=== PATIENT | female | born 1945 | race Caucasian/White ===

== ENCOUNTER 2017-10-13 05:30 | Day surgery (SDC) | payer MEDICARE ==
[~2017-10-13] VITALS: Ht 157.5 cm; Wt 102.1 kg
[~2017-10-13 05:30] MED LIST: ALENDRONATE SOD70 MG PO; AZATHIOPRINE50 MG; AZATHIOPRINE50 MG PO; CLONIDINE HCL0.1 MG PO; CYCLOSPORINE25 MG PO; DULOXETINE HCL60 MG PO; FLUTICASONE PRO16 GM NAS; FLUTICASONE PRO16 GM NS; FUROSEMIDE20 MG PO; GABAPENTIN100 MG PO; GABAPENTIN400 MG PO; GABAPENTIN600 MG PO; HYDROCODON-ACE1 EA10 PO; LEVOTHYROXINE125 MCG PO; METHADONE HCL10 MG PO; METOPROLOL TART50 MG PO; NORCO 5-325 TA1 EACH PO; NORCO 7.5-3251 EACH PO; ONDANSETRON ODT4 MG PO; PRAVASTATIN SOD10 MG PO; SANDIMMUNE25 MG PO; TOPROL XL200 MG PO; TRAZODONE HCL100 MG PO; VICODIN 5-3001 EACH PO; VITAMIN B12-FO1 EACH PO; ZOFRAN4 MG PO
--- NOTE | 2017-10-13 08:47 | NUR ---
10/13/17 0847 Milagro Nolasco 0827 PT ARRIVED REACTIVE, RESP EVEN AND UNLABORED. PT MAINTAINING OWN AIRWAY. PT REORIENTED TO PACU. 0830 PT REPORITNG PAIN 6/10, SOFTWARE COMPUTER SPECIALIST AT BEDSIDE AND PAIN MEDICAITON GIVEN BY SOFTWARE COMPUTER SPECIALIST. 0837 O2 DECREASED TO 4L VIA NC. O2 SAT 98%. 0840 PT REPORTS PAIN DECREASED TO 4/10 AND TOLERABLE, HOB INCREASED TO 30 DEGREES PER REQUEST. 0847 PT ALSEEP, VSS.
[2017-10-13] MEDS ORDERED: OXYCODONE HCL5 MG PO (09:39)
--- NOTE | 2017-11-08 11:11 | OR ---
[facility] [address], [place] [address] Signed DATE OF OPERATION: 10/13/2017 SURGEON: Ofelia Maher DO PREOPERATIVE DIAGNOSES: 1. Postmenopausal bleeding. 2. Thickened endometrium. 3. Fibroid uterus. 4. Chronic kidney disease stage III. 5. Restrictive lung disease. 6. Iatrogenic immunosuppression, status post liver transplant. 7. Obesity. POSTOPERATIVE DIAGNOSES: 1. Postmenopausal bleeding. 2. Endometrial polyp. 3. Thickened endometrium. 4. Chronic kidney disease stage III. 5. Restrictive lung disease. 6. Iatrogenic immunosuppression, status post liver transplant. 7. Cervical stenosis. 8. Obesity. PROCEDURES PERFORMED: 1. Hysteroscopic polypectomy. 2. Dilation and curettage. VICE PRESIDENT OF BRAND MANAGEMENT: Jose Maria Anguiano MD. ANESTHESIA: LMA. ESTIMATED BLOOD LOSS: 10 mL. SPECIMENS: 1. Endometrial polyp. 2. Endometrial biopsy. Electronically Signed By: OFELIA MAHER DO 11/08/17 1111 PATIENT NAME: COLE ERNST OPERATIVE REPORT DATE OF : 45 REPORT #: [id number] PHYSICIAN: OFELIA MAHER DO PCP: KI DE JESUS DO REPORT IS CONFIDENTIAL AND NOT TO BE RELEASED WITHOUT AUTHORIZATION [facility] [address] [place] [id number] Signed FINDINGS: The patient with narrow vaginal introitus. Normal vagina for postmenopausal female that is well-supported with a very small cervix at the apex. Cervix with significant cervical stenosis. Cervical canal with a small polyp and further up into the endometrial canal, there is a large, irregular polyp noted. The endometrium is irregular appearing throughout. COMPLICATIONS: None. INDICATIONS FOR PROCEDURE: Ms. Ernst is a pleasant 71-year-old postmenopausal female, who presented for postmenopausal bleeding. This started approximately one month ago. She went through menopause in her late 40s. She was never on hormonal contraception and has never been . Her last Pap smear was approximately six years ago and she has never had an abnormal Pap. An ultrasound was performed that showed thickened endometrium at 8.4 mm with focal microcalcifications and a heterogeneous myometrium. The patient's medical history is complicated by liver transplant, restrictive lung disease, and chronic kidney disease stage III. Her case was reviewed with her primary care physician, Dr. De Jesus, who felt that she was in optimal health condition for surgery. Risks, benefits, and alternatives were discussed in detail with the patient. The patient understands and wishes to proceed with the procedure. DESCRIPTION OF PROCEDURE: The patient was taken to the operating room. Time-out was performed to confirm correct patient and correct procedure. LMA anesthesia was established and the patient was prepped and draped in the dorsal lithotomy position with her feet in Yellofin stirrups. ICPs were on running and no preop antibiotics or heparin were indicated. The introitus was very narrow and [place] retractors were used to visualize the cervix. This proved to be difficult and a narrow Daisy speculum was then used with much improved visualization of the cervix. Anterior lip of the cervix was grasped with a single-tooth tenaculum. The cervical os was noted to be stenotic and it was serially dilated using lacrimal dilators as well as Hegar dilators. Once the os was dilated to a #5 Hegar dilator, the operative scope was placed into the cervical os and advanced under direct visualization into the uterine cavity. An endocervical polyp was noted as well as a large endometrial polyp. The endometrium appeared irregular throughout with calcifications. A MyoSure Reach device was selected and used to resect the endocervical and endometrial polyp. A separate biopsy was performed to resect the endometrium with customer account representative sampling throughout. The hysteroscope was withdrawn. The single-tooth tenaculum removed and the cervix noted to be hemostatic. The patient was then taken to PACU in good and stable condition after the perineum was evaluated and found to have no lacerations noted. Electronically Signed By: OFELIA MAHER DO 11/08/17 1111 PATIENT NAME: COLE ERNST OPERATIVE REPORT DATE OF : 45 REPORT #: [id number] PHYSICIAN: OFELIA MAHER DO PCP: KI DE JESUS DO REPORT IS CONFIDENTIAL AND NOT TO BE RELEASED WITHOUT AUTHORIZATION [facility] [address] [id number] Signed Sponge, needle, and instrument count were correct x2 at the end of the procedure. Dr. Anguiano was present and assisted with retraction and visualization given the difficulty of visualization. Ofelia Maher DO JELISE/FAROOQ /[id number] Copies: ~ Electronically Signed By: OFELIA MAHER DO 11/08/17 1111 PATIENT NAME: COLE ERNST OPERATIVE REPORT DATE OF : 45 REPORT #: [id number] PHYSICIAN: OFELIA MAHER DO PCP: KI DE JESUS DO REPORT IS CONFIDENTIAL AND NOT TO BE RELEASED WITHOUT AUTHORIZATION
== END 2017-10-13 10:10 | disposition home or self-care (01) ==
LOC: DS 05:30 → OPS 05:30 → DS 06:45 → OPS 10:10
PROVIDERS: Obstetrics & Gynecology
PROC: 0UDB8ZZ Extraction of Endometrium, Via Natural or Artificial Opening Endoscopic (ICD-10-PCS; 2017-10-13)
PROC: 0UB98ZZ Excision of Uterus, Via Natural or Artificial Opening Endoscopic (ICD-10-PCS; principal; 2017-10-13 06:45)
DX: N85.02 Endometrial intraepithelial neoplasia [EIN] (principal); I12.9 Hypertensive chronic kidney disease with stage 1 through stage 4 chronic kidney disease, or unspecified chronic kidney disease; N18.3 Chronic kidney disease, stage 3 (moderate); E78.00 Pure hypercholesterolemia, unspecified; E03.9 Hypothyroidism, unspecified; D63.1 Anemia in chronic kidney disease; J98.4 Other disorders of lung; M54.6 Pain in thoracic spine; M54.5 Low back pain; G89.29 Other chronic pain; E66.9 Obesity, unspecified; Z79.899 Other long term (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; Z68.41 Body mass index [BMI] 40.0-44.9, adult
CPT/HCPCS: 00952; 88305; J1885; J2704; J3010; J7120

== ENCOUNTER 2018-02-01 08:29 | Inpatient (IN) | payer MEDICARE, MEDICAID ==
[~2018-02-01] VITALS: Ht 157.5 cm; Wt 98.2 kg
--- OUTSIDE RECORDS SUMMARY | ~2018-02-01 | XMS | Clinical Summary ---
Demographics + + + | Address | [address] | | | [place] [address] | + + + | Home Phone | | + + + | Preferred Language | Unknown | + + + | Marital Status | | + + + | Sabianism Affiliation | 1041 | + + + | Race | Unknown | + + + | Ethnic Group | Unknown | + + + Author + + + | Author | [facility] | + + + | Organization | [facility] [employer] [facility] | + + + | Address | Unknown | + + + | Phone | Unavailable | + + + Support + + +---------+ + | Name | Relationship | Address | Phone | + + +---------+ + | Annie Tipton | ECON | Unknown | | + + +---------+ + Care Team Providers + +------+ + | Care Internet Architect Name | Role | Phone | + [...] + + | Vaccine: Influenza | | | | | (#1) | 8 | | | + + + + [...] | MA - GENERIC | MA-GEN | [id number] | Medica | | | | | [...] | Self | [birth year] | Home: | [facility] | | | al/Fam | | 1946 | [phone] | | | [place] | | | [address] | [place] | | | | | | | [address] | + +--------+ +--------+ + +
--- OUTSIDE RECORDS SUMMARY | ~2018-02-01 | XMS ---
Demographics + + + | Address | [address] | | | [address] | | | [place] [address] | + + + | Preferred Language | Unknown | + + + | Marital Status | Unknown | + + + | Scientologist Affiliation | Unknown | + + + | Race | Unknown | + + + | Ethnic Group | Unknown | + + + Author + + + | Author | [facility] | + + + | Organization | [facility] | + + + | Address | [address] | | | [place] [address] | + + + | Phone | | + + + Care Team Providers + + + + | Care Scarfer Operator Name | Role | Phone | + + + + Unavailable | Unavailable | + + + + PROBLEMS +---------+ + + +--------+ + + | Type | Condition | ICD9-CM | BJY30-VT | Onset | Condition | SNOMED | | | | Code | Code | Dates | Status | Code | +---------+ + + +--------+ + + | Problem | Other | G89.29 | | | Active | 50608347 | | | chronic | | | | | | | | pain | | | | | | +---------+ + + +--------+ + + | Problem | Restrictiv | J98.4 | | | Active | 04148981 | | | e lung | | | | | | | | disease | | | | | | +---------+ + + +--------+ + + | Problem | Low back | | M54.5 | | Active | [id number] | | | pain | | | | | | +---------+ + + +--------+ + + | Problem | CKD | | N18.3 | | Active | [id number] | | | (chronic | | | | | | | | kidney | | | | | | | | disease) | | | | | | | | stage 3, | | | | | | | | GFR 30-59 | | | | | | | | ml/min | | | | | | +---------+ + + +--------+ + + | Problem | UTI | | N39.0 | | Active | 22715990 | | | (urinary | | | | | | | | tract | | | | | | | | infection) | | | | | | +---------+ + + +--------+ + + | Problem | Hypertensi | I11.9 | | | Active | 69740009 | | | ve | | | | | | | | arterioscl | | | | | | | | erotic | | | | | | | | cardiovasc | | | | | | | | ular | | | | | | | | disease | | | | | | +---------+ + + +--------+ + + | Problem | Hyperchole | | E78.0 | | Active | 09301046 | | | sterolemia | | | | | | +---------+ + + +--------+ + + | Problem | Hypothyroi | | E03.9 | | Active | 69433469 | | | d | | | | | | +---------+ + + +--------+ + + | Problem | B12 | | E53.8 | | Active | 78961721 | | | deficiency | | | | | | +---------+ + + +--------+ + + | Problem | Hypertensi | | I10 | | Active | 53814328 | | | on | | | | | | +---------+ + + +--------+ + + | Problem | S/P liver | Z94.4 | | | Active | [id number] | | | transplant | | | | | | +---------+ + + +--------+ + + ALLERGIES + + + + +--------+ | Substance | Reaction | Event Type | Date | Status | + + + + +--------+ | Codeine | stomach upset | Drug Allergy | Oct, | Active | + + + + +--------+ SOCIAL HISTORY No smoking Hx information available PLAN OF CARE + +---------+ | Activity | Details | + +---------+ +---+ | | +---+ + + + | Follow Up | 6 Months Reason:null | + + + VITAL SIGNS + + + + | Height | 63 in | 2016-10-22 | + + + + | Weight | 231.0 lbs | 2016-10-22 | + + + + | BMI | 40.92 kg/m2 | 2016-10-22 | + + + + | Heart Rate | 67 /min | 2016-10-22 | + + + + | Blood pressure systolic | 140 mm Hg | 2016-10-22 | + + + + | Blood pressure diastolic | 69 mm Hg | 2016-10-22 | + + + + MEDICATIONS + + + + + + + +--------+ | Medicati | Instruct | Dosage | Frequenc | Start | End Date | Duration | Status | | on | ions | | y | Date | | | | + + + + + + + +--------+ | Famciclo | Orally | 1 tablet | 8h | | | 14 days | Active | | vir 500 | every 8 | | | | | | | | MG | hrs | | | | | | | + + + + + + + +--------+ | CycloSPO | Orally | 3 | 12h | | | | Active | | RINE 25 | Twice a | capsules | | | | | | | MG | day | | | | | | | + + + + + + + +--------+ | Pravasta | Orally | 1 tablet | | | | | Active | | tin | Once a | | | | | | | | Sodium | day at | | | | | | | | 10 MG | bedtime | | | | | | | + + + + + + + +--------+ | Azathiop | Orally | 1 tablet | 24h | | | 30 | Active | | rine 50 | once a | | | | | | | | MG | day | | | | | | | + + + + + + + +--------+ | Fosamax | | 1 tablet | | 11 September, | 10 Jamaal, | 30 | Active | | 70 MG | | | | 2016 | 2016 | day(s) | | + + + + + + + +--------+ | Gabapent | | take 1 | | | | 86 | Active | | in 600 | | tablet | | | | | | | MG | | by mouth | | | | | | | | | three | | | | | | | | | times a | | | | | | | | | day | | | | | | + + + + + + + +--------+ | Metoprol | Orally | 1 tablet | 12h | May, | | | Active | | ol | Twice a | | | 2016 | | | | | Tartrate | day | | | | | | | | 100 MG | | | | | | | | + + + + + + + +--------+ | Levothyr | Orally | 1 tablet | 24h | 14 Aug, | | 30 | Active | | oxine | Once a | every | | 2016 | | | | | Sodium | day | morning | | | | | | | 100 MCG | | on an | | | | | | | | | empty | | | | | | | | | stomach | | | | | | + + + + + + + +--------+ | Lidocain | topical | apply | | 08 October, | | 14 days | Active | | e 2% | every 2 | lightly | | 2017 | | | | | | hours | to | | | | | | | | | affected | | | | | | | | | area | | | | | | + + + + + + + +--------+ | Duloxeti | Orally | 1 | 24h | | | 30 days | Active | | ne HCl | Once a | capsule | | | | | | | 30 MG | day | | | | | | | + + + + + + + +--------+ | Trazodon | Orally | 1 tablet | 24h | 28 September, | | 30 | Active | | e HCl | Once a | at | | 2016 | | day(s) | | | 100 MG | day | bedtime | | | | | | + + + + + + + +--------+ | Alendron | Orally | 1 tablet | 24h | Oct, | 27 Jamaal, | 30 | Active | | ate | Once a | | | 2016 | 2017 | day(s) | | | Sodium | day | | | | | | | | 70 MG | | | | | | | | + + + + + + + +--------+ RESULTS No Results PROCEDURES + + + + + | Procedure | Date Ordered | Related Diagnosis | Body Site | + + + + + | Est Level III | October 22, 2016 | | | | Intermediate | | | | + + + + + IMMUNIZATIONS No Known Immunizations"
--- OUTSIDE RECORDS SUMMARY | ~2018-02-01 | XMS ---
Demographics + + + | Address | [address] | | | [address] | | | [place] [address] | + + + | Preferred Language | Unknown | + + + | Marital Status | Unknown | + + + | Pentecostal Affiliation | Unknown | + + + | Race | Unknown | + + + | Ethnic Group | Unknown | + + + Author + + + | Author | [facility] | + + + | Organization | [facility] | + + + | Address | [address] | | | [place] [address] | + + + | Phone | | + + + Care Team Providers + + + + | Care Physical Metallurgist Name | Role | Phone | + + + + Unavailable | Unavailable | + + + + PROBLEMS + + + + + + + + | Type | Condition | ICD9-CM | KJH22-TN | Onset | Condition | SNOMED | | | | Code | Code | Dates | Status | Code | + + + + + + + + | Problem | Other | G89.29 | | | Active | 11607349 | | | chronic | | | | | | | | pain | | | | | | + + + + + + + + | Problem | Restrictiv | J98.4 | | | Active | 78374846 | | | e lung | | | | | | | | disease | | | | | | + + + + + + + + | Problem | Low back | | M54.5 | | Active | 394538642 | | | pain | | | | | | + + + + + + + + | Assessment | Herpes | B02.8 | | 08 October, | Active | 29341732 | | | zoster | | | 2017 | | | | | with | | | | | | | | complicati | | | | | | | | on | | | | | | + + + + + + + + | Assessment | Age-relate | | M81.0 | 08 October, | Active | [id number] | | | d | | | 2016 | | | | | osteoporos | | | | | | | | is without | | | | | | | | current | | | | | | | | pathologic | | | | | | | | al | | | | | | | | fracture | | | | | | + + + + + + + + | Problem | CKD | | N18.3 | | Active | 096115133 | | | (chronic | | | | | | | | kidney | | | | | | | | disease) | | | | | | | | stage 3, | | | | | | | | GFR 30-59 | | | | | | | | ml/min | | | | | | + + + + + + + + | Problem | UTI | | N39.0 | | Active | 27706280 | | | (urinary | | | | | | | | tract | | | | | | | | infection) | | | | | | + + + + + + + + | Problem | Hypertensi | I11.9 | | | Active | 55712068 | | | ve | | | | | | | | arterioscl | | | | | | | | erotic | | | | | | | | cardiovasc | | | | | | | | ular | | | | | | | | disease | | | | | | + + + + + + + + | Problem | Hyperchole | | E78.0 | | Active | 35174201 | | | sterolemia | | | | | | + + + + + + + + | Problem | Hypothyroi | | E03.9 | | Active | 70953258 | | | d | | | | | | + + + + + + + + | Problem | B12 | | E53.8 | | Active | 20292276 | | | deficiency | | | | | | + + + + + + + + | Problem | Hypertensi | | I10 | | Active | 91923390 | | | on | | | | | | + + + + + + + + | Problem | S/P liver | Z94.4 | | | Active | [id number] | | | transplant | | | | | | + + + + + + + + ALLERGIES + + + + +--------+ | Substance | Reaction | Event Type | Date | Status | + + + + +--------+ | Codeine | stomach upset | Drug Allergy | September, | Active | + + + + +--------+ SOCIAL HISTORY No smoking Hx information available PLAN OF CARE VITAL SIGNS + + + + | Height | 63 in | 2016-10-08 | + + + + | Weight | 233.2 lbs | 2016-10-08 | + + + + | BMI | 41.31 kg/m2 | 2016-10-08 | + + + + | Temperature | 97.8 degrees Fahrenheit | 2016-10-08 | + + + + | Heart Rate | 55 /min | 2016-10-08 | + + + + | Blood pressure systolic | 129 mm Hg | 2016-10-08 | + + + + | Blood pressure diastolic | 65 mm Hg | 2016-10-08 | + + + + MEDICATIONS + [...] Lidocain | topical | apply | | 19 September, | | 14 days | Active | | e 2% | every 2 | lightly | | 2016 | | | | | | hours | to | | | | | | | | | affected | | | | | | | | | area | | | | | | + + + + + + + +--------+ | Tramadol | Orally | 1-2 | | 08 October, | 24 September, | 5 days | Active | | HCl 50 | every 8 | tablets | | 2016 | 2016 | | | | MG | hrs prn | as | | | | | | | | | needed | | | | | | | | | for pain | | | | | | + + + + + + + +--------+ | Famciclo | Orally | 1 tablet | 8h | 08 October, | 2 Oct, | 14 days | Active | | vir 500 | every 8 | | | 2016 | 2016 | | | | MG | hrs [...] + | Est Level III | October 08, 2016 | | | | Intermediate | | | | + + + + + IMMUNIZATIONS No Known Immunizations"
--- OUTSIDE RECORDS SUMMARY | ~2018-02-01 | XMS | Clinical Summary ---
Demographics + + + | Address | [address] | | | [place] [address] | + + + | Home Phone | | + + + | Preferred Language | Unknown | + + + | Marital Status | Single | + + + | Advent Affiliation | 1041 | + + + | Race | Unknown | + + + | Ethnic Group | Unknown | + + + Author + + + | Author | [facility] | | | and [place] | + + + | Organization | [facility] | | [...] Providers + +------+ + | Care Gas Reverser Name | Role | Phone | + [...] + + + Current Medications + + +-------+---------+------+------+-------+ | Prescription | Sig. | Disp. | Refills | Star | End | Statu | | | | | | t | Date | s | | | | | | Date | | | + + +-------+---------+------+------+-------+ | furosemide (LASIX) | Take 20 mg by mouth | | | | | Activ | | 20 mg tablet | Daily. | | | | | e | + + +-------+---------+------+------+-------+ | gabapentin | Take 600 mg by mouth | | | | | Activ | | (NEURONTIN) 600 MG | 3 times daily. | | | | | e | | tablet | | | | | | | + + +-------+---------+------+------+-------+ | cycloSPORINE | Take 25 mg by mouth | | | | | Activ | | (SANDIMMUNE) 25 mg | 3 times daily. | | | | | e | | capsule | | | | | | | + + +-------+---------+------+------+-------+ | fluticasone | 1 spray by Nasal | | | | | Activ | | (FLONASE) 50 | route Daily. | | | | | e | | mcg/nasal spray | | | | | | | + + +-------+---------+------+------+-------+ | azaTHIOprine | Take 50 mg by mouth | | | | | Activ | | (IMURAN) 50 mg | Daily. | | | | | e | | tablet | | | | | | | + + +-------+---------+------+------+-------+ | metoprolol | Take 100 mg by mouth | | | | | Activ | | tartrate (LOPRESSOR) | 2 times daily. | | | | | e | | 50 mg tablet | | | | | | | + + +-------+---------+------+------+-------+ | Levothyroxine | Take by mouth every | | | | | Activ | | Sodium 125 MCG CAPS | morning (before | | | | | e | | | breakfast). | | | | | | + + +-------+---------+------+------+-------+ | methadone 10 mg | Take 10 mg by mouth | | | | | Activ | | tablet | 2 times daily. | | | | | e | + + +-------+---------+------+------+-------+ | | Take 1 tablet by | | | | | Activ | | HYDROcodone-acetamin | mouth every 6 hours | | | | | e | | ophen (NORCO) 5-325 | as needed. | | | | | | | mg per tablet | | | | | | | + + +-------+---------+------+------+-------+ | pravastatin | Take 10 mg by mouth | | | | | Activ | | (PRAVACHOL) 10 mg | nightly. | | | | | e | | tablet | | | | | | | + + +-------+---------+------+------+-------+ Active Problems + + + | Problem [...] | 02/12/2014 | | | (#1) | 8 | [...] | | | + +--------+ +--------+-------+---------+ | [facility] [facility] | [facility] | [id number] | Medica | | | | | HEALTH | | re | | | | | MDCR | | | | | + +--------+ +--------+-------+---------+ + +--------+ +--------+ + + | Guarantor Name | Accoun | Relation to | Date | Phone | Billing Address | | | t Type | Patient | of | | | | | | | | | | + +--------+ +--------+ + + | OPAL ERNST | Person | Self [birth year] | Home: | [address] | | [address] | al/Fam | | 1946 | [phone] | | | [place] | | | [address] | [place] | | | | | | | [address] | + +--------+ +--------+ + +
--- OUTSIDE RECORDS SUMMARY | ~2018-02-01 | XMS | Clinical Summary ---
Demographics + + + | Address | [address] | | | [place] [address] | + + + | Home Phone [...] + + + | Author | [facility] | | | and [place] | + + + | Organization | [facility] | | | [...] Providers + +------+ + | Care Manager Recruiting Name | Role | Phone | + [...] | [facility] | [facility] | [id number] | Medica | | | | | [...] Self | [birth year] | Home: | [address] [facility] [facility] [facility] | | [place] | al/Fam | | 1946 | [phone] | [address] | | | [place] | | | [address] | [place] | | | | | | | [address] | + +--------+ +--------+ + +
--- OUTSIDE RECORDS SUMMARY | ~2018-02-01 | XMS | Clinical Summary ---
Demographics + + + | Address | [address] | | | [place] [address] | + + + | Home Phone | | + + + | Preferred Language | Unknown | + + + | Marital Status | | + + + | Orthodox Affiliation | 1041 | + + + | Race | Unknown | + + + | Ethnic Group | Unknown | + + + Author + + + | Author | [facility] | + + + | Organization | [facility] [employer] [facility] | + + + | Address | Unknown | + + + | Phone | Unavailable | + + + Support + + +---------+ + | Name | Relationship | Address | Phone | + + +---------+ + | Annie Tipton | ECON | Unknown | | + + +---------+ + Care Team Providers + +------+ + | Care Call Center Rn Name | Role | Phone | [...] | MA - GENERIC | MA-GEN | [id number] | Medica | | | | | [...] | Self | [birth year] | Home: | [facility] | | | al/Fam | | 1946 | [phone] | | | [place] | | | [address] | [place] | | | | | | | [phone] | + +--------+ +--------+ + +
--- OUTSIDE RECORDS SUMMARY | ~2018-02-01 | XMS | Clinical Summary ---
Demographics + + + | Address | [address] | | | [place] [address] | + + + | Home Phone [...] Team Providers + +------+ + | Care Filter Cleaner Name | Role | Phone | [...] | [facility] | [facility] | [id number] | Medica | | | | | [...] Self | [birth year] | Home: | [address] [facility] | | [place] | al/Fam | | 1946 | [phone] | [address] | | | [place] | | | [address] | [place] | | | | | | | [address] | + +--------+ +--------+ + +
--- OUTSIDE RECORDS SUMMARY | ~2018-02-01 | XMS | Clinical Summary ---
Demographics + + + | Address | [address] | | | [place] [address] | + + + | Home Phone | | + + + | Preferred Language | Unknown | + + + | Marital Status | | + + + | Presybeterian Affiliation | 1041 | + + + | Race | Unknown | + + + | Ethnic Group | Unknown | + + + Author + + + | Author | [facility] | + + + | Organization | [facility] [employer] [facility] | + + + | Address | Unknown | + + + | Phone | Unavailable | + + + Support + + +---------+ + | Name | Relationship | Address | Phone | + + +---------+ + | Annie Tipton | ECON | Unknown | | + + +---------+ + Care Team Providers + +------+ + | Care Director Of Operations Name | Role | Phone | + [...] | MA - GENERIC | MA-GEN | [id number] | Medica | | | | | [...] | Self [birth year] | Home: | [facility] | | | al/Fam | | 1946 | [phone] | | | [place] | | | [address] | [place] | | | | | | | [address] | + +--------+ +--------+ + +
[~2018-02-01 08:29] MED LIST changes: -GABAPENTIN400 MG PO; +LEVOTHYROXINE100 MCG PO; -LEVOTHYROXINE125 MCG PO; +OXYCODONE HCL5 MG PO; -TOPROL XL200 MG PO
[2018-02-01] MEDS ORDERED: ALLOPURINOL100 MG PO (08:43)
[2018-02-01] MEDS ORDERED: CALCIUM + VITA1 EACH PO (08:43)
--- NOTE | 2018-02-01 15:13 | EKG ---
[facility] [address] [facility] [place] [address] Signed Atrial fibrillation with rapid ventricular response with premature ventricular or aberrantly conducted complexes Nonspecific ST and T wave abnormality Abnormal ECG When compared with ECG of 10-OCT-2017 09:18, Atrial fibrillation has replaced Sinus rhythm Vent. rate has increased BY [address] now depressed in Lateral leads Nonspecific T wave abnormality now evident in Inferior leads Nonspecific T wave abnormality now evident in Lateral leads Confirmed by OLIVERIO YU MD ([id number]) on 02/01/2018 3:13:46 PM Electronically Signed By: OLIVERIO YU MD 02/01/18 1513 PATIENT NAME: COLE ERNST Electrocardiogram DATE OF : 45 PHYSICIAN: OLIVERIO YU MD REPORT #: [id number] REPORT IS CONFIDENTIAL AND NOT TO BE RELEASED WITHOUT AUTHORIZATION
[2018-02-02] MEDS ORDERED: GABAPENTIN400 MG PO (10:43)
[2018-02-02] MEDS ORDERED: TOPROL XL200 MG PO (10:55)
[2018-02-03] MEDS ORDERED: MAGNESIUM400 M1 PO (10:03)
== END 2018-02-03 12:00 | disposition home or self-care (01) | DRG 309 ==
LOC: ED 08:29 → CCU 13:20
PROVIDERS: ADMIT Internal Medicine
DX: I48.0 Paroxysmal atrial fibrillation (principal); J96.11 Chronic respiratory failure with hypoxia; Z94.4 Liver transplant status; R07.9 Chest pain, unspecified; I10 Essential (primary) hypertension; K74.5 Biliary cirrhosis, unspecified; Z66 Do not resuscitate; E03.9 Hypothyroidism, unspecified; E78.5 Hyperlipidemia, unspecified; G89.4 Chronic pain syndrome; G25.81 Restless legs syndrome; E79.0 Hyperuricemia without signs of inflammatory arthritis and tophaceous disease; Z99.81 Dependence on supplemental oxygen
CPT/HCPCS: 36415; 51798; 71046; 71260; 80048; 80053; 80061; 80158; 83735; 83880; 84439; 84443; 84484; 85025; 85379; 93005; 93010; 93306; 96374; 96375; 96376; 99285; J1650; J3475; J7500; Q9967

== ENCOUNTER 2018-06-04 09:26 | Inpatient (IN) | payer MEDICARE, MEDICAID ==
[~2018-06-04] VITALS: Ht 157.5 cm; Wt 96.6 kg
[~2018-06-04 09:26] MED LIST changes: +ALLOPURINOL100 MG PO; +CALCIUM + VITA1 EACH PO; +GABAPENTIN400 MG PO; +MAGNESIUM400 M1 PO; +TOPROL XL200 MG PO; +WARFARIN SODIUM5 MG PO
[2018-06-04] MEDS ORDERED: OMEPRAZOLE20 MG PO (09:36)
[2018-06-04] MEDS ORDERED: MEDROXYPROGESTE10 MG PO (09:37)
[2018-06-04] MEDS ORDERED: PROGESTERONE100 MG PO ×2 (09:37)
[2018-06-04] MEDS ORDERED: FEOSOL45 MG PO (09:38)
[2018-06-04] MEDS ORDERED: VITAMIN D1000 UNIT PO (09:47)
--- NOTE | 2018-06-04 19:51 | EKG ---
[facility] [address] [facility] [place] [address] Signed Atrial fibrillation with rapid ventricular response with premature ventricular or aberrantly conducted complexes ST \T\ T wave abnormality, consider lateral ischemia Abnormal ECG When compared with ECG of 01-FEB-2018 08:31, ST now depressed in Inferior leads T wave amplitude has increased in Anterior leads Inverted T waves have replaced nonspecific T wave abnormality in Lateral leads Confirmed by CASSANDRA FLETCHER MD ([id number]) on 06/04/2018 7:51:27 PM Electronically Signed By: CASSANDRA FLETCHER MD 06/04/181950 PATIENT NAME: COLE ERNST Electrocardiogram DATE OF : 45 PHYSICIAN: CASSANDRA FLETCHER MD REPORT #: [id number] REPORT IS CONFIDENTIAL AND NOT TO BE RELEASED WITHOUT AUTHORIZATION
[2018-06-04] MEDS ORDERED: TRAZODONE HCL100 MG PO (20:09)
[2018-06-05] MEDS ORDERED: PROGESTERONE100 MG PO (11:53)
--- NOTE | 2018-06-06 06:21 | EKG ---
[facility] [address] [place] [address] Signed Normal sinus rhythm Nonspecific ST and T wave abnormality Abnormal ECG When compared with ECG of 04-JUN-2018 09:35, Sinus rhythm has replaced Atrial fibrillation Vent. rate has decreased BY [address] no longer depressed in Lateral leads Nonspecific T wave abnormality now evident in Inferior leads Nonspecific T wave abnormality now evident in Anterior leads T wave inversion no longer evident in Lateral leads Confirmed by CASSANDRA FLETCHER MD ([id number]) on 06/06/2018 6:20:48 AM Electronically Signed By: CASSANDRA FLETCHER MD 06/06/18 0621 PATIENT NAME: COLE ERNST Electrocardiogram DATE OF : 45 PHYSICIAN: CASSANDRA FLETCHER MD REPORT #: [id number] REPORT IS CONFIDENTIAL AND NOT TO BE RELEASED WITHOUT AUTHORIZATION
[2018-06-08] MEDS ORDERED: DOXYCYCLINE HY100 MG PO (10:39)
[2018-06-08] MEDS ORDERED: DILTIAZEM 24HR120 MG PO (10:41)
== END 2018-06-08 11:45 | disposition home or self-care (01) | DRG 308 ==
LOC: ED 09:26 → CCU 12:24 → MS 06-06 11:25
PROVIDERS: ADMIT Internal Medicine
DX: I48.2 Chronic atrial fibrillation (principal); J18.9 Pneumonia, unspecified organism; N17.9 Acute kidney failure, unspecified; Z99.81 Dependence on supplemental oxygen; R79.89 Other specified abnormal findings of blood chemistry; G25.81 Restless legs syndrome; E03.9 Hypothyroidism, unspecified; Z87.891 Personal history of nicotine dependence; K74.60 Unspecified cirrhosis of liver
CPT/HCPCS: 36415; 36600; 51701; 51798; 71045; 80048; 80053; 80158; 81001; 82803; 83605; 83735; 84484; 85025; 85610; 87088; 87502; 93005; 93010; 96361; 96374; 97116; 97162; 99285-25; J0456; J0696; J3475; J7030

== ENCOUNTER 2018-10-13 08:24 | Emergency (ER) | payer MEDICARE, MEDICAID ==
[~2018-10-13] VITALS: Ht 157.5 cm; Wt 95.2 kg
--- OUTSIDE RECORDS SUMMARY | ~2018-10-13 | XMS | Clinical Summary ---
Demographics + + + | Address | [address] | | | [place] [address] | + + + | Home Phone | | + + + | Preferred Language | Unknown | + + + | Marital Status | Single | + + + | Adventist Affiliation | 1041 | + + + | Race | Unknown | + + + | Ethnic Group | Unknown | + + + Author + + + | Author | [facility] | | | and [place] | + + + | Organization | [facility] | | | and [...] Team Providers + +------+ + | Care Blasting Worker Name | Role | Phone | + +------+ + | Yovani Santana MD | PP | Unavailable | + +------+ + Allergies + + [...] + + + + | Name | Dates Previously Given | Next Due | + + + [...] | healthy | + + +------+ + + +------+ [...] + +---------+ + | Alcohol Use | Drinks/We | oz/Week | Comments | | | ek | | | + + +---------+ + | Yes | 7 | 3.5 | beer nightly | | | Standard | | | | | drinks or | | | | | | | | | | equivalen | | | | | t | | | + + +---------+ + [...] Filed Vital Signs + + + + | Vital Sign | Reading | Time Taken | + + + + | Blood Pressure | 124/76 | 05/10/2014 1358 PST | + + + + | Pulse | 60 | 05/10/2014 1358 PST | + + + + | Temperature | 36.4 C (97.6 F) | 03/04/2014 1455 PDT | + + + + | Respiratory Rate | 16 | 01/02/2014 1123 PDT | + + + + | Oxygen Saturation | 96% | 05/10/20141357 PST | + + + + | Inhaled Oxygen | - | - | | Concentration | | | + + + + | Weight | 97.8 kg (215 lb 9.6 | 05/10/20141357 PST | | | oz) | | + + + + | Height | 160 cm (5' 3") | 05/10/20141357 PST | + + + + | Body Mass Index | 38.19 | 05/10/20141357 PST | + + + + Plan of Treatment + + + + + | Health Maintenance | Due Date | Last Done | Comments | + + + + + | Vaccine: | | | | | Dtap/Tdap/Td (1 - | 5 | | | | Tdap) | | | | + + + + + | Vaccine: Zoster (1 | | | | | of 2) | 6 | | | + + + + + | Vaccine: | | | | | Pneumococcal 65+ | 1 | | | | Low/Medium Risk (1 | | | | | of 2 - PCV13) | | | | + + + + + | Vaccine: Influenza | | 02/12/2014 | | | (Season Ended) | 9 | | | + + [...] | | + +--------+ +--------+-------+---------+--------+ | [employer] | MODA | [id number] | 05/23/19 | | | Medica | [...] Person | Self | [birth year] | [address] | | Codie | al/Fam | | 1946 | [phone] | | | [place] | | | [address] (Home) | [place] | | | | | | | [address] | + +--------+ +--------+ + + Advance Directives Patient has advance care planning documents on file. For more information, please contact:[facility] and [facility] [place] [address]
--- OUTSIDE RECORDS SUMMARY | ~2018-10-13 | XMS | Clinical Summary ---
Demographics + + + | Address | [address] | | | [place] [address] | + + + | Home Phone | | + + + | Preferred Language | Unknown | + + + | Marital Status | | + + + | Yazidism Affiliation | 1041 | + + + | Race | Unknown | + + + | Ethnic Group | Unknown | + + + Author + + + | Author | [facility] | + + + | Organization | [facility] | + + + | Address | Unknown | + + + | Phone | Unavailable | + + + Support + + +---------+ + | Name | Relationship | Address | Phone | + + +---------+ + | Annie Tipton | ECON | Unknown | | + + +---------+ + Care Team Providers + +------+ + | Care Manager Office Name | Role | Phone | + [...] | MA - GENERIC | MA-GEN | [id number] | Medica | | | | | [...] Self | [birth year] | Home: | [address] | | | al/Fam | | 1946 | [phone] | | | [place] | | | [phone] | [place] | | | | | | | [address] | + +--------+ +--------+ + +
--- OUTSIDE RECORDS SUMMARY | ~2018-10-13 | XMS | Clinical Summary ---
Demographics + + + | Address | [address] | | | [place] [address] | + + + | Home Phone [...] Team Providers + +------+ + | Care Operator Technician Name | Role | Phone | [...] | | + +--------+ +--------+-------+---------+--------+ | [employer] | MODA | [id number] | 05/23/19 | | | Medica | [...] | | | | | | | [phone] | + +--------+ +--------+ + + Advance Directives Patient has advance care planning documents on file. For more information, please contact:[facility] and [facility] [place] [address]
--- OUTSIDE RECORDS SUMMARY | ~2018-10-13 | XMS | Clinical Summary ---
Demographics + + + | Address | [address] | | | [place] [address] | + + + | Home Phone | | + + + | Preferred Language | Unknown | + + + | Marital Status | | + + + | Worship Affiliation | 1041 | + + + | Race | Unknown | + + + | Ethnic Group | Unknown | + + + Author + + + | Author | [facility] | + + + | Organization | [facility] | + + + | Address | Unknown | + + + | Phone | Unavailable | + + + Support + + +---------+ + | Name | Relationship | Address | Phone | + + +---------+ + | Annie Tipton | ECON | Unknown | | + + +---------+ + Care Team Providers + +------+ + | Care Grounds And Nursery Specialist Name | Role | Phone | [...] | MA - GENERIC | MA-GEN | [id number] | Medica | | | | | [...] | | | | | | | [address] | + +--------+ +--------+ + +
[~2018-10-13 08:24] MED LIST changes: +DILTIAZEM 24HR120 MG PO; +DOXYCYCLINE HY100 MG PO; +FEOSOL45 MG PO; +MEDROXYPROGESTE10 MG PO; +OMEPRAZOLE20 MG PO; +PROGESTERONE100 MG PO; +VITAMIN D1000 UNIT PO
--- OUTSIDE RECORDS SUMMARY | 2018-10-13 08:28 | XMS ---
PreManage Notification: COLE ERNST Security Polygraph Operator Events No recent Security Events currently on file CRITERIA MET - [facility] - Has Care Guidelines CARE PROVIDERS K[facility] DE JESUS Internal Medicine 02/06/2018-Current PHONE: Unknown Anu has no Care Guidelines for this patient. Care History Medical/Surgical 02/06/2018 [facility] - Patient is currently established with [facility]. If patient is seen in the ED during business hours. Please contact CHWs at [facility]. Care Recommendation: This patient has had 5 or more Emergency Department visits in the last 12 months.\T\nbsp; Patient requires education on the scope and purpose of the ED as an acute care provider not a Primary Care Provider and should not be utilized for chronic conditions.\T\nbsp; These are guidelines and the provider should exercise clinical judgment when providing care. E.D. VISIT COUNT (12 MO.) 3 [facility] TOTAL 3 NOTE: Visits indicate total known visits. ED/UCC VISIT TRACKING (12 MO.) 10/13/2018 08:25 [facility] [place] TYPE: Emergency COMPLAINT: - R ANKLE PAIN/INJURY 06/04/2018 09:27 [facility] [place] TYPE: Emergency COMPLAINT: - WEAKNESS/COUGH 02/01/2018 08:30 [facility] [place] TYPE: Emergency COMPLAINT: - CHEST DISCOMFORT INPATIENT VISIT TRACKING (12 MO.) 06/04/2018 12:24 [facility] [place] TYPE: Medical Surgical COMPLAINT: - AFIB WITH RVR DIAGNOSES: - Personal history of nicotine dependence - Acute kidney failure, unspecified - Unspecified cirrhosis of liver - Hypothyroidism, unspecified - Personal history of nicotine dependence - Pneumonia, unspecified organism - Restless legs syndrome - Hypothyroidism, unspecified - Restless legs syndrome - Pneumonia, unspecified organism - Other specified abnormal findings of blood chemistry - Chronic atrial fibrillation - Acute kidney failure, unspecified - Unspecified cirrhosis of liver - Other specified abnormal findings of blood chemistry - Dependence on supplemental oxygen - Dependence on supplemental oxygen 02/01/2018 13:20 [facility] [place] TYPE: Critical Care COMPLAINT: - AFIB WITH RVR DIAGNOSES: - Liver transplant status - Do not resuscitate - Biliary cirrhosis, unspecified - Chest pain, unspecified - Unspecified atrial fibrillation - Chronic respiratory failure with hypoxia - Chronic pain syndrome - Hyperlipidemia, unspecified - Essential (primary) hypertension - Hypothyroidism, unspecified - Restless legs syndrome - Hyperuricemia without signs of inflammatory arthritis and tophaceous disease - Paroxysmal atrial fibrillation - Dependence on supplemental oxygen [email or web address]
== END 2018-10-13 09:30 | disposition home or self-care (01) ==
LOC: ED 08:24
DX: S93.601A Unspecified sprain of right foot, initial encounter (principal); N18.9 Chronic kidney disease, unspecified; E03.9 Hypothyroidism, unspecified; I48.91 Unspecified atrial fibrillation; Z87.891 Personal history of nicotine dependence; Z88.5 Allergy status to narcotic agent; Z79.01 Long term (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; Z79.899 Other long term (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; X50.1XXA Overexertion from prolonged static or awkward postures, initial encounter
CPT/HCPCS: 73630; 99283

== ENCOUNTER 2019-05-06 15:13 | Emergency (ER) | payer MEDICARE, OTHER ==
[~2019-05-06] VITALS: Ht 157.5 cm; Wt 91.2 kg
--- OUTSIDE RECORDS SUMMARY | ~2019-05-06 | XMS | Encounter Summary ---
Demographics + + + | Address | [address] | | | [place] [address] | + + + | Home Phone | | + + + | Preferred Language | Unknown | + + + | Marital Status | Single | + + + | Sabianism Affiliation | 1041 | + + + | Race | Unknown | + + + | Ethnic Group | Unknown | + + + Author + + + | Author | [facility] | | | and [place] | + + + | Organization | [facility] | | | [...] Team Providers + +------+ + | Care Base Remover Name | Role | Phone | + +------+ + | Rick sOorio DO | PCP | | + +------+ + Encounter Details +--------+ + + + + | Date | Type | Department | Care Team | Description | +--------+ + + + + | 12/05/ | Orders Only | [facility] | Emil Oliva MD | | | 2013 | | NEPRHOLOGY [place] | [address] [facility] | | | | | [address] | [address] [place], [place] | | | | | [address] [place], [place] | [address] | | | | | [address] | | | | | | [phone] | | | +--------+ + + + [...] + | URINALYSIS WITH | Routin | 12/05/2013 | | Results for this | | MICROSCOPIC WITH | e | 12:00 AM | | procedure are in the | | CULTURE IF INDICATED | | PDT | | results section. | + +--------+ + + + | PROTEIN/CREATININE | Routin | 12/05/2013 | | Results for this | | RATIO, URINE | e | 12:00 AM | | procedure are in the | | | | PDT | | results section. | + +--------+ + + + | PROTEIN, URINE, | Routin | 12/05/2013 | | Results for this | | RANDOM | e | 12:00 AM | | procedure are in the | | | | PDT | | results section. | + +--------+ + + + | CREATININE, URINE, | Routin | 12/05/2013 | | Results for this | | RANDOM | e | 12:00 AM | | procedure are in the | | | | PDT | | results section. | + +--------+ + + + documented in this encounter Results Urinalysis with Microscopic with Culture if Indicated (12/05/2013 12:00 AM PDT) + + + + + [...] + + + | Spec Grav, | 1.015 | | EXTERNAL | | | Fluid | | | LAB | | + + + + + + | Leukocyte | 4+Comment: 500 | | EXTERNAL | | | Esterase, | | | LAB | | | Urine | | | | | + + + + + + | Nitrite, | 1+ | | EXTERNAL | | | Urine | | | LAB | | + + + + + + | Urobilinoge | Normal | | EXTERNAL | | | n, Urine | | | LAB | | + + + + + + | Total | 25 | | EXTERNAL | | | Protein | | | LAB | | + + + + + + | pH, Urine | 5 | | EXTERNAL | | | | [...] + +---------+ + + Protein/Creatinine Ratio, Urine (12/05/2013 12:00 AM PDT) + +-------+ + + + | Component | Value | Ref Range | Performed | Pathologist | | | | | At | Signature | + +-------+ + + + | Protein/Cre | 103 | | EXTERNAL | | | at [...] + +---------+ + + Protein, Urine, Random (12/05/2013 12:00 AM PDT) + +-------+ + + + | Component | Value | Ref Range | Performed | Pathologist | | | | | At | Signature | + +-------+ + + + | Protein, | 45 | | EXTERNAL | | | Urine [...] + +---------+ + + Creatinine, Urine, Random (12/05/2013 12:00 AM PDT) + +-------+ + + + | Component | Value | Ref Range | Performed | Pathologist | | | | | At | Signature | + +-------+ + + + | Creatinine, | 436.9 | | EXTERNAL | | | 24H [...]
--- OUTSIDE RECORDS SUMMARY | ~2019-05-06 | XMS | Encounter Summary ---
Demographics + + + | Address | [address] | | | [place] [address] | + + + | Home Phone | | + + + | Preferred Language | Unknown | + + + | Marital Status | Unknown | + + + | Yarsani Affiliation | Unknown | + + + | Race | Unknown | + + + | Ethnic Group | Unknown | + + + Author + + + | Author | [facility] | + + + | Organization | [facility] | + + + | Address | Unknown | + + + | Phone | Unavailable | + + + Care Team Providers + +------+ + | Care Safety Specialist Name | Role | Phone | + [...] + + | 03/28/ | Telephone | Transplant | Laura Mercado, | Liver Transplant | | 2019 | | Coordinators [address] | RN [address] | Referral | | | | [address] [facility] | [address] | | | | | Rd [place], [place] | [place], [place] | | | | | [address] | [address] | | | | | [phone] | | | +--------+ + + + [...]
--- OUTSIDE RECORDS SUMMARY | ~2019-05-06 | XMS | Encounter Summary ---
Demographics + + + | Address | [address] | | | [place] [address] | + + + | Home Phone | | + + + | Preferred Language | Unknown | + + + | Marital Status | Unknown | + + + | Christianity Affiliation | Unknown | + + + | Race | Unknown | + + + | Ethnic Group | Unknown | + + + Author + + + | Author | [facility] | + + + | Organization | [facility] | + + + | Address | Unknown | + + + | Phone | Unavailable | + + + Care Team Providers + +------+ + | Care Pharmacology Professor Name | Role | Phone | + +------+ + PCP | Unavailable | + +------+ + Reason for Visit +--------+ + | Reason | Comments | +--------+ + | Sepsis | | +--------+ + Encounter Details +--------+ + + + + | Date | Type | Department | Care Team | Description | +--------+ + + + + | 01/28/ | Emergency | [facility] | | | | 2014 | | Department [address] | | | | [address] | | | | | | [facility] | | | | | | [place], [place] | | | | | | [address] | | | | | | [phone] | | | +--------+ + + + [...]
--- OUTSIDE RECORDS SUMMARY | ~2019-05-06 | XMS | Encounter Summary ---
Demographics + + + | Address | [address] | | | [place] [address] | + + + | Home Phone [...] + + | Author | [facility] | | | and [place] | + + + | Organization | [facility] | | | [...] Team Providers + +------+ + | Care Molasses Coloring Operator Name | Role | Phone | [...] + + | 03/26/ | Office | [facility] | Gary Melendez, | Hypoxemia (Primary | | 2014 | Visit | PULMONARY [address] | MD [address] | Dx); Kyphosis | | | | [place], | [place], [place] | deformity of spine; | | | | [place] [address] | [address] | Restrictive lung | | | | [phone] | | disease | +--------+---------+ + + [...] documented in this encounter Plan of Treatment + + +--------+ + + | Name [...] + | MISCELLANEOUS LAB | | | [phone] | + +---------+ + + | MISCELANIOUS LAB | | | [phone] | + +---------+ + + documented in this encounter Visit Diagnoses + + | Diagnosis | + + | Hypoxemia - Primary | + + | 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
--- OUTSIDE RECORDS SUMMARY | ~2019-05-06 | XMS | Clinical Summary ---
Demographics + + + | Address | [address] | | | [place] [address] | + + + | Home Phone | | + + + | Preferred Language | Unknown | + + + | Marital Status | Single | + + + | Mandaeism Affiliation | 1041 | + + + | Race | Unknown | + + + | Ethnic Group | Unknown | + + + Author + + + | Author | [facility] | | | and [place] | + + + | Organization | [facility] [...] Team Providers + +------+ + | Care Diabetes Clinical Manager Name | Role | Phone | [...] | [employer] | [employer] | [id number] | 05/23/19 | | | Medica | [...] Person | Self | [birth year] | [address] | | [place]ie | al/Fam | | 1946 | [phone] | | | [place] | | | [address] (Home) | [place] | | | | | | | [address] | + +--------+ +--------+ + + Advance Directives + + + + + | Type | Date Recorded | Patient | Explanation | | | | Development Representative | | + + + + + | Power of | | | | | Industrial Furnace Fabricator | | | | + + + + + | Advance | 05/10/2014 | | | | Directive | 12:33 PM | | | + + + + +
--- OUTSIDE RECORDS SUMMARY | ~2019-05-06 | XMS | Encounter Summary ---
Demographics + + + | Address | [address] | | | [place] [address] | + + + | Home Phone | | + + + | Preferred Language | Unknown | + + + | Marital Status | Single | + + + | Anabaptist Affiliation | 1041 | + + + [...] Team Providers + +------+ + | Care Paper Sorter Name | Role | Phone | + +------+ + | Rick Osorio DO | PCP | | + +------+ + Encounter Details +--------+ + + + + | Date | Type | Department | Care Team | Description | +--------+ + + + + | 11/15/ | Orders Only | [facility] | Emil Oliva MD | | | 2014 | | NEPRHOLOGY [place] | [address] [facility] | | | | | [address] | [address] [place], [place] | | | | | [address] [place], [place] | [address] | | | | | [address] | | | | | | [phone] | | | +--------+ + + + [...] | | | LAB | | | [facility] | | | | | + + [...]
--- OUTSIDE RECORDS SUMMARY | ~2019-05-06 | XMS | Encounter Summary ---
Demographics + + + | Address | [address] | | | [place] [address] | + + + | Home Phone | | + + + | Preferred Language | Unknown | + + + | Marital Status | Unknown | + + + | Mormonism Affiliation | Unknown | + + + | Race | Unknown | + + + | Ethnic Group | Unknown | + + + Author + + + | Author | [facility] | + + + | Organization | [facility] | + + + | Address | Unknown | + + + | Phone | Unavailable | + + + Care Team Providers + +------+ + | Care Director Trial Name | Role | Phone | + [...] Referral | | | | [address] [facility] [facility] | [facility] | | | | | Rd [place], [place] | [place], [place] | | | | | [address] | [address] | | | | | [phone] | | | +--------+ + + + [...]
--- OUTSIDE RECORDS SUMMARY | ~2019-05-06 | XMS | Encounter Summary ---
Demographics + + + | Address | [address] | | | [place] [address] | + + + | Home Phone | | + + + | Preferred Language | Unknown | + + + | Marital Status | Single | + + + | Samaritan Affiliation | 1041 | + + + | Race | Unknown | + + + | Ethnic Group | Unknown | + + + Author + + + | Author | [facility] | | | and [place] | + + + | Organization | [facility] | | | and [...] Team Providers + +------+ + | Care Pmo Business Analyst Name | Role | Phone | + +------+ + | Rick Osorio DO | PCP | | + +------+ + Encounter Details +--------+ + + + + | Date | Type | Department | Care Team | Description | +--------+ + + + + | 11/15/ | Orders Only | [facility] | Emil Oliva MD | | | 2014 | | NEPHROLOGY [place] | [address] | | | | | [address] | [address] [place], [place] | | | | | [address] [place], [place] | [address] | | | | | [address] | | | | | | [phone] | | | +--------+ + + + [...]
--- OUTSIDE RECORDS SUMMARY | ~2019-05-06 | XMS | Encounter Summary ---
Demographics + + + | Address | [address] | | | [place] [address] | + + + | Home Phone [...] | Author | [facility] | | | and [place] | + + + | Organization | [facility] | | | and [...] Team Providers + +------+ + | Care Virology Teacher Name | Role | Phone | [...] [address] | Dx) | | | | [place], | [place], [place] | | | | | [place] [address] | [address] | | | | | [phone] | | | +--------+ + + + [...]
--- OUTSIDE RECORDS SUMMARY | ~2019-05-06 | XMS | Encounter Summary ---
Demographics + + + | Address | [address] | | | [place] [address] | + + + | Home Phone [...] Team Providers + +------+ + | Care Refinery Pipeline Operator Name | Role | Phone | + +------+ + | Rick Osorio DO | PCP | | + +------+ + Encounter Details +--------+ + + + + | Date | Type | Department | Care Team | Description | +--------+ + + + + | 11/15/ | Orders Only | [facility] | Emil Oliva MD | | | 2014 | | NEPHROLOGY [place] | [address] | | | | | [address] | [address] [place], [place] | | | | | [address] [place], [place] | [address] | | | | | [address] | | | | | | [phone] | | | +--------+ + + + [...]
--- OUTSIDE RECORDS SUMMARY | ~2019-05-06 | XMS | Encounter Summary ---
Demographics + + + | Address | [address] | | | [place] [address] | + + + | Home Phone [...] Team Providers + +------+ + | Care Quality Control Lab Technician Name | Role | Phone | [...] | | | CONSULT | [place] | [place] [address] | | | | | | [place], [place] | Phone: | | | | | | [address] | [phone] | | | | | | Phone: | Fax: | | | | | | [phone] | [phone] | | | | | | Fax: | | | | | | | [phone] | | +--------+--------+ + + + + [...] | Dx); Kyphosis | | | | [place], | [place], [place] | deformity of spine | | | | [place] [address] | [address] | | | | | [phone] | | | +--------+---------+ + + + [...] oxygen at 2 L per minute at [facility] while she slept. Over last [...] A copy of the patient's echocardiogram from [facility] will be reviewed. CC: Yovani Santana documented in this encounter Plan of Treatment Not on filedocumented as of this encounter Results PFT PULMONARY FUNCTION TESTING ORDERS Full PFT ([place] w/BD, lung volumes, diffusion)?: Yes; Rest and [...] Melendez MD 03/27/2014 13:24 | | | [facility] | | + + + [...] 03/26/14Electronically signed by: Gary Melendez MD 03/27/2014 13:24[facility] | | [facility] | | | |No prior pulmonary function tests available for comparison. 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
--- OUTSIDE RECORDS SUMMARY | ~2019-05-06 | XMS | Encounter Summary ---
Demographics + + + | Address | [address] | | | [place] [address] | + + + | Home Phone | | + + + | Preferred Language | Unknown | + + + | Marital Status | Single | + + + | Mosque Affiliation | 1041 | + + + | Race | Unknown | + + + | Ethnic Group | Unknown | + + + Author + + + | Author | [facility] | | | and [place] | + + + | Organization | [facility] | | | [...] Team Providers + +------+ + | Care Bone Process Operator Name | Role | Phone | + +------+ + | Yovani Santana MD | PCP | | + +------+ + Encounter Details +--------+ + + + + | Date | Type | Department | Care Team | Description | +--------+ + + + + | 03/26/ | Hospital | [facility] | Melendez, Gary, | Hypoxemia; Kyphosis | | 2014 | Encounter | MED CTR PULMONARY | MD [address] | deformity of spine | | | | FUNCTION [address] | [place], [place] | | | | | [place], | [address] | | | | | [place] [address] | | | | | | [phone] | | | +--------+ + + + [...] Melendez MD 03/27/2014 13:24 | | | [facility] | | + + + + [...] 03/26/14Electronically signed by: Gary Melendez MD 03/27/2014 13:24[facility] | | [facility] | | | |No prior pulmonary function tests available for comparison. 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
--- OUTSIDE RECORDS SUMMARY | ~2019-05-06 | XMS | Clinical Summary ---
Demographics + + + | Address | [address] | | | [place] [address] | + + + | Home Phone | | + + + | Preferred Language | Unknown | + + + | Marital Status | | + + + | Anabaptist Affiliation | 1041 | + + + | Race | Unknown | + + + | Ethnic Group | Unknown | + + + Author + + + | Author | [facility] (Historical as of | | | 01-06-19) | + + + | Organization | [facility] (Historical as of | | | 01-06-19) [...] Team Providers + +------+ + | Care Straightedge Worker Name | Role | Phone | [...] | MA - GENERIC | MA-GEN | [id number] | Medica | | | | | [...] | | | | | | | [address] | + +--------+ +--------+ + +
--- OUTSIDE RECORDS SUMMARY | ~2019-05-06 | XMS | Clinical Summary ---
Demographics + + + | Address | [address] | | | [place] [address] | + + + | Home Phone | | + + + | Preferred Language | Unknown | + + + | Marital Status | | + + + | Restorationism Affiliation | 1041 | + + + | Race | Unknown | + + + | Ethnic Group | Unknown | + + + Author + + + | Author | [facility] (Historical as of | | | 01-06-19) | + + + | Organization | [facility] (Historical as of | | | 01-06-19) [...] Team Providers + +------+ + | Care Potash Flaker Name | Role | Phone | + [...] | MA - GENERIC | MA-GEN | [id number] | Med[place] | | | | | [...] | | | | | | | [address] | + +--------+ +--------+ + +
--- OUTSIDE RECORDS SUMMARY | ~2019-05-06 | XMS | Encounter Summary ---
Demographics + + + | Address | [address] | | | [place] [address] | + + + | Home Phone [...] + + + | Author | [facility] | | | and [place] | + + + | Organization | [facility] | | | [...] Team Providers + +------+ + | Care Radiochemical Technician Name | Role | Phone | + +------+ + | Rick Osorio DO | PCP | | + +------+ + Encounter Details +--------+ + + + + | Date | Type | Department | Care Team | Description | +--------+ + + + + | 06/04/ | Orders Only | [facility] | Emil Oliva MD | | | 2013 | | NEPHROLOGY [place] | [address] | | | | | [address] | [address] [place], [place] | | | | | [address] [place], [place] | [address] | | | | | [address] | | | | | | [phone] | | | +--------+ + + + [...]
--- OUTSIDE RECORDS SUMMARY | ~2019-05-06 | XMS | Clinical Summary ---
Demographics + + + | Address | [address] | | | [place] [address] | + + + | Home Phone | | + + + | Preferred Language | Unknown | + + + | Marital Status | Single | + + + | Christianity Affiliation | 1041 | + + + | Race | Unknown | + + + | Ethnic Group | Unknown | + + + Author + + + | Author | [facility] | | | and [place] | + + + | Organization | [facility] | | | [...] Providers + +------+ + | Care Manager Branch Name | Role | Phone | + [...] | [facility] | [facility] | [id number] | 05/23/19 | | | [facility] | [...] Person | Self | [birth year] | [address] | | Codie | al/Fam | | 1946 | [id number] | [address] | | | [place] | | | [address] (Home) | [place] | | | | | | | [address] | + +--------+ +--------+ + + Advance Directives + + + + + | Type | Date Recorded | Patient | Explanation | | | | Coverage Specialist | | + + + + + | Power of | | | | | [place] [employer] | | | | + + + + + | Advance | 05/10/2014 | | | | Directive | 12:33 PM | | | + + + + +
--- OUTSIDE RECORDS SUMMARY | ~2019-05-06 | XMS | Encounter Summary ---
Demographics + + + | Address | [address] | | | [place] [address] | + + + | Home Phone | | + + + | Preferred Language | Unknown | + + + | Marital Status | Single | + + + | Spiritism Affiliation | 1041 | + + + [...] Team Providers + +------+ + | Care Skidder Driver Name | Role | Phone | + +------+ + | Yovani Santana MD | PCP | | + +------+ + Encounter Details +--------+ + + + + | Date | Type | Department | Care Team | Description | +--------+ + + + + | 05/10/ | Hospital | [facility] | Gary Melendez, | Hypoxemia; | | 2014 | Encounter | MED CTR XRAY [address] | MD [address] | Restrictive lung | | | | [place] | [place], [place] | disease | | | | [place] [address] | [address] | | | | | [phone] | | | | | | | [...] + | MISCELLANEOUS LAB | | | [phone] | + +---------+ + + | MISCELANIOUS LAB | | | [phone] | + +---------+ + + documented in this encounter Visit Diagnoses + + | Diagnosis | + + | Hypoxemia | + + | Restrictive lung disease Other diseases of lung, not elsewhere classified | + + documented in this encounter"
--- OUTSIDE RECORDS SUMMARY | ~2019-05-06 | XMS | Encounter Summary ---
Demographics + + + | Address | [address] | | | [place] [address] | + + + | Home Phone [...] + +------+ + | Care Human Resources Operations Manager Name | Role | Phone | + +------+ + | Rick Osorio DO | PCP | | + +------+ + Encounter Details +--------+ + + + + | Date | Type | Department | Care Team | Description | +--------+ + + + + | 12/05/ | Orders Only | [facility] | Emil Oliva MD | | | 2013 | | NEPRHOLOGY [place] | [address] | | | | | [address] | [address] [place], [place] | | | | | [address] [place], [place] | [address] | | | | | [address] | | | | | | [phone] | | | +--------+ + + + [...]
--- OUTSIDE RECORDS SUMMARY | ~2019-05-06 | XMS | Encounter Summary ---
Demographics + + + | Address | [address] | | | [place] [address] | + + + | Home Phone | | + + + | Preferred Language | Unknown | + + + | Marital Status | Single | + + + | Samaritan Affiliation | 1041 | + + + | Race | Unknown | + + + | Ethnic Group | Unknown | + + + Author + + + | Author | [facility] | | | and [place] | + + + | Organization | [facility] | [...] Team Providers + +------+ + | Care Basketball Scout Name | Role | Phone | + +------+ + | Yovani Satnana MD | PCP | | + +------+ + Reason for Visit + + + | Reason | Comments | + + + | Follow-up | | + + + Encounter Details +--------+---------+ + + + | Date | Type | Department | Care Team | Description | +--------+---------+ + + + | 05/10/ | Office | [facility] | Gary Melendez, | Restrictive lung | | 2013 | Visit | PULMONARY [address] | MD [address] | disease (Primary | | | | [place], | [place], [place] | Dx); Hypoxemia; | | | | [place] [address] | [address] | Kyphosis deformity | | | | [phone] | | of spine | +--------+---------+ + [...] techniques, exercise, and stress management. In some [facility], a lung transplant is an option. Your healthcare team may include: A primary care provider,such as your family doctor. A private pilot,a specialist in lung problems. A pulmonary nurse specialistwho helps you understand and carry out your treatment. A pulmonary rehabilitation specialistwho helps you gain strength through exercise. A social workerwho helps with your daily needs, family life, and stress. 4901-[address] [employer]. [address] [place] [address]. All righ ts reserved. This information is [...]
--- OUTSIDE RECORDS SUMMARY | ~2019-05-06 | XMS | Encounter Summary ---
Demographics + + + | Address | [address] | | | [place] [address] | + + + | Home Phone [...] Team Providers + +------+ + | Care Food And Nutrition Teacher Name | Role | Phone | + +------+ + | Yovani Santana MD | PCP | | + +------+ + Encounter Details +--------+ + + + + | Date | Type | Department | Care Team | Description | +--------+ + + + + | 01/28/ | Hospital | [facility] | Jacob Smith, | | | 2014 - | Encounter | [facility] | MD Carmelo SANTAMARIA | | | | | CARE [address]LO[address] | [place] [address] | | | 02/03/ | | TIERA SANTAMARIA | [phone] | | | 2014 | | [place], [place] | | | | | | [address] | | | | | | [phone] | | | +--------+ + + + [...] Date of Service: 02/03/15 1029 Status: Signed Curtain Feller Blindstitch: Jose Maria Espinal MD (Physician) Related Notes: Original Note by Jose Maria Espinal MD (Physician) filed at 02/04/15 1345 [facility] Service: Hospitalist Physician Discharge Summary Patient [...] 2-4 lpm, Presented as a transfer from [facility] in [place] for fever of 101 and altered mental s tatus. She was discharged from [facility] on 01/09/15 for elevated troponin and [...] antibiotics. She was brought back in to [facility] for fever and confusion. UA and CXR reportedly negative there. SBP was 90s. She had formed stool there but en route here she did develop watery stool, tested C diff + here.".......per admitting MD/Dr. Smith . The patient was admitted to [facility] with a diagnosis of Clostridium difficile infection while she was being transferred from [facility] with fever and altered mental status. Th e patient has underlying immunosuppression secondary to a remote history of liver transplant on chronic immunosuppressive therapy with azathioprine and cyclosporin. Following her trans fletcher to [facility], she was started on oral vancomycin [...] stable for discharge to return to [facility] in [place] on Jan. ADDITIONAL ISSUES 1. Recurrent atelectasis. [...] days. I would urge managing physician at senior care facility where the patient resides in 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 We sent some of them to a specific pharmacy. Go t o these places to get your medications. [facility] - [place], [place] - [address] - lactobacillus granules [address] [place] [address] You may get the following medications from [...] 02/03/151608 Date of Service: 02/03/151608 Status: Signed Curtain Feller Blindstitch: Pedro Partida RN (Registered Nurse) 02/03/151602 Discharge Planning Evaluation Admitting Diagnosis Elevated temp, CKD, post liver transplant Readmission Yes-within 14 days Reason for readmission Fever, confusion, C.dif Last discharge disposition [facility] Needs met at last discharge Yes Picked up discharge Rx medications Yes Started prescribed DC meds Yes Understood discharge instructions Yes Assistance available Yes Concerns for meeting needs No Caregiver after Discharge Yes Mental Status Oriented Anticipated Disposition Facility Type nursing home facility [facility] Other (comment) ([place] in [place]) Disposition: Return to [facility] Transportation: Facility van to transport. All orders, [...] 02/03/15899 Date of Service: 02/02/151521 Status: Signed Curtain Feller Blindstitch: Jose Maria Espinal MD (Physician) Related Notes: Original Note by Jose Maria Espinal MD (Physician) filed at 02/02/15 1950 [facility] Service: Hospitalist Progress Note Pt: Cole Ernst AGE/SEX: 69 y.o. female : 1945 ROOM: [facility] History of Present Illness: " The patient is a 69 y.o. female with significant past medical history of liver transplant int he 90s on cyclosporine and imuran, chronic pain on methadone, CKD st 3, chronic home O2 of unclear etiology from 2-4 lp, Presented as a transfer from [facility] in [place] for fever of 101 and altered mental s tatus. She was discharged from [facility] on 01/09/15 for elevated troponin and [...] antibiotics. She was brought back in to [facility] for fever and confusion. UA and [...] sulfate. Case management establishing readiness of the [facility] [place] [facility] the patient in the next [...] contrast. Prior study for comparison: None FINDINGS: Interpreter And Translator 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 deg enerative changes of [...] LA/Ao: 1.57 D-E Excursion: 2.11 cm E-F [place]: 0.09 m/s EPSS: 0.48 cm HR: 77.41 [...] TV A Billy: 0.66 m/s TV Dec [place]: 4.36 m/s2 TV Dec Time: 184.41 ms TV E Billy: 0.80 m/s TV E/A Rat io: 1.21 Pediatric Surgeon: NEDRA Authenticated by: Gil Martines MD Report [...] Procedure: COLONOSCOPY; Surgeon: Juan Ramey MD; Location: [facility] ENDOSCOPY; Service: Gastroenterology; Laterality: N/A; PROBLEM [...] by Jose Maria Espinal MD at 02/01/15 9852 Author: Jose Maria Espinal MD Service: Hospitalist Author Type: Physician Filed: 02/02/15 1524 Date of Service: 02/01/151716 Status: Signed Curtain Feller Blindstitch: Jose Maria Espinal MD (Physician) Related Notes: Original Note by Jose Maria Espinal MD (Physician) filed at 02/02/15 1302 [facility] Service: Hospitalist Progress Note Pt: Cole Ernst AGE/SEX: 69 y.o. female : 1945 ROOM: [address] [place] [address] History of Present Illness: " The patient is a 69 y.o. female with significant past medical history of liver transplant int he 90s on cyclosporine and imuran, chronic pain on methadone, CKD st 3, chronic home O2 of unclear etiology from 2-4 lpm, Presented as a transfer from [facility] for fever of 101 and altered mental s tatus. She was discharged from [facility] on 01/09/15 for elevated troponin and [...] antibiotics. She was brought back in to [facility] for fever and confusion. UA and [...] establishing readiness of the faci lity in [place] to accept the patient in the next [...] contrast. Prior study for comparison: None FINDINGS: Interpreter And Translator 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 deg enerative changes of [...] LA/Ao: 1.57 D-E Excursion: 2.11 cm E-F [place]: 0.09 m/s EPSS: 0.48 cm HR: 77.41 [...] TV A Billy: 0.66 m/s TV Dec [place]: 4.36 m/s2 TV Dec Time: 184.41 ms TV E Billy: 0.80 m/s TV E/A Rat io: 1.21 Pediatric Surgeon: NEDRA Authenticated by: Gil Martines MD Report [...] Procedure: COLONOSCOPY; Surgeon: Juan Ramey MD; Location: [facility] ENDOSCOPY; Service: Gastroenterology; Laterality: N/A; PROBLEM [...] Currently with normal liver function tests. 3. Sgjtv-qk-apegpeu liver disease, stage III. Creatinine level has [...] 01/31/152124 Date of Service: 01/31/151513 Status: Signed Curtain Feller Blindstitch: Jose Maria Espinal MD (Physician) Related Notes: Original Note by Jose Maria Espinal MD (Physician) filed at 01/31/15 1523 [facility] Service: Hospitalist Progress Note Pt: Cole Ernst AGE/SEX: 69 y.o. female : 1945 ROOM: [address] [place] [address] History of Present Illness: " The patient is a 69 y.o. female with significant past medical history of liver transplant int he 90s on cyclosporine and imuran, chronic pain on methadone, CKD st 3, chronic home O2 of unclear etiology from 2-4 lpm, Presented as a transfer from [facility] in [place] for fever of 101 and altered mental s tatus. She was discharged from [facility] on 01/09/15 for elevated troponin and [...] antibiotics. She was brought back in to [facility] for fever and confusion. UA and [...] contrast. Prior study for comparison: None FINDINGS: Interpreter And Translator 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 deg enerative changes of [...] LA/Ao: 1.57 D-E Excursion: 2.11 cm E-F [place]: 0.09 m/s EPSS: 0.48 cm HR: 77.41 [...] TV A Billy: 0.66 m/s TV Dec [place]: 4.36 m/s2 TV Dec Time: 184.41 ms TV E Billy: 0.80 m/s TV E/A Rat io: 1.21 Pediatric Surgeon: NEDRA Authenticated by: Gil Martines MD Report [...] Procedure: COLONOSCOPY; Surgeon: Juan Ramey MD; Location: [facility] END[facility]COPY; Service: Gastroenterology; Laterality: N/A; PROBLEM [...] 1313 Date of Service: 01/31/151312 Status: Signed Curtain Feller Blindstitch: Catina Moon () Attempted visit. Pt sitting in chair sleeping. No family present. Chaplain Catina Moon onver alessandro Transaction, Provider Unknown - 01/31/2015 11:35 AM PDT Therapy Progress Note by Mahi Yanes PTA at 01/31/15 1135 Author: Mahi Yanes PTA Service: (none) Author Type: Senior Product Development Manager Filed: 01/31/15 1410 Date of Service: 01/31/151134 Status: Signed Curtain Feller Blindstitch: Mahi Yanes PTA (Senior Product Development Manager) 01/31/15 1135 PT Last Visit PT [...] PDT Case Management by Gregg Keene MS, PERSONAL LINES SALES EXECUTIVE at 01/31/15 1007 Author: Gregg Keene, MS, PERSONAL LINES SALES EXECUTIVE Service: (none) Author Type: Apprentice Lineman Third Step Filed: 01/31/15 1546 Date of Service: 01/31/15 1007 Status: Addendum Curtain Feller Blindstitch: Gregg Keene , PERSONAL LINES SALES EXECUTIVE (Apprentice Lineman Third Step) Related Notes: Original Note by Gregg Yecenia MS, PERSONAL LINES SALES EXECUTIVE (Apprentice Lineman Third Step) filed at 01/31/15 1007 Discharge planning - CM faxed updated clinical to Gi at [facility]. Discharge form s on front of chart for MD signature. CM notified Gi of anticipated d/c this weekend. onver alessandro Transaction, Provider Unknown - 01/30/2015 5:05 PM PDT Therapy Progress Note by Gail Vernon PT at 01/30/15 1705 Author: Gail Vernon PT Service: (none) Author Type: Physical Therapist Filed: 01/30/15 9984 Date of Service: 01/30/15 1705 Status: Signed Curtain Feller Blindstitch: Gail Vernon PT (Physical Therapist) 01/30/15 170 [...] Date of Service: 01/30/15 1414 Status: Signed Curtain Feller Blindstitch: Jose Maria Espinal MD (Physician) Related Notes: Original Note by Jose Maria Espinal MD (Physician) filed at 01/30/15 9233 [facility] Service: Hospitalist Progress Note Pt: Cole [...] 2-4 lpm, Presented as a transfer from [facility] in [place] for fever of 101 and altered mental s tatus. She was discharged from [facility] on 01/09/15 for elevated troponin and [...] antibiotics. She was brought back in to [facility] for fever and confusion. UA and [...] contrast. Prior study for comparison: None FINDINGS: Interpreter And Translator 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 deg enerative changes of [...] LA/Ao: 1.57 D-E Excursion: 2.11 cm E-F [place]: 0.09 m/s EPSS: 0.48 cm HR: 77.41 [...] TV A Billy: 0.66 m/s TV Dec [place]: 4.36 m/s2 TV Dec Time: 184.41 ms TV E Billy: 0.80 m/s TV E/A Rat io: 1.21 Pediatric Surgeon: NEDRA Authenticated by: Gil Martines MD Report [...] Procedure: COLONOSCOPY; Surgeon: Juan Ramey MD; Location: [facility] END[facility]COPY; Service: Gastroenterology; Laterality: N/A; PROBLEM [...] Patient's live r functions remain normal. 3. Bnsse-yu-cqohlrn kidney disease stage III. Creatinine level has [...] by Jose Maria Espinal MD at 01/29/15 782 Author: Jose Maria Espinal MD Service: Hospitalist Author Type: Physician Filed: 01/30/15 0957 Date of Service: 01/29/151650 Status: Signed Curtain Feller Blindstitch: Jose Maria Espinal MD (Physician) Related Notes: Original Note by Jose Maria Espinal MD (Physician) filed at 01/29/152024 [facility] Service: Hospitalist Progress Note Pt: Cole Ernst AGE/SEX: 69 y.o. female : 1945 ROOM: [address] [place] [address] History of Present Illness: " The patient is a 69 y.o. female with significant past medical history of liver transplant int he 90s on cyclosporine and imuran, chronic pain on methadone, CKD st 3, chronic home O2 of unclear etiology from 2-4 lpm, Presented as a transfer from [facility] in [place] for fever of 101 and altered mental s tatus. She was discharged from [facility] on 01/09/15 for elevated troponin and [...] antibiotics. She was brought back in to [facility] for fever and confusion. UA and [...] contrast. Prior study for comparison: None FINDINGS: Interpreter And Translator 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 deg enerative changes of [...] LA/Ao: 1.57 D-E Excursion: 2.11 cm E-F [place]: 0.09 m/s EPSS: 0.48 cm HR: 77.41 [...] TV A Billy: 0.66 m/s TV Dec [place]: 4.36 m/s2 TV Dec Time: 184.41 ms TV E Billy: 0.80 m/s TV E/A Rat io: 1.21 Pediatric Surgeon: NEDRA Authenticated by: Gil Martines MD Report [...] Procedure: COLONOSCOPY; Surgeon: Juan Ramey MD; Location: [facility] END[facility]; Service: Gastroenterology; Laterality: N/A; PROBLEM [...] Date of Service: 01/29/15 1525 Status: Signed Curtain Feller Blindstitch: Pedro Partida RN (Registered Nurse) 01/29/15 1521 Discharge Planning Evaluation Admitting Diagnosis Intestinal infection C.dif. Readmission Yes-within 14 days Reason for readmission Intestinal infection C.dif Last discharge disposition [facility] Needs met at last discharge Yes Picked up discharge Rx medications Not applicable Followed up with primary or specialty provider Yes Understood discharge instructions Yes Assistance available Yes Living Arrangements Alone Support Systems Friends/neighbors Type of Residence Private residence House type Apartment Independent with ADL's Yes Independent with Mobility Yes Caregiver after Discharge Yes Mental Status Oriented Anticipated Disposition Facility Type nursing home facility [facility] Other (comment) ([place] in [place]) Met with: patient and discussed discharge planning, Pt is a 69 y.o., female who was discharged from [facility] 2 wee ks ago to [facility]. Her sister, Renée Tipton is emergency contact, . Patient's PCP is: KI DE JESUS Patient's insurance: Medicare Coverage concerns: Medication coverage/concerns: Community resources utilized / needed: Assistance in transportation: Identification of any specific education / training: Barriers to Discharge / Alternative housing needed: Anticipated DCP: Return to [facility] PEDRO PARTIDA RN onver alessandro Nicole Provider Unknown - 01/29/2015 8:55 AM PDT Therapy Progress Note by Barbara Edmond PT at 01/29/15 0855 Author: Barbara Edmond PT Service: (none) Author Type: Physical Therapist Filed: 01/29/1533 Date of Service: 01/29/15854 Status: Signed Curtain Feller Blindstitch: Barbara Edmond PT (Physical Therapist) 01/29/15 08 [...] to SNF after current hospital stay. 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 Reports a few falls at facility ov er last week, otherwise denies falls over last 6mos. Was getting therapies at facility. Prior Function Level of [place] Modified independent with ADLs;Modified independent with functional [...] Barriers to Discharge Physical Deficits Impacting Functional [place];Self-care Deficit s Impacting Functional [place];Equipment Needs (see comment);Pain Recommendation Comments Needs return [...] Barriers to Discharge Physical Deficits Impacting Functional [place];Self-care Deficit s Impacting Functional [place];Equipment Needs (see comment);Pain Recommendation Comments Needs return [...] 01/29/15831 Date of Service: 01/29/15830 Status: Signed Curtain Feller Blindstitch: Malick Ramos RN (Registered Nurse) Infection Prevention Note: Patient stool is positive for C. Diff. Contact Enteric Precautions are required until furt her notice. Thank you. Malick Ramos RN, BA, Tester Rocket Engine onver alessandro Transaction, Provider Unknown - 01/28/2015 3:23 PM PDT Progress Notes by Jimena Duarte RPH at 01/28/151522 Author: Jimena Duarte RPH Service: (none) Author Type: Pharmacist Filed: 01/28/15 152 Date of Service: 01/28/151522 Status: Signed Curtain Feller Blindstitch: Jimena Duarte RPH (Pharmacist) Zosyn Extended Infusion Initial Consult-Per Dr. Jacob Ernst 69 y.o. female CrCl cannot be calculated (Unknown ideal weight.). NEUTROPHILS ABS Date Value Ref Range Status 01/18/2015 3.26 1.90 - 7.40 K/uL Final Comment: Testing performed at [facility], [address] [place] [address] CREATININE Date Value Ref Range Status 01/19/2015 0.96 0.50 - 1.00 mg/dL Final Comment: Testing performed at [facility], [address] [place] [address] Zosyn extended Infusion loading and maintenance dose guidelines Loading Dose 4.5 g IV Over 30 minutes CrCl >20 ml/min 3.375 g IV Q 8 hours Over 4 hours CrCl 10-20 ml/min 3.375 g IV Q 12 hours Over 4 hours CrCl <10, HD, PD Follow [facility] Dosage Adjustments in Renal Dysfunction Protocol [...] Jimena Duarte RPH at 01/28/15 1516 Author: iJmena Duarte RPH Service: (none) Author Type: Pharmacist Filed: 01/28/151515 Date of Service: 01/28/151515 Status: Signed Curtain Feller Blindstitch: Jimena Duarte RPH (Pharmacist) Renal Dosing Monitoring: [...] | | | | | [place] [address] | | | | + + + + + + | RED CELL | 2.72 (L)Comment: Testing | 3.70 - 5.10 | EXTERNAL | | | COUNT | performed at [facility], [address] | M/uL | LAB | | | | [address], | | | | | | [place] [address] | | | | + + + + + + | Hgb | 9.6 (L)Comment: Testing | 11.3 - 15.5 | EXTERNAL | | | | performed at [facility], [address] | g/dL | LAB | | | | [address], | | | | | | [place] [address] | | | | + + + + + + | Hematocrit, | 28.8 (L)Comment: Testing | 34.0 - 46.0 % | EXTERNAL | | | POC | performed at [facility], [address] | | LAB | | | | [address] [place], | | | | | | [place] [address] | | | | + + + + + + | MCV | 106.0 (H)Comment: | 80.0 - 100.0 fl | EXTERNAL | | | | Testing performed at | | LAB | | | | [facility], [address] | | | | | | [place] | | | | | | [address] | | | | + + + + + + | MCH | 35.2 (H)Comment: Testing | 27.0 - 34.0 pg | EXTERNAL | | | | performed at [facility], [address] | | LAB | | | | [address], | | | | | | [place] [address] | | | | + + + + + + | MCHC | 33.2Comment: Testing | 32.0 - 35.5 | EXTERNAL | | | | performed at [facility], [address] | g/dL | LAB | | | | [address], | | | | | | [place] [address] | | | | + + + + + + | RDW-CV | 53.4 (H)Comment: Testing | 37 - 53 fl | EXTERNAL | | | | performed at [facility], [address] | | LAB | | | | [address], | | | | | | [place] [address] | | | | + + + + + + | Platelet | 216Comment: Testing | 150 - 400 K/uL | EXTERNAL | | | Count | performed at [facility], [address] | | LAB | | | Plasma | [address], | | | | | | [place] [address] | | | | + + + + + + | MPV | 10.5Comment: Testing | fl | EXTERNAL | | | | performed at [facility], [address] | | LAB | | | | [address], | | | | | | [place], [place] [address] | | | | + + + + + + | Differentia | MANUALComment: Testing | | EXTERNAL | | | l Type | performed at [facility], [address] | | LAB | | | | [address], | | | | | | [place], [place] [address] | | | | + + + + + + | Segmented | 35Comment: Testing | % | EXTERNAL | | | Neutrophils | performed at [facility], [address] | | LAB | | | Manual | [address], | | | | | | [place] [address] | | | | + + + + + + | % Bands | 1Comment: Testing | % | EXTERNAL | | | | performed at [facility], [address] | | LAB | | | | [address], | | | | | | [place] [address] | | | | + + + + + + | Lymphocytes | 44Comment: Testing | % | EXTERNAL | | | Manual | performed at [facility], [address] | | LAB | | | | [address], | | | | | | [place] [address] | | | | + + + + + + | Monocytes | 12Comment: Testing | % | EXTERNAL | | | Manual | performed at [facility], [address] | | LAB | | | | [address], | | | | | | [place] [address] | | | | + + + + + + | Eosinophils | 8Comment: Testing | % | EXTERNAL | | | Manual | performed at [facility], [address] | | LAB | | | | [address], | | | | | | [place] [address] | | | | + + + + + + | Absolute | 3.08Comment: Testing | 1.90 - 7.40 | EXTERNAL | | | Neutrophils | performed at [facility], [address] | K/uL | LAB | | | | [address], | | | | | | [place] [address] | | | | + + + + + + | Bands | 0.09Comment: Testing | 0.00 - 0.20 | EXTERNAL | | | Manual | performed at [facility], [address] | K/uL | LAB | | | | [address], | | | | | | [place] [address] | | | | + + + + + + | Absolute | 3.88Comment: Testing | 1.00 - 3.90 | EXTERNAL | | | Lymphocytes | performed at [facility], [address] | K/uL | LAB | | | | [address], | | | | | | [place] [address] | | | | + + + + + + | Absolute | 1.06 (H)Comment: Testing | 0.00 - 0.80 | EXTERNAL | | | Monocytes | performed at [facility], [address] | K/uL | LAB | | | | [address], | | | | | | [place] [address] | | | | + + + + + + | Absolute | 0.70 (H)Comment: Testing | 0.00 - 0.50 | EXTERNAL | | | Eosinophils | performed at [facility], [address] | K/uL | LAB | | | | [address], | | | | | | [place] [address] | | | | + + + + + + | RBC | NORMAL PLT MORPHComment: | | EXTERNAL | | | Morphology | NORMAL RBC MORPHTesting | | LAB | | | | performed at [facility], [address] | | | | | | [address], | | | | | | [place] [address] | | | | + + + [...] | | | | | [place] [address] | | | | + + + [...] | | | | | [place] [address] | | | | + + + [...] | | | | | [place] [address] | | | | + + + + + + | K | 4.0Comment: Testing | 3.5 - 4.9 | EXTERNAL | | | | performed at [facility], [address] | mmol/L | LAB | | | | [address], | | | | | | [place] [address] | | | | + + + + + + | Cl | 102Comment: Testing | 99 - 109 mmol/L | EXTERNAL | | | | performed at [facility], [address] | | LAB | | | | [address], | | | | | | [place] [address] | | | | + + + + + + | CO2 | 33 (H)Comment: Testing | 23 - 32 mmol/L | EXTERNAL | | | | performed at [facility], [address] | | LAB | | | | [address], | | | | | | [place] [address] | | | | + + + + + + | Anion Gap | 5Comment: Testing | 5 - 20 mmol/L | EXTERNAL | | | | performed at [facility], [address] | | LAB | | | | [address], | | | | | | [place] [address] | | | | + + + + + + | Glucose, | 105 (H)Comment: Testing | 65 - 99 mg/dL | EXTERNAL | | | Fasting | performed at [facility], [address] | | LAB | | | | [address], | | | | | | [place] [address] | | | | + + + + + + | BUN | 9Comment: Testing | 8 - 25 mg/dL | EXTERNAL | | | | performed at [facility], [address] | | LAB | | | | [address], | | | | | | [place] [address] | | | | + + + + + + | Creatinine | 0.82Comment: Testing | 0.50 - 1.00 | EXTERNAL | | | | performed at [facility], [address] | mg/dL | LAB | | | | [address], | | | | | | [place] [address] | | | | + + + + + + | BUN/Creatin | 11Comment: Testing | | EXTERNAL | | | ine Ratio | performed at [facility], [address] | | LAB | | | | [address], | | | | | | [place] [address] | | | | + + + + + + | Calcium | 8.5Comment: Testing | 8.5 - 10.5 | EXTERNAL | | | | performed at [facility], [address] | mg/dL | LAB | | | | [address], | | | | | | [place] [address] | | | | + + + + + + | Protein, | 6.3Comment: Testing | 6.3 - 8.2 g/dL | EXTERNAL | | | Total | performed at [facility], [address] | | LAB | | | | [address], | | | | | | [place] [address] | | | | + + + + + + | Albumin | 2.8 (L)Comment: Testing | 3.3 - 4.8 g/dL | EXTERNAL | | | | performed at [facility], [address] | | LAB | | | | [address], | | | | | | [place] [address] | | | | + + + + + + | Globulin | 3.5Comment: Testing | 1.3 - 4.9 g/dL | EXTERNAL | | | | performed at [facility], [address] | | LAB | | | | [address], | | | | | | [place] [address] | | | | + + + + + + | A/G Ratio | 0.8 (L)Comment: Testing | 1.0 - 2.4 | EXTERNAL | | | | performed at [facility], [address] | | LAB | | | | [address], | | | | | | [place] [address] | | | | + + + + + + | Bilirubin | 0.5Comment: Testing | 0.1 - 1.5 mg/dL | EXTERNAL | | | Total | performed at [facility], [address] | | LAB | | | | [address], | | | | | | [place] [address] | | | | + + + + + + | ALP, | 102Comment: Testing | 35 - 115 U/L | EXTERNAL | | | External | performed at [facility], [address] | | LAB | | | | [address], | | | | | | [place] [address] | | | | + + + + + + | AST | 53 (H)Comment: Testing | 10 - 45 U/L | EXTERNAL | | | | performed at [facility], [address] | | LAB | | | | [address], | | | | | | [place] [address] | | | | + + + [...] | | | | | | [address] [facility], | | | | | | [place] [address] | | | | + + + [...] EXTERNAL | | | | performed at [facility];888 | mmol/L | LAB | | | | [address];[place], [place] | | | | | | [address] | | | | + + + [...] EXTERNAL | | | | performed at [facility];[address] | | LAB | | | | [address];[place] | | | | | | [address] | | | | + + + [...] | | | | | [place] [address] | | | | + + + + + + | RED CELL | 2.78 (L)Comment: Testing | 3.70 - 5.10 | EXTERNAL | | | COUNT | performed at [facility], [address] | M/uL | LAB | | | | [address], | | | | | | [place] [address] | | | | + + + + + + | Hgb | 9.7 (L)Comment: Testing | 11.3 - 15.5 | EXTERNAL | | | | performed at [facility], [address] | g/dL | LAB | | | | [address], | | | | | | [place] [address] | | | | + + + + + + | Hematocrit, | 29.6 (L)Comment: Testing | 34.0 - 46.0 % | EXTERNAL | | | POC | performed at [facility], [address] | | LAB | | | | [address], | | | | | | [place] [address] | | | | + + + + + + | MCV | 106.3 (H)Comment: | 80.0 - 100.0 fl | EXTERNAL | | | | Testing performed at | | LAB | | | | [facility], [address] [facility] | | | | | | [place] | | | | | | [address] | | | | + + + + + + | MCH | 34.8 (H)Comment: Testing | 27.0 - 34.0 pg | EXTERNAL | | | | performed at [facility], [address] | | LAB | | | | [address], | | | | | | [place] [address] | | | | + + + + + + | MCHC | 32.8Comment: Testing | 32.0 - 35.5 | EXTERNAL | | | | performed at [facility], [address] | g/dL | LAB | | | | [address], | | | | | | [place] [address] | | | | + + + + + + | RDW-CV | 53.8 (H)Comment: Testing | 37 - 53 fl | EXTERNAL | | | | performed at [facility], [address] | | LAB | | | | [address], | | | | | | [place] [address] | | | | + + + + + + | Platelet | 181Comment: Testing | 150 - 400 K/uL | EXTERNAL | | | Count | performed at [facility], [address] | | LAB | | | Plasma | [address], | | | | | | [place] [address] | | | | + + + + + + | MPV | 11.3Comment: Testing | fl | EXTERNAL | | | | performed at [facility], [address] | | LAB | | | | [address], | | | | | | [place] [address] | | | | + + + + + + | Differentia | MANUALComment: Testing | | EXTERNAL | | | l Type | performed at [facility], [address] | | LAB | | | | [address], | | | | | | [place] [address] | | | | + + + + + + | Segmented | 45Comment: Testing | % | EXTERNAL | | | Neutrophils | performed at [facility], [address] | | LAB | | | Manual | [address], | | | | | | [place] [address] | | | | + + + + + + | % Bands | 1Comment: Testing | % | EXTERNAL | | | | performed at [facility], [address] | | LAB | | | | [address], | | | | | | [place] [address] | | | | + + + + + + | Lymphocytes | 35Comment: Testing | % | EXTERNAL | | | Manual | performed at [facility], [address] | | LAB | | | | [address], | | | | | | [place], [place] [address] | | | | + + + + + + | Monocytes | 11Comment: Testing | % | EXTERNAL | | | Manual | performed at [facility], [address] | | LAB | | | | [address], | | | | | | [place] [address] | | | | + + + [...] | | | | | [place] [address] | | | | + + + + + + | Bands | 0.09Comment: Testing | 0.00 - 0.20 | EXTERNAL | | | Manual | performed at [facility], [address] | K/uL | LAB | | | | [address], | | | | | | [place] [address] | | | | + + + + + + | Absolute | 3.01Comment: Testing | 1.00 - 3.90 | EXTERNAL | | | Lymphocytes | performed at [facility], [address] | K/uL | LAB | | | | [address], | | | | | | [place] [address] | | | | + + + + + + | Absolute | 0.95 (H)Comment: Testing | 0.00 - 0.80 | EXTERNAL | | | Monocytes | performed at [facility], [address] | K/uL | LAB | | | | [address], | | | | | | [place] [address] | | | | + + + + + + | Absolute | 0.69 (H)Comment: Testing | 0.00 - 0.50 | EXTERNAL | | | Eosinophils | performed at [facility], [address] | K/uL | LAB | | | | [address], | | | | | | [place] [address] | | | | + + + + + + | RBC | 2+Comment: MACRONORMAL | | EXTERNAL | | | Morphology | PLT MORPHTesting | | LAB | | | | performed at [facility], [address] | | | | | | [address], | | | | | | [place] [address] | | | | | | | [...] | | | | | [place] [address] | | | | + + + [...] [address], | | | | | | [place] [address] | | | | + + + [...] | | | | | [place] [address] | | | | + + + + + + | K | 3.2 (L)Comment: Testing | 3.5 - 4.9 | EXTERNAL | | | | performed at [facility], [address] | mmol/L | LAB | | | | [address], | | | | | | [place] [address] | | | | + + + + + + | Cl | 103Comment: Testing | 99 - 109 mmol/L | EXTERNAL | | | | performed at [facility], [address] | | LATA | | | | [address], | | | | | | [place] [address] | | | | + + + + + + | CO2 | 31Comment: Testing | 23 - 32 mmol/L | EXTERNAL | | | | performed at [facility], [address] | | LAB | | | | [address], | | | | | | [place] [address] | | | | + + + + + + | Anion Gap | 7Comment: Testing | 5 - 20 mmol/L | EXTERNAL | | | | performed at [facility], [address] | | LAB | | | | [address], | | | | | | [place] [address] | | | | + + + + + + | Glucose, | 104 (H)Comment: Testing | 65 - 99 mg/dL | EXTERNAL | | | Fasting | performed at [facility], [address] | | LAB | | | | [address], | | | | | | [place] [address] | | | | + + + + + + | BUN | 10Comment: Testing | 8 - 25 mg/dL | EXTERNAL | | | | performed at [facility], [address] | | LAB | | | | [address], | | | | | | [place] [address] | | | | + + + + + + | Creatinine | 0.83Comment: Testing | 0.50 - 1.00 | EXTERNAL | | | | performed at [facility], [address] | mg/dL | LAB | | | [address], | | | | | | [place] [address] | | | | + + + + + + | BUN/Creatin | 12Comment: Testing | | EXTERNAL | | | ine Ratio | performed at [facility], [address] | | LAB | | | | [address], | | | | | | [place] [address] | | | | + + + + + + | Calcium | 8.2 (L)Comment: Testing | 8.5 - 10.5 | EXTERNAL | | | | performed at [facility], [address] | mg/dL | LAB | | | | [address], | | | | | | [place] [address] | | | | + + + + + + | Protein, | 6.2 (L)Comment: Testing | 6.3 - 8.2 g/dL | EXTERNAL | | | Total | performed at [facility], [address] | | LAB | | | | [address], | | | | | | [place] [address] | | | | + + + + + + | Albumin | 2.7 (L)Comment: Testing | 3.3 - 4.8 g/dL | EXTERNAL | | | | performed at [facility], [address] | | LAB | | | | [address], | | | | | | [place] [address] | | | | + + + + + + | Globulin | 3.5Comment: Testing | 1.3 - 4.9 g/dL | EXTERNAL | | | | performed at [facility], [address] | | LAB | | | | [address], | | | | | | [place] [address] | | | | + + + + + + | A/G Ratio | 0.8 (L)Comment: Testing | 1.0 - 2.4 | EXTERNAL | | | | performed at [facility], [address] | | LAB | | | | [address], | | | | | | [place] [address] | | | | + + + + + + | Bilirubin | 0.5Comment: Testing | 0.1 - 1.5 mg/dL | EXTERNAL | | | Total | performed at [facility], [address] | | LAB | | | | [address], | | | | | | [place] [address] | | | | + + + + + + | ALP, | 98Comment: Testing | 35 - 115 U/L | EXTERNAL | | | External | performed at [facility], [address] | | LAB | | | | [address], | | | | | | [place] [address] | | | | + + + + + + | AST | 35Comment: Testing | 10 - 45 U/L | EXTERNAL | | | | performed at [facility], [address] | | LAB | | | | [address], | | | | | | [place] [address] | | | | + + + + + + | ALT | 15Comment: Testing | 10 - 65 U/L | EXTERNAL | | | | performed at [facility], [address] | | LAB | | | | [address], | | | | | | [place] [address] | | | | + + + [...] [address], | | | | | | [place] [address] | | | | + + + [...] | | | | | [place] [address] | | | | + + + [...] | | | B-12 | performed at [facility], [address] | pg/mL | LAB | | | | [address], | | | | | | [place] [address] | | | | + + + [...] | | | | | [place] [address] | | | | + + + + + + | RED CELL | 2.72 (L)Comment: Testing | 3.70 - 5.10 | EXTERNAL | | | COUNT | performed at [facility], [address] | M/uL | LAB | | | | [address], | | | | | | [place] [address] | | | | + + + + + + | Hgb | 9.4 (L)Comment: Testing | 11.3 - 15.5 | EXTERNAL | | | | performed at [facility], [address] | g/dL | LAB | | | | [address], | | | | | | [place] [address] | | | | + + + + + + | Hematocrit, | 29.1 (L)Comment: Testing | 34.0 - 46.0 % | EXTERNAL | | | POC | performed at [facility], [address] | | LAB | | | | [address], | | | | | | [place] [address] | | | | + + + + + + | MCV | 107.3 (H)Comment: | 80.0 - 100.0 fl | EXTERNAL | | | | Testing performed at | | LAB | | | | [facility], [address] [facility] | | | | | | [place] | | | | | | [address] | | | | + + + + + + | MCH | 34.6 (H)Comment: Testing | 27.0 - 34.0 pg | EXTERNAL | | | | performed at [facility], [address] | | LAB | | | | [address], | | | | | | [place] [address] | | | | + + + + + + | MCHC | 32.2Comment: Testing | 32.0 - 35.5 | EXTERNAL | | | | performed at [facility], [address] | g/dL | LAB | | | | [address], | | | | | | [place] [address] | | | | + + + + + + | RDW-CV | 57.3 (H)Comment: Testing | 37 - 53 fl | EXTERNAL | | | | performed at [facility], [address] | | LAB | | | | [address], | | | | | | [place] [address] | | | | + + + + + + | Platelet | 174Comment: Testing | 150 - 400 K/uL | EXTERNAL | | | Count | performed at [facility], [address] | | LAB | | | Plasma | [address], | | | | | | [place] [address] | | | | + + + + + + | MPV | 10.9Comment: Testing | fl | EXTERNAL | | | | performed at [facility], [address] | | LAB | | | | [address], | | | | | | [place] [address] | | | | + + + + + + | Differentia | MANUALComment: Testing | | EXTERNAL | | | l Type | performed at [facility], [address] | | LAB | | | | [address], | | | | | | [place], [place] [address] | | | | + + + + + + | Segmented | 45Comment: Testing | % | EXTERNAL | | | Neutrophils | performed at [facility], [address] | | LAB | | | Manual | [address], | | | | | | [place], [place] [address] | | | | + + + + + + | % Bands | 1Comment: Testing | % | EXTERNAL | | | | performed at [facility], [address] | | LAB | | | | [address], | | | | | | [place], [place] [address] | | | | + + + + + + | Lymphocytes | 34Comment: Testing | % | EXTERNAL | | | Manual | performed at [facility], [address] | | LAB | | | | [address], | | | | | | [place] [address] | | | | + + + + + + | Monocytes | 11Comment: Testing | % | EXTERNAL | | | Manual | performed at [facility], [address] | | LAB | | | | [address], | | | | | | [place] [address] | | | | + + + + + + | Eosinophils | 9Comment: Testing | % | EXTERNAL | | | Manual | performed at [facility], [address] | | LAB | | | | [address], | | | | | | [place] [address] | | | | + + + + + + | Absolute | 3.77Comment: Testing | 1.90 - 7.40 | EXTERNAL | | | Neutrophils | performed at [facility], [address] | K/uL | LAB | | | | [address], | | | | | | [place] [address] | | | | + + + + + + | Bands | 0.08Comment: Testing | 0.00 - 0.20 | EXTERNAL | | | Manual | performed at [facility], [address] | K/uL | LAB | | | | [address], | | | | | | [place] [address] | | | | + + + + + + | Absolute | 2.84Comment: Testing | 1.00 - 3.90 | EXTERNAL | | | Lymphocytes | performed at [facility], [address] | K/uL | LAB | | | | [address], | | | | | | [place] [address] | | | | + + + + + + | Absolute | 0.92 (H)Comment: Testing | 0.00 - 0.80 | EXTERNAL | | | Monocytes | performed at [facility], [address] | K/uL | LAB | | | | [address], | | | | | | [place] [address] | | | | + + + + + + | Absolute | 0.75 (H)Comment: Testing | 0.00 - 0.50 | EXTERNAL | | | Eosinophils | performed at [facility], [address] | K/uL | LAB | | | | [address], | | | | | | [place] [address] | | | | + + + + + + | RBC | NORMAL PLT MORPHComment: | | EXTERNAL | | | Morphology | NORMAL RBC MORPHTesting | | LAB | | | | performed at [facility], [address] | | | | | | [address], | | | | | | [place] [address] | | | | + + + [...] | | | | | [place] [address] | | | | + + + [...] | | | | | [place] [address] | | | | + + + [...] | | | | | [place] [address] | | | | + + + + + + | K | 3.8Comment: Testing | 3.5 - 4.9 | EXTERNAL | | | | performed at [facility], [address] | mmol/L | LAB | | | | [address], | | | | | | [place] [address] | | | | + + + + + + | Cl | 111 (H)Comment: Testing | 99 - 109 mmol/L | EXTERNAL | | | | performed at [facility], [address] | | LAB | | | | [address], | | | | | | [place] [address] | | | | + + + + + + | CO2 | 25Comment: Testing | 23 - 32 mmol/L | EXTERNAL | | | | performed at [facility], [address] | | LAB | | | | [address], | | | | | | [place] [address] | | | | + + + + + + | Anion Gap | 5Comment: Testing | 5 - 20 mmol/L | EXTERNAL | | | | performed at [facility], [address] | | LAB | | | | [address], | | | | | | [place] [address] | | | | + + + + + + | Glucose, | 112 (H)Comment: Testing | 65 - 99 mg/dL | EXTERNAL | | | Fasting | performed at [facility], [address] | | LAB | | | | [address], | | | | | | [place] [address] | | | | + + + + + + | BUN | 13Comment: Testing | 8 - 25 mg/dL | EXTERNAL | | | | performed at [facility], [address] | | LAB | | | | [address], | | | | | | [place] [address] | | | | + + + + + + | Creatinine | 0.74Comment: Testing | 0.50 - 1.00 | EXTERNAL | | | | performed at [facility], [address] | mg/dL | LAB | | | | [address], | | | | | | [place] [address] | | | | + + + + + + | BUN/Creatin | 18Comment: Testing | | EXTERNAL | | | ine Ratio | performed at [facility], [address] | | LAB | | | | [address], | | | | | | [place] [address] | | | | + + + + + + | Calcium | 8.0 (L)Comment: Testing | 8.5 - 10.5 | EXTERNAL | | | | performed at [facility], [address] | mg/dL | LAB | | | | [address], | | | | | | [place] [address] | | | | + + + + + + | Protein, | 5.9 (L)Comment: Testing | 6.3 - 8.2 g/dL | EXTERNAL | | | Total | performed at [facility], [address] | | LAB | | | | [address], | | | | | | [place] [address] | | | | + + + + + + | Albumin | 2.6 (L)Comment: Testing | 3.3 - 4.8 g/dL | EXTERNAL | | | | performed at [facility], [address] | | LAB | | | [address], | | | | | | [place] [address] | | | | + + + + + + | Globulin | 3.3Comment: Testing | 1.3 - 4.9 g/dL | EXTERNAL | | | | performed at [facility], [address] | | LAB | | | | [address], | | | | | | [place] [address] | | | | + + + + + + | A/G Ratio | 0.8 (L)Comment: Testing | 1.0 - 2.4 | EXTERNAL | | | | performed at [facility], [address] | | LAB | | | | [address], | | | | | | [place] [address] | | | | + + + + + + | Bilirubin | 0.4Comment: Testing | 0.1 - 1.5 mg/dL | EXTERNAL | | | Total | performed at [facility], [address] | | LAB | | | [address], | | | | | | [place] [address] | | | | + + + + + + | ALP, | 93Comment: Testing | 35 - 115 U/L | EXTERNAL | | | External | performed at [facility], [address] | | LAB | | | | [address], | | | | | | [place] [address] | | | | + + + + + + | AST | 23Comment: Testing | 10 - 45 U/L | EXTERNAL | | | | performed at [facility], [address] | | LAB | | | | [address], | | | | | | [place] [address] | | | | + + + + + + | ALT | 14Comment: Testing | 10 - 65 U/L | EXTERNAL | | | | performed at [facility], [address] | | LAB | | | | [address], | | | | | | [place] [address] | | | | + + + [...] | | | | | [place] [address] | | | | + + + [...] | | | | | [place] [address] | | | | + + + + + + | RED CELL | 2.78 (L)Comment: Testing | 3.70 - 5.10 | EXTERNAL | | | COUNT | performed at [facility], [address] | M/uL | LAB | | | | [address], | | | | | | [place] [address] | | | | + + + [...] | | | | | [place] [address] | | | | + + + + + + | MCV | 107.5 (H)Comment: | 80.0 - 100.0 fl | EXTERNAL | | | | Testing performed at | | LAB | | | | [facility], [address] [facility] | | | | | | [place] | | | | | | [address] | | | | + + + + + + | MCH | 34.9 (H)Comment: Testing | 27.0 - 34.0 pg | EXTERNAL | | | | performed at [facility], [address] | | LAB | | | | [address], | | | | | | [place] [address] | | | | + + + + + + | MCHC | 32.5Comment: Testing | 32.0 - 35.5 | EXTERNAL | | | | performed at [facility], [address] | g/dL | LAB | | | | [address], | | | | | | [place] [address] | | | | + + + + + + | RDW-CV | 57.3 (H)Comment: Testing | 37 - 53 fl | EXTERNAL | | | | performed at [facility], [address] | | LAB | | | | [address], | | | | | | [place] [address] | | | | + + + + + + | Platelet | 162Comment: Testing | 150 - 400 K/uL | EXTERNAL | | | Count | performed at [facility], [address] | | LAB | | | Plasma | [address], | | | | | | [place] [address] | | | | + + + + + + | MPV | 11.6Comment: Testing | fl | EXTERNAL | | | | performed at [facility], [address] | | LAB | | | | [address], | | | | | | [place], [place] [address] | | | | + + + + + + | Differentia | MANUALComment: Testing | | EXTERNAL | | | l Type | performed at [facility], [address] | | LAB | | | | [address], | | | | | | [place], [place] [address] | | | | + + + + + + | Segmented | 31Comment: Testing | % | EXTERNAL | | | Neutrophils | performed at [facility], [address] | | LAB | | | Manual | [address], | | | | | | [place], [place] [address] | | | | + + + + + + | Lymphocytes | 52Comment: Testing | % | EXTERNAL | | | Manual | performed at [facility], [address] | | LAB | | | | [address], | | | | | | [place] [address] | | | | + + + + + + | Monocytes | 11Comment: Testing | % | EXTERNAL | | | Manual | performed at [facility], [address] | | LAB | | | | [address], | | | | | | [place] [address] | | | | + + + + + + | Eosinophils | 6Comment: Testing | % | EXTERNAL | | | Manual | performed at [facility], [address] | | LAB | | | | [address], | | | | | | [place] [address] | | | | + + + + + + | Absolute | 3.19Comment: Testing | 1.90 - 7.40 | EXTERNAL | | | Neutrophils | performed at [facility], [address] | K/uL | LAB | | | | [address], | | | | | | [place] [address] | | | | + + + + + + | Absolute | 5.36 (H)Comment: Testing | 1.00 - 3.90 | EXTERNAL | | | Lymphocytes | performed at [facility], [address] | K/uL | LAB | | | | [address], | | | | | | [place] [address] | | | | + + + + + + | Absolute | 1.13 (H)Comment: Testing | 0.00 - 0.80 | EXTERNAL | | | Monocytes | performed at [facility], [address] | K/uL | LAB | | | | [address], | | | | | | [place] [address] | | | | + + + + + + | Absolute | 0.62 (H)Comment: Testing | 0.00 - 0.50 | EXTERNAL | | | Eosinophils | performed at [facility], [address] | K/uL | LAB | | | | [address], | | | | | | [place] [address] | | | | + + + + + + | RBC | 2+Comment: MACRONORMAL | | EXTERNAL | | | Morphology | PLT MORPHTesting | | LAB | | | | performed at [facility], [address] | | | | | | [address], | | | | | | [place] [address] | | | | | | | [...] [address], | | | | | | [place] [address] | | | | + + + [...] | | | | | [place] [address] | | | | + + + [...] | | | | | [place] [address] | | | | + + + + + + | K | 4.2Comment: Testing | 3.5 - 4.9 | EXTERNAL | | | | performed at [facility], [address] | mmol/L | LAB | | | | [address], | | | | | | [place] [address] | | | | + + + + + + | Cl | 112 (H)Comment: Testing | 99 - 109 mmol/L | EXTERNAL | | | | performed at [facility], [address] | | LAB | | | | [address], | | | | | | [place] [address] | | | | + + + + + + | CO2 | 27Comment: Testing | 23 - 32 mmol/L | EXTERNAL | | | | performed at [facility], [address] | | LAB | | | | [address], | | | | | | [place] [address] | | | | + + + + + + | Anion Gap | 4 (L)Comment: Testing | 5 - 20 mmol/L | EXTERNAL | | | | performed at [facility], [address] | | LAB | | | | [address], | | | | | | [place] [address] | | | | + + + + + + | Glucose, | 94Comment: Testing | 65 - 99 mg/dL | EXTERNAL | | | Fasting | performed at [facility], [address] | | LAB | | | | [address], | | | | | | [place] [address] | | | | + + + + + + | BUN | 19Comment: Testing | 8 - 25 mg/dL | EXTERNAL | | | | performed at [facility], [address] | | LAB | | | | [address], | | | | | | [place] [address] | | | | + + + + + + | Creatinine | 1.01 (H)Comment: Testing | 0.50 - 1.00 | EXTERNAL | | | | performed at [facility], [address] | mg/dL | LAB | | | | [address], | | | | | | [place] [address] | | | | + + + + + + | BUN/Creatin | 19Comment: Testing | | EXTERNAL | | | ine Ratio | performed at [facility], [address] | | LAB | | | | [address], | | | | | | [place] [address] | | | | + + + + + + | Calcium | 8.1 (L)Comment: Testing | 8.5 - 10.5 | EXTERNAL | | | | performed at [facility], [address] | mg/dL | LAB | | | | [address], | | | | | | [place] [address] | | | | + + + + + + | Protein, | 5.9 (L)Comment: Testing | 6.3 - 8.2 g/dL | EXTERNAL | | | Total | performed at [facility], [address] | | LAB | | | | [address], | | | | | | [place] [address] | | | | + + + + + + | Albumin | 2.5 (L)Comment: Testing | 3.3 - 4.8 g/dL | EXTERNAL | | | | performed at [facility], [address] | | LAB | | | | [address], | | | | | | [place] [address] | | | | + + + + + + | Globulin | 3.4Comment: Testing | 1.3 - 4.9 g/dL | EXTERNAL | | | | performed at [facility], [address] | | LAB | | | | [address], | | | | | | [place] [address] | | | | + + + + + + | A/G Ratio | 0.7 (L)Comment: Testing | 1.0 - 2.4 | EXTERNAL | | | | performed at [facility], [address] | | LAB | | | | [address], | | | | | | [place] [address] | | | | + + + + + + | Bilirubin | 0.3Comment: Testing | 0.1 - 1.5 mg/dL | EXTERNAL | | | Total | performed at [facility], [address] | | LAB | | | | [address], | | | | | | [place] [address] | | | | + + + + + + | ALP, | 98Comment: Testing | 35 - 115 U/L | EXTERNAL | | | External | performed at [facility], [address] | | LAB | | | | [address], | | | | | | [place] [address] | | | | + + + + + + | AST | 24Comment: Testing | 10 - 45 U/L | EXTERNAL | | | | performed at [facility], [address] | | LAB | | | | [address], | | | | | | [place] [address] | | | | + + + + + + | ALT | 14Comment: Testing | 10 - 65 U/L | EXTERNAL | | | | performed at [facility], [address] | | LAB | | | | [facility], | | | | | | [place] [address] | | | | + + + [...] W | | | | | | [email or web address] | | | | | | [place] [address] | | | | + + + [...] [place] | | | | | | [address] | | | | + + +---- + + + | RED CELL | 2.93 (L)Comment: Testing | 3.7 0 - 5.10 | EXTERNAL | | | COUNT | performed at [facility], [address] | LAB | | | | [address], | | | | | | [place] [address] | | | | + + +---- + + + | Hgb | 10.2 (L)Comment: Testing | 11. 3 - 15.5 | EXTERNAL | | | | performed at [facility], [address] | g/d L | LAB | | | | [address], | | | | | | [place] [address] | | | | + + +---- + + + | Hematocrit, | 31.6 (L)Comment: Testing | 34. 0 - 46.0 % | EXTERNAL | | | POC | performed at [facility], [address] | | LAB | | | | [address], | | | | | | [place] [address] | | | | + + +---- + + + | MCV | 107.8 (H)Comment: | 80. 0 - 100.0 fl | EXTERNAL | | | | Testing performed at | | LAB | | | | [facility], [address] | | | | | | [place] | | | | | | [address] | | | | + + +---- + + + | MCH | 34.8 (H)Comment: Testing | 27. 0 - 34.0 pg | EXTERNAL | | | | performed at [facility], [address] | | LAB | | | | [address], | | | | | | [place] [address] | | | | + + +---- + + + | MCHC | 32.3Comment: Testing | 32. 0 - 35.5 | EXTERNAL | | | | performed at [facility], [address] | g/d L | LAB | | | | [address], | | | | | | [place] [address] | | | | + + +---- + + + | RDW-CV | 57.3 (H)Comment: Testing | 37 - 53 fl | EXTERNAL | | | | performed at [facility], [address] | | LAB | | | | [address], | | | | | | [place] [address] | | | | + + +---- + + + | Platelet | 146 (L)Comment: Testing | 150 - 400 K/uL | EXTERNAL | | | Count | performed at [facility], [address] | | LAB | | | Plasma | [address], | | | | | | [place] [address] | | | | + + +---- + + + | MPV | 11.2Comment: Testing | fl | EXTERNAL | | | | performed at [facility], [address] | | LAB | | | | [address], | | | | | | [place] [address] | | | | + + +---- + + + | Differentia | MANUALComment: Testing | | EXTERNAL | | | l Type | performed at [facility], [address] | | LAB | | | | [address], | | | | | | [place] [address] | | | | + + +---- + + + | Segmented | 58Comment: Testing | % | EXTERNAL | | | Neutrophils | performed at [facility], [address] | | LAB | | | Manual | [address], | | | | | | [place] [address] | | | | + + +---- + + + | % Bands | 20Comment: Testing | % | EXTERNAL | | | | performed at [facility], [address] | | LAB | | | | [address], | | | | | | [place] [address] | | | | + + +---- + + + | Lymphocytes | 13Comment: Testing | % | EXTERNAL | | | Manual | performed at [facility], [address] | | LAB | | | | [address], | | | | | | [place] [address] | | | | + + +---- + + + | Monocytes | 7Comment: Testing | % | EXTERNAL | | | Manual | performed at [facility], [address] | | LAB | | | | [address], | | | | | | [place] [address] | | | | + + +---- + + + | Eosinophils | 2Comment: Testing | % | EXTERNAL | | | Manual | performed at [facility], [address] | | LAB | | | | [address], | | | | | | [place] [address] | | | | + + +---- + + + | Absolute | 9.23 (H)Comment: Testing | 1.9 0 - 7.40 | EXTERNAL | | | Neutrophils | performed at [facility], [address] | K/u L | LAB | | | | [address], | | | | | | [place] [address] | | | | + + +---- + + + | Bands | 3.18 (H)Comment: Testing | 0.0 0 - 0.20 | EXTERNAL | | | Manual | performed at [facility], [address] | K/u L | LAB | | | | [address], | | | | | | [place] [address] | | | | + + +---- + + + | Absolute | 2.07Comment: Testing | 1.0 0 - 3.90 | EXTERNAL | | | Lymphocytes | performed at [facility], [address] | K/u L | LAB | | | | [address], | | | | | | [place] [address] | | | | + + +---- + + + | Absolute | 1.11 (H)Comment: Testing | 0.0 0 - 0.80 | EXTERNAL | | | Monocytes | performed at [facility], [address] | K/u L | LAB | | | | [address], | | | | | | [place] [address] | | | | + + +---- + + + | Absolute | 0.32Comment: Testing | 0.0 0 - 0.50 | EXTERNAL | | | Eosinophils | performed at [facility], [address] | K/u L | LAB | | | | [address], | | | | | | [place] [address] | | | | + + +---- + + + | RBC | 2+Comment: | | EXTERNAL | | | Morphology | MACRO1+ANISONORMAL PLT | | LAB | | | | MORPHTesting performed | | | | | | at [facility], [address] | | | | | | [facility] [employer], | | | | | | [place] [address] | | | | | |Testing performed at [facility], [address] [place] [address] | | | | | | | [...] | | | | | [place] [address] | | | | + + + [...] | | | | | [place] [address] | | | | + + + [...] | | | | | [place] [address] | | | | + + + + + + | K | 3.9Comment: Testing | 3.5 - 4.9 | EXTERNAL | | | | performed at [facility], [address] | mmol/L | LAB | | | | [address], | | | | | | [place] [address] | | | | + + + + + + | Cl | 109Comment: Testing | 99 - 109 mmol/L | EXTERNAL | | | | performed at [facility], [address] | | LAB | | | | [address], | | | | | | [place] [address] | | | | + + + + + + | CO2 | 24Comment: Testing | 23 - 32 mmol/L | EXTERNAL | | | | performed at [facility], [address] | | LAB | | | | [address], | | | | | | [place] [address] | | | | + + + + + + | Anion Gap | 8Comment: Testing | 5 - 20 mmol/L | EXTERNAL | | | | performed at [facility], [address] | | LAB | | | | [address], | | | | | | [place] [address] | | | | + + + + + + | Glucose, | 98Comment: Testing | 65 - 99 mg/dL | EXTERNAL | | | Fasting | performed at [facility], [address] | | LAB | | | | [address], | | | | | | [place] [address] | | | | + + + + + + | BUN | 25Comment: Testing | 8 - 25 mg/dL | EXTERNAL | | | | performed at [facility], [address] | | LAB | | | | [address], | | | | | | [place] [address] | | | | + + + + + + | Creatinine | 1.39 (H)Comment: Testing | 0.50 - 1.00 | EXTERNAL | | | | performed at [facility], [address] | mg/dL | LAB | | | | [address], | | | | | | [place] [address] | | | | + + + + + + | BUN/Creatin | 18Comment: Testing | | EXTERNAL | | | ine Ratio | performed at [facility], [address] | | LAB | | | | [address], | | | | | | [place] [address] | | | | + + + + + + | Calcium | 8.2 (L)Comment: Testing | 8.5 - 10.5 | EXTERNAL | | | | performed at [facility], [address] | mg/dL | LAB | | | | [address], | | | | | | [place] [address] | | | | + + + + + + | Protein, | 6.1 (L)Comment: Testing | 6.3 - 8.2 g/dL | EXTERNAL | | | Total | performed at [facility], [address] | | LAB | | | | [address], | | | | | | [place] [address] | | | | + + + + + + | Albumin | 2.4 (L)Comment: Testing | 3.3 - 4.8 g/dL | EXTERNAL | | | | performed at [facility], [address] | | LAB | | | | [address], | | | | | | [place] [address] | | | | + + + + + + | Globulin | 3.7Comment: Testing | 1.3 - 4.9 g/dL | EXTERNAL | | | | performed at [facility], [address] | | LAB | | | | [address], | | | | | | [place] [address] | | | | + + + + + + | A/G Ratio | 0.6 (L)Comment: Testing | 1.0 - 2.4 | EXTERNAL | | | | performed at [facility], [address] | | LAB | | | | [address], | | | | | | [place] [address] | | | | + + + + + + | Bilirubin | 0.4Comment: Testing | 0.1 - 1.5 mg/dL | EXTERNAL | | | Total | performed at [facility], [address] | | LAB | | | | [address], | | | | | | [place] [address] | | | | + + + + + + | ALP, | 111Comment: Testing | 35 - 115 U/L | EXTERNAL | | | External | performed at [facility], [address] | | LAB | | | | [address], | | | | | | [place] [address] | | | | + + + + + + | AST | 29Comment: Testing | 10 - 45 U/L | EXTERNAL | | | | performed at [facility], [address] | | LAB | | | | [address], | | | | | | [place] [address] | | | | + + + + + + | ALT | 14Comment: Testing | 10 - 65 U/L | EXTERNAL | | | | performed at [facility], [address] | | LAB | | | | [address], | | | | | | [place] [address] | | | | + + + [...] W | | | | | | [address], | | | | | | [place] [address] | | | | + + + [...] | | | | [facility], [address] [facility] | | | | | | [place] | | | | | | [address] | | | | + + + + + + | RED CELL | 3.12 (L)Comment: Testing | 3.70 - 5.10 | EXTERNAL | | | COUNT | performed at [facility], [address] | M/uL | LAB | | | | [address], | | | | | | [place] [address] | | | | + + + + + + | Hgb | 10.8 (L)Comment: Testing | 11.3 - 15.5 | EXTERNAL | | | | performed at [facility], [address] | g/dL | LAB | | | | [address], | | | | | | [place] [address] | | | | + + + + + + | Hematocrit, | 33.7 (L)Comment: Testing | 34.0 - 46.0 % | EXTERNAL | | | POC | performed at [facility], [address] | | LAB | | | | [address], | | | | | | [place] [address] | | | | + + + + + + | MCV | 108.0 (H)Comment: | 80.0 - 100.0 fl | EXTERNAL | | | | Testing performed at | | LAB | | | | [facility], [address] | | | | | | [place] | | | | | | [address] | | | | + + + + + + | MCH | 34.7 (H)Comment: Testing | 27.0 - 34.0 pg | EXTERNAL | | | | performed at [facility], [address] | | LAB | | | | [address], | | | | | | [place] [address] | | | | + + + + + + | MCHC | 32.1Comment: Testing | 32.0 - 35.5 | EXTERNAL | | | | performed at [facility], [address] | g/dL | LAB | | | | [address], | | | | | | [place] [address] | | | | + + + + + + | RDW-CV | 55.6 (H)Comment: Testing | 37 - 53 fl | EXTERNAL | | | | performed at [facility], [address] | | LAB | | | | [address], | | | | | | [place] [address] | | | | + + + + + + | Platelet | 153Comment: Testing | 150 - 400 K/uL | EXTERNAL | | | Count | performed at [facility], [address] | | LAB | | | Plasma | [address], | | | | | | [place] [address] | | | | + + + + + + | MPV | 11.2Comment: Testing | fl | EXTERNAL | | | | performed at [facility], [address] | | LAB | | | | [address], | | | | | | [place], [place] [address] | | | | + + + + + + | Differentia | MANUALComment: Testing | | EXTERNAL | | | l Type | performed at [facility], [address] | | LAB | | | | [address], | | | | | | [place], [place] [address] | | | | + + + + + + | Segmented | 64Comment: Testing | % | EXTERNAL | | | Neutrophils | performed at [facility], [address] | | LAB | | | Manual | [address], | | | | | | [place] [address] | | | | + + + + + + | % Bands | 15Comment: Testing | % | EXTERNAL | | | | performed at [facility], [address] | | LAB | | | | [address], | | | | | | [place] [address] | | | | + + + + + + | % | 2Comment: Testing | % | EXTERNAL | | | Metamyelocy | performed at [facility], [address] | | LAB | | | irma | [address], | | | | | | [place] [address] | | | | + + + + + + | Lymphocytes | 12Comment: Testing | % | EXTERNAL | | | Manual | performed at [facility], [address] | | LAB | | | | [address], | | | | | | [place] [address] | | | | + + + + + + | Monocytes | 6Comment: Testing | % | EXTERNAL | | | Manual | performed at [facility], [address] | | LAB | | | | [address], | | | | | | [place] [address] | | | | + + + + + + | Eosinophils | 1Comment: Testing | % | EXTERNAL | | | Manual | performed at [facility], [address] | | LAB | | | | [address], | | | | | | [place] [address] | | | | + + + + + + | Absolute | 11.48 (H)Comment: | 1.90 - 7.40 | EXTERNAL | | | Neutrophils | Testing performed at | K/uL | LAB | | | | [facility] [address] [facility] | | | | | | [place] | | | | | | [address] | | | | + + + + + + | Bands | 2.69 (H)Comment: Testing | 0.00 - 0.20 | EXTERNAL | | | Manual | performed at [facility], [address] | K/uL | LAB | | | | [address], | | | | | | [place] [address] | | | | + + + + + + | Absolute | 0.36 (H)Comment: Testing | K/uL | EXTERNAL | | | Metamyelocy | performed at [facility], [address] | | LAB | | | [address] | [address], | | | | | | [place] [address] | | | | + + + + + + | Absolute | 2.15Comment: Testing | 1.00 - 3.90 | EXTERNAL | | | Lymphocytes | performed at [facility], [address] | K/uL | LAB | | | | [address], | | | | | | [place] [address] | | | | + + + + + + | Absolute | 1.08 (H)Comment: Testing | 0.00 - 0.80 | EXTERNAL | | | Monocytes | performed at [facility], [address] | K/uL | LAB | | | | [address], | | | | | | [place] [address] | | | | + + + + + + | Absolute | 0.18Comment: Testing | 0.00 - 0.50 | EXTERNAL | | | Eosinophils | performed at [facility], [address] | K/uL | LAB | | | | [address], | | | | | | [place] [address] | | | | + + + + + + | RBC | 2+Comment: MACRONORMAL | | EXTERNAL | | | Morphology | PLT MORPHTesting | | LAB | | | | performed at [facility], [address] | | | | | | [address], | | | | | | [place] [address] | | | | | | | [...] EXTERNAL | | | | performed at [facility];[address] | mmol/L | LAB | | | | [address];[place] | | | | | | [address] | | | | + + + + + + | K | 3.8Comment: Testing | 3.5 - 4.9 | EXTERNAL | | | | performed at [facility];[address] | mmol/L | LAB | | | | [address];[place] | | | | | | [address] | | | | + + + + + + | Cl | 107Comment: Testing | 99 - 109 mmol/L | EXTERNAL | | | | performed at [facility];[address] | | LAB | | | | [address];[place] | | | | | | [address] | | | | + + + + + + | CO2 | 26Comment: Testing | 23 - 32 mmol/L | EXTERNAL | | | | performed at [facility];[address] | | LAB | | | | [address];[place] | | | | | | [address] | | | | + + + + + + | Anion Gap | 12Comment: Testing | 5 - 20 mmol/L | EXTERNAL | | | | performed at [facility];[address] | | LAB | | | | [address];[place] | | | | | | [address] | | | | + + + + + + | Glucose, | 127 (H)Comment: Testing | 65 - 99 mg/dL | EXTERNAL | | | Fasting | performed at [facility];[address] | | LAB | | | | [address];[place] | | | | | | [address] | | | | + + + + + + | BUN | 28 (H)Comment: Testing | 8 - 25 mg/dL | EXTERNAL | | | | performed at [facility];[address] | | LAB | | | | [address];[place] | | | | | | [address] | | | | + + + + + + | Creatinine | 1.8 (H)Comment: Testing | 0.50 - 1.00 | EXTERNAL | | | | performed at [facility];[address] | mg/dL | LAB | | | | [address];[place] | | | | | | [address] | | | | + + + + + + | BUN/Creatin | 16Comment: Testing | | EXTERNAL | | | ine Ratio | performed at [facility];[address] | | LAB | | | | [address];[place] | | | | | | [address] | | | | + + + + + + | Calcium | 7.6 (L)Comment: Testing | 8.5 - 10.5 | EXTERNAL | | | | performed at [facility];[address] | mg/dL | LAB | | | | [address];[place] | | | | | | [address] | | | | + + + [...] | | | | | | at [facility];[address];[place] [address] | | | | + + + [...] | | | | | | at [facility];[address] [place] [address] | | | | | | [facility];[place] [address] | | | | + + + [...] | | | | [facility], [address] [facility] | | | | | | [place] | | | | | | [address] | | | | + + +---- + + + | RED CELL | 3.07 (L)Comment: Testing | 3.7 0 - 5.10 | EXTERNAL | | | COUNT | performed at [facility], [address] | M/u L | LAB | | | | [address], | | | | | | [place] [address] | | | | + + +---- + + + | Hgb | 10.8 (L)Comment: Testing | 11. 3 - 15.5 | EXTERNAL | | | | performed at [facility], [address] | g/d L | LAB | | | | [address], | | | | | | [place] [address] | | | | + + +---- + + + | Hematocrit, | 32.7 (L)Comment: Testing | 34. 0 - 46.0 % | EXTERNAL | | | POC | performed at [facility], [address] | | LAB | | | | [address], | | | | | | [place] [address] | | | | + + +---- + + + | MCV | 106.4 (H)Comment: | 80. 0 - 100.0 fl | EXTERNAL | | | | Testing performed at | | LAB | | | | [facility], [address] | | | | | | [place] | | | | | | [address] | | | | + + +---- + + + | MCH | 35.1 (H)Comment: Testing | 27. 0 - 34.0 pg | EXTERNAL | | | | performed at [facility], [address] | | LAB | | | | [address], | | | | | | [place] [address] | | | | + + +---- + + + | MCHC | 33.0Comment: Testing | 32. 0 - 35.5 | EXTERNAL | | | | performed at [facility], [address] | g/d L | LAB | | | | [address], | | | | | | [place] [address] | | | | + + +---- + + + | RDW-CV | 56.0 (H)Comment: Testing | 37 - 53 fl | EXTERNAL | | | | performed at [facility], [address] | | LAB | | | | [address], | | | | | | [place] [address] | | | | + + +---- + + + | Platelet | 151Comment: Testing | 150 - 400 K/uL | EXTERNAL | | | Count | performed at [facility], [address] | | LAB | | | Plasma | [address], | | | | | | [place] [address] | | | | + + +---- + + + | MPV | 11.7Comment: Testing | fl | EXTERNAL | | | | performed at [facility], [address] | | LAB | | | | [address], | | | | | | [place] [address] | | | | + + +---- + + + | Differentia | MANUALComment: Testing | | EXTERNAL | | | l Type | performed at [facility], [address] | | LAB | | | | [address], | | | | | | [place] [address] | | | | + + +---- + + + | Segmented | 57Comment: Testing | % | EXTERNAL | | | Neutrophils | performed at [facility], [address] | | LAB | | | Manual | [address], | | | | | | [place] [address] | | | | + + +---- + + + | % Bands | 26Comment: Testing | % | EXTERNAL | | | | performed at [facility], [address] | | LAB | | | | [address], | | | | | | [place] [address] | | | | + + +---- + + + | % | 4Comment: Testing | % | EXTERNAL | | | Metamyelocy | performed at [facility], [address] | | LAB | | | irma | [address], | | | | | | [place] [address] | | | | + + +---- + + + | Lymphocytes | 9Comment: Testing | % | EXTERNAL | | | Manual | performed at [facility], [address] | | LAB | | | | [address], | | | | | | [place] [address] | | | | + + +---- + + + | Monocytes | 4Comment: Testing | % | EXTERNAL | | | Manual | performed at [facility], [address] | | LAB | | | | [address], | | | | | | [place] [address] | | | | + + +---- + + + | Absolute | 10.53 (H)Comment: | 1.9 0 - 7.40 | EXTERNAL | | | Neutrophils | Testing performed at | K/u L | LAB | | | | [facility], [address] | | | | | | [place] | | | | | | [address] | | | | + + +---- + + + | Bands | 4.80 (H)Comment: Testing | 0.0 0 - 0.20 | EXTERNAL | | | Manual | performed at [facility], [address] | K/u L | LAB | | | | [address], | | | | | | [place] [address] | | | | + + +---- + + + | Absolute | 0.74 (H)Comment: Testing | K/u L | EXTERNAL | | | Metamyelocy | performed at [facility], [address] | | LAB | | | irma | [address], | | | | | | [place] [address] | | | | + + +---- + + + | Absolute | 1.66Comment: Testing | 1.0 0 - 3.90 | EXTERNAL | | | Lymphocytes | performed at [facility], [address] | K/u L | LAB | | | | [address], | | | | | | [place] [address] | | | | + + +---- + + + | Absolute | 0.74Comment: Testing | 0.0 0 - 0.80 | EXTERNAL | | | Monocytes | performed at [facility], [address] | K/u L | LAB | | | | [address], | | | | | | [place] [address] | | | | + + +---- + + + | RBC | 2+Comment: | | EXTERNAL | | | Morphology | MACRO1+ANISONORMAL PLT | | LAB | | | | MORPHTesting performed | | | | | | at [facility], [address] | | | | | | [facility], | | | | | | [place] [address] | | | | | |Testing performed at [facility], [address] [facility], [place] [address] | | | | | | | [...] EXTERNAL | | | | performed at [facility];[address] | | LAB | | | | [address];[place], [place] | | | | | | [address] | | | | + + + [...] | | | | | performed at [facility];[address] | | | | | | [address];[place] | | | | | | [address] | | | | + + + [...] EXTERNAL | | | | performed at [facility];[address] | mmol/L | LAB | | | | [address];[place], [place] | | | | | | [address] | | | | + + + [...] EXTERNAL | | | | performed at [facility];[address] | mmol/L | LAB | | | | [address];[place] | | | | | | [address] | | | | + + + + + + | K | 4.4Comment: SPECIMEN | 3.5 - 4.9 | EXTERNAL | | | | SLIGHTLY | mmol/L | LAB | | | | HEMOLYZEDTesting | | | | | | performed at [facility];[address] | | | | | | [address];[place] | | | | | | [address] | | | | + + + + + + | Cl | 106Comment: Testing | 99 - 109 mmol/L | EXTERNAL | | | | performed at [facility];[address] | | LAB | | | | [address];[place] | | | | | | [address] | | | | + + + + + + | CO2 | 24Comment: Testing | 23 - 32 mmol/L | EXTERNAL | | | | performed at [facility];[address] | | LAB | | | | [address];[place] | | | | | | [address] | | | | + + + + + + | Anion Gap | 12Comment: Testing | 5 - 20 mmol/L | EXTERNAL | | | | performed at [facility];[address] | | LAB | | | | [address];[place] | | | | | | [address] | | | | + + + + + + | Glucose, | 103 (H)Comment: Testing | 65 - 99 mg/dL | EXTERNAL | | | Fasting | performed at [facility];[address] | | LAB | | | | [address];[place] | | | | | | [address] | | | | + + + + + + | BUN | 22Comment: Testing | 8 - 25 mg/dL | EXTERNAL | | | | performed at [facility];[address] | | LAB | | | | [address];[place] | | | | | | [address] | | | | + + + + + + | Creatinine | 1.9 (H)Comment: Testing | 0.50 - 1.00 | EXTERNAL | | | | performed at [facility] [place];888 | mg/dL | LAB | | | | [address];[place] | | | | | | [address] | | | | + + + + + + | BUN/Creatin | 12Comment: Testing | | EXTERNAL | | | ine Ratio | performed at [facility] [place];[address] | | LAB | | | | [address];[place] | | | | | | [address] | | | | + + + + + + | Calcium | 7.4 (L)Comment: Testing | 8.5 - 10.5 | EXTERNAL | | | | performed at [facility] [place];888 | mg/dL | LAB | | | | [address];[place] | | | | | | [address] | | | | + + + + + + | Protein, | 6.5Comment: Testing | 6.3 - 8.2 g/dL | EXTERNAL | | | Total | performed at [facility] [place];[address] | | LAB | | | | [address];[place] | | | | | | [address] | | | | + + + + + + | Albumin | 2.2 (L)Comment: Testing | 3.3 - 4.8 g/dL | EXTERNAL | | | | performed at [facility] [place];[address] | | LAB | | | | [address];[place] | | | | | | [address] | | | | + + + + + + | Globulin | 4.4Comment: Testing | 1.3 - 4.9 g/dL | EXTERNAL | | | | performed at [facility] [place];[address] | | LAB | | | | [address];[place] | | | | | | [address] | | | | + + + + + + | A/G Ratio | 0.5 (L)Comment: Testing | 1.0 - 2.4 | EXTERNAL | | | | performed at [facility] [place];[address] | | LAB | | | | [address];[place] | | | | | | [address] | | | | + + + + + + | Bilirubin | 0.5Comment: Testing | 0.1 - 1.5 mg/dL | EXTERNAL | | | Total | performed at [facility] [place];[address] | | LAB | | | | [address];[place] | | | | | | [address] | | | | + + + + + + | ALP, | 148 (H)Comment: Testing | 35 - 115 U/L | EXTERNAL | | | External | performed at [facility] [place];[address] | | LAB | | | | [address];[place] | | | | | | [address] | | | | + + + + + + | AST | 41Comment: SPECIMEN | 10 - 45 U/L | EXTERNAL | | | | SLIGHTLY | | LAB | | | | HEMOLYZEDTesting | | | | | | performed at [facility] [place];[address] | | | | | | [address];[place] | | | | | | [address] | | | | + + + + + + | ALT | 23Comment: Testing | 10 - 65 U/L | EXTERNAL | | | | performed at [facility] [place];[address] | | LAB | | | | [address];[place] | | | | | | [address] | | | | + + + [...] | | | | | | at [facility] [place];[address] | | | | | | [address];[place] [address] | | | | + + + [...] WORKUP | | | Testing performed at [facility], [address], [place] | | | [address] | | + + + + +---------+ [...] | | | | | [place] [address] | | | | + + + + + + | Clarity | CLOUDYComment: Testing | | EXTERNAL | | | | performed at [facility], [address] | | LAB | | | | [address], | | | | | | [place] [address] | | | | + + + + + + | Specific | 1.015Comment: Testing | 1.002 - 1.030 | EXTERNAL | | | [place] | performed at [facility], [address] | | LAB | | | | [address], | | | | | | [place] [address] | | | | + + + + + + | Leukocyte | SMALL (A)Comment: | | EXTERNAL | | | Esterase, | Testing performed at | | LAB | | | Urine | [facility], [address] | | | | | | [place] | | | | | | [address] | | | | + + + + + + | Nitrite, | NEGATIVEComment: Testing | | EXTERNAL | | | Urine | performed at [facility], [address] | | LAB | | | | [address], | | | | | | [place] [address] | | | | + + + + + + | Urobilinoge | 0.2Comment: Testing | mg/dL | EXTERNAL | | | n, Urine | performed at [facility], [address] | | LAB | | | | [address], | | | | | | [place] [address] | | | | + + + + + + | Protein, | 100 (A)Comment: Testing | mg/dL | EXTERNAL | | | Urine | performed at [facility], [address] | | LAB | | | | [place] [address], | | | | | | [place] [address] | | | | + + + + + + | pH, Urine | 6.5Comment: Testing | 5.0 - 8.0 | EXTERNAL | | | | performed at [facility], [address] | | LAB | | | | [place] [address], | | | | | | [place] [address] | | | | + + + + + + | Blood, | MODERATE (A)Comment: | | EXTERNAL | | | Urine | Testing performed at | | LAB | | | | [facility], [address] | | | | | | [place] | | | | | | [address] | | | | + + [...] | | | | | [place] [address] | | | | + + + + + + | Glucose, | NEGATIVEComment: Testing | mg/dL | EXTERNAL | | | Urine | performed at [facility], [address] | | LAB | | | | [address], | | | | | | [place] [address] | | | | + + + [...] | | | | | [place] [address] | | | | + + + + + + | RBC, UA | 1-5Comment: Testing | 0 - 5 /hpf | EXTERNAL | | | | performed at [facility], [address] | | LAB | | | | [address], | | | | | | [place] [address] | | | | + + + [...] [place] | | | | | | [address] | | | | + + + + + + | Urinalysis | CULTURE TO | | EXTERNAL | | | Comments | FOLLOWComment: Testing | | LAB | | | | performed at [facility], [address] | | | | | | [place], | | | | | | [place] [address] | | | | + + + [...] EXTERNAL | | | | performed at [facility];888 | mg/dL | LAB | | | | [address];[place] | | | | | | [address] | | | | + + [...] LAB | | C.diffAbnormal Testing performed at [facility];[address] [place] [address] | | | [id number] [id number] NAP1 BI 027 NAP1 BI | | | PRESUMPTIVE NEGATIVE Detection of 027 NAP1 BI strains of C. difficile | | | is presumptive and for epidemiological purposes and not intended to | | | guide or monitor treatment for C. difficile infections. Testing | | | performed at [facility];[address] [place] [address];[place] [address] | | + + + + +---------+ [...] EXTERNAL | | | | performed at [facility];888 | mmol/L | LAB | | | | [address];[place], [place] | | | | | | [address] | | | | + + + [...] | | | | | | at [facility];[address] | | | | | | [facility];[place] [address] | | | | + + + [...] EXTERNAL | | | | performed at [facility];[address] | | LAB | | | | [address];[place], [place] | | | | | | [address] | | | | + + + [...] | | | | | | ACUTE MT Testing | | | | | | performed at [facility];[address] | | | | | | [facility];[place], [place] | | | | | | [address] | | | | + + + [...] K/uL | LAB | | | | [facility];[address] | | | | | | [place] [address] | | | | + + + + + + | RED CELL | 3.66 (L)Comment: Testing | 3.70 - 5.10 | EXTERNAL | | | COUNT | performed at [facility];[address] | M/uL | LAB | | | | [address];[place] | | | | | | [address] | | | | + + + + + + | Hgb | 12.6Comment: Testing | 11.3 - 15.5 | EXTERNAL | | | | performed at [facility];888 | g/dL | LAB | | | | [address];[place] | | | | | | [address] | | | | + + + + + + | Hematocrit, | 38.9Comment: Testing | 34.0 - 46.0 % | EXTERNAL | | | POC | performed at [facility];[address] | | LAB | | | | [address];[place] | | | | | | [address] | | | | + + + + + + | MCV | 106.3 (H)Comment: | 80.0 - 100.0 fl | EXTERNAL | | | | Testing performed at | | LAB | | | | [facility];[address];[place] [address] | | | | + + + + + + | MCH | 34.3 (H)Comment: Testing | 27.0 - 34.0 pg | EXTERNAL | | | | performed at [facility];[address] | | LAB | | | | [address];[place] | | | | | | [address] | | | | + + + + + + | MCHC | 32.3Comment: Testing | 32.0 - 35.5 | EXTERNAL | | | | performed at [facility];888 | g/dL | LAB | | | | [address];[place] | | | | | | [address] | | | | + + + + + + | RDW-CV | 54.7 (H)Comment: Testing | 37 - 53 fl | EXTERNAL | | | | performed at [facility];[address] | | LAB | | | | [address];[place] | | | | | | [address] | | | | + + + + + + | Platelet | 167Comment: Testing | 150 - 400 K/uL | EXTERNAL | | | Count | performed at [facility];[address] | | LAB | | | Plasma | [address];[place] | | | | | | [address] | | | | + + + + + + | MPV | 10.6Comment: Testing | fl | EXTERNAL | | | | performed at [facility];[address] | | LAB | | | | [address];[place] | | | | | | [address] | | | | + + + + + + | Differentia | MANUALComment: Testing | | EXTERNAL | | | l Type | performed at [facility];[address] | | LAB | | | | [address];[place] | | | | | | [address] | | | | + + + + + + | Segmented | 54Comment: Testing | % | EXTERNAL | | | Neutrophils | performed at [facility];[address] | | LAB | | | Manual | [address];[place] | | | | | | [address] | | | | + + + + + + | % Bands | 18Comment: Testing | % | EXTERNAL | | | | performed at [facility];[address] | | LAB | | | | [address];[place] | | | | | | [address] | | | | + + + + + + | Lymphocytes | 16Comment: Testing | % | EXTERNAL | | | Manual | performed at [facility];[address] | | LAB | | | | [address];[place] | | | | | | [address] | | | | + + + + + + | Monocytes | 12Comment: Testing | % | EXTERNAL | | | Manual | performed at [facility];[address] | | LAB | | | | [address];[place] | | | | | | [address] | | | | + + + + + + | Absolute | 10.69 (H)Comment: | 1.90 - 7.40 | EXTERNAL | | | Neutrophils | Testing performed at | K/uL | LAB | | | | [facility];[address];[place] [address] | | | | + + + + + + | Bands | 3.56 (H)Comment: Testing | 0.00 - 0.20 | EXTERNAL | | | Manual | performed at [facility];[address] | K/uL | LAB | | | | [address];[place] | | | | | | [address] | | | | + + + + + + | Absolute | 3.16Comment: Testing | 1.00 - 3.90 | EXTERNAL | | | Lymphocytes | performed at [facility];[address] | K/uL | LAB | | | | [address];[place] | | | | | | [address] | | | | + + + + + + | Absolute | 2.37 (H)Comment: Testing | 0.00 - 0.80 | EXTERNAL | | | Monocytes | performed at [facility];[address] | K/uL | LAB | | | | [address];[place] | | | | | | [address] | | | | + + + + + + | Platelet | ADEQUATEComment: Testing | | EXTERNAL | | | Estimate | performed at [facility];[address] | | LAB | | | | [address];[place] | | | | | | [address] | | | | + + + + + + | RBC | NORMAL PLT MORPHComment: | | EXTERNAL | | | Morphology | 1+ANISOTesting | | LAB | | | | performed at [facility];[address] | | | | | | [address];[place] | | | | | | [address] | | | | | | | [...] EXTERNAL | | | | performed at [facility];[address] | uIU/mL | LAB | | | | [address];[place], [place] | | | | | | [address] | | | | + + + [...] EXTERNAL | | | | performed at [facility];[address] | | LAB | | | | [address];[place], [place] | | | | | | [address] | | | | + + + [...] | | LAB | | | | [facility];[address] | | | | | | [address];[place] [address] | | | | + + + [...] EXTERNAL | | | | performed at [facility];[address] | | LAB | | | | [address];[place], [place] | | | | | | [address] | | | | + + + [...] EXTERNAL | | | | performed at [facility];[address] | | LAB | | | | [address];[place] | | | | | | [address] | | | | + + + [...] EXTERNAL | | | | performed at [facility];888 | mmol/L | LAB | | | | [address];[place] | | | | | | [address] | | | | + + + + + + | K | 3.4 (L)Comment: Testing | 3.5 - 4.9 | EXTERNAL | | | | performed at [facility];[address] | mmol/L | LAB | | | | [address];[place] | | | | | | [address] | | | | + + + + + + | Cl | 101Comment: Testing | 99 - 109 mmol/L | EXTERNAL | | | | performed at [facility];[address] | | LAB | | | | [address];[place] | | | | | | [address] | | | | + + + + + + | CO2 | 27Comment: Testing | 23 - 32 mmol/L | EXTERNAL | | | | performed at [facility];[address] | | LAB | | | | [address];[place] | | | | | | [address] | | | | + + + + + + | Anion Gap | 12Comment: Testing | 5 - 20 mmol/L | EXTERNAL | | | | performed at [facility];[address] | | LAB | | | | [address];[place] | | | | | | [address] | | | | + + + + + + | Glucose, | 106 (H)Comment: Testing | 65 - 99 mg/dL | EXTERNAL | | | Fasting | performed at [facility];[address] | | LAB | | | | [address];[place] | | | | | | [address] | | | | + + + + + + | BUN | 18Comment: Testing | 8 - 25 mg/dL | EXTERNAL | | | | performed at [facility];[address] | | LAB | | | | [address];[place] | | | | | | [address] | | | | + + + + + + | Creatinine | 1.3 (H)Comment: Testing | 0.50 - 1.00 | EXTERNAL | | | | performed at [facility];888 | mg/dL | LAB | | | | [address];[place] | | | | | | [address] | | | | + + + + + + | BUN/Creatin | 14Comment: Testing | | EXTERNAL | | | ine Ratio | performed at [facility];[address] | | LAB | | | | [address];[place] | | | | | | [address] | | | | + + + + + + | Calcium | 7.3 (L)Comment: Testing | 8.5 - 10.5 | EXTERNAL | | | | performed at [facility];888 | mg/dL | LAB | | | | [address];[place] | | | | | | [address] | | | | + + + + + + | Protein, | 7.9Comment: Testing | 6.3 - 8.2 g/dL | EXTERNAL | | | Total | performed at [facility];[address] | | LAB | | | | [address];[place] | | | | | | [address] | | | | + + + + + + | Albumin | 2.5 (L)Comment: Testing | 3.3 - 4.8 g/dL | EXTERNAL | | | | performed at [facility];[address] | | LAB | | | | [address];[place] | | | | | | [address] | | | | + + + + + + | Globulin | 5.4 (H)Comment: Testing | 1.3 - 4.9 g/dL | EXTERNAL | | | | performed at [facility];[address] | | LAB | | | | [address];[place] | | | | | | [address] | | | | + + + + + + | A/G Ratio | 0.5 (L)Comment: Testing | 1.0 - 2.4 | EXTERNAL | | | | performed at [facility];[address] | | LAB | | | | [address];[place] | | | | | | [address] | | | | + + + + + + | Bilirubin | 0.6Comment: Testing | 0.1 - 1.5 mg/dL | EXTERNAL | | | Total | performed at [facility];[address] | | LAB | | | | [address];[place] | | | | | | [address] | | | | + + + + + + | ALP, | 188 (H)Comment: Testing | 35 - 115 U/L | EXTERNAL | | | External | performed at [facility];[address] | | LAB | | | | [address];[place] | | | | | | [address] | | | | + + + + + + | AST | 51 (H)Comment: Testing | 10 - 45 U/L | EXTERNAL | | | | performed at [facility];[address] | | LAB | | | | [address];[place] | | | | | | [address] | | | | + + + + + + | ALT | 30Comment: Testing | 10 - 65 U/L | EXTERNAL | | | | performed at [facility];[address] | | LAB | | | | [address];[place] | | | | | | [address] | | | | + + + [...] | | | | | | at [facility];[address];[place] [address] | | | | + + + [...] Performed At | + + + | CLOE ERNST 1945 69 years XR CHEST 1 [...] Conversion - 01/05/2019 4:32 AM PDT COLE [id number] yearsXR | | CHEST 1 VIEW01/28/2015 2:40 [...]
--- OUTSIDE RECORDS SUMMARY | ~2019-05-06 | XMS | Encounter Summary ---
Demographics + + + | Address | [address] | | | [place] [address] | + + + | Home Phone [...] Providers + +------+ + | Care Manager Agricultural Name | Role | Phone | + [...] + + | 05/10/ | Office | [facility] | Gary Melendez, | Restrictive lung | | 2013 | Visit | PULMONARY [address] | MD [address] | disease (Primary | | | | [place], | [place], [place] | Dx); Hypoxemia; | | | | [place] [address] | [address] | Kyphosis deformity | | | | [phone] | | of spine | +--------+---------+ + [...] techniques, exercise, and stress management. In some [facility], a lung transplant is an option. Your healthcare team may include: A primary care provider,such as your family doctor. A bed teacher,a specialist in lung problems. A pulmonary nurse specialistwho helps you understand and carry out your treatment. A pulmonary rehabilitation specialistwho helps you gain strength through exercise. A social workerwho helps with your daily needs, family life, and stress. [id number] [employer]. [address] [place] [address]. All righ ts reserved. This information is [...]
--- OUTSIDE RECORDS SUMMARY | ~2019-05-06 | XMS | Encounter Summary ---
Demographics + + + | Address | [address] | | | [place] [address] | + + + | Home Phone [...] Team Providers + +------+ + | Care Learning Disabilities Teacher Name | Role | Phone | + +------+ + PCP | Unavailable | + +------+ + Encounter Details +--------+ + + + + | Date | Type | Department | Care Team | Description | +--------+ + + + + | 04/20/ | Documentati | Transplant | Laura Mercado, | | | 2018 | on | Coordinators [address] | RN [address] | | | | | [address] | [address] | | | | | [place], [place] | [place], [place] | | | | | [address] | [address] | | | | | [phone] | | | +--------+ + + + [...]
--- OUTSIDE RECORDS SUMMARY | ~2019-05-06 | XMS | Encounter Summary ---
Demographics + + + | Address | [address] | | | [place] [address] | + + + | Home Phone [...] Team Providers + +------+ + | Care Central Office Equipment Installer Name | Role | Phone | [...] | 03/26/ | Office | [facility] | Gary Melendez, | Hypoxemia (Primary | | 2014 | Visit | [address]ULMONARY [address] | MD [address] | Dx); Kyphosis | | | | [place], | [place], [place] | deformity of spine; | | | | [place] [address] | [address] | Restrictive lung | | | | [phone] | | disease | +--------+---------+ + + [...] + | MISCELLANEOUS LAB | | | [phone] | + +---------+ + + | MISCELANIOUS LAB | | | [phone] | + +---------+ + + documented in this encounter Visit Diagnoses + + | Diagnosis | + + | Hypoxemia - Primary | + + | 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
--- OUTSIDE RECORDS SUMMARY | ~2019-05-06 | XMS | Clinical Summary ---
Demographics + + + | Address | [address] | | | [place] [address] | + + + | Home Phone | | + + + | Preferred Language | Unknown | + + + | Marital Status | Unknown | + + + | Amish Affiliation | Unknown | + + + | Race | Unknown | + + + | Ethnic Group | Unknown | + + + Author + + + | Author | [facility] | + + + | Organization | [facility] | + + + | Address | Unknown | + + + | Phone | Unavailable | + + + Care Team Providers + +------+ + | Care Service Delivery Management Consultant Name | Role | Phone | + +------+ + PCP | Unavailable | + +------+ + Source Comments JAYDEN is fully live on both EpicCare Ambulatory and EpicCare InPatient.[facility] Allergies Not [...]
--- OUTSIDE RECORDS SUMMARY | ~2019-05-06 | XMS | Encounter Summary ---
Demographics + + + | Address | [address] | | | [place] [address] | + + + | Home Phone | | + + + | Preferred Language | Unknown | + + + | Marital Status | Single | + + + | Church Affiliation | [id number] | + + + | Race | Unknown | + + + | Ethnic Group | Unknown | + + + Author + + + | Author | [facility] | | | and [place] | + + + | Organization | [facility] | | | [...] Providers + +------+ + | Care Automotive Design Drafter Name | Role | Phone | + [...] [place], [place] | | | | | [place], [place] | [address] | | | | | [address] | | | | | | [phone] | | | +--------+ + + + [...] 0.03 m/s | | | MV Dec Mcduffie: 9.74 m/s2 MV DecT: 91.63 ms MV E Billy: 0.89 | | | m/s MV E/A Ratio: 26.03 MV PHT: 26.57 ms MVA By PHT: 8.27 | | | cm2 Septal e': 0.06 m/s Septal E/e': 12.90 Lateral e': | | | 0.09 m/s Lateral E/e': 8.96 RAP: 5 mmHg RVSP: 17.59 mmHg | | | TR maxP.59 mmHg TR Vmax: 1.77 m/s [employer] Consultant: NAIF | | | Authenticated by: Conor Kempelmore Report Date/Time: -- | | | [id number] | | + + + + + [...] cmLVPWd: 1.14 cmLVOT | | Area: 3.33 iz2CVPU Diam: 2.06 cm%FS: 26.43 %EF(Teich): 51.67 %ESV(Teich): [...] (A-L): | | 45.82 ml/m2LAAs A2C: 22.15 co1GEWYE A-L A2C: 71.25 mlLALs A2C: 5.84 cmLAAs A4C: | | 28.64 [id number] A-L A4C: 104.24 mlLALs A4C: 6.68 cmRAAs: 14.65 [id number] A-L: | | 33.90 mlRAESV MOD: 34.21 mlRALs: 5.37 cmAV maxP.81 mmHgAV meanP.70 | | mmHgAV Vmax: 1.30 m/Sorin Vmean: 0.90 m/Sorin VTI: 24.74 cmAVA Vmax: 2.36 cm2AVA | | (VTI): 2.24 zk4LWED maxP.41 mmHgLVOT meanP.88 mmHgLVSI Dopp: 27.63 | | ml/m2LVSV Dopp: 55.54 mlLVOT Vmax: 0.92 m/sLVOT Vmean: 0.64 m/sLVOT VTI: 16.66 | | cmMV A Billy: 0.03 m/sMV Dec Mcduffie: 9.74 m/s2MV DecT: 91.63 msMV E Billy: 0.89 m/sMV | | E/A Ratio: 26.03MV PHT: 26.57 msMVA By PHT: 8.27 zt8Ajeplh e': 0.06 m/sSeptal | | E/e': 12.90Lateral e': 0.09 m/sLateral E/e': 8.96RAP: 5 mmHgRVSP: 17.59 mmHgTR | | maxP.59 mmHgTR Vmax: 1.77 m/s [employer] Consultant: DHAuthenticated by: Conor | | [facility] Date/Time: -- [id number] IMPRESSION: 1. The left ventricle is | [...] A Billy: 0.03 m/s | |MV Dec Mcduffie: 9.74 m/s2 | |MV DecT: 91.63 ms [...] |TR Vmax: 1.77 m/s | | | |[employer] Consultant: NAIF | |Authenticated by: Conor Garcia | |Report Date/Time: -- [id number] | | | |IMPRESSION: | |1. The [...]
--- OUTSIDE RECORDS SUMMARY | ~2019-05-06 | XMS | Encounter Summary ---
Demographics + + + | Address | [address] | | | [place] [address] | + + + | Home Phone | | + + + | Preferred Language | Unknown | + + + | Marital Status | Single | + + + | Sabianist Affiliation | [id number] | + + + [...] Team Providers + +------+ + | Care Asphalt Machine Operator Name | Role | Phone | + +------+ + | Yovani Santana MD | PCP | | + +------+ + Encounter Details +--------+ + + + + | Date | Type | Department | Care Team | Description | +--------+ + + + + | 01/14/ | Hospital | [facility] | Jennifer Hartman MD | Near syncope; | | 2015 - | Encounter | [facility] | [address] | Elevated troponin; | | | | CARE FLOOR [address] | [place] [address] | Non-STEMI (non-ST | | 01/19/ | | [address] | [phone] | elevated myocardial | | 2015 | | [place], [place] | | infarction) ([facility]); | | | | [address] | | CKD (chronic kidney | | | | [phone] | | disease), | | | | | | unspecified stage; | | | | | | Leukocytosis; ZULAY | | | | | | (acute kidney | | | | | | injury) ([facility]); Liver | | | | | | replaced by | | | | | | transplant ([facility]) | +--------+ + + + [...] Date of Service: 01/19/15 0753 Status: Signed Cargo Checker: Emma Hardy MD (Physician) Related Notes: Original Note by Emma Hardy MD (Physician) filed at 01/19/15 0800 [facility] Service: Hospitalist Physician Discharge Summary [...] history of chronic pain, on chronic methadone, steamship agent denny kidney disease, stage III, presented with generalized weakness, acute renal failure, and elevate troponin. The patient was taken off methadone about 3 weeks prior to admission. Pre vious creatinine was 1.38 and the patient was presented at [facility] in [place] , was found to have elevated troponin of 0.55 and noted to have creatinine of 2.4 and leukoc ytosis and was transferred for gcf-HT-jluswfnhu IL. HOSPITAL COURSE The patient was admitted with xej-AO-cjkaomhwu IL. Cardiology consult was obtained. She was started [...] lipid-lowerin g therapy. The patient also has ihtdf-zw-ltrqihl kidney disease, stage III. Acute renal fail [...] to have severe protein calorie malnutrition and station worker was consulted. Her blood pressures remain [...] 1.5* 1.8 1.4* Invalid input(s): ABG Disposition: half-way facility Follow up: Ki De Jesus DO [address] [facility] [address] [place] [address] Schedule an appointment as soon as possible for a visit in 4 days Juan Ramey MD [address] [facility] [address] [facility] [address] Schedule an appointment as soon as possible for a visit in 1 week Follow up biopsy results Juju Riggins MD [address] [place] [address] Schedule an appointment as soon as [...] are the prescriptions that you need to pickling solution maker. You may get the following medications from [...] summary. This entry has been created using [employer] Speech Recognition software and [employer]. The entry has been reviewed and [...] Date of Service: 01/19/15 1300 Status: Signed Cargo Checker: Shaista Lin RN (Registered Nurse) Pt discharged via wheel chair on 2 L of oxygen. To [facility] in [place]. Pt alert and o rientedX4. onver alessandro Transaction, Provider Unknown - 01/19/2015 8:20 AM PDT Case Management by PHUONG Roman at 01/19/15819 Author: PHUONG Roman Service: (none) Author Type: Key Maker Filed: 01/19/15819 Date of Service: 01/19/15819 Status: Signed Cargo Checker: PHUONG Roman (Key Maker) Disposition: [facility] Transportation: facility van All orders, signed [...] 0625 Date of Service: 01/19/15412 Status: Signed Cargo Checker: Yady Singh RN (Registered Nurse) Patient resting quietly all night. Medicated once for all over general pain. No further com plaints. VSS. onver alessandro Transaction, Provider Unknown - 01/18/2015 3:21 PM PDT Case Management by PHUONG Roman at 01/18/15 1521 Author: PHUONG Roman Service: (none) Author Type: Key Maker Filed: 01/18/15 1521 Date of Service: 01/18/15 1521 Status: Signed Cargo Checker: PHUONG Roman (Key Maker) spoke w/ Will at [facility] who reports they can accept and transport pt tomorrow AM. PHUONG Roman osangela Kirk MD - 01/18/2015 3:10 PM PDT Progress Notes by Rosangela Steinberg MD at 01/18/15 1510 Author: Rosangela Steinberg MD Service: Infectious Disease Author Type: Physician Filed: 01/18/15 7954 Date of Service: 01/18/15 1510 Status: Signed Cargo Checker: Rosangela Steinberg MD (Physician) [facility] Service: Infectious Disease Progress Note [...] vomiting and diarrhea. Had initially presented to [facility] in [place] with similar complaints. Was foun d to have an elevated troponin. She was mainly admitted as a non-STEMI. Found to have a leuk ocytosis. Since patient is immunocompromised, she was started empirically on IV ceftriaxone. Chest x-ray showed no infiltrate. Patient denies any recent fevers or chills. She went to [facility] mainly becau se of syncope. Prior to [...] extraluminal fluid collection abdomen pelvis without contrast [[id number]] Impression 1. Hypoinflated chest, but no evident infiltrate chest 1 view [[id number]] Impression 1. Indication for study and thus [...] 1445 Date of Service: 01/18/15748 Status: Signed Cargo Checker: Emma Hardy MD (Physician) [facility] Service: Hospitalist Progress Note Hospital [...] (HCC) ASSESSMENT & PLAN 1. Non-ST elevation IL. Possible demand ischemia. Will schedule for nuclear [...] schrader 8. Deconditioning Continue physical therapy and retirement facility placement versus home PT 9. Chronic [...] AM This entry has been created using [employer] Speech Recognition software and [employer]. The entry has been reviewed and there may still exist sound alike word errors. onversion Trans action, Provider Unknown - 01/18/2015 5:16 AM PDT Nurse Progress Note by Yady Singh RN at 01/18/15515 Author: Yady Singh RN Service: (none) Author Type: Registered Nurse Filed: 01/18/152104 Date of Service: 01/18/15515 Status: Signed Cargo Checker: Yday Singh RN (Registered Nurse) Pt taken to [...] Date of Service: 01/17/15 162 Status: Signed Cargo Checker: Jose Maria Espinal MD (Physician) Related Notes: Original Note by Jose Maria Espinal MD (Physician) filed at 01/17/152012 [facility] Service: Hospitalist Progress Note Pt: Cole Ernst AGE/SEX: 69 y.o. female : 1945 ROOM: [address] [place] [address] History of Present Illness: " The patient [...] who called EMS. Patient was taken to [facility] in [place]. Susie ent was noted to have a [...] borderline blood pressure. While at [facility] with systolic in the low 90s. Heart [...] CT done several days ago while in [place]. She also stat es that her vomiting and diarrhea have significantly improved. She denies any fevers, hemat emesis, melena, bright red blood per rectum, hematuria, dysuria, she denies any leg pain or swelling. No palpitations. She states she does have a history of "kidney disease" and was told that it was secondary to cyclosporine. However, she is not seen kidney specialist [facility] her liver transplant.".....per admitting MD/Dr. [...] collected as n oted. I urged the temporary staff accountant to introduce a hat so that sample [...] contrast. Prior study for comparison: None FINDINGS: Barnworker Groom 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 deg enerative changes of [...] 0.80 m/s TV E/A Rat io: 1.21 Picker/Puller: NEDRA Authenticated by: Gil Martines MD Report [...] nutritional supplements as recommend ed by nutrition service/station worker. Jose Maria Espinal MD 01/17/2015 4:29 PM onversion Transa ction, Provider Unknown - 01/17/2015 3:15 PM PDT Case Management by PHUONG Sandhu at 01/17/15 1515 Author: PHUONG Sandhu Service: (none) Author Type: Heel Breaster Filed: 01/17/15 1518 Date of Service: 01/17/155 Status: Signed Cargo Checker: PHUONG Sandhu (Heel Breaster) 01/17/15 1500 Discharge Planning Evaluation Admitting Diagnosis Near syncope, elevated tropinin, non-stemi, CKD Anticipated Disposition Facility Type half-way facility Medicare Important Message (MEREDITH) Given Half-Way [facility] Other (comment) ([facility]) COATING MIXER SUPERVISOR met with Pt for discharge planning, on board with going to [facility] when medically ready. COATING MIXER SUPERVISOR p/c to [facility] - will accept Pt when medically ready. [facility] (73 miles) [address] [place] [address], [place] Palliative Care Specialist: Will DCP: [facility] Transportation: [facility] Facility Van - Palliative Care Specialist: Will Medicare important message signed and copy in chart LUIS FOUNTAIN, Key Maker [phone] cell Rosangela Zavala MD - 01/17/2015 1:11 PM PDT Progress Notes by Rosangela Steinberg MD at 01/17/15 1311 Author: Rosangela Steinberg MD Service: Infectious Disease Author Type: Physician Filed: 01/17/15 2914 Date of Service: 01/17/15 1311 Status: Signed Cargo Checker: Rosangela Steinberg MD (Physician) [facility] Service: Infectious Disease Progress Note [...] vomiting and diarrhea. Had initially presented to [facility] in [place] with similar complaints. Was foun d to have an elevated troponin. She was mainly admitted as a non-STEMI. Found to have a leuk ocytosis. Since patient is immunocompromised, she was started empirically on IV ceftriaxone. Chest x-ray showed no infiltrate. Patient denies any recent fevers or chills. She went to [facility] mainly becau se of syncope. Prior to [...] extraluminal fluid collection abdomen pelvis without contrast [[id number]] Impression 1. Hypoinflated chest, but no evident infiltrate chest 1 view [[id number]] Impression 1. Indication for study and thus [...] 01/16/152137 Date of Service: 01/16/152127 Status: Signed Cargo Checker: Juju Riggins MD (Physician) [facility] Service: Cardiology Progress Note Hospital [...] Author: PHUONG Sandhu Service: (none) Author Type: Heel Breaster Filed: 01/16/156 Date of Service: 01/16/151642 Status: Signed Cargo Checker: PHUONG Sandhu (Heel Breaster) 01/16/15 1600 Discharge Planning Evaluation Admitting Diagnosis Near syncope, elevated tropinin, non-stemi, CKD Anticipated Disposition Facility Type half-way facility Half-Way Facility Other (comment) ([facility]) PHUONG received p/c from Will, admissions at [facility], states they are willi ng to accept Pt to their Half-Way Facility, states their house physician will not pre scribe Methadone. Will states she will start authorization process with [employer] who is Managing the Medicare benefits. Will states the first 20 days are covered at 100% then day 21 will be $100.00 a day. DCP: [facility] or Home LUIS FOUNTAIN,Key Maker [phone] cell Jose Maria Grimes MD - 01/16/2015 11:29 AM PDTFormatting of this note might be different from th e original. Progress Notes by Jose Maria Espinal MD at 01/16/15 1129 Author: Jose Maria Espinal MD Service: Hospitalist Author Type: Physician Filed: 01/17/15 1149 Date of Service: 01/16/15 1129 Status: Signed Cargo Checker: Jose Maria Espinal MD (Physician) Related Notes: Original Note by Jose Maria Espinal MD (Physician) filed at 01/16/15 1137 [facility] Service: Hospitalist Progress Note Pt: Cole Ernst AGE/SEX: 69 y.o. female : 1945 ROOM: [address] [place] [address] History of Present Illness: " The patient [...] who called EMS. Patient was taken to [facility] in [place]. Susie ent was noted to have a [...] borderline blood pressure. While at [facility] with systolic in the low 90s. Heart [...] CT done several days ago while in [place]. She also stat es that her vomiting and diarrhea have significantly improved. She denies any fevers, hemat emesis, melena, bright red blood per rectum, hematuria, dysuria, she denies any leg pain or swelling. No palpitations. She states she does have a history of "kidney disease" and was told that it was secondary to cyclosporine. However, she is not seen kidney specialist [facility] her liver transplant.".....per admitting MD/Dr. [...] collected as n oted. I urged the temporary staff accountant to introduce a hat so that sample [...] contrast. Prior study for comparison: None FINDINGS: Barnworker Groom 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 deg enerative changes of [...] TV Dec Time: 184.41 ms TV E Bilyl: 0.80 m/s TV E/A Rat io: 1.21 Picker/Puller: NEDRA Authenticated by: Gil Martines MD Report [...] Date of Service: 01/16/15 1102 Status: Signed Cargo Checker: Natalio Benito PT (Physical Therapist) 01/16/15 1102 PT Last Visit PT Received On 01/16/15 Reason for Treatment Deconditioning;Other (comment) (NSTEMI; Syncope) Requires PT Follow Up Awaiting tx order Follow up PT Only? No PT Eval/Reassessment Date 01/16/15 Assistance Required 1 person Garde Manger Needed No Home Environment Type of Home Apartment ground level Home Exterior Layout Entry steps none Home Interior Layout Lives on main level with bedroom/bathroom Bathroom Shower/Tub Tub/shower unit Bathroom Toilet Standard Bathroom Equipment Shower stool;Grab bars in shower/bath;Grab bars outside of shower/bath Bathroom Accessibility Other (Comment) (Small bathroom) Home Equipment Walker 4 wheeled;Cane single point Prior Function Level of [place] Modified independent with functional mobility;Modified independent wi [...] (sitting in recliner w/ call light and COMBINATION WORKER present) Restraints Initially in Place No Precautions [...] Eval/Reassessment Date 01/16/15 Assistance Required 1 person Garde Manger Needed No Precautions Other Precautions Fall Risk [...] support. Patient in the recli ner w/ COMBINATION WORKER present at end of session, no new [...] (sitting in recliner w/ call light and COMBINATION WORKER present) Restraints Initially in Place No Plan [...] Date of Service: 01/16/15 1045 Status: Signed Cargo Checker: Nupur Tadeo MD (Physician) [facility] Service: Infectious Disease Progress Note [...] vomiting and diarrhea. Had initially presented to [facility] in [place] with similar complaints. Was found to have an elevated troponin . She was mainly admitted as a non-STEMI. Found to have a leukocytosis. Since patient is imm unocompromised, she was started empirically on IV ceftriaxone. Chest x-ray showed no infiltrate. Patient denies any recent fevers or chills. She went to [facility] mainly becau se of syncope. Prior to [...] Author: PHUONG Sandhu Service: (none) Author Type: Heel Breaster Filed: 01/16/15 1042 Date of Service: 01/16/15 1030 Status: Signed Cargo Checker: PHUONG Sandhu (Heel Breaster) 01/16/15 1000 Discharge Planning Evaluation Admitting Diagnosis Near syncope, elevated tropinin, non-stemi, CKD Anticipated Disposition Facility Type half-way facility COATING MIXER SUPERVISOR met with Pt and discussed discharge planning, states she has concerns returning home at this time, as Pt resides alone. COATING MIXER SUPERVISOR discussed rehab options, SNF vs Home Health vs Outpatient PT. Pt states her sister (Annie Tipton [phone] cell) assists with IADLs as Pt does not polo ojeda. Pt states she resides alone and has been doing ADLs on her own. Pt states she uses a 4WW with seat at home, then uses a cane when out of the home, stated, "I am a little vain" abou t using the 4WW in public. Pt is interested in [facility] [place], due to close proximity to her home. COATING MIXER SUPERVISOR faxe d SNF referral. Pt is [...] need SNF Anticipated DCP: Pending placement at [facility] [place] LUIS FOUNTAIN, Key Maker [phone] cell Luisito Mejía - 01/16/2015 9:12 AM PDTFormatting of this note might be different from the or iginal. Progress Notes by Luisito Thomas MD at 01/16/15911 Author: Luisito Thomas MD Service: Nephrology Author Type: Physician Filed: 01/20/15 1907 Date of Service: 01/16/15911 Status: Signed Cargo Checker: Luiisto Thomas MD (Physician) [facility] Service: NEPHROLOGY PROGRESS Note Cole Ernst 69 y.o. [id number] 4445/[id number] female [facility] Day: LOS: 2 days The patient is a 69 y.o. 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 High CIWA this shift =4. Patient c/o generalized pain, treated with PRN [place] per orders. Patient observed to be sle eping, following PRN medication and repositioning. Patient continues to be NSR-ST on tele. Vitals stable. Will continue to monitor patient. ose Maria Black MD - 01/15/2015 3:19 PM PDTFormatting of this note might be different from armando tellez original. Progress Notes by Jose Maria Espinal MD at 01/15/15 9976 Author: Jose Maria Espinal MD Service: Hospitalist Author Type: Physician Filed: 01/16/15 0925 Date of Service: 01/15/151518 Status: Signed Cargo Checker: Jose Maria Espinal MD (Physician) Related Notes: Original Note by Jose Maria Espinal MD (Physician) filed at 01/15/151939 [facility] Service: Hospitalist Progress Note Pt: [...] who called EMS. Patient was taken to [facility] in [place]. Susie ent was noted to have a [...] borderline blood pressure. While at [facility] with systolic in the low 90s. Heart [...] CT done several days ago while in [place]. She also stat es that her vomiting and diarrhea have significantly improved. She denies any fevers, hemat emesis, melena, bright red blood per rectum, hematuria, dysuria, she denies any leg pain or swelling. No palpitations. She states she does have a history of "kidney disease" and was told that it was secondary to cyclosporine. However, she is not seen kidney specialist [facility] her liver transplant.".....per admitting MD/Dr. [...] contrast. Prior study for comparison: None FINDINGS: Barnworker Groom 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 deg enerative changes of [...] 0.80 m/s TV E/A Rat io: 1.21 Picker/Puller: NEDRA Authenticated by: Gil Martines MD Report [...] Elevated troponins, question underlying non ST elevation IL. Continue current medical th erapy. I appreciate [...] (none) Author Type: Registered Dietitian Filed: 01/15/15 1435 Date of Service: 01/15/151429 Status: Signed Cargo Checker: Ronda Michaels RD (Registered Dietitian) 01/15/15 4525 Subjective Timepoint Admit Pt c/o In to [...] Estimated Energy Needs Total Energy Estimated Needs 9397-9218 kcal Method for Estimating Needs 25-30 kcal/kg [...] Date of Service: 01/15/15 1043 Status: Signed Cargo Checker: Luisito Thomas MD (Physician) [facility] Service: NEPHROLOGY PROGRESS Note Cole Ernst 69 y.o. [id number] 4445/[id number] female [facility] Day: LOS: 1 day The patient is a 69 y.o. 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 See ED Record for Physician Inter pretation. 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 [...] 01/14/152226 Date of Service: 01/14/152226 Status: Signed Cargo Checker: Jazz Rahman RPH (Pharmacist) Clinical Pharmacy Note - Renal Dose Adjustment Cole Ernst 69 y.o. female Ht Readings from Last 1 Encounters: 01/14/15 1.6 m (5' 3") Wt Readings from Last 1 Encounters: 01/14/15 89.6 kg (197 lb 8.5 oz) CREATININE Date Value Ref Range Status 01/14/2015 2.4* 0.50 - 1.00 mg/dL Final Comment: Testing performed at [facility];[address] [place] [address];[place] [address] CREATININE: 2.4 mg/dL ABNORMAL (01/14/15 1548) Estimated [...] PHUONG Crump LICSW Service: (none) Author Type: Key Maker Filed: 01/14/151734 Date of Service: 01/14/151733 Status: Signed Cargo Checker: PHUONG Crump LICSW (Key Maker) 01/14/151727 Discharge Planning Evaluation Admitting Diagnosis Near syncope, elevated tropinin, non-stemi, CKD Readmission No Living Arrangements Alone Support Systems Family members;Friends/neighbors Type of Residence Private residence House type Apartment Bathrooms on 1st Floor 1-Full Independent with ADL's Yes Independent with Mobility No-comment Home Care Services No Mental Status Oriented Power of Wet Process Technician No;Other (comment) Resources Transportation issues No Prescription Plan Yes Name of Pharmacy [facility] in [place], [place] Previous home health equipment Yes Anticipated Disposition Facility Type Home Met with patient and discussed discharge planning, Pt is a 69 y.o., female who reports skyleri mack alone. Patient reports her sister, Annie Tipton, will transport her home a t discharge. Patient's PCP is: KI DE JESUS (General) Patient's insurance:b [employer] & Medicare Coverage concerns: Medication coverage/concerns: Doreen Bedside Delivery: [facility] resources utilized / needed: TBD Assistance in [...] preparation was | | | performed by [facility] | | | [place] [address] (Precision Grinder External: Martin | | | Zhang Galvan; [facility]#: [id number]). Diagnostician: Martin Potter | | Pathologist Electronically Signed 01/21/2015 | [...] | | | | | [place] [address] | | | | + + + [...] | | | | | [place] [address] | | | | + + + [...] mmol/L | LAB | | | | [address], | | | | | | [place] [address] | | | | + + + + + + | K | 3.4 (L)Comment: Testing | 3.5 - 4.9 | EXTERNAL | | | | performed at [facility], [address] | mmol/L | LAB | | | | [address], | | | | | | [place] [address] | | | | + + + + + + | Cl | 101Comment: Testing | 99 - 109 mmol/L | EXTERNAL | | | | performed at [facility], [address] | | LAB | | | | [address], | | | | | | [place] [address] | | | | + + + + + + | CO2 | 28Comment: Testing | 23 - 32 mmol/L | EXTERNAL | | | | performed at [facility], [address] | | LAB | | | | [address], | | | | | | [place] [address] | | | | + + + + + + | Anion Gap | 10Comment: Testing | 5 - 20 mmol/L | EXTERNAL | | | | performed at [facility], [address] | | LAB | | | | [address], | | | | | | [place] [address] | | | | + + + + + + | Glucose, | 107 (H)Comment: Testing | 65 - 99 mg/dL | EXTERNAL | | | Fasting | performed at [facility], [address] | | LAB | | | | [address], | | | | | | [place] [address] | | | | + + + + + + | BUN | 8Comment: Testing | 8 - 25 mg/dL | EXTERNAL | | | | performed at [facility], [address] | | LAB | | | | [address], | | | | | | [place] [address] | | | | + + + + + + | Creatinine | 0.96Comment: Testing | 0.50 - 1.00 | EXTERNAL | | | | performed at [facility], [address] | mg/dL | LAB | | | | [address], | | | | | | [place] [address] | | | | + + + + + + | BUN/Creatin | 8Comment: Testing | | EXTERNAL | | | ine Ratio | performed at [facility], [address] | | LAB | | | | [address], | | | | | | [place] [address] | | | | + + + + + + | Calcium | 8.6Comment: Testing | 8.5 - 10.5 | EXTERNAL | | | | performed at [facility], [address] | mg/dL | LAB | | | | [facility], | | | | | | [place] [address] | | | | + + + [...] W | | | | | | [facility], | | | | | | [place] [address] | | | | + + + [...] + + + | COLE ERNST 1945 [place] MYOCARDIAL PERFUSION SPECT - STRESS | | [...] Conversion - 01/05/2019 4:32 AM PDT COLE ERNST1945MT MYOCARDIAL | | PERFUSION SPECT - STRESS [...] K/uL | LAB | | | | [facility], | | | | | | [place] [address] | | | | + + + + + + | RED CELL | 3.41 (L)Comment: Testing | 3.70 - 5.10 | EXTERNAL | | | COUNT | performed at [facility], [address] | M/uL | LAB | | | | [address] [facility], | | | | | | [place] [address] | | | | + + + + + + | Hgb | 11.9Comment: Testing | 11.3 - 15.5 | EXTERNAL | | | | performed at [facility], [address] | g/dL | LAB | | | | [address], | | | | | | [place] [address] | | | | + + + + + + | Hematocrit, | 35.7Comment: Testing | 34.0 - 46.0 % | EXTERNAL | | | POC | performed at [facility], [address] | | LAB | | | | [address], | | | | | | [place] [address] | | | | + + + + + + | MCV | 104.6 (H)Comment: | 80.0 - 100.0 fl | EXTERNAL | | | | Testing performed at | | LAB | | | | [facility], [address] | | | | | | [place] | | | | | | [address] | | | | + + + + + + | MCH | 34.9 (H)Comment: Testing | 27.0 - 34.0 pg | EXTERNAL | | | | performed at [facility], [address] | | LAB | | | | [address], | | | | | | [place] [address] | | | | + + + + + + | MCHC | 33.3Comment: Testing | 32.0 - 35.5 | EXTERNAL | | | | performed at [facility], [address] | g/dL | LAB | | | | [address], | | | | | | [place] [address] | | | | + + + + + + | RDW-CV | 50.8Comment: Testing | 37 - 53 fl | EXTERNAL | | | | performed at [facility], [address] | | LAB | | | | [address], | | | | | | [place] [address] | | | | + + + [...] | | | | | [place] [address] | | | | + + + + + + | MPV | 12.6Comment: Testing | fl | EXTERNAL | | | | performed at [facility], [address] | | LAB | | | | [address], | | | | | | [place] [address] | | | | + + + + + + | Differentia | AUTOMATEDComment: | | EXTERNAL | | | l Type | Testing performed at | | LAB | | | | [facility], [address] | | | | | | [place] | | | | | | [address] | | | | + + + + + + | % Segmented | 40.31Comment: Testing | % | EXTERNAL | | | | performed at [facility], [address] | | LAB | | | Neutrophils | [address], | | | | | | [place] [address] | | | | + + + + + + | % | 39.78Comment: Testing | % | EXTERNAL | | | Lymphocytes | performed at [facility], [address] | | LAB | | | | [address], | | | | | | [place], [place] [address] | | | | + + + + + + | % Monocytes | 12.51Comment: Testing | % | EXTERNAL | | | | performed at [facility], [address] | | LAB | | | | [address], | | | | | | [place], [place] [address] | | | | + + + + + + | % | 6.45Comment: Testing | % | EXTERNAL | | | Eosinophils | performed at [facility], [address] | | LAB | | | | [address], | | | | | | [place], [place] [address] | | | | + + + + + + | % Basophils | 0.95Comment: Testing | % | EXTERNAL | | | | performed at [facility], [address] | | LAB | | | | [address], | | | | | | [place] [address] | | | | + + + + + + | Absolute | 3.26Comment: Testing | 1.90 - 7.40 | EXTERNAL | | | Segmented | performed at [facility], [address] | K/uL | LAB | | | Neutrophils | [address], | | | | | | [place] [address] | | | | + + + + + + | Absolute | 3.21Comment: Testing | 1.00 - 3.90 | EXTERNAL | | | Lymphocytes | performed at [facility], [address] | K/uL | LAB | | | | [address], | | | | | | [place] [address] | | | | + + + + + + | Absolute | 1.01 (H)Comment: Testing | 0.00 - 0.80 | EXTERNAL | | | Monocytes | performed at [facility], [address] | K/uL | LAB | | | | [address], | | | | | | [place] [address] | | | | + + + + + + | Absolute | 0.52 (H)Comment: Testing | 0.00 - 0.50 | EXTERNAL | | | Eosinophils | performed at [facility], [address] | K/uL | LAB | | | | [address], | | | | | | [place] [address] | | | | + + + + + + | Absolute | 0.08Comment: Testing | 0.00 - 0.10 | EXTERNAL | | | Basophils | performed at [facility], [address] | K/uL | LAB | | | | [address], | | | | | | [place] [address] | | | | + + + + + + | RBC | RBC AND PLT MORPHOLOGY | | EXTERNAL | | | Morphology | APPEAR NORMALComment: | | LAB | | | | Testing performed at | | | | | | [facility], [address] [facility] | | | | | | [place] | | | | | | [address] | | | | + + + [...] Lu, | | | | | | [place] [address] | | | | + + + [...] | | | | | [place] [address] | | | | + + + [...] | | | | | [place] [address] | | | | + + + + + + | K | 3.8Comment: Testing | 3.5 - 4.9 | EXTERNAL | | | | performed at [facility], [address] | mmol/L | LAB | | | | [address], | | | | | | [place] [address] | | | | + + + + + + | Cl | 101Comment: Testing | 99 - 109 mmol/L | EXTERNAL | | | | performed at [facility], [address] | | LAB | | | | [address], | | | | | | [place] [address] | | | | + + + + + + | CO2 | 27Comment: Testing | 23 - 32 mmol/L | EXTERNAL | | | | performed at [facility], [address] | | LAB | | | | [address], | | | | | | [place] [address] | | | | + + + + + + | Anion Gap | 12Comment: Testing | 5 - 20 mmol/L | EXTERNAL | | | | performed at [facility], [address] | | LAB | | | | [address], | | | | | | [place] [address] | | | | + + + + + + | Glucose, | 118 (H)Comment: Testing | 65 - 99 mg/dL | EXTERNAL | | | Fasting | performed at [facility], [address] | | LAB | | | | [address], | | | | | | [place] [address] | | | | + + + + + + | BUN | 7 (L)Comment: Testing | 8 - 25 mg/dL | EXTERNAL | | | | performed at [facility], [address] | | LAB | | | | [address], | | | | | | [place] [address] | | | | + + + + + + | Creatinine | 0.79Comment: Testing | 0.50 - 1.00 | EXTERNAL | | | | performed at [facility], [address] | mg/dL | LAB | | | | [address], | | | | | | [place] [address] | | | | + + + + + + | BUN/Creatin | 9Comment: Testing | | EXTERNAL | | | ine Ratio | performed at [facility], [address] | | LAB | | | | [address], | | | | | | [place] [address] | | | | + + + + + + | Calcium | 7.5 (L)Comment: Testing | 8.5 - 10.5 | EXTERNAL | | | | performed at [facility], [address] | mg/dL | LAB | | | | [address], | | | | | | [place] [address] | | | | + + + + + + | Protein, | 7.2Comment: Testing | 6.3 - 8.2 g/dL | EXTERNAL | | | Total | performed at [facility], [address] | | LAB | | | | [address], | | | | | | [place] [address] | | | | + + + + + + | Albumin | 3.1 (L)Comment: Testing | 3.3 - 4.8 g/dL | EXTERNAL | | | | performed at [facility], [address] | | LAB | | | | [address], | | | | | | [place] [address] | | | | + + + + + + | Globulin | 4.1Comment: Testing | 1.3 - 4.9 g/dL | EXTERNAL | | | | performed at [facility], [address] | | LAB | | | | [address], | | | | | | [place] [address] | | | | + + + + + + | A/G Ratio | 0.8 (L)Comment: Testing | 1.0 - 2.4 | EXTERNAL | | | | performed at [facility], [address] | | LAB | | | | [address], | | | | | | [place] [address] | | | | + + + + + + | Bilirubin | 0.5Comment: Testing | 0.1 - 1.5 mg/dL | EXTERNAL | | | Total | performed at [facility], [address] | | LAB | | | | [address], | | | | | | [place], [place] [address] | | | | + + + + + + | ALP, | 76Comment: Testing | 35 - 115 U/L | EXTERNAL | | | External | performed at [facility], [address] | | LAB | | | | [address], | | | | | | [place], [place] [address] | | | | + + + + + + | AST | 43Comment: Testing | 10 - 45 U/L | EXTERNAL | | | | performed at [facility], [address] | | LAB | | | | [address], | | | | | | [place] [address] | | | | + + + + + + | ALT | 25Comment: Testing | 10 - 65 U/L | EXTERNAL | | | | performed at [facility], [address] | | LAB | | | | [address], | | | | | | [place] [address] | | | | + + + [...] Lu, | | | | | | [place] [address] | | | | + + + [...] EXTERNAL | | | | performed at [facility];[address] | mmol/L | LAB | | | | [address];[place], [place] | | | | | | [address] | | | | + + + [...] EXTERNAL | | | | performed at [facility];[address] | | LAB | | | | [address];[place], [place] | | | | | | [address] | | | | + + + [...] EXTERNAL | | | | performed at [facility];[address] | | LAB | | | | [address];[place], [place] | | | | | | [address] | | | | + + + [...] EXTERNAL | | | | performed at [facility];[address] | mmol/L | LAB | | | | [address];[place], [place] | | | | | | [address] | | | | + + + [...] EXTERNAL | | | | performed at [facility];[address] | | LAB | | | | [address];[place] | | | | | | [address] | | | | + + + [...] EXTERNAL | | | | performed at [facility];[address] | | LAB | | | | [address];[place], [place] | | | | | | [address] | | | | + + + [...] | | | | | [place] [address] | | | | + + + + + + | RED CELL | 3.40 (L)Comment: Testing | 3.70 - 5.10 | EXTERNAL | | | COUNT | performed at [facility], [address] | M/uL | LAB | | | | [address], | | | | | | [place] [address] | | | | + + + + + + | Hgb | 12.0Comment: Testing | 11.3 - 15.5 | EXTERNAL | | | | performed at [facility], [address] | g/dL | LAB | | | | [address], | | | | | | [place] [address] | | | | + + + + + + | Hematocrit, | 35.8Comment: Testing | 34.0 - 46.0 % | EXTERNAL | | | POC | performed at [facility], [address] | | LAB | | | | [address], | | | | | | [place] [address] | | | | + + + + + + | MCV | 105.3 (H)Comment: | 80.0 - 100.0 fl | EXTERNAL | | | | Testing performed at | | LAB | | | | [facility], [address] | | | | | | [place] | | | | | | [address] | | | | + + + + + + | MCH | 35.3 (H)Comment: Testing | 27.0 - 34.0 pg | EXTERNAL | | | | performed at [facility], [address] | LAB | | | | [address], | | | | | | [place] [address] | | | | + + + + + + | MCHC | 33.6Comment: Testing | 32.0 - 35.5 | EXTERNAL | | | | performed at [facility], [address] | g/dL | LAB | | | | [address], | | | | | | [place] [address] | | | | + + + + + + | RDW-CV | 50.8Comment: Testing | 37 - 53 fl | EXTERNAL | | | | performed at [facility], [address] | | LAB | | | | [address], | | | | | | [place] [address] | | | | + + + + + + | Platelet | 149 (L)Comment: Testing | 150 - 400 K/uL | EXTERNAL | | | Count | performed at [facility], [address] | | LAB | | | Plasma | [address], | | | | | | [place] [address] | | | | + + + + + + | MPV | 13.0Comment: Testing | fl | EXTERNAL | | | | performed at [facility], [address] | | LAB | | | | [address], | | | | | | [place] [address] | | | | + + + + + + | Differentia | AUTOMATEDComment: | | EXTERNAL | | | l Type | Testing performed at | | LAB | | | | [facility], [address] | | | | | | [place] | | | | | | [address] | | | | + + + + + + | % Segmented | 52.08Comment: Testing | % | EXTERNAL | | | | performed at [facility], [address] | | LAB | | | Neutrophils | [address], | | | | | | [place] [address] | | | | + + + + + + | % | 32.37Comment: Testing | % | EXTERNAL | | | Lymphocytes | performed at [facility], [address] | | LAB | | | | [address], | | | | | | [place], [place] [address] | | | | + + + + + + | % Monocytes | 10.07Comment: Testing | % | EXTERNAL | | | | performed at [facility], [address] | | LAB | | | | [address], | | | | | | [place], [place] [address] | | | | + + + + + + | % | 4.41Comment: Testing | % | EXTERNAL | | | Eosinophils | performed at [facility], [address] | | LAB | | | | [address], | | | | | | [place] [address] | | | | + + + + + + | % Basophils | 1.07Comment: Testing | % | EXTERNAL | | | | performed at [facility], [address] | | LAB | | | | [address], | | | | | | [place] [address] | | | | + + + + + + | Absolute | 5.59Comment: Testing | 1.90 - 7.40 | EXTERNAL | | | Segmented | performed at [facility], [address] | K/uL | LAB | | | Neutrophils | [address], | | | | | | [place] [address] | | | | + + + + + + | Absolute | 3.48Comment: Testing | 1.00 - 3.90 | EXTERNAL | | | Lymphocytes | performed at [facility], [address] | K/uL | LAB | | | | [address], | | | | | | [place] [address] | | | | + + + + + + | Absolute | 1.08 (H)Comment: Testing | 0.00 - 0.80 | EXTERNAL | | | Monocytes | performed at [facility], [address] | K/uL | LAB | | | | [address], | | | | | | [place] [address] | | | | + + + + + + | Absolute | 0.47Comment: Testing | 0.00 - 0.50 | EXTERNAL | | | Eosinophils | performed at [facility], [address] | K/uL | LAB | | | | [address], | | | | | | [place] [address] | | | | + + + + + + | Absolute | 0.12 (H)Comment: Testing | 0.00 - 0.10 | EXTERNAL | | | Basophils | performed at [facility], [address] | K/uL | LAB | | | | [address], | | | | | | [place] [address] | | | | + + + + + + | RBC | NORMAL RBC MORPHComment: | | EXTERNAL | | | Morphology | Testing performed at | | LAB | | | | [facility], [address] | | | | | | [place] | | | | | | [address] | | | | + + + + + + | Differentia | 1+ GIANT PLTComment: | | EXTERNAL | | | l Comments | Testing performed at | | LAB | | | | [facility], [address] | | | | | | [place] | | | | | | [address] | | | | + + + [...] | | | | | [place] [address] | | | | + + + + + + | K | 3.2 (L)Comment: Testing | 3.5 - 4.9 | EXTERNAL | | | | performed at [facility], [address] | mmol/L | LAB | | | | [address], | | | | | | [place] [address] | | | | + + + + + + | Cl | 100Comment: Testing | 99 - 109 mmol/L | EXTERNAL | | | | performed at [facility], [address] | | LAB | | | | [address], | | | | | | [place] [address] | | | | + + + + + + | CO2 | 28Comment: Testing | 23 - 32 mmol/L | EXTERNAL | | | | performed at [facility], [address] | | LAB | | | | [address], | | | | | | [place] [address] | | | | + + + + + + | Anion Gap | 13Comment: Testing | 5 - 20 mmol/L | EXTERNAL | | | | performed at [facility], [address] | | LAB | | | | [address], | | | | | | [place] [address] | | | | + + + + + + | Glucose, | 114 (H)Comment: Testing | 65 - 99 mg/dL | EXTERNAL | | | Fasting | performed at [facility], [address] | | LAB | | | | [address], | | | | | | [place] [address] | | | | + + + + + + | BUN | 8Comment: Testing | 8 - 25 mg/dL | EXTERNAL | | | | performed at [facility], [address] | | LAB | | | | [address], | | | | | | [place] [address] | | | | + + + + + + | Creatinine | 0.94Comment: Testing | 0.50 - 1.00 | EXTERNAL | | | | performed at [facility], [address] | mg/dL | LAB | | | | [address], | | | | | | [place] [address] | | | | + + + + + + | BUN/Creatin | 9Comment: Testing | | EXTERNAL | | | ine Ratio | performed at [facility], [address] | | LAB | | | | [address], | | | | | | [place] [address] | | | | + + + + + + | Calcium | 7.8 (L)Comment: Testing | 8.5 - 10.5 | EXTERNAL | | | | performed at [facility], [address] | mg/dL | LAB | | | | [address], | | | | | | [place] [address] | | | | + + + + + + | Protein, | 7.8Comment: Testing | 6.3 - 8.2 g/dL | EXTERNAL | | | Total | performed at [facility], [address] | | LAB | | | | [address], | | | | | | [place] [address] | | | | + + + + + + | Albumin | 3.3Comment: Testing | 3.3 - 4.8 g/dL | EXTERNAL | | | | performed at [facility], [address] | | LAB | | | | [address], | | | | | | [place] [address] | | | | + + + + + + | Globulin | 4.5Comment: Testing | 1.3 - 4.9 g/dL | EXTERNAL | | | | performed at [facility], [address] | | LAB | | | | [address], | | | | | | [place] [address] | | | | + + + + + + | A/G Ratio | 0.7 (L)Comment: Testing | 1.0 - 2.4 | EXTERNAL | | | | performed at [facility], [address] | | LAB | | | | [address], | | | | | | [place] [address] | | | | + + + + + + | Bilirubin | 0.4Comment: Testing | 0.1 - 1.5 mg/dL | EXTERNAL | | | Total | performed at [facility], [address] | | LAB | | | | [address], | | | | | | [place] [address] | | | | + + + + + + | ALP, | 83Comment: Testing | 35 - 115 U/L | EXTERNAL | | | External | performed at [facility], [address] | | LAB | | | | [address], | | | | | | [place] [address] | | | | + + + + + + | AST | 34Comment: Testing | 10 - 45 U/L | EXTERNAL | | | | performed at [facility], [address] | | LAB | | | | [address], | | | | | | [place] [address] | | | | + + + + + + | ALT | 24Comment: Testing | 10 - 65 U/L | EXTERNAL | | | | performed at [facility], [address] | | LAB | | | | [address], | | | | | | [place] [address] | | | | + + + [...] | | | | | [place] [address] | | | | + + + [...] LAB | | | | performed at [facility] | | | | | | [address];[place], [place] | | | | | | [address] | | | | + + + [...] LAB | | | | performed at [facility];[address] | | | | | | [address];[place], [place] | | | | | | [address] | | | | + + + [...] EXTERNAL | | | | performed at [facility];[address] | mmol/L | LAB | | | | [address];[place] | | | | | | [address] | | | | + + + [...] EXTERNAL | | | | performed at [facility];[address] | | LAB | | | | [address];[place], [place] | | | | | | [address] | | | | + + + [...] TESTING. | | | Testing performed at [facility], [address] | | | [place] [address] | | + + + + +---------+ [...] | Testing performed at | | | [facility], [address] [place] [address] | | + + + + +---------+ [...] NONE SEEN to 1+ Testing performed at [facility], [address] [facility] | | | [place] [address] | | + + + + +---------+ [...] antigen detected by ICA Testing performed at [facility], [facility] [address] | | | [facility] [place] [address] | | + + + + +---------+ [...] at | | | | | | [facility], [address] | | | | | | [place] | | | | | | [address] | | | | + + + [...] | | | | | performed at [facility], [address] | | | | | | [facility] | | | | | | [place] [address] | | | | + + + + + + + + | Specimen | + + | | + + + +---------+ + + | Performing | Address | City/State/Zipcode | Phone Number | | Organization | | | | + +---------+ + + | EXTERNAL LAB | | | | + +---------+ + + Cytomegalovirus, NAAT, Quant (01/16/2015 9:10 AM PDT) + + + + + + | Component | Value | Ref Range | Performed | Pathologist | | | | | At | Signature | + + + + + + | Source | PLASMAComment: Testing | | EXTERNAL | | | | performed at [facility];[address] | | LAB | | | | [address];[place] | | | | | | [address] | | | | + + + + + + | CMV DNA | NOT DETECTEDComment: | | EXTERNAL | | | QUANTITATIV | Unit: IU/MLTesting | | LAB | | | E INTERP | performed at [facility], [address] | | | | | | [facility] | | | | | | [place] [address] | | | | + + + + + + | CMV DNA, | NOT DETECTEDComment: | | EXTERNAL | | | Qual PCR | Unit: COPIES/MLTesting | | LAB | | | | performed at [facility], [address] | | | | | | [place] | | | | | | [place] [address] | | | | + + + [...] | | | | | | DETERMINEDBY [facility] | | | | | | DIVISION [...] | | | | | | DECISIONS. [facility] | | | | | | IS [...] | | | | | TRACABILITY TO THET | | | | | | WHO INTERNATIONAL | | | | | | STANDARD FOR HUMAN | | | | | | CYTOMEGALOVIRUS | | | | | | (HCMV).Testing performed | | | | | | at [facility], [address] | | | | | | [place] | | | | | | [address] | | | | + + + [...] | | | | | [place] [address] | | | | + + + + + + | RED CELL | 3.28 (L)Comment: Testing | 3.70 - 5.10 | EXTERNAL | | | COUNT | performed at [facility], [address] | M/uL | LAB | | | | [address], | | | | | | [place] [address] | | | | + + + + + + | Hgb | 11.6Comment: Testing | 11.3 - 15.5 | EXTERNAL | | | | performed at [facility], [address] | g/dL | LAB | | | | [address], | | | | | | [place] [address] | | | | + + + + + + | Hematocrit, | 34.5Comment: Testing | 34.0 - 46.0 % | EXTERNAL | | | POC | performed at [facility], [address] | | LAB | | | | [address], | | | | | | [place] [address] | | | | + + + + + + | MCV | 105.1 (H)Comment: | 80.0 - 100.0 fl | EXTERNAL | | | | Testing performed at | | LAB | | | | [facility], [address] | | | | | | [place] | | | | | | [id number] | | | | + + + + + + | MCH | 35.3 (H)Comment: Testing | 27.0 - 34.0 pg | EXTERNAL | | | | performed at [facility], [address] | | LAB | | | | [address], | | | | | | [place] [id number] | | | | + + + + + + | MCHC | 33.5Comment: Testing | 32.0 - 35.5 | EXTERNAL | | | | performed at [facility], [address] | g/dL | LAB | | | | [address], | | | | | | [place] [address] | | | | + + + + + + | RDW-CV | 50.8Comment: Testing | 37 - 53 fl | EXTERNAL | | | | performed at [facility], [address] | | LAB | | | | [address], | | | | | | [place] [address] | | | | + + + + + + | Platelet | 144 (L)Comment: Testing | 150 - 400 K/uL | EXTERNAL | | | Count | performed at [facility], [address] | | LAB | | | Plasma | [address], | | | | | | [place] [address] | | | | + + + + + + | MPV | 13.0Comment: Testing | fl | EXTERNAL | | | | performed at [facility], [address] | | LAB | | | | [address], | | | | | | [place] [address] | | | | + + + + + + | Differentia | AUTOMATEDComment: | | EXTERNAL | | | l Type | Testing performed at | | LAB | | | | [facility], [address] | | | | | | [place] | | | | | | [address] | | | | + + + + + + | % Segmented | 37.99Comment: Testing | % | EXTERNAL | | | | performed at [facility], [address] | | LAB | | | Neutrophils | [address], | | | | | | [place] [address] | | | | + + + + + + | % | 43.49Comment: Testing | % | EXTERNAL | | | Lymphocytes | performed at [facility], [address] | | LAB | | | | [address], | | | | | | [place] [address] | | | | + + + + + + | % Monocytes | 11.24Comment: Testing | % | EXTERNAL | | | | performed at [facility], [address] | | LAB | | | | [address], | | | | | | [place] [address] | | | | + + + + + + | % | 5.97Comment: Testing | % | EXTERNAL | | | Eosinophils | performed at [facility], [address] | | LAB | | | | [address], | | | | | | [place] [address] | | | | + + + + + + | % Basophils | 1.31Comment: Testing | % | EXTERNAL | | | | performed at [facility], [address] | | LAB | | | | [address], | | | | | | [place] [address] | | | | + + + + + + | Absolute | 4.01Comment: Testing | 1.90 - 7.40 | EXTERNAL | | | Segmented | performed at [facility], [address] | K/uL | LAB | | | Neutrophils | [address], | | | | | | [place] [address] | | | | + + + + + + | Absolute | 4.59 (H)Comment: Testing | 1.00 - 3.90 | EXTERNAL | | | Lymphocytes | performed at [facility], [address] | K/uL | LAB | | | | [address], | | | | | | [place] [address] | | | | + + + + + + | Absolute | 1.19 (H)Comment: Testing | 0.00 - 0.80 | EXTERNAL | | | Monocytes | performed at [facility], [address] | K/uL | LAB | | | | [address], | | | | | | [place] [address] | | | | + + + + + + | Absolute | 0.63 (H)Comment: Testing | 0.00 - 0.50 | EXTERNAL | | | Eosinophils | performed at [facility], [address] | K/uL | LAB | | | | [address], | | | | | | [place], [place] [address] | | | | + + + + + + | Absolute | 0.14 (H)Comment: Testing | 0.00 - 0.10 | EXTERNAL | | | Basophils | performed at [facility], [address] | K/uL | LAB | | | | [address], | | | | | | [place] [address] | | | | + + + + + + | RBC | NORMAL RBC MORPHComment: | | EXTERNAL | | | Morphology | Testing performed at | | LAB | | | | [facility], [address] | | | | | | [place] | | | | | | [address] | | | | + + + + + + | Differentia | 2+ GIANT PLTComment: | | EXTERNAL | | | l Comments | Testing performed at | | LAB | | | | [facility], [address] | | | | | | [place] | | | | | | [address] | | | | + + + [...] [place] | | | | | | [address] | | | | + + + + + + + + | Specimen | + + | Blood specimen | | (specimen) | + + + +---------+ + + | Performing | Address | City/State/Zipcode | Phone Number | | Organization | | | | + +---------+ + + | EXTERNAL LAB | | | | + +---------+ + + T4, Yola (01/16/2015 3:21 AM PDT) + + + + + + | Component | Value | Ref Range | Performed | Pathologist | | | | | At | Signature | + + + + + + | FREE T4 | 0.9Comment: Testing | 0.7 - 1.5 ng/dL | EXTERNAL | | | (REF) | performed at [facility], [address] | | LAB | | | | [address], | | | | | | [place] [address] | | | | + + + [...] | | | | | [place] [address] | | | | + + + [...] | | | | | [place] [address] | | | | + + + [...] | | | | | [place] [address] | | | | + + + + + + | K | 3.0 (L)Comment: Testing | 3.5 - 4.9 | EXTERNAL | | | | performed at [facility], [address] | mmol/L | LAB | | | | [address], | | | | | | [place] [address] | | | | + + + + + + | Cl | 104Comment: Testing | 99 - 109 mmol/L | EXTERNAL | | | | performed at [facility], [address] | | LAB | | | | [address], | | | | | | [place] [address] | | | | + + + + + + | CO2 | 22 (L)Comment: Testing | 23 - 32 mmol/L | EXTERNAL | | | | performed at [facility], [address] | | LAB | | | | [address], | | | | | | [place] [address] | | | | + + + + + + | Anion Gap | 15Comment: Testing | 5 - 20 mmol/L | EXTERNAL | | | | performed at [facility], [address] | | LAB | | | | [address], | | | | | | [place] [address] | | | | + + + + + + | Glucose, | 82Comment: Testing | 65 - 99 mg/dL | EXTERNAL | | | Fasting | performed at [facility], [address] | | LAB | | | | [address], | | | | | | [place] [address] | | | | + + + + + + | BUN | 13Comment: Testing | 8 - 25 mg/dL | EXTERNAL | | | | performed at [facility], [address] | | LAB | | | | [address], | | | | | | [place] [address] | | | | + + + + + + | Creatinine | 1.01 (H)Comment: Testing | 0.50 - 1.00 | EXTERNAL | | | | performed at [facility], [address] | mg/dL | LAB | | | | [address], | | | | | | [place] [address] | | | | + + + + + + | BUN/Creatin | 13Comment: Testing | | EXTERNAL | | | ine Ratio | performed at [facility], [address] | | LAB | | | [address], | | | | | | [place] [address] | | | | + + + + + + | Calcium | 7.7 (L)Comment: Testing | 8.5 - 10.5 | EXTERNAL | | | | performed at [facility], [address] | mg/dL | LAB | | | | [address], | | | | | | [place] [address] | | | | + + + + + + | Protein, | 7.1Comment: Testing | 6.3 - 8.2 g/dL | EXTERNAL | | | Total | performed at [facility], [address] | | LAB | | | | [address], | | | | | | [place] [address] | | | | + + + + + + | Albumin | 3.2 (L)Comment: Testing | 3.3 - 4.8 g/dL | EXTERNAL | | | | performed at [facility], [address] | | LAB | | | | [address], | | | | | | [place] [address] | | | | + + + + + + | Globulin | 3.9Comment: Testing | 1.3 - 4.9 g/dL | EXTERNAL | | | | performed at [facility], [address] | | LAB | | | | [address], | | | | | | [place] [address] | | | | + + + + + + | A/G Ratio | 0.8 (L)Comment: Testing | 1.0 - 2.4 | EXTERNAL | | | | performed at [facility], [address] | | LAB | | | | [address], | | | | | | [place] [address] | | | | + + + + + + | Bilirubin | 0.4Comment: Testing | 0.1 - 1.5 mg/dL | EXTERNAL | | | Total | performed at [facility], [address] | | LAB | | | [address], | | | | | | [place] [address] | | | | + + + + + + | ALP, | 76Comment: Testing | 35 - 115 U/L | EXTERNAL | | | External | performed at [facility], [address] | | LAB | | | | [address], | | | | | | [place] [address] | | | | + + + + + + | AST | 26Comment: Testing | 10 - 45 U/L | EXTERNAL | | | | performed at [facility], [address] | | LAB | | | | [address], | | | | | | [place] [address] | | | | + + + [...] | | | | | [place] [address] | | | | + + + [...] | | | | | [place] [address] | | | | + + + [...] | | | Urine | performed at [facility], [address] | | LAB | | | Random | [address], | | | | | | [place] [address] | | | | + + + [...] | Testing performed | | | at [facility], [address] [facility] [place] [address] | | + + + + +---------+ [...] 1945 | | | Performing Physician: Gil Martines | | | MD | | | [...] TV E/A Ratio: 1.21 | | | Picker/Puller: NEDRA Authenticated by: Gil Martines MD Report | | | Date/Time: 01-15-2015 09:12:05 | | + + + + ---+ | Procedure Note | + ---+ | Manuel Blake Conversion - 01/05/2019 4:32 AM PDT Patient Name: Gwyn ERNST of | | : 1945 Performing Physician: Gil Martines | | ------REPORT | | ADDENDED------INDICATIONS abnormal [...] | Index (A-L): 40.51 ml/m2LAAs A2C: 24.56 [id number] A-L A2C: 76.32 mlLAESV MOD A2C: | | 73.52 mlLALs A2C: 6.71 cmLAAs A4C: 24.96 [id number] A-L A4C: 79.86 mlLAESV MOD A4C: | | 77.20 mlLALs A4C: 6.62 cmAo Diam: 2.73 cmAV Cusp: 2.27 cmLA Diam: 4.29 | | cmLA/Ao: 1.57D-E Excursion: 2.11 cmE-F Woods: 0.09 m/sEPSS: 0.48 cmHR: 77.41 | | BPMAV maxP.05 mmHgAV meanP.21 mmHgAV Vmax: 1.73 m/Sorin Vmean: 1.25 m/Sorin | | VTI: 34.68 cmAVA Vmax: 2.07 cm2AVA (VTI): 1.85 nz7FUBX Dopp: 2.60 l/imiu7DZAK | | Dopp: 5.05 l/minHR: 78.81 BPMLVOT [...] 0.80 | | m/sTV E/A Ratio: 1.21 Picker/Puller: GDAuthenticated by: Gil PURDYdennis | | Date/Time: 01-15-2015 [...] |TV E/A Ratio: 1.21 | | | |Picker/Puller: GD | |Authenticated by: Gil Martines MD | |Report Date/Time: 01-15-2015 09:12:05 | [...] | EXTERNAL LAB | | performed at [facility];[address] [facility];[place] [address] 027 NAP1 BI | | | 027 NAP1 BI PRESUMPTIVE NEGATIVE | | | Detection of 027 NAP1 BI strains of C. difficile is presumptive and | | | for epidemiological purposes and not intended to guide or monitor | | | treatment for C. difficile infections. Testing performed at [facility] | | | [facility];[place] [address] | | + + + + +---------+ [...] | | | COMPLEMENT | performed at [facility], [address] | | LAB | | | | [address], | | | | | | [place] [address] | | | | + + + + + + | Complement | 19.4Comment: Testing | 10 - 40 mg/dL | EXTERNAL | | | Comp 4 | performed at [facility], [address] | | LAB | | | | [address], | | | | | | [place] [address] | | | | + + + [...] | | | | | | ACUTE [place] Testing | | | | | | performed at [facility];[address] | | | | | | [facility];[place], [place] | | | | | | [address] | | | | + + + [...] K/uL | LAB | | | | [facility];[address] | | | | | | [place] [address] | | | | + + + + + + | RED CELL | 3.27 (L)Comment: Testing | 3.70 - 5.10 | EXTERNAL | | | COUNT | performed at [facility];[address] | M/uL | LAB | | | | [address];[place] | | | | | | [address] | | | | + + + + + + | Hgb | 11.2 (L)Comment: Testing | 11.3 - 15.5 | EXTERNAL | | | | performed at [facility];[address] | g/dL | LAB | | | | [address];[place] | | | | | | [address] | | | | + + + + + + | Hematocrit, | 34.4Comment: Testing | 34.0 - 46.0 % | EXTERNAL | | | POC | performed at [facility];[address] | | LAB | | | | [address];[place] | | | | | | [address] | | | | + + + + + + | MCV | 105.2 (H)Comment: | 80.0 - 100.0 fl | EXTERNAL | | | | Testing performed at | | LAB | | | | [facility];[address];[place] [address] | | | | + + + + + + | MCH | 34.2 (H)Comment: Testing | 27.0 - 34.0 pg | EXTERNAL | | | | performed at [facility];[address] | | LAB | | | | [address];[place] | | | | | | [address] | | | | + + + + + + | MCHC | 32.5Comment: Testing | 32.0 - 35.5 | EXTERNAL | | | | performed at [facility];[address] | g/dL | LAB | | | | [address];[place] | | | | | | [address] | | | | + + + + + + | RDW-CV | 50.3Comment: Testing | 37 - 53 fl | EXTERNAL | | | | performed at [facility];[address] | | LAB | | | | [address];[place] | | | | | | [address] | | | | + + + + + + | Platelet | 160Comment: Testing | 150 - 400 K/uL | EXTERNAL | | | Count | performed at [facility];[address] | | LAB | | | Plasma | [address];[place] | | | | | | [address] | | | | + + + + + + | MPV | 11.1Comment: Testing | fl | EXTERNAL | | | | performed at [facility];[address] | | LAB | | | | [address];[place] | | | | | | [address] | | | | + + + + + + | Differentia | AUTOMATEDComment: | | EXTERNAL | | | l Type | Testing performed at | | LAB | | | | [facility];[address];[place] [address] | | | | + + + + + + | % Segmented | 50.65Comment: Testing | % | EXTERNAL | | | | performed at [facility];[address] | | LAB | | | Neutrophils | [address];[place] | | | | | | [address] | | | | + + + + + + | % | 37.06Comment: Testing | % | EXTERNAL | | | Lymphocytes | performed at [facility];[address] | | LAB | | | | [address];[place] | | | | | | [address] | | | | + + + + + + | % Monocytes | 9.60Comment: Testing | % | EXTERNAL | | | | performed at [facility];[address] | | LAB | | | | [address];[place] | | | | | | [address] | | | | + + + + + + | % | 1.30Comment: Testing | % | EXTERNAL | | | Eosinophils | performed at [facility];[address] | | LAB | | | | [address];[place] | | | | | | [address] | | | | + + + + + + | % Basophils | 1.39Comment: Testing | % | EXTERNAL | | | | performed at [facility];[address] | | LAB | | | | [address];[place] | | | | | | [address] | | | | + + + + + + | Absolute | 6.64Comment: Testing | 1.90 - 7.40 | EXTERNAL | | | Segmented | performed at [facility];[address] | K/uL | LAB | | | Neutrophils | [address];[place] | | | | | | [address] | | | | + + + + + + | Absolute | 4.86 (H)Comment: Testing | 1.00 - 3.90 | EXTERNAL | | | Lymphocytes | performed at [facility];[address] | K/uL | LAB | | | | [address];[place] | | | | | | [address] | | | | + + + + + + | Absolute | 1.26 (H)Comment: Testing | 0.00 - 0.80 | EXTERNAL | | | Monocytes | performed at [facility];[address] | K/uL | LAB | | | | [address];[place] | | | | | | [address] | | | | + + + + + + | Absolute | 0.17Comment: Testing | 0.00 - 0.50 | EXTERNAL | | | Eosinophils | performed at [facility];[address] | K/uL | LAB | | | | [address];[place] | | | | | | [address] | | | | + + + + + + | Absolute | 0.18 (H)Comment: Testing | 0.00 - 0.10 | EXTERNAL | | | Basophils | performed at [facility];[address] | K/uL | LAB | | | [...] EXTERNAL | | | | performed at [facility];[address] | | LAB | | | | [address];[place], [place] | | | | | | [address] | | | | + + + [...] LAB | | | | performed at [facility];[address] | | | | | | [address];[place], [place] | | | | | | [address] | | | | + + + [...] EXTERNAL | | | | performed at [facility];[address] | mmol/L | LAB | | | | [address];[place] | | | | | | [address] | | | | + + + + + + | K | 3.7Comment: SLT | 3.5 - 4.9 | EXTERNAL | | | | HEMOLYSISTesting | mmol/L | LAB | | | | performed at [facility];[address] | | | | | | [address];[place] | | | | | | [address] | | | | + + + + + + | Cl | 110 (H)Comment: Testing | 99 - 109 mmol/L | EXTERNAL | | | | performed at [facility];[address] | | LAB | | | | [address];[place] | | | | | | [address] | | | | + + + + + + | CO2 | 24Comment: Testing | 23 - 32 mmol/L | EXTERNAL | | | | performed at [facility];[address] | | LAB | | | | [address];[place] | | | | | | [address] | | | | + + + + + + | Anion Gap | 13Comment: Testing | 5 - 20 mmol/L | EXTERNAL | | | | performed at [facility];[address] | | LAB | | | | [address];[place] | | | | | | [address] | | | | + + + + + + | Glucose, | 109 (H)Comment: Testing | 65 - 99 mg/dL | EXTERNAL | | | Fasting | performed at [facility];[address] | | LAB | | | | [address];[place] | | | | | | [address] | | | | + + + + + + | BUN | 24Comment: Testing | 8 - 25 mg/dL | EXTERNAL | | | | performed at [facility];[address] | | LAB | | | | [address];[place] | | | | | | [address] | | | | + + + + + + | Creatinine | 1.7 (H)Comment: Testing | 0.50 - 1.00 | EXTERNAL | | | | performed at [facility];[address] | mg/dL | LAB | | | | [address];[place] | | | | | | [address] | | | | + + + + + + | BUN/Creatin | 14Comment: Testing | | EXTERNAL | | | ine Ratio | performed at [facility];[address] | | LAB | | | | [address];[place] | | | | | | [address] | | | | + + + + + + | Calcium | 7.4 (L)Comment: Testing | 8.5 - 10.5 | EXTERNAL | | | | performed at [facility];[address] | mg/dL | LAB | | | | [address];[place] | | | | | | [address] | | | | + + + + + + | Protein, | 7.0Comment: Testing | 6.3 - 8.2 g/dL | EXTERNAL | | | Total | performed at [facility];[address] | | LAB | | | | [address];[place] | | | | | | [address] | | | | + + + + + + | Albumin | 2.6 (L)Comment: Testing | 3.3 - 4.8 g/dL | EXTERNAL | | | | performed at [facility];[address] | | LAB | | | | [address];[place] | | | | | | [address] | | | | + + + + + + | Globulin | 4.3Comment: Testing | 1.3 - 4.9 g/dL | EXTERNAL | | | | performed at [facility];[address] | | LAB | | | | [address];[place] | | | | | | [address] | | | | + + + + + + | A/G Ratio | 0.6 (L)Comment: Testing | 1.0 - 2.4 | EXTERNAL | | | | performed at [facility];[address] | | LAB | | | | [address];[place] | | | | | | [address] | | | | + + + + + + | Bilirubin | 0.4Comment: Testing | 0.1 - 1.5 mg/dL | EXTERNAL | | | Total | performed at [facility];[address] | | LAB | | | | [address];[place] | | | | | | [address] | | | | + + + + + + | ALP, | 92Comment: Testing | 35 - 115 U/L | EXTERNAL | | | External | performed at [facility];[address] | | LAB | | | | [address];[place] | | | | | | [address] | | | | + + + + + + | AST | 35Comment: SLT | 10 - 45 U/L | EXTERNAL | | | | HEMOLYSISTesting | | LAB | | | | performed at [facility];[address] | | | | | | [address];[place] | | | | | | [address] | | | | + + + + + + | ALT | 29Comment: Testing | 10 - 65 U/L | EXTERNAL | | | | performed at [facility];[address] | | LAB | | | | [address];[place] | | | | | | [address] | | | | + + + [...] | | | | | | at [facility];[address] [place] [address] | | | | | | [facility];[place] [address] | | | | + + + [...] EXTERNAL | | | | performed at [facility];[address] | uIU/mL | LAB | | | | [address];[place], [place] | | | | | | [address] | | | | + + + [...] | | | | | | ACUTE [place] Testing | | | | | | performed at [facility] | | | | | | [facility];[place], [place] | | | | | | [address] | | | | + + + [...] GROWTH | | | Testing performed at [facility], | | | [address] [place] [address] | | + + + + +---------+ [...] | | study for comparison: None FINDINGS: Barn[employer] Groom 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 | | | degenerative [...] study | | for comparison: None FINDINGS: [place] Groom 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 degenerative changes of the [...] NEGATIVE Testing | | | performed at [facility];[address] [facility];[place] [address] | | + + + + +---------+ [...] | | | | | | at [facility];[address] [place] [address] | | | | | | [facility];[place] [address] | | | | + + + [...] EXTERNAL | | | | performed at [facility];[address] | | LAB | | | | [facility];[place], [place] | | | | | | [address] | | | | + + + [...] EXTERNAL | | | | performed at [facility] | | LAB | | | | [address];[place] | | | | | | [address] | | | | + + + [...] EXTERNAL | | | | performed at [facility];888 | mmol/L | LAB | | | | [address];[place], [place] | | | | | | [address] | | | | + + + [...] [address], | | | | | | [place] [address] | | | | + + [...] | | | | [facility], [address] [facility] | | | | | | [place], [place] | | | | | | [address] | | | | + + + [...] | | | | | + + Uric Acid (01/14/2015 3:49 PM PDT) + + + + + + | Component | Value | Ref Range | Performed | Pathologist | | | | | At | Signature | + + + + + + | Uric Acid | 9.0 (H)Comment: Testing | 2.2 - 7.1 mg/dL | EXTERNAL | | | | performed at [facility];[address] | | LAB | | | | [address];[place] | | | | | | [address] | | | | + + + [...] EXTERNAL | | | | performed at [facility];[address] | | LAB | | | | [address];[place], [place] | | | | | | [address] | | | | + + + [...] LAB | | | | performed at [facility] | | | | | | [address];[place], [place] | | | | | | [address] | | | | + + + [...] EXTERNAL | | | | performed at [facility];[address] | | LAB | | | | [address];[place] | | | | | | [address] | | | | + + + [...] EXTERNAL | | | | performed at [facility];[address] | | LAB | | | | [address];[place] | | | | | | [address] | | | | + + + [...] K/uL | LAB | | | | [facility];[address] | | | | | | [address];[place] [address] | | | | + + + + + + | RED CELL | 4.17Comment: Testing | 3.70 - 5.10 | EXTERNAL | | | COUNT | performed at [facility];[address] | M/uL | LAB | | | | [address];[place] | | | | | | [address] | | | | + + + + + + | Hgb | 14.6Comment: Testing | 11.3 - 15.5 | EXTERNAL | | | | performed at [facility];888 | g/dL | LAB | | | | [address];[place] | | | | | | [address] | | | | + + + + + + | Hematocrit, | 42.7Comment: Testing | 34.0 - 46.0 % | EXTERNAL | | | POC | performed at [facility];[address] | | LAB | | | | [address];[place] | | | | | | [address] | | | | + + + + + + | MCV | 102.3 (H)Comment: | 80.0 - 100.0 fl | EXTERNAL | | | | Testing performed at | | LAB | | | | [facility];[address];[place] [address] | | | | + + + + + + | MCH | 35.0 (H)Comment: Testing | 27.0 - 34.0 pg | EXTERNAL | | | | performed at [facility];[address] | | LAB | | | | [address];[place] | | | | | | [address] | | | | + + + + + + | MCHC | 34.2Comment: Testing | 32.0 - 35.5 | EXTERNAL | | | | performed at [facility];888 | g/dL | LAB | | | | [address];[place] | | | | | | [address] | | | | + + + + + + | RDW-CV | 49.9Comment: Testing | 37 - 53 fl | EXTERNAL | | | | performed at [facility];[address] | | LAB | | | | [address];[place] | | | | | | [address] | | | | + + + + + + | Platelet | 209Comment: Testing | 150 - 400 K/uL | EXTERNAL | | | Count | performed at [facility];[address] | | LAB | | | Plasma | [address];[place] | | | | | | [address] | | | | + + + + + + | MPV | 11.1Comment: Testing | fl | EXTERNAL | | | | performed at [facility];[address] | | LAB | | | | [address];[place] | | | | | | [address] | | | | + + + + + + | RBC | 1+Comment: GIANT | | EXTERNAL | | | Morphology | PLATELETS1+MACROTesting | | LAB | | | | performed at [facility];[address] | | | | | | [address];[place] | | | | | | [address] | | | | | |Testing performed at [facility] [address];[place] [address] | | | | | | | | | | + + + + + + | Differentia | MANUALComment: Testing | | EXTERNAL | | | l Type | performed at [facility] | | LAB | | | | [address];[place] | | | | | | [address] | | | | + + + + + + | Segmented | 58Comment: Testing | % | EXTERNAL | | | Neutrophils | performed at [facility] | | LAB | | | Manual | [address];[place] | | | | | | [address] | | | | + + + + + + | Lymphocytes | 32Comment: Testing | % | EXTERNAL | | | Manual | performed at [facility];[address] | | LAB | | | | [address];[place] | | | | | | [address] | | | | + + + + + + | Monocytes | 9Comment: Testing | % | EXTERNAL | | | Manual | performed at [facility];[address] | | LAB | | | | [address];[place] | | | | | | [address] | | | | + + + + + + | Eosinophils | 1Comment: Testing | % | EXTERNAL | | | Manual | performed at [facility];[address] | | LAB | | | | [address];[place] | | | | | | [address] | | | | + + + + + + | Absolute | 9.39 (H)Comment: Testing | 1.90 - 7.40 | EXTERNAL | | | Neutrophils | performed at [facility] | K/uL | LAB | | | | [address];[place] | | | | | | [address] | | | | + + + + + + | Absolute | 5.18 (H)Comment: Testing | 1.00 - 3.90 | EXTERNAL | | | Lymphocytes | performed at [facility] | K/uL | LAB | | | | [address];[place] | | | | | | [address] | | | | + + + + + + | Absolute | 1.46 (H)Comment: Testing | 0.00 - 0.80 | EXTERNAL | | | Monocytes | performed at [facility];[place] | K/uL | LAB | | | | [address];[place] | | | | | | [address] | | | | + + + + + + | Absolute | 0.16Comment: Testing | 0.00 - 0.50 | EXTERNAL | | | Eosinophils | performed at [facility];[place] | K/uL | LAB | | | | [address];[place] | | | | | | [address] | | | | + + + + + + | Na | 140Comment: Testing | 135 - 143 | EXTERNAL | | | | performed at [facility] | mmol/L | LAB | | | | [address];[place] | | | | | | [address] | | | | + + + + + + | K | 2.8 (L)Comment: Testing | 3.5 - 4.9 | EXTERNAL | | | | performed at [facility] | mmol/L | LAB | | | | [address];[place] | | | | | | [address] | | | | + + + + + + | Cl | 100Comment: Testing | 99 - 109 mmol/L | EXTERNAL | | | | performed at [facility];[address] | | LAB | | | | [address];[place] | | | | | | [address] | | | | + + + + + + | CO2 | 29Comment: Testing | 23 - 32 mmol/L | EXTERNAL | | | | performed at [facility];[address] | | LAB | | | | [address];[place] | | | | | | [address] | | | | + + + + + + | Anion Gap | 14Comment: Testing | 5 - 20 mmol/L | EXTERNAL | | | | performed at [facility];[place] | | LAB | | | | [address];[place] | | | | | | [address] | | | | + + + + + + | Glucose, | 107 (H)Comment: Testing | 65 - 99 mg/dL | EXTERNAL | | | Fasting | performed at [facility];[place] | | LAB | | | | [address];[place] | | | | | | [address] | | | | + + + + + + | BUN | 28 (H)Comment: Testing | 8 - 25 mg/dL | EXTERNAL | | | | performed at [facility];[place] | | LAB | | | | [address];[place] | | | | | | [address] | | | | + + + + + + | Creatinine | 2.4 (H)Comment: Testing | 0.50 - 1.00 | EXTERNAL | | | | performed at [facility] | mg/dL | LAB | | | | [address];[place] | | | | | | [address] | | | | + + + + + + | BUN/Creatin | 12Comment: Testing | | EXTERNAL | | | ine Ratio | performed at [facility];[place] | | LAB | | | | [address];[place] | | | | | | [address] | | | | + + + + + + | Calcium | 8.1 (L)Comment: Testing | 8.5 - 10.5 | EXTERNAL | | | | performed at [facility] [place] | mg/dL | LAB | | | | [address];[place] | | | | | | [address] | | | | + + + + + + | Protein, | 9.3 (H)Comment: Testing | 6.3 - 8.2 g/dL | EXTERNAL | | | Total | performed at [facility] [place] | | LAB | | | | [address];[place] | | | | | | [address] | | | | + + + + + + | Albumin | 3.3Comment: Testing | 3.3 - 4.8 g/dL | EXTERNAL | | | | performed at [facility] [place] | | LAB | | | | [address];[place] | | | | | | [address] | | | | + + + + + + | Globulin | 6.0 (H)Comment: Testing | 1.3 - 4.9 g/dL | EXTERNAL | | | | performed at [facility] [place] | | LAB | | | | [address];[place] | | | | | | [address] | | | | + + + + + + | A/G Ratio | 0.5 (L)Comment: Testing | 1.0 - 2.4 | EXTERNAL | | | | performed at [facility] [place] | | LAB | | | | [address];[place] | | | | | | [address] | | | | + + + + + + | Bilirubin | 0.4Comment: Testing | 0.1 - 1.5 mg/dL | EXTERNAL | | | Total | performed at [facility] [place] | | LAB | | | | [address];[place] | | | | | | [address] | | | | + + + + + + | ALP, | 129 (H)Comment: Testing | 35 - 115 U/L | EXTERNAL | | | External | performed at [facility] [place] | | LAB | | | | [address];[place] | | | | | | [address] | | | | + + + + + + | AST | 39Comment: Testing | 10 - 45 U/L | EXTERNAL | | | | performed at [facility] [place] | | LAB | | | | [address];[place] | | | | | | [address] | | | | + + + + + + | ALT | 38Comment: Testing | 10 - 65 U/L | EXTERNAL | | | | performed at [facility] [place] | | LAB | | | | [address];[place] | | | | | | [address] | | | | + + + [...] | | | | | | at [facility] [place];[address] | | | | | | [address];[place] [address] | | | | + + + + + + | CK, Total | 151Comment: Testing | 30 - 240 U/L | EXTERNAL | | | | performed at [facility] [place] | | LAB | | | | [address];[place] | | | | | | [address] | | | | + + + [...] | | | | | performed at [facility] [place];[address] | | | | | | [address];[place] | | | | | | [address] | | | | + + + + + + | aPTT, | 26Comment: Testing | 23 - 32 seconds | EXTERNAL | | | Patient | performed at [facility] [place];[address] | | LAB | | | | [address];[place] | | | | | | [address] | | | | + + + + + + | CK-MB | 3.9 (H)Comment: Testing | 0.5 - 3.6 ng/mL | EXTERNAL | | | | performed at [facility] [place];[address] | | LAB | | | | [address];[place] | | | | | | [address] | | | | + + + [...] | | | | | | ACUTE [place] Testing | | | | | | performed at [facility] [place] | | | | | | [address];[place] | | | | | | [address] | | | | + + + [...]
--- OUTSIDE RECORDS SUMMARY | ~2019-05-06 | XMS | Encounter Summary ---
Demographics + + + | Address | [address] | | | [place] [address] | + + + | Home Phone [...] Team Providers + +------+ + | Care Income Tax Return Preparer Name | Role | Phone | + [...] [address] | | | | | [place], [place] | [place], [place] | | | | | [address] | [phone] | | | | | [phone] | | | +--------+ + + + [...]
--- OUTSIDE RECORDS SUMMARY | ~2019-05-06 | XMS | Encounter Summary ---
Demographics + + + | Address | [address] | | | [place] [address] | + + + | Home Phone [...] Team Providers + +------+ + | Care Sea Captain Name | Role | Phone | + +------+ + | Yovani Santana MD | PCP | | + +------+ + Encounter Details +--------+ + + + + | Date | Type | Department | Care Team | Description | +--------+ + + + + | 01/14/ | Hospital | [facility] | Jennifer Hartman MD | Near syncope; | | 2015 - | Encounter | [facility] | [address] | Elevated troponin; | | | | CARE FLOOR [address] | [place] [address] | Non-STEMI (non-ST | | 01/19/ | | [address] | [phone] | elevated myocardial | | 2015 | | [place], [place] | | infarction) ([facility]); | | | | [address] | | CKD (chronic kidney | | | | [phone] | | disease), | | | | [...] Date of Service: 01/19/15 0753 Status: Signed Molecular Modeler: Emma Hardy MD (Physician) Related Notes: Original Note by Emma Hardy MD (Physician) filed at 01/19/15 0800 [facility] Service: Hospitalist Physician Discharge Summary Patient [...] history of chronic pain, on chronic methadone, mechanic recovery denny kidney disease, stage III, presented with generalized weakness, acute renal failure, and elevate troponin. The patient was taken off methadone about 3 weeks prior to admission. Pre vious creatinine was 1.38 and the patient was presented at [facility] in [place] , was found to have elevated troponin of 0.55 and noted to have creatinine of 2.4 and leukoc ytosis and was transferred for onx-QL-ybuzdvmky NC. HOSPITAL COURSE The patient was admitted with ntb-ZN-cnmxpntgx NC. Cardiology consult was obtained. She was started [...] lipid-lowerin g therapy. The patient also has bbdfw-aw-lxaoaut kidney disease, stage III. Acute renal fail [...] to have severe protein calorie malnutrition and networker was consulted. Her blood pressures remain stable. 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 You may get the following [...] summary. This entry has been created using CyberSense Speech Recognition software and Hitch. The entry has been reviewed and there [...] Date of Service: 01/19/15 1300 Status: Signed Molecular Modeler: Shaista Lin RN (Registered Nurse) Pt discharged via wheel chair on 2 L of oxygen. To [facility] in [place]. Pt alert and o rientedX4. onver alessandro Transaction, Provider Unknown - 01/19/2015 8:20 AM PDT Case Management by PHUONG Roman at 01/19/15819 Author: PHUONG Roman Service: (none) Author Type: Design Chief Filed: 01/19/15819 Date of Service: 01/19/15819 Status: Signed Molecular Modeler: PHUONG Roman (Design Chief) Disposition: [facility] Transportation: facility van All orders, [...] 0625 Date of Service: 01/19/15412 Status: Signed Molecular Modeler: Yady Singh RN (Registered Nurse) Patient resting quietly all night. Medicated once for all over general pain. No further com plaints. VSS. onver alessandro Transaction, Provider Unknown - 01/18/2015 3:21 PM PDT Case Management by PHUONG Roman at 01/18/15 1521 Author: PHUONG Roman Service: (none) Author Type: Design Chief Filed: 01/18/15 1521 Date of Service: 01/18/15 1521 Status: Signed Molecular Modeler: PHUONG Roman (Design Chief) spoke w/ Will at [facility] who reports they can accept and transport pt tomorrow AM. PHUONG Roman osangela Kirk MD - 01/18/2015 3:10 PM PDT Progress Notes by Rosangela Steinberg MD at 01/18/15 1510 Author: Rosangela Steinberg MD Service: Infectious Disease Author Type: Physician Filed: 01/18/15 3764 Date of Service: 01/18/15 1510 Status: Signed Molecular Modeler: Rosangela Steinberg MD (Physician) [facility] Service: Infectious Disease Progress Note Hospital [...] diarrhea. Had initially presented to [facility] in [place] with similar complaints. Was foun d to have an elevated troponin. She was mainly admitted as a non-STEMI. Found to have a leuk ocytosis. Since patient is immunocompromised, she was started empirically on IV ceftriaxone. Chest x-ray showed no infiltrate. Patient denies any recent fevers or chills. She went to [facility] mainly becau se of syncope. Prior [...] extraluminal fluid collection abdomen pelvis without contrast [[id number]] Impression 1. Hypoinflated chest, but no evident infiltrate chest 1 view [[id number]] Impression 1. Indication for study and thus [...] 1445 Date of Service: 01/18/15748 Status: Signed Molecular Modeler: Emma Hardy MD (Physician) [facility] Service: Hospitalist Progress Note Hospital Day: [...] (HCC) ASSESSMENT & PLAN 1. Non-ST elevation NC. Possible demand ischemia. Will schedule for nuclear [...] schrader 8. Deconditioning Continue physical therapy and long-term facility placement versus home PT 9. Chronic [...] AM This entry has been created using CyberSense Speech Recognition software and Hitch. The entry has been reviewed and there may still exist sound alike word errors. onversion Trans action, Provider Unknown - 01/18/2015 5:16 AM PDT Nurse Progress Note by Yady Singh RN at 01/18/15515 Author: Yady Singh RN Service: (none) Author Type: Registered Nurse Filed: 01/18/152104 Date of Service: 01/18/15515 Status: Signed Molecular Modeler: Yady Singh RN (Registered Nurse) Pt taken [...] Date of Service: 01/17/15 162 Status: Signed Molecular Modeler: Jose Maria Espinal MD (Physician) Related Notes: Original Note by Jose Maria Espinal MD (Physician) filed at 01/17/152012 [facility] Service: Hospitalist Progress Note Pt: Cole Ernst AGE/SEX: 69 y.o. female : 1945 ROOM: [address] [place] [address] History of Present Illness: " The patient [...] who called EMS. Patient was taken to [facility] in [place]. Susie ent was noted to have a [...] Patient had borderline blood pressure. While at [facility] with systolic in the low 90s. [...] CT done several days ago while in [place]. She also stat es that her vomiting and diarrhea have significantly improved. She denies any fevers, hemat emesis, melena, bright red blood per rectum, hematuria, dysuria, she denies any leg pain or swelling. No palpitations. She states she does have a history of "kidney disease" and was told that it was secondary to cyclosporine. However, she is not seen kidney specialist [facility] e her liver transplant.".....per admitting [...] contrast. Prior study for comparison: None FINDINGS: Brake Liner 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 deg enerative changes of [...] LA/Ao: 1.57 D-E Excursion: 2.11 cm E-F Whitman: 0.09 m/s EPSS: 0.48 cm HR: 77.41 [...] TV A Billy: 0.66 m/s TV Dec Whitman: 4.36 m/s2 TV Dec Time: 184.41 ms TV E Billy: 0.80 m/s TV E/A Rat io: 1.21 Journeyman Carpenter: NEDRA Authenticated by: Gil Martines MD Report [...] nutritional supplements as recommend ed by nutrition service/networker. Jose Maria Espinal MD 01/17/2015 4:29 PM onversion Transa ction, Provider Unknown - 01/17/2015 3:15 PM PDT Case Management by PHUONG Sandhu at 01/17/15 1515 Author: PHUONG Sandhu Service: (none) Author Type: Radiator Tester Filed: 01/17/15 1518 Date of Service: 01/17/155 Status: Signed Molecular Modeler: PHUONG Sandhu (Radiator Tester) 01/17/15 1500 Discharge Planning Evaluation Admitting Diagnosis Near syncope, elevated tropinin, non-stemi, CKD Anticipated Disposition Facility Type senior living facility Medicare Important Message (MEREDITH) Given Senior Living [facility] Other (comment) ([facility]) DAY CARE HOME PROVIDER met with Pt for discharge planning, on board with going to [facility] when medically ready. DAY CARE HOME PROVIDER p/c to [facility] - will accept Pt when medically ready. [facility] (73 miles) [address] [place] [address], [place] Lump Roller: Will DCP: [facility] Transportation: [facility] Facility Van - Lump Roller: Will [phone] Medicare important message signed and copy in chart LUIS FOUNTAIN, Design Chief [phone] cell Rosangela Zavala MD - 01/17/2015 1:11 PM PDT Progress Notes by Rosangela Steinberg MD at 01/17/15 1311 Author: Rosangela Steinberg MD Service: Infectious Disease Author Type: Physician Filed: 01/17/15 8097 Date of Service: 01/17/15 1311 Status: Signed Molecular Modeler: Rosangela Steinberg MD (Physician) [facility] Service: Infectious Disease Progress Note Hospital [...] diarrhea. Had initially presented to [facility] in [place] with similar complaints. Was foun d to have an elevated troponin. She was mainly admitted as a non-STEMI. Found to have a leuk ocytosis. Since patient is immunocompromised, she was started empirically on IV ceftriaxone. Chest x-ray showed no infiltrate. Patient denies any recent fevers or chills. She went to [facility] mainly becau se of syncope. Prior [...] extraluminal fluid collection abdomen pelvis without contrast [[id number]] Impression 1. Hypoinflated chest, but no evident infiltrate chest 1 view [[id number]] Impression 1. Indication for study and thus [...] the or iginal. Progress Notes by Juju Riggnis MD at 01/16/152127 Author: Juju Riggins MD Service: Cardiology Author Type: Physician Filed: 01/16/152137 Date of Service: 01/16/152127 Status: Signed Molecular Modeler: Juju Riggins MD (Physician) [facility] Service: Cardiology Progress Note Hospital Day: [...] Author: PHUONG Sandhu Service: (none) Author Type: Radiator Tester Filed: 01/16/156 Date of Service: 01/16/151642 Status: Signed Molecular Modeler: PHUONG Sandhu (Radiator Tester) 01/16/15 1600 Discharge Planning Evaluation Admitting Diagnosis Near syncope, elevated tropinin, non-stemi, CKD Anticipated Disposition Facility Type senior living facility Senior Living Facility Other (comment) ([facility]) PHUONG received p/c from Will, admissions at [facility], states they are willi ng to accept Pt to their Senior Living Facility, states their house physician will not pre scribe Methadone. Will states she will start authorization process with [employer] who is Managing the Medicare benefits. Will states the first 20 days are covered at 100% then day 21 will be $100.00 a day. DCP: [facility] or Home LUIS FOUNTAIN,Design Chief [phone] cell Jose Maria Grimes MD - 01/16/2015 11:29 AM PDTFormatting of this note might be different from th e original. Progress Notes by Jose Maria Espinla MD at 01/16/15 1129 Author: Jose Maria Espinal MD Service: Hospitalist Author Type: Physician Filed: 01/17/15 1149 Date of Service: 01/16/15 1129 Status: Signed Molecular Modeler: Jose Maria Espinal MD (Physician) Related Notes: Original Note by Jose Maria Espinal MD (Physician) filed at 01/16/15 1137 [facility] Service: Hospitalist Progress Note Pt: Cole Ernst AGE/SEX: 69 y.o. female : 1945 ROOM: [address] [place] [address] History of Present Illness: " The patient [...] who called EMS. Patient was taken to [facility] in [place]. Susie ent was noted to have a [...] Patient had borderline blood pressure. While at [facility] with systolic in the low 90s. [...] CT done several days ago while in [place]. She also stat es that her vomiting and diarrhea have significantly improved. She denies any fevers, hemat emesis, melena, bright red blood per rectum, hematuria, dysuria, she denies any leg pain or swelling. No palpitations. She states she does have a history of "kidney disease" and was told that it was secondary to cyclosporine. However, she is not seen kidney specialist [facility] e her liver transplant.".....per admitting [...] contrast. Prior study for comparison: None FINDINGS: Brake Liner 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 deg enerative changes of [...] LA/Ao: 1.57 D-E Excursion: 2.11 cm E-F Whitman: 0.09 m/s EPSS: 0.48 cm HR: 77.41 [...] TV A Billy: 0.66 m/s TV Dec Whitman: 4.36 m/s2 TV Dec Time: 184.41 ms TV E Billy: 0.80 m/s TV E/A Rat io: 1.21 Journeyman Carpenter: NEDRA Authenticated by: Gil Martines MD Report [...] Date of Service: 01/16/15 1102 Status: Signed Molecular Modeler: Natalio Benito PT (Physical Therapist) 01/16/15 1102 PT Last Visit PT Received On 01/16/15 Reason for Treatment Deconditioning;Other (comment) (NSTEMI; Syncope) Requires PT Follow Up Awaiting tx order Follow up PT Only? No PT Eval/Reassessment Date 01/16/15 Assistance Required 1 person Track Helper Needed No Home Environment Type of Home Apartment ground level Home Exterior Layout Entry steps none Home Interior Layout Lives on main level with bedroom/bathroom Bathroom Shower/Tub Tub/shower unit Bathroom Toilet Standard Bathroom Equipment Shower stool;Grab bars in shower/bath;Grab bars outside of shower/bath Bathroom Accessibility Other (Comment) (Small bathroom) Home Equipment Walker 4 wheeled;Cane single point Prior Function Level of [place] Modified independent with functional mobility;Modified independent wi [...] (sitting in recliner w/ call light and MEDICARE COORDINATOR present) Restraints Initially in Place No Precautions [...] Eval/Reassessment Date 01/16/15 Assistance Required 1 person Track Helper Needed No Precautions Other Precautions Fall Risk [...] support. Patient in the recli ner w/ MEDICARE COORDINATOR present at end of session, no new [...] (sitting in recliner w/ call light and MEDICARE COORDINATOR present) Restraints Initially in Place No Plan [...] Date of Service: 01/16/15 1045 Status: Signed Molecular Modeler: Nupur Tadeo MD (Physician) [facility] Service: Infectious Disease Progress Note Hospital [...] vomiting and diarrhea. Had initially presented to [facility] in [place] with similar complaints. Was found to have an elevated troponin . She was mainly admitted as a non-STEMI. Found to have a leukocytosis. Since patient is imm unocompromised, she was started empirically on IV ceftriaxone. Chest x-ray showed no infiltrate. Patient denies any recent fevers or chills. She went to [facility] mainly becau se of syncope. Prior [...] Author: PHUONG Sandhu Service: (none) Author Type: Radiator Tester Filed: 01/16/15 1042 Date of Service: 01/16/15 1030 Status: Signed Molecular Modeler: PHUONG Sandhu (Radiator Tester) 01/16/15 1000 Discharge Planning Evaluation Admitting Diagnosis Near syncope, elevated tropinin, non-stemi, CKD Anticipated Disposition Facility Type senior living facility DAY CARE HOME PROVIDER met with Pt and discussed discharge planning, states she has concerns returning home at this time, as Pt resides alone. DAY CARE HOME PROVIDER discussed rehab options, SNF vs Home Health vs Outpatient PT. Pt states her sister (Annie Tipton [phone] cell) assists with IADLs as Pt does not polo ojeda. Pt states she resides alone and has been doing ADLs on her own. Pt states she uses a 4WW with seat at home, then uses a cane when out of the home, stated, "I am a little vain" abou t using the 4WW in public. Pt is interested in [facility] [place], due to close proximity to her home. DAY CARE HOME PROVIDER faxe d SNF referral. Pt is a [...] need SNF Anticipated DCP: Pending placement at [facility] [place] LUIS FOUNTAIN, Design Chief [phone] cell Luisito Mejía - 01/16/2015 9:12 AM PDTFormatting of this note might be different from the or iginal. Progress Notes by Luisito Thomas MD at 01/16/15911 Author: Luisito Thomas MD Service: Nephrology Author Type: Physician Filed: 01/20/15 1907 Date of Service: 01/16/15911 Status: Signed Molecular Modeler: Luisito Thomas MD (Physician) [facility] Service: NEPHROLOGY PROGRESS Note Cole Ernst 69 y.o. [id number] 4445/[id number] female [facility] Day: LOS: 2 days The patient is a 69 y.o. 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 High CIWA this shift =4. Patient c/o generalized pain, treated with PRN [place] per orders. Patient observed to be sle eping, following PRN medication and repositioning. Patient continues to be NSR-ST on tele. Vitals stable. Will continue to monitor patient. ose Maria Black MD - 01/15/2015 3:19 PM PDTFormatting of this note might be different from armando tellez original. Progress Notes by Jose Maria Espinal MD at 01/15/15 1338 Author: Jose Maria Espinal MD Service: Hospitalist Author Type: Physician Filed: 01/16/15 0925 Date of Service: 01/15/151518 Status: Signed Molecular Modeler: Jose Maria Espinal MD (Physician) Related Notes: Original Note by Jose Maria Espinal MD (Physician) filed at 01/15/151939 [facility] Service: Hospitalist Progress Note Pt: Cole [...] who called EMS. Patient was taken to [facility] in [place]. Susie ent was noted to have a [...] Patient had borderline blood pressure. While at [facility] with systolic in the low 90s. [...] CT done several days ago while in [place]. She also stat es that her vomiting and diarrhea have significantly improved. She denies any fevers, hemat emesis, melena, bright red blood per rectum, hematuria, dysuria, she denies any leg pain or swelling. No palpitations. She states she does have a history of "kidney disease" and was told that it was secondary to cyclosporine. However, she is not seen kidney specialist [facility] e her liver transplant.".....per admitting [...] contrast. Prior study for comparison: None FINDINGS: Brake Liner 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 deg enerative changes of [...] LA/Ao: 1.57 D-E Excursion: 2.11 cm E-F Whitman: 0.09 m/s EPSS: 0.48 cm HR: 77.41 [...] TV A Billy: 0.66 m/s TV Dec Whitman: 4.36 m/s2 TV Dec Time: 184.41 ms TV E Billy: 0.80 m/s TV E/A Rat io: 1.21 Journeyman Carpenter: NEDRA Authenticated by: Gil Martines MD Report [...] Elevated troponins, question underlying non ST elevation NC. Continue current medical th erapy. I appreciate [...] 1439 Date of Service: 01/15/151429 Status: Signed Molecular Modeler: Ronda Michaels RD (Registered Dietitian) 01/15/15 4260 Subjective Timepoint Admit Pt c/o In to [...] Estimated Energy Needs Total Energy Estimated Needs 3182-5842 kcal Method for Estimating Needs 25-30 kcal/kg [...] Date of Service: 01/15/15 1043 Status: Signed Molecular Modeler: Luisito Thomas MD (Physician) [facility] Service: NEPHROLOGY PROGRESS Note Cole Ernst 69 y.o. [id number] 4445/4445-1 female [facility] Day: LOS: 1 day The patient is a 69 y.o. 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 See ED Record for Physician Inter pretation. 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 [...] 01/14/152226 Date of Service: 01/14/152226 Status: Signed Molecular Modeler: Jazz Rahman RPH (Pharmacist) Clinical Pharmacy Note - Renal Dose Adjustment Cole Ernst 69 y.o. female Ht Readings from Last 1 Encounters: 01/14/15 1.6 m (5' 3") Wt Readings from Last 1 Encounters: 01/14/15 89.6 kg (197 lb 8.5 oz) CREATININE Date Value Ref Range Status 01/14/2015 2.4* 0.50 - 1.00 mg/dL Final Comment: Testing performed at [facility];[address] [place] [address];[place] [address] CREATININE: 2.4 mg/dL ABNORMAL (01/14/15 1548) Estimated [...] PHUONG Crump LICSW Service: (none) Author Type: Design Chief Filed: 01/14/151734 Date of Service: 01/14/151733 Status: Signed Molecular Modeler: PHUONG Crump LICSW (Design Chief) 01/14/151727 Discharge Planning Evaluation Admitting Diagnosis Near syncope, elevated tropinin, non-stemi, CKD Readmission No Living Arrangements Alone Support Systems Family members;Friends/neighbors Type of Residence Private residence House type Apartment Bathrooms on 1st Floor 1-Full Independent with ADL's Yes Independent with Mobility No-comment Home Care Services No Mental Status Oriented Power of Manager Service Desk No;Other (comment) Resources Transportation issues No Prescription Plan Yes Name of Pharmacy [facility] in [place], [place] Previous home health equipment Yes Anticipated Disposition Facility Type Home Met with patient and discussed discharge planning, Pt is a 69 y.o., female who reports skyleri mack alone. Patient reports her sister, Annie Tipton, will transport her home a t discharge. Patient's PCP is: KI DE JESUS (General) Patient's insurance:b [employer] & Medicare Coverage concerns: Medication coverage/concerns: Doreen Bedside Delivery: [facility] resources utilized / needed: TBD Assistance in [...] preparation was | | | [facility] | | | [place] [address] (Acquisitions Assistant: Martin | | | Zhang Galvan; [facility]#: [id number]). Diagnostician: Martin Potter | | Pathologist Electronically [...] EXTERNAL | | | | performed at [facility], [address] | | LAB | | | | [address], | | | | | | [place] [address] | | | | + + + [...] | | | | | [place] [address] | | | | + + + [...] | | | | | [place] [address] | | | | + + + + + + | K | 3.4 (L)Comment: Testing | 3.5 - 4.9 | EXTERNAL | | | | performed at [facility], [address] | mmol/L | LAB | | | | [place] [address], | | | | | | [place] [address] | | | | + + + + + + | Cl | 101Comment: Testing | 99 - 109 mmol/L | EXTERNAL | | | | performed at [facility], [address] | | LAB | | | | [address], | | | | | | [place] [address] | | | | + + + + + + | CO2 | 28Comment: Testing | 23 - 32 mmol/L | EXTERNAL | | | | performed at [facility], [address] | | LAB | | | | [address], | | | | | | [place] [address] | | | | + + + + + + | Anion Gap | 10Comment: Testing | 5 - 20 mmol/L | EXTERNAL | | | | performed at [facility], [address] | | LAB | | | | [address], | | | | | | [place] [address] | | | | + + + + + + | Glucose, | 107 (H)Comment: Testing | 65 - 99 mg/dL | EXTERNAL | | | Fasting | performed at [facility], [address] | | LAB | | | | [address], | | | | | | [place] [address] | | | | + + + + + + | BUN | 8Comment: Testing | 8 - 25 mg/dL | EXTERNAL | | | | performed at [facility], [address] | | LAB | | | | [address], | | | | | | [place] [address] | | | | + + + + + + | Creatinine | 0.96Comment: Testing | 0.50 - 1.00 | EXTERNAL | | | | performed at [facility], [address] | mg/dL | LAB | | | | [address], | | | | | | [place] [address] | | | | + + + + + + | BUN/Creatin | 8Comment: Testing | | EXTERNAL | | | ine Ratio | performed at [facility], [address] | | LAB | | | | [address], | | | | | | [place] [address] | | | | + + + + + + | Calcium | 8.6Comment: Testing | 8.5 - 10.5 | EXTERNAL | | | | performed at [facility], [address] | mg/dL | LAB | | | | [address] [facility], | | | | | | [place] [address] | | | | + + + [...] | | | | | | at [facility], [address] | | | | | | [address] [facility], | | | | | | [place] [address] | | | | + + [...] + + + | COLE ERNST 1945 [place] MYOCARDIAL PERFUSION SPECT - STRESS | | [...] Conversion - 01/05/2019 4:32 AM PDT COLE ERNST1945[place] MYOCARDIAL | | PERFUSION SPECT - STRESS [...] K/uL | LAB | | | | [facility] [facility] [address], | | | | | | [place] [address] | | | | + + + + + + | RED CELL | 3.41 (L)Comment: Testing | 3.70 - 5.10 | EXTERNAL | | | COUNT | performed at [facility], [address] | M/uL | LAB | | | | [address], | | | | | | [place] [address] | | | | + + + + + + | Hgb | 11.9Comment: Testing | 11.3 - 15.5 | EXTERNAL | | | | performed at [facility], [address] | g/dL | LAB | | | | [address], | | | | | | [place] [address] | | | | + + + + + + | Hematocrit, | 35.7Comment: Testing | 34.0 - 46.0 % | EXTERNAL | | | POC | performed at [facility], [address] | | LAB | | | | [address], | | | | | | [place] [address] | | | | + + + + + + | MCV | 104.6 (H)Comment: | 80.0 - 100.0 fl | EXTERNAL | | | | Testing performed at | | LAB | | | | [facility], [address] | | | | | | [place] | | | | | | [address] | | | | + + + + + + | MCH | 34.9 (H)Comment: Testing | 27.0 - 34.0 pg | EXTERNAL | | | | performed at [facility], [address] | | LAB | | | | [address], | | | | | | [place] [address] | | | | + + + [...] | | | | | [place] [address] | | | | + + + [...] | | | | | [place] [address] | | | | + + + + + + | MPV | 12.6Comment: Testing | fl | EXTERNAL | | | | performed at [facility], [address] | | LAB | | | | [address], | | | | | | [place] [address] | | | | + + + + + + | Differentia | AUTOMATEDComment: | | EXTERNAL | | | l Type | Testing performed at | | LAB | | | | [facility], [address] | | | | | | [place] | | | | | | [address] | | | | + + + [...] | | | | | [place], [place] [address] | | | | + + + + + + | % Monocytes | 12.51Comment: Testing | % | EXTERNAL | | | | performed at [facility], [address] | | LAB | | | | [address], | | | | | | [place], [place] [address] | | | | + + + + + + | % | 6.45Comment: Testing | % | EXTERNAL | | | Eosinophils | performed at [facility], [address] | | LAB | | | | [address], | | | | | | [place], [place] [address] | | | | + + + + + + | % Basophils | 0.95Comment: Testing | % | EXTERNAL | | | | performed at [facility], [address] | | LAB | | | | [address], | | | | | | [place] [address] | | | | + + + + + + | Absolute | 3.26Comment: Testing | 1.90 - 7.40 | EXTERNAL | | | Segmented | performed at [facility], [address] | K/uL | LAB | | | Neutrophils | [address], | | | | | | [place] [address] | | | | + + + + + + | Absolute | 3.21Comment: Testing | 1.00 - 3.90 | EXTERNAL | | | Lymphocytes | performed at [facility], [address] | K/uL | LAB | | | | [address], | | | | | | [place] [address] | | | | + + + + + + | Absolute | 1.01 (H)Comment: Testing | 0.00 - 0.80 | EXTERNAL | | | Monocytes | performed at [facility], [address] | K/uL | LAB | | | | [address], | | | | | | [place] [address] | | | | + + + + + + | Absolute | 0.52 (H)Comment: Testing | 0.00 - 0.50 | EXTERNAL | | | Eosinophils | performed at [facility], [address] | K/uL | LAB | | | | [address], | | | | | | [place] [address] | | | | + + + + + + | Absolute | 0.08Comment: Testing | 0.00 - 0.10 | EXTERNAL | | | Basophils | performed at [facility], [address] | K/uL | LAB | | | | [address], | | | | | | [place] [address] | | | | + + + + + + | RBC | RBC AND PLT MORPHOLOGY | | EXTERNAL | | | Morphology | APPEAR NORMALComment: | | LAB | | | | Testing performed at | | | | | | [facility], [address] [facility] | | | | | | [place] | | | | | | [address] | | | | + + + [...] EXTERNAL | | | | performed at [facility], [address] | | LAB | | | | [address], | | | | | | [place] [address] | | | | + + + [...] EXTERNAL | | | | performed at [facility], [address] | | LAB | | | | [address], | | | | | | [place] [address] | | | | + + + [...] | | | | | [place] [address] | | | | + + + + + + | K | 3.8Comment: Testing | 3.5 - 4.9 | EXTERNAL | | | | performed at [facility], [address] | mmol/L | LAB | | | | [address], | | | | | | [place] [address] | | | | + + + + + + | Cl | 101Comment: Testing | 99 - 109 mmol/L | EXTERNAL | | | | performed at [facility], [address] | | LAB | | | | [address], | | | | | | [place] [address] | | | | + + + + + + | CO2 | 27Comment: Testing | 23 - 32 mmol/L | EXTERNAL | | | | performed at [facility], [address] | | LAB | | | | [address], | | | | | | [place] [address] | | | | + + + + + + | Anion Gap | 12Comment: Testing | 5 - 20 mmol/L | EXTERNAL | | | | performed at [facility], [address] | | LAB | | | | [address], | | | | | | [place] [address] | | | | + + + + + + | Glucose, | 118 (H)Comment: Testing | 65 - 99 mg/dL | EXTERNAL | | | Fasting | performed at [facility], [address] | | LAB | | | | [address], | | | | | | [place] [address] | | | | + + + + + + | BUN | 7 (L)Comment: Testing | 8 - 25 mg/dL | EXTERNAL | | | | performed at [facility], [address] | | LAB | | | | [address], | | | | | | [place] [address] | | | | + + + + + + | Creatinine | 0.79Comment: Testing | 0.50 - 1.00 | EXTERNAL | | | | performed at [facility], [address] | mg/dL | LAB | | | | [address], | | | | | | [place] [address] | | | | + + + + + + | BUN/Creatin | 9Comment: Testing | | EXTERNAL | | | ine Ratio | performed at [facility], [address] | | LAB | | | | [address], | | | | | | [place] [address] | | | | + + + + + + | Calcium | 7.5 (L)Comment: Testing | 8.5 - 10.5 | EXTERNAL | | | | performed at [facility], [address] | mg/dL | LAB | | | | [address], | | | | | | [place] [address] | | | | + + + + + + | Protein, | 7.2Comment: Testing | 6.3 - 8.2 g/dL | EXTERNAL | | | Total | performed at [facility], [address] | | LAB | | | | [address], | | | | | | [place] [address] | | | | + + + + + + | Albumin | 3.1 (L)Comment: Testing | 3.3 - 4.8 g/dL | EXTERNAL | | | | performed at [facility], [address] | | LAB | | | | [address], | | | | | | [place] [address] | | | | + + + + + + | Globulin | 4.1Comment: Testing | 1.3 - 4.9 g/dL | EXTERNAL | | | | performed at [facility], [address] | | LAB | | | | [address], | | | | | | [place] [address] | | | | + + + + + + | A/G Ratio | 0.8 (L)Comment: Testing | 1.0 - 2.4 | EXTERNAL | | | | performed at [facility], [address] | | LAB | | | | [address], | | | | | | [place] [address] | | | | + + + + + + | Bilirubin | 0.5Comment: Testing | 0.1 - 1.5 mg/dL | EXTERNAL | | | Total | performed at [facility], [address] | | LAB | | | | [address], | | | | | | [place], [place] [address] | | | | + + + + + + | ALP, | 76Comment: Testing | 35 - 115 U/L | EXTERNAL | | | External | performed at [facility], [address] | | LAB | | | | [address], | | | | | | [place], [place] [address] | | | | + + + + + + | AST | 43Comment: Testing | 10 - 45 U/L | EXTERNAL | | | | performed at [facility], [address] | | LAB | | | | [address], | | | | | | [place] [address] | | | | + + + + + + | ALT | 25Comment: Testing | 10 - 65 U/L | EXTERNAL | | | | performed at [facility], [address] | | LAB | | | | [address], | | | | | | [place] [address] | | | | + + + [...] | | | | | | at [facility], [address] | | | | | | [address], | | | | | | [place] [address] | | | | + + + [...] | | | | performed at [facility];[address] | mmol/L | LAB | | | | [address];[place], [place] | | | | | | [address] | | | | + + + [...] | | | | performed at [facility];[address] | | LAB | | | | [address];[place], [place] | | | | | | [address] | | | | + + + [...] | | | | performed at [facility];[address] | | LAB | | | | [address];[place], [place] | | | | | | [address] | | | | + + + [...] | | | | performed at [facility];[address] | mmol/L | LAB | | | | [address];[place], [place] | | | | | | [address] | | | | + + + [...] | | | | performed at [facility];[address] | | LAB | | | | [address];[place] | | | | | | [address] | | | | + + + [...] | | | | performed at [facility];[address] | | LAB | | | | [address];[place], [place] | | | | | | [address] | | | | + + + [...] | | | | | [place] [address] | | | | + + + + + + | RED CELL | 3.40 (L)Comment: Testing | 3.70 - 5.10 | EXTERNAL | | | COUNT | performed at [facility], [address] | M/uL | LAB | | | | [address], | | | | | | [place] [address] | | | | + + + + + + | Hgb | 12.0Comment: Testing | 11.3 - 15.5 | EXTERNAL | | | | performed at [facility], [address] | g/dL | LAB | | | | [address], | | | | | | [place] [address] | | | | + + + + + + | Hematocrit, | 35.8Comment: Testing | 34.0 - 46.0 % | EXTERNAL | | | POC | performed at [facility], [address] | | LAB | | | | [address], | | | | | | [place] [address] | | | | + + + + + + | MCV | 105.3 (H)Comment: | 80.0 - 100.0 fl | EXTERNAL | | | | Testing performed at | | LAB | | | | [facility], [address] | | | | | | [place] | | | | | | [address] | | | | + + + + + + | MCH | 35.3 (H)Comment: Testing | 27.0 - 34.0 pg | EXTERNAL | | | | performed at [facility], [address] | | LAB | | | | [address], | | | | | | [place] [address] | | | | + + + + + + | MCHC | 33.6Comment: Testing | 32.0 - 35.5 | EXTERNAL | | | | performed at [facility], [address] | g/dL | LAB | | | | [address], | | | | | | [place] [address] | | | | + + + + + + | RDW-CV | 50.8Comment: Testing | 37 - 53 fl | EXTERNAL | | | | performed at [facility], [address] | | LAB | | | | [address], | | | | | | [place] [address] | | | | + + + + + + | Platelet | 149 (L)Comment: Testing | 150 - 400 K/uL | EXTERNAL | | | Count | performed at [facility], [address] | | LAB | | | Plasma | [address], | | | | | | [place] [address] | | | | + + + [...] [place] | | | | | | [address] | | | | + + + + + + | % Segmented | 52.08Comment: Testing | % | EXTERNAL | | | | performed at [facility], [address] | | LAB | | | Neutrophils | [address], | | | | | | [place] [address] | | | | + + + + + + | % | 32.37Comment: Testing | % | EXTERNAL | | | Lymphocytes | performed at [facility], [address] | | LAB | | | | [address], | | | | | | [place], [place] [address] | | | | + + + + + + | % Monocytes | 10.07Comment: Testing | % | EXTERNAL | | | | performed at [facility], [address] | | LAB | | | | [address], | | | | | | [place], [place] [address] | | | | + + + + + + | % | 4.41Comment: Testing | % | EXTERNAL | | | Eosinophils | performed at [facility], [address] | | LAB | | | | [address], | | | | | | [place] [address] | | | | + + + + + + | % Basophils | 1.07Comment: Testing | % | EXTERNAL | | | | performed at [facility], [address] | | LAB | | | | [address], | | | | | | [place] [address] | | | | + + + + + + | Absolute | 5.59Comment: Testing | 1.90 - 7.40 | EXTERNAL | | | Segmented | performed at [facility], [address] | K/uL | LAB | | | Neutrophils | [address], | | | | | | [place] [address] | | | | + + + + + + | Absolute | 3.48Comment: Testing | 1.00 - 3.90 | EXTERNAL | | | Lymphocytes | performed at [facility], [address] | K/uL | LAB | | | | [address], | | | | | | [place] [address] | | | | + + + + + + | Absolute | 1.08 (H)Comment: Testing | 0.00 - 0.80 | EXTERNAL | | | Monocytes | performed at [facility], [address] | K/uL | LAB | | | | [address], | | | | | | [place] [address] | | | | + + + + + + | Absolute | 0.47Comment: Testing | 0.00 - 0.50 | EXTERNAL | | | Eosinophils | performed at [facility], [address] | K/uL | LAB | | | | [address], | | | | | | [place] [address] | | | | + + + + + + | Absolute | 0.12 (H)Comment: Testing | 0.00 - 0.10 | EXTERNAL | | | Basophils | performed at [facility], [address] | K/uL | LAB | | | | [address], | | | | | | [place] [address] | | | | + + + + + + | RBC | NORMAL RBC MORPHComment: | | EXTERNAL | | | Morphology | Testing performed at | | LAB | | | | [facility], [address] | | | | | | [place] | | | | | | [address] | | | | + + + + + + | Differentia | 1+ GIANT PLTComment: | | EXTERNAL | | | l Comments | Testing performed at | | LAB | | | | [facility], [address] | | | | | | [place] | | | | | | [address] | | | | + + + [...] | | | | | [place] [address] | | | | + + + + + + | K | 3.2 (L)Comment: Testing | 3.5 - 4.9 | EXTERNAL | | | | performed at [facility], [address] | mmol/L | LAB | | | | [address], | | | | | | [place] [address] | | | | + + + + + + | Cl | 100Comment: Testing | 99 - 109 mmol/L | EXTERNAL | | | | performed at [facility], [address] | | LAB | | | | [address], | | | | | | [place] [address] | | | | + + + + + + | CO2 | 28Comment: Testing | 23 - 32 mmol/L | EXTERNAL | | | | performed at [facility], [address] | | LAB | | | | [address], | | | | | | [place] [address] | | | | + + + + + + | Anion Gap | 13Comment: Testing | 5 - 20 mmol/L | EXTERNAL | | | | performed at [facility], [address] | | LAB | | | | [address], | | | | | | [place] [address] | | | | + + + + + + | Glucose, | 114 (H)Comment: Testing | 65 - 99 mg/dL | EXTERNAL | | | Fasting | performed at [facility], [address] | | LAB | | | | [address], | | | | | | [place] [address] | | | | + + + + + + | BUN | 8Comment: Testing | 8 - 25 mg/dL | EXTERNAL | | | | performed at [facility], [address] | | LAB | | | | [address], | | | | | | [place] [address] | | | | + + + + + + | Creatinine | 0.94Comment: Testing | 0.50 - 1.00 | EXTERNAL | | | | performed at [facility], [address] | mg/dL | LAB | | | | [address], | | | | | | [place] [address] | | | | + + + + + + | BUN/Creatin | 9Comment: Testing | | EXTERNAL | | | ine Ratio | performed at [facility], [address] | | LAB | | | | [address], | | | | | | [place] [address] | | | | + + + + + + | Calcium | 7.8 (L)Comment: Testing | 8.5 - 10.5 | EXTERNAL | | | | performed at [facility], [address] | mg/dL | LAB | | | | [address], | | | | | | [place] [address] | | | | + + + + + + | Protein, | 7.8Comment: Testing | 6.3 - 8.2 g/dL | EXTERNAL | | | Total | performed at [facility], [address] | | LAB | | | | [address], | | | | | | [place] [address] | | | | + + + + + + | Albumin | 3.3Comment: Testing | 3.3 - 4.8 g/dL | EXTERNAL | | | | performed at [facility], [address] | | LAB | | | | [address], | | | | | | [place] [address] | | | | + + + + + + | Globulin | 4.5Comment: Testing | 1.3 - 4.9 g/dL | EXTERNAL | | | | performed at [facility], [address] | | LAB | | | | [address], | | | | | | [place] [address] | | | | + + + + + + | A/G Ratio | 0.7 (L)Comment: Testing | 1.0 - 2.4 | EXTERNAL | | | | performed at [facility], [address] | | LAB | | | | [address], | | | | | | [place] [address] | | | | + + + + + + | Bilirubin | 0.4Comment: Testing | 0.1 - 1.5 mg/dL | EXTERNAL | | | Total | performed at [facility], [address] | | LAB | | | | [address], | | | | | | [place] [address] | | | | + + + + + + | ALP, | 83Comment: Testing | 35 - 115 U/L | EXTERNAL | | | External | performed at [facility], [address] | | LAB | | | | [address], | | | | | | [place] [address] | | | | + + + + + + | AST | 34Comment: Testing | 10 - 45 U/L | EXTERNAL | | | | performed at [facility], [address] | | LAB | | | | [address], | | | | | | [place] [address] | | | | + + + + + + | ALT | 24Comment: Testing | 10 - 65 U/L | EXTERNAL | | | | performed at [facility], [address] | | LAB | | | | [address], | | | | | | [place] [address] | | | | + + + [...] | | | | | | [place] [address] | | | | + + [...] | | | | performed at [facility] | | | | | | [address];[place], [place] | | | | | | [address] | | | | + + [...] | | | | performed at [facility];[address] | | | | | | [address];[place], [place] | | | | | | [address] | | | | + + + [...] | | | | performed at [facility];[address] | mmol/L | LAB | | | | [address];[place] | | | | | | [address] | | | | + + + [...] | | | | performed at [facility];[address] | | LAB | | | | [address];[place], [place] | | | | | | [address] | | | | + + + [...] TESTING. | | | Testing performed at [facility], [address] | | | [place] [address] | | + + + + +---------+ [...] | Testing performed at | | | [facility], [address] [place] [address] | | + + + + +---------+ [...] NONE SEEN to 1+ Testing performed at [facility], [address] [facility] | | | [place] [address] | | + + + + +---------+ [...] antigen detected by ICA Testing performed at [facility], [facility] [address] | | | [place] [address] | | + + + + +---------+ [...] at | | | | | | [facility], [address] | | | | | | [place] | | | | | | [address] | | | | + + + [...] | | | | | performed at [facility], [address] | | | | | | [facility] | | | | | | [place] [address] | | | | + + + [...] | | | | performed at [facility];[address] | | LAB | | | | [address];[place] | | | | | | [address] | | | | + + + + + + | CMV DNA | NOT DETECTEDComment: | | EXTERNAL | | | QUANTITATIV | Unit: IU/MLTesting | | LAB | | | E INTERP | performed at [facility], [address] | | | | | | [facility] | | | | | | [place] [address] | | | | + + + + + + | CMV DNA, | NOT DETECTEDComment: | | EXTERNAL | | | Qual PCR | Unit: COPIES/MLTesting | | LAB | | | | performed at [facility], [address] | | | | | | [place] | | | | | | [place] [address] | | | | + + + [...] | | | | | | DETERMINEDBY [facility] | | | | | | [...] | | | | | | DECISIONS. [facility] | | | | | | [...] | | | | | | at [facility], [address] | | | | | | [place] | | | | | | [address] | | | | + + + [...] EXTERNAL | | | | performed at [facility], [address] | K/uL | LAB | | | | [address], | | | | | | [place] [address] | | | | + + + + + + | RED CELL | 3.28 (L)Comment: Testing | 3.70 - 5.10 | EXTERNAL | | | COUNT | performed at [facility], [address] | M/uL | LAB | | | | [address], | | | | | | [place] [address] | | | | + + + + + + | Hgb | 11.6Comment: Testing | 11.3 - 15.5 | EXTERNAL | | | | performed at [facility], [address] | g/dL | LAB | | | | [address], | | | | | | [place] [address] | | | | + + + + + + | Hematocrit, | 34.5Comment: Testing | 34.0 - 46.0 % | EXTERNAL | | | POC | performed at [facility], [address] | | LAB | | | | [address], | | | | | | [place] [address] | | | | + + + + + + | MCV | 105.1 (H)Comment: | 80.0 - 100.0 fl | EXTERNAL | | | | Testing performed at | | LAB | | | | [facility], [address] | | | | | | [place] | | | | | | [address] | | | | + + + + + + | MCH | 35.3 (H)Comment: Testing | 27.0 - 34.0 pg | EXTERNAL | | | | performed at [facility], [address] | | LAB | | | | [address], | | | | | | [place] [address] | | | | + + + + + + | MCHC | 33.5Comment: Testing | 32.0 - 35.5 | EXTERNAL | | | | performed at [facility], [address] | g/dL | LAB | | | | [address], | | | | | | [place] [address] | | | | + + + + + + | RDW-CV | 50.8Comment: Testing | 37 - 53 fl | EXTERNAL | | | | performed at [facility], [address] | | LAB | | | | [address], | | | | | | [place] [address] | | | | + + + + + + | Platelet | 144 (L)Comment: Testing | 150 - 400 K/uL | EXTERNAL | | | Count | performed at [facility], [address] | | LAB | | | Plasma | [address], | | | | | | [place] [address] | | | | + + + + + + | MPV | 13.0Comment: Testing | fl | EXTERNAL | | | | performed at [facility], [address] | | LAB | | | | [address], | | | | | | [place] [address] | | | | + + + + + + | Differentia | AUTOMATEDComment: | | EXTERNAL | | | l Type | Testing performed at | | LAB | | | | [facility], [address] | | | | | | [place] | | | | | | [address] | | | | + + + + + + | % Segmented | 37.99Comment: Testing | % | EXTERNAL | | | | performed at [facility], [address] | | LAB | | | Neutrophils | [address], | | | | | | [place] [address] | | | | + + + + + + | % | 43.49Comment: Testing | % | EXTERNAL | | | Lymphocytes | performed at [facility], [address] | | LAB | | | | [address], | | | | | | [place] [address] | | | | + + + + + + | % Monocytes | 11.24Comment: Testing | % | EXTERNAL | | | | performed at [facility], [address] | | LAB | | | | [address], | | | | | | [place] [address] | | | | + + + + + + | % | 5.97Comment: Testing | % | EXTERNAL | | | Eosinophils | performed at [facility], [address] | | LAB | | | | [address], | | | | | | [place] [address] | | | | + + + + + + | % Basophils | 1.31Comment: Testing | % | EXTERNAL | | | | performed at [facility], [address] | | LAB | | | | [address], | | | | | | [place] [address] | | | | + + + + + + | Absolute | 4.01Comment: Testing | 1.90 - 7.40 | EXTERNAL | | | Segmented | performed at [facility], [address] | K/uL | LAB | | | Neutrophils | [address], | | | | | | [place] [address] | | | | + + + + + + | Absolute | 4.59 (H)Comment: Testing | 1.00 - 3.90 | EXTERNAL | | | Lymphocytes | performed at [facility], [address] | [address] | LAB | | | | [address], | | | | | | [place] [address] | | | | + + + + + + | Absolute | 1.19 (H)Comment: Testing | 0.00 - 0.80 | EXTERNAL | | | Monocytes | performed at [facility], [address] | K/uL | LAB | | | | [address], | | | | | | [place] [address] | | | | + + + + + + | Absolute | 0.63 (H)Comment: Testing | 0.00 - 0.50 | EXTERNAL | | | Eosinophils | performed at [facility], [address] | K/uL | LAB | | | | [address], | | | | | | [place], [place] [address] | | | | + + + + + + | Absolute | 0.14 (H)Comment: Testing | 0.00 - 0.10 | EXTERNAL | | | Basophils | performed at [facility], [address] | K/uL | LAB | | | | [address], | | | | | | [place] [address] | | | | + + + + + + | RBC | NORMAL RBC MORPHComment: | | EXTERNAL | | | Morphology | Testing performed at | | LAB | | | | [facility], [address] | | | | | | [place] | | | | | | [address] | | | | + + + + + + | Differentia | 2+ GIANT PLTComment: | | EXTERNAL | | | l Comments | Testing performed at | | LAB | | | | [facility], [address] | | | | | | [place] | | | | | | [address] | | | | + + + [...] [place] | | | | | | [address] | | | | + + + [...] | | | (REF) | performed at [facility], [address] | | LAB | | | | [address], | | | | | | [place] [address] | | | | + + + [...] EXTERNAL | | | | performed at [facility], [address] | | LAB | | | | [address], | | | | | | [place] [address] | | | | + + + [...] EXTERNAL | | | | performed at [facility], [address] | | LAB | | | | [address], | | | | | | [place] [address] | | | | + + + [...] | | | | | [place] [address] | | | | + + + + + + | K | 3.0 (L)Comment: Testing | 3.5 - 4.9 | EXTERNAL | | | | performed at [facility], [address] | mmol/L | LAB | | | | [address], | | | | | | [place] [address] | | | | + + + + + + | Cl | 104Comment: Testing | 99 - 109 mmol/L | EXTERNAL | | | | performed at [facility], [address] | | LAB | | | | [address], | | | | | | [place] [address] | | | | + + + + + + | CO2 | 22 (L)Comment: Testing | 23 - 32 mmol/L | EXTERNAL | | | | performed at [facility], [address] | | LAB | | | | [address], | | | | | | [place] [address] | | | | + + + + + + | Anion Gap | 15Comment: Testing | 5 - 20 mmol/L | EXTERNAL | | | | performed at [facility], [address] | | LAB | | | | [address], | | | | | | [place] [address] | | | | + + + + + + | Glucose, | 82Comment: Testing | 65 - 99 mg/dL | EXTERNAL | | | Fasting | performed at [facility], [address] | | LAB | | | | [address], | | | | | | [place] [address] | | | | + + + + + + | BUN | 13Comment: Testing | 8 - 25 mg/dL | EXTERNAL | | | | performed at [facility], [address] | | LAB | | | | [address], | | | | | | [place] [address] | | | | + + + + + + | Creatinine | 1.01 (H)Comment: Testing | 0.50 - 1.00 | EXTERNAL | | | | performed at [facility], [address] | mg/dL | LAB | | | | [address], | | | | | | [place] [address] | | | | + + + + + + | BUN/Creatin | 13Comment: Testing | | EXTERNAL | | | ine Ratio | performed at [facility], [address] | | LAB | | | [address], | | | | | | [place] [address] | | | | + + + + + + | Calcium | 7.7 (L)Comment: Testing | 8.5 - 10.5 | EXTERNAL | | | | performed at [facility], [address] | mg/dL | LAB | | | | [address], | | | | | | [place] [address] | | | | + + + + + + | Protein, | 7.1Comment: Testing | 6.3 - 8.2 g/dL | EXTERNAL | | | Total | performed at [facility], [address] | | LAB | | | | [address], | | | | | | [place] [address] | | | | + + + + + + | Albumin | 3.2 (L)Comment: Testing | 3.3 - 4.8 g/dL | EXTERNAL | | | | performed at [facility], [address] | | LAB | | | | [address], | | | | | | [place] [address] | | | | + + + + + + | Globulin | 3.9Comment: Testing | 1.3 - 4.9 g/dL | EXTERNAL | | | | performed at [facility], [address] | | LAB | | | | [address], | | | | | | [place] [address] | | | | + + + + + + | A/G Ratio | 0.8 (L)Comment: Testing | 1.0 - 2.4 | EXTERNAL | | | | performed at [facility], [address] | | LAB | | | | [address], | | | | | | [place] [address] | | | | + + + + + + | Bilirubin | 0.4Comment: Testing | 0.1 - 1.5 mg/dL | EXTERNAL | | | Total | performed at [facility], [address] | | LAB | | | | [address], | | | | | | [place] [address] | | | | + + + + + + | ALP, | 76Comment: Testing | 35 - 115 U/L | EXTERNAL | | | External | performed at [facility], [address] | | LAB | | | | [address], | | | | | | [place] [address] | | | | + + + + + + | AST | 26Comment: Testing | 10 - 45 U/L | EXTERNAL | | | | performed at [facility], [address] | | LAB | | | | [address], | | | | | | [place] [address] | | | | + + + + + + | ALT | 19Comment: Testing | 10 - 65 U/L | EXTERNAL | | | | performed at [facility], [address] | | LAB | | | | [address], | | | | | | [place] [address] | | | | + + + [...] | | | | | [place] [address] | | | | + + + [...] LAB | | | | performed at [facility], [address] | | | | [...] | | | Urine | performed at [facility], [address] | | LAB | | | Random | [address], | | | | | | [place] [address] | | | | + + + [...] | Testing performed | | | at [facility], [address] [facility] [place] [address] | | + + + + +---------+ [...] LA/Ao: 1.57 D-E Excursion: 2.11 cm E-F Whitman: 0.09 m/s | | | EPSS: 0.48 [...] TV A Billy: 0.66 m/s TV Dec Whitman: 4.36 m/s2 TV Dec | | | Time: 184.41 ms TV E Billy: 0.80 m/s TV E/A Ratio: 1.21 | | | Journeyman Carpenter: NEDRA Authenticated by: Gil Martines MD Report [...] | Index (A-L): 40.51 ml/m2LAAs A2C: 24.56 [id number] A-L A2C: 76.32 mlLAESV MOD A2C: | | 73.52 mlLALs A2C: 6.71 cmLAAs A4C: 24.96 [id number] A-L A4C: 79.86 mlLAESV MOD A4C: | | 77.20 mlLALs A4C: 6.62 cmAo Diam: 2.73 cmAV Cusp: 2.27 cmLA Diam: 4.29 | | cmLA/Ao: 1.57D-E Excursion: 2.11 cmE-F Whitman: 0.09 m/sEPSS: 0.48 cmHR: 77.41 | | BPMAV maxP.05 mmHgAV meanP.21 mmHgAV Vmax: 1.73 m/Sorin Vmean: 1.25 m/Sorin | | VTI: 34.68 cmAVA Vmax: 2.07 cm2AVA (VTI): 1.85 hs4LKAD Dopp: 2.60 l/[id number] | | Dopp: 5.05 l/minHR: 78.81 BPMLVOT [...] | m/sTV A Billy: 0.66 m/sTV Dec Whitman: 4.36 m/s2TV Dec Time: 184.41 msTV E Billy: 0.80 | | m/sTV E/A Ratio: 1.21 Journeyman Carpenter: GDAuthenticated by: Gil PURDYdennis | | Date/Time: [...] | |D-E Excursion: 2.11 cm | |E-F Whitman: 0.09 m/s | |EPSS: 0.48 cm | [...] A Billy: 0.66 m/s | |TV Dec Whitman: 4.36 m/s2 | |TV Dec Time: 184.41 ms | |TV E Billy: 0.80 m/s | |TV E/A Ratio: 1.21 | | | |Journeyman Carpenter: GD | |Authenticated by: Gil Martines MD [...] EXTERNAL LAB | | performed at [facility] [facility];[place] [address] 027 NAP1 BI | | | 027 NAP1 BI PRESUMPTIVE NEGATIVE | | | Detection of 027 NAP1 BI strains of C. difficile is presumptive and | | | for epidemiological purposes and not intended to guide or monitor | | | treatment for C. difficile infections. Testing performed at [facility] | | | [facility];[place] [address] | | + + + + +---------+ [...] | | | COMPLEMENT | performed at [facility], [address] | | LAB | | | | [address], | | | | | | [place] [address] | | | | + + + + + + | Complement | 19.4Comment: Testing | 10 - 40 mg/dL | EXTERNAL | | | Comp 4 | performed at [facility], [address] | | LAB | | | | [address], | | | | | | [place] [address] | | | | + + + [...] | | | | performed at [facility];[address] | | | | | | [address] [facility];[place], [place] | | | | | | [address] | | | | + + + [...] | LAB | | | | [facility];[address] | | | | | | [address];[place] [address] | | | | + + + + + + | RED CELL | 3.27 (L)Comment: Testing | 3.70 - 5.10 | EXTERNAL | | | COUNT | performed at [facility];[address] | M/uL | LAB | | | | [address];[place] | | | | | | [address] | | | | + + + + + + | Hgb | 11.2 (L)Comment: Testing | 11.3 - 15.5 | EXTERNAL | | | | performed at [facility];[address] | g/dL | LAB | | | | [address];[place] | | | | | | [address] | | | | + + + + + + | Hematocrit, | 34.4Comment: Testing | 34.0 - 46.0 % | EXTERNAL | | | POC | performed at [facility];[address] | | LAB | | | | [address];[place] | | | | | | [address] | | | | + + + + + + | MCV | 105.2 (H)Comment: | 80.0 - 100.0 fl | EXTERNAL | | | | Testing performed at | | LAB | | | | [facility];[address];[place] [address] | | | | + + + + + + | MCH | 34.2 (H)Comment: Testing | 27.0 - 34.0 pg | EXTERNAL | | | | performed at [facility];[address] | | LAB | | | | [address];[place] | | | | | | [address] | | | | + + + + + + | MCHC | 32.5Comment: Testing | 32.0 - 35.5 | EXTERNAL | | | | performed at [facility];888 | g/dL | LAB | | | | [address];[place] | | | | | | [address] | | | | + + + + + + | RDW-CV | 50.3Comment: Testing | 37 - 53 fl | EXTERNAL | | | | performed at [facility];[address] | | LAB | | | | [address];[place] | | | | | | [address] | | | | + + + + + + | Platelet | 160Comment: Testing | 150 - 400 K/uL | EXTERNAL | | | Count | performed at [facility];[address] | | LAB | | | Plasma | [address];[place] | | | | | | [address] | | | | + + + + + + | MPV | 11.1Comment: Testing | fl | EXTERNAL | | | | performed at [facility];[address] | | LAB | | | | [address];[place] | | | | | | [address] | | | | + + + + + + | Differentia | AUTOMATEDComment: | | EXTERNAL | | | l Type | Testing performed at | | LAB | | | | [facility];[address];[place] [address] | | | | + + + + + + | % Segmented | 50.65Comment: Testing | % | EXTERNAL | | | | performed at [facility];[address] | | LAB | | | Neutrophils | [address];[place] | | | | | | [address] | | | | + + + + + + | % | 37.06Comment: Testing | % | EXTERNAL | | | Lymphocytes | performed at [facility];[address] | | LAB | | | | [address];[place] | | | | | | [address] | | | | + + + + + + | % Monocytes | 9.60Comment: Testing | % | EXTERNAL | | | | performed at [facility];[address] | | LAB | | | | [address];[place] | | | | | | [address] | | | | + + + + + + | % | 1.30Comment: Testing | % | EXTERNAL | | | Eosinophils | performed at [facility];[address] | | LAB | | | | [address];[place] | | | | | | [address] | | | | + + + + + + | % Basophils | 1.39Comment: Testing | % | EXTERNAL | | | | performed at [facility];[address] | | LAB | | | | [address];[place] | | | | | | [address] | | | | + + + + + + | Absolute | 6.64Comment: Testing | 1.90 - 7.40 | EXTERNAL | | | Segmented | performed at [facility];[address] | K/uL | LAB | | | Neutrophils | [address];[place] | | | | | | [address] | | | | + + + + + + | Absolute | 4.86 (H)Comment: Testing | 1.00 - 3.90 | EXTERNAL | | | Lymphocytes | performed at [facility];[address] | K/uL | LAB | | | | [address];[place] | | | | | | [address] | | | | + + + + + + | Absolute | 1.26 (H)Comment: Testing | 0.00 - 0.80 | EXTERNAL | | | Monocytes | performed at [facility];[address] | K/uL | LAB | | | | [address];[place] | | | | | | [address] | | | | + + + + + + | Absolute | 0.17Comment: Testing | 0.00 - 0.50 | EXTERNAL | | | Eosinophils | performed at [facility];[address] | K/uL | LAB | | | | [address];[place] | | | | | | [address] | | | | + + + + + + | Absolute | 0.18 (H)Comment: Testing | 0.00 - 0.10 | EXTERNAL | | | Basophils | performed at [facility];[address] | K/uL | LAB | | | | [address];[place] | | | | | | [address] | | | | + + + [...] | | | | performed at [facility];[address] | | LAB | | | | [address];[place], [place] | | | | | | [address] | | | | + + + [...] | | | | performed at [facility];[address] | | | | | | [address];[place], [place] | | | | | | [address] | | | | + + + [...] | | | | performed at [facility];888 | mmol/L | LAB | | | | [address];[place] | | | | | | [address] | | | | + + + + + + | K | 3.7Comment: SLT | 3.5 - 4.9 | EXTERNAL | | | | HEMOLYSISTesting | mmol/L | LAB | | | | performed at [facility];[address] | | | | | | [address];[place] | | | | | | [address] | | | | + + + + + + | Cl | 110 (H)Comment: Testing | 99 - 109 mmol/L | EXTERNAL | | | | performed at [facility];[address] | | LAB | | | | [address];[place] | | | | | | [address] | | | | + + + + + + | CO2 | 24Comment: Testing | 23 - 32 mmol/L | EXTERNAL | | | | performed at [facility];[address] | | LAB | | | | [address];[place] | | | | | | [address] | | | | + + + + + + | Anion Gap | 13Comment: Testing | 5 - 20 mmol/L | EXTERNAL | | | | performed at [facility];[address] | | LAB | | | | [address];[place] | | | | | | [address] | | | | + + + + + + | Glucose, | 109 (H)Comment: Testing | 65 - 99 mg/dL | EXTERNAL | | | Fasting | performed at [facility];[address] | | LAB | | | | [address];[place] | | | | | | [address] | | | | + + + + + + | BUN | 24Comment: Testing | 8 - 25 mg/dL | EXTERNAL | | | | performed at [facility];[address] | | LAB | | | | [address];[place] | | | | | | [address] | | | | + + + + + + | Creatinine | 1.7 (H)Comment: Testing | 0.50 - 1.00 | EXTERNAL | | | | performed at [facility];[address] | mg/dL | LAB | | | | [address];[place] | | | | | | [address] | | | | + + + + + + | BUN/Creatin | 14Comment: Testing | | EXTERNAL | | | ine Ratio | performed at [facility];[address] | | LAB | | | | [address];[place] | | | | | | [address] | | | | + + + + + + | Calcium | 7.4 (L)Comment: Testing | 8.5 - 10.5 | EXTERNAL | | | | performed at [facility];888 | mg/dL | LAB | | | | [address];[place] | | | | | | [address] | | | | + + + + + + | Protein, | 7.0Comment: Testing | 6.3 - 8.2 g/dL | EXTERNAL | | | Total | performed at [facility];[address] | | LAB | | | | [address];[place] | | | | | | [address] | | | | + + + + + + | Albumin | 2.6 (L)Comment: Testing | 3.3 - 4.8 g/dL | EXTERNAL | | | | performed at [facility];[address] | | LAB | | | | [address];[place] | | | | | | [address] | | | | + + + + + + | Globulin | 4.3Comment: Testing | 1.3 - 4.9 g/dL | EXTERNAL | | | | performed at [facility];[address] | | LAB | | | | [address];[place] | | | | | | [address] | | | | + + + + + + | A/G Ratio | 0.6 (L)Comment: Testing | 1.0 - 2.4 | EXTERNAL | | | | performed at [facility];[address] | | LAB | | | | [address];[place] | | | | | | [address] | | | | + + + + + + | Bilirubin | 0.4Comment: Testing | 0.1 - 1.5 mg/dL | EXTERNAL | | | Total | performed at [facility];[address] | | LAB | | | | [address];[place] | | | | | | [address] | | | | + + + + + + | ALP, | 92Comment: Testing | 35 - 115 U/L | EXTERNAL | | | External | performed at [facility];[address] | | LAB | | | | [address];[place] | | | | | | [address] | | | | + + + + + + | AST | 35Comment: SLT | 10 - 45 U/L | EXTERNAL | | | | HEMOLYSISTesting | | LAB | | | | performed at [facility];[address] | | | | | | [address];[place] | | | | | | [address] | | | | + + + + + + | ALT | 29Comment: Testing | 10 - 65 U/L | EXTERNAL | | | | performed at [facility];[address] | | LAB | | | | [address];[place] | | | | | | [address] | | | | + + + [...] | | | | | at [facility];[address] [place] [address] | | | | | | [facility];[place] [address] | | | | + + + [...] | | | | performed at [facility];888 | uIU/mL | LAB | | | | [facility];[place], [place] | | | | | | [address] | | | | + + + [...] | | | | performed at [facility] | | | | | | [address];[place], [place] | | | | | | [address] | | | | + + + [...] GROWTH | | | Testing performed at [facility], | | | [address] [place] [address] | | + + + + +---------+ [...] | | study for comparison: None FINDINGS: Brake Liner 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 | | | degenerative [...] study | | for comparison: None FINDINGS: Brake Liner 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 degenerative changes of the [...] Testing | | | performed at [facility];[address] [facility];[place] [address] | | + + + + +---------+ [...] | | | | | at [facility];[address] [place] [address] | | | | | | [facility];[place] [address] | | | | + + + [...] | | | | performed at [facility];[address] | | LAB | | | | [address] [facility];[place], [place] | | | | | | [address] | | | | + + + [...] | | | | performed at [facility] | | LAB | | | | [address];[place] | | | | | | [address] | | | | + + + [...] | | | | performed at [facility];888 | mmol/L | LAB | | | | [address];[place], [place] | | | | | | [address] | | | | + + + [...] EXTERNAL | | | | performed at [facility], [address] | | LAB | | | | [address], | | | | | | [place] [address] | | | | + + + [...] | | | | [facility], [address] [facility] | | | | | | [place], [place] | | | | | | [address] | | | | + + + [...] | | | | performed at [facility];[address] | | LAB | | | | [address];[place] | | | | | | [address] | | | | + + + [...] | | | | performed at [facility];[address] | | LAB | | | | [address];[place], [place] | | | | | | [address] | | | | + + + [...] | | | | performed at [facility] | | | | | | [address];[place], [place] | | | | | | [address] | | | | + + + [...] | | | | performed at [facility];[address] | | LAB | | | | [address];[place] | | | | | | [address] | | | | + + + [...] | | | | performed at [facility];[address] | | LAB | | | | [address];[place] | | | | | | [address] [...] | LAB | | | | [facility];[address] | | | | | | [address];[place] [address] | | | | + + + + + + | RED CELL | 4.17Comment: Testing | 3.70 - 5.10 | EXTERNAL | | | COUNT | performed at [facility];[address] | M/uL | LAB | | | | [address];[place] | | | | | | [address] | | | | + + + + + + | Hgb | 14.6Comment: Testing | 11.3 - 15.5 | EXTERNAL | | | | performed at [facility];888 | g/dL | LAB | | | | [address];[place] | | | | | | [address] | | | | + + + + + + | Hematocrit, | 42.7Comment: Testing | 34.0 - 46.0 % | EXTERNAL | | | POC | performed at [facility];[address] | | LAB | | | | [address];[place] | | | | | | [address] | | | | + + + + + + | MCV | 102.3 (H)Comment: | 80.0 - 100.0 fl | EXTERNAL | | | | Testing performed at | | LAB | | | | [facility];[address];[place] [address] | | | | + + + + + + | MCH | 35.0 (H)Comment: Testing | 27.0 - 34.0 pg | EXTERNAL | | | | performed at [facility];[address] | | LAB | | | | [address];[place] | | | | | | [address] | | | | + + + + + + | MCHC | 34.2Comment: Testing | 32.0 - 35.5 | EXTERNAL | | | | performed at [facility];888 | g/dL | LAB | | | | [address];[place] | | | | | | [address] | | | | + + + + + + | RDW-CV | 49.9Comment: Testing | 37 - 53 fl | EXTERNAL | | | | performed at [facility];[address] | | LAB | | | | [address];[place] | | | | | | [address] | | | | + + + + + + | Platelet | 209Comment: Testing | 150 - 400 K/uL | EXTERNAL | | | Count | performed at [facility];[address] | | LAB | | | Plasma | [address];[place] | | | | | | [address] | | | | + + + + + + | MPV | 11.1Comment: Testing | fl | EXTERNAL | | | | performed at [facility];[address] | | LAB | | | | [address];[place] | | | | | | [address] | | | | + + + + + + | RBC | 1+Comment: GIANT | | EXTERNAL | | | Morphology | PLATELETS1+MACROTesting | | LAB | | | | performed at [facility];[address] | | | | | | [address];[place] | | | | | | [address] | | | | | |Testing performed at [facility] [address];[place] [address] | | | | | | | | | | + + + + + + | Differentia | MANUALComment: Testing | | EXTERNAL | | | l Type | performed at [facility] | | LAB | | | | [address];[place] | | | | | | [address] | | | | + + + + + + | Segmented | 58Comment: Testing | % | EXTERNAL | | | Neutrophils | performed at [facility] | | LAB | | | Manual | [address];[place] | | | | | | [address] | | | | + + + + + + | Lymphocytes | 32Comment: Testing | % | EXTERNAL | | | Manual | performed at [facility];[address] | | LAB | | | | [address];[place] | | | | | | [address] | | | | + + + + + + | Monocytes | 9Comment: Testing | % | EXTERNAL | | | Manual | performed at [facility];[address] | | LAB | | | | [address];[place] | | | | | | [address] | | | | + + + + + + | Eosinophils | 1Comment: Testing | % | EXTERNAL | | | Manual | performed at [facility];[address] | | LAB | | | | [address];[place] | | | | | | [address] | | | | + + + + + + | Absolute | 9.39 (H)Comment: Testing | 1.90 - 7.40 | EXTERNAL | | | Neutrophils | performed at [facility];[address] | K/uL | LAB | | | | [address];[place] | | | | | | [address] | | | | + + + + + + | Absolute | 5.18 (H)Comment: Testing | 1.00 - 3.90 | EXTERNAL | | | Lymphocytes | performed at [facility];888 | K/uL | LAB | | | | [address];[place] | | | | | | [address] | | | | + + + + + + | Absolute | 1.46 (H)Comment: Testing | 0.00 - 0.80 | EXTERNAL | | | Monocytes | performed at [facility] [place] | K/uL | LAB | | | | [address];[place] | | | | | | [address] | | | | + + + + + + | Absolute | 0.16Comment: Testing | 0.00 - 0.50 | EXTERNAL | | | Eosinophils | performed at [facility] [place] | K/uL | LAB | | | | [address];[place] | | | | | | [address] | | | | + + + + + + | Na | 140Comment: Testing | 135 - 143 | EXTERNAL | | | | performed at [facility] [place] | mmol/L | LAB | | | | [address];[place] | | | | | | [address] | | | | + + + + + + | K | 2.8 (L)Comment: Testing | 3.5 - 4.9 | EXTERNAL | | | | performed at [facility] [place] | mmol/L | LAB | | | | [address];[place] | | | | | | [address] | | | | + + + + + + | Cl | 100Comment: Testing | 99 - 109 mmol/L | EXTERNAL | | | | performed at [facility] [place] | | LAB | | | | [address];[place] | | | | | | [address] | | | | + + + + + + | CO2 | 29Comment: Testing | 23 - 32 mmol/L | EXTERNAL | | | | performed at [facility] [place] | | LAB | | | | [address];[place] | | | | | | [address] | | | | + + + + + + | Anion Gap | 14Comment: Testing | 5 - 20 mmol/L | EXTERNAL | | | | performed at [facility] [place] | | LAB | | | | [address];[place] | | | | | | [address] | | | | + + + + + + | Glucose, | 107 (H)Comment: Testing | 65 - 99 mg/dL | EXTERNAL | | | Fasting | performed at [facility] [place] | | LAB | | | | [address];[place] | | | | | | [address] | | | | + + + + + + | BUN | 28 (H)Comment: Testing | 8 - 25 mg/dL | EXTERNAL | | | | performed at [facility] [place] | | LAB | | | | [address];[place] | | | | | | [address] | | | | + + + + + + | Creatinine | 2.4 (H)Comment: Testing | 0.50 - 1.00 | EXTERNAL | | | | performed at [facility] [place] | mg/dL | LAB | | | | [address];[place] | | | | | | [address] | | | | + + + + + + | BUN/Creatin | 12Comment: Testing | | EXTERNAL | | | ine Ratio | performed at [facility] [place] | | LAB | | | | [address];[place] | | | | | | [address] | | | | + + + + + + | Calcium | 8.1 (L)Comment: Testing | 8.5 - 10.5 | EXTERNAL | | | | performed at [facility] [place] | mg/dL | LAB | | | | [address];[place] | | | | | | [address] | | | | + + + + + + | Protein, | 9.3 (H)Comment: Testing | 6.3 - 8.2 g/dL | EXTERNAL | | | Total | performed at [facility] [place] | | LAB | | | | [address];[place] | | | | | | [address] | | | | + + + + + + | Albumin | 3.3Comment: Testing | 3.3 - 4.8 g/dL | EXTERNAL | | | | performed at [facility] [place] | | LAB | | | | [address];[place] | | | | | | [address] | | | | + + + + + + | Globulin | 6.0 (H)Comment: Testing | 1.3 - 4.9 g/dL | EXTERNAL | | | | performed at [facility] [place] | | LAB | | | | [address];[place] | | | | | | [address] | | | | + + + + + + | A/G Ratio | 0.5 (L)Comment: Testing | 1.0 - 2.4 | EXTERNAL | | | | performed at [facility] [place] | | LAB | | | | [address];[place] | | | | | | [address] | | | | + + + + + + | Bilirubin | 0.4Comment: Testing | 0.1 - 1.5 mg/dL | EXTERNAL | | | Total | performed at [facility] [place] | | LAB | | | | [address];[place] | | | | | | [address] | | | | + + + + + + | ALP, | 129 (H)Comment: Testing | 35 - 115 U/L | EXTERNAL | | | External | performed at [facility] [place] | | LAB | | | | [address];[place] | | | | | | [address] | | | | + + + + + + | AST | 39Comment: Testing | 10 - 45 U/L | EXTERNAL | | | | performed at [facility] | | [place] | | | | [address];[place] | | | | | | [address] | | | | + + + + + + | ALT | 38Comment: Testing | 10 - 65 U/L | EXTERNAL | | | | performed at [facility] | | [place] | | | | [address];[place] | | | | | | [address] | | | | + + + [...] | | | | | at [facility] | | | | | | [address];[place] [address] | | | | + + + + + + | CK, Total | 151Comment: Testing | 30 - 240 U/L | EXTERNAL | | | | performed at [facility] | | LAB | | | | [address];[place] | | | | | | [address] | | | | + + + [...] | | | | performed at [facility];[address] | | | | | | [address];[place] | | | | | | [address] | | | | + + + + + + | aPTT, | 26Comment: Testing | 23 - 32 seconds | EXTERNAL | | | Patient | performed at [facility];[address] | | LAB | | | | [address];[place] | | | | | | [address] | | | | + + + + + + | CK-MB | 3.9 (H)Comment: Testing | 0.5 - 3.6 ng/mL | EXTERNAL | | | | performed at [facility];[address] | | LAB | | | | [address];[place] | | | | | | [address] | | | | + + + [...] | | | | performed at [facility];[address] | | | | | | [address];[place] | | | | | | [address] | | | | + + + [...]
--- OUTSIDE RECORDS SUMMARY | ~2019-05-06 | XMS | Encounter Summary ---
Demographics + + + | Address | [address] | | | [place] [address] | + + + | Home Phone | | + + + | Preferred Language | Unknown | + + + | Marital Status | Single | + + + | Gnosticist Affiliation | [id number] | + + + [...] Team Providers + +------+ + | Care Supply Chain Technician Name | Role | Phone | [...] [place], [place] | | | | | [place], [place] | [address] | | | | | [address] | | | | | | [phone] | | | +--------+ + + + [...] 0.03 m/s | | | MV Dec Lyon: 9.74 m/s2 MV DecT: 91.63 ms MV E Billy: 0.89 | | | m/s MV E/A Ratio: 26.03 MV PHT: 26.57 ms MVA By PHT: 8.27 | | | cm2 Septal e': 0.06 m/s Septal E/e': 12.90 Lateral e': | | | 0.09 m/s Lateral E/e': 8.96 RAP: 5 mmHg RVSP: 17.59 mmHg | | | TR maxP.59 mmHg TR Vmax: 1.77 m/s Econometrics Professor: NAIF | | | Authenticated by: Conor Kemptyler Report Date/Time: -- | | | [id number]_2:51:12 | | + + + + + [...] cmLVPWd: 1.14 cmLVOT | | Area: 3.33 [id number] Diam: 2.06 cm%FS: 26.43 %EF(Teich): 51.67 %ESV(Teich): [...] (A-L): | | 45.82 ml/m2LAAs A2C: 22.15 jt2SHCRR A-L A2C: 71.25 mlLALs A2C: 5.84 cmLAAs A4C: | | 28.64 [id number] A-L A4C: 104.24 mlLALs A4C: 6.68 cmRAAs: 14.65 [id number] A-L: | | 33.90 mlRAESV MOD: 34.21 mlRALs: 5.37 cmAV maxP.81 mmHgAV meanP.70 | | mmHgAV Vmax: 1.30 m/Sorin Vmean: 0.90 m/Sorin VTI: 24.74 cmAVA Vmax: 2.36 cm2AVA | | (VTI): 2.24 wt6GLLK maxP.41 mmHgLVOT meanP.88 mmHgLVSI Dopp: 27.63 | | ml/m2LVSV Dopp: 55.54 mlLVOT Vmax: 0.92 m/sLVOT Vmean: 0.64 m/sLVOT VTI: 16.66 | | cmMV A Billy: 0.03 m/sMV Dec Lyon: 9.74 m/s2MV DecT: 91.63 msMV E Billy: 0.89 m/sMV | | E/A Ratio: 26.03MV PHT: 26.57 msMVA By PHT: 8.27 im6Geohbp e': 0.06 m/sSeptal | | E/e': 12.90Lateral e': 0.09 m/sLateral E/e': 8.96RAP: 5 mmHgRVSP: 17.59 mmHgTR | | maxP.59 mmHgTR Vmax: 1.77 m/s Econometrics Professor: DHAuthenticated by: Conor | | [facility] Date/Time: -- [id number]:51:12 IMPRESSION: 1. The left ventricle is | [...] A Billy: 0.03 m/s | |MV Dec Lyon: 9.74 m/s2 | |MV DecT: 91.63 ms [...] |TR Vmax: 1.77 m/s | | | |Econometrics Professor: NAIF | |Authenticated by: Conor Garcia | |Report Date/Time: -- [id number]_1:51:12 | | | |IMPRESSION: | |1. The [...]
--- OUTSIDE RECORDS SUMMARY | ~2019-05-06 | XMS | Encounter Summary ---
Demographics + + + | Address | [address] | | | [place] [address] | + + + | Home Phone [...] Team Providers + +------+ + | Care Melt Supervisor Name | Role | Phone | + +------+ + | Yovani Santana MD | PCP | | + +------+ + Encounter Details +--------+ + + + + | Date | Type | Department | Care Team | Description | +--------+ + + + + | 03/26/ | Hospital | [facility] | Melendez, Gary, | Hypoxemia; Kyphosis | | 2014 | Encounter | [facility] | MD [address] | deformity of spine | | | | FUNCTION [address] | [place], [place] | | | | | [place], | [address] | | | | | [place] [address] | | | | | | [phone] | | | +--------+ + + + [...] 03/26/14Electronically signed by: Gary Melendez MD 03/27/2014 13:24[facility] | | [facility] | | | |No prior [...]
--- OUTSIDE RECORDS SUMMARY | ~2019-05-06 | XMS | Encounter Summary ---
Demographics + + + | Address | [address] | | | [place] [address] | + + + | Home Phone [...] Team Providers + +------+ + | Care Plasterer Apprentice Name | Role | Phone | [...] [address] | Dx) | | | | [place], | [place], [place] | | | | | [place] [address] | [address] | | | | | [phone] | | | +--------+ + + + [...]
--- OUTSIDE RECORDS SUMMARY | ~2019-05-06 | XMS | Encounter Summary ---
Demographics + + + | Address | [address] | | | [place] [address] | + + + | Home Phone [...] Team Providers + +------+ + | Care Bilingual Counter Sales Retail Name | Role | Phone | + +------+ + | Yovani Santana MD | PCP | | + +------+ + Encounter Details +--------+ + + + + | Date | Type | Department | Care Team | Description | +--------+ + + + + | 01/28/ | Hospital | [facility] | Jacob Smith, | | | 2014 - | Encounter | [facility] | MD Carmelo SANTAMARIA | | | | | CARE [address]LO[address] | [place] [address] | | | 02/03/ | | TIERA SANTAMARIA | [phone] | | | 2014 | | [place], [place] | | | | | | [address] | | | | | | [phone] | | | +--------+ + + + [...] Date of Service: 02/03/15 1029 Status: Signed Operator Receptionist: Jose Maria Espinal MD (Physician) Related Notes: Original Note by Jose Maria Espinal MD (Physician) filed at 02/04/15 1345 [facility] Service: Hospitalist Physician Discharge Summary Patient [...] lpm, Presented as a transfer from [facility] in [place] for fever of 101 and altered mental s tatus. She was discharged from [facility] on 01/09/15 for elevated troponin and [...] antibiotics. She was brought back in to [facility] for fever and confusion. UA and CXR reportedly negative there. SBP was 90s. She had formed stool there but en route here she did develop watery stool, tested C diff + here.".......per admitting MD/Dr. Smith . The patient was admitted to [facility] with a diagnosis of Clostridium difficile infection while she was being transferred from [facility] with fever and altered mental status. Th e patient has underlying immunosuppression secondary to a remote history of liver transplant on chronic immunosuppressive therapy with azathioprine and cyclosporin. Following her trans fletcher to [facility], she was started on oral vancomycin [...] medically stable for discharge to return to [facility] in [place] on Jan. ADDITIONAL ISSUES 1. Recurrent atelectasis. [...] days. I would urge managing physician at [facility] facility where the patient [facility] in [facility] to check anothe r magnesium level [...] Procedure: COLONOSCOPY; Surgeon: Juan Ramey MD; Location: [facility] ENDOSCOPY; Service: Gastroenterology; Laterality: N/A; Discharged [...] Follow up: Ki De Jesus DO [address] [facility] [address] [place] [address] Schedule an appointment as soon as possible [...] o these places to get your medications. [facility] - [place], [place] - [address] - lactobacillus granules [address] [place] [address] You may get the following medications from [...] 02/03/151608 Date of Service: 02/03/151608 Status: Signed Operator Receptionist: Pedro Partida RN (Registered Nurse) 02/03/151602 Discharge [...] Mental Status Oriented Anticipated Disposition Facility Type correction facility Prison Facility Other (comment) ([facility] in [place]) Disposition: Return to [facility] Transportation: Facility van to transport. All [...] 02/03/15899 Date of Service: 02/02/151521 Status: Signed Operator Receptionist: Jose Maria Espinal MD (Physician) Related Notes: Original Note by Jose Maria Espinal MD (Physician) filed at 02/02/15 1950 [facility] Service: Hospitalist Progress Note Pt: Cole Ernst AGE/SEX: 69 y.o. female : 1945 ROOM: [facility] History of Present Illness: " The patient is a 69 y.o. female with significant past medical history of liver transplant int he 90s on cyclosporine and imuran, chronic pain on methadone, CKD st 3, chronic home O2 of unclear etiology from 2-4 lp, Presented as a transfer from [facility] in [place] for fever of 101 and altered mental s tatus. She was discharged from [facility] on 01/09/15 for elevated troponin and [...] antibiotics. She was brought back in to [facility] for fever and confusion. UA and [...] sulfate. Case management [facility] [place] [facility] the patient in the next [...] contrast. Prior study for comparison: None FINDINGS: Rail Doweling Machine Operator 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 deg enerative [...] LA/Ao: 1.57 D-E Excursion: 2.11 cm E-F [place]: 0.09 m/s EPSS: 0.48 cm HR: 77.41 [...] TV A Billy: 0.66 m/s TV Dec [place]: 4.36 m/s2 TV Dec Time: 184.41 ms TV E Billy: 0.80 m/s TV E/A Rat io: 1.21 Getterer: NEDRA Authenticated by: Gil Martines MD Report [...] Procedure: COLONOSCOPY; Surgeon: Juan Ramey MD; Location: [facility] ENDOSCOPY; Service: Gastroenterology; Laterality: N/A; PROBLEM [...] by Jose Maria Espinal MD at 02/01/15 2355 Author: Jose Maria Espinal MD Service: Hospitalist Author Type: Physician Filed: 02/02/15 1523 Date of Service: 02/01/151716 Status: Signed Operator Receptionist: Jose Maria Espinal MD (Physician) Related Notes: Original Note by Jose Maria Espinal MD (Physician) filed at 02/02/15 1307 [facility] Service: Hospitalist Progress Note Pt: Cole Ernst AGE/SEX: 69 y.o. female : 1945 ROOM: [address] [place] [address] History of Present Illness: " The patient is a 69 y.o. female with significant past medical history of liver transplant int he 90s on cyclosporine and imuran, chronic pain on methadone, CKD st 3, chronic home O2 of unclear etiology from 2-4 lpm, Presented as a transfer from [facility] for fever of 101 and altered mental s tatus. She was discharged from [facility] on 01/09/15 for elevated troponin and [...] antibiotics. She was brought back in to [facility] for fever and confusion. UA and [...] establishing readiness of the faci lity in [place] to accept the patient in the next [...] contrast. Prior study for comparison: None FINDINGS: Rail Doweling Machine Operator 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 deg enerative [...] LA/Ao: 1.57 D-E Excursion: 2.11 cm E-F [place]: 0.09 m/s EPSS: 0.48 cm HR: 77.41 [...] TV A Billy: 0.66 m/s TV Dec [place]: 4.36 m/s2 TV Dec Time: 184.41 ms TV E Billy: 0.80 m/s TV E/A Rat io: 1.21 Getterer: NEDRA Authenticated by: Gil Martines MD Report [...] Procedure: COLONOSCOPY; Surgeon: Juan Ramey MD; Location: [facility]COPY; Service: Gastroenterology; Laterality: N/A; PROBLEM [...] Currently with normal liver function tests. 3. Jbnba-fk-ydbpcff liver disease, stage III. Creatinine level has [...] 01/31/152124 Date of Service: 01/31/151513 Status: Signed Operator Receptionist: Jose Maria Espinal MD (Physician) Related Notes: Original Note by Jose Maria Espinal MD (Physician) filed at 01/31/15 1523 [facility] Service: Hospitalist Progress Note Pt: Cole Ernst AGE/SEX: 69 y.o. female : 1945 ROOM: [address] [place] [address] History of Present Illness: " The patient is a 69 y.o. female with significant past medical history of liver transplant int he 90s on cyclosporine and imuran, chronic pain on methadone, CKD st 3, chronic home O2 of unclear etiology from 2-4 lpm, Presented as a transfer from [facility] in [place] for fever of 101 and altered mental s tatus. She was discharged from [facility] on 01/09/15 for elevated troponin and [...] antibiotics. She was brought back in to [facility] for fever and confusion. UA and [...] contrast. Prior study for comparison: None FINDINGS: Rail Doweling Machine Operator 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 deg enerative [...] LA/Ao: 1.57 D-E Excursion: 2.11 cm E-F [place]: 0.09 m/s EPSS: 0.48 cm HR: 77.41 [...] TV A Billy: 0.66 m/s TV Dec [place]: 4.36 m/s2 TV Dec Time: 184.41 ms TV E Billy: 0.80 m/s TV E/A Rat io: 1.21 Getterer: NEDRA Authenticated by: Gil Martines MD Report [...] Procedure: COLONOSCOPY; Surgeon: Juan Ramey MD; Location: [facility]; Service: Gastroenterology; Laterality: N/A; PROBLEM [...] 1313 Date of Service: 01/31/151312 Status: Signed Operator Receptionist: Catina Moon () Attempted visit. Pt sitting in chair sleeping. No family present. Chaplain Catina Moon onver alessandro Transaction, Provider Unknown - 01/31/2015 11:35 AM PDT Therapy Progress Note by Mahi Yanes PTA at 01/31/15 1135 Author: Mahi Yanes PTA Service: (none) Author Type: Painter And Decorator Apprentice Filed: 01/31/15 1410 Date of Service: 01/31/151134 Status: Signed Operator Receptionist: Mahi Yanes PTA (Painter And Decorator Apprentice) 01/31/15 1135 PT Last Visit PT Received [...] PDT Case Management by Gregg Keene MS, RUBBER TILE FLOOR LAYER at 01/31/15 1007 Author: Gregg Keene, MS, RUBBER TILE FLOOR LAYER Service: (none) Author Type: Credit Professional Filed: 01/31/15 1546 Date of Service: 01/31/15 1007 Status: Addendum Operator Receptionist: Gregg Keene , RUBBER TILE FLOOR LAYER (Credit Professional) Related Notes: Original Note by Gregg Yecenia MS, RUBBER TILE FLOOR LAYER (Credit Professional) filed at 01/31/15 1007 Discharge planning - CM faxed updated clinical to Gi at [facility]. Discharge form s on front of chart for MD signature. CM notified Gi of anticipated d/c this weekend. onver alessandro Transaction, Provider Unknown - 01/30/2015 5:05 PM PDT Therapy Progress Note by Gail Vernon PT at 01/30/15 1705 Author: Gail Vernon PT Service: (none) Author Type: Physical Therapist Filed: 01/30/15 6176 Date of Service: 01/30/15 1705 Status: Signed Operator Receptionist: Gail Vernon PT (Physical Therapist) 01/30/15 170 [...] Date of Service: 01/30/15 1414 Status: Signed Operator Receptionist: Jose Maria Espinal MD (Physician) Related Notes: Original Note by Jose Maria Espinal MD (Physician) filed at 01/30/15 6904 [facility] Service: Hospitalist Progress Note Pt: Cole [...] lpm, Presented as a transfer from [facility] in [place] for fever of 101 and altered mental s tatus. She was discharged from [facility] on 01/09/15 for elevated troponin and [...] antibiotics. She was brought back in to [facility] for fever and confusion. UA and [...] contrast. Prior study for comparison: None FINDINGS: Rail Doweling Machine Operator 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 deg enerative [...] LA/Ao: 1.57 D-E Excursion: 2.11 cm E-F [place]: 0.09 m/s EPSS: 0.48 cm HR: 77.41 [...] TV A Billy: 0.66 m/s TV Dec [place]: 4.36 m/s2 TV Dec Time: 184.41 ms TV E Billy: 0.80 m/s TV E/A Rat io: 1.21 Getterer: NEDRA Authenticated by: Gil Martines MD Report [...] Procedure: COLONOSCOPY; Surgeon: Juan Ramey MD; Location: [facility] END[facility]COPY; Service: Gastroenterology; Laterality: N/A; PROBLEM [...] Patient's live r functions remain normal. 3. Pnqey-bg-mopedtg kidney disease stage III. Creatinine level has [...] by Jose Maria Espinal MD at 01/29/15 226 Author: Jose Maria Espinal MD Service: Hospitalist Author Type: Physician Filed: 01/30/15 0957 Date of Service: 01/29/151650 Status: Signed Operator Receptionist: Jose Maria Espinal MD (Physician) Related Notes: Original Note by Jose Maria Espinal MD (Physician) filed at 01/29/152024 [facility] Service: Hospitalist Progress Note Pt: Cole Ernst AGE/SEX: 69 y.o. female : 1945 ROOM: [address] [place] [address] History of Present Illness: " The patient is a 69 y.o. female with significant past medical history of liver transplant int he 90s on cyclosporine and imuran, chronic pain on methadone, CKD st 3, chronic home O2 of unclear etiology from 2-4 lpm, Presented as a transfer from [facility] in [place] for fever of 101 and altered mental s tatus. She was discharged from [facility] on 01/09/15 for elevated troponin and [...] antibiotics. She was brought back in to [facility] for fever and confusion. UA and [...] contrast. Prior study for comparison: None FINDINGS: Rail Doweling Machine Operator 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 deg enerative [...] LA/Ao: 1.57 D-E Excursion: 2.11 cm E-F [place]: 0.09 m/s EPSS: 0.48 cm HR: 77.41 [...] TV A Billy: 0.66 m/s TV Dec [place]: 4.36 m/s2 TV Dec Time: 184.41 ms TV E Billy: 0.80 m/s TV E/A Rat io: 1.21 Getterer: NEDRA Authenticated by: Gil Martines MD Report [...] Procedure: COLONOSCOPY; Surgeon: Juan Ramey MD; Location: [facility] END[facility]COPY; Service: Gastroenterology; Laterality: N/A; PROBLEM [...] Date of Service: 01/29/15 1525 Status: Signed Operator Receptionist: Pedro Partida RN (Registered Nurse) 01/29/15 1521 [...] Mental Status Oriented Anticipated Disposition Facility Type correction facility Prison Facility Other (comment) ([facility] in [place]) Met with: patient and discussed discharge planning, Pt is a 69 y.o., female who was discharged from [facility] 2 wee ks ago to [facility]. Her sister, Renée Tipton is emergency contact, . Patient's PCP is: K[facility] DE JESUS Patient's insurance: Medicare Coverage concerns: Medication coverage/concerns: Community resources utilized / needed: Assistance in transportation: Identification of any specific education / training: Barriers to Discharge / Alternative housing needed: Anticipated DCP: Return to [facility] PEDRO PARTIDA RN onver alessandro Nicole Provider Unknown - 01/29/2015 8:55 AM PDT Therapy Progress Note by Barbara Edmond PT at 01/29/15 0855 Author: Barbraa Edmond PT Service: (none) Author Type: Physical Therapist Filed: 01/29/1533 Date of Service: 01/29/15854 Status: Signed Operator Receptionist: Barbara Edmond PT (Physical Therapist) 01/29/15 08 [...] to SNF after current hospital stay. Just CEMETERY COUNSELOR Júnior ADL's and Júnior mobility using 4ww for short room distances, had been using manual w/c in hallway at SNF. Reports a few falls at facility ov er last week, otherwise denies falls over last 6mos. Was getting therapies at facility. Prior Function Level of [place] Modified independent with ADLs;Modified independent with functional [...] Barriers to Discharge Physical Deficits Impacting Functional [place];Self-care Deficit s Impacting Functional [place];Equipment Needs (see comment);Pain Recommendation Comments Needs return [...] Barriers to Discharge Physical Deficits Impacting Functional [place];Self-care Deficit s Impacting Functional [place];Equipment Needs (see comment);Pain Recommendation Comments Needs return [...] 01/29/15831 Date of Service: 01/29/15830 Status: Signed Operator Receptionist: Malick Ramos RN (Registered Nurse) Infection Prevention Note: Patient stool is positive for C. Diff. Contact Enteric Precautions are required until furt her notice. Thank you. Malick Ramos RN, BA, Electric Engine Mechanic onver aelssandro Transaction, Provider Unknown - 01/28/2015 3:23 PM PDT Progress Notes by Jimena Duarte RPH at 01/28/151522 Author: Jimena Duarte RPH Service: (none) Author Type: Pharmacist Filed: 01/28/15 152 Date of Service: 01/28/151522 Status: Signed Operator Receptionist: Jimena Duarte RPH (Pharmacist) Zosyn Extended Infusion Initial Consult-Per Dr. Jacob Ernst 69 y.o. female CrCl cannot be calculated (Unknown ideal weight.). NEUTROPHILS ABS Date Value Ref Range Status 01/18/2015 3.26 1.90 - 7.40 K/uL Final Comment: Testing performed at [facility], [address] [place] [id number] CREATININE Date Value Ref Range Status 01/19/2015 0.96 0.50 - 1.00 mg/dL Final Comment: Testing performed at [facility], [address] [place] [address] Zosyn extended Infusion loading and maintenance dose guidelines Loading Dose 4.5 g IV Over 30 minutes CrCl >20 ml/min 3.375 g IV Q 8 hours Over 4 hours CrCl 10-20 ml/min 3.375 g IV Q 12 hours Over 4 hours CrCl <10, HD, PD Follow [facility] Dosage Adjustments in Renal Dysfunction Protocol [...] 01/28/151515 Date of Service: 01/28/151515 Status: Signed Operator Receptionist: Jimena Duarte RPH (Pharmacist) Renal Dosing Monitoring: [...] | | | | | [place] [address] | | | | + + + + + + | RED CELL | 2.72 (L)Comment: Testing | 3.70 - 5.10 | EXTERNAL | | | COUNT | performed at [facility], [address] | M/uL | LAB | | | | [address], | | | | | | [place] [address] | | | | + + + + + + | Hgb | 9.6 (L)Comment: Testing | 11.3 - 15.5 | EXTERNAL | | | | performed at [facility], [address] | g/dL | LAB | | | | [address], | | | | | | [place] [address] | | | | + + + + + + | Hematocrit, | 28.8 (L)Comment: Testing | 34.0 - 46.0 % | EXTERNAL | | | POC | performed at [facility], [address] | | LAB | | | | [address], | | | | | | [place] [address] | | | | + + + + + + | MCV | 106.0 (H)Comment: | 80.0 - 100.0 fl | EXTERNAL | | | | Testing performed at | | LAB | | | | [facility], [address] | | | | | | [place] | | | | | | [address] | | | | + + + + + + | MCH | 35.2 (H)Comment: Testing | 27.0 - 34.0 pg | EXTERNAL | | | | performed at [facility], [address] | | LAB | | | | [address], | | | | | | [place] [address] | | | | + + + + + + | MCHC | 33.2Comment: Testing | 32.0 - 35.5 | EXTERNAL | | | | performed at [facility], [address] | g/dL | LAB | | | | [address], | | | | | | [place] [address] | | | | + + + + + + | RDW-CV | 53.4 (H)Comment: Testing | 37 - 53 fl | EXTERNAL | | | | performed at [facility], [address] | | LAB | | | | [address], | | | | | | [place] [address] | | | | + + + + + + | Platelet | 216Comment: Testing | 150 - 400 K/uL | EXTERNAL | | | Count | performed at [facility], [address] | | LAB | | | Plasma | [address], | | | | | | [place] [address] | | | | + + + + + + | MPV | 10.5Comment: Testing | fl | EXTERNAL | | | | performed at [facility], [address] | | LAB | | | | [address], | | | | | | [place], [place] [address] | | | | + + + + + + | Differentia | MANUALComment: Testing | | EXTERNAL | | | l Type | performed at [facility], [address] | | LAB | | | | [address], | | | | | | [place], [place] [address] | | | | + + + + + + | Segmented | 35Comment: Testing | % | EXTERNAL | | | Neutrophils | performed at [facility], [address] | | LAB | | | Manual | [address], | | | | | | [place] [address] | | | | + + + + + + | % Bands | 1Comment: Testing | % | EXTERNAL | | | | performed at [facility], [address] | | LAB | | | | [address], | | | | | | [place] [address] | | | | + + + + + + | Lymphocytes | 44Comment: Testing | % | EXTERNAL | | | Manual | performed at [facility], [address] | | LAB | | | | [address], | | | | | | [place] [address] | | | | + + + + + + | Monocytes | 12Comment: Testing | % | EXTERNAL | | | Manual | performed at [facility], [address] | | LAB | | | | [address], | | | | | | [place] [address] | | | | + + + + + + | Eosinophils | 8Comment: Testing | % | EXTERNAL | | | Manual | performed at [facility], [address] | | LAB | | | | [address], | | | | | | [place] [address] | | | | + + + + + + | Absolute | 3.08Comment: Testing | 1.90 - 7.40 | EXTERNAL | | | Neutrophils | performed at [facility], [address] | K/uL | LAB | | | | [address], | | | | | | [place] [address] | | | | + + + + + + | Bands | 0.09Comment: Testing | 0.00 - 0.20 | EXTERNAL | | | Manual | performed at [facility], [address] | K/uL | LAB | | | | [address], | | | | | | [place] [address] | | | | + + + + + + | Absolute | 3.88Comment: Testing | 1.00 - 3.90 | EXTERNAL | | | Lymphocytes | performed at [facility], [address] | K/uL | LAB | | | | [address], | | | | | | [place] [address] | | | | + + + + + + | Absolute | 1.06 (H)Comment: Testing | 0.00 - 0.80 | EXTERNAL | | | Monocytes | performed at [facility], [address] | K/uL | LAB | | | | [address], | | | | | | [place] [address] | | | | + + + + + + | Absolute | 0.70 (H)Comment: Testing | 0.00 - 0.50 | EXTERNAL | | | Eosinophils | performed at [facility], [address] | K/uL | LAB | | | | [address], | | | | | | [place] [address] | | | | + + + + + + | RBC | NORMAL PLT MORPHComment: | | EXTERNAL | | | Morphology | NORMAL RBC MORPHTesting | | LAB | | | | performed at [facility], [address] | | | | | | [address], | | | | | | [place] [address] | | | | + + + [...] EXTERNAL | | | | performed at [facility], [address] | | LAB | | | | [address], | | | | | | [place] [address] | | | | + + + [...] EXTERNAL | | | | performed at [facility], [address] | | LAB | | | | [address], | | | | | | [place] [address] | | | | + + + [...] | | | | | [place] [address] | | | | + + + + + + | K | 4.0Comment: Testing | 3.5 - 4.9 | EXTERNAL | | | | performed at [facility], [address] | mmol/L | LAB | | | | [address], | | | | | | [place] [address] | | | | + + + + + + | Cl | 102Comment: Testing | 99 - 109 mmol/L | EXTERNAL | | | | performed at [facility], [address] | | LAB | | | | [address], | | | | | | [place] [address] | | | | + + + + + + | CO2 | 33 (H)Comment: Testing | 23 - 32 mmol/L | EXTERNAL | | | | performed at [facility], [address] | | LAB | | | | [address], | | | | | | [place] [address] | | | | + + + + + + | Anion Gap | 5Comment: Testing | 5 - 20 mmol/L | EXTERNAL | | | | performed at [facility], [address] | | LAB | | | | [address], | | | | | | [place] [address] | | | | + + + + + + | Glucose, | 105 (H)Comment: Testing | 65 - 99 mg/dL | EXTERNAL | | | Fasting | performed at [facility], [address] | | LAB | | | | [address], | | | | | | [place] [address] | | | | + + + + + + | BUN | 9Comment: Testing | 8 - 25 mg/dL | EXTERNAL | | | | performed at [facility], [address] | | LAB | | | | [address], | | | | | | [place] [address] | | | | + + + + + + | Creatinine | 0.82Comment: Testing | 0.50 - 1.00 | EXTERNAL | | | | performed at [facility], [address] | mg/dL | LAB | | | | [address], | | | | | | [place] [address] | | | | + + + + + + | BUN/Creatin | 11Comment: Testing | | EXTERNAL | | | ine Ratio | performed at [facility], [address] | | LAB | | | | [address], | | | | | | [place] [address] | | | | + + + + + + | Calcium | 8.5Comment: Testing | 8.5 - 10.5 | EXTERNAL | | | | performed at [facility], [address] | mg/dL | LAB | | | | [address], | | | | | | [place] [address] | | | | + + + + + + | Protein, | 6.3Comment: Testing | 6.3 - 8.2 g/dL | EXTERNAL | | | Total | performed at [facility], [address] | | LAB | | | | [address], | | | | | | [place] [address] | | | | + + + + + + | Albumin | 2.8 (L)Comment: Testing | 3.3 - 4.8 g/dL | EXTERNAL | | | | performed at [facility], [address] | | LAB | | | | [address], | | | | | | [place] [address] | | | | + + + + + + | Globulin | 3.5Comment: Testing | 1.3 - 4.9 g/dL | EXTERNAL | | | | performed at [facility], [address] | | LAB | | | | [address], | | | | | | [place] [address] | | | | + + + + + + | A/G Ratio | 0.8 (L)Comment: Testing | 1.0 - 2.4 | EXTERNAL | | | | performed at [facility], [address] | | LAB | | | | [address], | | | | | | [place] [address] | | | | + + + + + + | Bilirubin | 0.5Comment: Testing | 0.1 - 1.5 mg/dL | EXTERNAL | | | Total | performed at [facility], [address] | | LAB | | | | [address], | | | | | | [place] [address] | | | | + + + + + + | ALP, | 102Comment: Testing | 35 - 115 U/L | EXTERNAL | | | External | performed at [facility], [address] | | LAB | | | | [address], | | | | | | [place] [address] | | | | + + + + + + | AST | 53 (H)Comment: Testing | 10 - 45 U/L | EXTERNAL | | | | performed at [facility], [address] | | LAB | | | | [address], | | | | | | [place] [address] | | | | + + + + + + | ALT | 21Comment: Testing | 10 - 65 U/L | EXTERNAL | | | | performed at [facility], [address] | | LAB | | | | [address], | | | | | | [place] [address] | | | | + + + [...] | | | | | | at [facility], [address] | | | | | | [facility], | | | | | | [place] [address] | | | | + + + [...] EXTERNAL | | | | performed at [facility];[address] | mmol/L | LAB | | | | [address];[place], [place] | | | | | | [address] | | | | + + + [...] EXTERNAL | | | | performed at [facility];[address] | | LAB | | | | [address] [place] | | | | | | [address] | | | | + + + [...] EXTERNAL | | | | performed at [facility], [address] | K/uL | LAB | | | | [address], | | | | | | [place] [address] | | | | + + + + + + | RED CELL | 2.78 (L)Comment: Testing | 3.70 - 5.10 | EXTERNAL | | | COUNT | performed at [facility], [address] | M/uL | LAB | | | | [address], | | | | | | [place] [address] | | | | + + + + + + | Hgb | 9.7 (L)Comment: Testing | 11.3 - 15.5 | EXTERNAL | | | | performed at [facility], [address] | g/dL | LAB | | | | [address], | | | | | | [place] [address] | | | | + + + + + + | Hematocrit, | 29.6 (L)Comment: Testing | 34.0 - 46.0 % | EXTERNAL | | | POC | performed at [facility], [address] | | LAB | | | | [address], | | | | | | [place] [address] | | | | + + + + + + | MCV | 106.3 (H)Comment: | 80.0 - 100.0 fl | EXTERNAL | | | | Testing performed at | | LAB | | | | [facility], [address] [facility] | | | | | | [place] | | | | | | [address] | | | | + + + + + + | MCH | 34.8 (H)Comment: Testing | 27.0 - 34.0 pg | EXTERNAL | | | | performed at [facility], [address] | | LAB | | | | [address], | | | | | | [place] [address] | | | | + + + + + + | MCHC | 32.8Comment: Testing | 32.0 - 35.5 | EXTERNAL | | | | performed at [facility], [address] | g/dL | LAB | | | | [address], | | | | | | [place] [address] | | | | + + + + + + | RDW-CV | 53.8 (H)Comment: Testing | 37 - 53 fl | EXTERNAL | | | | performed at [facility], [address] | | LAB | | | | [address], | | | | | | [place] [address] | | | | + + + + + + | Platelet | 181Comment: Testing | 150 - 400 K/uL | EXTERNAL | | | Count | performed at [facility], [address] | | LAB | | | Plasma | [address], | | | | | | [place] [address] | | | | + + + + + + | MPV | 11.3Comment: Testing | fl | EXTERNAL | | | | performed at [facility], [address] | | LAB | | | | [address], | | | | | | [place] [address] | | | | + + + + + + | Differentia | MANUALComment: Testing | | EXTERNAL | | | l Type | performed at [facility], [address] | | LAB | | | | [address], | | | | | | [place] [address] | | | | + + + + + + | Segmented | 45Comment: Testing | % | EXTERNAL | | | Neutrophils | performed at [facility], [address] | | LAB | | | Manual | [address], | | | | | | [place] [address] | | | | + + + + + + | % Bands | 1Comment: Testing | % | EXTERNAL | | | | performed at [facility], [address] | | LAB | | | | [address], | | | | | | [place] [address] | | | | + + + + + + | Lymphocytes | 35Comment: Testing | % | EXTERNAL | | | Manual | performed at [facility], [address] | | LAB | | | | [address], | | | | | | [place], [place] [address] | | | | + + + + + + | Monocytes | 11Comment: Testing | % | EXTERNAL | | | Manual | performed at [facility], [address] | | LAB | | | | [address], | | | | | | [place] [address] | | | | + + + + + + | Eosinophils | 8Comment: Testing | % | EXTERNAL | | | Manual | performed at [facility], [address] | | LAB | | | | [address], | | | | | | [place] [address] | | | | + + + + + + | Absolute | 3.85Comment: Testing | 1.90 - 7.40 | EXTERNAL | | | Neutrophils | performed at [facility], [address] | K/uL | LAB | | | | [address], | | | | | | [place] [address] | | | | + + + + + + | Bands | 0.09Comment: Testing | 0.00 - 0.20 | EXTERNAL | | | Manual | performed at [facility], [address] | K/uL | LAB | | | | [address], | | | | | | [place] [address] | | | | + + + + + + | Absolute | 3.01Comment: Testing | 1.00 - 3.90 | EXTERNAL | | | Lymphocytes | performed at [facility], [address] | K/uL | LAB | | | | [address], | | | | | | [place] [address] | | | | + + + + + + | Absolute | 0.95 (H)Comment: Testing | 0.00 - 0.80 | EXTERNAL | | | Monocytes | performed at [facility], [address] | K/uL | LAB | | | | [address], | | | | | | [place] [address] | | | | + + + + + + | Absolute | 0.69 (H)Comment: Testing | 0.00 - 0.50 | EXTERNAL | | | Eosinophils | performed at [facility], [address] | K/uL | LAB | | | | [address], | | | | | | [place] [address] | | | | + + + + + + | RBC | 2+Comment: MACRONORMAL | | EXTERNAL | | | Morphology | PLT MORPHTesting | | LAB | | | | performed at [facility], [address] | | | | | | [address], | | | | | | [place] [address] | | | | | | | [...] | | | | | [place] [address] | | | | + + + [...] EXTERNAL | | | | performed at [facility], [address] | | LAB | | | | [address], | | | | | | [place] [address] | | | | + + [...] | | | | | [place] [address] | | | | + + + + + + | K | 3.2 (L)Comment: Testing | 3.5 - 4.9 | EXTERNAL | | | | performed at [facility], [address] | mmol/L | LAB | | | | [address], | | | | | | [place] [address] | | | | + + + + + + | Cl | 103Comment: Testing | 99 - 109 mmol/L | EXTERNAL | | | | performed at [facility], [address] | | LATA | | | | [address], | | | | | | [place] [address] | | | | + + + + + + | CO2 | 31Comment: Testing | 23 - 32 mmol/L | EXTERNAL | | | | performed at [facility], [address] | | LAB | | | | [address], | | | | | | [place] [address] | | | | + + + + + + | Anion Gap | 7Comment: Testing | 5 - 20 mmol/L | EXTERNAL | | | | performed at [facility], [address] | | LAB | | | | [address], | | | | | | [place] [address] | | | | + + + + + + | Glucose, | 104 (H)Comment: Testing | 65 - 99 mg/dL | EXTERNAL | | | Fasting | performed at [facility], [address] | | LAB | | | | [address], | | | | | | [place] [address] | | | | + + + + + + | BUN | 10Comment: Testing | 8 - 25 mg/dL | EXTERNAL | | | | performed at [facility], [address] | | LAB | | | | [address], | | | | | | [place] [address] | | | | + + + + + + | Creatinine | 0.83Comment: Testing | 0.50 - 1.00 | EXTERNAL | | | | performed at [facility], [address] | mg/dL | LAB | | | | [address], | | | | | | [place] [address] | | | | + + + [...] | | | | | [place] [address] | | | | + + + + + + | Protein, | 6.2 (L)Comment: Testing | 6.3 - 8.2 g/dL | EXTERNAL | | | Total | performed at [facility], [address] | | LAB | | | | [address], | | | | | | [place] [address] | | | | + + + + + + | Albumin | 2.7 (L)Comment: Testing | 3.3 - 4.8 g/dL | EXTERNAL | | | | performed at [facility], [address] | | LAB | | | | [address], | | | | | | [place] [address] | | | | + + + + + + | Globulin | 3.5Comment: Testing | 1.3 - 4.9 g/dL | EXTERNAL | | | | performed at [facility], [address] | | LAB | | | | [address], | | | | | | [place] [address] | | | | + + + + + + | A/G Ratio | 0.8 (L)Comment: Testing | 1.0 - 2.4 | EXTERNAL | | | | performed at [facility], [address] | | LAB | | | | [address], | | | | | | [place] [address] | | | | + + + + + + | Bilirubin | 0.5Comment: Testing | 0.1 - 1.5 mg/dL | EXTERNAL | | | Total | performed at [facility], [address] | | LAB | | | | [address], | | | | | | [place] [address] | | | | + + + + + + | ALP, | 98Comment: Testing | 35 - 115 U/L | EXTERNAL | | | External | performed at [facility], [address] | | LAB | | | | [address], | | | | | | [place] [address] | | | | + + + + + + | AST | 35Comment: Testing | 10 - 45 U/L | EXTERNAL | | | | performed at [facility], [address] | | LAB | | | | [address], | | | | | | [place] [address] | | | | + + + + + + | ALT | 15Comment: Testing | 10 - 65 U/L | EXTERNAL | | | | performed at [facility], [address] | | LAB | | | | [address], | | | | | | [place] [address] | | | | + + + [...] [address], | | | | | | [place] [address] | | | | + + + [...] EXTERNAL | | | | performed at [facility], [address] | | LAB | | | | [address], | | | | | | [place] [address] | | | | + + + [...] | | | B-12 | performed at [facility], [address] | pg/mL | LAB | | | | [address], | | | | | | [place] [address] | | | | + + [...] EXTERNAL | | | | performed at [facility], [address] | K/uL | LAB | | | | [address], | | | | | | [place] [address] | | | | + + + + + + | RED CELL | 2.72 (L)Comment: Testing | 3.70 - 5.10 | EXTERNAL | | | COUNT | performed at [facility], [address] | M/uL | LAB | | | | [address], | | | | | | [place] [address] | | | | + + + + + + | Hgb | 9.4 (L)Comment: Testing | 11.3 - 15.5 | EXTERNAL | | | | performed at [facility], [address] | g/dL | LAB | | | | [address], | | | | | | [place] [address] | | | | + + + + + + | Hematocrit, | 29.1 (L)Comment: Testing | 34.0 - 46.0 % | EXTERNAL | | | POC | performed at [facility], [address] | | LAB | | | | [address], | | | | | | [place] [address] | | | | + + + + + + | MCV | 107.3 (H)Comment: | 80.0 - 100.0 fl | EXTERNAL | | | | Testing performed at | | LAB | | | | [facility], [address] [facility] | | | | | | [place] | | | | | | [address] | | | | + + + + + + | MCH | 34.6 (H)Comment: Testing | 27.0 - 34.0 pg | EXTERNAL | | | | performed at [facility], [address] | | LAB | | | | [address], | | | | | | [place] [address] | | | | + + + + + + | MCHC | 32.2Comment: Testing | 32.0 - 35.5 | EXTERNAL | | | | performed at [facility], [address] | g/dL | LAB | | | | [address], | | | | | | [place] [address] | | | | + + + + + + | RDW-CV | 57.3 (H)Comment: Testing | 37 - 53 fl | EXTERNAL | | | | performed at [facility], [address] | | LAB | | | | [address], | | | | | | [place] [address] | | | | + + + + + + | Platelet | 174Comment: Testing | 150 - 400 K/uL | EXTERNAL | | | Count | performed at [facility], [address] | | LAB | | | Plasma | [address], | | | | | | [place] [address] | | | | + + + + + + | MPV | 10.9Comment: Testing | fl | EXTERNAL | | | | performed at [facility], [address] | | LAB | | | | [address], | | | | | | [place] [address] | | | | + + + + + + | Differentia | MANUALComment: Testing | | EXTERNAL | | | l Type | performed at [facility], [address] | | LAB | | | | [address], | | | | | | [place], [place] [address] | | | | + + + + + + | Segmented | 45Comment: Testing | % | EXTERNAL | | | Neutrophils | performed at [facility], [address] | | LAB | | | Manual | [address], | | | | | | [place], [place] [address] | | | | + + + + + + | % Bands | 1Comment: Testing | % | EXTERNAL | | | | performed at [facility], [address] | | LAB | | | | [address], | | | | | | [place], [place] [address] | | | | + + + + + + | Lymphocytes | 34Comment: Testing | % | EXTERNAL | | | Manual | performed at [facility], [address] | | LAB | | | | [address], | | | | | | [place] [address] | | | | + + + + + + | Monocytes | 11Comment: Testing | % | EXTERNAL | | | Manual | performed at [facility], [address] | | LAB | | | | [address], | | | | | | [place] [address] | | | | + + + + + + | Eosinophils | 9Comment: Testing | % | EXTERNAL | | | Manual | performed at [facility], [address] | | LAB | | | | [address], | | | | | | [place] [address] | | | | + + + + + + | Absolute | 3.77Comment: Testing | 1.90 - 7.40 | EXTERNAL | | | Neutrophils | performed at [facility], [address] | K/uL | LAB | | | | [address], | | | | | | [place] [address] | | | | + + + + + + | Bands | 0.08Comment: Testing | 0.00 - 0.20 | EXTERNAL | | | Manual | performed at [facility], [address] | K/uL | LAB | | | | [address], | | | | | | [place] [address] | | | | + + + + + + | Absolute | 2.84Comment: Testing | 1.00 - 3.90 | EXTERNAL | | | Lymphocytes | performed at [facility], [address] | K/uL | LAB | | | | [address], | | | | | | [place] [address] | | | | + + + + + + | Absolute | 0.92 (H)Comment: Testing | 0.00 - 0.80 | EXTERNAL | | | Monocytes | performed at [facility], [address] | K/uL | LAB | | | | [address], | | | | | | [place] [address] | | | | + + + + + + | Absolute | 0.75 (H)Comment: Testing | 0.00 - 0.50 | EXTERNAL | | | Eosinophils | performed at [facility], [address] | K/uL | LAB | | | | [address], | | | | | | [place] [address] | | | | + + + + + + | RBC | NORMAL PLT MORPHComment: | | EXTERNAL | | | Morphology | NORMAL RBC MORPHTesting | | LAB | | | | performed at [facility], [address] | | | | | | [address], | | | | | | [place] [address] | | | | + + [...] EXTERNAL | | | | performed at [facility], [address] | | LAB | | | | [address], | | | | | | [place] [address] | | | | + + + [...] | | | | | [place] [address] | | | | + + + [...] | | | | | [place] [address] | | | | + + + + + + | K | 3.8Comment: Testing | 3.5 - 4.9 | EXTERNAL | | | | performed at [facility], [address] | mmol/L | LAB | | | | [address], | | | | | | [place] [address] | | | | + + + [...] | | | | | [place] [address] | | | | + + + + + + | Anion Gap | 5Comment: Testing | 5 - 20 mmol/L | EXTERNAL | | | | performed at [facility], [address] | | LAB | | | | [address], | | | | | | [place] [address] | | | | + + + + + + | Glucose, | 112 (H)Comment: Testing | 65 - 99 mg/dL | EXTERNAL | | | Fasting | performed at [facility], [address] | | LAB | | | | [address], | | | | | | [place] [address] | | | | + + + + + + | BUN | 13Comment: Testing | 8 - 25 mg/dL | EXTERNAL | | | | performed at [facility], [address] | | LAB | | | | [address], | | | | | | [place] [address] | | | | + + + + + + | Creatinine | 0.74Comment: Testing | 0.50 - 1.00 | EXTERNAL | | | | performed at [facility], [address] | mg/dL | LAB | | | | [address], | | | | | | [place] [address] | | | | + + + + + + | BUN/Creatin | 18Comment: Testing | | EXTERNAL | | | ine Ratio | performed at [facility], [address] | | LAB | | | | [address], | | | | | | [place] [address] | | | | + + + + + + | Calcium | 8.0 (L)Comment: Testing | 8.5 - 10.5 | EXTERNAL | | | | performed at [facility], [address] | mg/dL | LAB | | | | [address], | | | | | | [place] [address] | | | | + + + + + + | Protein, | 5.9 (L)Comment: Testing | 6.3 - 8.2 g/dL | EXTERNAL | | | Total | performed at [facility], [address] | | LAB | | | | [address], | | | | | | [place] [address] | | | | + + + + + + | Albumin | 2.6 (L)Comment: Testing | 3.3 - 4.8 g/dL | EXTERNAL | | | | performed at [facility], [address] | | LAB | | | | [address], | | | | | | [place] [address] | | | | + + + + + + | Globulin | 3.3Comment: Testing | 1.3 - 4.9 g/dL | EXTERNAL | | | | performed at [facility], [address] | | LAB | | | | [address], | | | | | | [place] [address] | | | | + + + + + + | A/G Ratio | 0.8 (L)Comment: Testing | 1.0 - 2.4 | EXTERNAL | | | | performed at [facility], [address] | | LAB | | | | [address], | | | | | | [place] [address] | | | | + + + + + + | Bilirubin | 0.4Comment: Testing | 0.1 - 1.5 mg/dL | EXTERNAL | | | Total | performed at [facility], [address] | | LAB | | | | [address], | | | | | | [place] [address] | | | | + + + + + + | ALP, | 93Comment: Testing | 35 - 115 U/L | EXTERNAL | | | External | performed at [facility], [address] | | LAB | | | | [address], | | | | | | [place] [address] | | | | + + + + + + | AST | 23Comment: Testing | 10 - 45 U/L | EXTERNAL | | | | performed at [facility], [address] | | LAB | | | | [address], | | | | | | [place] [address] | | | | + + + + + + | ALT | 14Comment: Testing | 10 - 65 U/L | EXTERNAL | | | | performed at [facility], [address] | | LAB | | | | [address], | | | | | | [place] [address] | | | | + + + [...] | | | | | [place] [address] | | | | + + + [...] EXTERNAL | | | | performed at [facility], [address] | K/uL | LAB | | | | [address], | | | | | | [place] [address] | | | | + + + + + + | RED CELL | 2.78 (L)Comment: Testing | 3.70 - 5.10 | EXTERNAL | | | COUNT | performed at [facility], [address] | M/uL | LAB | | | | [address], | | | | | | [place] [address] | | | | + + + + + + | Hgb | 9.7 (L)Comment: Testing | 11.3 - 15.5 | EXTERNAL | | | | performed at [facility], [address] | g/dL | LAB | | | | [address], | | | | | | [place] [address] | | | | + + + + + + | Hematocrit, | 29.9 (L)Comment: Testing | 34.0 - 46.0 % | EXTERNAL | | | POC | performed at [facility], [address] | | LAB | | | | [address], | | | | | | [place] [address] | | | | + + + + + + | MCV | 107.5 (H)Comment: | 80.0 - 100.0 fl | EXTERNAL | | | | Testing performed at | | LAB | | | | [facility], [address] [facility] | | | | | | [place] | | | | | | [address] | | | | + + + + + + | MCH | 34.9 (H)Comment: Testing | 27.0 - 34.0 pg | EXTERNAL | | | | performed at [facility], [address] | | LAB | | | | [address], | | | | | | [place] [address] | | | | + + + + + + | MCHC | 32.5Comment: Testing | 32.0 - 35.5 | EXTERNAL | | | | performed at [facility], [address] | g/dL | LAB | | | | [address], | | | | | | [place] [address] | | | | + + + + + + | RDW-CV | 57.3 (H)Comment: Testing | 37 - 53 fl | EXTERNAL | | | | performed at [facility], [address] | | LAB | | | | [address], | | | | | | [place] [address] | | | | + + + + + + | Platelet | 162Comment: Testing | 150 - 400 K/uL | EXTERNAL | | | Count | performed at [facility], [address] | | LAB | | | Plasma | [address], | | | | | | [place] [address] | | | | + + + + + + | MPV | 11.6Comment: Testing | fl | EXTERNAL | | | | performed at [facility], [address] | | LAB | | | | [address], | | | | | | [place], [place] [address] | | | | + + + + + + | Differentia | MANUALComment: Testing | | EXTERNAL | | | l Type | performed at [facility], [address] | | LAB | | | | [address], | | | | | | [place], [place] [address] | | | | + + + + + + | Segmented | 31Comment: Testing | % | EXTERNAL | | | Neutrophils | performed at [facility], [address] | | LAB | | | Manual | [address], | | | | | | [place], [place] [address] | | | | + + + + + + | Lymphocytes | 52Comment: Testing | % | EXTERNAL | | | Manual | performed at [facility], [address] | | LAB | | | | [address], | | | | | | [place] [address] | | | | + + + [...] | LAB | | | | [address], | | | | | | [place] [address] | | | | + + + + + + | Absolute | 3.19Comment: Testing | 1.90 - 7.40 | EXTERNAL | | | Neutrophils | performed at [facility], [address] | K/uL | LAB | | | | [address], | | | | | | [place] [address] | | | | + + + + + + | Absolute | 5.36 (H)Comment: Testing | 1.00 - 3.90 | EXTERNAL | | | Lymphocytes | performed at [facility], [address] | K/uL | LAB | | | | [address], | | | | | | [place] [address] | | | | + + + + + + | Absolute | 1.13 (H)Comment: Testing | 0.00 - 0.80 | EXTERNAL | | | Monocytes | performed at [facility], [address] | K/uL | LAB | | | | [address], | | | | | | [place] [address] | | | | + + + + + + | Absolute | 0.62 (H)Comment: Testing | 0.00 - 0.50 | EXTERNAL | | | Eosinophils | performed at [facility], [address] | K/uL | LAB | | | | [address], | | | | | | [place] [address] | | | | + + + + + + | RBC | 2+Comment: MACRONORMAL | | EXTERNAL | | | Morphology | PLT MORPHTesting | | LAB | | | | performed at [facility], [address] | | | | | | [address], | | | | | | [place] [address] | | | | | | | [...] EXTERNAL | | | | performed at [facility], [address] | | LAB | | | | [address], | | | | | | [place] [address] | | | | + + + [...] EXTERNAL | | | | performed at [facility], [address] | | LAB | | | | [address], | | | | | | [place] [address] | | | | + + [...] | | | | | [place] [address] | | | | + + + + + + | K | 4.2Comment: Testing | 3.5 - 4.9 | EXTERNAL | | | | performed at [facility], [address] | mmol/L | LAB | | | | [address], | | | | | | [place] [address] | | | | + + + + + + | Cl | 112 (H)Comment: Testing | 99 - 109 mmol/L | EXTERNAL | | | | performed at [facility], [address] | | LAB | | | | [address], | | | | | | [place] [address] | | | | + + + + + + | CO2 | 27Comment: Testing | 23 - 32 mmol/L | EXTERNAL | | | | performed at [facility], [address] | | LAB | | | | [address], | | | | | | [place] [address] | | | | + + + + + + | Anion Gap | 4 (L)Comment: Testing | 5 - 20 mmol/L | EXTERNAL | | | | performed at [facility], [address] | | LAB | | | | [address], | | | | | | [place] [address] | | | | + + + + + + | Glucose, | 94Comment: Testing | 65 - 99 mg/dL | EXTERNAL | | | Fasting | performed at [facility], [address] | | LAB | | | | [address], | | | | | | [place] [address] | | | | + + + + + + | BUN | 19Comment: Testing | 8 - 25 mg/dL | EXTERNAL | | | | performed at [facility], [address] | | LAB | | | | [address], | | | | | | [place] [address] | | | | + + + + + + | Creatinine | 1.01 (H)Comment: Testing | 0.50 - 1.00 | EXTERNAL | | | | performed at [facility], [address] | mg/dL | LAB | | | | [address], | | | | | | [place] [address] | | | | + + + + + + | BUN/Creatin | 19Comment: Testing | | EXTERNAL | | | ine Ratio | performed at [facility], [address] | | LAB | | | | [address], | | | | | | [place] [address] | | | | + + + + + + | Calcium | 8.1 (L)Comment: Testing | 8.5 - 10.5 | EXTERNAL | | | | performed at [facility], [address] | mg/dL | LAB | | | | [address], | | | | | | [place] [address] | | | | + + + + + + | Protein, | 5.9 (L)Comment: Testing | 6.3 - 8.2 g/dL | EXTERNAL | | | Total | performed at [facility], [address] | | LAB | | | | [address], | | | | | | [place] [address] | | | | + + + + + + | Albumin | 2.5 (L)Comment: Testing | 3.3 - 4.8 g/dL | EXTERNAL | | | | performed at [facility], [address] | | LAB | | | | [address], | | | | | | [place] [address] | | | | + + + + + + | Globulin | 3.4Comment: Testing | 1.3 - 4.9 g/dL | EXTERNAL | | | | performed at [facility], [address] | | LAB | | | | [address], | | | | | | [place] [address] | | | | + + + + + + | A/G Ratio | 0.7 (L)Comment: Testing | 1.0 - 2.4 | EXTERNAL | | | | performed at [facility], [address] | | LAB | | | | [address], | | | | | | [place] [address] | | | | + + + + + + | Bilirubin | 0.3Comment: Testing | 0.1 - 1.5 mg/dL | EXTERNAL | | | Total | performed at [facility], [address] | | LAB | | | | [address], | | | | | | [place] [address] | | | | + + + + + + | ALP, | 98Comment: Testing | 35 - 115 U/L | EXTERNAL | | | External | performed at [facility], [address] | | LAB | | | | [address], | | | | | | [place] [address] | | | | + + + + + + | AST | 24Comment: Testing | 10 - 45 U/L | EXTERNAL | | | | performed at [facility], [address] | | LAB | | | | [address], | | | | | | [place] [address] | | | | + + + + + + | ALT | 14Comment: Testing | 10 - 65 U/L | EXTERNAL | | | | performed at [facility], [address] | | LAB | | | | [facility], | | | | | | [place] [address] | | | | + + + [...] W | | | | | | [facility], | | | | | | [place] [address] | | | | + + [...] [place] | | | | | | [address] | | | | + + +---- + + + | RED CELL | 2.93 (L)Comment: Testing | 3.7 0 - 5.10 | EXTERNAL | | | COUNT | performed at [facility], [address] | [address]/u [address] | LAB | | | | [address], | | | | | | [place] [address] | | | | + + +---- + + + | Hgb | 10.2 (L)Comment: Testing | 11. 3 - 15.5 | EXTERNAL | | | | performed at [facility], [address] | g/d L | LAB | | | | [address], | | | | | | [place] [address] | | | | + + +---- + + + | Hematocrit, | 31.6 (L)Comment: Testing | 34. 0 - 46.0 % | EXTERNAL | | | POC | performed at [facility], [address] | | LAB | | | | [address], | | | | | | [place] [address] | | | | + + +---- + + + | MCV | 107.8 (H)Comment: | 80. 0 - 100.0 fl | EXTERNAL | | | | Testing performed at | | LAB | | | | [facility], [address] | | | | | | [place] | | | | | | [address] | | | | + + +---- + + + | MCH | 34.8 (H)Comment: Testing | 27. 0 - 34.0 pg | EXTERNAL | | | | performed at [facility], [address] | | LAB | | | | [address], | | | | | | [place] [address] | | | | + + +---- + + + | MCHC | 32.3Comment: Testing | 32. 0 - 35.5 | EXTERNAL | | | | performed at [facility], [address] | g/d L | LAB | | | | [address], | | | | | | [place] [address] | | | | + + +---- + + + | RDW-CV | 57.3 (H)Comment: Testing | 37 - 53 fl | EXTERNAL | | | | performed at [facility], [address] | | LAB | | | | [address], | | | | | | [place] [address] | | | | + + +---- + + + | Platelet | 146 (L)Comment: Testing | 150 - 400 K/uL | EXTERNAL | | | Count | performed at [facility], [address] | | LAB | | | Plasma | [address], | | | | | | [place] [address] | | | | + + +---- + + + | MPV | 11.2Comment: Testing | fl | EXTERNAL | | | | performed at [facility], [address] | | LAB | | | | [address], | | | | | | [place] [address] | | | | + + +---- + + + | Differentia | MANUALComment: Testing | | EXTERNAL | | | l Type | performed at [facility], [address] | | LAB | | | | [address], | | | | | | [place] [address] | | | | + + +---- + + + | Segmented | 58Comment: Testing | % | EXTERNAL | | | Neutrophils | performed at [facility], [address] | | LAB | | | Manual | [address], | | | | | | [place] [address] | | | | + + +---- + + + | % Bands | 20Comment: Testing | % | EXTERNAL | | | | performed at [facility], [address] | | LAB | | | | [address], | | | | | | [place] [address] | | | | + + +---- + + + | Lymphocytes | 13Comment: Testing | % | EXTERNAL | | | Manual | performed at [facility], [address] | | LAB | | | | [address], | | | | | | [place] [address] | | | | + + +---- + + + | Monocytes | 7Comment: Testing | % | EXTERNAL | | | Manual | performed at [facility], [address] | | LAB | | | | [address], | | | | | | [place] [address] | | | | + + +---- + + + | Eosinophils | 2Comment: Testing | % | EXTERNAL | | | Manual | performed at [facility], [address] | | LAB | | | | [address], | | | | | | [place] [address] | | | | + + +---- + + + | Absolute | 9.23 (H)Comment: Testing | 1.9 0 - 7.40 | EXTERNAL | | | Neutrophils | performed at [facility], [address] | [address] L | LAB | | | | [address], | | | | | | [place] [address] | | | | + + +---- + + + | Bands | 3.18 (H)Comment: Testing | 0.0 0 - 0.20 | EXTERNAL | | | Manual | performed at [facility], [address] | [address] | LAB | | | | [address], | | | | | | [place] [address] | | | | + + +---- + + + | Absolute | 2.07Comment: Testing | 1.0 0 - 3.90 | EXTERNAL | | | Lymphocytes | performed at [facility], [address] | K/u L | LAB | | | | [address], | | | | | | [place] [address] | | | | + + +---- + + + | Absolute | 1.11 (H)Comment: Testing | 0.0 0 - 0.80 | EXTERNAL | | | Monocytes | performed at [facility], [address] | [address] | LAB | | | | [address], | | | | | | [place] [address] | | | | + + +---- + + + | Absolute | 0.32Comment: Testing | 0.0 0 - 0.50 | EXTERNAL | | | Eosinophils | performed at [facility], [address] | K/u L | LAB | | | | [address], | | | | | | [place] [address] | | | | + + +---- + + + | RBC | 2+Comment: | | EXTERNAL | | | Morphology | MACRO1+ANISONORMAL PLT | | LAB | | | | MORPHTesting performed | | | | | | at [facility], [address] | | | | | | [employer], | | | | | | [place] [address] | | | | | |Testing performed at [facility], [address] [place] [address] | | | | | | | [...] EXTERNAL | | | | performed at [facility], [address] | | LAB | | | | [address], | | | | | | [place] [address] | | | | + + + [...] | | | | | [place] [address] | | | | + + + [...] | | | | | [place] [address] | | | | + + + + + + | K | 3.9Comment: Testing | 3.5 - 4.9 | EXTERNAL | | | | performed at [facility], [address] | mmol/L | LAB | | | | [address], | | | | | | [place] [address] | | | | + + + + + + | Cl | 109Comment: Testing | 99 - 109 mmol/L | EXTERNAL | | | | performed at [facility], [address] | | LAB | | | | [address], | | | | | | [place] [address] | | | | + + + + + + | CO2 | 24Comment: Testing | 23 - 32 mmol/L | EXTERNAL | | | | performed at [facility], [address] | | LAB | | | | [address], | | | | | | [place] [address] | | | | + + + + + + | Anion Gap | 8Comment: Testing | 5 - 20 mmol/L | EXTERNAL | | | | performed at [facility], [address] | | LAB | | | | [address], | | | | | | [place] [address] | | | | + + [...] | | | | | | [place] [address] | | | | + + + + + + | Creatinine | 1.39 (H)Comment: Testing | 0.50 - 1.00 | EXTERNAL | | | | performed at [facility], [address] | mg/dL | LAB | | | | [address], | | | | | | [place] [address] | | | | + + + + + + | BUN/Creatin | 18Comment: Testing | | EXTERNAL | | | ine Ratio | performed at [facility], [address] | | LAB | | | | [address], | | | | | | [place] [address] | | | | + + + + + + | Calcium | 8.2 (L)Comment: Testing | 8.5 - 10.5 | EXTERNAL | | | | performed at [facility], [address] | mg/dL | LAB | | | | [address], | | | | | | [place] [address] | | | | + + + + + + | Protein, | 6.1 (L)Comment: Testing | 6.3 - 8.2 g/dL | EXTERNAL | | | Total | performed at [facility], [address] | | LAB | | | | [address], | | | | | | [place] [address] | | | | + + + + + + | Albumin | 2.4 (L)Comment: Testing | 3.3 - 4.8 g/dL | EXTERNAL | | | | performed at [facility], [address] | | LAB | | | | [address], | | | | | | [place] [address] | | | | + + + + + + | Globulin | 3.7Comment: Testing | 1.3 - 4.9 g/dL | EXTERNAL | | | | performed at [facility], [address] | | LAB | | | | [address], | | | | | | [place] [address] | | | | + + + + + + | A/G Ratio | 0.6 (L)Comment: Testing | 1.0 - 2.4 | EXTERNAL | | | | performed at [facility], [address] | | LAB | | | | [address], | | | | | | [place] [address] | | | | + + + + + + | Bilirubin | 0.4Comment: Testing | 0.1 - 1.5 mg/dL | EXTERNAL | | | Total | performed at [facility], [address] | | LAB | | | | [address], | | | | | | [place] [address] | | | | + + + + + + | ALP, | 111Comment: Testing | 35 - 115 U/L | EXTERNAL | | | External | performed at [facility], [address] | | LAB | | | | [address], | | | | | | [place] [address] | | | | + + + + + + | AST | 29Comment: Testing | 10 - 45 U/L | EXTERNAL | | | | performed at [facility], [address] | | LAB | | | | [address], | | | | | | [place] [address] | | | | + + + + + + | ALT | 14Comment: Testing | 10 - 65 U/L | EXTERNAL | | | | performed at [facility], [address] | | LAB | | | | [address], | | | | | | [place] [address] | | | | + + + [...] | | | | | | at [facility], [address] | | | | | | [employer] [address], | | | | | | [place] [address] | | | | + + [...] | | | | [facility], [address] [facility] | | | | | | [place] | | | | | | [address] | | | | + + + + + + | RED CELL | 3.12 (L)Comment: Testing | 3.70 - 5.10 | EXTERNAL | | | COUNT | performed at [facility], [address] | M/uL | LAB | | | | [address], | | | | | | [place] [address] | | | | + + + + + + | Hgb | 10.8 (L)Comment: Testing | 11.3 - 15.5 | EXTERNAL | | | | performed at [facility], [address] | g/dL | LAB | | | | [address], | | | | | | [place] [address] | | | | + + + + + + | Hematocrit, | 33.7 (L)Comment: Testing | 34.0 - 46.0 % | EXTERNAL | | | POC | performed at [facility], [address] | | LAB | | | | [address], | | | | | | [place] [address] | | | | + + + + + + | MCV | 108.0 (H)Comment: | 80.0 - 100.0 fl | EXTERNAL | | | | Testing performed at | | LAB | | | | [facility], [address] | | | | | | [place] | | | | | | [address] | | | | + + + + + + | MCH | 34.7 (H)Comment: Testing | 27.0 - 34.0 pg | EXTERNAL | | | | performed at [facility], [address] | | LAB | | | | [address], | | | | | | [place] [address] | | | | + + + + + + | MCHC | 32.1Comment: Testing | 32.0 - 35.5 | EXTERNAL | | | | performed at [facility], [address] | g/dL | LAB | | | | [address], | | | | | | [place] [address] | | | | + + + [...] | | | | | [place] [address] | | | | + + + + + + | MPV | 11.2Comment: Testing | fl | EXTERNAL | | | | performed at [facility], [address] | | LAB | | | | [address], | | | | | | [place], [place] [address] | | | | + + + + + + | Differentia | MANUALComment: Testing | | EXTERNAL | | | l Type | performed at [facility], [address] | | LAB | | | | [address], | | | | | | [place], [place] [address] | | | | + + + + + + | Segmented | 64Comment: Testing | % | EXTERNAL | | | Neutrophils | performed at [facility], [address] | | LAB | | | Manual | [address], | | | | | | [place] [address] | | | | + + + + + + | % Bands | 15Comment: Testing | % | EXTERNAL | | | | performed at [facility], [address] | | LAB | | | | [address], | | | | | | [place] [address] | | | | + + + + + + | % | 2Comment: Testing | % | EXTERNAL | | | Metamyelocy | performed at [facility], [address] | | LAB | | | [address] | [address], | | | | | | [place] [address] | | | | + + + + + + | Lymphocytes | 12Comment: Testing | % | EXTERNAL | | | Manual | performed at [facility], [address] | | LAB | | | | [address], | | | | | | [place] [address] | | | | + + + + + + | Monocytes | 6Comment: Testing | % | EXTERNAL | | | Manual | performed at [facility], [address] | | LAB | | | | [address], | | | | | | [place] [address] | | | | + + + + + + | Eosinophils | 1Comment: Testing | % | EXTERNAL | | | Manual | performed at [facility], [address] | | LAB | | | | [address], | | | | | | [place] [address] | | | | + + + + + + | Absolute | 11.48 (H)Comment: | 1.90 - 7.40 | EXTERNAL | | | Neutrophils | Testing performed at | K/uL | LAB | | | | [facility], [address] [facility] | | | | | | [place] | | | | | | [address] | | | | + + + + + + | Bands | 2.69 (H)Comment: Testing | 0.00 - 0.20 | EXTERNAL | | | Manual | performed at [facility], [address] | [address]L | LAB | | | | [address], | | | | | | [place] [address] | | | | + + + + + + | Absolute | 0.36 (H)Comment: Testing | K/uL | EXTERNAL | | | Metamyelocy | performed at [facility], [address] | | LAB | | | [address] | [address], | | | | | | [place] [address] | | | | + + + + + + | Absolute | 2.15Comment: Testing | 1.00 - 3.90 | EXTERNAL | | | Lymphocytes | performed at [facility], [address] | K/uL | LAB | | | | [address], | | | | | | [place] [address] | | | | + + + + + + | Absolute | 1.08 (H)Comment: Testing | 0.00 - 0.80 | EXTERNAL | | | Monocytes | performed at [facility], [address] | [address]L | LAB | | | | [address], | | | | | | [place] [address] | | | | + + + + + + | Absolute | 0.18Comment: Testing | 0.00 - 0.50 | EXTERNAL | | | Eosinophils | performed at [facility], [address] | K/uL | LAB | | | | [address], | | | | | | [place] [address] | | | | + + + + + + | RBC | 2+Comment: MACRONORMAL | | EXTERNAL | | | Morphology | PLT MORPHTesting | | LAB | | | | performed at [facility], [address] | | | | | | [address], | | | | | | [place] [address] | | | | | | | [...] EXTERNAL | | | | performed at [facility];[address] | mmol/L | LAB | | | | [address];[place] | | | | | | [address] | | | | + + + + + + | K | 3.8Comment: Testing | 3.5 - 4.9 | EXTERNAL | | | | performed at [facility];[address] | mmol/L | LAB | | | | [address];[place] | | | | | | [address] | | | | + + + + + + | Cl | 107Comment: Testing | 99 - 109 mmol/L | EXTERNAL | | | | performed at [facility];[address] | | LAB | | | | [address];[place] | | | | | | [address] | | | | + + + + + + | CO2 | 26Comment: Testing | 23 - 32 mmol/L | EXTERNAL | | | | performed at [facility];[address] | | LAB | | | | [address];[place] | | | | | | [address] | | | | + + + + + + | Anion Gap | 12Comment: Testing | 5 - 20 mmol/L | EXTERNAL | | | | performed at [facility];[address] | | LAB | | | | [address];[place] | | | | | | [address] | | | | + + + + + + | Glucose, | 127 (H)Comment: Testing | 65 - 99 mg/dL | EXTERNAL | | | Fasting | performed at [facility];[address] | | LAB | | | | [address];[place] | | | | | | [address] | | | | + + + + + + | BUN | 28 (H)Comment: Testing | 8 - 25 mg/dL | EXTERNAL | | | | performed at [facility];[address] | | LAB | | | | [address];[place] | | | | | | [address] | | | | + + + + + + | Creatinine | 1.8 (H)Comment: Testing | 0.50 - 1.00 | EXTERNAL | | | | performed at [facility];[address] | mg/dL | LAB | | | | [address];[place] | | | | | | [address] | | | | + + + + + + | BUN/Creatin | 16Comment: Testing | | EXTERNAL | | | ine Ratio | performed at [facility];[address] | | LAB | | | | [address];[place] | | | | | | [address] | | | | + + + + + + | Calcium | 7.6 (L)Comment: Testing | 8.5 - 10.5 | EXTERNAL | | | | performed at [facility];888 | mg/dL | LAB | | | | [address];[place] | | | | | | [address] | | | | + + + [...] | | | | | | at [facility];[address] | [address];[place] [address] | | | | + + + [...] | | | | | | at [facility];[address] [place] [address] | | | | | | [facility];[place] [address] | | | | + + + [...] LAB | | | | [facility], [address] [facility] | | | | | | [place] | | | | | | [address] | | | | + + +---- + + + | RED CELL | 3.07 (L)Comment: Testing | 3.7 0 - 5.10 | EXTERNAL | | | COUNT | performed at [facility], [address] | M/u L | LAB | | | | [address], | | | | | | [place] [address] | | | | + + +---- + + + | Hgb | 10.8 (L)Comment: Testing | 11. 3 - 15.5 | EXTERNAL | | | | performed at [facility], [address] | g/d L | LAB | | | | [address], | | | | | | [place] [address] | | | | + + +---- + + + | Hematocrit, | 32.7 (L)Comment: Testing | 34. 0 - 46.0 % | EXTERNAL | | | POC | performed at [facility], [address] | | LAB | | | | [address], | | | | | | [place] [address] | | | | + + +---- + + + | MCV | 106.4 (H)Comment: | 80. 0 - 100.0 fl | EXTERNAL | | | | Testing performed at | | LAB | | | | [facility], [address] | | | | | | [place] | | | | | | [address] | | | | + + +---- + + + | MCH | 35.1 (H)Comment: Testing | 27. 0 - 34.0 pg | EXTERNAL | | | | performed at [facility], [address] | | LAB | | | | [address], | | | | | | [place] [address] | | | | + + +---- + + + | MCHC | 33.0Comment: Testing | 32. 0 - 35.5 | EXTERNAL | | | | performed at [facility], [address] | g/d L | LAB | | | | [address], | | | | | | [place] [address] | | | | + + +---- + + + | RDW-CV | 56.0 (H)Comment: Testing | 37 - 53 fl | EXTERNAL | | | | performed at [facility], [address] | | LAB | | | | [address], | | | | | | [place] [address] | | | | + + +---- [...] | | | | | [place] [address] | | | | + + +---- + + + | Differentia | MANUALComment: Testing | | EXTERNAL | | | l Type | performed at [facility], [address] | | LAB | | | | [address] [place], | | | | | | [place] [address] | | | | + + +---- + + + | Segmented | 57Comment: Testing | % | EXTERNAL | | | Neutrophils | performed at [facility], [address] | | LAB | | | Manual | [address], | | | | | | [place] [address] | | | | + + +---- + + + | % Bands | 26Comment: Testing | % | EXTERNAL | | | | performed at [facility], [address] | | LAB | | | | [address] [place], | | | | | | [place] [address] | | | | + + +---- + + + | % | 4Comment: Testing | % | EXTERNAL | | | Metamyelocy | performed at [facility], [address] | | LAB | | | [address] | [address], | | | | | | [place] [address] | | | | + + +---- + + + | Lymphocytes | 9Comment: Testing | % | EXTERNAL | | | Manual | performed at [facility], [address] | | LAB | | | | [address], | | | | | | [place] [address] | | | | + + +---- + + + | Monocytes | 4Comment: Testing | % | EXTERNAL | | | Manual | performed at [facility], [address] | | LAB | | | | [address], | | | | | | [place] [address] | | | | + + +---- + + + | Absolute | 10.53 (H)Comment: | 1.9 0 - 7.40 | EXTERNAL | | | Neutrophils | Testing performed at | K/u L | LAB | | | | [facility], [address] | | | | | | [place] | | | | | | [address] | | | | + + +---- + + + | Bands | 4.80 (H)Comment: Testing | 0.0 0 - 0.20 | EXTERNAL | | | Manual | performed at [facility], [address] | K/u L | LAB | | | | [address] [place], | | | | | | [place] [address] | | | | + + +---- + + + | Absolute | 0.74 (H)Comment: Testing | K/u L | EXTERNAL | | | Metamyelocy | performed at [facility], [address] | | LAB | | | [address] | [address], | | | | | | [place] [address] | | | | + + +---- + + + | Absolute | 1.66Comment: Testing | 1.0 0 - 3.90 | EXTERNAL | | | Lymphocytes | performed at [facility], [address] | K/u L | LAB | | | | [address], | | | | | | [place] [address] | | | | + + +---- + + + | Absolute | 0.74Comment: Testing | 0.0 0 - 0.80 | EXTERNAL | | | Monocytes | performed at [facility], [address] | K/[address] L | LAB | | | | [address], | | | | | | [place] [address] | | | | + + +---- + + + | RBC | 2+Comment: | | EXTERNAL | | | Morphology | MACRO1+ANISONORMAL PLT | | LAB | | | | MORPHTesting performed | | | | | | at [facility], [address] | | | | | | [facility], | | | | | | [place] [address] | | | | | |Testing performed at [facility], [address] [facility], [place] [address] | | | | | | | [...] EXTERNAL | | | | performed at [facility];[address] | | LAB | | | | [address];[place], [place] | | | | | | [address] | | | | + + + [...] | | | | | performed at [facility];[address] | | | | | | [address];[place] | | | | | | [address] | | | | + + + [...] EXTERNAL | | | | performed at [facility];[address] | mmol/L | LAB | | | | [address];[place], [place] | | | | | | [address] | | | | + + [...] EXTERNAL | | | | performed at [facility];[address] | mmol/L | LAB | | | | [address];[place] | | | | | | [address] | | | | + + + + + + | K | 4.4Comment: SPECIMEN | 3.5 - 4.9 | EXTERNAL | | | | SLIGHTLY | mmol/L | LAB | | | | HEMOLYZEDTesting | | | | | | performed at [facility];[address] | | | | | | [address];[place] | | | | | | [address] | | | | + + + + + + | Cl | 106Comment: Testing | 99 - 109 mmol/L | EXTERNAL | | | | performed at [facility];[address] | | LAB | | | | [address];[place] | | | | | | [address] | | | | + + + + + + | CO2 | 24Comment: Testing | 23 - 32 mmol/L | EXTERNAL | | | | performed at [facility];[address] | | LAB | | | | [address];[place] | | | | | | [address] | | | | + + + + + + | Anion Gap | 12Comment: Testing | 5 - 20 mmol/L | EXTERNAL | | | | performed at [facility];[address] | | LAB | | | | [address];[place] | | | | | | [address] | | | | + + + + + + | Glucose, | 103 (H)Comment: Testing | 65 - 99 mg/dL | EXTERNAL | | | Fasting | performed at [facility];[address] | | LAB | | | | [address];[place] | | | | | | [address] | | | | + + + + + + | BUN | 22Comment: Testing | 8 - 25 mg/dL | EXTERNAL | | | | performed at [facility];[address] | | LAB | | | | [address];[place] | | | | | | [address] | | | | + + + + + + | Creatinine | 1.9 (H)Comment: Testing | 0.50 - 1.00 | EXTERNAL | | | | performed at [facility];888 | mg/dL | LAB | | | | [address];[place] | | | | | | [address] | | | | + + + + + + | BUN/Creatin | 12Comment: Testing | | EXTERNAL | | | ine Ratio | performed at [facility];[address] | | LAB | | | | [address];[place] | | | | | | [address] | | | | + + + + + + | Calcium | 7.4 (L)Comment: Testing | 8.5 - 10.5 | EXTERNAL | | | | performed at [facility];888 | mg/dL | LAB | | | | [address];[place] | | | | | | [address] | | | | + + + + + + | Protein, | 6.5Comment: Testing | 6.3 - 8.2 g/dL | EXTERNAL | | | Total | performed at [facility];[address] | | LAB | | | | [address];[place] | | | | | | [address] | | | | + + + + + + | Albumin | 2.2 (L)Comment: Testing | 3.3 - 4.8 g/dL | EXTERNAL | | | | performed at [facility];[address] | | LAB | | | | [address];[place] | | | | | | [address] | | | | + + + + + + | Globulin | 4.4Comment: Testing | 1.3 - 4.9 g/dL | EXTERNAL | | | | performed at [facility];[address] | | LAB | | | | [address];[place] | | | | | | [address] | | | | + + + + + + | A/G Ratio | 0.5 (L)Comment: Testing | 1.0 - 2.4 | EXTERNAL | | | | performed at [facility];[address] | | LAB | | | | [address];[place] | | | | | | [address] | | | | + + + + + + | Bilirubin | 0.5Comment: Testing | 0.1 - 1.5 mg/dL | EXTERNAL | | | Total | performed at [facility];[address] | | LAB | | | | [address];[place] | | | | | | [address] | | | | + + + + + + | ALP, | 148 (H)Comment: Testing | 35 - 115 U/L | EXTERNAL | | | External | performed at [facility];[address] | | LAB | | | | [address];[place] | | | | | | [address] | | | | + + + + + + | AST | 41Comment: SPECIMEN | 10 - 45 U/L | EXTERNAL | | | | SLIGHTLY | | LAB | | | | HEMOLYZEDTesting | | | | | | performed at [facility];[address] | | | | | | [address];[place] | | | | | | [address] | | | | + + + + + + | ALT | 23Comment: Testing | 10 - 65 U/L | EXTERNAL | | | | performed at [facility];[address] | | LAB | | | | [address] Bl[address];[place] | | | | | | [address] | | | | + + + [...] | | | | | | at [facility];[address] | | | | | | Aly;[place] [id number] | | | | + + + [...] WORKUP | | | Testing performed at [facility], [address], [place] | | | [address] | | + + + + +---------+ [...] EXTERNAL | | | | performed at [facility], [address] | | LAB | | | | [place], | | | | | | [place] [id number] | | | | + + + + + + | Clarity | CLOUDYComment: Testing | | EXTERNAL | | | | performed at [facility], [address] | | LAB | | | | [place], | | | | | | [place] [address] | | | | + + + + + + | Specific | 1.015Comment: Testing | 1.002 - 1.030 | EXTERNAL | | | [place] | performed at [facility], [address] | | LAB | | | | [address], | | | | | | [place] [address] | | | | + + + + + + | Leukocyte | SMALL (A)Comment: | | EXTERNAL | | | Esterase, | Testing performed at | | LAB | | | Urine | [facility], [address] | | | | | | [place] | | | | | | [address] | | | | + + + + + + | Nitrite, | NEGATIVEComment: Testing | | EXTERNAL | | | Urine | performed at [facility], [address] | | LAB | | | | [address], | | | | | | [place] [address] | | | | + + + + + + | Urobilinoge | 0.2Comment: Testing | mg/dL | EXTERNAL | | | n, Urine | performed at [facility], [address] | | LAB | | | | [address], | | | | | | [place] [address] | | | | + + + + + + | Protein, | 100 (A)Comment: Testing | mg/dL | EXTERNAL | | | Urine | performed at [facility], [address] | | LAB | | | | [place], | | | | | | [place] [id number] | | | | + + + + + + | pH, Urine | 6.5Comment: Testing | 5.0 - 8.0 | EXTERNAL | | | | performed at [facility], [address] | | LAB | | | | [place], | | | | | | [place] [address] | | | | + + + + + + | Blood, | MODERATE (A)Comment: | | EXTERNAL | | | Urine | Testing performed at | | LAB | | | | [facility], [address] | | | | | | [place] | | | | | | [address] | | | | + + + + + + | Ketones | NEGATIVEComment: Testing | mg/dL | EXTERNAL | | | | performed at [facility], [address] | | LAB | | | | [address], | | | | | | [place] [id number] | | | | + + + + + + | Bilirubin, | NEGATIVEComment: Testing | | EXTERNAL | | | Urine | performed at [facility], [address] | | LAB | | | | [address], | | | | | | [place] [address] | | | | + + + + + + | Glucose, | NEGATIVEComment: Testing | mg/dL | EXTERNAL | | | Urine | performed at [facility], [address] | | LAB | | | | [address], | | | | | | [place] [address] | | | | + + + [...] | | | | | [place] [address] | | | | + + + + + + | RBC, UA | 1-5Comment: Testing | 0 - 5 /hpf | EXTERNAL | | | | performed at [facility], [address] | | LAB | | | | [address], | | | | | | [place] [address] | | | | + + + + + + | Epithelial | 0-2Comment: Testing | /lpf | EXTERNAL | | | Cells | performed at [facility], [address] | | LAB | | | | [address], | | | | | | [place] [address] | | | | + + + + + + | Bacteria, | TRACE (A)Comment: | | EXTERNAL | | | UA | Testing performed at | | LAB | | | | [facility], [address] | | | | | | [place] | | | | | | [address] | | | | + + + + + + | Urinalysis | CULTURE TO | | EXTERNAL | | | Comments | FOLLOWComment: Testing | | LAB | | | | performed at [facility], [address] | | | | | | [place], | | | | | | [place] [address] | | | | + + [...] EXTERNAL | | | | performed at [facility];[address] | mg/dL | LAB | | | | Tiera Santamaria;[place] | | | | | | [address] | | | | + + + [...] LAB | | C.diffAbnormal Testing performed at [facility];[address] [place] [address] | | | [phone] NAP1 BI 027 NAP1 BI | | | PRESUMPTIVE NEGATIVE Detection of 027 NAP1 BI strains of C. difficile | | | is presumptive and for epidemiological purposes and not intended to | | | guide or monitor treatment for C. difficile infections. Testing | | | performed at [facility];[address] [place] [address];[place] [address] | | + + + + +---------+ [...] EXTERNAL | | | | performed at [facility];888 | mmol/L | LAB | | | | [address];[place], [place] | | | | | | [address] | | | | + + + [...] | | | | | | at [facility];[address] | | | | | [facility];[place] [address] | | | | + + + [...] EXTERNAL | | | | performed at [facility];888 | | LAB | | | | [address];[place], [place] | | | | | | [address] | | | | + + + [...] | | | | | | ACUTE NE Testing | | | | | | performed at [facility];[address] | | | | | | [facility];[place], [place] | | | | | | [address] | | | | + + + [...] K/uL | LAB | | | | [facility];[address] | | | | | | Aly;[place] [address] | | | | + + + + + + | RED CELL | 3.66 (L)Comment: Testing | 3.70 - 5.10 | EXTERNAL | | | COUNT | performed at [facility];888 | M/uL | LAB | | | | [address];[place] | | | | | | [address] | | | | + + + + + + | Hgb | 12.6Comment: Testing | 11.3 - 15.5 | EXTERNAL | | | | performed at [facility];888 | g/dL | LAB | | | | [address];[place] | | | | | | [address] | | | | + + + + + + | Hematocrit, | 38.9Comment: Testing | 34.0 - 46.0 % | EXTERNAL | | | POC | performed at [facility];[address] | | LAB | | | | [address];[place] | | | | | | [address] | | | | + + + + + + | MCV | 106.3 (H)Comment: | 80.0 - 100.0 fl | EXTERNAL | | | | Testing performed at | | LAB | | | | [facility];[address] | | | | [address];[place] [address] | | | | + + + + + + | MCH | 34.3 (H)Comment: Testing | 27.0 - 34.0 pg | EXTERNAL | | | | performed at [facility];[address] | | LAB | | | | [address];[place] | | | | | | [address] | | | | + + + + + + | MCHC | 32.3Comment: Testing | 32.0 - 35.5 | EXTERNAL | | | | performed at [facility];888 | g/dL | LAB | | | | [address];[place] | | | | | | [address] | | | | + + + + + + | RDW-CV | 54.7 (H)Comment: Testing | 37 - 53 fl | EXTERNAL | | | | performed at [facility];[address] | | LAB | | | | [address];[place] | | | | | | [address] | | | | + + + + + + | Platelet | 167Comment: Testing | 150 - 400 K/uL | EXTERNAL | | | Count | performed at [facility];[address] | | LAB | | | Plasma | [address];[place] | | | | | | [address] | | | | + + + + + + | MPV | 10.6Comment: Testing | fl | EXTERNAL | | | | performed at [facility];[address] | | LAB | | | | [address];[place] | | | | | | [address] | | | | + + + + + + | Differentia | MANUALComment: Testing | | EXTERNAL | | | l Type | performed at [facility];[address] | | LAB | | | | [address];[place] | | | | | | [address] | | | | + + + + + + | Segmented | 54Comment: Testing | % | EXTERNAL | | | Neutrophils | performed at [facility];[address] | | LAB | | | Manual | [address];[place] | | | | | | [address] | | | | + + + + + + | % Bands | 18Comment: Testing | % | EXTERNAL | | | | performed at [facility];[address] | | LAB | | | | [address];[place] | | | | | | [address] | | | | + + + + + + | Lymphocytes | 16Comment: Testing | % | EXTERNAL | | | Manual | performed at [facility];[address] | | LAB | | | | [address];[place] | | | | | | [address] | | | | + + + + + + | Monocytes | 12Comment: Testing | % | EXTERNAL | | | Manual | performed at [facility];[address] | | LAB | | | | [address];[place] | | | | | | [address] | | | | + + + + + + | Absolute | 10.69 (H)Comment: | 1.90 - 7.40 | EXTERNAL | | | Neutrophils | Testing performed at | K/uL | LAB | | | | [facility];[address] | | | | | [address];[place] [address] | | | | + + + + + + | Bands | 3.56 (H)Comment: Testing | 0.00 - 0.20 | EXTERNAL | | | Manual | performed at [facility];888 | K/uL | LAB | | | | [address];[place] | | | | | | [address] | | | | + + + + + + | Absolute | 3.16Comment: Testing | 1.00 - 3.90 | EXTERNAL | | | Lymphocytes | performed at [facility];888 | K/uL | LAB | | | | [address];[place] | | | | | | [address] | | | | + + + + + + | Absolute | 2.37 (H)Comment: Testing | 0.00 - 0.80 | EXTERNAL | | | Monocytes | performed at [facility];888 | K/uL | LAB | | | | [address];[place] | | | | | | [address] | | | | + + + + + + | Platelet | ADEQUATEComment: Testing | | EXTERNAL | | | Estimate | performed at [facility];[address] | | LAB | | | | [address];[place] | | | | | | [address] | | | | + + + + + + | RBC | NORMAL PLT MORPHComment: | | EXTERNAL | | | Morphology | 1+ANISOTesting | | LAB | | | | performed at [facility];[address] | | | | | | [address];[place] | | | | | | [address] | | | | | | | [...] EXTERNAL | | | | performed at [facility];888 | uIU/mL | LAB | | | | [address];[place], [place] | | | | | | [address] | | | | + + + [...] EXTERNAL | | | | performed at [facility];[address] | | LAB | | | | [address];[place], [place] | | | | | | [address] | | | | + + + [...] | | LAB | | | | [facility];[address] | | | | | | [address];[place] [address] | | | | + + + [...] EXTERNAL | | | | performed at [facility];[address] | | LAB | | | | [address];[place], [place] | | | | | | [address] | | | | + + + [...] EXTERNAL | | | | performed at [facility];[address] | | LAB | | | | [address];[place] | | | | | | [address] | | | | + + + [...] EXTERNAL | | | | performed at [facility];888 | mmol/L | LAB | | | | [address];[place] | | | | | | [address] | | | | + + + + + + | K | 3.4 (L)Comment: Testing | 3.5 - 4.9 | EXTERNAL | | | | performed at [facility];888 | mmol/L | LAB | | | | [address];[place] | | | | | | [address] | | | | + + + + + + | Cl | 101Comment: Testing | 99 - 109 mmol/L | EXTERNAL | | | | performed at [facility];[address] | | LAB | | | | [address];[place] | | | | | | [address] | | | | + + + + + + | CO2 | 27Comment: Testing | 23 - 32 mmol/L | EXTERNAL | | | | performed at [facility];[address] | | LAB | | | | [address];[place] | | | | | | [address] | | | | + + + + + + | Anion Gap | 12Comment: Testing | 5 - 20 mmol/L | EXTERNAL | | | | performed at [facility];[address] | | LAB | | | | [address];[place] | | | | | | [address] | | | | + + + + + + | Glucose, | 106 (H)Comment: Testing | 65 - 99 mg/dL | EXTERNAL | | | Fasting | performed at [facility];[address] | | LAB | | | | [address];[place] | | | | | | [address] | | | | + + + + + + | BUN | 18Comment: Testing | 8 - 25 mg/dL | EXTERNAL | | | | performed at [facility];[address] | | LAB | | | | [address];[place] | | | | | | [address] | | | | + + + + + + | Creatinine | 1.3 (H)Comment: Testing | 0.50 - 1.00 | EXTERNAL | | | | performed at [facility];888 | mg/dL | LAB | | | | [address];[place] | | | | | | [address] | | | | + + + + + + | BUN/Creatin | 14Comment: Testing | | EXTERNAL | | | ine Ratio | performed at [facility];[address] | | LAB | | | | [address];[place] | | | | | | [address] | | | | + + + + + + | Calcium | 7.3 (L)Comment: Testing | 8.5 - 10.5 | EXTERNAL | | | | performed at [facility];888 | mg/dL | LAB | | | | [address];[place] | | | | | | [address] | | | | + + + + + + | Protein, | 7.9Comment: Testing | 6.3 - 8.2 g/dL | EXTERNAL | | | Total | performed at [facility];[address] | | LAB | | | | [address];[place] | | | | | | [address] | | | | + + + + + + | Albumin | 2.5 (L)Comment: Testing | 3.3 - 4.8 g/dL | EXTERNAL | | | | performed at [facility];[address] | | LAB | | | | [address];[place] | | | | | | [address] | | | | + + + + + + | Globulin | 5.4 (H)Comment: Testing | 1.3 - 4.9 g/dL | EXTERNAL | | | | performed at [facility];[address] | | LAB | | | | [address];[place] | | | | | | [address] | | | | + + + + + + | A/G Ratio | 0.5 (L)Comment: Testing | 1.0 - 2.4 | EXTERNAL | | | | performed at [facility];[address] | | LAB | | | | [address];[place] | | | | | | [address] | | | | + + + + + + | Bilirubin | 0.6Comment: Testing | 0.1 - 1.5 mg/dL | EXTERNAL | | | Total | performed at [facility];[address] | | LAB | | | | [address];[place] | | | | | | [address] | | | | + + + + + + | ALP, | 188 (H)Comment: Testing | 35 - 115 U/L | EXTERNAL | | | External | performed at [facility];[address] | | LAB | | | | [address];[place] | | | | | | [address] | | | | + + + + + + | AST | 51 (H)Comment: Testing | 10 - 45 U/L | EXTERNAL | | | | performed at [facility];[address] | | LAB | | | | [address];[place] | | | | | | [address] | | | | + + + + + + | ALT | 30Comment: Testing | 10 - 65 U/L | EXTERNAL | | | | performed at [facility];[address] | | LAB | | | | [address];[place] | | | | | | [address] | | | | + + + [...] | | | | | | at [facility];[address] | | | | [address];[place] [address] | | | | + + + [...] Conversion - 01/05/2019 4:32 AM PDT COLE [id number] yearsXR | | CHEST 1 VIEW01/28/2015 2:40 [...]
--- OUTSIDE RECORDS SUMMARY | ~2019-05-06 | XMS | Clinical Summary ---
Demographics + + + | Address | [address] | | | [place] [address] | + + + | Home Phone | | + + + | Preferred Language | Unknown | + + + | Marital Status | Unknown | + + + | Zoroastrianism Affiliation | Unknown | + + + | Race | Unknown | + + + | Ethnic Group | Unknown | + + + Author + + + | Author | [facility] | + + + | Organization | [facility] | + + + | Address | Unknown | + + + | Phone | Unavailable | + + + Care Team Providers + +------+ + | Care Branch Store Manager Name | Role | Phone | + +------+ + PCP | Unavailable | + +------+ + Source Comments JAYDEN is fully live on both EpicCare Ambulatory and EpicCare InPatient.[facility] Allergies Not on File Medications [...]
--- OUTSIDE RECORDS SUMMARY | ~2019-05-06 | XMS | Encounter Summary ---
Demographics + + + | Address | [address] | | | [place] [address] | + + + | Home Phone [...] Providers + +------+ + | Care Lead Ios Developer Name | Role | Phone | + +------+ + | Yovani Santana MD | PCP | | + +------+ + Encounter Details +--------+ + + + + | Date | Type | Department | Care Team | Description | +--------+ + + + + | 05/10/ | Hospital | [facility] | Gary Melendez, | Hypoxemia; | | 2014 | Encounter | MED CTR XRAY [address] | MD [address] | Restrictive lung | | | | [place] | [place], [place] | disease | | | | [place] [address] | [address] | | | | | [phone] | | | | | | | [...] + | MISCELLANEOUS LAB | | | [phone] | + +---------+ + + | MISCELANIOUS LAB | | | [phone] | + +---------+ + + documented in this encounter Visit Diagnoses + + | Diagnosis | + + | Hypoxemia | + + | Restrictive lung disease Other diseases of lung, not elsewhere classified | + + documented in this encounter"
--- OUTSIDE RECORDS SUMMARY | ~2019-05-06 | XMS | Encounter Summary ---
Demographics + + + | Address | [address] | | | [place] [address] | + + + | Home Phone [...] Team Providers + +------+ + | Care Oyster Planter Name | Role | Phone | + [...] | | | CONSULT | [place] | [place] [address] | | | | | | [place], [place] | Phone: | | | | | | [address] | [phone] | | | | | | Phone: | Fax: | | | | | | [phone] | [phone] | | | | | | Fax: | | | | | | | [phone] | | +--------+--------+ + + + + [...] | Dx); Kyphosis | | | | [place], | [place], [place] | deformity of spine | | | | [place] [address] | [address] | | | | | [phone] | | | +--------+---------+ + + + [...] oxygen at 2 L per minute at [facility] while she slept. Over last [...] A copy of the patient's echocardiogram from [facility] will be reviewed. CC: Yovani Santana documented in this encounter Plan of Treatment Not on filedocumented as of this encounter Results PFT PULMONARY FUNCTION TESTING ORDERS Full PFT ([place] w/BD, lung volumes, diffusion)?: Yes; Rest and [...] Melendez MD 03/27/2014 13:24 | | | [facility] | | + + + + [...] 03/26/14Electronically signed by: Gary Melendez MD 03/27/2014 13:24[facility] | | [facility] | | | |No prior pulmonary function tests available for comparison. | | | |Test performed: 03/26/14 | |Electronically signed by: Gary Melendez MD 03/27/2014 13:24 | |[facility] | + + documented in this encounter Visit Diagnoses + + | Diagnosis | + + | Hypoxemia - Primary | + + | Kyphosis deformity of spine Kyphosis (acquired) (postural) | + + documented in this encounter
--- OUTSIDE RECORDS SUMMARY | ~2019-05-06 | XMS | Encounter Summary ---
Demographics + + + | Address | [address] | | | [place] [address] | + + + | Home Phone [...] Team Providers + +------+ + | Care Resident Care Coordinator Name | Role | Phone | + +------+ + | Rick Osorio DO | PCP | | + +------+ + Encounter Details +--------+ + + + + | Date | Type | Department | Care Team | Description | +--------+ + + + + | 11/15/ | Orders Only | [facility] | Emil Oliva MD | | | 2014 | | NEPRHOLOGY [place] | [address] [facility] [address] | | | | | [address] | [address] [place], [place] | | | | | [address] [place], [place] | [address] | | | | | [address] | | | | | | [phone] | | | +--------+ + + + [...] | | | LAB | | | [facility] | | | | | + + [...]
--- OUTSIDE RECORDS SUMMARY | ~2019-05-06 | XMS | Encounter Summary ---
Demographics + + + | Address | [address] | | | [place] [address] | + + + | Home Phone [...] + +------+ + | Care Director Of Workforce Development Name | Role | Phone | + +------+ + | Rick Osorio DO | PCP | | + +------+ + Encounter Details +--------+ + + + + | Date | Type | Department | Care Team | Description | +--------+ + + + + | 06/04/ | Orders Only | [facility] | Emil Oliva MD | | | 2013 | | NEPHROLOGY [place] | [address] | | | | | [address] | [address] [place], [place] | | | | | [address] [place], [place] | [address] | | | | | [address] | | | | | | [phone] | | | +--------+ + + + [...]
--- OUTSIDE RECORDS SUMMARY | ~2019-05-06 | XMS | Encounter Summary ---
Demographics + + + | Address | [address] | | | [place] [address] | + + + | Home Phone [...] + + + | Author | [facility] | + + + | Organization | [facility] | + + + | Address | Unknown | + + + | Phone | Unavailable | + + + Care Team Providers + +------+ + | Care Call Center Trainer Name | Role | Phone | [...] + + | 01/28/ | Emergency | [facility] Emergency | | | | 2014 | | Department [address] | | | | | [address] | | | | | | [facility] | | | | | | [place], [place] | | | | | | [address] | | | | | | [phone] | | | +--------+ + + + [...]
[~2019-05-06 15:13] MED LIST changes: +CIPROFLOXACIN250 MG PO; -FEOSOL45 MG PO; +HYDROCODON-ACE1 EAC8 PO; +IRON325 M1 PO; +MIRTAZAPINE15 MG PO
--- OUTSIDE RECORDS SUMMARY | 2019-05-06 15:16 | XMS ---
PreManage Notification: COLE ERNST Security Interior Wall Assembler Events No recent Security Events currently on file CRITERIA MET - [facility] Care Home Facility Current PHONE: [phone] Cindy Meyer Mushroom Farmer/Rose Grading Supervisor 01/17/2019-Current PHONE: [phone] K[facility] DE JESUS Internal Medicine 02/06/2018-Current PHONE: Unknown C[facility] Meyer Primary Care 01/17/2019-Current PHONE: [phone] Anu has no Care Guidelines for this patient. Care History Medical/Surgical 02/06/2018 [facility] - Patient is currently established with [facility]. If patient is seen in the ED during business hours. Please contact CHWs at [facility]. Care Recommendation: This patient has had 5 [...] providing care. E.D. VISIT COUNT (12 MO.) 4 [facility] TOTAL 4 NOTE: Visits indicate total known visits. ED/UCC VISIT TRACKING (12 MO.) 05/06/2019 15:13 [facility] TYPE: Emergency COMPLAINT: - HEART PALPITATIONS 11/29/2018 07:36 [facility] [place] TYPE: Emergency COMPLAINT: - WEAKNESS 10/13/2018 08:25 [facility] [place] TYPE: Emergency COMPLAINT: - R ANKLE PAIN/INJURY DIAGNOSES: - Unspecified sprain of right foot, initial encounter - Pain in right ankle and joints of right foot - Allergy status to narcotic agent status - Personal history of nicotine dependence - Unspecified atrial fibrillation - long-term (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 - Chronic kidney disease, unspecified - Other long distance operator (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 - Hypothyroidism, unspecified - Overexertion from prolonged static or awkward postures, init 06/04/2018 09:27 [facility] [place] TYPE: Emergency COMPLAINT: - WEAKNESS/COUGH INPATIENT VISIT TRACKING (12 MO.) 11/29/2018 09:11 [facility] [place] TYPE: Medical Surgical COMPLAINT: - ZULAY,UTI,R FOOT FX DIAGNOSES: - Scoliosis, unspecified - Disp fx of second metatarsal bone, right foot, init - Unsp place in [facility] (private) residence as place - Other [facility] (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 - Unspecified fall, initial encounter - Acute kidney failure, unspecified - Oth bacterial agents as the cause of diseases classd elswhr - Chronic kidney disease, unspecified [facility] place - Hypothyroidism, unspecified - Urinary tract infection, site not specified - Oth bacterial agents as the cause of diseases classd elswhr - Restless legs syndrome - Hypothyroidism, unspecified - Raynaud's syndrome without gangrene - Abnormal coagulation profile - Allergy status to narcotic agent status - Disp fx of second metatarsal bone, right foot, init - Liver transplant status - Disp fx of 3rd metatarsal bone, r ft, 7thD - Allergy status to narcotic agent status - Disp fx of first metatarsal bone, right foot, init - Chronic kidney disease, unspecified - Disp fx of 4th metatarsal bone, r ft, 7thD - Disp fx of 3rd metatarsal bone, r ft, 7thD - Abnormal coagulation profile - Scoliosis, unspecified - Other [place] (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 - Adverse effect of anticoagulants, initial encounter - Urinary tract infection, site not specified - Disp fx of first metatarsal bone, right foot, init - Raynaud's syndrome without gangrene - Unspecified fall, initial encounter - Liver transplant status - Dependence on supplemental oxygen - Adverse effect of anticoagulants, initial encounter - Disp fx of 4th metatarsal bone, r ft, 7thD - Dependence on supplemental oxygen - Other chronic pain - Other chronic pain - Restless legs syndrome 06/04/2018 12:24 [facility] [place] TYPE: Medical [...] supplemental oxygen - Dependence on supplemental oxygen [email or web address]
--- NOTE | 2019-05-08 12:50 | EKG ---
[facility] [address] [place] [address] Signed Atrial fibrillation with rapid ventricular response with premature ventricular or aberrantly conducted complexes Nonspecific ST abnormality Abnormal ECG When compared with ECG of 29-NOV-2018 07:58, Atrial fibrillation has replaced Sinus rhythm Vent. rate has increased BY 83 BPM Confirmed by OLIVERIO YU MD ([id number]) on 05/08/2019 12:49:53 PM Electronically Signed By: OLIVERIO YU MD 05/08/19 1250 PATIENT NAME: COLE ERNST Electrocardiogram DATE OF : 45 PHYSICIAN: OLIVERIO YU MD REPORT #: [id number] REPORT IS CONFIDENTIAL AND NOT TO BE RELEASED WITHOUT AUTHORIZATION
== END 2019-05-06 17:27 | disposition home or self-care (01) ==
LOC: ED 15:13
DX: I48.91 Unspecified atrial fibrillation (principal); Z88.5 Allergy status to narcotic agent; Z79.899 Other long term (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; E03.9 Hypothyroidism, unspecified
CPT/HCPCS: 71045; 80053; 85025; 93005; 93010; 96374; 96376; 99285-25

== ENCOUNTER 2019-05-09 11:16 | Observation (INO) | payer MEDICARE, OTHER ==
[~2019-05-09] VITALS: Ht 157.5 cm; Wt 91.0 kg
--- OUTSIDE RECORDS SUMMARY | ~2019-05-09 | XMS | Encounter Summary ---
Demographics + + + | Address | [address] | | | [place] [address] | + + + | Home Phone | | + + + | Preferred Language | Unknown | + + + | Marital Status | Unknown | + + + | Anabaptist Affiliation | Unknown | + + + | Race | Unknown | + + + | Ethnic Group | Unknown | + + + Author + + + | Author | [facility] | + + + | Organization | [facility] | + + + | Address | Unknown | + + + | Phone | Unavailable | + + + Care Team Providers + +------+ + | Care Grain Scooper Name | Role | Phone | + +------+ + PCP | Unavailable | + +------+ + Reason for Visit + + + | Reason | Comments | + + + | Liver Transplant | | | Referral | | + + + Encounter Details +--------+ + + + + | Date | Type | Department | Care Team | Description | +--------+ + + + + | 03/28/ | Telephone | Clinical | Laura Mercado, | Liver Transplant | | 2019 | | Transplant Services | RN [address] | Referral | | | | [address] | [place] | | | | | [place], | [place], [place] | | | | | [place] [address] | [address] | | | | | [phone] | | | +--------+ + + + [...] Not on filedocumented as of this encounter Visit Diagnoses Not on filedocumented in this encounter"
--- OUTSIDE RECORDS SUMMARY | ~2019-05-09 | XMS | Encounter Summary ---
Demographics + + + | Address | [address] | | | [place] [address] | + + + | Home Phone | | + + + | Preferred Language | Unknown | + + + | Marital Status | Unknown | + + + | Jehovah'S Witness Affiliation | Unknown | + + + | Race | Unknown | + + + | Ethnic Group | Unknown | + + + Author + + + | Author | [facility] | + + + | Organization | [facility] | + + + | Address | Unknown | + + + | Phone | Unavailable | + + + Care Team Providers + +------+ + | Care Reverse Logistics Analyst Name | Role | Phone | + +------+ + PCP | Unavailable | + +------+ + Encounter Details +--------+ + + + + | Date | Type | Department | Care Team | Description | +--------+ + + + + | 04/20/ | Documentati | Clinical | Laura Mercado, | | | 2019 | on | Transplant Services | [address] | | | | | [address] | [address] | | | | | [place], | [place], [place] | | | | | [place] [address] | [address] | | | | | [phone] | | | +--------+ + + + [...]
--- OUTSIDE RECORDS SUMMARY | ~2019-05-09 | XMS | Encounter Summary ---
Demographics + + + | Address | [address] | | | [place] [address] | + + + | Home Phone | | + + + | Preferred Language | Unknown | + + + | Marital Status | Single | + + + | Islam Affiliation | 1041 | + + + | Race | Unknown | + + + | Ethnic Group | Unknown | + + + Author + + + | Author | [facility] | | | and [place] | + + + | Organization | [facility] | | | [...] Team Providers + +------+ + | Care Publications Inspector Name | Role | Phone | + +------+ + | Yovani Santana MD | PCP | | + +------+ + Encounter Details +--------+ + + + + | Date | Type | Department | Care Team | Description | +--------+ + + + + | 03/26/ | Hospital | [facility] | Melendez, Gary, | Hypoxemia; Kyphosis | | 2014 | Encounter | MED CTR PULMONARY | MD [address] | deformity of spine | | | | FUNCTION [address] | [place], [place] | | | | | [place], | [address] | | | | | [place] [address] | | | | | | [phone] | | | +--------+ + + + [...] + + documented as of this encounter Medications at Time of Discharge + [...] +---------+--------+ + documented as of this encounter Plan of Treatment Not on filedocumented as of this encounter Procedures + +--------+ + + + | Procedure Name | Priori | Date/Time | Associated Diagnosis | Comments | | | ty | | | | + +--------+ + + + | PFT PULMONARY | [facility] | 03/27/2014 | Hypoxemia | Results for this | | FUNCTION TESTING | | 1:25 PM | Kyphosis deformity | procedure are in the | | ORDERS | | PST | of spine | results section. | + +--------+ + + + | PFT PULMONARY | [facility] | 03/27/2014 | Hypoxemia | Results for this | | FUNCTION TESTING | | 1:25 PM | Kyphosis deformity | procedure are in the | | ORDERS | | PST | of spine | results section. | + +--------+ + + + | PFT PULMONARY | [facility] | 03/27/2014 | Hypoxemia | Results for this | | FUNCTION TESTING | | 1:25 PM | Kyphosis deformity | procedure are in the | | ORDERS | | PST | of spine | results section. | + +--------+ + + + | PFT PULMONARY | [facility] | 03/27/2014 | Hypoxemia | Results for this | | FUNCTION TESTING | | 1:25 PM | Kyphosis deformity | procedure are in the | | ORDERS | | PST | of spine | results section. | + +--------+ + + + | DIAGNOSTIC REPORT - | | 03/26/2014 | | | | EXTERNAL SCAN | | 12:00 AM | | | | | | PST | | | + +--------+ + + + | DIAGNOSTIC REPORT - | | 03/26/2014 | | | | EXTERNAL SCAN | | 12:00 AM | | | | | | PST | | | + +--------+ + + + documented in this encounter Results PFT PULMONARY FUNCTION TESTING ORDERS Full PFT (Anmol w/BD, lung volumes, diffusion)?: Yes; Rest and walk Oximetry/home O2 eval?: Yes (03/27/2014 1:25 PM PST) + + + | Narrative | Performed At | + + + | Gary Melendez MD 03/27/2014 13:25 PULMONARY FUNCTION | | | TESTING SPIROMETRY: The FVC was 1.13 L or 40 % of predicted. The | | | FEV1 was 0.93 L or 43 % of predicted. FEV1/FVC ratio was 82 %. | | | LUNG VOLUMES: The total lung capacity was 2.10 L or 43 % of | | | predicted. The residual volume was 0.95 L or 46 % of predicted. | | | RV/TLC ratio was 107 % of predicted. DIFFUSION CAPACITY: The | | | diffusion capacity was 7.8mL/mmHg per minute or 34 % of predicted. | | | IMPRESSION: Spirometry is consistent with severe restrictive | | | physiology. Lung volume testing is consistent with severe | | | restrictive physiology. Diffusion capacity is severely reduced and | | | is not corrected for measured hemoglobin. No prior pulmonary | | | function tests available for comparison. Test performed: 03/26/14 | | | Electronically signed by: Gary Melendez MD 03/27/2014 13:24 | | | [facility] | | + + + + + | Procedure Note | + + | Gary Melednez MD - 03/27/2014 1:24 PM PST PULMONARY FUNCTION TESTING | | SPIROMETRY: The FVC was 1.13 L or 40 % of predicted. The FEV1 was 0.93 L or 43 % of | | predicted. FEV1/FVC ratio was 82 %. LUNG VOLUMES: The total lung capacity was 2.10 L or | | 43 % of predicted. The residual volume was 0.95 L or 46 % of predicted. RV/TLC ratio | | was 107 % of predicted. DIFFUSION CAPACITY: The diffusion capacity was 7.8mL/mmHg per | | minute or 34 % of predicted. IMPRESSION: Spirometry is consistent with severe | | restrictive physiology. Lung volume testing is consistent with severe restrictive | | physiology. Diffusion capacity is severely reduced and is not corrected for measured | | hemoglobin.No prior pulmonary function tests available for comparison.Test performed: | | 03/26/14Electronically signed by: Gary Melendez MD 03/27/2014 13:24[facility] | | [facility] | | | |No prior pulmonary function tests available for comparison. | | | |Test performed: 03/26/14 | |Electronically signed by: Gary Melendez MD 03/27/2014 13:24 | |[facility] | + + documented in this encounter Visit Diagnoses + + | Diagnosis | + + | Hypoxemia | + + | Kyphosis deformity of spine Kyphosis (acquired) (postural) | + + documented in this encounter"
--- OUTSIDE RECORDS SUMMARY | ~2019-05-09 | XMS | Encounter Summary ---
Demographics + + + | Address | [address] | | | [place] [address] | + + + | Home Phone | | + + + | Preferred Language | Unknown | + + + | Marital Status | Single | + + + | Mandaeism Affiliation | 1041 | + + + | Race | Unknown | + + + | Ethnic Group | Unknown | + + + Author + + + | Author | [facility] | | | and [place] | + + + | Organization | [facility] | | | [...] Team Providers + +------+ + | Care Dining Room Captain Name | Role | Phone | + +------+ + | Rick Osorio DO | PCP | | + +------+ + Encounter Details +--------+ + + + + | Date | Type | Department | Care Team | Description | +--------+ + + + + | 11/15/ | Orders Only | [facility] | Emil Oliva MD | | | 2014 | | NEPHROLOGY [place] | [address] [place] | | | | | [address] | [address] [place], [place] | | | | | [address] [place], [place] | [address] | | | | | [address] | | | | | | [phone] | | | +--------+ + + + [...]
--- OUTSIDE RECORDS SUMMARY | ~2019-05-09 | XMS | Encounter Summary ---
Demographics + + + | Address | [address] | | | [place] [address] | + + + | Home Phone | | + + + | Preferred Language | Unknown | + + + | Marital Status | Single | + + + | Jehovah'S Witness Affiliation | 1041 | + + + | Race | Unknown | + + + | Ethnic Group | Unknown | + + + Author + + + | Author | [facility] | | | and [place] | + + + | Organization | [facility] | | [...] Team Providers + +------+ + | Care Financial Recruiter Name | Role | Phone | + +------+ + | Yovani Santana MD | PCP | | + +------+ + Encounter Details +--------+ + + + + | Date | Type | Department | Care Team | Description | +--------+ + + + + | 05/10/ | Hospital | [facility] | Gary Melendez, | Hypoxemia; | | 2014 | Encounter | MED CTR XRAY [address] | MD [address] | Restrictive lung | | | | [place] | [place], [place] | disease | | | | [place] [address] | [address] | | | | | [phone] | | | | | | | [...] + | MISCELLANEOUS LAB | | | [phone] | + +---------+ + + | MISCELANIOUS LAB | | | [phone] | + +---------+ + + documented in this encounter Visit Diagnoses + + | Diagnosis | + + | Hypoxemia | + + | Restrictive lung disease Other diseases of lung, not elsewhere classified | + + documented in this encounter"
--- OUTSIDE RECORDS SUMMARY | ~2019-05-09 | XMS | Clinical Summary ---
Demographics + + + | Address | [address] | | | [place] [address] | + + + | Home Phone | | + + + | Preferred Language | Unknown | + + + | Marital Status | Single | + + + | Yazidism Affiliation | 1041 | + + + | Race | Unknown | + + + | Ethnic Group | Unknown | + + + Author + + + | Author | [facility] | | | and [place] | + + + | Organization | [facility] | | [...] Team Providers + +------+ + | Care Ore Roaster Name | Role | Phone | + [...] | [employer] [facility] | [facility] | [id number] | 05/23/19 | | | Medica | [...] Person | Self [birth year] | [address] | | Codie | al/Fam | | 1946 | [id number] | | | [place] | | | [address] (Home) | [place] | | | | | | | [address] | + +--------+ +--------+ + + Advance Directives + + + + + | Type | Date Recorded | Patient | Explanation | | | | Order Builder Loader | | + + + + + | Power of | | | | | Senior Mortgage Underwriter | | | | + + + + + | Advance | 05/10/2014 | | | | Directive | 12:33 PM | | | + + + + +
--- OUTSIDE RECORDS SUMMARY | ~2019-05-09 | XMS | Encounter Summary ---
Demographics + + + | Address | [address] | | | [place] [address] | + + + | Home Phone | | + + + | Preferred Language | Unknown | + + + | Marital Status | Single | + + + | Religion Affiliation | 1041 | + + + [...] Team Providers + +------+ + | Care Stock Buyer Name | Role | Phone | + +------+ + | Yovani Santana MD | PCP | | + +------+ + Encounter Details +--------+ + + + + | Date | Type | Department | Care Team | Description | +--------+ + + + + | 03/26/ | Hospital | [facility] | Melendez, Gary, | Hypoxemia; Kyphosis | | 2014 | Encounter | MED CTR PULMONARY | MD [address] | deformity of spine | | | | FUNCTION [address] | [place], [place] | | | | | [place], | [address] | | | | | [place] [address] | | | | | | [phone] | | | +--------+ + + + [...] Melendez MD 03/27/2014 13:24 | | | [facility] | | + + + + + | Procedure Note | + + | Gary Melendez MD - 03/27/2014 1:24 PM PST PULMONARY [...] 03/26/14Electronically signed by: Gary Melendez MD 03/27/2014 13:24[facility] | | [facility] | | | |No prior pulmonary function tests available for comparison. 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
--- OUTSIDE RECORDS SUMMARY | ~2019-05-09 | XMS | Encounter Summary ---
Demographics + + + | Address | [address] | | | [place] [address] | + + + | Home Phone | | + + + | Preferred Language | Unknown | + + + | Marital Status | Single | + + + | Hindu Affiliation | 1041 | + + + | Race | Unknown | + + + | Ethnic Group | Unknown | + + + Author + + + | Author | [facility] | | | and [place] | + + + | Organization | [facility] | | | [...] Team Providers + +------+ + | Care Housemaid Name | Role | Phone | + +------+ + | Yovani Santana MD | PCP | | + +------+ + Encounter Details +--------+ + + + + | Date | Type | Department | Care Team | Description | +--------+ + + + + | 01/14/ | Hospital | [facility] | Jennifer Hartman MD | Near syncope; | | 2015 - | Encounter | [facility] | [address] | Elevated troponin; | | | | CARE FLOOR [address] | [place] [address] | Non-STEMI (non-ST | | 01/19/ | | [address] | [phone] | elevated myocardial | | 2015 | | [place], [place] | | infarction) ([facility]); | | | | [phone] | | CKD (chronic kidney | | | | [phone] | | disease), | | | | | | unspecified stage; | | | | | | Leukocytosis; ZULAY | | | | | | (acute kidney | | | | | | injury) ([facility]); Liver | | | | | | replaced by | | | | | | transplant ([facility]) | +--------+ + + + + [...] Date of Service: 01/19/15 0753 Status: Signed Tire Assembler: Emma Hardy MD (Physician) Related Notes: Original Note by Emma Hardy MD (Physician) filed at 01/19/15 0800 [facility] Service: Hospitalist Physician Discharge Summary Patient ID: [...] history of chronic pain, on chronic methadone, 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 The patient was taken off methadone about 3 weeks prior to admission. Pre vious creatinine was 1.38 and the patient was presented at [facility] in [place] , was found to have elevated troponin of 0.55 and noted to have creatinine of 2.4 and leukoc ytosis and was transferred for fev-GD-qwcktzpfv MD. HOSPITAL COURSE The patient was admitted with ivv-ZG-sbyclidtt MD. Cardiology consult was obtained. She was started [...] lipid-lowerin g therapy. The patient also has rdkol-yv-jmdvrkf kidney disease, stage III. Acute renal fail [...] to have severe protein calorie malnutrition and project crew worker was consulted. Her blood pressures remain stable. [...] 1.5* 1.8 1.4* Invalid input(s): ABG Disposition: retirement facility Follow up: Ki De Jesus DO [address] [facility] [address] [place] [address] Schedule an appointment as soon as possible for a visit in 4 days Juan Ramey MD [address] [facility] [address] [facility] [address] Schedule an appointment as soon as possible for a visit in 1 week Follow up biopsy results Juju Riggins MD [address] [place] [address] Schedule an appointment as soon as [...] are the prescriptions that you need to picking tech. You may get the following medications from [...] summary. This entry has been created using Guvera Speech Recognition software and collegefeed. The entry has been reviewed and there [...] Date of Service: 01/19/15 1300 Status: Signed Tire Assembler: Shaista Lin RN (Registered Nurse) Pt discharged via wheel chair on 2 L of oxygen. To [facility] in [place]. Pt alert and o rientedX4. onver alessandro Transaction, Provider Unknown - 01/19/2015 8:20 AM PDT Case Management by PHUONG Roman at 01/19/15819 Author: PHUONG Roman Service: (none) Author Type: Head Of Loss Prevention Filed: 01/19/15819 Date of Service: 01/19/15819 Status: Signed Tire Assembler: PHUONG Roman (Head Of Loss Prevention) Disposition: [facility] Transportation: facility van All orders, signed AVS, [...] 0625 Date of Service: 01/19/15412 Status: Signed Tire Assembler: Yady Singh RN (Registered Nurse) Patient resting quietly all night. Medicated once for all over general pain. No further com plaints. VSS. onver alessandro Transaction, Provider Unknown - 01/18/2015 3:21 PM PDT Case Management by PHUONG Roman at 01/18/15 1521 Author: PHUONG Roman Service: (none) Author Type: Head Of Loss Prevention Filed: 01/18/15 1521 Date of Service: 01/18/15 1521 Status: Signed Tire Assembler: PHUONG Roman (Head Of Loss Prevention) spoke w/ Will at [facility] who reports they can accept and transport pt tomorrow AM. PHUONG Roman osangela Kirk MD - 01/18/2015 3:10 PM PDT Progress Notes by Rosangela Steinberg MD at 01/18/15 1510 Author: Rosangela Steinberg MD Service: Infectious Disease Author Type: Physician Filed: 01/18/15 9006 Date of Service: 01/18/15 1510 Status: Signed Tire Assembler: Rosangela Steinberg MD (Physician) [facility] Service: Infectious Disease Progress Note Hospital Day: [...] vomiting and diarrhea. Had initially presented to [facility] in [place] with similar complaints. Was foun d to have an elevated troponin. She was mainly admitted as a non-STEMI. Found to have a leuk ocytosis. Since patient is immunocompromised, she was started empirically on IV ceftriaxone. Chest x-ray showed no infiltrate. Patient denies any recent fevers or chills. She went to [facility] mainly becau se of syncope. Prior [...] extraluminal fluid collection abdomen pelvis without contrast [[id number]] Impression 1. Hypoinflated chest, but no evident infiltrate chest 1 view [[id number]] Impression 1. Indication for study and thus [...] 1445 Date of Service: 01/18/15748 Status: Signed Tire Assembler: Emma Hardy MD (Physician) [facility] Service: Hospitalist Progress Note Hospital Day: LOS: [...] (HCC) ASSESSMENT & PLAN 1. Non-ST elevation MD. Possible demand ischemia. Will schedule for nuclear [...] schrader 8. Deconditioning Continue physical therapy and alf facility placement versus home PT 9. Chronic [...] AM This entry has been created using Guvera Speech Recognition software and collegefeed. The entry has been reviewed and there may still exist sound alike word errors. onversion Trans action, Provider Unknown - 01/18/2015 5:16 AM PDT Nurse Progress Note by Yady Singh RN at 01/18/15515 Author: Yady Singh RN Service: (none) Author Type: Registered Nurse Filed: 01/18/152104 Date of Service: 01/18/15515 Status: Signed Tire Assembler: Yady Singh RN (Registered Nurse) Pt taken [...] Date of Service: 01/17/15 162 Status: Signed Tire Assembler: Jose Maria Espinal MD (Physician) Related Notes: Original Note by Jose Maria Espinal MD (Physician) filed at 01/17/152012 [facility] Service: Hospitalist Progress Note Pt: Cole Ernst AGE/SEX: 69 y.o. female : 1945 ROOM: [address] [place] [address] History of Present Illness: " The patient [...] who called EMS. Patient was taken to [facility] in [place]. Susie ent was noted to have a [...] Patient had borderline blood pressure. While at [facility] with systolic in the low 90s. [...] CT done several days ago while in [place]. She also stat es that her vomiting and diarrhea have significantly improved. She denies any fevers, hemat emesis, melena, bright red blood per rectum, hematuria, dysuria, she denies any leg pain or swelling. No palpitations. She states she does have a history of "kidney disease" and was told that it was secondary to cyclosporine. However, she is not seen kidney specialist [facility] her liver transplant.".....per admitting MD/Dr. Hartman. [...] collected as n oted. I urged the direct care staffer to introduce a hat so that sample [...] contrast. Prior study for comparison: None FINDINGS: 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 deg enerative changes of [...] LA/Ao: 1.57 D-E Excursion: 2.11 cm E-F Pleasants: 0.09 m/s EPSS: 0.48 cm HR: 77.41 [...] TV A Billy: 0.66 m/s TV Dec Pleasants: 4.36 m/s2 TV Dec Time: 184.41 ms TV E Billy: 0.80 m/s TV E/A Rat io: 1.21 Project Production Engineer: NEDRA Authenticated by: Gil Coronel MD Report [...] nutritional supplements as recommend ed by nutrition service/project crew worker. Jose Maria Espinal MD 01/17/2015 4:29 PM onversion Transa ction, Provider Unknown - 01/17/2015 3:15 PM PDT Case Management by PHUONG Sandhu at 01/17/15 1515 Author: PHUONG Sandhu Service: (none) Author Type: Wire Drawing Machine Tender Filed: 01/17/15 1518 Date of Service: 01/17/155 Status: Signed Tire Assembler: PHUONG Sandhu (Wire Drawing Machine Tender) 01/17/15 1500 Discharge Planning Evaluation Admitting Diagnosis Near syncope, elevated tropinin, non-stemi, CKD Anticipated Disposition Facility Type retirement facility Medicare Important Message (MEREDITH) Given Retirement [facility] Other (comment) ([facility]) REGULATED PROGRAM MANAGER met with Pt for discharge planning, on board with going to [facility] when medically ready. REGULATED PROGRAM MANAGER p/c to [facility] - will accept Pt when medically ready. [facility] (73 miles) [address] [place] [address], [place] Core Placer: Will DCP: [facility] Transportation: [facility] Facility Van - Core Placer: Will [phone] Medicare important message signed and copy in chart LUIS FOUNTAIN, Head Of Loss Prevention [phone] cell Rosangela Zavala MD - 01/17/2015 1:11 PM PDT Progress Notes by Rosangela Steinberg MD at 01/17/15 1311 Author: Rosangela Steinberg MD Service: Infectious Disease Author Type: Physician Filed: 01/17/15 7402 Date of Service: 01/17/15 1311 Status: Signed Tire Assembler: Rosangela Steinberg MD (Physician) [facility] Service: Infectious Disease Progress Note Hospital Day: [...] vomiting and diarrhea. Had initially presented to [facility] in [place] with similar complaints. Was foun d to have an elevated troponin. She was mainly admitted as a non-STEMI. Found to have a leuk ocytosis. Since patient is immunocompromised, she was started empirically on IV ceftriaxone. Chest x-ray showed no infiltrate. Patient denies any recent fevers or chills. She went to [facility] mainly becau se of syncope. Prior [...] extraluminal fluid collection abdomen pelvis without contrast [[id number]] Impression 1. Hypoinflated chest, but no evident infiltrate chest 1 view [[id number]] Impression 1. Indication for study and thus [...] 01/16/152137 Date of Service: 01/16/152127 Status: Signed Tire Assembler: Juju Riggins MD (Physician) [facility] Service: Cardiology Progress Note Hospital Day: LOS: [...] Author: PHUONG Sandhu Service: (none) Author Type: Wire Drawing Machine Tender Filed: 01/16/156 Date of Service: 01/16/151642 Status: Signed Tire Assembler: PHUONG Sandhu (Wire Drawing Machine Tender) 01/16/15 1600 Discharge Planning Evaluation Admitting Diagnosis Near syncope, elevated tropinin, non-stemi, CKD Anticipated Disposition Facility Type retirement facility Retirement Facility Other (comment) ([facility]) PHUONG received p/c from Will, admissions at [facility], states they are willi ng to accept Pt to their Retirement Facility, states their house physician will not pre scribe Methadone. Will states she will start authorization process with [employer] who is Managing the Medicare benefits. Will states the first 20 days are covered at 100% then day 21 will be $100.00 a day. DCP: [facility] or Home LUIS FOUNTAIN,Head Of Loss Prevention [phone] cell Jose Maria Grimes MD - 01/16/2015 11:29 AM PDTFormatting of this note might be different from th e original. Progress Notes by Jose Maria Espinal MD at 01/16/15 1129 Author: Jose Maria Espinal MD Service: Hospitalist Author Type: Physician Filed: 01/17/15 1149 Date of Service: 01/16/15 1129 Status: Signed Tire Assembler: Jose Maria Espinal MD (Physician) Related Notes: Original Note by Jose Maria Espinal MD (Physician) filed at 01/16/15 1137 [facility] Service: Hospitalist Progress Note Pt: Cole Ernst AGE/SEX: 69 y.o. female : 1945 ROOM: [address] [place] [address] History of Present Illness: " The patient [...] who called EMS. Patient was taken to [facility] in [place]. Susie ent was noted to have a [...] Patient had borderline blood pressure. While at [facility] with systolic in the low 90s. [...] CT done several days ago while in [place]. She also stat es that her vomiting and diarrhea have significantly improved. She denies any fevers, hemat emesis, melena, bright red blood per rectum, hematuria, dysuria, she denies any leg pain or swelling. No palpitations. She states she does have a history of "kidney disease" and was told that it was secondary to cyclosporine. However, she is not seen kidney specialist [facility] e her liver transplant.".....per admitting MD/Dr. Hartman. [...] collected as n oted. I urged the direct care staffer to introduce a hat so that sample [...] contrast. Prior study for comparison: None FINDINGS: 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 deg enerative changes of [...] LA/Ao: 1.57 D-E Excursion: 2.11 cm E-F Pleasants: 0.09 m/s EPSS: 0.48 cm HR: 77.41 [...] TV A Billy: 0.66 m/s TV Dec Pleasants: 4.36 m/s2 TV Dec Time: 184.41 ms TV E Billy: 0.80 m/s TV E/A Rat io: 1.21 Project Production Engineer: NEDRA Authenticated by: Gil Coronel MD Report [...] pressure has been showing increasing trend since pr toprolol has been held on admission due [...] Date of Service: 01/16/15 1102 Status: Signed Tire Assembler: Natalio Benito PT (Physical Therapist) 01/16/15 1102 PT Last Visit PT Received On 01/16/15 Reason for Treatment Deconditioning;Other (comment) (NSTEMI; Syncope) Requires PT Follow Up Awaiting tx order Follow up PT Only? No PT Eval/Reassessment Date 01/16/15 Assistance Required 1 person Parking Enforcer Needed No Home Environment Type of Home Apartment ground level Home Exterior Layout Entry steps none Home Interior Layout Lives on main level with bedroom/bathroom Bathroom Shower/Tub Tub/shower unit Bathroom Toilet Standard Bathroom Equipment Shower stool;Grab bars in shower/bath;Grab bars outside of shower/bath Bathroom Accessibility Other (Comment) (Small bathroom) Home Equipment Walker 4 wheeled;Cane single point Prior Function Level of [place] Modified independent with functional mobility;Modified independent wi [...] (sitting in recliner w/ call light and CLOTH CLASSER present) Restraints Initially in Place No Precautions [...] Eval/Reassessment Date 01/16/15 Assistance Required 1 person Parking Enforcer Needed No Precautions Other Precautions Fall Risk [...] support. Patient in the recli ner w/ CLOTH CLASSER present at end of session, no new [...] (sitting in recliner w/ call light and CLOTH CLASSER present) Restraints Initially in Place No Plan [...] Date of Service: 01/16/15 1045 Status: Signed Tire Assembler: Nupur Tadeo MD (Physician) [facility] Service: Infectious Disease Progress Note Hospital Day: [...] vomiting and diarrhea. Had initially presented to [facility] in [place] with similar complaints. Was found to have an elevated troponin . She was mainly admitted as a non-STEMI. Found to have a leukocytosis. Since patient is imm unocompromised, she was started empirically on IV ceftriaxone. Chest x-ray showed no infiltrate. Patient denies any recent fevers or chills. She went to [facility] mainly becau se of syncope. Prior [...] Author: PHUONG Sandhu Service: (none) Author Type: Wire Drawing Machine Tender Filed: 01/16/15 1042 Date of Service: 01/16/15 1030 Status: Signed Tire Assembler: PHUONG Sandhu (Wire Drawing Machine Tender) 01/16/15 1000 Discharge Planning Evaluation Admitting Diagnosis Near syncope, elevated tropinin, non-stemi, CKD Anticipated Disposition Facility Type retirement facility REGULATED PROGRAM MANAGER met with Pt and discussed discharge planning, states she has concerns returning home at this time, as Pt resides alone. REGULATED PROGRAM MANAGER discussed rehab options, SNF vs Home Health vs Outpatient PT. Pt states her sister (Annie Tipton [phone] cell) assists with IADLs as Pt does not polo ojeda. Pt states she resides alone and has been doing ADLs on her own. Pt states she uses a 4WW with seat at home, then uses a cane when out of the home, stated, "I am a little vain" abou t using the 4WW in public. Pt is interested in [facility] [place], due to close proximity to her home. REGULATED PROGRAM MANAGER faxe d SNF referral. Pt is [...] need SNF Anticipated DCP: Pending placement at [facility] [place] LUIS FOUNTAIN, Head Of Loss Prevention [phone] cell Luisito Mejía - 01/16/2015 9:12 AM PDTFormatting of this note might be different from the or iginal. Progress Notes by Luisito Thomas MD at 01/16/15911 Author: Luisito Thomas MD Service: Nephrology Author Type: Physician Filed: 01/20/15 1907 Date of Service: 01/16/15911 Status: Signed Tire Assembler: Luisito Thomas MD (Physician) [facility] Service: NEPHROLOGY PROGRESS Note Cole Ernst 69 y.o. [id number] female [facility] Hospital Day: LOS: 2 days The patient is a 69 y.o. 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 High CIWA this shift =4. Patient c/o generalized pain, treated with PRN [place] per orders. Patient observed to be sle eping, following PRN medication and repositioning. Patient continues to be NSR-ST on tele. Vitals stable. Will continue to monitor patient. ose Maria Black MD - 01/15/2015 3:19 PM PDTFormatting of this note might be different from armando tellez original. Progress Notes by Jose Maria Espinal MD at 01/15/15 4783 Author: Jose Maria Espinal MD Service: Hospitalist Author Type: Physician Filed: 01/16/15 0925 Date of Service: 01/15/151518 Status: Signed Tire Assembler: Jose Maria Espinal MD (Physician) Related Notes: Original Note by Jose Maria Espinal MD (Physician) filed at 01/15/151939 [facility] Service: Hospitalist Progress Note Pt: Cole Ernst [...] who called EMS. Patient was taken to [facility] in [place]. Susie ent was noted to have a [...] Patient had borderline blood pressure. While at [facility] with systolic in the low 90s. [...] CT done several days ago while in [place]. She also stat es that her vomiting and diarrhea have significantly improved. She denies any fevers, hemat emesis, melena, bright red blood per rectum, hematuria, dysuria, she denies any leg pain or swelling. No palpitations. She states she does have a history of "kidney disease" and was told that it was secondary to cyclosporine. However, she is not seen kidney specialist [facility] her liver transplant.".....per admitting MD/Dr. Hartman. [...] contrast. Prior study for comparison: None FINDINGS: 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 deg enerative changes of [...] LA/Ao: 1.57 D-E Excursion: 2.11 cm E-F Pleasants: 0.09 m/s EPSS: 0.48 cm HR: 77.41 [...] TV A Billy: 0.66 m/s TV Dec Pleasants: 4.36 m/s2 TV Dec Time: 184.41 ms TV E Billy: 0.80 m/s TV E/A Rat io: 1.21 Project Production Engineer: NEDRA Authenticated by: Gil Coronel MD Report [...] Elevated troponins, question underlying non ST elevation MD. Continue current medical th erapy. I appreciate [...] 1438 Date of Service: 01/15/151429 Status: Signed Tire Assembler: Ronda Michaels RD (Registered Dietitian) 01/15/15 0929 Subjective Timepoint Admit Pt c/o In to [...] Estimated Energy Needs Total Energy Estimated Needs 3248-2101 kcal Method for Estimating Needs 25-30 kcal/kg [...] Date of Service: 01/15/15 1043 Status: Signed Tire Assembler: Luisito Thomas MD (Physician) [facility] Service: NEPHROLOGY PROGRESS Note Cole Ernst 69 y.o. [id number] 4445/[id number] female [facility] Hospital Day: LOS: 1 day The patient is a 69 y.o. 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 See ED Record for Physician Inter pretation. 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 [...] 01/14/152226 Date of Service: 01/14/152226 Status: Signed Tire Assembler: Jazz Rahman RPH (Pharmacist) Clinical Pharmacy Note - Renal Dose Adjustment Cole Ernst 69 y.o. female Ht Readings from Last 1 Encounters: 01/14/15 1.6 m (5' 3") Wt Readings from Last 1 Encounters: 01/14/15 89.6 kg (197 lb 8.5 oz) CREATININE Date Value Ref Range Status 01/14/2015 2.4* 0.50 - 1.00 mg/dL Final Comment: Testing performed at [facility];[address] [place] [address];[place] [address] CREATININE: 2.4 mg/dL ABNORMAL (01/14/15 1548) Estimated [...] Case Management by PHUONG Crump LICSW at 01/14/159 Author: PHUONG Crump LICSW Service: (none) Author Type: Head Of Loss Prevention Filed: 01/14/151734 Date of Service: 01/14/151733 Status: Signed Tire Assembler: PHUONG Crump LICSW (Head Of Loss Prevention) 01/14/151727 Discharge Planning Evaluation Admitting Diagnosis Near syncope, elevated tropinin, non-stemi, CKD Readmission No Living Arrangements Alone Support Systems Family members;Friends/neighbors Type of Residence Private residence House type Apartment Bathrooms on 1st Floor 1-Full Independent with ADL's Yes Independent with Mobility No-comment Home Care Services No Mental Status Oriented Power of Guard Sergeant No;Other (comment) Resources Transportation issues No Prescription Plan Yes Name of Pharmacy [facility] [place], [place] Previous home health equipment Yes Anticipated Disposition Facility Type Home Met with patient and discussed discharge planning, Pt is a 69 y.o., female who reports skyleri mack alone. Patient reports her sister, Annie Tipton, will transport her home a t discharge. Patient's PCP is: KI DE JESUS (General) Patient's insurance:b [employer] & Medicare Coverage concerns: Medication coverage/concerns: Doreen Bedside Delivery: [facility] resources utilized / needed: TBD Assistance in [...] preparation was | | | performed by [employer], [facility], [facility] | | | [place] [address] ([employer] Machine Operator: Martin | | Tariq Galvan M.D.; NINA#: [id number]). Diagnostician: Martin Galvan | | | Pathologist [...] EXTERNAL | | | | performed at [facility], [address] | | LAB | | | | [address], | | | | | | [place] [address] | | | | + + + [...] EXTERNAL | | | | performed at [facility], [address] | | LAB | | | | [address], | | | | | | [place] [address] | | | | + + + [...] | | | | | [place] [address] | | | | + + + + + + | K | 3.4 (L)Comment: Testing | 3.5 - 4.9 | EXTERNAL | | | | performed at [facility], [address] | mmol/L | LAB | | | | [address], | | | | | | [place] [address] | | | | + + + + + + | Cl | 101Comment: Testing | 99 - 109 mmol/L | EXTERNAL | | | | performed at [facility], [address] | | LAB | | | | [address], | | | | | | [place] [address] | | | | + + + + + + | CO2 | 28Comment: Testing | 23 - 32 mmol/L | EXTERNAL | | | | performed at [facility], [address] | | LAB | | | | [address], | | | | | | [place] [address] | | | | + + + + + + | Anion Gap | 10Comment: Testing | 5 - 20 mmol/L | EXTERNAL | | | | performed at [facility], [address] | | LAB | | | | [address], | | | | | | [place] [address] | | | | + + + + + + | Glucose, | 107 (H)Comment: Testing | 65 - 99 mg/dL | EXTERNAL | | | Fasting | performed at [facility], [address] | | LAB | | | | [address], | | | | | | [place] [address] | | | | + + + + + + | BUN | 8Comment: Testing | 8 - 25 mg/dL | EXTERNAL | | | | performed at [facility], [address] | | LAB | | | | [address], | | | | | | [place] [address] | | | | + + + + + + | Creatinine | 0.96Comment: Testing | 0.50 - 1.00 | EXTERNAL | | | | performed at [facility], [address] | mg/dL | LAB | | | | [address], | | | | | | [place] [address] | | | | + + + + + + | BUN/Creatin | 8Comment: Testing | | EXTERNAL | | | ine Ratio | performed at [facility], [address] | | LAB | | | | [address], | | | | | | [place] [address] | | | | + + + + + + | Calcium | 8.6Comment: Testing | 8.5 - 10.5 | EXTERNAL | | | | performed at [facility], [address] | mg/dL | LAB | | | | [address], | | | | | | [place] [address] | | | | + + + [...] | | | | | | at [facility], [address] | | | | | | [address], | | | | | | [place] [address] | | | | + + + [...] + + + | COLE ERNST 1945 ID MYOCARDIAL PERFUSION SPECT - STRESS | | [...] - 01/05/2019 4:32 AM PDT COLE Corcoran [id number] MYOCARDIAL | | PERFUSION SPECT - STRESS [...] 61%. Electronically | | signed by Chang aGr MD on 01/18/2015 2:52 PM | |End-diastolic [...] EXTERNAL | | | | performed at [facility], [address] | K/uL | LAB | | | | [address], | | | | | | [place] [address] | | | | + + + + + + | RED CELL | 3.41 (L)Comment: Testing | 3.70 - 5.10 | EXTERNAL | | | COUNT | performed at [facility], [address] | M/uL | LAB | | | | [address], | | | | | | [place] [address] | | | | + + + + + + | Hgb | 11.9Comment: Testing | 11.3 - 15.5 | EXTERNAL | | | | performed at [facility], [address] | g/dL | LAB | | | | [address], | | | | | | [place] [address] | | | | + + + + + + | Hematocrit, | 35.7Comment: Testing | 34.0 - 46.0 % | EXTERNAL | | | POC | performed at [facility], [address] | | LAB | | | | [address], | | | | | | [place] [address] | | | | + + + + + + | MCV | 104.6 (H)Comment: | 80.0 - 100.0 fl | EXTERNAL | | | | Testing performed at | | LAB | | | | [facility], [address] [facility] | | | | | | [place] | | | | | | [address] | | | | + + + + + + | MCH | 34.9 (H)Comment: Testing | 27.0 - 34.0 pg | EXTERNAL | | | | performed at [facility], [address] | | LAB | | | | [address], | | | | | | [place] [address] | | | | + + + + + + | MCHC | 33.3Comment: Testing | 32.0 - 35.5 | EXTERNAL | | | | performed at [facility], [address] | g/dL | LAB | | | | [address], | | | | | | [place] [address] | | | | + + + + + + | RDW-CV | 50.8Comment: Testing | 37 - 53 fl | EXTERNAL | | | | performed at [facility], [address] | | LAB | | | | [address], | | | | | | [place] [address] | | | | + + + [...] | | | | | [place] [address] | | | | + + + + + + | MPV | 12.6Comment: Testing | fl | EXTERNAL | | | | performed at [facility], [address] | | LAB | | | | [address], | | | | | | [place] [address] | | | | + + + + + + | Differentia | AUTOMATEDComment: | | EXTERNAL | | | l Type | Testing performed at | | LAB | | | | [facility], [address] | | | | | | [place] | | | | | | [address] | | | | + + + + + + | % Segmented | 40.31Comment: Testing | % | EXTERNAL | | | | performed at [facility], [address] | | LAB | | | Neutrophils | [address], | | | | | | [place] [address] | | | | + + + + + + | % | 39.78Comment: Testing | % | EXTERNAL | | | Lymphocytes | performed at [facility], [address] | | LAB | | | | [address], | | | | | | [place] [address] | | | | + + + + + + | % Monocytes | 12.51Comment: Testing | % | EXTERNAL | | | | performed at [facility], [address] | | LAB | | | | [address], | | | | | | [place] [address] | | | | + + + + + + | % | 6.45Comment: Testing | % | EXTERNAL | | | Eosinophils | performed at [facility], [address] | | LAB | | | | [address], | | | | | | [place] [address] | | | | + + + + + + | % Basophils | 0.95Comment: Testing | % | EXTERNAL | | | | performed at [facility], [address] | | LAB | | | | [address], | | | | | | [place] [address] | | | | + + + + + + | Absolute | 3.26Comment: Testing | 1.90 - 7.40 | EXTERNAL | | | Segmented | performed at [facility], [address] | K/uL | LAB | | | Neutrophils | [address], | | | | | | [place] [address] | | | | + + + + + + | Absolute | 3.21Comment: Testing | 1.00 - 3.90 | EXTERNAL | | | Lymphocytes | performed at [facility], [address] | K/uL | LAB | | | | [address], | | | | | | [place] [address] | | | | + + + + + + | Absolute | 1.01 (H)Comment: Testing | 0.00 - 0.80 | EXTERNAL | | | Monocytes | performed at [facility], [address] | [address]/uL | LAB | | | | [address], | | | | | | [place] [address] | | | | + + + + + + | Absolute | 0.52 (H)Comment: Testing | 0.00 - 0.50 | EXTERNAL | | | Eosinophils | performed at [facility], [address] | K/uL | LAB | | | | [address], | | | | | | [place] [address] | | | | + + + + + + | Absolute | 0.08Comment: Testing | 0.00 - 0.10 | EXTERNAL | | | Basophils | performed at [facility], [address] | K/uL | LAB | | | | [address], | | | | | | [place] [address] | | | | + + + + + + | RBC | RBC AND PLT MORPHOLOGY | | EXTERNAL | | | Morphology | APPEAR NORMALComment: | | LAB | | | | Testing performed at | | | | | | [facility], [address] [facility] | | | | | | [place] | | | | | | [address] | | | | + + + [...] EXTERNAL | | | | performed at [facility], [address] | | LAB | | | | [address], | | | | | | [place] [address] | | | | + + + [...] | | | | | [place] [address] | | | | + + + [...] | | | | | [place] [address] | | | | + + + + + + | Cl | 101Comment: Testing | 99 - 109 mmol/L | EXTERNAL | | | | performed at [facility], [address] | | LAB | | | | [address], | | | | | | [place] [address] | | | | + + + + + + | CO2 | 27Comment: Testing | 23 - 32 mmol/L | EXTERNAL | | | | performed at [facility], [address] | | LAB | | | [address], | | | | | | [place] [address] | | | | + + + + + + | Anion Gap | 12Comment: Testing | 5 - 20 mmol/L | EXTERNAL | | | | performed at [facility], [address] | | LAB | | | | [address], | | | | | | [place] [address] | | | | + + + + + + | Glucose, | 118 (H)Comment: Testing | 65 - 99 mg/dL | EXTERNAL | | | Fasting | performed at [facility], [address] | | LAB | | | | [address], | | | | | | [place] [address] | | | | + + + + + + | BUN | 7 (L)Comment: Testing | 8 - 25 mg/dL | EXTERNAL | | | | performed at [facility], [address] | | LAB | | | | [address], | | | | | | [place] [address] | | | | + + + + + + | Creatinine | 0.79Comment: Testing | 0.50 - 1.00 | EXTERNAL | | | | performed at [facility], [address] | mg/dL | LAB | | | | [address], | | | | | | [place] [address] | | | | + + + + + + | BUN/Creatin | 9Comment: Testing | | EXTERNAL | | | ine Ratio | performed at [facility], [address] | | LAB | | | | [address], | | | | | | [place] [address] | | | | + + + + + + | Calcium | 7.5 (L)Comment: Testing | 8.5 - 10.5 | EXTERNAL | | | | performed at [facility], [address] | mg/dL | LAB | | | | [address], | | | | | | [place] [address] | | | | + + + + + + | Protein, | 7.2Comment: Testing | 6.3 - 8.2 g/dL | EXTERNAL | | | Total | performed at [facility], [address] | | LAB | | | | [address], | | | | | | [place] [address] | | | | + + + + + + | Albumin | 3.1 (L)Comment: Testing | 3.3 - 4.8 g/dL | EXTERNAL | | | | performed at [facility], [address] | | LAB | | | | [address], | | | | | | [place] [address] | | | | + + + + + + | Globulin | 4.1Comment: Testing | 1.3 - 4.9 g/dL | EXTERNAL | | | | performed at [facility], [address] | | LAB | | | | [address], | | | | | | [place] [address] | | | | + + + + + + | A/G Ratio | 0.8 (L)Comment: Testing | 1.0 - 2.4 | EXTERNAL | | | | performed at [facility], [address] | | LAB | | | | [address], | | | | | | [place] [address] | | | | + + + + + + | Bilirubin | 0.5Comment: Testing | 0.1 - 1.5 mg/dL | EXTERNAL | | | Total | performed at [facility], [address] | | LAB | | | | [address], | | | | | | [place] [address] | | | | + + + + + + | ALP, | 76Comment: Testing | 35 - 115 U/L | EXTERNAL | | | External | performed at [facility], [address] | | LAB | | | | [address], | | | | | | [place] [address] | | | | + + + + + + | AST | 43Comment: Testing | 10 - 45 U/L | EXTERNAL | | | | performed at [facility], [address] | | LAB | | | | [address], | | | | | | [place] [address] | | | | + + + + + + | ALT | 25Comment: Testing | 10 - 65 U/L | EXTERNAL | | | | performed at [facility], [address] | | LAB | | | | [address], | | | | | | [place] [address] | | | | + + + [...] | | | | | [place] [address] | | | | + + + [...] EXTERNAL | | | | performed at [facility];[address] | mmol/L | LAB | | | | [address];[place] | | | | | | [address] | | | | + + + [...] EXTERNAL | | | | performed at [facility] | | LAB | | | | [address] [facility];[place], [place] | | | | | | [address] | | | | + + + [...] EXTERNAL | | | | performed at [facility];[address] | | LAB | | | | [address];[place] | | | | | | [address] | | | | + + + [...] EXTERNAL | | | | performed at [facility];[address] | mmol/L | LAB | | | | [address];[place], [place] | | | | | | [address] | | | | + + + [...] EXTERNAL | | | | performed at [facility];[address] | | LAB | | | | [address];[place] | | | | | | [address] | | | | + + + [...] EXTERNAL | | | | performed at [facility];8 | | LAB | | | | [address] [facility];[place], [place] | | | | | | [address] | | | | + + + [...] | | | | | [place] [address] | | | | + + + + + + | RED CELL | 3.40 (L)Comment: Testing | 3.70 - 5.10 | EXTERNAL | | | COUNT | performed at [facility], [address] | [address]/uL | LAB | | | | [address], | | | | | | [place] [address] | | | | + + + + + + | Hgb | 12.0Comment: Testing | 11.3 - 15.5 | EXTERNAL | | | | performed at [facility], [address] | g/dL | LAB | | | | [address], | | | | | | [place] [address] | | | | + + + + + + | Hematocrit, | 35.8Comment: Testing | 34.0 - 46.0 % | EXTERNAL | | | POC | performed at [facility], [address] | | LAB | | | | [address], | | | | | | [place] [address] | | | | + + + + + + | MCV | 105.3 (H)Comment: | 80.0 - 100.0 fl | EXTERNAL | | | | Testing performed at | | LAB | | | | [facility], [address] [facility] [address] [facility] | | | | | | [place] | | | | | | [address] | | | | + + + + + + | MCH | 35.3 (H)Comment: Testing | 27.0 - 34.0 pg | EXTERNAL | | | | performed at [facility], [address] | | LAB | | | | [address], | | | | | | [place] [address] | | | | + + + + + + | MCHC | 33.6Comment: Testing | 32.0 - 35.5 | EXTERNAL | | | | performed at [facility], [address] | g/dL | LAB | | | | [address], | | | | | | [place] [address] | | | | + + + + + + | RDW-CV | 50.8Comment: Testing | 37 - 53 fl | EXTERNAL | | | | performed at [facility], [address] | | LAB | | | | [address], | | | | | | [place] [address] | | | | + + + + + + | Platelet | 149 (L)Comment: Testing | 150 - 400 K/uL | EXTERNAL | | | Count | performed at [facility], [address] | | LAB | | | Plasma | [address], | | | | | | [place] [address] | | | | + + + + + + | MPV | 13.0Comment: Testing | fl | EXTERNAL | | | | performed at [facility], [address] | | LAB | | | | [address], | | | | | | [place] [address] | | | | + + + + + + | Differentia | AUTOMATEDComment: | | EXTERNAL | | | l Type | Testing performed at | | LAB | | | | [facility], [address] | | | | | | [place] | | | | | | [address] | | | | + + + + + + | % Segmented | 52.08Comment: Testing | % | EXTERNAL | | | | performed at [facility], [address] | | LAB | | | Neutrophils | [address], | | | | | | [place] [address] | | | | + + + + + + | % | 32.37Comment: Testing | % | EXTERNAL | | | Lymphocytes | performed at [facility], [address] | | LAB | | | | [address], | | | | | | [place] [address] | | | | + + + + + + | % Monocytes | 10.07Comment: Testing | % | EXTERNAL | | | | performed at [facility], [address] | | LAB | | | | [address], | | | | | | [place] [address] | | | | + + + + + + | % | 4.41Comment: Testing | % | EXTERNAL | | | Eosinophils | performed at [facility], [address] | | LAB | | | | [address], | | | | | | [place] [address] | | | | + + + + + + | % Basophils | 1.07Comment: Testing | % | EXTERNAL | | | | performed at [facility], [address] | | LAB | | | | [address], | | | | | | [place] [address] | | | | + + + + + + | Absolute | 5.59Comment: Testing | 1.90 - 7.40 | EXTERNAL | | | Segmented | performed at [facility], [address] | K/uL | LAB | | | Neutrophils | [address], | | | | | | [place] [address] | | | | + + + + + + | Absolute | 3.48Comment: Testing | 1.00 - 3.90 | EXTERNAL | | | Lymphocytes | performed at [facility], [address] | K/uL | LAB | | | | [address], | | | | | | [place] [address] | | | | + + + + + + | Absolute | 1.08 (H)Comment: Testing | 0.00 - 0.80 | EXTERNAL | | | Monocytes | performed at [facility], [address] | [address]/uL | LAB | | | | [address], | | | | | | [place] [address] | | | | + + + + + + | Absolute | 0.47Comment: Testing | 0.00 - 0.50 | EXTERNAL | | | Eosinophils | performed at [facility], [address] | K/uL | LAB | | | | [address], | | | | | | [place] [address] | | | | + + + + + + | Absolute | 0.12 (H)Comment: Testing | 0.00 - 0.10 | EXTERNAL | | | Basophils | performed at [facility], [address] | [address] | LAB | | | | [address], | | | | | | [place] [address] | | | | + + + + + + | RBC | NORMAL RBC MORPHComment: | | EXTERNAL | | | Morphology | Testing performed at | | LAB | | | | [facility], [address] | | | | | | [place] | | | | | | [address] | | | | + + + + + + | Differentia | 1+ GIANT PLTComment: | | EXTERNAL | | | l Comments | Testing performed at | | LAB | | | | [facility], [address] | | | | | | [place] | | | | | | [address] | | | | + + + [...] | | | | | [place] [address] | | | | + + + + + + | K | 3.2 (L)Comment: Testing | 3.5 - 4.9 | EXTERNAL | | | | performed at [facility], [address] | mmol/L | LAB | | | | [address], | | | | | | [place] [address] | | | | + + + + + + | Cl | 100Comment: Testing | 99 - 109 mmol/L | EXTERNAL | | | | performed at [facility], [address] | | LAB | | | | [address], | | | | | | [place] [address] | | | | + + + + + + | CO2 | 28Comment: Testing | 23 - 32 mmol/L | EXTERNAL | | | | performed at [facility], [address] | | LAB | | | | [address], | | | | | | [place] [address] | | | | + + + + + + | Anion Gap | 13Comment: Testing | 5 - 20 mmol/L | EXTERNAL | | | | performed at [facility], [address] | | LAB | | | | [address], | | | | | | [place] [address] | | | | + + + + + + | Glucose, | 114 (H)Comment: Testing | 65 - 99 mg/dL | EXTERNAL | | | Fasting | performed at [facility], [address] | | LAB | | | | [address], | | | | | | [place] [address] | | | | + + + + + + | BUN | 8Comment: Testing | 8 - 25 mg/dL | EXTERNAL | | | | performed at [facility], [address] | | LAB | | | | [address], | | | | | | [place] [address] | | | | + + + + + + | Creatinine | 0.94Comment: Testing | 0.50 - 1.00 | EXTERNAL | | | | performed at [facility], [address] | mg/dL | LAB | | | | [address], | | | | | | [place] [address] | | | | + + + + + + | BUN/Creatin | 9Comment: Testing | | EXTERNAL | | | ine Ratio | performed at [facility], [address] | | LAB | | | | [address], | | | | | | [place] [address] | | | | + + + + + + | Calcium | 7.8 (L)Comment: Testing | 8.5 - 10.5 | EXTERNAL | | | | performed at [facility], [address] | mg/dL | LAB | | | | [address], | | | | | | [place] [address] | | | | + + + + + + | Protein, | 7.8Comment: Testing | 6.3 - 8.2 g/dL | EXTERNAL | | | Total | performed at [facility], [address] | | LAB | | | | [address], | | | | | | [place] [address] | | | | + + + + + + | Albumin | 3.3Comment: Testing | 3.3 - 4.8 g/dL | EXTERNAL | | | | performed at [facility], [address] | | LAB | | | [address], | | | | | | [place] [address] | | | | + + + + + + | Globulin | 4.5Comment: Testing | 1.3 - 4.9 g/dL | EXTERNAL | | | | performed at [facility], [address] | | LAB | | | [address], | | | | | | [place] [address] | | | | + + + + + + | A/G Ratio | 0.7 (L)Comment: Testing | 1.0 - 2.4 | EXTERNAL | | | | performed at [facility], [address] | | LAB | | | | [address], | | | | | | [place] [address] | | | | + + + + + + | Bilirubin | 0.4Comment: Testing | 0.1 - 1.5 mg/dL | EXTERNAL | | | Total | performed at [facility], [address] | | LAB | | | | [address], | | | | | | [place] [address] | | | | + + + + + + | ALP, | 83Comment: Testing | 35 - 115 U/L | EXTERNAL | | | External | performed at [facility], [address] | | LAB | | | | [address], | | | | | | [place] [address] | | | | + + + + + + | AST | 34Comment: Testing | 10 - 45 U/L | EXTERNAL | | | | performed at [facility], [address] | | LAB | | | | [address], | | | | | | [place] [address] | | | | + + + + + + | ALT | 24Comment: Testing | 10 - 65 U/L | EXTERNAL | | | | performed at [facility], [address] | | LAB | | | | [facility], | | | | | | [place] [address] | | | | + + + [...] W | | | | | | [facility], | | | | | | [place] [address] | | | | + + + [...] LAB | | | | performed at [facility] | | | | | | [address] [facility];[place], [place] | | | | | | [address] | | | | + + + [...] LAB | | | | performed at [facility];[address] | | | | | | [address];[place], [place] | | | | | | [address] | | | | + + + [...] EXTERNAL | | | | performed at [facility];[address] | mmol/L | LAB | | | | [address];[place], [place] | | | | | | [address] | | | | + + + [...] EXTERNAL | | | | performed at [facility];[address] | | LAB | | | | [address];[place], [place] | | | | | | [address] | | | | + + + [...] TESTING. | | | Testing performed at [facility], [address] | | | [place] [address] | | + + + + +---------+ [...] | Testing performed at | | | [facility], [address] [place] [address] | | + + + + +---------+ [...] NONE SEEN to 1+ Testing performed at [facility], [address] [facility] | | | [place] [address] | | + + + + +---------+ [...] antigen detected by ICA Testing performed at [facility], [address] | | | [address] [facility] [place] [address] | | + + + + +---------+ [...] at | | | | | | [facility], [address] | | | | | | [place] | | | | | | [address] | | | | + + + [...] [place] | | | | | | [place] [address] | | | | + + + [...] EXTERNAL | | | | performed at [facility];[address] | | LAB | | | | [facility];[place], [place] | | | | | | [address] | | | | + + + + + + | CMV DNA | NOT DETECTEDComment: | | EXTERNAL | | | QUANTITATIV | Unit: IU/MLTesting | | LAB | | | E INTERP | performed at [facility], [address] | | | | | | [place] | | | | | | [place] [address] | | | | + + + + + + | CMV DNA, | NOT DETECTEDComment: | | EXTERNAL | | | Qual PCR | Unit: COPIES/MLTesting | | LAB | | | | performed at [facility], [address] | | | | | | [place] | | | | | | [place] [address] | | | | + + + [...] [place] | | | | | | [address] | | | | + + + [...] EXTERNAL | | | | performed at [facility], [address] | K/uL | LAB | | | | [address], | | | | | | [place] [address] | | | | + + + + + + | RED CELL | 3.28 (L)Comment: Testing | 3.70 - 5.10 | EXTERNAL | | | COUNT | performed at [facility], [address] | M/uL | LAB | | | | [address], | | | | | | [place] [address] | | | | + + + + + + | Hgb | 11.6Comment: Testing | 11.3 - 15.5 | EXTERNAL | | | | performed at [facility], [address] | g/dL | LAB | | | | [address], | | | | | | [place] [address] | | | | + + + + + + | Hematocrit, | 34.5Comment: Testing | 34.0 - 46.0 % | EXTERNAL | | | POC | performed at [facility], [address] | | LAB | | | | [address], | | | | | | [place] [address] | | | | + + + + + + | MCV | 105.1 (H)Comment: | 80.0 - 100.0 fl | EXTERNAL | | | | Testing performed at | | LAB | | | | [facility], [address] | | | | | | [place] | | | | | | [address] | | | | + + + + + + | MCH | 35.3 (H)Comment: Testing | 27.0 - 34.0 pg | EXTERNAL | | | | performed at [facility], [address] | | LAB | | | | [address], | | | | | | [place] [address] | | | | + + + + + + | MCHC | 33.5Comment: Testing | 32.0 - 35.5 | EXTERNAL | | | | performed at [facility], [address] | g/dL | LAB | | | | [address], | | | | | | [place] [address] | | | | + + + + + + | RDW-CV | 50.8Comment: Testing | 37 - 53 fl | EXTERNAL | | | | performed at [facility], [address] | | LAB | | | | [address], | | | | | | [place] [address] | | | | + + + + + + | Platelet | 144 (L)Comment: Testing | 150 - 400 K/uL | EXTERNAL | | | Count | performed at [facility], [address] | | LAB | | | Plasma | [address], | | | | | | [place] [address] | | | | + + + + + + | MPV | 13.0Comment: Testing | fl | EXTERNAL | | | | performed at [facility], [address] | | LAB | | | | [address], | | | | | | [place] [address] | | | | + + + + + + | Differentia | AUTOMATEDComment: | | EXTERNAL | | | l Type | Testing performed at | | LAB | | | | [facility], [address] | | | | | | [place] | | | | | | [address] | | | | + + + + + + | % Segmented | 37.99Comment: Testing | % | EXTERNAL | | | | performed at [facility], [address] | | LAB | | | Neutrophils | [address], | | | | | | [place] [address] | | | | + + + + + + | % | 43.49Comment: Testing | % | EXTERNAL | | | Lymphocytes | performed at [facility], [address] | | LAB | | | | [address], | | | | | | [place] [address] | | | | + + + + + + | % Monocytes | 11.24Comment: Testing | % | EXTERNAL | | | | performed at [facility], [address] | | LAB | | | | [address], | | | | | | [place] [address] | | | | + + + + + + | % | 5.97Comment: Testing | % | EXTERNAL | | | Eosinophils | performed at [facility], [address] | | LAB | | | [address], | | | | | | [place] [address] | | | | + + + + + + | % Basophils | 1.31Comment: Testing | % | EXTERNAL | | | | performed at [facility], [address] | | LAB | | | | [address], | | | | | | [place] [address] | | | | + + + + + + | Absolute | 4.01Comment: Testing | 1.90 - 7.40 | EXTERNAL | | | Segmented | performed at [facility], [address] | [address] | LAB | | | Neutrophils | [address], | | | | | | [place] [address] | | | | + + + + + + | Absolute | 4.59 (H)Comment: Testing | 1.00 - 3.90 | EXTERNAL | | | Lymphocytes | performed at [facility], [address] | [address] | LAB | | | | [address], | | | | | | [place] [address] | | | | + + + + + + | Absolute | 1.19 (H)Comment: Testing | 0.00 - 0.80 | EXTERNAL | | | Monocytes | performed at [facility], [address] | [address] | LAB | | | | [address], | | | | | | [place] [address] | | | | + + + + + + | Absolute | 0.63 (H)Comment: Testing | 0.00 - 0.50 | EXTERNAL | | | Eosinophils | performed at [facility], [address] | [address] | LAB | | | | [address], | | | | | | [place] [address] | | | | + + + + + + | Absolute | 0.14 (H)Comment: Testing | 0.00 - 0.10 | EXTERNAL | | | Basophils | performed at [facility], [address] | [address] | LAB | | | | [address], | | | | | | [place] [address] | | | | + + + + + + | RBC | NORMAL RBC MORPHComment: | | EXTERNAL | | | Morphology | Testing performed at | | LAB | | | | [facility], [address] | | | | | | [place] | | | | | | [address] | | | | + + + + + + | Differentia | 2+ GIANT PLTComment: | | EXTERNAL | | | l Comments | Testing performed at | | LAB | | | | [facility], [address] | | | | | | [place] | | | | | | [address] | | | | + + + [...] [place] | | | | | | [address] | | | | + + + [...] | | | (REF) | performed at [facility], [address] | | LAB | | | | [address], | | | | | | [place] [address] | | | | + + + [...] | | | | | [place] [address] | | | | + + + [...] EXTERNAL | | | | performed at [facility], [address] | | LAB | | | | [address], | | | | | | [place] [address] | | | | + + + [...] | | | | | [place] [address] | | | | + + + + + + | K | 3.0 (L)Comment: Testing | 3.5 - 4.9 | EXTERNAL | | | | performed at [facility], [address] | mmol/L | LAB | | | | [address], | | | | | | [place] [address] | | | | + + + + + + | Cl | 104Comment: Testing | 99 - 109 mmol/L | EXTERNAL | | | | performed at [facility], [address] | | LAB | | | [address], | | | | | | [place] [address] | | | | + + + + + + | CO2 | 22 (L)Comment: Testing | 23 - 32 mmol/L | EXTERNAL | | | | performed at [facility], [address] | | LAB | | | | [address], | | | | | | [place] [address] | | | | + + + + + + | Anion Gap | 15Comment: Testing | 5 - 20 mmol/L | EXTERNAL | | | | performed at [facility], [address] | | LAB | | | | [address], | | | | | | [place] [address] | | | | + + + + + + | Glucose, | 82Comment: Testing | 65 - 99 mg/dL | EXTERNAL | | | Fasting | performed at [facility], [address] | | LAB | | | | [address], | | | | | | [place] [address] | | | | + + + + + + | BUN | 13Comment: Testing | 8 - 25 mg/dL | EXTERNAL | | | | performed at [facility], [address] | | LAB | | | | [address], | | | | | | [place] [address] | | | | + + + + + + | Creatinine | 1.01 (H)Comment: Testing | 0.50 - 1.00 | EXTERNAL | | | | performed at [facility], [address] | mg/dL | LAB | | | | [address], | | | | | | [place] [address] | | | | + + + + + + | BUN/Creatin | 13Comment: Testing | | EXTERNAL | | | ine Ratio | performed at [facility], [address] | | LAB | | | | [address], | | | | | | [place] [address] | | | | + + + + + + | Calcium | 7.7 (L)Comment: Testing | 8.5 - 10.5 | EXTERNAL | | | | performed at [facility], [address] | mg/dL | LAB | | | | [address], | | | | | | [place] [address] | | | | + + + + + + | Protein, | 7.1Comment: Testing | 6.3 - 8.2 g/dL | EXTERNAL | | | Total | performed at [facility], [address] | | LAB | | | | [address], | | | | | | [place] [address] | | | | + + + + + + | Albumin | 3.2 (L)Comment: Testing | 3.3 - 4.8 g/dL | EXTERNAL | | | | performed at [facility], [address] | | LAB | | | | [address], | | | | | | [place] [address] | | | | + + + + + + | Globulin | 3.9Comment: Testing | 1.3 - 4.9 g/dL | EXTERNAL | | | | performed at [facility], [address] | | LAB | | | | [address], | | | | | | [place] [address] | | | | + + + + + + | A/G Ratio | 0.8 (L)Comment: Testing | 1.0 - 2.4 | EXTERNAL | | | | performed at [facility], [address] | | LAB | | | | [address], | | | | | | [place] [address] | | | | + + + + + + | Bilirubin | 0.4Comment: Testing | 0.1 - 1.5 mg/dL | EXTERNAL | | | Total | performed at [facility], [address] | | LAB | | | | [address], | | | | | | [place] [address] | | | | + + + + + + | ALP, | 76Comment: Testing | 35 - 115 U/L | EXTERNAL | | | External | performed at [facility], [address] | | LAB | | | | [address], | | | | | | [place] [address] | | | | + + + + + + | AST | 26Comment: Testing | 10 - 45 U/L | EXTERNAL | | | | performed at [facility], [address] | | LAB | | | | [address], | | | | | | [place] [address] | | | | + + + + + + | ALT | 19Comment: Testing | 10 - 65 U/L | EXTERNAL | | | | performed at [facility], [address] | | LAB | | | | [address], | | | | | | [place] [address] | | | | + + + [...] Jose, | | | | | | [place] [address] | | | | + + + [...] LAB | | | | performed at [facility], [address] | | | | | | [facility], | | | | | | [place] [address] | | | | + + + [...] | | | Urine | performed at [facility], [address] | | LAB | | | Random | [address], | | | | | | [place] [address] | | | | + + + [...] | at [facility], [address] [place] [address] | | + + + + +---------+ [...] LA/Ao: 1.57 D-E Excursion: 2.11 cm E-F Pleasants: 0.09 m/s | | | EPSS: 0.48 [...] TV A Billy: 0.66 m/s TV Dec Pleasants: 4.36 m/s2 TV Dec | | | Time: 184.41 ms TV E Billy: 0.80 m/s TV E/A Ratio: 1.21 | | | Project Production Engineer: NERDA Authenticated by: Gil Coronel MD Report | [...] | Index (A-L): 40.51 ml/m2LAAs A2C: 24.56 [id number] A-L A2C: 76.32 mlLAESV MOD A2C: | | 73.52 mlLALs A2C: 6.71 cmLAAs A4C: 24.96 zj4SNSIP A-L A4C: 79.86 mlLAESV MOD A4C: | | 77.20 mlLALs A4C: 6.62 cmAo Diam: 2.73 cmAV Cusp: 2.27 cmLA Diam: 4.29 | | cmLA/Ao: 1.57D-E Excursion: 2.11 cmE-F Pleasants: 0.09 m/sEPSS: 0.48 cmHR: 77.41 | | BPMAV maxP.05 mmHgAV meanP.21 mmHgAV Vmax: 1.73 m/Sorin Vmean: 1.25 m/Sorin | | VTI: 34.68 cmAVA Vmax: 2.07 cm2AVA (VTI): 1.85 hx2JSGK Dopp: 2.60 l/ooub4HVYT | | Dopp: 5.05 l/minHR: 78.81 BPMLVOT [...] | m/sTV A Billy: 0.66 m/sTV Dec Pleasants: 4.36 m/s2TV Dec Time: 184.41 msTV E Billy: 0.80 | | m/sTV E/A Ratio: 1.21 Project Production Engineer: GDAuthenticated by: [facility] | | Date/Time: 01-15-2015 09:12:05 IMPRESSION: 1. [...] | |D-E Excursion: 2.11 cm | |E-F Pleasants: 0.09 m/s | |EPSS: 0.48 cm | [...] A Billy: 0.66 m/s | |TV Dec Pleasants: 4.36 m/s2 | |TV Dec Time: 184.41 ms | |TV E Billy: 0.80 m/s | |TV E/A Ratio: 1.21 | | | |Project Production Engineer: NEDRA | |Authenticated by: Gil Coronel MD [...] | EXTERNAL LAB | | performed at [facility];[address] [facility];[place] [address] 027 NAP1 BI | | | 027 NAP1 BI PRESUMPTIVE NEGATIVE | | | Detection of 027 NAP1 BI strains of C. difficile is presumptive and | | | for epidemiological purposes and not intended to guide or monitor | | | treatment for C. difficile infections. Testing performed at [facility];[address] | | | [facility];[place] [address] | | + + + + +---------+ [...] | | | | | [place] [address] | | | | + + + + + + | Complement | 19.4Comment: Testing | 10 - 40 mg/dL | EXTERNAL | | | Comp 4 | performed at [facility], [address] | | LAB | | | | [address], | | | | | | [place] [address] | | | | + + + [...] | | | | | | ACUTE MD Testing | | | | | | performed at [facility];[address] | | | | | | [address];[place], [place] | | | | | | [address] | | | | + + + [...] K/uL | LAB | | | | [facility];[address];[place] [address] | | | | + + + + + + | RED CELL | 3.27 (L)Comment: Testing | 3.70 - 5.10 | EXTERNAL | | | COUNT | performed at [facility];[address] | M/u[address] | LAB | | | | [address];[place] | | | | | | [address] | | | | + + + + + + | Hgb | 11.2 (L)Comment: Testing | 11.3 - 15.5 | EXTERNAL | | | | performed at [facility];[address] | g/dL | LAB | | | | [address];[place] | | | | | | [address] | | | | + + + + + + | Hematocrit, | 34.4Comment: Testing | 34.0 - 46.0 % | EXTERNAL | | | POC | performed at [facility];[address] | | LAB | | | | [address];[place] | | | | | | [address] | | | | + + + + + + | MCV | 105.2 (H)Comment: | 80.0 - 100.0 fl | EXTERNAL | | | | Testing performed at | | LAB | | | | [facility];[address];[place] [address] | | | | + + + + + + | MCH | 34.2 (H)Comment: Testing | 27.0 - 34.0 pg | EXTERNAL | | | | performed at [facility];[address] | | LAB | | | | [address];[place] | | | | | | [address] | | | | + + + + + + | MCHC | 32.5Comment: Testing | 32.0 - 35.5 | EXTERNAL | | | | performed at [facility];[address] | g/dL | LAB | | | | [address];[place] | | | | | | [address] | | | | + + + + + + | RDW-CV | 50.3Comment: Testing | 37 - 53 fl | EXTERNAL | | | | performed at [facility];[address] | | LAB | | | | [address];[place] | | | | | | [address] | | | | + + + + + + | Platelet | 160Comment: Testing | 150 - 400 K/uL | EXTERNAL | | | Count | performed at [facility];[address] | | LAB | | | Plasma | [address];[place] | | | | | | [address] | | | | + + + + + + | MPV | 11.1Comment: Testing | fl | EXTERNAL | | | | performed at [facility];[address] | | LAB | | | | [address];[place] | | | | | | [address] | | | | + + + + + + | Differentia | AUTOMATEDComment: | | EXTERNAL | | | l Type | Testing performed at | | LAB | | | | [facility];[address];[place] [address] | | | | + + + + + + | % Segmented | 50.65Comment: Testing | % | EXTERNAL | | | | performed at [facility];[address] | | LAB | | | Neutrophils | [address];[place] | | | | | | [address] | | | | + + + + + + | % | 37.06Comment: Testing | % | EXTERNAL | | | Lymphocytes | performed at [facility];[address] | | LAB | | | | [address];[place] | | | | | | [address] | | | | + + + + + + | % Monocytes | 9.60Comment: Testing | % | EXTERNAL | | | | performed at [facility];[address] | | LAB | | | | [address];[place] | | | | | | [address] | | | | + + + + + + | % | 1.30Comment: Testing | % | EXTERNAL | | | Eosinophils | performed at [facility];[address] | | LAB | | | | [address];[place] | | | | | | [address] | | | | + + + + + + | % Basophils | 1.39Comment: Testing | % | EXTERNAL | | | | performed at [facility];[address] | | LAB | | | | [address];[place] | | | | | | [address] | | | | + + + + + + | Absolute | 6.64Comment: Testing | 1.90 - 7.40 | EXTERNAL | | | Segmented | performed at [facility];[address] | K/uL | LAB | | | Neutrophils | [address];[place] | | | | | | [address] | | | | + + + + + + | Absolute | 4.86 (H)Comment: Testing | 1.00 - 3.90 | EXTERNAL | | | Lymphocytes | performed at [facility];[address] | K/uL | LAB | | | | [address];[place] | | | | | | [address] | | | | + + + + + + | Absolute | 1.26 (H)Comment: Testing | 0.00 - 0.80 | EXTERNAL | | | Monocytes | performed at [facility];[address] | K/uL | LAB | | | | [address];[place] | | | | | | [address] | | | | + + + + + + | Absolute | 0.17Comment: Testing | 0.00 - 0.50 | EXTERNAL | | | Eosinophils | performed at [facility];[address] | K/uL | LAB | | | | [address];[place] | | | | | | [address] | | | | + + + + + + | Absolute | 0.18 (H)Comment: Testing | 0.00 - 0.10 | EXTERNAL | | | Basophils | performed at [facility];[address] | K/uL | LAB | | | | [address];[place] | | | | | | [address] | | | | + + + [...] EXTERNAL | | | | performed at [facility];[address] | | LAB | | | | [facility];[place], [place] | | | | | | [address] | | | | + + + [...] LAB | | | | performed at [facility];[address] | | | | | | [address];[place], [place] | | | | | | [address] | | | | + + + [...] EXTERNAL | | | | performed at [facility];[address] | mmol/L | LAB | | | | [address];[place] | | | | | | [address] | | | | + + + + + + | K | 3.7Comment: SLT | 3.5 - 4.9 | EXTERNAL | | | | HEMOLYSISTesting | mmol/L | LAB | | | | performed at [facility];[address] | | | | | | [address];[place] | | | | | | [address] | | | | + + + + + + | Cl | 110 (H)Comment: Testing | 99 - 109 mmol/L | EXTERNAL | | | | performed at [facility];[address] | | LAB | | | | [address];[place] | | | | | | [address] | | | | + + + + + + | CO2 | 24Comment: Testing | 23 - 32 mmol/L | EXTERNAL | | | | performed at [facility];[address] | | LAB | | | | [address];[place] | | | | | | [address] | | | | + + + + + + | Anion Gap | 13Comment: Testing | 5 - 20 mmol/L | EXTERNAL | | | | performed at [facility];[address] | | LAB | | | | [address];[place] | | | | | | [address] | | | | + + + + + + | Glucose, | 109 (H)Comment: Testing | 65 - 99 mg/dL | EXTERNAL | | | Fasting | performed at [facility];[address] | | LAB | | | | [address];[place] | | | | | | [address] | | | | + + + + + + | BUN | 24Comment: Testing | 8 - 25 mg/dL | EXTERNAL | | | | performed at [facility];[address] | | LAB | | | | [address];[place] | | | | | | [address] | | | | + + + + + + | Creatinine | 1.7 (H)Comment: Testing | 0.50 - 1.00 | EXTERNAL | | | | performed at [facility];[address] | mg/dL | LAB | | | | [address];[place] | | | | | | [address] | | | | + + + + + + | BUN/Creatin | 14Comment: Testing | | EXTERNAL | | | ine Ratio | performed at [facility];[address] | | LAB | | | | [address];[place] | | | | | | [address] | | | | + + + + + + | Calcium | 7.4 (L)Comment: Testing | 8.5 - 10.5 | EXTERNAL | | | | performed at [facility];[address] | mg/dL | LAB | | | | [address];[place] | | | | | | [address] | | | | + + + + + + | Protein, | 7.0Comment: Testing | 6.3 - 8.2 g/dL | EXTERNAL | | | Total | performed at [facility];[address] | | LAB | | | | [address];[place] | | | | | | [address] | | | | + + + + + + | Albumin | 2.6 (L)Comment: Testing | 3.3 - 4.8 g/dL | EXTERNAL | | | | performed at [facility];[address] | | LAB | | | | [address];[place] | | | | | | [address] | | | | + + + + + + | Globulin | 4.3Comment: Testing | 1.3 - 4.9 g/dL | EXTERNAL | | | | performed at [facility];[address] | | LAB | | | | [address];[place] | | | | | | [address] | | | | + + + + + + | A/G Ratio | 0.6 (L)Comment: Testing | 1.0 - 2.4 | EXTERNAL | | | | performed at [facility];[address] | | LAB | | | | [address];[place] | | | | | | [address] | | | | + + + + + + | Bilirubin | 0.4Comment: Testing | 0.1 - 1.5 mg/dL | EXTERNAL | | | Total | performed at [facility];[address] | | LAB | | | | [address];[place] | | | | | | [address] | | | | + + + + + + | ALP, | 92Comment: Testing | 35 - 115 U/L | EXTERNAL | | | External | performed at [facility];[address] | | LAB | | | | [address];[place] | | | | | | [address] | | | | + + + + + + | AST | 35Comment: SLT | 10 - 45 U/L | EXTERNAL | | | | HEMOLYSISTesting | | LAB | | | | performed at [facility];[address] | | | | | | [facility];[place] | | | | | | [address] | | | | + + + + + + | ALT | 29Comment: Testing | 10 - 65 U/L | EXTERNAL | | | | performed at [facility];[address] | | LAB | | | | [address];[place] | | | | | | [address] | | | | + + + [...] | | | | | | at [facility];[address] [facility] | | | | | | Blvd;[place] [address] | | | | + + + [...] EXTERNAL | | | | performed at [facility];888 | uIU/mL | LAB | | | | [address];[place], [place] | | | | | | [address] | | | | + + + [...] + + | Historically converted procedure from [facility] environment | EXTERNAL LAB | + [...] | | | | | | ACUTE MD Testing | | | | | | performed at [facility];[address] | | | | | | [facility];[place], [place] | | | | | | [address] | | | | + + + [...] GROWTH | | | Testing performed at [facility], | | | [address] [place] [address] | | + + + + +---------+ [...] | | study for comparison: None FINDINGS: 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 | | | degenerative [...] study | | for comparison: None FINDINGS: 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 degenerative changes of the [...] NEGATIVE Testing | | | performed at [facility];[address] [place] [address];[place] [address] | | + + + + +---------+ [...] | | | | | | at [facility];[address] [place] [address] | | | | | | [facility];[place] [address] | | | | + + + [...] EXTERNAL | | | | performed at [facility];[address] | | LAB | | | | [address];[place], [place] | | | | | | [address] | | | | + + + [...] EXTERNAL | | | | performed at [facility] | | LAB | | | | [address];[place] | | | | | | [address] | | | | + + + [...] EXTERNAL | | | | performed at [facility];[address] | mmol/L | LAB | | | | [address];[place], [place] | | | | | | [address] | | | | + + + [...] | | | | | [place] [address] | | | | + + + [...] [place] | | | | | | [address] | | | | + + + [...] (500), | | | | | | editor trade journal Shala Gramajo | | | | | [...] EXTERNAL | | | | performed at [facility];[address] | | LAB | | | | [address];[place] | | | | | | [address] | | | | + + + [...] EXTERNAL | | | | performed at [facility];[address] | | LAB | | | | [facility];[place], [place] | | | | | | [address] | | | | + + + [...] LAB | | | | performed at [facility] | | | | | | [address];[place], [place] | | | | | | [address] | | | | + + + [...] EXTERNAL | | | | performed at [facility];[address] | | LAB | | | | [address];[place], [place] | | | | | | [address] | | | | + + + [...] EXTERNAL | | | | performed at [facility];[address] | | LAB | | | | [address];[place] | | | | | | [address] | | | | + + + [...] K/uL | LAB | | | | [facility];[address] | | | | | | [address];[place] [address] | | | | + + + + + + | RED CELL | 4.17Comment: Testing | 3.70 - 5.10 | EXTERNAL | | | COUNT | performed at [facility];[address] | M/uL | LAB | | | | [address];[place] | | | | | | [address] | | | | + + + + + + | Hgb | 14.6Comment: Testing | 11.3 - 15.5 | EXTERNAL | | | | performed at [facility];888 | g/dL | LAB | | | | [address];[place] | | | | | | [address] | | | | + + + + + + | Hematocrit, | 42.7Comment: Testing | 34.0 - 46.0 % | EXTERNAL | | | POC | performed at [facility];[address] | | LAB | | | | [address];[place] | | | | | | [address] | | | | + + + + + + | MCV | 102.3 (H)Comment: | 80.0 - 100.0 fl | EXTERNAL | | | | Testing performed at | | LAB | | | | [facility];[address] | | | | | [address];[place] [address] | | | | + + + + + + | MCH | 35.0 (H)Comment: Testing | 27.0 - 34.0 pg | EXTERNAL | | | | performed at [facility];[address] | | LAB | | | | [address];[place] | | | | | | [address] | | | | + + + + + + | MCHC | 34.2Comment: Testing | 32.0 - 35.5 | EXTERNAL | | | | performed at [facility];888 | g/dL | LAB | | | | [address];[place] | | | | | | [address] | | | | + + + + + + | RDW-CV | 49.9Comment: Testing | 37 - 53 fl | EXTERNAL | | | | performed at [facility];[address] | | LAB | | | | [address];[place] | | | | | | [address] | | | | + + + + + + | Platelet | 209Comment: Testing | 150 - 400 K/uL | EXTERNAL | | | Count | performed at [facility];[address] | | LAB | | | Plasma | [address];[place] | | | | | | [address] | | | | + + + + + + | MPV | 11.1Comment: Testing | fl | EXTERNAL | | | | performed at [facility];[address] | | LAB | | | | [address];[place] | | | | | | [address] | | | | + + + + + + | RBC | 1+Comment: GIANT | | EXTERNAL | | | Morphology | PLATELETS1+MACROTesting | | LAB | | | | performed at [facility];[address] | | | | | | [address];[place] | | | | | | [address] | | | | | |Testing performed at [facility] [place];[address];[place] [address] | | | | | | | | | | + + + + + + | Differentia | MANUALComment: Testing | | EXTERNAL | | | l Type | performed at [facility] [place];[address] | | LAB | | | | [address];[place] | | | | | | [address] | | | | + + + + + + | Segmented | 58Comment: Testing | % | EXTERNAL | | | Neutrophils | performed at [facility] [place];[address] | | LAB | | | Manual | [address];[place] | | | | | | [address] | | | | + + + + + + | Lymphocytes | 32Comment: Testing | % | EXTERNAL | | | Manual | performed at [facility] [place];[address] | | LAB | | | | [address];[place] | | | | | | [address] | | | | + + + + + + | Monocytes | 9Comment: Testing | % | EXTERNAL | | | Manual | performed at [facility] [place];[address] | | LAB | | | | [address];[place] | | | | | | [address] | | | | + + + + + + | Eosinophils | 1Comment: Testing | % | EXTERNAL | | | Manual | performed at [facility] [place];[address] | | LAB | | | | [address];[place] | | | | | | [address] | | | | + + + + + + | Absolute | 9.39 (H)Comment: Testing | 1.90 - 7.40 | EXTERNAL | | | Neutrophils | performed at [facility] [place];888 | K/uL | LAB | | | | [address];[place] | | | | | | [address] | | | | + + + + + + | Absolute | 5.18 (H)Comment: Testing | 1.00 - 3.90 | EXTERNAL | | | Lymphocytes | performed at [facility] [place];[address] | K/uL | LAB | | | | [address];[place] | | | | | | [address] | | | | + + + + + + | Absolute | 1.46 (H)Comment: Testing | 0.00 - 0.80 | EXTERNAL | | | Monocytes | performed at [facility];888 | K/uL | LAB | | | | [address];[place] | | | | | | [address] | | | | + + + + + + | Absolute | 0.16Comment: Testing | 0.00 - 0.50 | EXTERNAL | | | Eosinophils | performed at [facility] [place];888 | K/uL | LAB | | | | [address];[place] | | | | | | [address] | | | | + + + + + + | Na | 140Comment: Testing | 135 - 143 | EXTERNAL | | | | performed at [facility] [place];888 | mmol/L | LAB | | | | [address];[place] | | | | | | [address] | | | | + + + + + + | K | 2.8 (L)Comment: Testing | 3.5 - 4.9 | EXTERNAL | | | | performed at [facility] [place];888 | mmol/L | LAB | | | | [address];[place] | | | | | | [address] | | | | + + + + + + | Cl | 100Comment: Testing | 99 - 109 mmol/L | EXTERNAL | | | | performed at [facility] [place];[address] | | LAB | | | | [address];[place] | | | | | | [address] | | | | + + + + + + | CO2 | 29Comment: Testing | 23 - 32 mmol/L | EXTERNAL | | | | performed at [facility] [place];[address] | | LAB | | | | [address];[place] | | | | | | [address] | | | | + + + + + + | Anion Gap | 14Comment: Testing | 5 - 20 mmol/L | EXTERNAL | | | | performed at [facility] [place];[address] | | LAB | | | | [address];[place] | | | | | | [address] | | | | + + + + + + | Glucose, | 107 (H)Comment: Testing | 65 - 99 mg/dL | EXTERNAL | | | Fasting | performed at [facility];888 | | LAB | | | | [address];[place] | | | | | | [address] | | | | + + + + + + | BUN | 28 (H)Comment: Testing | 8 - 25 mg/dL | EXTERNAL | | | | performed at [facility];[address] | | LAB | | | | [address];[place] | | | | | | [address] | | | | + + + + + + | Creatinine | 2.4 (H)Comment: Testing | 0.50 - 1.00 | EXTERNAL | | | | performed at [facility];888 | mg/dL | LAB | | | | [address];[place] | | | | | | [address] | | | | + + + + + + | BUN/Creatin | 12Comment: Testing | | EXTERNAL | | | ine Ratio | performed at [facility];[address] | | LAB | | | | [address];[place] | | | | | | [address] | | | | + + + + + + | Calcium | 8.1 (L)Comment: Testing | 8.5 - 10.5 | EXTERNAL | | | | performed at [facility];888 | mg/dL | LAB | | | | [address];[place] | | | | | | [address] | | | | + + + + + + | Protein, | 9.3 (H)Comment: Testing | 6.3 - 8.2 g/dL | EXTERNAL | | | Total | performed at [facility];888 | | LAB | | | | [address];[place] | | | | | | [address] | | | | + + + + + + | Albumin | 3.3Comment: Testing | 3.3 - 4.8 g/dL | EXTERNAL | | | | performed at [facility];[address] | | LAB | | | | [address];[place] | | | | | | [address] | | | | + + + + + + | Globulin | 6.0 (H)Comment: Testing | 1.3 - 4.9 g/dL | EXTERNAL | | | | performed at [facility];[address] | | LAB | | | | [address];[place] | | | | | | [address] | | | | + + + + + + | A/G Ratio | 0.5 (L)Comment: Testing | 1.0 - 2.4 | EXTERNAL | | | | performed at [facility];[address] | | LAB | | | | [address];[place] | | | | | | [address] | | | | + + + + + + | Bilirubin | 0.4Comment: Testing | 0.1 - 1.5 mg/dL | EXTERNAL | | | Total | performed at [facility];[address] | | LAB | | | | [address];[place] | | | | | | [address] | | | | + + + + + + | ALP, | 129 (H)Comment: Testing | 35 - 115 U/L | EXTERNAL | | | External | performed at [facility];[address] | | LAB | | | | [address];[place] | | | | | | [address] | | | | + + + + + + | AST | 39Comment: Testing | 10 - 45 U/L | EXTERNAL | | | | performed at [facility];888 | | LAB | | | | [address];[place] | | | | | | [address] | | | | + + + + + + | ALT | 38Comment: Testing | 10 - 65 U/L | EXTERNAL | | | | performed at [facility];[address] | | LAB | | | | [address];[place] | | | | | | [address] | | | | + + + [...] | | | | | | at [facility];[address] | | | | | | [address];[place] [address] | | | | + + + + + + | CK, Total | 151Comment: Testing | 30 - 240 U/L | EXTERNAL | | | | performed at [facility];[address] | | LAB | | | | [address];[place] | | | | | | [address] | | | | + + + [...] | | | | | performed at [facility];[address] | | | | | | [address];[place] | | | | | | [address] | | | | + + + + + + | aPTT, | 26Comment: Testing | 23 - 32 seconds | EXTERNAL | | | Patient | performed at [facility];888 | | LAB | | | | [address];[place] | | | | | | [address] | | | | + + + + + + | CK-MB | 3.9 (H)Comment: Testing | 0.5 - 3.6 ng/mL | EXTERNAL | | | | performed at [facility];888 | | LAB | | | | [address];[place] | | | | | | [address] | | | | + + + [...] | | | | | | ACUTE MD Testing | | | | | | performed at [facility];[address] | | | | | | [address] [facility];[place], [place] | | | | | | [address] | | | | + + + [...]
--- OUTSIDE RECORDS SUMMARY | ~2019-05-09 | XMS | Encounter Summary ---
Demographics + + + | Address | [address] | | | [place] [address] | + + + | Home Phone [...] + + + | Author | [facility] | | | and [place] | + + + | Organization | [facility] | | | [...] Team Providers + +------+ + | Care Prior Authorization Nurse Name | Role | Phone | + +------+ + | Yovani Santana MD | PCP | | + +------+ + Encounter Details +--------+ + + + + | Date | Type | Department | Care Team | Description | +--------+ + + + + | 05/10/ | Hospital | [facility] | Gary Melendez, | Hypoxemia; | | 2014 | Encounter | MED CTR XRAY [address] | MD [address] | Restrictive lung | | | | [place] | [place], [place] | disease | | | | [place] [address] | [address] | | | | | [phone] | | | | | | | [...] + | MISCELLANEOUS LAB | | | [phone] | + +---------+ + + | [facility] | | | [phone] | + +---------+ + + documented in this encounter Visit Diagnoses + + | Diagnosis | + + | Hypoxemia | + + | Restrictive lung disease Other diseases of lung, not elsewhere classified | + + documented in this encounter"
--- OUTSIDE RECORDS SUMMARY | ~2019-05-09 | XMS | Encounter Summary ---
Demographics + + + | Address | [address] | | | [place] [address] | + + + | Home Phone | | + + + | Preferred Language | Unknown | + + + | Marital Status | Unknown | + + + | Jainism Affiliation | Unknown | + + + | Race | Unknown | + + + | Ethnic Group | Unknown | + + + Author + + + | Author | [facility] | + + + | Organization | [facility] | + + + | Address | Unknown | + + + | Phone | Unavailable | + + + Care Team Providers + +------+ + | Care Division Chief Name | Role | Phone | + +------+ + PCP | Unavailable | + +------+ + Reason for Visit +--------+ + | Reason | Comments | +--------+ + | Sepsis | | +--------+ + Encounter Details +--------+ + + + + | Date | Type | Department | Care Team | Description | +--------+ + + + + | 01/28/ | Emergency | [facility] Emergency | | | | 2014 | | Department [address] | | | | | [address] | | | | | | [facility] | | | | | | [place], [place] | | | | | | [address] | | | | | | [phone] | | | +--------+ + + + [...]
--- OUTSIDE RECORDS SUMMARY | ~2019-05-09 | XMS | Encounter Summary ---
Demographics + + + | Address | [address] | | | [place] [address] | + + + | Home Phone [...] Author | [facility] | + + + | Organization | [facility] | + + + | Address | Unknown | + + + | Phone | Unavailable | + + + Care Team Providers + +------+ + | Care Advertising Material Distributor Name | Role | Phone | + +------+ + PCP | Unavailable | + +------+ + Reason for Visit +--------+ + | Reason | Comments | +--------+ + | Sepsis | | +--------+ + Encounter Details +--------+ + + + + | Date | Type | Department | Care Team | Description | +--------+ + + + + | 01/28/ | Emergency | [facility] Emergency | | | | 2014 | | Department [address] | | | | | [address] | | | | | | [facility] | | | | | | [place], [place] | | | | | | [address] | | | | | | [phone] | | | +--------+ + + + [...]
--- OUTSIDE RECORDS SUMMARY | ~2019-05-09 | XMS | Encounter Summary ---
Demographics + + + | Address | [address] | | | [place] [address] | + + + | Home Phone | | + + + | Preferred Language | Unknown | + + + | Marital Status | Single | + + + | Moravian Affiliation | [phone] | + + + [...] Team Providers + +------+ + | Care Oil Field Caser Name | Role | Phone | + +------+ + | Rick Osorio DO | PCP | | + +------+ + Encounter Details +--------+ + + + + | Date | Type | Department | Care Team | Description | +--------+ + + + + | 12/05/ | Orders Only | [facility] | Emil Oliva MD | | | 2013 | | [facility] [place] | [address] | | | | | [address] | [address] [place], [place] | | | | | [address] [place], [place] | [address] | | | | | [address] | | | | | | [phone] | | | +--------+ + + + [...]
--- OUTSIDE RECORDS SUMMARY | ~2019-05-09 | XMS | Encounter Summary ---
Demographics + + + | Address | [address] | | | [place] [address] | + + + | Home Phone | | + + + | Preferred Language | Unknown | + + + | Marital Status | Unknown | + + + | Hoahaoism Affiliation | Unknown | + + + | Race | Unknown | + + + | Ethnic Group | Unknown | + + + Author + + + | Author | [facility] | + + + | Organization | [facility] | + + + | Address | Unknown | + + + | Phone | Unavailable | + + + Care Team Providers + +------+ + | Care Finisher Tailor Apprentice Name | Role | Phone | + [...] | | | | | [address], | [place], [place] | | | | | [place] [address] | [address] | | | | | [phone] | | | +--------+ + + + [...]
--- OUTSIDE RECORDS SUMMARY | ~2019-05-09 | XMS | Encounter Summary ---
Demographics + + + | Address | [address] | | | [place] [address] | + + + | Home Phone | | + + + | Preferred Language | Unknown | + + + | Marital Status | Single | + + + | Quaker Affiliation | [id number] | + + + | Race | Unknown | + + + | Ethnic Group | Unknown | + + + Author + + + | Author | [facility] | | | and [place] | + + + | Organization | [facility] | | | [...] Team Providers + +------+ + | Care Shredder Operator Name | Role | Phone | + +------+ + | Yovani Santana MD | PCP | | + +------+ + Encounter Details +--------+ + + + + | Date | Type | Department | Care Team | Description | +--------+ + + + + | 01/28/ | Hospital | [facility] | Jacob Smith, | | | 2014 - | Encounter | [facility] | MD Carmelo SANTAMARIA | | | | | CARE FLOOR [address] | [place] [address] | | | 02/03/ | | TIERA SANTAMARIA | [phone] | | | 2014 | | [place], [place] | | | | | | [address] | | | | | | [phone] | | | +--------+ + + + [...] Date of Service: 02/03/15 1029 Status: Signed Cottrell Operator: Jose Maria Espinal MD (Physician) Related Notes: Original Note by Jose Maria Espinal MD (Physician) filed at 02/04/15 1345 [facility]: Hospitalist Physician Discharge Summary Patient [...] 2-4 lpm, Presented as a transfer from [facility] in [place] for fever of 101 and altered mental s tatus. She was discharged from [facility] on 01/09/15 for elevated troponin and acute [...] antibiotics. She was brought back in to [facility] for fever and confusion. UA and CXR reportedly negative there. SBP was 90s. She had formed stool there but en route here she did develop watery stool, tested C diff + here.".......per admitting MD/Dr. Smith . The patient was admitted to [facility] with a diagnosis of Clostridium difficile infection while she was being transferred from [facility] with fever and altered mental status. Th e patient has underlying immunosuppression secondary to a remote history of liver transplant on chronic immunosuppressive therapy with azathioprine and cyclosporin. Following her trans fletcher to [facility], she was started on oral vancomycin initially [...] medically stable for discharge to return to [facility] in [place] on Jan. ADDITIONAL ISSUES 1. Recurrent atelectasis. [...] recurrent low levels of magnesium for which veelyn tellez was requiring nearly daily supplementation of [...] days. I would urge managing physician at penitentiary facility where the patient resides in [facility] to check anothe r magnesium level [...] Procedure: COLONOSCOPY; Surgeon: Juan Ramey MD; Location: [facility] ENDOSCOPY; Service: Gastroenterology; Laterality: N/A; Discharged Condition: [...] Follow up: Ki De Jesus DO [address] [facility] [address] [place] [address] Schedule an appointment as soon as possible [...] to Get Your Medications You need to sweet pickled fruit maker these prescriptions. We sent some of them to a specific pharmacy. Go t o these places to get your medications. [facility] - [place], [place] - [address] - lactobacillus granules [address] [place] [address] You may get the following medications from [...] 02/03/151608 Date of Service: 02/03/151608 Status: Signed Cottrell Operator: Pedro Partida RN (Registered Nurse) 02/03/151602 Discharge Planning Evaluation Admitting Diagnosis Elevated temp, CKD, post liver transplant Readmission Yes-within 14 days Reason for readmission Fever, confusion, C.dif Last discharge disposition [facility] Facility Needs met at last discharge Yes Picked up discharge Rx medications Yes Started prescribed DC meds Yes Understood discharge instructions Yes Assistance available Yes Concerns for meeting needs No Caregiver after Discharge Yes Mental Status Oriented Anticipated Disposition Facility Type [facility] facility [facility] Facility Other (comment) ([facility] in [place]) Disposition: Return to [facility] Transportation: Facility van to transport. All orders, [...] 02/03/15899 Date of Service: 02/02/151521 Status: Signed Cottrell Operator: Jose Maria Espinal MD (Physician) Related Notes: Original Note by Jose Maria Espinal MD (Physician) filed at 02/02/15 1950 [facility]: Hospitalist Progress Note Pt: Cole Ernst AGE/SEX: 69 y.o. female : 1945 ROOM: [facility] History of Present Illness: " The patient is a 69 y.o. female with significant past medical history of liver transplant int he 90s on cyclosporine and imuran, chronic pain on methadone, CKD st 3, chronic home O2 of unclear etiology from 2-4 lp, Presented as a transfer from [facility] in [place] for fever of 101 and altered mental s tatus. She was discharged from [facility] on 01/09/15 for elevated troponin and acute [...] antibiotics. She was brought back in to [facility] for fever and confusion. UA [...] sulfate. Case management establishing readiness of the [facility] in [place] to accept the patient in the next [...] contrast. Prior study for comparison: None FINDINGS: Dye Range Feeder 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 deg enerative changes of [...] LA/Ao: 1.57 D-E Excursion: 2.11 cm E-F Quitman: 0.09 m/s EPSS: 0.48 cm HR: 77.41 [...] TV A Billy: 0.66 m/s TV Dec Quitman: 4.36 m/s2 TV Dec Time: 184.41 ms TV E Billy: 0.80 m/s TV E/A Rat io: 1.21 Funding Specialist: NEDRA Authenticated by: Gil Martines MD Report [...] Procedure: COLONOSCOPY; Surgeon: Juan Ramey MD; Location: [facility] ENDOSCOPY; Service: Gastroenterology; Laterality: N/A; PROBLEM LIST [...] Jose Maria Espinal MD 02/02/2015 3:22 PM Jos eMaria Horne MD - 02/01/2015 5:17 PM PDT Progress Notes by Jose Maria Espinal MD at 02/01/15 5707 Author: Jose Maria Espinal MD Service: Hospitalist Author Type: Physician Filed: 02/02/15 1520 Date of Service: 02/01/151716 Status: Signed Cottrell Operator: Jose Maria Espinal MD (Physician) Related Notes: Original Note by Jose Maria Espinal MD (Physician) filed at 02/02/15 130 [facility]: Hospitalist Progress Note Pt: Cole Ernst AGE/SEX: 69 y.o. female : 1945 ROOM: [address] [place] [address] History of Present Illness: " The patient is a 69 y.o. female with significant past medical history of liver transplant int he 90s on cyclosporine and imuran, chronic pain on methadone, CKD st 3, chronic home O2 of unclear etiology from 2-4 lpm, Presented as a transfer from [facility] for fever of 101 and altered mental s tatus. She was discharged from [facility] on 01/09/15 for elevated troponin and acute [...] antibiotics. She was brought back in to [facility] for fever and confusion. UA [...] establishing readiness of the faci lity in [place] to accept the patient in the next [...] contrast. Prior study for comparison: None FINDINGS: Dye Range Feeder 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 deg enerative changes of [...] LA/Ao: 1.57 D-E Excursion: 2.11 cm E-F Quitman: 0.09 m/s EPSS: 0.48 cm HR: 77.41 [...] TV A Billy: 0.66 m/s TV Dec Quitman: 4.36 m/s2 TV Dec Time: 184.41 ms TV E Billy: 0.80 m/s TV E/A Rat io: 1.21 Funding Specialist: NEDRA Authenticated by: Gil Martines MD Report [...] Procedure: COLONOSCOPY; Surgeon: Juan Ramey MD; Location: [facility] ENDOSCOPY; Service: Gastroenterology; Laterality: N/A; PROBLEM LIST [...] Currently with normal liver function tests. 3. Nrmim-mm-eglurfc liver disease, stage III. Creatinine level has [...] 01/31/152124 Date of Service: 01/31/151513 Status: Signed Cottrell Operator: Jose Maria Espinal MD (Physician) Related Notes: Original Note by Jose Maria Espinal MD (Physician) filed at 01/31/15 1523 [facility]: Hospitalist Progress Note Pt: Cole Ernst AGE/SEX: 69 y.o. female : 1945 ROOM: [address] [place] [address] History of Present Illness: " The patient is a 69 y.o. female with significant past medical history of liver transplant int he 90s on cyclosporine and imuran, chronic pain on methadone, CKD st 3, chronic home O2 of unclear etiology from 2-4 lpm, Presented as a transfer from [facility] in [place] for fever of 101 and altered mental s tatus. She was discharged from [facility] on 01/09/15 for elevated troponin and acute [...] antibiotics. She was brought back in to [facility] for fever and confusion. UA [...] contrast. Prior study for comparison: None FINDINGS: Dye Range Feeder 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 deg enerative changes of [...] LA/Ao: 1.57 D-E Excursion: 2.11 cm E-F Quitman: 0.09 m/s EPSS: 0.48 cm HR: 77.41 [...] TV A Billy: 0.66 m/s TV Dec Quitman: 4.36 m/s2 TV Dec Time: 184.41 ms TV E Billy: 0.80 m/s TV E/A Rat io: 1.21 Funding Specialist: NEDRA Authenticated by: Gil Martines MD Report [...] Procedure: COLONOSCOPY; Surgeon: Juan Ramey MD; Location: [facility] ENDOSCOPY; Service: Gastroenterology; Laterality: N/A; PROBLEM LIST [...] 1313 Date of Service: 01/31/151312 Status: Signed Cottrell Operator: Catina Moon () Attempted visit. Pt sitting in chair sleeping. No family present. Chaplain Catina Moon onver alessandro Transaction, Provider Unknown - 01/31/2015 11:35 AM PDT Therapy Progress Note by Mahi Yanes PTA at 01/31/15 1135 Author: Mahi Yanes PTA Service: (none) Author Type: Wastewater Manager Filed: 01/31/15 1410 Date of Service: 01/31/151134 Status: Signed Cottrell Operator: Mahi Yanes PTA (Wastewater Manager) 01/31/15 1135 PT Last Visit PT [...] PDT Case Management by Gregg Keene MS, SATELLITE TV TECHNICIAN INSTALLER at 01/31/15 1007 Author: Gregg Keene, MS, SATELLITE TV TECHNICIAN INSTALLER Service: (none) Author Type: Pharmacy Affairs Assistant Filed: 01/31/15 1546 Date of Service: 01/31/15 1007 Status: Addendum Cottrell Operator: Gregg Keene , SATELLITE TV TECHNICIAN INSTALLER (Pharmacy Affairs Assistant) Related Notes: Original Note by Gregg Yecenia MS, SATELLITE TV TECHNICIAN INSTALLER (Pharmacy Affairs Assistant) filed at 01/31/15 1007 Discharge planning - CM faxed updated clinical to Gi at [facility]. Discharge form s on front of chart for MD signature. CM notified Gi of anticipated d/c this weekend. onver alessandro Transaction, Provider Unknown - 01/30/2015 5:05 PM PDT Therapy Progress Note by Gail Vernon PT at 01/30/15 1705 Author: Gail Vernon PT Service: (none) Author Type: Physical Therapist Filed: 01/30/15 3899 Date of Service: 01/30/15 1705 Status: Signed Cottrell Operator: Gail Vernon PT (Physical Therapist) 01/30/15 170 [...] Service: Hospitalist Author Type: Physician Filed: 01/31/15 1404 Date of Service: 01/30/15 1414 Status: Signed Cottrell Operator: Jose Maria Espinal MD (Physician) Related Notes: Original Note by Jose Maria Espinal MD (Physician) filed at 01/30/15 8875 [facility]: Hospitalist Progress Note Pt: Cole [...] 2-4 lpm, Presented as a transfer from [facility] in [place] for fever of 101 and altered mental s tatus. She was discharged from [facility] on 01/09/15 for elevated troponin and acute [...] antibiotics. She was brought back in to [facility] for fever and confusion. UA [...] contrast. Prior study for comparison: None FINDINGS: Dye Range Feeder 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 deg enerative changes of [...] LA/Ao: 1.57 D-E Excursion: 2.11 cm E-F Quitman: 0.09 m/s EPSS: 0.48 cm HR: 77.41 [...] TV A Billy: 0.66 m/s TV Dec Quitman: 4.36 m/s2 TV Dec Time: 184.41 ms TV E Billy: 0.80 m/s TV E/A Rat io: 1.21 Funding Specialist: NEDRA Authenticated by: Gil Martines MD Report [...] Procedure: COLONOSCOPY; Surgeon: Juan Ramey MD; Location: [facility] ENDOSCOPY; Service: Gastroenterology; Laterality: N/A; PROBLEM LIST [...] Patient's live r functions remain normal. 3. Yvuqa-cc-dkpezhw kidney disease stage III. Creatinine level has [...] by Jose Maria Espinal MD at 01/29/15 936 Author: Jose Maria Espinal MD Service: Hospitalist Author Type: Physician Filed: 01/30/15 0957 Date of Service: 01/29/151650 Status: Signed Cottrell Operator: Jose Maria Espinal MD (Physician) Related Notes: Original Note by Jose Maria Espinal MD (Physician) filed at 01/29/152024 [facility]: Hospitalist Progress Note Pt: Cole Ernst AGE/SEX: 69 y.o. female : 1945 ROOM: [address] [place] [address] History of Present Illness: " The patient is a 69 y.o. female with significant past medical history of liver transplant int he 90s on cyclosporine and imuran, chronic pain on methadone, CKD st 3, chronic home O2 of unclear etiology from 2-4 lpm, Presented as a transfer from [facility] in [place] for fever of 101 and altered mental s tatus. She was discharged from [facility] on 01/09/15 for elevated troponin and acute [...] antibiotics. She was brought back in to [facility] for fever and confusion. UA [...] contrast. Prior study for comparison: None FINDINGS: Dye Range Feeder 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 deg enerative changes of [...] Echo Cardiac Adult Complete 01/15/2015 Patient Name: COEL ERNST Date of : 1945 Performing Physician: [...] LA/Ao: 1.57 D-E Excursion: 2.11 cm E-F Quitman: 0.09 m/s EPSS: 0.48 cm HR: 77.41 [...] TV A Billy: 0.66 m/s TV Dec Quitman: 4.36 m/s2 TV Dec Time: 184.41 ms TV E Billy: 0.80 m/s TV E/A Rat io: 1.21 Funding Specialist: NEDRA Authenticated by: Gil Martines MD Report [...] Procedure: COLONOSCOPY; Surgeon: Juan Ramey MD; Location: [facility] ENDOSCOPY; Service: Gastroenterology; Laterality: N/A; PROBLEM LIST [...] Date of Service: 01/29/15 1525 Status: Signed Cottrell Operator: Pedro Partida RN (Registered Nurse) 01/29/15 1521 Discharge Planning Evaluation Admitting Diagnosis Intestinal infection C.dif. Readmission Yes-within 14 days Reason for readmission Intestinal infection C.dif Last discharge disposition [facility]-Way Facility Needs met at last discharge Yes [...] Oriented Anticipated Disposition Facility Type [facility] facility [facility]-Way Facility Other (comment) ([facility] in [place]) Met with: patient and discussed discharge planning, Pt is a 69 y.o., female who was discharged from [facility] 2 wee ks ago to [facility]. Her sister, Renée Tipton is emergency contact, . Patient's PCP is: K[facility] DE JESUS Patient's insurance: Medicare Coverage concerns: Medication coverage/concerns: Community resources utilized / needed: Assistance in transportation: Identification of any specific education / training: Barriers to Discharge / Alternative housing needed: Anticipated DCP: Return to [facility] PEDRO PARTIDA RN onver alessandro Nicole Provider Unknown - 01/29/2015 8:55 AM PDT Therapy Progress Note by Barbara Edmond PT at 01/29/15 0855 Author: Barbara Edmond PT Service: (none) Author Type: Physical Therapist Filed: 01/29/1533 Date of Service: 01/29/15854 Status: Signed Cottrell Operator: Barbara Edmond PT (Physical Therapist) 01/29/15 08 [...] to SNF after current hospital stay. Just SHOT GRINDER OPERATOR Júnior ADL's and Júnior mobility using 4ww for short room distances, had been using manual w/c in hallway at SNF. Reports a few falls at facility ov er last week, otherwise denies falls over last 6mos. Was getting therapies at facility. Prior Function Level of [place] Modified independent with ADLs;Modified independent with functional [...] Barriers to Discharge Physical Deficits Impacting Functional [place];Self-care Deficit s Impacting Functional [place];Equipment Needs (see comment);Pain Recommendation Comments Needs return [...] Barriers to Discharge Physical Deficits Impacting Functional [place];Self-care Deficit s Impacting Functional [place];Equipment Needs (see comment);Pain Recommendation Comments Needs return [...] 01/29/15831 Date of Service: 01/29/15830 Status: Signed Cottrell Operator: Malick Ramos RN (Registered Nurse) Infection Prevention Note: Patient stool is positive for C. Diff. Contact Enteric Precautions are required until furt her notice. Thank you. Malick Ramos RN, BA, Clerk Of Works onver alessandro Transaction, Provider Unknown - 01/28/2015 3:23 PM PDT Progress Notes by Jimena Duarte RPH at 01/28/151522 Author: Jimena Duarte RPH Service: (none) Author Type: Pharmacist Filed: 01/28/15 152 Date of Service: 01/28/151522 Status: Signed Cottrell Operator: Jimena Duarte RPH (Pharmacist) Zosyn Extended Infusion Initial Consult-Per Dr. Jacob Ernst 69 y.o. female CrCl cannot be calculated (Unknown ideal weight.). NEUTROPHILS ABS Date Value Ref Range Status 01/18/2015 3.26 1.90 - 7.40 K/uL Final Comment: Testing performed at [facility], [address] [place] [address] CREATININE Date Value Ref Range Status 01/19/2015 0.96 0.50 - 1.00 mg/dL Final Comment: Testing performed at [facility], [address] [place] [address] Zosyn extended Infusion loading and maintenance dose guidelines Loading Dose 4.5 g IV Over 30 minutes CrCl >20 ml/min 3.375 g IV Q 8 hours Over 4 hours CrCl 10-20 ml/min 3.375 g IV Q 12 hours Over 4 hours CrCl <10, HD, PD Follow [facility] Dosage Adjustments in Renal Dysfunction Protocol Plan [...] 01/28/151515 Date of Service: 01/28/151515 Status: Signed Cottrell Operator: Jimena Duarte RPH (Pharmacist) Renal Dosing Monitoring: [...] | | | | | [place] [address] | | | | + + + + + + | RED CELL | 2.72 (L)Comment: Testing | 3.70 - 5.10 | EXTERNAL | | | COUNT | performed at [facility], [address] | M/uL | LAB | | | | [address], | | | | | | [place] [address] | | | | + + + + + + | Hgb | 9.6 (L)Comment: Testing | 11.3 - 15.5 | EXTERNAL | | | | performed at [facility], [address] | g/dL | LAB | | | | [address], | | | | | | [place] [address] | | | | + + + + + + | Hematocrit, | 28.8 (L)Comment: Testing | 34.0 - 46.0 % | EXTERNAL | | | POC | performed at [facility], [address] | | LAB | | | | [address], | | | | | | [place] [address] | | | | + + + + + + | MCV | 106.0 (H)Comment: | 80.0 - 100.0 fl | EXTERNAL | | | | Testing performed at | | LAB | | | | [facility], [address] | | | | | | [place] | | | | | | [address] | | | | + + + + + + | MCH | 35.2 (H)Comment: Testing | 27.0 - 34.0 pg | EXTERNAL | | | | performed at [facility], [address] | | LAB | | | | [address], | | | | | | [place] [address] | | | | + + + + + + | MCHC | 33.2Comment: Testing | 32.0 - 35.5 | EXTERNAL | | | | performed at [facility], [address] | g/dL | LAB | | | | [address], | | | | | | [place] [address] | | | | + + + + + + | RDW-CV | 53.4 (H)Comment: Testing | 37 - 53 fl | EXTERNAL | | | | performed at [facility], [address] | | LAB | | | | [address], | | | | | | [place] [address] | | | | + + + + + + | Platelet | 216Comment: Testing | 150 - 400 K/uL | EXTERNAL | | | Count | performed at [facility], [address] | | LAB | | | Plasma | [address], | | | | | | [place] [address] | | | | + + + + + + | MPV | 10.5Comment: Testing | fl | EXTERNAL | | | | performed at [facility], [address] | | LAB | | | | [address], | | | | | | [place], [place] [address] | | | | + + + + + + | Differentia | MANUALComment: Testing | | EXTERNAL | | | l Type | performed at [facility], [address] | | LAB | | | | [address], | | | | | | [place], [place] [address] | | | | + + + + + + | Segmented | 35Comment: Testing | % | EXTERNAL | | | Neutrophils | performed at [facility], [address] | | LAB | | | Manual | [address], | | | | | | [place] [address] | | | | + + + + + + | % Bands | 1Comment: Testing | % | EXTERNAL | | | | performed at [facility], [address] | | LAB | | | | [address], | | | | | | [place] [address] | | | | + + + + + + | Lymphocytes | 44Comment: Testing | % | EXTERNAL | | | Manual | performed at [facility], [address] | | LAB | | | | [address], | | | | | | [place] [address] | | | | + + + + + + | Monocytes | 12Comment: Testing | % | EXTERNAL | | | Manual | performed at [facility], [address] | | LAB | | | | [address], | | | | | | [place] [address] | | | | + + + + + + | Eosinophils | 8Comment: Testing | % | EXTERNAL | | | Manual | performed at [facility], [address] | | LAB | | | | [address], | | | | | | [place] [address] | | | | + + + + + + | Absolute | 3.08Comment: Testing | 1.90 - 7.40 | EXTERNAL | | | Neutrophils | performed at [facility], [address] | K/uL | LAB | | | | [address], | | | | | | [place] [address] | | | | + + + + + + | Bands | 0.09Comment: Testing | 0.00 - 0.20 | EXTERNAL | | | Manual | performed at [facility], [address] | K/uL | LAB | | | | [address], | | | | | | [place] [address] | | | | + + + + + + | Absolute | 3.88Comment: Testing | 1.00 - 3.90 | EXTERNAL | | | Lymphocytes | performed at [facility], [address] | K/uL | LAB | | | | [address], | | | | | | [place] [address] | | | | + + + + + + | Absolute | 1.06 (H)Comment: Testing | 0.00 - 0.80 | EXTERNAL | | | Monocytes | performed at [facility], [address] | K/uL | LAB | | | | [address], | | | | | | [place] [address] | | | | + + + + + + | Absolute | 0.70 (H)Comment: Testing | 0.00 - 0.50 | EXTERNAL | | | Eosinophils | performed at [facility], [address] | K/uL | LAB | | | | [address], | | | | | | [place] [address] | | | | + + + + + + | RBC | NORMAL PLT MORPHComment: | | EXTERNAL | | | Morphology | NORMAL RBC MORPHTesting | | LAB | | | | performed at [facility], [address] | | | | | | [address], | | | | | | [place] [address] | | | | + + + [...] EXTERNAL | | | | performed at [facility], [address] | | LAB | | | | [address], | | | | | | [place] [address] | | | | + + + [...] EXTERNAL | | | | performed at [facility], [address] | | LAB | | | | [address], | | | | | | [place] [address] | | | | + + + [...] | | | | | [place] [address] | | | | + + + [...] | | | | | [place] [address] | | | | + + + + + + | CO2 | 33 (H)Comment: Testing | 23 - 32 mmol/L | EXTERNAL | | | | performed at [facility], [address] | | LAB | | | | [address], | | | | | | [place] [address] | | | | + + + + + + | Anion Gap | 5Comment: Testing | 5 - 20 mmol/L | EXTERNAL | | | | performed at [facility], [address] | | LAB | | | | [address], | | | | | | [place] [address] | | | | + + + + + + | Glucose, | 105 (H)Comment: Testing | 65 - 99 mg/dL | EXTERNAL | | | Fasting | performed at [facility], [address] | | LAB | | | | [address], | | | | | | [place] [address] | | | | + + + + + + | BUN | 9Comment: Testing | 8 - 25 mg/dL | EXTERNAL | | | | performed at [facility], [address] | | LAB | | | | [address], | | | | | | [place] [address] | | | | + + + + + + | Creatinine | 0.82Comment: Testing | 0.50 - 1.00 | EXTERNAL | | | | performed at [facility], [address] | mg/dL | LAB | | | | [address], | | | | | | [place] [address] | | | | + + + + + + | BUN/Creatin | 11Comment: Testing | | EXTERNAL | | | ine Ratio | performed at [facility], [address] | | LAB | | | | [address], | | | | | | [place] [address] | | | | + + + + + + | Calcium | 8.5Comment: Testing | 8.5 - 10.5 | EXTERNAL | | | | performed at [facility], [address] | mg/dL | LAB | | | | [address], | | | | | | [place] [address] | | | | + + + + + + | Protein, | 6.3Comment: Testing | 6.3 - 8.2 g/dL | EXTERNAL | | | Total | performed at [facility], [address] | | LAB | | | | [address], | | | | | | [place] [address] | | | | + + + + + + | Albumin | 2.8 (L)Comment: Testing | 3.3 - 4.8 g/dL | EXTERNAL | | | | performed at [facility], [address] | | LAB | | | | [address], | | | | | | [place] [address] | | | | + + + + + + | Globulin | 3.5Comment: Testing | 1.3 - 4.9 g/dL | EXTERNAL | | | | performed at [facility], [address] | | LAB | | | | [address], | | | | | | [place] [address] | | | | + + + + + + | A/G Ratio | 0.8 (L)Comment: Testing | 1.0 - 2.4 | EXTERNAL | | | | performed at [facility], [address] | | LAB | | | | [address], | | | | | | [place] [address] | | | | + + + + + + | Bilirubin | 0.5Comment: Testing | 0.1 - 1.5 mg/dL | EXTERNAL | | | Total | performed at [facility], [address] | | LAB | | | | [address], | | | | | | [place] [address] | | | | + + + + + + | ALP, | 102Comment: Testing | 35 - 115 U/L | EXTERNAL | | | External | performed at [facility], [address] | | LAB | | | | [address], | | | | | | [place] [address] | | | | + + + + + + | AST | 53 (H)Comment: Testing | 10 - 45 U/L | EXTERNAL | | | | performed at [facility], [address] | | LAB | | | | [address], | | | | | | [place] [address] | | | | + + + + + + | ALT | 21Comment: Testing | 10 - 65 U/L | EXTERNAL | | | | performed at [facility], [address] | | LAB | | | | [address], | | | | | | [place] [address] | | | | + + + [...] | | | | | | at [facility], [address] | | | | | | [address] [facility], | | | | | | [place] [address] | | | | + + + [...] EXTERNAL | | | | performed at [facility];[address] | mmol/L | LAB | | | | [address];[place], [place] | | | | | | [address] | | | | + + + [...] EXTERNAL | | | | performed at [facility];[address] | | LAB | | | | [address];[place] | | | | | | [address] | | | | + + + [...] EXTERNAL | | | | performed at [facility], [address] | K/uL | LAB | | | | [address], | | | | | | [place] [address] | | | | + + + + + + | RED CELL | 2.78 (L)Comment: Testing | 3.70 - 5.10 | EXTERNAL | | | COUNT | performed at [facility], [address] | M/uL | LAB | | | | [address], | | | | | | [place] [address] | | | | + + + + + + | Hgb | 9.7 (L)Comment: Testing | 11.3 - 15.5 | EXTERNAL | | | | performed at [facility], [address] | g/dL | LAB | | | | [address], | | | | | | [place] [address] | | | | + + + + + + | Hematocrit, | 29.6 (L)Comment: Testing | 34.0 - 46.0 % | EXTERNAL | | | POC | performed at [facility], [address] | | LAB | | | | [address], | | | | | | [place] [address] | | | | + + + + + + | MCV | 106.3 (H)Comment: | 80.0 - 100.0 fl | EXTERNAL | | | | Testing performed at | | LAB | | | | [facility], [address] [facility] | | | | | | [place] | | | | | | [address] | | | | + + + + + + | MCH | 34.8 (H)Comment: Testing | 27.0 - 34.0 pg | EXTERNAL | | | | performed at [facility], [address] | | LAB | | | | [address], | | | | | | [place] [address] | | | | + + + + + + | MCHC | 32.8Comment: Testing | 32.0 - 35.5 | EXTERNAL | | | | performed at [facility], [address] | g/dL | LAB | | | | [address], | | | | | | [place] [address] | | | | + + + + + + | RDW-CV | 53.8 (H)Comment: Testing | 37 - 53 fl | EXTERNAL | | | | performed at [facility], [address] | | LAB | | | | [address], | | | | | | [place] [address] | | | | + + + + + + | Platelet | 181Comment: Testing | 150 - 400 K/uL | EXTERNAL | | | Count | performed at [facility], [address] | | LAB | | | Plasma | [address], | | | | | | [place] [address] | | | | + + + + + + | MPV | 11.3Comment: Testing | fl | EXTERNAL | | | | performed at [facility], [address] | | LAB | | | | [address], | | | | | | [place] [address] | | | | + + + + + + | Differentia | MANUALComment: Testing | | EXTERNAL | | | l Type | performed at [facility], [address] | | LAB | | | | [address], | | | | | | [place] [address] | | | | + + + + + + | Segmented | 45Comment: Testing | % | EXTERNAL | | | Neutrophils | performed at [facility], [address] | | LAB | | | Manual | [address], | | | | | | [place] [address] | | | | + + + + + + | % Bands | 1Comment: Testing | % | EXTERNAL | | | | performed at [facility], [address] | | LAB | | | | [address], | | | | | | [place] [address] | | | | + + + + + + | Lymphocytes | 35Comment: Testing | % | EXTERNAL | | | Manual | performed at [facility], [address] | | LAB | | | | [address], | | | | | | [place], [place] [address] | | | | + + + + + + | Monocytes | 11Comment: Testing | % | EXTERNAL | | | Manual | performed at [facility], [address] | | LAB | | | | [address], | | | | | | [place] [address] | | | | + + + + + + | Eosinophils | 8Comment: Testing | % | EXTERNAL | | | Manual | performed at [facility], [address] | | LAB | | | | [address], | | | | | | [place] [address] | | | | + + + + + + | Absolute | 3.85Comment: Testing | 1.90 - 7.40 | EXTERNAL | | | Neutrophils | performed at [facility], [address] | K/uL | LAB | | | | [address], | | | | | | [place] [address] | | | | + + + + + + | Bands | 0.09Comment: Testing | 0.00 - 0.20 | EXTERNAL | | | Manual | performed at [facility], [address] | K/uL | LAB | | | | [address], | | | | | | [place] [address] | | | | + + + + + + | Absolute | 3.01Comment: Testing | 1.00 - 3.90 | EXTERNAL | | | Lymphocytes | performed at [facility], [address] | K/uL | LAB | | | | [address], | | | | | | [place] [address] | | | | + + + + + + | Absolute | 0.95 (H)Comment: Testing | 0.00 - 0.80 | EXTERNAL | | | Monocytes | performed at [facility], [address] | K/uL | LAB | | | | [address], | | | | | | [place] [address] | | | | + + + + + + | Absolute | 0.69 (H)Comment: Testing | 0.00 - 0.50 | EXTERNAL | | | Eosinophils | performed at [facility], [address] | K/uL | LAB | | | | [address], | | | | | | [place] [address] | | | | + + + + + + | RBC | 2+Comment: MACRONORMAL | | EXTERNAL | | | Morphology | PLT MORPHTesting | | LAB | | | | performed at [facility], [address] | | | | | | [address], | | | | | | [place] [address] | | | | | | | [...] | | | | | [place] [address] | | | | + + + [...] EXTERNAL | | | | performed at [facility], [address] | | LAB | | | | [address], | | | | | | [place] [address] | | | | + + + [...] | | | | | [place] [address] | | | | + + + + + + | K | 3.2 (L)Comment: Testing | 3.5 - 4.9 | EXTERNAL | | | | performed at [facility], [address] | mmol/L | LAB | | | | [address], | | | | | | [place] [address] | | | | + + + + + + | Cl | 103Comment: Testing | 99 - 109 mmol/L | EXTERNAL | | | | performed at [facility], [address] | | LATA | | | | [address], | | | | | | [place] [address] | | | | + + + + + + | CO2 | 31Comment: Testing | 23 - 32 mmol/L | EXTERNAL | | | | performed at [facility], [address] | | LAB | | | | [address], | | | | | | [place] [address] | | | | + + + + + + | Anion Gap | 7Comment: Testing | 5 - 20 mmol/L | EXTERNAL | | | | performed at [facility], [address] | | LAB | | | | [address], | | | | | | [place] [address] | | | | + + + + + + | Glucose, | 104 (H)Comment: Testing | 65 - 99 mg/dL | EXTERNAL | | | Fasting | performed at [facility], [address] | | LAB | | | | [address], | | | | | | [place] [address] | | | | + + + + + + | BUN | 10Comment: Testing | 8 - 25 mg/dL | EXTERNAL | | | | performed at [facility], [address] | | LAB | | | | [address], | | | | | | [place] [address] | | | | + + + + + + | Creatinine | 0.83Comment: Testing | 0.50 - 1.00 | EXTERNAL | | | | performed at [facility], [address] | mg/dL | LAB | | | | [address], | | | | | | [place] [address] | | | | + + + + + + | BUN/Creatin | 12Comment: Testing | | EXTERNAL | | | ine Ratio | performed at [facility], [address] | | LAB | | | | [address], | | | | | | [place] [address] | | | | + + + + + + | Calcium | 8.2 (L)Comment: Testing | 8.5 - 10.5 | EXTERNAL | | | | performed at [facility], [address] | mg/dL | LAB | | | | [address], | | | | | | [place] [address] | | | | + + + + + + | Protein, | 6.2 (L)Comment: Testing | 6.3 - 8.2 g/dL | EXTERNAL | | | Total | performed at [facility], [address] | | LAB | | | | [address], | | | | | | [place] [address] | | | | + + + + + + | Albumin | 2.7 (L)Comment: Testing | 3.3 - 4.8 g/dL | EXTERNAL | | | | performed at [facility], [address] | | LAB | | | | [address], | | | | | | [place] [address] | | | | + + + + + + | Globulin | 3.5Comment: Testing | 1.3 - 4.9 g/dL | EXTERNAL | | | | performed at [facility], [address] | | LAB | | | | [address], | | | | | | [place] [address] | | | | + + + + + + | A/G Ratio | 0.8 (L)Comment: Testing | 1.0 - 2.4 | EXTERNAL | | | | performed at [facility], [address] | | LAB | | | | [address], | | | | | | [place] [address] | | | | + + + + + + | Bilirubin | 0.5Comment: Testing | 0.1 - 1.5 mg/dL | EXTERNAL | | | Total | performed at [facility], [address] | | LAB | | | | [address], | | | | | | [place] [address] | | | | + + + + + + | ALP, | 98Comment: Testing | 35 - 115 U/L | EXTERNAL | | | External | performed at [facility], [address] | | LAB | | | | [address], | | | | | | [place] [address] | | | | + + + + + + | AST | 35Comment: Testing | 10 - 45 U/L | EXTERNAL | | | | performed at [facility], [address] | | LAB | | | | [address], | | | | | | [place] [address] | | | | + + + + + + | ALT | 15Comment: Testing | 10 - 65 U/L | EXTERNAL | | | | performed at [facility], [address] | | LAB | | | | [address], | | | | | | [place] [address] | | | | + + + [...] [address], | | | | | | [place] [address] | | | | + + + [...] EXTERNAL | | | | performed at [facility], [address] | | LAB | | | | [address], | | | | | | [place] [address] | | | | + + + [...] | | | B-12 | performed at [facility], [address] | pg/mL | LAB | | | | [address], | | | | | | [place] [address] | | | | + + + [...] EXTERNAL | | | | performed at [facility], [address] | K/uL | LAB | | | | [address], | | | | | | [place] [address] | | | | + + + + + + | RED CELL | 2.72 (L)Comment: Testing | 3.70 - 5.10 | EXTERNAL | | | COUNT | performed at [facility], [address] | M/uL | LAB | | | | [address], | | | | | | [place] [address] | | | | + + + + + + | Hgb | 9.4 (L)Comment: Testing | 11.3 - 15.5 | EXTERNAL | | | | performed at [facility], [address] | g/dL | LAB | | | | [address], | | | | | | [place] [address] | | | | + + + + + + | Hematocrit, | 29.1 (L)Comment: Testing | 34.0 - 46.0 % | EXTERNAL | | | POC | performed at [facility], [address] | | LAB | | | | [address], | | | | | | [place] [address] | | | | + + + + + + | MCV | 107.3 (H)Comment: | 80.0 - 100.0 fl | EXTERNAL | | | | Testing performed at | | LAB | | | | [facility], [address] [facility] | | | | | | [place] | | | | | | [address] | | | | + + + + + + | MCH | 34.6 (H)Comment: Testing | 27.0 - 34.0 pg | EXTERNAL | | | | performed at [facility], [address] | | LAB | | | | [address], | | | | | | [place] [address] | | | | + + + + + + | MCHC | 32.2Comment: Testing | 32.0 - 35.5 | EXTERNAL | | | | performed at [facility], [address] | g/dL | LAB | | | | [address], | | | | | | [place] [address] | | | | + + + + + + | RDW-CV | 57.3 (H)Comment: Testing | 37 - 53 fl | EXTERNAL | | | | performed at [facility], [address] | | LAB | | | | [address], | | | | | | [place] [address] | | | | + + + + + + | Platelet | 174Comment: Testing | 150 - 400 K/uL | EXTERNAL | | | Count | performed at [facility], [address] | | LAB | | | Plasma | [address], | | | | | | [place] [address] | | | | + + + + + + | MPV | 10.9Comment: Testing | fl | EXTERNAL | | | | performed at [facility], [address] | | LAB | | | | [address], | | | | | | [place] [address] | | | | + + + + + + | Differentia | MANUALComment: Testing | | EXTERNAL | | | l Type | performed at [facility], [address] | | LAB | | | | [address], | | | | | | [place], [place] [address] | | | | + + + + + + | Segmented | 45Comment: Testing | % | EXTERNAL | | | Neutrophils | performed at [facility], [address] | | LAB | | | Manual | [address], | | | | | | [place], [place] [address] | | | | + + + + + + | % Bands | 1Comment: Testing | % | EXTERNAL | | | | performed at [facility], [address] | | LAB | | | | [address], | | | | | | [place], [place] [address] | | | | + + + + + + | Lymphocytes | 34Comment: Testing | % | EXTERNAL | | | Manual | performed at [facility], [address] | | LAB | | | | [address], | | | | | | [place] [address] | | | | + + + + + + | Monocytes | 11Comment: Testing | % | EXTERNAL | | | Manual | performed at [facility], [address] | | LAB | | | | [address], | | | | | | [place] [address] | | | | + + + + + + | Eosinophils | 9Comment: Testing | % | EXTERNAL | | | Manual | performed at [facility], [address] | | LAB | | | | [address], | | | | | | [place] [address] | | | | + + + + + + | Absolute | 3.77Comment: Testing | 1.90 - 7.40 | EXTERNAL | | | Neutrophils | performed at [facility], [address] | K/uL | LAB | | | | [address], | | | | | | [place] [address] | | | | + + + + + + | Bands | 0.08Comment: Testing | 0.00 - 0.20 | EXTERNAL | | | Manual | performed at [facility], [address] | K/uL | LAB | | | | [address], | | | | | | [place] [address] | | | | + + + + + + | Absolute | 2.84Comment: Testing | 1.00 - 3.90 | EXTERNAL | | | Lymphocytes | performed at [facility], [address] | K/uL | LAB | | | | [address], | | | | | | [place] [address] | | | | + + + + + + | Absolute | 0.92 (H)Comment: Testing | 0.00 - 0.80 | EXTERNAL | | | Monocytes | performed at [facility], [address] | K/uL | LAB | | | | [address], | | | | | | [place] [address] | | | | + + + + + + | Absolute | 0.75 (H)Comment: Testing | 0.00 - 0.50 | EXTERNAL | | | Eosinophils | performed at [facility], [address] | K/uL | LAB | | | | [address], | | | | | | [place] [address] | | | | + + + + + + | RBC | NORMAL PLT MORPHComment: | | EXTERNAL | | | Morphology | NORMAL RBC MORPHTesting | | LAB | | | | performed at [facility], [address] | | | | | | [address], | | | | | | [place] [address] | | | | + + + [...] EXTERNAL | | | | performed at [facility], [address] | | LAB | | | | [address], | | | | | | [place] [address] | | | | + + + [...] | | | | | [place] [address] | | | | + + + [...] | | | | | [place] [address] | | | | + + + + + + | K | 3.8Comment: Testing | 3.5 - 4.9 | EXTERNAL | | | | performed at [facility], [address] | mmol/L | LAB | | | | [address], | | | | | | [place] [address] | | | | + + + + + + | Cl | 111 (H)Comment: Testing | 99 - 109 mmol/L | EXTERNAL | | | | performed at [facility], [address] | | LAB | | | | [address], | | | | | | [place] [address] | | | | + + + + + + | CO2 | 25Comment: Testing | 23 - 32 mmol/L | EXTERNAL | | | | performed at [facility], [address] | | LAB | | | | [address], | | | | | | [place] [address] | | | | + + + + + + | Anion Gap | 5Comment: Testing | 5 - 20 mmol/L | EXTERNAL | | | | performed at [facility], [address] | | LAB | | | | [address], | | | | | | [place] [address] | | | | + + + + + + | Glucose, | 112 (H)Comment: Testing | 65 - 99 mg/dL | EXTERNAL | | | Fasting | performed at [facility], [address] | | LAB | | | | [address], | | | | | | [place] [address] | | | | + + + + + + | BUN | 13Comment: Testing | 8 - 25 mg/dL | EXTERNAL | | | | performed at [facility], [address] | | LAB | | | | [address], | | | | | | [place] [address] | | | | + + + + + + | Creatinine | 0.74Comment: Testing | 0.50 - 1.00 | EXTERNAL | | | | performed at [facility], [address] | mg/dL | LAB | | | | [address], | | | | | | [place] [address] | | | | + + + + + + | BUN/Creatin | 18Comment: Testing | | EXTERNAL | | | ine Ratio | performed at [facility], [address] | | LAB | | | | [address], | | | | | | [place] [address] | | | | + + + + + + | Calcium | 8.0 (L)Comment: Testing | 8.5 - 10.5 | EXTERNAL | | | | performed at [facility], [address] | mg/dL | LAB | | | | [address], | | | | | | [place] [address] | | | | + + + + + + | Protein, | 5.9 (L)Comment: Testing | 6.3 - 8.2 g/dL | EXTERNAL | | | Total | performed at [facility], [address] | | LAB | | | | [address], | | | | | | [place] [address] | | | | + + + + + + | Albumin | 2.6 (L)Comment: Testing | 3.3 - 4.8 g/dL | EXTERNAL | | | | performed at [facility], [address] | | LAB | | | [address], | | | | | | [place] [address] | | | | + + + + + + | Globulin | 3.3Comment: Testing | 1.3 - 4.9 g/dL | EXTERNAL | | | | performed at [facility], [address] | | LAB | | | | [address], | | | | | | [place] [address] | | | | + + + + + + | A/G Ratio | 0.8 (L)Comment: Testing | 1.0 - 2.4 | EXTERNAL | | | | performed at [facility], [address] | | LAB | | | | [address], | | | | | | [place] [address] | | | | + + + + + + | Bilirubin | 0.4Comment: Testing | 0.1 - 1.5 mg/dL | EXTERNAL | | | Total | performed at [facility], [address] | | LAB | | | | [address], | | | | | | [place] [address] | | | | + + + + + + | ALP, | 93Comment: Testing | 35 - 115 U/L | EXTERNAL | | | External | performed at [facility], [address] | | LAB | | | | [address], | | | | | | [place] [address] | | | | + + + + + + | AST | 23Comment: Testing | 10 - 45 U/L | EXTERNAL | | | | performed at [facility], [address] | | LAB | | | | [address], | | | | | | [place] [address] | | | | + + + + + + | ALT | 14Comment: Testing | 10 - 65 U/L | EXTERNAL | | | | performed at [facility], [address] | | LAB | | | | [employer] [address] [address], | | | | | | [place] [address] | | | | + + + [...] | | | | | [place] [address] | | | | + + + [...] EXTERNAL | | | | performed at [facility], [address] | K/uL | LAB | | | | [address], | | | | | | [place] [address] | | | | + + + + + + | RED CELL | 2.78 (L)Comment: Testing | 3.70 - 5.10 | EXTERNAL | | | COUNT | performed at [facility], [address] | M/uL | LAB | | | | [address], | | | | | | [place] [address] | | | | + + + + + + | Hgb | 9.7 (L)Comment: Testing | 11.3 - 15.5 | EXTERNAL | | | | performed at [facility], [address] | g/dL | LAB | | | | [address], | | | | | | [place] [address] | | | | + + + + + + | Hematocrit, | 29.9 (L)Comment: Testing | 34.0 - 46.0 % | EXTERNAL | | | POC | performed at [facility], [address] | | LAB | | | | [address], | | | | | | [place] [address] | | | | + + + + + + | MCV | 107.5 (H)Comment: | 80.0 - 100.0 fl | EXTERNAL | | | | Testing performed at | | LAB | | | | [facility], [address] [facility] | | | | | | [place] | | | | | | [address] | | | | + + + + + + | MCH | 34.9 (H)Comment: Testing | 27.0 - 34.0 pg | EXTERNAL | | | | performed at [facility], [address] | | LAB | | | | [address], | | | | | | [place] [address] | | | | + + + + + + | MCHC | 32.5Comment: Testing | 32.0 - 35.5 | EXTERNAL | | | | performed at [facility], [address] | g/dL | LAB | | | | [address], | | | | | | [place] [address] | | | | + + + + + + | RDW-CV | 57.3 (H)Comment: Testing | 37 - 53 fl | EXTERNAL | | | | performed at [facility], [address] | | LAB | | | | [address], | | | | | | [place] [address] | | | | + + + + + + | Platelet | 162Comment: Testing | 150 - 400 K/uL | EXTERNAL | | | Count | performed at [facility], [address] | | LAB | | | Plasma | [address], | | | | | | [place] [address] | | | | + + + + + + | MPV | 11.6Comment: Testing | fl | EXTERNAL | | | | performed at [facility], [address] | | LAB | | | | [address], | | | | | | [place], [place] [address] | | | | + + + + + + | Differentia | MANUALComment: Testing | | EXTERNAL | | | l Type | performed at [facility], [address] | | LAB | | | | [address], | | | | | | [place], [place] [address] | | | | + + + + + + | Segmented | 31Comment: Testing | % | EXTERNAL | | | Neutrophils | performed at [facility], [address] | | LAB | | | Manual | [address], | | | | | | [place], [place] [address] | | | | + + + + + + | Lymphocytes | 52Comment: Testing | % | EXTERNAL | | | Manual | performed at [facility], [address] | | LAB | | | | [address], | | | | | | [place] [address] | | | | + + + + + + | Monocytes | 11Comment: Testing | % | EXTERNAL | | | Manual | performed at [facility], [address] | | LAB | | | | [address], | | | | | | [place] [address] | | | | + + + + + + | Eosinophils | 6Comment: Testing | % | EXTERNAL | | | Manual | performed at [facility], [address] | | LAB | | | | [address], | | | | | | [place] [address] | | | | + + + + + + | Absolute | 3.19Comment: Testing | 1.90 - 7.40 | EXTERNAL | | | Neutrophils | performed at [facility], [address] | K/uL | LAB | | | | [address], | | | | | | [place] [address] | | | | + + + + + + | Absolute | 5.36 (H)Comment: Testing | 1.00 - 3.90 | EXTERNAL | | | Lymphocytes | performed at [facility], [address] | K/uL | LAB | | | | [address], | | | | | | [place] [address] | | | | + + + + + + | Absolute | 1.13 (H)Comment: Testing | 0.00 - 0.80 | EXTERNAL | | | Monocytes | performed at [facility], [address] | LAB | | | | [address], | | | | | | [place] [address] | | | | + + + + + + | Absolute | 0.62 (H)Comment: Testing | 0.00 - 0.50 | EXTERNAL | | | Eosinophils | performed at [facility], [address] | LAB | | | | [address], | | | | | | [place] [address] | | | | + + + + + + | RBC | 2+Comment: MACRONORMAL | | EXTERNAL | | | Morphology | PLT MORPHTesting | | LAB | | | | performed at [facility], [address] | | | | | | [address], | | | | | | [place] [address] | | | | | | | [...] EXTERNAL | | | | performed at [facility], [address] | | LAB | | | | [address], | | | | | | [place] [address] | | | | + + + [...] EXTERNAL | | | | performed at [facility], [address] | | LAB | | | | [address], | | | | | | [place] [address] | | | | + + + [...] | | | | | [place] [address] | | | | + + + + + + | K | 4.2Comment: Testing | 3.5 - 4.9 | EXTERNAL | | | | performed at [facility], [address] | mmol/L | LAB | | | | [address], | | | | | | [place] [address] | | | | + + + + + + | Cl | 112 (H)Comment: Testing | 99 - 109 mmol/L | EXTERNAL | | | | performed at [facility], [address] | | LAB | | | | [address], | | | | | | [place] [address] | | | | + + + + + + | CO2 | 27Comment: Testing | 23 - 32 mmol/L | EXTERNAL | | | | performed at [facility], [address] | | LAB | | | | [address], | | | | | | [place] [address] | | | | + + + + + + | Anion Gap | 4 (L)Comment: Testing | 5 - 20 mmol/L | EXTERNAL | | | | performed at [facility], [address] | | LAB | | | | [address], | | | | | | [place] [address] | | | | + + + + + + | Glucose, | 94Comment: Testing | 65 - 99 mg/dL | EXTERNAL | | | Fasting | performed at [facility], [address] | | LAB | | | | [address], | | | | | | [place] [address] | | | | + + + + + + | BUN | 19Comment: Testing | 8 - 25 mg/dL | EXTERNAL | | | | performed at [facility], [address] | | LAB | | | | [address], | | | | | | [place] [address] | | | | + + + + + + | Creatinine | 1.01 (H)Comment: Testing | 0.50 - 1.00 | EXTERNAL | | | | performed at [facility], [address] | mg/dL | LAB | | | | [address], | | | | | | [place] [address] | | | | + + + + + + | BUN/Creatin | 19Comment: Testing | | EXTERNAL | | | ine Ratio | performed at [facility], [address] | | LAB | | | | [address], | | | | | | [place] [address] | | | | + + + + + + | Calcium | 8.1 (L)Comment: Testing | 8.5 - 10.5 | EXTERNAL | | | | performed at [facility], [address] | mg/dL | LAB | | | | [address], | | | | | | [place] [address] | | | | + + + + + + | Protein, | 5.9 (L)Comment: Testing | 6.3 - 8.2 g/dL | EXTERNAL | | | Total | performed at [facility], [address] | | LAB | | | | [address], | | | | | | [place] [address] | | | | + + + + + + | Albumin | 2.5 (L)Comment: Testing | 3.3 - 4.8 g/dL | EXTERNAL | | | | performed at [facility], [address] | | LAB | | | | [address], | | | | | | [place] [address] | | | | + + + + + + | Globulin | 3.4Comment: Testing | 1.3 - 4.9 g/dL | EXTERNAL | | | | performed at [facility], [address] | | LAB | | | | [address], | | | | | | [place] [address] | | | | + + + + + + | A/G Ratio | 0.7 (L)Comment: Testing | 1.0 - 2.4 | EXTERNAL | | | | performed at [facility], [address] | | LAB | | | | [address], | | | | | | [place] [address] | | | | + + + + + + | Bilirubin | 0.3Comment: Testing | 0.1 - 1.5 mg/dL | EXTERNAL | | | Total | performed at [facility], [address] | | LAB | | | | [address], | | | | | | [place] [address] | | | | + + + + + + | ALP, | 98Comment: Testing | 35 - 115 U/L | EXTERNAL | | | External | performed at [facility], [address] | | LAB | | | | [address], | | | | | | [place] [address] | | | | + + + + + + | AST | 24Comment: Testing | 10 - 45 U/L | EXTERNAL | | | | performed at [facility], [address] | | LAB | | | | [address], | | | | | | [place] [address] | | | | + + + + + + | ALT | 14Comment: Testing | 10 - 65 U/L | EXTERNAL | | | | performed at [facility], [address] | | LAB | | | | [facility], | | | | | | [place] [address] | | | | + + + [...] W | | | | | | [facility], | | | | | | [place] [address] | | | | + + + [...] [place] | | | | | | [address] | | | | + + +---- + + + | RED CELL | 2.93 (L)Comment: Testing | 3.7 0 - 5.10 | EXTERNAL | | | COUNT | performed at [facility], [address] | M/u L | LAB | | | | [address], | | | | | | [place] [address] | | | | + + +---- + + + | Hgb | 10.2 (L)Comment: Testing | 11. 3 - 15.5 | EXTERNAL | | | | performed at [facility], [address] | g/d L | LAB | | | | [address], | | | | | | [place] [address] | | | | + + +---- + + + | Hematocrit, | 31.6 (L)Comment: Testing | 34. 0 - 46.0 % | EXTERNAL | | | POC | performed at [facility], [address] | | LAB | | | | [address], | | | | | | [place] [address] | | | | + + +---- + + + | MCV | 107.8 (H)Comment: | 80. 0 - 100.0 fl | EXTERNAL | | | | Testing performed at | | LAB | | | | [facility], [address] | | | | | | [place] | | | | | | [address] | | | | + + +---- + + + | MCH | 34.8 (H)Comment: Testing | 27. 0 - 34.0 pg | EXTERNAL | | | | performed at [facility], [address] | | LAB | | | | [address], | | | | | | [place] [address] | | | | + + +---- + + + | MCHC | 32.3Comment: Testing | 32. 0 - 35.5 | EXTERNAL | | | | performed at [facility], [address] | g/d L | LAB | | | | [address], | | | | | | [place] [address] | | | | + + +---- + + + | RDW-CV | 57.3 (H)Comment: Testing | 37 - 53 fl | EXTERNAL | | | | performed at [facility], [address] | | LAB | | | | [address], | | | | | | [place] [address] | | | | + + +---- + + + | Platelet | 146 (L)Comment: Testing | 150 - 400 K/uL | EXTERNAL | | | Count | performed at [facility], [address] | | LAB | | | Plasma | [address], | | | | | | [place] [address] | | | | + + +---- + + + | MPV | 11.2Comment: Testing | fl | EXTERNAL | | | | performed at [facility], [address] | | LAB | | | | [address], | | | | | | [place] [address] | | | | + + +---- + + + | Differentia | MANUALComment: Testing | | EXTERNAL | | | l Type | performed at [facility], [address] | | LAB | | | | [address], | | | | | | [place] [address] | | | | + + +---- + + + | Segmented | 58Comment: Testing | % | EXTERNAL | | | Neutrophils | performed at [facility], [address] | | LAB | | | Manual | [address], | | | | | | [place] [address] | | | | + + +---- + + + | % Bands | 20Comment: Testing | % | EXTERNAL | | | | performed at [facility], [address] | | LAB | | | | [address], | | | | | | [place] [address] | | | | + + +---- + + + | Lymphocytes | 13Comment: Testing | % | EXTERNAL | | | Manual | performed at [facility], [address] | | LAB | | | | [address], | | | | | | [place] [address] | | | | + + +---- + + + | Monocytes | 7Comment: Testing | % | EXTERNAL | | | Manual | performed at [facility], [address] | | LAB | | | | [address], | | | | | | [place] [address] | | | | + + +---- + + + | Eosinophils | 2Comment: Testing | % | EXTERNAL | | | Manual | performed at [facility], [address] | | LAB | | | | [address], | | | | | | [place] [address] | | | | + + +---- + + + | Absolute | 9.23 (H)Comment: Testing | 1.9 0 - 7.40 | EXTERNAL | | | Neutrophils | performed at [facility], [address] | K/u L | LAB | | | | [address], | | | | | | [place] [address] | | | | + + +---- + + + | Bands | 3.18 (H)Comment: Testing | 0.0 0 - 0.20 | EXTERNAL | | | Manual | performed at [facility], [address] | K/u L | LAB | | | | [address], | | | | | | [place] [address] | | | | + + +---- + + + | Absolute | 2.07Comment: Testing | 1.0 0 - 3.90 | EXTERNAL | | | Lymphocytes | performed at [facility], [address] | K/u L | LAB | | | | [address], | | | | | | [place] [address] | | | | + + +---- + + + | Absolute | 1.11 (H)Comment: Testing | 0.0 0 - 0.80 | EXTERNAL | | | Monocytes | performed at [facility], [address] | K/u L | LAB | | | | [address], | | | | | | [place] [address] | | | | + + +---- + + + | Absolute | 0.32Comment: Testing | 0.0 0 - 0.50 | EXTERNAL | | | Eosinophils | performed at [facility], [address] | K/u L | LAB | | | | [address], | | | | | | [place] [address] | | | | + + +---- + + + | RBC | 2+Comment: | | EXTERNAL | | | Morphology | MACRO1+ANISONORMAL PLT | | LAB | | | | MORPHTesting performed | | | | | | at [facility], [address] | | | | | | [employer], | | | | | | [place] [address] | | | | | |Testing performed at [facility], [address] [place] [address] | | | | | | | [...] EXTERNAL | | | | performed at [facility], [address] | | LAB | | | | [address], | | | | | | [place] [address] | | | | + + + [...] | | | | | [place] [address] | | | | + + + [...] | | | | | [place] [address] | | | | + + + + + + | K | 3.9Comment: Testing | 3.5 - 4.9 | EXTERNAL | | | | performed at [facility], [address] | mmol/L | LAB | | | | [address], | | | | | | [place] [address] | | | | + + + + + + | Cl | 109Comment: Testing | 99 - 109 mmol/L | EXTERNAL | | | | performed at [facility], [address] | | LAB | | | | [address], | | | | | | [place] [address] | | | | + + + + + + | CO2 | 24Comment: Testing | 23 - 32 mmol/L | EXTERNAL | | | | performed at [facility], [address] | | LAB | | | | [address], | | | | | | [place] [address] | | | | + + + + + + | Anion Gap | 8Comment: Testing | 5 - 20 mmol/L | EXTERNAL | | | | performed at [facility], [address] | | LAB | | | | [address], | | | | | | [place] [address] | | | | + + + + + + | Glucose, | 98Comment: Testing | 65 - 99 mg/dL | EXTERNAL | | | Fasting | performed at [facility], [address] | | LAB | | | | [address], | | | | | | [place] [address] | | | | + + + + + + | BUN | 25Comment: Testing | 8 - 25 mg/dL | EXTERNAL | | | | performed at [facility], [address] | | LAB | | | | [address], | | | | | | [place] [address] | | | | + + + + + + | Creatinine | 1.39 (H)Comment: Testing | 0.50 - 1.00 | EXTERNAL | | | | performed at [facility], [address] | mg/dL | LAB | | | | [address], | | | | | | [place] [address] | | | | + + + + + + | BUN/Creatin | 18Comment: Testing | | EXTERNAL | | | ine Ratio | performed at [facility], [address] | | LAB | | | | [address], | | | | | | [place] [address] | | | | + + + + + + | Calcium | 8.2 (L)Comment: Testing | 8.5 - 10.5 | EXTERNAL | | | | performed at [facility], [address] | mg/dL | LAB | | | | [address], | | | | | | [place] [address] | | | | + + + + + + | Protein, | 6.1 (L)Comment: Testing | 6.3 - 8.2 g/dL | EXTERNAL | | | Total | performed at [facility], [address] | | LAB | | | | [address], | | | | | | [place] [address] | | | | + + + + + + | Albumin | 2.4 (L)Comment: Testing | 3.3 - 4.8 g/dL | EXTERNAL | | | | performed at [facility], [address] | | LAB | | | | [address], | | | | | | [place] [address] | | | | + + + + + + | Globulin | 3.7Comment: Testing | 1.3 - 4.9 g/dL | EXTERNAL | | | | performed at [facility], [address] | | LAB | | | | [address], | | | | | | [place] [address] | | | | + + + + + + | A/G Ratio | 0.6 (L)Comment: Testing | 1.0 - 2.4 | EXTERNAL | | | | performed at [facility], [address] | | LAB | | | | [address], | | | | | | [place] [address] | | | | + + + + + + | Bilirubin | 0.4Comment: Testing | 0.1 - 1.5 mg/dL | EXTERNAL | | | Total | performed at [facility], [address] | | LAB | | | | [address], | | | | | | [place] [address] | | | | + + + + + + | ALP, | 111Comment: Testing | 35 - 115 U/L | EXTERNAL | | | External | performed at [facility], [address] | | LAB | | | | [address], | | | | | | [place] [address] | | | | + + + + + + | AST | 29Comment: Testing | 10 - 45 U/L | EXTERNAL | | | | performed at [facility], [address] | | LAB | | | | [address], | | | | | | [place] [address] | | | | + + + + + + | ALT | 14Comment: Testing | 10 - 65 U/L | EXTERNAL | | | | performed at [facility], [address] | | LAB | | | | [address], | | | | | | [place] [address] | | | | + + + [...] | | | | | | at [facility], [address] | | | | | | [employer] [address], | | | | | | [place] [address] | | | | + + + [...] | | | | [facility], [address] [facility] | | | | | | [place] | | | | | | [address] | | | | + + + + + + | RED CELL | 3.12 (L)Comment: Testing | 3.70 - 5.10 | EXTERNAL | | | COUNT | performed at [facility], [address] | M/uL | LAB | | | | [address] [place], | | | | | | [place] [address] | | | | + + + + + + | Hgb | 10.8 (L)Comment: Testing | 11.3 - 15.5 | EXTERNAL | | | | performed at [facility], [address] | g/dL | LAB | | | | [address], | | | | | | [place] [address] | | | | + + + + + + | Hematocrit, | 33.7 (L)Comment: Testing | 34.0 - 46.0 % | EXTERNAL | | | POC | performed at [facility], [address] | | LAB | | | | [address], | | | | | | [place] [address] | | | | + + + + + + | MCV | 108.0 (H)Comment: | 80.0 - 100.0 fl | EXTERNAL | | | | Testing performed at | | LAB | | | | [facility], [address] | | | | | | [place] | | | | | | [address] | | | | + + + + + + | MCH | 34.7 (H)Comment: Testing | 27.0 - 34.0 pg | EXTERNAL | | | | performed at [facility], [address] | | LAB | | | | [address], | | | | | | [place] [address] | | | | + + + + + + | MCHC | 32.1Comment: Testing | 32.0 - 35.5 | EXTERNAL | | | | performed at [facility], [address] | g/dL | LAB | | | | [address], | | | | | | [place] [address] | | | | + + + + + + | RDW-CV | 55.6 (H)Comment: Testing | 37 - 53 fl | EXTERNAL | | | | performed at [facility], [address] | | LAB | | | | [address], | | | | | | [place] [address] | | | | + + + + + + | Platelet | 153Comment: Testing | 150 - 400 K/uL | EXTERNAL | | | Count | performed at [facility], [address] | | LAB | | | Plasma | [address], | | | | | | [place] [address] | | | | + + + + + + | MPV | 11.2Comment: Testing | fl | EXTERNAL | | | | performed at [facility], [address] | | LAB | | | | [address], | | | | | | [place], [place] [address] | | | | + + + + + + | Differentia | MANUALComment: Testing | | EXTERNAL | | | l Type | performed at [facility], [address] | | LAB | | | | [address], | | | | | | [place], [place] [address] | | | | + + + + + + | Segmented | 64Comment: Testing | % | EXTERNAL | | | Neutrophils | performed at [facility], [address] | | LAB | | | Manual | [address], | | | | | | [place] [address] | | | | + + + + + + | % Bands | 15Comment: Testing | % | EXTERNAL | | | | performed at [facility], [address] | | LAB | | | | [address], | | | | | | [place] [address] | | | | + + + + + + | % | 2Comment: Testing | % | EXTERNAL | | | Metamyelocy | performed at [facility], [address] | | LAB | | | [address] | [address], | | | | | | [place] [address] | | | | + + + + + + | Lymphocytes | 12Comment: Testing | % | EXTERNAL | | | Manual | performed at [facility], [address] | | LAB | | | | [address], | | | | | | [place] [address] | | | | + + + + + + | Monocytes | 6Comment: Testing | % | EXTERNAL | | | Manual | performed at [facility], [address] | | LAB | | | | [address], | | | | | | [place] [address] | | | | + + + + + + | Eosinophils | 1Comment: Testing | % | EXTERNAL | | | Manual | performed at [facility], [address] | | LAB | | | | [address] [place], | | | | | | [place] [address] | | | | + + + + + + | Absolute | 11.48 (H)Comment: | 1.90 - 7.40 | EXTERNAL | | | Neutrophils | Testing performed at | K/uL | LAB | | | | [facility] [address] [facility] | | | | | | [place] | | | | | | [address] | | | | + + + + + + | Bands | 2.69 (H)Comment: Testing | 0.00 - 0.20 | EXTERNAL | | | Manual | performed at [facility], [address] | K/uL | LAB | | | | [address], | | | | | | [place] [address] | | | | + + + + + + | Absolute | 0.36 (H)Comment: Testing | K/uL | EXTERNAL | | | Metamyelocy | performed at [facility], [address] | | LAB | | | [address] | [address] [place], | | | | | | [place] [address] | | | | + + + + + + | Absolute | 2.15Comment: Testing | 1.00 - 3.90 | EXTERNAL | | | Lymphocytes | performed at [facility], [address] | K/uL | LAB | | | | [address], | | | | | | [place] [address] | | | | + + + + + + | Absolute | 1.08 (H)Comment: Testing | 0.00 - 0.80 | EXTERNAL | | | Monocytes | performed at [facility], [address] | K/uL | LAB | | | | [address], | | | | | | [place] [address] | | | | + + + + + + | Absolute | 0.18Comment: Testing | 0.00 - 0.50 | EXTERNAL | | | Eosinophils | performed at [facility], [address] | K/uL | LAB | | | | [address], | | | | | | [place] [address] | | | | + + + + + + | RBC | 2+Comment: MACRONORMAL | | EXTERNAL | | | Morphology | PLT MORPHTesting | | LAB | | | | performed at [facility], [address] | | | | | | [address], | | | | | | [place] [address] | | | | | | | [...] EXTERNAL | | | | performed at [facility];[address] | mmol/L | LAB | | | | [address];[place] | | | | | | [address] | | | | + + + + + + | K | 3.8Comment: Testing | 3.5 - 4.9 | EXTERNAL | | | | performed at [facility];[address] | mmol/L | LAB | | | | [address];[place] | | | | | | [address] | | | | + + + + + + | Cl | 107Comment: Testing | 99 - 109 mmol/L | EXTERNAL | | | | performed at [facility];[address] | | LAB | | | | [address];[place] | | | | | | [address] | | | | + + + + + + | CO2 | 26Comment: Testing | 23 - 32 mmol/L | EXTERNAL | | | | performed at [facility];[address] | | LAB | | | | [address];[place] | | | | | | [address] | | | | + + + + + + | Anion Gap | 12Comment: Testing | 5 - 20 mmol/L | EXTERNAL | | | | performed at [facility];[address] | | LAB | | | | [address];[place] | | | | | | [address] | | | | + + + + + + | Glucose, | 127 (H)Comment: Testing | 65 - 99 mg/dL | EXTERNAL | | | Fasting | performed at [facility];[address] | | LAB | | | | [address];[place] | | | | | | [address] | | | | + + + + + + | BUN | 28 (H)Comment: Testing | 8 - 25 mg/dL | EXTERNAL | | | | performed at [facility];[address] | | LAB | | | | [address];[place] | | | | | | [address] | | | | + + + + + + | Creatinine | 1.8 (H)Comment: Testing | 0.50 - 1.00 | EXTERNAL | | | | performed at [facility];888 | mg/dL | LAB | | | | [address];[place] | | | | | | [address] | | | | + + + + + + | BUN/Creatin | 16Comment: Testing | | EXTERNAL | | | ine Ratio | performed at [facility];[address] | | LAB | | | | [address];[place] | | | | | | [address] | | | | + + + + + + | Calcium | 7.6 (L)Comment: Testing | 8.5 - 10.5 | EXTERNAL | | | | performed at [facility];888 | mg/dL | LAB | | | | [address];[place] | | | | | | [address] | | | | + + + [...] | | | | | | at [facility];[address];[place] [address] | | | | + + + [...] | | | | | | at [facility];[address] [place] [address] | | | | | | [facility];[place] [address] | | | | + + + [...] LAB | | | | [facility], [address] [facility] | | | | | | [place] | | | | | | [address] | | | | + + +---- + + + | RED CELL | 3.07 (L)Comment: Testing | 3.7 0 - 5.10 | EXTERNAL | | | COUNT | performed at [facility], [address] | M/u L | LAB | | | | [address] [place], | | | | | | [place] [address] | | | | + + +---- + + + | Hgb | 10.8 (L)Comment: Testing | 11. 3 - 15.5 | EXTERNAL | | | | performed at [facility], [address] | g/d L | LAB | | | | [address], | | | | | | [place] [address] | | | | + + +---- + + + | Hematocrit, | 32.7 (L)Comment: Testing | 34. 0 - 46.0 % | EXTERNAL | | | POC | performed at [facility], [address] | | LAB | | | | [address] [place], | | | | | | [place] [address] | | | | + + +---- + + + | MCV | 106.4 (H)Comment: | 80. 0 - 100.0 fl | EXTERNAL | | | | Testing performed at | | LAB | | | | [facility], [address] | | | | | | [place] | | | | | | [address] | | | | + + +---- + + + | MCH | 35.1 (H)Comment: Testing | 27. 0 - 34.0 pg | EXTERNAL | | | | performed at [facility], [address] | | LAB | | | | [address] [place], | | | | | | [place] [address] | | | | + + +---- + + + | MCHC | 33.0Comment: Testing | 32. 0 - 35.5 | EXTERNAL | | | | performed at [facility], [address] | g/d L | LAB | | | | [address], | | | | | | [place] [address] | | | | + + +---- + + + | RDW-CV | 56.0 (H)Comment: Testing | 37 - 53 fl | EXTERNAL | | | | performed at [facility], [address] | | LAB | | | | [address], | | | | | | [place] [address] | | | | + + +---- + + + | Platelet | 151Comment: Testing | 150 - 400 K/uL | EXTERNAL | | | Count | performed at [facility], [address] | | LAB | | | Plasma | [address], | | | | | | [place] [address] | | | | + + +---- + + + | MPV | 11.7Comment: Testing | fl | EXTERNAL | | | | performed at [facility], [address] | | LAB | | | | [address], | | | | | | [place] [address] | | | | + + +---- + + + | Differentia | MANUALComment: Testing | | EXTERNAL | | | l Type | performed at [facility], [address] | | LAB | | | | [address] [place], | | | | | | [place] [address] | | | | + + +---- + + + | Segmented | 57Comment: Testing | % | EXTERNAL | | | Neutrophils | performed at [facility], [address] | | LAB | | | Manual | [address] [place], | | | | | | [place] [address] | | | | + + +---- + + + | % Bands | 26Comment: Testing | % | EXTERNAL | | | | performed at [facility], [address] | | LAB | | | | [address] [place], | | | | | | [place] [address] | | | | + + +---- + + + | % | 4Comment: Testing | % | EXTERNAL | | | Metamyelocy | performed at [facility], [address] | | LAB | | | irma | [address] [place], | | | | | | [place] [address] | | | | + + +---- + + + | Lymphocytes | 9Comment: Testing | % | EXTERNAL | | | Manual | performed at [facility], [address] | | LAB | | | | [address], | | | | | | [place] [address] | | | | + + +---- + + + | Monocytes | 4Comment: Testing | % | EXTERNAL | | | Manual | performed at [facility], [address] | | LAB | | | | [address] [place], | | | | | | [place] [address] | | | | + + +---- + + + | Absolute | 10.53 (H)Comment: | 1.9 0 - 7.40 | EXTERNAL | | | Neutrophils | Testing performed at | K/u L | LAB | | | | [facility], [address] | | | | | | [place] | | | | | | [address] | | | | + + +---- + + + | Bands | 4.80 (H)Comment: Testing | 0.0 0 - 0.20 | EXTERNAL | | | Manual | performed at [facility], [address] | K/u L | LAB | | | | [address] [place], | | | | | | [place] [address] | | | | + + +---- + + + | Absolute | 0.74 (H)Comment: Testing | K/u L | EXTERNAL | | | Metamyelocy | performed at [facility], [address] | | LAB | | | [address]ma | [address] [place], | | | | | | [place] [address] | | | | + + +---- + + + | Absolute | 1.66Comment: Testing | 1.0 0 - 3.90 | EXTERNAL | | | Lymphocytes | performed at [facility], [address] | K/u L | LAB | | | | [address], | | | | | | [place] [address] | | | | + + +---- + + + | Absolute | 0.74Comment: Testing | 0.0 0 - 0.80 | EXTERNAL | | | Monocytes | performed at [facility], [address] | K/u L | LAB | | | [address], | | | | | | [place] [address] | | | | + + +---- + + + | RBC | 2+Comment: | | EXTERNAL | | | Morphology | MACRO1+ANISONORMAL PLT | | LAB | | | | MORPHTesting performed | | | | | | at [facility], [address] | | | | | | [facility], | | | | | | [place] [address] | | | | | |Testing performed at [facility], [address] [facility], [place] [address] | | | | | | | [...] EXTERNAL | | | | performed at [facility];[address] | | LAB | | | | [address];[place], [place] | | | | | | [address] | | | | + + + [...] | | | | | performed at [facility];[address] | | | | | | [address];[place] | | | | | | [address] | | | | + + + [...] EXTERNAL | | | | performed at [facility];[address] | mmol/L | LAB | | | | [address];[place], [place] | | | | | | [address] | | | | + + + [...] EXTERNAL | | | | performed at [facility];888 | mmol/L | LAB | | | | Tanner Aly;[place] | | | | | | [address] | | | | + + + + + + | K | 4.4Comment: SPECIMEN | 3.5 - 4.9 | EXTERNAL | | | | SLIGHTLY | mmol/L | LAB | | | | HEMOLYZEDTesting | | | | | | performed at [facility];888 | | | | | | Tiera Santamaria;[place] | | | | | | [address] | | | | + + + + + + | Cl | 106Comment: Testing | 99 - 109 mmol/L | EXTERNAL | | | | performed at [facility];888 | | LAB | | | | Tannerlanny Santamaria;[place] | | | | | | [address] | | | | + + + + + + | CO2 | 24Comment: Testing | 23 - 32 mmol/L | EXTERNAL | | | | performed at [facility];888 | | LAB | | | | [address]anner Bl[address];[place] | | | | | | [address] | | | | + + + + + + | Anion Gap | 12Comment: Testing | 5 - 20 mmol/L | EXTERNAL | | | | performed at [facility];888 | | LAB | | | | [address] Bl[address];[place] | | | | | | [address] | | | | + + + + + + | Glucose, | 103 (H)Comment: Testing | 65 - 99 mg/dL | EXTERNAL | | | Fasting | performed at [facility];888 | | LAB | | | | [address] Bl[address];[place] | | | | | | [address] | | | | + + + + + + | BUN | 22Comment: Testing | 8 - 25 mg/dL | EXTERNAL | | | | performed at [facility];[address] | | LAB | | | | [address];[place] | | | | | | [address] | | | | + + + + + + | Creatinine | 1.9 (H)Comment: Testing | 0.50 - 1.00 | EXTERNAL | | | | performed at [facility];888 | mg/dL | LAB | | | | [address];[place] | | | | | | [address] | | | | + + + + + + | BUN/Creatin | 12Comment: Testing | | EXTERNAL | | | ine Ratio | performed at [facility];[address] | | LAB | | | | [address];[place] | | | | | | [address] | | | | + + + + + + | Calcium | 7.4 (L)Comment: Testing | 8.5 - 10.5 | EXTERNAL | | | | performed at [facility];888 | mg/dL | LAB | | | | [address];[place] | | | | | | [address] | | | | + + + + + + | Protein, | 6.5Comment: Testing | 6.3 - 8.2 g/dL | EXTERNAL | | | Total | performed at [facility];888 | | LAB | | | | [address];[place] | | | | | | [address] | | | | + + + + + + | Albumin | 2.2 (L)Comment: Testing | 3.3 - 4.8 g/dL | EXTERNAL | | | | performed at [facility];888 | | LAB | | | | [address];[place] | | | | | | [address] | | | | + + + + + + | Globulin | 4.4Comment: Testing | 1.3 - 4.9 g/dL | EXTERNAL | | | | performed at [facility];888 | | LAB | | | | [address];[place] | | | | | | [address] | | | | + + + + + + | A/G Ratio | 0.5 (L)Comment: Testing | 1.0 - 2.4 | EXTERNAL | | | | performed at [facility];[address] | | LAB | | | | [address];[place] | | | | | | [address] | | | | + + + + + + | Bilirubin | 0.5Comment: Testing | 0.1 - 1.5 mg/dL | EXTERNAL | | | Total | performed at [facility];[address] | | LAB | | | | [address];[place] | | | | | | [address] | | | | + + + + + + | ALP, | 148 (H)Comment: Testing | 35 - 115 U/L | EXTERNAL | | | External | performed at [facility];[address] | | LAB | | | | [address];[place] | | | | | | [address] | | | | + + + + + + | AST | 41Comment: SPECIMEN | 10 - 45 U/L | EXTERNAL | | | | SLIGHTLY | | LAB | | | | HEMOLYZEDTesting | | | | | | performed at [facility];[address] | | | | | | [address];[place] | | | | | | [address] | | | | + + + + + + | ALT | 23Comment: Testing | 10 - 65 U/L | EXTERNAL | | | | performed at [facility];888 | | LAB | | | | [address];[place] | | | | | | [address] | | | | + + + [...] | | | | | | at [facility];[address] | | | | | | [place] [address] | | | | + + + [...] WORKUP | | | Testing performed at [facility], [address] [place], [place] | | | [address] | | + + + + +---------+ [...] EXTERNAL | | | | performed at [facility], [address] | | LAB | | | | [place], | | | | | | [place] [address] | | | | + + + + + + | Clarity | CLOUDYComment: Testing | | EXTERNAL | | | | performed at [facility], [address] | | LAB | | | | [place] [address], | | | | | | [place] [address] | | | | + + + + + + | Specific | 1.015Comment: Testing | 1.002 - 1.030 | EXTERNAL | | | [place] | performed at [facility], [address] | | LAB | | | | [address], | | | | | | [place] [address] | | | | + + + + + + | Leukocyte | SMALL (A)Comment: | | EXTERNAL | | | Esterase, | Testing performed at | | LAB | | | Urine | [facility], [address] | | | | | | [place] | | | | | | [address] | | | | + + + + + + | Nitrite, | NEGATIVEComment: Testing | | EXTERNAL | | | Urine | performed at [facility], [address] | | LAB | | | | [address], | | | | | | [place] [address] | | | | + + + + + + | Urobilinoge | 0.2Comment: Testing | mg/dL | EXTERNAL | | | n, Urine | performed at [facility], [address] | | LAB | | | | [address], | | | | | | [place] [address] | | | | + + + + + + | Protein, | 100 (A)Comment: Testing | mg/dL | EXTERNAL | | | Urine | performed at [facility], [address] | | LAB | | | | [place], | | | | | | [place] [address] | | | | + + + + + + | pH, Urine | 6.5Comment: Testing | 5.0 - 8.0 | EXTERNAL | | | | performed at [facility], [address] | | LAB | | | | [place] [address], | | | | | | [place] [address] | | | | + + + + + + | Blood, | MODERATE (A)Comment: | | EXTERNAL | | | Urine | Testing performed at | | LAB | | | | [facility], [address] | | | | | | [place] | | | | | | [address] | | | | + + + + + + | Ketones | NEGATIVEComment: Testing | mg/dL | EXTERNAL | | | | performed at [facility], [address] | | LAB | | | | [address], | | | | | | [place] [address] | | | | + + + + + + | Bilirubin, | NEGATIVEComment: Testing | | EXTERNAL | | | Urine | performed at [facility], [address] | | LAB | | | | [address], | | | | | | [place] [address] | | | | + + + + + + | Glucose, | NEGATIVEComment: Testing | mg/dL | EXTERNAL | | | Urine | performed at [facility], [address] | | LAB | | | | [address], | | | | | | [place] [address] | | | | + + + [...] | | | | | [place] [address] | | | | + + + + + + | RBC, UA | 1-5Comment: Testing | 0 - 5 /hpf | EXTERNAL | | | | performed at [facility], [address] | | LAB | | | | [address], | | | | | | [place] [address] | | | | + + + + + + | Epithelial | 0-2Comment: Testing | /lpf | EXTERNAL | | | Cells | performed at [facility], [address] | | LAB | | | | [address], | | | | | | [place] [address] | | | | + + + + + + | Bacteria, | TRACE (A)Comment: | | EXTERNAL | | | UA | Testing performed at | | LAB | | | | [facility], [address] | | | | | | [place] | | | | | | [address] | | | | + + + + + + | Urinalysis | CULTURE TO | | EXTERNAL | | | Comments | FOLLOWComment: Testing | | LAB | | | | performed at [facility], [address] | | | | | | [place], | | | | | | [place] [address] | | | | + + + [...] EXTERNAL | | | | performed at [facility];888 | mg/dL | LAB | | | | [address];[place] | | | | | | [address] | | | | + + + [...] LAB | | C.diffAbnormal Testing performed at [facility];[address] [place] [address] | | | [phone] NAP1 BI 027 NAP1 BI | | | PRESUMPTIVE NEGATIVE Detection of 027 NAP1 BI strains of C. difficile | | | is presumptive and for epidemiological purposes and not intended to | | | guide or monitor treatment for C. difficile infections. Testing | | | performed at [facility];[address] [place] [address];[place] [address] | | + + + + +---------+ [...] EXTERNAL | | | | performed at [facility];888 | mmol/L | LAB | | | | [address];[place], [place] | | | | | | [address] | | | | + + + [...] | | | | | | at [facility];[address] | | | | | | [facility];[place] [address] | | | | + + + [...] EXTERNAL | | | | performed at [facility];[address] | | LAB | | | | [address];[place], [place] | | | | | | [address] | | | | + + + [...] | | | | | | ACUTE [place] Testing | | | | | | performed at [facility];[address] | | | | | | [facility];[place], [place] | | | | | | [address] | | | | + + + [...] K/uL | LAB | | | | [facility];[address] | | | | | | [place] [address] | | | | + + + + + + | RED CELL | 3.66 (L)Comment: Testing | 3.70 - 5.10 | EXTERNAL | | | COUNT | performed at [facility];[address] | M/uL | LAB | | | | [address];[place] | | | | | | [address] | | | | + + + + + + | Hgb | 12.6Comment: Testing | 11.3 - 15.5 | EXTERNAL | | | | performed at [facility];888 | g/dL | LAB | | | | [address];[place] | | | | | | [address] | | | | + + + + + + | Hematocrit, | 38.9Comment: Testing | 34.0 - 46.0 % | EXTERNAL | | | POC | performed at [facility];[address] | | LAB | | | | [address];[place] | | | | | | [address] | | | | + + + + + + | MCV | 106.3 (H)Comment: | 80.0 - 100.0 fl | EXTERNAL | | | | Testing performed at | | LAB | | | | [facility];[address] | | | | | | [address];[place] [address] | | | | + + + + + + | MCH | 34.3 (H)Comment: Testing | 27.0 - 34.0 pg | EXTERNAL | | | | performed at [facility];[address] | | LAB | | | | [address];[place] | | | | | | [address] | | | | + + + + + + | MCHC | 32.3Comment: Testing | 32.0 - 35.5 | EXTERNAL | | | | performed at [facility];888 | g/dL | LAB | | | | [address];[place] | | | | | | [address] | | | | + + + + + + | RDW-CV | 54.7 (H)Comment: Testing | 37 - 53 fl | EXTERNAL | | | | performed at [facility];[address] | | LAB | | | | [address];[place] | | | | | | [address] | | | | + + + + + + | Platelet | 167Comment: Testing | 150 - 400 K/uL | EXTERNAL | | | Count | performed at [facility];[address] | | LAB | | | Plasma | [address];[place] | | | | | | [address] | | | | + + + + + + | MPV | 10.6Comment: Testing | fl | EXTERNAL | | | | performed at [facility];[address] | | LAB | | | | [address];[place] | | | | | | [address] | | | | + + + + + + | Differentia | MANUALComment: Testing | | EXTERNAL | | | l Type | performed at [facility];[address] | | LAB | | | | [address];[place] | | | | | | [address] | | | | + + + + + + | Segmented | 54Comment: Testing | % | EXTERNAL | | | Neutrophils | performed at [facility];[address] | | LAB | | | Manual | [address];[place] | | | | | | [address] | | | | + + + + + + | % Bands | 18Comment: Testing | % | EXTERNAL | | | | performed at [facility];[address] | | LAB | | | | [address];[place] | | | | | | [address] | | | | + + + + + + | Lymphocytes | 16Comment: Testing | % | EXTERNAL | | | Manual | performed at [facility];[address] | | LAB | | | | [address];[place] | | | | | | [address] | | | | + + + + + + | Monocytes | 12Comment: Testing | % | EXTERNAL | | | Manual | performed at [facility];[address] | | LAB | | | | [address];[place] | | | | | | [address] | | | | + + + + + + | Absolute | 10.69 (H)Comment: | 1.90 - 7.40 | EXTERNAL | | | Neutrophils | Testing performed at | K/uL | LAB | | | | [facility];[address] | | | | [address];[place] [address] | | | | + + + + + + | Bands | 3.56 (H)Comment: Testing | 0.00 - 0.20 | EXTERNAL | | | Manual | performed at [facility];[address] | K/uL | LAB | | | | [address];[place] | | | | | | [address] | | | | + + + + + + | Absolute | 3.16Comment: Testing | 1.00 - 3.90 | EXTERNAL | | | Lymphocytes | performed at [facility];[address] | K/uL | LAB | | | | [address];[place] | | | | | | [address] | | | | + + + + + + | Absolute | 2.37 (H)Comment: Testing | 0.00 - 0.80 | EXTERNAL | | | Monocytes | performed at [facility];[address] | K/uL | LAB | | | | [address];[place] | | | | | | [address] | | | | + + + + + + | Platelet | ADEQUATEComment: Testing | | EXTERNAL | | | Estimate | performed at [facility];[address] | | LAB | | | | [address];[place] | | | | | | [address] | | | | + + + + + + | RBC | NORMAL PLT MORPHComment: | | EXTERNAL | | | Morphology | 1+ANISOTesting | | LAB | | | | performed at [facility];[address] | | | | | | [address];[place] | | | | | | [address] | | | | | | | [...] EXTERNAL | | | | performed at [facility];[address] | uIU/mL | LAB | | | | [address];[place], [place] | | | | | | [address] | | | | + + + [...] EXTERNAL | | | | performed at [facility];[address] | | LAB | | | | [address];[place], [place] | | | | | | [address] | | | | + + + [...] | | LAB | | | | [facility];[address] | | | | | | [address];[place] [address] | | | | + + + [...] EXTERNAL | | | | performed at [facility];[address] | | LAB | | | | [address];[place], [place] | | | | | | [address] | | | | + + + [...] EXTERNAL | | | | performed at [facility];[address] | | LAB | | | | [address];[place] | | | | | | [address] | | | | + + + [...] EXTERNAL | | | | performed at [facility];888 | mmol/L | LAB | | | | [address];[place] | | | | | | [address] | | | | + + + + + + | K | 3.4 (L)Comment: Testing | 3.5 - 4.9 | EXTERNAL | | | | performed at [facility];888 | mmol/L | LAB | | | | [address];[place] | | | | | | [address] | | | | + + + + + + | Cl | 101Comment: Testing | 99 - 109 mmol/L | EXTERNAL | | | | performed at [facility];[address] | | LAB | | | | [address];[place] | | | | | | [address] | | | | + + + + + + | CO2 | 27Comment: Testing | 23 - 32 mmol/L | EXTERNAL | | | | performed at [facility];[address] | | LAB | | | | [address];[place] | | | | | | [address] | | | | + + + + + + | Anion Gap | 12Comment: Testing | 5 - 20 mmol/L | EXTERNAL | | | | performed at [facility];[address] | | LAB | | | | [address];[place] | | | | | | [address] | | | | + + + + + + | Glucose, | 106 (H)Comment: Testing | 65 - 99 mg/dL | EXTERNAL | | | Fasting | performed at [facility];[address] | | LAB | | | | [address];[place] | | | | | | [address] | | | | + + + + + + | BUN | 18Comment: Testing | 8 - 25 mg/dL | EXTERNAL | | | | performed at [facility];[address] | | LAB | | | | [address];[place] | | | | | | [address] | | | | + + + + + + | Creatinine | 1.3 (H)Comment: Testing | 0.50 - 1.00 | EXTERNAL | | | | performed at [facility];888 | mg/dL | LAB | | | | [address];[place] | | | | | | [address] | | | | + + + + + + | BUN/Creatin | 14Comment: Testing | | EXTERNAL | | | ine Ratio | performed at [facility];[address] | | LAB | | | | [address];[place] | | | | | | [address] | | | | + + + + + + | Calcium | 7.3 (L)Comment: Testing | 8.5 - 10.5 | EXTERNAL | | | | performed at [facility];888 | mg/dL | LAB | | | | [address];[place] | | | | | | [address] | | | | + + + + + + | Protein, | 7.9Comment: Testing | 6.3 - 8.2 g/dL | EXTERNAL | | | Total | performed at [facility];[address] | | LAB | | | | [address];[place] | | | | | | [address] | | | | + + + + + + | Albumin | 2.5 (L)Comment: Testing | 3.3 - 4.8 g/dL | EXTERNAL | | | | performed at [facility];[address] | | LAB | | | | [address];[place] | | | | | | [address] | | | | + + + + + + | Globulin | 5.4 (H)Comment: Testing | 1.3 - 4.9 g/dL | EXTERNAL | | | | performed at [facility];[address] | | LAB | | | | [address];[place] | | | | | | [address] | | | | + + + + + + | A/G Ratio | 0.5 (L)Comment: Testing | 1.0 - 2.4 | EXTERNAL | | | | performed at [facility];[address] | | LAB | | | | [address];[place] | | | | | | [address] | | | | + + + + + + | Bilirubin | 0.6Comment: Testing | 0.1 - 1.5 mg/dL | EXTERNAL | | | Total | performed at [facility];[address] | | LAB | | | | [address];[place] | | | | | | [address] | | | | + + + + + + | ALP, | 188 (H)Comment: Testing | 35 - 115 U/L | EXTERNAL | | | External | performed at [facility];[address] | | LAB | | | | [address];[place] | | | | | | [address] | | | | + + + + + + | AST | 51 (H)Comment: Testing | 10 - 45 U/L | EXTERNAL | | | | performed at [facility];[address] | | LAB | | | | [address];[place] | | | | | | [address] | | | | + + + + + + | ALT | 30Comment: Testing | 10 - 65 U/L | EXTERNAL | | | | performed at [facility];[address] | | LAB | | | | [address];[place] | | | | | | [address] | | | | + + + [...] | | | | | | at [facility];[address] | [address];[place] [address] | | | | + + + [...] Conversion - 01/05/2019 4:32 AM PDT COLE [id number] yearsXR | | CHEST 1 VIEW01/28/2015 2:40 [...]
--- OUTSIDE RECORDS SUMMARY | ~2019-05-09 | XMS | Encounter Summary ---
Demographics + + + | Address | [address] | | | [place] [address] | + + + | Home Phone | | + + + | Preferred Language | Unknown | + + + | Marital Status | Single | + + + | Church Affiliation | 1041 | + + + | Race | Unknown | + + + | Ethnic Group | Unknown | + + + Author + + + | Author | [facility] | | | and [place] | + + + | Organization | [facility] | | [...] Team Providers + +------+ + | Care Transportation Museum Helper Name | Role | Phone | + +------+ + | Rick Osorio DO | PCP | | + +------+ + Encounter Details +--------+ + + + + | Date | Type | Department | Care Team | Description | +--------+ + + + + | 06/04/ | Orders Only | [facility] | Emil Oliva MD | | | 2013 | | NEPHROLOGY [place] | [address] | | | | | [address] | [address] [place], [place] | | | | | [address] [place], [place] | [address] | | | | | [address] | | | | | | [phone] | | | +--------+ + + + [...] | | | LAB | | | SER[facility] | | | | | + +-------+ [...]
--- OUTSIDE RECORDS SUMMARY | ~2019-05-09 | XMS | Encounter Summary ---
Demographics + + + | Address | [address] | | | [place] [address] | + + + | Home Phone [...] Team Providers + +------+ + | Care Biomass Boiler Operator Name | Role | Phone | [...] | Dx); Kyphosis | | | | [place], | [place], [place] | deformity of spine; | | | | [place] [address] | [address] | Restrictive lung | | | | [phone] | | disease | +--------+---------+ + + [...] + | MISCELLANEOUS LAB | | | [phone] | + +---------+ + + | MISCELANIOUS LAB | | | [phone] | + +---------+ + + documented in this encounter Visit Diagnoses + + | Diagnosis | + + | Hypoxemia - Primary | + + | 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
--- OUTSIDE RECORDS SUMMARY | ~2019-05-09 | XMS | Encounter Summary ---
Demographics + + + | Address | [address] | | | [place] [address] | + + + | Home Phone | | + + + | Preferred Language | Unknown | + + + | Marital Status | Unknown | + + + | Hoahaoism Affiliation | Unknown | + + + | Race | Unknown | + + + | Ethnic Group | Unknown | + + + Author + + + | Author | [facility] | + + + | Organization | [facility] | + + + | Address | Unknown | + + + | Phone | Unavailable | + + + Care Team Providers + +------+ + | Care Crusher Loader Operator Name | Role | Phone | [...] | | | | | [address] [place], | [place], [place] | | | | | [place] [address] | [address] | | | | | [phone] | | | +--------+ + + + [...]
--- OUTSIDE RECORDS SUMMARY | ~2019-05-09 | XMS | Encounter Summary ---
Demographics + + + | Address | [address] | | | [place] [address] | + + + | Home Phone | | + + + | Preferred Language | Unknown | + + + | Marital Status | Single | + + + | Methodist Affiliation | 1041 | + + + | Race | Unknown | + + + | Ethnic Group | Unknown | + + + Author + + + | Author | [facility] | | | and [place] | + + + | Organization | [facility] | | [...] Providers + +------+ + | Care Supervisor Dumping Name | Role | Phone | + [...] | Office | [facility] | Gary Melendez, | Restrictive lung | | 2013 | Visit | PULMONARY [address] | MD [address] | disease (Primary | | | | [place], | [place], [place] | Dx); Hypoxemia; | | | | [place] [address] | [address] | Kyphosis deformity | | | | [phone] | | of spine | +--------+---------+ + [...] techniques, exercise, and stress management. In some [facility], a lung transplant is an option. Your healthcare team may include: A primary care provider,such as your family doctor. A collar feller,a specialist in lung problems. A pulmonary nurse specialistwho helps you understand and carry out your treatment. A pulmonary rehabilitation specialistwho helps you gain strength through exercise. A social workerwho helps with your daily needs, family life, and stress. [id number] [employer]. [address] [place] [address]. All righ ts reserved. This information is not intended as a substitute for professional medical care. Always follow your healthcare professional's instructions. documented in this encounter Progress Notes Gary Melendez MD - 05/10/2014 2:10 PM PSTFormatting of this note might be different f rom the original. Pulmonary Clinic Follow Up 05/10/2014 HPI pOal Petty is a 68 y.o. female patient [...]
--- OUTSIDE RECORDS SUMMARY | ~2019-05-09 | XMS | Encounter Summary ---
Demographics + + + | Address | [address] | | | [place] [address] | + + + | Home Phone [...] + + + | Author | [facility] | | | and [place] | + + + | Organization | [facility] | | [...] Providers + +------+ + | Care Senior Living Advisor Name | Role | Phone | + +------+ + | Rick Osorio DO | PCP | | + +------+ + Encounter Details +--------+ + + + + | Date | Type | Department | Care Team | Description | +--------+ + + + + | 11/15/ | Orders Only | [facility] | Emil Oliva MD | | | 2014 | | NEPRHOLOGY [place] | [address] [facility] | | | | | [address] | [address] [place], [place] | | | | | [address] [place], [place] | [address] | | | | | [address] | | | | | | [phone] | | | +--------+ + + + [...]
--- OUTSIDE RECORDS SUMMARY | ~2019-05-09 | XMS | Encounter Summary ---
Demographics + + + | Address | [address] | | | [place] [address] | + + + | Home Phone | | + + + | Preferred Language | Unknown | + + + | Marital Status | Unknown | + + + | Sikhism Affiliation | Unknown | + + + [...] Team Providers + +------+ + | Care Document Control Manager Name | Role | Phone | [...] | | | | | [address] [place], | [place], [place] | | | | | [place] [address] | [address] | | | | | [phone] | | | +--------+ + + + [...]
--- OUTSIDE RECORDS SUMMARY | ~2019-05-09 | XMS | Encounter Summary ---
Demographics + + + | Address | [address] | | | [place] [address] | + + + | Home Phone | | + + + | Preferred Language | Unknown | + + + | Marital Status | Single | + + + | Pentecostalism Affiliation | 1041 | + + + | Race | Unknown | + + + | Ethnic Group | Unknown | + + + Author + + + | Author | [facility] | | | and [place] | + + + | Organization | [facility] | | | and [place] | + + + | Address | Unknown | + + + | Phone | Unavailable | + + + Support + + +---------+ + | Name | Relationship | Address | Phone | + + +---------+ + | nAnie Tipton | ECON | Unknown | | + + +---------+ + Care Team Providers + +------+ + | Care Jira Developer Name | Role | Phone | [...] + + | 03/26/ | Office | [facility] | Gary Melendez, | Hypoxemia (Primary | | 2014 | Visit | [address]ULMONARY [address] | MD [address] | Dx); Kyphosis | | | | [place], | [place], [place] | deformity of spine; | | | | [place] [address] | [address] | Restrictive lung | | | | [phone] | | disease | +--------+---------+ + + [...] + | MISCELLANEOUS LAB | | | [phone] | + +---------+ + + | MISCELANIOUS LAB | | | [phone] | + +---------+ + + documented in this encounter Visit Diagnoses + + | Diagnosis | + + | Hypoxemia - Primary | + + | 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
--- OUTSIDE RECORDS SUMMARY | ~2019-05-09 | XMS | Encounter Summary ---
Demographics + + + | Address | [address] | | | [place] [address] | + + + | Home Phone | | + + + | Preferred Language | Unknown | + + + | Marital Status | Unknown | + + + | Hinduism Affiliation | Unknown | + + + | Race | Unknown | + + + | Ethnic Group | Unknown | + + + Author + + + | Author | [facility] | + + + | Organization | [facility] | + + + | Address | Unknown | + + + | Phone | Unavailable | + + + Care Team Providers + +------+ + | Care Selling Underwriter Name | Role | Phone | + [...] | | | | | [address] [place], | [place], [place] | | | | | [place] [address] | [address] | | | | | [phone] | | | +--------+ + + + [...]
--- OUTSIDE RECORDS SUMMARY | ~2019-05-09 | XMS | Encounter Summary ---
Demographics + + + | Address | [address] | | | [place] [address] | + + + | Home Phone | | + + + | Preferred Language | Unknown | + + + | Marital Status | Single | + + + | Judaism Affiliation | 1041 | + + + | Race | Unknown | + + + | Ethnic Group | Unknown | + + + Author + + + | Author | [facility] | | | and [place] | + + + | Organization | [facility] | | | [...] Team Providers + +------+ + | Care Drafter (Cad) Electronic Name | Role | Phone | + +------+ + | Yovani Santana MD | PCP | | + +------+ + Encounter Details +--------+ + + + + | Date | Type | Department | Care Team | Description | +--------+ + + + + | 01/28/ | Hospital | [facility] | Jacob Smith, | | | 2014 - | Encounter | [facility] | MD Carmelo SANTAMARIA | | | | | CARE FLOOR [address] | [place] [address] | | | 02/03/ | | TIERA SANTAMARIA | [phone] | | | 2014 | | [place], [place] | | | | | | [address] | | | | | | [phone] | | | +--------+ + + + [...] Date of Service: 02/03/15 1029 Status: Signed Interventional Physiatrist: Jose Maria Espinal MD (Physician) Related Notes: Original Note by Jose Maria Espinal MD (Physician) filed at 02/04/15 1345 [facility] Service: Hospitalist Physician Discharge Summary [...] 2-4 lpm, Presented as a transfer from [facility] in [place] for fever of 101 and altered mental s tatus. She was discharged from [facility] on 01/09/15 for elevated troponin and [...] antibiotics. She was brought back in to [facility] for fever and confusion. UA and CXR reportedly negative there. SBP was 90s. She had formed stool there but en route here she did develop watery stool, tested C diff + here.".......per admitting MD/Dr. Smith . The patient was admitted to [facility] with a diagnosis of Clostridium difficile infection while she was being transferred from [facility] with fever and altered mental status. Th e patient has underlying immunosuppression secondary to a remote history of liver transplant on chronic immunosuppressive therapy with azathioprine and cyclosporin. Following her trans fletcher to [facility], she was started on oral vancomycin [...] medically stable for discharge to return to [facility] in [place] on Jan. ADDITIONAL ISSUES 1. Recurrent atelectasis. [...] long-term facility where the patient resides in [facility] to check anothe r magnesium level [...] Procedure: COLONOSCOPY; Surgeon: Juan Ramey MD; Location: [facility] ENDOSCOPY; Service: Gastroenterology; Laterality: N/A; Discharged [...] Follow up: Ki De Jesus DO [address] [facility] [address] [place] [address] Schedule an appointment as soon as possible [...] to Get Your Medications You need to picker these prescriptions. We sent some of them to a specific pharmacy. Go t o these places to get your medications. [facility] - [place], [place] - [address] - lactobacillus granules [address] [place] [address] You may get the following medications from [...] 02/03/151608 Date of Service: 02/03/151608 Status: Signed Interventional Physiatrist: Pedro Partida RN (Registered Nurse) 02/03/151602 Discharge Planning Evaluation Admitting Diagnosis Elevated temp, CKD, post liver transplant Readmission Yes-within 14 days Reason for readmission Fever, confusion, C.dif Last discharge disposition [facility] Needs met at last discharge Yes Picked up discharge Rx medications Yes Started prescribed DC meds Yes Understood discharge instructions Yes Assistance available Yes Concerns for meeting needs No Caregiver after Discharge Yes Mental Status Oriented Anticipated Disposition Facility Type [facility] facility [facility] Other (comment) ([facility] in [place]) Disposition: Return to [facility] Transportation: Facility van to transport. All [...] 02/03/15899 Date of Service: 02/02/151521 Status: Signed Interventional Physiatrist: Jose Maria Espinal MD (Physician) Related Notes: Original Note by Jose Maria Espinal MD (Physician) filed at 02/02/15 1950 [facility] Service: Hospitalist Progress Note Pt: Cole Ernst AGE/SEX: 69 y.o. female : 1945 ROOM: [facility] History of Present Illness: " The patient is a 69 y.o. female with significant past medical history of liver transplant int he 90s on cyclosporine and imuran, chronic pain on methadone, CKD st 3, chronic home O2 of unclear etiology from 2-4 lp, Presented as a transfer from [facility] in [place] for fever of 101 and altered mental s tatus. She was discharged from [facility] on 01/09/15 for elevated troponin and [...] antibiotics. She was brought back in to [facility] for fever and confusion. UA and [...] [facility] [place] [facility] patient in the next [...] contrast. Prior study for comparison: None FINDINGS: Insurance Law Specialist 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 deg enerative changes of [...] LA/Ao: 1.57 D-E Excursion: 2.11 cm E-F [place]: 0.09 m/s EPSS: 0.48 cm HR: 77.41 [...] TV A Billy: 0.66 m/s TV Dec [place]: 4.36 m/s2 TV Dec Time: 184.41 ms TV E Billy: 0.80 m/s TV E/A Rat io: 1.21 Stretching Press Operator: NEDRA Authenticated by: Gil Martines MD Report [...] Procedure: COLONOSCOPY; Surgeon: Juan Ramey MD; Location: [facility] ENDOSCOPY; Service: Gastroenterology; Laterality: N/A; PROBLEM [...] by Jose Maria Espinal MD at 02/01/15 8191 Author: Jose Maria Espinal MD Service: Hospitalist Author Type: Physician Filed: 02/02/15 1526 Date of Service: 02/01/151716 Status: Signed Interventional Physiatrist: Jose Maria Espinal MD (Physician) Related Notes: Original Note by Jose Maria Espinal MD (Physician) filed at 02/02/15 1307 [facility] Service: Hospitalist Progress Note Pt: Cole Ernst AGE/SEX: 69 y.o. female : 1945 ROOM: [address] [place] [address] History of Present Illness: " The patient is a 69 y.o. female with significant past medical history of liver transplant int he 90s on cyclosporine and imuran, chronic pain on methadone, CKD st 3, chronic home O2 of unclear etiology from 2-4 lpm, Presented as a transfer from [facility] for fever of 101 and altered mental s tatus. She was discharged from [facility] on 01/09/15 for elevated troponin and [...] antibiotics. She was brought back in to [facility] for fever and confusion. UA and [...] establishing readiness of the faci lity in [place] to accept the patient in the next [...] contrast. Prior study for comparison: None FINDINGS: Insurance Law Specialist 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 deg enerative changes of [...] LA/Ao: 1.57 D-E Excursion: 2.11 cm E-F [place]: 0.09 m/s EPSS: 0.48 cm HR: 77.41 [...] TV A Billy: 0.66 m/s TV Dec [place]: 4.36 m/s2 TV Dec Time: 184.41 ms TV E Billy: 0.80 m/s TV E/A Rat io: 1.21 Stretching Press Operator: NEDRA Authenticated by: Gil Martines MD Report [...] Procedure: COLONOSCOPY; Surgeon: Juan Ramey MD; Location: [facility] ENDOSCOPY; Service: Gastroenterology; Laterality: N/A; PROBLEM [...] Currently with normal liver function tests. 3. Yuvmh-xu-sxacqqt liver disease, stage III. Creatinine level has [...] 01/31/152124 Date of Service: 01/31/151513 Status: Signed Interventional Physiatrist: Jose Maria Espinal MD (Physician) Related Notes: Original Note by Jose Maria Espinal MD (Physician) filed at 01/31/15 1523 [facility] Service: Hospitalist Progress Note Pt: Cole Ernst AGE/SEX: 69 y.o. female : 1945 ROOM: [address] [place] [address] History of Present Illness: " The patient is a 69 y.o. female with significant past medical history of liver transplant int he 90s on cyclosporine and imuran, chronic pain on methadone, CKD st 3, chronic home O2 of unclear etiology from 2-4 lpm, Presented as a transfer from [facility] in [place] for fever of 101 and altered mental s tatus. She was discharged from [facility] on 01/09/15 for elevated troponin and [...] antibiotics. She was brought back in to [facility] for fever and confusion. UA and [...] contrast. Prior study for comparison: None FINDINGS: Insurance Law Specialist 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 deg enerative changes of [...] LA/Ao: 1.57 D-E Excursion: 2.11 cm E-F [place]: 0.09 m/s EPSS: 0.48 cm HR: 77.41 [...] mmHg TR Vmax: 2.65 m/s TV A Blily: 0.66 m/s TV Dec [place]: 4.36 m/s2 TV Dec Time: 184.41 ms TV E Billy: 0.80 m/s TV E/A Rat io: 1.21 Stretching Press Operator: NEDRA Authenticated by: Gil Martines MD Report [...] Procedure: COLONOSCOPY; Surgeon: Juan Ramey MD; Location: [facility] ENDOSCOPY; Service: Gastroenterology; Laterality: N/A; PROBLEM [...] DVT prophylaxis. SCDs and subcutaneous heparin. Jose aMria Espinal MD 01/31/2015 3:15 PM onversion Transa ction, Provider Unknown - 01/31/2015 1:13 PM PDT Progress Notes by Catina Moon at 01/31/15 1313 Author: Catina Moon Service: (none) Author Type: Filed: 01/31/15 1313 Date of Service: 01/31/151312 Status: Signed Interventional Physiatrist: Catina Moon () Attempted visit. Pt sitting in chair sleeping. No family present. Chaplain Catina Moon onver alessandro Transaction, Provider Unknown - 01/31/2015 11:35 AM PDT Therapy Progress Note by Mahi Yanes PTA at 01/31/15 1135 Author: Mahi Yanes PTA Service: (none) Author Type: Teacher Of The Deaf/Hard Of Hearing Filed: 01/31/15 1410 Date of Service: 01/31/151134 Status: Signed Interventional Physiatrist: Mahi Yanes PTA (Teacher Of The Deaf/Hard Of Hearing) 01/31/15 1135 PT Last Visit PT Received [...] PDT Case Management by Gregg Keene MS, ACADEMY DIRECTOR at 01/31/15 1007 Author: Gregg Keene, MS, ACADEMY DIRECTOR Service: (none) Author Type: Para Machine Operator Filed: 01/31/15 1546 Date of Service: 01/31/15 1007 Status: Addendum Interventional Physiatrist: Gregg Keene , ACADEMY DIRECTOR (Para Machine Operator) Related Notes: Original Note by Gregg Yecenia MS, ACADEMY DIRECTOR (Para Machine Operator) filed at 01/31/15 1007 Discharge planning - CM faxed updated clinical to Gi at [facility]. Discharge form s on front of chart for MD signature. CM notified Gi of anticipated d/c this weekend. onver alessandro Transaction, Provider Unknown - 01/30/2015 5:05 PM PDT Therapy Progress Note by Gail Vernon PT at 01/30/15 1705 Author: Gail Vernon PT Service: (none) Author Type: Physical Therapist Filed: 01/30/15 5535 Date of Service: 01/30/15 1705 Status: Signed Interventional Physiatrist: Gail Vernon PT (Physical Therapist) 01/30/15 170 [...] Date of Service: 01/30/15 1414 Status: Signed Interventional Physiatrist: Jose Maria Espinal MD (Physician) Related Notes: Original Note by Jose Maria Espinal MD (Physician) filed at 01/30/15 3238 [facility] Service: Hospitalist Progress Note Pt: [...] 2-4 lpm, Presented as a transfer from [facility] in [place] for fever of 101 and altered mental s tatus. She was discharged from [facility] on 01/09/15 for elevated troponin and [...] antibiotics. She was brought back in to [facility] for fever and confusion. UA and [...] contrast. Prior study for comparison: None FINDINGS: Insurance Law Specialist 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 deg enerative changes of [...] LA/Ao: 1.57 D-E Excursion: 2.11 cm E-F [place]: 0.09 m/s EPSS: 0.48 cm HR: 77.41 [...] TV A Billy: 0.66 m/s TV Dec [place]: 4.36 m/s2 TV Dec Time: 184.41 ms TV E Billy: 0.80 m/s TV E/A Rat io: 1.21 Stretching Press Operator: NEDRA Authenticated by: Gil Martines MD Report [...] Procedure: COLONOSCOPY; Surgeon: Juan Ramey MD; Location: [facility] ENDOSCOPY; Service: Gastroenterology; Laterality: N/A; PROBLEM [...] Patient's live r functions remain normal. 3. Nxyfj-gd-kocizda kidney disease stage III. Creatinine level has [...] by Jose Maria Espinal MD at 01/29/15 401 Author: Jose Maria Espinal MD Service: Hospitalist Author Type: Physician Filed: 01/30/15 0957 Date of Service: 01/29/151650 Status: Signed Interventional Physiatrist: Jose Maria Espinal MD (Physician) Related Notes: Original Note by Jose Maria Espinal MD (Physician) filed at 01/29/152024 [facility] Service: Hospitalist Progress Note Pt: Cole Ernst AGE/SEX: 69 y.o. female : 1945 ROOM: [address] [place] [address] History of Present Illness: " The patient is a 69 y.o. female with significant past medical history of liver transplant int he 90s on cyclosporine and imuran, chronic pain on methadone, CKD st 3, chronic home O2 of unclear etiology from 2-4 lpm, Presented as a transfer from [facility] in [place] for fever of 101 and altered mental s tatus. She was discharged from [facility] on 01/09/15 for elevated troponin and [...] antibiotics. She was brought back in to [facility] for fever and confusion. UA and [...] contrast. Prior study for comparison: None FINDINGS: Insurance Law Specialist 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 deg enerative changes of [...] LA/Ao: 1.57 D-E Excursion: 2.11 cm E-F [place]: 0.09 m/s EPSS: 0.48 cm HR: 77.41 [...] TV A Billy: 0.66 m/s TV Dec [place]: 4.36 m/s2 TV Dec Time: 184.41 ms TV E Billy: 0.80 m/s TV E/A Rat io: 1.21 Stretching Press Operator: NEDRA Authenticated by: Gil Martines MD Report [...] Procedure: COLONOSCOPY; Surgeon: Juan Ramey MD; Location: [facility] ENDOSCOPY; Service: Gastroenterology; Laterality: N/A; PROBLEM [...] Date of Service: 01/29/15 1525 Status: Signed Interventional Physiatrist: Pedro Partida RN (Registered Nurse) 01/29/15 1521 Discharge Planning Evaluation Admitting Diagnosis Intestinal infection C.dif. Readmission Yes-within 14 days Reason for readmission Intestinal infection C.dif Last discharge disposition [facility] Needs met at last discharge Yes Picked up discharge Rx medications Not applicable Followed up with primary or specialty provider Yes Understood discharge instructions Yes Assistance available Yes Living Arrangements Alone Support Systems Friends/neighbors Type of Residence Private residence House type Apartment Independent with ADL's Yes Independent with Mobility Yes Caregiver after Discharge Yes Mental Status Oriented Anticipated Disposition Facility Type [facility] facility [facility] Facility Other (comment) ([facility] in [place]) Met with: patient and discussed discharge planning, Pt is a 69 y.o., female who was discharged from [facility] 2 wee ks ago to [facility]. Her sister, Renée Tipton is emergency contact, . Patient's PCP is: KI DE JESUS Patient's insurance: Medicare Coverage concerns: Medication coverage/concerns: Community resources utilized / needed: Assistance in transportation: Identification of any specific education / training: Barriers to Discharge / Alternative housing needed: Anticipated DCP: Return to [facility] PEDRO PARTIDA RN onver alessandro Nicole Provider Unknown - 01/29/2015 8:55 AM PDT Therapy Progress Note by Barbara Edmond PT at 01/29/15 0855 Author: Barbara Edmond PT Service: (none) Author Type: Physical Therapist Filed: 01/29/1533 Date of Service: 01/29/15854 Status: Signed Interventional Physiatrist: Barbara Edmond PT (Physical Therapist) 01/29/15 08 [...] to SNF after current hospital stay. Just NAILING MACHINE OPERATOR Júnior ADL's and Júnior mobility using 4ww for short room distances, had been using manual w/c in hallway at SNF. Reports a few falls at facility ov er last week, otherwise denies falls over last 6mos. Was getting therapies at facility. Prior Function Level of [place] Modified independent with ADLs;Modified independent with functional [...] Barriers to Discharge Physical Deficits Impacting Functional [place];Self-care Deficit s Impacting Functional [place];Equipment Needs (see comment);Pain Recommendation Comments Needs return [...] Barriers to Discharge Physical Deficits Impacting Functional [place];Self-care Deficit s Impacting Functional [place];Equipment Needs (see comment);Pain Recommendation Comments Needs return [...] 01/29/15831 Date of Service: 01/29/15830 Status: Signed Interventional Physiatrist: Malick Ramos RN (Registered Nurse) Infection Prevention Note: Patient stool is positive for C. Diff. Contact Enteric Precautions are required until furt her notice. Thank you. Malick Ramos RN, BA, Pig Furnace Operator onver alessandro Transaction, Provider Unknown - 01/28/2015 3:23 PM PDT Progress Notes by Jimena Duarte RPH at 01/28/151522 Author: Jimena Duarte RPH Service: (none) Author Type: Pharmacist Filed: 01/28/15 152 Date of Service: 01/28/151522 Status: Signed Interventional Physiatrist: Jimena Duarte RPH (Pharmacist) Zosyn Extended Infusion Initial Consult-Per Dr. Jacob Ernst 69 y.o. female CrCl cannot be calculated (Unknown ideal weight.). NEUTROPHILS ABS Date Value Ref Range Status 01/18/2015 3.26 1.90 - 7.40 K/uL Final Comment: Testing performed at [facility], [address] [place] [address] CREATININE Date Value Ref Range Status 01/19/2015 0.96 0.50 - 1.00 mg/dL Final Comment: Testing performed at [facility], [address] [place] [id number] Zosyn extended Infusion loading and maintenance dose guidelines Loading Dose 4.5 g IV Over 30 minutes CrCl >20 ml/min 3.375 g IV Q 8 hours Over 4 hours CrCl 10-20 ml/min 3.375 g IV Q 12 hours Over 4 hours CrCl <10, HD, PD Follow [facility] Dosage Adjustments in Renal Dysfunction Protocol [...] 01/28/151515 Date of Service: 01/28/151515 Status: Signed Interventional Physiatrist: Jimena Duarte RPH (Pharmacist) Renal Dosing Monitoring: [...] | | | | | [place] [address] | | | | + + + + + + | RED CELL | 2.72 (L)Comment: Testing | 3.70 - 5.10 | EXTERNAL | | | COUNT | performed at [facility], [address] | M/uL | LAB | | | | [address], | | | | | | [place] [address] | | | | + + + + + + | Hgb | 9.6 (L)Comment: Testing | 11.3 - 15.5 | EXTERNAL | | | | performed at [facility], [address] | g/dL | LAB | | | | [address], | | | | | | [place] [address] | | | | + + + + + + | Hematocrit, | 28.8 (L)Comment: Testing | 34.0 - 46.0 % | EXTERNAL | | | POC | performed at [facility], [address] | | LAB | | | | [address] [place], | | | | | | [place] [address] | | | | + + + + + + | MCV | 106.0 (H)Comment: | 80.0 - 100.0 fl | EXTERNAL | | | | Testing performed at | | LAB | | | | [facility], [address] | | | | | | [place] | | | | | | [address] | | | | + + + + + + | MCH | 35.2 (H)Comment: Testing | 27.0 - 34.0 pg | EXTERNAL | | | | performed at [facility], [address] | | LAB | | | | [address], | | | | | | [place] [address] | | | | + + + + + + | MCHC | 33.2Comment: Testing | 32.0 - 35.5 | EXTERNAL | | | | performed at [facility], [address] | g/dL | LAB | | | | [address], | | | | | | [place] [address] | | | | + + + + + + | RDW-CV | 53.4 (H)Comment: Testing | 37 - 53 fl | EXTERNAL | | | | performed at [facility], [address] | | LAB | | | | [address], | | | | | | [place] [address] | | | | + + + + + + | Platelet | 216Comment: Testing | 150 - 400 K/uL | EXTERNAL | | | Count | performed at [facility], [address] | | LAB | | | Plasma | [address], | | | | | | [place] [address] | | | | + + + + + + | MPV | 10.5Comment: Testing | fl | EXTERNAL | | | | performed at [facility], [address] | | LAB | | | | [address], | | | | | | [place], [place] [address] | | | | + + + + + + | Differentia | MANUALComment: Testing | | EXTERNAL | | | l Type | performed at [facility], [address] | | LAB | | | | [address], | | | | | | [place], [place] [address] | | | | + + + + + + | Segmented | 35Comment: Testing | % | EXTERNAL | | | Neutrophils | performed at [facility], [address] | | LAB | | | Manual | [address], | | | | | | [place] [address] | | | | + + + + + + | % Bands | 1Comment: Testing | % | EXTERNAL | | | | performed at [facility], [address] | | LAB | | | | [address], | | | | | | [place] [address] | | | | + + + + + + | Lymphocytes | 44Comment: Testing | % | EXTERNAL | | | Manual | performed at [facility], [address] | | LAB | | | | [address], | | | | | | [place] [address] | | | | + + + + + + | Monocytes | 12Comment: Testing | % | EXTERNAL | | | Manual | performed at [facility], [address] | | LAB | | | | [address], | | | | | | [place] [address] | | | | + + + + + + | Eosinophils | 8Comment: Testing | % | EXTERNAL | | | Manual | performed at [facility], [address] | | LAB | | | | [address], | | | | | | [place] [address] | | | | + + + + + + | Absolute | 3.08Comment: Testing | 1.90 - 7.40 | EXTERNAL | | | Neutrophils | performed at [facility], [address] | K/uL | LAB | | | | [address], | | | | | | [place] [address] | | | | + + + + + + | Bands | 0.09Comment: Testing | 0.00 - 0.20 | EXTERNAL | | | Manual | performed at [facility], [address] | K/uL | LAB | | | | [address], | | | | | | [place] [address] | | | | + + + + + + | Absolute | 3.88Comment: Testing | 1.00 - 3.90 | EXTERNAL | | | Lymphocytes | performed at [facility], [address] | K/uL | LAB | | | | [address], | | | | | | [place] [address] | | | | + + + + + + | Absolute | 1.06 (H)Comment: Testing | 0.00 - 0.80 | EXTERNAL | | | Monocytes | performed at [facility], [address] | K/uL | LAB | | | | [address], | | | | | | [place] [address] | | | | + + + + + + | Absolute | 0.70 (H)Comment: Testing | 0.00 - 0.50 | EXTERNAL | | | Eosinophils | performed at [facility], [address] | K/uL | LAB | | | | [address], | | | | | | [place] [address] | | | | + + + + + + | RBC | NORMAL PLT MORPHComment: | | EXTERNAL | | | Morphology | NORMAL RBC MORPHTesting | | LAB | | | | performed at [facility], [address] | | | | | | [address], | | | | | | [place] [address] | | | | + + + [...] | | | | performed at [facility], [address] | | LAB | | | | [address], | | | | | | [place] [address] | | | | + + + [...] | | | | performed at [facility], [address] | | LAB | | | | [address], | | | | | | [place] [address] | | | | + + + [...] | | | | | [place] [address] | | | | + + + + + + | K | 4.0Comment: Testing | 3.5 - 4.9 | EXTERNAL | | | | performed at [facility], [address] | mmol/L | LAB | | | | [place] [place], | | | | | | [place] [address] | | | | + + + + + + | Cl | 102Comment: Testing | 99 - 109 mmol/L | EXTERNAL | | | | performed at [facility], [address] | | LAB | | | | [address] [place], | | | | | | [place] [address] | | | | + + + + + + | CO2 | 33 (H)Comment: Testing | 23 - 32 mmol/L | EXTERNAL | | | | performed at [facility], [address] | | LAB | | | | [address], | | | | | | [place] [address] | | | | + + + + + + | Anion Gap | 5Comment: Testing | 5 - 20 mmol/L | EXTERNAL | | | | performed at [facility], [address] | | LAB | | | | [address], | | | | | | [place] [address] | | | | + + + + + + | Glucose, | 105 (H)Comment: Testing | 65 - 99 mg/dL | EXTERNAL | | | Fasting | performed at [facility], [address] | | LAB | | | | [address], | | | | | | [place] [address] | | | | + + + + + + | BUN | 9Comment: Testing | 8 - 25 mg/dL | EXTERNAL | | | | performed at [facility], [address] | | LAB | | | | [address], | | | | | | [place] [address] | | | | + + + + + + | Creatinine | 0.82Comment: Testing | 0.50 - 1.00 | EXTERNAL | | | | performed at [facility], [address] | mg/dL | LAB | | | | [address], | | | | | | [place] [address] | | | | + + + + + + | BUN/Creatin | 11Comment: Testing | | EXTERNAL | | | ine Ratio | performed at [facility], [address] | | LAB | | | | [address], | | | | | | [place] [address] | | | | + + + + + + | Calcium | 8.5Comment: Testing | 8.5 - 10.5 | EXTERNAL | | | | performed at [facility], [address] | mg/dL | LAB | | | | [address] [place], | | | | | | [place] [address] | | | | + + + + + + | Protein, | 6.3Comment: Testing | 6.3 - 8.2 g/dL | EXTERNAL | | | Total | performed at [facility], [address] | | LAB | | | | [address], | | | | | | [place] [address] | | | | + + + + + + | Albumin | 2.8 (L)Comment: Testing | 3.3 - 4.8 g/dL | EXTERNAL | | | | performed at [facility], [address] | | LAB | | | | [address], | | | | | | [place] [address] | | | | + + + + + + | Globulin | 3.5Comment: Testing | 1.3 - 4.9 g/dL | EXTERNAL | | | | performed at [facility], [address] | | LAB | | | | [address], | | | | | | [place] [address] | | | | + + + + + + | A/G Ratio | 0.8 (L)Comment: Testing | 1.0 - 2.4 | EXTERNAL | | | | performed at [facility], [address] | | LAB | | | | [address], | | | | | | [place] [address] | | | | + + + + + + | Bilirubin | 0.5Comment: Testing | 0.1 - 1.5 mg/dL | EXTERNAL | | | Total | performed at [facility], [address] | | LAB | | | | [address], | | | | | | [place] [address] | | | | + + + + + + | ALP, | 102Comment: Testing | 35 - 115 U/L | EXTERNAL | | | External | performed at [facility], [address] | | LAB | | | | [address], | | | | | | [place] [address] | | | | + + + + + + | AST | 53 (H)Comment: Testing | 10 - 45 U/L | EXTERNAL | | | | performed at [facility], [address] | | LAB | | | | [address], | | | | | | [place] [address] | | | | + + + + + + | ALT | 21Comment: Testing | 10 - 65 U/L | EXTERNAL | | | | performed at [facility], [address] | | LAB | | | | [address], | | | | | | [place] [address] | | | | + + + [...] | | | | | at [facility], [address] | | | | | | [address] [facility], | | | | | | [place] [address] | | | | + + + [...] EXTERNAL | | | | performed at [facility];888 | mmol/L | LAB | | | | [address];[place], [place] | | | | | | [address] | | | | + + + [...] EXTERNAL | | | | performed at [facility];[address] | | LAB | | | | [address];[place] | | | | | | [address] | | | | + + + [...] | | | | performed at [facility], [address] | K/uL | LAB | | | | [address], | | | | | | [place] [address] | | | | + + + + + + | RED CELL | 2.78 (L)Comment: Testing | 3.70 - 5.10 | EXTERNAL | | | COUNT | performed at [facility], [address] | M/uL | LAB | | | | [address], | | | | | | [place] [address] | | | | + + + + + + | Hgb | 9.7 (L)Comment: Testing | 11.3 - 15.5 | EXTERNAL | | | | performed at [facility], [address] | g/dL | LAB | | | | [address], | | | | | | [place] [address] | | | | + + + + + + | Hematocrit, | 29.6 (L)Comment: Testing | 34.0 - 46.0 % | EXTERNAL | | | POC | performed at [facility], [address] | | LAB | | | | [address], | | | | | | [place] [address] | | | | + + + + + + | MCV | 106.3 (H)Comment: | 80.0 - 100.0 fl | EXTERNAL | | | | Testing performed at | | LAB | | | | [facility], [address] [facility] | | | | | | [place] | | | | | | [address] | | | | + + + + + + | MCH | 34.8 (H)Comment: Testing | 27.0 - 34.0 pg | EXTERNAL | | | | performed at [facility], [address] | | LAB | | | | [address], | | | | | | [place] [address] | | | | + + + + + + | MCHC | 32.8Comment: Testing | 32.0 - 35.5 | EXTERNAL | | | | performed at [facility], [address] | g/dL | LAB | | | | [address], | | | | | | [place] [address] | | | | + + + + + + | RDW-CV | 53.8 (H)Comment: Testing | 37 - 53 fl | EXTERNAL | | | | performed at [facility], [address] | | LAB | | | | [address], | | | | | | [place] [address] | | | | + + + + + + | Platelet | 181Comment: Testing | 150 - 400 K/uL | EXTERNAL | | | Count | performed at [facility], [address] | | LAB | | | Plasma | [address], | | | | | | [place] [address] | | | | + + [...] | | | | | [place] [address] | | | | + + + + + + | Segmented | 45Comment: Testing | % | EXTERNAL | | | Neutrophils | performed at [facility], [address] | | LAB | | | Manual | [address], | | | | | | [place] [address] | | | | + + + + + + | % Bands | 1Comment: Testing | % | EXTERNAL | | | | performed at [facility], [address] | | LAB | | | | [address], | | | | | | [place] [address] | | | | + + + + + + | Lymphocytes | 35Comment: Testing | % | EXTERNAL | | | Manual | performed at [facility], [address] | | LAB | | | | [address], | | | | | | [place], [place] [address] | | | | + + + + + + | Monocytes | 11Comment: Testing | % | EXTERNAL | | | Manual | performed at [facility], [address] | | LAB | | | | [address], | | | | | | [place] [address] | | | | + + + + + + | Eosinophils | 8Comment: Testing | % | EXTERNAL | | | Manual | performed at [facility], [address] | | LAB | | | | [address], | | | | | | [place] [address] | | | | + + + + + + | Absolute | 3.85Comment: Testing | 1.90 - 7.40 | EXTERNAL | | | Neutrophils | performed at [facility], [address] | K/uL | LAB | | | | [address], | | | | | | [place] [address] | | | | + + + + + + | Bands | 0.09Comment: Testing | 0.00 - 0.20 | EXTERNAL | | | Manual | performed at [facility], [address] | K/uL | LAB | | | | [address], | | | | | | [place] [address] | | | | + + + + + + | Absolute | 3.01Comment: Testing | 1.00 - 3.90 | EXTERNAL | | | Lymphocytes | performed at [facility], [address] | K/uL | LAB | | | | [address], | | | | | | [place] [address] | | | | + + + + + + | Absolute | 0.95 (H)Comment: Testing | 0.00 - 0.80 | EXTERNAL | | | Monocytes | performed at [facility], [address] | K/uL | LAB | | | | [address], | | | | | | [place] [address] | | | | + + + + + + | Absolute | 0.69 (H)Comment: Testing | 0.00 - 0.50 | EXTERNAL | | | Eosinophils | performed at [facility], [address] | K/uL | LAB | | | | [address], | | | | | | [place] [address] | | | | + + + + + + | RBC | 2+Comment: MACRONORMAL | | EXTERNAL | | | Morphology | PLT MORPHTesting | | LAB | | | | performed at [facility], [address] | | | | | | [address], | | | | | | [place] [address] | | | | | | | [...] | | | | | [place] [address] | | | | + + + [...] | | | | performed at [facility], [address] | | LAB | | | | [address], | | | | | | [place] [address] | | | | + + + [...] | | | | | [place] [address] | | | | + + + + + + | K | 3.2 (L)Comment: Testing | 3.5 - 4.9 | EXTERNAL | | | | performed at [facility], [address] | mmol/L | LAB | | | | [address], | | | | | | [place] [address] | | | | + + + + + + | Cl | 103Comment: Testing | 99 - 109 mmol/L | EXTERNAL | | | | performed at [facility], [address] | | LATA | | | | [address], | | | | | | [place] [address] | | | | + + + + + + | CO2 | 31Comment: Testing | 23 - 32 mmol/L | EXTERNAL | | | | performed at [facility], [address] | | LAB | | | | [address], | | | | | | [place] [address] | | | | + + + + + + | Anion Gap | 7Comment: Testing | 5 - 20 mmol/L | EXTERNAL | | | | performed at [facility], [address] | | LAB | | | | [address], | | | | | | [place] [address] | | | | + + + [...] | | | | | [place] [address] | | | | + + + + + + | Creatinine | 0.83Comment: Testing | 0.50 - 1.00 | EXTERNAL | | | | performed at [facility], [address] | mg/dL | LAB | | | | [address], | | | | | | [place] [address] | | | | + + + + + + | BUN/Creatin | 12Comment: Testing | | EXTERNAL | | | ine Ratio | performed at [facility], [address] | | LAB | | | | [address], | | | | | | [place] [address] | | | | + + + + + + | Calcium | 8.2 (L)Comment: Testing | 8.5 - 10.5 | EXTERNAL | | | | performed at [facility], [address] | mg/dL | LAB | | | | [address], | | | | | | [place] [address] | | | | + + + + + + | Protein, | 6.2 (L)Comment: Testing | 6.3 - 8.2 g/dL | EXTERNAL | | | Total | performed at [facility], [address] | | LAB | | | | [address], | | | | | | [place] [address] | | | | + + + + + + | Albumin | 2.7 (L)Comment: Testing | 3.3 - 4.8 g/dL | EXTERNAL | | | | performed at [facility], [address] | | LAB | | | | [address], | | | | | | [place] [address] | | | | + + + + + + | Globulin | 3.5Comment: Testing | 1.3 - 4.9 g/dL | EXTERNAL | | | | performed at [facility], [address] | | LAB | | | | [address], | | | | | | [place] [address] | | | | + + + + + + | A/G Ratio | 0.8 (L)Comment: Testing | 1.0 - 2.4 | EXTERNAL | | | | performed at [facility], [address] | | LAB | | | | [address], | | | | | | [place] [address] | | | | + + + + + + | Bilirubin | 0.5Comment: Testing | 0.1 - 1.5 mg/dL | EXTERNAL | | | Total | performed at [facility], [address] | | LAB | | | | [address], | | | | | | [place] [address] | | | | + + + + + + | ALP, | 98Comment: Testing | 35 - 115 U/L | EXTERNAL | | | External | performed at [facility], [address] | | LAB | | | | [address], | | | | | | [place] [address] | | | | + + + + + + | AST | 35Comment: Testing | 10 - 45 U/L | EXTERNAL | | | | performed at [facility], [address] | | LAB | | | | [address], | | | | | | [place] [address] | | | | + + + + + + | ALT | 15Comment: Testing | 10 - 65 U/L | EXTERNAL | | | | performed at [facility], [address] | | LAB | | | | [address], | | | | | | [place] [address] | | | | + + + [...] [address], | | | | | | [place] [address] | | | | + + + [...] | | | | performed at [facility], [address] | | LAB | | | | [address], | | | | | | [place] [address] | | | | + + + [...] | | | B-12 | performed at [facility], [address] | pg/mL | LAB | | | | [address], | | | | | | [place] [address] | | | | + + + [...] | | | | performed at [facility], [address] | K/uL | LAB | | | | [address], | | | | | | [place] [address] | | | | + + + + + + | RED CELL | 2.72 (L)Comment: Testing | 3.70 - 5.10 | EXTERNAL | | | COUNT | performed at [facility], [address] | M/uL | LAB | | | | [address], | | | | | | [place] [address] | | | | + + + + + + | Hgb | 9.4 (L)Comment: Testing | 11.3 - 15.5 | EXTERNAL | | | | performed at [facility], [address] | g/dL | LAB | | | | [address], | | | | | | [place] [address] | | | | + + + + + + | Hematocrit, | 29.1 (L)Comment: Testing | 34.0 - 46.0 % | EXTERNAL | | | POC | performed at [facility], [address] | | LAB | | | | [address], | | | | | | [place] [address] | | | | + + + + + + | MCV | 107.3 (H)Comment: | 80.0 - 100.0 fl | EXTERNAL | | | | Testing performed at | | LAB | | | | [facility], [address] [facility] | | | | | | [place] | | | | | | [address] | | | | + + + + + + | MCH | 34.6 (H)Comment: Testing | 27.0 - 34.0 pg | EXTERNAL | | | | performed at [facility], [address] | | LAB | | | | [address], | | | | | | [place] [address] | | | | + + + + + + | MCHC | 32.2Comment: Testing | 32.0 - 35.5 | EXTERNAL | | | | performed at [facility], [address] | g/dL | LAB | | | | [address], | | | | | | [place] [address] | | | | + + + + + + | RDW-CV | 57.3 (H)Comment: Testing | 37 - 53 fl | EXTERNAL | | | | performed at [facility], [address] | | LAB | | | | [address], | | | | | | [place] [address] | | | | + + + + + + | Platelet | 174Comment: Testing | 150 - 400 K/uL | EXTERNAL | | | Count | performed at [facility], [address] | | LAB | | | Plasma | [address], | | | | | | [place] [address] | | | | + + + + + + | MPV | 10.9Comment: Testing | fl | EXTERNAL | | | | performed at [facility], [address] | | LAB | | | | [address], | | | | | | [place] [address] | | | | + + + + + + | Differentia | MANUALComment: Testing | | EXTERNAL | | | l Type | performed at [facility], [address] | | LAB | | | | [address], | | | | | | [place], [place] [address] | | | | + + + + + + | Segmented | 45Comment: Testing | % | EXTERNAL | | | Neutrophils | performed at [facility], [address] | | LAB | | | Manual | [address], | | | | | | [place], [place] [address] | | | | + + + + + + | % Bands | 1Comment: Testing | % | EXTERNAL | | | | performed at [facility], [address] | | LAB | | | | [address], | | | | | | [place], [place] [address] | | | | + + + + + + | Lymphocytes | 34Comment: Testing | % | EXTERNAL | | | Manual | performed at [facility], [address] | | LAB | | | | [address], | | | | | | [place] [address] | | | | + + + + + + | Monocytes | 11Comment: Testing | % | EXTERNAL | | | Manual | performed at [facility], [address] | | LAB | | | | [address], | | | | | | [place] [address] | | | | + + + + + + | Eosinophils | 9Comment: Testing | % | EXTERNAL | | | Manual | performed at [facility], [address] | | LAB | | | | [address], | | | | | | [place] [address] | | | | + + + + + + | Absolute | 3.77Comment: Testing | 1.90 - 7.40 | EXTERNAL | | | Neutrophils | performed at [facility], [address] | K/uL | LAB | | | | [address], | | | | | | [place] [address] | | | | + + + + + + | Bands | 0.08Comment: Testing | 0.00 - 0.20 | EXTERNAL | | | Manual | performed at [facility], [address] | K/uL | LAB | | | | [address], | | | | | | [place] [address] | | | | + + + + + + | Absolute | 2.84Comment: Testing | 1.00 - 3.90 | EXTERNAL | | | Lymphocytes | performed at [facility], [address] | K/uL | LAB | | | | [address], | | | | | | [place] [address] | | | | + + + + + + | Absolute | 0.92 (H)Comment: Testing | 0.00 - 0.80 | EXTERNAL | | | Monocytes | performed at [facility], [address] | K/uL | LAB | | | | [address], | | | | | | [place] [address] | | | | + + + + + + | Absolute | 0.75 (H)Comment: Testing | 0.00 - 0.50 | EXTERNAL | | | Eosinophils | performed at [facility], [address] | K/uL | LAB | | | | [address], | | | | | | [place] [address] | | | | + + + + + + | RBC | NORMAL PLT MORPHComment: | | EXTERNAL | | | Morphology | NORMAL RBC MORPHTesting | | LAB | | | | performed at [facility], [address] | | | | | | [address], | | | | | | [place] [address] | | | | + + + [...] | | | | performed at [facility], [address] | | LAB | | | | [address], | | | | | | [place] [address] | | | | + + + [...] | | | | | [place] [address] | | | | + + + [...] | | | | | [place] [address] | | | | + + + + + + | K | 3.8Comment: Testing | 3.5 - 4.9 | EXTERNAL | | | | performed at [facility], [address] | mmol/L | LAB | | | | [address], | | | | | | [place] [address] | | | | + + + + + + | Cl | 111 (H)Comment: Testing | 99 - 109 mmol/L | EXTERNAL | | | | performed at [facility], [address] | | LAB | | | | [address], | | | | | | [place] [address] | | | | + + + + + + | CO2 | 25Comment: Testing | 23 - 32 mmol/L | EXTERNAL | | | | performed at [facility], [address] | | LAB | | | | [address], | | | | | | [place] [address] | | | | + + + + + + | Anion Gap | 5Comment: Testing | 5 - 20 mmol/L | EXTERNAL | | | | performed at [facility], [address] | | LAB | | | | [address], | | | | | | [place] [address] | | | | + + + + + + | Glucose, | 112 (H)Comment: Testing | 65 - 99 mg/dL | EXTERNAL | | | Fasting | performed at [facility], [address] | | LAB | | | | [address], | | | | | | [place] [address] | | | | + + + + + + | BUN | 13Comment: Testing | 8 - 25 mg/dL | EXTERNAL | | | | performed at [facility], [address] | | LAB | | | | [address], | | | | | | [place] [address] | | | | + + + + + + | Creatinine | 0.74Comment: Testing | 0.50 - 1.00 | EXTERNAL | | | | performed at [facility], [address] | mg/dL | LAB | | | | [address], | | | | | | [place] [address] | | | | + + + + + + | BUN/Creatin | 18Comment: Testing | | EXTERNAL | | | ine Ratio | performed at [facility], [address] | | LAB | | | | [address], | | | | | | [place] [address] | | | | + + + + + + | Calcium | 8.0 (L)Comment: Testing | 8.5 - 10.5 | EXTERNAL | | | | performed at [facility], [address] | mg/dL | LAB | | | | [address], | | | | | | [place] [address] | | | | + + + + + + | Protein, | 5.9 (L)Comment: Testing | 6.3 - 8.2 g/dL | EXTERNAL | | | Total | performed at [facility], [address] | | LAB | | | | [address], | | | | | | [place] [address] | | | | + + + + + + | Albumin | 2.6 (L)Comment: Testing | 3.3 - 4.8 g/dL | EXTERNAL | | | | performed at [facility], [address] | | LAB | | | | [address], | | | | | | [place] [address] | | | | + + + + + + | Globulin | 3.3Comment: Testing | 1.3 - 4.9 g/dL | EXTERNAL | | | | performed at [facility], [address] | | LAB | | | | [address], | | | | | | [place] [address] | | | | + + + + + + | A/G Ratio | 0.8 (L)Comment: Testing | 1.0 - 2.4 | EXTERNAL | | | | performed at [facility], [address] | | LAB | | | | [address], | | | | | | [place] [address] | | | | + + + + + + | Bilirubin | 0.4Comment: Testing | 0.1 - 1.5 mg/dL | EXTERNAL | | | Total | performed at [facility], [address] | | LAB | | | | [address], | | | | | | [place] [address] | | | | + + + + + + | ALP, | 93Comment: Testing | 35 - 115 U/L | EXTERNAL | | | External | performed at [facility], [address] | | LAB | | | | [address], | | | | | | [place] [address] | | | | + + + + + + | AST | 23Comment: Testing | 10 - 45 U/L | EXTERNAL | | | | performed at [facility], [address] | | LAB | | | | [address], | | | | | | [place] [address] | | | | + + + + + + | ALT | 14Comment: Testing | 10 - 65 U/L | EXTERNAL | | | | performed at [facility], [address] | | LAB | | | | [address], | | | | | | [place] [address] | | | | + + + [...] | | | | | [place] [address] | | | | + + + [...] | | | | performed at [facility], [address] | K/uL | LAB | | | | [address], | | | | | | [place] [address] | | | | + + + + + + | RED CELL | 2.78 (L)Comment: Testing | 3.70 - 5.10 | EXTERNAL | | | COUNT | performed at [facility], [address] | M/uL | LAB | | | | [address], | | | | | | [place] [address] | | | | + + + + + + | Hgb | 9.7 (L)Comment: Testing | 11.3 - 15.5 | EXTERNAL | | | | performed at [facility], [address] | g/dL | LAB | | | | [address], | | | | | | [place] [address] | | | | + + + + + + | Hematocrit, | 29.9 (L)Comment: Testing | 34.0 - 46.0 % | EXTERNAL | | | POC | performed at [facility], [address] | | LAB | | | | [address], | | | | | | [place] [address] | | | | + + + + + + | MCV | 107.5 (H)Comment: | 80.0 - 100.0 fl | EXTERNAL | | | | Testing performed at | | LAB | | | | [facility], [address] [facility] | | | | | | [place] | | | | | | [address] | | | | + + + + + + | MCH | 34.9 (H)Comment: Testing | 27.0 - 34.0 pg | EXTERNAL | | | | performed at [facility], [address] | | LAB | | | | [address], | | | | | | [place] [address] | | | | + + + + + + | MCHC | 32.5Comment: Testing | 32.0 - 35.5 | EXTERNAL | | | | performed at [facility], [address] | g/dL | LAB | | | | [address], | | | | | | [place] [address] | | | | + + + + + + | RDW-CV | 57.3 (H)Comment: Testing | 37 - 53 fl | EXTERNAL | | | | performed at [facility], [address] | | LAB | | | | [address], | | | | | | [place] [address] | | | | + + + + + + | Platelet | 162Comment: Testing | 150 - 400 K/uL | EXTERNAL | | | Count | performed at [facility], [address] | | LAB | | | Plasma | [address], | | | | | | [place] [address] | | | | + + + + + + | MPV | 11.6Comment: Testing | fl | EXTERNAL | | | | performed at [facility], [address] | | LAB | | | | [address], | | | | | | [place], [place] [address] | | | | + + + + + + | Differentia | MANUALComment: Testing | | EXTERNAL | | | l Type | performed at [facility], [address] | | LAB | | | | [address], | | | | | | [place], [place] [address] | | | | + + + + + + | Segmented | 31Comment: Testing | % | EXTERNAL | | | Neutrophils | performed at [facility], [address] | | LAB | | | Manual | [address], | | | | | | [place], [place] [address] | | | | + + + + + + | Lymphocytes | 52Comment: Testing | % | EXTERNAL | | | Manual | performed at [facility], [address] | | LAB | | | | [address], | | | | | | [place] [address] | | | | + + + + + + | Monocytes | 11Comment: Testing | % | EXTERNAL | | | Manual | performed at [facility], [address] | | LAB | | | | [address], | | | | | | [place] [address] | | | | + + + + + + | Eosinophils | 6Comment: Testing | % | EXTERNAL | | | Manual | performed at [facility], [address] | | LAB | | | | [address], | | | | | | [place] [address] | | | | + + + + + + | Absolute | 3.19Comment: Testing | 1.90 - 7.40 | EXTERNAL | | | Neutrophils | performed at [facility], [address] | K/uL | LAB | | | | [address], | | | | | | [place] [address] | | | | + + + + + + | Absolute | 5.36 (H)Comment: Testing | 1.00 - 3.90 | EXTERNAL | | | Lymphocytes | performed at [facility], [address] | K/uL | LAB | | | | [address], | | | | | | [place] [address] | | | | + + + + + + | Absolute | 1.13 (H)Comment: Testing | 0.00 - 0.80 | EXTERNAL | | | Monocytes | performed at [facility], [address] | K/uL | LAB | | | | [address], | | | | | | [place] [address] | | | | + + + + + + | Absolute | 0.62 (H)Comment: Testing | 0.00 - 0.50 | EXTERNAL | | | Eosinophils | performed at [facility], [address] | K/uL | LAB | | | | [address], | | | | | | [place] [address] | | | | + + + + + + | RBC | 2+Comment: MACRONORMAL | | EXTERNAL | | | Morphology | PLT MORPHTesting | | LAB | | | | performed at [facility], [address] | | | | | | [address], | | | | | | [place] [address] | | | | | | | [...] | | | | performed at [facility], [address] | | LAB | | | | [address], | | | | | | [place] [address] | | | | + + + [...] | | | | performed at [facility], [address] | | LAB | | | | [address], | | | | | | [place] [address] | | | | + + + [...] | | | | | [place] [address] | | | | + + + + + + | K | 4.2Comment: Testing | 3.5 - 4.9 | EXTERNAL | | | | performed at [facility], [address] | mmol/L | LAB | | | | [address], | | | | | | [place] [address] | | | | + + + + + + | Cl | 112 (H)Comment: Testing | 99 - 109 mmol/L | EXTERNAL | | | | performed at [facility], [address] | | LAB | | | | [address], | | | | | | [place] [address] | | | | + + + + + + | CO2 | 27Comment: Testing | 23 - 32 mmol/L | EXTERNAL | | | | performed at [facility], [address] | | LAB | | | | [address], | | | | | | [place] [address] | | | | + + + + + + | Anion Gap | 4 (L)Comment: Testing | 5 - 20 mmol/L | EXTERNAL | | | | performed at [facility], [address] | | LAB | | | | [address], | | | | | | [place] [address] | | | | + + + + + + | Glucose, | 94Comment: Testing | 65 - 99 mg/dL | EXTERNAL | | | Fasting | performed at [facility], [address] | | LAB | | | | [address], | | | | | | [place] [address] | | | | + + + + + + | BUN | 19Comment: Testing | 8 - 25 mg/dL | EXTERNAL | | | | performed at [facility], [address] | | LAB | | | | [address], | | | | | | [place] [address] | | | | + + + + + + | Creatinine | 1.01 (H)Comment: Testing | 0.50 - 1.00 | EXTERNAL | | | | performed at [facility], [address] | mg/dL | LAB | | | | [address], | | | | | | [place] [address] | | | | + + + + + + | BUN/Creatin | 19Comment: Testing | | EXTERNAL | | | ine Ratio | performed at [facility], [address] | | LAB | | | | [address], | | | | | | [place] [address] | | | | + + + + + + | Calcium | 8.1 (L)Comment: Testing | 8.5 - 10.5 | EXTERNAL | | | | performed at [facility], [address] | mg/dL | LAB | | | | [address], | | | | | | [place] [address] | | | | + + + + + + | Protein, | 5.9 (L)Comment: Testing | 6.3 - 8.2 g/dL | EXTERNAL | | | Total | performed at [facility], [address] | | LAB | | | | [address], | | | | | | [place] [address] | | | | + + + + + + | Albumin | 2.5 (L)Comment: Testing | 3.3 - 4.8 g/dL | EXTERNAL | | | | performed at [facility], [address] | | LAB | | | | [address], | | | | | | [place] [address] | | | | + + + [...] | | | | | [place] [address] | | | | + + + + + + | Bilirubin | 0.3Comment: Testing | 0.1 - 1.5 mg/dL | EXTERNAL | | | Total | performed at [facility], [address] | | LAB | | | | [address], | | | | | | [place] [address] | | | | + + + + + + | ALP, | 98Comment: Testing | 35 - 115 U/L | EXTERNAL | | | External | performed at [facility], [address] | | LAB | | | | [address], | | | | | | [place] [address] | | | | + + + + + + | AST | 24Comment: Testing | 10 - 45 U/L | EXTERNAL | | | | performed at [facility], [address] | | LAB | | | | [address], | | | | | | [place] [address] | | | | + + + + + + | ALT | 14Comment: Testing | 10 - 65 U/L | EXTERNAL | | | | performed at [facility], [address] | | LAB | | | | [facility], | | | | | | [place] [address] | | | | + + + [...] W | | | | | | [address]. [facility], | | | | | | [place] [address] | | | | + + + [...] [place] | | | | | | [address] | | | | + + +---- + + + | RED CELL | 2.93 (L)Comment: Testing | 3.7 0 - 5.10 | EXTERNAL | | | COUNT | performed at [facility], [address] | M/u L | LAB | | | | [address], | | | | | | [place] [address] | | | | + + +---- + + + | Hgb | 10.2 (L)Comment: Testing | 11. 3 - 15.5 | EXTERNAL | | | | performed at [facility], [address] | g/d L | LAB | | | | [address], | | | | | | [place] [address] | | | | + + +---- + + + | Hematocrit, | 31.6 (L)Comment: Testing | 34. 0 - 46.0 % | EXTERNAL | | | POC | performed at [facility], [address] | | LAB | | | | [address], | | | | | | [place] [address] | | | | + + +---- + + + | MCV | 107.8 (H)Comment: | 80. 0 - 100.0 fl | EXTERNAL | | | | Testing performed at | | LAB | | | | [facility], [address] | | | | | | [place] | | | | | | [address] | | | | + + +---- + + + | MCH | 34.8 (H)Comment: Testing | 27. 0 - 34.0 pg | EXTERNAL | | | | performed at [facility], [address] | | LAB | | | | [address], | | | | | | [place] [address] | | | | + + +---- + + + | MCHC | 32.3Comment: Testing | 32. 0 - 35.5 | EXTERNAL | | | | performed at [facility], [address] | g/d L | LAB | | | | [address], | | | | | | [place] [address] | | | | + + +---- + + + | RDW-CV | 57.3 (H)Comment: Testing | 37 - 53 fl | EXTERNAL | | | | performed at [facility], [address] | | LAB | | | | [address], | | | | | | [place] [address] | | | | + + +---- + + + | Platelet | 146 (L)Comment: Testing | 150 - 400 K/uL | EXTERNAL | | | Count | performed at [facility], [address] | | LAB | | | Plasma | [address], | | | | | | [place] [address] | | | | + + +---- + + + | MPV | 11.2Comment: Testing | fl | EXTERNAL | | | | performed at [facility], [address] | | LAB | | | | [address], | | | | | | [place] [address] | | | | + + +---- + + + | Differentia | MANUALComment: Testing | | EXTERNAL | | | l Type | performed at [facility], [address] | | LAB | | | | [address], | | | | | | [place] [address] | | | | + + +---- + + + | Segmented | 58Comment: Testing | % | EXTERNAL | | | Neutrophils | performed at [facility], [address] | | LAB | | | Manual | [address], | | | | | | [place] [address] | | | | + + +---- + + + | % Bands | 20Comment: Testing | % | EXTERNAL | | | | performed at [facility], [address] | | LAB | | | | [address], | | | | | | [place] [address] | | | | + + +---- + + + | Lymphocytes | 13Comment: Testing | % | EXTERNAL | | | Manual | performed at [facility], [address] | | LAB | | | | [address], | | | | | | [place] [address] | | | | + + +---- + + + | Monocytes | 7Comment: Testing | % | EXTERNAL | | | Manual | performed at [facility], [address] | | LAB | | | | [address], | | | | | | [place] [address] | | | | + + +---- + + + | Eosinophils | 2Comment: Testing | % | EXTERNAL | | | Manual | performed at [facility], [address] | | LAB | | | | [address], | | | | | | [place] [address] | | | | + + +---- + + + | Absolute | 9.23 (H)Comment: Testing | 1.9 0 - 7.40 | EXTERNAL | | | Neutrophils | performed at [facility], [address] | K/u L | LAB | | | | [address], | | | | | | [place] [address] | | | | + + +---- + + + | Bands | 3.18 (H)Comment: Testing | 0.0 0 - 0.20 | EXTERNAL | | | Manual | performed at [facility], [address] | K/u L | LAB | | | | [address], | | | | | | [place] [address] | | | | + + +---- + + + | Absolute | 2.07Comment: Testing | 1.0 0 - 3.90 | EXTERNAL | | | Lymphocytes | performed at [facility], [address] | K/u L | LAB | | | | [address], | | | | | | [place] [address] | | | | + + +---- + + + | Absolute | 1.11 (H)Comment: Testing | 0.0 0 - 0.80 | EXTERNAL | | | Monocytes | performed at [facility], [address] | K/u L | LAB | | | | [address], | | | | | | [place] [address] | | | | + + +---- + + + | Absolute | 0.32Comment: Testing | 0.0 0 - 0.50 | EXTERNAL | | | Eosinophils | performed at [facility], [address] | K/u L | LAB | | | | [address], | | | | | | [place] [address] | | | | + + +---- + + + | RBC | 2+Comment: | | EXTERNAL | | | Morphology | MACRO1+ANISONORMAL PLT | | LAB | | | | MORPHTesting performed | | | | | | at [facility], [address] | | | | | | [address], | | | | | | [place] [address] | | | | | |Testing performed at [facility], [address] [place] [address] | | | | | | | [...] | | | | performed at [facility], [address] | | LAB | | | | [address], | | | | | | [place] [address] | | | | + + + [...] | | | | | [place] [address] | | | | + + + [...] | | | | | [place] [address] | | | | + + + + + + | K | 3.9Comment: Testing | 3.5 - 4.9 | EXTERNAL | | | | performed at [facility], [address] | mmol/L | LAB | | | | [address], | | | | | | [place] [address] | | | | + + + + + + | Cl | 109Comment: Testing | 99 - 109 mmol/L | EXTERNAL | | | | performed at [facility], [address] | | LAB | | | | [address], | | | | | | [place] [address] | | | | + + + + + + | CO2 | 24Comment: Testing | 23 - 32 mmol/L | EXTERNAL | | | | performed at [facility], [address] | | LAB | | | | [address], | | | | | | [place] [address] | | | | + + + + + + | Anion Gap | 8Comment: Testing | 5 - 20 mmol/L | EXTERNAL | | | | performed at [facility], [address] | | LAB | | | | [address], | | | | | | [place] [address] | | | | + + + [...] | | | | | | [place] [address] | | | | + + + + + + | Creatinine | 1.39 (H)Comment: Testing | 0.50 - 1.00 | EXTERNAL | | | | performed at [facility], [address] | mg/dL | LAB | | | | [address], | | | | | | [place] [address] | | | | + + + + + + | BUN/Creatin | 18Comment: Testing | | EXTERNAL | | | ine Ratio | performed at [facility], [address] | | LAB | | | | [address], | | | | | | [place] [address] | | | | + + + + + + | Calcium | 8.2 (L)Comment: Testing | 8.5 - 10.5 | EXTERNAL | | | | performed at [facility], [address] | mg/dL | LAB | | | | [address], | | | | | | [place] [address] | | | | + + + + + + | Protein, | 6.1 (L)Comment: Testing | 6.3 - 8.2 g/dL | EXTERNAL | | | Total | performed at [facility], [address] | | LAB | | | | [address], | | | | | | [place] [address] | | | | + + + + + + | Albumin | 2.4 (L)Comment: Testing | 3.3 - 4.8 g/dL | EXTERNAL | | | | performed at [facility], [address] | | LAB | | | | [address], | | | | | | [place] [address] | | | | + + + + + + | Globulin | 3.7Comment: Testing | 1.3 - 4.9 g/dL | EXTERNAL | | | | performed at [facility], [address] | | LAB | | | | [address], | | | | | | [place] [address] | | | | + + + + + + | A/G Ratio | 0.6 (L)Comment: Testing | 1.0 - 2.4 | EXTERNAL | | | | performed at [facility], [address] | | LAB | | | | [address], | | | | | | [place] [address] | | | | + + + + + + | Bilirubin | 0.4Comment: Testing | 0.1 - 1.5 mg/dL | EXTERNAL | | | Total | performed at [facility], [address] | | LAB | | | | [address], | | | | | | [place] [address] | | | | + + + + + + | ALP, | 111Comment: Testing | 35 - 115 U/L | EXTERNAL | | | External | performed at [facility], [address] | | LAB | | | | [address], | | | | | | [place] [address] | | | | + + + + + + | AST | 29Comment: Testing | 10 - 45 U/L | EXTERNAL | | | | performed at [facility], [address] | | LAB | | | | [address], | | | | | | [place] [address] | | | | + + + + + + | ALT | 14Comment: Testing | 10 - 65 U/L | EXTERNAL | | | | performed at [facility], [address] | | LAB | | | | [address], | | | | | | [place] [address] | | | | + + + [...] | | | | | at [facility], [address] | | | | | | [address], | | | | | | [place] [address] | | | | + + + [...] | | | | [facility], [address] [facility] | | | | | | [place] | | | | | | [address] | | | | + + + + + + | RED CELL | 3.12 (L)Comment: Testing | 3.70 - 5.10 | EXTERNAL | | | COUNT | performed at [facility], [address] | M/uL | LAB | | | | [address] [place], | | | | | | [place] [address] | | | | + + + + + + | Hgb | 10.8 (L)Comment: Testing | 11.3 - 15.5 | EXTERNAL | | | | performed at [facility], [address] | g/dL | LAB | | | | [address], | | | | | | [place] [address] | | | | + + + + + + | Hematocrit, | 33.7 (L)Comment: Testing | 34.0 - 46.0 % | EXTERNAL | | | POC | performed at [facility], [address] | | LAB | | | | [address] [place], | | | | | | [place] [address] | | | | + + + + + + | MCV | 108.0 (H)Comment: | 80.0 - 100.0 fl | EXTERNAL | | | | Testing performed at | | LAB | | | | [facility], [address] | | | | | | [place] | | | | | | [address] | | | | + + + + + + | MCH | 34.7 (H)Comment: Testing | 27.0 - 34.0 pg | EXTERNAL | | | | performed at [facility], [address] | | LAB | | | | [address], | | | | | | [place] [address] | | | | + + + + + + | MCHC | 32.1Comment: Testing | 32.0 - 35.5 | EXTERNAL | | | | performed at [facility], [address] | g/dL | LAB | | | | [address], | | | | | | [place] [address] | | | | + + + + + + | RDW-CV | 55.6 (H)Comment: Testing | 37 - 53 fl | EXTERNAL | | | | performed at [facility], [address] | | LAB | | | | [address], | | | | | | [place] [address] | | | | + + + + + + | Platelet | 153Comment: Testing | 150 - 400 K/uL | EXTERNAL | | | Count | performed at [facility], [address] | | LAB | | | Plasma | [address], | | | | | | [place] [address] | | | | + + + + + + | MPV | 11.2Comment: Testing | fl | EXTERNAL | | | | performed at [facility], [address] | | LAB | | | | [address], | | | | | | [place], [place] [address] | | | | + + + + + + | Differentia | MANUALComment: Testing | | EXTERNAL | | | l Type | performed at [facility], [address] | | LAB | | | | [address], | | | | | | [place], [place] [address] | | | | + + + + + + | Segmented | 64Comment: Testing | % | EXTERNAL | | | Neutrophils | performed at [facility], [address] | | LAB | | | Manual | [address], | | | | | | [place] [address] | | | | + + + + + + | % Bands | 15Comment: Testing | % | EXTERNAL | | | | performed at [facility], [address] | | LAB | | | | [address], | | | | | | [place] [address] | | | | + + + + + + | % | 2Comment: Testing | % | EXTERNAL | | | Metamyelocy | performed at [facility], [address] | | LAB | | | [address] | [address], | | | | | | [place] [address] | | | | + + + + + + | Lymphocytes | 12Comment: Testing | % | EXTERNAL | | | Manual | performed at [facility], [address] | | LAB | | | | [address], | | | | | | [place] [address] | | | | + + + + + + | Monocytes | 6Comment: Testing | % | EXTERNAL | | | Manual | performed at [facility], [address] | | LAB | | | | [address], | | | | | | [place] [address] | | | | + + + + + + | Eosinophils | 1Comment: Testing | % | EXTERNAL | | | Manual | performed at [facility], [address] | | LAB | | | | [address] [place], | | | | | | [place] [address] | | | | + + + + + + | Absolute | 11.48 (H)Comment: | 1.90 - 7.40 | EXTERNAL | | | Neutrophils | Testing performed at | K/uL | LAB | | | | [facility], [address] [facility] | | | | | | [place] | | | | | | [address] | | | | + + + + + + | Bands | 2.69 (H)Comment: Testing | 0.00 - 0.20 | EXTERNAL | | | Manual | performed at [facility], [address] | K/uL | LAB | | | | [address], | | | | | | [place] [address] | | | | + + + + + + | Absolute | 0.36 (H)Comment: Testing | K/uL | EXTERNAL | | | Metamyelocy | performed at [facility], [address] | | LAB | | | [address]ma | [address] [place], | | | | | | [place] [address] | | | | + + + + + + | Absolute | 2.15Comment: Testing | 1.00 - 3.90 | EXTERNAL | | | Lymphocytes | performed at [facility], [address] | K/uL | LAB | | | | [address], | | | | | | [place] [address] | | | | + + + + + + | Absolute | 1.08 (H)Comment: Testing | 0.00 - 0.80 | EXTERNAL | | | Monocytes | performed at [facility], [address] | K/uL | LAB | | | | [address], | | | | | | [place] [address] | | | | + + + + + + | Absolute | 0.18Comment: Testing | 0.00 - 0.50 | EXTERNAL | | | Eosinophils | performed at [facility], [address] | K/uL | LAB | | | | [address], | | | | | | [place] [address] | | | | + + + + + + | RBC | 2+Comment: MACRONORMAL | | EXTERNAL | | | Morphology | PLT MORPHTesting | | LAB | | | | performed at [facility], [address] | | | | | | [address], | | | | | | [place] [address] | | | | | | | [...] EXTERNAL | | | | performed at [facility];[address] | mmol/L | LAB | | | | [address];[place] | | | | | | [address] | | | | + + + + + + | K | 3.8Comment: Testing | 3.5 - 4.9 | EXTERNAL | | | | performed at [facility];[address] | mmol/L | LAB | | | | [address];[place] | | | | | | [address] | | | | + + + + + + | Cl | 107Comment: Testing | 99 - 109 mmol/L | EXTERNAL | | | | performed at [facility];[address] | | LAB | | | | [address];[place] | | | | | | [address] | | | | + + + + + + | CO2 | 26Comment: Testing | 23 - 32 mmol/L | EXTERNAL | | | | performed at [facility];[address] | | LAB | | | | [address];[place] | | | | | | [address] | | | | + + + + + + | Anion Gap | 12Comment: Testing | 5 - 20 mmol/L | EXTERNAL | | | | performed at [facility];[address] | | LAB | | | | [address];[place] | | | | | | [address] | | | | + + + + + + | Glucose, | 127 (H)Comment: Testing | 65 - 99 mg/dL | EXTERNAL | | | Fasting | performed at [facility];[address] | | LAB | | | | [address];[place] | | | | | | [address] | | | | + + + + + + | BUN | 28 (H)Comment: Testing | 8 - 25 mg/dL | EXTERNAL | | | | performed at [facility];[address] | | LAB | | | | [address];[place] | | | | | | [address] | | | | + + + + + + | Creatinine | 1.8 (H)Comment: Testing | 0.50 - 1.00 | EXTERNAL | | | | performed at [facility];[address] | mg/dL | LAB | | | | [address];[place] | | | | | | [address] | | | | + + + + + + | BUN/Creatin | 16Comment: Testing | | EXTERNAL | | | ine Ratio | performed at [facility];[address] | | LAB | | | | [address];[place] | | | | | | [address] | | | | + + + + + + | Calcium | 7.6 (L)Comment: Testing | 8.5 - 10.5 | EXTERNAL | | | | performed at [facility];888 | mg/dL | LAB | | | [...] | | | | | | at [facility];[address];[place] [address] | | | | + + + [...] | | | | | | at [facility];[address] [place] [address] | | | | | | [facility];[place] [address] | | | | + + + [...] LAB | | | | [facility], [address] [facility] | | | | | | [place] | | | | | | [address] | | | | + + +---- + + + | RED CELL | 3.07 (L)Comment: Testing | 3.7 0 - 5.10 | EXTERNAL | | | COUNT | performed at [facility], [address] | M/u L | LAB | | | | [address] [place], | | | | | | [place] [address] | | | | + + +---- + + + | Hgb | 10.8 (L)Comment: Testing | 11. 3 - 15.5 | EXTERNAL | | | | performed at [facility], [address] | g/d L | LAB | | | | [address] [place], | | | | | | [place] [address] | | | | + + +---- + + + | Hematocrit, | 32.7 (L)Comment: Testing | 34. 0 - 46.0 % | EXTERNAL | | | POC | performed at [facility], [address] | | LAB | | | | [address] [place], | | | | | | [place] [address] | | | | + + +---- + + + | MCV | 106.4 (H)Comment: | 80. 0 - 100.0 fl | EXTERNAL | | | | Testing performed at | | LAB | | | | [facility], [address] [facility] | | | | | | [place] | | | | | | [address] | | | | + + +---- + + + | MCH | 35.1 (H)Comment: Testing | 27. 0 - 34.0 pg | EXTERNAL | | | | performed at [facility], [address] | | LAB | | | | [address] [place], | | | | | | [place] [address] | | | | + + +---- + + + | MCHC | 33.0Comment: Testing | 32. 0 - 35.5 | EXTERNAL | | | | performed at [facility], [address] | g/d L | LAB | | | | [address], | | | | | | [place] [address] | | | | + + +---- + + + | RDW-CV | 56.0 (H)Comment: Testing | 37 - 53 fl | EXTERNAL | | | | performed at [facility], [address] | | LAB | | | | [address], | | | | | | [place] [address] | | | | + + +---- + + + | Platelet | 151Comment: Testing | 150 - 400 K/uL | EXTERNAL | | | Count | performed at [facility], [address] | | LAB | | | Plasma | [address], | | | | | | [place] [address] | | | | + + +---- + + + | MPV | 11.7Comment: Testing | fl | EXTERNAL | | | | performed at [facility], [address] | | LAB | | | | [address], | | | | | | [place] [address] | | | | + + +---- + + + | Differentia | MANUALComment: Testing | | EXTERNAL | | | l Type | performed at [facility], [address] | | LAB | | | | [address] [place], | | | | | | [place] [address] | | | | + + +---- + + + | Segmented | 57Comment: Testing | % | EXTERNAL | | | Neutrophils | performed at [facility], [address] | | LAB | | | Manual | [address] [place], | | | | | | [place] [address] | | | | + + +---- + + + | % Bands | 26Comment: Testing | % | EXTERNAL | | | | performed at [facility], [address] | | LAB | | | | [address] [place], | | | | | | [place] [address] | | | | + + +---- + + + | % | 4Comment: Testing | % | EXTERNAL | | | Metamyelocy | performed at [facility], [address] | | LAB | | | [address]ma | [address], | | | | | | [place] [address] | | | | + + +---- + + + | Lymphocytes | 9Comment: Testing | % | EXTERNAL | | | Manual | performed at [facility], [address] | | LAB | | | | [address], | | | | | | [place] [address] | | | | + + +---- + + + | Monocytes | 4Comment: Testing | % | EXTERNAL | | | Manual | performed at [facility], [address] | | LAB | | | | [address], | | | | | | [place] [address] | | | | + + +---- + + + | Absolute | 10.53 (H)Comment: | 1.9 0 - 7.40 | EXTERNAL | | | Neutrophils | Testing performed at | K/u L | LAB | | | | [facility], [address] | | | | | | [place] | | | | | | [address] | | | | + + +---- + + + | Bands | 4.80 (H)Comment: Testing | 0.0 0 - 0.20 | EXTERNAL | | | Manual | performed at [facility], [address] | K/u L | LAB | | | | [address] [place], | | | | | | [place] [address] | | | | + + +---- + + + | Absolute | 0.74 (H)Comment: Testing | K/u L | EXTERNAL | | | Metamyelocy | performed at [facility], [address] | | LAB | | | [address] | [address] [place], | | | | | | [place] [address] | | | | + + +---- + + + | Absolute | 1.66Comment: Testing | 1.0 0 - 3.90 | EXTERNAL | | | Lymphocytes | performed at [facility], [address] | K/u L | LAB | | | | [address], | | | | | | [place] [address] | | | | + + +---- + + + | Absolute | 0.74Comment: Testing | 0.0 0 - 0.80 | EXTERNAL | | | Monocytes | performed at [facility], [address] | K/u L | LAB | | | | [address], | | | | | | [place] [address] | | | | + + +---- + + + | RBC | 2+Comment: | | EXTERNAL | | | Morphology | MACRO1+ANISONORMAL PLT | | LAB | | | | MORPHTesting performed | | | | | | at [facility], [address] | | | | | | [facility], | | | | | | [place] [address] | | | | | |Testing performed at [facility], [address] [facility], [place] [address] | | | | | | | [...] EXTERNAL | | | | performed at [facility];[address] | | LAB | | | | [address];[place], [place] | | | | | | [address] | | | | + + + [...] | | | | | performed at [facility];[address] | | | | | | [address];[place] | | | | | | [address] | | | | + + + [...] EXTERNAL | | | | performed at [facility];[address] | mmol/L | LAB | | | | [address];[place], [place] | | | | | | [address] | | | | + + + [...] EXTERNAL | | | | performed at [facility];[address] | mmol/L | LAB | | | | [address];[place] | | | | | | [address] | | | | + + + + + + | K | 4.4Comment: SPECIMEN | 3.5 - 4.9 | EXTERNAL | | | | SLIGHTLY | mmol/L | LAB | | | | HEMOLYZEDTesting | | | | | | performed at [facility];[address] | | | | | | [address];[place] | | | | | | [address] | | | | + + + + + + | Cl | 106Comment: Testing | 99 - 109 mmol/L | EXTERNAL | | | | performed at [facility];[address] | | LAB | | | | [address];[place] | | | | | | [address] | | | | + + + + + + | CO2 | 24Comment: Testing | 23 - 32 mmol/L | EXTERNAL | | | | performed at [facility];[address] | | LAB | | | | [address];[place] | | | | | | [address] | | | | + + + + + + | Anion Gap | 12Comment: Testing | 5 - 20 mmol/L | EXTERNAL | | | | performed at [facility];[address] | | LAB | | | | [address];[place] | | | | | | [address] | | | | + + + + + + | Glucose, | 103 (H)Comment: Testing | 65 - 99 mg/dL | EXTERNAL | | | Fasting | performed at [facility];[address] | | LAB | | | | [address];[place] | | | | | | [address] | | | | + + + + + + | BUN | 22Comment: Testing | 8 - 25 mg/dL | EXTERNAL | | | | performed at [facility];[address] | | LAB | | | | [address];[place] | | | | | | [address] | | | | + + + + + + | Creatinine | 1.9 (H)Comment: Testing | 0.50 - 1.00 | EXTERNAL | | | | performed at [facility];888 | mg/dL | LAB | | | | [address];[place] | | | | | | [address] | | | | + + + + + + | BUN/Creatin | 12Comment: Testing | | EXTERNAL | | | ine Ratio | performed at [facility];[address] | | LAB | | | | [address];[place] | | | | | | [address] | | | | + + + + + + | Calcium | 7.4 (L)Comment: Testing | 8.5 - 10.5 | EXTERNAL | | | | performed at [facility];888 | mg/dL | LAB | | | | [address];[place] | | | | | | [address] | | | | + + + + + + | Protein, | 6.5Comment: Testing | 6.3 - 8.2 g/dL | EXTERNAL | | | Total | performed at [facility];[address] | | LAB | | | | [address];[place] | | | | | | [address] | | | | + + + + + + | Albumin | 2.2 (L)Comment: Testing | 3.3 - 4.8 g/dL | EXTERNAL | | | | performed at [facility];[address] | | LAB | | | | [address];[place] | | | | | | [address] | | | | + + + + + + | Globulin | 4.4Comment: Testing | 1.3 - 4.9 g/dL | EXTERNAL | | | | performed at [facility];[address] | | LAB | | | | [address];[place] | | | | | | [address] | | | | + + + + + + | A/G Ratio | 0.5 (L)Comment: Testing | 1.0 - 2.4 | EXTERNAL | | | | performed at [facility];[address] | | LAB | | | | [address];[place] | | | | | | [address] | | | | + + + + + + | Bilirubin | 0.5Comment: Testing | 0.1 - 1.5 mg/dL | EXTERNAL | | | Total | performed at [facility];[address] | | LAB | | | | [address];[place] | | | | | | [address] | | | | + + + + + + | ALP, | 148 (H)Comment: Testing | 35 - 115 U/L | EXTERNAL | | | External | performed at [facility];[address] | | LAB | | | | [address];[place] | | | | | | [address] | | | | + + + + + + | AST | 41Comment: SPECIMEN | 10 - 45 U/L | EXTERNAL | | | | SLIGHTLY | | LAB | | | | HEMOLYZEDTesting | | | | | | performed at [facility];[address] | | | | | | [address];[place] | | | | | | [address] | | | | + + + + + + | ALT | 23Comment: Testing | 10 - 65 U/L | EXTERNAL | | | | performed at [facility];[address] | | LAB | | | | [address];[place] | | | | | | [address] | | | | + + + [...] | | | | | | at [facility];[address] | | | | | [address];[place] [address] | | | | + + + [...] WORKUP | | | Testing performed at [facility], [address] [place], [place] | | | [address] | | + + + + +---------+ [...] | | | | performed at [facility], [address] | | LAB | | | | [address], | | | | | | [place] [address] | | | | + + + + + + | Clarity | CLOUDYComment: Testing | | EXTERNAL | | | | performed at [facility], [address] | | LAB | | | | [place], | | | | | | [place] [address] | | | | + + + + + + | Specific | 1.015Comment: Testing | 1.002 - 1.030 | EXTERNAL | | | Wilson | performed at [facility], [address] | | LAB | | | | [address], | | | | | | [place] [address] | | | | + + + + + + | Leukocyte | SMALL (A)Comment: | | EXTERNAL | | | Esterase, | Testing performed at | | LAB | | | Urine | [facility], [address] | | | | | | [place] | | | | | | [address] | | | | + + + + + + | Nitrite, | NEGATIVEComment: Testing | | EXTERNAL | | | Urine | performed at [facility], [address] | | LAB | | | | [address], | | | | | | [place] [address] | | | | + + + + + + | Urobilinoge | 0.2Comment: Testing | mg/dL | EXTERNAL | | | n, Urine | performed at [facility], [address] | | LAB | | | | [address], | | | | | | [place] [address] | | | | + + + + + + | Protein, | 100 (A)Comment: Testing | mg/dL | EXTERNAL | | | Urine | performed at [facility], [address] | | LAB | | | | [place] [address], | | | | | | [place] [address] | | | | + + + + + + | pH, Urine | 6.5Comment: Testing | 5.0 - 8.0 | EXTERNAL | | | | performed at [facility], [address] | | LAB | | | | [place] [address], | | | | | | [place] [address] | | | | + + + + + + | Blood, | MODERATE (A)Comment: | | EXTERNAL | | | Urine | Testing performed at | | LAB | | | | [facility], [address] | | | | | | [place] | | | | | | [address] | | | | + + + + + + | Ketones | NEGATIVEComment: Testing | mg/dL | EXTERNAL | | | | performed at [facility], [address] | | LAB | | | | [address], | | | | | | [place] [address] | | | | + + + + + + | Bilirubin, | NEGATIVEComment: Testing | | EXTERNAL | | | Urine | performed at [facility], [address] | | LAB | | | | [address], | | | | | | [place] [address] | | | | + + + + + + | Glucose, | NEGATIVEComment: Testing | mg/dL | EXTERNAL | | | Urine | performed at [facility], [address] | | LAB | | | | [address], | | | | | | [place] [address] | | | | + + + [...] | | | | | [place] [address] | | | | + + + + + + | RBC, UA | 1-5Comment: Testing | 0 - 5 /hpf | EXTERNAL | | | | performed at [facility], [address] | | LAB | | | | [address], | | | | | | [place] [address] | | | | + + + + + + | Epithelial | 0-2Comment: Testing | /lpf | EXTERNAL | | | Cells | performed at [facility], [address] | | LAB | | | | [address], | | | | | | [place] [address] | | | | + + + + + + | Bacteria, | TRACE (A)Comment: | | EXTERNAL | | | UA | Testing performed at | | LAB | | | | [facility], [address] | | | | | | [place] | | | | | | [address] | | | | + + + + + + | Urinalysis | CULTURE TO | | EXTERNAL | | | Comments | FOLLOWComment: Testing | | LAB | | | | performed at [facility], [address] | | | | | | [place] [address], | | | | | | [place] [address] | | | | + + + [...] EXTERNAL | | | | performed at [facility];888 | mg/dL | LAB | | | | [address];[place] | | | | | | [address] | | | | + + + [...] LAB | | C.diffAbnormal Testing performed at [facility];[address] [place] [address] | | | [phone] NAP1 BI 027 NAP1 BI | | | PRESUMPTIVE NEGATIVE Detection of 027 NAP1 BI strains of C. difficile | | | is presumptive and for epidemiological purposes and not intended to | | | guide or monitor treatment for C. difficile infections. Testing | | | performed at [facility];[address] [place] [address];[place] [address] | | + + + + +---------+ [...] EXTERNAL | | | | performed at [facility];[address] | mmol/L | LAB | | | | [address];[place], [place] | | | | | | [address] | | | | + + + [...] | | | | | | at [facility];[address] | | | | | | [facility];[place] [address] | | | | + + + [...] EXTERNAL | | | | performed at [facility];[address] | | LAB | | | | [address];[place], [place] | | | | | | [address] | | | | + + + [...] | | | | | | ACUTE AR Testing | | | | | | performed at [facility];[address] | | | | | | [facility];[place], [place] | | | | | | [address] | | | | + + + [...] K/uL | LAB | | | | [facility];[address] | | | | | | [place] [address] | | | | + + + + + + | RED CELL | 3.66 (L)Comment: Testing | 3.70 - 5.10 | EXTERNAL | | | COUNT | performed at [facility];[address] | M/uL | LAB | | | | [address];[place] | | | | | | [address] | | | | + + + + + + | Hgb | 12.6Comment: Testing | 11.3 - 15.5 | EXTERNAL | | | | performed at [facility];[address] | g/dL | LAB | | | | [address];[place] | | | | | | [address] | | | | + + + + + + | Hematocrit, | 38.9Comment: Testing | 34.0 - 46.0 % | EXTERNAL | | | POC | performed at [facility];[address] | | LAB | | | | [address];[place] | | | | | | [address] | | | | + + + + + + | MCV | 106.3 (H)Comment: | 80.0 - 100.0 fl | EXTERNAL | | | | Testing performed at | | LAB | | | | [facility];[address] | | | | | [address];[place] [address] | | | | + + + + + + | MCH | 34.3 (H)Comment: Testing | 27.0 - 34.0 pg | EXTERNAL | | | | performed at [facility];[address] | | LAB | | | | [address];[place] | | | | | | [address] | | | | + + + + + + | MCHC | 32.3Comment: Testing | 32.0 - 35.5 | EXTERNAL | | | | performed at [facility];[address] | g/dL | LAB | | | | [address];[place] | | | | | | [address] | | | | + + + + + + | RDW-CV | 54.7 (H)Comment: Testing | 37 - 53 fl | EXTERNAL | | | | performed at [facility];[address] | | LAB | | | | [address];[place] | | | | | | [address] | | | | + + + + + + | Platelet | 167Comment: Testing | 150 - 400 K/uL | EXTERNAL | | | Count | performed at [facility];[address] | | LAB | | | Plasma | [address];[place] | | | | | | [address] | | | | + + + + + + | MPV | 10.6Comment: Testing | fl | EXTERNAL | | | | performed at [facility];[address] | | LAB | | | | [address];[place] | | | | | | [address] | | | | + + + + + + | Differentia | MANUALComment: Testing | | EXTERNAL | | | l Type | performed at [facility];[address] | | LAB | | | | [address];[place] | | | | | | [address] | | | | + + + + + + | Segmented | 54Comment: Testing | % | EXTERNAL | | | Neutrophils | performed at [facility];[address] | | LAB | | | Manual | [address];[place] | | | | | | [address] | | | | + + + + + + | % Bands | 18Comment: Testing | % | EXTERNAL | | | | performed at [facility];[address] | | LAB | | | | [address];[place] | | | | | | [address] | | | | + + + + + + | Lymphocytes | 16Comment: Testing | % | EXTERNAL | | | Manual | performed at [facility];[address] | | LAB | | | | [address];[place] | | | | | | [address] | | | | + + + + + + | Monocytes | 12Comment: Testing | % | EXTERNAL | | | Manual | performed at [facility];[address] | | LAB | | | | [address];[place] | | | | | | [address] | | | | + + + + + + | Absolute | 10.69 (H)Comment: | 1.90 - 7.40 | EXTERNAL | | | Neutrophils | Testing performed at | K/uL | LAB | | | | [facility];[address] | | | | | [address];[place] [address] | | | | + + + + + + | Bands | 3.56 (H)Comment: Testing | 0.00 - 0.20 | EXTERNAL | | | Manual | performed at [facility];[address] | K/uL | LAB | | | | [address];[place] | | | | | | [address] | | | | + + + + + + | Absolute | 3.16Comment: Testing | 1.00 - 3.90 | EXTERNAL | | | Lymphocytes | performed at [facility];[address] | K/uL | LAB | | | | [address];[place] | | | | | | [address] | | | | + + + + + + | Absolute | 2.37 (H)Comment: Testing | 0.00 - 0.80 | EXTERNAL | | | Monocytes | performed at [facility];[address] | K/uL | LAB | | | | [address];[place] | | | | | | [address] | | | | + + + + + + | Platelet | ADEQUATEComment: Testing | | EXTERNAL | | | Estimate | performed at [facility];[address] | | LAB | | | | [address];[place] | | | | | | [address] | | | | + + + + + + | RBC | NORMAL PLT MORPHComment: | | EXTERNAL | | | Morphology | 1+ANISOTesting | | LAB | | | | performed at [facility];[address] | | | | | | [address];[place] | | | | | | [address] | | | | | | | [...] EXTERNAL | | | | performed at [facility];[address] | uIU/mL | LAB | | | | [address];[place], [place] | | | | | | [address] | | | | + + + [...] EXTERNAL | | | | performed at [facility];[address] | | LAB | | | | [address];[place], [place] | | | | | | [address] | | | | + + + [...] | | LAB | | | | [facility];[address] | | | | | | [address];[place] [address] | | | | + + + [...] EXTERNAL | | | | performed at [facility];[address] | | LAB | | | | [address];[place], [place] | | | | | | [address] | | | | + + + [...] EXTERNAL | | | | performed at [facility];[address] | | LAB | | | | [address];[place] | | | | | | [address] | | | | + + + [...] EXTERNAL | | | | performed at [facility];[address] | mmol/L | LAB | | | | [address];[place] | | | | | | [address] | | | | + + + + + + | K | 3.4 (L)Comment: Testing | 3.5 - 4.9 | EXTERNAL | | | | performed at [facility];[address] | mmol/L | LAB | | | | [address];[place] | | | | | | [address] | | | | + + + + + + | Cl | 101Comment: Testing | 99 - 109 mmol/L | EXTERNAL | | | | performed at [facility];[address] | | LAB | | | | [address];[place] | | | | | | [address] | | | | + + + + + + | CO2 | 27Comment: Testing | 23 - 32 mmol/L | EXTERNAL | | | | performed at [facility];[address] | | LAB | | | | [address];[place] | | | | | | [address] | | | | + + + + + + | Anion Gap | 12Comment: Testing | 5 - 20 mmol/L | EXTERNAL | | | | performed at [facility];[address] | | LAB | | | | [address];[place] | | | | | | [address] | | | | + + + + + + | Glucose, | 106 (H)Comment: Testing | 65 - 99 mg/dL | EXTERNAL | | | Fasting | performed at [facility];[address] | | LAB | | | | [address];[place] | | | | | | [address] | | | | + + + + + + | BUN | 18Comment: Testing | 8 - 25 mg/dL | EXTERNAL | | | | performed at [facility];[address] | | LAB | | | | [address];[place] | | | | | | [address] | | | | + + + + + + | Creatinine | 1.3 (H)Comment: Testing | 0.50 - 1.00 | EXTERNAL | | | | performed at [facility];[address] | mg/dL | LAB | | | | [address];[place] | | | | | | [address] | | | | + + + + + + | BUN/Creatin | 14Comment: Testing | | EXTERNAL | | | ine Ratio | performed at [facility];[address] | | LAB | | | | [address];[place] | | | | | | [address] | | | | + + + + + + | Calcium | 7.3 (L)Comment: Testing | 8.5 - 10.5 | EXTERNAL | | | | performed at [facility];888 | mg/dL | LAB | | | | [address];[place] | | | | | | [address] | | | | + + + + + + | Protein, | 7.9Comment: Testing | 6.3 - 8.2 g/dL | EXTERNAL | | | Total | performed at [facility];[address] | | LAB | | | | [address];[place] | | | | | | [address] | | | | + + + + + + | Albumin | 2.5 (L)Comment: Testing | 3.3 - 4.8 g/dL | EXTERNAL | | | | performed at [facility];[address] | | LAB | | | | [address];[place] | | | | | | [address] | | | | + + + + + + | Globulin | 5.4 (H)Comment: Testing | 1.3 - 4.9 g/dL | EXTERNAL | | | | performed at [facility];[address] | | LAB | | | | [address];[place] | | | | | | [address] | | | | + + + + + + | A/G Ratio | 0.5 (L)Comment: Testing | 1.0 - 2.4 | EXTERNAL | | | | performed at [facility];[address] | | LAB | | | | [address];[place] | | | | | | [address] | | | | + + + + + + | Bilirubin | 0.6Comment: Testing | 0.1 - 1.5 mg/dL | EXTERNAL | | | Total | performed at [facility];[address] | | LAB | | | | [address];[place] | | | | | | [address] | | | | + + + + + + | ALP, | 188 (H)Comment: Testing | 35 - 115 U/L | EXTERNAL | | | External | performed at [facility];[address] | | LAB | | | | [address];[place] | | | | | | [address] | | | | + + + + + + | AST | 51 (H)Comment: Testing | 10 - 45 U/L | EXTERNAL | | | | performed at [facility];[address] | | LAB | | | | [address];[place] | | | | | | [address] | | | | + + + + + + | ALT | 30Comment: Testing | 10 - 65 U/L | EXTERNAL | | | | performed at [facility];[address] | | LAB | | | | [address];[place] | | | | | | [address] | | | | + + + [...] | | | | | | at [facility];[address] | | [address];[place] [address] | | | | + + + [...] Conversion - 01/05/2019 4:32 AM PDT COLE [id number] yearsXR | | CHEST 1 VIEW01/28/2015 2:40 [...]
--- OUTSIDE RECORDS SUMMARY | ~2019-05-09 | XMS | Encounter Summary ---
Demographics + + + | Address | [address] | | | [place] [address] | + + + | Home Phone [...] Team Providers + +------+ + | Care Mobile Sales Consultant Name | Role | Phone | + +------+ + | Rick Osorio DO | PCP | | + +------+ + Encounter Details +--------+ + + + + | Date | Type | Department | Care Team | Description | +--------+ + + + + | 11/15/ | Orders Only | [facility] | Emil Oliva MD | | | 2014 | | NEPRHOLOGY [place] | [address] [facility] | | | | | [address] | [address], [place] | | | | | [address] [place], [place] | [address] | | | | | [address] | | | | | | [phone] | | | +--------+ + + + [...] | | | LAB | | | RW[place]AN | | | | | + + [...]
--- OUTSIDE RECORDS SUMMARY | ~2019-05-09 | XMS | Encounter Summary ---
Demographics + + + | Address | [address] | | | [place] [address] | + + + | Home Phone [...] + | Author | [facility] | | | and [place] | + + + | Organization | [facility] | | | [...] Team Providers + +------+ + | Care Front End Architect Name | Role | Phone | [...] [place], [place] | | | | | [place], [place] | [address] | | | | | [address] | | | | | | [phone] | | | +--------+ + + + [...] 0.03 m/s | | | MV Dec Freeborn: 9.74 m/s2 MV DecT: 91.63 ms MV E Billy: 0.89 | | | m/s MV E/A Ratio: 26.03 MV PHT: 26.57 ms MVA By PHT: 8.27 | | | cm2 Septal e': 0.06 m/s Septal E/e': 12.90 Lateral e': | | | 0.09 m/s Lateral E/e': 8.96 RAP: 5 mmHg RVSP: 17.59 mmHg | | | TR maxP.59 mmHg TR Vmax: 1.77 m/s Tank Builder Helper: NAIF | | | Authenticated by: Conor Kemphopkins Report Date/Time: -- | | | [id number]:[id number] | | + + + + + [...] cmLVPWd: 1.14 cmLVOT | | Area: 3.33 qr1IQAA Diam: 2.06 cm%FS: 26.43 %EF(Teich): 51.67 %ESV(Teich): [...] (A-L): | | 45.82 ml/m2LAAs A2C: 22.15 ei6GHLMC A-L A2C: 71.25 mlLALs A2C: 5.84 cmLAAs A4C: | | 28.64 cf1QLZAH A-L A4C: 104.24 mlLALs A4C: 6.68 cmRAAs: 14.65 js6ZMIPD A-L: | | 33.90 mlRAESV MOD: 34.21 mlRALs: 5.37 cmAV maxP.81 mmHgAV meanP.70 | | mmHgAV Vmax: 1.30 m/Sorin Vmean: 0.90 m/Sorin VTI: 24.74 cmAVA Vmax: 2.36 cm2AVA | | (VTI): 2.24 mm6DFFA maxP.41 mmHgLVOT meanP.88 mmHgLVSI Dopp: 27.63 | | ml/m2LVSV Dopp: 55.54 mlLVOT Vmax: 0.92 m/sLVOT Vmean: 0.64 m/sLVOT VTI: 16.66 | | cmMV A Billy: 0.03 m/sMV Dec Freeborn: 9.74 m/s2MV DecT: 91.63 msMV E Billy: 0.89 m/sMV | | E/A Ratio: 26.03MV PHT: 26.57 msMVA By PHT: 8.27 si8Bjiugv e': 0.06 m/sSeptal | | E/e': 12.90Lateral e': 0.09 m/sLateral E/e': 8.96RAP: 5 mmHgRVSP: 17.59 mmHgTR | | maxP.59 mmHgTR Vmax: 1.77 m/s Tank Builder Helper: DHAuthenticated by: Conor | | [facility] Date/Time: -- [id number]:51:12 IMPRESSION: 1. The left ventricle is | [...] A Billy: 0.03 m/s | |MV Dec Freeborn: 9.74 m/s2 | |MV DecT: 91.63 ms [...] |TR Vmax: 1.77 m/s | | | |Tank Builder Helper: NAIF | |Authenticated by: Conor Garcia | |Report Date/Time: -- [id number]:51:12 | | | |IMPRESSION: | |1. The [...]
--- OUTSIDE RECORDS SUMMARY | ~2019-05-09 | XMS | Clinical Summary ---
Demographics + + + | Address | [address] | | | [place] [address] | + + + | Home Phone | | + + + | Preferred Language | Unknown | + + + | Marital Status | Unknown | + + + | Nondenominational Affiliation | Unknown | + + + | Race | Unknown | + + + | Ethnic Group | Unknown | + + + Author + + + | Author | [facility] | + + + | Organization | [facility] | + + + | Address | Unknown | + + + | Phone | Unavailable | + + + Care Team Providers + +------+ + | Care Clinical Marketing Manager Name | Role | Phone | + +------+ + PCP | Unavailable | + +------+ + Source Comments JAYDEN is fully live on both EpicCare Ambulatory and EpicCare InPatient.[facility] Allergies Not on File Medications [...]
--- OUTSIDE RECORDS SUMMARY | ~2019-05-09 | XMS | Encounter Summary ---
Demographics + + + | Address | [address] | | | [place] [address] | + + + | Home Phone [...] Team Providers + +------+ + | Care Bulldozer Engineer Name | Role | Phone | + +------+ + | Yovani Santana MD | PCP | | + +------+ + Encounter Details +--------+ + + + + | Date | Type | Department | Care Team | Description | +--------+ + + + + | 05/10/ | Hospital | [facility] | Gary Melendez, | Hypoxemia; | | 2014 | Encounter | MED CTR XRAY [address] | MD [address] | Restrictive lung | | | | [place] | [place], [place] | disease | | | | [place] [address] | [address] | | | | | [phone] | | | | | | | [...] + | MISCELLANEOUS LAB | | | [phone] | + +---------+ + + | MISCELANIOUS LAB | | | [phone] | + +---------+ + + documented in this encounter Visit Diagnoses + + | Diagnosis | + + | Hypoxemia | + + | Restrictive lung disease Other diseases of lung, not elsewhere classified | + + documented in this encounter"
--- OUTSIDE RECORDS SUMMARY | ~2019-05-09 | XMS | Encounter Summary ---
Demographics + + + | Address | [address] | | | [place] [address] | + + + | Home Phone [...] Team Providers + +------+ + | Care Esthetician Name | Role | Phone | + +------+ + | Yovani Santana MD | PCP | | + +------+ + Encounter Details +--------+ + + + + | Date | Type | Department | Care Team | Description | +--------+ + + + + | 03/26/ | Hospital | [facility] | Melendez, Gary, | Hypoxemia; Kyphosis | | 2014 | Encounter | MED CTR PULMONARY | MD [address] | deformity of spine | | | | FUNCTION [address] | [place], [place] | | | | | [place], | [address] | | | | | [place] [address] | | | | | | [phone] | | | +--------+ + + + [...] Melendez MD 03/27/2014 13:24 | | | [facility] | | + + + [...] 03/26/14Electronically signed by: Gary Melendez MD 03/27/2014 13:24[facility] | | [facility] | | | |No prior pulmonary function tests available for comparison. | | | |Test performed: 03/26/14 | |Electronically signed by: Gary Melendez MD 03/27/2014 13:24 | |[facility] | + + documented in this encounter Visit Diagnoses + + | Diagnosis | + + | Hypoxemia | + + | Kyphosis deformity of spine Kyphosis (acquired) (postural) | + + documented in this encounter"
--- OUTSIDE RECORDS SUMMARY | ~2019-05-09 | XMS | Encounter Summary ---
Demographics + + + | Address | [address] | | | [place] [address] | + + + | Home Phone [...] Team Providers + +------+ + | Care Hearing Dog Trainer Name | Role | Phone | + [...] + + | 03/26/ | Office | [facility] | Gary Melendez, | Hypoxemia (Primary | | 2014 | Visit | PULMONARY [address] | MD [address] | Dx); Kyphosis | | | | [place], | [place], [place] | deformity of spine; | | | | [place] [address] | [address] | Restrictive lung | | | | [phone] | | disease | +--------+---------+ + + [...] + | MISCELLANEOUS LAB | | | [phone] | + +---------+ + + | MISCELANIOUS LAB | | | [phone] | + +---------+ + + documented in this encounter Visit Diagnoses + + | Diagnosis | + + | Hypoxemia - Primary | + + | 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
--- OUTSIDE RECORDS SUMMARY | ~2019-05-09 | XMS | Encounter Summary ---
Demographics + + + | Address | [address] | | | [place] [address] | + + + | Home Phone [...] + | Author | [facility] | | | and [place] | + + + | Organization | [facility] | | | and [...] Team Providers + +------+ + | Care Labor Expediter Name | Role | Phone | + [...] [address] | Dx) | | | | [place], | [place], [place] | | | | | [place] [address] | [address] | | | | | [phone] | | | +--------+ + + + [...]
--- OUTSIDE RECORDS SUMMARY | ~2019-05-09 | XMS | Encounter Summary ---
Demographics + + + | Address | [address] | | | [place] [address] | + + + | Home Phone [...] Team Providers + +------+ + | Care Baggage Porter Head Name | Role | Phone | + +------+ + | Rick Osorio DO | PCP | | + +------+ + Encounter Details +--------+ + + + + | Date | Type | Department | Care Team | Description | +--------+ + + + + | 12/05/ | Orders Only | [facility] | Emil Oliva MD | | | 2013 | | NEPRHOLOGY [place] | [address] [facility] | | | | | [address] | [address] [place], [place] | | | | | [address] [place], [place] | [address] | | | | | [address] | | | | | | [phone] | | | +--------+ + + + [...]
--- OUTSIDE RECORDS SUMMARY | ~2019-05-09 | XMS | Encounter Summary ---
Demographics + + + | Address | [address] | | | [place] [address] | + + + | Home Phone [...] Team Providers + +------+ + | Care Washing Machine Loader And Puller Name | Role | Phone | + +------+ + | Rick Osorio DO | PCP | | + +------+ + Encounter Details +--------+ + + + + | Date | Type | Department | Care Team | Description | +--------+ + + + + | 06/04/ | Orders Only | [facility] | Emil Oliva MD | | | 2013 | | NEPHROLOGY [place] | [address] | | | | | [address] | [address] [place], [place] | | | | | [address] [place], [place] | [address] | | | | | [phone] | | | | | | [phone] | | | +--------+ + + + [...] | | | LAB | | | [facility] | | | | | + +-------+ [...]
--- OUTSIDE RECORDS SUMMARY | ~2019-05-09 | XMS | Encounter Summary ---
Demographics + + + | Address | [address] | | | [place] [address] | + + + | Home Phone [...] Team Providers + +------+ + | Care Mail Clerk Name | Role | Phone | + +------+ + | Rick Osorio DO | PCP | | + +------+ + Encounter Details +--------+ + + + + | Date | Type | Department | Care Team | Description | +--------+ + + + + | 12/05/ | Orders Only | [facility] | Emil Oliva MD | | | 2013 | | NEPRHOLOGY [place] | [address] [facility] | | | | | [address] | [address] [place], [place] | | | | | [address] [place], [place] | [address] | | | | | [address] | | | | | | [phone] | | | +--------+ + + + [...]
--- OUTSIDE RECORDS SUMMARY | ~2019-05-09 | XMS | Encounter Summary ---
Demographics + + + | Address | [address] | | | [place] [address] | + + + | Home Phone [...] Providers + +------+ + | Care Mail Manager Name | Role | Phone | + +------+ + | Rick Osorio DO | PCP | | + +------+ + Encounter Details +--------+ + + + + | Date | Type | Department | Care Team | Description | +--------+ + + + + | 11/15/ | Orders Only | [facility] | Emil Oliva MD | | | 2014 | | NEPHROLOGY [place] | [address] | | | | | [address] | [address] [place], [place] | | | | | [address] [place], [place] | [address] | | | | | [address] | | | | | | [phone] | | | +--------+ + + + [...]
--- OUTSIDE RECORDS SUMMARY | ~2019-05-09 | XMS | Encounter Summary ---
Demographics + + + | Address | [address] | | | [place] [address] | + + + | Home Phone [...] Providers + +------+ + | Care Line Pilot Name | Role | Phone | + [...] [address] | Dx) | | | | [place], | [place], [place] | | | | | [place] [address] | [address] | | | | | [phone] | | | +--------+ + + + [...]
--- OUTSIDE RECORDS SUMMARY | ~2019-05-09 | XMS | Encounter Summary ---
Demographics + + + | Address | [address] | | | [place] [address] | + + + | Home Phone | | + + + | Preferred Language | Unknown | + + + | Marital Status | Single | + + + | Roman Catholic Affiliation | 1041 | + + [...] Team Providers + +------+ + | Care Aerospace Manager Name | Role | Phone | + +------+ + | Rick Osorio DO | PCP | | + +------+ + Encounter Details +--------+ + + + + | Date | Type | Department | Care Team | Description | +--------+ + + + + | 11/15/ | Orders Only | [facility] | Emil Oliva MD | | | 2014 | | NEPRHOLOGY [place] | [address] | | | | | [address] | [address] [place], [place] | | | | | [address] [place], [place] | [address] | | | | | [address] | | | | | | [phone] | | | +--------+ + + + [...] | | | LAB | | | ETHIOPIAN | | | | | + + [...]
--- OUTSIDE RECORDS SUMMARY | ~2019-05-09 | XMS | Encounter Summary ---
Demographics + + + | Address | [address] | | | [place] [address] | + + + | Home Phone | | + + + | Preferred Language | Unknown | + + + | Marital Status | Unknown | + + + | Scientologist Affiliation | Unknown | + + + | Race | Unknown | + + + | Ethnic Group | Unknown | + + + Author + + + | Author | [facility] | + + + | Organization | [facility] | + + + | Address | Unknown | + + + | Phone | Unavailable | + + + Care Team Providers + +------+ + | Care Vice President Diversity Name | Role | Phone | + +------+ + PCP | Unavailable | + +------+ + Reason for Visit +--------+ + | Reason | Comments | +--------+ + | Sepsis | | +--------+ + Encounter Details +--------+ + + + + | Date | Type | Department | Care Team | Description | +--------+ + + + + | 01/28/ | Emergency | [facility] Emergency | | | | 2014 | | Department [address] | | | | | [address] | | | | | | [facility] | | | | | | [place], [place] | | | | | | [address] | | | | | | [phone] | | | +--------+ + + + [...]
--- OUTSIDE RECORDS SUMMARY | ~2019-05-09 | XMS | Encounter Summary ---
Demographics + + + | Address | [address] | | | [place] [address] | + + + | Home Phone [...] + + | Author | [facility] | | | and [place] | + + + | Organization | [facility] | | | [...] Team Providers + +------+ + | Care Creche Attendant Name | Role | Phone | [...] | | | | | [address] | [address] [place], [place] | | | | | [address] [place], [place] | [address] | | | | | [address] | | | | | | [phone] | | | +--------+ + + + [...] | | | LAB | | | [facility] | | | | | + +-------+ [...]
--- OUTSIDE RECORDS SUMMARY | ~2019-05-09 | XMS | Encounter Summary ---
Demographics + + + | Address | [address] | | | [place] [address] | + + + | Home Phone [...] Team Providers + +------+ + | Care Overlock Operator Name | Role | Phone | [...] + | 05/10/ | Office | [facility] | Gary Melendez, | Restrictive lung | | 2013 | Visit | PULMONARY [address] | MD [address] | disease (Primary | | | | [place], | [place], [place] | Dx); Hypoxemia; | | | | [place] [address] | [address] | Kyphosis deformity | | | | [phone] | | of spine | +--------+---------+ + [...] exercise, and stress management. In some [facility], a lung transplant is an option. Your healthcare team may include: A primary care provider,such as your family doctor. A residential program manager,a specialist in lung problems. A pulmonary nurse specialistwho helps you understand and carry out your treatment. A pulmonary rehabilitation specialistwho helps you gain strength through exercise. A social workerwho helps with your daily needs, family life, and stress. [id number] [employer]. [address] [place] [address]. All righ ts reserved. This information is [...]
--- OUTSIDE RECORDS SUMMARY | ~2019-05-09 | XMS | Encounter Summary ---
Demographics + + + | Address | [address] | | | [place] [address] | + + + | Home Phone [...] Team Providers + +------+ + | Care Pipeline Dispatch Operator Name | Role | Phone | [...] + | 05/10/ | Office | [facility] | Gary Melendez, | Restrictive lung | | 2013 | Visit | PULMONARY [address] | MD [address] | disease (Primary | | | | [place], | [place], [place] | Dx); Hypoxemia; | | | | [place] [address] | [address] | Kyphosis deformity | | | | [phone] | | of spine | +--------+---------+ + [...] techniques, exercise, and stress management. In some [facility], a lung transplant is an option. Your healthcare team may include: A primary care provider,such as your family doctor. A alumni relations coordinator,a specialist in lung problems. A pulmonary nurse specialistwho helps you understand and carry out your treatment. A pulmonary rehabilitation specialistwho helps you gain strength through exercise. A social workerwho helps with your daily needs, family life, and stress. [id number] [employer]. [address] [place] [address]. All righ ts reserved. This information is [...]
--- OUTSIDE RECORDS SUMMARY | ~2019-05-09 | XMS | Encounter Summary ---
Demographics + + + | Address | [address] | | | [place] [address] | + + + | Home Phone [...] Team Providers + +------+ + | Care Career Portals Teacher Name | Role | Phone | [...] [place], [place] | | | | | [place], [place] | [address] | | | | | [address] | | | | | | [phone] | | | +--------+ + + + [...] 0.03 m/s | | | MV Dec Hamblen: 9.74 m/s2 MV DecT: 91.63 ms MV E Billy: 0.89 | | | m/s MV E/A Ratio: 26.03 MV PHT: 26.57 ms MVA By PHT: 8.27 | | | cm2 Septal e': 0.06 m/s Septal E/e': 12.90 Lateral e': | | | 0.09 m/s Lateral E/e': 8.96 RAP: 5 mmHg RVSP: 17.59 mmHg | | | TR maxP.59 mmHg TR Vmax: 1.77 m/s Abrasive Mixer: NAIF | | | Authenticated by: Conor Kemprichland Report Date/Time: -- | | | [id number] | | + + + + + [...] cmLVPWd: 1.14 cmLVOT | | Area: 3.33 [id number] Diam: 2.06 cm%FS: 26.43 %EF(Teich): 51.67 %ESV(Teich): [...] (A-L): | | 45.82 ml/m2LAAs A2C: 22.15 [id number] A-L A2C: 71.25 mlLALs A2C: 5.84 cmLAAs A4C: | | 28.64 [id number] A-L A4C: 104.24 mlLALs A4C: 6.68 cmRAAs: 14.65 [id number] A-L: | | 33.90 mlRAESV MOD: 34.21 mlRALs: 5.37 cmAV maxP.81 mmHgAV meanP.70 | | mmHgAV Vmax: 1.30 m/Sorin Vmean: 0.90 m/Sorin VTI: 24.74 cmAVA Vmax: 2.36 cm2AVA | | (VTI): 2.24 se1RMUG maxP.41 mmHgLVOT meanP.88 mmHgLVSI Dopp: 27.63 | | ml/m2LVSV Dopp: 55.54 mlLVOT Vmax: 0.92 m/sLVOT Vmean: 0.64 m/sLVOT VTI: 16.66 | | cmMV A Billy: 0.03 m/sMV Dec Hamblen: 9.74 m/s2MV DecT: 91.63 msMV E Billy: 0.89 m/sMV | | E/A Ratio: 26.03MV PHT: 26.57 msMVA By PHT: 8.27 gn4Scpsyr e': 0.06 m/sSeptal | | E/e': 12.90Lateral e': 0.09 m/sLateral E/e': 8.96RAP: 5 mmHgRVSP: 17.59 mmHgTR | | maxP.59 mmHgTR Vmax: 1.77 m/s Abrasive Mixer: DHAuthenticated by: Conor | | [facility] Date/Time: -- [id number]:12 IMPRESSION: 1. The left ventricle is | [...] A Billy: 0.03 m/s | |MV Dec Hamblen: 9.74 m/s2 | |MV DecT: 91.63 ms [...] |TR Vmax: 1.77 m/s | | | |Abrasive Mixer: NAIF | |Authenticated by: Conor Garcia | |Report Date/Time: -- [id number]:12 | | | |IMPRESSION: | |1. The [...]
--- OUTSIDE RECORDS SUMMARY | ~2019-05-09 | XMS | Clinical Summary ---
Demographics + + + | Address | [address] | | | [place] [address] | + + + | Home Phone | | + + + | Preferred Language | Unknown | + + + | Marital Status | | + + + | Cheondoism Affiliation | 1041 | + + + | Race | Unknown | + + + | Ethnic Group | Unknown | + + + Author + + + | Author | [facility] (Historical as of | | | 01-06-19) | + + + | Organization | [facility] (Historical as of | | | 01-06-19) [...] Team Providers + +------+ + | Care Drier And Pulverizer Tender Name | Role | Phone | [...] | MA - GENERIC | MA-GEN | [id number] | Medica | | | | | [...] | | | | | | | [address] | + +--------+ +--------+ + +
--- OUTSIDE RECORDS SUMMARY | ~2019-05-09 | XMS | Clinical Summary ---
Demographics + + + | Address | [address] | | | [place] [address] | + + + | Home Phone [...] + + + | Author | [facility] | | | and [place] | + + + | Organization | [facility] | | [...] Team Providers + +------+ + | Care Biometrics Experimentalist Name | Role | Phone | + [...] | [facility] | [facility] | [id number] | 05/23/19 | | | Medica | [...] Person | Self | [birth year] | [address] | | Codie | al/Fam | | 1946 | [id number] | | | [place] | | | [address] (Home) | [place] | | | | | | | [address] | + +--------+ +--------+ + + Advance Directives + + + + + | Type | Date Recorded | Patient | Explanation | | | | Geoscience Technician | | + + + + + | Power of | | | | | Slaughterer Religious Ritual | | | | + + + + + | Advance | 05/10/2014 | | | | Directive | 12:33 PM | | | + + + + +
--- OUTSIDE RECORDS SUMMARY | ~2019-05-09 | XMS | Encounter Summary ---
Demographics + + + | Address | [address] | | | [place] [address] | + + + | Home Phone | | + + + | Preferred Language | Unknown | + + + | Marital Status | Single | + + + | Zoroastrian Affiliation | 1041 | + + + | Race | Unknown | + + + | Ethnic Group | Unknown | + + + Author + + + | Author | [facility] | | | and [place] | + + + | Organization | [facility] | | [...] Providers + +------+ + | Care Tower Excavator Operator Name | Role | Phone | + +------+ + | Yovani Santana MD | PCP | | + +------+ + Encounter Details +--------+ + + + + | Date | Type | Department | Care Team | Description | +--------+ + + + + | 01/14/ | Hospital | [facility] | Jennifer Hartman MD | Near syncope; | | 2015 - | Encounter | [facility] | [address] | Elevated troponin; | | | | CARE FLO[address] | [place] [address] | Non-STEMI (non-ST | | 01/19/ | | [address] | [phone] | elevated myocardial | | 2015 | | [place], [place] | | infarction) ([facility]); | | | | [id number] | | CKD (chronic kidney | | | | [phone] | | disease), | | | | | | unspecified stage; | | | | | | Leukocytosis; ZULAY | | | | | | (acute kidney | | | | | | injury) ([facility]); Liver | | | | | | replaced by | | | | | | transplant ([facility]) | +--------+ + + + + Social [...] Date of Service: 01/19/15 0753 Status: Signed Form Setter Steel Pan Forms: Emma Hardy MD (Physician) Related Notes: Original Note by Emma Hardy MD (Physician) filed at 01/19/[address] [facility] Service: Hospitalist Physician Discharge Summary Patient ID: oCle Ernst 1945 69 y.o. 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 The patient was taken off methadone about 3 weeks prior to admission. Pre vious creatinine was 1.38 and the patient was presented at [facility] in [place] , was found to have elevated troponin of 0.55 and noted to have creatinine of 2.4 and leukoc ytosis and was transferred for vgz-NN-jgstpznsl ID. HOSPITAL COURSE The patient was admitted with ewc-QK-acoxwzjqi ID. Cardiology consult was obtained. She was started [...] lipid-lowerin g therapy. The patient also has lruyk-vh-ekcgrxg kidney disease, stage III. Acute renal fail [...] to have severe protein calorie malnutrition and housemaid was consulted. Her blood pressures remain stable. [...] 1.5* 1.8 1.4* Invalid input(s): ABG Disposition: shelter facility Follow up: Ki De Jesus DO [address] [facility] [address] [place] [address] Schedule an appointment as soon as possible for a visit in 4 days Juan Ramey MD [address] [facility] [address] [facility] [address] Schedule an appointment as soon as possible for a visit in 1 week Follow up biopsy results Juju Riggins MD [address] [place] [address] Schedule an appointment as soon as [...] are the prescriptions that you need to pick remover. You may get the following medications from [...] summary. This entry has been created using [employer] Speech Recognition software and [employer]. The entry has been reviewed and there [...] Date of Service: 01/19/15 1300 Status: Signed Form Setter Steel Pan Forms: Shaista Lin RN (Registered Nurse) Pt discharged via wheel chair on 2 L of oxygen. To [facility] in [place]. Pt alert and o rientedX4. onver alessandro Transaction, Provider Unknown - 01/19/2015 8:20 AM PDT Case Management by PHUONG Roman at 01/19/15819 Author: PHUONG Roman Service: (none) Author Type: Clinical Business Analyst Filed: 01/19/15819 Date of Service: 01/19/15819 Status: Signed Form Setter Steel Pan Forms: PHUONG Roman (Clinical Business Analyst) Disposition: [facility] Transportation: facility van All orders, signed [...] 0625 Date of Service: 01/19/15412 Status: Signed Form Setter Steel Pan Forms: Yady Singh RN (Registered Nurse) Patient resting quietly all night. Medicated once for all over general pain. No further com plaints. VSS. onver alessandro Transaction, Provider Unknown - 01/18/2015 3:21 PM PDT Case Management by PHUONG Roman at 01/18/15 1521 Author: PHUONG Roman Service: (none) Author Type: Clinical Business Analyst Filed: 01/18/15 1521 Date of Service: 01/18/15 1521 Status: Signed Form Setter Steel Pan Forms: PHUONG Roman (Clinical Business Analyst) spoke w/ Will at [facility] who reports they can accept and transport pt tomorrow AM. PHUONG Roman osangela Kirk MD - 01/18/2015 3:10 PM PDT Progress Notes by Rosangela Steinberg MD at 01/18/15 1510 Author: Rosangela Steinberg MD Service: Infectious Disease Author Type: Physician Filed: 01/18/15 8412 Date of Service: 01/18/15 1510 Status: Signed Form Setter Steel Pan Forms: Rosangela Steinberg MD (Physician) [facility] Service: Infectious Disease Progress Note Hospital [...] diarrhea. Had initially presented to [facility] in [place] with similar complaints. Was foun d to have an elevated troponin. She was mainly admitted as a non-STEMI. Found to have a leuk ocytosis. Since patient is immunocompromised, she was started empirically on IV ceftriaxone. Chest x-ray showed no infiltrate. Patient denies any recent fevers or chills. She went to [facility] mainly becau se of syncope. Prior [...] extraluminal fluid collection abdomen pelvis without contrast [[id number]] Impression 1. Hypoinflated chest, but no evident infiltrate chest 1 view [[id number]] Impression 1. Indication for study and thus [...] 1445 Date of Service: 01/18/15748 Status: Signed Form Setter Steel Pan Forms: Emma Hardy MD (Physician) [facility] Service: Hospitalist Progress Note Hospital Day: [...] (HCC) ASSESSMENT & PLAN 1. Non-ST elevation ID. Possible demand ischemia. Will schedule for nuclear [...] AM This entry has been created using [employer] Speech Recognition software and [employer]. The entry has been reviewed and there may still exist sound alike word errors. onversion Trans action, Provider Unknown - 01/18/2015 5:16 AM PDT Nurse Progress Note by Yady Singh RN at 01/18/15515 Author: Yady Singh RN Service: (none) Author Type: Registered Nurse Filed: 01/18/152104 Date of Service: 01/18/15515 Status: Signed Form Setter Steel Pan Forms: Yady Singh RN (Registered Nurse) Pt taken [...] Date of Service: 01/17/15 162 Status: Signed Form Setter Steel Pan Forms: Jose Maria Espinal MD (Physician) Related Notes: Original Note by Jose Maria Espinal MD (Physician) filed at 01/17/152012 [facility] Service: Hospitalist Progress Note Pt: Cole Ernst AGE/SEX: 69 y.o. female : 1945 ROOM: [address] [place] [address] History of Present Illness: " The patient [...] EMS. Patient was taken to [facility] in [place]. Susie ent was noted to have a [...] borderline blood pressure. While at [facility] with systolic in the low 90s. Heart [...] CT done several days ago while in [place]. She also stat es that her vomiting and diarrhea have significantly improved. She denies any fevers, hemat emesis, melena, bright red blood per rectum, hematuria, dysuria, she denies any leg pain or swelling. No palpitations. She states she does have a history of "kidney disease" and was told that it was secondary to cyclosporine. However, she is not seen kidney specialist [facility] her liver transplant.".....per admitting MD/Dr. [...] as n oted. I urged the staff physician to introduce a hat so that sample [...] contrast. Prior study for comparison: None FINDINGS: Licensed Electrician 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 deg enerative changes of [...] LA/Ao: 1.57 D-E Excursion: 2.11 cm E-F Eureka: 0.09 m/s EPSS: 0.48 cm HR: 77.41 [...] TV A Billy: 0.66 m/s TV Dec E[place]ka: 4.36 m/s2 TV Dec Time: 184.41 ms TV E Billy: 0.80 m/s TV E/A Rat io: 1.21 Convalescent Sitter: NDERA Authenticated by: Gil Coronel MD Report Date/Time: [...] nutritional supplements as recommend ed by nutrition service/housemaid. Jose Maria Espinal MD 01/17/2015 4:29 PM onversion Transa ction, Provider Unknown - 01/17/2015 3:15 PM PDT Case Management by PHUONG Sandhu at 01/17/15 1515 Author: PHUONG Sandhu Service: (none) Author Type: Flower Stripper Filed: 01/17/15 1518 Date of Service: 01/17/155 Status: Signed Form Setter Steel Pan Forms: PHUONG Sandhu (Flower Stripper) 01/17/15 1500 Discharge Planning Evaluation Admitting Diagnosis Near syncope, elevated tropinin, non-stemi, CKD Anticipated Disposition Facility Type shelter facility Medicare Important Message (MEREDITH) Given Group Home [facility] Other (comment) ([facility]) METALS ANALYST met with Pt for discharge planning, on board with going to [facility] when medically ready. METALS ANALYST p/c to [facility] - will accept Pt when medically ready. [facility] (73 miles) [address] [place] [address], [place] Medical Technician: Will DCP: [facility] Transportation: [facility] Facility Van - Medical Technician: Will Medicare important message signed and copy in chart LUIS FOUNTAIN, Clinical Business Analyst [phone] cell Rosangela Zavala MD - 01/17/2015 1:11 PM PDT Progress Notes by Rosangela Steinberg MD at 01/17/15 1311 Author: Rosangela Steinberg MD Service: Infectious Disease Author Type: Physician Filed: 01/17/15 4329 Date of Service: 01/17/15 1311 Status: Signed Form Setter Steel Pan Forms: Rosangela Steinberg MD (Physician) [facility] Service: Infectious Disease Progress Note Hospital [...] diarrhea. Had initially presented to [facility] in [place] with similar complaints. Was foun d to have an elevated troponin. She was mainly admitted as a non-STEMI. Found to have a leuk ocytosis. Since patient is immunocompromised, she was started empirically on IV ceftriaxone. Chest x-ray showed no infiltrate. Patient denies any recent fevers or chills. She went to [facility] mainly becau se of syncope. Prior [...] extraluminal fluid collection abdomen pelvis without contrast [[id number]] Impression 1. Hypoinflated chest, but no evident infiltrate chest 1 view [[id number]] Impression 1. Indication for study and thus [...] 01/16/152137 Date of Service: 01/16/152127 Status: Signed Form Setter Steel Pan Forms: Juju Riggins MD (Physician) [facility] Service: Cardiology Progress Note Hospital Day: [...] Author: PHUONG Sandhu Service: (none) Author Type: Flower Stripper Filed: 01/16/156 Date of Service: 01/16/151642 Status: Signed Form Setter Steel Pan Forms: PHUONG Sandhu (Flower Stripper) 01/16/15 1600 Discharge Planning Evaluation Admitting Diagnosis Near syncope, elevated tropinin, non-stemi, CKD Anticipated Disposition Facility Type shelter facility Group Home Facility Other (comment) ([facility]) PHUONG received p/c from Will, admissions at [facility], states they are willi ng to accept Pt to their Group Home Facility, states their house physician will not pre scribe Methadone. Will states she will start authorization process with [employer] who is Managing the Medicare benefits. Will states the first 20 days are covered at 100% then day 21 will be $100.00 a day. DCP: [facility] or Home LUIS FOUNTAIN,Clinical Business Analyst [phone] cell Jose Maria Grimes MD - 01/16/2015 11:29 AM PDTFormatting of this note might be different from th e original. Progress Notes by Jose Maria Espinal MD at 01/16/15 1129 Author: Jose Maria Espinal MD Service: Hospitalist Author Type: Physician Filed: 01/17/15 1149 Date of Service: 01/16/15 1129 Status: Signed Form Setter Steel Pan Forms: Jose Maria Espinal MD (Physician) Related Notes: Original Note by Jose Maria Espinal MD (Physician) filed at 01/16/[address] [facility] Service: Hospitalist Progress Note Pt: Cole Ernst AGE/SEX: 69 y.o. female : 1945 ROOM: [address] [place] [address] History of Present Illness: " The patient [...] EMS. Patient was taken to [facility] in [place]. Susie ent was noted to have a [...] borderline blood pressure. While at [facility] with systolic in the low 90s. Heart [...] CT done several days ago while in [place]. She also stat es that her vomiting and diarrhea have significantly improved. She denies any fevers, hemat emesis, melena, bright red blood per rectum, hematuria, dysuria, she denies any leg pain or swelling. No palpitations. She states she does have a history of "kidney disease" and was told that it was secondary to cyclosporine. However, she is not seen kidney specialist [facility] her liver transplant.".....per admitting MD/Dr. [...] as n oted. I urged the staff physician to introduce a hat so that sample [...] contrast. Prior study for comparison: None FINDINGS: Licensed Electrician 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 deg enerative changes of [...] LA/Ao: 1.57 D-E Excursion: 2.11 cm E-F E[place]ka: 0.09 m/s EPSS: 0.48 cm HR: 77.41 [...] TV A Billy: 0.66 m/s TV Dec E[place]: 4.36 m/s2 TV Dec Time: 184.41 ms TV E Billy: 0.80 m/s TV E/A Rat io: 1.21 Convalescent Sitter: NEDRA Authenticated by: Gil Coronel MD Report [...] pressure has been showing increasing trend since ms toprolol has been held on admission due [...] Date of Service: 01/16/15 1102 Status: Signed Form Setter Steel Pan Forms: Natalio Benito PT (Physical Therapist) 01/16/15 1102 PT Last Visit PT Received On 01/16/15 Reason for Treatment Deconditioning;Other (comment) (NSTEMI; Syncope) Requires PT Follow Up Awaiting tx order Follow up PT Only? No PT Eval/Reassessment Date 01/16/15 Assistance Required 1 person Therapeutic Mentor Needed No Home Environment Type of Home Apartment ground level Home Exterior Layout Entry steps none Home Interior Layout Lives on main level with bedroom/bathroom Bathroom Shower/Tub Tub/shower unit Bathroom Toilet Standard Bathroom Equipment Shower stool;Grab bars in shower/bath;Grab bars outside of shower/bath Bathroom Accessibility Other (Comment) (Small bathroom) Home Equipment Walker 4 wheeled;Cane single point Prior Function Level of [place] Modified independent with functional mobility;Modified independent wi [...] (sitting in recliner w/ call light and RANCH MANAGER present) Restraints Initially in Place No [...] Eval/Reassessment Date 01/16/15 Assistance Required 1 person Therapeutic Mentor Needed No Precautions Other Precautions Fall Risk [...] support. Patient in the recli ner w/ RANCH MANAGER present at end of session, no [...] (sitting in recliner w/ call light and RANCH MANAGER present) Restraints Initially in Place No [...] Date of Service: 01/16/15 1045 Status: Signed Form Setter Steel Pan Forms: Nupur Tadeo MD (Physician) [facility] Service: Infectious Disease Progress Note Hospital [...] vomiting and diarrhea. Had initially presented to [facility] in [place] with similar complaints. Was found to have an elevated troponin . She was mainly admitted as a non-STEMI. Found to have a leukocytosis. Since patient is imm unocompromised, she was started empirically on IV ceftriaxone. Chest x-ray showed no infiltrate. Patient denies any recent fevers or chills. She went to [facility] mainly becau se of syncope. Prior [...] Author: PHUONG Sandhu Service: (none) Author Type: Flower Stripper Filed: 01/16/15 1042 Date of Service: 01/16/15 1030 Status: Signed Form Setter Steel Pan Forms: PHUONG Sandhu (Flower Stripper) 01/16/15 1000 Discharge Planning Evaluation Admitting Diagnosis Near syncope, elevated tropinin, non-stemi, CKD Anticipated Disposition Facility Type shelter facility METALS ANALYST met with Pt and discussed discharge planning, states she has concerns returning home at this time, as Pt resides alone. METALS ANALYST discussed rehab options, SNF vs Home Health vs Outpatient PT. Pt states her sister (Annie Tipton [phone] cell) assists with IADLs as Pt does not polo ojeda. Pt states she resides alone and has been doing ADLs on her own. Pt states she uses a 4WW with seat at home, then uses a cane when out of the home, stated, "I am a little vain" abou t using the 4WW in public. Pt is interested in [facility] [place], due to close proximity to her home. METALS ANALYST faxe d SNF referral. Pt is a [...] need SNF Anticipated DCP: Pending placement at [facility] [place] LUIS FOUNTAIN, Clinical Business Analyst [phone] cell Luisito Mejía - 01/16/2015 9:12 AM PDTFormatting of this note might be different from the or iginal. Progress Notes by Luisito Thomas MD at 01/16/15911 Author: Luisito Thomas MD Service: Nephrology Author Type: Physician Filed: 01/20/15 1907 Date of Service: 01/16/15911 Status: Signed Form Setter Steel Pan Forms: Luisito Thomas MD (Physician) [facility] Service: NEPHROLOGY PROGRESS Note Cole Ernst 69 y.o. [id number] female [facility] Day: LOS: 2 days The patient is a 69 y.o. 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 High CIWA this shift =4. Patient c/o generalized pain, treated with PRN [place] per orders. Patient observed to be sle eping, following PRN medication and repositioning. Patient continues to be NSR-ST on tele. Vitals stable. Will continue to monitor patient. ose Maria Black MD - 01/15/2015 3:19 PM PDTFormatting of this note might be different from armando tellez original. Progress Notes by Jose Maria Espinal MD at 01/15/15 0553 Author: Jose Maria Espinal MD Service: Hospitalist Author Type: Physician Filed: 01/16/15 0925 Date of Service: 01/15/151518 Status: Signed Form Setter Steel Pan Forms: Jose Maria Espinal MD (Physician) Related Notes: Original Note by Jose Maria Espinal MD (Physician) filed at 01/15/151939 [facility] Service: Hospitalist Progress Note Pt: Cole [...] EMS. Patient was taken to [facility] in [place]. Susie ent was noted to have a [...] borderline blood pressure. While at [facility] with systolic in the low 90s. Heart [...] CT done several days ago while in [place]. She also stat es that her vomiting and diarrhea have significantly improved. She denies any fevers, hemat emesis, melena, bright red blood per rectum, hematuria, dysuria, she denies any leg pain or swelling. No palpitations. She states she does have a history of "kidney disease" and was told that it was secondary to cyclosporine. However, she is not seen kidney specialist [facility] her liver transplant.".....per admitting MD/Dr. [...] contrast. Prior study for comparison: None FINDINGS: Licensed Electrician 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 deg enerative changes of [...] LA/Ao: 1.57 D-E Excursion: 2.11 cm E-F Eureka: 0.09 m/s EPSS: 0.48 cm HR: 77.41 [...] TV A Billy: 0.66 m/s TV Dec Eureka: 4.36 m/s2 TV Dec Time: 184.41 ms TV E Billy: 0.80 m/s TV E/A Rat io: 1.21 Convalescent Sitter: NEDRA Authenticated by: Gil Coronel MD Report [...] Elevated troponins, question underlying non ST elevation ID. Continue current medical th erapy. I appreciate [...] (none) Author Type: Registered Dietitian Filed: 01/15/15 1434 Date of Service: 01/15/151429 Status: Signed Form Setter Steel Pan Forms: Ronda Michaels RD (Registered Dietitian) 01/15/15 9545 Subjective Timepoint Admit Pt c/o In to [...] Estimated Energy Needs Total Energy Estimated Needs 2801-3757 kcal Method for Estimating Needs 25-30 kcal/kg [...] Date of Service: 01/15/15 1043 Status: Signed Form Setter Steel Pan Forms: Luisito Thomas MD (Physician) [facility] Service: NEPHROLOGY PROGRESS Note Cole Ernst 69 y.o. [id number] [id number] female [facility] Day: LOS: 1 day The patient is a 69 y.o. 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 See ED Record for Physician Inter pretation. 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 Riggins to clarify if heparin gtt should be continued after CT results. Order rec eived not to restart heparin drip at this time. ohnmaciej daivla, Jazz Caceres RP - 01/14/2015 10:27 PM PDTFormatting of this note might be different from t he original. Progress Notes by Jazz Rahman RPH at 01/14/152226 Author: Jazz Rahman RPH Service: (none) Author Type: Pharmacist Filed: 01/14/152226 Date of Service: 01/14/152226 Status: Signed Form Setter Steel Pan Forms: Jazz Rahman RPH (Pharmacist) Clinical Pharmacy Note - Renal Dose Adjustment Cole Ernst 69 y.o. female Ht Readings from Last 1 Encounters: 01/14/15 1.6 m (5' 3") Wt Readings from Last 1 Encounters: 01/14/15 89.6 kg (197 lb 8.5 oz) CREATININE Date Value Ref Range Status 01/14/2015 2.4* 0.50 - 1.00 mg/dL Final Comment: Testing performed at [facility];[address] [place] [address];[place] [address] CREATININE: 2.4 mg/dL ABNORMAL (01/14/15 1548) Estimated [...] Case Management by PHUONG Crump LICSW at 01/14/150 Author: PHUONG Crump LICSW Service: (none) Author Type: Clinical Business Analyst Filed: 01/14/151734 Date of Service: 01/14/151733 Status: Signed Form Setter Steel Pan Forms: PHUONG Crump LICSW (Clinical Business Analyst) 01/14/151727 Discharge Planning Evaluation Admitting Diagnosis Near syncope, elevated tropinin, non-stemi, CKD Readmission No Living Arrangements Alone Support Systems Family members;Friends/neighbors Type of Residence Private residence House type Apartment Bathrooms on 1st Floor 1-Full Independent with ADL's Yes Independent with Mobility No-comment Home Care Services No Mental Status Oriented Power of Barrel Bander No;Other (comment) Resources Transportation issues No Prescription Plan Yes Name of Pharmacy [facility] in [place], [place] Previous home health equipment Yes Anticipated Disposition Facility Type Home Met with patient and discussed discharge planning, Pt is a 69 y.o., female who reports skyleri mack alone. Patient reports her sister, Annie Tipton, will transport her home a t discharge. Patient's PCP is: KI DE JESUS (General) Patient's insurance:b [employer] & Medicare Coverage concerns: Medication coverage/concerns: Doreen Bedside Delivery: [facility] resources utilized / needed: TBD Assistance [...] preparation was | | | performed by [facility], [facility], [facility] | | | [place] [address] (Marksmanship Instructor: Martin | | Tariq Galvan M.D.; NINA#: [id number]). Diagnostician: Martin Galvan | | | Pathologist [...] | | | | performed at [facility], [address] | | LAB | | | | [address], | | | | | | [place] [address] | | | | + + + [...] | | | | performed at [facility], [address] | | LAB | | | | [address], | | | | | | [place] [address] | | | | + + + [...] | | | | | [place] [address] | | | | + + + + + + | Cl | 101Comment: Testing | 99 - 109 mmol/L | EXTERNAL | | | | performed at [facility], [address] | | LAB | | | | [address], | | | | | | [place] [address] | | | | + + + + + + | CO2 | 28Comment: Testing | 23 - 32 mmol/L | EXTERNAL | | | | performed at [facility], [address] | | LAB | | | | [address], | | | | | | [place] [address] | | | | + + + + + + | Anion Gap | 10Comment: Testing | 5 - 20 mmol/L | EXTERNAL | | | | performed at [facility], [address] | | LAB | | | | [address], | | | | | | [place] [address] | | | | + + + + + + | Glucose, | 107 (H)Comment: Testing | 65 - 99 mg/dL | EXTERNAL | | | Fasting | performed at [facility], [address] | | LAB | | | | [address], | | | | | | [place] [address] | | | | + + + + + + | BUN | 8Comment: Testing | 8 - 25 mg/dL | EXTERNAL | | | | performed at [facility], [address] | | LAB | | | | [address], | | | | | | [place] [address] | | | | + + + + + + | Creatinine | 0.96Comment: Testing | 0.50 - 1.00 | EXTERNAL | | | | performed at [facility], [address] | mg/dL | LAB | | | | [address], | | | | | | [place] [address] | | | | + + + + + + | BUN/Creatin | 8Comment: Testing | | EXTERNAL | | | ine Ratio | performed at [facility], [address] | | LAB | | | | [address], | | | | | | [place] [address] | | | | + + + + + + | Calcium | 8.6Comment: Testing | 8.5 - 10.5 | EXTERNAL | | | | performed at [facility], [address] | mg/dL | LAB | | | | [address], | | | | | | [place] [address] | | | | + + + [...] | | | | | at [facility], [address] | | | | | | [address], | | | | | | [place] [address] | | | | + + + [...] + + + | COLE ERNST 1945 [place] MYOCARDIAL PERFUSION SPECT - STRESS | | [...] - 01/05/2019 4:32 AM PDT COLE Corcoran SUJATA1945CO MYOCARDIAL | | PERFUSION SPECT - STRESS [...] | | | | performed at [facility], [address] | K/uL | LAB | | | | [address], | | | | | | [place] [address] | | | | + + + + + + | RED CELL | 3.41 (L)Comment: Testing | 3.70 - 5.10 | EXTERNAL | | | COUNT | performed at [facility], [address] | [address]/uL | LAB | | | | [address], | | | | | | [place] [address] | | | | + + + + + + | Hgb | 11.9Comment: Testing | 11.3 - 15.5 | EXTERNAL | | | | performed at [facility], [address] | g/dL | LAB | | | | [address], | | | | | | [place] [address] | | | | + + + + + + | Hematocrit, | 35.7Comment: Testing | 34.0 - 46.0 % | EXTERNAL | | | POC | performed at [facility], [address] | | LAB | | | | [address], | | | | | | [place] [address] | | | | + + + + + + | MCV | 104.6 (H)Comment: | 80.0 - 100.0 fl | EXTERNAL | | | | Testing performed at | | LAB | | | | [facility], [address] [facility] | | | | | | [place] | | | | | | [address] | | | | + + + + + + | MCH | 34.9 (H)Comment: Testing | 27.0 - 34.0 pg | EXTERNAL | | | | performed at [facility], [address] | | LAB | | | | [address], | | | | | | [place] [address] | | | | + + + [...] | | | | | [place] [address] | | | | + + + [...] | | | | | [place] [address] | | | | + + + + + + | MPV | 12.6Comment: Testing | fl | EXTERNAL | | | | performed at [facility], [address] | | LAB | | | | [address], | | | | | | [place] [address] | | | | + + + + + + | Differentia | AUTOMATEDComment: | | EXTERNAL | | | l Type | Testing performed at | | LAB | | | | [facility], [address] | | | | | | [place] | | | | | | [address] | | | | + + + [...] | | | | | [place] [address] | | | | + + + + + + | % Monocytes | 12.51Comment: Testing | % | EXTERNAL | | | | performed at [facility], [address] | | LAB | | | | [address], | | | | | | [place] [address] | | | | + + + + + + | % | 6.45Comment: Testing | % | EXTERNAL | | | Eosinophils | performed at [facility], [address] | | LAB | | | | [address], | | | | | | [place] [address] | | | | + + + + + + | % Basophils | 0.95Comment: Testing | % | EXTERNAL | | | | performed at [facility], [address] | | LAB | | | | [address], | | | | | | [place] [address] | | | | + + + + + + | Absolute | 3.26Comment: Testing | 1.90 - 7.40 | EXTERNAL | | | Segmented | performed at [facility], [address] | K/uL | LAB | | | Neutrophils | [address], | | | | | | [place] [address] | | | | + + + + + + | Absolute | 3.21Comment: Testing | 1.00 - 3.90 | EXTERNAL | | | Lymphocytes | performed at [facility], [address] | K/uL | LAB | | | | [address], | | | | | | [place] [address] | | | | + + + + + + | Absolute | 1.01 (H)Comment: Testing | 0.00 - 0.80 | EXTERNAL | | | Monocytes | performed at [facility], [address] | K/uL | LAB | | | | [address], | | | | | | [place] [address] | | | | + + + + + + | Absolute | 0.52 (H)Comment: Testing | 0.00 - 0.50 | EXTERNAL | | | Eosinophils | performed at [facility], [address] | [address] | LAB | | | | [address], | | | | | | [place] [address] | | | | + + + + + + | Absolute | 0.08Comment: Testing | 0.00 - 0.10 | EXTERNAL | | | Basophils | performed at [facility], [address] | K/uL | LAB | | | | [address], | | | | | | [place] [address] | | | | + + + + + + | RBC | RBC AND PLT MORPHOLOGY | | EXTERNAL | | | Morphology | APPEAR NORMALComment: | | LAB | | | | Testing performed at | | | | | | [facility], [address] [facility] | | | | | | [place] | | | | | | [address] | | | | + + + [...] | | | | performed at [facility], [address] | | LAB | | | | [address], | | | | | | [place] [address] | | | | + + + [...] | | | | | [place] [address] | | | | + + + [...] | | | | | [place] [address] | | | | + + + + + + | K | 3.8Comment: Testing | 3.5 - 4.9 | EXTERNAL | | | | performed at [facility], [address] | mmol/L | LAB | | | | [address], | | | | | | [place] [address] | | | | + + + + + + | Cl | 101Comment: Testing | 99 - 109 mmol/L | EXTERNAL | | | | performed at [facility], [address] | | LAB | | | | [address], | | | | | | [place] [address] | | | | + + + + + + | CO2 | 27Comment: Testing | 23 - 32 mmol/L | EXTERNAL | | | | performed at [facility], [address] | | LAB | | | [address], | | | | | | [place] [address] | | | | + + + + + + | Anion Gap | 12Comment: Testing | 5 - 20 mmol/L | EXTERNAL | | | | performed at [facility], [address] | | LAB | | | | [address], | | | | | | [place] [address] | | | | + + + + + + | Glucose, | 118 (H)Comment: Testing | 65 - 99 mg/dL | EXTERNAL | | | Fasting | performed at [facility], [address] | | LAB | | | | [address], | | | | | | [place] [address] | | | | + + + + + + | BUN | 7 (L)Comment: Testing | 8 - 25 mg/dL | EXTERNAL | | | | performed at [facility], [address] | | LAB | | | | [address], | | | | | | [place] [address] | | | | + + + + + + | Creatinine | 0.79Comment: Testing | 0.50 - 1.00 | EXTERNAL | | | | performed at [facility], [address] | mg/dL | LAB | | | | [address], | | | | | | [place] [address] | | | | + + + + + + | BUN/Creatin | 9Comment: Testing | | EXTERNAL | | | ine Ratio | performed at [facility], [address] | | LAB | | | | [address], | | | | | | [place] [address] | | | | + + + + + + | Calcium | 7.5 (L)Comment: Testing | 8.5 - 10.5 | EXTERNAL | | | | performed at [facility], [address] | mg/dL | LAB | | | | [address], | | | | | | [place] [address] | | | | + + + + + + | Protein, | 7.2Comment: Testing | 6.3 - 8.2 g/dL | EXTERNAL | | | Total | performed at [facility], [address] | | LAB | | | | [address], | | | | | | [place] [address] | | | | + + + + + + | Albumin | 3.1 (L)Comment: Testing | 3.3 - 4.8 g/dL | EXTERNAL | | | | performed at [facility], [address] | | LAB | | | | [address], | | | | | | [place] [address] | | | | + + + + + + | Globulin | 4.1Comment: Testing | 1.3 - 4.9 g/dL | EXTERNAL | | | | performed at [facility], [address] | | LAB | | | | [address], | | | | | | [place] [address] | | | | + + + + + + | A/G Ratio | 0.8 (L)Comment: Testing | 1.0 - 2.4 | EXTERNAL | | | | performed at [facility], [address] | | LAB | | | | [address], | | | | | | [place] [address] | | | | + + + + + + | Bilirubin | 0.5Comment: Testing | 0.1 - 1.5 mg/dL | EXTERNAL | | | Total | performed at [facility], [address] | | LAB | | | | [address], | | | | | | [place] [address] | | | | + + + + + + | ALP, | 76Comment: Testing | 35 - 115 U/L | EXTERNAL | | | External | performed at [facility], [address] | | LAB | | | | [address], | | | | | | [place] [address] | | | | + + + + + + | AST | 43Comment: Testing | 10 - 45 U/L | EXTERNAL | | | | performed at [facility], [address] | | LAB | | | | [address], | | | | | | [place] [address] | | | | + + + + + + | ALT | 25Comment: Testing | 10 - 65 U/L | EXTERNAL | | | | performed at [facility], [address] | | LAB | | | | [address], | | | | | | [place] [address] | | | | + + + [...] | | | | | [place] [address] | | | | + + + [...] | | | | performed at [facility];[address] | mmol/L | LAB | | | | [address];[place] | | | | | | [address] | | | | + + + [...] | | | | performed at [facility] | | LAB | | | | [facility];[place], [place] | | | | | | [address] | | | | + + + [...] | | | | performed at [facility];[address] | | LAB | | | | [address];[place] | | | | | | [address] | | | | + + [...] | | | | performed at [facility];[address] | mmol/L | LAB | | | | [address];[place], [place] | | | | | | [address] | | | | + + + [...] | | | | performed at [facility];[address] | | LAB | | | | [address];[place] | | | | | | [address] | | | | + + + [...] | | | | performed at [facility];[address] | | LAB | | | | [facility];[place], [place] | | | | | | [address] | | | | + + + [...] | | | | | [place] [address] | | | | + + + + + + | RED CELL | 3.40 (L)Comment: Testing | 3.70 - 5.10 | EXTERNAL | | | COUNT | performed at [facility], [address] | M/uL | LAB | | | | [address], | | | | | | [place] [address] | | | | + + + + + + | Hgb | 12.0Comment: Testing | 11.3 - 15.5 | EXTERNAL | | | | performed at [facility], [address] | g/dL | LAB | | | | [address], | | | | | | [place] [address] | | | | + + + + + + | Hematocrit, | 35.8Comment: Testing | 34.0 - 46.0 % | EXTERNAL | | | POC | performed at [facility], [address] | | LAB | | | | [address], | | | | | | [place] [address] | | | | + + + + + + | MCV | 105.3 (H)Comment: | 80.0 - 100.0 fl | EXTERNAL | | | | Testing performed at | | LAB | | | | [facility], [address] [facility] | | | | | | [place] | | | | | | [address] | | | | + + + + + + | MCH | 35.3 (H)Comment: Testing | 27.0 - 34.0 pg | EXTERNAL | | | | performed at [facility], [address] | | LAB | | | | [address], | | | | | | [place] [address] | | | | + + + + + + | MCHC | 33.6Comment: Testing | 32.0 - 35.5 | EXTERNAL | | | | performed at [facility], [address] | g/dL | LAB | | | | [address], | | | | | | [place] [address] | | | | + + + + + + | RDW-CV | 50.8Comment: Testing | 37 - 53 fl | EXTERNAL | | | | performed at [facility], [address] | | LAB | | | | [address], | | | | | | [place] [address] | | | | + + + + + + | Platelet | 149 (L)Comment: Testing | 150 - 400 K/uL | EXTERNAL | | | Count | performed at [facility], [address] | | LAB | | | Plasma | [address], | | | | | | [place] [address] | | | | + + + + + + | MPV | 13.0Comment: Testing | fl | EXTERNAL | | | | performed at [facility], [address] | | LAB | | | | [address], | | | | | | [place] [address] | | | | + + + + + + | Differentia | AUTOMATEDComment: | | EXTERNAL | | | l Type | Testing performed at | | LAB | | | | [facility], [address] | | | | | | [place] | | | | | | [address] | | | | + + + + + + | % Segmented | 52.08Comment: Testing | % | EXTERNAL | | | | performed at [facility], [address] | | LAB | | | Neutrophils | [address], | | | | | | [place] [address] | | | | + + + + + + | % | 32.37Comment: Testing | % | EXTERNAL | | | Lymphocytes | performed at [facility], [address] | | LAB | | | | [address], | | | | | | [place] [address] | | | | + + + + + + | % Monocytes | 10.07Comment: Testing | % | EXTERNAL | | | | performed at [facility], [address] | | LAB | | | | [address], | | | | | | [place] [address] | | | | + + + + + + | % | 4.41Comment: Testing | % | EXTERNAL | | | Eosinophils | performed at [facility], [address] | | LAB | | | | [address], | | | | | | [place] [address] | | | | + + + + + + | % Basophils | 1.07Comment: Testing | % | EXTERNAL | | | | performed at [facility], [address] | | LAB | | | | [address], | | | | | | [place] [address] | | | | + + + + + + | Absolute | 5.59Comment: Testing | 1.90 - 7.40 | EXTERNAL | | | Segmented | performed at [facility], [address] | K/uL | LAB | | | Neutrophils | [address], | | | | | | [place] [address] | | | | + + + + + + | Absolute | 3.48Comment: Testing | 1.00 - 3.90 | EXTERNAL | | | Lymphocytes | performed at [facility], [address] | K/uL | LAB | | | | [address], | | | | | | [place] [address] | | | | + + + + + + | Absolute | 1.08 (H)Comment: Testing | 0.00 - 0.80 | EXTERNAL | | | Monocytes | performed at [facility], [address] | [address] | LAB | | | | [address], | | | | | | [place] [address] | | | | + + + + + + | Absolute | 0.47Comment: Testing | 0.00 - 0.50 | EXTERNAL | | | Eosinophils | performed at [facility], [address] | K/uL | LAB | | | | [address], | | | | | | [place] [address] | | | | + + + + + + | Absolute | 0.12 (H)Comment: Testing | 0.00 - 0.10 | EXTERNAL | | | Basophils | performed at [facility], [address] | K/uL | LAB | | | | [address], | | | | | | [place] [address] | | | | + + + + + + | RBC | NORMAL RBC MORPHComment: | | EXTERNAL | | | Morphology | Testing performed at | | LAB | | | | [facility], [address] [facility] | | | | | | [place] | | | | | | [address] | | | | + + + + + + | Differentia | 1+ GIANT PLTComment: | | EXTERNAL | | | l Comments | Testing performed at | | LAB | | | | [facility], [address] | | | | | | [place] | | | | | | [address] | | | | + + + [...] | | | | | [place] [address] | | | | + + + + + + | K | 3.2 (L)Comment: Testing | 3.5 - 4.9 | EXTERNAL | | | | performed at [facility], [address] | mmol/L | LAB | | | | [address], | | | | | | [place] [address] | | | | + + + + + + | Cl | 100Comment: Testing | 99 - 109 mmol/L | EXTERNAL | | | | performed at [facility], [address] | | LAB | | | | [address], | | | | | | [place] [address] | | | | + + + + + + | CO2 | 28Comment: Testing | 23 - 32 mmol/L | EXTERNAL | | | | performed at [facility], [address] | | LAB | | | | [address], | | | | | | [place] [address] | | | | + + + + + + | Anion Gap | 13Comment: Testing | 5 - 20 mmol/L | EXTERNAL | | | | performed at [facility], [address] | | LAB | | | | [address], | | | | | | [place] [address] | | | | + + + + + + | Glucose, | 114 (H)Comment: Testing | 65 - 99 mg/dL | EXTERNAL | | | Fasting | performed at [facility], [address] | | LAB | | | | [address], | | | | | | [place] [address] | | | | + + + + + + | BUN | 8Comment: Testing | 8 - 25 mg/dL | EXTERNAL | | | | performed at [facility], [address] | | LAB | | | | [address], | | | | | | [place] [address] | | | | + + + + + + | Creatinine | 0.94Comment: Testing | 0.50 - 1.00 | EXTERNAL | | | | performed at [facility], [address] | mg/dL | LAB | | | | [address], | | | | | | [place] [address] | | | | + + + + + + | BUN/Creatin | 9Comment: Testing | | EXTERNAL | | | ine Ratio | performed at [facility], [address] | | LAB | | | | [address], | | | | | | [place] [address] | | | | + + + + + + | Calcium | 7.8 (L)Comment: Testing | 8.5 - 10.5 | EXTERNAL | | | | performed at [facility], [address] | mg/dL | LAB | | | | [address], | | | | | | [place] [address] | | | | + + + + + + | Protein, | 7.8Comment: Testing | 6.3 - 8.2 g/dL | EXTERNAL | | | Total | performed at [facility], [address] | | LAB | | | | [address], | | | | | | [place] [address] | | | | + + + + + + | Albumin | 3.3Comment: Testing | 3.3 - 4.8 g/dL | EXTERNAL | | | | performed at [facility], [address] | | LAB | | | [address], | | | | | | [place] [address] | | | | + + + + + + | Globulin | 4.5Comment: Testing | 1.3 - 4.9 g/dL | EXTERNAL | | | | performed at [facility], [address] | | LAB | | | [address], | | | | | | [place] [address] | | | | + + + + + + | A/G Ratio | 0.7 (L)Comment: Testing | 1.0 - 2.4 | EXTERNAL | | | | performed at [facility], [address] | | LAB | | | | [address], | | | | | | [place] [address] | | | | + + + + + + | Bilirubin | 0.4Comment: Testing | 0.1 - 1.5 mg/dL | EXTERNAL | | | Total | performed at [facility], [address] | | LAB | | | | [address], | | | | | | [place] [address] | | | | + + + + + + | ALP, | 83Comment: Testing | 35 - 115 U/L | EXTERNAL | | | External | performed at [facility], [address] | | LAB | | | | [address], | | | | | | [place] [address] | | | | + + + + + + | AST | 34Comment: Testing | 10 - 45 U/L | EXTERNAL | | | | performed at [facility], [address] | | LAB | | | | [address], | | | | | | [place] [address] | | | | + + + + + + | ALT | 24Comment: Testing | 10 - 65 U/L | EXTERNAL | | | | performed at [facility], [address] | | LAB | | | | [facility], | | | | | | [place] [address] | | | | + + + [...] W | | | | | | [facility], | | | | | | [place] [address] | | | | + + + [...] | | | | performed at [facility] | | | | | | [facility];[place], [place] | | | | | | [address] | | | | + + + [...] | | | | performed at [facility];[address] | | | | | | [address];[place], [place] | | | | | | [address] | | | | + + + [...] | | | | performed at [facility];[address] | mmol/L | LAB | | | | [address];[place], [place] | | | | | | [address] | | | | + + [...] | | | | performed at [facility];[address] | | LAB | | | | [address];[place], [place] | | | | | | [address] | | | | + + + [...] TESTING. | | | Testing performed at [facility], [address] | | | [place] [address] | | + + + + +---------+ [...] | Testing performed at | | | [facility], [address] [place] [address] | | + + + + +---------+ [...] NONE SEEN to 1+ Testing performed at [facility], [address] | | | [place] [address] | | + + + + +---------+ [...] antigen detected by ICA Testing performed at [facility], [address] | | | [facility] [place] [address] | | + + + + +---------+ [...] | | | | | [place] | | | | | | [address] | | | | + + + [...] [place] | | | | | | [place] [address] | | | | + + + [...] | | | | performed at [facility];[address] | | LAB | | | | [facility];[place], [place] | | | | | | [address] | | | | + + + + + + | CMV DNA | NOT DETECTEDComment: | | EXTERNAL | | | QUANTITATIV | Unit: IU/MLTesting | | LAB | | | E INTERP | performed at [facility], [address] | | | | | | [place] | | | | | | [place] [address] | | | | + + + + + + | CMV DNA, | NOT DETECTEDComment: | | EXTERNAL | | | Qual PCR | Unit: COPIES/MLTesting | | LAB | | | | performed at [facility], [address] | | | | | | [place] | | | | | | [place] [address] | | | | + + + [...] [place] | | | | | | [address] | | | | + + + [...] | | | | performed at [facility], [address] | K/uL | LAB | | | | [address], | | | | | | [place] [address] | | | | + + + + + + | RED CELL | 3.28 (L)Comment: Testing | 3.70 - 5.10 | EXTERNAL | | | COUNT | performed at [facility], [address] | M/uL | LAB | | | | [address], | | | | | | [place] [address] | | | | + + + + + + | Hgb | 11.6Comment: Testing | 11.3 - 15.5 | EXTERNAL | | | | performed at [facility], [address] | g/dL | LAB | | | | [address], | | | | | | [place] [address] | | | | + + + + + + | Hematocrit, | 34.5Comment: Testing | 34.0 - 46.0 % | EXTERNAL | | | POC | performed at [facility], [address] | | LAB | | | | [address], | | | | | | [place] [address] | | | | + + + + + + | MCV | 105.1 (H)Comment: | 80.0 - 100.0 fl | EXTERNAL | | | | Testing performed at | | LAB | | | | [facility], [address] | | | | | | [place] | | | | | | [address] | | | | + + + + + + | MCH | 35.3 (H)Comment: Testing | 27.0 - 34.0 pg | EXTERNAL | | | | performed at [facility], [address] | | LAB | | | | [address], | | | | | | [place] [address] | | | | + + + + + + | MCHC | 33.5Comment: Testing | 32.0 - 35.5 | EXTERNAL | | | | performed at [facility], [address] | g/dL | LAB | | | | [address], | | | | | | [place] [address] | | | | + + + + + + | RDW-CV | 50.8Comment: Testing | 37 - 53 fl | EXTERNAL | | | | performed at [facility], [address] | | LAB | | | | [address], | | | | | | [place] [address] | | | | + + + + + + | Platelet | 144 (L)Comment: Testing | 150 - 400 K/uL | EXTERNAL | | | Count | performed at [facility], [address] | | LAB | | | Plasma | [address], | | | | | | [place] [address] | | | | + + + + + + | MPV | 13.0Comment: Testing | fl | EXTERNAL | | | | performed at [facility], [address] | | LAB | | | | [address], | | | | | | [place] [address] | | | | + + + + + + | Differentia | AUTOMATEDComment: | | EXTERNAL | | | l Type | Testing performed at | | LAB | | | | [facility], [address] | | | | | | [place] | | | | | | [address] | | | | + + + + + + | % Segmented | 37.99Comment: Testing | % | EXTERNAL | | | | performed at [facility], [address] | | LAB | | | Neutrophils | [address], | | | | | | [place] [address] | | | | + + + + + + | % | 43.49Comment: Testing | % | EXTERNAL | | | Lymphocytes | performed at [facility], [address] | | LAB | | | | [address], | | | | | | [place] [address] | | | | + + + + + + | % Monocytes | 11.24Comment: Testing | % | EXTERNAL | | | | performed at [facility], [address] | | LAB | | | | [address], | | | | | | [place] [address] | | | | + + + + + + | % | 5.97Comment: Testing | % | EXTERNAL | | | Eosinophils | performed at [facility], [address] | | LAB | | | | [address], | | | | | | [place] [address] | | | | + + + [...] | | | | | [place] [address] | | | | + + + + + + | Absolute | 4.59 (H)Comment: Testing | 1.00 - 3.90 | EXTERNAL | | | Lymphocytes | performed at [facility], [address] | [address]/u[address] | LAB | | | | [address], | | | | | | [place] [address] | | | | + + + + + + | Absolute | 1.19 (H)Comment: Testing | 0.00 - 0.80 | EXTERNAL | | | Monocytes | performed at [facility], [address] | K/uL | LAB | | | | [address], | | | | | | [place] [address] | | | | + + + + + + | Absolute | 0.63 (H)Comment: Testing | 0.00 - 0.50 | EXTERNAL | | | Eosinophils | performed at [facility], [address] | K/uL | LAB | | | | [address], | | | | | | [place] [address] | | | | + + + + + + | Absolute | 0.14 (H)Comment: Testing | 0.00 - 0.10 | EXTERNAL | | | Basophils | performed at [facility], [address] | K/uL | LAB | | | | [address], | | | | | | [place] [address] | | | | + + + + + + | RBC | NORMAL RBC MORPHComment: | | EXTERNAL | | | Morphology | Testing performed at | | LAB | | | | [facility], [address] | | | | | | [place] | | | | | | [address] | | | | + + + + + + | Differentia | 2+ GIANT PLTComment: | | EXTERNAL | | | l Comments | Testing performed at | | LAB | | | | [facility], [address] | | | | | | [place] | | | | | | [address] | | | | + + + [...] [place] | | | | | | [address] [...] | | | (REF) | performed at [facility], [address] | | LAB | | | | [address], | | | | | | [place] [address] | | | | + + + [...] | | | | | [place] [address] | | | | + + + [...] | | | | performed at [facility], [address] | | LAB | | | | [address], | | | | | | [place] [address] | | | | + + + [...] | | | | | [place] [address] | | | | + + + + + + | K | 3.0 (L)Comment: Testing | 3.5 - 4.9 | EXTERNAL | | | | performed at [facility], [address] | mmol/L | LAB | | | | [address], | | | | | | [place] [address] | | | | + + + + + + | Cl | 104Comment: Testing | 99 - 109 mmol/L | EXTERNAL | | | | performed at [facility], [address] | | LAB | | | [address], | | | | | | [place] [address] | | | | + + + + + + | CO2 | 22 (L)Comment: Testing | 23 - 32 mmol/L | EXTERNAL | | | | performed at [facility], [address] | | LAB | | | | [address], | | | | | | [place] [address] | | | | + + + + + + | Anion Gap | 15Comment: Testing | 5 - 20 mmol/L | EXTERNAL | | | | performed at [facility], [address] | | LAB | | | | [address], | | | | | | [place] [address] | | | | + + + + + + | Glucose, | 82Comment: Testing | 65 - 99 mg/dL | EXTERNAL | | | Fasting | performed at [facility], [address] | | LAB | | | | [address], | | | | | | [place] [address] | | | | + + + + + + | BUN | 13Comment: Testing | 8 - 25 mg/dL | EXTERNAL | | | | performed at [facility], [address] | | LAB | | | | [address], | | | | | | [place] [address] | | | | + + + + + + | Creatinine | 1.01 (H)Comment: Testing | 0.50 - 1.00 | EXTERNAL | | | | performed at [facility], [address] | mg/dL | LAB | | | | [address], | | | | | | [place] [address] | | | | + + + + + + | BUN/Creatin | 13Comment: Testing | | EXTERNAL | | | ine Ratio | performed at [facility], [address] | | LAB | | | | [address], | | | | | | [place] [address] | | | | + + + + + + | Calcium | 7.7 (L)Comment: Testing | 8.5 - 10.5 | EXTERNAL | | | | performed at [facility], [address] | mg/dL | LAB | | | | [address], | | | | | | [place] [address] | | | | + + + + + + | Protein, | 7.1Comment: Testing | 6.3 - 8.2 g/dL | EXTERNAL | | | Total | performed at [facility], [address] | | LAB | | | | [address], | | | | | | [place] [address] | | | | + + + + + + | Albumin | 3.2 (L)Comment: Testing | 3.3 - 4.8 g/dL | EXTERNAL | | | | performed at [facility], [address] | | LAB | | | | [address], | | | | | | [place] [address] | | | | + + + + + + | Globulin | 3.9Comment: Testing | 1.3 - 4.9 g/dL | EXTERNAL | | | | performed at [facility], [address] | | LAB | | | | [address], | | | | | | [place] [address] | | | | + + + + + + | A/G Ratio | 0.8 (L)Comment: Testing | 1.0 - 2.4 | EXTERNAL | | | | performed at [facility], [address] | | LAB | | | | [address], | | | | | | [place] [address] | | | | + + + + + + | Bilirubin | 0.4Comment: Testing | 0.1 - 1.5 mg/dL | EXTERNAL | | | Total | performed at [facility], [address] | | LAB | | | | [address], | | | | | | [place] [address] | | | | + + + + + + | ALP, | 76Comment: Testing | 35 - 115 U/L | EXTERNAL | | | External | performed at [facility], [address] | | LAB | | | | [address], | | | | | | [place] [address] | | | | + + + + + + | AST | 26Comment: Testing | 10 - 45 U/L | EXTERNAL | | | | performed at [facility], [address] | | LAB | | | | [address], | | | | | | [place] [address] | | | | + + + + + + | ALT | 19Comment: Testing | 10 - 65 U/L | EXTERNAL | | | | performed at [facility], [address] | | LAB | | | | [address], | | | | | | [place] [address] | | | | + + + [...] Jose, | | | | | | [place] [address] | | | | + + [...] | | | | performed at [facility], [address] | | | | | | [facility], | | | | | | [place] [address] | | | | + + + [...] | | Urine | performed at [facility], [address] | | LAB | | | Random | [address], | | | | | | [place] [address] | | | | + + + [...] | at L, [address] [place] [address] | | + + + + +---------+ [...] LA/Ao: 1.57 D-E Excursion: 2.11 cm E-F Eureka: 0.09 m/s | | | EPSS: 0.48 [...] TV A Billy: 0.66 m/s TV Dec Eureka: 4.36 m/s2 TV Dec | | | Time: 184.41 ms TV E Billy: 0.80 m/s TV E/A Ratio: 1.21 | | | Convalescent Sitter: NEDRA Authenticated by: Gil Coronel MD Report [...] | Index (A-L): 40.51 ml/m2LAAs A2C: 24.56 [id number] A-L A2C: 76.32 mlLAESV MOD A2C: | | 73.52 mlLALs A2C: 6.71 cmLAAs A4C: 24.96 [id number] A-L A4C: 79.86 mlLAESV MOD A4C: | | 77.20 mlLALs A4C: 6.62 cmAo Diam: 2.73 cmAV Cusp: 2.27 cmLA Diam: 4.29 | | cmLA/Ao: 1.57D-E Excursion: 2.11 cmE-F Eureka: 0.09 m/sEPSS: 0.48 cmHR: 77.41 | | BPMAV maxP.05 mmHgAV meanP.21 mmHgAV Vmax: 1.73 m/Sorin Vmean: 1.25 m/Sorin | | VTI: 34.68 cmAVA Vmax: 2.07 cm2AVA (VTI): 1.85 [id number] Dopp: 2.60 l/uvvi6ESNO | | Dopp: 5.05 l/minHR: 78.81 BPMLVOT [...] | m/sTV A Billy: 0.66 m/sTV Dec Eureka: 4.36 m/s2TV Dec Time: 184.41 msTV E Billy: 0.80 | | m/sTV E/A Ratio: 1.21 Convalescent Sitter: GDAuthenticated by: Gil Coronel [facility] | | Date/Time: 01-15-2015 09:12:05 IMPRESSION: [...] | |D-E Excursion: 2.11 cm | |E-F Eureka: 0.09 m/s | |EPSS: 0.48 cm | [...] A Billy: 0.66 m/s | |TV Dec Eureka: 4.36 m/s2 | |TV Dec Time: 184.41 ms | |TV E Billy: 0.80 m/s | |TV E/A Ratio: 1.21 | | | |Convalescent Sitter: NEDRA | |Authenticated by: Gil Coronel MD [...] EXTERNAL LAB | | performed at [facility];[address];[place] [address] 027 NAP1 BI | | | 027 NAP1 BI PRESUMPTIVE NEGATIVE | | | Detection of 027 NAP1 BI strains of C. difficile is presumptive and | | | for epidemiological purposes and not intended to guide or monitor | | | treatment for C. difficile infections. Testing performed at [facility];[address] | | | [facility];[place] [address] | | + + + + +---------+ [...] | | LAB | | | | [address], | | | | | | [place] [address] | | | | + + + [...] | | | | performed at [facility];[address] | | | | | | [address];[place], [place] | | | | | | [address] | | | | + + + [...] | LAB | | | | [facility];[address] | [address];[place] [address] | | | | + + + + + + | RED CELL | 3.27 (L)Comment: Testing | 3.70 - 5.10 | EXTERNAL | | | COUNT | performed at [facility];[address] | M/uL | LAB | | | | [address];[place] | | | | | | [address] | | | | + + + + + + | Hgb | 11.2 (L)Comment: Testing | 11.3 - 15.5 | EXTERNAL | | | | performed at [facility];888 | g/dL | LAB | | | | [address];[place] | | | | | | [address] | | | | + + + + + + | Hematocrit, | 34.4Comment: Testing | 34.0 - 46.0 % | EXTERNAL | | | POC | performed at [facility];[address] | | LAB | | | | [address];[place] | | | | | | [address] | | | | + + + + + + | MCV | 105.2 (H)Comment: | 80.0 - 100.0 fl | EXTERNAL | | | | Testing performed at | | LAB | | | | [facility];[address] | | [address];[place] [address] | | | | + + + + + + | MCH | 34.2 (H)Comment: Testing | 27.0 - 34.0 pg | EXTERNAL | | | | performed at [facility];[address] | | LAB | | | | [address];[place] | | | | | | [address] | | | | + + + + + + | MCHC | 32.5Comment: Testing | 32.0 - 35.5 | EXTERNAL | | | | performed at [facility];[address] | g/dL | LAB | | | | [address];[place] | | | | | | [address] | | | | + + + + + + | RDW-CV | 50.3Comment: Testing | 37 - 53 fl | EXTERNAL | | | | performed at [facility];[address] | | LAB | | | | [address];[place] | | | | | | [address] | | | | + + + + + + | Platelet | 160Comment: Testing | 150 - 400 K/uL | EXTERNAL | | | Count | performed at [facility];[address] | | LAB | | | Plasma | [address];[place] | | | | | | [address] | | | | + + + + + + | MPV | 11.1Comment: Testing | fl | EXTERNAL | | | | performed at [facility];[address] | | LAB | | | | [address];[place] | | | | | | [address] | | | | + + + + + + | Differentia | AUTOMATEDComment: | | EXTERNAL | | | l Type | Testing performed at | | LAB | | | | [facility];[address];[place] [address] | | | | + + + + + + | % Segmented | 50.65Comment: Testing | % | EXTERNAL | | | | performed at [facility];[address] | | LAB | | | Neutrophils | [address];[place] | | | | | | [address] | | | | + + + + + + | % | 37.06Comment: Testing | % | EXTERNAL | | | Lymphocytes | performed at [facility];[address] | | LAB | | | | [address];[place] | | | | | | [address] | | | | + + + + + + | % Monocytes | 9.60Comment: Testing | % | EXTERNAL | | | | performed at [facility];[address] | | LAB | | | | [address];[place] | | | | | | [address] | | | | + + + + + + | % | 1.30Comment: Testing | % | EXTERNAL | | | Eosinophils | performed at [facility];[address] | | LAB | | | | [address];[place] | | | | | | [address] | | | | + + + + + + | % Basophils | 1.39Comment: Testing | % | EXTERNAL | | | | performed at [facility];[address] | | LAB | | | | [address];[place] | | | | | | [address] | | | | + + + + + + | Absolute | 6.64Comment: Testing | 1.90 - 7.40 | EXTERNAL | | | Segmented | performed at [facility];888 | K/uL | LAB | | | Neutrophils | [address];[place] | | | | | | [address] | | | | + + + + + + | Absolute | 4.86 (H)Comment: Testing | 1.00 - 3.90 | EXTERNAL | | | Lymphocytes | performed at [facility];888 | K/uL | LAB | | | | [address];[place] | | | | | | [address] | | | | + + + + + + | Absolute | 1.26 (H)Comment: Testing | 0.00 - 0.80 | EXTERNAL | | | Monocytes | performed at [facility];888 | K/uL | LAB | | | | [address];[place] | | | | | | [address] | | | | + + + + + + | Absolute | 0.17Comment: Testing | 0.00 - 0.50 | EXTERNAL | | | Eosinophils | performed at [facility];888 | K/uL | LAB | | | | [address];[place] | | | | | | [address] | | | | + + + + + + | Absolute | 0.18 (H)Comment: Testing | 0.00 - 0.10 | EXTERNAL | | | Basophils | performed at [facility];888 | K/uL | LAB | | | | [address];[place] | | | | | | [address] | | | | + + + [...] | | | | performed at [facility];[address] | | LAB | | | | [facility];[place], [place] | | | | | | [address] | | | | + + + [...] | | | | performed at [facility];[address] | | | | | | [address];[place], [place] | | | | | | [address] | | | | + + + [...] | | | | performed at [facility];888 | mmol/L | LAB | | | | [address];[place] | | | | | | [address] | | | | + + + + + + | K | 3.7Comment: SLT | 3.5 - 4.9 | EXTERNAL | | | | HEMOLYSISTesting | mmol/L | LAB | | | | performed at [facility];[address] | | | | | | [address];[place] | | | | | | [address] | | | | + + + + + + | Cl | 110 (H)Comment: Testing | 99 - 109 mmol/L | EXTERNAL | | | | performed at [facility];[address] | | LAB | | | | [address];[place] | | | | | | [address] | | | | + + + + + + | CO2 | 24Comment: Testing | 23 - 32 mmol/L | EXTERNAL | | | | performed at [facility];[address] | | LAB | | | | [address];[place] | | | | | | [address] | | | | + + + + + + | Anion Gap | 13Comment: Testing | 5 - 20 mmol/L | EXTERNAL | | | | performed at [facility];[address] | | LAB | | | | [address];[place] | | | | | | [address] | | | | + + + + + + | Glucose, | 109 (H)Comment: Testing | 65 - 99 mg/dL | EXTERNAL | | | Fasting | performed at [facility];[address] | | LAB | | | | [address];[place] | | | | | | [address] | | | | + + + + + + | BUN | 24Comment: Testing | 8 - 25 mg/dL | EXTERNAL | | | | performed at [facility];[address] | | LAB | | | | [address];[place] | | | | | | [address] | | | | + + + + + + | Creatinine | 1.7 (H)Comment: Testing | 0.50 - 1.00 | EXTERNAL | | | | performed at [facility];888 | mg/dL | LAB | | | | [address];[place] | | | | | | [address] | | | | + + + + + + | BUN/Creatin | 14Comment: Testing | | EXTERNAL | | | ine Ratio | performed at [facility];[address] | | LAB | | | | [address];[place] | | | | | | [address] | | | | + + + + + + | Calcium | 7.4 (L)Comment: Testing | 8.5 - 10.5 | EXTERNAL | | | | performed at [facility];888 | mg/dL | LAB | | | | [address];[place] | | | | | | [address] | | | | + + + + + + | Protein, | 7.0Comment: Testing | 6.3 - 8.2 g/dL | EXTERNAL | | | Total | performed at [facility];[address] | | LAB | | | | [address];[place] | | | | | | [address] | | | | + + + + + + | Albumin | 2.6 (L)Comment: Testing | 3.3 - 4.8 g/dL | EXTERNAL | | | | performed at [facility];[address] | | LAB | | | | [address];[place] | | | | | | [address] | | | | + + + + + + | Globulin | 4.3Comment: Testing | 1.3 - 4.9 g/dL | EXTERNAL | | | | performed at [facility];[address] | | LAB | | | | [address];[place] | | | | | | [address] | | | | + + + + + + | A/G Ratio | 0.6 (L)Comment: Testing | 1.0 - 2.4 | EXTERNAL | | | | performed at [facility];[address] | | LAB | | | | [address];[place] | | | | | | [address] | | | | + + + + + + | Bilirubin | 0.4Comment: Testing | 0.1 - 1.5 mg/dL | EXTERNAL | | | Total | performed at [facility];[address] | | LAB | | | | [address];[place] | | | | | | [address] | | | | + + + + + + | ALP, | 92Comment: Testing | 35 - 115 U/L | EXTERNAL | | | External | performed at [facility];[address] | | LAB | | | | [address];[place] | | | | | | [address] | | | | + + + + + + | AST | 35Comment: SLT | 10 - 45 U/L | EXTERNAL | | | | HEMOLYSISTesting | | LAB | | | | performed at [facility];[address] | | | | | | [facility];[place] | | | | | | [address] | | | | + + + + + + | ALT | 29Comment: Testing | 10 - 65 U/L | EXTERNAL | | | | performed at [facility];[address] | | LAB | | | | [address];[place] | | | | | | [address] | | | | + + + [...] | | | | | at [facility];[address] [facility] | | | | | | Blvd;[place] [address] | | | | + + + [...] | | | | performed at [facility];888 | uIU/mL | LAB | | | | [address];[place], [place] | | | | | | [address] | | | | + + + [...] + + | Historically converted procedure from [facility] environment | EXTERNAL LAB | + [...] | | | | performed at [facility];[address] | | | | | | [facility];[place], [place] | | | | | | [address] | | | | + + + [...] GROWTH | | | Testing performed at [facility], | | | [address] [place] [address] | | + + + + +---------+ [...] | | study for comparison: None FINDINGS: Licensed Electrician 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 | | | degenerative [...] study | | for comparison: None FINDINGS: Licensed Electrician 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 degenerative changes of the [...] Testing | | | performed at [facility];[address] [place] [address];[place] [address] | | + + + + +---------+ [...] | | | | | at [facility];[address] [place] [address] | | | | | | [facility];[place] [address] | | | | + + + [...] | | | | performed at [facility];[address] | | LAB | | | | [address];[place], [place] | | | | | | [address] | | | | + + + [...] | | | | performed at [facility] | | LAB | | | | [address];[place] | | | | | | [address] | | | | + + + [...] | | | | performed at [facility];888 | mmol/L | LAB | | | | [address];[place], [place] | | | | | | [address] | | | | + + + [...] | | | | | [place] [address] | | | | + + + [...] [place] | | | | | | [address] | | | | + + + [...] (500), | | | | | | editorial clerk Shala Gramajo | | | | | [...] | | | | performed at [facility];[address] | | LAB | | | | [address];[place] | | | | | | [address] [...] | | | | performed at [facility];[address] | | LAB | | | | [facility];[place], [place] | | | | | | [address] | | | | + + + [...] | | | | performed at [facility] | | | | | | [address];[place], [place] | | | | | | [address] | | | | + + + [...] | | | | performed at [facility];[address] | | LAB | | | | [address];[place], [place] | | | | | | [address] | | | | + + + [...] | | | | performed at [facility];[address] | | LAB | | | | [address];[place] | | | | | | [address] | | | | + + + [...] | LAB | | | | [facility];[address] | | | | | | [address];[place] [address] | | | | + + + + + + | RED CELL | 4.17Comment: Testing | 3.70 - 5.10 | EXTERNAL | | | COUNT | performed at [facility];888 | M/uL | LAB | | | | [address];[place] | | | | | | [address] | | | | + + + + + + | Hgb | 14.6Comment: Testing | 11.3 - 15.5 | EXTERNAL | | | | performed at [facility];888 | g/dL | LAB | | | | [address];[place] | | | | | | [address] | | | | + + + + + + | Hematocrit, | 42.7Comment: Testing | 34.0 - 46.0 % | EXTERNAL | | | POC | performed at [facility];[address] | | LAB | | | | [address];[place] | | | | | | [address] | | | | + + + + + + | MCV | 102.3 (H)Comment: | 80.0 - 100.0 fl | EXTERNAL | | | | Testing performed at | | LAB | | | | [facility];[address] | | | | | | [address];[place] [address] | | | | + + + + + + | MCH | 35.0 (H)Comment: Testing | 27.0 - 34.0 pg | EXTERNAL | | | | performed at [facility];[address] | | LAB | | | | [address];[place] | | | | | | [address] | | | | + + + + + + | MCHC | 34.2Comment: Testing | 32.0 - 35.5 | EXTERNAL | | | | performed at [facility];888 | g/dL | LAB | | | | [address];[place] | | | | | | [address] | | | | + + + + + + | RDW-CV | 49.9Comment: Testing | 37 - 53 fl | EXTERNAL | | | | performed at [facility];[address] | | LAB | | | | [address];[place] | | | | | | [address] | | | | + + + + + + | Platelet | 209Comment: Testing | 150 - 400 K/uL | EXTERNAL | | | Count | performed at [facility];[address] | | LAB | | | Plasma | [address];[place] | | | | | | [address] | | | | + + + + + + | MPV | 11.1Comment: Testing | fl | EXTERNAL | | | | performed at [facility];[address] | | LAB | | | | [address];[place] | | | | | | [address] | | | | + + + + + + | RBC | 1+Comment: GIANT | | EXTERNAL | | | Morphology | PLATELETS1+MACROTesting | | LAB | | | | performed at [facility];[address] | | | | | | [address];[place] | | | | | | [address] | | | | | |Testing performed at [facility];[address];[place] [address] | | | | | | | | | | + + + + + + | Differentia | MANUALComment: Testing | | EXTERNAL | | | l Type | performed at [facility];[address] | | LAB | | | | [address];[place] | | | | | | [address] | | | | + + + + + + | Segmented | 58Comment: Testing | % | EXTERNAL | | | Neutrophils | performed at [facility];[address] | | LAB | | | Manual | [address];[place] | | | | | | [address] | | | | + + + + + + | Lymphocytes | 32Comment: Testing | % | EXTERNAL | | | Manual | performed at [facility];[address] | | LAB | | | | [address];[place] | | | | | | [address] | | | | + + + + + + | Monocytes | 9Comment: Testing | % | EXTERNAL | | | Manual | performed at [facility];[address] | | LAB | | | | [address];[place] | | | | | | [address] | | | | + + + + + + | Eosinophils | 1Comment: Testing | % | EXTERNAL | | | Manual | performed at [facility] [place];888 | | LAB | | | | [address];[place] | | | | | | [address] | | | | + + + + + + | Absolute | 9.39 (H)Comment: Testing | 1.90 - 7.40 | EXTERNAL | | | Neutrophils | performed at [facility] [place];888 | K/uL | LAB | | | | [address];[place] | | | | | | [address] | | | | + + + + + + | Absolute | 5.18 (H)Comment: Testing | 1.00 - 3.90 | EXTERNAL | | | Lymphocytes | performed at [facility] [place];888 | K/uL | LAB | | | | [address];[place] | | | | | | [address] | | | | + + + + + + | Absolute | 1.46 (H)Comment: Testing | 0.00 - 0.80 | EXTERNAL | | | Monocytes | performed at [facility] [place];888 | K/uL | LAB | | | | [address];[place] | | | | | | [address] | | | | + + + + + + | Absolute | 0.16Comment: Testing | 0.00 - 0.50 | EXTERNAL | | | Eosinophils | performed at [facility] [place];888 | K/uL | LAB | | | | [address];[place] | | | | | | [address] | | | | + + + + + + | Na | 140Comment: Testing | 135 - 143 | EXTERNAL | | | | performed at [facility] [place];888 | mmol/L | LAB | | | | [address];[place] | | | | | | [address] | | | | + + + + + + | K | 2.8 (L)Comment: Testing | 3.5 - 4.9 | EXTERNAL | | | | performed at [facility] [place];888 | mmol/L | LAB | | | | [address];[place] | | | | | | [address] | | | | + + + + + + | Cl | 100Comment: Testing | 99 - 109 mmol/L | EXTERNAL | | | | performed at [facility] [place];[address] | | LAB | | | | [address];[place] | | | | | | [address] | | | | + + + + + + | CO2 | 29Comment: Testing | 23 - 32 mmol/L | EXTERNAL | | | | performed at [facility] [place];888 | | LAB | | | | [address];[place] | | | | | | [address] | | | | + + + + + + | Anion Gap | 14Comment: Testing | 5 - 20 mmol/L | EXTERNAL | | | | performed at [facility] [place];888 | | LAB | | | | [address];[place] | | | | | | [address] | | | | + + + + + + | Glucose, | 107 (H)Comment: Testing | 65 - 99 mg/dL | EXTERNAL | | | Fasting | performed at [facility] [place];888 | | LAB | | | | [address];[place] | | | | | | [address] | | | | + + + + + + | BUN | 28 (H)Comment: Testing | 8 - 25 mg/dL | EXTERNAL | | | | performed at [facility] [place];[address] | | LAB | | | | [address];[place] | | | | | | [address] | | | | + + + + + + | Creatinine | 2.4 (H)Comment: Testing | 0.50 - 1.00 | EXTERNAL | | | | performed at [facility] [place];888 | mg/dL | LAB | | | | [address];[place] | | | | | | [address] | | | | + + + + + + | BUN/Creatin | 12Comment: Testing | | EXTERNAL | | | ine Ratio | performed at [facility] [place];[address] | | LAB | | | | [address];[place] | | | | | | [address] | | | | + + + + + + | Calcium | 8.1 (L)Comment: Testing | 8.5 - 10.5 | EXTERNAL | | | | performed at [facility] [place];888 | mg/dL | LAB | | | | [address];[place] | | | | | | [address] | | | | + + + + + + | Protein, | 9.3 (H)Comment: Testing | 6.3 - 8.2 g/dL | EXTERNAL | | | Total | performed at [facility] [place];888 | | LAB | | | | [address];[place] | | | | | | [address] | | | | + + + + + + | Albumin | 3.3Comment: Testing | 3.3 - 4.8 g/dL | EXTERNAL | | | | performed at [facility] [place];[address] | | LAB | | | | [address];[place] | | | | | | [address] | | | | + + + + + + | Globulin | 6.0 (H)Comment: Testing | 1.3 - 4.9 g/dL | EXTERNAL | | | | performed at [facility];[address] | | LAB | | | | [address];[place] | | | | | | [address] | | | | + + + + + + | A/G Ratio | 0.5 (L)Comment: Testing | 1.0 - 2.4 | EXTERNAL | | | | performed at [facility];[address] | | LAB | | | | [address];[place] | | | | | | [address] | | | | + + + + + + | Bilirubin | 0.4Comment: Testing | 0.1 - 1.5 mg/dL | EXTERNAL | | | Total | performed at [facility];[address] | | LAB | | | | [address];[place] | | | | | | [address] | | | | + + + + + + | ALP, | 129 (H)Comment: Testing | 35 - 115 U/L | EXTERNAL | | | External | performed at [facility];[address] | | LAB | | | | [address];[place] | | | | | | [address] | | | | + + + + + + | AST | 39Comment: Testing | 10 - 45 U/L | EXTERNAL | | | | performed at [facility];[address] | | LAB | | | | [address];[place] | | | | | | [address] | | | | + + + + + + | ALT | 38Comment: Testing | 10 - 65 U/L | EXTERNAL | | | | performed at [facility];[address] | | LAB | | | | [address];[place] | | | | | | [address] | | | | + + + [...] | | | | | at [facility];[address] | | | | | | [address];[place] [address] | | | | + + + + + + | CK, Total | 151Comment: Testing | 30 - 240 U/L | EXTERNAL | | | | performed at [facility];[address] | | LAB | | | | [address];[place] | | | | | | [address] | | | | + + + [...] | | | | performed at [facility];[address] | | | | | | [address];[place] | | | | | | [address] | | | | + + + + + + | aPTT, | 26Comment: Testing | 23 - 32 seconds | EXTERNAL | | | Patient | performed at [facility];[address] | | LAB | | | | [address];[place] | | | | | | [address] | | | | + + + + + + | CK-MB | 3.9 (H)Comment: Testing | 0.5 - 3.6 ng/mL | EXTERNAL | | | | performed at [facility];[address] | | LAB | | | | [address];[place] | | | | | | [address] | | | | + + + [...] | | | | performed at [facility];[address] | | | | | | [facility];[place], [place] | | | | | | [address] | | | | + + + [...]
--- OUTSIDE RECORDS SUMMARY | ~2019-05-09 | XMS | Clinical Summary ---
Demographics + + + | Address | [address] | | | [place] [address] | + + + | Home Phone | | + + + | Preferred Language | Unknown | + + + | Marital Status | | + + + | Baptist Affiliation | 1041 | + + + | Race | Unknown | + + + | Ethnic Group | Unknown | + + + Author + + + | Author | [employer] [employer] (Historical as of | | | 01-06-19) | + + + | Organization | [facility] [employer] (Historical as of | | | 01-06-19) [...] Team Providers + +------+ + | Care Corporate Responsibility Officer Name | Role | Phone | [...] | MA - GENERIC | MA-GEN | [id number] | Medica | | | | | [...] | | | | | | | [address] | + +--------+ +--------+ + +
--- OUTSIDE RECORDS SUMMARY | ~2019-05-09 | XMS | Clinical Summary ---
Demographics + + + | Address | [address] | | | [place] [address] | + + + | Home Phone | | + + + | Preferred Language | Unknown | + + + | Marital Status | | + + + | Cheondoism Affiliation | 1041 | + + + | Race | Unknown | + + + | Ethnic Group | Unknown | + + + Author + + + | Author | [facility] (Historical as of | | | 01-06-19) | + + + | Organization | [facility] (Historical as of | | | 01-06-19) [...] Team Providers + +------+ + | Care Rigger Name | Role | Phone | + [...] | MA - GENERIC | MA-GEN | [id number] | Medica | | | | | [...] | | | | | | | [address] | + +--------+ +--------+ + +
--- OUTSIDE RECORDS SUMMARY | ~2019-05-09 | XMS | Encounter Summary ---
Demographics + + + | Address | [address] | | | [place] [address] | + + + | Home Phone [...] Team Providers + +------+ + | Care Access Manager Name | Role | Phone | [...] | CONVERSION [address] | MD [address] | | | | | [place] | [address] [place], [place] | | | | | [place], [place] | [address] | | | | | [address] | | | | | | [phone] | | | +--------+ + + + [...] 0.03 m/s | | | MV Dec Aguada: 9.74 m/s2 MV DecT: 91.63 ms MV E Billy: 0.89 | | | m/s MV E/A Ratio: 26.03 MV PHT: 26.57 ms MVA By PHT: 8.27 | | | cm2 Septal e': 0.06 m/s Septal E/e': 12.90 Lateral e': | | | 0.09 m/s Lateral E/e': 8.96 RAP: 5 mmHg RVSP: 17.59 mmHg | | | TR maxP.59 mmHg TR Vmax: 1.77 m/s Radarman: NAIF | | | Authenticated by: Conor Kemprhome Report Date/Time: -- | | | [id number]:51:12 | | + + + + + [...] cmLVPWd: 1.14 cmLVOT | | Area: 3.33 hq0GUWB Diam: 2.06 cm%FS: 26.43 %EF(Teich): 51.67 %ESV(Teich): [...] (A-L): | | 45.82 ml/m2LAAs A2C: 22.15 in8LXQSD A-L A2C: 71.25 mlLALs A2C: 5.84 cmLAAs A4C: | | 28.64 kv5ODYEL A-L A4C: 104.24 mlLALs A4C: 6.68 cmRAAs: 14.65 th1SMXAE A-L: | | 33.90 mlRAESV MOD: 34.21 mlRALs: 5.37 cmAV maxP.81 mmHgAV meanP.70 | | mmHgAV Vmax: 1.30 m/Sorin Vmean: 0.90 m/Sorin VTI: 24.74 cmAVA Vmax: 2.36 cm2AVA | | (VTI): 2.24 to8HLTF maxP.41 mmHgLVOT meanP.88 mmHgLVSI Dopp: 27.63 | | ml/m2LVSV Dopp: 55.54 mlLVOT Vmax: 0.92 m/sLVOT Vmean: 0.64 m/sLVOT VTI: 16.66 | | cmMV A Billy: 0.03 m/sMV Dec Aguada: 9.74 m/s2MV DecT: 91.63 msMV E Billy: 0.89 m/sMV | | E/A Ratio: 26.03MV PHT: 26.57 msMVA By PHT: 8.27 kw1Gvehdi e': 0.06 m/sSeptal | | E/e': 12.90Lateral e': 0.09 m/sLateral E/e': 8.96RAP: 5 mmHgRVSP: 17.59 mmHgTR | | maxP.59 mmHgTR Vmax: 1.77 m/s Radarman: DHAuthenticated by: Conor | | [facility] Date/Time: -- [id number]:12 IMPRESSION: 1. The left ventricle is | [...] A Billy: 0.03 m/s | |MV Dec Aguada: 9.74 m/s2 | |MV DecT: 91.63 ms [...] |TR Vmax: 1.77 m/s | | | |Radarman: NAIF | |Authenticated by: Conor Garcia | |Report Date/Time: -- [id number]:51:12 | | | |IMPRESSION: | |1. The [...]
--- OUTSIDE RECORDS SUMMARY | ~2019-05-09 | XMS | Encounter Summary ---
Demographics + + + | Address | [address] | | | [place] [address] | + + + | Home Phone | | + + + | Preferred Language | Unknown | + + + | Marital Status | Single | + + + | Rastafari Affiliation | 1041 | + + + [...] Team Providers + +------+ + | Care Relay Associate Name | Role | Phone | [...] | | CONSULT | [place] | [place] [address] | | | | | | [place], [place] | Phone: | | | | | | [address] | [phone] | | | | | | Phone: | Fax: | | | | | | [phone] | [phone] | | | | | | Fax: | | | | | | | [phone] | | +--------+--------+ + + + + [...] | Dx); Kyphosis | | | | [address], | [place], [place] | deformity of spine | | | | [place] [address] | [address] | | | | | [phone] | | | +--------+---------+ + + + [...] oxygen at 2 L per minute at [facility] while she slept. Over last 3 [...] A copy of the patient's echocardiogram from [facility] will be reviewed. CC: Yovani Santana documented in this encounter Plan of Treatment Not on filedocumented as of this encounter Results PFT PULMONARY FUNCTION TESTING ORDERS Full PFT ([place] w/BD, lung volumes, diffusion)?: Yes; Rest and [...] Melendez MD 03/27/2014 13:24 | | | [facility] | | + + + + [...] 03/26/14Electronically signed by: Gary Melendez MD 03/27/2014 13:24[facility] | | [facility] | | | |No prior pulmonary function tests available for comparison. 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
--- OUTSIDE RECORDS SUMMARY | ~2019-05-09 | XMS | Encounter Summary ---
Demographics + + + | Address | [address] | | | [place] [address] | + + + | Home Phone [...] Team Providers + +------+ + | Care Cloth Shrinker Name | Role | Phone | + [...] | 2014 - | Encounter | [facility] | MD Carmelo SANTAMARIA | | | | | CARE FLOOR [address] | [place] [address] | | | 02/03/ | | TIERA SANTAMARIA | [phone] | | | 2014 | | [place], [place] | | | | | | [address] | | | | | | [phone] | | | +--------+ + + + [...] Date of Service: 02/03/15 1029 Status: Signed [place] Operator: Jose Maria Espinal MD (Physician) Related Notes: Original Note by Jose Maria Espinal MD (Physician) filed at 02/04/15 1345 [facility] Service: Hospitalist Physician Discharge Summary [...] 2-4 lpm, Presented as a transfer from [facility] in [place] for fever of 101 and altered mental s tatus. She was discharged from [facility] on 01/09/15 for elevated troponin and acute [...] antibiotics. She was brought back in to [facility] for fever and confusion. UA and CXR reportedly negative there. SBP was 90s. She had formed stool there but en route here she did develop watery stool, tested C diff + here.".......per admitting MD/Dr. Smith . The patient was admitted to [facility] with a diagnosis of Clostridium difficile infection while she was being transferred from [facility] with fever and altered mental status. Th e patient has underlying immunosuppression secondary to a remote history of liver transplant on chronic immunosuppressive therapy with azathioprine and cyclosporin. Following her trans fletcher to [facility], she was started on oral vancomycin initially [...] medically stable for discharge to return to [facility] in [place] on Jan. ADDITIONAL ISSUES 1. Recurrent atelectasis. [...] I would urge managing physician at senior living facility where the patient resides in [facility] to check anothe r magnesium level [...] Procedure: COLONOSCOPY; Surgeon: Juan Ramey MD; Location: [facility] ENDOSCOPY; Service: Gastroenterology; Laterality: N/A; Discharged Condition: [...] DO [address] [facility] [address] [place] [address] Schedule an appointment as soon as possible [...] o these places to get your medications. [facility] - [place], [place] - [address] - lactobacillus granules [address] [place] [address] You may get the following medications from [...] 02/03/151608 Date of Service: 02/03/151608 Status: Signed [place] Operator: Pedro Partida RN (Registered Nurse) 02/03/151602 Discharge Planning Evaluation Admitting Diagnosis Elevated temp, CKD, post liver transplant Readmission Yes-within 14 days Reason for readmission Fever, confusion, C.dif Last discharge disposition Residential Facility Needs met at last discharge Yes Picked up discharge Rx medications Yes Started prescribed DC meds Yes Understood discharge instructions Yes Assistance available Yes Concerns for meeting needs No Caregiver after Discharge Yes Mental Status Oriented Anticipated Disposition Facility Type [facility] facility Residential Facility Other (comment) ([facility] in [place]) Disposition: Return to [facility] [...] 02/03/15899 Date of Service: 02/02/151521 Status: Signed [place] Operator: Jose Maria Espinal MD (Physician) Related Notes: Original Note by Jose Maria Espinal MD (Physician) filed at 02/02/15 1950 [facility] Service: Hospitalist Progress Note Pt: Cole Ernst AGE/SEX: 69 y.o. female : 1945 ROOM: [facility] History of Present Illness: " The patient is a 69 y.o. female with significant past medical history of liver transplant int he 90s on cyclosporine and imuran, chronic pain on methadone, CKD st 3, chronic home O2 of unclear etiology from 2-4 lp, Presented as a transfer from [facility] in [place] for fever of 101 and altered mental s tatus. She was discharged from [facility] on 01/09/15 for elevated troponin and acute [...] antibiotics. She was brought back in to [facility] for fever and confusion. UA [...] sulfate. Case management [facility] [place] [facility] the [facility] in the next [...] contrast. Prior study for comparison: None FINDINGS: Napper Grinder 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 deg enerative changes [...] LA/Ao: 1.57 D-E Excursion: 2.11 cm E-F Redwood: 0.09 m/s EPSS: 0.48 cm HR: 77.41 [...] TV A Billy: 0.66 m/s TV Dec Redwood: 4.36 m/s2 TV Dec Time: 184.41 ms TV E Billy: 0.80 m/s TV E/A Rat io: 1.21 Concrete Placement Equipment Operator: NEDRA Authenticated by: Gil Martines MD [...] Procedure: COLONOSCOPY; Surgeon: Juan Ramey MD; Location: [facility] ENDOSCOPY; Service: Gastroenterology; Laterality: N/A; PROBLEM LIST [...] by Jose Maria Espinal MD at 02/01/15 5608 Author: Jose Maria Espinal MD Service: Hospitalist Author Type: Physician Filed: 02/02/15 1523 Date of Service: 02/01/151716 Status: Signed [place] Operator: Jose Maria Espinal MD (Physician) Related Notes: Original Note by Jose Maria Espinal MD (Physician) filed at 02/02/15 1304 [facility] Service: Hospitalist Progress Note Pt: Cole Ernst AGE/SEX: 69 y.o. female : 1945 ROOM: [address] [place] [address] History of Present Illness: " The patient is a 69 y.o. female with significant past medical history of liver transplant int he 90s on cyclosporine and imuran, chronic pain on methadone, CKD st 3, chronic home O2 of unclear etiology from 2-4 lpm, Presented as a transfer from [facility] for fever of 101 and altered mental s tatus. She was discharged from [facility] on 01/09/15 for elevated troponin and acute [...] antibiotics. She was brought back in to [facility] for fever and confusion. UA [...] establishing readiness of the faci lity in [place] to accept the patient in the next [...] contrast. Prior study for comparison: None FINDINGS: Napper Grinder 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 deg enerative changes [...] LA/Ao: 1.57 D-E Excursion: 2.11 cm E-F Redwood: 0.09 m/s EPSS: 0.48 cm HR: 77.41 [...] TV A Billy: 0.66 m/s TV Dec Redwood: 4.36 m/s2 TV Dec Time: 184.41 ms TV E Billy: 0.80 m/s TV E/A Rat io: 1.21 Concrete Placement Equipment Operator: NEDRA Authenticated by: Gil Martines MD [...] Procedure: COLONOSCOPY; Surgeon: Juan Ramey MD; Location: [facility] ENDOSCOPY; Service: Gastroenterology; Laterality: N/A; PROBLEM LIST [...] Currently with normal liver function tests. 3. Eonpf-mi-kqnmrxb liver disease, stage III. Creatinine level has [...] 01/31/152124 Date of Service: 01/31/151513 Status: Signed [place] Operator: Jose Maria Espinal MD (Physician) Related Notes: Original Note by Jose Maria Espinal MD (Physician) filed at 01/31/15 1523 [facility] Service: Hospitalist Progress Note Pt: Cole Ernst AGE/SEX: 69 y.o. female : 1945 ROOM: [address] [place] [address] History of Present Illness: " The patient is a 69 y.o. female with significant past medical history of liver transplant int he 90s on cyclosporine and imuran, chronic pain on methadone, CKD st 3, chronic home O2 of unclear etiology from 2-4 lpm, Presented as a transfer from [facility] in [place] for fever of 101 and altered mental s tatus. She was discharged from [facility] on 01/09/15 for elevated troponin and acute [...] antibiotics. She was brought back in to [facility] for fever and confusion. UA [...] contrast. Prior study for comparison: None FINDINGS: Napper Grinder 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 deg enerative changes [...] intravenously according to protocol. Resting heart rate dedeee from 69 beats/min to 88 beats/min which [...] LA/Ao: 1.57 D-E Excursion: 2.11 cm E-F Redwood: 0.09 m/s EPSS: 0.48 cm HR: 77.41 [...] TV A Billy: 0.66 m/s TV Dec Redwood: 4.36 m/s2 TV Dec Time: 184.41 ms TV E Billy: 0.80 m/s TV E/A Rat io: 1.21 Concrete Placement Equipment Operator: NEDRA Authenticated by: Gil Martines MD [...] Procedure: COLONOSCOPY; Surgeon: Juan Ramey MD; Location: [facility] ENDOSCOPY; Service: Gastroenterology; Laterality: N/A; PROBLEM LIST [...] 1313 Date of Service: 01/31/151312 Status: Signed [place] Operator: Catina Moon () Attempted visit. Pt sitting in chair sleeping. No family present. Chaplain Catina Moon onver alessandro Transaction, Provider Unknown - 01/31/2015 11:35 AM PDT Therapy Progress Note by Mahi Yanes PTA at 01/31/15 1135 Author: Mahi Yanes PTA Service: (none) Author Type: Utility Maintenance Worker Filed: 01/31/15 1410 Date of Service: 01/31/151134 Status: Signed [place] Operator: Mahi Yanes PTA (Utility Maintenance Worker) 01/31/15 1135 PT Last Visit PT Received [...] PDT Case Management by Gregg Keene MS, FIELD SUPPORT REPRESENTATIVE at 01/31/15 1007 Author: Gregg Keene, MS, FIELD SUPPORT REPRESENTATIVE Service: (none) Author Type: Electrical Contacts Adjuster Filed: 01/31/15 1546 Date of Service: 01/31/15 1007 Status: Addendum [place] Operator: Gregg Keene , FIELD SUPPORT REPRESENTATIVE (Electrical Contacts Adjuster) Related Notes: Original Note by Gregg Yecenia MS, FIELD SUPPORT REPRESENTATIVE (Electrical Contacts Adjuster) filed at 01/31/15 1007 Discharge planning - [...] (none) Author Type: Physical Therapist Filed: 01/30/15 8446 Date of Service: 01/30/15 1705 Status: Signed [place] Operator: Gail Vernon PT (Physical Therapist) 01/30/15 [...] Service: Hospitalist Author Type: Physician Filed: 01/31/15 1400 Date of Service: 01/30/15 1414 Status: Signed [place] Operator: Jose Maria Espinal MD (Physician) Related Notes: Original Note by Jose Maria Espinal MD (Physician) filed at 01/30/15 9171 [facility] Service: Hospitalist Progress Note Pt: [...] 2-4 lpm, Presented as a transfer from [facility] in [place] for fever of 101 and altered mental s tatus. She was discharged from [facility] on 01/09/15 for elevated troponin and acute [...] antibiotics. She was brought back in to [facility] for fever and confusion. UA [...] contrast. Prior study for comparison: None FINDINGS: Napper Grinder 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 deg enerative changes [...] Perfusion Spect (stress And Rest) 01/18/2015 COLE ENRST 1945 [place] MYOCARDIAL PERFUSION SPECT - STRESS [...] LA/Ao: 1.57 D-E Excursion: 2.11 cm E-F Redwood: 0.09 m/s EPSS: 0.48 cm HR: 77.41 [...] TV A Billy: 0.66 m/s TV Dec Redwood: 4.36 m/s2 TV Dec Time: 184.41 ms TV E Billy: 0.80 m/s TV E/A Rat io: 1.21 Concrete Placement Equipment Operator: NEDRA Authenticated by: Gil Martines MD [...] Procedure: COLONOSCOPY; Surgeon: Juan Ramey MD; Location: [facility] ENDOSCOPY; Service: Gastroenterology; Laterality: N/A; PROBLEM LIST [...] Patient's live r functions remain normal. 3. Igbxk-em-qfmupnl kidney disease stage III. Creatinine level has [...] by Jose Maria Espinal MD at 01/29/15 993 Author: Jose Maria Espinal MD Service: Hospitalist Author Type: Physician Filed: 01/30/15 0957 Date of Service: 01/29/151650 Status: Signed [place] Operator: Jose Maria Espinal MD (Physician) Related Notes: Original Note by Jose Maria Espinal MD (Physician) filed at 01/29/152024 [facility] Service: Hospitalist Progress Note Pt: Cole Ernst AGE/SEX: 69 y.o. female : 1945 ROOM: [address] [place] [address] History of Present Illness: " The patient is a 69 y.o. female with significant past medical history of liver transplant int he 90s on cyclosporine and imuran, chronic pain on methadone, CKD st 3, chronic home O2 of unclear etiology from 2-4 lpm, Presented as a transfer from [facility] in [place] for fever of 101 and altered mental s tatus. She was discharged from [facility] on 01/09/15 for elevated troponin and acute [...] antibiotics. She was brought back in to [facility] for fever and confusion. UA [...] contrast. Prior study for comparison: None FINDINGS: Napper Grinder 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 deg enerative changes [...] LA/Ao: 1.57 D-E Excursion: 2.11 cm E-F Redwood: 0.09 m/s EPSS: 0.48 cm HR: 77.41 [...] TV A Billy: 0.66 m/s TV Dec Redwood: 4.36 m/s2 TV Dec Time: 184.41 ms TV E Billy: 0.80 m/s TV E/A Rat io: 1.21 Concrete Placement Equipment Operator: NEDRA Authenticated by: Gil Martines MD [...] Procedure: COLONOSCOPY; Surgeon: Juan Ramey MD; Location: [facility] ENDOSCOPY; Service: Gastroenterology; Laterality: N/A; PROBLEM LIST [...] Date of Service: 01/29/15 1525 Status: Signed [place] Operator: Pedro Partida RN (Registered Nurse) 01/29/15 1521 Discharge Planning Evaluation Admitting Diagnosis Intestinal infection C.dif. Readmission Yes-within 14 days Reason for readmission Intestinal infection C.dif Last discharge disposition Residential Facility Needs met at last discharge Yes Picked up discharge Rx medications Not applicable Followed up with primary or specialty provider Yes Understood discharge instructions Yes Assistance available Yes Living Arrangements Alone Support Systems Friends/neighbors Type of Residence Private residence House type Apartment Independent with ADL's Yes Independent with Mobility Yes Caregiver after Discharge Yes Mental Status Oriented Anticipated Disposition Facility Type [facility] facility Residential Facility Other (comment) ([facility] in [place]) Met with: patient and discussed discharge planning, Pt is a 69 y.o., female who was discharged from [facility] 2 wee ks ago to [facility] [...] 01/29/1533 Date of Service: 01/29/15854 Status: Signed [place] Operator: Barbara Edmond PT (Physical Therapist) 01/29/15 [...] to SNF after current hospital stay. Just MAT REPAIRER Júnior ADL's and Júnior mobility using 4ww for short room distances, had been using manual w/c in hallway at SNF. Reports a few falls at facility ov er last week, otherwise denies falls over last 6mos. Was getting therapies at facility. Prior Function Level of [place] Modified independent with ADLs;Modified independent with functional [...] Barriers to Discharge Physical Deficits Impacting Functional [place];Self-care Deficit s Impacting Functional [place];Equipment Needs (see comment);Pain Recommendation Comments Needs return [...] Barriers to Discharge Physical Deficits Impacting Functional [place];Self-care Deficit s Impacting Functional [place];Equipment Needs (see comment);Pain Recommendation Comments Needs return [...] 01/29/15831 Date of Service: 01/29/15830 Status: Signed [place] Operator: Malick Ramos RN (Registered Nurse) Infection Prevention Note: Patient stool is positive for C. Diff. Contact Enteric Precautions are required until furt her notice. Thank you. Malick Ramos RN, BA, Stone [employer] onver alessandro Transaction, Provider Unknown - 01/28/2015 3:23 PM PDT Progress Notes by Jimena Duarte RPH at 01/28/151522 Author: Jimena Duarte RPH Service: (none) Author Type: Pharmacist Filed: 01/28/15 152 Date of Service: 01/28/151522 Status: Signed [place] Operator: Jimena Duarte RPH (Pharmacist) Zosyn Extended Infusion Initial Consult-Per Dr. Jacob Ernst 69 y.o. female CrCl cannot be calculated (Unknown ideal weight.). NEUTROPHILS ABS Date Value Ref Range Status 01/18/2015 3.26 1.90 - 7.40 K/uL Final Comment: Testing performed at [facility], [address] [place] [address] CREATININE Date Value Ref Range Status 01/19/2015 0.96 0.50 - 1.00 mg/dL Final Comment: Testing performed at [facility], [address] [place] [address] Zosyn extended Infusion loading and maintenance dose guidelines Loading Dose 4.5 g IV Over 30 minutes CrCl >20 ml/min 3.375 g IV Q 8 hours Over 4 hours CrCl 10-20 ml/min 3.375 g IV Q 12 hours Over 4 hours CrCl <10, HD, PD Follow [facility] Dosage Adjustments in Renal Dysfunction Protocol Plan [...] 01/28/151515 Date of Service: 01/28/151515 Status: Signed [place] Operator: Jimena Duarte RPH (Pharmacist) Renal Dosing [...] | | | | | [place] [address] | | | | + + + + + + | RED CELL | 2.72 (L)Comment: Testing | 3.70 - 5.10 | EXTERNAL | | | COUNT | performed at [facility], [address] | M/uL | LAB | | | | [address], | | | | | | [place] [address] | | | | + + + + + + | Hgb | 9.6 (L)Comment: Testing | 11.3 - 15.5 | EXTERNAL | | | | performed at [facility], [address] | g/dL | LAB | | | | [address], | | | | | | [place] [address] | | | | + + + + + + | Hematocrit, | 28.8 (L)Comment: Testing | 34.0 - 46.0 % | EXTERNAL | | | POC | performed at [facility], [address] | | LAB | | | | [address], | | | | | | [place] [address] | | | | + + + + + + | MCV | 106.0 (H)Comment: | 80.0 - 100.0 fl | EXTERNAL | | | | Testing performed at | | LAB | | | | [facility], [address] | | | | | | [place] | | | | | | [address] | | | | + + + + + + | MCH | 35.2 (H)Comment: Testing | 27.0 - 34.0 pg | EXTERNAL | | | | performed at [facility], [address] | | LAB | | | | [address], | | | | | | [place] [address] | | | | + + + + + + | MCHC | 33.2Comment: Testing | 32.0 - 35.5 | EXTERNAL | | | | performed at [facility], [address] | g/dL | LAB | | | | [address], | | | | | | [place] [address] | | | | + + + + + + | RDW-CV | 53.4 (H)Comment: Testing | 37 - 53 fl | EXTERNAL | | | | performed at [facility], [address] | | LAB | | | | [address], | | | | | | [place] [address] | | | | + + + + + + | Platelet | 216Comment: Testing | 150 - 400 K/uL | EXTERNAL | | | Count | performed at [facility], [address] | | LAB | | | Plasma | [address], | | | | | | [place] [address] | | | | + + + + + + | MPV | 10.5Comment: Testing | fl | EXTERNAL | | | | performed at [facility], [address] | | LAB | | | | [address], | | | | | | [place], [place] [address] | | | | + + + + + + | Differentia | MANUALComment: Testing | | EXTERNAL | | | l Type | performed at [facility], [address] | | LAB | | | | [address], | | | | | | [place], [place] [address] | | | | + + + + + + | Segmented | 35Comment: Testing | % | EXTERNAL | | | Neutrophils | performed at [facility], [address] | | LAB | | | Manual | [address], | | | | | | [place] [address] | | | | + + + + + + | % Bands | 1Comment: Testing | % | EXTERNAL | | | | performed at [facility], [address] | | LAB | | | | [address], | | | | | | [place] [address] | | | | + + + + + + | Lymphocytes | 44Comment: Testing | % | EXTERNAL | | | Manual | performed at [facility], [address] | | LAB | | | | [address], | | | | | | [place] [address] | | | | + + + + + + | Monocytes | 12Comment: Testing | % | EXTERNAL | | | Manual | performed at [facility], [address] | | LAB | | | | [address], | | | | | | [place] [address] | | | | + + + + + + | Eosinophils | 8Comment: Testing | % | EXTERNAL | | | Manual | performed at [facility], [address] | | LAB | | | | [address], | | | | | | [place] [address] | | | | + + + + + + | Absolute | 3.08Comment: Testing | 1.90 - 7.40 | EXTERNAL | | | Neutrophils | performed at [facility], [address] | K/uL | LAB | | | | [address], | | | | | | [place] [address] | | | | + + + + + + | Bands | 0.09Comment: Testing | 0.00 - 0.20 | EXTERNAL | | | Manual | performed at [facility], [address] | K/uL | LAB | | | | [address], | | | | | | [place] [address] | | | | + + + + + + | Absolute | 3.88Comment: Testing | 1.00 - 3.90 | EXTERNAL | | | Lymphocytes | performed at [facility], [address] | K/uL | LAB | | | | [address], | | | | | | [place] [address] | | | | + + + + + + | Absolute | 1.06 (H)Comment: Testing | 0.00 - 0.80 | EXTERNAL | | | Monocytes | performed at [facility], [address] | K/uL | LAB | | | | [address], | | | | | | [place] [address] | | | | + + + + + + | Absolute | 0.70 (H)Comment: Testing | 0.00 - 0.50 | EXTERNAL | | | Eosinophils | performed at [facility], [address] | K/uL | LAB | | | | [address], | | | | | | [place] [address] | | | | + + + + + + | RBC | NORMAL PLT MORPHComment: | | EXTERNAL | | | Morphology | NORMAL RBC MORPHTesting | | LAB | | | | performed at [facility], [address] | | | | | | [address], | | | | | | [place] [address] | | | | + + + [...] EXTERNAL | | | | performed at [facility], [address] | | LAB | | | | [address], | | | | | | [place] [address] | | | | + + + [...] EXTERNAL | | | | performed at [facility], [address] | | LAB | | | | [address], | | | | | | [place] [address] | | | | + + + [...] | | | | | [place] [address] | | | | + + + + + + | K | 4.0Comment: Testing | 3.5 - 4.9 | EXTERNAL | | | | performed at [facility], [address] | mmol/L | LAB | | | | [address] [place], | | | | | | [place] [address] | | | | + + + + + + | Cl | 102Comment: Testing | 99 - 109 mmol/L | EXTERNAL | | | | performed at [facility], [address] | | LAB | | | | [address] [place], | | | | | | [place] [address] | | | | + + + + + + | CO2 | 33 (H)Comment: Testing | 23 - 32 mmol/L | EXTERNAL | | | | performed at [facility], [address] | | LAB | | | | [address], | | | | | | [place] [address] | | | | + + + + + + | Anion Gap | 5Comment: Testing | 5 - 20 mmol/L | EXTERNAL | | | | performed at [facility], [address] | | LAB | | | | [address], | | | | | | [place] [address] | | | | + + + + + + | Glucose, | 105 (H)Comment: Testing | 65 - 99 mg/dL | EXTERNAL | | | Fasting | performed at [facility], [address] | | LAB | | | | [address], | | | | | | [place] [address] | | | | + + + + + + | BUN | 9Comment: Testing | 8 - 25 mg/dL | EXTERNAL | | | | performed at [facility], [address] | | LAB | | | | [address], | | | | | | [place] [address] | | | | + + + + + + | Creatinine | 0.82Comment: Testing | 0.50 - 1.00 | EXTERNAL | | | | performed at [facility], [address] | mg/dL | LAB | | | | [address], | | | | | | [place] [address] | | | | + + + + + + | BUN/Creatin | 11Comment: Testing | | EXTERNAL | | | ine Ratio | performed at [facility], [address] | | LAB | | | | [address], | | | | | | [place] [address] | | | | + + + + + + | Calcium | 8.5Comment: Testing | 8.5 - 10.5 | EXTERNAL | | | | performed at [facility], [address] | mg/dL | LAB | | | | [address] [place], | | | | | | [place] [address] | | | | + + + + + + | Protein, | 6.3Comment: Testing | 6.3 - 8.2 g/dL | EXTERNAL | | | Total | performed at [facility], [address] | | LAB | | | | [address], | | | | | | [place] [address] | | | | + + + + + + | Albumin | 2.8 (L)Comment: Testing | 3.3 - 4.8 g/dL | EXTERNAL | | | | performed at [facility], [address] | | LAB | | | | [address], | | | | | | [place] [address] | | | | + + + + + + | Globulin | 3.5Comment: Testing | 1.3 - 4.9 g/dL | EXTERNAL | | | | performed at [facility], [address] | | LAB | | | | [address], | | | | | | [place] [address] | | | | + + + + + + | A/G Ratio | 0.8 (L)Comment: Testing | 1.0 - 2.4 | EXTERNAL | | | | performed at [facility], [address] | | LAB | | | | [address], | | | | | | [place] [address] | | | | + + + [...] | | | | | [place] [address] | | | | + + + + + + | AST | 53 (H)Comment: Testing | 10 - 45 U/L | EXTERNAL | | | | performed at [facility], [address] | | LAB | | | | [address], | | | | | | [place] [address] | | | | + + + + + + | ALT | 21Comment: Testing | 10 - 65 U/L | EXTERNAL | | | | performed at [facility], [address] | | LAB | | | | [address], | | | | | | [place] [address] | | | | + + + [...] | | | | | | at [facility], [address] | | | | | | [address] [facility], | | | | | | [place] [address] | | | | + + + [...] | LAB | | | | [address];[place], [place] | | | | | | [address] | | | | + + + [...] | LAB | | | | [address] [place] | | | | | | [address] | | | | + + + [...] EXTERNAL | | | | performed at [facility], [address] | K/uL | LAB | | | | [address], | | | | | | [place] [address] | | | | + + + + + + | RED CELL | 2.78 (L)Comment: Testing | 3.70 - 5.10 | EXTERNAL | | | COUNT | performed at [facility], [address] | M/uL | LAB | | | | [address], | | | | | | [place] [address] | | | | + + + + + + | Hgb | 9.7 (L)Comment: Testing | 11.3 - 15.5 | EXTERNAL | | | | performed at [facility], [address] | g/dL | LAB | | | | [address], | | | | | | [place] [address] | | | | + + + + + + | Hematocrit, | 29.6 (L)Comment: Testing | 34.0 - 46.0 % | EXTERNAL | | | POC | performed at [facility], [address] | | LAB | | | | [address], | | | | | | [place] [address] | | | | + + + + + + | MCV | 106.3 (H)Comment: | 80.0 - 100.0 fl | EXTERNAL | | | | Testing performed at | | LAB | | | | [facility], [address] [facility] | | | | | | [place] | | | | | | [address] | | | | + + + + + + | MCH | 34.8 (H)Comment: Testing | 27.0 - 34.0 pg | EXTERNAL | | | | performed at [facility], [address] | | LAB | | | | [address], | | | | | | [place] [address] | | | | + + + + + + | MCHC | 32.8Comment: Testing | 32.0 - 35.5 | EXTERNAL | | | | performed at [facility], [address] | g/dL | LAB | | | | [address], | | | | | | [place] [address] | | | | + + + + + + | RDW-CV | 53.8 (H)Comment: Testing | 37 - 53 fl | EXTERNAL | | | | performed at [facility], [address] | | LAB | | | | [address], | | | | | | [place] [address] | | | | + + + + + + | Platelet | 181Comment: Testing | 150 - 400 K/uL | EXTERNAL | | | Count | performed at [facility], [address] | | LAB | | | Plasma | [address], | | | | | | [place] [address] | | | | + + + + + + | MPV | 11.3Comment: Testing | fl | EXTERNAL | | | | performed at [facility], [address] | | LAB | | | | [address], | | | | | | [place] [address] | | | | + + + + + + | Differentia | MANUALComment: Testing | | EXTERNAL | | | l Type | performed at [facility], [address] | | LAB | | | | [address], | | | | | | [place] [address] | | | | + + + + + + | Segmented | 45Comment: Testing | % | EXTERNAL | | | Neutrophils | performed at [facility], [address] | | LAB | | | Manual | [address], | | | | | | [place] [address] | | | | + + + + + + | % Bands | 1Comment: Testing | % | EXTERNAL | | | | performed at [facility], [address] | | LAB | | | | [address], | | | | | | [place] [address] | | | | + + + + + + | Lymphocytes | 35Comment: Testing | % | EXTERNAL | | | Manual | performed at [facility], [address] | | LAB | | | | [address], | | | | | | [place], [place] [address] | | | | + + + + + + | Monocytes | 11Comment: Testing | % | EXTERNAL | | | Manual | performed at [facility], [address] | | LAB | | | | [address], | | | | | | [place] [address] | | | | + + + + + + | Eosinophils | 8Comment: Testing | % | EXTERNAL | | | Manual | performed at [facility], [address] | | LAB | | | | [address], | | | | | | [place] [address] | | | | + + + + + + | Absolute | 3.85Comment: Testing | 1.90 - 7.40 | EXTERNAL | | | Neutrophils | performed at [facility], [address] | K/uL | LAB | | | | [address], | | | | | | [place] [address] | | | | + + + + + + | Bands | 0.09Comment: Testing | 0.00 - 0.20 | EXTERNAL | | | Manual | performed at [facility], [address] | K/uL | LAB | | | | [address], | | | | | | [place] [address] | | | | + + + + + + | Absolute | 3.01Comment: Testing | 1.00 - 3.90 | EXTERNAL | | | Lymphocytes | performed at [facility], [address] | K/uL | LAB | | | | [address], | | | | | | [place] [address] | | | | + + + + + + | Absolute | 0.95 (H)Comment: Testing | 0.00 - 0.80 | EXTERNAL | | | Monocytes | performed at [facility], [address] | K/uL | LAB | | | | [address], | | | | | | [place] [address] | | | | + + + + + + | Absolute | 0.69 (H)Comment: Testing | 0.00 - 0.50 | EXTERNAL | | | Eosinophils | performed at [facility], [address] | K/uL | LAB | | | | [address], | | | | | | [place] [address] | | | | + + + + + + | RBC | 2+Comment: MACRONORMAL | | EXTERNAL | | | Morphology | PLT MORPHTesting | | LAB | | | | performed at [facility], [address] | | | | | | [address], | | | | | | [place] [address] | | | | | | | [...] | | | | | [place] [address] | | | | + + + [...] EXTERNAL | | | | performed at [facility], [address] | | LAB | | | | [address], | | | | | | [place] [address] | | | | + + + [...] | | | | | [place] [address] | | | | + + + + + + | K | 3.2 (L)Comment: Testing | 3.5 - 4.9 | EXTERNAL | | | | performed at [facility], [address] | mmol/L | LAB | | | | [address], | | | | | | [place] [address] | | | | + + + + + + | Cl | 103Comment: Testing | 99 - 109 mmol/L | EXTERNAL | | | | performed at [facility], [address] | | LATA | | | | [address], | | | | | | [place] [address] | | | | + + + + + + | CO2 | 31Comment: Testing | 23 - 32 mmol/L | EXTERNAL | | | | performed at [facility], [address] | | LAB | | | | [address], | | | | | | [place] [address] | | | | + + + + + + | Anion Gap | 7Comment: Testing | 5 - 20 mmol/L | EXTERNAL | | | | performed at [facility], [address] | | LAB | | | | [address], | | | | | | [place] [address] | | | | + + + + + + | Glucose, | 104 (H)Comment: Testing | 65 - 99 mg/dL | EXTERNAL | | | Fasting | performed at [facility], [address] | | LAB | | | | [address], | | | | | | [place] [address] | | | | + + + + + + | BUN | 10Comment: Testing | 8 - 25 mg/dL | EXTERNAL | | | | performed at [facility], [address] | | LAB | | | | [address], | | | | | | [place] [address] | | | | + + + + + + | Creatinine | 0.83Comment: Testing | 0.50 - 1.00 | EXTERNAL | | | | performed at [facility], [address] | mg/dL | LAB | | | | [address], | | | | | | [place] [address] | | | | + + + + + + | BUN/Creatin | 12Comment: Testing | | EXTERNAL | | | ine Ratio | performed at [facility], [address] | | LAB | | | | [address], | | | | | | [place] [address] | | | | + + + + + + | Calcium | 8.2 (L)Comment: Testing | 8.5 - 10.5 | EXTERNAL | | | | performed at [facility], [address] | mg/dL | LAB | | | | [address], | | | | | | [place] [address] | | | | + + + + + + | Protein, | 6.2 (L)Comment: Testing | 6.3 - 8.2 g/dL | EXTERNAL | | | Total | performed at [facility], [address] | | LAB | | | | [address], | | | | | | [place] [address] | | | | + + + + + + | Albumin | 2.7 (L)Comment: Testing | 3.3 - 4.8 g/dL | EXTERNAL | | | | performed at [facility], [address] | | LAB | | | | [address], | | | | | | [place] [address] | | | | + + + + + + | Globulin | 3.5Comment: Testing | 1.3 - 4.9 g/dL | EXTERNAL | | | | performed at [facility], [address] | | LAB | | | | [address], | | | | | | [place] [address] | | | | + + + + + + | A/G Ratio | 0.8 (L)Comment: Testing | 1.0 - 2.4 | EXTERNAL | | | | performed at [facility], [address] | | LAB | | | | [address], | | | | | | [place] [address] | | | | + + + + + + | Bilirubin | 0.5Comment: Testing | 0.1 - 1.5 mg/dL | EXTERNAL | | | Total | performed at [facility], [address] | | LAB | | | | [address], | | | | | | [place] [address] | | | | + + + + + + | ALP, | 98Comment: Testing | 35 - 115 U/L | EXTERNAL | | | External | performed at [facility], [address] | | LAB | | | | [address], | | | | | | [place] [address] | | | | + + + + + + | AST | 35Comment: Testing | 10 - 45 U/L | EXTERNAL | | | | performed at [facility], [address] | | LAB | | | | [address], | | | | | | [place] [address] | | | | + + + + + + | ALT | 15Comment: Testing | 10 - 65 U/L | EXTERNAL | | | | performed at [facility], [address] | | LAB | | | | [address], | | | | | | [place] [address] | | | | + + + [...] [address], | | | | | | [place] [address] | | | | + + + [...] EXTERNAL | | | | performed at [facility], [address] | | LAB | | | | [address], | | | | | | [place] [address] | | | | + + + [...] | | | B-12 | performed at [facility], [address] | pg/mL | LAB | | | | [address], | | | | | | [place] [address] | | | | + + + [...] EXTERNAL | | | | performed at [facility], [address] | K/uL | LAB | | | | [address], | | | | | | [place] [address] | | | | + + + + + + | RED CELL | 2.72 (L)Comment: Testing | 3.70 - 5.10 | EXTERNAL | | | COUNT | performed at [facility], [address] | M/uL | LAB | | | | [address], | | | | | | [place] [address] | | | | + + + + + + | Hgb | 9.4 (L)Comment: Testing | 11.3 - 15.5 | EXTERNAL | | | | performed at [facility], [address] | g/dL | LAB | | | | [address], | | | | | | [place] [address] | | | | + + + + + + | Hematocrit, | 29.1 (L)Comment: Testing | 34.0 - 46.0 % | EXTERNAL | | | POC | performed at [facility], [address] | | LAB | | | | [address], | | | | | | [place] [address] | | | | + + + + + + | MCV | 107.3 (H)Comment: | 80.0 - 100.0 fl | EXTERNAL | | | | Testing performed at | | LAB | | | | [facility], [address] [facility] | | | | | | [place] | | | | | | [address] | | | | + + + + + + | MCH | 34.6 (H)Comment: Testing | 27.0 - 34.0 pg | EXTERNAL | | | | performed at [facility], [address] | | LAB | | | | [address], | | | | | | [place] [address] | | | | + + + + + + | MCHC | 32.2Comment: Testing | 32.0 - 35.5 | EXTERNAL | | | | performed at [facility], [address] | g/dL | LAB | | | | [address], | | | | | | [place] [address] | | | | + + + + + + | RDW-CV | 57.3 (H)Comment: Testing | 37 - 53 fl | EXTERNAL | | | | performed at [facility], [address] | | LAB | | | | [address], | | | | | | [place] [address] | | | | + + + [...] | | | | | | [place] [address] | | | | + + + + + + | Differentia | MANUALComment: Testing | | EXTERNAL | | | l Type | performed at [facility], [address] | | LAB | | | | [address], | | | | | | [place], [place] [address] | | | | + + + + + + | Segmented | 45Comment: Testing | % | EXTERNAL | | | Neutrophils | performed at [facility], [address] | | LAB | | | Manual | [address], | | | | | | [place], [place] [address] | | | | + + + + + + | % Bands | 1Comment: Testing | % | EXTERNAL | | | | performed at [facility], [address] | | LAB | | | | [address], | | | | | | [place], [place] [address] | | | | + + + + + + | Lymphocytes | 34Comment: Testing | % | EXTERNAL | | | Manual | performed at [facility], [address] | | LAB | | | | [address], | | | | | | [place] [address] | | | | + + + + + + | Monocytes | 11Comment: Testing | % | EXTERNAL | | | Manual | performed at [facility], [address] | | LAB | | | | [address], | | | | | | [place] [address] | | | | + + + + + + | Eosinophils | 9Comment: Testing | % | EXTERNAL | | | Manual | performed at [facility], [address] | | LAB | | | | [address], | | | | | | [place] [address] | | | | + + + + + + | Absolute | 3.77Comment: Testing | 1.90 - 7.40 | EXTERNAL | | | Neutrophils | performed at [facility], [address] | K/uL | LAB | | | | [address], | | | | | | [place] [address] | | | | + + + + + + | Bands | 0.08Comment: Testing | 0.00 - 0.20 | EXTERNAL | | | Manual | performed at [facility], [address] | K/uL | LAB | | | | [address], | | | | | | [place] [address] | | | | + + + + + + | Absolute | 2.84Comment: Testing | 1.00 - 3.90 | EXTERNAL | | | Lymphocytes | performed at [facility], [address] | K/uL | LAB | | | | [address], | | | | | | [place] [address] | | | | + + + + + + | Absolute | 0.92 (H)Comment: Testing | 0.00 - 0.80 | EXTERNAL | | | Monocytes | performed at [facility], [address] | K/uL | LAB | | | | [address], | | | | | | [place] [address] | | | | + + + + + + | Absolute | 0.75 (H)Comment: Testing | 0.00 - 0.50 | EXTERNAL | | | Eosinophils | performed at [facility], [address] | K/uL | LAB | | | | [address], | | | | | | [place] [address] | | | | + + + + + + | RBC | NORMAL PLT MORPHComment: | | EXTERNAL | | | Morphology | NORMAL RBC MORPHTesting | | LAB | | | | performed at [facility], [address] | | | | | | [address], | | | | | | [place] [address] | | | | + + + [...] EXTERNAL | | | | performed at [facility], [address] | | LAB | | | | [address], | | | | | | [place] [address] | | | | + + + [...] | | | | | [place] [address] | | | | + + + [...] | | | | | [place] [address] | | | | + + + + + + | K | 3.8Comment: Testing | 3.5 - 4.9 | EXTERNAL | | | | performed at [facility], [address] | mmol/L | LAB | | | | [address], | | | | | | [place] [address] | | | | + + + [...] | | | | | [place] [address] | | | | + + + + + + | Anion Gap | 5Comment: Testing | 5 - 20 mmol/L | EXTERNAL | | | | performed at [facility], [address] | | LAB | | | | [address], | | | | | | [place] [address] | | | | + + + + + + | Glucose, | 112 (H)Comment: Testing | 65 - 99 mg/dL | EXTERNAL | | | Fasting | performed at [facility], [address] | | LAB | | | | [address], | | | | | | [place] [address] | | | | + + + + + + | BUN | 13Comment: Testing | 8 - 25 mg/dL | EXTERNAL | | | | performed at [facility], [address] | | LAB | | | | [address], | | | | | | [place] [address] | | | | + + + + + + | Creatinine | 0.74Comment: Testing | 0.50 - 1.00 | EXTERNAL | | | | performed at [facility], [address] | mg/dL | LAB | | | | [address], | | | | | | [place] [address] | | | | + + + + + + | BUN/Creatin | 18Comment: Testing | | EXTERNAL | | | ine Ratio | performed at [facility], [address] | | LAB | | | | [address], | | | | | | [place] [address] | | | | + + + + + + | Calcium | 8.0 (L)Comment: Testing | 8.5 - 10.5 | EXTERNAL | | | | performed at [facility], [address] | mg/dL | LAB | | | | [address], | | | | | | [place] [address] | | | | + + + + + + | Protein, | 5.9 (L)Comment: Testing | 6.3 - 8.2 g/dL | EXTERNAL | | | Total | performed at [facility], [address] | | LAB | | | | [address], | | | | | | [place] [address] | | | | + + + [...] | | | | | [place] [address] | | | | + + + + + + | A/G Ratio | 0.8 (L)Comment: Testing | 1.0 - 2.4 | EXTERNAL | | | | performed at [facility], [address] | | LAB | | | | [address], | | | | | | [place] [address] | | | | + + + + + + | Bilirubin | 0.4Comment: Testing | 0.1 - 1.5 mg/dL | EXTERNAL | | | Total | performed at [facility], [address] | | LAB | | | | [address], | | | | | | [place] [address] | | | | + + + + + + | ALP, | 93Comment: Testing | 35 - 115 U/L | EXTERNAL | | | External | performed at [facility], [address] | | LAB | | | | [address], | | | | | | [place] [address] | | | | + + + + + + | AST | 23Comment: Testing | 10 - 45 U/L | EXTERNAL | | | | performed at [facility], [address] | | LAB | | | | [address], | | | | | | [place] [address] | | | | + + + + + + | ALT | 14Comment: Testing | 10 - 65 U/L | EXTERNAL | | | | performed at [facility], [address] | | LAB | | | | [address], | | | | | | [place] [address] | | | | + + + [...] | | | | | [place] [address] | | | | + + + [...] EXTERNAL | | | | performed at [facility], [address] | K/uL | LAB | | | | [address], | | | | | | [place] [address] | | | | + + + + + + | RED CELL | 2.78 (L)Comment: Testing | 3.70 - 5.10 | EXTERNAL | | | COUNT | performed at [facility], [address] | M/uL | LAB | | | | [address], | | | | | | [place] [address] | | | | + + + + + + | Hgb | 9.7 (L)Comment: Testing | 11.3 - 15.5 | EXTERNAL | | | | performed at [facility], [address] | g/dL | LAB | | | | [address], | | | | | | [place] [address] | | | | + + + + + + | Hematocrit, | 29.9 (L)Comment: Testing | 34.0 - 46.0 % | EXTERNAL | | | POC | performed at [facility], [address] | | LAB | | | | [address], | | | | | | [place] [address] | | | | + + + + + + | MCV | 107.5 (H)Comment: | 80.0 - 100.0 fl | EXTERNAL | | | | Testing performed at | | LAB | | | | [facility], [address] [facility] | | | | | | [place] | | | | | | [address] | | | | + + + + + + | MCH | 34.9 (H)Comment: Testing | 27.0 - 34.0 pg | EXTERNAL | | | | performed at [facility], [address] | | LAB | | | | [address], | | | | | | [place] [address] | | | | + + + + + + | MCHC | 32.5Comment: Testing | 32.0 - 35.5 | EXTERNAL | | | | performed at [facility], [address] | g/dL | LAB | | | | [address], | | | | | | [place] [address] | | | | + + + + + + | RDW-CV | 57.3 (H)Comment: Testing | 37 - 53 fl | EXTERNAL | | | | performed at [facility], [address] | | LAB | | | | [address], | | | | | | [place] [address] | | | | + + + + + + | Platelet | 162Comment: Testing | 150 - 400 K/uL | EXTERNAL | | | Count | performed at [facility], [address] | | LAB | | | Plasma | [address], | | | | | | [place] [address] | | | | + + + + + + | MPV | 11.6Comment: Testing | fl | EXTERNAL | | | | performed at [facility], [address] | | LAB | | | | [address], | | | | | | [place], [place] [address] | | | | + + + + + + | Differentia | MANUALComment: Testing | | EXTERNAL | | | l Type | performed at [facility], [address] | | LAB | | | | [address], | | | | | | [place], [place] [address] | | | | + + + + + + | Segmented | 31Comment: Testing | % | EXTERNAL | | | Neutrophils | performed at [facility], [address] | | LAB | | | Manual | [address], | | | | | | [place], [place] [address] | | | | + + + + + + | Lymphocytes | 52Comment: Testing | % | EXTERNAL | | | Manual | performed at [facility], [address] | | LAB | | | | [address], | | | | | | [place] [address] | | | | + + + + + + | Monocytes | 11Comment: Testing | % | EXTERNAL | | | Manual | performed at [facility], [address] | | LAB | | | | [address], | | | | | | [place] [address] | | | | + + + + + + | Eosinophils | 6Comment: Testing | % | EXTERNAL | | | Manual | performed at [facility], [address] | | LAB | | | | [address], | | | | | | [place] [address] | | | | + + + + + + | Absolute | 3.19Comment: Testing | 1.90 - 7.40 | EXTERNAL | | | Neutrophils | performed at [facility], [address] | K/uL | LAB | | | | [address], | | | | | | [place] [address] | | | | + + + + + + | Absolute | 5.36 (H)Comment: Testing | 1.00 - 3.90 | EXTERNAL | | | Lymphocytes | performed at [facility], [address] | K/uL | LAB | | | | [address], | | | | | | [place] [address] | | | | + + + + + + | Absolute | 1.13 (H)Comment: Testing | 0.00 - 0.80 | EXTERNAL | | | Monocytes | performed at [facility], [address] | K/uL | LAB | | | | [address], | | | | | | [place] [address] | | | | + + + + + + | Absolute | 0.62 (H)Comment: Testing | 0.00 - 0.50 | EXTERNAL | | | Eosinophils | performed at [facility], [address] | K/uL | LAB | | | | [address], | | | | | | [place] [address] | | | | + + + + + + | RBC | 2+Comment: MACRONORMAL | | EXTERNAL | | | Morphology | PLT MORPHTesting | | LAB | | | | performed at [facility], [address] | | | | | | [address], | | | | | | [place] [address] | | | | | | | [...] EXTERNAL | | | | performed at [facility], [address] | | LAB | | | | [address], | | | | | | [place] [address] | | | | + + + [...] EXTERNAL | | | | performed at [facility], [address] | | LAB | | | | [address], | | | | | | [place] [address] | | | | + + + [...] | | | | | [place] [address] | | | | + + + + + + | K | 4.2Comment: Testing | 3.5 - 4.9 | EXTERNAL | | | | performed at [facility], [address] | mmol/L | LAB | | | | [address], | | | | | | [place] [address] | | | | + + + + + + | Cl | 112 (H)Comment: Testing | 99 - 109 mmol/L | EXTERNAL | | | | performed at [facility], [address] | | LAB | | | | [address], | | | | | | [place] [address] | | | | + + + + + + | CO2 | 27Comment: Testing | 23 - 32 mmol/L | EXTERNAL | | | | performed at [facility], [address] | | LAB | | | | [address], | | | | | | [place] [address] | | | | + + + + + + | Anion Gap | 4 (L)Comment: Testing | 5 - 20 mmol/L | EXTERNAL | | | | performed at [facility], [address] | | LAB | | | | [address], | | | | | | [place] [address] | | | | + + + + + + | Glucose, | 94Comment: Testing | 65 - 99 mg/dL | EXTERNAL | | | Fasting | performed at [facility], [address] | | LAB | | | | [address], | | | | | | [place] [address] | | | | + + + + + + | BUN | 19Comment: Testing | 8 - 25 mg/dL | EXTERNAL | | | | performed at [facility], [address] | | LAB | | | | [address], | | | | | | [place] [address] | | | | + + + + + + | Creatinine | 1.01 (H)Comment: Testing | 0.50 - 1.00 | EXTERNAL | | | | performed at [facility], [address] | mg/dL | LAB | | | | [address], | | | | | | [place] [address] | | | | + + + + + + | BUN/Creatin | 19Comment: Testing | | EXTERNAL | | | ine Ratio | performed at [facility], [address] | | LAB | | | | [address], | | | | | | [place] [address] | | | | + + + + + + | Calcium | 8.1 (L)Comment: Testing | 8.5 - 10.5 | EXTERNAL | | | | performed at [facility], [address] | mg/dL | LAB | | | | [address], | | | | | | [place] [address] | | | | + + + + + + | Protein, | 5.9 (L)Comment: Testing | 6.3 - 8.2 g/dL | EXTERNAL | | | Total | performed at [facility], [address] | | LAB | | | | [address], | | | | | | [place] [address] | | | | + + + + + + | Albumin | 2.5 (L)Comment: Testing | 3.3 - 4.8 g/dL | EXTERNAL | | | | performed at [facility], [address] | | LAB | | | | [address], | | | | | | [place] [address] | | | | + + + + + + | Globulin | 3.4Comment: Testing | 1.3 - 4.9 g/dL | EXTERNAL | | | | performed at [facility], [address] | | LAB | | | | [address], | | | | | | [place] [address] | | | | + + + + + + | A/G Ratio | 0.7 (L)Comment: Testing | 1.0 - 2.4 | EXTERNAL | | | | performed at [facility], [address] | | LAB | | | | [address], | | | | | | [place] [address] | | | | + + + + + + | Bilirubin | 0.3Comment: Testing | 0.1 - 1.5 mg/dL | EXTERNAL | | | Total | performed at [facility], [address] | | LAB | | | | [address], | | | | | | [place] [address] | | | | + + + + + + | ALP, | 98Comment: Testing | 35 - 115 U/L | EXTERNAL | | | External | performed at [facility], [address] | | LAB | | | | [address], | | | | | | [place] [address] | | | | + + + + + + | AST | 24Comment: Testing | 10 - 45 U/L | EXTERNAL | | | | performed at [facility], [address] | | LAB | | | | [address], | | | | | | [place] [address] | | | | + + + + + + | ALT | 14Comment: Testing | 10 - 65 U/L | EXTERNAL | | | | performed at [facility], [address] | | LAB | | | | [facility], | | | | | | [place] [address] | | | | + + + [...] W | | | | | | [facility], | | | | | | [place] [address] | | | | + + + [...] [place] | | | | | | [address] | | | | + + +---- + + + | RED CELL | 2.93 (L)Comment: Testing | 3.7 0 - 5.10 | EXTERNAL | | | COUNT | performed at [facility], [address] | LAB | | | | [address], | | | | | | [place] [address] | | | | + + +---- + + + | Hgb | 10.2 (L)Comment: Testing | 11. 3 - 15.5 | EXTERNAL | | | | performed at [facility], [address] | g/d L | LAB | | | | [address], | | | | | | [place] [address] | | | | + + +---- + + + | Hematocrit, | 31.6 (L)Comment: Testing | 34. 0 - 46.0 % | EXTERNAL | | | POC | performed at [facility], [address] | | LAB | | | | [address], | | | | | | [place] [address] | | | | + + +---- + + + | MCV | 107.8 (H)Comment: | 80. 0 - 100.0 fl | EXTERNAL | | | | Testing performed at | | LAB | | | | [facility], [address] | | | | | | [place] | | | | | | [address] | | | | + + +---- + + + | MCH | 34.8 (H)Comment: Testing | 27. 0 - 34.0 pg | EXTERNAL | | | | performed at [facility], [address] | | LAB | | | | [address], | | | | | | [place] [address] | | | | + + +---- + + + | MCHC | 32.3Comment: Testing | 32. 0 - 35.5 | EXTERNAL | | | | performed at [facility], [address] | g/d L | LAB | | | | [address], | | | | | | [place] [address] | | | | + + +---- + + + | RDW-CV | 57.3 (H)Comment: Testing | 37 - 53 fl | EXTERNAL | | | | performed at [facility], [address] | | LAB | | | | [address], | | | | | | [place] [address] | | | | + + +---- + + + | Platelet | 146 (L)Comment: Testing | 150 - 400 K/uL | EXTERNAL | | | Count | performed at [facility], [address] | | LAB | | | Plasma | [address], | | | | | | [place] [address] | | | | + + +---- + + + | MPV | 11.2Comment: Testing | fl | EXTERNAL | | | | performed at [facility], [address] | | LAB | | | | [address], | | | | | | [place] [address] | | | | + + +---- + + + | Differentia | MANUALComment: Testing | | EXTERNAL | | | l Type | performed at [facility], [address] | | LAB | | | | [address], | | | | | | [place] [address] | | | | + + +---- + + + | Segmented | 58Comment: Testing | % | EXTERNAL | | | Neutrophils | performed at [facility], [address] | | LAB | | | Manual | [address], | | | | | | [place] [address] | | | | + + +---- + + + | % Bands | 20Comment: Testing | % | EXTERNAL | | | | performed at [facility], [address] | | LAB | | | | [address], | | | | | | [place] [address] | | | | + + +---- + + + | Lymphocytes | 13Comment: Testing | % | EXTERNAL | | | Manual | performed at [facility], [address] | | LAB | | | | [address], | | | | | | [place] [address] | | | | + + +---- + + + | Monocytes | 7Comment: Testing | % | EXTERNAL | | | Manual | performed at [facility], [address] | | LAB | | | | [address] [place], | | | | | | [place] [address] | | | | + + +---- + + + | Eosinophils | 2Comment: Testing | % | EXTERNAL | | | Manual | performed at [facility], [address] | | LAB | | | | [place] [place], | | | | | | [place] [address] | | | | + + +---- + + + | Absolute | 9.23 (H)Comment: Testing | 1.9 0 - 7.40 | EXTERNAL | | | Neutrophils | performed at [facility], [address] | [address]/u L | LAB | | | | [address] [place], | | | | | | [place] [address] | | | | + + +---- + + + | Bands | 3.18 (H)Comment: Testing | 0.0 0 - 0.20 | EXTERNAL | | | Manual | performed at [facility], [address] | K/u L | LAB | | | | [address], | | | | | | [place] [address] | | | | + + +---- + + + | Absolute | 2.07Comment: Testing | 1.0 0 - 3.90 | EXTERNAL | | | Lymphocytes | performed at [facility], [address] | K/u L | LAB | | | | [address], | | | | | | [place] [address] | | | | + + +---- + + + | Absolute | 1.11 (H)Comment: Testing | 0.0 0 - 0.80 | EXTERNAL | | | Monocytes | performed at [facility], [address] | [address] L | LAB | | | | [address] [place], | | | | | | [place] [address] | | | | + + +---- + + + | Absolute | 0.32Comment: Testing | 0.0 0 - 0.50 | EXTERNAL | | | Eosinophils | performed at [facility], [address] | K/u L | LAB | | | | [place] [place], | | | | | | [place] [address] | | | | + + +---- + + + | RBC | 2+Comment: | | EXTERNAL | | | Morphology | MACRO1+ANISONORMAL PLT | | LAB | | | | MORPHTesting performed | | | | | | at [facility], [address] | | | | | | [employer], | | | | | | [place] [address] | | | | | |Testing performed at [facility], [address] [place] [address] | | | | | | | [...] EXTERNAL | | | | performed at [facility], [address] | | LAB | | | | [address] [place], | | | | | | [place] [address] | | | | + + + [...] | | | | | [place] [address] | | | | + + + [...] | | | | | [place] [address] | | | | + + + + + + | K | 3.9Comment: Testing | 3.5 - 4.9 | EXTERNAL | | | | performed at [facility], [address] | mmol/L | LAB | | | | [address], | | | | | | [place] [address] | | | | + + + + + + | Cl | 109Comment: Testing | 99 - 109 mmol/L | EXTERNAL | | | | performed at [facility], [address] | | LAB | | | | [address], | | | | | | [place] [address] | | | | + + + + + + | CO2 | 24Comment: Testing | 23 - 32 mmol/L | EXTERNAL | | | | performed at [facility], [address] | | LAB | | | | [address], | | | | | | [place] [address] | | | | + + + + + + | Anion Gap | 8Comment: Testing | 5 - 20 mmol/L | EXTERNAL | | | | performed at [facility], [address] | | LAB | | | | [address], | | | | | | [place] [address] | | | | + + + + + + | Glucose, | 98Comment: Testing | 65 - 99 mg/dL | EXTERNAL | | | Fasting | performed at [facility], [address] | | LAB | | | | [address], | | | | | | [place] [address] | | | | + + + + + + | BUN | 25Comment: Testing | 8 - 25 mg/dL | EXTERNAL | | | | performed at [facility], [address] | | LAB | | | | [address], | | | | | | [place] [address] | | | | + + + + + + | Creatinine | 1.39 (H)Comment: Testing | 0.50 - 1.00 | EXTERNAL | | | | performed at [facility], [address] | mg/dL | LAB | | | | [address], | | | | | | [place] [address] | | | | + + + + + + | BUN/Creatin | 18Comment: Testing | | EXTERNAL | | | ine Ratio | performed at [facility], [address] | | LAB | | | | [address], | | | | | | [place] [address] | | | | + + + + + + | Calcium | 8.2 (L)Comment: Testing | 8.5 - 10.5 | EXTERNAL | | | | performed at [facility], [address] | mg/dL | LAB | | | | [address], | | | | | | [place] [address] | | | | + + + + + + | Protein, | 6.1 (L)Comment: Testing | 6.3 - 8.2 g/dL | EXTERNAL | | | Total | performed at [facility], [address] | | LAB | | | | [address], | | | | | | [place] [address] | | | | + + + + + + | Albumin | 2.4 (L)Comment: Testing | 3.3 - 4.8 g/dL | EXTERNAL | | | | performed at [facility], [address] | | LAB | | | | [address], | | | | | | [place] [address] | | | | + + + + + + | Globulin | 3.7Comment: Testing | 1.3 - 4.9 g/dL | EXTERNAL | | | | performed at [facility], [address] | | LAB | | | | [address], | | | | | | [place] [address] | | | | + + + + + + | A/G Ratio | 0.6 (L)Comment: Testing | 1.0 - 2.4 | EXTERNAL | | | | performed at [facility], [address] | | LAB | | | | [address], | | | | | | [place] [address] | | | | + + + + + + | Bilirubin | 0.4Comment: Testing | 0.1 - 1.5 mg/dL | EXTERNAL | | | Total | performed at [facility], [address] | | LAB | | | | [address], | | | | | | [place] [address] | | | | + + + + + + | ALP, | 111Comment: Testing | 35 - 115 U/L | EXTERNAL | | | External | performed at [facility], [address] | | LAB | | | | [address], | | | | | | [place] [address] | | | | + + + + + + | AST | 29Comment: Testing | 10 - 45 U/L | EXTERNAL | | | | performed at [facility], [address] | | LAB | | | | [address] [place], | | | | | | [place] [address] | | | | + + + + + + | ALT | 14Comment: Testing | 10 - 65 U/L | EXTERNAL | | | | performed at [facility], [address] | | LAB | | [...] | | | | | | at [facility], [address] | | | | | | [address] [place], | | | | | | [place] [address] | | | | + + + [...] | | | | [facility], [address] [facility] | | | | | | [place] | | | | | | [address] | | | | + + + + + + | RED CELL | 3.12 (L)Comment: Testing | 3.70 - 5.10 | EXTERNAL | | | COUNT | performed at [facility], [address] | M/uL | LAB | | | | [address] [place], | | | | | | [place] [address] | | | | + + + + + + | Hgb | 10.8 (L)Comment: Testing | 11.3 - 15.5 | EXTERNAL | | | | performed at [facility], [address] | g/dL | LAB | | | | [address], | | | | | | [place] [address] | | | | + + + + + + | Hematocrit, | 33.7 (L)Comment: Testing | 34.0 - 46.0 % | EXTERNAL | | | POC | performed at [facility], [address] | | LAB | | | | [address] [place], | | | | | | [place] [address] | | | | + + + + + + | MCV | 108.0 (H)Comment: | 80.0 - 100.0 fl | EXTERNAL | | | | Testing performed at | | LAB | | | | [facility], [address] | | | | | | [place] | | | | | | [address] | | | | + + + + + + | MCH | 34.7 (H)Comment: Testing | 27.0 - 34.0 pg | EXTERNAL | | | | performed at [facility], [address] | | LAB | | | | [address] [place], | | | | | | [place] [address] | | | | + + + + + + | MCHC | 32.1Comment: Testing | 32.0 - 35.5 | EXTERNAL | | | | performed at [facility], [address] | g/dL | LAB | | | | [address], | | | | | | [place] [address] | | | | + + + + + + | RDW-CV | 55.6 (H)Comment: Testing | 37 - 53 fl | EXTERNAL | | | | performed at [facility], [address] | | LAB | | | | [address], | | | | | | [place] [address] | | | | + + + + + + | Platelet | 153Comment: Testing | 150 - 400 K/uL | EXTERNAL | | | Count | performed at [facility], [address] | | LAB | | | Plasma | [address], | | | | | | [place] [address] | | | | + + + + + + | MPV | 11.2Comment: Testing | fl | EXTERNAL | | | | performed at [facility], [address] | | LAB | | | | [address], | | | | | | [place], [place] [address] | | | | + + + + + + | Differentia | MANUALComment: Testing | | EXTERNAL | | | l Type | performed at [facility], [address] | | LAB | | | | [address], | | | | | | [place], [place] [address] | | | | + + + + + + | Segmented | 64Comment: Testing | % | EXTERNAL | | | Neutrophils | performed at [facility], [address] | | LAB | | | Manual | [address], | | | | | | [place] [address] | | | | + + + [...] | | | | | [place] [address] | | | | + + + + + + | Lymphocytes | 12Comment: Testing | % | EXTERNAL | | | Manual | performed at [facility], [address] | | LAB | | | | [address], | | | | | | [place] [address] | | | | + + + + + + | Monocytes | 6Comment: Testing | % | EXTERNAL | | | Manual | performed at [facility], [address] | | LAB | | | | [address], | | | | | | [place] [address] | | | | + + + + + + | Eosinophils | 1Comment: Testing | % | EXTERNAL | | | Manual | performed at [facility], [address] | | LAB | | | | [place] [place], | | | | | | [place] [address] | | | | + + + + + + | Absolute | 11.48 (H)Comment: | 1.90 - 7.40 | EXTERNAL | | | Neutrophils | Testing performed at | K/uL | LAB | | | | [facility] [address] [facility] | | | | | | [place] | | | | | | [address] | | | | + + + + + + | Bands | 2.69 (H)Comment: Testing | 0.00 - 0.20 | EXTERNAL | | | Manual | performed at [facility], [address] | K[address]uL | LAB | | | | [address], | | | | | | [place] [address] | | | | + + + + + + | Absolute | 0.36 (H)Comment: Testing | K/uL | EXTERNAL | | | Metamyelocy | performed at [facility], [address] | | LAB | | | [address] | [address] [place], | | | | | | [place] [address] | | | | + + + + + + | Absolute | 2.15Comment: Testing | 1.00 - 3.90 | EXTERNAL | | | Lymphocytes | performed at [facility], [address] | K/uL | LAB | | | | [address], | | | | | | [place] [address] | | | | + + + + + + | Absolute | 1.08 (H)Comment: Testing | 0.00 - 0.80 | EXTERNAL | | | Monocytes | performed at [facility], [address] | K/uL | LAB | | | | [address], | | | | | | [place] [address] | | | | + + + + + + | Absolute | 0.18Comment: Testing | 0.00 - 0.50 | EXTERNAL | | | Eosinophils | performed at [facility], [address] | K/uL | LAB | | | | [address], | | | | | | [place] [address] | | | | + + + + + + | RBC | 2+Comment: MACRONORMAL | | EXTERNAL | | | Morphology | PLT MORPHTesting | | LAB | | | | performed at [facility], [address] | | | | | | [address], | | | | | | [place] [address] | | | | | | | [...] [place] | | | | | | [address] | | | | + + + + + + | K | 3.8Comment: Testing | 3.5 - 4.9 | EXTERNAL | | | | performed at [facility];[address] | mmol/L | LAB | | | | [address];[place] | | | | | | [address] | | | | + + + + + + | Cl | 107Comment: Testing | 99 - 109 mmol/L | EXTERNAL | | | | performed at [facility];[address] | | LAB | | | | [address];[place] | | | | | | [address] | | | | + + + + + + | CO2 | 26Comment: Testing | 23 - 32 mmol/L | EXTERNAL | | | | performed at [facility];[address] | | LAB | | | | [address];[place] | | | | | | [address] | | | | + + + + + + | Anion Gap | 12Comment: Testing | 5 - 20 mmol/L | EXTERNAL | | | | performed at [facility];[address] | | LAB | | | | [address];[place] | | | | | | [address] | | | | + + + + + + | Glucose, | 127 (H)Comment: Testing | 65 - 99 mg/dL | EXTERNAL | | | Fasting | performed at [facility];[address] | | LAB | | | | [address];[place] | | | | | | [address] | | | | + + + + + + | BUN | 28 (H)Comment: Testing | 8 - 25 mg/dL | EXTERNAL | | | | performed at [facility];[address] | | LAB | | | | [address];[place] | | | | | | [address] | | | | + + + + + + | Creatinine | 1.8 (H)Comment: Testing | 0.50 - 1.00 | EXTERNAL | | | | performed at [facility];[address] | mg/dL | LAB | | | | [address];[place] | | | | | | [address] | | | | + + + + + + | BUN/Creatin | 16Comment: Testing | | EXTERNAL | | | ine Ratio | performed at [facility];[address] | | LAB | | | | [address] [place] | | | | | | [address] | | | | + + + + + + | Calcium | 7.6 (L)Comment: Testing | 8.5 - 10.5 | EXTERNAL | | | | performed at [facility];[address] | mg/dL | LAB | | | | [address];[place] | | | | | | [address] | | | | + + + [...] | | | | | Blvd;[place] [address] | | | | + + + [...] | | at [facility];[address] [place] [address] | | | | | | [facility];[place] [address] | | | | + + + [...] LAB | | | | [facility], [address] [facility] | | | | | | [place] | | | | | | [address] | | | | + + +---- + + + | RED CELL | 3.07 (L)Comment: Testing | 3.7 0 - 5.10 | EXTERNAL | | | COUNT | performed at [facility], [address] | M/u L | LAB | | | | [address] [place], | | | | | | [place] [address] | | | | + + +---- + + + | Hgb | 10.8 (L)Comment: Testing | 11. 3 - 15.5 | EXTERNAL | | | | performed at [facility], [address] | g/d L | LAB | | | | [address] [place], | | | | | | [place] [address] | | | | + + +---- + + + | Hematocrit, | 32.7 (L)Comment: Testing | 34. 0 - 46.0 % | EXTERNAL | | | POC | performed at [facility], [address] | | LAB | | | | [address] [place], | | | | | | [place] [address] | | | | + + +---- + + + | MCV | 106.4 (H)Comment: | 80. 0 - 100.0 fl | EXTERNAL | | | | Testing performed at | | LAB | | | | [facility], [address] [facility] | | | | | | [place] | | | | | | [address] | | | | + + +---- + + + | MCH | 35.1 (H)Comment: Testing | 27. 0 - 34.0 pg | EXTERNAL | | | | performed at [facility], [address] | | LAB | | | | [address] [place], | | | | | | [place] [address] | | | | + + +---- + + + | MCHC | 33.0Comment: Testing | 32. 0 - 35.5 | EXTERNAL | | | | performed at [facility], [address] | g/d L | LAB | | | | [address], | | | | | | [place] [address] | | | | + + +---- + + + | RDW-CV | 56.0 (H)Comment: Testing | 37 - 53 fl | EXTERNAL | | | | performed at [facility], [address] | | LAB | | | | [address], | | | | | | [place] [address] | | | | + + +---- + + + | Platelet | 151Comment: Testing | 150 - 400 K/uL | EXTERNAL | | | Count | performed at [facility], [address] | | LAB | | | Plasma | [address], | | | | | | [place] [address] | | | | + + +---- + + + | MPV | 11.7Comment: Testing | fl | EXTERNAL | | | | performed at [facility], [address] | | LAB | | | | [place], | | | | | | [place] [address] | | | | + + +---- + + + | Differentia | MANUALComment: Testing | | EXTERNAL | | | l Type | performed at [facility], [address] | | LAB | | | | [place] [place], | | | | | | [place] [address] | | | | + + +---- + + + | Segmented | 57Comment: Testing | % | EXTERNAL | | | Neutrophils | performed at [facility], [address] | | LAB | | | Manual | [place] [place], | | | | | | [place] [address] | | | | + + +---- + + + | % Bands | 26Comment: Testing | % | EXTERNAL | | | | performed at [facility], [address] | | LAB | | | | [place], | | | | | | [place] [address] | | | | + + +---- + + + | % | 4Comment: Testing | % | EXTERNAL | | | Metamyelocy | performed at [facility], [address] | | LAB | | | [address] | [place], | | | | | | [place] [address] | | | | + + +---- + + + | Lymphocytes | 9Comment: Testing | % | EXTERNAL | | | Manual | performed at [facility], [address] | | LAB | | | | [place] [place], | | | | | | [place] [address] | | | | + + +---- + + + | Monocytes | 4Comment: Testing | % | EXTERNAL | | | Manual | performed at [facility], [address] | | LAB | | | | [place], | | | | | | [place] [address] | | | | + + +---- + + + | Absolute | 10.53 (H)Comment: | 1.9 0 - 7.40 | EXTERNAL | | | Neutrophils | Testing performed at | K/u L | LAB | | | | [facility], [address] | | | | | | [place] | | | | | | [address] | | | | + + +---- + + + | Bands | 4.80 (H)Comment: Testing | 0.0 0 - 0.20 | EXTERNAL | | | Manual | performed at [facility], [address] | K/u L | LAB | | | | [address] [place], | | | | | | [place] [address] | | | | + + +---- + + + | Absolute | 0.74 (H)Comment: Testing | K/u L | EXTERNAL | | | Metamyelocy | performed at [facility], [address] | | LAB | | | [address] | [address] [place], | | | | | | [place] [address] | | | | + + +---- + + + | Absolute | 1.66Comment: Testing | 1.0 0 - 3.90 | EXTERNAL | | | Lymphocytes | performed at [facility], [address] | K/u L | LAB | | | | [address] [place], | | | | | | [place] [address] | | | | + + +---- + + + | Absolute | 0.74Comment: Testing | 0.0 0 - 0.80 | EXTERNAL | | | Monocytes | performed at [facility], [address] | K/u L | LAB | | | [address], | | | | | | [place] [address] | | | | + + +---- + + + | RBC | 2+Comment: | | EXTERNAL | | | Morphology | MACRO1+ANISONORMAL PLT | | LAB | | | | MORPHTesting performed | | | | | | at [facility], [address] | | | | | | [facility], | | | | | | [place] [address] | | | | | |Testing performed at [facility], [address] [facility], [place] [address] | | | | | | | [...] | LAB | | | | [address];[place], [place] | | | | | | [address] | | | | + + + [...] [place] | | | | | | [address] | | | | + + + [...] | LAB | | | | [address] [place], [place] | | | | | | [address] | | | | + + + [...] [place] | | | | | | [address] | | | | + + + + + + | K | 4.4Comment: SPECIMEN | 3.5 - 4.9 | EXTERNAL | | | | SLIGHTLY | mmol/L | LAB | | | | HEMOLYZEDTesting | | | | | | performed at [facility];[address] | | | | | | [address] [place] | | | | | | [address] | | | | + + + + + + | Cl | 106Comment: Testing | 99 - 109 mmol/L | EXTERNAL | | | | performed at [facility];[address] | | LAB | | | | [address] [place] | | | | | | [address] | | | | + + + + + + | CO2 | 24Comment: Testing | 23 - 32 mmol/L | EXTERNAL | | | | performed at [facility];[address] | | LAB | | | | [address];[place] | | | | | | [address] | | | | + + + + + + | Anion Gap | 12Comment: Testing | 5 - 20 mmol/L | EXTERNAL | | | | performed at [facility];[address] | | LAB | | | | [address];[place] | | | | | | [address] | | | | + + + + + + | Glucose, | 103 (H)Comment: Testing | 65 - 99 mg/dL | EXTERNAL | | | Fasting | performed at [facility];[address] | | LAB | | | | [address];[place] | | | | | | [address] | | | | + + + + + + | BUN | 22Comment: Testing | 8 - 25 mg/dL | EXTERNAL | | | | performed at [facility];[address] | | LAB | | | | [address];[place] | | | | | | [address] | | | | + + + + + + | Creatinine | 1.9 (H)Comment: Testing | 0.50 - 1.00 | EXTERNAL | | | | performed at [facility];[address] | mg/dL | LAB | | | | [address];[place] | | | | | | [address] | | | | + + + + + + | BUN/Creatin | 12Comment: Testing | | EXTERNAL | | | ine Ratio | performed at [facility];[address] | | LAB | | | | [address];[place] | | | | | | [address] | | | | + + + + + + | Calcium | 7.4 (L)Comment: Testing | 8.5 - 10.5 | EXTERNAL | | | | performed at [facility];888 | mg/dL | LAB | | | | [address];[place] | | | | | | [address] | | | | + + + + + + | Protein, | 6.5Comment: Testing | 6.3 - 8.2 g/dL | EXTERNAL | | | Total | performed at [facility];[address] | | LAB | | | | [address];[place] | | | | | | [address] | | | | + + + + + + | Albumin | 2.2 (L)Comment: Testing | 3.3 - 4.8 g/dL | EXTERNAL | | | | performed at [facility];[address] | | LAB | | | | [address];[place] | | | | | | [address] | | | | + + + + + + | Globulin | 4.4Comment: Testing | 1.3 - 4.9 g/dL | EXTERNAL | | | | performed at [facility];[address] | | LAB | | | | [address];[place] | | | | | | [address] | | | | + + + + + + | A/G Ratio | 0.5 (L)Comment: Testing | 1.0 - 2.4 | EXTERNAL | | | | performed at [facility];[address] | | LAB | | | | [address];[place] | | | | | | [address] | | | | + + + + + + | Bilirubin | 0.5Comment: Testing | 0.1 - 1.5 mg/dL | EXTERNAL | | | Total | performed at [facility];[address] | | LAB | | | | [address];[place] | | | | | | [address] | | | | + + + + + + | ALP, | 148 (H)Comment: Testing | 35 - 115 U/L | EXTERNAL | | | External | performed at [facility];[address] | | LAB | | | | [address];[place] | | | | | | [address] | | | | + + + + + + | AST | 41Comment: SPECIMEN | 10 - 45 U/L | EXTERNAL | | | | SLIGHTLY | | LAB | | | | HEMOLYZEDTesting | | | | | | performed at [facility];[address] | | | | | | [address] [place] | | | | | | [address] | | | | + + + + + + | ALT | 23Comment: Testing | 10 - 65 U/L | EXTERNAL | | | | performed at [facility];[address] | | LAB | | | | [address];[place] | | | | | | [address] | | | | + + + [...] | | | | | [address];[place] [address] | | | | + + + [...] WORKUP | | | Testing performed at [facility], [address], [place] | | | [address] | | + + + + +---------+ [...] EXTERNAL | | | | performed at [facility], [address] | | LAB | | | | [address], | | | | | | [place] [address] | | | | + + + + + + | Clarity | CLOUDYComment: Testing | | EXTERNAL | | | | performed at [facility], [address] | | LAB | | | | [place] [place], | | | | | | [place] [address] | | | | + + + + + + | Specific | 1.015Comment: Testing | 1.002 - 1.030 | EXTERNAL | | | Circle | performed at [facility], [address] | | LAB | | | | [address], | | | | | | [place] [address] | | | | + + + + + + | Leukocyte | SMALL (A)Comment: | | EXTERNAL | | | Esterase, | Testing performed at | | LAB | | | Urine | [facility], [address] | | | | | | [place] | | | | | | [address] | | | | + + + + + + | Nitrite, | NEGATIVEComment: Testing | | EXTERNAL | | | Urine | performed at [facility], [address] | | LAB | | | | [address], | | | | | | [place] [address] | | | | + + + + + + | Urobilinoge | 0.2Comment: Testing | mg/dL | EXTERNAL | | | n, Urine | performed at [facility], [address] | | LAB | | | | [address], | | | | | | [place] [address] | | | | + + + + + + | Protein, | 100 (A)Comment: Testing | mg/dL | EXTERNAL | | | Urine | performed at [facility], [address] | | LAB | | | | [place] [place], | | | | | | [place] [address] | | | | + + + + + + | pH, Urine | 6.5Comment: Testing | 5.0 - 8.0 | EXTERNAL | | | | performed at [facility], [address] | | LAB | | | | [address], | | | | | | [place] [address] | | | | + + + + + + | Blood, | MODERATE (A)Comment: | | EXTERNAL | | | Urine | Testing performed at | | LAB | | | | [facility], [address] | | | | | | [place] | | | | | | [address] | | | | + + + + + + | Ketones | NEGATIVEComment: Testing | mg/dL | EXTERNAL | | | | performed at [facility], [address] | | LAB | | | | [address], | | | | | | [place] [address] | | | | + + + + + + | Bilirubin, | NEGATIVEComment: Testing | | EXTERNAL | | | Urine | performed at [facility], [address] | | LAB | | | | [address], | | | | | | [place] [address] | | | | + + + + + + | Glucose, | NEGATIVEComment: Testing | mg/dL | EXTERNAL | | | Urine | performed at [facility], [address] | | LAB | | | | [address], | | | | | | [place] [address] | | | | + + + [...] | | | | | [place] [address] | | | | + + + + + + | RBC, UA | 1-5Comment: Testing | 0 - 5 /hpf | EXTERNAL | | | | performed at [facility], [address] | | LAB | | | | [address], | | | | | | [place] [address] | | | | + + + + + + | Epithelial | 0-2Comment: Testing | /lpf | EXTERNAL | | | Cells | performed at [facility], [address] | | LAB | | | | [address], | | | | | | [place] [address] | | | | + + + + + + | Bacteria, | TRACE (A)Comment: | | EXTERNAL | | | UA | Testing performed at | | LAB | | | | [facility], [address] | | | | | | [place] | | | | | | [address] | | | | + + + + + + | Urinalysis | CULTURE TO | | EXTERNAL | | | Comments | FOLLOWComment: Testing | | LAB | | | | performed at [facility], [address] | | | | | | [address] Santamaria, | | | | | | [place] [address] | | | | + + + [...] Real | | | | | | [address] | | | | + + + [...] LAB | | C.diffAbnormal Testing performed at [facility];[address] [place] [address] | | | [phone] NAP1 BI 027 NAP1 BI | | | PRESUMPTIVE NEGATIVE Detection of 027 NAP1 BI strains of C. difficile | | | is presumptive and for epidemiological purposes and not intended to | | | guide or monitor treatment for C. difficile infections. Testing | | | performed at [facility];[address] [place] [address];[place] [address] | | + + + + +---------+ [...] | LAB | | | | Tiera Santamaria;[place], [place] | | | | | | [address] | | | | + + + [...] | | | | | [facility];[place] [address] | | | | + + + [...] | LAB | | | | Tiera Santamaria;[place], [place] | | | | | | [address] | | | | + + + [...] CITY;[address] | | | | | | [facility];[place], [place] | | | | | | [address] | | | | + + + [...] | | | | | Aly;[place] [address] | | | | + + + + + + | RED CELL | 3.66 (L)Comment: Testing | 3.70 - 5.10 | EXTERNAL | | | COUNT | performed at [facility];[address] | M/uL | LAB | | | | [address];[place] | | | | | | [address] | | | | + + + + + + | Hgb | 12.6Comment: Testing | 11.3 - 15.5 | EXTERNAL | | | | performed at [facility];888 | g/dL | LAB | | | | [address];[place] | | | | | | [address] | | | | + + + + + + | Hematocrit, | 38.9Comment: Testing | 34.0 - 46.0 % | EXTERNAL | | | POC | performed at [facility];[address] | | LAB | | | | [address];[place] | | | | | | [address] | | | | + + + + + + | MCV | 106.3 (H)Comment: | 80.0 - 100.0 fl | EXTERNAL | | | | Testing performed at | | LAB | | | | [facility];[address];[place] [address] | | | | + + + + + + | MCH | 34.3 (H)Comment: Testing | 27.0 - 34.0 pg | EXTERNAL | | | | performed at [facility];[address] | | LAB | | | | [address];[place] | | | | | | [address] | | | | + + + + + + | MCHC | 32.3Comment: Testing | 32.0 - 35.5 | EXTERNAL | | | | performed at [facility];888 | g/dL | LAB | | | | [address];[place] | | | | | | [address] | | | | + + + + + + | RDW-CV | 54.7 (H)Comment: Testing | 37 - 53 fl | EXTERNAL | | | | performed at [facility];[address] | | LAB | | | | [address];[place] | | | | | | [address] | | | | + + + + + + | Platelet | 167Comment: Testing | 150 - 400 K/uL | EXTERNAL | | | Count | performed at [facility];[address] | | LAB | | | Plasma | [address];[place] | | | | | | [address] | | | | + + + + + + | MPV | 10.6Comment: Testing | fl | EXTERNAL | | | | performed at [facility];[address] | | LAB | | | | [address];[place] | | | | | | [address] | | | | + + + + + + | Differentia | MANUALComment: Testing | | EXTERNAL | | | l Type | performed at [facility];[address] | | LAB | | | | [address];[place] | | | | | | [address] | | | | + + + + + + | Segmented | 54Comment: Testing | % | EXTERNAL | | | Neutrophils | performed at [facility];[address] | | LAB | | | Manual | [address];[place] | | | | | | [address] | | | | + + + + + + | % Bands | 18Comment: Testing | % | EXTERNAL | | | | performed at [facility];[address] | | LAB | | | | [address];[place] | | | | | | [address] | | | | + + + + + + | Lymphocytes | 16Comment: Testing | % | EXTERNAL | | | Manual | performed at [facility];[address] | | LAB | | | | [address];[place] | | | | | | [address] | | | | + + + + + + | Monocytes | 12Comment: Testing | % | EXTERNAL | | | Manual | performed at [facility];[address] | | LAB | | | | [address];[place] | | | | | | [address] | | | | + + + + + + | Absolute | 10.69 (H)Comment: | 1.90 - 7.40 | EXTERNAL | | | Neutrophils | Testing performed at | K/uL | LAB | | | | [facility];[address];[place] [address] | | | | + + + + + + | Bands | 3.56 (H)Comment: Testing | 0.00 - 0.20 | EXTERNAL | | | Manual | performed at [facility];888 | K/uL | LAB | | | | [address];[place] | | | | | | [address] | | | | + + + + + + | Absolute | 3.16Comment: Testing | 1.00 - 3.90 | EXTERNAL | | | Lymphocytes | performed at [facility];888 | K/uL | LAB | | | | [address];[place] | | | | | | [address] | | | | + + + + + + | Absolute | 2.37 (H)Comment: Testing | 0.00 - 0.80 | EXTERNAL | | | Monocytes | performed at [facility];888 | K/uL | LAB | | | | [address];[place] | | | | | | [address] | | | | + + + + + + | Platelet | ADEQUATEComment: Testing | | EXTERNAL | | | Estimate | performed at [facility];[address] | | LAB | | | | [address];[place] | | | | | | [address] | | | | + + + + + + | RBC | NORMAL PLT MORPHComment: | | EXTERNAL | | | Morphology | 1+ANISOTesting | | LAB | | | | performed at [facility];[address] | | | | | | [address];[place] | | | | | | [address] | | | | | | | [...] | LAB | | | | Tiera Santamaria;[place], [place] | | | | | | [address] | | | | + + + [...] | LAB | | | | Tiera Santamaria;[place], [place] | | | | | | [address] | | | | + + + [...] | | | | | [address];[place] [address] | | | | + + + [...] | LAB | | | | Tiera Santamaria;[place], [place] | | | | | | [address] | | | | + + + [...] [place] | | | | | | [address] | | | | + + + [...] [place] | | | | | | [address] | | | | + + + + + + | K | 3.4 (L)Comment: Testing | 3.5 - 4.9 | EXTERNAL | | | | performed at [facility];888 | mmol/L | LAB | | | | [address];[place] | | | | | | [address] | | | | + + + + + + | Cl | 101Comment: Testing | 99 - 109 mmol/L | EXTERNAL | | | | performed at [facility];[address] | | LAB | | | | [address];[place] | | | | | | [address] | | | | + + + + + + | CO2 | 27Comment: Testing | 23 - 32 mmol/L | EXTERNAL | | | | performed at [facility];[address] | | LAB | | | | [address];[place] | | | | | | [address] | | | | + + + + + + | Anion Gap | 12Comment: Testing | 5 - 20 mmol/L | EXTERNAL | | | | performed at [facility];[address] | | LAB | | | | [address];[place] | | | | | | [address] | | | | + + + + + + | Glucose, | 106 (H)Comment: Testing | 65 - 99 mg/dL | EXTERNAL | | | Fasting | performed at [facility];[address] | | LAB | | | | [address];[place] | | | | | | [address] | | | | + + + + + + | BUN | 18Comment: Testing | 8 - 25 mg/dL | EXTERNAL | | | | performed at [facility];[address] | | LAB | | | | [address];[place] | | | | | | [address] | | | | + + + + + + | Creatinine | 1.3 (H)Comment: Testing | 0.50 - 1.00 | EXTERNAL | | | | performed at [facility];888 | mg/dL | LAB | | | | [address];[place] | | | | | | [address] | | | | + + + + + + | BUN/Creatin | 14Comment: Testing | | EXTERNAL | | | ine Ratio | performed at [facility];[address] | | LAB | | | | [address];[place] | | | | | | [address] | | | | + + + + + + | Calcium | 7.3 (L)Comment: Testing | 8.5 - 10.5 | EXTERNAL | | | | performed at [facility];888 | mg/dL | LAB | | | | [address];[place] | | | | | | [address] | | | | + + + + + + | Protein, | 7.9Comment: Testing | 6.3 - 8.2 g/dL | EXTERNAL | | | Total | performed at [facility];[address] | | LAB | | | | [address];[place] | | | | | | [address] | | | | + + + + + + | Albumin | 2.5 (L)Comment: Testing | 3.3 - 4.8 g/dL | EXTERNAL | | | | performed at [facility];[address] | | LAB | | | | [address];[place] | | | | | | [address] | | | | + + + + + + | Globulin | 5.4 (H)Comment: Testing | 1.3 - 4.9 g/dL | EXTERNAL | | | | performed at [facility];[address] | | LAB | | | | [address];[place] | | | | | | [address] | | | | + + + + + + | A/G Ratio | 0.5 (L)Comment: Testing | 1.0 - 2.4 | EXTERNAL | | | | performed at [facility];[address] | | LAB | | | | [address];[place] | | | | | | [address] | | | | + + + + + + | Bilirubin | 0.6Comment: Testing | 0.1 - 1.5 mg/dL | EXTERNAL | | | Total | performed at [facility];[address] | | LAB | | | | [address];[place] | | | | | | [address] | | | | + + + + + + | ALP, | 188 (H)Comment: Testing | 35 - 115 U/L | EXTERNAL | | | External | performed at [facility];[address] | | LAB | | | | [address];[place] | | | | | | [address] | | | | + + + + + + | AST | 51 (H)Comment: Testing | 10 - 45 U/L | EXTERNAL | | | | performed at [facility];[address] | | LAB | | | | [address];[place] | | | | | | [address] | | | | + + + + + + | ALT | 30Comment: Testing | 10 - 65 U/L | EXTERNAL | | | | performed at [facility];[address] | | LAB | | | | [address];[place] | | | | | | [address] | | | | + + + [...] | | | | | Blvd;[place] [address] | | | | + + + [...] Conversion - 01/05/2019 4:32 AM PDT [facility] [id number] yearsXR | | CHEST 1 VIEW01/28/2015 2:40 [...]
--- OUTSIDE RECORDS SUMMARY | ~2019-05-09 | XMS | Clinical Summary ---
Demographics + + + | Address | [address] | | | [place] [address] | + + + | Home Phone | | + + + | Preferred Language | Unknown | + + + | Marital Status | Unknown | + + + | Presybeterian Affiliation | Unknown | + + + | Race | Unknown | + + + | Ethnic Group | Unknown | + + + Author + + + | Author | [facility] | + + + | Organization | [facility] | + + + | Address | Unknown | + + + | Phone | Unavailable | + + + Care Team Providers + +------+ + | Care Manager Transit Name | Role | Phone | + +------+ + PCP | Unavailable | + +------+ + Source Comments JAYDEN is fully live on both EpicCare Ambulatory and EpicCare InPatient.[facility] Allergies Not on File Medications Not on [...]
--- OUTSIDE RECORDS SUMMARY | ~2019-05-09 | XMS | Encounter Summary ---
Demographics + + + | Address | [address] | | | [place] [address] | + + + | Home Phone [...] Team Providers + +------+ + | Care Signs And Displays Salesperson Name | Role | Phone | + [...] | | | CONSULT | [place] | [place] [address] | | | | | | [place], [place] | Phone: | | | | | | [address] | [phone] | | | | | | Phone: | Fax: | | | | | | [phone] | [phone] | | | | | | Fax: | | | | | | | [phone] | | +--------+--------+ + + + + [...] | Dx); Kyphosis | | | | [place], | [place], [place] | deformity of spine | | | | [place] [address] | [address] | | | | | [phone] | | | +--------+---------+ + + + [...] oxygen at 2 L per minute at [facility] while she slept. Over last 3 or [...] A copy of the patient's echocardiogram from [facility] will be reviewed. CC: Yovani Santana documented in this encounter Plan of Treatment Not on filedocumented as of this encounter Results PFT PULMONARY FUNCTION TESTING ORDERS Full PFT ([place] w/BD, lung volumes, diffusion)?: Yes; Rest and [...] Melendez MD 03/27/2014 13:24 | | | [facility] | | + + + + [...] 03/26/14Electronically signed by: Gary Melendez MD 03/27/2014 13:24[facility] | | [facility] | | | |No prior pulmonary function tests available for comparison. | | | |Test performed: 03/26/14 | |Electronically signed by: Gary Melendez MD 03/27/2014 13:24 | |[facility] | + + documented in this encounter Visit Diagnoses + + | Diagnosis | + + | Hypoxemia - Primary | + + | Kyphosis deformity of spine Kyphosis (acquired) (postural) | + + documented in this encounter
--- OUTSIDE RECORDS SUMMARY | ~2019-05-09 | XMS | Encounter Summary ---
Demographics + + + | Address | [address] | | | [place] [address] | + + + | Home Phone | | + + + | Preferred Language | Unknown | + + + | Marital Status | Single | + + + | Pentecostal Affiliation | [id number] | + + + [...] Team Providers + +------+ + | Care Crutching Contractor Name | Role | Phone | + [...] POPLAR | Dx) | | | | [address], | [place], [place] | | | | | [place] [address] | [address] | | | | | [phone] | | | +--------+ + + + [...]
--- OUTSIDE RECORDS SUMMARY | ~2019-05-09 | XMS | Encounter Summary ---
Demographics + + + | Address | [address] | | | [place] [address] | + + + | Home Phone [...] + + + | Author | [facility] | | | and [place] | + + + | Organization | [facility] | | | [...] Team Providers + +------+ + | Care Pourer Crane Ladle Name | Role | Phone | + +------+ + | Yovani Santana MD | PCP | | + +------+ + Encounter Details +--------+ + + + + | Date | Type | Department | Care Team | Description | +--------+ + + + + | 01/14/ | Hospital | [facility] | Jennifer Hartman MD | Near syncope; | | 2015 - | Encounter | [facility] | [address] | Elevated troponin; | | | | CARE FLOOR [address] | [place] [address] | Non-STEMI (non-ST | | 01/19/ | | [address] | [phone] | elevated myocardial | | 2015 | | [place], [place] | | infarction) ([facility]); | | | | [address] | | CKD (chronic kidney | | | | [phone] | | disease), | | | | | | unspecified stage; | | | | | | Leukocytosis; ZULAY | | | | | | (acute kidney | | | | | | injury) ([facility]); Liver | | | | | | replaced by | | | | | | transplant ([facility]) | +--------+ + + + + Social [...] Date of Service: 01/19/15 0753 Status: Signed Gaming Surveillance Observer: Emma Hardy MD (Physician) Related Notes: Original Note by Emma Hardy MD (Physician) filed at 01/19/15 0800 [facility] Service: Hospitalist Physician Discharge Summary Patient [...] history of chronic pain, on chronic methadone, 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 The patient was taken off methadone about 3 weeks prior to admission. Pre vious creatinine was 1.38 and the patient was presented at [facility] in [place] , was found to have elevated troponin of 0.55 and noted to have creatinine of 2.4 and leukoc ytosis and was transferred for qdn-QE-uydapldmj AR. HOSPITAL COURSE The patient was admitted with qgz-TM-pkixeysmx AR. Cardiology consult was obtained. She was started [...] lipid-lowerin g therapy. The patient also has wqutf-fz-wxemuar kidney disease, stage III. Acute renal fail [...] to have severe protein calorie malnutrition and backer up was consulted. Her blood pressures remain stable. [...] up: Ki De Jesus DO [address] [facility] [address] [place] [address] Schedule an appointment as soon as possible for a visit in 4 days Juan Ramey MD [address] [facility] [address] [facility] [address] Schedule an appointment as soon as possible for a visit in 1 week Follow up biopsy results Juju Riggins MD [address] [place] [address] Schedule an appointment as soon as [...] are the prescriptions that you need to orange picker. You may get the following medications [...] summary. This entry has been created using VHSquared Speech Recognition software and [employer]. The entry has been reviewed and there [...] Date of Service: 01/19/15 1300 Status: Signed Gaming Surveillance Observer: Shaista Lin RN (Registered Nurse) Pt discharged via wheel chair on 2 L of oxygen. To [facility] in [place]. Pt alert and o rientedX4. onver alessandro Transaction, Provider Unknown - 01/19/2015 8:20 AM PDT Case Management by PHUONG Roman at 01/19/15819 Author: PHUONG Roman Service: (none) Author Type: Switchboard Troubleshooter Filed: 01/19/15819 Date of Service: 01/19/15819 Status: Signed Gaming Surveillance Observer: PHUONG Roman (Switchboard Troubleshooter) Disposition: [facility] Transportation: facility van [...] 0625 Date of Service: 01/19/15412 Status: Signed Gaming Surveillance Observer: Yady Singh RN (Registered Nurse) Patient resting quietly all night. Medicated once for all over general pain. No further com plaints. VSS. onver alessandro Transaction, Provider Unknown - 01/18/2015 3:21 PM PDT Case Management by PHUONG Roman at 01/18/15 1521 Author: PHUONG Roman Service: (none) Author Type: Switchboard Troubleshooter Filed: 01/18/15 1521 Date of Service: 01/18/15 1521 Status: Signed Gaming Surveillance Observer: PHUONG Roman (Switchboard Troubleshooter) spoke w/ Will at [place] who reports they can accept and transport pt tomorrow AM. PHUONG Roman osangela Kirk MD - 01/18/2015 3:10 PM PDT Progress Notes by Rosangela Steinberg MD at 01/18/15 1510 Author: Rosangela Steinberg MD Service: Infectious Disease Author Type: Physician Filed: 01/18/15 1280 Date of Service: 01/18/15 1510 Status: Signed Gaming Surveillance Observer: Rosangela Steinberg MD (Physician) [facility] Service: Infectious Disease Progress Note Hospital [...] and diarrhea. Had initially presented to [facility] in [place] with similar complaints. Was foun d to have an elevated troponin. She was mainly admitted as a non-STEMI. Found to have a leuk ocytosis. Since patient is immunocompromised, she was started empirically on IV ceftriaxone. Chest x-ray showed no infiltrate. Patient denies any recent fevers or chills. She went to [facility] mainly becau se of syncope. Prior [...] extraluminal fluid collection abdomen pelvis without contrast [[id number]] Impression 1. Hypoinflated chest, but no evident infiltrate chest 1 view [[id number]] Impression 1. Indication for study and thus [...] 1445 Date of Service: 01/18/15748 Status: Signed Gaming Surveillance Observer: Emma Hardy MD (Physician) [facility] Service: Hospitalist Progress Note Hospital Day: [...] (HCC) ASSESSMENT & PLAN 1. Non-ST elevation AR. Possible demand ischemia. Will schedule for nuclear [...] schrader 8. Deconditioning Continue physical therapy and halfway facility placement versus home PT 9. Chronic [...] AM This entry has been created using VHSquared Speech Recognition software and [employer]. The entry has been reviewed and there may still exist sound alike word errors. onversion Trans action, Provider Unknown - 01/18/2015 5:16 AM PDT Nurse Progress Note by Yady Singh RN at 01/18/15515 Author: Yady Singh RN Service: (none) Author Type: Registered Nurse Filed: 01/18/152104 Date of Service: 01/18/15515 Status: Signed Gaming Surveillance Observer: Yady Singh RN (Registered Nurse) Pt taken [...] Date of Service: 01/17/15 162 Status: Signed Gaming Surveillance Observer: Jose Maria Espinal MD (Physician) Related Notes: Original Note by Jose Maria Espinal MD (Physician) filed at 01/17/152012 [facility] Service: Hospitalist Progress Note Pt: Cole Ernst AGE/SEX: 69 y.o. female : 1945 ROOM: [address] [place] [address] History of Present Illness: " The patient [...] who called EMS. Patient was taken to [facility] in [place]. Susie ent was noted to have a [...] borderline blood pressure. While at [facility] with systolic in the low [...] CT done several days ago while in [place]. She also stat es that her vomiting and diarrhea have significantly improved. She denies any fevers, hemat emesis, melena, bright red blood per rectum, hematuria, dysuria, she denies any leg pain or swelling. No palpitations. She states she does have a history of "kidney disease" and was told that it was secondary to cyclosporine. However, she is not seen [facility] her liver transplant.".....per admitting MD/Dr. Hartman. [...] collected as n oted. I urged the medical staff manager to introduce a hat so that sample [...] contrast. Prior study for comparison: None FINDINGS: Cnc Mill And Lathe Operator 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 deg enerative changes [...] LA/Ao: 1.57 D-E Excursion: 2.11 cm E-F Trigg: 0.09 m/s EPSS: 0.48 cm HR: 77.41 [...] TV A Billy: 0.66 m/s TV Dec Trigg: 4.36 m/s2 TV Dec Time: 184.41 ms TV E Billy: 0.80 m/s TV E/A Rat io: 1.21 Pr Intern: NEDRA Authenticated by: Gil Coronel MD Report [...] nutritional supplements as recommend ed by nutrition service/backer up. Jose Maria Espinal MD 01/17/2015 4:29 PM onversion Transa ction, Provider Unknown - 01/17/2015 3:15 PM PDT Case Management by PHUONG Sandhu at 01/17/15 1515 Author: PHUONG Sandhu Service: (none) Author Type: Certified Diabetes Educator Filed: 01/17/15 1518 Date of Service: 01/17/155 Status: Signed Gaming Surveillance Observer: PHUONG Sandhu (Certified Diabetes Educator) 01/17/15 1500 Discharge Planning Evaluation Admitting Diagnosis Near syncope, elevated tropinin, non-stemi, CKD Anticipated Disposition Facility Type custodial facility Medicare Important Message ([facility]EDITH) Given Shelter [facility] Other (comment) ([facility]) WAVE GUIDE ASSEMBLER met with Pt for discharge planning, on board with going to [facility] when medically ready. WAVE GUIDE ASSEMBLER p/c to [facility] - will accept Pt when medically ready. [facility] (73 miles) [address] [place] [address], [place] Ceramic Engineer: Will DCP: [facility] Transportation: [facility] Van - Ceramic Engineer: Will Medicare important message signed and copy in chart LUIS FOUNTAIN, Switchboard Troubleshooter [phone] cell Rosangela Zavala MD - 01/17/2015 1:11 PM PDT Progress Notes by Rosangela Steinberg MD at 01/17/15 1311 Author: Rosangela Steinberg MD Service: Infectious Disease Author Type: Physician Filed: 01/17/15 8688 Date of Service: 01/17/15 1311 Status: Signed Gaming Surveillance Observer: Rosangela Steinberg MD (Physician) [facility] Service: Infectious Disease Progress Note Hospital [...] and diarrhea. Had initially presented to [facility] in [place] with similar complaints. Was foun d to have an elevated troponin. She was mainly admitted as a non-STEMI. Found to have a leuk ocytosis. Since patient is immunocompromised, she was started empirically on IV ceftriaxone. Chest x-ray showed no infiltrate. Patient denies any recent fevers or chills. She went to [facility] mainly becau se of syncope. Prior [...] extraluminal fluid collection abdomen pelvis without contrast [[id number]] Impression 1. Hypoinflated chest, but no evident infiltrate chest 1 view [[id number]] Impression 1. Indication for study and thus [...] 01/16/152137 Date of Service: 01/16/152127 Status: Signed Gaming Surveillance Observer: Juju Riggins MD (Physician) [facility] Service: Cardiology Progress Note Hospital Day: [...] Author: PHUONG Sandhu Service: (none) Author Type: Certified Diabetes Educator Filed: 01/16/156 Date of Service: 01/16/151642 Status: Signed Gaming Surveillance Observer: PHUONG Sandhu (Certified Diabetes Educator) 01/16/15 1600 Discharge Planning Evaluation Admitting Diagnosis Near syncope, elevated tropinin, non-stemi, CKD Anticipated Disposition Facility Type custodial facility Shelter Facility Other (comment) ([facility]) PHUONG received p/c from Will, admissions at [facility], states they are willi ng to accept Pt to their Shelter Facility, states their house physician will not pre scribe Methadone. Will states she will start authorization process with [employer] who is Managing the Medicare benefits. Will states the first 20 days are covered at 100% then day 21 will be $100.00 a day. DCP: [facility] or Home LUIS FOUNTAIN,Switchboard Troubleshooter [phone] cell Jose Maria Grimes MD - 01/16/2015 11:29 AM PDTFormatting of this note might be different from th e original. Progress Notes by Jose Maria Espinal MD at 01/16/15 1129 Author: Jose Maria Espinal MD Service: Hospitalist Author Type: Physician Filed: 01/17/15 1149 Date of Service: 01/16/15 1129 Status: Signed Gaming Surveillance Observer: Jose Maria Espinal MD (Physician) Related Notes: Original Note by Jose Maria Espinal MD (Physician) filed at 01/16/15 1137 [facility] Service: Hospitalist Progress Note Pt: Cole Ernst AGE/SEX: 69 y.o. female : 1945 ROOM: [address] [place] [address] History of Present Illness: " The patient [...] who called EMS. Patient was taken to [facility] in [place]. Susie ent was noted to have a [...] rate of 75 and antrolateral T-wave inver alesasndro. Patient was transferred here for higher level of care. Patient had borderline blood pressure. While at [facility] with systolic in the low [...] CT done several days ago while in [place]. She also stat es that her vomiting and diarrhea have significantly improved. She denies any fevers, hemat emesis, melena, bright red blood per rectum, hematuria, dysuria, she denies any leg pain or swelling. No palpitations. She states she does have a history of "kidney disease" and was told that it was secondary to cyclosporine. However, she is not seen [facility] her liver transplant.".....per admitting MD/Dr. Hartman. [...] collected as n oted. I urged the medical staff manager to introduce a hat so that sample [...] contrast. Prior study for comparison: None FINDINGS: Cnc Mill And Lathe Operator 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 deg enerative changes [...] LA/Ao: 1.57 D-E Excursion: 2.11 cm E-F Trigg: 0.09 m/s EPSS: 0.48 cm HR: 77.41 [...] TV A Billy: 0.66 m/s TV Dec Trigg: 4.36 m/s2 TV Dec Time: 184.41 ms TV E Billy: 0.80 m/s TV E/A Rat io: 1.21 Pr Intern: NEDRA Authenticated by: Gil Coronel MD Report [...] Date of Service: 01/16/15 1102 Status: Signed Gaming Surveillance Observer: Natalio Benito PT (Physical Therapist) 01/16/15 1102 PT Last Visit PT Received On 01/16/15 Reason for Treatment Deconditioning;Other (comment) (NSTEMI; Syncope) Requires PT Follow Up Awaiting tx order Follow up PT Only? No PT Eval/Reassessment Date 01/16/15 Assistance Required 1 person Speeder Machine Operator Needed No Home Environment Type of Home Apartment ground level Home Exterior Layout Entry steps none Home Interior Layout Lives on main level with bedroom/bathroom Bathroom Shower/Tub Tub/shower unit Bathroom Toilet Standard Bathroom Equipment Shower stool;Grab bars in shower/bath;Grab bars outside of shower/bath Bathroom Accessibility Other (Comment) (Small bathroom) Home Equipment Walker 4 wheeled;Cane single point Prior Function Level of [place] Modified independent with functional mobility;Modified independent wi [...] (sitting in recliner w/ call light and BACK HAND present) Restraints Initially in Place No Precautions [...] Eval/Reassessment Date 01/16/15 Assistance Required 1 person Speeder Machine Operator Needed No Precautions Other Precautions [...] support. Patient in the recli ner w/ BACK HAND present at end of session, no new [...] (sitting in recliner w/ call light and BACK HAND present) Restraints Initially in Place No Plan [...] Date of Service: 01/16/15 1045 Status: Signed Gaming Surveillance Observer: Nupur Tadeo MD (Physician) [facility] Service: Infectious Disease Progress Note Hospital [...] initially presented to [facility] in [place] with similar complaints. Was found to have an elevated troponin . She was mainly admitted as a non-STEMI. Found to have a leukocytosis. Since patient is imm unocompromised, she was started empirically on IV ceftriaxone. Chest x-ray showed no infiltrate. Patient denies any recent fevers or chills. She went to [facility] mainly becau se of syncope. Prior [...] Author: PHUONG Sandhu Service: (none) Author Type: Certified Diabetes Educator Filed: 01/16/15 1042 Date of Service: 01/16/15 1030 Status: Signed Gaming Surveillance Observer: PHUONG Sandhu (Certified Diabetes Educator) 01/16/15 1000 Discharge Planning Evaluation Admitting Diagnosis Near syncope, elevated tropinin, non-stemi, CKD Anticipated Disposition Facility Type custodial facility WAVE GUIDE ASSEMBLER met with Pt and discussed discharge planning, states she has concerns returning home at this time, as Pt resides alone. WAVE GUIDE ASSEMBLER discussed rehab options, SNF vs Home Health vs Outpatient PT. Pt states her sister (Annie Tipton [phone] cell) assists with IADLs as Pt does [...] interested in [facility] [place], due to close proximity to her home. WAVE GUIDE ASSEMBLER faxe d SNF referral. Pt is a [...] placement at [facility] [place] LUIS FOUNTAIN, Switchboard Troubleshooter [phone] cell Luisito Mejía - 01/16/2015 9:12 AM PDTFormatting of this note might be different from the or iginal. Progress Notes by Luisito Thomas MD at 01/16/15911 Author: Luisito Thomas MD Service: Nephrology Author Type: Physician Filed: 01/20/15 1907 Date of Service: 01/16/15911 Status: Signed Gaming Surveillance Observer: Luisito Thomas MD (Physician) [facility] Service: NEPHROLOGY PROGRESS Note Cole Ernst 69 y.o. [phone] 4445/[id number] female [facility] Day: LOS: 2 days The patient is a 69 y.o. 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 on ceftriaxone CASE DISCUSSED IN [...] 01/16/15508 Date of Service: 01/16/15505 Status: Signed Gaming Surveillance Observer: Michelle Paulson RN (Registered Nurse) Patient resting quietly t/o shift. High CIWA this shift =4. Patient c/o generalized pain, treated with PRN [place] per orders. Patient observed to be sle eping, following PRN medication and repositioning. Patient continues to be NSR-ST on tele. Vitals stable. Will continue to monitor patient. ose Maria Black MD - 01/15/2015 3:19 PM PDTFormatting of this note might be different from armando tellez original. Progress Notes by Jose Maria Espinal MD at 01/15/15 0403 Author: Jose Maria Espinal MD Service: Hospitalist Author Type: Physician Filed: 01/16/15 0925 Date of Service: 01/15/151518 Status: Signed Gaming Surveillance Observer: Jose Maria Espinal MD (Physician) Related Notes: Original Note by Jose Maria Espinal MD (Physician) filed at 01/15/151939 [facility] Service: Hospitalist Progress Note Pt: Cole [...] who called EMS. Patient was taken to [facility] in [place]. Susie ent was noted to have a [...] borderline blood pressure. While at [facility] with systolic in the low [...] CT done several days ago while in [place]. She also stat es that her vomiting and diarrhea have significantly improved. She denies any fevers, hemat emesis, melena, bright red blood per rectum, hematuria, dysuria, she denies any leg pain or swelling. No palpitations. She states she does have a history of "kidney disease" and was told that it was secondary to cyclosporine. However, she is not seen [facility] her liver transplant.".....per admitting MD/Dr. Hartman. [...] contrast. Prior study for comparison: None FINDINGS: Cnc Mill And Lathe Operator 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 deg enerative changes [...] LA/Ao: 1.57 D-E Excursion: 2.11 cm E-F Trigg: 0.09 m/s EPSS: 0.48 cm HR: 77.41 [...] TV A Billy: 0.66 m/s TV Dec Trigg: 4.36 m/s2 TV Dec Time: 184.41 ms TV E Billy: 0.80 m/s TV E/A Rat io: 1.21 Pr Intern: NEDRA Authenticated by: Gil Coronel MD Report [...] Elevated troponins, question underlying non ST elevation AR. Continue current medical th erapy. I appreciate [...] (none) Author Type: Registered Dietitian Filed: 01/15/15 1436 Date of Service: 01/15/151429 Status: Signed Gaming Surveillance Observer: Ronda Michaels RD (Registered Dietitian) 01/15/15 2167 Subjective Timepoint Admit Pt c/o In to [...] Estimated Energy Needs Total Energy Estimated Needs 3088-5346 kcal Method for Estimating Needs 25-30 kcal/kg [...] Date of Service: 01/15/15 1043 Status: Signed Gaming Surveillance Observer: Luisito Thomas MD (Physician) [facility] Service: NEPHROLOGY PROGRESS Note Cole Ernst 69 y.o. [id number] 4445/4445-1 female [facility] Day: LOS: 1 day The patient is a 69 y.o. 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 See ED Record for Physician Inter pretation. Confirmed by MUSE READ ONLY, -COMPUTER ([id number]), publishing editor Shala Gramajo ([id number]) on 01/14/2015 11:17 [...] K 4.4 11/15/2014 S/P LIVER TXP AT [facility] IN 1991 IMMUNOSUPPRESSION ON CYCLOSPORIN 75 MG BID ON AZA 50 MG DAILY HYPOPHOSPHATEMIA REPLACE TO KEEP P GREATER THAN 2.5 REPEAT P LEVEL IN AM Lab Results Component Value Date PHOS 1.5* 01/15/2015 PHOS 1.4* 01/14/2015 Abdominal pain / LEUCOCYTOSIS PER HOSPITALIST CT SCAN WITH ORAL CONTRAST DONE Possible UTI pyuria on her urinalysis from [facility] on ceftriaxone CASE DISCUSSED IN [...] 01/14/152316 Date of Service: 01/14/152315 Status: Signed Gaming Surveillance Observer: Giovanna Bejarano RN (Registered Nurse) Called Dr. [...] 01/14/152226 Date of Service: 01/14/152226 Status: Signed Gaming Surveillance Observer: Jazz Rahman RPH (Pharmacist) Clinical Pharmacy Note - Renal Dose Adjustment Cole Ernst 69 y.o. female Ht Readings from Last 1 Encounters: 01/14/15 1.6 m (5' 3") Wt Readings from Last 1 Encounters: 01/14/15 89.6 kg (197 lb 8.5 oz) CREATININE Date Value Ref Range Status 01/14/2015 2.4* 0.50 - 1.00 mg/dL Final Comment: Testing performed at [facility];[address] [place] [address];[place] [address] CREATININE: 2.4 mg/dL ABNORMAL (01/14/15 1548) Estimated [...] PHUONG Crump LICSW Service: (none) Author Type: Switchboard Troubleshooter Filed: 01/14/151734 Date of Service: 01/14/151733 Status: Signed Gaming Surveillance Observer: PHUONG Crump LICSW (Switchboard Troubleshooter) 01/14/151727 Discharge Planning Evaluation Admitting Diagnosis Near syncope, elevated tropinin, non-stemi, CKD Readmission No Living Arrangements Alone Support Systems Family members;Friends/neighbors Type of Residence Private residence House type Apartment Bathrooms on 1st Floor 1-Full Independent with ADL's Yes Independent with Mobility No-comment Home Care Services No Mental Status Oriented Power of Crocheter Hand No;Other (comment) Resources Transportation issues No Prescription Plan Yes Name of Pharmacy [facility] in [place], [place] Previous home health equipment Yes Anticipated Disposition Facility Type Home Met with patient and discussed discharge planning, Pt is a 69 y.o., female who reports skyleri mack alone. Patient reports her sister, Annie Tipton, will transport her home a t discharge. Patient's PCP is: KI DE JESUS (General) Patient's insurance:b [employer] & Medicare Coverage concerns: Medication coverage/concerns: Doreen Bedside Delivery: [facility] resources utilized / needed: TBD Assistance in [...] preparation was | | | performed by [employer], [facility], [facility] | | | [place] [address] (Spring Upholsterer: Martin | | Tariq Galvan M.D.; NINA#: [id number]). Diagnostician: Martin Galvan | | | Pathologist [...] | | | | performed at [facility], [address] | | LAB | | | | [address], | | | | | | [place] [address] | | | | + + + [...] | | | | performed at [facility], [address] | | LAB | | | | [address], | | | | | | [place] [address] | | | | + + + [...] | | | | | [place] [address] | | | | + + + + + + | K | 3.4 (L)Comment: Testing | 3.5 - 4.9 | EXTERNAL | | | | performed at [facility], [address] | mmol/L | LAB | | | | [address], | | | | | | [place] [address] | | | | + + + + + + | Cl | 101Comment: Testing | 99 - 109 mmol/L | EXTERNAL | | | | performed at [facility], [address] | | LAB | | | | [address], | | | | | | [place] [address] | | | | + + + + + + | CO2 | 28Comment: Testing | 23 - 32 mmol/L | EXTERNAL | | | | performed at [facility], [address] | | LAB | | | | [address], | | | | | | [place] [address] | | | | + + + + + + | Anion Gap | 10Comment: Testing | 5 - 20 mmol/L | EXTERNAL | | | | performed at [facility], [address] | | LAB | | | | [address], | | | | | | [place] [address] | | | | + + + + + + | Glucose, | 107 (H)Comment: Testing | 65 - 99 mg/dL | EXTERNAL | | | Fasting | performed at [facility], [address] | | LAB | | | | [address], | | | | | | [place] [address] | | | | + + + + + + | BUN | 8Comment: Testing | 8 - 25 mg/dL | EXTERNAL | | | | performed at [facility], [address] | | LAB | | | | [address], | | | | | | [place] [address] | | | | + + + + + + | Creatinine | 0.96Comment: Testing | 0.50 - 1.00 | EXTERNAL | | | | performed at [facility], [address] | mg/dL | LAB | | | | [address], | | | | | | [place] [address] | | | | + + + + + + | BUN/Creatin | 8Comment: Testing | | EXTERNAL | | | ine Ratio | performed at [facility], [address] | | LAB | | | | [address], | | | | | | [place] [address] | | | | + + + + + + | Calcium | 8.6Comment: Testing | 8.5 - 10.5 | EXTERNAL | | | | performed at [facility], [address] | mg/dL | LAB | | | | [address], | | | | | | [place] [address] | | | | + + + [...] | | | | | at [facility], [address] | | | | | | [address], | | | | | | [place] [address] | | | | + + + [...] + + + | COLE ERNST 1945 [place] MYOCARDIAL PERFUSION SPECT - STRESS | | [...] - 01/05/2019 4:32 AM PDT COLE Corcoran SUJATA1945IA MYOCARDIAL | | PERFUSION SPECT - STRESS [...] | | | | performed at [facility], [address] | K/uL | LAB | | | | [address], | | | | | | [place] [address] | | | | + + + + + + | RED CELL | 3.41 (L)Comment: Testing | 3.70 - 5.10 | EXTERNAL | | | COUNT | performed at [facility], [address] | M/uL | LAB | | | | [address], | | | | | | [place] [address] | | | | + + + + + + | Hgb | 11.9Comment: Testing | 11.3 - 15.5 | EXTERNAL | | | | performed at [facility], [address] | g/dL | LAB | | | | [address], | | | | | | [place] [address] | | | | + + + + + + | Hematocrit, | 35.7Comment: Testing | 34.0 - 46.0 % | EXTERNAL | | | POC | performed at [facility], [address] | | LAB | | | | [address], | | | | | | [place] [address] | | | | + + + + + + | MCV | 104.6 (H)Comment: | 80.0 - 100.0 fl | EXTERNAL | | | | Testing performed at | | LAB | | | | [facility], [address] [facility] | | | | | | [place] [...] | | | | | [place] [address] | | | | + + + + + + | MCHC | 33.3Comment: Testing | 32.0 - 35.5 | EXTERNAL | | | | performed at [facility], [address] | g/dL | LAB | | | | [address], | | | | | | [place] [address] | | | | + + + + + + | RDW-CV | 50.8Comment: Testing | 37 - 53 fl | EXTERNAL | | | | performed at [facility], [address] | | LAB | | | | [address], | | | | | | [place] [address] | | | | + + + [...] | | | | | [place] [address] | | | | + + + + + + | MPV | 12.6Comment: Testing | fl | EXTERNAL | | | | performed at [facility], [address] | | LAB | | | | [address], | | | | | | [place] [address] | | | | + + + + + + | Differentia | AUTOMATEDComment: | | EXTERNAL | | | l Type | Testing performed at | | LAB | | | | [facility], [address] | | | | | | [place] | | | | | | [address] | | | | + + + + + + | % Segmented | 40.31Comment: Testing | % | EXTERNAL | | | | performed at [facility], [address] | | LAB | | | Neutrophils | [address], | | | | | | [place] [address] | | | | + + + + + + | % | 39.78Comment: Testing | % | EXTERNAL | | | Lymphocytes | performed at [facility], [address] | | LAB | | | | [address], | | | | | | [place] [address] | | | | + + + + + + | % Monocytes | 12.51Comment: Testing | % | EXTERNAL | | | | performed at [facility], [address] | | LAB | | | | [address], | | | | | | [place] [address] | | | | + + + + + + | % | 6.45Comment: Testing | % | EXTERNAL | | | Eosinophils | performed at [facility], [address] | | LAB | | | | [address], | | | | | | [place] [address] | | | | + + + + + + | % Basophils | 0.95Comment: Testing | % | EXTERNAL | | | | performed at [facility], [address] | | LAB | | | | [address], | | | | | | [place] [address] | | | | + + + + + + | Absolute | 3.26Comment: Testing | 1.90 - 7.40 | EXTERNAL | | | Segmented | performed at [facility], [address] | K/uL | LAB | | | Neutrophils | [address], | | | | | | [place] [address] | | | | + + + + + + | Absolute | 3.21Comment: Testing | 1.00 - 3.90 | EXTERNAL | | | Lymphocytes | performed at [facility], [address] | K/uL | LAB | | | | [address], | | | | | | [place] [address] | | | | + + + + + + | Absolute | 1.01 (H)Comment: Testing | 0.00 - 0.80 | EXTERNAL | | | Monocytes | performed at [facility], [address] | K/uL | LAB | | | | [address], | | | | | | [place] [address] | | | | + + + + + + | Absolute | 0.52 (H)Comment: Testing | 0.00 - 0.50 | EXTERNAL | | | Eosinophils | performed at [facility], [address] | K/uL | LAB | | | | [address], | | | | | | [place] [address] | | | | + + + + + + | Absolute | 0.08Comment: Testing | 0.00 - 0.10 | EXTERNAL | | | Basophils | performed at [facility], [address] | K/uL | LAB | | | | [address], | | | | | | [place] [address] | | | | + + + + + + | RBC | RBC AND PLT MORPHOLOGY | | EXTERNAL | | | Morphology | APPEAR NORMALComment: | | LAB | | | | Testing performed at | | | | | | [facility], [address] [facility] | | | | | | [place] | | | | | | [address] | | | | + + + [...] | | | | performed at [facility], [address] | | LAB | | | | [address], | | | | | | [place] [address] | | | | + + + [...] | | | | | [place] [address] | | | | + + + [...] | | | | | [place] [address] | | | | + + + + + + | K | 3.8Comment: Testing | 3.5 - 4.9 | EXTERNAL | | | | performed at [facility], [address] | mmol/L | LAB | | | | [address], | | | | | | [place] [address] | | | | + + + + + + | Cl | 101Comment: Testing | 99 - 109 mmol/L | EXTERNAL | | | | performed at [facility], [address] | | LAB | | | | [address], | | | | | | [place] [address] | | | | + + + + + + | CO2 | 27Comment: Testing | 23 - 32 mmol/L | EXTERNAL | | | | performed at [facility], [address] | | LAB | | | [address], | | | | | | [place] [address] | | | | + + + + + + | Anion Gap | 12Comment: Testing | 5 - 20 mmol/L | EXTERNAL | | | | performed at [facility], [address] | | LAB | | | | [address], | | | | | | [place] [address] | | | | + + + + + + | Glucose, | 118 (H)Comment: Testing | 65 - 99 mg/dL | EXTERNAL | | | Fasting | performed at [facility], [address] | | LAB | | | | [address], | | | | | | [place] [address] | | | | + + + + + + | BUN | 7 (L)Comment: Testing | 8 - 25 mg/dL | EXTERNAL | | | | performed at [facility], [address] | | LAB | | | | [address], | | | | | | [place] [address] | | | | + + + + + + | Creatinine | 0.79Comment: Testing | 0.50 - 1.00 | EXTERNAL | | | | performed at [facility], [address] | mg/dL | LAB | | | | [address], | | | | | | [place] [address] | | | | + + + + + + | BUN/Creatin | 9Comment: Testing | | EXTERNAL | | | ine Ratio | performed at [facility], [address] | | LAB | | | | [address], | | | | | | [place] [address] | | | | + + + + + + | Calcium | 7.5 (L)Comment: Testing | 8.5 - 10.5 | EXTERNAL | | | | performed at [facility], [address] | mg/dL | LAB | | | | [address], | | | | | | [place] [address] | | | | + + + + + + | Protein, | 7.2Comment: Testing | 6.3 - 8.2 g/dL | EXTERNAL | | | Total | performed at [facility], [address] | | LAB | | | | [address], | | | | | | [place] [address] | | | | + + + + + + | Albumin | 3.1 (L)Comment: Testing | 3.3 - 4.8 g/dL | EXTERNAL | | | | performed at [facility], [address] | | LAB | | | | [address], | | | | | | [place] [address] | | | | + + + + + + | Globulin | 4.1Comment: Testing | 1.3 - 4.9 g/dL | EXTERNAL | | | | performed at [facility], [address] | | LAB | | | | [address], | | | | | | [place] [address] | | | | + + + [...] | | | | | [place] [address] | | | | + + + + + + | ALP, | 76Comment: Testing | 35 - 115 U/L | EXTERNAL | | | External | performed at [facility], [address] | | LAB | | | | [address], | | | | | | [place] [address] | | | | + + + + + + | AST | 43Comment: Testing | 10 - 45 U/L | EXTERNAL | | | | performed at [facility], [address] | | LAB | | | | [address], | | | | | | [place] [address] | | | | + + + + + + | ALT | 25Comment: Testing | 10 - 65 U/L | EXTERNAL | | | | performed at [facility], [address] | | LAB | | | | [address], | | | | | | [place] [address] | | | | + + + [...] | | | | | [place] [address] | | | | + + + [...] EXTERNAL | | | | performed at [facility];[address] | mmol/L | LAB | | | | [address];[place] | | | | | | [address] | | | | + + + [...] EXTERNAL | | | | performed at [facility] | | LAB | | | | [facility];[place], [place] | | | | | | [address] | | | | + + + [...] EXTERNAL | | | | performed at [facility];[address] | | LAB | | | | [address];[place] | | | | | | [address] | | | | + + [...] EXTERNAL | | | | performed at [facility];[address] | mmol/L | LAB | | | | [address];[place], [place] | | | | | | [address] | | | | + + + [...] EXTERNAL | | | | performed at [facility];[address] | | LAB | | | | [address];[place] | | | | | | [address] | | | | + + + [...] EXTERNAL | | | | performed at [facility];8 | | LAB | | | | [facility];[place], [place] | | | | | | [address] | | | | + + + [...] | | | | | [place] [address] | | | | + + + + + + | RED CELL | 3.40 (L)Comment: Testing | 3.70 - 5.10 | EXTERNAL | | | COUNT | performed at [facility], [address] | [address]/uL | LAB | | | | [address], | | | | | | [place] [address] | | | | + + + + + + | Hgb | 12.0Comment: Testing | 11.3 - 15.5 | EXTERNAL | | | | performed at [facility], [address] | g/dL | LAB | | | | [address], | | | | | | [place] [address] | | | | + + + + + + | Hematocrit, | 35.8Comment: Testing | 34.0 - 46.0 % | EXTERNAL | | | POC | performed at [facility], [address] | | LAB | | | | [address], | | | | | | [place] [address] | | | | + + + + + + | MCV | 105.3 (H)Comment: | 80.0 - 100.0 fl | EXTERNAL | | | | Testing performed at | | LAB | | | | [facility], [address] [facility] | | | | | | [place] | | | | | | [address] | | | | + + + + + + | MCH | 35.3 (H)Comment: Testing | 27.0 - 34.0 pg | EXTERNAL | | | | performed at [facility], [address] | | LAB | | | | [address], | | | | | | [place] [address] | | | | + + + + + + | MCHC | 33.6Comment: Testing | 32.0 - 35.5 | EXTERNAL | | | | performed at [facility], [address] | g/dL | LAB | | | | [address], | | | | | | [place] [address] | | | | + + + + + + | RDW-CV | 50.8Comment: Testing | 37 - 53 fl | EXTERNAL | | | | performed at [facility], [address] | | LAB | | | | [address], | | | | | | [place] [address] | | | | + + + + + + | Platelet | 149 (L)Comment: Testing | 150 - 400 K/uL | EXTERNAL | | | Count | performed at [facility], [address] | | LAB | | | Plasma | [address], | | | | | | [place] [address] | | | | + + + + + + | MPV | 13.0Comment: Testing | fl | EXTERNAL | | | | performed at [facility], [address] | | LAB | | | | [address], | | | | | | [place] [address] | | | | + + + + + + | Differentia | AUTOMATEDComment: | | EXTERNAL | | | l Type | Testing performed at | | LAB | | | | [facility], [address] | | | | | | [place] | | | | | | [address] | | | | + + + + + + | % Segmented | 52.08Comment: Testing | % | EXTERNAL | | | | performed at [facility], [address] | | LAB | | | Neutrophils | [address], | | | | | | [place] [address] | | | | + + + + + + | % | 32.37Comment: Testing | % | EXTERNAL | | | Lymphocytes | performed at [facility], [address] | | LAB | | | | [address], | | | | | | [place] [address] | | | | + + + + + + | % Monocytes | 10.07Comment: Testing | % | EXTERNAL | | | | performed at [facility], [address] | | LAB | | | | [address], | | | | | | [place] [address] | | | | + + + + + + | % | 4.41Comment: Testing | % | EXTERNAL | | | Eosinophils | performed at [facility], [address] | | LAB | | | | [address], | | | | | | [place] [address] | | | | + + + + + + | % Basophils | 1.07Comment: Testing | % | EXTERNAL | | | | performed at [facility], [address] | | LAB | | | | [address], | | | | | | [place] [address] | | | | + + + + + + | Absolute | 5.59Comment: Testing | 1.90 - 7.40 | EXTERNAL | | | Segmented | performed at [facility], [address] | K/uL | LAB | | | Neutrophils | [address], | | | | | | [place] [address] | | | | + + + + + + | Absolute | 3.48Comment: Testing | 1.00 - 3.90 | EXTERNAL | | | Lymphocytes | performed at [facility], [address] | K/uL | LAB | | | | [address], | | | | | | [place] [address] | | | | + + + + + + | Absolute | 1.08 (H)Comment: Testing | 0.00 - 0.80 | EXTERNAL | | | Monocytes | performed at [facility], [address] | [address] | LAB | | | | [address], | | | | | | [place] [address] | | | | + + + + + + | Absolute | 0.47Comment: Testing | 0.00 - 0.50 | EXTERNAL | | | Eosinophils | performed at [facility], [address] | K/uL | LAB | | | | [address], | | | | | | [place] [address] | | | | + + + + + + | Absolute | 0.12 (H)Comment: Testing | 0.00 - 0.10 | EXTERNAL | | | Basophils | performed at [facility], [address] | [address] | LAB | | | | [address], | | | | | | [place] [address] | | | | + + + + + + | RBC | NORMAL RBC MORPHComment: | | EXTERNAL | | | Morphology | Testing performed at | | LAB | | | | [facility], [address] | | | | | | [place] | | | | | | [address] | | | | + + + + + + | Differentia | 1+ GIANT PLTComment: | | EXTERNAL | | | l Comments | Testing performed at | | LAB | | | | [facility], [address] | | | | | | [place] | | | | | | [address] | | | | + + + [...] | | | | | [place] [address] | | | | + + + + + + | K | 3.2 (L)Comment: Testing | 3.5 - 4.9 | EXTERNAL | | | | performed at [facility], [address] | mmol/L | LAB | | | | [address], | | | | | | [place] [address] | | | | + + + + + + | Cl | 100Comment: Testing | 99 - 109 mmol/L | EXTERNAL | | | | performed at [facility], [address] | | LAB | | | | [address], | | | | | | [place] [address] | | | | + + + + + + | CO2 | 28Comment: Testing | 23 - 32 mmol/L | EXTERNAL | | | | performed at [facility], [address] | | LAB | | | | [address], | | | | | | [place] [address] | | | | + + + + + + | Anion Gap | 13Comment: Testing | 5 - 20 mmol/L | EXTERNAL | | | | performed at [facility], [address] | | LAB | | | | [address], | | | | | | [place] [address] | | | | + + + + + + | Glucose, | 114 (H)Comment: Testing | 65 - 99 mg/dL | EXTERNAL | | | Fasting | performed at [facility], [address] | | LAB | | | | [address], | | | | | | [place] [address] | | | | + + + + + + | BUN | 8Comment: Testing | 8 - 25 mg/dL | EXTERNAL | | | | performed at [facility], [address] | | LAB | | | | [address], | | | | | | [place] [address] | | | | + + + + + + | Creatinine | 0.94Comment: Testing | 0.50 - 1.00 | EXTERNAL | | | | performed at [facility], [address] | mg/dL | LAB | | | | [address], | | | | | | [place] [address] | | | | + + + + + + | BUN/Creatin | 9Comment: Testing | | EXTERNAL | | | ine Ratio | performed at [facility], [address] | | LAB | | | | [address], | | | | | | [place] [address] | | | | + + + + + + | Calcium | 7.8 (L)Comment: Testing | 8.5 - 10.5 | EXTERNAL | | | | performed at [facility], [address] | mg/dL | LAB | | | | [address], | | | | | | [place] [address] | | | | + + + + + + | Protein, | 7.8Comment: Testing | 6.3 - 8.2 g/dL | EXTERNAL | | | Total | performed at [facility], [address] | | LAB | | | | [address], | | | | | | [place] [address] | | | | + + + + + + | Albumin | 3.3Comment: Testing | 3.3 - 4.8 g/dL | EXTERNAL | | | | performed at [facility], [address] | | LAB | | | [address], | | | | | | [place] [address] | | | | + + + + + + | Globulin | 4.5Comment: Testing | 1.3 - 4.9 g/dL | EXTERNAL | | | | performed at [facility], [address] | | LAB | | | [address], | | | | | | [place] [address] | | | | + + + + + + | A/G Ratio | 0.7 (L)Comment: Testing | 1.0 - 2.4 | EXTERNAL | | | | performed at [facility], [address] | | LAB | | | | [address], | | | | | | [place] [address] | | | | + + + + + + | Bilirubin | 0.4Comment: Testing | 0.1 - 1.5 mg/dL | EXTERNAL | | | Total | performed at [facility], [address] | | LAB | | | | [address], | | | | | | [place] [address] | | | | + + + + + + | ALP, | 83Comment: Testing | 35 - 115 U/L | EXTERNAL | | | External | performed at [facility], [address] | | LAB | | | | [address], | | | | | | [place] [address] | | | | + + + + + + | AST | 34Comment: Testing | 10 - 45 U/L | EXTERNAL | | | | performed at [facility], [address] | | LAB | | | | [address], | | | | | | [place] [address] | | | | + + + + + + | ALT | 24Comment: Testing | 10 - 65 U/L | EXTERNAL | | | | performed at [facility], [address] | | LAB | | | | [facility], | | | | | | [place] [address] | | | | + + + [...] W | | | | | | [facility], | | | | | | [place] [address] | | | | + + [...] LAB | | | | performed at [facility] | | | | | | [facility];[place], [place] | | | | | | [address] | | | | + + + [...] LAB | | | | performed at [facility];[address] | | | | | | [address];[place], [place] | | | | | | [address] | | | | + + + [...] EXTERNAL | | | | performed at [facility];[address] | mmol/L | LAB | | | | [address];[place], [place] | | | | | | [address] | | | | + + + [...] EXTERNAL | | | | performed at [facility];[address] | | LAB | | | | [address];[place], [place] | | | | | | [address] | | | | + + + [...] TESTING. | | | Testing performed at [facility], [address] | | | [place] [address] | | + + + + +---------+ [...] | Testing performed at | | | [facility], [address] [place] [address] | | + + + + +---------+ [...] NONE SEEN to 1+ Testing performed at [facility], [address] [facility] | | | [place] [address] | | + + + + +---------+ [...] antigen detected by ICA Testing performed at [facility], [address] | | | [place] [address] | | + + + + +---------+ [...] at | | | | | | [facility], [address] | | | | | | [place] | | | | | | [address] | | | | + + + [...] [place] | | | | | | [place] [address] | | | | + + + [...] EXTERNAL | | | | performed at [facility];[address] | | LAB | | | | [facility];[place], [place] | | | | | | [address] | | | | + + + + + + | CMV DNA | NOT DETECTEDComment: | | EXTERNAL | | | QUANTITATIV | Unit: IU/MLTesting | | LAB | | | E INTERP | performed at [facility], [address] | | | | | | [place] | | | | | | [place] [address] | | | | + + + + + + | CMV DNA, | NOT DETECTEDComment: | | EXTERNAL | | | Qual PCR | Unit: COPIES/MLTesting | | LAB | | | | performed at [facility], [address] | | | | | | [place] | | | | | | [place] [address] | | | | + + + [...] [place] | | | | | | [address] | | | | + + + [...] | | | | performed at [facility], [address] | K/uL | LAB | | | | [address], | | | | | | [place] [address] | | | | + + + + + + | RED CELL | 3.28 (L)Comment: Testing | 3.70 - 5.10 | EXTERNAL | | | COUNT | performed at [facility], [address] | M/uL | LAB | | | | [address], | | | | | | [place] [address] | | | | + + + + + + | Hgb | 11.6Comment: Testing | 11.3 - 15.5 | EXTERNAL | | | | performed at [facility], [address] | g/dL | LAB | | | | [address], | | | | | | [place] [address] | | | | + + + + + + | Hematocrit, | 34.5Comment: Testing | 34.0 - 46.0 % | EXTERNAL | | | POC | performed at [facility], [address] | | LAB | | | | [address], | | | | | | [place] [address] | | | | + + + + + + | MCV | 105.1 (H)Comment: | 80.0 - 100.0 fl | EXTERNAL | | | | Testing performed at | | LAB | | | | [facility], [address] | | | | | | [place] | | | | | | [id number] | | | | + + + + + + | MCH | 35.3 (H)Comment: Testing | 27.0 - 34.0 pg | EXTERNAL | | | | performed at [facility], [address] | | LAB | | | | [address], | | | | | | [place] [address] | | | | + + + + + + | MCHC | 33.5Comment: Testing | 32.0 - 35.5 | EXTERNAL | | | | performed at [facility], [address] | g/dL | LAB | | | | [address], | | | | | | [place] [id number] | | | | + + + + + + | RDW-CV | 50.8Comment: Testing | 37 - 53 fl | EXTERNAL | | | | performed at [facility], [address] | | LAB | | | | [address], | | | | | | [place] [address] | | | | + + + + + + | Platelet | 144 (L)Comment: Testing | 150 - 400 K/uL | EXTERNAL | | | Count | performed at [facility], [address] | | LAB | | | Plasma | [address], | | | | | | [place] [address] | | | | + + + + + + | MPV | 13.0Comment: Testing | fl | EXTERNAL | | | | performed at [facility], [address] | | LAB | | | | [address], | | | | | | [place] [address] | | | | + + + + + + | Differentia | AUTOMATEDComment: | | EXTERNAL | | | l Type | Testing performed at | | LAB | | | | [facility], [address] | | | | | | [place] | | | | | | [address] | | | | + + + + + + | % Segmented | 37.99Comment: Testing | % | EXTERNAL | | | | performed at [facility], [address] | | LAB | | | Neutrophils | [address], | | | | | | [place] [address] | | | | + + + + + + | % | 43.49Comment: Testing | % | EXTERNAL | | | Lymphocytes | performed at [facility], [address] | | LAB | | | | [address], | | | | | | [place] [address] | | | | + + + + + + | % Monocytes | 11.24Comment: Testing | % | EXTERNAL | | | | performed at [facility], [address] | | LAB | | | | [address], | | | | | | [place] [address] | | | | + + + + + + | % | 5.97Comment: Testing | % | EXTERNAL | | | Eosinophils | performed at [facility], [address] | | LAB | | | | [address], | | | | | | [place] [address] | | | | + + + + + + | % Basophils | 1.31Comment: Testing | % | EXTERNAL | | | | performed at [facility], [address] | | LAB | | | | [address], | | | | | | [place] [address] | | | | + + + + + + | Absolute | 4.01Comment: Testing | 1.90 - 7.40 | EXTERNAL | | | Segmented | performed at [facility], [address] | K/uL | LAB | | | Neutrophils | [address], | | | | | | [place] [address] | | | | + + + + + + | Absolute | 4.59 (H)Comment: Testing | 1.00 - 3.90 | EXTERNAL | | | Lymphocytes | performed at [facility], [address] | [address]/u[address] | LAB | | | | [address], | | | | | | [place] [address] | | | | + + + + + + | Absolute | 1.19 (H)Comment: Testing | 0.00 - 0.80 | EXTERNAL | | | Monocytes | performed at [facility], [address] | K/uL | LAB | | | | [address], | | | | | | [place] [address] | | | | + + + + + + | Absolute | 0.63 (H)Comment: Testing | 0.00 - 0.50 | EXTERNAL | | | Eosinophils | performed at [facility], [address] | K/uL | LAB | | | | [address], | | | | | | [place] [address] | | | | + + + + + + | Absolute | 0.14 (H)Comment: Testing | 0.00 - 0.10 | EXTERNAL | | | Basophils | performed at [facility], [address] | K/uL | LAB | | | | [address], | | | | | | [place] [address] | | | | + + + + + + | RBC | NORMAL RBC MORPHComment: | | EXTERNAL | | | Morphology | Testing performed at | | LAB | | | | [facility], [address] | | | | | | [place] | | | | | | [address] | | | | + + + + + + | Differentia | 2+ GIANT PLTComment: | | EXTERNAL | | | l Comments | Testing performed at | | LAB | | | | [facility], [address] | | | | | | [place] | | | | | | [address] | | | | + + + [...] [place] | | | | | | [address] | | | | + + [...] | | | (REF) | performed at [facility], [address] | | LAB | | | | [address], | | | | | | [place] [address] | | | | + + + [...] | | | | | [place] [address] | | | | + + + [...] | | | | performed at [facility], [address] | | LAB | | | | [address], | | | | | | [place] [address] | | | | + + + [...] | | | | | [place] [address] | | | | + + + + + + | K | 3.0 (L)Comment: Testing | 3.5 - 4.9 | EXTERNAL | | | | performed at [facility], [address] | mmol/L | LAB | | | | [address], | | | | | | [place] [address] | | | | + + + + + + | Cl | 104Comment: Testing | 99 - 109 mmol/L | EXTERNAL | | | | performed at [facility], [address] | | LAB | | | [address], | | | | | | [place] [address] | | | | + + + + + + | CO2 | 22 (L)Comment: Testing | 23 - 32 mmol/L | EXTERNAL | | | | performed at [facility], [address] | | LAB | | | | [address], | | | | | | [place] [address] | | | | + + + + + + | Anion Gap | 15Comment: Testing | 5 - 20 mmol/L | EXTERNAL | | | | performed at [facility], [address] | | LAB | | | | [address], | | | | | | [place] [address] | | | | + + + + + + | Glucose, | 82Comment: Testing | 65 - 99 mg/dL | EXTERNAL | | | Fasting | performed at [facility], [address] | | LAB | | | | [address], | | | | | | [place] [address] | | | | + + + + + + | BUN | 13Comment: Testing | 8 - 25 mg/dL | EXTERNAL | | | | performed at [facility], [address] | | LAB | | | | [address], | | | | | | [place] [address] | | | | + + + + + + | Creatinine | 1.01 (H)Comment: Testing | 0.50 - 1.00 | EXTERNAL | | | | performed at [facility], [address] | mg/dL | LAB | | | | [address], | | | | | | [place] [address] | | | | + + + + + + | BUN/Creatin | 13Comment: Testing | | EXTERNAL | | | ine Ratio | performed at [facility], [address] | | LAB | | | | [address], | | | | | | [place] [address] | | | | + + + + + + | Calcium | 7.7 (L)Comment: Testing | 8.5 - 10.5 | EXTERNAL | | | | performed at [facility], [address] | mg/dL | LAB | | | | [address], | | | | | | [place] [address] | | | | + + + + + + | Protein, | 7.1Comment: Testing | 6.3 - 8.2 g/dL | EXTERNAL | | | Total | performed at [facility], [address] | | LAB | | | | [address], | | | | | | [place] [address] | | | | + + + + + + | Albumin | 3.2 (L)Comment: Testing | 3.3 - 4.8 g/dL | EXTERNAL | | | | performed at [facility], [address] | | LAB | | | | [address], | | | | | | [place] [address] | | | | + + + + + + | Globulin | 3.9Comment: Testing | 1.3 - 4.9 g/dL | EXTERNAL | | | | performed at [facility], [address] | | LAB | | | | [address], | | | | | | [place] [address] | | | | + + + + + + | A/G Ratio | 0.8 (L)Comment: Testing | 1.0 - 2.4 | EXTERNAL | | | | performed at [facility], [address] | | LAB | | | | [address], | | | | | | [place] [address] | | | | + + + + + + | Bilirubin | 0.4Comment: Testing | 0.1 - 1.5 mg/dL | EXTERNAL | | | Total | performed at [facility], [address] | | LAB | | | | [address], | | | | | | [place] [address] | | | | + + + + + + | ALP, | 76Comment: Testing | 35 - 115 U/L | EXTERNAL | | | External | performed at [facility], [address] | | LAB | | | | [address], | | | | | | [place] [address] | | | | + + + + + + | AST | 26Comment: Testing | 10 - 45 U/L | EXTERNAL | | | | performed at [facility], [address] | | LAB | | | | [address], | | | | | | [place] [address] | | | | + + + + + + | ALT | 19Comment: Testing | 10 - 65 U/L | EXTERNAL | | | | performed at [facility], [address] | | LAB | | | | [address], | | | | | | [place] [address] | | | | + + + [...] Jose, | | | | | | [place] [address] | | | | + + + [...] | | | | performed at [facility], [address] | | | | | | [address] [facility], | | | | | | [place] [address] | | | | + + + [...] | | | Urine | performed at [facility], [address] | | LAB | | | Random | [address], | | | | | | [place] [address] | | | | + + + [...] | at L, [address] [place] [address] | | + + + + +---------+ [...] LA/Ao: 1.57 D-E Excursion: 2.11 cm E-F Trigg: 0.09 m/s | | | EPSS: 0.48 [...] TV A Billy: 0.66 m/s TV Dec Trigg: 4.36 m/s2 TV Dec | | | Time: 184.41 ms TV E Billy: 0.80 m/s TV E/A Ratio: 1.21 | | | Pr Intern: NEDRA Authenticated by: Gil Coronel MD Report [...] | Index (A-L): 40.51 ml/m2LAAs A2C: 24.56 [id number] A-L A2C: 76.32 mlLAESV MOD A2C: | | 73.52 mlLALs A2C: 6.71 cmLAAs A4C: 24.96 mg2VNKFW A-L A4C: 79.86 mlLAESV MOD A4C: | | 77.20 mlLALs A4C: 6.62 cmAo Diam: 2.73 cmAV Cusp: 2.27 cmLA Diam: 4.29 | | cmLA/Ao: 1.57D-E Excursion: 2.11 cmE-F Trigg: 0.09 m/sEPSS: 0.48 cmHR: 77.41 | | BPMAV maxP.05 mmHgAV meanP.21 mmHgAV Vmax: 1.73 m/Sorin Vmean: 1.25 m/Sorin | | VTI: 34.68 cmAVA Vmax: 2.07 cm2AVA (VTI): 1.85 iy4NRLD Dopp: 2.60 l/ywxm2SFJM | | Dopp: 5.05 l/minHR: 78.81 BPMLVOT [...] | m/sTV A Billy: 0.66 m/sTV Dec Trigg: 4.36 m/s2TV Dec Time: 184.41 msTV E Billy: 0.80 | | m/sTV E/A Ratio: 1.21 Pr Intern: GDAuthenticated by: Gil Coronel [facility] | | Date/Time: 01-15-2015 09:12:05 IMPRESSION: 1. [...] | |D-E Excursion: 2.11 cm | |E-F Trigg: 0.09 m/s | |EPSS: 0.48 cm | [...] A Billy: 0.66 m/s | |TV Dec Trigg: 4.36 m/s2 | |TV Dec Time: 184.41 ms | |TV E Billy: 0.80 m/s | |TV E/A Ratio: 1.21 | | | |Pr Intern: NEDRA | |Authenticated by: Gil Coronel MD [...] | EXTERNAL LAB | | performed at [facility];[address] [facility];[place] [address] 027 NAP1 BI | | | 027 NAP1 BI PRESUMPTIVE NEGATIVE | | | Detection of 027 NAP1 BI strains of C. difficile is presumptive and | | | for epidemiological purposes and not intended to guide or monitor | | | treatment for C. difficile infections. Testing performed at [facility];[address] | | | [facility];[place] [address] | | + + + + +---------+ [...] | | | | | [place] [address] | | | | + + + + + + | Complement | 19.4Comment: Testing | 10 - 40 mg/dL | EXTERNAL | | | Comp 4 | performed at [facility], [address] | | LAB | | | | [address], | | | | | | [place] [address] | | | | + + + [...] | | | | | performed at [facility];[address] | | | | | | [address];[place], [place] | | | | | | [address] | | | | + + + [...] K/uL | LAB | | | | [facility];[address] | [address];[place] [address] | | | | + + + + + + | RED CELL | 3.27 (L)Comment: Testing | 3.70 - 5.10 | EXTERNAL | | | COUNT | performed at [facility];[address] | M/uL | LAB | | | | [address];[place] | | | | | | [address] | | | | + + + + + + | Hgb | 11.2 (L)Comment: Testing | 11.3 - 15.5 | EXTERNAL | | | | performed at [facility];888 | g/dL | LAB | | | | [address];[place] | | | | | | [address] | | | | + + + + + + | Hematocrit, | 34.4Comment: Testing | 34.0 - 46.0 % | EXTERNAL | | | POC | performed at [facility];[address] | | LAB | | | | [address];[place] | | | | | | [address] | | | | + + + + + + | MCV | 105.2 (H)Comment: | 80.0 - 100.0 fl | EXTERNAL | | | | Testing performed at | | LAB | | | | [facility];[address] | [address];[place] [address] | | | | + + + + + + | MCH | 34.2 (H)Comment: Testing | 27.0 - 34.0 pg | EXTERNAL | | | | performed at [facility];[address] | | LAB | | | | [address];[place] | | | | | | [address] | | | | + + + + + + | MCHC | 32.5Comment: Testing | 32.0 - 35.5 | EXTERNAL | | | | performed at [facility];888 | g/dL | LAB | | | | [address];[place] | | | | | | [address] | | | | + + + + + + | RDW-CV | 50.3Comment: Testing | 37 - 53 fl | EXTERNAL | | | | performed at [facility];[address] | | LAB | | | | [address];[place] | | | | | | [address] | | | | + + + + + + | Platelet | 160Comment: Testing | 150 - 400 K/uL | EXTERNAL | | | Count | performed at [facility];[address] | | LAB | | | Plasma | [address];[place] | | | | | | [address] | | | | + + + + + + | MPV | 11.1Comment: Testing | fl | EXTERNAL | | | | performed at [facility];[address] | | LAB | | | | [address];[place] | | | | | | [address] | | | | + + + + + + | Differentia | AUTOMATEDComment: | | EXTERNAL | | | l Type | Testing performed at | | LAB | | | | [facility];[address];[place] [address] | | | | + + + + + + | % Segmented | 50.65Comment: Testing | % | EXTERNAL | | | | performed at [facility];[address] | | LAB | | | Neutrophils | [address];[place] | | | | | | [address] | | | | + + + + + + | % | 37.06Comment: Testing | % | EXTERNAL | | | Lymphocytes | performed at [facility];[address] | | LAB | | | | [address];[place] | | | | | | [address] | | | | + + + + + + | % Monocytes | 9.60Comment: Testing | % | EXTERNAL | | | | performed at [facility];[address] | | LAB | | | | [address];[place] | | | | | | [address] | | | | + + + + + + | % | 1.30Comment: Testing | % | EXTERNAL | | | Eosinophils | performed at [facility];[address] | | LAB | | | | [address];[place] | | | | | | [address] | | | | + + + + + + | % Basophils | 1.39Comment: Testing | % | EXTERNAL | | | | performed at [facility];[address] | | LAB | | | | [address];[place] | | | | | | [address] | | | | + + + + + + | Absolute | 6.64Comment: Testing | 1.90 - 7.40 | EXTERNAL | | | Segmented | performed at [facility];[address] | K/uL | LAB | | | Neutrophils | [address];[place] | | | | | | [address] | | | | + + + + + + | Absolute | 4.86 (H)Comment: Testing | 1.00 - 3.90 | EXTERNAL | | | Lymphocytes | performed at [facility];[address] | K/uL | LAB | | | | [address];[place] | | | | | | [address] | | | | + + + + + + | Absolute | 1.26 (H)Comment: Testing | 0.00 - 0.80 | EXTERNAL | | | Monocytes | performed at [facility];[address] | K/uL | LAB | | | | [address];[place] | | | | | | [address] | | | | + + + + + + | Absolute | 0.17Comment: Testing | 0.00 - 0.50 | EXTERNAL | | | Eosinophils | performed at [facility];[address] | K/uL | LAB | | | | [address];[place] | | | | | | [address] | | | | + + + + + + | Absolute | 0.18 (H)Comment: Testing | 0.00 - 0.10 | EXTERNAL | | | Basophils | performed at [facility];[address] | K/uL | LAB | | | | [address];[place] | | | | | | [address] | | | | + + + [...] EXTERNAL | | | | performed at [facility];[address] | | LAB | | | | [facility];[place], [place] | | | | | | [address] | | | | + + + [...] LAB | | | | performed at [facility];[address] | | | | | | [address];[place], [place] | | | | | | [address] | | | | + + + [...] EXTERNAL | | | | performed at [facility];[address] | mmol/L | LAB | | | | [address];[place] | | | | | | [address] | | | | + + + + + + | K | 3.7Comment: SLT | 3.5 - 4.9 | EXTERNAL | | | | HEMOLYSISTesting | mmol/L | LAB | | | | performed at [facility];[address] | | | | | | [address];[place] | | | | | | [address] | | | | + + + + + + | Cl | 110 (H)Comment: Testing | 99 - 109 mmol/L | EXTERNAL | | | | performed at [facility];[address] | | LAB | | | | [address];[place] | | | | | | [address] | | | | + + + + + + | CO2 | 24Comment: Testing | 23 - 32 mmol/L | EXTERNAL | | | | performed at [facility];[address] | | LAB | | | | [address];[place] | | | | | | [address] | | | | + + + + + + | Anion Gap | 13Comment: Testing | 5 - 20 mmol/L | EXTERNAL | | | | performed at [facility];[address] | | LAB | | | | [address];[place] | | | | | | [address] | | | | + + + + + + | Glucose, | 109 (H)Comment: Testing | 65 - 99 mg/dL | EXTERNAL | | | Fasting | performed at [facility];[address] | | LAB | | | | [address];[place] | | | | | | [address] | | | | + + + + + + | BUN | 24Comment: Testing | 8 - 25 mg/dL | EXTERNAL | | | | performed at [facility];[address] | | LAB | | | | [address];[place] | | | | | | [address] | | | | + + + + + + | Creatinine | 1.7 (H)Comment: Testing | 0.50 - 1.00 | EXTERNAL | | | | performed at [facility];888 | mg/dL | LAB | | | | [address];[place] | | | | | | [address] | | | | + + + + + + | BUN/Creatin | 14Comment: Testing | | EXTERNAL | | | ine Ratio | performed at [facility];[address] | | LAB | | | | [address];[place] | | | | | | [address] | | | | + + + + + + | Calcium | 7.4 (L)Comment: Testing | 8.5 - 10.5 | EXTERNAL | | | | performed at [facility];888 | mg/dL | LAB | | | | [address];[place] | | | | | | [address] | | | | + + + + + + | Protein, | 7.0Comment: Testing | 6.3 - 8.2 g/dL | EXTERNAL | | | Total | performed at [facility];[address] | | LAB | | | | [address];[place] | | | | | | [address] | | | | + + + + + + | Albumin | 2.6 (L)Comment: Testing | 3.3 - 4.8 g/dL | EXTERNAL | | | | performed at [facility];[address] | | LAB | | | | [address];[place] | | | | | | [address] | | | | + + + + + + | Globulin | 4.3Comment: Testing | 1.3 - 4.9 g/dL | EXTERNAL | | | | performed at [facility];[address] | | LAB | | | | [address];[place] | | | | | | [address] | | | | + + + + + + | A/G Ratio | 0.6 (L)Comment: Testing | 1.0 - 2.4 | EXTERNAL | | | | performed at [facility];[address] | | LAB | | | | [address];[place] | | | | | | [address] | | | | + + + + + + | Bilirubin | 0.4Comment: Testing | 0.1 - 1.5 mg/dL | EXTERNAL | | | Total | performed at [facility];[address] | | LAB | | | | [address];[place] | | | | | | [address] | | | | + + + + + + | ALP, | 92Comment: Testing | 35 - 115 U/L | EXTERNAL | | | External | performed at [facility];[address] | | LAB | | | | [address];[place] | | | | | | [address] | | | | + + + + + + | AST | 35Comment: SLT | 10 - 45 U/L | EXTERNAL | | | | HEMOLYSISTesting | | LAB | | | | performed at [facility];[address] | | | | | | [facility];[place] | | | | | | [address] | | | | + + + + + + | ALT | 29Comment: Testing | 10 - 65 U/L | EXTERNAL | | | | performed at [facility];[address] | | LAB | | | | [address];[place] | | | | | | [address] | | | | + + + [...] | | | | | | at [facility];[address] [facility] | | | | | | Blvd;[place] [address] | | | | + + + [...] EXTERNAL | | | | performed at [facility];888 | uIU/mL | LAB | | | | [address];[place], [place] | | | | | | [address] | | | | + + + [...] | | | | | performed at [facility];[address] | | | | | | [facility];[place], [place] | | | | | | [address] | | | | + + + [...] GROWTH | | | Testing performed at [facility], | | | [address] [place] [address] | | + + + + +---------+ [...] | | study for comparison: None FINDINGS: [employer] 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 | | | [...] study | | for comparison: None FINDINGS: [employer] 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 degenerative changes of [...] NEGATIVE Testing | | | performed at [facility];[address] [place] [address];[place] [address] | | + + + + +---------+ [...] | | | | | | at [facility];[address] [place] [address] | | | | | | [facility];[place] [address] | | | | + + + [...] EXTERNAL | | | | performed at [facility];[address] | | LAB | | | | [address];[place], [place] | | | | | | [address] | | | | + + + [...] EXTERNAL | | | | performed at [facility] | | LAB | | | | [address];[place] | | | | | | [address] | | | | + + + [...] EXTERNAL | | | | performed at [facility];888 | mmol/L | LAB | | | | [address];[place], [place] | | | | | | [address] | | | | + + + [...] | | | | | [place] [address] | | | | + + + [...] [place] | | | | | | [address] | | | | + + + [...] (500), | | | | | | publishing editor Shala Gramajo | | | | [...] EXTERNAL | | | | performed at [facility];[address] | | LAB | | | | [address];[place] | | | | | | [address] | | | | + + + [...] EXTERNAL | | | | performed at [facility];[address] | | LAB | | | | [facility], [place] | | | | | | [address] | | | | + + + [...] LAB | | | | performed at [facility] | | | | | | [address];[place], [place] | | | | | | [address] | | | | + + + [...] EXTERNAL | | | | performed at [facility];[address] | | LAB | | | | [address];[place], [place] | | | | | | [address] | | | | + + + [...] EXTERNAL | | | | performed at [facility];[address] | | LAB | | | | [address];[place] | | | | | | [address] | | | | + + + [...] K/uL | LAB | | | | [facility];[address] | | | | | | [address];[place] [address] | | | | + + + + + + | RED CELL | 4.17Comment: Testing | 3.70 - 5.10 | EXTERNAL | | | COUNT | performed at [facility];888 | M/uL | LAB | | | | [address];[place] | | | | | | [address] | | | | + + + + + + | Hgb | 14.6Comment: Testing | 11.3 - 15.5 | EXTERNAL | | | | performed at [facility];888 | g/dL | LAB | | | | [address];[place] | | | | | | [address] | | | | + + + + + + | Hematocrit, | 42.7Comment: Testing | 34.0 - 46.0 % | EXTERNAL | | | POC | performed at [facility];[address] | | LAB | | | | [address];[place] | | | | | | [address] | | | | + + + + + + | MCV | 102.3 (H)Comment: | 80.0 - 100.0 fl | EXTERNAL | | | | Testing performed at | | LAB | | | | [facility];[address] | | | | | | [address];[place] [address] | | | | + + + + + + | MCH | 35.0 (H)Comment: Testing | 27.0 - 34.0 pg | EXTERNAL | | | | performed at [facility];[address] | | LAB | | | | [address];[place] | | | | | | [address] | | | | + + + + + + | MCHC | 34.2Comment: Testing | 32.0 - 35.5 | EXTERNAL | | | | performed at [facility];888 | g/dL | LAB | | | | [address];[place] | | | | | | [address] | | | | + + + + + + | RDW-CV | 49.9Comment: Testing | 37 - 53 fl | EXTERNAL | | | | performed at [facility];[address] | | LAB | | | | [address];[place] | | | | | | [address] | | | | + + + + + + | Platelet | 209Comment: Testing | 150 - 400 K/uL | EXTERNAL | | | Count | performed at [facility];[address] | | LAB | | | Plasma | [address];[place] | | | | | | [address] | | | | + + + + + + | MPV | 11.1Comment: Testing | fl | EXTERNAL | | | | performed at [facility];[address] | | LAB | | | | [address];[place] | | | | | | [address] | | | | + + + + + + | RBC | 1+Comment: GIANT | | EXTERNAL | | | Morphology | PLATELETS1+MACROTesting | | LAB | | | | performed at [facility];[address] | | | | | | [address];[place] | | | | | | [address] | | | | | |Testing performed at [facility];[address];[place] [address] | | | | | | | | | | + + + + + + | Differentia | MANUALComment: Testing | | EXTERNAL | | | l Type | performed at [facility];[address] | | LAB | | | | [address];[place] | | | | | | [address] | | | | + + + + + + | Segmented | 58Comment: Testing | % | EXTERNAL | | | Neutrophils | performed at [facility];[address] | | LAB | | | Manual | [address];[place] | | | | | | [address] | | | | + + + + + + | Lymphocytes | 32Comment: Testing | % | EXTERNAL | | | Manual | performed at [facility];[address] | | LAB | | | | [address];[place] | | | | | | [address] | | | | + + + + + + | Monocytes | 9Comment: Testing | % | EXTERNAL | | | Manual | performed at [facility];[address] | | LAB | | | | [address];[place] | | | | | | [address] | | | | + + + + + + | Eosinophils | 1Comment: Testing | % | EXTERNAL | | | Manual | performed at [facility];[address] | | LAB | | | | [address];[place] | | | | | | [address] | | | | + + + + + + | Absolute | 9.39 (H)Comment: Testing | 1.90 - 7.40 | EXTERNAL | | | Neutrophils | performed at [facility];[address] | K/uL | LAB | | | | [address];[place] | | | | | | [address] | | | | + + + + + + | Absolute | 5.18 (H)Comment: Testing | 1.00 - 3.90 | EXTERNAL | | | Lymphocytes | performed at [facility];[address] | K/uL | LAB | | | | [address];[place] | | | | | | [address] | | | | + + + + + + | Absolute | 1.46 (H)Comment: Testing | 0.00 - 0.80 | EXTERNAL | | | Monocytes | performed at [facility];[address] | K/uL | LAB | | | | [address];[place] | | | | | | [address] | | | | + + + + + + | Absolute | 0.16Comment: Testing | 0.00 - 0.50 | EXTERNAL | | | Eosinophils | performed at [facility];[address] | K/uL | LAB | | | | [address];[place] | | | | | | [address] | | | | + + + + + + | Na | 140Comment: Testing | 135 - 143 | EXTERNAL | | | | performed at [facility];888 | mmol/L | LAB | | | | [address];[place] | | | | | | [address] | | | | + + + + + + | K | 2.8 (L)Comment: Testing | 3.5 - 4.9 | EXTERNAL | | | | performed at [facility];888 | mmol/L | LAB | | | | [address];[place] | | | | | | [address] | | | | + + + + + + | Cl | 100Comment: Testing | 99 - 109 mmol/L | EXTERNAL | | | | performed at [facility];[address] | | LAB | | | | [address];[place] | | | | | | [address] | | | | + + + + + + | CO2 | 29Comment: Testing | 23 - 32 mmol/L | EXTERNAL | | | | performed at [facility];[address] | | LAB | | | | [address];[place] | | | | | | [address] | | | | + + + + + + | Anion Gap | 14Comment: Testing | 5 - 20 mmol/L | EXTERNAL | | | | performed at [facility];[address] | | LAB | | | | [address];[place] | | | | | | [address] | | | | + + + + + + | Glucose, | 107 (H)Comment: Testing | 65 - 99 mg/dL | EXTERNAL | | | Fasting | performed at [facility];[address] | | LAB | | | | [address];[place] | | | | | | [address] | | | | + + + + + + | BUN | 28 (H)Comment: Testing | 8 - 25 mg/dL | EXTERNAL | | | | performed at [facility];[address] | | LAB | | | | [address];[place] | | | | | | [address] | | | | + + + + + + | Creatinine | 2.4 (H)Comment: Testing | 0.50 - 1.00 | EXTERNAL | | | | performed at [facility];[address] | mg/dL | LAB | | | | [address];[place] | | | | | | [address] | | | | + + + + + + | BUN/Creatin | 12Comment: Testing | | EXTERNAL | | | ine Ratio | performed at [facility] [facility];[address] | | LAB | | | | [address];[place] | | | | | | [address] | | | | + + + + + + | Calcium | 8.1 (L)Comment: Testing | 8.5 - 10.5 | EXTERNAL | | | | performed at [facility] | mg/dL | LAB | | | | [address];[place] | | | | | | [address] | | | | + + + + + + | Protein, | 9.3 (H)Comment: Testing | 6.3 - 8.2 g/dL | EXTERNAL | | | Total | performed at [facility] | | LAB | | | | [address];[place] | | | | | | [address] | | | | + + + + + + | Albumin | 3.3Comment: Testing | 3.3 - 4.8 g/dL | EXTERNAL | | | | performed at [facility];[address] | | LAB | | | | [address];[place] | | | | | | [address] | | | | + + + + + + | Globulin | 6.0 (H)Comment: Testing | 1.3 - 4.9 g/dL | EXTERNAL | | | | performed at [facility];[address] | | LAB | | | | [address];[place] | | | | | | [address] | | | | + + + + + + | A/G Ratio | 0.5 (L)Comment: Testing | 1.0 - 2.4 | EXTERNAL | | | | performed at [facility];[address] | | LAB | | | | [address];[place] | | | | | | [address] | | | | + + + + + + | Bilirubin | 0.4Comment: Testing | 0.1 - 1.5 mg/dL | EXTERNAL | | | Total | performed at [facility] | | LAB | | | | [address];[place] | | | | | | [address] | | | | + + + + + + | ALP, | 129 (H)Comment: Testing | 35 - 115 U/L | EXTERNAL | | | External | performed at [facility] | | LAB | | | | [address];[place] | | | | | | [address] | | | | + + + + + + | AST | 39Comment: Testing | 10 - 45 U/L | EXTERNAL | | | | performed at [facility] | | LAB | | | | [address];[place] | | | | | | [address] | | | | + + + + + + | ALT | 38Comment: Testing | 10 - 65 U/L | EXTERNAL | | | | performed at [facility] | | LAB | | | | [address];[place] | | | | | | [address] | | | | + + + [...] | | | | | | at [facility];[address] | | | | | | [address];[place] [address] | | | | + + + + + + | CK, Total | 151Comment: Testing | 30 - 240 U/L | EXTERNAL | | | | performed at [facility];[address] | | LAB | | | | [address];[place] | | | | | | [address] | | | | + + + [...] | | | | | performed at [facility];[address] | | | | | | [address];[place] | | | | | | [address] | | | | + + + + + + | aPTT, | 26Comment: Testing | 23 - 32 seconds | EXTERNAL | | | Patient | performed at [facility] | | LAB | | | | [address];[place] | | | | | | [address] | | | | + + + + + + | CK-MB | 3.9 (H)Comment: Testing | 0.5 - 3.6 ng/mL | EXTERNAL | | | | performed at [facility];[address] | | LAB | | | | [address];[place] | | | | | | [address] | | | | + + [...] | | | | | performed at [facility];[address] | | | | | | [facility];[place], [place] | | | | | | [address] | | | | + + + [...]
--- OUTSIDE RECORDS SUMMARY | ~2019-05-09 | XMS | Encounter Summary ---
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 Over last [...] copy of the patient's echocardiogram from [facility] will be reviewed. CC: Yovani Santana documented in this encounter Plan of Treatment Not on filedocumented as of this encounter Results PFT PULMONARY FUNCTION TESTING ORDERS Full PFT ([place] w/BD, lung volumes, diffusion)?: Yes; Rest and [...] Melendez MD 03/27/2014 13:24 | | | [facility] | | + + + + + [...] signed by: Gary Melendez MD 03/27/2014 13:24[facility] | | [facility] | | | |No prior pulmonary function tests available for comparison. | | | |Test performed: 03/26/14 | |Electronically signed by: Gary Melendez MD 03/27/2014 13:24 | |[facility] | + + documented in this encounter Visit Diagnoses + + | Diagnosis | + + | Hypoxemia - Primary | + + | Kyphosis deformity of spine Kyphosis (acquired) (postural) | + + documented in this encounter
--- OUTSIDE RECORDS SUMMARY | ~2019-05-09 | XMS | Clinical Summary ---
Demographics + + + | Address | [address] | | | [place] [address] | + + + | Home Phone | | + + + | Preferred Language | Unknown | + + + | Marital Status | Unknown | + + + | Congregational Affiliation | Unknown | + + + | Race | Unknown | + + + | Ethnic Group | Unknown | + + + Author + + + | Author | [facility] | + + + | Organization | [facility] | + + + | Address | Unknown | + + + | Phone | Unavailable | + + + Care Team Providers + +------+ + | Care Tipple Worker Name | Role | Phone | + +------+ + PCP | Unavailable | + +------+ + Source Comments JAYDEN is fully live on both EpicCare Ambulatory and EpicCare InPatient.[facility] Allergies Not on File Medications [...]
--- OUTSIDE RECORDS SUMMARY | ~2019-05-09 | XMS | Encounter Summary ---
Demographics + + + | Address | [address] | | | [place] [address] | + + + | Home Phone [...] Team Providers + +------+ + | Care Brush Clearing Laborer Name | Role | Phone | + +------+ + | Rick Osorio DO | PCP | | + +------+ + Encounter Details +--------+ + + + + | Date | Type | Department | Care Team | Description | +--------+ + + + + | 11/15/ | Orders Only | [facility] | Emil Oliva MD | | | 2014 | | NEPHROLOGY [place] | [address] [place] | | | | | [address] | [address] [place], [place] | | | | | [address] [place], [place] | [address] | | | | | [address] | | | | | | [phone] | | | +--------+ + + + [...]
--- OUTSIDE RECORDS SUMMARY | ~2019-05-09 | XMS | Clinical Summary ---
Demographics + + + | Address | [address] | | | [place] [address] | + + + | Home Phone | | + + + | Preferred Language | Unknown | + + + | Marital Status | Single | + + + | Jewish Affiliation | 1041 | + + + | Race | Unknown | + + + | Ethnic Group | Unknown | + + + Author + + + | Author | [facility] | | | and [place] | + + + | Organization | [facility] | | [...] Team Providers + +------+ + | Care Cutter Apprentice Hand Name | Role | Phone | [...] | [employer] | [facility] | [id number] | 05/23/19 | | | Medica | [...] | | | | | | | [address] | + +--------+ +--------+ + + Advance Directives + + + + + | Type | Date Recorded | Patient | Explanation | | | | Airport Operations Officer | | + + + + + | Power of | | | | | Biomathematician | | | | + + + + + | Advance | 05/10/2014 | | | | Directive | 12:33 PM | | | + + + + +
--- OUTSIDE RECORDS SUMMARY | 2019-05-09 11:20 | XMS ---
PreManage Notification: COLE ERNST Security Portfolio Architect Events No recent Security Events currently on file CRITERIA MET - [facility] - Has Care Guidelines - PDMP - [facility] - 2 Visits in 30 Days CARE PROVIDERS Name Unknown Prison Facility Current PHONE: [phone] Cindy Meyer Director Recreation/Computer Programmer Chief 01/17/2019-Current PHONE: [phone] [facility]US Internal Medicine 02/06/2018-Current PHONE: Unknown Cindy Meyer Primary Care 01/17/2019-Current PHONE: [phone] Anu has no Care Guidelines for this patient. Care History Medical/Surgical 02/06/2018 [facility] - Patient is currently established with [facility]. If patient is seen in the ED during business hours. Please contact CHWs at [facility]. Care Recommendation: This patient has [...] providing care. E.D. VISIT COUNT (12 MO.) 5 [facility]. TOTAL 5 NOTE: Visits indicate total known visits. 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 - Hypothyroidism, unspecified - Overexertion from prolonged static or awkward postures, init 06/04/2018 09:27 [facility] [place] TYPE: Emergency COMPLAINT: - WEAKNESS/COUGH INPATIENT VISIT TRACKING (12 MO.) 11/29/2018 09:11 [facility] [place] TYPE: Medical Surgical COMPLAINT: - ZULAY,UTI,R FOOT FX DIAGNOSES: - Scoliosis, unspecified - Disp fx of second metatarsal bone, right foot, init - Unsp place in [facility] as place - Other prison (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 - Unspecified fall, initial encounter - Acute kidney failure, unspecified - Oth bacterial agents as the cause of diseases classd elswhr - Chronic kidney disease, unspecified - Unsp place in [facility] as place - Hypothyroidism, unspecified - [...] coagulation profile - Scoliosis, unspecified - 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 [place] TYPE: Medical Surgical COMPLAINT: - AFIB [...] supplemental oxygen - Dependence on supplemental oxygen [email or web address]
--- NOTE | 2019-05-09 15:32 | NUR ---
Telephone report received by ROB Hernandez.
--- NOTE | 2019-05-09 15:45 | NUR ---
Patient arrives to unit via stretcher from ED. Patient transfers to hospital bed with 2 PA. O2 sat of 96% on 2LNC. Cardiac monitoring placed on patient, assessment complete. Patient oriented to room, friend at bedside.
--- NOTE | 2019-05-09 16:15 | NUR ---
Patient ambulated to toilet with FWW and 1PA. Voided 200 mls plus unmeasured. Returned to bed, 2LNC in place. Call light within reach.
[2019-05-09] MEDS ORDERED: DILTIAZEM ER120 MG PO (16:33)
[2019-05-09] MEDS ORDERED: LEVOTHYROXINE88 MCG PO (16:34)
--- NOTE | 2019-05-09 17:00 | NUR ---
Patient HR fluctuating between 140-160's. 5mg of IV metoprolol given. Will continue to monitor.
--- NOTE | 2019-05-09 17:31 | NUR ---
Patient laying in bed watching tv. HR in the 120's. Denies needs at this time, call light within reach.
[2019-05-09] MEDS ORDERED: ALENDRONATE SOD70 MG PO (18:15)
[2019-05-09] MEDS ORDERED: PRAVASTATIN SOD10 MG PO (18:16)
[2019-05-09] MEDS ORDERED: WARFARIN SODIUM5 MG PO (18:18)
--- NOTE | 2019-05-09 18:19 | NUR ---
Medications reconciled using pharmacy records, viewing medication vials and patient interview. Patient will use her own cyclosporin while inpatient. Please assure that it is returned to her upon discharge.
--- NOTE | 2019-05-09 18:33 | NUR ---
Patient up to bedside commode with FWW on 2LNC. Returns to bed, dinner delivered. PM medications given. No further needs at this time, call light within reach.
--- NOTE | 2019-05-09 18:45 | EKG ---
[facility] [address] [facility] [facility] [address] [facility] [place] [address] Signed Atrial fibrillation with rapid ventricular response Nonspecific T wave abnormality Abnormal ECG When compared with ECG of 06-MAY-2019 15:21, No significant change was found Confirmed by TODD ORELLANA DO ([id number]) on 05/09/2019 6:45:32 PM Electronically Signed By: TODD ORELLANA DO 05/09/19 1845 PATIENT NAME: ERNSTCOLE Electrocardiogram DATE OF : 45 PHYSICIAN: TODD ORELLANA DO REPORT #: [id number] REPORT IS CONFIDENTIAL AND NOT TO BE RELEASED WITHOUT AUTHORIZATION
--- NOTE | 2019-05-09 19:35 | NUR ---
IN ROOM FOR REPORT, PT IS AWAKE IN BED. SHE IS SAYING SHE IS FEELING ANXIOUS AND WOULD LIKE SOMETHING TO CALM HER. SHE DENIES OTHER SYMPTOMS. SPOKE WITH PT ABOUT HER EVENING MEDS AND SHE THINKS THEY MAY HELP. WILL BE BACK TO GIVE MEDS SHORTLY AFTER 8PM. CALL LIGHT IS CLOSE AND PT DENIES FURTHER NEEDS.
--- NOTE | 2019-05-09 20:28 | NUR ---
HELPED PT TO THE BSC AND BACK TO BED WITH HER FWW. VITALS AND I&OS DONE AND CHARTED. BEDSIDE TABLE AND CALL LIGHT IN REACH.
--- NOTE | 2019-05-09 20:34 | NUR ---
IN ROOM TO ASSESS PT AND ADMINISTER MEDICATIONS. SHE SAYS SHE IS FEELING ANXIOUS BUT THE GABABPENTIN AND REMERON USUALLY HELP. SHE HAS TAPE ON HER RT ANKLE FROM A PREVIOUS FOOT FRACTURE. SHE DENIES SOB AND PAIN AT THIS TIME. SHE IS ON TELE WITH HR IN THE LOW 100'S AND SHE DENIES PALPITATIONS. SHE DENIES NEEDS AT THIS TIME. CALL LIGHT IS CLOSE.
--- NOTE | 2019-05-09 23:21 | NUR ---
PT IS RESTING WITH EYES CLOSED, RR IS EVEN AND NONLABORED. CALL LIGHT IS CLOSE.
--- NOTE | 2019-05-10 00:24 | NUR ---
PT IS RESTING WITH EYES CLOSED, RR IS EVEN AND NONLABORED. CALL LIGHT IS CLOSE.
--- NOTE | 2019-05-10 02:08 | NUR ---
0200 VS COMPLETE. NOTHING FURTHER NEEDED AT THIS TIME.
--- NOTE | 2019-05-10 02:15 | NUR ---
IN ROOM TO ADMINISTER MEDICATIONS. PT REPORTS A FLUTTER FEELING IN HEART BUT DENIES FURTHER NEEDS. TELEMETRY SHOW HER HR BOUNCES FROM UPPER 80'S TO LOW 100'S AT THIS TIME. UPDATED PT ON THIS AND SHE FEELS REASSURED. ADVISED PT TO CALL IF SHE HAS ANY OTHER SYMPTOMS INCLUDING PAIN. SHE DENIES FURTHER NEEDS AT THIS TIME. CALL LIGHT IS WITHIN REACH.
--- NOTE | 2019-05-10 04:08 | NUR ---
PT IS RESTING WITH EYES CLOSED, RR IS EVEN AND NONLABORED. CALL LIGHT IS CLOSE.
--- NOTE | 2019-05-10 06:12 | NUR ---
PT IS RESTING WITH EYES CLOSED, RR IS EVEN AND NONLABORED. CALL LIGHT IS CLOSE.
--- NOTE | 2019-05-10 06:47 | NUR ---
IN ROOM TO ADMINISTER THYROID MED. PT DENIES FURTHER NEEDS AT THIS TIME. CALL LIGHT IS CLOSE.
--- NOTE | 2019-05-10 07:33 | NUR ---
HANDOFF REPORT RECEIVED FROM CHOPPING MACHINE OPERATOR RN. PT COMPLAINT OF MILD CHEST PAIN. VS ASSESSED, BP 116/72 (83), HR 80-90'S ON TELE # 4, 02 SATS 92%. PT STATES PAIN SELF RESOLVED. TELE RVIEWED AND THERE WAS NO SIGNIFICANT CHANGES AT TIME OF CHEST PAIN. MD NOTIFIED, ORDER FOR EKG. SLITTING MACHINE FEEDER CALLED AND IN ROOM FOR EKG.
--- NOTE | 2019-05-10 08:19 | NUR ---
PT RESTING IN BED. PT DENIES PAIN AT THIS TIME, DENIES CHEST PAIN. PT ON 2L NC, O2 SATS 95%, LUNG SOUNDS WITH CRACKLES IN LOWER LOBES, DENIES SOB. CMS INTACT, WITHOUT EDEMA. IV SALINE LOCKED. PT ON TELE #4, AFIB HR 80-90'S. PT ASSISTED TO CHAIR FOR BREAKFAST, SBA WITH WALKER. PT DENIES OTHER NEEDS AT THIS TIME. DISCUSSED PLAN OF CARE FOR THE DAY.
--- NOTE | 2019-05-10 11:00 | NUR ---
PT RESTING IN BED. PT DENIES NEEDS AT THIS TIME. PT CONTINUES TO DENY CHAEST PAIN.
[2019-05-10] MEDS ORDERED: DILTIAZEM 24HR180 M1 PO (12:37)
--- NOTE | 2019-05-10 12:45 | NUR ---
PLAN FOR DISCHARGE LATER THIS AFTERNOON AFTER SECOND DOSE OF CARDIZEM 30MG, DISCUSSED WITH PT. PT GOING TO CALL SISTER FOR RIDE, PHONE PROVIDED. PT DENIES OTHER NEEDS AT THIS TIME.
--- NOTE | 2019-05-10 14:34 | NUR ---
MET WITH PTSHelga CONLEY. SHE SEEMS PLEASED WITH THE CARE PT HAS RECEIVED. WILL CONTINUE TO FOLLOW
--- NOTE | 2019-05-10 15:53 | EKG ---
[facility] [address] [facility] [facility] [place] [address] Signed Atrial fibrillation Nonspecific ST and T wave abnormality Abnormal ECG When compared with ECG of 09-MAY-2019 11:37, Vent. rate has decreased BY 61 BPM Confirmed by TODD ORELLANA DO ([id number]) on 05/10/2019 3:53:15 PM Electronically Signed By: TODD ORELLANA DO 05/10/19 1553 PATIENT NAME: SUJATACOLE RAUDEL Electrocardiogram DATE OF : 45 PHYSICIAN: TODD ORELLANA DO REPORT #: [id number] REPORT IS CONFIDENTIAL AND NOT TO BE RELEASED WITHOUT AUTHORIZATION
== END 2019-05-10 15:00 | disposition home or self-care (01) ==
LOC: ED 11:16 → MS 11:18
PROVIDERS: ADMIT Student in an Organized Health Care Education/Training Program
DX: I48.91 Unspecified atrial fibrillation (principal); I13.0 Hypertensive heart and chronic kidney disease with heart failure and stage 1 through stage 4 chronic kidney disease, or unspecified chronic kidney disease; N18.9 Chronic kidney disease, unspecified; I50.33 Acute on chronic diastolic (congestive) heart failure; E83.42 Hypomagnesemia; G25.81 Restless legs syndrome; J96.11 Chronic respiratory failure with hypoxia; E03.9 Hypothyroidism, unspecified; G89.4 Chronic pain syndrome; M41.9 Scoliosis, unspecified; J98.4 Other disorders of lung; Z94.4 Liver transplant status; Z99.81 Dependence on supplemental oxygen; Z88.5 Allergy status to narcotic agent; Z79.899 Other long term (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; Z79.891 Long term (current) use of opiate analgesic
CPT/HCPCS: 36415; 71045; 80048; 80053; 83735; 83880; 84484; 85025; 85610; 93005; 93010; 96374; 96375; 99285-25; G0378; J1940; J3475

== ENCOUNTER 2019-05-19 06:16 | Emergency (ER) | payer MEDICARE, OTHER ==
[~2019-05-19] VITALS: Ht 157.5 cm; Wt 95.3 kg
--- OUTSIDE RECORDS SUMMARY | ~2019-05-19 | XMS | Clinical Summary ---
Demographics + + + | Address | [address] | | | [place] [address] | + + + | Home Phone | | + + + | Preferred Language | Unknown | + + + | Marital Status | Single | + + + | Yarsanism Affiliation | 1041 | + + + | Race | Unknown | + + + | Ethnic Group | Unknown | + + + Author + + + | Author | [facility] | | | and [place] | + + + | Organization | [facility] | | | and [place] | + + + | Address | Unknown | + + + | Phone | Unavailable | + + + Support + + +---------+ + | Name | Relationship | Address | Phone | + + +---------+ + | Annie Tipton | ECON | Unknown | | + + +---------+ + Care Team Providers + +------+ + | Care Make Ready Mechanic Name | Role | Phone | + +------+ + | Rick Osorio DO | PCP | | + +------+ + Allergies + + + + + + | Active Allergy | Reactions | Severity | Noted | Comments | | | | | Date | | + + + + + + | Codeine | Nausea And Vomiting | | 03/04/20 | | | | | | 14 | | + + + + + + Medications + + + +---------+------+------+-------+ | Medication | Sig | Dispensed | Refills | Star | End | Statu | | | | | | t | Date | s | | | | | | Date | | | + + + +---------+------+------+-------+ | furosemide (LASIX) | Take 20 mg by mouth | | 0 | | | Activ | | 20 mg tablet | Daily. | | | | | e | + + + +---------+------+------+-------+ | gabapentin | Take 600 mg by mouth | | 0 | | | Activ | | (NEURONTIN) 600 MG | 3 times daily. | | | | | e | | tablet | | | | | | | + + + +---------+------+------+-------+ | cycloSPORINE | Take 25 mg by mouth | | 0 | | | Activ | | (SANDIMMUNE) 25 mg | 3 times daily. | | | | | e | | capsule | | | | | | | + + + +---------+------+------+-------+ | fluticasone | 1 spray by Nasal | | 0 | | | Activ | | (FLONASE) 50 | route Daily. | | | | | e | | mcg/nasal spray | | | | | | | + + + +---------+------+------+-------+ | azaTHIOprine | Take 50 mg by mouth | | 0 | | | Activ | | (IMURAN) 50 mg | Daily. | | | | | e | | tablet | | | | | | | + + + +---------+------+------+-------+ | metoprolol | Take 100 mg by mouth | | 0 | | | Activ | | tartrate (LOPRESSOR) | 2 times daily. | | | | | e | | 50 mg tablet | | | | | | | + + + +---------+------+------+-------+ | Levothyroxine | Take by mouth every | | 0 | | | Activ | | Sodium 125 MCG CAPS | morning (before | | | | | e | | | breakfast). | | | | | | + + + +---------+------+------+-------+ | methadone 10 mg | Take 10 mg by mouth | | 0 | | | Activ | | tablet | 2 times daily. | | | | | e | + + + +---------+------+------+-------+ | | Take 1 tablet by | | 0 | | | Activ | | HYDROcodone-acetamin | mouth every 6 hours | | | | | e | | ophen (NORCO) 5-325 | as needed. | | | | | | | mg per tablet | | | | | | | + + + +---------+------+------+-------+ | pravastatin | Take 10 mg by mouth | | 0 | | | Activ | | (PRAVACHOL) 10 mg | nightly. | | | | | e | | tablet | | | | | | | + + + +---------+------+------+-------+ Active Problems + + + | Problem | Noted Date | + + + | Restrictive lung disease | 03/26/2014 | + + + | Kyphosis deformity of spine | 03/04/2014 | + + + | Hypoxemia | 02/20/2014 | + + + Immunizations + + + + | Name | Administration Dates | Next Due | + + + + | INFLUENZA PF 18 Y OR | 02/12/2014 | | | >,TRIVALENT | | | | RECOMBINANT | | | + + + + | PNEUMOCOCCAL | 01/29/2015 | | | POLYSACCHARIDE | | | | 23-VALENT (PPSV23) | | | + + + + Family History + + +------+ + | Medical History | Relation | Name | Comments | + + +------+ + | Stroke | Brother | | | + + +------+ + | * | Brother | | lung lung disease NOS | + + +------+ + | ADD/ADHD | Father | | | + + +------+ + | Diabetes | Father | | | + + +------+ + | Diabetes, NIDDM | Father | | | + + +------+ + | * | Mother | | after sugery for a bowel obstruction | + + +------+ + | * | Sister | | healthy | + + +------+ + | Kidney disease | Neg Hx | | | + + +------+ + + +------+ + + | Relation | Name | Status | Comments | + +------+ + + | Brother | | Alive | | + +------+ + + | Brother | | Alive | | + +------+ + + | Brother | | | | + +------+ + + | Father | | | | + +------+ + + | Father | | | | + +------+ + + | Mother | | | | + +------+ + + | Mother | | | | + +------+ + + | Sister | | Alive | | + +------+ + + | Sister | | Alive | | + +------+ + + Social History + +-------+ +--------+------+ | Tobacco Use | Types | Packs/Day | Years | Date | | | | | Used | | + +-------+ +--------+------+ | Never Smoker | | | | | + +-------+ +--------+------+ + + +---------+ + | Alcohol Use | Drinks/Week | oz/Week | Comments | + + +---------+ + | Yes | 7 Standard drinks | 5.8 | Alcoholic | | | or equivalent | | Drinks/day: beer / | | | | | night | + + +---------+ + + + + | Sex Assigned at | Date Recorded | | | | + + + | Not on file | | + + + + + + + | Job Start Date | Occupation | Industry | + + + + | Not on file | Not on file | Not on file | + + + + + + + + | Travel History | Travel Start | Travel End | + + + + + + | No recent travel history available. | + + Last Filed Vital Signs + + + + + | Vital Sign | Reading | Time Taken | Comments | + + + + + | Blood Pressure | 124/76 | 05/10/2014 1:58 PM | | | | | PST | | + + + + + | Pulse | 60 | 05/10/2014 1:58 PM | | | | | PST | | + + + + + | Temperature | 36.4 C (97.6 F) | 03/04/2014 2:55 PM | | | | | PDT | | + + + + + | Respiratory Rate | 16 | 01/02/2014 11:23 AM | | | | | PDT | | + + + + + | Oxygen Saturation | 96% | 05/10/2014 1:58 PM | On 4LPM | | | | PST | | + + + + + | Inhaled Oxygen | - | - | | | Concentration | | | | + + + + + | Weight | 97.8 kg (215 lb 9.6 | 05/10/2014 1:58 PM | | | | oz) | PST | | + + + + + | Height | 160 cm (5' 3") | 05/10/2014 1:58 PM | | | | | PST | | + + + + + | Body Mass Index | 38.19 | 05/10/2014 1:58 PM | | | | | PST | | + + + + + Plan of Treatment + + + + + | Health Maintenance | Due Date | Last Done | Comments | + + + + + | Vaccine: | | | | | Dtap/Tdap/Td (1 - | 7 | | | | Tdap) | | | | + + + + + | Vaccine: Zoster (1 | | | | | of 2) | 6 | | | + + + + + | Breast Cancer | | | | | Screening | 1 | | | + + + + + | Vaccine: | | 01/29/2015 | | | Pneumococcal 65+ (2 | 6 | | | | of 2 - PCV13) | | | | + + + + + | Vaccine: Influenza | | 02/12/2014 | | | (#1) | 9 | | | + + + + + Results Not on filefrom Last 3 Months Insurance + +--------+ +--------+-------+---------+--------+ | Payer | Benefi | Subscriber | Effect | Phone | Address | Type | | | t Plan | ID | kj | | | | | | / | | Dates | | | | | | Group | | | | | | + +--------+ +--------+-------+---------+--------+ | [employer] | [employer] | [id number] | 05/23/19 | | | Medica | | | HEALTH | | 14-Pre | | | re | | | MDCR | | sent | | | | + +--------+ +--------+-------+---------+--------+ + +--------+ +--------+ + + | Guarantor Name | Accoun | Relation to | Date | Phone | Billing Address | | | t Type | Patient | of | | | | | | | | | | + +--------+ +--------+ + + | Opal Petty | Person | Self [birth year] | [address] | | [place] | al/Fam | | 1946 | [phone] | | | [place] | | | [address] (Home) | [place] | | | | | | | [phone] | + +--------+ +--------+ + + Advance Directives + + + + + | Type | Date Recorded | Patient | Explanation | | | | Emt Driver | | + + + + + | Power of | | | | | Industrial Gas Fitter | | | | + + + + + | Advance | 05/10/2014 | | | | Directive | 12:33 PM | | | + + + + +
--- OUTSIDE RECORDS SUMMARY | ~2019-05-19 | XMS | Encounter Summary ---
Demographics + + + | Address | [address] | | | [place] [address] | + + + | Home Phone | | + + + | Preferred Language | Unknown | + + + | Marital Status | Single | + + + | Jewish Affiliation | [id number] | + + + [...] Team Providers + +------+ + | Care It Coordinator Name | Role | Phone | + +------+ + | Yovani Santana MD | PCP | | + +------+ + Encounter Details +--------+ + + + + | Date | Type | Department | Care Team | Description | +--------+ + + + + | 01/14/ | Hospital | [facility] | Jennifer Hartman MD | Near syncope; | | 2015 - | Encounter | [facility] | [address] | Elevated troponin; | | | | CARE FLOOR [address] | [place] [address] | Non-STEMI (non-ST | | 01/19/ | | [address] | [phone] | elevated myocardial | | 2015 | | [place], [place] | | infarction) ([facility]); | | | | [address] | | CKD (chronic kidney | | | | [phone] | | disease), | | | | | | unspecified stage; | | | | | | Leukocytosis; ZULAY | | | | | | (acute kidney | | | | | | injury) ([facility]); Liver | | | | | | replaced by | | | | | | transplant ([facility]) | +--------+ + + + + Social [...] + + documented as of this encounter Discharge Summaries Emma Hardy MD - 01/19/2015 7:53 AM PDT Discharge Summaries by Emma Hardy MD at 01/19/15 0753 Author: Emma Hardy MD Service: (none) Author Type: Physician Filed: 01/19/15 1411 Date of Service: 01/19/15 0753 Status: Signed Machine Fur Cleaner: Emma Hardy MD (Physician) Related Notes: Original Note by Emma Hardy MD (Physician) filed at 01/19/15 0800 [facility] Service: Hospitalist Physician Discharge Summary Patient ID: Cole Ernst 1945 69 y.o. Admit date: 01/14/2015 Discharge date: 01/19/2015 Admitting Physician: Jennifer Hartman MD Discharge Physician: Emma Hardy MD Consultants: Treatment Team: Consulting Physician: Juju Riggins MD Consulting Physician: Nupur Tadeo MD Consulting Physician: Juan Ramey MD Admitting Provider: Jennifer Hartman MD Primary Discharge Diagnoses: Acute renal failure. Resolved Secondary Discharge Diagnoses: Liver replaced by transplant (HCC) Essential hypertension, benign Hypothyroidism CKD (chronic kidney disease), stage III Immunosuppression (HCC) Macrocytosis without anemia Other severe protein-calorie malnutrition (HCC) Elevated troponin. 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 The patient was taken off methadone about 3 weeks prior to admission. Pre vious creatinine was 1.38 and the patient was presented at [facility] in [place] , was found to have elevated troponin of 0.55 and noted to have creatinine of 2.4 and leukoc ytosis and was transferred for mcz-VP-erxaqdkdb SC. HOSPITAL COURSE The patient was admitted with bht-AK-kdciyonwq SC. Cardiology consult was obtained. She was started on aspirin. The patient also was in acute renal failure and nephrology was consulte d. The patient had echocardiogram which showed no wall motion abnormalities. She was restart ed on her beta jann. The patient also had a nuclear stress test which did not show any is chemia. Most probably this was demand ischemia and elevated troponin possibly contributed to acute renal failure. She will be discharged home on beta jann, aspirin and lipid-lowerin g therapy. The patient also has dvabz-oa-ywqjqvn kidney disease, stage III. Acute renal fail ure is completely resolved and creatinine is normal. The patient also had abdominal pain wit h leukocytosis and was initially started on Rocephin for possible UTI. Urine cultures were n egative. Subsequently, she underwent colonoscopy by Dr. Ramey which showed diverticulosis. Bi opsy has been done, the results of which are pending. Since the patient was immunocompromise d, infectious disease consult was also obtained. CMV DNA was negative. All antibiotics were discontinued. Stool was negative for Clostridium difficile. Leukocytosis has resolved. She r emains afebrile. The patient is to follow up with biopsy results with Dr. Ramey. The patient also was noted to have severe protein calorie malnutrition and body component engineer was consulted. Her blood pressures remain stable. The patient is status post liver transplant. LFT within latrice l limits. The patient also had mild hypokalemia and hypomagnesemia which was replaced prior to discharge. The patient also has hypothyroidism. Will be continued on Synthroid and repeat TSH and free T4 in 2 weeks. The plan has been explained in detail with the patient. All que stions were answered. All data was reviewed with her. Chest pain was chronically on 2 L home oxygen on which she will be discharged. Past Medical History: Past Medical History Diagnosis Date Stroke (HCC) Hyperlipidemia Hypertension Past Surgical History Procedure Laterality Date Liver transplant 192 Gallbladder surgery 1992 Splenectomy Discharged Condition: Stable for discharge as stated above. Significant Diagnostic Studies: Ct Abdomen Pelvis Without Contrast 01/14/2015 1. Irregular or infiltrative segment of wall thickening of a short segment of the the proximal large bowel near the hepatic flexure. No obstruction. Given the patient's age-would correlate with colonoscopy. No extraluminal lesion, does not seem masslike-but mal ignancy cannot be excluded. A short segment colitis or infiltration is a differential consid eration 2. Extensive diverticulosis of the sigmoid bowel, but no high-grade inflammatory ch rodriguez or extraluminal fluid collection Electronically signed by Gary Wong MD on 10:11 PM Nm Myocardial Perfusion Spect (stress And Rest) 01/18/2015 1. Normal myocardial perfusion study. 2. No evidence of pharmacologic stress induced ischemia or infarct. 3. Mild decreased wall motion of the inferior septum. 4. Left ventricular ejection fraction is calculated at 61%. Xr Chest 1 View 01/14/2015 1. Hypoinflated chest, but no evident infiltrate Echo Cardiac Adult Complete 01/15/2015 1. Indication for study and thus clinical question is unknown. Minor irregulari ties as below. Discharge Vitals: Filed Vitals: 01/18/15 1922 01/18/15 2324 01/19/15 0350 01/19/15 0742 BP: 123/83 133/86 112/65 120/65 Pulse: 75 70 65 60 Temp: 98.3 F (36.8 C) 98.4 F (36.9 C) 98.6 F (37 C) 97.9 F (36.6 C) TempSrc: Oral Oral Oral Oral Resp: 18 16 18 18 Height: Weight: 87.6 kg (193 lb 2 oz) SpO2: 99% 98% 96% 99% Discharge Exam: General: Well nourished. Psych: Alert and oriented x 3. Calm, cooperative. Cardiovascular: Regular rate and rhythm, no murmurs, no thrills. Normal PMI. Respiratory: Clear to auscultation, no wheezing or crackles, breathing non labored. Bilate rally decreased breath sounds Gastrointestinal: Soft, non-tender, non-distended, positive bowel sounds. No HSM. Musculoskeletal: No edema in bilateral lower extremities. No joint swelling. Skin: Warm and dry, no rashes. Neck: No JVD, Trachea midline. Neurological: Non focal. Motor grossly intact. LABS: Recent Labs Lab 01/18/1532401/17/15 0353 01/16/15 032 WBC 8.07 10.74 10.55 RBC 3.41* 3.40* 3.28* HGB 11.9 12.0 11.6 HCT 35.7 35.8 34.5 MCV 104.6* 105.3* 105.1* MCH 34.9* 35.3* 35.3* MCHC 33.3 33.6 33.5 RDW 50.8 50.8 50.8 PLT 170 149* 144* MPV 12.6 13.0 13.0 DIFFTYPE AUTOMATED AUTOMATED AUTOMATED Recent Labs Lab 01/19/15 0330 01/18/1532401/17/15 2226 01/17/15 0353 01/16/15 032 NA 136 136 -- -- 138 -- 138 K 3.4* 3.8 3.4* < > 3.2* < > 3.0* CL 101 101 -- -- 100 -- 104 CO2 28 27 -- -- 28 -- 22* BUN 8 7* -- -- 8 -- 13 CREATININE 0.96 0.79 -- -- 0.94 -- 1.01* PROT -- 7.2 -- -- 7.8 -- 7.1 BILITOT -- 0.5 -- -- 0.4 -- 0.4 ALT -- 25 -- -- 24 -- 19 AST -- 43 -- -- 34 -- 26 GLUF 107* 118* -- -- 114* -- 82 < > = values in this interval not displayed. Recent Labs Lab 01/15/15 0632 01/15/15 0051 01/14/15 1548 CKTOTAL -- -- 151 TROPONINI 0.484* 0.509* 0.555* CKMBINDEX -- -- 2.6 Recent Labs Lab 01/19/15 0330 01/18/15 0325 01/17/15 2226 PHOS 2.3 2.6 3.2 Recent Labs Lab 01/19/15 0330 01/18/15 0325 01/17/15 2226 MG 1.5* 1.8 1.4* Invalid input(s): ABG Disposition: detention facility Follow up: Ki De Jesus DO [address] [facility] [address] [place] [address] Schedule an appointment as soon as possible for a visit in 4 days Juan Ramey MD [address] [facility] [address] [facility] [address] Schedule an appointment as soon as possible for a visit in 1 week Follow up biopsy results Juju Riggins MD [address] [place] [address] Schedule an appointment as soon as possible for a visit in 2 weeks Medication List START taking these medications aspirin EC 81 MG EC tablet QTY: 30 tablet Refills: 0 Take 1 tablet by mouth daily with breakfast. HYDROcodone-acetaminophen 10-325 MG per tablet QTY: 30 tablet Refills: 0 Commonly known as: NORCO Take 1 tablet by mouth every 4 (four) hours as needed. Replaces: HYDROcodone-acetaminophen 5-325 MG per tablet multivitamin & minerals w iron/FA 27-0.8 MG Tabs tablet QTY: 30 tablet Refills: 0 Take 1 tablet by mouth daily. CHANGE how you take these medications gabapentin 400 MG capsule QTY: 60 capsule Refills: 0 Commonly known as: NEURONTIN Take 1 capsule by mouth 2 (two) times daily. What changed: when to take this CONTINUE taking these medications azaTHIOprine 50 MG tablet Refills: 0 Commonly known as: IMURAN Cholecalciferol 2000 UNITS Caps Refills: 0 cyanocobalamin 1000 MCG tablet Refills: 0 Commonly known as: VITAMIN B-12 cycloSPORINE 25 MG capsule Refills: 0 Commonly known as: sandIMMUNE fluticasone 50 MCG/ACT nasal Refills: 0 Commonly known as: FLONASE levothyroxine 125 MCG tablet Refills: 0 Commonly known as: SYNTHROID metoprolol 100 MG tablet Refills: 0 Commonly known as: LOPRESSOR pravastatin 10 MG tablet Refills: 0 Commonly known as: PRAVACHOL STOP taking these medications HYDROcodone-acetaminophen 5-325 MG per tablet Commonly known as: NORCO Replaced by: HYDROcodone-acetaminophen 10-325 MG per tablet Where to Get Your Medications These are the prescriptions that you need to garbage pick up worker. You may get the following medications from any pharmacy - aspirin EC 81 MG EC tablet - gabapentin 400 MG capsule - HYDROcodone-acetaminophen 10-325 MG per tablet - multivitamin & minerals w iron/FA 27-0.8 MG Tabs tablet Emma Hardy MD 01/19/2015 7:56 AM Discharge took 45 minutes, to include final examination, discussion of admission, and prep aration of prescriptions, instructions for ongoing care, follow up and dictation of summary. This entry has been created using [employer] Speech Recognition software and [employer]. The entry has been reviewed and there may still exist sound alike word errors. documented in th is encounter Medications at Time of Discharge + + + +---------+--------+ + | Medication | Sig | Dispensed | Refills | Start | End Date | | | | | | Date | | + + + +---------+--------+ + | azaTHIOprine | Take 50 mg by mouth | | 0 | | | | (IMURAN) 50 mg | Daily. | | | | | | tablet | | | | | | + + + +---------+--------+ + | cycloSPORINE | Take 25 mg by mouth | | 0 | | | | (SANDIMMUNE) 25 mg | 3 times daily. | | | | | | capsule | | | | | | + + + +---------+--------+ + | fluticasone | 1 spray by Nasal | | 0 | | | | (FLONASE) 50 | route Daily. | | | | | | mcg/nasal spray | | | | | | + + + +---------+--------+ + | furosemide (LASIX) | Take 20 mg by mouth | | 0 | | | | 20 mg tablet | Daily. | | | | | + + + +---------+--------+ + | gabapentin | Take 600 mg by mouth | | 0 | | | | (NEURONTIN) 600 MG | 3 times daily. | | | | | | tablet | | | | | | + + + +---------+--------+ + | | Take 1 tablet by | | 0 | | | | HYDROcodone-acetamin | mouth every 6 hours | | | | | | ophen (NORCO) 5-325 | as needed. | | | | | | mg per tablet | | | | | | + + + +---------+--------+ + | Levothyroxine | Take by mouth every | | 0 | | | | Sodium 125 MCG CAPS | morning (before | | | | | | | breakfast). | | | | | + + + +---------+--------+ + | methadone 10 mg | Take 10 mg by mouth | | 0 | | | | tablet | 2 times daily. | | | | | + + + +---------+--------+ + | metoprolol | Take 100 mg by mouth | | 0 | | | | tartrate (LOPRESSOR) | 2 times daily. | | | | | | 50 mg tablet | | | | | | + + + +---------+--------+ + | pravastatin | Take 10 mg by mouth | | 0 | | | | (PRAVACHOL) 10 mg | nightly. | | | | | | tablet | | | | | | + + + +---------+--------+ + documented as of this encounter Progress Notes Conversion Transaction, Provider Unknown - 01/19/2015 1:00 PM PDTFormatting of this note m ight be different from the original. Nurse Progress Note by Shaista Lin RN at 01/19/15 1300 Author: Shaista Lin RN Service: (none) Author Type: Registered Nurse Filed: 01/19/15 1303 Date of Service: 01/19/15 1300 Status: Signed Machine Fur Cleaner: Shaista Lin RN (Registered Nurse) Pt discharged via wheel chair on 2 L of oxygen. To [facility] in [place]. Pt alert and o [email or web address]. onver alessandro Transaction, Provider Unknown - 01/19/2015 8:20 AM PDT Case Management by PHUONG Roman at 01/19/15819 Author: PHUONG Roman Service: (none) Author Type: Marriage Counselor Filed: 01/19/15819 Date of Service: 01/19/15819 Status: Signed Machine Fur Cleaner: PHUONG Roman (Marriage Counselor) Disposition: [facility] Transportation: facility van All orders, signed AVS, and prescriptions have been faxed- yes All DC paperwork completed Patient and family in agreement with discharge plan Medicare important message (Given or N/A): PHUONG Roman onver alessandro Transaction, Provider Unknown - 01/19/2015 4:13 AM PDT Nurse Progress Note by Yady Singh RN at 01/19/15412 Author: Yady Singh RN Service: (none) Author Type: Registered Nurse Filed: 01/19/15 0625 Date of Service: 01/19/15412 Status: Signed Machine Fur Cleaner: Yady Singh RN (Registered Nurse) Patient resting quietly all night. Medicated once for all over general pain. No further com plaints. VSS. onver alessandro Transaction, Provider Unknown - 01/18/2015 3:21 PM PDT Case Management by PHUONG Roman at 01/18/15 1521 Author: PHUONG Roman Service: (none) Author Type: Marriage Counselor Filed: 01/18/15 1521 Date of Service: 01/18/15 1521 Status: Signed Machine Fur Cleaner: PHUONG Roman (Marriage Counselor) spoke w/ Will at [facility] who reports they can accept and transport pt tomorrow AM. PHUONG Roman osangela Kirk MD - 01/18/2015 3:10 PM PDT Progress Notes by Rosangela Steinberg MD at 01/18/15 1510 Author: Rosangela Steinberg MD Service: Infectious Disease Author Type: Physician Filed: 01/18/15 3050 Date of Service: 01/18/15 1510 Status: Signed Machine Fur Cleaner: Rosangela Steinberg MD (Physician) [facility] Service: Infectious Disease Progress Note Hospital Day: LOS: 4 days Post-Op Day: 1 Day Post-Op SUBJECTIVE Patient Summary: From Dr. Tadeo's prior note: The patient is a 69 y.o. female with significant past medical history of liver transplant, renal insufficiency, dyslipidemia, fol lows with Dr. Oliva, on methadone for chronic back pain-abruptly stopped about 3 weeks ago, presented to emergency room yesterday with generalized weakness, vomiting and diarrhea. Had initially presented to [facility] in [place] with similar complaints. Was foun d to have an elevated troponin. She was mainly admitted as a non-STEMI. Found to have a leuk ocytosis. Since patient is immunocompromised, she was started empirically on IV ceftriaxone. Chest x-ray showed no infiltrate. Patient denies any recent fevers or chills. She went to [facility] mainly becau se of syncope. Prior to that felt lightheaded. Complaints of nausea vomiting and some diarrh ea for the last 2-3 weeks. Has never had a colonoscopy done. No significant abdominal pain. Denies any significant loss of appetite or loss of weight. No recent antibiotics for UTI, bronchitis or any other infection. Last episode of UTI was a bout 4 months ago. No recent travel. No pets at home. Lives by herself. Denies any recent eating out, eating o ld foods and canned food. No history of exposure to anyone who is sick Events Overnight: Colonoscopy done yesterday with finding of normal colonic mucosa, m oderate descending colon and sigmoid diverticulosis, small internal hemorrhoids. Biopsy is i n process. Patient has been afebrile. No chills or sweats. Denies abdominal pain. Still with loose stools. Scheduled Medications azaTHIOprine 50 mg Oral Daily cholecalciferol 2,000 Units Oral Daily cyanocobalamin 1,000 mcg Oral Daily cycloSPORINE 75 mg Oral BID fluticasone 1 spray Each Nare Daily folic acid (FOLVITE) IVPB 1 mg Intravenous Q24H Or multivitamin & minerals w iron/FA 1 tablet Oral Q24H gabapentin 400 mg Oral BID heparin (porcine) 5000 unit/0.5mL 5,000 Units Subcutaneous 2 times per day levothyroxine 125 mcg Oral QAM AC metoprolol 100 mg Oral BID pneumococcal 23-valent vaccine 0.5 mL Intramuscular Once Immunization thiamine (VITAMIN B1) IVPB 100 mg Intravenous Q24H Continuous Infusions PRN Medications acetaminophen OR acetaminophen, diazepam, diazepam OR diazepam, hydrALAZINE, HYDROc odone-acetaminophen, HYDROcodone-acetaminophen, magnesium sulfate OR magnesium sulfate * *OR magnesium sulfate, ondansetron OR ondansetron, phosphorus OR sodium phosphate IVPB 20 mmol OR sodium phosphate IVPB 45 mmol, polyethylene glycol potassium chloride OR potassium chloride OR potassium chloride OR potassium chl oride OR potassium chloride OR potassium chloride OBJECTIVE Vital Signs: BP 132/91 mmHg | Pulse 78 | Temp(Src) 98.3 F (36.8 C) (Oral) | Resp 18 | Ht 1.6 m (5' 3 ") | Wt 88.6 kg (195 lb 5.2 oz) | BMI 34.61 kg/m2 | SpO2 98% | ? No Temp: [97.3 F (36.3 C)-98.4 F (36.9 C)] 98.3 F (36.8 C) (01/18 1125) BP: (118-172)/(68-96) 132/91 mmHg (01/18 1127) Heart Rate: [62-78] 78 (01/18 112) Resp: [14-20] 18 (01/18 112) SpO2: [96 %-99 %] 98 % (01/18 1125) Weight: [85.3 kg (188 lb 0.8 oz)-88.6 kg (195 lb 5.2 oz)] 88.6 kg (195 lb 5.2 oz) (01/18 0 308) Physical Exam Vital signs have been reviewed Gen.: Pleasant female, sitting comfortably in her chair, not in distress HEENT: Normocephalic. Sclerae are anicteric. No oral thrush or ulcers. Lungs: No adventitious breath sounds Cardiovascular: Regular rate and rhythm, no murmur or rubs Abdomen: No distention, positive bowel sounds, soft, no tenderness Skin: No diffuse rash Neurologic: Oriented 3, no focal weakness Psychiatric: cooperative for the clinical encounter DATA CBC: Lab Results Component Value Date WBC 8.07 01/18/2015 RBC 3.41* 01/18/2015 HGB 11.9 01/18/2015 HCT 35.7 01/18/2015 MCV 104.6* 01/18/2015 MCH 34.9* 01/18/2015 MCHC 33.3 01/18/2015 RDW 50.8 01/18/2015 PLT 170 01/18/2015 MPV 12.6 01/18/2015 DIFFTYPE AUTOMATED 01/18/2015 WBC: Lab Results Component Value Date WBC 8.07 01/18/2015 NEUTABSMAN 9.39* 01/14/2015 NEUTROABS 3.26 01/18/2015 NEUTROMAN 58 01/14/2015 LYMPHOABS 5.18* 01/14/2015 LYMPHOMAN 32 01/14/2015 LYMPHSABS 3.21 01/18/2015 LYMPHOPCT 39.78 01/18/2015 MONOABSMAN 1.46* 01/14/2015 MONOMAN 9 01/14/2015 MONOPCT 12.51 01/18/2015 EOSINOABS 0.16 01/14/2015 EOSINOMAN 1 01/14/2015 EOSABS 0.52* 01/18/2015 EOSPCT 6.45 01/18/2015 BASOSABS 0.08 01/18/2015 BASOPCT 0.95 01/18/2015 COMDIFF 1+ GIANT PLT 01/17/2015 CMP: Lab Results Component Value Date NA 136 01/18/2015 K 3.8 01/18/2015 CL 101 01/18/2015 CO2 27 01/18/2015 ANIONGAP 12 01/18/2015 GLUF 118* 01/18/2015 BUN 7* 01/18/2015 CREATININE 0.79 01/18/2015 BCR 9 01/18/2015 CA 7.5* 01/18/2015 CA 9.1 11/15/2014 PROT 7.2 01/18/2015 ALB 3.1* 01/18/2015 GLOB 4.1 01/18/2015 BILITOT 0.5 01/18/2015 ALP 76 01/18/2015 AST 43 01/18/2015 ALT 25 01/18/2015 EGFR >60 01/18/2015 CMV IgG positive, CMV IgM negative CMV DNA PCR not detected Microbiology data: 01/15 C. difficile PCR negative 01/16 Giardia antigen negative, fecal WBCs negative; stool culture with negative Shiga toxin types 1 and 2, no reported growth so far 01/15 blood cultures with no growth to date 01/15 urine culture negative 01/14 MRSA nasal PCR negative Radiology data: Impression 1. Irregular or infiltrative segment of wall thickening of a short segment of the the proxi mal large bowel near the hepatic flexure. No obstruction. Given the patient's age-would correlate with colonoscopy. No extraluminal lesion, does not seem masslike-but malignancy cannot be excluded. A short segment colitis or infiltration is a differential consideration 2. Extensive diverticulosis of the sigmoid bowel, but no high-grade inflammatory change or extraluminal fluid collection abdomen pelvis without contrast [[id number]] Impression 1. Hypoinflated chest, but no evident infiltrate chest 1 view [[id number]] Impression 1. Indication for study and thus clinical question is unknown. Minor irregularities as belo w. Echo cardiac adult complete [ECHO50] PROBLEM LIST Principal Problem: NSTEMI (non-ST elevated myocardial infarction) (HCC) Active Problems: Liver replaced by transplant (HCC) Essential hypertension, benign Hypothyroidism CKD (chronic kidney disease), stage III Immunosuppression (HCC) Macrocytosis without anemia Other severe protein-calorie malnutrition (HCC) ASSESSMENT & PLAN Leukocytosis -Resolved; patient has been afebrile -Patient had diarrhea but C. difficile PCR came back negative. -All cultures are negative so far. Pro-calcitonin has been low -Abdominal CT scan shows nonspecific irregularity at the bowel wall near the hepatic flexu re. There is diverticulosis but no evidence of diverticulitis. Appreciate Dr. Ramey's input; colonoscopy shows normal mucosa. Biopsy pending -Patient is immunocompromised as she had a liver transplant and is on immunosuppressive me dications. Will monitor patient off ceftriaxone which could also cause antibiotic-associated diarrhea. Continue contact enteric precautions -No active or recent CMV disease renal insufficiency -GFR at [address] Hardy Code Status: Full Code ROSANGELA STEINBERG MD 01/18/2015 ade Hardy MD - 01/18/2015 7:49 AM PDTFormatting of this note might be different from the origin al. Progress Notes by Emma Hardy MD at 01/18/1549 Author: Emma Hardy MD Service: (none) Author Type: Physician Filed: 01/18/15 1445 Date of Service: 01/18/15748 Status: Signed Machine Fur Cleaner: Emma Hardy MD (Physician) [facility] Service: Hospitalist Progress Note Hospital Day: LOS: 4 days SUBJECTIVE Patient Summary: 69-year-old female with history of liver transplant secondary to elsy dang biliary cirrhosis on immunosuppression, chronic pain, chronic kidney disease stage III , on home oxygen at 2 L admitted with the acute renal failure and elevated troponin. Cardio logy consult was obtained. CT scan of the abdomen showed infiltrative segment of the large bowel near the hepatic flexure. GI consult was obtained. Patient underwent colonoscopy whi ch showed diverticulosis. Biopsy results are pending. Infectious disease was consulted and patient was continued on Rocephin. Patient scheduled for nuclear stress test. Events Overnight: Patient states that she feels well. She denies any chest pain or s hortness of breath. Scheduled Medications azaTHIOprine 50 mg Oral Daily cefTRIAXone 1 g Intravenous Q24H cholecalciferol 2,000 Units Oral Daily cyanocobalamin 1,000 mcg Oral Daily cycloSPORINE 75 mg Oral BID fluticasone 1 spray Each Nare Daily folic acid (FOLVITE) IVPB 1 mg Intravenous Q24H Or multivitamin & minerals w iron/FA 1 tablet Oral Q24H gabapentin 400 mg Oral BID heparin (porcine) 5000 unit/0.5mL 5,000 Units Subcutaneous 2 times per day levothyroxine 125 mcg Oral QAM AC metoprolol 100 mg Oral BID pneumococcal 23-valent vaccine 0.5 mL Intramuscular Once Immunization propofol thiamine (VITAMIN B1) IVPB 100 mg Intravenous Q24H Continuous Infusions PRN Medications acetaminophen OR acetaminophen, diazepam, diazepam OR diazepam, hydrALAZINE, HYDROc odone-acetaminophen, HYDROcodone-acetaminophen, magnesium sulfate OR magnesium sulfate * *OR magnesium sulfate, ondansetron OR ondansetron, phosphorus OR sodium phosphate IVPB 20 mmol OR sodium phosphate IVPB 45 mmol, polyethylene glycol potassium chloride OR potassium chloride OR potassium chloride OR potassium chl oride OR potassium chloride OR potassium chloride OBJECTIVE Vital Signs: BP 148/79 mmHg | Pulse 62 | Temp(Src) 97.5 F (36.4 C) (Oral) | Resp 20 | Ht 1.6 m (5' 3 ") | Wt 88.6 kg (195 lb 5.2 oz) | BMI 34.61 kg/m2 | SpO2 98% | ? No Patient Vitals for the past 24 hrs: BP Temp Temp src Pulse Resp SpO2 Weight 01/18/15 0345 148/79 mmHg - - 62 - - - 01/18/15 0308 148/78 mmHg 97.5 F (36.4 C) Oral 64 20 98 % 88.6 kg (195 lb 5.2 oz) 01/18/15 0145 129/70 mmHg - - 62 - - - 01/18/15 0045 145/76 mmHg - - 62 - - - 01/17/15 2345 145/73 mmHg - - 62 - 96 % - 01/17/15 2331 118/70 mmHg 98.2 F (36.8 C) Oral 62 20 96 % - 01/17/15 2245 143/89 mmHg - - 74 - 98 % - 01/17/15 2215 148/86 mmHg - - 74 - 98 % - 01/17/15 2200 172/88 mmHg - - 70 - 96 % - 01/17/152143 - - - - - - 85.3 kg (188 lb 0.8 oz) 01/17/152141 158/88 mmHg 98.4 F (36.9 C) Oral 65 14 96 % - 01/17/152117 122/72 mmHg 97.3 F (36.3 C) Temporal 70 16 98 % - 01/17/152114 123/68 mmHg 97.4 F (36.3 C) Temporal 70 16 99 % - 01/17/151940 152/85 mmHg 98.2 F (36.8 C) Oral 70 20 99 % - 01/17/15 1534 155/86 mmHg 97.9 F (36.6 C) Oral 66 18 98 % - 01/17/15 1247 (!) 155/96 mmHg - - - - - - 01/17/15 1245 (!) 175/93 mmHg 98.3 F (36.8 C) Oral 64 18 98 % - 01/17/15 0814 (!) 155/95 mmHg - - - - - - 01/17/15 0812 (!) 169/98 mmHg 98.1 F (36.7 C) Oral 78 18 98 % - Intake/Output Summary (Last 24 hours) at 01/18/15 0754 Last data filed at 01/18/15 0454 Gross per 24 hour Intake 2243 ml Output 1100 ml Net 1143 ml Physical Exam: Constitutional: Alert and oriented to person, place, and time. Appears well-developed and w ell-nourished. HEENT: Neck supple, no JVD, non icteric sclera. Cardiovascular: Normal rate, regular rhythm, normal heart sounds with S1 and S2, Exam re veals no gallop and no friction rub. No murmur heard. No S3, No S4 Pulmonary/Chest: Effort normal and breath sounds are decreased bilaterally. Bibasilar rale s present Abdominal: Soft. Bowel sounds are normal. exhibits no distension and no mass. There is no tenderness. There is no rebound and no guarding. Obese. Extremeties/Musculoskeletal: Normal range of motion.exhibits no tenderness. exhibits no ed keshav. Neurological: Alert and oriented to person, place, and time. Skin: Skin is warm and dry. Psychiatric: Has a normal mood and affect. DATA Recent Labs Lab 01/18/15 0325 01/17/15 0353 01/16/15 0321 WBC 8.07 10.74 10.55 RBC 3.41* 3.40* 3.28* HGB 11.9 12.0 11.6 HCT 35.7 35.8 34.5 MCV 104.6* 105.3* 105.1* MCH 34.9* 35.3* 35.3* MCHC 33.3 33.6 33.5 RDW 50.8 50.8 50.8 PLT 170 149* 144* MPV 12.6 13.0 13.0 DIFFTYPE AUTOMATED AUTOMATED AUTOMATED Recent Labs Lab 01/18/15 0325 01/17/15 2226 01/17/15 1413 01/17/15 0353 01/16/15 0321 NA 136 -- -- 138 -- 138 K 3.8 3.4* 3.6 3.2* < > 3.0* CL 101 -- -- 100 -- 104 CO2 27 -- -- 28 -- 22* BUN 7* -- -- 8 -- 13 CREATININE 0.79 -- -- 0.94 -- 1.01* PROT 7.2 -- -- 7.8 -- 7.1 BILITOT 0.5 -- -- 0.4 -- 0.4 ALT 25 -- -- 24 -- 19 AST 43 -- -- 34 -- 26 GLUF 118* -- -- 114* -- 82 < > = values in this interval not displayed. Recent Labs Lab 01/15/15 0632 01/15/15 0051 01/14/15 1548 CKTOTAL -- -- 151 TROPONINI 0.484* 0.509* 0.555* CKMBINDEX -- -- 2.6 Recent Labs Lab 01/18/15 0325 01/17/156 01/17/15 1413 PHOS 2.6 3.2 2.1* Recent Labs Lab 01/18/155 01/17/15 22201/17/15 1413 MG 1.8 1.4* 1.2* Invalid input(s): ABG No results for input(s): CALCIUM in the last 168 hours. Recent Labs Lab 01/14/15 1548 APTT [address] Ab[address]en Pelvis Without Contrast 01/14/2015 1. Irregular or infiltrative segment of wall thickening of a short segment of the the proximal large bowel near the hepatic flexure. No obstruction. Given the patient's age-would correlate with colonoscopy. No extraluminal lesion, does not seem masslike-but mal ignancy cannot be excluded. A short segment colitis or infiltration is a differential consid eration 2. Extensive diverticulosis of the sigmoid bowel, but no high-grade inflammatory ch rodriguez or extraluminal fluid collection Electronically signed by Gary Wong MD on 10:11 PM Xr Chest 1 View 01/14/2015 1. Hypoinflated chest, but no evident infiltrate Echo Cardiac Adult Complete 01/15/2015 1. Indication for study and thus clinical question is unknown. Minor irregulari ties as below. PROBLEM LIST Principal Problem: NSTEMI (non-ST elevated myocardial infarction) (HCC) Active Problems: Liver replaced by transplant (HCC) Essential hypertension, benign Hypothyroidism CKD (chronic kidney disease), stage III Immunosuppression (HCC) Macrocytosis without anemia Other severe protein-calorie malnutrition (HCC) ASSESSMENT & PLAN 1. Non-ST elevation SC. Possible demand ischemia. Will schedule for nuclear stress test p er Dr. Riggins's recommendations. Echocardiogram does not show any wall motion abnormalities . Ejection fraction 65-70%. Will continue metoprolol . 2. Hypertension. Blood pressure is controlled on metoprolol. Will continue hydralazine w hen necessary 3. Status post liver transplant. We will continue Imuran and cyclosporine. LFTs are wit hin normal limits 4. DVT prophylaxis will continue heparin 5. Hypothyroidism. Continue Synthroid repeat TSH and free T4 in 2 weeks 6. Acute renal failure. has resolved. Will stop IV fluids 7. Infiltrative short segment with the proximal large bowel near the hepatic flexure. Sta tus post colonoscopy. Biopsy results are pending .CMV DNA is negative . Management per inf ectious diseases. Leukocytosis has resolved. We will stop Rocephin discussed with Dr. Vini schrader 8. Deconditioning Continue physical therapy and assisted facility placement versus home PT 9. Chronic pain syndrome. Will continue hydrocodone when necessary 10. Severe protein calorie malnutrition. Dietitian consulted 11. History of alcohol use. Will continue thiamine, B12 and folate The plan has explained in detail to the patient , all questions were answered.All data was reviewed. Disposition: Pending course Code Status: Full Code Emma Hardy MD 01/18/2015 7:54 AM This entry has been created using [employer] Speech Recognition software and [employer]. The entry has been reviewed and there may still exist sound alike word errors. onversion Trans action, Provider Unknown - 01/18/2015 5:16 AM PDT Nurse Progress Note by Yady Singh RN at 01/18/15515 Author: Yady Singh RN Service: (none) Author Type: Registered Nurse Filed: 01/18/152104 Date of Service: 01/18/15515 Status: Signed Machine Fur Cleaner: Yady Singh RN (Registered Nurse) Pt taken to endoscopy at 2030 01/17/2015 for colonoscopy and returned at 2141. Pt SBP's 140 's overnight, all other vitals stable. Pt reports pain 5/10, medicated with norco 10/325 x2. 01/18/2015 0700 ose Maria Black MD - 01/17/2015 4:29 PM PDTFormatting of this note might be different from th rosalinda original. Progress Notes by Jose Maria Espinal MD at 01/17/15 1629 Author: Jose Maria Espinal MD Service: Hospitalist Author Type: Physician Filed: 01/18/15 1631 Date of Service: 01/17/15 162 Status: Signed Machine Fur Cleaner: Jose Maria Espinal MD (Physician) Related Notes: Original Note by Jose Maria Espinal MD (Physician) filed at 01/17/152012 [facility] Service: Hospitalist Progress Note Pt: Cole Ernst AGE/SEX: 69 y.o. female : 1945 ROOM: [address] [place] [address] History of Present Illness: " The patient is a 69 y.o. 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 Patient states that her doctor "cut her off cold turkey" of her methadone 3 wee ks ago. She states that since that time she has been having vomiting 8-10 episodes per day, diarrhea, 8-10 episodes per day, abdominal pain, poor appetite, generalized myalgias, and i nsomnia. She states that the vomiting and diarrhea have improved. However, today she was w alking across her apartment when she "collapsed. She states that she felt lightheaded prior to this, and sweaty. She did not lose consciousness. She states that she called out for h er neighbor who called EMS. Patient was taken to [facility] in [place]. Susie ent was noted to have a white count of 12,000, hemoglobin of 14, hematocrit 44, platelet cou nt 190, glucose 145, creatinine of 2.4, BUN of 28, potassium of 3.2, albumin of 3.4, CO2 25, calcium 8.6. Her troponin was borderline elevated at 0.76, patient had a lactic acid of 1. 4. Twelve-lead ECG showed normal sinus rhythm with rate of 75 and antrolateral T-wave inver alessandro. Patient was transferred here for higher level of care. Patient had borderline blood pressure. While at [facility] with systolic in the low 90s. Heart rate was in the 70s. Patient's previous creatinine was 1.38 on 11/15/14 and 1.25 on 06/04/13. Upon arrival here, patient was found to have a troponin which was elevated to 0.55. Twelve-lead ECG was unchanged. Patient was noted to have a creatinine of 2.4 here an d a white count of 16,000, here as well. ED physician and spoke with cardiology and patient was started on heparin for non-STEMI. Patient denies any chest pain, shortness of breath, headache. She states that she continues to have abdominal pain, which has been present for 3 weeks but is improved. S he states that she had abdominal CT done several days ago while in [place]. She also stat es that her vomiting and diarrhea have significantly improved. She denies any fevers, hemat emesis, melena, bright red blood per rectum, hematuria, dysuria, she denies any leg pain or swelling. No palpitations. She states she does have a history of "kidney disease" and was told that it was secondary to cyclosporine. However, she is not seen kidney specialist [facility] e her liver transplant.".....per admitting MD/Dr. Hartman. TODAY'S DATE: 01/17/2015 Hospital Day: LOS: 3 days SUBJECTIVE: 01/15/15: Denies chest pain or shortness of breath. Systolic blood pressure elevated. The pa sharlene is doing well overall. Renal function has improved significant since admission with cr eatinine decreasing from 2.4 to 1.7. Electrolytes have been corrected. Leukocytosis is decre asing. 01/16/15: The patient overall is feeling quite well. She has had no abdominal pain. She stil l has loose bowel movements for a total of 2; however, stool studies were not collected as n oted. I urged the staff rn to introduce a hat so that sample can be obtained. The case was d iscussed with Dr. Ramey with regards to the patient's abnormal colon appearance in the CT of the abdomen and pelvis in the area of splenic flexure. We asked Dr. Ramey to evaluate whether or not colonoscopy would be appropriate for further evaluation. Ms. Ernst had an episode of chest pain lasting about 3 minutes during the night which was not recorded on the EKG. Like malagon sublingual nitroglycerin was not given as the patient's discomfort dissipated. She had no nausea, diaphoresis, or shortness of breath. Leukocytosis has decreased. Patient was treated so far with empiric ceftriaxone due to her immunocompromised state and clinical presentation. So far, blood cultures remain negative. Bill Ernst has been adherent to her immunosuppressive therapy with azathioprine and cyclospor in for her remote liver transplant. Renal function much improved with judicious hydration. 01/17/15: The patient is doing relatively well today. No significant shortness of breath. Sh e achieved fairly clear bowel preparation after GoLYTELY given yesterday by Dr. Ramey. Colono scopy planned today for around 1900 hours with respect to abnormal appearance of the colon i n the area of the splenic flexure. Appreciate Dr. Riggins's consult/recs as the patient had v doreen mildly elevated troponins likely representing demand ischemia as related to her overall presentation. Systolic blood pressure has been suboptimally controlled. Will add p.r.n. labetalol. Contin ue oral metoprolol. Review of Systems: Review of Systems Constitutional: Negative for fever and chills. HENT: Negative for hearing loss. Eyes: Negative for blurred vision and double vision. Respiratory: Negative for cough and hemoptysis. Cardiovascular: Negative for chest pain and palpitations. Gastrointestinal: Negative for heartburn and nausea. Genitourinary: Negative for dysuria and urgency. Musculoskeletal: Negative for myalgias and neck pain. Skin: Negative for itching. Neurological: Negative for dizziness, tingling, tremors, seizures, loss of consciousness an d headaches. Endo/Heme/Allergies: Negative for polydipsia. Psychiatric/Behavioral: Negative for depression and suicidal ideas. Scheduled Medications azaTHIOprine 50 mg Oral Daily cefTRIAXone 1 g Intravenous Q24H cholecalciferol 2,000 Units Oral Daily cyanocobalamin 1,000 mcg Oral Daily cycloSPORINE 75 mg Oral BID fluticasone 1 spray Each Nare Daily folic acid (FOLVITE) IVPB 1 mg Intravenous Q24H Or multivitamin & minerals w iron/FA 1 tablet Oral Q24H gabapentin 400 mg Oral BID heparin (porcine) 5000 unit/0.5mL 5,000 Units Subcutaneous 2 times per day levothyroxine 125 mcg Oral QAM AC metoprolol 100 mg Oral BID pneumococcal 23-valent vaccine 0.5 mL Intramuscular Once Immunization thiamine (VITAMIN B1) IVPB 100 mg Intravenous Q24H Continuous Infusions sodium chloride (IV) 50 mL/hr at 01/17/15 1427 PRN Medications acetaminophen OR acetaminophen, diazepam, diazepam OR diazepam, hydrALAZINE, HYDROc odone-acetaminophen, HYDROcodone-acetaminophen, magnesium sulfate OR magnesium sulfate * *OR magnesium sulfate, ondansetron OR ondansetron, phosphorus OR sodium phosphate IVPB 20 mmol OR sodium phosphate IVPB 45 mmol, polyethylene glycol potassium chloride OR potassium chloride OR potassium chloride OR potassium chl oride OR potassium chloride OR potassium chloride Allergy: Allergies Allergen Reactions Codeine Nausea and Vomiting OBJECTIVE Vitals: Patient Vitals for the past 24 hrs: BP Temp Temp src Pulse Resp SpO2 Weight 01/17/15 1534 155/86 mmHg 97.9 F (36.6 C) Oral 66 18 98 % - 01/17/15 1247 (!) 155/96 mmHg - - - - - - 01/17/15 1245 (!) 175/93 mmHg 98.3 F (36.8 C) Oral 64 18 98 % - 01/17/15 0814 (!) 155/95 mmHg - - - - - - 01/17/15 0812 (!) 169/98 mmHg 98.1 F (36.7 C) Oral 78 18 98 % - 01/17/15 0608 - - - - - - 86.5 kg (190 lb 11.2 oz) 01/17/15 0255 148/71 mmHg 97.9 F (36.6 C) Oral 68 18 99 % - 01/16/15 2306 (!) 182/98 mmHg 97.7 F (36.5 C) Oral 72 16 97 % - 01/16/15 1952 (!) 166/99 mmHg 98.3 F (36.8 C) Oral 77 16 97 % - I&O Detailed Table: Intake/Output Summary (Last 24 hours) at 01/17/15 1629 Last data filed at 01/17/15 0300 Gross per 24 hour Intake 1195 ml Output 650 ml Net 545 ml Patient Vitals for the past 96 hrs: Weight 01/17/15 0608 86.5 kg (190 lb 11.2 oz) 01/16/15 0331 89.5 kg (197 lb 5 oz) 01/15/15 0351 90.8 kg (200 lb 2.8 oz) 01/14/15 2154 89.6 kg (197 lb 8.5 oz) 01/14/15 2138 89.6 kg (197 lb 8.5 oz) 01/14/15 1705 88.451 kg (195 lb) Hemodynamics Last 24hrs: Examination: Physical Exam Constitutional: She is oriented to person, place, and time. She appears well-developed. HENT: Head: Normocephalic. Mouth/Throat: Oropharynx is clear and moist. No oropharyngeal exudate. Eyes: Pupils are equal, round, and reactive to light. No scleral icterus. Neck: Normal range of motion. No tracheal deviation present. Cardiovascular: Normal rate and regular rhythm. No murmur heard. Pulmonary/Chest: Effort normal and breath sounds normal. No respiratory distress. She has n o wheezes. Abdominal: Soft. Bowel sounds are normal. She exhibits no distension. There is no tendernes s. Musculoskeletal: Normal range of motion. She exhibits no edema or tenderness. Neurological: She is alert and oriented to person, place, and time. No cranial nerve defici t. Coordination normal. Skin: Skin is warm and dry. She is not diaphoretic. No pallor. Psychiatric: She has a normal mood and affect. Her behavior is normal. LABS: Recent Labs Lab 01/17/15 0353 01/16/1532001/15/15 0632 WBC 10.74 10.55 13.11* HGB 12.0 11.6 11.2* HCT 35.8 34.5 34.4 PLT 149* 144* 160 NEUTOPHILPCT 52.08 37.99 50.65 MONOPCT 10.07 11.24 9.60 Recent Labs Lab 01/17/15 1413 01/17/15 0353 01/16/15200201/16/15 0321 01/15/15 0632 NA -- 138 -- -- 138 143 K 3.6 3.2* 3.5 < > 3.0* 3.7 CL -- 100 -- -- 104 110* CO2 -- 28 -- -- 22* 24 BUN -- 8 -- -- 13 24 CREATININE -- 0.94 -- -- 1.01* 1.7* PROT -- 7.8 -- -- 7.1 7.0 BILITOT -- 0.4 -- -- 0.4 0.4 ALT -- 24 -- -- 19 29 AST -- 34 -- -- 26 35 < > = values in this interval not displayed. Phosphorus: Recent Labs Lab 01/17/15 1413 PHOS 2.1* Recent Labs Lab 01/17/15 1413 01/16/15200201/16/15 0321 MG 1.2* 1.5* 1.2* Recent Labs Lab 01/14/15 1549 AMYLASE 85 Recent Labs Lab 01/14/15 1549 LIPASE 559* Recent Labs Lab 01/14/15 1548 APTT 26 INR 1.3 Recent Labs Lab 01/16/15 03201/15/15 0623 TSH 18.97* 9.51* FREET4 0.9 -- Recent Labs Lab 01/15/15 0632 01/15/15 0051 01/14/15 1548 CKTOTAL -- -- 151 TROPONINI 0.484* 0.509* 0.555* CKMBINDEX -- -- 2.6 Diagnostic: Ct Abdomen Pelvis Without Contrast 01/14/2015 HISTORY: 69 year-old female with abdominal pain TECHNIQUE: CT through the abdo men and pelvis. Performed without the administration of IV contrast. Examination performed w ith enteric contrast. Prior study for comparison: None FINDINGS: Composite Bond Technician 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 deg enerative changes of the spine, interventional changes and clips in the gallbladder fossa an d below the left hemidiaphragm.. Lung bases demonstrate atelectasis and some chronic fibrot ic appearing changes to the lower lung muñoz-symmetric. No consolidation or effusion. Bone s are without aggressive lesion or fracture. Nonaggressive and degenerative changes with dem ineralization- not uncommon for age. Soft tissue windows of the abdomen reveal no fluid col lection the gallbladder fossa. Normal pancreas, liver-the spleen is absent. Kidneys are with out stone or dense lesion with a low-density cystic structure arising from the posterior cor emeli of the left kidney on image 33-about 14 mm in size. Vasculopathy the aorta and branch v essels. Extensive diverticulosis of the sigmoid bowel, without evidence of abnormal fluid c ollection in only minimal reticular changes in the adjacent fat. No hernia. No pelvic sidew all or other lymphadenopathy. Pelvic vascular and pericolonic calcifications, but no hydrou reter or proven stones within either ureter There is diffuse lipomatous infiltration of the ileocecal junction. The appendix is not seen. There may be some slight infiltrative wall t hickening of a segment of the colon on image 32 series 3, but no obstruction 01/14/2015 1. Irregular or infiltrative segment of wall thickening of a short segment of the the proximal large bowel near the hepatic flexure. No obstruction. Given the patient's age-would correlate with colonoscopy. No extraluminal lesion, does not seem masslike-but mal ignancy cannot be excluded. A short segment colitis or infiltration is a differential consid eration 2. Extensive diverticulosis of the sigmoid bowel, but no high-grade inflammatory ch rodriguez or extraluminal fluid collection Electronically signed by Gary Wong MD on 10:11 PM Xr Chest 1 View 01/14/2015 HISTORY: 69 years old female, infection TECHNIQUE: Computer enhanced AP uprigh t portable radiographic examination of the chest, 14 January 2015. Prior study for compariso n -- none FINDINGS: Mediastinum -- cardiomegaly. Some vascular calcification. Lung markin gs are somewhat coarse.Atelectasis is probably confounding as the patient is hypoinflated. N o focal infiltrate or evidence of advanced pulmonary venous hypertension. Lung volumes are s ymmetric although low. Degenerative change the spine and shoulders and there are extensive clips in the gallbladder fossa and below the left hemidiaphragm. 01/14/2015 1. Hypoinflated chest, but no evident infiltrate Echo Cardiac Adult Complete 01/15/2015 Patient Name: COLE ERNST Date of : 1945 Performing Physician: Gil Coronel MD ------REPORT ADDENDED------ INDICATIONS abnormal ekg CONCL USIONS 1. Indication for study and thus clinical question is unknown. Minor irre gularities as below. FINDINGS -------- [no group]: Indication for study and thus clinical q uestion is unknown. Results as below. ECG rhythm: Sinus rhythm. Study: A 2-dimensional trans thoracic echocardiogram with m-mode, spectral and color flow Doppler was perfomed. Study: T his was a technically adequate study. Left Ventricle: Overall left ventricular systolic func tion is normal with, an EF between 65 - 70 %. Left Ventricle: The left ventricle cavity siz e is normal. Left Ventricle: Left ventricular wall thickness is normal. Left Ventricle: Ps eudonormal LV diastolic filling pattern, consistent with elevated LA pressure and moderate d ysfunction (Grade II). Right Ventricle: The right ventricle is normal in size. Left Atrium: The left atrium is markedly dilated. Right Atrium: The right atrial size is normal. Aortic V alve: The aortic valve is trileaflet and appears structurally normal. Aortic Valve: There i s no evidence of aortic regurgitation. Aortic Valve: There is no evidence of aortic stenosi s. Mitral Valve: The mitral valve is normal. Mitral Valve: No mitral regurgitation. Tricusp id Valve: The tricuspid valve appears structurally normal. Tricuspid Valve: Mild tricuspid regurgitation present. Tricuspid Valve: There is mild pulmonary hypertension. Tricuspid Va lve: The right ventricular systolic pressure (pulmonary artery systolic pressure), as measur ed by Doppler, is 38.21mmHg. Pulmonic Valve: The pulmonic valve is normal. Pericardium: Ante rior echo free space present. IVC/Hepatic Veins: The IVC is normal size (1.5-2.5cm) and fatoumata apses >50% with sniff, consistent with central venous pressures of 5-10mmHg. Pulmonary Arter y: The pulmonary artery is moderately dilated. MEASUREMENTS Ao asc: 3.02 cm Ao Diam: 2.92 cm IVC: 2.23 cm LA Diam: 4.49 cm LA Major: 6.03 cm EDV(Teich): 74.0 3 ml IVSd: 1.12 cm LVIDd: 4.09 cm LVPWd: 1.04 cm LVOT Diam: 1.95 cm %FS: 37.64 % E F(Teich): 68.20 % ESV(Teich): 23.53 ml IVSs: 1.19 cm LVIDs: 2.55 cm LVPWs: 1.50 cm SV(Teich): 50.49 ml RA Major: 4.95 cm RVIDd: 2.83 cm LAESV(A-L): 78.59 ml LAESV Ind ex (A-L): 40.51 ml/m2 LAAs A2C: 24.56 cm2 LAESV A-L A2C: 76.32 ml LAESV MOD A2C: 73. 52 ml LALs A2C: 6.71 cm LAAs A4C: 24.96 cm2 LAESV A-L A4C: 79.86 ml LAESV MOD A4C: 7 7.20 ml LALs A4C: 6.62 cm Ao Diam: 2.73 cm AV Cusp: 2.27 cm LA Diam: 4.29 cm LA/Ao: 1.57 D-E Excursion: 2.11 cm E-F [place]: 0.09 m/s EPSS: 0.48 cm HR: 77.41 BPM AV ma xP.05 mmHg AV meanP.21 mmHg AV Vmax: 1.73 m/s AV Vmean: 1.25 m/s AV VTI: 34.68 cm BAYRON Vmax: 2.07 cm2 BAYRON (VTI): 1.85 cm2 LVCI Dopp: 2.60 l/minm2 LVCO Dopp: 5 .05 l/min HR: 78.81 BPM LVOT maxP.75 mmHg LVOT meanP.84 mmHg LVSI Dopp: 33.0 8 ml/m2 LVSV Dopp: 64.18 ml LVOT Vmax: 1.19 m/s LVOT Vmean: 0.77 m/s LVOT VTI: 21.32 cm MCO: 394.46 ms MV A Billy: 0.39 m/s MV DecT: 206.91 ms MV E Billy: 0.66 m/s MV E/A R atio: 1.69 MV PHT: 48.49 ms MVA By PHT: 4.53 cm2 MV A Dur: 114.18 ms IVRT: 96.88 ms Septal e': 0.06 m/s Septal E/e': 9.92 Lateral e': 0.11 m/s Lateral E/e': 6.00 P Vein D: 0.62 m/s P Vein S/D Ratio: 0.87 P Vein S: 0.54 m/s HR: 76.72 BPM PV maxP.32 mmHg PV meanP.85 mmHg PV Vmax: 1.03 m/s PV Vmean: 0.62 m/s PV VTI: 13.14 cm RAP: 10 mmHg RVSP: 38.20 mmHg TR maxP.20 mmHg TR Vmax: 2.65 m/s TV A Billy: 0.66 m/s TV Dec [place]: 4.36 m/s2 TV Dec Time: 184.41 ms TV E Billy: 0.80 m/s TV E/A Rat io: 1.21 Clinical Services Professional: NEDRA Authenticated by: Gil Coronel MD Report Date/Time: 01-15 09:12:05 01/15/2015 1. Indication for study and thus clinical question is unknown. Minor irregulari ties as below. Past Medical History Diagnosis Date Stroke (HCC) Hyperlipidemia Hypertension Past Surgical History Procedure Laterality Date Liver transplant 192 Gallbladder surgery 1991 Splenectomy PROBLEM LIST Principal Problem: NSTEMI (non-ST elevated myocardial infarction) (HCC) Active Problems: ZULAY (acute kidney injury) (HCC) Liver replaced by transplant (HCC) Essential hypertension, benign CKD (chronic kidney disease), stage III Hypokalemia Immunosuppression (HCC) Leukocytosis, unspecified Macrocytosis without anemia Hypophosphatemia Other severe protein-calorie malnutrition (HCC) ASSESSMENT & PLAN 69-year-old female with the followin. Borderline elevation of troponin with likely demand ischemia. Continue current medical t herapy. Appreciate cardiology input and recommendations. 2. Acute kidney injury with underlying improvement of renal function and actually near norm alization of creatinine. Today, creatinine is 0.94 (2.4 on admission). Continue judicious IV fluids with reduction of normal saline 50 mL/hour. 3. Infiltrative short segment with wall thickening of the proximal large bowel near the hep atic flexure. Abdominal discomfort has improved since admission. The patient underwent bowel prep overnight and today colonoscopy with Dr. Ramey at around 1900 hours. Further recommenda tions as per GI. 4. History of previous liver transplant in the remote past with immunosuppressive with azat hioprine and cyclosporin. Liver function tests has been normal. 5. Hypertension history. Systolic blood pressure has been showing increasing trend since ad mission. Hydralazine p.r.n. Will add p.r.n. IV labetalol as well. 6. History of daily alcohol intake. Continue thiamine and folate. Continue p.r.n. benzodiaz epine, but this far the patient has not shown any signs or symptoms. 7. SCDs and subcutaneous heparin. 8. Possible subclinical hyperthyroidism with elevated TSH and normal T3, T4. Might consider increasing the patient's levothyroxine from 125 to 150 mcg p.o. daily. Another option is to repeat the patient's thyroid studies in 1 to 2 weeks after discharge for reevaluation. 9. Hypokalemia and hypomagnesemia with hypophosphatemia. Electrolyte replacement protocol. 10. Disposition. Potential discharge on January 18, 2015, if able and if cleared by GI to do so. Possible severe protein calorie malnutrition. Continue nutritional supplements as recommend ed by nutrition service/body component engineer. Jose Maria Espinal MD 01/17/2015 4:29 PM onversion Transa ction, Provider Unknown - 01/17/2015 3:15 PM PDT Case Management by PHUONG Sandhu at 01/17/15 1515 Author: PHUONG Sandhu Service: (none) Author Type: Attic Fans Mechanic Filed: 01/17/15 1518 Date of Service: 01/17/155 Status: Signed Machine Fur Cleaner: PHUONG Sandhu (Attic Fans Mechanic) 01/17/15 1500 Discharge Planning Evaluation Admitting Diagnosis Near syncope, elevated tropinin, non-stemi, CKD Anticipated Disposition Facility Type detention facility Medicare Important Message (MEREDITH) Given Prison [facility] Other (comment) ([facility]) TRIALS MANAGER met with Pt for discharge planning, on board with going to [facility] when medically ready. TRIALS MANAGER p/c to [facility] - will accept Pt when medically ready. [facility] (73 miles) [address] [place] [address], [place] Threat Analyst: Will DCP: [facility] Transportation: [facility] - Threat Analyst: Will [phone] Medicare important message signed and copy in chart LUIS FOUNTAIN, Marriage Counselor [phone] cell Rosangela Zavala MD - 01/17/2015 1:11 PM PDT Progress Notes by Rosangela Steinberg MD at 01/17/15 1311 Author: Rosangela Steinberg MD Service: Infectious Disease Author Type: Physician Filed: 01/17/15 3744 Date of Service: 01/17/15 1311 Status: Signed Machine Fur Cleaner: Rosangela Steinberg MD (Physician) [facility] Service: Infectious Disease Progress Note Hospital Day: LOS: 3 days Post-Op Day: * No surgery date entered * SUBJECTIVE Patient Summary: From Dr. Tadeo's prior note: The patient is a 69 y.o. female with significant past medical history of liver transplant, renal insufficiency, dyslipidemia, fol lows with Dr. Oliva, on methadone for chronic back pain-abruptly stopped about 3 weeks ago, presented to emergency room yesterday with generalized weakness, vomiting and diarrhea. Had initially presented to [facility] in [place] with similar complaints. Was foun d to have an elevated troponin. She was mainly admitted as a non-STEMI. Found to have a leuk ocytosis. Since patient is immunocompromised, she was started empirically on IV ceftriaxone. Chest x-ray showed no infiltrate. Patient denies any recent fevers or chills. She went to [facility] mainly becau se of syncope. Prior to that felt lightheaded. Complaints of nausea vomiting and some diarrh ea for the last 2-3 weeks. Has never had a colonoscopy done. No significant abdominal pain. Denies any significant loss of appetite or loss of weight. No recent antibiotics for UTI, bronchitis or any other infection. Last episode of UTI was a bout 4 months ago. No recent travel. No pets at home. Lives by herself. Denies any recent eating out, eating o ld foods and canned food. No history of exposure to anyone who is sick Events Overnight: Afebrile. Leukocytosis has resolved. Patient has been evaluated by Dr. Ramey from Gastroenterology and cleared by cardiology to proceed for colonoscopy. Per nu ing report, still has diarrhea. According to the patient though, after she took the GoLYT EMILY, there has been no further stools. She denies abdominal pain, nausea or vomiting. She florentino s no chills or sweats. Scheduled Medications azaTHIOprine 50 mg Oral Daily cefTRIAXone 1 g Intravenous Q24H cholecalciferol 2,000 Units Oral Daily cyanocobalamin 1,000 mcg Oral Daily cycloSPORINE 75 mg Oral BID fluticasone 1 spray Each Nare Daily folic acid (FOLVITE) IVPB 1 mg Intravenous Q24H Or multivitamin & minerals w iron/FA 1 tablet Oral Q24H gabapentin 400 mg Oral BID heparin (porcine) 5000 unit/0.5mL 5,000 Units Subcutaneous 2 times per day levothyroxine 125 mcg Oral QAM AC metoprolol 100 mg Oral BID pneumococcal 23-valent vaccine 0.5 mL Intramuscular Once Immunization thiamine (VITAMIN B1) IVPB 100 mg Intravenous Q24H Continuous Infusions sodium chloride (IV) 50 mL/hr at 01/16/15 1437 PRN Medications acetaminophen OR acetaminophen, diazepam, diazepam OR diazepam, hydrALAZINE, HYDROc odone-acetaminophen, HYDROcodone-acetaminophen, magnesium sulfate OR magnesium sulfate * *OR magnesium sulfate, ondansetron OR ondansetron, phosphorus OR sodium phosphate IVPB 20 mmol OR sodium phosphate IVPB 45 mmol, polyethylene glycol potassium chloride OR potassium chloride OR potassium chloride OR potassium chl oride OR potassium chloride OR potassium chloride OBJECTIVE Vital Signs: BP 155/96 mmHg | Pulse 64 | Temp(Src) 98.3 F (36.8 C) (Oral) | Resp 18 | Ht 1.6 m (5' 3 ") | Wt 86.5 kg (190 lb 11.2 oz) | BMI 33.79 kg/m2 | SpO2 98% | ? No Temp: [97.7 F (36.5 C)-98.3 F (36.8 C)] 98.3 F (36.8 C) (01/17 1245) BP: (148-182)/(71-99) 155/96 mmHg (01/17 1247) Heart Rate: [64-78] 64 (01/17 1245) Resp: [16-18] 18 (01/17 1245) SpO2: [95 %-99 %] 98 % (01/17 1245) Weight: [86.5 kg (190 lb 11.2 oz)] 86.5 kg (190 lb 11.2 oz) (01/17 0608) Physical Exam Vital signs have been reviewed Gen.: Pleasant female, sitting comfortably in her chair, not in distress HEENT: Normocephalic. Sclerae are anicteric. No oral thrush or ulcers. Lungs: No adventitious breath sounds Cardiovascular: Regular rate and rhythm, no murmur or rubs Abdomen: No distention, positive bowel sounds, soft, no tenderness Skin: No diffuse rash Neurologic: Oriented 3, no focal weakness Psychiatric: cooperative for the clinical encounter DATA CBC: Lab Results Component Value Date WBC 10.74 01/17/2015 RBC 3.40* 01/17/2015 HGB 12.0 01/17/2015 HCT 35.8 01/17/2015 MCV 105.3* 01/17/2015 MCH 35.3* 01/17/2015 MCHC 33.6 01/17/2015 RDW 50.8 01/17/2015 PLT 149* 01/17/2015 MPV 13.0 01/17/2015 DIFFTYPE AUTOMATED 01/17/2015 WBC: Lab Results Component Value Date WBC 10.74 01/17/2015 NEUTABSMAN 9.39* 01/14/2015 NEUTROABS 5.59 01/17/2015 NEUTROMAN 58 01/14/2015 LYMPHOABS 5.18* 01/14/2015 LYMPHOMAN 32 01/14/2015 LYMPHSABS 3.48 01/17/2015 LYMPHOPCT 32.37 01/17/2015 MONOABSMAN 1.46* 01/14/2015 MONOMAN 9 01/14/2015 MONOPCT 10.07 01/17/2015 EOSINOABS 0.16 01/14/2015 EOSINOMAN 1 01/14/2015 EOSABS 0.47 01/17/2015 EOSPCT 4.41 01/17/2015 BASOSABS 0.12* 01/17/2015 BASOPCT 1.07 01/17/2015 COMDIFF 1+ GIANT PLT 01/17/2015 CMP: Lab Results Component Value Date NA 138 01/17/2015 K 3.2* 01/17/2015 CL 100 01/17/2015 CO2 28 01/17/2015 ANIONGAP 13 01/17/2015 GLUF 114* 01/17/2015 BUN 8 01/17/2015 CREATININE 0.94 01/17/2015 BCR 9 01/17/2015 CA 7.8* 01/17/2015 CA 9.1 11/15/2014 PROT 7.8 01/17/2015 ALB 3.3 01/17/2015 GLOB 4.5 01/17/2015 BILITOT 0.4 01/17/2015 ALP 83 01/17/2015 AST 34 01/17/2015 ALT 24 01/17/2015 EGFR >60 01/17/2015 Microbiology data: 01/15 C. difficile PCR negative 01/16 Giardia antigen negative, fecal WBCs negative, stool culture in process 01/15 blood cultures with no growth to date 01/15 urine culture negative 01/14 MRSA nasal PCR negative Radiology data: Impression 1. Irregular or infiltrative segment of wall thickening of a short segment of the the proxi mal large bowel near the hepatic flexure. No obstruction. Given the patient's age-would correlate with colonoscopy. No extraluminal lesion, does not seem masslike-but malignancy cannot be excluded. A short segment colitis or infiltration is a differential consideration 2. Extensive diverticulosis of the sigmoid bowel, but no high-grade inflammatory change or extraluminal fluid collection abdomen pelvis without contrast [[id number]] Impression 1. Hypoinflated chest, but no evident infiltrate chest 1 view [[id number]] Impression 1. Indication for study and thus clinical question is unknown. Minor irregularities as belo w. Echo cardiac adult complete [ECHO50] PROBLEM LIST Principal Problem: NSTEMI (non-ST elevated myocardial infarction) (HCC) Active Problems: ZULAY (acute kidney injury) (HCC) Liver replaced by transplant (HCC) Essential hypertension, benign CKD (chronic kidney disease), stage III Hypokalemia Immunosuppression (HCC) Leukocytosis, unspecified Macrocytosis without anemia Hypophosphatemia Other severe protein-calorie malnutrition (HCC) ASSESSMENT & PLAN Leukocytosis -Resolved; patient has been afebrile -Patient had diarrhea but C. difficile PCR came back negative. -All cultures are negative so far. Pro-calcitonin has been no -Abdominal CT scan shows nonspecific irregularity at the bowel wall near the hepatic flexu re. There is diverticulosis but no evidence of diverticulitis. Appreciate Dr. Ramey's input; colonoscopy is planned for today -Patient is immunocompromised as she had a liver transplant and is on immunosuppressive me dications. Continue ceftriaxone for now; we will adjust antibiotics based on subsequent micr obiology data and colonoscopy findings. Dr. Ramey raised concern for CMV colitis renal insufficiency -GFR at 59; ceftriaxone does not need dose adjustment Code Status: Full Code ROSANGELA STEINBERG MD 01/17/2015 Elgin Boucher MD - 01/16/2015 9:28 PM PDTFormatting of this note might be different from the or iginal. Progress Notes by Juju Riggins MD at 01/16/152127 Author: Juju Riggins MD Service: Cardiology Author Type: Physician Filed: 01/16/152137 Date of Service: 01/16/152127 Status: Signed Machine Fur Cleaner: Juju Riggins MD (Physician) [facility] Service: Cardiology Progress Note Hospital Day: LOS: 2 days Mildly elevated troponins likely demand ischemia in setting of acute renal failure and infe ction/sepsis rather than true ACS Echo reviwed, hyperdynamic LV systolic function, no wall motion abnormality Chest pain free - It would be reasnable for patient to proceed with colonoscopy procedure from cardiology s [facility] - Consider pharmacologic nuclear stress test prior to discahrge Disposition: Code Status: Full Code Juju Riggins MD 01/16/2015 onversion T ransaction, Provider Unknown - 01/16/2015 4:43 PM PDTFormatting of this note might be diffe rent from the original. Case Management by PHUONG Sandhu at 01/16/151642 Author: PHUONG Sandhu Service: (none) Author Type: Attic Fans Mechanic Filed: 01/16/156 Date of Service: 01/16/151642 Status: Signed Machine Fur Cleaner: PHUONG Sandhu (Attic Fans Mechanic) 01/16/15 1600 Discharge Planning Evaluation Admitting Diagnosis Near syncope, elevated tropinin, non-stemi, CKD Anticipated Disposition Facility Type detention facility [facility] Facility Other (comment) ([facility]) PHUONG received p/c from Will, admissions at [facility], states they are willi ng to accept Pt to their Prison Facility, states their house physician will not pre scribe Methadone. Will states she will start authorization process with [employer] who is Managing the Medicare benefits. Will states the first 20 days are covered at 100% then day 21 will be $100.00 a day. DCP: [facility] or Home LUIS FOUNTAIN,Marriage Counselor [phone] cell Jose Maria Grimes MD - 01/16/2015 11:29 AM PDTFormatting of this note might be different from th e original. Progress Notes by Jose Maria Espinal MD at 01/16/15 1129 Author: Jose Maria Espinal MD Service: Hospitalist Author Type: Physician Filed: 01/17/15 1149 Date of Service: 01/16/15 1129 Status: Signed Machine Fur Cleaner: Jose Maria Espinal MD (Physician) Related Notes: Original Note by Jose Maria Espinal MD (Physician) filed at 01/16/15 1137 [facility] Service: Hospitalist Progress Note Pt: Cole Ernst AGE/SEX: 69 y.o. female : 1945 ROOM: [address] [place] [address] History of Present Illness: " The patient is a 69 y.o. 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 Patient states that her doctor "cut her off cold turkey" of her methadone 3 wee ks ago. She states that since that time she has been having vomiting 8-10 episodes per day, diarrhea, 8-10 episodes per day, abdominal pain, poor appetite, generalized myalgias, and i nsomnia. She states that the vomiting and diarrhea have improved. However, today she was w alking across her apartment when she "collapsed. She states that she felt lightheaded prior to this, and sweaty. She did not lose consciousness. She states that she called out for h er neighbor who called EMS. Patient was taken to [facility] in [place]. Susie ent was noted to have a white count of 12,000, hemoglobin of 14, hematocrit 44, platelet cou nt 190, glucose 145, creatinine of 2.4, BUN of 28, potassium of 3.2, albumin of 3.4, CO2 25, calcium 8.6. Her troponin was borderline elevated at 0.76, patient had a lactic acid of 1. 4. Twelve-lead ECG showed normal sinus rhythm with rate of 75 and antrolateral T-wave inver alessandro. Patient was transferred here for higher level of care. Patient had borderline blood pressure. While at [facility] with systolic in the low 90s. Heart rate was in the 70s. Patient's previous creatinine was 1.38 on 11/15/14 and 1.25 on 06/04/13. Upon arrival here, patient was found to have a troponin which was elevated to 0.55. Twelve-lead ECG was unchanged. Patient was noted to have a creatinine of 2.4 here an d a white count of 16,000, here as well. ED physician and spoke with cardiology and patient was started on heparin for non-STEMI. Patient denies any chest pain, shortness of breath, headache. She states that she continues to have abdominal pain, which has been present for 3 weeks but is improved. S he states that she had abdominal CT done several days ago while in [place]. She also stat es that her vomiting and diarrhea have significantly improved. She denies any fevers, hemat emesis, melena, bright red blood per rectum, hematuria, dysuria, she denies any leg pain or swelling. No palpitations. She states she does have a history of "kidney disease" and was told that it was secondary to cyclosporine. However, she is not seen kidney specialist [facility] e her liver transplant.".....per admitting MD/Dr. Hartman. TODAY'S DATE: 01/16/2015 Hospital Day: LOS: 2 days SUBJECTIVE: 01/15/15: Denies chest pain or shortness of breath. Systolic blood pressure elevated. The brittany su is doing well overall. Renal function has improved significant since admission with cr eatinine decreasing from 2.4 to 1.7. Electrolytes have been corrected. Leukocytosis is decre asing. 01/16/15: The patient overall is feeling quite well. She has had no abdominal pain. She stil l has loose bowel movements for a total of 2; however, stool studies were not collected as n oted. I urged the staff rn to introduce a hat so that sample can be obtained. The case was d iscussed with Dr. Ramey with regards to the patient's abnormal colon appearance in the CT of the abdomen and pelvis in the area of splenic flexure. We asked Dr. Ramey to evaluate whether or not colonoscopy would be appropriate for further evaluation. Ms. Ernst had an episode of chest pain lasting about 3 minutes during the night which was not recorded on the EKG. Like malagon sublingual nitroglycerin was not given as the patient's discomfort dissipated. She had no nausea, diaphoresis, or shortness of breath. Leukocytosis has decreased. Patient was treated so far with empiric ceftriaxone due to her immunocompromised state and clinical presentation. So far, blood cultures remain negative. Bill Ernst has been adherent to her immunosuppressive therapy with azathioprine and cyclospor in for her remote liver transplant. Renal function much improved with judicious hydration. Review of Systems: Review of Systems Constitutional: Negative for fever and chills. HENT: Negative for hearing loss. Eyes: Negative for blurred vision and double vision. Respiratory: Negative for cough and hemoptysis. Cardiovascular: Negative for chest pain and palpitations. Gastrointestinal: Negative for heartburn and nausea. Genitourinary: Negative for dysuria and urgency. Musculoskeletal: Negative for myalgias and neck pain. Skin: Negative for itching. Neurological: Negative for dizziness, tingling, tremors, seizures, loss of consciousness an d headaches. Endo/Heme/Allergies: Negative for polydipsia. Psychiatric/Behavioral: Negative for depression and suicidal ideas. Scheduled Medications azaTHIOprine 50 mg Oral Daily cefTRIAXone 1 g Intravenous Q24H cholecalciferol 2,000 Units Oral Daily cyanocobalamin 1,000 mcg Oral Daily cycloSPORINE 75 mg Oral BID fluticasone 1 spray Each Nare Daily folic acid (FOLVITE) IVPB 1 mg Intravenous Q24H Or multivitamin & minerals w iron/FA 1 tablet Oral Q24H gabapentin 400 mg Oral BID heparin (porcine) 5000 unit/0.5mL 5,000 Units Subcutaneous 2 times per day levothyroxine 125 mcg Oral QAM AC metoprolol 100 mg Oral BID pneumococcal 23-valent vaccine 0.5 mL Intramuscular Once Immunization thiamine (VITAMIN B1) IVPB 100 mg Intravenous Q24H Continuous Infusions sodium chloride (IV) 50 mL/hr at 01/16/15 1006 PRN Medications acetaminophen OR acetaminophen, diazepam, diazepam OR diazepam, hydrALAZINE, HYDROc odone-acetaminophen, HYDROcodone-acetaminophen, magnesium sulfate OR magnesium sulfate * *OR magnesium sulfate, ondansetron OR ondansetron, phosphorus OR sodium phosphate IVPB 20 mmol OR sodium phosphate IVPB 45 mmol, polyethylene glycol potassium chloride OR potassium chloride OR potassium chloride OR potassium chl oride OR potassium chloride OR potassium chloride Allergy: Allergies Allergen Reactions Codeine Nausea and Vomiting OBJECTIVE Vitals: Patient Vitals for the past 24 hrs: BP Temp Temp src Pulse Resp SpO2 Weight 01/16/15 0743 (!) 173/92 mmHg 97.7 F (36.5 C) Oral 87 18 98 % - 01/16/15 0721 - - - 94 - - - 01/16/15 0331 165/77 mmHg 97.9 F (36.6 C) Oral 80 18 98 % 89.5 kg (197 lb 5 oz) 01/16/15 0000 159/76 mmHg - - 88 - - - 01/15/15 2343 159/76 mmHg 98.2 F (36.8 C) Oral 99 18 98 % - 01/15/15 2004 137/65 mmHg 97.7 F (36.5 C) Oral 99 18 98 % - 01/15/15 1627 194/87 mmHg - - 82 - - - 01/15/15 1626 185/90 mmHg 98.3 F (36.8 C) Oral 82 18 99 % - 01/15/15 1156 159/74 mmHg 98.4 F (36.9 C) Oral 81 16 96 % - I&O Detailed Table: Intake/Output Summary (Last 24 hours) at 01/16/15 1129 Last data filed at 01/16/15 0552 Gross per 24 hour Intake 3168 ml Output 2500 ml Net 668 ml Patient Vitals for the past 96 hrs: Weight 01/16/15 0331 89.5 kg (197 lb 5 oz) 01/15/15 0351 90.8 kg (200 lb 2.8 oz) 01/14/15 2154 89.6 kg (197 lb 8.5 oz) 01/14/15 2138 89.6 kg (197 lb 8.5 oz) 01/14/15 1705 88.451 kg (195 lb) Hemodynamics Last 24hrs: Examination: Physical Exam Constitutional: She is oriented to person, place, and time. She appears well-developed. HENT: Head: Normocephalic. Mouth/Throat: Oropharynx is clear and moist. No oropharyngeal exudate. Eyes: Pupils are equal, round, and reactive to light. No scleral icterus. Neck: Normal range of motion. No tracheal deviation present. Cardiovascular: Normal rate and regular rhythm. No murmur heard. Pulmonary/Chest: Effort normal and breath sounds normal. No respiratory distress. She has n o wheezes. Abdominal: Soft. Bowel sounds are normal. She exhibits no distension. There is no tendernes s. Musculoskeletal: Normal range of motion. She exhibits no edema or tenderness. Neurological: She is alert and oriented to person, place, and time. No cranial nerve defici t. Coordination normal. Skin: Skin is warm and dry. She is not diaphoretic. No pallor. Psychiatric: She has a normal mood and affect. Her behavior is normal. LABS: Recent Labs Lab 01/16/1532001/15/1532 01/14/15 1548 WBC 10.55 13.11* 16.19* HGB 11.6 11.2* 14.6 HCT 34.5 34.4 42.7 PLT 144* 160 209 NEUTOPHILPCT 37.99 50.65 -- MONOPCT 11.24 9.60 -- Recent Labs Lab 01/16/1532001/15/15 0632 01/14/15 1548 NA 138 143 140 K 3.0* 3.7 2.8* CL 104 110* 100 CO2 22* 24 29 BUN 13 24 28* CREATININE 1.01* 1.7* 2.4* PROT 7.1 7.0 9.3* BILITOT 0.4 0.4 0.4 ALT 19 29 38 AST 26 35 39 Phosphorus: Recent Labs Lab 01/16/15 0321 PHOS 2.0* Recent Labs Lab 01/16/1532001/15/15 0632 01/14/15 1549 MG 1.2* 1.7 1.9 Recent Labs Lab 01/14/15 1549 AMYLASE 85 Recent Labs Lab 01/14/15 1549 LIPASE 559* Recent Labs Lab 01/14/15 1548 APTT 26 INR 1.3 Recent Labs Lab 01/16/1532001/15/15 0623 TSH 18.97* 9.51* FREET4 0.9 -- Recent Labs Lab 01/15/15 0632 01/15/15 0051 01/14/15 1548 CKTOTAL -- -- 151 TROPONINI 0.484* 0.509* 0.555* CKMBINDEX -- -- 2.6 Diagnostic: Ct Abdomen Pelvis Without Contrast 01/14/2015 HISTORY: 69 year-old female with abdominal pain TECHNIQUE: CT through the abdo men and pelvis. Performed without the administration of IV contrast. Examination performed w ith enteric contrast. Prior study for comparison: None FINDINGS: Composite Bond Technician 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 deg enerative changes of the spine, interventional changes and clips in the gallbladder fossa an d below the left hemidiaphragm.. Lung bases demonstrate atelectasis and some chronic fibrot ic appearing changes to the lower lung muñoz-symmetric. No consolidation or effusion. Bone s are without aggressive lesion or fracture. Nonaggressive and degenerative changes with dem ineralization- not uncommon for age. Soft tissue windows of the abdomen reveal no fluid col lection the gallbladder fossa. Normal pancreas, liver-the spleen is absent. Kidneys are with out stone or dense lesion with a low-density cystic structure arising from the posterior cor emeli of the left kidney on image 33-about 14 mm in size. Vasculopathy the aorta and branch v essels. Extensive diverticulosis of the sigmoid bowel, without evidence of abnormal fluid c ollection in only minimal reticular changes in the adjacent fat. No hernia. No pelvic sidew all or other lymphadenopathy. Pelvic vascular and pericolonic calcifications, but no hydrou reter or proven stones within either ureter There is diffuse lipomatous infiltration of the ileocecal junction. The appendix is not seen. There may be some slight infiltrative wall t hickening of a segment of the colon on image 32 series 3, but no obstruction 01/14/2015 1. Irregular or infiltrative segment of wall thickening of a short segment of the the proximal large bowel near the hepatic flexure. No obstruction. Given the patient's age-would correlate with colonoscopy. No extraluminal lesion, does not seem masslike-but mal ignancy cannot be excluded. A short segment colitis or infiltration is a differential consid eration 2. Extensive diverticulosis of the sigmoid bowel, but no high-grade inflammatory ch rodriguez or extraluminal fluid collection Electronically signed by Gary Wong MD on 10:11 PM Xr Chest 1 View 01/14/2015 HISTORY: 69 years old female, infection TECHNIQUE: Computer enhanced AP uprigh t portable radiographic examination of the chest, 14 January 2015. Prior study for compariso n -- none FINDINGS: Mediastinum -- cardiomegaly. Some vascular calcification. Lung markin gs are somewhat coarse.Atelectasis is probably confounding as the patient is hypoinflated. N o focal infiltrate or evidence of advanced pulmonary venous hypertension. Lung volumes are s ymmetric although low. Degenerative change the spine and shoulders and there are extensive clips in the gallbladder fossa and below the left hemidiaphragm. 01/14/2015 1. Hypoinflated chest, but no evident infiltrate Echo Cardiac Adult Complete 01/15/2015 Patient Name: COLE ERNST Date of : 1945 Performing Physician: Gil Coronel MD ------REPORT ADDENDED------ INDICATIONS abnormal ekg CONCL USIONS 1. Indication for study and thus clinical question is unknown. Minor irre gularities as below. FINDINGS -------- [no group]: Indication for study and thus clinical q uestion is unknown. Results as below. ECG rhythm: Sinus rhythm. Study: A 2-dimensional trans thoracic echocardiogram with m-mode, spectral and color flow Doppler was perfomed. Study: T his was a technically adequate study. Left Ventricle: Overall left ventricular systolic func tion is normal with, an EF between 65 - 70 %. Left Ventricle: The left ventricle cavity siz e is normal. Left Ventricle: Left ventricular wall thickness is normal. Left Ventricle: Ps eudonormal LV diastolic filling pattern, consistent with elevated LA pressure and moderate d ysfunction (Grade II). Right Ventricle: The right ventricle is normal in size. Left Atrium: The left atrium is markedly dilated. Right Atrium: The right atrial size is normal. Aortic V alve: The aortic valve is trileaflet and appears structurally normal. Aortic Valve: There i s no evidence of aortic regurgitation. Aortic Valve: There is no evidence of aortic stenosi s. Mitral Valve: The mitral valve is normal. Mitral Valve: No mitral regurgitation. Tricusp id Valve: The tricuspid valve appears structurally normal. Tricuspid Valve: Mild tricuspid regurgitation present. Tricuspid Valve: There is mild pulmonary hypertension. Tricuspid Va lve: The right ventricular systolic pressure (pulmonary artery systolic pressure), as measur ed by Doppler, is 38.21mmHg. Pulmonic Valve: The pulmonic valve is normal. Pericardium: Ante rior echo free space present. IVC/Hepatic Veins: The IVC is normal size (1.5-2.5cm) and fatoumata apses >50% with sniff, consistent with central venous pressures of 5-10mmHg. Pulmonary Arter y: The pulmonary artery is moderately dilated. MEASUREMENTS Ao asc: 3.02 cm Ao Diam: 2.92 cm IVC: 2.23 cm LA Diam: 4.49 cm LA Major: 6.03 cm EDV(Teich): 74.0 3 ml IVSd: 1.12 cm LVIDd: 4.09 cm LVPWd: 1.04 cm LVOT Diam: 1.95 cm %FS: 37.64 % E F(Teich): 68.20 % ESV(Teich): 23.53 ml IVSs: 1.19 cm LVIDs: 2.55 cm LVPWs: 1.50 cm SV(Teich): 50.49 ml RA Major: 4.95 cm RVIDd: 2.83 cm LAESV(A-L): 78.59 ml LAESV Ind ex (A-L): 40.51 ml/m2 LAAs A2C: 24.56 cm2 LAESV A-L A2C: 76.32 ml LAESV MOD A2C: 73. 52 ml LALs A2C: 6.71 cm LAAs A4C: 24.96 cm2 LAESV A-L A4C: 79.86 ml LAESV MOD A4C: 7 7.20 ml LALs A4C: 6.62 cm Ao Diam: 2.73 cm AV Cusp: 2.27 cm LA Diam: 4.29 cm LA/Ao: 1.57 D-E Excursion: 2.11 cm E-F [place]: 0.09 m/s EPSS: 0.48 cm HR: 77.41 BPM AV ma xP.05 mmHg AV meanP.21 mmHg AV Vmax: 1.73 m/s AV Vmean: 1.25 m/s AV VTI: 34.68 cm BAYRON Vmax: 2.07 cm2 BAYRON (VTI): 1.85 cm2 LVCI Dopp: 2.60 l/minm2 LVCO Dopp: 5 .05 l/min HR: 78.81 BPM LVOT maxP.75 mmHg LVOT meanP.84 mmHg LVSI Dopp: 33.0 8 ml/m2 LVSV Dopp: 64.18 ml LVOT Vmax: 1.19 m/s LVOT Vmean: 0.77 m/s LVOT VTI: 21.32 cm MCO: 394.46 ms MV A Billy: 0.39 m/s MV DecT: 206.91 ms MV E Billy: 0.66 m/s MV E/A R atio: 1.69 MV PHT: 48.49 ms MVA By PHT: 4.53 cm2 MV A Dur: 114.18 ms IVRT: 96.88 ms Septal e': 0.06 m/s Septal E/e': 9.92 Lateral e': 0.11 m/s Lateral E/e': 6.00 P Vein D: 0.62 m/s P Vein S/D Ratio: 0.87 P Vein S: 0.54 m/s HR: 76.72 BPM PV maxP.32 mmHg PV meanP.85 mmHg PV Vmax: 1.03 m/s PV Vmean: 0.62 m/s PV VTI: 13.14 cm RAP: 10 mmHg RVSP: 38.20 mmHg TR maxP.20 mmHg TR Vmax: 2.65 m/s TV A Billy: 0.66 m/s TV Dec [place]: 4.36 m/s2 TV Dec Time: 184.41 ms TV E Billy: 0.80 m/s TV E/A Rat io: 1.21 Clinical Services Professional: NEDRA Authenticated by: Gil Coronel MD Report Date/Time: 01-15 09:12:05 01/15/2015 1. Indication for study and thus clinical question is unknown. Minor irregulari ties as below. Past Medical History Diagnosis Date Stroke (HCC) Hyperlipidemia Hypertension Past Surgical History Procedure Laterality Date Liver transplant 192 Gallbladder surgery 1991 Splenectomy PROBLEM LIST Principal Problem: NSTEMI (non-ST elevated myocardial infarction) (HCC) Active Problems: ZULAY (acute kidney injury) (HCC) Liver replaced by transplant (HCC) Essential hypertension, benign CKD (chronic kidney disease), stage III Hypokalemia Immunosuppression (HCC) Leukocytosis, unspecified Macrocytosis without anemia Hypophosphatemia Other severe protein-calorie malnutrition (HCC) ASSESSMENT & PLAN 69-year-old female with the followin. Borderline elevated troponin with a question of underlying non-ST elevation myocardial i nfarction. Continue current medical therapy. Appreciate Dr. Riggins's recommendations and fol lowup. Question remains whether or not the patient would be clear from a cardiology standpoi nt for planned colonoscopy perhaps tomorrow. This request was communicated to Dr. Riggins thi s morning. 2. Acute kidney injury with underlying chronic kidney disease. Judicious IV fluids have bee n successful in reversal of acute kidney injury with fairly good normalization of creatinine as of today's labs with a creatinine level of 1.01 (2.4 at admission). Continue low-dose IV fluids. 3. Abdominal pain on admission. Evidence of irregular infiltrate/segmental wall thickening of a short segment of proximal large bowel near the hepatic flexure. Abdominal discomfort florentino s improved since admission. GI consultation with Dr. Ramey was notified this morning. Potenti al consideration for colonoscopy as appropriate. 4. History of previous liver transplant in the remote past. Continue immunosuppressive ther apy with azathioprine and cyclosporin. Normal LFTs. 5. Hypertension history. Systolic blood pressure has been showing increasing trend since ne toprolol has been held on admission due to her clinical picture of potential infection. We w ill restart her metoprolol today. 6. History of daily alcohol use. Continue thiamine and folate. Continue p.r.n. benzodiazepi miquel but so far none have been needed. Currently, no signs or symptoms of alcohol withdrawal. 7. Deep venous thrombosis prophylaxis. Sequential compression devices as well as subcutaneo us heparin. 8. Likely subclinical hypothyroidism with elevated TSH and normal free T4. We might conside r increasing levothyroxine to 150 mcg q.a.m. from 125 mcg. 9. Hypokalemia and hypomagnesemia and hypophosphatemia. Will initiate electrolyte replaceme nt protocol. Jose Maria Espinal MD 01/16/2015 11:29 AM onversion Transa ction, Provider Unknown - 01/16/2015 11:02 AM PDT Therapy Progress Note by Natalio Benito, PT at 01/16/15 1102 Author: Natalio Benito PT Service: (none) Author Type: Physical Therapist Filed: 01/16/15 1220 Date of Service: 01/16/15 1102 Status: Signed Machine Fur Cleaner: Natalio Benito PT (Physical Therapist) 01/16/15 1102 PT Last Visit PT Received On 01/16/15 Reason for Treatment Deconditioning;Other (comment) (NSTEMI; Syncope) Requires PT Follow Up Awaiting tx order Follow up PT Only? No PT Eval/Reassessment Date 01/16/15 Assistance Required 1 person Retail Equipment Associate Needed No Home Environment Type of Home Apartment ground level Home Exterior Layout Entry steps none Home Interior Layout Lives on main level with bedroom/bathroom Bathroom Shower/Tub Tub/shower unit Bathroom Toilet Standard Bathroom Equipment Shower stool;Grab bars in shower/bath;Grab bars outside of shower/bath Bathroom Accessibility Other (Comment) (Small bathroom) Home Equipment Walker 4 wheeled;Cane single point Prior Function Level of [place] Modified independent with functional mobility;Modified independent wi th ADLs;Modified independent with IADLs Lives With Alone Employment Retired for age Comments Wears 2L O2 at rest; 4L during activity; uses her 4WW outside of the home and SPC inside. Reports this as the first fall (which was related with syncope) RLE Assessment RLE Assessment (Slight functional weakness; bruise on R knee from fall) Cognition Overall Cognitive Status WFL Orientation Level Oriented Sensation Light Touch No apparent deficits Vision-Basic Assessment Current Vision Wears glasses Assessment of Patient Status Assessment of Patient Status Decreased functional mobility;Decreased ADL status;Decreased endurance Prognosis Should progress with skilled therapy intervention Safety Devices Safety Devices in Place Yes Type of Devices (sitting in recliner w/ call light and POWDERER present) Restraints Initially in Place No Precautions Other Precautions Fall Risk Plan Treatment/Interventions Balance training;Bed mobility training;Gait training;Therapeutic ex ercise;Transfer training PT Frequency 5-7x/wk Care Duration (# of days) 5 # of days Recommendation Recommendations SNF Equipment Recommended (TBD) PT Ready for Discharge Yes Recommendation Comments Discussed discharge planning with patient. She has concerns regardi ng returning home at this time. Considering the patient does live alone, she may be appropri ate for a short term subacute rehab (SNF) stay to work on her endurance and mobility deficit s. Patient was in agreement with this assessment. 01/16/15 1102 PT Last Visit PT Received On 01/16/15 Reason for Treatment Deconditioning;Other (comment) (NSTEMI; Syncope) Requires PT Follow Up Awaiting tx order Follow up PT Only? No PT Eval/Reassessment Date 01/16/15 Assistance Required 1 person Retail Equipment Associate Needed No Precautions Other Precautions Fall Risk Other Comments Comments Chart reviewed, evaluation completed. Per H/P: The patient is a 69 y.o. 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 Vitals at rest in supine : HR 79, BP 168/83. Vitals after activity in sitting: HR 78, BP 169/107, SpO2 95% w/ 3L. Pat ient supine in bed upon PT arrival; pleasant and agreeable to participation. patient citing discomfort from the bed and wanting to get into the chair after activity. Patient needing st eadying assist for bed mobility/CGA for transfers for safety. Patient fatigues quickly with limited activity and needs frequent seated rest breaks. No pain noted during activity, and p atient denied dyspnea throughout while using 3L O2. patient concerned about returning home a lone due to her increased fatigue/weakness and recent fall. Current impression is that SNF m ay be appropriate. Patient relies heavily on UEs for balance, patient unsteady and fearful o f falling when attempting to complete Tinetti items without UE support. Patient in the recli ner w/ POWDERER present at end of session, no new complaints. Cognition Overall Cognitive Status WFL Orientation Level Oriented Bed Mobility Rolling Standby assist Supine to Sit Min assist (1 LE OOB) Transfers Sit to/from Stand Minimal assist (steadying/contact guard);Standby assist Mobility Ambulation Assistance Standby assist Maximal Ambulation Distance (feet) 20x2 Total Ambulation Distance (feet) 40 Distance limited by? Therapist/staff discretion;Patient's ability (Fatigues after 20 ft of gait/20 seconds of marching) Pattern Decreased thanh;Right swing foot doesn't pass stance foot;Left swing foot doesn't pass stance foot Assistive Device Walker front wheeled Balance Balance (Relies heavily on UE support; unsteady without walker) Modalities Modalities Other therapy Other Therapy Educated on PT POC; educated on safe mobility techniques for transfers using a FWW Activity Tolerance Activity Tolerance Patient limited by fatigue Medical Staff Made Aware MD present during session Nurse Made Aware Yes Safety Devices Safety Devices in Place Yes Type of Devices (sitting in recliner w/ call light and POWDERER present) Restraints Initially in Place No Plan Treatment/Interventions Balance training;Bed mobility training;Gait training;Therapeutic ex ercise;Transfer training PT Frequency 5-7x/wk Care Duration (# of days) 5 # of days Recommendation Recommendations SNF Equipment Recommended (TBD) PT Ready for Discharge Yes Recommendation Comments Discussed discharge planning with patient. She has concerns regardi ng returning home at this time. Considering the patient does live alone, she may be appropri ate for a short term subacute rehab (SNF) stay to work on her endurance and mobility deficit s. Patient was in agreement with this assessment. Nupur Metzger MD - 01/16/2015 10:45 AM PDT Progress Notes by Nupur Tadeo MD at 01/16/15 1045 Author: Nupur Tadeo MD Service: Infectious Disease Author Type: Physician Filed: 01/16/15 1257 Date of Service: 01/16/15 1045 Status: Signed Machine Fur Cleaner: Nupur Tadeo MD (Physician) [facility] Service: Infectious Disease Progress Note Hospital Day: LOS: 2 days Post-Op Day: * No surgery found * SUBJECTIVE Patient Summary: The patient is a 69 y.o. female with significant past medical histo ry of liver transplant, renal insufficiency, dyslipidemia, follows with Dr. Oliva, on methad one for chronic back pain-abruptly stopped about 3 weeks ago, presented to emergency room ye sterday with generalized weakness, vomiting and diarrhea. Had initially presented to [facility] in [place] with similar complaints. Was found to have an elevated troponin . She was mainly admitted as a non-STEMI. Found to have a leukocytosis. Since patient is imm unocompromised, she was started empirically on IV ceftriaxone. Chest x-ray showed no infiltrate. Patient denies any recent fevers or chills. She went to [facility] mainly becau se of syncope. Prior to that felt lightheaded. Complaints of nausea vomiting and some diarrh ea for the last 2-3 weeks. Has never had a colonoscopy done. No significant abdominal pain. Denies any significant loss of appetite or loss of weight. No recent antibiotics for UTI, bronchitis or any other infection. Last episode of UTI was a bout 4 months ago. No recent travel. No pets at home. Lives by herself. Denies any recent eating out, eating o ld foods and canned food. No history of exposure to anyone who is sick Events Overnight: No new events Subjective Patient continues to have diarrhea She says that she has lost about 10 pounds weight in the last few weeks. She denies nausea or vomiting Appetite better No cough or shortness of breath No rash or areas of redness No abdominal pain or cramping Scheduled Medications azaTHIOprine 50 mg Oral Daily cefTRIAXone 1 g Intravenous Q24H cholecalciferol 2,000 Units Oral Daily cyanocobalamin 1,000 mcg Oral Daily cycloSPORINE 75 mg Oral BID fluticasone 1 spray Each Nare Daily folic acid (FOLVITE) IVPB 1 mg Intravenous Q24H Or multivitamin & minerals w iron/FA 1 tablet Oral Q24H gabapentin 400 mg Oral BID heparin (porcine) 5000 unit/0.5mL 5,000 Units Subcutaneous 2 times per day levothyroxine 125 mcg Oral QAM AC metoprolol 100 mg Oral BID pneumococcal 23-valent vaccine 0.5 mL Intramuscular Once Immunization thiamine (VITAMIN B1) IVPB 100 mg Intravenous Q24H Continuous Infusions sodium chloride (IV) 50 mL/hr at 01/16/15 1006 PRN Medications acetaminophen OR acetaminophen, diazepam, diazepam OR diazepam, hydrALAZINE, HYDROc odone-acetaminophen, HYDROcodone-acetaminophen, magnesium sulfate OR magnesium sulfate * *OR magnesium sulfate, ondansetron OR ondansetron, phosphorus OR sodium phosphate IVPB 20 mmol OR sodium phosphate IVPB 45 mmol, polyethylene glycol potassium chloride OR potassium chloride OR potassium chloride OR potassium chl oride OR potassium chloride OR potassium chloride OBJECTIVE Vital Signs: BP 173/92 mmHg | Pulse 87 | Temp(Src) 97.7 F (36.5 C) (Oral) | Resp 18 | Ht 1.6 m (5' 3 ") | Wt 89.5 kg (197 lb 5 oz) | BMI 34.96 kg/m2 | SpO2 98% | ? No Temp: [97.7 F (36.5 C)-98.4 F (36.9 C)] 97.7 F (36.5 C) (01/16 743) BP: (137-194)/(65-92) 173/92 mmHg (01/16 743) Heart Rate: [80-99] 87 (01/16 743) Resp: [16-18] 18 (01/16 743) SpO2: [96 %-99 %] 98 % (01/16 743) Weight: [89.5 kg (197 lb 5 oz)] 89.5 kg (197 lb 5 oz) (01/16 331) Vitals reviewed, nontoxic afebrile appears comfortable and not in any distress Conjunctivae normal No oral thrush Lungs clear to auscultation Heart S1-S2 no murmur Abdomen-no focal tenderness No areas of redness or rash Alert and appropriate DATA CBC: Lab Results Component Value Date WBC 10.55 01/16/2015 RBC 3.28* 01/16/2015 HGB 11.6 01/16/2015 HCT 34.5 01/16/2015 MCV 105.1* 01/16/2015 MCH 35.3* 01/16/2015 MCHC 33.5 01/16/2015 RDW 50.8 01/16/2015 PLT 144* 01/16/2015 MPV 13.0 01/16/2015 DIFFTYPE AUTOMATED 01/16/2015 WBC: Lab Results Component Value Date WBC 10.55 01/16/2015 NEUTABSMAN 9.39* 01/14/2015 NEUTROABS 4.01 01/16/2015 NEUTROMAN 58 01/14/2015 LYMPHOABS 5.18* 01/14/2015 LYMPHOMAN 32 01/14/2015 LYMPHSABS 4.59* 01/16/2015 LYMPHOPCT 43.49 01/16/2015 MONOABSMAN 1.46* 01/14/2015 MONOMAN 9 01/14/2015 MONOPCT 11.24 01/16/2015 EOSINOABS 0.16 01/14/2015 EOSINOMAN 1 01/14/2015 EOSABS 0.63* 01/16/2015 EOSPCT 5.97 01/16/2015 BASOSABS 0.14* 01/16/2015 BASOPCT 1.31 01/16/2015 COMDIFF 2+ GIANT PLT 01/16/2015 CMP: Lab Results Component Value Date NA 138 01/16/2015 K 3.0* 01/16/2015 CL 104 01/16/2015 CO2 22* 01/16/2015 ANIONGAP 15 01/16/2015 GLUF 82 01/16/2015 BUN 13 01/16/2015 CREATININE 1.01* 01/16/2015 BCR 13 01/16/2015 CA 7.7* 01/16/2015 CA 9.1 11/15/2014 PROT 7.1 01/16/2015 ALB 3.2* 01/16/2015 GLOB 3.9 01/16/2015 BILITOT 0.4 01/16/2015 ALP 76 01/16/2015 AST 26 01/16/2015 ALT 19 01/16/2015 EGFR 58* 01/16/2015 CPK: Lab Results Component Value Date CKTOTAL 151 01/14/2015 U/A: Lab Results Component Value Date CLARITYU Clear 11/15/2014 MEROPENEM 1.007 11/15/2014 LEUKOCYTESUR 1+ 11/15/2014 NITRITE Negative 11/15/2014 UROBILINOGEN Normal 11/15/2014 PHUR 5 11/15/2014 BLOODU Negative 11/15/2014 KETONES Negative 11/15/2014 BILIRUBINUR Negative 11/15/2014 GLUCOSEU Negative 12/05/2013 PROBLEM LIST Principal Problem: NSTEMI (non-ST elevated myocardial infarction) (HCC) Active Problems: ZULAY (acute kidney injury) (HCC) Liver replaced by transplant (HCC) Essential hypertension, benign CKD (chronic kidney disease), stage III Hypokalemia Immunosuppression (HCC) Leukocytosis, unspecified Macrocytosis without anemia Hypophosphatemia Other severe protein-calorie malnutrition (HCC) ASSESSMENT & PLAN Leukocytosis Component Latest Ref Rng 01/14/2015 01/15/2015 01/16/2015 WBC 3.80 - 11.00 K/uL 16.19 (H) 13.11 (H) 10.55 Appears to be nonspecific and reactive at this time question of some colitis on the CT scan of the abdomen-C. difficile negative Chest x-ray was unremarkable Blood culture-from 01/15-negative Urine culture -pending Pro-calcitonin was low and unremarkable Patient does have diarrhea for the last 3 weeks-C. difficile negative. Stool to be collecte d for other tests I suggest she be evaluated by colonoscopy-patient has never had one. We will also get stool cultures, or parasites done Noted CMV also ordered Diarrhea As above Immunocompromised patient/status post-liver transplant Continue IV antibiotics until blood culture reports finalized as negative. Renal insufficiency Ceftriaxone will not need adjustment Syncope and cardiac event Main reason for admission Defer to cardiology team Await stool report and opinion from gastroenterology. Continue ceftriaxone for now. Dr Steinberg Will assume ID service from tomorrow. Code Status: Full Code Nupur Tadeo MD 01/16/2015 onversio n Transaction, Provider Unknown - 01/16/2015 10:30 AM PDTFormatting of this note might be di fferent from the original. Case Management by PHUONG Sandhu at 01/16/15 1030 Author: PHUONG Sandhu Service: (none) Author Type: Attic Fans Mechanic Filed: 01/16/15 1042 Date of Service: 01/16/15 1030 Status: Signed Machine Fur Cleaner: PHUONG Sandhu (Attic Fans Mechanic) 01/16/15 1000 Discharge Planning Evaluation Admitting Diagnosis Near syncope, elevated tropinin, non-stemi, CKD Anticipated Disposition Facility Type detention facility TRIALS MANAGER met with Pt and discussed discharge planning, states she has concerns returning home at this time, as Pt resides alone. TRIALS MANAGER discussed rehab options, SNF vs Home Health vs Outpatient PT. Pt states her sister (Annie Tipton [phone] cell) assists with IADLs as Pt does not polo ojeda. Pt states she resides alone and has been doing ADLs on her own. Pt states she uses a 4WW with seat at home, then uses a cane when out of the home, stated, "I am a little vain" abou t using the 4WW in public. Pt is interested in [facility] [place], due to close proximity to her home. TRIALS MANAGER faxe d SNF referral. Pt is a 69 y.o. single female here for NSTEMI. Patient's PCP is: KI DE JESUS Patient's insurance:Medicare / O[employer] Health Plan - [employer] Coverage concerns: None at this time Medication coverage/concerns: None at this time Community resources utilized / needed: SNF Assistance in transportation: Pt sister or SNF facility van Identification of any specific education / training: Pending clinical course Barriers to Discharge / Alternative housing needed: May need SNF Anticipated DCP: Pending placement at [facility] [place] LUIS FOUNTAIN, Marriage Counselor [phone] cell Luisito Mejía - 01/16/2015 9:12 AM PDTFormatting of this note might be different from the or iginal. Progress Notes by Luisito Thomas MD at 01/16/15911 Author: Luisito Thomas MD Service: Nephrology Author Type: Physician Filed: 01/20/15 1907 Date of Service: 01/16/15911 Status: Signed Machine Fur Cleaner: Luisito Thomas MD (Physician) [facility] Service: NEPHROLOGY PROGRESS Note Cole Ernst 69 y.o. [phone] [id number] female [facility] Day: LOS: 2 days The patient is a 69 y.o. 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 Nephrology consulted for evaluation and management of ZULAY on ckd Lab Results Component Value Date BUN 13 01/16/2015 BUN 24 01/15/2015 BUN 28* 01/14/2015 BUN 33* 11/15/2014 BUN 42 12/05/2013 CREATININE 1.01* 01/16/2015 CREATININE 1.7* 01/15/2015 CREATININE 2.4* 01/14/2015 CREATININE 1.38* 11/15/2014 CREATININE 1.38 12/05/2013 ONSET ACUTE on chronic severity SEVERE, IMPROVING Associated with fluid electrolyte acid base imbalances RF: PRE RENAL/ POOR PO INTAKE/ NAUSEA/ VOMITING/ DIARRHEA/ LOW BP Patient seen and examined Says feel Better, STILL WITH LOOSE BM Denies cp, sob, nausea, vomiting, fever, headache, rash Past Medical History Diagnosis Date Stroke (HCC) Hyperlipidemia Hypertension Past Surgical History Procedure Laterality Date Liver transplant 192 Gallbladder surgery 1991 Splenectomy Prior to Admission medications Medication Sig Start Date End Date Taking? Authorizing Provider azaTHIOprine (IMURAN) 50 MG tablet Take 50 mg by mouth daily. Historical Provider Cholecalciferol 2000 UNITS CAPS Take 2,000 Units by mouth daily. Historical Provider cycloSPORINE (SANDIMMUNE) 25 MG capsule Take 75 mg by mouth 2 (two) times daily. Histo rical Provider fluticasone (FLONASE) 50 MCG/ACT nasal 1 spray by Each Nare route daily. Historical Pr ovider gabapentin (NEURONTIN) 400 MG capsule Take 400 mg by mouth 4 (four) times daily. Histo rical Provider HYDROcodone-acetaminophen (NORCO) 5-325 MG per tablet Take 1 tablet by mouth every 6 (six) hours as needed. Historical Provider levothyroxine (SYNTHROID, LEVOTHROID) 125 MCG tablet Take 125 mcg by mouth every morning b efore breakfast. Historical Provider metoprolol (LOPRESSOR) 100 MG tablet Take 100 mg by mouth 2 (two) times daily. Histori laith Provider pravastatin (PRAVACHOL) 10 MG tablet Take 10 mg by mouth nightly. Historical Provider vitamin B-12 (CYANOCOBALAMIN) 1000 MCG tablet Take 1,000 mcg by mouth daily. Historica l Provider methadone (DOLOPHINE) 10 MG tablet Take 10 mg by mouth 2 (two) times daily. Allergies Allergen Reactions Codeine Nausea and Vomiting Family History Problem Relation Age of Onset Stroke Brother Kidney disease Neg Hx Diabetes Father History Social History Marital Status: Spouse Name: N/A Number of Children: N/A Years of Education: N/A Occupational History Not on file. 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 Scheduled Medications azaTHIOprine 50 mg Oral Daily cefTRIAXone 1 g Intravenous Q24H cholecalciferol 2,000 Units Oral Daily cyanocobalamin 1,000 mcg Oral Daily cycloSPORINE 75 mg Oral BID fluticasone 1 spray Each Nare Daily folic acid (FOLVITE) IVPB 1 mg Intravenous Q24H Or multivitamin & minerals w iron/FA 1 tablet Oral Q24H gabapentin 400 mg Oral BID heparin (porcine) 5000 unit/0.5mL 5,000 Units Subcutaneous 2 times per day levothyroxine 125 mcg Oral QAM AC metoprolol 100 mg Oral BID pneumococcal 23-valent vaccine 0.5 mL Intramuscular Once Immunization thiamine (VITAMIN B1) IVPB 100 mg Intravenous Q24H Continuous Infusions sodium chloride (IV) 150 mL/hr at 01/16/15 0450 PRN Medications acetaminophen OR acetaminophen, diazepam, diazepam OR diazepam, hydrALAZINE, HYDROc odone-acetaminophen, HYDROcodone-acetaminophen, magnesium sulfate OR magnesium sulfate * *OR magnesium sulfate, ondansetron OR ondansetron, phosphorus OR sodium phosphate IVPB 20 mmol OR sodium phosphate IVPB 45 mmol, polyethylene glycol potassium chloride OR potassium chloride OR potassium chloride OR potassium chl oride OR potassium chloride OR potassium chloride Allergy: Allergies Allergen Reactions Codeine Nausea and Vomiting OBJECTIVE Vital Signs: BP 173/92 mmHg | Pulse 87 | Temp(Src) 97.7 F (36.5 C) (Oral) | Resp 18 | Ht 1.6 m (5' 3 ") | Wt 89.5 kg (197 lb 5 oz) | BMI 34.96 kg/m2 | SpO2 98% | ? No I&O Detailed Table: I/O last 3 completed shifts: In: 4808.8 [I.V.:4188.8; IV Piggyback:620] Out: 2500 [Urine:2500] Weight change: 1.049 kg (2 lb 5 oz) Examination: APPEARANCE: The patient is a pleasant lying in no apparent distress. VITALS: Reviewed as listed. HEAD: NC/AT. EYES: Non-icteric sclera. ENT: Buccal mucosa is MOIST. No gross ear or nasal problems noted. NECK: Supple. No raised JVD LUNGS: Clear to auscultation bilaterally. HEART: S1, S2, no pericardial rub noted. ABDOMEN: Full, soft, NT, Bowel sounds are present. EXTREMITIES: trace pedal edema noted. SKIN: Warm to touch. No rash or ecchymosis noted. NEUROLOGIC: No gross focal motor deficit noted. PSYCH: The patient is alert and oriented x 3, mood and affect looks ok BACK: no CVA tenderness noted LABS: Recent Results (from the past 24 hour(s)) Sodium, urine, random Collection Time: 01/15/15 3:25 PM Result Value Ref Range UR SODIUM,RANDOM 136 (H) 90 - 104 mmol/L CBC W/Auto Diff (Reflex to Manual) Collection Time: 01/16/15 3:21 AM Result Value Ref Range WBC 10.55 3.80 - 11.00 K/uL RBC 3.28 (L) 3.70 - 5.10 M/uL HGB 11.6 11.3 - 15.5 g/dL HCT 34.5 34.0 - 46.0 % MCV 105.1 (H) 80.0 - 100.0 fl MCH 35.3 (H) 27.0 - 34.0 pg MCHC 33.5 32.0 - 35.5 g/dL RDW SD 50.8 37 - 53 fl PLT 144 (L) 150 - 400 K/uL MPV 13.0 fl DIFF TYPE AUTOMATED NEUTROPHILS 37.99 % LYMPHOCYTES 43.49 % MONOCYTES 11.24 % EOSINOPHILS 5.97 % BASOPHILS 1.31 % NEUTROPHILS ABS 4.01 1.90 - 7.40 K/uL LYMPHOCYTES ABS 4.59 (H) 1.00 - 3.90 K/uL MONOCYTES ABS 1.19 (H) 0.00 - 0.80 K/uL EOSINOPHILS ABS 0.63 (H) 0.00 - 0.50 K/uL BASOPHILS ABS 0.14 (H) 0.00 - 0.10 K/uL MORPHOLOGY NORMAL RBC MORPH Diff Comment 2+ GIANT PLT Comprehensive Metabolic Panel Collection Time: 01/16/15 3:21 AM Result Value Ref Range SODIUM 138 135 - 143 mmol/L POTASSIUM 3.0 (L) 3.5 - 4.9 mmol/L CHLORIDE 104 99 - 109 mmol/L CO2 22 (L) 23 - 32 mmol/L ANION GAP AGAP 15 5 - 20 mmol/L GLUCOSE 82 65 - 99 mg/dL BUN 13 8 - 25 mg/dL CREATININE 1.01 (H) 0.50 - 1.00 mg/dL BUN/CREAT 13 CALCIUM 7.7 (L) 8.5 - 10.5 mg/dL TOTAL PROTEIN 7.1 6.3 - 8.2 g/dL Albumin 3.2 (L) 3.3 - 4.8 g/dL GLOBULIN 3.9 1.3 - 4.9 g/dL A/G 0.8 (L) 1.0 - 2.4 TBIL 0.4 0.1 - 1.5 mg/dL ALK PHOS 76 35 - 115 U/L AST 26 10 - 45 U/L ALT 19 10 - 65 U/L EGFR 58 (L) >60 mL/min/1.73m2 TSH Collection Time: 01/16/15 3:21 AM Result Value Ref Range TSH 18.97 (H) 0.45 - 5.10 uIU/mL Free T4 Collection Time: 01/16/15 3:21 AM Result Value Ref Range FREE T4 0.9 0.7 - 1.5 ng/dL Magnesium Collection Time: 01/16/15 3:21 AM Result Value Ref Range MAGNESIUM 1.2 (L) 1.7 - 2.4 mg/dL Phosphorus Collection Time: 01/16/15 3:21 AM Result Value Ref Range PHOSPHORUS 2.0 (L) 2.3 - 4.8 mg/dL IMAGING: Reviewed CXR 01/14/15 FINDINGS: Mediastinum -- cardiomegaly. Some vascular calcification. Lung markings are somewhat coarse.Atelectasis is probably confounding as the patient is hyp oinflated. No focal infiltrate or evidence of advanced pulmonary venous hypertension. Lung v olumes are symmetric although low. Degenerative change the spine and shoulders and there are extensive clips in the gallbladde r fossa and below the left hemidiaphragm. IMPRESSION: 1. Hypoinflated chest, but no evident infiltrate Patient's old records and labs were reviewed in detail and summarized. PROBLEM LIST Principal Problem: NSTEMI (non-ST elevated myocardial infarction) (HCC) Active Problems: ZULAY (acute kidney injury) (HCC) Liver replaced by transplant (HCC) Essential hypertension, benign CKD (chronic kidney disease), stage III Hypokalemia Immunosuppression (HCC) Leukocytosis, unspecified Macrocytosis without anemia Hypophosphatemia Other severe protein-calorie malnutrition (HCC) ASSESSMENT & PLAN ZULAY IMPROVED RENAL FUNCTION LIKELY SECONDARY TO Renal hypoperfusion PRE RENAL/ POOR PO INTAKE/ NAUSEA/ VOMITING/ DIARRH EA/ LOW BP RULED OUT HYDRONEPHROSIS PER CT SCAN REVIEWED RULED OUT RHABDOMYOLYSIS NL CPK IV FLUIDS KEEP MAP GREATER THAN 70 MM HG Hold Diuretics/ THADDEUS-I/ ARBS Urine studies REVIEWED Strict I & O, Daily weights Renal diet AVOID NSAIDS/ WALTON-2 INHIBITORS AVOID NEPHROTOXIC MEDS INCLUDING AMINOGLYCOSIDES/ IV CONTRAST Lab Results Component Value Date BUN 13 01/16/2015 BUN 24 01/15/2015 BUN 28* 01/14/2015 BUN 33* 11/15/2014 BUN 42 12/05/2013 CREATININE 1.01* 01/16/2015 CREATININE 1.7* 01/15/2015 CREATININE 2.4* 01/14/2015 CREATININE 1.38* 11/15/2014 CREATININE 1.38 12/05/2013 HYPOKALEMIA LIKELY DUE TO DIARRHEA REPLACE TO KEEP k GREATER THAN 3.8 Lab Results Component Value Date K 3.0* 01/16/2015 K 3.7 01/15/2015 K 2.8* 01/14/2015 S/P LIVER TXP AT [facility] IN 1991 IMMUNOSUPPRESSION ON CYCLOSPORIN 75 MG BID ON AZA 50 MG DAILY HYPOPHOSPHATEMIA IMPROVING REPLACE TO KEEP P GREATER THAN 2.5 REPEAT P LEVEL IN AM Lab Results Component Value Date PHOS 2.0* 01/16/2015 PHOS 1.5* 01/15/2015 PHOS 1.4* 01/14/2015 Abdominal pain / LEUCOCYTOSIS PER HOSPITALIST CT SCAN WITH ORAL CONTRAST DONE, PLAN FOR COLONOSCOPY Possible UTI pyuria on her urinalysis from [facility] on ceftriaxone CASE DISCUSSED IN DETAIL WITH PATIENT/ Care team / HOSPITALIST, ANSWERS ALL QUESTIONS IN DE TAIL, VERBALIZES UNDERSTANDING WILL SIGN OFF, CALL US PRN FOR ANY QUESTIONS, THANKS FOR THE CONSULT LUISITO THOMAS MD 01/16/2015 KI DE JESUS onversion Transactio n, Provider Unknown - 01/16/2015 5:06 AM PDT Nurse Progress Note by Michelle Paulson RN at 01/16/15505 Author: Michelle Paulson RN Service: (none) Author Type: Registered Nurse Filed: 01/16/15508 Date of Service: 01/16/15505 Status: Signed Machine Fur Cleaner: Michelle Paulson RN (Registered Nurse) Patient resting quietly t/o shift. High CIWA this shift =4. Patient c/o generalized pain, treated with PRN [place] per orders. Patient observed to be sle eping, following PRN medication and repositioning. Patient continues to be NSR-ST on tele. Vitals stable. Will continue to monitor patient. ose Maria Black MD - 01/15/2015 3:19 PM PDTFormatting of this note might be different from armando tellez original. Progress Notes by Jose Maria Espinal MD at 01/15/15 9265 Author: Jose Maria Espinal MD Service: Hospitalist Author Type: Physician Filed: 01/16/15 0925 Date of Service: 01/15/151518 Status: Signed Machine Fur Cleaner: Jose Maria Espinal MD (Physician) Related Notes: Original Note by Jose Maria Espinal MD (Physician) filed at 01/15/151939 [facility] Service: Hospitalist Progress Note Pt: Cole Ernst AGE/SEX: 69 y.o. female : 1945 ROOM: 4445/4445-1 History of Present Illness: " The patient is a 69 y.o. 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 Patient states that her doctor "cut her off cold turkey" of her methadone 3 wee ks ago. She states that since that time she has been having vomiting 8-10 episodes per day, diarrhea, 8-10 episodes per day, abdominal pain, poor appetite, generalized myalgias, and i nsomnia. She states that the vomiting and diarrhea have improved. However, today she was w alking across her apartment when she "collapsed. She states that she felt lightheaded prior to this, and sweaty. She did not lose consciousness. She states that she called out for h er neighbor who called EMS. Patient was taken to [facility] in [place]. Susie ent was noted to have a white count of 12,000, hemoglobin of 14, hematocrit 44, platelet cou nt 190, glucose 145, creatinine of 2.4, BUN of 28, potassium of 3.2, albumin of 3.4, CO2 25, calcium 8.6. Her troponin was borderline elevated at 0.76, patient had a lactic acid of 1. 4. Twelve-lead ECG showed normal sinus rhythm with rate of 75 and antrolateral T-wave inver alessandro. Patient was transferred here for higher level of care. Patient had borderline blood pressure. While at [facility] with systolic in the low 90s. Heart rate was in the 70s. Patient's previous creatinine was 1.38 on 11/15/14 and 1.25 on 06/04/13. Upon arrival here, patient was found to have a troponin which was elevated to 0.55. Twelve-lead ECG was unchanged. Patient was noted to have a creatinine of 2.4 here an d a white count of 16,000, here as well. ED physician and spoke with cardiology and patient was started on heparin for non-STEMI. Patient denies any chest pain, shortness of breath, headache. She states that she continues to have abdominal pain, which has been present for 3 weeks but is improved. S he states that she had abdominal CT done several days ago while in [place]. She also stat es that her vomiting and diarrhea have significantly improved. She denies any fevers, hemat emesis, melena, bright red blood per rectum, hematuria, dysuria, she denies any leg pain or swelling. No palpitations. She states she does have a history of "kidney disease" and was told that it was secondary to cyclosporine. However, she is not seen kidney specialist [facility] e her liver transplant.".....per admitting MD/Dr. Hartman. TODAY'S DATE: 01/15/2015 Hospital Day: LOS: 1 day SUBJECTIVE: Denies chest pain or shortness of breath. Systolic blood pressure elevated. Th e patient is doing well overall. Renal function has improved significant since admission wit h creatinine decreasing from 2.4 to 1.7. Electrolytes have been corrected. Leukocytosis is d ecreasing. Review of Systems: Review of Systems Constitutional: Negative for fever and chills. HENT: Negative for hearing loss. Eyes: Negative for blurred vision and double vision. Respiratory: Negative for cough and hemoptysis. Cardiovascular: Negative for chest pain and palpitations. Gastrointestinal: Negative for heartburn and nausea. Genitourinary: Negative for dysuria and urgency. Musculoskeletal: Negative for myalgias and neck pain. Skin: Negative for itching. Neurological: Negative for dizziness, tingling, tremors, seizures, loss of consciousness an d headaches. Endo/Heme/Allergies: Negative for polydipsia. Psychiatric/Behavioral: Negative for depression and suicidal ideas. Scheduled Medications azaTHIOprine 50 mg Oral Daily cefTRIAXone 1 g Intravenous Q24H cholecalciferol 2,000 Units Oral Daily cyanocobalamin 1,000 mcg Oral Daily cycloSPORINE 75 mg Oral BID fluticasone 1 spray Each Nare Daily folic acid (FOLVITE) IVPB 1 mg Intravenous Q24H Or multivitamin & minerals w iron/FA 1 tablet Oral Q24H gabapentin 400 mg Oral BID levothyroxine 125 mcg Oral QAM AC pneumococcal 23-valent vaccine 0.5 mL Intramuscular Once Immunization thiamine (VITAMIN B1) IVPB 100 mg Intravenous Q24H Continuous Infusions sodium chloride (IV) 150 mL/hr at 01/15/15 1429 PRN Medications acetaminophen OR acetaminophen, diazepam, diazepam OR diazepam, HYDROcodone-acetami nophen, HYDROcodone-acetaminophen, ondansetron OR ondansetron, polyethylene glycol Allergy: Allergies Allergen Reactions Codeine Nausea and Vomiting OBJECTIVE Vitals: Patient Vitals for the past 24 hrs: BP Temp Temp src Pulse Resp SpO2 Height Weight 01/15/15 1156 159/74 mmHg 98.4 F (36.9 C) Oral 81 16 96 % - - 01/15/15 0750 160/83 mmHg 98.2 F (36.8 C) Oral 82 16 97 % - - 01/15/15 0400 135/67 mmHg - - 84 - - - - 01/15/15 0351 135/67 mmHg 98.3 F (36.8 C) Oral 88 16 98 % - 90.8 kg (200 lb 2.8 oz) 01/14/15 2323 126/60 mmHg 98.6 F (37 C) Oral 81 16 97 % - - 01/14/15 215 - - - - - - - 89.6 kg (197 lb 8.5 oz) 01/14/152137 138/74 mmHg 98.4 F (36.9 C) Oral 79 18 94 % 1.6 m (5' 3") 89.6 kg (197 lb 8.5 oz) 01/14/152003 102/64 mmHg 99.3 F (37.4 C) Oral 87 - 97 % - - 01/14/15 1808 96/51 mmHg 99 F (37.2 C) Oral 79 14 98 % - - 01/14/151704 - - - - - - - 88.451 kg (195 lb) 01/14/15 1535 114/58 mmHg 99.7 F (37.6 C) - 78 17 94 % - - I&O Detailed Table: Intake/Output Summary (Last 24 hours) at 01/15/15 1519 Last data filed at 01/15/15 1130 Gross per 24 hour Intake 1640.83 ml Output 500 ml Net 1140.83 ml Patient Vitals for the past 96 hrs: Weight 01/15/15 0351 90.8 kg (200 lb 2.8 oz) 01/14/152153 89.6 kg (197 lb 8.5 oz) 01/14/15 2138 89.6 kg (197 lb 8.5 oz) 01/14/15 170 88.451 kg (195 lb) Hemodynamics Last 24hrs: Examination: Physical Exam Constitutional: She is oriented to person, place, and time. She appears well-developed. HENT: Head: Normocephalic. Mouth/Throat: Oropharynx is clear and moist. No oropharyngeal exudate. Eyes: Pupils are equal, round, and reactive to light. No scleral icterus. Neck: Normal range of motion. No tracheal deviation present. Cardiovascular: Normal rate and regular rhythm. No murmur heard. Pulmonary/Chest: Effort normal and breath sounds normal. No respiratory distress. She has n o wheezes. Abdominal: Soft. Bowel sounds are normal. She exhibits no distension. There is no tendernes s. Musculoskeletal: Normal range of motion. She exhibits no edema or tenderness. Neurological: She is alert and oriented to person, place, and time. No cranial nerve defici t. Coordination normal. Skin: Skin is warm and dry. She is not diaphoretic. No pallor. Psychiatric: She has a normal mood and affect. Her behavior is normal. LABS: Recent Labs Lab 01/15/15 0632 01/14/15 1548 WBC 13.11* 16.19* HGB 11.2* 14.6 HCT 34.4 42.7 PLT 160 209 NEUTOPHILPCT 50.65 -- MONOPCT 9.60 -- Recent Labs Lab 01/15/15 0632 01/14/15 1548 NA 143 140 K 3.7 2.8* CL 110* 100 CO2 24 29 BUN 24 28* CREATININE 1.7* 2.4* PROT 7.0 9.3* BILITOT 0.4 0.4 ALT 29 38 AST 35 39 Phosphorus: Recent Labs Lab 01/15/15 0632 PHOS 1.5* Recent Labs Lab 01/15/15 0632 01/14/15 1549 MG 1.7 1.9 Recent Labs Lab 01/14/15 1549 AMYLASE 85 Recent Labs Lab 01/14/15 1549 LIPASE 559* Recent Labs Lab 01/14/15 1548 APTT 26 INR 1.3 Recent Labs Lab 01/15/15 0623 TSH 9.51* Recent Labs Lab 01/15/15 0632 01/15/15 0051 01/14/15 1548 CKTOTAL -- -- 151 TROPONINI 0.484* 0.509* 0.555* CKMBINDEX -- -- 2.6 Diagnostic: Ct Abdomen Pelvis Without Contrast 01/14/2015 HISTORY: 69 year-old female with abdominal pain TECHNIQUE: CT through the abdo men and pelvis. Performed without the administration of IV contrast. Examination performed w ith enteric contrast. Prior study for comparison: None FINDINGS: Composite Bond Technician 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 deg enerative changes of the spine, interventional changes and clips in the gallbladder fossa an d below the left hemidiaphragm.. Lung bases demonstrate atelectasis and some chronic fibrot ic appearing changes to the lower lung muñoz-symmetric. No consolidation or effusion. Bone s are without aggressive lesion or fracture. Nonaggressive and degenerative changes with dem ineralization- not uncommon for age. Soft tissue windows of the abdomen reveal no fluid col lection the gallbladder fossa. Normal pancreas, liver-the spleen is absent. Kidneys are with out stone or dense lesion with a low-density cystic structure arising from the posterior cor emeli of the left kidney on image 33-about 14 mm in size. Vasculopathy the aorta and branch v essels. Extensive diverticulosis of the sigmoid bowel, without evidence of abnormal fluid c ollection in only minimal reticular changes in the adjacent fat. No hernia. No pelvic sidew all or other lymphadenopathy. Pelvic vascular and pericolonic calcifications, but no hydrou reter or proven stones within either ureter There is diffuse lipomatous infiltration of the ileocecal junction. The appendix is not seen. There may be some slight infiltrative wall t hickening of a segment of the colon on image 32 series 3, but no obstruction 01/14/2015 1. Irregular or infiltrative segment of wall thickening of a short segment of the the proximal large bowel near the hepatic flexure. No obstruction. Given the patient's age-would correlate with colonoscopy. No extraluminal lesion, does not seem masslike-but mal ignancy cannot be excluded. A short segment colitis or infiltration is a differential consid eration 2. Extensive diverticulosis of the sigmoid bowel, but no high-grade inflammatory ch rodriguez or extraluminal fluid collection Electronically signed by Gary Wong MD on 10:11 PM Xr Chest 1 View 01/14/2015 HISTORY: 69 years old female, infection TECHNIQUE: Computer enhanced AP uprigh t portable radiographic examination of the chest, 14 January 2015. Prior study for compariso n -- none FINDINGS: Mediastinum -- cardiomegaly. Some vascular calcification. Lung markin gs are somewhat coarse.Atelectasis is probably confounding as the patient is hypoinflated. N o focal infiltrate or evidence of advanced pulmonary venous hypertension. Lung volumes are s ymmetric although low. Degenerative change the spine and shoulders and there are extensive clips in the gallbladder fossa and below the left hemidiaphragm. 01/14/2015 1. Hypoinflated chest, but no evident infiltrate Echo Cardiac Adult Complete 01/15/2015 Patient Name: COLE ERNST Date of : 1945 Performing Physician: Gil Coronel MD ------REPORT ADDENDED------ INDICATIONS abnormal ekg CONCL USIONS 1. Indication for study and thus clinical question is unknown. Minor irre gularities as below. FINDINGS -------- [no group]: Indication for study and thus clinical q uestion is unknown. Results as below. ECG rhythm: Sinus rhythm. Study: A 2-dimensional trans thoracic echocardiogram with m-mode, spectral and color flow Doppler was perfomed. Study: T his was a technically adequate study. Left Ventricle: Overall left ventricular systolic func tion is normal with, an EF between 65 - 70 %. Left Ventricle: The left ventricle cavity siz e is normal. Left Ventricle: Left ventricular wall thickness is normal. Left Ventricle: Ps eudonormal LV diastolic filling pattern, consistent with elevated LA pressure and moderate d ysfunction (Grade II). Right Ventricle: The right ventricle is normal in size. Left Atrium: The left atrium is markedly dilated. Right Atrium: The right atrial size is normal. Aortic V alve: The aortic valve is trileaflet and appears structurally normal. Aortic Valve: There i s no evidence of aortic regurgitation. Aortic Valve: There is no evidence of aortic stenosi s. Mitral Valve: The mitral valve is normal. Mitral Valve: No mitral regurgitation. Tricusp id Valve: The tricuspid valve appears structurally normal. Tricuspid Valve: Mild tricuspid regurgitation present. Tricuspid Valve: There is mild pulmonary hypertension. Tricuspid Va lve: The right ventricular systolic pressure (pulmonary artery systolic pressure), as measur ed by Doppler, is 38.21mmHg. Pulmonic Valve: The pulmonic valve is normal. Pericardium: Ante rior echo free space present. IVC/Hepatic Veins: The IVC is normal size (1.5-2.5cm) and fatoumata apses >50% with sniff, consistent with central venous pressures of 5-10mmHg. Pulmonary Arter y: The pulmonary artery is moderately dilated. MEASUREMENTS Ao asc: 3.02 cm Ao Diam: 2.92 cm IVC: 2.23 cm LA Diam: 4.49 cm LA Major: 6.03 cm EDV(Teich): 74.0 3 ml IVSd: 1.12 cm LVIDd: 4.09 cm LVPWd: 1.04 cm LVOT Diam: 1.95 cm %FS: 37.64 % E F(Teich): 68.20 % ESV(Teich): 23.53 ml IVSs: 1.19 cm LVIDs: 2.55 cm LVPWs: 1.50 cm SV(Teich): 50.49 ml RA Major: 4.95 cm RVIDd: 2.83 cm LAESV(A-L): 78.59 ml LAESV Ind ex (A-L): 40.51 ml/m2 LAAs A2C: 24.56 cm2 LAESV A-L A2C: 76.32 ml LAESV MOD A2C: 73. 52 ml LALs A2C: 6.71 cm LAAs A4C: 24.96 cm2 LAESV A-L A4C: 79.86 ml LAESV MOD A4C: 7 7.20 ml LALs A4C: 6.62 cm Ao Diam: 2.73 cm AV Cusp: 2.27 cm LA Diam: 4.29 cm LA/Ao: 1.57 D-E [place]: 2.11 cm E-F [place]: 0.09 m/s EPSS: 0.48 cm HR: 77.41 BPM AV ma xP.05 mmHg AV meanP.21 mmHg AV Vmax: 1.73 m/s AV Vmean: 1.25 m/s AV VTI: 34.68 cm BAYRON Vmax: 2.07 cm2 BAYRON (VTI): 1.85 cm2 LVCI Dopp: 2.60 l/minm2 LVCO Dopp: 5 .05 l/min HR: 78.81 BPM LVOT maxP.75 mmHg LVOT meanP.84 mmHg LVSI Dopp: 33.0 8 ml/m2 LVSV Dopp: 64.18 ml LVOT Vmax: 1.19 m/s LVOT Vmean: 0.77 m/s LVOT VTI: 21.32 cm MCO: 394.46 ms MV A Billy: 0.39 m/s MV DecT: 206.91 ms MV E Billy: 0.66 m/s MV E/A R atio: 1.69 MV PHT: 48.49 ms MVA By PHT: 4.53 cm2 MV A Dur: 114.18 ms IVRT: 96.88 ms Septal e': 0.06 m/s Septal E/e': 9.92 Lateral e': 0.11 m/s Lateral E/e': 6.00 P Vein D: 0.62 m/s P Vein S/D Ratio: 0.87 P Vein S: 0.54 m/s HR: 76.72 BPM PV maxP.32 mmHg PV meanP.85 mmHg PV Vmax: 1.03 m/s PV Vmean: 0.62 m/s PV VTI: 13.14 cm RAP: 10 mmHg RVSP: 38.20 mmHg TR maxP.20 mmHg TR Vmax: 2.65 m/s TV A Billy: 0.66 m/s TV Dec [place]: 4.36 m/s2 TV Dec Time: 184.41 ms TV E Billy: 0.80 m/s TV E/A Rat io: 1.21 Clinical Services Professional: NEDRA Authenticated by: Gil Coronel MD Report Date/Time: 01-15 09:12:05 01/15/2015 1. Indication for study and thus clinical question is unknown. Minor irregulari ties as below. Past Medical History Diagnosis Date Stroke (HCC) Hyperlipidemia Hypertension Past Surgical History Procedure Laterality Date Liver transplant 192 Gallbladder surgery 1991 Splenectomy PROBLEM LIST Principal Problem: NSTEMI (non-ST elevated myocardial infarction) (HCC) Active Problems: ZULAY (acute kidney injury) (HCC) Liver replaced by transplant (HCC) Essential hypertension, benign CKD (chronic kidney disease), stage III Hypokalemia Immunosuppression (HCC) Leukocytosis, unspecified Macrocytosis without anemia Hypophosphatemia ASSESSMENT & PLAN 69-year-old female with the followin. Elevated troponins, question underlying non ST elevation SC. Continue current medical th erapy. I appreciate cardiology input and recommendations. 2. ZULAY with underlying chronic kidney disease. Continue judicious IV fluids. Renal function improving. Continue to replace electrolytes. 3. Leukocytosis with underlying immunocompromised state. Currently on empiric ceftriaxone u ntil finalized blood cultures are available. Please see Dr. Tadeo's input and recommendatio ns. 4. Some abdominal discomfort on admission. Evidence of irregular infiltrate and segmental w all thickening of a short segment of the proximal large bowel near the hepatic flexure. Abdo john discomfort has improved since yesterday. Will GI consultation. 5. History of previous liver transplant. Continue immunosuppressive therapy. Liver function test within normal limits. 6. Hypertension history: Systolic blood pressure shows increasing trend from evident hypote nsion on admission. We might restart the patient's Coreg. 7. History of daily alcohol usage. Continue thiamine replacement and folate. Currently, no signs or symptoms of alcohol withdrawal. 8. DVT prophylaxis: SCDs. Will add subcutaneous heparin. Jose Maria Espinal MD 01/15/2015 3:19 PM onversion Transa ction, Provider Unknown - 01/15/2015 2:30 PM PDT Progress Notes by Ronda Michaels RD at 01/15/15 1430 Author: Ronda Michaels RD Service: (none) Author Type: Registered Dietitian Filed: 01/15/15 1438 Date of Service: 01/15/151429 Status: Signed Machine Fur Cleaner: Ronda Michaels RD (Registered Dietitian) 01/15/15 1904 Subjective Timepoint Admit Pt c/o In to see pt admitted for NSTEMI. Pt triggered for unintentional wt loss and poor po intake. Pt reports UBW is 210#, noticed wt loss over the last 3 weeks as po intake has been very poor during that time as well. Has been only able to tolerate crackers and chicken bro th couple times per day. Pt reports she feels hungry right now. Reported by Patient Diet Experience Self-selected diet(s) followed Pt states prior to feeling sick 3 weeks ago was typically ea ting 3 meals per day (B,L, D). Appetite was very good. Typical breakfast includes eggs and toast with gatorade to drink. Attempted to retreive further diet hx, pt unable to provide in formation at this time, states "I just can't think about it right now." Fluid / Beverage Intake Oral Fluids Amount NS @ 150 ml/hr. Liquid Meal Replacement or Supplement Pt may benefit from supplements once diet advances if po intake remains inadequate. Food Intake Type of Food / Meals NPO Micronutrient Intake Vitamin Intake D;B12;Folate;Thiamin Mineral / Element Intake Potassium;Chloride;Sodium Nutrition-Focused Physical Findings Overall Appearance Pt appears overweight. Body Language Pt engaged in conversation. Extremities, Muscles and Bones Pt denies edema. Digestive System (Mouth to Rectum) Pt denies swallow problems. Skin Intact Anthropometrics Weight change Pt reports UBW of 210#, wt loss over 3 weeks indicates significant wt loss of 7.1%. BMI of 34.5 indicates Class 1 obesity. Used admit wt of 88.4 kg as pt reports it was not a stated wt. Biochemical data, medical tests, and procedures reviewed Biochemical data, medical tests, and procedures reviewed BG (H) 109, Cr (H) 1.7, Phos (L) 1 .5- on phos. Estimated Energy Needs Total Energy Estimated Needs 6874-4778 kcal Method for Estimating Needs 25-30 kcal/kg based on adjusted body wt of 61.3 kg Estimated Protein Needs Total Protein Estimated Needs 74-80 g Method for Estimating Needs 1.2-1.3 g/kg based on adjusted body wt of 61.3 kg Recommendations Recommended energy needs Recommend to ADAT as tolerated to cardiac diet when indicated. Enc ourage po intake once diet advances, small frequent meals. Plan for supplements as needed if po intake inadequate, pt likes chocolate flavor. Continue to monitor. Nutritional Risk Nutritional risk Moderate Follow up date 01/20/15 Malnutrition Evaluation Estimated energy intake time frame 1 Month (3 weeks) Estimated % energy intake last 1 month (!) 50 % RD Assessed Weight 88.4 kg (194 lb 14.2 oz) Weight Loss time frame 1 Week (3 weeks) Weight 1 week ago 95.255 kg (210 lb) % weight loss from 1 week ago (!) -7.2 % Malnutrition in the Context Of Acute Illness Clinical Characteristics indicative of severe malnutrition 50% or less of EER within 5 days ;>5% weight loss over 1 month (>5% wt loss over 3 weeks.) Protein-Calorie Malnutrition Type (!) Severe Ronda Michaels RD Luisito Mejía - 01/15/2015 10:43 AM PDTFormatting of this note might be different from the or iginal. Progress Notes by Luisito Thomas MD at 01/15/15 1043 Author: Luisito Thomas MD Service: Nephrology Author Type: Physician Filed: 01/20/15 190 Date of Service: 01/15/15 1043 Status: Signed Machine Fur Cleaner: Luisito Thomas MD (Physician) [facility] Service: NEPHROLOGY PROGRESS Note Cole Ernst 69 y.o. [id number] [id number] female [facility] Day: LOS: 1 day The patient is a 69 y.o. 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 Nephrology consulted for evaluation and management of ZULAY on ckd Lab Results Component Value Date BUN 24 01/15/2015 BUN 28* 01/14/2015 BUN 33* 11/15/2014 BUN 42 12/05/2013 BUN 29 06/04/2013 CREATININE 1.7* 01/15/2015 CREATININE 2.4* 01/14/2015 CREATININE 1.38* 11/15/2014 CREATININE 1.38 12/05/2013 CREATININE 1.25 06/04/2013 ONSET ACUTE on chronic severity SEVERE, worsening Associated with fluid electrolyte acid base imbalances RF: PRE RENAL/ POOR PO INTAKE/ NAUSEA/ VOMITING/ DIARRHEA/ LOW BP Patient seen and examined Says feel weak but better Denies cp, sob, nausea, vomiting, diarrhea, fever, headache, rash, cough Past Medical History Diagnosis Date Stroke (HCC) Hyperlipidemia Hypertension Past Surgical History Procedure Laterality Date Liver transplant 192 Gallbladder surgery 1991 Splenectomy Prior to Admission medications Medication Sig Start Date End Date Taking? Authorizing Provider azaTHIOprine (IMURAN) 50 MG tablet Take 50 mg by mouth daily. Historical Provider Cholecalciferol 2000 UNITS CAPS Take 2,000 Units by mouth daily. Historical Provider cycloSPORINE (SANDIMMUNE) 25 MG capsule Take 75 mg by mouth 2 (two) times daily. Histo rical Provider fluticasone (FLONASE) 50 MCG/ACT nasal 1 spray by Each Nare route daily. Historical Pr ovider gabapentin (NEURONTIN) 400 MG capsule Take 400 mg by mouth 4 (four) times daily. Histo rical Provider HYDROcodone-acetaminophen (NORCO) 5-325 MG per tablet Take 1 tablet by mouth every 6 (six) hours as needed. Historical Provider levothyroxine (SYNTHROID, LEVOTHROID) 125 MCG tablet Take 125 mcg by mouth every morning b efore breakfast. Historical Provider metoprolol (LOPRESSOR) 100 MG tablet Take 100 mg by mouth 2 (two) times daily. Histori laith Provider pravastatin (PRAVACHOL) 10 MG tablet Take 10 mg by mouth nightly. Historical Provider vitamin B-12 (CYANOCOBALAMIN) 1000 MCG tablet Take 1,000 mcg by mouth daily. Historica l Provider methadone (DOLOPHINE) 10 MG tablet Take 10 mg by mouth 2 (two) times daily. Allergies Allergen Reactions Codeine Nausea and Vomiting Family History Problem Relation Age of Onset Stroke Brother Kidney disease Neg Hx Diabetes Father History Social History Marital Status: Spouse Name: N/A Number of Children: N/A Years of Education: N/A Occupational History Not on file. 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 Scheduled Medications azaTHIOprine 50 mg Oral Daily cefTRIAXone 1 g Intravenous Q24H cholecalciferol 2,000 Units Oral Daily cyanocobalamin 1,000 mcg Oral Daily cycloSPORINE 75 mg Oral BID fluticasone 1 spray Each Nare Daily folic acid (FOLVITE) IVPB 1 mg Intravenous Q24H Or multivitamin & minerals w iron/FA 1 tablet Oral Q24H gabapentin 400 mg Oral BID levothyroxine 125 mcg Oral QAM AC pneumococcal 23-valent vaccine 0.5 mL Intramuscular Once Immunization sodium phosphate 30 mmol Intravenous Once thiamine (VITAMIN B1) IVPB 100 mg Intravenous Q24H Continuous Infusions sodium chloride (IV) 150 mL/hr at 01/14/15 7103 PRN Medications acetaminophen OR acetaminophen, diazepam, diazepam OR diazepam, HYDROcodone-acetami nophen, ondansetron OR ondansetron, polyethylene glycol Allergy: Allergies Allergen Reactions Codeine Nausea and Vomiting OBJECTIVE Vital Signs: BP 160/83 mmHg | Pulse 82 | Temp(Src) 98.2 F (36.8 C) (Oral) | Resp 16 | Ht 1.6 m (5' 3 ") | Wt 90.8 kg (200 lb 2.8 oz) | BMI 35.47 kg/m2 | SpO2 97% | ? No I&O Detailed Table: I/O last 3 completed shifts: In: 1640.8 [I.V.:1020.8; IV Piggyback:620] Out: - Weight change: Examination: APPEARANCE: The patient is a pleasant lying in no apparent distress. VITALS: Reviewed as listed. HEAD: NC/AT. EYES: Non-icteric sclera. ENT: Buccal mucosa is MOIST. No gross ear or nasal problems noted. NECK: Supple. No raised JVD LUNGS: Clear to auscultation bilaterally. HEART: S1, S2, no pericardial rub noted. ABDOMEN: Full, soft, NT, Bowel sounds are present. EXTREMITIES: trace pedal edema noted. SKIN: Warm to touch. No rash or ecchymosis noted. NEUROLOGIC: No gross focal motor deficit noted. PSYCH: The patient is alert and oriented x 3, mood and affect looks ok BACK: no CVA tenderness noted LABS: Recent Results (from the past 24 hour(s)) ED INFORMATION EXCHANGE Collection Time: 01/14/15 3:28 PM Result Value Ref Range GENA PRC GENA CARE PLAN Troponin I, Lab Collection Time: 01/14/15 3:48 PM Result Value Ref Range TROPONIN I 0.555 (H) 0.00 - 0.10 ng/mL Cardiac Panel Collection Time: 01/14/15 3:48 PM Result Value Ref Range WBC 16.19 (H) 3.80 - 11.00 K/uL RBC 4.17 3.70 - 5.10 M/uL HGB 14.6 11.3 - 15.5 g/dL HCT 42.7 34.0 - 46.0 % MCV 102.3 (H) 80.0 - 100.0 fl MCH 35.0 (H) 27.0 - 34.0 pg MCHC 34.2 32.0 - 35.5 g/dL RDW SD 49.9 37 - 53 fl PLT 209 150 - 400 K/uL MPV 11.1 fl MORPHOLOGY 1+ DIFF TYPE MANUAL Neutrophils Manual 58 % Lymphocytes Manual 32 % Monocytes Manual 9 % Eosinophils Manual 1 % Neutrophils Absolute 9.39 (H) 1.90 - 7.40 K/uL Lymphocytes Absolute 5.18 (H) 1.00 - 3.90 K/uL Monocytes Absolute 1.46 (H) 0.00 - 0.80 K/uL Eosinophils Absolute 0.16 0.00 - 0.50 K/uL SODIUM 140 135 - 143 mmol/L POTASSIUM 2.8 (L) 3.5 - 4.9 mmol/L CHLORIDE 100 99 - 109 mmol/L CO2 29 23 - 32 mmol/L ANION GAP AGAP 14 5 - 20 mmol/L GLUCOSE 107 (H) 65 - 99 mg/dL BUN 28 (H) 8 - 25 mg/dL CREATININE 2.4 (H) 0.50 - 1.00 mg/dL BUN/CREAT 12 CALCIUM 8.1 (L) 8.5 - 10.5 mg/dL TOTAL PROTEIN 9.3 (H) 6.3 - 8.2 g/dL Albumin 3.3 3.3 - 4.8 g/dL GLOBULIN 6.0 (H) 1.3 - 4.9 g/dL A/G 0.5 (L) 1.0 - 2.4 TBIL 0.4 0.1 - 1.5 mg/dL ALK PHOS 129 (H) 35 - 115 U/L AST 39 10 - 45 U/L ALT 38 10 - 65 U/L EGFR 21 (L) >60 mL/min/1.73m2 CPK 151 30 - 240 U/L INR 1.3 APTT 26 23 - 32 seconds MMB 3.9 (H) 0.5 - 3.6 ng/mL CK-MB Index 2.6 Lipase Collection Time: 01/14/15 3:49 PM Result Value Ref Range LIPASE 559 (H) 73 - 393 U/L Amylase Collection Time: 01/14/15 3:49 PM Result Value Ref Range AMYLASE 85 25 - 115 U/L Magnesium Collection Time: 01/14/15 3:49 PM Result Value Ref Range MAGNESIUM 1.9 1.7 - 2.4 mg/dL Phosphorus Collection Time: 01/14/15 3:49 PM Result Value Ref Range PHOSPHORUS 1.4 (L) 2.3 - 4.8 mg/dL Uric acid Collection Time: 01/14/15 3:49 PM Result Value Ref Range URIC ACID 9.0 (H) 2.2 - 7.1 mg/dL EKG Collection Time: 01/14/15 4:01 PM Result Value Ref Range Ventricular Rate 79 BPM Atrial Rate 79 BPM P-R Interval 132 ms QRS Duration 90 ms Q-T Interval 392 ms QTC Calculation (Bezet) 449 ms Calculated P [place] -13 degrees Calculated R [place] -27 degrees Calculated T [place] 118 degrees Diagnosis Normal sinus rhythm Left ventricular hypertrophy with repolarization abnormality Abnormal ECG No previous ECGs available This ECG contains Unconfirmed Interpretation Statements. See ED Record for Physician Inter pretation. Confirmed by MUSE READ ONLY, -COMPUTER ([id number]), film editor Shala Gramajo ([id number]) on 01/14/2015 11:17 :50 PM Lactic acid, plasma Collection Time: 01/14/15 7:07 PM Result Value Ref Range LACTIC ACID 1.1 0.4 - 2.0 mmol/L CRP Collection Time: 01/14/15 7:07 PM Result Value Ref Range CRP 0.5 (H) <0.5 mg/dL ESR Collection Time: 01/14/15 7:07 PM Result Value Ref Range ESR 42 (H) 0 - 30 mm/Hr Procalcitonin Collection Time: 01/14/15 7:07 PM Result Value Ref Range PROCALCITONIN 0.29 <0.5 ng/mL MRSA by PCR Collection Time: 01/14/15 7:17 PM Result Value Ref Range SOURCE NARES(NOSE) MRSA PCR NEGATIVE NEGATIVE Troponin I Collection Time: 01/15/15 12:51 AM Result Value Ref Range TROPONIN I 0.509 (H) 0.00 - 0.10 ng/mL TSH Collection Time: 01/15/15 6:23 AM Result Value Ref Range TSH 9.51 (H) 0.45 - 5.10 uIU/mL Troponin I Collection Time: 01/15/15 6:32 AM Result Value Ref Range TROPONIN I 0.484 (H) 0.00 - 0.10 ng/mL C3 and C4 complement Collection Time: 01/15/15 6:32 AM Result Value Ref Range COMPLEMENT C3 93 90 - 180 mg/dL COMPLEMENT C4 19.4 10 - 40 mg/dL CBC W/Auto Diff (Reflex to Manual) Collection Time: 01/15/15 6:32 AM Result Value Ref Range WBC 13.11 (H) 3.80 - 11.00 K/uL RBC 3.27 (L) 3.70 - 5.10 M/uL HGB 11.2 (L) 11.3 - 15.5 g/dL HCT 34.4 34.0 - 46.0 % MCV 105.2 (H) 80.0 - 100.0 fl MCH 34.2 (H) 27.0 - 34.0 pg MCHC 32.5 32.0 - 35.5 g/dL RDW SD 50.3 37 - 53 fl PLT 160 150 - 400 K/uL MPV 11.1 fl DIFF TYPE AUTOMATED NEUTROPHILS 50.65 % LYMPHOCYTES 37.06 % MONOCYTES 9.60 % EOSINOPHILS 1.30 % BASOPHILS 1.39 % NEUTROPHILS ABS 6.64 1.90 - 7.40 K/uL LYMPHOCYTES ABS 4.86 (H) 1.00 - 3.90 K/uL MONOCYTES ABS 1.26 (H) 0.00 - 0.80 K/uL EOSINOPHILS ABS 0.17 0.00 - 0.50 K/uL BASOPHILS ABS 0.18 (H) 0.00 - 0.10 K/uL Comprehensive Metabolic Panel Collection Time: 01/15/15 6:32 AM Result Value Ref Range SODIUM 143 135 - 143 mmol/L POTASSIUM 3.7 3.5 - 4.9 mmol/L CHLORIDE 110 (H) 99 - 109 mmol/L CO2 24 23 - 32 mmol/L ANION GAP AGAP 13 5 - 20 mmol/L GLUCOSE 109 (H) 65 - 99 mg/dL BUN 24 8 - 25 mg/dL CREATININE 1.7 (H) 0.50 - 1.00 mg/dL BUN/CREAT 14 CALCIUM 7.4 (L) 8.5 - 10.5 mg/dL TOTAL PROTEIN 7.0 6.3 - 8.2 g/dL Albumin 2.6 (L) 3.3 - 4.8 g/dL GLOBULIN 4.3 1.3 - 4.9 g/dL A/G 0.6 (L) 1.0 - 2.4 TBIL 0.4 0.1 - 1.5 mg/dL ALK PHOS 92 35 - 115 U/L AST 35 10 - 45 U/L ALT 29 10 - 65 U/L EGFR 32 (L) >60 mL/min/1.73m2 Magnesium Collection Time: 01/15/15 6:32 AM Result Value Ref Range MAGNESIUM 1.7 1.7 - 2.4 mg/dL Phosphorus Collection Time: 01/15/15 6:32 AM Result Value Ref Range PHOSPHORUS 1.5 (L) 2.3 - 4.8 mg/dL C diff toxin by PCR (TAT 3 hr in house) Collection Time: 01/15/15 6:52 AM Result Value Ref Range Toxigenic C Difficile NEGATIVE NEGATIVE 027 NAP1 BI 027 NAP1 BI PRESUMPTIVE NEGATIVE Echo cardiac adult complete Collection Time: 01/15/15 7:33 AM Result Value Ref Range LV EF 70 50 - 70 % IMAGING: Reviewed CXR 01/14/15 FINDINGS: Mediastinum -- cardiomegaly. Some vascular calcification. Lung markings are somewhat coarse.Atelectasis is probably confounding as the patient is hyp oinflated. No focal infiltrate or evidence of advanced pulmonary venous hypertension. Lung v olumes are symmetric although low. Degenerative change the spine and shoulders and there are extensive clips in the gallbladde r fossa and below the left hemidiaphragm. IMPRESSION: 1. Hypoinflated chest, but no evident infiltrate Patient's old records and labs were reviewed in detail and summarized. PROBLEM LIST Principal Problem: NSTEMI (non-ST elevated myocardial infarction) (HCC) Active Problems: ZULAY (acute kidney injury) (HCC) Liver replaced by transplant (HCC) Essential hypertension, benign CKD (chronic kidney disease), stage III Hypokalemia Immunosuppression (HCC) Leukocytosis, unspecified Macrocytosis without anemia Hypophosphatemia ASSESSMENT & PLAN ZULAY LIKELY SECONDARY TO Renal hypoperfusion PRE RENAL/ POOR PO INTAKE/ NAUSEA/ VOMITING/ DIAR BRIANDA/ LOW BP RULED OUT HYDRONEPHROSIS PER CT SCAN REVIEWED RULED OUT RHABDOMYOLYSIS NL CPK IV FLUIDS KEEP MAP GREATER THAN 70 MM HG Hold Diuretics/ THADDEUS-I/ ARBS Urine studies REVIEWED Strict I & O, Daily weights Daily RFP Renal diet AVOID NSAIDS/ WALTON-2 INHIBITORS AVOID NEPHROTOXIC MEDS INCLUDING AMINOGLYCOSIDES/ IV CONTRAST Assess daily for need for hd Dose all meds for crcl less than 20 mls/min Lab Results Component Value Date BUN 24 01/15/2015 BUN 28* 01/14/2015 BUN 33* 11/15/2014 BUN 42 12/05/2013 BUN 29 06/04/2013 CREATININE 1.7* 01/15/2015 CREATININE 2.4* 01/14/2015 CREATININE 1.38* 11/15/2014 CREATININE 1.38 12/05/2013 CREATININE 1.25 06/04/2013 HYPOKALEMIA LIKELY DUE TO DIARRHEA REPLACE TO KEEP k GREATER THAN 3.8 Lab Results Component Value Date K 3.7 01/15/2015 K 2.8* 01/14/2015 K 4.4 11/15/2014 S/P LIVER TXP AT [facility] IN 1991 IMMUNOSUPPRESSION ON CYCLOSPORIN 75 MG BID ON AZA 50 MG DAILY HYPOPHOSPHATEMIA REPLACE TO KEEP P GREATER THAN 2.5 REPEAT P LEVEL IN AM Lab Results Component Value Date PHOS 1.5* 01/15/2015 PHOS 1.4* 01/14/2015 Abdominal pain / LEUCOCYTOSIS PER HOSPITALIST CT SCAN WITH ORAL CONTRAST DONE Possible UTI pyuria on her urinalysis from [facility] on ceftriaxone CASE DISCUSSED IN DETAIL WITH PATIENT/ Care team / HOSPITALIST, ANSWERS ALL QUESTIONS IN D ETAIL, VERBALIZES UNDERSTANDING LUISITO THOMAS MD 01/15/2015 [facility] DE JESUS onversion Transactio n, Provider Unknown - 01/14/2015 11:16 PM PDT Nurse Progress Note by Giovanna Bejarano RN at 01/14/152315 Author: Giovanna Bejarano RN Service: (none) Author Type: Registered Nurse Filed: 01/14/152316 Date of Service: 01/14/152315 Status: Signed Machine Fur Cleaner: Giovanna Bejarano RN (Registered Nurse) Called Dr. Riggins to clarify if heparin gtt should be continued after CT results. Order rec eived not to restart heparin drip at this time. ohnmaciej davila, Jazz Caceres RP - 01/14/2015 10:27 PM PDTFormatting of this note might be different from t he original. Progress Notes by Jazz Rahman RPH at 01/14/152226 Author: Jazz Rahman RPH Service: (none) Author Type: Pharmacist Filed: 01/14/152226 Date of Service: 01/14/152226 Status: Signed Machine Fur Cleaner: Jazz Rahman RPH (Pharmacist) Clinical Pharmacy Note - Renal Dose Adjustment Cole Ernst 69 y.o. female Ht Readings from Last 1 Encounters: 01/14/15 1.6 m (5' 3") Wt Readings from Last 1 Encounters: 01/14/15 89.6 kg (197 lb 8.5 oz) CREATININE Date Value Ref Range Status 01/14/2015 2.4* 0.50 - 1.00 mg/dL Final Comment: Testing performed at [facility];[address] [place] [address];[place] [address] CREATININE: 2.4 mg/dL ABNORMAL (01/14/15 1548) Estimated creatinine clearance - 23.5 mL/min Pharmacy to renally adjust medications per Dr. Hartman Plan: No medications will require renal dose adjustment based on patient's current estimate d Crcl. Pharmacy will continue to follow and adjust as appropriate. Pharmacist: Jazz Rahman 01/14/2015 10:26 PM onversio n Transaction, Provider Unknown - 01/14/2015 5:34 PM PDTFormatting of this note might be di fferent from the original. Case Management by PHUONG Crump LICSW at 01/14/156 Author: PHUONG Crump LICSW Service: (none) Author Type: Marriage Counselor Filed: 01/14/151734 Date of Service: 01/14/151733 Status: Signed Machine Fur Cleaner: PHOUNG Crump LICSW (Marriage Counselor) 01/14/151727 Discharge Planning Evaluation Admitting Diagnosis Near syncope, elevated tropinin, non-stemi, CKD Readmission No Living Arrangements Alone Support Systems Family members;Friends/neighbors Type of Residence Private residence House type Apartment Bathrooms on 1st Floor 1-Full Independent with ADL's Yes Independent with Mobility No-comment Home Care Services No Mental Status Oriented Power of Staff Internist Office Based Only No;Other (comment) Resources Transportation issues No Prescription Plan Yes Name of Pharmacy [facility] in [place], [place] Previous home health equipment Yes Anticipated Disposition Facility Type Home Met with patient and discussed discharge planning, Pt is a 69 y.o., female who reports skyleri mack alone. Patient reports her sister, Annie Tipton, will transport her home a t discharge. Patient's PCP is: [facility] (General) Patient's insurance:[employer] Plan & Medicare Coverage concerns: Medication coverage/concerns: Doreen Bedside Delivery: [facility] resources utilized / needed: TBD Assistance in transportation: Sister to transport Identification of any specific education / training:TBD Barriers to Discharge / Alternative housing needed: No Anticipated DCP: Home. Annie Edwin docume nted in this encounter Plan of Treatment Not on filedocumented as of this encounter Procedures + +--------+ + + + | Procedure Name | Priori | Date/Time | Associated Diagnosis | Comments | | | ty | | | | + +--------+ + + + | TISSUE REQUEST FOR | Routin | 01/20/2015 | | Results for this | | PATHOLOGY (NON-ORD) | e | 12:00 AM | | procedure are in the | | | | PDT | | results section. | + +--------+ + + + | PHOSPHORUS | Routin | 01/19/2015 | | Results for this | | | e | 3:30 AM | | procedure are in the | | | | PDT | | results section. | + +--------+ + + + | MAGNESIUM | Routin | 01/19/2015 | | Results for this | | | e | 3:30 AM | | procedure are in the | | | | PDT | | results section. | + +--------+ + + + | BASIC METABOLIC | Routin | 01/19/2015 | | Results for this | | PANEL | e | 3:30 AM | | procedure are in the | | | | PDT | | results section. | + +--------+ + + + | NM MYOCARDIAL | Routin | 01/18/2015 | | Results for this | | PERFUSION MULT SPECT | e | 2:28 PM | | procedure are in the | | | | PDT | | results section. | + +--------+ + + + | EXTERNAL LAB: CBC | Routin | 01/18/2015 | | Results for this | | | e | 3:25 AM | | procedure are in the | | | | PDT | | results section. | + +--------+ + + + | PHOSPHORUS | Routin | 01/18/2015 | | Results for this | | | e | 3:25 AM | | procedure are in the | | | | PDT | | results section. | + +--------+ + + + | MAGNESIUM | Routin | 01/18/2015 | | Results for this | | | e | 3:25 AM | | procedure are in the | | | | PDT | | results section. | + +--------+ + + + | COMPREHENSIVE | Routin | 01/18/2015 | | Results for this | | METABOLIC PANEL | e | 3:25 AM | | procedure are in the | | | | PDT | | results section. | + +--------+ + + + | POTASSIUM | Routin | 01/17/2015 | | Results for this | | | e | 10:26 PM | | procedure are in the | | | | PDT | | results section. | + +--------+ + + + | PHOSPHORUS | Routin | 01/17/2015 | | Results for this | | | e | 10:26 PM | | procedure are in the | | | | PDT | | results section. | + +--------+ + + + | MAGNESIUM | Routin | 01/17/2015 | | Results for this | | | e | 10:26 PM | | procedure are in the | | | | PDT | | results section. | + +--------+ + + + | POTASSIUM | Routin | 01/17/2015 | | Results for this | | | e | 2:13 PM | | procedure are in the | | | | PDT | | results section. | + +--------+ + + + | PHOSPHORUS | Routin | 01/17/2015 | | Results for this | | | e | 2:13 PM | | procedure are in the | | | | PDT | | results section. | + +--------+ + + + | MAGNESIUM | Routin | 01/17/2015 | | Results for this | | | e | 2:13 PM | | procedure are in the | | | | PDT | | results section. | + +--------+ + + + | EXTERNAL LAB: CBC | Routin | 01/17/2015 | | Results for this | | | e | 3:53 AM | | procedure are in the | | | | PDT | | results section. | + +--------+ + + + | COMPREHENSIVE | Routin | 01/17/2015 | | Results for this | | METABOLIC PANEL | e | 3:53 AM | | procedure are in the | | | | PDT | | results section. | + +--------+ + + + | POTASSIUM | Routin | 01/16/2015 | | Results for this | | | e | 8:03 PM | | procedure are in the | | | | PDT | | results section. | + +--------+ + + + | MAGNESIUM | Routin | 01/16/2015 | | Results for this | | | e | 8:03 PM | | procedure are in the | | | | PDT | | results section. | + +--------+ + + + | POTASSIUM | Routin | 01/16/2015 | | Results for this | | | e | 3:52 PM | | procedure are in the | | | | PDT | | results section. | + +--------+ + + + | PHOSPHORUS | Routin | 01/16/2015 | | Results for this | | | e | 3:52 PM | | procedure are in the | | | | PDT | | results section. | + +--------+ + + + | HISTORICAL | Timed | 01/16/2015 | | Results for this | | MICROBIOLOGY RESULT | | 3:25 PM | | procedure are in the | | | | PDT | | results section. | + +--------+ + + + | OVA AND PARASITE | Timed | 01/16/2015 | | Results for this | | EXAMINATION | | 3:25 PM | | procedure are in the | | | | PDT | | results section. | + +--------+ + + + | FECAL LEUKOCYTES | Timed | 01/16/2015 | | Results for this | | | | 3:25 PM | | procedure are in the | | | | PDT | | results section. | + +--------+ + + + | CULTURE, STOOL | Timed | 01/16/2015 | | Results for this | | | | 3:25 PM | | procedure are in the | | | | PDT | | results section. | + +--------+ + + + | CYTOMEGALOVIRUS AB, | Routin | 01/16/2015 | | Results for this | | IGG AND IGM | e | 9:10 AM | | procedure are in the | | | | PDT | | results section. | + +--------+ + + + | CYTOMEGALOVIRUS, | Routin | 01/16/2015 | | Results for this | | NAAT, QUANT | e | 9:10 AM | | procedure are in the | | | | PDT | | results section. | + +--------+ + + + | EXTERNAL LAB: CBC | Routin | 01/16/2015 | | Results for this | | | e | 3:21 AM | | procedure are in the | | | | PDT | | results section. | + +--------+ + + + | TSH | Routin | 01/16/2015 | | Results for this | | | e | 3:21 AM | | procedure are in the | | | | PDT | | results section. | + +--------+ + + + | T4, FREE | Routin | 01/16/2015 | | Results for this | | | e | 3:21 AM | | procedure are in the | | | | PDT | | results section. | + +--------+ + + + | PHOSPHORUS | Routin | 01/16/2015 | | Results for this | | | e | 3:21 AM | | procedure are in the | | | | PDT | | results section. | + +--------+ + + + | MAGNESIUM | Routin | 01/16/2015 | | Results for this | | | e | 3:21 AM | | procedure are in the | | | | PDT | | results section. | + +--------+ + + + | COMPREHENSIVE | Routin | 01/16/2015 | | Results for this | | METABOLIC PANEL | e | 3:21 AM | | procedure are in the | | | | PDT | | results section. | + +--------+ + + + | EOSINOPHIL SMEAR, | Routin | 01/15/2015 | | Results for this | | URINE | e | 3:26 PM | | procedure are in the | | | | PDT | | results section. | + +--------+ + + + | SODIUM, URINE, | Routin | 01/15/2015 | | Results for this | | RANDOM | e | 3:25 PM | | procedure are in the | | | | PDT | | results section. | + +--------+ + + + | CULTURE, URINE | Timed | 01/15/2015 | | Results for this | | | | 3:24 PM | | procedure are in the | | | | PDT | | results section. | + +--------+ + + + | ECHO COMPLETE | Routin | 01/15/2015 | | Results for this | | | e | 7:33 AM | | procedure are in the | | | | PDT | | results section. | + +--------+ + + + | HISTORICAL | Timed | 01/15/2015 | | Results for this | | MICROBIOLOGY RESULT | | 6:52 AM | | procedure are in the | | | | PDT | | results section. | + +--------+ + + + | EXTERNAL LAB: CBC | Routin | 01/15/2015 | | Results for this | | | e | 6:32 AM | | procedure are in the | | | | PDT | | results section. | + +--------+ + + + | C3 AND C4 | Routin | 01/15/2015 | | Results for this | | | e | 6:32 AM | | procedure are in the | | | | PDT | | results section. | + +--------+ + + + | TROPONIN I | Routin | 01/15/2015 | | Results for this | | | e | 6:32 AM | | procedure are in the | | | | PDT | | results section. | + +--------+ + + + | PHOSPHORUS | Routin | 01/15/2015 | | Results for this | | | e | 6:32 AM | | procedure are in the | | | | PDT | | results section. | + +--------+ + + + | MAGNESIUM | Routin | 01/15/2015 | | Results for this | | | e | 6:32 AM | | procedure are in the | | | | PDT | | results section. | + +--------+ + + + | COMPREHENSIVE | Routin | 01/15/2015 | | Results for this | | METABOLIC PANEL | e | 6:32 AM | | procedure are in the | | | | PDT | | results section. | + +--------+ + + + | TSH | Routin | 01/15/2015 | | Results for this | | | e | 6:23 AM | | procedure are in the | | | | PDT | | results section. | + +--------+ + + + | ECG 12 LEAD | Routin | 01/15/2015 | | Results for this | | | e | 6:15 AM | | procedure are in the | | | | PDT | | results section. | + +--------+ + + + | TROPONIN I | Routin | 01/15/2015 | | Results for this | | | e | 12:51 AM | | procedure are in the | | | | PDT | | results section. | + +--------+ + + + | CULTURE, BLOOD | Timed | 01/15/2015 | | Results for this | | | | 12:49 AM | | procedure are in the | | | | PDT | | results section. | + +--------+ + + + | CT ABDOMEN PELVIS WO | Routin | 01/14/2015 | | Results for this | | CONTRAST | e | 9:03 PM | | procedure are in the | | | | PDT | | results section. | + +--------+ + + + | MRSA NAAT | STAT | 01/14/2015 | | Results for this | | | | 7:17 PM | | procedure are in the | | | | PDT | | results section. | + +--------+ + + + | VITAMIN B-12 | Routin | 01/14/2015 | | Results for this | | | e | 7:07 PM | | procedure are in the | | | | PDT | | results section. | + +--------+ + + + | PROCALCITONIN, SERUM | Routin | 01/14/2015 | | Results for this | | | e | 7:07 PM | | procedure are in the | | | | PDT | | results section. | + +--------+ + + + | SEDIMENTATION RATE, | Routin | 01/14/2015 | | Results for this | | AUTOMATED | e | 7:07 PM | | procedure are in the | | | | PDT | | results section. | + +--------+ + + + | C-REACTIVE PROTEIN | Routin | 01/14/2015 | | Results for this | | | e | 7:07 PM | | procedure are in the | | | | PDT | | results section. | + +--------+ + + + | LACTIC ACID | Routin | 01/14/2015 | | Results for this | | | e | 7:07 PM | | procedure are in the | | | | PDT | | results section. | + +--------+ + + + | FOLATE | Routin | 01/14/2015 | | Results for this | | | e | 7:07 PM | | procedure are in the | | | | PDT | | results section. | + +--------+ + + + | XR CHEST 1 VIEW | Routin | 01/14/2015 | | Results for this | | | e | 6:56 PM | | procedure are in the | | | | PDT | | results section. | + +--------+ + + + | ECG 12 LEAD | Routin | 01/14/2015 | | Results for this | | | e | 4:01 PM | | procedure are in the | | | | PDT | | results section. | + +--------+ + + + | URIC ACID | Routin | 01/14/2015 | | Results for this | | | e | 3:49 PM | | procedure are in the | | | | PDT | | results section. | + +--------+ + + + | PHOSPHORUS | Routin | 01/14/2015 | | Results for this | | | e | 3:49 PM | | procedure are in the | | | | PDT | | results section. | + +--------+ + + + | MAGNESIUM | Routin | 01/14/2015 | | Results for this | | | e | 3:49 PM | | procedure are in the | | | | PDT | | results section. | + +--------+ + + + | LIPASE | Routin | 01/14/2015 | | Results for this | | | e | 3:49 PM | | procedure are in the | | | | PDT | | results section. | + +--------+ + + + | AMYLASE | Routin | 01/14/2015 | | Results for this | | | e | 3:49 PM | | procedure are in the | | | | PDT | | results section. | + +--------+ + + + | HISTORICAL LAB PANEL | Routin | 01/14/2015 | | Results for this | | RESULT | e | 3:48 PM | | procedure are in the | | | | PDT | | results section. | + +--------+ + + + | TROPONIN I | Routin | 01/14/2015 | | Results for this | | | e | 3:48 PM | | procedure are in the | | | | PDT | | results section. | + +--------+ + + + documented in this encounter Results Tissue Request For Pathology (01/20/2015 12:00 AM PDT) + + | Specimen | + + | Soft tissue sample | | (specimen) | + + + + + | Narrative | Performed At | + + + | SPECIMEN(S): A TERMINAL ILEUM BIOPSY SPECIMEN(S): B COLON - RANDOM | EXTERNAL LAB | | BIOPSY SPECIMEN SOURCE: A. TERMINAL ILEUM BIOPSY B. COLON - | | | RANDOM BIOPSY CLINICAL HISTORY: 01/17/2015 at 2107 H. Terminal | | | ileum biopsy, random colon biopsy. MICROSCOPIC DESCRIPTION: | | | Histologic sections of all submitted blocks are examined by light | | | microscopy. These findings, together with the gross examination, | | | support the pathologic diagnosis. FINAL PATHOLOGIC DIAGNOSIS: A. | | | Terminal ilium, biopsy: - No pathologic abnormality | | | COMMENT: Sections of small bowel mucosa show long fingerlike villi. | | | There are no features suggestive of celiac disease. There is no | | | evidence of inflammatory bowel disease, microorganisms, abnormal | | | infiltrates or neoplasia. B. Colon, random biopsies: - No | | | pathologic abnormality. The sections from the specimen contain | | | architecturally normal colonic mucosa. There is no acute or chronic | | | inflammation. There is no evidence of microscopic colitis. There | | | are no abnormal organisms or infiltrates. There are no polyps or | | | neoplasms. GROSS DESCRIPTION: Two specimens are received in two | | | containers labeled with the patient's name: A. The specimen is | | | received in formalin designated "terminal ileum bx" and consists of | | | one yellow-lane soft tissue fragment that is 0.4 cm in greatest | | | dimension. The specimen is entirely submitted in cassette (A1). | | | B. The specimen is received in formalin designated "random colon bx" | | | and consists of three yellow-lane soft tissue fragments that range in | | | size from 0.3 cm up to 0.4 cm in greatest dimension. The specimen | | | is entirely submitted in cassette (B1). fm:[email or web address] PERFORMING | | | LABORATORY: Professional interpretation and technical preparation was | | | performed by [email or web address], [facility], [facility] | | | [place] [address] (Energy Operations Vice President: Martin | | Tariq Galvan M.D.; NINA#: [id number]). Diagnostician: Martin Galvan | | | Pathologist Electronically Signed 01/21/2015 | | + + + + +---------+ + + | Performing | Address | City/State/Zipcode | Phone Number | | Organization | | | | + +---------+ + + | EXTERNAL LAB | | | | + +---------+ + + Phosphorus (01/19/2015 3:30 AM PDT) + + + + + + | Component | Value | Ref Range | Performed | Pathologist | | | | | At | Signature | + + + + + + | PHOSPHORUS | 2.3Comment: Testing | 2.3 - 4.8 mg/dL | EXTERNAL | | | | performed at [facility], [address] | | LAB | | | | [address], | | | | | | [place] [address] | | | | + + + + + + + + | Specimen | + + | Blood specimen | | (specimen) | + + + +---------+ + + | Performing | Address | City/State/Zipcode | Phone Number | | Organization | | | | + +---------+ + + | EXTERNAL LAB | | | | + +---------+ + + Magnesium (01/19/2015 3:30 AM PDT) + + + + + + | Component | Value | Ref Range | Performed | Pathologist | | | | | At | Signature | + + + + + + | Magnesium | 1.5 (L)Comment: Testing | 1.7 - 2.4 mg/dL | EXTERNAL | | | | performed at [facility], [address] | | LAB | | | | [address], | | | | | | [place] [address] | | | | + + + [...] + +---------+ + + Basic Metabolic Panel (01/19/2015 3:30 AM PDT) + + + + + + | Component | Value | Ref Range | Performed | Pathologist | | | | | At | Signature | + + + + + + | Na | 136Comment: Testing | 135 - 143 | EXTERNAL | | | | performed at [facility], [address] | mmol/L | LAB | | | | [address], | | | | | | [place] [address] | | | | + + + + + + | K | 3.4 (L)Comment: Testing | 3.5 - 4.9 | EXTERNAL | | | | performed at [facility], [address] | mmol/L | LAB | | | | [address], | | | | | | [place] [address] | | | | + + + + + + | Cl | 101Comment: Testing | 99 - 109 mmol/L | EXTERNAL | | | | performed at [facility], [address] | | LAB | | | | [address], | | | | | | [place] [address] | | | | + + + + + + | CO2 | 28Comment: Testing | 23 - 32 mmol/L | EXTERNAL | | | | performed at [facility], [address] | | LAB | | | | [address], | | | | | | [place] [address] | | | | + + + + + + | Anion Gap | 10Comment: Testing | 5 - 20 mmol/L | EXTERNAL | | | | performed at [facility], [address] | | LAB | | | | [address], | | | | | | [place] [address] | | | | + + + + + + | Glucose, | 107 (H)Comment: Testing | 65 - 99 mg/dL | EXTERNAL | | | Fasting | performed at [facility], [address] | | LAB | | | | [address], | | | | | | [place] [address] | | | | + + + + + + | BUN | 8Comment: Testing | 8 - 25 mg/dL | EXTERNAL | | | | performed at [facility], [address] | | LAB | | | | [address], | | | | | | [place] [address] | | | | + + + + + + | Creatinine | 0.96Comment: Testing | 0.50 - 1.00 | EXTERNAL | | | | performed at [facility], [address] | mg/dL | LAB | | | | [address], | | | | | | [place] [address] | | | | + + + + + + | BUN/Creatin | 8Comment: Testing | | EXTERNAL | | | ine Ratio | performed at [facility], [address] | | LAB | | | | [address], | | | | | | [place] [address] | | | | + + + + + + | Calcium | 8.6Comment: Testing | 8.5 - 10.5 | EXTERNAL | | | | performed at [facility], [address] | mg/dL | LAB | | | | [address], | | | | | | [place] [address] | | | | + + + + + + | Estimated | >60Comment: GFR <60: | mL/min/1.73m2 | EXTERNAL | | | GFR | CHRONIC KIDNEY DISEASE, | | LAB | | | | IF FOUND OVER A 3 MONTH | | | | | | PERIOD.GFR <15: KIDNEY | | | | | | FAILURE.FOR | | | | | | AMERICANS, MULTIPLY THE | | | | | | CALCULATED GFR BY | | | | | | 1.210.Testing performed | | | | | | at [facility], [address] | | | | | | [address], | | | | | | [place] [address] | | | | + + + + + + + + | Specimen | + + | Blood specimen | | (specimen) | + + + +---------+ + + | Performing | Address | City/State/Zipcode | Phone Number | | Organization | | | | + +---------+ + + | EXTERNAL LAB | | | | + +---------+ + + NM Myocardial Perfusion Mult SPECT (01/18/2015 2:28 PM PDT) + + | Specimen | + + | | + + + + + | Impressions | Performed At | + + + | 1. Normal myocardial perfusion study. 2. No evidence of | | | pharmacologic stress induced ischemia or infarct. 3. Mild decreased | | | wall motion of the inferior septum. 4. Left ventricular ejection | | | fraction is calculated at 61%. | | + + + + + + | Narrative | Performed At | + + + | [facility] [address] [place] MYOCARDIAL PERFUSION SPECT - STRESS | | | AND REST 01/18/2015 2:28 PM INDICATION: Elevation of troponin, | | | chest pain COMPARISON: None. TECHNIQUE: A same day, rest and | | | stress protocol was performed. For the resting portion of the study | | | the patient was injected intravenously with 10 mCi of technetium 99m | | | labeled Myoview. Gated SPECT imaging was performed in the supine | | | position. The patient was then pharmacologically stressed with 0.4 | | | mg of regadenoson intravenously according to protocol. Resting | | | heart rate deedee from 69 beats/min to 88 beats/min which was 58% of the | | | maximum age-predicted heart rate. At the point of maximum stress, | | | the patient received 40 mCi of technetium 99m labeled Myoview | | | intravenously. Gated SPECT images were acquired in the supine | | | position. FINDINGS: There are no fixed or reversible perfusion | | | defects present between rest and stress imaging in the supine | | | position. Normal wall thickening of the left ventricle is | | | demonstrated. There appears to be diminished wall motion along the | | | inferior septum. There is mild elevation of the transient ischemic | | | dilatation ratio. The following functional data was obtained: | | | End-diastolic volume: 50 mL End-systolic volume: 20 mL Ejection | | | fraction: 61% | | + + + + + | Procedure Note | + + | Hayden, Rad Conversion - 01/05/2019 4:32 AM PDT [facility] [place] MYOCARDIAL | | PERFUSION SPECT - STRESS AND REST01/18/2015 2:28 PM INDICATION: Elevation of troponin, | | chest pain COMPARISON: None. TECHNIQUE:A same day, rest and stress protocol was | | performed. For the resting portion of the study the patient was injected intravenously | | with 10 mCi of technetium 99m labeled Myoview. Gated SPECT imaging was performed in the | | supine position. The patient was then pharmacologically stressed with 0.4 mg of | | regadenoson intravenously according to protocol. Resting heart rate deedee from 69 | | beats/min to 88 beats/min which was 58% of the maximum age-predicted heart rate. At the | | point of maximum stress, the patient received 40 mCi of technetium 99m labeled Myoview | | intravenously. Gated SPECT images were acquired in the supine position. FINDINGS: There | | are no fixed or reversible perfusion defects present between rest and stress imaging in | | the supine position. Normal wall thickening of the left ventricle is demonstrated. | | There appears to be diminished wall motion along the inferior septum. There is mild | | elevation of the transient ischemic dilatation ratio. The following functional data was | | obtained:End-diastolic volume: 50 mLEnd-systolic volume: 20 mLEjection fraction: 61% | | IMPRESSION: 1. Normal myocardial perfusion study.2. No evidence of pharmacologic | | stress induced ischemia or infarct.3. Mild decreased wall motion of the inferior | | septum.4. Left ventricular ejection fraction is calculated at 61%. Electronically | | signed by Chang Gar MD on 01/18/2015 2:52 PM | |End-diastolic volume: 50 mL | |End-systolic volume: 20 mL | |Ejection fraction: 61% | | | |IMPRESSION: | |1. Normal myocardial perfusion study. | |2. No evidence of pharmacologic stress induced ischemia or infarct. | |3. Mild decreased wall motion of the inferior septum. | |4. Left ventricular ejection fraction is calculated at 61%. | | | | | + + External Lab: [facility] (01/18/2015 3:25 AM PDT) + + + + + + | Component | Value | Ref Range | Performed | Pathologist | | | | | At | Signature | + + + + + + | WBC | 8.07Comment: Testing | 3.80 - 11.00 | EXTERNAL | | | | performed at [facility], [address] | K/uL | LAB | | | | [address], | | | | | | [place] [address] | | | | + + + + + + | RED CELL | 3.41 (L)Comment: Testing | 3.70 - 5.10 | EXTERNAL | | | COUNT | performed at [facility], [address] | M/uL | LAB | | | | [address], | | | | | | [place] [address] | | | | + + + + + + | Hgb | 11.9Comment: Testing | 11.3 - 15.5 | EXTERNAL | | | | performed at [facility], [address] | g/dL | LAB | | | | [address], | | | | | | [place] [address] | | | | + + + + + + | Hematocrit, | 35.7Comment: Testing | 34.0 - 46.0 % | EXTERNAL | | | POC | performed at [facility], [address] | | LAB | | | | [address], | | | | | | [place] [address] | | | | + + + + + + | MCV | 104.6 (H)Comment: | 80.0 - 100.0 fl | EXTERNAL | | | | Testing performed at | | LAB | | | | [facility], [address] [facility] | | | | | | [place] | | | | | | [address] | | | | + + + + + + | MCH | 34.9 (H)Comment: Testing | 27.0 - 34.0 pg | EXTERNAL | | | | performed at [facility], [address] | | LAB | | | | [address], | | | | | | [place] [address] | | | | + + + + + + | MCHC | 33.3Comment: Testing | 32.0 - 35.5 | EXTERNAL | | | | performed at [facility], [address] | g/dL | LAB | | | | [address], | | | | | | [place] [address] | | | | + + + + + + | RDW-CV | 50.8Comment: Testing | 37 - 53 fl | EXTERNAL | | | | performed at [facility], [address] | | LAB | | | | [address], | | | | | | [place] [address] | | | | + + + + + + | Platelet | 170Comment: SLIDE | 150 - 400 K/uL | EXTERNAL | | | Count | SCANNED, AGREES WITH | | LAB | | | Plasma | AUTOMATED | | | | | | RESULTS.Testing | | | | | | performed at [facility], [address] | | | | | | [address], | | | | | | [place] [address] | | | | + + + + + + | MPV | 12.6Comment: Testing | fl | EXTERNAL | | | | performed at [facility], [address] | | LAB | | | | [address], | | | | | | [place] [address] | | | | + + + + + + | Differentia | AUTOMATEDComment: | | EXTERNAL | | | l Type | Testing performed at | | LAB | | | | [facility], [address] | | | | | | [place] | | | | | | [address] | | | | + + + + + + | % Segmented | 40.31Comment: Testing | % | EXTERNAL | | | | performed at [facility], [address] | | LAB | | | Neutrophils | [address], | | | | | | [place] [address] | | | | + + + + + + | % | 39.78Comment: Testing | % | EXTERNAL | | | Lymphocytes | performed at [facility], [address] | | LAB | | | | [address], | | | | | | [place] [address] | | | | + + + + + + | % Monocytes | 12.51Comment: Testing | % | EXTERNAL | | | | performed at [facility], [address] | | LAB | | | | [address], | | | | | | [place] [address] | | | | + + + + + + | % | 6.45Comment: Testing | % | EXTERNAL | | | Eosinophils | performed at [facility], [address] | | LAB | | | | [address], | | | | | | [place] [address] | | | | + + + + + + | % Basophils | 0.95Comment: Testing | % | EXTERNAL | | | | performed at [facility], [address] | | LAB | | | | [address], | | | | | | [place] [address] | | | | + + + + + + | Absolute | 3.26Comment: Testing | 1.90 - 7.40 | EXTERNAL | | | Segmented | performed at [facility], [address] | K/uL | LAB | | | Neutrophils | [address], | | | | | | [place] [address] | | | | + + + + + + | Absolute | 3.21Comment: Testing | 1.00 - 3.90 | EXTERNAL | | | Lymphocytes | performed at [facility], [address] | K/uL | LAB | | | | [address], | | | | | | [place] [address] | | | | + + + + + + | Absolute | 1.01 (H)Comment: Testing | 0.00 - 0.80 | EXTERNAL | | | Monocytes | performed at [facility], [address] | K/uL | LAB | | | | [address], | | | | | | [place] [address] | | | | + + + + + + | Absolute | 0.52 (H)Comment: Testing | 0.00 - 0.50 | EXTERNAL | | | Eosinophils | performed at [facility], [address] | K/uL | LAB | | | | [address], | | | | | | [place] [address] | | | | + + + + + + | Absolute | 0.08Comment: Testing | 0.00 - 0.10 | EXTERNAL | | | Basophils | performed at [facility], [address] | K/uL | LAB | | | | [address], | | | | | | [place] [address] | | | | + + + + + + | RBC | RBC AND PLT MORPHOLOGY | | EXTERNAL | | | Morphology | APPEAR NORMALComment: | | LAB | | | | Testing performed at | | | | | | [facility], [address] [facility] | | | | | | [place] | | | | | | [address] | | | | + + + + + + + + | Specimen | + + | Blood specimen | | (specimen) | + + + +---------+ + + | Performing | Address | City/State/Zipcode | Phone Number | | Organization | | | | + +---------+ + + | EXTERNAL LAB | | | | + +---------+ + + Phosphorus (01/18/2015 3:25 AM PDT) + + + + + + | Component | Value | Ref Range | Performed | Pathologist | | | | | At | Signature | + + + + + + | PHOSPHORUS | 2.6Comment: Testing | 2.3 - 4.8 mg/dL | EXTERNAL | | | | performed at [facility], [address] | | LAB | | | | [address], | | | | | | [place] [address] | | | | + + + + + + + + | Specimen | + + | Blood specimen | | (specimen) | + + + +---------+ + + | Performing | Address | City/State/Zipcode | Phone Number | | Organization | | | | + +---------+ + + | EXTERNAL LAB | | | | + +---------+ + + Magnesium (01/18/2015 3:25 AM PDT) + + + + + + | Component | Value | Ref Range | Performed | Pathologist | | | | | At | Signature | + + + + + + | Magnesium | 1.8Comment: Testing | 1.7 - 2.4 mg/dL | EXTERNAL | | | | performed at [facility], [address] | | LAB | | | | [address], | | | | | | [place] [address] | | | | + + + + + + + + | Specimen | + + | Blood specimen | | (specimen) | + + + +---------+ + + | Performing | Address | City/State/Zipcode | Phone Number | | Organization | | | | + +---------+ + + | EXTERNAL LAB | | | | + +---------+ + + Comprehensive Metabolic Panel (01/18/2015 3:25 AM PDT) + + + + + + | Component | Value | Ref Range | Performed | Pathologist | | | | | At | Signature | + + + + + + | Na | 136Comment: Testing | 135 - 143 | EXTERNAL | | | | performed at [facility], [address] | mmol/L | LAB | | | | [address], | | | | | | [place] [address] | | | | + + + + + + | K | 3.8Comment: Testing | 3.5 - 4.9 | EXTERNAL | | | | performed at [facility], [address] | mmol/L | LAB | | | | [address], | | | | | | [place] [address] | | | | + + + + + + | Cl | 101Comment: Testing | 99 - 109 mmol/L | EXTERNAL | | | | performed at [facility], [address] | | LAB | | | | [address], | | | | | | [place] [address] | | | | + + + + + + | CO2 | 27Comment: Testing | 23 - 32 mmol/L | EXTERNAL | | | | performed at [facility], [address] | | LAB | | | [address], | | | | | | [place] [address] | | | | + + + + + + | Anion Gap | 12Comment: Testing | 5 - 20 mmol/L | EXTERNAL | | | | performed at [facility], [address] | | LAB | | | | [address], | | | | | | [place] [address] | | | | + + + + + + | Glucose, | 118 (H)Comment: Testing | 65 - 99 mg/dL | EXTERNAL | | | Fasting | performed at [facility], [address] | | LAB | | | | [address], | | | | | | [place] [address] | | | | + + + + + + | BUN | 7 (L)Comment: Testing | 8 - 25 mg/dL | EXTERNAL | | | | performed at [facility], [address] | | LAB | | | | [address], | | | | | | [place] [address] | | | | + + + + + + | Creatinine | 0.79Comment: Testing | 0.50 - 1.00 | EXTERNAL | | | | performed at [facility], [address] | mg/dL | LAB | | | | [address], | | | | | | [place] [address] | | | | + + + + + + | BUN/Creatin | 9Comment: Testing | | EXTERNAL | | | ine Ratio | performed at [facility], [address] | | LAB | | | | [address], | | | | | | [place] [address] | | | | + + + + + + | Calcium | 7.5 (L)Comment: Testing | 8.5 - 10.5 | EXTERNAL | | | | performed at [facility], [address] | mg/dL | LAB | | | | [address], | | | | | | [place] [address] | | | | + + + + + + | Protein, | 7.2Comment: Testing | 6.3 - 8.2 g/dL | EXTERNAL | | | Total | performed at [facility], [address] | | LAB | | | | [address], | | | | | | [place] [address] | | | | + + + + + + | Albumin | 3.1 (L)Comment: Testing | 3.3 - 4.8 g/dL | EXTERNAL | | | | performed at [facility], [address] | | LAB | | | | [address], | | | | | | [place] [address] | | | | + + + + + + | Globulin | 4.1Comment: Testing | 1.3 - 4.9 g/dL | EXTERNAL | | | | performed at [facility], [address] | | LAB | | | | [address], | | | | | | [place] [address] | | | | + + + + + + | A/G Ratio | 0.8 (L)Comment: Testing | 1.0 - 2.4 | EXTERNAL | | | | performed at [facility], [address] | | LAB | | | | [address], | | | | | | [place] [address] | | | | + + + + + + | Bilirubin | 0.5Comment: Testing | 0.1 - 1.5 mg/dL | EXTERNAL | | | Total | performed at [facility], [address] | | LAB | | | | [address], | | | | | | [place] [address] | | | | + + + + + + | ALP, | 76Comment: Testing | 35 - 115 U/L | EXTERNAL | | | External | performed at [facility], [address] | | LAB | | | | [address], | | | | | | [place] [address] | | | | + + + + + + | AST | 43Comment: Testing | 10 - 45 U/L | EXTERNAL | | | | performed at [facility], [address] | | LAB | | | | [address], | | | | | | [place] [address] | | | | + + + + + + | ALT | 25Comment: Testing | 10 - 65 U/L | EXTERNAL | | | | performed at [facility], [address] | | LAB | | | | [address], | | | | | | [place] [address] | | | | + + + + + + | Estimated | >60Comment: GFR <60: | mL/min/1.73m2 | EXTERNAL | | | GFR | CHRONIC KIDNEY DISEASE, | | LAB | | | | IF FOUND OVER A 3 MONTH | | | | | | PERIOD.GFR <15: KIDNEY | | | | | | FAILURE.FOR | | | | | | AMERICANS, MULTIPLY THE | | | | | | CALCULATED GFR BY | | | | | | 1.210.Testing performed | | | | | | at [facility], [address] | | | | | | [address], | | | | | | [place] [address] | | | | + + + + + + + + | Specimen | + + | Blood specimen | | (specimen) | + + + +---------+ + + | Performing | Address | City/State/Zipcode | Phone Number | | Organization | | | | + +---------+ + + | EXTERNAL LAB | | | | + +---------+ + + Potassium (01/17/2015 10:26 PM PDT) + + + + + + | Component | Value | Ref Range | Performed | Pathologist | | | | | At | Signature | + + + + + + | K | 3.4 (L)Comment: Testing | 3.5 - 4.9 | EXTERNAL | | | | performed at [facility];[address] | mmol/L | LAB | | | | [address];[place] | | | | | | [address] | | | | + + + + + + + + | Specimen | + + | Blood specimen | | (specimen) | + + + +---------+ + + | Performing | Address | City/State/Zipcode | Phone Number | | Organization | | | | + +---------+ + + | EXTERNAL LAB | | | | + +---------+ + + Phosphorus (01/17/2015 10:26 PM PDT) + + + + + + | Component | Value | Ref Range | Performed | Pathologist | | | | | At | Signature | + + + + + + | PHOSPHORUS | 3.2Comment: Testing | 2.3 - 4.8 mg/dL | EXTERNAL | | | | performed at [facility] | | LAB | | | | [address] [facility];[place], [place] | | | | | | [address] | | | | + + + + + + + + | Specimen | + + | Blood specimen | | (specimen) | + + + +---------+ + + | Performing | Address | City/State/Zipcode | Phone Number | | Organization | | | | + +---------+ + + | EXTERNAL LAB | | | | + +---------+ + + Magnesium (01/17/2015 10:26 PM PDT) + + + + + + | Component | Value | Ref Range | Performed | Pathologist | | | | | At | Signature | + + + + + + | Magnesium | 1.4 (L)Comment: Testing | 1.7 - 2.4 mg/dL | EXTERNAL | | | | performed at [facility];[address] | | LAB | | | | [address];[place] | | | | | | [address] | | | | + + + + + + + + | Specimen | + + | Blood specimen | | (specimen) | + + + +---------+ + + | Performing | Address | City/State/Zipcode | Phone Number | | Organization | | | | + +---------+ + + | EXTERNAL LAB | | | | + +---------+ + + Potassium (01/17/2015 2:13 PM PDT) + + + + + + | Component | Value | Ref Range | Performed | Pathologist | | | | | At | Signature | + + + + + + | K | 3.6Comment: Testing | 3.5 - 4.9 | EXTERNAL | | | | performed at [facility];[address] | mmol/L | LAB | | | | [address];[place], [place] | | | | | | [address] | | | | + + + + + + + + | Specimen | + + | Blood specimen | | (specimen) | + + + +---------+ + + | Performing | Address | City/State/Zipcode | Phone Number | | Organization | | | | + +---------+ + + | EXTERNAL LAB | | | | + +---------+ + + Phosphorus (01/17/2015 2:13 PM PDT) + + + + + + | Component | Value | Ref Range | Performed | Pathologist | | | | | At | Signature | + + + + + + | PHOSPHORUS | 2.1 (L)Comment: Testing | 2.3 - 4.8 mg/dL | EXTERNAL | | | | performed at [facility];[address] | | LAB | | | | [address];[place] | | | | | | [address] | | | | + + + + + + + + | Specimen | + + | Blood specimen | | (specimen) | + + + +---------+ + + | Performing | Address | City/State/Zipcode | Phone Number | | Organization | | | | + +---------+ + + | EXTERNAL LAB | | | | + +---------+ + + Magnesium (01/17/2015 2:13 PM PDT) + + + + + + | Component | Value | Ref Range | Performed | Pathologist | | | | | At | Signature | + + + + + + | Magnesium | 1.2 (L)Comment: Testing | 1.7 - 2.4 mg/dL | EXTERNAL | | | | performed at [facility];[address] | | LAB | | | | [facility];[place], [place] | | | | | | [address] | | | | + + + [...] + +---------+ + + External Lab: CBC (01/17/2015 3:53 AM PDT) + + + + + + | Component | Value | Ref Range | Performed | Pathologist | | | | | At | Signature | + + + + + + | WBC | 10.74Comment: Testing | 3.80 - 11.00 | EXTERNAL | | | | performed at [facility], [address] | K/uL | LAB | | | | [address], | | | | | | [place] [address] | | | | + + + + + + | RED CELL | 3.40 (L)Comment: Testing | 3.70 - 5.10 | EXTERNAL | | | COUNT | performed at [facility], [address] | M/uL | LAB | | | | [address], | | | | | | [place] [address] | | | | + + + + + + | Hgb | 12.0Comment: Testing | 11.3 - 15.5 | EXTERNAL | | | | performed at [facility], [address] | g/dL | LAB | | | | [address], | | | | | | [place] [address] | | | | + + + + + + | Hematocrit, | 35.8Comment: Testing | 34.0 - 46.0 % | EXTERNAL | | | POC | performed at [facility], [address] | | LAB | | | | [address], | | | | | | [place] [address] | | | | + + + + + + | MCV | 105.3 (H)Comment: | 80.0 - 100.0 fl | EXTERNAL | | | | Testing performed at | | LAB | | | | [facility], [address] [facility] | | | | | | [place] | | | | | | [address] | | | | + + + + + + | MCH | 35.3 (H)Comment: Testing | 27.0 - 34.0 pg | EXTERNAL | | | | performed at [facility], [address] | | LAB | | | | [address], | | | | | | [place] [address] | | | | + + + + + + | MCHC | 33.6Comment: Testing | 32.0 - 35.5 | EXTERNAL | | | | performed at [facility], [address] | g/dL | LAB | | | | [address], | | | | | | [place] [address] | | | | + + + + + + | RDW-CV | 50.8Comment: Testing | 37 - 53 fl | EXTERNAL | | | | performed at [facility], [address] | | LAB | | | | [address], | | | | | | [place] [address] | | | | + + + + + + | Platelet | 149 (L)Comment: Testing | 150 - 400 K/uL | EXTERNAL | | | Count | performed at [facility], [address] | | LAB | | | Plasma | [address], | | | | | | [place] [address] | | | | + + + + + + | MPV | 13.0Comment: Testing | fl | EXTERNAL | | | | performed at [facility], [address] | | LAB | | | | [address], | | | | | | [place] [address] | | | | + + + + + + | Differentia | AUTOMATEDComment: | | EXTERNAL | | | l Type | Testing performed at | | LAB | | | | [facility], [address] | | | | | | [place] | | | | | | [address] | | | | + + + + + + | % Segmented | 52.08Comment: Testing | % | EXTERNAL | | | | performed at [facility], [address] | | LAB | | | Neutrophils | [address], | | | | | | [place] [address] | | | | + + + + + + | % | 32.37Comment: Testing | % | EXTERNAL | | | Lymphocytes | performed at [facility], [address] | | LAB | | | | [address], | | | | | | [place] [address] | | | | + + + + + + | % Monocytes | 10.07Comment: Testing | % | EXTERNAL | | | | performed at [facility], [address] | | LAB | | | | [address], | | | | | | [place] [address] | | | | + + + + + + | % | 4.41Comment: Testing | % | EXTERNAL | | | Eosinophils | performed at [facility], [address] | | LAB | | | | [address], | | | | | | [place] [address] | | | | + + + + + + | % Basophils | 1.07Comment: Testing | % | EXTERNAL | | | | performed at [facility], [address] | | LAB | | | | [address], | | | | | | [place] [address] | | | | + + + + + + | Absolute | 5.59Comment: Testing | 1.90 - 7.40 | EXTERNAL | | | Segmented | performed at [facility], [address] | K/uL | LAB | | | Neutrophils | [address], | | | | | | [place] [address] | | | | + + + + + + | Absolute | 3.48Comment: Testing | 1.00 - 3.90 | EXTERNAL | | | Lymphocytes | performed at [facility], [address] | K/uL | LAB | | | | [address], | | | | | | [place] [address] | | | | + + + + + + | Absolute | 1.08 (H)Comment: Testing | 0.00 - 0.80 | EXTERNAL | | | Monocytes | performed at [facility], [address] | K/uL | LAB | | | | [address], | | | | | | [place] [address] | | | | + + + + + + | Absolute | 0.47Comment: Testing | 0.00 - 0.50 | EXTERNAL | | | Eosinophils | performed at [facility], [address] | K/uL | LAB | | | | [address], | | | | | | [place] [address] | | | | + + + + + + | Absolute | 0.12 (H)Comment: Testing | 0.00 - 0.10 | EXTERNAL | | | Basophils | performed at [facility], [address] | K/uL | LAB | | | | [address], | | | | | | [place] [address] | | | | + + + + + + | RBC | NORMAL RBC MORPHComment: | | EXTERNAL | | | Morphology | Testing performed at | | LAB | | | | [facility], [address] [facility] | | | | | | [place] | | | | | | [address] | | | | + + + + + + | Differentia | 1+ GIANT PLTComment: | | EXTERNAL | | | l Comments | Testing performed at | | LAB | | | | [facility], [address] | | | | | | [place] | | | | | | [address] | | | | + + + + + + + + | Specimen | + + | Blood specimen | | (specimen) | + + + +---------+ + + | Performing | Address | City/State/Zipcode | Phone Number | | Organization | | | | + +---------+ + + | EXTERNAL LAB | | | | + +---------+ + + Comprehensive Metabolic Panel (01/17/2015 3:53 AM PDT) + + + + + + | Component | Value | Ref Range | Performed | Pathologist | | | | | At | Signature | + + + + + + | Na | 138Comment: Testing | 135 - 143 | EXTERNAL | | | | performed at [facility], [address] | mmol/L | LAB | | | | [address], | | | | | | [place] [address] | | | | + + + + + + | K | 3.2 (L)Comment: Testing | 3.5 - 4.9 | EXTERNAL | | | | performed at [facility], [address] | mmol/L | LAB | | | | [address], | | | | | | [place] [address] | | | | + + + + + + | Cl | 100Comment: Testing | 99 - 109 mmol/L | EXTERNAL | | | | performed at [facility], [address] | | LAB | | | | [address], | | | | | | [place] [address] | | | | + + + + + + | CO2 | 28Comment: Testing | 23 - 32 mmol/L | EXTERNAL | | | | performed at [facility], [address] | | LAB | | | | [address], | | | | | | [place] [address] | | | | + + + + + + | Anion Gap | 13Comment: Testing | 5 - 20 mmol/L | EXTERNAL | | | | performed at [facility], [address] | | LAB | | | | [address], | | | | | | [place] [address] | | | | + + + + + + | Glucose, | 114 (H)Comment: Testing | 65 - 99 mg/dL | EXTERNAL | | | Fasting | performed at [facility], [address] | | LAB | | | | [address], | | | | | | [place] [address] | | | | + + + + + + | BUN | 8Comment: Testing | 8 - 25 mg/dL | EXTERNAL | | | | performed at [facility], [address] | | LAB | | | | [address], | | | | | | [place] [address] | | | | + + + + + + | Creatinine | 0.94Comment: Testing | 0.50 - 1.00 | EXTERNAL | | | | performed at [facility], [address] | mg/dL | LAB | | | | [address], | | | | | | [place] [address] | | | | + + + + + + | BUN/Creatin | 9Comment: Testing | | EXTERNAL | | | ine Ratio | performed at [facility], [address] | | LAB | | | | [address], | | | | | | [place] [address] | | | | + + + + + + | Calcium | 7.8 (L)Comment: Testing | 8.5 - 10.5 | EXTERNAL | | | | performed at [facility], [address] | mg/dL | LAB | | | | [address], | | | | | | [place] [address] | | | | + + + + + + | Protein, | 7.8Comment: Testing | 6.3 - 8.2 g/dL | EXTERNAL | | | Total | performed at [facility], [address] | | LAB | | | | [address], | | | | | | [place] [address] | | | | + + + + + + | Albumin | 3.3Comment: Testing | 3.3 - 4.8 g/dL | EXTERNAL | | | | performed at [facility], [address] | | LAB | | | [address], | | | | | | [place] [address] | | | | + + + + + + | Globulin | 4.5Comment: Testing | 1.3 - 4.9 g/dL | EXTERNAL | | | | performed at [facility], [address] | | LAB | | | [address], | | | | | | [place] [address] | | | | + + + + + + | A/G Ratio | 0.7 (L)Comment: Testing | 1.0 - 2.4 | EXTERNAL | | | | performed at [facility], [address] | | LAB | | | | [address], | | | | | | [place] [address] | | | | + + + + + + | Bilirubin | 0.4Comment: Testing | 0.1 - 1.5 mg/dL | EXTERNAL | | | Total | performed at [facility], [address] | | LAB | | | | [address], | | | | | | [place] [address] | | | | + + + + + + | ALP, | 83Comment: Testing | 35 - 115 U/L | EXTERNAL | | | External | performed at [facility], [address] | | LAB | | | | [address], | | | | | | [place] [address] | | | | + + + + + + | AST | 34Comment: Testing | 10 - 45 U/L | EXTERNAL | | | | performed at [facility], [address] | | LAB | | | | [address], | | | | | | [place] [address] | | | | + + + + + + | ALT | 24Comment: Testing | 10 - 65 U/L | EXTERNAL | | | | performed at [facility], [address] | | LAB | | | | [facility], | | | | | | [place] [address] | | | | + + + + + + | Estimated | >60Comment: GFR <60: | mL/min/1.73m2 | EXTERNAL | | | GFR | CHRONIC KIDNEY DISEASE, | | LAB | | | | IF FOUND OVER A 3 MONTH | | | | | | PERIOD.GFR <15: KIDNEY | | | | | | FAILURE.FOR | | | | | | AMERICANS, MULTIPLY THE | | | | | | CALCULATED GFR BY | | | | | | 1.210.Testing performed | | | | | | at [facility], [address] | | | | | | [facility], | | | | | | [place] [address] | | | | + + + + + + + + | Specimen | + + | Blood specimen | | (specimen) | + + + +---------+ + + | Performing | Address | City/State/Zipcode | Phone Number | | Organization | | | | + +---------+ + + | EXTERNAL LAB | | | | + +---------+ + + Potassium (01/16/2015 8:03 PM PDT) + + + + + + | Component | Value | Ref Range | Performed | Pathologist | | | | | At | Signature | + + + + + + | K | 3.5Comment: MODERATE | 3.5 - 4.9 | EXTERNAL | | | | HEMOLYSISTesting | mmol/L | LAB | | | | performed at [facility] | | | | | | [facility];[place], [place] | | | | | | [address] | | | | + + + + + + + + | Specimen | + + | Blood specimen | | (specimen) | + + + +---------+ + + | Performing | Address | City/State/Zipcode | Phone Number | | Organization | | | | + +---------+ + + | EXTERNAL LAB | | | | + +---------+ + + Magnesium (01/16/2015 8:03 PM PDT) + + + + + + | Component | Value | Ref Range | Performed | Pathologist | | | | | At | Signature | + + + + + + | Magnesium | 1.5 (L)Comment: MODERATE | 1.7 - 2.4 mg/dL | EXTERNAL | | | | HEMOLYSISTesting | | LAB | | | | performed at [facility];[address] | | | | | | [address];[place], [place] | | | | | | [address] | | | | + + + + + + + + | Specimen | + + | Blood specimen | | (specimen) | + + + +---------+ + + | Performing | Address | City/State/Zipcode | Phone Number | | Organization | | | | + +---------+ + + | EXTERNAL LAB | | | | + +---------+ + + Potassium (01/16/2015 3:52 PM PDT) + + + + + + | Component | Value | Ref Range | Performed | Pathologist | | | | | At | Signature | + + + + + + | K | 3.1 (L)Comment: Testing | 3.5 - 4.9 | EXTERNAL | | | | performed at [facility];[address] | mmol/L | LAB | | | | [address];[place], [place] | | | | | | [address] | | | | + + + + + + + + | Specimen | + + | Blood specimen | | (specimen) | + + + +---------+ + + | Performing | Address | City/State/Zipcode | Phone Number | | Organization | | | | + +---------+ + + | EXTERNAL LAB | | | | + +---------+ + + Phosphorus (01/16/2015 3:52 PM PDT) + + + + + + | Component | Value | Ref Range | Performed | Pathologist | | | | | At | Signature | + + + + + + | PHOSPHORUS | 1.3 (L)Comment: Testing | 2.3 - 4.8 mg/dL | EXTERNAL | | | | performed at [facility];[address] | | LAB | | | | [address];[place], [place] | | | | | | [address] | | | | + + + + + + + + | Specimen | + + | Blood specimen | | (specimen) | + + + +---------+ + + | Performing | Address | City/State/Zipcode | Phone Number | | Organization | | | | + +---------+ + + | EXTERNAL LAB | | | | + +---------+ + + Culture, Stool (01/16/2015 3:25 PM PDT) + + | Specimen | + + | Stool specimen | | (specimen) | + + + + + | Narrative | Performed At | + + + | Specimen Description STOOL CULTURE | EXTERNAL LAB | | NEGATIVE FOR SHIGA TOXIN TYPE 1 | | | AND 2. NEGATIVE | | | FOR SALMONELLA, SHIGELLA AND CAMPYLOBACTER | | | IF A YERSINIA OR VIBRIO IS SUSPECTED, | | | PLEASE CONTACT THE MICRO LAB FOR SPECIAL TESTING. | | | Testing performed at [facility], [address] | | | [place] [address] | | + + + + +---------+ + + | Performing | Address | City/State/Zipcode | Phone Number | | Organization | | | | + +---------+ + + | EXTERNAL LAB | | | | + +---------+ + + Ova and Parasite Examination (01/16/2015 3:25 PM PDT) + + | Specimen | + + | Stool specimen | | (specimen) | + + + + + | Narrative | Performed At | + + + | Specimen Description STOOL OVA AND | EXTERNAL LAB | | PARASITES SPECIMEN DESCRIPTION: | | | [facility] | | | NO OVA OR PARASITES SEEN | | | Testing performed at | | | [facility], [address] [place] [address] | | + + + + +---------+ + + | Performing | Address | City/State/Zipcode | Phone Number | | Organization | | | | + +---------+ + + | EXTERNAL LAB | | | | + +---------+ + + Fecal leukocytes (01/16/2015 3:25 PM PDT) + + | Specimen | + + | Stool specimen | | (specimen) | + + + + + | Narrative | Performed At | + + + | FECAL WHITE CELLS NONE SEEN NORMAL | EXTERNAL LAB | | RANGE: NONE SEEN to 1+ Testing performed at [facility], [address] [facility] | | | [place] [address] | | + + + + +---------+ + + | Performing | Address | City/State/Zipcode | Phone Number | | Organization | | | | + +---------+ + + | EXTERNAL LAB | | | | + +---------+ + + HISTORICAL MICROBIOLOGY RESULT (01/16/2015 3:25 PM PDT) + + | Specimen | + + | Stool specimen | | (specimen) | + + + + + | Narrative | Performed At | + + + | GIARDIA ANTIGEN NEGATIVE No Giardia | EXTERNAL LAB | | lamblia antigen detected by ICA Testing performed at [facility], [address] | | | [address] [facility] [place] [address] | | + + + + +---------+ + + | Performing | Address | City/State/Zipcode | Phone Number | | Organization | | | | + +---------+ + + | EXTERNAL LAB | | | | + +---------+ + + Cytomegalovirus Ab, IgG and IgM (01/16/2015 9:10 AM PDT) + + + + + + | Component | Value | Ref Range | Performed | Pathologist | | | | | At | Signature | + + + + + + | CMV IGG | POSITIVE (A)Comment: | | EXTERNAL | | | | CMV AB, IGG (U/ML): | | LAB | | | | >10.00A VALUE OF 0.7 | | | | | | U/ML OR GREATER IS | | | | | | CONSIDERED POSITIVETHE | | | | | | MAGNITUDE OF THE | | | | | | MEASURED RESULTS ARE NOT | | | | | | INDICATIVE OF THE | | | | | | AMOUNTOF ANTIBODY | | | | | | PRESENT.IGG ANTIBODIES | | | | | | TO CYTOMEGALOVIRUS | | | | | | DETECTED. A POSITIVE | | | | | | RESULTGENERALLY | | | | | | INDICATES EITHER RECENT | | | | | | OR PAST EXPOSURE TO | | | | | | CMV.Testing performed at | | | | | | [facility], [address] | | | | | | [place] | | | | | | [address] | | | | + + + + + + | CMV IGM | NEGATIVEComment: CMV | | EXTERNAL | | | | AB, IGM (AU/ML): <8.0A | | LAB | | | | VALUE OF LESS THAN 30.0 | | | | | | AU/ML IS CONSIDERED | | | | | | NEGATIVETHE MAGNITUDE OF | | | | | | THE MEASURED RESULTS | | | | | | ARE NOT INDICATIVE OF | | | | | | THE AMOUNTOF ANTIBODY | | | | | | PRESENT.NO DETECTABLE | | | | | | IGM ANTIBODIES TO | | | | | | CYTOMEGALOVIRUS.Testing | | | | | | performed at [facility], [address] | | | | | | [address] [place] | | | | | | [place] [address] | | | | + + + + + + + + | Specimen | + + | | + + + +---------+ + + | Performing | Address | City/State/Zipcode | Phone Number | | Organization | | | | + +---------+ + + | EXTERNAL LAB | | | | + +---------+ + + YURIY Jones Quant (01/16/2015 9:10 AM PDT) + + + + + + | Component | Value | Ref Range | Performed | Pathologist | | | | | At | Signature | + + + + + + | Source | PLASMAComment: Testing | | EXTERNAL | | | | performed at [facility];[address] | | LAB | | | | [facility];[place], [place] | | | | | | [address] | | | | + + + + + + | CMV DNA | NOT DETECTEDComment: | | EXTERNAL | | | QUANTITATIV | Unit: IU/MLTesting | | LAB | | | E INTERP | performed at [facility], [address] | | | | | [address] | | | | | | [place] [address] | | | | + + + + + + | CMV DNA, | NOT DETECTEDComment: | | EXTERNAL | | | Qual PCR | Unit: COPIES/MLTesting | | LAB | | | | performed at [facility], [address] | | | | | [address] | | | | | | [place] [address] | | | | + + + + + + | CMV, Quant, | NOT DETECTEDComment: | | EXTERNAL | | | log | Unit: LOG COPIES/ML | | LAB | | | copy/mL | REPORTABLE RANGE: | | | | | | 137 TO 9,100,000 | | | | | | IU/ML 151 | | | | | | TO 10,010,000 COPIES/ML | | | | | | 2.2 TO | | | | | | 7.0 LOG COPIES/MLA | | | | | | RESULT OF NOT DETECTED | | | | | | DOES NOT RULE OUT | | | | | | PRESENCE OF PCR | | | | | | INHIBITORSIN PATIENT | | | | | | SPECIMENS OR | | | | | | CYTOMEGALOVIRUS | | | | | | CONCENTRATIONS BELOW THE | | | | | | LEVELOF DETECTION OF | | | | | | THE ASSAY.THIS TEST WAS | | | | | | DEVELOPED AND ITS | | | | | | PERFORMANCE | | | | | | CHARACTERISTICS | | | | | | DETERMINEDBY [facility] | | | | | | DIVISION OF LABORATORY | | | | | | MEDICINE. THE [employer] | | | | | | AND DRUGADMINISTRATION | | | | | | (FDA) HAS NOT APPROVED | | | | | | OR CLEARED THIS TEST. | | | | | | HOWEVER,FDA APPROVAL OR | | | | | | CLEARANCE IS CURRENTLY | | | | | | NOT REQUIRED FOR | | | | | | CLINICAL USEOF THIS | | | | | | TEST.THE RESULTS ARE NOT | | | | | | INTENDED TO BE USED | | | | | | THE SOLE MEANS FOR | | | | | | CLINICALDIAGNOSIS OR | | | | | | PATIENT MANAGEMENT | | | | | | DECISIONS. [facility] | | | | | | IS AUTHORIZEDUNDER | | | | | | CLINICAL LABORATORY | | | | | | IMPROVEMENT AMENDMENTS | | | | | | (CLIA) TO | | | | | | PERFORMHIGH-COMPLEXITY | | | | | | TESTING.THIS ASSAY | | | | | | INCLUDES REPORTING IN | | | | | | IU/ML TO PROVIDE | | | | | | TRACABILITY TO THE1ST | | | | | | WHO INTERNATIONAL | | | | | | STANDARD FOR HUMAN | | | | | | CYTOMEGALOVIRUS | | | | | | (HCMV).Testing performed | | | | | | at [facility], [address] | | | | | | [place] | | | | | | [id number] | | | | + + + [...] + +---------+ + + External Lab: [facility] (01/16/2015 3:21 AM PDT) + + + + + + | Component | Value | Ref Range | Performed | Pathologist | | | | | At | Signature | + + + + + + | WBC | 10.55Comment: Testing | 3.80 - 11.00 | EXTERNAL | | | | performed at [facility], [address] | K/uL | LAB | | | | [address], | | | | | | [place] [address] | | | | + + + + + + | RED CELL | 3.28 (L)Comment: Testing | 3.70 - 5.10 | EXTERNAL | | | COUNT | performed at [facility], [address] | M/uL | LAB | | | | [address], | | | | | | [place] [address] | | | | + + + + + + | Hgb | 11.6Comment: Testing | 11.3 - 15.5 | EXTERNAL | | | | performed at [facility], [address] | g/dL | LAB | | | | [address], | | | | | | [place] [address] | | | | + + + + + + | Hematocrit, | 34.5Comment: Testing | 34.0 - 46.0 % | EXTERNAL | | | POC | performed at [facility], [address] | | LAB | | | | [address], | | | | | | [place] [address] | | | | + + + + + + | MCV | 105.1 (H)Comment: | 80.0 - 100.0 fl | EXTERNAL | | | | Testing performed at | | LAB | | | | [facility], [address] | | | | | | [place] | | | | | | [address] | | | | + + + + + + | MCH | 35.3 (H)Comment: Testing | 27.0 - 34.0 pg | EXTERNAL | | | | performed at [facility], [address] | | LAB | | | | [address], | | | | | | [place] [address] | | | | + + + + + + | MCHC | 33.5Comment: Testing | 32.0 - 35.5 | EXTERNAL | | | | performed at [facility], [address] | g/dL | LAB | | | | [address], | | | | | | [place] [address] | | | | + + + + + + | RDW-CV | 50.8Comment: Testing | 37 - 53 fl | EXTERNAL | | | | performed at [facility], [address] | | LAB | | | | [address], | | | | | | [place] [address] | | | | + + + + + + | Platelet | 144 (L)Comment: Testing | 150 - 400 K/uL | EXTERNAL | | | Count | performed at [facility], [address] | | LAB | | | Plasma | [address], | | | | | | [place] [address] | | | | + + + + + + | MPV | 13.0Comment: Testing | fl | EXTERNAL | | | | performed at [facility], [address] | | LAB | | | | [address], | | | | | | [place] [address] | | | | + + + + + + | Differentia | AUTOMATEDComment: | | EXTERNAL | | | l Type | Testing performed at | | LAB | | | | [facility], [address] | | | | | | [place] | | | | | | [address] | | | | + + + + + + | % Segmented | 37.99Comment: Testing | % | EXTERNAL | | | | performed at [facility], [address] | | LAB | | | Neutrophils | [address], | | | | | | [place] [address] | | | | + + + + + + | % | 43.49Comment: Testing | % | EXTERNAL | | | Lymphocytes | performed at [facility], [address] | | LAB | | | | [address], | | | | | | [place] [address] | | | | + + + + + + | % Monocytes | 11.24Comment: Testing | % | EXTERNAL | | | | performed at [facility], [address] | | LAB | | | | [address], | | | | | | [place] [address] | | | | + + + + + + | % | 5.97Comment: Testing | % | EXTERNAL | | | Eosinophils | performed at [facility], [address] | | LAB | | | | [address], | | | | | | [place] [address] | | | | + + + + + + | % Basophils | 1.31Comment: Testing | % | EXTERNAL | | | | performed at [facility], [address] | | LAB | | | | [address], | | | | | | [place] [address] | | | | + + + + + + | Absolute | 4.01Comment: Testing | 1.90 - 7.40 | EXTERNAL | | | Segmented | performed at [facility], [address] | K/uL | LAB | | | Neutrophils | [address], | | | | | | [place] [address] | | | | + + + + + + | Absolute | 4.59 (H)Comment: Testing | 1.00 - 3.90 | EXTERNAL | | | Lymphocytes | performed at [facility], [address] | K/uL | LAB | | | | [address], | | | | | | [place] [address] | | | | + + + + + + | Absolute | 1.19 (H)Comment: Testing | 0.00 - 0.80 | EXTERNAL | | | Monocytes | performed at [facility], [address] | K/uL | LAB | | | | [address], | | | | | | [place] [address] | | | | + + + + + + | Absolute | 0.63 (H)Comment: Testing | 0.00 - 0.50 | EXTERNAL | | | Eosinophils | performed at [facility], [address] | K/uL | LAB | | | | [address], | | | | | | [place] [address] | | | | + + + + + + | Absolute | 0.14 (H)Comment: Testing | 0.00 - 0.10 | EXTERNAL | | | Basophils | performed at [facility], [address] | K/uL | LAB | | | | [address], | | | | | | [place] [address] | | | | + + + + + + | RBC | NORMAL RBC MORPHComment: | | EXTERNAL | | | Morphology | Testing performed at | | LAB | | | | [facility], [address] | | | | | | [place] | | | | | | [address] | | | | + + + + + + | Differentia | 2+ GIANT PLTComment: | | EXTERNAL | | | l Comments | Testing performed at | | LAB | | | | [facility], [address] | | | | | | [place] | | | | | | [address] | | | | + + + + + + + + | Specimen | + + | Blood specimen | | (specimen) | + + + +---------+ + + | Performing | Address | City/State/Zipcode | Phone Number | | Organization | | | | + +---------+ + + | EXTERNAL LAB | | | | + +---------+ + + TSH (01/16/2015 3:21 AM PDT) + + + + + + | Component | Value | Ref Range | Performed | Pathologist | | | | | At | Signature | + + + + + + | TSH | 18.97 (H)Comment: | 0.45 - 5.10 | EXTERNAL | | | | Testing performed at | uIU/mL | LAB | | | | [facility], [address] | | | | | | [place], [place] | | | | | | [address] | | | | + + + + + + + + | Specimen | + + | Blood specimen | | (specimen) | + + + +---------+ + + | Performing | Address | City/State/Zipcode | Phone Number | | Organization | | | | + +---------+ + + | EXTERNAL LAB | | | | + +---------+ + + T4, Free (01/16/2015 3:21 AM PDT) + + + + + + | Component | Value | Ref Range | Performed | Pathologist | | | | | At | Signature | + + + + + + | FREE T4 | 0.9Comment: Testing | 0.7 - 1.5 ng/dL | EXTERNAL | | | (REF) | performed at [facility], [address] | | LAB | | | | [address], | | | | | | [place] [address] | | | | + + + + + + + + | Specimen | + + | Blood specimen | | (specimen) | + + + +---------+ + + | Performing | Address | City/State/Zipcode | Phone Number | | Organization | | | | + +---------+ + + | EXTERNAL LAB | | | | + +---------+ + + Phosphorus (01/16/2015 3:21 AM PDT) + + + + + + | Component | Value | Ref Range | Performed | Pathologist | | | | | At | Signature | + + + + + + | PHOSPHORUS | 2.0 (L)Comment: Testing | 2.3 - 4.8 mg/dL | EXTERNAL | | | | performed at [facility], [address] | | LAB | | | | [address], | | | | | | [place] [address] | | | | + + + + + + + + | Specimen | + + | Blood specimen | | (specimen) | + + + +---------+ + + | Performing | Address | City/State/Zipcode | Phone Number | | Organization | | | | + +---------+ + + | EXTERNAL LAB | | | | + +---------+ + + Magnesium (01/16/2015 3:21 AM PDT) + + + + + + | Component | Value | Ref Range | Performed | Pathologist | | | | | At | Signature | + + + + + + | Magnesium | 1.2 (L)Comment: Testing | 1.7 - 2.4 mg/dL | EXTERNAL | | | | performed at [facility], [address] | | LAB | | | | [address], | | | | | | [place] [address] | | | | + + + + + + + + | Specimen | + + | Blood specimen | | (specimen) | + + + +---------+ + + | Performing | Address | City/State/Zipcode | Phone Number | | Organization | | | | + +---------+ + + | EXTERNAL LAB | | | | + +---------+ + + Comprehensive Metabolic Panel (01/16/2015 3:21 AM PDT) + + + + + + | Component | Value | Ref Range | Performed | Pathologist | | | | | At | Signature | + + + + + + | Na | 138Comment: Testing | 135 - 143 | EXTERNAL | | | | performed at [facility], [address] | mmol/L | LAB | | | | [address], | | | | | | [place] [address] | | | | + + + + + + | K | 3.0 (L)Comment: Testing | 3.5 - 4.9 | EXTERNAL | | | | performed at [facility], [address] | mmol/L | LAB | | | | [address], | | | | | | [place] [address] | | | | + + + + + + | Cl | 104Comment: Testing | 99 - 109 mmol/L | EXTERNAL | | | | performed at [facility], [address] | | LAB | | | | [address], | | | | | | [place] [address] | | | | + + + + + + | CO2 | 22 (L)Comment: Testing | 23 - 32 mmol/L | EXTERNAL | | | | performed at [facility], [address] | | LAB | | | | [address], | | | | | | [place] [address] | | | | + + + + + + | Anion Gap | 15Comment: Testing | 5 - 20 mmol/L | EXTERNAL | | | | performed at [facility], [address] | | LAB | | | | [address], | | | | | | [place] [address] | | | | + + + + + + | Glucose, | 82Comment: Testing | 65 - 99 mg/dL | EXTERNAL | | | Fasting | performed at [facility], [address] | | LAB | | | | [address], | | | | | | [place] [address] | | | | + + + + + + | BUN | 13Comment: Testing | 8 - 25 mg/dL | EXTERNAL | | | | performed at [facility], [address] | | LAB | | | | [address], | | | | | | [place] [address] | | | | + + + + + + | Creatinine | 1.01 (H)Comment: Testing | 0.50 - 1.00 | EXTERNAL | | | | performed at [facility], [address] | mg/dL | LAB | | | | [address], | | | | | | [place] [address] | | | | + + + + + + | BUN/Creatin | 13Comment: Testing | | EXTERNAL | | | ine Ratio | performed at [facility], [address] | | LAB | | | | [address], | | | | | | [place] [address] | | | | + + + + + + | Calcium | 7.7 (L)Comment: Testing | 8.5 - 10.5 | EXTERNAL | | | | performed at [facility], [address] | mg/dL | LAB | | | | [address], | | | | | | [place] [address] | | | | + + + + + + | Protein, | 7.1Comment: Testing | 6.3 - 8.2 g/dL | EXTERNAL | | | Total | performed at [facility], [address] | | LAB | | | | [address], | | | | | | [place] [address] | | | | + + + + + + | Albumin | 3.2 (L)Comment: Testing | 3.3 - 4.8 g/dL | EXTERNAL | | | | performed at [facility], [address] | | LAB | | | | [address], | | | | | | [place] [address] | | | | + + + + + + | Globulin | 3.9Comment: Testing | 1.3 - 4.9 g/dL | EXTERNAL | | | | performed at [facility], [address] | | LAB | | | | [address], | | | | | | [place] [address] | | | | + + + + + + | A/G Ratio | 0.8 (L)Comment: Testing | 1.0 - 2.4 | EXTERNAL | | | | performed at [facility], [address] | | LAB | | | | [address], | | | | | | [place] [address] | | | | + + + + + + | Bilirubin | 0.4Comment: Testing | 0.1 - 1.5 mg/dL | EXTERNAL | | | Total | performed at [facility], [address] | | LAB | | | | [address], | | | | | | [place] [address] | | | | + + + + + + | ALP, | 76Comment: Testing | 35 - 115 U/L | EXTERNAL | | | External | performed at [facility], [address] | | LAB | | | | [address], | | | | | | [place] [address] | | | | + + + + + + | AST | 26Comment: Testing | 10 - 45 U/L | EXTERNAL | | | | performed at [facility], [address] | | LAB | | | | [address], | | | | | | [place] [address] | | | | + + + + + + | ALT | 19Comment: Testing | 10 - 65 U/L | EXTERNAL | | | | performed at [facility], [address] | | LAB | | | | [address], | | | | | | [place] [address] | | | | + + + + + + | Estimated | 58 (L)Comment: GFR <60: | mL/min/1.73m2 | EXTERNAL | | | GFR | CHRONIC KIDNEY DISEASE, | | LAB | | | | IF FOUND OVER A 3 MONTH | | | | | | PERIOD.GFR <15: KIDNEY | | | | | | FAILURE.FOR | | | | | | AMERICANS, MULTIPLY THE | | | | | | CALCULATED GFR BY | | | | | | 1.210.Testing performed | | | | | | at [facility], [address] | | | | | | [address], | | | | | | [place] [address] | | | | + + + + + + + + | Specimen | + + | Blood specimen | | (specimen) | + + + +---------+ + + | Performing | Address | City/State/Zipcode | Phone Number | | Organization | | | | + +---------+ + + | EXTERNAL LAB | | | | + +---------+ + + Eosinophil Smear, Urine (01/15/2015 3:26 PM PDT) + + + + + + | Component | Value | Ref Range | Performed | Pathologist | | | | | At | Signature | + + + + + + | Eosinophil, | NO EOSINOPHILS | % | EXTERNAL | | | Urine | SEENComment: Testing | | LAB | | | | performed at [facility], [address] | | | | | | [facility], | | | | | | [place] [address] | | | | + + + + + + + + | Specimen | + + | | + + + +---------+ + + | Performing | Address | City/State/Zipcode | Phone Number | | Organization | | | | + +---------+ + + | EXTERNAL LAB | | | | + +---------+ + + Sodium, Urine, Random (01/15/2015 3:25 PM PDT) + + + + + + | Component | Value | Ref Range | Performed | Pathologist | | | | | At | Signature | + + + + + + | Sodium, | 136 (H)Comment: Testing | 90 - 104 mmol/L | EXTERNAL | | | Urine | performed at [facility], [address] | | LAB | | | Random | [address], | | | | | | [place] [address] | | | | + + + + + + + + | Specimen | + + | Urine specimen | | (specimen) | + + + +---------+ + + | Performing | Address | City/State/Zipcode | Phone Number | | Organization | | | | + +---------+ + + | EXTERNAL LAB | | | | + +---------+ + + Culture, Urine (01/15/2015 3:24 PM PDT) + + | Specimen | + + | Urine specimen | | (specimen) | + + + + + | Narrative | Performed At | + + + | Specimen Description URINE, COLLECTION NOT | EXTERNAL LAB | | GIVEN CULTURE NO GROWTH | | | Testing performed | | | at [facility], [address] [place] [address] | | + + + + +---------+ + + | Performing | Address | City/State/Zipcode | Phone Number | | Organization | | | | + +---------+ + + | EXTERNAL LAB | | | | + +---------+ + + ECHO Complete (01/15/2015 7:33 AM PDT) + + | Specimen | + + | | + + + + + | Impressions | Performed At | + + + | 1. Indication for study and thus clinical question is unknown. Minor | | | irregularities as below. | | + + + + + + | Narrative | Performed At | + + + | Patient Name: COLE ERNST Date of : 1945 | | | Performing Physician: Gil Coronel | | | MD | | | ------REPORT ADDENDED------ INDICATIONS abnormal ekg | | | CONCLUSIONS 1. Indication for study and thus | | | clinical question is unknown. Minor irregularities as below. | | | FINDINGS -------- [no group]: Indication for study and thus clinical | | | question is unknown. Results as below. ECG rhythm: Sinus rhythm. | | | Study: A 2-dimensional transthoracic echocardiogram with m-mode, | | | spectral and color flow Doppler was perfomed. Study: This was a | | | technically adequate study. Left Ventricle: Overall left ventricular | | | systolic function is normal with, an EF between 65 - 70 %. Left | | | Ventricle: The left ventricle cavity size is normal. Left Ventricle: | | | Left ventricular wall thickness is normal. Left Ventricle: | | | Pseudonormal LV diastolic filling pattern, consistent with elevated LA | | | pressure and moderate dysfunction (Grade II). Right Ventricle: The | | | right ventricle is normal in size. Left Atrium: The left atrium is | | | markedly dilated. Right Atrium: The right atrial size is normal. | | | Aortic Valve: The aortic valve is trileaflet and appears structurally | | | normal. Aortic Valve: There is no evidence of aortic regurgitation. | | | Aortic Valve: There is no evidence of aortic stenosis. Mitral Valve: | | | The mitral valve is normal. Mitral Valve: No mitral regurgitation. | | | Tricuspid Valve: The tricuspid valve appears structurally normal. | | | Tricuspid Valve: Mild tricuspid regurgitation present. Tricuspid | | | Valve: There is mild pulmonary hypertension. Tricuspid Valve: The | | | right ventricular systolic pressure (pulmonary artery systolic | | | pressure), as measured by Doppler, is 38.21mmHg. Pulmonic Valve: The | | | pulmonic valve is normal. Pericardium: Anterior echo free space | | | present. IVC/Hepatic Veins: The IVC is normal size (1.5-2.5cm) and | | | collapses >50% with sniff, consistent with central venous pressures of | | | 5-10mmHg. Pulmonary Artery: The pulmonary artery is moderately | | | dilated. MEASUREMENTS Ao asc: 3.02 cm Ao Diam: | | | 2.92 cm IVC: 2.23 cm LA Diam: 4.49 cm LA Major: 6.03 | | | cm EDV(Teich): 74.03 ml IVSd: 1.12 cm LVIDd: 4.09 cm | | | LVPWd: 1.04 cm LVOT Diam: 1.95 cm %FS: 37.64 % EF(Teich): | | | 68.20 % ESV(Teich): 23.53 ml IVSs: 1.19 cm LVIDs: 2.55 | | | cm LVPWs: 1.50 cm SV(Teich): 50.49 ml RA Major: 4.95 cm | | | RVIDd: 2.83 cm LAESV(A-L): 78.59 ml LAESV Index (A-L): | | | 40.51 ml/m2 LAAs A2C: 24.56 cm2 LAESV A-L A2C: 76.32 ml LAESV | | | MOD A2C: 73.52 ml LALs A2C: 6.71 cm LAAs A4C: 24.96 cm2 | | | LAESV A-L A4C: 79.86 ml LAESV MOD A4C: 77.20 ml LALs A4C: | | | 6.62 cm Ao Diam: 2.73 cm AV Cusp: 2.27 cm LA Diam: 4.29 cm | | | LA/Ao: 1.57 D-E Excursion: 2.11 cm E-F [place]: 0.09 m/s | | | EPSS: 0.48 cm HR: 77.41 BPM AV maxP.05 mmHg AV | | | meanP.21 mmHg AV Vmax: 1.73 m/s AV Vmean: 1.25 m/s AV | | | VTI: 34.68 cm BAYRON Vmax: 2.07 cm2 BAYRON (VTI): 1.85 cm2 LVCI | | | Dopp: 2.60 l/minm2 LVCO Dopp: 5.05 l/min HR: 78.81 BPM | | | LVOT maxP.75 mmHg LVOT meanP.84 mmHg LVSI Dopp: | | | 33.08 ml/m2 LVSV Dopp: 64.18 ml LVOT Vmax: 1.19 m/s LVOT | | | Vmean: 0.77 m/s LVOT VTI: 21.32 cm MCO: 394.46 ms MV A | | | Billy: 0.39 m/s MV DecT: 206.91 ms MV E Billy: 0.66 m/s MV E/A | | | Ratio: 1.69 MV PHT: 48.49 ms MVA By PHT: 4.53 cm2 MV A | | | Dur: 114.18 ms IVRT: 96.88 ms Septal e': 0.06 m/s Septal | | | E/e': 9.92 Lateral e': 0.11 m/s Lateral E/e': 6.00 P Vein | | | D: 0.62 m/s P Vein S/D Ratio: 0.87 P Vein S: 0.54 m/s HR: | | | 76.72 BPM PV maxP.32 mmHg PV meanP.85 mmHg PV | | | Vmax: 1.03 m/s PV Vmean: 0.62 m/s PV VTI: 13.14 cm RAP: | | | 10 mmHg RVSP: 38.20 mmHg TR maxP.20 mmHg TR Vmax: | | | 2.65 m/s TV A Billy: 0.66 m/s TV Dec [place]: 4.36 m/s2 TV Dec | | | Time: 184.41 ms TV E Billy: 0.80 m/s TV E/A Ratio: 1.21 | | | Clinical Services Professional: NEDRA Authenticated by: Gil Coronel MD Report | | | Date/Time: 01-15-2015 09:12:05 | | + + + + ---+ | Procedure Note | + ---+ | Manuel Blake Conversion - 01/05/2019 4:32 AM PDT Patient Name: Gwyn ERNST of | | : 1945 Performing Physician: Gil Coronel | | MD ------REPORT | | ADDENDED------INDICATIONS abnormal ekg CONCLUSIONS 1. Indication for | | study and thus clinical question is unknown. Minor irregularities as below. | | FINDINGS--------[no group]: Indication for study and thus clinical question is unknown. | | Results as below.ECG rhythm: Sinus rhythm.Study: A 2-dimensional transthoracic | | echocardiogram with m-mode, spectral and color flow Doppler was perfomed.Study: This was | | a technically adequate study.Left Ventricle: Overall left ventricular systolic function | | is normal with, an EF between 65 - 70 %.Left Ventricle: The left ventricle cavity size | | is normal.Left Ventricle: Left ventricular wall thickness is normal.Left Ventricle: | | Pseudonormal LV diastolic filling pattern, consistent with elevated LA pressure and | | moderate dysfunction (Grade II).Right Ventricle: The right ventricle is normal in | | size.Left Atrium: The left atrium is markedly dilated.Right Atrium: The right atrial | | size is normal.Aortic Valve: The aortic valve is trileaflet and appears structurally | | normal.Aortic Valve: There is no evidence of aortic regurgitation.Aortic Valve: There is | | no evidence of aortic stenosis.Mitral Valve: The mitral valve is normal.Mitral Valve: | | No mitral regurgitation.Tricuspid Valve: The tricuspid valve appears structurally | | normal.Tricuspid Valve: Mild tricuspid regurgitation present.Tricuspid Valve: There is | | mild pulmonary hypertension.Tricuspid Valve: The right ventricular systolic pressure | | (pulmonary artery systolic pressure), as measured by Doppler, is 38.21mmHg.Pulmonic | | Valve: The pulmonic valve is normal.Pericardium: Anterior echo free space | | present.IVC/Hepatic Veins: The IVC is normal size (1.5-2.5cm) and collapses >50% with | | sniff, consistent with central venous pressures of 5-10mmHg.Pulmonary Artery: The | | pulmonary artery is moderately dilated. MEASUREMENTS Ao asc: 3.02 cmAo | | Diam: 2.92 cmIVC: 2.23 cmLA Diam: 4.49 cmLA Major: 6.03 cmEDV(Teich): 74.03 | | mlIVSd: 1.12 cmLVIDd: 4.09 cmLVPWd: 1.04 cmLVOT Diam: 1.95 cm%FS: 37.64 | | %EF(Teich): 68.20 %ESV(Teich): 23.53 mlIVSs: 1.19 cmLVIDs: 2.55 cmLVPWs: 1.50 | | cmSV(Teich): 50.49 mlRA Major: 4.95 cmRVIDd: 2.83 cmLAESV(A-L): 78.59 mlLAESV | | Index (A-L): 40.51 ml/m2LAAs A2C: 24.56 [id number] A-L A2C: 76.32 mlLAESV MOD A2C: | | 73.52 mlLALs A2C: 6.71 cmLAAs A4C: 24.96 [id number] A-L A4C: 79.86 mlLAESV MOD A4C: | | 77.20 mlLALs A4C: 6.62 cmAo Diam: 2.73 cmAV Cusp: 2.27 cmLA Diam: 4.29 | | cmLA/Ao: 1.57D-E Excursion: 2.11 cmE-F [place]: 0.09 m/sEPSS: 0.48 cmHR: 77.41 | | BPMAV maxP.05 mmHgAV meanP.21 mmHgAV Vmax: 1.73 m/Sorin Vmean: 1.25 m/Sorin | | VTI: 34.68 cmAVA Vmax: 2.07 cm2AVA (VTI): 1.85 [id number] Dopp: 2.60 l/[id number] | | Dopp: 5.05 l/minHR: 78.81 BPMLVOT maxP.75 mmHgLVOT meanP.84 mmHgLVSI | | Dopp: 33.08 ml/m2LVSV Dopp: 64.18 mlLVOT Vmax: 1.19 m/sLVOT Vmean: 0.77 m/sLVOT | | VTI: 21.32 cmMCO: 394.46 msMV A Billy: 0.39 m/sMV DecT: 206.91 msMV E Billy: 0.66 | | m/sMV E/A Ratio: 1.69MV PHT: 48.49 msMVA By PHT: 4.53 cm2MV A Dur: 114.18 | | msIVRT: 96.88 msSeptal e': 0.06 m/sSeptal E/e': 9.92Lateral e': 0.11 m/sLateral | | E/e': 6.00P Vein D: 0.62 m/sP Vein S/D Ratio: 0.87P Vein S: 0.54 m/sHR: 76.72 | | BPMPV maxP.32 mmHgPV meanP.85 mmHgPV Vmax: 1.03 m/sPV Vmean: 0.62 m/sPV | | VTI: 13.14 cmRAP: 10 mmHgRVSP: 38.20 mmHgTR maxP.20 mmHgTR Vmax: 2.65 | | m/sTV A Billy: 0.66 m/sTV Dec [place]: 4.36 m/s2TV Dec Time: 184.41 msTV E Billy: 0.80 | | m/sTV E/A Ratio: 1.21 Clinical Services Professional: GDAuthenticated by: Gil Coronel [facility] | | Date/Time: 01-15-2015 09:12:05 IMPRESSION: 1. Indication for study and thus clinical | | question is unknown. Minor irregularities as below. | |Ao asc: 3.02 cm | |Ao Diam: 2.92 cm | |IVC: 2.23 cm | |LA Diam: 4.49 cm | |LA Major: 6.03 cm | |EDV(Teich): 74.03 ml | |IVSd: 1.12 cm | |LVIDd: 4.09 cm | |LVPWd: 1.04 cm | |LVOT Diam: 1.95 cm | |%FS: 37.64 % | |EF(Teich): 68.20 % | |ESV(Teich): 23.53 ml | |IVSs: 1.19 cm | |LVIDs: 2.55 cm | |LVPWs: 1.50 cm | |SV(Teich): 50.49 ml | |RA Major: 4.95 cm | |RVIDd: 2.83 cm | |LAESV(A-L): 78.59 ml | |LAESV Index (A-L): 40.51 ml/m2 | |LAAs A2C: 24.56 cm2 | |LAESV A-L A2C: 76.32 ml | |LAESV MOD A2C: 73.52 ml | |LALs A2C: 6.71 cm | |LAAs A4C: 24.96 cm2 | |LAESV A-L A4C: 79.86 ml | |LAESV MOD A4C: 77.20 ml | |LALs A4C: 6.62 cm | |Ao Diam: 2.73 cm | |AV Cusp: 2.27 cm | |LA Diam: 4.29 cm | |LA/Ao: 1.57 | |D-E Ex[place]: 2.11 cm | |E-F [place]: 0.09 m/s | |EPSS: 0.48 cm | |HR: 77.41 BPM | |AV maxP.05 mmHg | |AV meanP.21 mmHg | |AV Vmax: 1.73 m/s | |AV Vmean: 1.25 m/s | |AV VTI: 34.68 cm | |BAYRON Vmax: 2.07 cm2 | |BAYRON (VTI): 1.85 cm2 | |LVCI Dopp: 2.60 l/minm2 | |LVCO Dopp: 5.05 l/min | |HR: 78.81 BPM | |LVOT maxP.75 mmHg | |LVOT meanP.84 mmHg | |LVSI Dopp: 33.08 ml/m2 | |LVSV Dopp: 64.18 ml | |LVOT Vmax: 1.19 m/s | |LVOT Vmean: 0.77 m/s | |LVOT VTI: 21.32 cm | |MCO: 394.46 ms | |MV A Billy: 0.39 m/s | |MV DecT: 206.91 ms | |MV E Billy: 0.66 m/s | |MV E/A Ratio: 1.69 | |MV PHT: 48.49 ms | |MVA By PHT: 4.53 cm2 | |MV A Dur: 114.18 ms | |IVRT: 96.88 ms | |Septal e': 0.06 m/s | |Septal E/e': 9.92 | |Lateral e': 0.11 m/s | |Lateral E/e': 6.00 | |P Vein D: 0.62 m/s | |P Vein S/D Ratio: 0.87 | |P Vein S: 0.54 m/s | |HR: 76.72 BPM | |PV maxP.32 mmHg | |PV meanP.85 mmHg | |PV Vmax: 1.03 m/s | |PV Vmean: 0.62 m/s | |PV VTI: 13.14 cm | |RAP: 10 mmHg | |RVSP: 38.20 mmHg | |TR maxP.20 mmHg | |TR Vmax: 2.65 m/s | |TV A Billy: 0.66 m/s | |TV Dec [place]: 4.36 m/s2 | |TV Dec Time: 184.41 ms | |TV E Billy: 0.80 m/s | |TV E/A Ratio: 1.21 | | | |Clinical Services Professional: NEDRA | |Authenticated by: Gil Coronel MD | |Report Date/Time: 01-15-2015 09:12:05 | | | |IMPRESSION: | |1. Indication for study and thus clinical question is unknown. Minor irregularities as belo w. | + ---+ HISTORICAL MICROBIOLOGY RESULT (01/15/2015 6:52 AM PDT) + + | Specimen | + + | Stool specimen | | (specimen) | + + + + + | Narrative | Performed At | + + + | Toxigenic C Difficile NEGATIVE Testing | EXTERNAL LAB | | performed at [facility];[address];[place] [address] 027 NAP1 BI | | | 027 NAP1 BI PRESUMPTIVE NEGATIVE | | | Detection of 027 NAP1 BI strains of C. difficile is presumptive and | | | for epidemiological purposes and not intended to guide or monitor | | | treatment for C. difficile infections. Testing performed at [facility];[address] | | [address] [facility];[place] [address] | | + + + + +---------+ + + | Performing | Address | City/State/Zipcode | Phone Number | | Organization | | | | + +---------+ + + | EXTERNAL LAB | | | | + +---------+ + + C3 and C4 (01/15/2015 6:32 AM PDT) + + + + + + | Component | Value | Ref Range | Performed | Pathologist | | | | | At | Signature | + + + + + + | C3 | 93Comment: Testing | 90 - 180 mg/dL | EXTERNAL | | | COMPLEMENT | performed at [facility], [address] | | LAB | | | | [address], | | | | | | [place] [address] | | | | + + + + + + | Complement | 19.4Comment: Testing | 10 - 40 mg/dL | EXTERNAL | | | Comp 4 | performed at [facility], [address] | | LAB | | | | [address], | | | | | | [place] [address] | | | | + + + + + + + + | Specimen | + + | | + + + +---------+ + + | Performing | Address | City/State/Zipcode | Phone Number | | Organization | | | | + +---------+ + + | EXTERNAL LAB | | | | + +---------+ + + Troponin I (01/15/2015 6:32 AM PDT) + + + + + + | Component | Value | Ref Range | Performed | Pathologist | | | | | At | Signature | + + + + + + | Troponin I, | 0.484 (H)Comment: 0.00 | 0.00 - 0.10 | EXTERNAL | | | Qual | to 0.10 CONSISTENT | ng/mL | LAB | | | | WITH NORMAL | | | | | | POPULATION0.11 to 0.60 | | | | | | CONSISTENT WITH | | | | | | INCREASED RISK FOR | | | | | | ADVERSE OUTCOMES> 0.60 | | | | | | CONSISTENT | | | | | | WITH WHO CRITERIA FOR | | | | | | ACUTE SC Testing | | | | | | performed at [facility];[address] | | | | | | [address];[place], [place] | | | | | | [address] | | | | + + + + + + + + | Specimen | + + | Blood specimen | | (specimen) | + + + +---------+ + + | Performing | Address | City/State/Zipcode | Phone Number | | Organization | | | | + +---------+ + + | EXTERNAL LAB | | | | + +---------+ + + External Lab: GREGG (01/15/2015 6:32 AM PDT) + + + + + + | Component | Value | Ref Range | Performed | Pathologist | | | | | At | Signature | + + + + + + | WBC | 13.11 (H)Comment: | 3.80 - 11.00 | EXTERNAL | | | | Testing performed at | K/uL | LAB | | | | [facility];[address];[place] [address] | | | | + + + + + + | RED CELL | 3.27 (L)Comment: Testing | 3.70 - 5.10 | EXTERNAL | | | COUNT | performed at [facility];[address] | [address] | LAB | | | | [address];[place] | | | | | | [address] | | | | + + + + + + | Hgb | 11.2 (L)Comment: Testing | 11.3 - 15.5 | EXTERNAL | | | | performed at [facility];[address] | g/dL | LAB | | | | [address];[place] | | | | | | [address] | | | | + + + + + + | Hematocrit, | 34.4Comment: Testing | 34.0 - 46.0 % | EXTERNAL | | | POC | performed at [facility];[address] | | LAB | | | | [address];[place] | | | | | | [address] | | | | + + + + + + | MCV | 105.2 (H)Comment: | 80.0 - 100.0 fl | EXTERNAL | | | | Testing performed at | | LAB | | | | [facility];[address];[place] [address] | | | | + + + + + + | MCH | 34.2 (H)Comment: Testing | 27.0 - 34.0 pg | EXTERNAL | | | | performed at [facility];[address] | | LAB | | | | [address];[place] | | | | | | [address] | | | | + + + + + + | MCHC | 32.5Comment: Testing | 32.0 - 35.5 | EXTERNAL | | | | performed at [facility];[address] | g/dL | LAB | | | | [address];[place] | | | | | | [address] | | | | + + + + + + | RDW-CV | 50.3Comment: Testing | 37 - 53 fl | EXTERNAL | | | | performed at [facility];[address] | | LAB | | | | [address];[place] | | | | | | [address] | | | | + + + + + + | Platelet | 160Comment: Testing | 150 - 400 K/uL | EXTERNAL | | | Count | performed at [facility];[address] | | LAB | | | Plasma | [address];[place] | | | | | | [address] | | | | + + + + + + | MPV | 11.1Comment: Testing | fl | EXTERNAL | | | | performed at [facility];[address] | | LAB | | | | [address];[place] | | | | | | [address] | | | | + + + + + + | Differentia | AUTOMATEDComment: | | EXTERNAL | | | l Type | Testing performed at | | LAB | | | | [facility];[address];[place] [address] | | | | + + + + + + | % Segmented | 50.65Comment: Testing | % | EXTERNAL | | | | performed at [facility];[address] | | LAB | | | Neutrophils | [address];[place] | | | | | | [address] | | | | + + + + + + | % | 37.06Comment: Testing | % | EXTERNAL | | | Lymphocytes | performed at [facility];[address] | | LAB | | | | [address];[place] | | | | | | [address] | | | | + + + + + + | % Monocytes | 9.60Comment: Testing | % | EXTERNAL | | | | performed at [facility];[address] | | LAB | | | | [address];[place] | | | | | | [address] | | | | + + + + + + | % | 1.30Comment: Testing | % | EXTERNAL | | | Eosinophils | performed at [facility];[address] | | LAB | | | | [address];[place] | | | | | | [address] | | | | + + + + + + | % Basophils | 1.39Comment: Testing | % | EXTERNAL | | | | performed at [facility];[address] | | LAB | | | | [address];[place] | | | | | | [address] | | | | + + + + + + | Absolute | 6.64Comment: Testing | 1.90 - 7.40 | EXTERNAL | | | Segmented | performed at [facility];[address] | K/uL | LAB | | | Neutrophils | [address];[place] | | | | | | [address] | | | | + + + + + + | Absolute | 4.86 (H)Comment: Testing | 1.00 - 3.90 | EXTERNAL | | | Lymphocytes | performed at [facility];[address] | K/uL | LAB | | | | [address];[place] | | | | | | [address] | | | | + + + + + + | Absolute | 1.26 (H)Comment: Testing | 0.00 - 0.80 | EXTERNAL | | | Monocytes | performed at [facility];[address] | K/uL | LAB | | | | [address];[place] | | | | | | [address] | | | | + + + + + + | Absolute | 0.17Comment: Testing | 0.00 - 0.50 | EXTERNAL | | | Eosinophils | performed at [facility];[address] | K/uL | LAB | | | | [address];[place] | | | | | | [address] | | | | + + + + + + | Absolute | 0.18 (H)Comment: Testing | 0.00 - 0.10 | EXTERNAL | | | Basophils | performed at [facility];[address] | K/uL | LAB | | | | [address];[place] | | | | | | [address] | | | | + + + + + + + + | Specimen | + + | Blood specimen | | (specimen) | + + + +---------+ + + | Performing | Address | City/State/Zipcode | Phone Number | | Organization | | | | + +---------+ + + | EXTERNAL LAB | | | | + +---------+ + + Phosphorus (01/15/2015 6:32 AM PDT) + + + + + + | Component | Value | Ref Range | Performed | Pathologist | | | | | At | Signature | + + + + + + | PHOSPHORUS | 1.5 (L)Comment: Testing | 2.3 - 4.8 mg/dL | EXTERNAL | | | | performed at [facility];[address] | | LAB | | | | [facility];[place], [place] | | | | | | [address] | | | | + + + + + + + + | Specimen | + + | Blood specimen | | (specimen) | + + + +---------+ + + | Performing | Address | City/State/Zipcode | Phone Number | | Organization | | | | + +---------+ + + | EXTERNAL LAB | | | | + +---------+ + + Magnesium (01/15/2015 6:32 AM PDT) + + + + + + | Component | Value | Ref Range | Performed | Pathologist | | | | | At | Signature | + + + + + + | Magnesium | 1.7Comment: SLT | 1.7 - 2.4 mg/dL | EXTERNAL | | | | HEMOLYSISTesting | | LAB | | | | performed at [facility];[address] | | | | | | [address];[place], [place] | | | | | | [address] | | | | + + + + + + + + | Specimen | + + | Blood specimen | | (specimen) | + + + +---------+ + + | Performing | Address | City/State/Zipcode | Phone Number | | Organization | | | | + +---------+ + + | EXTERNAL LAB | | | | + +---------+ + + Comprehensive Metabolic Panel (01/15/2015 6:32 AM PDT) + + + + + + | Component | Value | Ref Range | Performed | Pathologist | | | | | At | Signature | + + + + + + | Na | 143Comment: Testing | 135 - 143 | EXTERNAL | | | | performed at [facility];[address] | mmol/L | LAB | | | | [address];[place] | | | | | | [address] | | | | + + + + + + | K | 3.7Comment: SLT | 3.5 - 4.9 | EXTERNAL | | | | HEMOLYSISTesting | mmol/L | LAB | | | | performed at [facility];[address] | | | | | | [address];[place] | | | | | | [address] | | | | + + + + + + | Cl | 110 (H)Comment: Testing | 99 - 109 mmol/L | EXTERNAL | | | | performed at [facility];[address] | | LAB | | | | [address];[place] | | | | | | [address] | | | | + + + + + + | CO2 | 24Comment: Testing | 23 - 32 mmol/L | EXTERNAL | | | | performed at [facility];[address] | | LAB | | | | [address];[place] | | | | | | [address] | | | | + + + + + + | Anion Gap | 13Comment: Testing | 5 - 20 mmol/L | EXTERNAL | | | | performed at [facility];[address] | | LAB | | | | [address];[place] | | | | | | [address] | | | | + + + + + + | Glucose, | 109 (H)Comment: Testing | 65 - 99 mg/dL | EXTERNAL | | | Fasting | performed at [facility];[address] | | LAB | | | | [address];[place] | | | | | | [address] | | | | + + + + + + | BUN | 24Comment: Testing | 8 - 25 mg/dL | EXTERNAL | | | | performed at [facility];[address] | | LAB | | | | [address];[place] | | | | | | [address] | | | | + + + + + + | Creatinine | 1.7 (H)Comment: Testing | 0.50 - 1.00 | EXTERNAL | | | | performed at [facility];[address] | mg/dL | LAB | | | | [address];[place] | | | | | | [address] | | | | + + + + + + | BUN/Creatin | 14Comment: Testing | | EXTERNAL | | | ine Ratio | performed at [facility];[address] | | LAB | | | | [address];[place] | | | | | | [address] | | | | + + + + + + | Calcium | 7.4 (L)Comment: Testing | 8.5 - 10.5 | EXTERNAL | | | | performed at [facility];[address] | mg/dL | LAB | | | | [address];[place] | | | | | | [address] | | | | + + + + + + | Protein, | 7.0Comment: Testing | 6.3 - 8.2 g/dL | EXTERNAL | | | Total | performed at [facility];[address] | | LAB | | | | [address];[place] | | | | | | [address] | | | | + + + + + + | Albumin | 2.6 (L)Comment: Testing | 3.3 - 4.8 g/dL | EXTERNAL | | | | performed at [facility];[address] | | LAB | | | | [address];[place] | | | | | | [address] | | | | + + + + + + | Globulin | 4.3Comment: Testing | 1.3 - 4.9 g/dL | EXTERNAL | | | | performed at [facility];[address] | | LAB | | | | [address];[place] | | | | | | [address] | | | | + + + + + + | A/G Ratio | 0.6 (L)Comment: Testing | 1.0 - 2.4 | EXTERNAL | | | | performed at [facility];[address] | | LAB | | | | [address];[place] | | | | | | [address] | | | | + + + + + + | Bilirubin | 0.4Comment: Testing | 0.1 - 1.5 mg/dL | EXTERNAL | | | Total | performed at [facility];[address] | | LAB | | | | [address];[place] | | | | | | [address] | | | | + + + + + + | ALP, | 92Comment: Testing | 35 - 115 U/L | EXTERNAL | | | External | performed at [facility];[address] | | LAB | | | | [address];[place] | | | | | | [address] | | | | + + + + + + | AST | 35Comment: SLT | 10 - 45 U/L | EXTERNAL | | | | HEMOLYSISTesting | | LAB | | | | performed at [facility];[address] | | | | | | [facility];[place] | | | | | | [address] | | | | + + + + + + | ALT | 29Comment: Testing | 10 - 65 U/L | EXTERNAL | | | | performed at [facility];[address] | | LAB | | | | [address];[place] | | | | | | [address] | | | | + + + + + + | Estimated | 32 (L)Comment: GFR <60: | mL/min/1.73m2 | EXTERNAL | | | GFR | CHRONIC KIDNEY DISEASE, | | LAB | | | | IF FOUND OVER A 3 MONTH | | | | | | PERIOD.GFR <15: KIDNEY | | | | | | FAILURE.FOR | | | | | | AMERICANS, MULTIPLY THE | | | | | | CALCULATED GFR BY | | | | | | 1.210.Testing performed | | | | | | at [facility];[address] [facility] | | | | | | [address];[place] [address] | | | | + + + + + + + + | Specimen | + + | Blood specimen | | (specimen) | + + + +---------+ + + | Performing | Address | City/State/Zipcode | Phone Number | | Organization | | | | + +---------+ + + | EXTERNAL LAB | | | | + +---------+ + + TSH (01/15/2015 6:23 AM PDT) + + + + + + | Component | Value | Ref Range | Performed | Pathologist | | | | | At | Signature | + + + + + + | TSH | 9.51 (H)Comment: Testing | 0.45 - 5.10 | EXTERNAL | | | | performed at [facility];[address] | uIU/mL | LAB | | | | [address];[place], [place] | | | | | | [address] | | | | + + + + + + + + | Specimen | + + | Blood specimen | | (specimen) | + + + +---------+ + + | Performing | Address | City/State/Zipcode | Phone Number | | Organization | | | | + +---------+ + + | EXTERNAL LAB | | | | + +---------+ + + ECG 12 lead (01/15/2015 6:15 AM PDT) + + + + + + | Component | Value | Ref Range | Performed | Pathologist | | | | | At | Signature | + + + + + + | DIAGNOSIS: | Normal sinus | | EXTERNAL | | | | rhythmNonspecific ST and | | LAB | | | | T wave | | | | | | abnormalityAbnormal | | | | | | ECGWhen compared with | | | | | | ECG of 14-JAN-2015 | | | | | | 16:01,No significant | | | | | | change was | | | | | | foundConfirmed by | | | | | | BON CORONEL ([id number]) on | | | | | | 01/15/2015 11:30:08 AM | | | | + + + + + + + + | Specimen | + + | | + + + + + | Narrative | Performed At | + + + | Historically converted procedure from [facility] environment | EXTERNAL LAB | + + + + +---------+ + + | Performing | Address | City/State/Zipcode | Phone Number | | Organization | | | | + +---------+ + + | EXTERNAL LAB | | | | + +---------+ + + Troponin I (01/15/2015 12:51 AM PDT) + + + + + + | Component | Value | Ref Range | Performed | Pathologist | | | | | At | Signature | + + + + + + | Troponin I, | 0.509 (H)Comment: 0.00 | 0.00 - 0.10 | EXTERNAL | | | Qual | to 0.10 CONSISTENT | ng/mL | LAB | | | | WITH NORMAL | | | | | | POPULATION0.11 to 0.60 | | | | | | CONSISTENT WITH | | | | | | INCREASED RISK FOR | | | | | | ADVERSE OUTCOMES> 0.60 | | | | | | CONSISTENT | | | | | | WITH WHO CRITERIA FOR | | | | | | ACUTE SC Testing | | | | | | performed at [facility];[address] | | | | | | [facility];[place], [place] | | | | | | [address] | | | | + + + + + + + + | Specimen | + + | Blood specimen | | (specimen) | + + + +---------+ + + | Performing | Address | City/State/Zipcode | Phone Number | | Organization | | | | + +---------+ + + | EXTERNAL LAB | | | | + +---------+ + + Culture, Blood (01/15/2015 12:49 AM PDT) + + | Specimen | + + | Blood specimen | | (specimen) | + + + + + | Narrative | Performed At | + + + | Specimen Description BLOOD, PERIPHERAL DRAW | EXTERNAL LAB | | CULTURE NO GROWTH | | | Testing performed at [facility], | | | [address] [place] [address] | | + + + + +---------+ + + | Performing | Address | City/State/Zipcode | Phone Number | | Organization | | | | + +---------+ + + | EXTERNAL LAB | | | | + +---------+ + + CT Abdomen Pelvis wo Contrast (01/14/2015 9:03 PM PDT) + + | Specimen | + + | | + + + + + | Impressions | Performed At | + + + | 1. Irregular or infiltrative segment of wall thickening of a | | | short segment of the the proximal large bowel near the hepatic | | | flexure. No obstruction. Given the patient's age-would correlate | | | with colonoscopy. No extraluminal lesion, does not seem masslike-but | | | malignancy cannot be excluded. A short segment colitis or infiltration | | | is a differential consideration 2. Extensive diverticulosis of | | | the sigmoid bowel, but no high-grade inflammatory change or | | | extraluminal fluid collection | | + + + + + + | Narrative | Performed At | + + + | HISTORY: 69 year-old female with abdominal pain TECHNIQUE: CT | | | through the abdomen and pelvis. Performed without the administration | | | of IV contrast. Examination performed with enteric contrast. 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 Lung | | | bases demonstrate atelectasis and some chronic fibrotic appearing | | | changes to the lower lung muñoz-symmetric. No consolidation or | | | effusion. Bones are without aggressive lesion or fracture. | | | Nonaggressive and degenerative changes with demineralization- not | | | uncommon for age. Soft tissue windows of the abdomen reveal no | | | fluid collection the gallbladder fossa. Normal pancreas, liver-the | | | spleen is absent. Kidneys are without stone or dense lesion with a | | | low-density cystic structure arising from the posterior cortex of the | | | left kidney on image 33-about 14 mm in size. Vasculopathy the | | | aorta and branch vessels. Extensive diverticulosis of the sigmoid | | | bowel, without evidence of abnormal fluid collection in only minimal | | | reticular changes in the adjacent fat. No hernia. No pelvic | | | sidewall or other lymphadenopathy. Pelvic vascular and pericolonic | | | calcifications, but no hydroureter or proven stones within either | | | ureter There is diffuse lipomatous infiltration of the ileocecal | | | junction. The appendix is not seen. There may be some slight | | | infiltrative wall thickening of a segment of the colon on image 32 | | | series 3, but no obstruction | | + + + + + | Procedure Note | + + | Hayden, Rad Conversion - 01/05/2019 4:32 AM PDT HISTORY: 69 year-old female with | | abdominal pain TECHNIQUE: CT through the abdomen and pelvis. Performed without the | | administration of IV contrast. Examination performed with enteric contrast. 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 Lung bases demonstrate atelectasis and some chronic fibrotic appearing | | changes to the lower lung muñoz-symmetric. No consolidation or effusion. Bones are | | without aggressive lesion or fracture. Nonaggressive and degenerative changes with | | demineralization- not uncommon for age. Soft tissue windows of the abdomen reveal no | | fluid collection the gallbladder fossa. Normal pancreas, liver-the spleen is absent. | | Kidneys are without stone or dense lesion with a low-density cystic structure arising | | from the posterior cortex of the left kidney on image 33-about 14 mm in size. | | Vasculopathy the aorta and branch vessels. Extensive diverticulosis of the sigmoid | | bowel, without evidence of abnormal fluid collection in only minimal reticular changes | | in the adjacent fat. No hernia. No pelvic sidewall or other lymphadenopathy. Pelvic | | vascular and pericolonic calcifications, but no hydroureter or proven stones within | | either ureter There is diffuse lipomatous infiltration of the ileocecal junction. The | | appendix is not seen. There may be some slight infiltrative wall thickening of a segment | | of the colon on image 32 series 3, but no obstruction IMPRESSION: 1. Irregular or | | infiltrative segment of wall thickening of a short segment of the the proximal large | | bowel near the hepatic flexure. No obstruction. Given the patient's age-would correlate | | with colonoscopy. No extraluminal lesion, does not seem masslike-but malignancy cannot | | be excluded. A short segment colitis or infiltration is a differential consideration 2. | | Extensive diverticulosis of the sigmoid bowel, but no high-grade inflammatory change or | | extraluminal fluid collection Electronically signed by Gary Wong MD on | | 01/14/2015 10:11 PM | |There is diffuse lipomatous infiltration of the ileocecal junction. | | | |The appendix is not seen. There may be some slight infiltrative wall thickening of a segmen t of the colon on image 32 series 3, but no obstruction | | | | | |IMPRESSION: | | | |1. Irregular or infiltrative segment of wall thickening of a short segment of the the proxi mal large bowel near the hepatic flexure. No obstruction. | | | |Given the patient's age-would correlate with colonoscopy. No extraluminal lesion, does not seem masslike-but malignancy cannot be excluded. A short segment colitis or infiltration is a differential consideration | | | |2. Extensive diverticulosis of the sigmoid bowel, but no high-grade inflammatory change or extraluminal fluid collection | | | | | | | | | + + MRSA NAAT (01/14/2015 7:17 PM PDT) + + | Specimen | + + | | + + + + + | Narrative | Performed At | + + + | SOURCE NARES(NOSE) MRSA | EXTERNAL LAB | | PCR NEGATIVE Testing | | | performed at [facility];[address] [place] [address];[place] [address] | | + + + + +---------+ + + | Performing | Address | City/State/Zipcode | Phone Number | | Organization | | | | + +---------+ + + | EXTERNAL LAB | | | | + +---------+ + + Procalcitonin (01/14/2015 7:07 PM PDT) + + + + + + | Component | Value | Ref Range | Performed | Pathologist | | | | | At | Signature | + + + + + + | PROCALCITON | 0.29Comment: | ng/mL | EXTERNAL | | | IN | INTERPRETIVE | | LAB | | | | INFORMATION: | | | | | | PROCALCITONIN PCT <= | | | | | | 0.5 ng/mL: Low risk | | | | | | for progression to | | | | | | severe systemic | | | | | | bacterial infection | | | | | | (severe sepsis/septic | | | | | | shock). Does not | | | | | | exclude an infection, | | | | | | because localized | | | | | | infections may be | | | | | | associated with such low | | | | | | levels. If PCT is | | | | | | measured very early | | | | | | after bacterial | | | | | | challenge (usually <6 | | | | | | hours), results may | | | | | | still be low and | | | | | | should re-assess PCT | | | | | | 6-24 hours later. PCT | | | | | | >0.5 and <= 2 ng/mL: | | | | | | Moderate risk for | | | | | | progression to severe | | | | | | systemic infection | | | | | | (severe sepsis/septic | | | | | | shock). Other | | | | | | conditions are known | | | | | | to elevate PCT, patient | | | | | | should be closely | | | | | | monitored both | | | | | | clinically and by | | | | | | re-assessing PCT | | | | | | within 6-24 hours. PCT > | | | | | | 2 ng/mL: High | | | | | | likelihood for | | | | | | progression to severe | | | | | | systemic bacterial | | | | | | infection (severe | | | | | | sepsis/septic shock). | | | | | | PCT >= 10 ng/mL: | | | | | | High likelihood of | | | | | | severe sepsis or septic | | | | | | shock.Testing performed | | | | | | at [facility];[address] [place] [address] | | | | | | [facility];[place] [address] | | | | + + + + + + + + | Specimen | + + | | + + + +---------+ + + | Performing | Address | City/State/Zipcode | Phone Number | | Organization | | | | + +---------+ + + | EXTERNAL LAB | | | | + +---------+ + + Sedimentation rate, automated (01/14/2015 7:07 PM PDT) + + + + + + | Component | Value | Ref Range | Performed | Pathologist | | | | | At | Signature | + + + + + + | Sed Rate | 42 (H)Comment: Testing | 0 - 30 mm/Hr | EXTERNAL | | | | performed at [facility];[address] | | LAB | | | | [address];[place], [place] | | | | | | [address] | | | | + + + + + + + + | Specimen | + + | Blood specimen | | (specimen) | + + + +---------+ + + | Performing | Address | City/State/Zipcode | Phone Number | | Organization | | | | + +---------+ + + | EXTERNAL LAB | | | | + +---------+ + + C-Reactive Protein (01/14/2015 7:07 PM PDT) + + + + + + | Component | Value | Ref Range | Performed | Pathologist | | | | | At | Signature | + + + + + + | CRP | 0.5 (H)Comment: Testing | mg/dL | EXTERNAL | | | | performed at [facility] | | LAB | | | | [address];[place] | | | | | | [address] | | | | + + + + + + + + | Specimen | + + | Blood specimen | | (specimen) | + + + +---------+ + + | Performing | Address | City/State/Zipcode | Phone Number | | Organization | | | | + +---------+ + + | EXTERNAL LAB | | | | + +---------+ + + Lactic Acid (01/14/2015 7:07 PM PDT) + + + + + + | Component | Value | Ref Range | Performed | Pathologist | | | | | At | Signature | + + + + + + | Lactate | 1.1Comment: Testing | 0.4 - 2.0 | EXTERNAL | | | | performed at [facility];[address] | mmol/L | LAB | | | | [address];[place], [place] | | | | | | [address] | | | | + + + + + + + + | Specimen | + + | Blood specimen | | (specimen) | + + + +---------+ + + | Performing | Address | City/State/Zipcode | Phone Number | | Organization | | | | + +---------+ + + | EXTERNAL LAB | | | | + +---------+ + + Folate (01/14/2015 7:07 PM PDT) + + + + + + | Component | Value | Ref Range | Performed | Pathologist | | | | | At | Signature | + + + + + + | Folate | 14.4Comment: Testing | ng/mL | EXTERNAL | | | | performed at [facility], [address] | | LAB | | | | [address], | | | | | | [place] [address] | | | | + + + + + + + + | Specimen | + + | Blood specimen | | (specimen) | + + + +---------+ + + | Performing | Address | City/State/Zipcode | Phone Number | | Organization | | | | + +---------+ + + | EXTERNAL LAB | | | | + +---------+ + + Vitamin B-12 (01/14/2015 7:07 PM PDT) + + + + + + | Component | Value | Ref Range | Performed | Pathologist | | | | | At | Signature | + + + + + + | VITAMIN | >2000 (H)Comment: | 254 - 1,320 | EXTERNAL | | | B-12 | Testing performed at | pg/mL | LAB | | | | [facility], [address] | | | | | | [place] | | | | | | [address] | | | | + + + + + + + + | Specimen | + + | Blood specimen | | (specimen) | + + + +---------+ + + | Performing | Address | City/State/Zipcode | Phone Number | | Organization | | | | + +---------+ + + | EXTERNAL LAB | | | | + +---------+ + + XR Chest 1 Vw (01/14/2015 6:56 PM PDT) + + | Specimen | + + | | + + + + + | Impressions | Performed At | + + + | 1. Hypoinflated chest, but no evident infiltrate | | | | | + + + + + + | Narrative | Performed At | + + + | HISTORY: 69 years old female, infection TECHNIQUE: Computer | | | enhanced AP upright portable radiographic examination of the chest, 25 | | | December 2014. Prior study for comparison -- none FINDINGS: | | | Mediastinum -- cardiomegaly. Some vascular calcification. Lung | | | markings are somewhat coarse.Atelectasis is probably confounding as | | | the patient is hypoinflated. No focal infiltrate or evidence of | | | advanced pulmonary venous hypertension. Lung volumes are symmetric | | | although low. Degenerative change the spine and shoulders and | | | there are extensive clips in the gallbladder fossa and below the left | | | hemidiaphragm. | | + + + + + | Procedure Note | + + | Hayden, Rad Conversion - 01/05/2019 4:32 AM PDT HISTORY: 69 years old female, infection | | TECHNIQUE: Computer enhanced AP upright portable radiographic examination of the chest, | | 14 January 2015. Prior study for comparison -- none FINDINGS: Mediastinum -- | | cardiomegaly. Some vascular calcification. Lung markings are somewhat coarse.Atelectasis | | is probably confounding as the patient is hypoinflated. No focal infiltrate or evidence | | of advanced pulmonary venous hypertension. Lung volumes are symmetric although low. | | Degenerative change the spine and shoulders and there are extensive clips in the | | gallbladder fossa and below the left hemidiaphragm. IMPRESSION: 1. Hypoinflated chest, | | but no evident infiltrate | | 7:11 PM | |Degenerative change the spine and shoulders and there are extensive clips in the gallbladde r fossa and below the left hemidiaphragm. | | | |IMPRESSION: | | | |1. Hypoinflated chest, but no evident infiltrate | | | | | | | | | + + ECG 12 lead (01/14/2015 4:01 PM PDT) + + + + + + | Component | Value | Ref Range | Performed | Pathologist | | | | | At | Signature | + + + + + + | DIAGNOSIS: | Normal sinus rhythmLeft | | EXTERNAL | | | | ventricular hypertrophy | | LAB | | | | with repolarization | | | | | | abnormalityAbnormal | | | | | | ECGNo previous ECGs | | | | | | availableThis ECG | | | | | | contains Unconfirmed | | | | | | Interpretation | | | | | | Statements. See ED | | | | | | Record for Physician | | | | | | Interpretation. | | | | | | Confirmed by MUSE READ | | | | | | ONLY, -COMPUTER ([id number]), | | | | | | film editor Shala Gramajo | | | | | | (25) on 01/14/2015 | | | | | | 11:17:50 PM | | | | + + + + + + + + | Specimen | + + | | + + + + + | Narrative | Performed At | + + + | Historically converted procedure from [employer] environment | EXTERNAL LAB | + + + + +---------+ + + | Performing | Address | City/State/Zipcode | Phone Number | | Organization | | | | + +---------+ + + | EXTERNAL LAB | | | | + +---------+ + + Uric Acid (01/14/2015 3:49 PM PDT) + + + + + + | Component | Value | Ref Range | Performed | Pathologist | | | | | At | Signature | + + + + + + | Uric Acid | 9.0 (H)Comment: Testing | 2.2 - 7.1 mg/dL | EXTERNAL | | | | performed at [facility];[address] | | LAB | | | | [address];[place] | | | | | | [address] | | | | + + + + + + + + | Specimen | + + | Blood specimen | | (specimen) | + + + +---------+ + + | Performing | Address | City/State/Zipcode | Phone Number | | Organization | | | | + +---------+ + + | EXTERNAL LAB | | | | + +---------+ + + Phosphorus (01/14/2015 3:49 PM PDT) + + + + + + | Component | Value | Ref Range | Performed | Pathologist | | | | | At | Signature | + + + + + + | PHOSPHORUS | 1.4 (L)Comment: Testing | 2.3 - 4.8 mg/dL | EXTERNAL | | | | performed at [facility];[address] | | LAB | | | | [facility];[place], [place] | | | | | | [address] | | | | + + + + + + + + | Specimen | + + | Blood specimen | | (specimen) | + + + +---------+ + + | Performing | Address | City/State/Zipcode | Phone Number | | Organization | | | | + +---------+ + + | EXTERNAL LAB | | | | + +---------+ + + Magnesium (01/14/2015 3:49 PM PDT) + + + + + + | Component | Value | Ref Range | Performed | Pathologist | | | | | At | Signature | + + + + + + | Magnesium | 1.9Comment: SLT | 1.7 - 2.4 mg/dL | EXTERNAL | | | | HEMOLYSISTesting | | LAB | | | | performed at [facility] | | | | | | [address];[place], [place] | | | | | | [address] | | | | + + + + + + + + | Specimen | + + | Blood specimen | | (specimen) | + + + +---------+ + + | Performing | Address | City/State/Zipcode | Phone Number | | Organization | | | | + +---------+ + + | EXTERNAL LAB | | | | + +---------+ + + Lipase (01/14/2015 3:49 PM PDT) + + + + + + | Component | Value | Ref Range | Performed | Pathologist | | | | | At | Signature | + + + + + + | Lipase | 559 (H)Comment: Testing | 73 - 393 U/L | EXTERNAL | | | | performed at [facility];[address] | | LAB | | | | [address];[place], [place] | | | | | | [address] | | | | + + + + + + + + | Specimen | + + | Blood specimen | | (specimen) | + + + +---------+ + + | Performing | Address | City/State/Zipcode | Phone Number | | Organization | | | | + +---------+ + + | EXTERNAL LAB | | | | + +---------+ + + Amylase (01/14/2015 3:49 PM PDT) + + + + + + | Component | Value | Ref Range | Performed | Pathologist | | | | | At | Signature | + + + + + + | Amylase | 85Comment: Testing | 25 - 115 U/L | EXTERNAL | | | | performed at [facility];[address] | | LAB | | | | [address];[place] | | | | | | [address] | | | | + + + + + + + + | Specimen | + + | Blood specimen | | (specimen) | + + + +---------+ + + | Performing | Address | City/State/Zipcode | Phone Number | | Organization | | | | + +---------+ + + | EXTERNAL LAB | | | | + +---------+ + + HISTORICAL LAB PANEL RESULT (01/14/2015 3:48 PM PDT) + + + + + + | Component | Value | Ref Range | Performed | Pathologist | | | | | At | Signature | + + + + + + | WBC | 16.19 (H)Comment: | 3.80 - 11.00 | EXTERNAL | | | | Testing performed at | K/uL | LAB | | | | [facility];[address] | | | | | | [place] [address] | | | | + + + + + + | RED CELL | 4.17Comment: Testing | 3.70 - 5.10 | EXTERNAL | | | COUNT | performed at [facility];[address] | M/uL | LAB | | | | [address];[place] | | | | | | [address] | | | | + + + + + + | Hgb | 14.6Comment: Testing | 11.3 - 15.5 | EXTERNAL | | | | performed at [facility];[address] | g/dL | LAB | | | | [address];[place] | | | | | | [address] | | | | + + + + + + | Hematocrit, | 42.7Comment: Testing | 34.0 - 46.0 % | EXTERNAL | | | POC | performed at [facility];[address] | | LAB | | | | [address];[place] | | | | | | [address] | | | | + + + + + + | MCV | 102.3 (H)Comment: | 80.0 - 100.0 fl | EXTERNAL | | | | Testing performed at | | LAB | | | | [facility];[address] | | | | | | [place] [address] | | | | + + + + + + | MCH | 35.0 (H)Comment: Testing | 27.0 - 34.0 pg | EXTERNAL | | | | performed at [facility];[address] | | LAB | | | | [address];[place] | | | | | | [address] | | | | + + + + + + | MCHC | 34.2Comment: Testing | 32.0 - 35.5 | EXTERNAL | | | | performed at [facility];[address] | g/dL | LAB | | | | [address];[place] | | | | | | [address] | | | | + + + + + + | RDW-CV | 49.9Comment: Testing | 37 - 53 fl | EXTERNAL | | | | performed at [facility];[address] | | LAB | | | | [address];[place] | | | | | | [address] | | | | + + + + + + | Platelet | 209Comment: Testing | 150 - 400 K/uL | EXTERNAL | | | Count | performed at [facility];[address] | | LAB | | | Plasma | [address];[place] | | | | | | [address] | | | | + + + + + + | MPV | 11.1Comment: Testing | fl | EXTERNAL | | | | performed at [facility];[address] | | LAB | | | | [address];[place] | | | | | | [address] | | | | + + + + + + | RBC | 1+Comment: GIANT | | EXTERNAL | | | Morphology | PLATELETS1+MACROTesting | | LAB | | | | performed at [facility];[address] | | | | | | [address];[place] | | | | | | [address] | | | | | |Testing performed at [facility];[address];[place] [address] | | | | | | | | | | + + + + + + | Differentia | MANUALComment: Testing | | EXTERNAL | | | l Type | performed at [facility];[address] | | LAB | | | | [address];[place] | | | | | | [address] | | | | + + + + + + | Segmented | 58Comment: Testing | % | EXTERNAL | | | Neutrophils | performed at [facility];[address] | | LAB | | | Manual | [address];[place] | | | | | | [address] | | | | + + + + + + | Lymphocytes | 32Comment: Testing | % | EXTERNAL | | | Manual | performed at [facility];[address] | | LAB | | | | [address];[place] | | | | | | [address] | | | | + + + + + + | Monocytes | 9Comment: Testing | % | EXTERNAL | | | Manual | performed at [facility];[address] | | LAB | | | | [address];[place] | | | | | | [address] | | | | + + + + + + | Eosinophils | 1Comment: Testing | % | EXTERNAL | | | Manual | performed at [facility];[address] | | LAB | | | | [address];[place] | | | | | | [address] | | | | + + + + + + | Absolute | 9.39 (H)Comment: Testing | 1.90 - 7.40 | EXTERNAL | | | Neutrophils | performed at [facility];[address] | K/uL | LAB | | | | [address];[place] | | | | | | [address] | | | | + + + + + + | Absolute | 5.18 (H)Comment: Testing | 1.00 - 3.90 | EXTERNAL | | | Lymphocytes | performed at [facility];[address] | K/uL | LAB | | | | [address];[place] | | | | | | [address] | | | | + + + + + + | Absolute | 1.46 (H)Comment: Testing | 0.00 - 0.80 | EXTERNAL | | | Monocytes | performed at [facility];[address] | K/uL | LAB | | | | [address];[place] | | | | | | [address] | | | | + + + + + + | Absolute | 0.16Comment: Testing | 0.00 - 0.50 | EXTERNAL | | | Eosinophils | performed at [facility];[address] | K/uL | LAB | | | | [address];[place] | | | | | | [address] | | | | + + + + + + | Na | 140Comment: Testing | 135 - 143 | EXTERNAL | | | | performed at [facility];[address] | mmol/L | LAB | | | | [address];[place] | | | | | | [address] | | | | + + + + + + | K | 2.8 (L)Comment: Testing | 3.5 - 4.9 | EXTERNAL | | | | performed at [facility];[address] | mmol/L | LAB | | | | [address];[place] | | | | | | [address] | | | | + + + + + + | Cl | 100Comment: Testing | 99 - 109 mmol/L | EXTERNAL | | | | performed at [facility];[address] | | LAB | | | | [address];[place] | | | | | | [address] | | | | + + + + + + | CO2 | 29Comment: Testing | 23 - 32 mmol/L | EXTERNAL | | | | performed at [facility];[address] | | LAB | | | | [address];[place] | | | | | | [address] | | | | + + + + + + | Anion Gap | 14Comment: Testing | 5 - 20 mmol/L | EXTERNAL | | | | performed at [facility];[address] | | LAB | | | | [address];[place] | | | | | | [address] | | | | + + + + + + | Glucose, | 107 (H)Comment: Testing | 65 - 99 mg/dL | EXTERNAL | | | Fasting | performed at [facility];[address] | | LAB | | | | [address];[place] | | | | | | [address] | | | | + + + + + + | BUN | 28 (H)Comment: Testing | 8 - 25 mg/dL | EXTERNAL | | | | performed at [facility];[address] | | LAB | | | | [address];[place] | | | | | | [address] | | | | + + + + + + | Creatinine | 2.4 (H)Comment: Testing | 0.50 - 1.00 | EXTERNAL | | | | performed at [facility];[address] | mg/dL | LAB | | | | [address];[place] | | | | | | [address] | | | | + + + + + + | BUN/Creatin | 12Comment: Testing | | EXTERNAL | | | ine Ratio | performed at [facility];[address] | | LAB | | | | [address];[place] | | | | | | [address] | | | | + + + + + + | Calcium | 8.1 (L)Comment: Testing | 8.5 - 10.5 | EXTERNAL | | | | performed at [facility];[address] | mg/dL | LAB | | | | [address];[place] | | | | | | [address] | | | | + + + + + + | Protein, | 9.3 (H)Comment: Testing | 6.3 - 8.2 g/dL | EXTERNAL | | | Total | performed at [facility];[address] | | LAB | | | | [address];[place] | | | | | | [address] | | | | + + + + + + | Albumin | 3.3Comment: Testing | 3.3 - 4.8 g/dL | EXTERNAL | | | | performed at [facility];[address] | | LAB | | | | [address];[place] | | | | | | [address] | | | | + + + + + + | Globulin | 6.0 (H)Comment: Testing | 1.3 - 4.9 g/dL | EXTERNAL | | | | performed at [facility];[address] | | LAB | | | | [address];[place] | | | | | | [address] | | | | + + + + + + | A/G Ratio | 0.5 (L)Comment: Testing | 1.0 - 2.4 | EXTERNAL | | | | performed at [facility];[address] | | LAB | | | | [address];[place] | | | | | | [address] | | | | + + + + + + | Bilirubin | 0.4Comment: Testing | 0.1 - 1.5 mg/dL | EXTERNAL | | | Total | performed at [facility];[address] | | LAB | | | | [address];[place] | | | | | | [address] | | | | + + + + + + | ALP, | 129 (H)Comment: Testing | 35 - 115 U/L | EXTERNAL | | | External | performed at [facility];[address] | | LAB | | | | [address];[place] | | | | | | [address] | | | | + + + + + + | AST | 39Comment: Testing | 10 - 45 U/L | EXTERNAL | | | | performed at [facility];[address] | | LAB | | | | [address];[place] | | | | | | [address] | | | | + + + + + + | ALT | 38Comment: Testing | 10 - 65 U/L | EXTERNAL | | | | performed at [facility];[address] | | LAB | | | | [address];[place] | | | | | | [address] | | | | + + + + + + | Estimated | 21 (L)Comment: GFR <60: | mL/min/1.73m2 | EXTERNAL | | | GFR | CHRONIC KIDNEY DISEASE, | | LAB | | | | IF FOUND OVER A 3 MONTH | | | | | | PERIOD.GFR <15: KIDNEY | | | | | | FAILURE.FOR | | | | | | AMERICANS, MULTIPLY THE | | | | | | CALCULATED GFR BY | | | | | | 1.210.Testing performed | | | | | | at [facility];[address] | | | | | | [address];[place] [address] | | | | + + + + + + | CK, Total | 151Comment: Testing | 30 - 240 U/L | EXTERNAL | | | | performed at [facility];[address] | | LAB | | | | [address];[place] | | | | | | [address] | | | | + + + + + + | INR | 1.3Comment: REFERENCE | | EXTERNAL | | | | RANGE:0.9 - 1.2 | | LAB | | | | NON-ANTICOAGULATED2.0 | | | | | | - 3.0 ALL OTHER | | | | | | THERAPEUTIC | | | | | | INDICATIONS2.5 - 3.5 | | | | | | MECHANICAL HEART VALVES, | | | | | | RECURRENT OR SYSTEMIC | | | | | | EMBOLISMTesting | | | | | | performed at [facility];[address] | | | | | | [address];[place] | | | | | | [address] | | | | + + + + + + | aPTT, | 26Comment: Testing | 23 - 32 seconds | EXTERNAL | | | Patient | performed at [facility];[address] | | LAB | | | | [address];[place] | | | | | | [address] | | | | + + + + + + | CK-MB | 3.9 (H)Comment: Testing | 0.5 - 3.6 ng/mL | EXTERNAL | | | | performed at [facility];[address] | | LAB | | | | [address];[place] | | | | | | [address] | | | | + + + + + + | CK-MB Index | 2.6Comment: CK INDEX | | EXTERNAL | | | | INTERPRETATION: | | LAB | | | | MMB ng/mL | | | | | | | | | | | |CK INDEX INTERPRETATION: | | | | | | MMB ng/mL | | | | | | | | | | + + + + + + + + | Specimen | + + | | + + + +---------+ + + | Performing | Address | City/State/Zipcode | Phone Number | | Organization | | | | + +---------+ + + | EXTERNAL LAB | | | | + +---------+ + + Troponin I (01/14/2015 3:48 PM PDT) + + + + + + | Component | Value | Ref Range | Performed | Pathologist | | | | | At | Signature | + + + + + + | Troponin I, | 0.555 (H)Comment: 0.00 | 0.00 - 0.10 | EXTERNAL | | | Qual | to 0.10 CONSISTENT | ng/mL | LAB | | | | WITH NORMAL | | | | | | POPULATION0.11 to 0.60 | | | | | | CONSISTENT WITH | | | | | | INCREASED RISK FOR | | | | | | ADVERSE OUTCOMES> 0.60 | | | | | | CONSISTENT | | | | | | WITH WHO CRITERIA FOR | | | | | | ACUTE SC Testing | | | | | | performed at [facility];[address] | | | | | | [address] [facility];[place], [place] | | | | | | [address] | | | | + + + [...] + documented in this encounter Visit Diagnoses + + | Diagnosis | + + | Near syncope Syncope and collapse | + + | Elevated troponin Other abnormal blood chemistry | + + | Non-STEMI (non-ST elevated myocardial infarction) (HCC) Acute myocardial infarction, | | subendocardial infarction, episode of care unspecified | + + | CKD (chronic kidney disease), unspecified stage | + + | Leukocytosis Leukocytosis, unspecified | + + | ZULAY (acute kidney injury) (HCC) Acute kidney failure, unspecified | + + | Liver replaced by transplant (HCC) Liver replaced by transplant | + + documented in this encounter
--- OUTSIDE RECORDS SUMMARY | ~2019-05-19 | XMS | Encounter Summary ---
Demographics + + + | Address | [address] | | | [place] [address] | + + + | Home Phone | | + + + | Preferred Language | Unknown | + + + | Marital Status | Single | + + + | Sikhism Affiliation | 1041 | + + + | Race | Unknown | + + + | Ethnic Group | Unknown | + + + Author + + + | Author | [facility] | | | and [place] | + + + | Organization | [facility] | | | [...] Team Providers + +------+ + | Care Maple Sugar Maker Name | Role | Phone | + +------+ + | Yovani Santana MD | PCP | | + +------+ + Reason for Visit + + + | Reason | Comments | + + + | Follow-up | | + + + Encounter Details +--------+---------+ + + + | Date | Type | Department | Care Team | Description | +--------+---------+ + + + | 05/10/ | Office | [facility] | Gary Melendez, | Restrictive lung | | 2013 | Visit | PULMONARY [address] | MD [address] | disease (Primary | | | | [place], | [place], [place] | Dx); Hypoxemia; | | | | [place] [address] | [address] | Kyphosis deformity | | | | [phone] | | of spine | +--------+---------+ + + + Social History + +-------+ [...] + + + | Respiratory Rate | - | - | | + [...] + + + documented in this encounter Patient Instructions Patient Instructions Gary Melendez MD - 05/10/2014 2:25 PM PST Interstitial Lung Disease Interstitial lung disease sometimes called restrictive lung disease refers to a group o f lung problems. When you have interstitial lung disease, your lungs become inflamed and sca rred. You may find it harder to take deep breaths. Or you may have a dry cough and mild ches t discomfort. Interstitial lung disease is not asthma, although symptoms like shortness of breath may fee l similar. Inside Your Lungs When you breathe, air travels in and out of your lungs through branching airways (bronchiol es). Oxygen (O2) and carbon dioxide (CO2) are exchanged in the alveoli. Oxygen passes from t he alveoli to the blood vessels through the tissue called interstitium.The blood vessels t hen carry oxygen-rich blood to the rest of the body. Carbon dioxide moves back from the bloo d vessels to the alveoli and is then exhaled. How Lungs Become Damaged Interstitial lung disease develops in steps: First, the alveoli are injured and the lungs become inflamed. Then scarring of the lungs develops. The lungs may become stiff. With enough damage from scarring, oxygen can t easily move through interstitium. Causes of Interstitial Lung Disease In most cases, interstitial lung disease has no known cause. Some known causes include: Dust from asbestos or silica, gases, fumes, or poisons Chemicals and drugs (chemotherapy or medications) Radiation therapy Lung infections Connective tissue disease (such as scleroderma, systemic lupus, or rheumatoid arthritis) Treatment for Interstitial Lung Disease Interstitial lung disease can t be cured, but treatment can help you feel better. Treatme nt may include medication, breathing techniques, exercise, and stress management. In some [facility], a lung transplant is an option. Your healthcare team may include: A primary care provider,such as your family doctor. A security attendant,a specialist in lung problems. A pulmonary nurse specialistwho helps you understand and carry out your treatment. A pulmonary rehabilitation specialistwho helps you gain strength through exercise. A social workerwho helps with your daily needs, family life, and stress. [id number] [email or web address]. [address] [place] [address]. All righ ts reserved. This information is not intended as a substitute for professional medical care. Always follow your healthcare professional's instructions. documented in this encounter Progress Notes Gary Melendez MD - 05/10/2014 2:10 PM PSTFormatting of this note might be different f rom the original. Pulmonary Clinic Follow Up 05/10/2014 HPI Opal Petty is a 68 y.o. female patient of Yovani Santana here today for follow up of hypoxemia/dyspnea It has been 6 weeks since our last clinic appointment. At their last visit, we established a plan to perform fluoroscopy the diaphragms. Since the last visit she feels like their symptoms are stable. They have have not had any recent episodes of "bronchitis-like" symptoms. No new medical issues are reported. Currently Opal Petty is able to walk one block with O2 at their own pace on [place] before developing symptoms. They are not exercising regularly. They are not enro lled in cardiac/pulmonary rehabilitation. She does not cough chronically, and does not produce mucous. They have not had hemoptysis since our last appointment. She has been evaluated for nocturnal oxygen and does qualify for use. They are currently on 2 LPM at night. The patient wears supplemental oxygen at 4 L per min with exertion and 2 L per minute at rest. She does not had symptoms of heartburn or reflux. They have not had symptoms of nasal conge stion or post nasal drip. Nocturnal oximetry never occurred. Past Medical History Past Medical History Diagnosis Date Unspecified hereditary and idiopathic peripheral neuropathy (HCC) Renal insufficiency Hypoxemia (HCC) Hypothyroidism Hypercholesteremia Hypertension Raynaud's syndrome Compression fracture Approx. T-6 Primary biliary cirrhosis (HCC) KG (obstructive sleep apnea) No CPAP, oxygen at 2LPM Allergies: Allergies Allergen Reactions Codeine Nausea And Vomiting Medications: Current outpatient prescriptions:azaTHIOprine (IMURAN) 50 mg tablet, Take 50 mg by mouth [place]., Disp: , Rfl: ; cycloSPORINE (SANDIMMUNE) 25 mg capsule, Take 25 mg by mouth 3 times d aily., Disp: , Rfl: ; fluticasone (FLONASE) 50 mcg/nasal spray, 1 spray by Nasal route Linda y., Disp: , Rfl: ; furosemide (LASIX) 20 mg tablet, Take 20 mg by mouth Daily., Disp: , Rfl : gabapentin (NEURONTIN) 600 MG tablet, Take 600 mg by mouth 3 times daily., Disp: , Rfl: ; HYDROcodone-acetaminophen (NORCO) 5-325 mg per tablet, Take 1 tablet by mouth every 6 hours as needed., Disp: , Rfl: ; Levothyroxine Sodium 125 MCG CAPS, Take by mouth every morning (before breakfast)., Disp: , Rfl: ; methadone 10 mg tablet, Take 10 mg by mouth 2 times opal ly., Disp: , Rfl: metoprolol tartrate (LOPRESSOR) 50 mg tablet, Take 100 mg by mouth 2 times daily., Disp: , Rfl: ; pravastatin (PRAVACHOL) 10 mg tablet, Take 10 mg by mouth nightly., Disp: , Rfl: Immunizations: Immunization History Administered Date(s) Administered TRIVALENT INFLUENZA, PRESERATIVE FREE (PED/ADOL/ADULT) 02/12/2014 Review of Systems Constitutional: Denies fever, chills, sweats, fatigue or weakness. Sleep: Denies trouble sleeping, excessive snoring, and daytime sleepiness. Eyes: Denies vision change, and eye irritation. ENT: Denies earache, tinnitus, decreased hearing, nosebleeds, sore throat, and hoarseness. Resp: See HPI. CV: Denies neck/chest/jaw pain with exertion, palpitations, lightheadedness, syncope, orth opnea, PND, peripheral edema, and claudication. GI: Denies trouble swallowing, nausea, vomiting, abdominal pain, diarrhea, melena, and he matochezia. Neurologic: Denies frequent headaches, seizures, tremors, numbness or tingling in hands or feet or vertigo. Allergy Denies urticaria or allergic rashes. Objective BP 124/76 | Pulse 60 | Ht 1.6 m (5' 3") | Wt 97.796 kg (215 lb 9.6 oz) | BMI 38.20 kg/m2 | SpO2 96% Appearance: Alert, cooperative, no distress, appears stated age Head: Normocephalic, without obvious abnormality, atraumatic Eyes: PERRL, conjunctiva/corneas clear Nose: Nares normal, septum midline, mucosa normal, no drainage or sinus tenderness Throat: Lips, mucosa, and tongue normal; teeth/dentures normal Neck: Supple, symmetrical, no JVD Lungs: No accessory muscle use, breath sounds are reduced in the bases bilaterally, no wh eezes, No crackles or rhonchi. No dullness to percussion. Chest Wall: No tenderness or deformity Heart: Regular rate and rhythm, S1, S2 normal, no murmur, rub or gallop Extremities: Extremities normal, atraumatic, no cyanosis, clubbing. 1+ edema to the lower calf bilaterally Skin: Warm and dry Lymph nodes: Cervical and supraclavicular nodes normal Neurologic: Gait normal Data: Fluoroscopy: Of the diaphragms. Upright fluoroscopy showed an elevated right hemidiaphragm but normal bilateral diaphragmatic excursion. Assessment 1. Restrictive lung disease-no evidence of diaphragmatic paralysis/paresis. The patient d oes have significant kyphosis/ lordosis which is likely contributory. Obesity is another co ntributor. It seems relatively unlikely that the patient has underlying interstitial lung d isease. We discussed the possibility of performing a CT scan. The patient is not interested in suc h an evaluation at this time. After extensive discussion we decided on a followup appointment in 6 months time to determi ne the status of her symptoms. If the patient's symptoms progressed further evaluation will be coordinated. 2. Hypoxemia-improved symptoms with supplemental oxygen as described above. Plan 1. Pulmonary clinic followup appointment without other testing in 6 months time. 2. I've asked Ms. Petty to contact our office if worsening pulmonary symptoms were to deve lop. CC: Yovani Santana documented in this encounter Plan of Treatment Not on filedocumented as of this encounter Visit Diagnoses + + | Diagnosis | + + | Restrictive lung disease - Primary Other diseases of lung, not elsewhere classified | + + | Hypoxemia | + + | Kyphosis deformity of spine Kyphosis (acquired) (postural) | + + documented in this encounter
--- OUTSIDE RECORDS SUMMARY | ~2019-05-19 | XMS | Encounter Summary ---
Demographics + + + | Address | [address] | | | [place] [address] | + + + | Home Phone | | + + + | Preferred Language | Unknown | + + + | Marital Status | Unknown | + + + | Protestant Affiliation | Unknown | + + + [...] Team Providers + +------+ + | Care Control Valve Mechanic Name | Role | Phone | [...] + + | 01/28/ | Emergency | [facility] Emergency | | | | 2014 | | Department [address] | | | | | [address] | | | | | | [facility] | | | | | | [place], [place] | | | | | | [address] | | | | | | [phone] | | | +--------+ + + + [...]
--- OUTSIDE RECORDS SUMMARY | ~2019-05-19 | XMS | Encounter Summary ---
Demographics + + + | Address | [address] | | | [place] [address] | + + + | Home Phone | | + + + | Preferred Language | Unknown | + + + | Marital Status | Unknown | + + + | Faith Affiliation | Unknown | + + + | Race | Unknown | + + + | Ethnic Group | Unknown | + + + Author + + + | Author | [facility] | + + + | Organization | [facility] | + + + | Address | Unknown | + + + | Phone | Unavailable | + + + Care Team Providers + +------+ + | Care Casino Floor Walker Name | Role | Phone | + [...] | | | | | [address] [place], | [place], [place] | | | | | [place] [address] | [address] | | | | | [phone] | | | +--------+ + + + [...]
--- OUTSIDE RECORDS SUMMARY | ~2019-05-19 | XMS | Encounter Summary ---
Demographics + + + | Address | [address] | | | [place] [address] | + + + | Home Phone | | + + + | Preferred Language | Unknown | + + + | Marital Status | Single | + + + | Gnosticism Affiliation | 1041 | + + + | Race | Unknown | + + + | Ethnic Group | Unknown | + + + Author + + + | Author | [facility] | | | and [place] | + + + | Organization | [facility] | | [...] Team Providers + +------+ + | Care Glass Block Bender Name | Role | Phone | + [...] + + | 05/10/ | Office | [facility] | Gary Melendez, | 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 In some [facility], a lung transplant is an option. Your healthcare team may include: A primary care provider,such as your family doctor. A sr technical sales consultant,a specialist in lung problems. A pulmonary nurse specialistwho helps you understand and carry out your treatment. A pulmonary rehabilitation specialistwho helps you gain strength through exercise. A social workerwho helps with your daily needs, family life, and stress. [id number] [employer]. [address] [place] [address]. All righ ts reserved. This information is [...]
--- OUTSIDE RECORDS SUMMARY | ~2019-05-19 | XMS | Encounter Summary ---
Demographics + + + | Address | [address] | | | [place] [address] | + + + | Home Phone | | + + + | Preferred Language | Unknown | + + + | Marital Status | Single | + + + | Lutheran Affiliation | 1041 | + + + | Race | Unknown | + + + | Ethnic Group | Unknown | + + + Author + + + | Author | [facility] | | | and [place] | + + + | Organization | [facility] | | | [...] Team Providers + +------+ + | Care Continuous Improvement Lead Name | Role | Phone | + [...] | | | | | CONSULT | [place] | [place] [address] | | | | | | [place], [place] | Phone: | | | | | | [address] | [phone] | | | | | | Phone: | Fax: | | | | | | [phone] | [phone] | | | | | | Fax: | | | | | | | [phone] | | +--------+--------+ + + + + Encounter Details +--------+---------+ + + + | Date | Type | Department | Care Team | Description | +--------+---------+ + + + | 03/04/ | Office | [facility] [place] | Gary Melendez, | Earnest (Primary | | 2013 | Visit | PULMONARY [address] | MD [address] | Dx); Kyphosis | | | | [place], | [place], [place] | deformity of spine | | | | [place] [address] | [address] | | | | | [phone] | | | +--------+---------+ + + + [...] oxygen at 2 L per minute at [facility] while she slept. Over last [...] not have any smokeless tobacco history on ile. She reports that she drinks about 3.5 [...] spray, 1 spray by Nasal route Linda [place], Disp: , Rfl: ; furosemide (LASIX) 20 [...] and an apparent enlarged pulmonary artery. Yovani Santana's notes were reviewed in clinic today. [...] A copy of the patient's echocardiogram from [facility] will be reviewed. CC: Yovani Santana documented in this encounter Plan of Treatment Not on filedocumented as of this encounter Results PFT PULMONARY FUNCTION TESTING ORDERS Full PFT (Bowlegs w/BD, lung volumes, diffusion)?: Yes; Rest and [...] Melendez MD 03/27/2014 13:24 | | | [facility] | | + + + + [...] 03/26/14Electronically signed by: Gary Melendez MD 03/27/2014 13:24[facility] | | [facility] | | | |No prior pulmonary function tests available for comparison. | | | |Test performed: 03/26/14 | |Electronically signed by: Gary Melendez MD 03/27/2014 13:24 | |[facility] | + + documented in this encounter Visit Diagnoses + + | Diagnosis | + + | Hypoxemia - Primary | + + | Kyphosis deformity of spine Kyphosis (acquired) (postural) | + + documented in this encounter
--- OUTSIDE RECORDS SUMMARY | ~2019-05-19 | XMS | Encounter Summary ---
Demographics + + + | Address | [address] | | | [place] [address] | + + + | Home Phone | | + + + | Preferred Language | Unknown | + + + | Marital Status | Single | + + + | Rastafarian Affiliation | 1041 | + + + | Race | Unknown | + + + | Ethnic Group | Unknown | + + + Author + + + | Author | [facility] | | | and [place] | + + + | Organization | [facility] | | [...] Team Providers + +------+ + | Care Tower Erector Helper Name | Role | Phone | + +------+ + | Yovani Santana MD | PCP | | + +------+ + Encounter Details +--------+ + + + + | Date | Type | Department | Care Team | Description | +--------+ + + + + | 01/28/ | Hospital | [facility] | Jacob Smith, | | | 2014 - | Encounter | [facility] | MD Carmelo SANTAMARIA | | | | | CARE FLO[address] | [place] [address] | | | 02/03/ | | TIERA SANTAMARIA | [phone] | | | 2014 | | [place], [place] | | | | | | [address] | | | | | | [phone] | | | +--------+ + + + [...] Date of Service: 02/03/15 1029 Status: Signed Rig Welder: Jose Maria Espinal MD (Physician) Related Notes: Original Note by Jose Maria Espinal MD (Physician) filed at 02/04/15 1345 [facility]: Hospitalist Physician Discharge Summary Patient ID: Cole Ernst 1945 69 y.o. Admit date: 01/28/2015 Discharge date: 02/03/2015 Admitting Physician: Jacob Smith MD Discharge Physician: Jose Maria Esipnal MD Consultants: Treatment Team: Admitting Provider: Jacob [...] 2-4 lpm, Presented as a transfer from [facility] in [place] for fever of 101 and altered mental s tatus. She was discharged from [facility] on 01/09/15 for elevated troponin and acute [...] antibiotics. She was brought back in to [facility] for fever and confusion. UA and CXR reportedly negative there. SBP was 90s. She had formed stool there but en route here she did develop watery stool, tested C diff + here.".......per admitting MD/Dr. Smith . The patient was admitted to [facility] with a diagnosis of Clostridium difficile infection while she was being transferred from [facility] with fever and altered mental status. Th e patient has underlying immunosuppression secondary to a remote history of liver transplant on chronic immunosuppressive therapy with azathioprine and cyclosporin. Following her trans fletcher to [facility], she was started on oral vancomycin initially [...] her Clostri dium difficile infection. Overall Ms. Ernts did very well. She was declared medically stable for discharge to return to [facility] in [place] on Jan. ADDITIONAL ISSUES 1. Recurrent atelectasis. [...] days. I would urge managing physician at long-term facility where the patient resides in [facility] to check anothe r magnesium level every [...] Splenectomy Colonoscopy N/A 01/17/2015 Procedure: COLONOSCOPY; Surgeon: uJan Ramey MD; Location: [facility] ENDOSCOPY; Service: Gastroenterology; Laterality: N/A; Discharged Condition: [...] low lung volumes. Electronically arpita d by Chagn Gar MD on 01/28/2015 2:44 PM Discharge [...] Follow up: Ki De Jesus DO [address] [facility] [address] [place] [id number] Schedule an appointment as soon as possible [...] to Get Your Medications You need to pickler helper these prescriptions. We sent some of them to a specific pharmacy. Go t o these places to get your medications. [facility] - [place], [place] - [address] - lactobacillus granules [address] [place] [address] You may get the following medications from any pharmacy - HYDROcodone-acetaminophen 10-325 MG per tablet - vancomycin 25 mg/mL Bonnie Espinal MD 02/03/2015 10:29 AM Discharge took more [...] 02/03/151608 Date of Service: 02/03/151608 Status: Signed Rig Welder: Pedro Partida RN (Registered Nurse) 02/03/151602 Discharge Planning Evaluation Admitting Diagnosis Elevated temp, CKD, post liver transplant Readmission Yes-within 14 days Reason for readmission Fever, confusion, C.dif Last discharge disposition [facility] Needs met at last discharge Yes Picked up discharge Rx medications Yes Started prescribed DC meds Yes Understood discharge instructions Yes Assistance available Yes Concerns for meeting needs No Caregiver after Discharge Yes Mental Status Oriented Anticipated Disposition Facility Type [facility] Other (comment) ([place] in [place]) Disposition: Return to [facility] Transportation: Facility van to transport. All orders, [...] 02/03/15899 Date of Service: 02/02/151521 Status: Signed Rig Welder: Jose Maria Espinal MD (Physician) Related Notes: Original Note by Jose Maria Espinal MD (Physician) filed at 02/02/15 1950 [facility]: Hospitalist Progress Note Pt: Cole Ernst AGE/SEX: 69 y.o. female : 1945 ROOM: [facility] History of Present Illness: " The patient is a 69 y.o. female with significant past medical history of liver transplant int he 90s on cyclosporine and imuran, chronic pain on methadone, CKD st 3, chronic home O2 of unclear etiology from 2-4 lp, Presented as a transfer from [facility] in [place] for fever of 101 and altered mental s tatus. She was discharged from [facility] on 01/09/15 for elevated troponin and acute [...] antibiotics. She was brought back in to [facility] for fever and confusion. UA and CXR [...] sulfate. Case management [facility] [place] [facility] the patient in the next [...] contrast. Prior study for comparison: None FINDINGS: Scissors Grinder 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 deg enerative changes of [...] LA/Ao: 1.57 D-E Excursion: 2.11 cm E-F Hamilton: 0.09 m/s EPSS: 0.48 cm HR: 77.41 [...] TV A Billy: 0.66 m/s TV Dec Hamilton: 4.36 m/s2 TV Dec Time: 184.41 ms TV E Billy: 0.80 m/s TV E/A Rat io: 1.21 Screen Repairer Crusher: NEDRA Authenticated by: Gil Martines MD Report [...] Procedure: COLONOSCOPY; Surgeon: Juan Ramey MD; Location: [facility] ENDOSCOPY; Service: Gastroenterology; Laterality: N/A; PROBLEM LIST [...] by Jose Maria Espinal MD at 02/01/15 0595 Author: Jose Maria Espinal MD Service: Hospitalist Author Type: Physician Filed: 02/02/15 1524 Date of Service: 02/01/151716 Status: Signed Rig Welder: Jose Maria Espinal MD (Physician) Related Notes: Original Note by Jose Maria Espinal MD (Physician) filed at 02/02/15 1308 [facility]: Hospitalist Progress Note Pt: Cole Ernst AGE/SEX: 69 y.o. female : 1945 ROOM: [address] [place] [address] History of Present Illness: " The patient is a 69 y.o. female with significant past medical history of liver transplant int he 90s on cyclosporine and imuran, chronic pain on methadone, CKD st 3, chronic home O2 of unclear etiology from 2-4 lpm, Presented as a transfer from [facility] for fever of 101 and altered mental s tatus. She was discharged from [facility] on 01/09/15 for elevated troponin and acute [...] antibiotics. She was brought back in to [facility] for fever and confusion. UA and CXR [...] establishing readiness of the faci lity in [place] to accept the patient in the next [...] contrast. Prior study for comparison: None FINDINGS: Scissors Grinder 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 deg enerative changes of [...] LA/Ao: 1.57 D-E Excursion: 2.11 cm E-F Hamilton: 0.09 m/s EPSS: 0.48 cm HR: 77.41 [...] TV A Billy: 0.66 m/s TV Dec Hamilton: 4.36 m/s2 TV Dec Time: 184.41 ms TV E Billy: 0.80 m/s TV E/A Rat io: 1.21 Screen Repairer Crusher: NEDRA Authenticated by: Gil Martines MD Report [...] Procedure: COLONOSCOPY; Surgeon: Juan Ramey MD; Location: [facility] ENDOSCOPY; Service: Gastroenterology; Laterality: N/A; PROBLEM LIST [...] Currently with normal liver function tests. 3. Canag-hu-xijivut liver disease, stage III. Creatinine level has [...] 01/31/152124 Date of Service: 01/31/151513 Status: Signed Rig Welder: Jose Maria Espinal MD (Physician) Related Notes: Original Note by Jose Maria Espinal MD (Physician) filed at 01/31/15 1523 [facility]: Hospitalist Progress Note Pt: Cole Ernst AGE/SEX: 69 y.o. female : 1945 ROOM: [address] [place] [address] History of Present Illness: " The patient is a 69 y.o. female with significant past medical history of liver transplant int he 90s on cyclosporine and imuran, chronic pain on methadone, CKD st 3, chronic home O2 of unclear etiology from 2-4 lpm, Presented as a transfer from [facility] in [place] for fever of 101 and altered mental s tatus. She was discharged from [facility] on 01/09/15 for elevated troponin and acute [...] antibiotics. She was brought back in to [facility] for fever and confusion. UA and CXR [...] contrast. Prior study for comparison: None FINDINGS: Scissors Grinder 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 deg enerative changes of [...] LA/Ao: 1.57 D-E Excursion: 2.11 cm E-F Hamilton: 0.09 m/s EPSS: 0.48 cm HR: 77.41 [...] TV A Billy: 0.66 m/s TV Dec Hamilton: 4.36 m/s2 TV Dec Time: 184.41 ms TV E Billy: 0.80 m/s TV E/A Rat io: 1.21 Screen Repairer Crusher: NEDRA Authenticated by: Gil Martines MD Report [...] Procedure: COLONOSCOPY; Surgeon: Juan Ramey MD; Location: [facility] ENDOSCOPY; Service: Gastroenterology; Laterality: N/A; PROBLEM LIST [...] 1313 Date of Service: 01/31/151312 Status: Signed Rig Welder: Catina Moon () Attempted visit. Pt sitting in chair sleeping. No family present. Chaplain Catina Moon onver alessandro Transaction, Provider Unknown - 01/31/2015 11:35 AM PDT Therapy Progress Note by Mahi Yanes PTA at 01/31/15 1135 Author: Mahi Yanes PTA Service: (none) Author Type: Department Store General Manager Filed: 01/31/15 1410 Date of Service: 01/31/151134 Status: Signed Rig Welder: Mahi Yanes PTA (Department Store General Manager) 01/31/15 1135 PT Last Visit PT Received [...] PDT Case Management by Gregg Keene MS, CUSTOMER RETENTION REPRESENTATIVE at 01/31/15 1007 Author: Gregg Keene, MS, CUSTOMER RETENTION REPRESENTATIVE Service: (none) Author Type: Automotive Lube Technician Filed: 01/31/15 1546 Date of Service: 01/31/15 1007 Status: Addendum Rig Welder: Gregg Keene , CUSTOMER RETENTION REPRESENTATIVE (Automotive Lube Technician) Related Notes: Original Note by Gregg Yecenia MS, CUSTOMER RETENTION REPRESENTATIVE (Automotive Lube Technician) filed at 01/31/15 1007 Discharge planning - CM faxed updated clinical to Gi at [facility]. Discharge form s on front of chart for MD signature. CM notified Gi of anticipated d/c this weekend. onver alessandro Transaction, Provider Unknown - 01/30/2015 5:05 PM PDT Therapy Progress Note by Gail Vernon PT at 01/30/15 1705 Author: Gail Vernon PT Service: (none) Author Type: Physical Therapist Filed: 01/30/15 4816 Date of Service: 01/30/15 1705 Status: Signed Rig Welder: Gail Vernon PT (Physical Therapist) 01/30/15 170 [...] Service: Hospitalist Author Type: Physician Filed: 01/31/15 1409 Date of Service: 01/30/15 1414 Status: Signed Rig Welder: Jose Maria Espinal MD (Physician) Related Notes: Original Note by Jose Maria Espinal MD (Physician) filed at 01/30/15 2220 [facility]: Hospitalist Progress Note Pt: Cole [...] 2-4 lpm, Presented as a transfer from [facility] in [place] for fever of 101 and altered mental s tatus. She was discharged from [facility] on 01/09/15 for elevated troponin and acute [...] antibiotics. She was brought back in to [facility] for fever and confusion. UA and CXR [...] contrast. Prior study for comparison: None FINDINGS: Scissors Grinder 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 deg enerative changes of [...] LA/Ao: 1.57 D-E Excursion: 2.11 cm E-F Hamilton: 0.09 m/s EPSS: 0.48 cm HR: 77.41 [...] TV A Billy: 0.66 m/s TV Dec Hamilton: 4.36 m/s2 TV Dec Time: 184.41 ms TV E Billy: 0.80 m/s TV E/A Rat io: 1.21 Screen Repairer Crusher: NEDRA Authenticated by: Gil Martines MD Report [...] Colonoscopy N/A 01/17/2015 Procedure: COLONOSCOPY; Surgeon: Juan Ramye MD; Location: [facility] ENDOSCOPY; Service: Gastroenterology; Laterality: N/A; PROBLEM LIST [...] Patient's live r functions remain normal. 3. Psuby-ai-pilpnpk kidney disease stage III. Creatinine level has [...] by Jose Maria Espinal MD at 01/29/15 718 Author: Jose Maria Espinal MD Service: Hospitalist Author Type: Physician Filed: 01/30/15 0957 Date of Service: 01/29/151650 Status: Signed Rig Welder: Jose Maria Espinal MD (Physician) Related Notes: Original Note by Jose Maria Espinal MD (Physician) filed at 01/29/152024 [facility]: Hospitalist Progress Note Pt: Cole Ernst AGE/SEX: 69 y.o. female : 1945 ROOM: [address] [place] [address] History of Present Illness: " The patient is a 69 y.o. female with significant past medical history of liver transplant int he 90s on cyclosporine and imuran, chronic pain on methadone, CKD st 3, chronic home O2 of unclear etiology from 2-4 lpm, Presented as a transfer from [facility] in [place] for fever of 101 and altered mental s tatus. She was discharged from [facility] on 01/09/15 for elevated troponin and acute [...] antibiotics. She was brought back in to [facility] for fever and confusion. UA and CXR [...] contrast. Prior study for comparison: None FINDINGS: Scissors Grinder 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 deg enerative changes of [...] LA/Ao: 1.57 D-E Excursion: 2.11 cm E-F Hamilton: 0.09 m/s EPSS: 0.48 cm HR: 77.41 [...] TV A Billy: 0.66 m/s TV Dec Hamilton: 4.36 m/s2 TV Dec Time: 184.41 ms TV E Billy: 0.80 m/s TV E/A Rat io: 1.21 Screen Repairer Crusher: NEDRA Authenticated by: Gil Martines MD Report [...] Procedure: COLONOSCOPY; Surgeon: Juan Ramey MD; Location: [facility] END[facility]COPY; Service: Gastroenterology; Laterality: N/A; PROBLEM LIST [...] Date of Service: 01/29/15 1525 Status: Signed Rig Welder: Pedro Partida RN (Registered Nurse) 01/29/15 1521 Discharge Planning Evaluation Admitting Diagnosis Intestinal infection C.dif. Readmission Yes-within 14 days Reason for readmission Intestinal infection C.dif Last discharge disposition [facility] Needs met at last discharge Yes Picked up discharge Rx medications Not applicable Followed up with primary or specialty provider Yes Understood discharge instructions Yes Assistance available Yes Living Arrangements Alone Support Systems Friends/neighbors Type of Residence Private residence House type Apartment Independent with ADL's Yes Independent with Mobility Yes Caregiver after Discharge Yes Mental Status Oriented Anticipated Disposition Facility Type [facility] Other (comment) ([place] in [place]) Met with: patient and discussed discharge planning, Pt is a 69 y.o., female who was [place] [facility] [place] ago to [facility]. Her sister, Renée Tipton is emergency contact, . Patient's PCP is: KI DE JESUS Patient's insurance: Medicare Coverage concerns: Medication coverage/concerns: Community resources utilized / needed: Assistance in transportation: Identification of any specific education / training: Barriers to Discharge / Alternative housing needed: Anticipated DCP: Return to [facility] PEDRO PARTIDA RN onver alessandro Nicole Provider Unknown - 01/29/2015 8:55 AM PDT Therapy Progress Note by Barbara Edmond PT at 01/29/15 0855 Author: Barbara Edmond PT Service: (none) Author Type: Physical Therapist Filed: 01/29/1533 Date of Service: 01/29/15854 Status: Signed Rig Welder: Barbara Edmond PT (Physical Therapist) 01/29/15 08 [...] to SNF after current hospital stay. Just SEW OUT OPERATOR Júnior ADL's and Júnior mobility using 4ww for short room distances, had been using manual w/c in hallway at SNF. Reports a few falls at facility ov er last week, otherwise denies falls over last 6mos. Was getting therapies at facility. Prior Function Level of Idamay Modified independent with ADLs;Modified independent with functional [...] Barriers to Discharge Physical Deficits Impacting Functional Idamay;Self-care Deficit s Impacting Functional Idamay;Equipment Needs (see comment);Pain Recommendation Comments Needs return [...] Scooting Minimal assist Transfers Sit to/from Stand NICK Mobility Ambulation Assistance NICK Modalities Modalities Other [...] Barriers to Discharge Physical Deficits Impacting Functional Idamay;Self-care Deficit s Impacting Functional Idamay;Equipment Needs (see comment);Pain Recommendation Comments Needs return [...] 01/29/15831 Date of Service: 01/29/15830 Status: Signed Rig Welder: Malick Ramos RN (Registered Nurse) Infection Prevention Note: Patient stool is positive for C. Diff. Contact Enteric Precautions are required until furt her notice. Thank you. Malick Ramos RN, BA, Cnc Lathe Machine Operator onver alessandro Transaction, Provider Unknown - 01/28/2015 3:23 PM PDT Progress Notes by Jimena Duarte RPH at 01/28/151522 Author: Jimena Duarte RPH Service: (none) Author Type: Pharmacist Filed: 01/28/15 152 Date of Service: 01/28/151522 Status: Signed Rig Welder: Jimena Duarte RPH (Pharmacist) Zosyn Extended Infusion Initial Consult-Per Dr. Jacob Ernst 69 y.o. female CrCl cannot be calculated (Unknown ideal weight.). NEUTROPHILS ABS Date Value Ref Range Status 01/18/2015 3.26 1.90 - 7.40 K/uL Final Comment: Testing performed at [facility], [address] [place] [address] CREATININE Date Value Ref Range Status 01/19/2015 0.96 0.50 - 1.00 mg/dL Final Comment: Testing performed at [facility], [address] [place] [address] Zosyn extended Infusion loading and maintenance dose guidelines Loading Dose 4.5 g IV Over 30 minutes CrCl >20 ml/min 3.375 g IV Q 8 hours Over 4 hours CrCl 10-20 ml/min 3.375 g IV Q 12 hours Over 4 hours CrCl <10, HD, PD Follow [facility] Dosage Adjustments in Renal Dysfunction Protocol Plan [...] 01/28/151515 Date of Service: 01/28/151515 Status: Signed Rig Welder: Jimena Duarte RPH (Pharmacist) Renal Dosing Monitoring: [...] | | | | | [place] [address] | | | | + + + + + + | RED CELL | 2.72 (L)Comment: Testing | 3.70 - 5.10 | EXTERNAL | | | COUNT | performed at [facility], [address] | M/uL | LAB | | | | [address], | | | | | | [place] [address] | | | | + + + + + + | Hgb | 9.6 (L)Comment: Testing | 11.3 - 15.5 | EXTERNAL | | | | performed at [facility], [address] | g/dL | LAB | | | | [address], | | | | | | [place] [address] | | | | + + + + + + | Hematocrit, | 28.8 (L)Comment: Testing | 34.0 - 46.0 % | EXTERNAL | | | POC | performed at [facility], [address] | | LAB | | | | [address], | | | | | | [place] [address] | | | | + + + + + + | MCV | 106.0 (H)Comment: | 80.0 - 100.0 fl | EXTERNAL | | | | Testing performed at | | LAB | | | | [facility], [address] | | | | | | [place] | | | | | | [address] | | | | + + + + + + | MCH | 35.2 (H)Comment: Testing | 27.0 - 34.0 pg | EXTERNAL | | | | performed at [facility], [address] | | LAB | | | | [address], | | | | | | [place] [address] | | | | + + + + + + | MCHC | 33.2Comment: Testing | 32.0 - 35.5 | EXTERNAL | | | | performed at [facility], [address] | g/dL | LAB | | | | [address], | | | | | | [place] [address] | | | | + + + + + + | RDW-CV | 53.4 (H)Comment: Testing | 37 - 53 fl | EXTERNAL | | | | performed at [facility], [address] | | LAB | | | | [address], | | | | | | [place] [address] | | | | + + + + + + | Platelet | 216Comment: Testing | 150 - 400 K/uL | EXTERNAL | | | Count | performed at [facility], [address] | | LAB | | | Plasma | [address], | | | | | | [place] [address] | | | | + + + + + + | MPV | 10.5Comment: Testing | fl | EXTERNAL | | | | performed at [facility], [address] | | LAB | | | | [address], | | | | | | [place], [place] [address] | | | | + + + + + + | Differentia | MANUALComment: Testing | | EXTERNAL | | | l Type | performed at [facility], [address] | | LAB | | | | [address], | | | | | | [place], [place] [address] | | | | + + + + + + | Segmented | 35Comment: Testing | % | EXTERNAL | | | Neutrophils | performed at [facility], [address] | | LAB | | | Manual | [address], | | | | | | [place] [address] | | | | + + + + + + | % Bands | 1Comment: Testing | % | EXTERNAL | | | | performed at [facility], [address] | | LAB | | | | [address], | | | | | | [place] [address] | | | | + + + + + + | Lymphocytes | 44Comment: Testing | % | EXTERNAL | | | Manual | performed at [facility], [address] | | LAB | | | | [address], | | | | | | [place] [address] | | | | + + + + + + | Monocytes | 12Comment: Testing | % | EXTERNAL | | | Manual | performed at [facility], [address] | | LAB | | | | [address], | | | | | | [place] [address] | | | | + + + + + + | Eosinophils | 8Comment: Testing | % | EXTERNAL | | | Manual | performed at [facility], [address] | | LAB | | | | [address], | | | | | | [place] [address] | | | | + + + + + + | Absolute | 3.08Comment: Testing | 1.90 - 7.40 | EXTERNAL | | | Neutrophils | performed at [facility], [address] | K/uL | LAB | | | | [address], | | | | | | [place] [address] | | | | + + + + + + | Bands | 0.09Comment: Testing | 0.00 - 0.20 | EXTERNAL | | | Manual | performed at [facility], [address] | K/uL | LAB | | | | [address], | | | | | | [place] [address] | | | | + + + + + + | Absolute | 3.88Comment: Testing | 1.00 - 3.90 | EXTERNAL | | | Lymphocytes | performed at [facility], [address] | K/uL | LAB | | | | [address], | | | | | | [place] [address] | | | | + + + + + + | Absolute | 1.06 (H)Comment: Testing | 0.00 - 0.80 | EXTERNAL | | | Monocytes | performed at [facility], [address] | K/uL | LAB | | | | [address], | | | | | | [place] [address] | | | | + + + + + + | Absolute | 0.70 (H)Comment: Testing | 0.00 - 0.50 | EXTERNAL | | | Eosinophils | performed at [facility], [address] | K/uL | LAB | | | | [address], | | | | | | [place] [address] | | | | + + + + + + | RBC | NORMAL PLT MORPHComment: | | EXTERNAL | | | Morphology | NORMAL RBC MORPHTesting | | LAB | | | | performed at [facility], [address] | | | | | | [address], | | | | | | [place] [address] | | | | + + + [...] EXTERNAL | | | | performed at [facility], [address] | | LAB | | | | [address], | | | | | | [place] [address] | | | | + + + [...] EXTERNAL | | | | performed at [facility], [address] | | LAB | | | | [address], | | | | | | [place] [address] | | | | + + + [...] | | | | | [place] [address] | | | | + + + + + + | K | 4.0Comment: Testing | 3.5 - 4.9 | EXTERNAL | | | | performed at [facility], [address] | mmol/L | LAB | | | | [address] [place], | | | | | | [place] [address] | | | | + + + + + + | Cl | 102Comment: Testing | 99 - 109 mmol/L | EXTERNAL | | | | performed at [facility], [address] | | LAB | | | | [address], | | | | | | [place] [address] | | | | + + + + + + | CO2 | 33 (H)Comment: Testing | 23 - 32 mmol/L | EXTERNAL | | | | performed at [facility], [address] | | LAB | | | | [address], | | | | | | [place] [address] | | | | + + + + + + | Anion Gap | 5Comment: Testing | 5 - 20 mmol/L | EXTERNAL | | | | performed at [facility], [address] | | LAB | | | | [address], | | | | | | [place] [address] | | | | + + + + + + | Glucose, | 105 (H)Comment: Testing | 65 - 99 mg/dL | EXTERNAL | | | Fasting | performed at [facility], [address] | | LAB | | | | [address], | | | | | | [place] [address] | | | | + + + + + + | BUN | 9Comment: Testing | 8 - 25 mg/dL | EXTERNAL | | | | performed at [facility], [address] | | LAB | | | | [address], | | | | | | [place] [place] [address] | | | | + + + + + + | Creatinine | 0.82Comment: Testing | 0.50 - 1.00 | EXTERNAL | | | | performed at [facility], [address] | mg/dL | LAB | | | | [address], | | | | | | [place] [address] | | | | + + + + + + | BUN/Creatin | 11Comment: Testing | | EXTERNAL | | | ine Ratio | performed at [facility], [address] | | LAB | | | | [address], | | | | | | [place] [address] | | | | + + + + + + | Calcium | 8.5Comment: Testing | 8.5 - 10.5 | EXTERNAL | | | | performed at [facility], [address] | mg/dL | LAB | | | | [address], | | | | | | [place] [address] | | | | + + + + + + | Protein, | 6.3Comment: Testing | 6.3 - 8.2 g/dL | EXTERNAL | | | Total | performed at [facility], [address] | | LAB | | | | [address], | | | | | | [place] [address] | | | | + + + + + + | Albumin | 2.8 (L)Comment: Testing | 3.3 - 4.8 g/dL | EXTERNAL | | | | performed at [facility], [address] | | LAB | | | | [address], | | | | | | [place] [address] | | | | + + + + + + | Globulin | 3.5Comment: Testing | 1.3 - 4.9 g/dL | EXTERNAL | | | | performed at [facility], [address] | | LAB | | | | [address], | | | | | | [place] [address] | | | | + + + + + + | A/G Ratio | 0.8 (L)Comment: Testing | 1.0 - 2.4 | EXTERNAL | | | | performed at [facility], [address] | | LAB | | | | [address], | | | | | | [place] [address] | | | | + + + + + + | Bilirubin | 0.5Comment: Testing | 0.1 - 1.5 mg/dL | EXTERNAL | | | Total | performed at [facility], [address] | | LAB | | | | [address], | | | | | | [place] [address] | | | | + + + + + + | ALP, | 102Comment: Testing | 35 - 115 U/L | EXTERNAL | | | External | performed at [facility], [address] | | LAB | | | | [address], | | | | | | [place] [address] | | | | + + + + + + | AST | 53 (H)Comment: Testing | 10 - 45 U/L | EXTERNAL | | | | performed at [facility], [address] | | LAB | | | | [address], | | | | | | [place] [address] | | | | + + + + + + | ALT | 21Comment: Testing | 10 - 65 U/L | EXTERNAL | | | | performed at [facility], [address] | | LAB | | | | [address], | | | | | | [place] [address] | | | | + + + [...] | | | | | | at [facility], [address] | | | | | | [facility], | | | | | | [place] [address] | | | | + + + [...] EXTERNAL | | | | [place] [facility] [place] | mmol/L | LAB | | | | [address];[place], [place] | | | | | | [address] | | | | + + + [...] EXTERNAL | | | | performed at [facility] [place];[address] | | LAB | | | | [address];[place] | | | | | | [address] | | | | + + + [...] EXTERNAL | | | | performed at [facility], [address] | K/uL | LAB | | | | [address], | | | | | | [place] [address] | | | | + + + + + + | RED CELL | 2.78 (L)Comment: Testing | 3.70 - 5.10 | EXTERNAL | | | COUNT | performed at [facility], [address] | M/uL | LAB | | | | [address], | | | | | | [place] [address] | | | | + + + + + + | Hgb | 9.7 (L)Comment: Testing | 11.3 - 15.5 | EXTERNAL | | | | performed at [facility], [address] | g/dL | LAB | | | | [address], | | | | | | [place] [address] | | | | + + + + + + | Hematocrit, | 29.6 (L)Comment: Testing | 34.0 - 46.0 % | EXTERNAL | | | POC | performed at [facility], [address] | | LAB | | | | [address], | | | | | | [place] [address] | | | | + + + + + + | MCV | 106.3 (H)Comment: | 80.0 - 100.0 fl | EXTERNAL | | | | Testing performed at | | LAB | | | | [facility], [address] [facility] | | | | | | [place] | | | | | | [address] | | | | + + + + + + | MCH | 34.8 (H)Comment: Testing | 27.0 - 34.0 pg | EXTERNAL | | | | performed at [facility], [address] | | LAB | | | | [address], | | | | | | [place] [address] | | | | + + + + + + | MCHC | 32.8Comment: Testing | 32.0 - 35.5 | EXTERNAL | | | | performed at [facility], [address] | g/dL | LAB | | | | [address], | | | | | | [place] [address] | | | | + + + + + + | RDW-CV | 53.8 (H)Comment: Testing | 37 - 53 fl | EXTERNAL | | | | performed at [facility], [address] | | LAB | | | | [address], | | | | | | [place] [address] | | | | + + + + + + | Platelet | 181Comment: Testing | 150 - 400 K/uL | EXTERNAL | | | Count | performed at [facility], [address] | | LAB | | | Plasma | [address], | | | | | | [place] [address] | | | | + + + + + + | MPV | 11.3Comment: Testing | fl | EXTERNAL | | | | performed at [facility], [address] | | LAB | | | | [address], | | | | | | [place] [address] | | | | + + + + + + | Differentia | MANUALComment: Testing | | EXTERNAL | | | l Type | performed at [facility], [address] | | LAB | | | | [address], | | | | | | [place] [address] | | | | + + + + + + | Segmented | 45Comment: Testing | % | EXTERNAL | | | Neutrophils | performed at [facility], [address] | | LAB | | | Manual | [address], | | | | | | [place] [address] | | | | + + + + + + | % Bands | 1Comment: Testing | % | EXTERNAL | | | | performed at [facility], [address] | | LAB | | | | [address], | | | | | | [place] [address] | | | | + + + + + + | Lymphocytes | 35Comment: Testing | % | EXTERNAL | | | Manual | performed at [facility], [address] | | LAB | | | | [address], | | | | | | [place], [place] [address] | | | | + + + + + + | Monocytes | 11Comment: Testing | % | EXTERNAL | | | Manual | performed at [facility], [address] | | LAB | | | | [address], | | | | | | [place] [address] | | | | + + + + + + | Eosinophils | 8Comment: Testing | % | EXTERNAL | | | Manual | performed at [facility], [address] | | LAB | | | | [address], | | | | | | [place] [address] | | | | + + + + + + | Absolute | 3.85Comment: Testing | 1.90 - 7.40 | EXTERNAL | | | Neutrophils | performed at [facility], [address] | K/uL | LAB | | | | [address], | | | | | | [place] [address] | | | | + + + + + + | Bands | 0.09Comment: Testing | 0.00 - 0.20 | EXTERNAL | | | Manual | performed at [facility], [address] | K/uL | LAB | | | | [address], | | | | | | [place] [address] | | | | + + + + + + | Absolute | 3.01Comment: Testing | 1.00 - 3.90 | EXTERNAL | | | Lymphocytes | performed at [facility], [address] | K/uL | LAB | | | | [address], | | | | | | [place] [address] | | | | + + + + + + | Absolute | 0.95 (H)Comment: Testing | 0.00 - 0.80 | EXTERNAL | | | Monocytes | performed at [facility], [address] | K/uL | LAB | | | | [address], | | | | | | [place] [address] | | | | + + + + + + | Absolute | 0.69 (H)Comment: Testing | 0.00 - 0.50 | EXTERNAL | | | Eosinophils | performed at [facility], [address] | K/uL | LAB | | | | [address], | | | | | | [place] [address] | | | | + + + + + + | RBC | 2+Comment: MACRONORMAL | | EXTERNAL | | | Morphology | PLT MORPHTesting | | LAB | | | | performed at [facility], [address] | | | | | | [address], | | | | | | [place] [address] | | | | | | | [...] | | | | | [place] [address] | | | | + + + [...] EXTERNAL | | | | performed at [facility], [address] | | LAB | | | | [address], | | | | | | [place] [address] | | | | + + + [...] | | | | | [place] [address] | | | | + + + + + + | K | 3.2 (L)Comment: Testing | 3.5 - 4.9 | EXTERNAL | | | | performed at [facility], [address] | mmol/L | LAB | | | | [address], | | | | | | [place] [address] | | | | + + + + + + | Cl | 103Comment: Testing | 99 - 109 mmol/L | EXTERNAL | | | | performed at [facility], [address] | | LATA | | | | [address], | | | | | | [place] [address] | | | | + + + + + + | CO2 | 31Comment: Testing | 23 - 32 mmol/L | EXTERNAL | | | | performed at [facility], [address] | | LAB | | | | [address], | | | | | | [place] [address] | | | | + + + + + + | Anion Gap | 7Comment: Testing | 5 - 20 mmol/L | EXTERNAL | | | | performed at [facility], [address] | | LAB | | | | [address], | | | | | | [place] [address] | | | | + + + + + + | Glucose, | 104 (H)Comment: Testing | 65 - 99 mg/dL | EXTERNAL | | | Fasting | performed at [facility], [address] | | LAB | | | | [address], | | | | | | [place] [address] | | | | + + + + + + | BUN | 10Comment: Testing | 8 - 25 mg/dL | EXTERNAL | | | | performed at [facility], [address] | | LAB | | | | [address], | | | | | | [place] [address] | | | | + + + + + + | Creatinine | 0.83Comment: Testing | 0.50 - 1.00 | EXTERNAL | | | | performed at [facility], [address] | mg/dL | LAB | | | | [address], | | | | | | [place] [address] | | | | + + + + + + | BUN/Creatin | 12Comment: Testing | | EXTERNAL | | | ine Ratio | performed at [facility], [address] | | LAB | | | | [address], | | | | | | [place] [address] | | | | + + + + + + | Calcium | 8.2 (L)Comment: Testing | 8.5 - 10.5 | EXTERNAL | | | | performed at [facility], [address] | mg/dL | LAB | | | | [address], | | | | | | [place] [address] | | | | + + + + + + | Protein, | 6.2 (L)Comment: Testing | 6.3 - 8.2 g/dL | EXTERNAL | | | Total | performed at [facility], [address] | | LAB | | | | [address], | | | | | | [place] [address] | | | | + + + + + + | Albumin | 2.7 (L)Comment: Testing | 3.3 - 4.8 g/dL | EXTERNAL | | | | performed at [facility], [address] | | LAB | | | | [address], | | | | | | [place] [address] | | | | + + + + + + | Globulin | 3.5Comment: Testing | 1.3 - 4.9 g/dL | EXTERNAL | | | | performed at [facility], [address] | | LAB | | | | [address], | | | | | | [place] [address] | | | | + + + + + + | A/G Ratio | 0.8 (L)Comment: Testing | 1.0 - 2.4 | EXTERNAL | | | | performed at [facility], [address] | | LAB | | | | [address], | | | | | | [place] [address] | | | | + + + + + + | Bilirubin | 0.5Comment: Testing | 0.1 - 1.5 mg/dL | EXTERNAL | | | Total | performed at [facility], [address] | | LAB | | | | [address], | | | | | | [place] [address] | | | | + + + + + + | ALP, | 98Comment: Testing | 35 - 115 U/L | EXTERNAL | | | External | performed at [facility], [address] | | LAB | | | | [address], | | | | | | [place] [address] | | | | + + + + + + | AST | 35Comment: Testing | 10 - 45 U/L | EXTERNAL | | | | performed at [facility], [address] | | LAB | | | | [address], | | | | | | [place] [address] | | | | + + + + + + | ALT | 15Comment: Testing | 10 - 65 U/L | EXTERNAL | | | | performed at [facility], [address] | | LAB | | | | [address], | | | | | | [place] [address] | | | | + + + [...] [address], | | | | | | [place] [address] | | | | + + + [...] EXTERNAL | | | | performed at [facility], [address] | | LAB | | | | [address], | | | | | | [place] [address] | | | | + + + [...] | | | B-12 | performed at [facility], [address] | pg/mL | LAB | | | | [address], | | | | | | [place] [address] | | | | + + + [...] EXTERNAL | | | | performed at [facility], [address] | K/uL | LAB | | | | [address], | | | | | | [place] [address] | | | | + + + + + + | RED CELL | 2.72 (L)Comment: Testing | 3.70 - 5.10 | EXTERNAL | | | COUNT | performed at [facility], [address] | M/uL | LAB | | | | [address], | | | | | | [place] [address] | | | | + + + + + + | Hgb | 9.4 (L)Comment: Testing | 11.3 - 15.5 | EXTERNAL | | | | performed at [facility], [address] | g/dL | LAB | | | | [address], | | | | | | [place] [address] | | | | + + + + + + | Hematocrit, | 29.1 (L)Comment: Testing | 34.0 - 46.0 % | EXTERNAL | | | POC | performed at [facility], [address] | | LAB | | | | [address], | | | | | | [place] [address] | | | | + + + + + + | MCV | 107.3 (H)Comment: | 80.0 - 100.0 fl | EXTERNAL | | | | Testing performed at | | LAB | | | | [facility], [address] [facility] | | | | | | [place] | | | | | | [address] | | | | + + + + + + | MCH | 34.6 (H)Comment: Testing | 27.0 - 34.0 pg | EXTERNAL | | | | performed at [facility], [address] | | LAB | | | | [address], | | | | | | [place] [address] | | | | + + + + + + | MCHC | 32.2Comment: Testing | 32.0 - 35.5 | EXTERNAL | | | | performed at [facility], [address] | g/dL | LAB | | | | [address], | | | | | | [place] [address] | | | | + + + + + + | RDW-CV | 57.3 (H)Comment: Testing | 37 - 53 fl | EXTERNAL | | | | performed at [facility], [address] | | LAB | | | | [address], | | | | | | [place] [address] | | | | + + + + + + | Platelet | 174Comment: Testing | 150 - 400 K/uL | EXTERNAL | | | Count | performed at [facility], [address] | | LAB | | | Plasma | [address], | | | | | | [place] [address] | | | | + + + + + + | MPV | 10.9Comment: Testing | fl | EXTERNAL | | | | performed at [facility], [address] | | LAB | | | | [address], | | | | | | [place] [address] | | | | + + + + + + | Differentia | MANUALComment: Testing | | EXTERNAL | | | l Type | performed at [facility], [address] | | LAB | | | | [address], | | | | | | [place], [place] [address] | | | | + + + + + + | Segmented | 45Comment: Testing | % | EXTERNAL | | | Neutrophils | performed at [facility], [address] | | LAB | | | Manual | [address], | | | | | | [place], [place] [address] | | | | + + + + + + | % Bands | 1Comment: Testing | % | EXTERNAL | | | | performed at [facility], [address] | | LAB | | | | [address], | | | | | | [place], [place] [address] | | | | + + + + + + | Lymphocytes | 34Comment: Testing | % | EXTERNAL | | | Manual | performed at [facility], [address] | | LAB | | | | [address], | | | | | | [place] [address] | | | | + + + + + + | Monocytes | 11Comment: Testing | % | EXTERNAL | | | Manual | performed at [facility], [address] | | LAB | | | | [address], | | | | | | [place] [address] | | | | + + + + + + | Eosinophils | 9Comment: Testing | % | EXTERNAL | | | Manual | performed at [facility], [address] | | LAB | | | | [address], | | | | | | [place] [address] | | | | + + + + + + | Absolute | 3.77Comment: Testing | 1.90 - 7.40 | EXTERNAL | | | Neutrophils | performed at [facility], [address] | K/uL | LAB | | | | [address], | | | | | | [place] [address] | | | | + + + + + + | Bands | 0.08Comment: Testing | 0.00 - 0.20 | EXTERNAL | | | Manual | performed at [facility], [address] | K/uL | LAB | | | | [address], | | | | | | [place] [address] | | | | + + + + + + | Absolute | 2.84Comment: Testing | 1.00 - 3.90 | EXTERNAL | | | Lymphocytes | performed at [facility], [address] | K/uL | LAB | | | | [address], | | | | | | [place] [address] | | | | + + + + + + | Absolute | 0.92 (H)Comment: Testing | 0.00 - 0.80 | EXTERNAL | | | Monocytes | performed at [facility], [address] | K/uL | LAB | | | | [address], | | | | | | [place] [address] | | | | + + + + + + | Absolute | 0.75 (H)Comment: Testing | 0.00 - 0.50 | EXTERNAL | | | Eosinophils | performed at [facility], [address] | K/uL | LAB | | | | [address], | | | | | | [place] [address] | | | | + + + + + + | RBC | NORMAL PLT MORPHComment: | | EXTERNAL | | | Morphology | NORMAL RBC MORPHTesting | | LAB | | | | performed at [facility], [address] | | | | | | [address], | | | | | | [place] [address] | | | | + + + [...] EXTERNAL | | | | performed at [facility], [address] | | LAB | | | | [address], | | | | | | [place] [address] | | | | + + + [...] | | | | | [place] [address] | | | | + + + [...] | | | | | [place] [address] | | | | + + + + + + | K | 3.8Comment: Testing | 3.5 - 4.9 | EXTERNAL | | | | performed at [facility], [address] | mmol/L | LAB | | | | [address], | | | | | | [place] [address] | | | | + + + + + + | Cl | 111 (H)Comment: Testing | 99 - 109 mmol/L | EXTERNAL | | | | performed at [facility], [address] | | LAB | | | | [address], | | | | | | [place] [address] | | | | + + + + + + | CO2 | 25Comment: Testing | 23 - 32 mmol/L | EXTERNAL | | | | performed at [facility], [address] | | LAB | | | | [address], | | | | | | [place] [address] | | | | + + + + + + | Anion Gap | 5Comment: Testing | 5 - 20 mmol/L | EXTERNAL | | | | performed at [facility], [address] | | LAB | | | | [address], | | | | | | [place] [address] | | | | + + + + + + | Glucose, | 112 (H)Comment: Testing | 65 - 99 mg/dL | EXTERNAL | | | Fasting | performed at [facility], [address] | | LAB | | | | [address], | | | | | | [place] [address] | | | | + + + + + + | BUN | 13Comment: Testing | 8 - 25 mg/dL | EXTERNAL | | | | performed at [facility], [address] | | LAB | | | | [address], | | | | | | [place] [address] | | | | + + + + + + | Creatinine | 0.74Comment: Testing | 0.50 - 1.00 | EXTERNAL | | | | performed at [facility], [address] | mg/dL | LAB | | | | [address], | | | | | | [place] [address] | | | | + + + + + + | BUN/Creatin | 18Comment: Testing | | EXTERNAL | | | ine Ratio | performed at [facility], [address] | | LAB | | | | [address], | | | | | | [place] [address] | | | | + + + + + + | Calcium | 8.0 (L)Comment: Testing | 8.5 - 10.5 | EXTERNAL | | | | performed at [facility], [address] | mg/dL | LAB | | | | [address], | | | | | | [place] [address] | | | | + + + + + + | Protein, | 5.9 (L)Comment: Testing | 6.3 - 8.2 g/dL | EXTERNAL | | | Total | performed at [facility], [address] | | LAB | | | | [address], | | | | | | [place] [address] | | | | + + + + + + | Albumin | 2.6 (L)Comment: Testing | 3.3 - 4.8 g/dL | EXTERNAL | | | | performed at [facility], [address] | | LAB | | | | [address], | | | | | | [place] [address] | | | | + + + + + + | Globulin | 3.3Comment: Testing | 1.3 - 4.9 g/dL | EXTERNAL | | | | performed at [facility], [address] | | LAB | | | | [address], | | | | | | [place] [address] | | | | + + + + + + | A/G Ratio | 0.8 (L)Comment: Testing | 1.0 - 2.4 | EXTERNAL | | | | performed at [facility], [address] | | LAB | | | | [address], | | | | | | [place] [address] | | | | + + + + + + | Bilirubin | 0.4Comment: Testing | 0.1 - 1.5 mg/dL | EXTERNAL | | | Total | performed at [facility], [address] | | LAB | | | | [address], | | | | | | [place] [address] | | | | + + + + + + | ALP, | 93Comment: Testing | 35 - 115 U/L | EXTERNAL | | | External | performed at [facility], [address] | | LAB | | | | [address], | | | | | | [place] [address] | | | | + + + + + + | AST | 23Comment: Testing | 10 - 45 U/L | EXTERNAL | | | | performed at [facility], [address] | | LAB | | | | [address], | | | | | | [place] [address] | | | | + + + + + + | ALT | 14Comment: Testing | 10 - 65 U/L | EXTERNAL | | | | performed at [facility], [address] | | LAB | | | | [address], | | | | | | [place] [address] | | | | + + + [...] | | | | | [place] [address] | | | | + + + [...] EXTERNAL | | | | performed at [facility], [address] | K/uL | LAB | | | | [address], | | | | | | [place] [address] | | | | + + + + + + | RED CELL | 2.78 (L)Comment: Testing | 3.70 - 5.10 | EXTERNAL | | | COUNT | performed at [facility], [address] | M/uL | LAB | | | | [address], | | | | | | [place] [address] | | | | + + + + + + | Hgb | 9.7 (L)Comment: Testing | 11.3 - 15.5 | EXTERNAL | | | | performed at [facility], [address] | g/dL | LAB | | | | [address], | | | | | | [place] [address] | | | | + + + + + + | Hematocrit, | 29.9 (L)Comment: Testing | 34.0 - 46.0 % | EXTERNAL | | | POC | performed at [facility], [address] | | LAB | | | | [address], | | | | | | [place] [address] | | | | + + + + + + | MCV | 107.5 (H)Comment: | 80.0 - 100.0 fl | EXTERNAL | | | | Testing performed at | | LAB | | | | [facility], [address] [facility] | | | | | | [place] | | | | | | [address] | | | | + + + + + + | MCH | 34.9 (H)Comment: Testing | 27.0 - 34.0 pg | EXTERNAL | | | | performed at [facility], [address] | | LAB | | | | [address], | | | | | | [place] [address] | | | | + + + + + + | MCHC | 32.5Comment: Testing | 32.0 - 35.5 | EXTERNAL | | | | performed at [facility], [address] | g/dL | LAB | | | | [address], | | | | | | [place] [address] | | | | + + + + + + | RDW-CV | 57.3 (H)Comment: Testing | 37 - 53 fl | EXTERNAL | | | | performed at [facility], [address] | | LAB | | | | [address], | | | | | | [place] [address] | | | | + + + + + + | Platelet | 162Comment: Testing | 150 - 400 K/uL | EXTERNAL | | | Count | performed at [facility], [address] | | LAB | | | Plasma | [address], | | | | | | [place] [address] | | | | + + + + + + | MPV | 11.6Comment: Testing | fl | EXTERNAL | | | | performed at [facility], [address] | | LAB | | | | [address], | | | | | | [place], [place] [address] | | | | + + + + + + | Differentia | MANUALComment: Testing | | EXTERNAL | | | l Type | performed at [facility], [address] | | LAB | | | | [address], | | | | | | [place], [place] [address] | | | | + + + + + + | Segmented | 31Comment: Testing | % | EXTERNAL | | | Neutrophils | performed at [facility], [address] | | LAB | | | Manual | [address], | | | | | | [place], [place] [address] | | | | + + + + + + | Lymphocytes | 52Comment: Testing | % | EXTERNAL | | | Manual | performed at [facility], [address] | | LAB | | | | [address], | | | | | | [place] [address] | | | | + + + + + + | Monocytes | 11Comment: Testing | % | EXTERNAL | | | Manual | performed at [facility], [address] | | LAB | | | | [address], | | | | | | [place] [address] | | | | + + + + + + | Eosinophils | 6Comment: Testing | % | EXTERNAL | | | Manual | performed at [facility], [address] | | LAB | | | | [address], | | | | | | [place] [address] | | | | + + + + + + | Absolute | 3.19Comment: Testing | 1.90 - 7.40 | EXTERNAL | | | Neutrophils | performed at [facility], [address] | [address] | LAB | | | | [address], | | | | | | [place] [address] | | | | + + + + + + | Absolute | 5.36 (H)Comment: Testing | 1.00 - 3.90 | EXTERNAL | | | Lymphocytes | performed at [facility], [address] | LAB | | | | [address], | | | | | | [place] [address] | | | | + + + + + + | Absolute | 1.13 (H)Comment: Testing | 0.00 - 0.80 | EXTERNAL | | | Monocytes | performed at [facility], [address] | LAB | | | | [address], | | | | | | [place] [address] | | | | + + + + + + | Absolute | 0.62 (H)Comment: Testing | 0.00 - 0.50 | EXTERNAL | | | Eosinophils | performed at [facility], [address] | [address] | LAB | | | | [address], | | | | | | [place] [address] | | | | + + + + + + | RBC | 2+Comment: MACRONORMAL | | EXTERNAL | | | Morphology | [facility]T [facility]PH[facility] | | LAB | | | | performed at [facility], [address] | | | | | | [address], | | | | | | [place] [address] | | | | | | | [...] EXTERNAL | | | | performed at [facility], [address] | | LAB | | | | [address], | | | | | | [place] [address] | | | | + + + [...] EXTERNAL | | | | performed at [facility], [address] | | LAB | | | | [address], | | | | | | [place] [address] | | | | + + + [...] | LAB | | | | [address], | | | | | | [place] [address] | | | | + + + + + + | K | 4.2Comment: Testing | 3.5 - 4.9 | EXTERNAL | | | | performed at [facility], [address] | mmol/L | LAB | | | | [address], | | | | | | [place] [address] | | | | + + + + + + | Cl | 112 (H)Comment: Testing | 99 - 109 mmol/L | EXTERNAL | | | | performed at [facility], [address] | | LAB | | | | [address], | | | | | | [place] [address] | | | | + + + + + + | CO2 | 27Comment: Testing | 23 - 32 mmol/L | EXTERNAL | | | | performed at [facility], [address] | | LAB | | | | [address], | | | | | | [place] [address] | | | | + + + + + + | Anion Gap | 4 (L)Comment: Testing | 5 - 20 mmol/L | EXTERNAL | | | | performed at [facility], [address] | | LAB | | | | [address], | | | | | | [place] [address] | | | | + + + + + + | Glucose, | 94Comment: Testing | 65 - 99 mg/dL | EXTERNAL | | | Fasting | performed at [facility], [address] | | LAB | | | | [address], | | | | | | [place] [address] | | | | + + + + + + | BUN | 19Comment: Testing | 8 - 25 mg/dL | EXTERNAL | | | | performed at [facility], [address] | | LAB | | | | [address], | | | | | | [place] [address] | | | | + + + + + + | Creatinine | 1.01 (H)Comment: Testing | 0.50 - 1.00 | EXTERNAL | | | | performed at [facility], [address] | mg/dL | LAB | | | | [address], | | | | | | [place] [address] | | | | + + + + + + | BUN/Creatin | 19Comment: Testing | | EXTERNAL | | | ine Ratio | performed at [facility], [address] | | LAB | | | | [address], | | | | | | [place] [address] | | | | + + + + + + | Calcium | 8.1 (L)Comment: Testing | 8.5 - 10.5 | EXTERNAL | | | | performed at [facility], [address] | mg/dL | LAB | | | | [address], | | | | | | [place] [address] | | | | + + + + + + | Protein, | 5.9 (L)Comment: Testing | 6.3 - 8.2 g/dL | EXTERNAL | | | Total | performed at [facility], [address] | | LAB | | | | [address], | | | | | | [place] [address] | | | | + + + [...] | | | | | [place] [address] | | | | + + + + + + | A/G Ratio | 0.7 (L)Comment: Testing | 1.0 - 2.4 | EXTERNAL | | | | performed at [facility], [address] | | LAB | | | | [address], | | | | | | [place] [address] | | | | + + + + + + | Bilirubin | 0.3Comment: Testing | 0.1 - 1.5 mg/dL | EXTERNAL | | | Total | performed at [facility], [address] | | LAB | | | | [address], | | | | | | [place] [address] | | | | + + + + + + | ALP, | 98Comment: Testing | 35 - 115 U/L | EXTERNAL | | | External | performed at [facility], [address] | | LAB | | | | [address], | | | | | | [place] [address] | | | | + + + + + + | AST | 24Comment: Testing | 10 - 45 U/L | EXTERNAL | | | | performed at [facility], [address] | | LAB | | | | [address], | | | | | | [place] [address] | | | | + + + + + + | ALT | 14Comment: Testing | 10 - 65 U/L | EXTERNAL | | | | performed at [facility], [address] | | LAB | | | | [facility], | | | | | | [place] [address] | | | | + + + [...] W | | | | | | [facility], | | | | | | [place] [address] | | | | + + + [...] [place] | | | | | | [address] | | | | + + +---- + + + | RED CELL | 2.93 (L)Comment: Testing | 3.7 0 - 5.10 | EXTERNAL | | | COUNT | performed at [facility], [address] | M/u L | LAB | | | | [address], | | | | | | [place] [address] | | | | + + +---- + + + | Hgb | 10.2 (L)Comment: Testing | 11. 3 - 15.5 | EXTERNAL | | | | performed at [facility], [address] | g/d L | LAB | | | | [address], | | | | | | [place] [address] | | | | + + +---- + + + | Hematocrit, | 31.6 (L)Comment: Testing | 34. 0 - 46.0 % | EXTERNAL | | | POC | performed at [facility], [address] | | LAB | | | | [address], | | | | | | [place] [address] | | | | + + +---- + + + | MCV | 107.8 (H)Comment: | 80. 0 - 100.0 fl | EXTERNAL | | | | Testing performed at | | LAB | | | | [facility], [address] | | | | | | [place] | | | | | | [address] | | | | + + +---- + + + | MCH | 34.8 (H)Comment: Testing | 27. 0 - 34.0 pg | EXTERNAL | | | | performed at [facility], [address] | | LAB | | | | [address], | | | | | | [place] [address] | | | | + + +---- + + + | MCHC | 32.3Comment: Testing | 32. 0 - 35.5 | EXTERNAL | | | | performed at [facility], [address] | g/d L | LAB | | | | [address], | | | | | | [place] [address] | | | | + + +---- + + + | RDW-CV | 57.3 (H)Comment: Testing | 37 - 53 fl | EXTERNAL | | | | performed at [facility], [address] | | LAB | | | | [address], | | | | | | [place] [address] | | | | + + +---- + + + | Platelet | 146 (L)Comment: Testing | 150 - 400 K/uL | EXTERNAL | | | Count | performed at [facility], [address] | | LAB | | | Plasma | [address], | | | | | | [place] [address] | | | | + + +---- + + + | MPV | 11.2Comment: Testing | fl | EXTERNAL | | | | performed at [facility], [address] | | LAB | | | | [address], | | | | | | [place] [address] | | | | + + +---- + + + | Differentia | MANUALComment: Testing | | EXTERNAL | | | l Type | performed at [facility], [address] | | LAB | | | | [address], | | | | | | [place] [address] | | | | + + +---- + + + | Segmented | 58Comment: Testing | % | EXTERNAL | | | Neutrophils | performed at [facility], [address] | | LAB | | | Manual | [address], | | | | | | [place] [address] | | | | + + +---- + + + | % Bands | 20Comment: Testing | % | EXTERNAL | | | | performed at [facility], [address] | | LAB | | | | [address], | | | | | | [place] [address] | | | | + + +---- + + + | Lymphocytes | 13Comment: Testing | % | EXTERNAL | | | Manual | performed at [facility], [address] | | LAB | | | | [address], | | | | | | [place] [address] | | | | + + +---- + + + | Monocytes | 7Comment: Testing | % | EXTERNAL | | | Manual | performed at [facility], [address] | | LAB | | | | [address], | | | | | | [place] [address] | | | | + + +---- + + + | Eosinophils | 2Comment: Testing | % | EXTERNAL | | | Manual | performed at [facility], [address] | | LAB | | | | [address], | | | | | | [place] [address] | | | | + + +---- + + + | Absolute | 9.23 (H)Comment: Testing | 1.9 0 - 7.40 | EXTERNAL | | | Neutrophils | performed at [facility], [address] | K/u L | LAB | | | | [address], | | | | | | [place] [address] | | | | + + +---- + + + | Bands | 3.18 (H)Comment: Testing | 0.0 0 - 0.20 | EXTERNAL | | | Manual | performed at [facility], [address] | K/u L | LAB | | | | [address], | | | | | | [place] [address] | | | | + + +---- + + + | Absolute | 2.07Comment: Testing | 1.0 0 - 3.90 | EXTERNAL | | | Lymphocytes | performed at [facility], [address] | K/u L | LAB | | | | [address], | | | | | | [place] [address] | | | | + + +---- + + + | Absolute | 1.11 (H)Comment: Testing | 0.0 0 - 0.80 | EXTERNAL | | | Monocytes | performed at [facility], [address] | K/u L | LAB | | | | [address], | | | | | | [place] [address] | | | | + + +---- + + + | Absolute | 0.32Comment: Testing | 0.0 0 - 0.50 | EXTERNAL | | | Eosinophils | performed at [facility], [address] | K/u L | LAB | | | | [address], | | | | | | [place] [address] | | | | + + +---- + + + | RBC | 2+Comment: | | EXTERNAL | | | Morphology | MACRO1+ANISONORMAL PLT | | LAB | | | | MORPHTesting performed | | | | | | at [facility], [address] | | | | | | [employer], | | | | | | [place] [address] | | | | | |Testing performed at [facility], [address] [place] [address] | | | | | | | [...] EXTERNAL | | | | performed at [facility], [address] | | LAB | | | | [address], | | | | | | [place] [address] | | | | + + + [...] | | | | | [place] [address] | | | | + + + [...] | | | | | [place] [address] | | | | + + + + + + | K | 3.9Comment: Testing | 3.5 - 4.9 | EXTERNAL | | | | performed at [facility], [address] | mmol/L | LAB | | | | [address], | | | | | | [place] [address] | | | | + + + + + + | Cl | 109Comment: Testing | 99 - 109 mmol/L | EXTERNAL | | | | performed at [facility], [address] | | LAB | | | | [address], | | | | | | [place] [address] | | | | + + + + + + | CO2 | 24Comment: Testing | 23 - 32 mmol/L | EXTERNAL | | | | performed at [facility], [address] | | LAB | | | | [address], | | | | | | [place] [address] | | | | + + + + + + | Anion Gap | 8Comment: Testing | 5 - 20 mmol/L | EXTERNAL | | | | performed at [facility], [address] | | LAB | | | | [address], | | | | | | [place] [address] | | | | + + + + + + | Glucose, | 98Comment: Testing | 65 - 99 mg/dL | EXTERNAL | | | Fasting | performed at [facility], [address] | | LAB | | | | [address], | | | | | | [place] [address] | | | | + + + + + + | BUN | 25Comment: Testing | 8 - 25 mg/dL | EXTERNAL | | | | performed at [facility], [address] | | LAB | | | | [address], | | | | | | [place] [address] | | | | + + + + + + | Creatinine | 1.39 (H)Comment: Testing | 0.50 - 1.00 | EXTERNAL | | | | performed at [facility], [address] | mg/dL | LAB | | | | [address], | | | | | | [place] [address] | | | | + + + + + + | BUN/Creatin | 18Comment: Testing | | EXTERNAL | | | ine Ratio | performed at [facility], [address] | | LAB | | | | [address], | | | | | | [place] [address] | | | | + + + + + + | Calcium | 8.2 (L)Comment: Testing | 8.5 - 10.5 | EXTERNAL | | | | performed at [facility], [address] | mg/dL | LAB | | | | [address], | | | | | | [place] [address] | | | | + + + + + + | Protein, | 6.1 (L)Comment: Testing | 6.3 - 8.2 g/dL | EXTERNAL | | | Total | performed at [facility], [address] | | LAB | | | | [address], | | | | | | [place] [address] | | | | + + + + + + | Albumin | 2.4 (L)Comment: Testing | 3.3 - 4.8 g/dL | EXTERNAL | | | | performed at [facility], [address] | | LAB | | | | [address], | | | | | | [place] [address] | | | | + + + + + + | Globulin | 3.7Comment: Testing | 1.3 - 4.9 g/dL | EXTERNAL | | | | performed at [facility], [address] | | LAB | | | | [address], | | | | | | [place] [address] | | | | + + + + + + | A/G Ratio | 0.6 (L)Comment: Testing | 1.0 - 2.4 | EXTERNAL | | | | performed at [facility], [address] | | LAB | | | | [address], | | | | | | [place] [address] | | | | + + + + + + | Bilirubin | 0.4Comment: Testing | 0.1 - 1.5 mg/dL | EXTERNAL | | | Total | performed at [facility], [address] | | LAB | | | | [address], | | | | | | [place] [address] | | | | + + + [...] | | | | | [place] [address] | | | | + + + + + + | ALT | 14Comment: Testing | 10 - 65 U/L | EXTERNAL | | | | performed at [facility], [address] | | LAB | | | | [address], | | | | | | [place] [address] | | | | + + + [...] | | | | | | at [facility], [address] | | | | | | [employer] [address], | | | | | | [place] [address] | | | | + + + [...] | | | | [facility], [address] [facility] | | | | | | [place] | | | | | | [address] | | | | + + + + + + | RED CELL | 3.12 (L)Comment: Testing | 3.70 - 5.10 | EXTERNAL | | | COUNT | performed at [facility], [address] | M/uL | LAB | | | | [address] [place], | | | | | | [place] [address] | | | | + + + + + + | Hgb | 10.8 (L)Comment: Testing | 11.3 - 15.5 | EXTERNAL | | | | performed at [facility], [address] | g/dL | LAB | | | | [address], | | | | | | [place] [address] | | | | + + + + + + | Hematocrit, | 33.7 (L)Comment: Testing | 34.0 - 46.0 % | EXTERNAL | | | POC | performed at [facility], [address] | | LAB | | | | [address], | | | | | | [place] [address] | | | | + + + + + + | MCV | 108.0 (H)Comment: | 80.0 - 100.0 fl | EXTERNAL | | | | Testing performed at | | LAB | | | | [facility], [address] | | | | | | [place] | | | | | | [address] | | | | + + + + + + | MCH | 34.7 (H)Comment: Testing | 27.0 - 34.0 pg | EXTERNAL | | | | performed at [facility], [address] | | LAB | | | | [address] [place], | | | | | | [place] [address] | | | | + + + + + + | MCHC | 32.1Comment: Testing | 32.0 - 35.5 | EXTERNAL | | | | performed at [facility], [address] | g/dL | LAB | | | | [address], | | | | | | [place] [address] | | | | + + + + + + | RDW-CV | 55.6 (H)Comment: Testing | 37 - 53 fl | EXTERNAL | | | | performed at [facility], [address] | | LAB | | | | [address], | | | | | | [place] [address] | | | | + + + + + + | Platelet | 153Comment: Testing | 150 - 400 K/uL | EXTERNAL | | | Count | performed at [facility], [address] | | LAB | | | Plasma | [address], | | | | | | [place] [address] | | | | + + + + + + | MPV | 11.2Comment: Testing | fl | EXTERNAL | | | | performed at [facility], [address] | | LAB | | | | [address], | | | | | | [place], [place] [address] | | | | + + + + + + | Differentia | MANUALComment: Testing | | EXTERNAL | | | l Type | performed at [facility], [address] | | LAB | | | | [address], | | | | | | [place], [place] [address] | | | | + + + + + + | Segmented | 64Comment: Testing | % | EXTERNAL | | | Neutrophils | performed at [facility], [address] | | LAB | | | Manual | [address], | | | | | | [place] [address] | | | | + + + + + + | % Bands | 15Comment: Testing | % | EXTERNAL | | | | performed at [facility], [address] | | LAB | | | | [address], | | | | | | [place] [address] | | | | + + + + + + | % | 2Comment: Testing | % | EXTERNAL | | | Metamyelocy | performed at [facility], [address] | | LAB | | | [address]ma | [address], | | | | | | [place] [address] | | | | + + + + + + | Lymphocytes | 12Comment: Testing | % | EXTERNAL | | | Manual | performed at [facility], [address] | | LAB | | | | [address], | | | | | | [place] [address] | | | | + + + + + + | Monocytes | 6Comment: Testing | % | EXTERNAL | | | Manual | performed at [facility], [address] | | LAB | | | | [address], | | | | | | [place] [address] | | | | + + + + + + | Eosinophils | 1Comment: Testing | % | EXTERNAL | | | Manual | performed at [facility], [address] | | LAB | | | | [address], | | | | | | [place] [address] | | | | + + + + + + | Absolute | 11.48 (H)Comment: | 1.90 - 7.40 | EXTERNAL | | | Neutrophils | Testing performed at | K/uL | LAB | | | | [facility] [address] [facility] | | | | | | [place] | | | | | | [address] | | | | + + + + + + | Bands | 2.69 (H)Comment: Testing | 0.00 - 0.20 | EXTERNAL | | | Manual | performed at [facility], [address] | K/uL | LAB | | | | [address], | | | | | | [place] [address] | | | | + + + + + + | Absolute | 0.36 (H)Comment: Testing | K/uL | EXTERNAL | | | Metamyelocy | performed at [facility], [address] | | LAB | | | irma | [address], | | | | | | [place] [address] | | | | + + + + + + | Absolute | 2.15Comment: Testing | 1.00 - 3.90 | EXTERNAL | | | Lymphocytes | performed at [facility], [address] | K/uL | LAB | | | | [address], | | | | | | [place] [address] | | | | + + + + + + | Absolute | 1.08 (H)Comment: Testing | 0.00 - 0.80 | EXTERNAL | | | Monocytes | performed at [facility], [address] | K/uL | LAB | | | | [address], | | | | | | [place] [address] | | | | + + + + + + | Absolute | 0.18Comment: Testing | 0.00 - 0.50 | EXTERNAL | | | Eosinophils | performed at [facility], [address] | K/uL | LAB | | | | [address], | | | | | | [place] [address] | | | | + + + + + + | RBC | 2+Comment: MACRONORMAL | | EXTERNAL | | | Morphology | PLT MORPHTesting | | LAB | | | | performed at [facility], [address] | | | | | | [address], | | | | | | [place] [address] | | | | | | | [...] EXTERNAL | | | | performed at [facility] [place] | mmol/L | LAB | | | | [address];[place] | | | | | | [address] | | | | + + + + + + | K | 3.8Comment: Testing | 3.5 - 4.9 | EXTERNAL | | | | performed at [facility] [place];[address] | mmol/L | LAB | | | | [address];[place] | | | | | | [address] | | | | + + + + + + | Cl | 107Comment: Testing | 99 - 109 mmol/L | EXTERNAL | | | | performed at [facility] [place];[address] | | LAB | | | | [address];[place] | | | | | | [address] | | | | + + + + + + | CO2 | 26Comment: Testing | 23 - 32 mmol/L | EXTERNAL | | | | performed at [facility] [place];[address] | | LAB | | | | [address];[place] | | | | | | [address] | | | | + + + + + + | Anion Gap | 12Comment: Testing | 5 - 20 mmol/L | EXTERNAL | | | | performed at [facility] [place];[address] | | LAB | | | | [address];[place] | | | | | | [address] | | | | + + + + + + | Glucose, | 127 (H)Comment: Testing | 65 - 99 mg/dL | EXTERNAL | | | Fasting | performed at [facility] [place];[address] | | LAB | | | | [address];[place] | | | | | | [address] | | | | + + + + + + | BUN | 28 (H)Comment: Testing | 8 - 25 mg/dL | EXTERNAL | | | | performed at [facility] [place];[address] | | LAB | | | | [address];[place] | | | | | | [address] | | | | + + + + + + | Creatinine | 1.8 (H)Comment: Testing | 0.50 - 1.00 | EXTERNAL | | | | performed at [facility] [place];[address] | mg/dL | LAB | | | | [address];[place] | | | | | | [address] | | | | + + + + + + | BUN/Creatin | 16Comment: Testing | | EXTERNAL | | | ine Ratio | performed at [facility] [place];[address] | | LAB | | | | [address];[place] | | | | | | [address] | | | | + + + + + + | Calcium | 7.6 (L)Comment: Testing | 8.5 - 10.5 | EXTERNAL | | | | performed at [facility] [place] | mg/dL | LAB | | | | [address];[place] | | | | | | [address] | | | | + + + [...] | | | | | | at [facility] [place];[address] | [address];[place] [address] | | | | + + + [...] | | | | | | at [facility] [place] [place];[address] [place] [address] | | | | | | [facility];[place] [address] | | | | + + + [...] LAB | | | | [facility], [address] [facility] | | | | | | [place] | | | | | | [address] | | | | + + +---- + + + | RED CELL | 3.07 (L)Comment: Testing | 3.7 0 - 5.10 | EXTERNAL | | | COUNT | performed at [facility], [address] | M/u L | LAB | | | | [address] [place], | | | | | | [place] [address] | | | | + + +---- + + + | Hgb | 10.8 (L)Comment: Testing | 11. 3 - 15.5 | EXTERNAL | | | | performed at [facility], [address] | g/d L | LAB | | | | [address] [place], | | | | | | [place] [address] | | | | + + +---- + + + | Hematocrit, | 32.7 (L)Comment: Testing | 34. 0 - 46.0 % | EXTERNAL | | | POC | performed at [facility], [address] | | LAB | | | | [address] [place], | | | | | | [place] [address] | | | | + + +---- + + + | MCV | 106.4 (H)Comment: | 80. 0 - 100.0 fl | EXTERNAL | | | | Testing performed at | | LAB | | | | [facility], [address] | | | | | | [place] | | | | | | [address] | | | | + + +---- + + + | MCH | 35.1 (H)Comment: Testing | 27. 0 - 34.0 pg | EXTERNAL | | | | performed at [facility], [address] | | LAB | | | | [address] [place], | | | | | | [place] [address] | | | | + + +---- + + + | MCHC | 33.0Comment: Testing | 32. 0 - 35.5 | EXTERNAL | | | | performed at [facility], [address] | g/d L | LAB | | | | [address], | | | | | | [place] [address] | | | | + + +---- + + + | RDW-CV | 56.0 (H)Comment: Testing | 37 - 53 fl | EXTERNAL | | | | performed at [facility], [address] | | LAB | | | | [address], | | | | | | [place] [address] | | | | + + +---- + + + | Platelet | 151Comment: Testing | 150 - 400 K/uL | EXTERNAL | | | Count | performed at [facility], [address] | | LAB | | | Plasma | [address], | | | | | | [place] [address] | | | | + + +---- + + + | MPV | 11.7Comment: Testing | fl | EXTERNAL | | | | performed at [facility], [address] | | LAB | | | | [address], | | | | | | [place] [address] | | | | + + +---- + + + | Differentia | MANUALComment: Testing | | EXTERNAL | | | l Type | performed at [facility], [address] | | LAB | | | | [address] [place], | | | | | | [place] [address] | | | | + + +---- + + + | Segmented | 57Comment: Testing | % | EXTERNAL | | | Neutrophils | performed at [facility], [address] | | LAB | | | Manual | [address] [place], | | | | | | [place] [address] | | | | + + +---- + + + | % Bands | 26Comment: Testing | % | EXTERNAL | | | | performed at [facility], [address] | | LAB | | | | [address] [place], | | | | | | [place] [address] | | | | + + +---- + + + | % | 4Comment: Testing | % | EXTERNAL | | | Metamyelocy | performed at [facility], [address] | | LAB | | | irma | [address] [place], | | | | | | [place] [address] | | | | + + +---- + + + | Lymphocytes | 9Comment: Testing | % | EXTERNAL | | | Manual | performed at [facility], [address] | | LAB | | | | [address] [place], | | | | | | [place] [address] | | | | + + +---- + + + | Monocytes | 4Comment: Testing | % | EXTERNAL | | | Manual | performed at [facility], [address] | | LAB | | | | [address] [place], | | | | | | [place] [address] | | | | + + +---- + + + | Absolute | 10.53 (H)Comment: | 1.9 0 - 7.40 | EXTERNAL | | | Neutrophils | Testing performed at | K/u L | LAB | | | | [facility], [address] | | | | | | [place] | | | | | | [address] | | | | + + +---- + + + | Bands | 4.80 (H)Comment: Testing | 0.0 0 - 0.20 | EXTERNAL | | | Manual | performed at [facility], [address] | K/u L | LAB | | | | [address] [place], | | | | | | [place] [address] | | | | + + +---- + + + | Absolute | 0.74 (H)Comment: Testing | K/u L | EXTERNAL | | | Metamyelocy | performed at [facility], [address] | | LAB | | | irma | [address] [place], | | | | | | [place] [address] | | | | + + +---- + + + | Absolute | 1.66Comment: Testing | 1.0 0 - 3.90 | EXTERNAL | | | Lymphocytes | performed at [facility], [address] | K/u L | LAB | | | | [address], | | | | | | [place] [address] | | | | + + +---- + + + | Absolute | 0.74Comment: Testing | 0.0 0 - 0.80 | EXTERNAL | | | Monocytes | performed at [facility], [address] | K/u L | LAB | | | | [address], | | | | | | [place] [address] | | | | + + +---- + + + | RBC | 2+Comment: | | EXTERNAL | | | Morphology | MACRO1+ANISONORMAL PLT | | LAB | | | | MORPHTesting performed | | | | | | at [facility], [address] | | | | | | [facility], | | | | | | [place] [address] | | | | | |Testing performed at [facility], [address] [facility], [place] [address] | | | | | | | [...] EXTERNAL | | | | performed at [facility] [place];[address] | | LAB | | | | [address];[place], [place] | | | | | | [address] | | | | + + + [...] | | | | | performed at [facility] [place];[address] | | | | [...] EXTERNAL | | | | performed at [facility] [place];[address] | mmol/L | LAB | | | | [address];[place], [place] | | | | | | [address] | | | | + + + [...] EXTERNAL | | | | performed at [facility] [place] | mmol/L | LAB | | | | T[address] A[address];[place] | | | | | | [address] | | | | + + + + + + | K | 4.4Comment: SPECIMEN | 3.5 - 4.9 | EXTERNAL | | | | SLIGHTLY | mmol/L | LAB | | | | HEMOLYZEDTesting | | | | | | performed at [facility] [place] | | | | | | Tiera Santamaria;[place] | | | | | | [address] | | | | + + + + + + | Cl | 106Comment: Testing | 99 - 109 mmol/L | EXTERNAL | | | | performed at [facility] [place] | | LAB | | | | Tannerlanny Santamaria;[place] | | | | | | [address] | | | | + + + + + + | CO2 | 24Comment: Testing | 23 - 32 mmol/L | EXTERNAL | | | | performed at [facility] [place] | | LAB | | | | [address];[place] | | | | | | [address] | | | | + + + + + + | Anion Gap | 12Comment: Testing | 5 - 20 mmol/L | EXTERNAL | | | | performed at [facility] [place] | | LAB | | | | [address];[place] | | | | | | [address] | | | | + + + + + + | Glucose, | 103 (H)Comment: Testing | 65 - 99 mg/dL | EXTERNAL | | | Fasting | performed at [facility] [place] | | LAB | | | | [address];[place] | | | | | | [address] | | | | + + + + + + | BUN | 22Comment: Testing | 8 - 25 mg/dL | EXTERNAL | | | | performed at [facility] [place] | | LAB | | | | [address];[place] | | | | | | [address] | | | | + + + + + + | Creatinine | 1.9 (H)Comment: Testing | 0.50 - 1.00 | EXTERNAL | | | | performed at [facility] [place] | mg/dL | LAB | | | | [address];[place] | | | | | | [address] | | | | + + + + + + | BUN/Creatin | 12Comment: Testing | | EXTERNAL | | | ine Ratio | performed at [facility] [place] | | LAB | | | | [address];[place] | | | | | | [address] | | | | + + + + + + | Calcium | 7.4 (L)Comment: Testing | 8.5 - 10.5 | EXTERNAL | | | | performed at [facility] [place] | mg/dL | LAB | | | | [address];[place] | | | | | | [address] | | | | + + + + + + | Protein, | 6.5Comment: Testing | 6.3 - 8.2 g/dL | EXTERNAL | | | Total | performed at [facility] [place] | | LAB | | | | [address];[place] | | | | | | [address] | | | | + + + + + + | Albumin | 2.2 (L)Comment: Testing | 3.3 - 4.8 g/dL | EXTERNAL | | | | performed at [facility] [place] | | LAB | | | | [address];[place] | | | | | | [address] | | | | + + + + + + | Globulin | 4.4Comment: Testing | 1.3 - 4.9 g/dL | EXTERNAL | | | | performed at [facility] [place] | | LAB | | | | [address];[place] | | | | | | [address] | | | | + + + + + + | A/G Ratio | 0.5 (L)Comment: Testing | 1.0 - 2.4 | EXTERNAL | | | | performed at [facility] [place] | | LAB | | | | [address];[place] | | | | | | [address] | | | | + + + + + + | Bilirubin | 0.5Comment: Testing | 0.1 - 1.5 mg/dL | EXTERNAL | | | Total | performed at [facility] [place] | | LAB | | | | [address];[place] | | | | | | [address] | | | | + + + + + + | ALP, | 148 (H)Comment: Testing | 35 - 115 U/L | EXTERNAL | | | External | performed at [facility] [place] | | LAB | | | | [address];[place] | | | | | | [address] | | | | + + + + + + | AST | 41Comment: SPECIMEN | 10 - 45 U/L | EXTERNAL | | | | SLIGHTLY | | LAB | | | | HEMOLYZEDTesting | | | | | | performed at [facility] [place] [place] | | | | | | [address];[place] | | | | | | [address] | | | | + + + + + + | ALT | 23Comment: Testing | 10 - 65 U/L | EXTERNAL | | | | performed at [facility] [place];[address] | | LAB | | | | [address];[place] | | | | | | [address] | | | | + + + [...] | | | | | | at [facility] [place];[address] | | | | | | [place] [address] | | | | + + + [...] WORKUP | | | Testing performed at [facility], [address], [place] | | | [address] | | + + + + +---------+ [...] EXTERNAL | | | | performed at [facility], [address] | | LAB | | | | [address], | | | | | | [place] [address] | | | | + + + + + + | Clarity | CLOUDYComment: Testing | | EXTERNAL | | | | performed at [facility], [address] | | LAB | | | | [address], | | | | | | [place] [address] | | | | + + + + + + | Specific | 1.015Comment: Testing | 1.002 - 1.030 | EXTERNAL | | | Elba | performed at [facility], [address] | | LAB | | | | [address], | | | | | | [place] [address] | | | | + + + + + + | Leukocyte | SMALL (A)Comment: | | EXTERNAL | | | Esterase, | Testing performed at | | LAB | | | Urine | [facility], [address] | | | | | | [place] | | | | | | [address] | | | | + + + + + + | Nitrite, | NEGATIVEComment: Testing | | EXTERNAL | | | Urine | performed at [facility], [address] | | LAB | | | | [address], | | | | | | [place] [address] | | | | + + + + + + | Urobilinoge | 0.2Comment: Testing | mg/dL | EXTERNAL | | | n, Urine | performed at [facility], [address] | | LAB | | | | [address], | | | | | | [place] [address] | | | | + + + + + + | Protein, | 100 (A)Comment: Testing | mg/dL | EXTERNAL | | | Urine | performed at [facility], [address] | | LAB | | | | [address], | | | | | | [place] [address] | | | | + + + + + + | pH, Urine | 6.5Comment: Testing | 5.0 - 8.0 | EXTERNAL | | | | performed at [facility], [address] | | LAB | | | | [address], | | | | | | [place] [address] | | | | + + + + + + | Blood, | MODERATE (A)Comment: | | EXTERNAL | | | Urine | Testing performed at | | LAB | | | | [facility], [address] | | | | | | [place] | | | | | | [address] | | | | + + + + + + | Ketones | NEGATIVEComment: Testing | mg/dL | EXTERNAL | | | | performed at [facility], [address] | | LAB | | | | [address], | | | | | | [place] [address] | | | | + + + + + + | Bilirubin, | NEGATIVEComment: Testing | | EXTERNAL | | | Urine | performed at [facility], [address] | | LAB | | | | [address], | | | | | | [place] [address] | | | | + + + + + + | Glucose, | NEGATIVEComment: Testing | mg/dL | EXTERNAL | | | Urine | performed at [facility], [address] | | LAB | | | | [address], | | | | | | [place] [address] | | | | + + + [...] | | | | | [place] [address] | | | | + + + + + + | RBC, UA | 1-5Comment: Testing | 0 - 5 /hpf | EXTERNAL | | | | performed at [facility], [address] | | LAB | | | | [address], | | | | | | [place] [address] | | | | + + + + + + | Epithelial | 0-2Comment: Testing | /lpf | EXTERNAL | | | Cells | performed at [facility], [address] | | LAB | | | | [address], | | | | | | [place] [address] | | | | + + + + + + | Bacteria, | TRACE (A)Comment: | | EXTERNAL | | | UA | Testing performed at | | LAB | | | | [facility], [address] | | | | | | [place] | | | | | | [address] | | | | + + + + + + | Urinalysis | CULTURE TO | | EXTERNAL | | | Comments | FOLLOWComment: Testing | | LAB | | | | performed at [facility], [address] | | | | | | [address], | | | | | | [place] [address] | | | | + + + [...] EXTERNAL | | | | performed at [facility] [place];[place] | mg/dL | LAB | | | | [address];[place] | | | | | | [address] | | | | + + + [...] LAB | | C.diffAbnormal Testing performed at [facility];[address] [place] [address] | | | [address] 027 NAP1 BI 027 NAP1 BI | | | PRESUMPTIVE NEGATIVE Detection of 027 NAP1 BI strains of C. difficile | | | is presumptive and for epidemiological purposes and not intended to | | | guide or monitor treatment for C. difficile infections. Testing | | | performed at [facility] [place] [place];[address] [place] [address];[place] [address] | | + + + + +---------+ [...] EXTERNAL | | | | performed at [facility];888 | mmol/L | LAB | | | | [address];[place], [place] | | | | | | [address] | | | | + + + [...] | | | | | | at [facility];[address] | | | | | | [facility];[place] [address] | | | | + + + [...] EXTERNAL | | | | performed at [facility];[address] | | LAB | | | | [address];[place], [place] | | | | | | [address] | | | | + + + [...] | | | | | | ACUTE [place] Testing | | | | | | performed at [facility];[address] | | | | | | [facility];[place], [place] | | | | | | [address] | | | | + + + [...] K/uL | LAB | | | | [facility];[address] | | | | | | [place] [address] | | | | + + + + + + | RED CELL | 3.66 (L)Comment: Testing | 3.70 - 5.10 | EXTERNAL | | | COUNT | performed at [facility] [place] [place];[address] | M/uL | LAB | | | | [address];[place] | | | | | | [address] | | | | + + + + + + | Hgb | 12.6Comment: Testing | 11.3 - 15.5 | EXTERNAL | | | | performed at [facility];[address] | g/dL | LAB | | | | [address];[place] | | | | | | [address] | | | | + + + + + + | Hematocrit, | 38.9Comment: Testing | 34.0 - 46.0 % | EXTERNAL | | | POC | performed at [facility];[address] | | LAB | | | | [address];[place] | | | | | | [address] | | | | + + + + + + | MCV | 106.3 (H)Comment: | 80.0 - 100.0 fl | EXTERNAL | | | | Testing performed at | | LAB | | | | [facility];[address];[place] [address] | | | | + + + + + + | MCH | 34.3 (H)Comment: Testing | 27.0 - 34.0 pg | EXTERNAL | | | | performed at [facility] [place];[address] | | LAB | | | | [address];[place] | | | | | | [address] | | | | + + + + + + | MCHC | 32.3Comment: Testing | 32.0 - 35.5 | EXTERNAL | | | | performed at [facility];[address] | g/dL | LAB | | | | [address];[place] | | | | | | [address] | | | | + + + + + + | RDW-CV | 54.7 (H)Comment: Testing | 37 - 53 fl | EXTERNAL | | | | performed at [facility] [place] [place];[address] | | LAB | | | | [address];[place] | | | | | | [address] | | | | + + + + + + | Platelet | 167Comment: Testing | 150 - 400 K/uL | EXTERNAL | | | Count | performed at [facility];[address] | | LAB | | | Plasma | [address];[place] | | | | | | [address] | | | | + + + + + + | MPV | 10.6Comment: Testing | fl | EXTERNAL | | | | performed at [facility] [place];[address] | | LAB | | | | [address];[place] | | | | | | [address] | | | | + + + + + + | Differentia | MANUALComment: Testing | | EXTERNAL | | | l Type | performed at [facility];[address] | | LAB | | | | [address];[place] | | | | | | [address] | | | | + + + + + + | Segmented | 54Comment: Testing | % | EXTERNAL | | | Neutrophils | performed at [facility] [place];[address] | | LAB | | | Manual | [address];[place] | | | | | | [address] | | | | + + + + + + | % Bands | 18Comment: Testing | % | EXTERNAL | | | | performed at [facility] [place];[address] | | LAB | | | | [address];[place] | | | | | | [address] | | | | + + + + + + | Lymphocytes | 16Comment: Testing | % | EXTERNAL | | | Manual | performed at [facility];[address] | | LAB | | | | [address];[place] | | | | | | [address] | | | | + + + + + + | Monocytes | 12Comment: Testing | % | EXTERNAL | | | Manual | performed at [facility];[address] | | LAB | | | | [address];[place] | | | | | | [address] | | | | + + + + + + | Absolute | 10.69 (H)Comment: | 1.90 - 7.40 | EXTERNAL | | | Neutrophils | Testing performed at | K/uL | LAB | | | | [facility];[address];[place] [address] | | | | + + + + + + | Bands | 3.56 (H)Comment: Testing | 0.00 - 0.20 | EXTERNAL | | | Manual | performed at [facility];[address] | K/uL | LAB | | | | [address];[place] | | | | | | [address] | | | | + + + + + + | Absolute | 3.16Comment: Testing | 1.00 - 3.90 | EXTERNAL | | | Lymphocytes | performed at [facility];[address] | K/uL | LAB | | | | [address];[place] | | | | | | [address] | | | | + + + + + + | Absolute | 2.37 (H)Comment: Testing | 0.00 - 0.80 | EXTERNAL | | | Monocytes | performed at [facility];[address] | K/uL | LAB | | | | [address];[place] | | | | | | [address] | | | | + + + + + + | Platelet | ADEQUATEComment: Testing | | EXTERNAL | | | Estimate | performed at [facility];[address] | | LAB | | | | [address];[place] | | | | | | [address] | | | | + + + + + + | RBC | NORMAL PLT MORPHComment: | | EXTERNAL | | | Morphology | 1+ANISOTesting | | LAB | | | | performed at [facility];[address] | | | | | | [address];[place] | | | | | | [address] | | | | | | | [...] EXTERNAL | | | | performed at [facility];[address] | uIU/mL | LAB | | | | [address];[place], [place] | | | | | | [address] | | | | + + + [...] EXTERNAL | | | | performed at [facility];[address] | | LAB | | | | [address];[place], [place] | | | | | | [address] | | | | + + + [...] | | LAB | | | | [facility];[address] | | | | | | [address];[place] [address] | | | | + + + [...] EXTERNAL | | | | performed at [facility];[address] | | LAB | | | | [address];[place], [place] | | | | | | [address] | | | | + + + [...] EXTERNAL | | | | performed at [facility];[address] | | LAB | | | | [address];[place] | | | | | | [address] | | | | + + + [...] EXTERNAL | | | | performed at [facility] [place] [place];[address] | mmol/L | LAB | | | | [address];[place] | | | | | | [address] | | | | + + + + + + | K | 3.4 (L)Comment: Testing | 3.5 - 4.9 | EXTERNAL | | | | performed at [facility] [place] [place];[address] | mmol/L | LAB | | | | [address];[place] | | | | | | [address] | | | | + + + + + + | Cl | 101Comment: Testing | 99 - 109 mmol/L | EXTERNAL | | | | performed at [facility] [place];[address] | | LAB | | | | [address];[place] | | | | | | [address] | | | | + + + + + + | CO2 | 27Comment: Testing | 23 - 32 mmol/L | EXTERNAL | | | | performed at [facility] [place] [place];[address] | | LAB | | | | [address];[place] | | | | | | [address] | | | | + + + + + + | Anion Gap | 12Comment: Testing | 5 - 20 mmol/L | EXTERNAL | | | | performed at [facility];[address] | | LAB | | | | [address];[place] | | | | | | [address] | | | | + + + + + + | Glucose, | 106 (H)Comment: Testing | 65 - 99 mg/dL | EXTERNAL | | | Fasting | performed at [facility];[address] | | LAB | | | | [address];[place] | | | | | | [address] | | | | + + + + + + | BUN | 18Comment: Testing | 8 - 25 mg/dL | EXTERNAL | | | | performed at [facility] [place];[address] | | LAB | | | | [address];[place] | | | | | | [address] | | | | + + + + + + | Creatinine | 1.3 (H)Comment: Testing | 0.50 - 1.00 | EXTERNAL | | | | performed at [facility];[address] | mg/dL | LAB | | | | [address];[place] | | | | | | [address] | | | | + + + + + + | BUN/Creatin | 14Comment: Testing | | EXTERNAL | | | ine Ratio | performed at [facility];[address] | | LAB | | | | [address];[place] | | | | | | [address] | | | | + + + + + + | Calcium | 7.3 (L)Comment: Testing | 8.5 - 10.5 | EXTERNAL | | | | performed at [facility];888 | mg/dL | LAB | | | | [address];[place] | | | | | | [address] | | | | + + + + + + | Protein, | 7.9Comment: Testing | 6.3 - 8.2 g/dL | EXTERNAL | | | Total | performed at [facility];[address] | | LAB | | | | [address];[place] | | | | | | [address] | | | | + + + + + + | Albumin | 2.5 (L)Comment: Testing | 3.3 - 4.8 g/dL | EXTERNAL | | | | performed at [facility];[address] | | LAB | | | | [address];[place] | | | | | | [address] | | | | + + + + + + | Globulin | 5.4 (H)Comment: Testing | 1.3 - 4.9 g/dL | EXTERNAL | | | | performed at [facility] [place];[address] | | LAB | | | | [address];[place] | | | | | | [address] | | | | + + + + + + | A/G Ratio | 0.5 (L)Comment: Testing | 1.0 - 2.4 | EXTERNAL | | | | performed at [facility];[address] | | LAB | | | | [address];[place] | | | | | | [address] | | | | + + + + + + | Bilirubin | 0.6Comment: Testing | 0.1 - 1.5 mg/dL | EXTERNAL | | | Total | performed at [facility];[address] | | LAB | | | | [address];[place] | | | | | | [address] | | | | + + + + + + | ALP, | 188 (H)Comment: Testing | 35 - 115 U/L | EXTERNAL | | | External | performed at [facility];[address] | | LAB | | | | [address];[place] | | | | | | [address] | | | | + + + + + + | AST | 51 (H)Comment: Testing | 10 - 45 U/L | EXTERNAL | | | | performed at [facility];[address] | | LAB | | | | [address];[place] | | | | | | [address] | | | | + + + + + + | ALT | 30Comment: Testing | 10 - 65 U/L | EXTERNAL | | | | performed at [facility];[address] | | LAB | | | | [address];[place] | | | | | | [address] | | | | + + + [...] | | | | | | at [facility];[address];[place] [address] | | | | + + + [...] Conversion - 01/05/2019 4:32 AM PDT COLE [id number] yearsXR | | CHEST 1 VIEW01/28/2015 2:40 [...]
--- OUTSIDE RECORDS SUMMARY | ~2019-05-19 | XMS | Encounter Summary ---
Demographics + + + | Address | [address] | | | [place] [address] | + + + | Home Phone | | + + + | Preferred Language | Unknown | + + + | Marital Status | Single | + + + | Druze Affiliation | [id number] | + + + | Race | Unknown | + + + | Ethnic Group | Unknown | + + + Author + + + | Author | [facility] | | | and [place] | + + + | Organization | [facility] | | | [...] Team Providers + +------+ + | Care Inspector Of Weights And Measures Name | Role | Phone | + [...] + + | 03/26/ | Office | [facility] | Gary Melendez, | Hypoxemia (Primary | | 2014 | Visit | PULMONARY [address] | MD [address] | Dx); Kyphosis | | | | [place], | [place], [place] | deformity of spine; | | | | [place] [address] | [address] | Restrictive lung | | | | [phone] | | disease | +--------+---------+ + + [...] + | MISCELLANEOUS LAB | | | [phone] | + +---------+ + + | MISCELANIOUS LAB | | | [phone] | + +---------+ + + documented in this encounter Visit Diagnoses + + | Diagnosis | + + | Hypoxemia - Primary | + + | 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
--- OUTSIDE RECORDS SUMMARY | ~2019-05-19 | XMS | Encounter Summary ---
Demographics + + + | Address | [address] | | | [place] [address] | + + + | Home Phone [...] + + + | Author | [facility] | | | and [place] | + + + | Organization | [facility] | | | [...] Team Providers + +------+ + | Care Fender Mechanic Apprentice Name | Role | Phone | + +------+ + | Rick Osorio DO | PCP | | + +------+ + Encounter Details +--------+ + + + + | Date | Type | Department | Care Team | Description | +--------+ + + + + | 12/05/ | Orders Only | [facility] | Emil Oliva MD | | | 2013 | | [place]HOLOG[facility] [place] | [address] | | | | | [address] | [address] [place], [place] | | | | | [address] [place], [place] | [address] | | | | | [address] | | | | | | [phone] | | | +--------+ + + + [...]
--- OUTSIDE RECORDS SUMMARY | ~2019-05-19 | XMS | Encounter Summary ---
Demographics + + + | Address | [address] | | | [place] [address] | + + + | Home Phone | | + + + | Preferred Language | Unknown | + + + | Marital Status | Unknown | + + + | Taoism Affiliation | Unknown | + + + [...] Providers + +------+ + | Care Panel Monitor Name | Role | Phone | + +------+ + PCP | Unavailable | + +------+ + Reason for Visit +--------+ + | Reason | Comments | +--------+ + | Sepsis | | +--------+ + Encounter Details +--------+ + + + + | Date | Type | Department | Care Team | Description | +--------+ + + + + | 01/28/ | Emergency | [facility] Emergency | | | | 2014 | | Department [address] | | | | | | [address] | | | | | | [facility] | | | | | | [place], [place] | | | | | | [address] | | | | | | [phone] | | | +--------+ + + + [...]
--- OUTSIDE RECORDS SUMMARY | ~2019-05-19 | XMS | Encounter Summary ---
Demographics + + + | Address | [address] | | | [place] [address] | + + + | Home Phone | | + + + | Preferred Language | Unknown | + + + | Marital Status | Single | + + + | Scientology Affiliation | [id number] | + + + [...] Team Providers + +------+ + | Care Upstream Biomanufacturing Technician Name | Role | Phone | + +------+ + | Yovani Santana MD | PCP | | + +------+ + Encounter Details +--------+ + + + + | Date | Type | Department | Care Team | Description | +--------+ + + + + | 01/14/ | Hospital | [facility] | Jennifer Hartman MD | Near syncope; | | 2015 - | Encounter | [facility] | [address] | Elevated troponin; | | | | CARE FLOOR [address] | [place] [address] | Non-STEMI (non-ST | | 01/19/ | | [address] | [phone] | elevated myocardial | | 2015 | | [place], [place] | | infarction) ([facility]); | | | | [address] | | CKD (chronic kidney | | | | [phone] | | disease), | | | | | | unspecified stage; | | | | | | Leukocytosis; ZULAY | | | | | | (acute kidney | | | | | | injury) ([facility]); Liver | | | | | | replaced by | | | | | | transplant ([facility]) | +--------+ + + + + Social [...] Date of Service: 01/19/15 0753 Status: Signed Forklift Operator: Emma Hardy MD (Physician) Related Notes: Original Note by Emma Hardy MD (Physician) filed at 01/19/15 0800 [facility] Service: Hospitalist Physician Discharge Summary Patient [...] history of chronic pain, on chronic methadone, fur joiner denny kidney disease, stage III, presented with generalized weakness, acute renal failure, and elevate troponin. The patient was taken off methadone about 3 weeks prior to admission. Pre vious creatinine was 1.38 and the patient was presented at [facility] in [place] , was found to have elevated troponin of 0.55 and noted to have creatinine of 2.4 and leukoc ytosis and was transferred for wzz-YM-pganibfne MD. HOSPITAL COURSE The patient was admitted with tiy-VH-trlktcsek MD. Cardiology consult was obtained. She was [...] lipid-lowerin g therapy. The patient also has gxrfm-dv-melmyyh kidney disease, stage III. Acute renal fail [...] to have severe protein calorie malnutrition and pole shaver was consulted. Her blood pressures remain stable. [...] 1.5* 1.8 1.4* Invalid input(s): ABG Disposition: intermediate facility Follow up: Ki De Jesus DO [address] [facility] [address] [place] [address] Schedule an appointment as soon as possible for a visit in 4 days Juan Ramey MD [address] [facility] [address] [facility] [address] Schedule an appointment as soon [...] are the prescriptions that you need to picker packer. You may get the following medications from [...] summary. This entry has been created using [employer] Speech Recognition software and SpeakWorks. The entry has been reviewed and there [...] Date of Service: 01/19/15 1300 Status: Signed Forklift Operator: Shaista Lin RN (Registered Nurse) Pt discharged via wheel chair on 2 L of oxygen. To [facility] in [place]. Pt alert and o rientedX4. onver alessandro Transaction, Provider Unknown - 01/19/2015 8:20 AM PDT Case Management by PHUONG Roman at 01/19/15819 Author: PHUONG Roman Service: (none) Author Type: Banquet Prep Cook Filed: 01/19/15819 Date of Service: 01/19/15819 Status: Signed Forklift Operator: PHUONG Roman (Banquet Prep Cook) Disposition: [facility] Transportation: facility van All orders, [...] 0625 Date of Service: 01/19/15412 Status: Signed Forklift Operator: Yady Singh RN (Registered Nurse) Patient resting quietly all night. Medicated once for all over general pain. No further com plaints. VSS. onver alessandro Transaction, Provider Unknown - 01/18/2015 3:21 PM PDT Case Management by PHUONG Roman at 01/18/15 1521 Author: PHUONG Roman Service: (none) Author Type: Banquet Prep Cook Filed: 01/18/15 1521 Date of Service: 01/18/15 1521 Status: Signed Forklift Operator: PHUONG Roman (Banquet Prep Cook) spoke w/ Will at [place] who reports they can accept and transport pt tomorrow AM. PHUONG Roman osangela Kirk MD - 01/18/2015 3:10 PM PDT Progress Notes by Rosangela Steinberg MD at 01/18/15 1510 Author: Rosangela Steinberg MD Service: Infectious Disease Author Type: Physician Filed: 01/18/15 8824 Date of Service: 01/18/15 1510 Status: Signed Forklift Operator: Rosangela Steinberg MD (Physician) [facility] Service: Infectious Disease Progress Note Hospital [...] vomiting and diarrhea. Had initially presented to [facility] in [place] with similar complaints. Was foun d to have an elevated troponin. She was mainly admitted as a non-STEMI. Found to have a leuk ocytosis. Since patient is immunocompromised, she was started empirically on IV ceftriaxone. Chest x-ray showed no infiltrate. Patient denies any recent fevers or chills. She went to [facility] mainly becau se of syncope. Prior [...] extraluminal fluid collection abdomen pelvis without contrast [[id number]] Impression 1. Hypoinflated chest, but no evident infiltrate chest 1 view [[id number]] Impression 1. Indication for study and thus [...] 1445 Date of Service: 01/18/15748 Status: Signed Forklift Operator: Emma Hardy MD (Physician) [facility] Service: Hospitalist Progress Note Hospital Day: [...] schrader 8. Deconditioning Continue physical therapy and senior care facility placement versus home PT 9. Chronic [...] AM This entry has been created using Scalix Speech Recognition software and SpeakWorks. The entry has been reviewed and there may still exist sound alike word errors. onversion Trans action, Provider Unknown - 01/18/2015 5:16 AM PDT Nurse Progress Note by Yady Singh RN at 01/18/15515 Author: Yady Singh RN Service: (none) Author Type: Registered Nurse Filed: 01/18/152104 Date of Service: 01/18/15515 Status: Signed Forklift Operator: Yady Singh RN (Registered Nurse) Pt taken [...] Date of Service: 01/17/15 162 Status: Signed Forklift Operator: Jose Maria Espinal MD (Physician) Related Notes: Original Note by Jose Maria Espinal MD (Physician) filed at 01/17/152012 [facility] Service: Hospitalist Progress Note Pt: Cole Ernst AGE/SEX: 69 y.o. female : 1945 ROOM: [address] [place] [address] History of Present Illness: " The patient [...] who called EMS. Patient was taken to [facility] in [place]. Susie ent was noted to have a [...] Patient had borderline blood pressure. While at [facility] with systolic in the low 90s. [...] CT done several days ago while in [place]. She also stat es that her vomiting and diarrhea have significantly improved. She denies any fevers, hemat emesis, melena, bright red blood per rectum, hematuria, dysuria, she denies any leg pain or swelling. No palpitations. She states she does have a history of "kidney disease" and was told that it was secondary to cyclosporine. However, she is not seen kidney specialist [facility] her liver transplant.".....per admitting MD/Dr. Hartman. [...] as n oted. I urged the staff midwife/apprenticeship director to introduce a hat so that sample [...] contrast. Prior study for comparison: None FINDINGS: 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 deg enerative changes [...] LA/Ao: 1.57 D-E Excursion: 2.11 cm E-F [place]: 0.09 m/s EPSS: 0.48 cm HR: 77.41 [...] TV A Billy: 0.66 m/s TV Dec [place]: 4.36 m/s2 TV Dec Time: 184.41 ms TV E Billy: 0.80 m/s TV E/A Rat io: 1.21 Trimming Caser: NEDRA Authenticated by: Gil Coronel MD Report [...] nutritional supplements as recommend ed by nutrition service/pole shaver. Jose Maria Espinal MD 01/17/2015 4:29 PM onversion Transa ction, Provider Unknown - 01/17/2015 3:15 PM PDT Case Management by PHUONG Sandhu at 01/17/15 1515 Author: PHUONG Sandhu Service: (none) Author Type: American Sign Language Teacher Filed: 01/17/15 1518 Date of Service: 01/17/155 Status: Signed Forklift Operator: PHUONG Sandhu (American Sign Language Teacher) 01/17/15 1500 Discharge Planning Evaluation Admitting Diagnosis Near syncope, elevated tropinin, non-stemi, CKD Anticipated Disposition Facility Type intermediate facility Medicare Important Message (MEREDITH) Given Longterm [facility] Other (comment) ([facility]) CATERING ASSOCIATE met with Pt for discharge planning, on board with going to [facility] when medically ready. CATERING ASSOCIATE p/c to [facility] - will accept Pt when medically ready. [facility] (73 miles) [address] [place] [address], [place] Aerologist: Will DCP: [facility] Transportation: [facility] Facility Van - Aerologist: Will [phone] Medicare important message signed and copy in chart LUIS FOUNTAIN, Banquet Prep Cook [phone] cell Rosangela Zavala MD - 01/17/2015 1:11 PM PDT Progress Notes by Rosangela Steinberg MD at 01/17/15 1311 Author: Rosangela Steinberg MD Service: Infectious Disease Author Type: Physician Filed: 01/17/15 5367 Date of Service: 01/17/15 1311 Status: Signed Forklift Operator: Rosangela Steinberg MD (Physician) [facility] Service: Infectious Disease Progress Note Hospital [...] vomiting and diarrhea. Had initially presented to [facility] in [place] with similar complaints. Was foun d to have an elevated troponin. She was mainly admitted as a non-STEMI. Found to have a leuk ocytosis. Since patient is immunocompromised, she was started empirically on IV ceftriaxone. Chest x-ray showed no infiltrate. Patient denies any recent fevers or chills. She went to [facility] mainly becau se of syncope. Prior [...] extraluminal fluid collection abdomen pelvis without contrast [[id number]] Impression 1. Hypoinflated chest, but no evident infiltrate chest 1 view [[id number]] Impression 1. Indication for study and thus [...] 01/16/152137 Date of Service: 01/16/152127 Status: Signed Forklift Operator: Juju Riggins MD (Physician) [facility] Service: Cardiology Progress Note Hospital Day: [...] Author: PHUONG Sandhu Service: (none) Author Type: American Sign Language Teacher Filed: 01/16/156 Date of Service: 01/16/151642 Status: Signed Forklift Operator: PHUONG Sandhu (American Sign Language Teacher) 01/16/15 1600 Discharge Planning Evaluation Admitting Diagnosis Near syncope, elevated tropinin, non-stemi, CKD Anticipated Disposition Facility Type intermediate facility Longterm Facility Other (comment) ([facility]) PHUONG received p/c from Will, admissions at [facility], states they are willi ng to accept Pt to their Longterm Facility, states their house physician will not pre scribe Methadone. Will states she will start authorization process with [employer] who is Managing the Medicare benefits. Will states the first 20 days are covered at 100% then day 21 will be $100.00 a day. DCP: [facility] or Home LUIS FOUNTAIN,Banquet Prep Cook [phone] cell Jose Maria Grimes MD - 01/16/2015 11:29 AM PDTFormatting of this note might be different from th e original. Progress Notes by Jose Maria Espinal MD at 01/16/15 1129 Author: Jose Maria Espinal MD Service: Hospitalist Author Type: Physician Filed: 01/17/15 1149 Date of Service: 01/16/15 1129 Status: Signed Forklift Operator: Jose Maria Espinal MD (Physician) Related Notes: Original Note by Jose Maria Espinal MD (Physician) filed at 01/16/15 1137 [facility] Service: Hospitalist Progress Note Pt: Cole Ernst AGE/SEX: 69 y.o. female : 1945 ROOM: [address] [place] [address] History of Present Illness: " The patient [...] who called EMS. Patient was taken to [facility] in [place]. Susie ent was noted to have a [...] Patient had borderline blood pressure. While at [facility] with systolic in the low 90s. [...] CT done several days ago while in [place]. She also stat es that her vomiting and diarrhea have significantly improved. She denies any fevers, hemat emesis, melena, bright red blood per rectum, hematuria, dysuria, she denies any leg pain or swelling. No palpitations. She states she does have a history of "kidney disease" and was told that it was secondary to cyclosporine. However, she is not seen kidney specialist [facility] her liver transplant.".....per admitting MD/Dr. Hartman. [...] as n oted. I urged the staff midwife/apprenticeship director to introduce a hat so that sample [...] contrast. Prior study for comparison: None FINDINGS: 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 deg enerative changes [...] LA/Ao: 1.57 D-E Excursion: 2.11 cm E-F [place]: 0.09 m/s EPSS: 0.48 cm HR: 77.41 [...] TV A Billy: 0.66 m/s TV Dec [place]: 4.36 m/s2 TV Dec Time: 184.41 ms TV E Billy: 0.80 m/s TV E/A Rat io: 1.21 Trimming Caser: NEDRA Authenticated by: Gil Coronel MD Report [...] pressure has been showing increasing trend since mi toprolol has been held on admission due [...] Date of Service: 01/16/15 1102 Status: Signed Forklift Operator: Natalio Benito PT (Physical Therapist) 01/16/15 1102 PT Last Visit PT Received On 01/16/15 Reason for Treatment Deconditioning;Other (comment) (NSTEMI; Syncope) Requires PT Follow Up Awaiting tx order Follow up PT Only? No PT Eval/Reassessment Date 01/16/15 Assistance Required 1 person Squaring Machine Operator Needed No Home Environment Type of Home Apartment ground level Home Exterior Layout Entry steps none Home Interior Layout Lives on main level with bedroom/bathroom Bathroom Shower/Tub Tub/shower unit Bathroom Toilet Standard Bathroom Equipment Shower stool;Grab bars in shower/bath;Grab bars outside of shower/bath Bathroom Accessibility Other (Comment) (Small bathroom) Home Equipment Walker 4 wheeled;Cane single point Prior Function Level of Avenue Modified independent with functional mobility;Modified independent wi [...] (sitting in recliner w/ call light and CAREER AND TRANSITION TEACHER present) Restraints Initially in Place No Precautions [...] Eval/Reassessment Date 01/16/15 Assistance Required 1 person Squaring Machine Operator Needed No Precautions Other Precautions Fall Risk [...] support. Patient in the recli ner w/ CAREER AND TRANSITION TEACHER present at end of session, no new [...] (sitting in recliner w/ call light and CAREER AND TRANSITION TEACHER present) Restraints Initially in Place No Plan [...] Date of Service: 01/16/15 1045 Status: Signed Forklift Operator: Nupur Tadeo MD (Physician) [facility] Service: Infectious Disease Progress Note Hospital [...] diarrhea. Had initially presented to [facility] in [place] with similar complaints. Was found to have an elevated troponin . She was mainly admitted as a non-STEMI. Found to have a leukocytosis. Since patient is imm unocompromised, she was started empirically on IV ceftriaxone. Chest x-ray showed no infiltrate. Patient denies any recent fevers or chills. She went to [facility] mainly becau se of syncope. Prior [...] Author: PHUONG Sandhu Service: (none) Author Type: American Sign Language Teacher Filed: 01/16/15 1042 Date of Service: 01/16/15 1030 Status: Signed Forklift Operator: PHUONG Sandhu (American Sign Language Teacher) 01/16/15 1000 Discharge Planning Evaluation Admitting Diagnosis Near syncope, elevated tropinin, non-stemi, CKD Anticipated Disposition Facility Type intermediate facility CATERING ASSOCIATE met with Pt and discussed discharge planning, states she has concerns returning home at this time, as Pt resides alone. CATERING ASSOCIATE discussed rehab options, SNF vs Home Health vs Outpatient PT. Pt states her sister (Annie Tipton [phone] cell) assists with IADLs as Pt does [...] interested in [facility] [place], due to close proximity to her home. CATERING ASSOCIATE faxe d SNF referral. Pt is a [...] placement at [facility] [place] LUIS FOUNTAIN, Banquet Prep Cook [phone] cell Luisito Mejía - 01/16/2015 9:12 AM PDTFormatting of this note might be different from the or iginal. Progress Notes by Luisito Thomas MD at 01/16/15911 Author: Luisito Thomas MD Service: Nephrology Author Type: Physician Filed: 01/20/15 1907 Date of Service: 01/16/15911 Status: Signed Forklift Operator: Luisito Thomas MD (Physician) [facility] Service: NEPHROLOGY PROGRESS Note Cole Ernst 69 y.o. [phone] [id number] female [facility] Day: LOS: 2 days The patient is a 69 y.o. 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 High CIWA this shift =4. Patient c/o generalized pain, treated with PRN [place] per orders. Patient observed to be sle eping, following PRN medication and repositioning. Patient continues to be NSR-ST on tele. Vitals stable. Will continue to monitor patient. ose Maria Black MD - 01/15/2015 3:19 PM PDTFormatting of this note might be different from armando tellez original. Progress Notes by Jose Maria Espinal MD at 01/15/15 2939 Author: Jose Maria Espinal MD Service: Hospitalist Author Type: Physician Filed: 01/16/15 0925 Date of Service: 01/15/151518 Status: Signed Forklift Operator: Jose Maria Espinal MD (Physician) Related Notes: Original Note by Jose Maria Espinal MD (Physician) filed at 01/15/151939 [facility] Service: Hospitalist Progress Note Pt: Cole [...] who called EMS. Patient was taken to [facility] in [place]. Susie ent was noted to have a [...] Patient had borderline blood pressure. While at [facility] with systolic in the low 90s. [...] CT done several days ago while in [place]. She also stat es that her vomiting and diarrhea have significantly improved. She denies any fevers, hemat emesis, melena, bright red blood per rectum, hematuria, dysuria, she denies any leg pain or swelling. No palpitations. She states she does have a history of "kidney disease" and was told that it was secondary to cyclosporine. However, she is not seen kidney specialist [facility] her liver transplant.".....per admitting MD/Dr. Hartman. [...] contrast. Prior study for comparison: None FINDINGS: 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 deg enerative changes [...] LA/Ao: 1.57 D-E Excursion: 2.11 cm E-F [place]: 0.09 m/s EPSS: 0.48 cm HR: 77.41 [...] TV A Billy: 0.66 m/s TV Dec [place]: 4.36 m/s2 TV Dec Time: 184.41 ms TV E Billy: 0.80 m/s TV E/A Rat io: 1.21 Trimming Caser: NEDRA Authenticated by: Gil Coronel MD Report [...] (none) Author Type: Registered Dietitian Filed: 01/15/15 1433 Date of Service: 01/15/151429 Status: Signed Forklift Operator: Ronda Michaels RD (Registered Dietitian) 01/15/15 5857 Subjective Timepoint Admit Pt c/o In to [...] Estimated Energy Needs Total Energy Estimated Needs 0803-3913 kcal Method for Estimating Needs 25-30 kcal/kg [...] Date of Service: 01/15/15 1043 Status: Signed Forklift Operator: Luisito Thomas MD (Physician) [facility] Service: NEPHROLOGY PROGRESS Note Cole Ernst 69 y.o. [id number] 4445/4445-1 female [facility] Day: LOS: 1 day The patient is a 69 y.o. 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 See ED Record for Physician Inter pretation. Confirmed by MUSE READ ONLY, -COMPUTER ([id number]), news editor Shala Gramajo ([id number]) on 01/14/2015 11:17 [...] K 4.4 11/15/2014 S/P L[facility] TXP [facility] 1991 IMMUNOSUPPRESSION ON CYCLOSPORIN 75 MG BID ON AZA 50 MG DAILY HYPOPHOSPHATEMIA REPLACE TO KEEP P GREATER THAN 2.5 REPEAT P LEVEL IN AM Lab Results Component Value Date PHOS 1.5* 01/15/2015 PHOS 1.4* 01/14/2015 Abdominal pain / LEUCOCYTOSIS PER HOSPITALIST CT SCAN WITH ORAL CONTRAST DONE Possible UTI pyuria on her urinalysis from [facility] on ceftriaxone CASE DISCUSSED IN DETAIL [...] 01/14/152316 Date of Service: 01/14/152315 Status: Signed Forklift Operator: Giovanna Bejarano RN (Registered Nurse) Called Dr. [...] 01/14/152226 Date of Service: 01/14/152226 Status: Signed Forklift Operator: Jazz Rahman RPH (Pharmacist) Clinical Pharmacy Note - Renal Dose Adjustment Cole Ernst 69 y.o. female Ht Readings from Last 1 Encounters: 01/14/15 1.6 m (5' 3") Wt Readings from Last 1 Encounters: 01/14/15 89.6 kg (197 lb 8.5 oz) CREATININE Date Value Ref Range Status 01/14/2015 2.4* 0.50 - 1.00 mg/dL Final Comment: Testing performed at [facility];[address] [place] [address];[place] [address] CREATININE: 2.4 mg/dL ABNORMAL (01/14/15 1548) Estimated [...] Case Management by PHUONG Crump LICSW at 01/14/157 Author: PHUONG Crump LICSW Service: (none) Author Type: Banquet Prep Cook Filed: 01/14/151734 Date of Service: 01/14/151733 Status: Signed Forklift Operator: PHUONG Crump LICSW (Banquet Prep Cook) 01/14/151727 Discharge Planning Evaluation Admitting Diagnosis Near syncope, elevated tropinin, non-stemi, CKD Readmission No Living Arrangements Alone Support Systems Family members;Friends/neighbors Type of Residence Private residence House type Apartment Bathrooms on 1st Floor 1-Full Independent with ADL's Yes Independent with Mobility No-comment Home Care Services No Mental Status Oriented Power of Social Work Job Titles No;Other (comment) Resources Transportation issues No Prescription Plan Yes Name of Pharmacy [facility] in [place], [place] Previous home health equipment Yes Anticipated Disposition Facility Type Home Met with patient and discussed discharge planning, Pt is a 69 y.o., female who reports skyleri mack alone. Patient reports her sister, Annie Tipton, will transport her home a t discharge. Patient's PCP is: KI DE JESUS (General) Patient's insurance:b [employer] Health Plan & Medicare Coverage concerns: Medication coverage/concerns: Doreen Bedside Delivery: [facility] resources utilized / needed: TBD [...] preparation was | | | performed by [facility], [facility], [facility] | | | [facility] [place] [address] (Systems Analyst Developer: Martin | | Tariq Galvan M.D.; NINA#: [id number]). Diagnostician: Martin Galvan | | | Pathologist [...] EXTERNAL | | | | performed at [facility], [address] | LAB | | | | [address], | | | | | | [place] [address] | | | | + + + [...] EXTERNAL | | | | performed at [facility] [place], [address] | | LAB | | | | [address], | | | | | | [place] [address] | | | | + + + [...] | | | | | [place] [address] | | | | + + + + + + | K | 3.4 (L)Comment: Testing | 3.5 - 4.9 | EXTERNAL | | | | performed at [facility], [address] | mmol/L | LAB | | | | [address], | | | | | | [place] [address] | | | | + + + + + + | Cl | 101Comment: Testing | 99 - 109 mmol/L | EXTERNAL | | | | performed at [facility], [address] | | LAB | | | | [address], | | | | | | [place] [address] | | | | + + + + + + | CO2 | 28Comment: Testing | 23 - 32 mmol/L | EXTERNAL | | | | performed at [facility], [address] | | LAB | | | | [address], | | | | | | [place] [address] | | | | + + + + + + | Anion Gap | 10Comment: Testing | 5 - 20 mmol/L | EXTERNAL | | | | performed at [facility], [address] | | LAB | | | | [address], | | | | | | [place] [address] | | | | + + + + + + | Glucose, | 107 (H)Comment: Testing | 65 - 99 mg/dL | EXTERNAL | | | Fasting | performed at [facility], [address] | | LAB | | | | [address], | | | | | | [place] [address] | | | | + + + + + + | BUN | 8Comment: Testing | 8 - 25 mg/dL | EXTERNAL | | | | performed at [facility], [address] | | LAB | | | | [address], | | | | | | [place] [address] | | | | + + + + + + | Creatinine | 0.96Comment: Testing | 0.50 - 1.00 | EXTERNAL | | | | performed at [facility], [address] | mg/dL | LAB | | | | [address], | | | | | | [place] [address] | | | | + + + + + + | BUN/Creatin | 8Comment: Testing | | EXTERNAL | | | ine Ratio | performed at [facility], [address] | | LAB | | | | [address], | | | | | | [place] [address] | | | | + + + + + + | Calcium | 8.6Comment: Testing | 8.5 - 10.5 | EXTERNAL | | | | performed at [facility], [address] | mg/dL | LAB | | | | [address], | | | | | | [place] [address] | | | | + + + [...] | | | | | | at [facility], [address] | | | | | | [address], | | | | | | [place] [address] | | | | + + + [...] + + + | COLE ERNST 1945 [place] MYOCARDIAL PERFUSION SPECT - STRESS | | [...] - 01/05/2019 4:32 AM PDT COLE Corcoran [id number] MYOCARDIAL | | PERFUSION SPECT - STRESS [...] EXTERNAL | | | | performed at [facility], [address] | K/uL | LAB | | | | [address], | | | | | | [place] [address] | | | | + + + + + + | RED CELL | 3.41 (L)Comment: Testing | 3.70 - 5.10 | EXTERNAL | | | COUNT | performed at [facility], [address] | M/uL | LAB | | | | [address], | | | | | | [place] [address] | | | | + + + + + + | Hgb | 11.9Comment: Testing | 11.3 - 15.5 | EXTERNAL | | | | performed at [facility], [address] | g/dL | LAB | | | | [address], | | | | | | [place] [address] | | | | + + + + + + | Hematocrit, | 35.7Comment: Testing | 34.0 - 46.0 % | EXTERNAL | | | POC | performed at [facility], [address] | | LAB | | | | [address] [address], | | | | | | [place] [address] | | | | + + + + + + | MCV | 104.6 (H)Comment: | 80.0 - 100.0 fl | EXTERNAL | | | | Testing performed at | | LAB | | | | [facility], [address] [facility] | | | | | | [place] | | | | | | [address] | | | | + + + + + + | MCH | 34.9 (H)Comment: Testing | 27.0 - 34.0 pg | EXTERNAL | | | | performed at [facility], [address] | | LAB | | | | [address], | | | | | | [place] [address] | | | | + + + + + + | MCHC | 33.3Comment: Testing | 32.0 - 35.5 | EXTERNAL | | | | performed at [facility], [address] | g/dL | LAB | | | | [address], | | | | | | [place] [address] | | | | + + + + + + | RDW-CV | 50.8Comment: Testing | 37 - 53 fl | EXTERNAL | | | | performed at [facility], [address] | | LAB | | | | [address], | | | | | | [place] [address] | | | | + + + [...] | | | | | [place] [address] | | | | + + + + + + | MPV | 12.6Comment: Testing | fl | EXTERNAL | | | | performed at [facility], [address] | | LAB | | | | [address], | | | | | | [place] [address] | | | | + + + + + + | Differentia | AUTOMATEDComment: | | EXTERNAL | | | l Type | Testing performed at | | LAB | | | | [facility], [address] | | | | | | [place] | | | | | | [address] | | | | + + + + + + | % Segmented | 40.31Comment: Testing | % | EXTERNAL | | | | performed at [facility], [address] | | LAB | | | Neutrophils | [address], | | | | | | [place] [address] | | | | + + + + + + | % | 39.78Comment: Testing | % | EXTERNAL | | | Lymphocytes | performed at [facility], [address] | | LAB | | | | [address], | | | | | | [place] [address] | | | | + + + + + + | % Monocytes | 12.51Comment: Testing | % | EXTERNAL | | | | performed at [facility], [address] | | LAB | | | | [address], | | | | | | [place] [address] | | | | + + + + + + | % | 6.45Comment: Testing | % | EXTERNAL | | | Eosinophils | performed at [facility], [address] | | LAB | | | | [address], | | | | | | [place] [address] | | | | + + + + + + | % Basophils | 0.95Comment: Testing | % | EXTERNAL | | | | performed at [facility], [address] | | LAB | | | | [address], | | | | | | [place] [address] | | | | + + + + + + | Absolute | 3.26Comment: Testing | 1.90 - 7.40 | EXTERNAL | | | Segmented | performed at [facility], [address] | K/uL | LAB | | | Neutrophils | [address], | | | | | | [place] [address] | | | | + + + + + + | Absolute | 3.21Comment: Testing | 1.00 - 3.90 | EXTERNAL | | | Lymphocytes | performed at [facility], [address] | K/uL | LAB | | | | [address], | | | | | | [place] [address] | | | | + + + + + + | Absolute | 1.01 (H)Comment: Testing | 0.00 - 0.80 | EXTERNAL | | | Monocytes | performed at [facility], [address] | K/uL | LAB | | | | [address], | | | | | | [place] [address] | | | | + + + + + + | Absolute | 0.52 (H)Comment: Testing | 0.00 - 0.50 | EXTERNAL | | | Eosinophils | performed at [facility], [address] | K/uL | LAB | | | | [address], | | | | | | [place] [address] | | | | + + + + + + | Absolute | 0.08Comment: Testing | 0.00 - 0.10 | EXTERNAL | | | Basophils | performed at [facility], [address] | K/uL | LAB | | | | [address], | | | | | | [place] [address] | | | | + + + + + + | RBC | RBC AND PLT MORPHOLOGY | | EXTERNAL | | | Morphology | APPEAR NORMALComment: | | LAB | | | | Testing performed at | | | | | | [facility], [address] [facility] | | | | | | [place] | | | | | | [address] | | | | + + + [...] EXTERNAL | | | | performed at [facility], [address] | | LAB | | | | [address], | | | | | | [place] [address] | | | | + + + [...] | | | | | [place] [address] | | | | + + + [...] | | | | | [place] [address] | | | | + + + + + + | K | 3.8Comment: Testing | 3.5 - 4.9 | EXTERNAL | | | | performed at [facility], [address] | mmol/L | LAB | | | | [address], | | | | | | [place] [address] | | | | + + + + + + | Cl | 101Comment: Testing | 99 - 109 mmol/L | EXTERNAL | | | | performed at [facility], [address] | | LAB | | | | [address], | | | | | | [place] [address] | | | | + + + + + + | CO2 | 27Comment: Testing | 23 - 32 mmol/L | EXTERNAL | | | | performed at [facility], [address] | | LAB | | | [address], | | | | | | [place] [address] | | | | + + + + + + | Anion Gap | 12Comment: Testing | 5 - 20 mmol/L | EXTERNAL | | | | performed at [facility], [address] | | LAB | | | | [address], | | | | | | [place] [address] | | | | + + + + + + | Glucose, | 118 (H)Comment: Testing | 65 - 99 mg/dL | EXTERNAL | | | Fasting | performed at [facility], [address] | | LAB | | | | [address], | | | | | | [place] [address] | | | | + + + + + + | BUN | 7 (L)Comment: Testing | 8 - 25 mg/dL | EXTERNAL | | | | performed at [facility], [address] | | LAB | | | | [address], | | | | | | [place] [address] | | | | + + + + + + | Creatinine | 0.79Comment: Testing | 0.50 - 1.00 | EXTERNAL | | | | performed at [facility], [address] | mg/dL | LAB | | | | [address], | | | | | | [place] [address] | | | | + + + + + + | BUN/Creatin | 9Comment: Testing | | EXTERNAL | | | ine Ratio | performed at [facility], [address] | | LAB | | | | [address], | | | | | | [place] [address] | | | | + + + + + + | Calcium | 7.5 (L)Comment: Testing | 8.5 - 10.5 | EXTERNAL | | | | performed at [facility], [address] | mg/dL | LAB | | | | [address], | | | | | | [place] [address] | | | | + + + + + + | Protein, | 7.2Comment: Testing | 6.3 - 8.2 g/dL | EXTERNAL | | | Total | performed at [facility], [address] | | LAB | | | | [address], | | | | | | [place] [address] | | | | + + + + + + | Albumin | 3.1 (L)Comment: Testing | 3.3 - 4.8 g/dL | EXTERNAL | | | | performed at [facility], [address] | | LAB | | | | [address], | | | | | | [place] [address] | | | | + + + + + + | Globulin | 4.1Comment: Testing | 1.3 - 4.9 g/dL | EXTERNAL | | | | performed at [facility], [address] | | LAB | | | | [address], | | | | | | [place] [address] | | | | + + + + + + | A/G Ratio | 0.8 (L)Comment: Testing | 1.0 - 2.4 | EXTERNAL | | | | performed at [facility], [address] | | LAB | | | | [address], | | | | | | [place] [address] | | | | + + + + + + | Bilirubin | 0.5Comment: Testing | 0.1 - 1.5 mg/dL | EXTERNAL | | | Total | performed at [facility], [address] | | LAB | | | | [address], | | | | | | [place] [address] | | | | + + + + + + | ALP, | 76Comment: Testing | 35 - 115 U/L | EXTERNAL | | | External | performed at [facility], [address] | | LAB | | | | [address], | | | | | | [place] [address] | | | | + + + + + + | AST | 43Comment: Testing | 10 - 45 U/L | EXTERNAL | | | | performed at [facility], [address] | | LAB | | | | [address], | | | | | | [place] [address] | | | | + + + + + + | ALT | 25Comment: Testing | 10 - 65 U/L | EXTERNAL | | | | performed at [facility], [address] | | LAB | | | | [address], | | | | | | [place] [address] | | | | + + + [...] | LAB | | | | [address];[place] | | | | | | [address] | | | | + + + [...] | performed at [facility] | | LAB | | | | [address] [facility];[place], [place] | | | | | | [address] | | | | + + + [...] | | LAB | | | | [address];[place] | | | | | | [address] | | | | + + + [...] | LAB | | | | [address];[place], [place] | | | | | | [address] | | | | + + [...] Real | | | | | | [address] | | | | + + [...] | LAB | | | | [address] [facility];[place], [place] | | | | | | [address] | | | | + + + [...] | | | | | [place] [address] | | | | + + + + + + | RED CELL | 3.40 (L)Comment: Testing | 3.70 - 5.10 | EXTERNAL | | | COUNT | performed at [facility], [address] | [address] | LAB | | | | [address], | | | | | | [place] [address] | | | | + + + + + + | Hgb | 12.0Comment: Testing | 11.3 - 15.5 | EXTERNAL | | | | performed at [facility], [address] | g/dL | LAB | | | | [address], | | | | | | [place] [address] | | | | + + + + + + | Hematocrit, | 35.8Comment: Testing | 34.0 - 46.0 % | EXTERNAL | | | POC | performed at [facility], [address] | | LAB | | | | [address], | | | | | | [place] [address] | | | | + + + + + + | MCV | 105.3 (H)Comment: | 80.0 - 100.0 fl | EXTERNAL | | | | Testing performed at | | LAB | | | | [facility], [address] [facility] | | | | | | [place] | | | | | | [address] | | | | + + + + + + | MCH | 35.3 (H)Comment: Testing | 27.0 - 34.0 pg | EXTERNAL | | | | performed at [facility], [address] | | LAB | | | | [address], | | | | | | [place] [address] | | | | + + + + + + | MCHC | 33.6Comment: Testing | 32.0 - 35.5 | EXTERNAL | | | | performed at [facility], [address] | g/dL | LAB | | | | [address], | | | | | | [place] [address] | | | | + + + + + + | RDW-CV | 50.8Comment: Testing | 37 - 53 fl | EXTERNAL | | | | performed at [facility], [address] | | LAB | | | | [address], | | | | | | [place] [address] | | | | + + + + + + | Platelet | 149 (L)Comment: Testing | 150 - 400 K/uL | EXTERNAL | | | Count | performed at [facility], [address] | | LAB | | | Plasma | [address], | | | | | | [place] [address] | | | | + + + + + + | MPV | 13.0Comment: Testing | fl | EXTERNAL | | | | performed at [facility], [address] | | LAB | | | | [address], | | | | | | [place] [address] | | | | + + + + + + | Differentia | AUTOMATEDComment: | | EXTERNAL | | | l Type | Testing performed at | | LAB | | | | [facility], [address] | | | | | | [place] | | | | | | [address] | | | | + + + + + + | % Segmented | 52.08Comment: Testing | % | EXTERNAL | | | | performed at [facility], [address] | | LAB | | | Neutrophils | [address], | | | | | | [place] [address] | | | | + + + + + + | % | 32.37Comment: Testing | % | EXTERNAL | | | Lymphocytes | performed at [facility], [address] | | LAB | | | | [address], | | | | | | [place] [address] | | | | + + + + + + | % Monocytes | 10.07Comment: Testing | % | EXTERNAL | | | | performed at [facility], [address] | | LAB | | | | [address], | | | | | | [place] [address] | | | | + + + + + + | % | 4.41Comment: Testing | % | EXTERNAL | | | Eosinophils | performed at [facility], [address] | | LAB | | | | [address], | | | | | | [place] [address] | | | | + + + + + + | % Basophils | 1.07Comment: Testing | % | EXTERNAL | | | | performed at [facility], [address] | | LAB | | | | [address], | | | | | | [place] [address] | | | | + + + + + + | Absolute | 5.59Comment: Testing | 1.90 - 7.40 | EXTERNAL | | | Segmented | performed at [facility], [address] | K/uL | LAB | | | Neutrophils | [address], | | | | | | [place] [address] | | | | + + + + + + | Absolute | 3.48Comment: Testing | 1.00 - 3.90 | EXTERNAL | | | Lymphocytes | performed at [facility], [address] | K/uL | LAB | | | | [address], | | | | | | [place] [address] | | | | + + + + + + | Absolute | 1.08 (H)Comment: Testing | 0.00 - 0.80 | EXTERNAL | | | Monocytes | performed at [facility], [address] | [address] | LAB | | | | [address], | | | | | | [place] [address] | | | | + + + + + + | Absolute | 0.47Comment: Testing | 0.00 - 0.50 | EXTERNAL | | | Eosinophils | performed at [facility], [address] | K/uL | LAB | | | | [address], | | | | | | [place] [address] | | | | + + + + + + | Absolute | 0.12 (H)Comment: Testing | 0.00 - 0.10 | EXTERNAL | | | Basophils | performed at [facility], [address] | K/uL | LAB | | | | [address], | | | | | | [place] [address] | | | | + + + + + + | RBC | NORMAL RBC MORPHComment: | | EXTERNAL | | | Morphology | Testing performed at | | LAB | | | | [facility], [address] [facility] | | | | | | [place] | | | | | | [address] | | | | + + + + + + | Differentia | 1+ GIANT PLTComment: | | EXTERNAL | | | l Comments | Testing performed at | | LAB | | | | [facility], [address] | | | | | | [place] | | | | | | [address] | | | | + + + [...] | | | | | [place] [address] | | | | + + + + + + | K | 3.2 (L)Comment: Testing | 3.5 - 4.9 | EXTERNAL | | | | performed at [facility], [address] | mmol/L | LAB | | | | [address], | | | | | | [place] [address] | | | | + + + + + + | Cl | 100Comment: Testing | 99 - 109 mmol/L | EXTERNAL | | | | performed at [facility], [address] | | LAB | | | | [address], | | | | | | [place] [address] | | | | + + + + + + | CO2 | 28Comment: Testing | 23 - 32 mmol/L | EXTERNAL | | | | performed at [facility], [address] | | LAB | | | | [address], | | | | | | [place] [address] | | | | + + + + + + | Anion Gap | 13Comment: Testing | 5 - 20 mmol/L | EXTERNAL | | | | performed at [facility], [address] | | LAB | | | | [address], | | | | | | [place] [address] | | | | + + + + + + | Glucose, | 114 (H)Comment: Testing | 65 - 99 mg/dL | EXTERNAL | | | Fasting | performed at [facility], [address] | | LAB | | | | [address], | | | | | | [place] [address] | | | | + + + + + + | BUN | 8Comment: Testing | 8 - 25 mg/dL | EXTERNAL | | | | performed at [facility], [address] | | LAB | | | | [address], | | | | | | [place] [address] | | | | + + + + + + | Creatinine | 0.94Comment: Testing | 0.50 - 1.00 | EXTERNAL | | | | performed at [facility], [address] | mg/dL | LAB | | | | [address], | | | | | | [place] [address] | | | | + + + + + + | BUN/Creatin | 9Comment: Testing | | EXTERNAL | | | ine Ratio | performed at [facility], [address] | | LAB | | | | [address], | | | | | | [place] [address] | | | | + + + + + + | Calcium | 7.8 (L)Comment: Testing | 8.5 - 10.5 | EXTERNAL | | | | performed at [facility], [address] | mg/dL | LAB | | | | [address], | | | | | | [place] [address] | | | | + + + + + + | Protein, | 7.8Comment: Testing | 6.3 - 8.2 g/dL | EXTERNAL | | | Total | performed at [facility], [address] | | LAB | | | | [address], | | | | | | [place] [address] | | | | + + + + + + | Albumin | 3.3Comment: Testing | 3.3 - 4.8 g/dL | EXTERNAL | | | | performed at [facility], [address] | | LAB | | | [address], | | | | | | [place] [address] | | | | + + + + + + | Globulin | 4.5Comment: Testing | 1.3 - 4.9 g/dL | EXTERNAL | | | | performed at [facility], [address] | | LAB | | | [address], | | | | | | [place] [address] | | | | + + + + + + | A/G Ratio | 0.7 (L)Comment: Testing | 1.0 - 2.4 | EXTERNAL | | | | performed at [facility], [address] | | LAB | | | | [address], | | | | | | [place] [address] | | | | + + + + + + | Bilirubin | 0.4Comment: Testing | 0.1 - 1.5 mg/dL | EXTERNAL | | | Total | performed at [facility], [address] | | LAB | | | | [address], | | | | | | [place] [address] | | | | + + + + + + | ALP, | 83Comment: Testing | 35 - 115 U/L | EXTERNAL | | | External | performed at [facility], [address] | | LAB | | | | [address], | | | | | | [place] [address] | | | | + + + + + + | AST | 34Comment: Testing | 10 - 45 U/L | EXTERNAL | | | | performed at [facility], [address] | | LAB | | | | [address], | | | | | | [place] [address] | | | | + + + + + + | ALT | 24Comment: Testing | 10 - 65 U/L | EXTERNAL | | | | performed at [facility], [address] | | LAB | | | | [facility], | | | | | | [place] [address] | | | | + + + [...] | | | | | [place] [address] | | | | + + + [...] | performed at [facility] | | | | | | [address] [facility];[place], [place] | | | | | | [address] | | | | + + + [...] | | | | | | [address];[place], [place] | | | | | | [address] | | | | + + + [...] | LAB | | | | [address];[place], [place] | | | | | | [address] | | | | + + + [...] | LAB | | | | [address];[place], [place] | | | | | | [address] | | | | + + + [...] TESTING. | | | Testing performed at [facility], [address] | | | [place] [address] | | + + + + +---------+ [...] | Testing performed at | | | [facility], [address] [place] [address] | | + + + + +---------+ [...] NONE SEEN to 1+ Testing performed at [facility], [address] [facility] | | | [place] [address] | | + + + + +---------+ [...] antigen detected by ICA Testing performed at [facility], [address] | | | [address] [facility] [place] [address] | | + + + + +---------+ [...] | | | | | [place] | | | | | | [address] | | | | + + + [...] [place] | | | | | | [place] [address] | | | | + + [...] | | LAB | | | | [facility];[place], [place] | | | | | | [address] | | | | + + + + + + | CMV DNA | NOT DETECTEDComment: | | EXTERNAL | | | QUANTITATIV | Unit: IU/MLTesting | | LAB | | | E INTERP | performed at [facility], [address] | | | | | | [place] | | | | | | [place] [address] | | | | + + + + + + | CMV DNA, | NOT DETECTEDComment: | | EXTERNAL | | | Qual PCR | Unit: COPIES/MLTesting | | LAB | | | | performed at [facility], [address] | | | | | | [place] | | | | | | [place] [address] | | | | + + + [...] [place] | | | | | | [address] | | | | + + + [...] EXTERNAL | | | | performed at [facility], [address] | K/uL | LAB | | | | [address], | | | | | | [place] [address] | | | | + + + + + + | RED CELL | 3.28 (L)Comment: Testing | 3.70 - 5.10 | EXTERNAL | | | COUNT | performed at [facility], [address] | M/uL | LAB | | | | [address], | | | | | | [place] [address] | | | | + + + + + + | Hgb | 11.6Comment: Testing | 11.3 - 15.5 | EXTERNAL | | | | performed at [facility], [address] | g/dL | LAB | | | | [address], | | | | | | [place] [address] | | | | + + + + + + | Hematocrit, | 34.5Comment: Testing | 34.0 - 46.0 % | EXTERNAL | | | POC | performed at [facility], [address] | | LAB | | | | [address], | | | | | | [place] [address] | | | | + + + + + + | MCV | 105.1 (H)Comment: | 80.0 - 100.0 fl | EXTERNAL | | | | Testing performed at | | LAB | | | | [facility], [address] | | | | | | [place] | | | | | | [address] | | | | + + + + + + | MCH | 35.3 (H)Comment: Testing | 27.0 - 34.0 pg | EXTERNAL | | | | performed at [facility], [address] | | LAB | | | | [address], | | | | | | [place] [address] | | | | + + + + + + | MCHC | 33.5Comment: Testing | 32.0 - 35.5 | EXTERNAL | | | | performed at [facility], [address] | g/dL | LAB | | | | [address], | | | | | | [place] [address] | | | | + + + + + + | RDW-CV | 50.8Comment: Testing | 37 - 53 fl | EXTERNAL | | | | performed at [facility], [address] | | LAB | | | | [address], | | | | | | [place] [address] | | | | + + + + + + | Platelet | 144 (L)Comment: Testing | 150 - 400 K/uL | EXTERNAL | | | Count | performed at [facility], [address] | | LAB | | | Plasma | [address], | | | | | | [place] [address] | | | | + + + + + + | MPV | 13.0Comment: Testing | fl | EXTERNAL | | | | performed at [facility], [address] | | LAB | | | | [address], | | | | | | [place] [address] | | | | + + + + + + | Differentia | AUTOMATEDComment: | | EXTERNAL | | | l Type | Testing performed at | | LAB | | | | [facility], [address] | | | | | | [place] | | | | | | [address] | | | | + + + + + + | % Segmented | 37.99Comment: Testing | % | EXTERNAL | | | | performed at [facility], [address] | | LAB | | | Neutrophils | [address], | | | | | | [place] [address] | | | | + + + + + + | % | 43.49Comment: Testing | % | EXTERNAL | | | Lymphocytes | performed at [facility], [address] | | LAB | | | | [address], | | | | | | [place] [address] | | | | + + + + + + | % Monocytes | 11.24Comment: Testing | % | EXTERNAL | | | | performed at [facility], [address] | | LAB | | | | [address], | | | | | | [place] [address] | | | | + + + + + + | % | 5.97Comment: Testing | % | EXTERNAL | | | Eosinophils | performed at [facility], [address] | | LAB | | | | [address], | | | | | | [place] [address] | | | | + + + + + + | % Basophils | 1.31Comment: Testing | % | EXTERNAL | | | | performed at [facility], [address] | | LAB | | | | [address], | | | | | | [place] [address] | | | | + + + + + + | Absolute | 4.01Comment: Testing | 1.90 - 7.40 | EXTERNAL | | | Segmented | performed at [facility], [address] | K/uL | LAB | | | Neutrophils | [address], | | | | | | [place] [address] | | | | + + + + + + | Absolute | 4.59 (H)Comment: Testing | 1.00 - 3.90 | EXTERNAL | | | Lymphocytes | performed at [facility], [address] | [address]/u[address] | LAB | | | | [address], | | | | | | [place] [address] | | | | + + + + + + | Absolute | 1.19 (H)Comment: Testing | 0.00 - 0.80 | EXTERNAL | | | Monocytes | performed at [facility], [address] | K/uL | LAB | | | | [address], | | | | | | [place] [address] | | | | + + + + + + | Absolute | 0.63 (H)Comment: Testing | 0.00 - 0.50 | EXTERNAL | | | Eosinophils | performed at [facility], [address] | K/uL | LAB | | | | [address], | | | | | | [place] [address] | | | | + + + + + + | Absolute | 0.14 (H)Comment: Testing | 0.00 - 0.10 | EXTERNAL | | | Basophils | performed at [facility], [address] | K/uL | LAB | | | | [address], | | | | | | [place] [address] | | | | + + + + + + | RBC | NORMAL RBC MORPHComment: | | EXTERNAL | | | Morphology | Testing performed at | | LAB | | | | [facility], [address] | | | | | | [place] | | | | | | [address] | | | | + + + + + + | Differentia | 2+ GIANT PLTComment: | | EXTERNAL | | | l Comments | Testing performed at | | LAB | | | | [facility], [address] | | | | | | [place] | | | | | | [address] | | | | + + + [...] [place] | | | | | | [address] | | | | + + + [...] | | | (REF) | [facility] [place], [address] | | LAB | | | | [address], | | | | | | [place] [address] | | | | + + + [...] | | | | | [place] [address] | | | | + + + [...] EXTERNAL | | | | performed at [facility], [address] | | LAB | | | | [address], | | | | | | [place] [address] | | | | + + + [...] | | | | | [place] [address] | | | | + + + + + + | K | 3.0 (L)Comment: Testing | 3.5 - 4.9 | EXTERNAL | | | | performed at [facility], [address] | mmol/L | LAB | | | | [address], | | | | | | [place] [address] | | | | + + + + + + | Cl | 104Comment: Testing | 99 - 109 mmol/L | EXTERNAL | | | | performed at [facility], [address] | | LAB | | | | [address], | | | | | | [place] [address] | | | | + + + + + + | CO2 | 22 (L)Comment: Testing | 23 - 32 mmol/L | EXTERNAL | | | | performed at [facility], [address] | | LAB | | | | [address], | | | | | | [place] [address] | | | | + + + + + + | Anion Gap | 15Comment: Testing | 5 - 20 mmol/L | EXTERNAL | | | | performed at [facility], [address] | | LAB | | | | [address], | | | | | | [place] [address] | | | | + + + + + + | Glucose, | 82Comment: Testing | 65 - 99 mg/dL | EXTERNAL | | | Fasting | performed at [facility], [address] | | LAB | | | | [address], | | | | | | [place] [address] | | | | + + + + + + | BUN | 13Comment: Testing | 8 - 25 mg/dL | EXTERNAL | | | | performed at [facility], [address] | | LAB | | | | [address], | | | | | | [place] [address] | | | | + + + + + + | Creatinine | 1.01 (H)Comment: Testing | 0.50 - 1.00 | EXTERNAL | | | | performed at [facility], [address] | mg/dL | LAB | | | | [address], | | | | | | [place] [address] | | | | + + + + + + | BUN/Creatin | 13Comment: Testing | | EXTERNAL | | | ine Ratio | performed at [facility], [address] | | LAB | | | | [address], | | | | | | [place] [address] | | | | + + + + + + | Calcium | 7.7 (L)Comment: Testing | 8.5 - 10.5 | EXTERNAL | | | | performed at [facility], [address] | mg/dL | LAB | | | | [address], | | | | | | [place] [address] | | | | + + + + + + | Protein, | 7.1Comment: Testing | 6.3 - 8.2 g/dL | EXTERNAL | | | Total | performed at [facility], [address] | | LAB | | | | [address], | | | | | | [place] [address] | | | | + + + + + + | Albumin | 3.2 (L)Comment: Testing | 3.3 - 4.8 g/dL | EXTERNAL | | | | performed at [facility], [address] | | LAB | | | | [address], | | | | | | [place] [address] | | | | + + + + + + | Globulin | 3.9Comment: Testing | 1.3 - 4.9 g/dL | EXTERNAL | | | | performed at [facility], [address] | | LAB | | | | [address], | | | | | | [place] [address] | | | | + + + + + + | A/G Ratio | 0.8 (L)Comment: Testing | 1.0 - 2.4 | EXTERNAL | | | | performed at [facility], [address] | | LAB | | | | [address], | | | | | | [place] [address] | | | | + + + + + + | Bilirubin | 0.4Comment: Testing | 0.1 - 1.5 mg/dL | EXTERNAL | | | Total | performed at [facility], [address] | | LAB | | | | [address], | | | | | | [place] [address] | | | | + + + + + + | ALP, | 76Comment: Testing | 35 - 115 U/L | EXTERNAL | | | External | performed at [facility], [address] | | LAB | | | | [address], | | | | | | [place] [address] | | | | + + + + + + | AST | 26Comment: Testing | 10 - 45 U/L | EXTERNAL | | | | performed at [facility], [address] | | LAB | | | | [address], | | | | | | [place] [address] | | | | + + + + + + | ALT | 19Comment: Testing | 10 - 65 U/L | EXTERNAL | | | | performed at [facility], [address] | | LAB | | | | [address], | | | | | | [place] [address] | | | | + + + [...] Jose, | | | | | | [place] [address] | | | | + + + [...] LAB | | | | performed at [facility], [address] | | | | | | [facility], | | | | | | [place] [address] | | | | + + + [...] | | | Urine | performed at [facility], [address] | | LAB | | | Random | [address], | | | | | | [place] [address] | | | | + + + [...] | at L, [address] [place] [address] | | + + + + +---------+ [...] LA/Ao: 1.57 D-E Excursion: 2.11 cm E-F [place]: 0.09 m/s | | | EPSS: 0.48 [...] TV A Billy: 0.66 m/s TV Dec [place]: 4.36 m/s2 TV Dec | | | Time: 184.41 ms TV E Billy: 0.80 m/s TV E/A Ratio: 1.21 | | | Trimming Caser: NEDRA Authenticated by: Gil Coronel MD Report [...] | Index (A-L): 40.51 ml/m2LAAs A2C: 24.56 [id number] A-L A2C: 76.32 mlLAESV MOD A2C: | | 73.52 mlLALs A2C: 6.71 cmLAAs A4C: 24.96 [id number] A-L A4C: 79.86 mlLAESV MOD A4C: | | 77.20 mlLALs A4C: 6.62 cmAo Diam: 2.73 cmAV Cusp: 2.27 cmLA Diam: 4.29 | | cmLA/Ao: 1.57D-E Excursion: 2.11 cmE-F [place]: 0.09 m/sEPSS: 0.48 cmHR: 77.41 | | BPMAV maxP.05 mmHgAV meanP.21 mmHgAV Vmax: 1.73 m/Sorin Vmean: 1.25 m/Sorin | | VTI: 34.68 cmAVA Vmax: 2.07 cm2AVA (VTI): 1.85 fr2LADX Dopp: 2.60 l/mnsz7CNRO | | Dopp: 5.05 l/minHR: 78.81 BPMLVOT [...] | m/sTV A Billy: 0.66 m/sTV Dec [place]: 4.36 m/s2TV Dec Time: 184.41 msTV E Billy: 0.80 | | m/sTV E/A Ratio: 1.21 Trimming Caser: GDAuthenticated by: Gil Coronel [facility] | | Date/Time: 01-15-2015 09:12:05 IMPRESSION: 1. [...] | |D-E Excursion: 2.11 cm | |E-F [place]: 0.09 m/s | |EPSS: 0.48 cm | [...] A Billy: 0.66 m/s | |TV Dec [place]: 4.36 m/s2 | |TV Dec Time: 184.41 ms | |TV E Billy: 0.80 m/s | |TV E/A Ratio: 1.21 | | | |Trimming Caser: NEDRA | |Authenticated by: Gil Coronel MD [...] performed at [facility];[address] [facility];[place] [address] 027 NAP1 BI | | | 027 NAP1 BI PRESUMPTIVE NEGATIVE | | | Detection of 027 NAP1 BI strains of C. difficile is presumptive and | | | for epidemiological purposes and not intended to guide or monitor | | | treatment for C. difficile infections. Testing performed at [facility];[address] | | | [facility];[place] [address] | | + + + + +---------+ [...] | | | | | [place] [address] | | | | + + + + + + | Complement | 19.4Comment: Testing | 10 - 40 mg/dL | EXTERNAL | | | Comp 4 | performed at [facility], [address] | | LAB | | | | [address], | | | | | | [place] [address] | | | | + + + [...] | | | | | | [address];[place], [place] | | | | | | [address] | | | | + + + [...] | | | | | Blvd;[place] [address] | | | | + + + + + + | RED CELL | 3.27 (L)Comment: Testing | 3.70 - 5.10 | EXTERNAL | | | COUNT | performed at [facility];[address] | M/uL | LAB | | | | [address];[place] | | | | | | [address] | | | | + + + + + + | Hgb | 11.2 (L)Comment: Testing | 11.3 - 15.5 | EXTERNAL | | | | performed at [facility];[address] | g/dL | LAB | | | | [address];[place] | | | | | | [address] | | | | + + + + + + | Hematocrit, | 34.4Comment: Testing | 34.0 - 46.0 % | EXTERNAL | | | POC | performed at [facility];[address] | | LAB | | | | [address];[place] | | | | | | [address] | | | | + + + + + + | MCV | 105.2 (H)Comment: | 80.0 - 100.0 fl | EXTERNAL | | | | Testing performed at | | LAB | | | | [facility];[address] | [address];[place] [address] | | | | + + + + + + | MCH | 34.2 (H)Comment: Testing | 27.0 - 34.0 pg | EXTERNAL | | | | performed at [facility];[address] | | LAB | | | | [address];[place] | | | | | | [address] | | | | + + + + + + | MCHC | 32.5Comment: Testing | 32.0 - 35.5 | EXTERNAL | | | | performed at [facility];[address] | g/dL | LAB | | | | [address];[place] | | | | | | [address] | | | | + + + + + + | RDW-CV | 50.3Comment: Testing | 37 - 53 fl | EXTERNAL | | | | performed at [facility];[address] | | LAB | | | | [address];[place] | | | | | | [address] | | | | + + + + + + | Platelet | 160Comment: Testing | 150 - 400 K/uL | EXTERNAL | | | Count | performed at [facility];[address] | | LAB | | | Plasma | [address];[place] | | | | | | [address] | | | | + + + + + + | MPV | 11.1Comment: Testing | fl | EXTERNAL | | | | performed at [facility];[address] | | LAB | | | | [address];[place] | | | | | | [address] | | | | + + + + + + | Differentia | AUTOMATEDComment: | | EXTERNAL | | | l Type | Testing performed at | | LAB | | | | [facility];[address] | [address];[place] [address] | | | | + + + + + + | % Segmented | 50.65Comment: Testing | % | EXTERNAL | | | | performed at [facility];[address] | | LAB | | | Neutrophils | [address];[place] | | | | | | [address] | | | | + + + + + + | % | 37.06Comment: Testing | % | EXTERNAL | | | Lymphocytes | performed at [facility];[address] | | LAB | | | | [address];[place] | | | | | | [address] | | | | + + + + + + | % Monocytes | 9.60Comment: Testing | % | EXTERNAL | | | | performed at [facility];[address] | | LAB | | | | [address];[place] | | | | | | [address] | | | | + + + + + + | % | 1.30Comment: Testing | % | EXTERNAL | | | Eosinophils | performed at [facility];[address] | | LAB | | | | [address];[place] | | | | | | [address] | | | | + + + + + + | % Basophils | 1.39Comment: Testing | % | EXTERNAL | | | | performed at [facility];[address] | | LAB | | | | [address];[place] | | | | | | [address] | | | | + + + + + + | Absolute | 6.64Comment: Testing | 1.90 - 7.40 | EXTERNAL | | | Segmented | performed at [facility];[address] | K/uL | LAB | | | Neutrophils | [address];[place] | | | | | | [address] | | | | + + + + + + | Absolute | 4.86 (H)Comment: Testing | 1.00 - 3.90 | EXTERNAL | | | Lymphocytes | performed at [facility];[address] | K/uL | LAB | | | | [address];[place] | | | | | | [address] | | | | + + + + + + | Absolute | 1.26 (H)Comment: Testing | 0.00 - 0.80 | EXTERNAL | | | Monocytes | performed at [facility];[address] | K/uL | LAB | | | | [address];[place] | | | | | | [address] | | | | + + + + + + | Absolute | 0.17Comment: Testing | 0.00 - 0.50 | EXTERNAL | | | Eosinophils | performed at [facility];[address] | K/uL | LAB | | | | [address];[place] | | | | | | [address] | | | | + + + + + + | Absolute | 0.18 (H)Comment: Testing | 0.00 - 0.10 | EXTERNAL | | | Basophils | performed at [facility];[address] | K/uL | LAB | | | | [address];[place] | | | | | | [address] | | | | + + + [...] | | LAB | | | | [facility];[place], [place] | | | | | | [address] | | | | + + + [...] | | | | | | [address];[place], [place] | | | | | | [address] | | | | + + + [...] [place] | | | | | | [address] | | | | + + + + + + | K | 3.7Comment: SLT | 3.5 - 4.9 | EXTERNAL | | | | HEMOLYSISTesting | mmol/L | LAB | | | | performed at [facility];[address] | | | | | | [address];[place] | | | | | | [address] | | | | + + + + + + | Cl | 110 (H)Comment: Testing | 99 - 109 mmol/L | EXTERNAL | | | | performed at [facility];[address] | | LAB | | | | [address];[place] | | | | | | [address] | | | | + + + + + + | CO2 | 24Comment: Testing | 23 - 32 mmol/L | EXTERNAL | | | | performed at [facility];[address] | | LAB | | | | [address];[place] | | | | | | [address] | | | | + + + [...] [place] | | | | | | [address] | | | | + + + + + + | BUN | 24Comment: Testing | 8 - 25 mg/dL | EXTERNAL | | | | performed at [facility];[address] | | LAB | | | | [address];[place] | | | | | | [address] | | | | + + + + + + | Creatinine | 1.7 (H)Comment: Testing | 0.50 - 1.00 | EXTERNAL | | | | performed at [facility];888 | mg/dL | LAB | | | | [address];[place] | | | | | | [address] | | | | + + + + + + | BUN/Creatin | 14Comment: Testing | | EXTERNAL | | | ine Ratio | performed at [facility];[address] | | LAB | | | | [address];[place] | | | | | | [address] | | | | + + + + + + | Calcium | 7.4 (L)Comment: Testing | 8.5 - 10.5 | EXTERNAL | | | | performed at [facility];888 | mg/dL | LAB | | | | [address];[place] | | | | | | [address] | | | | + + + + + + | Protein, | 7.0Comment: Testing | 6.3 - 8.2 g/dL | EXTERNAL | | | Total | performed at [facility];[address] | | LAB | | | | [address];[place] | | | | | | [address] | | | | + + + + + + | Albumin | 2.6 (L)Comment: Testing | 3.3 - 4.8 g/dL | EXTERNAL | | | | performed at [facility];[address] | | LAB | | | | [address];[place] | | | | | | [address] | | | | + + + + + + | Globulin | 4.3Comment: Testing | 1.3 - 4.9 g/dL | EXTERNAL | | | | performed at [facility];[address] | | LAB | | | | [address];[place] | | | | | | [address] | | | | + + + + + + | A/G Ratio | 0.6 (L)Comment: Testing | 1.0 - 2.4 | EXTERNAL | | | | performed at [facility];[address] | | LAB | | | | [address];[place] | | | | | | [address] | | | | + + + + + + | Bilirubin | 0.4Comment: Testing | 0.1 - 1.5 mg/dL | EXTERNAL | | | Total | performed at [facility];[address] | | LAB | | | | [address];[place] | | | | | | [address] | | | | + + + + + + | ALP, | 92Comment: Testing | 35 - 115 U/L | EXTERNAL | | | External | performed at [facility];[address] | | LAB | | | | [address];[place] | | | | | | [address] | | | | + + + + + + | AST | 35Comment: SLT | 10 - 45 U/L | EXTERNAL | | | | HEMOLYSISTesting | | LAB | | | | performed at [facility];[address] | | | | | | [facility];[place] | | | | | | [address] | | | | + + + + + + | ALT | 29Comment: Testing | 10 - 65 U/L | EXTERNAL | | | | performed at [facility];[address] | | LAB | | | | [address];[place] | | | | | | [address] | | | | + + + [...] | at [facility];[address] | | | | | [address];[place] [address] | | | | + + + [...] | LAB | | | | [address];[place], [place] | | | | | | [address] | | | | + + + [...] + + | Historically converted procedure from [facility] environment | EXTERNAL LAB | [...] [place];[address] | | | | | | [facility];[place], [place] | | | | | | [address] | | | | + + + [...] GROWTH | | | Testing performed at [facility], | | | [address] [place] [address] | | + + + + +---------+ [...] | | study for comparison: None FINDINGS: 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 | | | [...] study | | for comparison: None FINDINGS: 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 degenerative changes of [...] | performed at [facility];[address] [place] [address];[place] [address] | | + + + + +---------+ [...] | | at [facility];[address] [place] [address] | | | | | | [facility];[place] [address] | | | | + + + [...] | LAB | | | | [address];[place], [place] | | | | | | [address] | | | | + + + [...] | performed at [facility] | | LAB | | | | [address];[place] | | | | | | [address] | | | | + + + [...] | LAB | | | | [address];[place], [place] | | | | | | [address] | | | | + + + [...] | | | | | [place] [address] | | | | + + + [...] [place] | | | | | | [address] | | | | + + + [...] (500), | | | | | | news editor Shala Gramajo | | | | [...] | LAB | | | | [address];[place] | | | | | | [address] | | | | + + + [...] | | LAB | | | | [facility];[place], [place] | | | | | | [address] | | | | + + + [...] | performed at [facility] | | | | | | [address];[place], [place] | | | | | | [address] | | | | + + + [...] | LAB | | | | [address];[place], [place] | | | | | | [address] | | | | + + + [...] | LAB | | | | [address];[place] | | | | | | [address] | | | | + + + [...] | | | | | [address];[place] [address] | | | | + + + + + + | RED CELL | 4.17Comment: Testing | 3.70 - 5.10 | EXTERNAL | | | COUNT | performed at [facility];[address] | M/uL | LAB | | | | [address];[place] | | | | | | [address] | | | | + + + + + + | Hgb | 14.6Comment: Testing | 11.3 - 15.5 | EXTERNAL | | | | performed at [facility];888 | g/dL | LAB | | | | [address];[place] | | | | | | [address] | | | | + + + + + + | Hematocrit, | 42.7Comment: Testing | 34.0 - 46.0 % | EXTERNAL | | | POC | performed at [facility];[address] | | LAB | | | | [address];[place] | | | | | | [address] | | | | + + + + + + | MCV | 102.3 (H)Comment: | 80.0 - 100.0 fl | EXTERNAL | | | | Testing performed at | | LAB | | | | [facility];[address] | | | | | | [address];[place] [address] | | | | + + + + + + | MCH | 35.0 (H)Comment: Testing | 27.0 - 34.0 pg | EXTERNAL | | | | performed at [facility];[address] | | LAB | | | | [address];[place] | | | | | | [address] | | | | + + + + + + | MCHC | 34.2Comment: Testing | 32.0 - 35.5 | EXTERNAL | | | | performed at [facility];888 | g/dL | LAB | | | | [address];[place] | | | | | | [address] | | | | + + + + + + | RDW-CV | 49.9Comment: Testing | 37 - 53 fl | EXTERNAL | | | | performed at [facility];[address] | | LAB | | | | [address];[place] | | | | | | [address] | | | | + + + + + + | Platelet | 209Comment: Testing | 150 - 400 K/uL | EXTERNAL | | | Count | performed at [facility];[address] | | LAB | | | Plasma | [address];[place] | | | | | | [address] | | | | + + + [...] [place] | | | | | | [address] | | | | | |Testing performed at [facility];[address];[place] [address] | | | | | | | | | | + + + + + + | Differentia | MANUALComment: Testing | | EXTERNAL | | | l Type | performed at [facility];[address] | | LAB | | | | [address];[place] | | | | | | [address] | | | | + + + + + + | Segmented | 58Comment: Testing | % | EXTERNAL | | | Neutrophils | performed at [facility];[address] | | LAB | | | Manual | [address];[place] | | | | | | [address] | | | | + + + + + + | Lymphocytes | 32Comment: Testing | % | EXTERNAL | | | Manual | performed at [facility];[address] | | LAB | | | | [address];[place] | | | | | | [address] | | | | + + + + + + | Monocytes | 9Comment: Testing | % | EXTERNAL | | | Manual | performed at [facility];[address] | | LAB | | | | [address];[place] | | | | | | [address] | | | | + + + + + + | Eosinophils | 1Comment: Testing | % | EXTERNAL | | | Manual | performed at [facility];[address] | | LAB | | | | [address];[place] | | | | | | [address] | | | | + + + + + + | Absolute | 9.39 (H)Comment: Testing | 1.90 - 7.40 | EXTERNAL | | | Neutrophils | performed at [facility];888 | K/uL | LAB | | | | [address];[place] | | | | | | [address] | | | | + + + + + + | Absolute | 5.18 (H)Comment: Testing | 1.00 - 3.90 | EXTERNAL | | | Lymphocytes | performed at [facility];888 | K/uL | LAB | | | | [address];[place] | | | | | | [address] | | | | + + + + + + | Absolute | 1.46 (H)Comment: Testing | 0.00 - 0.80 | EXTERNAL | | | Monocytes | performed at [facility];888 | K/uL | LAB | | | | [address];[place] | | | | | | [address] | | | | + + + + + + | Absolute | 0.16Comment: Testing | 0.00 - 0.50 | EXTERNAL | | | Eosinophils | performed at [facility];888 | K/uL | LAB | | | | [address];[place] | | | | | | [address] | | | | + + + + + + | Na | 140Comment: Testing | 135 - 143 | EXTERNAL | | | | performed at [facility];888 | mmol/L | LAB | | | | [address];[place] | | | | | | [address] | | | | + + + + + + | K | 2.8 (L)Comment: Testing | 3.5 - 4.9 | EXTERNAL | | | | performed at [facility];888 | mmol/L | LAB | | | | [address];[place] | | | | | | [address] | | | | + + + [...] [place] | | | | | | [address] | | | | + + + + + + | Anion Gap | 14Comment: Testing | 5 - 20 mmol/L | EXTERNAL | | | | performed at [facility];[address] | | LAB | | | | [address];[place] | | | | | | [address] | | | | + + + + + + | Glucose, | 107 (H)Comment: Testing | 65 - 99 mg/dL | EXTERNAL | | | Fasting | performed at [facility];[address] | | LAB | | | | [address];[place] | | | | | | [address] | | | | + + + + + + | BUN | 28 (H)Comment: Testing | 8 - 25 mg/dL | EXTERNAL | | | | performed at [facility];[address] | | LAB | | | | [address];[place] | | | | | | [address] | | | | + + + + + + | Creatinine | 2.4 (H)Comment: Testing | 0.50 - 1.00 | EXTERNAL | | | | performed at [facility];888 | mg/dL | LAB | | | | [address];[place] | | | | | | [address] | | | | + + + + + + | BUN/Creatin | 12Comment: Testing | | EXTERNAL | | | ine Ratio | performed at [facility];[address] | | LAB | | | | [address];[place] | | | | | | [address] | | | | + + + + + + | Calcium | 8.1 (L)Comment: Testing | 8.5 - 10.5 | EXTERNAL | | | | performed at [facility] [place];888 | mg/dL | LAB | | | | [address];[place] | | | | | | [address] | | | | + + + + + + | Protein, | 9.3 (H)Comment: Testing | 6.3 - 8.2 g/dL | EXTERNAL | | | Total | performed at [facility] [place];888 | | LAB | | | | [address];[place] | | | | | | [address] | | | | + + + + + + | Albumin | 3.3Comment: Testing | 3.3 - 4.8 g/dL | EXTERNAL | | | | performed at [facility] [place];[address] | | LAB | | | | [address];[place] | | | | | | [address] | | | | + + + + + + | Globulin | 6.0 (H)Comment: Testing | 1.3 - 4.9 g/dL | EXTERNAL | | | | performed at [facility] [place];[address] | | LAB | | | | [address];[place] | | | | | | [address] | | | | + + + + + + | A/G Ratio | 0.5 (L)Comment: Testing | 1.0 - 2.4 | EXTERNAL | | | | performed at [facility] [place];[address] | | LAB | | | | [address];[place] | | | | | | [address] | | | | + + + + + + | Bilirubin | 0.4Comment: Testing | 0.1 - 1.5 mg/dL | EXTERNAL | | | Total | performed at [facility] [place];[address] | | LAB | | | | [address];[place] | | | | | | [address] | | | | + + + + + + | ALP, | 129 (H)Comment: Testing | 35 - 115 U/L | EXTERNAL | | | External | performed at [facility] [place];[address] | | LAB | | | | [address];[place] | | | | | | [address] | | | | + + + + + + | AST | 39Comment: Testing | 10 - 45 U/L | EXTERNAL | | | | performed at [facility] [place];[address] | | LAB | | | | [address];[place] | | | | | | [address] | | | | + + + + + + | ALT | 38Comment: Testing | 10 - 65 U/L | EXTERNAL | | | | performed at [facility];[address] | | LAB | | | | [address];[place] | | | | | | [address] | | | | + + + [...] | | | | | [address];[place] [address] | | | | + + + + + + | CK, Total | 151Comment: Testing | 30 - 240 U/L | EXTERNAL | | | | performed at [facility] [place];[address] | | LAB | | | | [address];[place] | | | | | | [address] | | | | + + + [...] [place] | | | | | | [address] | | | | + + + + + + | aPTT, | 26Comment: Testing | 23 - 32 seconds | EXTERNAL | | | Patient | performed at [facility] [place];[address] | | LAB | | | | [address];[place] | | | | | | [address] | | | | + + + + + + | CK-MB | 3.9 (H)Comment: Testing | 0.5 - 3.6 ng/mL | EXTERNAL | | | | performed at [facility];[address] | | LAB | | | | [address];[place] | | | | | | [address] | | | | + + + [...] | | | | | | [address] [facility];[place], [place] | | | | | | [address] | | | | + + + [...]
--- OUTSIDE RECORDS SUMMARY | ~2019-05-19 | XMS | Encounter Summary ---
Demographics + + + | Address | [address] | | | [place] [address] | + + + | Home Phone | | + + + | Preferred Language | Unknown | + + + | Marital Status | Unknown | + + + | Anabaptism Affiliation | Unknown | + + + | Race | Unknown | + + + | Ethnic Group | Unknown | + + + Author + + + | Author | [facility] | + + + | Organization | [facility] | + + + | Address | Unknown | + + + | Phone | Unavailable | + + + Care Team Providers + +------+ + | Care Manager Mission Name | Role | Phone | + [...] | | | | | [place], | [place], [place] | | | | | [place] [address] | [address] | | | | | [phone] | | | +--------+ + + + [...]
--- OUTSIDE RECORDS SUMMARY | ~2019-05-19 | XMS | Clinical Summary ---
Demographics + + + | Address | [address] | | | [place] [address] | + + + | Home Phone | | + + + | Preferred Language | Unknown | + + + | Marital Status | | + + + | Zoroastrian Affiliation | 1041 | + + + | Race | Unknown | + + + | Ethnic Group | Unknown | + + + Author + + + | Author | [facility] (Historical as of | | | 01-06-19) | + + + | Organization | [facility] (Historical as of | | | 01-06-19) [...] Team Providers + +------+ + | Care Rotary Soil Stabilizer Name | Role | Phone | + [...] | MA - GENERIC | MA-GEN | [phone] | Medica | | | | | [...] | | | | | | | [address] | + +--------+ +--------+ + +
--- OUTSIDE RECORDS SUMMARY | ~2019-05-19 | XMS | Encounter Summary ---
Demographics + + + | Address | [address] | | | [place] [address] | + + + | Home Phone | | + + + | Preferred Language | Unknown | + + + | Marital Status | Single | + + + | Methodist Affiliation | 1041 | + + + | Race | Unknown | + + + | Ethnic Group | Unknown | + + + Author + + + | Author | [facility] | | | and [place] | + + + | Organization | [facility] | | | [...] Team Providers + +------+ + | Care Ict Programmer Name | Role | Phone | + +------+ + | Yovani Santana MD | PCP | | + +------+ + Encounter Details +--------+ + + + + | Date | Type | Department | Care Team | Description | +--------+ + + + + | 03/26/ | Hospital | [facility] | Melendez, Gary, | Hypoxemia; Kyphosis | | 2014 | Encounter | MED CTR PULMONARY | MD [address] | deformity of spine | | | | FUNCTION [address] | [place], [place] | | | | | [place], | [address] | | | | | [place] [address] | | | | | | [phone] | | | +--------+ + + + [...] Melendez MD 03/27/2014 13:24 | | | [facility] | | + + + + + [...] 03/26/14Electronically signed by: Gary Melendez MD 03/27/2014 13:24[facility] | | [facility] | | | |No prior pulmonary function tests available for comparison. | | | |Test performed: 03/26/14 | |Electronically signed by: Gary Melendez MD 03/27/2014 13:24 | |[facility] | + + documented in this encounter Visit Diagnoses + + | Diagnosis | + + | Hypoxemia | + + | Kyphosis deformity of spine Kyphosis (acquired) (postural) | + + documented in this encounter"
--- OUTSIDE RECORDS SUMMARY | ~2019-05-19 | XMS | Encounter Summary ---
Demographics + + + | Address | [address] | | | [place] [address] | + + + | Home Phone | | + + + | Preferred Language | Unknown | + + + | Marital Status | Single | + + + | Buddhist Affiliation | 1041 | + + + [...] Team Providers + +------+ + | Care Ginner Name | Role | Phone | + +------+ + | Yovani Santana MD | PCP | | + +------+ + Encounter Details +--------+ + + + + | Date | Type | Department | Care Team | Description | +--------+ + + + + | 03/26/ | Hospital | [facility] | Melendez, Gary, | Hypoxemia; Kyphosis | | 2014 | Encounter | MED CTR PULMONARY | MD [address] | deformity of spine | | | | FUNCTION [address] | [place], [place] | | | | | [place], | [address] | | | | | [place] [address] | | | | | | [phone] | | | +--------+ + + + [...] Melendez MD 03/27/2014 13:24 | | | [facility] | | + + + + [...] 03/26/14Electronically signed by: Gary Melendez MD 03/27/2014 13:24[facility] | | [facility] | | | |No prior pulmonary function tests available for comparison. | | | |Test performed: 03/26/14 | |Electronically signed by: Gary Melendez MD 03/27/2014 13:24 | |[facility] | + + documented in this encounter Visit Diagnoses + + | Diagnosis | + + | Hypoxemia | + + | Kyphosis deformity of spine Kyphosis (acquired) (postural) | + + documented in this encounter"
--- OUTSIDE RECORDS SUMMARY | ~2019-05-19 | XMS | Clinical Summary ---
Demographics + + + | Address | [address] | | | [place] [address] | + + + | Home Phone | | + + + | Preferred Language | Unknown | + + + | Marital Status | Unknown | + + + | Sabianist Affiliation | Unknown | + + + | Race | Unknown | + + + | Ethnic Group | Unknown | + + + Author + + + | Author | [facility] | + + + | Organization | [facility] | + + + | Address | Unknown | + + + | Phone | Unavailable | + + + Care Team Providers + +------+ + | Care Pediatric Dentist Name | Role | Phone | + +------+ + PCP | Unavailable | + +------+ + Source Comments JAYDEN is fully live on both EpicCare Ambulatory and EpicCare InPatient.[facility] Allergies Not on File Medications Not on [...]
--- OUTSIDE RECORDS SUMMARY | ~2019-05-19 | XMS | Clinical Summary ---
Demographics + + + | Address | [address] | | | [place] [address] | + + + | Home Phone | | + + + | Preferred Language | Unknown | + + + | Marital Status | Single | + + + | Methodist Affiliation | 1041 | + + + | Race | Unknown | + + + | Ethnic Group | Unknown | + + + Author + + + | Author | [facility] | | | and [place] | + + + | Organization | [facility] | | | [...] Team Providers + +------+ + | Care Display Coordinator Name | Role | Phone | [...] | [facility] | [facility] | [id number] | 05/23/19 | | | Medica | [...] Person | Self | [birth year] | [address] | | Codie | al/Fam | | 1946 | [id number] | | | [place] | | | [address] (Home) | [place] | | | | | | | [address] | + +--------+ +--------+ + + Advance Directives + + + + + | Type | Date Recorded | Patient | Explanation | | | | Crankshaft Straightener | | + + + + + | Power of | | | | | Map Editor | | | | + + + + + | Advance | 05/10/2014 | | | | Directive | 12:33 PM | | | + + + + +
--- OUTSIDE RECORDS SUMMARY | ~2019-05-19 | XMS | Encounter Summary ---
Demographics + + + | Address | [address] | | | [place] [address] | + + + | Home Phone | | + + + | Preferred Language | Unknown | + + + | Marital Status | Single | + + + | Restoration Affiliation | 1041 | + + + [...] Providers + +------+ + | Care Senior Erp Consultant Name | Role | Phone | [...] + + | 03/26/ | Office | [facility] | Gary Melendez, | Hypoxemia (Primary | | 2014 | Visit | PULMONARY [address] | MD [address] | Dx); Kyphosis | | | | [place], | [place], [place] | deformity of spine; | | | | [place] [address] | [address] | Restrictive lung | | | | [phone] | | disease | +--------+---------+ + + [...] + | MISCELLANEOUS LAB | | | [phone] | + +---------+ + + | MISCELANIOUS LAB | | | [phone] | + +---------+ + + documented in this encounter Visit Diagnoses + + | Diagnosis | + + | Hypoxemia - Primary | + + | 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
--- OUTSIDE RECORDS SUMMARY | ~2019-05-19 | XMS | Encounter Summary ---
Demographics + + + | Address | [address] | | | [place] [address] | + + + | Home Phone [...] Team Providers + +------+ + | Care Cable Ferry Operator Name | Role | Phone | + +------+ + | Yovani Santana MD | PCP | | + +------+ + Encounter Details +--------+ + + + + | Date | Type | Department | Care Team | Description | +--------+ + + + + | 05/10/ | Hospital | [facility] | Gary Melendez, | Hypoxemia; | | 2014 | Encounter | MED CTR XRAY [address] | MD [address] | Restrictive lung | | | | [place] | [place], [place] | disease | | | | [place] [address] | [address] | | | | | [phone] | | | | | | | [...] + | MISCELLANEOUS LAB | | | [phone] | + +---------+ + + | MISCELANIOUS LAB | | | [phone] | + +---------+ + + documented in this encounter Visit Diagnoses + + | Diagnosis | + + | Hypoxemia | + + | Restrictive lung disease Other diseases of lung, not elsewhere classified | + + documented in this encounter"
--- OUTSIDE RECORDS SUMMARY | ~2019-05-19 | XMS | Clinical Summary ---
Demographics + + + | Address | [address] | | | [place] [address] | + + + | Home Phone | | + + + | Preferred Language | Unknown | + + + | Marital Status | Unknown | + + + | Yazidism Affiliation | Unknown | + + + | Race | Unknown | + + + | Ethnic Group | Unknown | + + + Author + + + | Author | [facility] | + + + | Organization | [facility] | + + + | Address | Unknown | + + + | Phone | Unavailable | + + + Care Team Providers + +------+ + | Care Appeals Specialist Name | Role | Phone | + +------+ + PCP | Unavailable | + +------+ + Source Comments JAYDEN is fully live on both EpicCare Ambulatory and EpicCare InPatient.[facility] Allergies Not on File Medications [...]
--- OUTSIDE RECORDS SUMMARY | ~2019-05-19 | XMS | Encounter Summary ---
Demographics + + + | Address | [address] | | | [place] [address] | + + + | Home Phone [...] + + | Author | [facility] | | | and [place] | + + + | Organization | [facility] | | [...] Team Providers + +------+ + | Care Group Social Worker Name | Role | Phone | + +------+ + | Rick Osorio DO | PCP | | + +------+ + Encounter Details +--------+ + + + + | Date | Type | Department | Care Team | Description | +--------+ + + + + | 11/15/ | Orders Only | [facility] | Emil Oliva MD | | | 2014 | | NEPRHOLOGY [place] | [address] [facility] | | | | | [address] | [address] [place], [place] | | | | | [address] [place], [place] | [address] | | | | | [address] | | | | | | [phone] | | | +--------+ + + + [...] | | | LAB | | | [facility] | | | | | + + [...]
--- OUTSIDE RECORDS SUMMARY | ~2019-05-19 | XMS | Encounter Summary ---
Demographics + + + | Address | [address] | | | [place] [address] | + + + | Home Phone [...] Team Providers + +------+ + | Care Husker Operator Name | Role | Phone | + +------+ + | Yovani Santana MD | PCP | | + +------+ + Encounter Details +--------+ + + + + | Date | Type | Department | Care Team | Description | +--------+ + + + + | 05/10/ | Hospital | [facility] | Gary Melendez, | Hypoxemia; | | 2014 | Encounter | MED CTR XRAY [address] | MD [address] | Restrictive lung | | | | [place] | [place], [place] | disease | | | | [place] [address] | [address] | | | | | [phone] | | | | | | | [...] + | MISCELLANEOUS LAB | | | [phone] | + +---------+ + + | MISCELANIOUS LAB | | | [phone] | + +---------+ + + documented in this encounter Visit Diagnoses + + | Diagnosis | + + | Hypoxemia | + + | Restrictive lung disease Other diseases of lung, not elsewhere classified | + + documented in this encounter"
--- OUTSIDE RECORDS SUMMARY | ~2019-05-19 | XMS | Encounter Summary ---
Demographics + + + | Address | [address] | | | [place] [address] | + + + | Home Phone [...] Providers + +------+ + | Care Manager Sales Support Name | Role | Phone | + +------+ + | Rick Osorio DO | PCP | | + +------+ + Encounter Details +--------+ + + + + | Date | Type | Department | Care Team | Description | +--------+ + + + + | 11/15/ | Orders Only | [facility] | Emil Oliva MD | | | 2014 | | NEPRHOLOGY [place] | [address] [facility] | | | | | [address] | [address] [place], [place] | | | | | [address] [place], [place] | [address] | | | | | [address] | | | | | | [phone] | | | +--------+ + + + [...] | | | LAB | | | GREEK | | | | | + + [...]
--- OUTSIDE RECORDS SUMMARY | ~2019-05-19 | XMS | Encounter Summary ---
Demographics + + + | Address | [address] | | | [place] [address] | + + + | Home Phone [...] Team Providers + +------+ + | Care Commander Internal Affairs Name | Role | Phone | + [...] [place], [place] | | | | | [place], [place] | [address] | | | | | [address] | | | | | | [phone] | | | +--------+ + + + [...] 0.03 m/s | | | MV Dec Stutsman: 9.74 m/s2 MV DecT: 91.63 ms MV E Billy: 0.89 | | | m/s MV E/A Ratio: 26.03 MV PHT: 26.57 ms MVA By PHT: 8.27 | | | cm2 Septal e': 0.06 m/s Septal E/e': 12.90 Lateral e': | | | 0.09 m/s Lateral E/e': 8.96 RAP: 5 mmHg RVSP: 17.59 mmHg | | | TR maxP.59 mmHg TR Vmax: 1.77 m/s Manager Competitive Intelligence: NAIF | | | Authenticated by: Conor Kemphume Report Date/Time: -- | | | [id number] | | + + + + + [...] cmLVPWd: 1.14 cmLVOT | | Area: 3.33 [id number] Diam: 2.06 cm%FS: 26.43 %EF(Teich): 51.67 %ESV(Teich): [...] (A-L): | | 45.82 ml/m2LAAs A2C: 22.15 [id number] A-L A2C: 71.25 mlLALs A2C: 5.84 cmLAAs A4C: | | 28.64 og7MVHER A-L A4C: 104.24 mlLALs A4C: 6.68 cmRAAs: 14.65 na7UKLDG A-L: | | 33.90 mlRAESV MOD: 34.21 mlRALs: 5.37 cmAV maxP.81 mmHgAV meanP.70 | | mmHgAV Vmax: 1.30 m/Sorin Vmean: 0.90 m/Sorin VTI: 24.74 cmAVA Vmax: 2.36 cm2AVA | | (VTI): 2.24 sr9ASAM maxP.41 mmHgLVOT meanP.88 mmHgLVSI Dopp: 27.63 | | ml/m2LVSV Dopp: 55.54 mlLVOT Vmax: 0.92 m/sLVOT Vmean: 0.64 m/sLVOT VTI: 16.66 | | cmMV A Billy: 0.03 m/sMV Dec Stutsman: 9.74 m/s2MV DecT: 91.63 msMV E Billy: 0.89 m/sMV | | E/A Ratio: 26.03MV PHT: 26.57 msMVA By PHT: 8.27 wb9Whcjyo e': 0.06 m/sSeptal | | E/e': 12.90Lateral e': 0.09 m/sLateral E/e': 8.96RAP: 5 mmHgRVSP: 17.59 mmHgTR | | maxP.59 mmHgTR Vmax: 1.77 m/s Manager Competitive Intelligence: DHAuthenticated by: Conor | | [facility] Date/Time: -- [id number] IMPRESSION: 1. The left ventricle is | [...] A Billy: 0.03 m/s | |MV Dec Stutsman: 9.74 m/s2 | |MV DecT: 91.63 ms [...] |TR Vmax: 1.77 m/s | | | |Manager Competitive Intelligence: NAIF | |Authenticated by: Conor Garcia | |Report Date/Time: -- [id number]:12 | | | |IMPRESSION: | |1. The [...]
--- OUTSIDE RECORDS SUMMARY | ~2019-05-19 | XMS | Encounter Summary ---
Demographics + + + | Address | [address] | | | [place] [address] | + + + | Home Phone | | + + + | Preferred Language | Unknown | + + + | Marital Status | Single | + + + | Yarsani Affiliation | 1041 | + + + | Race | Unknown | + + + | Ethnic Group | Unknown | + + + Author + + + | Author | [facility] | | | and [place] | + + + | Organization | [facility] | | [...] Providers + +------+ + | Care High School Chemistry Teacher Name | Role | Phone | + +------+ + | Rick Osorio DO | PCP | | + +------+ + Encounter Details +--------+ + + + + | Date | Type | Department | Care Team | Description | +--------+ + + + + | 11/15/ | Orders Only | [facility] | Emil Oliva MD | | | 2014 | | NEPHROLOGY [place] | [address] | | | | | [address] | [address] [place], [place] | | | | | [address] [place], [place] | [address] | | | | | [address] | | | | | | [phone] | | | +--------+ + + + [...]
--- OUTSIDE RECORDS SUMMARY | ~2019-05-19 | XMS | Encounter Summary ---
Demographics + + + | Address | [address] | | | [place] [address] | + + + | Home Phone [...] Author + + + | Author | [facility] | | | and [place] | + + + | Organization | [facility] | | | [...] Team Providers + +------+ + | Care Strategic Sourcing Consultant Name | Role | Phone | [...] [address] | Dx) | | | | [place], | [place], [place] | | | | | [place] [address] | [address] | | | | | [phone] | | | +--------+ + + + [...]
--- OUTSIDE RECORDS SUMMARY | ~2019-05-19 | XMS | Encounter Summary ---
Demographics + + + | Address | [address] | | | [place] [address] | + + + | Home Phone [...] Providers + +------+ + | Care Supervisor [place] Name | Role | Phone | + +------+ + | Yovani Santana MD | PCP | | + +------+ + Encounter Details +--------+ + + + + | Date | Type | Department | Care Team | Description | +--------+ + + + + | 01/28/ | Hospital | [facility] | Jacob Smith, | | | 2014 - | Encounter | [facility] | MD Carmelo SANTAMARIA | | | | | CARE FLOOR [address] | [place] [address] | | | 02/03/ | | TIERA SANTAMARIA | [phone] | | | 2014 | | [place], [place] | | | | | | [address] | | | | | | [phone] | | | +--------+ + + + [...] Date of Service: 02/03/15 1029 Status: Signed Hand Compositor: Jose Maria Espinal MD (Physician) Related Notes: Original Note by Jose Maria Espinal MD (Physician) filed at 02/04/15 1345 Service: Hospitalist Physician Discharge Summary Patient ID: [...] transfer from [facility] in [place] for fever of 101 and altered mental s tatus. She was discharged from [facility] on 01/09/15 for elevated troponin and [...] She was brought back in to [facility] for fever and confusion. UA and CXR reportedly negative there. SBP was 90s. She had formed stool there but en route here she did develop watery stool, tested C diff + here.".......per admitting MD/Dr. Smith . The patient was admitted to [facility] with a diagnosis of Clostridium difficile infection while she was being transferred from [facility] with fever and altered mental status. Th e patient has underlying immunosuppression secondary to a remote history of liver transplant on chronic immunosuppressive therapy with azathioprine and cyclosporin. Following her trans fletcher to [facility], she was started on oral vancomycin [...] medically stable for discharge to return to [facility] in [place] on Jan. ADDITIONAL ISSUES 1. Recurrent atelectasis. [...] days. I would urge managing physician at longterm facility where the patient resides in [facility] to check anothe r magnesium [...] Procedure: COLONOSCOPY; Surgeon: Juan Ramey MD; Location: [facility] ENDOSCOPY; Service: Gastroenterology; Laterality: N/A; Discharged [...] Follow up: Ki De Jesus DO [address] [facility] [address] [place] [address] Schedule an appointment as soon as possible [...] to Get Your Medications You need to supervisor opening and picking these prescriptions. We sent some of them to a specific pharmacy. Go t o these places to get your medications. [facility] - [place], [place] - [address] - lactobacillus granules [address] [place] [address] You may get the following medications from [...] 02/03/151608 Date of Service: 02/03/151608 Status: Signed Hand Compositor: Pedro Partida RN (Registered Nurse) 02/03/151602 Discharge Planning Evaluation Admitting Diagnosis Elevated temp, CKD, post liver transplant Readmission Yes-within 14 days Reason for readmission Fever, confusion, C.dif Last discharge disposition [facility] Facility Needs met at last discharge Yes Picked up discharge Rx medications Yes Started prescribed DC meds Yes Understood discharge instructions Yes Assistance available Yes Concerns for meeting needs No Caregiver after Discharge Yes Mental Status Oriented Anticipated Disposition Facility Type longterm facility Retirement Facility Other (comment) ([facility] in [place]) Disposition: [facility] [...] 02/03/15899 Date of Service: 02/02/151521 Status: Signed Hand Compositor: Jose Maria Espinal MD (Physician) Related Notes: Original Note by Jose Maria Espinal MD (Physician) filed at 02/02/15 1950 Service: Hospitalist Progress Note Pt: Cole Ernst AGE/SEX: 69 y.o. female : 1945 ROOM: [facility] History of Present Illness: " The patient is a 69 y.o. female with significant past medical history of liver transplant int he 90s on cyclosporine and imuran, chronic pain on methadone, CKD st 3, chronic home O2 of unclear etiology from 2-4 lp, Presented as a transfer from [facility] in [place] for fever of 101 and altered mental s tatus. She was discharged from [facility] on 01/09/15 for elevated troponin and [...] She was brought back in to [facility] for fever and confusion. UA and CXR [...] sulfate. Case management [facility] [place] [facility] patient in the next [...] contrast. Prior study for comparison: None FINDINGS: Grain Elevator Clerk 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 deg enerative changes of [...] low lung volumes. Electronically arpita d by hCang Gar MD on 01/28/2015 2:44 PM Xr [...] ERNST Date of : 1945 Performing Physician: iGl Martines MD ------REPORT ADDENDED------ INDICATIONS abnormal ekg [...] LA/Ao: 1.57 D-E Excursion: 2.11 cm E-F Chaffee: 0.09 m/s EPSS: 0.48 cm HR: 77.41 [...] TV A Billy: 0.66 m/s TV Dec Chaffee: 4.36 m/s2 TV Dec Time: 184.41 ms TV E Billy: 0.80 m/s TV E/A Rat io: 1.21 Neonatal Doctor: NEDRA Authenticated by: Gil Martines MD Report [...] Procedure: COLONOSCOPY; Surgeon: Juan Ramey MD; Location: [facility] ENDOSCOPY; Service: Gastroenterology; Laterality: N/A; PROBLEM [...] by Jose Maria Espinal MD at 02/01/15 9528 Author: Jose Maria Espinal MD Service: Hospitalist Author Type: Physician Filed: 02/02/15 1528 Date of Service: 02/01/151716 Status: Signed Hand Compositor: Jose Maria Espinal MD (Physician) Related Notes: Original Note by Jose Maria Espinal MD (Physician) filed at 02/02/15 1304 Service: Hospitalist Progress Note Pt: Cole Ernst AGE/SEX: 69 y.o. female : 1945 ROOM: [address] [place] [address] History of Present Illness: " The patient is a 69 y.o. female with significant past medical history of liver transplant int he 90s on cyclosporine and imuran, chronic pain on methadone, CKD st 3, chronic home O2 of unclear etiology from 2-4 lpm, Presented as a transfer from [facility] for fever of 101 and altered mental s tatus. She was discharged from [facility] on 01/09/15 for elevated troponin and [...] She was brought back in to [facility] for fever and confusion. UA and CXR [...] establishing readiness of the faci lity in [place] to accept the patient in the next [...] contrast. Prior study for comparison: None FINDINGS: Grain Elevator Clerk 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 deg enerative changes of [...] LA/Ao: 1.57 D-E Excursion: 2.11 cm E-F Chaffee: 0.09 m/s EPSS: 0.48 cm HR: 77.41 [...] TV A Billy: 0.66 m/s TV Dec Chaffee: 4.36 m/s2 TV Dec Time: 184.41 ms TV E Billy: 0.80 m/s TV E/A Rat io: 1.21 Neonatal Doctor: NEDRA Authenticated by: Gil Martines MD Report [...] Procedure: COLONOSCOPY; Surgeon: Juan Ramey MD; Location: [facility]COPY; Service: Gastroenterology; Laterality: N/A; PROBLEM [...] Currently with normal liver function tests. 3. Duhxb-he-bftvfzg liver disease, stage III. Creatinine level has [...] 01/31/152124 Date of Service: 01/31/151513 Status: Signed Hand Compositor: Jose Maria Espinal MD (Physician) Related Notes: Original Note by Jose Maria Espinal MD (Physician) filed at 01/31/15 1523 Service: Hospitalist Progress Note Pt: Cole Ernst AGE/SEX: 69 y.o. female : 1945 ROOM: [address] [place] [address] History of Present Illness: " The patient is a 69 y.o. female with significant past medical history of liver transplant int he 90s on cyclosporine and imuran, chronic pain on methadone, CKD st 3, chronic home O2 of unclear etiology from 2-4 lpm, Presented as a transfer from [facility] in [place] for fever of 101 and altered mental s tatus. She was discharged from [facility] on 01/09/15 for elevated troponin and [...] She was brought back in to [facility] for fever and confusion. UA and CXR [...] contrast. Prior study for comparison: None FINDINGS: Grain Elevator Clerk 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 deg enerative changes of [...] LA/Ao: 1.57 D-E Excursion: 2.11 cm E-F Chaffee: 0.09 m/s EPSS: 0.48 cm HR: 77.41 [...] TV A Billy: 0.66 m/s TV Dec Chaffee: 4.36 m/s2 TV Dec Time: 184.41 ms TV E Billy: 0.80 m/s TV E/A Rat io: 1.21 Neonatal Doctor: NEDRA Authenticated by: Gil Martines MD Report [...] Procedure: COLONOSCOPY; Surgeon: Juan Ramey MD; Location: [facility]COPY; Service: Gastroenterology; Laterality: N/A; PROBLEM [...] 1313 Date of Service: 01/31/151312 Status: Signed Hand Compositor: Catina Moon () Attempted visit. Pt sitting in chair sleeping. No family present. Chaplain Catina Moon onver alessandro Transaction, Provider Unknown - 01/31/2015 11:35 AM PDT Therapy Progress Note by Mahi Yanes PTA at 01/31/15 1135 Author: Mahi Yanes PTA Service: (none) Author Type: Inventory Control Assistant Filed: 01/31/15 1410 Date of Service: 01/31/151134 Status: Signed Hand Compositor: Mahi Yanes PTA (Inventory Control Assistant) 01/31/15 1135 PT Last Visit PT Received [...] PDT Case Management by Gregg Keene MS, HOUSEKEEPING AND LAUNDRY TEAM LEADER at 01/31/15 1007 Author: Gregg Keene, MS, HOUSEKEEPING AND LAUNDRY TEAM LEADER Service: (none) Author Type: Automatic Lathe Operator Filed: 01/31/15 1546 Date of Service: 01/31/15 1007 Status: Addendum Hand Compositor: Gregg Keene , HOUSEKEEPING AND LAUNDRY TEAM LEADER (Automatic Lathe Operator) Related Notes: Original Note by Gregg Yecenia MS, HOUSEKEEPING AND LAUNDRY TEAM LEADER (Automatic Lathe Operator) filed at 01/31/15 1007 Discharge planning [...] (none) Author Type: Physical Therapist Filed: 01/30/15 2097 Date of Service: 01/30/15 1705 Status: Signed Hand Compositor: Gail Vernon PT (Physical Therapist) 01/30/15 170 [...] Date of Service: 01/30/15 1414 Status: Signed Hand Compositor: Jose Maria Espinal MD (Physician) Related Notes: Original Note by Jose Maria Espinal MD (Physician) filed at 01/30/15 5323 Service: Hospitalist Progress Note Pt: Cole Ernst [...] transfer from [facility] in [place] for fever of 101 and altered mental s tatus. She was discharged from [facility] on 01/09/15 for elevated troponin and [...] She was brought back in to [facility] for fever and confusion. UA and CXR [...] contrast. Prior study for comparison: None FINDINGS: Grain Elevator Clerk 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 deg enerative changes of [...] LA/Ao: 1.57 D-E Excursion: 2.11 cm E-F Chaffee: 0.09 m/s EPSS: 0.48 cm HR: 77.41 [...] TV A Billy: 0.66 m/s TV Dec Chaffee: 4.36 m/s2 TV Dec Time: 184.41 ms TV E Billy: 0.80 m/s TV E/A Rat io: 1.21 Neonatal Doctor: NEDRA Authenticated by: Gil Martines MD Report [...] Procedure: COLONOSCOPY; Surgeon: Juan Ramey MD; Location: [facility]COPY; Service: Gastroenterology; Laterality: N/A; PROBLEM [...] Patient's live r functions remain normal. 3. Bkica-rv-fxtxybh kidney disease stage III. Creatinine level has [...] by Jose Maria Espinal MD at 01/29/15 470 Author: Jose Maria Espinal MD Service: Hospitalist Author Type: Physician Filed: 01/30/15 0957 Date of Service: 01/29/151650 Status: Signed Hand Compositor: Jose Maria Espinal MD (Physician) Related Notes: Original Note by Jose Maria Espinal MD (Physician) filed at 01/29/152024 Service: Hospitalist Progress Note Pt: Cole Ernst AGE/SEX: 69 y.o. female : 1945 ROOM: [address] [place] [address] History of Present Illness: " The patient is a 69 y.o. female with significant past medical history of liver transplant int he 90s on cyclosporine and imuran, chronic pain on methadone, CKD st 3, chronic home O2 of unclear etiology from 2-4 lpm, Presented as a transfer from [facility] in [place] for fever of 101 and altered mental s tatus. She was discharged from [facility] on 01/09/15 for elevated troponin and [...] She was brought back in to [facility] for fever and confusion. UA and CXR [...] contrast. Prior study for comparison: None FINDINGS: Grain Elevator Clerk 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 deg enerative changes of [...] LA/Ao: 1.57 D-E Excursion: 2.11 cm E-F Chaffee: 0.09 m/s EPSS: 0.48 cm HR: 77.41 [...] TV A Billy: 0.66 m/s TV Dec Chaffee: 4.36 m/s2 TV Dec Time: 184.41 ms TV E Billy: 0.80 m/s TV E/A Rat io: 1.21 Neonatal Doctor: NEDRA Authenticated by: Gil Martines MD Report [...] Procedure: COLONOSCOPY; Surgeon: Juan Ramey MD; Location: [facility] ENDOSCOPY; Service: Gastroenterology; Laterality: N/A; PROBLEM [...] Date of Service: 01/29/15 1525 Status: Signed Hand Compositor: Pedro Partida RN (Registered Nurse) 01/29/15 1521 Discharge Planning Evaluation Admitting Diagnosis Intestinal infection C.dif. Readmission Yes-within 14 days Reason for readmission Intestinal infection C.dif Last discharge disposition Retirement Facility Needs met at last discharge Yes Picked up discharge Rx medications Not applicable Followed up with primary or specialty provider Yes Understood discharge instructions Yes Assistance available Yes Living Arrangements Alone Support Systems Friends/neighbors Type of Residence Private residence House type Apartment Independent with ADL's Yes Independent with Mobility Yes Caregiver after Discharge Yes Mental Status Oriented Anticipated Disposition Facility Type longterm facility Retirement Facility Other (comment) ([facility] in [place]) Met with: patient and discussed discharge planning, Pt is a 69 y.o., female who was discharged from [facility] [address] [facility] [...] 01/29/1533 Date of Service: 01/29/15854 Status: Signed Hand Compositor: Barbara Edmond PT (Physical Therapist) 01/29/15 08 [...] to SNF after current hospital stay. Just BRANNER MACHINE TENDER Júnior ADL's and Júnior mobility using 4ww for short room distances, had been using manual w/c in hallway at SNF. Reports a few falls at facility ov er last week, otherwise denies falls over last 6mos. Was getting therapies at facility. Prior Function Level of [place] Modified independent with ADLs;Modified independent with functional [...] Barriers to Discharge Physical Deficits Impacting Functional [place];Self-care Deficit s Impacting Functional [place];Equipment Needs (see comment);Pain Recommendation Comments Needs return [...] Barriers to Discharge Physical Deficits Impacting Functional [place];Self-care Deficit s Impacting Functional [place];Equipment Needs (see comment);Pain Recommendation Comments Needs return [...] 01/29/15831 Date of Service: 01/29/15830 Status: Signed Hand Compositor: Malick Ramos RN (Registered Nurse) Infection Prevention Note: Patient stool is positive for C. Diff. Contact Enteric Precautions are required until furt her notice. Thank you. Malick Ramos RN, BA, Special Warfare Operator onver alessandro Transaction, Provider Unknown - 01/28/2015 3:23 PM PDT Progress Notes by Jimena Duarte RPH at 01/28/151522 Author: Jimena Duarte RPH Service: (none) Author Type: Pharmacist Filed: 01/28/15 152 Date of Service: 01/28/151522 Status: Signed Hand Compositor: Jimena Duarte RPH (Pharmacist) Zosyn Extended Infusion Initial Consult-Per Dr. Jacob Ernst 69 y.o. female CrCl cannot be calculated (Unknown ideal weight.). NEUTROPHILS ABS Date Value Ref Range Status 01/18/2015 3.26 1.90 - 7.40 K/uL Final Comment: Testing performed at [facility], [address] [place] [address] CREATININE Date Value Ref Range Status 01/19/2015 0.96 0.50 - 1.00 mg/dL Final Comment: Testing performed at [facility], [address] [place] [address] Zosyn extended Infusion loading and maintenance dose guidelines Loading Dose 4.5 g IV Over 30 minutes CrCl >20 ml/min 3.375 g IV Q 8 hours Over 4 hours CrCl 10-20 ml/min 3.375 g IV Q 12 hours Over 4 hours CrCl <10, HD, PD Follow [facility] Dosage Adjustments in Renal Dysfunction Protocol [...] 01/28/151515 Date of Service: 01/28/151515 Status: Signed Hand Compositor: Jimena Duarte RPH (Pharmacist) Renal Dosing Monitoring: [...] | | | | | [place] [address] | | | | + + + + + + | RED CELL | 2.72 (L)Comment: Testing | 3.70 - 5.10 | EXTERNAL | | | COUNT | performed at [facility], [address] | M/uL | LAB | | | | [address], | | | | | | [place] [address] | | | | + + + + + + | Hgb | 9.6 (L)Comment: Testing | 11.3 - 15.5 | EXTERNAL | | | | performed at [facility], [address] | g/dL | LAB | | | | [address], | | | | | | [place] [address] | | | | + + + + + + | Hematocrit, | 28.8 (L)Comment: Testing | 34.0 - 46.0 % | EXTERNAL | | | POC | performed at [facility], [address] | | LAB | | | | [address], | | | | | | [place] [address] | | | | + + + + + + | MCV | 106.0 (H)Comment: | 80.0 - 100.0 fl | EXTERNAL | | | | Testing performed at | | LAB | | | | [facility], [address] | | | | | | [place] | | | | | | [address] | | | | + + + + + + | MCH | 35.2 (H)Comment: Testing | 27.0 - 34.0 pg | EXTERNAL | | | | performed at [facility], [address] | | LAB | | | | [address], | | | | | | [place] [address] | | | | + + + + + + | MCHC | 33.2Comment: Testing | 32.0 - 35.5 | EXTERNAL | | | | performed at [facility], [address] | g/dL | LAB | | | | [address], | | | | | | [place] [address] | | | | + + + + + + | RDW-CV | 53.4 (H)Comment: Testing | 37 - 53 fl | EXTERNAL | | | | performed at [facility], [address] | | LAB | | | | [address], | | | | | | [place] [address] | | | | + + + + + + | Platelet | 216Comment: Testing | 150 - 400 K/uL | EXTERNAL | | | Count | performed at [facility], [address] | | LAB | | | Plasma | [address], | | | | | | [place] [address] | | | | + + + + + + | MPV | 10.5Comment: Testing | fl | EXTERNAL | | | | performed at [facility], [address] | | LAB | | | | [address], | | | | | | [place], [place] [address] | | | | + + + + + + | Differentia | MANUALComment: Testing | | EXTERNAL | | | l Type | performed at [facility], [address] | | LAB | | | | [address], | | | | | | [place], [place] [address] | | | | + + + + + + | Segmented | 35Comment: Testing | % | EXTERNAL | | | Neutrophils | performed at [facility], [address] | | LAB | | | Manual | [address], | | | | | | [place] [address] | | | | + + + + + + | % Bands | 1Comment: Testing | % | EXTERNAL | | | | performed at [facility], [address] | | LAB | | | | [address], | | | | | | [place] [address] | | | | + + + + + + | Lymphocytes | 44Comment: Testing | % | EXTERNAL | | | Manual | performed at [facility], [address] | | LAB | | | | [address], | | | | | | [place] [address] | | | | + + + + + + | Monocytes | 12Comment: Testing | % | EXTERNAL | | | Manual | performed at [facility], [address] | | LAB | | | | [address], | | | | | | [place] [address] | | | | + + + + + + | Eosinophils | 8Comment: Testing | % | EXTERNAL | | | Manual | performed at [facility], [address] | | LAB | | | | [address], | | | | | | [place] [address] | | | | + + + + + + | Absolute | 3.08Comment: Testing | 1.90 - 7.40 | EXTERNAL | | | Neutrophils | performed at [facility], [address] | K/uL | LAB | | | | [address], | | | | | | [place] [address] | | | | + + + + + + | Bands | 0.09Comment: Testing | 0.00 - 0.20 | EXTERNAL | | | Manual | performed at [facility], [address] | K/uL | LAB | | | | [address], | | | | | | [place] [address] | | | | + + + + + + | Absolute | 3.88Comment: Testing | 1.00 - 3.90 | EXTERNAL | | | Lymphocytes | performed at [facility], [address] | K/uL | LAB | | | | [address], | | | | | | [place] [address] | | | | + + + + + + | Absolute | 1.06 (H)Comment: Testing | 0.00 - 0.80 | EXTERNAL | | | Monocytes | performed at [facility], [address] | K/uL | LAB | | | | [address], | | | | | | [place] [address] | | | | + + + + + + | Absolute | 0.70 (H)Comment: Testing | 0.00 - 0.50 | EXTERNAL | | | Eosinophils | performed at [facility], [address] | K/uL | LAB | | | | [address], | | | | | | [place] [address] | | | | + + + + + + | RBC | NORMAL PLT MORPHComment: | | EXTERNAL | | | Morphology | NORMAL RBC MORPHTesting | | LAB | | | | performed at [facility], [address] | | | | | | [address], | | | | | | [place] [address] | | | | + + + [...] EXTERNAL | | | | performed at [facility], [address] | | LAB | | | | [address], | | | | | | [place] [address] | | | | + + + [...] EXTERNAL | | | | performed at [facility], [address] | | LAB | | | | [address], | | | | | | [place] [address] | | | | + + + [...] | | | | | [place] [address] | | | | + + + + + + | K | 4.0Comment: Testing | 3.5 - 4.9 | EXTERNAL | | | | performed at [facility], [address] | mmol/L | LAB | | | | [address], | | | | | | [place] [address] | | | | + + + + + + | Cl | 102Comment: Testing | 99 - 109 mmol/L | EXTERNAL | | | | performed at [facility], [address] | | LAB | | | | [address], | | | | | | [place] [address] | | | | + + + + + + | CO2 | 33 (H)Comment: Testing | 23 - 32 mmol/L | EXTERNAL | | | | performed at [facility], [address] | | LAB | | | | [address], | | | | | | [place] [address] | | | | + + + + + + | Anion Gap | 5Comment: Testing | 5 - 20 mmol/L | EXTERNAL | | | | performed at [facility], [address] | | LAB | | | | [address], | | | | | | [place] [address] | | | | + + + + + + | Glucose, | 105 (H)Comment: Testing | 65 - 99 mg/dL | EXTERNAL | | | Fasting | performed at [facility], [address] | | LAB | | | | [address], | | | | | | [place] [address] | | | | + + + + + + | BUN | 9Comment: Testing | 8 - 25 mg/dL | EXTERNAL | | | | performed at [facility], [address] | | LAB | | | | [address], | | | | | | [place] [address] | | | | + + + + + + | Creatinine | 0.82Comment: Testing | 0.50 - 1.00 | EXTERNAL | | | | performed at [facility], [address] | mg/dL | LAB | | | | [address], | | | | | | [place] [address] | | | | + + + + + + | BUN/Creatin | 11Comment: Testing | | EXTERNAL | | | ine Ratio | performed at [facility], [address] | | LAB | | | | [address], | | | | | | [place] [address] | | | | + + + + + + | Calcium | 8.5Comment: Testing | 8.5 - 10.5 | EXTERNAL | | | | performed at [facility], [address] | mg/dL | LAB | | | | [address], | | | | | | [place] [address] | | | | + + + + + + | Protein, | 6.3Comment: Testing | 6.3 - 8.2 g/dL | EXTERNAL | | | Total | performed at [facility], [address] | | LAB | | | | [address], | | | | | | [place] [address] | | | | + + + + + + | Albumin | 2.8 (L)Comment: Testing | 3.3 - 4.8 g/dL | EXTERNAL | | | | performed at [facility], [address] | | LAB | | | | [address], | | | | | | [place] [address] | | | | + + + + + + | Globulin | 3.5Comment: Testing | 1.3 - 4.9 g/dL | EXTERNAL | | | | performed at [facility], [address] | | LAB | | | | [address], | | | | | | [place] [address] | | | | + + + + + + | A/G Ratio | 0.8 (L)Comment: Testing | 1.0 - 2.4 | EXTERNAL | | | | performed at [facility], [address] | | LAB | | | | [address], | | | | | | [place] [address] | | | | + + + + + + | Bilirubin | 0.5Comment: Testing | 0.1 - 1.5 mg/dL | EXTERNAL | | | Total | performed at [facility], [address] | | LAB | | | | [address], | | | | | | [place] [address] | | | | + + + + + + | ALP, | 102Comment: Testing | 35 - 115 U/L | EXTERNAL | | | External | performed at [facility], [address] | | LAB | | | | [address], | | | | | | [place] [address] | | | | + + + + + + | AST | 53 (H)Comment: Testing | 10 - 45 U/L | EXTERNAL | | | | performed at [facility], [address] | | LAB | | | | [address], | | | | | | [place] [address] | | | | + + + + + + | ALT | 21Comment: Testing | 10 - 65 U/L | EXTERNAL | | | | performed at [facility], [address] | | LAB | | | | [address], | | | | | | [place] [address] | | | | + + + [...] | | | | | | at [facility], [address] | | | | | | [address] [facility], | | | | | | [place] [address] | | | | + + + [...] EXTERNAL | | | | performed at [facility];[address] | mmol/L | LAB | | | | [address];[place], [place] | | | | | | [address] | | | | + + + [...] EXTERNAL | | | | performed at [facility];[address] | | LAB | | | | [address];[place] | | | | | | [address] | | | | + + + [...] EXTERNAL | | | | performed at [facility], [address] | [address] | LAB | | | | [address], | | | | | | [place] [address] | | | | + + + + + + | RED CELL | 2.78 (L)Comment: Testing | 3.70 - 5.10 | EXTERNAL | | | COUNT | performed at [facility], [address] | [address] | LAB | | | | [address], | | | | | | [place] [address] | | | | + + + + + + | Hgb | 9.7 (L)Comment: Testing | 11.3 - 15.5 | EXTERNAL | | | | performed at [facility], [address] | g/dL | LAB | | | | [address], | | | | | | [place] [address] | | | | + + + + + + | Hematocrit, | 29.6 (L)Comment: Testing | 34.0 - 46.0 % | EXTERNAL | | | POC | performed at [facility], [address] | | LAB | | | | [address], | | | | | | [place] [address] | | | | + + + + + + | MCV | 106.3 (H)Comment: | 80.0 - 100.0 fl | EXTERNAL | | | | Testing performed at | | LAB | | | | [facility], [address] [facility] | | | | | | [place] | | | | | | [address] | | | | + + + + + + | MCH | 34.8 (H)Comment: Testing | 27.0 - 34.0 pg | EXTERNAL | | | | performed at [facility], [address] | | LAB | | | | [address], | | | | | | [place] [address] | | | | + + + + + + | MCHC | 32.8Comment: Testing | 32.0 - 35.5 | EXTERNAL | | | | performed at [facility], [address] | g/dL | LAB | | | | [address], | | | | | | [place] [address] | | | | + + + + + + | RDW-CV | 53.8 (H)Comment: Testing | 37 - 53 fl | EXTERNAL | | | | performed at [facility], [address] | | LAB | | | | [address], | | | | | | [place] [address] | | | | + + + [...] | | | | | [place] [address] | | | | + + + + + + | Differentia | MANUALComment: Testing | | EXTERNAL | | | l Type | performed at [facility], [address] | | LAB | | | | [address], | | | | | | [place] [address] | | | | + + + + + + | Segmented | 45Comment: Testing | % | EXTERNAL | | | Neutrophils | performed at [facility], [address] | | LAB | | | Manual | [address], | | | | | | [place] [address] | | | | + + + + + + | % Bands | 1Comment: Testing | % | EXTERNAL | | | | performed at [facility], [address] | | LAB | | | | [address], | | | | | | [place] [address] | | | | + + + + + + | Lymphocytes | 35Comment: Testing | % | EXTERNAL | | | Manual | performed at [facility], [address] | | LAB | | | | [address], | | | | | | [place], [place] [address] | | | | + + + + + + | Monocytes | 11Comment: Testing | % | EXTERNAL | | | Manual | performed at [facility], [address] | | LAB | | | | [address], | | | | | | [place] [address] | | | | + + + + + + | Eosinophils | 8Comment: Testing | % | EXTERNAL | | | Manual | performed at [facility], [address] | | LAB | | | | [address], | | | | | | [place] [address] | | | | + + + + + + | Absolute | 3.85Comment: Testing | 1.90 - 7.40 | EXTERNAL | | | Neutrophils | performed at [facility], [address] | K/[address] | LAB | | | | [address], | | | | | | [place] [address] | | | | + + + + + + | Bands | 0.09Comment: Testing | 0.00 - 0.20 | EXTERNAL | | | Manual | performed at [facility], [address] | K/uL | LAB | | | | [address], | | | | | | [place] [address] | | | | + + + + + + | Absolute | 3.01Comment: Testing | 1.00 - 3.90 | EXTERNAL | | | Lymphocytes | performed at [facility], [address] | K/[address] | LAB | | | | [address], | | | | | | [place] [address] | | | | + + + + + + | Absolute | 0.95 (H)Comment: Testing | 0.00 - 0.80 | EXTERNAL | | | Monocytes | performed at [facility], [address] | [address] | LAB | | | | [address], | | | | | | [place] [address] | | | | + + + + + + | Absolute | 0.69 (H)Comment: Testing | 0.00 - 0.50 | EXTERNAL | | | Eosinophils | performed at [facility], [address] | [address] | LAB | | | | [address], | | | | | | [place] [address] | | | | + + + + + + | RBC | 2+Comment: MACRONORMAL | | EXTERNAL | | | Morphology | PLT MORPHTesting | | LAB | | | | performed at [facility], [address] | | | | | | [address], | | | | | | [place] [address] | | | | | | | [...] | | | | | [place] [address] | | | | + + + [...] EXTERNAL | | | | performed at [facility], [address] | | LAB | | | | [address], | | | | | | [place] [address] | | | | + + + [...] | | | | | [place] [address] | | | | + + + + + + | K | 3.2 (L)Comment: Testing | 3.5 - 4.9 | EXTERNAL | | | | performed at [facility], [address] | mmol/L | LAB | | | | [address], | | | | | | [place] [address] | | | | + + + + + + | Cl | 103Comment: Testing | 99 - 109 mmol/L | EXTERNAL | | | | performed at [facility], [address] | | LATA | | | | [address], | | | | | | [place] [address] | | | | + + + + + + | CO2 | 31Comment: Testing | 23 - 32 mmol/L | EXTERNAL | | | | performed at [facility], [address] | | LAB | | | | [address], | | | | | | [place] [address] | | | | + + + + + + | Anion Gap | 7Comment: Testing | 5 - 20 mmol/L | EXTERNAL | | | | performed at [facility], [address] | | LAB | | | | [address], | | | | | | [place] [address] | | | | + + + + + + | Glucose, | 104 (H)Comment: Testing | 65 - 99 mg/dL | EXTERNAL | | | Fasting | performed at [facility], [address] | | LAB | | | | [address], | | | | | | [place] [address] | | | | + + + + + + | BUN | 10Comment: Testing | 8 - 25 mg/dL | EXTERNAL | | | | performed at [facility], [address] | | LAB | | | | [address], | | | | | | [place] [address] | | | | + + + + + + | Creatinine | 0.83Comment: Testing | 0.50 - 1.00 | EXTERNAL | | | | performed at [facility], [address] | mg/dL | LAB | | | | [address], | | | | | | [place] [address] | | | | + + + + + + | BUN/Creatin | 12Comment: Testing | | EXTERNAL | | | ine Ratio | performed at [facility], [address] | | LAB | | | | [address], | | | | | | [place] [address] | | | | + + + + + + | Calcium | 8.2 (L)Comment: Testing | 8.5 - 10.5 | EXTERNAL | | | | performed at [facility], [address] | mg/dL | LAB | | | | [address], | | | | | | [place] [address] | | | | + + + + + + | Protein, | 6.2 (L)Comment: Testing | 6.3 - 8.2 g/dL | EXTERNAL | | | Total | performed at [facility], [address] | | LAB | | | | [address], | | | | | | [place] [address] | | | | + + + + + + | Albumin | 2.7 (L)Comment: Testing | 3.3 - 4.8 g/dL | EXTERNAL | | | | performed at [facility], [address] | | LAB | | | | [address], | | | | | | [place] [address] | | | | + + + + + + | Globulin | 3.5Comment: Testing | 1.3 - 4.9 g/dL | EXTERNAL | | | | performed at [facility], [address] | | LAB | | | | [address], | | | | | | [place] [address] | | | | + + + + + + | A/G Ratio | 0.8 (L)Comment: Testing | 1.0 - 2.4 | EXTERNAL | | | | performed at [facility], [address] | | LAB | | | | [address], | | | | | | [place] [address] | | | | + + + + + + | Bilirubin | 0.5Comment: Testing | 0.1 - 1.5 mg/dL | EXTERNAL | | | Total | performed at [facility], [address] | | LAB | | | | [address], | | | | | | [place] [address] | | | | + + + + + + | ALP, | 98Comment: Testing | 35 - 115 U/L | EXTERNAL | | | External | performed at [facility], [address] | | LAB | | | | [address], | | | | | | [place] [address] | | | | + + + + + + | AST | 35Comment: Testing | 10 - 45 U/L | EXTERNAL | | | | performed at [facility], [address] | | LAB | | | | [address], | | | | | | [place] [address] | | | | + + + + + + | ALT | 15Comment: Testing | 10 - 65 U/L | EXTERNAL | | | | performed at [facility], [address] | | LAB | | | | [address], | | | | | | [place] [address] | | | | + + + [...] [address], | | | | | | [place] [address] | | | | + + + [...] EXTERNAL | | | | performed at [facility], [address] | | LAB | | | | [address], | | | | | | [place] [address] | | | | + + + [...] | | | B-12 | performed at [facility], [address] | pg/mL | LAB | | | | [address], | | | | | | [place] [address] | | | | + + + [...] EXTERNAL | | | | performed at [facility], [address] | K/uL | LAB | | | | [address], | | | | | | [place] [address] | | | | + + + + + + | RED CELL | 2.72 (L)Comment: Testing | 3.70 - 5.10 | EXTERNAL | | | COUNT | performed at [facility], [address] | [address] | LAB | | | | [address], | | | | | | [place] [address] | | | | + + + + + + | Hgb | 9.4 (L)Comment: Testing | 11.3 - 15.5 | EXTERNAL | | | | performed at [facility], [address] | g/dL | LAB | | | | [address], | | | | | | [place] [address] | | | | + + + + + + | Hematocrit, | 29.1 (L)Comment: Testing | 34.0 - 46.0 % | EXTERNAL | | | POC | performed at [facility], [address] | | LAB | | | | [address], | | | | | | [place] [address] | | | | + + + + + + | MCV | 107.3 (H)Comment: | 80.0 - 100.0 fl | EXTERNAL | | | | Testing performed at | | LAB | | | | [facility], [address] [facility] | | | | | | [place] | | | | | | [address] | | | | + + + + + + | MCH | 34.6 (H)Comment: Testing | 27.0 - 34.0 pg | EXTERNAL | | | | performed at [facility], [address] | | LAB | | | | [address], | | | | | | [place] [address] | | | | + + + + + + | MCHC | 32.2Comment: Testing | 32.0 - 35.5 | EXTERNAL | | | | performed at [facility], [address] | g/dL | LAB | | | | [address], | | | | | | [place] [address] | | | | + + + [...] | | | | | [place] [address] | | | | + + + + + + | MPV | 10.9Comment: Testing | fl | EXTERNAL | | | | performed at [facility], [address] | | LAB | | | | [address], | | | | | | [place] [address] | | | | + + + + + + | Differentia | MANUALComment: Testing | | EXTERNAL | | | l Type | performed at [facility], [address] | | LAB | | | | [address], | | | | | | [place], [place] [address] | | | | + + + + + + | Segmented | 45Comment: Testing | % | EXTERNAL | | | Neutrophils | performed at [facility], [address] | | LAB | | | Manual | [address], | | | | | | [place], [place] [address] | | | | + + + + + + | % Bands | 1Comment: Testing | % | EXTERNAL | | | | performed at [facility], [address] | | LAB | | | | [address], | | | | | | [place], [place] [address] | | | | + + + + + + | Lymphocytes | 34Comment: Testing | % | EXTERNAL | | | Manual | performed at [facility], [address] | | LAB | | | | [address], | | | | | | [place] [address] | | | | + + + + + + | Monocytes | 11Comment: Testing | % | EXTERNAL | | | Manual | performed at [facility], [address] | | LAB | | | | [address], | | | | | | [place] [address] | | | | + + + + + + | Eosinophils | 9Comment: Testing | % | EXTERNAL | | | Manual | performed at [facility], [address] | | LAB | | | | [address], | | | | | | [place] [address] | | | | + + + + + + | Absolute | 3.77Comment: Testing | 1.90 - 7.40 | EXTERNAL | | | Neutrophils | performed at [facility], [address] | [address] | LAB | | | | [address], | | | | | | [place] [address] | | | | + + + + + + | Bands | 0.08Comment: Testing | 0.00 - 0.20 | EXTERNAL | | | Manual | performed at [facility], [address] | [address] | LAB | | | | [address], | | | | | | [place] [address] | | | | + + + + + + | Absolute | 2.84Comment: Testing | 1.00 - 3.90 | EXTERNAL | | | Lymphocytes | performed at [facility], [address] | [address] | LAB | | | | [address], | | | | | | [place] [address] | | | | + + + + + + | Absolute | 0.92 (H)Comment: Testing | 0.00 - 0.80 | EXTERNAL | | | Monocytes | performed at [facility], [address] | [address] | LAB | | | | [address], | | | | | | [place] [address] | | | | + + + + + + | Absolute | 0.75 (H)Comment: Testing | 0.00 - 0.50 | EXTERNAL | | | Eosinophils | performed at [facility], [address] | [address] | LAB | | | | [address], | | | | | | [place] [address] | | | | + + + + + + | RBC | NORMAL PLT MORPHComment: | | EXTERNAL | | | Morphology | NORMAL RBC MORPHTesting | | LAB | | | | performed at [facility], 1931 | | | | | | [address], | | | | | | [place] [address] | | | | + + + [...] EXTERNAL | | | | performed at [facility], [address] | | LAB | | | | [address], | | | | | | [place] [address] | | | | + + + [...] | | | | | [place] [address] | | | | + + + [...] | | | | | [place] [address] | | | | + + + + + + | K | 3.8Comment: Testing | 3.5 - 4.9 | EXTERNAL | | | | performed at [facility], [address] | mmol/L | LAB | | | | [address], | | | | | | [place] [address] | | | | + + + + + + | Cl | 111 (H)Comment: Testing | 99 - 109 mmol/L | EXTERNAL | | | | performed at [facility], [address] | | LAB | | | | [address], | | | | | | [place] [address] | | | | + + + + + + | CO2 | 25Comment: Testing | 23 - 32 mmol/L | EXTERNAL | | | | performed at [facility], [address] | | LAB | | | | [address], | | | | | | [place] [address] | | | | + + + + + + | Anion Gap | 5Comment: Testing | 5 - 20 mmol/L | EXTERNAL | | | | performed at [facility], [address] | | LAB | | | | [address], | | | | | | [place] [address] | | | | + + + + + + | Glucose, | 112 (H)Comment: Testing | 65 - 99 mg/dL | EXTERNAL | | | Fasting | performed at [facility], [address] | | LAB | | | | [address], | | | | | | [place] [address] | | | | + + + + + + | BUN | 13Comment: Testing | 8 - 25 mg/dL | EXTERNAL | | | | performed at [facility], [address] | | LAB | | | | [address], | | | | | | [place] [address] | | | | + + + + + + | Creatinine | 0.74Comment: Testing | 0.50 - 1.00 | EXTERNAL | | | | performed at [facility], [address] | mg/dL | LAB | | | | [address], | | | | | | [place] [address] | | | | + + + + + + | BUN/Creatin | 18Comment: Testing | | EXTERNAL | | | ine Ratio | performed at [facility], [address] | | LAB | | | | [address], | | | | | | [place] [address] | | | | + + + + + + | Calcium | 8.0 (L)Comment: Testing | 8.5 - 10.5 | EXTERNAL | | | | performed at [facility], [address] | mg/dL | LAB | | | | [address], | | | | | | [place] [address] | | | | + + + + + + | Protein, | 5.9 (L)Comment: Testing | 6.3 - 8.2 g/dL | EXTERNAL | | | Total | performed at [facility], [address] | | LAB | | | | [address], | | | | | | [place] [address] | | | | + + + + + + | Albumin | 2.6 (L)Comment: Testing | 3.3 - 4.8 g/dL | EXTERNAL | | | | performed at [facility], [address] | | LAB | | | | [address], | | | | | | [place] [address] | | | | + + + + + + | Globulin | 3.3Comment: Testing | 1.3 - 4.9 g/dL | EXTERNAL | | | | performed at [facility], [address] | | LAB | | | | [address], | | | | | | [place] [address] | | | | + + + + + + | A/G Ratio | 0.8 (L)Comment: Testing | 1.0 - 2.4 | EXTERNAL | | | | performed at [facility], [address] | | LAB | | | | [address], | | | | | | [place] [address] | | | | + + + + + + | Bilirubin | 0.4Comment: Testing | 0.1 - 1.5 mg/dL | EXTERNAL | | | Total | performed at [facility], [address] | | LAB | | | | [address], | | | | | | [place] [address] | | | | + + + + + + | ALP, | 93Comment: Testing | 35 - 115 U/L | EXTERNAL | | | External | performed at [facility], [address] | | LAB | | | | [address], | | | | | | [place] [address] | | | | + + + + + + | AST | 23Comment: Testing | 10 - 45 U/L | EXTERNAL | | | | performed at [facility], [address] | | LAB | | | | [address], | | | | | | [place] [address] | | | | + + + + + + | ALT | 14Comment: Testing | 10 - 65 U/L | EXTERNAL | | | | performed at [facility], [address] | | LAB | | | | [address], | | | | | | [place] [address] | | | | + + + [...] | | | | | [place] [address] | | | | + + + [...] EXTERNAL | | | | performed at [facility], [address] | K/uL | LAB | | | | [address], | | | | | | [place] [address] | | | | + + + + + + | RED CELL | 2.78 (L)Comment: Testing | 3.70 - 5.10 | EXTERNAL | | | COUNT | performed at [facility], [address] | [address] | LAB | | | | [address], | | | | | | [place] [address] | | | | + + + + + + | Hgb | 9.7 (L)Comment: Testing | 11.3 - 15.5 | EXTERNAL | | | | performed at [facility], [address] | g/dL | LAB | | | | [address], | | | | | | [place] [address] | | | | + + + + + + | Hematocrit, | 29.9 (L)Comment: Testing | 34.0 - 46.0 % | EXTERNAL | | | POC | performed at [facility], [address] | | LAB | | | | [address], | | | | | | [place] [address] | | | | + + + + + + | MCV | 107.5 (H)Comment: | 80.0 - 100.0 fl | EXTERNAL | | | | Testing performed at | | LAB | | | | [facility], [address] [facility] | | | | | | [place] | | | | | | [address] | | | | + + + + + + | MCH | 34.9 (H)Comment: Testing | 27.0 - 34.0 pg | EXTERNAL | | | | performed at [facility], [address] | | LAB | | | | [address], | | | | | | [place] [address] | | | | + + + + + + | MCHC | 32.5Comment: Testing | 32.0 - 35.5 | EXTERNAL | | | | performed at [facility], [address] | g/dL | LAB | | | | [address], | | | | | | [place] [address] | | | | + + + + + + | RDW-CV | 57.3 (H)Comment: Testing | 37 - 53 fl | EXTERNAL | | | | performed at [facility], [address] | | LAB | | | | [address], | | | | | | [place] [address] | | | | + + + + + + | Platelet | 162Comment: Testing | 150 - 400 K/uL | EXTERNAL | | | Count | performed at [facility], [address] | | LAB | | | Plasma | [address], | | | | | | [place] [address] | | | | + + + + + + | MPV | 11.6Comment: Testing | fl | EXTERNAL | | | | performed at [facility], [address] | | LAB | | | | [address], | | | | | | [place], [place] [address] | | | | + + + + + + | Differentia | MANUALComment: Testing | | EXTERNAL | | | l Type | performed at [facility], [address] | | LAB | | | | [address], | | | | | | [place], [place] [address] | | | | + + + + + + | Segmented | 31Comment: Testing | % | EXTERNAL | | | Neutrophils | performed at [facility], [address] | | LAB | | | Manual | [address], | | | | | | [place], [place] [address] | | | | + + + + + + | Lymphocytes | 52Comment: Testing | % | EXTERNAL | | | Manual | performed at [facility], [address] | | LAB | | | | [address], | | | | | | [place] [address] | | | | + + + + + + | Monocytes | 11Comment: Testing | % | EXTERNAL | | | Manual | performed at [facility], [address] | | LAB | | | | [address], | | | | | | [place] [address] | | | | + + + + + + | Eosinophils | 6Comment: Testing | % | EXTERNAL | | | Manual | performed at [facility], [address] | | LAB | | | | [address], | | | | | | [place] [address] | | | | + + + + + + | Absolute | 3.19Comment: Testing | 1.90 - 7.40 | EXTERNAL | | | Neutrophils | performed at [facility], [address] | K/uL | LAB | | | | [address], | | | | | | [place] [address] | | | | + + + + + + | Absolute | 5.36 (H)Comment: Testing | 1.00 - 3.90 | EXTERNAL | | | Lymphocytes | performed at [facility], [address] | K/[address] | LAB | | | | [address], | | | | | | [place] [address] | | | | + + + + + + | Absolute | 1.13 (H)Comment: Testing | 0.00 - 0.80 | EXTERNAL | | | Monocytes | performed at [facility], [address] | K/[address]L | LAB | | | | [address], | | | | | | [place] [address] | | | | + + + + + + | Absolute | 0.62 (H)Comment: Testing | 0.00 - 0.50 | EXTERNAL | | | Eosinophils | performed at [facility], [address] | K/[address] | LAB | | | | [address], | | | | | | [place] [address] | | | | + + + + + + | RBC | 2+Comment: MACRONORMAL | | EXTERNAL | | | Morphology | PLT MORPHTesting | | LAB | | | | performed at [facility], [address] | | | | | | [address], | | | | | | [place] [address] | | | | | | | [...] EXTERNAL | | | | performed at [facility], [address] | | LAB | | | | [address], | | | | | | [place] [address] | | | | + + + [...] EXTERNAL | | | | performed at [facility], [address] | | LAB | | | | [address], | | | | | | [place] [address] | | | | + + + [...] | | | | | [place] [address] | | | | + + + + + + | K | 4.2Comment: Testing | 3.5 - 4.9 | EXTERNAL | | | | performed at [facility], [address] | mmol/L | LAB | | | | [address], | | | | | | [place] [address] | | | | + + + + + + | Cl | 112 (H)Comment: Testing | 99 - 109 mmol/L | EXTERNAL | | | | performed at [facility], [address] | | LAB | | | | [address], | | | | | | [place] [address] | | | | + + + + + + | CO2 | 27Comment: Testing | 23 - 32 mmol/L | EXTERNAL | | | | performed at [facility], [address] | | LAB | | | | [address], | | | | | | [place] [address] | | | | + + + + + + | Anion Gap | 4 (L)Comment: Testing | 5 - 20 mmol/L | EXTERNAL | | | | performed at [facility], [address] | | LAB | | | | [address], | | | | | | [place] [address] | | | | + + + + + + | Glucose, | 94Comment: Testing | 65 - 99 mg/dL | EXTERNAL | | | Fasting | performed at [facility], [address] | | LAB | | | | [address], | | | | | | [place] [address] | | | | + + + + + + | BUN | 19Comment: Testing | 8 - 25 mg/dL | EXTERNAL | | | | performed at [facility], [address] | | LAB | | | | [address], | | | | | | [place] [address] | | | | + + + + + + | Creatinine | 1.01 (H)Comment: Testing | 0.50 - 1.00 | EXTERNAL | | | | performed at [facility], [address] | mg/dL | LAB | | | | [address], | | | | | | [place] [address] | | | | + + + + + + | BUN/Creatin | 19Comment: Testing | | EXTERNAL | | | ine Ratio | performed at [facility], [address] | | LAB | | | | [address], | | | | | | [place] [address] | | | | + + + + + + | Calcium | 8.1 (L)Comment: Testing | 8.5 - 10.5 | EXTERNAL | | | | performed at [facility], [address] | mg/dL | LAB | | | | [address], | | | | | | [place] [address] | | | | + + + + + + | Protein, | 5.9 (L)Comment: Testing | 6.3 - 8.2 g/dL | EXTERNAL | | | Total | performed at [facility], [address] | | LAB | | | | [address], | | | | | | [place] [address] | | | | + + + + + + | Albumin | 2.5 (L)Comment: Testing | 3.3 - 4.8 g/dL | EXTERNAL | | | | performed at [facility], [address] | | LAB | | | | [address], | | | | | | [place] [address] | | | | + + + + + + | Globulin | 3.4Comment: Testing | 1.3 - 4.9 g/dL | EXTERNAL | | | | performed at [facility], [address] | | LAB | | | | [address], | | | | | | [place] [address] | | | | + + + + + + | A/G Ratio | 0.7 (L)Comment: Testing | 1.0 - 2.4 | EXTERNAL | | | | performed at [facility], [address] | | LAB | | | | [address], | | | | | | [place] [address] | | | | + + + + + + | Bilirubin | 0.3Comment: Testing | 0.1 - 1.5 mg/dL | EXTERNAL | | | Total | performed at [facility], [address] | | LAB | | | | [address], | | | | | | [place] [address] | | | | + + + + + + | ALP, | 98Comment: Testing | 35 - 115 U/L | EXTERNAL | | | External | performed at [facility], [address] | | LAB | | | | [address], | | | | | | [place] [address] | | | | + + + + + + | AST | 24Comment: Testing | 10 - 45 U/L | EXTERNAL | | | | performed at [facility], [address] | | LAB | | | | [address], | | | | | | [place] [address] | | | | + + + + + + | ALT | 14Comment: Testing | 10 - 65 U/L | EXTERNAL | | | | performed at [facility], [address] | | LAB | | | | [facility], | | | | | | [place] [address] | | | | + + + [...] W | | | | | | [facility] | | | | | | [place] [address] | | | | + + + [...] [place] | | | | | | [address] | | | | + + +---- + + + | RED CELL | 2.93 (L)Comment: Testing | 3.7 0 - 5.10 | EXTERNAL | | | COUNT | performed at [facility], [address] | M/u L | LAB | | | | [address], | | | | | | [place] [address] | | | | + + +---- + + + | Hgb | 10.2 (L)Comment: Testing | 11. 3 - 15.5 | EXTERNAL | | | | performed at [facility], [address] | g/d L | LAB | | | | [address], | | | | | | [place] [address] | | | | + + +---- + + + | Hematocrit, | 31.6 (L)Comment: Testing | 34. 0 - 46.0 % | EXTERNAL | | | POC | performed at [facility], [address] | | LAB | | | | [address], | | | | | | [place] [address] | | | | + + +---- + + + | MCV | 107.8 (H)Comment: | 80. 0 - 100.0 fl | EXTERNAL | | | | Testing performed at | | LAB | | | | [facility], [address] | | | | | | [place] | | | | | | [address] | | | | + + +---- + + + | MCH | 34.8 (H)Comment: Testing | 27. 0 - 34.0 pg | EXTERNAL | | | | performed at [facility], [address] | | LAB | | | | [address], | | | | | | [place] [address] | | | | + + +---- + + + | MCHC | 32.3Comment: Testing | 32. 0 - 35.5 | EXTERNAL | | | | performed at [facility], [address] | g/d L | LAB | | | | [address], | | | | | | [place] [address] | | | | + + +---- + + + | RDW-CV | 57.3 (H)Comment: Testing | 37 - 53 fl | EXTERNAL | | | | performed at [facility], [address] | | LAB | | | | [address], | | | | | | [place] [address] | | | | + + +---- + + + | Platelet | 146 (L)Comment: Testing | 150 - 400 K/uL | EXTERNAL | | | Count | performed at [facility], [address] | | LAB | | | Plasma | [address], | | | | | | [place] [address] | | | | + + +---- + + + | MPV | 11.2Comment: Testing | fl | EXTERNAL | | | | performed at [facility], [address] | | LAB | | | | [address], | | | | | | [place] [address] | | | | + + +---- + + + | Differentia | MANUALComment: Testing | | EXTERNAL | | | l Type | performed at [facility], [address] | | LAB | | | | [address], | | | | | | [place] [address] | | | | + + +---- + + + | Segmented | 58Comment: Testing | % | EXTERNAL | | | Neutrophils | performed at [facility], [address] | | LAB | | | Manual | [address], | | | | | | [place] [address] | | | | + + +---- + + + | % Bands | 20Comment: Testing | % | EXTERNAL | | | | performed at [facility], [address] | | LAB | | | | [address], | | | | | | [place] [address] | | | | + + +---- + + + | Lymphocytes | 13Comment: Testing | % | EXTERNAL | | | Manual | performed at [facility], [address] | | LAB | | | | [address], | | | | | | [place] [address] | | | | + + +---- + + + | Monocytes | 7Comment: Testing | % | EXTERNAL | | | Manual | performed at [facility], [address] | | LAB | | | | [address], | | | | | | [place] [address] | | | | + + +---- + + + | Eosinophils | 2Comment: Testing | % | EXTERNAL | | | Manual | performed at [facility], [address] | | LAB | | | | [address], | | | | | | [place] [address] | | | | + + +---- + + + | Absolute | 9.23 (H)Comment: Testing | 1.9 0 - 7.40 | EXTERNAL | | | Neutrophils | performed at [facility], [address] | [address] | LAB | | | | [address], | | | | | | [place] [address] | | | | + + +---- + + + | Bands | 3.18 (H)Comment: Testing | 0.0 0 - 0.20 | EXTERNAL | | | Manual | performed at [facility], [address] | [address] | LAB | | | | [address], | | | | | | [place] [address] | | | | + + +---- + + + | Absolute | 2.07Comment: Testing | 1.0 0 - 3.90 | EXTERNAL | | | Lymphocytes | performed at [facility], [address] | K/u L | LAB | | | | [address], | | | | | | [place] [address] | | | | + + +---- + + + | Absolute | 1.11 (H)Comment: Testing | 0.0 0 - 0.80 | EXTERNAL | | | Monocytes | performed at [facility], [address] | [address] | LAB | | | | [address], | | | | | | [place] [address] | | | | + + +---- + + + | Absolute | 0.32Comment: Testing | 0.0 0 - 0.50 | EXTERNAL | | | Eosinophils | performed at [facility], [address] | K/u L | LAB | | | | [address], | | | | | | [place] [address] | | | | + + +---- + + + | RBC | 2+Comment: | | EXTERNAL | | | Morphology | MACRO1+ANISONORMAL PLT | | LAB | | | | MORPHTesting performed | | | | | | at [facility], [address] | | | | | | [address], | | | | | | [place] [address] | | | | | |Testing performed at [facility], [address] [place] [address] | | | | | | | [...] EXTERNAL | | | | performed at [facility], [address] | | LAB | | | | [address], | | | | | | [place] [address] | | | | + + + [...] | | | | | [place] [address] | | | | + + + [...] | | | | | [place] [address] | | | | + + + + + + | K | 3.9Comment: Testing | 3.5 - 4.9 | EXTERNAL | | | | performed at [facility], [address] | mmol/L | LAB | | | | [address], | | | | | | [place] [address] | | | | + + + + + + | Cl | 109Comment: Testing | 99 - 109 mmol/L | EXTERNAL | | | | performed at [facility], [address] | | LAB | | | | [address], | | | | | | [place] [address] | | | | + + + + + + | CO2 | 24Comment: Testing | 23 - 32 mmol/L | EXTERNAL | | | | performed at [facility], [address] | | LAB | | | | [address], | | | | | | [place] [address] | | | | + + + + + + | Anion Gap | 8Comment: Testing | 5 - 20 mmol/L | EXTERNAL | | | | performed at [facility], [address] | | LAB | | | | [address], | | | | | | [place] [address] | | | | + + + + + + | Glucose, | 98Comment: Testing | 65 - 99 mg/dL | EXTERNAL | | | Fasting | performed at [facility], [address] | | LAB | | | | [address], | | | | | | [place] [address] | | | | + + + + + + | BUN | 25Comment: Testing | 8 - 25 mg/dL | EXTERNAL | | | | performed at [facility], [address] | | LAB | | | | [address], | | | | | | [place] [address] | | | | + + + + + + | Creatinine | 1.39 (H)Comment: Testing | 0.50 - 1.00 | EXTERNAL | | | | performed at [facility], [address] | mg/dL | LAB | | | | [address], | | | | | | [place] [address] | | | | + + + + + + | BUN/Creatin | 18Comment: Testing | | EXTERNAL | | | ine Ratio | performed at [facility], [address] | | LAB | | | | [address], | | | | | | [place] [address] | | | | + + + + + + | Calcium | 8.2 (L)Comment: Testing | 8.5 - 10.5 | EXTERNAL | | | | performed at [facility], [address] | mg/dL | LAB | | | | [address], | | | | | | [place] [address] | | | | + + + + + + | Protein, | 6.1 (L)Comment: Testing | 6.3 - 8.2 g/dL | EXTERNAL | | | Total | performed at [facility], [address] | | LAB | | | | [address], | | | | | | [place] [address] | | | | + + + + + + | Albumin | 2.4 (L)Comment: Testing | 3.3 - 4.8 g/dL | EXTERNAL | | | | performed at [facility], [address] | | LAB | | | | [address], | | | | | | [place] [address] | | | | + + + + + + | Globulin | 3.7Comment: Testing | 1.3 - 4.9 g/dL | EXTERNAL | | | | performed at [facility], [address] | | LAB | | | | [address], | | | | | | [place] [address] | | | | + + + + + + | A/G Ratio | 0.6 (L)Comment: Testing | 1.0 - 2.4 | EXTERNAL | | | | performed at [facility], [address] | | LAB | | | | [address], | | | | | | [place] [address] | | | | + + + + + + | Bilirubin | 0.4Comment: Testing | 0.1 - 1.5 mg/dL | EXTERNAL | | | Total | performed at [facility], [address] | | LAB | | | | [address], | | | | | | [place] [address] | | | | + + + + + + | ALP, | 111Comment: Testing | 35 - 115 U/L | EXTERNAL | | | External | performed at [facility], [address] | | LAB | | | | [address], | | | | | | [place] [address] | | | | + + + + + + | AST | 29Comment: Testing | 10 - 45 U/L | EXTERNAL | | | | performed at [facility], [address] | | LAB | | | | [address], | | | | | | [place] [address] | | | | + + + + + + | ALT | 14Comment: Testing | 10 - 65 U/L | EXTERNAL | | | | performed at [facility], [address] | | LAB | | | | [address], | | | | | | [place] [address] | | | | + + + [...] | | | | | | at [facility], [address] | | | | | | [address], | | | | | | [place] [address] | | | | + + + [...] [place] | | | | | | [address] | | | | + + + + + + | RED CELL | 3.12 (L)Comment: Testing | 3.70 - 5.10 | EXTERNAL | | | COUNT | performed at [facility], [address] | M/uL | LAB | | | | [address], | | | | | | [place] [address] | | | | + + + + + + | Hgb | 10.8 (L)Comment: Testing | 11.3 - 15.5 | EXTERNAL | | | | performed at [facility], [address] | g/dL | LAB | | | | [address], | | | | | | [place] [address] | | | | + + + + + + | Hematocrit, | 33.7 (L)Comment: Testing | 34.0 - 46.0 % | EXTERNAL | | | POC | performed at [facility], [address] | | LAB | | | | [address], | | | | | | [place] [address] | | | | + + + + + + | MCV | 108.0 (H)Comment: | 80.0 - 100.0 fl | EXTERNAL | | | | Testing performed at | | LAB | | | | [facility], [address] | | | | | | [place] | | | | | | [address] | | | | + + + + + + | MCH | 34.7 (H)Comment: Testing | 27.0 - 34.0 pg | EXTERNAL | | | | performed at [facility], [address] | | LAB | | | | [address], | | | | | | [place] [address] | | | | + + + + + + | MCHC | 32.1Comment: Testing | 32.0 - 35.5 | EXTERNAL | | | | performed at [facility], [address] | g/dL | LAB | | | | [address], | | | | | | [place] [address] | | | | + + + + + + | RDW-CV | 55.6 (H)Comment: Testing | 37 - 53 fl | EXTERNAL | | | | performed at [facility], [address] | | LAB | | | | [address], | | | | | | [place] [address] | | | | + + + + + + | Platelet | 153Comment: Testing | 150 - 400 K/uL | EXTERNAL | | | Count | performed at [facility], [address] | | LAB | | | Plasma | [address], | | | | | | [place] [address] | | | | + + + + + + | MPV | 11.2Comment: Testing | fl | EXTERNAL | | | | performed at [facility], [address] | | LAB | | | | [address], | | | | | | [place], [place] [address] | | | | + + + + + + | Differentia | MANUALComment: Testing | | EXTERNAL | | | l Type | performed at [facility], [address] | | LAB | | | | [address], | | | | | | [place], [place] [address] | | | | + + + + + + | Segmented | 64Comment: Testing | % | EXTERNAL | | | Neutrophils | performed at [facility], [address] | | LAB | | | Manual | [address], | | | | | | [place] [address] | | | | + + + + + + | % Bands | 15Comment: Testing | % | EXTERNAL | | | | performed at [facility], [address] | | LAB | | | | [address], | | | | | | [place] [address] | | | | + + + + + + | % | 2Comment: Testing | % | EXTERNAL | | | Metamyelocy | performed at [facility], [address] | | LAB | | | [address] | [address], | | | | | | [place] [address] | | | | + + + + + + | Lymphocytes | 12Comment: Testing | % | EXTERNAL | | | Manual | performed at [facility], [address] | | LAB | | | | [address], | | | | | | [place] [address] | | | | + + + + + + | Monocytes | 6Comment: Testing | % | EXTERNAL | | | Manual | performed at [facility], [address] | | LAB | | | | [address], | | | | | | [place] [address] | | | | + + + + + + | Eosinophils | 1Comment: Testing | % | EXTERNAL | | | Manual | performed at [facility], [address] | | LAB | | | | [address], | | | | | | [place] [address] | | | | + + + + + + | Absolute | 11.48 (H)Comment: | 1.90 - 7.40 | EXTERNAL | | | Neutrophils | Testing performed at | K/uL | LAB | | | | [facility], [address] [facility] | | | | | | [place] | | | | | | [address] | | | | + + + + + + | Bands | 2.69 (H)Comment: Testing | 0.00 - 0.20 | EXTERNAL | | | Manual | performed at [facility], [address] | [address] | LAB | | | | [address], | | | | | | [place] [address] | | | | + + + + + + | Absolute | 0.36 (H)Comment: Testing | K/uL | EXTERNAL | | | Metamyelocy | performed at [facility], [address] | | LAB | | | [address] | [address], | | | | | | [place] [address] | | | | + + + + + + | Absolute | 2.15Comment: Testing | 1.00 - 3.90 | EXTERNAL | | | Lymphocytes | performed at [facility], [address] | K[address]uL | LAB | | | | [address], | | | | | | [place] [address] | | | | + + + + + + | Absolute | 1.08 (H)Comment: Testing | 0.00 - 0.80 | EXTERNAL | | | Monocytes | performed at [facility], [address] | [address]L | LAB | | | | [address], | | | | | | [place] [address] | | | | + + + + + + | Absolute | 0.18Comment: Testing | 0.00 - 0.50 | EXTERNAL | | | Eosinophils | performed at [facility], [address] | K/uL | LAB | | | | [address], | | | | | | [place] [address] | | | | + + + + + + | RBC | 2+Comment: MACRONORMAL | | EXTERNAL | | | Morphology | PLT MORPHTesting | | LAB | | | | performed at [facility], [address] | | | | | | [address], | | | | | | [place] [address] | | | | | | | [...] EXTERNAL | | | | performed at [facility];[address] | mmol/L | LAB | | | | [address];[place] | | | | | | [address] | | | | + + + + + + | K | 3.8Comment: Testing | 3.5 - 4.9 | EXTERNAL | | | | performed at [facility];[address] | mmol/L | LAB | | | | [address];[place] | | | | | | [address] | | | | + + + + + + | Cl | 107Comment: Testing | 99 - 109 mmol/L | EXTERNAL | | | | performed at [facility];[address] | | LAB | | | | [address];[place] | | | | | | [address] | | | | + + + + + + | CO2 | 26Comment: Testing | 23 - 32 mmol/L | EXTERNAL | | | | performed at [facility];[address] | | LAB | | | | [address];[place] | | | | | | [address] | | | | + + + + + + | Anion Gap | 12Comment: Testing | 5 - 20 mmol/L | EXTERNAL | | | | performed at [facility];[address] | | LAB | | | | [address];[place] | | | | | | [address] | | | | + + + + + + | Glucose, | 127 (H)Comment: Testing | 65 - 99 mg/dL | EXTERNAL | | | Fasting | performed at [facility];[address] | | LAB | | | | [address];[place] | | | | | | [address] | | | | + + + + + + | BUN | 28 (H)Comment: Testing | 8 - 25 mg/dL | EXTERNAL | | | | performed at [facility];[address] | | LAB | | | | [address];[place] | | | | | | [address] | | | | + + + + + + | Creatinine | 1.8 (H)Comment: Testing | 0.50 - 1.00 | EXTERNAL | | | | performed at [facility];[address] | mg/dL | LAB | | | | [address];[place] | | | | | | [address] | | | | + + + + + + | BUN/Creatin | 16Comment: Testing | | EXTERNAL | | | ine Ratio | performed at [facility];[address] | | LAB | | | | [address];[place] | | | | | | [address] | | | | + + + + + + | Calcium | 7.6 (L)Comment: Testing | 8.5 - 10.5 | EXTERNAL | | | | performed at [facility];888 | mg/dL | LAB | | | | [address];[place] | | | | | | [address] | | | | + + + [...] | | | | | | at [facility];[address];[place] [address] | | | | + + + [...] | | | | | | at [facility];[address] [place] [address] | | | | | | [facility];[place] [address] | | | | + + + [...] LAB | | | | [facility], [address] [facility] | | | | | | [place] | | | | | | [address] | | | | + + +---- + + + | RED CELL | 3.07 (L)Comment: Testing | 3.7 0 - 5.10 | EXTERNAL | | | COUNT | performed at [facility], [address] | M/u L | LAB | | | | [address], | | | | | | [place] [address] | | | | + + +---- + + + | Hgb | 10.8 (L)Comment: Testing | 11. 3 - 15.5 | EXTERNAL | | | | performed at [facility], [address] | g/d L | LAB | | | | [address], | | | | | | [place] [address] | | | | + + +---- + + + | Hematocrit, | 32.7 (L)Comment: Testing | 34. 0 - 46.0 % | EXTERNAL | | | POC | performed at [facility], [address] | | LAB | | | | [address], | | | | | | [place] [address] | | | | + + +---- + + + | MCV | 106.4 (H)Comment: | 80. 0 - 100.0 fl | EXTERNAL | | | | Testing performed at | | LAB | | | | [facility], [address] [facility] | | | | | | [place] | | | | | | [address] | | | | + + +---- + + + | MCH | 35.1 (H)Comment: Testing | 27. 0 - 34.0 pg | EXTERNAL | | | | performed at [facility], [address] | | LAB | | | | [address], | | | | | | [place] [address] | | | | + + +---- + + + | MCHC | 33.0Comment: Testing | 32. 0 - 35.5 | EXTERNAL | | | | performed at [facility], [address] | g/d L | LAB | | | | [address], | | | | | | [place] [address] | | | | + + +---- + + + | RDW-CV | 56.0 (H)Comment: Testing | 37 - 53 fl | EXTERNAL | | | | performed at [facility], [address] | | LAB | | | | [address], | | | | | | [place] [address] | | | | + + +---- + + + | Platelet | 151Comment: Testing | 150 - 400 K/uL | EXTERNAL | | | Count | performed at [facility], [address] | | LAB | | | Plasma | [address], | | | | | | [place] [address] | | | | + + +---- + + + | MPV | 11.7Comment: Testing | fl | EXTERNAL | | | | performed at [facility], [address] | | LAB | | | | [address], | | | | | | [place] [address] | | | | + + +---- + + + | Differentia | MANUALComment: Testing | | EXTERNAL | | | l Type | performed at [facility], [address] | | LAB | | | | [address], | | | | | | [place] [address] | | | | + + +---- + + + | Segmented | 57Comment: Testing | % | EXTERNAL | | | Neutrophils | performed at [facility], [address] | | LAB | | | Manual | [address], | | | | | | [place] [address] | | | | + + +---- + + + | % Bands | 26Comment: Testing | % | EXTERNAL | | | | performed at [facility], [address] | | LAB | | | | [address], | | | | | | [place] [address] | | | | + + +---- + + + | % | 4Comment: Testing | % | EXTERNAL | | | Metamyelocy | performed at [facility], [address] | | LAB | | | irma | [address] [place], | | | | | | [place] [address] | | | | + + +---- + + + | Lymphocytes | 9Comment: Testing | % | EXTERNAL | | | Manual | performed at [facility], [address] | | LAB | | | | [address], | | | | | | [place] [address] | | | | + + +---- + + + | Monocytes | 4Comment: Testing | % | EXTERNAL | | | Manual | performed at [facility], [address] | | LAB | | | | [address], | | | | | | [place] [address] | | | | + + +---- + + + | Absolute | 10.53 (H)Comment: | 1.9 0 - 7.40 | EXTERNAL | | | Neutrophils | Testing performed at | K/u L | LAB | | | | [facility], [address] | | | | | | [place] | | | | | | [address] | | | | + + +---- + + + | Bands | 4.80 (H)Comment: Testing | 0.0 0 - 0.20 | EXTERNAL | | | Manual | performed at [facility], [address] | K/u L | LAB | | | | [address] [place], | | | | | | [place] [address] | | | | + + +---- + + + | Absolute | 0.74 (H)Comment: Testing | K/u L | EXTERNAL | | | Metamyelocy | performed at [facility], [address] | | LAB | | | [address]ma | [address] [place], | | | | | | [place] [address] | | | | + + +---- + + + | Absolute | 1.66Comment: Testing | 1.0 0 - 3.90 | EXTERNAL | | | Lymphocytes | performed at [facility], [address] | K/u L | LAB | | | | [address], | | | | | | [place] [address] | | | | + + +---- + + + | Absolute | 0.74Comment: Testing | 0.0 0 - 0.80 | EXTERNAL | | | Monocytes | performed at [facility], [address] | K/u L | LAB | | | [address], | | | | | | [place] [address] | | | | + + +---- + + + | RBC | 2+Comment: | | EXTERNAL | | | Morphology | MACRO1+ANISONORMAL PLT | | LAB | | | | MORPHTesting performed | | | | | | at [facility], [address] | | | | | | [facility], | | | | | | [place] [address] | | | | | |Testing performed at [facility], [address] [facility], [place] [address] | | | | | | | [...] EXTERNAL | | | | performed at [facility];[address] | | LAB | | | | [address];[place], [place] | | | | | | [address] | | | | + + + [...] | | | | | performed at [facility];[address] | | | | | | [address];[place] | | | | | | [address] | | | | + + + [...] EXTERNAL | | | | performed at [facility];[address] | mmol/L | LAB | | | | [address];[place], [place] | | | | | | [address] | | | | + + + [...] EXTERNAL | | | | performed at [facility];[address] | mmol/L | LAB | | | | [address];[place] | | | | | | [address] | | | | + + + + + + | K | 4.4Comment: SPECIMEN | 3.5 - 4.9 | EXTERNAL | | | | SLIGHTLY | mmol/L | LAB | | | | HEMOLYZEDTesting | | | | | | performed at [facility];[address] | | | | | | [address];[place] | | | | | | [address] | | | | + + + + + + | Cl | 106Comment: Testing | 99 - 109 mmol/L | EXTERNAL | | | | performed at [facility];[address] | | LAB | | | | [address];[place] | | | | | | [address] | | | | + + + + + + | CO2 | 24Comment: Testing | 23 - 32 mmol/L | EXTERNAL | | | | performed at [facility];[address] | | LAB | | | | [address];[place] | | | | | | [address] | | | | + + + + + + | Anion Gap | 12Comment: Testing | 5 - 20 mmol/L | EXTERNAL | | | | performed at [facility];[address] | | LAB | | | | [address];[place] | | | | | | [address] | | | | + + + + + + | Glucose, | 103 (H)Comment: Testing | 65 - 99 mg/dL | EXTERNAL | | | Fasting | performed at [facility];[address] | | LAB | | | | [address];[place] | | | | | | [address] | | | | + + + + + + | BUN | 22Comment: Testing | 8 - 25 mg/dL | EXTERNAL | | | | performed at [facility];[address] | | LAB | | | | [address];[place] | | | | | | [address] | | | | + + + + + + | Creatinine | 1.9 (H)Comment: Testing | 0.50 - 1.00 | EXTERNAL | | | | performed at [facility];888 | mg/dL | LAB | | | | [address];[place] | | | | | | [address] | | | | + + + + + + | BUN/Creatin | 12Comment: Testing | | EXTERNAL | | | ine Ratio | performed at [facility];[address] | | LAB | | | | [address];[place] | | | | | | [address] | | | | + + + + + + | Calcium | 7.4 (L)Comment: Testing | 8.5 - 10.5 | EXTERNAL | | | | performed at [facility];888 | mg/dL | LAB | | | | [address];[place] | | | | | | [address] | | | | + + + + + + | Protein, | 6.5Comment: Testing | 6.3 - 8.2 g/dL | EXTERNAL | | | Total | performed at [facility];[address] | | LAB | | | | [address];[place] | | | | | | [address] | | | | + + + + + + | Albumin | 2.2 (L)Comment: Testing | 3.3 - 4.8 g/dL | EXTERNAL | | | | performed at [facility];[address] | | LAB | | | | [address];[place] | | | | | | [address] | | | | + + + + + + | Globulin | 4.4Comment: Testing | 1.3 - 4.9 g/dL | EXTERNAL | | | | performed at [facility];[address] | | LAB | | | | [address];[place] | | | | | | [address] | | | | + + + + + + | A/G Ratio | 0.5 (L)Comment: Testing | 1.0 - 2.4 | EXTERNAL | | | | performed at [facility];[address] | | LAB | | | | [address];[place] | | | | | | [address] | | | | + + + + + + | Bilirubin | 0.5Comment: Testing | 0.1 - 1.5 mg/dL | EXTERNAL | | | Total | performed at [facility] [place] | | LAB | | | | [address];[place] | | | | | | [address] | | | | + + + + + + | ALP, | 148 (H)Comment: Testing | 35 - 115 U/L | EXTERNAL | | | External | performed at [facility] [place] | | LAB | | | | [address];[place] | | | | | | [address] | | | | + + + + + + | AST | 41Comment: SPECIMEN | 10 - 45 U/L | EXTERNAL | | | | SLIGHTLY | | LAB | | | | HEMOLYZEDTesting | | | | | | performed at [facility] [place] | | | | | | [address];[place] | | | | | | [address] | | | | + + + + + + | ALT | 23Comment: Testing | 10 - 65 U/L | EXTERNAL | | | | performed at [facility] [place] | | LAB | | | | [address];[place] | | | | | | [address] | | | | + + + [...] | | | | | | at [facility] [place];[address] | | | | | | [address];[place] [address] | | | | + + + [...] WORKUP | | | Testing performed at [facility], [address], [place] | | | [address] | | + + + + +---------+ [...] EXTERNAL | | | | performed at [facility], [address] | | LAB | | | | [address], | | | | | | [place] [address] | | | | + + + + + + | Clarity | CLOUDYComment: Testing | | EXTERNAL | | | | performed at [facility], [address] | | LAB | | | | [address], | | | | | | [place] [address] | | | | + + + + + + | Specific | 1.015Comment: Testing | 1.002 - 1.030 | EXTERNAL | | | [place] | performed at [facility], [address] | | LAB | | | | [address], | | | | | | [place] [address] | | | | + + + + + + | Leukocyte | SMALL (A)Comment: | | EXTERNAL | | | Esterase, | Testing performed at | | LAB | | | Urine | [facility], [address] | | | | | | [place] | | | | | | [address] | | | | + + + + + + | Nitrite, | NEGATIVEComment: Testing | | EXTERNAL | | | Urine | performed at [facility], [address] | | LAB | | | | [address], | | | | | | [place] [address] | | | | + + + + + + | Urobilinoge | 0.2Comment: Testing | mg/dL | EXTERNAL | | | n, Urine | performed at [facility], [address] | | LAB | | | | [address], | | | | | | [place] [address] | | | | + + + + + + | Protein, | 100 (A)Comment: Testing | mg/dL | EXTERNAL | | | Urine | performed at [facility], [address] | | LAB | | | | [address], | | | | | | [place] [address] | | | | + + + + + + | pH, Urine | 6.5Comment: Testing | 5.0 - 8.0 | EXTERNAL | | | | performed at [facility], [address] | | LAB | | | | [address], | | | | | | [place] [address] | | | | + + + + + + | Blood, | MODERATE (A)Comment: | | EXTERNAL | | | Urine | Testing performed at | | LAB | | | | [facility], [address] | | | | | | [place] | | | | | | [address] | | | | + + + + + + | Ketones | NEGATIVEComment: Testing | mg/dL | EXTERNAL | | | | performed at [facility], [address] | | LAB | | | | [address], | | | | | | [place] [address] | | | | + + + + + + | Bilirubin, | NEGATIVEComment: Testing | | EXTERNAL | | | Urine | performed at [facility], [address] | | LAB | | | | [address], | | | | | | [place] [address] | | | | + + + + + + | Glucose, | NEGATIVEComment: Testing | mg/dL | EXTERNAL | | | Urine | performed at [facility], [address] | | LAB | | | | [address], | | | | | | [place] [address] | | | | + + + [...] | | | | | [place] [address] | | | | + + + + + + | RBC, UA | 1-5Comment: Testing | 0 - 5 /hpf | EXTERNAL | | | | performed at [facility], [address] | | LAB | | | | [address], | | | | | | [place] [address] | | | | + + + + + + | Epithelial | 0-2Comment: Testing | /lpf | EXTERNAL | | | Cells | performed at [facility], [address] | | LAB | | | | [address], | | | | | | [place] [address] | | | | + + + + + + | Bacteria, | TRACE (A)Comment: | | EXTERNAL | | | UA | Testing performed at | | LAB | | | | [facility], [address] | | | | | | [place] | | | | | | [address] | | | | + + + + + + | Urinalysis | CULTURE TO | | EXTERNAL | | | Comments | FOLLOWComment: Testing | | LAB | | | | performed at [facility], [address] | | | | | | [place], | | | | | | [place] [address] | | | | + + + [...] EXTERNAL | | | | performed at [facility];888 | mg/dL | LAB | | | | [address]iera [address];[place] | | | | | | [address] | | | | + + + [...] LAB | | C.diffAbnormal Testing performed at [facility];[address] [place] [address] | | | [phone] NAP1 BI 027 NAP1 BI | | | PRESUMPTIVE NEGATIVE Detection of 027 NAP1 BI strains of C. difficile | | | is presumptive and for epidemiological purposes and not intended to | | | guide or monitor treatment for C. difficile infections. Testing | | | performed at [facility];[address] [place] [address];[place] [address] | | + + + + +---------+ [...] EXTERNAL | | | | performed at [facility];888 | mmol/L | LAB | | | | [address];[place], [place] | | | | | | [address] | | | | + + + [...] | | | | | | at [facility];[address] | | | | | | [facility];[place] [address] | | | | + + + [...] EXTERNAL | | | | performed at [facility];[address] | | LAB | | | | [address];[place], [place] | | | | | | [address] | | | | + + + [...] | | | | | performed at [facility];[address] | | | | | | [facility];[place], [place] | | | | | | [address] | | | | + + + [...] K/uL | LAB | | | | [facility];[address] | | | | | | [place] [address] | | | | + + + + + + | RED CELL | 3.66 (L)Comment: Testing | 3.70 - 5.10 | EXTERNAL | | | COUNT | performed at [facility];888 | M/uL | LAB | | | | [address];[place] | | | | | | [address] | | | | + + + + + + | Hgb | 12.6Comment: Testing | 11.3 - 15.5 | EXTERNAL | | | | performed at [facility];888 | g/dL | LAB | | | | [address];[place] | | | | | | [address] | | | | + + + + + + | Hematocrit, | 38.9Comment: Testing | 34.0 - 46.0 % | EXTERNAL | | | POC | performed at [facility];[address] | | LAB | | | | [address];[place] | | | | | | [address] | | | | + + + + + + | MCV | 106.3 (H)Comment: | 80.0 - 100.0 fl | EXTERNAL | | | | Testing performed at | | LAB | | | | [facility];[address] | | | | [address];[place] [address] | | | | + + + + + + | MCH | 34.3 (H)Comment: Testing | 27.0 - 34.0 pg | EXTERNAL | | | | performed at [facility];[address] | | LAB | | | | [address];[place] | | | | | | [address] | | | | + + + + + + | MCHC | 32.3Comment: Testing | 32.0 - 35.5 | EXTERNAL | | | | performed at [facility];888 | g/dL | LAB | | | | [address];[place] | | | | | | [address] | | | | + + + + + + | RDW-CV | 54.7 (H)Comment: Testing | 37 - 53 fl | EXTERNAL | | | | performed at [facility];[address] | | LAB | | | | [address];[place] | | | | | | [address] | | | | + + + + + + | Platelet | 167Comment: Testing | 150 - 400 K/uL | EXTERNAL | | | Count | performed at [facility];[address] | | LAB | | | Plasma | [address];[place] | | | | | | [address] | | | | + + + + + + | MPV | 10.6Comment: Testing | fl | EXTERNAL | | | | performed at [facility];[address] | | LAB | | | | [address];[place] | | | | | | [address] | | | | + + + + + + | Differentia | MANUALComment: Testing | | EXTERNAL | | | l Type | performed at [facility];[address] | | LAB | | | | [address];[place] | | | | | | [address] | | | | + + + + + + | Segmented | 54Comment: Testing | % | EXTERNAL | | | Neutrophils | performed at [facility];[address] | | LAB | | | Manual | [address];[place] | | | | | | [address] | | | | + + + + + + | % Bands | 18Comment: Testing | % | EXTERNAL | | | | performed at [facility];[address] | | LAB | | | | [address];[place] | | | | | | [address] | | | | + + + + + + | Lymphocytes | 16Comment: Testing | % | EXTERNAL | | | Manual | performed at [facility];[address] | | LAB | | | | [address];[place] | | | | | | [address] | | | | + + + + + + | Monocytes | 12Comment: Testing | % | EXTERNAL | | | Manual | performed at [facility];[address] | | LAB | | | | [address];[place] | | | | | | [address] | | | | + + + + + + | Absolute | 10.69 (H)Comment: | 1.90 - 7.40 | EXTERNAL | | | Neutrophils | Testing performed at | K/uL | LAB | | | | [facility];[address] | | | | [address];[place] [address] | | | | + + + + + + | Bands | 3.56 (H)Comment: Testing | 0.00 - 0.20 | EXTERNAL | | | Manual | performed at [facility];[address] | K/uL | LAB | | | | [address];[place] | | | | | | [address] | | | | + + + + + + | Absolute | 3.16Comment: Testing | 1.00 - 3.90 | EXTERNAL | | | Lymphocytes | performed at [facility];[address] | K/uL | LAB | | | | [address];[place] | | | | | | [address] | | | | + + + + + + | Absolute | 2.37 (H)Comment: Testing | 0.00 - 0.80 | EXTERNAL | | | Monocytes | performed at [facility];[address] | K/uL | LAB | | | | [address];[place] | | | | | | [address] | | | | + + + + + + | Platelet | ADEQUATEComment: Testing | | EXTERNAL | | | Estimate | performed at [facility];[address] | | LAB | | | | [address];[place] | | | | | | [address] | | | | + + + + + + | RBC | NORMAL PLT MORPHComment: | | EXTERNAL | | | Morphology | 1+ANISOTesting | | LAB | | | | performed at [facility];[address] | | | | | | [address];[place] | | | | | | [address] | | | | | | | [...] EXTERNAL | | | | performed at [facility];888 | uIU/mL | LAB | | | | [address];[place], [place] | | | | | | [address] | | | | + + + [...] EXTERNAL | | | | performed at [facility];[address] | | LAB | | | | [address];[place], [place] | | | | | | [address] | | | | + + + [...] | | LAB | | | | [facility];[address] | | | | | | [address];[place] [address] | | | | + + + [...] EXTERNAL | | | | performed at [facility];[address] | | LAB | | | | [address];[place], [place] | | | | | | [address] | | | | + + + [...] EXTERNAL | | | | performed at [facility];[address] | | LAB | | | | [address];[place] | | | | | | [address] | | | | + + + [...] EXTERNAL | | | | performed at [facility];[address] | mmol/L | LAB | | | | [address];[place] | | | | | | [address] | | | | + + + + + + | K | 3.4 (L)Comment: Testing | 3.5 - 4.9 | EXTERNAL | | | | performed at [facility];[address] | mmol/L | LAB | | | | [address];[place] | | | | | | [address] | | | | + + + + + + | Cl | 101Comment: Testing | 99 - 109 mmol/L | EXTERNAL | | | | performed at [facility];[address] | | LAB | | | | [address];[place] | | | | | | [address] | | | | + + + + + + | CO2 | 27Comment: Testing | 23 - 32 mmol/L | EXTERNAL | | | | performed at [facility];[address] | | LAB | | | | [address];[place] | | | | | | [address] | | | | + + + + + + | Anion Gap | 12Comment: Testing | 5 - 20 mmol/L | EXTERNAL | | | | performed at [facility];[address] | | LAB | | | | [address];[place] | | | | | | [address] | | | | + + + + + + | Glucose, | 106 (H)Comment: Testing | 65 - 99 mg/dL | EXTERNAL | | | Fasting | performed at [facility];[address] | | LAB | | | | [address];[place] | | | | | | [address] | | | | + + + + + + | BUN | 18Comment: Testing | 8 - 25 mg/dL | EXTERNAL | | | | performed at [facility];[address] | | LAB | | | | [address];[place] | | | | | | [address] | | | | + + + + + + | Creatinine | 1.3 (H)Comment: Testing | 0.50 - 1.00 | EXTERNAL | | | | performed at [facility];888 | mg/dL | LAB | | | | [address];[place] | | | | | | [address] | | | | + + + + + + | BUN/Creatin | 14Comment: Testing | | EXTERNAL | | | ine Ratio | performed at [facility];[address] | | LAB | | | | [address];[place] | | | | | | [address] | | | | + + + + + + | Calcium | 7.3 (L)Comment: Testing | 8.5 - 10.5 | EXTERNAL | | | | performed at [facility];888 | mg/dL | LAB | | | | [address];[place] | | | | | | [address] | | | | + + + + + + | Protein, | 7.9Comment: Testing | 6.3 - 8.2 g/dL | EXTERNAL | | | Total | performed at [facility];[address] | | LAB | | | | [address];[place] | | | | | | [address] | | | | + + + + + + | Albumin | 2.5 (L)Comment: Testing | 3.3 - 4.8 g/dL | EXTERNAL | | | | performed at [facility];[address] | | LAB | | | | [address];[place] | | | | | | [address] | | | | + + + + + + | Globulin | 5.4 (H)Comment: Testing | 1.3 - 4.9 g/dL | EXTERNAL | | | | performed at [facility];[address] | | LAB | | | | [address];[place] | | | | | | [address] | | | | + + + + + + | A/G Ratio | 0.5 (L)Comment: Testing | 1.0 - 2.4 | EXTERNAL | | | | performed at [facility];[address] | | LAB | | | | [address];[place] | | | | | | [address] | | | | + + + + + + | Bilirubin | 0.6Comment: Testing | 0.1 - 1.5 mg/dL | EXTERNAL | | | Total | performed at [facility];[address] | | LAB | | | | [address];[place] | | | | | | [address] | | | | + + + + + + | ALP, | 188 (H)Comment: Testing | 35 - 115 U/L | EXTERNAL | | | External | performed at [facility];[address] | | LAB | | | | [address];[place] | | | | | | [address] | | | | + + + + + + | AST | 51 (H)Comment: Testing | 10 - 45 U/L | EXTERNAL | | | | performed at [facility];[address] | | LAB | | | | [address];[place] | | | | | | [address] | | | | + + + + + + | ALT | 30Comment: Testing | 10 - 65 U/L | EXTERNAL | | | | performed at [facility];[address] | | LAB | | | | [address];[place] | | | | | | [address] | | | | + + + [...] | | | | | | at [facility];[address] | | | | [address];[place] [address] | | | | + + + [...] Conversion - 01/05/2019 4:32 AM PDT COLE [id number] yearsXR | | CHEST 1 VIEW01/28/2015 2:40 [...]
--- OUTSIDE RECORDS SUMMARY | ~2019-05-19 | XMS | Encounter Summary ---
Demographics + + + | Address | [address] | | | [place] [address] | + + + | Home Phone | | + + + | Preferred Language | Unknown | + + + | Marital Status | Single | + + + | Nondenominational Affiliation | 1041 | + + + | Race | Unknown | + + + | Ethnic Group | Unknown | + + + Author + + + | Author | [facility] | | | and [place] | + + + | Organization | [facility] | | | [...] Team Providers + +------+ + | Care Respiratory Assistant Name | Role | Phone | + +------+ + | Rick Osorio DO | PCP | | + +------+ + Encounter Details +--------+ + + + + | Date | Type | Department | Care Team | Description | +--------+ + + + + | 11/15/ | Orders Only | [facility] | Emil Oliva MD | | | 2014 | | NEPHROLOGY [place] | [address] [place] | | | | | [address] | [address] [place], [place] | | | | | [address] [place], [place] | [address] | | | | | [address] | | | | | | [phone] | | | +--------+ + + + [...]
--- OUTSIDE RECORDS SUMMARY | ~2019-05-19 | XMS | Encounter Summary ---
Demographics + + + | Address | [address] | | | [place] [address] | + + + | Home Phone [...] Team Providers + +------+ + | Care Profiler Hand Name | Role | Phone | + [...] | | | | | [place], | [place], [place] | | | | | [place] [address] | [address] | | | | | [phone] | | | +--------+ + + + [...]
--- OUTSIDE RECORDS SUMMARY | ~2019-05-19 | XMS | Encounter Summary ---
Demographics + + + | Address | [address] | | | [place] [address] | + + + | Home Phone [...] Team Providers + +------+ + | Care Computer Programming Professor Name | Role | Phone | [...] | | | | | [place], | [place], [place] | | | | | [place] [address] | [address] | | | | | [phone] | | | +--------+ + + + [...]
--- OUTSIDE RECORDS SUMMARY | ~2019-05-19 | XMS | Encounter Summary ---
Demographics + + + | Address | [address] | | | [place] [address] | + + + | Home Phone [...] Team Providers + +------+ + | Care Ec Teacher Name | Role | Phone | + +------+ + | Rick Osorio DO | PCP | | + +------+ + Encounter Details +--------+ + + + + | Date | Type | Department | Care Team | Description | +--------+ + + + + | 06/04/ | Orders Only | [facility] | Emil Oliva MD | | | 2013 | | NEPHROLOGY [place] | [address] | | | | | [address] | [address] [place], [place] | | | | | [address] [place], [place] | [address] | | | | | [address] | | | | | | [phone] | | | +--------+ + + + [...] | | | LAB | | | [place] | | | | | + +-------+ [...]
--- OUTSIDE RECORDS SUMMARY | ~2019-05-19 | XMS | Encounter Summary ---
Demographics + + + | Address | [address] | | | [place] [address] | + + + | Home Phone | | + + + | Preferred Language | Unknown | + + + | Marital Status | Single | + + + | Mormonism Affiliation | 1041 | + + + | Race | Unknown | + + + | Ethnic Group | Unknown | + + + Author + + + | Author | [facility] | | | and [place] | + + + | Organization | [facility] | | [...] Team Providers + +------+ + | Care Pipe Testing Technician Name | Role | Phone | + +------+ + | Rick Osorio DO | PCP | | + +------+ + Encounter Details +--------+ + + + + | Date | Type | Department | Care Team | Description | +--------+ + + + + | 12/05/ | Orders Only | [facility] | Emil Oliva MD | | | 2013 | | NEPRHOLOGY [place] | [address] | | | | | [address] | [address] [place], [place] | | | | | [address] [place], [place] | [address] | | | | | [address] | | | | | | [phone] | | | +--------+ + + + [...]
--- OUTSIDE RECORDS SUMMARY | ~2019-05-19 | XMS | Encounter Summary ---
Demographics + + + | Address | [address] | | | [place] [address] | + + + | Home Phone [...] Team Providers + +------+ + | Care Inclusion Special Educator Name | Role | Phone | + [...] POPLAR | Dx) | | | | [address] [place], | [place], [place] | | | | | [place] [address] | [address] | | | | | [phone] | | | +--------+ + + + [...]
--- OUTSIDE RECORDS SUMMARY | ~2019-05-19 | XMS | Encounter Summary ---
Demographics + + + | Address | [address] | | | [place] [address] | + + + | Home Phone [...] Providers + +------+ + | Care Clinical Trials Assistant Name | Role | Phone | [...] | | | CONSULT | [place] | [place] [address] | | | | | | [place], [place] | Phone: | | | | | | [address] | [phone] | | | | | | Phone: | Fax: | | | | | | [phone] | [phone] | | | | | | Fax: | | | | | | | [phone] | | +--------+--------+ + + + + [...] | Dx); Kyphosis | | | | [place], | [place], [place] | deformity of spine | | | | [place] [address] | [address] | | | | | [phone] | | | +--------+---------+ + + + [...] oxygen at 2 L per minute at [facility] while she slept. Over [...] A copy of the patient's echocardiogram from [facility] will be reviewed. CC: Yovani Santana documented in this encounter Plan of Treatment Not on filedocumented as of this encounter Results PFT PULMONARY FUNCTION TESTING ORDERS Full PFT ([place] w/BD, lung volumes, diffusion)?: Yes; Rest and [...] MD 03/27/2014 13:24 | | | [facility] | | + + + [...] 03/26/14Electronically signed by: Gary Melendez MD 03/27/2014 13:24[facility] | | [facility] | | | |No prior pulmonary function tests available for comparison. | | | |Test performed: 03/26/14 | |Electronically signed by: Gary Melendez MD 03/27/2014 13:24 | |[facility] | + + documented in this encounter Visit Diagnoses + + | Diagnosis | + + | Hypoxemia - Primary | + + | Kyphosis deformity of spine Kyphosis (acquired) (postural) | + + documented in this encounter
--- OUTSIDE RECORDS SUMMARY | ~2019-05-19 | XMS | Encounter Summary ---
Demographics + + + | Address | [address] | | | [place] [address] | + + + | Home Phone [...] Team Providers + +------+ + | Care Oracle Database Architect Name | Role | Phone | + +------+ + | Rick Osorio DO | PCP | | + +------+ + Encounter Details +--------+ + + + + | Date | Type | Department | Care Team | Description | +--------+ + + + + | 06/04/ | Orders Only | [facility] | Emil Oliva MD | | | 2013 | | NEPHROLOGY [place] | [address] | | | | | [address] [place] | [address] [place], [place] | | | | | [address] [place], [place] | [address] | | | | | [address] | | | | | | [phone] | | | +--------+ + + + [...] | | | LAB | | | [place] | | | | | + +-------+ [...]
--- OUTSIDE RECORDS SUMMARY | ~2019-05-19 | XMS | Encounter Summary ---
Demographics + + + | Address | [address] | | | [place] [address] | + + + | Home Phone [...] + +------+ + | Care Order Entry Technician Name | Role | Phone | [...] [place], [place] | | | | | [place], [place] | [address] | | | | | [address] | | | | | | [phone] | | | +--------+ + + + [...] 0.03 m/s | | | MV Dec Dillingham: 9.74 m/s2 MV DecT: 91.63 ms MV E Billy: 0.89 | | | m/s MV E/A Ratio: 26.03 MV PHT: 26.57 ms MVA By PHT: 8.27 | | | cm2 Septal e': 0.06 m/s Septal E/e': 12.90 Lateral e': | | | 0.09 m/s Lateral E/e': 8.96 RAP: 5 mmHg RVSP: 17.59 mmHg | | | TR maxP.59 mmHg TR Vmax: 1.77 m/s Milk Deliverer: NAIF | | | Authenticated by: Conor Kemplas [place] Report Date/Time: -- | | | [id number]:51:12 | | + + + + + [...] cmLVPWd: 1.14 cmLVOT | | Area: 3.33 [id number] Diam: 2.06 cm%FS: 26.43 %EF(Teich): 51.67 %ESV(Teich): [...] (A-L): | | 45.82 ml/m2LAAs A2C: 22.15 [id number] A-L A2C: 71.25 mlLALs A2C: 5.84 cmLAAs A4C: | | 28.64 qf4IJXOT A-L A4C: 104.24 mlLALs A4C: 6.68 cmRAAs: 14.65 [id number] A-L: | | 33.90 mlRAESV MOD: 34.21 mlRALs: 5.37 cmAV maxP.81 mmHgAV meanP.70 | | mmHgAV Vmax: 1.30 m/Sorin Vmean: 0.90 m/Sorin VTI: 24.74 cmAVA Vmax: 2.36 cm2AVA | | (VTI): 2.24 oj7DCNJ maxP.41 mmHgLVOT meanP.88 mmHgLVSI Dopp: 27.63 | | ml/m2LVSV Dopp: 55.54 mlLVOT Vmax: 0.92 m/sLVOT Vmean: 0.64 m/sLVOT VTI: 16.66 | | cmMV A Billy: 0.03 m/sMV Dec Dillingham: 9.74 m/s2MV DecT: 91.63 msMV E Billy: 0.89 m/sMV | | E/A Ratio: 26.03MV PHT: 26.57 msMVA By PHT: 8.27 zc7Tditac e': 0.06 m/sSeptal | | E/e': 12.90Lateral e': 0.09 m/sLateral E/e': 8.96RAP: 5 mmHgRVSP: 17.59 mmHgTR | | maxP.59 mmHgTR Vmax: 1.77 m/s Milk Deliverer: DHAuthenticated by: Conor | | [facility] Date/Time: -- [id number]:51:12 IMPRESSION: 1. The left ventricle is | [...] A Billy: 0.03 m/s | |MV Dec [place]: 9.74 m/s2 | |MV DecT: 91.63 ms [...] |TR Vmax: 1.77 m/s | | | |Milk Deliverer: NAIF | |Authenticated by: Conor Garcia | |Report Date/Time: -- [id number]:51:12 | | | |IMPRESSION: | |1. The [...]
--- OUTSIDE RECORDS SUMMARY | ~2019-05-19 | XMS | Clinical Summary ---
Demographics + + + | Address | [address] | | | [place] [address] | + + + | Home Phone | | + + + | Preferred Language | Unknown | + + + | Marital Status | | + + + | Voodoo Affiliation | 1041 | + + + | Race | Unknown | + + + | Ethnic Group | Unknown | + + + Author + + + | Author | [facility] [employer] (Historical as of | | | 01-06-19) | + + + | Organization | [facility] [employer] (Historical as of | | | 01-06-19) [...] Team Providers + +------+ + | Care Garbage Collection Supervisor Name | Role | Phone | [...] | MA - GENERIC | MA-GEN | [id number] | [employer] | | | | | [...] | | | | | | | [address] | + +--------+ +--------+ + +
[~2019-05-19 06:16] MED LIST changes: +DILTIAZEM 24HR180 M1 PO; +DILTIAZEM ER120 MG PO; +LEVOTHYROXINE88 MCG PO
--- OUTSIDE RECORDS SUMMARY | 2019-05-19 06:18 | XMS ---
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 Care History Medical/Surgical 02/06/2018 [facility] - Patient is currently established with [facility]. If patient is seen in the ED during business hours. Please contact CHWs at [facility]. Care Recommendation: This patient has [...] providing care. E.D. VISIT COUNT (12 MO.) 6 [facility]. TOTAL 6 NOTE: Visits indicate total known visits. ED/UCC VISIT TRACKING (12 MO.) 05/19/2019 06:17 [facility] TYPE: Emergency COMPLAINT: - SOB 05/09/2019 11:17 [facility] [place] TYPE: Emergency COMPLAINT: - AFIB 05/06/2019 15:13 [facility] [place] TYPE: Emergency COMPLAINT: - HEART PALPITATIONS DIAGNOSES: - Hypothyroidism, unspecified - Allergy status to narcotic agent status - Other medical terminologist (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 - Dyspnea, unspecified - Unspecified atrial fibrillation 11/29/2018 07:36 [facility] [place] TYPE: Emergency COMPLAINT: - WEAKNESS 10/13/2018 08:25 [facility] [place] TYPE: Emergency COMPLAINT: - R ANKLE PAIN/INJURY DIAGNOSES: - Unspecified sprain of right foot, initial encounter - Pain in right ankle and joints of right foot - Allergy status to narcotic agent status - Personal history of nicotine dependence - Unspecified atrial fibrillation - penitentiary (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 - Chronic kidney disease, unspecified - Other halfway (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 - Hypothyroidism, unspecified - Overexertion from prolonged static or awkward postures, init 06/04/2018 09:27 [facility] [place] TYPE: Emergency COMPLAINT: - WEAKNESS/COUGH INPATIENT VISIT TRACKING (12 MO.) 05/09/2019 11:18 [facility] [place] TYPE: Observation COMPLAINT: - AFIB DIAGNOSES: - Chronic respiratory failure with hypoxia - Other medical terminologist (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 - intermediate frame tender (current) use of opiate analgesic - Liver transplant status - Restless legs syndrome - Chronic pain syndrome - Hypothyroidism, unspecified - Allergy status to narcotic agent status - 1 Hyp hrt \T\ chr kdny dis w hrt fail and stg 1-4/unsp chr kdny - Other disorders of lung - Hypomagnesemia - Dizziness and giddiness - Scoliosis, unspecified - Dependence on supplemental oxygen - Acute on chronic diastolic (congestive) heart failure - Chronic kidney disease, unspecified - Unspecified atrial fibrillation 11/29/2018 09:11 [facility] [place] TYPE: Medical Surgical COMPLAINT: - ZULAY,UTI,R FOOT FX DIAGNOSES: - Scoliosis, unspecified - Disp fx of second metatarsal bone, right foot, init - Unsp place [facility] ([facility] as place - Other medical terminologist (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 - Unspecified fall, initial encounter - Acute kidney failure, unspecified - Oth bacterial agents as the cause of diseases classd elswhr - Chronic kidney disease, unspecified - Unsp place in [facility] ([facility] residence as place - Hypothyroidism, [...] coagulation profile - Scoliosis, unspecified - Other medical terminologist (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 - Adverse effect of [...] supplemental oxygen - Dependence on supplemental oxygen [email or web address]
[2019-05-19] MEDS ORDERED: LASIX20 MG PO (11:00)
--- NOTE | 2019-05-19 13:52 | EKG ---
[facility] [address] [facility] [place] [address] Signed Normal sinus rhythm Low voltage QRS Borderline ECG When compared with ECG of 10-MAY-2019 07:31, Sinus rhythm has replaced Atrial fibrillation QRS voltage has decreased T wave inversion no longer evident in Anterior leads Confirmed by OLIVERIO YU MD ([id number]) on 05/19/2019 1:51:47 PM Electronically Signed By: OLIVERIO YU MD 05/19/19 1352 PATIENT NAME: COLE ERNST Electrocardiogram DATE OF : 45 PHYSICIAN: OLIVERIO YU MD REPORT #: [id number] REPORT IS CONFIDENTIAL AND NOT TO BE RELEASED WITHOUT AUTHORIZATION
== END 2019-05-19 11:45 | disposition home or self-care (01) ==
LOC: ED 06:16
DX: I50.9 Heart failure, unspecified (principal); N18.9 Chronic kidney disease, unspecified; E03.9 Hypothyroidism, unspecified; I48.91 Unspecified atrial fibrillation; Z88.5 Allergy status to narcotic agent; Z79.899 Other long term (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; Z79.01 Long term (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
CPT/HCPCS: 71045; 80053; 83735; 83880; 84484; 85025; 85610; 93005; 93010; 96374; 99285-25; J1940

== ENCOUNTER 2019-05-29 15:13 | Emergency (ER) | payer MEDICARE, OTHER ==
[~2019-05-29] VITALS: Ht 157.5 cm; Wt 95.2 kg
--- OUTSIDE RECORDS SUMMARY | ~2019-05-29 | XMS | Encounter Summary ---
Demographics + + + | Address | [address] | | | [place] [address] | + + + | Home Phone | | + + + | Preferred Language | Unknown | + + + | Marital Status | Single | + + + | Amish Affiliation | 1041 | + + + | Race | Unknown | + + + | Ethnic Group | Unknown | + + + Author + + + | Author | [facility] | | | and [place] | + + + | Organization | [facility] | | | and [...] Team Providers + +------+ + | Care Seamer Panty Hose Name | Role | Phone | + +------+ + | Rick Osorio DO | PCP | | + +------+ + Encounter Details +--------+ + + + + | Date | Type | Department | Care Team | Description | +--------+ + + + + | 06/04/ | Orders Only | [facility] | Emil Oliva MD | | | 2013 | | NEPHROLOGY [place] | [address] | | | | | [address] | [address] [place], [place] | | | | | [address] [place], [place] | [address] | | | | | [address] | | | | | | [phone] | | | +--------+ + + + + Social History + +-------+ +--------+------+ | Tobacco Use | Types | Packs/Day | Years | Date | | | | | Used | | + +-------+ +--------+------+ | Never Assessed | | | | | + +-------+ +--------+------+ + + + | Sex Assigned at [...] recent travel history available. | + + documented as of this encounter Plan of Treatment Not on filedocumented as of this encounter Procedures + +--------+ + + + | Procedure Name | Priori | Date/Time | Associated Diagnosis | Comments | | | ty | | | | + +--------+ + + + | EXTERNAL LAB: CBC | Routin | 12/05/2013 | | Results for this | | | e | 12:00 AM | | procedure are in the | | | | PDT | | results section. | + +--------+ + + + | IRON AND IRON | Routin | 12/05/2013 | | Results for this | | BINDING CAPACITY | e | 12:00 AM | | procedure are in the | | | | PDT | | results section. | + +--------+ + + + | VITAMIN D, | Routin | 12/05/2013 | | Results for this | | DEFICIENCY SCREEN | e | 12:00 AM | | procedure are in the | | (25-HYDROXY) | | PDT | | results section. | + +--------+ + + + | PARATHYROID HORMONE, | Routin | 12/05/2013 | | Results for this | | INTACT AND CALCIUM | e | 12:00 AM | | procedure are in the | | | | PDT | | results section. | + +--------+ + + + | URIC ACID | Routin | 12/05/2013 | | Results for this | | | e | 12:00 AM | | procedure are in the | | | | PDT | | results section. | + +--------+ + + + | TRANSFERRIN | Routin | 12/05/2013 | | Results for this | | | e | 12:00 AM | | procedure are in the | | | | PDT | | results section. | + +--------+ + + + | MAGNESIUM | Routin | 12/05/2013 | | Results for this | | | e | 12:00 AM | | procedure are in the | | | | PDT | | results section. | + +--------+ + + + | FERRITIN | Routin | 12/05/2013 | | Results for this | | | e | 12:00 AM | | procedure are in the | | | | PDT | | results section. | + +--------+ + + + | RENAL FUNCTION PANEL | Routin | 12/05/2013 | | Results for this | | | e | 12:00 AM | | procedure are in the | | | | PDT | | results section. | + +--------+ + + + | EXTERNAL LAB: CBC | Routin | 06/04/2013 | | Results for this | | | e | 12:00 AM | | procedure are in the | | | | PST | | results section. | + +--------+ + + + | URINALYSIS WITH | Routin | 06/04/2013 | | Results for this | | MICROSCOPIC WITH | e | 12:00 AM | | procedure are in the | | CULTURE IF INDICATED | | PST | | results section. | + +--------+ + + + | PROTEIN/CREATININE | Routin | 06/04/2013 | | Results for this | | RATIO, URINE | e | 12:00 AM | | procedure are in the | | | | PST | | results section. | + +--------+ + + + | PROTEIN, URINE, | Routin | 06/04/2013 | | Results for this | | RANDOM | e | 12:00 AM | | procedure are in the | | | | PST | | results section. | + +--------+ + + + | CREATININE, URINE, | Routin | 06/04/2013 | | Results for this | | RANDOM | e | 12:00 AM | | procedure are in the | | | | PST | | results section. | + +--------+ + + + | URIC ACID | Routin | 06/04/2013 | | Results for this | | | e | 12:00 AM | | procedure are in the | | | | PST | | results section. | + +--------+ + + + | MAGNESIUM | Routin | 06/04/2013 | | Results for this | | | e | 12:00 AM | | procedure are in the | | | | PST | | results section. | + +--------+ + + + | BASIC METABOLIC | Routin | 06/04/2013 | | Results for this | | PANEL | e | 12:00 AM | | procedure are in the | | | | PST | | results section. | + +--------+ + + + documented in this encounter Results Iron and Iron Binding Capacity (12/05/2013 12:00 AM PDT) + +-------+ + + + | Component | Value | Ref Range | Performed | Pathologist | | | | | At | Signature | + +-------+ + + + | Iron | 84 | | EXTERNAL | | | | | | LAB | | + +-------+ + + + | Iron | 24.0 | | EXTERNAL | | | Saturation | | | LAB | | + +-------+ + + + | TIBC | 350 | | EXTERNAL | | | | | | LAB | | + +-------+ + + + + + | Specimen | + + | Blood specimen | | (specimen) | + + + +---------+ + + | Performing | Address | City/State/Zipcode | Phone Number | | Organization | | | | + +---------+ + + | EXTERNAL LAB | | | | + +---------+ + + Parathyroid Hormone, Intact and Calcium (12/05/2013 12:00 AM PDT) + +-------+ + + + | Component | Value | Ref Range | Performed | Pathologist | | | | | At | Signature | + +-------+ + + + | PTH Intact | 86.97 | | EXTERNAL | | | | | | LAB | | + +-------+ + + + | Calcium | 8.8 | | EXTERNAL | | | | | | LAB | | + +-------+ + + + + + | Specimen | + + | Blood specimen | | (specimen) | + + + +---------+ + + | Performing | Address | City/State/Zipcode | Phone Number | | Organization | | | | + +---------+ + + | EXTERNAL LAB | | | | + +---------+ + + Vitamin D, Deficiency Screen (25-Hydroxy) (12/05/2013 12:00 AM PDT) + +-------+ + + + | Component | Value | Ref Range | Performed | Pathologist | | | | | At | Signature | + +-------+ + + + | Vit D, | 33 | | EXTERNAL | | | 25-Hydroxy | | | LAB | | + +-------+ + + + + + | Specimen | + + | Blood specimen | | (specimen) | + + + +---------+ + + | Performing | Address | City/State/Zipcode | Phone Number | | Organization | | | | + +---------+ + + | EXTERNAL LAB | | | | + +---------+ + + External Lab: CBC (12/05/2013 12:00 AM PDT) + +-------+ + + + | Component | Value | Ref Range | Performed | Pathologist | | | | | At | Signature | + +-------+ + + + | WBC | 8.9 | 10 | EXTERNAL | | | | | | LAB | | + +-------+ + + + | RED CELL | 3.19 | 10 | EXTERNAL | | | COUNT | | | LAB | | + +-------+ + + + | Hgb | 11.3 | g/dL | EXTERNAL | | | | | | LAB | | + +-------+ + + + | Hematocrit, | 33.3 | % | EXTERNAL | | | POC | | | LAB | | + +-------+ + + + | MCV | 104.3 | fL | EXTERNAL | | | | | | LAB | | + +-------+ + + + | MCH | 35 | pg | EXTERNAL | | | | | | LAB | | + +-------+ + + + | MCHC | 34 | g/dL | EXTERNAL | | | | | | LAB | | + +-------+ + + + | Platelet | 178 | K/ L | EXTERNAL | | | Count | | | LAB | | | Plasma | | | | | + +-------+ + + + | RDW-CV | 14.3 | % | EXTERNAL | | | | | | LAB | | + +-------+ + + + | MPV | | fL | EXTERNAL | | | | | | LAB | | + +-------+ + + + | Differentia | Auto | | EXTERNAL | | | l Type | | | LAB | | + +-------+ + + + | % Segmented | 45.1 | % | EXTERNAL | | | | | | LAB | | | Neutrophils | | | | | + +-------+ + + + | % | 40.0 | % | EXTERNAL | | | Lymphocytes | | | LAB | | + +-------+ + + + | % Monocytes | 11.7 | % | EXTERNAL | | | | | | LAB | | + +-------+ + + + | % | 2.8 | % | EXTERNAL | | | Eosinophils | | | LAB | | + +-------+ + + + | % Basophils | 0.4 | % | EXTERNAL | | | | | | LAB | | + +-------+ + + + | Absolute | | / L | EXTERNAL | | | Segmented | | | LAB | | | Neutrophils | | | | | + +-------+ + + + | Absolute | | / L | EXTERNAL | | | Lymphocytes | | | LAB | | + +-------+ + + + | Absolute | | / L | EXTERNAL | | | Monocytes | | | LAB | | + +-------+ + + + | Absolute | | / L | EXTERNAL | | | Eosinophils | | | LAB | | + +-------+ + + + | Absolute | | / L | EXTERNAL | | | Basophils | | | LAB | | + +-------+ + + + + + | Specimen | + + | Blood specimen | | (specimen) | + + + +---------+ + + | Performing | Address | City/State/Zipcode | Phone Number | | Organization | | | | + +---------+ + + | EXTERNAL LAB | | | | + +---------+ + + Uric Acid (12/05/2013 12:00 AM PDT) + +-------+ + + + | Component | Value | Ref Range | Performed | Pathologist | | | | | At | Signature | + +-------+ + + + | Uric Acid | 9.6 | | EXTERNAL | | | | | | LAB | | + +-------+ + + + + + | Specimen | + + | Blood specimen | | (specimen) | + + + +---------+ + + | Performing | Address | City/State/Zipcode | Phone Number | | Organization | | | | + +---------+ + + | EXTERNAL LAB | | | | + +---------+ + + Transferrin (12/05/2013 12:00 AM PDT) + +-------+ + + + | Component | Value | Ref Range | Performed | Pathologist | | | | | At | Signature | + +-------+ + + + | TRANSFERRIN | 250 | | EXTERNAL | | | | | | LAB | | + +-------+ + + + + + | Specimen | + + | Blood specimen | | (specimen) | + + + +---------+ + + | Performing | Address | City/State/Zipcode | Phone Number | | Organization | | | | + +---------+ + + | EXTERNAL LAB | | | | + +---------+ + + Magnesium (12/05/2013 12:00 AM PDT) + +-------+ + + + | Component | Value | Ref Range | Performed | Pathologist | | | | | At | Signature | + +-------+ + + + | Magnesium | 1.8 | mg/dL | EXTERNAL | | | | | | LAB | | + +-------+ + + + + + | Specimen | + + | Blood specimen | | (specimen) | + + + +---------+ + + | Performing | Address | City/State/Zipcode | Phone Number | | Organization | | | | + +---------+ + + | EXTERNAL LAB | | | | + +---------+ + + Ferritin (12/05/2013 12:00 AM PDT) + +-------+ + + + | Component | Value | Ref Range | Performed | Pathologist | | | | | At | Signature | + +-------+ + + + | Ferritin, | 84.06 | ng/mL | EXTERNAL | | | External | | | LAB | | + +-------+ + + + + + | Specimen | + + | Blood specimen | | (specimen) | + + + +---------+ + + | Performing | Address | City/State/Zipcode | Phone Number | | Organization | | | | + +---------+ + + | EXTERNAL LAB | | | | + +---------+ + + Renal Function Panel (12/05/2013 12:00 AM PDT) + +-------+ + + + | Component | Value | Ref Range | Performed | Pathologist | | | | | At | Signature | + +-------+ + + + | Glucose, | 91 | mg/dL | EXTERNAL | | | Fasting | | | LAB | | + +-------+ + + + | BUN | 42 | mg/dL | EXTERNAL | | | | | | LAB | | + +-------+ + + + | Creatinine | 1.38 | mg/dL | EXTERNAL | | | | | | LAB | | + +-------+ + + + | PHOSPHORUS | | mg/dL | EXTERNAL | | | | | | LAB | | + +-------+ + + + | Albumin | 3.7 | | EXTERNAL | | | | | | LAB | | + +-------+ + + + | Na | 133 | mmol/L | EXTERNAL | | | | | | LAB | | + +-------+ + + + | K | 4.8 | mmol/L | EXTERNAL | | | | | | LAB | | + +-------+ + + + | Cl | 98 | mmol/L | EXTERNAL | | | | | | LAB | | + +-------+ + + + | CO2 | 31 | mmol/L | EXTERNAL | | | | | | LAB | | + +-------+ + + + | Anion Gap | 8.8 | mmol/L | EXTERNAL | | | | | | LAB | | + +-------+ + + + | eGFR if not | | | EXTERNAL | | | | | | LAB | | | [place] | | | | | + +-------+ + + + | Phosphorus, | 4.5 | | EXTERNAL | | | Inorganic | | | LAB | | + +-------+ + + + | BUN/Creatin | 30.4 | | EXTERNAL | | | ine Ratio | | | LAB | | + +-------+ + + + | Calcium | 8.8 | mg/dL | EXTERNAL | | | | | | LAB | | + +-------+ + + + | Estimated | 38 | mg/dL | EXTERNAL | | | GFR | | | LAB | | + +-------+ + + + + + | Specimen | + + | Blood specimen | | (specimen) | + + + +---------+ + + | Performing | Address | City/State/Zipcode | Phone Number | | Organization | | | | + +---------+ + + | EXTERNAL LAB | | | | + +---------+ + + Urinalysis with Microscopic with Culture if Indicated (06/04/2013 12:00 AM PST) + + + + + + | Component | Value | Ref Range | Performed | Pathologist | | | | | At | Signature | + + + + + + | Color | Yellow | | EXTERNAL | | | | | | LAB | | + + + + + + | Clarity | Clear | | EXTERNAL | | | | | | LAB | | + + + + + + | Spec Grav, | 1.004 | | EXTERNAL | | | Fluid | | | LAB | | + + + + + + | Leukocyte | Negative | | EXTERNAL | | | Esterase, | | | LAB | | | Urine | | | | | + + + + + + | Nitrite, | Negative | | EXTERNAL | | | Urine | | | LAB | | + + + + + + | Urobilinoge | Normal | | EXTERNAL | | | n, Urine | | | LAB | | + + + + + + | Total | Negative | | EXTERNAL | | | Protein | | | LAB | | + + + + + + | pH, Urine | 8 | | EXTERNAL | | | | | | LAB | | + + + + + + | Blood, | Negative | | EXTERNAL | | | Urine | | | LAB | | + + + + + + | Ketones | Negative | | EXTERNAL | | | | | | LAB | | + + + + + + | Bilirubin, | Negative | | EXTERNAL | | | Urine | | | LAB | | + + + + + + | Glucose, | Negative | | EXTERNAL | | | Urine | | | LAB | | + + + + + + | WBC, UA | | | EXTERNAL | | | | | | LAB | | + + + + + + | RBC, UA | | | EXTERNAL | | | | | | LAB | | + + + + + + | Epithelial | | | EXTERNAL | | | Cells | | | LAB | | + + + + + + | Bacteria, | | | EXTERNAL | | | UA | | | LAB | | + + + + + + | HYALINE | | | EXTERNAL | | | CASTS UA | | | LAB | | + + + + + + + + | Specimen | + + | | + + + +---------+ + + | Performing | Address | City/State/Zipcode | Phone Number | | Organization | | | | + +---------+ + + | EXTERNAL LAB | | | | + +---------+ + + Protein/Creatinine Ratio, Urine (06/04/2013 12:00 AM PST) + +-------+ + + + | Component | Value | Ref Range | Performed | Pathologist | | | | | At | Signature | + +-------+ + + + | Protein/Cre | 909.1 | | EXTERNAL | | | at Ratio | | | LAB | | + +-------+ + + + + + | Specimen | + + | Urine specimen | | (specimen) | + + + +---------+ + + | Performing | Address | City/State/Zipcode | Phone Number | | Organization | | | | + +---------+ + + | EXTERNAL LAB | | | | + +---------+ + + Protein, Urine, Random (06/04/2013 12:00 AM PST) + +-------+ + + + | Component | Value | Ref Range | Performed | Pathologist | | | | | At | Signature | + +-------+ + + + | Protein, | 10 | | EXTERNAL | | | Urine | | | LAB | | + +-------+ + + + + + | Specimen | + + | Urine specimen | | (specimen) | + + + +---------+ + + | Performing | Address | City/State/Zipcode | Phone Number | | Organization | | | | + +---------+ + + | EXTERNAL LAB | | | | + +---------+ + + Creatinine, Urine, Random (06/04/2013 12:00 AM PST) + +-------+ + + + | Component | Value | Ref Range | Performed | Pathologist | | | | | At | Signature | + +-------+ + + + | Creatinine, | 11 | | EXTERNAL | | | 24H Ur | | | LAB | | + +-------+ + + + + + | Specimen | + + | Urine specimen | | (specimen) | + + + +---------+ + + | Performing | Address | City/State/Zipcode | Phone Number | | Organization | | | | + +---------+ + + | EXTERNAL LAB | | | | + +---------+ + + External Lab: CBC (06/04/2013 12:00 AM PST) + +-------+ + + + | Component | Value | Ref Range | Performed | Pathologist | | | | | At | Signature | + +-------+ + + + | WBC | 9.5 | 10 | EXTERNAL | | | | | | LAB | | + +-------+ + + + | RED CELL | 3.14 | 10 | EXTERNAL | | | COUNT | | | LAB | | + +-------+ + + + | Hgb | 11.3 | g/dL | EXTERNAL | | | | | | LAB | | + +-------+ + + + | Hematocrit, | 33.9 | % | EXTERNAL | | | POC | | | LAB | | + +-------+ + + + | MCV | 108.0 | fL | EXTERNAL | | | | | | LAB | | + +-------+ + + + | MCH | 36 | pg | EXTERNAL | | | | | | LAB | | + +-------+ + + + | MCHC | 33 | g/dL | EXTERNAL | | | | | | LAB | | + +-------+ + + + | Platelet | 170 | K/ L | EXTERNAL | | | Count | | | LAB | | | Plasma | | | | | + +-------+ + + + | RDW-CV | 14.1 | % | EXTERNAL | | | | | | LAB | | + +-------+ + + + | MPV | | fL | EXTERNAL | | | | | | LAB | | + +-------+ + + + | Differentia | Auto | | EXTERNAL | | | l Type | | | LAB | | + +-------+ + + + | % Segmented | 42.3 | % | EXTERNAL | | | | | | LAB | | | Neutrophils | | | | | + +-------+ + + + | % | 43.7 | % | EXTERNAL | | | Lymphocytes | | | LAB | | + +-------+ + + + | % Monocytes | 9.6 | % | EXTERNAL | | | | | | LAB | | + +-------+ + + + | % | 3.4 | % | EXTERNAL | | | Eosinophils | | | LAB | | + +-------+ + + + | % Basophils | 1.0 | % | EXTERNAL | | | | | | LAB | | + +-------+ + + + | Absolute | | / L | EXTERNAL | | | Segmented | | | LAB | | | Neutrophils | | | | | + +-------+ + + + | Absolute | | / L | EXTERNAL | | | Lymphocytes | | | LAB | | + +-------+ + + + | Absolute | | / L | EXTERNAL | | | Monocytes | | | LAB | | + +-------+ + + + | Absolute | | / L | EXTERNAL | | | Eosinophils | | | LAB | | + +-------+ + + + | Absolute | | / L | EXTERNAL | | | Basophils | | | LAB | | + +-------+ + + + + + | Specimen | + + | Blood specimen | | (specimen) | + + + +---------+ + + | Performing | Address | City/State/Zipcode | Phone Number | | Organization | | | | + +---------+ + + | EXTERNAL LAB | | | | + +---------+ + + Uric Acid (06/04/2013 12:00 AM PST) + +-------+ + + + | Component | Value | Ref Range | Performed | Pathologist | | | | | At | Signature | + +-------+ + + + | Uric Acid | 8.6 | | EXTERNAL | | | | | | LAB | | + +-------+ + + + + + | Specimen | + + | Blood specimen | | (specimen) | + + + +---------+ + + | Performing | Address | City/State/Zipcode | Phone Number | | Organization | | | | + +---------+ + + | EXTERNAL LAB | | | | + +---------+ + + Magnesium (06/04/2013 12:00 AM PST) + +-------+ + + + | Component | Value | Ref Range | Performed | Pathologist | | | | | At | Signature | + +-------+ + + + | Magnesium | 2.3 | mg/dL | EXTERNAL | | | | | | LAB | | + +-------+ + + + + + | Specimen | + + | Blood specimen | | (specimen) | + + + +---------+ + + | Performing | Address | City/State/Zipcode | Phone Number | | Organization | | | | + +---------+ + + | EXTERNAL LAB | | | | + +---------+ + + Basic Metabolic Panel (06/04/2013 12:00 AM PST) + +-------+ + + + | Component | Value | Ref Range | Performed | Pathologist | | | | | At | Signature | + +-------+ + + + | Glucose, | 88 | mg/dL | EXTERNAL | | | Fasting | | | LAB | | + +-------+ + + + | BUN | 29 | mg/dL | EXTERNAL | | | | | | LAB | | + +-------+ + + + | Creatinine | 1.25 | mg/dL | EXTERNAL | | | | | | LAB | | + +-------+ + + + | BUN/Creatin | 23.2 | | EXTERNAL | | | ine Ratio | | | LAB | | + +-------+ + + + | Calcium | 9.0 | mg/dL | EXTERNAL | | | | | | LAB | | + +-------+ + + + | Na | 135 | mmol/L | EXTERNAL | | | | | | LAB | | + +-------+ + + + | K | 4.3 | mmol/L | EXTERNAL | | | | | | LAB | | + +-------+ + + + | Cl | 91 | mmol/L | EXTERNAL | | | | | | LAB | | + +-------+ + + + | CO2 | 34 | mmol/L | EXTERNAL | | | | | | LAB | | + +-------+ + + + | Anion Gap | 14.3 | mmol/L | EXTERNAL | | | | | | LAB | | + +-------+ + + + | Estimated | 43 | mg/dL | EXTERNAL | | | GFR | | | LAB | | + +-------+ + + + + + | Specimen | + + | Blood specimen | | (specimen) | + + + +---------+ + + | Performing | Address | City/State/Zipcode | Phone Number | | Organization | | | | + +---------+ + + | EXTERNAL LAB | | | | + +---------+ + + documented in this encounter Visit Diagnoses Not on filedocumented in this encounter"
--- OUTSIDE RECORDS SUMMARY | ~2019-05-29 | XMS | Encounter Summary ---
Demographics + + + | Address | [address] | | | [place] [address] | + + + | Home Phone | | + + + | Preferred Language | Unknown | + + + | Marital Status | Single | + + + | Orthodoxy Affiliation | 1041 | + + + | Race | Unknown | + + + | Ethnic Group | Unknown | + + + Author + + + | Author | [facility] | | | and [place] | + + + | Organization | [facility] | | | [...] Team Providers + +------+ + | Care Rack Pusher Name | Role | Phone | + +------+ + | Rick Osorio DO | PCP | | + +------+ + Encounter Details +--------+ + + + + | Date | Type | Department | Care Team | Description | +--------+ + + + + | 11/15/ | Orders Only | [facility] | Emil Oliva MD | | | 2014 | | NEPHROLOGY [place] | [address] | | | | | [address] | [address] [place], [place] | | | | | [address] [place], [place] | [address] | | | | | [address] | | | | | | [phone] | | | +--------+ + + + [...] | 7 Standard drinks | 5.8 | beer nightly | | | or equivalent | | | + + +---------+ + + + [...] | + +--------+ + + + | CULTURE, URINE | Routin | 11/15/2014 | | Results for this | | | e | 12:00 AM | | procedure are in the | | | | PDT | | results section. | + +--------+ + + + documented in this encounter Results Culture, Urine (11/15/2014 12:00 AM PDT) + + | Specimen | + + | Urine specimen | | (specimen) | + + + + + | Narrative | Performed At | + + + | Specimen Description Urine CULTURE | EXTERNAL LAB | | See table below Gram Positive | | | Coccus Identified As Enterococcus Faecalis REPORT STATUS | | | Final | | + + + + +---------+ + + | Performing | Address | City/State/Zipcode | Phone Number | | Organization | | | | + +---------+ + + | EXTERNAL LAB | | | | + +---------+ + + documented in this encounter Visit Diagnoses Not on filedocumented in this encounter"
--- OUTSIDE RECORDS SUMMARY | ~2019-05-29 | XMS | Encounter Summary ---
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 In some [facility], a lung transplant is an option. Your healthcare team may include: A primary care provider,such as your family doctor. A road crew member,a specialist in lung problems. A pulmonary nurse specialistwho helps you understand and carry out your treatment. A pulmonary rehabilitation specialistwho helps you gain strength through exercise. A social workerwho helps with your daily needs, family life, and stress. [id number] [employer]. [address] [place] [address]. All righ ts reserved. This information is [...]
--- OUTSIDE RECORDS SUMMARY | ~2019-05-29 | XMS | Encounter Summary ---
Demographics + + + | Address | [address] | | | [place] [address] | + + + | Home Phone | | + + + | Preferred Language | Unknown | + + + | Marital Status | Single | + + + | Bahai Affiliation | 1041 | + + + | Race | Unknown | + + + | Ethnic Group | Unknown | + + + Author + + + | Author | [facility] | | | and [place] | + + + | Organization | [facility] | | | [...] Team Providers + +------+ + | Care Salt Operator Name | Role | Phone | + +------+ + | Rick Osorio DO | PCP | | + +------+ + Encounter Details +--------+ + + + + | Date | Type | Department | Care Team | Description | +--------+ + + + + | 11/15/ | Orders Only | [facility] | Emil Oliva MD | | | 2014 | | NEPHROLOGY [place] | [address] | | | | | [address] | [address] [place], [place] | | | | | [address] [place], [place] | [address] | | | | | [address] | | | | | | [phone] | | | +--------+ + + + [...]
--- OUTSIDE RECORDS SUMMARY | ~2019-05-29 | XMS | Encounter Summary ---
Demographics + + + | Address | [address] | | | [place] [address] | + + + | Home Phone | | + + + | Preferred Language | Unknown | + + + | Marital Status | Single | + + + | Evangelical Affiliation | [id number] | + + + | Race | Unknown | + + + | Ethnic Group | Unknown | + + + Author + + + | Author | [facility] | | | and [place] | + + + | Organization | [facility] | | | and [...] Team Providers + +------+ + | Care Short Order Fry Cook Name | Role | Phone | + +------+ + | Yovani Santana MD | PCP | | + +------+ + Encounter Details +--------+ + + + + | Date | Type | Department | Care Team | Description | +--------+ + + + + | 01/28/ | Hospital | [facility] | Jacob Smith, | | | 2014 - | Encounter | [facility] | MD Carmelo SANTAMARIA | | | | | CARE FLOOR [address] | [place] [address] | | | 02/03/ | | TIERA SANTAMARIA | [phone] | | | 2014 | | [place], [place] | | | | | | [address] | | | | | | [phone] | | | +--------+ + + + [...] documented as of this encounter Discharge Summaries Jose Maria Hawk MD - 02/03/2015 10:29 AM PDT Discharge Summaries by Jose Maria Espinal MD at 02/03/15 1029 Author: Jose Maria Espinal MD Service: Hospitalist Author Type: Physician Filed: 02/12/15 0924 Date of Service: 02/03/15 1029 Status: Signed Refrigerating Engineer Head: Jose Maria Espinal MD (Physician) Related Notes: Original Note by Jose Maria Espinal MD (Physician) filed at 02/04/15 1345 [facility]: Hospitalist Physician Discharge Summary Patient ID: Cole Ernst 1945 69 y.o. Admit date: 01/28/2015 Discharge date: 02/03/2015 Admitting Physician: Jacob Smith MD Discharge Physician: Jose Maria Espinal MD Consultants: Treatment Team: Admitting Provider: Jacob Smith MD Primary Discharge Diagnoses: Principal Problem: Intestinal infection due to Clostridium difficile Active Problems: Liver replaced by transplant (HCC) Essential hypertension, benign Dyslipidemia Anemia Hypothyroidism CKD (chronic kidney disease), stage III Other severe protein-calorie malnutrition (HCC) Feve Resolved Problems: * No resolved hospital problems. * HPI and Hospital Course: History of Present Illness: " The patient is a 69 y.o. female with significant past medical history of liver transplant int he 90s on cyclosporine and imuran, chronic pain on methadone, CKD st 3, chronic home O2 of unclear etiology from 2-4 lpm, Presented as a transfer from [facility] in [place] for fever of 101 and altered mental s tatus. She was discharged from [facility] on 01/09/15 for elevated troponin and acute on chronic r enal failure. She had a stress test which was negative. Elevated troponin deemed due to dem and ischemia and renal failure. She was treated medically, with renal failure resolved comp letely. She was on rocephin for UTI but urine cultures were negative. She was discharged to SNF wit h no antibiotics. She was brought back in to [facility] for fever and confusion. UA and CXR reportedly negative there. SBP was 90s. She had formed stool there but en route here she did develop watery stool, tested C diff + here.".......per admitting MD/Dr. Smith . The patient was admitted to [facility] with a diagnosis of Clostridium difficile infection while she was being transferred from [facility] with fever and altered mental status. Th e patient has underlying immunosuppression secondary to a remote history of liver transplant on chronic immunosuppressive therapy with azathioprine and cyclosporin. Following her trans fletcher to [facility], she was started on oral vancomycin initially at 125 mg p.o. q.6h. and subsequen tly that was increased to 250 mg q.6h. as her diarrhea and frequency continued fairly unchan ged for at least 48 hours following admission. With adjustment of the dose of vancomycin, fr equency of stools started to decline; and very slowly the stools started to become more form ed over time. In the last 48 hours, the patient had completely formed stools and her previou sly noted leukocytosis has resolved. It normalized. She had no episodes of fever. Following admission her liver functional tests remained within normal limits. She was tolerating diet. She had some left lower quadrant discomfort which persisted for initial 4 days of hospitali zation and slowly resolved probably representing the discomfort originating from her Clostri dium difficile infection. Overall Ms. Ernst did very well. She was declared medically stable for discharge to return to [facility] in [place] on Jan. ADDITIONAL ISSUES 1. Recurrent atelectasis. The patient has body habitus that predisposes her to pickwickian/ hypoventilatory syndrome. She was asked to perform incentive spirometry on an hourly basis w hile awake for a total of 10 to 12 breaths every hour on the hour. She had difficulty inspir ing more than 750 mL consistently throughout the hospitalization, and that was unchanged. It improves when the patient is sitting up as opposed to reclining at 30-degree angle. The pat ient has a body habitus as such that during the inspiratory phase she has a likely restricte d pattern, and therefore inspiratory volume is limited predisposing her to recurrent atelect asis. She had no symptoms of pneumonia during this hospitalization. The patient is scheduled to complete a total of 10 days of oral vancomycin therapy. She was given handouts and an in formation packet with respect to Clostridium difficile infection and overall hygiene related to the post treatments phase including sterilization of her surroundings from Clostridium d ifficile spores along with frequent hand washing with only soap and water. The alcohol-based hand sanitizers do not work in protecting the patient or staff of the facility from the tra nsmission of Clostridium difficile infection. This point was reiterated to Ms. Jovanny keithron and she seems to understand that. ADDITIONAL ISSUES Hypomagnesemia. The patient has demonstrated recurrent low levels of magnesium for which evelyn tellez was requiring nearly daily supplementation of magnesium. She received her last dose of IV magnesium of 1 g magnesium sulfate on the day of discharge. Oral magnesium was not prescribe d for the patient at the time of discharge as its administration can cause diarrhea which at this time can be confused with recurrent symptoms of Clostridium difficile. This patient florentino s had problems with diarrhea for the past number of days. I would urge managing physician at [facility]dc facility where the patient resides in [facility] to check anothe r magnesium level every 3 days x3 to ensure magnesium levels are staying appropriately high. If needed she might require addition IV magnesium versus initiation of oral magnesium suppl ementation should the patient's bowel function remain normal. Past Medical History: Past Medical History Diagnosis Date Stroke (HCC) Hyperlipidemia Hypertension Past Surgical History Procedure Laterality Date Liver transplant 192 Gallbladder surgery 1992 Splenectomy Colonoscopy N/A 01/17/2015 Procedure: COLONOSCOPY; Surgeon: Juan Ramey MD; Location: [facility] ENDOSCOPY; Service: Gastroenterology; Laterality: N/A; Discharged Condition: Stable for discharge as stated above. Significant Diagnostic Studies: X-ray Chest 2 View Frontal & Lateral 01/30/2015 HISTORY: Sepsis. COMPARISON: 01/28/15, 01/14/15. TECHNIQUE: PA and lateral fi lms of the chest. FINDINGS: Slight elevation right hemidiaphragm. Persistent borderline car diac enlargement. Strandy changes bilateral perihilar regions and right lung base. I would f avor atelectasis. Improved aeration. Postoperative changes in the left and right epigastrium . 01/30/2015 1. Improved aeration, with probable bilateral perihilar and right basilar mild atelectasis. No definite infiltrates. 2. Borderline cardiac enlargement. 3. Mild elevatio n right hemidiaphragm. X-ray Foot Left 01/29/2015 [facility] XR FOOT LEFT HISTORY: 69 years. Female. Fall TECHNIQUE: 3 vie ws left foot COMPARISON: None. FINDINGS: Small inferior calcaneal spur. Subtle lucency wit hin the distal first metatarsal which may be projectional in nature or small chip fracture. Correlate with point tenderness. Bipartite medial sesamoid. 01/29/2015 1. Subtle lucency within the distal first metatarsal that may represent a small chip fracture or could be projectional in nature. Correlate with point tenderness. Electro nically signed by Anup Baptiste DO on 01/29/2015 5:53 PM Xr Chest 1 View 01/28/2015 [facility] 1945 69 years XR CHEST 1 VIEW 01/28/2015 2:40 PM INDICATION : Shortness of breath and fever COMPARISON: 01/14/2015 TECHNIQUE: Chest 1 view, AP view of the chest FINDINGS: Lung volumes are markedly diminished from the previous exam. There is no pneumothorax noted. The cardiac silhouette is unchanged in appearance from prior study. C holecystectomy clips are seen in the right upper quadrant. Multiple surgical clips are prese nt along the epigastrium secondary to previous splenectomy. Increasing perihilar opacities a re noted which is felt to reflect atelectasis. The pulmonary markings are normal in caliber. 01/28/2015 1. Diminished lung volumes from prior study with increasing probable perihilar atelectasis. Pneumonia cannot be excluded due to the low lung volumes. Electronically arpita d by Chang Gar MD on 01/28/2015 2:44 PM Discharge Vitals: Filed Vitals: 02/02/15 2149 02/02/15 2337 02/03/15 0327 02/03/15 0716 BP: 142/81 157/81 130/62 161/83 Pulse: 77 77 67 72 Temp: 98 F (36.7 C) 98.1 F (36.7 C) 98.2 F (36.8 C) TempSrc: Oral Oral Oral Resp: 16 16 18 Height: Weight: 97.8 kg (215 lb 9.8 oz) SpO2: 97% 97% 97% Discharge Exam: Physical Exam Constitutional: She is oriented to person, place, and time. She appears well-developed. Increased BMI particularly involving upper trunk/ increased adipose tissue deposition HENT: Head: Normocephalic. Mouth/Throat: Oropharynx is clear and moist. No oropharyngeal exudate. Eyes: Pupils are equal, round, and reactive to light. No scleral icterus. Neck: Normal range of motion. Cardiovascular: Normal rate and regular rhythm. Pulmonary/Chest: Effort normal. No stridor. She has no wheezes. She exhibits no tenderness. Decreased breath sounds at the bases Abdominal: Soft. Obese abdomen ; organomegaly cannot be assessed due to large abdomen ; it was not tender on palpation Neurological: She is alert and oriented to person, place, and time. Coordination normal. Skin: Skin is warm and dry. She is not diaphoretic. No erythema. Psychiatric: She has a normal mood and affect. Her behavior is normal. LABS: Recent Labs Lab 02/03/1532302/02/1531602/01/15325 WBC 8.81 8.59 8.36 HGB 9.6* 9.7* 9.4* HCT 28.8* 29.6* 29.1* PLT 216 181 174 Recent Labs Lab 02/03/1532302/02/15141102/02/1531602/01/15 0326 NA 136 -- 138 137 K 4.0 3.7 3.2* 3.8 CL 102 -- 103 111* CO2 33* -- 31 25 BUN 9 -- 10 13 CREATININE 0.82 -- 0.83 0.74 PROT 6.3 -- 6.2* 5.9* BILITOT 0.5 -- 0.5 0.4 ALT 21 -- 15 14 AST 53* -- 35 23 Phosphorus: Recent Labs Lab 02/03/15 0324 PHOS 2.7 Recent Labs Lab 02/03/1532302/02/15141102/02/15316 MG 1.4* 1.7 1.3* Recent Labs Lab 01/28/15 1447 TSH 1.71 Recent Labs Lab 01/28/15 1447 CKTOTAL 266* TROPONINI 0.083 CKMBINDEX 0.4 Disposition: SNF Follow up: Ki De Jesus DO [address] [facility] [address] [place] [address] Schedule an appointment as soon as possible for a visit in 2 weeks For hospitalization re-evaluation ; Medication List START taking these medications lactobacillus granules QTY: 60 packet Refills: 3 Take 1 packet by mouth 2 (two) times daily. vancomycin 25 mg/mL Soln QTY: 200 mL Refills: 0 Commonly known as: VANCOCIN Take 10 mLs by mouth every 6 (six) hours. CONTINUE taking these medications aspirin EC 81 MG EC tablet QTY: 30 tablet Refills: 0 Take 1 tablet by mouth daily with breakfast. azaTHIOprine 50 MG tablet Refills: 0 Commonly known as: IMURAN Cholecalciferol 2000 UNITS Caps Refills: 0 cyanocobalamin 1000 MCG tablet Refills: 0 Commonly known as: VITAMIN B-12 cycloSPORINE 25 MG capsule Refills: 0 Commonly known as: sandIMMUNE fluticasone 50 MCG/ACT nasal Refills: 0 Commonly known as: FLONASE gabapentin 400 MG capsule QTY: 60 capsule Refills: 0 Commonly known as: NEURONTIN Take 1 capsule by mouth 2 (two) times daily. HYDROcodone-acetaminophen 10-325 MG per tablet QTY: 20 tablet Refills: 0 Commonly known as: NORCO Take 1 tablet by mouth every 4 (four) hours as needed. levothyroxine 125 MCG tablet Refills: 0 Commonly known as: SYNTHROID metoprolol 100 MG tablet Refills: 0 Commonly known as: LOPRESSOR multivitamin & minerals w iron/FA 27-0.8 MG Tabs tablet QTY: 30 tablet Refills: 0 Take 1 tablet by mouth daily. STOP taking these medications pravastatin 10 MG tablet Commonly known as: PRAVACHOL Where to Get Your Medications You need to pickle solution maker these prescriptions. We sent some of them to a specific pharmacy. Go t o these places to get your medications. [facility] - [place], [place] - [address] - lactobacillus granules [address] [place] [address] You may get the following medications from any pharmacy - HYDROcodone-acetaminophen 10-325 MG per tablet - vancomycin 25 mg/mL Bonnie sEpinal MD 02/03/2015 10:29 AM Discharge took more than 35 minutes, to include final examination, discussion of admission, and preparation of prescriptions, instructions for ongoing care, follow up and dictation of summary. documented in thi s encounter Medications at Time of Discharge + [...] Progress Notes Conversion Transaction, Provider Unknown - 02/03/2015 4:09 PM PDTFormatting of this note m ight be different from the original. Case Management by Pedro Partida RN at 02/03/151608 Author: Pedro Partida RN Service: (none) Author Type: Registered Nurse Filed: 02/03/151608 Date of Service: 02/03/151608 Status: Signed Refrigerating Engineer Head: Pedro Partida RN (Registered Nurse) 02/03/151602 Discharge Planning Evaluation Admitting Diagnosis Elevated temp, CKD, post liver transplant Readmission Yes-within 14 days Reason for readmission Fever, confusion, C.dif Last discharge disposition [facility] Facility Needs met at last discharge Yes Picked up discharge Rx medications Yes Started prescribed DC meds Yes Understood discharge instructions Yes Assistance available Yes Concerns for meeting needs No Caregiver after Discharge Yes Mental Status Oriented Anticipated Disposition Facility Type assisted facility [facility] Other (comment) ([facility] in [place]) Disposition: Return to [facility] Transportation: Facility van to transport. All orders, signed AVS, and prescriptions have been faxed All DC paperwork completed Patient and family in agreement with transfer Medicare important message signed and copy in chart PEDRO PARTIDA RN Jose Maria Grimes MD - 02/02/2015 3:22 PM PDTFormatting of this note might be different from armando e original. Progress Notes by Jose Maria Espinal MD at 02/02/15 152 Author: Jose Maria Espinal MD Service: Hospitalist Author Type: Physician Filed: 02/03/15899 Date of Service: 02/02/151521 Status: Signed Refrigerating Engineer Head: Jose Maria Espinal MD (Physician) Related Notes: Original Note by Jose Maria Espinal MD (Physician) filed at 02/02/15 1950 [facility]: Hospitalist Progress Note Pt: Cole Ernst AGE/SEX: 69 y.o. female : 1945 ROOM: [facility] History of Present Illness: " The patient is a 69 y.o. female with significant past medical history of liver transplant int he 90s on cyclosporine and imuran, chronic pain on methadone, CKD st 3, chronic home O2 of unclear etiology from 2-4 lp, Presented as a transfer from [facility] in [place] for fever of 101 and altered mental s tatus. She was discharged from [facility] on 01/09/15 for elevated troponin and acute on chronic r enal failure. She had a stress test which was negative. Elevated troponin deemed due to dem and ischemia and renal failure. She was treated medically, with renal failure resolved comp letely. She was on rocephin for UTI but urine cultures were negative. She was discharged to SNF wit h no antibiotics. She was brought back in to [facility] for fever and confusion. UA and CXR reportedly negative there. SBP was 90s. She had formed stool there but en route here she did develop watery stool, tested C diff + here. "....per admitting MD/Dr. Smith TODAY'S DATE: 02/02/2015 Hospital Day: LOS: 5 days SUBJECTIVE: 01/29/15: The patient denies any abdominal pain. She continues to have loose and frequent bow el movements. Denies any fever or chills or diaphoresis. When I examined the patient's abdom en, she had some discomfort in the left lower quadrant without guarding or rebound. 01/30/15: She feels better with less diarrhea or liquid bowel movements and more formed stoo ls, still quite frequent. Decreased left lower quadrant abdominal discomfort. Remains hemody namically stable. Afebrile. White blood cell count has decreased to 15,000 from 18,470 on ad mission. 01/31/2015: The patient is feeling much better today. Decreased frequency of bowel movements and more firm stool consistency. White blood cell count has normalized now with WBC's of 18 ,300 (18,900 yesterday on January 30, 2015 and 17,940 on January 29, 2015). 02/01/2015: The patient is doing relatively well today. Frequency of bowel movements has dec reased, but still persistent and elevated. White blood cell count down to 8.36. Some residua l left lower quadrant discomfort present on examination. Recurrent hypomagnesemia requiring IV replacement with IV magnesium sulfate. Case management establishing [facility] [place] [facility] patient in the next 24 to 48 hours. 02/02/2015: Surprisingly, the patient had no bowel movement today. Residual left lower quadr ant abdominal pain. Tolerating diet. Review of Systems: Review of Systems Constitutional: Negative for fever and chills. HENT: Negative for ear pain, hearing loss and tinnitus. Eyes: Negative for blurred vision, double vision, photophobia and redness. Respiratory: Negative for cough and hemoptysis. Cardiovascular: Negative for chest pain, palpitations, orthopnea and PND. Gastrointestinal: Positive for abdominal pain and diarrhea. Negative for heartburn, nausea, vomiting, constipation, blood in stool and melena. Genitourinary: Negative for dysuria, urgency, frequency, hematuria and flank pain. Musculoskeletal: Negative for myalgias. Skin: Negative for itching. Neurological: Negative for dizziness, tingling, tremors, focal weakness, seizures, loss of consciousness, weakness and headaches. Endo/Heme/Allergies: Negative for polydipsia. Psychiatric/Behavioral: Negative for depression, suicidal ideas and substance abuse. Scheduled Medications aspirin EC 81 mg Oral Daily with breakfast azaTHIOprine 50 mg Oral Daily cholecalciferol 2,000 Units Oral Daily cycloSPORINE 75 mg Oral BID fluticasone 1 spray Each Nare Daily gabapentin 400 mg Oral BID heparin (porcine) 5000 unit/0.5mL 5,000 Units Subcutaneous Q8H lactobacillus 1 packet Oral BID levothyroxine 125 mcg Oral QAM AC metoprolol 100 mg Oral BID vancomycin 250 mg Oral Q6H Continuous Infusions PRN Medications aluminum-magnesium hydroxide-simethicone, HYDROcodone-acetaminophen, HYDROmorphone, magnesi um sulfate OR magnesium sulfate OR magnesium sulfate, polyethylene glycol, potassium chloride OR potassium chloride OR potassium chloride OR potassium chloride OR potassium chloride OR potassium chloride Allergy: Allergies Allergen Reactions Codeine Nausea and Vomiting OBJECTIVE Vitals: Patient Vitals for the past 24 hrs: BP Temp Temp src Pulse Resp SpO2 02/02/15 1216 150/75 mmHg 98.5 F (36.9 C) Oral 67 16 97 % 02/02/15 0753 160/88 mmHg 98.3 F (36.8 C) Oral 73 16 93 % 02/02/15 0338 134/64 mmHg 98 F (36.7 C) Oral 69 16 97 % 02/01/15 2255 133/63 mmHg 97.3 F (36.3 C) Oral 74 18 - 02/01/15 1952 175/76 mmHg 98.3 F (36.8 C) Oral 77 16 96 % 02/01/15 1546 178/81 mmHg 98.8 F (37.1 C) Oral 73 16 95 % I&O Detailed Table: Intake/Output Summary (Last 24 hours) at 02/02/15 1522 Last data filed at 02/02/15 1321 Gross per 24 hour Intake 850 ml Output 2125 ml Net -1275 ml Patient Vitals for the past 96 hrs: Weight 02/01/15 0310 97.5 kg (214 lb 15.2 oz) 01/31/15 0444 96.1 kg (211 lb 13.8 oz) Hemodynamics Last 24hrs: Examination: Physical Exam Constitutional: She is oriented to person, place, and time. She appears well-developed. No distress. Elevation of bMI HENT: Head: Normocephalic. Mouth/Throat: Oropharynx is clear and moist. No oropharyngeal exudate. Eyes: Pupils are equal, round, and reactive to light. No scleral icterus. Neck: Normal range of motion. Cardiovascular: Normal rate and regular rhythm. Murmur heard. Pulmonary/Chest: Effort normal and breath sounds normal. No stridor. No respiratory distres s. She has no wheezes. Abdominal: She exhibits no abdominal bruit. Bowel sounds are increased. Genitourinary: No vaginal discharge found. Musculoskeletal: She exhibits no edema or tenderness. Neurological: She is alert and oriented to person, place, and time. Skin: Skin is warm and dry. No rash noted. She is not diaphoretic. No erythema. There is pa llor. Psychiatric: She has a normal mood and affect. Her behavior is normal. LABS: Recent Labs Lab 02/02/15 0317 02/01/15 0326 01/31/15 0437 WBC 8.59 8.36 10.30 HGB 9.7* 9.4* 9.7* HCT 29.6* 29.1* 29.9* PLT 181 174 162 Recent Labs Lab 02/02/15 1412 02/02/15 0317 02/01/15 0326 01/31/15 0437 NA -- 138 137 139 K 3.7 3.2* 3.8 4.2 CL -- 103 111* 112* CO2 -- 31 25 27 BUN -- 10 13 19 CREATININE -- 0.83 0.74 1.01* PROT -- 6.2* 5.9* 5.9* BILITOT -- 0.5 0.4 0.3 ALT -- 15 14 14 AST -- 35 23 24 Phosphorus: Recent Labs Lab 02/02/15316 PHOS 2.9 Recent Labs Lab 02/02/15 1412 02/02/15 0317 02/01/15 0326 MG 1.7 1.3* 1.4* Recent Labs Lab 01/28/15 1447 TSH 1.71 Recent Labs Lab 01/28/15 1447 CKTOTAL 266* TROPONINI 0.083 CKMBINDEX 0.4 Diagnostic: Ct Abdomen Pelvis Without Contrast 01/14/2015 HISTORY: 69 year-old female with abdominal pain TECHNIQUE: CT through the abdo men and pelvis. Performed without the administration of IV contrast. Examination performed w ith enteric contrast. Prior study for comparison: None FINDINGS: Television Agent 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 deg enerative changes of [...] Myocardial Perfusion Spect (stress And Rest) 01/18/2015 [facility] 1945 [place] MYOCARDIAL PERFUSION SPECT - STRESS AND REST 01/18 2:28 PM INDICATION: Elevation of troponin, chest pain COMPARISON: None. TECHNIQUE: A same day, rest and stress protocol was performed. For the resting portion of the study th e patient was injected intravenously with 10 mCi of technetium 99m labeled Myoview. Gated S PECT imaging was performed in the supine position. The patient was then pharmacologically s tressed with 0.4 mg of regadenoson intravenously according to protocol. Resting heart rate deedee from 69 beats/min to 88 beats/min which was 58% of the maximum age-predicted heart rate . At the point of maximum stress, the patient received 40 mCi of technetium 99m labeled Zoltan view intravenously. Gated SPECT images were acquired in the supine position. FINDINGS: The re are no fixed or reversible perfusion defects present between rest and stress imaging in t he supine position. Normal wall thickening of the left ventricle is demonstrated. There appe ars to be diminished wall motion along the inferior septum. There is mild elevation of the t ransient ischemic dilatation ratio. The following functional data was obtained: End-diastol ic volume: 50 mL End-systolic volume: 20 mL Ejection fraction: 61% 01/18/2015 1. Normal myocardial perfusion study. 2. No evidence of pharmacologic stress induced ischemia or infarct. 3. Mild decreased wall motion of the inferior septum. 4. Left ventricular ejection fraction is calculated at 61%. Xr Chest 1 View 01/28/2015 [facility] 1945 69 years XR CHEST 1 VIEW 01/28/2015 2:40 PM INDICATION : Shortness of breath and fever COMPARISON: 01/14/2015 TECHNIQUE: Chest 1 view, AP view of the chest FINDINGS: Lung volumes are markedly diminished from the previous exam. There is no pneumothorax noted. The cardiac silhouette is unchanged in appearance from prior study. C holecystectomy clips are seen in the right upper quadrant. Multiple surgical clips are prese nt along the epigastrium secondary to previous splenectomy. Increasing perihilar opacities a re noted which is felt to reflect atelectasis. The pulmonary markings are normal in caliber. 01/28/2015 1. Diminished lung volumes from prior study with increasing probable perihilar atelectasis. Pneumonia cannot be excluded due to the low lung volumes. Electronically arpita d by Chang Gar MD on 01/28/2015 2:44 PM Xr Chest 1 View 01/14/2015 HISTORY: [...] Date of : 1945 Performing Physician: Gil Martines MD ------REPORT ADDENDED------ INDICATIONS abnormal ekg CONCL [...] LA/Ao: 1.57 D-E Excursion: 2.11 cm E-F Grainger: 0.09 m/s EPSS: 0.48 cm HR: 77.41 [...] TV A Billy: 0.66 m/s TV Dec Grainger: 4.36 m/s2 TV Dec Time: 184.41 ms TV E Billy: 0.80 m/s TV E/A Rat io: 1.21 Punchboard Assembler: NEDRA Authenticated by: Gil Martines MD Report Date/Time: 01-15 09:12:05 01/15/2015 1. Indication for study and thus clinical question is unknown. Minor irregulari ties as below. End Colonoscopy Imaging 01/17/2015 This is a non-reportable procedure without a radiologist report and is used fo image storage only. Please review the GI encounter notes for details on the procedure. Past Medical History Diagnosis Date Stroke (HCC) Hyperlipidemia Hypertension Past Surgical History Procedure Laterality Date Liver transplant 192 Gallbladder surgery 1992 Splenectomy Colonoscopy N/A 01/17/2015 Procedure: COLONOSCOPY; Surgeon: Juan Ramey MD; Location: [facility]; Service: Gastroenterology; Laterality: N/A; PROBLEM LIST Principal Problem: Intestinal infection due to Clostridium difficile Active Problems: Liver replaced by transplant (HCC) Essential hypertension, benign Dyslipidemia Anemia Hypothyroidism CKD (chronic kidney disease), stage III Other severe protein-calorie malnutrition (HCC) Feve ASSESSMENT & PLAN 69-year-old female with the followin. Intestinal infection secondary to Clostridium difficile. Continue oral vancomycin, day # 5 of treatment. White blood cell count down. Abdominal discomfort just residual in the left lower quadrant. Tolerating diet, having no nausea or vomiting. Possible discharge in the nex t 24 to 48 hours. 2. History of previous liver transplant - continue immunosuppressive therapy as currently i s being done. Normal liver function test on sequential checks. 3. Acute on chronic kidney disease, stage 3. Creatinine level has normalized with judicious IV fluids initially and now patient is able to take in adequate amounts of hydration to feroz ntain renal function. Creatinine today is 0.83. 4. Dyslipidemia: Statin on hold for now. 5. Hypothyroidism: Continue levothyroxine. 6. History of severe protein malnutrition: Continue nutritional supplements. 7. History of hypertension: Continue metoprolol. Systolic blood pressure in 130 to 160 rang e. 8. DVT prophylaxis: SCDs and subcutaneous heparin. Jose Maria Espinal MD 02/02/2015 3:22 PM Jose Maria Horne MD - 02/01/2015 5:17 PM PDT Progress Notes by Jose Maria Espinal MD at 02/01/15 7949 Author: Jose Maria Espinal MD Service: Hospitalist Author Type: Physician Filed: 02/02/15 1522 Date of Service: 02/01/151716 Status: Signed Refrigerating Engineer Head: Jose Maria Espinal MD (Physician) Related Notes: Original Note by Jose Maria Espinal MD (Physician) filed at 02/02/15 1308 [facility] Service: Hospitalist Progress Note Pt: Cole Ernst AGE/SEX: 69 y.o. female : 1945 ROOM: [address] [place] [address] History of Present Illness: " The patient is a 69 y.o. female with significant past medical history of liver transplant int he 90s on cyclosporine and imuran, chronic pain on methadone, CKD st 3, chronic home O2 of unclear etiology from 2-4 lpm, Presented as a transfer from [facility] for fever of 101 and altered mental s tatus. She was discharged from [facility] on 01/09/15 for elevated troponin and acute on chronic r enal failure. She had a stress test which was negative. Elevated troponin deemed due to dem and ischemia and renal failure. She was treated medically, with renal failure resolved comp letely. She was on rocephin for UTI but urine cultures were negative. She was discharged to SNF wit h no antibiotics. She was brought back in to [facility] for fever and confusion. UA and CXR reportedly negative there. SBP was 90s. She had formed stool there but en route here she did develop watery stool, tested C diff + here. "....per admitting MD/Dr. Smith TODAY'S DATE: 02/01/2015 Hospital Day: LOS: 4 days SUBJECTIVE: 01/29/15: The patient denies any abdominal pain. She continues to have loose and frequent bow el movements. Denies any fever or chills or diaphoresis. When I examined the patient's abdom en, she had some discomfort in the left lower quadrant without guarding or rebound. 01/30/15: She feels better with less diarrhea or liquid bowel movements and more formed stoo ls, still quite frequent. Decreased left lower quadrant abdominal discomfort. Remains hemody namically stable. Afebrile. White blood cell count has decreased to 15,000 from 18,470 on ad mission. 01/31/2015: The patient is feeling much better today. Decreased frequency of bowel movements and more firm stool consistency. White blood cell count has normalized now with WBC's of 18 ,300 (18,900 yesterday on January 30, 2015 and 17,940 on January 29, 2015). 02/01/2015: The patient is doing relatively well today. Frequency of bowel movements has dec reased, but still persistent and elevated. White blood cell count down to 8.36. Some residua l left lower quadrant discomfort present on examination. Recurrent hypomagnesemia requiring IV replacement with IV magnesium sulfate. Case management establishing readiness of the faci lity in [place] to accept the patient in the next 24 to 48 hours. Review of Systems: Review of Systems Constitutional: Negative for fever and chills. HENT: Negative for ear pain, hearing loss and tinnitus. Eyes: Negative for blurred vision, double vision, photophobia and redness. Respiratory: Negative for cough and hemoptysis. Cardiovascular: Negative for chest pain, palpitations, orthopnea and PND. Gastrointestinal: Positive for abdominal pain and diarrhea. Negative for heartburn, nausea, vomiting, constipation, blood in stool and melena. Genitourinary: Negative for dysuria, urgency, frequency, hematuria and flank pain. Musculoskeletal: Negative for myalgias. Skin: Negative for itching. Neurological: Negative for dizziness, tingling, tremors, focal weakness, seizures, loss of consciousness, weakness and headaches. Endo/Heme/Allergies: Negative for polydipsia. Psychiatric/Behavioral: Negative for depression, suicidal ideas and substance abuse. Scheduled Medications aspirin EC 81 mg Oral Daily with breakfast azaTHIOprine 50 mg Oral Daily cholecalciferol 2,000 Units Oral Daily cycloSPORINE 75 mg Oral BID fluticasone 1 spray Each Nare Daily gabapentin 400 mg Oral BID heparin (porcine) 5000 unit/0.5mL 5,000 Units Subcutaneous Q8H lactobacillus 1 packet Oral BID levothyroxine 125 mcg Oral QAM AC metoprolol 100 mg Oral BID vancomycin 250 mg Oral Q6H Continuous Infusions PRN Medications aluminum-magnesium hydroxide-simethicone, HYDROcodone-acetaminophen, HYDROmorphone, magnesi um sulfate OR magnesium sulfate OR magnesium sulfate, polyethylene glycol, potassium chloride OR potassium chloride OR potassium chloride OR potassium chloride OR potassium chloride OR potassium chloride Allergy: Allergies Allergen Reactions Codeine Nausea and Vomiting OBJECTIVE Vitals: Patient Vitals for the past 24 hrs: BP Temp Temp src Pulse Resp SpO2 Weight 02/01/15 1546 178/81 mmHg 98.8 F (37.1 C) Oral 73 16 95 % - 02/01/15 1243 156/82 mmHg 96.6 F (35.9 C) Oral 62 16 98 % - 02/01/15 0810 146/75 mmHg 98.3 F (36.8 C) Oral 68 16 95 % - 02/01/15 0310 127/59 mmHg 97.9 F (36.6 C) - 66 16 97 % 97.5 kg (214 lb 15.2 oz) 01/31/15 2330 132/68 mmHg 96.4 F (35.8 C) Temporal 65 16 99 % - 09/11/15 2026 156/71 mmHg - - 71 - - - 01/31/15 192 174/85 mmHg 98.4 F (36.9 C) Oral 72 18 94 % - I&O Detailed Table: Intake/Output Summary (Last 24 hours) at 02/01/15 1717 Last data filed at 02/01/15 1407 Gross per 24 hour Intake 4447 ml Output 2300 ml Net 2147 ml Patient Vitals for the past 96 hrs: Weight 02/01/15 0310 97.5 kg (214 lb 15.2 oz) 01/31/15 0444 96.1 kg (211 lb 13.8 oz) Hemodynamics Last 24hrs: Examination: Physical Exam Constitutional: She is oriented to person, place, and time. She appears well-developed. No distress. Elevation of bMI HENT: Head: Normocephalic. Mouth/Throat: Oropharynx is clear and moist. No oropharyngeal exudate. Eyes: Pupils are equal, round, and reactive to light. No scleral icterus. Neck: Normal range of motion. Cardiovascular: Normal rate and regular rhythm. Murmur heard. Pulmonary/Chest: Effort normal and breath sounds normal. No stridor. No respiratory distres s. She has no wheezes. Abdominal: She exhibits no abdominal bruit. Bowel sounds are increased. Genitourinary: No vaginal discharge found. Musculoskeletal: She exhibits no edema or tenderness. Neurological: She is alert and oriented to person, place, and time. Skin: Skin is warm and dry. No rash noted. She is not diaphoretic. No erythema. There is pa llor. Psychiatric: She has a normal mood and affect. Her behavior is normal. LABS: Recent Labs Lab 02/01/1532501/31/1543601/30/15 0542 WBC 8.36 10.30 15.91* HGB 9.4* 9.7* 10.2* HCT 29.1* 29.9* 31.6* PLT 174 162 146* Recent Labs Lab 02/01/1532501/31/1543601/30/15 0542 NA 137 139 137 K 3.8 4.2 3.9 CL 111* 112* 109 CO2 25 27 24 BUN 13 19 25 CREATININE 0.74 1.01* 1.39* PROT 5.9* 5.9* 6.1* BILITOT 0.4 0.3 0.4 ALT 14 14 14 AST 23 24 29 Phosphorus: Recent Labs Lab 02/01/15 0326 PHOS 2.6 Recent Labs Lab 02/01/15 0326 01/31/15 0437 01/30/15 0542 MG 1.4* 1.6* 1.9 Recent Labs Lab 01/28/15 1447 TSH 1.71 Recent Labs Lab 01/28/15 1447 CKTOTAL 266* TROPONINI 0.083 CKMBINDEX 0.4 Diagnostic: Ct Abdomen Pelvis Without Contrast 01/14/2015 HISTORY: 69 year-old female with abdominal pain TECHNIQUE: CT through the abdo men and pelvis. Performed without the administration of IV contrast. Examination performed w ith enteric contrast. Prior study for comparison: None FINDINGS: Television Agent 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 deg enerative changes of [...] Myocardial Perfusion Spect (stress And Rest) 01/18/2015 COLE ERNST 1945 [place] MYOCARDIAL PERFUSION SPECT - STRESS AND REST 01/18 2:28 PM INDICATION: Elevation of troponin, chest pain COMPARISON: None. TECHNIQUE: A same day, rest and stress protocol was performed. For the resting portion of the study th e patient was injected intravenously with 10 mCi of technetium 99m labeled Myoview. Gated S PECT imaging was performed in the supine position. The patient was then pharmacologically s tressed with 0.4 mg of regadenoson intravenously according to protocol. Resting heart rate deedee from 69 beats/min to 88 beats/min which was 58% of the maximum age-predicted heart rate . At the point of maximum stress, the patient received 40 mCi of technetium 99m labeled Zoltan view intravenously. Gated SPECT images were acquired in the supine position. FINDINGS: The re are no fixed or reversible perfusion defects present between rest and stress imaging in t he supine position. Normal wall thickening of the left ventricle is demonstrated. There appe ars to be diminished wall motion along the inferior septum. There is mild elevation of the t ransient ischemic dilatation ratio. The following functional data was obtained: End-diastol ic volume: 50 mL End-systolic volume: 20 mL Ejection fraction: 61% 01/18/2015 1. Normal myocardial perfusion study. 2. No evidence of pharmacologic stress induced ischemia or infarct. 3. Mild decreased wall motion of the inferior septum. 4. Left ventricular ejection fraction is calculated at 61%. Xr Chest 1 View 01/28/2015 COLE ERNST 1945 69 years XR CHEST 1 VIEW 01/28/2015 2:40 PM INDICATION : Shortness of breath and fever COMPARISON: 01/14/2015 TECHNIQUE: Chest 1 view, AP view of the chest FINDINGS: Lung volumes are markedly diminished from the previous exam. There is no pneumothorax noted. The cardiac silhouette is unchanged in appearance from prior study. C holecystectomy clips are seen in the right upper quadrant. Multiple surgical clips are prese nt along the epigastrium secondary to previous splenectomy. Increasing perihilar opacities a re noted which is felt to reflect atelectasis. The pulmonary markings are normal in caliber. 01/28/2015 1. Diminished lung volumes from prior study with increasing probable perihilar atelectasis. Pneumonia cannot be excluded due to the low lung volumes. Electronically arpita d by Chang Gar MD on 01/28/2015 2:44 PM Xr Chest 1 View 01/14/2015 HISTORY: [...] Date of : 1945 Performing Physician: Gil Martines MD ------REPORT ADDENDED------ INDICATIONS abnormal ekg CONCL [...] LA/Ao: 1.57 D-E Excursion: 2.11 cm E-F Grainger: 0.09 m/s EPSS: 0.48 cm HR: 77.41 [...] TV A Billy: 0.66 m/s TV Dec Grainger: 4.36 m/s2 TV Dec Time: 184.41 ms TV E Billy: 0.80 m/s TV E/A Rat io: 1.21 Punchboard Assembler: NEDRA Authenticated by: Gil Martines MD Report Date/Time: 01-15 09:12:05 01/15/2015 1. Indication for study and thus clinical question is unknown. Minor irregulari ties as below. End Colonoscopy Imaging 01/17/2015 This is a non-reportable procedure without a radiologist report and is used fo image storage only. Please review the GI encounter notes for details on the procedure. Past Medical History Diagnosis Date Stroke (HCC) Hyperlipidemia Hypertension Past Surgical History Procedure Laterality Date Liver transplant 192 Gallbladder surgery 1991 Splenectomy Colonoscopy N/A 01/17/2015 Procedure: COLONOSCOPY; Surgeon: Juan Ramey MD; Location: [facility]; Service: Gastroenterology; Laterality: N/A; PROBLEM LIST Principal Problem: Intestinal infection due to Clostridium difficile Active Problems: Liver replaced by transplant (HCC) Essential hypertension, benign Dyslipidemia Anemia Hypothyroidism CKD (chronic kidney disease), stage III Other severe protein-calorie malnutrition (HCC) Feve ASSESSMENT & PLAN 69-year-old female with the followin. Intestinal infection secondary to Clostridium difficile. Continue oral vancomycin, day # 4 of treatment. White blood cell count has decreased to normal. Frequency of bowel movements is decreasing along with more formed stools. Continue current therapy. Possible discharge i n 48 hours. 2. History of previous liver transplant. Continue immunosuppressive therapy with azathiopri ne and cyclosporin. Currently with normal liver function tests. 3. [id number] liver disease, stage III. Creatinine level has improved significantly s lisa admission and judicious intravenous fluid hydration. Creatinine level is 0.74. 4. Dyslipidemia: Statin on hold for now. 5. Hypothyroidism: Continue levothyroxine. 6. History of severe protein calorie malnutrition. Continue nutritional supplements. 7. History of hypertension: Continue metoprolol. 8. Deep venous thrombosis prophylaxis: SCD's and subcutaneous heparin. Jose Maria Espinal MD 02/01/2015 5:17 PM Jose Maria Horne MD - 01/31/2015 3:14 PM PDT Progress Notes by Jose Maria Espinal MD at 01/31/15 1514 Author: Jose Maria Espinal MD Service: Hospitalist Author Type: Physician Filed: 01/31/152124 Date of Service: 01/31/151513 Status: Signed Refrigerating Engineer Head: Jose Maria Espinal MD (Physician) Related Notes: Original Note by Jose Maria Espinal MD (Physician) filed at 01/31/15 1523 [facility]: Hospitalist Progress Note Pt: Cole Ernst AGE/SEX: 69 y.o. female : 1945 ROOM: [address] [place] [address]1 History of Present Illness: " The patient is a 69 y.o. female with significant past medical history of liver transplant int he 90s on cyclosporine and imuran, chronic pain on methadone, CKD st 3, chronic home O2 of unclear etiology from 2-4 lpm, Presented as a transfer from [facility] in [place] for fever of 101 and altered mental s tatus. She was discharged from [facility] on 01/09/15 for elevated troponin and acute on chronic r enal failure. She had a stress test which was negative. Elevated troponin deemed due to dem and ischemia and renal failure. She was treated medically, with renal failure resolved comp letely. She was on rocephin for UTI but urine cultures were negative. She was discharged to SNF wit h no antibiotics. She was brought back in to [facility] for fever and confusion. UA and CXR reportedly negative there. SBP was 90s. She had formed stool there but en route here she did develop watery stool, tested C diff + here. "....per admitting MD/Dr. Smith TODAY'S DATE: 01/31/2015 Hospital Day: LOS: 3 days SUBJECTIVE: 01/29/15: The patient denies any abdominal pain. She continues to have loose and frequent bow el movements. Denies any fever or chills or diaphoresis. When I examined the patient's abdom en, she had some discomfort in the left lower quadrant without guarding or rebound. 01/30/15: She feels better with less diarrhea or liquid bowel movements and more formed stoo ls, still quite frequent. Decreased left lower quadrant abdominal discomfort. Remains hemody namically stable. Afebrile. White blood cell count has decreased to 15,000 from 18,470 on ad mission. 01/31/2015: The patient is feeling much better today. Decreased frequency of bowel movements and more firm stool consistency. White blood cell count has normalized now with WBC's of 18 ,300 (18,900 yesterday on January 30, 2015 and 17,940 on January 29, 2015). Review of Systems: Review of Systems Constitutional: Negative for fever and chills. HENT: Negative for ear pain, hearing loss and tinnitus. Eyes: Negative for blurred vision, double vision, photophobia and redness. Respiratory: Negative for cough and hemoptysis. Cardiovascular: Negative for chest pain, palpitations, orthopnea and PND. Gastrointestinal: Positive for abdominal pain and diarrhea. Negative for heartburn, nausea, vomiting, constipation, blood in stool and melena. Genitourinary: Negative for dysuria, urgency, frequency, hematuria and flank pain. Musculoskeletal: Negative for myalgias. Skin: Negative for itching. Neurological: Negative for dizziness, tingling, tremors, focal weakness, seizures, loss of consciousness, weakness and headaches. Endo/Heme/Allergies: Negative for polydipsia. Psychiatric/Behavioral: Negative for depression, suicidal ideas and substance abuse. Scheduled Medications aspirin EC 81 mg Oral Daily with breakfast azaTHIOprine 50 mg Oral Daily cholecalciferol 2,000 Units Oral Daily cycloSPORINE 75 mg Oral BID fluticasone 1 spray Each Nare Daily gabapentin 400 mg Oral BID heparin (porcine) 5000 unit/0.5mL 5,000 Units Subcutaneous Q8H lactobacillus 1 packet Oral BID levothyroxine 125 mcg Oral QAM AC metoprolol 100 mg Oral BID vancomycin 250 mg Oral Q6H Continuous Infusions sodium chloride (IV) 125 mL/hr at 01/31/15 1033 PRN Medications aluminum-magnesium hydroxide-simethicone, HYDROcodone-acetaminophen, HYDROmorphone, magnesi um sulfate OR magnesium sulfate OR magnesium sulfate, polyethylene glycol, potassium chloride OR potassium chloride OR potassium chloride OR potassium chloride OR potassium chloride OR potassium chloride Allergy: Allergies Allergen Reactions Codeine Nausea and Vomiting OBJECTIVE Vitals: Patient Vitals for the past 24 hrs: BP Temp Temp src Pulse Resp SpO2 Weight 01/31/15 1513 158/76 mmHg 98.2 F (36.8 C) Oral 68 16 96 % - 01/31/15 1315 147/70 mmHg 98.4 F (36.9 C) Oral 60 18 97 % - 01/31/15 0811 139/77 mmHg 97.7 F (36.5 C) Axillary 69 18 96 % - 01/31/15 0444 137/73 mmHg 98.2 F (36.8 C) Oral 62 18 93 % 96.1 kg (211 lb 13.8 oz) 01/31/15 0005 118/59 mmHg - Oral 70 18 98 % - 01/30/157 - - - 68 - - - 01/30/152018 132/61 mmHg 98.6 F (37 C) Oral 74 18 97 % - I&O Detailed Table: Intake/Output Summary (Last 24 hours) at 01/31/15 1515 Last data filed at 01/31/15 0943 Gross per 24 hour Intake 3010 ml Output 300 ml Net 2710 ml Patient Vitals for the past 96 hrs: Weight 01/31/15 0444 96.1 kg (211 lb 13.8 oz) 01/28/15 1500 95.5 kg (210 lb 8.6 oz) Hemodynamics Last 24hrs: Examination: Physical Exam Constitutional: She is oriented to person, place, and time. She appears well-developed. No distress. Elevation of bMI HENT: Head: Normocephalic. Mouth/Throat: Oropharynx is clear and moist. No oropharyngeal exudate. Eyes: Pupils are equal, round, and reactive to light. No scleral icterus. Neck: Normal range of motion. Cardiovascular: Normal rate and regular rhythm. Murmur heard. Pulmonary/Chest: Effort normal and breath sounds normal. No stridor. No respiratory distres s. She has no wheezes. Abdominal: She exhibits no abdominal bruit. Bowel sounds are increased. Genitourinary: No vaginal discharge found. Musculoskeletal: She exhibits no edema or tenderness. Neurological: She is alert and oriented to person, place, and time. Skin: Skin is warm and dry. No rash noted. She is not diaphoretic. No erythema. There is pa llor. Psychiatric: She has a normal mood and affect. Her behavior is normal. LABS: Recent Labs Lab 01/31/1543601/30/1554101/29/15 190 WBC 10.30 15.91* 17.94* HGB 9.7* 10.2* 10.8* HCT 29.9* 31.6* 33.7* PLT 162 146* 153 Recent Labs Lab 01/31/1543601/30/15 0542 01/29/15 1900 01/29/15 0435 NA 139 137 142 137 K 4.2 3.9 3.8 4.4 CL 112* 109 107 106 CO2 27 24 26 24 BUN 19 25 28* 22 CREATININE 1.01* 1.39* 1.8* 1.9* PROT 5.9* 6.1* -- 6.5 BILITOT 0.3 0.4 -- 0.5 ALT 14 14 -- 23 AST 24 29 -- 41 Phosphorus: Recent Labs Lab 01/31/15 0437 PHOS 2.1* Recent Labs Lab 01/31/15 0437 01/30/15 0542 01/29/15 0435 MG 1.6* 1.9 1.8 Recent Labs Lab 01/28/15 1447 TSH 1.71 Recent Labs Lab 01/28/15 1447 CKTOTAL 266* TROPONINI 0.083 CKMBINDEX 0.4 Diagnostic: Ct Abdomen Pelvis Without Contrast 01/14/2015 HISTORY: 69 year-old female with abdominal pain TECHNIQUE: CT through the abdo men and pelvis. Performed without the administration of IV contrast. Examination performed w ith enteric contrast. Prior study for comparison: None FINDINGS: Television Agent 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 deg enerative changes of [...] or extraluminal fluid collection Electronically signed by Gayr Wong MD on 10:11 PM Nm Myocardial Perfusion Spect (stress And Rest) 01/18/2015 COLE ERNST 1945 [place] MYOCARDIAL PERFUSION SPECT - STRESS AND REST 01/18 2:28 PM INDICATION: Elevation of troponin, chest pain COMPARISON: None. TECHNIQUE: A same day, rest and stress protocol was performed. For the resting portion of the study th e patient was injected intravenously with 10 mCi of technetium 99m labeled Myoview. Gated S PECT imaging was performed in the supine position. The patient was then pharmacologically s tressed with 0.4 mg of regadenoson intravenously according to protocol. Resting heart rate deedee from 69 beats/min to 88 beats/min which was 58% of the maximum age-predicted heart rate . At the point of maximum stress, the patient received 40 mCi of technetium 99m labeled Zoltan view intravenously. Gated SPECT images were acquired in the supine position. FINDINGS: The re are no fixed or reversible perfusion defects present between rest and stress imaging in t he supine position. Normal wall thickening of the left ventricle is demonstrated. There appe ars to be diminished wall motion along the inferior septum. There is mild elevation of the t ransient ischemic dilatation ratio. The following functional data was obtained: End-diastol ic volume: 50 mL End-systolic volume: 20 mL Ejection fraction: 61% 01/18/2015 1. Normal myocardial perfusion study. 2. No evidence of pharmacologic stress induced ischemia or infarct. 3. Mild decreased wall motion of the inferior septum. 4. Left ventricular ejection fraction is calculated at 61%. Xr Chest 1 View 01/28/2015 COLETeresa ERNST 1945 69 years XR CHEST 1 VIEW 01/28/2015 2:40 PM INDICATION : Shortness of breath and fever COMPARISON: 01/14/2015 TECHNIQUE: Chest 1 view, AP view of the chest FINDINGS: Lung volumes are markedly diminished from the previous exam. There is no pneumothorax noted. The cardiac silhouette is unchanged in appearance from prior study. C holecystectomy clips are seen in the right upper quadrant. Multiple surgical clips are prese nt along the epigastrium secondary to previous splenectomy. Increasing perihilar opacities a re noted which is felt to reflect atelectasis. The pulmonary markings are normal in caliber. 01/28/2015 1. Diminished lung volumes from prior study with increasing probable perihilar atelectasis. Pneumonia cannot be excluded due to the low lung volumes. Electronically arpita d by Chang Gar MD on 01/28/2015 2:44 PM Xr Chest 1 View 01/14/2015 HISTORY: [...] Date of : 1945 Performing Physician: Gil Martines MD ------REPORT ADDENDED------ INDICATIONS abnormal ekg CONCL [...] LA/Ao: 1.57 D-E Excursion: 2.11 cm E-F Grainger: 0.09 m/s EPSS: 0.48 cm HR: 77.41 [...] TV A Billy: 0.66 m/s TV Dec Grainger: 4.36 m/s2 TV Dec Time: 184.41 ms TV E Billy: 0.80 m/s TV E/A Rat io: 1.21 Punchboard Assembler: NEDRA Authenticated by: Gil Martines MD Report Date/Time: 01-15 09:12:05 01/15/2015 1. Indication for study and thus clinical question is unknown. Minor irregulari ties as below. End Colonoscopy Imaging 01/17/2015 This is a non-reportable procedure without a radiologist report and is used fo r image storage only. Please review the GI encounter notes for details on the procedure. Past Medical History Diagnosis Date Stroke (HCC) Hyperlipidemia Hypertension Past Surgical History Procedure Laterality Date Liver transplant 192 Gallbladder surgery 1992 Splenectomy Colonoscopy N/A 01/17/2015 Procedure: COLONOSCOPY; Surgeon: Juan Ramey MD; Location: [facility]; Service: Gastroenterology; Laterality: N/A; PROBLEM LIST Principal Problem: Intestinal infection due to Clostridium difficile Active Problems: Liver replaced by transplant (HCC) Essential hypertension, benign Dyslipidemia Anemia Hypothyroidism CKD (chronic kidney disease), stage III Other severe protein-calorie malnutrition (HCC) Feve ASSESSMENT & PLAN 69-year-old female with the followin. Intestinal infection most likely secondary to Clostridium difficile. Continue oral vanco mycin with current dose. White blood cell count clinically with the patient having less freq uent bowel movements and more formed stool. Will decrease IV fluids to 75 mL/hour. 2. History of previous liver transplant. Continue immunosuppressive therapy with azathiopri ne 50 mg p.o. daily and cyclosporine 75 mg p.o. b.i.d. Currently normal liver function tests . 3. Acute on chronic kidney disease stage III. Creatinine level has improved significantly w ith judicious IV fluids. Continue with decreased rate of IV fluids. 4. Dyslipidemia, statin on hold for now. 5. Hypothyroidism. Continue levothyroxine. 6. History of severe protein calorie malnutrition. Continue nutritional supplements, dietic mayra consult ordered. 7. History of hypertension. Continue metoprolol. Systolic blood pressure in appropriate ran ge at the present time. 8. DVT prophylaxis. SCDs and subcutaneous heparin. Jose Maria Espinal MD 01/31/2015 3:15 PM onversion Transa ction, Provider Unknown - 01/31/2015 1:13 PM PDT Progress Notes by Catina Moon at 01/31/15 1313 Author: Catina Moon Service: (none) Author Type: Filed: 01/31/15 1313 Date of Service: 01/31/151312 Status: Signed Refrigerating Engineer Head: Catina Mono () Attempted visit. Pt sitting in chair sleeping. No family present. Chaplain Catina Moon onver alessandro Transaction, Provider Unknown - 01/31/2015 11:35 AM PDT Therapy Progress Note by Mahi Yanes PTA at 01/31/15 1135 Author: Mahi Yanes PTA Service: (none) Author Type: Mission Support Specialist Filed: 01/31/15 1410 Date of Service: 01/31/151134 Status: Signed Refrigerating Engineer Head: Mahi Yanes PTA (Mission Support Specialist) 01/31/15 1135 PT Last Visit PT Received On 01/31/15 Reason for Treatment Deconditioning (dx cdiff, hx CHF) Requires PT Follow Up Yes Follow up PT Only? No Assistance Required 1 person Precautions Other Precautions fall precautions Other Comments Comments Pt presented to tx supine in bed with HOB elevated; agreeable to PT. Pt transferre d supine -> sit with SBA and sit -> stand with CGA. Upon standing pt reported that she had t o use the BR, but did not think she could make it to the BR. Pt encouraged to ambulate into RR to use toilet, as opposed to using bedpan. Pt ambulated x 20' with FWW. Pt was able to pe rform william-care without assist. Pt transferred sit -> stand from lower height of toilet with min A. Pt ambulated to bedside so therapist could prep recliner for pt. Pt then transferred into recliner by ambulating to recliner. Pt left sitting up in recliner with call light wit hin reach. Cognition Overall Cognitive Status WFL Orientation Level Oriented Bed Mobility Supine to Sit Standby assist Scooting Standby assist Transfers Sit to/from Stand Minimal assist (steadying/contact guard);Verbal instruction Mobility Ambulation Assistance Standby assist Maximal Ambulation Distance (feet) 20'x2, 4' Total Ambulation Distance (feet) 44' Distance limited by? Patient's ability Pattern Alternating;Decreased thanh Assistive Device Walker front wheeled Activity Tolerance Activity Tolerance Patient limited by fatigue Nurse Made Aware RN Louie aware Plan Treatment/Interventions Continue per Primary PT POC Progress Progressing toward goals Recommendation Recommendations SNF PT recommendations were discussed and verified with supervising PT. onver alessandro Transaction, Provider Unknown - 01/31/2015 10:07 AM PDT Case Management by Gregg Keene MS, RECORDS CLERK at 01/31/15 1007 Author: Gregg Keene, MS, RECORDS CLERK Service: (none) Author Type: Mechanic Foreman Filed: 01/31/15 1546 Date of Service: 01/31/15 1007 Status: Addendum Refrigerating Engineer Head: Gregg Keene , RECORDS CLERK (Mechanic Foreman) Related Notes: Original Note by Gregg Yecenia MS, RECORDS CLERK (Mechanic Foreman) filed at 01/31/15 1007 Discharge planning - CM faxed updated clinical to Gi at [facility]. Discharge form s on front of chart for MD signature. CM notified Gi of anticipated d/c this weekend. onver alessandro Transaction, Provider Unknown - 01/30/2015 5:05 PM PDT Therapy Progress Note by Gail Vernon PT at 01/30/15 1705 Author: Gail Vernon PT Service: (none) Author Type: Physical Therapist Filed: 01/30/15 1498 Date of Service: 01/30/15 1705 Status: Signed Refrigerating Engineer Head: Gail Vernon PT (Physical Therapist) 01/30/15 170 PT Last Visit PT Received On 01/30/15 Reason for Treatment Deconditioning (dx cdiff, hx CHF) Requires PT Follow Up Yes Follow up PT Only? No Focus for Next Treatment Formal Balance Assessment Assistance Required 1 person Other Comments Comments Pt supine in bed when PT arrived and agreeable to therapy. Pt demonstrates good in dependence with bed mobiliity and transferrs. Pt able to ambulate 6 feet from bed to chair w ith VCs to press through B UE to off weight her L foot due to broken toe. Pt reported feelin g much better sitting up in chair. Pt ended session sitting in chair with call light in reac h. Vitals Vitals: Bp 141/67, HR 70, SpO2 97% on 3L Cognition Overall Cognitive Status WFL Orientation Level Oriented Bed Mobility Rolling Independent Supine to Sit Standby assist Sit to Supine Standby assist Transfers Sit to/from Stand Minimal assist (steadying/contact guard) Bed to/from Chair Minimal assist (steadying/contact guard) Mobility Weight Bearing Status WBAT RLE;WBAT LLE Ambulation Assistance Minimal assist;Verbal instruction Maximal Ambulation Distance (feet) 6 Total Ambulation Distance (feet) 6 Distance limited by? Patient's ability Pattern Step to;Decreased thanh;Right swing foot doesn't pass stance foot;Left swing foot doesn't pass stance foot;Forward flexed Assistive Device Walker front wheeled Static Sitting Balance Static Sitting-Balance Support No upper extremity support;Feet supported Static Sitting-Level of Assistance Standby assist Modalities Modalities Other therapy Other Therapy ed pt on safe mobility and the importance of daily mobility to prevent decond itioning and loss of independence. Activity Tolerance Activity Tolerance Patient limited by pain Nurse Made Aware yes Safety Devices Safety Devices in Place (call light in reach) Plan Treatment/Interventions Continue per Primary PT POC Progress Progressing toward goals Recommendation Recommendations SNF PT Ready for Discharge Yes Recommendation Comments Needs return to SNF as pt lives at home alone prior to SNF stay. W ill need f/u on L great toe pn/edema ose Maria Black MD - 01/30/2015 2:14 PM PDTFormatting of this note might be different from armando tellez original. Progress Notes by Jose Maria Espinal MD at 01/30/15 1414 Author: Jose Maria Espinal MD Service: Hospitalist Author Type: Physician Filed: 01/31/15 1403 Date of Service: 01/30/15 1414 Status: Signed Refrigerating Engineer Head: Jose Maria Espinal MD (Physician) Related Notes: Original Note by Jose Maria Espinal MD (Physician) filed at 01/30/15 8918 [facility] Service: Hospitalist Progress Note Pt: Cole Ernst AGE/SEX: 69 y.o. female : 1945 ROOM: 6601/6601-1 History of Present Illness: " The patient is a 69 y.o. female with significant past medical history of liver transplant int he 90s on cyclosporine and imuran, chronic pain on methadone, CKD st 3, chronic home O2 of unclear etiology from 2-4 lpm, Presented as a transfer from [facility] in [place] for fever of 101 and altered mental s tatus. She was discharged from [facility] on 01/09/15 for elevated troponin and acute on chronic r enal failure. She had a stress test which was negative. Elevated troponin deemed due to dem and ischemia and renal failure. She was treated medically, with renal failure resolved comp letely. She was on rocephin for UTI but urine cultures were negative. She was discharged to SNF wit h no antibiotics. She was brought back in to [facility] for fever and confusion. UA and CXR reportedly negative there. SBP was 90s. She had formed stool there but en route here she did develop watery stool, tested C diff + here. "....per admitting MD/Dr. Smith TODAY'S DATE: 01/30/2015 Hospital Day: LOS: 2 days SUBJECTIVE: 01/29/15: The patient denies any abdominal pain. She continues to have loose and frequent bow el movements. Denies any fever or chills or diaphoresis. When I examined the patient's abdom en, she had some discomfort in the left lower quadrant without guarding or rebound. 01/30/15: She feels better with less diarrhea or liquid bowel movements and more formed stoo ls, still quite frequent. Decreased left lower quadrant abdominal discomfort. Remains hemody namically stable. Afebrile. White blood cell count has decreased to 15,000 from 18,470 on ad mission. Review of Systems: Review of Systems Constitutional: Negative for fever and chills. HENT: Negative for ear pain, hearing loss and tinnitus. Eyes: Negative for blurred vision, double vision, photophobia and redness. Respiratory: Negative for cough and hemoptysis. Cardiovascular: Negative for chest pain, palpitations, orthopnea and PND. Gastrointestinal: Positive for abdominal pain and diarrhea. Negative for heartburn, nausea, vomiting, constipation, blood in stool and melena. Genitourinary: Negative for dysuria, urgency, frequency, hematuria and flank pain. Musculoskeletal: Negative for myalgias. Skin: Negative for itching. Neurological: Negative for dizziness, tingling, tremors, focal weakness, seizures, loss of consciousness, weakness and headaches. Endo/Heme/Allergies: Negative for polydipsia. Psychiatric/Behavioral: Negative for depression, suicidal ideas and substance abuse. Scheduled Medications aspirin EC 81 mg Oral Daily with breakfast azaTHIOprine 50 mg Oral Daily cholecalciferol 2,000 Units Oral Daily cycloSPORINE 75 mg Oral BID fluticasone 1 spray Each Nare Daily gabapentin 400 mg Oral BID heparin (porcine) 5000 unit/0.5mL 5,000 Units Subcutaneous Q8H lactobacillus 1 packet Oral BID levothyroxine 125 mcg Oral QAM AC metoprolol 100 mg Oral BID vancomycin 250 mg Oral Q6H Continuous Infusions sodium chloride (IV) 125 mL/hr at 01/30/15 0848 PRN Medications HYDROcodone-acetaminophen, HYDROmorphone, magnesium sulfate OR magnesium sulfate OR magnesium sulfate, polyethylene glycol, potassium chloride OR potassium chloride OR potassium chloride OR potassium chloride OR potassium chloride OR potassium chl oride Allergy: Allergies Allergen Reactions Codeine Nausea and Vomiting OBJECTIVE Vitals: Patient Vitals for the past 24 hrs: BP Temp Temp src Pulse Resp SpO2 01/30/15 1105 125/60 mmHg 98.3 F (36.8 C) Oral 65 18 97 % 01/30/15 1003 111/60 mmHg - - 80 - - 01/30/15 0705 118/57 mmHg 98.3 F (36.8 C) Oral 75 18 94 % 01/30/15 0441 118/62 mmHg 98.5 F (36.9 C) Oral 64 18 94 % 01/29/15 2350 100/55 mmHg 98.4 F (36.9 C) Oral 67 18 96 % 01/29/15 1947 117/59 mmHg 98.8 F (37.1 C) Oral 71 20 96 % 01/29/15 1451 112/56 mmHg 97.9 F (36.6 C) Oral 72 18 97 % I&O Detailed Table: Intake/Output Summary (Last 24 hours) at 01/30/15 1414 Last data filed at 01/30/15 0614 Gross per 24 hour Intake 3016 ml Output 0 ml Net 3016 ml Patient Vitals for the past 96 hrs: Weight 01/28/15 1500 95.5 kg (210 lb 8.6 oz) Hemodynamics Last 24hrs: Examination: Physical Exam Constitutional: She is oriented to person, place, and time. She appears well-developed. No distress. Elevation of bMI HENT: Head: Normocephalic. Mouth/Throat: Oropharynx is clear and moist. No oropharyngeal exudate. Eyes: Pupils are equal, round, and reactive to light. No scleral icterus. Neck: Normal range of motion. Cardiovascular: Normal rate and regular rhythm. Murmur heard. Pulmonary/Chest: Effort normal and breath sounds normal. No stridor. No respiratory distres s. She has no wheezes. Abdominal: She exhibits no abdominal bruit. Bowel sounds are increased. Genitourinary: No vaginal discharge found. Musculoskeletal: She exhibits no edema or tenderness. Neurological: She is alert and oriented to person, place, and time. Skin: Skin is warm and dry. No rash noted. She is not diaphoretic. No erythema. There is pa llor. Psychiatric: She has a normal mood and affect. Her behavior is normal. LABS: Recent Labs Lab 01/30/1554101/29/15189901/29/15434 WBC 15.91* 17.94* 18.47* HGB 10.2* 10.8* 10.8* HCT 31.6* 33.7* 32.7* PLT 146* 153 151 Recent Labs Lab 01/30/1554101/29/15189901/29/1543401/28/15 1447 NA 137 142 137 -- 137 K 3.9 3.8 4.4 -- 3.4* CL 109 107 106 -- 101 CO2 24 26 24 -- 27 BUN 25 28* 22 -- 18 CREATININE 1.39* 1.8* 1.9* < > 1.3* PROT 6.1* -- 6.5 -- 7.9 BILITOT 0.4 -- 0.5 -- 0.6 ALT 14 -- 23 -- 30 AST 29 -- 41 -- 51* < > = values in this interval not displayed. Phosphorus: Recent Labs Lab 01/30/15541 PHOS 2.5 Recent Labs Lab 01/30/1554101/29/1543401/28/15 1447 MG 1.9 1.8 1.1* Recent Labs Lab 01/28/15 1447 TSH 1.71 Recent Labs Lab 01/28/15 144 CKTOTAL 266* TROPONINI 0.083 CKMBINDEX 0.4 Diagnostic: Ct Abdomen Pelvis Without Contrast 01/14/2015 HISTORY: 69 year-old female with abdominal pain TECHNIQUE: CT through the abdo men and pelvis. Performed without the administration of IV contrast. Examination performed w ith enteric contrast. Prior study for comparison: None FINDINGS: Television Agent 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 deg enerative changes of [...] Myocardial Perfusion Spect (stress And Rest) 01/18/2015 COLE ERNST 1945 [place] MYOCARDIAL PERFUSION SPECT - STRESS AND REST 01/18 2:28 PM INDICATION: Elevation of troponin, chest pain COMPARISON: None. TECHNIQUE: A same day, rest and stress protocol was performed. For the resting portion of the study th e patient was injected intravenously with 10 mCi of technetium 99m labeled Myoview. Gated S PECT imaging was performed in the supine position. The patient was then pharmacologically s tressed with 0.4 mg of regadenoson intravenously according to protocol. Resting heart rate deedee from 69 beats/min to 88 beats/min which was 58% of the maximum age-predicted heart rate . At the point of maximum stress, the patient received 40 mCi of technetium 99m labeled Zoltan view intravenously. Gated SPECT images were acquired in the supine position. FINDINGS: The re are no fixed or reversible perfusion defects present between rest and stress imaging in t he supine position. Normal wall thickening of the left ventricle is demonstrated. There appe ars to be diminished wall motion along the inferior septum. There is mild elevation of the t ransient ischemic dilatation ratio. The following functional data was obtained: End-diastol ic volume: 50 mL End-systolic volume: 20 mL Ejection fraction: 61% 01/18/2015 1. Normal myocardial perfusion study. 2. No evidence of pharmacologic stress induced ischemia or infarct. 3. Mild decreased wall motion of the inferior septum. 4. Left ventricular ejection fraction is calculated at 61%. Xr Chest 1 View 01/28/2015 COLETeresa ERNST 1945 69 years XR CHEST 1 VIEW 01/28/2015 2:40 PM INDICATION : Shortness of breath and fever COMPARISON: 01/14/2015 TECHNIQUE: Chest 1 view, AP view of the chest FINDINGS: Lung volumes are markedly diminished from the previous exam. There is no pneumothorax noted. The cardiac silhouette is unchanged in appearance from prior study. C holecystectomy clips are seen in the right upper quadrant. Multiple surgical clips are prese nt along the epigastrium secondary to previous splenectomy. Increasing perihilar opacities a re noted which is felt to reflect atelectasis. The pulmonary markings are normal in caliber. 01/28/2015 1. Diminished lung volumes from prior study with increasing probable perihilar atelectasis. Pneumonia cannot be excluded due to the low lung volumes. Electronically arpita d by Chang Gar MD on 01/28/2015 2:44 PM Xr Chest 1 View 01/14/2015 HISTORY: [...] Date of : 1945 Performing Physician: Gil Martines MD ------REPORT ADDENDED------ INDICATIONS abnormal ekg CONCL [...] LA/Ao: 1.57 D-E Excursion: 2.11 cm E-F Grainger: 0.09 m/s EPSS: 0.48 cm HR: 77.41 [...] TV A Billy: 0.66 m/s TV Dec Grainger: 4.36 m/s2 TV Dec Time: 184.41 ms TV E Billy: 0.80 m/s TV E/A Rat io: 1.21 Punchboard Assembler: NEDRA Authenticated by: Gil Martines MD Report Date/Time: 01-15 09:12:05 01/15/2015 1. Indication for study and thus clinical question is unknown. Minor irregulari ties as below. End Colonoscopy Imaging 01/17/2015 This is a non-reportable procedure without a radiologist report and is used fo r image storage only. Please review the GI encounter notes for details on the procedure. Past Medical History Diagnosis Date Stroke (HCC) Hyperlipidemia Hypertension Past Surgical History Procedure Laterality Date Liver transplant 192 Gallbladder surgery 1991 Splenectomy Colonoscopy N/A 01/17/2015 Procedure: COLONOSCOPY; Surgeon: Juan Ramey MD; Location: [facility]; Service: Gastroenterology; Laterality: N/A; PROBLEM LIST Principal Problem: Intestinal infection due to Clostridium difficile Active Problems: Liver replaced by transplant (HCC) Essential hypertension, benign Dyslipidemia Anemia Hypothyroidism CKD (chronic kidney disease), stage III Other severe protein-calorie malnutrition (HCC) Feve ASSESSMENT & PLAN 69-year-old female with the followin. Interstitial infection was likely secondary to the Clostridium difficile. Continue oral vancomycin with current dose. White blood cell count is gradually decreasing with reduction in frequency of bowel movements as well as consistency, previously noted liquid stools. Cont inue supportive therapy with IV fluids, diet advancement. 2. Previous history of liver transplant. Continue immunosuppressive therapy. Patient's live r functions remain normal. 3. Srycl-ke-syliyyw kidney disease stage III. Creatinine level has improved from 1.8 to 1.3 9 with IV fluids overnight. 4. Dyslipidemia. Statin on hold for now. 5. Hypothyroidism. Continue levothyroxine. 6. Severe protein-calorie malnutrition. Continue nutritional supplements/dietitian consult ordered. 7. DVT prophylaxis. Subcutaneous heparin. 8. History of hypertension. Continue metoprolol. Jose Maria Espinal MD 01/30/2015 2:14 PM Jose Maria Horne MD - 01/29/2015 4:51 PM PDT Progress Notes by Jose Maria Espinal MD at 01/29/15 430 Author: Jose Maria Espinal MD Service: Hospitalist Author Type: Physician Filed: 01/30/15 0957 Date of Service: 01/29/151650 Status: Signed Refrigerating Engineer Head: Jose Maria Espinal MD (Physician) Related Notes: Original Note by Jose Maria Espinal MD (Physician) filed at 01/29/152024 [facility] Service: Hospitalist Progress Note Pt: Cole Ernst AGE/SEX: 69 y.o. female : 1945 ROOM: [address] [place] [address] History of Present Illness: " The patient is a 69 y.o. female with significant past medical history of liver transplant int he 90s on cyclosporine and imuran, chronic pain on methadone, CKD st 3, chronic home O2 of unclear etiology from 2-4 lpm, Presented as a transfer from [facility] in [place] for fever of 101 and altered mental s tatus. She was discharged from [facility] on 01/09/15 for elevated troponin and acute on chronic r enal failure. She had a stress test which was negative. Elevated troponin deemed due to dem and ischemia and renal failure. She was treated medically, with renal failure resolved comp letely. She was on rocephin for UTI but urine cultures were negative. She was discharged to SNF wit h no antibiotics. She was brought back in to [facility] for fever and confusion. UA and CXR reportedly negative there. SBP was 90s. She had formed stool there but en route here she did develop watery stool, tested C diff + here. "....per admitting MD/Dr. Smith TODAY'S DATE: 01/29/2015 Hospital Day: LOS: 1 day SUBJECTIVE: The patient denies any abdominal pain. She continues to have loose and frequen t bowel movements. Denies any fever or chills or diaphoresis. When I examined the patient's abdomen, she had some discomfort in the left lower quadrant without guarding or rebound. Review of Systems: Review of Systems Constitutional: Negative for fever and chills. HENT: Negative for ear pain, hearing loss and tinnitus. Eyes: Negative for blurred vision, double vision, photophobia and redness. Respiratory: Negative for cough and hemoptysis. Cardiovascular: Negative for chest pain, palpitations, orthopnea and PND. Gastrointestinal: Positive for abdominal pain and diarrhea. Negative for heartburn, nausea, vomiting, constipation, blood in stool and melena. Genitourinary: Negative for dysuria, urgency, frequency, hematuria and flank pain. Musculoskeletal: Negative for myalgias. Skin: Negative for itching. Neurological: Negative for dizziness, tingling, tremors, focal weakness, seizures, loss of consciousness, weakness and headaches. Endo/Heme/Allergies: Negative for polydipsia. Psychiatric/Behavioral: Negative for depression, suicidal ideas and substance abuse. Scheduled Medications aspirin EC 81 mg Oral Daily with breakfast azaTHIOprine 50 mg Oral Daily cholecalciferol 2,000 Units Oral Daily cycloSPORINE 75 mg Oral BID fluticasone 1 spray Each Nare Daily gabapentin 400 mg Oral BID heparin (porcine) 5000 unit/0.5mL 5,000 Units Subcutaneous Q8H lactobacillus 1 packet Oral BID levothyroxine 125 mcg Oral QAM AC metoprolol 100 mg Oral BID vancomycin 125 mg Oral Q6H Continuous Infusions PRN Medications HYDROcodone-acetaminophen, HYDROmorphone, magnesium sulfate OR magnesium sulfate OR magnesium sulfate, polyethylene glycol, potassium chloride OR potassium chloride OR potassium chloride OR potassium chloride OR potassium chloride OR potassium chl oride Allergy: Allergies Allergen Reactions Codeine Nausea and Vomiting OBJECTIVE Vitals: Patient Vitals for the past 24 hrs: BP Temp Temp src Pulse Resp SpO2 01/29/15 1451 112/56 mmHg 97.9 F (36.6 C) Oral 72 18 97 % 01/29/15 1104 115/59 mmHg 98.3 F (36.8 C) Oral 72 18 96 % 01/29/15 0705 111/60 mmHg 98.2 F (36.8 C) Oral 66 18 95 % 01/29/15 0259 115/56 mmHg 98.1 F (36.7 C) Oral 72 20 94 % 01/28/15 2310 110/58 mmHg 98.1 F (36.7 C) Oral 73 17 93 % 01/28/15 2012 109/55 mmHg 98.1 F (36.7 C) Oral 101 18 96 % 01/28/15 1808 104/56 mmHg 98.7 F (37.1 C) Oral 103 18 95 % I&O Detailed Table: Intake/Output Summary (Last 24 hours) at 01/29/15 1651 Last data filed at 01/29/15 1452 Gross per 24 hour Intake 1686 ml Output 500 ml Net 1186 ml Patient Vitals for the past 96 hrs: Weight 01/28/15 1500 95.5 kg (210 lb 8.6 oz) Hemodynamics Last 24hrs: Examination: Physical Exam Constitutional: She is oriented to person, place, and time. She appears well-developed. No distress. Elevation of bMI HENT: Head: Normocephalic. Mouth/Throat: Oropharynx is clear and moist. No oropharyngeal exudate. Eyes: Pupils are equal, round, and reactive to light. No scleral icterus. Neck: Normal range of motion. Cardiovascular: Normal rate and regular rhythm. Murmur heard. Pulmonary/Chest: Effort normal and breath sounds normal. No stridor. No respiratory distres s. She has no wheezes. Abdominal: She exhibits no abdominal bruit. Bowel sounds are increased. Genitourinary: No vaginal discharge found. Musculoskeletal: She exhibits no edema or tenderness. Neurological: She is alert and oriented to person, place, and time. Skin: Skin is warm and dry. No rash noted. She is not diaphoretic. No erythema. There is pa llor. Psychiatric: She has a normal mood and affect. Her behavior is normal. LABS: Recent Labs Lab 01/29/1543401/28/15 1447 WBC 18.47* 19.78* HGB 10.8* 12.6 HCT 32.7* 38.9 PLT 151 167 Recent Labs Lab 01/29/15 0435 01/28/15 1526 01/28/15 1447 NA 137 -- 137 K 4.4 -- 3.4* CL 106 -- 101 CO2 24 -- 27 BUN 22 -- 18 CREATININE 1.9* 1.4* 1.3* PROT 6.5 -- 7.9 BILITOT 0.5 -- 0.6 ALT 23 -- 30 AST 41 -- 51* Phosphorus: Recent Labs Lab 01/29/15 043 PHOS 3.5 Recent Labs Lab 01/29/15 0435 01/28/15 1447 MG 1.8 1.1* Recent Labs Lab 01/28/15 1447 TSH 1.71 Recent Labs Lab 01/28/15 1447 CKTOTAL 266* TROPONINI 0.083 CKMBINDEX 0.4 Diagnostic: Ct Abdomen Pelvis Without Contrast 01/14/2015 HISTORY: 69 year-old female with abdominal pain TECHNIQUE: CT through the abdo men and pelvis. Performed without the administration of IV contrast. Examination performed w ith enteric contrast. Prior study for comparison: None FINDINGS: Television Agent 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 deg enerative changes of [...] Myocardial Perfusion Spect (stress And Rest) 01/18/2015 COLE ERNST 1945 [place] MYOCARDIAL PERFUSION SPECT - STRESS AND REST 01/18 2:28 PM INDICATION: Elevation of troponin, chest pain COMPARISON: None. TECHNIQUE: A same day, rest and stress protocol was performed. For the resting portion of the study th e patient was injected intravenously with 10 mCi of technetium 99m labeled Myoview. Gated S PECT imaging was performed in the supine position. The patient was then pharmacologically s tressed with 0.4 mg of regadenoson intravenously according to protocol. Resting heart rate deedee from 69 beats/min to 88 beats/min which was 58% of the maximum age-predicted heart rate . At the point of maximum stress, the patient received 40 mCi of technetium 99m labeled Zoltan view intravenously. Gated SPECT images were acquired in the supine position. FINDINGS: The re are no fixed or reversible perfusion defects present between rest and stress imaging in t he supine position. Normal wall thickening of the left ventricle is demonstrated. There appe ars to be diminished wall motion along the inferior septum. There is mild elevation of the t ransient ischemic dilatation ratio. The following functional data was obtained: End-diastol ic volume: 50 mL End-systolic volume: 20 mL Ejection fraction: 61% 01/18/2015 1. Normal myocardial perfusion study. 2. No evidence of pharmacologic stress induced ischemia or infarct. 3. Mild decreased wall motion of the inferior septum. 4. Left ventricular ejection fraction is calculated at 61%. Xr Chest 1 View 01/28/2015 COLETeresa ERNST 1945 69 years XR CHEST 1 VIEW 01/28/2015 2:40 PM INDICATION : Shortness of breath and fever COMPARISON: 01/14/2015 TECHNIQUE: Chest 1 view, AP view of the chest FINDINGS: Lung volumes are markedly diminished from the previous exam. There is no pneumothorax noted. The cardiac silhouette is unchanged in appearance from prior study. C holecystectomy clips are seen in the right upper quadrant. Multiple surgical clips are prese nt along the epigastrium secondary to previous splenectomy. Increasing perihilar opacities a re noted which is felt to reflect atelectasis. The pulmonary markings are normal in caliber. 01/28/2015 1. Diminished lung volumes from prior study with increasing probable perihilar atelectasis. Pneumonia cannot be excluded due to the low lung volumes. Electronically arpita d by Chang Gar MD on 01/28/2015 2:44 PM Xr Chest 1 View 01/14/2015 HISTORY: [...] Date of : 1945 Performing Physician: Gil Martines MD ------REPORT ADDENDED------ INDICATIONS abnormal ekg CONCL [...] LA/Ao: 1.57 D-E Excursion: 2.11 cm E-F Grainger: 0.09 m/s EPSS: 0.48 cm HR: 77.41 [...] TV A Billy: 0.66 m/s TV Dec Grainger: 4.36 m/s2 TV Dec Time: 184.41 ms TV E Billy: 0.80 m/s TV E/A Rat io: 1.21 Punchboard Assembler: NEDRA Authenticated by: Gil Martines MD Report Date/Time: 01-15 09:12:05 01/15/2015 1. Indication for study and thus clinical question is unknown. Minor irregulari ties as below. End Colonoscopy Imaging 01/17/2015 This is a non-reportable procedure without a radiologist report and is used fo r image storage only. Please review the GI encounter notes for details on the procedure. Past Medical History Diagnosis Date Stroke (HCC) Hyperlipidemia Hypertension Past Surgical History Procedure Laterality Date Liver transplant 192 Gallbladder surgery 1992 Splenectomy Colonoscopy N/A 01/17/2015 Procedure: COLONOSCOPY; Surgeon: Juan Ramey MD; Location: [facility]; Service: Gastroenterology; Laterality: N/A; PROBLEM LIST Principal Problem: Intestinal infection due to Clostridium difficile Active Problems: Liver replaced by transplant (HCC) Essential hypertension, benign Dyslipidemia Anemia Hypothyroidism CKD (chronic kidney disease), stage III Other severe protein-calorie malnutrition (HCC) Feve ASSESSMENT & PLAN 69-year-old female with the followin. Intestinal infection, most likely secondary to Clostridium difficile. Continue oral vanc omycin. Frequency of diarrhea is perhaps slightly decreasing as per patient's report. Not si gnificant abdominal pain at rest but some left lower quadrant discomfort on palpation/freque nt physical examinations. Continue supportive therapy with IV fluids. 2. Previous history of liver transplant: Continue immunosuppressive therapy. The patient's liver function tests remain normal. 3. Essential hypertension: Continue metoprolol. Systolic blood pressure well-controlled at this point. 4. Acute and chronic kidney disease, stage 3. Creatinine level was increasing since admissi on. This is most likely due to intravascular volume contraction. Will give bolus of normal s carla now and continue with normal saline 125 mL IV overnight with repeat of renal function in the morning. Should renal function deteriorate further, further nephrology consultation w ill be obtained. 5. Dyslipidemia: Statin on hold for now. 6. Hypothyroidism: Continue levothyroxine. 7. Severe protein calorie malnutrition: Continue nutritional supplementation/dietitian cons ult. 8. DVT prophylaxis: Subcutaneous heparin. Jose Maria Espinal MD 01/29/2015 4:51 PM onversion Transa ction, Provider Unknown - 01/29/2015 3:25 PM PDT Case Management by Pedro Partida RN at 01/29/15 1525 Author: Pedro Partida RN Service: (none) Author Type: Registered Nurse Filed: 01/29/15 1541 Date of Service: 01/29/15 1525 Status: Signed Refrigerating Engineer Head: Pedro Partida RN (Registered Nurse) 01/29/15 1521 Discharge Planning Evaluation Admitting Diagnosis Intestinal infection C.dif. Readmission Yes-within 14 days Reason for readmission Intestinal infection C.dif Last discharge disposition [facility] Needs met at last discharge Yes Picked up discharge Rx medications Not applicable Followed up with primary or specialty provider Yes Understood discharge instructions Yes Assistance available Yes Living Arrangements Alone Support Systems Friends/neighbors Type of Residence Private residence House type Apartment Independent with ADL's Yes Independent with Mobility Yes Caregiver after Discharge Yes Mental Status Oriented Anticipated Disposition Facility Type assisted facility [facility] Other (comment) ([facility] in [place]) Met with: patient and discussed discharge planning, Pt is a 69 y.o., female who was discharged from [facility] 2 wee ks ago to [facility]. Her sister, Renée Tipton is emergency contact, . Patient's PCP is: KI DE JESUS Patient's insurance: Medicare Coverage concerns: Medication coverage/concerns: Community resources utilized / needed: Assistance in transportation: Identification of any specific education / training: Barriers to Discharge / Alternative housing needed: Anticipated DCP: Return to [facility] PEDRO PARTIDA RN onver alessandro Nicole Provider Unknown - 01/29/2015 8:55 AM PDT Therapy Progress Note by Barbara Edmond PT at 01/29/15 0855 Author: Barbara Edmond PT Service: (none) Author Type: Physical Therapist Filed: 01/29/1533 Date of Service: 01/29/15854 Status: Signed Refrigerating Engineer Head: Barbara Edmond PT (Physical Therapist) 01/29/15 08 PT Last Visit PT Received On 01/29/15 Reason for Treatment Deconditioning (dx cdiff, hx CHF) Requires PT Follow Up Awaiting tx order Follow up PT Only? Yes (OOB assessment, f/u on MD report on L toe) Focus for Next Treatment Formal Balance Assessment PT Eval/Reassessment Date 01/29/15 Assistance Required 1 person Home Environment Additional Comments Pt admit from SNF, was only there 1wk. Prior to SNF at ground level ap t alone but has caregivers set up for when d/c home 4hr/day, 5d/wk. Plans to return to SNF after current hospital stay. Just FIELD INSPECTOR Júnior ADL's and Júnior mobility using 4ww for short room distances, had been using manual w/c in hallway at SNF. Reports a few falls at facility ov er last week, otherwise denies falls over last 6mos. Was getting therapies at facility. Prior Function Level of Hallie Modified independent with ADLs;Modified independent with functional m obility Employment Retired for age RLE Assessment RLE Assessment (mild functional weakness) LLE Assessment LLE Assessment (functional weakness; TTP 1st MT, MTP, pn w/PROM, edema) Cognition Overall Cognitive Status WFL Orientation Level Oriented Sensation Light Touch No apparent deficits Additional Comments mild ecchymosis L MTP jt Perception Inattention/Neglect Appears intact Initiation Appears intact Vision-Basic Assessment Current Vision Wears glasses Assessment of Patient Status Assessment of Patient Status Decreased functional mobility;Decreased endurance;Pain Safety Devices Safety Devices in Place (call light in reach, bed alarm, RN in room) Precautions Other Precautions fall precautions Activity Tolerance Endurance Fair Plan Treatment/Interventions Balance training;Bed mobility training;Gait training;Monitor O2 sat s;Monitor vital signs;Review precautions;Therapeutic exercise;Transfer training PT Frequency 5-7x/wk;Once per day;Twice a day Care Duration (# of days) 7 # of days Recommendation Recommendations SNF Barriers to Discharge Physical Deficits Impacting Functional Hallie;Self-care Deficit s Impacting Functional Hallie;Equipment Needs (see comment);Pain Recommendation Comments Needs return to SNF as pt lives at home alone prior to SNF stay. W ill need f/u on L great toe pn/edema BP: 111/66, O2 92% 3L 01/29/15 0855 PT Last Visit PT Received On 01/29/15 Reason for Treatment Deconditioning (dx cdiff, hx CHF) Requires PT Follow Up Awaiting tx order Follow up PT Only? Yes (OOB assessment, f/u on MD report on L toe) Focus for Next Treatment Formal Balance Assessment PT Eval/Reassessment Date 01/29/15 Assistance Required 1 person Precautions Other Precautions fall precautions Other Comments Comments Pt in bed, agreeable to PT. LImited by LLE great toe pn, deconditioning and incon tinence of bowel. Pt able to roll independently and sit EOB w/SBA. However pn w/touching L LE to floor and unable to attemt to stand. LLE min elevated w/rolled blanket. RN notified of findings and pt status. Cognition Overall Cognitive Status WFL Orientation Level Oriented Bed Mobility Rolling Independent Supine to Sit Standby assist;Verbal instruction;Visual instruction Sit to Supine Standby assist;Verbal instruction;Visual instruction Scooting Minimal assist Transfers Sit to/from Stand NCIK Mobility Ambulation Assistance NICK Modalities Modalities Other therapy Other Therapy ed on mobility techniques, principle of RICE for LLE, DVT prevention, pressur e relief for skin integrity, poc and recommendations Activity Tolerance Activity Tolerance Patient limited by pain Nurse Made Aware RN Florence notified of pt status and recommendations Safety Devices Safety Devices in Place (call light in reach, bed alarm, RN in room) Plan Treatment/Interventions Balance training;Bed mobility training;Gait training;Monitor O2 sat s;Monitor vital signs;Review precautions;Therapeutic exercise;Transfer training PT Frequency 5-7x/wk;Once per day;Twice a day Care Duration (# of days) 7 # of days Recommendation Recommendations SNF Barriers to Discharge Physical Deficits Impacting Functional Hallie;Self-care Deficit s Impacting Functional Hallie;Equipment Needs (see comment);Pain Recommendation Comments Needs return to SNF as pt lives at home alone prior to SNF stay. W ill need f/u on L great toe pn/edema onver alessandro Transaction, Provider Unknown - 01/29/2015 8:31 AM PDT Progress Notes by Malick Ramos RN at 01/29/15830 Author: Malick Ramos RN Service: (none) Author Type: Registered Nurse Filed: 01/29/15831 Date of Service: 01/29/15830 Status: Signed Refrigerating Engineer Head: Malick Ramos RN (Registered Nurse) Infection Prevention Note: Patient stool is positive for C. Diff. Contact Enteric Precautions are required until furt her notice. Thank you. Malick Ramos RN, BA, Triage Licensed Practical Nurse onver alessandro Transaction, Provider Unknown - 01/28/2015 3:23 PM PDT Progress Notes by Jimena Duarte RPH at 01/28/151522 Author: Jimena Duarte RPH Service: (none) Author Type: Pharmacist Filed: 01/28/15 152 Date of Service: 01/28/151522 Status: Signed Refrigerating Engineer Head: Jimena Duarte RPH (Pharmacist) Zosyn Extended Infusion Initial Consult-Per Dr. Jacob Ernst 69 y.o. female CrCl cannot be calculated (Unknown ideal weight.). NEUTROPHILS ABS Date Value Ref Range Status 01/18/2015 3.26 1.90 - 7.40 K/uL Final Comment: Testing performed at [facility], [address] [place] [id number] CREATININE Date Value Ref Range Status 01/19/2015 0.96 0.50 - 1.00 mg/dL Final Comment: Testing performed at [facility], [address] [place] [id number] Zosyn extended Infusion loading and maintenance dose guidelines Loading Dose 4.5 g IV Over 30 minutes CrCl >20 ml/min 3.375 g IV Q 8 hours Over 4 hours CrCl 10-20 ml/min 3.375 g IV Q 12 hours Over 4 hours CrCl <10, HD, PD Follow [facility] Dosage Adjustments in Renal Dysfunction Protocol Plan per pharmacy protocol: Zosyn 4.5 g IVPB Loading dose over 30 minutes starting @1600 followed by Zosyn 3.375 g IVPB extended infusion over 4 hours Q 8 hours starting @1800 Creatinine is scheduled to be drawn with morning labs. Will allow extended infusion to star t and then pharmacy can re-assess interval once estimated CrCl returns. Pharmacy will continue monitoring patient for appropriate dosing per renal function. 01/28/2015 3:19 PM Pharmacist: Jimena Duarte onver alessandro Transaction, Provider Unknown - 01/28/2015 3:16 PM PDT Progress Notes by Jimena Duarte RPH at 01/28/15 1516 Author: Jimena Duarte RPH Service: (none) Author Type: Pharmacist Filed: 01/28/151515 Date of Service: 01/28/151515 Status: Signed Refrigerating Engineer Head: Jimena Duarte RPH (Pharmacist) Renal Dosing Monitoring: Coleteresa Ernst 69 y.o. female Pharmacy dosing for renal function per Dr. Jacob Smith MD No updated SCr to allow for calculation of estimated CrCl Acute on chronic CKD listed as an active hospital problem Plan per protocol: Medication / Dose: Will allow one dose of levofloxacin 750 mg to be dosed today and then when creatinine retur ns with AM labs pharmacy will decide whether to continue frequency or adjust to q48h. Pharmacy is also dosing the extended infusion zosyn No other medications to renally adjust at this time. Pharmacy will continue monitoring patient for appropriate dosing per renal function. 01/28/2015 3:14 PM Pharmacist: Jimena Duarte docume nted in this encounter Plan of Treatment Not on filedocumented as of this encounter Procedures + +--------+ + + + | Procedure Name | Priori | Date/Time | Associated Diagnosis | Comments | | | ty | | | | + +--------+ + + + | EXTERNAL LAB: CBC | Routin | 02/03/2015 | | Results for this | | | e | 3:24 AM | | procedure are in the | | | | PDT | | results section. | + +--------+ + + + | PHOSPHORUS | Routin | 02/03/2015 | | Results for this | | | e | 3:24 AM | | procedure are in the | | | | PDT | | results section. | + +--------+ + + + | MAGNESIUM | Routin | 02/03/2015 | | Results for this | | | e | 3:24 AM | | procedure are in the | | | | PDT | | results section. | + +--------+ + + + | COMPREHENSIVE | Routin | 02/03/2015 | | Results for this | | METABOLIC PANEL | e | 3:24 AM | | procedure are in the | | | | PDT | | results section. | + +--------+ + + + | POTASSIUM | Routin | 02/02/2015 | | Results for this | | | e | 2:12 PM | | procedure are in the | | | | PDT | | results section. | + +--------+ + + + | MAGNESIUM | Routin | 02/02/2015 | | Results for this | | | e | 2:12 PM | | procedure are in the | | | | PDT | | results section. | + +--------+ + + + | EXTERNAL LAB: CBC | Routin | 02/02/2015 | | Results for this | | | e | 3:17 AM | | procedure are in the | | | | PDT | | results section. | + +--------+ + + + | PHOSPHORUS | Routin | 02/02/2015 | | Results for this | | | e | 3:17 AM | | procedure are in the | | | | PDT | | results section. | + +--------+ + + + | MAGNESIUM | Routin | 02/02/2015 | | Results for this | | | e | 3:17 AM | | procedure are in the | | | | PDT | | results section. | + +--------+ + + + | COMPREHENSIVE | Routin | 02/02/2015 | | Results for this | | METABOLIC PANEL | e | 3:17 AM | | procedure are in the | | | | PDT | | results section. | + +--------+ + + + | VITAMIN B-12 | Routin | 02/01/2015 | | Results for this | | | e | 10:03 AM | | procedure are in the | | | | PDT | | results section. | + +--------+ + + + | FOLATE | Routin | 02/01/2015 | | Results for this | | | e | 10:03 AM | | procedure are in the | | | | PDT | | results section. | + +--------+ + + + | EXTERNAL LAB: CBC | Routin | 02/01/2015 | | Results for this | | | e | 3:26 AM | | procedure are in the | | | | PDT | | results section. | + +--------+ + + + | PHOSPHORUS | Routin | 02/01/2015 | | Results for this | | | e | 3:26 AM | | procedure are in the | | | | PDT | | results section. | + +--------+ + + + | MAGNESIUM | Routin | 02/01/2015 | | Results for this | | | e | 3:26 AM | | procedure are in the | | | | PDT | | results section. | + +--------+ + + + | COMPREHENSIVE | Routin | 02/01/2015 | | Results for this | | METABOLIC PANEL | e | 3:26 AM | | procedure are in the | | | | PDT | | results section. | + +--------+ + + + | EXTERNAL LAB: CBC | Routin | 01/31/2015 | | Results for this | | | e | 4:37 AM | | procedure are in the | | | | PDT | | results section. | + +--------+ + + + | PHOSPHORUS | Routin | 01/31/2015 | | Results for this | | | e | 4:37 AM | | procedure are in the | | | | PDT | | results section. | + +--------+ + + + | MAGNESIUM | Routin | 01/31/2015 | | Results for this | | | e | 4:37 AM | | procedure are in the | | | | PDT | | results section. | + +--------+ + + + | COMPREHENSIVE | Routin | 01/31/2015 | | Results for this | | METABOLIC PANEL | e | 4:37 AM | | procedure are in the | | | | PDT | | results section. | + +--------+ + + + | XR CHEST 2 VIEWS | Routin | 01/30/2015 | | Results for this | | | e | 8:45 AM | | procedure are in the | | | | PDT | | results section. | + +--------+ + + + | EXTERNAL LAB: CBC | Routin | 01/30/2015 | | Results for this | | | e | 5:42 AM | | procedure are in the | | | | PDT | | results section. | + +--------+ + + + | PHOSPHORUS | Routin | 01/30/2015 | | Results for this | | | e | 5:42 AM | | procedure are in the | | | | PDT | | results section. | + +--------+ + + + | MAGNESIUM | Routin | 01/30/2015 | | Results for this | | | e | 5:42 AM | | procedure are in the | | | | PDT | | results section. | + +--------+ + + + | COMPREHENSIVE | Routin | 01/30/2015 | | Results for this | | METABOLIC PANEL | e | 5:42 AM | | procedure are in the | | | | PDT | | results section. | + +--------+ + + + | EXTERNAL LAB: CBC | Routin | 01/29/2015 | | Results for this | | | e | 7:00 PM | | procedure are in the | | | | PDT | | results section. | + +--------+ + + + | BASIC METABOLIC | Routin | 01/29/2015 | | Results for this | | PANEL | e | 7:00 PM | | procedure are in the | | | | PDT | | results section. | + +--------+ + + + | XR FOOT LEFT 3 + VW | Routin | 01/29/2015 | | Results for this | | | e | 2:48 PM | | procedure are in the | | | | PDT | | results section. | + +--------+ + + + | EXTERNAL LAB: CBC | Routin | 01/29/2015 | | Results for this | | | e | 4:35 AM | | procedure are in the | | | | PDT | | results section. | + +--------+ + + + | PROCALCITONIN, SERUM | Routin | 01/29/2015 | | Results for this | | | e | 4:35 AM | | procedure are in the | | | | PDT | | results section. | + +--------+ + + + | PHOSPHORUS | Routin | 01/29/2015 | | Results for this | | | e | 4:35 AM | | procedure are in the | | | | PDT | | results section. | + +--------+ + + + | MAGNESIUM | Routin | 01/29/2015 | | Results for this | | | e | 4:35 AM | | procedure are in the | | | | PDT | | results section. | + +--------+ + + + | LACTIC ACID | Routin | 01/29/2015 | | Results for this | | | e | 4:35 AM | | procedure are in the | | | | PDT | | results section. | + +--------+ + + + | COMPREHENSIVE | Routin | 01/29/2015 | | Results for this | | METABOLIC PANEL | e | 4:35 AM | | procedure are in the | | | | PDT | | results section. | + +--------+ + + + | URINALYSIS, REFLEX | Routin | 01/28/2015 | | Results for this | | MICROSCOPIC AND/OR | e | 7:50 PM | | procedure are in the | | CULTURE | | PDT | | results section. | + +--------+ + + + | URINALYSIS, | Routin | 01/28/2015 | | Results for this | | MICROSCOPIC ONLY | e | 7:50 PM | | procedure are in the | | | | PDT | | results section. | + +--------+ + + + | CULTURE, URINE | Routin | 01/28/2015 | | Results for this | | | e | 7:50 PM | | procedure are in the | | | | PDT | | results section. | + +--------+ + + + | CREATININE | Routin | 01/28/2015 | | Results for this | | | e | 3:26 PM | | procedure are in the | | | | PDT | | results section. | + +--------+ + + + | HISTORICAL | Timed | 01/28/2015 | | Results for this | | MICROBIOLOGY RESULT | | 2:52 PM | | procedure are in the | | | | PDT | | results section. | + +--------+ + + + | LACTIC ACID | Routin | 01/28/2015 | | Results for this | | | e | 2:52 PM | | procedure are in the | | | | PDT | | results section. | + +--------+ + + + | EXTERNAL LAB: CBC | Routin | 01/28/2015 | | Results for this | | | e | 2:47 PM | | procedure are in the | | | | PDT | | results section. | + +--------+ + + + | PROCALCITONIN, SERUM | Routin | 01/28/2015 | | Results for this | | | e | 2:47 PM | | procedure are in the | | | | PDT | | results section. | + +--------+ + + + | TROPONIN I | Routin | 01/28/2015 | | Results for this | | | e | 2:47 PM | | procedure are in the | | | | PDT | | results section. | + +--------+ + + + | CK-MB | Routin | 01/28/2015 | | Results for this | | | e | 2:47 PM | | procedure are in the | | | | PDT | | results section. | + +--------+ + + + | TSH | Routin | 01/28/2015 | | Results for this | | | e | 2:47 PM | | procedure are in the | | | | PDT | | results section. | + +--------+ + + + | PHOSPHORUS | Routin | 01/28/2015 | | Results for this | | | e | 2:47 PM | | procedure are in the | | | | PDT | | results section. | + +--------+ + + + | B TYPE NATRIURETIC | Routin | 01/28/2015 | | Results for this | | PEPTIDE | e | 2:47 PM | | procedure are in the | | | | PDT | | results section. | + +--------+ + + + | MAGNESIUM | Routin | 01/28/2015 | | Results for this | | | e | 2:47 PM | | procedure are in the | | | | PDT | | results section. | + +--------+ + + + | CK TOTAL | Routin | 01/28/2015 | | Results for this | | | e | 2:47 PM | | procedure are in the | | | | PDT | | results section. | + +--------+ + + + | COMPREHENSIVE | Routin | 01/28/2015 | | Results for this | | METABOLIC PANEL | e | 2:47 PM | | procedure are in the | | | | PDT | | results section. | + +--------+ + + + | XR CHEST 1 VIEW | Routin | 01/28/2015 | | Results for this | | | e | 2:40 PM | | procedure are in the | | | | PDT | | results section. | + +--------+ + + + documented in this encounter Results External Lab: CBC (02/03/2015 3:24 AM PDT) + + + + + + | Component | Value | Ref Range | Performed | Pathologist | | | | | At | Signature | + + + + + + | WBC | 8.81Comment: Testing | 3.80 - 11.00 | EXTERNAL | | | | performed at [facility], [address] | K/uL | LAB | | | | [address], | | | | | | [place] [address] | | | | + + + + + + | RED CELL | 2.72 (L)Comment: Testing | 3.70 - 5.10 | EXTERNAL | | | COUNT | performed at [facility], [address] | M/uL | LAB | | | | [address], | | | | | | [place] [address] | | | | + + + + + + | Hgb | 9.6 (L)Comment: Testing | 11.3 - 15.5 | EXTERNAL | | | | performed at [facility], [address] | g/dL | LAB | | | | [address], | | | | | | [place] [address] | | | | + + + + + + | Hematocrit, | 28.8 (L)Comment: Testing | 34.0 - 46.0 % | EXTERNAL | | | POC | performed at [facility], [address] | | LAB | | | | [address], | | | | | | [place] [address] | | | | + + + + + + | MCV | 106.0 (H)Comment: | 80.0 - 100.0 fl | EXTERNAL | | | | Testing performed at | | LAB | | | | [facility], [address] | | | | | | [place] | | | | | | [address] | | | | + + + + + + | MCH | 35.2 (H)Comment: Testing | 27.0 - 34.0 pg | EXTERNAL | | | | performed at [facility], [address] | | LAB | | | | [address], | | | | | | [place] [address] | | | | + + + + + + | MCHC | 33.2Comment: Testing | 32.0 - 35.5 | EXTERNAL | | | | performed at [facility], [address] | g/dL | LAB | | | | [address], | | | | | | [place] [address] | | | | + + + + + + | RDW-CV | 53.4 (H)Comment: Testing | 37 - 53 fl | EXTERNAL | | | | performed at [facility], [address] | | LAB | | | | [address], | | | | | | [place] [address] | | | | + + + + + + | Platelet | 216Comment: Testing | 150 - 400 K/uL | EXTERNAL | | | Count | performed at [facility], [address] | | LAB | | | Plasma | [address], | | | | | | [place] [address] | | | | + + + + + + | MPV | 10.5Comment: Testing | fl | EXTERNAL | | | | performed at [facility], [address] | | LAB | | | | [address], | | | | | | [place], [place] [address] | | | | + + + + + + | Differentia | MANUALComment: Testing | | EXTERNAL | | | l Type | performed at [facility], [address] | | LAB | | | | [address], | | | | | | [place], [place] [address] | | | | + + + + + + | Segmented | 35Comment: Testing | % | EXTERNAL | | | Neutrophils | performed at [facility], [address] | | LAB | | | Manual | [address], | | | | | | [place] [address] | | | | + + + + + + | % Bands | 1Comment: Testing | % | EXTERNAL | | | | performed at [facility], [address] | | LAB | | | | [address], | | | | | | [place] [address] | | | | + + + + + + | Lymphocytes | 44Comment: Testing | % | EXTERNAL | | | Manual | performed at [facility], [address] | | LAB | | | | [address], | | | | | | [place] [address] | | | | + + + + + + | Monocytes | 12Comment: Testing | % | EXTERNAL | | | Manual | performed at [facility], [address] | | LAB | | | | [address], | | | | | | [place] [address] | | | | + + + + + + | Eosinophils | 8Comment: Testing | % | EXTERNAL | | | Manual | performed at [facility], [address] | | LAB | | | | [address], | | | | | | [place] [address] | | | | + + + + + + | Absolute | 3.08Comment: Testing | 1.90 - 7.40 | EXTERNAL | | | Neutrophils | performed at [facility], [address] | K/uL | LAB | | | | [address], | | | | | | [place] [address] | | | | + + + + + + | Bands | 0.09Comment: Testing | 0.00 - 0.20 | EXTERNAL | | | Manual | performed at [facility], [address] | K/uL | LAB | | | | [address], | | | | | | [place] [address] | | | | + + + + + + | Absolute | 3.88Comment: Testing | 1.00 - 3.90 | EXTERNAL | | | Lymphocytes | performed at [facility], [address] | K/uL | LAB | | | | [address], | | | | | | [place] [address] | | | | + + + + + + | Absolute | 1.06 (H)Comment: Testing | 0.00 - 0.80 | EXTERNAL | | | Monocytes | performed at [facility], [address] | K/uL | LAB | | | | [address], | | | | | | [place] [address] | | | | + + + + + + | Absolute | 0.70 (H)Comment: Testing | 0.00 - 0.50 | EXTERNAL | | | Eosinophils | performed at [facility], [address] | K/uL | LAB | | | | [address], | | | | | | [place] [address] | | | | + + + + + + | RBC | NORMAL PLT MORPHComment: | | EXTERNAL | | | Morphology | NORMAL RBC MORPHTesting | | LAB | | | | performed at [facility], [address] | | | | | | [address], | | | | | | [place] [address] | | | | + + + + + + + + | Specimen | + + | Blood specimen | | (specimen) | + + + +---------+ + + | Performing | Address | City/State/Zipcode | Phone Number | | Organization | | | | + +---------+ + + | EXTERNAL LAB | | | | + +---------+ + + Phosphorus (02/03/2015 3:24 AM PDT) + + + + + + | Component | Value | Ref Range | Performed | Pathologist | | | | | At | Signature | + + + + + + | PHOSPHORUS | 2.7Comment: Testing | 2.3 - 4.8 mg/dL | EXTERNAL | | | | performed at [facility], [address] | | LAB | | | | [address], | | | | | | [place] [address] | | | | + + + + + + + + | Specimen | + + | Blood specimen | | (specimen) | + + + +---------+ + + | Performing | Address | City/State/Zipcode | Phone Number | | Organization | | | | + +---------+ + + | EXTERNAL LAB | | | | + +---------+ + + Magnesium (02/03/2015 3:24 AM PDT) + + + + + + | Component | Value | Ref Range | Performed | Pathologist | | | | | At | Signature | + + + + + + | Magnesium | 1.4 (L)Comment: Testing | 1.7 - 2.4 mg/dL | EXTERNAL | | | | performed at [facility], [address] | | LAB | | | | [address], | | | | | | [place] [address] | | | | + + + [...] + +---------+ + + Comprehensive Metabolic Panel (02/03/2015 3:24 AM PDT) + + + + + + | Component | Value | Ref Range | Performed | Pathologist | | | | | At | Signature | + + + + + + | Na | 136Comment: Testing | 135 - 143 | EXTERNAL | | | | performed at [facility], [address] | mmol/L | LAB | | | | [address], | | | | | | [place] [address] | | | | + + + + + + | K | 4.0Comment: Testing | 3.5 - 4.9 | EXTERNAL | | | | performed at [facility], [address] | mmol/L | LAB | | | | [address], | | | | | | [place] [address] | | | | + + + + + + | Cl | 102Comment: Testing | 99 - 109 mmol/L | EXTERNAL | | | | performed at [facility], [address] | | LAB | | | | [address], | | | | | | [place] [address] | | | | + + + + + + | CO2 | 33 (H)Comment: Testing | 23 - 32 mmol/L | EXTERNAL | | | | performed at [facility], [address] | | LAB | | | | [address], | | | | | | [place] [address] | | | | + + + + + + | Anion Gap | 5Comment: Testing | 5 - 20 mmol/L | EXTERNAL | | | | performed at [facility], [address] | | LAB | | | | [address], | | | | | | [place] [address] | | | | + + + + + + | Glucose, | 105 (H)Comment: Testing | 65 - 99 mg/dL | EXTERNAL | | | Fasting | performed at [facility], [address] | | LAB | | | | [address], | | | | | | [place] [address] | | | | + + + + + + | BUN | 9Comment: Testing | 8 - 25 mg/dL | EXTERNAL | | | | performed at [facility], [address] | | LAB | | | | [address], | | | | | | [place] [address] | | | | + + + + + + | Creatinine | 0.82Comment: Testing | 0.50 - 1.00 | EXTERNAL | | | | performed at [facility], [address] | mg/dL | LAB | | | | [address], | | | | | | [place] [address] | | | | + + + + + + | BUN/Creatin | 11Comment: Testing | | EXTERNAL | | | ine Ratio | performed at [facility], [address] | | LAB | | | | [address], | | | | | | [place] [address] | | | | + + + + + + | Calcium | 8.5Comment: Testing | 8.5 - 10.5 | EXTERNAL | | | | performed at [facility], [address] | mg/dL | LAB | | | | [address], | | | | | | [place] [address] | | | | + + + + + + | Protein, | 6.3Comment: Testing | 6.3 - 8.2 g/dL | EXTERNAL | | | Total | performed at [facility], [address] | | LAB | | | | [address], | | | | | | [place] [address] | | | | + + + + + + | Albumin | 2.8 (L)Comment: Testing | 3.3 - 4.8 g/dL | EXTERNAL | | | | performed at [facility], [address] | | LAB | | | | [address], | | | | | | [place] [address] | | | | + + + + + + | Globulin | 3.5Comment: Testing | 1.3 - 4.9 g/dL | EXTERNAL | | | | performed at [facility], [address] | | LAB | | | | [address], | | | | | | [place] [address] | | | | + + + + + + | A/G Ratio | 0.8 (L)Comment: Testing | 1.0 - 2.4 | EXTERNAL | | | | performed at [facility], [address] | | LAB | | | | [address], | | | | | | [place] [address] | | | | + + + + + + | Bilirubin | 0.5Comment: Testing | 0.1 - 1.5 mg/dL | EXTERNAL | | | Total | performed at [facility], [address] | | LAB | | | | [address], | | | | | | [place] [address] | | | | + + + + + + | ALP, | 102Comment: Testing | 35 - 115 U/L | EXTERNAL | | | External | performed at [facility], [address] | | LAB | | | | [address], | | | | | | [place] [address] | | | | + + + + + + | AST | 53 (H)Comment: Testing | 10 - 45 U/L | EXTERNAL | | | | performed at [facility], [address] | | LAB | | | | [address], | | | | | | [place] [address] | | | | + + + + + + | ALT | 21Comment: Testing | 10 - 65 U/L | EXTERNAL | | | | performed at [facility], [address] | | LAB | | | | [address], | | | | | | [place] [address] | | | | + + + [...] | | | | | | at [facility], [address] | | | | | | [facility], | | | | | | [place] [address] | | | | + + + + + + + + | Specimen | + + | Blood specimen | | (specimen) | + + + +---------+ + + | Performing | Address | City/State/Zipcode | Phone Number | | Organization | | | | + +---------+ + + | EXTERNAL LAB | | | | + +---------+ + + Potassium (02/02/2015 2:12 PM PDT) + + + + + + | Component | Value | Ref Range | Performed | Pathologist | | | | | At | Signature | + + + + + + | K | 3.7Comment: Testing | 3.5 - 4.9 | EXTERNAL | | | | performed at [facility];[address] | mmol/L | LAB | | | | [address];[place], [place] | | | | | | [address] | | | | + + + + + + + + | Specimen | + + | Blood specimen | | (specimen) | + + + +---------+ + + | Performing | Address | City/State/Zipcode | Phone Number | | Organization | | | | + +---------+ + + | EXTERNAL LAB | | | | + +---------+ + + Magnesium (02/02/2015 2:12 PM PDT) + + + + + + | Component | Value | Ref Range | Performed | Pathologist | | | | | At | Signature | + + + + + + | Magnesium | 1.7Comment: Testing | 1.7 - 2.4 mg/dL | EXTERNAL | | | | performed at [facility];[address] | | LAB | | | | [address];[place] | | | | | | [address] | | | | + + + [...] + +---------+ + + External Lab: CBC (02/02/2015 3:17 AM PDT) + + + + + + | Component | Value | Ref Range | Performed | Pathologist | | | | | At | Signature | + + + + + + | WBC | 8.59Comment: Testing | 3.80 - 11.00 | EXTERNAL | | | | performed at [facility], [address] | K/uL | LAB | | | | [address], | | | | | | [place] [address] | | | | + + + + + + | RED CELL | 2.78 (L)Comment: Testing | 3.70 - 5.10 | EXTERNAL | | | COUNT | performed at [facility], [address] | M/uL | LAB | | | | [address], | | | | | | [place] [address] | | | | + + + + + + | Hgb | 9.7 (L)Comment: Testing | 11.3 - 15.5 | EXTERNAL | | | | performed at [facility], [address] | g/dL | LAB | | | | [address], | | | | | | [place] [address] | | | | + + + + + + | Hematocrit, | 29.6 (L)Comment: Testing | 34.0 - 46.0 % | EXTERNAL | | | POC | performed at [facility], [address] | | LAB | | | | [address], | | | | | | [place] [address] | | | | + + + + + + | MCV | 106.3 (H)Comment: | 80.0 - 100.0 fl | EXTERNAL | | | | Testing performed at | | LAB | | | | [facility], [address] | | | | | | [place] | | | | | | [address] | | | | + + + + + + | MCH | 34.8 (H)Comment: Testing | 27.0 - 34.0 pg | EXTERNAL | | | | performed at [facility], [address] | | LAB | | | | [address], | | | | | | [place] [address] | | | | + + + + + + | MCHC | 32.8Comment: Testing | 32.0 - 35.5 | EXTERNAL | | | | performed at [facility], [address] | g/dL | LAB | | | | [address], | | | | | | [place] [address] | | | | + + + + + + | RDW-CV | 53.8 (H)Comment: Testing | 37 - 53 fl | EXTERNAL | | | | performed at [facility], [address] | | LAB | | | | [address], | | | | | | [place] [address] | | | | + + + + + + | Platelet | 181Comment: Testing | 150 - 400 K/uL | EXTERNAL | | | Count | performed at [facility], [address] | | LAB | | | Plasma | [address], | | | | | | [place] [address] | | | | + + + + + + | MPV | 11.3Comment: Testing | fl | EXTERNAL | | | | performed at [facility], [address] | | LAB | | | | [address], | | | | | | [place] [address] | | | | + + + + + + | Differentia | MANUALComment: Testing | | EXTERNAL | | | l Type | performed at [facility], [address] | | LAB | | | | [address], | | | | | | [place] [address] | | | | + + + + + + | Segmented | 45Comment: Testing | % | EXTERNAL | | | Neutrophils | performed at [facility], [address] | | LAB | | | Manual | [address], | | | | | | [place] [address] | | | | + + + + + + | % Bands | 1Comment: Testing | % | EXTERNAL | | | | performed at [facility], [address] | | LAB | | | | [address], | | | | | | [place] [address] | | | | + + + + + + | Lymphocytes | 35Comment: Testing | % | EXTERNAL | | | Manual | performed at [facility], [address] | | LAB | | | | [address], | | | | | | [place], [place] [address] | | | | + + + + + + | Monocytes | 11Comment: Testing | % | EXTERNAL | | | Manual | performed at [facility], [address] | | LAB | | | | [address], | | | | | | [place] [address] | | | | + + + + + + | Eosinophils | 8Comment: Testing | % | EXTERNAL | | | Manual | performed at [facility], [address] | | LAB | | | | [address], | | | | | | [place] [address] | | | | + + + + + + | Absolute | 3.85Comment: Testing | 1.90 - 7.40 | EXTERNAL | | | Neutrophils | performed at [facility], [address] | K/uL | LAB | | | | [address], | | | | | | [place] [address] | | | | + + + + + + | Bands | 0.09Comment: Testing | 0.00 - 0.20 | EXTERNAL | | | Manual | performed at [facility], [address] | K/uL | LAB | | | | [address], | | | | | | [place] [address] | | | | + + + + + + | Absolute | 3.01Comment: Testing | 1.00 - 3.90 | EXTERNAL | | | Lymphocytes | performed at [facility], [address] | K/uL | LAB | | | | [address], | | | | | | [place] [address] | | | | + + + + + + | Absolute | 0.95 (H)Comment: Testing | 0.00 - 0.80 | EXTERNAL | | | Monocytes | performed at [facility], [address] | K/uL | LAB | | | | [address], | | | | | | [place] [address] | | | | + + + + + + | Absolute | 0.69 (H)Comment: Testing | 0.00 - 0.50 | EXTERNAL | | | Eosinophils | performed at [facility], [address] | K/uL | LAB | | | | [address], | | | | | | [place] [address] | | | | + + + + + + | RBC | 2+Comment: MACRONORMAL | | EXTERNAL | | | Morphology | PLT MORPHTesting | | LAB | | | | performed at [facility], [address] | | | | | | [address], | | | | | | [place] [address] | | | | | | | [...] | | + +---------+ + + Phosphorus (02/02/2015 3:17 AM PDT) + + + + + + | Component | Value | Ref Range | Performed | Pathologist | | | | | At | Signature | + + + + + + | PHOSPHORUS | 2.9Comment: Testing | 2.3 - 4.8 mg/dL | EXTERNAL | | | | performed at [facility], [address] | | LAB | | | | [address], | | | | | | [place] [address] | | | | + + + + + + + + | Specimen | + + | Blood specimen | | (specimen) | + + + +---------+ + + | Performing | Address | City/State/Zipcode | Phone Number | | Organization | | | | + +---------+ + + | EXTERNAL LAB | | | | + +---------+ + + Magnesium (02/02/2015 3:17 AM PDT) + + + + + + | Component | Value | Ref Range | Performed | Pathologist | | | | | At | Signature | + + + + + + | Magnesium | 1.3 (L)Comment: Testing | 1.7 - 2.4 mg/dL | EXTERNAL | | | | performed at [facility], [address] | | LAB | | | | [address], | | | | | | [place] [address] | | | | + + + [...] + +---------+ + + Comprehensive Metabolic Panel (02/02/2015 3:17 AM PDT) + + + + + + | Component | Value | Ref Range | Performed | Pathologist | | | | | At | Signature | + + + + + + | Na | 138Comment: Testing | 135 - 143 | EXTERNAL | | | | performed at [facility], [address] | mmol/L | LAB | | | | [address], | | | | | | [place] [address] | | | | + + + + + + | K | 3.2 (L)Comment: Testing | 3.5 - 4.9 | EXTERNAL | | | | performed at [facility], [address] | mmol/L | LAB | | | | [address], | | | | | | [place] [address] | | | | + + + + + + | Cl | 103Comment: Testing | 99 - 109 mmol/L | EXTERNAL | | | | performed at [facility], [address] | | LATA | | | | [address], | | | | | | [place] [address] | | | | + + + + + + | CO2 | 31Comment: Testing | 23 - 32 mmol/L | EXTERNAL | | | | performed at [facility], [address] | | LAB | | | | [address], | | | | | | [place] [address] | | | | + + + + + + | Anion Gap | 7Comment: Testing | 5 - 20 mmol/L | EXTERNAL | | | | performed at [facility], [address] | | LAB | | | | [address], | | | | | | [place] [address] | | | | + + + + + + | Glucose, | 104 (H)Comment: Testing | 65 - 99 mg/dL | EXTERNAL | | | Fasting | performed at [facility], [address] | | LAB | | | | [address], | | | | | | [place] [address] | | | | + + + + + + | BUN | 10Comment: Testing | 8 - 25 mg/dL | EXTERNAL | | | | performed at [facility], [address] | | LAB | | | | [address], | | | | | | [place] [address] | | | | + + + + + + | Creatinine | 0.83Comment: Testing | 0.50 - 1.00 | EXTERNAL | | | | performed at [facility], [address] | mg/dL | LAB | | | | [address], | | | | | | [place] [address] | | | | + + + + + + | BUN/Creatin | 12Comment: Testing | | EXTERNAL | | | ine Ratio | performed at [facility], [address] | | LAB | | | | [address], | | | | | | [place] [address] | | | | + + + + + + | Calcium | 8.2 (L)Comment: Testing | 8.5 - 10.5 | EXTERNAL | | | | performed at [facility], [address] | mg/dL | LAB | | | | [address], | | | | | | [place] [address] | | | | + + + + + + | Protein, | 6.2 (L)Comment: Testing | 6.3 - 8.2 g/dL | EXTERNAL | | | Total | performed at [facility], [address] | | LAB | | | | [address], | | | | | | [place] [address] | | | | + + + + + + | Albumin | 2.7 (L)Comment: Testing | 3.3 - 4.8 g/dL | EXTERNAL | | | | performed at [facility], [address] | | LAB | | | | [address], | | | | | | [place] [address] | | | | + + + + + + | Globulin | 3.5Comment: Testing | 1.3 - 4.9 g/dL | EXTERNAL | | | | performed at [facility], [address] | | LAB | | | | [address], | | | | | | [place] [address] | | | | + + + + + + | A/G Ratio | 0.8 (L)Comment: Testing | 1.0 - 2.4 | EXTERNAL | | | | performed at [facility], [address] | | LAB | | | | [address], | | | | | | [place] [address] | | | | + + + + + + | Bilirubin | 0.5Comment: Testing | 0.1 - 1.5 mg/dL | EXTERNAL | | | Total | performed at [facility], [address] | | LAB | | | | [address], | | | | | | [place] [address] | | | | + + + + + + | ALP, | 98Comment: Testing | 35 - 115 U/L | EXTERNAL | | | External | performed at [facility], [address] | | LAB | | | | [address], | | | | | | [place] [address] | | | | + + + + + + | AST | 35Comment: Testing | 10 - 45 U/L | EXTERNAL | | | | performed at [facility], [address] | | LAB | | | | [address], | | | | | | [place] [address] | | | | + + + + + + | ALT | 15Comment: Testing | 10 - 65 U/L | EXTERNAL | | | | performed at [facility], [address] | | LAB | | | | [address], | | | | | | [place] [address] | | | | + + + [...] | | | | | | at [facility], [address] | | | | | | [address], | | | | | | [place] [address] | | | | + + + + + + + + | Specimen | + + | Blood specimen | | (specimen) | + + + +---------+ + + | Performing | Address | City/State/Zipcode | Phone Number | | Organization | | | | + +---------+ + + | EXTERNAL LAB | | | | + +---------+ + + Folate (02/01/2015 10:03 AM PDT) + + + + + + | Component | Value | Ref Range | Performed | Pathologist | | | | | At | Signature | + + + + + + | Folate | 8.6Comment: Testing | ng/mL | EXTERNAL | | | | performed at [facility], [address] | | LAB | | | | [address], | | | | | | [place] [address] | | | | + + + + + + + + | Specimen | + + | Blood specimen | | (specimen) | + + + +---------+ + + | Performing | Address | City/State/Zipcode | Phone Number | | Organization | | | | + +---------+ + + | EXTERNAL LAB | | | | + +---------+ + + Vitamin B-12 (02/01/2015 10:03 AM PDT) + + + + + + | Component | Value | Ref Range | Performed | Pathologist | | | | | At | Signature | + + + + + + | VITAMIN | 1,134Comment: Testing | 254 - 1,320 | EXTERNAL | | | B-12 | performed at [facility], [address] | pg/mL | LAB | | | | [address], | | | | | | [place] [address] | | | | + + + [...] + +---------+ + + External Lab: CBC (02/01/2015 3:26 AM PDT) + + + + + + | Component | Value | Ref Range | Performed | Pathologist | | | | | At | Signature | + + + + + + | WBC | 8.36Comment: Testing | 3.80 - 11.00 | EXTERNAL | | | | performed at [facility], [address] | K/uL | LAB | | | | [address], | | | | | | [place] [address] | | | | + + + + + + | RED CELL | 2.72 (L)Comment: Testing | 3.70 - 5.10 | EXTERNAL | | | COUNT | performed at [facility], [address] | M/uL | LAB | | | | [address], | | | | | | [place] [address] | | | | + + + + + + | Hgb | 9.4 (L)Comment: Testing | 11.3 - 15.5 | EXTERNAL | | | | performed at [facility], [address] | g/dL | LAB | | | | [address], | | | | | | [place] [address] | | | | + + + + + + | Hematocrit, | 29.1 (L)Comment: Testing | 34.0 - 46.0 % | EXTERNAL | | | POC | performed at [facility], [address] | | LAB | | | | [address], | | | | | | [place] [address] | | | | + + + + + + | MCV | 107.3 (H)Comment: | 80.0 - 100.0 fl | EXTERNAL | | | | Testing performed at | | LAB | | | | [facility], [address] [facility] | | | | | | [place] | | | | | | [id number] | | | | + + + + + + | MCH | 34.6 (H)Comment: Testing | 27.0 - 34.0 pg | EXTERNAL | | | | performed at [facility], [address] | | LAB | | | | [address], | | | | | | [place] [address] | | | | + + + + + + | MCHC | 32.2Comment: Testing | 32.0 - 35.5 | EXTERNAL | | | | performed at [facility], [address] | g/dL | LAB | | | | [address], | | | | | | [place] [address] | | | | + + + + + + | RDW-CV | 57.3 (H)Comment: Testing | 37 - 53 fl | EXTERNAL | | | | performed at [facility], [address] | | LAB | | | | [address], | | | | | | [place] [address] | | | | + + + + + + | Platelet | 174Comment: Testing | 150 - 400 K/uL | EXTERNAL | | | Count | performed at [facility], [address] | | LAB | | | Plasma | [address], | | | | | | [place] [address] | | | | + + + + + + | MPV | 10.9Comment: Testing | fl | EXTERNAL | | | | performed at [facility], [address] | | LAB | | | | [address], | | | | | | [place] [address] | | | | + + + + + + | Differentia | MANUALComment: Testing | | EXTERNAL | | | l Type | performed at [facility], [address] | | LAB | | | | [address], | | | | | | [place], [place] [address] | | | | + + + + + + | Segmented | 45Comment: Testing | % | EXTERNAL | | | Neutrophils | performed at [facility], [address] | | LAB | | | Manual | [address], | | | | | | [place], [place] [address] | | | | + + + + + + | % Bands | 1Comment: Testing | % | EXTERNAL | | | | performed at [facility], [address] | | LAB | | | | [address], | | | | | | [place], [place] [address] | | | | + + + + + + | Lymphocytes | 34Comment: Testing | % | EXTERNAL | | | Manual | performed at [facility], [address] | | LAB | | | | [address], | | | | | | [place] [address] | | | | + + + + + + | Monocytes | 11Comment: Testing | % | EXTERNAL | | | Manual | performed at [facility], [address] | | LAB | | | | [address], | | | | | | [place] [address] | | | | + + + + + + | Eosinophils | 9Comment: Testing | % | EXTERNAL | | | Manual | performed at [facility], [address] | | LAB | | | | [address], | | | | | | [place] [address] | | | | + + + + + + | Absolute | 3.77Comment: Testing | 1.90 - 7.40 | EXTERNAL | | | Neutrophils | performed at [facility], [address] | [address] | LAB | | | | [address], | | | | | | [place] [address] | | | | + + + + + + | Bands | 0.08Comment: Testing | 0.00 - 0.20 | EXTERNAL | | | Manual | performed at [facility], [address] | [address] | LAB | | | | [address], | | | | | | [place] [address] | | | | + + + + + + | Absolute | 2.84Comment: Testing | 1.00 - 3.90 | EXTERNAL | | | Lymphocytes | performed at [facility], [address] | [address] | LAB | | | | [address], | | | | | | [place] [address] | | | | + + + + + + | Absolute | 0.92 (H)Comment: Testing | 0.00 - 0.80 | EXTERNAL | | | Monocytes | performed at [facility], [address] | [address] | LAB | | | | [address], | | | | | | [place] [address] | | | | + + + + + + | Absolute | 0.75 (H)Comment: Testing | 0.00 - 0.50 | EXTERNAL | | | Eosinophils | performed at [facility], [address] | [address] | LAB | | | | [address], | | | | | | [place] [address] | | | | + + + + + + | RBC | NORMAL PLT MORPHComment: | | EXTERNAL | | | Morphology | NORMAL RBC MORPHTesting | | LAB | | | | performed at [facility], [address] | | | | | [address], | | | | | | [place] [address] | | | | + + + + + + + + | Specimen | + + | Blood specimen | | (specimen) | + + + +---------+ + + | Performing | Address | City/State/Zipcode | Phone Number | | Organization | | | | + +---------+ + + | EXTERNAL LAB | | | | + +---------+ + + Phosphorus (02/01/2015 3:26 AM PDT) + + + + + + | Component | Value | Ref Range | Performed | Pathologist | | | | | At | Signature | + + + + + + | PHOSPHORUS | 2.6Comment: Testing | 2.3 - 4.8 mg/dL | EXTERNAL | | | | performed at [facility], [address] | | LAB | | | | [address], | | | | | | [place] [address] | | | | + + + + + + + + | Specimen | + + | Blood specimen | | (specimen) | + + + +---------+ + + | Performing | Address | City/State/Zipcode | Phone Number | | Organization | | | | + +---------+ + + | EXTERNAL LAB | | | | + +---------+ + + Magnesium (02/01/2015 3:26 AM PDT) + + + + + [...] | LAB | | | | [address], | | | | | | [place] [address] | | | | + + + [...] + +---------+ + + Comprehensive Metabolic Panel (02/01/2015 3:26 AM PDT) + + + + + + | Component | Value | Ref Range | Performed | Pathologist | | | | | At | Signature | + + + + + + | Na | 137Comment: Testing | 135 - 143 | EXTERNAL | | | | performed at [facility], [address] | mmol/L | LAB | | | | [address], | | | | | | [place] [address] | | | | + + + + + + | K | 3.8Comment: Testing | 3.5 - 4.9 | EXTERNAL | | | | performed at [facility], [address] | mmol/L | LAB | | | | [address], | | | | | | [place] [address] | | | | + + + + + + | Cl | 111 (H)Comment: Testing | 99 - 109 mmol/L | EXTERNAL | | | | performed at [facility], [address] | | LAB | | | | [address], | | | | | | [place] [address] | | | | + + + + + + | CO2 | 25Comment: Testing | 23 - 32 mmol/L | EXTERNAL | | | | performed at [facility], [address] | | LAB | | | | [address], | | | | | | [place] [address] | | | | + + + + + + | Anion Gap | 5Comment: Testing | 5 - 20 mmol/L | EXTERNAL | | | | performed at [facility], [address] | | LAB | | | | [address], | | | | | | [place] [address] | | | | + + + + + + | Glucose, | 112 (H)Comment: Testing | 65 - 99 mg/dL | EXTERNAL | | | Fasting | performed at [facility], [address] | | LAB | | | | [address], | | | | | | [place] [address] | | | | + + + + + + | BUN | 13Comment: Testing | 8 - 25 mg/dL | EXTERNAL | | | | performed at [facility], [address] | | LAB | | | | [address], | | | | | | [place] [address] | | | | + + + + + + | Creatinine | 0.74Comment: Testing | 0.50 - 1.00 | EXTERNAL | | | | performed at [facility], [address] | mg/dL | LAB | | | | [address], | | | | | | [place] [address] | | | | + + + + + + | BUN/Creatin | 18Comment: Testing | | EXTERNAL | | | ine Ratio | performed at [facility], [address] | | LAB | | | | [address], | | | | | | [place] [address] | | | | + + + + + + | Calcium | 8.0 (L)Comment: Testing | 8.5 - 10.5 | EXTERNAL | | | | performed at [facility], [address] | mg/dL | LAB | | | | [address], | | | | | | [place] [address] | | | | + + + + + + | Protein, | 5.9 (L)Comment: Testing | 6.3 - 8.2 g/dL | EXTERNAL | | | Total | performed at [facility], [address] | | LAB | | | | [address], | | | | | | [place] [address] | | | | + + + + + + | Albumin | 2.6 (L)Comment: Testing | 3.3 - 4.8 g/dL | EXTERNAL | | | | performed at [facility], [address] | | LAB | | | [address], | | | | | | [place] [address] | | | | + + + + + + | Globulin | 3.3Comment: Testing | 1.3 - 4.9 g/dL | EXTERNAL | | | | performed at [facility], [address] | | LAB | | | | [address], | | | | | | [place] [address] | | | | + + + + + + | A/G Ratio | 0.8 (L)Comment: Testing | 1.0 - 2.4 | EXTERNAL | | | | performed at [facility], [address] | | LAB | | | | [address], | | | | | | [place] [address] | | | | + + + + + + | Bilirubin | 0.4Comment: Testing | 0.1 - 1.5 mg/dL | EXTERNAL | | | Total | performed at [facility], [address] | | LAB | | | [address], | | | | | | [place] [address] | | | | + + + + + + | ALP, | 93Comment: Testing | 35 - 115 U/L | EXTERNAL | | | External | performed at [facility], [address] | | LAB | | | | [address], | | | | | | [place] [address] | | | | + + + + + + | AST | 23Comment: Testing | 10 - 45 U/L | EXTERNAL | | | | performed at [facility], [address] | | LAB | | | | [address], | | | | | | [place] [address] | | | | + + + + + + | ALT | 14Comment: Testing | 10 - 65 U/L | EXTERNAL | | | | performed at [facility], [address] | | LAB | | | | [address], | | | | | | [place] [address] | | | | + + + [...] [address] | | | | | [address], | | | | | | [place] [address] | | | | + + + [...] + +---------+ + + External Lab: CBC (01/31/2015 4:37 AM PDT) + + + + + + | Component | Value | Ref Range | Performed | Pathologist | | | | | At | Signature | + + + + + + | WBC | 10.30Comment: Testing | 3.80 - 11.00 | EXTERNAL | | | | performed at [facility], [address] | K/[address] | LAB | | | | [address], | | | | | | [place] [address] | | | | + + + + + + | RED CELL | 2.78 (L)Comment: Testing | 3.70 - 5.10 | EXTERNAL | | | COUNT | performed at [facility], [address] | [address] | LAB | | | | [address], | | | | | | [place] [address] | | | | + + + + + + | Hgb | 9.7 (L)Comment: Testing | 11.3 - 15.5 | EXTERNAL | | | | performed at [facility], [address] | g/dL | LAB | | | | [address], | | | | | | [place] [address] | | | | + + + + + + | Hematocrit, | 29.9 (L)Comment: Testing | 34.0 - 46.0 % | EXTERNAL | | | POC | performed at [facility], [address] | | LAB | | | | [address], | | | | | | [place] [address] | | | | + + + + + + | MCV | 107.5 (H)Comment: | 80.0 - 100.0 fl | EXTERNAL | | | | Testing performed at | | LAB | | | | [facility], [address] [facility] | | | | | | [place] | | | | | | [address] | | | | + + + + + + | MCH | 34.9 (H)Comment: Testing | 27.0 - 34.0 pg | EXTERNAL | | | | performed at [facility], [address] | | LAB | | | | [address], | | | | | | [place] [address] | | | | + + + + + + | MCHC | 32.5Comment: Testing | 32.0 - 35.5 | EXTERNAL | | | | performed at [facility], [address] | g/dL | LAB | | | | [address], | | | | | | [place] [address] | | | | + + + + + + | RDW-CV | 57.3 (H)Comment: Testing | 37 - 53 fl | EXTERNAL | | | | performed at [facility], [address] | | LAB | | | | [address], | | | | | | [place] [address] | | | | + + + + + + | Platelet | 162Comment: Testing | 150 - 400 K/uL | EXTERNAL | | | Count | performed at [facility], [address] | | LAB | | | Plasma | [address], | | | | | | [place] [address] | | | | + + + + + + | MPV | 11.6Comment: Testing | fl | EXTERNAL | | | | performed at [facility], [address] | | LAB | | | | [address], | | | | | | [place], [place] [address] | | | | + + + + + + | Differentia | MANUALComment: Testing | | EXTERNAL | | | l Type | performed at [facility], [address] | | LAB | | | | [address], | | | | | | [place], [place] [address] | | | | + + + + + + | Segmented | 31Comment: Testing | % | EXTERNAL | | | Neutrophils | performed at [facility], [address] | | LAB | | | Manual | [address], | | | | | | [place], [place] [address] | | | | + + + + + + | Lymphocytes | 52Comment: Testing | % | EXTERNAL | | | Manual | performed at [facility], [address] | | LAB | | | | [address], | | | | | | [place] [address] | | | | + + + + + + | Monocytes | 11Comment: Testing | % | EXTERNAL | | | Manual | performed at [facility], [address] | | LAB | | | | [address], | | | | | | [place] [address] | | | | + + + + + + | Eosinophils | 6Comment: Testing | % | EXTERNAL | | | Manual | performed at [facility], [address] | | LAB | | | | [address], | | | | | | [place] [address] | | | | + + + + + + | Absolute | 3.19Comment: Testing | 1.90 - 7.40 | EXTERNAL | | | Neutrophils | performed at [facility], [address] | [address] | LAB | | | | [address], | | | | | | [place] [address] | | | | + + + + + + | Absolute | 5.36 (H)Comment: Testing | 1.00 - 3.90 | EXTERNAL | | | Lymphocytes | performed at [facility], [address] | [address] | LAB | | | | [address], | | | | | | [place] [address] | | | | + + + + + + | Absolute | 1.13 (H)Comment: Testing | 0.00 - 0.80 | EXTERNAL | | | Monocytes | performed at [facility], [address] | [address] | LAB | | | | [address], | | | | | | [place] [address] | | | | + + + + + + | Absolute | 0.62 (H)Comment: Testing | 0.00 - 0.50 | EXTERNAL | | | Eosinophils | performed at [facility], [address] | [address] | LAB | | | | [address], | | | | | | [place] [address] | | | | + + + + + + | RBC | 2+Comment: MACRONORMAL | | EXTERNAL | | | Morphology | PLT MORPHTesting | | LAB | | | | performed at [facility], [address] | | | | | | [address], | | | | | | [place] [address] | | | | | | | [...] | | + +---------+ + + Phosphorus (01/31/2015 4:37 AM PDT) + + + + + + | Component | Value | Ref Range | Performed | Pathologist | | | | | At | Signature | + + + + + + | PHOSPHORUS | 2.1 (L)Comment: Testing | 2.3 - 4.8 mg/dL | EXTERNAL | | | | performed at [facility], [address] | | LAB | | | | [address], | | | | | | [place] [address] | | | | + + + + + + + + | Specimen | + + | Blood specimen | | (specimen) | + + + +---------+ + + | Performing | Address | City/State/Zipcode | Phone Number | | Organization | | | | + +---------+ + + | EXTERNAL LAB | | | | + +---------+ + + Magnesium (01/31/2015 4:37 AM PDT) + + + + + + | Component | Value | Ref Range | Performed | Pathologist | | | | | At | Signature | + + + + + + | Magnesium | 1.6 (L)Comment: Testing | 1.7 - 2.4 mg/dL | EXTERNAL | | | | performed at [facility], [address] | | LAB | | | | [address], | | | | | | [place] [address] | | | | + + + [...] + +---------+ + + Comprehensive Metabolic Panel (01/31/2015 4:37 AM PDT) + + + + + + | Component | Value | Ref Range | Performed | Pathologist | | | | | At | Signature | + + + + + + | Na | 139Comment: Testing | 135 - 143 | EXTERNAL | | | | performed at [facility], [address] | mmol/L | LAB | | | | [address], | | | | | | [place] [address] | | | | + + + + + + | K | 4.2Comment: Testing | 3.5 - 4.9 | EXTERNAL | | | | performed at [facility], [address] | mmol/L | LAB | | | | [address], | | | | | | [place] [address] | | | | + + + + + + | Cl | 112 (H)Comment: Testing | 99 - 109 mmol/L | EXTERNAL | | | | performed at [facility], [address] | | LAB | | | | [address], | | | | | | [place] [address] | | | | + + + + + + | CO2 | 27Comment: Testing | 23 - 32 mmol/L | EXTERNAL | | | | performed at [facility], [address] | | LAB | | | | [address], | | | | | | [place] [address] | | | | + + + + + + | Anion Gap | 4 (L)Comment: Testing | 5 - 20 mmol/L | EXTERNAL | | | | performed at [facility], [address] | | LAB | | | | [address], | | | | | | [place] [address] | | | | + + + + + + | Glucose, | 94Comment: Testing | 65 - 99 mg/dL | EXTERNAL | | | Fasting | performed at [facility], [address] | | LAB | | | | [address], | | | | | | [place] [address] | | | | + + + + + + | BUN | 19Comment: Testing | 8 - 25 mg/dL | EXTERNAL | | | | performed at [facility], [address] | | LAB | | | | [address], | | | | | | [place] [address] | | | | + + + + + + | Creatinine | 1.01 (H)Comment: Testing | 0.50 - 1.00 | EXTERNAL | | | | performed at [facility], [address] | mg/dL | LAB | | | | [address], | | | | | | [place] [address] | | | | + + + + + + | BUN/Creatin | 19Comment: Testing | | EXTERNAL | | | ine Ratio | performed at [facility], [address] | | LAB | | | | [address], | | | | | | [place] [address] | | | | + + + + + + | Calcium | 8.1 (L)Comment: Testing | 8.5 - 10.5 | EXTERNAL | | | | performed at [facility], [address] | mg/dL | LAB | | | | [address], | | | | | | [place] [address] | | | | + + + + + + | Protein, | 5.9 (L)Comment: Testing | 6.3 - 8.2 g/dL | EXTERNAL | | | Total | performed at [facility], [address] | | LAB | | | | [address], | | | | | | [place] [address] | | | | + + + + + + | Albumin | 2.5 (L)Comment: Testing | 3.3 - 4.8 g/dL | EXTERNAL | | | | performed at [facility], [address] | | LAB | | | | [address], | | | | | | [place] [address] | | | | + + + + + + | Globulin | 3.4Comment: Testing | 1.3 - 4.9 g/dL | EXTERNAL | | | | performed at [facility], [address] | | LAB | | | | [address], | | | | | | [place] [address] | | | | + + + + + + | A/G Ratio | 0.7 (L)Comment: Testing | 1.0 - 2.4 | EXTERNAL | | | | performed at [facility], [address] | | LAB | | | | [address], | | | | | | [place] [address] | | | | + + + + + + | Bilirubin | 0.3Comment: Testing | 0.1 - 1.5 mg/dL | EXTERNAL | | | Total | performed at [facility], [address] | | LAB | | | | [address], | | | | | | [place] [address] | | | | + + + + + + | ALP, | 98Comment: Testing | 35 - 115 U/L | EXTERNAL | | | External | performed at [facility], [address] | | LAB | | | | [address], | | | | | | [place] [address] | | | | + + + + + + | AST | 24Comment: Testing | 10 - 45 U/L | EXTERNAL | | | | performed at [facility], [address] | | LAB | | | | [address], | | | | | | [place] [address] | | | | + + + + + + | ALT | 14Comment: Testing | 10 - 65 U/L | EXTERNAL | | | | performed at [facility], [address] | | LAB | | | | [facility], | | | | | | [place] [address] | | | | + + + [...] W | | | | | | [facility], | | | | | | [place] [address] | | | | + + + + + + + + | Specimen | + + | Blood specimen | | (specimen) | + + + +---------+ + + | Performing | Address | City/State/Zipcode | Phone Number | | Organization | | | | + +---------+ + + | EXTERNAL LAB | | | | + +---------+ + + XR Chest 2 Vws (01/30/2015 8:45 AM PDT) + + | Specimen | + + | | + + + + + | Impressions | Performed At | + + + | 1. Improved aeration, with probable bilateral perihilar and right | | | basilar mild atelectasis. No definite infiltrates. 2. Borderline | | | cardiac enlargement. 3. Mild elevation right hemidiaphragm. | | | | | + + + + + + | Narrative | Performed At | + + + | HISTORY: Sepsis. COMPARISON: 01/28/15, 01/14/15. | | | TECHNIQUE: PA and lateral films of the chest. FINDINGS: Slight | | | elevation right hemidiaphragm. Persistent borderline cardiac | | | enlargement. Strandy changes bilateral perihilar regions and right | | | lung base. I would favor atelectasis. Improved aeration. Postoperative | | | changes in the left and right epigastrium. | | + + + + + | Procedure Note | + + | Hayden, Rad Conversion - 01/05/2019 4:32 AM PDT HISTORY:Sepsis. COMPARISON:01/28/15, | | 01/14/15. TECHNIQUE:PA and lateral films of the chest. FINDINGS:Slight elevation right | | hemidiaphragm. Persistent borderline cardiac enlargement. Strandy changes bilateral | | perihilar regions and right lung base. I would favor atelectasis. Improved aeration. | | Postoperative changes in the left and right epigastrium. IMPRESSION: 1. Improved | | aeration, with probable bilateral perihilar and right basilar mild atelectasis. No | | definite infiltrates.2. Borderline cardiac enlargement.3. Mild elevation right | | hemidiaphragm. | | | |FINDINGS: | |Slight elevation right hemidiaphragm. Persistent borderline cardiac enlargement. Strandy ch anges bilateral perihilar regions and right lung base. I would favor atelectasis. Improved a eration. Postoperative changes in the left and right epigastrium. | | | |IMPRESSION: | |1. Improved aeration, with probable bilateral perihilar and right basilar mild atelectasis . No definite infiltrates. | |2. Borderline cardiac enlargement. | |3. Mild elevation right hemidiaphragm. | | | | | + + External Lab: GREGG (01/30/2015 5:42 AM PDT) + + +---- + + + | Component | Value | Ref Range | Performed | Pathologist | | | | | At | Signature | + + +---- + + + | WBC | 15.91 (H)Comment: | 3.8 0 - 11.00 | EXTERNAL | | | | Testing performed at | K/u L | LAB | | | | [facility], [address] | | | | | | [place] | | | | | | [address] | | | | + + +---- + + + | RED CELL | 2.93 (L)Comment: Testing | 3.7 0 - 5.10 | EXTERNAL | | | COUNT | performed at [facility], [address] | [address] L | LAB | | | | [address], | | | | | | [place] [address] | | | | + + +---- + + + | Hgb | 10.2 (L)Comment: Testing | 11. 3 - 15.5 | EXTERNAL | | | | performed at [facility], [address] | g/d L | LAB | | | | [address], | | | | | | [place] [address] | | | | + + +---- + + + | Hematocrit, | 31.6 (L)Comment: Testing | 34. 0 - 46.0 % | EXTERNAL | | | POC | performed at [facility], [address] | | LAB | | | | [address], | | | | | | [place] [address] | | | | + + +---- + + + | MCV | 107.8 (H)Comment: | 80. 0 - 100.0 fl | EXTERNAL | | | | Testing performed at | | LAB | | | | [facility], [address] | | | | | | [place] | | | | | | [address] | | | | + + +---- + + + | MCH | 34.8 (H)Comment: Testing | 27. 0 - 34.0 pg | EXTERNAL | | | | performed at [facility], [address] | | LAB | | | | [address], | | | | | | [place] [address] | | | | + + +---- + + + | MCHC | 32.3Comment: Testing | 32. 0 - 35.5 | EXTERNAL | | | | performed at [facility], [address] | g/d L | LAB | | | | [address], | | | | | | [place] [address] | | | | + + +---- + + + | RDW-CV | 57.3 (H)Comment: Testing | 37 - 53 fl | EXTERNAL | | | | performed at [facility], [address] | | LAB | | | | [address], | | | | | | [place] [address] | | | | + + +---- + + + | Platelet | 146 (L)Comment: Testing | 150 - 400 K/uL | EXTERNAL | | | Count | performed at [facility], [address] | | LAB | | | Plasma | [address], | | | | | | [place] [address] | | | | + + +---- + + + | MPV | 11.2Comment: Testing | fl | EXTERNAL | | | | performed at [facility], [address] | | LAB | | | | [address], | | | | | | [place] [address] | | | | + + +---- + + + | Differentia | MANUALComment: Testing | | EXTERNAL | | | l Type | performed at [facility], [address] | | LAB | | | | [address], | | | | | | [place] [address] | | | | + + +---- + + + | Segmented | 58Comment: Testing | % | EXTERNAL | | | Neutrophils | performed at [facility], [address] | | LAB | | | Manual | [address], | | | | | | [place] [address] | | | | + + +---- + + + | % Bands | 20Comment: Testing | % | EXTERNAL | | | | performed at [facility], [address] | | LAB | | | | [address], | | | | | | [place] [address] | | | | + + +---- + + + | Lymphocytes | 13Comment: Testing | % | EXTERNAL | | | Manual | performed at [facility], [address] | | LAB | | | | [address], | | | | | | [place] [address] | | | | + + +---- + + + | Monocytes | 7Comment: Testing | % | EXTERNAL | | | Manual | performed at [facility], [address] | | LAB | | | | [address], | | | | | | [place] [address] | | | | + + +---- + + + | Eosinophils | 2Comment: Testing | % | EXTERNAL | | | Manual | performed at [facility], [address] | | LAB | | | | [address], | | | | | | [place] [address] | | | | + + +---- + + + | Absolute | 9.23 (H)Comment: Testing | 1.9 0 - 7.40 | EXTERNAL | | | Neutrophils | performed at [facility], [address] | K/[address] L | LAB | | | | [address], | | | | | | [place] [address] | | | | + + +---- + + + | Bands | 3.18 (H)Comment: Testing | 0.0 0 - 0.20 | EXTERNAL | | | Manual | performed at [facility], [address] | [address] | LAB | | | | [address], | | | | | | [place] [address] | | | | + + +---- + + + | Absolute | 2.07Comment: Testing | 1.0 0 - 3.90 | EXTERNAL | | | Lymphocytes | performed at [facility], [address] | K[address] | LAB | | | | [address], | | | | | | [place] [address] | | | | + + +---- + + + | Absolute | 1.11 (H)Comment: Testing | 0.0 0 - 0.80 | EXTERNAL | | | Monocytes | performed at [facility], [address] | [address] | LAB | | | | [address], | | | | | | [place] [address] | | | | + + +---- + + + | Absolute | 0.32Comment: Testing | 0.0 0 - 0.50 | EXTERNAL | | | Eosinophils | performed at [facility], [address] | K/[address] L | LAB | | | | [address], | | | | | | [place] [address] | | | | + + +---- + + + | RBC | 2+Comment: | | EXTERNAL | | | Morphology | MACRO1+ANISONORMAL PLT | | LAB | | | | MORPHTesting performed | | | | | | at [facility], [address] | | | | | | [place] [address], | | | | | | [place] [address] | | | | | |Testing performed at [facility], [address] [place] [address] | | | | | | | | | | + + +---- + + + + + | Specimen | + + | Blood specimen | | (specimen) | + + + +---------+ + + | Performing | Address | City/State/Zipcode | Phone Number | | Organization | | | | + +---------+ + + | EXTERNAL LAB | | | | + +---------+ + + Phosphorus (01/30/2015 5:42 AM PDT) + + + + + + | Component | Value | Ref Range | Performed | Pathologist | | | | | At | Signature | + + + + + + | PHOSPHORUS | 2.5Comment: Testing | 2.3 - 4.8 mg/dL | EXTERNAL | | | | performed at [facility], [address] | | LAB | | | | [address], | | | | | | [place] [address] | | | | + + + + + + + + | Specimen | + + | Blood specimen | | (specimen) | + + + +---------+ + + | Performing | Address | City/State/Zipcode | Phone Number | | Organization | | | | + +---------+ + + | EXTERNAL LAB | | | | + +---------+ + + Magnesium (01/30/2015 5:42 AM PDT) + + + + + + | Component | Value | Ref Range | Performed | Pathologist | | | | | At | Signature | + + + + + + | Magnesium | 1.9Comment: Testing | 1.7 - 2.4 mg/dL | EXTERNAL | | | | performed at [facility], [address] | | LAB | | | | [address], | | | | | | [place] [address] | | | | + + + [...] + +---------+ + + Comprehensive Metabolic Panel (01/30/2015 5:42 AM PDT) + + + + + + | Component | Value | Ref Range | Performed | Pathologist | | | | | At | Signature | + + + + + + | Na | 137Comment: Testing | 135 - 143 | EXTERNAL | | | | performed at [facility], [address] | mmol/L | LAB | | | | [address], | | | | | | [place] [address] | | | | + + + + + + | K | 3.9Comment: Testing | 3.5 - 4.9 | EXTERNAL | | | | performed at [facility], [address] | mmol/L | LAB | | | | [address], | | | | | | [place] [address] | | | | + + + + + + | Cl | 109Comment: Testing | 99 - 109 mmol/L | EXTERNAL | | | | performed at [facility], [address] | | LAB | | | | [address], | | | | | | [place] [address] | | | | + + + + + + | CO2 | 24Comment: Testing | 23 - 32 mmol/L | EXTERNAL | | | | performed at [facility], [address] | | LAB | | | | [address], | | | | | | [place] [address] | | | | + + + + + + | Anion Gap | 8Comment: Testing | 5 - 20 mmol/L | EXTERNAL | | | | performed at [facility], [address] | | LAB | | | | [address], | | | | | | [place] [address] | | | | + + + + + + | Glucose, | 98Comment: Testing | 65 - 99 mg/dL | EXTERNAL | | | Fasting | performed at [facility], [address] | | LAB | | | | [address], | | | | | | [place] [address] | | | | + + + + + + | BUN | 25Comment: Testing | 8 - 25 mg/dL | EXTERNAL | | | | performed at [facility], [address] | | LAB | | | | [address], | | | | | | [place] [address] | | | | + + + + + + | Creatinine | 1.39 (H)Comment: Testing | 0.50 - 1.00 | EXTERNAL | | | | performed at [facility], [address] | mg/dL | LAB | | | | [address], | | | | | | [place] [address] | | | | + + + + + + | BUN/Creatin | 18Comment: Testing | | EXTERNAL | | | ine Ratio | performed at [facility], [address] | | LAB | | | | [address], | | | | | | [place] [address] | | | | + + + + + + | Calcium | 8.2 (L)Comment: Testing | 8.5 - 10.5 | EXTERNAL | | | | performed at [facility], [address] | mg/dL | LAB | | | | [address], | | | | | | [place] [address] | | | | + + + + + + | Protein, | 6.1 (L)Comment: Testing | 6.3 - 8.2 g/dL | EXTERNAL | | | Total | performed at [facility], [address] | | LAB | | | | [address], | | | | | | [place] [address] | | | | + + + + + + | Albumin | 2.4 (L)Comment: Testing | 3.3 - 4.8 g/dL | EXTERNAL | | | | performed at [facility], [address] | | LAB | | | | [address], | | | | | | [place] [address] | | | | + + + + + + | Globulin | 3.7Comment: Testing | 1.3 - 4.9 g/dL | EXTERNAL | | | | performed at [facility], [address] | | LAB | | | | [address], | | | | | | [place] [address] | | | | + + + + + + | A/G Ratio | 0.6 (L)Comment: Testing | 1.0 - 2.4 | EXTERNAL | | | | performed at [facility], [address] | | LAB | | | | [address], | | | | | | [place] [address] | | | | + + + + + + | Bilirubin | 0.4Comment: Testing | 0.1 - 1.5 mg/dL | EXTERNAL | | | Total | performed at [facility], [address] | | LAB | | | | [address], | | | | | | [place] [address] | | | | + + + + + + | ALP, | 111Comment: Testing | 35 - 115 U/L | EXTERNAL | | | External | performed at [facility], [address] | | LAB | | | | [address], | | | | | | [place] [address] | | | | + + + + + + | AST | 29Comment: Testing | 10 - 45 U/L | EXTERNAL | | | | performed at [facility], [address] | | LAB | | | | [address], | | | | | | [place] [address] | | | | + + + + + + | ALT | 14Comment: Testing | 10 - 65 U/L | EXTERNAL | | | | performed at [facility], [address] | | LAB | | | | [address], | | | | | | [place] [address] | | | | + + + + + + | Estimated | 40 (L)Comment: GFR <60: | mL/min/1.73m2 | EXTERNAL [...] | | | | | | at [facility], [address] | | | | | | [address], | | | | | | [place] [address] | | | | + + + [...] + +---------+ + + External Lab: CBC (01/29/2015 7:00 PM PDT) + + + + + + | Component | Value | Ref Range | Performed | Pathologist | | | | | At | Signature | + + + + + + | WBC | 17.94 (H)Comment: | 3.80 - 11.00 | EXTERNAL | | | | Testing performed at | K/uL | LAB | | | | [facility], [address] [facility] | | | | | | [place] | | | | | | [address] | | | | + + + + + + | RED CELL | 3.12 (L)Comment: Testing | 3.70 - 5.10 | EXTERNAL | | | COUNT | performed at [facility], [address] | M/uL | LAB | | | | [address], | | | | | | [place] [address] | | | | + + + + + + | Hgb | 10.8 (L)Comment: Testing | 11.3 - 15.5 | EXTERNAL | | | | performed at [facility], [address] | g/dL | LAB | | | | [address], | | | | | | [place] [address] | | | | + + + + + + | Hematocrit, | 33.7 (L)Comment: Testing | 34.0 - 46.0 % | EXTERNAL | | | POC | performed at [facility], [address] | | LAB | | | | [address], | | | | | | [place] [address] | | | | + + + + + + | MCV | 108.0 (H)Comment: | 80.0 - 100.0 fl | EXTERNAL | | | | Testing performed at | | LAB | | | | [facility], [address] | | | | | | [place] | | | | | | [address] | | | | + + + + + + | MCH | 34.7 (H)Comment: Testing | 27.0 - 34.0 pg | EXTERNAL | | | | performed at [facility], [address] | | LAB | | | | [address], | | | | | | [place] [address] | | | | + + + + + + | MCHC | 32.1Comment: Testing | 32.0 - 35.5 | EXTERNAL | | | | performed at [facility], [address] | g/dL | LAB | | | | [address], | | | | | | [place] [address] | | | | + + + + + + | RDW-CV | 55.6 (H)Comment: Testing | 37 - 53 fl | EXTERNAL | | | | performed at [facility], [address] | | LAB | | | | [address], | | | | | | [place] [address] | | | | + + + + + + | Platelet | 153Comment: Testing | 150 - 400 K/uL | EXTERNAL | | | Count | performed at [facility], [address] | | LAB | | | Plasma | [address], | | | | | | [place] [address] | | | | + + + + + + | MPV | 11.2Comment: Testing | fl | EXTERNAL | | | | performed at [facility], [address] | | LAB | | | | [address], | | | | | | [place], [place] [address] | | | | + + + + + + | Differentia | MANUALComment: Testing | | EXTERNAL | | | l Type | performed at [facility], [address] | | LAB | | | | [address], | | | | | | [place], [place] [address] | | | | + + + + + + | Segmented | 64Comment: Testing | % | EXTERNAL | | | Neutrophils | performed at [facility], [address] | | LAB | | | Manual | [address], | | | | | | [place] [address] | | | | + + + + + + | % Bands | 15Comment: Testing | % | EXTERNAL | | | | performed at [facility], [address] | | LAB | | | | [address], | | | | | | [place] [address] | | | | + + + + + + | % | 2Comment: Testing | % | EXTERNAL | | | Metamyelocy | performed at [facility], [address] | | LAB | | | [address]ma | [address], | | | | | | [place] [address] | | | | + + + + + + | Lymphocytes | 12Comment: Testing | % | EXTERNAL | | | Manual | performed at [facility], [address] | | LAB | | | | [address], | | | | | | [place] [address] | | | | + + + + + + | Monocytes | 6Comment: Testing | % | EXTERNAL | | | Manual | performed at [facility], [address] | | LAB | | | | [address], | | | | | | [place] [address] | | | | + + + + + + | Eosinophils | 1Comment: Testing | % | EXTERNAL | | | Manual | performed at [facility], [address] | | LAB | | | | [address], | | | | | | [place] [address] | | | | + + + + + + | Absolute | 11.48 (H)Comment: | 1.90 - 7.40 | EXTERNAL | | | Neutrophils | Testing performed at | K/uL | LAB | | | | [facility], [address] [facility] | | | | | | [place] | | | | | | [address] | | | | + + + + + + | Bands | 2.69 (H)Comment: Testing | 0.00 - 0.20 | EXTERNAL | | | Manual | performed at [facility], [address] | [address] | LAB | | | | [address], | | | | | | [place] [address] | | | | + + + + + + | Absolute | 0.36 (H)Comment: Testing | K/uL | EXTERNAL | | | Metamyelocy | performed at [facility], [address] | | LAB | | | irma | [address], | | | | | | [place] [address] | | | | + + + + + + | Absolute | 2.15Comment: Testing | 1.00 - 3.90 | EXTERNAL | | | Lymphocytes | performed at [facility], [address] | K[address]L | LAB | | | | [address], | | | | | | [place] [address] | | | | + + + + + + | Absolute | 1.08 (H)Comment: Testing | 0.00 - 0.80 | EXTERNAL | | | Monocytes | performed at [facility], [address] | [address]L | LAB | | | | [address], | | | | | | [place] [address] | | | | + + + + + + | Absolute | 0.18Comment: Testing | 0.00 - 0.50 | EXTERNAL | | | Eosinophils | performed at [facility], [address] | K[address]L | LAB | | | | [address], | | | | | | [place] [address] | | | | + + + + + + | RBC | 2+Comment: MACRONORMAL | | EXTERNAL | | | Morphology | PLT MORPHTesting | | LAB | | | | performed at [facility], [address] | | | | | | [address], | | | | | | [place] [address] | | | | | | | [...] + +---------+ + + Basic Metabolic Panel (01/29/2015 7:00 PM PDT) + + + + + + | Component | Value | Ref Range | Performed | Pathologist | | | | | At | Signature | + + + + + + | Na | 142Comment: Testing | 135 - 143 | EXTERNAL | | | | performed at [facility];[address] | mmol/L | LAB | | | | [address];[place] | | | | | | [address] | | | | + + + + + + | K | 3.8Comment: Testing | 3.5 - 4.9 | EXTERNAL | | | | performed at [facility];[address] | mmol/L | LAB | | | | [address];[place] | | | | | | [address] | | | | + + + + + + | Cl | 107Comment: Testing | 99 - 109 mmol/L | EXTERNAL | | | | performed at [facility];[address] | | LAB | | | | [address];[place] | | | | | | [address] | | | | + + + + + + | CO2 | 26Comment: Testing | 23 - 32 mmol/L | EXTERNAL | | | | performed at [facility];[address] | | LAB | | | | [address];[place] | | | | | | [address] | | | | + + + + + + | Anion Gap | 12Comment: Testing | 5 - 20 mmol/L | EXTERNAL | | | | performed at [facility];[address] | | LAB | | | | [address];[place] | | | | | | [address] | | | | + + + + + + | Glucose, | 127 (H)Comment: Testing | 65 - 99 mg/dL | EXTERNAL | | | Fasting | performed at [facility];[address] | | LAB | | | | [address];[place] | | | | | | [address] | | | | + + + + + + | BUN | 28 (H)Comment: Testing | 8 - 25 mg/dL | EXTERNAL | | | | performed at [facility];[address] | | LAB | | | | [address];[place] | | | | | | [address] | | | | + + + + + + | Creatinine | 1.8 (H)Comment: Testing | 0.50 - 1.00 | EXTERNAL | | | | performed at [facility];[address] | mg/dL | LAB | | | | [address];[place] | | | | | | [address] | | | | + + + + + + | BUN/Creatin | 16Comment: Testing | | EXTERNAL | | | ine Ratio | performed at [facility];[address] | | LAB | | | | [address];[place] | | | | | | [address] | | | | + + + + + + | Calcium | 7.6 (L)Comment: Testing | 8.5 - 10.5 | EXTERNAL | | | | performed at [facility];[address] | mg/dL | LAB | | | | [address];[place] | | | | | | [address] | | | | + + + + + + | Estimated | 30 (L)Comment: GFR <60: | mL/min/1.73m2 | EXTERNAL [...] | | | | | | at [facility];[address];[place] [address] | | | | + + + + + + + + | Specimen | + + | Blood specimen | | (specimen) | + + + +---------+ + + | Performing | Address | City/State/Zipcode | Phone Number | | Organization | | | | + +---------+ + + | EXTERNAL LAB | | | | + +---------+ + + XR Foot Left 3 + Vw (01/29/2015 2:48 PM PDT) + + | Specimen | + + | | + + + + + | Impressions | Performed At | + + + | 1. Subtle lucency within the distal first metatarsal that may | | | represent a small chip fracture or could be projectional in nature. | | | Correlate with point tenderness. | | + + + + + + | Narrative | Performed At | + + + | COLE ERNST XR FOOT LEFT HISTORY: 69 years. Female. Fall | | | TECHNIQUE: 3 views left foot COMPARISON: None. FINDINGS: | | | Small inferior calcaneal spur. Subtle lucency within the distal | | | first metatarsal which may be projectional in nature or small chip | | | fracture. Correlate with point tenderness. Bipartite medial sesamoid. | | | | | + + + + + | Procedure Note | + + | Manuel Blake - 01/05/2019 4:32 AM PDT COLE PARRY FOOT LEFT HISTORY:69 | | years. Female. Fall TECHNIQUE:3 views left foot COMPARISON:None. FINDINGS:Small | | inferior calcaneal spur. Subtle lucency within the distal first metatarsal which may be | | projectional in nature or small chip fracture. Correlate with point tenderness. | | Bipartite medial sesamoid. IMPRESSION: 1. Subtle lucency within the distal first | | metatarsal that may represent a small chip fracture or could be projectional in nature. | | Correlate with point tenderness. | | 5:53 PM | | | |COMPARISON: | |None. | | | |FINDINGS: | |Small inferior calcaneal spur. Subtle lucency within the distal first metatarsal which may be projectional in nature or small chip fracture. Correlate with point tenderness. Bipartite medial sesamoid. | | | |IMPRESSION: | |1. Subtle lucency within the distal first metatarsal that may represent a small chip fract ure or could be projectional in nature. Correlate with point tenderness. | | | | | + + Procalcitonin (01/29/2015 4:35 AM PDT) + + + + + + | Component | Value | Ref Range | Performed | Pathologist | | | | | At | Signature | + + + + + + | PROCALCITON | 16.93 (H)Comment: | ng/mL | EXTERNAL | | | [...] | | | | | | at [facility];[address] [place] [address] | | | | | | [facility];[place] [address] | | | | + + + + + + + + | Specimen | + + | | + + + +---------+ + + | Performing | Address | City/State/Zipcode | Phone Number | | Organization | | | | + +---------+ + + | EXTERNAL LAB | | | | + +---------+ + + External Lab: CBC (01/29/2015 4:35 AM PDT) + + +---- + + + | Component | Value | Ref Range | Performed | Pathologist | | | | | At | Signature | + + +---- + + + | WBC | 18.47 (H)Comment: | 3.8 0 - 11.00 | EXTERNAL | | | | Testing performed at | K/u L | LAB | | | | [facility], [address] [facility] | | | | | | [place] | | | | | | [address] | | | | + + +---- + + + | RED CELL | 3.07 (L)Comment: Testing | 3.7 0 - 5.10 | EXTERNAL | | | COUNT | performed at [facility], [address] | M/[address] L | LAB | | | | [address], | | | | | | [place] [address] | | | | + + +---- + + + | Hgb | 10.8 (L)Comment: Testing | 11. 3 - 15.5 | EXTERNAL | | | | performed at [facility], [address] | g/d L | LAB | | | | [address] [place], | | | | | | [place] [address] | | | | + + +---- + + + | Hematocrit, | 32.7 (L)Comment: Testing | 34. 0 - 46.0 % | EXTERNAL | | | POC | performed at [facility], [address] | | LAB | | | | [address], | | | | | | [place] [address] | | | | + + +---- + + + | MCV | 106.4 (H)Comment: | 80. 0 - 100.0 fl | EXTERNAL | | | | Testing performed at | | LAB | | | | [facility], [address] | | | | | | [place] | | | | | | [address] | | | | + + +---- + + + | MCH | 35.1 (H)Comment: Testing | 27. 0 - 34.0 pg | EXTERNAL | | | | performed at [facility], [address] | | LAB | | | | [address], | | | | | | [place] [address] | | | | + + +---- + + + | MCHC | 33.0Comment: Testing | 32. 0 - 35.5 | EXTERNAL | | | | performed at [facility], [address] | g/d L | LAB | | | | [address], | | | | | | [place] [address] | | | | + + +---- + + + | RDW-CV | 56.0 (H)Comment: Testing | 37 - 53 fl | EXTERNAL | | | | performed at [facility], [address] | | LAB | | | | [address], | | | | | | [place] [address] | | | | + + +---- + + + | Platelet | 151Comment: Testing | 150 - 400 K/uL | EXTERNAL | | | Count | performed at [facility], [address] | | LAB | | | Plasma | [address], | | | | | | [place] [address] | | | | + + +---- + + + | MPV | 11.7Comment: Testing | fl | EXTERNAL | | | | performed at [facility], [address] | | LAB | | | | [address] [place], | | | | | | [place] [address] | | | | + + +---- + + + | Differentia | MANUALComment: Testing | | EXTERNAL | | | l Type | performed at [facility], [address] | | LAB | | | | [address] [place], | | | | | | [place] [address] | | | | + + +---- + + + | Segmented | 57Comment: Testing | % | EXTERNAL | | | Neutrophils | performed at [facility], [address] | | LAB | | | Manual | [address] [place], | | | | | | [place] [address] | | | | + + +---- + + + | % Bands | 26Comment: Testing | % | EXTERNAL | | | | performed at [facility], [address] | | LAB | | | | [address] [place], | | | | | | [place] [address] | | | | + + +---- + + + | % | 4Comment: Testing | % | EXTERNAL | | | Metamyelocy | performed at [facility], [address] | | LAB | | | irma | [address] [place], | | | | | | [place] [address] | | | | + + +---- + + + | Lymphocytes | 9Comment: Testing | % | EXTERNAL | | | Manual | performed at [facility], [address] | | LAB | | | | [address], | | | | | | [place] [address] | | | | + + +---- + + + | Monocytes | 4Comment: Testing | % | EXTERNAL | | | Manual | performed at [facility], [address] | | LAB | | | | [address] [place], | | | | | | [place] [address] | | | | + + +---- + + + | Absolute | 10.53 (H)Comment: | 1.9 0 - 7.40 | EXTERNAL | | | Neutrophils | Testing performed at | K/u L | LAB | | | | [facility], [address] | | | | | | [place] | | | | | | [address] | | | | + + +---- + + + | Bands | 4.80 (H)Comment: Testing | 0.0 0 - 0.20 | EXTERNAL | | | Manual | performed at [facility], [address] | K/[address] L | LAB | | | | [address], | | | | | | [place] [address] | | | | + + +---- + + + | Absolute | 0.74 (H)Comment: Testing | K/u L | EXTERNAL | | | Metamyelocy | performed at [facility], [address] | | LAB | | | irma | [address], | | | | | | [place] [address] | | | | + + +---- + + + | Absolute | 1.66Comment: Testing | 1.0 0 - 3.90 | EXTERNAL | | | Lymphocytes | performed at [facility], [address] | K/u L | LAB | | | | [address], | | | | | | [place] [address] | | | | + + +---- + + + | Absolute | 0.74Comment: Testing | 0.0 0 - 0.80 | EXTERNAL | | | Monocytes | performed at [facility], [address] | K[address] L | LAB | | | [address], | | | | | | [place] [address] | | | | + + +---- + + + | RBC | 2+Comment: | | EXTERNAL | | | Morphology | MACRO1+ANISONORMAL PLT | | LAB | | | | MORPHTesting performed | | | | | | at [facility], [address] | | | | | | [facility], | | | | | | [place] [address] | | | | | |Testing performed at [facility], [address] [facility], [place] [address] | | | | | | | | | | + + +---- + + + + + | Specimen | + + | Blood specimen | | (specimen) | + + + +---------+ + + | Performing | Address | City/State/Zipcode | Phone Number | | Organization | | | | + +---------+ + + | EXTERNAL LAB | | | | + +---------+ + + Phosphorus (01/29/2015 4:35 AM PDT) + + + + + + | Component | Value | Ref Range | Performed | Pathologist | | | | | At | Signature | + + + + + + | PHOSPHORUS | 3.5Comment: Testing | 2.3 - 4.8 mg/dL | EXTERNAL | | | | performed at [facility];[address] | | LAB | | | | [address];[place], [place] | | | | | | [address] | | | | + + + + + + + + | Specimen | + + | Blood specimen | | (specimen) | + + + +---------+ + + | Performing | Address | City/State/Zipcode | Phone Number | | Organization | | | | + +---------+ + + | EXTERNAL LAB | | | | + +---------+ + + Magnesium (01/29/2015 4:35 AM PDT) + + + + + + | Component | Value | Ref Range | Performed | Pathologist | | | | | At | Signature | + + + + + + | Magnesium | 1.8Comment: SPECIMEN | 1.7 - 2.4 mg/dL | EXTERNAL | | | | SLIGHTLY | | LAB | | | | HEMOLYZEDTesting | | | | | | performed at [facility];[address] | | | | | | [address];[place] | | | | | | [address] | | | | + + + + + + + + | Specimen | + + | Blood specimen | | (specimen) | + + + +---------+ + + | Performing | Address | City/State/Zipcode | Phone Number | | Organization | | | | + +---------+ + + | EXTERNAL LAB | | | | + +---------+ + + Lactic Acid (01/29/2015 4:35 AM PDT) + + + + + + | Component | Value | Ref Range | Performed | Pathologist | | | | | At | Signature | + + + + + + | Lactate | 1.0Comment: Testing | 0.4 - 2.0 | EXTERNAL | | | | performed at [facility];[address] | mmol/L | LAB | | | | [address];[place], [place] | | | | | | [address] | | | | + + + + + + + + | Specimen | + + | | + + + +---------+ + + | Performing | Address | City/State/Zipcode | Phone Number | | Organization | | | | + +---------+ + + | EXTERNAL LAB | | | | + +---------+ + + Comprehensive Metabolic Panel (01/29/2015 4:35 AM PDT) + + + + + + | Component | Value | Ref Range | Performed | Pathologist | | | | | At | Signature | + + + + + + | Na | 137Comment: Testing | 135 - 143 | EXTERNAL | | | | performed at [facility];[address] | mmol/L | LAB | | | | [address];[place] | | | | | | [address] | | | | + + + + + + | K | 4.4Comment: SPECIMEN | 3.5 - 4.9 | EXTERNAL | | | | SLIGHTLY | mmol/L | LAB | | | | HEMOLYZEDTesting | | | | | | performed at [facility];[address] | | | | | | [address];[place] | | | | | | [address] | | | | + + + + + + | Cl | 106Comment: Testing | 99 - 109 mmol/L | EXTERNAL | | | | performed at [facility];[address] | | LAB | | | | [address];[place] | | | | | | [address] | | | | + + + + + + | CO2 | 24Comment: Testing | 23 - 32 mmol/L | EXTERNAL | | | | performed at [facility];[address] | | LAB | | | | [address];[place] | | | | | | [address] | | | | + + + + + + | Anion Gap | 12Comment: Testing | 5 - 20 mmol/L | EXTERNAL | | | | performed at [facility];[address] | | LAB | | | | [address];[place] | | | | | | [address] | | | | + + + + + + | Glucose, | 103 (H)Comment: Testing | 65 - 99 mg/dL | EXTERNAL | | | Fasting | performed at [facility];[address] | | LAB | | | | [address];[place] | | | | | | [address] | | | | + + + + + + | BUN | 22Comment: Testing | 8 - 25 mg/dL | EXTERNAL | | | | performed at [facility];[address] | | LAB | | | | [address];[place] | | | | | | [address] | | | | + + + + + + | Creatinine | 1.9 (H)Comment: Testing | 0.50 - 1.00 | EXTERNAL | | | | performed at [facility];[address] | mg/dL | LAB | | | | [address];[place] | | | | | | [address] | | | | + + + + + + | BUN/Creatin | 12Comment: Testing | | EXTERNAL | | | ine Ratio | performed at [facility];[address] | | LAB | | | | [address];[place] | | | | | | [address] | | | | + + + + + + | Calcium | 7.4 (L)Comment: Testing | 8.5 - 10.5 | EXTERNAL | | | | performed at [facility];888 | mg/dL | LAB | | | | [address];[place] | | | | | | [address] | | | | + + + + + + | Protein, | 6.5Comment: Testing | 6.3 - 8.2 g/dL | EXTERNAL | | | Total | performed at [facility] [place];[address] | | LAB | | | | [address];[place] | | | | | | [address] | | | | + + + + + + | Albumin | 2.2 (L)Comment: Testing | 3.3 - 4.8 g/dL | EXTERNAL | | | | performed at [facility] [place];[address] | | LAB | | | | [address];[place] | | | | | | [address] | | | | + + + + + + | Globulin | 4.4Comment: Testing | 1.3 - 4.9 g/dL | EXTERNAL | | | | performed at [facility] [place];[address] | | LAB | | | | [address];[place] | | | | | | [address] | | | | + + + + + + | A/G Ratio | 0.5 (L)Comment: Testing | 1.0 - 2.4 | EXTERNAL | | | | performed at [facility] [place];[address] | | LAB | | | | [address];[place] | | | | | | [address] | | | | + + + + + + | Bilirubin | 0.5Comment: Testing | 0.1 - 1.5 mg/dL | EXTERNAL | | | Total | performed at [facility] [place];[address] | | LAB | | | | [address];[place] | | | | | | [address] | | | | + + + + + + | ALP, | 148 (H)Comment: Testing | 35 - 115 U/L | EXTERNAL | | | External | performed at [facility] [place];[address] | | LAB | | | | [address];[place] | | | | | | [address] | | | | + + + + + + | AST | 41Comment: SPECIMEN | 10 - 45 U/L | EXTERNAL | | | | SLIGHTLY | | LAB | | | | HEMOLYZEDTesting | | | | | | performed at [facility] [place];[address] | | | | | | [address];[place] | | | | | | [address] | | | | + + + + + + | ALT | 23Comment: Testing | 10 - 65 U/L | EXTERNAL | | | | performed at [facility] [place];[address] | | LAB | | | | [address];[place] | | | | | | [address] | | | | + + + + + + | Estimated | 28 (L)Comment: GFR <60: | mL/min/1.73m2 | EXTERNAL [...] | | | | | | at [facility] [place];[address] | | | | | [address];[place] [address] | | | | + + + + + + + + | Specimen | + + | Blood specimen | | (specimen) | + + + +---------+ + + | Performing | Address | City/State/Zipcode | Phone Number | | Organization | | | | + +---------+ + + | EXTERNAL LAB | | | | + +---------+ + + Culture, Urine (01/28/2015 7:50 PM PDT) + + | Specimen | + + | | + + + + + | Narrative | Performed At | + + + | Specimen Description URINE, COLLECTION NOT | EXTERNAL LAB | | GIVEN CULTURE <10,000 CFU/ML | | | GRAM-POSITIVE | | | COCCUSAbnormal NO | | | FURTHER WORKUP | | | Testing performed at [facility], [address], [place] | | | [address] | | + + + + +---------+ + + | Performing | Address | City/State/Zipcode | Phone Number | | Organization | | | | + +---------+ + + | EXTERNAL LAB | | | | + +---------+ + + Urinalysis, Reflex Microscopic and/or Culture (01/28/2015 7:50 PM PDT) + + + + + + | Component | Value | Ref Range | Performed | Pathologist | | | | | At | Signature | + + + + + + | Color | YELLOWComment: Testing | | EXTERNAL | | | | performed at [facility], [address] | | LAB | | | | [address], | | | | | | [place] [address] | | | | + + + + + + | Clarity | CLOUDYComment: Testing | | EXTERNAL | | | | performed at [facility], [address] | | LAB | | | | [address], | | | | | | [place] [address] | | | | + + + + + + | Specific | 1.015Comment: Testing | 1.002 - 1.030 | EXTERNAL | | | Old Lyme | performed at [facility], [address] | | LAB | | | | [address], | | | | | | [place] [address] | | | | + + + + + + | Leukocyte | SMALL (A)Comment: | | EXTERNAL | | | Esterase, | Testing performed at | | LAB | | | Urine | [facility], [address] | | | | | | [place] | | | | | | [address] | | | | + + + + + + | Nitrite, | NEGATIVEComment: Testing | | EXTERNAL | | | Urine | performed at [facility], [address] | | LAB | | | | [address], | | | | | | [place] [address] | | | | + + + + + + | Urobilinoge | 0.2Comment: Testing | mg/dL | EXTERNAL | | | n, Urine | performed at [facility], [address] | | LAB | | | | [address], | | | | | | [place] [address] | | | | + + + + + + | Protein, | 100 (A)Comment: Testing | mg/dL | EXTERNAL | | | Urine | performed at [facility], [address] | | LAB | | | | [address], | | | | | | [place] [address] | | | | + + + + + + | pH, Urine | 6.5Comment: Testing | 5.0 - 8.0 | EXTERNAL | | | | performed at [facility], [address] | | LAB | | | | [place] [address], | | | | | | [place] [address] | | | | + + + + + + | Blood, | MODERATE (A)Comment: | | EXTERNAL | | | Urine | Testing performed at | | LAB | | | | [facility], [address] | | | | | | [place] | | | | | | [address] | | | | + + + + + + | Ketones | NEGATIVEComment: Testing | mg/dL | EXTERNAL | | | | performed at [facility], [address] | | LAB | | | [address], | | | | | | [place] [address] | | | | + + + + + + | Bilirubin, | NEGATIVEComment: Testing | | EXTERNAL | | | Urine | performed at [facility], [address] | | LAB | | | [address], | | | | | | [place] [address] | | | | + + + + + + | Glucose, | NEGATIVEComment: Testing | mg/dL | EXTERNAL | | | Urine | performed at [facility], [address] | | LAB | | | [address], | | | | | | [place] [address] | | | | + + + + + + + + | Specimen | + + | | + + + +---------+ + + | Performing | Address | City/State/Zipcode | Phone Number | | Organization | | | | + +---------+ + + | EXTERNAL LAB | | | | + +---------+ + + Urinalysis, Microscopic Only (01/28/2015 7:50 PM PDT) + + + + + + | Component | Value | Ref Range | Performed | Pathologist | | | | | At | Signature | + + + + + + | WBC, UA | 1-5Comment: Testing | 0 - 5 /hpf | EXTERNAL | | | | performed at [facility], [address] | | LAB | | | | [address], | | | | | | [place] [address] | | | | + + + + + + | RBC, UA | 1-5Comment: Testing | 0 - 5 /hpf | EXTERNAL | | | | performed at [facility], [address] | | LAB | | | | [address], | | | | | | [place] [address] | | | | + + + + + + | Epithelial | 0-2Comment: Testing | /lpf | EXTERNAL | | | Cells | performed at [facility], [address] | | LAB | | | | [address], | | | | | | [place] [address] | | | | + + + + + + | Bacteria, | TRACE (A)Comment: | | EXTERNAL | | | UA | Testing performed at | | LAB | | | | [facility], [address] | | | | | | [place] | | | | | | [address] | | | | + + + + + + | Urinalysis | CULTURE TO | | EXTERNAL | | | Comments | FOLLOWComment: Testing | | LAB | | | | performed at [facility], [address] | | | | | | [address], | | | | | | [place] [address] | | | | + + + + + + + + | Specimen | + + | | + + + +---------+ + + | Performing | Address | City/State/Zipcode | Phone Number | | Organization | | | | + +---------+ + + | EXTERNAL LAB | | | | + +---------+ + + Creatinine (01/28/2015 3:26 PM PDT) + + + + + + | Component | Value | Ref Range | Performed | Pathologist | | | | | At | Signature | + + + + + + | Creatinine | 1.4 (H)Comment: Testing | 0.50 - 1.00 | EXTERNAL | | | | performed at [facility];888 | mg/dL | LAB | | | | [address];[place] | | | | | | [address] | | | | + + + [...] + +---------+ + + HISTORICAL MICROBIOLOGY RESULT (01/28/2015 2:52 PM PDT) + + | Specimen | + + | Stool specimen | | (specimen) | + + + + + | Narrative | Performed At | + + + | Toxigenic C Difficile POSITIVE for Toxigenic | EXTERNAL LAB | | C.diffAbnormal Testing performed at [facility];[address] [place] [address] | | | [phone] NAP1 BI 027 NAP1 BI | | | PRESUMPTIVE NEGATIVE Detection of 027 NAP1 BI strains of C. difficile | | | is presumptive and for epidemiological purposes and not intended to | | | guide or monitor treatment for C. difficile infections. Testing | | | performed at [facility];[address] [place] [address];[place] [address] | | + + + + +---------+ + + | Performing | Address | City/State/Zipcode | Phone Number | | Organization | | | | + +---------+ + + | EXTERNAL LAB | | | | + +---------+ + + Lactic Acid (01/28/2015 2:52 PM PDT) + + + + + + | Component | Value | Ref Range | Performed | Pathologist | | | | | At | Signature | + + + + + + | Lactate | 2.6 (H)Comment: Testing | 0.4 - 2.0 | EXTERNAL | | | | performed at [facility];[address] | mmol/L | LAB | | | | [address];[place], [place] | | | | | | [address] | | | | + + + + + + + + | Specimen | + + | Blood specimen | | (specimen) | + + + +---------+ + + | Performing | Address | City/State/Zipcode | Phone Number | | Organization | | | | + +---------+ + + | EXTERNAL LAB | | | | + +---------+ + + Procalcitonin (01/28/2015 2:47 PM PDT) + + + + + + | Component | Value | Ref Range | Performed | Pathologist | | | | | At | Signature | + + + + + + | PROCALCITON | 5.61 (H)Comment: | ng/mL | EXTERNAL | | | [...] | | | | | | at [facility];[address] | | | | | | [facility];[place] [address] | | | | + + + + + + + + | Specimen | + + | | + + + +---------+ + + | Performing | Address | City/State/Zipcode | Phone Number | | Organization | | | | + +---------+ + + | EXTERNAL LAB | | | | + +---------+ + + CK-MB (01/28/2015 2:47 PM PDT) + + + + + -+ | Component | Value | Ref Range | Performed | Pathologist | | | | | At | Signature | + + + + + -+ | CK-MB | 1.1Comment: Testing | 0.5 - 3.6 ng/mL | EXTERNAL | | | | performed at [facility];[address] | | LAB | | | | [address];[place], [place] | | | | | | [address] | | | | + + + + + -+ | CK-MB Index | 0.4Comment: CK INDEX | | EXTERNAL | | | | INTERPRETATION: | | LAB | | | | MMB ng/mL | | | | | | | | | | | |CK INDEX INTERPRETATION: | | | | | | MMB ng/mL | | | | | | | | | | + + + + + -+ + + | Specimen | + + | Blood specimen | | (specimen) | + + + +---------+ + + | Performing | Address | City/State/Zipcode | Phone Number | | Organization | | | | + +---------+ + + | EXTERNAL LAB | | | | + +---------+ + + Troponin I (01/28/2015 2:47 PM PDT) + + + + + + | Component | Value | Ref Range | Performed | Pathologist | | | | | At | Signature | + + + + + + | Troponin I, | 0.083Comment: 0.00 to | 0.00 - 0.10 | EXTERNAL | | | Qual | 0.10 CONSISTENT WITH | ng/mL | LAB | | | | NORMAL POPULATION0.11 to | | | | | | 0.60 CONSISTENT WITH | | | | | | INCREASED RISK FOR | | | | | | ADVERSE OUTCOMES> 0.60 | | | | | | CONSISTENT | | | | | | WITH WHO CRITERIA FOR | | | | | | ACUTE ID Testing | | | | | | performed at [facility];[address] | | | | | | [facility];[place], [place] | | | | | | [address] | | | | + + + [...] + +---------+ + + External Lab: CBC (01/28/2015 2:47 PM PDT) + + + + + + | Component | Value | Ref Range | Performed | Pathologist | | | | | At | Signature | + + + + + + | WBC | 19.78 (H)Comment: | 3.80 - 11.00 | EXTERNAL | | | | Testing performed at | K/uL | LAB | | | | [facility];[address] | | | | | | [address];[place] [address] | | | | + + + + + + | RED CELL | 3.66 (L)Comment: Testing | 3.70 - 5.10 | EXTERNAL | | | COUNT | performed at [facility];[address] | M/uL | LAB | | | | [address];[place] | | | | | | [address] | | | | + + + + + + | Hgb | 12.6Comment: Testing | 11.3 - 15.5 | EXTERNAL | | | | performed at [facility];[address] | g/dL | LAB | | | | [address];[place] | | | | | | [address] | | | | + + + + + + | Hematocrit, | 38.9Comment: Testing | 34.0 - 46.0 % | EXTERNAL | | | POC | performed at [facility];[address] | | LAB | | | | [address];[place] | | | | | | [address] | | | | + + + + + + | MCV | 106.3 (H)Comment: | 80.0 - 100.0 fl | EXTERNAL | | | | Testing performed at | | LAB | | | | [facility];[address];[place] [address] | | | | + + + + + + | MCH | 34.3 (H)Comment: Testing | 27.0 - 34.0 pg | EXTERNAL | | | | performed at [facility];[address] | | LAB | | | | [address];[place] | | | | | | [address] | | | | + + + + + + | MCHC | 32.3Comment: Testing | 32.0 - 35.5 | EXTERNAL | | | | performed at [facility];[address] | g/dL | LAB | | | | [address];[place] | | | | | | [address] | | | | + + + + + + | RDW-CV | 54.7 (H)Comment: Testing | 37 - 53 fl | EXTERNAL | | | | performed at [facility];[address] | | LAB | | | | [address];[place] | | | | | | [address] | | | | + + + + + + | Platelet | 167Comment: Testing | 150 - 400 K/uL | EXTERNAL | | | Count | performed at [facility];[address] | | LAB | | | Plasma | [address];[place] | | | | | | [address] | | | | + + + + + + | MPV | 10.6Comment: Testing | fl | EXTERNAL | | | | performed at [facility];[address] | | LAB | | | | [address];[place] | | | | | | [address] | | | | + + + + + + | Differentia | MANUALComment: Testing | | EXTERNAL | | | l Type | performed at [facility];[address] | | LAB | | | | [address];[place] | | | | | | [address] | | | | + + + + + + | Segmented | 54Comment: Testing | % | EXTERNAL | | | Neutrophils | performed at [facility];[address] | | LAB | | | Manual | [address];[place] | | | | | | [address] | | | | + + + + + + | % Bands | 18Comment: Testing | % | EXTERNAL | | | | performed at [facility];[address] | | LAB | | | | [address];[place] | | | | | | [address] | | | | + + + + + + | Lymphocytes | 16Comment: Testing | % | EXTERNAL | | | Manual | performed at [facility];[address] | | LAB | | | | [address];[place] | | | | | | [address] | | | | + + + + + + | Monocytes | 12Comment: Testing | % | EXTERNAL | | | Manual | performed at [facility];[address] | | LAB | | | | [address];[place] | | | | | | [address] | | | | + + + + + + | Absolute | 10.69 (H)Comment: | 1.90 - 7.40 | EXTERNAL | | | Neutrophils | Testing performed at | K/uL | LAB | | | | [facility];[address];[place] [address] | | | | + + + + + + | Bands | 3.56 (H)Comment: Testing | 0.00 - 0.20 | EXTERNAL | | | Manual | performed at [facility];[address] | K/uL | LAB | | | | [address];[place] | | | | | | [address] | | | | + + + + + + | Absolute | 3.16Comment: Testing | 1.00 - 3.90 | EXTERNAL | | | Lymphocytes | performed at [facility];[address] | K/uL | LAB | | | | [address];[place] | | | | | | [address] | | | | + + + + + + | Absolute | 2.37 (H)Comment: Testing | 0.00 - 0.80 | EXTERNAL | | | Monocytes | performed at [facility];[address] | K/uL | LAB | | | | [address];[place] | | | | | | [address] | | | | + + + + + + | Platelet | ADEQUATEComment: Testing | | EXTERNAL | | | Estimate | performed at [facility];[address] | | LAB | | | | [address];[place] | | | | | | [address] | | | | + + + + + + | RBC | NORMAL PLT MORPHComment: | | EXTERNAL | | | Morphology | 1+ANISOTesting | | LAB | | | | performed at [facility];[address] | | | | | | [address];[place] | | | | | | [address] | | | | | | | [...] | | + +---------+ + + TSH (01/28/2015 2:47 PM PDT) + + + + + + | Component | Value | Ref Range | Performed | Pathologist | | | | | At | Signature | + + + + + + | TSH | 1.71Comment: Testing | 0.45 - 5.10 | EXTERNAL | | | | performed at [facility];[address] | uIU/mL | LAB | | | | [address];[place], [place] | | | | | | [address] | | | | + + + + + + + + | Specimen | + + | Blood specimen | | (specimen) | + + + +---------+ + + | Performing | Address | City/State/Zipcode | Phone Number | | Organization | | | | + +---------+ + + | EXTERNAL LAB | | | | + +---------+ + + Phosphorus (01/28/2015 2:47 PM PDT) + + + + + + | Component | Value | Ref Range | Performed | Pathologist | | | | | At | Signature | + + + + + + | PHOSPHORUS | 3.0Comment: Testing | 2.3 - 4.8 mg/dL | EXTERNAL | | | | performed at [facility];[address] | | LAB | | | | [address];[place], [place] | | | | | | [address] | | | | + + + + + + + + | Specimen | + + | Blood specimen | | (specimen) | + + + +---------+ + + | Performing | Address | City/State/Zipcode | Phone Number | | Organization | | | | + +---------+ + + | EXTERNAL LAB | | | | + +---------+ + + B Type Natriuretic Peptide (01/28/2015 2:47 PM PDT) + + + + + + | Component | Value | Ref Range | Performed | Pathologist | | | | | At | Signature | + + + + + + | BNP | 2,060 (H)Comment: | 0 - 100 pg/mL | EXTERNAL | | | | Testing performed at | | LAB | | | | [facility];[address] | | | | | | [address];[place] [address] | | | | + + + + + + + + | Specimen | + + | Blood specimen | | (specimen) | + + + +---------+ + + | Performing | Address | City/State/Zipcode | Phone Number | | Organization | | | | + +---------+ + + | EXTERNAL LAB | | | | + +---------+ + + Magnesium (01/28/2015 2:47 PM PDT) + + + + + + | Component | Value | Ref Range | Performed | Pathologist | | | | | At | Signature | + + + + + + | Magnesium | 1.1 (L)Comment: Testing | 1.7 - 2.4 mg/dL | EXTERNAL | | | | performed at [facility];[address] | | LAB | | | | [address];[place], [place] | | | | | | [address] | | | | + + + + + + + + | Specimen | + + | Blood specimen | | (specimen) | + + + +---------+ + + | Performing | Address | City/State/Zipcode | Phone Number | | Organization | | | | + +---------+ + + | EXTERNAL LAB | | | | + +---------+ + + CK Total (01/28/2015 2:47 PM PDT) + + + + + + | Component | Value | Ref Range | Performed | Pathologist | | | | | At | Signature | + + + + + + | CK, Total | 266 (H)Comment: Testing | 30 - 240 U/L | EXTERNAL | | | | performed at [facility];[address] | | LAB | | | | [address];[place] | | | | | | [address] | | | | + + + [...] + +---------+ + + Comprehensive Metabolic Panel (01/28/2015 2:47 PM PDT) + + + + + + | Component | Value | Ref Range | Performed | Pathologist | | | | | At | Signature | + + + + + + | Na | 137Comment: Testing | 135 - 143 | EXTERNAL | | | | performed at [facility];[address] | mmol/L | LAB | | | | [address];[place] | | | | | | [address] | | | | + + + + + + | K | 3.4 (L)Comment: Testing | 3.5 - 4.9 | EXTERNAL | | | | performed at [facility];[address] | mmol/L | LAB | | | | [address];[place] | | | | | | [address] | | | | + + + + + + | Cl | 101Comment: Testing | 99 - 109 mmol/L | EXTERNAL | | | | performed at [facility];[address] | | LAB | | | | [address];[place] | | | | | | [address] | | | | + + + + + + | CO2 | 27Comment: Testing | 23 - 32 mmol/L | EXTERNAL | | | | performed at [facility];[address] | | LAB | | | | [address];[place] | | | | | | [address] | | | | + + + + + + | Anion Gap | 12Comment: Testing | 5 - 20 mmol/L | EXTERNAL | | | | performed at [facility];[address] | | LAB | | | | [address];[place] | | | | | | [address] | | | | + + + + + + | Glucose, | 106 (H)Comment: Testing | 65 - 99 mg/dL | EXTERNAL | | | Fasting | performed at [facility];[address] | | LAB | | | | [address];[place] | | | | | | [address] | | | | + + + + + + | BUN | 18Comment: Testing | 8 - 25 mg/dL | EXTERNAL | | | | performed at [facility];[address] | | LAB | | | | [address];[place] | | | | | | [address] | | | | + + + + + + | Creatinine | 1.3 (H)Comment: Testing | 0.50 - 1.00 | EXTERNAL | | | | performed at [facility];[address] | mg/dL | LAB | | | | [address];[place] | | | | | | [address] | | | | + + + + + + | BUN/Creatin | 14Comment: Testing | | EXTERNAL | | | ine Ratio | performed at [facility];[address] | | LAB | | | | [address];[place] | | | | | | [address] | | | | + + + + + + | Calcium | 7.3 (L)Comment: Testing | 8.5 - 10.5 | EXTERNAL | | | | performed at [facility];[address] | mg/dL | LAB | | | | [address];[place] | | | | | | [address] | | | | + + + + + + | Protein, | 7.9Comment: Testing | 6.3 - 8.2 g/dL | EXTERNAL | | | Total | performed at [facility];[address] | | LAB | | | | [address];[place] | | | | | | [address] | | | | + + + + + + | Albumin | 2.5 (L)Comment: Testing | 3.3 - 4.8 g/dL | EXTERNAL | | | | performed at [facility];[address] | | LAB | | | | [address];[place] | | | | | | [address] | | | | + + + + + + | Globulin | 5.4 (H)Comment: Testing | 1.3 - 4.9 g/dL | EXTERNAL | | | | performed at [facility];[address] | | LAB | | | | [address];[place] | | | | | | [address] | | | | + + + + + + | A/G Ratio | 0.5 (L)Comment: Testing | 1.0 - 2.4 | EXTERNAL | | | | performed at [facility];[address] | | LAB | | | | [address];[place] | | | | | | [address] | | | | + + + + + + | Bilirubin | 0.6Comment: Testing | 0.1 - 1.5 mg/dL | EXTERNAL | | | Total | performed at [facility];[address] | | LAB | | | | [address];[place] | | | | | | [address] | | | | + + + + + + | ALP, | 188 (H)Comment: Testing | 35 - 115 U/L | EXTERNAL | | | External | performed at [facility];[address] | | LAB | | | | [address];[place] | | | | | | [address] | | | | + + + + + + | AST | 51 (H)Comment: Testing | 10 - 45 U/L | EXTERNAL | | | | performed at [facility];[address] | | LAB | | | | [address];[place] | | | | | | [address] | | | | + + + + + + | ALT | 30Comment: Testing | 10 - 65 U/L | EXTERNAL | | | | performed at [facility];[address] | | LAB | | | | [address];[place] | | | | | | [address] | | | | + + + + + + | Estimated | 43 (L)Comment: GFR <60: | mL/min/1.73m2 | EXTERNAL [...] | | | | | | at [facility];[address];[place] [address] | | | | + + + [...] +---------+ + + XR Chest 1 Vw (01/28/2015 2:40 PM PDT) + + | Specimen | + + | | + + + + + | Impressions | Performed At | + + + | 1. Diminished lung volumes from prior study with increasing | | | probable perihilar atelectasis. Pneumonia cannot be excluded due to | | | the low lung volumes. | | + + + + + + | Narrative | Performed At | + + + | [facility] 1945 69 years XR CHEST 1 VIEW 01/28/2015 | | | 2:40 PM INDICATION: Shortness of breath and fever COMPARISON: | | | 01/14/2015 TECHNIQUE: Chest 1 view, AP view of the chest | | | FINDINGS: Lung volumes are markedly diminished from the previous | | | exam. There is no pneumothorax noted. The cardiac silhouette is | | | unchanged in appearance from prior study. Cholecystectomy clips are | | | seen in the right upper quadrant. Multiple surgical clips are | | | present along the epigastrium secondary to previous splenectomy. | | | Increasing perihilar opacities are noted which is felt to reflect | | | atelectasis. The pulmonary markings are normal in caliber. | | + + + + + | Procedure Note | + + | Manuel Blake Conversion - 01/05/2019 4:32 AM PDT [id number] | | CHEST 1 VIEW01/28/2015 2:40 PM INDICATION: Shortness of breath and fever COMPARISON: | | 01/14/2015 TECHNIQUE: Chest 1 view, AP view of the chest FINDINGS: Lung volumes are | | markedly diminished from the previous exam. There is no pneumothorax noted. The cardiac | | silhouette is unchanged in appearance from prior study. Cholecystectomy clips are seen | | in the right upper quadrant. Multiple surgical clips are present along the epigastrium | | secondary to previous splenectomy. Increasing perihilar opacities are noted which is | | felt to reflect atelectasis. The pulmonary markings are normal in caliber. IMPRESSION: | | 1. Diminished lung volumes from prior study with increasing probable perihilar | | atelectasis. Pneumonia cannot be excluded due to the low lung volumes. Electronically | | signed by Chang Gar MD on 01/28/2015 2:44 PM | | | |FINDINGS: Lung volumes are markedly diminished from the previous exam. There is no pneumot horax noted. The cardiac silhouette is unchanged in appearance from prior study. Cholecystec ursula clips are seen in the right upper quadrant. Multiple surgical | |clips are present along the epigastrium secondary to previous splenectomy. Increasing perih ilar opacities are noted which is felt to reflect atelectasis. The pulmonary markings are no rmal in caliber. | | | |IMPRESSION: | |1. Diminished lung volumes from prior study with increasing probable perihilar atelectasis . Pneumonia cannot be excluded due to the low lung volumes. | | | | | + + documented in this encounter Visit Diagnoses Not on filedocumented in this encounter
--- OUTSIDE RECORDS SUMMARY | ~2019-05-29 | XMS | Encounter Summary ---
Demographics + + + | Address | [address] | | | [place] [address] | + + + | Home Phone | | + + + | Preferred Language | Unknown | + + + | Marital Status | Unknown | + + + | Sabianism Affiliation | Unknown | + + + | Race | Unknown | + + + | Ethnic Group | Unknown | + + + Author + + + | Author | [facility] | + + + | Organization | [facility] | + + + | Address | Unknown | + + + | Phone | Unavailable | + + + Care Team Providers + +------+ + | Care Processor Inspector Name | Role | Phone | [...] | | | | | [address] [place], | [place], [place] | | | | | [place] [address] | [address] | | | | | [phone] | | | +--------+ + + + [...]
--- OUTSIDE RECORDS SUMMARY | ~2019-05-29 | XMS | Encounter Summary ---
Demographics + + + | Address | [address] | | | [place] [address] | + + + | Home Phone | | + + + | Preferred Language | Unknown | + + + | Marital Status | Single | + + + | Advent Affiliation | 1041 | + + + | Race | Unknown | + + + | Ethnic Group | Unknown | + + + Author + + + | Author | [facility] | | | and [place] | + + + | Organization | [facility] | | | [...] Team Providers + +------+ + | Care Patient Coordinator Front Desk Name | Role | Phone | + +------+ + | Rick Osorio DO | PCP | | + +------+ + Encounter Details +--------+ + + + + | Date | Type | Department | Care Team | Description | +--------+ + + + + | 12/05/ | Orders Only | [facility] | Emil Oliva MD | | | 2013 | | NEPRHOLOGY [place] | [address] [facility] [address] | | | | | [address] | [address] [place], [place] | | | | | [address] [place], [place] | [address] | | | | | [address] | | | | | | [phone] | | | +--------+ + + + [...]
--- OUTSIDE RECORDS SUMMARY | ~2019-05-29 | XMS | Clinical Summary ---
Demographics + + + | Address | [address] | | | [place] [address] | + + + | Home Phone | | + + + | Preferred Language | Unknown | + + + | Marital Status | | + + + | Baptism Affiliation | 1041 | + + + | Race | Unknown | + + + | Ethnic Group | Unknown | + + + Author + + + | Author | [facility] (Historical as of | | | 01-06-19) | + + + | Organization | [facility] REEL Qualified (Historical as of | | | 01-06-19) [...] Team Providers + +------+ + | Care Invoice Clerk Name | Role | Phone | + [...] | MA - GENERIC | MA-GEN | [id number] | Medica | | | | | [...] | | | | | | | [address] | + +--------+ +--------+ + +
--- OUTSIDE RECORDS SUMMARY | ~2019-05-29 | XMS | Encounter Summary ---
Demographics + + + | Address | [address] | | | [place] [address] | + + + | Home Phone | | + + + | Preferred Language | Unknown | + + + | Marital Status | Unknown | + + + | Faith Affiliation | Unknown | + + + | Race | Unknown | + + + | Ethnic Group | Unknown | + + + Author + + + | Author | [facility] | + + + | Organization | [facility] | + + + | Address | Unknown | + + + | Phone | Unavailable | + + + Care Team Providers + +------+ + | Care Window Machine Operator Name | Role | Phone | [...] + + | 01/28/ | Emergency | [facility] Emergency | | | | 2014 | | Department [address] | | | | | | [address] | | | | | | [facility] | | | | | | [place], [place] | | | | | | [address] | | | | | | [phone] | | | +--------+ + + + [...]
--- OUTSIDE RECORDS SUMMARY | ~2019-05-29 | XMS | Encounter Summary ---
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 In some [facility], a lung transplant is an option. Your healthcare team may include: A primary care provider,such as your family doctor. A bean picker,a specialist in lung problems. A pulmonary nurse specialistwho helps you understand and carry out your treatment. A pulmonary rehabilitation specialistwho helps you gain strength through exercise. A social workerwho helps with your daily needs, family life, and stress. [id number] [employer]. [address] [place] [address]. All righ ts reserved. This information is [...]
--- OUTSIDE RECORDS SUMMARY | ~2019-05-29 | XMS | Encounter Summary ---
Demographics + + + | Address | [address] | | | [place] [address] | + + + | Home Phone | | + + + | Preferred Language | Unknown | + + + | Marital Status | Single | + + + | Orthodox Affiliation | 1041 | + + + | Race | Unknown | + + + | Ethnic Group | Unknown | + + + Author + + + | Author | [facility] | | | and [place] | + + + | Organization | [facility] | | | [...] Team Providers + +------+ + | Care Extracorporeal Technician Name | Role | Phone | + +------+ + | Yovani Santana MD | PCP | | + +------+ + Encounter Details +--------+ + + + + | Date | Type | Department | Care Team | Description | +--------+ + + + + | 03/26/ | Hospital | [facility] | Melendez, Gary, | Hypoxemia; Kyphosis | | 2014 | Encounter | MED CTR PULMONARY | MD [address] | deformity of spine | | | | FUNCTION [address] | [place], [place] | | | | | [place], | [address] | | | | | [place] [address] | | | | | | [phone] | | | +--------+ + + + [...] Melendez MD 03/27/2014 13:24 | | | [facility] | | + + + + + | Procedure Note | + + | Gary eMlendez MD - 03/27/2014 1:24 PM PST PULMONARY [...] 03/26/14Electronically signed by: Gary Melendez MD 03/27/2014 13:24[facility] | | [facility] | | | |No prior pulmonary function tests available for comparison. | | | |Test performed: 03/26/14 | |Electronically signed by: Gary Melendez MD 03/27/2014 13:24 | |[facility] | + + documented in this encounter Visit Diagnoses + + | Diagnosis | + + | Hypoxemia | + + | Kyphosis deformity of spine Kyphosis (acquired) (postural) | + + documented in this encounter"
--- OUTSIDE RECORDS SUMMARY | ~2019-05-29 | XMS | Encounter Summary ---
Demographics + + + | Address | [address] | | | [place] [address] | + + + | Home Phone | | + + + | Preferred Language | Unknown | + + + | Marital Status | Single | + + + | Yazidi Affiliation | 1041 | + + + | Race | Unknown | + + + | Ethnic Group | Unknown | + + + Author + + + | Author | [facility] | | | and [place] | + + + | Organization | [facility] | | [...] Team Providers + +------+ + | Care Technology Professional Name | Role | Phone | + +------+ + | Yovani Santana MD | PCP | | + +------+ + Encounter Details +--------+ + + + + | Date | Type | Department | Care Team | Description | +--------+ + + + + | 05/10/ | Hospital | [facility] | Gary Melendez, | Hypoxemia; | | 2014 | Encounter | MED CTR XRAY [address] | MD [address] | Restrictive lung | | | | [place] | [place], [place] | disease | | | | [place] [address] | [address] | | | | | [phone] | | | | | | | [...] + | MISCELLANEOUS LAB | | | [phone] | + +---------+ + + | MISCELANIOUS LAB | | | [phone] | + +---------+ + + documented in this encounter Visit Diagnoses + + | Diagnosis | + + | Hypoxemia | + + | Restrictive lung disease Other diseases of lung, not elsewhere classified | + + documented in this encounter"
--- OUTSIDE RECORDS SUMMARY | ~2019-05-29 | XMS | Encounter Summary ---
Demographics + + + | Address | [address] | | | [place] [address] | + + + | Home Phone | | + + + | Preferred Language | Unknown | + + + | Marital Status | Single | + + + | Worship Affiliation | 1041 | + + + [...] Team Providers + +------+ + | Care Ems Manager Name | Role | Phone | + +------+ + | Rick Osorio DO | PCP | | + +------+ + Encounter Details +--------+ + + + + | Date | Type | Department | Care Team | Description | +--------+ + + + + | 11/15/ | Orders Only | [facility] | Emil Oliva MD | | | 2014 | | NEPRHOLOGY [place] | [address] [facility] | | | | | [address] | [address] [place], [place] | | | | | [address] [place], [place] | [address] | | | | | [address] | | | | | | [phone] | | | +--------+ + + + [...] PRYDEINIG | | | | | + + [...]
--- OUTSIDE RECORDS SUMMARY | ~2019-05-29 | XMS | Clinical Summary ---
Demographics + + + | Address | [address] | | | [place] [address] | + + + | Home Phone | | + + + | Preferred Language | Unknown | + + + | Marital Status | Unknown | + + + | Pentecostalism Affiliation | Unknown | + + + | Race | Unknown | + + + | Ethnic Group | Unknown | + + + Author + + + | Author | [facility] | + + + | Organization | [facility] | + + + | Address | Unknown | + + + | Phone | Unavailable | + + + Care Team Providers + +------+ + | Care Overhead Crane Technician Name | Role | Phone | + +------+ + PCP | Unavailable | + +------+ + Source Comments JAYDEN is fully live on both EpicCare Ambulatory and EpicCare InPatient.[facility] Allergies Not on File Medications Not on [...]
--- OUTSIDE RECORDS SUMMARY | ~2019-05-29 | XMS | Encounter Summary ---
Demographics + + + | Address | [address] | | | [place] [address] | + + + | Home Phone [...] + + + | Author | [facility] | + + + | Organization | [facility] | + + + | Address | Unknown | + + + | Phone | Unavailable | + + + Care Team Providers + +------+ + | Care Boat Patcher Plastic Name | Role | Phone | + [...] | | | | | [address] [place], | [place], [place] | | | | | [place] [address] | [address] | | | | | [phone] | | | +--------+ + + + [...]
--- OUTSIDE RECORDS SUMMARY | ~2019-05-29 | XMS | Encounter Summary ---
Demographics + + + | Address | [address] | | | [place] [address] | + + + | Home Phone [...] Team Providers + +------+ + | Care Glaciologist Name | Role | Phone | + [...] | | | CONSULT | [place] | [place] [address] | | | | | | [place], [place] | Phone: | | | | | | [address] | [phone] | | | | | | Phone: | Fax: | | | | | | [phone] | [phone] | | | | | | Fax: | | | | | | | [phone] | | +--------+--------+ + + + + [...] | Dx); Kyphosis | | | | [place], | [place], [place] | deformity of spine | | | | [place] [address] | [address] | | | | | [phone] | | | +--------+---------+ + + + [...] oxygen at 2 L per minute at [facility] while she slept. 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 Over last 3-4 years Opal [...] A copy of the patient's echocardiogram from [facility] will be reviewed. CC: Yovani Santana documented in this encounter Plan of Treatment Not on filedocumented as of this encounter Results PFT PULMONARY FUNCTION TESTING ORDERS Full PFT ([place] w/BD, lung volumes, diffusion)?: Yes; Rest and [...] Melendez MD 03/27/2014 13:24 | | | [facility] | | + + + + [...] 03/26/14Electronically signed by: Gary Melendez MD 03/27/2014 13:24[facility] | | [facility] | | | |No prior pulmonary function tests available for comparison. 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
--- OUTSIDE RECORDS SUMMARY | ~2019-05-29 | XMS | Encounter Summary ---
Demographics + + + | Address | [address] | | | [place] [address] | + + + | Home Phone | | + + + | Preferred Language | Unknown | + + + | Marital Status | Unknown | + + + | Mormon Affiliation | Unknown | + + + | Race | Unknown | + + + | Ethnic Group | Unknown | + + + Author + + + | Author | [facility] | + + + | Organization | [facility] | + + + | Address | Unknown | + + + | Phone | Unavailable | + + + Care Team Providers + +------+ + | Care Public Weigher Name | Role | Phone | + +------+ + PCP | Unavailable | + +------+ + Reason for Visit +--------+ + | Reason | Comments | +--------+ + | Sepsis | | +--------+ + Encounter Details +--------+ + + + + | Date | Type | Department | Care Team | Description | +--------+ + + + + | 01/28/ | Emergency | [facility] Emergency | | | | 2014 | | Department [address] | | | | | | [address] | | | | | | [facility] | | | | | | [place], [place] | | | | | | [address] | | | | | | [phone] | | | +--------+ + + + [...]
--- OUTSIDE RECORDS SUMMARY | ~2019-05-29 | XMS | Encounter Summary ---
Demographics + + + | Address | [address] | | | [place] [address] | + + + | Home Phone | | + + + | Preferred Language | Unknown | + + + | Marital Status | Single | + + + | Worship Affiliation | 1041 | + + + | Race | Unknown | + + + | Ethnic Group | Unknown | + + + Author + + + | Author | [facility] | | | and [place] | + + + | Organization | [facility] | | | [...] Team Providers + +------+ + | Care Billing Machine Operator Name | Role | Phone [...] | | | CONSULT | [place] | [place] [address] | | | | | | [place], [place] | Phone: | | | | | | [address] | [phone] | | | | | | Phone: | Fax: | | | | | | [phone] | [phone] | | | | | | Fax: | | | | | | | [phone] | | +--------+--------+ + + + + [...] | Dx); Kyphosis | | | | [place], | [place], [place] | deformity of spine | | | | [place] [address] | [address] | | | | | [phone] | | | +--------+---------+ + + + [...] A copy of the patient's echocardiogram from [facility] will be reviewed. CC: Yovani Santana documented in this encounter Plan of Treatment Not on filedocumented as of this encounter Results PFT PULMONARY FUNCTION TESTING ORDERS Full PFT ([place] w/BD, lung volumes, diffusion)?: Yes; Rest and [...] MD 03/27/2014 13:24 | | | [facility] | | + + + [...] signed by: Gary Melendez MD 03/27/2014 13:24[facility] | | [facility] | | | |No prior pulmonary function tests available for comparison. | | | |Test performed: 03/26/14 | |Electronically signed by: Gary Melendez MD 03/27/2014 13:24 | |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
--- OUTSIDE RECORDS SUMMARY | ~2019-05-29 | XMS | Encounter Summary ---
Demographics + + + | Address | [address] | | | [place] [address] | + + + | Home Phone | | + + + | Preferred Language | Unknown | + + + | Marital Status | Single | + + + | Mu-Ism Affiliation | 1041 | + + + [...] Team Providers + +------+ + | Care Specimen Boss Name | Role | Phone | + +------+ + | Rick Osorio DO | PCP | | + +------+ + Encounter Details +--------+ + + + + | Date | Type | Department | Care Team | Description | +--------+ + + + + | 12/05/ | Orders Only | [facility] | Emil Oliva MD | | | 2013 | | NEPRHOLOGY [place] | [address] [facility] | | | | | [address] | [address] [place], [place] | | | | | [address] [place], [place] | [address] | | | | | [address] | | | | | | [phone] | | | +--------+ + + + [...]
--- OUTSIDE RECORDS SUMMARY | ~2019-05-29 | XMS | Clinical Summary ---
Demographics + + + | Address | [address] | | | [place] [address] | + + + | Home Phone [...] + + + | Author | [facility] | | | and [place] | + + + | Organization | [facility] | | [...] Team Providers + +------+ + | Care Table Worker Name | Role | Phone | [...] | [employer] | [facility] | [id number] | 05/23/19 | | | Medica | [...] Person | Self | [birth year] | [address] | | [place]ie | al/Fam | | 1946 | [id number] | | | [place] | | | [address] (Home) | [place] | | | | | | | [address] | + +--------+ +--------+ + + Advance Directives + + + + + | Type | Date Recorded | Patient | Explanation | | | | Fur Remodeler | | + + + + + | Power of | | | | | Surgical Services Director | | | | + + + + + | Advance | 05/10/2014 | | | | Directive | 12:33 PM | | | + + + + +
--- OUTSIDE RECORDS SUMMARY | ~2019-05-29 | XMS | Encounter Summary ---
Demographics + + + | Address | [address] | | | [place] [address] | + + + | Home Phone [...] + + + | Author | [facility] | | | and [place] | + + + | Organization | [facility] | | | [...] Team Providers + +------+ + | Care Propeller Mechanic Name | Role | Phone | + +------+ + | Yovani Santana MD | PCP | | + +------+ + Encounter Details +--------+ + + + + | Date | Type | Department | Care Team | Description | +--------+ + + + + | 03/26/ | Hospital | [facility] | Melendez, Gary, | Hypoxemia; Kyphosis | | 2014 | Encounter | MED CTR PULMONARY | MD [address] | deformity of spine | | | | FUNCTION [address] | [place], [place] | | | | | [place], | [address] | | | | | [place] [address] | | | | | | [phone] | | | +--------+ + + + [...] MD 03/27/2014 13:24 | | | [facility] | | + + + + [...] 03/26/14Electronically signed by: Gary Melendez MD 03/27/2014 13:24[facility] | | [facility] | | | |No prior pulmonary function tests available for comparison. 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
--- OUTSIDE RECORDS SUMMARY | ~2019-05-29 | XMS | Encounter Summary ---
Demographics + + + | Address | [address] | | | [place] [address] | + + + | Home Phone [...] Team Providers + +------+ + | Care Hot Plate Press Operator Name | Role | Phone | [...] + + | 03/26/ | Office | [facility] | Gary Melendez, | Hypoxemia (Primary | | 2014 | Visit | PULMONARY [address] | MD [address] | Dx); Kyphosis | | | | [place], | [place], [place] | deformity of spine; | | | | [place] [address] | [address] | Restrictive lung | | | | [phone] | | disease | +--------+---------+ + + [...] + | MISCELLANEOUS LAB | | | [phone] | + +---------+ + + | MISCELANIOUS LAB | | | [phone] | + +---------+ + + documented in this encounter Visit Diagnoses + + | Diagnosis | + + | Hypoxemia - Primary | + + | 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
--- OUTSIDE RECORDS SUMMARY | ~2019-05-29 | XMS | Encounter Summary ---
Demographics + + + | Address | [address] | | | [place] [address] | + + + | Home Phone [...] Team Providers + +------+ + | Care Personalized Living Manager Name | Role | Phone | [...] [address] | Dx) | | | | [place], | [place], [place] | | | | | [place] [address] | [address] | | | | | [phone] | | | +--------+ + + + [...]
--- OUTSIDE RECORDS SUMMARY | ~2019-05-29 | XMS | Encounter Summary ---
Demographics + + + | Address | [address] | | | [place] [address] | + + + | Home Phone [...] Team Providers + +------+ + | Care Axminster Weaver Name | Role | Phone | + [...] [place], [place] | | | | | [place], [place] | [address] | | | | | [address] | | | | | | [phone] | | | +--------+ + + + [...] 0.03 m/s | | | MV Dec Steele: 9.74 m/s2 MV DecT: 91.63 ms MV E Billy: 0.89 | | | m/s MV E/A Ratio: 26.03 MV PHT: 26.57 ms MVA By PHT: 8.27 | | | cm2 Septal e': 0.06 m/s Septal E/e': 12.90 Lateral e': | | | 0.09 m/s Lateral E/e': 8.96 RAP: 5 mmHg RVSP: 17.59 mmHg | | | TR maxP.59 mmHg TR Vmax: 1.77 m/s Foot Tender: NAIF | | | Authenticated by: Conor [place] Report Date/Time: -- | | | [id number]:51:12 | | + + + + + [...] cmLVPWd: 1.14 cmLVOT | | Area: 3.33 pz2TRQW Diam: 2.06 cm%FS: 26.43 %EF(Teich): 51.67 %ESV(Teich): [...] (A-L): | | 45.82 ml/m2LAAs A2C: 22.15 dx1HHPWW A-L A2C: 71.25 mlLALs A2C: 5.84 cmLAAs A4C: | | 28.64 ki5DASHB A-L A4C: 104.24 mlLALs A4C: 6.68 cmRAAs: 14.65 rr5EGBAU A-L: | | 33.90 mlRAESV MOD: 34.21 mlRALs: 5.37 cmAV maxP.81 mmHgAV meanP.70 | | mmHgAV Vmax: 1.30 m/Sorin Vmean: 0.90 m/Sorin VTI: 24.74 cmAVA Vmax: 2.36 cm2AVA | | (VTI): 2.24 wv5LHNJ maxP.41 mmHgLVOT meanP.88 mmHgLVSI Dopp: 27.63 | | ml/m2LVSV Dopp: 55.54 mlLVOT Vmax: 0.92 m/sLVOT Vmean: 0.64 m/sLVOT VTI: 16.66 | | cmMV A Billy: 0.03 m/sMV Dec Steele: 9.74 m/s2MV DecT: 91.63 msMV E Billy: 0.89 m/sMV | | E/A Ratio: 26.03MV PHT: 26.57 msMVA By PHT: 8.27 lb8Yuztqp e': 0.06 m/sSeptal | | E/e': 12.90Lateral e': 0.09 m/sLateral E/e': 8.96RAP: 5 mmHgRVSP: 17.59 mmHgTR | | maxP.59 mmHgTR Vmax: 1.77 m/s Foot Tender: DHAuthenticated by: Conor | | [facility] Date/Time: -- [id number]:51:12 IMPRESSION: 1. The left ventricle is | [...] A Billy: 0.03 m/s | |MV Dec Steele: 9.74 m/s2 | |MV DecT: 91.63 ms [...] |TR Vmax: 1.77 m/s | | | |Foot Tender: NAIF | |Authenticated by: Conor Garcia | |Report Date/Time: -- [id number]_6:51:12 | | | |IMPRESSION: | |1. The [...]
--- OUTSIDE RECORDS SUMMARY | ~2019-05-29 | XMS | Clinical Summary ---
Demographics + + + | Address | [address] | | | [place] [address] | + + + | Home Phone | | + + + | Preferred Language | Unknown | + + + | Marital Status | Unknown | + + + | Holiness Affiliation | Unknown | + + + | Race | Unknown | + + + | Ethnic Group | Unknown | + + + Author + + + | Author | [facility] | + + + | Organization | [facility] | + + + | Address | Unknown | + + + | Phone | Unavailable | + + + Care Team Providers + +------+ + | Care It Infrastructure Engineer Name | Role | Phone | + +------+ + PCP | Unavailable | + +------+ + Source Comments JAYDEN is fully live on both EpicCare Ambulatory and EpicCare InPatient.[facility] Allergies Not on File Medications Not [...] 03/28/ | Telephone | Liver Transplant | Larua Mercado, | Liver Transplant | | 2019 [...]
--- OUTSIDE RECORDS SUMMARY | ~2019-05-29 | XMS | Clinical Summary ---
Demographics + + + | Address | [address] | | | [place] [address] | + + + | Home Phone | | + + + | Preferred Language | Unknown | + + + | Marital Status | Single | + + + | Adventism Affiliation | 1041 | + + + [...] Providers + +------+ + | Care Sap Basis Consultant Name | Role | Phone | [...] | [employer] [facility] | [facility] | [id number] | 05/23/19 | | | Medica | [...] | | | | | | | [address] | + +--------+ +--------+ + + Advance Directives + + + + + | Type | Date Recorded | Patient | Explanation | | | | Store Operations Associate | | + + + + + | Power of | | | | | Wellness Program Coordinator | | | | + + + + + | Advance | 05/10/2014 | | | | Directive | 12:33 PM | | | + + + + +
--- OUTSIDE RECORDS SUMMARY | ~2019-05-29 | XMS | Encounter Summary ---
Demographics + + + | Address | [address] | | | [place] [address] | + + + | Home Phone | | + + + | Preferred Language | Unknown | + + + | Marital Status | Unknown | + + + | Mosque Affiliation | Unknown | + + + | Race | Unknown | + + + | Ethnic Group | Unknown | + + + Author + + + | Author | [facility] | + + + | Organization | [facility] | + + + | Address | Unknown | + + + | Phone | Unavailable | + + + Care Team Providers + +------+ + | Care Plasma Processing Centrifuge Operator Name | Role | Phone | [...] | | | | | Rosa Morris [place], | [place], [place] | | | | | [place] [address] | [phone] | | | | | [phone] | | | +--------+ + + + [...]
--- OUTSIDE RECORDS SUMMARY | ~2019-05-29 | XMS | Encounter Summary ---
Demographics + + + | Address | [address] | | | [place] [address] | + + + | Home Phone | | + + + | Preferred Language | Unknown | + + + | Marital Status | Single | + + + | Uatsdin Affiliation [...] Team Providers + +------+ + | Care Assistant Merchandiser Name | Role | Phone | + +------+ + | Yovani Santana MD | PCP | | + +------+ + Encounter Details +--------+ + + + + | Date | Type | Department | Care Team | Description | +--------+ + + + + | 01/14/ | Hospital | [facility] | Jennifer Hartman MD | Near syncope; | | 2015 - | Encounter | [facility] | [address] | Elevated troponin; | | | | CARE FLOOR [address] | [place] [address] | Non-STEMI (non-ST | | 01/19/ | | [address] | [phone] | elevated myocardial | | 2015 | | [place], [place] | | infarction) ([facility]); | | | | [address] | | CKD (chronic kidney | | | | [phone] | | disease), | | | | | | unspecified stage; | | | | | | Leukocytosis; ZULAY | | | | | | (acute kidney | | | | | | injury) ([facility]); Liver | | | | | | replaced by | | | | | | transplant ([facility]) | +--------+ + + + + [...] Date of Service: 01/19/15 0753 Status: Signed Distribution Coordinator: Emma Hardy MD (Physician) Related Notes: Original Note by Emma Hardy MD (Physician) filed at 01/19/15 0800 [facility] Service: Hospitalist Physician Discharge Summary Patient ID: Cole Ernst 1945 69 y.o. 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 The patient was taken off methadone about 3 weeks prior to admission. Pre vious creatinine was 1.38 and the patient was presented at [facility] in [place] , was found to have elevated troponin of 0.55 and noted to have creatinine of 2.4 and leukoc ytosis and was transferred for dfo-VX-wgzxmsqpl TX. HOSPITAL COURSE The patient was admitted with pft-NU-bpqqzpugg TX. Cardiology consult was obtained. She was started [...] lipid-lowerin g therapy. The patient also has rvxzm-av-vjerqek kidney disease, stage III. Acute renal fail [...] to have severe protein calorie malnutrition and poultry boner was consulted. Her blood pressures remain stable. 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 You may get the following medications from [...] summary. This entry has been created using [employer] Speech Recognition software and Interventional Imaging. The entry has been reviewed and there [...] Date of Service: 01/19/15 1300 Status: Signed Distribution Coordinator: Shaista Lin RN (Registered Nurse) Pt discharged via wheel chair on 2 L of oxygen. To [facility] in [place]. Pt alert and o rientedX4. onver alessandro Transaction, Provider Unknown - 01/19/2015 8:20 AM PDT Case Management by PHUONG Roman at 01/19/15819 Author: PHUONG Roman Service: (none) Author Type: Agricultural Education Instructor Filed: 01/19/15819 Date of Service: 01/19/15819 Status: Signed Distribution Coordinator: PHUONG Roman (Agricultural Education Instructor) Disposition: [facility] Transportation: facility van All orders, signed [...] 0625 Date of Service: 01/19/15412 Status: Signed Distribution Coordinator: Yady Singh RN (Registered Nurse) Patient resting quietly all night. Medicated once for all over general pain. No further com plaints. VSS. onver alessandro Transaction, Provider Unknown - 01/18/2015 3:21 PM PDT Case Management by PHUONG Roman at 01/18/15 1521 Author: PHUONG Roman Service: (none) Author Type: Agricultural Education Instructor Filed: 01/18/15 1521 Date of Service: 01/18/15 1521 Status: Signed Distribution Coordinator: PHUONG Roman (Agricultural Education Instructor) spoke w/ Will at [facility] who reports they can accept and transport pt tomorrow AM. PHUONG Roman osangela Kirk MD - 01/18/2015 3:10 PM PDT Progress Notes by Rosangela Steinberg MD at 01/18/15 1510 Author: Rosangela Steinberg MD Service: Infectious Disease Author Type: Physician Filed: 01/18/15 0046 Date of Service: 01/18/15 1510 Status: Signed Distribution Coordinator: Rosangela Steinberg MD (Physician) [facility] Service: Infectious Disease Progress Note Hospital Day: [...] diarrhea. Had initially presented to [facility] in [place] with similar complaints. Was foun d to have an elevated troponin. She was mainly admitted as a non-STEMI. Found to have a leuk ocytosis. Since patient is immunocompromised, she was started empirically on IV ceftriaxone. Chest x-ray showed no infiltrate. Patient denies any recent fevers or chills. She went to [facility] mainly becau se of syncope. [...] extraluminal fluid collection abdomen pelvis without contrast [[id number]] Impression 1. Hypoinflated chest, but no evident infiltrate chest 1 view [[id number]] Impression 1. Indication for study and thus [...] 1445 Date of Service: 01/18/15748 Status: Signed Distribution Coordinator: Emma Hardy MD (Physician) [facility] Service: Hospitalist Progress Note Hospital Day: LOS: [...] (HCC) ASSESSMENT & PLAN 1. Non-ST elevation TX. Possible demand ischemia. Will schedule for nuclear [...] Pending course Code Status: Full Code Emma aHrdy MD 01/18/2015 7:54 AM This entry has been created using B[employer] Speech Recognition software and Interventional Imaging. The entry has been reviewed and there may still exist sound alike word errors. onversion Trans action, Provider Unknown - 01/18/2015 5:16 AM PDT Nurse Progress Note by Yady Singh RN at 01/18/15515 Author: Yady Singh RN Service: (none) Author Type: Registered Nurse Filed: 01/18/152104 Date of Service: 01/18/15515 Status: Signed Distribution Coordinator: Yady Singh RN (Registered Nurse) Pt taken [...] Date of Service: 01/17/15 162 Status: Signed Distribution Coordinator: Jose Maria Espinal MD (Physician) Related Notes: Original Note by Jose Maria Espinal MD (Physician) filed at 01/17/152012 [facility] Service: Hospitalist Progress Note Pt: Cole Ernst AGE/SEX: 69 y.o. female : 1945 ROOM: [address] [place] [address] History of Present Illness: " The patient [...] EMS. Patient was taken to [facility] in [place]. Susie ent was noted to have a [...] CT done several days ago while in [place]. She also stat es that her vomiting and diarrhea have significantly improved. She denies any fevers, hemat emesis, melena, bright red blood per rectum, hematuria, dysuria, she denies any leg pain or swelling. No palpitations. She states she does have a history of "kidney disease" and was told that it was secondary to cyclosporine. However, she is not seen kidney specialist [facility] e her liver transplant.".....per admitting MD/Dr. [...] collected as n oted. I urged the billing and accounting staff assistant to introduce a hat so that sample [...] contrast. Prior study for comparison: None FINDINGS: [employer] 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 deg enerative changes of [...] LA/Ao: 1.57 D-E Excursion: 2.11 cm E-F Wetzel: 0.09 m/s EPSS: 0.48 cm HR: 77.41 [...] TV A Billy: 0.66 m/s TV Dec Wetzel: 4.36 m/s2 TV Dec Time: 184.41 ms TV E Billy: 0.80 m/s TV E/A Rat io: 1.21 Dermatologist Managing Partner: NEDRA Authenticated by: Gil Coronel MD Report [...] nutritional supplements as recommend ed by nutrition service/poultry boner. Jose Maria Espinal MD 01/17/2015 4:29 PM onversion Transa ction, Provider Unknown - 01/17/2015 3:15 PM PDT Case Management by PHUONG Sandhu at 01/17/15 1515 Author: PHUONG Sandhu Service: (none) Author Type: Telecommunication Equipment Repairer Filed: 01/17/15 1518 Date of Service: 01/17/155 Status: Signed Distribution Coordinator: PHUONG Sandhu (Telecommunication Equipment Repairer) 01/17/15 1500 Discharge Planning Evaluation Admitting Diagnosis Near syncope, elevated tropinin, non-stemi, CKD Anticipated Disposition Facility Type detention facility Medicare Important Message ([facility]ED[facility]) Given Fdc [facility] Other (comment) ([facility]) RADIOLOGIST CHIEF OF BREAST IMAGING met with Pt for discharge planning, on board with going to [facility] when medically ready. RADIOLOGIST CHIEF OF BREAST IMAGING p/c to [facility] - will accept Pt when medically ready. [facility] (73 miles) [address] [place] [address], [place] [employer]: Will DCP: [facility] Transportation: [facility] Facility Van - [employer]: Will [phone] Medicare important message signed and copy in chart LUIS FOUNTAIN, Agricultural Education Instructor [phone] cell Rosangela Zavala MD - 01/17/2015 1:11 PM PDT Progress Notes by Rosangela Steinberg MD at 01/17/15 1311 Author: Rosangela Steinberg MD Service: Infectious Disease Author Type: Physician Filed: 01/17/15 6330 Date of Service: 01/17/15 1311 Status: Signed Distribution Coordinator: Rosangela Steinberg MD (Physician) [facility] Service: Infectious Disease Progress Note Hospital Day: [...] diarrhea. Had initially presented to [facility] in [place] with similar complaints. Was foun d to have an elevated troponin. She was mainly admitted as a non-STEMI. Found to have a leuk ocytosis. Since patient is immunocompromised, she was started empirically on IV ceftriaxone. Chest x-ray showed no infiltrate. Patient denies any recent fevers or chills. She went to [facility] mainly becau se of syncope. [...] extraluminal fluid collection abdomen pelvis without contrast [[id number]] Impression 1. Hypoinflated chest, but no evident infiltrate chest 1 view [[id number]] Impression 1. Indication for study and thus [...] 01/16/152137 Date of Service: 01/16/152127 Status: Signed Distribution Coordinator: Juju Riggins MD (Physician) [facility] Service: Cardiology Progress Note Hospital Day: LOS: [...] Author: PHUONG Sandhu Service: (none) Author Type: Telecommunication Equipment Repairer Filed: 01/16/156 Date of Service: 01/16/151642 Status: Signed Distribution Coordinator: PHUONG Sandhu (Telecommunication Equipment Repairer) 01/16/15 1600 Discharge Planning Evaluation Admitting Diagnosis Near syncope, elevated tropinin, non-stemi, CKD Anticipated Disposition Facility Type detention facility [facility]dc Facility Other (comment) ([facility]) PHUONG received p/c from Will, admissions at [facility], states they are willi ng to accept Pt to their Fdc Facility, states their house physician will not pre scribe Methadone. Will states she will start authorization process with [employer] who is Managing the Medicare benefits. Will states the first 20 days are covered at 100% then day 21 will be $100.00 a day. DCP: [facility] or Home LUIS FOUNTAIN,Agricultural Education Instructor [phone] cell Jose Maria Grimes MD - 01/16/2015 11:29 AM PDTFormatting of this note might be different from th e original. Progress Notes by Jose Maria Espinal MD at 01/16/15 1129 Author: Jose Maria Espinal MD Service: Hospitalist Author Type: Physician Filed: 01/17/15 1149 Date of Service: 01/16/15 1129 Status: Signed Distribution Coordinator: Jose Maria Espinal MD (Physician) Related Notes: Original Note by Jose Maria Espinal MD (Physician) filed at 01/16/15 1137 [facility] Service: Hospitalist Progress Note Pt: Cole Ernst AGE/SEX: 69 y.o. female : 1945 ROOM: [address] [place] [address] History of Present Illness: " The patient [...] EMS. Patient was taken to [facility] in [place]. Susie ent was noted to have a [...] CT done several days ago while in [place]. She also stat es that her vomiting and diarrhea have significantly improved. She denies any fevers, hemat emesis, melena, bright red blood per rectum, hematuria, dysuria, she denies any leg pain or swelling. No palpitations. She states she does have a history of "kidney disease" and was told that it was secondary to cyclosporine. However, she is not seen kidney specialist [facility] e her liver transplant.".....per admitting MD/Dr. [...] collected as n oted. I urged the billing and accounting staff assistant to introduce a hat so that sample [...] contrast. Prior study for comparison: None FINDINGS: [employer] 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 deg enerative changes of [...] LA/Ao: 1.57 D-E Excursion: 2.11 cm E-F Wetzel: 0.09 m/s EPSS: 0.48 cm HR: 77.41 [...] TV A Billy: 0.66 m/s TV Dec Wetzel: 4.36 m/s2 TV Dec Time: 184.41 ms TV E Billy: 0.80 m/s TV E/A Rat io: 1.21 Dermatologist Managing Partner: NEDRA Authenticated by: Gil Coronel MD Report [...] pressure has been showing increasing trend since al toprolol has been held on admission due [...] Date of Service: 01/16/15 1102 Status: Signed Distribution Coordinator: Natalio Benito PT (Physical Therapist) 01/16/15 1102 PT Last Visit PT Received On 01/16/15 Reason for Treatment Deconditioning;Other (comment) (NSTEMI; Syncope) Requires PT Follow Up Awaiting tx order Follow up PT Only? No PT Eval/Reassessment Date 01/16/15 Assistance Required 1 person Educational Consultant Needed No Home Environment Type of Home Apartment ground level Home Exterior Layout Entry steps none Home Interior Layout Lives on main level with bedroom/bathroom Bathroom Shower/Tub Tub/shower unit Bathroom Toilet Standard Bathroom Equipment Shower stool;Grab bars in shower/bath;Grab bars outside of shower/bath Bathroom Accessibility Other (Comment) (Small bathroom) Home Equipment Walker 4 wheeled;Cane single point Prior Function Level of [place] Modified independent with functional mobility;Modified independent wi [...] (sitting in recliner w/ call light and CHEF & OWNER present) Restraints Initially in Place No Precautions [...] Eval/Reassessment Date 01/16/15 Assistance Required 1 person Educational Consultant Needed No Precautions Other Precautions Fall Risk [...] support. Patient in the recli ner w/ CHEF & OWNER present at end of session, no new [...] (sitting in recliner w/ call light and CHEF & OWNER present) Restraints Initially in Place No Plan [...] Date of Service: 01/16/15 1045 Status: Signed Distribution Coordinator: Nupur Tadeo MD (Physician) [facility] Service: Infectious Disease Progress Note Hospital Day: [...] presented to [facility] in [place] with similar complaints. Was found to have an elevated troponin . She was mainly admitted as a non-STEMI. Found to have a leukocytosis. Since patient is imm unocompromised, she was started empirically on IV ceftriaxone. Chest x-ray showed no infiltrate. Patient denies any recent fevers or chills. She went to [facility] mainly becau se of syncope. [...] Author: PHUONG Sandhu Service: (none) Author Type: Telecommunication Equipment Repairer Filed: 01/16/15 1042 Date of Service: 01/16/15 1030 Status: Signed Distribution Coordinator: PHUONG Sandhu (Telecommunication Equipment Repairer) 01/16/15 1000 Discharge Planning Evaluation Admitting Diagnosis Near syncope, elevated tropinin, non-stemi, CKD Anticipated Disposition Facility Type detention facility RADIOLOGIST CHIEF OF BREAST IMAGING met with Pt and discussed discharge planning, states she has concerns returning home at this time, as Pt resides alone. RADIOLOGIST CHIEF OF BREAST IMAGING discussed rehab options, SNF vs Home Health vs Outpatient PT. Pt states her sister (Annie Tipton [phone] cell) assists with IADLs as Pt does not polo ojeda. Pt states she resides alone and has been doing ADLs on her own. Pt states she uses a 4WW with seat at home, then uses a cane when out of the home, stated, "I am a little vain" abou t using the 4WW in public. Pt is interested in [facility] [place], due to close proximity to her home. RADIOLOGIST CHIEF OF BREAST IMAGING faxe d SNF referral. Pt is a [...] need SNF Anticipated DCP: Pending placement at [facility] [place] LUIS FOUNTAIN, Agricultural Education Instructor [phone] cell Luisito Mejía - 01/16/2015 9:12 AM PDTFormatting of this note might be different from the or iginal. Progress Notes by Luisito Thomas MD at 01/16/15911 Author: Luisito Thomas MD Service: Nephrology Author Type: Physician Filed: 01/20/15 1907 Date of Service: 01/16/15911 Status: Signed Distribution Coordinator: Luisito Thomas MD (Physician) [facility] Service: NEPHROLOGY PROGRESS Note Cole Ernst 69 y.o. [id number] 4445/[id number] female [facility] Day: LOS: 2 days The patient is a 69 y.o. 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 High CIWA this shift =4. Patient c/o generalized pain, treated with PRN [place] per orders. Patient observed to be sle eping, following PRN medication and repositioning. Patient continues to be NSR-ST on tele. Vitals stable. Will continue to monitor patient. ose Maria Black MD - 01/15/2015 3:19 PM PDTFormatting of this note might be different from armando tellez original. Progress Notes by Jose Maria Espinal MD at 01/15/15 4943 Author: Jose Maria Espinal MD Service: Hospitalist Author Type: Physician Filed: 01/16/15 0925 Date of Service: 01/15/151518 Status: Signed Distribution Coordinator: Jose Maria Espinal MD (Physician) Related Notes: Original Note by Jose Maria Espinal MD (Physician) filed at 01/15/151939 [facility] Service: Hospitalist Progress Note Pt: Cole Ernst [...] EMS. Patient was taken to [facility] in [place]. Susie ent was noted to have a [...] CT done several days ago while in [place]. She also stat es that her vomiting and diarrhea have significantly improved. She denies any fevers, hemat emesis, melena, bright red blood per rectum, hematuria, dysuria, she denies any leg pain or swelling. No palpitations. She states she does have a history of "kidney disease" and was told that it was secondary to cyclosporine. However, she is not seen kidney specialist [facility] e her liver transplant.".....per admitting MD/Dr. [...] contrast. Prior study for comparison: None FINDINGS: [employer] 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 deg enerative changes of [...] LA/Ao: 1.57 D-E Excursion: 2.11 cm E-F Wetzel: 0.09 m/s EPSS: 0.48 cm HR: 77.41 [...] TV A Billy: 0.66 m/s TV Dec Wetzel: 4.36 m/s2 TV Dec Time: 184.41 ms TV E Billy: 0.80 m/s TV E/A Rat io: 1.21 Dermatologist Managing Partner: NEDRA Authenticated by: Gil Coronel MD Report [...] Elevated troponins, question underlying non ST elevation TX. Continue current medical th erapy. I appreciate [...] (none) Author Type: Registered Dietitian Filed: 01/15/15 1431 Date of Service: 01/15/151429 Status: Signed Distribution Coordinator: Ronda Michaels RD (Registered Dietitian) 01/15/15 8826 Subjective Timepoint Admit Pt c/o In to [...] Estimated Energy Needs Total Energy Estimated Needs 8126-9908 kcal Method for Estimating Needs 25-30 kcal/kg [...] Date of Service: 01/15/15 1043 Status: Signed Distribution Coordinator: Luisito Thomas MD (Physician) [facility] Service: NEPHROLOGY PROGRESS Note Cole Ernst 69 y.o. [id number] 4445/4445-1 female [facility] Day: LOS: 1 day The patient is a 69 y.o. 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 See ED Record for Physician Inter pretation. Confirmed by MUSE READ ONLY, -COMPUTER (500), general expeditor Shala Gramajo (25) on 01/14/2015 11:17 [...] (non-ST elevated myocardial infarction) (HCC) Active Problems: ZLUAY (acute kidney injury) (HCC) Liver replaced by [...] K 4.4 11/15/2014 S/P LIVER TXP AT [place] IN 1991 IMMUNOSUPPRESSION ON CYCLOSPORIN 75 [...] 01/14/152316 Date of Service: 01/14/152315 Status: Signed Distribution Coordinator: Giovanna Bejarano RN (Registered Nurse) Called Dr. [...] 01/14/152226 Date of Service: 01/14/152226 Status: Signed Distribution Coordinator: Jazz Rahman RPH (Pharmacist) Clinical Pharmacy Note - Renal Dose Adjustment Cole Ernst 69 y.o. female Ht Readings from Last 1 Encounters: 01/14/15 1.6 m (5' 3") Wt Readings from Last 1 Encounters: 01/14/15 89.6 kg (197 lb 8.5 oz) CREATININE Date Value Ref Range Status 01/14/2015 2.4* 0.50 - 1.00 mg/dL Final Comment: Testing performed at [facility];[address] [place] [address];[place] [address] CREATININE: 2.4 mg/dL ABNORMAL (01/14/15 1548) Estimated [...] PHUONG Crump LICSW Service: (none) Author Type: Agricultural Education Instructor Filed: 01/14/151734 Date of Service: 01/14/151733 Status: Signed Distribution Coordinator: PHUONG Crump LICSW (Agricultural Education Instructor) 01/14/151727 Discharge Planning Evaluation Admitting Diagnosis Near syncope, elevated tropinin, non-stemi, CKD Readmission No Living Arrangements Alone Support Systems Family members;Friends/neighbors Type of Residence Private residence House type Apartment Bathrooms on 1st Floor 1-Full Independent with ADL's Yes Independent with Mobility No-comment Home Care Services No Mental Status Oriented Power of Canoe Inspector No;Other (comment) Resources Transportation issues No Prescription Plan Yes Name of Pharmacy [facility] in [place], [place] Previous home health equipment Yes Anticipated Disposition Facility Type Home Met with patient and discussed discharge planning, Pt is a 69 y.o., female who reports skyleri mack alone. Patient reports her sister, Annie Tipton, will transport her home a t discharge. Patient's PCP is: KI DE JESUS (General) Patient's insurance:b [employer] & Medicare Coverage concerns: Medication coverage/concerns: Doreen Bedside Delivery: [facility] resources utilized / needed: TBD [...] preparation was | | | performed by [employer], [facility], [facility] | | | [place] [address] (Patient Safety Sitter: Martin | | Tariq Galvan M.D.; NINA#: [id number]). Diagnostician: Martin Galvan | | | Pathologist [...] EXTERNAL | | | | performed at [facility], [address] | LAB | | | | [address], | | | | | | [place] [address] | | | | + + + [...] EXTERNAL | | | | performed at [facility], [address] | | LAB | | | | [address], | | | | | | [place] [address] | | | | + + + [...] | | | | | [place] [address] | | | | + + + [...] | | | | | [place] [address] | | | | + + + + + + | CO2 | 28Comment: Testing | 23 - 32 mmol/L | EXTERNAL | | | | performed at [facility], [address] | | LAB | | | | [address], | | | | | | [place] [address] | | | | + + + + + + | Anion Gap | 10Comment: Testing | 5 - 20 mmol/L | EXTERNAL | | | | performed at [facility], [address] | | LAB | | | | [address], | | | | | | [place] [address] | | | | + + + + + + | Glucose, | 107 (H)Comment: Testing | 65 - 99 mg/dL | EXTERNAL | | | Fasting | performed at [facility], [address] | | LAB | | | | [address], | | | | | | [place] [address] | | | | + + + + + + | BUN | 8Comment: Testing | 8 - 25 mg/dL | EXTERNAL | | | | performed at [facility], [address] | | LAB | | | | [address], | | | | | | [place] [address] | | | | + + + + + + | Creatinine | 0.96Comment: Testing | 0.50 - 1.00 | EXTERNAL | | | | performed at [facility], [address] | mg/dL | LAB | | | | [address], | | | | | | [place] [address] | | | | + + + + + + | BUN/Creatin | 8Comment: Testing | | EXTERNAL | | | ine Ratio | performed at [facility], [address] | | LAB | | | | [address], | | | | | | [place] [address] | | | | + + + + + + | Calcium | 8.6Comment: Testing | 8.5 - 10.5 | EXTERNAL | | | | performed at [facility], [address] | mg/dL | LAB | | | | [address], | | | | | | [place] [address] | | | | + + + [...] | | | | | | at [facility], [address] | | | | | | [address], | | | | | | [place] [address] | | | | + + + [...] + + + | COLE ERNST 1945 [place] MYOCARDIAL PERFUSION SPECT - STRESS | | [...] - 01/05/2019 4:32 AM PDT COLE Corcoran [id number] MYOCARDIAL | | PERFUSION SPECT - STRESS [...] EXTERNAL | | | | performed at [facility], [address] | K/uL | LAB | | | | [address], | | | | | | [place] [address] | | | | + + + + + + | RED CELL | 3.41 (L)Comment: Testing | 3.70 - 5.10 | EXTERNAL | | | COUNT | performed at [facility], [address] | [address]/uL | LAB | | | | [address], | | | | | | [place] [address] | | | | + + + + + + | Hgb | 11.9Comment: Testing | 11.3 - 15.5 | EXTERNAL | | | | performed at [facility], [address] | g/dL | LAB | | | | [address], | | | | | | [place] [address] | | | | + + + + + + | Hematocrit, | 35.7Comment: Testing | 34.0 - 46.0 % | EXTERNAL | | | POC | performed at [facility], [address] | | LAB | | | | [address], | | | | | | [place] [address] | | | | + + + + + + | MCV | 104.6 (H)Comment: | 80.0 - 100.0 fl | EXTERNAL | | | | Testing performed at | | LAB | | | | [facility], [address] [facility] | | | | | | [place] | | | | | | [address] | | | | + + + + + + | MCH | 34.9 (H)Comment: Testing | 27.0 - 34.0 pg | EXTERNAL | | | | performed at [facility], [address] | | LAB | | | | [address], | | | | | | [place] [address] | | | | + + + + + + | MCHC | 33.3Comment: Testing | 32.0 - 35.5 | EXTERNAL | | | | performed at [facility], [address] | g/dL | LAB | | | | [address], | | | | | | [place] [address] | | | | + + + + + + | RDW-CV | 50.8Comment: Testing | 37 - 53 fl | EXTERNAL | | | | performed at [facility], [address] | | LAB | | | | [address], | | | | | | [place] [address] | | | | + + + [...] | | | | | [place] [address] | | | | + + + + + + | MPV | 12.6Comment: Testing | fl | EXTERNAL | | | | performed at [facility], [address] | | LAB | | | | [address], | | | | | | [place] [address] | | | | + + + + + + | Differentia | AUTOMATEDComment: | | EXTERNAL | | | l Type | Testing performed at | | LAB | | | | [facility], [address] | | | | | | [place] | | | | | | [address] | | | | + + + + + + | % Segmented | 40.31Comment: Testing | % | EXTERNAL | | | | performed at [facility], [address] | | LAB | | | Neutrophils | [address], | | | | | | [place] [address] | | | | + + + + + + | % | 39.78Comment: Testing | % | EXTERNAL | | | Lymphocytes | performed at [facility], [address] | | LAB | | | | [address], | | | | | | [place] [address] | | | | + + + + + + | % Monocytes | 12.51Comment: Testing | % | EXTERNAL | | | | performed at [facility], [address] | | LAB | | | | [address], | | | | | | [place] [address] | | | | + + + + + + | % | 6.45Comment: Testing | % | EXTERNAL | | | Eosinophils | performed at [facility], [address] | | LAB | | | | [address], | | | | | | [place] [address] | | | | + + + + + + | % Basophils | 0.95Comment: Testing | % | EXTERNAL | | | | performed at [facility], [address] | | LAB | | | | [address], | | | | | | [place] [address] | | | | + + + + + + | Absolute | 3.26Comment: Testing | 1.90 - 7.40 | EXTERNAL | | | Segmented | performed at [facility], [address] | K/uL | LAB | | | Neutrophils | [address], | | | | | | [place] [address] | | | | + + + + + + | Absolute | 3.21Comment: Testing | 1.00 - 3.90 | EXTERNAL | | | Lymphocytes | performed at [facility], [address] | K/uL | LAB | | | | [address], | | | | | | [place] [address] | | | | + + + + + + | Absolute | 1.01 (H)Comment: Testing | 0.00 - 0.80 | EXTERNAL | | | Monocytes | performed at [facility], [address] | [address]/uL | LAB | | | | [address], | | | | | | [place] [address] | | | | + + + + + + | Absolute | 0.52 (H)Comment: Testing | 0.00 - 0.50 | EXTERNAL | | | Eosinophils | performed at [facility], [address] | K/uL | LAB | | | | [address], | | | | | | [place] [address] | | | | + + + + + + | Absolute | 0.08Comment: Testing | 0.00 - 0.10 | EXTERNAL | | | Basophils | performed at [facility], [address] | K/uL | LAB | | | | [address], | | | | | | [place] [address] | | | | + + + + + + | RBC | RBC AND PLT MORPHOLOGY | | EXTERNAL | | | Morphology | APPEAR NORMALComment: | | LAB | | | | Testing performed at | | | | | | [facility], [address] [facility] | | | | | | [place] | | | | | | [address] | | | | + + + [...] EXTERNAL | | | | performed at [facility], [address] | | LAB | | | | [address], | | | | | | [place] [address] | | | | + + + [...] | | | | | [place] [address] | | | | + + + [...] | | | | | [place] [address] | | | | + + + + + + | K | 3.8Comment: Testing | 3.5 - 4.9 | EXTERNAL | | | | performed at [facility], [address] | mmol/L | LAB | | | | [address], | | | | | | [place] [address] | | | | + + + + + + | Cl | 101Comment: Testing | 99 - 109 mmol/L | EXTERNAL | | | | performed at [facility], [address] | | LAB | | | | [address], | | | | | | [place] [address] | | | | + + + + + + | CO2 | 27Comment: Testing | 23 - 32 mmol/L | EXTERNAL | | | | performed at [facility], [address] | | LAB | | | [address], | | | | | | [place] [address] | | | | + + + + + + | Anion Gap | 12Comment: Testing | 5 - 20 mmol/L | EXTERNAL | | | | performed at [facility], [address] | | LAB | | | | [address], | | | | | | [place] [address] | | | | + + + + + + | Glucose, | 118 (H)Comment: Testing | 65 - 99 mg/dL | EXTERNAL | | | Fasting | performed at [facility], [address] | | LAB | | | | [address], | | | | | | [place] [address] | | | | + + + + + + | BUN | 7 (L)Comment: Testing | 8 - 25 mg/dL | EXTERNAL | | | | performed at [facility], [address] | | LAB | | | | [address], | | | | | | [place] [address] | | | | + + + [...] | | | | | [place] [address] | | | | + + + + + + | Calcium | 7.5 (L)Comment: Testing | 8.5 - 10.5 | EXTERNAL | | | | performed at [facility], [address] | mg/dL | LAB | | | | [address], | | | | | | [place] [address] | | | | + + + + + + | Protein, | 7.2Comment: Testing | 6.3 - 8.2 g/dL | EXTERNAL | | | Total | performed at [facility], [address] | | LAB | | | | [address], | | | | | | [place] [address] | | | | + + + + + + | Albumin | 3.1 (L)Comment: Testing | 3.3 - 4.8 g/dL | EXTERNAL | | | | performed at [facility], [address] | | LAB | | | | [address], | | | | | | [place] [address] | | | | + + + + + + | Globulin | 4.1Comment: Testing | 1.3 - 4.9 g/dL | EXTERNAL | | | | performed at [facility], [address] | | LAB | | | | [address], | | | | | | [place] [address] | | | | + + + + + + | A/G Ratio | 0.8 (L)Comment: Testing | 1.0 - 2.4 | EXTERNAL | | | | performed at [facility], [address] | | LAB | | | | [address], | | | | | | [place] [address] | | | | + + + + + + | Bilirubin | 0.5Comment: Testing | 0.1 - 1.5 mg/dL | EXTERNAL | | | Total | performed at [facility], [address] | | LAB | | | | [address], | | | | | | [place] [address] | | | | + + + + + + | ALP, | 76Comment: Testing | 35 - 115 U/L | EXTERNAL | | | External | performed at [facility], [address] | | LAB | | | | [address], | | | | | | [place] [address] | | | | + + + + + + | AST | 43Comment: Testing | 10 - 45 U/L | EXTERNAL | | | | performed at [facility], [address] | | LAB | | | | [address], | | | | | | [place] [address] | | | | + + + + + + | ALT | 25Comment: Testing | 10 - 65 U/L | EXTERNAL | | | | performed at [facility], [address] | | LAB | | | | [address], | | | | | | [place] [address] | | | | + + + [...] | | | | | [place] [address] | | | | + + + [...] EXTERNAL | | | | performed at [facility];[address] | mmol/L | LAB | | | | [address];[place] | | | | | | [address] | | | | + + + [...] EXTERNAL | | | | performed at [facility] | | LAB | | | | [facility];[place], [place] | | | | | | [address] | | | | + + + [...] EXTERNAL | | | | performed at [facility];[address] | | LAB | | | | [address];[place] | | | | | | [address] | | | | + + + [...] EXTERNAL | | | | performed at [facility];[address] | mmol/L | LAB | | | | [address];[place], [place] | | | | | | [address] | | | | + + + [...] EXTERNAL | | | | performed at [facility];[address] | | LAB | | | | [address];[place] | | | | | | [address] | | | | + + + [...] EXTERNAL | | | | performed at [facility];8 | | LAB | | | | [facility];[place], [place] | | | | | | [address] | | | | + + + [...] | | | | | [place] [address] | | | | + + + + + + | RED CELL | 3.40 (L)Comment: Testing | 3.70 - 5.10 | EXTERNAL | | | COUNT | performed at [facility], [address] | [address]/uL | LAB | | | | [address], | | | | | | [place] [address] | | | | + + + + + + | Hgb | 12.0Comment: Testing | 11.3 - 15.5 | EXTERNAL | | | | performed at [facility], [address] | g/dL | LAB | | | | [address], | | | | | | [place] [address] | | | | + + + + + + | Hematocrit, | 35.8Comment: Testing | 34.0 - 46.0 % | EXTERNAL | | | POC | performed at [facility], [address] | | LAB | | | | [address], | | | | | | [place] [address] | | | | + + + + + + | MCV | 105.3 (H)Comment: | 80.0 - 100.0 fl | EXTERNAL | | | | Testing performed at | | LAB | | | | [facility], [address] [facility] | | | | | | [place] | | | | | | [address] | | | | + + + + + + | MCH | 35.3 (H)Comment: Testing | 27.0 - 34.0 pg | EXTERNAL | | | | performed at [facility], [address] | | LAB | | | | [address], | | | | | | [place] [address] | | | | + + + + + + | MCHC | 33.6Comment: Testing | 32.0 - 35.5 | EXTERNAL | | | | performed at [facility], [address] | g/dL | LAB | | | | [address], | | | | | | [place] [address] | | | | + + + + + + | RDW-CV | 50.8Comment: Testing | 37 - 53 fl | EXTERNAL | | | | performed at [facility], [address] | | LAB | | | | [address], | | | | | | [place] [address] | | | | + + + + + + | Platelet | 149 (L)Comment: Testing | 150 - 400 K/uL | EXTERNAL | | | Count | performed at [facility], [address] | | LAB | | | Plasma | [address], | | | | | | [place] [address] | | | | + + + + + + | MPV | 13.0Comment: Testing | fl | EXTERNAL | | | | performed at [facility], [address] | | LAB | | | | [address], | | | | | | [place] [address] | | | | + + + + + + | Differentia | AUTOMATEDComment: | | EXTERNAL | | | l Type | Testing performed at | | LAB | | | | [facility], [address] | | | | | | [place] | | | | | | [address] | | | | + + + + + + | % Segmented | 52.08Comment: Testing | % | EXTERNAL | | | | performed at [facility], [address] | | LAB | | | Neutrophils | [address], | | | | | | [place] [address] | | | | + + + + + + | % | 32.37Comment: Testing | % | EXTERNAL | | | Lymphocytes | performed at [facility], [address] | | LAB | | | | [address], | | | | | | [place] [address] | | | | + + + + + + | % Monocytes | 10.07Comment: Testing | % | EXTERNAL | | | | performed at [facility], [address] | | LAB | | | | [address], | | | | | | [place] [address] | | | | + + + + + + | % | 4.41Comment: Testing | % | EXTERNAL | | | Eosinophils | performed at [facility], [address] | | LAB | | | | [address], | | | | | | [place] [address] | | | | + + + + + + | % Basophils | 1.07Comment: Testing | % | EXTERNAL | | | | performed at [facility], [address] | | LAB | | | | [address], | | | | | | [place] [address] | | | | + + + + + + | Absolute | 5.59Comment: Testing | 1.90 - 7.40 | EXTERNAL | | | Segmented | performed at [facility], [address] | K/uL | LAB | | | Neutrophils | [address], | | | | | | [place] [address] | | | | + + + + + + | Absolute | 3.48Comment: Testing | 1.00 - 3.90 | EXTERNAL | | | Lymphocytes | performed at [facility], [address] | K/uL | LAB | | | | [address], | | | | | | [place] [address] | | | | + + + + + + | Absolute | 1.08 (H)Comment: Testing | 0.00 - 0.80 | EXTERNAL | | | Monocytes | performed at [facility], [address] | [address] | LAB | | | | [address], | | | | | | [place] [address] | | | | + + + + + + | Absolute | 0.47Comment: Testing | 0.00 - 0.50 | EXTERNAL | | | Eosinophils | performed at [facility], [address] | K/uL | LAB | | | | [address], | | | | | | [place] [address] | | | | + + + + + + | Absolute | 0.12 (H)Comment: Testing | 0.00 - 0.10 | EXTERNAL | | | Basophils | performed at [facility], [address] | [address]/uL | LAB | | | | [address], | | | | | | [place] [address] | | | | + + + + + + | RBC | NORMAL RBC MORPHComment: | | EXTERNAL | | | Morphology | Testing performed at | | LAB | | | | [facility], [address] [facility] | | | | | | [place] | | | | | | [address] | | | | + + + + + + | Differentia | 1+ GIANT PLTComment: | | EXTERNAL | | | l Comments | Testing performed at | | LAB | | | | [facility], [address] | | | | | | [place] | | | | | | [address] | | | | + + + [...] | | | | | [place] [address] | | | | + + + + + + | K | 3.2 (L)Comment: Testing | 3.5 - 4.9 | EXTERNAL | | | | performed at [facility], [address] | mmol/L | LAB | | | | [address], | | | | | | [place] [address] | | | | + + + + + + | Cl | 100Comment: Testing | 99 - 109 mmol/L | EXTERNAL | | | | performed at [facility], [address] | | LAB | | | | [address], | | | | | | [place] [address] | | | | + + + + + + | CO2 | 28Comment: Testing | 23 - 32 mmol/L | EXTERNAL | | | | performed at [facility], [address] | | LAB | | | | [address], | | | | | | [place] [address] | | | | + + + + + + | Anion Gap | 13Comment: Testing | 5 - 20 mmol/L | EXTERNAL | | | | performed at [facility], [address] | | LAB | | | | [address], | | | | | | [place] [address] | | | | + + + + + + | Glucose, | 114 (H)Comment: Testing | 65 - 99 mg/dL | EXTERNAL | | | Fasting | performed at [facility], [address] | | LAB | | | | [address], | | | | | | [place] [address] | | | | + + + + + + | BUN | 8Comment: Testing | 8 - 25 mg/dL | EXTERNAL | | | | performed at [facility], [address] | | LAB | | | | [address], | | | | | | [place] [address] | | | | + + + + + + | Creatinine | 0.94Comment: Testing | 0.50 - 1.00 | EXTERNAL | | | | performed at [facility], [address] | mg/dL | LAB | | | | [address], | | | | | | [place] [address] | | | | + + + + + + | BUN/Creatin | 9Comment: Testing | | EXTERNAL | | | ine Ratio | performed at [facility], [address] | | LAB | | | | [address], | | | | | | [place] [address] | | | | + + + + + + | Calcium | 7.8 (L)Comment: Testing | 8.5 - 10.5 | EXTERNAL | | | | performed at [facility], [address] | mg/dL | LAB | | | | [address], | | | | | | [place] [address] | | | | + + + + + + | Protein, | 7.8Comment: Testing | 6.3 - 8.2 g/dL | EXTERNAL | | | Total | performed at [facility], [address] | | LAB | | | | [address], | | | | | | [place] [address] | | | | + + + + + + | Albumin | 3.3Comment: Testing | 3.3 - 4.8 g/dL | EXTERNAL | | | | performed at [facility], [address] | | LAB | | | [address], | | | | | | [place] [address] | | | | + + + + + + | Globulin | 4.5Comment: Testing | 1.3 - 4.9 g/dL | EXTERNAL | | | | performed at [facility], [address] | | LAB | | | [address], | | | | | | [place] [address] | | | | + + + + + + | A/G Ratio | 0.7 (L)Comment: Testing | 1.0 - 2.4 | EXTERNAL | | | | performed at [facility], [address] | | LAB | | | | [address], | | | | | | [place] [address] | | | | + + + + + + | Bilirubin | 0.4Comment: Testing | 0.1 - 1.5 mg/dL | EXTERNAL | | | Total | performed at [facility], [address] | | LAB | | | | [address], | | | | | | [place] [address] | | | | + + + + + + | ALP, | 83Comment: Testing | 35 - 115 U/L | EXTERNAL | | | External | performed at [facility], [address] | | LAB | | | | [address], | | | | | | [place] [address] | | | | + + + + + + | AST | 34Comment: Testing | 10 - 45 U/L | EXTERNAL | | | | performed at [facility], [address] | | LAB | | | | [address], | | | | | | [place] [address] | | | | + + + + + + | ALT | 24Comment: Testing | 10 - 65 U/L | EXTERNAL | | | | performed at [facility], [address] | | LAB | | | | [place], | | | | | | [place] [address] | | | | + + + [...] W | | | | | | [place], | | | | | | [place] [address] | | | | + + + [...] LAB | | | | performed at [facility] | | | | | | [facility];[place], [place] | | | | | | [address] [...] LAB | | | | performed at [facility];[address] | | | | | | [address];[place], [place] | | | | | | [address] | | | | + + + [...] EXTERNAL | | | | performed at [facility];[address] | mmol/L | LAB | | | | [address];[place], [place] | | | | | | [address] | | | | + + + [...] EXTERNAL | | | | performed at [facility];[address] | | LAB | | | | [address];[place], [place] | | | | | | [address] | | | | + + + [...] TESTING. | | | Testing performed at [facility], [address] | | | [place] [address] | | + + + + +---------+ [...] | Testing performed at | | | [facility], [address] [place] [address] | | + + + + +---------+ [...] NONE SEEN to 1+ Testing performed at [facility], [address] [facility] | | | [place] [address] | | + + + + +---------+ [...] antigen detected by ICA Testing performed at [facility], [address] | | | [place] [facility] [place] [address] | | + + + + +---------+ [...] at | | | | | | [facility], [address] | | | | | | [place] | | | | | | [address] | | | | + + + [...] [place] | | | | | | [place] [address] | | | | + + + [...] EXTERNAL | | | | performed at [facility];[address] | | LAB | | | | [facility];[place], [place] | | | | | | [address] | | | | + + + + + + | CMV DNA | NOT DETECTEDComment: | | EXTERNAL | | | QUANTITATIV | Unit: IU/MLTesting | | LAB | | | E INTERP | performed at [facility], [address] | | | | | | [place] | | | | | | [place] [address] | | | | + + + + + + | CMV DNA, | NOT DETECTEDComment: | | EXTERNAL | | | Qual PCR | Unit: COPIES/MLTesting | | LAB | | | | performed at [facility], [address] | | | | | | [place] | | | | | | [place] [address] | | | | + + + [...] [place] | | | | | | [address] | | | | + + + [...] EXTERNAL | | | | performed at [facility], [address] | K/uL | LAB | | | | [address], | | | | | | [place] [address] | | | | + + + + + + | RED CELL | 3.28 (L)Comment: Testing | 3.70 - 5.10 | EXTERNAL | | | COUNT | performed at [facility], [address] | M/uL | LAB | | | | [address], | | | | | | [place] [address] | | | | + + + + + + | Hgb | 11.6Comment: Testing | 11.3 - 15.5 | EXTERNAL | | | | performed at [facility], [address] | g/dL | LAB | | | | [address], | | | | | | [place] [address] | | | | + + + + + + | Hematocrit, | 34.5Comment: Testing | 34.0 - 46.0 % | EXTERNAL | | | POC | performed at [facility], [address] | | LAB | | | | [address], | | | | | | [place] [address] | | | | + + + + + + | MCV | 105.1 (H)Comment: | 80.0 - 100.0 fl | EXTERNAL | | | | Testing performed at | | LAB | | | | [facility], [address] | | | | | | [place] | | | | | | [address] | | | | + + + + + + | MCH | 35.3 (H)Comment: Testing | 27.0 - 34.0 pg | EXTERNAL | | | | performed at [facility], [address] | | LAB | | | | [address], | | | | | | [place] [address] | | | | + + + + + + | MCHC | 33.5Comment: Testing | 32.0 - 35.5 | EXTERNAL | | | | performed at [facility], [address] | g/dL | LAB | | | | [address], | | | | | | [place] [address] | | | | + + + + + + | RDW-CV | 50.8Comment: Testing | 37 - 53 fl | EXTERNAL | | | | performed at [facility], [address] | | LAB | | | | [address], | | | | | | [place] [address] | | | | + + + + + + | Platelet | 144 (L)Comment: Testing | 150 - 400 K/uL | EXTERNAL | | | Count | performed at [facility], [address] | | LAB | | | Plasma | [address], | | | | | | [place] [address] | | | | + + + + + + | MPV | 13.0Comment: Testing | fl | EXTERNAL | | | | performed at [facility], [address] | | LAB | | | | [address], | | | | | | [place] [address] | | | | + + + + + + | Differentia | AUTOMATEDComment: | | EXTERNAL | | | l Type | Testing performed at | | LAB | | | | [facility], [address] | | | | | | [place] | | | | | | [address] | | | | + + + + + + | % Segmented | 37.99Comment: Testing | % | EXTERNAL | | | | performed at [facility], [address] | | LAB | | | Neutrophils | [address], | | | | | | [place] [address] | | | | + + + + + + | % | 43.49Comment: Testing | % | EXTERNAL | | | Lymphocytes | performed at [facility], [address] | | LAB | | | | [address], | | | | | | [place] [address] | | | | + + + + + + | % Monocytes | 11.24Comment: Testing | % | EXTERNAL | | | | performed at [facility], [address] | | LAB | | | | [address], | | | | | | [place] [address] | | | | + + + + + + | % | 5.97Comment: Testing | % | EXTERNAL | | | Eosinophils | performed at [facility], [address] | | LAB | | | | [address], | | | | | | [place] [address] | | | | + + + + + + | % Basophils | 1.31Comment: Testing | % | EXTERNAL | | | | performed at [facility], [address] | | LAB | | | | [address], | | | | | | [place] [address] | | | | + + + + + + | Absolute | 4.01Comment: Testing | 1.90 - 7.40 | EXTERNAL | | | Segmented | performed at [facility], [address] | K/uL | LAB | | | Neutrophils | [address], | | | | | | [place] [address] | | | | + + + + + + | Absolute | 4.59 (H)Comment: Testing | 1.00 - 3.90 | EXTERNAL | | | Lymphocytes | performed at [facility], [address] | K/uL | LAB | | | | [address], | | | | | | [place] [address] | | | | + + + + + + | Absolute | 1.19 (H)Comment: Testing | 0.00 - 0.80 | EXTERNAL | | | Monocytes | performed at [facility], [address] | K/uL | LAB | | | | [address], | | | | | | [place] [address] | | | | + + + [...] | | | | | [place] [address] | | | | + + + + + + | RBC | NORMAL RBC MORPHComment: | | EXTERNAL | | | Morphology | Testing performed at | | LAB | | | | [facility], [address] | | | | | | [place] | | | | | | [address] | | | | + + + + + + | Differentia | 2+ GIANT PLTComment: | | EXTERNAL | | | l Comments | Testing performed at | | LAB | | | | [facility], [address] | | | | | | [place] | | | | | | [address] | | | | + + + [...] [place] | | | | | | [address] | | | | + + + [...] | | | (REF) | performed at [facility], [address] | | LAB | | | | [address], | | | | | | [place] [address] | | | | + + + [...] | | | | | [place] [address] | | | | + + + [...] EXTERNAL | | | | performed at [facility], [address] | | LAB | | | | [address], | | | | | | [place] [address] | | | | + + + [...] | | | | | [place] [address] | | | | + + + + + + | K | 3.0 (L)Comment: Testing | 3.5 - 4.9 | EXTERNAL | | | | performed at [facility], [address] | mmol/L | LAB | | | | [address] [address], | | | | | | [place] [address] | | | | + + + + + + | Cl | 104Comment: Testing | 99 - 109 mmol/L | EXTERNAL | | | | performed at [facility], [address] | | LAB | | | [address], | | | | | | [place] [address] | | | | + + + + + + | CO2 | 22 (L)Comment: Testing | 23 - 32 mmol/L | EXTERNAL | | | | performed at [facility], [address] | | LAB | | | | [address], | | | | | | [place] [address] | | | | + + + + + + | Anion Gap | 15Comment: Testing | 5 - 20 mmol/L | EXTERNAL | | | | performed at [facility], [address] | | LAB | | | | [address], | | | | | | [place] [address] | | | | + + + + + + | Glucose, | 82Comment: Testing | 65 - 99 mg/dL | EXTERNAL | | | Fasting | performed at [facility], [address] | | LAB | | | | [address], | | | | | | [place] [address] | | | | + + + + + + | BUN | 13Comment: Testing | 8 - 25 mg/dL | EXTERNAL | | | | performed at [facility], [address] | | LAB | | | | [address], | | | | | | [place] [address] | | | | + + + + + + | Creatinine | 1.01 (H)Comment: Testing | 0.50 - 1.00 | EXTERNAL | | | | performed at [facility], [address] | mg/dL | LAB | | | | [address], | | | | | | [place] [address] | | | | + + + + + + | BUN/Creatin | 13Comment: Testing | | EXTERNAL | | | ine Ratio | performed at [facility], [address] | | LAB | | | | [address], | | | | | | [place] [address] | | | | + + + + + + | Calcium | 7.7 (L)Comment: Testing | 8.5 - 10.5 | EXTERNAL | | | | performed at [facility], [address] | mg/dL | LAB | | | | [address], | | | | | | [place] [address] | | | | + + + + + + | Protein, | 7.1Comment: Testing | 6.3 - 8.2 g/dL | EXTERNAL | | | Total | performed at [facility], [address] | | LAB | | | | [address], | | | | | | [place] [address] | | | | + + + + + + | Albumin | 3.2 (L)Comment: Testing | 3.3 - 4.8 g/dL | EXTERNAL | | | | performed at [facility], [address] | | LAB | | | | [address], | | | | | | [place] [address] | | | | + + + + + + | Globulin | 3.9Comment: Testing | 1.3 - 4.9 g/dL | EXTERNAL | | | | performed at [facility], [address] | | LAB | | | | [address], | | | | | | [place] [address] | | | | + + + + + + | A/G Ratio | 0.8 (L)Comment: Testing | 1.0 - 2.4 | EXTERNAL | | | | performed at [facility], [address] | | LAB | | | | [address], | | | | | | [place] [address] | | | | + + + + + + | Bilirubin | 0.4Comment: Testing | 0.1 - 1.5 mg/dL | EXTERNAL | | | Total | performed at [facility], [address] | | LAB | | | | [address], | | | | | | [place] [address] | | | | + + + + + + | ALP, | 76Comment: Testing | 35 - 115 U/L | EXTERNAL | | | External | performed at [facility], [address] | | LAB | | | | [address], | | | | | | [place] [address] | | | | + + + + + + | AST | 26Comment: Testing | 10 - 45 U/L | EXTERNAL | | | | performed at [facility], [address] | | LAB | | | | [address], | | | | | | [place] [address] | | | | + + + + + + | ALT | 19Comment: Testing | 10 - 65 U/L | EXTERNAL | | | | performed at [facility], [address] | | LAB | | | | [address], | | | | | | [place] [address] | | | | + + + [...] Jose, | | | | | | [place] [address] | | | | + + + [...] LAB | | | | performed at [facility], [address] | | | | | | [facility], | | | | | | [place] [address] | | | | + + + [...] | | | Urine | performed at [facility], [address] | | LAB | | | Random | [address], | | | | | | [place] [address] | | | | + + + [...] | at [facility], [address] [place] [address] | | + + + + +---------+ [...] LA/Ao: 1.57 D-E Excursion: 2.11 cm E-F Wetzel: 0.09 m/s | | | EPSS: 0.48 [...] TV A Billy: 0.66 m/s TV Dec Wetzel: 4.36 m/s2 TV Dec | | | Time: 184.41 ms TV E Billy: 0.80 m/s TV E/A Ratio: 1.21 | | | Dermatologist Managing Partner: NEDRA Authenticated by: Gil Coronel MD Report [...] | Index (A-L): 40.51 ml/m2LAAs A2C: 24.56 [id number] A-L A2C: 76.32 mlLAESV MOD A2C: | | 73.52 mlLALs A2C: 6.71 cmLAAs A4C: 24.96 [id number] A-L A4C: 79.86 mlLAESV MOD A4C: | | 77.20 mlLALs A4C: 6.62 cmAo Diam: 2.73 cmAV Cusp: 2.27 cmLA Diam: 4.29 | | cmLA/Ao: 1.57D-E Excursion: 2.11 cmE-F Wetzel: 0.09 m/sEPSS: 0.48 cmHR: 77.41 | | BPMAV maxP.05 mmHgAV meanP.21 mmHgAV Vmax: 1.73 m/Sorin Vmean: 1.25 m/Sorin | | VTI: 34.68 cmAVA Vmax: 2.07 cm2AVA (VTI): 1.85 [id number] Dopp: 2.60 l/siok3WXBD | | Dopp: 5.05 l/minHR: 78.81 BPMLVOT [...] | m/sTV A Billy: 0.66 m/sTV Dec Wetzel: 4.36 m/s2TV Dec Time: 184.41 msTV E Billy: 0.80 | | m/sTV E/A Ratio: 1.21 Dermatologist Managing Partner: GDAuthenticated by: Gil Coronel [facility] | | Date/Time: 01-15-2015 09:12:05 IMPRESSION: 1. [...] | |D-E Excursion: 2.11 cm | |E-F Wetzel: 0.09 m/s | |EPSS: 0.48 cm | [...] A Billy: 0.66 m/s | |TV Dec Wetzel: 4.36 m/s2 | |TV Dec Time: 184.41 ms | |TV E Billy: 0.80 m/s | |TV E/A Ratio: 1.21 | | | |Dermatologist Managing Partner: NEDRA | |Authenticated by: Gil Coronel MD [...] | EXTERNAL LAB | | performed at [facility];[address];[place] [address] 027 NAP1 BI | | | 027 NAP1 BI PRESUMPTIVE NEGATIVE | | | Detection of 027 NAP1 BI strains of C. difficile is presumptive and | | | for epidemiological purposes and not intended to guide or monitor | | | treatment for C. difficile infections. Testing performed at [facility];[address] | | | [address];[place] [address] | | + + + + +---------+ [...] | | | | | [place] [address] | | | | + + + + + + | Complement | 19.4Comment: Testing | 10 - 40 mg/dL | EXTERNAL | | | Comp 4 | performed at [facility], [address] | | LAB | | | | [address], | | | | | | [place] [address] | | | | + + + [...] | | | | | | ACUTE TX Testing | | | | | | performed at [facility];[address] | | | | | | [address];[place], [place] | | | | | | [address] | | | | + + + [...] K/uL | LAB | | | | [facility];[address];[place] [address] | | | | + + + + + + | RED CELL | 3.27 (L)Comment: Testing | 3.70 - 5.10 | EXTERNAL | | | COUNT | performed at [facility];[address] | M/uL | LAB | | | | [address];[place] | | | | | | [address] | | | | + + + + + + | Hgb | 11.2 (L)Comment: Testing | 11.3 - 15.5 | EXTERNAL | | | | performed at [facility];[address] | g/dL | LAB | | | | [address];[place] | | | | | | [address] | | | | + + + + + + | Hematocrit, | 34.4Comment: Testing | 34.0 - 46.0 % | EXTERNAL | | | POC | performed at [facility];[address] | | LAB | | | | [address];[place] | | | | | | [address] | | | | + + + + + + | MCV | 105.2 (H)Comment: | 80.0 - 100.0 fl | EXTERNAL | | | | Testing performed at | | LAB | | | | [facility];[address];[place] [address] | | | | + + + + + + | MCH | 34.2 (H)Comment: Testing | 27.0 - 34.0 pg | EXTERNAL | | | | performed at [facility];[address] | | LAB | | | | [address];[place] | | | | | | [address] | | | | + + + + + + | MCHC | 32.5Comment: Testing | 32.0 - 35.5 | EXTERNAL | | | | performed at [facility];[address] | g/dL | LAB | | | | [address];[place] | | | | | | [address] | | | | + + + + + + | RDW-CV | 50.3Comment: Testing | 37 - 53 fl | EXTERNAL | | | | performed at [facility];[address] | | LAB | | | | [address];[place] | | | | | | [address] | | | | + + + + + + | Platelet | 160Comment: Testing | 150 - 400 K/uL | EXTERNAL | | | Count | performed at [facility];[address] | | LAB | | | Plasma | [address];[place] | | | | | | [address] | | | | + + + + + + | MPV | 11.1Comment: Testing | fl | EXTERNAL | | | | performed at [facility];[address] | | LAB | | | | [address];[place] | | | | | | [address] | | | | + + + + + + | Differentia | AUTOMATEDComment: | | EXTERNAL | | | l Type | Testing performed at | | LAB | | | | [facility];[address];[place] [address] | | | | + + + + + + | % Segmented | 50.65Comment: Testing | % | EXTERNAL | | | | performed at [facility];[address] | | LAB | | | Neutrophils | [address];[place] | | | | | | [address] | | | | + + + + + + | % | 37.06Comment: Testing | % | EXTERNAL | | | Lymphocytes | performed at [facility];[address] | | LAB | | | | [address];[place] | | | | | | [address] | | | | + + + + + + | % Monocytes | 9.60Comment: Testing | % | EXTERNAL | | | | performed at [facility];[address] | | LAB | | | | [address];[place] | | | | | | [address] | | | | + + + + + + | % | 1.30Comment: Testing | % | EXTERNAL | | | Eosinophils | performed at [facility];[address] | | LAB | | | | [address];[place] | | | | | | [address] | | | | + + + + + + | % Basophils | 1.39Comment: Testing | % | EXTERNAL | | | | performed at [facility];[address] | | LAB | | | | [address];[place] | | | | | | [address] | | | | + + + + + + | Absolute | 6.64Comment: Testing | 1.90 - 7.40 | EXTERNAL | | | Segmented | performed at [facility];[address] | K/uL | LAB | | | Neutrophils | [address];[place] | | | | | | [address] | | | | + + + + + + | Absolute | 4.86 (H)Comment: Testing | 1.00 - 3.90 | EXTERNAL | | | Lymphocytes | performed at [facility];[address] | K/uL | LAB | | | | [address];[place] | | | | | | [address] | | | | + + + + + + | Absolute | 1.26 (H)Comment: Testing | 0.00 - 0.80 | EXTERNAL | | | Monocytes | performed at [facility];[address] | K/uL | LAB | | | | [address];[place] | | | | | | [address] | | | | + + + + + + | Absolute | 0.17Comment: Testing | 0.00 - 0.50 | EXTERNAL | | | Eosinophils | performed at [facility];[address] | K/uL | LAB | | | | [address];[place] | | | | | | [address] | | | | + + + + + + | Absolute | 0.18 (H)Comment: Testing | 0.00 - 0.10 | EXTERNAL | | | Basophils | performed at [facility];[address] | K/uL | LAB | | | | [address];[place] | | | | | | [address] | | | | + + + [...] EXTERNAL | | | | performed at [facility];[address] | | LAB | | | | [address];[place], [place] | | | | | | [address] | | | | + + + [...] LAB | | | | performed at [facility];[address] | | | | | | [address];[place], [place] | | | | | | [address] | | | | + + + [...] EXTERNAL | | | | performed at [facility];[address] | mmol/L | LAB | | | | [address];[place] | | | | | | [address] | | | | + + + + + + | K | 3.7Comment: SLT | 3.5 - 4.9 | EXTERNAL | | | | HEMOLYSISTesting | mmol/L | LAB | | | | performed at [facility];[address] | | | | | | [address];[place] | | | | | | [address] | | | | + + + + + + | Cl | 110 (H)Comment: Testing | 99 - 109 mmol/L | EXTERNAL | | | | performed at [facility];[address] | | LAB | | | | [address];[place] | | | | | | [address] | | | | + + + + + + | CO2 | 24Comment: Testing | 23 - 32 mmol/L | EXTERNAL | | | | performed at [facility];[address] | | LAB | | | | [address];[place] | | | | | | [address] | | | | + + + + + + | Anion Gap | 13Comment: Testing | 5 - 20 mmol/L | EXTERNAL | | | | performed at [facility];[address] | | LAB | | | | [address];[place] | | | | | | [address] | | | | + + + + + + | Glucose, | 109 (H)Comment: Testing | 65 - 99 mg/dL | EXTERNAL | | | Fasting | performed at [facility];[address] | | LAB | | | | [address];[place] | | | | | | [address] | | | | + + + + + + | BUN | 24Comment: Testing | 8 - 25 mg/dL | EXTERNAL | | | | performed at [facility];[address] | | LAB | | | | [address];[place] | | | | | | [address] | | | | + + + + + + | Creatinine | 1.7 (H)Comment: Testing | 0.50 - 1.00 | EXTERNAL | | | | performed at [facility];[address] | mg/dL | LAB | | | | [address];[place] | | | | | | [address] | | | | + + + + + + | BUN/Creatin | 14Comment: Testing | | EXTERNAL | | | ine Ratio | performed at [facility];[address] | | LAB | | | | [address];[place] | | | | | | [address] | | | | + + + + + + | Calcium | 7.4 (L)Comment: Testing | 8.5 - 10.5 | EXTERNAL | | | | performed at [facility];[address] | mg/dL | LAB | | | | [address];[place] | | | | | | [address] | | | | + + + + + + | Protein, | 7.0Comment: Testing | 6.3 - 8.2 g/dL | EXTERNAL | | | Total | performed at [facility];[address] | | LAB | | | | [address];[place] | | | | | | [address] | | | | + + + + + + | Albumin | 2.6 (L)Comment: Testing | 3.3 - 4.8 g/dL | EXTERNAL | | | | performed at [facility];[address] | | LAB | | | | [address];[place] | | | | | | [address] | | | | + + + + + + | Globulin | 4.3Comment: Testing | 1.3 - 4.9 g/dL | EXTERNAL | | | | performed at [facility];[address] | | LAB | | | | [address];[place] | | | | | | [address] | | | | + + + + + + | A/G Ratio | 0.6 (L)Comment: Testing | 1.0 - 2.4 | EXTERNAL | | | | performed at [facility];[address] | | LAB | | | | [address];[place] | | | | | | [address] | | | | + + + + + + | Bilirubin | 0.4Comment: Testing | 0.1 - 1.5 mg/dL | EXTERNAL | | | Total | performed at [facility];[address] | | LAB | | | | [address];[place] | | | | | | [address] | | | | + + + + + + | ALP, | 92Comment: Testing | 35 - 115 U/L | EXTERNAL | | | External | performed at [facility];[address] | | LAB | | | | [address];[place] | | | | | | [address] | | | | + + + + + + | AST | 35Comment: SLT | 10 - 45 U/L | EXTERNAL | | | | HEMOLYSISTesting | | LAB | | | | performed at [facility];[address] | | | | | | [address];[place] | | | | | | [address] | | | | + + + + + + | ALT | 29Comment: Testing | 10 - 65 U/L | EXTERNAL | | | | performed at [facility];[address] | | LAB | | | | [address];[place] | | | | | | [address] | | | | + + + [...] | | | | | | at [facility];[address] [facility] | | | | | | Blvd;[place] [address] | | | | + + + [...] EXTERNAL | | | | performed at [facility];[address] | uIU/mL | LAB | | | | [address];[place], [place] | | | | | | [address] | | | | + + + [...] + + | Historically converted procedure from [facility] environment | EXTERNAL [...] | | | | | | ACUTE TX Testing | | | | | | performed at [facility];[address] | | | | | | [address];[place], [place] | | | | | | [address] | | | | + + + [...] GROWTH | | | Testing performed at [facility], | | | [address] [place] [address] | | + + + + +---------+ [...] | | study for comparison: None FINDINGS: [employer] 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 | | | degenerative [...] study | | for comparison: None FINDINGS: [employer] 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 degenerative changes of the spine, | | interventional changes and clips in the gallbladder fossa and below the left | | hemidiaphragm.. Lung bases demonstrate atelectasis and some chronic fibrotic appearing | | changes to the lower lung mñuoz-symmetric. No consolidation or effusion. Bones are | [...] NEGATIVE Testing | | | performed at [facility];[address] [place] [address];[place] [address] | | + + + + +---------+ [...] | | | | | | at [facility];[address] [place] [address] | | | | | | [facility];[place] [address] | | | | + + + [...] EXTERNAL | | | | performed at [facility];[address] | | LAB | | | | [address];[place], [place] | | | | | | [address] | | | | + + + [...] EXTERNAL | | | | performed at [facility] | | LAB | | | | [address];[place] | | | | | | [address] | | | | + + + [...] EXTERNAL | | | | performed at [facility];[address] | mmol/L | LAB | | | | [address];[place], [place] | | | | | | [address] | | | | + + + [...] | | | | | [place] [address] | | | | + + + [...] [place] | | | | | | [address] | | | | + + + [...] (500), | | | | | | general expeditor Shala Gramajo | | | | [...] EXTERNAL | | | | performed at [facility];[address] | | LAB | | | | [address];[place] | | | | | | [address] | | | | + + + [...] EXTERNAL | | | | performed at [facility];[address] | | LAB | | | | [facility], [place] | | | | | | [address] | | | | + + + [...] LAB | | | | performed at [facility] | | | | | | [address];[place], [place] | | | | | | [address] | | | | + + + [...] EXTERNAL | | | | performed at [facility];[address] | | LAB | | | | [address];[place], [place] | | | | | | [address] | | | | + + + [...] EXTERNAL | | | | performed at [facility];[address] | | LAB | | | | [address];[place] | | | | | | [address] | | | | + + + [...] K/uL | LAB | | | | [facility];[address] | | | | | | [address];[place] [address] | | | | + + + + + + | RED CELL | 4.17Comment: Testing | 3.70 - 5.10 | EXTERNAL | | | COUNT | performed at [facility];[address] | M/uL | LAB | | | | [address];[place] | | | | | | [address] | | | | + + + + + + | Hgb | 14.6Comment: Testing | 11.3 - 15.5 | EXTERNAL | | | | performed at [facility];[address] | g/dL | LAB | | | | [address];[place] | | | | | | [address] | | | | + + + + + + | Hematocrit, | 42.7Comment: Testing | 34.0 - 46.0 % | EXTERNAL | | | POC | performed at [facility];[address] | | LAB | | | | [address];[place] | | | | | | [address] | | | | + + + + + + | MCV | 102.3 (H)Comment: | 80.0 - 100.0 fl | EXTERNAL | | | | Testing performed at | | LAB | | | | [facility];[address] | | | | | | [address];[place] [address] | | | | + + + + + + | MCH | 35.0 (H)Comment: Testing | 27.0 - 34.0 pg | EXTERNAL | | | | performed at [facility];[address] | | LAB | | | | [address];[place] | | | | | | [address] | | | | + + + + + + | MCHC | 34.2Comment: Testing | 32.0 - 35.5 | EXTERNAL | | | | performed at [facility];888 | g/dL | LAB | | | | [address];[place] | | | | | | [address] | | | | + + + + + + | RDW-CV | 49.9Comment: Testing | 37 - 53 fl | EXTERNAL | | | | performed at [facility];[address] | | LAB | | | | [address];[place] | | | | | | [address] | | | | + + + + + + | Platelet | 209Comment: Testing | 150 - 400 K/uL | EXTERNAL | | | Count | performed at [facility];[address] | | LAB | | | Plasma | [address];[place] | | | | | | [address] | | | | + + + + + + | MPV | 11.1Comment: Testing | fl | EXTERNAL | | | | performed at [facility];[address] | | LAB | | | | [address];[place] | | | | | | [address] | | | | + + + + + + | RBC | 1+Comment: GIANT | | EXTERNAL | | | Morphology | PLATELETS1+MACROTesting | | LAB | | | | performed at [facility];[address] | | | | | | [address];[place] | | | | | | [address] | | | | | |Testing performed at [facility];[address];[place] [address] | | | | | | | | | | + + + + + + | Differentia | MANUALComment: Testing | | EXTERNAL | | | l Type | performed at [facility];[address] | | LAB | | | | [address];[place] | | | | | | [address] | | | | + + + + + + | Segmented | 58Comment: Testing | % | EXTERNAL | | | Neutrophils | performed at [facility];[address] | | LAB | | | Manual | [address];[place] | | | | | | [address] | | | | + + + + + + | Lymphocytes | 32Comment: Testing | % | EXTERNAL | | | Manual | performed at [facility];[address] | | LAB | | | | [address];[place] | | | | | | [address] | | | | + + + + + + | Monocytes | 9Comment: Testing | % | EXTERNAL | | | Manual | performed at [facility];[address] | | LAB | | | | [address];[place] | | | | | | [address] | | | | + + + + + + | Eosinophils | 1Comment: Testing | % | EXTERNAL | | | Manual | performed at [facility];[address] | | LAB | | | | [address];[place] | | | | | | [address] | | | | + + + + + + | Absolute | 9.39 (H)Comment: Testing | 1.90 - 7.40 | EXTERNAL | | | Neutrophils | performed at [facility];[address] | K/uL | LAB | | | | [address];[place] | | | | | | [address] | | | | + + + + + + | Absolute | 5.18 (H)Comment: Testing | 1.00 - 3.90 | EXTERNAL | | | Lymphocytes | performed at [facility];[address] | K/uL | LAB | | | | [address];[place] | | | | | | [address] | | | | + + + + + + | Absolute | 1.46 (H)Comment: Testing | 0.00 - 0.80 | EXTERNAL | | | Monocytes | performed at [facility];[address] | K/uL | LAB | | | | [address];[place] | | | | | | [address] | | | | + + + + + + | Absolute | 0.16Comment: Testing | 0.00 - 0.50 | EXTERNAL | | | Eosinophils | performed at [facility] [place];[address] | K/uL | LAB | | | | [address];[place] | | | | | | [address] | | | | + + + + + + | Na | 140Comment: Testing | 135 - 143 | EXTERNAL | | | | performed at [facility] [place] | mmol/L | LAB | | | | [address];[place] | | | | | | [address] | | | | + + + + + + | K | 2.8 (L)Comment: Testing | 3.5 - 4.9 | EXTERNAL | | | | performed at [facility] [place];[address] | mmol/L | LAB | | | | [address];[place] | | | | | | [address] | | | | + + + + + + | Cl | 100Comment: Testing | 99 - 109 mmol/L | EXTERNAL | | | | performed at [facility] [place] | | LAB | | | | [address];[place] | | | | | | [address] | | | | + + + + + + | CO2 | 29Comment: Testing | 23 - 32 mmol/L | EXTERNAL | | | | performed at [facility] [place];[address] | | LAB | | | | [address];[place] | | | | | | [address] | | | | + + + + + + | Anion Gap | 14Comment: Testing | 5 - 20 mmol/L | EXTERNAL | | | | performed at [facility] [place];[address] | | LAB | | | | [address];[place] | | | | | | [address] | | | | + + + + + + | Glucose, | 107 (H)Comment: Testing | 65 - 99 mg/dL | EXTERNAL | | | Fasting | performed at [facility] [place];[address] | | LAB | | | | [address];[place] | | | | | | [address] | | | | + + + + + + | BUN | 28 (H)Comment: Testing | 8 - 25 mg/dL | EXTERNAL | | | | performed at [facility] [place];[address] | | LAB | | | | [address];[place] | | | | | | [address] | | | | + + + + + + | Creatinine | 2.4 (H)Comment: Testing | 0.50 - 1.00 | EXTERNAL | | | | performed at [facility] [place];[address] | mg/dL | LAB | | | | [address];[place] | | | | | | [address] | | | | + + + + + + | BUN/Creatin | 12Comment: Testing | | EXTERNAL | | | ine Ratio | performed at [facility] [place];[address] | | LAB | | | | [address];[place] | | | | | | [address] | | | | + + + + + + | Calcium | 8.1 (L)Comment: Testing | 8.5 - 10.5 | EXTERNAL | | | | performed at [facility] [place];888 | mg/dL | LAB | | | | [address];[place] | | | | | | [address] | | | | + + + + + + | Protein, | 9.3 (H)Comment: Testing | 6.3 - 8.2 g/dL | EXTERNAL | | | Total | performed at [facility] [place];[address] | | LAB | | | | [address];[place] | | | | | | [address] | | | | + + + + + + | Albumin | 3.3Comment: Testing | 3.3 - 4.8 g/dL | EXTERNAL | | | | performed at [facility] [place];[address] | | LAB | | | | [address];[place] | | | | | | [address] | | | | + + + + + + | Globulin | 6.0 (H)Comment: Testing | 1.3 - 4.9 g/dL | EXTERNAL | | | | performed at [facility] [place];[address] | | LAB | | | | [address];[place] | | | | | | [address] | | | | + + + + + + | A/G Ratio | 0.5 (L)Comment: Testing | 1.0 - 2.4 | EXTERNAL | | | | performed at [facility] [place];[address] | | LAB | | | | [address];[place] | | | | | | [address] | | | | + + + + + + | Bilirubin | 0.4Comment: Testing | 0.1 - 1.5 mg/dL | EXTERNAL | | | Total | performed at [facility] [place];[address] | | LAB | | | | [address];[place] | | | | | | [address] | | | | + + + + + + | ALP, | 129 (H)Comment: Testing | 35 - 115 U/L | EXTERNAL | | | External | performed at [facility] [place];[address] | | LAB | | | | [address];[place] | | | | | | [address] | | | | + + + + + + | AST | 39Comment: Testing | 10 - 45 U/L | EXTERNAL | | | | performed at [facility] [facility] | | LAB | | | | [address];[place] | | | | | | [address] | | | | + + + + + + | ALT | 38Comment: Testing | 10 - 65 U/L | EXTERNAL | | | | performed at [facility] | | LAB | | | | [address];[place] | | | | | | [address] | | | | + + + [...] | | | | | | at [facility];[address] | | | | | | Aly;[place] [address] | | | | + + + + + + | CK, Total | 151Comment: Testing | 30 - 240 U/L | EXTERNAL | | | | performed at [facility];[address] | | LAB | | | | [address];[place] | | | | | | [address] | | | | + + + [...] | | | | | performed at [facility];[address] | | | | | | [address];[place] | | | | | | [address] | | | | + + + + + + | aPTT, | 26Comment: Testing | 23 - 32 seconds | EXTERNAL | | | Patient | performed at [facility];[address] | | LAB | | | | [address];[place] | | | | | | [address] | | | | + + + + + + | CK-MB | 3.9 (H)Comment: Testing | 0.5 - 3.6 ng/mL | EXTERNAL | | | | performed at [facility];[address] | | LAB | | | | [address];[place] | | | | | | [address] | | | | + + + [...] | | | | | | ACUTE TX Testing | | | | | | performed at [facility];[address] | | | | | | [facility];[place], [place] | | | | | | [address] | | | | + + [...]
--- OUTSIDE RECORDS SUMMARY | ~2019-05-29 | XMS | Encounter Summary ---
Demographics + + + | Address | [address] | | | [place] [address] | + + + | Home Phone | | + + + | Preferred Language | Unknown | + + + | Marital Status | Single | + + + | Nondenominational Affiliation | 1041 | + + + [...] Team Providers + +------+ + | Care Flat Folder Name | Role | Phone | + +------+ + | Rick Osorio DO | PCP | | + +------+ + Encounter Details +--------+ + + + + | Date | Type | Department | Care Team | Description | +--------+ + + + + | 06/04/ | Orders Only | [facility] | Emil Oliva MD | | | 2013 | | NEPHROLOGY [place] | [address] | | | | | [address] | [address] [place], [place] | | | | | [address] [place], [place] | [address] | | | | | [address] | | | | | | [phone] | | | +--------+ + + + [...] | | | LAB | | | [facility] | | | | | + +-------+ [...]
--- OUTSIDE RECORDS SUMMARY | ~2019-05-29 | XMS | Encounter Summary ---
Demographics + + + | Address | [address] | | | [place] [address] | + + + | Home Phone [...] Team Providers + +------+ + | Care Rock Drill Operator Name | Role | Phone | [...] | | | 2014 | | NEPRHOLOGY [place] | [address] [facility] | | | | | [address] | [address] [place], [place] | | | | | [address] [place], [place] | [address] | | | | | [address] | | | | | | [phone] | | | +--------+ + + + [...] | | | LAB | | | [place] | | | | | + + [...]
--- OUTSIDE RECORDS SUMMARY | ~2019-05-29 | XMS | Encounter Summary ---
Demographics + + + | Address | [address] | | | [place] [address] | + + + | Home Phone | | + + + | Preferred Language | Unknown | + + + | Marital Status | Unknown | + + + | Confucianism Affiliation | Unknown | + + + [...] Team Providers + +------+ + | Care Auto Brake Mechanic Name | Role | Phone | [...] | | | | | [place], | [place], [place] | | | | | [place] [address] | [address] | | | | | [phone] | | | +--------+ + + + [...]
--- OUTSIDE RECORDS SUMMARY | ~2019-05-29 | XMS | Encounter Summary ---
Demographics + + + | Address | [address] | | | [place] [address] | + + + | Home Phone [...] Team Providers + +------+ + | Care Multigraph Operator Name | Role | Phone | + +------+ + | Yovani Santana MD | PCP | | + +------+ + Encounter Details +--------+ + + + + | Date | Type | Department | Care Team | Description | +--------+ + + + + | 05/10/ | Hospital | [facility] | Gary Melendez, | Hypoxemia; | | 2014 | Encounter | MED CTR XRAY [address] | MD [address] | Restrictive lung | | | | [place] | [place], [place] | disease | | | | [place] [address] | [address] | | | | | [phone] | | | | | | | [...] + | MISCELLANEOUS LAB | | | [phone] | + +---------+ + + | MISCELANIOUS LAB | | | [phone] | + +---------+ + + documented in this encounter Visit Diagnoses + + | Diagnosis | + + | Hypoxemia | + + | Restrictive lung disease Other diseases of lung, not elsewhere classified | + + documented in this encounter"
--- OUTSIDE RECORDS SUMMARY | ~2019-05-29 | XMS | Clinical Summary ---
Demographics + + + | Address | [address] | | | [place] [address] | + + + | Home Phone | | + + + | Preferred Language | Unknown | + + + | Marital Status | | + + + | Baptist Affiliation | 1041 | + + + | Race | Unknown | + + + | Ethnic Group | Unknown | + + + Author + + + | Author | [facility] (Historical as of | | | 01-06-19) | + + + | Organization | [facility] (Historical as of | | | 01-06-19) [...] Team Providers + +------+ + | Care Marine Driller Name | Role | Phone | + +------+ + | iRck Osorio DO | PP | | + [...] | MA - GENERIC | MA-GEN | [id number] | Medica | | | | | [...] | | | | | | | [address] | + +--------+ +--------+ + +
--- OUTSIDE RECORDS SUMMARY | ~2019-05-29 | XMS | Encounter Summary ---
Demographics + + + | Address | [address] | | | [place] [address] | + + + | Home Phone | | + + + | Preferred Language | Unknown | + + + | Marital Status | Single | + + + | Protestant Affiliation | 1041 | + + + [...] Providers + +------+ + | Care Director Of Quantitative Research Name | Role | Phone | + [...] [address] | Dx) | | | | [place], | [place], [place] | | | | | [place] [address] | [address] | | | | | [phone] | | | +--------+ + + + [...]
--- OUTSIDE RECORDS SUMMARY | ~2019-05-29 | XMS | Encounter Summary ---
Demographics + + + | Address | [address] | | | [place] [address] | + + + | Home Phone [...] Team Providers + +------+ + | Care Professional System Administrator Name | Role | Phone | [...] + + | 03/26/ | Office | [facility] | Gary Melendez, | Hypoxemia (Primary | | 2014 | Visit | PULMONARY [address] | MD [address] | Dx); Kyphosis | | | | [place], | [place], [place] | deformity of spine; | | | | [place] [address] | [address] | Restrictive lung | | | | [phone] | | disease | +--------+---------+ + + [...] + | MISCELLANEOUS LAB | | | [phone] | + +---------+ + + | MISCELANIOUS LAB | | | [phone] | + +---------+ + + documented in this encounter Visit Diagnoses + + | Diagnosis | + + | Hypoxemia - Primary | + + | 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
--- OUTSIDE RECORDS SUMMARY | ~2019-05-29 | XMS | Encounter Summary ---
Demographics + + + | Address | [address] | | | [place] [address] | + + + | Home Phone [...] Team Providers + +------+ + | Care Design Printing Machine Setter Name | Role | Phone | + [...] [place], [place] | | | | | [place], [place] | [address] | | | | | [address] | | | | | | [phone] | | | +--------+ + + + [...] 0.03 m/s | | | MV Dec Faulkner: 9.74 m/s2 MV DecT: 91.63 ms MV E Billy: 0.89 | | | m/s MV E/A Ratio: 26.03 MV PHT: 26.57 ms MVA By PHT: 8.27 | | | cm2 Septal e': 0.06 m/s Septal E/e': 12.90 Lateral e': | | | 0.09 m/s Lateral E/e': 8.96 RAP: 5 mmHg RVSP: 17.59 mmHg | | | TR maxP.59 mmHg TR Vmax: 1.77 m/s Teacher Private: NAIF | | | Authenticated by: Conor [place] Report Date/Time: -- | | | [id number]:51:12 | | + + + + + [...] cmLVPWd: 1.14 cmLVOT | | Area: 3.33 [id number] Diam: 2.06 cm%FS: 26.43 %EF(Teich): 51.67 %ESV(Teich): [...] (A-L): | | 45.82 ml/m2LAAs A2C: 22.15 [id number] A-L A2C: 71.25 mlLALs A2C: 5.84 cmLAAs A4C: | | 28.64 [id number] A-L A4C: 104.24 mlLALs A4C: 6.68 cmRAAs: 14.65 [id number] A-L: | | 33.90 mlRAESV MOD: 34.21 mlRALs: 5.37 cmAV maxP.81 mmHgAV meanP.70 | | mmHgAV Vmax: 1.30 m/Sorin Vmean: 0.90 m/Sorin VTI: 24.74 cmAVA Vmax: 2.36 cm2AVA | | (VTI): 2.24 [id number] maxP.41 mmHgLVOT meanP.88 mmHgLVSI Dopp: 27.63 | | ml/m2LVSV Dopp: 55.54 mlLVOT Vmax: 0.92 m/sLVOT Vmean: 0.64 m/sLVOT VTI: 16.66 | | cmMV A Billy: 0.03 m/sMV Dec Faulkner: 9.74 m/s2MV DecT: 91.63 msMV E Billy: 0.89 m/sMV | | E/A Ratio: 26.03MV PHT: 26.57 msMVA By PHT: 8.27 gr0Koniva e': 0.06 m/sSeptal | | E/e': 12.90Lateral e': 0.09 m/sLateral E/e': 8.96RAP: 5 mmHgRVSP: 17.59 mmHgTR | | maxP.59 mmHgTR Vmax: 1.77 m/s Teacher Private: DHAuthenticated by: Conor | | [facility] Date/Time: -- [id number]:12 IMPRESSION: 1. The left ventricle is | [...] A Billy: 0.03 m/s | |MV Dec Faulkner: 9.74 m/s2 | |MV DecT: 91.63 ms [...] |TR Vmax: 1.77 m/s | | | |Teacher Private: NAIF | |Authenticated by: Conor Garcia | |Report Date/Time: -- [id number]:51:12 | | | |IMPRESSION: | |1. The [...]
--- OUTSIDE RECORDS SUMMARY | ~2019-05-29 | XMS | Encounter Summary ---
Demographics + + + | Address | [address] | | | [place] [address] | + + + | Home Phone [...] Team Providers + +------+ + | Care Dairy Husbandry Worker Name | Role | Phone | + +------+ + | Yovani Santana MD | PCP | | + +------+ + Encounter Details +--------+ + + + + | Date | Type | Department | Care Team | Description | +--------+ + + + + | 01/28/ | Hospital | [facility] | Jacob Smith, | | | 2014 - | Encounter | [facility] | MD Carmelo SANTAMARIA | | | | | CARE FLOOR [address] | [place] [address] | | | 02/03/ | | TIERA SANTAMARIA | [phone] | | | 2014 | | [place], [place] | | | | | | [address] | | | | | | [phone] | | | +--------+ + + + [...] Date of Service: 02/03/15 1029 Status: Signed Nuclear Technologist: Jose Maria Espinal MD (Physician) Related Notes: Original Note by Jose Maria Espinal MD (Physician) filed at 02/04/15 1345 [facility]: Hospitalist Physician Discharge Summary Patient ID: Cole Enrst 1945 69 y.o. Admit date: 01/28/2015 Discharge [...] as a transfer from [facility] in [place] for fever of 101 and altered mental s tatus. She was discharged from [facility] on 01/09/15 for elevated troponin [...] She was brought back in to [facility] for fever and confusion. UA and CXR reportedly negative there. SBP was 90s. She had formed stool there but en route here she did develop watery stool, tested C diff + here.".......per admitting MD/Dr. Smith . The patient was admitted to [facility] with a diagnosis of Clostridium difficile infection while she was being transferred from [facility] with fever and altered mental status. Th e patient has underlying immunosuppression secondary to a remote history of liver transplant on chronic immunosuppressive therapy with azathioprine and cyclosporin. Following her trans fletcher to [facility], she was started on oral [...] medically stable for discharge to return to [facility] in [place] on Jan. ADDITIONAL ISSUES 1. Recurrent atelectasis. 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 We sent some of them to a specific pharmacy. Go t o these places to get your medications. [facility] - [place], [place] - [address] - lactobacillus granules [address] [place] [address] You may get the following medications from [...] 02/03/151608 Date of Service: 02/03/151608 Status: Signed Nuclear Technologist: Pedro Partida RN (Registered Nurse) 02/03/151602 Discharge Planning Evaluation Admitting Diagnosis Elevated temp, CKD, post liver transplant Readmission Yes-within 14 days Reason for readmission Fever, confusion, C.dif Last discharge disposition Long Term Facility Needs met at last discharge Yes Picked up discharge Rx medications Yes Started prescribed DC meds Yes Understood discharge instructions Yes Assistance available Yes Concerns for meeting needs No Caregiver after Discharge Yes Mental Status Oriented Anticipated Disposition Facility Type halfway facility Long Term Facility Other (comment) ([place] in [place]) Disposition: Return to [facility] Transportation: Facility van to transport. All [...] 02/03/15899 Date of Service: 02/02/151521 Status: Signed Nuclear Technologist: Jose Maria Espinal MD (Physician) Related Notes: Original Note by Jose Maria Espinal MD (Physician) filed at 02/02/15 1950 [facility]: Hospitalist Progress Note Pt: Cole Ernst AGE/SEX: 69 y.o. female : 1945 ROOM: [facility] History of Present Illness: " The patient is a 69 y.o. female with significant past medical history of liver transplant int he 90s on cyclosporine and imuran, chronic pain on methadone, CKD st 3, chronic home O2 of unclear etiology from 2-4 lp, Presented as a transfer from [facility] in [place] for fever of 101 and altered mental s tatus. She was discharged from [facility] on 01/09/15 for elevated troponin [...] She was brought back in to [facility] for fever and confusion. UA [...] sulfate. Case management [facility] [place] [facility] the patient in the next [...] contrast. 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 changes of [...] LA/Ao: 1.57 D-E Excursion: 2.11 cm E-F Lea: 0.09 m/s EPSS: 0.48 cm HR: 77.41 [...] TV A Billy: 0.66 m/s TV Dec Lea: 4.36 m/s2 TV Dec Time: 184.41 ms TV E Billy: 0.80 m/s TV E/A Rat io: 1.21 Creative Specialist: NEDRA Authenticated by: Gil Martines MD [...] Procedure: COLONOSCOPY; Surgeon: Juan Ramey MD; Location: [facility] ENDOSCOPY; Service: Gastroenterology; Laterality: N/A; [...] by Jose Maria Espinal MD at 02/01/15 3002 Author: Jose Maria Espinal MD Service: Hospitalist Author Type: Physician Filed: 02/02/15 1525 Date of Service: 02/01/151716 Status: Signed Nuclear Technologist: Jose Maria Espinal MD (Physician) Related Notes: Original Note by Jose Maria Espinal MD (Physician) filed at 02/02/15 1302 [facility]: Hospitalist Progress Note Pt: Cole Ernst AGE/SEX: 69 y.o. female : 1945 ROOM: [address] [place] [address] History of Present Illness: " The patient is a 69 y.o. female with significant past medical history of liver transplant int he 90s on cyclosporine and imuran, chronic pain on methadone, CKD st 3, chronic home O2 of unclear etiology from 2-4 lpm, Presented as a transfer from [facility] for fever of 101 and altered mental s tatus. She was discharged from [facility] on 01/09/15 for elevated troponin [...] She was brought back in to [facility] for fever and confusion. UA [...] establishing readiness of the faci lity in [place] to accept the patient in the next [...] contrast. 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 3. Eaxgc-hh-xpgyepf liver disease, stage III. Creatinine level has [...] 01/31/152124 Date of Service: 01/31/151513 Status: Signed Nuclear Technologist: Jose Maria Espinal MD (Physician) Related Notes: Original Note by Jose Maria Espinal MD (Physician) filed at 01/31/15 1523 [facility]: Hospitalist Progress Note Pt: Cole Ernst AGE/SEX: 69 y.o. female : 1945 ROOM: [address] [place] [address] History of Present Illness: " The patient is a 69 y.o. female with significant past medical history of liver transplant int he 90s on cyclosporine and imuran, chronic pain on methadone, CKD st 3, chronic home O2 of unclear etiology from 2-4 lpm, Presented as a transfer from [facility] in [place] for fever of 101 and altered mental s tatus. She was discharged from [facility] on 01/09/15 for elevated troponin [...] She was brought back in to [facility] for fever and confusion. UA [...] contrast. 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 changes of [...] LA/Ao: 1.57 D-E Excursion: 2.11 cm E-F Lea: 0.09 m/s EPSS: 0.48 cm HR: 77.41 [...] TV A Billy: 0.66 m/s TV Dec Lea: 4.36 m/s2 TV Dec Time: 184.41 ms TV E Billy: 0.80 m/s TV E/A Rat io: 1.21 Creative Specialist: NEDRA Authenticated by: Gil Martines MD [...] Procedure: COLONOSCOPY; Surgeon: Juan Ramey MD; Location: [facility] ENDOSCOPY; Service: Gastroenterology; Laterality: N/A; [...] 1313 Date of Service: 01/31/151312 Status: Signed Nuclear Technologist: Catina Moon () Attempted visit. Pt sitting in chair sleeping. No family present. Chaplain Catina Moon onver alessandro Transaction, Provider Unknown - 01/31/2015 11:35 AM PDT Therapy Progress Note by Mahi Yanes PTA at 01/31/15 1135 Author: Mahi Yanes PTA Service: (none) Author Type: Fitter Type Bar And Segment Filed: 01/31/15 1410 Date of Service: 01/31/151134 Status: Signed Nuclear Technologist: Mahi Yanes PTA (Fitter Type Bar And Segment) 01/31/15 1135 PT Last Visit PT Received [...] PDT Case Management by Gregg Keene MS, FASHION ARTIST at 01/31/15 1007 Author: Gregg Keene, MS, FASHION ARTIST Service: (none) Author Type: Expansion Joint Builder Filed: 01/31/15 1546 Date of Service: 01/31/15 1007 Status: Addendum Nuclear Technologist: Gregg Keene , FASHION ARTIST (Expansion Joint Builder) Related Notes: Original Note by Gregg Yecenia MS, FASHION ARTIST (Expansion Joint Builder) filed at 01/31/15 1007 Discharge planning - CM faxed updated clinical to Gi at [facility]. Discharge form s on front of chart for MD signature. CM notified Gi of anticipated d/c this weekend. onver alessandro Transaction, Provider Unknown - 01/30/2015 5:05 PM PDT Therapy Progress Note by Gail Vernon PT at 01/30/15 1705 Author: Gail Vernon PT Service: (none) Author Type: Physical Therapist Filed: 01/30/15 0962 Date of Service: 01/30/15 1705 Status: Signed Nuclear Technologist: Gail Vernon PT (Physical Therapist) 01/30/15 170 [...] Date of Service: 01/30/15 1414 Status: Signed Nuclear Technologist: Jose Maria Espinal MD (Physician) Related Notes: Original Note by Jose Maria Espinal MD (Physician) filed at 01/30/15 8027 [facility]: Hospitalist Progress Note Pt: [...] as a transfer from [facility] in [place] for fever of 101 and altered mental s tatus. She was discharged from [facility] on 01/09/15 for elevated troponin [...] She was brought back in to [facility] for fever and confusion. UA [...] contrast. 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 changes of [...] LA/Ao: 1.57 D-E Excursion: 2.11 cm E-F Lea: 0.09 m/s EPSS: 0.48 cm HR: 77.41 [...] TV A Billy: 0.66 m/s TV Dec Lea: 4.36 m/s2 TV Dec Time: 184.41 ms TV E Billy: 0.80 m/s TV E/A Rat io: 1.21 Creative Specialist: NEDRA Authenticated by: Gil Martines MD [...] Procedure: COLONOSCOPY; Surgeon: Juan Ramey MD; Location: [facility] ENDOSCOPY; Service: Gastroenterology; Laterality: N/A; [...] Patient's live r functions remain normal. 3. Gwsvw-pp-zjfrlel kidney disease stage III. Creatinine level has [...] by Jose Maria Espinal MD at 01/29/15 494 Author: Jose Maria Espinal MD Service: Hospitalist Author Type: Physician Filed: 01/30/15 0957 Date of Service: 01/29/151650 Status: Signed Nuclear Technologist: Jose Maria Espinal MD (Physician) Related Notes: Original Note by Jose Maria Espinal MD (Physician) filed at 01/29/152024 [facility]: Hospitalist Progress Note Pt: Cole Ernst AGE/SEX: 69 y.o. female : 1945 ROOM: [address] [place] [address] History of Present Illness: " The patient is a 69 y.o. female with significant past medical history of liver transplant int he 90s on cyclosporine and imuran, chronic pain on methadone, CKD st 3, chronic home O2 of unclear etiology from 2-4 lpm, Presented as a transfer from [facility] in [place] for fever of 101 and altered mental s tatus. She was discharged from [facility] on 01/09/15 for elevated troponin [...] She was brought back in to [facility] for fever and confusion. UA [...] contrast. 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 changes of [...] LA/Ao: 1.57 D-E Excursion: 2.11 cm E-F Lea: 0.09 m/s EPSS: 0.48 cm HR: 77.41 [...] TV A Billy: 0.66 m/s TV Dec Lea: 4.36 m/s2 TV Dec Time: 184.41 ms TV E Billy: 0.80 m/s TV E/A Rat io: 1.21 Creative Specialist: NEDRA Authenticated by: Gil Martines MD [...] Procedure: COLONOSCOPY; Surgeon: Juan Ramey MD; Location: [facility] ENDOSCOPY; Service: Gastroenterology; Laterality: N/A; [...] Date of Service: 01/29/15 1525 Status: Signed Nuclear Technologist: Pedro Partida RN (Registered Nurse) 01/29/15 1521 Discharge Planning Evaluation Admitting Diagnosis Intestinal infection C.dif. Readmission Yes-within 14 days Reason for readmission Intestinal infection C.dif Last discharge disposition Long Term Facility Needs met at last discharge Yes Picked up discharge Rx medications Not applicable Followed up with primary or specialty provider Yes Understood discharge instructions Yes Assistance available Yes Living Arrangements Alone Support Systems Friends/neighbors Type of Residence Private residence House type Apartment Independent with ADL's Yes Independent with Mobility Yes Caregiver after Discharge Yes Mental Status Oriented Anticipated Disposition Facility Type halfway facility Long Term Facility Other (comment) ([place] in [place]) Met with: patient and discussed discharge planning, Pt is a 69 y.o., female who was discharged from [facility] 2 wee ks ago to [facility]. Her sister, Renée Tipton is emergency contact, . Patient's PCP is: [facility] DE JESUS Patient's insurance: Medicare Coverage concerns: Medication coverage/concerns: Community resources utilized / needed: Assistance in transportation: Identification of any specific education / training: Barriers to Discharge / Alternative housing needed: Anticipated DCP: Return to [facility] PEDRO PARTIDA RN onver alessandro Nicole Provider Unknown - 01/29/2015 8:55 AM PDT Therapy Progress Note by Barbara Edmond PT at 01/29/15 0855 Author: Barbara Edmond PT Service: (none) Author Type: Physical Therapist Filed: 01/29/1533 Date of Service: 01/29/15854 Status: Signed Nuclear Technologist: Barbara Edmnod PT (Physical Therapist) 01/29/15 08 PT Last [...] to SNF after current hospital stay. Just PUBLIC RELATIONS REPRESENTATIVE Júnior ADL's and Júnior mobility using 4ww for short room distances, had been using manual w/c in hallway at SNF. Reports a few falls at facility ov er last week, otherwise denies falls over last 6mos. Was getting therapies at facility. Prior Function Level of Hines Modified independent with ADLs;Modified independent with functional [...] Barriers to Discharge Physical Deficits Impacting Functional Hines;Self-care Deficit s Impacting Functional Hines;Equipment Needs (see comment);Pain Recommendation Comments Needs return [...] Barriers to Discharge Physical Deficits Impacting Functional Hines;Self-care Deficit s Impacting Functional Hines;Equipment Needs (see comment);Pain Recommendation Comments Needs return [...] 01/29/15831 Date of Service: 01/29/15830 Status: Signed Nuclear Technologist: Malick Ramos RN (Registered Nurse) Infection Prevention Note: Patient stool is positive for C. Diff. Contact Enteric Precautions are required until furt her notice. Thank you. Malick Ramos RN, BA, Precision Honing Machine Operator onver alessandro Transaction, Provider Unknown - 01/28/2015 3:23 PM PDT Progress Notes by Jimena Duarte RPH at 01/28/151522 Author: Jimena Duarte RPH Service: (none) Author Type: Pharmacist Filed: 01/28/15 152 Date of Service: 01/28/151522 Status: Signed Nuclear Technologist: Jimena Duarte RPH (Pharmacist) Zosyn Extended Infusion Initial Consult-Per Dr. Jacob Ernst 69 y.o. female CrCl cannot be calculated (Unknown ideal weight.). NEUTROPHILS ABS Date Value Ref Range Status 01/18/2015 3.26 1.90 - 7.40 K/uL Final Comment: Testing performed at [facility] [place], [address] [place] [address] CREATININE Date Value Ref Range Status 01/19/2015 0.96 0.50 - 1.00 mg/dL Final Comment: Testing performed at [facility], [address] [place] [address] Zosyn extended Infusion loading and maintenance dose guidelines Loading Dose 4.5 g IV Over 30 minutes CrCl >20 ml/min 3.375 g IV Q 8 hours Over 4 hours CrCl 10-20 ml/min 3.375 g IV Q 12 hours Over 4 hours CrCl <10, HD, PD Follow [facility] Dosage Adjustments in Renal Dysfunction [...] 01/28/151515 Date of Service: 01/28/151515 Status: Signed Nuclear Technologist: Jimena Duarte RPH (Pharmacist) Renal Dosing Monitoring: [...] per renal function. 01/28/2015 3:14 PM Pharmacist: Jimean Duarte docume nted in this encounter Plan [...] | | | | | [place] [address] | | | | + + + + + + | RED CELL | 2.72 (L)Comment: Testing | 3.70 - 5.10 | EXTERNAL | | | COUNT | performed at [facility], [address] | M/uL | LAB | | | | [address], | | | | | | [place] [address] | | | | + + + + + + | Hgb | 9.6 (L)Comment: Testing | 11.3 - 15.5 | EXTERNAL | | | | performed at [facility], [address] | g/dL | LAB | | | | [address], | | | | | | [place] [address] | | | | + + + + + + | Hematocrit, | 28.8 (L)Comment: Testing | 34.0 - 46.0 % | EXTERNAL | | | POC | performed at [facility], [address] | | LAB | | | | [address], | | | | | | [place] [address] | | | | + + + + + + | MCV | 106.0 (H)Comment: | 80.0 - 100.0 fl | EXTERNAL | | | | Testing performed at | | LAB | | | | [facility], [address] | | | | | | [place] | | | | | | [address] | | | | + + + + + + | MCH | 35.2 (H)Comment: Testing | 27.0 - 34.0 pg | EXTERNAL | | | | performed at [facility], [address] | | LAB | | | | [address], | | | | | | [place] [address] | | | | + + + + + + | MCHC | 33.2Comment: Testing | 32.0 - 35.5 | EXTERNAL | | | | performed at [facility], [address] | g/dL | LAB | | | | [address], | | | | | | [place] [address] | | | | + + + + + + | RDW-CV | 53.4 (H)Comment: Testing | 37 - 53 fl | EXTERNAL | | | | performed at [facility], [address] | | LAB | | | | [address], | | | | | | [place] [address] | | | | + + + + + + | Platelet | 216Comment: Testing | 150 - 400 K/uL | EXTERNAL | | | Count | performed at [facility], [address] | | LAB | | | Plasma | [address], | | | | | | [place] [address] | | | | + + + + + + | MPV | 10.5Comment: Testing | fl | EXTERNAL | | | | performed at [facility], [address] | | LAB | | | | [address], | | | | | | [place], [place] [address] | | | | + + + + + + | Differentia | MANUALComment: Testing | | EXTERNAL | | | l Type | performed at [facility], [address] | | LAB | | | | [address], | | | | | | [place], [place] [address] | | | | + + + + + + | Segmented | 35Comment: Testing | % | EXTERNAL | | | Neutrophils | performed at [facility], [address] | | LAB | | | Manual | [address], | | | | | | [place] [address] | | | | + + + + + + | % Bands | 1Comment: Testing | % | EXTERNAL | | | | performed at [facility], [address] | | LAB | | | | [address], | | | | | | [place] [address] | | | | + + + + + + | Lymphocytes | 44Comment: Testing | % | EXTERNAL | | | Manual | performed at [facility], [address] | | LAB | | | | [address], | | | | | | [place] [address] | | | | + + + + + + | Monocytes | 12Comment: Testing | % | EXTERNAL | | | Manual | performed at [facility], [address] | | LAB | | | | [address], | | | | | | [place] [address] | | | | + + + + + + | Eosinophils | 8Comment: Testing | % | EXTERNAL | | | Manual | performed at [facility], [address] | | LAB | | | | [address], | | | | | | [place] [address] | | | | + + + + + + | Absolute | 3.08Comment: Testing | 1.90 - 7.40 | EXTERNAL | | | Neutrophils | performed at [facility], [address] | K/uL | LAB | | | | [address], | | | | | | [place] [address] | | | | + + + + + + | Bands | 0.09Comment: Testing | 0.00 - 0.20 | EXTERNAL | | | Manual | performed at [facility], [address] | K/uL | LAB | | | | [address], | | | | | | [place] [address] | | | | + + + + + + | Absolute | 3.88Comment: Testing | 1.00 - 3.90 | EXTERNAL | | | Lymphocytes | performed at [facility], [address] | K/uL | LAB | | | | [address], | | | | | | [place] [address] | | | | + + + + + + | Absolute | 1.06 (H)Comment: Testing | 0.00 - 0.80 | EXTERNAL | | | Monocytes | performed at [facility], [address] | K/uL | LAB | | | | [address], | | | | | | [place] [address] | | | | + + + + + + | Absolute | 0.70 (H)Comment: Testing | 0.00 - 0.50 | EXTERNAL | | | Eosinophils | performed at [facility], [address] | K/uL | LAB | | | | [address], | | | | | | [place] [address] | | | | + + + + + + | RBC | NORMAL PLT MORPHComment: | | EXTERNAL | | | Morphology | NORMAL RBC MORPHTesting | | LAB | | | | performed at [facility], [address] | | | | | | [address], | | | | | | [place] [address] | | | | + + + [...] | performed at [facility], [address] | | LAB | | [...] | performed at [facility], [address] | | LAB | | | | [address], | | | | | | [place] [address] | | | | + + + [...] | | | | | [place] [address] | | | | + + + + + + | K | 4.0Comment: Testing | 3.5 - 4.9 | EXTERNAL | | | | performed at [facility], [address] | mmol/L | LAB | | | | [address] [place], | | | | | | [place] [address] | | | | + + + + + + | Cl | 102Comment: Testing | 99 - 109 mmol/L | EXTERNAL | | | | performed at [facility], [address] | | LAB | | | | [address] [place], | | | | | | [place] [address] | | | | + + + [...] | | | | | [place] [address] | | | | + + + + + + | Glucose, | 105 (H)Comment: Testing | 65 - 99 mg/dL | EXTERNAL | | | Fasting | performed at [facility], [address] | | LAB | | | | [address], | | | | | | [place] [address] | | | | + + + + + + | BUN | 9Comment: Testing | 8 - 25 mg/dL | EXTERNAL | | | | performed at [facility], [address] | | LAB | | | | [address], | | | | | | [place] [address] | | | | + + + + + + | Creatinine | 0.82Comment: Testing | 0.50 - 1.00 | EXTERNAL | | | | performed at [facility], [address] | mg/dL | LAB | | | | [address], | | | | | | [place] [address] | | | | + + + + + + | BUN/Creatin | 11Comment: Testing | | EXTERNAL | | | ine Ratio | performed at [facility], [address] | | LAB | | | | [address], | | | | | | [place] [address] | | | | + + + + + + | Calcium | 8.5Comment: Testing | 8.5 - 10.5 | EXTERNAL | | | | performed at [facility], [address] | mg/dL | LAB | | | | [address], | | | | | | [place] [address] | | | | + + + + + + | Protein, | 6.3Comment: Testing | 6.3 - 8.2 g/dL | EXTERNAL | | | Total | performed at [facility], [address] | | LAB | | | | [address], | | | | | | [place] [address] | | | | + + + + + + | Albumin | 2.8 (L)Comment: Testing | 3.3 - 4.8 g/dL | EXTERNAL | | | | performed at [facility], [address] | | LAB | | | | [address], | | | | | | [place] [address] | | | | + + + + + + | Globulin | 3.5Comment: Testing | 1.3 - 4.9 g/dL | EXTERNAL | | | | performed at [facility], [address] | | LAB | | | | [address], | | | | | | [place] [address] | | | | + + + [...] | | | | | [place] [address] | | | | + + + + + + | ALP, | 102Comment: Testing | 35 - 115 U/L | EXTERNAL | | | External | performed at [facility], [address] | | LAB | | | | [address], | | | | | | [place] [address] | | | | + + + + + + | AST | 53 (H)Comment: Testing | 10 - 45 U/L | EXTERNAL | | | | performed at [facility], [address] | | LAB | | | | [address], | | | | | | [place] [address] | | | | + + + + + + | ALT | 21Comment: Testing | 10 - 65 U/L | EXTERNAL | | | | performed at [facility], [address] | | LAB | | | | [address], | | | | | | [place] [address] | | | | + + + [...] | | at [facility], [address] | | | | | | [address] [facility], | | | | | | [place] [address] | | | | + + + [...] EXTERNAL | | | | performed at [facility];[address] | mmol/L | LAB | | | | [address];[place], [place] | | | | | | [address] | | | | + + + [...] EXTERNAL | | | | performed at [facility];[address] | | LAB | | | | Tiera Santamaria;[place] | | | | | | [address] | | | | + + [...] | performed at [facility], [address] | K/uL | LAB | | | | [address], | | | | | | [place] [address] | | | | + + + + + + | RED CELL | 2.78 (L)Comment: Testing | 3.70 - 5.10 | EXTERNAL | | | COUNT | performed at [facility], [address] | M/uL | LAB | | | | [address], | | | | | | [place] [address] | | | | + + + + + + | Hgb | 9.7 (L)Comment: Testing | 11.3 - 15.5 | EXTERNAL | | | | performed at [facility], [address] | g/dL | LAB | | | | [address], | | | | | | [place] [address] | | | | + + + + + + | Hematocrit, | 29.6 (L)Comment: Testing | 34.0 - 46.0 % | EXTERNAL | | | POC | performed at [facility], [address] | | LAB | | | | [address], | | | | | | [place] [address] | | | | + + + + + + | MCV | 106.3 (H)Comment: | 80.0 - 100.0 fl | EXTERNAL | | | | Testing performed at | | LAB | | | | [facility], [address] [facility] [address] | | | | | | [place] | | | | | | [address] | | | | + + + + + + | MCH | 34.8 (H)Comment: Testing | 27.0 - 34.0 pg | EXTERNAL | | | | performed at [facility], [address] | | LAB | | | | [address], | | | | | | [place] [address] | | | | + + + + + + | MCHC | 32.8Comment: Testing | 32.0 - 35.5 | EXTERNAL | | | | performed at [facility], [address] | g/dL | LAB | | | | [address], | | | | | | [place] [address] | | | | + + + + + + | RDW-CV | 53.8 (H)Comment: Testing | 37 - 53 fl | EXTERNAL | | | | performed at [facility], [address] | | LAB | | | | [address], | | | | | | [place] [address] | | | | + + + + + + | Platelet | 181Comment: Testing | 150 - 400 K/uL | EXTERNAL | | | Count | performed at [facility], [address] | | LAB | | | Plasma | [address], | | | | | | [place] [address] | | | | + + + + + + | MPV | 11.3Comment: Testing | fl | EXTERNAL | | | | performed at [facility], [address] | | LAB | | | | [address], | | | | | | [place] [address] | | | | + + + + + + | Differentia | MANUALComment: Testing | | EXTERNAL | | | l Type | performed at [facility], [address] | | LAB | | | | [address], | | | | | | [place] [address] | | | | + + + + + + | Segmented | 45Comment: Testing | % | EXTERNAL | | | Neutrophils | performed at [facility], [address] | | LAB | | | Manual | [address], | | | | | | [place] [address] | | | | + + + + + + | % Bands | 1Comment: Testing | % | EXTERNAL | | | | performed at [facility], [address] | | LAB | | | | [address], | | | | | | [place] [address] | | | | + + + + + + | Lymphocytes | 35Comment: Testing | % | EXTERNAL | | | Manual | performed at [facility], [address] | | LAB | | | | [address], | | | | | | [place], [place] [address] | | | | + + + + + + | Monocytes | 11Comment: Testing | % | EXTERNAL | | | Manual | performed at [facility], [address] | | LAB | | | | [address], | | | | | | [place] [address] | | | | + + + + + + | Eosinophils | 8Comment: Testing | % | EXTERNAL | | | Manual | performed at [facility], [address] | | LAB | | | | [address], | | | | | | [place] [address] | | | | + + + + + + | Absolute | 3.85Comment: Testing | 1.90 - 7.40 | EXTERNAL | | | Neutrophils | performed at [facility], [address] | K/uL | LAB | | | | [address], | | | | | | [place] [address] | | | | + + + + + + | Bands | 0.09Comment: Testing | 0.00 - 0.20 | EXTERNAL | | | Manual | performed at [facility], [address] | K/uL | LAB | | | | [address], | | | | | | [place] [address] | | | | + + + + + + | Absolute | 3.01Comment: Testing | 1.00 - 3.90 | EXTERNAL | | | Lymphocytes | performed at [facility], [address] | K/uL | LAB | | | | [address], | | | | | | [place] [address] | | | | + + + + + + | Absolute | 0.95 (H)Comment: Testing | 0.00 - 0.80 | EXTERNAL | | | Monocytes | performed at [facility], [address] | K/uL | LAB | | | | [address], | | | | | | [place] [address] | | | | + + + + + + | Absolute | 0.69 (H)Comment: Testing | 0.00 - 0.50 | EXTERNAL | | | Eosinophils | performed at [facility], [address] | K/uL | LAB | | | | [address], | | | | | | [place] [address] | | | | + + + + + + | RBC | 2+Comment: MACRONORMAL | | EXTERNAL | | | Morphology | PLT MORPHTesting | | LAB | | | | performed at [facility], [address] | | | | | | [address], | | | | | | [place] [address] | | | | | | | [...] | | | | | [place] [address] | | | | + + + [...] | performed at [facility], [address] | | LAB | | | | [address], | | | | | | [place] [address] | | | | + + + [...] | | | | | [place] [address] | | | | + + + + + + | K | 3.2 (L)Comment: Testing | 3.5 - 4.9 | EXTERNAL | | | | performed at [facility], [address] | mmol/L | LAB | | | | [address], | | | | | | [place] [address] | | | | + + + + + + | Cl | 103Comment: Testing | 99 - 109 mmol/L | EXTERNAL | | | | performed at [facility], [address] | | LATA | | | | [address], | | | | | | [place] [address] | | | | + + + + + + | CO2 | 31Comment: Testing | 23 - 32 mmol/L | EXTERNAL | | | | performed at [facility], [address] | | LAB | | | | [address], | | | | | | [place] [address] | | | | + + + + + + | Anion Gap | 7Comment: Testing | 5 - 20 mmol/L | EXTERNAL | | | | performed at [facility], [address] | | LAB | | | | [address], | | | | | | [place] [address] | | | | + + + + + + | Glucose, | 104 (H)Comment: Testing | 65 - 99 mg/dL | EXTERNAL | | | Fasting | performed at [facility], [address] | | LAB | | | | [address], | | | | | | [place] [address] | | | | + + + + + + | BUN | 10Comment: Testing | 8 - 25 mg/dL | EXTERNAL | | | | performed at [facility], [address] | | LAB | | | | [address], | | | | | | [place] [address] | | | | + + + + + + | Creatinine | 0.83Comment: Testing | 0.50 - 1.00 | EXTERNAL | | | | performed at [facility], [address] | mg/dL | LAB | | | | [address], | | | | | | [place] [address] | | | | + + + [...] | | | | | [place] [address] | | | | + + + + + + | Protein, | 6.2 (L)Comment: Testing | 6.3 - 8.2 g/dL | EXTERNAL | | | Total | performed at [facility], [address] | | LAB | | | | [address], | | | | | | [place] [address] | | | | + + + + + + | Albumin | 2.7 (L)Comment: Testing | 3.3 - 4.8 g/dL | EXTERNAL | | | | performed at [facility], [address] | | LAB | | | | [address], | | | | | | [place] [address] | | | | + + + + + + | Globulin | 3.5Comment: Testing | 1.3 - 4.9 g/dL | EXTERNAL | | | | performed at [facility], [address] | | LAB | | | | [address], | | | | | | [place] [address] | | | | + + + + + + | A/G Ratio | 0.8 (L)Comment: Testing | 1.0 - 2.4 | EXTERNAL | | | | performed at [facility], [address] | | LAB | | | | [address], | | | | | | [place] [address] | | | | + + + + + + | Bilirubin | 0.5Comment: Testing | 0.1 - 1.5 mg/dL | EXTERNAL | | | Total | performed at [facility], [address] | | LAB | | | | [address], | | | | | | [place] [address] | | | | + + + + + + | ALP, | 98Comment: Testing | 35 - 115 U/L | EXTERNAL | | | External | performed at [facility], [address] | | LAB | | | | [address], | | | | | | [place] [address] | | | | + + + + + + | AST | 35Comment: Testing | 10 - 45 U/L | EXTERNAL | | | | performed at [facility], [address] | | LAB | | | | [address], | | | | | | [place] [address] | | | | + + + + + + | ALT | 15Comment: Testing | 10 - 65 U/L | EXTERNAL | | | | performed at [facility], [address] | | LAB | | | | [address], | | | | | | [place] [address] | | | | + + + [...] [address], | | | | | | [place] [address] | | | | + + + [...] | performed at [facility], [address] | | LAB | | | | [address], | | | | | | [place] [address] | | | | + + + [...] | | | B-12 | performed at [facility], [address] | pg/mL | LAB | | | | [address], | | | | | | [place] [address] | | | | + + + [...] | performed at [facility], [address] | K/uL | LAB | | | | [address], | | | | | | [place] [address] | | | | + + + + + + | RED CELL | 2.72 (L)Comment: Testing | 3.70 - 5.10 | EXTERNAL | | | COUNT | performed at [facility], [address] | M/uL | LAB | | | | [address], | | | | | | [place] [address] | | | | + + + + + + | Hgb | 9.4 (L)Comment: Testing | 11.3 - 15.5 | EXTERNAL | | | | performed at [facility], [address] | g/dL | LAB | | | | [address], | | | | | | [place] [address] | | | | + + + + + + | Hematocrit, | 29.1 (L)Comment: Testing | 34.0 - 46.0 % | EXTERNAL | | | POC | performed at [facility], [address] | | LAB | | | | [address], | | | | | | [place] [address] | | | | + + + + + + | MCV | 107.3 (H)Comment: | 80.0 - 100.0 fl | EXTERNAL | | | | Testing performed at | | LAB | | | | [facility], [address] | | | | | | [place] | | | | | | [address] | | | | + + + + + + | MCH | 34.6 (H)Comment: Testing | 27.0 - 34.0 pg | EXTERNAL | | | | performed at [facility], [address] | | LAB | | | | [address], | | | | | | [place] [address] | | | | + + + + + + | MCHC | 32.2Comment: Testing | 32.0 - 35.5 | EXTERNAL | | | | performed at [facility], [address] | g/dL | LAB | | | | [address], | | | | | | [place] [address] | | | | + + + + + + | RDW-CV | 57.3 (H)Comment: Testing | 37 - 53 fl | EXTERNAL | | | | performed at [facility], [address] | | LAB | | | | [address], | | | | | | [place] [address] | | | | + + + + + + | Platelet | 174Comment: Testing | 150 - 400 K/uL | EXTERNAL | | | Count | performed at [facility], [address] | | LAB | | | Plasma | [address], | | | | | | [place] [address] | | | | + + + + + + | MPV | 10.9Comment: Testing | fl | EXTERNAL | | | | performed at [facility], [address] | | LAB | | | | [address], | | | | | | [place] [address] | | | | + + + + + + | Differentia | MANUALComment: Testing | | EXTERNAL | | | l Type | performed at [facility], [address] | | LAB | | | | [address], | | | | | | [place], [place] [address] | | | | + + + + + + | Segmented | 45Comment: Testing | % | EXTERNAL | | | Neutrophils | performed at [facility], [address] | | LAB | | | Manual | [address], | | | | | | [place], [place] [address] | | | | + + + + + + | % Bands | 1Comment: Testing | % | EXTERNAL | | | | performed at [facility], [address] | | LAB | | | | [address], | | | | | | [place], [place] [address] | | | | + + + + + + | Lymphocytes | 34Comment: Testing | % | EXTERNAL | | | Manual | performed at [facility], [address] | | LAB | | | | [address], | | | | | | [place] [address] | | | | + + + [...] | | | | | [place] [address] | | | | + + + + + + | Absolute | 3.77Comment: Testing | 1.90 - 7.40 | EXTERNAL | | | Neutrophils | performed at [facility], [address] | K/uL | LAB | | | | [address], | | | | | | [place] [address] | | | | + + + + + + | Bands | 0.08Comment: Testing | 0.00 - 0.20 | EXTERNAL | | | Manual | performed at [facility], [address] | K/uL | LAB | | | | [address], | | | | | | [place] [address] | | | | + + + + + + | Absolute | 2.84Comment: Testing | 1.00 - 3.90 | EXTERNAL | | | Lymphocytes | performed at [facility], [address] | K/uL | LAB | | | | [address], | | | | | | [place] [address] | | | | + + + + + + | Absolute | 0.92 (H)Comment: Testing | 0.00 - 0.80 | EXTERNAL | | | Monocytes | performed at [facility], [address] | K/uL | LAB | | | | [address], | | | | | | [place] [address] | | | | + + + + + + | Absolute | 0.75 (H)Comment: Testing | 0.00 - 0.50 | EXTERNAL | | | Eosinophils | performed at [facility], [address] | K/uL | LAB | | | | [address], | | | | | | [place] [address] | | | | + + + + + + | RBC | NORMAL PLT MORPHComment: | | EXTERNAL | | | Morphology | NORMAL RBC MORPHTesting | | LAB | | | | performed at [facility], [address] | | | | | | [address], | | | | | | [place] [address] | | | | + + + [...] | performed at [facility], [address] | | LAB | | | | [address], | | | | | | [place] [address] | | | | + + + [...] | | | | | [place] [address] | | | | + + + [...] | | | | | [place] [address] | | | | + + + + + + | K | 3.8Comment: Testing | 3.5 - 4.9 | EXTERNAL | | | | performed at [facility], [address] | mmol/L | LAB | | | | [address], | | | | | | [place] [address] | | | | + + + + + + | Cl | 111 (H)Comment: Testing | 99 - 109 mmol/L | EXTERNAL | | | | performed at [facility], [address] | | LAB | | | | [address], | | | | | | [place] [address] | | | | + + + + + + | CO2 | 25Comment: Testing | 23 - 32 mmol/L | EXTERNAL | | | | performed at [facility], [address] | | LAB | | | | [address], | | | | | | [place] [address] | | | | + + + + + + | Anion Gap | 5Comment: Testing | 5 - 20 mmol/L | EXTERNAL | | | | performed at [facility], [address] | | LAB | | | | [address], | | | | | | [place] [address] | | | | + + + + + + | Glucose, | 112 (H)Comment: Testing | 65 - 99 mg/dL | EXTERNAL | | | Fasting | performed at [facility], [address] | | LAB | | | | [address], | | | | | | [place] [address] | | | | + + + + + + | BUN | 13Comment: Testing | 8 - 25 mg/dL | EXTERNAL | | | | performed at [facility], [address] | | LAB | | | | [address], | | | | | | [place] [address] | | | | + + + + + + | Creatinine | 0.74Comment: Testing | 0.50 - 1.00 | EXTERNAL | | | | performed at [facility], [address] | mg/dL | LAB | | | | [address], | | | | | | [place] [address] | | | | + + + + + + | BUN/Creatin | 18Comment: Testing | | EXTERNAL | | | ine Ratio | performed at [facility], [address] | | LAB | | | | [address], | | | | | | [place] [address] | | | | + + + + + + | Calcium | 8.0 (L)Comment: Testing | 8.5 - 10.5 | EXTERNAL | | | | performed at [facility], [address] | mg/dL | LAB | | | | [address], | | | | | | [place] [address] | | | | + + + + + + | Protein, | 5.9 (L)Comment: Testing | 6.3 - 8.2 g/dL | EXTERNAL | | | Total | performed at [facility], [address] | | LAB | | | | [address], | | | | | | [place] [address] | | | | + + + + + + | Albumin | 2.6 (L)Comment: Testing | 3.3 - 4.8 g/dL | EXTERNAL | | | | performed at [facility], [address] | | LAB | | | | [address], | | | | | | [place] [address] | | | | + + + + + + | Globulin | 3.3Comment: Testing | 1.3 - 4.9 g/dL | EXTERNAL | | | | performed at [facility], [address] | | LAB | | | | [address], | | | | | | [place] [address] | | | | + + + + + + | A/G Ratio | 0.8 (L)Comment: Testing | 1.0 - 2.4 | EXTERNAL | | | | performed at [facility], [address] | | LAB | | | | [address], | | | | | | [place] [address] | | | | + + + + + + | Bilirubin | 0.4Comment: Testing | 0.1 - 1.5 mg/dL | EXTERNAL | | | Total | performed at [facility], [address] | | LAB | | | | [address], | | | | | | [place] [address] | | | | + + + [...] | | LAB | | | | [address], | | | | | | [place] [address] | | | | + + + + + + | ALT | 14Comment: Testing | 10 - 65 U/L | EXTERNAL | | | | performed at [facility], [address] | | LAB | | | | [address], | | | | | | [place] [address] | | | | + + + [...] | | | | | [place] [address] | | | | + + + [...] | performed at [facility], [address] | K/uL | LAB | | | | [address], | | | | | | [place] [address] | | | | + + + + + + | RED CELL | 2.78 (L)Comment: Testing | 3.70 - 5.10 | EXTERNAL | | | COUNT | performed at [facility], [address] | M/uL | LAB | | | | [address], | | | | | | [place] [address] | | | | + + + + + + | Hgb | 9.7 (L)Comment: Testing | 11.3 - 15.5 | EXTERNAL | | | | performed at [facility], [address] | g/dL | LAB | | | | [address], | | | | | | [place] [address] | | | | + + + + + + | Hematocrit, | 29.9 (L)Comment: Testing | 34.0 - 46.0 % | EXTERNAL | | | POC | performed at [facility], [address] | | LAB | | | | [address], | | | | | | [place] [address] | | | | + + + + + + | MCV | 107.5 (H)Comment: | 80.0 - 100.0 fl | EXTERNAL | | | | Testing performed at | | LAB | | | | [facility], [address] [facility] [address] | | | | | | [place] | | | | | | [address] | | | | + + + + + + | MCH | 34.9 (H)Comment: Testing | 27.0 - 34.0 pg | EXTERNAL | | | | performed at [facility], [address] | | LAB | | | | [address], | | | | | | [place] [address] | | | | + + + + + + | MCHC | 32.5Comment: Testing | 32.0 - 35.5 | EXTERNAL | | | | performed at [facility], [address] | g/dL | LAB | | | | [address], | | | | | | [place] [address] | | | | + + + + + + | RDW-CV | 57.3 (H)Comment: Testing | 37 - 53 fl | EXTERNAL | | | | performed at [facility], [address] | | LAB | | | | [address], | | | | | | [place] [address] | | | | + + + + + + | Platelet | 162Comment: Testing | 150 - 400 K/uL | EXTERNAL | | | Count | performed at [facility], [address] | | LAB | | | Plasma | [address], | | | | | | [place] [address] | | | | + + + + + + | MPV | 11.6Comment: Testing | fl | EXTERNAL | | | | performed at [facility], [address] | | LAB | | | | [address], | | | | | | [place], [place] [address] | | | | + + + + + + | Differentia | MANUALComment: Testing | | EXTERNAL | | | l Type | performed at [facility], [address] | | LAB | | | | [address], | | | | | | [place], [place] [address] | | | | + + + + + + | Segmented | 31Comment: Testing | % | EXTERNAL | | | Neutrophils | performed at [facility], [address] | | LAB | | | Manual | [address], | | | | | | [place], [place] [address] | | | | + + + + + + | Lymphocytes | 52Comment: Testing | % | EXTERNAL | | | Manual | performed at [facility], [address] | | LAB | | | | [address], | | | | | | [place] [address] | | | | + + + + + + | Monocytes | 11Comment: Testing | % | EXTERNAL | | | Manual | performed at [facility], [address] | | LAB | | | | [address], | | | | | | [place] [address] | | | | + + + + + + | Eosinophils | 6Comment: Testing | % | EXTERNAL | | | Manual | performed at [facility], [address] | | LAB | | | | [address], | | | | | | [place] [address] | | | | + + + + + + | Absolute | 3.19Comment: Testing | 1.90 - 7.40 | EXTERNAL | | | Neutrophils | performed at [facility], [address] | K/uL | LAB | | | | [address], | | | | | | [place] [address] | | | | + + + + + + | Absolute | 5.36 (H)Comment: Testing | 1.00 - 3.90 | EXTERNAL | | | Lymphocytes | performed at [facility], [address] | K/uL | LAB | | | | [address], | | | | | | [place] [address] | | | | + + + + + + | Absolute | 1.13 (H)Comment: Testing | 0.00 - 0.80 | EXTERNAL | | | Monocytes | performed at [facility], [address] | K/uL | LAB | | | | [address], | | | | | | [place] [address] | | | | + + + + + + | Absolute | 0.62 (H)Comment: Testing | 0.00 - 0.50 | EXTERNAL | | | Eosinophils | performed at [facility], [address] | K/uL | LAB | | | | [address], | | | | | | [place] [address] | | | | + + + + + + | RBC | 2+Comment: MACRONORMAL | | EXTERNAL | | | Morphology | PLT MORPHTesting | | LAB | | | | performed at [facility], [address] | | | | | | [address], | | | | | | [place] [address] | | | | | | | [...] | performed at [facility], [address] | | LAB | | | | [address], | | | | | | [place] [address] | | | | + + + [...] | performed at [facility], [address] | | LAB | | | | [address], | | | | | | [place] [address] | | | | + + + [...] | | | | | [place] [address] | | | | + + + + + + | K | 4.2Comment: Testing | 3.5 - 4.9 | EXTERNAL | | | | performed at [facility], [address] | mmol/L | LAB | | | | [address], | | | | | | [place] [address] | | | | + + + + + + | Cl | 112 (H)Comment: Testing | 99 - 109 mmol/L | EXTERNAL | | | | performed at [facility], [address] | | LAB | | | | [address], | | | | | | [place] [address] | | | | + + + + + + | CO2 | 27Comment: Testing | 23 - 32 mmol/L | EXTERNAL | | | | performed at [facility], [address] | | LAB | | | | [address], | | | | | | [place] [address] | | | | + + + + + + | Anion Gap | 4 (L)Comment: Testing | 5 - 20 mmol/L | EXTERNAL | | | | performed at [facility], [address] | | LAB | | | | [address], | | | | | | [place] [address] | | | | + + + + + + | Glucose, | 94Comment: Testing | 65 - 99 mg/dL | EXTERNAL | | | Fasting | performed at [facility], [address] | | LAB | | | | [address], | | | | | | [place] [address] | | | | + + + + + + | BUN | 19Comment: Testing | 8 - 25 mg/dL | EXTERNAL | | | | performed at [facility], [address] | | LAB | | | | [address], | | | | | | [place] [address] | | | | + + + + + + | Creatinine | 1.01 (H)Comment: Testing | 0.50 - 1.00 | EXTERNAL | | | | performed at [facility], [address] | mg/dL | LAB | | | | [address], | | | | | | [place] [address] | | | | + + + + + + | BUN/Creatin | 19Comment: Testing | | EXTERNAL | | | ine Ratio | performed at [facility], [address] | | LAB | | | | [address], | | | | | | [place] [address] | | | | + + + + + + | Calcium | 8.1 (L)Comment: Testing | 8.5 - 10.5 | EXTERNAL | | | | performed at [facility], [address] | mg/dL | LAB | | | | [address], | | | | | | [place] [address] | | | | + + + + + + | Protein, | 5.9 (L)Comment: Testing | 6.3 - 8.2 g/dL | EXTERNAL | | | Total | performed at [facility], [address] | | LAB | | | | [address], | | | | | | [place] [address] | | | | + + + [...] | | | | | [place] [address] | | | | + + + + + + | A/G Ratio | 0.7 (L)Comment: Testing | 1.0 - 2.4 | EXTERNAL | | | | performed at [facility], [address] | | LAB | | | | [address], | | | | | | [place] [address] | | | | + + + + + + | Bilirubin | 0.3Comment: Testing | 0.1 - 1.5 mg/dL | EXTERNAL | | | Total | performed at [facility], [address] | | LAB | | | | [address], | | | | | | [place] [address] | | | | + + + + + + | ALP, | 98Comment: Testing | 35 - 115 U/L | EXTERNAL | | | External | performed at [facility], [address] | | LAB | | | | [address], | | | | | | [place] [address] | | | | + + + + + + | AST | 24Comment: Testing | 10 - 45 U/L | EXTERNAL | | | | performed at [facility], [address] | | LAB | | | | [address], | | | | | | [place] [address] | | | | + + + + + + | ALT | 14Comment: Testing | 10 - 65 U/L | EXTERNAL | | | | performed at [facility], [address] | | LAB | | | | [facility], | | | | | | [place] [address] | | | | + + + [...] W | | | | | [facility] | | [facility] | | | [place] [address] | | | | + + + [...] [place] | | | | | | [address] | | | | + + +---- + + + | RED CELL | 2.93 (L)Comment: Testing | 3.7 0 - 5.10 | EXTERNAL | | | COUNT | performed at [facility], [address] | M/u L | LAB | | | | [address], | | | | | | [place] [address] | | | | + + +---- + + + | Hgb | 10.2 (L)Comment: Testing | 11. 3 - 15.5 | EXTERNAL | | | | performed at [facility], [address] | g/d L | LAB | | | | [address], | | | | | | [place] [address] | | | | + + +---- + + + | Hematocrit, | 31.6 (L)Comment: Testing | 34. 0 - 46.0 % | EXTERNAL | | | POC | performed at [facility], [address] | | LAB | | | | [address], | | | | | | [place] [address] | | | | + + +---- + + + | MCV | 107.8 (H)Comment: | 80. 0 - 100.0 fl | EXTERNAL | | | | Testing performed at | | LAB | | | | [facility], [address] | | | | | | [place] | | | | | | [address] | | | | + + +---- + + + | MCH | 34.8 (H)Comment: Testing | 27. 0 - 34.0 pg | EXTERNAL | | | | performed at [facility], [address] | | LAB | | | | [address], | | | | | | [place] [address] | | | | + + +---- + + + | MCHC | 32.3Comment: Testing | 32. 0 - 35.5 | EXTERNAL | | | | performed at [facility], [address] | g/d L | LAB | | | | [address], | | | | | | [place] [address] | | | | + + +---- + + + | RDW-CV | 57.3 (H)Comment: Testing | 37 - 53 fl | EXTERNAL | | | | performed at [facility], [address] | | LAB | | | | [address], | | | | | | [place] [address] | | | | + + +---- + + + | Platelet | 146 (L)Comment: Testing | 150 - 400 K/uL | EXTERNAL | | | Count | performed at [facility], [address] | | LAB | | | Plasma | [address], | | | | | | [place] [address] | | | | + + +---- + + + | MPV | 11.2Comment: Testing | fl | EXTERNAL | | | | performed at [facility], [address] | | LAB | | | | [address], | | | | | | [place] [address] | | | | + + +---- + + + | Differentia | MANUALComment: Testing | | EXTERNAL | | | l Type | performed at [facility], [address] | | LAB | | | | [address], | | | | | | [place] [address] | | | | + + +---- + + + | Segmented | 58Comment: Testing | % | EXTERNAL | | | Neutrophils | performed at [facility], [address] | | LAB | | | Manual | [address], | | | | | | [place] [address] | | | | + + +---- + + + | % Bands | 20Comment: Testing | % | EXTERNAL | | | | performed at [facility], [address] | | LAB | | | | [address], | | | | | | [place] [address] | | | | + + +---- + + + | Lymphocytes | 13Comment: Testing | % | EXTERNAL | | | Manual | performed at [facility], [address] | | LAB | | | | [address], | | | | | | [place] [address] | | | | + + +---- + + + | Monocytes | 7Comment: Testing | % | EXTERNAL | | | Manual | performed at [facility], [address] | | LAB | | | | [address], | | | | | | [place] [address] | | | | + + +---- + + + | Eosinophils | 2Comment: Testing | % | EXTERNAL | | | Manual | performed at [facility], [address] | | LAB | | | | [address], | | | | | | [place] [address] | | | | + + +---- + + + | Absolute | 9.23 (H)Comment: Testing | 1.9 0 - 7.40 | EXTERNAL | | | Neutrophils | performed at [facility], [address] | K/u L | LAB | | | | [address], | | | | | | [place] [address] | | | | + + +---- + + + | Bands | 3.18 (H)Comment: Testing | 0.0 0 - 0.20 | EXTERNAL | | | Manual | performed at [facility], [address] | K/u L | LAB | | | | [address], | | | | | | [place] [address] | | | | + + +---- + + + | Absolute | 2.07Comment: Testing | 1.0 0 - 3.90 | EXTERNAL | | | Lymphocytes | performed at [facility], [address] | K/u L | LAB | | | | [address], | | | | | | [place] [address] | | | | + + +---- + + + | Absolute | 1.11 (H)Comment: Testing | 0.0 0 - 0.80 | EXTERNAL | | | Monocytes | performed at [facility], [address] | [address] L | LAB | | | | [address], | | | | | | [place] [address] | | | | + + +---- + + + | Absolute | 0.32Comment: Testing | 0.0 0 - 0.50 | EXTERNAL | | | Eosinophils | performed at [facility], [address] | K/u L | LAB | | | | [address], | | | | | | [place] [address] | | | | + + +---- + + + | RBC | 2+Comment: | | EXTERNAL | | | Morphology | MACRO1+ANISONORMAL PLT | | LAB | | | | MORPHTesting performed | | | | | | at [facility], [address] | | | | | | [employer], | | | | | | [place] [address] | | | | | |Testing performed at [facility], [address] [place] [address] | | | | | | | [...] | performed at [facility], [address] | | LAB | | | | [address], | | | | | | [place] [address] | | | | + + + [...] | | | | | [place] [address] | | | | + + [...] | | | | | [place] [address] | | | | + + + + + + | K | 3.9Comment: Testing | 3.5 - 4.9 | EXTERNAL | | | | performed at [facility], [address] | mmol/L | LAB | | | | [address], | | | | | | [place] [address] | | | | + + + [...] | | | | | [place] [address] | | | | + + + + + + | Anion Gap | 8Comment: Testing | 5 - 20 mmol/L | EXTERNAL | | | | performed at [facility], [address] | | LAB | | | | [address], | | | | | | [place] [address] | | | | + + + + + + | Glucose, | 98Comment: Testing | 65 - 99 mg/dL | EXTERNAL | | | Fasting | performed at [facility], [address] | | LAB | | | | [address], | | | | | | [place] [address] | | | | + + + + + + | BUN | 25Comment: Testing | 8 - 25 mg/dL | EXTERNAL | | | | performed at [facility], [address] | | LAB | | | | [address], | | | | | | [place] [address] | | | | + + + + + + | Creatinine | 1.39 (H)Comment: Testing | 0.50 - 1.00 | EXTERNAL | | | | performed at [facility], [address] | mg/dL | LAB | | | | [address], | | | | | | [place] [address] | | | | + + + + + + | BUN/Creatin | 18Comment: Testing | | EXTERNAL | | | ine Ratio | performed at [facility], [address] | | LAB | | | | [address], | | | | | | [place] [address] | | | | + + + + + + | Calcium | 8.2 (L)Comment: Testing | 8.5 - 10.5 | EXTERNAL | | | | performed at [facility], [address] | mg/dL | LAB | | | | [address], | | | | | | [place] [address] | | | | + + + + + + | Protein, | 6.1 (L)Comment: Testing | 6.3 - 8.2 g/dL | EXTERNAL | | | Total | performed at [facility], [address] | | LAB | | | | [address], | | | | | | [place] [address] | | | | + + + + + + | Albumin | 2.4 (L)Comment: Testing | 3.3 - 4.8 g/dL | EXTERNAL | | | | performed at [facility], [address] | | LAB | | | | [address], | | | | | | [place] [address] | | | | + + + [...] | | | | | [place] [address] | | | | + + + + + + | Bilirubin | 0.4Comment: Testing | 0.1 - 1.5 mg/dL | EXTERNAL | | | Total | performed at [facility], [address] | | LAB | | | | [address], | | | | | | [place] [address] | | | | + + + + + + | ALP, | 111Comment: Testing | 35 - 115 U/L | EXTERNAL | | | External | performed at [facility], [address] | | LAB | | | | [address], | | | | | | [place] [address] | | | | + + + + + + | AST | 29Comment: Testing | 10 - 45 U/L | EXTERNAL | | | | performed at [facility], [address] | | LAB | | | | [address], | | | | | | [place] [address] | | | | + + + + + + | ALT | 14Comment: Testing | 10 - 65 U/L | EXTERNAL | | | | performed at [facility], [address] | | LAB | | | | [address], | | | | | | [place] [address] | | | | + + + [...] | | at [facility], [address] | | | | | | [employer] [facility] [address], | | | | | | [place] [address] | | | | + + + [...] | | | | [facility], [address] [facility] | | | | | | [place] | | | | | | [address] | | | | + + + + + + | RED CELL | 3.12 (L)Comment: Testing | 3.70 - 5.10 | EXTERNAL | | | COUNT | performed at [facility], [address] | M/uL | LAB | | | | [address], | | | | | | [place] [address] | | | | + + + + + + | Hgb | 10.8 (L)Comment: Testing | 11.3 - 15.5 | EXTERNAL | | | | performed at [facility], [address] | g/dL | LAB | | | | [address], | | | | | | [place] [address] | | | | + + + + + + | Hematocrit, | 33.7 (L)Comment: Testing | 34.0 - 46.0 % | EXTERNAL | | | POC | performed at [facility], [address] | | LAB | | | | [address], | | | | | | [place] [address] | | | | + + + + + + | MCV | 108.0 (H)Comment: | 80.0 - 100.0 fl | EXTERNAL | | | | Testing performed at | | LAB | | | | [facility], [address] | | | | | | [place] | | | | | | [address] | | | | + + + + + + | MCH | 34.7 (H)Comment: Testing | 27.0 - 34.0 pg | EXTERNAL | | | | performed at [facility], [address] | | LAB | | | | [address], | | | | | | [place] [address] | | | | + + + [...] | | | | | [place] [address] | | | | + + + + + + | Platelet | 153Comment: Testing | 150 - 400 K/uL | EXTERNAL | | | Count | performed at [facility], [address] | | LAB | | | Plasma | [address], | | | | | | [place] [address] | | | | + + + + + + | MPV | 11.2Comment: Testing | fl | EXTERNAL | | | | performed at [facility], [address] | | LAB | | | | [address], | | | | | | [place], [place] [address] | | | | + + + + + + | Differentia | MANUALComment: Testing | | EXTERNAL | | | l Type | performed at [facility], [address] | | LAB | | | | [address], | | | | | | [place], [place] [address] | | | | + + + + + + | Segmented | 64Comment: Testing | % | EXTERNAL | | | Neutrophils | performed at [facility], [address] | | LAB | | | Manual | [address], | | | | | | [place] [address] | | | | + + + + + + | % Bands | 15Comment: Testing | % | EXTERNAL | | | | performed at [facility], [address] | | LAB | | | | [address], | | | | | | [place] [address] | | | | + + + + + + | % | 2Comment: Testing | % | EXTERNAL | | | Metamyelocy | performed at [facility], [address] | | LAB | | | [address] | [address], | | | | | | [place] [address] | | | | + + + + + + | Lymphocytes | 12Comment: Testing | % | EXTERNAL | | | Manual | performed at [facility], [address] | | LAB | | | | [address], | | | | | | [place] [address] | | | | + + + + + + | Monocytes | 6Comment: Testing | % | EXTERNAL | | | Manual | performed at [facility], [address] | | LAB | | | | [address], | | | | | | [place] [address] | | | | + + + + + + | Eosinophils | 1Comment: Testing | % | EXTERNAL | | | Manual | performed at [facility], [address] | | LAB | | | | [address], | | | | | | [place] [address] | | | | + + + + + + | Absolute | 11.48 (H)Comment: | 1.90 - 7.40 | EXTERNAL | | | Neutrophils | Testing performed at | K/uL | LAB | | | | [facility], [address] [facility] | | | | | | [place] | | | | | | [address] | | | | + + + + + + | Bands | 2.69 (H)Comment: Testing | 0.00 - 0.20 | EXTERNAL | | | Manual | performed at [facility], [address] | [address]L | LAB | | | | [address], | | | | | | [place] [address] | | | | + + + + + + | Absolute | 0.36 (H)Comment: Testing | K/uL | EXTERNAL | | | Metamyelocy | performed at [facility], [address] | | LAB | | | ir[address] | [address], | | | | | | [place] [address] | | | | + + + + + + | Absolute | 2.15Comment: Testing | 1.00 - 3.90 | EXTERNAL | | | Lymphocytes | performed at [facility], [address] | K[address]L | LAB | | | | [address], | | | | | | [place] [address] | | | | + + + + + + | Absolute | 1.08 (H)Comment: Testing | 0.00 - 0.80 | EXTERNAL | | | Monocytes | performed at [facility], [address] | K/uL | LAB | | | | [address], | | | | | | [place] [address] | | | | + + + + + + | Absolute | 0.18Comment: Testing | 0.00 - 0.50 | EXTERNAL | | | Eosinophils | performed at [facility], [address] | K/uL | LAB | | | | [address], | | | | | | [place] [address] | | | | + + + + + + | RBC | 2+Comment: MACRONORMAL | | EXTERNAL | | | Morphology | PLT MORPHTesting | | LAB | | | | performed at [facility], [address] | | | | | | [address], | | | | | | [place] [address] | | | | | | | [...] EXTERNAL | | | | performed at [facility];[address] | mmol/L | LAB | | | | [address];[place] | | | | | | [address] | | | | + + + + + + | K | 3.8Comment: Testing | 3.5 - 4.9 | EXTERNAL | | | | performed at [facility];[address] | mmol/L | LAB | | | | [address];[place] | | | | | | [address] | | | | + + + + + + | Cl | 107Comment: Testing | 99 - 109 mmol/L | EXTERNAL | | | | performed at [facility];[address] | | LAB | | | | [address];[place] | | | | | | [address] | | | | + + + + + + | CO2 | 26Comment: Testing | 23 - 32 mmol/L | EXTERNAL | | | | performed at [facility];[address] | | LAB | | | | [address];[place] | | | | | | [address] | | | | + + + + + + | Anion Gap | 12Comment: Testing | 5 - 20 mmol/L | EXTERNAL | | | | performed at [facility];[address] | | LAB | | | | [address];[place] | | | | | | [address] | | | | + + + + + + | Glucose, | 127 (H)Comment: Testing | 65 - 99 mg/dL | EXTERNAL | | | Fasting | performed at [facility];[address] | | LAB | | | | [address];[place] | | | | | | [address] | | | | + + + + + + | BUN | 28 (H)Comment: Testing | 8 - 25 mg/dL | EXTERNAL | | | | performed at [facility];[address] | | LAB | | | | [address];[place] | | | | | | [address] | | | | + + + + + + | Creatinine | 1.8 (H)Comment: Testing | 0.50 - 1.00 | EXTERNAL | | | | performed at [facility];[address] | mg/dL | LAB | | | | [address];[place] | | | | | | [address] | | | | + + + + + + | BUN/Creatin | 16Comment: Testing | | EXTERNAL | | | ine Ratio | performed at [facility];[address] | | LAB | | | | [address];[place] | | | | | | [address] | | | | + + + + + + | Calcium | 7.6 (L)Comment: Testing | 8.5 - 10.5 | EXTERNAL | | | | performed at [facility];[address] | mg/dL | LAB | | | | [address];[place] | | | | | | [address] | | | | + + + [...] | | | | | | at [facility];[address];[place] [address] | | | | + + + [...] | | | | | | at [facility];[address] [place] [address] | | | | | | [facility];[place] [address] | | | | + + + [...] LAB | | | | [facility], [address] [facility] | | | | | | [place] | | | | | | [address] | | | | + + +---- + + + | RED CELL | 3.07 (L)Comment: Testing | 3.7 0 - 5.10 | EXTERNAL | | | COUNT | performed at [facility], [address] | M/u L | LAB | | | | [address], | | | | | | [place] [address] | | | | + + +---- + + + | Hgb | 10.8 (L)Comment: Testing | 11. 3 - 15.5 | EXTERNAL | | | | performed at [facility], [address] | g/d L | LAB | | | | [address], | | | | | | [place] [address] | | | | + + +---- + + + | Hematocrit, | 32.7 (L)Comment: Testing | 34. 0 - 46.0 % | EXTERNAL | | | POC | performed at [facility], [address] | | LAB | | | | [address], | | | | | | [place] [address] | | | | + + +---- + + + | MCV | 106.4 (H)Comment: | 80. 0 - 100.0 fl | EXTERNAL | | | | Testing performed at | | LAB | | | | [facility], [address] [facility] [address] | | | | | | [place] | | | | | | [address] | | | | + + +---- + + + | MCH | 35.1 (H)Comment: Testing | 27. 0 - 34.0 pg | EXTERNAL | | | | performed at [facility], [address] | | LAB | | | | [address], | | | | | | [place] [address] | | | | + + +---- + + + | MCHC | 33.0Comment: Testing | 32. 0 - 35.5 | EXTERNAL | | | | performed at [facility], [address] | g/d L | LAB | | | | [address], | | | | | | [place] [address] | | | | + + +---- + + + | RDW-CV | 56.0 (H)Comment: Testing | 37 - 53 fl | EXTERNAL | | | | performed at [facility], [address] | | LAB | | | | [address], | | | | | | [place] [address] | | | | + + +---- + + + | Platelet | 151Comment: Testing | 150 - 400 K/uL | EXTERNAL | | | Count | performed at [facility], [address] | | LAB | | | Plasma | [address], | | | | | | [place] [address] | | | | + + +---- + + + | MPV | 11.7Comment: Testing | fl | EXTERNAL | | | | performed at [facility], [address] | | LAB | | | | [address] [place], | | | | | | [place] [address] | | | | + + +---- + + + | Differentia | MANUALComment: Testing | | EXTERNAL | | | l Type | performed at [facility], [address] | | LAB | | | | [place] [place], | | | | | | [place] [address] | | | | + + +---- + + + | Segmented | 57Comment: Testing | % | EXTERNAL | | | Neutrophils | performed at [facility], [address] | | LAB | | | Manual | [address] [place], | | | | | | [place] [address] | | | | + + +---- + + + | % Bands | 26Comment: Testing | % | EXTERNAL | | | | performed at [facility], [address] | | LAB | | | | [address] [place], | | | | | | [place] [address] | | | | + + +---- + + + | % | 4Comment: Testing | % | EXTERNAL | | | Metamyelocy | performed at [facility], [address] | | LAB | | | [address] | [place] [place], | | | | | | [place] [address] | | | | + + +---- + + + | Lymphocytes | 9Comment: Testing | % | EXTERNAL | | | Manual | performed at [facility], [address] | | LAB | | | | [address] [place], | | | | | | [place] [address] | | | | + + +---- + + + | Monocytes | 4Comment: Testing | % | EXTERNAL | | | Manual | performed at [facility], [address] | | LAB | | | | [address] [place], | | | | | | [place] [address] | | | | + + +---- + + + | Absolute | 10.53 (H)Comment: | 1.9 0 - 7.40 | EXTERNAL | | | Neutrophils | Testing performed at | K/u L | LAB | | | | [facility], [address] | | | | | | [place] | | | | | | [address] | | | | + + +---- + + + | Bands | 4.80 (H)Comment: Testing | 0.0 0 - 0.20 | EXTERNAL | | | Manual | performed at [facility], [address] | K/u L | LAB | | | | [address] [place], | | | | | | [place] [address] | | | | + + +---- + + + | Absolute | 0.74 (H)Comment: Testing | K/u L | EXTERNAL | | | Metamyelocy | performed at [facility], [address] | | LAB | | | [address] | [address], | | | | | | [place] [address] | | | | + + +---- + + + | Absolute | 1.66Comment: Testing | 1.0 0 - 3.90 | EXTERNAL | | | Lymphocytes | performed at [facility], [address] | K/u L | LAB | | | | [address], | | | | | | [place] [address] | | | | + + +---- + + + | Absolute | 0.74Comment: Testing | 0.0 0 - 0.80 | EXTERNAL | | | Monocytes | performed at [facility], [address] | K/u L | LAB | | | | [address], | | | | | | [place] [address] | | | | + + +---- + + + | RBC | 2+Comment: | | EXTERNAL | | | Morphology | MACRO1+ANISONORMAL PLT | | LAB | | | | MORPHTesting performed | | | | | | at [facility], [address] | | | | | | [facility], | | | | | | [place] [address] | | | | | |Testing performed at [facility], [address] [facility], [place] [address] | | | | | | | [...] EXTERNAL | | | | performed at [facility];[address] | | LAB | | | | [address];[place], [place] | | | | | | [address] | | | | + + + [...] | | | | | performed at [facility];[address] | | | | | | [address];[place] | | | | | | [address] | | | | + + + [...] EXTERNAL | | | | performed at [facility];[address] | mmol/L | LAB | | | | [address];[place], [place] | | | | | | [address] | | | | + + + [...] EXTERNAL | | | | performed at [facility];[address] | mmol/L | LAB | | | | [address];[place] | | | | | | [address] | | | | + + + + + + | K | 4.4Comment: SPECIMEN | 3.5 - 4.9 | EXTERNAL | | | | SLIGHTLY | mmol/L | LAB | | | | HEMOLYZEDTesting | | | | | | performed at [facility];[address] | | | | | | [address];[place] | | | | | | [address] | | | | + + + + + + | Cl | 106Comment: Testing | 99 - 109 mmol/L | EXTERNAL | | | | performed at [facility];[address] | | LAB | | | | [address];[place] | | | | | | [address] | | | | + + + + + + | CO2 | 24Comment: Testing | 23 - 32 mmol/L | EXTERNAL | | | | performed at [facility];[address] | | LAB | | | | [address];[place] | | | | | | [address] | | | | + + + + + + | Anion Gap | 12Comment: Testing | 5 - 20 mmol/L | EXTERNAL | | | | performed at [facility];[address] | | LAB | | | | [address];[place] | | | | | | [address] | | | | + + + + + + | Glucose, | 103 (H)Comment: Testing | 65 - 99 mg/dL | EXTERNAL | | | Fasting | performed at [facility];[address] | | LAB | | | | [address];[place] | | | | | | [address] | | | | + + + + + + | BUN | 22Comment: Testing | 8 - 25 mg/dL | EXTERNAL | | | | performed at [facility];[address] | | LAB | | | | [address];[place] | | | | | | [address] | | | | + + + + + + | Creatinine | 1.9 (H)Comment: Testing | 0.50 - 1.00 | EXTERNAL | | | | performed at [facility];[address] | mg/dL | LAB | | | | [address];[place] | | | | | | [address] | | | | + + + + + + | BUN/Creatin | 12Comment: Testing | | EXTERNAL | | | ine Ratio | performed at [facility];[address] | | LAB | | | | [address];[place] | | | | | | [address] | | | | + + + + + + | Calcium | 7.4 (L)Comment: Testing | 8.5 - 10.5 | EXTERNAL | | | | performed at [facility];[address] | mg/dL | LAB | | | | [address];[place] | | | | | | [address] | | | | + + + + + + | Protein, | 6.5Comment: Testing | 6.3 - 8.2 g/dL | EXTERNAL | | | Total | performed at [facility];[address] | | LAB | | | | [address];[place] | | | | | | [address] | | | | + + + + + + | Albumin | 2.2 (L)Comment: Testing | 3.3 - 4.8 g/dL | EXTERNAL | | | | performed at [facility];[address] | | LAB | | | | [address];[place] | | | | | | [address] | | | | + + + + + + | Globulin | 4.4Comment: Testing | 1.3 - 4.9 g/dL | EXTERNAL | | | | performed at [facility];[address] | | LAB | | | | [address];[place] | | | | | | [address] | | | | + + + + + + | A/G Ratio | 0.5 (L)Comment: Testing | 1.0 - 2.4 | EXTERNAL | | | | performed at [facility];[address] | | LAB | | | | [address];[place] | | | | | | [address] | | | | + + + + + + | Bilirubin | 0.5Comment: Testing | 0.1 - 1.5 mg/dL | EXTERNAL | | | Total | performed at [facility];[address] | | LAB | | | | [address];[place] | | | | | | [address] | | | | + + + + + + | ALP, | 148 (H)Comment: Testing | 35 - 115 U/L | EXTERNAL | | | External | performed at [facility];[address] | | LAB | | | | [address];[place] | | | | | | [address] | | | | + + + + + + | AST | 41Comment: SPECIMEN | 10 - 45 U/L | EXTERNAL | | | | SLIGHTLY | | LAB | | | | HEMOLYZEDTesting | | | | | | performed at [facility];[address] | | | | | | [address];[place] | | | | | | [address] | | | | + + + + + + | ALT | 23Comment: Testing | 10 - 65 U/L | EXTERNAL | | | | performed at [facility];[address] | | LAB | | | | [address];[place] | | | | | | [address] | | | | + + + [...] | | | | | | at [facility];[address] | | | | | | [place] [id number] | | | | + + + [...] WORKUP | | | Testing performed at [facility], [address], [place] | | | [address] | | + + + + +---------+ [...] | performed at [facility], [address] | | LAB | | | | [address], | | | | | | [place] [id number] | | | | + + + + + + | Clarity | CLOUDYComment: Testing | | EXTERNAL | | | | performed at [facility], [address] | | LAB | | | | [place], | | | | | | [place] [id number] | | | | + + + + + + | Specific | 1.015Comment: Testing | 1.002 - 1.030 | EXTERNAL | | | [place] | performed at [facility], [address] | | LAB | | | | [address], | | | | | | [place] [address] | | | | + + + + + + | Leukocyte | SMALL (A)Comment: | | EXTERNAL | | | Esterase, | Testing performed at | | LAB | | | Urine | [facility], [address] | | | | | | [place] | | | | | | [address] | | | | + + + + + + | Nitrite, | NEGATIVEComment: Testing | | EXTERNAL | | | Urine | performed at [facility], [address] | | LAB | | | | [address], | | | | | | [place] [address] | | | | + + + + + + | Urobilinoge | 0.2Comment: Testing | mg/dL | EXTERNAL | | | n, Urine | performed at [facility], [address] | | LAB | | | | [address], | | | | | | [place] [address] | | | | + + + [...] | | | | | [place] [address] | | | | + + + + + + | Blood, | MODERATE (A)Comment: | | EXTERNAL | | | Urine | Testing performed at | | LAB | | | | [facility], [address] | | | | | | [place] | | | | | | [address] | | | | + + + + + + | Ketones | NEGATIVEComment: Testing | mg/dL | EXTERNAL | | | | performed at [facility], [address] | | LAB | | | | [address], | | | | | | [place] [address] | | | | + + + + + + | Bilirubin, | NEGATIVEComment: Testing | | EXTERNAL | | | Urine | performed at [facility], [address] | | LAB | | | | [address], | | | | | | [place] [address] | | | | + + + + + + | Glucose, | NEGATIVEComment: Testing | mg/dL | EXTERNAL | | | Urine | performed at [facility], [address] | | LAB | | | | [address], | | | | | | [place] [address] | | | | + + + [...] | | | | | [place] [address] | | | | + + + + + + | RBC, UA | 1-5Comment: Testing | 0 - 5 /hpf | EXTERNAL | | | | performed at [facility], [address] | | LAB | | | | [address], | | | | | | [place] [address] | | | | + + + + + + | Epithelial | 0-2Comment: Testing | /lpf | EXTERNAL | | | Cells | performed at [facility], [address] | | LAB | | | | [address], | | | | | | [place] [address] | | | | + + + + + + | Bacteria, | TRACE (A)Comment: | | EXTERNAL | | | UA | Testing performed at | | LAB | | | | [facility], [address] | | | | | | [place] | | | | | | [address] | | | | + + + + + + | Urinalysis | CULTURE TO | | EXTERNAL | | | Comments | FOLLOWComment: Testing | | LAB | | | | performed at [facility], [address] | | | | | | [address], | | | | | | [place] [address] | | | | + + + [...] EXTERNAL | | | | performed at [facility];888 | mg/dL | LAB | | | | [address];[place] | | | | | | [address] | | | | + + + [...] LAB | | C.diffAbnormal Testing performed at [facility];[address] [place] [address] | | | [id number] NAP1 BI 027 NAP1 BI | | | PRESUMPTIVE NEGATIVE Detection of 027 NAP1 BI strains of C. difficile | | | is presumptive and for epidemiological purposes and not intended to | | | guide or monitor treatment for C. difficile infections. Testing | | | performed at [facility];[address] [place] [address];[place] [address] | | + + + + +---------+ [...] EXTERNAL | | | | performed at [facility];888 | mmol/L | LAB | | | | [address];[place], [place] | | | | | | [address] | | | | + + + [...] | | | | | | at [facility];[address] | | | | | | [facility];[place] [address] | | | | + + + [...] EXTERNAL | | | | performed at [facility];888 | | LAB | | | | [address];[place], [place] | | | | | | [address] | | | | + + + [...] | | | | | | ACUTE [place] Testing | | | | | | performed at [facility];888 | | | | | | [facility];[place], [place] | | | | | | [address] | | | | + + + [...] K/uL | LAB | | | | [facility];[address] | | | | | | [place] [address] | | | | + + + + + + | RED CELL | 3.66 (L)Comment: Testing | 3.70 - 5.10 | EXTERNAL | | | COUNT | performed at [facility];888 | M/uL | LAB | | | | [address];[place] | | | | | | [address] | | | | + + + + + + | Hgb | 12.6Comment: Testing | 11.3 - 15.5 | EXTERNAL | | | | performed at [facility];888 | g/dL | LAB | | | | [address];[place] | | | | | | [address] | | | | + + + + + + | Hematocrit, | 38.9Comment: Testing | 34.0 - 46.0 % | EXTERNAL | | | POC | performed at [facility];[address] | | LAB | | | | [address];[place] | | | | | | [address] | | | | + + + + + + | MCV | 106.3 (H)Comment: | 80.0 - 100.0 fl | EXTERNAL | | | | Testing performed at | | LAB | | | | [facility];[address];[place] [address] | | | | + + + + + + | MCH | 34.3 (H)Comment: Testing | 27.0 - 34.0 pg | EXTERNAL | | | | performed at [facility];[address] | | LAB | | | | [address];[place] | | | | | | [address] | | | | + + + + + + | MCHC | 32.3Comment: Testing | 32.0 - 35.5 | EXTERNAL | | | | performed at [facility];888 | g/dL | LAB | | | | [address];[place] | | | | | | [address] | | | | + + + + + + | RDW-CV | 54.7 (H)Comment: Testing | 37 - 53 fl | EXTERNAL | | | | performed at [facility];[address] | | LAB | | | | [address];[place] | | | | | | [address] | | | | + + + + + + | Platelet | 167Comment: Testing | 150 - 400 K/uL | EXTERNAL | | | Count | performed at [facility];[address] | | LAB | | | Plasma | [address];[place] | | | | | | [address] | | | | + + + + + + | MPV | 10.6Comment: Testing | fl | EXTERNAL | | | | performed at [facility];[address] | | LAB | | | | [address];[place] | | | | | | [address] | | | | + + + + + + | Differentia | MANUALComment: Testing | | EXTERNAL | | | l Type | performed at [facility];[address] | | LAB | | | | [address];[place] | | | | | | [address] | | | | + + + + + + | Segmented | 54Comment: Testing | % | EXTERNAL | | | Neutrophils | performed at [facility];[address] | | LAB | | | Manual | [address];[place] | | | | | | [address] | | | | + + + + + + | % Bands | 18Comment: Testing | % | EXTERNAL | | | | performed at [facility];[address] | | LAB | | | | [address];[place] | | | | | | [address] | | | | + + + + + + | Lymphocytes | 16Comment: Testing | % | EXTERNAL | | | Manual | performed at [facility];[address] | | LAB | | | | [address];[place] | | | | | | [address] | | | | + + + + + + | Monocytes | 12Comment: Testing | % | EXTERNAL | | | Manual | performed at [facility];[address] | | LAB | | | | [address];[place] | | | | | | [address] | | | | + + + + + + | Absolute | 10.69 (H)Comment: | 1.90 - 7.40 | EXTERNAL | | | Neutrophils | Testing performed at | K/uL | LAB | | | | [facility];[address];[place] [address] | | | | + + + + + + | Bands | 3.56 (H)Comment: Testing | 0.00 - 0.20 | EXTERNAL | | | Manual | performed at [facility];888 | K/uL | LAB | | | | [address];[place] | | | | | | [address] | | | | + + + + + + | Absolute | 3.16Comment: Testing | 1.00 - 3.90 | EXTERNAL | | | Lymphocytes | performed at [facility];888 | K/uL | LAB | | | | [address];[place] | | | | | | [address] | | | | + + + + + + | Absolute | 2.37 (H)Comment: Testing | 0.00 - 0.80 | EXTERNAL | | | Monocytes | performed at [facility];888 | K/uL | LAB | | | | [address];[place] | | | | | | [address] | | | | + + + + + + | Platelet | ADEQUATEComment: Testing | | EXTERNAL | | | Estimate | performed at [facility];[address] | | LAB | | | | [address];[place] | | | | | | [address] | | | | + + + + + + | RBC | NORMAL PLT MORPHComment: | | EXTERNAL | | | Morphology | 1+ANISOTesting | | LAB | | | | performed at [facility];[address] | | | | | | [address];[place] | | | | | | [address] | | | | | | | [...] EXTERNAL | | | | performed at [facility];888 | uIU/mL | LAB | | | | [address];[place], [place] | | | | | | [address] | | | | + + + [...] EXTERNAL | | | | performed at [facility];[address] | | LAB | | | | [address];[place], [place] | | | | | | [address] | | | | + + + [...] | | LAB | | | | [facility];[address] | | | | | | [address];[place] [address] | | | | + + + [...] EXTERNAL | | | | performed at [facility];[address] | | LAB | | | | [address];[place], [place] | | | | | | [address] | | | | + + + [...] EXTERNAL | | | | performed at [facility];[address] | | LAB | | | | [address];[place] | | | | | | [address] | | | | + + + [...] EXTERNAL | | | | performed at [facility];888 | mmol/L | LAB | | | | [address];[place] | | | | | | [address] | | | | + + + + + + | K | 3.4 (L)Comment: Testing | 3.5 - 4.9 | EXTERNAL | | | | performed at [facility];888 | mmol/L | LAB | | | | [address];[place] | | | | | | [address] | | | | + + + + + + | Cl | 101Comment: Testing | 99 - 109 mmol/L | EXTERNAL | | | | performed at [facility];[address] | | LAB | | | | [address];[place] | | | | | | [address] | | | | + + + + + + | CO2 | 27Comment: Testing | 23 - 32 mmol/L | EXTERNAL | | | | performed at [facility];[address] | | LAB | | | | [address];[place] | | | | | | [address] | | | | + + + + + + | Anion Gap | 12Comment: Testing | 5 - 20 mmol/L | EXTERNAL | | | | performed at [facility];[address] | | LAB | | | | [address];[place] | | | | | | [address] | | | | + + + + + + | Glucose, | 106 (H)Comment: Testing | 65 - 99 mg/dL | EXTERNAL | | | Fasting | performed at [facility];[address] | | LAB | | | | [address];[place] | | | | | | [address] | | | | + + + + + + | BUN | 18Comment: Testing | 8 - 25 mg/dL | EXTERNAL | | | | performed at [facility];[address] | | LAB | | | | [address];[place] | | | | | | [address] | | | | + + + + + + | Creatinine | 1.3 (H)Comment: Testing | 0.50 - 1.00 | EXTERNAL | | | | performed at [facility];888 | mg/dL | LAB | | | | [address];[place] | | | | | | [address] | | | | + + + + + + | BUN/Creatin | 14Comment: Testing | | EXTERNAL | | | ine Ratio | performed at [facility];[address] | | LAB | | | | [address];[place] | | | | | | [address] | | | | + + + + + + | Calcium | 7.3 (L)Comment: Testing | 8.5 - 10.5 | EXTERNAL | | | | performed at [facility];888 | mg/dL | LAB | | | | [address];[place] | | | | | | [address] | | | | + + + + + + | Protein, | 7.9Comment: Testing | 6.3 - 8.2 g/dL | EXTERNAL | | | Total | performed at [facility];[address] | | LAB | | | | [address];[place] | | | | | | [address] | | | | + + + + + + | Albumin | 2.5 (L)Comment: Testing | 3.3 - 4.8 g/dL | EXTERNAL | | | | performed at [facility];[address] | | LAB | | | | [address];[place] | | | | | | [address] | | | | + + + + + + | Globulin | 5.4 (H)Comment: Testing | 1.3 - 4.9 g/dL | EXTERNAL | | | | performed at [facility];[address] | | LAB | | | | [address];[place] | | | | | | [address] | | | | + + + + + + | A/G Ratio | 0.5 (L)Comment: Testing | 1.0 - 2.4 | EXTERNAL | | | | performed at [facility];[address] | | LAB | | | | [address];[place] | | | | | | [address] | | | | + + + + + + | Bilirubin | 0.6Comment: Testing | 0.1 - 1.5 mg/dL | EXTERNAL | | | Total | performed at [facility];[address] | | LAB | | | | [address];[place] | | | | | | [address] | | | | + + + + + + | ALP, | 188 (H)Comment: Testing | 35 - 115 U/L | EXTERNAL | | | External | performed at [facility];[address] | | LAB | | | | [address];[place] | | | | | | [address] | | | | + + + + + + | AST | 51 (H)Comment: Testing | 10 - 45 U/L | EXTERNAL | | | | performed at [facility];[address] | | LAB | | | | [address];[place] | | | | | | [address] | | | | + + + + + + | ALT | 30Comment: Testing | 10 - 65 U/L | EXTERNAL | | | | performed at [facility];[address] | | LAB | | | | [address];[place] | | | | | | [address] | | | | + + + [...] | | | | | | at [facility];[address];[place] [address] | | | | + + + [...] Conversion - 01/05/2019 4:32 AM PDT COLE [id number] yearsXR | | CHEST 1 VIEW01/28/2015 2:40 [...]
--- OUTSIDE RECORDS SUMMARY | ~2019-05-29 | XMS | Encounter Summary ---
Demographics + + + | Address | [address] | | | [place] [address] | + + + | Home Phone [...] Team Providers + +------+ + | Care Physical Therapy Instructor Name | Role | Phone | + +------+ + | Yovani Santana MD | PCP | | + +------+ + Encounter Details +--------+ + + + + | Date | Type | Department | Care Team | Description | +--------+ + + + + | 01/14/ | Hospital | [facility] | Jennifer Hartmna MD | Near syncope; | | 2015 - | Encounter | [facility] | [address] | Elevated troponin; | | | | CARE FLOOR [address] | [place] [address] | Non-STEMI (non-ST | | 01/19/ | | [address] | [phone] | elevated myocardial | | 2015 | | [place], [place] | | infarction) ([facility]); | | | | [address] | | CKD (chronic kidney | | | | [phone] | | disease), | | | | | | unspecified stage; | | | | | | Leukocytosis; ZULAY | | | | | | (acute kidney | | | | | | injury) ([facility]); Liver | | | | | | replaced by | | | | | | transplant ([facility]) | +--------+ + + + + Social [...] Date of Service: 01/19/15 0753 Status: Signed Agricultural Consultant: Emma Hardy MD (Physician) Related Notes: Original Note by Emma Hardy MD (Physician) filed at 01/19/15 0800 [facility] Service: Hospitalist Physician Discharge Summary [...] history of chronic pain, on chronic methadone, 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 The patient was taken off methadone about 3 weeks prior to admission. Pre vious creatinine was 1.38 and the patient was presented at [facility] in [place] , was found to have elevated troponin of 0.55 and noted to have creatinine of 2.4 and leukoc ytosis and was transferred for kkx-RL-dfxofocme IA. HOSPITAL COURSE The patient was admitted with hai-XZ-qrzojwfux IA. Cardiology consult was obtained. She was started [...] lipid-lowerin g therapy. The patient also has dvhiu-qu-pdyebzt kidney disease, stage III. Acute renal fail [...] to have severe protein calorie malnutrition and compressed gas tester was consulted. Her blood pressures remain stable. [...] up: Ki De Jesus DO [address] [facility] [address] [place] [address] Schedule an appointment as soon as possible for a visit in 4 days Juan Ramey MD [address] [facility] [address] [facility] [address] Schedule an appointment as soon as possible for a visit in 1 week Follow up biopsy results Juju Riggins MD [address] [place] [address] Schedule an appointment as soon as [...] are the prescriptions that you need to bead picker. You may get the following medications [...] summary. This entry has been created using Cumulocity Speech Recognition software and Netatmo. The entry has been reviewed and there [...] Date of Service: 01/19/15 1300 Status: Signed Agricultural Consultant: Shaista Lin RN (Registered Nurse) Pt discharged via wheel chair on 2 L of oxygen. To [facility] in [place]. Pt alert and o rientedX4. onver alessandro Transaction, Provider Unknown - 01/19/2015 8:20 AM PDT Case Management by PHUONG Roman at 01/19/15819 Author: PHUONG Roman Service: (none) Author Type: Soft Hat Binder Filed: 01/19/15819 Date of Service: 01/19/15819 Status: Signed Agricultural Consultant: PHUONG Roman (Soft Hat Binder) Disposition: [facility] Transportation: facility van All orders, [...] 0625 Date of Service: 01/19/15412 Status: Signed Agricultural Consultant: Yady Singh RN (Registered Nurse) Patient resting quietly all night. Medicated once for all over general pain. No further com plaints. VSS. onver alessandro Transaction, Provider Unknown - 01/18/2015 3:21 PM PDT Case Management by PHUONG Roman at 01/18/15 1521 Author: PHUONG Roman Service: (none) Author Type: Soft Hat Binder Filed: 01/18/15 1521 Date of Service: 01/18/15 1521 Status: Signed Agricultural Consultant: PHUONG Roman (Soft Hat Binder) spoke w/ Will at [facility] who reports they can accept and transport pt tomorrow AM. PHUONG Roman osangela Kirk MD - 01/18/2015 3:10 PM PDT Progress Notes by Rosangela Steinberg MD at 01/18/15 1510 Author: Rosangela Steinberg MD Service: Infectious Disease Author Type: Physician Filed: 01/18/15 8313 Date of Service: 01/18/15 1510 Status: Signed Agricultural Consultant: Rosangela Steinberg MD (Physician) [facility] Service: Infectious Disease Progress Note Hospital Day: [...] diarrhea. Had initially presented to [facility] in [place] with similar complaints. Was foun d to have an elevated troponin. She was mainly admitted as a non-STEMI. Found to have a leuk ocytosis. Since patient is immunocompromised, she was started empirically on IV ceftriaxone. Chest x-ray showed no infiltrate. Patient denies any recent fevers or chills. She went to [facility] mainly becau se of syncope. Prior [...] extraluminal fluid collection abdomen pelvis without contrast [[id number]] Impression 1. Hypoinflated chest, but no evident infiltrate chest 1 view [[id number]] Impression 1. Indication for study and thus [...] Dr. Hardy Code Status: Full Code ROSANGELA SETINBERG MD 01/18/2015 ade Hardy MD - 01/18/2015 7:49 AM PDTFormatting of this note might be different from the origin al. Progress Notes by Emma Hardy MD at 01/18/1549 Author: Emma Hardy MD Service: (none) Author Type: Physician Filed: 01/18/15 1445 Date of Service: 01/18/15748 Status: Signed Agricultural Consultant: Emma Hardy MD (Physician) [facility] Service: Hospitalist Progress Note Hospital Day: LOS: [...] (HCC) ASSESSMENT & PLAN 1. Non-ST elevation IA. Possible demand ischemia. Will schedule for nuclear [...] schrader 8. Deconditioning Continue physical therapy and group home facility placement versus home PT 9. [...] AM This entry has been created using Cumulocity Speech Recognition software and Netatmo. The entry has been reviewed and there may still exist sound alike word errors. onversion Trans action, Provider Unknown - 01/18/2015 5:16 AM PDT Nurse Progress Note by Yady Singh RN at 01/18/15515 Author: Yady Singh RN Service: (none) Author Type: Registered Nurse Filed: 01/18/152104 Date of Service: 01/18/15515 Status: Signed Agricultural Consultant: Yady Singh RN (Registered Nurse) Pt taken [...] Date of Service: 01/17/15 162 Status: Signed Agricultural Consultant: Jose Maria Espinal MD (Physician) Related Notes: Original Note by Jose Maria Espinal MD (Physician) filed at 01/17/152012 [facility] Service: Hospitalist Progress Note Pt: Cole Ernst AGE/SEX: 69 y.o. female : 1945 ROOM: [address] [place] [address] History of Present Illness: " The patient [...] EMS. Patient was taken to [facility] in [place]. Susie ent was noted to have a [...] Patient had borderline blood pressure. While at [facility] with systolic in the [...] CT done several days ago while in [place]. She also stat es that her vomiting and diarrhea have significantly improved. She denies any fevers, hemat emesis, melena, bright red blood per rectum, hematuria, dysuria, she denies any leg pain or swelling. No palpitations. She states she does have a history of "kidney disease" and was told that it was secondary to cyclosporine. However, she is not seen kidney specialist [facility] e her liver transplant.".....per admitting [...] contrast. Prior study for comparison: None FINDINGS: Channel Supervisor 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 deg enerative changes [...] LA/Ao: 1.57 D-E Excursion: 2.11 cm E-F Traill: 0.09 m/s EPSS: 0.48 cm HR: 77.41 [...] TV A Billy: 0.66 m/s TV Dec Traill: 4.36 m/s2 TV Dec Time: 184.41 ms TV E Billy: 0.80 m/s TV E/A Rat io: 1.21 Silk Screen Layout Drafter: NEDRA Authenticated by: Gil Coronel MD Report [...] nutritional supplements as recommend ed by nutrition service/compressed gas tester. Jose Maria Espinal MD 01/17/2015 4:29 PM onversion Transa ction, Provider Unknown - 01/17/2015 3:15 PM PDT Case Management by PHUONG Sandhu at 01/17/15 1515 Author: PHUONG Sandhu Service: (none) Author Type: Well Cleaner Filed: 01/17/15 1518 Date of Service: 01/17/155 Status: Signed Agricultural Consultant: PHUONG Sandhu (Well Cleaner) 01/17/15 1500 Discharge Planning Evaluation Admitting Diagnosis Near syncope, elevated tropinin, non-stemi, CKD Anticipated Disposition Facility Type correction facility Medicare Important Message (MEREDITH) Given Alf [facility] Other (comment) ([facility]) BELT MACHINE OPERATOR met with Pt for discharge planning, on board with going to [facility] when medically ready. BELT MACHINE OPERATOR p/c to [facility] - will accept Pt when medically ready. [facility] (73 miles) [address] [place] [address], [place] Routing Machine Operator: Will DCP: [facility] Transportation: [facility] Facility Van - Routing Machine Operator: Will [phone] Medicare important message signed and copy in chart LUIS FOUNTAIN, Soft Hat Binder [phone] cell Rosangela Zavala MD - 01/17/2015 1:11 PM PDT Progress Notes by Rosangela Steinberg MD at 01/17/15 1311 Author: Rosangela Steinberg MD Service: Infectious Disease Author Type: Physician Filed: 01/17/15 6251 Date of Service: 01/17/15 1311 Status: Signed Agricultural Consultant: Rosangela Steinberg MD (Physician) [facility] Service: Infectious Disease Progress Note Hospital Day: [...] diarrhea. Had initially presented to [facility] in [place] with similar complaints. Was foun d to have an elevated troponin. She was mainly admitted as a non-STEMI. Found to have a leuk ocytosis. Since patient is immunocompromised, she was started empirically on IV ceftriaxone. Chest x-ray showed no infiltrate. Patient denies any recent fevers or chills. She went to [facility] mainly becau se of syncope. Prior [...] extraluminal fluid collection abdomen pelvis without contrast [[id number]] Impression 1. Hypoinflated chest, but no evident infiltrate chest 1 view [[id number]] Impression 1. Indication for study and thus [...] Status: Full Code ROSANGELA STEINBERG MD 01/17/2015 Elign Boucher MD - 01/16/2015 9:28 PM PDTFormatting of this note might be different from the or iginal. Progress Notes by Juju Riggins MD at 01/16/152127 Author: Juju Riggins MD Service: Cardiology Author Type: Physician Filed: 01/16/152137 Date of Service: 01/16/152127 Status: Signed Agricultural Consultant: Juju Riggins MD (Physician) [facility] Service: Cardiology Progress Note Hospital Day: LOS: [...] Author: PHUONG Sandhu Service: (none) Author Type: Well Cleaner Filed: 01/16/156 Date of Service: 01/16/151642 Status: Signed Agricultural Consultant: PHUONG Sandhu (Well Cleaner) 01/16/15 1600 Discharge Planning Evaluation Admitting Diagnosis Near syncope, elevated tropinin, non-stemi, CKD Anticipated Disposition Facility Type correction facility Alf Facility Other (comment) ([facility]) PHUONG received p/c from Will, admissions at [facility], states they are willi ng to accept Pt to their Alf Facility, states their house physician will not pre scribe Methadone. Will states she will start authorization process with [employer] who is Managing the Medicare benefits. Will states the first 20 days are covered at 100% then day 21 will be $100.00 a day. DCP: [facility] or Home LUIS FOUNTAIN,Soft Hat Binder [phone] cell Jose Maria Grimes MD - 01/16/2015 11:29 AM PDTFormatting of this note might be different from th e original. Progress Notes by Jose Maria Espinal MD at 01/16/15 1129 Author: Jose Maria Espinal MD Service: Hospitalist Author Type: Physician Filed: 01/17/15 1149 Date of Service: 01/16/15 1129 Status: Signed Agricultural Consultant: Jose Maria Espinal MD (Physician) Related Notes: Original Note by Jose Maria Espinal MD (Physician) filed at 01/16/15 1137 [facility] Service: Hospitalist Progress Note Pt: Cole Ernst AGE/SEX: 69 y.o. female : 1945 ROOM: [address] [place] [address] History of Present Illness: " The patient [...] EMS. Patient was taken to [facility] in [place]. Susie ent was noted to have a [...] Patient had borderline blood pressure. While at [facility] with systolic in the [...] CT done several days ago while in [place]. She also stat es that her vomiting and diarrhea have significantly improved. She denies any fevers, hemat emesis, melena, bright red blood per rectum, hematuria, dysuria, she denies any leg pain or swelling. No palpitations. She states she does have a history of "kidney disease" and was told that it was secondary to cyclosporine. However, she is not seen kidney specialist [facility] e her liver transplant.".....per admitting [...] contrast. Prior study for comparison: None FINDINGS: Channel Supervisor 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 deg enerative changes [...] LA/Ao: 1.57 D-E Excursion: 2.11 cm E-F Traill: 0.09 m/s EPSS: 0.48 cm HR: 77.41 [...] TV A Billy: 0.66 m/s TV Dec Traill: 4.36 m/s2 TV Dec Time: 184.41 ms TV E Billy: 0.80 m/s TV E/A Rat io: 1.21 Silk Screen Layout Drafter: NEDRA Authenticated by: Gil Coronel MD Report [...] pressure has been showing increasing trend since wv toprolol has been held on admission due [...] Date of Service: 01/16/15 1102 Status: Signed Agricultural Consultant: Natalio Benito PT (Physical Therapist) 01/16/15 1102 PT Last Visit PT Received On 01/16/15 Reason for Treatment Deconditioning;Other (comment) (NSTEMI; Syncope) Requires PT Follow Up Awaiting tx order Follow up PT Only? No PT Eval/Reassessment Date 01/16/15 Assistance Required 1 person Hip Hop Performers Needed No Home Environment Type of Home Apartment ground level Home Exterior Layout Entry steps none Home Interior Layout Lives on main level with bedroom/bathroom Bathroom Shower/Tub Tub/shower unit Bathroom Toilet Standard Bathroom Equipment Shower stool;Grab bars in shower/bath;Grab bars outside of shower/bath Bathroom Accessibility Other (Comment) (Small bathroom) Home Equipment Walker 4 wheeled;Cane single point Prior Function Level of [place] Modified independent with functional mobility;Modified independent wi [...] (sitting in recliner w/ call light and HAULAGE ENGINE OPERATOR present) Restraints Initially in Place No [...] Eval/Reassessment Date 01/16/15 Assistance Required 1 person Hip Hop Performers Needed No Precautions Other Precautions Fall Risk [...] support. Patient in the recli ner w/ HAULAGE ENGINE OPERATOR present at end of session, no [...] (sitting in recliner w/ call light and HAULAGE ENGINE OPERATOR present) Restraints Initially in Place No [...] Date of Service: 01/16/15 1045 Status: Signed Agricultural Consultant: Nupur Tadeo MD (Physician) [facility] Service: Infectious Disease Progress Note Hospital Day: [...] and diarrhea. Had initially presented to [facility] in [place] with similar complaints. Was found to have an elevated troponin . She was mainly admitted as a non-STEMI. Found to have a leukocytosis. Since patient is imm unocompromised, she was started empirically on IV ceftriaxone. Chest x-ray showed no infiltrate. Patient denies any recent fevers or chills. She went to [facility] mainly becau se of syncope. Prior [...] Author: PHUONG Sandhu Service: (none) Author Type: Well Cleaner Filed: 01/16/15 1042 Date of Service: 01/16/15 1030 Status: Signed Agricultural Consultant: PHUONG Sandhu (Well Cleaner) 01/16/15 1000 Discharge Planning Evaluation Admitting Diagnosis Near syncope, elevated tropinin, non-stemi, CKD Anticipated Disposition Facility Type correction facility BELT MACHINE OPERATOR met with Pt and discussed discharge planning, states she has concerns returning home at this time, as Pt resides alone. BELT MACHINE OPERATOR discussed rehab options, SNF vs Home Health vs Outpatient PT. Pt states her sister (Annie Tipton [phone] cell) assists with IADLs as Pt does not polo ojeda. Pt states she resides alone and has been doing ADLs on her own. Pt states she uses a 4WW with seat at home, then uses a cane when out of the home, stated, "I am a little vain" abou t using the 4WW in public. Pt is interested in [facility] [place], due to close proximity to her home. BELT MACHINE OPERATOR faxe d SNF referral. Pt is a [...] Pending placement at [facility] [place] LUIS FOUNTAIN, Soft Hat Binder [phone] cell Luisito Mejía - 01/16/2015 9:12 AM PDTFormatting of this note might be different from the or iginal. Progress Notes by Luisito Thomas MD at 01/16/15911 Author: Luisito Thomas MD Service: Nephrology Author Type: Physician Filed: 01/20/15 1907 Date of Service: 01/16/15911 Status: Signed Agricultural Consultant: Luisito Thomas MD (Physician) [facility] Service: NEPHROLOGY PROGRESS Note Cole Ernst 69 y.o. [id number] 4445/[id number] female [facility] Day: LOS: 2 days The patient is a 69 y.o. 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 High CIWA this shift =4. Patient c/o generalized pain, treated with PRN [place] per orders. Patient observed to be sle eping, following PRN medication and repositioning. Patient continues to be NSR-ST on tele. Vitals stable. Will continue to monitor patient. ose Maria Black MD - 01/15/2015 3:19 PM PDTFormatting of this note might be different from armando tellez original. Progress Notes by Jose Maria Espinal MD at 01/15/15 2319 Author: Jose Maria Espinal MD Service: Hospitalist Author Type: Physician Filed: 01/16/15 0925 Date of Service: 01/15/151518 Status: Signed Agricultural Consultant: Jose Maria Espinal MD (Physician) Related Notes: Original Note by Jose Maria Espinal MD (Physician) filed at 01/15/151939 [facility] Service: Hospitalist Progress Note Pt: [...] EMS. Patient was taken to [facility] in [place]. Susie ent was noted to have a [...] Patient had borderline blood pressure. While at [facility] with systolic in the [...] CT done several days ago while in [place]. She also stat es that her vomiting and diarrhea have significantly improved. She denies any fevers, hemat emesis, melena, bright red blood per rectum, hematuria, dysuria, she denies any leg pain or swelling. No palpitations. She states she does have a history of "kidney disease" and was told that it was secondary to cyclosporine. However, she is not seen kidney specialist [facility] e her liver transplant.".....per admitting [...] contrast. Prior study for comparison: None FINDINGS: Channel Supervisor 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 deg enerative changes [...] LA/Ao: 1.57 D-E Excursion: 2.11 cm E-F Traill: 0.09 m/s EPSS: 0.48 cm HR: 77.41 [...] TV A Billy: 0.66 m/s TV Dec Traill: 4.36 m/s2 TV Dec Time: 184.41 ms TV E Billy: 0.80 m/s TV E/A Rat io: 1.21 Silk Screen Layout Drafter: NEDRA Authenticated by: Gil Coronel MD Report [...] Elevated troponins, question underlying non ST elevation IA. Continue current medical th erapy. I appreciate [...] 1435 Date of Service: 01/15/151429 Status: Signed Agricultural Consultant: Ronda Michaels RD (Registered Dietitian) 01/15/15 7754 Subjective Timepoint Admit Pt c/o In to [...] Estimated Energy Needs Total Energy Estimated Needs 8574-0798 kcal Method for Estimating Needs 25-30 kcal/kg [...] Date of Service: 01/15/15 1043 Status: Signed Agricultural Consultant: Luisito Thomas MD (Physician) [facility] Service: NEPHROLOGY PROGRESS Note Cole Ernst 69 y.o. [id number] 4445/4445-1 female [facility] Day: LOS: 1 day The patient is a 69 y.o. 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 See ED Record for Physician Inter pretation. 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 [...] 01/14/152226 Date of Service: 01/14/152226 Status: Signed Agricultural Consultant: Jazz Rahman RPH (Pharmacist) Clinical Pharmacy Note - Renal Dose Adjustment Cole Ernst 69 y.o. female Ht Readings from Last 1 Encounters: 01/14/15 1.6 m (5' 3") Wt Readings from Last 1 Encounters: 01/14/15 89.6 kg (197 lb 8.5 oz) CREATININE Date Value Ref Range Status 01/14/2015 2.4* 0.50 - 1.00 mg/dL Final Comment: Testing performed at [facility];[address] [place] [address];[place] [address] CREATININE: 2.4 mg/dL ABNORMAL (01/14/15 1548) Estimated [...] PHUONG Crump LICSW Service: (none) Author Type: Soft Hat Binder Filed: 01/14/151734 Date of Service: 01/14/151733 Status: Signed Agricultural Consultant: PHUONG Crump LICSW (Soft Hat Binder) 01/14/151727 Discharge Planning Evaluation Admitting Diagnosis Near syncope, elevated tropinin, non-stemi, CKD Readmission No Living Arrangements Alone Support Systems Family members;Friends/neighbors Type of Residence Private residence House type Apartment Bathrooms on 1st Floor 1-Full Independent with ADL's Yes Independent with Mobility No-comment Home Care Services No Mental Status Oriented Power of Hand Crown Pouncer No;Other (comment) Resources Transportation issues No Prescription Plan Yes Name of Pharmacy [facility] in [place], [place] Previous home health equipment Yes Anticipated Disposition Facility Type Home Met with patient and discussed discharge planning, Pt is a 69 y.o., female who reports skyleri mack alone. Patient reports her sister, Annie Tipton, will transport her home a t discharge. Patient's PCP is: KI DE JESUS (General) Patient's insurance:b [employer] Health Plan & Medicare Coverage concerns: Medication coverage/concerns: Doreen Bedside Delivery: [facility] resources utilized / needed: TBD Assistance in [...] and consists of | | | one yellow-lnae soft tissue fragment that is 0.4 cm [...] preparation was | | | performed by [place], [facility] | | | [facility] [place] [address] (Veterinary X Ray Operator: Martin | | Tariq Galvan M.D.; NINA#: [id number]). Diagnostician: Martin Galvan | | | Pathologist [...] Lu, | | | | | | [place] [address] | | | | + + + [...] | | | | | [place] [address] | | | | + + + [...] | | | | | [place] [address] | | | | + + + + + + | K | 3.4 (L)Comment: Testing | 3.5 - 4.9 | EXTERNAL | | | | performed at [facility], [address] | mmol/L | LAB | | | | [address], | | | | | | [place] [address] | | | | + + + + + + | Cl | 101Comment: Testing | 99 - 109 mmol/L | EXTERNAL | | | | performed at [facility], [address] | | LAB | | | | [address], | | | | | | [place] [address] | | | | + + + + + + | CO2 | 28Comment: Testing | 23 - 32 mmol/L | EXTERNAL | | | | performed at [facility], [address] | | LAB | | | | [address], | | | | | | [place] [address] | | | | + + + + + + | Anion Gap | 10Comment: Testing | 5 - 20 mmol/L | EXTERNAL | | | | performed at [facility], [address] | | LAB | | | | [address], | | | | | | [place] [address] | | | | + + + + + + | Glucose, | 107 (H)Comment: Testing | 65 - 99 mg/dL | EXTERNAL | | | Fasting | performed at [facility], [address] | | LAB | | | | [address], | | | | | | [place] [address] | | | | + + + + + + | BUN | 8Comment: Testing | 8 - 25 mg/dL | EXTERNAL | | | | performed at [facility], [address] | | LAB | | | | [address], | | | | | | [place] [address] | | | | + + + + + + | Creatinine | 0.96Comment: Testing | 0.50 - 1.00 | EXTERNAL | | | | performed at [facility], [address] | mg/dL | LAB | | | | [address], | | | | | | [place] [address] | | | | + + + + + + | BUN/Creatin | 8Comment: Testing | | EXTERNAL | | | ine Ratio | performed at [facility], [address] | | LAB | | | | [address], | | | | | | [place] [address] | | | | + + + + + + | Calcium | 8.6Comment: Testing | 8.5 - 10.5 | EXTERNAL | | | | performed at [facility], [address] | mg/dL | LAB | | | | [address], | | | | | | [place] [address] | | | | + + + [...] | | | | | | [place] [address] | | | | + + + [...] + + + | COLE ERNST 1945 MD MYOCARDIAL PERFUSION SPECT - STRESS | | [...] - 01/05/2019 4:32 AM PDT COLE Corcoran [id number] MYOCARDIAL | | PERFUSION SPECT - STRESS [...] | | | | | [place] [address] | | | | + + + + + + | RED CELL | 3.41 (L)Comment: Testing | 3.70 - 5.10 | EXTERNAL | | | COUNT | performed at [facility], [address] | M/uL | LAB | | | | [address], | | | | | | [place] [address] | | | | + + + + + + | Hgb | 11.9Comment: Testing | 11.3 - 15.5 | EXTERNAL | | | | performed at [facility], [address] | g/dL | LAB | | | | [address], | | | | | | [place] [address] | | | | + + + + + + | Hematocrit, | 35.7Comment: Testing | 34.0 - 46.0 % | EXTERNAL | | | POC | performed at [facility], [address] | | LAB | | | | [address], | | | | | | [place] [address] | | | | + + + + + + | MCV | 104.6 (H)Comment: | 80.0 - 100.0 fl | EXTERNAL | | | | Testing performed at | | LAB | | | | [facility], [address] [facility] | | | | | | [place] | | | | | | [address] | | | | + + + + + + | MCH | 34.9 (H)Comment: Testing | 27.0 - 34.0 pg | EXTERNAL | | | | performed at [facility], [address] | | LAB | | | | [address], | | | | | | [place] [address] | | | | + + + + + + | MCHC | 33.3Comment: Testing | 32.0 - 35.5 | EXTERNAL | | | | performed at [facility], [address] | g/dL | LAB | | | | [address], | | | | | | [place] [address] | | | | + + + + + + | RDW-CV | 50.8Comment: Testing | 37 - 53 fl | EXTERNAL | | | | performed at [facility], [address] | | LAB | | | | [address], | | | | | | [place] [address] | | | | + + + [...] | | | | | [place] [address] | | | | + + + + + + | MPV | 12.6Comment: Testing | fl | EXTERNAL | | | | performed at [facility], [address] | | LAB | | | | [address], | | | | | | [place] [address] | | | | + + + + + + | Differentia | AUTOMATEDComment: | | EXTERNAL | | | l Type | Testing performed at | | LAB | | | | [facility], [address] | | | | | | [place] | | | | | | [address] | | | | + + + + + + | % Segmented | 40.31Comment: Testing | % | EXTERNAL | | | | performed at [facility], [address] | | LAB | | | Neutrophils | [address], | | | | | | [place] [address] | | | | + + + + + + | % | 39.78Comment: Testing | % | EXTERNAL | | | Lymphocytes | performed at [facility], [address] | | LAB | | | | [address], | | | | | | [place] [address] | | | | + + + + + + | % Monocytes | 12.51Comment: Testing | % | EXTERNAL | | | | performed at [facility], [address] | | LAB | | | | [address], | | | | | | [place] [address] | | | | + + + + + + | % | 6.45Comment: Testing | % | EXTERNAL | | | Eosinophils | performed at [facility], [address] | | LAB | | | | [address], | | | | | | [place] [address] | | | | + + + + + + | % Basophils | 0.95Comment: Testing | % | EXTERNAL | | | | performed at [facility], [address] | | LAB | | | | [address], | | | | | | [place] [address] | | | | + + + + + + | Absolute | 3.26Comment: Testing | 1.90 - 7.40 | EXTERNAL | | | Segmented | performed at [facility], [address] | K/uL | LAB | | | Neutrophils | [address], | | | | | | [place] [address] | | | | + + + + + + | Absolute | 3.21Comment: Testing | 1.00 - 3.90 | EXTERNAL | | | Lymphocytes | performed at [facility], [address] | K/uL | LAB | | | | [address], | | | | | | [place] [address] | | | | + + + + + + | Absolute | 1.01 (H)Comment: Testing | 0.00 - 0.80 | EXTERNAL | | | Monocytes | performed at [facility], [address] | K/uL | LAB | | | | [address], | | | | | | [place] [address] | | | | + + + + + + | Absolute | 0.52 (H)Comment: Testing | 0.00 - 0.50 | EXTERNAL | | | Eosinophils | performed at [facility], [address] | K/uL | LAB | | | | [address], | | | | | | [place] [address] | | | | + + + + + + | Absolute | 0.08Comment: Testing | 0.00 - 0.10 | EXTERNAL | | | Basophils | performed at [facility], [address] | K/uL | LAB | | | | [address], | | | | | | [place] [address] | | | | + + + + + + | RBC | RBC AND PLT MORPHOLOGY | | EXTERNAL | | | Morphology | APPEAR NORMALComment: | | LAB | | | | Testing performed at | | | | | | [facility], [address] [facility] | | | | | | [place] | | | | | | [address] | | | | + + + [...] | | | | | [place] [address] | | | | + + + [...] | | | | | [place] [address] | | | | + + + [...] | | | | | [place] [address] | | | | + + + + + + | K | 3.8Comment: Testing | 3.5 - 4.9 | EXTERNAL | | | | performed at [facility], [address] | mmol/L | LAB | | | | [address], | | | | | | [place] [address] | | | | + + + + + + | Cl | 101Comment: Testing | 99 - 109 mmol/L | EXTERNAL | | | | performed at [facility], [address] | | LAB | | | | [address], | | | | | | [place] [address] | | | | + + + + + + | CO2 | 27Comment: Testing | 23 - 32 mmol/L | EXTERNAL | | | | performed at [facility], [address] | | LAB | | | [address], | | | | | | [place] [address] | | | | + + + + + + | Anion Gap | 12Comment: Testing | 5 - 20 mmol/L | EXTERNAL | | | | performed at [facility], [address] | | LAB | | | | [address], | | | | | | [place] [address] | | | | + + + + + + | Glucose, | 118 (H)Comment: Testing | 65 - 99 mg/dL | EXTERNAL | | | Fasting | performed at [facility], [address] | | LAB | | | | [address], | | | | | | [place] [address] | | | | + + + + + + | BUN | 7 (L)Comment: Testing | 8 - 25 mg/dL | EXTERNAL | | | | performed at [facility], [address] | | LAB | | | | [address], | | | | | | [place] [address] | | | | + + + + + + | Creatinine | 0.79Comment: Testing | 0.50 - 1.00 | EXTERNAL | | | | performed at [facility], [address] | mg/dL | LAB | | | | [address], | | | | | | [place] [address] | | | | + + + + + + | BUN/Creatin | 9Comment: Testing | | EXTERNAL | | | ine Ratio | performed at [facility], [address] | | LAB | | | | [address], | | | | | | [place] [address] | | | | + + + + + + | Calcium | 7.5 (L)Comment: Testing | 8.5 - 10.5 | EXTERNAL | | | | performed at [facility], [address] | mg/dL | LAB | | | | [address], | | | | | | [place] [address] | | | | + + + + + + | Protein, | 7.2Comment: Testing | 6.3 - 8.2 g/dL | EXTERNAL | | | Total | performed at [facility], [address] | | LAB | | | | [address], | | | | | | [place] [address] | | | | + + + + + + | Albumin | 3.1 (L)Comment: Testing | 3.3 - 4.8 g/dL | EXTERNAL | | | | performed at [facility], [address] | | LAB | | | | [address], | | | | | | [place] [address] | | | | + + + + + + | Globulin | 4.1Comment: Testing | 1.3 - 4.9 g/dL | EXTERNAL | | | | performed at [facility], [address] | | LAB | | | | [address], | | | | | | [place] [address] | | | | + + + + + + | A/G Ratio | 0.8 (L)Comment: Testing | 1.0 - 2.4 | EXTERNAL | | | | performed at [facility], [address] | | LAB | | | | [address], | | | | | | [place] [address] | | | | + + + [...] | | | | | [place] [address] | | | | + + + [...] | | | | | [place] [address] | | | | + + + [...] | | | | | [place] [address] | | | | + + + [...] EXTERNAL | | | | performed at [facility];[address] | mmol/L | LAB | | | | [address];[place] | | | | | | [address] | | | | + + + [...] EXTERNAL | | | | performed at [facility] | | LAB | | | | [address] [facility];[place], [place] | | | | | | [address] | | | | + + + [...] EXTERNAL | | | | performed at [facility];[address] | | LAB | | | | [address];[place] | | | | | | [address] | | | | + + + [...] EXTERNAL | | | | performed at [facility];[address] | mmol/L | LAB | | | | [address];[place], [place] | | | | | | [address] | | | | + + + [...] EXTERNAL | | | | performed at [facility];[address] | | LAB | | | | [address];[place] | | | | | | [address] | | | | + + + [...] EXTERNAL | | | | performed at [facility];8 | | LAB | | | | [facility];[place], [place] | | | | | | [address] | | | | + + + [...] | | | | | [place] [address] | | | | + + + + + + | RED CELL | 3.40 (L)Comment: Testing | 3.70 - 5.10 | EXTERNAL | | | COUNT | performed at [facility], [address] | M/uL | LAB | | | | [address], | | | | | | [place] [address] | | | | + + + + + + | Hgb | 12.0Comment: Testing | 11.3 - 15.5 | EXTERNAL | | | | performed at [facility], [address] | g/dL | LAB | | | | [address], | | | | | | [place] [address] | | | | + + + + + + | Hematocrit, | 35.8Comment: Testing | 34.0 - 46.0 % | EXTERNAL | | | POC | performed at [facility], [address] | | LAB | | | | [address], | | | | | | [place] [address] | | | | + + + + + + | MCV | 105.3 (H)Comment: | 80.0 - 100.0 fl | EXTERNAL | | | | Testing performed at | | LAB | | | | [facility], [address] [facility] | | | | | | [place] | | | | | | [address] | | | | + + + + + + | MCH | 35.3 (H)Comment: Testing | 27.0 - 34.0 pg | EXTERNAL | | | | performed at [facility], [address] | | LAB | | | | [address], | | | | | | [place] [address] | | | | + + + + + + | MCHC | 33.6Comment: Testing | 32.0 - 35.5 | EXTERNAL | | | | performed at [facility], [address] | g/dL | LAB | | | | [address], | | | | | | [place] [address] | | | | + + + + + + | RDW-CV | 50.8Comment: Testing | 37 - 53 fl | EXTERNAL | | | | performed at [facility], [address] | | LAB | | | | [address], | | | | | | [place] [address] | | | | + + + + + + | Platelet | 149 (L)Comment: Testing | 150 - 400 K/uL | EXTERNAL | | | Count | performed at [facility], [address] | | LAB | | | Plasma | [address], | | | | | | [place] [address] | | | | + + + + + + | MPV | 13.0Comment: Testing | fl | EXTERNAL | | | | performed at [facility], [address] | | LAB | | | | [address], | | | | | | [place] [address] | | | | + + + + + + | Differentia | AUTOMATEDComment: | | EXTERNAL | | | l Type | Testing performed at | | LAB | | | | [facility], [address] | | | | | | [place] | | | | | | [address] | | | | + + + + + + | % Segmented | 52.08Comment: Testing | % | EXTERNAL | | | | performed at [facility], [address] | | LAB | | | Neutrophils | [address], | | | | | | [place] [address] | | | | + + + + + + | % | 32.37Comment: Testing | % | EXTERNAL | | | Lymphocytes | performed at [facility], [address] | | LAB | | | | [address], | | | | | | [place] [address] | | | | + + + + + + | % Monocytes | 10.07Comment: Testing | % | EXTERNAL | | | | performed at [facility], [address] | | LAB | | | | [address], | | | | | | [place] [address] | | | | + + + + + + | % | 4.41Comment: Testing | % | EXTERNAL | | | Eosinophils | performed at [facility], [address] | | LAB | | | | [address], | | | | | | [place] [address] | | | | + + + + + + | % Basophils | 1.07Comment: Testing | % | EXTERNAL | | | | performed at [facility], [address] | | LAB | | | | [address], | | | | | | [place] [address] | | | | + + + + + + | Absolute | 5.59Comment: Testing | 1.90 - 7.40 | EXTERNAL | | | Segmented | performed at [facility], [address] | K/uL | LAB | | | Neutrophils | [address], | | | | | | [place] [address] | | | | + + + + + + | Absolute | 3.48Comment: Testing | 1.00 - 3.90 | EXTERNAL | | | Lymphocytes | performed at [facility], [address] | K/uL | LAB | | | | [address], | | | | | | [place] [address] | | | | + + + + + + | Absolute | 1.08 (H)Comment: Testing | 0.00 - 0.80 | EXTERNAL | | | Monocytes | performed at [facility], [address] | K/uL | LAB | | | | [address], | | | | | | [place] [address] | | | | + + + + + + | Absolute | 0.47Comment: Testing | 0.00 - 0.50 | EXTERNAL | | | Eosinophils | performed at [facility], [address] | K/uL | LAB | | | | [address], | | | | | | [place] [address] | | | | + + + + + + | Absolute | 0.12 (H)Comment: Testing | 0.00 - 0.10 | EXTERNAL | | | Basophils | performed at [facility], [address] | K/uL | LAB | | | | [address], | | | | | | [place] [address] | | | | + + + + + + | RBC | NORMAL RBC MORPHComment: | | EXTERNAL | | | Morphology | Testing performed at | | LAB | | | | [facility], [address] [facility] | | | | | | [place] | | | | | | [address] | | | | + + + + + + | Differentia | 1+ GIANT PLTComment: | | EXTERNAL | | | l Comments | Testing performed at | | LAB | | | | [facility], [address] | | | | | | [place] | | | | | | [address] | | | | + + + [...] | | | | | [place] [address] | | | | + + + + + + | K | 3.2 (L)Comment: Testing | 3.5 - 4.9 | EXTERNAL | | | | performed at [facility], [address] | mmol/L | LAB | | | | [address], | | | | | | [place] [address] | | | | + + + + + + | Cl | 100Comment: Testing | 99 - 109 mmol/L | EXTERNAL | | | | performed at [facility], [address] | | LAB | | | | [address], | | | | | | [place] [address] | | | | + + + + + + | CO2 | 28Comment: Testing | 23 - 32 mmol/L | EXTERNAL | | | | performed at [facility], [address] | | LAB | | | | [address], | | | | | | [place] [address] | | | | + + + [...] | | | | | [place] [address] | | | | + + + + + + | BUN | 8Comment: Testing | 8 - 25 mg/dL | EXTERNAL | | | | performed at [facility], [address] | | LAB | | | | [address], | | | | | | [place] [address] | | | | + + + + + + | Creatinine | 0.94Comment: Testing | 0.50 - 1.00 | EXTERNAL | | | | performed at [facility], [address] | mg/dL | LAB | | | | [address], | | | | | | [place] [address] | | | | + + + + + + | BUN/Creatin | 9Comment: Testing | | EXTERNAL | | | ine Ratio | performed at [facility], [address] | | LAB | | | | [address], | | | | | | [place] [address] | | | | + + + + + + | Calcium | 7.8 (L)Comment: Testing | 8.5 - 10.5 | EXTERNAL | | | | performed at [facility], [address] | mg/dL | LAB | | | | [address], | | | | | | [place] [address] | | | | + + + + + + | Protein, | 7.8Comment: Testing | 6.3 - 8.2 g/dL | EXTERNAL | | | Total | performed at [facility], [address] | | LAB | | | | [address], | | | | | | [place] [address] | | | | + + + + + + | Albumin | 3.3Comment: Testing | 3.3 - 4.8 g/dL | EXTERNAL | | | | performed at [facility], [address] | | LAB | | | [address], | | | | | | [place] [address] | | | | + + + + + + | Globulin | 4.5Comment: Testing | 1.3 - 4.9 g/dL | EXTERNAL | | | | performed at [facility], [address] | | LAB | | | | [address], | | | | | | [place] [address] | | | | + + + + + + | A/G Ratio | 0.7 (L)Comment: Testing | 1.0 - 2.4 | EXTERNAL | | | | performed at [facility], [address] | | LAB | | | | [address], | | | | | | [place] [address] | | | | + + + + + + | Bilirubin | 0.4Comment: Testing | 0.1 - 1.5 mg/dL | EXTERNAL | | | Total | performed at [facility], [address] | | LAB | | | | [address], | | | | | | [place] [address] | | | | + + + [...] | | | | | [place] [address] | | | | + + + + + + | ALT | 24Comment: Testing | 10 - 65 U/L | EXTERNAL | | | | performed at [facility], [address] | | LAB | | | | [facility], | | | | | | [place] [address] | | | | + + + [...] W | | | | | | [facility], | | | | | | [place] [address] | | | | + + + [...] LAB | | | | performed at [facility] | | | | | | [facility];[place], [place] | | | | | | [address] | | | | + + + [...] LAB | | | | performed at [facility];[address] | | | | | | [address];[place], [place] | | | | | | [address] | | | | + + + [...] EXTERNAL | | | | performed at [facility];[address] | mmol/L | LAB | | | | [address];[place], [place] | | | | | | [address] | | | | + + + [...] EXTERNAL | | | | performed at [facility];[address] | | LAB | | | | [address];[place], [place] | | | | | | [address] | | | | + + + [...] | Testing performed at [facility], [address] | | | [place] [address] | | + + + + +---------+ [...] | | | [facility], [address] [place] [address] | | + + + + +---------+ [...] 1+ Testing performed at [facility], [address] [facility] | | | [place] [address] | | + + + + +---------+ [...] ICA Testing performed at [facility], [address] | | | [place] [address] | | + + + + +---------+ [...] at | | | | | | [facility], [address] | | | | | | [place] | | | | | | [address] [...] [place] | | | | | | [place] [address] | | | | + + + [...] EXTERNAL | | | | performed at [facility];[address] | | LAB | | | | [address];[place], [place] | | | | | | [address] | | | | + + + + + + | CMV DNA | NOT DETECTEDComment: | | EXTERNAL | | | QUANTITATIV | Unit: IU/MLTesting | | LAB | | | E INTERP | performed at [facility], [address] | | | | | | [place] | | | | | | [place] [address] | | | | + + + + + + | CMV DNA, | NOT DETECTEDComment: | | EXTERNAL | | | Qual PCR | Unit: COPIES/MLTesting | | LAB | | | | performed at [facility], [address] | | | | | | [place] | | | | | | [place] [address] | | | | + + + [...] [place] | | | | | | [address] | | | | + + + [...] | | | | | [place] [address] | | | | + + + + + + | RED CELL | 3.28 (L)Comment: Testing | 3.70 - 5.10 | EXTERNAL | | | COUNT | performed at [facility], [address] | M/uL | LAB | | | | [address], | | | | | | [place] [address] | | | | + + + + + + | Hgb | 11.6Comment: Testing | 11.3 - 15.5 | EXTERNAL | | | | performed at [facility], [address] | g/dL | LAB | | | | [address], | | | | | | [place] [address] | | | | + + + + + + | Hematocrit, | 34.5Comment: Testing | 34.0 - 46.0 % | EXTERNAL | | | POC | performed at [facility], [address] | | LAB | | | | [address], | | | | | | [place] [address] | | | | + + + + + + | MCV | 105.1 (H)Comment: | 80.0 - 100.0 fl | EXTERNAL | | | | Testing performed at | | LAB | | | | [facility], [address] | | | | | | [place] | | | | | | [address] | | | | + + + + + + | MCH | 35.3 (H)Comment: Testing | 27.0 - 34.0 pg | EXTERNAL | | | | performed at [facility], [address] | | LAB | | | | [address], | | | | | | [place] [address] | | | | + + + + + + | MCHC | 33.5Comment: Testing | 32.0 - 35.5 | EXTERNAL | | | | performed at [facility], [address] | g/dL | LAB | | | | [address], | | | | | | [place] [address] | | | | + + + + + + | RDW-CV | 50.8Comment: Testing | 37 - 53 fl | EXTERNAL | | | | performed at [facility], [address] | | LAB | | | | [address], | | | | | | [place] [address] | | | | + + + + + + | Platelet | 144 (L)Comment: Testing | 150 - 400 K/uL | EXTERNAL | | | Count | performed at [facility], [address] | | LAB | | | Plasma | [address], | | | | | | [place] [address] | | | | + + + + + + | MPV | 13.0Comment: Testing | fl | EXTERNAL | | | | performed at [facility], [address] | | LAB | | | | [address], | | | | | | [place] [address] | | | | + + + + + + | Differentia | AUTOMATEDComment: | | EXTERNAL | | | l Type | Testing performed at | | LAB | | | | [facility], [address] | | | | | | [place] | | | | | | [address] | | | | + + + + + + | % Segmented | 37.99Comment: Testing | % | EXTERNAL | | | | performed at [facility], [address] | | LAB | | | Neutrophils | [address], | | | | | | [place] [address] | | | | + + + + + + | % | 43.49Comment: Testing | % | EXTERNAL | | | Lymphocytes | performed at [facility], [address] | | LAB | | | | [address], | | | | | | [place] [address] | | | | + + + + + + | % Monocytes | 11.24Comment: Testing | % | EXTERNAL | | | | performed at [facility], [address] | | LAB | | | | [address], | | | | | | [place] [address] | | | | + + + + + + | % | 5.97Comment: Testing | % | EXTERNAL | | | Eosinophils | performed at [facility], [address] | | LAB | | | | [address], | | | | | | [place] [address] | | | | + + + + + + | % Basophils | 1.31Comment: Testing | % | EXTERNAL | | | | performed at [facility], [address] | | LAB | | | | [address], | | | | | | [place] [address] | | | | + + + + + + | Absolute | 4.01Comment: Testing | 1.90 - 7.40 | EXTERNAL | | | Segmented | performed at [facility], [address] | [address] | LAB | | | Neutrophils | [address], | | | | | | [place] [address] | | | | + + + + + + | Absolute | 4.59 (H)Comment: Testing | 1.00 - 3.90 | EXTERNAL | | | Lymphocytes | performed at [facility], [address] | LAB | | | | [address], | | | | | | [place] [address] | | | | + + + + + + | Absolute | 1.19 (H)Comment: Testing | 0.00 - 0.80 | EXTERNAL | | | Monocytes | performed at [facility], [address] | LAB | | | | [address], | | | | | | [place] [address] | | | | + + + + + + | Absolute | 0.63 (H)Comment: Testing | 0.00 - 0.50 | EXTERNAL | | | Eosinophils | performed at [facility], [address] | [address] | LAB | | | | [address], | | | | | | [place] [address] | | | | + + + + + + | Absolute | 0.14 (H)Comment: Testing | 0.00 - 0.10 | EXTERNAL | | | Basophils | performed at [facility], [address] | [address] | LAB | | | | [address], | | | | | | [place] [address] | | | | + + + + + + | RBC | NORMAL RBC MORPHComment: | | EXTERNAL | | | Morphology | Testing performed at | | LAB | | | | [facility], [address] | | | | | | [place] | | | | | | [address] | | | | + + + + + + | Differentia | 2+ GIANT PLTComment: | | EXTERNAL | | | l Comments | Testing performed at | | LAB | | | | [facility], [address] | | | | | | [place] | | | | | | [address] | | | | + + + [...] [place] | | | | | | [address] | | | | + + + [...] | | | | | [place] [address] | | | | + + + [...] | | | | | [place] [address] | | | | + + + [...] [address], | | | | | | [place] [address] | | | | + + + [...] | | | | | [place] [address] | | | | + + + + + + | K | 3.0 (L)Comment: Testing | 3.5 - 4.9 | EXTERNAL | | | | performed at [facility], [address] | mmol/L | LAB | | | | [address], | | | | | | [place] [address] | | | | + + + + + + | Cl | 104Comment: Testing | 99 - 109 mmol/L | EXTERNAL | | | | performed at [facility], [address] | | LAB | | | | [address], | | | | | | [place] [address] | | | | + + + [...] | | | | | [place] [address] | | | | + + + + + + | Glucose, | 82Comment: Testing | 65 - 99 mg/dL | EXTERNAL | | | Fasting | performed at [facility], [address] | | LAB | | | | [address], | | | | | | [place] [address] | | | | + + + + + + | BUN | 13Comment: Testing | 8 - 25 mg/dL | EXTERNAL | | | | performed at [facility], [address] | | LAB | | | | [address], | | | | | | [place] [address] | | | | + + + + + + | Creatinine | 1.01 (H)Comment: Testing | 0.50 - 1.00 | EXTERNAL | | | | performed at [facility], [address] | mg/dL | LAB | | | | [address], | | | | | | [place] [address] | | | | + + + + + + | BUN/Creatin | 13Comment: Testing | | EXTERNAL | | | ine Ratio | performed at [facility], [address] | | LAB | | | | [address], | | | | | | [place] [address] | | | | + + + + + + | Calcium | 7.7 (L)Comment: Testing | 8.5 - 10.5 | EXTERNAL | | | | performed at [facility], [address] | mg/dL | LAB | | | | [address], | | | | | | [place] [address] | | | | + + + + + + | Protein, | 7.1Comment: Testing | 6.3 - 8.2 g/dL | EXTERNAL | | | Total | performed at [facility], [address] | | LAB | | | | [address], | | | | | | [place] [address] | | | | + + + + + + | Albumin | 3.2 (L)Comment: Testing | 3.3 - 4.8 g/dL | EXTERNAL | | | | performed at [facility], [address] | | LAB | | | | [address], | | | | | | [place] [address] | | | | + + + + + + | Globulin | 3.9Comment: Testing | 1.3 - 4.9 g/dL | EXTERNAL | | | | performed at [facility], [address] | | LAB | | | | [address], | | | | | | [place] [address] | | | | + + + + + + | A/G Ratio | 0.8 (L)Comment: Testing | 1.0 - 2.4 | EXTERNAL | | | | performed at [facility], [address] | | LAB | | | | [address], | | | | | | [place] [address] | | | | + + + + + + | Bilirubin | 0.4Comment: Testing | 0.1 - 1.5 mg/dL | EXTERNAL | | | Total | performed at [facility], [address] | | LAB | | | | [address], | | | | | | [place] [address] | | | | + + + + + + | ALP, | 76Comment: Testing | 35 - 115 U/L | EXTERNAL | | | External | performed at [facility], [address] | | LAB | | | | [address], | | | | | | [place] [address] | | | | + + + + + + | AST | 26Comment: Testing | 10 - 45 U/L | EXTERNAL | | | | performed at [facility], [address] | | LAB | | | | [address], | | | | | | [place] [address] | | | | + + + + + + | ALT | 19Comment: Testing | 10 - 65 U/L | EXTERNAL | | | | performed at [facility], [address] | | LAB | | | | [address], | | | | | | [place] [address] | | | | + + + [...] Jose, | | | | | | [place] [address] | | | | + + + [...] W | | | | | | [facility], | | | | | | [place] [address] | | | | + + + [...] Urine | performed at [facility], [address] | | LAB | | | Random | [address], | | | | | | [place] [address] | | | | + + + [...] | at [facility], [address] [place] [address] | | + + + + +---------+ [...] LA/Ao: 1.57 D-E Excursion: 2.11 cm E-F Traill: 0.09 m/s | | | EPSS: 0.48 [...] TV A Billy: 0.66 m/s TV Dec Traill: 4.36 m/s2 TV Dec | | | Time: 184.41 ms TV E Billy: 0.80 m/s TV E/A Ratio: 1.21 | | | Silk Screen Layout Drafter: NEDRA Authenticated by: Gil Coronel MD Report [...] | Index (A-L): 40.51 ml/m2LAAs A2C: 24.56 [id number] A-L A2C: 76.32 mlLAESV MOD A2C: | | 73.52 mlLALs A2C: 6.71 cmLAAs A4C: 24.96 [id number] A-L A4C: 79.86 mlLAESV MOD A4C: | | 77.20 mlLALs A4C: 6.62 cmAo Diam: 2.73 cmAV Cusp: 2.27 cmLA Diam: 4.29 | | cmLA/Ao: 1.57D-E Excursion: 2.11 cmE-F Traill: 0.09 m/sEPSS: 0.48 cmHR: 77.41 | | BPMAV maxP.05 mmHgAV meanP.21 mmHgAV Vmax: 1.73 m/Sorin Vmean: 1.25 m/Sorin | | VTI: 34.68 cmAVA Vmax: 2.07 cm2AVA (VTI): 1.85 od0NOGL Dopp: 2.60 l/kfeb3AILE | | Dopp: 5.05 l/minHR: 78.81 BPMLVOT [...] | m/sTV A Billy: 0.66 m/sTV Dec Traill: 4.36 m/s2TV Dec Time: 184.41 msTV E Billy: 0.80 | | m/sTV E/A Ratio: 1.21 Silk Screen Layout Drafter: GDAuthenticated by: Gil Coronel [facility] | | Date/Time: 01-15-2015 09:12:05 IMPRESSION: 1. [...] | |D-E Excursion: 2.11 cm | |E-F Traill: 0.09 m/s | |EPSS: 0.48 cm | [...] A Billy: 0.66 m/s | |TV Dec Traill: 4.36 m/s2 | |TV Dec Time: 184.41 ms | |TV E Billy: 0.80 m/s | |TV E/A Ratio: 1.21 | | | |Silk Screen Layout Drafter: NEDRA | |Authenticated by: Gil Coronel MD [...] | EXTERNAL LAB | | performed at [facility];[place] [address] 027 NAP1 BI | | | 027 NAP1 BI PRESUMPTIVE NEGATIVE | | | Detection of 027 NAP1 BI strains of C. difficile is presumptive and | | | for epidemiological purposes and not intended to guide or monitor | | | treatment for C. difficile infections. Testing performed at [facility];[address] | | | [address];[place] [address] | | + + + + +---------+ [...] | | | | | [place] [address] | | | | + + + + + + | Complement | 19.4Comment: Testing | 10 - 40 mg/dL | EXTERNAL | | | Comp 4 | performed at [facility], [address] | | LAB | | | | [address], | | | | | | [place] [address] | | | | + + + [...] | | | | | | ACUTE IA Testing | | | | | | performed at [facility];[address] | | | | | | [address];[place], [place] | | | | | | [address] | | | | + + [...] K/uL | LAB | | | | [facility];[address];[place] [address] | | | | + + + + + + | RED CELL | 3.27 (L)Comment: Testing | 3.70 - 5.10 | EXTERNAL | | | COUNT | performed at [facility];[address] | M/uL | LAB | | | | [address];[place] | | | | | | [address] | | | | + + + + + + | Hgb | 11.2 (L)Comment: Testing | 11.3 - 15.5 | EXTERNAL | | | | performed at [facility];[address] | g/dL | LAB | | | | [address];[place] | | | | | | [address] | | | | + + + + + + | Hematocrit, | 34.4Comment: Testing | 34.0 - 46.0 % | EXTERNAL | | | POC | performed at [facility];[address] | | LAB | | | | [address];[place] | | | | | | [address] | | | | + + + + + + | MCV | 105.2 (H)Comment: | 80.0 - 100.0 fl | EXTERNAL | | | | Testing performed at | | LAB | | | | [facility];[address];[place] [address] | | | | + + + + + + | MCH | 34.2 (H)Comment: Testing | 27.0 - 34.0 pg | EXTERNAL | | | | performed at [facility];[address] | | LAB | | | | [address];[place] | | | | | | [address] | | | | + + + + + + | MCHC | 32.5Comment: Testing | 32.0 - 35.5 | EXTERNAL | | | | performed at [facility];[address] | g/dL | LAB | | | | [address];[place] | | | | | | [address] | | | | + + + + + + | RDW-CV | 50.3Comment: Testing | 37 - 53 fl | EXTERNAL | | | | performed at [facility];[address] | | LAB | | | | [address];[place] | | | | | | [address] | | | | + + + + + + | Platelet | 160Comment: Testing | 150 - 400 K/uL | EXTERNAL | | | Count | performed at [facility];[address] | | LAB | | | Plasma | [address];[place] | | | | | | [address] | | | | + + + + + + | MPV | 11.1Comment: Testing | fl | EXTERNAL | | | | performed at [facility];[address] | | LAB | | | | [address];[place] | | | | | | [address] | | | | + + + + + + | Differentia | AUTOMATEDComment: | | EXTERNAL | | | l Type | Testing performed at | | LAB | | | | [facility];[address];[place] [address] | | | | + + + + + + | % Segmented | 50.65Comment: Testing | % | EXTERNAL | | | | performed at [facility];[address] | | LAB | | | Neutrophils | [address];[place] | | | | | | [address] | | | | + + + + + + | % | 37.06Comment: Testing | % | EXTERNAL | | | Lymphocytes | performed at [facility];[address] | | LAB | | | | [address];[place] | | | | | | [address] | | | | + + + + + + | % Monocytes | 9.60Comment: Testing | % | EXTERNAL | | | | performed at [facility];[address] | | LAB | | | | [address];[place] | | | | | | [address] | | | | + + + + + + | % | 1.30Comment: Testing | % | EXTERNAL | | | Eosinophils | performed at [facility];[address] | | LAB | | | | [address];[place] | | | | | | [address] | | | | + + + + + + | % Basophils | 1.39Comment: Testing | % | EXTERNAL | | | | performed at [facility];[address] | | LAB | | | | [address];[place] | | | | | | [address] | | | | + + + + + + | Absolute | 6.64Comment: Testing | 1.90 - 7.40 | EXTERNAL | | | Segmented | performed at [facility];[address] | K/uL | LAB | | | Neutrophils | [address];[place] | | | | | | [address] | | | | + + + + + + | Absolute | 4.86 (H)Comment: Testing | 1.00 - 3.90 | EXTERNAL | | | Lymphocytes | performed at [facility];[address] | K/uL | LAB | | | | [address];[place] | | | | | | [address] | | | | + + + + + + | Absolute | 1.26 (H)Comment: Testing | 0.00 - 0.80 | EXTERNAL | | | Monocytes | performed at [facility];[address] | K/uL | LAB | | | | [address];[place] | | | | | | [address] | | | | + + + + + + | Absolute | 0.17Comment: Testing | 0.00 - 0.50 | EXTERNAL | | | Eosinophils | performed at [facility];[address] | K/uL | LAB | | | | [address];[place] | | | | | | [address] | | | | + + + + + + | Absolute | 0.18 (H)Comment: Testing | 0.00 - 0.10 | EXTERNAL | | | Basophils | performed at [facility];[address] | K/uL | LAB | | | | [address];[place] | | | | | | [address] | | | | + + + [...] EXTERNAL | | | | performed at [facility];[address] | | LAB | | | | [address];[place], [place] | | | | | | [address] | | | | + + + [...] LAB | | | | performed at [facility];[address] | | | | | | [address];[place], [place] | | | | | | [address] | | | | + + + [...] EXTERNAL | | | | performed at [facility];[address] | mmol/L | LAB | | | | [address];[place] | | | | | | [address] | | | | + + + + + + | K | 3.7Comment: SLT | 3.5 - 4.9 | EXTERNAL | | | | HEMOLYSISTesting | mmol/L | LAB | | | | performed at [facility];[address] | | | | | | [address];[place] | | | | | | [address] | | | | + + + + + + | Cl | 110 (H)Comment: Testing | 99 - 109 mmol/L | EXTERNAL | | | | performed at [facility];[address] | | LAB | | | | [address];[place] | | | | | | [address] | | | | + + + + + + | CO2 | 24Comment: Testing | 23 - 32 mmol/L | EXTERNAL | | | | performed at [facility];[address] | | LAB | | | | [address];[place] | | | | | | [address] | | | | + + + + + + | Anion Gap | 13Comment: Testing | 5 - 20 mmol/L | EXTERNAL | | | | performed at [facility];[address] | | LAB | | | | [address];[place] | | | | | | [address] | | | | + + + + + + | Glucose, | 109 (H)Comment: Testing | 65 - 99 mg/dL | EXTERNAL | | | Fasting | performed at [facility];[address] | | LAB | | | | [address];[place] | | | | | | [address] | | | | + + + + + + | BUN | 24Comment: Testing | 8 - 25 mg/dL | EXTERNAL | | | | performed at [facility];[address] | | LAB | | | | [address];[place] | | | | | | [address] | | | | + + + + + + | Creatinine | 1.7 (H)Comment: Testing | 0.50 - 1.00 | EXTERNAL | | | | performed at [facility];[address] | mg/dL | LAB | | | | [address];[place] | | | | | | [address] | | | | + + + + + + | BUN/Creatin | 14Comment: Testing | | EXTERNAL | | | ine Ratio | performed at [facility];[address] | | LAB | | | | [address];[place] | | | | | | [address] | | | | + + + + + + | Calcium | 7.4 (L)Comment: Testing | 8.5 - 10.5 | EXTERNAL | | | | performed at [facility];[address] | mg/dL | LAB | | | | [address];[place] | | | | | | [address] | | | | + + + + + + | Protein, | 7.0Comment: Testing | 6.3 - 8.2 g/dL | EXTERNAL | | | Total | performed at [facility];[address] | | LAB | | | | [address];[place] | | | | | | [address] | | | | + + + + + + | Albumin | 2.6 (L)Comment: Testing | 3.3 - 4.8 g/dL | EXTERNAL | | | | performed at [facility];[address] | | LAB | | | | [address];[place] | | | | | | [address] | | | | + + + + + + | Globulin | 4.3Comment: Testing | 1.3 - 4.9 g/dL | EXTERNAL | | | | performed at [facility];[address] | | LAB | | | | [address];[place] | | | | | | [address] | | | | + + + + + + | A/G Ratio | 0.6 (L)Comment: Testing | 1.0 - 2.4 | EXTERNAL | | | | performed at [facility];[address] | | LAB | | | | [address];[place] | | | | | | [address] | | | | + + + + + + | Bilirubin | 0.4Comment: Testing | 0.1 - 1.5 mg/dL | EXTERNAL | | | Total | performed at [facility];[address] | | LAB | | | | [address];[place] | | | | | | [address] | | | | + + + + + + | ALP, | 92Comment: Testing | 35 - 115 U/L | EXTERNAL | | | External | performed at [facility];[address] | | LAB | | | | [address];[place] | | | | | | [address] | | | | + + + + + + | AST | 35Comment: SLT | 10 - 45 U/L | EXTERNAL | | | | HEMOLYSISTesting | | LAB | | | | performed at [facility];[address] | | | | | | [address];[place] | | | | | | [address] | | | | + + + + + + | ALT | 29Comment: Testing | 10 - 65 U/L | EXTERNAL | | | | performed at [facility];[address] | | LAB | | | | [address];[place] | | | | | | [address] | | | | + + + [...] | | | | | | at [facility];[address] [facility] | | | | | | Blvd;[place] [address] | | | | + + + [...] EXTERNAL | | | | performed at [facility];888 | uIU/mL | LAB | | | | [address];[place], [place] | | | | | | [address] | | | | + + + [...] | | | | | | ACUTE IA Testing | | | | | | performed at [facility];[address] | | | | | | [address];[place], [place] | | | | | | [address] | | | | + + + [...] at [facility], | | | [address] [place] [address] | | + + + + +---------+ [...] | | study for comparison: None FINDINGS: Channel Supervisor 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 | | | [...] study | | for comparison: None FINDINGS: Channel Supervisor 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 degenerative changes of [...] NEGATIVE Testing | | | performed at [facility];[address] [place] [address];[place] [address] | | + + + + +---------+ [...] | | | | | | at [facility];[address] [place] [address] | | | | | | [facility];[place] [address] | | | | + + + [...] EXTERNAL | | | | performed at [facility];[address] | | LAB | | | | [address];[place], [place] | | | | | | [address] | | | | + + + [...] EXTERNAL | | | | performed at [facility] | | LAB | | | | [address];[place] | | | | | | [address] | | | | + + + [...] EXTERNAL | | | | performed at [facility];[address] | mmol/L | LAB | | | | [address];[place], [place] | | | | | | [address] | | | | + + + [...] | | | | | [place] [address] | | | | + + + [...] [place] | | | | | | [address] | | | | + + + [...] (500), | | | | | | supervising editor trailer Shala Gramajo | | | | | [...] EXTERNAL | | | | performed at [facility];[address] | | LAB | | | | [address];[place] | | | | | | [address] | | | | + + + [...] EXTERNAL | | | | performed at [facility];[address] | | LAB | | | | [facility], [place] | | | | | | [address] | | | | + + + [...] LAB | | | | performed at [facility] | | | | | | [address];[place], [place] | | | | | | [address] | | | | + + + [...] EXTERNAL | | | | performed at [facility];[address] | | LAB | | | | [address];[place], [place] | | | | | | [address] | | | | + + + [...] EXTERNAL | | | | performed at [facility];[address] | | LAB | | | | [address];[place] | | | | | | [address] | | | | + + + [...] K/uL | LAB | | | | [facility];[address] | | | | | | [address];[place] [address] | | | | + + + + + + | RED CELL | 4.17Comment: Testing | 3.70 - 5.10 | EXTERNAL | | | COUNT | performed at [facility];[address] | M/uL | LAB | | | | [address];[place] | | | | | | [address] | | | | + + + + + + | Hgb | 14.6Comment: Testing | 11.3 - 15.5 | EXTERNAL | | | | performed at [facility];888 | g/dL | LAB | | | | [address];[place] | | | | | | [address] | | | | + + + + + + | Hematocrit, | 42.7Comment: Testing | 34.0 - 46.0 % | EXTERNAL | | | POC | performed at [facility];[address] | | LAB | | | | [address];[place] | | | | | | [address] | | | | + + + + + + | MCV | 102.3 (H)Comment: | 80.0 - 100.0 fl | EXTERNAL | | | | Testing performed at | | LAB | | | | [facility];[address] | | | | | | [address];[place] [address] | | | | + + + + + + | MCH | 35.0 (H)Comment: Testing | 27.0 - 34.0 pg | EXTERNAL | | | | performed at [facility];[address] | | LAB | | | | [address];[place] | | | | | | [address] | | | | + + + + + + | MCHC | 34.2Comment: Testing | 32.0 - 35.5 | EXTERNAL | | | | performed at [facility];888 | g/dL | LAB | | | | [address];[place] | | | | | | [address] | | | | + + + + + + | RDW-CV | 49.9Comment: Testing | 37 - 53 fl | EXTERNAL | | | | performed at [facility];[address] | | LAB | | | | [address];[place] | | | | | | [address] | | | | + + + + + + | Platelet | 209Comment: Testing | 150 - 400 K/uL | EXTERNAL | | | Count | performed at [facility];[address] | | LAB | | | Plasma | [address];[place] | | | | | | [address] | | | | + + + + + + | MPV | 11.1Comment: Testing | fl | EXTERNAL | | | | performed at [facility];[address] | | LAB | | | | [address];[place] | | | | | | [address] | | | | + + + + + + | RBC | 1+Comment: GIANT | | EXTERNAL | | | Morphology | PLATELETS1+MACROTesting | | LAB | | | | performed at [facility];[address] | | | | | | [address];[place] | | | | | | [address] | | | | | |Testing performed at [facility];[address];[place] [address] | | | | | | | | | | + + + + + + | Differentia | MANUALComment: Testing | | EXTERNAL | | | l Type | performed at [facility];[address] | | LAB | | | | [address];[place] | | | | | | [address] | | | | + + + + + + | Segmented | 58Comment: Testing | % | EXTERNAL | | | Neutrophils | performed at [facility];[address] | | LAB | | | Manual | [address];[place] | | | | | | [address] | | | | + + + + + + | Lymphocytes | 32Comment: Testing | % | EXTERNAL | | | Manual | performed at [facility];[address] | | LAB | | | | [address];[place] | | | | | | [address] | | | | + + + + + + | Monocytes | 9Comment: Testing | % | EXTERNAL | | | Manual | performed at [facility];[address] | | LAB | | | | [address];[place] | | | | | | [address] | | | | + + + + + + | Eosinophils | 1Comment: Testing | % | EXTERNAL | | | Manual | performed at [facility];[address] | | LAB | | | | [address];[place] | | | | | | [address] | | | | + + + + + + | Absolute | 9.39 (H)Comment: Testing | 1.90 - 7.40 | EXTERNAL | | | Neutrophils | performed at [facility];888 | K/uL | LAB | | | | [address];[place] | | | | | | [address] | | | | + + + + + + | Absolute | 5.18 (H)Comment: Testing | 1.00 - 3.90 | EXTERNAL | | | Lymphocytes | performed at [facility];[address] | K/uL | LAB | | | | [address];[place] | | | | | | [address] | | | | + + + + + + | Absolute | 1.46 (H)Comment: Testing | 0.00 - 0.80 | EXTERNAL | | | Monocytes | performed at [facility];[address] | K/uL | LAB | | | | [address];[place] | | | | | | [address] | | | | + + + + + + | Absolute | 0.16Comment: Testing | 0.00 - 0.50 | EXTERNAL | | | Eosinophils | performed at [facility];888 | K/uL | LAB | | | | [address];[place] | | | | | | [address] | | | | + + + + + + | Na | 140Comment: Testing | 135 - 143 | EXTERNAL | | | | performed at [facility];[address] | mmol/L | LAB | | | | [address];[place] | | | | | | [address] | | | | + + + + + + | K | 2.8 (L)Comment: Testing | 3.5 - 4.9 | EXTERNAL | | | | performed at [facility];888 | mmol/L | LAB | | | | [address];[place] | | | | | | [address] | | | | + + + + + + | Cl | 100Comment: Testing | 99 - 109 mmol/L | EXTERNAL | | | | performed at [facility] | | LAB | | | | [address];[place] | | | | | | [address] | | | | + + + + + + | CO2 | 29Comment: Testing | 23 - 32 mmol/L | EXTERNAL | | | | performed at [facility] | | LAB | | | | [address];[place] | | | | | | [address] | | | | + + + + + + | Anion Gap | 14Comment: Testing | 5 - 20 mmol/L | EXTERNAL | | | | performed at [facility] | | LAB | | | | [address];[place] | | | | | | [address] | | | | + + + + + + | Glucose, | 107 (H)Comment: Testing | 65 - 99 mg/dL | EXTERNAL | | | Fasting | performed at [facility] | | LAB | | | | [address];[place] | | | | | | [address] | | | | + + + + + + | BUN | 28 (H)Comment: Testing | 8 - 25 mg/dL | EXTERNAL | | | | performed at [facility] | | LAB | | | | [address];[place] | | | | | | [address] | | | | + + + + + + | Creatinine | 2.4 (H)Comment: Testing | 0.50 - 1.00 | EXTERNAL | | | | performed at [facility] | mg/dL | LAB | | | | [address];[place] | | | | | | [address] | | | | + + + + + + | BUN/Creatin | 12Comment: Testing | | EXTERNAL | | | ine Ratio | performed at [facility] | | LAB | | | | [address];[place] | | | | | | [address] | | | | + + + + + + | Calcium | 8.1 (L)Comment: Testing | 8.5 - 10.5 | EXTERNAL | | | | performed at [facility] | mg/dL | LAB | | | | [address];[place] | | | | | | [address] | | | | + + + + + + | Protein, | 9.3 (H)Comment: Testing | 6.3 - 8.2 g/dL | EXTERNAL | | | Total | performed at [facility] | | LAB | | | | [address];[place] | | | | | | [address] | | | | + + + + + + | Albumin | 3.3Comment: Testing | 3.3 - 4.8 g/dL | EXTERNAL | | | | performed at [facility] | | LAB | | | | [address];[place] | | | | | | [address] | | | | + + + + + + | Globulin | 6.0 (H)Comment: Testing | 1.3 - 4.9 g/dL | EXTERNAL | | | | performed at [facility] | | LAB | | | | [address];[place] | | | | | | [address] | | | | + + + + + + | A/G Ratio | 0.5 (L)Comment: Testing | 1.0 - 2.4 | EXTERNAL | | | | performed at [facility] | | LAB | | | | [address];[place] | | | | | | [address] | | | | + + + + + + | Bilirubin | 0.4Comment: Testing | 0.1 - 1.5 mg/dL | EXTERNAL | | | Total | performed at [facility] | | LAB | | | | [address];[place] | | | | | | [address] | | | | + + + + + + | ALP, | 129 (H)Comment: Testing | 35 - 115 U/L | EXTERNAL | | | External | performed at [facility] | | LAB | | | | [address];[place] | | | | | | [address] | | | | + + + + + + | AST | 39Comment: Testing | 10 - 45 U/L | EXTERNAL | | | | performed at [facility] | | LAB | | | | [address];[place] | | | | | | [address] | | | | + + + + + + | ALT | 38Comment: Testing | 10 - 65 U/L | EXTERNAL | | | | performed at [facility] | | LAB | | | | [address];[place] | | | | | | [address] | | | | + + + [...] | | | | | | at [facility] | | | | | | [address];[place] [address] | | | | + + + + + + | CK, Total | 151Comment: Testing | 30 - 240 U/L | EXTERNAL | | | | performed at [facility] | | LAB | | | | [address];[place] | | | | | | [address] | | | | + + + [...] | | | | | performed at [facility] | | | | | [address];[place] | | | | | | [address] | | | | + + + + + + | aPTT, | 26Comment: Testing | 23 - 32 seconds | EXTERNAL | | | Patient | performed at [facility];[address] | | LAB | | | | [address];[place] | | | | | | [address] | | | | + + + + + + | CK-MB | 3.9 (H)Comment: Testing | 0.5 - 3.6 ng/mL | EXTERNAL | | | | performed at [facility];[address] | | LAB | | | | [address];[place] | | | | | | [address] | | | | + + + [...] | | | | | | ACUTE IA Testing | | | | | | performed at [facility];[address] | | | | | | [facility];[place], [place] | | | | | | [address] | | | | + + + [...]
[~2019-05-29 15:13] MED LIST changes: +LASIX20 MG PO
--- OUTSIDE RECORDS SUMMARY | 2019-05-29 15:16 | XMS ---
PreManage Notification: COLE ERNST Security User Experience Designer Events No recent Security Events currently on file CRITERIA MET - [facility] - Has Care Guidelines - PDMP - [facility] - 2 Visits in 30 Days CARE PROVIDERS Name Unknown Group Home Facility Current PHONE: [phone] Cindy Meyer Production Broacher/Accounting Administrator 01/17/2019-Current PHONE: [phone] [facility] 02/06/2018-Current PHONE: Unknown Cindy Meyer [facility] 01/17/2019-Current PHONE: [phone] Anu has no Care Guidelines for this patient. Care History Medical/Surgical 02/06/2018 [facility] - Patient is currently established with [facility]. If patient is seen in the ED during business hours. Please contact [facility]Ws at [facility]. Care Recommendation: This patient has had [...] providing care. E.D. VISIT COUNT (12 MO.) 7 [facility]. TOTAL 7 NOTE: Visits indicate total known visits. ED/UCC VISIT TRACKING (12 MO.) 05/29/2019 15:14 [facility] TYPE: Emergency COMPLAINT: - HIGH HEARTRATE 05/19/2019 06:17 [facility] TYPE: Emergency COMPLAINT: - SOB DIAGNOSES: - Unspecified atrial fibrillation - Chronic kidney disease, unspecified - group home (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 - Shortness of breath - Heart failure, unspecified - Allergy status to narcotic agent status - Hypothyroidism, unspecified - Other nursing home (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 05/09/2019 11:17 [facility] TYPE: Emergency COMPLAINT: - AFIB 05/06/2019 15:13 [facility] TYPE: Emergency COMPLAINT: - HEART PALPITATIONS DIAGNOSES: - Hypothyroidism, unspecified - Allergy status to narcotic agent status - Other nursing home (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 - Dyspnea, unspecified - [...] nicotine dependence - Unspecified atrial fibrillation - group home (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 - Chronic kidney disease, unspecified - Other nursing home (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 - Hypothyroidism, unspecified - Overexertion from prolonged static or awkward postures, init 06/04/2018 09:27 [facility] TYPE: Emergency COMPLAINT: - WEAKNESS/COUGH INPATIENT VISIT TRACKING (12 MO.) 05/09/2019 11:18 [facility] TYPE: Observation COMPLAINT: - AFIB DIAGNOSES: - Chronic respiratory failure with hypoxia - Other nursing home (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 - termite treater helper (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) use of opiate analgesic - Liver [...] right foot, init - [facility] ([facility] as place - Other nursing home (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 - Unspecified fall, initial encounter - Acute kidney failure, unspecified - Oth bacterial agents as the cause of diseases classd elswhr - Chronic kidney disease, unspecified - Unsp place in [facility] residence as place - Hypothyroidism, unspecified - Urinary tract infection, site not specified - Ot bacterial agents as the cause of diseases [...] coagulation profile - Scoliosis, unspecified - Other director long term care (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 - Adverse effect of [...] supplemental oxygen - Dependence on supplemental oxygen [email or web address]
--- NOTE | 2019-05-29 18:03 | EKG ---
[facility] [address] [facility] [place] [address] Signed Atrial fibrillation with rapid ventricular response Nonspecific ST abnormality Abnormal ECG When compared with ECG of 19-MAY-2019 06:26, Atrial fibrillation has replaced Sinus rhythm Vent. rate has increased BY 70 BPM T wave amplitude has decreased in Lateral leads Confirmed by CASSANDRA FLETCHER MD ([id number]) on 05/29/2019 6:03:39 PM Electronically Signed By: CASSANRDA FLETCHER MD 05/29/19 1803 PATIENT NAME: COLE ERNST Electrocardiogram DATE OF : 45 PHYSICIAN: CASSANDRA FLETCHER MD REPORT #: [id number] REPORT IS CONFIDENTIAL AND NOT TO BE RELEASED WITHOUT AUTHORIZATION
== END 2019-05-29 17:15 | disposition home or self-care (01) ==
LOC: ED 15:13
DX: I48.91 Unspecified atrial fibrillation (principal); N18.9 Chronic kidney disease, unspecified; E03.9 Hypothyroidism, unspecified; Z88.5 Allergy status to narcotic agent; Z79.899 Other long term (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; Z79.01 Long term (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
CPT/HCPCS: 71045; 80053; 83880; 84484; 85025; 93005; 93010; 96374; 99285-25

== ENCOUNTER 2019-06-03 16:59 | Inpatient (IN) | payer MEDICARE, OTHER ==
[~2019-06-03] VITALS: Ht 157.5 cm; Wt 94.7 kg
--- OUTSIDE RECORDS SUMMARY | ~2019-06-03 | XMS | Encounter Summary ---
Demographics + + + | Address | [address] | | | [place] [address] | + + + | Home Phone | | + + + | Preferred Language | Unknown | + + + | Marital Status | Unknown | + + + | Evangelical Affiliation | Unknown | + + + | Race | Unknown | + + + | Ethnic Group | Unknown | + + + Author + + + | Author | [facility] | + + + | Organization | [facility] | + + + | Address | Unknown | + + + | Phone | Unavailable | + + + Care Team Providers + +------+ + | Care Spring Up Supervisor Name | Role | Phone | + +------+ + PCP | Unavailable | + +------+ + Reason for Visit +--------+ + | Reason | Comments | +--------+ + | Sepsis | | +--------+ + Encounter Details +--------+ + + + + | Date | Type | Department | Care Team | Description | +--------+ + + + + | 01/28/ | Emergency | [facility] Emergency | | | | 2014 | | Department [address] | | | | | [address] | | | | | | [facility] | | | | | | [place], [place] | | | | | | [address] | | | | | | [phone] | | | +--------+ + + + [...]
--- OUTSIDE RECORDS SUMMARY | ~2019-06-03 | XMS | Encounter Summary ---
Demographics + + + | Address | [address] | | | [place] [address] | + + + | Home Phone | | + + + | Preferred Language | Unknown | + + + | Marital Status | Single | + + + | Church Affiliation | 1041 | + + + | Race | Unknown | + + + | Ethnic Group | Unknown | + + + Author + + + | Author | [facility] | | | and [place] | + + + | Organization | [facility] | | | [...] Team Providers + +------+ + | Care Vat Overhauler Name | Role | Phone | + +------+ + | Yovani Santana MD | PCP | | + +------+ + Encounter Details +--------+ + + + + | Date | Type | Department | Care Team | Description | +--------+ + + + + | 02/20/ | Abstract | [facility] | Gary Melendez, | Hypoxemia (Primary | | 2014 | | PULMONARY [address] | MD [address] | Dx) | | | | [place], | [place], [place] | | | | | [place] [address] | [address] | | | | | [phone] | | | +--------+ + + + [...] + + documented as of this encounter Last Filed Vital Signs + + + + + | Vital Sign | Reading | Time Taken | Comments | + + + + + | Blood Pressure | 130/78 | 01/02/2014 11:23 AM | | | | | PDT | | + + + + + | Pulse | 64 | 01/02/2014 11:23 AM | | | | | PDT | | + + + + + | Temperature | - | - | | + + + + + | Respiratory Rate | 16 | 01/02/2014 11:23 AM | | | | | PDT | | + + + + + | Oxygen Saturation | - | - | | + + + + + | Inhaled Oxygen | - | - | | | Concentration | | | | + + + + + | Weight | 98 kg (216 lb) | 01/02/2014 11:23 AM | | | | | PDT | | + + + + + | Height | 160 cm (5' 3") | 01/02/2014 11:23 AM | | | | | PDT | | + + + + + | Body Mass Index | 38.26 | 01/02/2014 11:23 AM | | | | | PDT | | + + + + + documented in this encounter Plan of Treatment Not on filedocumented as of this encounter Visit Diagnoses + + | Diagnosis | + + | Hypoxemia - Primary | + + documented in this encounter
--- OUTSIDE RECORDS SUMMARY | ~2019-06-03 | XMS | Encounter Summary ---
Demographics + + + | Address | [address] | | | [place] [address] | + + + | Home Phone | | + + + | Preferred Language | Unknown | + + + | Marital Status | Single | + + + | Quaker Affiliation | 1041 | + + + | Race | Unknown | + + + | Ethnic Group | Unknown | + + + Author + + + | Author | [facility] | | | and [place] | + + + | Organization | [facility] | | | and [...] Team Providers + +------+ + | Care Javascript Application Developer Name | Role | Phone | + +------+ + | Rick Osorio DO | PCP | | + +------+ + Encounter Details +--------+ + + + + | Date | Type | Department | Care Team | Description | +--------+ + + + + | 06/04/ | Orders Only | [facility] | Emil Oliva MD | | | 2013 | | NEPHROLOGY [place] | [address] | | | | | [address] | [address] [place], [place] | | | | | [address] [place], [place] | [address] | | | | | [address] | | | | | | [phone] | | | +--------+ + + + [...] | | | LAB | | | [facility] | | | | | + +-------+ [...]
--- OUTSIDE RECORDS SUMMARY | ~2019-06-03 | XMS | Encounter Summary ---
Demographics + + + | Address | [address] | | | [place] [address] | + + + | Home Phone | | + + + | Preferred Language | Unknown | + + + | Marital Status | Single | + + + | Catholic Affiliation | 1041 | + + + | Race | Unknown | + + + | Ethnic Group | Unknown | + + + Author + + + | Author | [facility] | | | and [place] | + + + | Organization | [facility] | | [...] Team Providers + +------+ + | Care Bunk House Worker Name | Role | Phone | + +------+ + | Yovani Santana MD | PCP | | + +------+ + Encounter Details +--------+ + + + + | Date | Type | Department | Care Team | Description | +--------+ + + + + | 01/14/ | Hospital | [facility] | Jennifer Hartman MD | Near syncope; | | 2015 - | Encounter | [facility] | [address] | Elevated troponin; | | | | CARE FLOOR [address] | [place] [address] | Non-STEMI (non-ST | | 01/19/ | | [address] | [phone] | elevated myocardial | | 2015 | | [place], [place] | | infarction) ([facility]); | | | | [address] | | CKD (chronic kidney | | | | [phone] | | disease), | | | | | | unspecified stage; | | | | | | Leukocytosis; ZULAY | | | | | | (acute kidney | | | | | | injury) ([facility]); Liver | | | | | | replaced by | | | | | | transplant ([facility]) | +--------+ + + + + Social [...] Date of Service: 01/19/15 0753 Status: Signed Integrated Circuit Design Engineer: Emma Hardy MD (Physician) Related Notes: Original Note by Emma Hardy MD (Physician) filed at 01/19/15 0800 [facility] Service: Hospitalist Physician Discharge Summary Patient ID: [...] history of chronic pain, on chronic methadone, stratigrapher denny kidney disease, stage III, presented with generalized weakness, acute renal failure, and elevate troponin. The patient was taken off methadone about 3 weeks prior to admission. Pre vious creatinine was 1.38 and the patient was presented at [facility] in [place] , was found to have elevated troponin of 0.55 and noted to have creatinine of 2.4 and leukoc ytosis and was transferred for jdx-CF-vnpmzoqac AZ. HOSPITAL COURSE The patient was admitted with gfn-DP-bwttcpqre AZ. Cardiology consult was obtained. She was started [...] lipid-lowerin g therapy. The patient also has ihaho-oq-gbpojcu kidney disease, stage III. Acute renal fail [...] to have severe protein calorie malnutrition and harness mender was consulted. Her blood pressures remain stable. [...] Follow up: Ki De Jesus DO [address] [facility] [address] [place] [address] Schedule an appointment as soon as possible for a visit in 4 days Juan Ramey MD [address] [facility] [address] [facility] [address] Schedule an appointment as soon as possible for a visit in 1 week Follow up biopsy results Juju Riggins MD [address] [place] [address] Schedule an appointment as soon as [...] are the prescriptions that you need to sisal picker. You may get the following medications from [...] summary. This entry has been created using Spring Metrics Speech Recognition software and Mapbox. The entry has been reviewed and there [...] Date of Service: 01/19/15 1300 Status: Signed Integrated Circuit Design Engineer: Shaista Lin RN (Registered Nurse) Pt discharged via wheel chair on 2 L of oxygen. To [facility] in [place]. Pt alert and o rientedX4. onver alessandro Transaction, Provider Unknown - 01/19/2015 8:20 AM PDT Case Management by PHUONG Roman at 01/19/15819 Author: PHUONG Roman Service: (none) Author Type: Mosaic Layer Filed: 01/19/15819 Date of Service: 01/19/15819 Status: Signed Integrated Circuit Design Engineer: PHUONG Roman (Mosaic Layer) Disposition: [facility] Transportation: facility van All orders, signed [...] 0625 Date of Service: 01/19/15412 Status: Signed Integrated Circuit Design Engineer: Yady Singh RN (Registered Nurse) Patient resting quietly all night. Medicated once for all over general pain. No further com plaints. VSS. onver alessandro Transaction, Provider Unknown - 01/18/2015 3:21 PM PDT Case Management by PHUONG Roman at 01/18/15 1521 Author: PHUONG Roman Service: (none) Author Type: Mosaic Layer Filed: 01/18/15 1521 Date of Service: 01/18/15 1521 Status: Signed Integrated Circuit Design Engineer: PHUONG Roman (Mosaic Layer) spoke w/ Will at [facility] who reports they can accept and transport pt tomorrow AM. PHUONG Roman osangela Kirk MD - 01/18/2015 3:10 PM PDT Progress Notes by Rosangela Steinberg MD at 01/18/15 1510 Author: Rosangela Steinberg MD Service: Infectious Disease Author Type: Physician Filed: 01/18/15 7928 Date of Service: 01/18/15 1510 Status: Signed Integrated Circuit Design Engineer: Rosangela Steinberg MD (Physician) [facility] Service: Infectious Disease Progress Note Hospital Day: [...] vomiting and diarrhea. Had initially presented to [facility] in [place] with similar complaints. Was foun d to have an elevated troponin. She was mainly admitted as a non-STEMI. Found to have a leuk ocytosis. Since patient is immunocompromised, she was started empirically on IV ceftriaxone. Chest x-ray showed no infiltrate. Patient denies any recent fevers or chills. She went to [facility] mainly becau se of syncope. Prior to [...] extraluminal fluid collection abdomen pelvis without contrast [[id number]] Impression 1. Hypoinflated chest, but no evident infiltrate chest 1 view [[id number]] Impression 1. Indication for study and thus [...] 1445 Date of Service: 01/18/15748 Status: Signed Integrated Circuit Design Engineer: Emma Hardy MD (Physician) [facility] Service: Hospitalist Progress Note Hospital Day: LOS: [...] (HCC) ASSESSMENT & PLAN 1. Non-ST elevation AZ. Possible demand ischemia. Will schedule for nuclear [...] schrader 8. Deconditioning Continue physical therapy and care home facility placement versus home PT 9. Chronic [...] AM This entry has been created using Spring Metrics Speech Recognition software and Mapbox. The entry has been reviewed and there may still exist sound alike word errors. onversion Trans action, Provider Unknown - 01/18/2015 5:16 AM PDT Nurse Progress Note by Yady iSngh RN at 01/18/15515 Author: Yady Singh RN Service: (none) Author Type: Registered Nurse Filed: 01/18/152104 Date of Service: 01/18/15515 Status: Signed Integrated Circuit Design Engineer: Yady Singh RN (Registered Nurse) Pt taken [...] Date of Service: 01/17/15 162 Status: Signed Integrated Circuit Design Engineer: Jose Maria Espinal MD (Physician) Related Notes: Original Note by Jose Maria Espinal MD (Physician) filed at 01/17/152012 [facility] Service: Hospitalist Progress Note Pt: Cole Ernst AGE/SEX: 69 y.o. female : 1945 ROOM: [address] [place] [address] History of Present Illness: " The patient [...] who called EMS. Patient was taken to [facility] in [place]. Susie ent was noted to have a [...] Patient had borderline blood pressure. While at [facility] with systolic in the low 90s. Heart [...] CT done several days ago while in [place]. She also stat es that her vomiting and diarrhea have significantly improved. She denies any fevers, hemat emesis, melena, bright red blood per rectum, hematuria, dysuria, she denies any leg pain or swelling. No palpitations. She states she does have a history of "kidney disease" and was told that it was secondary to cyclosporine. However, she is not seen kidney specialist [facility] her liver transplant.".....per admitting MD/Dr. [...] collected as n oted. I urged the balance staff inspector to introduce a hat so that sample [...] contrast. Prior study for comparison: None FINDINGS: Jack Setter 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 deg enerative changes of [...] LA/Ao: 1.57 D-E Excursion: 2.11 cm E-F [place]: 0.09 m/s EPSS: 0.48 cm HR: 77.41 [...] TV A Billy: 0.66 m/s TV Dec [place]: 4.36 m/s2 TV Dec Time: 184.41 ms TV E Billy: 0.80 m/s TV E/A Rat io: 1.21 Wiring Mechanic: NEDRA Authenticated by: Gil Coronel MD Report [...] nutritional supplements as recommend ed by nutrition service/harness mender. Jose Maria Espinal MD 01/17/2015 4:29 PM onversion Transa ction, Provider Unknown - 01/17/2015 3:15 PM PDT Case Management by PHUONG Sandhu at 01/17/15 1515 Author: PHUONG Sandhu Service: (none) Author Type: Tile Roofer Filed: 01/17/15 1518 Date of Service: 01/17/155 Status: Signed Integrated Circuit Design Engineer: PHUONG Sandhu (Tile Roofer) 01/17/15 1500 Discharge Planning Evaluation Admitting Diagnosis Near syncope, elevated tropinin, non-stemi, CKD Anticipated Disposition Facility Type detention facility Medicare Important Message (MEREDITH) Given [facility] Other (comment) ([facility]) SCRAP PREPARATION SUPERVISOR met with Pt for discharge planning, on board with going to [facility] when medically ready. SCRAP PREPARATION SUPERVISOR p/c to [facility] - will accept Pt when medically ready. [facility] (73 miles) [address] [place] [address], [place] Automotive Software Engineer: Will DCP: [facility] Transportation: [facility] Facility Van - Automotive Software Engineer: Will Medicare important message signed and copy in chart LUIS FOUNTAIN, Mosaic Layer [phone] cell Rosangela Zavala MD - 01/17/2015 1:11 PM PDT Progress Notes by Rosangela Steinberg MD at 01/17/15 1311 Author: Rosangela Steinberg MD Service: Infectious Disease Author Type: Physician Filed: 01/17/15 7526 Date of Service: 01/17/15 1311 Status: Signed Integrated Circuit Design Engineer: Rosangela Steinberg MD (Physician) [facility] Service: Infectious Disease Progress Note Hospital Day: [...] vomiting and diarrhea. Had initially presented to [facility] in [place] with similar complaints. Was foun d to have an elevated troponin. She was mainly admitted as a non-STEMI. Found to have a leuk ocytosis. Since patient is immunocompromised, she was started empirically on IV ceftriaxone. Chest x-ray showed no infiltrate. Patient denies any recent fevers or chills. She went to [facility] mainly becau se of syncope. Prior to [...] extraluminal fluid collection abdomen pelvis without contrast [[id number]] Impression 1. Hypoinflated chest, but no evident infiltrate chest 1 view [[id number]] Impression 1. Indication for study and thus [...] 01/16/152137 Date of Service: 01/16/152127 Status: Signed Integrated Circuit Design Engineer: Juju Riggins MD (Physician) [facility] Service: Cardiology Progress Note Hospital Day: LOS: [...] Author: PHUONG Sandhu Service: (none) Author Type: Tile Roofer Filed: 01/16/156 Date of Service: 01/16/151642 Status: Signed Integrated Circuit Design Engineer: PHUONG Sandhu (Tile Roofer) 01/16/15 1600 Discharge Planning Evaluation Admitting Diagnosis Near syncope, elevated tropinin, non-stemi, CKD Anticipated Disposition Facility Type detention facility [facility] Other (comment) ([facility]) PHUONG received p/c from Will, admissions at [facility], states they are willi ng to accept Pt to their [facility] Facility, states their house physician will not pre scribe Methadone. Will states she will start authorization process with [employer] who is Managing the Medicare benefits. Will states the first 20 days are covered at 100% then day 21 will be $100.00 a day. DCP: [facility] or Home LUIS FOUNTAIN,Mosaic Layer [phone] cell Jose Maria Grimes MD - 01/16/2015 11:29 AM PDTFormatting of this note might be different from th e original. Progress Notes by Jose Maria Espinal MD at 01/16/15 1129 Author: Jose Maria Espinal MD Service: Hospitalist Author Type: Physician Filed: 01/17/15 1149 Date of Service: 01/16/15 1129 Status: Signed Integrated Circuit Design Engineer: Jose Maria Espinal MD (Physician) Related Notes: Original Note by Jose Maria Espinal MD (Physician) filed at 01/16/15 1137 [facility] Service: Hospitalist Progress Note Pt: Cole Ernst AGE/SEX: 69 y.o. female : 1945 ROOM: [address] [place] [address] History of Present Illness: " The patient [...] who called EMS. Patient was taken to [facility] in [place]. Susie ent was noted to have a [...] rate of 75 and antrolateral T-wave inver alsesandro. Patient was transferred here for higher level of care. Patient had borderline blood pressure. While at [facility] with systolic in the low 90s. Heart [...] CT done several days ago while in [place]. She also stat es that her vomiting and diarrhea have significantly improved. She denies any fevers, hemat emesis, melena, bright red blood per rectum, hematuria, dysuria, she denies any leg pain or swelling. No palpitations. She states she does have a history of "kidney disease" and was told that it was secondary to cyclosporine. However, she is not seen kidney specialist [facility] her liver transplant.".....per admitting MD/Dr. [...] collected as n oted. I urged the balance staff inspector to introduce a hat so that sample [...] contrast. Prior study for comparison: None FINDINGS: Jack Setter 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 deg enerative changes of [...] cystic structure arising from the posterior cor emeil of the left kidney on image 33-about [...] LA/Ao: 1.57 D-E Excursion: 2.11 cm E-F [place]: 0.09 m/s EPSS: 0.48 cm HR: 77.41 [...] TV A Billy: 0.66 m/s TV Dec [place]: 4.36 m/s2 TV Dec Time: 184.41 ms TV E Billy: 0.80 m/s TV E/A Rat io: 1.21 Wiring Mechanic: NEDRA Authenticated by: Gil Coronel MD Report [...] pressure has been showing increasing trend since mo toprolol has been held on admission due [...] Date of Service: 01/16/15 1102 Status: Signed Integrated Circuit Design Engineer: Natalio Bentio PT (Physical Therapist) 01/16/15 1102 PT Last Visit PT Received On 01/16/15 Reason for Treatment Deconditioning;Other (comment) (NSTEMI; Syncope) Requires PT Follow Up Awaiting tx order Follow up PT Only? No PT Eval/Reassessment Date 01/16/15 Assistance Required 1 person Chiropractic Physician Needed No Home Environment Type of Home Apartment ground level Home Exterior Layout Entry steps none Home Interior Layout Lives on main level with bedroom/bathroom Bathroom Shower/Tub Tub/shower unit Bathroom Toilet Standard Bathroom Equipment Shower stool;Grab bars in shower/bath;Grab bars outside of shower/bath Bathroom Accessibility Other (Comment) (Small bathroom) Home Equipment Walker 4 wheeled;Cane single point Prior Function Level of [place] Modified independent with functional mobility;Modified independent wi [...] (sitting in recliner w/ call light and SUPPORT GROUP MANAGER present) Restraints Initially in Place No Precautions [...] Eval/Reassessment Date 01/16/15 Assistance Required 1 person Chiropractic Physician Needed No Precautions Other Precautions Fall Risk [...] support. Patient in the recli ner w/ SUPPORT GROUP MANAGER present at end of session, no new [...] (sitting in recliner w/ call light and SUPPORT GROUP MANAGER present) Restraints Initially in Place No Plan [...] Date of Service: 01/16/15 1045 Status: Signed Integrated Circuit Design Engineer: Nupur Tadeo MD (Physician) [facility] Service: Infectious Disease Progress Note Hospital Day: [...] vomiting and diarrhea. Had initially presented to [facility] in [place] with similar complaints. Was found to have an elevated troponin . She was mainly admitted as a non-STEMI. Found to have a leukocytosis. Since patient is imm unocompromised, she was started empirically on IV ceftriaxone. Chest x-ray showed no infiltrate. Patient denies any recent fevers or chills. She went to [facility] mainly becau se of syncope. Prior to [...] Author: PHUONG Sandhu Service: (none) Author Type: Tile Roofer Filed: 01/16/15 1042 Date of Service: 01/16/15 1030 Status: Signed Integrated Circuit Design Engineer: PHUONG Sandhu (Tile Roofer) 01/16/15 1000 Discharge Planning Evaluation Admitting Diagnosis Near syncope, elevated tropinin, non-stemi, CKD Anticipated Disposition Facility Type detention facility SCRAP PREPARATION SUPERVISOR met with Pt and discussed discharge planning, states she has concerns returning home at this time, as Pt resides alone. SCRAP PREPARATION SUPERVISOR discussed rehab options, SNF vs Home Health vs Outpatient PT. Pt states her sister (Annie Tipton [phone] cell) assists with IADLs as Pt does not polo ojeda. Pt states she resides alone and has been doing ADLs on her own. Pt states she uses a 4WW with seat at home, then uses a cane when out of the home, stated, "I am a little vain" abou t using the 4WW in public. Pt is interested in [facility] [place], due to close proximity to her home. SCRAP PREPARATION SUPERVISOR faxe d SNF referral. Pt is a [...] need SNF Anticipated DCP: Pending placement at [facility] [place] LUIS FOUNTAIN, Mosaic Layer [phone] cell Luisito Mejía - 01/16/2015 9:12 AM PDTFormatting of this note might be different from the or iginal. Progress Notes by Luisito Thomas MD at 01/16/15911 Author: Luisito Thomas MD Service: Nephrology Author Type: Physician Filed: 01/20/15 1907 Date of Service: 01/16/15911 Status: Signed Integrated Circuit Design Engineer: Luisito Thomas MD (Physician) [facility] Service: NEPHROLOGY PROGRESS Note Cole Ernst 69 y.o. [id number] 4445/[id number] female [facility] Day: LOS: 2 days The patient is a 69 y.o. 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 High CIWA this shift =4. Patient c/o generalized pain, treated with PRN [place] per orders. Patient observed to be sle eping, following PRN medication and repositioning. Patient continues to be NSR-ST on tele. Vitals stable. Will continue to monitor patient. ose Maria Black MD - 01/15/2015 3:19 PM PDTFormatting of this note might be different from armando tellez original. Progress Notes by Jose Maria Espinal MD at 01/15/15 1656 Author: Jose Maria Espinal MD Service: Hospitalist Author Type: Physician Filed: 01/16/15 0925 Date of Service: 01/15/151518 Status: Signed Integrated Circuit Design Engineer: Jose Maria Espinal MD (Physician) Related Notes: Original Note by Jose Maria Espinal MD (Physician) filed at 01/15/151939 [facility] Service: Hospitalist Progress Note Pt: Cole Ernst [...] who called EMS. Patient was taken to [facility] in [place]. Susie ent was noted to have a [...] Patient had borderline blood pressure. While at [facility] with systolic in the low 90s. Heart [...] CT done several days ago while in [place]. She also stat es that her vomiting and diarrhea have significantly improved. She denies any fevers, hemat emesis, melena, bright red blood per rectum, hematuria, dysuria, she denies any leg pain or swelling. No palpitations. She states she does have a history of "kidney disease" and was told that it was secondary to cyclosporine. However, she is not seen kidney specialist [facility] her liver transplant.".....per admitting MD/Dr. [...] contrast. Prior study for comparison: None FINDINGS: Jack Setter 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 deg enerative changes of [...] LA/Ao: 1.57 D-E Excursion: 2.11 cm E-F [place]: 0.09 m/s EPSS: 0.48 cm HR: 77.41 [...] TV A Billy: 0.66 m/s TV Dec [place]: 4.36 m/s2 TV Dec Time: 184.41 ms TV E Billy: 0.80 m/s TV E/A Rat io: 1.21 Wiring Mechanic: NEDRA Authenticated by: Gil Coronel MD Report [...] Elevated troponins, question underlying non ST elevation AZ. Continue current medical th erapy. I appreciate [...] 1438 Date of Service: 01/15/151429 Status: Signed Integrated Circuit Design Engineer: Ronda Michaels RD (Registered Dietitian) 01/15/15 7116 Subjective Timepoint Admit Pt c/o In to [...] Estimated Energy Needs Total Energy Estimated Needs 6340-7395 kcal Method for Estimating Needs 25-30 kcal/kg [...] Date of Service: 01/15/15 1043 Status: Signed Integrated Circuit Design Engineer: Luisito Thomas MD (Physician) [facility] Service: NEPHROLOGY PROGRESS Note Cole Ernst 69 y.o. [id number] 4445/4445-1 female [facility] Day: LOS: 1 day The patient is a 69 y.o. 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 See ED Record for Physician Inter pretation. 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 [...] 01/14/152226 Date of Service: 01/14/152226 Status: Signed Integrated Circuit Design Engineer: Jazz Rahman RPH (Pharmacist) Clinical Pharmacy Note - Renal Dose Adjustment Cole Ernst 69 y.o. female Ht Readings from Last 1 Encounters: 01/14/15 1.6 m (5' 3") Wt Readings from Last 1 Encounters: 01/14/15 89.6 kg (197 lb 8.5 oz) CREATININE Date Value Ref Range Status 01/14/2015 2.4* 0.50 - 1.00 mg/dL Final Comment: Testing performed at [facility];[address] [place] [address];[place] [address] CREATININE: 2.4 mg/dL ABNORMAL (01/14/15 1548) Estimated [...] Case Management by PHUONG Crump LICSW at 01/14/158 Author: PHUONG Crump LICSW Service: (none) Author Type: Mosaic Layer Filed: 01/14/151734 Date of Service: 01/14/151733 Status: Signed Integrated Circuit Design Engineer: PHUONG Crump LICSW (Mosaic Layer) 01/14/151727 Discharge Planning Evaluation Admitting Diagnosis Near syncope, elevated tropinin, non-stemi, CKD Readmission No Living Arrangements Alone Support Systems Family members;Friends/neighbors Type of Residence Private residence House type Apartment Bathrooms on 1st Floor 1-Full Independent with ADL's Yes Independent with Mobility No-comment Home Care Services No Mental Status Oriented Power of Client Business Manager No;Other (comment) Resources Transportation issues No Prescription Plan Yes Name of Pharmacy [facility] in [place], [place] Previous home health equipment Yes Anticipated Disposition Facility Type Home Met with patient and discussed discharge planning, Pt is a 69 y.o., female who reports skyleri mack alone. Patient reports her sister, Annie Tipton, will transport her home a t discharge. Patient's PCP is: KI DE JESUS (General) Patient's insurance:b [employer] Health Plan & Medicare Coverage concerns: Medication coverage/concerns: Droeen Bedside Delivery: [facility] resources utilized / needed: TBD Assistance in [...] preparation was | | | performed by [facility], [facility], [facility] | | | [place] [address] (Virtual Assistant For Advertisers: Martin | | Tariq Galvan M.D.; NINA#: [id number]). Diagnostician: Martin Galvan | | | Pathologist [...] EXTERNAL | | | | performed at [facility], [address] | | LAB | | | | [address], | | | | | | [place] [address] | | | | + + + [...] EXTERNAL | | | | performed at [facility], [address] | | LAB | | | | [address], | | | | | | [place] [address] | | | | + + + [...] | | | | | [place] [address] | | | | + + + + + + | Cl | 101Comment: Testing | 99 - 109 mmol/L | EXTERNAL | | | | performed at [facility], [address] | | LAB | | | | [address], | | | | | | [place] [address] | | | | + + + + + + | CO2 | 28Comment: Testing | 23 - 32 mmol/L | EXTERNAL | | | | performed at [facility], [address] | | LAB | | | | [address], | | | | | | [place] [address] | | | | + + + + + + | Anion Gap | 10Comment: Testing | 5 - 20 mmol/L | EXTERNAL | | | | performed at [facility], [address] | | LAB | | | | [address], | | | | | | [place] [address] | | | | + + + + + + | Glucose, | 107 (H)Comment: Testing | 65 - 99 mg/dL | EXTERNAL | | | Fasting | performed at [facility], [address] | | LAB | | | | [address], | | | | | | [place] [address] | | | | + + + + + + | BUN | 8Comment: Testing | 8 - 25 mg/dL | EXTERNAL | | | | performed at [facility], [address] | | LAB | | | | [address], | | | | | | [place] [address] | | | | + + + + + + | Creatinine | 0.96Comment: Testing | 0.50 - 1.00 | EXTERNAL | | | | performed at [facility], [address] | mg/dL | LAB | | | | [address], | | | | | | [place] [address] | | | | + + + + + + | BUN/Creatin | 8Comment: Testing | | EXTERNAL | | | ine Ratio | performed at [facility], [address] | | LAB | | | | [address], | | | | | | [place] [address] | | | | + + + + + + | Calcium | 8.6Comment: Testing | 8.5 - 10.5 | EXTERNAL | | | | performed at [facility], [address] | mg/dL | LAB | | | | [address], | | | | | | [place] [address] | | | | + + + [...] | | | | | | at [facility], [address] | | | | | | [address], | | | | | | [place] [address] | | | | + + + [...] + + + | COLE ERNST 1945 [place] MYOCARDIAL PERFUSION SPECT - STRESS | | [...] - 01/05/2019 4:32 AM PDT COLE Corcoran [id number] MYOCARDIAL | | PERFUSION SPECT - STRESS [...] EXTERNAL | | | | performed at [facility], [address] | K/uL | LAB | | | | [address], | | | | | | [place] [address] | | | | + + + + + + | RED CELL | 3.41 (L)Comment: Testing | 3.70 - 5.10 | EXTERNAL | | | COUNT | performed at [facility], [address] | [address]/uL | LAB | | | | [address], | | | | | | [place] [address] | | | | + + + + + + | Hgb | 11.9Comment: Testing | 11.3 - 15.5 | EXTERNAL | | | | performed at [facility], [address] | g/dL | LAB | | | | [address], | | | | | | [place] [address] | | | | + + + + + + | Hematocrit, | 35.7Comment: Testing | 34.0 - 46.0 % | EXTERNAL | | | POC | performed at [facility], [address] | | LAB | | | | [address], | | | | | | [place] [address] | | | | + + + + + + | MCV | 104.6 (H)Comment: | 80.0 - 100.0 fl | EXTERNAL | | | | Testing performed at | | LAB | | | | [facility], [address] [facility] | | | | | | [place] | | | | | | [address] | | | | + + + + + + | MCH | 34.9 (H)Comment: Testing | 27.0 - 34.0 pg | EXTERNAL | | | | performed at [facility], [address] | | LAB | | | | [address], | | | | | | [place] [address] | | | | + + + + + + | MCHC | 33.3Comment: Testing | 32.0 - 35.5 | EXTERNAL | | | | performed at [facility], [address] | g/dL | LAB | | | | [address], | | | | | | [place] [address] | | | | + + + + + + | RDW-CV | 50.8Comment: Testing | 37 - 53 fl | EXTERNAL | | | | performed at [facility], [address] | | LAB | | | | [address], | | | | | | [place] [address] | | | | + + + [...] | | | | | [place] [address] | | | | + + + + + + | MPV | 12.6Comment: Testing | fl | EXTERNAL | | | | performed at [facility], [address] | | LAB | | | | [address], | | | | | | [place] [address] | | | | + + + + + + | Differentia | AUTOMATEDComment: | | EXTERNAL | | | l Type | Testing performed at | | LAB | | | | [facility], [address] | | | | | | [place] | | | | | | [address] | | | | + + + + + + | % Segmented | 40.31Comment: Testing | % | EXTERNAL | | | | performed at [facility], [address] | | LAB | | | Neutrophils | [address], | | | | | | [place] [address] | | | | + + + + + + | % | 39.78Comment: Testing | % | EXTERNAL | | | Lymphocytes | performed at [facility], [address] | | LAB | | | | [address], | | | | | | [place] [address] | | | | + + + + + + | % Monocytes | 12.51Comment: Testing | % | EXTERNAL | | | | performed at [facility], [address] | | LAB | | | | [address], | | | | | | [place] [address] | | | | + + + + + + | % | 6.45Comment: Testing | % | EXTERNAL | | | Eosinophils | performed at [facility], [address] | | LAB | | | | [address], | | | | | | [place] [address] | | | | + + + + + + | % Basophils | 0.95Comment: Testing | % | EXTERNAL | | | | performed at [facility], [address] | | LAB | | | | [address], | | | | | | [place] [address] | | | | + + + + + + | Absolute | 3.26Comment: Testing | 1.90 - 7.40 | EXTERNAL | | | Segmented | performed at [facility], [address] | K/uL | LAB | | | Neutrophils | [address], | | | | | | [place] [address] | | | | + + + + + + | Absolute | 3.21Comment: Testing | 1.00 - 3.90 | EXTERNAL | | | Lymphocytes | performed at [facility], [address] | K/uL | LAB | | | | [address], | | | | | | [place] [address] | | | | + + + + + + | Absolute | 1.01 (H)Comment: Testing | 0.00 - 0.80 | EXTERNAL | | | Monocytes | performed at [facility], [address] | K/uL | LAB | | | | [address], | | | | | | [place] [address] | | | | + + + + + + | Absolute | 0.52 (H)Comment: Testing | 0.00 - 0.50 | EXTERNAL | | | Eosinophils | performed at [facility], [address] | K/uL | LAB | | | | [address], | | | | | | [place] [address] | | | | + + + + + + | Absolute | 0.08Comment: Testing | 0.00 - 0.10 | EXTERNAL | | | Basophils | performed at [facility], [address] | K/uL | LAB | | | | [address], | | | | | | [place] [address] | | | | + + + + + + | RBC | RBC AND PLT MORPHOLOGY | | EXTERNAL | | | Morphology | APPEAR NORMALComment: | | LAB | | | | Testing performed at | | | | | | [facility], [address] [facility] | | | | | | [place] | | | | | | [address] | | | | + + + [...] EXTERNAL | | | | performed at [facility], [address] | | LAB | | | | [address], | | | | | | [place] [address] | | | | + + + [...] | | | | | [place] [address] | | | | + + + [...] | | | | | [place] [address] | | | | + + + + + + | K | 3.8Comment: Testing | 3.5 - 4.9 | EXTERNAL | | | | performed at [facility], [address] | mmol/L | LAB | | | | [address], | | | | | | [place] [address] | | | | + + + + + + | Cl | 101Comment: Testing | 99 - 109 mmol/L | EXTERNAL | | | | performed at [facility], [address] | | LAB | | | | [address], | | | | | | [place] [address] | | | | + + + + + + | CO2 | 27Comment: Testing | 23 - 32 mmol/L | EXTERNAL | | | | performed at [facility], [address] | | LAB | | | [address], | | | | | | [place] [address] | | | | + + + + + + | Anion Gap | 12Comment: Testing | 5 - 20 mmol/L | EXTERNAL | | | | performed at [facility], [address] | | LAB | | | | [address], | | | | | | [place] [address] | | | | + + + + + + | Glucose, | 118 (H)Comment: Testing | 65 - 99 mg/dL | EXTERNAL | | | Fasting | performed at [facility], [address] | | LAB | | | | [address], | | | | | | [place] [address] | | | | + + + + + + | BUN | 7 (L)Comment: Testing | 8 - 25 mg/dL | EXTERNAL | | | | performed at [facility], [address] | | LAB | | | | [address], | | | | | | [place] [address] | | | | + + + + + + | Creatinine | 0.79Comment: Testing | 0.50 - 1.00 | EXTERNAL | | | | performed at [facility], [address] | mg/dL | LAB | | | | [address], | | | | | | [place] [address] | | | | + + + + + + | BUN/Creatin | 9Comment: Testing | | EXTERNAL | | | ine Ratio | performed at [facility], [address] | | LAB | | | | [address], | | | | | | [place] [address] | | | | + + + + + + | Calcium | 7.5 (L)Comment: Testing | 8.5 - 10.5 | EXTERNAL | | | | performed at [facility], [address] | mg/dL | LAB | | | | [address], | | | | | | [place] [address] | | | | + + + + + + | Protein, | 7.2Comment: Testing | 6.3 - 8.2 g/dL | EXTERNAL | | | Total | performed at [facility], [address] | | LAB | | | | [address], | | | | | | [place] [address] | | | | + + + + + + | Albumin | 3.1 (L)Comment: Testing | 3.3 - 4.8 g/dL | EXTERNAL | | | | performed at [facility], [address] | | LAB | | | | [address], | | | | | | [place] [address] | | | | + + + + + + | Globulin | 4.1Comment: Testing | 1.3 - 4.9 g/dL | EXTERNAL | | | | performed at [facility], [address] | | LAB | | | | [address], | | | | | | [place] [address] | | | | + + + + + + | A/G Ratio | 0.8 (L)Comment: Testing | 1.0 - 2.4 | EXTERNAL | | | | performed at [facility], [address] | | LAB | | | | [address], | | | | | | [place] [address] | | | | + + + + + + | Bilirubin | 0.5Comment: Testing | 0.1 - 1.5 mg/dL | EXTERNAL | | | Total | performed at [facility], [address] | | LAB | | | | [address], | | | | | | [place] [address] | | | | + + + + + + | ALP, | 76Comment: Testing | 35 - 115 U/L | EXTERNAL | | | External | performed at [facility], [address] | | LAB | | | | [address], | | | | | | [place] [address] | | | | + + + + + + | AST | 43Comment: Testing | 10 - 45 U/L | EXTERNAL | | | | performed at [facility], [address] | | LAB | | | | [address], | | | | | | [place] [address] | | | | + + + + + + | ALT | 25Comment: Testing | 10 - 65 U/L | EXTERNAL | | | | performed at [facility], [address] | | LAB | | | | [address], | | | | | | [place] [address] | | | | + + + [...] | | | | | [place] [address] | | | | + + + [...] EXTERNAL | | | | performed at [facility];[address] | mmol/L | LAB | | | | [address];[place] | | | | | | [address] | | | | + + + [...] EXTERNAL | | | | performed at [facility] | | LAB | | | | [address] [facility];[place], [place] | | | | | | [address] | | | | + + + [...] EXTERNAL | | | | performed at [facility];[address] | | LAB | | | | [address];[place] | | | | | | [address] | | | | + + + [...] EXTERNAL | | | | performed at [facility];[address] | mmol/L | LAB | | | | [address];[place], [place] | | | | | | [address] | | | | + + + [...] EXTERNAL | | | | performed at [facility];[address] | | LAB | | | | [address];[place] | | | | | | [address] | | | | + + + [...] EXTERNAL | | | | performed at [facility];8 | | LAB | | | | [address] [facility];[place], [place] | | | | | | [address] | | | | + + + [...] | | | | | [place] [address] | | | | + + + + + + | RED CELL | 3.40 (L)Comment: Testing | 3.70 - 5.10 | EXTERNAL | | | COUNT | performed at [facility], [address] | M/uL | LAB | | | | [address], | | | | | | [place] [address] | | | | + + + + + + | Hgb | 12.0Comment: Testing | 11.3 - 15.5 | EXTERNAL | | | | performed at [facility], [address] | g/dL | LAB | | | | [address], | | | | | | [place] [address] | | | | + + + + + + | Hematocrit, | 35.8Comment: Testing | 34.0 - 46.0 % | EXTERNAL | | | POC | performed at [facility], [address] | | LAB | | | | [address], | | | | | | [place] [address] | | | | + + + + + + | MCV | 105.3 (H)Comment: | 80.0 - 100.0 fl | EXTERNAL | | | | Testing performed at | | LAB | | | | [facility], [address] [facility] | | | | | | [place] | | | | | | [address] | | | | + + + + + + | MCH | 35.3 (H)Comment: Testing | 27.0 - 34.0 pg | EXTERNAL | | | | performed at [facility], [address] | | LAB | | | | [address], | | | | | | [place] [address] | | | | + + + + + + | MCHC | 33.6Comment: Testing | 32.0 - 35.5 | EXTERNAL | | | | performed at [facility], [address] | g/dL | LAB | | | | [address], | | | | | | [place] [address] | | | | + + + + + + | RDW-CV | 50.8Comment: Testing | 37 - 53 fl | EXTERNAL | | | | performed at [facility], [address] | | LAB | | | | [address], | | | | | | [place] [address] | | | | + + + + + + | Platelet | 149 (L)Comment: Testing | 150 - 400 K/uL | EXTERNAL | | | Count | performed at [facility], [address] | | LAB | | | Plasma | [address], | | | | | | [place] [address] | | | | + + + + + + | MPV | 13.0Comment: Testing | fl | EXTERNAL | | | | performed at [facility], [address] | | LAB | | | | [address], | | | | | | [place] [address] | | | | + + + + + + | Differentia | AUTOMATEDComment: | | EXTERNAL | | | l Type | Testing performed at | | LAB | | | | [facility], [address] | | | | | | [place] | | | | | | [address] | | | | + + + + + + | % Segmented | 52.08Comment: Testing | % | EXTERNAL | | | | performed at [facility], [address] | | LAB | | | Neutrophils | [address], | | | | | | [place] [address] | | | | + + + + + + | % | 32.37Comment: Testing | % | EXTERNAL | | | Lymphocytes | performed at [facility], [address] | | LAB | | | | [address], | | | | | | [place] [address] | | | | + + + + + + | % Monocytes | 10.07Comment: Testing | % | EXTERNAL | | | | performed at [facility], [address] | | LAB | | | | [address], | | | | | | [place] [address] | | | | + + + + + + | % | 4.41Comment: Testing | % | EXTERNAL | | | Eosinophils | performed at [facility], [address] | | LAB | | | | [address], | | | | | | [place] [address] | | | | + + + + + + | % Basophils | 1.07Comment: Testing | % | EXTERNAL | | | | performed at [facility], [address] | | LAB | | | | [address], | | | | | | [place] [address] | | | | + + + + + + | Absolute | 5.59Comment: Testing | 1.90 - 7.40 | EXTERNAL | | | Segmented | performed at [facility], [address] | K/uL | LAB | | | Neutrophils | [address], | | | | | | [place] [address] | | | | + + + + + + | Absolute | 3.48Comment: Testing | 1.00 - 3.90 | EXTERNAL | | | Lymphocytes | performed at [facility], [address] | K/uL | LAB | | | | [address], | | | | | | [place] [address] | | | | + + + + + + | Absolute | 1.08 (H)Comment: Testing | 0.00 - 0.80 | EXTERNAL | | | Monocytes | performed at [facility], [address] | [address] | LAB | | | | [address], | | | | | | [place] [address] | | | | + + + + + + | Absolute | 0.47Comment: Testing | 0.00 - 0.50 | EXTERNAL | | | Eosinophils | performed at [facility], [address] | K/uL | LAB | | | | [address], | | | | | | [place] [address] | | | | + + + + + + | Absolute | 0.12 (H)Comment: Testing | 0.00 - 0.10 | EXTERNAL | | | Basophils | performed at [facility], [address] | K/uL | LAB | | | | [address], | | | | | | [place] [address] | | | | + + + + + + | RBC | NORMAL RBC MORPHComment: | | EXTERNAL | | | Morphology | Testing performed at | | LAB | | | | [facility], [address] [facility] | | | | | | [place] | | | | | | [address] | | | | + + + + + + | Differentia | 1+ GIANT PLTComment: | | EXTERNAL | | | l Comments | Testing performed at | | LAB | | | | [facility], [address] | | | | | | [place] | | | | | | [address] | | | | + + + [...] | | | | | [place] [address] | | | | + + + + + + | K | 3.2 (L)Comment: Testing | 3.5 - 4.9 | EXTERNAL | | | | performed at [facility], [address] | mmol/L | LAB | | | | [address], | | | | | | [place] [address] | | | | + + + + + + | Cl | 100Comment: Testing | 99 - 109 mmol/L | EXTERNAL | | | | performed at [facility], [address] | | LAB | | | | [address], | | | | | | [place] [address] | | | | + + + + + + | CO2 | 28Comment: Testing | 23 - 32 mmol/L | EXTERNAL | | | | performed at [facility], [address] | | LAB | | | | [address], | | | | | | [place] [address] | | | | + + + + + + | Anion Gap | 13Comment: Testing | 5 - 20 mmol/L | EXTERNAL | | | | performed at [facility], [address] | | LAB | | | | [address], | | | | | | [place] [address] | | | | + + + + + + | Glucose, | 114 (H)Comment: Testing | 65 - 99 mg/dL | EXTERNAL | | | Fasting | performed at [facility], [address] | | LAB | | | | [address], | | | | | | [place] [address] | | | | + + + + + + | BUN | 8Comment: Testing | 8 - 25 mg/dL | EXTERNAL | | | | performed at [facility], [address] | | LAB | | | | [address], | | | | | | [place] [address] | | | | + + + + + + | Creatinine | 0.94Comment: Testing | 0.50 - 1.00 | EXTERNAL | | | | performed at [facility], [address] | mg/dL | LAB | | | | [address], | | | | | | [place] [address] | | | | + + + + + + | BUN/Creatin | 9Comment: Testing | | EXTERNAL | | | ine Ratio | performed at [facility], [address] | | LAB | | | | [address], | | | | | | [place] [address] | | | | + + + + + + | Calcium | 7.8 (L)Comment: Testing | 8.5 - 10.5 | EXTERNAL | | | | performed at [facility], [address] | mg/dL | LAB | | | | [address], | | | | | | [place] [address] | | | | + + + + + + | Protein, | 7.8Comment: Testing | 6.3 - 8.2 g/dL | EXTERNAL | | | Total | performed at [facility], [address] | | LAB | | | | [address], | | | | | | [place] [address] | | | | + + + + + + | Albumin | 3.3Comment: Testing | 3.3 - 4.8 g/dL | EXTERNAL | | | | performed at [facility], [address] | | LAB | | | [address], | | | | | | [place] [address] | | | | + + + + + + | Globulin | 4.5Comment: Testing | 1.3 - 4.9 g/dL | EXTERNAL | | | | performed at [facility], [address] | | LAB | | | | [address], | | | | | | [place] [address] | | | | + + + + + + | A/G Ratio | 0.7 (L)Comment: Testing | 1.0 - 2.4 | EXTERNAL | | | | performed at [facility], [address] | | LAB | | | | [address], | | | | | | [place] [address] | | | | + + + + + + | Bilirubin | 0.4Comment: Testing | 0.1 - 1.5 mg/dL | EXTERNAL | | | Total | performed at [facility], [address] | | LAB | | | | [address], | | | | | | [place] [address] | | | | + + + + + + | ALP, | 83Comment: Testing | 35 - 115 U/L | EXTERNAL | | | External | performed at [facility], [address] | | LAB | | | | [address], | | | | | | [place] [address] | | | | + + + + + + | AST | 34Comment: Testing | 10 - 45 U/L | EXTERNAL | | | | performed at [facility], [address] | | LAB | | | | [address], | | | | | | [place] [address] | | | | + + + + + + | ALT | 24Comment: Testing | 10 - 65 U/L | EXTERNAL | | | | performed at [facility], [address] | | LAB | | | | [facility], | | | | | | [place] [address] | | | | + + + [...] W | | | | | | [facility], | | | | | | [place] [address] | | | | + + + [...] LAB | | | | performed at [facility] | | | | | | [address] [facility];[place], [place] | | | | | | [address] | | | | + + + [...] LAB | | | | performed at [facility];[address] | | | | | | [address];[place], [place] | | | | | | [address] | | | | + + + [...] EXTERNAL | | | | performed at [facility];[address] | mmol/L | LAB | | | | [address];[place], [place] | | | | | | [address] | | | | + + + [...] EXTERNAL | | | | performed at [facility];[address] | | LAB | | | | [address];[place], [place] | | | | | | [address] | | | | + + + [...] TESTING. | | | Testing performed at [facility], [address] | | | [place] [address] | | + + + + +---------+ [...] | Testing performed at | | | [facility], [address] [place] [address] | | + + + + +---------+ [...] NONE SEEN to 1+ Testing performed at [facility], [address] [facility] | | | [place] [address] | | + + + + +---------+ [...] antigen detected by ICA Testing performed at [facility], [address] | | | [place] [address] | | + + + + +---------+ [...] at | | | | | | [facility], [address] | | | | | | [place] | | | | | | [address] | | | | + + + [...] [place] | | | | | | [place] [address] | | | | + + + [...] EXTERNAL | | | | performed at [facility];[address] | | LAB | | | | [facility];[place], [place] | | | | | | [address] | | | | + + + + + + | CMV DNA | NOT DETECTEDComment: | | EXTERNAL | | | QUANTITATIV | Unit: IU/MLTesting | | LAB | | | E INTERP | performed at [facility], [address] | | | | | | [place] | | | | | | [place] [address] | | | | + + + + + + | CMV DNA, | NOT DETECTEDComment: | | EXTERNAL | | | Qual PCR | Unit: COPIES/MLTesting | | LAB | | | | performed at [facility], [address] | | | | | | [place] | | | | | | [place] [address] | | | | + + + [...] [place] | | | | | | [address] | | | | + + + [...] EXTERNAL | | | | performed at [facility], [address] | K/uL | LAB | | | | [address], | | | | | | [place] [address] | | | | + + + + + + | RED CELL | 3.28 (L)Comment: Testing | 3.70 - 5.10 | EXTERNAL | | | COUNT | performed at [facility], [address] | M/uL | LAB | | | | [address], | | | | | | [place] [address] | | | | + + + + + + | Hgb | 11.6Comment: Testing | 11.3 - 15.5 | EXTERNAL | | | | performed at [facility], [address] | g/dL | LAB | | | | [address], | | | | | | [place] [address] | | | | + + + + + + | Hematocrit, | 34.5Comment: Testing | 34.0 - 46.0 % | EXTERNAL | | | POC | performed at [facility], [address] | | LAB | | | | [address], | | | | | | [place] [address] | | | | + + + + + + | MCV | 105.1 (H)Comment: | 80.0 - 100.0 fl | EXTERNAL | | | | Testing performed at | | LAB | | | | [facility], [address] | | | | | | [place] | | | | | | [address] | | | | + + + + + + | MCH | 35.3 (H)Comment: Testing | 27.0 - 34.0 pg | EXTERNAL | | | | performed at [facility], [address] | | LAB | | | | [address], | | | | | | [place] [address] | | | | + + + + + + | MCHC | 33.5Comment: Testing | 32.0 - 35.5 | EXTERNAL | | | | performed at [facility], [address] | g/dL | LAB | | | | [address], | | | | | | [place] [address] | | | | + + + + + + | RDW-CV | 50.8Comment: Testing | 37 - 53 fl | EXTERNAL | | | | performed at [facility], [address] | | LAB | | | | [address], | | | | | | [place] [address] | | | | + + + + + + | Platelet | 144 (L)Comment: Testing | 150 - 400 K/uL | EXTERNAL | | | Count | performed at [facility], [address] | | LAB | | | Plasma | [address], | | | | | | [place] [address] | | | | + + + + + + | MPV | 13.0Comment: Testing | fl | EXTERNAL | | | | performed at [facility], [address] | | LAB | | | | [address], | | | | | | [place] [address] | | | | + + + + + + | Differentia | AUTOMATEDComment: | | EXTERNAL | | | l Type | Testing performed at | | LAB | | | | [facility], [address] | | | | | | [place] | | | | | | [address] | | | | + + + + + + | % Segmented | 37.99Comment: Testing | % | EXTERNAL | | | | performed at [facility], [address] | | LAB | | | Neutrophils | [address], | | | | | | [place] [address] | | | | + + + + + + | % | 43.49Comment: Testing | % | EXTERNAL | | | Lymphocytes | performed at [facility], [address] | | LAB | | | | [address], | | | | | | [place] [address] | | | | + + + + + + | % Monocytes | 11.24Comment: Testing | % | EXTERNAL | | | | performed at [facility], [address] | | LAB | | | | [address], | | | | | | [place] [address] | | | | + + + + + + | % | 5.97Comment: Testing | % | EXTERNAL | | | Eosinophils | performed at [facility], [address] | LAB | | | [address], | | | | | | [place] [address] | | | | + + + + + + | % Basophils | 1.31Comment: Testing | % | EXTERNAL | | | | performed at [facility], [address] | | LAB | | | | [address], | | | | | | [place] [address] | | | | + + + + + + | Absolute | 4.01Comment: Testing | 1.90 - 7.40 | EXTERNAL | | | Segmented | performed at [facility], [address] | [address] | LAB | | | Neutrophils | [address], | | | | | | [place] [address] | | | | + + + + + + | Absolute | 4.59 (H)Comment: Testing | 1.00 - 3.90 | EXTERNAL | | | Lymphocytes | performed at [facility], [address] | [address] | LAB | | | | [address], | | | | | | [place] [address] | | | | + + + + + + | Absolute | 1.19 (H)Comment: Testing | 0.00 - 0.80 | EXTERNAL | | | Monocytes | performed at [facility], [address] | [address] | LAB | | | | [address], | | | | | | [place] [address] | | | | + + + + + + | Absolute | 0.63 (H)Comment: Testing | 0.00 - 0.50 | EXTERNAL | | | Eosinophils | performed at [facility], [address] | [address] | LAB | | | | [address], | | | | | | [place] [address] | | | | + + + + + + | Absolute | 0.14 (H)Comment: Testing | 0.00 - 0.10 | EXTERNAL | | | Basophils | performed at [facility], [address] | [address] | LAB | | | | [address], | | | | | | [place] [address] | | | | + + + + + + | RBC | NORMAL RBC MORPHComment: | | EXTERNAL | | | Morphology | Testing performed at | | LAB | | | | [facility], [address] | | | | | | [place] | | | | | | [address] | | | | + + + + + + | Differentia | 2+ GIANT PLTComment: | | EXTERNAL | | | l Comments | Testing performed at | | LAB | | | | [facility], [address] | | | | | | [place] | | | | | | [address] | | | | + + + [...] [place] | | | | | | [address] | | | | + + + [...] | | | (REF) | performed at [facility], [address] | | LAB | | | | [address], | | | | | | [place] [address] | | | | + + + [...] | | | | | [place] [address] | | | | + + + [...] EXTERNAL | | | | performed at [facility], [address] | | LAB | | | | [address], | | | | | | [place] [address] | | | | + + + [...] | | | | | [place] [address] | | | | + + + + + + | K | 3.0 (L)Comment: Testing | 3.5 - 4.9 | EXTERNAL | | | | performed at [facility], [address] | mmol/L | LAB | | | | [address], | | | | | | [place] [address] | | | | + + + + + + | Cl | 104Comment: Testing | 99 - 109 mmol/L | EXTERNAL | | | | performed at [facility], [address] | | LAB | | | [address], | | | | | | [place] [address] | | | | + + + + + + | CO2 | 22 (L)Comment: Testing | 23 - 32 mmol/L | EXTERNAL | | | | performed at [facility], [address] | | LAB | | | | [address], | | | | | | [place] [address] | | | | + + + + + + | Anion Gap | 15Comment: Testing | 5 - 20 mmol/L | EXTERNAL | | | | performed at [facility], [address] | | LAB | | | | [address], | | | | | | [place] [address] | | | | + + + + + + | Glucose, | 82Comment: Testing | 65 - 99 mg/dL | EXTERNAL | | | Fasting | performed at [facility], [address] | | LAB | | | | [address], | | | | | | [place] [address] | | | | + + + + + + | BUN | 13Comment: Testing | 8 - 25 mg/dL | EXTERNAL | | | | performed at [facility], [address] | | LAB | | | | [address], | | | | | | [place] [address] | | | | + + + + + + | Creatinine | 1.01 (H)Comment: Testing | 0.50 - 1.00 | EXTERNAL | | | | performed at [facility], [address] | mg/dL | LAB | | | | [address], | | | | | | [place] [address] | | | | + + + + + + | BUN/Creatin | 13Comment: Testing | | EXTERNAL | | | ine Ratio | performed at [facility], [address] | | LAB | | | | [address], | | | | | | [place] [address] | | | | + + + + + + | Calcium | 7.7 (L)Comment: Testing | 8.5 - 10.5 | EXTERNAL | | | | performed at [facility], [address] | mg/dL | LAB | | | | [address], | | | | | | [place] [address] | | | | + + + + + + | Protein, | 7.1Comment: Testing | 6.3 - 8.2 g/dL | EXTERNAL | | | Total | performed at [facility], [address] | | LAB | | | | [address], | | | | | | [place] [address] | | | | + + + + + + | Albumin | 3.2 (L)Comment: Testing | 3.3 - 4.8 g/dL | EXTERNAL | | | | performed at [facility], [address] | | LAB | | | | [address], | | | | | | [place] [address] | | | | + + + + + + | Globulin | 3.9Comment: Testing | 1.3 - 4.9 g/dL | EXTERNAL | | | | performed at [facility], [address] | | LAB | | | | [address], | | | | | | [place] [address] | | | | + + + + + + | A/G Ratio | 0.8 (L)Comment: Testing | 1.0 - 2.4 | EXTERNAL | | | | performed at [facility], [address] | | LAB | | | | [address], | | | | | | [place] [address] | | | | + + + + + + | Bilirubin | 0.4Comment: Testing | 0.1 - 1.5 mg/dL | EXTERNAL | | | Total | performed at [facility], [address] | | LAB | | | | [address], | | | | | | [place] [address] | | | | + + + + + + | ALP, | 76Comment: Testing | 35 - 115 U/L | EXTERNAL | | | External | performed at [facility], [address] | | LAB | | | | [address], | | | | | | [place] [address] | | | | + + + + + + | AST | 26Comment: Testing | 10 - 45 U/L | EXTERNAL | | | | performed at [facility], [address] | | LAB | | | | [address], | | | | | | [place] [address] | | | | + + + + + + | ALT | 19Comment: Testing | 10 - 65 U/L | EXTERNAL | | | | performed at [facility], [address] | | LAB | | | | [address], | | | | | | [place] [address] | | | | + + + [...] Jose, | | | | | | [place] [address] | | | | + + + [...] LAB | | | | performed at [facility], [address] | | | | | | [facility], | | | | | | [place] [address] | | | | + + + [...] | | | Urine | performed at [facility], [address] | | LAB | | | Random | [address], | | | | | | [place] [address] | | | | + + + [...] | at [facility], [address] [place] [address] | | + + + + +---------+ [...] LA/Ao: 1.57 D-E Excursion: 2.11 cm E-F [place]: 0.09 m/s | | | EPSS: 0.48 [...] TV A Billy: 0.66 m/s TV Dec [place]: 4.36 m/s2 TV Dec | | | Time: 184.41 ms TV E Billy: 0.80 m/s TV E/A Ratio: 1.21 | | | Wiring Mechanic: NEDRA Authenticated by: Gil Coronel MD Report [...] | Index (A-L): 40.51 ml/m2LAAs A2C: 24.56 [id number] A-L A2C: 76.32 mlLAESV MOD A2C: | | 73.52 mlLALs A2C: 6.71 cmLAAs A4C: 24.96 [id number] A-L A4C: 79.86 mlLAESV MOD A4C: | | 77.20 mlLALs A4C: 6.62 cmAo Diam: 2.73 cmAV Cusp: 2.27 cmLA Diam: 4.29 | | cmLA/Ao: 1.57D-E Excursion: 2.11 cmE-F [place]: 0.09 m/sEPSS: 0.48 cmHR: 77.41 | | BPMAV maxP.05 mmHgAV meanP.21 mmHgAV Vmax: 1.73 m/Sorin Vmean: 1.25 m/Sorin | | VTI: 34.68 cmAVA Vmax: 2.07 cm2AVA (VTI): 1.85 [id number] Dopp: 2.60 l/yzbj3LVCL | | Dopp: 5.05 l/minHR: 78.81 BPMLVOT [...] | m/sTV A Billy: 0.66 m/sTV Dec [place]: 4.36 m/s2TV Dec Time: 184.41 msTV E Billy: 0.80 | | m/sTV E/A Ratio: 1.21 Wiring Mechanic: GDAuthenticated by: Gil Coronel [facility] | | Date/Time: 01-15-2015 09:12:05 IMPRESSION: [...] | |D-E [place]curs[place]: 2.11 cm | |E-F [place]: 0.09 m/s | |EPSS: 0.48 cm | [...] A Billy: 0.66 m/s | |TV Dec [place]: 4.36 m/s2 | |TV Dec Time: 184.41 ms | |TV E Billy: 0.80 m/s | |TV E/A Ratio: 1.21 | | | |Wiring Mechanic: NEDRA | |Authenticated by: Gil Coronel MD [...] | EXTERNAL LAB | | performed at [facility];[address];[place] [address] 027 NAP1 BI | | | 027 NAP1 BI PRESUMPTIVE NEGATIVE | | | Detection of 027 NAP1 BI strains of C. difficile is presumptive and | | | for epidemiological purposes and not intended to guide or monitor | | | treatment for C. difficile infections. Testing performed at [facility];[address] | | | [facility];[place] [address] | | + + + + +---------+ [...] | | | | | [place] [address] | | | | + + + + + + | Complement | 19.4Comment: Testing | 10 - 40 mg/dL | EXTERNAL | | | Comp 4 | performed at [facility], [address] | | LAB | | | | [address], | | | | | | [place] [address] | | | | + + + [...] | | | | | | ACUTE [place] Testing | | | | | | performed at [facility];[address] | | | | | | [address];[place], [place] | | | | | | [address] | | | | + + + [...] K/uL | LAB | | | | [facility];[address];[place] [address] | | | | + + + + + + | RED CELL | 3.27 (L)Comment: Testing | 3.70 - 5.10 | EXTERNAL | | | COUNT | performed at [facility];[address] | [address] | LAB | | | | [address];[place] | | | | | | [address] | | | | + + + + + + | Hgb | 11.2 (L)Comment: Testing | 11.3 - 15.5 | EXTERNAL | | | | performed at [facility];[address] | g/dL | LAB | | | | [address];[place] | | | | | | [address] | | | | + + + + + + | Hematocrit, | 34.4Comment: Testing | 34.0 - 46.0 % | EXTERNAL | | | POC | performed at [facility];[address] | | LAB | | | | [address];[place] | | | | | | [address] | | | | + + + + + + | MCV | 105.2 (H)Comment: | 80.0 - 100.0 fl | EXTERNAL | | | | Testing performed at | | LAB | | | | [facility];[address];[place] [address] | | | | + + + + + + | MCH | 34.2 (H)Comment: Testing | 27.0 - 34.0 pg | EXTERNAL | | | | performed at [facility];[address] | | LAB | | | | [address];[place] | | | | | | [address] | | | | + + + + + + | MCHC | 32.5Comment: Testing | 32.0 - 35.5 | EXTERNAL | | | | performed at [facility];[address] | g/dL | LAB | | | | [address];[place] | | | | | | [address] | | | | + + + + + + | RDW-CV | 50.3Comment: Testing | 37 - 53 fl | EXTERNAL | | | | performed at [facility];[address] | | LAB | | | | [address];[place] | | | | | | [address] | | | | + + + + + + | Platelet | 160Comment: Testing | 150 - 400 K/uL | EXTERNAL | | | Count | performed at [facility];[address] | | LAB | | | Plasma | [address];[place] | | | | | | [address] | | | | + + + + + + | MPV | 11.1Comment: Testing | fl | EXTERNAL | | | | performed at [facility];[address] | | LAB | | | | [address];[place] | | | | | | [address] | | | | + + + + + + | Differentia | AUTOMATEDComment: | | EXTERNAL | | | l Type | Testing performed at | | LAB | | | | [facility];[address];[place] [address] | | | | + + + + + + | % Segmented | 50.65Comment: Testing | % | EXTERNAL | | | | performed at [facility];[address] | | LAB | | | Neutrophils | [address];[place] | | | | | | [address] | | | | + + + + + + | % | 37.06Comment: Testing | % | EXTERNAL | | | Lymphocytes | performed at [facility];[address] | | LAB | | | | [address];[place] | | | | | | [address] | | | | + + + + + + | % Monocytes | 9.60Comment: Testing | % | EXTERNAL | | | | performed at [facility];[address] | | LAB | | | | [address];[place] | | | | | | [address] | | | | + + + + + + | % | 1.30Comment: Testing | % | EXTERNAL | | | Eosinophils | performed at [facility];[address] | | LAB | | | | [address];[place] | | | | | | [address] | | | | + + + + + + | % Basophils | 1.39Comment: Testing | % | EXTERNAL | | | | performed at [facility];[address] | | LAB | | | | [address];[place] | | | | | | [address] | | | | + + + + + + | Absolute | 6.64Comment: Testing | 1.90 - 7.40 | EXTERNAL | | | Segmented | performed at [facility];[address] | K/uL | LAB | | | Neutrophils | [address];[place] | | | | | | [address] | | | | + + + + + + | Absolute | 4.86 (H)Comment: Testing | 1.00 - 3.90 | EXTERNAL | | | Lymphocytes | performed at [facility];[address] | K/uL | LAB | | | | [address];[place] | | | | | | [address] | | | | + + + + + + | Absolute | 1.26 (H)Comment: Testing | 0.00 - 0.80 | EXTERNAL | | | Monocytes | performed at [facility];[address] | K/uL | LAB | | | | [address];[place] | | | | | | [address] | | | | + + + + + + | Absolute | 0.17Comment: Testing | 0.00 - 0.50 | EXTERNAL | | | Eosinophils | performed at [facility];[address] | K/uL | LAB | | | | [address];[place] | | | | | | [address] | | | | + + + + + + | Absolute | 0.18 (H)Comment: Testing | 0.00 - 0.10 | EXTERNAL | | | Basophils | performed at [facility];[address] | K/uL | LAB | | | | [address];[place] | | | | | | [address] | | | | + + + [...] EXTERNAL | | | | performed at [facility];[address] | | LAB | | | | [facility];[place], [place] | | | | | | [address] | | | | + + + [...] LAB | | | | performed at [facility];[address] | | | | | | [address];[place], [place] | | | | | | [address] | | | | + + + [...] EXTERNAL | | | | performed at [facility];[address] | mmol/L | LAB | | | | [address];[place] | | | | | | [address] | | | | + + + + + + | K | 3.7Comment: SLT | 3.5 - 4.9 | EXTERNAL | | | | HEMOLYSISTesting | mmol/L | LAB | | | | performed at [facility];[address] | | | | | | [address];[place] | | | | | | [address] | | | | + + + + + + | Cl | 110 (H)Comment: Testing | 99 - 109 mmol/L | EXTERNAL | | | | performed at [facility];[address] | | LAB | | | | [address];[place] | | | | | | [address] | | | | + + + + + + | CO2 | 24Comment: Testing | 23 - 32 mmol/L | EXTERNAL | | | | performed at [facility];[address] | | LAB | | | | [address];[place] | | | | | | [address] | | | | + + + + + + | Anion Gap | 13Comment: Testing | 5 - 20 mmol/L | EXTERNAL | | | | performed at [facility];[address] | | LAB | | | | [address];[place] | | | | | | [address] | | | | + + + + + + | Glucose, | 109 (H)Comment: Testing | 65 - 99 mg/dL | EXTERNAL | | | Fasting | performed at [facility];[address] | | LAB | | | | [address];[place] | | | | | | [address] | | | | + + + + + + | BUN | 24Comment: Testing | 8 - 25 mg/dL | EXTERNAL | | | | performed at [facility];[address] | | LAB | | | | [address];[place] | | | | | | [address] | | | | + + + + + + | Creatinine | 1.7 (H)Comment: Testing | 0.50 - 1.00 | EXTERNAL | | | | performed at [facility];[address] | mg/dL | LAB | | | | [address];[place] | | | | | | [address] | | | | + + + + + + | BUN/Creatin | 14Comment: Testing | | EXTERNAL | | | ine Ratio | performed at [facility];[address] | | LAB | | | | [address];[place] | | | | | | [address] | | | | + + + + + + | Calcium | 7.4 (L)Comment: Testing | 8.5 - 10.5 | EXTERNAL | | | | performed at [facility];888 | mg/dL | LAB | | | | [address];[place] | | | | | | [address] | | | | + + + + + + | Protein, | 7.0Comment: Testing | 6.3 - 8.2 g/dL | EXTERNAL | | | Total | performed at [facility];[address] | | LAB | | | | [address];[place] | | | | | | [address] | | | | + + + + + + | Albumin | 2.6 (L)Comment: Testing | 3.3 - 4.8 g/dL | EXTERNAL | | | | performed at [facility];[address] | | LAB | | | | [address];[place] | | | | | | [address] | | | | + + + + + + | Globulin | 4.3Comment: Testing | 1.3 - 4.9 g/dL | EXTERNAL | | | | performed at [facility];[address] | | LAB | | | | [address];[place] | | | | | | [address] | | | | + + + + + + | A/G Ratio | 0.6 (L)Comment: Testing | 1.0 - 2.4 | EXTERNAL | | | | performed at [facility];[address] | | LAB | | | | [address];[place] | | | | | | [address] | | | | + + + + + + | Bilirubin | 0.4Comment: Testing | 0.1 - 1.5 mg/dL | EXTERNAL | | | Total | performed at [facility];[address] | | LAB | | | | [address];[place] | | | | | | [address] | | | | + + + + + + | ALP, | 92Comment: Testing | 35 - 115 U/L | EXTERNAL | | | External | performed at [facility];[address] | | LAB | | | | [address];[place] | | | | | | [address] | | | | + + + + + + | AST | 35Comment: SLT | 10 - 45 U/L | EXTERNAL | | | | HEMOLYSISTesting | | LAB | | | | performed at [facility];[address] | | | | | | [facility];[place] | | | | | | [address] | | | | + + + + + + | ALT | 29Comment: Testing | 10 - 65 U/L | EXTERNAL | | | | performed at [facility];[address] | | LAB | | | | [address];[place] | | | | | | [address] | | | | + + + [...] | | | | | | at [facility];[address] [facility] | | | | | | Blvd;[place] [address] | | | | + + + [...] EXTERNAL | | | | performed at [facility];888 | uIU/mL | LAB | | | | [address];[place], [place] | | | | | | [address] | | | | + + + [...] + + | Historically converted procedure from [facility] environment | EXTERNAL LAB | + + [...] | | | | | | ACUTE [place] Testing | | | | | | performed at [facility];[address] | | | | | | [facility];[place], [place] | | | | | | [address] | | | | + + + [...] GROWTH | | | Testing performed at [facility], | | | [address] [place] [address] | | + + + + +---------+ [...] | | study for comparison: None FINDINGS: Jack Setter 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 | | | degenerative [...] study | | for comparison: None FINDINGS: Jack Setter 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 degenerative changes of the [...] NEGATIVE Testing | | | performed at [facility];[address] [place] [address];[place] [address] | | + + + + +---------+ [...] | | | | | | at [facility];[address] [place] [address] | | | | | | [facility];[place] [address] | | | | + + + [...] EXTERNAL | | | | performed at [facility];[address] | | LAB | | | | [address];[place], [place] | | | | | | [address] | | | | + + + [...] EXTERNAL | | | | performed at [facility] | | LAB | | | | [address];[place] | | | | | | [address] | | | | + + + [...] EXTERNAL | | | | performed at [facility];[address] | mmol/L | LAB | | | | [address];[place], [place] | | | | | | [address] | | | | + + + [...] | | | | | [place] [address] | | | | + + + [...] [place] | | | | | | [address] | | | | + + + [...] (500), | | | | | | associate editor Shala Gramajo | | | | [...] EXTERNAL | | | | performed at [facility];[address] | | LAB | | | | [address];[place] | | | | | | [address] | | | | + + + [...] EXTERNAL | | | | performed at [facility];[address] | | LAB | | | | [facility], [place] | | | | | | [address] | | | | + + + [...] LAB | | | | performed at [facility] | | | | | | [address];[place], [place] | | | | | | [address] | | | | + + + [...] EXTERNAL | | | | performed at [facility];[address] | | LAB | | | | [address];[place], [place] | | | | | | [address] | | | | + + + [...] EXTERNAL | | | | performed at [facility];[address] | | LAB | | | | [address];[place] | | | | | | [address] | | | | + + + [...] K/uL | LAB | | | | [facility];[address] | | | | | | [address];[place] [address] | | | | + + + + + + | RED CELL | 4.17Comment: Testing | 3.70 - 5.10 | EXTERNAL | | | COUNT | performed at [facility];[address] | M/uL | LAB | | | | [address];[place] | | | | | | [address] | | | | + + + + + + | Hgb | 14.6Comment: Testing | 11.3 - 15.5 | EXTERNAL | | | | performed at [facility];888 | g/dL | LAB | | | | [address];[place] | | | | | | [address] | | | | + + + + + + | Hematocrit, | 42.7Comment: Testing | 34.0 - 46.0 % | EXTERNAL | | | POC | performed at [facility];[address] | | LAB | | | | [address];[place] | | | | | | [address] | | | | + + + + + + | MCV | 102.3 (H)Comment: | 80.0 - 100.0 fl | EXTERNAL | | | | Testing performed at | | LAB | | | | [facility];[address] | | | | | | [address];[place] [address] | | | | + + + + + + | MCH | 35.0 (H)Comment: Testing | 27.0 - 34.0 pg | EXTERNAL | | | | performed at [facility];[address] | | LAB | | | | [address];[place] | | | | | | [address] | | | | + + + + + + | MCHC | 34.2Comment: Testing | 32.0 - 35.5 | EXTERNAL | | | | performed at [facility];888 | g/dL | LAB | | | | [address];[place] | | | | | | [address] | | | | + + + + + + | RDW-CV | 49.9Comment: Testing | 37 - 53 fl | EXTERNAL | | | | performed at [facility];[address] | | LAB | | | | [address];[place] | | | | | | [address] | | | | + + + + + + | Platelet | 209Comment: Testing | 150 - 400 K/uL | EXTERNAL | | | Count | performed at [facility];[address] | | LAB | | | Plasma | [address];[place] | | | | | | [address] | | | | + + + + + + | MPV | 11.1Comment: Testing | fl | EXTERNAL | | | | performed at [facility];[address] | | LAB | | | | [address];[place] | | | | | | [address] | | | | + + + + + + | RBC | 1+Comment: GIANT | | EXTERNAL | | | Morphology | PLATELETS1+MACROTesting | | LAB | | | | performed at [facility];[address] | | | | | | [address];[place] | | | | | | [address] | | | | | |Testing performed at [facility];[address];[place] [address] | | | | | | | | | | + + + + + + | Differentia | MANUALComment: Testing | | EXTERNAL | | | l Type | performed at [facility] [place];888 | | LAB | | | | [address];[place] | | | | | | [address] | | | | + + + + + + | Segmented | 58Comment: Testing | % | EXTERNAL | | | Neutrophils | performed at [facility] [place];888 | | LAB | | | Manual | [address];[place] | | | | | | [address] | | | | + + + + + + | Lymphocytes | 32Comment: Testing | % | EXTERNAL | | | Manual | performed at [facility] [place];888 | | LAB | | | | [address];[place] | | | | | | [address] | | | | + + + + + + | Monocytes | 9Comment: Testing | % | EXTERNAL | | | Manual | performed at [facility] [place];888 | | LAB | | | | [address];[place] | | | | | | [address] | | | | + + + + + + | Eosinophils | 1Comment: Testing | % | EXTERNAL | | | Manual | performed at [facility] [place];888 | | LAB | | | | [address];[place] | | | | | | [address] | | | | + + + + + + | Absolute | 9.39 (H)Comment: Testing | 1.90 - 7.40 | EXTERNAL | | | Neutrophils | performed at [facility] [place];888 | K/uL | LAB | | | | [address];[place] | | | | | | [address] | | | | + + + + + + | Absolute | 5.18 (H)Comment: Testing | 1.00 - 3.90 | EXTERNAL | | | Lymphocytes | performed at [facility] [place];888 | K/uL | LAB | | | | [address];[place] | | | | | | [address] | | | | + + + + + + | Absolute | 1.46 (H)Comment: Testing | 0.00 - 0.80 | EXTERNAL | | | Monocytes | performed at [facility] [place];888 | K/uL | LAB | | | | [address];[place] | | | | | | [address] | | | | + + + + + + | Absolute | 0.16Comment: Testing | 0.00 - 0.50 | EXTERNAL | | | Eosinophils | performed at [facility] [place];888 | K/uL | LAB | | | | [address];[place] | | | | | | [address] | | | | + + + + + + | Na | 140Comment: Testing | 135 - 143 | EXTERNAL | | | | performed at [facility] [place];888 | mmol/L | LAB | | | | [address];[place] | | | | | | [address] | | | | + + + + + + | K | 2.8 (L)Comment: Testing | 3.5 - 4.9 | EXTERNAL | | | | performed at [facility] [place];888 | mmol/L | LAB | | | | [address];[place] | | | | | | [address] | | | | + + + + + + | Cl | 100Comment: Testing | 99 - 109 mmol/L | EXTERNAL | | | | performed at [facility] [place];888 | | LAB | | | | [address];[place] | | | | | | [address] | | | | + + + + + + | CO2 | 29Comment: Testing | 23 - 32 mmol/L | EXTERNAL | | | | performed at [facility] [place];888 | | LAB | | | | [address];[place] | | | | | | [address] | | | | + + + + + + | Anion Gap | 14Comment: Testing | 5 - 20 mmol/L | EXTERNAL | | | | performed at [facility] [place];888 | | LAB | | | | [address];[place] | | | | | | [address] | | | | + + + + + + | Glucose, | 107 (H)Comment: Testing | 65 - 99 mg/dL | EXTERNAL | | | Fasting | performed at [facility] [place];888 | | LAB | | | | [address];[place] | | | | | | [address] | | | | + + + + + + | BUN | 28 (H)Comment: Testing | 8 - 25 mg/dL | EXTERNAL | | | | performed at [facility];888 | | LAB | | | | [address];[place] | | | | | | [address] | | | | + + + + + + | Creatinine | 2.4 (H)Comment: Testing | 0.50 - 1.00 | EXTERNAL | | | | performed at [facility];888 | mg/dL | LAB | | | | [address];[place] | | | | | | [address] | | | | + + + + + + | BUN/Creatin | 12Comment: Testing | | EXTERNAL | | | ine Ratio | performed at [facility];888 | | LAB | | | | [address];[place] | | | | | | [address] | | | | + + + + + + | Calcium | 8.1 (L)Comment: Testing | 8.5 - 10.5 | EXTERNAL | | | | performed at [facility];888 | mg/dL | LAB | | | | [address];[place] | | | | | | [address] | | | | + + + + + + | Protein, | 9.3 (H)Comment: Testing | 6.3 - 8.2 g/dL | EXTERNAL | | | Total | performed at [facility];888 | | LAB | | | | [address];[place] | | | | | | [address] | | | | + + + + + + | Albumin | 3.3Comment: Testing | 3.3 - 4.8 g/dL | EXTERNAL | | | | performed at [facility];888 | | LAB | | | | [address];[place] | | | | | | [address] | | | | + + + + + + | Globulin | 6.0 (H)Comment: Testing | 1.3 - 4.9 g/dL | EXTERNAL | | | | performed at [facility];888 | | LAB | | | | [address];[place] | | | | | | [address] | | | | + + + + + + | A/G Ratio | 0.5 (L)Comment: Testing | 1.0 - 2.4 | EXTERNAL | | | | performed at [facility];888 | | LAB | | | | [address];[place] | | | | | | [address] | | | | + + + + + + | Bilirubin | 0.4Comment: Testing | 0.1 - 1.5 mg/dL | EXTERNAL | | | Total | performed at [facility];888 | | LAB | | | | [address];[place] | | | | | | [address] | | | | + + + + + + | ALP, | 129 (H)Comment: Testing | 35 - 115 U/L | EXTERNAL | | | External | performed at [facility];888 | | LAB | | | | [address];[place] | | | | | | [address] | | | | + + + + + + | AST | 39Comment: Testing | 10 - 45 U/L | EXTERNAL | | | | performed at [facility];888 | | LAB | | | | [address];[place] | | | | | | [address] | | | | + + + + + + | ALT | 38Comment: Testing | 10 - 65 U/L | EXTERNAL | | | | performed at [facility];888 | | LAB | | | | [address];[place] | | | | | | [address] | | | | + + + [...] | | | | | | at [facility];[address] | | | | | | [address];[place] [address] | | | | + + + + + + | CK, Total | 151Comment: Testing | 30 - 240 U/L | EXTERNAL | | | | performed at [facility];888 | | LAB | | | | [address];[place] | | | | | | [address] | | | | + + + [...] | | | | | performed at [facility];[address] | | | | | | [address];[place] | | | | | | [address] | | | | + + + + + + | aPTT, | 26Comment: Testing | 23 - 32 seconds | EXTERNAL | | | Patient | performed at [facility];888 | | LAB | | | | [address];[place] | | | | | | [address] | | | | + + + + + + | CK-MB | 3.9 (H)Comment: Testing | 0.5 - 3.6 ng/mL | EXTERNAL | | | | performed at [facility];888 | | LAB | | | | [address];[place] | | | | | | [address] | | | | + + + [...] | | | | | | ACUTE [place] Testing | | | | | | performed at [facility];888 | | | | | | [address] [facility];[place], [place] | | | | | | [address] | | | | + + + [...]
--- OUTSIDE RECORDS SUMMARY | ~2019-06-03 | XMS | Encounter Summary ---
Demographics + + + | Address | [address] | | | [place] [address] | + + + | Home Phone | | + + + | Preferred Language | Unknown | + + + | Marital Status | Single | + + + | Anabaptism Affiliation | 1041 | + + + | Race | Unknown | + + + | Ethnic Group | Unknown | + + + Author + + + | Author | [facility] | | | and [place] | + + + | Organization | [facility] | | [...] Team Providers + +------+ + | Care Horticultural Agent Name | Role | Phone | + +------+ + | Rick Osorio DO | PCP | | + +------+ + Encounter Details +--------+ + + + + | Date | Type | Department | Care Team | Description | +--------+ + + + + | 02/01/ | Orders Only | [facility] | Filipe Malin V, | | | 2018 | | CONVERSION [address] | MD [address] | | | | | [address] | [address] [place], [place] | | | | | [place], [place] | [address] | | | | | [address] | | | | | | [phone] | | | +--------+ + + + [...] + +--------+ + + + | ECHO INTERPRETATION | Routin | 02/01/2018 | | Results for this | | OF OUTSIDE FILMS | e | 4:28 PM | | procedure are in the | | | | PDT | | results section. | + +--------+ + + + documented in this encounter Results ECHO Interpretation of Outside Films (02/01/2018 4:28 PM PDT) + + | Specimen | + + | | + + + + + | Impressions | Performed At | + + + | 1. The left ventricle is normal in size, mild concentric hypertrophy | | | and normal systolic function EF 55-60%. 2. The right ventricle is | | | normal in size and function. 3. Mild mitral regurgitation and | | | moderately dilated left atrium. 4. There is no pericardial effusion. | | + + + + + + | Narrative | Performed At | + + + | Patient Name: COLE ERNST Date of : 1945 | | | Performing Physician: Conor Garcia | | | | | | ------REPORT ADDENDED------ INDICATIONS A-fib | | | CONCLUSIONS 1. The left ventricle is normal in size, | | | mild concentric hypertrophy and normal systolic function EF 55-60%. | | | 2. The right ventricle is normal in size and function. 3. Mild mitral | | | regurgitation and moderately dilated left atrium. 4. There is no | | | pericardial effusion. FINDINGS -------- ECG rhythm: Atrial | | | fibrillation. Study: A 2-dimensional transthoracic echocardiogram | | | with m-mode, spectral and color flow Doppler was perfomed. Study: | | | This was a technically adequate study. Left Ventricle: Overall left | | | ventricular systolic function is normal with, an EF between 55 - 60 %. | | | Left Ventricle: The left ventricle cavity size is normal. Left | | | Ventricle: There is mild concentric left ventricular hypertrophy. | | | Left Ventricle: No regional wall motion abnormalities. Right | | | Ventricle: The right ventricle is normal in size and function. Left | | | Atrium: The left atrium is moderately enlarged. Right Atrium: The | | | right atrial size is normal. Aortic Valve: The aortic valve is mildly | | | calcified. Aortic Valve: There is no evidence of aortic | | | regurgitation. Aortic Valve: There is no evidence of aortic stenosis. | | | Aortic Valve: Peak/mean gradient across the valve is | | | 6.82mmHg/3.71mmHg. Mitral Valve: The mitral valve is normal. Mitral | | | Valve: Mild mitral regurgitation is present. Tricuspid Valve: The | | | tricuspid valve appears structurally normal. Tricuspid Valve: Trace | | | tricuspid regurgitation present. Tricuspid Valve: There is no | | | evidence of pulmonary hypertension. Tricuspid Valve: The right | | | ventricular systolic pressure (pulmonary artery systolic pressure), as | | | measured by Doppler, is 17.60mmHg. Pulmonic Valve: The pulmonic | | | valve is normal. Pulmonic Valve: Mild pulmonic regurgitation. | | | Pericardium: There is no pericardial effusion. Pericardium: No | | | pleural effusion seen. IVC/Hepatic Veins: The IVC is normal size | | | (1.5-2.5cm) and collapses >50% with sniff, consistent with central | | | venous pressures of 5-10mmHg. Aorta: The aortic root, ascending aorta | | | and aortic arch are normal in size. MEASUREMENTS | | | Ao asc: 3.22 cm Ao Diam: 2.[address] junct: 3.09 cm IVC: | | | 2.25 cm LA Diam: 5.00 cm LA Major: 6.17 cm EDV(Teich): | | | 107.24 ml IVSd: 1.14 cm LVIDd: 4.79 cm LVPWd: 1.14 cm | | | LVOT Area: 3.33 cm2 LVOT Diam: 2.06 cm %FS: 26.43 % | | | EF(Teich): 51.67 % ESV(Teich): 51.82 ml LVIDs: 3.52 cm | | | SV(Teich): 55.42 ml RV Major: 6.22 cm RVIDd: 2.37 cm TV | | | Nathalia Diam: 2.64 cm Ao Root: 2.99 cm Ao Diam SVals: 3.08 cm | | | LVEF MOD A2C: 52.30 % SV MOD A2C: 36.14 ml LVEF MOD A4C: | | | 53.89 % SV MOD A4C: 50.13 ml EF Biplane: 53.63 % LVEDV MOD | | | BP: 82.02 ml LVESV MOD BP: 38.03 ml LVEDV MOD A2C: 69.10 ml | | | LVLd A2C: 6.62 cm LVEDV MOD A4C: 93.02 ml LVLd A4C: 6.96 | | | cm LVESV MOD A2C: 32.95 ml LVLs A2C: 5.95 cm LVESV MOD A4C: | | | 42.88 ml LVLs A4C: 5.80 cm LAESV(A-L): 92.10 ml LAESV | | | Index (A-L): 45.82 ml/m2 LAAs A2C: 22.15 cm2 LAESV A-L A2C: | | | 71.25 ml LALs A2C: 5.84 cm LAAs A4C: 28.64 cm2 LAESV A-L | | | A4C: 104.24 ml LALs A4C: 6.68 cm RAAs: 14.65 cm2 RAESV | | | A-L: 33.90 ml RAESV MOD: 34.21 ml RALs: 5.37 cm AV maxPG: | | | 6.81 mmHg AV meanP.70 mmHg AV Vmax: 1.30 m/s AV Vmean: | | | 0.90 m/s AV VTI: 24.74 cm BAYRON Vmax: 2.36 cm2 BAYRON (VTI): | | | 2.24 cm2 LVOT maxP.41 mmHg LVOT meanP.88 mmHg LVSI | | | Dopp: 27.63 ml/m2 LVSV Dopp: 55.54 ml LVOT Vmax: 0.92 m/s | | | LVOT Vmean: 0.64 m/s LVOT VTI: 16.66 cm MV A Billy: 0.03 m/s | | | MV Dec Pitt: 9.74 m/s2 MV DecT: 91.63 ms MV E Billy: 0.89 | | | m/s MV E/A Ratio: 26.03 MV PHT: 26.57 ms MVA By PHT: 8.27 | | | cm2 Septal e': 0.06 m/s Septal E/e': 12.90 Lateral e': | | | 0.09 m/s Lateral E/e': 8.96 RAP: 5 mmHg RVSP: 17.59 mmHg | | | TR maxP.59 mmHg TR Vmax: 1.77 m/s Pulper: NAIF | | | Authenticated by: Conor Kempmeriden Report Date/Time: -- | | | 10_[id number]_2:51:12 | | + + + + + | Procedure Note | + + | Manuel Blake Conversion - 01/11/2019 3:56 PM PDT Patient Name: Gwyn ERNST of | | : 1945 Performing Physician: Conor | | Jose ------REPORT | | ADDENDED------INDICATIONS A-fib CONCLUSIONS 1. The left ventricle is | | normal in size, mild concentric hypertrophy and normal systolic function EF 55-60%.2. | | The right ventricle is normal in size and function.3. Mild mitral regurgitation and | | moderately dilated left atrium.4. There is no pericardial effusion. FINDINGS--------ECG | | rhythm: Atrial fibrillation.Study: A 2-dimensional transthoracic echocardiogram with | | m-mode, spectral and color flow Doppler was perfomed.Study: This was a technically | | adequate study.Left Ventricle: Overall left ventricular systolic function is normal | | with, an EF between 55 - 60 %.Left Ventricle: The left ventricle cavity size is | | normal.Left Ventricle: There is mild concentric left ventricular hypertrophy.Left | | Ventricle: No regional wall motion abnormalities.Right Ventricle: The right ventricle is | | normal in size and function.Left Atrium: The left atrium is moderately enlarged.Right | | Atrium: The right atrial size is normal.Aortic Valve: The aortic valve is mildly | | calcified.Aortic Valve: There is no evidence of aortic regurgitation.Aortic Valve: There | | is no evidence of aortic stenosis.Aortic Valve: Peak/mean gradient across the valve is | | 6.82mmHg/3.71mmHg.Mitral Valve: The mitral valve is normal.Mitral Valve: Mild mitral | | regurgitation is present.Tricuspid Valve: The tricuspid valve appears structurally | | normal.Tricuspid Valve: Trace tricuspid regurgitation present.Tricuspid Valve: There is | | no evidence of pulmonary hypertension.Tricuspid Valve: The right ventricular systolic | | pressure (pulmonary artery systolic pressure), as measured by Doppler, is | | 17.60mmHg.Pulmonic Valve: The pulmonic valve is normal.Pulmonic Valve: Mild pulmonic | | regurgitation.Pericardium: There is no pericardial effusion.Pericardium: No pleural | | effusion seen.IVC/Hepatic Veins: The IVC is normal size (1.5-2.5cm) and collapses >50% | | with sniff, consistent with central venous pressures of 5-10mmHg.Aorta: The aortic root, | | ascending aorta and aortic arch are normal in size. MEASUREMENTS Ao asc: | | 3.22 cmAo Diam: 2.[address] junct: 3.09 cmIVC: 2.25 cmLA Diam: 5.00 cmLA Major: | | 6.17 cmEDV(Teich): 107.24 mlIVSd: 1.14 cmLVIDd: 4.79 cmLVPWd: 1.14 cmLVOT | | Area: 3.33 [id number] Diam: 2.06 cm%FS: 26.43 %EF(Teich): 51.67 %ESV(Teich): | | 51.82 mlLVIDs: 3.52 cmSV(Teich): 55.42 mlRV Major: 6.22 cmRVIDd: 2.37 cmTV Nathalia | | Diam: 2.64 cmAo Root: 2.99 cmAo Diam SVals: 3.08 cmLVEF MOD A2C: 52.30 %SV MOD | | A2C: 36.14 mlLVEF MOD A4C: 53.89 %SV MOD A4C: 50.13 mlEF Biplane: 53.63 %LVEDV | | MOD BP: 82.02 mlLVESV MOD BP: 38.03 mlLVEDV MOD A2C: 69.10 mlLVLd A2C: 6.62 | | cmLVEDV MOD A4C: 93.02 mlLVLd A4C: 6.96 cmLVESV MOD A2C: 32.95 mlLVLs A2C: 5.95 | | cmLVESV MOD A4C: 42.88 mlLVLs A4C: 5.80 cmLAESV(A-L): 92.10 mlLAESV Index (A-L): | | 45.82 ml/m2LAAs A2C: 22.15 [id number] A-L A2C: 71.25 mlLALs A2C: 5.84 cmLAAs A4C: | | 28.64 [id number] A-L A4C: 104.24 mlLALs A4C: 6.68 cmRAAs: 14.65 [id number] A-L: | | 33.90 mlRAESV MOD: 34.21 mlRALs: 5.37 cmAV maxP.81 mmHgAV meanP.70 | | mmHgAV Vmax: 1.30 m/Sorin Vmean: 0.90 m/Sorin VTI: 24.74 cmAVA Vmax: 2.36 cm2AVA | | (VTI): 2.24 [id number] maxP.41 mmHgLVOT meanP.88 mmHgLVSI Dopp: 27.63 | | ml/m2LVSV Dopp: 55.54 mlLVOT Vmax: 0.92 m/sLVOT Vmean: 0.64 m/sLVOT VTI: 16.66 | | cmMV A Billy: 0.03 m/sMV Dec Pitt: 9.74 m/s2MV DecT: 91.63 msMV E Billy: 0.89 m/sMV | | E/A Ratio: 26.03MV PHT: 26.57 msMVA By PHT: 8.27 [id number] e': 0.06 m/sSeptal | | E/e': 12.90Lateral e': 0.09 m/sLateral E/e': 8.96RAP: 5 mmHgRVSP: 17.59 mmHgTR | | maxP.59 mmHgTR Vmax: 1.77 m/s Pulper: DHAuthenticated by: Conor | | [facility] Date/Time: -- [id number]:51:12 IMPRESSION: 1. The left ventricle is | | normal in size, mild concentric hypertrophy and normal systolic function EF 55-60%.2. | | The right ventricle is normal in size and function.3. Mild mitral regurgitation and | | moderately dilated left atrium.4. There is no pericardial effusion. | |MEASUREMENTS | | | |Ao asc: 3.22 cm | |Ao Diam: 2.99 cm | |Ao st junct: 3.09 cm | |IVC: 2.25 cm | |LA Diam: 5.00 cm | |LA Major: 6.17 cm | |EDV(Teich): 107.24 ml | |IVSd: 1.14 cm | |LVIDd: 4.79 cm | |LVPWd: 1.14 cm | |LVOT Area: 3.33 cm2 | |LVOT Diam: 2.06 cm | |%FS: 26.43 % | |EF(Teich): 51.67 % | |ESV(Teich): 51.82 ml | |LVIDs: 3.52 cm | |SV(Teich): 55.42 ml | |RV Major: 6.22 cm | |RVIDd: 2.37 cm | |TV Nathalia Diam: 2.64 cm | |Ao Root: 2.99 cm | |Ao Diam SVals: 3.08 cm | |LVEF MOD A2C: 52.30 % | |SV MOD A2C: 36.14 ml | |LVEF MOD A4C: 53.89 % | |SV MOD A4C: 50.13 ml | |EF Biplane: 53.63 % | |LVEDV MOD BP: 82.02 ml | |LVESV MOD BP: 38.03 ml | |LVEDV MOD A2C: 69.10 ml | |LVLd A2C: 6.62 cm | |LVEDV MOD A4C: 93.02 ml | |LVLd A4C: 6.96 cm | |LVESV MOD A2C: 32.95 ml | |LVLs A2C: 5.95 cm | |LVESV MOD A4C: 42.88 ml | |LVLs A4C: 5.80 cm | |LAESV(A-L): 92.10 ml | |LAESV Index (A-L): 45.82 ml/m2 | |LAAs A2C: 22.15 cm2 | |LAESV A-L A2C: 71.25 ml | |LALs A2C: 5.84 cm | |LAAs A4C: 28.64 cm2 | |LAESV A-L A4C: 104.24 ml | |LALs A4C: 6.68 cm | |RAAs: 14.65 cm2 | |RAESV A-L: 33.90 ml | |RAESV MOD: 34.21 ml | |RALs: 5.37 cm | |AV maxP.81 mmHg | |AV meanP.70 mmHg | |AV Vmax: 1.30 m/s | |AV Vmean: 0.90 m/s | |AV VTI: 24.74 cm | |BAYRON Vmax: 2.36 cm2 | |BAYRON (VTI): 2.24 cm2 | |LVOT maxP.41 mmHg | |LVOT meanP.88 mmHg | |LVSI Dopp: 27.63 ml/m2 | |LVSV Dopp: 55.54 ml | |LVOT Vmax: 0.92 m/s | |LVOT Vmean: 0.64 m/s | |LVOT VTI: 16.66 cm | |MV A Billy: 0.03 m/s | |MV Dec Pitt: 9.74 m/s2 | |MV DecT: 91.63 ms | |MV E Billy: 0.89 m/s | |MV E/A Ratio: 26.03 | |MV PHT: 26.57 ms | |MVA By PHT: 8.27 cm2 | |Septal e': 0.06 m/s | |Septal E/e': 12.90 | |Lateral e': 0.09 m/s | |Lateral E/e': 8.96 | |RAP: 5 mmHg | |RVSP: 17.59 mmHg | |TR maxP.59 mmHg | |TR Vmax: 1.77 m/s | | | |Pulper: NAIF | |Authenticated by: Conor Garcia | |Report Date/Time: -- 17_[id number]_1:51:12 | | | |IMPRESSION: | |1. The left ventricle is normal in size, mild concentric hypertrophy and normal systolic fu nction EF 55-60%. | |2. The right ventricle is normal in size and function. | |3. Mild mitral regurgitation and moderately dilated left atrium. | |4. There is no pericardial effusion. | + + documented in this encounter Visit Diagnoses Not on filedocumented in this encounter"
--- OUTSIDE RECORDS SUMMARY | ~2019-06-03 | XMS | Encounter Summary ---
Demographics + + + | Address | [address] | | | [place] [address] | + + + | Home Phone | | + + + | Preferred Language | Unknown | + + + | Marital Status | Single | + + + | Christianity Affiliation | 1041 | + + + | Race | Unknown | + + + | Ethnic Group | Unknown | + + + Author + + + | Author | [facility] | | | and [place] | + + + | Organization | [facility] | | | [...] Team Providers + +------+ + | Care Search Engine Optimization Consultant Name | Role | Phone | + +------+ + | Yovani Santana MD | PCP | | + +------+ + Encounter Details +--------+ + + + + | Date | Type | Department | Care Team | Description | +--------+ + + + + | 05/10/ | Hospital | [facility] | Gary Melendez, | Hypoxemia; | | 2014 | Encounter | MED [facility] XRAY [address] | MD [address] | Restrictive lung | | | | [place] | [place], [place] | disease | | | | [place] [address] | [address] | | | | | [phone] | | | | | | | Rad, [facility] | | +--------+ + + + + [...] | + +--------+ + + + | FL SNIFF TEST | Routin | 05/10/2014 | Hypoxemia | Results for this | | | e | 1:22 PM | Restrictive lung | procedure are in the | | | | PST | disease | results section. | + +--------+ + + + documented in this encounter Results FL Sniff Test (05/10/2014 1:22 PM PST) + + | Specimen | + + | | + + + + + | Narrative | Performed At | + + + | FL SNIFF TEST 05/10/2014 1:21 PM HISTORY: Elevated right | MISCELANIOUS | | diaphragm. COMPARISON: Chest x-ray dated 01/25/2014. PROTOCOL: | LAB | | With the patient in the upright position, fluoroscopic images of the | | | diaphragms were obtained during inspiration, expiration, and with | | | sniffing maneuver. FINDINGS: The right hemidiaphragm is | | | moderately elevated but does show normal excursion during inspiration | | | and expiration. There is normal motion of the left hemidiaphragm. | | | Clips are in the bilateral upper abdomen. IMPRESSION - Moderate | | | elevation of right diaphragm with normal motion. Normal left | | | hemidiaphragm. Dictated and Signed by: Garth Piedra MD | | | Electronically signed: 05/10/2014 4:20 PM | | + + + + + | Procedure Note | + + | Hayden, Rad Results In - 05/10/2014 4:23 PM PST FL SNIFF TEST 05/10/2014 1:21 PM | | | | HISTORY: Elevated right diaphragm. | | | | COMPARISON: Chest x-ray dated 01/25/2014. | | | | PROTOCOL: With the patient in the upright position, fluoroscopic images of the | | diaphragms were obtained during inspiration, expiration, and with sniffing | | maneuver. | | | | FINDINGS: | | The right hemidiaphragm is moderately elevated but does show normal excursion | | during inspiration and expiration. There is normal motion of the left | | hemidiaphragm. Clips are in the bilateral upper abdomen. | | | | IMPRESSION - | | Moderate elevation of right diaphragm with normal motion. | | | | Normal left hemidiaphragm. | | | | Dictated and Signed by: Garth Piedra MD | | Electronically signed: 05/10/2014 4:20 PM | + + + +---------+ + + | Performing | Address | City/State/Zipcode | Phone Number | | Organization | | | | + +---------+ + + | [facility] | | | [phone] | + +---------+ + + | MISC[facility] | | | [phone] | + +---------+ + + documented in this encounter Visit Diagnoses + + | Diagnosis | + + | Hypoxemia | + + | Restrictive lung disease Other diseases of lung, not elsewhere classified | + + documented in this encounter"
--- OUTSIDE RECORDS SUMMARY | ~2019-06-03 | XMS | Encounter Summary ---
Demographics + + + | Address | [address] | | | [place] [address] | + + + | Home Phone | | + + + | Preferred Language | Unknown | + + + | Marital Status | Single | + + + | Quaker Affiliation | 1041 | + + + | Race | Unknown | + + + | Ethnic Group | Unknown | + + + Author + + + | Author | [facility] | | | and [place] | + + + | Organization | [facility] | | | and [...] Team Providers + +------+ + | Care Raker Buffing Wheel Name | Role | Phone | + +------+ + | Rick Osorio DO | PCP | | + +------+ + Encounter Details +--------+ + + + + | Date | Type | Department | Care Team | Description | +--------+ + + + + | 11/15/ | Orders Only | [facility] | Emil Oliva MD | | | 2014 | | NEPRHOLOGY [place] | [address] [facility] | | | | | [address] | [address] [place], [place] | | | | | [address] [place], [place] | [address] | | | | | [address] | | | | | | [phone] | | | +--------+ + + + [...] | EXTERNAL LAB: CBC | Routin | 11/15/2014 | | Results [...] + + + | RED CELL | 3.16 (A) | 3.8 - 5.1 10 | EXTERNAL | | | COUNT | | | LAB | | + + + + + + | Hgb | 11.1 (A) | 12.0 - 16.0 [...] | | | LAB | | | [place] | | | | | + + [...]
--- OUTSIDE RECORDS SUMMARY | ~2019-06-03 | XMS | Clinical Summary ---
Demographics + + + | Address | [address] | | | [place] [address] | + + + | Home Phone | | + + + | Preferred Language | Unknown | + + + | Marital Status | | + + + | Taoism Affiliation | 1041 | + + + | Race | Unknown | + + + | Ethnic Group | Unknown | + + + Author + + + | Author | [facility] [employer] [employer] (Historical as of | | | 01-06-19) | + + + | Organization | [facility] [employer] (Historical as of | | | 01-06-19) | + + + | Address | Unknown | + + + | Phone | Unavailable | + + + Support + + +---------+ + | Name | Relationship | Address | Phone | + + +---------+ + | Annie Tipton | ECON | Unknown | | + + +---------+ + Care Team Providers + +------+ + | Care Freight Brake Operator Name | Role | Phone | + +------+ + | Rick Osorio DO | PP | | + +------+ + Allergies + + + + + + | Active Allergy | Reactions | Severity | Noted | Comments | | | | | Date | | + + + + + + | Codeine | Nausea and Vomiting | Low | 04/23/20 | | | | | | 13 | | + + + + + + Current Medications + + +---------+---------+------+------+-------+ | Prescription | Sig. | Disp. | Refills | Star | End | Statu | | | | | | t | Date | s | | | | | | Date | | | + + +---------+---------+------+------+-------+ | cycloSPORINE | Take 75 mg by mouth | | | | | Activ | | (SANDIMMUNE) 25 MG | 2 (two) times daily. | | | | | e | | capsule | | | | | | | + + +---------+---------+------+------+-------+ | fluticasone | 1 spray by Each Nare | | | | | Activ | | (FLONASE) 50 MCG/ACT | route daily. | | | | | e | | nasal | | | | | | | + + +---------+---------+------+------+-------+ | metoprolol | Take 100 mg by mouth | | | | | Activ | | (LOPRESSOR) 100 MG | 2 (two) times | | | | | e | | tablet | daily. | | | | | | + + +---------+---------+------+------+-------+ | levothyroxine | Take 125 mcg by | | | | | Activ | | (SYNTHROID, | mouth every morning | | | | | e | | LEVOTHROID) 125 MCG | before breakfast. | | | | | | | tablet | | | | | | | + + +---------+---------+------+------+-------+ | azaTHIOprine | Take 50 mg by mouth | | | | | Activ | | (IMURAN) 50 MG | daily. | | | | | e | | tablet | | | | | | | + + +---------+---------+------+------+-------+ | vitamin B-12 | Take 1,000 mcg by | | | | | Activ | | (CYANOCOBALAMIN) | mouth daily. | | | | | e | | 1000 MCG tablet | | | | | | | + + +---------+---------+------+------+-------+ | Cholecalciferol | Take 2,000 Units by | | | | | Activ | | 2000 UNITS CAPS | mouth daily. | | | | | e | + + +---------+---------+------+------+-------+ | gabapentin | Take 1 capsule by | 60 | 0 | 08/3 | | Activ | | (NEURONTIN) 400 MG | mouth 2 (two) times | capsule | | 0/20 | | e | | capsule | daily. | | | 15 | | | + + +---------+---------+------+------+-------+ | Vit-Fe | Take 1 tablet by | 30 | 0 | 08/3 | | Activ | | Fumarate-FA | mouth daily. | tablet | | 0/20 | | e | | ( | | | | 15 | | | | MULTIVITAMIN & | | | | | | | | MINERALS W IRON/FA) | | | | | | | | 27-0.8 MG TABS | | | | | | | | tablet | | | | | | | + + +---------+---------+------+------+-------+ | aspirin EC 81 MG | Take 1 tablet by | 30 | 0 | 08/3 | | Activ | | EC tablet | mouth daily with | tablet | | 0/20 | | e | | | breakfast. | | | 15 | | | + + +---------+---------+------+------+-------+ | lactobacillus | Take 1 packet by | 60 | 3 | 09/1 | | Activ | | (FLORANEX) granules | mouth 2 (two) times | packet | | 4/20 | | e | | | daily. | | | 15 | | | + + +---------+---------+------+------+-------+ | magnesium oxide | Take 1 tablet by | 30 | 1 | 09/1 | | Activ | | (MAG-OX) 400 MG | mouth daily. Hold | tablet | | 4/20 | | e | | tablet | for loose stools | | | 15 | | | | | which this | | | | | | | | medication can cause | | | | | | + + +---------+---------+------+------+-------+ Active Problems + + + | Problem | Noted Date | + + + | Feve | 01/28/2015 | + + + | Intestinal infection due to Clostridium difficile | 01/28/2015 | + + + | Other severe protein-calorie malnutrition | 01/15/2015 | + + + | Immunosuppression (HCC) | 01/14/2015 | + + + | Macrocytosis without anemia | 01/14/2015 | + + + | CKD (chronic kidney disease), stage III | 06/11/2013 | + + + | Liver replaced by transplant | 04/23/2013 | + + + | Essential hypertension, benign | 04/23/2013 | + + + | Stroke | 04/23/2013 | + + + | Dyslipidemia | 04/23/2013 | + + + | Hyperuricemia | 04/23/2013 | + + + | Anemia | 04/23/2013 | + + + | Proteinuria | 04/23/2013 | + + + | Hypothyroidism | 04/23/2013 | + + + | Osteoarthritis | 04/23/2013 | + + + | Vitamin D deficiency | 04/23/2013 | + + + Resolved Problems + + + + | Problem | Noted | Resolved | | | Date | Date | + + + + | Hypokalemia | 01/15/20 | | | | 15 | 5 | + + + + | NSTEMI (non-ST elevated myocardial infarction) | 01/15/20 | | | | 15 | 5 | + + + + | Leukocytosis, unspecified | 01/15/20 | | | | 15 | 5 | + + + + | Hypophosphatemia | 01/15/20 | | | | 15 | 5 | + + + + | ZULAY (acute kidney injury) | 04/23/20 | | | | 13 | 5 | + + + + Immunizations + + + + | Name | Dates Previously Given | Next Due | + + + + | Pneumococcal | 01/29/2015 | | | Polysaccharide | | | | 23-valent | | | + + + + Family History + + +------+ + | Medical History | Relation | Name | Comments | + + +------+ + | Stroke | Brother | | | + + +------+ + | Diabetes | Father | | | + + +------+ + | Kidney [...] + + +---------+ + | Yes | 0 | 0.0 | beer / night | | | Standard | | | | | drinks or | | | | | | | | | | equivalen | | | | | t | | | + + +---------+ + + + + | Sex Assigned at | Date Recorded | | | | + + + | Not on file | | + + + Last Filed Vital Signs + + + + | Vital Sign | Reading | Time Taken | + + + + | Blood Pressure | 144/79 | 02/03/2015 11:41 AM PDT | + + + + | Pulse | 64 | 02/03/2015 11:41 AM PDT | + + + + | Temperature | 36.9 C (98.4 F) | 02/03/2015 11:41 AM PDT | + + + + | Respiratory Rate | 18 | 02/03/2015 11:41 AM PDT | + + + + | Oxygen Saturation | 97% | 02/03/2015 11:41 AM PDT | + + + + | Inhaled Oxygen | - | - | | Concentration | | | + + + + | Weight | 97.8 kg (215 lb 9.8 | 02/03/2015 3:27 AM PDT | | | oz) | | + + + + | Height | 160 cm (5' 3") | 01/31/2015 3:13 PM PDT | + + + + | Body Mass Index | 38.19 | 02/03/2015 3:27 AM PDT | + + + + Plan of [...] | + + + + + | DEXA SCAN SCREENING | | | | | | 1 | | | + + + + + | Vaccine: | | 01/29/2015 | | | Pneumococcal 65+ | 6 | | | | Low/Medium Risk (2 | | | | | of 2 - PCV13) | | | | + + + + + | Vaccine: Influenza | | 02/12/2014 | | | (#1) | 9 | | | + + + + + Results Not on filefrom Last 3 Months Insurance + +--------+ +--------+-------+---------+ | Payer | Benefi | Subscriber | Type | Phone | Address | | | t Plan | ID | | | | | | / | | | | | | | Group | | | | | + +--------+ +--------+-------+---------+ | [place] - [place]IC | [place]-GEN | [id number] | Medica | | | | | RIKKI | | re | | | + +--------+ +--------+-------+---------+ + +--------+ +--------+ + + | Guarantor Name | Accoun | Relation to | Date | Phone | Billing Address | | | t Type | Patient | of | | | | | | | | | | + +--------+ +--------+ + + | OPAL ERNST | Person [birth year] Self [birth year] Home: | [address] | | | al/Fam | | 1946 | [phone] | | | [place] | | | [phone] | [place] | | | | | | | [address] | + +--------+ +--------+ + +
--- OUTSIDE RECORDS SUMMARY | ~2019-06-03 | XMS | Encounter Summary ---
Demographics + + + | Address | [address] | | | [place] [address] | + + + | Home Phone | | + + + | Preferred Language | Unknown | + + + | Marital Status | Single | + + + | Hinduism Affiliation | 1041 | + + + [...] Team Providers + +------+ + | Care Solar Process Engineer Name | Role | Phone | [...] [address] | Dx) | | | | [place], | [place], [place] | | | | | [place] [address] | [address] | | | | | [phone] | | | +--------+ + + + [...]
--- OUTSIDE RECORDS SUMMARY | ~2019-06-03 | XMS | Encounter Summary ---
Demographics + + + | Address | [address] | | | [place] [address] | + + + | Home Phone | | + + + | Preferred Language | Unknown | + + + | Marital Status | Unknown | + + + | Spiritism Affiliation | Unknown | + + + | Race | Unknown | + + + | Ethnic Group | Unknown | + + + Author + + + | Author | [facility] | + + + | Organization | [facility] | + + + | Address | Unknown | + + + | Phone | Unavailable | + + + Care Team Providers + +------+ + | Care Molder Closed Molds Name | Role | Phone | + [...] | | | | | [place], | [place], [place] | | | | | [place] [address] | [address] | | | | | [phone] | | | +--------+ + + + [...]
--- OUTSIDE RECORDS SUMMARY | ~2019-06-03 | XMS | Encounter Summary ---
Demographics + + + | Address | [address] | | | [place] [address] | + + + | Home Phone | | + + + | Preferred Language | Unknown | + + + | Marital Status | Unknown | + + + | Gnosticism Affiliation | Unknown | + + + | Race | Unknown | + + + | Ethnic Group | Unknown | + + + Author + + + | Author | [facility] | + + + | Organization | [facility] | + + + | Address | Unknown | + + + | Phone | Unavailable | + + + Care Team Providers + +------+ + | Care Manager Transplant Name | Role | Phone | + [...] | | | | | [place], | [place], [place] | | | | | [place] [address] | [address] | | | | | [phone] | | | +--------+ + + + [...]
--- OUTSIDE RECORDS SUMMARY | ~2019-06-03 | XMS | Encounter Summary ---
Demographics + + + | Address | [address] | | | [place] [address] | + + + | Home Phone | | + + + | Preferred Language | Unknown | + + + | Marital Status | Unknown | + + + | Taoist Affiliation | Unknown | + + + | Race | Unknown | + + + | Ethnic Group | Unknown | + + + Author + + + | Author | [facility] | + + + | Organization | [facility] | + + + | Address | Unknown | + + + | Phone | Unavailable | + + + Care Team Providers + +------+ + | Care Medical Services Coordinator Name | Role | Phone | [...] + + | 01/28/ | Emergency | [facility] Emergency | | | | 2014 | | Department [address] | | | | | | [address] | | | | | | [facility] | | | | | | [place], [place] | | | | | | [address] | | | | | | [phone] | | | +--------+ + + + [...]
--- OUTSIDE RECORDS SUMMARY | ~2019-06-03 | XMS | Encounter Summary ---
Demographics + + + | Address | [address] | | | [place] [address] | + + + | Home Phone | | + + + | Preferred Language | Unknown | + + + | Marital Status | Single | + + + | Taoist Affiliation | 1041 | + + + | Race | Unknown | + + + | Ethnic Group | Unknown | + + + Author + + + | Author | [facility] | | | and [place] | + + + | Organization | [facility] | | | [...] Team Providers + +------+ + | Care Passenger Car Inspector Name | Role | Phone | + +------+ + | Rick Osorio DO | PCP | | + +------+ + Encounter Details +--------+ + + + + | Date | Type | Department | Care Team | Description | +--------+ + + + + | 12/05/ | Orders Only | [facility] | Emil Oliva MD | | | 2013 | | NEPRHOLOGY [place] | [address] | | | | | [address] | [address] [place], [place] | | | | | [address] [place], [place] | [address] | | | | | [address] | | | | | | [phone] | | | +--------+ + + + [...]
--- OUTSIDE RECORDS SUMMARY | ~2019-06-03 | XMS | Clinical Summary ---
Demographics + + + | Address | [address] | | | [place] [address] | + + + | Home Phone | | + + + | Preferred Language | Unknown | + + + | Marital Status | Unknown | + + + | Buddhist Affiliation | Unknown | + + + | Race | Unknown | + + + | Ethnic Group | Unknown | + + + Author + + + | Author | [facility] | + + + | Organization | [facility] | + + + | Address | Unknown | + + + | Phone | Unavailable | + + + Care Team Providers + +------+ + | Care Bareback Rider Name | Role | Phone | + +------+ + PCP | Unavailable | + +------+ + Source Comments JAYDEN is fully live on both EpicCare Ambulatory and EpicCare InPatient.[facility] Allergies Not on File Medications Not on file Active Problems Not on file Encounters +--------+ + + + + | Date | Type | Specialty | Care Team | Description | +--------+ + + + + | 04/20/ | Documentati | Liver Transplant | Laura Mercado, | | | 2019 | on | | RN | | +--------+ + + + + | 03/28/ | Telephone | Liver Transplant | Laura Mercado, | Liver Transplant | | 2019 | | | RN | Referral | +--------+ + + + + from [...]
--- OUTSIDE RECORDS SUMMARY | ~2019-06-03 | XMS | Clinical Summary ---
Demographics + + + | Address | [address] | | | [place] [address] | + + + | Home Phone | | + + + | Preferred Language | Unknown | + + + | Marital Status | | + + + | Uatsdin Affiliation | 1041 | + + + | Race | Unknown | + + + | Ethnic Group | Unknown | + + + Author + + + | Author | [facility] (Historical as of | | | 01-06-19) | + + + | Organization | [facility] (Historical as of | | | 01-06-19) [...] Team Providers + +------+ + | Care Go Cart Mechanic Name | Role | Phone | [...] | MA - GENERIC | MA-GEN | [id number] | Medica | | | | | [...] | | | | | | | [address] | + +--------+ +--------+ + +
--- OUTSIDE RECORDS SUMMARY | ~2019-06-03 | XMS | Encounter Summary ---
Demographics + + + | Address | [address] | | | [place] [address] | + + + | Home Phone | | + + + | Preferred Language | Unknown | + + + | Marital Status | Single | + + + | Anglican Affiliation | 1041 | + + + | Race | Unknown | + + + | Ethnic Group | Unknown | + + + Author + + + | Author | [facility] | | | and [place] | + + + | Organization | [facility] | | [...] Team Providers + +------+ + | Care Harp Repairer Name | Role | Phone | + +------+ + | Yovani Santana MD | PCP | | + +------+ + Encounter Details +--------+ + + + + | Date | Type | Department | Care Team | Description | +--------+ + + + + | 03/26/ | Hospital | [facility] | Melendez, Gary, | Hypoxemia; Kyphosis | | 2014 | Encounter | [facility] | MD [address] | deformity of spine | | | | FUNCTION [address] | [place], [place] | | | | | [place], | [address] | | | | | [place] [address] | | | | | | [phone] | | | +--------+ + + + [...] Melendez MD 03/27/2014 13:24 | | | [facility] | | + + + + + [...] 03/26/14Electronically signed by: Gary Melendez MD 03/27/2014 13:24[facility] | | [facility] | | | |No prior pulmonary function tests available for comparison. 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
--- OUTSIDE RECORDS SUMMARY | ~2019-06-03 | XMS | Encounter Summary ---
Demographics + + + | Address | [address] | | | [place] [address] | + + + | Home Phone | | + + + | Preferred Language | Unknown | + + + | Marital Status | Single | + + + | Methodist Affiliation | 1041 | + + + | Race | Unknown | + + + | Ethnic Group | Unknown | + + + Author + + + | Author | [facility] | | | and [place] | + + + | Organization | [facility] | | | [...] Team Providers + +------+ + | Care Panel Flow Machine Operator Name | Role | Phone | + +------+ + | Rick Osorio DO | PCP | | + +------+ + Encounter Details +--------+ + + + + | Date | Type | Department | Care Team | Description | +--------+ + + + + | 11/15/ | Orders Only | [facility] | Emil Oliva MD | | | 2014 | | NEPHROLOGY [place] | [address] | | | | | [address] | [address] [place], [place] | | | | | [address] [place], [place] | [address] | | | | | [address] | | | | | | [phone] | | | +--------+ + + + [...]
--- OUTSIDE RECORDS SUMMARY | ~2019-06-03 | XMS | Encounter Summary ---
Demographics + + + | Address | [address] | | | [place] [address] | + + + | Home Phone | | + + + | Preferred Language | Unknown | + + + | Marital Status | Single | + + + | Taoist Affiliation | [id number] | + + + | Race | Unknown | + + + | Ethnic Group | Unknown | + + + Author + + + | Author | [facility] | | | and [place] | + + + | Organization | [facility] | | [...] Team Providers + +------+ + | Care Denture Packer Name | Role | Phone | + +------+ + | Yovani Santana MD | PCP | | + +------+ + Encounter Details +--------+ + + + + | Date | Type | Department | Care Team | Description | +--------+ + + + + | 01/14/ | Hospital | [facility] | Jennifer Hartman MD | Near syncope; | | 2015 - | Encounter | [facility] | [address] | Elevated troponin; | | | | CARE FLOOR [address] | [place] [address] | Non-STEMI (non-ST | | 01/19/ | | [address] | [phone] | elevated myocardial | | 2015 | | [place], [place] | | infarction) ([facility]); | | | | [id number] | | CKD (chronic kidney | | | | [phone] | | disease), | | | | | | unspecified stage; | | | | | | Leukocytosis; ZULAY | | | | | | (acute kidney | | | | | | injury) ([facility]); Liver | | | | | | replaced by | | | | | | transplant ([facility]) | +--------+ + + + + Social [...] Date of Service: 01/19/15 0753 Status: Signed Recycling Program Manager: Emma Hardy MD (Physician) Related Notes: Original Note by Emma Hardy MD (Physician) filed at 01/19/15 0800 [facility] Service: Hospitalist Physician Discharge Summary Patient ID: Cole Ernst 1945 69 y.o. 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 The patient was taken off methadone about 3 weeks prior to admission. Pre vious creatinine was 1.38 and the patient was presented at [facility] in [place] , was found to have elevated troponin of 0.55 and noted to have creatinine of 2.4 and leukoc ytosis and was transferred for rga-GQ-dbmplzdpw SD. HOSPITAL COURSE The patient was admitted with fod-NF-cpmreotlx SD. Cardiology consult was obtained. She was started on aspirin. The patient also was in acute renal failure and nephrology was consulte d. The patient had echocardiogram which showed no wall motion abnormalities. She was restart ed on her beta jnan. The patient also had a nuclear stress test which did not show any is chemia. Most probably this was demand ischemia and elevated troponin possibly contributed to acute renal failure. She will be discharged home on beta jann, aspirin and lipid-lowerin g therapy. The patient also has ctwoh-km-jgaqbtj kidney disease, stage III. Acute renal fail [...] to have severe protein calorie malnutrition and national van truck driver was consulted. Her blood pressures remain stable. [...] Follow up: Ki De Jesus DO [address] [facility] [address] [place] [address] Schedule an appointment as soon as possible for a visit in 4 days Juan Ramey MD [address] [facility] [address] [facility] [address] Schedule an appointment as soon as possible for a visit in 1 week Follow up biopsy results Juju Riggins MD [address] [place] [address] Schedule an appointment as soon as [...] are the prescriptions that you need to pattern duplicator. You may get the following medications from [...] summary. This entry has been created using App[employer]ions Speech Recognition software and [employer]. The entry has been reviewed and there [...] Date of Service: 01/19/15 1300 Status: Signed Recycling Program Manager: Shaista Lin RN (Registered Nurse) Pt discharged via wheel chair on 2 L of oxygen. To [facility] in [place]. Pt alert and o rientedX4. onver alessandro Transaction, Provider Unknown - 01/19/2015 8:20 AM PDT Case Management by PHUONG Roman at 01/19/15819 Author: PHUONG Roman Service: (none) Author Type: Cad Designer Filed: 01/19/15819 Date of Service: 01/19/15819 Status: Signed Recycling Program Manager: PHUONG Roman (Cad Designer) Disposition: [facility] Transportation: facility van All orders, signed [...] 0625 Date of Service: 01/19/15412 Status: Signed Recycling Program Manager: Yady Singh RN (Registered Nurse) Patient resting quietly all night. Medicated once for all over general pain. No further com plaints. VSS. onver alessandro Transaction, Provider Unknown - 01/18/2015 3:21 PM PDT Case Management by PHUONG Roman at 01/18/15 1521 Author: PHUONG Roman Service: (none) Author Type: Cad Designer Filed: 01/18/15 1521 Date of Service: 01/18/15 1521 Status: Signed Recycling Program Manager: PHUONG Roman (Cad Designer) spoke w/ Will at [facility] who reports they can accept and transport pt tomorrow AM. PHUONG Roman osnagela Kirk MD - 01/18/2015 3:10 PM PDT Progress Notes by Rosangela Steinberg MD at 01/18/15 1510 Author: Rosangela Steinberg MD Service: Infectious Disease Author Type: Physician Filed: 01/18/15 5433 Date of Service: 01/18/15 1510 Status: Signed Recycling Program Manager: Rosangela Steinberg MD (Physician) [facility] Service: Infectious Disease Progress Note Hospital Day: [...] and diarrhea. Had initially presented to [facility] in [place] with similar complaints. Was foun d to have an elevated troponin. She was mainly admitted as a non-STEMI. Found to have a leuk ocytosis. Since patient is immunocompromised, she was started empirically on IV ceftriaxone. Chest x-ray showed no infiltrate. Patient denies any recent fevers or chills. She went to [facility] mainly becau se of syncope. [...] extraluminal fluid collection abdomen pelvis without contrast [[id number]] Impression 1. Hypoinflated chest, but no evident infiltrate chest 1 view [[id number]] Impression 1. Indication for study and thus [...] 1445 Date of Service: 01/18/15748 Status: Signed Recycling Program Manager: Emma Hardy MD (Physician) [facility] Service: Hospitalist Progress Note Hospital Day: LOS: [...] (HCC) ASSESSMENT & PLAN 1. Non-ST elevation SD. Possible demand ischemia. Will schedule for nuclear [...] schrader 8. Deconditioning Continue physical therapy and longterm facility placement versus home PT 9. Chronic [...] AM This entry has been created using Appinions Speech Recognition software and [employer]. The entry has been reviewed and there may still exist sound alike word errors. onversion Trans action, Provider Unknown - 01/18/2015 5:16 AM PDT Nurse Progress Note by Yady Singh RN at 01/18/15515 Author: Yady Singh RN Service: (none) Author Type: Registered Nurse Filed: 01/18/152104 Date of Service: 01/18/15515 Status: Signed Recycling Program Manager: Yady Singh RN (Registered Nurse) Pt taken [...] Date of Service: 01/17/15 162 Status: Signed Recycling Program Manager: Jose Maria Espinal MD (Physician) Related Notes: Original Note by Jose Maria Espinal MD (Physician) filed at 01/17/152012 [facility] Service: Hospitalist Progress Note Pt: Cole Ernst AGE/SEX: 69 y.o. female : 1945 ROOM: [address] [place] [address] History of Present Illness: " The patient [...] called EMS. Patient was taken to [facility] in [place]. Susie ent was noted to have a [...] Patient had borderline blood pressure. While at [facility] with systolic in the low 90s. [...] CT done several days ago while in [place]. She also stat es that her vomiting and diarrhea have significantly improved. She denies any fevers, hemat emesis, melena, bright red blood per rectum, hematuria, dysuria, she denies any leg pain or swelling. No palpitations. She states she does have a history of "kidney disease" and was told that it was secondary to cyclosporine. However, she is not seen kidney specialist [facility] e her liver transplant.".....per admitting MD/Dr. Hartman. [...] collected as n oted. I urged the waitstaff to introduce a hat so that sample [...] contrast. Prior study for comparison: None FINDINGS: Testing Machine Operator 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 deg enerative changes of [...] LA/Ao: 1.57 D-E Excursion: 2.11 cm E-F [place]: 0.09 m/s EPSS: 0.48 cm HR: 77.41 [...] TV A Billy: 0.66 m/s TV Dec [place]: 4.36 m/s2 TV Dec Time: 184.41 ms TV E Billy: 0.80 m/s TV E/A Rat io: 1.21 Lathe Scalper Operator: NEDRA Authenticated by: Gil Coronel MD Report [...] nutritional supplements as recommend ed by nutrition service/national van truck driver. Jose Maria Espinal MD 01/17/2015 4:29 PM onversion Transa ction, Provider Unknown - 01/17/2015 3:15 PM PDT Case Management by PHUONG Sandhu at 01/17/15 1515 Author: PHUONG Sandhu Service: (none) Author Type: Allied Health Teacher Filed: 01/17/15 1518 Date of Service: 01/17/155 Status: Signed Recycling Program Manager: PHUONG Sandhu (Allied Health Teacher) 01/17/15 1500 Discharge Planning Evaluation Admitting Diagnosis Near syncope, elevated tropinin, non-stemi, CKD Anticipated Disposition Facility Type detention facility Medicare Important Message (MEREDITH) Given Group Home [facility] Other (comment) ([facility]) IMAGING ACCOUNT MANAGER met with Pt for discharge planning, on board with going to [facility] when medically ready. IMAGING ACCOUNT MANAGER p/c to [facility] - will accept Pt when medically ready. [facility] (73 miles) [address] [place] [address], [place] Speech Therapist Early Intervention: Will DCP: [facility] Transportation: [facility] Facility Van - Speech Therapist Early Intervention: Will [phone] Medicare important message signed and copy in chart LUIS FOUNTAIN, Cad Designer [phone] cell Rosangela Zavala MD - 01/17/2015 1:11 PM PDT Progress Notes by Rosangela Steinberg MD at 01/17/15 1311 Author: Rosangela Steinberg MD Service: Infectious Disease Author Type: Physician Filed: 01/17/15 2571 Date of Service: 01/17/15 1311 Status: Signed Recycling Program Manager: Rosangela Steinberg MD (Physician) [facility] Service: Infectious Disease Progress Note Hospital Day: [...] and diarrhea. Had initially presented to [facility] in [place] with similar complaints. Was foun d to have an elevated troponin. She was mainly admitted as a non-STEMI. Found to have a leuk ocytosis. Since patient is immunocompromised, she was started empirically on IV ceftriaxone. Chest x-ray showed no infiltrate. Patient denies any recent fevers or chills. She went to [facility] mainly becau se of syncope. [...] extraluminal fluid collection abdomen pelvis without contrast [[id number]] Impression 1. Hypoinflated chest, but no evident infiltrate chest 1 view [[id number]] Impression 1. Indication for study and thus [...] 01/16/152137 Date of Service: 01/16/152127 Status: Signed Recycling Program Manager: Juju Riggins MD (Physician) [facility] Service: Cardiology Progress Note Hospital Day: LOS: [...] Author: PHUONG Sandhu Service: (none) Author Type: Allied Health Teacher Filed: 01/16/156 Date of Service: 01/16/151642 Status: Signed Recycling Program Manager: PHUONG Sandhu (Allied Health Teacher) 01/16/15 1600 Discharge Planning Evaluation Admitting Diagnosis Near syncope, elevated tropinin, non-stemi, CKD Anticipated Disposition Facility Type detention facility Group Home Facility Other (comment) ([facility]) PHUONG received p/c from Will, admissions at [facility], states they are willi ng to accept Pt to their Group Home Facility, states their house physician will not pre scribe Methadone. Will states she will start authorization process with [employer] who is Managing the Medicare benefits. Will states the first 20 days are covered at 100% then day 21 will be $100.00 a day. DCP: [facility] or Home LUIS FOUNTAIN,Cad Designer [phone] cell Jose Maria Grimes MD - 01/16/2015 11:29 AM PDTFormatting of this note might be different from th e original. Progress Notes by Jose Maria Espinal MD at 01/16/15 1129 Author: Jose Maria Espinal MD Service: Hospitalist Author Type: Physician Filed: 01/17/15 1149 Date of Service: 01/16/15 1129 Status: Signed Recycling Program Manager: Jose Maria Espinal MD (Physician) Related Notes: Original Note by Jose Maria Espinal MD (Physician) filed at 01/16/15 1137 [facility] Service: Hospitalist Progress Note Pt: Cole Ernst AGE/SEX: 69 y.o. female : 1945 ROOM: [address] [place] [address] History of Present Illness: " The patient [...] called EMS. Patient was taken to [facility] in [place]. Susie ent was noted to have a [...] Patient had borderline blood pressure. While at [facility] with systolic in the low 90s. [...] CT done several days ago while in [place]. She also stat es that her vomiting and diarrhea have significantly improved. She denies any fevers, hemat emesis, melena, bright red blood per rectum, hematuria, dysuria, she denies any leg pain or swelling. No palpitations. She states she does have a history of "kidney disease" and was told that it was secondary to cyclosporine. However, she is not seen kidney specialist [facility] e her liver transplant.".....per admitting MD/Dr. Hartman. [...] collected as n oted. I urged the waitstaff to introduce a hat so that sample [...] contrast. Prior study for comparison: None FINDINGS: Testing Machine Operator 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 deg enerative changes of [...] LA/Ao: 1.57 D-E Excursion: 2.11 cm E-F [place]: 0.09 m/s EPSS: 0.48 cm HR: 77.41 [...] TV A Billy: 0.66 m/s TV Dec [place]: 4.36 m/s2 TV Dec Time: 184.41 ms TV E Billy: 0.80 m/s TV E/A Rat io: 1.21 Lathe Scalper Operator: NEDRA Authenticated by: Gil Coronel MD Report [...] pressure has been showing increasing trend since nc toprolol has been held on admission due [...] Date of Service: 01/16/15 1102 Status: Signed Recycling Program Manager: Natalio Benito PT (Physical Therapist) 01/16/15 1102 PT Last Visit PT Received On 01/16/15 Reason for Treatment Deconditioning;Other (comment) (NSTEMI; Syncope) Requires PT Follow Up Awaiting tx order Follow up PT Only? No PT Eval/Reassessment Date 01/16/15 Assistance Required 1 person Industrial Relations Director Needed No Home Environment Type of Home Apartment ground level Home Exterior Layout Entry steps none Home Interior Layout Lives on main level with bedroom/bathroom Bathroom Shower/Tub Tub/shower unit Bathroom Toilet Standard Bathroom Equipment Shower stool;Grab bars in shower/bath;Grab bars outside of shower/bath Bathroom Accessibility Other (Comment) (Small bathroom) Home Equipment Walker 4 wheeled;Cane single point Prior Function Level of Trout Modified independent with functional mobility;Modified independent wi [...] (sitting in recliner w/ call light and COMPUTER TECHNICAL SPECIALIST present) Restraints Initially in Place No Precautions [...] Eval/Reassessment Date 01/16/15 Assistance Required 1 person Industrial Relations Director Needed No Precautions Other Precautions Fall Risk [...] support. Patient in the recli ner w/ COMPUTER TECHNICAL SPECIALIST present at end of session, no new [...] (sitting in recliner w/ call light and COMPUTER TECHNICAL SPECIALIST present) Restraints Initially in Place No Plan [...] Date of Service: 01/16/15 1045 Status: Signed Recycling Program Manager: Nupur Tadeo MD (Physician) [facility] Service: Infectious Disease Progress Note Hospital Day: [...] vomiting and diarrhea. Had initially presented to [facility] in [place] with similar complaints. Was found to have an elevated troponin . She was mainly admitted as a non-STEMI. Found to have a leukocytosis. Since patient is imm unocompromised, she was started empirically on IV ceftriaxone. Chest x-ray showed no infiltrate. Patient denies any recent fevers or chills. She went to [facility] mainly becau se of syncope. [...] Author: PHUONG Sandhu Service: (none) Author Type: Allied Health Teacher Filed: 01/16/15 1042 Date of Service: 01/16/15 1030 Status: Signed Recycling Program Manager: PHUONG Sandhu (Allied Health Teacher) 01/16/15 1000 Discharge Planning Evaluation Admitting Diagnosis Near syncope, elevated tropinin, non-stemi, CKD Anticipated Disposition Facility Type detention facility IMAGING ACCOUNT MANAGER met with Pt and discussed discharge planning, states she has concerns returning home at this time, as Pt resides alone. IMAGING ACCOUNT MANAGER discussed rehab options, SNF vs Home Health vs Outpatient PT. Pt states her sister (Annie Tipton [phone] cell) assists with IADLs as Pt does not polo ojeda. Pt states she resides alone and has been doing ADLs on her own. Pt states she uses a 4WW with seat at home, then uses a cane when out of the home, stated, "I am a little vain" abou t using the 4WW in public. Pt is interested in [facility] [place], due to close proximity to her home. IMAGING ACCOUNT MANAGER faxe d SNF referral. Pt is [...] need SNF Anticipated DCP: Pending placement at [facility] [place] LUIS FOUNTAIN, Cad Designer [phone] cell Luisito Mejía - 01/16/2015 9:12 AM PDTFormatting of this note might be different from the or iginal. Progress Notes by Luisito Thomas MD at 01/16/15911 Author: Luisito Thomas MD Service: Nephrology Author Type: Physician Filed: 01/20/15 1907 Date of Service: 01/16/15911 Status: Signed Recycling Program Manager: Luisito Thomas MD (Physician) [facility] Service: NEPHROLOGY PROGRESS Note Cole Ernst 69 y.o. [id number] female [facility] Day: LOS: 2 days The patient is a 69 y.o. 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 High CIWA this shift =4. Patient c/o generalized pain, treated with PRN [place] per orders. Patient observed to be sle eping, following PRN medication and repositioning. Patient continues to be NSR-ST on tele. Vitals stable. Will continue to monitor patient. ose Maria Black MD - 01/15/2015 3:19 PM PDTFormatting of this note might be different from armando tellez original. Progress Notes by Jose Maria Espinal MD at 01/15/15 8783 Author: Jose Maria Espinal MD Service: Hospitalist Author Type: Physician Filed: 01/16/15 0925 Date of Service: 01/15/151518 Status: Signed Recycling Program Manager: Jose Maria Espinal MD (Physician) Related Notes: Original Note by Jose Maria Espinal MD (Physician) filed at 01/15/151939 [facility] Service: Hospitalist Progress Note Pt: Cole Ernst [...] called EMS. Patient was taken to [facility] in [place]. Susie ent was noted to have a [...] Patient had borderline blood pressure. While at [facility] with systolic in the low 90s. [...] CT done several days ago while in [place]. She also stat es that her vomiting and diarrhea have significantly improved. She denies any fevers, hemat emesis, melena, bright red blood per rectum, hematuria, dysuria, she denies any leg pain or swelling. No palpitations. She states she does have a history of "kidney disease" and was told that it was secondary to cyclosporine. However, she is not seen kidney specialist [facility] e her liver transplant.".....per admitting MD/Dr. Hartman. [...] contrast. Prior study for comparison: None FINDINGS: Testing Machine Operator 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 deg enerative changes of [...] LA/Ao: 1.57 D-E Excursion: 2.11 cm E-F [place]: 0.09 m/s EPSS: 0.48 cm HR: 77.41 [...] TV A Billy: 0.66 m/s TV Dec [place]: 4.36 m/s2 TV Dec Time: 184.41 ms TV E Billy: 0.80 m/s TV E/A Rat io: 1.21 Lathe Scalper Operator: NEDRA Authenticated by: Gil Coronel MD Report [...] Elevated troponins, question underlying non ST elevation SD. Continue current medical th erapy. I appreciate [...] (none) Author Type: Registered Dietitian Filed: 01/15/15 143 Date of Service: 01/15/151429 Status: Signed Recycling Program Manager: Ronda Michaels RD (Registered Dietitian) 01/15/15 4689 Subjective Timepoint Admit Pt c/o In to [...] Estimated Energy Needs Total Energy Estimated Needs 1086-5871 kcal Method for Estimating Needs 25-30 kcal/kg [...] Date of Service: 01/15/15 1043 Status: Signed Recycling Program Manager: Luisito Thomas MD (Physician) [facility] Service: NEPHROLOGY PROGRESS Note Cole Ernst 69 y.o. [id number] female [facility] Hospital Day: LOS: 1 day The patient is a 69 y.o. 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 See ED Record for Physician Inter pretation. 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 [...] 01/14/152226 Date of Service: 01/14/152226 Status: Signed Recycling Program Manager: Jazz Rahman RPH (Pharmacist) Clinical Pharmacy Note - Renal Dose Adjustment Cole Ernst 69 y.o. female Ht Readings from Last 1 Encounters: 01/14/15 1.6 m (5' 3") Wt Readings from Last 1 Encounters: 01/14/15 89.6 kg (197 lb 8.5 oz) CREATININE Date Value Ref Range Status 01/14/2015 2.4* 0.50 - 1.00 mg/dL Final Comment: Testing performed at [facility];[address] [place] [place] [address];[place] [address] CREATININE: 2.4 mg/dL ABNORMAL (01/14/15 1548) Estimated [...] Case Management by PHUONG Crump LICSW at 01/14/151 Author: PHUONG Crump LICSW Service: (none) Author Type: Cad Designer Filed: 01/14/151734 Date of Service: 01/14/151733 Status: Signed Recycling Program Manager: PHUONG Crump LICSW (Cad Designer) 01/14/151727 Discharge Planning Evaluation Admitting Diagnosis Near syncope, elevated tropinin, non-stemi, CKD Readmission No Living Arrangements Alone Support Systems Family members;Friends/neighbors Type of Residence Private residence House type Apartment Bathrooms on 1st Floor 1-Full Independent with ADL's Yes Independent with Mobility No-comment Home Care Services No Mental Status Oriented Power of Rail Bonder No;Other (comment) Resources Transportation issues No Prescription Plan Yes Name of Pharmacy [facility] in [place], [place] Previous home health equipment Yes Anticipated Disposition Facility Type Home Met with patient and discussed discharge planning, Pt is a 69 y.o., female who reports skyleri mack alone. Patient reports her sister, Annie Tipton, will transport her home a t discharge. Patient's PCP is: KI DE JESUS (General) Patient's insurance:b [employer] Plan & Medicare Coverage concerns: Medication coverage/concerns: Doreen Bedside Delivery: [facility] resources utilized / needed: TBD [...] preparation was | | | performed by [facility], [facility], [facility] | | | [place] [address] (Yard Cleaner: Martin | | Tariq Galvan M.D.; NINA#: [id number]). Diagnostician: Martin Galvan | | | Pathologist [...] EXTERNAL | | | | performed at [facility], [address] | | LAB | | | | [address], | | | | | | [place] [address] | | | | + + + [...] EXTERNAL | | | | performed at [facility], [address] | | LAB | | | | [address], | | | | | | [place] [address] | | | | + + + [...] | | | | | [place] [address] | | | | + + + + + + | K | 3.4 (L)Comment: Testing | 3.5 - 4.9 | EXTERNAL | | | | performed at [facility], [address] | mmol/L | LAB | | | | [address], | | | | | | [place] [address] | | | | + + + + + + | Cl | 101Comment: Testing | 99 - 109 mmol/L | EXTERNAL | | | | performed at [facility], [address] | | LAB | | | | [address], | | | | | | [place] [address] | | | | + + + + + + | CO2 | 28Comment: Testing | 23 - 32 mmol/L | EXTERNAL | | | | performed at [facility], [address] | | LAB | | | | [address], | | | | | | [place] [address] | | | | + + + + + + | Anion Gap | 10Comment: Testing | 5 - 20 mmol/L | EXTERNAL | | | | performed at [facility], [address] | | LAB | | | | [address], | | | | | | [place] [address] | | | | + + + + + + | Glucose, | 107 (H)Comment: Testing | 65 - 99 mg/dL | EXTERNAL | | | Fasting | performed at [facility], [address] | | LAB | | | | [address], | | | | | | [place] [address] | | | | + + + + + + | BUN | 8Comment: Testing | 8 - 25 mg/dL | EXTERNAL | | | | performed at [facility], [address] | | LAB | | | | [address], | | | | | | [place] [address] | | | | + + + + + + | Creatinine | 0.96Comment: Testing | 0.50 - 1.00 | EXTERNAL | | | | performed at [facility], [address] | mg/dL | LAB | | | | [address], | | | | | | [place] [address] | | | | + + + + + + | BUN/Creatin | 8Comment: Testing | | EXTERNAL | | | ine Ratio | performed at [facility], [address] | | LAB | | | | [address], | | | | | | [place] [address] | | | | + + + + + + | Calcium | 8.6Comment: Testing | 8.5 - 10.5 | EXTERNAL | | | | performed at [facility], [address] | mg/dL | LAB | | | | [address], | | | | | | [place] [address] | | | | + + + [...] | | | | | | at [facility], [address] | | | | | | [address], | | | | | | [place] [address] | | | | + + + [...] + + + | COLE ERNST 1945 DC MYOCARDIAL PERFUSION SPECT - STRESS | | [...] - 01/05/2019 4:32 AM PDT COLE Corcoran [id number] MYOCARDIAL | | PERFUSION SPECT - STRESS [...] EXTERNAL | | | | performed at [facility], [address] | K/uL | LAB | | | | [address], | | | | | | [place] [address] | | | | + + + + + + | RED CELL | 3.41 (L)Comment: Testing | 3.70 - 5.10 | EXTERNAL | | | COUNT | performed at [facility], [address] | M/uL | LAB | | | | [address], | | | | | | [place] [address] | | | | + + + + + + | Hgb | 11.9Comment: Testing | 11.3 - 15.5 | EXTERNAL | | | | performed at [facility], [address] | g/dL | LAB | | | | [address], | | | | | | [place] [address] | | | | + + + + + + | Hematocrit, | 35.7Comment: Testing | 34.0 - 46.0 % | EXTERNAL | | | POC | performed at [facility], [address] | | LAB | | | | [address], | | | | | | [place] [address] | | | | + + + + + + | MCV | 104.6 (H)Comment: | 80.0 - 100.0 fl | EXTERNAL | | | | Testing performed at | | LAB | | | | [facility], [address] [facility] | | | | | | [place] | | | | | | [address] | | | | + + + + + + | MCH | 34.9 (H)Comment: Testing | 27.0 - 34.0 pg | EXTERNAL | | | | performed at [facility], [address] | | LAB | | | | [address], | | | | | | [place] [address] | | | | + + + + + + | MCHC | 33.3Comment: Testing | 32.0 - 35.5 | EXTERNAL | | | | performed at [facility], [address] | g/dL | LAB | | | | [address], | | | | | | [place] [address] | | | | + + + + + + | RDW-CV | 50.8Comment: Testing | 37 - 53 fl | EXTERNAL | | | | performed at [facility], [address] | | LAB | | | | [address], | | | | | | [place] [address] | | | | + + + [...] | | | | | [place] [address] | | | | + + + + + + | MPV | 12.6Comment: Testing | fl | EXTERNAL | | | | performed at [facility], [address] | | LAB | | | | [address], | | | | | | [place] [address] | | | | + + + + + + | Differentia | AUTOMATEDComment: | | EXTERNAL | | | l Type | Testing performed at | | LAB | | | | [facility], [address] | | | | | | [place] | | | | | | [address] | | | | + + + + + + | % Segmented | 40.31Comment: Testing | % | EXTERNAL | | | | performed at [facility], [address] | | LAB | | | Neutrophils | [address], | | | | | | [place] [address] | | | | + + + + + + | % | 39.78Comment: Testing | % | EXTERNAL | | | Lymphocytes | performed at [facility], [address] | | LAB | | | | [address], | | | | | | [place] [address] | | | | + + + + + + | % Monocytes | 12.51Comment: Testing | % | EXTERNAL | | | | performed at [facility], [address] | | LAB | | | | [address], | | | | | | [place] [address] | | | | + + + + + + | % | 6.45Comment: Testing | % | EXTERNAL | | | Eosinophils | performed at [facility], [address] | | LAB | | | | [address], | | | | | | [place] [address] | | | | + + + + + + | % Basophils | 0.95Comment: Testing | % | EXTERNAL | | | | performed at [facility], [address] | | LAB | | | | [address], | | | | | | [place] [address] | | | | + + + + + + | Absolute | 3.26Comment: Testing | 1.90 - 7.40 | EXTERNAL | | | Segmented | performed at [facility], [address] | K/uL | LAB | | | Neutrophils | [address], | | | | | | [place] [address] | | | | + + + + + + | Absolute | 3.21Comment: Testing | 1.00 - 3.90 | EXTERNAL | | | Lymphocytes | performed at [facility], [address] | K/uL | LAB | | | | [address], | | | | | | [place] [address] | | | | + + + + + + | Absolute | 1.01 (H)Comment: Testing | 0.00 - 0.80 | EXTERNAL | | | Monocytes | performed at [facility], [address] | K/uL | LAB | | | | [address], | | | | | | [place] [address] | | | | + + + + + + | Absolute | 0.52 (H)Comment: Testing | 0.00 - 0.50 | EXTERNAL | | | Eosinophils | performed at [facility], [address] | K/uL | LAB | | | | [address], | | | | | | [place] [address] | | | | + + + + + + | Absolute | 0.08Comment: Testing | 0.00 - 0.10 | EXTERNAL | | | Basophils | performed at [facility], [address] | K/uL | LAB | | | | [address], | | | | | | [place] [address] | | | | + + + + + + | RBC | RBC AND PLT MORPHOLOGY | | EXTERNAL | | | Morphology | APPEAR NORMALComment: | | LAB | | | | Testing performed at | | | | | | [facility], [address] [facility] | | | | | | [place] | | | | | | [address] | | | | + + + [...] EXTERNAL | | | | performed at [facility], [address] | | LAB | | | | [address], | | | | | | [place] [address] | | | | + + + [...] | | | | | [place] [address] | | | | + + + [...] | | | | | [place] [address] | | | | + + + + + + | K | 3.8Comment: Testing | 3.5 - 4.9 | EXTERNAL | | | | performed at [facility], [address] | mmol/L | LAB | | | | [address], | | | | | | [place] [address] | | | | + + + + + + | Cl | 101Comment: Testing | 99 - 109 mmol/L | EXTERNAL | | | | performed at [facility], [address] | | LAB | | | | [address], | | | | | | [place] [address] | | | | + + + + + + | CO2 | 27Comment: Testing | 23 - 32 mmol/L | EXTERNAL | | | | performed at [facility], [address] | | LAB | | | [address], | | | | | | [place] [address] | | | | + + + + + + | Anion Gap | 12Comment: Testing | 5 - 20 mmol/L | EXTERNAL | | | | performed at [facility], [address] | | LAB | | | | [address], | | | | | | [place] [address] | | | | + + + + + + | Glucose, | 118 (H)Comment: Testing | 65 - 99 mg/dL | EXTERNAL | | | Fasting | performed at [facility], [address] | | LAB | | | | [address], | | | | | | [place] [address] | | | | + + + + + + | BUN | 7 (L)Comment: Testing | 8 - 25 mg/dL | EXTERNAL | | | | performed at [facility], [address] | | LAB | | | | [address], | | | | | | [place] [address] | | | | + + + + + + | Creatinine | 0.79Comment: Testing | 0.50 - 1.00 | EXTERNAL | | | | performed at [facility], [address] | mg/dL | LAB | | | | [address], | | | | | | [place] [address] | | | | + + + + + + | BUN/Creatin | 9Comment: Testing | | EXTERNAL | | | ine Ratio | performed at [facility], [address] | | LAB | | | | [address], | | | | | | [place] [address] | | | | + + + + + + | Calcium | 7.5 (L)Comment: Testing | 8.5 - 10.5 | EXTERNAL | | | | performed at [facility], [address] | mg/dL | LAB | | | | [address], | | | | | | [place] [address] | | | | + + + + + + | Protein, | 7.2Comment: Testing | 6.3 - 8.2 g/dL | EXTERNAL | | | Total | performed at [facility], [address] | | LAB | | | | [address], | | | | | | [place] [address] | | | | + + + + + + | Albumin | 3.1 (L)Comment: Testing | 3.3 - 4.8 g/dL | EXTERNAL | | | | performed at [facility], [address] | | LAB | | | | [address], | | | | | | [place] [address] | | | | + + + + + + | Globulin | 4.1Comment: Testing | 1.3 - 4.9 g/dL | EXTERNAL | | | | performed at [facility], [address] | | LAB | | | | [address], | | | | | | [place] [address] | | | | + + + + + + | A/G Ratio | 0.8 (L)Comment: Testing | 1.0 - 2.4 | EXTERNAL | | | | performed at [facility], [address] | | LAB | | | | [address], | | | | | | [place] [address] | | | | + + + + + + | Bilirubin | 0.5Comment: Testing | 0.1 - 1.5 mg/dL | EXTERNAL | | | Total | performed at [facility], [address] | | LAB | | | | [address], | | | | | | [place] [address] | | | | + + + + + + | ALP, | 76Comment: Testing | 35 - 115 U/L | EXTERNAL | | | External | performed at [facility], [address] | | LAB | | | | [address], | | | | | | [place] [address] | | | | + + + + + + | AST | 43Comment: Testing | 10 - 45 U/L | EXTERNAL | | | | performed at [facility], [address] | | LAB | | | | [address], | | | | | | [place] [address] | | | | + + + + + + | ALT | 25Comment: Testing | 10 - 65 U/L | EXTERNAL | | | | performed at [facility], [address] | | LAB | | | | [address], | | | | | | [place] [address] | | | | + + + [...] | | | | | [place] [address] | | | | + + + [...] EXTERNAL | | | | performed at [facility];[address] | mmol/L | LAB | | | | [address];[place] | | | | | | [address] | | | | + + + [...] EXTERNAL | | | | performed at [facility] | | LAB | | | | [address] [facility];[place], [place] | | | | | | [address] | | | | + + + [...] EXTERNAL | | | | performed at [facility];[address] | | LAB | | | | [address];[place] | | | | | | [address] | | | | + + + [...] EXTERNAL | | | | performed at [facility];[address] | mmol/L | LAB | | | | [address];[place], [place] | | | | | | [address] | | | | + + + [...] EXTERNAL | | | | performed at [facility];[address] | | LAB | | | | [address];[place] | | | | | | [address] | | | | + + + [...] EXTERNAL | | | | performed at [facility];[address] | | LAB | | | | [address] [facility];[place], [place] | | | | | | [address] | | | | + + + [...] | | | | | [place] [address] | | | | + + + + + + | RED CELL | 3.40 (L)Comment: Testing | 3.70 - 5.10 | EXTERNAL | | | COUNT | performed at [facility], [address] | M/uL | LAB | | | | [address], | | | | | | [place] [address] | | | | + + + + + + | Hgb | 12.0Comment: Testing | 11.3 - 15.5 | EXTERNAL | | | | performed at [facility], [address] | g/dL | LAB | | | | [address], | | | | | | [place] [address] | | | | + + + + + + | Hematocrit, | 35.8Comment: Testing | 34.0 - 46.0 % | EXTERNAL | | | POC | performed at [facility], [address] | | LAB | | | | [address], | | | | | | [place] [address] | | | | + + + + + + | MCV | 105.3 (H)Comment: | 80.0 - 100.0 fl | EXTERNAL | | | | Testing performed at | | LAB | | | | [facility], [address] [facility] | | | | | | [place] | | | | | | [address] | | | | + + + + + + | MCH | 35.3 (H)Comment: Testing | 27.0 - 34.0 pg | EXTERNAL | | | | performed at [facility], [address] | | LAB | | | | [address], | | | | | | [place] [address] | | | | + + + + + + | MCHC | 33.6Comment: Testing | 32.0 - 35.5 | EXTERNAL | | | | performed at [facility], [address] | g/dL | LAB | | | | [address], | | | | | | [place] [address] | | | | + + + + + + | RDW-CV | 50.8Comment: Testing | 37 - 53 fl | EXTERNAL | | | | performed at [facility], [address] | | LAB | | | | [address], | | | | | | [place] [address] | | | | + + + + + + | Platelet | 149 (L)Comment: Testing | 150 - 400 K/uL | EXTERNAL | | | Count | performed at [facility], [address] | | LAB | | | Plasma | [address], | | | | | | [place] [address] | | | | + + + + + + | MPV | 13.0Comment: Testing | fl | EXTERNAL | | | | performed at [facility], [address] | | LAB | | | | [address], | | | | | | [place] [address] | | | | + + + + + + | Differentia | AUTOMATEDComment: | | EXTERNAL | | | l Type | Testing performed at | | LAB | | | | [facility], [address] | | | | | | [place] | | | | | | [address] | | | | + + + + + + | % Segmented | 52.08Comment: Testing | % | EXTERNAL | | | | performed at [facility], [address] | | LAB | | | Neutrophils | [address], | | | | | | [place] [address] | | | | + + + + + + | % | 32.37Comment: Testing | % | EXTERNAL | | | Lymphocytes | performed at [facility], [address] | | LAB | | | | [address], | | | | | | [place] [address] | | | | + + + + + + | % Monocytes | 10.07Comment: Testing | % | EXTERNAL | | | | performed at [facility], [address] | | LAB | | | | [address], | | | | | | [place] [address] | | | | + + + + + + | % | 4.41Comment: Testing | % | EXTERNAL | | | Eosinophils | performed at [facility], [address] | | LAB | | | | [address], | | | | | | [place] [address] | | | | + + + + + + | % Basophils | 1.07Comment: Testing | % | EXTERNAL | | | | performed at [facility], [address] | | LAB | | | | [address], | | | | | | [place] [address] | | | | + + + + + + | Absolute | 5.59Comment: Testing | 1.90 - 7.40 | EXTERNAL | | | Segmented | performed at [facility], [address] | K/uL | LAB | | | Neutrophils | [address], | | | | | | [place] [address] | | | | + + + + + + | Absolute | 3.48Comment: Testing | 1.00 - 3.90 | EXTERNAL | | | Lymphocytes | performed at [facility], [address] | K/uL | LAB | | | | [address], | | | | | | [place] [address] | | | | + + + + + + | Absolute | 1.08 (H)Comment: Testing | 0.00 - 0.80 | EXTERNAL | | | Monocytes | performed at [facility], [address] | [address] | LAB | | | | [address], | | | | | | [place] [address] | | | | + + + + + + | Absolute | 0.47Comment: Testing | 0.00 - 0.50 | EXTERNAL | | | Eosinophils | performed at [facility], [address] | K/uL | LAB | | | | [address], | | | | | | [place] [address] | | | | + + + + + + | Absolute | 0.12 (H)Comment: Testing | 0.00 - 0.10 | EXTERNAL | | | Basophils | performed at [facility], [address] | [address]L | LAB | | | | [address], | | | | | | [place] [address] | | | | + + + + + + | RBC | NORMAL RBC MORPHComment: | | EXTERNAL | | | Morphology | Testing performed at | | LAB | | | | [facility], [address] [facility] | | | | | | [place] | | | | | | [address] | | | | + + + + + + | Differentia | 1+ GIANT PLTComment: | | EXTERNAL | | | l Comments | Testing performed at | | LAB | | | | [facility], [address] | | | | | | [place] | | | | | | [address] | | | | + + + [...] | | | | | [place] [address] | | | | + + + + + + | K | 3.2 (L)Comment: Testing | 3.5 - 4.9 | EXTERNAL | | | | performed at [facility], [address] | mmol/L | LAB | | | | [address], | | | | | | [place] [address] | | | | + + + + + + | Cl | 100Comment: Testing | 99 - 109 mmol/L | EXTERNAL | | | | performed at [facility], [address] | | LAB | | | | [address], | | | | | | [place] [address] | | | | + + + + + + | CO2 | 28Comment: Testing | 23 - 32 mmol/L | EXTERNAL | | | | performed at [facility], [address] | | LAB | | | | [address], | | | | | | [place] [address] | | | | + + + + + + | Anion Gap | 13Comment: Testing | 5 - 20 mmol/L | EXTERNAL | | | | performed at [facility], [address] | | LAB | | | | [address], | | | | | | [place] [address] | | | | + + + + + + | Glucose, | 114 (H)Comment: Testing | 65 - 99 mg/dL | EXTERNAL | | | Fasting | performed at [facility], [address] | | LAB | | | | [address], | | | | | | [place] [address] | | | | + + + + + + | BUN | 8Comment: Testing | 8 - 25 mg/dL | EXTERNAL | | | | performed at [facility], [address] | | LAB | | | | [address], | | | | | | [place] [address] | | | | + + + + + + | Creatinine | 0.94Comment: Testing | 0.50 - 1.00 | EXTERNAL | | | | performed at [facility], [address] | mg/dL | LAB | | | | [address], | | | | | | [place] [address] | | | | + + + + + + | BUN/Creatin | 9Comment: Testing | | EXTERNAL | | | ine Ratio | performed at [facility], [address] | | LAB | | | | [address], | | | | | | [place] [address] | | | | + + + + + + | Calcium | 7.8 (L)Comment: Testing | 8.5 - 10.5 | EXTERNAL | | | | performed at [facility], [address] | mg/dL | LAB | | | | [address], | | | | | | [place] [address] | | | | + + + + + + | Protein, | 7.8Comment: Testing | 6.3 - 8.2 g/dL | EXTERNAL | | | Total | performed at [facility], [address] | | LAB | | | | [address], | | | | | | [place] [address] | | | | + + + + + + | Albumin | 3.3Comment: Testing | 3.3 - 4.8 g/dL | EXTERNAL | | | | performed at [facility], [address] | | LAB | | | [address], | | | | | | [place] [address] | | | | + + + + + + | Globulin | 4.5Comment: Testing | 1.3 - 4.9 g/dL | EXTERNAL | | | | performed at [facility], [address] | | LAB | | | [address], | | | | | | [place] [address] | | | | + + + + + + | A/G Ratio | 0.7 (L)Comment: Testing | 1.0 - 2.4 | EXTERNAL | | | | performed at [facility], [address] | | LAB | | | | [address], | | | | | | [place] [address] | | | | + + + + + + | Bilirubin | 0.4Comment: Testing | 0.1 - 1.5 mg/dL | EXTERNAL | | | Total | performed at [facility], [address] | | LAB | | | | [address], | | | | | | [place] [address] | | | | + + + + + + | ALP, | 83Comment: Testing | 35 - 115 U/L | EXTERNAL | | | External | performed at [facility], [address] | | LAB | | | | [address], | | | | | | [place] [address] | | | | + + + + + + | AST | 34Comment: Testing | 10 - 45 U/L | EXTERNAL | | | | performed at [facility], [address] | | LAB | | | | [address], | | | | | | [place] [address] | | | | + + + + + + | ALT | 24Comment: Testing | 10 - 65 U/L | EXTERNAL | | | | performed at [facility], [address] | | LAB | | | | [facility], | | | | | | [place] [address] | | | | + + + [...] W | | | | | | [facility], | | | | | | [place] [address] | | | | + + + [...] LAB | | | | performed at [facility] | | | | | | [address] [facility];[place], [place] | | | | | | [address] | | | | + + + [...] LAB | | | | performed at [facility];[address] | | | | | | [address];[place], [place] | | | | | | [address] | | | | + + + [...] EXTERNAL | | | | performed at [facility];[address] | mmol/L | LAB | | | | [address];[place], [place] | | | | | | [address] | | | | + + + [...] EXTERNAL | | | | performed at [facility];[address] | | LAB | | | | [address];[place], [place] | | | | | | [address] | | | | + + + [...] TESTING. | | | Testing performed at [facility], [address] | | | [place] [address] | | + + + + +---------+ [...] | Testing performed at | | | [facility], [address] [place] [address] | | + + + + +---------+ [...] NONE SEEN to 1+ Testing performed at [facility], [address] [facility] | | | [place] [address] | | + + + + +---------+ [...] antigen detected by ICA Testing performed at [facility], [address] | | | [place] [address] | | + + + + +---------+ [...] at | | | | | | [facility], [address] | | | | | | [place] | | | | | | [address] | | | | + + + [...] [place] | | | | | | [place] [address] | | | | + + + [...] EXTERNAL | | | | performed at [facility];[address] | | LAB | | | | [facility];[place], [place] | | | | | | [address] | | | | + + + + + + | CMV DNA | NOT DETECTEDComment: | | EXTERNAL | | | QUANTITATIV | Unit: IU/MLTesting | | LAB | | | E INTERP | performed at [facility], [address] | | | | | | [place] | | | | | | [place] [address] | | | | + + + + + + | CMV DNA, | NOT DETECTEDComment: | | EXTERNAL | | | Qual PCR | Unit: COPIES/MLTesting | | LAB | | | | performed at [facility], [address] | | | | | | [place] | | | | | | [place] [address] | | | | + + + [...] [place] | | | | | | [address] | | | | + + + [...] EXTERNAL | | | | performed at [facility], [address] | K/uL | LAB | | | | [place], | | | | | | [place] [address] | | | | + + + + + + | RED CELL | 3.28 (L)Comment: Testing | 3.70 - 5.10 | EXTERNAL | | | COUNT | performed at [facility], [address] | M/uL | LAB | | | | [address] [place], | | | | | | [place] [address] | | | | + + + + + + | Hgb | 11.6Comment: Testing | 11.3 - 15.5 | EXTERNAL | | | | performed at [facility], [address] | g/dL | LAB | | | | [address], | | | | | | [place] [address] | | | | + + + + + + | Hematocrit, | 34.5Comment: Testing | 34.0 - 46.0 % | EXTERNAL | | | POC | performed at [facility], [address] | | LAB | | | | [place], | | | | | | [place] [address] | | | | + + + + + + | MCV | 105.1 (H)Comment: | 80.0 - 100.0 fl | EXTERNAL | | | | Testing performed at | | LAB | | | | [facility], [address] | | | | | | [place] | | | | | | [address] | | | | + + + + + + | MCH | 35.3 (H)Comment: Testing | 27.0 - 34.0 pg | EXTERNAL | | | | performed at [facility], [address] | | LAB | | | | [address], | | | | | | [place] [address] | | | | + + + + + + | MCHC | 33.5Comment: Testing | 32.0 - 35.5 | EXTERNAL | | | | performed at [facility], [address] | g/dL | LAB | | | | [address], | | | | | | [place] [address] | | | | + + + + + + | RDW-CV | 50.8Comment: Testing | 37 - 53 fl | EXTERNAL | | | | performed at [facility], [address] | | LAB | | | | [address], | | | | | | [place] [address] | | | | + + + + + + | Platelet | 144 (L)Comment: Testing | 150 - 400 K/uL | EXTERNAL | | | Count | performed at [facility], [address] | | LAB | | | Plasma | [address], | | | | | | [place] [address] | | | | + + + + + + | MPV | 13.0Comment: Testing | fl | EXTERNAL | | | | performed at [facility], [address] | | LAB | | | | [place], | | | | | | [place] [address] | | | | + + + + + + | Differentia | AUTOMATEDComment: | | EXTERNAL | | | l Type | Testing performed at | | LAB | | | | [facility], [address] | | | | | | [place] | | | | | | [address] | | | | + + + + + + | % Segmented | 37.99Comment: Testing | % | EXTERNAL | | | | performed at [facility], [address] | | LAB | | | Neutrophils | [address], | | | | | | [place] [address] | | | | + + + + + + | % | 43.49Comment: Testing | % | EXTERNAL | | | Lymphocytes | performed at [facility], [address] | | LAB | | | | [address], | | | | | | [place] [address] | | | | + + + + + + | % Monocytes | 11.24Comment: Testing | % | EXTERNAL | | | | performed at [facility], [address] | | LAB | | | | [address], | | | | | | [place] [address] | | | | + + + + + + | % | 5.97Comment: Testing | % | EXTERNAL | | | Eosinophils | performed at [facility], [address] | | LAB | | | | [address], | | | | | | [place] [address] | | | | + + + + + + | % Basophils | 1.31Comment: Testing | % | EXTERNAL | | | | performed at [facility], [address] | | LAB | | | | [address], | | | | | | [place] [address] | | | | + + + + + + | Absolute | 4.01Comment: Testing | 1.90 - 7.40 | EXTERNAL | | | Segmented | performed at [facility], [address] | K/uL | LAB | | | Neutrophils | [address], | | | | | | [place] [address] | | | | + + + + + + | Absolute | 4.59 (H)Comment: Testing | 1.00 - 3.90 | EXTERNAL | | | Lymphocytes | performed at [facility], [address] | [address] | LAB | | | | [address], | | | | | | [place] [address] | | | | + + + + + + | Absolute | 1.19 (H)Comment: Testing | 0.00 - 0.80 | EXTERNAL | | | Monocytes | performed at [facility], [address] | [address] | LAB | | | | [address], | | | | | | [place] [address] | | | | + + + + + + | Absolute | 0.63 (H)Comment: Testing | 0.00 - 0.50 | EXTERNAL | | | Eosinophils | performed at [facility], [address] | [address]/u[address] | LAB | | | | [address], | | | | | | [place] [address] | | | | + + + + + + | Absolute | 0.14 (H)Comment: Testing | 0.00 - 0.10 | EXTERNAL | | | Basophils | performed at [facility], [address] | [address]/u[address] | LAB | | | | [address], | | | | | | [place] [address] | | | | + + + + + + | RBC | NORMAL RBC MORPHComment: | | EXTERNAL | | | Morphology | Testing performed at | | LAB | | | | [facility], [address] | | | | | | [place] | | | | | | [address] | | | | + + + + + + | Differentia | 2+ GIANT PLTComment: | | EXTERNAL | | | l Comments | Testing performed at | | LAB | | | | [facility], [address] | | | | | | [place] | | | | | | [address] | | | | + + + [...] [place] | | | | | | [address] | | | | + + + [...] | | | (REF) | performed at [facility], [address] | | LAB | | | | [address], | | | | | | [place] [address] | | | | + + + [...] | | | | | [place] [address] | | | | + + + [...] EXTERNAL | | | | performed at [facility], [address] | | LAB | | | | [address], | | | | | | [place] [address] | | | | + + + [...] | | | | | [place] [address] | | | | + + + + + + | K | 3.0 (L)Comment: Testing | 3.5 - 4.9 | EXTERNAL | | | | performed at [facility], [address] | mmol/L | LAB | | | | [address], | | | | | | [place] [address] | | | | + + + + + + | Cl | 104Comment: Testing | 99 - 109 mmol/L | EXTERNAL | | | | performed at [facility], [address] | | LAB | | | | [address], | | | | | | [place] [address] | | | | + + + + + + | CO2 | 22 (L)Comment: Testing | 23 - 32 mmol/L | EXTERNAL | | | | performed at [facility], [address] | | LAB | | | | [address], | | | | | | [place] [address] | | | | + + + + + + | Anion Gap | 15Comment: Testing | 5 - 20 mmol/L | EXTERNAL | | | | performed at [facility], [address] | | LAB | | | | [address], | | | | | | [place] [address] | | | | + + + + + + | Glucose, | 82Comment: Testing | 65 - 99 mg/dL | EXTERNAL | | | Fasting | performed at [facility], [address] | | LAB | | | | [address], | | | | | | [place] [address] | | | | + + + + + + | BUN | 13Comment: Testing | 8 - 25 mg/dL | EXTERNAL | | | | performed at [facility], [address] | | LAB | | | | [address], | | | | | | [place] [address] | | | | + + + + + + | Creatinine | 1.01 (H)Comment: Testing | 0.50 - 1.00 | EXTERNAL | | | | performed at [facility], [address] | mg/dL | LAB | | | | [address], | | | | | | [place] [address] | | | | + + + [...] | | | | | [place] [address] | | | | + + + + + + | Protein, | 7.1Comment: Testing | 6.3 - 8.2 g/dL | EXTERNAL | | | Total | performed at [facility], [address] | | LAB | | | | [address], | | | | | | [place] [address] | | | | + + + + + + | Albumin | 3.2 (L)Comment: Testing | 3.3 - 4.8 g/dL | EXTERNAL | | | | performed at [facility], [address] | | LAB | | | | [address], | | | | | | [place] [address] | | | | + + + + + + | Globulin | 3.9Comment: Testing | 1.3 - 4.9 g/dL | EXTERNAL | | | | performed at [facility], [address] | | LAB | | | | [address], | | | | | | [place] [address] | | | | + + + + + + | A/G Ratio | 0.8 (L)Comment: Testing | 1.0 - 2.4 | EXTERNAL | | | | performed at [facility], [address] | | LAB | | | | [address], | | | | | | [place] [address] | | | | + + + + + + | Bilirubin | 0.4Comment: Testing | 0.1 - 1.5 mg/dL | EXTERNAL | | | Total | performed at [facility], [address] | | LAB | | | | [address], | | | | | | [place] [address] | | | | + + + + + + | ALP, | 76Comment: Testing | 35 - 115 U/L | EXTERNAL | | | External | performed at [facility], [address] | | LAB | | | | [address], | | | | | | [place] [address] | | | | + + + + + + | AST | 26Comment: Testing | 10 - 45 U/L | EXTERNAL | | | | performed at [facility], [address] | | LAB | | | | [address], | | | | | | [place] [address] | | | | + + + + + + | ALT | 19Comment: Testing | 10 - 65 U/L | EXTERNAL | | | | performed at [facility], [address] | | LAB | | | | [address], | | | | | | [place] [address] | | | | + + + [...] Jose, | | | | | | [place] [address] | | | | + + + [...] LAB | | | | performed at [facility], [address] | | | | | | [employer] [facility], | | | | | | [place] [address] | | | | + + + [...] | | | Urine | performed at [facility], [address] | | LAB | | | Random | [address], | | | | | | [place] [address] | | | | + + + [...] | at [facility], [address] [place] [address] | | + + + + +---------+ [...] LA/Ao: 1.57 D-E Excursion: 2.11 cm E-F [place]: 0.09 m/s | | | EPSS: 0.48 [...] TV A Billy: 0.66 m/s TV Dec [place]: 4.36 m/s2 TV Dec | | | Time: 184.41 ms TV E Billy: 0.80 m/s TV E/A Ratio: 1.21 | | | Lathe Scalper Operator: NEDRA Authenticated by: Gil Coronel MD Report [...] | Index (A-L): 40.51 ml/m2LAAs A2C: 24.56 [id number] A-L A2C: 76.32 mlLAESV MOD A2C: | | 73.52 mlLALs A2C: 6.71 cmLAAs A4C: 24.96 na0HTXPD A-L A4C: 79.86 mlLAESV MOD A4C: | | 77.20 mlLALs A4C: 6.62 cmAo Diam: 2.73 cmAV Cusp: 2.27 cmLA Diam: 4.29 | | cmLA/Ao: 1.57D-E Excursion: 2.11 cmE-F [place]: 0.09 m/sEPSS: 0.48 cmHR: 77.41 | | BPMAV maxP.05 mmHgAV meanP.21 mmHgAV Vmax: 1.73 m/Sorin Vmean: 1.25 m/Sorin | | VTI: 34.68 cmAVA Vmax: 2.07 cm2AVA (VTI): 1.85 nc8LQQA Dopp: 2.60 l/qypf8QREA | | Dopp: 5.05 l/minHR: 78.81 BPMLVOT [...] | m/sTV A Billy: 0.66 m/sTV Dec [place]: 4.36 m/s2TV Dec Time: 184.41 msTV E Billy: 0.80 | | m/sTV E/A Ratio: 1.21 Lathe Scalper Operator: GDAuthenticated by: Gil Coronel [facility] | | Date/Time: 01-15-2015 09:12:05 [...] | |D-E Excursion: 2.11 cm | |E-F [place]: 0.09 m/s | |EPSS: 0.48 cm | [...] A Billy: 0.66 m/s | |TV Dec [place]: 4.36 m/s2 | |TV Dec Time: 184.41 ms | |TV E Billy: 0.80 m/s | |TV E/A Ratio: 1.21 | | | |Lathe Scalper Operator: NEDRA | |Authenticated by: Gil Coronel MD [...] | EXTERNAL LAB | | performed at [facility];[address] [facility];[place] [address] 027 NAP1 BI | | | 027 NAP1 BI PRESUMPTIVE NEGATIVE | | | Detection of 027 NAP1 BI strains of C. difficile is presumptive and | | | for epidemiological purposes and not intended to guide or monitor | | | treatment for C. difficile infections. Testing performed at [facility];[address] | | | [facility];[place] [address] | | + + + + +---------+ [...] | | | | | [place] [address] | | | | + + + + + + | Complement | 19.4Comment: Testing | 10 - 40 mg/dL | EXTERNAL | | | Comp 4 | performed at [facility], [address] | | LAB | | | | [address], | | | | | | [place] [address] | | | | + + + [...] | | | | | | ACUTE SD Testing | | | | | | performed at [facility];[address] | | | | | | [address];[place], [place] | | | | | | [address] | | | | + + + [...] K/uL | LAB | | | | [facility];[address];[place] [address] | | | | + + + + + + | RED CELL | 3.27 (L)Comment: Testing | 3.70 - 5.10 | EXTERNAL | | | COUNT | performed at [facility];[address] | M/uL | LAB | | | | [address];[place] | | | | | | [address] | | | | + + + + + + | Hgb | 11.2 (L)Comment: Testing | 11.3 - 15.5 | EXTERNAL | | | | performed at [facility];[address] | g/dL | LAB | | | | [address];[place] | | | | | | [address] | | | | + + + + + + | Hematocrit, | 34.4Comment: Testing | 34.0 - 46.0 % | EXTERNAL | | | POC | performed at [facility];[address] | | LAB | | | | [address];[place] | | | | | | [address] | | | | + + + + + + | MCV | 105.2 (H)Comment: | 80.0 - 100.0 fl | EXTERNAL | | | | Testing performed at | | LAB | | | | [facility];[address];[place] [address] | | | | + + + + + + | MCH | 34.2 (H)Comment: Testing | 27.0 - 34.0 pg | EXTERNAL | | | | performed at [facility];[address] | | LAB | | | | [address];[place] | | | | | | [address] | | | | + + + + + + | MCHC | 32.5Comment: Testing | 32.0 - 35.5 | EXTERNAL | | | | performed at [facility];[address] | g/dL | LAB | | | | [address];[place] | | | | | | [address] | | | | + + + + + + | RDW-CV | 50.3Comment: Testing | 37 - 53 fl | EXTERNAL | | | | performed at [facility];[address] | | LAB | | | | [address];[place] | | | | | | [address] | | | | + + + + + + | Platelet | 160Comment: Testing | 150 - 400 K/uL | EXTERNAL | | | Count | performed at [facility];[address] | | LAB | | | Plasma | [address];[place] | | | | | | [address] | | | | + + + + + + | MPV | 11.1Comment: Testing | fl | EXTERNAL | | | | performed at [facility];[address] | | LAB | | | | [address];[place] | | | | | | [address] | | | | + + + + + + | Differentia | AUTOMATEDComment: | | EXTERNAL | | | l Type | Testing performed at | | LAB | | | | [facility];[address];[place] [address] | | | | + + + + + + | % Segmented | 50.65Comment: Testing | % | EXTERNAL | | | | performed at [facility];[address] | | LAB | | | Neutrophils | [address];[place] | | | | | | [address] | | | | + + + + + + | % | 37.06Comment: Testing | % | EXTERNAL | | | Lymphocytes | performed at [facility];[address] | | LAB | | | | [address];[place] | | | | | | [address] | | | | + + + + + + | % Monocytes | 9.60Comment: Testing | % | EXTERNAL | | | | performed at [facility];[address] | | LAB | | | | [address];[place] | | | | | | [address] | | | | + + + + + + | % | 1.30Comment: Testing | % | EXTERNAL | | | Eosinophils | performed at [facility];[address] | | LAB | | | | [address];[place] | | | | | | [address] | | | | + + + + + + | % Basophils | 1.39Comment: Testing | % | EXTERNAL | | | | performed at [facility];[address] | | LAB | | | | [address];[place] | | | | | | [address] | | | | + + + + + + | Absolute | 6.64Comment: Testing | 1.90 - 7.40 | EXTERNAL | | | Segmented | performed at [facility];[address] | K/uL | LAB | | | Neutrophils | [address];[place] | | | | | | [address] | | | | + + + + + + | Absolute | 4.86 (H)Comment: Testing | 1.00 - 3.90 | EXTERNAL | | | Lymphocytes | performed at [facility];[address] | K/uL | LAB | | | | [address];[place] | | | | | | [address] | | | | + + + + + + | Absolute | 1.26 (H)Comment: Testing | 0.00 - 0.80 | EXTERNAL | | | Monocytes | performed at [facility];[address] | K/uL | LAB | | | | [address];[place] | | | | | | [address] | | | | + + + + + + | Absolute | 0.17Comment: Testing | 0.00 - 0.50 | EXTERNAL | | | Eosinophils | performed at [facility];[address] | K/uL | LAB | | | | [address];[place] | | | | | | [address] | | | | + + + + + + | Absolute | 0.18 (H)Comment: Testing | 0.00 - 0.10 | EXTERNAL | | | Basophils | performed at [facility];[address] | K/uL | LAB | | | | [address];[place] | | | | | | [address] | | | | + + + [...] EXTERNAL | | | | performed at [facility];[address] | | LAB | | | | [facility];[place], [place] | | | | | | [address] | | | | + + + [...] LAB | | | | performed at [facility];[address] | | | | | | [address];[place], [place] | | | | | | [address] | | | | + + + [...] EXTERNAL | | | | performed at [facility];[address] | mmol/L | LAB | | | | [address];[place] | | | | | | [address] | | | | + + + + + + | K | 3.7Comment: SLT | 3.5 - 4.9 | EXTERNAL | | | | HEMOLYSISTesting | mmol/L | LAB | | | | performed at [facility];[address] | | | | | | [address];[place] | | | | | | [address] | | | | + + + + + + | Cl | 110 (H)Comment: Testing | 99 - 109 mmol/L | EXTERNAL | | | | performed at [facility];[address] | | LAB | | | | [address];[place] | | | | | | [address] | | | | + + + + + + | CO2 | 24Comment: Testing | 23 - 32 mmol/L | EXTERNAL | | | | performed at [facility];[address] | | LAB | | | | [address];[place] | | | | | | [address] | | | | + + + + + + | Anion Gap | 13Comment: Testing | 5 - 20 mmol/L | EXTERNAL | | | | performed at [facility];[address] | | LAB | | | | [address];[place] | | | | | | [address] | | | | + + + + + + | Glucose, | 109 (H)Comment: Testing | 65 - 99 mg/dL | EXTERNAL | | | Fasting | performed at [facility];[address] | | LAB | | | | [address];[place] | | | | | | [address] | | | | + + + + + + | BUN | 24Comment: Testing | 8 - 25 mg/dL | EXTERNAL | | | | performed at [facility];[address] | | LAB | | | | [address];[place] | | | | | | [address] | | | | + + + + + + | Creatinine | 1.7 (H)Comment: Testing | 0.50 - 1.00 | EXTERNAL | | | | performed at [facility];888 | mg/dL | LAB | | | | [address];[place] | | | | | | [address] | | | | + + + + + + | BUN/Creatin | 14Comment: Testing | | EXTERNAL | | | ine Ratio | performed at [facility];[address] | | LAB | | | | [address];[place] | | | | | | [address] | | | | + + + + + + | Calcium | 7.4 (L)Comment: Testing | 8.5 - 10.5 | EXTERNAL | | | | performed at [facility];888 | mg/dL | LAB | | | | [address];[place] | | | | | | [address] | | | | + + + + + + | Protein, | 7.0Comment: Testing | 6.3 - 8.2 g/dL | EXTERNAL | | | Total | performed at [facility];[address] | | LAB | | | | [address];[place] | | | | | | [address] | | | | + + + + + + | Albumin | 2.6 (L)Comment: Testing | 3.3 - 4.8 g/dL | EXTERNAL | | | | performed at [facility];[address] | | LAB | | | | [address];[place] | | | | | | [address] | | | | + + + + + + | Globulin | 4.3Comment: Testing | 1.3 - 4.9 g/dL | EXTERNAL | | | | performed at [facility];[address] | | LAB | | | | [address];[place] | | | | | | [address] | | | | + + + + + + | A/G Ratio | 0.6 (L)Comment: Testing | 1.0 - 2.4 | EXTERNAL | | | | performed at [facility];[address] | | LAB | | | | [address];[place] | | | | | | [address] | | | | + + + + + + | Bilirubin | 0.4Comment: Testing | 0.1 - 1.5 mg/dL | EXTERNAL | | | Total | performed at [facility];[address] | | LAB | | | | [address];[place] | | | | | | [address] | | | | + + + + + + | ALP, | 92Comment: Testing | 35 - 115 U/L | EXTERNAL | | | External | performed at [facility];[address] | | LAB | | | | [address];[place] | | | | | | [address] | | | | + + + + + + | AST | 35Comment: SLT | 10 - 45 U/L | EXTERNAL | | | | HEMOLYSISTesting | | LAB | | | | performed at [facility];[address] | | | | | | [facility];[place] | | | | | | [address] | | | | + + + + + + | ALT | 29Comment: Testing | 10 - 65 U/L | EXTERNAL | | | | performed at [facility];[address] | | LAB | | | | [address];[place] | | | | | | [address] | | | | + + + [...] | | | | | | at [facility];[address] [facility] | | | | | | Blvd;[place] [address] | | | | + + + [...] EXTERNAL | | | | performed at [facility];888 | uIU/mL | LAB | | | | [address];[place], [place] | | | | | | [address] | | | | + + + [...] + + | Historically converted procedure from [facility] environment | EXTERNAL LAB | + [...] | | | | | | ACUTE SD Testing | | | | | | performed at [facility];[address] | | | | | | [facility];[place], [place] | | | | | | [address] | | | | + + + [...] GROWTH | | | Testing performed at [facility], | | | [address] [place] [address] | | + + + + +---------+ [...] | | study for comparison: None FINDINGS: Testing Machine Operator 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 | | | degenerative [...] study | | for comparison: None FINDINGS: Testing Machine Operator 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 degenerative changes of the [...] NEGATIVE Testing | | | performed at [facility];[address] [place] [address];[place] [address] | | + + + + +---------+ [...] | | | | | | at [facility];[address] [place] [address] | | | | | | [facility];[place] [address] | | | | + + + [...] EXTERNAL | | | | performed at [facility];[address] | | LAB | | | | [address];[place], [place] | | | | | | [address] | | | | + + [...] EXTERNAL | | | | performed at [facility] | | LAB | | | | [address];[place] | | | | | | [address] | | | | + + + [...] EXTERNAL | | | | performed at [facility];888 | mmol/L | LAB | | | | [address];[place], [place] | | | | | | [address] | | | | + + + [...] | | | | | [place] [address] | | | | + + + [...] [place] | | | | | | [address] | | | | + + + [...] | | | | | | editor magazine Shala Gramajo | | | | | [...] EXTERNAL | | | | performed at [facility];[address] | | LAB | | | | [address];[place] | | | | | | [address] | | | | + + + [...] EXTERNAL | | | | performed at [facility];[address] | | LAB | | | | [facility], [place] | | | | | | [address] | | | | + + + [...] LAB | | | | performed at [facility] [place] [facility] | | | | | | [address];[place], [place] | | | | | | [address] | | | | + + + [...] EXTERNAL | | | | performed at [facility] [place];[address] | | LAB | | | | [address];[place], [place] | | | | | | [address] | | | | + + + [...] EXTERNAL | | | | performed at [facility] [place] [facility];[address] | | LAB | | | | [address];[place] | | | | | | [address] | | | | + + + [...] K/uL | LAB | | | | [facility] [place];[address] | | | | | | [address];[place] [address] | | | | + + + + + + | RED CELL | 4.17Comment: Testing | 3.70 - 5.10 | EXTERNAL | | | COUNT | performed at [facility] [place] [facility];888 | M/uL | LAB | | | | [address];[place] | | | | | | [address] | | | | + + + + + + | Hgb | 14.6Comment: Testing | 11.3 - 15.5 | EXTERNAL | | | | performed at [facility] [place] [facility];888 | g/dL | LAB | | | | [address];[place] | | | | | | [address] | | | | + + + + + + | Hematocrit, | 42.7Comment: Testing | 34.0 - 46.0 % | EXTERNAL | | | POC | performed at [facility] [place];[address] | | LAB | | | | [address];[place] | | | | | | [address] | | | | + + + + + + | MCV | 102.3 (H)Comment: | 80.0 - 100.0 fl | EXTERNAL | | | | Testing performed at | | LAB | | | | [facility] [place] [facility];[address] | | | | | | [address];[place] [address] | | | | + + + + + + | MCH | 35.0 (H)Comment: Testing | 27.0 - 34.0 pg | EXTERNAL | | | | performed at [facility] [place];888 | | LAB | | | | [address];[place] | | | | | | [address] | | | | + + + + + + | MCHC | 34.2Comment: Testing | 32.0 - 35.5 | EXTERNAL | | | | performed at [facility] [place];888 | g/dL | LAB | | | | [address];[place] | | | | | | [address] | | | | + + + + + + | RDW-CV | 49.9Comment: Testing | 37 - 53 fl | EXTERNAL | | | | performed at [facility] [place] [facility];[address] | | LAB | | | | [address];[place] | | | | | | [address] | | | | + + + + + + | Platelet | 209Comment: Testing | 150 - 400 K/uL | EXTERNAL | | | Count | performed at [facility];[address] | | LAB | | | Plasma | [address];[place] | | | | | | [address] | | | | + + + + + + | MPV | 11.1Comment: Testing | fl | EXTERNAL | | | | performed at [facility] [place] [facility];[address] | | LAB | | | | [address];[place] | | | | | | [address] | | | | + + + + + + | RBC | 1+Comment: GIANT | | EXTERNAL | | | Morphology | PLATELETS1+MACROTesting | | LAB | | | | performed at [facility];[address] | | | | | | [address];[place] | | | | | | [address] | | | | | |Testing performed at [facility] [place];[address];[place] [address] | | | | | | | | | | + + + + + + | Differentia | MANUALComment: Testing | | EXTERNAL | | | l Type | performed at [facility] [place];[address] | | LAB | | | | [address] [address];[place] | | | | | | [address] | | | | + + + + + + | Segmented | 58Comment: Testing | % | EXTERNAL | | | Neutrophils | performed at [facility] [place];888 | | LAB | | | Manual | [address];[place] | | | | | | [address] | | | | + + + + + + | Lymphocytes | 32Comment: Testing | % | EXTERNAL | | | Manual | performed at [facility] [place];888 | | LAB | | | | [address];[place] | | | | | | [address] | | | | + + + + + + | Monocytes | 9Comment: Testing | % | EXTERNAL | | | Manual | performed at [facility] [place];888 | | LAB | | | | [address];[place] | | | | | | [address] | | | | + + + + + + | Eosinophils | 1Comment: Testing | % | EXTERNAL | | | Manual | performed at [facility] [place];888 | | LAB | | | | [address];[place] | | | | | | [address] | | | | + + + + + + | Absolute | 9.39 (H)Comment: Testing | 1.90 - 7.40 | EXTERNAL | | | Neutrophils | performed at [facility] [place];888 | K/uL | LAB | | | | [address];[place] | | | | | | [address] | | | | + + + + + + | Absolute | 5.18 (H)Comment: Testing | 1.00 - 3.90 | EXTERNAL | | | Lymphocytes | performed at [facility] [place];888 | K/uL | LAB | | | | [address];[place] | | | | | | [address] | | | | + + + + + + | Absolute | 1.46 (H)Comment: Testing | 0.00 - 0.80 | EXTERNAL | | | Monocytes | performed at [facility] [place];888 | K/uL | LAB | | | | [address];[place] | | | | | | [address] | | | | + + + + + + | Absolute | 0.16Comment: Testing | 0.00 - 0.50 | EXTERNAL | | | Eosinophils | performed at [facility] [place];888 | K/uL | LAB | | | | [address];[place] | | | | | | [address] | | | | + + + + + + | Na | 140Comment: Testing | 135 - 143 | EXTERNAL | | | | performed at [facility] [place];888 | mmol/L | LAB | | | | [address];[place] | | | | | | [address] | | | | + + + + + + | K | 2.8 (L)Comment: Testing | 3.5 - 4.9 | EXTERNAL | | | | performed at [facility] [place];888 | mmol/L | LAB | | | | [address];[place] | | | | | | [address] | | | | + + + + + + | Cl | 100Comment: Testing | 99 - 109 mmol/L | EXTERNAL | | | | performed at [facility] [place];888 | | LAB | | | | [address];[place] | | | | | | [address] | | | | + + + + + + | CO2 | 29Comment: Testing | 23 - 32 mmol/L | EXTERNAL | | | | performed at [facility] [place];888 | | LAB | | | | [address];[place] | | | | | | [address] | | | | + + + + + + | Anion Gap | 14Comment: Testing | 5 - 20 mmol/L | EXTERNAL | | | | performed at [facility] [place];888 | | LAB | | | | [address];[place] | | | | | | [address] | | | | + + + + + + | Glucose, | 107 (H)Comment: Testing | 65 - 99 mg/dL | EXTERNAL | | | Fasting | performed at [facility] [place];888 | | LAB | | | | [address];[place] | | | | | | [address] | | | | + + + + + + | BUN | 28 (H)Comment: Testing | 8 - 25 mg/dL | EXTERNAL | | | | performed at [facility] [place];888 | | LAB | | | | [address];[place] | | | | | | [address] | | | | + + + + + + | Creatinine | 2.4 (H)Comment: Testing | 0.50 - 1.00 | EXTERNAL | | | | performed at [facility] [place];888 | mg/dL | LAB | | | | [address];[place] | | | | | | [address] | | | | + + + + + + | BUN/Creatin | 12Comment: Testing | | EXTERNAL | | | ine Ratio | performed at [facility] [place];888 | | LAB | | | | [address];[place] | | | | | | [address] | | | | + + + + + + | Calcium | 8.1 (L)Comment: Testing | 8.5 - 10.5 | EXTERNAL | | | | performed at [facility] [place];888 | mg/dL | LAB | | | | [address];[place] | | | | | | [address] | | | | + + + + + + | Protein, | 9.3 (H)Comment: Testing | 6.3 - 8.2 g/dL | EXTERNAL | | | Total | performed at [facility] [place];888 | | LAB | | | | [address];[place] | | | | | | [address] | | | | + + + + + + | Albumin | 3.3Comment: Testing | 3.3 - 4.8 g/dL | EXTERNAL | | | | performed at [facility] [place];888 | | LAB | | | | [address];[place] | | | | | | [address] | | | | + + + + + + | Globulin | 6.0 (H)Comment: Testing | 1.3 - 4.9 g/dL | EXTERNAL | | | | performed at [facility] [place];888 | | LAB | | | | [address];[place] | | | | | | [address] | | | | + + + + + + | A/G Ratio | 0.5 (L)Comment: Testing | 1.0 - 2.4 | EXTERNAL | | | | performed at [facility] [place];888 | | LAB | | | | [address];[place] | | | | | | [address] | | | | + + + + + + | Bilirubin | 0.4Comment: Testing | 0.1 - 1.5 mg/dL | EXTERNAL | | | Total | performed at [facility] [place];888 | | LAB | | | | [address];[place] | | | | | | [address] | | | | + + + + + + | ALP, | 129 (H)Comment: Testing | 35 - 115 U/L | EXTERNAL | | | External | performed at [facility] [facility];888 | | LAB | | | | [address];[place] | | | | | | [address] | | | | + + + + + + | AST | 39Comment: Testing | 10 - 45 U/L | EXTERNAL | | | | performed at [facility] [place] [facility];888 | | LAB | | | | [address];[place] | | | | | | [address] | | | | + + + + + + | ALT | 38Comment: Testing | 10 - 65 U/L | EXTERNAL | | | | performed at [facility];888 | | LAB | | | | [address];[place] | | | | | | [address] | | | | + + + [...] | | | | | | at [facility] [facility];[address] | | | | | | [address];[place] [address] | | | | + + + + + + | CK, Total | 151Comment: Testing | 30 - 240 U/L | EXTERNAL | | | | performed at [facility] [place];888 | | LAB | | | | [address];[place] | | | | | | [address] | | | | + + + [...] | | | | | performed at [facility] [facility];[address] | | | | | | [address];[place] | | | | | | [address] | | | | + + + + + + | aPTT, | 26Comment: Testing | 23 - 32 seconds | EXTERNAL | | | Patient | performed at [facility] [place];888 | | LAB | | | | [address];[place] | | | | | | [address] | | | | + + + + + + | CK-MB | 3.9 (H)Comment: Testing | 0.5 - 3.6 ng/mL | EXTERNAL | | | | performed at [facility] [facility];888 | | LAB | | | | [address];[place] | | | | | | [address] | | | | + + + [...] | | | | | | ACUTE SD Testing | | | | | | performed at [facility] [place];888 | | | | | | [address] [facility];[place], [place] | | | | | | [address] | | | | + + + [...]
--- OUTSIDE RECORDS SUMMARY | ~2019-06-03 | XMS | Encounter Summary ---
Demographics + + + | Address | [address] | | | [place] [address] | + + + | Home Phone [...] + + + | Author | [facility] | | | and [place] | + + + | Organization | [facility] | | | and [...] Team Providers + +------+ + | Care Game Preserve Manager Name | Role | Phone | + [...] [address] | Dx) | | | | [place], | [place], [place] | | | | | [place] [address] | [address] | | | | | [phone] | | | +--------+ + + + [...]
--- OUTSIDE RECORDS SUMMARY | ~2019-06-03 | XMS | Clinical Summary ---
Demographics + + + | Address | [address] | | | [place] [address] | + + + | Home Phone | | + + + | Preferred Language | Unknown | + + + | Marital Status | | + + + | Scientologist Affiliation | 1041 | + + + | Race | Unknown | + + + | Ethnic Group | Unknown | + + + Author + + + | Author | [facility] (Historical as of | | | 01-06-19) | + + + | Organization | [facility] (Historical as of | | | 01-06-19) [...] Team Providers + +------+ + | Care Subassembly Assembler Name | Role | Phone | [...] | MA - GENERIC | MA-GEN | [id number] | [employer] | | | | | [...] | | | | | | | [phone] | + +--------+ +--------+ + +
--- OUTSIDE RECORDS SUMMARY | ~2019-06-03 | XMS | Encounter Summary ---
Demographics + + + | Address | [address] | | | [place] [address] | + + + | Home Phone | | + + + | Preferred Language | Unknown | + + + | Marital Status | Unknown | + + + | Mandaen Affiliation | Unknown | + + + | Race | Unknown | + + + | Ethnic Group | Unknown | + + + Author + + + | Author | [facility] | + + + | Organization | [facility] | + + + | Address | Unknown | + + + | Phone | Unavailable | + + + Care Team Providers + +------+ + | Care Agricultural Produce Packer Name | Role | Phone | [...] + + | 01/28/ | Emergency | [facility] Emergency | | | | 2014 | | Department [address] | | | | | [address] | | | | | | [facility] | | | | | | [place], [place] | | | | | | [address] | | | | | | [phone] | | | +--------+ + + + [...]
--- OUTSIDE RECORDS SUMMARY | ~2019-06-03 | XMS | Encounter Summary ---
Demographics + + + | Address | [address] | | | [place] [address] | + + + | Home Phone | | + + + | Preferred Language | Unknown | + + + | Marital Status | Single | + + + | Synagogue Affiliation | 1041 | + + + | Race | Unknown | + + + | Ethnic Group | Unknown | + + + Author + + + | Author | [facility] | | | and [place] | + + + | Organization | [facility] | | [...] Team Providers + +------+ + | Care Tool Engine Lathe Set Up Operator Name | Role | Phone | + +------+ + | Yovani Santana MD | PCP | | + +------+ + Encounter Details +--------+ + + + + | Date | Type | Department | Care Team | Description | +--------+ + + + + | 05/10/ | Hospital | [facility] | Gary Melendez, | Hypoxemia; | | 2014 | Encounter | MED CTR XRAY [address] | MD [address] | Restrictive lung | | | | [place] | [place], [place] | disease | | | | [place] [address] | [address] | | | | | [phone] | | | | | | | [...] + | MISCELLANEOUS LAB | | | [phone] | + +---------+ + + | MISCELANIOUS LAB | | | [phone] | + +---------+ + + documented in this encounter Visit Diagnoses + + | Diagnosis | + + | Hypoxemia | + + | Restrictive lung disease Other diseases of lung, not elsewhere classified | + + documented in this encounter"
--- OUTSIDE RECORDS SUMMARY | ~2019-06-03 | XMS | Encounter Summary ---
Demographics + + + | Address | [address] | | | [place] [address] | + + + | Home Phone | | + + + | Preferred Language | Unknown | + + + | Marital Status | Single | + + + | Temple Affiliation | 1041 | + + + | Race | Unknown | + + + | Ethnic Group | Unknown | + + + Author + + + | Author | [facility] | | | and [place] | + + + | Organization | [facility] | | | [...] Team Providers + +------+ + | Care Acetylene Cutter Name | Role | Phone | + +------+ + | Rick Osorio DO | PCP | | + +------+ + Encounter Details +--------+ + + + + | Date | Type | Department | Care Team | Description | +--------+ + + + + | 12/05/ | Orders Only | [facility] | Emil Oliva MD | | | 2013 | | NEPRHOLOGY [place] | [address] [facility] | | | | | [address] | [address] [place], [place] | | | | | [address] [place], [place] | [address] | | | | | [address] | | | | | | [phone] | | | +--------+ + + + [...]
--- OUTSIDE RECORDS SUMMARY | ~2019-06-03 | XMS | Encounter Summary ---
Demographics + + + | Address | [address] | | | [place] [address] | + + + | Home Phone | | + + + | Preferred Language | Unknown | + + + | Marital Status | Single | + + + | Jainism Affiliation | [id number] | + + + [...] Team Providers + +------+ + | Care Resource Coordinator Name | Role | Phone | + +------+ + | Yovani Santana MD | PCP | | + +------+ + Encounter Details +--------+ + + + + | Date | Type | Department | Care Team | Description | +--------+ + + + + | 01/28/ | Hospital | [facility] | Jacob Smith, | | | 2014 - | Encounter | [facility] | MD Carmelo SANTAMARIA | | | | | CARE FLOOR [address] | [place] [address] | | | 02/03/ | | TIERA SANTAMARIA | [phone] | | | 2014 | | [place], [place] | | | | | | [address] | | | | | | [phone] | | | +--------+ + + + [...] Date of Service: 02/03/15 1029 Status: Signed Community Ambassador: Jose Maria Espinal MD (Physician) Related Notes: Original Note by Jose Maria Espinal MD (Physician) filed at 02/04/15 1345 [facility] Service: Hospitalist Physician Discharge Summary Patient [...] 2-4 lpm, Presented as a transfer from [facility] in [place] for fever of 101 and altered mental s tatus. She was discharged from [facility] on 01/09/15 for elevated troponin [...] antibiotics. She was brought back in to [facility] for fever and confusion. UA and CXR reportedly negative there. SBP was 90s. She had formed stool there but en route here she did develop watery stool, tested C diff + here.".......per admitting MD/Dr. Smith . The patient was admitted to [facility] with a diagnosis of Clostridium difficile infection while she was being transferred from [facility] with fever and altered mental status. Th e patient has underlying immunosuppression secondary to a remote history of liver transplant on chronic immunosuppressive therapy with azathioprine and cyclosporin. Following her trans fletcher to [facility], she was started on oral [...] stable for discharge to return to [facility] in [place] on Jan. ADDITIONAL ISSUES 1. Recurrent atelectasis. [...] days. I would urge managing physician at half-way facility where the patient resides in [facility] to check anothe r magnesium level [...] Procedure: COLONOSCOPY; Surgeon: Juan Ramey MD; Location: [facility] ENDOSCOPY; Service: Gastroenterology; Laterality: N/A; [...] Follow up: Ki De Jesus DO [address] [facility] [address] [place] [address] Schedule an appointment as soon as possible [...] to Get Your Medications You need to pecan picker these prescriptions. We sent some of them to a specific pharmacy. Go t o these places to get your medications. [facility] - [place], [place] - [address] - lactobacillus granules [address] [place] [address] You may get the following medications from [...] 02/03/151608 Date of Service: 02/03/151608 Status: Signed Community Ambassador: Pedro Partida RN (Registered Nurse) 02/03/151602 Discharge [...] Oriented Anticipated Disposition Facility Type alf facility Half-Way Facility Other (comment) ([facility] in [place]) Disposition: Return to [facility] Transportation: Facility van to transport. All orders, [...] 02/03/15899 Date of Service: 02/02/151521 Status: Signed Community Ambassador: Jose Maria Espinal MD (Physician) Related Notes: Original Note by Jose Maria Espinal MD (Physician) filed at 02/02/15 1950 [facility] Service: Hospitalist Progress Note Pt: Cole Ernst AGE/SEX: 69 y.o. female : 1945 ROOM: [facility] History of Present Illness: " The patient is a 69 y.o. female with significant past medical history of liver transplant int he 90s on cyclosporine and imuran, chronic pain on methadone, CKD st 3, chronic home O2 of unclear etiology from 2-4 lp, Presented as a transfer from [facility] in [place] for fever of 101 and altered mental s tatus. She was discharged from [facility] on 01/09/15 for elevated troponin [...] antibiotics. She was brought back in to [facility] for fever and confusion. UA and [...] sulfate. Case management establishing readiness of the [facility] in [place] to accept the patient in the next [...] contrast. Prior study for comparison: None FINDINGS: Shank Maker 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 deg enerative changes of [...] LA/Ao: 1.57 D-E Excursion: 2.11 cm E-F Hernando: 0.09 m/s EPSS: 0.48 cm HR: 77.41 [...] TV A Billy: 0.66 m/s TV Dec Hernando: 4.36 m/s2 TV Dec Time: 184.41 ms TV E Billy: 0.80 m/s TV E/A Rat io: 1.21 Law Reporter: NEDRA Authenticated by: Gil Martines MD Report [...] Procedure: COLONOSCOPY; Surgeon: Juan Ramey MD; Location: [facility]COPY; Service: Gastroenterology; Laterality: N/A; [...] by Jose Maria Espinal MD at 02/01/15 3390 Author: Jose Maria Espinal MD Service: Hospitalist Author Type: Physician Filed: 02/02/15 1520 Date of Service: 02/01/151716 Status: Signed Community Ambassador: Jose Maria Espinal MD (Physician) Related Notes: Original Note by Jose Maria Espinal MD (Physician) filed at 02/02/15 1308 [facility] Service: Hospitalist Progress Note Pt: Cole Ernst AGE/SEX: 69 y.o. female : 1945 ROOM: [address] [place] [address] History of Present Illness: " The patient is a 69 y.o. female with significant past medical history of liver transplant int he 90s on cyclosporine and imuran, chronic pain on methadone, CKD st 3, chronic home O2 of unclear etiology from 2-4 lpm, Presented as a transfer from [facility] for fever of 101 and altered mental s tatus. She was discharged from [facility] on 01/09/15 for elevated troponin [...] antibiotics. She was brought back in to [facility] for fever and confusion. UA and [...] establishing readiness of the faci lity in [place] to accept the patient in the next [...] contrast. Prior study for comparison: None FINDINGS: Shank Maker 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 deg enerative changes of [...] LA/Ao: 1.57 D-E Excursion: 2.11 cm E-F Hernando: 0.09 m/s EPSS: 0.48 cm HR: 77.41 [...] TV A Billy: 0.66 m/s TV Dec Hernando: 4.36 m/s2 TV Dec Time: 184.41 ms TV E Billy: 0.80 m/s TV E/A Rat io: 1.21 Law Reporter: NEDRA Authenticated by: Gil Martines MD Report [...] Procedure: COLONOSCOPY; Surgeon: Juan Ramey MD; Location: [facility] ENDOSCOPY; Service: Gastroenterology; Laterality: N/A; [...] Currently with normal liver function tests. 3. Bhvdm-dq-uotzerx liver disease, stage III. Creatinine level has [...] 01/31/152124 Date of Service: 01/31/151513 Status: Signed Community Ambassador: Jose Maria Espinal MD (Physician) Related Notes: Original Note by Jose Maria Espinal MD (Physician) filed at 01/31/15 1523 [facility] Service: Hospitalist Progress Note Pt: Cole Ernst AGE/SEX: 69 y.o. female : 1945 ROOM: [address] [place] [address] History of Present Illness: " The patient is a 69 y.o. female with significant past medical history of liver transplant int he 90s on cyclosporine and imuran, chronic pain on methadone, CKD st 3, chronic home O2 of unclear etiology from 2-4 lpm, Presented as a transfer from [facility] in [place] for fever of 101 and altered mental s tatus. She was discharged from [facility] on 01/09/15 for elevated troponin [...] antibiotics. She was brought back in to [facility] for fever and confusion. UA and [...] contrast. Prior study for comparison: None FINDINGS: Shank Maker 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 deg enerative changes of [...] LA/Ao: 1.57 D-E Excursion: 2.11 cm E-F Hernando: 0.09 m/s EPSS: 0.48 cm HR: 77.41 [...] TV A Billy: 0.66 m/s TV Dec Hernando: 4.36 m/s2 TV Dec Time: 184.41 ms TV E Billy: 0.80 m/s TV E/A Rat io: 1.21 Law Reporter: NEDRA Authenticated by: Gil Martines MD Report [...] Procedure: COLONOSCOPY; Surgeon: Juan Ramey MD; Location: [facility]OSCOPY; Service: Gastroenterology; Laterality: N/A; [...] 1313 Date of Service: 01/31/151312 Status: Signed Community Ambassador: Catina Moon () Attempted visit. Pt sitting in chair sleeping. No family present. Chaplain Catina Moon onver alessandro Transaction, Provider Unknown - 01/31/2015 11:35 AM PDT Therapy Progress Note by Mahi Yanes PTA at 01/31/15 1135 Author: Mahi Yanes PTA Service: (none) Author Type: Tentmaker Filed: 01/31/15 1410 Date of Service: 01/31/151134 Status: Signed Community Ambassador: Mahi Yanes PTA (Tentmaker) 01/31/15 1135 PT Last Visit PT Received [...] PDT Case Management by Gregg Keene MS, SHIPFITTER HELPER at 01/31/15 1007 Author: Gregg Keene, MS, SHIPFITTER HELPER Service: (none) Author Type: Director Of Casino Filed: 01/31/15 1546 Date of Service: 01/31/15 1007 Status: Addendum Community Ambassador: Gregg Keene , SHIPFITTER HELPER (Director Of Casino) Related Notes: Original Note by Gregg Yecenia MS, SHIPFITTER HELPER (Director Of Casino) filed at 01/31/15 1007 Discharge planning - CM faxed updated clinical to Gi at [facility]. Discharge form s on front of chart for MD signature. CM notified Gi of anticipated d/c this weekend. onver alessandro Transaction, Provider Unknown - 01/30/2015 5:05 PM PDT Therapy Progress Note by Gail Vernon PT at 01/30/15 1705 Author: Gail Vernon PT Service: (none) Author Type: Physical Therapist Filed: 01/30/15 9622 Date of Service: 01/30/15 1705 Status: Signed Community Ambassador: Gail Vernon PT (Physical Therapist) 01/30/15 170 [...] Service: Hospitalist Author Type: Physician Filed: 01/31/15 1401 Date of Service: 01/30/15 1414 Status: Signed Community Ambassador: Jose Maria Espinal MD (Physician) Related Notes: Original Note by Jose Maria Espinal MD (Physician) filed at 01/30/15 4625 [facility] Service: Hospitalist Progress Note Pt: Cole [...] 2-4 lpm, Presented as a transfer from [facility] in [place] for fever of 101 and altered mental s tatus. She was discharged from [facility] on 01/09/15 for elevated troponin [...] antibiotics. She was brought back in to [facility] for fever and confusion. UA and [...] contrast. Prior study for comparison: None FINDINGS: Shank Maker 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 deg enerative changes of [...] LA/Ao: 1.57 D-E Excursion: 2.11 cm E-F Hernando: 0.09 m/s EPSS: 0.48 cm HR: 77.41 [...] TV A Billy: 0.66 m/s TV Dec Hernando: 4.36 m/s2 TV Dec Time: 184.41 ms TV E Billy: 0.80 m/s TV E/A Rat io: 1.21 Law Reporter: NEDRA Authenticated by: Gil Martines MD Report [...] Procedure: COLONOSCOPY; Surgeon: Juan Ramey MD; Location: [facility] ENDOSCOPY; Service: Gastroenterology; Laterality: N/A; [...] Patient's live r functions remain normal. 3. Mizly-dp-svldrph kidney disease stage III. Creatinine level has [...] by Jose Maria Espinal MD at 01/29/15 135 Author: Jose Maria Espinal MD Service: Hospitalist Author Type: Physician Filed: 01/30/15 0957 Date of Service: 01/29/151650 Status: Signed Community Ambassador: Jose Maria Espinal MD (Physician) Related Notes: Original Note by Jose Maria Espinal MD (Physician) filed at 01/29/152024 [facility] Service: Hospitalist Progress Note Pt: Cole Ernst AGE/SEX: 69 y.o. female : 1945 ROOM: [address] [place] [address] History of Present Illness: " The patient is a 69 y.o. female with significant past medical history of liver transplant int he 90s on cyclosporine and imuran, chronic pain on methadone, CKD st 3, chronic home O2 of unclear etiology from 2-4 lpm, Presented as a transfer from [facility] in [place] for fever of 101 and altered mental s tatus. She was discharged from [facility] on 01/09/15 for elevated troponin [...] antibiotics. She was brought back in to [facility] for fever and confusion. UA and [...] contrast. Prior study for comparison: None FINDINGS: Shank Maker 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 deg enerative changes of [...] LA/Ao: 1.57 D-E Excursion: 2.11 cm E-F Hernando: 0.09 m/s EPSS: 0.48 cm HR: 77.41 [...] TV A Billy: 0.66 m/s TV Dec Hernando: 4.36 m/s2 TV Dec Time: 184.41 ms TV E Billy: 0.80 m/s TV E/A Rat io: 1.21 Law Reporter: NEDRA Authenticated by: Gil Martines MD Report [...] Procedure: COLONOSCOPY; Surgeon: Juan Ramey MD; Location: [facility] ENDOSCOPY; Service: Gastroenterology; Laterality: N/A; [...] Date of Service: 01/29/15 1525 Status: Signed Community Ambassador: Pedro Partida RN (Registered Nurse) 01/29/15 1521 [...] Oriented Anticipated Disposition Facility Type alf facility Half-Way Facility Other (comment) ([facility] in [place]) Met with: patient and discussed discharge planning, Pt is a 69 y.o., female who was discharged from [facility] 2 wee ks ago to [facility]. Her sister, Renée Tipton is emergency contact, . Patient's PCP is: KI DE JESUS Patient's insurance: Medicare Coverage concerns: Medication coverage/concerns: Community resources utilized / needed: Assistance in transportation: Identification of any specific education / training: Barriers to Discharge / Alternative housing needed: Anticipated DCP: Return to [facility] PEDRO PARTIDA RN onver alessandro Nicole Provider Unknown - 01/29/2015 8:55 AM PDT Therapy Progress Note by Barbara Edmond PT at 01/29/15 0855 Author: Barbara Edmond PT Service: (none) Author Type: Physical Therapist Filed: 01/29/1533 Date of Service: 01/29/15854 Status: Signed Community Ambassador: Barbara Edmond PT (Physical Therapist) 01/29/15 08 [...] to SNF after current hospital stay. Just [employer]PER[employer] PREPARATION Júnior ADL's and Júnior mobility using 4ww for short room distances, had been using manual w/c in hallway at SNF. Reports a few falls at facility ov er last week, otherwise denies falls over last 6mos. Was getting therapies at facility. Prior Function Level of [place] Modified independent with ADLs;Modified independent with functional [...] Barriers to Discharge Physical Deficits Impacting Functional [place];Self-care Deficit s Impacting Functional [place];Equipment Needs (see comment);Pain Recommendation Comments Needs return [...] Barriers to Discharge Physical Deficits Impacting Functional [place];Self-care Deficit s Impacting Functional [place];Equipment Needs (see comment);Pain Recommendation Comments Needs return [...] 01/29/15831 Date of Service: 01/29/15830 Status: Signed Community Ambassador: Malick Ramos RN (Registered Nurse) Infection Prevention Note: Patient stool is positive for C. Diff. Contact Enteric Precautions are required until furt her notice. Thank you. Malick Ramos RN, BA, Traveling Freight Agent onver alessandro Transaction, Provider Unknown - 01/28/2015 3:23 PM PDT Progress Notes by Jimena Duarte RPH at 01/28/151522 Author: Jimena Duarte RPH Service: (none) Author Type: Pharmacist Filed: 01/28/15 152 Date of Service: 01/28/151522 Status: Signed Community Ambassador: Jimena Duarte RPH (Pharmacist) Zosyn Extended Infusion Initial Consult-Per Dr. Jacob Ernst 69 y.o. female CrCl cannot be calculated (Unknown ideal weight.). NEUTROPHILS ABS Date Value Ref Range Status 01/18/2015 3.26 1.90 - 7.40 K/uL Final Comment: Testing performed at [facility], [address] [place] [address] CREATININE Date Value Ref Range Status 01/19/2015 0.96 0.50 - 1.00 mg/dL Final Comment: Testing performed at [facility], [address] [place] [id number] Zosyn extended Infusion loading and maintenance dose guidelines Loading Dose 4.5 g IV Over 30 minutes CrCl >20 ml/min 3.375 g IV Q 8 hours Over 4 hours CrCl 10-20 ml/min 3.375 g IV Q 12 hours Over 4 hours CrCl <10, HD, PD Follow [facility] Dosage Adjustments in Renal Dysfunction [...] 01/28/151515 Date of Service: 01/28/151515 Status: Signed Community Ambassador: Jimena Duarte RPH (Pharmacist) Renal Dosing Monitoring: [...] | | | | | [place] [address] | | | | + + + + + + | RED CELL | 2.72 (L)Comment: Testing | 3.70 - 5.10 | EXTERNAL | | | COUNT | performed at [facility], [address] | M/uL | LAB | | | | [address], | | | | | | [place] [address] | | | | + + + + + + | Hgb | 9.6 (L)Comment: Testing | 11.3 - 15.5 | EXTERNAL | | | | performed at [facility], [address] | g/dL | LAB | | | | [address], | | | | | | [place] [address] | | | | + + + + + + | Hematocrit, | 28.8 (L)Comment: Testing | 34.0 - 46.0 % | EXTERNAL | | | POC | performed at [facility], [address] | | LAB | | | | [address], | | | | | | [place] [address] | | | | + + + + + + | MCV | 106.0 (H)Comment: | 80.0 - 100.0 fl | EXTERNAL | | | | Testing performed at | | LAB | | | | [facility], [address] | | | | | | [place] | | | | | | [address] | | | | + + + + + + | MCH | 35.2 (H)Comment: Testing | 27.0 - 34.0 pg | EXTERNAL | | | | performed at [facility], [address] | | LAB | | | | [address], | | | | | | [place] [address] | | | | + + + + + + | MCHC | 33.2Comment: Testing | 32.0 - 35.5 | EXTERNAL | | | | performed at [facility], [address] | g/dL | LAB | | | | [address], | | | | | | [place] [address] | | | | + + + + + + | RDW-CV | 53.4 (H)Comment: Testing | 37 - 53 fl | EXTERNAL | | | | performed at [facility], [address] | | LAB | | | | [address], | | | | | | [place] [address] | | | | + + + + + + | Platelet | 216Comment: Testing | 150 - 400 K/uL | EXTERNAL | | | Count | performed at [facility], [address] | | LAB | | | Plasma | [address], | | | | | | [place] [address] | | | | + + + + + + | MPV | 10.5Comment: Testing | fl | EXTERNAL | | | | performed at [facility], [address] | | LAB | | | | [address], | | | | | | [place], [place] [address] | | | | + + + + + + | Differentia | MANUALComment: Testing | | EXTERNAL | | | l Type | performed at [facility], [address] | | LAB | | | | [address], | | | | | | [place], [place] [address] | | | | + + + + + + | Segmented | 35Comment: Testing | % | EXTERNAL | | | Neutrophils | performed at [facility], [address] | | LAB | | | Manual | [address], | | | | | | [place] [address] | | | | + + + + + + | % Bands | 1Comment: Testing | % | EXTERNAL | | | | performed at [facility], [address] | | LAB | | | | [address], | | | | | | [place] [address] | | | | + + + + + + | Lymphocytes | 44Comment: Testing | % | EXTERNAL | | | Manual | performed at [facility], [address] | | LAB | | | | [address], | | | | | | [place] [address] | | | | + + + + + + | Monocytes | 12Comment: Testing | % | EXTERNAL | | | Manual | performed at [facility], [address] | | LAB | | | | [address], | | | | | | [place] [address] | | | | + + + + + + | Eosinophils | 8Comment: Testing | % | EXTERNAL | | | Manual | performed at [facility], [address] | | LAB | | | | [address], | | | | | | [place] [address] | | | | + + + + + + | Absolute | 3.08Comment: Testing | 1.90 - 7.40 | EXTERNAL | | | Neutrophils | performed at [facility], [address] | K/uL | LAB | | | | [address], | | | | | | [place] [address] | | | | + + + + + + | Bands | 0.09Comment: Testing | 0.00 - 0.20 | EXTERNAL | | | Manual | performed at [facility], [address] | K/uL | LAB | | | | [address], | | | | | | [place] [address] | | | | + + + + + + | Absolute | 3.88Comment: Testing | 1.00 - 3.90 | EXTERNAL | | | Lymphocytes | performed at [facility], [address] | K/uL | LAB | | | | [address], | | | | | | [place] [address] | | | | + + + + + + | Absolute | 1.06 (H)Comment: Testing | 0.00 - 0.80 | EXTERNAL | | | Monocytes | performed at [facility], [address] | K/uL | LAB | | | | [address], | | | | | | [place] [address] | | | | + + + + + + | Absolute | 0.70 (H)Comment: Testing | 0.00 - 0.50 | EXTERNAL | | | Eosinophils | performed at [facility], [address] | K/uL | LAB | | | | [address], | | | | | | [place] [address] | | | | + + + + + + | RBC | NORMAL PLT MORPHComment: | | EXTERNAL | | | Morphology | NORMAL RBC MORPHTesting | | LAB | | | | performed at [facility], [address] | | | | | | [address], | | | | | | [place] [address] | | | | + + + [...] | | | | performed at [facility], [address] | | LAB | | | | [address], | | | | | | [place] [address] | | | | + + + [...] | | | | performed at [facility], [address] | | LAB | | | | [address], | | | | | | [place] [address] | | | | + + + [...] | | | | | [place] [address] | | | | + + + + + + | K | 4.0Comment: Testing | 3.5 - 4.9 | EXTERNAL | | | | performed at [facility], [address] | mmol/L | LAB | | | | [address] [place], | | | | | | [place] [address] | | | | + + + + + + | Cl | 102Comment: Testing | 99 - 109 mmol/L | EXTERNAL | | | | performed at [facility], [address] | | LAB | | | | [address] [place], | | | | | | [place] [address] | | | | + + + + + + | CO2 | 33 (H)Comment: Testing | 23 - 32 mmol/L | EXTERNAL | | | | performed at [facility], [address] | | LAB | | | | [address], | | | | | | [place] [address] | | | | + + + + + + | Anion Gap | 5Comment: Testing | 5 - 20 mmol/L | EXTERNAL | | | | performed at [facility], [address] | | LAB | | | | [address], | | | | | | [place] [address] | | | | + + + + + + | Glucose, | 105 (H)Comment: Testing | 65 - 99 mg/dL | EXTERNAL | | | Fasting | performed at [facility], [address] | | LAB | | | | [address], | | | | | | [place] [address] | | | | + + + + + + | BUN | 9Comment: Testing | 8 - 25 mg/dL | EXTERNAL | | | | performed at [facility], [address] | | LAB | | | | [address], | | | | | | [place] [address] | | | | + + + + + + | Creatinine | 0.82Comment: Testing | 0.50 - 1.00 | EXTERNAL | | | | performed at [facility], [address] | mg/dL | LAB | | | | [address], | | | | | | [place] [address] | | | | + + + + + + | BUN/Creatin | 11Comment: Testing | | EXTERNAL | | | ine Ratio | performed at [facility], [address] | | LAB | | | | [address], | | | | | | [place] [address] | | | | + + + + + + | Calcium | 8.5Comment: Testing | 8.5 - 10.5 | EXTERNAL | | | | performed at [facility], [address] | mg/dL | LAB | | | | [address] [place], | | | | | | [place] [address] | | | | + + + + + + | Protein, | 6.3Comment: Testing | 6.3 - 8.2 g/dL | EXTERNAL | | | Total | performed at [facility], [address] | | LAB | | | | [address], | | | | | | [place] [address] | | | | + + + + + + | Albumin | 2.8 (L)Comment: Testing | 3.3 - 4.8 g/dL | EXTERNAL | | | | performed at [facility], [address] | | LAB | | | | [address], | | | | | | [place] [address] | | | | + + + + + + | Globulin | 3.5Comment: Testing | 1.3 - 4.9 g/dL | EXTERNAL | | | | performed at [facility], [address] | | LAB | | | | [address], | | | | | | [place] [address] | | | | + + + + + + | A/G Ratio | 0.8 (L)Comment: Testing | 1.0 - 2.4 | EXTERNAL | | | | performed at [facility], [address] | | LAB | | | | [address], | | | | | | [place] [address] | | | | + + + + + + | Bilirubin | 0.5Comment: Testing | 0.1 - 1.5 mg/dL | EXTERNAL | | | Total | performed at [facility], [address] | | LAB | | | | [address], | | | | | | [place] [address] | | | | + + + + + + | ALP, | 102Comment: Testing | 35 - 115 U/L | EXTERNAL | | | External | performed at [facility], [address] | | LAB | | | | [address], | | | | | | [place] [address] | | | | + + + + + + | AST | 53 (H)Comment: Testing | 10 - 45 U/L | EXTERNAL | | | | performed at [facility], [address] | | LAB | | | | [address], | | | | | | [place] [address] | | | | + + + + + + | ALT | 21Comment: Testing | 10 - 65 U/L | EXTERNAL | | | | performed at [facility], [address] | | LAB | | | | [address], | | | | | | [place] [address] | | | | + + + [...] | | | | | at [facility], [address] | | | | | | [address] [facility], | | | | | | [place] [address] | | | | + + + [...] EXTERNAL | | | | performed at [facility];[address] | mmol/L | LAB | | | | [address];[place], [place] | | | | | | [address] | | | | + + + [...] EXTERNAL | | | | performed at [facility];[address] | | LAB | | | | [address] [place] | | | | | | [address] | | | | + + + [...] | | | | performed at [facility], [address] | [address] | LAB | | | | [address], | | | | | | [place] [address] | | | | + + + + + + | RED CELL | 2.78 (L)Comment: Testing | 3.70 - 5.10 | EXTERNAL | | | COUNT | performed at [facility], [address] | [address] | LAB | | | | [address], | | | | | | [place] [address] | | | | + + + + + + | Hgb | 9.7 (L)Comment: Testing | 11.3 - 15.5 | EXTERNAL | | | | performed at [facility], [address] | g/dL | LAB | | | | [address], | | | | | | [place] [address] | | | | + + + + + + | Hematocrit, | 29.6 (L)Comment: Testing | 34.0 - 46.0 % | EXTERNAL | | | POC | performed at [facility], [address] | | LAB | | | | [address], | | | | | | [place] [address] | | | | + + + + + + | MCV | 106.3 (H)Comment: | 80.0 - 100.0 fl | EXTERNAL | | | | Testing performed at | | LAB | | | | [facility], [address] | | | | | | [place] | | | | | | [address] | | | | + + + + + + | MCH | 34.8 (H)Comment: Testing | 27.0 - 34.0 pg | EXTERNAL | | | | performed at [facility], [address] | | LAB | | | | [address], | | | | | | [place] [address] | | | | + + + + + + | MCHC | 32.8Comment: Testing | 32.0 - 35.5 | EXTERNAL | | | | performed at [facility], [address] | g/dL | LAB | | | | [address], | | | | | | [place] [address] | | | | + + + + + + | RDW-CV | 53.8 (H)Comment: Testing | 37 - 53 fl | EXTERNAL | | | | performed at [facility], [address] | | LAB | | | | [address], | | | | | | [place] [address] | | | | + + + + + + | Platelet | 181Comment: Testing | 150 - 400 K/uL | EXTERNAL | | | Count | performed at [facility], [address] | | LAB | | | Plasma | [address], | | | | | | [place] [address] | | | | + + + + + + | MPV | 11.3Comment: Testing | fl | EXTERNAL | | | | performed at [facility], [address] | | LAB | | | | [address], | | | | | | [place] [address] | | | | + + + + + + | Differentia | MANUALComment: Testing | | EXTERNAL | | | l Type | performed at [facility], [address] | | LAB | | | | [address], | | | | | | [place] [address] | | | | + + + + + + | Segmented | 45Comment: Testing | % | EXTERNAL | | | Neutrophils | performed at [facility], [address] | | LAB | | | Manual | [address], | | | | | | [place] [address] | | | | + + + + + + | % Bands | 1Comment: Testing | % | EXTERNAL | | | | performed at [facility], [address] | | LAB | | | | [address], | | | | | | [place] [address] | | | | + + + + + + | Lymphocytes | 35Comment: Testing | % | EXTERNAL | | | Manual | performed at [facility], [address] | | LAB | | | | [address], | | | | | | [place], [place] [address] | | | | + + + + + + | Monocytes | 11Comment: Testing | % | EXTERNAL | | | Manual | performed at [facility], [address] | | LAB | | | | [address], | | | | | | [place] [address] | | | | + + + + + + | Eosinophils | 8Comment: Testing | % | EXTERNAL | | | Manual | performed at [facility], [address] | | LAB | | | | [address], | | | | | | [place] [address] | | | | + + + + + + | Absolute | 3.85Comment: Testing | 1.90 - 7.40 | EXTERNAL | | | Neutrophils | performed at [facility], [address] | K/[address] | LAB | | | | [address], | | | | | | [place] [address] | | | | + + + + + + | Bands | 0.09Comment: Testing | 0.00 - 0.20 | EXTERNAL | | | Manual | performed at [facility], [address] | K/uL | LAB | | | | [address], | | | | | | [place] [address] | | | | + + + + + + | Absolute | 3.01Comment: Testing | 1.00 - 3.90 | EXTERNAL | | | Lymphocytes | performed at [facility], [address] | K/[address]L | LAB | | | | [address], | | | | | | [place] [address] | | | | + + + + + + | Absolute | 0.95 (H)Comment: Testing | 0.00 - 0.80 | EXTERNAL | | | Monocytes | performed at [facility], [address] | [address] | LAB | | | | [address], | | | | | | [place] [address] | | | | + + + + + + | Absolute | 0.69 (H)Comment: Testing | 0.00 - 0.50 | EXTERNAL | | | Eosinophils | performed at [facility], [address] | [address] | LAB | | | | [address], | | | | | | [place] [address] | | | | + + + + + + | RBC | 2+Comment: MACRONORMAL | | EXTERNAL | | | Morphology | PLT MORPHTesting | | LAB | | | | performed at [facility], [address] | | | | | | [address], | | | | | | [place] [address] | | | | | | | [...] | | | | | [place] [address] | | | | + + + [...] | | | | performed at [facility], [address] | | LAB | | | | [address], | | | | | | [place] [address] | | | | + + + [...] | | | | | [place] [address] | | | | + + + + + + | K | 3.2 (L)Comment: Testing | 3.5 - 4.9 | EXTERNAL | | | | performed at [facility], [address] | mmol/L | LAB | | | | [address], | | | | | | [place] [address] | | | | + + + + + + | Cl | 103Comment: Testing | 99 - 109 mmol/L | EXTERNAL | | | | performed at [facility], [address] | | LATA | | | | [address], | | | | | | [place] [address] | | | | + + + + + + | CO2 | 31Comment: Testing | 23 - 32 mmol/L | EXTERNAL | | | | performed at [facility], [address] | | LAB | | | | [address], | | | | | | [place] [address] | | | | + + + + + + | Anion Gap | 7Comment: Testing | 5 - 20 mmol/L | EXTERNAL | | | | performed at [facility], [address] | | LAB | | | | [address], | | | | | | [place] [address] | | | | + + + + + + | Glucose, | 104 (H)Comment: Testing | 65 - 99 mg/dL | EXTERNAL | | | Fasting | performed at [facility], [address] | | LAB | | | | [address], | | | | | | [place] [address] | | | | + + + + + + | BUN | 10Comment: Testing | 8 - 25 mg/dL | EXTERNAL | | | | performed at [facility], [address] | | LAB | | | | [address], | | | | | | [place] [address] | | | | + + + + + + | Creatinine | 0.83Comment: Testing | 0.50 - 1.00 | EXTERNAL | | | | performed at [facility], [address] | mg/dL | LAB | | | | [address], | | | | | | [place] [address] | | | | + + + + + + | BUN/Creatin | 12Comment: Testing | | EXTERNAL | | | ine Ratio | performed at [facility], [address] | | LAB | | | | [address], | | | | | | [place] [address] | | | | + + + + + + | Calcium | 8.2 (L)Comment: Testing | 8.5 - 10.5 | EXTERNAL | | | | performed at [facility], [address] | mg/dL | LAB | | | | [address], | | | | | | [place] [address] | | | | + + + + + + | Protein, | 6.2 (L)Comment: Testing | 6.3 - 8.2 g/dL | EXTERNAL | | | Total | performed at [facility], [address] | | LAB | | | | [address], | | | | | | [place] [address] | | | | + + + + + + | Albumin | 2.7 (L)Comment: Testing | 3.3 - 4.8 g/dL | EXTERNAL | | | | performed at [facility], [address] | | LAB | | | | [address], | | | | | | [place] [address] | | | | + + + + + + | Globulin | 3.5Comment: Testing | 1.3 - 4.9 g/dL | EXTERNAL | | | | performed at [facility], [address] | | LAB | | | | [address], | | | | | | [place] [address] | | | | + + + + + + | A/G Ratio | 0.8 (L)Comment: Testing | 1.0 - 2.4 | EXTERNAL | | | | performed at [facility], [address] | | LAB | | | | [address], | | | | | | [place] [address] | | | | + + + + + + | Bilirubin | 0.5Comment: Testing | 0.1 - 1.5 mg/dL | EXTERNAL | | | Total | performed at [facility], [address] | | LAB | | | | [address], | | | | | | [place] [address] | | | | + + + + + + | ALP, | 98Comment: Testing | 35 - 115 U/L | EXTERNAL | | | External | performed at [facility], [address] | | LAB | | | | [address], | | | | | | [place] [address] | | | | + + + + + + | AST | 35Comment: Testing | 10 - 45 U/L | EXTERNAL | | | | performed at [facility], [address] | | LAB | | | | [address], | | | | | | [place] [address] | | | | + + + + + + | ALT | 15Comment: Testing | 10 - 65 U/L | EXTERNAL | | | | performed at [facility], [address] | | LAB | | | | [address], | | | | | | [place] [address] | | | | + + + [...] [address], | | | | | | [place] [address] | | | | + + + [...] | | | | performed at [facility], [address] | | LAB | | | | [address], | | | | | | [place] [address] | | | | + + + [...] | | | B-12 | performed at [facility], [address] | pg/mL | LAB | | | | [address], | | | | | | [place] [address] | | | | + + + [...] | | | | performed at [facility], [address] | K/uL | LAB | | | | [address], | | | | | | [place] [address] | | | | + + + + + + | RED CELL | 2.72 (L)Comment: Testing | 3.70 - 5.10 | EXTERNAL | | | COUNT | performed at [facility], [address] | [address] | LAB | | | | [address], | | | | | | [place] [address] | | | | + + + + + + | Hgb | 9.4 (L)Comment: Testing | 11.3 - 15.5 | EXTERNAL | | | | performed at [facility], [address] | g/dL | LAB | | | | [address], | | | | | | [place] [address] | | | | + + + + + + | Hematocrit, | 29.1 (L)Comment: Testing | 34.0 - 46.0 % | EXTERNAL | | | POC | performed at [facility], [address] | | LAB | | | | [address], | | | | | | [place] [address] | | | | + + + + + + | MCV | 107.3 (H)Comment: | 80.0 - 100.0 fl | EXTERNAL | | | | Testing performed at | | LAB | | | | [facility], [address] | | | | | | [place] | | | | | | [address] | | | | + + + + + + | MCH | 34.6 (H)Comment: Testing | 27.0 - 34.0 pg | EXTERNAL | | | | performed at [facility], [address] | | LAB | | | | [address], | | | | | | [place] [address] | | | | + + + + + + | MCHC | 32.2Comment: Testing | 32.0 - 35.5 | EXTERNAL | | | | performed at [facility], [address] | g/dL | LAB | | | | [address], | | | | | | [place] [address] | | | | + + + + + + | RDW-CV | 57.3 (H)Comment: Testing | 37 - 53 fl | EXTERNAL | | | | performed at [facility], [address] | | LAB | | | | [address], | | | | | | [place] [address] | | | | + + + + + + | Platelet | 174Comment: Testing | 150 - 400 K/uL | EXTERNAL | | | Count | performed at [facility], [address] | | LAB | | | Plasma | [address], | | | | | | [place] [address] | | | | + + + + + + | MPV | 10.9Comment: Testing | fl | EXTERNAL | | | | performed at [facility], [address] | | LAB | | | | [address], | | | | | | [place] [address] | | | | + + + + + + | Differentia | MANUALComment: Testing | | EXTERNAL | | | l Type | performed at [facility], [address] | | LAB | | | | [address], | | | | | | [place], [place] [address] | | | | + + + + + + | Segmented | 45Comment: Testing | % | EXTERNAL | | | Neutrophils | performed at [facility], [address] | | LAB | | | Manual | [address], | | | | | | [place], [place] [address] | | | | + + + + + + | % Bands | 1Comment: Testing | % | EXTERNAL | | | | performed at [facility], [address] | | LAB | | | | [address], | | | | | | [place], [place] [address] | | | | + + + + + + | Lymphocytes | 34Comment: Testing | % | EXTERNAL | | | Manual | performed at [facility], [address] | | LAB | | | | [address], | | | | | | [place] [address] | | | | + + + + + + | Monocytes | 11Comment: Testing | % | EXTERNAL | | | Manual | performed at [facility], [address] | | LAB | | | | [address], | | | | | | [place] [address] | | | | + + + + + + | Eosinophils | 9Comment: Testing | % | EXTERNAL | | | Manual | performed at [facility], [address] | | LAB | | | | [address], | | | | | | [place] [address] | | | | + + + + + + | Absolute | 3.77Comment: Testing | 1.90 - 7.40 | EXTERNAL | | | Neutrophils | performed at [facility], [address] | [address] | LAB | | | | [address], | | | | | | [place] [address] | | | | + + + + + + | Bands | 0.08Comment: Testing | 0.00 - 0.20 | EXTERNAL | | | Manual | performed at [facility], [address] | K/u[address] | LAB | | | | [address], | | | | | | [place] [address] | | | | + + + + + + | Absolute | 2.84Comment: Testing | 1.00 - 3.90 | EXTERNAL | | | Lymphocytes | performed at [facility], [address] | [address] | LAB | | | | [address], | | | | | | [place] [address] | | | | + + + + + + | Absolute | 0.92 (H)Comment: Testing | 0.00 - 0.80 | EXTERNAL | | | Monocytes | performed at [facility], [address] | [address] | LAB | | | | [address], | | | | | | [place] [address] | | | | + + + + + + | Absolute | 0.75 (H)Comment: Testing | 0.00 - 0.50 | EXTERNAL | | | Eosinophils | performed at [facility], [address] | [address] | LAB | | | | [address], | | | | | | [place] [address] | | | | + + + + + + | RBC | NORMAL PLT MORPHComment: | | EXTERNAL | | | Morphology | NORMAL RBC MORPHTesting | | LAB | | | | performed at [facility], [address] | | | | | | [address], | | | | | | [place] [address] | | | | + + + [...] | | | | performed at [facility], [address] | | LAB | | | | [address], | | | | | | [place] [address] | | | | + + + [...] | | | | | [place] [address] | | | | + + + [...] | | | | | [place] [address] | | | | + + + + + + | K | 3.8Comment: Testing | 3.5 - 4.9 | EXTERNAL | | | | performed at [facility], [address] | mmol/L | LAB | | | | [address], | | | | | | [place] [address] | | | | + + + + + + | Cl | 111 (H)Comment: Testing | 99 - 109 mmol/L | EXTERNAL | | | | performed at [facility], [address] | | LAB | | | | [address], | | | | | | [place] [address] | | | | + + + + + + | CO2 | 25Comment: Testing | 23 - 32 mmol/L | EXTERNAL | | | | performed at [facility], [address] | | LAB | | | | [address], | | | | | | [place] [address] | | | | + + + + + + | Anion Gap | 5Comment: Testing | 5 - 20 mmol/L | EXTERNAL | | | | performed at [facility], [address] | | LAB | | | | [address], | | | | | | [place] [address] | | | | + + + + + + | Glucose, | 112 (H)Comment: Testing | 65 - 99 mg/dL | EXTERNAL | | | Fasting | performed at [facility], [address] | | LAB | | | | [address], | | | | | | [place] [address] | | | | + + + + + + | BUN | 13Comment: Testing | 8 - 25 mg/dL | EXTERNAL | | | | performed at [facility], [address] | | LAB | | | | [address], | | | | | | [place] [address] | | | | + + + + + + | Creatinine | 0.74Comment: Testing | 0.50 - 1.00 | EXTERNAL | | | | performed at [facility], [address] | mg/dL | LAB | | | | [address], | | | | | | [place] [address] | | | | + + + + + + | BUN/Creatin | 18Comment: Testing | | EXTERNAL | | | ine Ratio | performed at [facility], [address] | | LAB | | | | [address], | | | | | | [place] [address] | | | | + + + + + + | Calcium | 8.0 (L)Comment: Testing | 8.5 - 10.5 | EXTERNAL | | | | performed at [facility], [address] | mg/dL | LAB | | | | [address], | | | | | | [place] [address] | | | | + + + + + + | Protein, | 5.9 (L)Comment: Testing | 6.3 - 8.2 g/dL | EXTERNAL | | | Total | performed at [facility], [address] | | LAB | | | | [address], | | | | | | [place] [address] | | | | + + + + + + | Albumin | 2.6 (L)Comment: Testing | 3.3 - 4.8 g/dL | EXTERNAL | | | | performed at [facility], [address] | | LAB | | | | [address], | | | | | | [place] [address] | | | | + + + + + + | Globulin | 3.3Comment: Testing | 1.3 - 4.9 g/dL | EXTERNAL | | | | performed at [facility], [address] | | LAB | | | | [address], | | | | | | [place] [address] | | | | + + + + + + | A/G Ratio | 0.8 (L)Comment: Testing | 1.0 - 2.4 | EXTERNAL | | | | performed at [facility], [address] | | LAB | | | | [address], | | | | | | [place] [address] | | | | + + + + + + | Bilirubin | 0.4Comment: Testing | 0.1 - 1.5 mg/dL | EXTERNAL | | | Total | performed at [facility], [address] | | LAB | | | | [address], | | | | | | [place] [address] | | | | + + + + + + | ALP, | 93Comment: Testing | 35 - 115 U/L | EXTERNAL | | | External | performed at [facility], [address] | | LAB | | | | [address], | | | | | | [place] [address] | | | | + + + + + + | AST | 23Comment: Testing | 10 - 45 U/L | EXTERNAL | | | | performed at [facility], [address] | | LAB | | | | [address], | | | | | | [place] [address] | | | | + + + + + + | ALT | 14Comment: Testing | 10 - 65 U/L | EXTERNAL | | | | performed at [facility], [address] | | LAB | | | | [address], | | | | | | [place] [address] | | | | + + + [...] | | | | | [place] [address] | | | | + + + [...] | | | | performed at [facility], [address] | K/uL | LAB | | | | [address], | | | | | | [place] [address] | | | | + + + + + + | RED CELL | 2.78 (L)Comment: Testing | 3.70 - 5.10 | EXTERNAL | | | COUNT | performed at [facility], [address] | M/uL | LAB | | | | [address], | | | | | | [place] [address] | | | | + + + + + + | Hgb | 9.7 (L)Comment: Testing | 11.3 - 15.5 | EXTERNAL | | | | performed at [facility], [address] | g/dL | LAB | | | | [address], | | | | | | [place] [address] | | | | + + + + + + | Hematocrit, | 29.9 (L)Comment: Testing | 34.0 - 46.0 % | EXTERNAL | | | POC | performed at [facility], [address] | | LAB | | | | [address], | | | | | | [place] [address] | | | | + + + + + + | MCV | 107.5 (H)Comment: | 80.0 - 100.0 fl | EXTERNAL | | | | Testing performed at | | LAB | | | | [facility], [address] [facility] | | | | | | [place] | | | | | | [address] | | | | + + + + + + | MCH | 34.9 (H)Comment: Testing | 27.0 - 34.0 pg | EXTERNAL | | | | performed at [facility], [address] | | LAB | | | | [address], | | | | | | [place] [address] | | | | + + + + + + | MCHC | 32.5Comment: Testing | 32.0 - 35.5 | EXTERNAL | | | | performed at [facility], [address] | g/dL | LAB | | | | [address], | | | | | | [place] [address] | | | | + + + + + + | RDW-CV | 57.3 (H)Comment: Testing | 37 - 53 fl | EXTERNAL | | | | performed at [facility], [address] | | LAB | | | | [address], | | | | | | [place] [address] | | | | + + + + + + | Platelet | 162Comment: Testing | 150 - 400 K/uL | EXTERNAL | | | Count | performed at [facility], [address] | | LAB | | | Plasma | [address], | | | | | | [place] [address] | | | | + + + + + + | MPV | 11.6Comment: Testing | fl | EXTERNAL | | | | performed at [facility], [address] | | LAB | | | | [address], | | | | | | [place], [place] [address] | | | | + + + + + + | Differentia | MANUALComment: Testing | | EXTERNAL | | | l Type | performed at [facility], [address] | | LAB | | | | [address], | | | | | | [place], [place] [address] | | | | + + + + + + | Segmented | 31Comment: Testing | % | EXTERNAL | | | Neutrophils | performed at [facility], [address] | | LAB | | | Manual | [address], | | | | | | [place], [place] [address] | | | | + + + + + + | Lymphocytes | 52Comment: Testing | % | EXTERNAL | | | Manual | performed at [facility], [address] | | LAB | | | | [address], | | | | | | [place] [address] | | | | + + + + + + | Monocytes | 11Comment: Testing | % | EXTERNAL | | | Manual | performed at [facility], [address] | | LAB | | | | [address], | | | | | | [place] [address] | | | | + + + + + + | Eosinophils | 6Comment: Testing | % | EXTERNAL | | | Manual | performed at [facility], [address] | | LAB | | | | [address], | | | | | | [place] [address] | | | | + + + + + + | Absolute | 3.19Comment: Testing | 1.90 - 7.40 | EXTERNAL | | | Neutrophils | performed at [facility], [address] | K/uL | LAB | | | | [address], | | | | | | [place] [address] | | | | + + + + + + | Absolute | 5.36 (H)Comment: Testing | 1.00 - 3.90 | EXTERNAL | | | Lymphocytes | performed at [facility], [address] | K/uL | LAB | | | | [address], | | | | | | [place] [address] | | | | + + + + + + | Absolute | 1.13 (H)Comment: Testing | 0.00 - 0.80 | EXTERNAL | | | Monocytes | performed at [facility], [address] | K/uL | LAB | | | | [address], | | | | | | [place] [address] | | | | + + + + + + | Absolute | 0.62 (H)Comment: Testing | 0.00 - 0.50 | EXTERNAL | | | Eosinophils | performed at [facility], [address] | K/uL | LAB | | | | [address], | | | | | | [place] [address] | | | | + + + + + + | RBC | 2+Comment: MACRONORMAL | | EXTERNAL | | | Morphology | PLT MORPHTesting | | LAB | | | | performed at [facility], [address] | | | | | | [address], | | | | | | [place] [address] | | | | | | | [...] | | | | performed at [facility], [address] | | LAB | | | | [address], | | | | | | [place] [address] | | | | + + [...] | | | | performed at [facility], [address] | | LAB | | | | [address], | | | | | | [place] [address] | | | | + + + [...] | | | | | [place] [address] | | | | + + + + + + | K | 4.2Comment: Testing | 3.5 - 4.9 | EXTERNAL | | | | performed at [facility], [address] | mmol/L | LAB | | | | [address], | | | | | | [place] [address] | | | | + + + + + + | Cl | 112 (H)Comment: Testing | 99 - 109 mmol/L | EXTERNAL | | | | performed at [facility], [address] | | LAB | | | | [address], | | | | | | [place] [address] | | | | + + + + + + | CO2 | 27Comment: Testing | 23 - 32 mmol/L | EXTERNAL | | | | performed at [facility], [address] | | LAB | | | | [address], | | | | | | [place] [address] | | | | + + + + + + | Anion Gap | 4 (L)Comment: Testing | 5 - 20 mmol/L | EXTERNAL | | | | performed at [facility], [address] | | LAB | | | | [address], | | | | | | [place] [address] | | | | + + + + + + | Glucose, | 94Comment: Testing | 65 - 99 mg/dL | EXTERNAL | | | Fasting | performed at [facility], [address] | | LAB | | | | [address], | | | | | | [place] [address] | | | | + + + + + + | BUN | 19Comment: Testing | 8 - 25 mg/dL | EXTERNAL | | | | performed at [facility], [address] | | LAB | | | | [address], | | | | | | [place] [address] | | | | + + + + + + | Creatinine | 1.01 (H)Comment: Testing | 0.50 - 1.00 | EXTERNAL | | | | performed at [facility], [address] | mg/dL | LAB | | | | [address], | | | | | | [place] [address] | | | | + + + + + + | BUN/Creatin | 19Comment: Testing | | EXTERNAL | | | ine Ratio | performed at [facility], [address] | | LAB | | | | [address], | | | | | | [place] [address] | | | | + + + + + + | Calcium | 8.1 (L)Comment: Testing | 8.5 - 10.5 | EXTERNAL | | | | performed at [facility], [address] | mg/dL | LAB | | | | [address], | | | | | | [place] [address] | | | | + + + + + + | Protein, | 5.9 (L)Comment: Testing | 6.3 - 8.2 g/dL | EXTERNAL | | | Total | performed at [facility], [address] | | LAB | | | | [address], | | | | | | [place] [address] | | | | + + + + + + | Albumin | 2.5 (L)Comment: Testing | 3.3 - 4.8 g/dL | EXTERNAL | | | | performed at [facility], [address] | | LAB | | | | [address], | | | | | | [place] [address] | | | | + + + [...] | | | | | [place] [address] | | | | + + + + + + | Bilirubin | 0.3Comment: Testing | 0.1 - 1.5 mg/dL | EXTERNAL | | | Total | performed at [facility], [address] | | LAB | | | | [address], | | | | | | [place] [address] | | | | + + + + + + | ALP, | 98Comment: Testing | 35 - 115 U/L | EXTERNAL | | | External | performed at [facility], [address] | | LAB | | | | [address], | | | | | | [place] [address] | | | | + + + + + + | AST | 24Comment: Testing | 10 - 45 U/L | EXTERNAL | | | | performed at [facility], [address] | | LAB | | | | [address], | | | | | | [place] [address] | | | | + + + + + + | ALT | 14Comment: Testing | 10 - 65 U/L | EXTERNAL | | | | performed at [facility], [address] | | LAB | | | | [facility], | | | | | | [place] [address] | | | | + + + [...] W | | | | | | [facility], | | | | | | [place] [address] | | | | + + + [...] [place] | | | | | | [address] | | | | + + +---- + + + | RED CELL | 2.93 (L)Comment: Testing | 3.7 0 - 5.10 | EXTERNAL | | | COUNT | performed at [facility], [address] | M/u L | LAB | | | | [address], | | | | | | [place] [address] | | | | + + +---- + + + | Hgb | 10.2 (L)Comment: Testing | 11. 3 - 15.5 | EXTERNAL | | | | performed at [facility], [address] | g/d L | LAB | | | | [address], | | | | | | [place] [address] | | | | + + +---- + + + | Hematocrit, | 31.6 (L)Comment: Testing | 34. 0 - 46.0 % | EXTERNAL | | | POC | performed at [facility], [address] | | LAB | | | | [address], | | | | | | [place] [address] | | | | + + +---- + + + | MCV | 107.8 (H)Comment: | 80. 0 - 100.0 fl | EXTERNAL | | | | Testing performed at | | LAB | | | | [facility], [address] | | | | | | [place] | | | | | | [address] | | | | + + +---- + + + | MCH | 34.8 (H)Comment: Testing | 27. 0 - 34.0 pg | EXTERNAL | | | | performed at [facility], [address] | | LAB | | | | [address], | | | | | | [place] [address] | | | | + + +---- + + + | MCHC | 32.3Comment: Testing | 32. 0 - 35.5 | EXTERNAL | | | | performed at [facility], [address] | g/d L | LAB | | | | [address], | | | | | | [place] [address] | | | | + + +---- + + + | RDW-CV | 57.3 (H)Comment: Testing | 37 - 53 fl | EXTERNAL | | | | performed at [facility], [address] | | LAB | | | | [address], | | | | | | [place] [address] | | | | + + +---- + + + | Platelet | 146 (L)Comment: Testing | 150 - 400 K/uL | EXTERNAL | | | Count | performed at [facility], [address] | | LAB | | | Plasma | [address], | | | | | | [place] [address] | | | | + + +---- + + + | MPV | 11.2Comment: Testing | fl | EXTERNAL | | | | performed at [facility], [address] | | LAB | | | | [address], | | | | | | [place] [address] | | | | + + +---- + + + | Differentia | MANUALComment: Testing | | EXTERNAL | | | l Type | performed at [facility], [address] | | LAB | | | | [address], | | | | | | [place] [address] | | | | + + +---- + + + | Segmented | 58Comment: Testing | % | EXTERNAL | | | Neutrophils | performed at [facility], [address] | | LAB | | | Manual | [address], | | | | | | [place] [address] | | | | + + +---- + + + | % Bands | 20Comment: Testing | % | EXTERNAL | | | | performed at [facility], [address] | | LAB | | | | [address], | | | | | | [place] [address] | | | | + + +---- + + + | Lymphocytes | 13Comment: Testing | % | EXTERNAL | | | Manual | performed at [facility], [address] | | LAB | | | | [address], | | | | | | [place] [address] | | | | + + +---- + + + | Monocytes | 7Comment: Testing | % | EXTERNAL | | | Manual | performed at [facility], [address] | | LAB | | | | [address], | | | | | | [place] [address] | | | | + + +---- + + + | Eosinophils | 2Comment: Testing | % | EXTERNAL | | | Manual | performed at [facility], [address] | | LAB | | | | [address], | | | | | | [place] [address] | | | | + + +---- + + + | Absolute | 9.23 (H)Comment: Testing | 1.9 0 - 7.40 | EXTERNAL | | | Neutrophils | performed at [facility], [address] | K/u L | LAB | | | | [address], | | | | | | [place] [address] | | | | + + +---- + + + | Bands | 3.18 (H)Comment: Testing | 0.0 0 - 0.20 | EXTERNAL | | | Manual | performed at [facility], [address] | K/u L | LAB | | | | [address], | | | | | | [place] [address] | | | | + + +---- + + + | Absolute | 2.07Comment: Testing | 1.0 0 - 3.90 | EXTERNAL | | | Lymphocytes | performed at [facility], [address] | K/u L | LAB | | | | [address], | | | | | | [place] [address] | | | | + + +---- + + + | Absolute | 1.11 (H)Comment: Testing | 0.0 0 - 0.80 | EXTERNAL | | | Monocytes | performed at [facility], [address] | K/u L | LAB | | | | [address], | | | | | | [place] [address] | | | | + + +---- + + + | Absolute | 0.32Comment: Testing | 0.0 0 - 0.50 | EXTERNAL | | | Eosinophils | performed at [facility], [address] | K/u L | LAB | | | | [address], | | | | | | [place] [address] | | | | + + +---- + + + | RBC | 2+Comment: | | EXTERNAL | | | Morphology | MACRO1+ANISONORMAL PLT | | LAB | | | | MORPHTesting performed | | | | | | at [facility], [address] | | | | | | [facility], | | | | | | [place] [address] | | | | | |Testing performed at [facility], [address] [place] [address] | | | | | | | [...] | | | | performed at [facility], [address] | | LAB | | | | [address], | | | | | | [place] [address] | | | | + + + [...] | | | | | [place] [address] | | | | + + + [...] | | | | | [place] [address] | | | | + + + + + + | K | 3.9Comment: Testing | 3.5 - 4.9 | EXTERNAL | | | | performed at [facility], [address] | mmol/L | LAB | | | | [address], | | | | | | [place] [address] | | | | + + + + + + | Cl | 109Comment: Testing | 99 - 109 mmol/L | EXTERNAL | | | | performed at [facility], [address] | | LAB | | | | [address], | | | | | | [place] [address] | | | | + + + + + + | CO2 | 24Comment: Testing | 23 - 32 mmol/L | EXTERNAL | | | | performed at [facility], [address] | | LAB | | | | [address], | | | | | | [place] [address] | | | | + + + + + + | Anion Gap | 8Comment: Testing | 5 - 20 mmol/L | EXTERNAL | | | | performed at [facility], [address] | | LAB | | | | [address], | | | | | | [place] [address] | | | | + + + + + + | Glucose, | 98Comment: Testing | 65 - 99 mg/dL | EXTERNAL | | | Fasting | performed at [facility], [address] | | LAB | | | | [address], | | | | | | [place] [address] | | | | + + + + + + | BUN | 25Comment: Testing | 8 - 25 mg/dL | EXTERNAL | | | | performed at [facility], [address] | | LAB | | | | [address], | | | | | | [place] [address] | | | | + + + + + + | Creatinine | 1.39 (H)Comment: Testing | 0.50 - 1.00 | EXTERNAL | | | | performed at [facility], [address] | mg/dL | LAB | | | | [address], | | | | | | [place] [address] | | | | + + + + + + | BUN/Creatin | 18Comment: Testing | | EXTERNAL | | | ine Ratio | performed at [facility], [address] | | LAB | | | | [address], | | | | | | [place] [address] | | | | + + + + + + | Calcium | 8.2 (L)Comment: Testing | 8.5 - 10.5 | EXTERNAL | | | | performed at [facility], [address] | mg/dL | LAB | | | | [address], | | | | | | [place] [address] | | | | + + + + + + | Protein, | 6.1 (L)Comment: Testing | 6.3 - 8.2 g/dL | EXTERNAL | | | Total | performed at [facility], [address] | | LAB | | | | [address], | | | | | | [place] [address] | | | | + + + + + + | Albumin | 2.4 (L)Comment: Testing | 3.3 - 4.8 g/dL | EXTERNAL | | | | performed at [facility], [address] | | LAB | | | | [address], | | | | | | [place] [address] | | | | + + + + + + | Globulin | 3.7Comment: Testing | 1.3 - 4.9 g/dL | EXTERNAL | | | | performed at [facility], [address] | | LAB | | | | [address], | | | | | | [place] [address] | | | | + + + + + + | A/G Ratio | 0.6 (L)Comment: Testing | 1.0 - 2.4 | EXTERNAL | | | | performed at [facility], [address] | | LAB | | | | [address], | | | | | | [place] [address] | | | | + + + + + + | Bilirubin | 0.4Comment: Testing | 0.1 - 1.5 mg/dL | EXTERNAL | | | Total | performed at [facility], [address] | | LAB | | | | [address], | | | | | | [place] [address] | | | | + + + + + + | ALP, | 111Comment: Testing | 35 - 115 U/L | EXTERNAL | | | External | performed at [facility], [address] | | LAB | | | | [address], | | | | | | [place] [address] | | | | + + + + + + | AST | 29Comment: Testing | 10 - 45 U/L | EXTERNAL | | | | performed at [facility], [address] | | LAB | | | | [address], | | | | | | [place] [address] | | | | + + + + + + | ALT | 14Comment: Testing | 10 - 65 U/L | EXTERNAL | | | | performed at [facility], [address] | | LAB | | | | [address], | | | | | | [place] [address] | | | | + + + [...] | | | | | at [facility], [address] | | | | | | [address], | | | | | | [place] [address] | | | | + + + [...] | | | | [facility], [address] [facility] | | | | | | [place] | | | | | | [address] | | | | + + + + + + | RED CELL | 3.12 (L)Comment: Testing | 3.70 - 5.10 | EXTERNAL | | | COUNT | performed at [facility], [address] | M/uL | LAB | | | | [address], | | | | | | [place] [address] | | | | + + + + + + | Hgb | 10.8 (L)Comment: Testing | 11.3 - 15.5 | EXTERNAL | | | | performed at [facility], [address] | g/dL | LAB | | | | [address], | | | | | | [place] [address] | | | | + + + + + + | Hematocrit, | 33.7 (L)Comment: Testing | 34.0 - 46.0 % | EXTERNAL | | | POC | performed at [facility], [address] | | LAB | | | | [address], | | | | | | [place] [address] | | | | + + + + + + | MCV | 108.0 (H)Comment: | 80.0 - 100.0 fl | EXTERNAL | | | | Testing performed at | | LAB | | | | [facility], [address] | | | | | | [place] | | | | | | [address] | | | | + + + + + + | MCH | 34.7 (H)Comment: Testing | 27.0 - 34.0 pg | EXTERNAL | | | | performed at [facility], [address] | | LAB | | | | [address], | | | | | | [place] [address] | | | | + + + + + + | MCHC | 32.1Comment: Testing | 32.0 - 35.5 | EXTERNAL | | | | performed at [facility], [address] | g/dL | LAB | | | | [address], | | | | | | [place] [address] | | | | + + + + + + | RDW-CV | 55.6 (H)Comment: Testing | 37 - 53 fl | EXTERNAL | | | | performed at [facility], [address] | | LAB | | | | [address], | | | | | | [place] [address] | | | | + + + + + + | Platelet | 153Comment: Testing | 150 - 400 K/uL | EXTERNAL | | | Count | performed at [facility], [address] | | LAB | | | Plasma | [address], | | | | | | [place] [address] | | | | + + + + + + | MPV | 11.2Comment: Testing | fl | EXTERNAL | | | | performed at [facility], [address] | | LAB | | | | [address], | | | | | | [place], [place] [address] | | | | + + + + + + | Differentia | MANUALComment: Testing | | EXTERNAL | | | l Type | performed at [facility], [address] | | LAB | | | | [address], | | | | | | [place], [place] [address] | | | | + + + + + + | Segmented | 64Comment: Testing | % | EXTERNAL | | | Neutrophils | performed at [facility], [address] | | LAB | | | Manual | [address], | | | | | | [place] [address] | | | | + + + + + + | % Bands | 15Comment: Testing | % | EXTERNAL | | | | performed at [facility], [address] | | LAB | | | | [address], | | | | | | [place] [address] | | | | + + + + + + | % | 2Comment: Testing | % | EXTERNAL | | | Metamyelocy | performed at [facility], [address] | | LAB | | | irma | [address], | | | | | | [place] [address] | | | | + + + + + + | Lymphocytes | 12Comment: Testing | % | EXTERNAL | | | Manual | performed at [facility], [address] | | LAB | | | | [address], | | | | | | [place] [address] | | | | + + + + + + | Monocytes | 6Comment: Testing | % | EXTERNAL | | | Manual | performed at [facility], [address] | | LAB | | | | [address], | | | | | | [place] [address] | | | | + + + + + + | Eosinophils | 1Comment: Testing | % | EXTERNAL | | | Manual | performed at [facility], [address] | | LAB | | | | [address], | | | | | | [place] [address] | | | | + + + + + + | Absolute | 11.48 (H)Comment: | 1.90 - 7.40 | EXTERNAL | | | Neutrophils | Testing performed at | K/uL | LAB | | | | [facility] [address] [facility] | | | | | | [place] | | | | | | [address] | | | | + + + + + + | Bands | 2.69 (H)Comment: Testing | 0.00 - 0.20 | EXTERNAL | | | Manual | performed at [facility], [address] | K/uL | LAB | | | | [address], | | | | | | [place] [address] | | | | + + + + + + | Absolute | 0.36 (H)Comment: Testing | K/uL | EXTERNAL | | | Metamyelocy | performed at [facility], [address] | | LAB | | | [address] | [address], | | | | | | [place] [address] | | | | + + + + + + | Absolute | 2.15Comment: Testing | 1.00 - 3.90 | EXTERNAL | | | Lymphocytes | performed at [facility], [address] | K/uL | LAB | | | | [address], | | | | | | [place] [address] | | | | + + + + + + | Absolute | 1.08 (H)Comment: Testing | 0.00 - 0.80 | EXTERNAL | | | Monocytes | performed at [facility], [address] | K/uL | LAB | | | | [address], | | | | | | [place] [address] | | | | + + + + + + | Absolute | 0.18Comment: Testing | 0.00 - 0.50 | EXTERNAL | | | Eosinophils | performed at [facility], [address] | K/uL | LAB | | | | [address], | | | | | | [place] [address] | | | | + + + + + + | RBC | 2+Comment: MACRONORMAL | | EXTERNAL | | | Morphology | PLT MORPHTesting | | LAB | | | | performed at [facility], [address] | | | | | | [address], | | | | | | [place] [address] | | | | | | | [...] EXTERNAL | | | | performed at [facility];[address] | mmol/L | LAB | | | | [address];[place] | | | | | | [address] | | | | + + + + + + | K | 3.8Comment: Testing | 3.5 - 4.9 | EXTERNAL | | | | performed at [facility];[address] | mmol/L | LAB | | | | [address];[place] | | | | | | [address] | | | | + + + + + + | Cl | 107Comment: Testing | 99 - 109 mmol/L | EXTERNAL | | | | performed at [facility];[address] | | LAB | | | | [address];[place] | | | | | | [address] | | | | + + + + + + | CO2 | 26Comment: Testing | 23 - 32 mmol/L | EXTERNAL | | | | performed at [facility];[address] | | LAB | | | | [address];[place] | | | | | | [address] | | | | + + + + + + | Anion Gap | 12Comment: Testing | 5 - 20 mmol/L | EXTERNAL | | | | performed at [facility];[address] | | LAB | | | | [address];[place] | | | | | | [address] | | | | + + + + + + | Glucose, | 127 (H)Comment: Testing | 65 - 99 mg/dL | EXTERNAL | | | Fasting | performed at [facility];[address] | | LAB | | | | [address];[place] | | | | | | [address] | | | | + + + + + + | BUN | 28 (H)Comment: Testing | 8 - 25 mg/dL | EXTERNAL | | | | performed at [facility];[address] | | LAB | | | | [address];[place] | | | | | | [address] | | | | + + + + + + | Creatinine | 1.8 (H)Comment: Testing | 0.50 - 1.00 | EXTERNAL | | | | performed at [facility];[address] | mg/dL | LAB | | | | [address];[place] | | | | | | [address] | | | | + + + + + + | BUN/Creatin | 16Comment: Testing | | EXTERNAL | | | ine Ratio | performed at [facility];[address] | | LAB | | | | [address];[place] | | | | | | [address] | | | | + + + + + + | Calcium | 7.6 (L)Comment: Testing | 8.5 - 10.5 | EXTERNAL | | | | performed at [facility];888 | mg/dL | LAB | | | | [address];[place] | | | | | | [address] | | | | + + + [...] | | | | | | at [facility];[address];[place] [address] | | | | + + + [...] | | | | | | at [facility];[address] [place] [address] | | | | | | [facility];[place] [address] | | | | + + + [...] LAB | | | | [facility], [address] [facility] | | | | | | [place] | | | | | | [address] | | | | + + +---- + + + | RED CELL | 3.07 (L)Comment: Testing | 3.7 0 - 5.10 | EXTERNAL | | | COUNT | performed at [facility], [address] | M/u L | LAB | | | | [address], | | | | | | [place] [address] | | | | + + +---- + + + | Hgb | 10.8 (L)Comment: Testing | 11. 3 - 15.5 | EXTERNAL | | | | performed at [facility], [address] | g/d L | LAB | | | | [address], | | | | | | [place] [address] | | | | + + +---- + + + | Hematocrit, | 32.7 (L)Comment: Testing | 34. 0 - 46.0 % | EXTERNAL | | | POC | performed at [facility], [address] | | LAB | | | | [address], | | | | | | [place] [address] | | | | + + +---- + + + | MCV | 106.4 (H)Comment: | 80. 0 - 100.0 fl | EXTERNAL | | | | Testing performed at | | LAB | | | | [facility], [address] [facility] | | | | | | [place] | | | | | | [address] | | | | + + +---- + + + | MCH | 35.1 (H)Comment: Testing | 27. 0 - 34.0 pg | EXTERNAL | | | | performed at [facility], [address] | | LAB | | | | [address], | | | | | | [place] [address] | | | | + + +---- + + + | MCHC | 33.0Comment: Testing | 32. 0 - 35.5 | EXTERNAL | | | | performed at [facility], [address] | g/d L | LAB | | | | [address], | | | | | | [place] [address] | | | | + + +---- + + + | RDW-CV | 56.0 (H)Comment: Testing | 37 - 53 fl | EXTERNAL | | | | performed at [facility], [address] | | LAB | | | | [address], | | | | | | [place] [address] | | | | + + +---- + + + | Platelet | 151Comment: Testing | 150 - 400 K/uL | EXTERNAL | | | Count | performed at [facility], [address] | | LAB | | | Plasma | [address], | | | | | | [place] [address] | | | | + + +---- + + + | MPV | 11.7Comment: Testing | fl | EXTERNAL | | | | performed at [facility], [address] | | LAB | | | | [address], | | | | | | [place] [address] | | | | + + +---- + + + | Differentia | MANUALComment: Testing | | EXTERNAL | | | l Type | performed at [facility], [address] | | LAB | | | | [address], | | | | | | [place] [address] | | | | + + +---- + + + | Segmented | 57Comment: Testing | % | EXTERNAL | | | Neutrophils | performed at [facility], [address] | | LAB | | | Manual | [address], | | | | | | [place] [address] | | | | + + +---- + + + | % Bands | 26Comment: Testing | % | EXTERNAL | | | | performed at [facility], [address] | | LAB | | | | [address], | | | | | | [place] [address] | | | | + + +---- + + + | % | 4Comment: Testing | % | EXTERNAL | | | Metamyelocy | performed at [facility], [address] | | LAB | | | imra | [address], | | | | | | [place] [address] | | | | + + +---- + + + | Lymphocytes | 9Comment: Testing | % | EXTERNAL | | | Manual | performed at [facility], [address] | | LAB | | | | [address], | | | | | | [place] [address] | | | | + + +---- + + + | Monocytes | 4Comment: Testing | % | EXTERNAL | | | Manual | performed at [facility], [address] | | LAB | | | | [address], | | | | | | [place] [address] | | | | + + +---- + + + | Absolute | 10.53 (H)Comment: | 1.9 0 - 7.40 | EXTERNAL | | | Neutrophils | Testing performed at | K/u L | LAB | | | | [facility], [address] | | | | | | [place] | | | | | | [address] | | | | + + +---- + + + | Bands | 4.80 (H)Comment: Testing | 0.0 0 - 0.20 | EXTERNAL | | | Manual | performed at [facility], [address] | K/u L | LAB | | | | [address], | | | | | | [place] [address] | | | | + + +---- + + + | Absolute | 0.74 (H)Comment: Testing | K/u L | EXTERNAL | | | Metamyelocy | performed at [facility], [address] | | LAB | | | [address]ma | [address], | | | | | | [place] [address] | | | | + + +---- + + + | Absolute | 1.66Comment: Testing | 1.0 0 - 3.90 | EXTERNAL | | | Lymphocytes | performed at [facility], [address] | K/u L | LAB | | | | [address], | | | | | | [place] [address] | | | | + + +---- + + + | Absolute | 0.74Comment: Testing | 0.0 0 - 0.80 | EXTERNAL | | | Monocytes | performed at [facility], [address] | K/u L | LAB | | | | [address], | | | | | | [place] [address] | | | | + + +---- + + + | RBC | 2+Comment: | | EXTERNAL | | | Morphology | MACRO1+ANISONORMAL PLT | | LAB | | | | MORPHTesting performed | | | | | | at [facility], [address] | | | | | | [facility], | | | | | | [place] [address] | | | | | |Testing performed at [facility], [address] [facility], [place] [address] | | | | | | | [...] EXTERNAL | | | | performed at [facility];[address] | | LAB | | | | [address];[place], [place] | | | | | | [address] | | | | + + + [...] | | | | | performed at [facility];[address] | | | | | | [address];[place] | | | | | | [address] | | | | + + + [...] EXTERNAL | | | | performed at [facility];888 | mmol/L | LAB | | | | [address];[place], [place] | | | | | | [address] | | | | + + + [...] EXTERNAL | | | | performed at [facility];888 | mmol/L | LAB | | | | [address];[place] | | | | | | [address] | | | | + + + + + + | K | 4.4Comment: SPECIMEN | 3.5 - 4.9 | EXTERNAL | | | | SLIGHTLY | mmol/L | LAB | | | | HEMOLYZEDTesting | | | | | | performed at [facility];[address] | | | | | | [address];[place] | | | | | | [address] | | | | + + + + + + | Cl | 106Comment: Testing | 99 - 109 mmol/L | EXTERNAL | | | | performed at [facility];[address] | | LAB | | | | [address];[place] | | | | | | [address] | | | | + + + + + + | CO2 | 24Comment: Testing | 23 - 32 mmol/L | EXTERNAL | | | | performed at [facility];[address] | | LAB | | | | [address];[place] | | | | | | [address] | | | | + + + + + + | Anion Gap | 12Comment: Testing | 5 - 20 mmol/L | EXTERNAL | | | | performed at [facility];[address] | | LAB | | | | [address];[place] | | | | | | [address] | | | | + + + + + + | Glucose, | 103 (H)Comment: Testing | 65 - 99 mg/dL | EXTERNAL | | | Fasting | performed at [facility];[address] | | LAB | | | | [address];[place] | | | | | | [address] | | | | + + + + + + | BUN | 22Comment: Testing | 8 - 25 mg/dL | EXTERNAL | | | | performed at [facility];[address] | | LAB | | | | [address];[place] | | | | | | [address] | | | | + + + + + + | Creatinine | 1.9 (H)Comment: Testing | 0.50 - 1.00 | EXTERNAL | | | | performed at [facility];888 | mg/dL | LAB | | | | [address];[place] | | | | | | [address] | | | | + + + + + + | BUN/Creatin | 12Comment: Testing | | EXTERNAL | | | ine Ratio | performed at [facility];[address] | | LAB | | | | [address];[place] | | | | | | [address] | | | | + + + + + + | Calcium | 7.4 (L)Comment: Testing | 8.5 - 10.5 | EXTERNAL | | | | performed at [facility];888 | mg/dL | LAB | | | | [address];[place] | | | | | | [address] | | | | + + + + + + | Protein, | 6.5Comment: Testing | 6.3 - 8.2 g/dL | EXTERNAL | | | Total | performed at [facility];[address] | | LAB | | | | [address];[place] | | | | | | [address] | | | | + + + + + + | Albumin | 2.2 (L)Comment: Testing | 3.3 - 4.8 g/dL | EXTERNAL | | | | performed at [facility];[address] | | LAB | | | | [address];[place] | | | | | | [address] | | | | + + + + + + | Globulin | 4.4Comment: Testing | 1.3 - 4.9 g/dL | EXTERNAL | | | | performed at [facility];[address] | | LAB | | | | [address];[place] | | | | | | [address] | | | | + + + + + + | A/G Ratio | 0.5 (L)Comment: Testing | 1.0 - 2.4 | EXTERNAL | | | | performed at [facility];[address] | | LAB | | | | [address];[place] | | | | | | [address] | | | | + + + + + + | Bilirubin | 0.5Comment: Testing | 0.1 - 1.5 mg/dL | EXTERNAL | | | Total | performed at [facility];[address] | | LAB | | | | [address];[place] | | | | | | [address] | | | | + + + + + + | ALP, | 148 (H)Comment: Testing | 35 - 115 U/L | EXTERNAL | | | External | performed at [facility];[address] | | LAB | | | | [address];[place] | | | | | | [address] | | | | + + + + + + | AST | 41Comment: SPECIMEN | 10 - 45 U/L | EXTERNAL | | | | SLIGHTLY | | LAB | | | | HEMOLYZEDTesting | | | | | | performed at [facility];[address] | | | | | | [address];[place] | | | | | | [address] | | | | + + + + + + | ALT | 23Comment: Testing | 10 - 65 U/L | EXTERNAL | | | | performed at [facility];[address] | | LAB | | | | [address];[place] | | | | | | [address] | | | | + + + [...] | | | | | | at [facility];[address] | | | | | | [address];[place] [address] | | | | + + + [...] WORKUP | | | Testing performed at [facility], [address], [place] | | | [address] | | + + + + +---------+ [...] | | | | performed at [facility], [address] | | LAB | | | | [address], | | | | | | [place] [address] | | | | + + + + + + | Clarity | CLOUDYComment: Testing | | EXTERNAL | | | | performed at [facility], [address] | | LAB | | | | [address], | | | | | | [place] [address] | | | | + + + + + + | Specific | 1.015Comment: Testing | 1.002 - 1.030 | EXTERNAL | | | [place] | performed at [facility], [address] | | LAB | | | | [address], | | | | | | [place] [address] | | | | + + + + + + | Leukocyte | SMALL (A)Comment: | | EXTERNAL | | | Esterase, | Testing performed at | | LAB | | | Urine | [facility], [address] | | | | | | [place] | | | | | | [address] | | | | + + + + + + | Nitrite, | NEGATIVEComment: Testing | | EXTERNAL | | | Urine | performed at [facility], [address] | | LAB | | | | [address], | | | | | | [place] [address] | | | | + + + + + + | Urobilinoge | 0.2Comment: Testing | mg/dL | EXTERNAL | | | n, Urine | performed at [facility], [address] | | LAB | | | | [address], | | | | | | [place] [address] | | | | + + + + + + | Protein, | 100 (A)Comment: Testing | mg/dL | EXTERNAL | | | Urine | performed at [facility], [address] | | LAB | | | | [address], | | | | | | [place] [address] | | | | + + + + + + | pH, Urine | 6.5Comment: Testing | 5.0 - 8.0 | EXTERNAL | | | | performed at [facility], [address] | | LAB | | | | [address], | | | | | | [place] [address] | | | | + + + + + + | Blood, | MODERATE (A)Comment: | | EXTERNAL | | | Urine | Testing performed at | | LAB | | | | [facility], [address] | | | | | | [place] | | | | | | [address] | | | | + + + + + + | Ketones | NEGATIVEComment: Testing | mg/dL | EXTERNAL | | | | performed at [facility], [address] | | LAB | | | | [address], | | | | | | [place] [address] | | | | + + + + + + | Bilirubin, | NEGATIVEComment: Testing | | EXTERNAL | | | Urine | performed at [facility], [address] | | LAB | | | | [address], | | | | | | [place] [address] | | | | + + + + + + | Glucose, | NEGATIVEComment: Testing | mg/dL | EXTERNAL | | | Urine | performed at [facility], [address] | | LAB | | | | [address], | | | | | | [place] [address] | | | | + + + [...] | | | | | [place] [address] | | | | + + + + + + | RBC, UA | 1-5Comment: Testing | 0 - 5 /hpf | EXTERNAL | | | | performed at [facility], [address] | | LAB | | | | [address], | | | | | | [place] [address] | | | | + + + + + + | Epithelial | 0-2Comment: Testing | /lpf | EXTERNAL | | | Cells | performed at [facility], [address] | | LAB | | | | [address], | | | | | | [place] [address] | | | | + + + + + + | Bacteria, | TRACE (A)Comment: | | EXTERNAL | | | UA | Testing performed at | | LAB | | | | [facility], [address] | | | | | | [place] | | | | | | [address] | | | | + + + + + + | Urinalysis | CULTURE TO | | EXTERNAL | | | Comments | FOLLOWComment: Testing | | LAB | | | | performed at [facility], [address] | | | | | | [place], | | | | | | [place] [address] | | | | + + + [...] EXTERNAL | | | | performed at [facility];888 | mg/dL | LAB | | | | [address];[place] | | | | | | [address] | | | | + + + [...] LAB | | C.diffAbnormal Testing performed at [facility];[address] [place] [address] | | | [phone] NAP1 BI 027 NAP1 BI | | | PRESUMPTIVE NEGATIVE Detection of 027 NAP1 BI strains of C. difficile | | | is presumptive and for epidemiological purposes and not intended to | | | guide or monitor treatment for C. difficile infections. Testing | | | performed at [facility];[address] [place] [address];[place] [address] | | + + + + +---------+ [...] EXTERNAL | | | | performed at [facility];[address] | mmol/L | LAB | | | | [address];[place], [place] | | | | | | [address] | | | | + + + [...] | | | | | | at [facility];[address] | | | | | | [facility];[place] [address] | | | | + + + [...] EXTERNAL | | | | performed at [facility];[address] | | LAB | | | | [address];[place], [place] | | | | | | [address] | | | | + + + [...] | | | | | performed at [facility];[address] | | | | | | [facility];[place], [place] | | | | | | [address] | | | | + + + [...] K/uL | LAB | | | | [facility];[address] | | | | | | [place] [address] | | | | + + + + + + | RED CELL | 3.66 (L)Comment: Testing | 3.70 - 5.10 | EXTERNAL | | | COUNT | performed at [facility];[address] | M/uL | LAB | | | | [address];[place] | | | | | | [address] | | | | + + + + + + | Hgb | 12.6Comment: Testing | 11.3 - 15.5 | EXTERNAL | | | | performed at [facility];[address] | g/dL | LAB | | | | [address];[place] | | | | | | [address] | | | | + + + + + + | Hematocrit, | 38.9Comment: Testing | 34.0 - 46.0 % | EXTERNAL | | | POC | performed at [facility];[address] | | LAB | | | | [address];[place] | | | | | | [address] | | | | + + + + + + | MCV | 106.3 (H)Comment: | 80.0 - 100.0 fl | EXTERNAL | | | | Testing performed at | | LAB | | | | [facility];[address] | | [address];[place] [address] | | | | + + + + + + | MCH | 34.3 (H)Comment: Testing | 27.0 - 34.0 pg | EXTERNAL | | | | performed at [facility];[address] | | LAB | | | | [address];[place] | | | | | | [address] | | | | + + + + + + | MCHC | 32.3Comment: Testing | 32.0 - 35.5 | EXTERNAL | | | | performed at [facility];[address] | g/dL | LAB | | | | [address];[place] | | | | | | [address] | | | | + + + + + + | RDW-CV | 54.7 (H)Comment: Testing | 37 - 53 fl | EXTERNAL | | | | performed at [facility];[address] | | LAB | | | | [address];[place] | | | | | | [address] | | | | + + + + + + | Platelet | 167Comment: Testing | 150 - 400 K/uL | EXTERNAL | | | Count | performed at [facility];[address] | | LAB | | | Plasma | [address];[place] | | | | | | [address] | | | | + + + + + + | MPV | 10.6Comment: Testing | fl | EXTERNAL | | | | performed at [facility];[address] | | LAB | | | | [address];[place] | | | | | | [address] | | | | + + + + + + | Differentia | MANUALComment: Testing | | EXTERNAL | | | l Type | performed at [facility];[address] | | LAB | | | | [address];[place] | | | | | | [address] | | | | + + + + + + | Segmented | 54Comment: Testing | % | EXTERNAL | | | Neutrophils | performed at [facility];[address] | | LAB | | | Manual | [address];[place] | | | | | | [address] | | | | + + + + + + | % Bands | 18Comment: Testing | % | EXTERNAL | | | | performed at [facility];[address] | | LAB | | | | [address];[place] | | | | | | [address] | | | | + + + + + + | Lymphocytes | 16Comment: Testing | % | EXTERNAL | | | Manual | performed at [facility];[address] | | LAB | | | | [address];[place] | | | | | | [address] | | | | + + + + + + | Monocytes | 12Comment: Testing | % | EXTERNAL | | | Manual | performed at [facility];[address] | | LAB | | | | [address];[place] | | | | | | [address] | | | | + + + + + + | Absolute | 10.69 (H)Comment: | 1.90 - 7.40 | EXTERNAL | | | Neutrophils | Testing performed at | K/uL | LAB | | | | [facility];[address] | | [address];[place] [address] | | | | + + + + + + | Bands | 3.56 (H)Comment: Testing | 0.00 - 0.20 | EXTERNAL | | | Manual | performed at [facility];[address] | K/uL | LAB | | | | [address];[place] | | | | | | [address] | | | | + + + + + + | Absolute | 3.16Comment: Testing | 1.00 - 3.90 | EXTERNAL | | | Lymphocytes | performed at [facility];[address] | K/uL | LAB | | | | [address];[place] | | | | | | [address] | | | | + + + + + + | Absolute | 2.37 (H)Comment: Testing | 0.00 - 0.80 | EXTERNAL | | | Monocytes | performed at [facility];[address] | K/uL | LAB | | | | [address];[place] | | | | | | [address] | | | | + + + + + + | Platelet | ADEQUATEComment: Testing | | EXTERNAL | | | Estimate | performed at [facility];[address] | | LAB | | | | [address];[place] | | | | | | [address] | | | | + + + + + + | RBC | NORMAL PLT MORPHComment: | | EXTERNAL | | | Morphology | 1+ANISOTesting | | LAB | | | | performed at [facility];[address] | | | | | | [address];[place] | | | | | | [address] | | | | | | | [...] EXTERNAL | | | | performed at [facility];888 | uIU/mL | LAB | | | | [address];[place], [place] | | | | | | [address] [...] EXTERNAL | | | | performed at [facility];[address] | | LAB | | | | [address];[place], [place] | | | | | | [address] | | | | + + + [...] | | LAB | | | | [facility];[address] | | | | | | [address];[place] [address] | | | | + + + [...] EXTERNAL | | | | performed at [facility];[address] | | LAB | | | | [address];[place], [place] | | | | | | [address] | | | | + + + [...] EXTERNAL | | | | performed at [facility];[address] | | LAB | | | | [address];[place] | | | | | | [address] | | | | + + + [...] EXTERNAL | | | | performed at [facility];[address] | mmol/L | LAB | | | | [address];[place] | | | | | | [address] | | | | + + + + + + | K | 3.4 (L)Comment: Testing | 3.5 - 4.9 | EXTERNAL | | | | performed at [facility];[address] | mmol/L | LAB | | | | [address];[place] | | | | | | [address] | | | | + + + + + + | Cl | 101Comment: Testing | 99 - 109 mmol/L | EXTERNAL | | | | performed at [facility];[address] | | LAB | | | | [address];[place] | | | | | | [address] | | | | + + + + + + | CO2 | 27Comment: Testing | 23 - 32 mmol/L | EXTERNAL | | | | performed at [facility];[address] | | LAB | | | | [address];[place] | | | | | | [address] | | | | + + + + + + | Anion Gap | 12Comment: Testing | 5 - 20 mmol/L | EXTERNAL | | | | performed at [facility];[address] | | LAB | | | | [address];[place] | | | | | | [address] | | | | + + + + + + | Glucose, | 106 (H)Comment: Testing | 65 - 99 mg/dL | EXTERNAL | | | Fasting | performed at [facility];[address] | | LAB | | | | [address];[place] | | | | | | [address] | | | | + + + + + + | BUN | 18Comment: Testing | 8 - 25 mg/dL | EXTERNAL | | | | performed at [facility];[address] | | LAB | | | | [address];[place] | | | | | | [address] | | | | + + + + + + | Creatinine | 1.3 (H)Comment: Testing | 0.50 - 1.00 | EXTERNAL | | | | performed at [facility];888 | mg/dL | LAB | | | | [address];[place] | | | | | | [address] | | | | + + + + + + | BUN/Creatin | 14Comment: Testing | | EXTERNAL | | | ine Ratio | performed at [facility];[address] | | LAB | | | | [address];[place] | | | | | | [address] | | | | + + + + + + | Calcium | 7.3 (L)Comment: Testing | 8.5 - 10.5 | EXTERNAL | | | | performed at [facility];888 | mg/dL | LAB | | | | [address];[place] | | | | | | [address] | | | | + + + + + + | Protein, | 7.9Comment: Testing | 6.3 - 8.2 g/dL | EXTERNAL | | | Total | performed at [facility];[address] | | LAB | | | | [address];[place] | | | | | | [address] | | | | + + + + + + | Albumin | 2.5 (L)Comment: Testing | 3.3 - 4.8 g/dL | EXTERNAL | | | | performed at [facility];[address] | | LAB | | | | [address];[place] | | | | | | [address] | | | | + + + + + + | Globulin | 5.4 (H)Comment: Testing | 1.3 - 4.9 g/dL | EXTERNAL | | | | performed at [facility];[address] | | LAB | | | | [address];[place] | | | | | | [address] | | | | + + + + + + | A/G Ratio | 0.5 (L)Comment: Testing | 1.0 - 2.4 | EXTERNAL | | | | performed at [facility];[address] | | LAB | | | | [address];[place] | | | | | | [address] | | | | + + + + + + | Bilirubin | 0.6Comment: Testing | 0.1 - 1.5 mg/dL | EXTERNAL | | | Total | performed at [facility];[address] | | LAB | | | | [address];[place] | | | | | | [address] | | | | + + + + + + | ALP, | 188 (H)Comment: Testing | 35 - 115 U/L | EXTERNAL | | | External | performed at [facility];[address] | | LAB | | | | [address];[place] | | | | | | [address] | | | | + + + + + + | AST | 51 (H)Comment: Testing | 10 - 45 U/L | EXTERNAL | | | | performed at [facility];[address] | | LAB | | | | [address];[place] | | | | | | [address] | | | | + + + + + + | ALT | 30Comment: Testing | 10 - 65 U/L | EXTERNAL | | | | performed at [facility];[address] | | LAB | | | | [address];[place] | | | | | | [address] | | | | + + + [...] | | | | | | at [facility];[address];[place] [address] | | | | + + + [...] Conversion - 01/05/2019 4:32 AM PDT COLE [id number] yearsXR | | CHEST 1 VIEW01/28/2015 2:40 [...]
--- OUTSIDE RECORDS SUMMARY | ~2019-06-03 | XMS | Encounter Summary ---
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 [facility] some [facility], a lung transplant is an option. Your healthcare team may include: A primary care provider,such as your family doctor. A sugar cane farm manager,a specialist in lung problems. A pulmonary nurse specialistwho helps you understand and carry out your treatment. A pulmonary rehabilitation specialistwho helps you gain strength through exercise. A social workerwho helps with your daily needs, family life, and stress. [id number] [employer] [place] [address]. All righ ts reserved. This information is [...]
--- OUTSIDE RECORDS SUMMARY | ~2019-06-03 | XMS | Encounter Summary ---
Demographics + + + | Address | [address] | | | [place] [address] | + + + | Home Phone [...] Team Providers + +------+ + | Care Crane Follower Name | Role | Phone | + [...] | | | CONSULT | [place] | [place] [address] | | | | | | [place], [place] | Phone: | | | | | | [address] | [phone] | | | | | | Phone: | Fax: | | | | | | [phone] | [phone] | | | | | | Fax: | | | | | | | [phone] | | +--------+--------+ + + + + [...] | Dx); Kyphosis | | | | [place], | [place], [place] | deformity of spine | | | | [place] [address] | [address] | | | | | [phone] | | | +--------+---------+ + + + [...] oxygen at 2 L per minute at [facility] while she slept. Over last 3 or [...] copy of the patient's echocardiogram from [facility] will be reviewed. CC: Yovani Santana documented in this encounter Plan of Treatment Not on filedocumented as of this encounter Results PFT PULMONARY FUNCTION TESTING ORDERS Full PFT ([place] w/BD, lung volumes, diffusion)?: Yes; Rest and [...] Melendez MD 03/27/2014 13:24 | | | [facility] | | + + + + [...] 03/26/14Electronically signed by: Gary Melendez MD 03/27/2014 13:24[facility] | | [facility] | | | |No prior pulmonary function tests available for comparison. | | | |Test performed: 03/26/14 | |Electronically signed by: aGry Melendez MD 03/27/2014 13:24 | |[facility] | + + documented in this encounter Visit Diagnoses + + | Diagnosis | + + | Hypoxemia - Primary | + + | Kyphosis deformity of spine Kyphosis (acquired) (postural) | + + documented in this encounter
--- OUTSIDE RECORDS SUMMARY | ~2019-06-03 | XMS | Encounter Summary ---
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 In some [facility], a lung transplant is an option. Your healthcare team may include: A primary care provider,such as your family doctor. A steel division supervisor,a specialist in lung problems. A pulmonary nurse specialistwho helps you understand and carry out your treatment. A pulmonary rehabilitation specialistwho helps you gain strength through exercise. A social workerwho helps with your daily needs, family life, and stress. [id number] [employer]. [address] [place] [address]. All righ ts reserved. This information is [...]
--- OUTSIDE RECORDS SUMMARY | ~2019-06-03 | XMS | Clinical Summary ---
Demographics + + + | Address | [address] | | | [place] [address] | + + + | Home Phone | | + + + | Preferred Language | Unknown | + + + | Marital Status | Unknown | + + + | Adventism Affiliation | Unknown | + + + | Race | Unknown | + + + | Ethnic Group | Unknown | + + + Author + + + | Author | [facility] | + + + | Organization | [facility] | + + + | Address | Unknown | + + + | Phone | Unavailable | + + + Care Team Providers + +------+ + | Care Accounts Payable Technician Name | Role | Phone | + +------+ + PCP | Unavailable | + +------+ + Source Comments JAYDEN is fully live on both EpicCare Ambulatory and EpicCare InPatient[facility] Allergies Not on File Medications Not [...]
--- OUTSIDE RECORDS SUMMARY | ~2019-06-03 | XMS | Encounter Summary ---
Demographics + + + | Address | [address] | | | [place] [address] | + + + | Home Phone | | + + + | Preferred Language | Unknown | + + + | Marital Status | Single | + + + | Adventist Affiliation | 1041 | + + + | Race | Unknown | + + + | Ethnic Group | Unknown | + + + Author + + + | Author | [facility] | | | and [place] | + + + | Organization | [facility] | | | [...] Team Providers + +------+ + | Care Metal Sprayer Machined Parts Name | Role | Phone | + [...] [place], [place] | | | | | [place], [place] | [address] | | | | | [address] | | | | | | [phone] | | | +--------+ + + + [...] 0.03 m/s | | | MV Dec Seminole: 9.74 m/s2 MV DecT: 91.63 ms MV E Billy: 0.89 | | | m/s MV E/A Ratio: 26.03 MV PHT: 26.57 ms MVA By PHT: 8.27 | | | cm2 Septal e': 0.06 m/s Septal E/e': 12.90 Lateral e': | | | 0.09 m/s Lateral E/e': 8.96 RAP: 5 mmHg RVSP: 17.59 mmHg | | | TR maxP.59 mmHg TR Vmax: 1.77 m/s Valuation Consultant: NAIF | | | Authenticated by: Conor [place] Report Date/Time: -- | | | [id number]:51:12 | | + + + + + [...] cmLVPWd: 1.14 cmLVOT | | Area: 3.33 [id number] Diam: 2.06 cm%FS: 26.43 %EF(Teich): 51.67 %ESV(Teich): [...] (A-L): | | 45.82 ml/m2LAAs A2C: 22.15 [id number] A-L A2C: 71.25 mlLALs A2C: 5.84 cmLAAs A4C: | | 28.64 [id number] A-L A4C: 104.24 mlLALs A4C: 6.68 cmRAAs: 14.65 [id number] A-L: | | 33.90 mlRAESV MOD: 34.21 mlRALs: 5.37 cmAV maxP.81 mmHgAV meanP.70 | | mmHgAV Vmax: 1.30 m/Sorin Vmean: 0.90 m/Sorin VTI: 24.74 cmAVA Vmax: 2.36 cm2AVA | | (VTI): 2.24 [id number] maxP.41 mmHgLVOT meanP.88 mmHgLVSI Dopp: 27.63 | | ml/m2LVSV Dopp: 55.54 mlLVOT Vmax: 0.92 m/sLVOT Vmean: 0.64 m/sLVOT VTI: 16.66 | | cmMV A Billy: 0.03 m/sMV Dec Seminole: 9.74 m/s2MV DecT: 91.63 msMV E Billy: 0.89 m/sMV | | E/A Ratio: 26.03MV PHT: 26.57 msMVA By PHT: 8.27 yb7Frrwey e': 0.06 m/sSeptal | | E/e': 12.90Lateral e': 0.09 m/sLateral E/e': 8.96RAP: 5 mmHgRVSP: 17.59 mmHgTR | | maxP.59 mmHgTR Vmax: 1.77 m/s Valuation Consultant: DHAuthenticated by: Conor | | [facility] Date/Time: -- [id number]:51:12 IMPRESSION: 1. The left ventricle is | [...] A Billy: 0.03 m/s | |MV Dec Semin[place]: 9.74 m/s2 | |MV DecT: 91.63 ms [...] |TR Vmax: 1.77 m/s | | | |Valuation Consultant: NAIF | |Authenticated by: Conor Garcia | |Report Date/Time: -- [id number]:51:12 | | | |IMPRESSION: | |1. The [...]
--- OUTSIDE RECORDS SUMMARY | ~2019-06-03 | XMS | Encounter Summary ---
Demographics + + + | Address | [address] | | | [place] [address] | + + + | Home Phone | | + + + | Preferred Language | Unknown | + + + | Marital Status | Single | + + + | Confucianism Affiliation | 1041 | + + + | Race | Unknown | + + + | Ethnic Group | Unknown | + + + Author + + + | Author | [facility] | | | and [place] | + + + | Organization | [facility] | | [...] Team Providers + +------+ + | Care Cementer Machine Applicator Name | Role | Phone | + +------+ + | Rick Osorio DO | PCP | | + +------+ + Encounter Details +--------+ + + + + | Date | Type | Department | Care Team | Description | +--------+ + + + + | 06/04/ | Orders Only | [facility] | Emil Oliva MD | | | 2013 | | NEPHROLOGY [place] | [address] | | | | | [address] | [address] [place], [place] | | | | | [address] [place], [place] | [address] | | | | | [address] | | | | | | [phone] | | | +--------+ + + + [...] | | | LAB | | | POLISH | | | | | + +-------+ [...]
--- OUTSIDE RECORDS SUMMARY | ~2019-06-03 | XMS | Clinical Summary ---
Demographics + + + | Address | [address] | | | [place] [address] | + + + | Home Phone | | + + + | Preferred Language | Unknown | + + + | Marital Status | Single | + + + | Amish Affiliation | 1041 | + + + | Race | Unknown | + + + | Ethnic Group | Unknown | + + + Author + + + | Author | [facility] | | | and [place] | + + + | Organization | [facility] | | | [...] Team Providers + +------+ + | Care Software Security Consultant Name | Role | Phone | [...] filefrom Last 3 Months Insurance + +--------+ +--------+ [...] | [employer] | [employer] | [id number] | 05/23/19 | | | Medica | | | HEALTH | | 14-Pre | | | re | | | MDCR | | sent | | | | + +--------+ +--------+ +---------+--------+ | [employer] | [employer] | [id number] | 05/23/19 | | | Medica | | | HEALTH | | 19-Pre | | | re | | | MDCR | | sent | | | | + +--------+ +--------+ +---------+--------+ | [employer] | [employer] | [id number] | 05/30/19 | [phone] | | Medica [...] | [address] | | | [place] | | | 1 (Home) | [place], [place] | | | | | | | [address] | + +--------+ +--------+ + + | Opal Petty | Person | Self [birth year] | [address] | | [place]ie | al/Fam | | [phone] | [phone] | [address] | | | [place] | | | [address] (Home) | [place], [place] | | | | | | | [address] | + +--------+ +--------+ + + Advance Directives + + + + + | Type | Date Recorded | Patient | Explanation | | | | Charge Rn | | + + + + + | Power of | | | | | Mold Cleaner | | | | + + + + + | Advance | 05/10/2014 | | | | Directive | 12:33 PM | | | + + + + +
--- OUTSIDE RECORDS SUMMARY | ~2019-06-03 | XMS | Encounter Summary ---
Demographics + + + | Address | [address] | | | [place] [address] | + + + | Home Phone | | + + + | Preferred Language | Unknown | + + + | Marital Status | Single | + + + | Muslim Affiliation | 1041 | + + + | Race | Unknown | + + + | Ethnic Group | Unknown | + + + Author + + + | Author | [facility] | | | and [place] | + + + | Organization | [facility] | | [...] Team Providers + +------+ + | Care Parts Classifier Name | Role | Phone | + +------+ + | Rick Osorio DO | PCP | | + +------+ + Encounter Details +--------+ + + + + | Date | Type | Department | Care Team | Description | +--------+ + + + + | 11/15/ | Orders Only | [facility] | Emil Oliva MD | | | 2014 | | NEPHROLOGY [place] | [address] | | | | | [address] | [address] [place], [place] | | | | | [address] [place], [place] | [address] | | | | | [address] | | | | | | [phone] | | | +--------+ + + + [...]
--- OUTSIDE RECORDS SUMMARY | ~2019-06-03 | XMS | Clinical Summary ---
Demographics + + + | Address | [address] | | | [place] [address] | + + + | Home Phone [...] Team Providers + +------+ + | Care Extract Wringer Name | Role | Phone | + [...] | [facility] | [facility] | [id number] | 05/23/19 | | | Medica | | | HEALTH | | 14-Pre | | | re | | | MDCR | | sent | | | | + +--------+ +--------+ +---------+--------+ | [facility] | [facility] | [id number] | 05/23/19 | | | Medica | | | HEALTH | | 19-Pre | | | re | | | MDCR | | sent | | | | + +--------+ +--------+ +---------+--------+ | [employer] [facility] | [facility] | [id number] | 05/30/19 | [phone] | | Medica [...] | | | | | | | [address] | + +--------+ +--------+ + + | Opal Petty | Person | Self [birth year] | [address] | | [place] | al/Fam | | 1946 | [phone] | [address] | | | [place] | | | 1 (Home) | [place], [place] | | | | | | | [address] | + +--------+ +--------+ + + Advance Directives + + + + + | Type | Date Recorded | Patient | Explanation | | | | Census Enumerator | | + + + + + | Power of | | | | | School Psychologist | | | | + + + + + | Advance | 05/10/2014 | | | | Directive | 12:33 PM | | | + + + + +
--- OUTSIDE RECORDS SUMMARY | ~2019-06-03 | XMS | Encounter Summary ---
Demographics + + + | Address | [address] | | | [place] [address] | + + + | Home Phone [...] Team Providers + +------+ + | Care Electronics Warfare Technician Name | Role | Phone | [...] | | | | | [place], | [place], [place] | | | | | [place] [address] | [address] | | | | | [phone] | | | +--------+ + + + [...]
--- OUTSIDE RECORDS SUMMARY | ~2019-06-03 | XMS | Encounter Summary ---
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 In some [facility], a lung transplant is an option. Your healthcare team may include: A primary care provider,such as your family doctor. A inside sales associate,a specialist in lung problems. A pulmonary nurse specialistwho helps you understand and carry out your treatment. A pulmonary rehabilitation specialistwho helps you gain strength through exercise. A social workerwho helps with your daily needs, family life, and stress. [id number] [employer]. [address] [place] [address]. All righ ts reserved. This information is [...]
--- OUTSIDE RECORDS SUMMARY | ~2019-06-03 | XMS | Encounter Summary ---
Demographics + + + | Address | [address] | | | [place] [address] | + + + | Home Phone [...] Team Providers + +------+ + | Care Hemodialysis Patient Care Specialist Name | Role | Phone | + +------+ + | Yovani Santana MD | PCP | | + +------+ + Encounter Details +--------+ + + + + | Date | Type | Department | Care Team | Description | +--------+ + + + + | 03/26/ | Hospital | [facility] | Melendez, Gary, | Hypoxemia; Kyphosis | | 2014 | Encounter | MED CTR PULMONARY | MD [address] | deformity of spine | | | | FUNCTION [address] | [place], [place] | | | | | [place], | [address] | | | | | [place] [address] | | | | | | [phone] | | | +--------+ + + + [...] Melendez MD 03/27/2014 13:24 | | | [facility] | | + + + [...] Melendez MD 03/27/2014 13:24[facility] | | [facility] | | | |No prior pulmonary function tests available for comparison. | | | |Test performed: 03/26/14 | |Electronically signed by: Gary Melendez MD 03/27/2014 13:24 | |[facility] | + + documented in this encounter Visit Diagnoses + + | Diagnosis | + + | Hypoxemia | + + | Kyphosis deformity of spine Kyphosis (acquired) (postural) | + + documented in this encounter"
--- OUTSIDE RECORDS SUMMARY | ~2019-06-03 | XMS | Encounter Summary ---
Demographics + + + | Address | [address] | | | [place] [address] | + + + | Home Phone | | + + + | Preferred Language | Unknown | + + + | Marital Status | Single | + + + | Latter Day Affiliation | 1041 | + + + | Race | Unknown | + + + | Ethnic Group | Unknown | + + + Author + + + | Author | [facility] | | | and [place] | + + + | Organization | [facility] | | [...] Team Providers + +------+ + | Care Evaporator Name | Role | Phone | + +------+ + | Rick Osorio DO | PCP | | + +------+ + Encounter Details +--------+ + + + + | Date | Type | Department | Care Team | Description | +--------+ + + + + | 06/04/ | Orders Only | [facility] | Emil Oliva MD | | | 2013 | | NEPHROLOGY [place] | [address] | | | | | [address] | [address] [place], [place] | | | | | [address] [place], [place] | [address] | | | | | [address] | | | | | | [phone] | | | +--------+ + + + [...]
--- OUTSIDE RECORDS SUMMARY | ~2019-06-03 | XMS | Encounter Summary ---
Demographics + + + | Address | [address] | | | [place] [address] | + + + | Home Phone | | + + + | Preferred Language | Unknown | + + + | Marital Status | Single | + + + | Holiness Affiliation | 1041 | + + + [...] Team Providers + +------+ + | Care Junior Network Administrator Name | Role | Phone | + [...] | | | | | [address] | [address] [place], [place] | | | | | [address] [place], [place] | [address] | | | | | [address] | | | | | | [phone] | | | +--------+ + + + [...]
--- OUTSIDE RECORDS SUMMARY | ~2019-06-03 | XMS | Encounter Summary ---
Demographics + + + | Address | [address] | | | [place] [address] | + + + | Home Phone | | + + + | Preferred Language | Unknown | + + + | Marital Status | Single | + + + | Buddhism Affiliation | 1041 | + + + [...] Team Providers + +------+ + | Care Visual Education Director Name | Role | Phone | [...] | | | CONSULT | [place] | [place] [address] | | | | | | [place], [place] | Phone: | | | | | | [address] | [phone] | | | | | | Phone: | Fax: | | | | | | [phone] | [phone] | | | | | | Fax: | | | | | | | [phone] | | +--------+--------+ + + + + [...] | Dx); Kyphosis | | | | [place], | [place], [place] | deformity of spine | | | | [place] [address] | [address] | | | | | [phone] | | | +--------+---------+ + + + [...] PFT PULMONARY FUNCTION TESTING ORDERS Full PFT ([place] w/BD, lung volumes, diffusion)?: Yes; Rest and [...] Melendez MD 03/27/2014 13:24 | | | [facility] | | + + + + [...] 03/26/14Electronically signed by: Gary Melendez MD 03/27/2014 13:24[facility] | | [facility] | | | |No prior pulmonary function tests available for comparison. 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
--- OUTSIDE RECORDS SUMMARY | ~2019-06-03 | XMS | Encounter Summary ---
Demographics + + + | Address | [address] | | | [place] [address] | + + + | Home Phone [...] Author + + + | Author | [facility] | | | and [place] | + + + | Organization | [facility] | | | [...] Team Providers + +------+ + | Care Art Sales Consultant Name | Role | Phone | + +------+ + | Yovani Santana MD | PCP | | + +------+ + Encounter Details +--------+ + + + + | Date | Type | Department | Care Team | Description | +--------+ + + + + | 01/28/ | Hospital | [facility] | Jacob Smith, | | | 2014 - | Encounter | [facility] | MD Carmelo SANTAMARIA | | | | | CARE FLOOR [address] | [place] [address] | | | 02/03/ | | TIERA SANTAMARIA | [phone] | | | 2014 | | [place], [place] | | | | | | [address] | | | | | | [phone] | | | +--------+ + + + [...] Date of Service: 02/03/15 1029 Status: Signed Flake Drier: Jose Maria Espinal MD (Physician) Related Notes: Original Note by Jose Maria Espinal MD (Physician) filed at 02/04/15 1345 [facility] Service: Hospitalist [...] 2-4 lpm, Presented as a transfer from [facility] in [place] for fever of 101 and altered mental s tatus. She was discharged from [facility] on 01/09/15 for elevated troponin and acute [...] antibiotics. She was brought back in to [facility] for fever and confusion. UA and CXR reportedly negative there. SBP was 90s. She had formed stool there but en route here she did develop watery stool, tested C diff + here.".......per admitting MD/Dr. Smith . The patient was admitted to [facility] with a diagnosis of Clostridium difficile infection while she was being transferred from [facility] with fever and altered mental status. Th e patient has underlying immunosuppression secondary to a remote history of liver transplant on chronic immunosuppressive therapy with azathioprine and cyclosporin. Following her trans fletcher to [facility], she was started on oral vancomycin initially [...] medically stable for discharge to return to [facility] in [place] on Jan. ADDITIONAL ISSUES 1. Recurrent atelectasis. [...] days. I would urge managing physician at custodial facility where the patient resides in [facility] to check anothe r magnesium level [...] COLONOSCOPY; Surgeon: Juan Ramey MD; Location: [facility] ENDOSCOPY; Service: Gastroenterology; Laterality: N/A; Discharged Condition: [...] [facility] [address] [place] [id number] Schedule an appointment as soon as possible [...] to Get Your Medications You need to pickling solution maker these prescriptions. We sent some of them to a specific pharmacy. Go t o these places to get your medications. [facility] - [place], [place] - [address] - lactobacillus granules [address] [place] [address] You may get the following medications from [...] 02/03/151608 Date of Service: 02/03/151608 Status: Signed Flake Drier: Pedro Partida RN (Registered Nurse) 02/03/151602 Discharge Planning Evaluation Admitting Diagnosis Elevated temp, CKD, post liver transplant Readmission Yes-within 14 days Reason for readmission Fever, confusion, C.dif Last discharge disposition [facility] Facility Needs met at last discharge Yes Picked up discharge Rx medications Yes Started prescribed DC meds Yes Understood discharge instructions Yes Assistance available Yes Concerns for meeting needs No Caregiver after Discharge Yes Mental Status Oriented Anticipated Disposition Facility Type [facility] facility [facility] Facility Other (comment) ([facility] in [place]) Disposition: Return to [facility] Transportation: Facility van to transport. All [...] 02/03/15899 Date of Service: 02/02/151521 Status: Signed Flake Drier: Jose Maria Espinal MD (Physician) Related Notes: Original Note by Jose Maria Espinal MD (Physician) filed at 02/02/15 1950 [facility] Service: Hospitalist Progress Note Pt: Cole Ernst AGE/SEX: 69 y.o. female : 1945 ROOM: [facility] History of Present Illness: " The patient is a 69 y.o. female with significant past medical history of liver transplant int he 90s on cyclosporine and imuran, chronic pain on methadone, CKD st 3, chronic home O2 of unclear etiology from 2-4 lp, Presented as a transfer from [facility] in [place] for fever of 101 and altered mental s tatus. She was discharged from [facility] on 01/09/15 for elevated troponin and acute [...] antibiotics. She was brought back in to [facility] for fever and confusion. UA and [...] sulfate. Case management [facility] [place] [facility] in the next [...] contrast. Prior study for comparison: None FINDINGS: Fruit Distributor 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 deg enerative changes of [...] LA/Ao: 1.57 D-E Excursion: 2.11 cm E-F Mccurtain: 0.09 m/s EPSS: 0.48 cm HR: 77.41 [...] TV A Billy: 0.66 m/s TV Dec Mccurtain: 4.36 m/s2 TV Dec Time: 184.41 ms TV E Billy: 0.80 m/s TV E/A Rat io: 1.21 Plugger Man: NEDRA Authenticated by: Gil Martines MD Report [...] COLONOSCOPY; Surgeon: Juan Ramey MD; Location: [facility] ENDOSCOPY; Service: Gastroenterology; Laterality: N/A; PROBLEM LIST [...] by Jose Maria Espinal MD at 02/01/15 7088 Author: Jose Maria Espinal MD Service: Hospitalist Author Type: Physician Filed: 02/02/15 1526 Date of Service: 02/01/151716 Status: Signed Flake Drier: Jose Maria Espinal MD (Physician) Related Notes: Original Note by Jose Maria Espinal MD (Physician) filed at 02/02/15 1303 [facility] Service: Hospitalist Progress Note Pt: Cole Ernst AGE/SEX: 69 y.o. female : 1945 ROOM: [address] [place] [address] History of Present Illness: " The patient is a 69 y.o. female with significant past medical history of liver transplant int he 90s on cyclosporine and imuran, chronic pain on methadone, CKD st 3, chronic home O2 of unclear etiology from 2-4 lpm, Presented as a transfer from [facility] for fever of 101 and altered mental s tatus. She was discharged from [facility] on 01/09/15 for elevated troponin and acute [...] antibiotics. She was brought back in to [facility] for fever and confusion. UA and [...] establishing readiness of the faci lity in [place] to accept the patient in the next [...] contrast. Prior study for comparison: None FINDINGS: Fruit Distributor 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 deg enerative changes of [...] LA/Ao: 1.57 D-E Excursion: 2.11 cm E-F Mccurtain: 0.09 m/s EPSS: 0.48 cm HR: 77.41 [...] TV A Billy: 0.66 m/s TV Dec Mccurtain: 4.36 m/s2 TV Dec Time: 184.41 ms TV E Billy: 0.80 m/s TV E/A Rat io: 1.21 Plugger Man: NEDRA Authenticated by: Gil Martines MD Report [...] COLONOSCOPY; Surgeon: Juan Ramey MD; Location: [facility] ENDOSCOPY; Service: Gastroenterology; Laterality: N/A; PROBLEM LIST [...] Currently with normal liver function tests. 3. Wgbyi-sd-axeohkt liver disease, stage III. Creatinine level has [...] 01/31/152124 Date of Service: 01/31/151513 Status: Signed Flake Drier: Jose Maria Espinal MD (Physician) Related Notes: Original Note by Jose Maria Espinal MD (Physician) filed at 01/31/15 1523 [facility] Service: Hospitalist Progress Note Pt: Cole Ernst AGE/SEX: 69 y.o. female : 1945 ROOM: [address] [place] [address] History of Present Illness: " The patient is a 69 y.o. female with significant past medical history of liver transplant int he 90s on cyclosporine and imuran, chronic pain on methadone, CKD st 3, chronic home O2 of unclear etiology from 2-4 lpm, Presented as a transfer from [facility] in [place] for fever of 101 and altered mental s tatus. She was discharged from [facility] on 01/09/15 for elevated troponin and acute [...] antibiotics. She was brought back in to [facility] for fever and confusion. UA and [...] contrast. Prior study for comparison: None FINDINGS: Fruit Distributor 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 deg enerative changes of [...] LA/Ao: 1.57 D-E Excursion: 2.11 cm E-F Mccurtain: 0.09 m/s EPSS: 0.48 cm HR: 77.41 [...] TV A Billy: 0.66 m/s TV Dec Mccurtain: 4.36 m/s2 TV Dec Time: 184.41 ms TV E Billy: 0.80 m/s TV E/A Rat io: 1.21 Plugger Man: NEDRA Authenticated by: Gil Martines MD Report [...] COLONOSCOPY; Surgeon: Juan Ramey MD; Location: [facility] ENDOSCOPY; Service: Gastroenterology; Laterality: N/A; PROBLEM LIST [...] 1313 Date of Service: 01/31/151312 Status: Signed Flake Drier: Catina Moon () Attempted visit. Pt sitting in chair sleeping. No family present. Chaplain Catina Moon onver alessandro Transaction, Provider Unknown - 01/31/2015 11:35 AM PDT Therapy Progress Note by Mahi Yanes PTA at 01/31/15 1135 Author: Mahi Yanes PTA Service: (none) Author Type: Topographical Drafter Filed: 01/31/15 1410 Date of Service: 01/31/151134 Status: Signed Flake Drier: Mahi Yanes PTA (Topographical Drafter) 01/31/15 1135 PT Last Visit PT Received [...] PDT Case Management by Gregg Keene MS, ROUTE RETURNER at 01/31/15 1007 Author: Gregg Keene, MS, ROUTE RETURNER Service: (none) Author Type: Gas Attendant Filed: 01/31/15 1546 Date of Service: 01/31/15 1007 Status: Addendum Flake Drier: Gregg Keene , ROUTE RETURNER (Gas Attendant) Related Notes: Original Note by Gregg Yecenia MS, ROUTE RETURNER (Gas Attendant) filed at 01/31/15 1007 Discharge planning - CM faxed updated clinical to Gi at [facility]. Discharge form s on front of chart for MD signature. CM notified Gi of anticipated d/c this weekend. onver alessandro Transaction, Provider Unknown - 01/30/2015 5:05 PM PDT Therapy Progress Note by Gail Vernon PT at 01/30/15 1705 Author: Gail Vernon PT Service: (none) Author Type: Physical Therapist Filed: 01/30/15 6618 Date of Service: 01/30/15 1705 Status: Signed Flake Drier: Gail Vernon PT (Physical Therapist) 01/30/15 170 [...] Service: Hospitalist Author Type: Physician Filed: 01/31/15 1408 Date of Service: 01/30/15 1414 Status: Signed Flake Drier: Jose Maria Espinal MD (Physician) Related Notes: Original Note by Jose Maria Espinal MD (Physician) filed at 01/30/15 5366 [facility] Service: Hospitalist [...] 2-4 lpm, Presented as a transfer from [facility] in [place] for fever of 101 and altered mental s tatus. She was discharged from [facility] on 01/09/15 for elevated troponin and acute [...] antibiotics. She was brought back in to [facility] for fever and confusion. UA and [...] contrast. Prior study for comparison: None FINDINGS: Fruit Distributor 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 deg enerative changes of [...] LA/Ao: 1.57 D-E Excursion: 2.11 cm E-F Mccurtain: 0.09 m/s EPSS: 0.48 cm HR: 77.41 [...] TV A Billy: 0.66 m/s TV Dec Mccurtain: 4.36 m/s2 TV Dec Time: 184.41 ms TV E Billy: 0.80 m/s TV E/A Rat io: 1.21 Plugger Man: NEDRA Authenticated by: Gil Martines MD Report [...] COLONOSCOPY; Surgeon: Juan Ramey MD; Location: [facility] ENDOSCOPY; Service: Gastroenterology; Laterality: N/A; PROBLEM LIST [...] Patient's live r functions remain normal. 3. Wirip-so-nrlkrwr kidney disease stage III. Creatinine level has [...] by Jose Maria Espinal MD at 01/29/15 995 Author: Jose Maria Espinal MD Service: Hospitalist Author Type: Physician Filed: 01/30/15 0957 Date of Service: 01/29/151650 Status: Signed Flake Drier: Jose Maria Espinal MD (Physician) Related Notes: Original Note by Jose Maria Espinal MD (Physician) filed at 01/29/152024 [facility] Service: Hospitalist Progress Note Pt: Cole Ernst AGE/SEX: 69 y.o. female : 1945 ROOM: [address] [place] [address] History of Present Illness: " The patient is a 69 y.o. female with significant past medical history of liver transplant int he 90s on cyclosporine and imuran, chronic pain on methadone, CKD st 3, chronic home O2 of unclear etiology from 2-4 lpm, Presented as a transfer from [facility] in [place] for fever of 101 and altered mental s tatus. She was discharged from [facility] on 01/09/15 for elevated troponin and acute [...] antibiotics. She was brought back in to [facility] for fever and confusion. UA and [...] contrast. Prior study for comparison: None FINDINGS: Fruit Distributor 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 deg enerative changes of [...] LA/Ao: 1.57 D-E Excursion: 2.11 cm E-F Mccurtain: 0.09 m/s EPSS: 0.48 cm HR: 77.41 [...] TV A Billy: 0.66 m/s TV Dec Mccurtain: 4.36 m/s2 TV Dec Time: 184.41 ms TV E Billy: 0.80 m/s TV E/A Rat io: 1.21 Plugger Man: NEDRA Authenticated by: Gil Martines MD Report [...] COLONOSCOPY; Surgeon: Juan Ramey MD; Location: [facility] ENDOSCOPY; Service: Gastroenterology; Laterality: N/A; PROBLEM LIST [...] Date of Service: 01/29/15 1525 Status: Signed Flake Drier: Pedro Partida RN (Registered Nurse) 01/29/15 1521 Discharge Planning Evaluation Admitting Diagnosis Intestinal infection C.dif. Readmission Yes-within 14 days Reason for readmission Intestinal infection C.dif Last discharge disposition [facility]way Facility Needs met at last discharge Yes Picked up discharge Rx medications Not applicable Followed up with primary or specialty provider Yes Understood discharge instructions Yes Assistance available Yes Living Arrangements Alone Support Systems Friends/neighbors Type of Residence Private residence House type Apartment Independent with ADL's Yes Independent with Mobility Yes Caregiver after Discharge Yes Mental Status Oriented Anticipated Disposition Facility Type [facility] facility [facility]way Facility Other (comment) ([facility] in [place]) Met with: patient and discussed discharge planning, Pt is a 69 y.o., female who was discharged from [facility] [address] [facility]. Her sister, Renée Tipton is emergency contact, . Patient's PCP is: K[facility] DE JESUS Patient's insurance: Medicare Coverage concerns: Medication coverage/concerns: Community resources utilized / needed: Assistance in transportation: Identification of any specific education / training: Barriers to Discharge / Alternative housing needed: Anticipated DCP: Return to [facility] PEDRO PARTIDA RN onver alessandro Nicole Provider Unknown - 01/29/2015 8:55 AM PDT Therapy Progress Note by Barbara Edmond PT at 01/29/15 0855 Author: Barbara Edmond PT Service: (none) Author Type: Physical Therapist Filed: 01/29/1533 Date of Service: 01/29/15854 Status: Signed Flake Drier: Barbara Edmond PT (Physical Therapist) 01/29/15 08 [...] to SNF after current hospital stay. 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 Reports a few falls at facility ov er last week, otherwise denies falls over last 6mos. Was getting therapies at facility. Prior Function Level of [place] Modified independent with ADLs;Modified independent with functional [...] Barriers to Discharge Physical Deficits Impacting Functional [place];Self-care Deficit s Impacting Functional [place];Equipment Needs (see comment);Pain Recommendation Comments Needs return [...] Barriers to Discharge Physical Deficits Impacting Functional [place];Self-care Deficit s Impacting Functional [place];Equipment Needs (see comment);Pain Recommendation Comments Needs return [...] 01/29/15831 Date of Service: 01/29/15830 Status: Signed Flake Drier: Malick Ramos RN (Registered Nurse) Infection Prevention Note: Patient stool is positive for C. Diff. Contact Enteric Precautions are required until furt her notice. Thank you. Malick Ramos RN, BA, Paper Making Machine Operator onver alessandro Transaction, Provider Unknown - 01/28/2015 3:23 PM PDT Progress Notes by Jimena Duarte RPH at 01/28/151522 Author: Jimena Duarte RPH Service: (none) Author Type: Pharmacist Filed: 01/28/15 152 Date of Service: 01/28/151522 Status: Signed Flake Drier: Jimena Duarte RPH (Pharmacist) Zosyn Extended Infusion Initial Consult-Per Dr. Jacob Ernst 69 y.o. female CrCl cannot be calculated (Unknown ideal weight.). NEUTROPHILS ABS Date Value Ref Range Status 01/18/2015 3.26 1.90 - 7.40 K/uL Final Comment: Testing performed at [facility], [address] [place] [address] CREATININE Date Value Ref Range Status 01/19/2015 0.96 0.50 - 1.00 mg/dL Final Comment: Testing performed at [facility], [address] [place] [address] Zosyn extended Infusion loading and maintenance dose guidelines Loading Dose 4.5 g IV Over 30 minutes CrCl >20 ml/min 3.375 g IV Q 8 hours Over 4 hours CrCl 10-20 ml/min 3.375 g IV Q 12 hours Over 4 hours CrCl <10, HD, PD Follow [facility] Dosage Adjustments in Renal Dysfunction Protocol Plan [...] 01/28/151515 Date of Service: 01/28/151515 Status: Signed Flake Drier: Jimena Duarte RPH (Pharmacist) Renal Dosing Monitoring: [...] | | | | | [place] [address] | | | | + + + + + + | RED CELL | 2.72 (L)Comment: Testing | 3.70 - 5.10 | EXTERNAL | | | COUNT | performed at [facility], [address] | M/uL | LAB | | | | [address], | | | | | | [place] [address] | | | | + + + + + + | Hgb | 9.6 (L)Comment: Testing | 11.3 - 15.5 | EXTERNAL | | | | performed at [facility], [address] | g/dL | LAB | | | | [address], | | | | | | [place] [address] | | | | + + + + + + | Hematocrit, | 28.8 (L)Comment: Testing | 34.0 - 46.0 % | EXTERNAL | | | POC | performed at [facility], [address] | | LAB | | | | [address], | | | | | | [place] [address] | | | | + + + + + + | MCV | 106.0 (H)Comment: | 80.0 - 100.0 fl | EXTERNAL | | | | Testing performed at | | LAB | | | | [facility], [address] | | | | | | [place] | | | | | | [address] | | | | + + + + + + | MCH | 35.2 (H)Comment: Testing | 27.0 - 34.0 pg | EXTERNAL | | | | performed at [facility], [address] | | LAB | | | | [address], | | | | | | [place] [address] | | | | + + + + + + | MCHC | 33.2Comment: Testing | 32.0 - 35.5 | EXTERNAL | | | | performed at [facility], [address] | g/dL | LAB | | | | [address], | | | | | | [place] [address] | | | | + + + + + + | RDW-CV | 53.4 (H)Comment: Testing | 37 - 53 fl | EXTERNAL | | | | performed at [facility], [address] | | LAB | | | | [address], | | | | | | [place] [address] | | | | + + + + + + | Platelet | 216Comment: Testing | 150 - 400 K/uL | EXTERNAL | | | Count | performed at [facility], [address] | | LAB | | | Plasma | [address], | | | | | | [place] [address] | | | | + + + + + + | MPV | 10.5Comment: Testing | fl | EXTERNAL | | | | performed at [facility], [address] | | LAB | | | | [address], | | | | | | [place], [place] [address] | | | | + + + + + + | Differentia | MANUALComment: Testing | | EXTERNAL | | | l Type | performed at [facility], [address] | | LAB | | | | [address], | | | | | | [place], [place] [address] | | | | + + + + + + | Segmented | 35Comment: Testing | % | EXTERNAL | | | Neutrophils | performed at [facility], [address] | | LAB | | | Manual | [address], | | | | | | [place] [address] | | | | + + + + + + | % Bands | 1Comment: Testing | % | EXTERNAL | | | | performed at [facility], [address] | | LAB | | | | [address], | | | | | | [place] [address] | | | | + + + + + + | Lymphocytes | 44Comment: Testing | % | EXTERNAL | | | Manual | performed at [facility], [address] | | LAB | | | | [address], | | | | | | [place] [address] | | | | + + + + + + | Monocytes | 12Comment: Testing | % | EXTERNAL | | | Manual | performed at [facility], [address] | | LAB | | | | [address], | | | | | | [place] [address] | | | | + + + + + + | Eosinophils | 8Comment: Testing | % | EXTERNAL | | | Manual | performed at [facility], [address] | | LAB | | | | [address], | | | | | | [place] [address] | | | | + + + + + + | Absolute | 3.08Comment: Testing | 1.90 - 7.40 | EXTERNAL | | | Neutrophils | performed at [facility], [address] | K/uL | LAB | | | | [address], | | | | | | [place] [address] | | | | + + + + + + | Bands | 0.09Comment: Testing | 0.00 - 0.20 | EXTERNAL | | | Manual | performed at [facility], [address] | K/uL | LAB | | | | [address], | | | | | | [place] [address] | | | | + + + + + + | Absolute | 3.88Comment: Testing | 1.00 - 3.90 | EXTERNAL | | | Lymphocytes | performed at [facility], [address] | K/uL | LAB | | | | [address], | | | | | | [place] [address] | | | | + + + + + + | Absolute | 1.06 (H)Comment: Testing | 0.00 - 0.80 | EXTERNAL | | | Monocytes | performed at [facility], [address] | K/uL | LAB | | | | [address], | | | | | | [place] [address] | | | | + + + + + + | Absolute | 0.70 (H)Comment: Testing | 0.00 - 0.50 | EXTERNAL | | | Eosinophils | performed at [facility], [address] | K/uL | LAB | | | | [address], | | | | | | [place] [address] | | | | + + + + + + | RBC | NORMAL PLT MORPHComment: | | EXTERNAL | | | Morphology | NORMAL RBC MORPHTesting | | LAB | | | | performed at [facility], [address] | | | | | | [address], | | | | | | [place] [address] | | | | + + + [...] EXTERNAL | | | | performed at [facility], [address] | | LAB | | | | [address], | | | | | | [place] [address] | | | | + + + [...] EXTERNAL | | | | performed at [facility], [address] | | LAB | | | | [address], | | | | | | [place] [address] | | | | + + + [...] | | | | | [place] [address] | | | | + + + + + + | K | 4.0Comment: Testing | 3.5 - 4.9 | EXTERNAL | | | | performed at [facility], [address] | mmol/L | LAB | | | | [address] [place], | | | | | | [place] [address] | | | | + + + + + + | Cl | 102Comment: Testing | 99 - 109 mmol/L | EXTERNAL | | | | performed at [facility], [address] | | LAB | | | | [address], | | | | | | [place] [address] | | | | + + + + + + | CO2 | 33 (H)Comment: Testing | 23 - 32 mmol/L | EXTERNAL | | | | performed at [facility], [address] | | LAB | | | | [address], | | | | | | [place] [address] | | | | + + + + + + | Anion Gap | 5Comment: Testing | 5 - 20 mmol/L | EXTERNAL | | | | performed at [facility], [address] | | LAB | | | | [address], | | | | | | [place] [address] | | | | + + + + + + | Glucose, | 105 (H)Comment: Testing | 65 - 99 mg/dL | EXTERNAL | | | Fasting | performed at [facility], [address] | | LAB | | | | [address], | | | | | | [place] [address] | | | | + + + + + + | BUN | 9Comment: Testing | 8 - 25 mg/dL | EXTERNAL | | | | performed at [facility], [address] | | LAB | | | | [address], | | | | | | [place] [address] | | | | + + + + + + | Creatinine | 0.82Comment: Testing | 0.50 - 1.00 | EXTERNAL | | | | performed at [facility], [address] | mg/dL | LAB | | | | [address], | | | | | | [place] [address] | | | | + + + + + + | BUN/Creatin | 11Comment: Testing | | EXTERNAL | | | ine Ratio | performed at [facility], [address] | | LAB | | | | [address], | | | | | | [place] [address] | | | | + + + + + + | Calcium | 8.5Comment: Testing | 8.5 - 10.5 | EXTERNAL | | | | performed at [facility], [address] | mg/dL | LAB | | | | [address] [place], | | | | | | [place] [address] | | | | + + + + + + | Protein, | 6.3Comment: Testing | 6.3 - 8.2 g/dL | EXTERNAL | | | Total | performed at [facility], [address] | | LAB | | | | [address], | | | | | | [place] [address] | | | | + + + + + + | Albumin | 2.8 (L)Comment: Testing | 3.3 - 4.8 g/dL | EXTERNAL | | | | performed at [facility], [address] | | LAB | | | | [address], | | | | | | [place] [address] | | | | + + + + + + | Globulin | 3.5Comment: Testing | 1.3 - 4.9 g/dL | EXTERNAL | | | | performed at [facility], [address] | | LAB | | | | [address], | | | | | | [place] [address] | | | | + + + + + + | A/G Ratio | 0.8 (L)Comment: Testing | 1.0 - 2.4 | EXTERNAL | | | | performed at [facility], [address] | | LAB | | | | [address], | | | | | | [place] [address] | | | | + + + + + + | Bilirubin | 0.5Comment: Testing | 0.1 - 1.5 mg/dL | EXTERNAL | | | Total | performed at [facility], [address] | | LAB | | | | [address], | | | | | | [place] [address] | | | | + + + + + + | ALP, | 102Comment: Testing | 35 - 115 U/L | EXTERNAL | | | External | performed at [facility], [address] | | LAB | | | | [address], | | | | | | [place] [address] | | | | + + + + + + | AST | 53 (H)Comment: Testing | 10 - 45 U/L | EXTERNAL | | | | performed at [facility], [address] | | LAB | | | | [address], | | | | | | [place] [address] | | | | + + + + + + | ALT | 21Comment: Testing | 10 - 65 U/L | EXTERNAL | | | | performed at [facility], [address] | | LAB | | | | [address], | | | | | | [place] [address] | | | | + + + [...] | | | | | | at [facility], [address] | | | | | | [address] [facility], | | | | | | [place] [address] | | | | + + + [...] EXTERNAL | | | | performed at [facility];[address] | mmol/L | LAB | | | | [address];[place], [place] | | | | | | [address] | | | | + + + [...] EXTERNAL | | | | performed at [facility];[address] | | LAB | | | | [address];[place] | | | | | | [address] | | | | + + + [...] EXTERNAL | | | | performed at [facility], [address] | K/uL | LAB | | | | [address], | | | | | | [place] [address] | | | | + + + + + + | RED CELL | 2.78 (L)Comment: Testing | 3.70 - 5.10 | EXTERNAL | | | COUNT | performed at [facility], [address] | M/uL | LAB | | | | [address], | | | | | | [place] [address] | | | | + + + + + + | Hgb | 9.7 (L)Comment: Testing | 11.3 - 15.5 | EXTERNAL | | | | performed at [facility], [address] | g/dL | LAB | | | | [address], | | | | | | [place] [address] | | | | + + + + + + | Hematocrit, | 29.6 (L)Comment: Testing | 34.0 - 46.0 % | EXTERNAL | | | POC | performed at [facility], [address] | | LAB | | | | [address], | | | | | | [place] [address] | | | | + + + + + + | MCV | 106.3 (H)Comment: | 80.0 - 100.0 fl | EXTERNAL | | | | Testing performed at | | LAB | | | | [facility], [address] [facility] [address] | | | | | | [place] | | | | | | [address] | | | | + + + + + + | MCH | 34.8 (H)Comment: Testing | 27.0 - 34.0 pg | EXTERNAL | | | | performed at [facility], [address] | | LAB | | | | [address], | | | | | | [place] [address] | | | | + + + + + + | MCHC | 32.8Comment: Testing | 32.0 - 35.5 | EXTERNAL | | | | performed at [facility], [address] | g/dL | LAB | | | | [address], | | | | | | [place] [address] | | | | + + + + + + | RDW-CV | 53.8 (H)Comment: Testing | 37 - 53 fl | EXTERNAL | | | | performed at [facility], [address] | | LAB | | | | [address], | | | | | | [place] [address] | | | | + + + + + + | Platelet | 181Comment: Testing | 150 - 400 K/uL | EXTERNAL | | | Count | performed at [facility], [address] | | LAB | | | Plasma | [address], | | | | | | [place] [address] | | | | + + + + + + | MPV | 11.3Comment: Testing | fl | EXTERNAL | | | | performed at [facility], [address] | | LAB | | | | [address], | | | | | | [place] [address] | | | | + + + + + + | Differentia | MANUALComment: Testing | | EXTERNAL | | | l Type | performed at [facility], [address] | | LAB | | | | [address], | | | | | | [place] [address] | | | | + + + + + + | Segmented | 45Comment: Testing | % | EXTERNAL | | | Neutrophils | performed at [facility], [address] | | LAB | | | Manual | [address], | | | | | | [place] [address] | | | | + + + + + + | % Bands | 1Comment: Testing | % | EXTERNAL | | | | performed at [facility], [address] | | LAB | | | | [address], | | | | | | [place] [address] | | | | + + + + + + | Lymphocytes | 35Comment: Testing | % | EXTERNAL | | | Manual | performed at [facility], [address] | | LAB | | | | [address], | | | | | | [place], [place] [address] | | | | + + + + + + | Monocytes | 11Comment: Testing | % | EXTERNAL | | | Manual | performed at [facility], [address] | | LAB | | | | [address], | | | | | | [place] [address] | | | | + + + + + + | Eosinophils | 8Comment: Testing | % | EXTERNAL | | | Manual | performed at [facility], [address] | | LAB | | | | [address], | | | | | | [place] [address] | | | | + + + + + + | Absolute | 3.85Comment: Testing | 1.90 - 7.40 | EXTERNAL | | | Neutrophils | performed at [facility], [address] | K/uL | LAB | | | | [address], | | | | | | [place] [address] | | | | + + + + + + | Bands | 0.09Comment: Testing | 0.00 - 0.20 | EXTERNAL | | | Manual | performed at [facility], [address] | K/uL | LAB | | | | [address], | | | | | | [place] [address] | | | | + + + + + + | Absolute | 3.01Comment: Testing | 1.00 - 3.90 | EXTERNAL | | | Lymphocytes | performed at [facility], [address] | K/uL | LAB | | | | [address], | | | | | | [place] [address] | | | | + + + + + + | Absolute | 0.95 (H)Comment: Testing | 0.00 - 0.80 | EXTERNAL | | | Monocytes | performed at [facility], [address] | K/uL | LAB | | | | [address], | | | | | | [place] [address] | | | | + + + + + + | Absolute | 0.69 (H)Comment: Testing | 0.00 - 0.50 | EXTERNAL | | | Eosinophils | performed at [facility], [address] | K/uL | LAB | | | | [address], | | | | | | [place] [address] | | | | + + + + + + | RBC | 2+Comment: MACRONORMAL | | EXTERNAL | | | Morphology | PLT MORPHTesting | | LAB | | | | performed at [facility], [address] | | | | | | [address], | | | | | | [place] [address] | | | | | | | [...] | | | | | [place] [address] | | | | + + + [...] EXTERNAL | | | | performed at [facility], [address] | | LAB | | | | [address], | | | | | | [place] [address] | | | | + + + [...] | | | | | [place] [address] | | | | + + + + + + | K | 3.2 (L)Comment: Testing | 3.5 - 4.9 | EXTERNAL | | | | performed at [facility], [address] | mmol/L | LAB | | | | [address], | | | | | | [place] [address] | | | | + + + + + + | Cl | 103Comment: Testing | 99 - 109 mmol/L | EXTERNAL | | | | performed at [facility], [address] | | LATA | | | | [address], | | | | | | [place] [address] | | | | + + + + + + | CO2 | 31Comment: Testing | 23 - 32 mmol/L | EXTERNAL | | | | performed at [facility], [address] | | LAB | | | | [address], | | | | | | [place] [address] | | | | + + + + + + | Anion Gap | 7Comment: Testing | 5 - 20 mmol/L | EXTERNAL | | | | performed at [facility], [address] | | LAB | | | | [address], | | | | | | [place] [address] | | | | + + + + + + | Glucose, | 104 (H)Comment: Testing | 65 - 99 mg/dL | EXTERNAL | | | Fasting | performed at [facility], [address] | | LAB | | | | [address], | | | | | | [place] [address] | | | | + + + + + + | BUN | 10Comment: Testing | 8 - 25 mg/dL | EXTERNAL | | | | performed at [facility], [address] | | LAB | | | | [address], | | | | | | [place] [address] | | | | + + + + + + | Creatinine | 0.83Comment: Testing | 0.50 - 1.00 | EXTERNAL | | | | performed at [facility], [address] | mg/dL | LAB | | | | [address], | | | | | | [place] [address] | | | | + + + + + + | BUN/Creatin | 12Comment: Testing | | EXTERNAL | | | ine Ratio | performed at [facility], [address] | | LAB | | | | [address], | | | | | | [place] [address] | | | | + + + + + + | Calcium | 8.2 (L)Comment: Testing | 8.5 - 10.5 | EXTERNAL | | | | performed at [facility], [address] | mg/dL | LAB | | | | [address], | | | | | | [place] [address] | | | | + + + + + + | Protein, | 6.2 (L)Comment: Testing | 6.3 - 8.2 g/dL | EXTERNAL | | | Total | performed at [facility], [address] | | LAB | | | | [address], | | | | | | [place] [address] | | | | + + + + + + | Albumin | 2.7 (L)Comment: Testing | 3.3 - 4.8 g/dL | EXTERNAL | | | | performed at [facility], [address] | | LAB | | | | [address], | | | | | | [place] [address] | | | | + + + + + + | Globulin | 3.5Comment: Testing | 1.3 - 4.9 g/dL | EXTERNAL | | | | performed at [facility], [address] | | LAB | | | | [address], | | | | | | [place] [address] | | | | + + + + + + | A/G Ratio | 0.8 (L)Comment: Testing | 1.0 - 2.4 | EXTERNAL | | | | performed at [facility], [address] | | LAB | | | | [address], | | | | | | [place] [address] | | | | + + + + + + | Bilirubin | 0.5Comment: Testing | 0.1 - 1.5 mg/dL | EXTERNAL | | | Total | performed at [facility], [address] | | LAB | | | | [address], | | | | | | [place] [address] | | | | + + + + + + | ALP, | 98Comment: Testing | 35 - 115 U/L | EXTERNAL | | | External | performed at [facility], [address] | | LAB | | | | [address], | | | | | | [place] [address] | | | | + + + + + + | AST | 35Comment: Testing | 10 - 45 U/L | EXTERNAL | | | | performed at [facility], [address] | | LAB | | | | [address], | | | | | | [place] [address] | | | | + + + + + + | ALT | 15Comment: Testing | 10 - 65 U/L | EXTERNAL | | | | performed at [facility], [address] | | LAB | | | | [address], | | | | | | [place] [address] | | | | + + + [...] [address], | | | | | | [place] [address] | | | | + + + [...] EXTERNAL | | | | performed at [facility], [address] | | LAB | | | | [address], | | | | | | [place] [address] | | | | + + + [...] | | | B-12 | performed at [facility], [address] | pg/mL | LAB | | | | [address], | | | | | | [place] [address] | | | | + + + [...] EXTERNAL | | | | performed at [facility], [address] | K/uL | LAB [...] | | | | | [place] [address] | | | | + + + + + + | Hgb | 9.4 (L)Comment: Testing | 11.3 - 15.5 | EXTERNAL | | | | performed at [facility], [address] | g/dL | LAB | | | | [address], | | | | | | [place] [address] | | | | + + + + + + | Hematocrit, | 29.1 (L)Comment: Testing | 34.0 - 46.0 % | EXTERNAL | | | POC | performed at [facility], [address] | | LAB | | | | [address], | | | | | | [place] [address] | | | | + + + + + + | MCV | 107.3 (H)Comment: | 80.0 - 100.0 fl | EXTERNAL | | | | Testing performed at | | LAB | | | | [facility], [address] [facility] [address] | | | | | | [place] | | | | | | [address] | | | | + + + + + + | MCH | 34.6 (H)Comment: Testing | 27.0 - 34.0 pg | EXTERNAL | | | | performed at [facility], [address] | | LAB | | | | [address], | | | | | | [place] [address] | | | | + + + + + + | MCHC | 32.2Comment: Testing | 32.0 - 35.5 | EXTERNAL | | | | performed at [facility], [address] | g/dL | LAB | | | | [address], | | | | | | [place] [address] | | | | + + + + + + | RDW-CV | 57.3 (H)Comment: Testing | 37 - 53 fl | EXTERNAL | | | | performed at [facility], [address] | | LAB | | | | [address], | | | | | | [place] [address] | | | | + + + + + + | Platelet | 174Comment: Testing | 150 - 400 K/uL | EXTERNAL | | | Count | performed at [facility], [address] | | LAB | | | Plasma | [address], | | | | | | [place] [address] | | | | + + + + + + | MPV | 10.9Comment: Testing | fl | EXTERNAL | | | | performed at [facility], [address] | | LAB | | | | [address], | | | | | | [place] [address] | | | | + + + + + + | Differentia | MANUALComment: Testing | | EXTERNAL | | | l Type | performed at [facility], [address] | | LAB | | | | [address], | | | | | | [place], [place] [address] | | | | + + + + + + | Segmented | 45Comment: Testing | % | EXTERNAL | | | Neutrophils | performed at [facility], [address] | | LAB | | | Manual | [address], | | | | | | [place], [place] [address] | | | | + + + + + + | % Bands | 1Comment: Testing | % | EXTERNAL | | | | performed at [facility], [address] | | LAB | | | | [address], | | | | | | [place], [place] [address] | | | | + + + + + + | Lymphocytes | 34Comment: Testing | % | EXTERNAL | | | Manual | performed at [facility], [address] | | LAB | | | | [address], | | | | | | [place] [address] | | | | + + + + + + | Monocytes | 11Comment: Testing | % | EXTERNAL | | | Manual | performed at [facility], [address] | | LAB | | | | [address], | | | | | | [place] [address] | | | | + + + + + + | Eosinophils | 9Comment: Testing | % | EXTERNAL | | | Manual | performed at [facility], [address] | | LAB | | | | [address], | | | | | | [place] [address] | | | | + + + + + + | Absolute | 3.77Comment: Testing | 1.90 - 7.40 | EXTERNAL | | | Neutrophils | performed at [facility], [address] | K/uL | LAB | | | | [address], | | | | | | [place] [address] | | | | + + + + + + | Bands | 0.08Comment: Testing | 0.00 - 0.20 | EXTERNAL | | | Manual | performed at [facility], [address] | K/uL | LAB | | | | [address], | | | | | | [place] [address] | | | | + + + + + + | Absolute | 2.84Comment: Testing | 1.00 - 3.90 | EXTERNAL | | | Lymphocytes | performed at [facility], [address] | K/uL | LAB | | | | [address], | | | | | | [place] [address] | | | | + + + + + + | Absolute | 0.92 (H)Comment: Testing | 0.00 - 0.80 | EXTERNAL | | | Monocytes | performed at [facility], [address] | K/uL | LAB | | | | [address], | | | | | | [place] [address] | | | | + + + + + + | Absolute | 0.75 (H)Comment: Testing | 0.00 - 0.50 | EXTERNAL | | | Eosinophils | performed at [facility], [address] | K/uL | LAB | | | | [address], | | | | | | [place] [address] | | | | + + + + + + | RBC | NORMAL PLT MORPHComment: | | EXTERNAL | | | Morphology | NORMAL RBC MORPHTesting | | LAB | | | | performed at [facility], [address] | | | | | | [address], | | | | | | [place] [address] | | | | + + + [...] EXTERNAL | | | | performed at [facility], [address] | | LAB | | | | [address], | | | | | | [place] [address] | | | | + + + [...] | | | | | [place] [address] | | | | + + + [...] | | | | | [place] [address] | | | | + + + + + + | K | 3.8Comment: Testing | 3.5 - 4.9 | EXTERNAL | | | | performed at [facility], [address] | mmol/L | LAB | | | | [address], | | | | | | [place] [address] | | | | + + + + + + | Cl | 111 (H)Comment: Testing | 99 - 109 mmol/L | EXTERNAL | | | | performed at [facility], [address] | | LAB | | | | [address], | | | | | | [place] [address] | | | | + + + + + + | CO2 | 25Comment: Testing | 23 - 32 mmol/L | EXTERNAL | | | | performed at [facility], [address] | | LAB | | | | [address], | | | | | | [place] [address] | | | | + + + + + + | Anion Gap | 5Comment: Testing | 5 - 20 mmol/L | EXTERNAL | | | | performed at [facility], [address] | | LAB | | | | [address], | | | | | | [place] [address] | | | | + + + + + + | Glucose, | 112 (H)Comment: Testing | 65 - 99 mg/dL | EXTERNAL | | | Fasting | performed at [facility], [address] | | LAB | | | | [address], | | | | | | [place] [address] | | | | + + + + + + | BUN | 13Comment: Testing | 8 - 25 mg/dL | EXTERNAL | | | | performed at [facility], [address] | | LAB | | | | [address], | | | | | | [place] [address] | | | | + + + + + + | Creatinine | 0.74Comment: Testing | 0.50 - 1.00 | EXTERNAL | | | | performed at [facility], [address] | mg/dL | LAB | | | | [address], | | | | | | [place] [address] | | | | + + + + + + | BUN/Creatin | 18Comment: Testing | | EXTERNAL | | | ine Ratio | performed at [facility], [address] | | LAB | | | | [address], | | | | | | [place] [address] | | | | + + + + + + | Calcium | 8.0 (L)Comment: Testing | 8.5 - 10.5 | EXTERNAL | | | | performed at [facility], [address] | mg/dL | LAB | | | | [address], | | | | | | [place] [address] | | | | + + + + + + | Protein, | 5.9 (L)Comment: Testing | 6.3 - 8.2 g/dL | EXTERNAL | | | Total | performed at [facility], [address] | | LAB | | | | [address], | | | | | | [place] [address] | | | | + + + + + + | Albumin | 2.6 (L)Comment: Testing | 3.3 - 4.8 g/dL | EXTERNAL | | | | performed at [facility], [address] | | LAB | | | | [address], | | | | | | [place] [address] | | | | + + + + + + | Globulin | 3.3Comment: Testing | 1.3 - 4.9 g/dL | EXTERNAL | | | | performed at [facility], [address] | | LAB | | | | [address], | | | | | | [place] [address] | | | | + + + + + + | A/G Ratio | 0.8 (L)Comment: Testing | 1.0 - 2.4 | EXTERNAL | | | | performed at [facility], [address] | | LAB | | | | [address], | | | | | | [place] [address] | | | | + + + + + + | Bilirubin | 0.4Comment: Testing | 0.1 - 1.5 mg/dL | EXTERNAL | | | Total | performed at [facility], [address] | | LAB | | | [address], | | | | | | [place] [address] | | | | + + + + + + | ALP, | 93Comment: Testing | 35 - 115 U/L | EXTERNAL | | | External | performed at [facility], [address] | | LAB | | | | [address], | | | | | | [place] [address] | | | | + + + + + + | AST | 23Comment: Testing | 10 - 45 U/L | EXTERNAL | | | | performed at [facility], [address] | | LAB | | | | [address], | | | | | | [place] [address] | | | | + + + + + + | ALT | 14Comment: Testing | 10 - 65 U/L | EXTERNAL | | | | performed at [facility], [address] | | LAB | | | | [address], | | | | | | [place] [address] | | | | + + + [...] | | | | | [place] [address] | | | | + + [...] EXTERNAL | | | | performed at [facility], [address] | K/uL | LAB | | | | [address], | | | | | | [place] [address] | | | | + + + + + + | RED CELL | 2.78 (L)Comment: Testing | 3.70 - 5.10 | EXTERNAL | | | COUNT | performed at [facility], [address] | M/uL | LAB | | | | [address], | | | | | | [place] [address] | | | | + + + + + + | Hgb | 9.7 (L)Comment: Testing | 11.3 - 15.5 | EXTERNAL | | | | performed at [facility], [address] | g/dL | LAB | | | | [address], | | | | | | [place] [address] | | | | + + + + + + | Hematocrit, | 29.9 (L)Comment: Testing | 34.0 - 46.0 % | EXTERNAL | | | POC | performed at [facility], [address] | | LAB | | | | [address], | | | | | | [place] [address] | | | | + + + + + + | MCV | 107.5 (H)Comment: | 80.0 - 100.0 fl | EXTERNAL | | | | Testing performed at | | LAB | | | | [facility], [address] [facility] [address] | | | | | | [place] | | | | | | [address] | | | | + + + + + + | MCH | 34.9 (H)Comment: Testing | 27.0 - 34.0 pg | EXTERNAL | | | | performed at [facility], [address] | | LAB | | | | [address], | | | | | | [place] [address] | | | | + + + + + + | MCHC | 32.5Comment: Testing | 32.0 - 35.5 | EXTERNAL | | | | performed at [facility], [address] | g/dL | LAB | | | | [address], | | | | | | [place] [address] | | | | + + + + + + | RDW-CV | 57.3 (H)Comment: Testing | 37 - 53 fl | EXTERNAL | | | | performed at [facility], [address] | | LAB | | | | [address], | | | | | | [place] [address] | | | | + + + + + + | Platelet | 162Comment: Testing | 150 - 400 K/uL | EXTERNAL | | | Count | performed at [facility], [address] | | LAB | | | Plasma | [address], | | | | | | [place] [address] | | | | + + + + + + | MPV | 11.6Comment: Testing | fl | EXTERNAL | | | | performed at [facility], [address] | | LAB | | | | [address], | | | | | | [place], [place] [address] | | | | + + + + + + | Differentia | MANUALComment: Testing | | EXTERNAL | | | l Type | performed at [facility], [address] | | LAB | | | | [address], | | | | | | [place], [place] [address] | | | | + + + + + + | Segmented | 31Comment: Testing | % | EXTERNAL | | | Neutrophils | performed at [facility], [address] | | LAB | | | Manual | [address], | | | | | | [place], [place] [address] | | | | + + + + + + | Lymphocytes | 52Comment: Testing | % | EXTERNAL | | | Manual | performed at [facility], [address] | | LAB | | | | [address], | | | | | | [place] [address] | | | | + + + + + + | Monocytes | 11Comment: Testing | % | EXTERNAL | | | Manual | performed at [facility], [address] | | LAB | | | | [address], | | | | | | [place] [address] | | | | + + + + + + | Eosinophils | 6Comment: Testing | % | EXTERNAL | | | Manual | performed at [facility], [address] | | LAB | | | | [address], | | | | | | [place] [address] | | | | + + + + + + | Absolute | 3.19Comment: Testing | 1.90 - 7.40 | EXTERNAL | | | Neutrophils | performed at [facility], [address] | K/uL | LAB | | | | [address], | | | | | | [place] [address] | | | | + + + + + + | Absolute | 5.36 (H)Comment: Testing | 1.00 - 3.90 | EXTERNAL | | | Lymphocytes | performed at [facility], [address] | K/uL | LAB | | | | [address], | | | | | | [place] [address] | | | | + + + + + + | Absolute | 1.13 (H)Comment: Testing | 0.00 - 0.80 | EXTERNAL | | | Monocytes | performed at [facility], [address] | K/uL | LAB | | | | [address], | | | | | | [place] [address] | | | | + + + + + + | Absolute | 0.62 (H)Comment: Testing | 0.00 - 0.50 | EXTERNAL | | | Eosinophils | performed at [facility], [address] | K/uL | LAB | | | | [address], | | | | | | [place] [address] | | | | + + + + + + | RBC | 2+Comment: MACRONORMAL | | EXTERNAL | | | Morphology | PLT MORPHTesting | | LAB | | | | performed at [facility], [address] | | | | | | [address], | | | | | | [place] [address] | | | | | | | [...] EXTERNAL | | | | performed at [facility], [address] | | LAB | | | | [address], | | | | | | [place] [address] | | | | + + + [...] EXTERNAL | | | | performed at [facility], [address] | | LAB | | | | [address], | | | | | | [place] [id number] | | | | + + + [...] | | | | | [place] [id number] | | | | + + + + + + | K | 4.2Comment: Testing | 3.5 - 4.9 | EXTERNAL | | | | performed at [facility], [address] | mmol/L | LAB | | | | [address], | | | | | | [place] [address] | | | | + + + + + + | Cl | 112 (H)Comment: Testing | 99 - 109 mmol/L | EXTERNAL | | | | performed at [facility], [address] | | LAB | | | | [address], | | | | | | [place] [address] | | | | + + + + + + | CO2 | 27Comment: Testing | 23 - 32 mmol/L | EXTERNAL | | | | performed at [facility], [address] | | LAB | | | | [address], | | | | | | [place] [address] | | | | + + + + + + | Anion Gap | 4 (L)Comment: Testing | 5 - 20 mmol/L | EXTERNAL | | | | performed at [facility], [address] | | LAB | | | | [address], | | | | | | [place] [address] | | | | + + + + + + | Glucose, | 94Comment: Testing | 65 - 99 mg/dL | EXTERNAL | | | Fasting | performed at [facility], [address] | | LAB | | | | [address], | | | | | | [place] [address] | | | | + + + + + + | BUN | 19Comment: Testing | 8 - 25 mg/dL | EXTERNAL | | | | performed at [facility], [address] | | LAB | | | | [address], | | | | | | [place] [address] | | | | + + + + + + | Creatinine | 1.01 (H)Comment: Testing | 0.50 - 1.00 | EXTERNAL | | | | performed at [facility], [address] | mg/dL | LAB | | | | [address], | | | | | | [place] [address] | | | | + + + + + + | BUN/Creatin | 19Comment: Testing | | EXTERNAL | | | ine Ratio | performed at [facility], [address] | | LAB | | | | [address], | | | | | | [place] [address] | | | | + + + + + + | Calcium | 8.1 (L)Comment: Testing | 8.5 - 10.5 | EXTERNAL | | | | performed at [facility], [address] | mg/dL | LAB | | | | [address], | | | | | | [place] [address] | | | | + + + + + + | Protein, | 5.9 (L)Comment: Testing | 6.3 - 8.2 g/dL | EXTERNAL | | | Total | performed at [facility], [address] | | LAB | | | | [address], | | | | | | [place] [address] | | | | + + + + + + | Albumin | 2.5 (L)Comment: Testing | 3.3 - 4.8 g/dL | EXTERNAL | | | | performed at [facility], [address] | | LAB | | | | [address], | | | | | | [place] [address] | | | | + + + + + + | Globulin | 3.4Comment: Testing | 1.3 - 4.9 g/dL | EXTERNAL | | | | performed at [facility], [address] | | LAB | | | | [address], | | | | | | [place] [address] | | | | + + + + + + | A/G Ratio | 0.7 (L)Comment: Testing | 1.0 - 2.4 | EXTERNAL | | | | performed at [facility], [address] | | LAB | | | | [address], | | | | | | [place] [address] | | | | + + + + + + | Bilirubin | 0.3Comment: Testing | 0.1 - 1.5 mg/dL | EXTERNAL | | | Total | performed at [facility], [address] | | LAB | | | | [address], | | | | | | [place] [address] | | | | + + + + + + | ALP, | 98Comment: Testing | 35 - 115 U/L | EXTERNAL | | | External | performed at [facility], [address] | | LAB | | | | [address], | | | | | | [place] [address] | | | | + + + + + + | AST | 24Comment: Testing | 10 - 45 U/L | EXTERNAL | | | | performed at [facility], [address] | | LAB | | | | [address], | | | | | | [place] [address] | | | | + + + + + + | ALT | 14Comment: Testing | 10 - 65 U/L | EXTERNAL | | | | performed at [facility], [address] | | LAB | | | | [facility], | | | | | | [place] [address] | | | | + + + [...] W | | | | | | [facility], | | | | | | [place] [address] | | | | + + + [...] [place] | | | | | | [address] | | | | + + +---- + + + | RED CELL | 2.93 (L)Comment: Testing | 3.7 0 - 5.10 | EXTERNAL | | | COUNT | performed at [facility], [address] | M/u L | LAB | | | | [address], | | | | | | [place] [address] | | | | + + +---- + + + | Hgb | 10.2 (L)Comment: Testing | 11. 3 - 15.5 | EXTERNAL | | | | performed at [facility], [address] | g/d L | LAB | | | | [address], | | | | | | [place] [address] | | | | + + +---- + + + | Hematocrit, | 31.6 (L)Comment: Testing | 34. 0 - 46.0 % | EXTERNAL | | | POC | performed at [facility], [address] | | LAB | | | | [address], | | | | | | [place] [address] | | | | + + +---- + + + | MCV | 107.8 (H)Comment: | 80. 0 - 100.0 fl | EXTERNAL | | | | Testing performed at | | LAB | | | | [facility], [address] | | | | | | [place] | | | | | | [address] | | | | + + +---- + + + | MCH | 34.8 (H)Comment: Testing | 27. 0 - 34.0 pg | EXTERNAL | | | | performed at [facility], [address] | | LAB | | | | [address], | | | | | | [place] [address] | | | | + + +---- + + + | MCHC | 32.3Comment: Testing | 32. 0 - 35.5 | EXTERNAL | | | | performed at [facility], [address] | g/d L | LAB | | | | [address], | | | | | | [place] [address] | | | | + + +---- + + + | RDW-CV | 57.3 (H)Comment: Testing | 37 - 53 fl | EXTERNAL | | | | performed at [facility], [address] | | LAB | | | | [address], | | | | | | [place] [address] | | | | + + +---- + + + | Platelet | 146 (L)Comment: Testing | 150 - 400 K/uL | EXTERNAL | | | Count | performed at [facility], [address] | | LAB | | | Plasma | [address], | | | | | | [place] [address] | | | | + + +---- + + + | MPV | 11.2Comment: Testing | fl | EXTERNAL | | | | performed at [facility], [address] | | LAB | | | | [address], | | | | | | [place] [address] | | | | + + +---- + + + | Differentia | MANUALComment: Testing | | EXTERNAL | | | l Type | performed at [facility], [address] | | LAB | | | | [address], | | | | | | [place] [address] | | | | + + +---- + + + | Segmented | 58Comment: Testing | % | EXTERNAL | | | Neutrophils | performed at [facility], [address] | | LAB | | | Manual | [address], | | | | | | [place] [address] | | | | + + +---- + + + | % Bands | 20Comment: Testing | % | EXTERNAL | | | | performed at [facility], [address] | | LAB | | | | [address], | | | | | | [place] [address] | | | | + + +---- + + + | Lymphocytes | 13Comment: Testing | % | EXTERNAL | | | Manual | performed at [facility], [address] | | LAB | | | | [address], | | | | | | [place] [address] | | | | + + +---- + + + | Monocytes | 7Comment: Testing | % | EXTERNAL | | | Manual | performed at [facility], [address] | | LAB | | | | [address], | | | | | | [place] [address] | | | | + + +---- + + + | Eosinophils | 2Comment: Testing | % | EXTERNAL | | | Manual | performed at [facility], [address] | | LAB | | | | [address], | | | | | | [place] [address] | | | | + + +---- + + + | Absolute | 9.23 (H)Comment: Testing | 1.9 0 - 7.40 | EXTERNAL | | | Neutrophils | performed at [facility], [address] | K/u L | LAB | | | | [address], | | | | | | [place] [address] | | | | + + +---- + + + | Bands | 3.18 (H)Comment: Testing | 0.0 0 - 0.20 | EXTERNAL | | | Manual | performed at [facility], [address] | K/u L | LAB | | | | [address], | | | | | | [place] [address] | | | | + + +---- + + + | Absolute | 2.07Comment: Testing | 1.0 0 - 3.90 | EXTERNAL | | | Lymphocytes | performed at [facility], [address] | K/u L | LAB | | | | [address], | | | | | | [place] [address] | | | | + + +---- + + + | Absolute | 1.11 (H)Comment: Testing | 0.0 0 - 0.80 | EXTERNAL | | | Monocytes | performed at [facility], [address] | K/u L | LAB | | | | [address], | | | | | | [place] [address] | | | | + + +---- + + + | Absolute | 0.32Comment: Testing | 0.0 0 - 0.50 | EXTERNAL | | | Eosinophils | performed at [facility], [address] | K/u L | LAB | | | | [address] [place], | | | | | | [place] [address] | | | | + + +---- + + + | RBC | 2+Comment: | | EXTERNAL | | | Morphology | MACRO1+ANISONORMAL PLT | | LAB | | | | MORPHTesting performed | | | | | | at [facility], [address] | | | | | | [employer], | | | | | | [place] [address] | | | | | |Testing performed at [facility], [address] [place] [address] | | | | | | | [...] EXTERNAL | | | | performed at [facility], [address] | | LAB | | | | [address], | | | | | | [place] [address] | | | | + + + [...] | | | | | [place] [address] | | | | + + + [...] | | | | | [place] [address] | | | | + + + [...] | | | | | [place] [address] | | | | + + + + + + | CO2 | 24Comment: Testing | 23 - 32 mmol/L | EXTERNAL | | | | performed at [facility], [address] | | LAB | | | | [address], | | | | | | [place] [address] | | | | + + + + + + | Anion Gap | 8Comment: Testing | 5 - 20 mmol/L | EXTERNAL | | | | performed at [facility], [address] | | LAB | | | | [address], | | | | | | [place] [address] | | | | + + + + + + | Glucose, | 98Comment: Testing | 65 - 99 mg/dL | EXTERNAL | | | Fasting | performed at [facility], [address] | | LAB | | | | [address], | | | | | | [place] [address] | | | | + + + + + + | BUN | 25Comment: Testing | 8 - 25 mg/dL | EXTERNAL | | | | performed at [facility], [address] | | LAB | | | | [address], | | | | | | [place] [address] | | | | + + + + + + | Creatinine | 1.39 (H)Comment: Testing | 0.50 - 1.00 | EXTERNAL | | | | performed at [facility], [address] | mg/dL | LAB | | | | [address], | | | | | | [place] [address] | | | | + + + + + + | BUN/Creatin | 18Comment: Testing | | EXTERNAL | | | ine Ratio | performed at [facility], [address] | | LAB | | | [address], | | | | | | [place] [address] | | | | + + + + + + | Calcium | 8.2 (L)Comment: Testing | 8.5 - 10.5 | EXTERNAL | | | | performed at [facility], [address] | mg/dL | LAB | | | | [address], | | | | | | [place] [address] | | | | + + + + + + | Protein, | 6.1 (L)Comment: Testing | 6.3 - 8.2 g/dL | EXTERNAL | | | Total | performed at [facility], [address] | | LAB | | | | [address], | | | | | | [place] [address] | | | | + + + + + + | Albumin | 2.4 (L)Comment: Testing | 3.3 - 4.8 g/dL | EXTERNAL | | | | performed at [facility], [address] | | LAB | | | | [address], | | | | | | [place] [address] | | | | + + + + + + | Globulin | 3.7Comment: Testing | 1.3 - 4.9 g/dL | EXTERNAL | | | | performed at [facility], [address] | | LAB | | | | [address], | | | | | | [place] [address] | | | | + + + + + + | A/G Ratio | 0.6 (L)Comment: Testing | 1.0 - 2.4 | EXTERNAL | | | | performed at [facility], [address] | | LAB | | | | [address], | | | | | | [place] [address] | | | | + + + + + + | Bilirubin | 0.4Comment: Testing | 0.1 - 1.5 mg/dL | EXTERNAL | | | Total | performed at [facility], [address] | | LAB | | | | [address], | | | | | | [place] [address] | | | | + + + [...] | | | | | [place] [address] | | | | + + + + + + | ALT | 14Comment: Testing | 10 - 65 U/L | EXTERNAL | | | | performed at [facility], [address] | | LAB | | | | [address], | | | | | | [place] [address] | | | | + + + [...] | | | | | | at [facility], [address] | | | | | | [address], | | | | | | [place] [address] | | | | + + + [...] | | | | [facility], [address] [facility] | | | | | | [place] | | | | | | [address] | | | | + + + + + + | RED CELL | 3.12 (L)Comment: Testing | 3.70 - 5.10 | EXTERNAL | | | COUNT | performed at [facility], [address] | M/uL | LAB | | | | [address] [place], | | | | | | [place] [address] | | | | + + + + + + | Hgb | 10.8 (L)Comment: Testing | 11.3 - 15.5 | EXTERNAL | | | | performed at [facility], [address] | g/dL | LAB | | | | [address], | | | | | | [place] [address] | | | | + + + + + + | Hematocrit, | 33.7 (L)Comment: Testing | 34.0 - 46.0 % | EXTERNAL | | | POC | performed at [facility], [address] | | LAB | | | | [address] [place], | | | | | | [place] [address] | | | | + + + + + + | MCV | 108.0 (H)Comment: | 80.0 - 100.0 fl | EXTERNAL | | | | Testing performed at | | LAB | | | | [facility], [address] | | | | | | [place] | | | | | | [address] | | | | + + + + + + | MCH | 34.7 (H)Comment: Testing | 27.0 - 34.0 pg | EXTERNAL | | | | performed at [facility], [address] | | LAB | | | | [address] [place], | | | | | | [place] [address] | | | | + + + + + + | MCHC | 32.1Comment: Testing | 32.0 - 35.5 | EXTERNAL | | | | performed at [facility], [address] | g/dL | LAB | | | | [address], | | | | | | [place] [address] | | | | + + + + + + | RDW-CV | 55.6 (H)Comment: Testing | 37 - 53 fl | EXTERNAL | | | | performed at [facility], [address] | | LAB | | | | [address], | | | | | | [place] [address] | | | | + + + + + + | Platelet | 153Comment: Testing | 150 - 400 K/uL | EXTERNAL | | | Count | performed at [facility], [address] | | LAB | | | Plasma | [address], | | | | | | [place] [address] | | | | + + + + + + | MPV | 11.2Comment: Testing | fl | EXTERNAL | | | | performed at [facility], [address] | | LAB | | | | [address], | | | | | | [place], [place] [address] | | | | + + + + + + | Differentia | MANUALComment: Testing | | EXTERNAL | | | l Type | performed at [facility], [address] | | LAB | | | | [address], | | | | | | [place], [place] [address] | | | | + + + + + + | Segmented | 64Comment: Testing | % | EXTERNAL | | | Neutrophils | performed at [facility], [address] | | LAB | | | Manual | [address], | | | | | | [place] [address] | | | | + + + + + + | % Bands | 15Comment: Testing | % | EXTERNAL | | | | performed at [facility], [address] | | LAB | | | | [address], | | | | | | [place] [address] | | | | + + + + + + | % | 2Comment: Testing | % | EXTERNAL | | | Metamyelocy | performed at [facility], [address] | | LAB | | | [address] | [address], | | | | | | [place] [address] | | | | + + + + + + | Lymphocytes | 12Comment: Testing | % | EXTERNAL | | | Manual | performed at [facility], [address] | | LAB | | | | [address], | | | | | | [place] [address] | | | | + + + + + + | Monocytes | 6Comment: Testing | % | EXTERNAL | | | Manual | performed at [facility], [address] | | LAB | | | | [address], | | | | | | [place] [address] | | | | + + + + + + | Eosinophils | 1Comment: Testing | % | EXTERNAL | | | Manual | performed at [facility], [address] | | LAB | | | | [address] [place], | | | | | | [place] [address] | | | | + + + + + + | Absolute | 11.48 (H)Comment: | 1.90 - 7.40 | EXTERNAL | | | Neutrophils | Testing performed at | K/uL | LAB | | | | [facility], [address] [facility] [address] | | | | | | [place] | | | | | | [address] | | | | + + + + + + | Bands | 2.69 (H)Comment: Testing | 0.00 - 0.20 | EXTERNAL | | | Manual | performed at [facility], [address] | K/uL | LAB | | | | [address], | | | | | | [place] [address] | | | | + + + + + + | Absolute | 0.36 (H)Comment: Testing | K/uL | EXTERNAL | | | Metamyelocy | performed at [facility], [address] | | LAB | | | irma | [address] [place], | | | | | | [place] [address] | | | | + + + + + + | Absolute | 2.15Comment: Testing | 1.00 - 3.90 | EXTERNAL | | | Lymphocytes | performed at [facility], [address] | K/uL | LAB | | | | [address], | | | | | | [place] [address] | | | | + + + + + + | Absolute | 1.08 (H)Comment: Testing | 0.00 - 0.80 | EXTERNAL | | | Monocytes | performed at [facility], [address] | K/uL | LAB | | | | [address], | | | | | | [place] [address] | | | | + + + + + + | Absolute | 0.18Comment: Testing | 0.00 - 0.50 | EXTERNAL | | | Eosinophils | performed at [facility], [address] | K/uL | LAB | | | | [address], | | | | | | [place] [address] | | | | + + + + + + | RBC | 2+Comment: MACRONORMAL | | EXTERNAL | | | Morphology | PLT MORPHTesting | | LAB | | | | performed at [facility], [address] | | | | | | [address], | | | | | | [place] [address] | | | | | | | [...] EXTERNAL | | | | performed at [facility];[address] | mmol/L | LAB | | | | [address];[place] | | | | | | [address] | | | | + + + + + + | K | 3.8Comment: Testing | 3.5 - 4.9 | EXTERNAL | | | | performed at [facility];[address] | mmol/L | LAB | | | | [address];[place] | | | | | | [address] | | | | + + + + + + | Cl | 107Comment: Testing | 99 - 109 mmol/L | EXTERNAL | | | | performed at [facility];[address] | | LAB | | | | [address];[place] | | | | | | [address] | | | | + + + + + + | CO2 | 26Comment: Testing | 23 - 32 mmol/L | EXTERNAL | | | | performed at [facility];[address] | | LAB | | | | [address];[place] | | | | | | [address] | | | | + + + + + + | Anion Gap | 12Comment: Testing | 5 - 20 mmol/L | EXTERNAL | | | | performed at [facility];[address] | | LAB | | | | [address];[place] | | | | | | [address] | | | | + + + + + + | Glucose, | 127 (H)Comment: Testing | 65 - 99 mg/dL | EXTERNAL | | | Fasting | performed at [facility];[address] | | LAB | | | | [address];[place] | | | | | | [address] | | | | + + + + + + | BUN | 28 (H)Comment: Testing | 8 - 25 mg/dL | EXTERNAL | | | | performed at [facility];[address] | | LAB | | | | [address];[place] | | | | | | [address] | | | | + + + + + + | Creatinine | 1.8 (H)Comment: Testing | 0.50 - 1.00 | EXTERNAL | | | | performed at [facility];[address] | mg/dL | LAB | | | | [address];[place] | | | | | | [address] | | | | + + + + + + | BUN/Creatin | 16Comment: Testing | | EXTERNAL | | | ine Ratio | performed at [facility];[address] | | LAB | | | | [address];[place] | | | | | | [address] | | | | + + + + + + | Calcium | 7.6 (L)Comment: Testing | 8.5 - 10.5 | EXTERNAL | | | | performed at [facility];[address] | mg/dL | LAB | | | | [address];[place] | | | | | | [address] | | | | + + [...] | | | | | | at [facility];[address] | [address];[place] [address] | | | | + + + [...] | | | | | | at [facility];[address] [place] [address] | | | | | | [facility];[place] [address] | | | | + + [...] LAB | | | | [facility], [address] [facility] | | | | | | [place] | | | | | | [address] | | | | + + +---- + + + | RED CELL | 3.07 (L)Comment: Testing | 3.7 0 - 5.10 | EXTERNAL | | | COUNT | performed at [facility], [address] | M/u L | LAB | | | | [address] [place], | | | | | | [place] [address] | | | | + + +---- + + + | Hgb | 10.8 (L)Comment: Testing | 11. 3 - 15.5 | EXTERNAL | | | | performed at [facility], [address] | g/d L | LAB | | | | [address] [place], | | | | | | [place] [address] | | | | + + +---- + + + | Hematocrit, | 32.7 (L)Comment: Testing | 34. 0 - 46.0 % | EXTERNAL | | | POC | performed at [facility], [address] | | LAB | | | | [address] [place], | | | | | | [place] [address] | | | | + + +---- + + + | MCV | 106.4 (H)Comment: | 80. 0 - 100.0 fl | EXTERNAL | | | | Testing performed at | | LAB | | | | [facility], [address] | | | | | | [place] | | | | | | [address] | | | | + + +---- + + + | MCH | 35.1 (H)Comment: Testing | 27. 0 - 34.0 pg | EXTERNAL | | | | performed at [facility], [address] | | LAB | | | | [address] [place], | | | | | | [place] [address] | | | | + + +---- + + + | MCHC | 33.0Comment: Testing | 32. 0 - 35.5 | EXTERNAL | | | | performed at [facility], [address] | g/d L | LAB | | | | [address], | | | | | | [place] [address] | | | | + + +---- + + + | RDW-CV | 56.0 (H)Comment: Testing | 37 - 53 fl | EXTERNAL | | | | performed at [facility], [address] | | LAB | | | | [address], | | | | | | [place] [address] | | | | + + +---- + + + | Platelet | 151Comment: Testing | 150 - 400 K/uL | EXTERNAL | | | Count | performed at [facility], [address] | | LAB | | | Plasma | [address], | | | | | | [place] [address] | | | | + + +---- + + + | MPV | 11.7Comment: Testing | fl | EXTERNAL | | | | performed at [facility], [address] | | LAB | | | | [address] [place], | | | | | | [place] [address] | | | | + + +---- + + + | Differentia | MANUALComment: Testing | | EXTERNAL | | | l Type | performed at [facility], [address] | | LAB | | | | [address] [place], | | | | | | [place] [address] | | | | + + +---- + + + | Segmented | 57Comment: Testing | % | EXTERNAL | | | Neutrophils | performed at [facility], [address] | | LAB | | | Manual | [address] [place], | | | | | | [place] [address] | | | | + + +---- + + + | % Bands | 26Comment: Testing | % | EXTERNAL | | | | performed at [facility], [address] | | LAB | | | | [address] [place], | | | | | | [place] [address] | | | | + + +---- + + + | % | 4Comment: Testing | % | EXTERNAL | | | Metamyelocy | performed at [facility], [address] | | LAB | | | irma | [address] [place], | | | | | | [place] [address] | | | | + + +---- + + + | Lymphocytes | 9Comment: Testing | % | EXTERNAL | | | Manual | performed at [facility], [address] | | LAB | | | | [address] [place], | | | | | | [place] [address] | | | | + + +---- + + + | Monocytes | 4Comment: Testing | % | EXTERNAL | | | Manual | performed at [facility], [address] | | LAB | | | | [address] [place], | | | | | | [place] [address] | | | | + + +---- + + + | Absolute | 10.53 (H)Comment: | 1.9 0 - 7.40 | EXTERNAL | | | Neutrophils | Testing performed at | K/u L | LAB | | | | [facility], [address] | | | | | | [place] | | | | | | [address] | | | | + + +---- + + + | Bands | 4.80 (H)Comment: Testing | 0.0 0 - 0.20 | EXTERNAL | | | Manual | performed at [facility], [address] | K/u L | LAB | | | | [address] [place], | | | | | | [place] [address] | | | | + + +---- + + + | Absolute | 0.74 (H)Comment: Testing | K/u L | EXTERNAL | | | Metamyelocy | performed at [facility], [address] | | LAB | | | irma | [address] [place], | | | | | | [place] [address] | | | | + + +---- + + + | Absolute | 1.66Comment: Testing | 1.0 0 - 3.90 | EXTERNAL | | | Lymphocytes | performed at [facility], [address] | K/u L | LAB | | | | [address], | | | | | | [place] [address] | | | | + + +---- + + + | Absolute | 0.74Comment: Testing | 0.0 0 - 0.80 | EXTERNAL | | | Monocytes | performed at [facility], [address] | K/u L | LAB | | | [address], | | | | | | [place] [address] | | | | + + +---- + + + | RBC | 2+Comment: | | EXTERNAL | | | Morphology | MACRO1+ANISONORMAL PLT | | LAB | | | | MORPHTesting performed | | | | | | at [facility], [address] | | | | | | [facility], | | | | | | [place] [address] | | | | | |Testing performed at [facility], [address] [facility], [place] [address] | | | | | | | [...] EXTERNAL | | | | performed at [facility];[address] | | LAB | | | | [address];[place], [place] | | | | | | [address] | | | | + + + [...] | | | | | performed at [facility];[address] | | | | | | [address];[place] | | | | | | [address] | | | | + + + [...] EXTERNAL | | | | performed at [facility];[address] | mmol/L | LAB | | | | [address];[place], [place] | | | | | | [address] | | | | + + + [...] EXTERNAL | | | | performed at [facility];888 | mmol/L | LAB | | | | [address];[place] | | | | | | [address] | | | | + + + + + + | K | 4.4Comment: SPECIMEN | 3.5 - 4.9 | EXTERNAL | | | | SLIGHTLY | mmol/L | LAB | | | | HEMOLYZEDTesting | | | | | | performed at [facility];[address] | | | | | | [address] [place] | | | | | | [address] | | | | + + + + + + | Cl | 106Comment: Testing | 99 - 109 mmol/L | EXTERNAL | | | | performed at [facility];[address] | | LAB | | | | [address];[place] | | | | | | [address] | | | | + + + + + + | CO2 | 24Comment: Testing | 23 - 32 mmol/L | EXTERNAL | | | | performed at [facility];888 | | LAB | | | | [address];[place] | | | | | | [address] | | | | + + + + + + | Anion Gap | 12Comment: Testing | 5 - 20 mmol/L | EXTERNAL | | | | performed at [facility];888 | | LAB | | | | [address];[place] | | | | | | [address] | | | | + + + + + + | Glucose, | 103 (H)Comment: Testing | 65 - 99 mg/dL | EXTERNAL | | | Fasting | performed at [facility];888 | | LAB | | | | [address];[place] | | | | | | [address] | | | | + + + + + + | BUN | 22Comment: Testing | 8 - 25 mg/dL | EXTERNAL | | | | performed at [facility];888 | | LAB | | | | [address];[place] | | | | | | [address] | | | | + + + + + + | Creatinine | 1.9 (H)Comment: Testing | 0.50 - 1.00 | EXTERNAL | | | | performed at [facility];888 | mg/dL | LAB | | | | [address];[place] | | | | | | [address] | | | | + + + + + + | BUN/Creatin | 12Comment: Testing | | EXTERNAL | | | ine Ratio | performed at [facility];[address] | | LAB | | | | [address];[place] | | | | | | [address] | | | | + + + + + + | Calcium | 7.4 (L)Comment: Testing | 8.5 - 10.5 | EXTERNAL | | | | performed at [facility];888 | mg/dL | LAB | | | | [address];[place] | | | | | | [address] | | | | + + + + + + | Protein, | 6.5Comment: Testing | 6.3 - 8.2 g/dL | EXTERNAL | | | Total | performed at [facility];[address] | | LAB | | | | [address];[place] | | | | | | [address] | | | | + + + + + + | Albumin | 2.2 (L)Comment: Testing | 3.3 - 4.8 g/dL | EXTERNAL | | | | performed at [facility];[address] | | LAB | | | | [address];[place] | | | | | | [address] | | | | + + + + + + | Globulin | 4.4Comment: Testing | 1.3 - 4.9 g/dL | EXTERNAL | | | | performed at [facility];[address] | | LAB | | | | [address];[place] | | | | | | [address] | | | | + + + + + + | A/G Ratio | 0.5 (L)Comment: Testing | 1.0 - 2.4 | EXTERNAL | | | | performed at [facility];[address] | | LAB | | | | [address];[place] | | | | | | [address] | | | | + + + + + + | Bilirubin | 0.5Comment: Testing | 0.1 - 1.5 mg/dL | EXTERNAL | | | Total | performed at [facility];[address] | | LAB | | | | [address];[place] | | | | | | [address] | | | | + + + + + + | ALP, | 148 (H)Comment: Testing | 35 - 115 U/L | EXTERNAL | | | External | performed at [facility];[address] | | LAB | | | | [address];[place] | | | | | | [address] | | | | + + + + + + | AST | 41Comment: SPECIMEN | 10 - 45 U/L | EXTERNAL | | | | SLIGHTLY | | LAB | | | | HEMOLYZEDTesting | | | | | | performed at [facility];[address] | | | | | | [address];[place] | | | | | | [address] | | | | + + + + + + | ALT | 23Comment: Testing | 10 - 65 U/L | EXTERNAL | | | | performed at [facility];888 | | LAB | | | | [address];[place] | | | | | | [address] | | | | + + + [...] | | | | | | at [facility];[address] | | | | | | [place] [address] | | | | + + + [...] WORKUP | | | Testing performed at [facility], [address], [place] | | | [address] | | + + + + +---------+ [...] EXTERNAL | | | | performed at [facility], [address] | | LAB | | | | [place], | | | | | | [place] [address] | | | | + + + [...] - 1.030 | EXTERNAL | | | [place] | performed at [facility], [address] | | LAB | | | | [address], | | | | | | [place] [address] | | | | + + + + + + | Leukocyte | SMALL (A)Comment: | | EXTERNAL | | | Esterase, | Testing performed at | | LAB | | | Urine | [facility], [address] | | | | | | [place] | | | | | | [address] | | | | + + + + + + | Nitrite, | NEGATIVEComment: Testing | | EXTERNAL | | | Urine | performed at [facility], [address] | | LAB | | | | [address], | | | | | | [place] [address] | | | | + + + + + + | Urobilinoge | 0.2Comment: Testing | mg/dL | EXTERNAL | | | n, Urine | performed at [facility], [address] | | LAB | | | | [address], | | | | | | [place] [address] | | | | + + + + + + | Protein, | 100 (A)Comment: Testing | mg/dL | EXTERNAL | | | Urine | performed at [facility], [address] | | LAB | | | | [place], | | | | | | [place] [address] | | | | + + + + + + | pH, Urine | 6.5Comment: Testing | 5.0 - 8.0 | EXTERNAL | | | | performed at [facility], [address] | | LAB | | | | [place], | | | | | | [place] [address] | | | | + + + + + + | Blood, | MODERATE (A)Comment: | | EXTERNAL | | | Urine | Testing performed at | | LAB | | | | [facility], [address] | | | | | | [place] | | | | | | [address] | | | | + + + + + + | Ketones | NEGATIVEComment: Testing | mg/dL | EXTERNAL | | | | performed at [facility], [address] | | LAB | | | | [address], | | | | | | [place] [address] | | | | + + + + + + | Bilirubin, | NEGATIVEComment: Testing | | EXTERNAL | | | Urine | performed at [facility], [address] | | LAB | | | | [address], | | | | | | [place] [address] | | | | + + + + + + | Glucose, | NEGATIVEComment: Testing | mg/dL | EXTERNAL | | | Urine | performed at [facility], [address] | | LAB | | | | [address], | | | | | | [place] [address] | | | | + + + [...] | | | | | [place] [address] | | | | + + + + + + | RBC, UA | 1-5Comment: Testing | 0 - 5 /hpf | EXTERNAL | | | | performed at [facility], [address] | | LAB | | | | [address] [place], | | | | | | [place] [address] | | | | + + + + + + | Epithelial | 0-2Comment: Testing | /lpf | EXTERNAL | | | Cells | performed at [facility], [address] | | LAB | | | | [address] [place], | | | | | | [place] [address] | | | | + + + + + + | Bacteria, | TRACE (A)Comment: | | EXTERNAL | | | UA | Testing performed at | | LAB | | | | [facility], [address] | | | | | | [place] | | | | | | [address] | | | | + + + + + + | Urinalysis | CULTURE TO | | EXTERNAL | | | Comments | FOLLOWComment: Testing | | LAB | | | | performed at [facility], [address] | | | | | | [place], | | | | | | [place] [address] | | | | + + + [...] EXTERNAL | | | | performed at [facility];[address] | mg/dL | LAB | | | | [place] [place] | | | | | | [address] | | | | + + + [...] LAB | | C.diffAbnormal Testing performed at [facility];[address] [place] [address] | | | [phone] NAP1 BI 027 NAP1 BI | | | PRESUMPTIVE NEGATIVE Detection of 027 NAP1 BI strains of C. difficile | | | is presumptive and for epidemiological purposes and not intended to | | | guide or monitor treatment for C. difficile infections. Testing | | | performed at [facility];[address] [place] [address];[place] [address] | | + + + + +---------+ [...] EXTERNAL | | | | performed at [facility];[address] | mmol/L | LAB | | | | [address];[place], [place] | | | | | | [address] | | | | + + + [...] | | | | | | at [facility];[address] | | | | | | [facility];[place] [address] | | | | + + + [...] EXTERNAL | | | | performed at [facility];[address] | | LAB | | | | [address];[place], [place] | | | | | | [address] | | | | + + + [...] | | | | | | ACUTE AL Testing | | | | | | performed at [facility];[address] | | | | | | [facility];[place], [place] | | | | | | [address] | | | | + + + [...] K/uL | LAB | | | | [facility];[address] | | | | | | [place] [address] | | | | + + + + + + | RED CELL | 3.66 (L)Comment: Testing | 3.70 - 5.10 | EXTERNAL | | | COUNT | performed at [facility];[address] | M/uL | LAB | | | | [address];[place] | | | | | | [address] | | | | + + + + + + | Hgb | 12.6Comment: Testing | 11.3 - 15.5 | EXTERNAL | | | | performed at [facility];[address] | g/dL | LAB | | | | [address];[place] | | | | | | [address] | | | | + + + + + + | Hematocrit, | 38.9Comment: Testing | 34.0 - 46.0 % | EXTERNAL | | | POC | performed at [facility];[address] | | LAB | | | | [address];[place] | | | | | | [address] | | | | + + + + + + | MCV | 106.3 (H)Comment: | 80.0 - 100.0 fl | EXTERNAL | | | | Testing performed at | | LAB | | | | [facility];[address] | | | | | | [address];[place] [address] | | | | + + + + + + | MCH | 34.3 (H)Comment: Testing | 27.0 - 34.0 pg | EXTERNAL | | | | performed at [facility];[address] | | LAB | | | | [address];[place] | | | | | | [address] | | | | + + + + + + | MCHC | 32.3Comment: Testing | 32.0 - 35.5 | EXTERNAL | | | | performed at [facility];[address] | g/dL | LAB | | | | [address];[place] | | | | | | [address] | | | | + + + + + + | RDW-CV | 54.7 (H)Comment: Testing | 37 - 53 fl | EXTERNAL | | | | performed at [facility];[address] | | LAB | | | | [address];[place] | | | | | | [address] | | | | + + + + + + | Platelet | 167Comment: Testing | 150 - 400 K/uL | EXTERNAL | | | Count | performed at [facility];[address] | | LAB | | | Plasma | [address];[place] | | | | | | [address] | | | | + + + + + + | MPV | 10.6Comment: Testing | fl | EXTERNAL | | | | performed at [facility];[address] | | LAB | | | | [address];[place] | | | | | | [address] | | | | + + + + + + | Differentia | MANUALComment: Testing | | EXTERNAL | | | l Type | performed at [facility];[address] | | LAB | | | | [address];[place] | | | | | | [address] | | | | + + + + + + | Segmented | 54Comment: Testing | % | EXTERNAL | | | Neutrophils | performed at [facility];[address] | | LAB | | | Manual | [address];[place] | | | | | | [address] | | | | + + + + + + | % Bands | 18Comment: Testing | % | EXTERNAL | | | | performed at [facility];[address] | | LAB | | | | [address];[place] | | | | | | [address] | | | | + + + + + + | Lymphocytes | 16Comment: Testing | % | EXTERNAL | | | Manual | performed at [facility];[address] | | LAB | | | | [address];[place] | | | | | | [address] | | | | + + + + + + | Monocytes | 12Comment: Testing | % | EXTERNAL | | | Manual | performed at [facility];[address] | | LAB | | | | [address];[place] | | | | | | [address] | | | | + + + + + + | Absolute | 10.69 (H)Comment: | 1.90 - 7.40 | EXTERNAL | | | Neutrophils | Testing performed at | K/uL | LAB | | | | [facility];[address] | | | | | | [address];[place] [address] | | | | + + + + + + | Bands | 3.56 (H)Comment: Testing | 0.00 - 0.20 | EXTERNAL | | | Manual | performed at [facility];[address] | K/uL | LAB | | | | [address];[place] | | | | | | [address] | | | | + + + + + + | Absolute | 3.16Comment: Testing | 1.00 - 3.90 | EXTERNAL | | | Lymphocytes | performed at [facility];[address] | K/uL | LAB | | | | [address];[place] | | | | | | [address] | | | | + + + + + + | Absolute | 2.37 (H)Comment: Testing | 0.00 - 0.80 | EXTERNAL | | | Monocytes | performed at [facility];[address] | K/uL | LAB | | | | [address];[place] | | | | | | [address] | | | | + + + + + + | Platelet | ADEQUATEComment: Testing | | EXTERNAL | | | Estimate | performed at [facility];[address] | | LAB | | | | [address];[place] | | | | | | [address] | | | | + + + + + + | RBC | NORMAL PLT MORPHComment: | | EXTERNAL | | | Morphology | 1+ANISOTesting | | LAB | | | | performed at [facility];[address] | | | | | | [address];[place] | | | | | | [address] | | | | | | | [...] EXTERNAL | | | | performed at [facility];[address] | uIU/mL | LAB | | | | [address];[place], [place] | | | | | | [address] | | | | + + + [...] EXTERNAL | | | | performed at [facility];[address] | | LAB | | | | [address];[place], [place] | | | | | | [address] | | | | + + + [...] | | LAB | | | | [facility];[address] | | | | | | [place];[place] [address] | | | | + + + [...] EXTERNAL | | | | performed at [facility];[address] | | LAB | | | | [address];[place], [place] | | | | | | [address] | | | | + + + [...] EXTERNAL | | | | performed at [facility];[address] | | LAB | | | | [address];[place] | | | | | | [address] | | | | + + + [...] EXTERNAL | | | | performed at [facility];[address] | mmol/L | LAB | | | | [address];[place] | | | | | | [address] | | | | + + + + + + | K | 3.4 (L)Comment: Testing | 3.5 - 4.9 | EXTERNAL | | | | performed at [facility];[address] | mmol/L | LAB | | | | [address];[place] | | | | | | [address] | | | | + + + + + + | Cl | 101Comment: Testing | 99 - 109 mmol/L | EXTERNAL | | | | performed at [facility];[address] | | LAB | | | | [address];[place] | | | | | | [address] | | | | + + + + + + | CO2 | 27Comment: Testing | 23 - 32 mmol/L | EXTERNAL | | | | performed at [facility];[address] | | LAB | | | | [address];[place] | | | | | | [address] | | | | + + + + + + | Anion Gap | 12Comment: Testing | 5 - 20 mmol/L | EXTERNAL | | | | performed at [facility];[address] | | LAB | | | | [address];[place] | | | | | | [address] | | | | + + + + + + | Glucose, | 106 (H)Comment: Testing | 65 - 99 mg/dL | EXTERNAL | | | Fasting | performed at [facility];[address] | | LAB | | | | [address];[place] | | | | | | [address] | | | | + + + + + + | BUN | 18Comment: Testing | 8 - 25 mg/dL | EXTERNAL | | | | performed at [facility];[address] | | LAB | | | | [address];[place] | | | | | | [address] | | | | + + + + + + | Creatinine | 1.3 (H)Comment: Testing | 0.50 - 1.00 | EXTERNAL | | | | performed at [facility];888 | mg/dL | LAB | | | | [address];[place] | | | | | | [address] | | | | + + + + + + | BUN/Creatin | 14Comment: Testing | | EXTERNAL | | | ine Ratio | performed at [facility];[address] | | LAB | | | | [address];[place] | | | | | | [address] | | | | + + + + + + | Calcium | 7.3 (L)Comment: Testing | 8.5 - 10.5 | EXTERNAL | | | | performed at [facility];888 | mg/dL | LAB | | | | [address];[place] | | | | | | [address] | | | | + + + + + + | Protein, | 7.9Comment: Testing | 6.3 - 8.2 g/dL | EXTERNAL | | | Total | performed at [facility];[address] | | LAB | | | | [address];[place] | | | | | | [address] | | | | + + + + + + | Albumin | 2.5 (L)Comment: Testing | 3.3 - 4.8 g/dL | EXTERNAL | | | | performed at [facility];[address] | | LAB | | | | [address];[place] | | | | | | [address] | | | | + + + + + + | Globulin | 5.4 (H)Comment: Testing | 1.3 - 4.9 g/dL | EXTERNAL | | | | performed at [facility];[address] | | LAB | | | | [address];[place] | | | | | | [address] | | | | + + + + + + | A/G Ratio | 0.5 (L)Comment: Testing | 1.0 - 2.4 | EXTERNAL | | | | performed at [facility];[address] | | LAB | | | | [address];[place] | | | | | | [address] | | | | + + + + + + | Bilirubin | 0.6Comment: Testing | 0.1 - 1.5 mg/dL | EXTERNAL | | | Total | performed at [facility];[address] | | LAB | | | | [address];[place] | | | | | | [address] | | | | + + + + + + | ALP, | 188 (H)Comment: Testing | 35 - 115 U/L | EXTERNAL | | | External | performed at [facility];[address] | | LAB | | | | [address];[place] | | | | | | [address] | | | | + + + + + + | AST | 51 (H)Comment: Testing | 10 - 45 U/L | EXTERNAL | | | | performed at [facility];[address] | | LAB | | | | [address];[place] | | | | | | [address] | | | | + + + + + + | ALT | 30Comment: Testing | 10 - 65 U/L | EXTERNAL | | | | performed at [facility];[address] | | LAB | | | | [address];[place] | | | | | | [address] | | | | + + + [...] | | | | | | at [facility];[address] | | | [address];[place] [address] | | | | + + + [...] Conversion - 01/05/2019 4:32 AM PDT COLE [id number] yearsXR | | CHEST 1 VIEW01/28/2015 2:40 [...]
--- OUTSIDE RECORDS SUMMARY | ~2019-06-03 | XMS | Encounter Summary ---
Demographics + + + | Address | [address] | | | [place] [address] | + + + | Home Phone [...] Team Providers + +------+ + | Care Case Assembler Name | Role | Phone | [...] | | | CONSULT | [place] | [place] [address] | | | | | | [place], [place] | Phone: | | | | | | [address] | [phone] | | | | | | Phone: | Fax: | | | | | | [phone] | [phone] | | | | | | Fax: | | | | | | | [phone] | | +--------+--------+ + + + + [...] | Dx); Kyphosis | | | | [place], | [place], [place] | deformity of spine | | | | [place] [address] | [address] | | | | | [phone] | | | +--------+---------+ + + + [...] fracture Approx. T-6 Primary biliary cirrhosis (HCC) GK (obstructive sleep apnea) No CPAP, oxygen at [...] A copy of the patient's echocardiogram from [facility] will be reviewed. CC: Yovani Santana documented in this encounter Plan of Treatment Not on filedocumented as of this encounter Results PFT PULMONARY FUNCTION TESTING ORDERS Full PFT ([place] w/BD, lung volumes, diffusion)?: Yes; Rest and [...] Melendez MD 03/27/2014 13:24 | | | [facility] | | + + + + + [...] 03/26/14Electronically signed by: Gary Melendez MD 03/27/2014 13:24[facility] | | [facility] | | | |No prior pulmonary function tests available for comparison. | | | |Test performed: 03/26/14 | |Electronically signed by: Gary Melendez MD 03/27/2014 13:24 | |[facility] | + + documented in this encounter Visit Diagnoses + + | Diagnosis | + + | Hypoxemia - Primary | + + | Kyphosis deformity of spine Kyphosis (acquired) (postural) | + + documented in this encounter
--- OUTSIDE RECORDS SUMMARY | ~2019-06-03 | XMS | Encounter Summary ---
Demographics + + + | Address | [address] | | | [place] [address] | + + + | Home Phone [...] Team Providers + +------+ + | Care Tufting Machine Operator Name | Role | Phone [...] | | | | | [place], | [place], [place] | | | | | [place] [address] | [address] | | | | | [phone] | | | +--------+ + + + [...]
--- OUTSIDE RECORDS SUMMARY | ~2019-06-03 | XMS | Encounter Summary ---
Demographics + + + | Address | [address] | | | [place] [address] | + + + | Home Phone [...] Team Providers + +------+ + | Care Courtesy Driver Name | Role | Phone | [...] | Dx); Kyphosis | | | | [place], | [place], [place] | deformity of spine; | | | | [place] [address] | [address] | Restrictive lung | | | | [phone] | | disease | +--------+---------+ + + [...] + | MISCELLANEOUS LAB | | | [phone] | + +---------+ + + | MISCELANIOUS LAB | | | [phone] | + +---------+ + + documented in this encounter Visit Diagnoses + + | Diagnosis | + + | Hypoxemia - Primary | + + | 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
--- OUTSIDE RECORDS SUMMARY | ~2019-06-03 | XMS | Clinical Summary ---
Demographics + + + | Address | [address] | | | [place] [address] | + + + | Home Phone | | + + + | Preferred Language | Unknown | + + + | Marital Status | Unknown | + + + | Samaritan Affiliation | Unknown | + + + | Race | Unknown | + + + | Ethnic Group | Unknown | + + + Author + + + | Author | [facility] | + + + | Organization | [facility] | + + + | Address | Unknown | + + + | Phone | Unavailable | + + + Care Team Providers + +------+ + | Care Baggage Inspector Name | Role | Phone | + +------+ + PCP | Unavailable | + +------+ + Source Comments JAYDEN is fully live on both EpicCare Ambulatory and EpicCare InPatient.Formerly [facility] Allergies Not on File Medications Not [...]
--- OUTSIDE RECORDS SUMMARY | ~2019-06-03 | XMS | Encounter Summary ---
Demographics + + + | Address | [address] | | | [place] [address] | + + + | Home Phone [...] Team Providers + +------+ + | Care Consultants Intern Name | Role | Phone | + [...] + + | 03/26/ | Office | [facility] | Gary Melendez, | Hypoxemia (Primary | | 2014 | Visit | PULMONARY [address] | MD [address] | Dx); Kyphosis | | | | [place], | [place], [place] | deformity of spine; | | | | [place] [address] | [address] | Restrictive lung | | | | [phone] | | disease | +--------+---------+ + + [...] + | MISCELLANEOUS LAB | | | [phone] | + +---------+ + + | MISCELANIOUS LAB | | | [phone] | + +---------+ + + documented in this encounter Visit Diagnoses + + | Diagnosis | + + | Hypoxemia - Primary | + + | 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
--- OUTSIDE RECORDS SUMMARY | ~2019-06-03 | XMS | Encounter Summary ---
Demographics + + + | Address | [address] | | | [place] [address] | + + + | Home Phone | | + + + | Preferred Language | Unknown | + + + | Marital Status | Unknown | + + + | Lutheran Affiliation | Unknown | + + + | Race | Unknown | + + + | Ethnic Group | Unknown | + + + Author + + + | Author | [facility] | + + + | Organization | [facility] | + + + | Address | Unknown | + + + | Phone | Unavailable | + + + Care Team Providers + +------+ + | Care Adult Literacy Instructor Name | Role | Phone | + [...] | | | | | [place], | [place], [place] | | | | | [place] [address] | [address] | | | | | [phone] | | | +--------+ + + + [...]
--- OUTSIDE RECORDS SUMMARY | ~2019-06-03 | XMS | Encounter Summary ---
Demographics + + + | Address | [address] | | | [place] [address] | + + + | Home Phone [...] Team Providers + +------+ + | Care Silviculture Forester Name | Role | Phone | + +------+ + | Yovani Santana MD | PCP | | + +------+ + Encounter Details +--------+ + + + + | Date | Type | Department | Care Team | Description | +--------+ + + + + | 05/10/ | Hospital | [facility] | Gary Melendez, | Hypoxemia; | | 2014 | Encounter | MED CTR XRAY [address] | MD [address] | Restrictive lung | | | | [place] | [place], [place] | disease | | | | [place] [address] | [address] | | | | | [phone] | | | | | | | [...] + | MISCELLANEOUS LAB | | | [phone] | + +---------+ + + | MISCELANIOUS LAB | | | [phone] | + +---------+ + + documented in this encounter Visit Diagnoses + + | Diagnosis | + + | Hypoxemia | + + | Restrictive lung disease Other diseases of lung, not elsewhere classified | + + documented in this encounter"
--- OUTSIDE RECORDS SUMMARY | ~2019-06-03 | XMS | Encounter Summary ---
Demographics + + + | Address | [address] | | | [place] [address] | + + + | Home Phone [...] Team Providers + +------+ + | Care Curer Foam Rubber Name | Role | Phone | + [...] [place], [place] | | | | | [place], | [address] | | | | | [place] [address] | | | | | | [phone] | | | +--------+ + + + [...] Melendez MD 03/27/2014 13:24 | | | [facility] | | + + + + + [...] 03/26/14Electronically signed by: Gary Melendez MD 03/27/2014 13:24[facility] | | [facility] | | | |No prior pulmonary function tests available for comparison. | | | |Test performed: 03/26/14 | |Electronically signed by: Gary Melendez MD 03/27/2014 13:24 | |[facility] | + + documented in this encounter Visit Diagnoses + + | Diagnosis | + + | Hypoxemia | + + | Kyphosis deformity of spine Kyphosis (acquired) (postural) | + + documented in this encounter"
--- OUTSIDE RECORDS SUMMARY | ~2019-06-03 | XMS | Encounter Summary ---
Demographics + + + | Address | [address] | | | [place] [address] | + + + | Home Phone [...] Team Providers + +------+ + | Care Restoration Ecologist Name | Role | Phone | + [...] + + | 03/26/ | Office | [facility] | Gary Melendez, | Hypoxemia (Primary | | 2014 | Visit | PULMONARY [address] | MD [address] | Dx); Kyphosis | | | | [place], | [place], [place] | deformity of spine; | | | | [place] [address] | [id number] | Restrictive lung | | | | [phone] | | disease | +--------+---------+ + + [...] + | MISCELLANEOUS LAB | | | [phone] | + +---------+ + + | MISCELANIOUS LAB | | | [phone] | + +---------+ + + documented in this encounter Visit Diagnoses + + | Diagnosis | + + | Hypoxemia - Primary | + + | 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
--- OUTSIDE RECORDS SUMMARY | ~2019-06-03 | XMS | Encounter Summary ---
Demographics + + + | Address | [address] | | | [place] [address] | + + + | Home Phone | | + + + | Preferred Language | Unknown | + + + | Marital Status | Unknown | + + + | Temple Affiliation | Unknown | + + + [...] Team Providers + +------+ + | Care Wool Fleece Sorter Name | Role | Phone | [...] | | | | | [place], | [place], [place] | | | | | [place] [address] | [address] | | | | | [phone] | | | +--------+ + + + [...]
--- OUTSIDE RECORDS SUMMARY | ~2019-06-03 | XMS | Encounter Summary ---
Demographics + + + | Address | [address] | | | [place] [address] | + + + | Home Phone | | + + + | Preferred Language | Unknown | + + + | Marital Status | Single | + + + | Sikh Affiliation | [id number] | + + + [...] Team Providers + +------+ + | Care Grooving Lathe Tender Name | Role | Phone | + +------+ + | Yovani Santana MD | PCP | | + +------+ + Encounter Details +--------+ + + + + | Date | Type | Department | Care Team | Description | +--------+ + + + + | 01/28/ | Hospital | [facility] | Jacob Smith, | | | 2014 - | Encounter | [facility] | MD Carmelo SANTAMARIA | | | | | CARE FLOOR [address] | [place] [address] | | | 02/03/ | | TIERA SANTAMARIA | [phone] | | | 2014 | | [place], [place] | | | | | | [address] | | | | | | [phone] | | | +--------+ + + + [...] Date of Service: 02/03/15 1029 Status: Signed End Matcher: Jose Maria Espinal MD (Physician) Related Notes: Original Note by Jose Maria Espinal MD (Physician) filed at 02/04/15 1345 [facility] Service: Hospitalist Physician Discharge Summary Patient [...] 2-4 lpm, Presented as a transfer from [facility] in [place] for fever of 101 and altered mental s tatus. She was discharged from [facility] on 01/09/15 for elevated troponin and acute [...] antibiotics. She was brought back in to [facility] for fever and confusion. UA and CXR reportedly negative there. SBP was 90s. She had formed stool there but en route here she did develop watery stool, tested C diff + here.".......per admitting MD/Dr. Smith . The patient was admitted to [facility] with a diagnosis of Clostridium difficile infection while she was being transferred from [facility] with fever and altered mental status. Th e patient has underlying immunosuppression secondary to a remote history of liver transplant on chronic immunosuppressive therapy with azathioprine and cyclosporin. Following her trans fletcher to [facility], she was started on oral vancomycin initially [...] medically stable for discharge to return to [facility] in [place] on Jan. ADDITIONAL ISSUES 1. Recurrent atelectasis. [...] days. I would urge managing physician at [facility] facility where the patient resides in [facility] to check anothe r magnesium [...] Procedure: COLONOSCOPY; Surgeon: Juan Ramey MD; Location: [facility]; Service: Gastroenterology; Laterality: N/A; Discharged Condition: [...] Follow up: Ki De Jesus DO [address] [facility] [address] [place] [id number] Schedule an appointment as soon as possible [...] Get Your Medications You need to pickle maker these prescriptions. We sent some of them to a specific pharmacy. Go t o these places to get your medications. [facility] - [place], [place] - [address] - lactobacillus granules [address] [place] [address] You may get the following medications from [...] 02/03/151608 Date of Service: 02/03/151608 Status: Signed End Matcher: Pedro Partida RN (Registered Nurse) 02/03/151602 Discharge [...] Oriented Anticipated Disposition Facility Type correction facility Senior Care Facility Other (comment) ([facility] in [place]) Disposition: Return to [facility] [...] 02/03/15899 Date of Service: 02/02/151521 Status: Signed End Matcher: Jose Maria Espinal MD (Physician) Related Notes: Original Note by Jose Maria Espinal MD (Physician) filed at 02/02/15 1950 [facility] Service: Hospitalist Progress Note Pt: Cole Ernst AGE/SEX: 69 y.o. female : 1945 [place] [facility] [place] [facility] [place] History of Present Illness: " The patient is a 69 y.o. female with significant past medical history of liver transplant int he 90s on cyclosporine and imuran, chronic pain on methadone, CKD st 3, chronic home O2 of unclear etiology from 2-4 lp, Presented as a transfer from [facility] in [place] for fever of 101 and altered mental s tatus. She was discharged from [facility] on 01/09/15 for elevated troponin and acute [...] antibiotics. She was brought back in to [facility] for fever and confusion. UA [...] sulfate. Case management [facility] [place] [facility] patient in the next [...] contrast. Prior study for comparison: None FINDINGS: Equal Opportunity Assistant 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 deg enerative changes of [...] or extraluminal fluid collection Electronically signed by aGry Wong MD on 10:11 PM Nm Myocardial [...] LA/Ao: 1.57 D-E Excursion: 2.11 cm E-F Spink: 0.09 m/s EPSS: 0.48 cm HR: 77.41 [...] TV A Billy: 0.66 m/s TV Dec Spink: 4.36 m/s2 TV Dec Time: 184.41 ms TV E Billy: 0.80 m/s TV E/A Rat io: 1.21 Electric Shaver Mechanic: NEDRA Authenticated by: Gil Martines MD [...] Procedure: COLONOSCOPY; Surgeon: Juan Ramey MD; Location: [facility]; Service: Gastroenterology; Laterality: N/A; PROBLEM LIST [...] by Jose Maria Espinal MD at 02/01/15 3846 Author: Jose Maria Espinal MD Service: Hospitalist Author Type: Physician Filed: 02/02/15 1529 Date of Service: 02/01/151716 Status: Signed End Matcher: Jose Maria Espinal MD (Physician) Related Notes: Original Note by Jose Maria Espinal MD (Physician) filed at 02/02/15 1306 [facility] Service: Hospitalist Progress Note Pt: Cole Ernst AGE/SEX: 69 y.o. female : 1945 ROOM: [address] [place] [address] History of Present Illness: " The patient is a 69 y.o. female with significant past medical history of liver transplant int he 90s on cyclosporine and imuran, chronic pain on methadone, CKD st 3, chronic home O2 of unclear etiology from 2-4 lpm, Presented as a transfer from [facility] for fever of 101 and altered mental s tatus. She was discharged from [facility] on 01/09/15 for elevated troponin and acute [...] antibiotics. She was brought back in to [facility] for fever and confusion. UA [...] establishing readiness of the faci lity in [place] to accept the patient in the next [...] contrast. Prior study for comparison: None FINDINGS: Equal Opportunity Assistant 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 deg enerative changes of [...] LA/Ao: 1.57 D-E Excursion: 2.11 cm E-F Spink: 0.09 m/s EPSS: 0.48 cm HR: 77.41 [...] TV A Billy: 0.66 m/s TV Dec Spink: 4.36 m/s2 TV Dec Time: 184.41 ms TV E Billy: 0.80 m/s TV E/A Rat io: 1.21 Electric Shaver Mechanic: NEDRA Authenticated by: Gil Martines MD [...] Procedure: COLONOSCOPY; Surgeon: Juan Ramey MD; Location: [facility]; Service: Gastroenterology; Laterality: N/A; PROBLEM LIST [...] Currently with normal liver function tests. 3. Ddohs-pt-vuydgvw liver disease, stage III. Creatinine level has [...] 01/31/152124 Date of Service: 01/31/151513 Status: Signed End Matcher: Jose Maria Espinal MD (Physician) Related Notes: Original Note by Jose Maria Espinal MD (Physician) filed at 01/31/15 1523 [facility] Service: Hospitalist Progress Note Pt: Cole Ernst AGE/SEX: 69 y.o. female : 1945 ROOM: [address] [place] [address] History of Present Illness: " The patient is a 69 y.o. female with significant past medical history of liver transplant int he 90s on cyclosporine and imuran, chronic pain on methadone, CKD st 3, chronic home O2 of unclear etiology from 2-4 lpm, Presented as a transfer from [facility] in [place] for fever of 101 and altered mental s tatus. She was discharged from [facility] on 01/09/15 for elevated troponin and acute [...] antibiotics. She was brought back in to [facility] for fever and confusion. UA [...] contrast. Prior study for comparison: None FINDINGS: Equal Opportunity Assistant 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 deg enerative changes of [...] Cardiac Adult Complete 01/15/2015 Patient Name: COLE ERNTS Date of : 1945 Performing Physician: Gil [...] LA/Ao: 1.57 D-E Excursion: 2.11 cm E-F Spink: 0.09 m/s EPSS: 0.48 cm HR: 77.41 [...] TV A Billy: 0.66 m/s TV Dec Spink: 4.36 m/s2 TV Dec Time: 184.41 ms TV E Billy: 0.80 m/s TV E/A Rat io: 1.21 Electric Shaver Mechanic: NEDRA Authenticated by: Gil Martines MD [...] Procedure: COLONOSCOPY; Surgeon: Juan Ramey MD; Location: [facility]; Service: Gastroenterology; Laterality: N/A; PROBLEM LIST [...] 1313 Date of Service: 01/31/151312 Status: Signed End Matcher: Catina Moon () Attempted visit. Pt sitting in chair sleeping. No family present. Chaplain Catina Moon onver alessandro Transaction, Provider Unknown - 01/31/2015 11:35 AM PDT Therapy Progress Note by Mahi Yanes PTA at 01/31/15 1135 Author: Mahi Yanes PTA Service: (none) Author Type: Manager Dairy Filed: 01/31/15 1410 Date of Service: 01/31/151134 Status: Signed End Matcher: Mahi Yanes PTA (Manager Dairy) 01/31/15 1135 PT Last Visit PT Received [...] PDT Case Management by Gregg Keene MS, ENGINEERING PROFESSOR at 01/31/15 1007 Author: Gregg Keene, MS, ENGINEERING PROFESSOR Service: (none) Author Type: Sound Recording Technician Filed: 01/31/15 1546 Date of Service: 01/31/15 1007 Status: Addendum End Matcher: Gregg Keene , ENGINEERING PROFESSOR (Sound Recording Technician) Related Notes: Original Note by Gregg Yecenia MS, ENGINEERING PROFESSOR (Sound Recording Technician) filed at 01/31/15 1007 Discharge planning [...] (none) Author Type: Physical Therapist Filed: 01/30/15 2185 Date of Service: 01/30/15 1705 Status: Signed End Matcher: Gail Vernon PT (Physical Therapist) 01/30/15 170 [...] Service: Hospitalist Author Type: Physician Filed: 01/31/15 1407 Date of Service: 01/30/15 1414 Status: Signed End Matcher: Jose Maria Espinal MD (Physician) Related Notes: Original Note by Jose Maria Espinal MD (Physician) filed at 01/30/15 6153 [facility] Service: Hospitalist Progress Note Pt: Cole [...] 2-4 lpm, Presented as a transfer from [facility] in [place] for fever of 101 and altered mental s tatus. She was discharged from [facility] on 01/09/15 for elevated troponin and acute [...] antibiotics. She was brought back in to [facility] for fever and confusion. UA [...] contrast. Prior study for comparison: None FINDINGS: Equal Opportunity Assistant 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 deg enerative changes of [...] at 61%. Xr Chest 1 View 01/28/2015 COELTeresa ERNST 1945 69 years XR CHEST 1 [...] LA/Ao: 1.57 D-E Excursion: 2.11 cm E-F Spink: 0.09 m/s EPSS: 0.48 cm HR: 77.41 [...] TV A Billy: 0.66 m/s TV Dec Spink: 4.36 m/s2 TV Dec Time: 184.41 ms TV E Billy: 0.80 m/s TV E/A Rat io: 1.21 Electric Shaver Mechanic: NEDRA Authenticated by: Gil Martines MD [...] Procedure: COLONOSCOPY; Surgeon: Juan Ramey MD; Location: [facility]; Service: Gastroenterology; Laterality: N/A; PROBLEM LIST [...] Patient's live r functions remain normal. 3. Wdehc-ye-holyejp kidney disease stage III. Creatinine level has [...] by Jose Maria Espinal MD at 01/29/15 814 Author: Jose Maria Espinal MD Service: Hospitalist Author Type: Physician Filed: 01/30/15 0957 Date of Service: 01/29/151650 Status: Signed End Matcher: Jose Maria Espinal MD (Physician) Related Notes: Original Note by Jose Maria Espinal MD (Physician) filed at 01/29/152024 [facility] Service: Hospitalist Progress Note Pt: Cole Ernst AGE/SEX: 69 y.o. female : 1945 ROOM: [address] [place] [address] History of Present Illness: " The patient is a 69 y.o. female with significant past medical history of liver transplant int he 90s on cyclosporine and imuran, chronic pain on methadone, CKD st 3, chronic home O2 of unclear etiology from 2-4 lpm, Presented as a transfer from [facility] in [place] for fever of 101 and altered mental s tatus. She was discharged from [facility] on 01/09/15 for elevated troponin and acute [...] antibiotics. She was brought back in to [facility] for fever and confusion. UA [...] contrast. Prior study for comparison: None FINDINGS: Equal Opportunity Assistant 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 deg enerative changes of [...] LA/Ao: 1.57 D-E Excursion: 2.11 cm E-F Spink: 0.09 m/s EPSS: 0.48 cm HR: 77.41 [...] TV A Billy: 0.66 m/s TV Dec Spink: 4.36 m/s2 TV Dec Time: 184.41 ms TV E Billy: 0.80 m/s TV E/A Rat io: 1.21 Electric Shaver Mechanic: NEDRA Authenticated by: Gil Martines MD [...] Procedure: COLONOSCOPY; Surgeon: Juan Ramey MD; Location: [facility]; Service: Gastroenterology; Laterality: N/A; PROBLEM LIST [...] Date of Service: 01/29/15 1525 Status: Signed End Matcher: Pedro Partida RN (Registered Nurse) 01/29/15 1521 [...] Oriented Anticipated Disposition Facility Type correction facility Senior Care Facility Other (comment) ([facility] in [place]) Met with: patient and discussed discharge planning, Pt is a 69 y.o., female who was [place] [facility] [place] to [facility] [...] 01/29/1533 Date of Service: 01/29/15854 Status: Signed End Matcher: Barbara Edmond PT (Physical Therapist) 01/29/15 08 [...] to SNF after current hospital stay. Just HEAD OF LOSS PREVENTION Júnior ADL's and Júnior mobility using 4ww for short room distances, had been using manual w/c in hallway at SNF. Reports a few falls at facility ov er last week, otherwise denies falls over last 6mos. Was getting therapies at facility. Prior Function Level of [place] Modified independent with ADLs;Modified independent with functional [...] Barriers to Discharge Physical Deficits Impacting Functional [place];Self-care Deficit s Impacting Functional [place];Equipment Needs (see comment);Pain Recommendation Comments Needs return [...] Barriers to Discharge Physical Deficits Impacting Functional [place];Self-care Deficit s Impacting Functional [place];Equipment Needs (see comment);Pain Recommendation Comments Needs return [...] 01/29/15831 Date of Service: 01/29/15830 Status: Signed End Matcher: Malick Ramos RN (Registered Nurse) Infection Prevention Note: Patient stool is positive for C. Diff. Contact Enteric Precautions are required until furt her notice. Thank you. Malick Ramos RN, BA, Etl Lead onver alessandro Transaction, Provider Unknown - 01/28/2015 3:23 PM PDT Progress Notes by Jimena Duarte RPH at 01/28/151522 Author: Jimena Duarte RPH Service: (none) Author Type: Pharmacist Filed: 01/28/15 152 Date of Service: 01/28/151522 Status: Signed End Matcher: Jimena Duarte RPH (Pharmacist) Zosyn Extended Infusion Initial Consult-Per Dr. Jacob Ernst 69 y.o. female CrCl cannot be calculated (Unknown ideal weight.). NEUTROPHILS ABS Date Value Ref Range Status 01/18/2015 3.26 1.90 - 7.40 K/uL Final Comment: Testing performed at [facility], [address] [place] [address] CREATININE Date Value Ref Range Status 01/19/2015 0.96 0.50 - 1.00 mg/dL Final Comment: Testing performed at [facility], [address] [place] [address] Zosyn extended Infusion loading and maintenance dose guidelines Loading Dose 4.5 g IV Over 30 minutes CrCl >20 ml/min 3.375 g IV Q 8 hours Over 4 hours CrCl 10-20 ml/min 3.375 g IV Q 12 hours Over 4 hours CrCl <10, HD, PD Follow [facility] Dosage Adjustments in Renal Dysfunction Protocol Plan [...] 01/28/151515 Date of Service: 01/28/151515 Status: Signed End Matcher: Jimena Duarte RPH (Pharmacist) Renal Dosing Monitoring: [...] | | | | | [place] [address] | | | | + + + + + + | RED CELL | 2.72 (L)Comment: Testing | 3.70 - 5.10 | EXTERNAL | | | COUNT | performed at [facility], [address] | M/uL | LAB | | | | [email or web address], | | | | | | [place] [address] | | | | + + + + + + | Hgb | 9.6 (L)Comment: Testing | 11.3 - 15.5 | EXTERNAL | | | | performed at [facility], [address] | g/dL | LAB | | | | [address], | | | | | | [place] [address] | | | | + + + + + + | Hematocrit, | 28.8 (L)Comment: Testing | 34.0 - 46.0 % | EXTERNAL | | | POC | performed at [facility], [address] | | LAB | | | | [address], | | | | | | [place] [address] | | | | + + + + + + | MCV | 106.0 (H)Comment: | 80.0 - 100.0 fl | EXTERNAL | | | | Testing performed at | | LAB | | | | [facility], [address] | | | | | | [place] | | | | | | [address] | | | | + + + + + + | MCH | 35.2 (H)Comment: Testing | 27.0 - 34.0 pg | EXTERNAL | | | | performed at [facility], [address] | | LAB | | | | [address], | | | | | | [place] [address] | | | | + + + + + + | MCHC | 33.2Comment: Testing | 32.0 - 35.5 | EXTERNAL | | | | performed at [facility], [address] | g/dL | LAB | | | | [address], | | | | | | [place] [address] | | | | + + + + + + | RDW-CV | 53.4 (H)Comment: Testing | 37 - 53 fl | EXTERNAL | | | | performed at [facility], [address] | | LAB | | | | [address], | | | | | | [place] [address] | | | | + + + + + + | Platelet | 216Comment: Testing | 150 - 400 K/uL | EXTERNAL | | | Count | performed at [facility], [address] | | LAB | | | Plasma | [address], | | | | | | [place] [address] | | | | + + + + + + | MPV | 10.5Comment: Testing | fl | EXTERNAL | | | | performed at [facility], [address] | | LAB | | | | [address], | | | | | | [place], [place] [address] | | | | + + + + + + | Differentia | MANUALComment: Testing | | EXTERNAL | | | l Type | performed at [facility], [address] | | LAB | | | | [address], | | | | | | [place], [place] [address] | | | | + + + + + + | Segmented | 35Comment: Testing | % | EXTERNAL | | | Neutrophils | performed at [facility], [address] | | LAB | | | Manual | [address], | | | | | | [place] [address] | | | | + + + + + + | % Bands | 1Comment: Testing | % | EXTERNAL | | | | performed at [facility], [address] | | LAB | | | | [address], | | | | | | [place] [address] | | | | + + + + + + | Lymphocytes | 44Comment: Testing | % | EXTERNAL | | | Manual | performed at [facility], [address] | | LAB | | | | [address], | | | | | | [place] [address] | | | | + + + + + + | Monocytes | 12Comment: Testing | % | EXTERNAL | | | Manual | performed at [facility], [address] | | LAB | | | | [address], | | | | | | [place] [address] | | | | + + + + + + | Eosinophils | 8Comment: Testing | % | EXTERNAL | | | Manual | performed at [facility], [address] | | LAB | | | | [address], | | | | | | [place] [address] | | | | + + + + + + | Absolute | 3.08Comment: Testing | 1.90 - 7.40 | EXTERNAL | | | Neutrophils | performed at [facility], [address] | K/uL | LAB | | | | [address], | | | | | | [place] [address] | | | | + + + + + + | Bands | 0.09Comment: Testing | 0.00 - 0.20 | EXTERNAL | | | Manual | performed at [facility], [address] | K/uL | LAB | | | | [address], | | | | | | [place] [address] | | | | + + + + + + | Absolute | 3.88Comment: Testing | 1.00 - 3.90 | EXTERNAL | | | Lymphocytes | performed at [facility], [address] | K/uL | LAB | | | | [address], | | | | | | [place] [address] | | | | + + + + + + | Absolute | 1.06 (H)Comment: Testing | 0.00 - 0.80 | EXTERNAL | | | Monocytes | performed at [facility], [address] | K/uL | LAB | | | | [address], | | | | | | [place] [address] | | | | + + + [...] | | | | | | [place] [address] | | | | + + [...] EXTERNAL | | | | performed at [facility], [address] | | LAB | | | | [address], | | | | | | [place] [address] | | | | + + + [...] EXTERNAL | | | | performed at [facility], [address] | | LAB | | | | [address], | | | | | | [place] [address] | | | | + + + [...] | | | | | [place] [address] | | | | + + + + + + | K | 4.0Comment: Testing | 3.5 - 4.9 | EXTERNAL | | | | performed at [facility], [address] | mmol/L | LAB | | | | [address] [place], | | | | | | [place] [address] | | | | + + + + + + | Cl | 102Comment: Testing | 99 - 109 mmol/L | EXTERNAL | | | | performed at [facility], [address] | | LAB | | | | [address] [place], | | | | | | [place] [address] | | | | + + + + + + | CO2 | 33 (H)Comment: Testing | 23 - 32 mmol/L | EXTERNAL | | | | performed at [facility], [address] | | LAB | | | | [address], | | | | | | [place] [address] | | | | + + + + + + | Anion Gap | 5Comment: Testing | 5 - 20 mmol/L | EXTERNAL | | | | performed at [facility], [address] | | LAB | | | | [address], | | | | | | [place] [address] | | | | + + + + + + | Glucose, | 105 (H)Comment: Testing | 65 - 99 mg/dL | EXTERNAL | | | Fasting | performed at [facility], [address] | | LAB | | | | [address], | | | | | | [place] [address] | | | | + + + + + + | BUN | 9Comment: Testing | 8 - 25 mg/dL | EXTERNAL | | | | performed at [facility], [address] | | LAB | | | | [address], | | | | | | [place] [address] | | | | + + + + + + | Creatinine | 0.82Comment: Testing | 0.50 - 1.00 | EXTERNAL | | | | performed at [facility], [address] | mg/dL | LAB | | | | [address], | | | | | | [place] [address] | | | | + + + + + + | BUN/Creatin | 11Comment: Testing | | EXTERNAL | | | ine Ratio | performed at [facility], [address] | | LAB | | | | [address], | | | | | | [place] [address] | | | | + + + + + + | Calcium | 8.5Comment: Testing | 8.5 - 10.5 | EXTERNAL | | | | performed at [facility], [address] | mg/dL | LAB | | | | [address], | | | | | | [place] [address] | | | | + + + + + + | Protein, | 6.3Comment: Testing | 6.3 - 8.2 g/dL | EXTERNAL | | | Total | performed at [facility], [address] | | LAB | | | | [address], | | | | | | [place] [address] | | | | + + + + + + | Albumin | 2.8 (L)Comment: Testing | 3.3 - 4.8 g/dL | EXTERNAL | | | | performed at [facility], [address] | | LAB | | | | [address], | | | | | | [place] [address] | | | | + + + + + + | Globulin | 3.5Comment: Testing | 1.3 - 4.9 g/dL | EXTERNAL | | | | performed at [facility], [address] | | LAB | | | | [address], | | | | | | [place] [address] | | | | + + + + + + | A/G Ratio | 0.8 (L)Comment: Testing | 1.0 - 2.4 | EXTERNAL | | | | performed at [facility], [address] | | LAB | | | | [address], | | | | | | [place] [address] | | | | + + + + + + | Bilirubin | 0.5Comment: Testing | 0.1 - 1.5 mg/dL | EXTERNAL | | | Total | performed at [facility], [address] | | LAB | | | | [address], | | | | | | [place] [address] | | | | + + + + + + | ALP, | 102Comment: Testing | 35 - 115 U/L | EXTERNAL | | | External | performed at [facility], [address] | | LAB | | | | [address], | | | | | | [place] [address] | | | | + + + + + + | AST | 53 (H)Comment: Testing | 10 - 45 U/L | EXTERNAL | | | | performed at [facility], [address] | | LAB | | | | [address], | | | | | | [place] [address] | | | | + + + + + + | ALT | 21Comment: Testing | 10 - 65 U/L | EXTERNAL | | | | performed at [facility], [address] | | LAB | | | | [address], | | | | | | [place] [address] | | | | + + [...] | | | | | | at [facility], [address] | | | | | | [address] [facility], | | | | | | [place] [address] | | | | + + + [...] | | | | performed at [facility];[address] | mmol/L | LAB | | | | [address];[place], [place] | | | | | | [address] | | | | + + + [...] | | | | performed at [facility];[address] | | LAB | | | | [address] [place] | | | | | | [address] | | | | + + + [...] EXTERNAL | | | | performed at [facility], [address] | K/uL | LAB | | | | [address], | | | | | | [place] [address] | | | | + + + + + + | RED CELL | 2.78 (L)Comment: Testing | 3.70 - 5.10 | EXTERNAL | | | COUNT | performed at [facility], [address] | M/uL | LAB | | | | [address], | | | | | | [place] [address] | | | | + + + + + + | Hgb | 9.7 (L)Comment: Testing | 11.3 - 15.5 | EXTERNAL | | | | performed at [facility], [address] | g/dL | LAB | | | | [address], | | | | | | [place] [address] | | | | + + + + + + | Hematocrit, | 29.6 (L)Comment: Testing | 34.0 - 46.0 % | EXTERNAL | | | POC | performed at [facility], [address] | | LAB | | | | [address], | | | | | | [place] [address] | | | | + + + + + + | MCV | 106.3 (H)Comment: | 80.0 - 100.0 fl | EXTERNAL | | | | Testing performed at | | LAB | | | | [facility] [facility], [address] | | | | | | [place] | | | | | | [address] | | | | + + + + + + | MCH | 34.8 (H)Comment: Testing | 27.0 - 34.0 pg | EXTERNAL | | | | performed at [facility], [address] | | LAB | | | | [address], | | | | | | [place] [address] | | | | + + + + + + | MCHC | 32.8Comment: Testing | 32.0 - 35.5 | EXTERNAL | | | | performed at [facility], [address] | g/dL | LAB | | | | [address], | | | | | | [place] [address] | | | | + + + + + + | RDW-CV | 53.8 (H)Comment: Testing | 37 - 53 fl | EXTERNAL | | | | performed at [facility], [address] | | LAB | | | | [address], | | | | | | [place] [address] | | | | + + + + + + | Platelet | 181Comment: Testing | 150 - 400 K/uL | EXTERNAL | | | Count | performed at [facility], [address] | | LAB | | | Plasma | [address], | | | | | | [place] [address] | | | | + + + + + + | MPV | 11.3Comment: Testing | fl | EXTERNAL | | | | performed at [facility], [address] | | LAB | | | | [address], | | | | | | [place] [address] | | | | + + + + + + | Differentia | MANUALComment: Testing | | EXTERNAL | | | l Type | performed at [facility], [address] | | LAB | | | | [address], | | | | | | [place] [address] | | | | + + + + + + | Segmented | 45Comment: Testing | % | EXTERNAL | | | Neutrophils | performed at [facility], [address] | | LAB | | | Manual | [address], | | | | | | [place] [address] | | | | + + + [...] | | | | | [place], [place] [address] | | | | + + + + + + | Monocytes | 11Comment: Testing | % | EXTERNAL | | | Manual | performed at [facility], [address] | | LAB | | | | [address], | | | | | | [place] [address] | | | | + + + + + + | Eosinophils | 8Comment: Testing | % | EXTERNAL | | | Manual | performed at [facility], [address] | | LAB | | | | [address], | | | | | | [place] [address] | | | | + + + + + + | Absolute | 3.85Comment: Testing | 1.90 - 7.40 | EXTERNAL | | | Neutrophils | performed at [facility], [address] | K/uL | LAB | | | | [address], | | | | | | [place] [address] | | | | + + + + + + | Bands | 0.09Comment: Testing | 0.00 - 0.20 | EXTERNAL | | | Manual | performed at [facility], [address] | K/uL | LAB | | | | [address], | | | | | | [place] [address] | | | | + + + + + + | Absolute | 3.01Comment: Testing | 1.00 - 3.90 | EXTERNAL | | | Lymphocytes | performed at [facility], [address] | K/uL | LAB | | | | [address], | | | | | | [place] [address] | | | | + + + + + + | Absolute | 0.95 (H)Comment: Testing | 0.00 - 0.80 | EXTERNAL | | | Monocytes | performed at [facility], [address] | K/uL | LAB | | | | [address], | | | | | | [place] [address] | | | | + + + + + + | Absolute | 0.69 (H)Comment: Testing | 0.00 - 0.50 | EXTERNAL | | | Eosinophils | performed at [facility], [address] | K/uL | LAB | | | | [address], | | | | | | [place] [address] | | | | + + + + + + | RBC | 2+Comment: MACRONORMAL | | EXTERNAL | | | Morphology | PLT MORPHTesting | | LAB | | | | performed at [facility], [address] | | | | | | [address], | | | | | | [place] [address] | | | | | | | [...] | | | | | [place] [address] | | | | + + + [...] EXTERNAL | | | | performed at [facility], [address] | | LAB | | | | [address], | | | | | | [place] [address] | | | | + + + [...] | | | | | [place] [address] | | | | + + + + + + | K | 3.2 (L)Comment: Testing | 3.5 - 4.9 | EXTERNAL | | | | performed at [facility], [address] | mmol/L | LAB | | | | [address], | | | | | | [place] [address] | | | | + + + + + + | Cl | 103Comment: Testing | 99 - 109 mmol/L | EXTERNAL | | | | performed at [facility], [address] | | LATA | | | | [address], | | | | | | [place] [address] | | | | + + + + + + | CO2 | 31Comment: Testing | 23 - 32 mmol/L | EXTERNAL | | | | performed at [facility], [address] | | LAB | | | | [address], | | | | | | [place] [address] | | | | + + + + + + | Anion Gap | 7Comment: Testing | 5 - 20 mmol/L | EXTERNAL | | | | performed at [facility], [address] | | LAB | | | | [address], | | | | | | [place] [address] | | | | + + + + + + | Glucose, | 104 (H)Comment: Testing | 65 - 99 mg/dL | EXTERNAL | | | Fasting | performed at [facility], [address] | | LAB | | | | [address], | | | | | | [place] [address] | | | | + + + + + + | BUN | 10Comment: Testing | 8 - 25 mg/dL | EXTERNAL | | | | performed at [facility], [address] | | LAB | | | | [address], | | | | | | [place] [address] | | | | + + + + + + | Creatinine | 0.83Comment: Testing | 0.50 - 1.00 | EXTERNAL | | | | performed at [facility], [address] | mg/dL | LAB | | | | [address], | | | | | | [place] [address] | | | | + + + + + + | BUN/Creatin | 12Comment: Testing | | EXTERNAL | | | ine Ratio | performed at [facility], [address] | | LAB | | | | [address], | | | | | | [place] [address] | | | | + + + + + + | Calcium | 8.2 (L)Comment: Testing | 8.5 - 10.5 | EXTERNAL | | | | performed at [facility], [address] | mg/dL | LAB | | | | [address], | | | | | | [place] [address] | | | | + + + + + + | Protein, | 6.2 (L)Comment: Testing | 6.3 - 8.2 g/dL | EXTERNAL | | | Total | performed at [facility], [address] | | LAB | | | | [address], | | | | | | [place] [address] | | | | + + + + + + | Albumin | 2.7 (L)Comment: Testing | 3.3 - 4.8 g/dL | EXTERNAL | | | | performed at [facility], [address] | | LAB | | | | [address], | | | | | | [place] [address] | | | | + + + + + + | Globulin | 3.5Comment: Testing | 1.3 - 4.9 g/dL | EXTERNAL | | | | performed at [facility], [address] | | LAB | | | | [address], | | | | | | [place] [address] | | | | + + + + + + | A/G Ratio | 0.8 (L)Comment: Testing | 1.0 - 2.4 | EXTERNAL | | | | performed at [facility], [address] | | LAB | | | | [address], | | | | | | [place] [address] | | | | + + + + + + | Bilirubin | 0.5Comment: Testing | 0.1 - 1.5 mg/dL | EXTERNAL | | | Total | performed at [facility], [address] | | LAB | | | | [address], | | | | | | [place] [address] | | | | + + + + + + | ALP, | 98Comment: Testing | 35 - 115 U/L | EXTERNAL | | | External | performed at [facility], [address] | | LAB | | | | [address], | | | | | | [place] [address] | | | | + + + + + + | AST | 35Comment: Testing | 10 - 45 U/L | EXTERNAL | | | | performed at [facility], [address] | | LAB | | | | [address] [place], | | | | | | [place] [address] | | | | + + + + + + | ALT | 15Comment: Testing | 10 - 65 U/L | EXTERNAL | | | | performed at [facility], [address] | | LAB | | | | [address], | | | | | | [place] [address] | | | | + + + [...] [place], | | | | | | [place] [address] | | | | + + + [...] EXTERNAL | | | | performed at [facility], [address] | | LAB | | | | [address], | | | | | | [place] [address] | | | | + + [...] | | | B-12 | performed at [facility], [address] | pg/mL | LAB | | | | [address], | | | | | | [place] [address] | | | | + + + [...] EXTERNAL | | | | performed at [facility], [address] | K/uL | LAB | | | | [address], | | | | | | [place] [address] | | | | + + + + + + | RED CELL | 2.72 (L)Comment: Testing | 3.70 - 5.10 | EXTERNAL | | | COUNT | performed at [facility], [address] | M/uL | LAB | | | | [address], | | | | | | [place] [address] | | | | + + + + + + | Hgb | 9.4 (L)Comment: Testing | 11.3 - 15.5 | EXTERNAL | | | | performed at [facility], [address] | g/dL | LAB | | | | [address], | | | | | | [place] [address] | | | | + + + + + + | Hematocrit, | 29.1 (L)Comment: Testing | 34.0 - 46.0 % | EXTERNAL | | | POC | performed at [facility], [address] | | LAB | | | | [address], | | | | | | [place] [address] | | | | + + + + + + | MCV | 107.3 (H)Comment: | 80.0 - 100.0 fl | EXTERNAL | | | | Testing performed at | | LAB | | | | [facility], [address] | | | | | | [place] | | | | | | [address] | | | | + + + + + + | MCH | 34.6 (H)Comment: Testing | 27.0 - 34.0 pg | EXTERNAL | | | | performed at [facility], [address] | | LAB | | | | [address], | | | | | | [place] [address] | | | | + + + + + + | MCHC | 32.2Comment: Testing | 32.0 - 35.5 | EXTERNAL | | | | performed at [facility], [address] | g/dL | LAB | | | | [address], | | | | | | [place] [address] | | | | + + + + + + | RDW-CV | 57.3 (H)Comment: Testing | 37 - 53 fl | EXTERNAL | | | | performed at [facility], [address] | | LAB | | | | [address], | | | | | | [place] [address] | | | | + + + + + + | Platelet | 174Comment: Testing | 150 - 400 K/uL | EXTERNAL | | | Count | performed at [facility], [address] | | LAB | | | Plasma | [address], | | | | | | [place] [address] | | | | + + + + + + | MPV | 10.9Comment: Testing | fl | EXTERNAL | | | | performed at [facility], [address] | | LAB | | | | [address], | | | | | | [place] [address] | | | | + + + + + + | Differentia | MANUALComment: Testing | | EXTERNAL | | | l Type | performed at [facility], [address] | | LAB | | | | [address], | | | | | | [place], [place] [address] | | | | + + + + + + | Segmented | 45Comment: Testing | % | EXTERNAL | | | Neutrophils | performed at [facility], [address] | | LAB | | | Manual | [address], | | | | | | [place], [place] [address] | | | | + + + + + + | % Bands | 1Comment: Testing | % | EXTERNAL | | | | performed at [facility], [address] | | LAB | | | | [address], | | | | | | [place], [place] [address] | | | | + + + + + + | Lymphocytes | 34Comment: Testing | % | EXTERNAL | | | Manual | performed at [facility], [address] | | LAB | | | | [address], | | | | | | [place] [address] | | | | + + + + + + | Monocytes | 11Comment: Testing | % | EXTERNAL | | | Manual | performed at [facility], [address] | | LAB | | | | [address], | | | | | | [place] [address] | | | | + + + + + + | Eosinophils | 9Comment: Testing | % | EXTERNAL | | | Manual | performed at [facility], [address] | | LAB | | | | [address], | | | | | | [place] [address] | | | | + + + + + + | Absolute | 3.77Comment: Testing | 1.90 - 7.40 | EXTERNAL | | | Neutrophils | performed at [facility], [address] | K/uL | LAB | | | | [address], | | | | | | [place] [address] | | | | + + + + + + | Bands | 0.08Comment: Testing | 0.00 - 0.20 | EXTERNAL | | | Manual | performed at [facility], [address] | K/uL | LAB | | | | [address], | | | | | | [place] [address] | | | | + + + + + + | Absolute | 2.84Comment: Testing | 1.00 - 3.90 | EXTERNAL | | | Lymphocytes | performed at [facility], [address] | K/uL | LAB | | | | [address], | | | | | | [place] [address] | | | | + + + + + + | Absolute | 0.92 (H)Comment: Testing | 0.00 - 0.80 | EXTERNAL | | | Monocytes | performed at [facility], [address] | K/uL | LAB | | | | [address], | | | | | | [place] [address] | | | | + + + + + + | Absolute | 0.75 (H)Comment: Testing | 0.00 - 0.50 | EXTERNAL | | | Eosinophils | performed at [facility], [address] | K/uL | LAB | | | | [address], | | | | | | [place] [address] | | | | + + + + + + | RBC | NORMAL PLT MORPHComment: | | EXTERNAL | | | Morphology | NORMAL RBC MORPHTesting | | LAB | | | | performed at [facility], [address] | | | | | | [address], | | | | | | [place] [address] | | | | + + + [...] EXTERNAL | | | | performed at [facility], [address] | | LAB | | | | [address], | | | | | | [place] [address] | | | | + + + [...] | | | | | [place] [address] | | | | + + + [...] | | | | | [place] [address] | | | | + + + + + + | K | 3.8Comment: Testing | 3.5 - 4.9 | EXTERNAL | | | | performed at [facility], [address] | mmol/L | LAB | | | | [address], | | | | | | [place] [address] | | | | + + + + + + | Cl | 111 (H)Comment: Testing | 99 - 109 mmol/L | EXTERNAL | | | | performed at [facility], [address] | | LAB | | | | [address], | | | | | | [place] [address] | | | | + + + + + + | CO2 | 25Comment: Testing | 23 - 32 mmol/L | EXTERNAL | | | | performed at [facility], [address] | | LAB | | | | [address], | | | | | | [place] [address] | | | | + + + + + + | Anion Gap | 5Comment: Testing | 5 - 20 mmol/L | EXTERNAL | | | | performed at [facility], [address] | | LAB | | | | [address], | | | | | | [place] [address] | | | | + + + + + + | Glucose, | 112 (H)Comment: Testing | 65 - 99 mg/dL | EXTERNAL | | | Fasting | performed at [facility], [address] | | LAB | | | | [address], | | | | | | [place] [address] | | | | + + + + + + | BUN | 13Comment: Testing | 8 - 25 mg/dL | EXTERNAL | | | | performed at [facility], [address] | | LAB | | | | [address], | | | | | | [place] [address] | | | | + + + + + + | Creatinine | 0.74Comment: Testing | 0.50 - 1.00 | EXTERNAL | | | | performed at [facility], [address] | mg/dL | LAB | | | | [address], | | | | | | [place] [address] | | | | + + + + + + | BUN/Creatin | 18Comment: Testing | | EXTERNAL | | | ine Ratio | performed at [facility], [address] | | LAB | | | | [address], | | | | | | [place] [address] | | | | + + + + + + | Calcium | 8.0 (L)Comment: Testing | 8.5 - 10.5 | EXTERNAL | | | | performed at [facility], [address] | mg/dL | LAB | | | | [address], | | | | | | [place] [address] | | | | + + + + + + | Protein, | 5.9 (L)Comment: Testing | 6.3 - 8.2 g/dL | EXTERNAL | | | Total | performed at [facility], [address] | | LAB | | | | [address], | | | | | | [place] [address] | | | | + + + + + + | Albumin | 2.6 (L)Comment: Testing | 3.3 - 4.8 g/dL | EXTERNAL | | | | performed at [facility], [address] | | LAB | | | | [address], | | | | | | [place] [address] | | | | + + + + + + | Globulin | 3.3Comment: Testing | 1.3 - 4.9 g/dL | EXTERNAL | | | | performed at [facility], [address] | | LAB | | | | [address], | | | | | | [place] [address] | | | | + + + + + + | A/G Ratio | 0.8 (L)Comment: Testing | 1.0 - 2.4 | EXTERNAL | | | | performed at [facility], [address] | | LAB | | | | [address], | | | | | | [place] [address] | | | | + + + + + + | Bilirubin | 0.4Comment: Testing | 0.1 - 1.5 mg/dL | EXTERNAL | | | Total | performed at [facility], [address] | | LAB | | | | [address], | | | | | | [place] [address] | | | | + + + + + + | ALP, | 93Comment: Testing | 35 - 115 U/L | EXTERNAL | | | External | performed at [facility], [address] | | LAB | | | | [address], | | | | | | [place] [address] | | | | + + + + + + | AST | 23Comment: Testing | 10 - 45 U/L | EXTERNAL | | | | performed at [facility], [address] | | LAB | | | | [email or web address], | | | | | | [place] [address] | | | | + + + + + + | ALT | 14Comment: Testing | 10 - 65 U/L | EXTERNAL | | | | performed at [facility], [address] | | LAB | | | | [address], | | | | | | [place] [address] | | | | + + + [...] | | | | | [place] [address] | | | | + + + [...] EXTERNAL | | | | performed at [facility], [address] | K/uL | LAB | | | | [address], | | | | | | [place] [address] | | | | + + + + + + | RED CELL | 2.78 (L)Comment: Testing | 3.70 - 5.10 | EXTERNAL | | | COUNT | performed at [facility], [address] | M/uL | LAB | | | | [address], | | | | | | [place] [address] | | | | + + + + + + | Hgb | 9.7 (L)Comment: Testing | 11.3 - 15.5 | EXTERNAL | | | | performed at [facility], [address] | g/dL | LAB | | | | [address], | | | | | | [place] [address] | | | | + + + + + + | Hematocrit, | 29.9 (L)Comment: Testing | 34.0 - 46.0 % | EXTERNAL | | | POC | performed at [facility], [address] | | LAB | | | | [address], | | | | | | [place] [address] | | | | + + + + + + | MCV | 107.5 (H)Comment: | 80.0 - 100.0 fl | EXTERNAL | | | | Testing performed at | | LAB | | | | [facility], [address] | | | | | | [place] | | | | | | [address] | | | | + + + + + + | MCH | 34.9 (H)Comment: Testing | 27.0 - 34.0 pg | EXTERNAL | | | | performed at [facility], [address] | | LAB | | | | [address], | | | | | | [place] [address] | | | | + + + + + + | MCHC | 32.5Comment: Testing | 32.0 - 35.5 | EXTERNAL | | | | performed at [facility], [address] | g/dL | LAB | | | | [address], | | | | | | [place] [address] | | | | + + + + + + | RDW-CV | 57.3 (H)Comment: Testing | 37 - 53 fl | EXTERNAL | | | | performed at [facility], [address] | | LAB | | | | [address], | | | | | | [place] [address] | | | | + + + + + + | Platelet | 162Comment: Testing | 150 - 400 K/uL | EXTERNAL | | | Count | performed at [facility], [address] | | LAB | | | Plasma | [address], | | | | | | [place] [address] | | | | + + + + + + | MPV | 11.6Comment: Testing | fl | EXTERNAL | | | | performed at [facility], [address] | | LAB | | | | [address], | | | | | | [place], [place] [address] | | | | + + + + + + | Differentia | MANUALComment: Testing | | EXTERNAL | | | l Type | performed at [facility], [address] | | LAB | | | | [address], | | | | | | [place], [place] [address] | | | | + + + + + + | Segmented | 31Comment: Testing | % | EXTERNAL | | | Neutrophils | performed at [facility], [address] | | LAB | | | Manual | [address], | | | | | | [place], [place] [address] | | | | + + + + + + | Lymphocytes | 52Comment: Testing | % | EXTERNAL | | | Manual | performed at [facility], [address] | | LAB | | | | [address], | | | | | | [place] [address] | | | | + + + + + + | Monocytes | 11Comment: Testing | % | EXTERNAL | | | Manual | performed at [facility], [address] | | LAB | | | | [address], | | | | | | [place] [address] | | | | + + + + + + | Eosinophils | 6Comment: Testing | % | EXTERNAL | | | Manual | performed at [facility], [address] | | LAB | | | | [address], | | | | | | [place] [address] | | | | + + + + + + | Absolute | 3.19Comment: Testing | 1.90 - 7.40 | EXTERNAL | | | Neutrophils | performed at [facility], [address] | K/uL | LAB | | | | [address], | | | | | | [place] [address] | | | | + + + + + + | Absolute | 5.36 (H)Comment: Testing | 1.00 - 3.90 | EXTERNAL | | | Lymphocytes | performed at [facility], [address] | K/uL | LAB | | | | [address], | | | | | | [place] [address] | | | | + + + + + + | Absolute | 1.13 (H)Comment: Testing | 0.00 - 0.80 | EXTERNAL | | | Monocytes | performed at [facility], [address] | K/uL | LAB | | | | [address], | | | | | | [place] [address] | | | | + + + + + + | Absolute | 0.62 (H)Comment: Testing | 0.00 - 0.50 | EXTERNAL | | | Eosinophils | performed at [facility], [address] | K/uL | LAB | | | | [address], | | | | | | [place] [address] | | | | + + + + + + | RBC | 2+Comment: MACRONORMAL | | EXTERNAL | | | Morphology | PLT MORPHTesting | | LAB | | | | performed at [facility], [address] | | | | | | [address], | | | | | | [place] [address] | | | | | | | [...] EXTERNAL | | | | performed at [facility], [address] | | LAB | | | | [address], | | | | | | [place] [address] | | | | + + + [...] EXTERNAL | | | | performed at [facility], [address] | | LAB | | | | [address], | | | | | | [place] [address] | | | | + + + [...] | | | | | [place] [address] | | | | + + + + + + | K | 4.2Comment: Testing | 3.5 - 4.9 | EXTERNAL | | | | performed at [facility], [address] | mmol/L | LAB | | | | [address], | | | | | | [place] [address] | | | | + + + + + + | Cl | 112 (H)Comment: Testing | 99 - 109 mmol/L | EXTERNAL | | | | performed at [facility], [address] | | LAB | | | | [address], | | | | | | [place] [address] | | | | + + + + + + | CO2 | 27Comment: Testing | 23 - 32 mmol/L | EXTERNAL | | | | performed at [facility], [address] | | LAB | | | | [address], | | | | | | [place] [address] | | | | + + + + + + | Anion Gap | 4 (L)Comment: Testing | 5 - 20 mmol/L | EXTERNAL | | | | performed at [facility], [address] | | LAB | | | | [address], | | | | | | [place] [address] | | | | + + + + + + | Glucose, | 94Comment: Testing | 65 - 99 mg/dL | EXTERNAL | | | Fasting | performed at [facility], [address] | | LAB | | | | [address], | | | | | | [place] [address] | | | | + + + + + + | BUN | 19Comment: Testing | 8 - 25 mg/dL | EXTERNAL | | | | performed at [facility], [address] | | LAB | | | | [address], | | | | | | [place] [address] | | | | + + + + + + | Creatinine | 1.01 (H)Comment: Testing | 0.50 - 1.00 | EXTERNAL | | | | performed at [facility], [address] | mg/dL | LAB | | | | [address], | | | | | | [place] [address] | | | | + + + + + + | BUN/Creatin | 19Comment: Testing | | EXTERNAL | | | ine Ratio | performed at [facility], [address] | | LAB | | | | [address], | | | | | | [place] [address] | | | | + + + + + + | Calcium | 8.1 (L)Comment: Testing | 8.5 - 10.5 | EXTERNAL | | | | performed at [facility], [address] | mg/dL | LAB | | | | [address], | | | | | | [place] [address] | | | | + + + + + + | Protein, | 5.9 (L)Comment: Testing | 6.3 - 8.2 g/dL | EXTERNAL | | | Total | performed at [facility], [address] | | LAB | | | | [address], | | | | | | [place] [address] | | | | + + + + + + | Albumin | 2.5 (L)Comment: Testing | 3.3 - 4.8 g/dL | EXTERNAL | | | | performed at [facility], [address] | | LAB | | | | [address], | | | | | | [place] [address] | | | | + + + + + + | Globulin | 3.4Comment: Testing | 1.3 - 4.9 g/dL | EXTERNAL | | | | performed at [facility], [address] | | LAB | | | | [address], | | | | | | [place] [address] | | | | + + + + + + | A/G Ratio | 0.7 (L)Comment: Testing | 1.0 - 2.4 | EXTERNAL | | | | performed at [facility], [address] | | LAB | | | | [address], | | | | | | [place] [address] | | | | + + + + + + | Bilirubin | 0.3Comment: Testing | 0.1 - 1.5 mg/dL | EXTERNAL | | | Total | performed at [facility], [address] | | LAB | | | | [address], | | | | | | [place] [address] | | | | + + + + + + | ALP, | 98Comment: Testing | 35 - 115 U/L | EXTERNAL | | | External | performed at [facility], [address] | | LAB | | | | [address], | | | | | | [place] [address] | | | | + + + + + + | AST | 24Comment: Testing | 10 - 45 U/L | EXTERNAL | | | | performed at [facility], [address] | | LAB | | | | [address], | | | | | | [place] [address] | | | | + + + + + + | ALT | 14Comment: Testing | 10 - 65 U/L | EXTERNAL | | | | performed at [facility], [address] | | LAB | | | | [facility], | | | | | | [place] [address] | | | | + + + [...] W | | | | | | [email or web address], | | | | | | [place] [address] | | | | + + + [...] [place] | | | | | | [address] | | | | + + +---- + + + | RED CELL | 2.93 (L)Comment: Testing | 3.7 0 - 5.10 | EXTERNAL | | | COUNT | performed at [facility], [address] | [address] | LAB | | | | [address], | | | | | | [place] [address] | | | | + + +---- + + + | Hgb | 10.2 (L)Comment: Testing | 11. 3 - 15.5 | EXTERNAL | | | | performed at [facility], [address] | g/d L | LAB | | | | [address], | | | | | | [place] [address] | | | | + + +---- + + + | Hematocrit, | 31.6 (L)Comment: Testing | 34. 0 - 46.0 % | EXTERNAL | | | POC | performed at [facility], [address] | | LAB | | | | [address], | | | | | | [place] [address] | | | | + + +---- + + + | MCV | 107.8 (H)Comment: | 80. 0 - 100.0 fl | EXTERNAL | | | | Testing performed at | | LAB | | | | [facility], [address] | | | | | | [place] | | | | | | [address] | | | | + + +---- + + + | MCH | 34.8 (H)Comment: Testing | 27. 0 - 34.0 pg | EXTERNAL | | | | performed at [facility], [address] | | LAB | | | | [address], | | | | | | [place] [address] | | | | + + +---- + + + | MCHC | 32.3Comment: Testing | 32. 0 - 35.5 | EXTERNAL | | | | performed at [facility], [address] | g/d L | LAB | | | | [address], | | | | | | [place] [address] | | | | + + +---- + + + | RDW-CV | 57.3 (H)Comment: Testing | 37 - 53 fl | EXTERNAL | | | | performed at [facility], [address] | | LAB | | | | [address], | | | | | | [place] [address] | | | | + + +---- + + + | Platelet | 146 (L)Comment: Testing | 150 - 400 K/uL | EXTERNAL | | | Count | performed at [facility], [address] | | LAB | | | Plasma | [address], | | | | | | [place] [address] | | | | + + +---- + + + | MPV | 11.2Comment: Testing | fl | EXTERNAL | | | | performed at [facility], [address] | | LAB | | | | [address], | | | | | | [place] [address] | | | | + + +---- + + + | Differentia | MANUALComment: Testing | | EXTERNAL | | | l Type | performed at [facility], [address] | | LAB | | | | [address], | | | | | | [place] [address] | | | | + + +---- + + + | Segmented | 58Comment: Testing | % | EXTERNAL | | | Neutrophils | performed at [facility], [address] | | LAB | | | Manual | [address], | | | | | | [place] [address] | | | | + + +---- + + + | % Bands | 20Comment: Testing | % | EXTERNAL | | | | performed at [facility], [address] | | LAB | | | | [address], | | | | | | [place] [address] | | | | + + +---- + + + | Lymphocytes | 13Comment: Testing | % | EXTERNAL | | | Manual | performed at [facility], [address] | | LAB | | | | [address], | | | | | | [place] [address] | | | | + + +---- + + + | Monocytes | 7Comment: Testing | % | EXTERNAL | | | Manual | performed at [facility], [address] | | LAB | | | | [address], | | | | | | [place] [address] | | | | + + +---- + + + | Eosinophils | 2Comment: Testing | % | EXTERNAL | | | Manual | performed at [facility], [address] | | LAB | | | | [address], | | | | | | [place] [address] | | | | + + +---- + + + | Absolute | 9.23 (H)Comment: Testing | 1.9 0 - 7.40 | EXTERNAL | | | Neutrophils | performed at [facility], [address] | [address] | LAB | | | | [address], | | | | | | [place] [address] | | | | + + +---- + + + | Bands | 3.18 (H)Comment: Testing | 0.0 0 - 0.20 | EXTERNAL | | | Manual | performed at [facility], [address] | [address] | LAB | | | | [address], | | | | | | [place] [address] | | | | + + +---- + + + | Absolute | 2.07Comment: Testing | 1.0 0 - 3.90 | EXTERNAL | | | Lymphocytes | performed at [facility], [address] | K/u L | LAB | | | | [address], | | | | | | [place] [address] | | | | + + +---- + + + | Absolute | 1.11 (H)Comment: Testing | 0.0 0 - 0.80 | EXTERNAL | | | Monocytes | performed at [facility], [address] | [address] | LAB | | | | [address], | | | | | | [place] [address] | | | | + + +---- + + + | Absolute | 0.32Comment: Testing | 0.0 0 - 0.50 | EXTERNAL | | | Eosinophils | performed at [facility], [address] | K/u L | LAB | | | | [address], | | | | | | [place] [address] | | | | + + +---- + + + | RBC | 2+Comment: | | EXTERNAL | | | Morphology | MACRO1+ANISONORMAL PLT | | LAB | | | | MORPHTesting performed | | | | | | at [facility], [address] | | | | | | [facility] [employer], | | | | | | [place] [address] | | | | | |Testing performed at [facility], [address] [place] [address] | | | | | | | [...] EXTERNAL | | | | performed at [facility], [address] | | LAB | | | | [address], | | | | | | [place] [address] | | | | + + + [...] | | | | | [place] [address] | | | | + + + [...] | | | | | [place] [address] | | | | + + + + + + | K | 3.9Comment: Testing | 3.5 - 4.9 | EXTERNAL | | | | performed at [facility], [address] | mmol/L | LAB | | | | [address], | | | | | | [place] [address] | | | | + + + + + + | Cl | 109Comment: Testing | 99 - 109 mmol/L | EXTERNAL | | | | performed at [facility], [address] | | LAB | | | | [address], | | | | | | [place] [address] | | | | + + + + + + | CO2 | 24Comment: Testing | 23 - 32 mmol/L | EXTERNAL | | | | performed at [facility], [address] | | LAB | | | | [address], | | | | | | [place] [address] | | | | + + + + + + | Anion Gap | 8Comment: Testing | 5 - 20 mmol/L | EXTERNAL | | | | performed at [facility], [address] | | LAB | | | | [address], | | | | | | [place] [address] | | | | + + + + + + | Glucose, | 98Comment: Testing | 65 - 99 mg/dL | EXTERNAL | | | Fasting | performed at [facility], [address] | | LAB | | | | [address], | | | | | | [place] [address] | | | | + + + + + + | BUN | 25Comment: Testing | 8 - 25 mg/dL | EXTERNAL | | | | performed at [facility], [address] | | LAB | | | | [address], | | | | | | [place] [address] | | | | + + + + + + | Creatinine | 1.39 (H)Comment: Testing | 0.50 - 1.00 | EXTERNAL | | | | performed at [facility], [address] | mg/dL | LAB | | | | [address], | | | | | | [place] [address] | | | | + + + + + + | BUN/Creatin | 18Comment: Testing | | EXTERNAL | | | ine Ratio | performed at [facility], [address] | | LAB | | | | [address], | | | | | | [place] [address] | | | | + + + + + + | Calcium | 8.2 (L)Comment: Testing | 8.5 - 10.5 | EXTERNAL | | | | performed at [facility], [address] | mg/dL | LAB | | | | [address], | | | | | | [place] [address] | | | | + + + + + + | Protein, | 6.1 (L)Comment: Testing | 6.3 - 8.2 g/dL | EXTERNAL | | | Total | performed at [facility], [address] | | LAB | | | | [address], | | | | | | [place] [address] | | | | + + + + + + | Albumin | 2.4 (L)Comment: Testing | 3.3 - 4.8 g/dL | EXTERNAL | | | | performed at [facility], [address] | | LAB | | | | [address], | | | | | | [place] [address] | | | | + + + + + + | Globulin | 3.7Comment: Testing | 1.3 - 4.9 g/dL | EXTERNAL | | | | performed at [facility], [address] | | LAB | | | | [address], | | | | | | [place] [address] | | | | + + + + + + | A/G Ratio | 0.6 (L)Comment: Testing | 1.0 - 2.4 | EXTERNAL | | | | performed at [facility], [address] | | LAB | | | | [address], | | | | | | [place] [address] | | | | + + + + + + | Bilirubin | 0.4Comment: Testing | 0.1 - 1.5 mg/dL | EXTERNAL | | | Total | performed at [facility], [address] | | LAB | | | | [address], | | | | | | [place] [address] | | | | + + + + + + | ALP, | 111Comment: Testing | 35 - 115 U/L | EXTERNAL | | | External | performed at [facility], [address] | | LAB | | | | [address], | | | | | | [place] [address] | | | | + + + + + + | AST | 29Comment: Testing | 10 - 45 U/L | EXTERNAL | | | | performed at [facility], [address] | | LAB | | | | [address], | | | | | | [place] [address] | | | | + + + + + + | ALT | 14Comment: Testing | 10 - 65 U/L | EXTERNAL | | | | performed at [facility], [address] | | LAB | | | | [address], | | | | | | [place] [address] | | | | + + + [...] | | | | | | at [facility], [address] | | | | | | [address], | | | | | | [place] [address] | | | | + + + [...] | | | | [facility], [address] [facility] | | | | | | [place] | | | | | | [address] | | | | + + + + + + | RED CELL | 3.12 (L)Comment: Testing | 3.70 - 5.10 | EXTERNAL | | | COUNT | performed at [facility], [address] | [address]/uL | LAB | | | | [address], | | | | | | [place] [address] | | | | + + + [...] | | | | | [place] [address] | | | | + + + + + + | MCV | 108.0 (H)Comment: | 80.0 - 100.0 fl | EXTERNAL | | | | Testing performed at | | LAB | | | | [facility], [address] | | | | | | [place] | | | | | | [address] | | | | + + + + + + | MCH | 34.7 (H)Comment: Testing | 27.0 - 34.0 pg | EXTERNAL | | | | performed at [facility], [address] | | LAB | | | | [address], | | | | | | [place] [address] | | | | + + + + + + | MCHC | 32.1Comment: Testing | 32.0 - 35.5 | EXTERNAL | | | | performed at [facility], [address] | g/dL | LAB | | | | [address], | | | | | | [place] [address] | | | | + + + + + + | RDW-CV | 55.6 (H)Comment: Testing | 37 - 53 fl | EXTERNAL | | | | performed at [facility], [address] | | LAB | | | | [address], | | | | | | [place] [address] | | | | + + + + + + | Platelet | 153Comment: Testing | 150 - 400 K/uL | EXTERNAL | | | Count | performed at [facility], [address] | | LAB | | | Plasma | [address], | | | | | | [place] [address] | | | | + + + + + + | MPV | 11.2Comment: Testing | fl | EXTERNAL | | | | performed at [facility], [address] | | LAB | | | | [address], | | | | | | [place], [place] [address] | | | | + + + + + + | Differentia | MANUALComment: Testing | | EXTERNAL | | | l Type | performed at [facility], [address] | | LAB | | | | [address], | | | | | | [place], [place] [address] | | | | + + + + + + | Segmented | 64Comment: Testing | % | EXTERNAL | | | Neutrophils | performed at [facility], [address] | | LAB | | | Manual | [address], | | | | | | [place] [address] | | | | + + + + + + | % Bands | 15Comment: Testing | % | EXTERNAL | | | | performed at [facility], [address] | | LAB | | | | [address], | | | | | | [place] [address] | | | | + + + + + + | % | 2Comment: Testing | % | EXTERNAL | | | Metamyelocy | performed at [facility], [address] | | LAB | | | irma | [address], | | | | | | [place] [address] | | | | + + + + + + | Lymphocytes | 12Comment: Testing | % | EXTERNAL | | | Manual | performed at [facility], [address] | | LAB | | | | [address], | | | | | | [place] [address] | | | | + + + + + + | Monocytes | 6Comment: Testing | % | EXTERNAL | | | Manual | performed at [facility], [address] | | LAB | | | | [address], | | | | | | [place] [address] | | | | + + + + + + | Eosinophils | 1Comment: Testing | % | EXTERNAL | | | Manual | performed at [facility], [address] | | LAB | | | | [address], | | | | | | [place] [address] | | | | + + + + + + | Absolute | 11.48 (H)Comment: | 1.90 - 7.40 | EXTERNAL | | | Neutrophils | Testing performed at | K/uL | LAB | | | | [facility], [address] [facility] | | | | | | [place] | | | | | | [address] | | | | + + + + + + | Bands | 2.69 (H)Comment: Testing | 0.00 - 0.20 | EXTERNAL | | | Manual | performed at [facility], [address] | [address] | LAB | | | | [address], | | | | | | [place] [address] | | | | + + + + + + | Absolute | 0.36 (H)Comment: Testing | K/uL | EXTERNAL | | | Metamyelocy | performed at [facility], [address] | | LAB | | | irma | [address], | | | | | | [place] [address] | | | | + + + + + + | Absolute | 2.15Comment: Testing | 1.00 - 3.90 | EXTERNAL | | | Lymphocytes | performed at [facility], [address] | K/uL | LAB | | | | [address], | | | | | | [place] [address] | | | | + + + + + + | Absolute | 1.08 (H)Comment: Testing | 0.00 - 0.80 | EXTERNAL | | | Monocytes | performed at [facility], [address] | [address]L | LAB | | | | [address], | | | | | | [place] [address] | | | | + + + + + + | Absolute | 0.18Comment: Testing | 0.00 - 0.50 | EXTERNAL | | | Eosinophils | performed at [facility], [address] | K[address]L | LAB | | | | [address], | | | | | | [place] [address] | | | | + + + + + + | RBC | 2+Comment: MACRONORMAL | | EXTERNAL | | | Morphology | PLT MORPHTesting | | LAB | | | | performed at [facility], [address] | | | | | | [address], | | | | | | [place] [address] | | | | | | | [...] | | | | performed at [facility];[address] | mmol/L | LAB | | | | [address];[place] | | | | | | [address] | | | | + + + + + + | K | 3.8Comment: Testing | 3.5 - 4.9 | EXTERNAL | | | | performed at [facility];[address] | mmol/L | LAB | | | | [address];[place] | | | | | | [address] | | | | + + + + + + | Cl | 107Comment: Testing | 99 - 109 mmol/L | EXTERNAL | | | | performed at [facility];[address] | | LAB | | | | [address];[place] | | | | | | [address] | | | | + + + + + + | CO2 | 26Comment: Testing | 23 - 32 mmol/L | EXTERNAL | | | | performed at [facility];[address] | | LAB | | | | [address];[place] | | | | | | [address] | | | | + + + + + + | Anion Gap | 12Comment: Testing | 5 - 20 mmol/L | EXTERNAL | | | | performed at [facility];[address] | | LAB | | | | [address];[place] | | | | | | [address] | | | | + + + + + + | Glucose, | 127 (H)Comment: Testing | 65 - 99 mg/dL | EXTERNAL | | | Fasting | performed at [facility];[address] | | LAB | | | | [address];[place] | | | | | | [address] | | | | + + + + + + | BUN | 28 (H)Comment: Testing | 8 - 25 mg/dL | EXTERNAL | | | | performed at [facility];[address] | | LAB | | | | [address];[place] | | | | | | [address] | | | | + + + + + + | Creatinine | 1.8 (H)Comment: Testing | 0.50 - 1.00 | EXTERNAL | | | | performed at [facility];[address] | mg/dL | LAB | | | | [address];[place] | | | | | | [address] | | | | + + + + + + | BUN/Creatin | 16Comment: Testing | | EXTERNAL | | | ine Ratio | performed at [facility];[address] | | LAB | | | | [address];[place] | | | | | | [address] | | | | + + + + + + | Calcium | 7.6 (L)Comment: Testing | 8.5 - 10.5 | EXTERNAL | | | | performed at [facility];[address] | mg/dL | LAB | | | | [address];[place] | | | | | | [address] | | | | + + + [...] | | | | | at [facility];[address];[place] [address] | | | | + + + [...] | | | | | at [facility];[address] [place] [address] | | | | | | [facility];[place] [address] | | | | + + + [...] [place] | | | | | | [address] | | | | + + +---- + + + | RED CELL | 3.07 (L)Comment: Testing | 3.7 0 - 5.10 | EXTERNAL | | | COUNT | performed at [facility], [address] | M/u L | LAB | | | | [address], | | | | | | [place] [address] | | | | + + +---- + + + | Hgb | 10.8 (L)Comment: Testing | 11. 3 - 15.5 | EXTERNAL | | | | performed at [facility], [address] | g/d L | LAB | | | | [address], | | | | | | [place] [address] | | | | + + +---- + + + | Hematocrit, | 32.7 (L)Comment: Testing | 34. 0 - 46.0 % | EXTERNAL | | | POC | performed at [facility], [address] | | LAB | | | | [address], | | | | | | [place] [address] | | | | + + +---- + + + | MCV | 106.4 (H)Comment: | 80. 0 - 100.0 fl | EXTERNAL | | | | Testing performed at | | LAB | | | | [facility], [address] [facility] | | | | | | [place] | | | | | | [address] | | | | + + +---- + + + | MCH | 35.1 (H)Comment: Testing | 27. 0 - 34.0 pg | EXTERNAL | | | | performed at [facility], [address] | | LAB | | | | [address], | | | | | | [place] [address] | | | | + + +---- + + + | MCHC | 33.0Comment: Testing | 32. 0 - 35.5 | EXTERNAL | | | | performed at [facility], [address] | g/d L | LAB | | | | [address], | | | | | | [place] [address] | | | | + + +---- + + + | RDW-CV | 56.0 (H)Comment: Testing | 37 - 53 fl | EXTERNAL | | | | performed at [facility], [address] | | LAB | | | | [address], | | | | | | [place] [address] | | | | + + +---- + + + | Platelet | 151Comment: Testing | 150 - 400 K/uL | EXTERNAL | | | Count | performed at [facility], [address] | | LAB | | | Plasma | [address], | | | | | | [place] [address] | | | | + + +---- + + + | MPV | 11.7Comment: Testing | fl | EXTERNAL | | | | performed at [facility], [address] | | LAB | | | | [address] [place], | | | | | | [place] [address] | | | | + + +---- + + + | Differentia | MANUALComment: Testing | | EXTERNAL | | | l Type | performed at [facility], [address] | | LAB | | | | [address] [place], | | | | | | [place] [address] | | | | + + +---- + + + | Segmented | 57Comment: Testing | % | EXTERNAL | | | Neutrophils | performed at [facility], [address] | | LAB | | | Manual | [address], | | | | | | [place] [address] | | | | + + +---- + + + | % Bands | 26Comment: Testing | % | EXTERNAL | | | | performed at [facility], [address] | | LAB | | | | [address], | | | | | | [place] [address] | | | | + + +---- + + + | % | 4Comment: Testing | % | EXTERNAL | | | Metamyelocy | performed at [facility], [address] | | LAB | | | irma | [address], | | | | | | [place] [address] | | | | + + +---- + + + | Lymphocytes | 9Comment: Testing | % | EXTERNAL | | | Manual | performed at [facility], [address] | | LAB | | | | [address], | | | | | | [place] [address] | | | | + + +---- + + + | Monocytes | 4Comment: Testing | % | EXTERNAL | | | Manual | performed at [facility], [address] | | LAB | | | | [address], | | | | | | [place] [address] | | | | + + +---- + + + | Absolute | 10.53 (H)Comment: | 1.9 0 - 7.40 | EXTERNAL | | | Neutrophils | Testing performed at | K/u L | LAB | | | | [facility], [address] | | | | | | [place] | | | | | | [address] | | | | + + +---- + + + | Bands | 4.80 (H)Comment: Testing | 0.0 0 - 0.20 | EXTERNAL | | | Manual | performed at [facility], [address] | K/u L | LAB | | | | [address], | | | | | | [place] [address] | | | | + + +---- + + + | Absolute | 0.74 (H)Comment: Testing | K/u L | EXTERNAL | | | Metamyelocy | performed at [facility], [address] | | LAB | | | irma | [address] [place], | | | | | | [place] [address] | | | | + + +---- + + + | Absolute | 1.66Comment: Testing | 1.0 0 - 3.90 | EXTERNAL | | | Lymphocytes | performed at [facility], [address] | K/u L | LAB | | | | [address], | | | | | | [place] [address] | | | | + + +---- + + + | Absolute | 0.74Comment: Testing | 0.0 0 - 0.80 | EXTERNAL | | | Monocytes | performed at [facility], [address] | K/u L | LAB | | | [address], | | | | | | [place] [address] | | | | + + +---- + + + | RBC | 2+Comment: | | EXTERNAL | | | Morphology | MACRO1+ANISONORMAL PLT | | LAB | | | | MORPHTesting performed | | | | | | at [facility], [address] | | | | | | [facility], | | | | | | [place] [address] | | | | | |Testing performed at [facility], [address] [facility], [place] [address] | | | | | | | [...] | | | | performed at [facility];[address] | | LAB | | | | [address];[place], [place] | | | | | | [address] | | | | + + + [...] | | | | performed at [facility];[address] | | | | | | [address];[place] | | | | | | [address] | | | | + + + [...] | | | | performed at [facility];[address] | mmol/L | LAB | | | | [address];[place], [place] | | | | | | [address] | | | | + + + [...] | | | | performed at [facility];[address] | mmol/L | LAB | | | | [address];[place] | | | | | | [address] | | | | + + + + + + | K | 4.4Comment: SPECIMEN | 3.5 - 4.9 | EXTERNAL | | | | SLIGHTLY | mmol/L | LAB | | | | HEMOLYZEDTesting | | | | | | performed at [facility];[address] | | | | | | [address];[place] | | | | | | [address] | | | | + + + + + + | Cl | 106Comment: Testing | 99 - 109 mmol/L | EXTERNAL | | | | performed at [facility];[address] | | LAB | | | | [address];[place] | | | | | | [address] | | | | + + + + + + | CO2 | 24Comment: Testing | 23 - 32 mmol/L | EXTERNAL | | | | performed at [facility];[address] | | LAB | | | | [address];[place] | | | | | | [address] | | | | + + + + + + | Anion Gap | 12Comment: Testing | 5 - 20 mmol/L | EXTERNAL | | | | performed at [facility];[address] | | LAB | | | | [address];[place] | | | | | | [address] | | | | + + + + + + | Glucose, | 103 (H)Comment: Testing | 65 - 99 mg/dL | EXTERNAL | | | Fasting | performed at [facility];[address] | | LAB | | | | [address];[place] | | | | | | [address] | | | | + + + + + + | BUN | 22Comment: Testing | 8 - 25 mg/dL | EXTERNAL | | | | performed at [facility];[address] | | LAB | | | | [address];[place] | | | | | | [address] | | | | + + + + + + | Creatinine | 1.9 (H)Comment: Testing | 0.50 - 1.00 | EXTERNAL | | | | performed at [facility];[address] | mg/dL | LAB | | | | [address];[place] | | | | | | [address] | | | | + + + + + + | BUN/Creatin | 12Comment: Testing | | EXTERNAL | | | ine Ratio | performed at [facility];[address] | | LAB | | | | [address];[place] | | | | | | [address] | | | | + + + + + + | Calcium | 7.4 (L)Comment: Testing | 8.5 - 10.5 | EXTERNAL | | | | performed at [facility];[address] | mg/dL | LAB | | | | [address];[place] | | | | | | [address] | | | | + + + + + + | Protein, | 6.5Comment: Testing | 6.3 - 8.2 g/dL | EXTERNAL | | | Total | performed at [facility];[address] | | LAB | | | | [address];[place] | | | | | | [address] | | | | + + + + + + | Albumin | 2.2 (L)Comment: Testing | 3.3 - 4.8 g/dL | EXTERNAL | | | | performed at [facility];[address] | | LAB | | | | [address];[place] | | | | | | [address] | | | | + + + + + + | Globulin | 4.4Comment: Testing | 1.3 - 4.9 g/dL | EXTERNAL | | | | performed at [facility];[address] | | LAB | | | | [address];[place] | | | | | | [address] | | | | + + + + + + | A/G Ratio | 0.5 (L)Comment: Testing | 1.0 - 2.4 | EXTERNAL | | | | performed at [facility];[address] | | LAB | | | | [address];[place] | | | | | | [address] | | | | + + + + + + | Bilirubin | 0.5Comment: Testing | 0.1 - 1.5 mg/dL | EXTERNAL | | | Total | performed at [facility];[address] | | LAB | | | | [address];[place] | | | | | | [address] | | | | + + + + + + | ALP, | 148 (H)Comment: Testing | 35 - 115 U/L | EXTERNAL | | | External | performed at [facility];[address] | | LAB | | | | [address];[place] | | | | | | [address] | | | | + + + + + + | AST | 41Comment: SPECIMEN | 10 - 45 U/L | EXTERNAL | | | | SLIGHTLY | | LAB | | | | HEMOLYZEDTesting | | | | | | performed at [facility];[address] | | | | | | [address];[place] | | | | | | [address] | | | | + + + + + + | ALT | 23Comment: Testing | 10 - 65 U/L | EXTERNAL | | | | performed at [facility];[address] | | LAB | | | | [address];[place] | | | | | | [address] | | | | + + [...] | | | | | at [facility];[address] | | | | | [address];[place] [address] | | | | + + + [...] WORKUP | | | Testing performed at [facility], [address] [place], [place] | | | [address] | | + + + + +---------+ [...] EXTERNAL | | | | performed at [facility], [address] | | LAB | | | | [address], | | | | | | [place] [address] | | | | + + + + + + | Clarity | CLOUDYComment: Testing | | EXTERNAL | | | | performed at [facility], [address] | | LAB | | | | [address] [place], | | | | | | [place] [address] | | | | + + + + + + | Specific | 1.015Comment: Testing | 1.002 - 1.030 | EXTERNAL | | | [place] | performed at [facility], [address] | | LAB | | | | [address], | | | | | | [place] [address] | | | | + + + + + + | Leukocyte | SMALL (A)Comment: | | EXTERNAL | | | Esterase, | Testing performed at | | LAB | | | Urine | [facility], [address] | | | | | | [place] | | | | | | [address] | | | | + + + + + + | Nitrite, | NEGATIVEComment: Testing | | EXTERNAL | | | Urine | performed at [facility], [address] | | LAB | | | | [address], | | | | | | [place] [address] | | | | + + + + + + | Urobilinoge | 0.2Comment: Testing | mg/dL | EXTERNAL | | | n, Urine | performed at [facility], [address] | | LAB | | | | [address], | | | | | | [place] [address] | | | | + + + + + + | Protein, | 100 (A)Comment: Testing | mg/dL | EXTERNAL | | | Urine | performed at [facility], [address] | | LAB | | | | [place] [address], | | | | | | [place] [address] | | | | + + + + + + | pH, Urine | 6.5Comment: Testing | 5.0 - 8.0 | EXTERNAL | | | | performed at [facility], [address] | | LAB | | | | [place], | | | | | | [place] [id number] | | | | + + + + + + | Blood, | MODERATE (A)Comment: | | EXTERNAL | | | Urine | Testing performed at | | LAB | | | | [facility], [address] | | | | | | [place] | | | | | | [address] | | | | + + + [...] | | | | | [place] [address] | | | | + + + + + + | Glucose, | NEGATIVEComment: Testing | mg/dL | EXTERNAL | | | Urine | performed at [facility], [address] | | LAB | | | | [address], | | | | | | [place] [address] | | | | + + + [...] | | | | | [place] [address] | | | | + + + + + + | RBC, UA | 1-5Comment: Testing | 0 - 5 /hpf | EXTERNAL | | | | performed at [facility], [address] | | LAB | | | | [address], | | | | | | [place] [address] | | | | + + + + + + | Epithelial | 0-2Comment: Testing | /lpf | EXTERNAL | | | Cells | performed at [facility], [address] | | LAB | | | | [address], | | | | | | [place] [address] | | | | + + + + + + | Bacteria, | TRACE (A)Comment: | | EXTERNAL | | | UA | Testing performed at | | LAB | | | | [facility], [address] | | | | | | [place] | | | | | | [address] | | | | + + + + + + | Urinalysis | CULTURE TO | | EXTERNAL | | | Comments | FOLLOWComment: Testing | | LAB | | | | performed at [facility], [address] | | | | | | [address], | | | | | | [place] [address] | | | | + + + [...] | | | | performed at [facility];[address] | mg/dL | LAB | | | | [address] [place] | | | | | | [address] | | | | + + + [...] | | C.diffAbnormal Testing performed at [facility];[address] [place] [address] | | | [phone] NAP1 BI 027 NAP1 BI | | | PRESUMPTIVE NEGATIVE Detection of 027 NAP1 BI strains of C. difficile | | | is presumptive and for epidemiological purposes and not intended to | | | guide or monitor treatment for C. difficile infections. Testing | | | performed at [facility];[address] [place] [address];[place] [address] | | + + + + +---------+ [...] | | | | performed at [facility];[address] | mmol/L | LAB | | | | [address];[place], [place] | | | | | | [address] | | | | + + + [...] | | | | | at [facility];[address] | | | | | | [facility];[place] [address] | | | | + + + [...] | | | | performed at [facility] | | LAB | | | | [address];[place], [place] | | | | | | [address] [...] | | | | performed at [facility] | | | | | | [facility];[place], [place] | | | | | | [address] | | | | + + + [...] | LAB | | | | [facility];[address] | | | | | | [address];[place] [address] | | | | + + + + + + | RED CELL | 3.66 (L)Comment: Testing | 3.70 - 5.10 | EXTERNAL | | | COUNT | performed at [facility] | M/uL | LAB | | | | [address];[place] | | | | | | [address] | | | | + + + + + + | Hgb | 12.6Comment: Testing | 11.3 - 15.5 | EXTERNAL | | | | performed at [facility];888 | g/dL | LAB | | | | [address];[place] | | | | | | [address] | | | | + + + + + + | Hematocrit, | 38.9Comment: Testing | 34.0 - 46.0 % | EXTERNAL | | | POC | performed at [facility];[address] | | LAB | | | | [address];[place] | | | | | | [address] | | | | + + + + + + | MCV | 106.3 (H)Comment: | 80.0 - 100.0 fl | EXTERNAL | | | | Testing performed at | | LAB | | | | [facility];[address] | | | [address];[place] [address] | | | | + + + + + + | MCH | 34.3 (H)Comment: Testing | 27.0 - 34.0 pg | EXTERNAL | | | | performed at [facility];[address] | | LAB | | | | [address];[place] | | | | | | [address] | | | | + + + + + + | MCHC | 32.3Comment: Testing | 32.0 - 35.5 | EXTERNAL | | | | performed at [facility];888 | g/dL | LAB | | | | [address];[place] | | | | | | [address] | | | | + + + + + + | RDW-CV | 54.7 (H)Comment: Testing | 37 - 53 fl | EXTERNAL | | | | performed at [facility];[address] | | LAB | | | | [address];[place] | | | | | | [address] | | | | + + + + + + | Platelet | 167Comment: Testing | 150 - 400 K/uL | EXTERNAL | | | Count | performed at [facility];[address] | | LAB | | | Plasma | [address];[place] | | | | | | [address] | | | | + + + + + + | MPV | 10.6Comment: Testing | fl | EXTERNAL | | | | performed at [facility];[address] | | LAB | | | | [address];[place] | | | | | | [address] | | | | + + + + + + | Differentia | MANUALComment: Testing | | EXTERNAL | | | l Type | performed at [facility];[address] | | LAB | | | | [address];[place] | | | | | | [address] | | | | + + + + + + | Segmented | 54Comment: Testing | % | EXTERNAL | | | Neutrophils | performed at [facility];[address] | | LAB | | | Manual | [address];[place] | | | | | | [address] | | | | + + + + + + | % Bands | 18Comment: Testing | % | EXTERNAL | | | | performed at [facility];[address] | | LAB | | | | [address];[place] | | | | | | [address] | | | | + + + + + + | Lymphocytes | 16Comment: Testing | % | EXTERNAL | | | Manual | performed at [facility];[address] | | LAB | | | | [address];[place] | | | | | | [address] | | | | + + + + + + | Monocytes | 12Comment: Testing | % | EXTERNAL | | | Manual | performed at [facility];[address] | | LAB | | | | [address];[place] | | | | | | [address] | | | | + + + + + + | Absolute | 10.69 (H)Comment: | 1.90 - 7.40 | EXTERNAL | | | Neutrophils | Testing performed at | K/uL | LAB | | | | [facility];[address] | | | [address];[place] [address] | | | | + + + + + + | Bands | 3.56 (H)Comment: Testing | 0.00 - 0.20 | EXTERNAL | | | Manual | performed at [facility];[address] | K/uL | LAB | | | | [address];[place] | | | | | | [address] | | | | + + + + + + | Absolute | 3.16Comment: Testing | 1.00 - 3.90 | EXTERNAL | | | Lymphocytes | performed at [facility];[address] | K/uL | LAB | | | | [address];[place] | | | | | | [address] | | | | + + + + + + | Absolute | 2.37 (H)Comment: Testing | 0.00 - 0.80 | EXTERNAL | | | Monocytes | performed at [facility];[address] | K/uL | LAB | | | | [address];[place] | | | | | | [address] | | | | + + + + + + | Platelet | ADEQUATEComment: Testing | | EXTERNAL | | | Estimate | performed at [facility];[address] | | LAB | | | | [address];[place] | | | | | | [address] | | | | + + + + + + | RBC | NORMAL PLT MORPHComment: | | EXTERNAL | | | Morphology | 1+ANISOTesting | | LAB | | | | performed at [facility];[address] | | | | | | [address];[place] | | | | | | [address] | | | | | | | [...] | | | | performed at [facility];[address] | uIU/mL | LAB | | | | [address];[place], [place] | | | | | | [address] | | | | + + + [...] | | | | performed at [facility];[address] | | LAB | | | | [address];[place], [place] | | | | | | [address] | | | | + + + [...] | LAB | | | | [facility];[address] | | | | | | [address];[place] [address] | | | | + + + [...] | | | | performed at [facility];[address] | | LAB | | | | [address];[place], [place] | | | | | | [address] | | | | + + + [...] | | | | performed at [facility];[address] | | LAB | | | | [address];[place] | | | | | | [address] | | | | + + + [...] | | | | performed at [facility];[address] | mmol/L | LAB | | | | [address];[place] | | | | | | [address] | | | | + + + + + + | K | 3.4 (L)Comment: Testing | 3.5 - 4.9 | EXTERNAL | | | | performed at [facility];[address] | mmol/L | LAB | | | | [address];[place] | | | | | | [address] | | | | + + + + + + | Cl | 101Comment: Testing | 99 - 109 mmol/L | EXTERNAL | | | | performed at [facility];[address] | | LAB | | | | [address];[place] | | | | | | [address] | | | | + + + + + + | CO2 | 27Comment: Testing | 23 - 32 mmol/L | EXTERNAL | | | | performed at [facility];[address] | | LAB | | | | [address];[place] | | | | | | [address] | | | | + + + + + + | Anion Gap | 12Comment: Testing | 5 - 20 mmol/L | EXTERNAL | | | | performed at [facility];[address] | | LAB | | | | [address];[place] | | | | | | [address] | | | | + + + + + + | Glucose, | 106 (H)Comment: Testing | 65 - 99 mg/dL | EXTERNAL | | | Fasting | performed at [facility];[address] | | LAB | | | | [address];[place] | | | | | | [address] | | | | + + + + + + | BUN | 18Comment: Testing | 8 - 25 mg/dL | EXTERNAL | | | | performed at [facility];[address] | | LAB | | | | [address];[place] | | | | | | [address] | | | | + + + + + + | Creatinine | 1.3 (H)Comment: Testing | 0.50 - 1.00 | EXTERNAL | | | | performed at [facility];[address] | mg/dL | LAB | | | | [address];[place] | | | | | | [address] | | | | + + + + + + | BUN/Creatin | 14Comment: Testing | | EXTERNAL | | | ine Ratio | performed at [facility];[address] | | LAB | | | | [address];[place] | | | | | | [address] | | | | + + + + + + | Calcium | 7.3 (L)Comment: Testing | 8.5 - 10.5 | EXTERNAL | | | | performed at [facility];[address] | mg/dL | LAB | | | | [address];[place] | | | | | | [address] | | | | + + + + + + | Protein, | 7.9Comment: Testing | 6.3 - 8.2 g/dL | EXTERNAL | | | Total | performed at [facility];[address] | | LAB | | | | [address];[place] | | | | | | [address] | | | | + + + + + + | Albumin | 2.5 (L)Comment: Testing | 3.3 - 4.8 g/dL | EXTERNAL | | | | performed at [facility];[address] | | LAB | | | | [address];[place] | | | | | | [address] | | | | + + + + + + | Globulin | 5.4 (H)Comment: Testing | 1.3 - 4.9 g/dL | EXTERNAL | | | | performed at [facility];[address] | | LAB | | | | [address];[place] | | | | | | [address] | | | | + + + + + + | A/G Ratio | 0.5 (L)Comment: Testing | 1.0 - 2.4 | EXTERNAL | | | | performed at [facility];[address] | | LAB | | | | [address];[place] | | | | | | [address] | | | | + + + + + + | Bilirubin | 0.6Comment: Testing | 0.1 - 1.5 mg/dL | EXTERNAL | | | Total | performed at [facility];[address] | | LAB | | | | [address];[place] | | | | | | [address] | | | | + + + + + + | ALP, | 188 (H)Comment: Testing | 35 - 115 U/L | EXTERNAL | | | External | performed at [facility];[address] | | LAB | | | | [address];[place] | | | | | | [address] | | | | + + + + + + | AST | 51 (H)Comment: Testing | 10 - 45 U/L | EXTERNAL | | | | performed at [facility];[address] | | LAB | | | | [address];[place] | | | | | | [address] | | | | + + + + + + | ALT | 30Comment: Testing | 10 - 65 U/L | EXTERNAL | | | | performed at [facility];[address] | | LAB | | | | [address];[place] | | | | | | [address] | | | | + + + [...] | | | | | at [facility];[address];[place] [address] | | | | + + + [...] Conversion - 01/05/2019 4:32 AM PDT COLE [id number] yearsXR | | CHEST 1 VIEW01/28/2015 2:40 [...]
--- OUTSIDE RECORDS SUMMARY | ~2019-06-03 | XMS | Encounter Summary ---
Demographics + + + | Address | [address] | | | [place] [address] | + + + | Home Phone [...] Team Providers + +------+ + | Care Student Liaison Officer Name | Role | Phone | + +------+ + | Rick Osorio DO | PCP | | + +------+ + Encounter Details +--------+ + + + + | Date | Type | Department | Care Team | Description | +--------+ + + + + | 11/15/ | Orders Only | [facility] | Emil Oliva MD | | | 2014 | | NEPRHOLOGY [place] | [address] [facility] | | | | | [address] | [address] [place], [place] | | | | | [address] [place], [place] | [address] | | | | | [address] | | | | | | [phone] | | | +--------+ + + + [...] | | | LAB | | | [facility] | | | | | + + [...]
--- OUTSIDE RECORDS SUMMARY | ~2019-06-03 | XMS | Encounter Summary ---
Demographics + + + | Address | [address] | | | [place] [address] | + + + | Home Phone [...] Team Providers + +------+ + | Care Typing Section Chief Name | Role | Phone | + +------+ + | Rick Osorio DO | PCP | | + +------+ + Encounter Details +--------+ + + + + | Date | Type | Department | Care Team | Description | +--------+ + + + + | 11/15/ | Orders Only | [facility] | Emil Oliva MD | | | 2014 | | [place]HOLOGY [place] | [address] [facility] | | | | | [address] | [address] [place], [place] | | | | | [address] [place], [place] | [address] | | | | | [address] | | | | | | [phone] | | | +--------+ + + + [...] | | | LAB | | | [facility] | | | | | + + [...]
--- OUTSIDE RECORDS SUMMARY | ~2019-06-03 | XMS | Encounter Summary ---
Demographics + + + | Address | [address] | | | [place] [address] | + + + | Home Phone [...] Team Providers + +------+ + | Care Casing Operator Name | Role | Phone | [...] [place], [place] | | | | | [place], [place] | [address] | | | | | [address] | | | | | | [phone] | | | +--------+ + + + [...] 0.03 m/s | | | MV Dec [place]: 9.74 m/s2 MV DecT: 91.63 ms MV E Billy: 0.89 | | | m/s MV E/A Ratio: 26.03 MV PHT: 26.57 ms MVA By PHT: 8.27 | | | cm2 Septal e': 0.06 m/s Septal E/e': 12.90 Lateral e': | | | 0.09 m/s Lateral E/e': 8.96 RAP: 5 mmHg RVSP: 17.59 mmHg | | | TR maxP.59 mmHg TR Vmax: 1.77 m/s Cotton Bag Sewer: ANIF | | | Authenticated by: Conor [place] Report Date/Time: -- | | | [id number]:12 | | + + + + + [...] cmLVPWd: 1.14 cmLVOT | | Area: 3.33 [id number] Diam: 2.06 cm%FS: 26.43 %EF(Teich): 51.67 %ESV(Teich): [...] (A-L): | | 45.82 ml/m2LAAs A2C: 22.15 [id number] A-L A2C: 71.25 mlLALs A2C: 5.84 cmLAAs A4C: | | 28.64 [id number] A-L A4C: 104.24 mlLALs A4C: 6.68 cmRAAs: 14.65 [id number] A-L: | | 33.90 mlRAESV MOD: 34.21 mlRALs: 5.37 cmAV maxP.81 mmHgAV meanP.70 | | mmHgAV Vmax: 1.30 m/Sorin Vmean: 0.90 m/Sorin VTI: 24.74 cmAVA Vmax: 2.36 cm2AVA | | (VTI): 2.24 bl3TQWA maxP.41 mmHgLVOT meanP.88 mmHgLVSI Dopp: 27.63 | | ml/m2LVSV Dopp: 55.54 mlLVOT Vmax: 0.92 m/sLVOT Vmean: 0.64 m/sLVOT VTI: 16.66 | | cmMV A Billy: 0.03 m/sMV Dec [place]ip[place]: 9.74 m/s2MV DecT: 91.63 msMV E Billy: 0.89 m/sMV | | E/A Ratio: 26.03MV PHT: 26.57 msMVA By PHT: 8.27 mo3Iecqve e': 0.06 m/sSeptal | | E/e': 12.90Lateral e': 0.09 m/sLateral E/e': 8.96RAP: 5 mmHgRVSP: 17.59 mmHgTR | | maxP.59 mmHgTR Vmax: 1.77 m/s Cotton Bag Sewer: DHAuthenticated by: Conor | | [facility] Date/Time: -- [id number]:12 IMPRESSION: 1. The left ventricle is | [...] A Billy: 0.03 m/s | |MV Dec [place]: 9.74 m/s2 | |MV DecT: 91.63 ms [...] |TR Vmax: 1.77 m/s | | | |Cotton Bag Sewer: NAIF | |Authenticated by: Conor Garcia | |Report Date/Time: -- [id number]:51:12 | | | |IMPRESSION: | |1. The [...]
--- OUTSIDE RECORDS SUMMARY | ~2019-06-03 | XMS | Encounter Summary ---
Demographics + + + | Address | [address] | | | [place] [address] | + + + | Home Phone [...] Team Providers + +------+ + | Care Coach Name | Role | Phone | + +------+ + | Rick Osorio DO | PCP | | + +------+ + Encounter Details +--------+ + + + + | Date | Type | Department | Care Team | Description | +--------+ + + + + | 12/05/ | Orders Only | [facility] | Emil Oliva MD | | | 2013 | | [place]HOLOGY [place] | [address] | | | | | [address] | [address] [place], [place] | | | | | [address] [place], [place] | [address] | | | | | [address] | | | | | | [phone] | | | +--------+ + + + [...]
--- OUTSIDE RECORDS SUMMARY | ~2019-06-03 | XMS | Encounter Summary ---
Demographics + + + | Address | [address] | | | [place] [address] | + + + | Home Phone [...] Team Providers + +------+ + | Care Teaching Supervisor Name | Role | Phone | + +------+ + | oYvani Santana MD | PCP | | + +------+ + Encounter Details +--------+ + + + + | Date | Type | Department | Care Team | Description | +--------+ + + + + | 01/14/ | Hospital [facility] | Jennifer Hartman MD | Near syncope; | | 2015 - | Encounter | [facility] | [address] | Elevated troponin; | | | | CARE FLOOR [address] | [place] [address] | Non-STEMI (non-ST | | 01/19/ | | [address] | [phone] | elevated myocardial | | 2015 | | [place], [place] | | infarction) ([facility]); | | | | [address] | | CKD (chronic kidney | | | | [phone] | | disease), | | | | | | unspecified stage; | | | | | | Leukocytosis; ZULAY | | | | | | (acute kidney | | | | | | injury) ([facility]); Liver | | | | | | replaced by | | | | | | transplant ([facility]) | +--------+ + + + [...] of Service: 01/19/15 0753 Status: Signed Manager Financial: Emma Hardy MD (Physician) Related Notes: Original Note by Emma Hardy MD (Physician) filed at 01/19/15 0800 [facility] Service: Hospitalist Physician [...] history of chronic pain, on chronic methadone, 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 The patient was taken off methadone about 3 weeks prior to admission. Pre vious creatinine was 1.38 and the patient was presented at [facility] in [place] , was found to have elevated troponin of 0.55 and noted to have creatinine of 2.4 and leukoc ytosis and was transferred for srf-VK-mrcknjymb [place]Y. HOSPITAL COURSE The patient was admitted with suf-KD-xuaqziweb WY. Cardiology consult was obtained. She was started [...] lipid-lowerin g therapy. The patient also has vtvgv-rm-twgpbxz kidney disease, stage III. Acute renal fail [...] follow up with biopsy results with Dr. Ramye. The patient also was noted to have severe protein calorie malnutrition and system administration manager was consulted. Her blood pressures remain stable. [...] 1.5* 1.8 1.4* Invalid input(s): ABG Disposition: nursing home facility Follow up: Ki De Jesus DO [address] [facility] [address] [place] [address] Schedule an appointment as soon as possible for a visit in 4 days Juan Ramey MD [address] [facility] [address] [facility] [address] Schedule an appointment as soon as possible for a visit in 1 week Follow up biopsy results Juju Riggins MD [address] [place] [address] Schedule an appointment as soon as [...] the prescriptions that you need to pick up and delivery driver. You may get the following medications from [...] summary. This entry has been created using Pond5 Speech Recognition software and Stylr. The entry has been reviewed and there [...] of Service: 01/19/15 1300 Status: Signed Manager Financial: Shaista Lin RN (Registered Nurse) Pt discharged via wheel chair on 2 L of oxygen. To [facility] in [place]. Pt alert and o rientedX4. onver alessandro Transaction, Provider Unknown - 01/19/2015 8:20 AM PDT Case Management by PHUONG Roman at 01/19/15819 Author: PHUONG Roman Service: (none) Author Type: Churn Operator Filed: 01/19/15819 Date of Service: 01/19/15819 Status: Signed Manager Financial: PHUONG Roman (Churn Operator) Disposition: [facility] Transportation: facility van All orders, [...] 0625 Date of Service: 01/19/15412 Status: Signed Manager Financial: Yady Singh RN (Registered Nurse) Patient resting quietly all night. Medicated once for all over general pain. No further com plaints. VSS. onver alessandro Transaction, Provider Unknown - 01/18/2015 3:21 PM PDT Case Management by PHUONG Roman at 01/18/15 1521 Author: PHUONG Roman Service: (none) Author Type: Churn Operator Filed: 01/18/15 1521 Date of Service: 01/18/15 1521 Status: Signed Manager Financial: PHUONG Roman (Churn Operator) spoke w/ Will at [facility] who reports they can accept and transport pt tomorrow AM. PHUONG Roman osangela Kirk MD - 01/18/2015 3:10 PM PDT Progress Notes by Rosangela Steinberg MD at 01/18/15 1510 Author: Rosangela Steinberg MD Service: Infectious Disease Author Type: Physician Filed: 01/18/15 3218 Date of Service: 01/18/15 1510 Status: Signed Manager Financial: Rosangela Steinberg MD (Physician) [facility] Service: Infectious Disease Progress Note [...] vomiting and diarrhea. Had initially presented to [facility] in [place] with similar complaints. Was foun d to have an elevated troponin. She was mainly admitted as a non-STEMI. Found to have a leuk ocytosis. Since patient is immunocompromised, she was started empirically on IV ceftriaxone. Chest x-ray showed no infiltrate. Patient denies any recent fevers or chills. She went to [facility] mainly becau se of syncope. Prior [...] extraluminal fluid collection abdomen pelvis without contrast [[id number]] Impression 1. Hypoinflated chest, but no evident infiltrate chest 1 view [[id number]] Impression 1. Indication for study and thus [...] 1445 Date of Service: 01/18/15748 Status: Signed Manager Financial: Emma Hardy MD (Physician) [facility] Service: Hospitalist Progress Note Hospital [...] (HCC) ASSESSMENT & PLAN 1. Non-ST elevation WY. Possible demand ischemia. Will schedule for nuclear [...] AM This entry has been created using Pond5 Speech Recognition software and Stylr. The entry has been reviewed and there may still exist sound alike word errors. onversion Trans action, Provider Unknown - 01/18/2015 5:16 AM PDT Nurse Progress Note by Yady Singh RN at 01/18/15515 Author: Yady Singh RN Service: (none) Author Type: Registered Nurse Filed: 01/18/152104 Date of Service: 01/18/15515 Status: Signed Manager Financial: Yady Snigh RN (Registered Nurse) Pt taken to endoscopy [...] Date of Service: 01/17/15 162 Status: Signed Manager Financial: Jose Maria Espinal MD (Physician) Related Notes: Original Note by Jose Maria Espinal MD (Physician) filed at 01/17/152012 [facility] Service: Hospitalist Progress Note Pt: Cole Ernst AGE/SEX: 69 y.o. female : 1945 ROOM: [address] [place] [address] History of Present Illness: " The patient [...] who called EMS. Patient was taken to [facility] in [place]. Susie ent was noted to have a [...] Patient had borderline blood pressure. While at [facility] with systolic in the low 90s. Heart [...] CT done several days ago while in [place]. She also stat es that her vomiting and diarrhea have significantly improved. She denies any fevers, hemat emesis, melena, bright red blood per rectum, hematuria, dysuria, she denies any leg pain or swelling. No palpitations. She states she does have a history of "kidney disease" and was told that it was secondary to cyclosporine. However, she is not seen kidney specialist [facility] e her liver transplant.".....per admitting [...] collected as n oted. I urged the staffing branch manager to introduce a hat so that [...] contrast. Prior study for comparison: None FINDINGS: Manuscripts Archivist 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 deg enerative changes of [...] LA/Ao: 1.57 D-E Excursion: 2.11 cm E-F [place]: 0.09 m/s EPSS: 0.48 cm HR: 77.41 [...] TV A Billy: 0.66 m/s TV Dec [place]: 4.36 m/s2 TV Dec Time: 184.41 ms TV E Billy: 0.80 m/s TV E/A Rat io: 1.21 Plumbing Mechanic: NEDRA Authenticated by: Gil Coronel MD [...] nutritional supplements as recommend ed by nutrition service/system administration manager. Jose Maria Espinal MD 01/17/2015 4:29 PM onversion Transa ction, Provider Unknown - 01/17/2015 3:15 PM PDT Case Management by PHUONG Sandhu at 01/17/15 1515 Author: PHUONG Sandhu Service: (none) Author Type: Photography Colorist Filed: 01/17/15 1518 Date of Service: 01/17/155 Status: Signed Manager Financial: PHUONG Sandhu (Photography Colorist) 01/17/15 1500 Discharge Planning Evaluation Admitting Diagnosis Near syncope, elevated tropinin, non-stemi, CKD Anticipated Disposition Facility Type nursing home facility Medicare Important Message (MEREDITH) Given [facility] Other (comment) ([facility]) CAMP MAINTENANCE SUPERVISOR met with Pt for discharge planning, on board with going to [facility] when medically ready. CAMP MAINTENANCE SUPERVISOR p/c to [facility] - will accept Pt when medically ready. [facility] (73 miles) [address] [place] [address], [place] Factory Maintenance Technician: Will DCP: [facility] Transportation: [facility] Facility Van - Factory Maintenance Technician: Will [phone] Medicare important message signed and copy in chart LUIS FOUNTAIN, Churn Operator [phone] cell Rosangela Zavala MD - 01/17/2015 1:11 PM PDT Progress Notes by Rosangela Steinberg MD at 01/17/15 1311 Author: Rosangela Steinberg MD Service: Infectious Disease Author Type: Physician Filed: 01/17/15 6690 Date of Service: 01/17/15 1311 Status: Signed Manager Financial: Rosangela Steinberg MD (Physician) [facility] Service: Infectious Disease Progress Note [...] vomiting and diarrhea. Had initially presented to [facility] in [place] with similar complaints. Was foun d to have an elevated troponin. She was mainly admitted as a non-STEMI. Found to have a leuk ocytosis. Since patient is immunocompromised, she was started empirically on IV ceftriaxone. Chest x-ray showed no infiltrate. Patient denies any recent fevers or chills. She went to [facility] mainly becau se of syncope. Prior [...] extraluminal fluid collection abdomen pelvis without contrast [[id number]] Impression 1. Hypoinflated chest, but no evident infiltrate chest 1 view [[id number]] Impression 1. Indication for study and thus [...] Date of Service: 01/16/152127 Status: Signed Manager Financial: Juju Riggins MD (Physician) [facility] Service: Cardiology Progress Note Hospital [...] Author: PHUONG Sandhu Service: (none) Author Type: Photography Colorist Filed: 01/16/156 Date of Service: 01/16/151642 Status: Signed Manager Financial: PHUONG Sandhu (Photography Colorist) 01/16/15 1600 Discharge Planning Evaluation Admitting Diagnosis Near syncope, elevated tropinin, non-stemi, CKD Anticipated Disposition Facility Type nursing home facility [facility] Facility Other (comment) ([facility]) PHUONG received p/c from Will, admissions at [facility], states they are willi ng to accept Pt to their [facility] Facility, states their house physician will not pre scribe Methadone. Will states she will start authorization process with [employer] who is Managing the Medicare benefits. Will states the first 20 days are covered at 100% then day 21 will be $100.00 a day. DCP: [facility] or Home LUIS FOUNTAIN,Churn Operator [phone] cell Jose Maria Grimes MD - 01/16/2015 11:29 AM PDTFormatting of this note might be different from th e original. Progress Notes by Jose Maria Espinal MD at 01/16/15 1129 Author: Jose Maria Espinal MD Service: Hospitalist Author Type: Physician Filed: 01/17/15 1149 Date of Service: 01/16/15 1129 Status: Signed Manager Financial: Jose Maria Espinal MD (Physician) Related Notes: Original Note by Jose Maria Espinal MD (Physician) filed at 01/16/15 1137 [facility] Service: Hospitalist Progress Note Pt: Cole Ernst AGE/SEX: 69 y.o. female : 1945 ROOM: [address] [place] [address] History of Present Illness: " The patient [...] who called EMS. Patient was taken to [facility] in [place]. Susie ent was noted to have a [...] Patient had borderline blood pressure. While at [facility] with systolic in the low 90s. Heart [...] CT done several days ago while in [place]. She also stat es that her vomiting and diarrhea have significantly improved. She denies any fevers, hemat emesis, melena, bright red blood per rectum, hematuria, dysuria, she denies any leg pain or swelling. No palpitations. She states she does have a history of "kidney disease" and was told that it was secondary to cyclosporine. However, she is not seen kidney specialist [facility] e her liver transplant.".....per admitting [...] collected as n oted. I urged the staffing branch manager to introduce a hat so that [...] contrast. Prior study for comparison: None FINDINGS: Manuscripts Archivist 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 deg enerative changes of [...] LA/Ao: 1.57 D-E Excursion: 2.11 cm E-F [place]: 0.09 m/s EPSS: 0.48 cm HR: 77.41 [...] TV A Billy: 0.66 m/s TV Dec [place]: 4.36 m/s2 TV Dec Time: 184.41 ms TV E Billy: 0.80 m/s TV E/A Rat io: 1.21 Plumbing Mechanic: NEDRA Authenticated by: Gil Coronel MD [...] of Service: 01/16/15 1102 Status: Signed Manager Financial: Natalio Benito PT (Physical Therapist) 01/16/15 1102 PT Last Visit PT Received On 01/16/15 Reason for Treatment Deconditioning;Other (comment) (NSTEMI; Syncope) Requires PT Follow Up Awaiting tx order Follow up PT Only? No PT Eval/Reassessment Date 01/16/15 Assistance Required 1 person Middleware Developer Needed No Home Environment Type of Home Apartment ground level Home Exterior Layout Entry steps none Home Interior Layout Lives on main level with bedroom/bathroom Bathroom Shower/Tub Tub/shower unit Bathroom Toilet Standard Bathroom Equipment Shower stool;Grab bars in shower/bath;Grab bars outside of shower/bath Bathroom Accessibility Other (Comment) (Small bathroom) Home Equipment Walker 4 wheeled;Cane single point Prior Function Level of [place] Modified independent with functional mobility;Modified independent wi [...] (sitting in recliner w/ call light and CUSTOMER SERVICE ASSOCIATE present) Restraints Initially in Place No Precautions [...] Eval/Reassessment Date 01/16/15 Assistance Required 1 person Middleware Developer Needed No Precautions Other Precautions Fall Risk [...] support. Patient in the recli ner w/ CUSTOMER SERVICE ASSOCIATE present at end of session, no new [...] (sitting in recliner w/ call light and CUSTOMER SERVICE ASSOCIATE present) Restraints Initially in Place No Plan [...] of Service: 01/16/15 1045 Status: Signed Manager Financial: Nupur Tadeo MD (Physician) [facility] Service: Infectious Disease Progress Note [...] Had initially presented to [facility] in [place] with similar complaints. Was found to have an elevated troponin . She was mainly admitted as a non-STEMI. Found to have a leukocytosis. Since patient is imm unocompromised, she was started empirically on IV ceftriaxone. Chest x-ray showed no infiltrate. Patient denies any recent fevers or chills. She went to [facility] mainly becau se of syncope. Prior [...] Author: PHUONG Sandhu Service: (none) Author Type: Photography Colorist Filed: 01/16/15 1042 Date of Service: 01/16/15 1030 Status: Signed Manager Financial: PHUONG Sandhu (Photography Colorist) 01/16/15 1000 Discharge Planning Evaluation Admitting Diagnosis Near syncope, elevated tropinin, non-stemi, CKD Anticipated Disposition Facility Type nursing home facility CAMP MAINTENANCE SUPERVISOR met with Pt and discussed discharge planning, states she has concerns returning home at this time, as Pt resides alone. CAMP MAINTENANCE SUPERVISOR discussed rehab options, SNF vs Home Health vs Outpatient PT. Pt states her sister (Annie Tipton [phone] cell) assists with IADLs as Pt does not polo ojeda. Pt states she resides alone and has been doing ADLs on her own. Pt states she uses a 4WW with seat at home, then uses a cane when out of the home, stated, "I am a little vain" abou t using the 4WW in public. Pt is interested in [facility] [place], due to close proximity to her home. CAMP MAINTENANCE SUPERVISOR faxe d SNF referral. Pt is [...] need SNF Anticipated DCP: Pending placement at [facility] [place] LUIS FOUNTAIN, Churn Operator [phone] cell Luisito Mejía - 01/16/2015 9:12 AM PDTFormatting of this note might be different from the or iginal. Progress Notes by Luisito Thomas MD at 01/16/15911 Author: Luisito Thomas MD Service: Nephrology Author Type: Physician Filed: 01/20/15 1907 Date of Service: 01/16/15911 Status: Signed Manager Financial: Luisito Thomas MD (Physician) [facility] Service: NEPHROLOGY PROGRESS Note Cole Ernst 69 y.o. [id number] [id number] female [facility] Day: LOS: 2 days The patient is a 69 y.o. 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 High CIWA this shift =4. Patient c/o generalized pain, treated with PRN [place] per orders. Patient observed to be sle eping, following PRN medication and repositioning. Patient continues to be NSR-ST on tele. Vitals stable. Will continue to monitor patient. ose Maria Black MD - 01/15/2015 3:19 PM PDTFormatting of this note might be different from armando tellez original. Progress Notes by Jose Maria Espinal MD at 01/15/15 3286 Author: Jose Maria Espinal MD Service: Hospitalist Author Type: Physician Filed: 01/16/15 0925 Date of Service: 01/15/151518 Status: Signed Manager Financial: Jose Maria Espinal MD (Physician) Related Notes: Original Note by Jose Maria Espinal MD (Physician) filed at 01/15/151939 [facility] Service: Hospitalist Progress [...] who called EMS. Patient was taken to [facility] in [place]. Susie ent was noted to have a [...] Patient had borderline blood pressure. While at [facility] with systolic in the low 90s. Heart [...] CT done several days ago while in [place]. She also stat es that her vomiting and diarrhea have significantly improved. She denies any fevers, hemat emesis, melena, bright red blood per rectum, hematuria, dysuria, she denies any leg pain or swelling. No palpitations. She states she does have a history of "kidney disease" and was told that it was secondary to cyclosporine. However, she is not seen kidney specialist [facility] her liver transplant.".....per admitting [...] contrast. Prior study for comparison: None FINDINGS: Manuscripts Archivist 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 deg enerative changes of [...] LA/Ao: 1.57 D-E Excursion: 2.11 cm E-F [place]: 0.09 m/s EPSS: 0.48 cm HR: 77.41 [...] TV A Billy: 0.66 m/s TV Dec [place]: 4.36 m/s2 TV Dec Time: 184.41 ms TV E Billy: 0.80 m/s TV E/A Rat io: 1.21 Plumbing Mechanic: NEDRA Authenticated by: Gil Coronel MD [...] Elevated troponins, question underlying non ST elevation WY. Continue current medical th erapy. I appreciate [...] 1438 Date of Service: 01/15/151429 Status: Signed Manager Financial: Ronda Michaels RD (Registered Dietitian) 01/15/15 8015 Subjective Timepoint Admit Pt c/o In to [...] Estimated Energy Needs Total Energy Estimated Needs 1723-7989 kcal Method for Estimating Needs 25-30 kcal/kg [...] of Service: 01/15/15 1043 Status: Signed Manager Financial: Luisito Thomas MD (Physician) [facility] Service: NEPHROLOGY PROGRESS Note Cole Ernst 69 y.o. [id number] 4445/[id number] female [facility] Day: LOS: 1 day The patient is a 69 y.o. 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 azaTHIOprine 50 mg Oral Daily [...] sodium chloride (IV) 150 mL/hr at 01/14/15 1912 PRN Medications acetaminophen OR acetaminophen, diazepam, diazepam [...] by MUSE READ ONLY, -COMPUTER (500), editor index Shala Gramajo (25) on 01/14/2015 11:17 :50 [...] K 4.4 11/15/2014 S/P LIVER TXP AT [place] IN 1991 IMMUNOSUPPRESSION ON CYCLOSPORIN 75 MG BID 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 [...] Date of Service: 01/14/152226 Status: Signed Manager Financial: Jazz Rahman RPH (Pharmacist) Clinical Pharmacy Note - Renal Dose Adjustment Cole Ernst 69 y.o. female Ht Readings from Last 1 Encounters: 01/14/15 1.6 m (5' 3") Wt Readings from Last 1 Encounters: 01/14/15 89.6 kg (197 lb 8.5 oz) CREATININE Date Value Ref Range Status 01/14/2015 2.4* 0.50 - 1.00 mg/dL Final Comment: Testing performed at [facility];[address] [place] [address];[place] [address] CREATININE: 2.4 mg/dL ABNORMAL (01/14/15 1548) Estimated [...] PHUONG Crump LICSW Service: (none) Author Type: Churn Operator Filed: 01/14/151734 Date of Service: 01/14/151733 Status: Signed Manager Financial: PHUONG Crump LICSW (Churn Operator) 01/14/151727 Discharge Planning Evaluation Admitting Diagnosis Near syncope, elevated tropinin, non-stemi, CKD Readmission No Living Arrangements Alone Support Systems Family members;Friends/neighbors Type of Residence Private residence House type Apartment Bathrooms on 1st Floor 1-Full Independent with ADL's Yes Independent with Mobility No-comment Home Care Services No Mental Status Oriented Power of Correctional Cook No;Other (comment) Resources Transportation issues No Prescription Plan Yes Name of Pharmacy [facility] in [place], [place] Previous home health equipment Yes Anticipated Disposition Facility Type Home Met with patient and discussed discharge planning, Pt is a 69 y.o., female who reports skyleri mack alone. Patient reports her sister, Annie Tipton, will transport her home a t discharge. Patient's PCP is: KI DE JESUS (General) Patient's insurance:b [employer] Health Plan & Medicare Coverage concerns: Medication coverage/concerns: Doreen Bedside Delivery: [facility] resources utilized / needed: TBD Assistance in [...] preparation was | | | performed by [facility], [facility], [facility] | | | [place] [address] (Business Developer: Martin | | Tariq Galvan M.D.; NINA#: [id number]). Diagnostician: Martin Galvan | | | Pathologist [...] | performed at [facility], [address] | | LAB | | | | [address], | | | | | | [place] [address] | | | | + + + [...] | performed at [facility], [address] | | LAB | | | | [address], | | | | | | [place] [address] | | | | + + + [...] | | | | | [place] [address] | | | | + + + + + + | K | 3.4 (L)Comment: Testing | 3.5 - 4.9 | EXTERNAL | | | | performed at [facility], [address] | mmol/L | LAB | | | | [address], | | | | | | [place] [address] | | | | + + + + + + | Cl | 101Comment: Testing | 99 - 109 mmol/L | EXTERNAL | | | | performed at [facility], [address] | | LAB | | | | [address], | | | | | | [place] [address] | | | | + + + + + + | CO2 | 28Comment: Testing | 23 - 32 mmol/L | EXTERNAL | | | | performed at [facility], [address] | | LAB | | | | [address], | | | | | | [place] [address] | | | | + + + + + + | Anion Gap | 10Comment: Testing | 5 - 20 mmol/L | EXTERNAL | | | | performed at [facility], [address] | | LAB | | | | [address], | | | | | | [place] [address] | | | | + + + + + + | Glucose, | 107 (H)Comment: Testing | 65 - 99 mg/dL | EXTERNAL | | | Fasting | performed at [facility], [address] | | LAB | | | | [address], | | | | | | [place] [address] | | | | + + + + + + | BUN | 8Comment: Testing | 8 - 25 mg/dL | EXTERNAL | | | | performed at [facility], [address] | | LAB | | | | [address], | | | | | | [place] [address] | | | | + + + + + + | Creatinine | 0.96Comment: Testing | 0.50 - 1.00 | EXTERNAL | | | | performed at [facility], [address] | mg/dL | LAB | | | | [address], | | | | | | [place] [address] | | | | + + + + + + | BUN/Creatin | 8Comment: Testing | | EXTERNAL | | | ine Ratio | performed at [facility], [address] | | LAB | | | | [address], | | | | | | [place] [address] | | | | + + + + + + | Calcium | 8.6Comment: Testing | 8.5 - 10.5 | EXTERNAL | | | | performed at [facility], [address] | mg/dL | LAB | | | | [address], | | | | | | [place] [address] | | | | + + + [...] | | at [facility], [address] | | | | | | [address], | | | | | | [place] [address] | | | | + + + [...] + + + | COLE ERNST 1945 [place] MYOCARDIAL PERFUSION SPECT - STRESS | | [...] - 01/05/2019 4:32 AM PDT COLE Cor[place]an [id number] MYOCARDIAL | | PERFUSION SPECT - STRESS [...] | performed at [facility], [address] | K/uL | LAB | | | | [address], | | | | | | [place] [address] | | | | + + + + + + | RED CELL | 3.41 (L)Comment: Testing | 3.70 - 5.10 | EXTERNAL | | | COUNT | performed at [facility], [address] | M/uL | LAB | | | | [address], | | | | | | [place] [address] | | | | + + + + + + | Hgb | 11.9Comment: Testing | 11.3 - 15.5 | EXTERNAL | | | | performed at [facility], [address] | g/dL | LAB | | | | [address], | | | | | | [place] [address] | | | | + + + + + + | Hematocrit, | 35.7Comment: Testing | 34.0 - 46.0 % | EXTERNAL | | | POC | performed at [facility], [address] | | LAB | | | | [employer] [address], | | | | | | [place] [address] | | | | + + + + + + | MCV | 104.6 (H)Comment: | 80.0 - 100.0 fl | EXTERNAL | | | | Testing performed at | | LAB | | | | [facility], [address] [facility] | | | | | | [place] | | | | | | [address] | | | | + + + + + + | MCH | 34.9 (H)Comment: Testing | 27.0 - 34.0 pg | EXTERNAL | | | | performed at [facility], [address] | | LAB | | | | [address], | | | | | | [place] [address] | | | | + + + + + + | MCHC | 33.3Comment: Testing | 32.0 - 35.5 | EXTERNAL | | | | performed at [facility], [address] | g/dL | LAB | | | | [address], | | | | | | [place] [address] | | | | + + + + + + | RDW-CV | 50.8Comment: Testing | 37 - 53 fl | EXTERNAL | | | | performed at [facility], [address] | | LAB | | | | [address], | | | | | | [place] [address] | | | | + + + [...] | | | | | [place] [address] | | | | + + + + + + | MPV | 12.6Comment: Testing | fl | EXTERNAL | | | | performed at [facility], [address] | | LAB | | | | [address], | | | | | | [place] [address] | | | | + + + + + + | Differentia | AUTOMATEDComment: | | EXTERNAL | | | l Type | Testing performed at | | LAB | | | | [facility], [address] | | | | | | [place] | | | | | | [address] | | | | + + + + + + | % Segmented | 40.31Comment: Testing | % | EXTERNAL | | | | performed at [facility], [address] | | LAB | | | Neutrophils | [address], | | | | | | [place] [address] | | | | + + + + + + | % | 39.78Comment: Testing | % | EXTERNAL | | | Lymphocytes | performed at [facility], [address] | | LAB | | | | [address], | | | | | | [place] [address] | | | | + + + + + + | % Monocytes | 12.51Comment: Testing | % | EXTERNAL | | | | performed at [facility], [address] | | LAB | | | | [address], | | | | | | [place] [address] | | | | + + + + + + | % | 6.45Comment: Testing | % | EXTERNAL | | | Eosinophils | performed at [facility], [address] | | LAB | | | | [address], | | | | | | [place] [address] | | | | + + + + + + | % Basophils | 0.95Comment: Testing | % | EXTERNAL | | | | performed at [facility], [address] | | LAB | | | | [address], | | | | | | [place] [address] | | | | + + + + + + | Absolute | 3.26Comment: Testing | 1.90 - 7.40 | EXTERNAL | | | Segmented | performed at [facility], [address] | K/uL | LAB | | | Neutrophils | [address], | | | | | | [place] [address] | | | | + + + + + + | Absolute | 3.21Comment: Testing | 1.00 - 3.90 | EXTERNAL | | | Lymphocytes | performed at [facility], [address] | K/uL | LAB | | | | [address], | | | | | | [place] [address] | | | | + + + + + + | Absolute | 1.01 (H)Comment: Testing | 0.00 - 0.80 | EXTERNAL | | | Monocytes | performed at [facility], [address] | K/uL | LAB | | | | [address], | | | | | | [place] [address] | | | | + + + + + + | Absolute | 0.52 (H)Comment: Testing | 0.00 - 0.50 | EXTERNAL | | | Eosinophils | performed at [facility], [address] | K/uL | LAB | | | | [address], | | | | | | [place] [address] | | | | + + + + + + | Absolute | 0.08Comment: Testing | 0.00 - 0.10 | EXTERNAL | | | Basophils | performed at [facility], [address] | K/uL | LAB | | | | [address], | | | | | | [place] [address] | | | | + + + + + + | RBC | RBC AND PLT MORPHOLOGY | | EXTERNAL | | | Morphology | APPEAR NORMALComment: | | LAB | | | | Testing performed at | | | | | | [facility], [address] [facility] | | | | | | [place] | | | | | | [address] | | | | + + + [...] | performed at [facility], [address] | | LAB | | | | [address], | | | | | | [place] [address] | | | | + + + [...] | | | | | [place] [address] | | | | + + + [...] | | | | | [place] [address] | | | | + + + + + + | K | 3.8Comment: Testing | 3.5 - 4.9 | EXTERNAL | | | | performed at [facility], [address] | mmol/L | LAB | | | | [address], | | | | | | [place] [address] | | | | + + + + + + | Cl | 101Comment: Testing | 99 - 109 mmol/L | EXTERNAL | | | | performed at [facility], [address] | | LAB | | | | [address], | | | | | | [place] [address] | | | | + + + + + + | CO2 | 27Comment: Testing | 23 - 32 mmol/L | EXTERNAL | | | | performed at [facility], [address] | | LAB | | | [address], | | | | | | [place] [address] | | | | + + + + + + | Anion Gap | 12Comment: Testing | 5 - 20 mmol/L | EXTERNAL | | | | performed at [facility], [address] | | LAB | | | | [address], | | | | | | [place] [address] | | | | + + + + + + | Glucose, | 118 (H)Comment: Testing | 65 - 99 mg/dL | EXTERNAL | | | Fasting | performed at [facility], [address] | | LAB | | | | [address], | | | | | | [place] [address] | | | | + + + + + + | BUN | 7 (L)Comment: Testing | 8 - 25 mg/dL | EXTERNAL | | | | performed at [facility], [address] | | LAB | | | | [address], | | | | | | [place] [address] | | | | + + + + + + | Creatinine | 0.79Comment: Testing | 0.50 - 1.00 | EXTERNAL | | | | performed at [facility], [address] | mg/dL | LAB | | | | [address], | | | | | | [place] [address] | | | | + + + + + + | BUN/Creatin | 9Comment: Testing | | EXTERNAL | | | ine Ratio | performed at [facility], [address] | | LAB | | | | [address], | | | | | | [place] [address] | | | | + + + + + + | Calcium | 7.5 (L)Comment: Testing | 8.5 - 10.5 | EXTERNAL | | | | performed at [facility], [address] | mg/dL | LAB | | | | [address], | | | | | | [place] [address] | | | | + + + + + + | Protein, | 7.2Comment: Testing | 6.3 - 8.2 g/dL | EXTERNAL | | | Total | performed at [facility], [address] | | LAB | | | | [address], | | | | | | [place] [address] | | | | + + + + + + | Albumin | 3.1 (L)Comment: Testing | 3.3 - 4.8 g/dL | EXTERNAL | | | | performed at [facility], [address] | | LAB | | | | [address], | | | | | | [place] [address] | | | | + + + + + + | Globulin | 4.1Comment: Testing | 1.3 - 4.9 g/dL | EXTERNAL | | | | performed at [facility], [address] | | LAB | | | | [address], | | | | | | [place] [address] | | | | + + + + + + | A/G Ratio | 0.8 (L)Comment: Testing | 1.0 - 2.4 | EXTERNAL | | | | performed at [facility], [address] | | LAB | | | | [address], | | | | | | [place] [address] | | | | + + + + + + | Bilirubin | 0.5Comment: Testing | 0.1 - 1.5 mg/dL | EXTERNAL | | | Total | performed at [facility], [address] | | LAB | | | | [address], | | | | | | [place] [address] | | | | + + + + + + | ALP, | 76Comment: Testing | 35 - 115 U/L | EXTERNAL | | | External | performed at [facility], [address] | | LAB | | | | [address], | | | | | | [place] [address] | | | | + + + + + + | AST | 43Comment: Testing | 10 - 45 U/L | EXTERNAL | | | | performed at [facility], [address] | | LAB | | | | [address], | | | | | | [place] [address] | | | | + + + + + + | ALT | 25Comment: Testing | 10 - 65 U/L | EXTERNAL | | | | performed at [facility], [address] | | LAB | | | | [address], | | | | | | [place] [address] | | | | + + + [...] | | | | | [place] [address] | | | | + + + [...] | LAB | | | | [address];[place] | | | | | | [address] | | | | + + + [...] | performed at [facility] | | LAB | | | | [address] [facility];[place], [place] | | | | | | [address] | | | | + + + [...] | LAB | | | | [address];[place] | | | | | | [address] | | | | + + + [...] | LAB | | | | [address];[place], [place] | | | | | | [address] | | | | + + + [...] [place] | | | | | | [address] | | | | + + + [...] | LAB | | | | [facility];[place], [place] | | | | | | [address] | | | | + + + [...] | | | | | [place] [address] | | | | + + + + + + | RED CELL | 3.40 (L)Comment: Testing | 3.70 - 5.10 | EXTERNAL | | | COUNT | performed at [facility], [address] | [address]/uL | LAB | | | | [address], | | | | | | [place] [address] | | | | + + + + + + | Hgb | 12.0Comment: Testing | 11.3 - 15.5 | EXTERNAL | | | | performed at [facility], [address] | g/dL | LAB | | | | [address], | | | | | | [place] [address] | | | | + + + + + + | Hematocrit, | 35.8Comment: Testing | 34.0 - 46.0 % | EXTERNAL | | | POC | performed at [facility], [address] | | LAB | | | | [address], | | | | | | [place] [address] | | | | + + + + + + | MCV | 105.3 (H)Comment: | 80.0 - 100.0 fl | EXTERNAL | | | | Testing performed at | | LAB | | | | [facility], [address] [facility] | | | | | | [place] | | | | | | [address] | | | | + + + + + + | MCH | 35.3 (H)Comment: Testing | 27.0 - 34.0 pg | EXTERNAL | | | | performed at [facility], [address] | | LAB | | | | [address], | | | | | | [place] [address] | | | | + + + + + + | MCHC | 33.6Comment: Testing | 32.0 - 35.5 | EXTERNAL | | | | performed at [facility], [address] | g/dL | LAB | | | | [address], | | | | | | [place] [address] | | | | + + + + + + | RDW-CV | 50.8Comment: Testing | 37 - 53 fl | EXTERNAL | | | | performed at [facility], [address] | | LAB | | | | [address], | | | | | | [place] [address] | | | | + + + + + + | Platelet | 149 (L)Comment: Testing | 150 - 400 K/uL | EXTERNAL | | | Count | performed at [facility], [address] | | LAB | | | Plasma | [address], | | | | | | [place] [address] | | | | + + + + + + | MPV | 13.0Comment: Testing | fl | EXTERNAL | | | | performed at [facility], [address] | | LAB | | | | [address], | | | | | | [place] [address] | | | | + + + + + + | Differentia | AUTOMATEDComment: | | EXTERNAL | | | l Type | Testing performed at | | LAB | | | | [facility], [address] | | | | | | [place] | | | | | | [address] | | | | + + + + + + | % Segmented | 52.08Comment: Testing | % | EXTERNAL | | | | performed at [facility], [address] | | LAB | | | Neutrophils | [address], | | | | | | [place] [address] | | | | + + + + + + | % | 32.37Comment: Testing | % | EXTERNAL | | | Lymphocytes | performed at [facility], [address] | | LAB | | | | [address], | | | | | | [place] [address] | | | | + + + + + + | % Monocytes | 10.07Comment: Testing | % | EXTERNAL | | | | performed at [facility], [address] | | LAB | | | | [address], | | | | | | [place] [address] | | | | + + + + + + | % | 4.41Comment: Testing | % | EXTERNAL | | | Eosinophils | performed at [facility], [address] | | LAB | | | | [address], | | | | | | [place] [address] | | | | + + + + + + | % Basophils | 1.07Comment: Testing | % | EXTERNAL | | | | performed at [facility], [address] | | LAB | | | | [address], | | | | | | [place] [address] | | | | + + + + + + | Absolute | 5.59Comment: Testing | 1.90 - 7.40 | EXTERNAL | | | Segmented | performed at [facility], [address] | K/uL | LAB | | | Neutrophils | [address], | | | | | | [place] [address] | | | | + + + + + + | Absolute | 3.48Comment: Testing | 1.00 - 3.90 | EXTERNAL | | | Lymphocytes | performed at [facility], [address] | K/uL | LAB | | | | [address], | | | | | | [place] [address] | | | | + + + + + + | Absolute | 1.08 (H)Comment: Testing | 0.00 - 0.80 | EXTERNAL | | | Monocytes | performed at [facility], [address] | [address]L | LAB | | | | [address], | | | | | | [place] [address] | | | | + + + + + + | Absolute | 0.47Comment: Testing | 0.00 - 0.50 | EXTERNAL | | | Eosinophils | performed at [facility], [address] | K/uL | LAB | | | | [address], | | | | | | [place] [address] | | | | + + + + + + | Absolute | 0.12 (H)Comment: Testing | 0.00 - 0.10 | EXTERNAL | | | Basophils | performed at [facility], [address] | K/uL | LAB | | | | [address], | | | | | | [place] [address] | | | | + + + + + + | RBC | NORMAL RBC MORPHComment: | | EXTERNAL | | | Morphology | Testing performed at | | LAB | | | | [facility], [address] [facility] | | | | | | [place] | | | | | | [address] | | | | + + + [...] | | | | | [place] [address] | | | | + + + + + + | K | 3.2 (L)Comment: Testing | 3.5 - 4.9 | EXTERNAL | | | | performed at [facility], [address] | mmol/L | LAB | | | | [address], | | | | | | [place] [address] | | | | + + + [...] | | | | | [place] [address] | | | | + + + + + + | Anion Gap | 13Comment: Testing | 5 - 20 mmol/L | EXTERNAL | | | | performed at [facility], [address] | | LAB | | | | [address], | | | | | | [place] [address] | | | | + + + + + + | Glucose, | 114 (H)Comment: Testing | 65 - 99 mg/dL | EXTERNAL | | | Fasting | performed at [facility], [address] | | LAB | | | | [address], | | | | | | [place] [address] | | | | + + + + + + | BUN | 8Comment: Testing | 8 - 25 mg/dL | EXTERNAL | | | | performed at [facility], [address] | | LAB | | | | [address], | | | | | | [place] [address] | | | | + + + + + + | Creatinine | 0.94Comment: Testing | 0.50 - 1.00 | EXTERNAL | | | | performed at [facility], [address] | mg/dL | LAB | | | | [address], | | | | | | [place] [address] | | | | + + + + + + | BUN/Creatin | 9Comment: Testing | | EXTERNAL | | | ine Ratio | performed at [facility], [address] | | LAB | | | | [address], | | | | | | [place] [address] | | | | + + + + + + | Calcium | 7.8 (L)Comment: Testing | 8.5 - 10.5 | EXTERNAL | | | | performed at [facility], [address] | mg/dL | LAB | | | | [address], | | | | | | [place] [address] | | | | + + + + + + | Protein, | 7.8Comment: Testing | 6.3 - 8.2 g/dL | EXTERNAL | | | Total | performed at [facility], [address] | | LAB | | | | [address], | | | | | | [place] [address] | | | | + + + + + + | Albumin | 3.3Comment: Testing | 3.3 - 4.8 g/dL | EXTERNAL | | | | performed at [facility], [address] | | LAB | | | [address], | | | | | | [place] [address] | | | | + + + + + + | Globulin | 4.5Comment: Testing | 1.3 - 4.9 g/dL | EXTERNAL | | | | performed at [facility], [address] | | LAB | | | | [address], | | | | | | [place] [address] | | | | + + + + + + | A/G Ratio | 0.7 (L)Comment: Testing | 1.0 - 2.4 | EXTERNAL | | | | performed at [facility], [address] | | LAB | | | | [address], | | | | | | [place] [address] | | | | + + + + + + | Bilirubin | 0.4Comment: Testing | 0.1 - 1.5 mg/dL | EXTERNAL | | | Total | performed at [facility], [address] | | LAB | | | | [address], | | | | | | [place] [address] | | | | + + + + + + | ALP, | 83Comment: Testing | 35 - 115 U/L | EXTERNAL | | | External | performed at [facility], [address] | | LAB | | | | [address], | | | | | | [place] [address] | | | | + + + + + + | AST | 34Comment: Testing | 10 - 45 U/L | EXTERNAL | | | | performed at [facility], [address] | | LAB | | | | [address], | | | | | | [place] [address] | | | | + + + + + + | ALT | 24Comment: Testing | 10 - 65 U/L | EXTERNAL | | | | performed at [facility], [address] | | LAB | | | | [facility], | | | | | | [place] [address] | | | | + + + [...] | | | | | [facility], | | | | | | [place] [address] | | | | + + + [...] | performed at [facility] | | | | | | [facility];[place], [place] | | | | | | [address] | | | | + + + [...] | | | | | | [address];[place], [place] | | | | | | [address] | | | | + + + [...] | LAB | | | | [address];[place], [place] | | | | | | [address] | | | | + + + [...] | LAB | | | | [address];[place], [place] | | | | | | [address] [...] Testing performed at [facility], [address] | | | [place] [address] | | + + + + +---------+ [...] | | | [facility], [address] [place] [address] | | + + + + +---------+ [...] Testing performed at [facility], [address] [facility] | | | [place] [address] | | + + + + +---------+ [...] Testing performed at [facility], [address] | | | [place] [address] | | + + + + +---------+ [...] at | | | | | | [facility], [address] | | | | | | [place] | | | | | | [address] | | | | + + + [...] [place] | | | | | | [place] [address] | | | | + + + [...] | | LAB | | | | [facility];[place], [place] | | | | | | [address] | | | | + + + + + + | CMV DNA | NOT DETECTEDComment: | | EXTERNAL | | | QUANTITATIV | Unit: IU/MLTesting | | LAB | | | E INTERP | performed at [facility], [address] | | | | | | [place] | | | | | | [place] [address] | | | | + + + + + + | CMV DNA, | NOT DETECTEDComment: | | EXTERNAL | | | Qual PCR | Unit: COPIES/MLTesting | | LAB | | | | performed at [facility], [address] | | | | | | [place] | | | | | | [place] [address] | | | | + + + [...] [place] | | | | | | [address] | | | | + + + [...] | performed at [facility], [address] | K/uL | LAB | | | | [address], | | | | | | [place] [address] | | | | + + + + + + | RED CELL | 3.28 (L)Comment: Testing | 3.70 - 5.10 | EXTERNAL | | | COUNT | performed at [facility], [address] | M/uL | LAB | | | | [address], | | | | | | [place] [address] | | | | + + + + + + | Hgb | 11.6Comment: Testing | 11.3 - 15.5 | EXTERNAL | | | | performed at [facility], [address] | g/dL | LAB | | | | [address], | | | | | | [place] [address] | | | | + + + + + + | Hematocrit, | 34.5Comment: Testing | 34.0 - 46.0 % | EXTERNAL | | | POC | performed at [facility], [address] | | LAB | | | | [address], | | | | | | [place] [address] | | | | + + + + + + | MCV | 105.1 (H)Comment: | 80.0 - 100.0 fl | EXTERNAL | | | | Testing performed at | | LAB | | | | [facility], [address] | | | | | | [place] | | | | | | [address] | | | | + + + + + + | MCH | 35.3 (H)Comment: Testing | 27.0 - 34.0 pg | EXTERNAL | | | | performed at [facility], [address] | | LAB | | | | [address], | | | | | | [place] [address] | | | | + + + + + + | MCHC | 33.5Comment: Testing | 32.0 - 35.5 | EXTERNAL | | | | performed at [facility], [address] | g/dL | LAB | | | | [address], | | | | | | [place] [address] | | | | + + + + + + | RDW-CV | 50.8Comment: Testing | 37 - 53 fl | EXTERNAL | | | | performed at [facility], [address] | | LAB | | | | [address], | | | | | | [place] [address] | | | | + + + + + + | Platelet | 144 (L)Comment: Testing | 150 - 400 K/uL | EXTERNAL | | | Count | performed at [facility], [address] | | LAB | | | Plasma | [address], | | | | | | [place] [address] | | | | + + + + + + | MPV | 13.0Comment: Testing | fl | EXTERNAL | | | | performed at [facility], [address] | | LAB | | | | [address], | | | | | | [place] [address] | | | | + + + + + + | Differentia | AUTOMATEDComment: | | EXTERNAL | | | l Type | Testing performed at | | LAB | | | | [facility], [address] | | | | | | [place] | | | | | | [address] | | | | + + + + + + | % Segmented | 37.99Comment: Testing | % | EXTERNAL | | | | performed at [facility], [address] | | LAB | | | Neutrophils | [address], | | | | | | [place] [id number] | | | | + + + + + + | % | 43.49Comment: Testing | % | EXTERNAL | | | Lymphocytes | performed at [facility], [address] | | LAB | | | | [address], | | | | | | [place] [address] | | | | + + + + + + | % Monocytes | 11.24Comment: Testing | % | EXTERNAL | | | | performed at [facility], [address] | | LAB | | | | [address], | | | | | | [place] [address] | | | | + + + + + + | % | 5.97Comment: Testing | % | EXTERNAL | | | Eosinophils | performed at [facility], [address] | | LAB | | | | [address], | | | | | | [place] [address] | | | | + + + + + + | % Basophils | 1.31Comment: Testing | % | EXTERNAL | | | | performed at [facility], [address] | | LAB | | | | [address], | | | | | | [place] [address] | | | | + + + + + + | Absolute | 4.01Comment: Testing | 1.90 - 7.40 | EXTERNAL | | | Segmented | performed at [facility], [address] | [address] | LAB | | | Neutrophils | [address], | | | | | | [place] [address] | | | | + + + + + + | Absolute | 4.59 (H)Comment: Testing | 1.00 - 3.90 | EXTERNAL | | | Lymphocytes | performed at [facility], [address] | LAB | | | | [address], | | | | | | [place] [address] | | | | + + + + + + | Absolute | 1.19 (H)Comment: Testing | 0.00 - 0.80 | EXTERNAL | | | Monocytes | performed at [facility], [address] | LAB | | | | [address], | | | | | | [place] [address] | | | | + + + + + + | Absolute | 0.63 (H)Comment: Testing | 0.00 - 0.50 | EXTERNAL | | | Eosinophils | performed at [facility], [address] | LAB | | | | [address], | | | | | | [place] [address] | | | | + + + + + + | Absolute | 0.14 (H)Comment: Testing | 0.00 - 0.10 | EXTERNAL | | | Basophils | performed at [facility], [address] | [address] | LAB | | | | [address], | | | | | | [place] [address] | | | | + + + + + + | RBC | NORMAL RBC MORPHComment: | | EXTERNAL | | | Morphology | Testing performed at | | LAB | | | | [facility], [address] | | | | | | [place] | | | | | | [address] | | | | + + + + + + | Differentia | 2+ GIANT PLTComment: | | EXTERNAL | | | l Comments | Testing performed at | | LAB | | | | [facility], [address] | | | | | | [place] | | | | | | [address] | | | | + + + [...] [place] | | | | | | [address] | | | | + + + [...] | performed at [facility], [address] | | LAB | | | | [address], | | | | | | [place] [address] | | | | + + + [...] | | | | | [place] [address] | | | | + + + [...] | performed at [facility], [address] | | LAB | | | | [address], | | | | | | [place] [address] | | | | + + + [...] | | | | | [place] [address] | | | | + + + + + + | K | 3.0 (L)Comment: Testing | 3.5 - 4.9 | EXTERNAL | | | | performed at [facility], [address] | mmol/L | LAB | | | | [address], | | | | | | [place] [address] | | | | + + + + + + | Cl | 104Comment: Testing | 99 - 109 mmol/L | EXTERNAL | | | | performed at [facility], [address] | | LAB | | | | [address], | | | | | | [place] [address] | | | | + + + + + + | CO2 | 22 (L)Comment: Testing | 23 - 32 mmol/L | EXTERNAL | | | | performed at [facility], [address] | | LAB | | | | [address], | | | | | | [place] [place] [address] | | | | + + + + + + | Anion Gap | 15Comment: Testing | 5 - 20 mmol/L | EXTERNAL | | | | performed at [facility], [address] | | LAB | | | | [address], | | | | | | [place] [address] | | | | + + + + + + | Glucose, | 82Comment: Testing | 65 - 99 mg/dL | EXTERNAL | | | Fasting | performed at [facility], [address] | | LAB | | | | [address], | | | | | | [place] [address] | | | | + + + + + + | BUN | 13Comment: Testing | 8 - 25 mg/dL | EXTERNAL | | | | performed at [facility], [address] | | LAB | | | | [address], | | | | | | [place] [address] | | | | + + + + + + | Creatinine | 1.01 (H)Comment: Testing | 0.50 - 1.00 | EXTERNAL | | | | performed at [facility], [address] | mg/dL | LAB | | | | [address], | | | | | | [place] [address] | | | | + + + + + + | BUN/Creatin | 13Comment: Testing | | EXTERNAL | | | ine Ratio | performed at [facility], [address] | | LAB | | | | [address], | | | | | | [place] [address] | | | | + + + + + + | Calcium | 7.7 (L)Comment: Testing | 8.5 - 10.5 | EXTERNAL | | | | performed at [facility], [address] | mg/dL | LAB | | | | [address], | | | | | | [place] [address] | | | | + + + + + + | Protein, | 7.1Comment: Testing | 6.3 - 8.2 g/dL | EXTERNAL | | | Total | performed at [facility], [address] | | LAB | | | | [address], | | | | | | [place] [address] | | | | + + + + + + | Albumin | 3.2 (L)Comment: Testing | 3.3 - 4.8 g/dL | EXTERNAL | | | | performed at [facility], [address] | | LAB | | | | [address], | | | | | | [place] [address] | | | | + + + [...] | | | | | [place] [address] | | | | + + + + + + | Bilirubin | 0.4Comment: Testing | 0.1 - 1.5 mg/dL | EXTERNAL | | | Total | performed at [facility], [address] | | LAB | | | | [address], | | | | | | [place] [address] | | | | + + + + + + | ALP, | 76Comment: Testing | 35 - 115 U/L | EXTERNAL | | | External | performed at [facility], [address] | | LAB | | | | [address], | | | | | | [place] [address] | | | | + + + + + + | AST | 26Comment: Testing | 10 - 45 U/L | EXTERNAL | | | | performed at [facility], [address] | | LAB | | | | [address], | | | | | | [place] [address] | | | | + + + + + + | ALT | 19Comment: Testing | 10 - 65 U/L | EXTERNAL | | | | performed at [facility], [address] | | LAB | | | | [address], | | | | | | [place] [address] | | | | + + + [...] Jose, | | | | | | [place] [address] | | | | + + + [...] | performed at [facility], [address] | | | | | | [facility], | | | | | | [place] [address] | | | | + + + [...] | performed at [facility], [address] | | LAB | | | Random | [address], | | | | | | [place] [address] | | | | + + + [...] | at [facility], [address] [place] [address] | | + + + + +---------+ [...] LA/Ao: 1.57 D-E Excursion: 2.11 cm E-F [place]: 0.09 m/s | | | EPSS: 0.48 [...] TV A Billy: 0.66 m/s TV Dec [place]: 4.36 m/s2 TV Dec | | | Time: 184.41 ms TV E Billy: 0.80 m/s TV E/A Ratio: 1.21 | | | Plumbing Mechanic: NEDRA Authenticated by: Gil Coronel MD [...] | Index (A-L): 40.51 ml/m2LAAs A2C: 24.56 gm2YFFXN A-L A2C: 76.32 mlLAESV MOD A2C: | | 73.52 mlLALs A2C: 6.71 cmLAAs A4C: 24.96 dw1GVYMA A-L A4C: 79.86 mlLAESV MOD A4C: | | 77.20 mlLALs A4C: 6.62 cmAo Diam: 2.73 cmAV Cusp: 2.27 cmLA Diam: 4.29 | | cmLA/Ao: 1.57D-E Excursion: 2.11 cmE-F [place]: 0.09 m/sEPSS: 0.48 cmHR: 77.41 | | BPMAV maxP.05 mmHgAV meanP.21 mmHgAV Vmax: 1.73 m/Sorin Vmean: 1.25 m/Sorin | | VTI: 34.68 cmAVA Vmax: 2.07 cm2AVA (VTI): 1.85 yq2FKZH Dopp: 2.60 l/hrgh7OMSN | | Dopp: 5.05 l/minHR: 78.81 BPMLVOT [...] | m/sTV A Billy: 0.66 m/sTV Dec [place]: 4.36 m/s2TV Dec Time: 184.41 msTV E Billy: 0.80 | | m/sTV E/A Ratio: 1.21 Plumbing Mechanic: GDAuthenticated by: Gil Coronel [facility] | | Date/Time: 01-15-2015 09:12:05 IMPRESSION: [...] | |D-E Excursion: 2.11 cm | |E-F [place]: 0.09 m/s | |EPSS: 0.48 cm | |HR: 77.41 BPM | |AV maxP.05 mmHg | |AV meanP.21 mmHg | |AV Vmax: 1.73 m/s | |AV Vmean: 1.25 m/s | |AV VTI: 34.68 cm | |BAYORN Vmax: 2.07 cm2 | |BAYRON (VTI): 1.85 [...] A Billy: 0.66 m/s | |TV Dec [place]: 4.36 m/s2 | |TV Dec Time: 184.41 ms | |TV E Billy: 0.80 m/s | |TV E/A Ratio: 1.21 | | | |Plumbing Mechanic: NEDRA | |Authenticated by: Gil Coronel [...] performed at [facility];[address] [facility];[place] [address] 027 NAP1 BI | | | 027 NAP1 BI PRESUMPTIVE NEGATIVE | | | Detection of 027 NAP1 BI strains of C. difficile is presumptive and | | | for epidemiological purposes and not intended to guide or monitor | | | treatment for C. difficile infections. Testing performed at [facility];[address] | | | [facility];[place] [address] | | + + + + +---------+ [...] | | | | | [place] [address] | | | | + + + + + + | Complement | 19.4Comment: Testing | 10 - 40 mg/dL | EXTERNAL | | | Comp 4 | performed at [facility], [address] | | LAB | | | | [address], | | | | | | [place] [address] | | | | + + + [...] | | | | | | ACUTE [place] Testing | | | | | | performed at [facility];[address] | | | | | | [address];[place], [place] | | | | | | [address] | | | | + + + [...] | | | | | Blvd;[place] [address] | | | | + + + + + + | RED CELL | 3.27 (L)Comment: Testing | 3.70 - 5.10 | EXTERNAL | | | COUNT | performed at [facility];[address] | M/uL | LAB | | | | [address];[place] | | | | | | [address] | | | | + + + + + + | Hgb | 11.2 (L)Comment: Testing | 11.3 - 15.5 | EXTERNAL | | | | performed at [facility];[address] | g/dL | LAB | | | | [address];[place] | | | | | | [address] | | | | + + + + + + | Hematocrit, | 34.4Comment: Testing | 34.0 - 46.0 % | EXTERNAL | | | POC | performed at [facility];[address] | | LAB | | | | [address];[place] | | | | | | [address] | | | | + + + + + + | MCV | 105.2 (H)Comment: | 80.0 - 100.0 fl | EXTERNAL | | | | Testing performed at | | LAB | | | | [facility];[address];[place] [address] | | | | + + + + + + | MCH | 34.2 (H)Comment: Testing | 27.0 - 34.0 pg | EXTERNAL | | | | performed at [facility];[address] | | LAB | | | | [address];[place] | | | | | | [address] | | | | + + + + + + | MCHC | 32.5Comment: Testing | 32.0 - 35.5 | EXTERNAL | | | | performed at [facility];[address] | g/dL | LAB | | | | [address];[place] | | | | | | [address] | | | | + + + + + + | RDW-CV | 50.3Comment: Testing | 37 - 53 fl | EXTERNAL | | | | performed at [facility];[address] | | LAB | | | | [address];[place] | | | | | | [address] | | | | + + + + + + | Platelet | 160Comment: Testing | 150 - 400 K/uL | EXTERNAL | | | Count | performed at [facility];[address] | | LAB | | | Plasma | [address];[place] | | | | | | [address] | | | | + + + + + + | MPV | 11.1Comment: Testing | fl | EXTERNAL | | | | performed at [facility];[address] | | LAB | | | | [address];[place] | | | | | | [address] | | | | + + + + + + | Differentia | AUTOMATEDComment: | | EXTERNAL | | | l Type | Testing performed at | | LAB | | | | [facility];[address];[place] [address] | | | | + + + + + + | % Segmented | 50.65Comment: Testing | % | EXTERNAL | | | | performed at [facility];[address] | | LAB | | | Neutrophils | [address];[place] | | | | | | [address] | | | | + + + + + + | % | 37.06Comment: Testing | % | EXTERNAL | | | Lymphocytes | performed at [facility];[address] | | LAB | | | | [address];[place] | | | | | | [address] | | | | + + + + + + | % Monocytes | 9.60Comment: Testing | % | EXTERNAL | | | | performed at [facility];[address] | | LAB | | | | [address];[place] | | | | | | [address] | | | | + + + + + + | % | 1.30Comment: Testing | % | EXTERNAL | | | Eosinophils | performed at [facility];[address] | | LAB | | | | [address];[place] | | | | | | [address] | | | | + + + [...] [place] | | | | | | [address] | | | | + + + + + + | Absolute | 4.86 (H)Comment: Testing | 1.00 - 3.90 | EXTERNAL | | | Lymphocytes | performed at [facility];[address] | K/uL | LAB | | | | [address];[place] | | | | | | [address] | | | | + + + + + + | Absolute | 1.26 (H)Comment: Testing | 0.00 - 0.80 | EXTERNAL | | | Monocytes | performed at [facility];[address] | K/uL | LAB | | | | [address];[place] | | | | | | [address] | | | | + + + + + + | Absolute | 0.17Comment: Testing | 0.00 - 0.50 | EXTERNAL | | | Eosinophils | performed at [facility];[address] | K/uL | LAB | | | | [address];[place] | | | | | | [address] | | | | + + + + + + | Absolute | 0.18 (H)Comment: Testing | 0.00 - 0.10 | EXTERNAL | | | Basophils | performed at [facility];[address] | K/uL | LAB | | | | [address];[place] | | | | | | [address] | | | | + + + [...] | | LAB | | | | [facility];[place], [place] | | | | | | [address] | | | | + + + [...] | | | | | | [address];[place], [place] | | | | | | [address] | | | | + + + [...] [place] | | | | | | [address] | | | | + + + + + + | K | 3.7Comment: SLT | 3.5 - 4.9 | EXTERNAL | | | | HEMOLYSISTesting | mmol/L | LAB | | | | performed at [facility];[address] | | | | | | [address];[place] | | | | | | [address] | | | | + + + + + + | Cl | 110 (H)Comment: Testing | 99 - 109 mmol/L | EXTERNAL | | | | performed at [facility];[address] | | LAB | | | | [address];[place] | | | | | | [address] | | | | + + + + + + | CO2 | 24Comment: Testing | 23 - 32 mmol/L | EXTERNAL | | | | performed at [facility];[address] | | LAB | | | | [address];[place] | | | | | | [address] | | | | + + + + + + | Anion Gap | 13Comment: Testing | 5 - 20 mmol/L | EXTERNAL | | | | performed at [facility];[address] | | LAB | | | | [address];[place] | | | | | | [address] | | | | + + + + + + | Glucose, | 109 (H)Comment: Testing | 65 - 99 mg/dL | EXTERNAL | | | Fasting | performed at [facility];[address] | | LAB | | | | [address];[place] | | | | | | [address] | | | | + + + + + + | BUN | 24Comment: Testing | 8 - 25 mg/dL | EXTERNAL | | | | performed at [facility];[address] | | LAB | | | | [address];[place] | | | | | | [address] | | | | + + + + + + | Creatinine | 1.7 (H)Comment: Testing | 0.50 - 1.00 | EXTERNAL | | | | performed at [facility];[address] | mg/dL | LAB | | | | [address];[place] | | | | | | [address] | | | | + + + + + + | BUN/Creatin | 14Comment: Testing | | EXTERNAL | | | ine Ratio | performed at [facility];[address] | | LAB | | | | [address];[place] | | | | | | [address] | | | | + + + + + + | Calcium | 7.4 (L)Comment: Testing | 8.5 - 10.5 | EXTERNAL | | | | performed at [facility];[address] | mg/dL | LAB | | | | [address];[place] | | | | | | [address] | | | | + + + + + + | Protein, | 7.0Comment: Testing | 6.3 - 8.2 g/dL | EXTERNAL | | | Total | performed at [facility];[address] | | LAB | | | | [address];[place] | | | | | | [address] | | | | + + + + + + | Albumin | 2.6 (L)Comment: Testing | 3.3 - 4.8 g/dL | EXTERNAL | | | | performed at [facility];[address] | | LAB | | | | [address];[place] | | | | | | [address] | | | | + + + + + + | Globulin | 4.3Comment: Testing | 1.3 - 4.9 g/dL | EXTERNAL | | | | performed at [facility];[address] | | LAB | | | | [address];[place] | | | | | | [address] | | | | + + + + + + | A/G Ratio | 0.6 (L)Comment: Testing | 1.0 - 2.4 | EXTERNAL | | | | performed at [facility];[address] | | LAB | | | | [address];[place] | | | | | | [address] | | | | + + + + + + | Bilirubin | 0.4Comment: Testing | 0.1 - 1.5 mg/dL | EXTERNAL | | | Total | performed at [facility];[address] | | LAB | | | | [address];[place] | | | | | | [address] | | | | + + + + + + | ALP, | 92Comment: Testing | 35 - 115 U/L | EXTERNAL | | | External | performed at [facility];[address] | | LAB | | | | [address];[place] | | | | | | [address] | | | | + + + + + + | AST | 35Comment: SLT | 10 - 45 U/L | EXTERNAL | | | | HEMOLYSISTesting | | LAB | | | | performed at [facility];[address] | | | | | | [facility];[place] | | | | | | [address] | | | | + + + + + + | ALT | 29Comment: Testing | 10 - 65 U/L | EXTERNAL | | | | performed at [facility];[address] | | LAB | | | | [address];[place] | | | | | | [address] | | | | + + + [...] | at [facility];[address] [facility] | | | | | | Blvd;[place] [address] | | | | + + + [...] | LAB | | | | [address];[place], [place] | | | | | | [address] | | | | + + + [...] | Historically converted procedure from [facility] environment | EXTERNAL LAB | + [...] | | | | | | ACUTE [place] Testing | | | | | | performed at [facility];[address] | | | | | | [facility];[place], [place] | | | | | | [address] | | | | + + + [...] Testing performed at [facility], | | | [address] [place] [address] | | + + + + +---------+ [...] | | study for comparison: None FINDINGS: Manuscripts Archivist 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 | | | degenerative [...] study | | for comparison: None FINDINGS: Manuscripts Archivist 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 degenerative changes of the [...] | performed at [facility];[address] [place] [address];[place] [address] | | + + + + +---------+ [...] | | at [facility];[address] [place] [address] | | | | | | [facility];[place] [address] | | | | + + + [...] | LAB | | | | [address];[place], [place] | | | | | | [address] | | | | + + + [...] | performed at [facility] | | LAB | | | | [address];[place] | | | | | | [address] | | | | + + + [...] | LAB | | | | [address];[place], [place] | | | | | | [address] | | | | + + + [...] | | | | | [place] [address] | | | | + + + [...] [place] | | | | | | [address] | | | | + + + [...] | | | | | | editor index Shala Gramajo | | | | | [...] | LAB | | | | [address];[place] | | | | | | [address] | | | | + + + [...] | | LAB | | | | [facility];[place], [place] | | | | | | [address] | | | | + + + [...] | performed at [facility] | | | | | | [address];[place], [place] | | | | | | [address] | | | | + + + [...] | LAB | | | | [address];[place], [place] | | | | | | [address] | | | | + + + [...] | LAB | | | | [address];[place] | | | | | | [address] | | | | + + [...] | | | | | [address];[place] [address] | | | | + + + + + + | RED CELL | 4.17Comment: Testing | 3.70 - 5.10 | EXTERNAL | | | COUNT | performed at [facility];[address] | M/uL | LAB | | | | [address];[place] | | | | | | [address] | | | | + + + + + + | Hgb | 14.6Comment: Testing | 11.3 - 15.5 | EXTERNAL | | | | performed at [facility];888 | g/dL | LAB | | | | [address];[place] | | | | | | [address] | | | | + + + + + + | Hematocrit, | 42.7Comment: Testing | 34.0 - 46.0 % | EXTERNAL | | | POC | performed at [facility];[address] | | LAB | | | | [address];[place] | | | | | | [address] | | | | + + + + + + | MCV | 102.3 (H)Comment: | 80.0 - 100.0 fl | EXTERNAL | | | | Testing performed at | | LAB | | | | [facility];[address] | | | | | | [address];[place] [address] | | | | + + + [...] [place] | | | | | | [address] | | | | + + + + + + | RDW-CV | 49.9Comment: Testing | 37 - 53 fl | EXTERNAL | | | | performed at [facility];[address] | | LAB | | | | [address];[place] | | | | | | [address] | | | | + + + + + + | Platelet | 209Comment: Testing | 150 - 400 K/uL | EXTERNAL | | | Count | performed at [facility];[address] | | LAB | | | Plasma | [address];[place] | | | | | | [address] | | | | + + + + + + | MPV | 11.1Comment: Testing | fl | EXTERNAL | | | | performed at [facility];[address] | | LAB | | | | [address];[place] | | | | | | [address] | | | | + + + + + + | RBC | 1+Comment: GIANT | | EXTERNAL | | | Morphology | PLATELETS1+MACROTesting | | LAB | | | | performed at [facility];[address] | | | | | | [address];[place] | | | | | | [address] | | | | | |Testing performed at [facility];[address];[place] [address] | | | | | | | | | | + + + + + + | Differentia | MANUALComment: Testing | | EXTERNAL | | | l Type | performed at [facility];[address] | | LAB | | | | [address];[place] | | | | | | [address] | | | | + + + + + + | Segmented | 58Comment: Testing | % | EXTERNAL | | | Neutrophils | performed at [facility];[address] | | LAB | | | Manual | [address];[place] | | | | | | [address] | | | | + + + + + + | Lymphocytes | 32Comment: Testing | % | EXTERNAL | | | Manual | performed at [facility];[address] | | LAB | | | | [address];[place] | | | | | | [address] | | | | + + + + + + | Monocytes | 9Comment: Testing | % | EXTERNAL | | | Manual | performed at [facility];[address] | | LAB | | | | [address];[place] | | | | | | [address] | | | | + + + + + + | Eosinophils | 1Comment: Testing | % | EXTERNAL | | | Manual | performed at [facility];[address] | | LAB | | | | [address];[place] | | | | | | [address] | | | | + + + + + + | Absolute | 9.39 (H)Comment: Testing | 1.90 - 7.40 | EXTERNAL | | | Neutrophils | performed at [facility];888 | K/uL | LAB | | | | [address];[place] | | | | | | [address] | | | | + + + + + + | Absolute | 5.18 (H)Comment: Testing | 1.00 - 3.90 | EXTERNAL | | | Lymphocytes | performed at [facility];[address] | K/uL | LAB | | | | [address];[place] | | | | | | [address] | | | | + + + + + + | Absolute | 1.46 (H)Comment: Testing | 0.00 - 0.80 | EXTERNAL | | | Monocytes | performed at [facility];[address] | K/uL | LAB | | | | [address];[place] | | | | | | [address] | | | | + + + + + + | Absolute | 0.16Comment: Testing | 0.00 - 0.50 | EXTERNAL | | | Eosinophils | performed at [facility];[address] | K/uL | LAB | | | | [address];[place] | | | | | | [address] | | | | + + + + + + | Na | 140Comment: Testing | 135 - 143 | EXTERNAL | | | | performed at [facility];888 | mmol/L | LAB | | | | [address];[place] | | | | | | [address] | | | | + + + + + + | K | 2.8 (L)Comment: Testing | 3.5 - 4.9 | EXTERNAL | | | | performed at [facility];888 | mmol/L | LAB | | | | [address];[place] | | | | | | [address] | | | | + + + + + + | Cl | 100Comment: Testing | 99 - 109 mmol/L | EXTERNAL | | | | performed at [facility];[address] | | LAB | | | | [address];[place] | | | | | | [address] | | | | + + + + + + | CO2 | 29Comment: Testing | 23 - 32 mmol/L | EXTERNAL | | | | performed at [facility];[address] | | LAB | | | | [address];[place] | | | | | | [address] | | | | + + + + + + | Anion Gap | 14Comment: Testing | 5 - 20 mmol/L | EXTERNAL | | | | performed at [facility];[address] | | LAB | | | | [address];[place] | | | | | | [address] | | | | + + + + + + | Glucose, | 107 (H)Comment: Testing | 65 - 99 mg/dL | EXTERNAL | | | Fasting | performed at [facility];[address] | | LAB | | | | [address];[place] | | | | | | [address] | | | | + + + + + + | BUN | 28 (H)Comment: Testing | 8 - 25 mg/dL | EXTERNAL | | | | performed at [facility];[address] | | LAB | | | | [address];[place] | | | | | | [address] | | | | + + + + + + | Creatinine | 2.4 (H)Comment: Testing | 0.50 - 1.00 | EXTERNAL | | | | performed at [facility];[address] | mg/dL | LAB | | | | [address];[place] | | | | | | [address] | | | | + + + + + + | BUN/Creatin | 12Comment: Testing | | EXTERNAL | | | ine Ratio | performed at [facility];[address] | | LAB | | | | [address];[place] | | | | | | [address] | | | | + + + [...] [place] | | | | | | [address] | | | | + + + + + + | Albumin | 3.3Comment: Testing | 3.3 - 4.8 g/dL | EXTERNAL | | | | performed at [facility];[address] | | LAB | | | | [address];[place] | | | | | | [address] | | | | + + + + + + | Globulin | 6.0 (H)Comment: Testing | 1.3 - 4.9 g/dL | EXTERNAL | | | | performed at [facility] [place];[address] | | LAB | | | | [address];[place] | | | | | | [address] | | | | + + + + + + | A/G Ratio | 0.5 (L)Comment: Testing | 1.0 - 2.4 | EXTERNAL | | | | performed at [facility] [place] | | LAB | | | | [address];[place] | | | | | | [address] | | | | + + + + + + | Bilirubin | 0.4Comment: Testing | 0.1 - 1.5 mg/dL | EXTERNAL | | | Total | performed at [facility] [place];[address] | | LAB | | | | [address];[place] | | | | | | [address] | | | | + + + + + + | ALP, | 129 (H)Comment: Testing | 35 - 115 U/L | EXTERNAL | | | External | performed at [facility] [place] | | LAB | | | | [address];[place] | | | | | | [address] | | | | + + + + + + | AST | 39Comment: Testing | 10 - 45 U/L | EXTERNAL | | | | performed at [facility] [place];[address] | | LAB | | | | [address];[place] | | | | | | [address] | | | | + + + + + + | ALT | 38Comment: Testing | 10 - 65 U/L | EXTERNAL | | | | performed at [facility] [place];[address] | | LAB | | | | [address];[place] | | | | | | [address] | | | | + + + [...] | | | | | [address];[place] [address] | | | | + + + + + + | CK, Total | 151Comment: Testing | 30 - 240 U/L | EXTERNAL | | | | performed at [facility] [place];[address] | | LAB | | | | [address];[place] | | | | | | [address] | | | | + + + [...] [place] | | | | | | [address] | | | | + + + + + + | aPTT, | 26Comment: Testing | 23 - 32 seconds | EXTERNAL | | | Patient | performed at [facility] [place];[address] | | LAB | | | | [address];[place] | | | | | | [address] | | | | + + + + + + | CK-MB | 3.9 (H)Comment: Testing | 0.5 - 3.6 ng/mL | EXTERNAL | | | | performed at [facility] [place];[address] | | LAB | | | | [address];[place] | | | | | | [address] | | | | + + + [...] | | | | | | ACUTE [place] Testing | | | | | | performed at [facility] [place];[address] | | | | | | [facility] [facility];[place], [place] | | | | | | [address] | | | | + + + [...]
--- OUTSIDE RECORDS SUMMARY | ~2019-06-03 | XMS | Clinical Summary ---
Demographics + + + | Address | [address] | | | [place] [address] | + + + | Home Phone [...] Team Providers + +------+ + | Care Transition Program Manager Name | Role | Phone | [...] | [facility] | [facility] | [id number] | 05/23/19 | | | Medica | | | HEALTH | | 14-Pre | | | re | | | MDCR | | sent | | | | + +--------+ +--------+ +---------+--------+ | [facility] | [facility] | [id number] | 05/23/19 | | | Medica | | | HEALTH | | 19-Pre | | | re | | | MDCR | | sent | | | | + +--------+ +--------+ +---------+--------+ | [facility] | [facility] | [id number] | 05/30/19 | [phone] | | Medica [...] | | | | | | | [address] | + +--------+ +--------+ + + | Opal Petty | Person | Self [birth year] [address] | | [place]ie | al/Fam | | 1946 | [phone] | [address] | | | [place] | | | [address] (Home) | [place], [place] | | | | | | | [address] | + +--------+ +--------+ + + Advance Directives + + + + + | Type | Date Recorded | Patient | Explanation | | | | Box Sealing Machine 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
--- OUTSIDE RECORDS SUMMARY | 2019-06-03 17:02 | XMS ---
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 Care History Medical/Surgical 05/30/2019 [facility] Patient has follow up appointment on 06/05/[address] De Jesus 02/06/2018 [facility] - Patient is currently established with [facility]. If patient is seen in the ED during business hours. Please contact CHWs at [facility]. Care Recommendation: This patient has had [...] providing care. E.D. VISIT COUNT (12 MO.) 8 [facility]. TOTAL 8 NOTE: Visits indicate total known visits. ED/UCC VISIT TRACKING (12 MO.) 06/03/2019 17:00 [facility] TYPE: Emergency COMPLAINT: - WEAKNESS 05/29/2019 15:14 [facility] [place] TYPE: Emergency COMPLAINT: - HIGH HEARTRATE DIAGNOSES: - Chronic kidney disease, unspecified - Other salvage determiner (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 - Allergy status to narcotic agent status - medical terminologist (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 - Hypothyroidism, unspecified - Unspecified atrial fibrillation 05/19/2019 06:17 [facility] [place] TYPE: Emergency COMPLAINT: - SOB DIAGNOSES: - Unspecified atrial fibrillation - Chronic kidney disease, unspecified - medical terminologist (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 - Shortness of breath - Heart failure, unspecified - Allergy status to narcotic agent status - Hypothyroidism, unspecified - Other fci (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 05/09/2019 11:17 [facility] [place] TYPE: Emergency COMPLAINT: - AFIB 05/06/2019 15:13 [facility] [place] TYPE: Emergency COMPLAINT: - HEART PALPITATIONS DIAGNOSES: - Hypothyroidism, unspecified - Allergy status to narcotic agent status - Other salvage determiner (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 - Dyspnea, unspecified - [...] nicotine dependence - Unspecified atrial fibrillation - medical terminologist (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 - Chronic kidney disease, unspecified - Other salvage determiner (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 - Hypothyroidism, unspecified - Overexertion from prolonged static or awkward postures, init 06/04/2018 09:27 [facility] [place] TYPE: Emergency COMPLAINT: - WEAKNESS/COUGH INPATIENT VISIT TRACKING (12 MO.) 05/09/2019 11:18 [facility] [place] TYPE: Observation COMPLAINT: - AFIB DIAGNOSES: - Chronic respiratory failure with hypoxia - Other salvage determiner (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 - jail (current) use of opiate analgesic - Liver [...] right foot, init - [facility] (private) residence as place - Other salvage determiner (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 - Unspecified fall, initial encounter - Acute kidney failure, unspecified - Oth bacterial agents as the cause of diseases classd elswhr - Chronic kidney disease, unspecified - [facility] place [facility] (private) residence as place - Hypothyroidism, [...] coagulation profile - Scoliosis, unspecified - Other salvage determiner (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 - Adverse effect of [...] supplemental oxygen - Dependence on supplemental oxygen [email or web address]
--- NOTE | 2019-06-03 20:10 | NUR ---
pt ARRIVED TO FLOOR VIA STRETCHER. 2PA TO MOVE FROM STRETCHER TO BED. pt THEN REQUESTED TO VOID. UP TO BSC WITH FWW. pt TOLERATED WELL. BACK TO BED.
[2019-06-03] MEDS ORDERED: DILTIAZEM 24HR180 M1 PO (20:39)
--- NOTE | 2019-06-03 21:00 | NUR ---
MEDICATIONS GIVEN, IVF INFUSING (SEE MAR). pt SETTLED. ASSESSMENT DONE. JUICE PROVIDED. NO REQUESTS AT THIS TIME. CALL LIGHT WITHIN REACH.
--- NOTE | 2019-06-03 21:58 | NUR ---
ROUNDED ON pt. RESTING WITH EYES CLOSED, RESPIRATIONS REGULAR AND UNLABORED. CALL LIGHT WITHIN REACH.
--- NOTE | 2019-06-03 23:09 | NUR ---
ROUNDED ON pt. RESTING WITH EYES CLOSED, RESPIRATIONS REGULAR AND UNLABORED RATE = 12. CALL LIGHT WITHIN REACH.
--- NOTE | 2019-06-04 00:15 | NUR ---
ROUNDED ON pt. pt WOKE QUICKLY. ASSESSMENT DONE. NO REQUESTS AT THIS TIME. CALL LIGHT WITHIN REACH.
--- NOTE | 2019-06-04 01:00 | NUR ---
ROUNDED ON pt RESTING WITH EYES CLOSED, RESPIRATIONS REGULAR AND UNLABORED. CALL LIGHT WITHIN REACH.
--- NOTE | 2019-06-04 02:22 | NUR ---
ROUNDED ON pt. RESTING WITH EYES CLOSED, RESPIRATIONS REGULAR AND UNLABORED. CALL LIGHT WITHIN REACH.
--- NOTE | 2019-06-04 03:31 | NUR ---
ROUNDED ON pt. RESTING WITH EYES CLOSED, RESPIRATIONS REGULAR AND UNLABORED. CALL LIGHT WITHIN REACH.
--- NOTE | 2019-06-04 04:47 | NUR ---
IN TO DO ASSESSMENT. pt WOKE TO TOUCH. DENIES PAIN AT THIS TIME. NO REQUESTS. ASSESSMENT DONE. CALL LIGHT WITHIN REACH.
--- NOTE | 2019-06-04 05:29 | NUR ---
IN TO ASSIST WITH LAB DRAW. pt TOLERATED WELL. UP TO BSC. O2 SAT DOWN TO HIGH 70'S pt REPORTED FEELING SOB. AFTER REPOSITIONING AND REST pt SAT'S RECOVERED TO HIGH 90'S ON 4L O2. MEDICATIONS GIVEN (SEE MAR). pt RESTING IN BED. CALL LIGHT WITHIN REACH.
--- NOTE | 2019-06-04 06:56 | NUR ---
O2 SAT AT 88%, pt SLEEPING, RESPIRATIONS REGULAR. INCREASED O2 TO 5L.
[2019-06-04] MEDS ORDERED: TRAZODONE HCL100 MG PO (07:33)
--- NOTE | 2019-06-04 07:40 | NUR ---
Spoke with Opal. She is resting following Radiology. Has living in [place] 5 years, after moving here from [place] to be near her sister. Lives in [facility], [facility] [address] [facility]. States she has not been feeling well for last few weeks and has become less active. Pt has stopped cooking and eats yogurt or peanut butter, has stopped using walker and started using wc. Discussed if she feels she needs to discharge to a SNF. She states she will do so, if needed. Pt has PT and OT maggy ordered and will see what this shows.
--- NOTE | 2019-06-04 07:55 | NUR ---
ASSESSMENT DONE. UP TO COMMODE TO VOID. TO CHAIR FOR BREAKFAST. USES WALKER. C/O WEAKNESS AND FEELING TIRED. TALKED WITH PATIENT ABOUT POC. INDICATES UNDERSTANDING.
--- NOTE | 2019-06-04 09:30 | NUR ---
ROUTINE MEDICATIONS GIVEN. TOOK BREAKFAST WELL. DR. YU AWARE OF BP.
--- NOTE | 2019-06-04 09:31 | NUR ---
Medications reconciled using pharmacy records and patient interview. Patient will take her own cyclosporine. Please assure that it is returned to her prior to discharge
--- NOTE | 2019-06-04 09:39 | NUR ---
DR. YU HERE TO SEE PATIENT, LIZ RECIEVED TO DO ORTHROS. THIS DONE. SEE VS. DENIES DIZZINESS WITH MOVEMENT. IS SOMEWHAT SHORT OF BREATH WITH EXERTION. C/O WEAKNESS. IVF REMAIN PATIENT. FAMILY MEMBERS IN ROON.
--- NOTE | 2019-06-04 11:00 | NUR ---
SITTING AT BEDSIDE. NO DISTRESS NOTED. DENIES DIZZINESS.
--- NOTE | 2019-06-04 11:09 | NUR ---
LAYING DOWN IN BED. DENIES PROBLEMS.
--- NOTE | 2019-06-04 12:00 | NUR ---
assessment unchanged. C/O SLIGHT PAIN IN RIGHT MID LATERAL BACK. PATIENT STATES SHE HAS HAD THIS PAIN FOR A COUPLE OF WEEK AND THAT SOMETIMES IT IS A LITTLE WORSE SOMETOMES NOT BAD. RATES CURRENT PAIN 07/30. WILL NOTIFY DR. YU. SITTING UP IN BED EATING LUNCH.
--- NOTE | 2019-06-04 12:57 | NUR ---
WILL BE TRANSFERRED TO MEDICAL FLOOR TODAY. RESTFUL.
--- NOTE | 2019-06-04 13:15 | NUR ---
report given to med-SURG
--- NOTE | 2019-06-04 13:22 | NUR ---
PT APPEARS ALERT AND ORIENTED WATCHING TV. HER SISTER AND SERVICE MECHANIC HAVE BEEN BY TODAY AND SHE IS FEELING MUCH BETTER. PT WILL BE MOVED TO M/S LATER THIS PM. EXTENDED A BLESSING, WILL FOLLOW NEEDED
--- NOTE | 2019-06-04 13:25 | NUR ---
TO MED- SURG VIA BED.
--- NOTE | 2019-06-04 13:30 | NUR ---
PT ARRIVED FROM CCU AT THIS TIME. PT IS ALERT AND ORIENTED, ON TELEMETRY. REPORTS NO PAIN OR NAUSEA AT THIS TIME.
--- NOTE | 2019-06-04 15:14 | NUR ---
PT V/S STABLE NO DISTRESS PT WATCHING TV ON 3L OXYGEN 96% OXYGEN SATURATION.
--- NOTE | 2019-06-04 16:00 | NUR ---
Spoke with OT and PT. Both feel pt was able complete tasks. PT Josette, feels pt would benefit from Home Health. Will notify Dr. Malin.
--- NOTE | 2019-06-04 16:03 | NUR ---
PATIENT RESTING IN BED. PATIENT ASKS FOR SODA. SODA GIVEN. CALL LIGHT WITHIN REACH. NO OTHER NEEDS AT THIS TIME
--- NOTE | 2019-06-04 16:23 | NUR ---
PT TRANSFER FROM CCU THIS AFTERNOON. SHE HAS BEEN UP WITH PHYSCIAL THERAPY. SHE DHAS BEEN UP TO BEDSIDE COMMODE FOR BM. V/S STABLE. ON TELE WITH AFIB. REPORTS NO PAIN.
--- NOTE | 2019-06-04 16:25 | NUR ---
PT REPORTS THAT SHE IS GOOD TO DISCHARGE BEN PHYSICAL THERAPY.
--- NOTE | 2019-06-04 17:06 | NUR ---
VISITED WITH PT AND HER SISTER JARVIS. PT STATES UNDERSTANDING OF MOST OF HER MEDICAL HISTORY. SHE IS A LITTLE UNSURE SO MUCH ABOUT HER AFIB--WILL DISCUSS THAT AND MEDS TOMORROW WITH HER. PT USES A WALKER AT HOME, STILL COOKS SOME FOR HERSELF. HAS A CAREGIVER 4 HOURS M-F AND FAMILY TO HELP AT OTHER TIME. [facility]. STATES SHE DOESN'T GET OUT ALOT BUT TO SHOP AND OCCASIONALLY WATCH A MOVIE OR GO TO THE [place]. ENJOYS SPENDING TIME WITH HER SISTER.
--- NOTE | 2019-06-04 17:24 | NUR ---
PT REPOSITIONED, FLOATING HIPS WITH PILLOWS AT THIS TIME. CHANGED PT DEPENDS SHE HAD INCONT. OF URINE.
--- NOTE | 2019-06-04 18:00 | NUR ---
PT SITTING UP WATCHING TV WITH VISITOR AT BEDSIDE, PT REPORTS NO PAIN OR NAUSEA. NO REQUESTS AT THIS TIME.
--- NOTE | 2019-06-04 19:15 | NUR ---
NEAR 1903 CHARGE NURSE REPORT RECEIVED FROM [facility]. PT IN BED, WATCHING TV, WITH NO NEEDS AT THIS TIME.
--- NOTE | 2019-06-04 19:48 | NUR ---
REPORT RECEICVED FROM DAY SHIFT RN. PT LYING IN BED, ALERT AND ORIENTED. IV ABX INFUSING. O2 3L/NC IN PLACE. PT DENIES NEEDS AT THIS TIME. CALL LIGHT IN REACH.
--- NOTE | 2019-06-04 20:06 | NUR ---
CALL LIGHT ANSWERED. PT UP TO BSC WITH FWW AND SBA. BACK TO BED, KAVON WELL. DENIES SOB OR DIZZINESS. CALL LIGHT IN REACH.
--- NOTE | 2019-06-04 21:00 | NUR ---
PM ASSESSMENT COMPLETE. PM MEDS GIVEN WITHOUT DIFFICULTY. TELE #3, AFIB, HR 80-90'S. OXYGEN 3L/NC IN PLACE. DENIES PAIN. NO FURTHER NEEDS AT THIS TIME. CALL LIGHT IN REACH.
--- NOTE | 2019-06-04 22:50 | NUR ---
ASSISTED PATIENT TO USE THE BEDSIDE COMMODE USING WALKER. PATIENT IS BACK IN BED. SOCKS OFF. CALL LIGHT IN REACH.
--- NOTE | 2019-06-04 23:09 | NUR ---
ANSWERED CALL LIGHT. PATIENT C/O CHEST PAIN. DIE CUTTING MACHINE OPERATOR, PRIMARY RN, RT, FLOAT MARKETING REP AND THIS MARKETING REP ATTENDED THE PATIENT.
--- NOTE | 2019-06-04 23:15 | NUR ---
PT C/O CHEST PAIN AFTER BEING UP TO BSC. EKG DONE, VSS, HR 80-90'S. NOTIFIED, NO ORDERS RECEIVED. PT RESTING IN BED AT THIS TIME, NO FURTHER C/O CHEST PAIN. 3L/NC IN PLACE. CALL LIGHT IN REACH.
--- NOTE | 2019-06-05 00:51 | NUR ---
PT RESTING IN BED WITH EYES CLOSED, NAD. RR EVEN AND UNLABORED. TELE #3, HR 91. CALL LIGHT IN REACH.
--- NOTE | 2019-06-05 02:32 | NUR ---
SCHEDULED MEDS GIVEN. PT DENIES CHEST PAIN OR SOB. STATES SHE'S "RESTING WELL". TELE #3, HR IN THE 90'S. A-FIB. NO FURTHER NEEDS AT THIS TIME, CALL LIGHT IN REACH.
--- NOTE | 2019-06-05 03:34 | NUR ---
patient used call light to ask for assistance onto bed side commede. She resulted in 550ccs of urine. Patient was assisted back into bed without any troubles, nothing further needed at this time.
--- NOTE | 2019-06-05 04:22 | NUR ---
PATIENT IS SLEEPING.
--- NOTE | 2019-06-05 04:56 | NUR ---
PT RESTED WELL. A&O, USES CALL LIGHT. DENIES PAIN. FWW WITH SBA TO BSC. TELE #3, AFIB. EPISODE OF CHEST PAIN LAST NIGHT, MD AWARE. CHRONIC O2 2-4L, CURRENTLY ON 3L/NC. IV ABX.
--- NOTE | 2019-06-05 06:12 | NUR ---
AM MEDS GIVEN. PT UP TO BSC WITH FWW AND SBA, GAIT STEADY. BACK TO BED, KAVON WELL. DENIES CHEST PAIN OR SOB. O2 3L/NC IN PLACE. IV ABX INFUSING. CALL LIGHT IN REACH.
--- NOTE | 2019-06-05 07:15 | NUR ---
PT RESTING IN SEMIFOWLERS POSITION IN BED, EYES CLOSED AND RESPIRATIONS EVEN AND UNLABROED ON 3LPNC. PT APPEARS TO BE SLEEPING COMFORTABLY. CALL LIGHT AND H2O IN REACH. BEDSIDE REPORT RECEIVED FROM ROB MONDRAGON.
--- NOTE | 2019-06-05 07:45 | NUR ---
PT UP FROM COMMODE TO CHAIR WITH ASSSITANCE FROM ROB FOOTE. PT'S BREAKFAST ARRIVED, PT ASSISTED IN SETTING UP TRAY AN STATES SHE IS COMFORTABLE. CALL LIGHT AND H2O ALSO IN REACH.
--- NOTE | 2019-06-05 08:20 | NUR ---
PT SITTING UP IN CHAIR EATING BREAKFAST. AM MEDS ADMINISTERED AND ASSESSMENT COMPELTED. VSS ON 3LPNC AND PT DENIES SOB, PAIN OR NAUSEA. CALL LIGHT AND H2O IN REACH AND PT DENIES FURTHER NEEDS.
--- NOTE | 2019-06-05 08:50 | NUR ---
Spoke with Opal. Updated, per 829 report she will more than likely dc today. Let her know PT and OT state she has met goals and [place]. They recommend she have Home Health services to maintain and inprove walking. [facility] and [facility]. Pt would like [facility] and I will send her chart when dc summary written.
--- NOTE | 2019-06-05 09:00 | NUR ---
TALKED WITH PT ABOUT HER UTI AND AFIB, PT STATES UNDERSTANDING OF THESE, PRINTOUTS GIVEN TO HER. DENIES FURTHER QUESTIONS EXCEPT WANTING TO KNOW ABOUT HER CARDIZEM. WILL GET INFORMATION AND GO OVER IT WITH PT.
--- NOTE | 2019-06-05 09:25 | NUR ---
PATIENT UP TO BSC AND BACK TO CHAIR, 1PA. PATIENT REFUSED AM CARE AND SHOWER, SHE SAID SHE WOULD DO IT WHEN SHE GETS HOME. LINENS CHANGED. CALL LIGHT IN REACH. NO FURTHER NEEDS AT THIS TIME.
--- NOTE | 2019-06-05 09:50 | NUR ---
IV PUMP BEEPING, DISTAL OCCLUSION; ENCOURAGED PT TO KEEP ARM FROM BENDING WHILE IV INFUSING. ABX INFUSING ORDERED. CALL LIGHT AND H2WO IN REACH. NO FURTHER NEEDS OR CONCERNS VOICED.
--- NOTE | 2019-06-05 10:37 | NUR ---
WENT IN AND TALKED WITH PT AND HER SISTER ABOUT HER MEDS, ESPECIALLY HER CARDIZEM, THE REASON SHE IS ON IT AND SIDE EFFECTS. PT STATES UNDERSTANDING OF THIS AND WE ALSO REVIEWED HER OTHER MEDS. SHE STATES UNDERSTANDING OF THESE. DENIES FURTHER QUESTIONS AT THIS POINT.
--- NOTE | 2019-06-05 11:18 | NUR ---
PT SITTING UP IN CHAIR-ALERT, ORIENTED AND VISITING WITH HER SISTER JARVIS. PT MENTIONED THAT SHE GOT SEVERAL HOURS SLEEP WHICH SHE SAID WAS GOOD FOR HER. PT MENTIONED THAT [facility] WAS COMING FOR COMMUNION TODAY, PT SEEMED EXCITED. HAD PLEASANT VISIT WITH BOTH, EXTENDED A BLESSING. WILL FOLLOW NEEDED
--- NOTE | 2019-06-05 12:15 | NUR ---
PT TOLERATED ONE LAP AROUND NURSING STATION WITH ONE SHORT RESTING BREAK AT HALF WAY NO DUE TO FATIGUE. PT TOLERATED WELL OVER ALL WITH SLOW BUT STEADY GAIT WITH USE OF FWW AND REQUIRED ONLY MINIMAL 1 PERSON SBA. PT BACK TO BED WITH CALL LIGHT AND H2O IN REACH. PT BACK TO 3LPNC AND DENIES SOB, PAIN OR OTHER SYMPTOMS OR NEEDS. PT SITTING UP IN BED EATING LUNCH AND VISITORS NOW AT BEDSIDE.
--- NOTE | 2019-06-05 13:24 | NUR ---
PATIENT UP TO BATHROOM AND BACK TO BED, 1PA FWW. FRESH WATER GIVEN. CALL LIGHT IN REACH. NO FURTHER NEEDS AT THIS TIME.
--- NOTE | 2019-06-05 14:03 | NUR ---
PT RESTING SUPINE IN BED ALERT AND ORIENTED. PT DENIES SOB, PALPITATIONS, PAIN OR NAUSEA. PT STATES "NO I'M FINE I'M JUST TIRED SO I HOPE I'M ABLE TO TAKE A NAP NOW". ASSESSMENT COMPLETED AND SCHEDULED MEDS ADMINISTERED -SEE EMAR. CALL LIGHT AND H2O IN REACH. PT DENIES FURTHER NEEDS OR CONCERNS.
--- NOTE | 2019-06-05 15:35 | NUR ---
PT RESTING SUPINE IN BED ALERT AND ORIENTED X4 PT ASSISTED UP TO BSC WITH SBA AND THEN BACK TO BED. PT STATES "I JUST FEEL SO TIRED, IS THERE ANYTHING THE DOCTOR CAN GIVE ME TO HELP ME SLEEP?". PT ALSO WAS NOTED TO BE TACHYCARDIC WITH HR BETWEEN 90'S TO 130'S BUT MOSTLY IN THE 110'S. DR YU NOTIFIED OF THIS AND OF PT'S INABILITY TO SLEEP DESPITE FEELING EXHAUSTED. NO NEW ORDERS RECEIVED. SLEEP MASK, EER PLUGS AND LAVANDER SCENT PROVIDED TO PATIENT AND SUN SHADE DRAWN SHUT PER PT'S REQUEST. CALL LIGHT AND H2O IN REACH AND PT DENIES SOB, PAIN, NAUSEA OR ANY OTHER SYMPTOMS.
--- NOTE | 2019-06-05 17:36 | NUR ---
PATIENT IN BED RESTING. CALL LIGHT IN REACH. NO FURTHER NEEDS AT THIS TIME.
--- NOTE | 2019-06-05 18:35 | NUR ---
IN TO ANSWER CALL LIGHT. PT REQUESTS TO "CHECK OUT OF THE HOSPITAL" SHE STATES SHE FEELS EXHAUSTED AND JUST WANTS TO TAKE HER TRAZADONE. PT'S HR CONSISTANTLY IN 120' TO 130'S. NOTIFIED OF PT'S S/SX'S. PER DR YU, HE WILL ENTER ORDERS TO EMAR.
--- NOTE | 2019-06-05 19:40 | NUR ---
BEDSIDE REPORT RECEIVED FROM ROB MILLS. SCHEDULED CARDIZEM ADMINISTERED EARLY PER MD TELEPHONE ORDER. HR IRREGULAR TELE 3, 115-126. pt RESTING IN BED. BED ALARM ON, 3L OXYGEN BY NC IN PLACE.
--- NOTE | 2019-06-05 20:39 | NUR ---
pt ASSESSMENT COMPLETE. HR 113-120, IRREGULAR TELE 3. SCHEDULED MEDICATIONS ADMINISTERED. pt ALERT AND ORIENTED TO ALL. SBA TO RESTROOM FOR VOID AND BACK TO BED, KAVON. WELL WITH FWW. BED ALARM ON. BLANKET PROVIDED. CALL LIGHT IN REACH.
--- NOTE | 2019-06-05 20:55 | NUR ---
HOLTER MONITOR PLACED ON pt WITH RT PETER ASSIST. pt RESTING IN BED. BED ALARM ON.
--- NOTE | 2019-06-06 00:49 | NUR ---
pt RESTING IN BED WITH EYES CLOSED. BREATHING EQUAL AND UNLABORED. LIGHTS OFF IN ROOM. BED ALARM ON. 3L OXYGEN BY NC IN PLACE. HR 99-111 ON TELE 3.
--- NOTE | 2019-06-06 01:35 | NUR ---
BED ALARM SOUNDING. pt INCONTINENT IN ATTENDS. ATTENDS AND LINENS CHANGED. WARM BLANKETS PROVIDED. pt UP TO CHAIR AND BACK TO BED SBA W FWW. VSS. SCHEDULED CARDIZEM ADMINISTERED ORDERED. EDUCATION PROVIDED, QUESTIONS ANSWERED. ASSESSMENT COMPLETE. HR 98-106 ON TELE 3, AFIB. BED ALARM ON, CALL LIGHT IN REACH.
--- NOTE | 2019-06-06 03:55 | NUR ---
pt BACK IN BED AFTER VOID W CORPORATE ETHICS OFFICER August. NO REQUESTS AT THIS TIME. 3L OXYGEN BY NC IN PLACE. BED ALARM ON.
--- NOTE | 2019-06-06 05:03 | NUR ---
pt ON 3L OXYGEN BY NC. SPO2 WNL. AFIB ON TELE 3. RATE CONTROLLED WITH SCHEDULED CARDIAC MEDICATIONS. SBA WITH FWW TO RESTROOM, QS VOIDS. INCONTINENT IN ATTENDS X 1. USING CALL LIGHT APPROPRIATELY. ALERT AND ORIENTED.
--- NOTE | 2019-06-06 06:06 | NUR ---
SCHEDULED MEDICATIONS ADMINISTERED. VSS. pt DENIES TOILETING NEEDS. pt REQUESTING TO GO BACK TO SLEEP.
--- NOTE | 2019-06-06 07:16 | NUR ---
REPORT RECEIVED FROMROB URIAS. PT APPEARS TO BE SLEEPING.
--- NOTE | 2019-06-06 07:52 | NUR ---
Notified RT, Opal Gutiérrez's halter monitor fell off. He will notify Vannessa in RT.
--- NOTE | 2019-06-06 07:57 | NUR ---
PT CALLED TO GET UP TO RESTROOM. HAD BM. PT REFUSED TO SIT UP IN CHAIR, STATES SHE WANTS TO GET INTO BED AND STAY THERE. EDUCATED PT ON NEED TO SIT UP IN CHAIR FOR PARTS OF THE DAY ATLEAST. PT DECLINING BREAKFAST ATT, STATES SHE IS NOT HUNGRY.
--- NOTE | 2019-06-06 09:00 | NUR ---
In and spoke with Salud. She plans on discharging today. Sister will pick her up. She would like Home Health PT through [facility]. Denies concerns to go home.
--- NOTE | 2019-06-06 09:24 | NUR ---
PT AMBULATED IN [place] WITH PORTABLE O2. HR STAYED STEADY BETWEEN 92-106. PT RESTED ONCE.
--- NOTE | 2019-06-06 10:10 | NUR ---
PT ASSISTED UP TO RESTROOM, FEELS THE NEED TO HAVE DIAHRREA.
[2019-06-06] MEDS ORDERED: AMOX TR-K CLV1 EACH PO (11:32)
[2019-06-06] MEDS ORDERED: TOPROL XL200 MG PO (11:33)
[2019-06-06] MEDS ORDERED: TRAZODONE HCL100 MG PO (11:34)
[2019-06-06] MEDS ORDERED: CARDIZEM LA360 MG PO (11:34)
--- NOTE | 2019-06-06 12:34 | NUR ---
PT ALERT, ORIENTED AND SUPPORTED BY HER SISTER AJRVIS. PT IS TO BE DC'D LATER TODAY AND SEEMS EXCITED AND GLAD SHE STAYED ANOTHER DAY. GOOD VISIT, PT SEEMS READY. PT REQUESTED PRAYER, WILL FOLLOW NEEDED
--- NOTE | 2019-06-06 14:35 | NUR ---
SENT CHART NOTES TO [facility] VIA SCAN TO [facility] DEPT HEAD SECURELY. THIS INCLUDED FACE SHEET, ER NOTES, H AND P, DC SUMMARY, PT AND OT EVAL AND NOTES.
--- NOTE | 2019-06-06 19:27 | EKG ---
[facility] [address] [place] [address] Signed Atrial fibrillation Possible Anterior infarct , age undetermined Abnormal ECG When compared with ECG of 29-MAY-2019 15:24, Vent. rate has decreased BY 66 BPM Non-specific change in ST segment in Lateral leads Confirmed by OLIVERIO YU MD ([id number]) on 06/06/2019 7:27:30 PM Electronically Signed By: OLIVERIO YU MD 06/06/19 1927 PATIENT NAME: COLE ERNST Electrocardiogram DATE OF : 45 PHYSICIAN: OLIVERIO YU MD REPORT #: [id number] REPORT IS CONFIDENTIAL AND NOT TO BE RELEASED WITHOUT AUTHORIZATION
== END 2019-06-06 12:51 | disposition home health service (06) | DRG 683 ==
LOC: ED 16:59 → CCU 19:31 → MS 06-04 13:30
PROVIDERS: ADMIT Internal Medicine
DX: N17.9 Acute kidney failure, unspecified (principal); N30.00 Acute cystitis without hematuria; Z94.4 Liver transplant status; I48.19 Other persistent atrial fibrillation; J96.11 Chronic respiratory failure with hypoxia; B96.1 Klebsiella pneumoniae [K. pneumoniae] as the cause of diseases classified elsewhere; I10 Essential (primary) hypertension; M54.9 Dorsalgia, unspecified; G89.4 Chronic pain syndrome; D64.9 Anemia, unspecified; E78.5 Hyperlipidemia, unspecified; E03.9 Hypothyroidism, unspecified; F51.04 Psychophysiologic insomnia; E79.0 Hyperuricemia without signs of inflammatory arthritis and tophaceous disease; F39 Unspecified mood [affective] disorder; J98.4 Other disorders of lung; R40.0 Somnolence; T43.215A Adverse effect of selective serotonin and norepinephrine reuptake inhibitors, initial encounter; Y92.239 Unspecified place in hospital as the place of occurrence of the external cause; Z66 Do not resuscitate; Z79.899 Other long term (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; Z88.5 Allergy status to narcotic agent; Z79.01 Long term (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; Z79.83 Long term (current) use of bisphosphonates
CPT/HCPCS: 36415; 51701; 71045; 80048; 80053; 80158; 81001; 82607; 82728; 82746; 83540; 84466; 85025; 85045; 85610; 87077; 87088; 87186; 93005; 93010; 93306; 94760; 97116; 97162; 97165; 97535; 99285-25; J0692; J7030; J7060

== ENCOUNTER 2019-06-12 11:06 | Emergency (ER) | payer MEDICARE, OTHER ==
[~2019-06-12] VITALS: Ht 157.5 cm; Wt 94.3 kg
[~2019-06-12 11:06] MED LIST changes: +AMOX TR-K CLV1 EACH PO; +CARDIZEM LA360 MG PO
--- OUTSIDE RECORDS SUMMARY | 2019-06-12 11:10 | XMS ---
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 Care History Medical/Surgical 06/04/2019 [facility] Patient was admitted 06/03/2019.\T\nbsp; Referral made for business development agent on 11/2019.\T\nbsp;Has a scheduled appointment on 06/05/[address] De Jesus. 05/30/2019 [facility] Patient has follow up appointment on 06/05/[address] De Jesus 02/06/2018 [facility] - Patient is currently established with [facility]. If patient is seen in the ED during business hours. Please contact CHWs at [facility]. Care Recommendation: This patient has [...] known visits. ED/UCC VISIT TRACKING (12 MO.) 06/12/2019 11:06 [facility] TYPE: Emergency COMPLAINT: - FALL 06/03/2019 17:00 [facility] TYPE: Emergency COMPLAINT: - WEAKNESS 05/29/2019 15:14 [facility] TYPE: Emergency COMPLAINT: - HIGH HEARTRATE DIAGNOSES: - Chronic kidney disease, unspecified - Other meterman (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 - Allergy status to narcotic agent status - alf (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 - Hypothyroidism, unspecified - Unspecified atrial fibrillation 05/19/2019 06:17 [facility] TYPE: Emergency COMPLAINT: - SOB DIAGNOSES: - Unspecified atrial fibrillation - Chronic kidney disease, unspecified - ferry terminal agent (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 - Shortness of breath - Heart failure, unspecified - Allergy status to narcotic agent status - Hypothyroidism, unspecified - Other meterman (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 05/09/2019 11:17 [facility] TYPE: Emergency COMPLAINT: - AFIB 05/06/2019 15:13 [facility] TYPE: Emergency COMPLAINT: - HEART PALPITATIONS DIAGNOSES: - Hypothyroidism, unspecified - Allergy status to narcotic agent status - Other mcc (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 - Dyspnea, unspecified - [...] nicotine dependence - Unspecified atrial fibrillation - ferry terminal agent (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 - Chronic kidney disease, unspecified - Other mcc (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 - Hypothyroidism, unspecified - Overexertion from prolonged static or awkward postures, init INPATIENT VISIT TRACKING (12 MO.) 06/03/2019 19:31 [facility] TYPE: Medical Surgical COMPLAINT: - UTI DIAGNOSES: - Do not resuscitate - ferry terminal agent (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 - Essential (primary) hypertension - Somnolence - Somnolence - Unsp place in hospital as place - Essential (primary) hypertension - Unsp place in hospital as place - Other persistent atrial fibrillation - Hyperlipidemia, unspecified - Klebsiella pneumoniae as the cause of diseases classd elswhr - Dorsalgia, unspecified - Hypothyroidism, unspecified - Hyperuricemia w/o signs of inflam arthrit and tophaceous dis - Liver transplant status - alf (current) use of bisphosphonates - Advrs effect of slctv seroton/norepineph reup inhibtr, init - Advrs effect of slctv seroton/norepineph reup inhibtr, init - Chronic respiratory failure with hypoxia - Chronic respiratory failure with hypoxia - Unspecified mood [affective] disorder - Hypothyroidism, unspecified - Other persistent atrial fibrillation - Chronic pain syndrome - Allergy status to narcotic agent status - Acute cystitis without hematuria - Hyperuricemia w/o signs of inflam arthrit and tophaceous dis - alf (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 - Anemia, unspecified - Dorsalgia, unspecified - Hyperlipidemia, unspecified - Unspecified mood [affective] disorder - Liver transplant status - Other disorders of lung - alf (current) use of bisphosphonates - Acute kidney failure, unspecified - Chronic pain syndrome - Other mcc (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 - Psychophysiologic insomnia - Other disorders of lung - Other mcc (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 - Psychophysiologic insomnia - Acute cystitis without hematuria - Do not resuscitate - Klebsiella pneumoniae as the cause of diseases classd elswhr - Anemia, unspecified - Allergy status to narcotic agent status 05/09/2019 11:18 [facility] TYPE: Observation COMPLAINT: - AFIB DIAGNOSES: - Chronic respiratory failure with hypoxia - Other meterman (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 - ferry terminal agent (current) use of opiate analgesic - Liver [...] right foot, init - Unsp place in [facility] as place - Other mcc (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 - Unspecified fall, initial encounter - Acute kidney failure, unspecified - Oth bacterial agents as the cause of diseases classd elswhr - Chronic kidney disease, unspecified - [facility] place in [facility] ([facility] residence as place - Hypothyroidism, unspecified [...] coagulation profile - Scoliosis, unspecified - Other mcc (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 - Adverse effect of [...] Other chronic pain - Restless legs syndrome [email or web address]
--- NOTE | 2019-06-12 13:07 | EKG ---
[facility] [address] [facility] [place], [place] [address] Signed Atrial fibrillation Abnormal ECG When compared with ECG of 04-JUN-2019 23:02, No significant change was found Confirmed by TODD ORELLANA DO ([id number]) on 06/12/2019 1:06:57 PM Electronically Signed By: TODD ORELLANA DO 06/12/19 1307 PATIENT NAME: COLE ERNST RAUDEL Electrocardiogram DATE OF : 45 PHYSICIAN: TODD ORELLANA DO REPORT #: [id number] REPORT IS CONFIDENTIAL AND NOT TO BE RELEASED WITHOUT AUTHORIZATION
== END 2019-06-12 14:56 | disposition home or self-care (01) ==
LOC: ED 11:06
DX: N18.9 Chronic kidney disease, unspecified (principal); E03.9 Hypothyroidism, unspecified; I48.91 Unspecified atrial fibrillation; Z88.5 Allergy status to narcotic agent; Z79.899 Other long term (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; Z79.01 Long term (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
CPT/HCPCS: 80053; 85025; 93005; 93010; 99285-25

== ENCOUNTER 2019-06-13 09:13 | Emergency (ER) | payer MEDICARE, OTHER ==
[~2019-06-13] VITALS: Ht 157.5 cm; Wt 94.3 kg
--- OUTSIDE RECORDS SUMMARY | 2019-06-13 09:18 | XMS ---
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 Care History Medical/Surgical 06/04/2019 [facility] Patient was admitted 06/03/2019.\T\nbsp; Referral made for gas processing plant operator on 11/2019.\T\nbsp;Has a scheduled appointment on 06/05/[address] De Jesus. 05/30/2019 [facility] Patient has follow up appointment on 06/05/[address] De Jesus 02/06/2018 [facility] - Patient is currently established with [facility]. If patient is seen in the ED during business hours. Please contact CHWs at [facility]. Care Recommendation: This patient has had [...] providing care. E.D. VISIT COUNT (12 MO.) 9 [facility]. TOTAL 9 NOTE: Visits indicate total known visits. ED/UCC VISIT TRACKING (12 MO.) 06/13/2019 09:14 [facility] [place] TYPE: Emergency COMPLAINT: - FALL 06/12/2019 11:06 [facility] [place] TYPE: Emergency COMPLAINT: - FALL 06/03/2019 17:00 [facility] [place] TYPE: Emergency COMPLAINT: - WEAKNESS 05/29/2019 15:14 [facility] [place] TYPE: Emergency COMPLAINT: - HIGH HEARTRATE DIAGNOSES: - Chronic kidney disease, unspecified - Other ferry terminal supervisor (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 - Allergy status to narcotic agent status - assisted (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 - Hypothyroidism, unspecified - Unspecified atrial fibrillation 05/19/2019 06:17 [facility] [place] TYPE: Emergency COMPLAINT: - SOB DIAGNOSES: - Unspecified atrial fibrillation - Chronic kidney disease, unspecified - remote computer terminal operator (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 - Shortness of breath - Heart failure, unspecified - Allergy status to narcotic agent status - Hypothyroidism, unspecified - Other detention (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 05/09/2019 11:17 [facility] [place] TYPE: Emergency COMPLAINT: - AFIB 05/06/2019 15:13 [facility] [place] TYPE: Emergency COMPLAINT: - HEART PALPITATIONS DIAGNOSES: - Hypothyroidism, unspecified - Allergy status to narcotic agent status - Other ferry terminal supervisor (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 - Dyspnea, unspecified - [...] nicotine dependence - Unspecified atrial fibrillation - assisted (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 - Chronic kidney disease, unspecified - Other detention (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 - Hypothyroidism, unspecified - Overexertion from prolonged static or awkward postures, init INPATIENT VISIT TRACKING (12 MO.) 06/03/2019 19:31 [facility] [place] TYPE: Medical Surgical COMPLAINT: - UTI DIAGNOSES: - Do not resuscitate - remote computer terminal operator (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 - Essential (primary) [...] tophaceous dis - Liver transplant status - assisted (current) use of bisphosphonates - Advrs effect [...] of inflam arthrit and tophaceous dis - assisted (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 - Anemia, unspecified - Dorsalgia, unspecified - Hyperlipidemia, unspecified - Unspecified mood [affective] disorder - Liver transplant status - Other disorders of lung - remote computer terminal operator (current) use of bisphosphonates - Acute kidney failure, unspecified - Chronic pain syndrome - Other ferry terminal supervisor (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 - Psychophysiologic insomnia - Other disorders of lung - Other detention (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 - Psychophysiologic insomnia - Acute cystitis without hematuria - Do not resuscitate - Klebsiella pneumoniae as the cause of diseases classd elswhr - Anemia, unspecified - Allergy status to narcotic agent status 05/09/2019 11:18 [facility] [place] TYPE: Observation COMPLAINT: - AFIB DIAGNOSES: - Chronic respiratory failure with hypoxia - Other detention (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 - remote computer terminal operator (current) use of opiate analgesic - Liver [...] right foot, init - Unsp place in [facility] (private) residence as place - Other detention (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 - Unspecified fall, initial encounter - Acute kidney failure, unspecified - Oth bacterial agents as the cause of diseases classd elswhr - Chronic kidney disease, unspecified - [facility] place in [facility] (private) residence as place - Hypothyroidism, [...] coagulation profile - Scoliosis, unspecified - Other detention (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 - Adverse effect of [...] Other chronic pain - Restless legs syndrome [email or web address]
== END 2019-06-13 10:46 | disposition home or self-care (01) ==
LOC: ED 09:13
DX: S80.01XA Contusion of right knee, initial encounter (principal); W19.XXXA Unspecified fall, initial encounter; E03.9 Hypothyroidism, unspecified; I48.91 Unspecified atrial fibrillation; Z88.5 Allergy status to narcotic agent; Z79.899 Other long term (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; Z79.01 Long term (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
CPT/HCPCS: 73560; 99283-25

== ENCOUNTER 2019-09-28 20:00 | Emergency (ER) | payer MEDICARE, OTHER ==
[~2019-09-28] VITALS: Ht 157.5 cm; Wt 99.3 kg
--- OUTSIDE RECORDS SUMMARY | ~2019-09-28 | XMS | Clinical Summary ---
Demographics + + + | Address | [address] | | | [place] [address] | + + + | Home Phone | | + + + | Preferred Language | Unknown | + + + | Marital Status | Unknown | + + + | Restoration Affiliation | Unknown | + + + | Race | Unknown | + + + | Ethnic Group | Unknown | + + + Author + + + | Author | [facility] | + + + | Organization | [facility] | + + + | Address | Unknown | + + + | Phone | Unavailable | + + + Care Team Providers + +------+ + | Care Senior Visual Designer Name | Role | Phone | + +------+ + PCP | Unavailable | + +------+ + Source Comments JAYDEN is fully live on both EpicCare Ambulatory and EpicCare InPatient.[facility] Allergies Not on File Medications Not on file Active Problems Not on file Encounters +--------+ + + + + | Date | Type | Specialty | Care Team | Description | +--------+ + + + + | 07/23/ | Documentati | Liver Transplant | Ashlyn Albarran | | | 2019 | on | | E, MD | | +--------+ + + + + | 07/22/ | Abstract | Liver Transplant | Ashlyn Albarran | | | 2019 | | | E, MD | | +--------+ + + + + | 07/19/ | Abstract | Liver Transplant | Ashlyn Albarran | | | 2019 | | | E, MD | | +--------+ + + + + from Last 3 Months Social History + +-------+ +--------+------+ | Tobacco [...] | + + Last Filed Vital Signs Not on file Plan of Treatment + + + + + | Health Maintenance | Due Date | Last Done | Comments | + + + + + | Pneumococcal | | | | | vaccination (1 of 2 | 1 | | | | - PCV13) | | | | + + + + + | Influenza (Flu) | | | | | vaccination (#1) | 9 | | | + + + + + Results Not on filefrom Last 3 Months"
--- OUTSIDE RECORDS SUMMARY | ~2019-09-28 | XMS | Encounter Summary ---
Demographics + + + | Address | [address] | | | [place] [address] | + + + | Home Phone | | + + + | Preferred Language | Unknown | + + + | Marital Status | Single | + + + | Oriental Orthodox Affiliation | 1041 | + + + | Race | Unknown | + + + | Ethnic Group | Unknown | + + + Author + + + | Author | [facility] | | | and [place] | + + + | Organization | [facility] | | | [...] Team Providers + +------+ + | Care Kitchen Worker Name | Role | Phone | [...] + + | 05/10/ | Office | [facility] | Gary Melendez, | Restrictive lung | | 2013 | Visit | PULMONARY [address] | MD [address] | disease (Primary | | | | [place], | [place], [place] | Dx); Hypoxemia; | | | | [place] [address] | [id number] | Kyphosis deformity | | | | [phone] | | of spine | +--------+---------+ + [...] techniques, exercise, and stress management. In some [facility], a lung transplant is an option. Your healthcare team may include: A primary care provider,such as your family doctor. A surgical assistant,a specialist in lung problems. A pulmonary nurse specialistwho helps you understand and carry out your treatment. A pulmonary rehabilitation specialistwho helps you gain strength through exercise. A social workerwho helps with your daily needs, family life, and stress. [phone] [employer]. [address] [place] [address]. All righ ts reserved. This information is [...] office if worsening pulmonary symptoms were to devrosalinda pugh. CC: Yovani Santana documented in this encounter Plan of Treatment +--------+---------+ + + + | Date | Type | Specialty | Care Team | Description | +--------+---------+ + + + | 10/24/ | Office | Cardiology | Yaquelin Alves DO | | | 2019 | Visit | | [address] | | | | | | [place] | | | | | | [id number] | | | | | | | | +--------+---------+ + + + documented as of this encounter Visit Diagnoses + + | Diagnosis | + + | Restrictive lung disease - Primary Other diseases of lung, not elsewhere classified | + + | Hypoxemia | + + | Kyphosis deformity of spine Kyphosis (acquired) (postural) | + + documented in this encounter
--- OUTSIDE RECORDS SUMMARY | ~2019-09-28 | XMS | Encounter Summary ---
Demographics + + + | Address | [address] | | | [place] [address] | + + + | Home Phone | | + + + | Preferred Language | Unknown | + + + | Marital Status | Unknown | + + + | Holiness Affiliation | Unknown | + + + | Race | Unknown | + + + | Ethnic Group | Unknown | + + + Author + + + | Author | [facility] | + + + | Organization | [facility] | + + + | Address | Unknown | + + + | Phone | Unavailable | + + + Care Team Providers + +------+ + | Care Balance Bridge Assembler Name | Role | Phone | + +------+ + PCP | Unavailable | + +------+ + Encounter Details +--------+ + + + + | Date | Type | Department | Care Team | Description | +--------+ + + + + | 07/19/ | Abstract | Clinical | Ashlyn Albarran | | | 2019 | | Transplant Services | MD Aric [address] | | | | | [address] | [facility] [place] | | | | | [place], | [address] | | | | | [place] [address] | [phone] | | | | | [phone] | | | +--------+ + + + [...] | + +--------+ + + + | LIVER TRANSPLANT | Routin | 03/09/2019 | | Results for this | | POST PANEL (EXT | e | 2:15 PM | | procedure are in the | | RESULTS) | | PDT | | results section. | + +--------+ + + + documented in this encounter Results LIVER TRANSPLANT POST PANEL (EXT RESULTS) (03/09/2019 2:15 PM PDT) + +---------+ + + + | Component | Value | Ref Range | Performed | Pathologist | | | | | At | Signature | + +---------+ + + + | SODIUM, | 138 | mmol/L | [facility] | | | (LAB) | | | | | + +---------+ + + + | POTASSIUM, | 4.4 | mmol/L | [facility] | | | (LAB) | | | | | + +---------+ + + + | CHLORIDE, | 97 | mmol/L | [facility] | | | (LAB) | | | | | + +---------+ + + + | TOTAL CO2, | 36 | mmol/L | [facility] | | | (LAB) | | | | | + +---------+ + + + | GLUCOSE, | 125 (A) | 65 - 110 mg/dL | [facility] | [facility] | | | (LAB) | | | | | + +---------+ + + + | BUN, PLASMA | 26 | mg/dL | [facility] | | | (LAB) | | | [facility] | | + +---------+ + + + | CREATININE | 1.30 | mg/dL | [facility] | | [facility] | | | (LAB) | | | | | + +---------+ + + + | CALCIUM, | 9.6 | mg/dL | [facility] | | | (LAB) | | | | | + +---------+ + + + | PHOSPHORUS, | pend | mg/dL | [facility] | | | (LAB) | | | | | + +---------+ + + + | MAGNESIUM,P | pend | mg/dL | [facility] | | + +---------+ + + + | TOTAL | 8.2 | g/dL | [facility] | | | PROTEIN, | | | [facility] | | | PLASMA | | | | | | (LAB) | | | | | + +---------+ + + + | ALBUMIN, | 3.7 | g/dL | [facility] | | | (LAB) | | | | | + +---------+ + + + | BILIRUBIN | 0.7 | Transcutaneous | [facility] | | | TOTAL | | Bilirubinometer | [facility]OSPITAL | | + +---------+ + + + | BILIRUBIN | pend | mg/dL | [facility] | | | DIRECT | | | [facility] | | + +---------+ + + + | ALK PHOS | 335 | U/L | [facility] | | | | | [facility] | | + +---------+ + + + | AST(SGOT) | 48 | U/L | [facility] | | | | | [facility] | | + +---------+ + + + | ALT (SGPT) | 38 | U/L | [facility] | | | | | [facility] | | + +---------+ + + + | URIC ACID, | pend | mg/dL | [facility] | [facility] | | | (LAB) | | | | | + +---------+ + + + | WHITE CELL | 9.3 | K/cu mm | [facility] | | | COUNT | | | [facility] | | + +---------+ + + + | HEMATOCRIT | 39.8 | % | [facility] | | | | | [facility] | | + +---------+ + + + | HEMOGLOBIN | 12.9 | 12.1998 - | [facility] | | | | | g/dL | [facility]OSPITAL | | + +---------+ + + + | PLATELET | 218 | K/cu mm | [facility] | | | COUNT | | | [facility] | | + +---------+ + + + | CYCLOSPORIN | 297.2 | ng/ml | [facility] | | | E, WHOLE | | | [facility]OS[facility]ITAL | | | BLOOD | | | | | + +---------+ + + + + + | Specimen | + + | Blood - Blood | | (substance) | + + + + + | Narrative | Performed At | + + + | | | + + + + +---------+ + + | Performing | Address | City/State/Zipcode | Phone Number | | Organization | | | | + +---------+ + + | [facility] | | | [phone] | | [facility] | | | | + +---------+ + + | [facility] | | [place], [place] | [phone] | | [facility]OSPITAL | | | | + +---------+ + + documented in this encounter Visit Diagnoses Not on filedocumented in this encounter"
--- OUTSIDE RECORDS SUMMARY | ~2019-09-28 | XMS | Encounter Summary ---
Demographics + + + | Address | [address] | | | [place] [address] | + + + | Home Phone | | + + + | Preferred Language | Unknown | + + + | Marital Status | Single | + + + | Mosque Affiliation | 1041 | + + + | Race | Unknown | + + + | Ethnic Group | Unknown | + + + Author + + + | Author | [facility] | | | and [place] | + + + | Organization | [facility] | | | [...] Team Providers + +------+ + | Care Manufacturing Business Analyst Name | Role | Phone | + +------+ + | Rick Osorio DO | PCP | | + +------+ + Encounter Details +--------+ + + + + | Date | Type | Department | Care Team | Description | +--------+ + + + + | 06/04/ | Orders Only | [facility] | Emil Oliva MD | | | 2013 | | NEPHROLOGY [place] | [address] | | | | | [address] | [address] [place], [place] | | | | | [address] [place], [place] | [address] | | | | | [address] | | | | | | [phone] | | | +--------+ + + + [...] 10/24/ | Office | Cardiology | Yaquelin AlvesDO | | | 2020 | Visit | | [address] | | | | | | [place] | | | | | | [address] | | | | | | | | +--------+---------+ + + + documented as of this encounter Procedures + +--------+ + + + | Procedure Name | Priori | Date/Time | Associated Diagnosis | Comments | | | ty | | | | + +--------+ + + + | EXTERNAL LAB: GREGG | Routin | 12/05/2013 | | Results [...] | + +-------+ + + + | Red Blood | 3.19 | 10 | EXTERNAL | | | Cells | | | LAB | | | Counted | | | | | + +-------+ + + + | Hemoglobin | 11.3 | g/dL | EXTERNAL | [...] | | | LAB | | | PRYDEINIG | | | | | + +-------+ [...] | + +-------+ + + + | Red Blood | 3.14 | 10 | EXTERNAL | | | Cells | | | LAB | | | Counted | | | | | + +-------+ + + + | Hemoglobin | 11.3 | g/dL | EXTERNAL | [...]
--- OUTSIDE RECORDS SUMMARY | ~2019-09-28 | XMS | Clinical Summary ---
Demographics + + + | Address | [address] | | | [place] [address] | + + + | Home Phone | | + + + | Preferred Language | Unknown | + + + | Marital Status | | + + + | Yazidism Affiliation | 1041 | + + + | Race | Unknown | + + + | Ethnic Group | Unknown | + + + Author + + + | Author | [facility] (Historical as of | | | 01-06-19) | + + + | Organization | [facility] [employer] (Historical as of | | | 01-06-19) [...] Team Providers + +------+ + | Care Sld Inclusion Teacher Name | Role | Phone | + [...] 02/12/2014 | | | (Season Ended) | 0 | | | + + + + [...] | MA - GENERIC | MA-GEN | [id number] | [employer] | | | | | [...] | | | | | | | [address] | + +--------+ +--------+ + +
--- OUTSIDE RECORDS SUMMARY | ~2019-09-28 | XMS | Encounter Summary ---
Demographics + + + | Address | [address] | | | [place] [address] | + + + | Home Phone | | + + + | Preferred Language | Unknown | + + + | Marital Status | Single | + + + | Episcopal Affiliation | 1041 | + + + | Race | Unknown | + + + | Ethnic Group | Unknown | + + + Author + + + | Author | [facility] | | | and [place] | + + + | Organization | [facility] | | | and [...] Team Providers + +------+ + | Care Soap Press Feeder Name | Role | Phone | + [...] Description | +--------+---------+ + + + | 03/26/ | Office | [facility] | Gary Melendez, | Hypoxemia (Primary | | 2014 | Visit | PULMONARY [address] | MD [address] | Dx); Kyphosis | | | | [place], | [place], [place] | deformity of spine; | | | | [place] [address] | [id number] | Restrictive lung | | | | [phone] | | disease | +--------+---------+ + + + Social History [...] + + + | Blood Pressure | 132/62 | 03/26/2014 2:25 PM | | | | | PST | | + + + + + | Pulse | 65 | 03/26/2014 2:25 PM | | | | | PST | | + + + + + | Temperature | - | - | | + + + + + | Respiratory Rate | - | - | | + + + + + | Oxygen Saturation | 96% | 03/26/2014 2:25 PM | On 2LPM | | | | PST | | + + + + + | Inhaled Oxygen | - | - | | | Concentration | | | | + + + + + | Weight | 99.2 kg (218 lb 12.8 | 03/26/2014 2:25 PM | | | | oz) | PST | | + + + + + | Height | 160 cm (5' 3") | 03/26/2014 2:25 PM | | | | | PST | | + + + + + | Body Mass Index | 38.76 | 03/26/2014 2:25 PM | | | | | PST | | + + + + + documented in this encounter Patient Instructions Patient Instructions Gary Melendez MD - 03/26/2014 2:49 PM PSTPlease increase oxygen to 4 LPM with significant exertion. documented in this encounter Progress Notes Gary Melendez MD - 03/26/2014 2:40 PM PSTFormatting of this note might be different f rom the original. Pulmonary Clinic Follow Up 03/26/2014 HPI Opal Petty is a 68 y.o. female patient of Yovani Santana M.D. here today for follow up of hypoxemia. It has been 3 weeks since our last clinic appointment. At their last visit, we established a plan to perform PFTs and exertional oximetry. Since the last visit she feels like their symptoms are stable. They have have not had any recent episodes of "bronchitis-like" symptoms. Currently Opal Petty is able to walk one block at their own pace on O2 at 3LPM and on level ground before developing symptoms. They are not exercising regularly. They ar e not enrolled in cardiac/pulmonary rehabilitation. This increase in the patient's suppleme ntal oxygen was needed primarily on symptoms noted by Opal over last 2-3 weeks She does not cough chronically, and does not produce mucous. They have not had hemoptysis since our last appointment. She has been evaluated for nocturnal oxygen and does qualify for use. They are currently on 2 LPM at night. They report oxygen use 24 hrs. per day. O2 at 3LPM with exertion and 2 LPM while sleeping. She does not had symptoms of heartburn or reflux. They have not had symptoms of nasal conge stion or post nasal drip. Past Medical History Past Medical History Diagnosis [...] Denies urticaria or allergic rashes. Objective BP 132/62 | Pulse 65 | Ht 1.6 m (5' 3") | Wt 99.247 kg (218 lb 12.8 oz) | BMI 38.77 kg/m2 | SpO2 96% Appearance: Alert, cooperative, no distress, appears stated age Head: Normocephalic, without obvious abnormality, atraumatic Eyes: PERRL, conjunctiva/corneas clear Nose: Nares normal, septum midline, mucosa normal, no drainage or sinus tenderness Throat: Lips, mucosa, and tongue normal; teeth/dentures normal Neck: Supple, symmetrical, no JVD Lungs: No accessory muscle use, breath sounds are clear to auscultation bilaterally, no w heezes, No crackles or rhonchi. No dullness to percussion. Chest Wall: No tenderness or deformity Heart: Regular rate and rhythm, S1, S2 normal, no murmur, rub or gallop Extremities: Extremities normal, atraumatic, no cyanosis, clubbing. Trace edema Skin: Warm and dry Lymph nodes: Cervical and supraclavicular nodes normal Neurologic: Gait normal Data: Chest x-ray(s) was done on 01/25/14. They were reviewed and interpreted in clinic today with the patient . They show an elevated right hemidiaphragm, cardiomegaly, increased AP diamete r with lordosis. Pulmonary function tests were performed on 03/26/14 and were reviewed and interpreted in cli denny today. They show a forced vital capacity of 1.13, 40% of predicted. The total lung cap acity is 2.10, 43% of predicted and the uncorrected DLCO is 7.8, 34% of predicted. Exertional oximetry patient's O2 saturation on room air was 85% oxygen at 4 L per minute wa s required to maintain O2 saturation in the low 90s. Echo report from 02/15/14 shows a normal LVEF with normal right and left ventricular dimensi ons. A systolic pulmonary artery pressure was estimated at 36-41 mmHg. Assessment 1. Hypoxemia-multifactorial etiology seems most likely. Today's pulmonary function tests show severe restrictive changes. 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 Thus there is question as to whether part of her restrictive lung disease secondary to her paralyzed hemidiaphragm. The patient's most recent echocardiogram suggests borderline pulmonary hypertension. My overall suspicion of underlying interstitial lung disease is not high. Plan 1. Increase supplemental oxygen to 4 L per minute with exertion. 2. Nocturnal oximetry assessment on 2 L per minute while sleeping. 3. Supine and upright fluoroscopy the diaphragms. 4. Pulmonary clinic linic followup appointment to review the above noted studies in the ne xt 1-2 weeks. CC: Yovani Santana documented in this encounter [...] TORREZ | | | | | | [id number] | | | | | | | | +--------+---------+ + + + + + +--------+ + + | Name | Type | Priori | Associated Diagnoses | Order Schedule | | | | ty | | | + + +--------+ + + | Overnight oximetry, | Respiratory | Routin | Kyphosis deformity | Expected: | | oxygen | Care | e | of spine | 03/26/2014, Expires: | | | | | Restrictive lung | 03/26/2015 | | | | | disease | | + + +--------+ + + documented as of this encounter Results FL Sniff Test (05/10/2014 [...] + | MISCELLANEOUS LAB | | | [phone] | + +---------+ + + | MISCELANIOUS LAB | | | [phone] | + +---------+ + + documented in this encounter Visit Diagnoses + + | Diagnosis | + + | Hypoxemia - Primary | + + | 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
--- OUTSIDE RECORDS SUMMARY | ~2019-09-28 | XMS | Encounter Summary ---
Demographics + + + | Address | [address] | | | [place] [address] | + + + | Home Phone | | + + + | Preferred Language | Unknown | + + + | Marital Status | Unknown | + + + | Jain Affiliation | Unknown | + + + | Race | Unknown | + + + | Ethnic Group | Unknown | + + + Author + + + | Author | [facility] | + + + | Organization | [facility] | + + + | Address | Unknown | + + + | Phone | Unavailable | + + + Care Team Providers + +------+ + | Care Gas Operations Analyst Name | Role | Phone | [...] | | [address] | [facility] [place] | | | | | [place], | [address] | | | | | [place] [address] | [phone] | | | | | [phone] | | | +--------+ + + + [...]
--- OUTSIDE RECORDS SUMMARY | ~2019-09-28 | XMS | Clinical Summary ---
Demographics + + + | Address | [address] | | | [place] [address] | + + + | Home Phone | | + + + | Preferred Language | Unknown | + + + | Marital Status | | + + + | Oriental Orthodox Affiliation | 1041 | + + + | Race | Unknown | + + + | Ethnic Group | Unknown | + + + Author + + + | Author | [facility] (Historical as of | | | 01-06-19) | + + + | Organization | [facility] (Historical as of | | | 01-06-19) [...] Team Providers + +------+ + | Care Police Specialist Name | Role | Phone | [...] | MA - GENERIC | MA-GEN | [id number] | Medica | | | | | [...] | | | | | | | [address] | + +--------+ +--------+ + +
--- OUTSIDE RECORDS SUMMARY | ~2019-09-28 | XMS | Encounter Summary ---
Demographics + + + | Address | [address] | | | [place] [address] | + + + | Home Phone | | + + + | Preferred Language | Unknown | + + + | Marital Status | Single | + + + | Anglican Affiliation | 1041 | + + + | Race | Unknown | + + + | Ethnic Group | Unknown | + + + Author + + + | Author | [facility] | | | and [place] | + + + | Organization | [facility] | | | and [...] Team Providers + +------+ + | Care Investigation Officer Name | Role | Phone | + +------+ + | Yovani Santana MD | PCP | | + +------+ + Encounter Details +--------+ + + + + | Date | Type | Department | Care Team | Description | +--------+ + + + + | 03/26/ | Hospital | [facility] | Melendez, Gary, | Hypoxemia; Kyphosis | | 2014 | Encounter | MED CTR PULMONARY | MD [address] | deformity of spine | | | | FUNCTION [address] | [place], [place] | | | | | [place], | [address] | | | | | [place] [address] | | | | | | [phone] | | | +--------+ + + + [...] + +---------+--------+ + | gabapentin | Take 400 mg by mouth | | 0 | | | | (NEURONTIN) 400 mg | 2 times daily. | | | | | | capsule | | | | | | + + + +---------+--------+ + | levothyroxine | Take by mouth every | | 0 | | | | (SYNTHROID) 88 mcg | morning (before | | | | | | tablet | breakfast). | | | | | [...] mg | Daily. | | | | 0 | | tablet | | | | | | + + + +---------+--------+ + | fluticasone | 1 spray by Nasal | | 0 | | | | (FLONASE) 50 | route Daily. | | | | 0 | | mcg/nasal spray | | | | | | + + + +---------+--------+ + | furosemide (LASIX) | Take 20 mg by mouth | | 0 | | | | 20 mg tablet | Daily. | | | | 0 | + + + +---------+--------+ + | | Take 1 tablet by | | 0 | | | | HYDROcodone-acetamin | mouth every 6 hours | | | | 0 | | ophen (NORCO) 5-325 | as needed. | | | | | | mg per tablet | | | | | | + + + +---------+--------+ + | methadone 10 mg | Take 10 mg by mouth | | 0 | | | | tablet | 2 times daily. | | | | 0 | + + + +---------+--------+ + | metoprolol | Take 100 mg by mouth | | 0 | | | | tartrate (LOPRESSOR) | 2 times daily. | | | | 0 | | 50 mg tablet | | | | | | + + + +---------+--------+ + documented as of this encounter Plan of Treatment +--------+---------+ + + + | Date | Type | Specialty | Care Team | Description | +--------+---------+ + + + | 10/24/ | Office | Cardiology | Yaquelin Alves DO | | | 2020 | Visit | | [address] | | | | | | [facility] | | | | | | [address] | | | | | | | [...] MD 03/27/2014 13:24 | | | [facility] | | + + + + [...] 03/26/14Electronically signed by: Gary Melendez MD [facility] | | | |No prior pulmonary function tests available for comparison. 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
--- OUTSIDE RECORDS SUMMARY | ~2019-09-28 | XMS | Encounter Summary ---
Demographics + + + | Address | [address] | | | [place] [address] | + + + | Home Phone | | + + + | Preferred Language | Unknown | + + + | Marital Status | Unknown | + + + | Yazdanism Affiliation | Unknown | + + + | Race | Unknown | + + + | Ethnic Group | Unknown | + + + Author + + + | Author | [facility] | + + + | Organization | [facility] | + + + | Address | Unknown | + + + | Phone | Unavailable | + + + Care Team Providers + +------+ + | Care Carbon Capture Power Plant Manager Name | Role | Phone | [...] | | | | | [place], | [place], [place] | | | | | [place] [address] | [address] | | | | | [phone] | | | +--------+ + + + [...]
--- OUTSIDE RECORDS SUMMARY | ~2019-09-28 | XMS | Encounter Summary ---
Demographics + + + | Address | [address] | | | [place] [address] | + + + | Home Phone | | + + + | Preferred Language | Unknown | + + + | Marital Status | Single | + + + | Cheondoism Affiliation | 1041 | + + + | Race | Unknown | + + + | Ethnic Group | Unknown | + + + Author + + + | Author | [facility] | | | and [place] | + + + | Organization | [facility] | | | and [...] Team Providers + +------+ + | Care Peoplesoft Name | Role | Phone | + +------+ + | Yovani Santana MD | PCP | | + +------+ + Encounter Details +--------+ + + + + | Date | Type | Department | Care Team | Description | +--------+ + + + + | 01/14/ | Hospital | [facility] | Jennifer Hartman MD | Near syncope; | | 2015 - | Encounter | [facility] | [address] | Elevated troponin; | | | | CARE FLOOR [address] | [place] [address] | Non-STEMI (non-ST | | 01/19/ | | [address] | [phone] | elevated myocardial | | 2015 | | [place], [place] | | infarction) ([facility]); | | | | [address] | | CKD (chronic kidney | | | | [phone] | | disease), | | | | | | unspecified stage; | | | | | | Leukocytosis; ZULAY | | | | | | (acute kidney | | | | | | injury) ([facility]); Liver | | | | | | replaced by | | | | | | transplant ([facility]) | +--------+ + + + + Social [...] Date of Service: 01/19/15 0753 Status: Signed Inside Trucker: Emma Hardy MD (Physician) Related Notes: Original [...] history of chronic pain, on chronic methadone, management manager denny kidney disease, stage III, presented with generalized weakness, acute renal failure, and elevate troponin. The patient was taken off methadone about 3 weeks prior to admission. Pre vious creatinine was 1.38 and the patient was presented at [facility] in [place] , was found to have elevated troponin of 0.55 and noted to have creatinine of 2.4 and leukoc ytosis and was transferred for crp-EU-azrztqnsn SC. HOSPITAL COURSE The patient was admitted with rxc-BA-lnfbenlwv SC. Cardiology consult was obtained. She was [...] lipid-lowerin g therapy. The patient also has xnsmr-tz-trvvnmt kidney disease, stage III. Acute renal fail [...] to have severe protein calorie malnutrition and shorts sifter was consulted. Her blood pressures remain stable. 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 You may get the following medications from [...] summary. This entry has been created using [employer] Speech Recognition software and [employer]. The entry has been reviewed and there [...] (none) Author Type: Registered Nurse Filed: 01/19/15 9308 Date of Service: 01/19/15 1300 Status: Signed Inside Trucker: Shaista Lin RN (Registered Nurse) Pt discharged via wheel chair on 2 L of oxygen. To [facility] in [place]. Pt alert and o rientedX4. onver aelssandro Transaction, Provider Unknown - 01/19/2015 8:20 AM PDT Case Management by PHUONG Roman at 01/19/15819 Author: PHUONG Roman Service: (none) Author Type: Registered Nurse Cardiovascular Icu Filed: 01/19/15819 Date of Service: 01/19/15819 Status: Signed Inside Trucker: PHUONG Roman (Registered Nurse Cardiovascular Icu) Disposition: [facility] Transportation: facility van All orders, signed [...] 01/19/15624 Date of Service: 01/19/15412 Status: Signed Inside Trucker: Yady Singh RN (Registered Nurse) Patient resting quietly all night. Medicated once for all over general pain. No further com plaints. VSS. onver alessandro Transaction, Provider Unknown - 01/18/2015 3:21 PM PDT Case Management by PHUONG Roman at 01/18/151520 Author: PHUONG Roman Service: (none) Author Type: Registered Nurse Cardiovascular Icu Filed: 01/18/151520 Date of Service: 01/18/151520 Status: Signed Inside Trucker: PHUONG Roman (Registered Nurse Cardiovascular Icu) spoke w/ Will at [facility] who reports they can accept and transport pt tomorrow AM. PHUONG Roman osangela Kirk MD - 01/18/2015 3:10 PM PDT Progress Notes by Rosangela Steinberg MD at 01/18/15 151 Author: Rosangela Steinberg MD Service: Infectious Disease Author Type: Physician Filed: 01/18/15 7931 Date of Service: 01/18/151509 Status: Signed Inside Trucker: Rosangela Steinberg MD (Physician) [facility] [...] vomiting and diarrhea. Had initially presented to [facility] in [place] with similar complaints. Was foun d to have an elevated troponin. She was mainly admitted as a non-STEMI. Found to have a leuk ocytosis. Since patient is immunocompromised, she was started empirically on IV ceftriaxone. Chest x-ray showed no infiltrate. Patient denies any recent fevers or chills. She went to [facility] mainly becau se of syncope. [...] extraluminal fluid collection abdomen pelvis without contrast [[id number]] Impression 1. Hypoinflated chest, but no evident infiltrate chest 1 view [[id number]] Impression 1. Indication for study and thus [...] 1445 Date of Service: 01/18/1549 Status: Signed Inside Trucker: Emma Hardy MD (Physician) [facility] Service: Hospitalist Progress Note Hospital Day: LOS: 4 days SUBJECTIVE Patient Summary: 69-year-old female with history of liver transplant secondary to [facility] biliary cirrhosis on immunosuppression, chronic pain, [...] schrader 8. Deconditioning Continue physical therapy and snf facility placement versus home PT 9. Chronic [...] AM This entry has been created using [employer] Speech Recognition software and [employer]. The entry has been reviewed and there may still exist sound alike word errors. onversion Trans action, Provider Unknown - 01/18/2015 5:16 AM PDT Nurse Progress Note by Yady Singh RN at 01/18/15 05 Author: Yady Singh RN Service: (none) Author Type: Registered Nurse Filed: 01/18/152104 Date of Service: 01/18/15515 Status: Signed Inside Trucker: Yady Singh RN (Registered Nurse) Pt taken [...] Date of Service: 01/17/15 1629 Status: Signed Inside Trucker: Jose Maria Espinal MD (Physician) Related Notes: Original Note by Jose Maria Espinal MD (Physician) filed at 01/17/152012 [facility] Service: Hospitalist Progress Note Pt: Cole Ernst AGE/SEX: 69 y.o. female : 1945 ROOM: [address] [place] [address] History of Present Illness: " The patient [...] who called EMS. Patient was taken to [facility] in [place]. Susie ent was noted to have a [...] Patient had borderline blood pressure. While at [facility] with systolic in the low 90s. [...] CT done several days ago while in [place]. She also stat es that her vomiting and diarrhea have significantly improved. She denies any fevers, hemat emesis, melena, bright red blood per rectum, hematuria, dysuria, she denies any leg pain or swelling. No palpitations. She states she does have a history of "kidney disease" and was told that it was secondary to cyclosporine. However, she is not seen kidney specialist [facility] her liver transplant.".....per admitting MD/Dr. Hartman. [...] as n oted. I urged the staff physical therapist to introduce a hat so that sample [...] contrast. Prior study for comparison: None FINDINGS: Line Service Attendant 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 deg enerative changes of [...] LA/Ao: 1.57 D-E Excursion: 2.11 cm E-F Morrill: 0.09 m/s EPSS: 0.48 cm HR: 77.41 [...] TV A Billy: 0.66 m/s TV Dec Morrill: 4.36 m/s2 TV Dec Time: 184.41 ms TV E Billy: 0.80 m/s TV E/A Rat io: 1.21 Pilot Fuel Engineer: NEDRA Authenticated by: Gil Coronel MD [...] nutritional supplements as recommend ed by nutrition service/shorts sifter. Jose Maria Espinal MD 01/17/2015 4:29 PM onversion Transa ction, Provider Unknown - 01/17/2015 3:15 PM PDT Case Management by PHUONG Sandhu at 01/17/15 1515 Author: PHUONG Sandhu Service: (none) Author Type: Milieu Therapist Filed: 01/17/15 4328 Date of Service: 01/17/155 Status: Signed Inside Trucker: PHUONG Sandhu (Milieu Therapist) 01/17/15 1500 Discharge Planning Evaluation Admitting Diagnosis Near syncope, elevated tropinin, non-stemi, CKD Anticipated Disposition Facility Type correction facility Medicare Important Message (MERED[facility]) Given Residential Facility Other (comment) ([facility]) AIRCRAFT LIFE SUPPORT FITTER met with Pt for discharge planning, on board with going to [facility] when medically ready. AIRCRAFT LIFE SUPPORT FITTER p/c to [facility] - will accept Pt when medically ready. [facility] (73 miles) [address] [facility], [place] Filler Shredder Machine: Will DCP: [facility] Transportation: [facility] Facility Van - Filler Shredder Machine: Will Medicare important message signed and copy in chart LUIS FOUNTAIN, Registered Nurse Cardiovascular Icu [phone] cell osangela Kirk MD - 01/17/2015 1:11 PM PDT Progress Notes by Rosangela Steinberg MD at 01/17/15 1311 Author: Rosangela Steinberg MD Service: Infectious Disease Author Type: Physician Filed: 01/17/15 5781 Date of Service: 01/17/15 1311 Status: Signed Inside Trucker: Rosangela Steinberg MD (Physician) [facility] [...] vomiting and diarrhea. Had initially presented to [facility] in [place] with similar complaints. Was foun d to have an elevated troponin. She was mainly admitted as a non-STEMI. Found to have a leuk ocytosis. Since patient is immunocompromised, she was started empirically on IV ceftriaxone. Chest x-ray showed no infiltrate. Patient denies any recent fevers or chills. She went to [facility] mainly becau se of syncope. [...] extraluminal fluid collection abdomen pelvis without contrast [[id number]] Impression 1. Hypoinflated chest, but no evident infiltrate chest 1 view [[id number]] Impression 1. Indication for study and thus [...] 01/16/152137 Date of Service: 01/16/152127 Status: Signed Inside Trucker: Juju Riggins MD (Physician) [facility] [...] Author: PHUONG Sandhu Service: (none) Author Type: Milieu Therapist Filed: 01/16/156 Date of Service: 01/16/151642 Status: Signed Inside Trucker: PHUONG Sandhu (Milieu Therapist) 01/16/15 1600 Discharge Planning Evaluation Admitting Diagnosis Near syncope, elevated tropinin, non-stemi, CKD Anticipated Disposition Facility Type correction facility Residential Facility Other (comment) ([facility]) PHUONG received p/c from Will, admissions at [facility], states they are willi ng to accept Pt to their Residential Facility, states their house physician will not pre scribe Methadone. Will states she will start authorization process with [employer] who is Managing the Medicare benefits. Will states the first 20 days are covered at 100% then day 21 will be $100.00 a day. DCP: [facility] or [facility] LUIS FOUNTAIN,Registered Nurse Cardiovascular Icu [phone] cell Jose Maria Grimes MD - 01/16/2015 11:29 AM PDTFormatting of this note might be different from armando tellez original. Progress Notes by Jose Maria Espinal MD at 01/16/15 1129 Author: Jose Maria Espinal MD Service: Hospitalist Author Type: Physician Filed: 01/17/15 1149 Date of Service: 01/16/15 112 Status: Signed Inside Trucker: Jose Maria Espinal MD (Physician) Related Notes: Original Note by Jose Maria Espinal MD (Physician) filed at 01/16/15 1137 [facility] Service: Hospitalist Progress Note Pt: Cole Ernst AGE/SEX: 69 y.o. female : 1945 ROOM: [address] [place] [address] History of Present Illness: " The patient [...] who called EMS. Patient was taken to [facility] in [place]. Susie ent was noted to have a [...] Patient had borderline blood pressure. While at [facility] with systolic in the low 90s. [...] CT done several days ago while in [place]. She also stat es that her vomiting and diarrhea have significantly improved. She denies any fevers, hemat emesis, melena, bright red blood per rectum, hematuria, dysuria, she denies any leg pain or swelling. No palpitations. She states she does have a history of "kidney disease" and was told that it was secondary to cyclosporine. However, she is not seen kidney specialist [facility] her liver transplant.".....per admitting MD/Dr. Hartman. [...] as n oted. I urged the staff physical therapist to introduce a hat so that sample [...] contrast. Prior study for comparison: None FINDINGS: Line Service Attendant 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 deg enerative changes of [...] LA/Ao: 1.57 D-E Excursion: 2.11 cm E-F Morrill: 0.09 m/s EPSS: 0.48 cm HR: 77.41 [...] TV A Billy: 0.66 m/s TV Dec Morrill: 4.36 m/s2 TV Dec Time: 184.41 ms TV E Billy: 0.80 m/s TV E/A Rat io: 1.21 Pilot Fuel Engineer: NEDRA Authenticated by: Gil Coronel MD [...] pressure has been showing increasing trend since ga toprolol has been held on admission due [...] Date of Service: 01/16/15 1102 Status: Signed Inside Trucker: Natalio Benito PT (Physical Therapist) 01/16/15 1102 PT Last Visit PT Received On 01/16/15 Reason for Treatment Deconditioning;Other (comment) (NSTEMI; Syncope) Requires PT Follow Up Awaiting tx order Follow up PT Only? No PT Eval/Reassessment Date 01/16/15 Assistance Required 1 person Manager Application Needed No Home Environment Type of Home Apartment ground level Home Exterior Layout Entry steps none Home Interior Layout Lives on main level with bedroom/bathroom Bathroom Shower/Tub Tub/shower unit Bathroom Toilet Standard Bathroom Equipment Shower stool;Grab bars in shower/bath;Grab bars outside of shower/bath Bathroom Accessibility Other (Comment) (Small bathroom) Home Equipment Walker 4 wheeled;Cane single point Prior Function Level of [place] Modified independent with functional mobility;Modified independent wi [...] in recliner w/ call light and COMPUTER SYSTEM VALIDATION SPECIALIST present) Restraints Initially in Place No [...] Eval/Reassessment Date 01/16/15 Assistance Required 1 person Manager Application Needed No Precautions Other Precautions Fall Risk [...] Patient in the recli ner w/ COMPUTER SYSTEM VALIDATION SPECIALIST present at end of session, no [...] in recliner w/ call light and COMPUTER SYSTEM VALIDATION SPECIALIST present) Restraints Initially in Place No [...] Notes by Nupur Tadeo MD at 01/16/15 3441 Author: Nupur Tadeo MD Service: Infectious Disease Author Type: Physician Filed: 01/16/15 1257 Date of Service: 01/16/15 1045 Status: Signed Inside Trucker: Nupur Tadeo MD (Physician) [facility] [...] initially presented to [facility] in [place] with similar complaints. Was found to have an elevated troponin . She was mainly admitted as a non-STEMI. Found to have a leukocytosis. Since patient is imm unocompromised, she was started empirically on IV ceftriaxone. Chest x-ray showed no infiltrate. Patient denies any recent fevers or chills. She went to [facility] mainly becau se of syncope. [...] Author: PHUONG Sandhu Service: (none) Author Type: Milieu Therapist Filed: 01/16/15 1042 Date of Service: 01/16/15 1030 Status: Signed Inside Trucker: PHUONG Sandhu (Milieu Therapist) 01/16/15 1000 Discharge Planning Evaluation Admitting Diagnosis Near syncope, elevated tropinin, non-stemi, CKD Anticipated Disposition Facility Type correction facility AIRCRAFT LIFE SUPPORT FITTER met with Pt and discussed discharge planning, states she has concerns returning home at this time, as Pt resides alone. AIRCRAFT LIFE SUPPORT FITTER discussed rehab options, SNF vs Home Health vs Outpatient PT. Pt states her sister (Annie Tipton [phone] cell) assists with IADLs as Pt does not dri ve. Pt states she resides alone and has been doing ADLs on her own. Pt states she uses a 4WW with seat at home, then uses a cane when out of the home, stated, "I am a little vain" abou t using the 4WW in public. Pt is interested in [facility] [place], due to close proximity to her home. AIRCRAFT LIFE SUPPORT FITTER faxe d SNF referral. Pt is a [...] need SNF Anticipated DCP: Pending placement at [facility] [place] LUIS FOUNTAIN, Registered Nurse Cardiovascular Icu [phone] cell Luisito Mejía - 01/16/2015 9:12 AM PDTFormatting of this note might be different from the or iginal. Progress Notes by Luisito Thomas MD at 01/16/1512 Author: Luisito Thomas MD Service: Nephrology Author Type: Physician Filed: 01/20/15 190 Date of Service: 01/16/15911 Status: Signed Inside Trucker: Luisito Thomas MD (Physician) [facility] Service: NEPHROLOGY PROGRESS Note Cole Ernst 69 y.o. [phone] 4445/[id number] female [facility] Hospital Day: LOS: 2 days The patient is a 69 y.o. 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 High CIWA this shift =4. Patient c/o generalized pain, treated with PRN [place] per orders. Patient observed to be sle eping, following PRN medication and repositioning. Patient continues to be NSR-ST on tele. Vitals stable. Will continue to monitor patient. Jose Maria Grimes MD - 01/15/2015 3:19 PM PDTFormatting of this note might be different from armando tellez original. Progress Notes by Jose Maria Espinal MD at 01/15/15 272 Author: Jose Maria Espinal MD Service: Hospitalist Author Type: Physician Filed: 01/16/1553 Date of Service: 01/15/151518 Status: Signed Inside Trucker: Jose Maria Espinal MD (Physician) Related Notes: Original Note by Jose Maria Espinal MD (Physician) filed at 01/15/151939 [facility] Service: Hospitalist Progress Note Pt: Cole Ernst AGE/SEX: 69 y.o. female : 1945 ROOM: [address] [place] [address] History of Present Illness: " The patient [...] who called EMS. Patient was taken to [facility] in [place]. Susie ent was noted to have a [...] Patient had borderline blood pressure. While at [facility] with systolic in the low 90s. [...] CT done several days ago while in [place]. She also stat es that her vomiting and diarrhea have significantly improved. She denies any fevers, hemat emesis, melena, bright red blood per rectum, hematuria, dysuria, she denies any leg pain or swelling. No palpitations. She states she does have a history of "kidney disease" and was told that it was secondary to cyclosporine. However, she is not seen kidney specialist [facility] liver [facility].".....per admitting MD/Dr. Hartman. [...] contrast. Prior study for comparison: None FINDINGS: Line Service Attendant 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 deg enerative changes of [...] LA/Ao: 1.57 D-E Excursion: 2.11 cm E-F Morrill: 0.09 m/s EPSS: 0.48 cm HR: 77.41 [...] TV A Billy: 0.66 m/s TV Dec Morrill: 4.36 m/s2 TV Dec Time: 184.41 ms TV E Billy: 0.80 m/s TV E/A Rat io: 1.21 Pilot Fuel Engineer: NEDRA Authenticated by: Gil Coronel MD [...] Notes by Ronda Michaels RD at 01/15/15 143 Author: Ronda Michaels RD Service: (none) Author Type: Registered Dietitian Filed: 01/15/15 0498 Date of Service: 01/15/151429 Status: Signed Inside Trucker: Ronda Michaels RD (Registered Dietitian) 01/15/15 3920 Subjective Timepoint Admit Pt c/o In to [...] Estimated Energy Needs Total Energy Estimated Needs 5155-1711 kcal Method for Estimating Needs 25-30 kcal/kg [...] Date of Service: 01/15/15 1043 Status: Signed Inside Trucker: Luisito Thomas MD (Physician) [facility] Service: NEPHROLOGY PROGRESS Note Cole Ernst 69 y.o. [id number] 4445/4445-1 female [facility] Day: LOS: 1 day The patient is a 69 y.o. 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 See ED Record for Physician Inter pretation. 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 REPLACE TO KEEP P GREATER THAN 2.5 REPEAT P LEVEL IN AM Lab Results Component Value Date PHOS 1.5* 01/15/2015 PHOS 1.4* 01/14/2015 Abdominal pain / LEUCOCYTOSIS PER HOSPITALIST CT SCAN WITH ORAL CONTRAST DONE Possible UTI pyuria on her urinalysis from [facility] on ceftriaxone CASE DISCUSSED IN DETAIL WITH PATIENT/ Care team / HOSPITALIST, ANSWERS ALL QUESTIONS IN D ETAIL, VERBALIZES UNDERSTANDING LUISITO THOMAS MD 01/15/2015 KI DE JESUS onversion Transactio n, Provider Unknown - 01/14/2015 11:16 PM PDT Nurse Progress Note by Giovanna Bejarano RN at 01/14/158 Author: Giovanna Bejarano RN Service: (none) Author Type: Registered Nurse Filed: 01/14/158 Date of Service: 08/25/15 2316 Status: Signed Inside Trucker: Giovanna Bejarano, RN (Registered Nurse) Called Dr. [...] 01/14/152226 Date of Service: 01/14/152226 Status: Signed Inside Trucker: Jazz Rahman RPH (Pharmacist) Clinical Pharmacy Note - Renal Dose Adjustment Cole Ernst 69 y.o. female Ht Readings from Last 1 Encounters: 01/14/15 1.6 m (5' 3") Wt Readings from Last 1 Encounters: 01/14/15 89.6 kg (197 lb 8.5 oz) CREATININE Date Value Ref Range Status 01/14/2015 2.4* 0.50 - 1.00 mg/dL Final Comment: Testing performed at [facility];[address] [place] [address];[place] [address] CREATININE: 2.4 mg/dL ABNORMAL (01/14/15 1548) Estimated [...] Case Management by PHUONG Crump LICSW at 01/14/153 Author: PHUONG Crump, VINAY Service: (none) Author Type: Registered Nurse Cardiovascular Icu Filed: 01/14/151734 Date of Service: 01/14/151733 Status: Signed Inside Trucker: PHUONG Crump, CHEMISTRY QUALITY CONTROL TECHNICIAN (Registered Nurse Cardiovascular Icu) 01/14/15 9361 Discharge Planning Evaluation Admitting Diagnosis Near syncope, elevated tropinin, non-stemi, CKD Readmission No Living Arrangements Alone Support Systems Family members;Friends/neighbors Type of Residence Private residence House type Apartment Bathrooms on 1st Floor 1-Full Independent with ADL's Yes Independent with Mobility No-comment Home Care Services No Mental Status Oriented Power of Manager Steel No;Other (comment) Resources Transportation issues No Prescription Plan Yes Name of Pharmacy [facility] in [place], [place] Previous home health equipment Yes Anticipated Disposition Facility Type Home Met with patient and discussed discharge planning, Pt is a 69 y.o., female who reports dru giron alone. Patient reports her sister, Annie Tipton, will transport her home a t discharge. Patient's PCP is: KI DE JESUS (General) Patient's insurance:b [employer] Health Plan & Medicare Coverage concerns: Medication coverage/concerns: [place] [facility] Delivery: Community resources utilized / needed: [...] T[place]Z | | | | | | [id number] | | | | | | | [...] preparation was | | | performed by [facility], [facility], [facility] | | | [place] [address] (Wire Wheeler: Martin | | | Zhagn Galvan; [facility]#: [id number]). Diagnostician: Martin Potter | Pathologist Electronically Signed [...] | | | | | [place] [address] | | | | + + + [...] EXTERNAL | | | | performed at [facility], [address] | | LAB | | | | [address], | | | | | | [place] [address] | | | | + + + [...] | | | | | [place] [address] | | | | + + + + + + | K | 3.4 (L)Comment: Testing | 3.5 - 4.9 | EXTERNAL | | | | performed at [facility], [address] | mmol/L | LAB | | | | [address], | | | | | | [place] [address] | | | | + + + + + + | Cl | 101Comment: Testing | 99 - 109 mmol/L | EXTERNAL | | | | performed at [facility], [address] | | LAB | | | | [address], | | | | | | [place] [address] | | | | + + + + + + | CO2 | 28Comment: Testing | 23 - 32 mmol/L | EXTERNAL | | | | performed at [facility], [address] | | LAB | | | | [address], | | | | | | [place] [address] | | | | + + + + + + | Anion Gap | 10Comment: Testing | 5 - 20 mmol/L | EXTERNAL | | | | performed at [facility], [address] | | LAB | | | | [address], | | | | | | [place] [address] | | | | + + + + + + | Glucose, | 107 (H)Comment: Testing | 65 - 99 mg/dL | EXTERNAL | | | Fasting | performed at [facility], [address] | | LAB | | | | [address], | | | | | | [place] [address] | | | | + + + + + + | BUN | 8Comment: Testing | 8 - 25 mg/dL | EXTERNAL | | | | performed at [facility], [address] | | LAB | | | | [address], | | | | | | [place] [address] | | | | + + + + + + | Creatinine | 0.96Comment: Testing | 0.50 - 1.00 | EXTERNAL | | | | performed at [facility], [address] | mg/dL | LAB | | | | [address], | | | | | | [place] [address] | | | | + + + + + + | BUN/Creatin | 8Comment: Testing | | EXTERNAL | | | ine Ratio | performed at [facility], [address] | | LAB | | | | [address], | | | | | | [place] [address] | | | | + + + + + + | Calcium | 8.6Comment: Testing | 8.5 - 10.5 | EXTERNAL | | | | performed at [facility], [address] | mg/dL | LAB | | | | [facility], | | | | | | [place] [address] | | | | + + + [...] | | | | | | at [facility], [address] | | | | | | [facility], | | | | | | [place] [address] | | | | + + + [...] + + + | COLE ERNST 1945 OR MYOCARDIAL PERFUSION SPECT - STRESS | | [...] EXTERNAL | | | | performed at [facility], [address] | K/uL | LAB | | | | [address], | | | | | | [place] [address] | | | | + + + + + + | Red Blood | 3.41 (L)Comment: Testing | 3.70 - 5.10 | EXTERNAL | | | Cells | performed at [facility], [address] | M/uL | LAB | | | Counted | [address], | | | | | | [place] [address] | | | | + + + + + + | Hemoglobin | 11.9Comment: Testing | 11.3 - 15.5 | EXTERNAL | | | | performed at [facility], [address] | g/dL | LAB | | | | [address], | | | | | | [place] [address] | | | | + + + + + + | Hematocrit, | 35.7Comment: Testing | 34.0 - 46.0 % | EXTERNAL | | | POC | performed at [facility], [address] | | LAB | | | | [address], | | | | | | [place] [address] | | | | + + + + + + | MCV | 104.6 (H)Comment: | 80.0 - 100.0 fl | EXTERNAL | | | | Testing performed at | | LAB | | | | [facility], [address] | | | | | | [place] | | | | | | [address] | | | | + + + + + + | MCH | 34.9 (H)Comment: Testing | 27.0 - 34.0 pg | EXTERNAL | | | | performed at [facility], [address] | | LAB | | | | [address], | | | | | | [place] [address] | | | | + + + + + + | MCHC | 33.3Comment: Testing | 32.0 - 35.5 | EXTERNAL | | | | performed at [facility], [address] | g/dL | LAB | | | | [address], | | | | | | [place] [address] | | | | + + + + + + | RDW-CV | 50.8Comment: Testing | 37 - 53 fl | EXTERNAL | | | | performed at [facility], [address] | | LAB | | | | [address], | | | | | | [place] [address] | | | | + + + [...] | | | | | [place] [address] | | | | + + + + + + | MPV | 12.6Comment: Testing | fl | EXTERNAL | | | | performed at [facility], [address] | | LAB | | | | [address], | | | | | | [place] [address] | | | | + + + + + + | Differentia | AUTOMATEDComment: | | EXTERNAL | | | l Type | Testing performed at | | LAB | | | | [facility], [address] | | | | | | [place] | | | | | | [address] | | | | + + + + + + | % Segmented | 40.31Comment: Testing | % | EXTERNAL | | | | performed at [facility], [address] | | LAB | | | Neutrophils | [address], | | | | | | [place] [address] | | | | + + + + + + | % | 39.78Comment: Testing | % | EXTERNAL | | | Lymphocytes | performed at [facility], [address] | | LAB | | | | [address], | | | | | | [place] [address] | | | | + + + + + + | % Monocytes | 12.51Comment: Testing | % | EXTERNAL | | | | performed at [facility], [address] | | LAB | | | | [address], | | | | | | [place] [address] | | | | + + + + + + | % | 6.45Comment: Testing | % | EXTERNAL | | | Eosinophils | performed at [facility], [address] | | LAB | | | | [address], | | | | | | [place] [address] | | | | + + + + + + | % Basophils | 0.95Comment: Testing | % | EXTERNAL | | | | performed at [facility], [address] | | LAB | | | | [address], | | | | | | [place] [address] | | | | + + + + + + | Absolute | 3.26Comment: Testing | 1.90 - 7.40 | EXTERNAL | | | Segmented | performed at [facility], [address] | K/uL | LAB | | | Neutrophils | [address], | | | | | | [place] [address] | | | | + + + + + + | Absolute | 3.21Comment: Testing | 1.00 - 3.90 | EXTERNAL | | | Lymphocytes | performed at [facility], [address] | K/uL | LAB | | | | [address], | | | | | | [place] [address] | | | | + + + + + + | Absolute | 1.01 (H)Comment: Testing | 0.00 - 0.80 | EXTERNAL | | | Monocytes | performed at [facility], [address] | [address] | LAB | | | | [address], | | | | | | [place] [address] | | | | + + + + + + | Absolute | 0.52 (H)Comment: Testing | 0.00 - 0.50 | EXTERNAL | | | Eosinophils | performed at [facility], [address] | K/[address]L | LAB | | | | [address], | | | | | | [place] [address] | | | | + + + + + + | Absolute | 0.08Comment: Testing | 0.00 - 0.10 | EXTERNAL | | | Basophils | performed at [facility], [address] | K/uL | LAB | | | | [address], | | | | | | [place] [address] | | | | + + + + + + | RBC | RBC AND PLT MORPHOLOGY | | EXTERNAL | | | Morphology | APPEAR NORMALComment: | | LAB | | | | Testing performed at | | | | | | [facility], [address] | | | | | | [place] | | | | | | [address] | | | | + + + [...] EXTERNAL | | | | performed at [facility], [address] | | LAB | | | | [address], | | | | | | [place] [address] | | | | + + + [...] EXTERNAL | | | | performed at [facility], [address] | | LAB | | | | [address], | | | | | | [place] [address] | | | | + + + [...] | | | | | [place] [address] | | | | + + + + + + | K | 3.8Comment: Testing | 3.5 - 4.9 | EXTERNAL | | | | performed at [facility], [address] | mmol/L | LAB | | | | [address], | | | | | | [place] [address] | | | | + + + + + + | Cl | 101Comment: Testing | 99 - 109 mmol/L | EXTERNAL | | | | performed at [facility], [address] | | LAB | | | | [address], | | | | | | [place] [address] | | | | + + + + + + | CO2 | 27Comment: Testing | 23 - 32 mmol/L | EXTERNAL | | | | performed at [facility], [address] | | LAB | | | | [address], | | | | | | [place] [address] | | | | + + + + + + | Anion Gap | 12Comment: Testing | 5 - 20 mmol/L | EXTERNAL | | | | performed at [facility], [address] | | LAB | | | [address], | | | | | | [place] [address] | | | | + + + + + + | Glucose, | 118 (H)Comment: Testing | 65 - 99 mg/dL | EXTERNAL | | | Fasting | performed at [facility], [address] | | LAB | | | | [address], | | | | | | [place] [address] | | | | + + + + + + | BUN | 7 (L)Comment: Testing | 8 - 25 mg/dL | EXTERNAL | | | | performed at [facility], [address] | | LAB | | | | [address], | | | | | | [place] [address] | | | | + + + + + + | Creatinine | 0.79Comment: Testing | 0.50 - 1.00 | EXTERNAL | | | | performed at [facility], [address] | mg/dL | LAB | | | | [address], | | | | | | [place] [address] | | | | + + + + + + | BUN/Creatin | 9Comment: Testing | | EXTERNAL | | | ine Ratio | performed at [facility], [address] | | LAB | | | | [address], | | | | | | [place] [address] | | | | + + + + + + | Calcium | 7.5 (L)Comment: Testing | 8.5 - 10.5 | EXTERNAL | | | | performed at [facility], [address] | mg/dL | LAB | | | | [address], | | | | | | [place] [address] | | | | + + + + + + | Protein, | 7.2Comment: Testing | 6.3 - 8.2 g/dL | EXTERNAL | | | Total | performed at [facility], [address] | | LAB | | | | [address], | | | | | | [place] [address] | | | | + + + + + + | Albumin | 3.1 (L)Comment: Testing | 3.3 - 4.8 g/dL | EXTERNAL | | | | performed at [facility], [address] | | LAB | | | | [address], | | | | | | [place] [address] | | | | + + + + + + | Globulin | 4.1Comment: Testing | 1.3 - 4.9 g/dL | EXTERNAL | | | | performed at [facility], [address] | | LAB | | | | [address], | | | | | | [place] [address] | | | | + + + + + + | A/G Ratio | 0.8 (L)Comment: Testing | 1.0 - 2.4 | EXTERNAL | | | | performed at [facility], [address] | | LAB | | | [address], | | | | | | [place] [address] | | | | + + + + + + | Bilirubin | 0.5Comment: Testing | 0.1 - 1.5 mg/dL | EXTERNAL | | | Total | performed at [facility], [address] | | LAB | | | | [address], | | | | | | [place] [address] | | | | + + + + + + | ALP, | 76Comment: Testing | 35 - 115 U/L | EXTERNAL | | | External | performed at [facility], [address] | | LAB | | | [address], | | | | | | [place] [address] | | | | + + + + + + | AST | 43Comment: Testing | 10 - 45 U/L | EXTERNAL | | | | performed at [facility], [address] | | LAB | | | | [address], | | | | | | [place] [address] | | | | + + + + + + | ALT | 25Comment: Testing | 10 - 65 U/L | EXTERNAL | | | | performed at [facility], [address] | | LAB | | | | [facility], | | | | | | [place] [address] | | | | + + + [...] W | | | | | | [facility], | | | | | | [place] [address] | | | | + + + [...] | | | | performed at [facility];[address] | mmol/L | LAB | | | | [address];[place], [place] | | | | | | [address] | | | | + + + [...] | | | | performed at [facility];[address] | | LAB | | | | [address];[place], [place] | | | | | | [address] | | | | + + + [...] | | | | performed at [facility] | | LAB | | | | [address];[place], [place] | | | | | | [address] | | | | + + + [...] | | | | performed at [facility];888 | mmol/L | LAB | | | | [facility];[place], [place] | | | | | | [address] | | | | + + + [...] | | | | performed at [facility] | | LAB | | | | [address];[place], [place] | | | | | | [address] | | | | + + + [...] | | | | performed at [facility];[address] | | LAB | | | | [address];[place], [place] | | | | | | [address] | | | | + + + [...] EXTERNAL | | | | performed at [facility], [address] | K/uL | LAB | | | | [address], | | | | | | [place] [address] | | | | + + + + + + | Red Blood | 3.40 (L)Comment: Testing | 3.70 - 5.10 | EXTERNAL | | | Cells | performed at [facility], [address] | M/uL | LAB | | | Counted | [address], | | | | | | [place] [address] | | | | + + + + + + | Hemoglobin | 12.0Comment: Testing | 11.3 - 15.5 | EXTERNAL | | | | performed at [facility], [address] | g/dL | LAB | | | | [address], | | | | | | [place] [address] | | | | + + + + + + | Hematocrit, | 35.8Comment: Testing | 34.0 - 46.0 % | EXTERNAL | | | POC | performed at [facility], [address] | | LAB | | | | [address], | | | | | | [place] [address] | | | | + + + + + + | MCV | 105.3 (H)Comment: | 80.0 - 100.0 fl | EXTERNAL | | | | Testing performed at | | LAB | | | | [facility], [address] | | | | | | [place] | | | | | | [address] | | | | + + + + + + | MCH | 35.3 (H)Comment: Testing | 27.0 - 34.0 pg | EXTERNAL | | | | performed at [facility], [address] | | LAB | | | | [address], | | | | | | [place] [address] | | | | + + + + + + | MCHC | 33.6Comment: Testing | 32.0 - 35.5 | EXTERNAL | | | | performed at [facility], [address] | g/dL | LAB | | | | [address], | | | | | | [place] [address] | | | | + + + + + + | RDW-CV | 50.8Comment: Testing | 37 - 53 fl | EXTERNAL | | | | performed at [facility], [address] | | LAB | | | | [address], | | | | | | [place] [address] | | | | + + + + + + | Platelet | 149 (L)Comment: Testing | 150 - 400 K/uL | EXTERNAL | | | Count | performed at [facility], [address] | | LAB | | | Plasma | [address], | | | | | | [place] [address] | | | | + + + + + + | MPV | 13.0Comment: Testing | fl | EXTERNAL | | | | performed at [facility], [address] | | LAB | | | | [address], | | | | | | [place] [address] | | | | + + + + + + | Differentia | AUTOMATEDComment: | | EXTERNAL | | | l Type | Testing performed at | | LAB | | | | [facility], [address] | | | | | | [place] | | | | | | [address] | | | | + + + + + + | % Segmented | 52.08Comment: Testing | % | EXTERNAL | | | | performed at [facility], [address] | | LAB | | | Neutrophils | [address], | | | | | | [place] [address] | | | | + + + + + + | % | 32.37Comment: Testing | % | EXTERNAL | | | Lymphocytes | performed at [facility], [address] | | LAB | | | | [address], | | | | | | [place] [address] | | | | + + + + + + | % Monocytes | 10.07Comment: Testing | % | EXTERNAL | | | | performed at [facility], [address] | | LAB | | | [address], | | | | | | [place] [address] | | | | + + + + + + | % | 4.41Comment: Testing | % | EXTERNAL | | | Eosinophils | performed at [facility], [address] | | LAB | | | | [address], | | | | | | [place] [address] | | | | + + + + + + | % Basophils | 1.07Comment: Testing | % | EXTERNAL | | | | performed at [facility], [address] | | LAB | | | | [address], | | | | | | [place] [address] | | | | + + + + + + | Absolute | 5.59Comment: Testing | 1.90 - 7.40 | EXTERNAL | | | Segmented | performed at [facility], [address] | K/uL | LAB | | | Neutrophils | [address], | | | | | | [place] [address] | | | | + + + + + + | Absolute | 3.48Comment: Testing | 1.00 - 3.90 | EXTERNAL | | | Lymphocytes | performed at [facility], [address] | K/uL | LAB | | | | [address], | | | | | | [place] [address] | | | | + + + + + + | Absolute | 1.08 (H)Comment: Testing | 0.00 - 0.80 | EXTERNAL | | | Monocytes | performed at [facility], [address] | K/uL | LAB | | | | [address], | | | | | | [place] [address] | | | | + + + + + + | Absolute | 0.47Comment: Testing | 0.00 - 0.50 | EXTERNAL | | | Eosinophils | performed at [facility], [address] | K/uL | LAB | | | | [address], | | | | | | [place] [address] | | | | + + + + + + | Absolute | 0.12 (H)Comment: Testing | 0.00 - 0.10 | EXTERNAL | | | Basophils | performed at [facility], [address] | [address]L | LAB | | | | [address], | | | | | | [place] [address] | | | | + + + + + + | RBC | NORMAL RBC MORPHComment: | | EXTERNAL | | | Morphology | Testing performed at | | LAB | | | | [facility], [address] | | | | | | [place] | | | | | | [address] | | | | + + + + + + | Differentia | 1+ GIANT PLTComment: | | EXTERNAL | | | l Comments | Testing performed at | | LAB | | | | [facility], [address] | | | | | | [place] | | | | | | [address] | | | | + + + [...] | | | | | [place] [address] | | | | + + + + + + | K | 3.2 (L)Comment: Testing | 3.5 - 4.9 | EXTERNAL | | | | performed at [facility], [address] | mmol/L | LAB | | | | [address], | | | | | | [place] [address] | | | | + + + + + + | Cl | 100Comment: Testing | 99 - 109 mmol/L | EXTERNAL | | | | performed at [facility], [address] | | LAB | | | | [address], | | | | | | [place] [address] | | | | + + + + + + | CO2 | 28Comment: Testing | 23 - 32 mmol/L | EXTERNAL | | | | performed at [facility], [address] | | LAB | | | | [address], | | | | | | [place] [address] | | | | + + + + + + | Anion Gap | 13Comment: Testing | 5 - 20 mmol/L | EXTERNAL | | | | performed at [facility], [address] | | LAB | | | | [address], | | | | | | [place] [address] | | | | + + + + + + | Glucose, | 114 (H)Comment: Testing | 65 - 99 mg/dL | EXTERNAL | | | Fasting | performed at [facility], [address] | | LAB | | | | [address], | | | | | | [place] [address] | | | | + + + + + + | BUN | 8Comment: Testing | 8 - 25 mg/dL | EXTERNAL | | | | performed at [facility], [address] | | LAB | | | | [address], | | | | | | [place] [address] | | | | + + + + + + | Creatinine | 0.94Comment: Testing | 0.50 - 1.00 | EXTERNAL | | | | performed at [facility], [address] | mg/dL | LAB | | | | [address], | | | | | | [place] [address] | | | | + + + + + + | BUN/Creatin | 9Comment: Testing | | EXTERNAL | | | ine Ratio | performed at [facility], [address] | | LAB | | | | [address], | | | | | | [place] [address] | | | | + + + + + + | Calcium | 7.8 (L)Comment: Testing | 8.5 - 10.5 | EXTERNAL | | | | performed at [facility], [address] | mg/dL | LAB | | | | [address], | | | | | | [place] [address] | | | | + + + + + + | Protein, | 7.8Comment: Testing | 6.3 - 8.2 g/dL | EXTERNAL | | | Total | performed at [facility], [address] | | LAB | | | [address], | | | | | | [place] [address] | | | | + + + + + + | Albumin | 3.3Comment: Testing | 3.3 - 4.8 g/dL | EXTERNAL | | | | performed at [facility], [address] | | LAB | | | | [address], | | | | | | [place] [address] | | | | + + + + + + | Globulin | 4.5Comment: Testing | 1.3 - 4.9 g/dL | EXTERNAL | | | | performed at [facility], [address] | | LAB | | | [address], | | | | | | [place] [address] | | | | + + + + + + | A/G Ratio | 0.7 (L)Comment: Testing | 1.0 - 2.4 | EXTERNAL | | | | performed at [facility], [address] | | LAB | | | [address], | | | | | | [place] [address] | | | | + + + + + + | Bilirubin | 0.4Comment: Testing | 0.1 - 1.5 mg/dL | EXTERNAL | | | Total | performed at [facility], [address] | | LAB | | | | [address], | | | | | | [place] [address] | | | | + + + + + + | ALP, | 83Comment: Testing | 35 - 115 U/L | EXTERNAL | | | External | performed at [facility], [address] | | LAB | | | | [address], | | | | | | [place] [address] | | | | + + + + + + | AST | 34Comment: Testing | 10 - 45 U/L | EXTERNAL | | | | performed at [facility], [address] | | LAB | | | | [address], | | | | | | [place] [address] | | | | + + + + + + | ALT | 24Comment: Testing | 10 - 65 U/L | EXTERNAL | | | | performed at [facility], [address] | | LAB | | | | [address], | | | | | | [place] [address] | | | | + + + [...] [address], | | | | | | [place] [address] | | | | + + + [...] | | | | performed at [facility];8 | | | | | | [address];[place], [place] | | | | | | [address] | | | | + + + [...] | | | | performed at [facility] | | | | | | [address];[place], [place] | | | | | | [address] | | | | + + + [...] | | | | performed at [facility];888 | mmol/L | LAB | | | | [address];[place], [place] | | | | | | [address] | | | | + + + [...] | | | | performed at [facility] | | LAB | | | | [address];[place], [place] | | | | | | [address] | | | | + + + [...] TESTING. | | | Testing performed at [facility], [address] | | | [place] [facility] [place] [address] | | + + + + +---------+ [...] | Testing performed at | | | [facility], [address] [place] [address] | | + + + + +---------+ [...] NONE SEEN to 1+ Testing performed at [address] | | | [place] [address] | | + + + + +---------+ [...] antigen detected by ICA Testing performed at [facility], [address] | | | [place] [address] | | + + + + +---------+ [...] at | | | | | | [facility], [address] | | | | | | [place] [facility] | | | | | | [address] | | | | + + + [...] | | | | | performed at [facility], [address] | | | | | | [facility] | | | | | | [place] [address] | | | | + + + [...] | | | | performed at [facility];[address] | | LAB | | | | [address];[place] | | | | | | [address] | | | | + + + + + + | CMV DNA | NOT DETECTEDComment: | | EXTERNAL | | | QUANTITATIV | Unit: IU/MLTesting | | LAB | | | E INTERP | performed at [facility], [address] | | | | | | [place] | | | | | | [place] [address] | | | | + + + + + + | CMV DNA, | NOT DETECTEDComment: | | EXTERNAL | | | Qual PCR | Unit: COPIES/MLTesting | | LAB | | | | performed at [facility], [address] | | | | | | [place] | | | | | | [place] [address] | | | | + + + [...] | | | | | | DETERMINEDBY [facility] | | | | | | [facility]ISION [...] | | | | | | at [facility], [address] | | | | | | [place] | | | | | | [address] | | | | + + + [...] EXTERNAL | | | | performed at [facility], [address] | K/uL | LAB | | | | [address], | | | | | | [place] [address] | | | | + + + + + + | Red Blood | 3.28 (L)Comment: Testing | 3.70 - 5.10 | EXTERNAL | | | Cells | performed at [facility], [address] | M/uL | LAB | | | Counted | [address], | | | | | | [place] [address] | | | | + + + + + + | Hemoglobin | 11.6Comment: Testing | 11.3 - 15.5 | EXTERNAL | | | | performed at [facility], [address] | g/dL | LAB | | | | [address], | | | | | | [place] [address] | | | | + + + + + + | Hematocrit, | 34.5Comment: Testing | 34.0 - 46.0 % | EXTERNAL | | | POC | performed at [facility], [address] | | LAB | | | | [address], | | | | | | [place] [address] | | | | + + + + + + | MCV | 105.1 (H)Comment: | 80.0 - 100.0 fl | EXTERNAL | | | | Testing performed at | | LAB | | | | [facility], [address] [facility] | | | | | | [place] | | | | | | [address] | | | | + + + + + + | MCH | 35.3 (H)Comment: Testing | 27.0 - 34.0 pg | EXTERNAL | | | | performed at [facility], [address] | | LAB | | | | [address], | | | | | | [place] [address] | | | | + + + + + + | MCHC | 33.5Comment: Testing | 32.0 - 35.5 | EXTERNAL | | | | performed at [facility], [address] | g/dL | LAB | | | | [address], | | | | | | [place] [address] | | | | + + + + + + | RDW-CV | 50.8Comment: Testing | 37 - 53 fl | EXTERNAL | | | | performed at [facility], [address] | | LAB | | | | [address], | | | | | | [place] [address] | | | | + + + + + + | Platelet | 144 (L)Comment: Testing | 150 - 400 K/uL | EXTERNAL | | | Count | performed at [facility], [address] | | LAB | | | Plasma | [address], | | | | | | [place] [address] | | | | + + + + + + | MPV | 13.0Comment: Testing | fl | EXTERNAL | | | | performed at [facility], [address] | | LAB | | | | [address], | | | | | | [place] [address] | | | | + + + + + + | Differentia | AUTOMATEDComment: | | EXTERNAL | | | l Type | Testing performed at | | LAB | | | | [facility], [address] | | | | | | [place] | | | | | | [address] | | | | + + + + + + | % Segmented | 37.99Comment: Testing | % | EXTERNAL | | | | performed at [facility], [address] | | LAB | | | Neutrophils | [address], | | | | | | [place] [address] | | | | + + + + + + | % | 43.49Comment: Testing | % | EXTERNAL | | | Lymphocytes | performed at [facility], [address] | | LAB | | | | [address], | | | | | | [place] [address] | | | | + + + + + + | % Monocytes | 11.24Comment: Testing | % | EXTERNAL | | | | performed at [facility], [address] | | LAB | | | | [address], | | | | | | [place] [address] | | | | + + + + + + | % | 5.97Comment: Testing | % | EXTERNAL | | | Eosinophils | performed at [facility], [address] | | LAB | | | | [address], | | | | | | [place] [address] | | | | + + + + + + | % Basophils | 1.31Comment: Testing | % | EXTERNAL | | | | performed at [facility], [address] | | LAB | | | | [address], | | | | | | [place] [address] | | | | + + + + + + | Absolute | 4.01Comment: Testing | 1.90 - 7.40 | EXTERNAL | | | Segmented | performed at [facility], [address] | [address] | LAB | | | Neutrophils | [address], | | | | | | [place] [address] | | | | + + + + + + | Absolute | 4.59 (H)Comment: Testing | 1.00 - 3.90 | EXTERNAL | | | Lymphocytes | performed at [facility], [address] | [address] | LAB | | | | [address], | | | | | | [place] [address] | | | | + + + + + + | Absolute | 1.19 (H)Comment: Testing | 0.00 - 0.80 | EXTERNAL | | | Monocytes | performed at [facility], [address] | [address] | LAB | | | | [address], | | | | | | [place] [address] | | | | + + + + + + | Absolute | 0.63 (H)Comment: Testing | 0.00 - 0.50 | EXTERNAL | | | Eosinophils | performed at [facility], [address] | [address] | LAB | | | | [address], | | | | | | [place] [address] | | | | + + + + + + | Absolute | 0.14 (H)Comment: Testing | 0.00 - 0.10 | EXTERNAL | | | Basophils | performed at [facility], [address] | [address] | LAB | | | | [address], | | | | | | [place] [address] | | | | + + + + + + | RBC | NORMAL RBC MORPHComment: | | EXTERNAL | | | Morphology | Testing performed at | | LAB | | | | [facility], [address] | | | | | | [place] | | | | | | [address] | | | | + + + + + + | Differentia | 2+ GIANT PLTComment: | | EXTERNAL | | | l Comments | Testing performed at | | LAB | | | | [facility], [address] | | | | | | [place] | | | | | | [address] | | | | + + + [...] [place] | | | | | | [address] | | | | + + + [...] | | | (REF) | performed at [facility], [address] | | LAB | | | | [address], | | | | | | [place] [address] | | | | + + + [...] | | | | | [place] [address] | | | | + + + [...] | | | | | [place] [address] | | | | + + + [...] | | | | | [place] [address] | | | | + + + + + + | K | 3.0 (L)Comment: Testing | 3.5 - 4.9 | EXTERNAL | | | | performed at [facility], [address] | mmol/L | LAB | | | | [address], | | | | | | [place] [address] | | | | + + + + + + | Cl | 104Comment: Testing | 99 - 109 mmol/L | EXTERNAL | | | | performed at [facility], [address] | | LAB | | | | [address], | | | | | | [place] [address] | | | | + + + + + + | CO2 | 22 (L)Comment: Testing | 23 - 32 mmol/L | EXTERNAL | | | | performed at [facility], [address] | | LAB | | | | [address], | | | | | | [place] [address] | | | | + + + + + + | Anion Gap | 15Comment: Testing | 5 - 20 mmol/L | EXTERNAL | | | | performed at [facility], [address] | | LAB | | | | [address], | | | | | | [place] [address] | | | | + + + [...] | | | | | [place] [address] | | | | + + + + + + | Creatinine | 1.01 (H)Comment: Testing | 0.50 - 1.00 | EXTERNAL | | | | performed at [facility], [address] | mg/dL | LAB | | | | [address], | | | | | | [place] [address] | | | | + + + + + + | BUN/Creatin | 13Comment: Testing | | EXTERNAL | | | ine Ratio | performed at [facility], [address] | | LAB | | | | [address], | | | | | | [place] [address] | | | | + + + + + + | Calcium | 7.7 (L)Comment: Testing | 8.5 - 10.5 | EXTERNAL | | | | performed at [facility], [address] | mg/dL | LAB | | | | [address], | | | | | | [place] [address] | | | | + + + + + + | Protein, | 7.1Comment: Testing | 6.3 - 8.2 g/dL | EXTERNAL | | | Total | performed at [facility], [address] | | LAB | | | | [address], | | | | | | [place] [address] | | | | + + + + + + | Albumin | 3.2 (L)Comment: Testing | 3.3 - 4.8 g/dL | EXTERNAL | | | | performed at [facility], [address] | | LAB | | | | [address], | | | | | | [place] [address] | | | | + + + + + + | Globulin | 3.9Comment: Testing | 1.3 - 4.9 g/dL | EXTERNAL | | | | performed at [facility], [address] | | LAB | | | | [address], | | | | | | [place] [address] | | | | + + + + + + | A/G Ratio | 0.8 (L)Comment: Testing | 1.0 - 2.4 | EXTERNAL | | | | performed at [facility], [address] | | LAB | | | | [address], | | | | | | [place] [address] | | | | + + + + + + | Bilirubin | 0.4Comment: Testing | 0.1 - 1.5 mg/dL | EXTERNAL | | | Total | performed at [facility], [address] | | LAB | | | | [address], | | | | | | [place] [address] | | | | + + + + + + | ALP, | 76Comment: Testing | 35 - 115 U/L | EXTERNAL | | | External | performed at [facility], [address] | | LAB | | | | [address], | | | | | | [place] [address] | | | | + + + + + + | AST | 26Comment: Testing | 10 - 45 U/L | EXTERNAL | | | | performed at [facility], [address] | | LAB | | | [address], | | | | | | [place] [address] | | | | + + + + + + | ALT | 19Comment: Testing | 10 - 65 U/L | EXTERNAL | | | | performed at [facility], [address] | | LAB | | | | [address], | | | | | | [place] [address] | | | | + + + [...] | | | | | [place] [address] | | | | + + + [...] LAB | | | | performed at [facility], [address] | | | | | | [address], | | | | | | [place] [address] | | | | + + + [...] | | | Urine | performed at [facility], [address] | | LAB | | | Random | [address], | | | | | | [place] [address] | | | | + + + [...] | Testing performed | | | at [facility], [address] [place] [address] | | + + + + +---------+ [...] LA/Ao: 1.57 D-E Excursion: 2.11 cm E-F Morrill: 0.09 m/s | | | EPSS: 0.48 [...] TV A Billy: 0.66 m/s TV Dec Morrill: 4.36 m/s2 TV Dec | | | Time: 184.41 ms TV E Billy: 0.80 m/s TV E/A Ratio: 1.21 | | | Pilot Fuel Engineer: NEDRA Authenticated by: Gil Coronel MD [...] | Index (A-L): 40.51 ml/m2LAAs A2C: 24.56 [id number] A-L A2C: 76.32 mlLAESV MOD A2C: | | 73.52 mlLALs A2C: 6.71 cmLAAs A4C: 24.96 [id number] A-L A4C: 79.86 mlLAESV MOD A4C: | | 77.20 mlLALs A4C: 6.62 cmAo Diam: 2.73 cmAV Cusp: 2.27 cmLA Diam: 4.29 | | cmLA/Ao: 1.57D-E Excursion: 2.11 cmE-F Morrill: 0.09 m/sEPSS: 0.48 cmHR: 77.41 | | BPMAV maxP.05 mmHgAV meanP.21 mmHgAV Vmax: 1.73 m/Sorin Vmean: 1.25 m/Sorin | | VTI: 34.68 cmAVA Vmax: 2.07 cm2AVA (VTI): 1.85 nh2IGQY Dopp: 2.60 l/djnl0DPYO | | Dopp: 5.05 l/minHR: 78.81 BPMLVOT [...] | m/sTV A Billy: 0.66 m/sTV Dec Morrill: 4.36 m/s2TV Dec Time: 184.41 msTV E Billy: 0.80 | | m/sTV E/A Ratio: 1.21 Pilot Fuel Engineer: Amberhenticated by: Gil Lott | | Date/Time: [...] | |D-E Excursion: 2.11 cm | |E-F Morrill: 0.09 m/s | |EPSS: 0.48 cm | [...] A Billy: 0.66 m/s | |TV Dec Morrill: 4.36 m/s2 | |TV Dec Time: 184.41 ms | |TV E Billy: 0.80 m/s | |TV E/A Ratio: 1.21 | | | |Pilot Fuel Engineer: GD | |Authenticated by: Gil Coronel MD [...] EXTERNAL LAB | | performed at [facility];[address] [place] [address];[place] [address] 027 NAP1 BI | | | 027 NAP1 BI PRESUMPTIVE NEGATIVE | | | Detection of 027 NAP1 BI strains of C. difficile is presumptive and | | | for epidemiological purposes and not intended to guide or monitor | | | treatment for C. difficile infections. Testing performed at [facility] | | | [facility];[place] [address] | | + + + + +---------+ [...] | | | | | | [place] [address] | | | | + + + + + + | Complement | 19.4Comment: Testing | 10 - 40 mg/dL | EXTERNAL | | | Comp 4 | performed at [facility], [address] | | LAB | | | | [address], | | | | | | [place] [address] | | | | + + + [...] | | | | performed at [facility];[address] | | | | | | [facility];[place], [place] | | | | | | [address] | | | | + + + [...] | LAB | | | | [facility];[address] | [address];[place] [address] | | | | + + + + + + | Red Blood | 3.27 (L)Comment: Testing | 3.70 - 5.10 | EXTERNAL | | | Cells | performed at [facility];[address] | M/uL | LAB | | | Counted | [address];[place] | | | | | | [address] | | | | + + + + + + | Hemoglobin | 11.2 (L)Comment: Testing | 11.3 - 15.5 | EXTERNAL | | | | performed at [facility];[address] | g/dL | LAB | | | | [address];[place] | | | | | | [address] | | | | + + + + + + | Hematocrit, | 34.4Comment: Testing | 34.0 - 46.0 % | EXTERNAL | | | POC | performed at [facility];[address] | | LAB | | | | [address];[place] | | | | | | [address] | | | | + + + + + + | MCV | 105.2 (H)Comment: | 80.0 - 100.0 fl | EXTERNAL | | | | Testing performed at | | LAB | | | | [facility];[address] | [address];[place] [address] | | | | + + + + + + | MCH | 34.2 (H)Comment: Testing | 27.0 - 34.0 pg | EXTERNAL | | | | performed at [facility];[address] | | LAB | | | | [address];[place] | | | | | | [address] | | | | + + + + + + | MCHC | 32.5Comment: Testing | 32.0 - 35.5 | EXTERNAL | | | | performed at [facility];[address] | g/dL | LAB | | | | [address];[place] | | | | | | [address] | | | | + + + + + + | RDW-CV | 50.3Comment: Testing | 37 - 53 fl | EXTERNAL | | | | performed at [facility];[address] | | LAB | | | | [address];[place] | | | | | | [address] | | | | + + + + + + | Platelet | 160Comment: Testing | 150 - 400 K/uL | EXTERNAL | | | Count | performed at [facility];[address] | | LAB | | | Plasma | [address];[place] | | | | | | [address] | | | | + + + + + + | MPV | 11.1Comment: Testing | fl | EXTERNAL | | | | performed at [facility];[address] | | LAB | | | | [address];[place] | | | | | | [address] | | | | + + + + + + | Differentia | AUTOMATEDComment: | | EXTERNAL | | | l Type | Testing performed at | | LAB | | | | [facility];[address];[place] [address] | | | | + + + + + + | % Segmented | 50.65Comment: Testing | % | EXTERNAL | | | | performed at [facility];[address] | | LAB | | | Neutrophils | [address];[place] | | | | | | [address] | | | | + + + + + + | % | 37.06Comment: Testing | % | EXTERNAL | | | Lymphocytes | performed at [facility];[address] | | LAB | | | | [address];[place] | | | | | | [address] | | | | + + + + + + | % Monocytes | 9.60Comment: Testing | % | EXTERNAL | | | | performed at [facility];[address] | | LAB | | | | [address];[place] | | | | | | [address] | | | | + + + + + + | % | 1.30Comment: Testing | % | EXTERNAL | | | Eosinophils | performed at [facility];[address] | | LAB | | | | [address];[place] | | | | | | [address] | | | | + + + + + + | % Basophils | 1.39Comment: Testing | % | EXTERNAL | | | | performed at [facility];[address] | | LAB | | | | [address];[place] | | | | | | [address] | | | | + + + + + + | Absolute | 6.64Comment: Testing | 1.90 - 7.40 | EXTERNAL | | | Segmented | performed at [facility];[address] | K/uL | LAB | | | Neutrophils | [address];[place] | | | | | | [address] | | | | + + + + + + | Absolute | 4.86 (H)Comment: Testing | 1.00 - 3.90 | EXTERNAL | | | Lymphocytes | performed at [facility];[address] | K/uL | LAB | | | | [address];[place] | | | | | | [address] | | | | + + + + + + | Absolute | 1.26 (H)Comment: Testing | 0.00 - 0.80 | EXTERNAL | | | Monocytes | performed at [facility];[address] | K/uL | LAB | | | | [address];[place] | | | | | | [address] | | | | + + + + + + | Absolute | 0.17Comment: Testing | 0.00 - 0.50 | EXTERNAL | | | Eosinophils | performed at [facility];[address] | K/uL | LAB | | | | [address];[place] | | | | | | [address] | | | | + + + + + + | Absolute | 0.18 (H)Comment: Testing | 0.00 - 0.10 | EXTERNAL | | | Basophils | performed at [facility];[address] | K/uL | LAB | | | | [address];[place] | | | | | | [address] | | | | + + + [...] | | | | performed at [facility];[address] | | LAB | | | | [address];[place] | | | | | | [address] | | | | + + + [...] | | | | performed at [facility] | | | | | | [address] [facility];[place], [place] | | | | | | [address] | | | | + + + [...] | | | | performed at [facility];[address] | mmol/L | LAB | | | | [address];[place] | | | | | | [address] | | | | + + + + + + | K | 3.7Comment: SLT | 3.5 - 4.9 | EXTERNAL | | | | HEMOLYSISTesting | mmol/L | LAB | | | | performed at [facility];[address] | | | | | | [address];[place] | | | | | | [address] | | | | + + + + + + | Cl | 110 (H)Comment: Testing | 99 - 109 mmol/L | EXTERNAL | | | | performed at [facility];[address] | | LAB | | | | [address];[place] | | | | | | [address] | | | | + + + + + + | CO2 | 24Comment: Testing | 23 - 32 mmol/L | EXTERNAL | | | | performed at [facility];[address] | | LAB | | | | [address];[place] | | | | | | [address] | | | | + + + + + + | Anion Gap | 13Comment: Testing | 5 - 20 mmol/L | EXTERNAL | | | | performed at [facility];[address] | | LAB | | | | [address];[place] | | | | | | [address] | | | | + + + + + + | Glucose, | 109 (H)Comment: Testing | 65 - 99 mg/dL | EXTERNAL | | | Fasting | performed at [facility];[address] | | LAB | | | | [address];[place] | | | | | | [address] | | | | + + + + + + | BUN | 24Comment: Testing | 8 - 25 mg/dL | EXTERNAL | | | | performed at [facility];[address] | | LAB | | | | [address];[place] | | | | | | [address] | | | | + + + + + + | Creatinine | 1.7 (H)Comment: Testing | 0.50 - 1.00 | EXTERNAL | | | | performed at [facility];[address] | mg/dL | LAB | | | | [address];[place] | | | | | | [address] | | | | + + + + + + | BUN/Creatin | 14Comment: Testing | | EXTERNAL | | | ine Ratio | performed at [facility];[address] | | LAB | | | | [address];[place] | | | | | | [address] | | | | + + + + + + | Calcium | 7.4 (L)Comment: Testing | 8.5 - 10.5 | EXTERNAL | | | | performed at [facility];[address] | mg/dL | LAB | | | | [address];[place] | | | | | | [address] | | | | + + + + + + | Protein, | 7.0Comment: Testing | 6.3 - 8.2 g/dL | EXTERNAL | | | Total | performed at [facility];[address] | | LAB | | | | [address];[place] | | | | | | [address] | | | | + + + + + + | Albumin | 2.6 (L)Comment: Testing | 3.3 - 4.8 g/dL | EXTERNAL | | | | performed at [facility];[address] | | LAB | | | | [address];[place] | | | | | | [address] | | | | + + + + + + | Globulin | 4.3Comment: Testing | 1.3 - 4.9 g/dL | EXTERNAL | | | | performed at [facility];[address] | | LAB | | | | [address];[place] | | | | | | [address] | | | | + + + + + + | A/G Ratio | 0.6 (L)Comment: Testing | 1.0 - 2.4 | EXTERNAL | | | | performed at [facility];[address] | | LAB | | | | [address];[place] | | | | | | [address] | | | | + + + + + + | Bilirubin | 0.4Comment: Testing | 0.1 - 1.5 mg/dL | EXTERNAL | | | Total | performed at [facility];[address] | | LAB | | | | [address];[place] | | | | | | [address] | | | | + + + + + + | ALP, | 92Comment: Testing | 35 - 115 U/L | EXTERNAL | | | External | performed at [facility];[address] | | LAB | | | | [address];[place] | | | | | | [address] | | | | + + + + + + | AST | 35Comment: SLT | 10 - 45 U/L | EXTERNAL | | | | HEMOLYSISTesting | | LAB | | | | performed at [facility];[address] | | | | | | [address];[place] | | | | | | [address] | | | | + + + + + + | ALT | 29Comment: Testing | 10 - 65 U/L | EXTERNAL | | | | performed at [facility];[address] | | LAB | | | | [address];[place], [place] | | | | | | [address] | | | | + + + [...] | | | | | at [facility];[address] [place] [address] | | | | | | Blvd;[place] [address] | | | | + + + [...] | | | | performed at [facility];888 | uIU/mL | LAB | | | | [address];[place], [place] | | | | | | [address] | | | | + + + [...] | | | | | BON CORONEL ([id number]) on | | | | | | 01/15/2015 11:30:08 AM | | | | + + + + + + + + | Specimen | + + | | + + + + + | Narrative | Performed At | + + + | Historically converted procedure from [facility] environment | EXTERNAL LAB | + [...] | | | | performed at [facility];[address] | | | | | | [address];[place], [place] | | | | | | [address] | | | | + + + [...] GROWTH | | | Testing performed at [facility], | | | [address] [place] [address] | | + + + + +---------+ [...] | | study for comparison: None FINDINGS: Line Service Attendant 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 | | | degenerative [...] study | | for comparison: None FINDINGS: Line Service Attendant 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 degenerative changes of the [...] Testing | | | performed at [facility];[address] [place] [address];[place] [address] | | + + + + +---------+ [...] | | | | | at [facility];[address] [place] [address] | | | | | | [facility];[place] [address] | | | | + + + [...] | | | | performed at [facility];[address] | | LAB | | | | [address];[place] | | | | | | [address] | | | | + + + [...] | | | | performed at [facility];[address] | | LAB | | | | [address];[place] | | | | | | [address] | | | | + + + [...] | | | | performed at [facility];888 | mmol/L | LAB | | | | [facility];[place], [place] | | | | | | [address] | | | | + + + [...] EXTERNAL | | | | performed at [facility], [address] | | LAB | | | | [address] [facility], | | | | | | [place] [address] | | | | + + + [...] | LAB | | | | [facility], [address] | | | | | | [place] | | | | | | [address] | | | | + + + [...] | | | | | ONLY, -COMPUTER ([id number]), | | | | | | photography editor Shala Gramajo | | | | | | (25) on 01/14/2015 | | | | | | 11:17:50 PM | | | | + + + + + + + + | Specimen | + + | | + + + + + | Narrative | Performed At | + + + | [facility] | EXTERNAL LAB | + [...] | | | | performed at [facility] | | LAB | | | | [address];[place] | | | | | | [address] | | | | + + + [...] | | | | performed at [facility];[address] | | LAB | | | | [address];[place], [place] | | | | | | [address] | | | | + + + [...] | | | | performed at [facility] | | | | | | [address];[place], [place] | | | | | | [address] | | | | + + + [...] | | | | performed at [facility];[address] | | LAB | | | | [address];[place] | | | | | | [address] | | | | + + + [...] | | | | performed at [facility];[address] | | LAB | | | | [address];[place], [place] | | | | | | [address] | | | | + + + [...] | LAB | | | | [facility];[address];[place] [address] | | | | + + + + + + | Red Blood | 4.17Comment: Testing | 3.70 - 5.10 | EXTERNAL | | | Cells | performed at [facility];[address] | M/uL | LAB | | | Counted | [address];[place] | | | | | | [address] | | | | + + + + + + | Hemoglobin | 14.6Comment: Testing | 11.3 - 15.5 | EXTERNAL | | | | performed at [facility];888 | g/dL | LAB | | | | [address];[place] | | | | | | [address] | | | | + + + + + + | Hematocrit, | 42.7Comment: Testing | 34.0 - 46.0 % | EXTERNAL | | | POC | performed at [facility];[address] | | LAB | | | | [address];[place] | | | | | | [address] | | | | + + + + + + | MCV | 102.3 (H)Comment: | 80.0 - 100.0 fl | EXTERNAL | | | | Testing performed at | | LAB | | | | [facility];[address];[place] [address] | | | | + + + + + + | MCH | 35.0 (H)Comment: Testing | 27.0 - 34.0 pg | EXTERNAL | | | | performed at [facility];[address] | | LAB | | | | [address];[place] | | | | | | [address] | | | | + + + + + + | MCHC | 34.2Comment: Testing | 32.0 - 35.5 | EXTERNAL | | | | performed at [facility];888 | g/dL | LAB | | | | [address];[place] | | | | | | [address] | | | | + + + + + + | RDW-CV | 49.9Comment: Testing | 37 - 53 fl | EXTERNAL | | | | performed at [facility];[address] | | LAB | | | | [address];[place] | | | | | | [address] | | | | + + + + + + | Platelet | 209Comment: Testing | 150 - 400 K/uL | EXTERNAL | | | Count | performed at [facility];[address] | | LAB | | | Plasma | [address];[place] | | | | | | [address] | | | | + + + + + + | MPV | 11.1Comment: Testing | fl | EXTERNAL | | | | performed at [facility];[address] | | LAB | | | | [address];[place] | | | | | | [address] | | | | + + + + + + | RBC | 1+Comment: GIANT | | EXTERNAL | | | Morphology | PLATELETS1+MACROTesting | | LAB | | | | performed at [facility];[address] | | | | | | [address];[place] | | | | | | [address] | | | | | |Testing performed at [facility];[address];[place] [address] | | | | | | | | | | + + + + + + | Differentia | MANUALComment: Testing | | EXTERNAL | | | l Type | performed at [facility];[address] | | LAB | | | | [address];[place] | | | | | | [address] | | | | + + + + + + | Segmented | 58Comment: Testing | % | EXTERNAL | | | Neutrophils | performed at [facility];[address] | | LAB | | | Manual | [address];[place] | | | | | | [address] | | | | + + + + + + | Lymphocytes | 32Comment: Testing | % | EXTERNAL | | | Manual | performed at [facility];[address] | | LAB | | | | [address];[place] | | | | | | [address] | | | | + + + + + + | Monocytes | 9Comment: Testing | % | EXTERNAL | | | Manual | performed at [facility];[address] | | LAB | | | | [address];[place] | | | | | | [address] | | | | + + + + + + | Eosinophils | 1Comment: Testing | % | EXTERNAL | | | Manual | performed at [facility];[address] | | LAB | | | | [address];[place] | | | | | | [address] | | | | + + + + + + | Absolute | 9.39 (H)Comment: Testing | 1.90 - 7.40 | EXTERNAL | | | Neutrophils | performed at [facility];[place] | K/uL | LAB | | | | [address];[place] | | | | | | [address] | | | | + + + + + + | Absolute | 5.18 (H)Comment: Testing | 1.00 - 3.90 | EXTERNAL | | | Lymphocytes | performed at [facility];[address] | K/uL | LAB | | | | [address];[place] | | | | | | [address] | | | | + + + + + + | Absolute | 1.46 (H)Comment: Testing | 0.00 - 0.80 | EXTERNAL | | | Monocytes | performed at [facility];[address] | K/uL | LAB | | | | [address];[place] | | | | | | [address] | | | | + + + + + + | Absolute | 0.16Comment: Testing | 0.00 - 0.50 | EXTERNAL | | | Eosinophils | performed at [facility];[address] | K/uL | LAB | | | | [address];[place] | | | | | | [address] | | | | + + + + + + | Na | 140Comment: Testing | 135 - 143 | EXTERNAL | | | | performed at [facility];[place] | mmol/L | LAB | | | | [address];[place] | | | | | | [address] | | | | + + + + + + | K | 2.8 (L)Comment: Testing | 3.5 - 4.9 | EXTERNAL | | | | performed at [facility];[place] | mmol/L | LAB | | | | [address];[place] | | | | | | [address] | | | | + + + + + + | Cl | 100Comment: Testing | 99 - 109 mmol/L | EXTERNAL | | | | performed at [facility];[address] | | LAB | | | | [address];[place] | | | | | | [address] | | | | + + + + + + | CO2 | 29Comment: Testing | 23 - 32 mmol/L | EXTERNAL | | | | performed at [facility];[address] | | LAB | | | | [address];[place] | | | | | | [address] | | | | + + + + + + | Anion Gap | 14Comment: Testing | 5 - 20 mmol/L | EXTERNAL | | | | performed at [facility];[address] | | LAB | | | | [address];[place] | | | | | | [address] | | | | + + + + + + | Glucose, | 107 (H)Comment: Testing | 65 - 99 mg/dL | EXTERNAL | | | Fasting | performed at [facility];[address] | | LAB | | | | [address];[place] | | | | | | [address] | | | | + + + + + + | BUN | 28 (H)Comment: Testing | 8 - 25 mg/dL | EXTERNAL | | | | performed at [facility];[address] | | LAB | | | | [address];[place] | | | | | | [address] | | | | + + + + + + | Creatinine | 2.4 (H)Comment: Testing | 0.50 - 1.00 | EXTERNAL | | | | performed at [facility];[place] | mg/dL | LAB | | | | [address];[place] | | | | | | [address] | | | | + + + + + + | BUN/Creatin | 12Comment: Testing | | EXTERNAL | | | ine Ratio | performed at [facility] | | LAB | | | | [address];[place] | | | | | | [address] | | | | + + + + + + | Calcium | 8.1 (L)Comment: Testing | 8.5 - 10.5 | EXTERNAL | | | | performed at [facility]888 | mg/dL | LAB | | | | [address];[place] | | | | | | [address] | | | | + + + + + + | Protein, | 9.3 (H)Comment: Testing | 6.3 - 8.2 g/dL | EXTERNAL | | | Total | performed at [facility];[address] | | LAB | | | | [address];[place] | | | | | | [address] | | | | + + + + + + | Albumin | 3.3Comment: Testing | 3.3 - 4.8 g/dL | EXTERNAL | | | | performed at [facility] | | LAB | | | | [address];[place] | | | | | | [address] | | | | + + + + + + | Globulin | 6.0 (H)Comment: Testing | 1.3 - 4.9 g/dL | EXTERNAL | | | | performed at [facility] | | LAB | | | | [address];[place] | | | | | | [address] | | | | + + + + + + | A/G Ratio | 0.5 (L)Comment: Testing | 1.0 - 2.4 | EXTERNAL | | | | performed at [facility];[address] | | LAB | | | | [address];[place] | | | | | | [address] | | | | + + + + + + | Bilirubin | 0.4Comment: Testing | 0.1 - 1.5 mg/dL | EXTERNAL | | | Total | performed at [facility];[address] | | LAB | | | | [address];[place] | | | | | | [address] | | | | + + + + + + | ALP, | 129 (H)Comment: Testing | 35 - 115 U/L | EXTERNAL | | | External | performed at [facility];[address] | | LAB | | | | [address];[place] | | | | | | [address] | | | | + + + + + + | AST | 39Comment: Testing | 10 - 45 U/L | EXTERNAL | | | | performed at [facility];[address] | | LAB | | | | [address];[place] | | | | | | [address] | | | | + + + + + + | ALT | 38Comment: Testing | 10 - 65 U/L | EXTERNAL | | | | performed at [facility];[address] | | LAB | | | | [address];[place] | | | | | | [address] | | | | + + + [...] | | | | | at [facility];[address] | | | | | | [address];[place] [address] | | | | + + + + + + | CK, Total | 151Comment: Testing | 30 - 240 U/L | EXTERNAL | | | | performed at [facility];[address] | | LAB | | | | [address];[place] | | | | | | [address] | | | | + + + [...] | | | | performed at [facility];[address] | | | | | | [address];[place] | | | | | | [address] | | | | + + + + + + | aPTT, | 26Comment: Testing | 23 - 32 seconds | EXTERNAL | | | Patient | performed at [facility];[address] | | LAB | | | | [address];[place] | | | | | | [address] | | | | + + + + + + | CK-MB | 3.9 (H)Comment: Testing | 0.5 - 3.6 ng/mL | EXTERNAL | | | | performed at [facility];[address] | | LAB | | | | [address];[place], [place] | | | | | | [address] | | | | + + + [...] | | | | performed at [facility] | | | | | | [address] [facility];[place], [place] | | | | | | [address] | | | | + + + [...]
--- OUTSIDE RECORDS SUMMARY | ~2019-09-28 | XMS | Clinical Summary ---
Demographics + + + | Address | [address] | | | [place] [address] | + + + | Home Phone | | + + + | Preferred Language | Unknown | + + + | Marital Status | Unknown | + + + | Scientologist Affiliation | Unknown | + + + | Race | Unknown | + + + | Ethnic Group | Unknown | + + + Author + + + | Author | [facility] | + + + | Organization | [facility] | + + + | Address | Unknown | + + + | Phone | Unavailable | + + + Care Team Providers + +------+ + | Care [employer]icopter Name | Role | Phone | + +------+ + PCP | Unavailable | + +------+ + Source Comments JAYDEN is fully live on both EpicCare Ambulatory and EpicCare InPatient.[facility] Allergies Not on File Medications Not on [...]
--- OUTSIDE RECORDS SUMMARY | ~2019-09-28 | XMS | Encounter Summary ---
Demographics + + + | Address | [address] | | | [place] [address] | + + + | Home Phone [...] + + + | Author | [facility] | | | and [place] | + + + | Organization | [facility] | | | [...] Team Providers + +------+ + | Care Estimator Project Manager Name | Role | Phone | [...] + + | 03/26/ | Office | [facility] | Gary Melendez, | Hypoxemia (Primary | | 2014 | Visit | PULMONARY [address] | MD [address] | Dx); Kyphosis | | | | [place], | [place], [place] | deformity of spine; | | | | [place] [address] | [address] | Restrictive lung | | | | [phone] | | disease | +--------+---------+ + + [...] T[facility] | | | | | | [address] | | | | | | | [...] | Procedure Note | + + | Hyaden, Rad Results In - 05/10/2014 4:23 PM [...] + | MISCELLANEOUS LAB | | | [phone] | + +---------+ + + | MISCELANIOUS LAB | | | [phone] | + +---------+ + + documented in this encounter Visit Diagnoses + + | Diagnosis | + + | Hypoxemia - Primary | + + | 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
--- OUTSIDE RECORDS SUMMARY | ~2019-09-28 | XMS | Encounter Summary ---
Demographics + + + | Address | [address] | | | [place] [address] | + + + | Home Phone [...] Team Providers + +------+ + | Care Tumblers Supervisor Name | Role | Phone | [...] | | | CONSULT | [place] | [place] [address] | | | | | | [place], [place] | Phone: | | | | | | [address] | [phone] | | | | | | Phone: | Fax: | | | | | | [phone] | [phone] | | | | | | Fax: | | | | | | | [phone] | | +--------+--------+ + + + + [...] | Dx); Kyphosis | | | | [address], | [place], [place] | deformity of spine | | | | [place] [address] | [address] | | | | | [phone] | | | +--------+---------+ + + + [...] oxygen at 2 L per minute at [facility] while she slept. Over last [...] A copy of the patient's echocardiogram from [facility] will be reviewed. CC: Yovani Santana documented in this encounter Plan of Treatment +--------+---------+ + + + | Date | Type | Specialty | Care Team | Description | +--------+---------+ + + + | 10/24/ | Office | Cardiology | Yaquelin Alves DO | | | 2019 | Visit | | [address] | | | | | | [place] | | | | | | [address] | | | | | | | | +--------+---------+ + + + documented as of this encounter Results PFT PULMONARY FUNCTION TESTING ORDERS Full PFT ([place] w/BD, lung volumes, diffusion)?: Yes; Rest and [...] Melendez MD 03/27/2014 13:24 | | | [facility] | | + + + [...] 03/26/14Electronically signed by: Gary Melendez MD 03/27/2014 13:24[facility] | | [facility] | | | |No prior pulmonary function tests available for comparison. 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
--- OUTSIDE RECORDS SUMMARY | ~2019-09-28 | XMS | Encounter Summary ---
Demographics + + + | Address | [address] | | | [place] [address] | + + + | Home Phone | | + + + | Preferred Language | Unknown | + + + | Marital Status | Single | + + + | Denominational Affiliation | [id number] | + + + [...] Team Providers + +------+ + | Care Clean Room Assembler Name | Role | Phone | + +------+ + | Yovani Santana MD | PCP | | + +------+ + Encounter Details +--------+ + + + + | Date | Type | Department | Care Team | Description | +--------+ + + + + | 01/28/ | Hospital | [facility] | Jacob Smith, | | | 2014 - | Encounter | [facility] | MD Carmelo SANTAMARIA | | | | | CARE FLOOR [address] | [place] [address] | | | 02/03/ | | TIERA SANTAMARIA | [phone] | | | 2014 | | [place], [place] | | | | | | [address] | | | | | | [phone] | | | +--------+ + + + [...] Date of Service: 02/03/15 1029 Status: Signed Dungeon Master: Jose Maria Espinal MD (Physician) Related Notes: Original Note by Jose Maria Espinal MD (Physician) filed at 02/04/15 1345 [facility] Service: Hospitalist Physician Discharge Summary Patient [...] 2-4 lpm, Presented as a transfer from [facility] in [place] for fever of 101 and altered mental s tatus. She was discharged from [facility] on 01/09/15 for elevated troponin and acute [...] She was brought back in to [facility] for fever and confusion. UA and CXR reportedly negative there. SBP was 90s. She had formed stool there but en route here she did develop watery stool, tested C diff + here.".......per admitting MD/Dr. Smith . The patient was admitted to [facility] with a diagnosis of Clostridium difficile infection while she was being transferred from [facility] with fever and altered mental status. Th e patient has underlying immunosuppression secondary to a remote history of liver transplant on chronic immunosuppressive therapy with azathioprine and cyclosporin. Following her trans fletcher to [facility], she was started on oral vancomycin initially [...] medically stable for discharge to return to [facility] in [place] on Jan. ADDITIONAL ISSUES 1. Recurrent atelectasis. [...] days. 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 We sent some of them to a specific pharmacy. Go t o these places to get your medications. [facility] - [place], [place] - [address] - lactobacillus granules [address] [place] [address] You may get the following medications from [...] Management by Pedro Partida RN at 02/03/15 5536 Author: Pedro Partida RN Service: (none) Author Type: Registered Nurse Filed: 02/03/15 4629 Date of Service: 02/03/151608 Status: Signed Dungeon Master: Pedro Partida RN (Registered Nurse) 02/03/15 1606 Discharge Planning Evaluation Admitting Diagnosis Elevated temp, CKD, post liver transplant Readmission Yes-within 14 days Reason for readmission Fever, confusion, C.dif Last discharge disposition Assisted Facility Needs met at last discharge Yes Picked up discharge Rx medications Yes Started prescribed DC meds Yes Understood discharge instructions Yes Assistance available Yes Concerns for meeting needs No Caregiver after Discharge Yes Mental Status Oriented Anticipated Disposition Facility Type alf facility Assisted Facility Other (comment) ([facility] in [place]) Disposition: Return to [facility] Transportation: Facility van to transport. All orders, signed AVS, and prescriptions have been faxed All DC paperwork completed Patient and family in agreement with transfer Medicare important message signed and copy in chart PEDRO PARTIDA RN Jose Maria [place] MD - 02/02/2015 3:22 PM PDTFormatting of this note might be different from armando e original. Progress Notes by Jose Maria Esipnal MD at 02/02/15 1522 Author: Jose Maria Espinal MD Service: Hospitalist Author Type: Physician Filed: 02/03/15 0900 Date of Service: 02/02/15 1522 Status: Signed Dungeon Master: Jose Maria Espinal MD (Physician) Related Notes: Original Note by Jose Maria Espinal MD (Physician) filed at 02/02/15 1950 [facility] Service: Hospitalist Progress Note Pt: Cole Ernst AGE/SEX: 69 y.o. female : 1945 ROOM: [address] [place] [address] History of Present Illness: " The patient is a 69 y.o. female with significant past medical history of liver transplant int he 90s on cyclosporine and imuran, chronic pain on methadone, CKD st 3, chronic home O2 of unclear etiology from 2-4 lpm, Presented as a transfer from [facility] in [place] for fever of 101 and altered mental s tatus. She was discharged from [facility] on 01/09/15 for elevated troponin and acute [...] She was brought back in to [facility] for fever and confusion. UA [...] establishing readiness of the faci lity in [place] to accept the patient in the next [...] contrast. Prior study for comparison: None FINDINGS: Molder Closed Molds 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 deg enerative changes of [...] LA/Ao: 1.57 D-E Excursion: 2.11 cm E-F Charles Mix: 0.09 m/s EPSS: 0.48 cm HR: 77.41 [...] TV A Billy: 0.66 m/s TV Dec Charles Mix: 4.36 m/s2 TV Dec Time: 184.41 ms TV E Billy: 0.80 m/s TV E/A Rat io: 1.21 Photoflash Powder Mixer: NEDRA Authenticated by: Gil Martines MD Report [...] Procedure: COLONOSCOPY; Surgeon: Juan Ramey MD; Location: [facility] ENDOSCOPY; Service: Gastroenterology; Laterality: N/A; PROBLEM LIST [...] by Jose Maria Espinal MD at 02/01/15 4368 Author: Jose Maria Espinal MD Service: Hospitalist Author Type: Physician Filed: 02/02/15 1521 Date of Service: 02/01/151716 Status: Signed Dungeon Master: Jose Maria Espinal MD (Physician) Related Notes: Original Note by Jose Maria Espinal MD (Physician) filed at 02/02/15 7216 [facility] Service: Hospitalist Progress Note Pt: Cole Ernst AGE/SEX: 69 y.o. female : 1945 ROOM: [address] [place] [address] History of Present Illness: " The patient is a 69 y.o. female with significant past medical history of liver transplant int he 90s on cyclosporine and imuran, chronic pain on methadone, CKD st 3, chronic home O2 of unclear etiology from 2-4 lpm, Presented as a transfer from [facility] in [place] for fever of 101 and altered mental s tatus. She was discharged from [facility] on 01/09/15 for elevated troponin and acute [...] She was brought back in to [facility] for fever and confusion. UA [...] establishing readiness of the faci lity in [place] to accept the patient in the next [...] contrast. Prior study for comparison: None FINDINGS: Molder Closed Molds 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 deg enerative changes of [...] Perfusion Spect (stress And Rest) 01/18/2015 COLE RENST 1945 [place] MYOCARDIAL PERFUSION SPECT - STRESS [...] LA/Ao: 1.57 D-E Excursion: 2.11 cm E-F Charles Mix: 0.09 m/s EPSS: 0.48 cm HR: 77.41 [...] TV A Billy: 0.66 m/s TV Dec Charles Mix: 4.36 m/s2 TV Dec Time: 184.41 ms TV E Billy: 0.80 m/s TV E/A Rat io: 1.21 Photoflash Powder Mixer: NEDRA Authenticated by: Gil Martines MD Report [...] Procedure: COLONOSCOPY; Surgeon: Juan Ramey MD; Location: [facility] ENDOSCOPY; Service: Gastroenterology; Laterality: N/A; PROBLEM LIST [...] Currently with normal liver function tests. 3. Lypre-pj-vkokwkt liver disease, stage III. Creatinine level has [...] 01/31/152124 Date of Service: 01/31/151513 Status: Signed Dungeon Master: Jose Maria Espinal MD (Physician) Related Notes: Original Note by Jose Maria Espinal MD (Physician) filed at 01/31/15 1523 [facility] Service: Hospitalist Progress Note Pt: Cole Ernst AGE/SEX: 69 y.o. female : 1945 ROOM: [address] [place] [address] History of Present Illness: " The patient is a 69 y.o. female with significant past medical history of liver transplant int he 90s on cyclosporine and imuran, chronic pain on methadone, CKD st 3, chronic home O2 of unclear etiology from 2-4 lp, Presented as a transfer from [facility] in [place] for fever of 101 and altered mental s tatus. She was discharged from [facility] on 01/09/15 for elevated troponin and acute [...] She was brought back in to [facility] for fever and confusion. UA [...] contrast. Prior study for comparison: None FINDINGS: Molder Closed Molds 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 deg enerative changes of [...] LA/Ao: 1.57 D-E Excursion: 2.11 cm E-F Charles Mix: 0.09 m/s EPSS: 0.48 cm HR: 77.41 [...] TV A Billy: 0.66 m/s TV Dec Charles Mix: 4.36 m/s2 TV Dec Time: 184.41 ms TV E Billy: 0.80 m/s TV E/A Rat io: 1.21 Photoflash Powder Mixer: NEDRA Authenticated by: Gil Martines MD Report [...] Procedure: COLONOSCOPY; Surgeon: Juan Ramey MD; Location: [facility] ENDOSCOPY; Service: Gastroenterology; Laterality: N/A; PROBLEM LIST [...] 01/31/151312 Date of Service: 01/31/151312 Status: Signed Dungeon Master: Catina Moon () Attempted visit. Pt sitting in chair sleeping. No family present. Chaplain Catina Moon onver alessandro Transaction, Provider Unknown - 01/31/2015 11:35 AM PDT Therapy Progress Note by Mahi Yanes PTA at 01/31/15 1578 Author: Mahi Yanes PTA Service: (none) Author Type: Workplace Rehabilitation Officer Filed: 01/31/15 9872 Date of Service: 01/31/151134 Status: Signed Dungeon Master: Mahi Yanes PTA (Workplace Rehabilitation Officer) 01/31/15 1138 PT Last Visit PT Received On 01/31/15 [...] PDT Case Management by Gregg Keene MS, SURVEILLANCE SUPERVISOR at 01/31/15 1007 Author: Gregg Keene MS, SURVEILLANCE SUPERVISOR Service: (none) Author Type: Child Care Aide Filed: 01/31/15 1546 Date of Service: 01/31/15 1007 Status: Addendum Dungeon Master: Gregg Keene MS, SURVEILLANCE SUPERVISOR (Child Care Aide) Related Notes: Original Note by Gregg Keene MS, SURVEILLANCE SUPERVISOR (Child Care Aide) filed at 01/31/15 1007 Discharge planning - CM faxed updated clinical to Gi at [facility]. Discharge form s on front of chart for MD signature. CM notified Gi of anticipated d/c this weekend. onver alessandro Transaction, Provider Unknown - 01/30/2015 5:05 PM PDT Therapy Progress Note by Gail Vernon PT at 01/30/151704 Author: Gail Vernon PT Service: (none) Author Type: Physical Therapist Filed: 01/30/15 1753 Date of Service: 01/30/151704 Status: Signed Dungeon Master: Gail Vernon PT (Physical Therapist) 01/30/151704 PT [...] by Jose Maria Espinal MD at 01/30/15 4813 Author: Jose Maria Espinal MD Service: Hospitalist Author Type: Physician Filed: 01/31/15 8756 Date of Service: 01/30/154 Status: Signed Dungeon Master: Jose Maria Espinal MD (Physician) Related Notes: Original Note by Jose Maria Espinal MD (Physician) filed at 01/30/15 8433 [facility] Service: Hospitalist Progress Note Pt: Cole Ernst AGE/SEX: 69 y.o. female : 1945 ROOM: [facility]/6601-1 History of Present Illness: " The patient is a 69 y.o. female with significant past medical history of liver transplant int he 90s on cyclosporine and imuran, chronic pain on methadone, CKD st 3, chronic home O2 of unclear etiology from 2-4 lpm, Presented as a transfer from [facility] in [place] for fever of 101 and altered mental s tatus. She was discharged from [facility] on 01/09/15 for elevated troponin and acute [...] She was brought back in to [facility] for fever and confusion. UA [...] contrast. Prior study for comparison: None FINDINGS: Molder Closed Molds 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 deg enerative changes of [...] LA/Ao: 1.57 D-E Excursion: 2.11 cm E-F Charles Mix: 0.09 m/s EPSS: 0.48 cm HR: 77.41 [...] TV A Billy: 0.66 m/s TV Dec Charles Mix: 4.36 m/s2 TV Dec Time: 184.41 ms TV E Billy: 0.80 m/s TV E/A Rat io: 1.21 Photoflash Powder Mixer: NEDRA Authenticated by: Gil Martines MD Report [...] Procedure: COLONOSCOPY; Surgeon: Juan Ramey MD; Location: [facility] ENDOSCOPY; Service: Gastroenterology; Laterality: N/A; PROBLEM LIST [...] Patient's live r functions remain normal. 3. Jsbgw-eq-rwsufxj kidney disease stage III. Creatinine level has [...] by Jose Maria Espinal MD at 01/29/15 5117 Author: Jose Maria Espinal MD Service: Hospitalist Author Type: Physician Filed: 01/30/15 0957 Date of Service: 01/29/15 1651 Status: Signed Dungeon Master: Jose Maria Espinal MD (Physician) Related Notes: Original Note by Jose Maria Espinal MD (Physician) filed at 01/29/152024 [facility] Service: Hospitalist Progress Note Pt: Cole Ernst AGE/SEX: 69 y.o. female : 1945 ROOM: [address] [place] [address] History of Present Illness: " The patient is a 69 y.o. female with significant past medical history of liver transplant int he 90s on cyclosporine and imuran, chronic pain on methadone, CKD st 3, chronic home O2 of unclear etiology from 2-4 lp, Presented as a transfer from [facility] in [place] for fever of 101 and altered mental s tatus. She was discharged from [facility] on 01/09/15 for elevated troponin and acute [...] She was brought back in to [facility] for fever and confusion. UA [...] contrast. Prior study for comparison: None FINDINGS: Molder Closed Molds 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 deg enerative changes of [...] LA/Ao: 1.57 D-E Excursion: 2.11 cm E-F Charles Mix: 0.09 m/s EPSS: 0.48 cm HR: 77.41 [...] TV A Billy: 0.66 m/s TV Dec Charles Mix: 4.36 m/s2 TV Dec Time: 184.41 ms TV E Billy: 0.80 m/s TV E/A Rat io: 1.21 Photoflash Powder Mixer: NEDRA Authenticated by: Gil Martines MD Report [...] Procedure: COLONOSCOPY; Surgeon: Juan Ramey MD; Location: [facility] ENDOSCOPY; Service: Gastroenterology; Laterality: N/A; PROBLEM LIST [...] Management by Pedro Partida RN at 01/29/15 1289 Author: Pedro Partida RN Service: (none) Author Type: Registered Nurse Filed: 01/29/15 1541 Date of Service: 01/29/15 1525 Status: Signed Dungeon Master: Pedro Partida RN (Registered Nurse) 01/29/15 152 Discharge Planning Evaluation Admitting Diagnosis Intestinal infection C.dif. Readmission Yes-within 14 days Reason for readmission Intestinal infection C.dif Last discharge disposition Assisted Facility Needs met at last discharge Yes Picked up discharge Rx medications Not applicable Followed up with primary or specialty provider Yes Understood discharge instructions Yes Assistance available Yes Living Arrangements Alone Support Systems Friends/neighbors Type of Residence Private residence House type Apartment Independent with ADL's Yes Independent with Mobility Yes Caregiver after Discharge Yes Mental Status Oriented Anticipated Disposition Facility Type alf facility Assisted Facility Other (comment) ([facility] in [place]) Met with: patient and discussed discharge planning, Pt is a 69 y.o., female who was discharged from [facility] 2 wee ks ago to [facility]. Her sister, Renée Tipton is emergency contact, . Patient's PCP is: [facility] DE JESUS Patient's insurance: Medicare Coverage concerns: Medication coverage/concerns: Community resources utilized / needed: Assistance in transportation: Identification of any specific education / training: Barriers to Discharge / Alternative housing needed: Anticipated DCP: Return to [facility] PEDRO PARTIDA RN onver alessandro Transaction, Provider Unknown - 01/29/2015 8:55 AM PDT Therapy Progress Note by Barbara Edmond PT at 01/29/15 0871 Author: Barbara Edmond PT Service: (none) Author Type: Physical Therapist Filed: 01/29/15 0933 Date of Service: 01/29/15 0855 Status: Signed Dungeon Master: Barbara Edmond PT (Physical Therapist) 01/29/15854 PT [...] to SNF after current hospital stay. 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 Reports a few falls at facility ov er last week, otherwise denies falls over last 6mos. Was getting therapies at facility. Prior Function Level of [place] Modified independent with ADLs;Modified independent with functional [...] Barriers to Discharge Physical Deficits Impacting Functional [place];Self-care Deficit s Impacting Functional [place];Equipment Needs (see comment);Pain Recommendation Comments Needs return [...] Barriers to Discharge Physical Deficits Impacting Functional [place];Self-care Deficit s Impacting Functional [place];Equipment Needs (see comment);Pain Recommendation Comments Needs return [...] 01/29/15831 Date of Service: 01/29/15830 Status: Signed Dungeon Master: Malick Ramos RN (Registered Nurse) Infection Prevention Note: Patient stool is positive for C. Diff. Contact Enteric Precautions are required until furt her notice. Thank you. Malick Ramos RN, BA, Supervisor Of Instruction onver alessandro Transaction, Provider Unknown - 01/28/2015 3:23 PM PDT Progress Notes by Jimena Duarte RPH at 01/28/15 1523 Author: Jimena Duarte RPH Service: (none) Author Type: Pharmacist Filed: 01/28/151522 Date of Service: 01/28/151522 Status: Signed Dungeon Master: Jimena Duarte RPH (Pharmacist) Zosyn Extended Infusion Initial Consult-Per Dr. Jacob Ernst 69 y.o. female CrCl cannot be calculated (Unknown ideal weight.). NEUTROPHILS ABS Date Value Ref Range Status 01/18/2015 3.26 1.90 - 7.40 K/uL Final Comment: Testing performed at [facility], [address] [place] [id number] CREATININE Date Value Ref Range Status 01/19/2015 0.96 0.50 - 1.00 mg/dL Final Comment: Testing performed at [facility], [address] [place] [address] Zosyn extended Infusion loading and maintenance dose guidelines Loading Dose 4.5 g IV Over 30 minutes CrCl >20 ml/min 3.375 g IV Q 8 hours Over 4 hours CrCl 10-20 ml/min 3.375 g IV Q 12 hours Over 4 hours CrCl <10, HD, PD Follow [facility] Dosage Adjustments in Renal Dysfunction Protocol Plan [...] 01/28/151515 Date of Service: 01/28/151515 Status: Signed Dungeon Master: Jimena Duarte RPH (Pharmacist) Renal Dosing Monitoring: [...] | | | | | [place] | | | | | | [id number] | | | | | | | [...] | | | | performed at [facility], [address] | K/uL | LAB | | | | [address] [place], | | | | | | [place] [address] | | | | + + + + + + | Red Blood | 2.72 (L)Comment: Testing | 3.70 - 5.10 | EXTERNAL | | | Cells | performed at [facility], [address] | M/uL | LAB | | | Counted | [address], | | | | | | [place] [address] | | | | + + + + + + | Hemoglobin | 9.6 (L)Comment: Testing | 11.3 - 15.5 | EXTERNAL | | | | performed at [facility], [address] | g/dL | LAB | | | | [address], | | | | | | [place] [address] | | | | + + + + + + | Hematocrit, | 28.8 (L)Comment: Testing | 34.0 - 46.0 % | EXTERNAL | | | POC | performed at [facility], [address] | | LAB | | | | [address], | | | | | | [place] [address] | | | | + + + + + + | MCV | 106.0 (H)Comment: | 80.0 - 100.0 fl | EXTERNAL | | | | Testing performed at | | LAB | | | | [facility], [address] | | | | | | [place] | | | | | | [address] | | | | + + + + + + | MCH | 35.2 (H)Comment: Testing | 27.0 - 34.0 pg | EXTERNAL | | | | performed at [facility], [address] | | LAB | | | | [address], | | | | | | [place] [address] | | | | + + + + + + | MCHC | 33.2Comment: Testing | 32.0 - 35.5 | EXTERNAL | | | | performed at [facility], [address] | g/dL | LAB | | | | [address], | | | | | | [place] [address] | | | | + + + + + + | RDW-CV | 53.4 (H)Comment: Testing | 37 - 53 fl | EXTERNAL | | | | performed at [facility], [address] | | LAB | | | | [address], | | | | | | [place] [address] | | | | + + + + + + | Platelet | 216Comment: Testing | 150 - 400 K/uL | EXTERNAL | | | Count | performed at [facility], [address] | | LAB | | | Plasma | [address], | | | | | | [place] [address] | | | | + + + + + + | MPV | 10.5Comment: Testing | fl | EXTERNAL | | | | performed at [facility], [address] | | LAB | | | | [address], | | | | | | [place] [address] | | | | + + + + + + | Differentia | MANUALComment: Testing | | EXTERNAL | | | l Type | performed at [facility], [address] | | LAB | | | | [address], | | | | | | [place], [place] [address] | | | | + + + + + + | Segmented | 35Comment: Testing | % | EXTERNAL | | | Neutrophils | performed at [facility], [address] | | LAB | | | Manual | [address], | | | | | | [place], [place] [address] | | | | + + + + + + | % Bands | 1Comment: Testing | % | EXTERNAL | | | | performed at [facility], [address] | | LAB | | | | [address], | | | | | | [place], [place] [address] | | | | + + + + + + | Lymphocytes | 44Comment: Testing | % | EXTERNAL | | | Manual | performed at [facility], [address] | | LAB | | | | [address], | | | | | | [place] [address] | | | | + + + + + + | Monocytes | 12Comment: Testing | % | EXTERNAL | | | Manual | performed at [facility], [address] | | LAB | | | | [address], | | | | | | [place] [address] | | | | + + + + + + | Eosinophils | 8Comment: Testing | % | EXTERNAL | | | Manual | performed at [facility], [address] | | LAB | | | | [address], | | | | | | [place] [address] | | | | + + + + + + | Absolute | 3.08Comment: Testing | 1.90 - 7.40 | EXTERNAL | | | Neutrophils | performed at [facility], [address] | K/uL | LAB | | | | [address], | | | | | | [place] [address] | | | | + + + + + + | Bands | 0.09Comment: Testing | 0.00 - 0.20 | EXTERNAL | | | Manual | performed at [facility], [address] | K/uL | LAB | | | | [address], | | | | | | [place] [address] | | | | + + + + + + | Absolute | 3.88Comment: Testing | 1.00 - 3.90 | EXTERNAL | | | Lymphocytes | performed at [facility], [address] | K/uL | LAB | | | | [address], | | | | | | [place] [address] | | | | + + + + + + | Absolute | 1.06 (H)Comment: Testing | 0.00 - 0.80 | EXTERNAL | | | Monocytes | performed at [facility], [address] | K/uL | LAB | | | | [address], | | | | | | [place] [address] | | | | + + + + + + | Absolute | 0.70 (H)Comment: Testing | 0.00 - 0.50 | EXTERNAL | | | Eosinophils | performed at [facility], [address] | K/uL | LAB | | | | [facility], | | | | | | [place] [address] | | | | + + + + + + | RBC | NORMAL PLT MORPHComment: | | EXTERNAL | | | Morphology | NORMAL RBC MORPHTesting | | LAB | | | | performed at [facility], [address] | | | | | | [address] [facility], | | | | | | [place] [address] | | | | + + + [...] | | | | performed at [facility], [address] | | LAB | | | | [address], | | | | | | [place] [address] | | | | + + + [...] | | | | performed at [facility], [address] | | LAB | | | | [address], | | | | | | [place] [address] | | | | + + + [...] | | | | | [place] [address] | | | | + + + + + + | K | 4.0Comment: Testing | 3.5 - 4.9 | EXTERNAL | | | | performed at [facility], [address] | mmol/L | LAB | | | | [address], | | | | | | [place] [address] | | | | + + + + + + | Cl | 102Comment: Testing | 99 - 109 mmol/L | EXTERNAL | | | | performed at [facility], [address] | | LAB | | | | [address], | | | | | | [place] [address] | | | | + + + + + + | CO2 | 33 (H)Comment: Testing | 23 - 32 mmol/L | EXTERNAL | | | | performed at [facility], [address] | | LAB | | | | [address], | | | | | | [place] [address] | | | | + + + + + + | Anion Gap | 5Comment: Testing | 5 - 20 mmol/L | EXTERNAL | | | | performed at [facility], [address] | | LAB | | | | [address], | | | | | | [place] [address] | | | | + + + + + + | Glucose, | 105 (H)Comment: Testing | 65 - 99 mg/dL | EXTERNAL | | | Fasting | performed at [facility], [address] | | LAB | | | | [address], | | | | | | [place] [address] | | | | + + + + + + | BUN | 9Comment: Testing | 8 - 25 mg/dL | EXTERNAL | | | | performed at [facility], [address] | | LAB | | | | [address], | | | | | | [place] [address] | | | | + + + + + + | Creatinine | 0.82Comment: Testing | 0.50 - 1.00 | EXTERNAL | | | | performed at [facility], [address] | mg/dL | LAB | | | | [address], | | | | | | [place] [address] | | | | + + + + + + | BUN/Creatin | 11Comment: Testing | | EXTERNAL | | | ine Ratio | performed at [facility], [address] | | LAB | | | | [address], | | | | | | [place] [address] | | | | + + + + + + | Calcium | 8.5Comment: Testing | 8.5 - 10.5 | EXTERNAL | | | | performed at [facility], [address] | mg/dL | LAB | | | | [address], | | | | | | [place] [address] | | | | + + + + + + | Protein, | 6.3Comment: Testing | 6.3 - 8.2 g/dL | EXTERNAL | | | Total | performed at [facility], [address] | | LAB | | | | [address], | | | | | | [place] [address] | | | | + + + + + + | Albumin | 2.8 (L)Comment: Testing | 3.3 - 4.8 g/dL | EXTERNAL | | | | performed at [facility], [address] | | LAB | | | | [address], | | | | | | [place] [address] | | | | + + + + + + | Globulin | 3.5Comment: Testing | 1.3 - 4.9 g/dL | EXTERNAL | | | | performed at [facility], [address] | | LAB | | | | [address], | | | | | | [place] [address] | | | | + + + + + + | A/G Ratio | 0.8 (L)Comment: Testing | 1.0 - 2.4 | EXTERNAL | | | | performed at [facility], [address] | | LAB | | | | [address], | | | | | | [place] [address] | | | | + + + + + + | Bilirubin | 0.5Comment: Testing | 0.1 - 1.5 mg/dL | EXTERNAL | | | Total | performed at [facility], [address] | | LAB | | | | [address], | | | | | | [place] [address] | | | | + + + + + + | ALP, | 102Comment: Testing | 35 - 115 U/L | EXTERNAL | | | External | performed at [facility], [address] | | LAB | | | | [address], | | | | | | [place] [address] | | | | + + + + + + | AST | 53 (H)Comment: Testing | 10 - 45 U/L | EXTERNAL | | | | performed at [facility], [address] | | LAB | | | | [address], | | | | | | [place] [address] | | | | + + + + + + | ALT | 21Comment: Testing | 10 - 65 U/L | EXTERNAL | | | | performed at [facility], [address] | | LAB | | | | [address], | | | | | | [place] [address] | | | | + + + [...] | | | | | [place] [address] | | | | + + + [...] | LAB | | | | [address];[place], [place] | | | | | | [address] | | | | + + + [...] [facility] [place];[facility] | | LAB | | | | [facility];[place], [place] | | | | | | [address] | | | | + + + [...] | | | | performed at [facility], [address] | K/uL | LAB | | | | [address], | | | | | | [place] [address] | | | | + + + + + + | Red Blood | 2.78 (L)Comment: Testing | 3.70 - 5.10 | EXTERNAL | | | Cells | performed at [facility], [address] | M/uL | LAB | | | Counted | [address], | | | | | | [place] [address] | | | | + + + + + + | Hemoglobin | 9.7 (L)Comment: Testing | 11.3 - 15.5 | EXTERNAL | | | | performed at [facility], [address] | g/dL | LAB | | | | [address], | | | | | | [place] [address] | | | | + + + + + + | Hematocrit, | 29.6 (L)Comment: Testing | 34.0 - 46.0 % | EXTERNAL | | | POC | performed at [facility], [address] | | LAB | | | | [address], | | | | | | [place] [address] | | | | + + + + + + | MCV | 106.3 (H)Comment: | 80.0 - 100.0 fl | EXTERNAL | | | | Testing performed at | | LAB | | | | [facility], [address] | | | | | | [place] | | | | | | [address] | | | | + + + + + + | MCH | 34.8 (H)Comment: Testing | 27.0 - 34.0 pg | EXTERNAL | | | | performed at [facility], [address] | | LAB | | | | [address], | | | | | | [place] [address] | | | | + + + + + + | MCHC | 32.8Comment: Testing | 32.0 - 35.5 | EXTERNAL | | | | performed at [facility], [address] | g/dL | LAB | | | | [address], | | | | | | [place] [address] | | | | + + + + + + | RDW-CV | 53.8 (H)Comment: Testing | 37 - 53 fl | EXTERNAL | | | | performed at [facility], [address] | | LAB | | | | [address], | | | | | | [place] [address] | | | | + + + + + + | Platelet | 181Comment: Testing | 150 - 400 K/uL | EXTERNAL | | | Count | performed at [facility], [address] | | LAB | | | Plasma | [address], | | | | | | [place] [address] | | | | + + + + + + | MPV | 11.3Comment: Testing | fl | EXTERNAL | | | | performed at [facility], [address] | | LAB | | | | [address], | | | | | | [place] [address] | | | | + + + + + + | Differentia | MANUALComment: Testing | | EXTERNAL | | | l Type | performed at [facility], [address] | | LAB | | | | [address], | | | | | | [place] [address] | | | | + + + + + + | Segmented | 45Comment: Testing | % | EXTERNAL | | | Neutrophils | performed at [facility], [address] | | LAB | | | Manual | [address], | | | | | | [place] [address] | | | | + + + + + + | % Bands | 1Comment: Testing | % | EXTERNAL | | | | performed at [facility], [address] | | LAB | | | | [address], | | | | | | [place] [address] | | | | + + + + + + | Lymphocytes | 35Comment: Testing | % | EXTERNAL | | | Manual | performed at [facility], [address] | | LAB | | | | [address], | | | | | | [place] [address] | | | | + + + + + + | Monocytes | 11Comment: Testing | % | EXTERNAL | | | Manual | performed at [facility], [address] | | LAB | | | | [address], | | | | | | [place] [address] | | | | + + + + + + | Eosinophils | 8Comment: Testing | % | EXTERNAL | | | Manual | performed at [facility], [address] | | LAB | | | | [address], | | | | | | [place] [address] | | | | + + + + + + | Absolute | 3.85Comment: Testing | 1.90 - 7.40 | EXTERNAL | | | Neutrophils | performed at [facility], [address] | K/uL | LAB | | | | [address], | | | | | | [place] [address] | | | | + + + + + + | Bands | 0.09Comment: Testing | 0.00 - 0.20 | EXTERNAL | | | Manual | performed at [facility], [address] | K/uL | LAB | | | | [address], | | | | | | [place] [address] | | | | + + + + + + | Absolute | 3.01Comment: Testing | 1.00 - 3.90 | EXTERNAL | | | Lymphocytes | performed at [facility], [address] | K/uL | LAB | | | | [address], | | | | | | [place] [address] | | | | + + + + + + | Absolute | 0.95 (H)Comment: Testing | 0.00 - 0.80 | EXTERNAL | | | Monocytes | performed at [facility], [address] | K/uL | LAB | | | | [address], | | | | | | [place] [address] | | | | + + + + + + | Absolute | 0.69 (H)Comment: Testing | 0.00 - 0.50 | EXTERNAL | | | Eosinophils | performed at [facility], [address] | K/uL | LAB | | | | [address], | | | | | | [place] [address] | | | | + + + + + + | RBC | 2+Comment: MACRONORMAL | | EXTERNAL | | | Morphology | PLT MORPHTesting | | LAB | | | | performed at [facility], [address] | | | | | | [address], | | | | | | [place] [address] | | | | | | | [...] | | | | performed at [facility], [address] | | LAB | | | | [facility], | | | | | | [place] [address] | | | | + + + [...] | | | | | [place] [address] | | | | + + + [...] | | | | | [place] [address] | | | | + + + + + + | K | 3.2 (L)Comment: Testing | 3.5 - 4.9 | EXTERNAL | | | | performed at [facility], [address] | mmol/L | LAB | | | | [address], | | | | | | [place] [address] | | | | + + + + + + | Cl | 103Comment: Testing | 99 - 109 mmol/L | EXTERNAL | | | | performed at [facility], [address] | | LAB | | | | [address], | | | | | | [place] [address] | | | | + + + + + + | CO2 | 31Comment: Testing | 23 - 32 mmol/L | EXTERNAL | | | | performed at [facility], [address] | | LAB | | | | [address], | | | | | | [place] [address] | | | | + + + + + + | Anion Gap | 7Comment: Testing | 5 - 20 mmol/L | EXTERNAL | | | | performed at [facility], [address] | | LAB | | | | [address], | | | | | | [place] [address] | | | | + + + + + + | Glucose, | 104 (H)Comment: Testing | 65 - 99 mg/dL | EXTERNAL | | | Fasting | performed at [facility], [address] | | LAB | | | | [address], | | | | | | [place] [address] | | | | + + + + + + | BUN | 10Comment: Testing | 8 - 25 mg/dL | EXTERNAL | | | | performed at [facility], [address] | | LAB | | | | [address], | | | | | | [place] [address] | | | | + + + + + + | Creatinine | 0.83Comment: Testing | 0.50 - 1.00 | EXTERNAL | | | | performed at [facility], [address] | mg/dL | LAB | | | | [address], | | | | | | [place] [address] | | | | + + + + + + | BUN/Creatin | 12Comment: Testing | | EXTERNAL | | | ine Ratio | performed at [facility], [address] | | LAB | | | | [address], | | | | | | [place] [address] | | | | + + + + + + | Calcium | 8.2 (L)Comment: Testing | 8.5 - 10.5 | EXTERNAL | | | | performed at [facility], [address] | mg/dL | LAB | | | | [address], | | | | | | [place] [address] | | | | + + + + + + | Protein, | 6.2 (L)Comment: Testing | 6.3 - 8.2 g/dL | EXTERNAL | | | Total | performed at [facility], [address] | | LAB | | | | [address], | | | | | | [place] [address] | | | | + + + + + + | Albumin | 2.7 (L)Comment: Testing | 3.3 - 4.8 g/dL | EXTERNAL | | | | performed at [facility], [address] | | LAB | | | [address], | | | | | | [place] [address] | | | | + + + + + + | Globulin | 3.5Comment: Testing | 1.3 - 4.9 g/dL | EXTERNAL | | | | performed at [facility], [address] | | LAB | | | | [address], | | | | | | [place] [address] | | | | + + + + + + | A/G Ratio | 0.8 (L)Comment: Testing | 1.0 - 2.4 | EXTERNAL | | | | performed at [facility], [address] | | LAB | | | | [address], | | | | | | [place] [address] | | | | + + + + + + | Bilirubin | 0.5Comment: Testing | 0.1 - 1.5 mg/dL | EXTERNAL | | | Total | performed at [facility], [address] | | LAB | | | | [address], | | | | | | [place] [address] | | | | + + + + + + | ALP, | 98Comment: Testing | 35 - 115 U/L | EXTERNAL | | | External | performed at [facility], [address] | | LAB | | | | [address], | | | | | | [place] [address] | | | | + + + + + + | AST | 35Comment: Testing | 10 - 45 U/L | EXTERNAL | | | | performed at [facility], [address] | | LAB | | | | [address], | | | | | | [place] [address] | | | | + + + + + + | ALT | 15Comment: Testing | 10 - 65 U/L | EXTERNAL | | | | performed at [facility], [address] | | LAB | | | | [address], | | | | | | [place] [address] | | | | + + + [...] | | | | | at [facility], [address] | | | | | | [address], | | | | | | [place] [address] | | | | + + + [...] | | | | | [place] [address] | | | | + + + [...] | | | B-12 | performed at [facility], [address] | pg/mL | LAB | | | | [address], | | | | | | [place] [address] | | | | + + + [...] | | | | performed at [facility], [address] | K/uL | LAB | | | | [address], | | | | | | [place] [address] | | | | + + + + + + | Red Blood | 2.72 (L)Comment: Testing | 3.70 - 5.10 | EXTERNAL | | | Cells | performed at [facility], [address] | M/uL | LAB | | | Counted | [address], | | | | | | [place] [address] | | | | + + + + + + | Hemoglobin | 9.4 (L)Comment: Testing | 11.3 - 15.5 | EXTERNAL | | | | performed at [facility], [address] | g/dL | LAB | | | | [address], | | | | | | [place] [address] | | | | + + + + + + | Hematocrit, | 29.1 (L)Comment: Testing | 34.0 - 46.0 % | EXTERNAL | | | POC | performed at [facility], [address] | | LAB | | | | [address], | | | | | | [place] [address] | | | | + + + + + + | MCV | 107.3 (H)Comment: | 80.0 - 100.0 fl | EXTERNAL | | | | Testing performed at | | LAB | | | | [facility], [address] [facility] | | | | | | [place] | | | | | | [address] | | | | + + + + + + | MCH | 34.6 (H)Comment: Testing | 27.0 - 34.0 pg | EXTERNAL | | | | performed at [facility], [address] | | LAB | | | | [address], | | | | | | [place] [address] | | | | + + + + + + | MCHC | 32.2Comment: Testing | 32.0 - 35.5 | EXTERNAL | | | | performed at [facility], [address] | g/dL | LAB | | | | [address], | | | | | | [place] [address] | | | | + + + + + + | RDW-CV | 57.3 (H)Comment: Testing | 37 - 53 fl | EXTERNAL | | | | performed at [facility], [address] | | LAB | | | | [address], | | | | | | [place] [address] | | | | + + + + + + | Platelet | 174Comment: Testing | 150 - 400 K/uL | EXTERNAL | | | Count | performed at [facility], [address] | | LAB | | | Plasma | [address], | | | | | | [place] [address] | | | | + + + + + + | MPV | 10.9Comment: Testing | fl | EXTERNAL | | | | performed at [facility], [address] | | LAB | | | | [address], | | | | | | [place] [address] | | | | + + + + + + | Differentia | MANUALComment: Testing | | EXTERNAL | | | l Type | performed at [facility], [address] | | LAB | | | | [address], | | | | | | [place] [address] | | | | + + + + + + | Segmented | 45Comment: Testing | % | EXTERNAL | | | Neutrophils | performed at [facility], [address] | | LAB | | | Manual | [address], | | | | | | [place] [address] | | | | + + + [...] | | | | | [place] [address] | | | | + + + + + + | Monocytes | 11Comment: Testing | % | EXTERNAL | | | Manual | performed at [facility], [address] | | LAB | | | | [address], | | | | | | [place] [address] | | | | + + + + + + | Eosinophils | 9Comment: Testing | % | EXTERNAL | | | Manual | performed at [facility], [address] | | LAB | | | | [address], | | | | | | [place] [address] | | | | + + + + + + | Absolute | 3.77Comment: Testing | 1.90 - 7.40 | EXTERNAL | | | Neutrophils | performed at [facility], [address] | K/uL | LAB | | | | [address], | | | | | | [place] [address] | | | | + + + + + + | Bands | 0.08Comment: Testing | 0.00 - 0.20 | EXTERNAL | | | Manual | performed at [facility], [address] | K/uL | LAB | | | | [address], | | | | | | [place] [address] | | | | + + + + + + | Absolute | 2.84Comment: Testing | 1.00 - 3.90 | EXTERNAL | | | Lymphocytes | performed at [facility], [address] | K/uL | LAB | | | | [address], | | | | | | [place] [address] | | | | + + + + + + | Absolute | 0.92 (H)Comment: Testing | 0.00 - 0.80 | EXTERNAL | | | Monocytes | performed at [facility], [address] | K/uL | LAB | | | | [address], | | | | | | [place] [address] | | | | + + + + + + | Absolute | 0.75 (H)Comment: Testing | 0.00 - 0.50 | EXTERNAL | | | Eosinophils | performed at [facility], [address] | K/uL | LAB | | | | [address], | | | | | | [place] [address] | | | | + + + + + + | RBC | NORMAL PLT MORPHComment: | | EXTERNAL | | | Morphology | NORMAL RBC MORPHTesting | | LAB | | | | performed at [facility], [address] | | | | | | [address], | | | | | | [place] [address] | | | | + + + [...] | | | | performed at [facility], [address] | | LAB | | | | [address], | | | | | | [place] [address] | | | | + + + [...] | | | | | [place] [address] | | | | + + + [...] | | | | | [place] [address] | | | | + + + + + + | K | 3.8Comment: Testing | 3.5 - 4.9 | EXTERNAL | | | | performed at [facility], [address] | mmol/L | LAB | | | | [address], | | | | | | [place] [address] | | | | + + + + + + | Cl | 111 (H)Comment: Testing | 99 - 109 mmol/L | EXTERNAL | | | | performed at [facility], [address] | | LAB | | | | [address], | | | | | | [place] [address] | | | | + + + + + + | CO2 | 25Comment: Testing | 23 - 32 mmol/L | EXTERNAL | | | | performed at [facility], [address] | | LAB | | | | [address], | | | | | | [place] [address] | | | | + + + + + + | Anion Gap | 5Comment: Testing | 5 - 20 mmol/L | EXTERNAL | | | | performed at [facility], [address] | | LAB | | | | [address], | | | | | | [place] [address] | | | | + + + + + + | Glucose, | 112 (H)Comment: Testing | 65 - 99 mg/dL | EXTERNAL | | | Fasting | performed at [facility], [address] | | LAB | | | | [address], | | | | | | [place] [address] | | | | + + + + + + | BUN | 13Comment: Testing | 8 - 25 mg/dL | EXTERNAL | | | | performed at [facility], [address] | | LAB | | | | [address], | | | | | | [place] [address] | | | | + + + + + + | Creatinine | 0.74Comment: Testing | 0.50 - 1.00 | EXTERNAL | | | | performed at [facility], [address] | mg/dL | LAB | | | | [address], | | | | | | [place] [address] | | | | + + + + + + | BUN/Creatin | 18Comment: Testing | | EXTERNAL | | | ine Ratio | performed at [facility], [address] | | LAB | | | | [address], | | | | | | [place] [address] | | | | + + + + + + | Calcium | 8.0 (L)Comment: Testing | 8.5 - 10.5 | EXTERNAL | | | | performed at [facility], [address] | mg/dL | LAB | | | | [address], | | | | | | [place] [address] | | | | + + + + + + | Protein, | 5.9 (L)Comment: Testing | 6.3 - 8.2 g/dL | EXTERNAL | | | Total | performed at [facility], [address] | | LAB | | | | [address], | | | | | | [place] [address] | | | | + + + + + + | Albumin | 2.6 (L)Comment: Testing | 3.3 - 4.8 g/dL | EXTERNAL | | | | performed at [facility], [address] | | LAB | | | | [address], | | | | | | [place] [address] | | | | + + + + + + | Globulin | 3.3Comment: Testing | 1.3 - 4.9 g/dL | EXTERNAL | | | | performed at [facility], [address] | | LAB | | | | [address], | | | | | | [place] [address] | | | | + + + + + + | A/G Ratio | 0.8 (L)Comment: Testing | 1.0 - 2.4 | EXTERNAL | | | | performed at [facility], [address] | | LAB | | | | [address], | | | | | | [place] [address] | | | | + + + + + + | Bilirubin | 0.4Comment: Testing | 0.1 - 1.5 mg/dL | EXTERNAL | | | Total | performed at [facility], [address] | | LAB | | | | [address], | | | | | | [place] [address] | | | | + + + + + + | ALP, | 93Comment: Testing | 35 - 115 U/L | EXTERNAL | | | External | performed at [facility], [address] | | LAB | | | | [address], | | | | | | [place] [address] | | | | + + + + + + | AST | 23Comment: Testing | 10 - 45 U/L | EXTERNAL | | | | performed at [facility], [address] | | LAB | | | | [address], | | | | | | [place] [address] | | | | + + + + + + | ALT | 14Comment: Testing | 10 - 65 U/L | EXTERNAL | | | | performed at [facility], [address] | | LAB | | | | [facility], | | | | | | [place] [address] | | | | + + + [...] W | | | | | | [facility], | | | | | | [place] [address] | | | | + + + [...] | | | | | [place] [address] | | | | + + + + + + | Red Blood | 2.78 (L)Comment: Testing | 3.70 - 5.10 | EXTERNAL | | | Cells | performed at [facility], [address] | M/uL | LAB | | | Counted | [address], | | | | | | [place] [address] | | | | + + + + + + | Hemoglobin | 9.7 (L)Comment: Testing | 11.3 - 15.5 | EXTERNAL | | | | performed at [facility], [address] | g/dL | LAB | | | | [address], | | | | | | [place] [address] | | | | + + + + + + | Hematocrit, | 29.9 (L)Comment: Testing | 34.0 - 46.0 % | EXTERNAL | | | POC | performed at [facility], [address] | | LAB | | | | [address], | | | | | | [place] [address] | | | | + + + + + + | MCV | 107.5 (H)Comment: | 80.0 - 100.0 fl | EXTERNAL | | | | Testing performed at | | LAB | | | | [facility], [address] | | | | | | [place] | | | | | | [address] | | | | + + + + + + | MCH | 34.9 (H)Comment: Testing | 27.0 - 34.0 pg | EXTERNAL | | | | performed at [facility], [address] | | LAB | | | | [address], | | | | | | [place] [address] | | | | + + + + + + | MCHC | 32.5Comment: Testing | 32.0 - 35.5 | EXTERNAL | | | | performed at [facility], [address] | g/dL | LAB | | | | [address], | | | | | | [place] [address] | | | | + + + + + + | RDW-CV | 57.3 (H)Comment: Testing | 37 - 53 fl | EXTERNAL | | | | performed at [facility], [address] | | LAB | | | | [address], | | | | | | [place] [address] | | | | + + + + + + | Platelet | 162Comment: Testing | 150 - 400 K/uL | EXTERNAL | | | Count | performed at [facility], [address] | | LAB | | | Plasma | [address], | | | | | | [place] [address] | | | | + + + + + + | MPV | 11.6Comment: Testing | fl | EXTERNAL | | | | performed at [facility], [address] | | LAB | | | | [address], | | | | | | [place] [address] | | | | + + + + + + | Differentia | MANUALComment: Testing | | EXTERNAL | | | l Type | performed at [facility], [address] | | LAB | | | | [address], | | | | | | [place] [address] | | | | + + + + + + | Segmented | 31Comment: Testing | % | EXTERNAL | | | Neutrophils | performed at [facility], [address] | | LAB | | | Manual | [address], | | | | | | [place] [address] | | | | + + + + + + | Lymphocytes | 52Comment: Testing | % | EXTERNAL | | | Manual | performed at [facility], [address] | | LAB | | | | [address], | | | | | | [place] [address] | | | | + + + + + + | Monocytes | 11Comment: Testing | % | EXTERNAL | | | Manual | performed at [facility], [address] | | LAB | | | | [address], | | | | | | [place] [address] | | | | + + + + + + | Eosinophils | 6Comment: Testing | % | EXTERNAL | | | Manual | performed at [facility], [address] | | LAB | | | | [address], | | | | | | [place] [address] | | | | + + + + + + | Absolute | 3.19Comment: Testing | 1.90 - 7.40 | EXTERNAL | | | Neutrophils | performed at [facility], [address] | [address] | LAB | | | | [address], | | | | | | [place] [address] | | | | + + + + + + | Absolute | 5.36 (H)Comment: Testing | 1.00 - 3.90 | EXTERNAL | | | Lymphocytes | performed at [facility], [address] | [address] | LAB | | | | [address], | | | | | | [place] [address] | | | | + + + + + + | Absolute | 1.13 (H)Comment: Testing | 0.00 - 0.80 | EXTERNAL | | | Monocytes | performed at [facility], [address] | LAB | | | | [address], | | | | | | [place] [address] | | | | + + + + + + | Absolute | 0.62 (H)Comment: Testing | 0.00 - 0.50 | EXTERNAL | | | Eosinophils | performed at [facility], [address] | LAB | | | | [address], | | | | | | [place] [address] | | | | + + + + + + | RBC | 2+Comment: MACRONORMAL | | EXTERNAL | | | Morphology | PLT MORPHTesting | | LAB | | | | performed at [facility], [address] | | | | | | [address], | | | | | | [place] [address] | | | | | | | [...] | | | | performed at [facility], [address] | | LAB | | | | [address], | | | | | | [place] [address] | | | | + + + [...] | | | | performed at [facility], [address] | | LAB | | | | [address], | | | | | | [place] [address] | | | | + + + [...] [address], | | | | | | [place] [address] | | | | + + + + + + | Cl | 112 (H)Comment: Testing | 99 - 109 mmol/L | EXTERNAL | | | | performed at [facility], [address] | | LAB | | | | [address], | | | | | | [place] [address] | | | | + + + + + + | CO2 | 27Comment: Testing | 23 - 32 mmol/L | EXTERNAL | | | | performed at [facility], [address] | | LAB | | | | [address], | | | | | | [place] [address] | | | | + + + + + + | Anion Gap | 4 (L)Comment: Testing | 5 - 20 mmol/L | EXTERNAL | | | | performed at [facility], [address] | | LAB | | | | [address], | | | | | | [place] [address] | | | | + + + + + + | Glucose, | 94Comment: Testing | 65 - 99 mg/dL | EXTERNAL | | | Fasting | performed at [facility], [address] | | LAB | | | | [address], | | | | | | [place] [address] | | | | + + + + + + | BUN | 19Comment: Testing | 8 - 25 mg/dL | EXTERNAL | | | | performed at [facility], [address] | | LAB | | | | [address], | | | | | | [place] [address] | | | | + + + + + + | Creatinine | 1.01 (H)Comment: Testing | 0.50 - 1.00 | EXTERNAL | | | | performed at [facility], [address] | mg/dL | LAB | | | | [address], | | | | | | [place] [address] | | | | + + + + + + | BUN/Creatin | 19Comment: Testing | | EXTERNAL | | | ine Ratio | performed at [facility], [address] | | LAB | | | | [address], | | | | | | [place] [address] | | | | + + + + + + | Calcium | 8.1 (L)Comment: Testing | 8.5 - 10.5 | EXTERNAL | | | | performed at [facility], [address] | mg/dL | LAB | | | | [address], | | | | | | [place] [address] | | | | + + + + + + | Protein, | 5.9 (L)Comment: Testing | 6.3 - 8.2 g/dL | EXTERNAL | | | Total | performed at [facility], [address] | | LAB | | | | [address], | | | | | | [place] [address] | | | | + + + + + + | Albumin | 2.5 (L)Comment: Testing | 3.3 - 4.8 g/dL | EXTERNAL | | | | performed at [facility], [address] | | LAB | | | | [address], | | | | | | [place] [address] | | | | + + + + + + | Globulin | 3.4Comment: Testing | 1.3 - 4.9 g/dL | EXTERNAL | | | | performed at [facility], [address] | | LAB | | | | [address], | | | | | | [place] [address] | | | | + + + + + + | A/G Ratio | 0.7 (L)Comment: Testing | 1.0 - 2.4 | EXTERNAL | | | | performed at [facility], [address] | | LAB | | | | [address], | | | | | | [place] [address] | | | | + + + + + + | Bilirubin | 0.3Comment: Testing | 0.1 - 1.5 mg/dL | EXTERNAL | | | Total | performed at [facility], [address] | | LAB | | | | [address], | | | | | | [place] [address] | | | | + + + + + + | ALP, | 98Comment: Testing | 35 - 115 U/L | EXTERNAL | | | External | performed at [facility], [address] | | LAB | | | | [address], | | | | | | [place] [address] | | | | + + + + + + | AST | 24Comment: Testing | 10 - 45 U/L | EXTERNAL | | | | performed at [facility], [address] | | LAB | | | | [address], | | | | | | [place] [address] | | | | + + + + + + | ALT | 14Comment: Testing | 10 - 65 U/L | EXTERNAL | | | | performed at [facility], [address] | | LAB | | | | [address], | | | | | | [place] [address] | | | | + + + [...] | | | | | at [facility], [address] | | | | | | [address], | | | | | | [place] [address] | | | | + + + [...] L | LAB | | | | [facility], [address] [facility] | | | | | | [place] | | | | | | [address] | | | | + + +---- + + + | Red Blood | 2.93 (L)Comment: Testing | 3.7 0 - 5.10 | EXTERNAL | | | Cells | performed at [facility], [address] | M/u L | LAB | | | Counted | [address], | | | | | | [place] [address] | | | | + + +---- + + + | Hemoglobin | 10.2 (L)Comment: Testing | 11. 3 - 15.5 | EXTERNAL | | | | performed at [facility], [address] | g/d L | LAB | | | | [address], | | | | | | [place] [address] | | | | + + +---- + + + | Hematocrit, | 31.6 (L)Comment: Testing | 34. 0 - 46.0 % | EXTERNAL | | | POC | performed at [facility], [address] | | LAB | | | | [address], | | | | | | [place] [address] | | | | + + +---- + + + | MCV | 107.8 (H)Comment: | 80. 0 - 100.0 fl | EXTERNAL | | | | Testing performed at | | LAB | | | | [facility], [address] | | | | | | [place] | | | | | | [address] | | | | + + +---- + + + | MCH | 34.8 (H)Comment: Testing | 27. 0 - 34.0 pg | EXTERNAL | | | | performed at [facility], [address] | | LAB | | | | [address], | | | | | | [place] [address] | | | | + + +---- + + + | MCHC | 32.3Comment: Testing | 32. 0 - 35.5 | EXTERNAL | | | | performed at [facility], [address] | g/d L | LAB | | | | [address], | | | | | | [place] [address] | | | | + + +---- + + + | RDW-CV | 57.3 (H)Comment: Testing | 37 - 53 fl | EXTERNAL | | | | performed at [facility], [address] | | LAB | | | | [address], | | | | | | [place] [address] | | | | + + +---- + + + | Platelet | 146 (L)Comment: Testing | 150 - 400 K/uL | EXTERNAL | | | Count | performed at [facility], [address] | | LAB | | | Plasma | [address], | | | | | | [place] [address] | | | | + + +---- + + + | MPV | 11.2Comment: Testing | fl | EXTERNAL | | | | performed at [facility], [address] | | LAB | | | | [address], | | | | | | [place] [address] | | | | + + +---- + + + | Differentia | MANUALComment: Testing | | EXTERNAL | | | l Type | performed at [facility], [address] | | LAB | | | | [address], | | | | | | [place] [address] | | | | + + +---- + + + | Segmented | 58Comment: Testing | % | EXTERNAL | | | Neutrophils | performed at [facility], [address] | | LAB | | | Manual | [address], | | | | | | [place] [address] | | | | + + +---- + + + | % Bands | 20Comment: Testing | % | EXTERNAL | | | | performed at [facility], [address] | | LAB | | | | [address], | | | | | | [place] [address] | | | | + + +---- + + + | Lymphocytes | 13Comment: Testing | % | EXTERNAL | | | Manual | performed at [facility], [address] | | LAB | | | | [address], | | | | | | [place] [address] | | | | + + +---- + + + | Monocytes | 7Comment: Testing | % | EXTERNAL | | | Manual | performed at [facility], [address] | | LAB | | | | [address], | | | | | | [place] [address] | | | | + + +---- + + + | Eosinophils | 2Comment: Testing | % | EXTERNAL | | | Manual | performed at [facility], [address] | | LAB | | | | [address], | | | | | | [place] [address] | | | | + + +---- + + + | Absolute | 9.23 (H)Comment: Testing | 1.9 0 - 7.40 | EXTERNAL | | | Neutrophils | performed at [facility], [address] | K/u L | LAB | | | | [address], | | | | | | [place] [address] | | | | + + +---- + + + | Bands | 3.18 (H)Comment: Testing | 0.0 0 - 0.20 | EXTERNAL | | | Manual | performed at [facility], [address] | K/u L | LAB | | | | [address], | | | | | | [place] [address] | | | | + + +---- + + + | Absolute | 2.07Comment: Testing | 1.0 0 - 3.90 | EXTERNAL | | | Lymphocytes | performed at [facility], [address] | K/u L | LAB | | | | [address], | | | | | | [place] [address] | | | | + + +---- + + + | Absolute | 1.11 (H)Comment: Testing | 0.0 0 - 0.80 | EXTERNAL | | | Monocytes | performed at [facility], [address] | K/u L | LAB | | | | [address], | | | | | | [place] [address] | | | | + + +---- + + + | Absolute | 0.32Comment: Testing | 0.0 0 - 0.50 | EXTERNAL | | | Eosinophils | performed at [facility], [address] | K/u L | LAB | | | | [address], | | | | | | [place] [address] | | | | + + +---- + + + | RBC | 2+Comment: | | EXTERNAL | | | Morphology | MACRO1+ANISONORMAL PLT | | LAB | | | | MORPHTesting performed | | | | | | at [facility], [address] | | | | | | [address], | | | | | | [place] [address] | | | | | |Testing performed at [facility], [address] [place] [address] | | | | | | | [...] | | | | performed at [facility], [address] | | LAB | | | | [address], | | | | | | [place] [address] | | | | + + + [...] | | | | performed at [facility], [address] | | LAB | | | | [address], | | | | | | [place] [address] | | | | + + + [...] | | | | | [place] [address] | | | | + + + + + + | K | 3.9Comment: Testing | 3.5 - 4.9 | EXTERNAL | | | | performed at [facility], [address] | mmol/L | LAB | | | | [address], | | | | | | [place] [address] | | | | + + + + + + | Cl | 109Comment: Testing | 99 - 109 mmol/L | EXTERNAL | | | | performed at [facility], [address] | | LAB | | | | [address], | | | | | | [place] [address] | | | | + + + + + + | CO2 | 24Comment: Testing | 23 - 32 mmol/L | EXTERNAL | | | | performed at [facility], [address] | | LAB | | | | [address], | | | | | | [place] [address] | | | | + + + + + + | Anion Gap | 8Comment: Testing | 5 - 20 mmol/L | EXTERNAL | | | | performed at [facility], [address] | | LAB | | | | [address], | | | | | | [place] [address] | | | | + + + + + + | Glucose, | 98Comment: Testing | 65 - 99 mg/dL | EXTERNAL | | | Fasting | performed at [facility], [address] | | LAB | | | | [address], | | | | | | [place] [address] | | | | + + + + + + | BUN | 25Comment: Testing | 8 - 25 mg/dL | EXTERNAL | | | | performed at [facility], [address] | | LAB | | | | [address], | | | | | | [place] [address] | | | | + + + + + + | Creatinine | 1.39 (H)Comment: Testing | 0.50 - 1.00 | EXTERNAL | | | | performed at [facility], [address] | mg/dL | LAB | | | | [address], | | | | | | [place] [address] | | | | + + + + + + | BUN/Creatin | 18Comment: Testing | | EXTERNAL | | | ine Ratio | performed at [facility], [address] | | LAB | | | | [address], | | | | | | [place] [address] | | | | + + + + + + | Calcium | 8.2 (L)Comment: Testing | 8.5 - 10.5 | EXTERNAL | | | | performed at [facility], [address] | mg/dL | LAB | | | | [address], | | | | | | [place] [address] | | | | + + + + + + | Protein, | 6.1 (L)Comment: Testing | 6.3 - 8.2 g/dL | EXTERNAL | | | Total | performed at [facility], [address] | | LAB | | | | [address], | | | | | | [place] [address] | | | | + + + + + + | Albumin | 2.4 (L)Comment: Testing | 3.3 - 4.8 g/dL | EXTERNAL | | | | performed at [facility], [address] | | LAB | | | | [address], | | | | | | [place] [address] | | | | + + + + + + | Globulin | 3.7Comment: Testing | 1.3 - 4.9 g/dL | EXTERNAL | | | | performed at [facility], [address] | | LAB | | | | [address], | | | | | | [place] [address] | | | | + + + + + + | A/G Ratio | 0.6 (L)Comment: Testing | 1.0 - 2.4 | EXTERNAL | | | | performed at [facility], [address] | | LAB | | | | [address], | | | | | | [place] [address] | | | | + + + + + + | Bilirubin | 0.4Comment: Testing | 0.1 - 1.5 mg/dL | EXTERNAL | | | Total | performed at [facility], [address] | | LAB | | | | [address], | | | | | | [place] [address] | | | | + + + + + + | ALP, | 111Comment: Testing | 35 - 115 U/L | EXTERNAL | | | External | performed at [facility], [address] | | LAB | | | | [address], | | | | | | [place] [address] | | | | + + + + + + | AST | 29Comment: Testing | 10 - 45 U/L | EXTERNAL | | | | performed at [facility], [address] | | LAB | | | | [address], | | | | | | [place] [address] | | | | + + + + + + | ALT | 14Comment: Testing | 10 - 65 U/L | EXTERNAL | | | | performed at [facility], [address] | | LAB | | | | [address], | | | | | | [place] [address] | | | | + + + [...] | | | | | [place] [address] | | | | + + + [...] K/uL | LAB | | | | [facility], [address] [facility] | | | | | | [place] | | | | | | [address] | | | | + + + + + + | Red Blood | 3.12 (L)Comment: Testing | 3.70 - 5.10 | EXTERNAL | | | Cells | performed at [facility], [address] | M/uL | LAB | | | Counted | [address], | | | | | | [place] [address] | | | | + + + + + + | Hemoglobin | 10.8 (L)Comment: Testing | 11.3 - 15.5 | EXTERNAL | | | | performed at [facility], [address] | g/dL | LAB | | | | [address], | | | | | | [place] [address] | | | | + + + + + + | Hematocrit, | 33.7 (L)Comment: Testing | 34.0 - 46.0 % | EXTERNAL | | | POC | performed at [facility], [address] | | LAB | | | | [address], | | | | | | [place] [address] | | | | + + + + + + | MCV | 108.0 (H)Comment: | 80.0 - 100.0 fl | EXTERNAL | | | | Testing performed at | | LAB | | | | [facility], [address] [facility] | | | | | | [place] | | | | | | [address] | | | | + + + + + + | MCH | 34.7 (H)Comment: Testing | 27.0 - 34.0 pg | EXTERNAL | | | | performed at [facility], [address] | | LAB | | | | [address], | | | | | | [place] [address] | | | | + + + + + + | MCHC | 32.1Comment: Testing | 32.0 - 35.5 | EXTERNAL | | | | performed at [facility], [address] | g/dL | LAB | | | | [address], | | | | | | [place] [address] | | | | + + + + + + | RDW-CV | 55.6 (H)Comment: Testing | 37 - 53 fl | EXTERNAL | | | | performed at [facility], [address] | | LAB | | | | [address], | | | | | | [place] [address] | | | | + + + + + + | Platelet | 153Comment: Testing | 150 - 400 K/uL | EXTERNAL | | | Count | performed at [facility], [address] | | LAB | | | Plasma | [address], | | | | | | [place] [address] | | | | + + + + + + | MPV | 11.2Comment: Testing | fl | EXTERNAL | | | | performed at [facility], [address] | | LAB | | | | [address], | | | | | | [place] [address] | | | | + + + + + + | Differentia | MANUALComment: Testing | | EXTERNAL | | | l Type | performed at [facility], [address] | | LAB | | | | [address], | | | | | | [place], [place] [address] | | | | + + + + + + | Segmented | 64Comment: Testing | % | EXTERNAL | | | Neutrophils | performed at [facility], [address] | | LAB | | | Manual | [address], | | | | | | [place] [address] | | | | + + + + + + | % Bands | 15Comment: Testing | % | EXTERNAL | | | | performed at [facility], [address] | | LAB | | | | [address], | | | | | | [place] [address] | | | | + + + + + + | % | 2Comment: Testing | % | EXTERNAL | | | Metamyelocy | performed at [facility], [address] | | LAB | | | [address] | [address], | | | | | | [place] [address] | | | | + + + + + + | Lymphocytes | 12Comment: Testing | % | EXTERNAL | | | Manual | performed at [facility], [address] | | LAB | | | | [address], | | | | | | [place] [address] | | | | + + + + + + | Monocytes | 6Comment: Testing | % | EXTERNAL | | | Manual | performed at [facility], [address] | | LAB | | | | [address], | | | | | | [place] [address] | | | | + + + + + + | Eosinophils | 1Comment: Testing | % | EXTERNAL | | | Manual | performed at [facility], [address] | | LAB | | | | [address], | | | | | | [place] [address] | | | | + + + + + + | Absolute | 11.48 (H)Comment: | 1.90 - 7.40 | EXTERNAL | | | Neutrophils | Testing performed at | K/uL | LAB | | | | [facility], [address] [facility] | | | | | | [place] | | | | | | [address] | | | | + + + + + + | Bands | 2.69 (H)Comment: Testing | 0.00 - 0.20 | EXTERNAL | | | Manual | performed at [facility], [address] | K/uL | LAB | | | | [address], | | | | | | [place] [address] | | | | + + + + + + | Absolute | 0.36 (H)Comment: Testing | K/uL | EXTERNAL | | | Metamyelocy | performed at [facility], [address] | | LAB | | | [address] | [address], | | | | | | [place] [address] | | | | + + + + + + | Absolute | 2.15Comment: Testing | 1.00 - 3.90 | EXTERNAL | | | Lymphocytes | performed at [facility], [address] | K/uL | LAB | | | | [address], | | | | | | [place] [address] | | | | + + + + + + | Absolute | 1.08 (H)Comment: Testing | 0.00 - 0.80 | EXTERNAL | | | Monocytes | performed at [facility], [address] | K/uL | LAB | | | | [address], | | | | | | [place] [address] | | | | + + + + + + | Absolute | 0.18Comment: Testing | 0.00 - 0.50 | EXTERNAL | | | Eosinophils | performed at [facility], [address] | K/uL | LAB | | | | [address], | | | | | | [place] [address] | | | | + + + + + + | RBC | 2+Comment: MACRONORMAL | | EXTERNAL | | | Morphology | PLT MORPHTesting | | LAB | | | | performed at [facility], [address] | | | | | | [address], | | | | | | [place] [address] | | | | | | | [...] [place] | | | | | | [address] | | | | + + + + + + | K | 3.8Comment: Testing | 3.5 - 4.9 | EXTERNAL | | | | performed at [facility];[address] | mmol/L | LAB | | | | [address];[place] | | | | | | [address] | | | | + + + + + + | Cl | 107Comment: Testing | 99 - 109 mmol/L | EXTERNAL | | | | performed at [facility];[address] | | LAB | | | | [address];[place] | | | | | | [address] | | | | + + + + + + | CO2 | 26Comment: Testing | 23 - 32 mmol/L | EXTERNAL | | | | performed at [facility];[address] | | LAB | | | | [address];[place] | | | | | | [address] | | | | + + + + + + | Anion Gap | 12Comment: Testing | 5 - 20 mmol/L | EXTERNAL | | | | performed at [facility];[address] | | LAB | | | | [address];[place] | | | | | | [address] | | | | + + + + + + | Glucose, | 127 (H)Comment: Testing | 65 - 99 mg/dL | EXTERNAL | | | Fasting | performed at [facility];[address] | | LAB | | | | [address];[place] | | | | | | [address] | | | | + + + + + + | BUN | 28 (H)Comment: Testing | 8 - 25 mg/dL | EXTERNAL | | | | performed at [facility];[address] | | LAB | | | | [address];[place] | | | | | | [address] | | | | + + + + + + | Creatinine | 1.8 (H)Comment: Testing | 0.50 - 1.00 | EXTERNAL | | | | performed at [facility];[address] | mg/dL | LAB | | | | [address];[place] | | | | | | [address] | | | | + + + + + + | BUN/Creatin | 16Comment: Testing | | EXTERNAL | | | ine Ratio | performed at [facility];[address] | | LAB | | | | [address];[place] | | | | | | [address] | | | | + + + + + + | Calcium | 7.6 (L)Comment: Testing | 8.5 - 10.5 | EXTERNAL | | | | performed at [facility];[address] | mg/dL | LAB | | | | [address];[place], [place] | | | | | | [address] | | | | + + + [...] [facility];[address] [place] [address] | | | | | | Blvd;[place] [address] | | | | + + + [...] [facility];[address] [place] [address] | | | | | | Blvd;[place] [address] | | | | + + + [...] L | LAB | | | | [facility], [address] | | | | | | [place] | | | | | | [address] | | | | + + +---- + + + | Red Blood | 3.07 (L)Comment: Testing | 3.7 0 - 5.10 | EXTERNAL | | | Cells | performed at [facility], [address] | M/u L | LAB | | | Counted | [address], | | | | | | [place] [address] | | | | + + +---- + + + | Hemoglobin | 10.8 (L)Comment: Testing | 11. 3 - 15.5 | EXTERNAL | | | | performed at [facility], [address] | g/d L | LAB | | | | [address] [place], | | | | | | [place] [address] | | | | + + +---- + + + | Hematocrit, | 32.7 (L)Comment: Testing | 34. 0 - 46.0 % | EXTERNAL | | | POC | performed at [facility], [address] | | LAB | | | | [address], | | | | | | [place] [address] | | | | + + +---- + + + | MCV | 106.4 (H)Comment: | 80. 0 - 100.0 fl | EXTERNAL | | | | Testing performed at | | LAB | | | | [facility], [address] | | | | | | [place] | | | | | | [address] | | | | + + +---- + + + | MCH | 35.1 (H)Comment: Testing | 27. 0 - 34.0 pg | EXTERNAL | | | | performed at [facility], [address] | | LAB | | | | [address], | | | | | | [place] [address] | | | | + + +---- + + + | MCHC | 33.0Comment: Testing | 32. 0 - 35.5 | EXTERNAL | | | | performed at [facility], [address] | g/d L | LAB | | | | [address] [place], | | | | | | [place] [address] | | | | + + +---- + + + | RDW-CV | 56.0 (H)Comment: Testing | 37 - 53 fl | EXTERNAL | | | | performed at [facility], [address] | | LAB | | | | [address], | | | | | | [place] [address] | | | | + + +---- + + + | Platelet | 151Comment: Testing | 150 - 400 K/uL | EXTERNAL | | | Count | performed at [facility], [address] | | LAB | | | Plasma | [address], | | | | | | [place] [address] | | | | + + +---- + + + | MPV | 11.7Comment: Testing | fl | EXTERNAL | | | | performed at [facility], [address] | | LAB | | | | [address], | | | | | | [place] [address] | | | | + + +---- + + + | Differentia | MANUALComment: Testing | | EXTERNAL | | | l Type | performed at [facility], [address] | | LAB | | | | [address], | | | | | | [place] [address] | | | | + + +---- + + + | Segmented | 57Comment: Testing | % | EXTERNAL | | | Neutrophils | performed at [facility], [address] | | LAB | | | Manual | [address], | | | | | | [place] [address] | | | | + + +---- + + + | % Bands | 26Comment: Testing | % | EXTERNAL | | | | performed at [facility], [address] | | LAB | | | | [address], | | | | | | [place] [address] | | | | + + +---- + + + | % | 4Comment: Testing | % | EXTERNAL | | | Metamyelocy | performed at [facility], [address] | | LAB | | | [address] | [address], | | | | | | [place] [address] | | | | + + +---- + + + | Lymphocytes | 9Comment: Testing | % | EXTERNAL | | | Manual | performed at [facility], [address] | | LAB | | | | [address], | | | | | | [place] [address] | | | | + + +---- + + + | Monocytes | 4Comment: Testing | % | EXTERNAL | | | Manual | performed at [facility], [address] | | LAB | | | | [facility] [address], | | | | | | [place] [address] | | | | + + +---- + + + | Absolute | 10.53 (H)Comment: | 1.9 0 - 7.40 | EXTERNAL | | | Neutrophils | Testing performed at | K/u L | LAB | | | | [facility], [address] | | | | | | [place] | | | | | | [address] | | | | + + +---- + + + | Bands | 4.80 (H)Comment: Testing | 0.0 0 - 0.20 | EXTERNAL | | | Manual | performed at [facility], [address] | K/u L | LAB | | | | [address], | | | | | | [place] [address] | | | | + + +---- + + + | Absolute | 0.74 (H)Comment: Testing | K/u L | EXTERNAL | | | Metamyelocy | performed at [facility], [address] | | LAB | | | [address] | [address], | | | | | | [place] [address] | | | | + + +---- + + + | Absolute | 1.66Comment: Testing | 1.0 0 - 3.90 | EXTERNAL | | | Lymphocytes | performed at [facility], [address] | K/u L | LAB | | | | [address], | | | | | | [place] [address] | | | | + + +---- + + + | Absolute | 0.74Comment: Testing | 0.0 0 - 0.80 | EXTERNAL | | | Monocytes | performed at [facility], [address] | K/u L | LAB | | | | [address], | | | | | | [place] [address] | | | | + + +---- + + + | RBC | 2+Comment: | | EXTERNAL | | | Morphology | MACRO1+ANISONORMAL PLT | | LAB | | | | MORPHTesting performed | | | | | | at [facility], [address] | | | | | | Marsha Santamaria, | | | | | | [place] [id number] | | | | | |Testing performed at [facility], [address] [place] [address] | | | | | | | [...] | LAB | | | | Tiera Santamaria;[place], [place] | | | | | | [address] | | | | + + + [...] | | | | | | [address];[place], [place] | | | | | | [address] | | | | + + + [...] | LAB | | | | Tiera Santamaria;[place] | | | | | | [address] | | | | + + + [...] Real | | | | | | [address] | | | | + + + [...] [place] | | | | | | [address] | | | | + + + + + + | Cl | 106Comment: Testing | 99 - 109 mmol/L | EXTERNAL | | | | performed at [facility] [place] [facility];[address] | | LAB | | | | [address];[place] | | | | | | [address] | | | | + + + + + + | CO2 | 24Comment: Testing | 23 - 32 mmol/L | EXTERNAL | | | | performed at [facility] [place];[address] | | LAB | | | | [address];[place] | | | | | | [address] | | | | + + + + + + | Anion Gap | 12Comment: Testing | 5 - 20 mmol/L | EXTERNAL | | | | performed at [facility] [place];[address] | | LAB | | | | [address];[place] | | | | | | [address] | | | | + + + + + + | Glucose, | 103 (H)Comment: Testing | 65 - 99 mg/dL | EXTERNAL | | | Fasting | performed at [facility] [place];[address] | | LAB | | | | [address];[place] | | | | | | [address] | | | | + + + + + + | BUN | 22Comment: Testing | 8 - 25 mg/dL | EXTERNAL | | | | performed at [facility] [place];[address] | | LAB | | | | [address];[place] | | | | | | [address] | | | | + + + + + + | Creatinine | 1.9 (H)Comment: Testing | 0.50 - 1.00 | EXTERNAL | | | | performed at [facility] [place];[address] | mg/dL | LAB | | | | [address];[place] | | | | | | [address] | | | | + + + + + + | BUN/Creatin | 12Comment: Testing | | EXTERNAL | | | ine Ratio | performed at [facility] [place];[address] | | LAB | | | | [address];[place] | | | | | | [address] | | | | + + + + + + | Calcium | 7.4 (L)Comment: Testing | 8.5 - 10.5 | EXTERNAL | | | | performed at [facility] [place];[address] | mg/dL | LAB | | | | [address];[place] | | | | | | [address] | | | | + + + + + + | Protein, | 6.5Comment: Testing | 6.3 - 8.2 g/dL | EXTERNAL | | | Total | performed at [facility] [place];[address] | | LAB | | | | [address];[place] | | | | | | [address] | | | | + + + + + + | Albumin | 2.2 (L)Comment: Testing | 3.3 - 4.8 g/dL | EXTERNAL | | | | performed at [facility] [place];[address] | | LAB | | | | [address];[place] | | | | | | [address] | | | | + + + + + + | Globulin | 4.4Comment: Testing | 1.3 - 4.9 g/dL | EXTERNAL | | | | performed at [facility] [place] [place];[address] | | LAB | | | | [address] [address];[place] | | | | | | [address] | | | | + + + + + + | A/G Ratio | 0.5 (L)Comment: Testing | 1.0 - 2.4 | EXTERNAL | | | | performed at [facility];[address] | | LAB | | | | [address];[place] | | | | | | [address] | | | | + + + + + + | Bilirubin | 0.5Comment: Testing | 0.1 - 1.5 mg/dL | EXTERNAL | | | Total | performed at [facility];888 | | LAB | | | | [address];[place] | | | | | | [address] | | | | + + + + + + | ALP, | 148 (H)Comment: Testing | 35 - 115 U/L | EXTERNAL | | | External | performed at [facility];888 | | LAB | | | | [address];[place] | | | | | | [address] | | | | + + + [...] Real | | | | | | [address] | | | | + + + + + + | ALT | 23Comment: Testing | 10 - 65 U/L | EXTERNAL | | | | performed at [facility];888 | | LAB | | | | [facility];[place], [place] | | | | | | [address] | | | | + + + [...] [facility];[address] [facility] | | | | | | vd;[place] [address] | | | | + + + [...] WORKUP | | | Testing performed at [facility], [address], [place] | | | [address] | | + + + + +---------+ [...] | | | | | | [place] [address] | | | | + + + + + + | Clarity | CLOUDYComment: Testing | | EXTERNAL | | | | performed at [facility], [address] | | LAB | | | | [address], | | | | | | [place] [address] | | | | + + + + + + | Specific | 1.015Comment: Testing | 1.002 - 1.030 | EXTERNAL | | | [place], | performed at [facility], [address] | | LAB | | | Urine | [address], | | | | | | [place] [address] | | | | + + + + + + | Leukocyte | SMALL (A)Comment: | | EXTERNAL | | | Esterase, | Testing performed at | | LAB | | | Urine | [facility], [address] | | | | | | [place] | | | | | | [address] | | | | + + + + + + | Nitrite, | NEGATIVEComment: Testing | | EXTERNAL | | | Urine | performed at [facility], [address] | | LAB | | | | [address], | | | | | | [place] [address] | | | | + + + + + + | Urobilinoge | 0.2Comment: Testing | mg/dL | EXTERNAL | | | n, Urine | performed at [facility], [address] | | LAB | | | | [address], | | | | | | [place] [address] | | | | + + + + + + | Protein, | 100 (A)Comment: Testing | mg/dL | EXTERNAL | | | Urine | performed at [facility], [address] | | LAB | | | | [address], | | | | | | [place] [address] | | | | + + + + + + | pH, Urine | 6.5Comment: Testing | 5.0 - 8.0 | EXTERNAL | | | | performed at [facility], [address] | | LAB | | | | [address], | | | | | | [place] [address] | | | | + + + + + + | Blood, | MODERATE (A)Comment: | | EXTERNAL | | | Urine | Testing performed at | | LAB | | | | [facility], [address] | | | | | | [place] | | | | | | [address] | | | | + + + + + + | Ketones | NEGATIVEComment: Testing | mg/dL | EXTERNAL | | | | performed at [facility], [address] | | LAB | | | | [address], | | | | | | [place] [address] | | | | + + + + + + | Bilirubin, | NEGATIVEComment: Testing | | EXTERNAL | | | Urine | performed at [facility], [address] | | LAB | | | | [address], | | | | | | [place] [address] | | | | + + + + + + | Glucose, | NEGATIVEComment: Testing | mg/dL | EXTERNAL | | | Urine | performed at [facility], [address] | | LAB | | | | [address], | | | | | | [place] [address] | | | | + + + [...] | | | | | [place] [address] | | | | + + + + + + | RBC, UA | 1-5Comment: Testing | 0 - 5 /hpf | EXTERNAL | | | | performed at [facility], [address] | | LAB | | | | [address], | | | | | | [place] [address] | | | | + + + + + + | Epithelial | 0-2Comment: Testing | /lpf | EXTERNAL | | | Cells | performed at [facility], [address] | | LAB | | | | [address], | | | | | | [place] [address] | | | | + + + + + + | Bacteria, | TRACE (A)Comment: | | EXTERNAL | | | UA | Testing performed at | | LAB | | | | [facility], [address] | | | | | | [place] | | | | | | [address] | | | | + + + + + + | Urinalysis | CULTURE TO | | EXTERNAL | | | Comments | FOLLOWComment: Testing | | LAB | | | | performed at [facility], [address] | | | | | | [address], | | | | | | [place] [address] | | | | + + + [...] | LAB | | | | [address];[place], [place] | | | | | | [address] | | | | + + + [...] LAB | | C.diffAbnormal Testing performed at [facility];[address] [place] [address];[place], [place] | | | [phone] NAP1 BI 027 NAP1 BI | | | PRESUMPTIVE NEGATIVE Detection of 027 NAP1 BI strains of C. difficile | | | is presumptive and for epidemiological purposes and not intended to | | | guide or monitor treatment for C. difficile infections. Testing | | | performed at [facility];[address] [place] [address];[place] [address] | | + + + + +---------+ [...] | LAB | | | | [address];[place], [place] | | | | | | [address] | | | | + + + [...] [facility];[address] [place] [address] | | | | | | [facility];[place] [address] | | | | + + + [...] | LAB | | | | [address] [facility];[place], [place] | | | | | | [address] | | | | + + + [...] | | | | | | ACUTE FL Testing | | | | | | performed at [facility];[address] | | | | | | [address];[place], [place] | | | | | | [address] | | | | + + + [...] | | | | | [address]vd;[place] [address] | | | | + + + + + + | Red Blood | 3.66 (L)Comment: Testing | 3.70 - 5.10 | EXTERNAL | | | Cells | performed at [facility];888 | M/uL | LAB | | | Counted | [address];[place] | | | | | | [address] | | | | + + + + + + | Hemoglobin | 12.6Comment: Testing | 11.3 - 15.5 | EXTERNAL | | | | performed at [facility];888 | g/dL | LAB | | | | [address];[place] | | | | | | [address] | | | | + + + + + + | Hematocrit, | 38.9Comment: Testing | 34.0 - 46.0 % | EXTERNAL | | | POC | performed at [facility];[address] | | LAB | | | | [address];[place] | | | | | | [address] | | | | + + + + + + | MCV | 106.3 (H)Comment: | 80.0 - 100.0 fl | EXTERNAL | | | | Testing performed at | | LAB | | | | [facility];[address] | [address];[place] [address] | | | | + + + + + + | MCH | 34.3 (H)Comment: Testing | 27.0 - 34.0 pg | EXTERNAL | | | | performed at [facility];[address] | | LAB | | | | [address];[place] | | | | | | [address] | | | | + + + + + + | MCHC | 32.3Comment: Testing | 32.0 - 35.5 | EXTERNAL | | | | performed at [facility];888 | g/dL | LAB | | | | [address];[place] | | | | | | [address] | | | | + + + + + + | RDW-CV | 54.7 (H)Comment: Testing | 37 - 53 fl | EXTERNAL | | | | performed at [facility];[address] | | LAB | | | | [address];[place] | | | | | | [address] | | | | + + + + + + | Platelet | 167Comment: Testing | 150 - 400 K/uL | EXTERNAL | | | Count | performed at [facility];888 | | LAB | | | Plasma | [address];[place] | | | | | | [address] | | | | + + + + + + | MPV | 10.6Comment: Testing | fl | EXTERNAL | | | | performed at [facility];[address] | | LAB | | | | [address];[place] | | | | | | [address] | | | | + + + + + + | Differentia | MANUALComment: Testing | | EXTERNAL | | | l Type | performed at [facility];[address] | | LAB | | | | [address];[place] | | | | | | [address] | | | | + + + + + + | Segmented | 54Comment: Testing | % | EXTERNAL | | | Neutrophils | performed at [facility];[address] | | LAB | | | Manual | [address];[place] | | | | | | [address] | | | | + + + + + + | % Bands | 18Comment: Testing | % | EXTERNAL | | | | performed at [facility];[address] | | LAB | | | | [address];[place] | | | | | | [address] | | | | + + + + + + | Lymphocytes | 16Comment: Testing | % | EXTERNAL | | | Manual | performed at [facility];[address] | | LAB | | | | [address];[place] | | | | | | [address] | | | | + + + + + + | Monocytes | 12Comment: Testing | % | EXTERNAL | | | Manual | performed at [facility];[address] | | LAB | | | | [address];[place] | | | | | | [address] | | | | + + + + + + | Absolute | 10.69 (H)Comment: | 1.90 - 7.40 | EXTERNAL | | | Neutrophils | Testing performed at | K/uL | LAB | | | | [facility];[address];[place] [address] | | | | + + + + + + | Bands | 3.56 (H)Comment: Testing | 0.00 - 0.20 | EXTERNAL | | | Manual | performed at [facility];888 | K/uL | LAB | | | | [address];[place] | | | | | | [address] | | | | + + + + + + | Absolute | 3.16Comment: Testing | 1.00 - 3.90 | EXTERNAL | | | Lymphocytes | performed at [facility];888 | K/uL | LAB | | | | [address];[place] | | | | | | [address] | | | | + + + + + + | Absolute | 2.37 (H)Comment: Testing | 0.00 - 0.80 | EXTERNAL | | | Monocytes | performed at [facility];888 | K/uL | LAB | | | | [address];[place] | | | | | | [address] | | | | + + + + + + | Platelet | ADEQUATEComment: Testing | | EXTERNAL | | | Estimate | performed at [facility];[address] | | LAB | | | | [address];[place] | | | | | | [address] | | | | + + + + + + | RBC | NORMAL PLT MORPHComment: | | EXTERNAL | | | Morphology | 1+ANISOTesting | | LAB | | | | performed at [facility];[address] | | | | | | [address];[place], [place] | | | | | | [address] | | | | | | | [...] | LAB | | | | [address];[place], [place] | | | | | | [address] | | | | + + + [...] | LAB | | | | [address];[place] | | | | | | [address] | | | | + + + [...] [address];[place] [address] | | | | + + + [...] | LAB | | | | [address];[place], [place] | | | | | | [address] | | | | + + + [...] Real | | | | | | [address] | | | | + + + [...] [place] | | | | | | [address] | | | | + + + + + + | K | 3.4 (L)Comment: Testing | 3.5 - 4.9 | EXTERNAL | | | | performed at [facility];888 | mmol/L | LAB | | | | [address];[place] | | | | | | [address] | | | | + + + + + + | Cl | 101Comment: Testing | 99 - 109 mmol/L | EXTERNAL | | | | performed at [facility];[address] | | LAB | | | | [address];[place] | | | | | | [address] | | | | + + + + + + | CO2 | 27Comment: Testing | 23 - 32 mmol/L | EXTERNAL | | | | performed at [facility];[address] | | LAB | | | | [address];[place] | | | | | | [address] | | | | + + + + + + | Anion Gap | 12Comment: Testing | 5 - 20 mmol/L | EXTERNAL | | | | performed at [facility];[address] | | LAB | | | | [address];[place] | | | | | | [address] | | | | + + + + + + | Glucose, | 106 (H)Comment: Testing | 65 - 99 mg/dL | EXTERNAL | | | Fasting | performed at [facility];[address] | | LAB | | | | [address];[place] | | | | | | [address] | | | | + + + + + + | BUN | 18Comment: Testing | 8 - 25 mg/dL | EXTERNAL | | | | performed at [facility];[address] | | LAB | | | | [address];[place] | | | | | | [address] | | | | + + + + + + | Creatinine | 1.3 (H)Comment: Testing | 0.50 - 1.00 | EXTERNAL | | | | performed at [facility];888 | mg/dL | LAB | | | | [address];[place] | | | | | | [address] | | | | + + + + + + | BUN/Creatin | 14Comment: Testing | | EXTERNAL | | | ine Ratio | performed at [facility];[address] | | LAB | | | | [address];[place] | | | | | | [address] | | | | + + + + + + | Calcium | 7.3 (L)Comment: Testing | 8.5 - 10.5 | EXTERNAL | | | | performed at [facility];888 | mg/dL | LAB | | | | [address];[place] | | | | | | [address] | | | | + + + + + + | Protein, | 7.9Comment: Testing | 6.3 - 8.2 g/dL | EXTERNAL | | | Total | performed at [facility];[address] | | LAB | | | | [address];[place] | | | | | | [address] | | | | + + + + + + | Albumin | 2.5 (L)Comment: Testing | 3.3 - 4.8 g/dL | EXTERNAL | | | | performed at [facility];[address] | | LAB | | | | [address];[place] | | | | | | [address] | | | | + + + + + + | Globulin | 5.4 (H)Comment: Testing | 1.3 - 4.9 g/dL | EXTERNAL | | | | performed at [facility];[address] | | LAB | | | | [address];[place] | | | | | | [address] | | | | + + + + + + | A/G Ratio | 0.5 (L)Comment: Testing | 1.0 - 2.4 | EXTERNAL | | | | performed at [facility];[address] | | LAB | | | | [address];[place] | | | | | | [address] | | | | + + + + + + | Bilirubin | 0.6Comment: Testing | 0.1 - 1.5 mg/dL | EXTERNAL | | | Total | performed at [facility];[address] | | LAB | | | | [address];[place] | | | | | | [address] | | | | + + + + + + | ALP, | 188 (H)Comment: Testing | 35 - 115 U/L | EXTERNAL | | | External | performed at [facility];[address] | | LAB | | | | [address];[place] | | | | | | [address] | | | | + + + + + + | AST | 51 (H)Comment: Testing | 10 - 45 U/L | EXTERNAL | | | | performed at [facility];[address] | | LAB | | | | [address];[place] | | | | | | [address] | | | | + + + + + + | ALT | 30Comment: Testing | 10 - 65 U/L | EXTERNAL | | | | performed at [facility];[address] | | LAB | | | | [address];[place] | | | | | | [address] | | | | + + + [...] [facility];[address] [place] [address] | | | | | | [facility];[place] [address] | | | | + + + [...] Blake - 01/05/2019 4:32 AM ALTAGRACIA COLEEnid [id number] yearsXR | | CHEST 1 VIEW01/28/2015 2:40 [...]
--- OUTSIDE RECORDS SUMMARY | ~2019-09-28 | XMS | Encounter Summary ---
Demographics + + + | Address | [address] | | | [place] [address] | + + + | Home Phone [...] Team Providers + +------+ + | Care General Activities Therapist Name | Role | Phone | + [...] | | [phone] | [facility] [place] | | | | | [place], | [address] | | | | | [place] [address] | [phone] | | | | | [phone] | | | +--------+ + + + [...]
--- OUTSIDE RECORDS SUMMARY | ~2019-09-28 | XMS | Encounter Summary ---
Demographics + + + | Address | [address] | | | [place] [address] | + + + | Home Phone [...] + + + | Author | [facility] | | | and [place] | + + + | Organization | [facility] | | | and [...] Team Providers + +------+ + | Care Scholastic Aptitude Test Grader Name | Role | Phone | + +------+ + | Yovani Santana MD | PCP | | + +------+ + Encounter Details +--------+ + + + + | Date | Type | Department | Care Team | Description | +--------+ + + + + | 01/14/ | Hospital | [facility] | Jennifer Hartman MD | Near syncope; | | 2015 - | Encounter | [facility] | [address] | Elevated troponin; | | | | CARE FLOOR [address] | [place] [address] | Non-STEMI (non-ST | | 01/19/ | | [address] | [phone] | elevated myocardial | | 2015 | | [place], [place] | | infarction) ([facility]); | | | | [address] | | CKD (chronic kidney | | | | [phone] | | disease), | | | | | | unspecified stage; | | | | | | Leukocytosis; ZULAY | | | | | | (acute kidney | | | | | | injury) ([facility]); Liver | | | | | | replaced by | | | | | | transplant ([facility]) | +--------+ + + + + [...] Date of Service: 01/19/15 0753 Status: Signed [employer] Law Clerk: Emma Hardy MD (Physician) Related Notes: Original Note by Emma Hardy MD (Physician) filed at 01/19/15 0800 [facility]: Hospitalist Physician Discharge Summary Patient [...] history of chronic pain, on chronic methadone, 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 The patient was taken off methadone about 3 weeks prior to admission. Pre vious creatinine was 1.38 and the patient was presented at [facility] in [place] , was found to have elevated troponin of 0.55 and noted to have creatinine of 2.4 and leukoc ytosis and was transferred for jsy-BK-ubicuvemi LA. HOSPITAL COURSE The patient was admitted with ukr-AP-qfstdjkai LA. Cardiology consult was obtained. She was started [...] lipid-lowerin g therapy. The patient also has ychtn-ly-havvzgu kidney disease, stage III. Acute renal fail [...] to have severe protein calorie malnutrition and factory maintenance technician was consulted. Her blood pressures remain stable. [...] 1.5* 1.8 1.4* Invalid input(s): ABG Disposition: senior living facility Follow up: Ki De Jesus DO [address] [facility] [address] [place] [address] Schedule an appointment as soon as possible for a visit in 4 days Juan Ramey MD [address] [facility] [address] [facility] [address] Schedule an appointment as soon as possible for a visit in 1 week Follow up biopsy results Juju Riggins MD [address] [place] [address] Schedule an appointment as soon as [...] summary. This entry has been created using [employer] Speech Recognition software and Startist. The entry has been reviewed and there [...] (none) Author Type: Registered Nurse Filed: 01/19/15 6775 Date of Service: 01/19/15 1300 Status: Signed [employer] Court Of Appeals Law Clerk: Shaista Lin RN (Registered Nurse) Pt discharged via wheel chair on 2 L of oxygen. To [facility] in [place]. Pt alert and o rientedX4. onver alessandro Transaction, Provider Unknown - 01/19/2015 8:20 AM PDT Case Management by PHUONG Roman at 01/19/15819 Author: PHUONG Roman Service: (none) Author Type: Ceramic Design Engineer Filed: 01/19/15819 Date of Service: 01/19/15819 Status: Signed [employer] Of Appeals Law Clerk: PHUONG Roman (Ceramic Design Engineer) Disposition: [facility] Transportation: facility van All orders, signed [...] 01/19/15624 Date of Service: 01/19/15412 Status: Signed [employer] [place] Law Clerk: Yady Singh RN (Registered Nurse) Patient resting quietly all night. Medicated once for all over general pain. No further com plaints. VSS. onver alessandro Transaction, Provider Unknown - 01/18/2015 3:21 PM PDT Case Management by PHUONG Roman at 01/18/151520 Author: PHUONG Roman Service: (none) Author Type: Ceramic Design Engineer Filed: 01/18/151520 Date of Service: 01/18/151520 Status: Signed [employer] Court Of Appeals Law Clerk: PHUONG Roman (Ceramic Design Engineer) spoke w/ Will at [facility] who reports they can accept and transport pt tomorrow AM. PHUONG Roman osangela Kirk MD - 01/18/2015 3:10 PM PDT Progress Notes by Rosangela Steinberg MD at 01/18/15 151 Author: Rosangela Steinberg MD Service: Infectious Disease Author Type: Physician Filed: 01/18/15 2202 Date of Service: 01/18/151509 Status: Signed [employer] [place] Law Clerk: Rosangela Steinberg MD (Physician) [facility]: Infectious Disease Progress Note Hospital Day: [...] vomiting and diarrhea. Had initially presented to [facility] in [place] with similar complaints. Was foun d to have an elevated troponin. She was mainly admitted as a non-STEMI. Found to have a leuk ocytosis. Since patient is immunocompromised, she was started empirically on IV ceftriaxone. Chest x-ray showed no infiltrate. Patient denies any recent fevers or chills. She went to [facility] mainly becau se of syncope. Prior [...] extraluminal fluid collection abdomen pelvis without contrast [[id number]] Impression 1. Hypoinflated chest, but no evident infiltrate chest 1 view [[id number]] Impression 1. Indication for study and thus [...] 1445 Date of Service: 01/18/1549 Status: Signed [employer] Appeals Law Clerk: Emma Hardy MD (Physician) [facility]: Hospitalist Progress Note Hospital Day: LOS: 4 days SUBJECTIVE Patient Summary: 69-year-old female with history of liver transplant secondary to [facility] [place] biliary cirrhosis on immunosuppression, chronic [...] (HCC) ASSESSMENT & PLAN 1. Non-ST elevation LA. Possible demand ischemia. Will schedule for nuclear [...] schrader 8. Deconditioning Continue physical therapy and [facility] facility placement versus home PT 9. Chronic [...] AM This entry has been created using [employer] Speech Recognition software and Startist. The entry has been reviewed and there may still exist sound alike word errors. onversion Trans action, Provider Unknown - 01/18/2015 5:16 AM PDT Nurse Progress Note by Yady Singh RN at 01/18/15 05 Author: Yady Singh RN Service: (none) Author Type: Registered Nurse Filed: 01/18/152104 Date of Service: 01/18/15515 Status: Signed [employer] [place] Law Clerk: Yady Singh RN (Registered Nurse) Pt taken [...] Date of Service: 01/17/15 1629 Status: Signed [employer] Law Clerk: Jose Maria Espinal MD (Physician) Related Notes: Original Note by Jose Maria Espinal MD (Physician) filed at 01/17/152012 [facility]: Hospitalist Progress Note Pt: Cole Ernst AGE/SEX: 69 y.o. female : 1945 ROOM: [address] [place] [address] History of Present Illness: " The patient [...] who called EMS. Patient was taken to [facility] in [place]. Susie ent was noted to have a [...] While at [facility] with systolic in the low 90s. Heart [...] CT done several days ago while in [place]. She also stat es that her vomiting and diarrhea have significantly improved. She denies any fevers, hemat emesis, melena, bright red blood per rectum, hematuria, dysuria, she denies any leg pain or swelling. No palpitations. She states she does have a history of "kidney disease" and was told that it was secondary to cyclosporine. However, she is not seen kidney specialist [facility] e her liver transplant.".....per admitting MD/Dr. [...] collected as n oted. I urged the community health nurse staff to introduce a hat so that [...] contrast. Prior study for comparison: None FINDINGS: [employer] Founder 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 deg enerative changes of [...] LA/Ao: 1.57 D-E Excursion: 2.11 cm E-F [place]: 0.09 m/s EPSS: 0.48 cm HR: 77.41 [...] TV A Billy: 0.66 m/s TV Dec [place]: 4.36 m/s2 TV Dec Time: 184.41 ms TV E Billy: 0.80 m/s TV E/A Rat io: 1.21 Hide Buyer: NEDRA Authenticated by: Gil Coronel MD Report [...] nutritional supplements as recommend ed by nutrition service/factory maintenance technician. Jose Maria Espinal MD 01/17/2015 4:29 PM onversion Transa ction, Provider Unknown - 01/17/2015 3:15 PM PDT Case Management by PHUONG Sandhu at 01/17/15 1515 Author: PHUONG Sandhu Service: (none) Author Type: Casting Cleaner Filed: 01/17/15 0078 Date of Service: 01/17/155 Status: Signed [employer] Of Appeals Law Clerk: PHUONG Sandhu (Casting Cleaner) 01/17/15 1500 Discharge Planning Evaluation Admitting Diagnosis Near syncope, elevated tropinin, non-stemi, CKD Anticipated Disposition Facility Type senior living facility Medicare Important Message ([facility]) Given [facility] Facility Other (comment) ([facility]) CARD FIXER met with Pt for discharge planning, on board with going to [facility] when medically ready. CARD FIXER p/c to [facility] - will accept Pt when medically ready. [facility] (73 miles) [address] [facility], [place] Regional Coordinator: Will DCP: [facility] Transportation: [facility] Facility Van - Regional Coordinator: Will [phone] Medicare important message signed and copy in chart LUIS FOUNTAIN, Ceramic Design Engineer [phone] cell osangela Kirk MD - 01/17/2015 1:11 PM PDT Progress Notes by Rosangela Steinberg MD at 01/17/15 1311 Author: Rosangela Steinberg MD Service: Infectious Disease Author Type: Physician Filed: 01/17/15 8389 Date of Service: 01/17/15 1311 Status: Signed [employer] Law Clerk: Rosangela Steinberg MD (Physician) [facility]: Infectious Disease Progress Note Hospital Day: [...] vomiting and diarrhea. Had initially presented to [facility] in [place] with similar complaints. Was foun d to have an elevated troponin. She was mainly admitted as a non-STEMI. Found to have a leuk ocytosis. Since patient is immunocompromised, she was started empirically on IV ceftriaxone. Chest x-ray showed no infiltrate. Patient denies any recent fevers or chills. She went to [facility] mainly becau se of syncope. Prior [...] extraluminal fluid collection abdomen pelvis without contrast [[id number]] Impression 1. Hypoinflated chest, but no evident infiltrate chest 1 view [[id number]] Impression 1. Indication for study and thus [...] 01/16/152137 Date of Service: 01/16/152127 Status: Signed [employer] Appeals Law Clerk: Juju Riggins MD (Physician) [facility]: Cardiology Progress Note Hospital Day: LOS: [...] Author: PHUONG Sandhu Service: (none) Author Type: Casting Cleaner Filed: 01/16/156 Date of Service: 01/16/151642 Status: Signed [employer] Law Clerk: PHUONG Sandhu (Casting Cleaner) 01/16/15 1600 Discharge Planning Evaluation Admitting Diagnosis Near syncope, elevated tropinin, non-stemi, CKD Anticipated Disposition Facility Type senior living facility [facility] Facility Other (comment) ([facility]) PHUONG received p/c from Will, admissions at [facility], states they are willi ng to accept Pt to their [facility] Facility, states their house physician will not pre scribe Methadone. Will states she will start authorization process with [employer] who is Managing the Medicare benefits. Will states the first 20 days are covered at 100% then day 21 will be $100.00 a day. DCP: [facility] or [place] LUIS FOUNTAIN,Ceramic Design Engineer [phone] cell Jose Maria Grimes MD - 01/16/2015 11:29 AM PDTFormatting of this note might be different from armando tellez original. Progress Notes by Jose Maria Espinal MD at 01/16/15 1129 Author: Jose Maria Espinal MD Service: Hospitalist Author Type: Physician Filed: 01/17/15 1149 Date of Service: 01/16/15 112 Status: Signed [employer] Appeals Law Clerk: Jose Maria Espinal MD (Physician) Related Notes: Original Note by Jose Maria Espinal MD (Physician) filed at 01/16/15 1137 [facility]: Hospitalist Progress Note Pt: Cole Ernst AGE/SEX: 69 y.o. female : 1945 ROOM: [address] [place] [address] History of Present Illness: " The patient [...] who called EMS. Patient was taken to [facility] in [place]. Susie ent was noted to have a [...] While at [facility] with systolic in the low 90s. Heart [...] CT done several days ago while in [place]. She also stat es that her vomiting and diarrhea have significantly improved. She denies any fevers, hemat emesis, melena, bright red blood per rectum, hematuria, dysuria, she denies any leg pain or swelling. No palpitations. She states she does have a history of "kidney disease" and was told that it was secondary to cyclosporine. However, she is not seen kidney specialist [facility] e her liver transplant.".....per admitting MD/Dr. [...] collected as n oted. I urged the community health nurse staff to introduce a hat so that [...] contrast. Prior study for comparison: None FINDINGS: [employer] Founder 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 deg enerative changes of [...] LA/Ao: 1.57 D-E Excursion: 2.11 cm E-F [place]: 0.09 m/s EPSS: 0.48 cm HR: 77.41 [...] TV A Billy: 0.66 m/s TV Dec [place]: 4.36 m/s2 TV Dec Time: 184.41 ms TV E Billy: 0.80 m/s TV E/A Rat io: 1.21 Hide Buyer: NEDRA Authenticated by: Gil Coronel MD Report [...] pressure has been showing increasing trend since az toprolol has been held on admission due [...] Date of Service: 01/16/15 1102 Status: Signed [employer] Court Of Appeals Law Clerk: Natalio Benito PT (Physical Therapist) 01/16/15 1102 PT Last Visit PT Received On 01/16/15 Reason for Treatment Deconditioning;Other (comment) (NSTEMI; Syncope) Requires PT Follow Up Awaiting tx order Follow up PT Only? No PT Eval/Reassessment Date 01/16/15 Assistance Required 1 person Business Development Manager Needed No Home Environment Type of Home Apartment ground level Home Exterior Layout Entry steps none Home Interior Layout Lives on main level with bedroom/bathroom Bathroom Shower/Tub Tub/shower unit Bathroom Toilet Standard Bathroom Equipment Shower stool;Grab bars in shower/bath;Grab bars outside of shower/bath Bathroom Accessibility Other (Comment) (Small bathroom) Home Equipment Walker 4 wheeled;Cane single point Prior Function Level of [place] Modified independent with functional mobility;Modified independent wi [...] (sitting in recliner w/ call light and GOLF CART ASSEMBLER present) Restraints Initially in Place No Precautions [...] Eval/Reassessment Date 01/16/15 Assistance Required 1 person Business Development Manager Needed No Precautions Other Precautions Fall Risk [...] support. Patient in the recli ner w/ GOLF CART ASSEMBLER present at end of session, no new [...] (sitting in recliner w/ call light and GOLF CART ASSEMBLER present) Restraints Initially in Place No Plan [...] Notes by Nupur Tadeo MD at 01/16/15 3713 Author: Nupur Tadeo MD Service: Infectious Disease Author Type: Physician Filed: 01/16/15 1257 Date of Service: 01/16/15 1045 Status: Signed [employer] Appeals Law Clerk: Nupur Tadeo MD (Physician) [facility]: Infectious Disease Progress Note Hospital Day: [...] vomiting and diarrhea. Had initially presented to [facility] in [place] with similar complaints. Was found to have an elevated troponin . She was mainly admitted as a non-STEMI. Found to have a leukocytosis. Since patient is imm unocompromised, she was started empirically on IV ceftriaxone. Chest x-ray showed no infiltrate. Patient denies any recent fevers or chills. She went to [facility] mainly becau se of syncope. Prior [...] Author: PHUONG Sandhu Service: (none) Author Type: Casting Cleaner Filed: 01/16/15 1042 Date of Service: 01/16/15 1030 Status: Signed [employer] Of Appeals Law Clerk: PHUONG Sandhu (Casting Cleaner) 01/16/15 1000 Discharge Planning Evaluation Admitting Diagnosis Near syncope, elevated tropinin, non-stemi, CKD Anticipated Disposition Facility Type senior living facility CARD FIXER met with Pt and discussed discharge planning, states she has concerns returning home at this time, as Pt resides alone. CARD FIXER discussed rehab options, SNF vs Home Health vs Outpatient PT. Pt states her sister (Annie Tipton [phone] cell) assists with IADLs as Pt does not dri ve. Pt states she resides alone and has been doing ADLs on her own. Pt states she uses a 4WW with seat at home, then uses a cane when out of the home, stated, "I am a little vain" abou t using the 4WW in public. Pt is interested in [facility], due to close proximity to her home. CARD FIXER faxe d SNF referral. Pt is a [...] need SNF Anticipated DCP: Pending placement at [facility] [place] LUIS FOUNTAIN, Ceramic Design Engineer [phone] cell Luisito Mejía - 01/16/2015 9:12 AM PDTFormatting of this note might be different from the or iginal. Progress Notes by Luisito Thomas MD at 01/16/1512 Author: Luisito Thomas MD Service: Nephrology Author Type: Physician Filed: 01/20/15 190 Date of Service: 01/16/15911 Status: Signed [employer] Court Of Appeals Law Clerk: Luisito Thomas MD (Physician) [facility]: NEPHROLOGY PROGRESS Note Cole Ernst 69 y.o. [id number] 4445/[id number] female [facility] Hospital Day: LOS: 2 days The patient is a 69 y.o. 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 High CIWA this shift =4. Patient c/o generalized pain, treated with PRN [place] per orders. Patient observed to be sle eping, following PRN medication and repositioning. Patient continues to be NSR-ST on tele. Vitals stable. Will continue to monitor patient. Jose Maria Grimes MD - 01/15/2015 3:19 PM PDTFormatting of this note might be different from armando tellez original. Progress Notes by Jose Maria Espinal MD at 01/15/15 839 Author: Jose Maria Espinal MD Service: Hospitalist Author Type: Physician Filed: 01/16/1544 Date of Service: 01/15/151518 Status: Signed [employer] Law Clerk: Jose Maria Espinal MD (Physician) Related Notes: Original Note by Jose Maria Espinal MD (Physician) filed at 01/15/151939 [facility]: Hospitalist Progress Note Pt: Cole Ernst AGE/SEX: 69 y.o. female : 1945 ROOM: [address] [place] [address] History of Present Illness: " The patient [...] who called EMS. Patient was taken to [facility] in [place]. Susie ent was noted to have a [...] While at [facility] with systolic in the low 90s. Heart [...] CT done several days ago while in [place]. She also stat es that her vomiting and diarrhea have significantly improved. She denies any fevers, hemat emesis, melena, bright red blood per rectum, hematuria, dysuria, she denies any leg pain or swelling. No palpitations. She states she does have a history of "kidney disease" and was told that it was secondary to cyclosporine. However, she is not seen kidney specialist [facility] e her liver transplant.".....per admitting MD/Dr. [...] contrast. Prior study for comparison: None FINDINGS: [employer] Founder 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 deg enerative changes of [...] LA/Ao: 1.57 D-E Excursion: 2.11 cm E-F [place]: 0.09 m/s EPSS: 0.48 cm HR: 77.41 [...] TV A Billy: 0.66 m/s TV Dec [place]: 4.36 m/s2 TV Dec Time: 184.41 ms TV E Billy: 0.80 m/s TV E/A Rat io: 1.21 Hide Buyer: N[employer] Authenticated by: Gil Coronel MD Report [...] Elevated troponins, question underlying non ST elevation LA. Continue current medical th erapy. I appreciate [...] Notes by Ronda Michaels RD at 01/15/15 1437 Author: Ronda Michaels RD Service: (none) Author Type: Registered Dietitian Filed: 01/15/15 6398 Date of Service: 01/15/151429 Status: Signed [employer] Appeals Law Clerk: Ronda Michaels RD (Registered Dietitian) 01/15/15 1409 Subjective Timepoint Admit Pt c/o In to [...] Estimated Energy Needs Total Energy Estimated Needs 9202-6663 kcal Method for Estimating Needs 25-30 kcal/kg [...] Date of Service: 01/15/15 1043 Status: Signed [employer] Law Clerk: Luisito Thomas MD (Physician) [facility]: NEPHROLOGY PROGRESS Note Cole Ernst 69 y.o. [id number] 4445/4445-1 female [facility] Hospital Day: LOS: 1 day The patient is a 69 y.o. 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 See ED Record for Physician Inter pretation. Confirmed by MUSE READ ONLY, -COMPUTER ([id number]), editorial assistant Shala Gramajo ([id number]) on 01/14/2015 11:17 :50 [...] K 4.4 11/15/2014 S/P LIVER TXP AT [facility] IN 1991 IMMUNOSUPPRESSION ON CYCLOSPORIN 75 MG BID ON AZA 50 MG DAILY HYPOPHOSPHATEMIA REPLACE TO KEEP P GREATER THAN 2.5 REPEAT P LEVEL IN AM Lab Results Component Value Date PHOS 1.5* 01/15/2015 PHOS 1.4* 01/14/2015 Abdominal pain / LEUCOCYTOSIS PER HOSPITALIST CT SCAN WITH ORAL CONTRAST DONE Possible UTI pyuria on her urinalysis from [facility] on ceftriaxone CASE DISCUSSED IN DETAIL WITH PATIENT/ Care team / HOSPITALIST, ANSWERS ALL QUESTIONS IN D ETAIL, VERBALIZES UNDERSTANDING LUISITO THOMAS MD 01/15/2015 KI DE JESUS onversion Transactio n, Provider Unknown - 01/14/2015 11:16 PM PDT Nurse Progress Note by Giovanna Bejarano RN at 01/14/159 Author: Giovanna Bejarano RN Service: (none) Author Type: Registered Nurse Filed: 01/14/154 Date of Service: 08/25/15 2316 Status: Signed [employer] Law Clerk: Giovanna Bejarano, RN (Registered Nurse) Called Dr. [...] 01/14/152226 Date of Service: 01/14/152226 Status: Signed [employer] Law Clerk: Jazz Rahman RPH (Pharmacist) Clinical Pharmacy Note - Renal Dose Adjustment Cole Ernst 69 y.o. female Ht Readings from Last 1 Encounters: 01/14/15 1.6 m (5' 3") Wt Readings from Last 1 Encounters: 01/14/15 89.6 kg (197 lb 8.5 oz) CREATININE Date Value Ref Range Status 01/14/2015 2.4* 0.50 - 1.00 mg/dL Final Comment: Testing performed at [facility];[address] [place] [address];[place] [address] CREATININE: 2.4 mg/dL ABNORMAL (01/14/15 1548) Estimated [...] PHUONG Crump, VINAY Service: (none) Author Type: Ceramic Design Engineer Filed: 01/14/151734 Date of Service: 01/14/151733 Status: Signed [employer] Of Appeals Law Clerk: PHUONG Crump, LEAD CUSTOMER SERVICE REPRESENTATIVE (Ceramic Design Engineer) 01/14/15 6198 Discharge Planning Evaluation Admitting Diagnosis Near syncope, elevated tropinin, non-stemi, CKD Readmission No Living Arrangements Alone Support Systems Family members;Friends/neighbors Type of Residence Private residence House type Apartment Bathrooms on 1st Floor 1-Full Independent with ADL's Yes Independent with Mobility No-comment Home Care Services No Mental Status Oriented Power of Malt House Loader No;Other (comment) Resources Transportation issues No Prescription Plan Yes Name of Pharmacy [facility] in [place], [place] Previous home health equipment Yes Anticipated Disposition Facility Type Home Met with patient and discussed discharge planning, Pt is a 69 y.o., female who reports dru giron alone. Patient reports her sister, Annie Tipton, will transport her home a t discharge. Patient's PCP is: KI DE JESUS (General) Patient's insurance:b [employer] Health Plan & Medicare Coverage concerns: Medication coverage/concerns: [facility] Delivery: Community resources utilized / [...] TORREZ | | | | | | [address] | | | | | | | [...] preparation was | | | performed by [email or web address], [facility] | | | [place] [address] (Instrumentation And Controls Technician: Martin | | | Zhang Galvan; [facility]#: [id number]). Diagnostician: Martin Potter | Pathologist Electronically Signed [...] | | | | | [place] [address] | | | | + + + [...] | performed at [facility], [address] | | LAB | | | | [address], | | | | | | [place] [address] | | | | + + + [...] | | | | | [place] [address] | | | | + + + + + + | K | 3.4 (L)Comment: Testing | 3.5 - 4.9 | EXTERNAL | | | | performed at [facility], [address] | mmol/L | LAB | | | | [address], | | | | | | [place] [address] | | | | + + + + + + | Cl | 101Comment: Testing | 99 - 109 mmol/L | EXTERNAL | | | | performed at [facility], [address] | | LAB | | | | [address], | | | | | | [place] [address] | | | | + + + + + + | CO2 | 28Comment: Testing | 23 - 32 mmol/L | EXTERNAL | | | | performed at [facility], [address] | | LAB | | | | [address], | | | | | | [place] [address] | | | | + + + + + + | Anion Gap | 10Comment: Testing | 5 - 20 mmol/L | EXTERNAL | | | | performed at [facility], [address] | | LAB | | | | [address], | | | | | | [place] [address] | | | | + + + + + + | Glucose, | 107 (H)Comment: Testing | 65 - 99 mg/dL | EXTERNAL | | | Fasting | performed at [facility], [address] | | LAB | | | | [address], | | | | | | [place] [address] | | | | + + + + + + | BUN | 8Comment: Testing | 8 - 25 mg/dL | EXTERNAL | | | | performed at [facility], [address] | | LAB | | | | [address], | | | | | | [place] [address] | | | | + + + + + + | Creatinine | 0.96Comment: Testing | 0.50 - 1.00 | EXTERNAL | | | | performed at [facility], [address] | mg/dL | LAB | | | | [address], | | | | | | [place] [address] | | | | + + + + + + | BUN/Creatin | 8Comment: Testing | | EXTERNAL | | | ine Ratio | performed at [facility], [address] | | LAB | | | | [address], | | | | | | [place] [address] | | | | + + + + + + | Calcium | 8.6Comment: Testing | 8.5 - 10.5 | EXTERNAL | | | | performed at [facility], [address] | mg/dL | LAB | | | | [facility], | | | | | | [place] [address] | | | | + + + [...] | | at [facility], [address] | | | | | | [facility], | | | | | | [place] [address] | | | | + + + [...] + + + | COLE ERNST 1945 PR MYOCARDIAL PERFUSION SPECT - STRESS | | [...] | performed at [facility], [address] | K/uL | LAB | | | | [address], | | | | | | [place] [address] | | | | + + + + + + | Red Blood | 3.41 (L)Comment: Testing | 3.70 - 5.10 | EXTERNAL | | | Cells | performed at [facility], [address] | M/uL | LAB | | | Counted | [address], | | | | | | [place] [address] | | | | + + + + + + | Hemoglobin | 11.9Comment: Testing | 11.3 - 15.5 | EXTERNAL | | | | performed at [facility], [address] | g/dL | LAB | | | | [address], | | | | | | [place] [address] | | | | + + + + + + | Hematocrit, | 35.7Comment: Testing | 34.0 - 46.0 % | EXTERNAL | | | POC | performed at [facility], [address] | | LAB | | | | [address], | | | | | | [place] [address] | | | | + + + + + + | MCV | 104.6 (H)Comment: | 80.0 - 100.0 fl | EXTERNAL | | | | Testing performed at | | LAB | | | | [facility], [address] | | | | | | [place] | | | | | | [address] | | | | + + + + + + | MCH | 34.9 (H)Comment: Testing | 27.0 - 34.0 pg | EXTERNAL | | | | performed at [facility], [address] | | LAB | | | | [address], | | | | | | [place] [address] | | | | + + + + + + | MCHC | 33.3Comment: Testing | 32.0 - 35.5 | EXTERNAL | | | | performed at [facility], [address] | g/dL | LAB | | | | [address], | | | | | | [place] [address] | | | | + + + + + + | RDW-CV | 50.8Comment: Testing | 37 - 53 fl | EXTERNAL | | | | performed at [facility], [address] | | LAB | | | | [address], | | | | | | [place] [address] | | | | + + + [...] | | | | | [place] [address] | | | | + + + + + + | MPV | 12.6Comment: Testing | fl | EXTERNAL | | | | performed at [facility], [address] | | LAB | | | | [address], | | | | | | [place] [address] | | | | + + + + + + | Differentia | AUTOMATEDComment: | | EXTERNAL | | | l Type | Testing performed at | | LAB | | | | [facility], [address] | | | | | | [place] | | | | | | [address] | | | | + + + + + + | % Segmented | 40.31Comment: Testing | % | EXTERNAL | | | | performed at [facility], [address] | | LAB | | | Neutrophils | [address], | | | | | | [place] [address] | | | | + + + + + + | % | 39.78Comment: Testing | % | EXTERNAL | | | Lymphocytes | performed at [facility], [address] | | LAB | | | | [address], | | | | | | [place] [address] | | | | + + + + + + | % Monocytes | 12.51Comment: Testing | % | EXTERNAL | | | | performed at [facility], [address] | | LAB | | | | [address], | | | | | | [place] [address] | | | | + + + + + + | % | 6.45Comment: Testing | % | EXTERNAL | | | Eosinophils | performed at [facility], [address] | | LAB | | | | [address], | | | | | | [place] [address] | | | | + + + + + + | % Basophils | 0.95Comment: Testing | % | EXTERNAL | | | | performed at [facility], [address] | | LAB | | | | [address], | | | | | | [place] [address] | | | | + + + + + + | Absolute | 3.26Comment: Testing | 1.90 - 7.40 | EXTERNAL | | | Segmented | performed at [facility], [address] | K/uL | LAB | | | Neutrophils | [address], | | | | | | [place] [address] | | | | + + + + + + | Absolute | 3.21Comment: Testing | 1.00 - 3.90 | EXTERNAL | | | Lymphocytes | performed at [facility], [address] | K/uL | LAB | | | | [address], | | | | | | [place] [address] | | | | + + + + + + | Absolute | 1.01 (H)Comment: Testing | 0.00 - 0.80 | EXTERNAL | | | Monocytes | performed at [facility], [address] | [address] | LAB | | | | [address], | | | | | | [place] [address] | | | | + + + + + + | Absolute | 0.52 (H)Comment: Testing | 0.00 - 0.50 | EXTERNAL | | | Eosinophils | performed at [facility], [address] | [address] | LAB | | | | [address], | | | | | | [place] [address] | | | | + + + + + + | Absolute | 0.08Comment: Testing | 0.00 - 0.10 | EXTERNAL | | | Basophils | performed at [facility], [address] | K/uL | LAB | | | | [address], | | | | | | [place] [address] | | | | + + + + + + | RBC | RBC AND PLT MORPHOLOGY | | EXTERNAL | | | Morphology | APPEAR NORMALComment: | | LAB | | | | Testing performed at | | | | | | [facility], [address] | | | | | | [place] | | | | | | [address] | | | | + + + [...] | performed at [facility], [address] | | LAB | | | | [address], | | | | | | [place] [address] | | | | + + + [...] | performed at [facility], [address] | | LAB | | | | [address], | | | | | | [place] [address] | | | | + + + [...] | | | | | [place] [address] | | | | + + + + + + | K | 3.8Comment: Testing | 3.5 - 4.9 | EXTERNAL | | | | performed at [facility], [address] | mmol/L | LAB | | | | [address], | | | | | | [place] [address] | | | | + + + + + + | Cl | 101Comment: Testing | 99 - 109 mmol/L | EXTERNAL | | | | performed at [facility], [address] | | LAB | | | | [address], | | | | | | [place] [address] | | | | + + + + + + | CO2 | 27Comment: Testing | 23 - 32 mmol/L | EXTERNAL | | | | performed at [facility], [address] | | LAB | | | | [address], | | | | | | [place] [address] | | | | + + + + + + | Anion Gap | 12Comment: Testing | 5 - 20 mmol/L | EXTERNAL | | | | performed at [facility], [address] | | LAB | | | [address], | | | | | | [place] [address] | | | | + + + + + + | Glucose, | 118 (H)Comment: Testing | 65 - 99 mg/dL | EXTERNAL | | | Fasting | performed at [facility], [address] | | LAB | | | | [address], | | | | | | [place] [address] | | | | + + + + + + | BUN | 7 (L)Comment: Testing | 8 - 25 mg/dL | EXTERNAL | | | | performed at [facility], [address] | | LAB | | | | [address], | | | | | | [place] [address] | | | | + + + + + + | Creatinine | 0.79Comment: Testing | 0.50 - 1.00 | EXTERNAL | | | | performed at [facility], [address] | mg/dL | LAB | | | | [address], | | | | | | [place] [address] | | | | + + + + + + | BUN/Creatin | 9Comment: Testing | | EXTERNAL | | | ine Ratio | performed at [facility], [address] | | LAB | | | | [address], | | | | | | [place] [address] | | | | + + + + + + | Calcium | 7.5 (L)Comment: Testing | 8.5 - 10.5 | EXTERNAL | | | | performed at [facility], [address] | mg/dL | LAB | | | | [address], | | | | | | [place] [address] | | | | + + + + + + | Protein, | 7.2Comment: Testing | 6.3 - 8.2 g/dL | EXTERNAL | | | Total | performed at [facility], [address] | | LAB | | | | [address], | | | | | | [place] [address] | | | | + + + + + + | Albumin | 3.1 (L)Comment: Testing | 3.3 - 4.8 g/dL | EXTERNAL | | | | performed at [facility], [address] | | LAB | | | | [address], | | | | | | [place] [address] | | | | + + + + + + | Globulin | 4.1Comment: Testing | 1.3 - 4.9 g/dL | EXTERNAL | | | | performed at [facility], [address] | | LAB | | | | [address], | | | | | | [place] [address] | | | | + + + + + + | A/G Ratio | 0.8 (L)Comment: Testing | 1.0 - 2.4 | EXTERNAL | | | | performed at [facility], [address] | | LAB | | | [address], | | | | | | [place] [address] | | | | + + + + + + | Bilirubin | 0.5Comment: Testing | 0.1 - 1.5 mg/dL | EXTERNAL | | | Total | performed at [facility], [address] | | LAB | | | | [address], | | | | | | [place] [address] | | | | + + + + + + | ALP, | 76Comment: Testing | 35 - 115 U/L | EXTERNAL | | | External | performed at [facility], [address] | | LAB | | | [address], | | | | | | [place] [address] | | | | + + + + + + | AST | 43Comment: Testing | 10 - 45 U/L | EXTERNAL | | | | performed at [facility], [address] | | LAB | | | | [address], | | | | | | [place] [address] | | | | + + + + + + | ALT | 25Comment: Testing | 10 - 65 U/L | EXTERNAL | | | | performed at [facility], [address] | | LAB | | | | [facility], | | | | | | [place] [address] | | | | + + + [...] W | | | | | | [facility], | | | | | | [place] [address] | | | | + + + [...] EXTERNAL | | | | performed at [facility];[address] | mmol/L | LAB | | | | [address];[place], [place] | | | | | | [address] | | | | + + + [...] EXTERNAL | | | | performed at [facility];[address] | | LAB | | | | [address];[place], [place] | | | | | | [address] | | | | + + + [...] EXTERNAL | | | | performed at [facility] | | LAB | | | | [address];[place], [place] | | | | | | [address] | | | | + + + [...] EXTERNAL | | | | performed at [facility];888 | mmol/L | LAB | | | | [facility];[place], [place] | | | | | | [address] | | | | + + + [...] EXTERNAL | | | | performed at [facility] | | LAB | | | | [address];[place], [place] | | | | | | [address] | | | | + + + [...] EXTERNAL | | | | performed at [facility];[address] | | LAB | | | | [address];[place], [place] | | | | | | [...] | performed at [facility], [address] | K/uL | LAB | | | | [address], | | | | | | [place] [address] | | | | + + + + + + | Red Blood | 3.40 (L)Comment: Testing | 3.70 - 5.10 | EXTERNAL | | | Cells | performed at [facility], [address] | M/uL | LAB | | | Counted | [address], | | | | | | [place] [address] | | | | + + + + + + | Hemoglobin | 12.0Comment: Testing | 11.3 - 15.5 | EXTERNAL | | | | performed at [facility], [address] | g/dL | LAB | | | | [address], | | | | | | [place] [address] | | | | + + + + + + | Hematocrit, | 35.8Comment: Testing | 34.0 - 46.0 % | EXTERNAL | | | POC | performed at [facility], [address] | | LAB | | | | [address], | | | | | | [place] [address] | | | | + + + + + + | MCV | 105.3 (H)Comment: | 80.0 - 100.0 fl | EXTERNAL | | | | Testing performed at | | LAB | | | | [facility], [address] | | | | | | [place] | | | | | | [address] | | | | + + + + + + | MCH | 35.3 (H)Comment: Testing | 27.0 - 34.0 pg | EXTERNAL | | | | performed at [facility], [address] | | LAB | | | | [address], | | | | | | [place] [address] | | | | + + + + + + | MCHC | 33.6Comment: Testing | 32.0 - 35.5 | EXTERNAL | | | | performed at [facility], [address] | g/dL | LAB | | | | [address], | | | | | | [place] [address] | | | | + + + + + + | RDW-CV | 50.8Comment: Testing | 37 - 53 fl | EXTERNAL | | | | performed at [facility], [address] | | LAB | | | | [address], | | | | | | [place] [address] | | | | + + + + + + | Platelet | 149 (L)Comment: Testing | 150 - 400 K/uL | EXTERNAL | | | Count | performed at [facility], [address] | | LAB | | | Plasma | [address], | | | | | | [place] [address] | | | | + + + + + + | MPV | 13.0Comment: Testing | fl | EXTERNAL | | | | performed at [facility], [address] | | LAB | | | | [address], | | | | | | [place] [address] | | | | + + + + + + | Differentia | AUTOMATEDComment: | | EXTERNAL | | | l Type | Testing performed at | | LAB | | | | [facility], [address] | | | | | | [place] | | | | | | [address] | | | | + + + + + + | % Segmented | 52.08Comment: Testing | % | EXTERNAL | | | | performed at [facility], [address] | | LAB | | | Neutrophils | [address], | | | | | | [place] [address] | | | | + + + + + + | % | 32.37Comment: Testing | % | EXTERNAL | | | Lymphocytes | performed at [facility], [address] | | LAB | | | | [address], | | | | | | [place] [address] | | | | + + + + + + | % Monocytes | 10.07Comment: Testing | % | EXTERNAL | | | | performed at [facility], [address] | | LAB | | | [address], | | | | | | [place] [address] | | | | + + + + + + | % | 4.41Comment: Testing | % | EXTERNAL | | | Eosinophils | performed at [facility], [address] | | LAB | | | | [address], | | | | | | [place] [address] | | | | + + + + + + | % Basophils | 1.07Comment: Testing | % | EXTERNAL | | | | performed at [facility], [address] | | LAB | | | | [address], | | | | | | [place] [address] | | | | + + + + + + | Absolute | 5.59Comment: Testing | 1.90 - 7.40 | EXTERNAL | | | Segmented | performed at [facility], [address] | K/uL | LAB | | | Neutrophils | [address], | | | | | | [place] [address] | | | | + + + + + + | Absolute | 3.48Comment: Testing | 1.00 - 3.90 | EXTERNAL | | | Lymphocytes | performed at [facility], [address] | K/uL | LAB | | | | [address], | | | | | | [place] [address] | | | | + + + + + + | Absolute | 1.08 (H)Comment: Testing | 0.00 - 0.80 | EXTERNAL | | | Monocytes | performed at [facility], [address] | K/uL | LAB | | | | [address], | | | | | | [place] [address] | | | | + + + + + + | Absolute | 0.47Comment: Testing | 0.00 - 0.50 | EXTERNAL | | | Eosinophils | performed at [facility], [address] | K/uL | LAB | | | | [address], | | | | | | [place] [address] | | | | + + + + + + | Absolute | 0.12 (H)Comment: Testing | 0.00 - 0.10 | EXTERNAL | | | Basophils | performed at [facility], [address] | [address]L | LAB | | | | [address], | | | | | | [place] [address] | | | | + + + + + + | RBC | NORMAL RBC MORPHComment: | | EXTERNAL | | | Morphology | Testing performed at | | LAB | | | | [facility], [address] | | | | | | [place] | | | | | | [address] | | | | + + + + + + | Differentia | 1+ GIANT PLTComment: | | EXTERNAL | | | l Comments | Testing performed at | | LAB | | | | [facility], [address] | | | | | | [place] | | | | | | [address] | | | | + + + [...] | | | | | [place] [address] | | | | + + + + + + | Cl | 100Comment: Testing | 99 - 109 mmol/L | EXTERNAL | | | | performed at [facility], [address] | | LAB | | | | [address], | | | | | | [place] [address] | | | | + + + + + + | CO2 | 28Comment: Testing | 23 - 32 mmol/L | EXTERNAL | | | | performed at [facility], [address] | | LAB | | | | [address], | | | | | | [place] [address] | | | | + + + + + + | Anion Gap | 13Comment: Testing | 5 - 20 mmol/L | EXTERNAL | | | | performed at [facility], [address] | | LAB | | | | [address], | | | | | | [place] [address] | | | | + + + + + + | Glucose, | 114 (H)Comment: Testing | 65 - 99 mg/dL | EXTERNAL | | | Fasting | performed at [facility], [address] | | LAB | | | | [address], | | | | | | [place] [address] | | | | + + + + + + | BUN | 8Comment: Testing | 8 - 25 mg/dL | EXTERNAL | | | | performed at [facility], [address] | | LAB | | | | [address], | | | | | | [place] [address] | | | | + + + + + + | Creatinine | 0.94Comment: Testing | 0.50 - 1.00 | EXTERNAL | | | | performed at [facility], [address] | mg/dL | LAB | | | | [address], | | | | | | [place] [address] | | | | + + + + + + | BUN/Creatin | 9Comment: Testing | | EXTERNAL | | | ine Ratio | performed at [facility], [address] | | LAB | | | | [address], | | | | | | [place] [address] | | | | + + + + + + | Calcium | 7.8 (L)Comment: Testing | 8.5 - 10.5 | EXTERNAL | | | | performed at [facility], [address] | mg/dL | LAB | | | | [address], | | | | | | [place] [address] | | | | + + + + + + | Protein, | 7.8Comment: Testing | 6.3 - 8.2 g/dL | EXTERNAL | | | Total | performed at [facility], [address] | | LAB | | | [address], | | | | | | [place] [address] | | | | + + + + + + | Albumin | 3.3Comment: Testing | 3.3 - 4.8 g/dL | EXTERNAL | | | | performed at [facility], [address] | | LAB | | | | [address], | | | | | | [place] [address] | | | | + + + + + + | Globulin | 4.5Comment: Testing | 1.3 - 4.9 g/dL | EXTERNAL | | | | performed at [facility], [address] | | LAB | | | [address], | | | | | | [place] [address] | | | | + + + + + + | A/G Ratio | 0.7 (L)Comment: Testing | 1.0 - 2.4 | EXTERNAL | | | | performed at [facility], [address] | | LAB | | | [address], | | | | | | [place] [address] | | | | + + + + + + | Bilirubin | 0.4Comment: Testing | 0.1 - 1.5 mg/dL | EXTERNAL | | | Total | performed at [facility], [address] | | LAB | | | | [address], | | | | | | [place] [address] | | | | + + + + + + | ALP, | 83Comment: Testing | 35 - 115 U/L | EXTERNAL | | | External | performed at [facility], [address] | | LAB | | | | [address], | | | | | | [place] [address] | | | | + + + + + + | AST | 34Comment: Testing | 10 - 45 U/L | EXTERNAL | | | | performed at [facility], [address] | | LAB | | | | [address], | | | | | | [place] [address] | | | | + + + + + + | ALT | 24Comment: Testing | 10 - 65 U/L | EXTERNAL | | | | performed at [facility], [address] | | LAB | | | | [address], | | | | | | [place] [address] | | | | + + + [...] [address], | | | | | | [place] [address] | | | | + + + [...] LAB | | | | performed at [facility];[address] | | | | | | [address];[place], [place] | | | | | | [address] | | | | + + + [...] LAB | | | | performed at [facility] | | | | | | [address];[place], [place] | | | | | | [address] | | | | + + + [...] EXTERNAL | | | | performed at [facility];888 | mmol/L | LAB | | | | [address];[place], [place] | | | | | | [address] | | | | + + + [...] EXTERNAL | | | | performed at [facility] | | LAB | | | | [address];[place], [place] | | | | | | [address] | | | | + + + [...] Testing performed at [facility], [address] | | | [place] [facility] [place] [address] | | + + + + +---------+ [...] | | | [facility], [address] [place] [address] | | + + + + +---------+ [...] NONE SEEN to 1+ Testing performed at [address] | | | [place] [address] | | + + + + +---------+ [...] Testing performed at [facility], [address] | | | [place] [address] | | + + + + +---------+ [...] at | | | | | | [facility], [address] | | | | | | [facility] | | | | | | [address] | | | | + + + [...] | | | | | performed at [facility], [address] | | | | | | [facility] | | | | | | [place] [address] | | | | + + + [...] EXTERNAL | | | | performed at [facility];[address] | | LAB | | | | [address];[place] | | | | | | [address] | | | | + + + + + + | CMV DNA | NOT DETECTEDComment: | | EXTERNAL | | | QUANTITATIV | Unit: IU/MLTesting | | LAB | | | E INTERP | performed at [facility], [address] | | | | | | [place] | | | | | | [place] [address] | | | | + + + + + + | CMV DNA, | NOT DETECTEDComment: | | EXTERNAL | | | Qual PCR | Unit: COPIES/MLTesting | | LAB | | | | performed at [facility], [address] | | | | | | [place] | | | | | | [place] [address] | | | | + + + [...] | | | | | | [facility]ERMINEDBY [facility] [place] [facility] [place] | | | | | | DIVISION [...] | | | | | | at [facility], [address] | | | | | | [place] | | | | | | [address] | | | | + + + [...] | performed at [facility], [address] | K/uL | LAB | | | | [address], | | | | | | [place] [address] | | | | + + + + + + | Red Blood | 3.28 (L)Comment: Testing | 3.70 - 5.10 | EXTERNAL | | | Cells | performed at [facility], [address] | M/uL | LAB | | | Counted | [address], | | | | | | [place] [id number] | | | | + + + + + + | Hemoglobin | 11.6Comment: Testing | 11.3 - 15.5 | EXTERNAL | | | | performed at [facility], [address] | g/dL | LAB | | | | [address], | | | | | | [place] [address] | | | | + + + + + + | Hematocrit, | 34.5Comment: Testing | 34.0 - 46.0 % | EXTERNAL | | | POC | performed at [facility], [address] | | LAB | | | | [address], | | | | | | [place] [address] | | | | + + + + + + | MCV | 105.1 (H)Comment: | 80.0 - 100.0 fl | EXTERNAL | | | | Testing performed at | | LAB | | | | [facility], [address] | | | | | | [place] | | | | | | [address] | | | | + + + + + + | MCH | 35.3 (H)Comment: Testing | 27.0 - 34.0 pg | EXTERNAL | | | | performed at [facility], [address] | | LAB | | | | [address], | | | | | | [place] [address] | | | | + + + + + + | MCHC | 33.5Comment: Testing | 32.0 - 35.5 | EXTERNAL | | | | performed at [facility], [address] | g/dL | LAB | | | | [address], | | | | | | [place] [address] | | | | + + + + + + | RDW-CV | 50.8Comment: Testing | 37 - 53 fl | EXTERNAL | | | | performed at [facility], [address] | | LAB | | | | [address], | | | | | | [place] [address] | | | | + + + + + + | Platelet | 144 (L)Comment: Testing | 150 - 400 K/uL | EXTERNAL | | | Count | performed at [facility], [address] | | LAB | | | Plasma | [address], | | | | | | [place] [address] | | | | + + + + + + | MPV | 13.0Comment: Testing | fl | EXTERNAL | | | | performed at [facility], [address] | | LAB | | | | [address], | | | | | | [place] [address] | | | | + + + + + + | Differentia | AUTOMATEDComment: | | EXTERNAL | | | l Type | Testing performed at | | LAB | | | | [facility], [address] | | | | | | [place] | | | | | | [address] | | | | + + + + + + | % Segmented | 37.99Comment: Testing | % | EXTERNAL | | | | performed at [facility], [address] | | LAB | | | Neutrophils | [address], | | | | | | [place] [address] | | | | + + + + + + | % | 43.49Comment: Testing | % | EXTERNAL | | | Lymphocytes | performed at [facility], [address] | | LAB | | | | [address], | | | | | | [place] [address] | | | | + + + + + + | % Monocytes | 11.24Comment: Testing | % | EXTERNAL | | | | performed at [facility], [address] | | LAB | | | | [address], | | | | | | [place] [address] | | | | + + + + + + | % | 5.97Comment: Testing | % | EXTERNAL | | | Eosinophils | performed at [facility], [address] | | LAB | | | | [address], | | | | | | [place] [address] | | | | + + + + + + | % Basophils | 1.31Comment: Testing | % | EXTERNAL | | | | performed at [facility], [address] | | LAB | | | | [address], | | | | | | [place] [address] | | | | + + + + + + | Absolute | 4.01Comment: Testing | 1.90 - 7.40 | EXTERNAL | | | Segmented | performed at [facility], [address] | K/uL | LAB | | | Neutrophils | [address], | | | | | | [place] [address] | | | | + + + + + + | Absolute | 4.59 (H)Comment: Testing | 1.00 - 3.90 | EXTERNAL | | | Lymphocytes | performed at [facility], [address] | [address]/u[address] | LAB | | | | [address], | | | | | | [place] [address] | | | | + + + + + + | Absolute | 1.19 (H)Comment: Testing | 0.00 - 0.80 | EXTERNAL | | | Monocytes | performed at [facility], [address] | K/uL | LAB | | | | [address], | | | | | | [place] [address] | | | | + + + + + + | Absolute | 0.63 (H)Comment: Testing | 0.00 - 0.50 | EXTERNAL | | | Eosinophils | performed at [facility], [address] | K/uL | LAB | | | | [address], | | | | | | [place] [address] | | | | + + + + + + | Absolute | 0.14 (H)Comment: Testing | 0.00 - 0.10 | EXTERNAL | | | Basophils | performed at [facility], [address] | [address] | LAB | | | | [address], | | | | | | [place] [address] | | | | + + + + + + | RBC | NORMAL RBC MORPHComment: | | EXTERNAL | | | Morphology | Testing performed at | | LAB | | | | [facility], [address] | | | | | | [place] | | | | | | [address] | | | | + + + + + + | Differentia | 2+ GIANT PLTComment: | | EXTERNAL | | | l Comments | Testing performed at | | LAB | | | | [facility], [address] | | | | | | [place] | | | | | | [address] | | | | + + [...] [place] | | | | | | [address] | | | | + + + [...] | performed at [facility], [address] | | LAB | | | | [address], | | | | | | [place] [address] | | | | + + + [...] | | | | | [place] [address] | | | | + + + [...] | | | | | [place] [address] | | | | + + + [...] | | | | | [place] [address] | | | | + + + + + + | K | 3.0 (L)Comment: Testing | 3.5 - 4.9 | EXTERNAL | | | | performed at [facility], [address] | mmol/L | LAB | | | | [address], | | | | | | [place] [address] | | | | + + + + + + | Cl | 104Comment: Testing | 99 - 109 mmol/L | EXTERNAL | | | | performed at [facility], [address] | | LAB | | | | [address], | | | | | | [place] [address] | | | | + + + + + + | CO2 | 22 (L)Comment: Testing | 23 - 32 mmol/L | EXTERNAL | | | | performed at [facility], [address] | | LAB | | | | [address], | | | | | | [place] [address] | | | | + + + + + + | Anion Gap | 15Comment: Testing | 5 - 20 mmol/L | EXTERNAL | | | | performed at [facility], [address] | | LAB | | | | [address], | | | | | | [place] [address] | | | | + + + + + + | Glucose, | 82Comment: Testing | 65 - 99 mg/dL | EXTERNAL | | | Fasting | performed at [facility], [address] | | LAB | | | | [address], | | | | | | [place] [address] | | | | + + + + + + | BUN | 13Comment: Testing | 8 - 25 mg/dL | EXTERNAL | | | | performed at [facility], [address] | | LAB | | | | [address], | | | | | | [place] [address] | | | | + + + + + + | Creatinine | 1.01 (H)Comment: Testing | 0.50 - 1.00 | EXTERNAL | | | | performed at [facility], [address] | mg/dL | LAB | | | | [address], | | | | | | [place] [address] | | | | + + + + + + | BUN/Creatin | 13Comment: Testing | | EXTERNAL | | | ine Ratio | performed at [facility], [address] | | LAB | | | | [address], | | | | | | [place] [address] | | | | + + + + + + | Calcium | 7.7 (L)Comment: Testing | 8.5 - 10.5 | EXTERNAL | | | | performed at [facility], [address] | mg/dL | LAB | | | | [address], | | | | | | [place] [address] | | | | + + + + + + | Protein, | 7.1Comment: Testing | 6.3 - 8.2 g/dL | EXTERNAL | | | Total | performed at [facility], [address] | | LAB | | | | [address], | | | | | | [place] [address] | | | | + + + + + + | Albumin | 3.2 (L)Comment: Testing | 3.3 - 4.8 g/dL | EXTERNAL | | | | performed at [facility], [address] | | LAB | | | | [address], | | | | | | [place] [address] | | | | + + + + + + | Globulin | 3.9Comment: Testing | 1.3 - 4.9 g/dL | EXTERNAL | | | | performed at [facility], [address] | | LAB | | | | [address], | | | | | | [place] [address] | | | | + + + + + + | A/G Ratio | 0.8 (L)Comment: Testing | 1.0 - 2.4 | EXTERNAL | | | | performed at [facility], [address] | | LAB | | | | [address], | | | | | | [place] [address] | | | | + + + + + + | Bilirubin | 0.4Comment: Testing | 0.1 - 1.5 mg/dL | EXTERNAL | | | Total | performed at [facility], [address] | | LAB | | | | [address], | | | | | | [place] [address] | | | | + + + + + + | ALP, | 76Comment: Testing | 35 - 115 U/L | EXTERNAL | | | External | performed at [facility], [address] | | LAB | | | | [address], | | | | | | [place] [address] | | | | + + + + + + | AST | 26Comment: Testing | 10 - 45 U/L | EXTERNAL | | | | performed at [facility], [address] | | LAB | | | [address], | | | | | | [place] [address] | | | | + + + + + + | ALT | 19Comment: Testing | 10 - 65 U/L | EXTERNAL | | | | performed at [facility], [address] | | LAB | | | | [address], | | | | | | [place] [address] | | | | + + + [...] | | | | | [place] [address] | | | | + + + [...] | performed at [facility], [address] | | | | | | [address], | | | | | | [place] [address] | | | | + + + [...] | performed at [facility], [address] | | LAB | | | Random | [address], | | | | | | [place] [address] | | | | + + + [...] | Testing performed | | | at [facility], [address] [place] [address] | | + + + + +---------+ [...] LA/Ao: 1.57 D-E Excursion: 2.11 cm E-F [place]: 0.09 m/s | | | EPSS: 0.48 [...] TV A Billy: 0.66 m/s TV Dec [place]: 4.36 m/s2 TV Dec | | | Time: 184.41 ms TV E Billy: 0.80 m/s TV E/A Ratio: 1.21 | | | Hide Buyer: NEDRA Authenticated by: Gil Coronel MD Report [...] | Index (A-L): 40.51 ml/m2LAAs A2C: 24.56 [id number] A-L A2C: 76.32 mlLAESV MOD A2C: | | 73.52 mlLALs A2C: 6.71 cmLAAs A4C: 24.96 [id number] A-L A4C: 79.86 mlLAESV MOD A4C: | | 77.20 mlLALs A4C: 6.62 cmAo Diam: 2.73 cmAV Cusp: 2.27 cmLA Diam: 4.29 | | cmLA/Ao: 1.57D-E Excursion: 2.11 cmE-F [place]: 0.09 m/sEPSS: 0.48 cmHR: 77.41 | | BPMAV maxP.05 mmHgAV meanP.21 mmHgAV Vmax: 1.73 m/Sorin Vmean: 1.25 m/Sorin | | VTI: 34.68 cmAVA Vmax: 2.07 cm2AVA (VTI): 1.85 kl2XURL Dopp: 2.60 l/brps3OKAQ | | Dopp: 5.05 l/minHR: 78.81 BPMLVOT [...] mmHgTR Vmax: 2.65 | | m/sTV A Bilyl: 0.66 m/sTV Dec [place]: 4.36 m/s2TV Dec Time: 184.41 msTV E Billy: 0.80 | | m/sTV E/A Ratio: 1.21 Hide Buyer: Amberhenticated by: Gil Lott | | Date/Time: [...] | |D-E Excursion: 2.11 cm | |E-F [place]: 0.09 m/s | |EPSS: 0.48 cm | [...] A Billy: 0.66 m/s | |TV Dec [place]: 4.36 m/s2 | |TV Dec Time: 184.41 ms | |TV E Billy: 0.80 m/s | |TV E/A Ratio: 1.21 | | | |Hide Buyer: GD | |Authenticated by: Gil Coronel MD [...] | EXTERNAL LAB | | performed at [facility];[address] [place] [address];[place] [address] 027 NAP1 BI | | | 027 NAP1 BI PRESUMPTIVE NEGATIVE | | | Detection of 027 NAP1 BI strains of C. difficile is presumptive and | | | for epidemiological purposes and not intended to guide or monitor | | | treatment for C. difficile infections. Testing performed at [facility] | | | [facility];[place] [address] | | + + + + +---------+ [...] | | | | | | [place] [address] | | | | + + + + + + | Complement | 19.4Comment: Testing | 10 - 40 mg/dL | EXTERNAL | | | Comp 4 | performed at [facility], [address] | | LAB | | | | [address], | | | | | | [place] [address] | | | | + + + [...] | | | | | | ACUTE LA Testing | | | | | | performed at [facility];[address] | | | | | | [facility];[place], [place] | | | | | | [address] | | | | + + + [...] K/uL | LAB | | | | [facility];[address];[place] [address] | | | | + + + + + + | Red Blood | 3.27 (L)Comment: Testing | 3.70 - 5.10 | EXTERNAL | | | Cells | performed at [facility];[address] | M/uL | LAB | | | Counted | [address];[place] | | | | | | [address] | | | | + + + + + + | Hemoglobin | 11.2 (L)Comment: Testing | 11.3 - 15.5 | EXTERNAL | | | | performed at [facility];[address] | g/dL | LAB | | | | [address];[place] | | | | | | [address] | | | | + + + + + + | Hematocrit, | 34.4Comment: Testing | 34.0 - 46.0 % | EXTERNAL | | | POC | performed at [facility];[address] | | LAB | | | | [address];[place] | | | | | | [address] | | | | + + + + + + | MCV | 105.2 (H)Comment: | 80.0 - 100.0 fl | EXTERNAL | | | | Testing performed at | | LAB | | | | [facility];[address];[place] [address] | | | | + + + + + + | MCH | 34.2 (H)Comment: Testing | 27.0 - 34.0 pg | EXTERNAL | | | | performed at [facility];[address] | | LAB | | | | [address];[place] | | | | | | [address] | | | | + + + + + + | MCHC | 32.5Comment: Testing | 32.0 - 35.5 | EXTERNAL | | | | performed at [facility];[address] | g/dL | LAB | | | | [address];[place] | | | | | | [address] | | | | + + + + + + | RDW-CV | 50.3Comment: Testing | 37 - 53 fl | EXTERNAL | | | | performed at [facility];[address] | | LAB | | | | [address];[place] | | | | | | [address] | | | | + + + + + + | Platelet | 160Comment: Testing | 150 - 400 K/uL | EXTERNAL | | | Count | performed at [facility];[address] | | LAB | | | Plasma | [address];[place] | | | | | | [address] | | | | + + + + + + | MPV | 11.1Comment: Testing | fl | EXTERNAL | | | | performed at [facility];[address] | | LAB | | | | [address];[place] | | | | | | [address] | | | | + + + + + + | Differentia | AUTOMATEDComment: | | EXTERNAL | | | l Type | Testing performed at | | LAB | | | | [facility];[address];[place] [address] | | | | + + + + + + | % Segmented | 50.65Comment: Testing | % | EXTERNAL | | | | performed at [facility];[address] | | LAB | | | Neutrophils | [address];[place] | | | | | | [address] | | | | + + + + + + | % | 37.06Comment: Testing | % | EXTERNAL | | | Lymphocytes | performed at [facility];[address] | | LAB | | | | [address];[place] | | | | | | [address] | | | | + + + + + + | % Monocytes | 9.60Comment: Testing | % | EXTERNAL | | | | performed at [facility];[address] | | LAB | | | | [address];[place] | | | | | | [address] | | | | + + + + + + | % | 1.30Comment: Testing | % | EXTERNAL | | | Eosinophils | performed at [facility];[address] | | LAB | | | | [address];[place] | | | | | | [address] | | | | + + + + + + | % Basophils | 1.39Comment: Testing | % | EXTERNAL | | | | performed at [facility];[address] | | LAB | | | | [address];[place] | | | | | | [address] | | | | + + + + + + | Absolute | 6.64Comment: Testing | 1.90 - 7.40 | EXTERNAL | | | Segmented | performed at [facility];[address] | K/uL | LAB | | | Neutrophils | [address];[place] | | | | | | [address] | | | | + + + + + + | Absolute | 4.86 (H)Comment: Testing | 1.00 - 3.90 | EXTERNAL | | | Lymphocytes | performed at [facility];[address] | K/uL | LAB | | | | [address];[place] | | | | | | [address] | | | | + + + + + + | Absolute | 1.26 (H)Comment: Testing | 0.00 - 0.80 | EXTERNAL | | | Monocytes | performed at [facility];[address] | K/uL | LAB | | | | [address];[place] | | | | | | [address] | | | | + + + + + + | Absolute | 0.17Comment: Testing | 0.00 - 0.50 | EXTERNAL | | | Eosinophils | performed at [facility];[address] | K/uL | LAB | | | | [address];[place] | | | | | | [address] | | | | + + + + + + | Absolute | 0.18 (H)Comment: Testing | 0.00 - 0.10 | EXTERNAL | | | Basophils | performed at [facility];[address] | K/uL | LAB | | | | [address];[place] | | | | | | [address] | | | | + + + [...] EXTERNAL | | | | performed at [facility];[address] | | LAB | | | | [address];[place] | | | | | | [address] | | | | + + + [...] LAB | | | | performed at [facility] | | | | | | [address] [facility];[place], [place] | | | | | | [address] | | | | + + + [...] EXTERNAL | | | | performed at [facility];888 | mmol/L | LAB | | | | [address];[place] | | | | | | [address] | | | | + + + + + + | K | 3.7Comment: SLT | 3.5 - 4.9 | EXTERNAL | | | | HEMOLYSISTesting | mmol/L | LAB | | | | performed at [facility];[address] | | | | | | [address];[place] | | | | | | [address] | | | | + + + + + + | Cl | 110 (H)Comment: Testing | 99 - 109 mmol/L | EXTERNAL | | | | performed at [facility];[address] | | LAB | | | | [address];[place] | | | | | | [address] | | | | + + + + + + | CO2 | 24Comment: Testing | 23 - 32 mmol/L | EXTERNAL | | | | performed at [facility];[address] | | LAB | | | | [address];[place] | | | | | | [address] | | | | + + + + + + | Anion Gap | 13Comment: Testing | 5 - 20 mmol/L | EXTERNAL | | | | performed at [facility];[address] | | LAB | | | | [address];[place] | | | | | | [address] | | | | + + + + + + | Glucose, | 109 (H)Comment: Testing | 65 - 99 mg/dL | EXTERNAL | | | Fasting | performed at [facility];[address] | | LAB | | | | [address];[place] | | | | | | [address] | | | | + + + + + + | BUN | 24Comment: Testing | 8 - 25 mg/dL | EXTERNAL | | | | performed at [facility];[address] | | LAB | | | | [address];[place] | | | | | | [address] | | | | + + + + + + | Creatinine | 1.7 (H)Comment: Testing | 0.50 - 1.00 | EXTERNAL | | | | performed at [facility];888 | mg/dL | LAB | | | | [address];[place] | | | | | | [address] | | | | + + + + + + | BUN/Creatin | 14Comment: Testing | | EXTERNAL | | | ine Ratio | performed at [facility];[address] | | LAB | | | | [address];[place] | | | | | | [address] | | | | + + + + + + | Calcium | 7.4 (L)Comment: Testing | 8.5 - 10.5 | EXTERNAL | | | | performed at [facility];888 | mg/dL | LAB | | | | [address];[place] | | | | | | [address] | | | | + + + + + + | Protein, | 7.0Comment: Testing | 6.3 - 8.2 g/dL | EXTERNAL | | | Total | performed at [facility];[address] | | LAB | | | | [address];[place] | | | | | | [address] | | | | + + + + + + | Albumin | 2.6 (L)Comment: Testing | 3.3 - 4.8 g/dL | EXTERNAL | | | | performed at [facility];[address] | | LAB | | | | [address];[place] | | | | | | [address] | | | | + + + + + + | Globulin | 4.3Comment: Testing | 1.3 - 4.9 g/dL | EXTERNAL | | | | performed at [facility];[address] | | LAB | | | | [address];[place] | | | | | | [address] | | | | + + + + + + | A/G Ratio | 0.6 (L)Comment: Testing | 1.0 - 2.4 | EXTERNAL | | | | performed at [facility];[address] | | LAB | | | | [address];[place] | | | | | | [address] | | | | + + + + + + | Bilirubin | 0.4Comment: Testing | 0.1 - 1.5 mg/dL | EXTERNAL | | | Total | performed at [facility];[address] | | LAB | | | | [address];[place] | | | | | | [address] | | | | + + + + + + | ALP, | 92Comment: Testing | 35 - 115 U/L | EXTERNAL | | | External | performed at [facility];[address] | | LAB | | | | [address];[place] | | | | | | [address] | | | | + + + + + + | AST | 35Comment: SLT | 10 - 45 U/L | EXTERNAL | | | | HEMOLYSISTesting | | LAB | | | | performed at [facility];[address] | | | | | | [address];[place] | | | | | | [address] | | | | + + + + + + | ALT | 29Comment: Testing | 10 - 65 U/L | EXTERNAL | | | | performed at [facility];[address] | | LAB | | | | [address];[place], [place] | | | | | | [address] | | | | + + + [...] | | | | | | at [facility];[address] [place] [address] | | | | | | Blvd;[place] [address] | | | | + + + [...] EXTERNAL | | | | performed at [facility];888 | uIU/mL | LAB | | | | [address];[place], [place] | | | | | | [address] | | | | + + + [...] | | | | | BON CORONEL (202) on | | | | | | 01/15/2015 11:30:08 AM | | | | + + + + + + + + | Specimen | + + | | + + + + + | Narrative | Performed At | + + + | Historically converted procedure from [facility] environment | EXTERNAL LAB | + [...] | | | | | | ACUTE LA Testing | | | | | | performed at [facility];[address] | | | | | [address];[place], [place] | | | | | | [address] | | | | + + [...] Testing performed at [facility], | | | [address] [place] [address] | | + + + + +---------+ [...] | | study for comparison: None FINDINGS: [employer] 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 | | | degenerative [...] study | | for comparison: None FINDINGS: [employer] 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 degenerative changes of the [...] NEGATIVE Testing | | | performed at [facility];[address] [place] [address];[place] [address] | | + + + + +---------+ [...] | | | | | | at [facility];[address] [place] [address] | | | | | | [facility];[place] [address] | | | | + + + [...] EXTERNAL | | | | performed at [facility];[address] | | LAB | | | | [address];[place] | | | | | | [address] | | | | + + + [...] EXTERNAL | | | | performed at [facility];[address] | | LAB | | | | [address];[place] | | | | | | [address] | | | | + + + [...] EXTERNAL | | | | performed at [facility];888 | mmol/L | LAB | | | | [facility];[place], [place] | | | | | | [address] | | | | + + + [...] | performed at [facility], [address] | | LAB | | | | [address] [facility], | | | | | | [place] [address] | | | | + + + [...] | LAB | | | | [facility], [address] | | | | | | [place] | | | | | | [address] | | | | + + + [...] | | | | | ONLY, -COMPUTER (196), | | | | | | editorial assistant Shala Gramajo | | | | | | (25) on 01/14/2015 | | | | | | 11:17:50 PM | | | | + + + + + + + + | Specimen | + + | | + + + + + | Narrative | Performed At | + + + | [facility] environment | EXTERNAL LAB | + [...] EXTERNAL | | | | performed at [facility] | | LAB | | | | [address];[place] | | | | | | [address] | | | | + + + [...] EXTERNAL | | | | performed at [facility];[address] | | LAB | | | | [address];[place], [place] | | | | | | [address] | | | | + + + [...] LAB | | | | performed at [facility] | | | | | | [address];[place], [place] | | | | | | [address] | | | | + + + [...] EXTERNAL | | | | performed at [facility];[address] | | LAB | | | | [address];[place] | | | | | | [address] | | | | + + + [...] EXTERNAL | | | | performed at [facility];[address] | | LAB | | | | [address];[place], [place] | | | | | | [address] | | | | + + + [...] K/uL | LAB | | | | [facility];[address];[place] [address] | | | | + + + + + + | Red Blood | 4.17Comment: Testing | 3.70 - 5.10 | EXTERNAL | | | Cells | performed at [facility];888 | M/uL | LAB | | | Counted | [address];[place] | | | | | | [address] | | | | + + + + + + | Hemoglobin | 14.6Comment: Testing | 11.3 - 15.5 | EXTERNAL | | | | performed at [facility];888 | g/dL | LAB | | | | [address];[place] | | | | | | [address] | | | | + + + + + + | Hematocrit, | 42.7Comment: Testing | 34.0 - 46.0 % | EXTERNAL | | | POC | performed at [facility];[address] | | LAB | | | | [address];[place] | | | | | | [address] | | | | + + + + + + | MCV | 102.3 (H)Comment: | 80.0 - 100.0 fl | EXTERNAL | | | | Testing performed at | | LAB | | | | [facility];[address];[place] [address] | | | | + + + + + + | MCH | 35.0 (H)Comment: Testing | 27.0 - 34.0 pg | EXTERNAL | | | | performed at [facility];[address] | | LAB | | | | [address];[place] | | | | | | [address] | | | | + + + + + + | MCHC | 34.2Comment: Testing | 32.0 - 35.5 | EXTERNAL | | | | performed at [facility];888 | g/dL | LAB | | | | [address];[place] | | | | | | [address] | | | | + + + + + + | RDW-CV | 49.9Comment: Testing | 37 - 53 fl | EXTERNAL | | | | performed at [facility];[address] | | LAB | | | | [address];[place] | | | | | | [address] | | | | + + + + + + | Platelet | 209Comment: Testing | 150 - 400 K/uL | EXTERNAL | | | Count | performed at [facility];[address] | | LAB | | | Plasma | [address];[place] | | | | | | [address] | | | | + + + + + + | MPV | 11.1Comment: Testing | fl | EXTERNAL | | | | performed at [facility];[address] | | LAB | | | | [address];[place] | | | | | | [address] | | | | + + + + + + | RBC | 1+Comment: GIANT | | EXTERNAL | | | Morphology | PLATELETS1+MACROTesting | | LAB | | | | performed at [facility];[address] | | | | | | [address];[place] | | | | | | [address] | | | | | |Testing performed at [facility];[address];[place] [address] | | | | | | | | | | + + + + + + | Differentia | MANUALComment: Testing | | EXTERNAL | | | l Type | performed at [facility];[address] | | LAB | | | | [address];[place] | | | | | | [address] | | | | + + + + + + | Segmented | 58Comment: Testing | % | EXTERNAL | | | Neutrophils | performed at [facility];[address] | | LAB | | | Manual | [address];[place] | | | | | | [address] | | | | + + + + + + | Lymphocytes | 32Comment: Testing | % | EXTERNAL | | | Manual | performed at [facility];[address] | | LAB | | | | [address];[place] | | | | | | [address] | | | | + + + + + + | Monocytes | 9Comment: Testing | % | EXTERNAL | | | Manual | performed at [facility];[address] | | LAB | | | | [address];[place] | | | | | | [address] | | | | + + + + + + | Eosinophils | 1Comment: Testing | % | EXTERNAL | | | Manual | performed at [facility];888 | | LAB | | | | [address];[place] | | | | | | [address] | | | | + + + + + + | Absolute | 9.39 (H)Comment: Testing | 1.90 - 7.40 | EXTERNAL | | | Neutrophils | performed at [facility];888 | K/uL | LAB | | | | [address];[place] | | | | | | [address] | | | | + + + + + + | Absolute | 5.18 (H)Comment: Testing | 1.00 - 3.90 | EXTERNAL | | | Lymphocytes | performed at [facility];888 | K/uL | LAB | | | | [address];[place] | | | | | | [address] | | | | + + + + + + | Absolute | 1.46 (H)Comment: Testing | 0.00 - 0.80 | EXTERNAL | | | Monocytes | performed at [facility];888 | K/uL | LAB | | | | [address];[place] | | | | | | [address] | | | | + + + + + + | Absolute | 0.16Comment: Testing | 0.00 - 0.50 | EXTERNAL | | | Eosinophils | performed at [facility];888 | K/uL | LAB | | | | [address];[place] | | | | | | [address] | | | | + + + + + + | Na | 140Comment: Testing | 135 - 143 | EXTERNAL | | | | performed at [facility];888 | mmol/L | LAB | | | | [address];[place] | | | | | | [address] | | | | + + + + + + | K | 2.8 (L)Comment: Testing | 3.5 - 4.9 | EXTERNAL | | | | performed at [facility];888 | mmol/L | LAB | | | | [address];[place] | | | | | | [address] | | | | + + + + + + | Cl | 100Comment: Testing | 99 - 109 mmol/L | EXTERNAL | | | | performed at [facility];888 | | LAB | | | | [address];[place] | | | | | | [address] | | | | + + + + + + | CO2 | 29Comment: Testing | 23 - 32 mmol/L | EXTERNAL | | | | performed at [facility];888 | | LAB | | | | [address];[place] | | | | | | [address] | | | | + + + + + + | Anion Gap | 14Comment: Testing | 5 - 20 mmol/L | EXTERNAL | | | | performed at [facility];888 | | LAB | | | | [address];[place] | | | | | | [address] | | | | + + + + + + | Glucose, | 107 (H)Comment: Testing | 65 - 99 mg/dL | EXTERNAL | | | Fasting | performed at [facility];888 | | LAB | | | | [address];[place] | | | | | | [address] | | | | + + + + + + | BUN | 28 (H)Comment: Testing | 8 - 25 mg/dL | EXTERNAL | | | | performed at [facility];888 | | LAB | | | | [address];[place] | | | | | | [address] | | | | + + + + + + | Creatinine | 2.4 (H)Comment: Testing | 0.50 - 1.00 | EXTERNAL | | | | performed at [facility];888 | mg/dL | LAB | | | | [address];[place] | | | | | | [address] | | | | + + + + + + | BUN/Creatin | 12Comment: Testing | | EXTERNAL | | | ine Ratio | performed at [facility];888 | | LAB | | | | [address];[place] | | | | | | [address] | | | | + + + + + + | Calcium | 8.1 (L)Comment: Testing | 8.5 - 10.5 | EXTERNAL | | | | performed at [facility];888 | mg/dL | LAB | | | | [address];[place] | | | | | | [address] | | | | + + + + + + | Protein, | 9.3 (H)Comment: Testing | 6.3 - 8.2 g/dL | EXTERNAL | | | Total | performed at [facility];888 | | LAB | | | | [address];[place] | | | | | | [address] | | | | + + + + + + | Albumin | 3.3Comment: Testing | 3.3 - 4.8 g/dL | EXTERNAL | | | | performed at [facility];888 | | LAB | | | | [address];[place] | | | | | | [address] | | | | + + + + + + | Globulin | 6.0 (H)Comment: Testing | 1.3 - 4.9 g/dL | EXTERNAL | | | | performed at [facility];888 | | LAB | | | | [address];[place] | | | | | | [address] | | | | + + + + + + | A/G Ratio | 0.5 (L)Comment: Testing | 1.0 - 2.4 | EXTERNAL | | | | performed at [facility];888 | | LAB | | | | [address];[place] | | | | | | [address] | | | | + + + + + + | Bilirubin | 0.4Comment: Testing | 0.1 - 1.5 mg/dL | EXTERNAL | | | Total | performed at [facility];888 | | LAB | | | | [address];[place] | | | | | | [address] | | | | + + + + + + | ALP, | 129 (H)Comment: Testing | 35 - 115 U/L | EXTERNAL | | | External | performed at [facility];888 | | LAB | | | | [address];[place] | | | | | | [address] | | | | + + + + + + | AST | 39Comment: Testing | 10 - 45 U/L | EXTERNAL | | | | performed at [facility];888 | | LAB | | | | [address];[place] | | | | | | [address] | | | | + + + + + + | ALT | 38Comment: Testing | 10 - 65 U/L | EXTERNAL | | | | performed at [facility];888 | | LAB | | | | [address];[place] | | | | | | [address] | | | | + + + [...] | | | | | | at [facility];[address] | | | | | | [address];[place] [address] | | | | + + + + + + | CK, Total | 151Comment: Testing | 30 - 240 U/L | EXTERNAL | | | | performed at [facility];888 | | LAB | | | | [address];[place] | | | | | | [address] | | | | + + + [...] | | | | | performed at [facility];888 | | | | | | [address];[place] | | | | | | [address] | | | | + + + + + + | aPTT, | 26Comment: Testing | 23 - 32 seconds | EXTERNAL | | | Patient | performed at [facility];888 | | LAB | | | | [address];[place] | | | | | | [address] | | | | + + + + + + | CK-MB | 3.9 (H)Comment: Testing | 0.5 - 3.6 ng/mL | EXTERNAL | | | | performed at [facility];888 | | LAB | | | | [address];[place], [place] | | | | | | [address] | | | | + + + [...] | | | | | | ACUTE LA Testing | | | | | | performed at [facility] | | | | | | [facility];[place], [place] | | | | | | [address] | | | | + + + [...]
--- OUTSIDE RECORDS SUMMARY | ~2019-09-28 | XMS | Encounter Summary ---
Demographics + + + | Address | [address] | | | [place] [address] | + + + | Home Phone | | + + + | Preferred Language | Unknown | + + + | Marital Status | Single | + + + | Yazidism Affiliation | 1041 | + + + | Race | Unknown | + + + | Ethnic Group | Unknown | + + + Author + + + | Author | [facility] | | | and [place] | + + + | Organization | [facility] | | | [...] Team Providers + +------+ + | Care Special Officer Automat Name | Role | Phone | + +------+ + | Yovani Santana MD | PCP | | + +------+ + Encounter Details +--------+ + + + + | Date | Type | Department | Care Team | Description | +--------+ + + + + | 05/10/ | Hospital | [facility] | Gary Melendez, | Hypoxemia; | | 2014 | Encounter | MED CTR XRAY [address] | MD [address] | Restrictive lung | | | | [place] | [place], [place] | disease | | | | [place] [address] | [address] | | | | | [phone] | | | | | | | [...] | | | | | | [place] | | | | | | [address] | | | | | | | [...] + | MISCELLANEOUS LAB | | | [phone] | + +---------+ + + | MISCELANIOUS LAB | | | [phone] | + +---------+ + + documented in this encounter Visit Diagnoses + + | Diagnosis | + + | Hypoxemia | + + | Restrictive lung disease Other diseases of lung, not elsewhere classified | + + documented in this encounter"
--- OUTSIDE RECORDS SUMMARY | ~2019-09-28 | XMS | Encounter Summary ---
Demographics + + + | Address | [address] | | | [place] [address] | + + + | Home Phone | | + + + | Preferred Language | Unknown | + + + | Marital Status | Single | + + + | Congregational Affiliation | 1041 | + + + | Race | Unknown | + + + | Ethnic Group | Unknown | + + + Author + + + | Author | [facility] | | | and [place] | + + + | Organization | [facility] | | [...] Team Providers + +------+ + | Care Commercial Subcontractor Name | Role | Phone | + +------+ + | Rick Osorio DO | PCP | | + +------+ + Encounter Details +--------+ + + + + | Date | Type | Department | Care Team | Description | +--------+ + + + + | 11/15/ | Orders Only | [facility] | Emil Oliva MD | | | 2014 | | NEPRHOLOGY [place] | [address] [facility] | | | | | [address] | [address] [place], [place] | | | | | [address] [place], [place] | [address] | | | | | [address] | | | | | | [phone] | | | +--------+ + + + [...] | | | | | [place], [place] | | | | | | [address] | | | | | | | [...] | | | LAB | | | [place] | | | | | + + [...]
--- OUTSIDE RECORDS SUMMARY | ~2019-09-28 | XMS | Encounter Summary ---
Demographics + + + | Address | [address] | | | [place] [address] | + + + | Home Phone [...] + + + | Author | [facility] | | | and [place] | + + + | Organization | [facility] | | | [...] Team Providers + +------+ + | Care Line Installer Name | Role | Phone | + [...] | | | | Rick, DO | Maria Elena DO | | | | | Tachycardia, | [address] | [address] | | | | | unspecified | [address] | [address] | | | | | Chronic | [address] | [place], [place] | | | | | atrial | [place], | [address] Phone: | | | | | fibrillation | [place] | [phone] | | | | | , | [address] | Fax: | | | | | unspecified | Phone: | [phone] | | | | | ([facility]) | [phone] | | | | | | Procedures | Fax: | | | | | | Consult | [phone] | | + +--------+ + + + + Encounter Details +--------+---------+ + + + | Date | Type | Department | Care Team | Description | +--------+---------+ + + + | 09/26/ | Office | [facility] | Joselyn Maria ElenaDO | Tachycardia (Primary | | 2020 | Visit | CARDIOLOGY [place] | [address] | Dx); Edema, | | | | [address] | [place], [place] | unspecified type | | | | [address] | [address] | | | | | [place], [place] | | | | | | [address] | | | | | | [phone] | | | +--------+---------+ + + + [...] [place] | | | | | | [address] | | | | | | | [...] MD | | | | | | ([id number]) on 09/28/2019 | | | | | [...] | Edema, unspecified type | + + documented in this encounter
--- OUTSIDE RECORDS SUMMARY | ~2019-09-28 | XMS | Encounter Summary ---
Demographics + + + | Address | [address] | | | [place] [address] | + + + | Home Phone | | + + + | Preferred Language | Unknown | + + + | Marital Status | Single | + + + | Scientologist Affiliation [...] Team Providers + +------+ + | Care Acoustic Intelligence Specialist Name | Role | Phone | [...] | | Chronic | [address] | [place], [place] | | | | | atrial | [place], | [address] Phone: | | | | | fibrillation | [place] | [phone] | | | | | , | [address] | Fax: | | | | | unspecified | Phone: | [phone] | | | | | ([facility]) | [phone] | | | | | | Procedures | Fax: | | | | | | Consult | [phone] | | + +--------+ + + + + Encounter Details +--------+---------+ + + + | Date | Type | Department | Care Team | Description | +--------+---------+ + + + | 09/26/ | Office | [facility] | Joselyn Maria ElenaDO | Tachycardia (Primary | | 2020 | Visit | CARDIOLOGY [place] | [address] | Dx); Edema, | | | | [address] | [place], [place] | unspecified type | | | | [address] | [address] | | | | | [place], [place] | | | | | | [address] | | | | | | [phone] | | | +--------+---------+ + + + [...] [place] | | | | | | [address] | | | | | | | [...] MD | | | | | | ([id number]) on 09/28/2019 | | | | | [...]
--- OUTSIDE RECORDS SUMMARY | ~2019-09-28 | XMS | Encounter Summary ---
Demographics + + + | Address | [address] | | | [place] [address] | + + + | Home Phone [...] Team Providers + +------+ + | Care Shellfish Grower Name | Role | Phone | + [...] | | | | | [address] | [address] [place], [place] | | | | | [address] [place], [place] | [address] | | | | | [address] | | | | | | [phone] | | | +--------+ + + + [...] | | | | | [place], [place] | | | | | | [address] | | | | | | | [...]
--- OUTSIDE RECORDS SUMMARY | ~2019-09-28 | XMS | Encounter Summary ---
Demographics + + + | Address | [address] | | | [place] [address] | + + + | Home Phone | | + + + | Preferred Language | Unknown | + + + | Marital Status | Single | + + + | Temple Affiliation | 1041 | + + + | Race | Unknown | + + + | Ethnic Group | Unknown | + + + Author + + + | Author | [facility] | | | and [place] | + + + | Organization | [facility] | | [...] Team Providers + +------+ + | Care Environmental Emergencies Assistant Name | Role | Phone | + +------+ + | Rick Osorio DO | PCP | | + +------+ + Encounter Details +--------+ + + + + | Date | Type | Department | Care Team | Description | +--------+ + + + + | 11/15/ | Orders Only | [facility] | Emil Oliva MD | | | 2014 | | NEPRHOLOGY [place] | [address] [facility] | | | | | [address] | [address] [place], [place] | | | | | [address] [place], [place] | [address] | | | | | [address] | | | | | | [phone] | | | +--------+ + + + [...] | | | | | [place], [place] | | | | | | [address] | | | | | | | [...] | | | LAB | | | [place] | | | | | + + [...]
--- OUTSIDE RECORDS SUMMARY | ~2019-09-28 | XMS | Encounter Summary ---
Demographics + + + | Address | [address] | | | [place] [address] | + + + | Home Phone [...] + + + | Author | [facility] | + + + | Organization | [facility] | + + + | Address | Unknown | + + + | Phone | Unavailable | + + + Care Team Providers + +------+ + | Care Linter Tender Name | Role | Phone | [...] | | [address] | [facility] [place] | | | | | [place], | [address] | | | | | [place] [address] | [phone] | | | | | [phone] | | | +--------+ + + + [...]
--- OUTSIDE RECORDS SUMMARY | ~2019-09-28 | XMS | Encounter Summary ---
Demographics + + + | Address | [address] | | | [place] [address] | + + + | Home Phone | | + + + | Preferred Language | Unknown | + + + | Marital Status | Single | + + + | Alevism Affiliation | 1041 | + + + [...] +------+ + | Care Search Engine Optimization Specialist Name | Role | Phone | + +------+ + | Rick Osorio DO | PCP | | + +------+ + Encounter Details +--------+ + + + + | Date | Type | Department | Care Team | Description | +--------+ + + + + | 11/15/ | Orders Only | [facility] | Emil Oliva MD | | | 2014 | | NEPHROLOGY [place] | [address] OB[address] | | | | | [address] OB[address] | [address] [place], [place] | | | | | [address] [place], [place] | [address] | | | | | [address] | | | | | | [phone] | | | +--------+ + + + [...] | | | | | OBED [place], [place] | | | | | | [address] | | | | | | | [...]
--- OUTSIDE RECORDS SUMMARY | ~2019-09-28 | XMS | Encounter Summary ---
Demographics + + + | Address | [address] | | | [place] [address] | + + + | Home Phone | | + + + | Preferred Language | Unknown | + + + | Marital Status | Single | + + + | Caodaism Affiliation | 1041 | + + + [...] Team Providers + +------+ + | Care Vocational Guidance Counselor Name | Role | Phone | + [...] [address] | Dx) | | | | [place], | [place], [place] | | | | | [place] [address] | [address] | | | | | [phone] | | | +--------+ + + + [...] [place] | | | | | | [address] | | | | | | | | +--------+---------+ + + + documented as of this encounter Visit Diagnoses + + | Diagnosis | + + | Hypoxemia - Primary | + + documented in this encounter
--- OUTSIDE RECORDS SUMMARY | ~2019-09-28 | XMS | Encounter Summary ---
Demographics + + + | Address | [address] | | | [place] [address] | + + + | Home Phone [...] Team Providers + +------+ + | Care Catering Server Name | Role | Phone | + +------+ + | Yovani Santana MD | PCP | | + +------+ + Encounter Details +--------+ + + + + | Date | Type | Department | Care Team | Description | +--------+ + + + + | 03/26/ | Hospital | [facility] | Melendez, Gary, | Hypoxemia; Kyphosis | | 2014 | Encounter | MED CTR PULMONARY | MD [address] | deformity of spine | | | | FUNCTION [address] | [place], [place] | | | | | [place], | [address] | | | | | [place] [address] | | | | | | [phone] | | | +--------+ + + + [...] | | | | | | [facility] | | | | | | [address] | | | | | | | [...] 03/26/14Electronically signed by: Gary Melendez MD [facility]/27/2014 13[facility] | | [facility] | | | |No prior pulmonary function tests available for comparison. | | | |Test performed: 03/26/14 | |Electronically signed by: Gary Melendez MD 03/27/2014 13:24 | |[facility] | + + documented in this encounter Visit Diagnoses + + | Diagnosis | + + | Hypoxemia | + + | Kyphosis deformity of spine Kyphosis (acquired) (postural) | + + documented in this encounter"
--- OUTSIDE RECORDS SUMMARY | ~2019-09-28 | XMS | Encounter Summary ---
Demographics + + + | Address | [address] | | | [place] [address] | + + + | Home Phone [...] Team Providers + +------+ + | Care Cellular Phone Repairer Name | Role | Phone | [...] | | | | | [place], | [address] | | | | | [place] [address] | [phone] | | | | | [phone] | | | +--------+ + + + [...]
--- OUTSIDE RECORDS SUMMARY | ~2019-09-28 | XMS | Encounter Summary ---
Demographics + + + | Address | [address] | | | [place] [address] | + + + | Home Phone | | + + + | Preferred Language | Unknown | + + + | Marital Status | Unknown | + + + | Baptism Affiliation | Unknown | + + + [...] Providers + +------+ + | Care Business Risk Consultant Name | Role | Phone | [...] | 01/28/ | Emergency | [facility] | | | | 2014 | | Department [address] | | | | | [address] | | | | | | [facility] | | | | | | [place], [place] | | | | | | [address] | | | | | | [phone] | | | +--------+ + + + [...]
--- OUTSIDE RECORDS SUMMARY | ~2019-09-28 | XMS | Encounter Summary ---
Demographics + + + | Address | [address] | | | [place] [address] | + + + | Home Phone | | + + + | Preferred Language | Unknown | + + + | Marital Status | Single | + + + | Yazdanism Affiliation | 1041 | + + + | Race | Unknown | + + + | Ethnic Group | Unknown | + + + Author + + + | Author | [facility] | | | and [place] | + + + | Organization | [facility] | | | and [...] Providers + +------+ + | Care Manager Fund Name | Role | Phone | + +------+ + | Yovani Santana MD | PCP | | + +------+ + Encounter Details +--------+ + + + + | Date | Type | Department | Care Team | Description | +--------+ + + + + | 05/10/ | Hospital | [facility] | Gray Melendez, | Hypoxemia; | | 2014 | Encounter | MED CTR XRAY [address] | MD [address] | Restrictive lung | | | | [place] | [place], [place] | disease | | | | [place] [address] | [address] | | | | | [phone] | | | | | | | [...] [place] | | | | | | [address] | | | | | | | [...] + | MISCELLANEOUS LAB | | | [phone] | + +---------+ + + | MISCELANIOUS LAB | | | [phone] | + +---------+ + + documented in this encounter Visit Diagnoses + + | Diagnosis | + + | Hypoxemia | + + | Restrictive lung disease Other diseases of lung, not elsewhere classified | + + documented in this encounter"
--- OUTSIDE RECORDS SUMMARY | ~2019-09-28 | XMS | Encounter Summary ---
Demographics + + + | Address | [address] | | | [place] [address] | + + + | Home Phone [...] Team Providers + +------+ + | Care Hotel Service Manager Name | Role | Phone | [...] [address] | Dx) | | | | [place], | [place], [place] | | | | | [place] [address] | [address] | | | | | [phone] | | | +--------+ + + + [...] [place] | | | | | | [address] | | | | | | | | +--------+---------+ + + + documented as of this encounter Visit Diagnoses + + | Diagnosis | + + | Hypoxemia - Primary | + + documented in this encounter
--- OUTSIDE RECORDS SUMMARY | ~2019-09-28 | XMS | Encounter Summary ---
Demographics + + + | Address | [address] | | | [place] [address] | + + + | Home Phone [...] Team Providers + +------+ + | Care Campaign Associate Name | Role | Phone | + [...] [place], [place] | | | | | [place], [place] | [address] | | | | | [address] | | | | | | [phone] | | | +--------+ + + + [...] | | | | | [place] | | | | | | [address] | | | | | | | [...] + + + | Patient Name: COLE RENST Date of : 1945 | | | [...] 0.03 m/s | | | MV Dec [place]: 9.74 m/s2 MV DecT: 91.63 ms MV E Billy: 0.89 | | | m/s MV E/A Ratio: 26.03 MV PHT: 26.57 ms MVA By PHT: 8.27 | | | cm2 Septal e': 0.06 m/s Septal E/e': 12.90 Lateral e': | | | 0.09 m/s Lateral E/e': 8.96 RAP: 5 mmHg RVSP: 17.59 mmHg | | | TR maxP.59 mmHg TR Vmax: 1.77 m/s Geriatrician: NAIF | | | Authenticated by: Conor [facility] Report Date/Time: -- | | | [id number] | | + + + + + [...] cmLVPWd: 1.14 cmLVOT | | Area: 3.33 [id number] Diam: 2.06 cm%FS: 26.43 %EF(Teich): 51.67 %ESV(Teich): [...] (A-L): | | 45.82 ml/m2LAAs A2C: 22.15 [id number] A-L A2C: 71.25 mlLALs A2C: 5.84 cmLAAs A4C: | | 28.64 [id number] A-L A4C: 104.24 mlLALs A4C: 6.68 cmRAAs: 14.65 [id number] A-L: | | 33.90 mlRAESV MOD: 34.21 mlRALs: 5.37 cmAV maxP.81 mmHgAV meanP.70 | | mmHgAV Vmax: 1.30 m/Sorin Vmean: 0.90 m/Sorin VTI: 24.74 cmAVA Vmax: 2.36 cm2AVA | | (VTI): 2.24 mk8CPTE maxP.41 mmHgLVOT meanP.88 mmHgLVSI Dopp: 27.63 | | ml/m2LVSV Dopp: 55.54 mlLVOT Vmax: 0.92 m/sLVOT Vmean: 0.64 m/sLVOT VTI: 16.66 | | cmMV A Billy: 0.03 m/sMV Dec [place]: 9.74 m/s2MV DecT: 91.63 msMV E Billy: 0.89 m/sMV | | E/A Ratio: 26.03MV PHT: 26.57 msMVA By PHT: 8.27 wl1Gegbqx e': 0.06 m/sSeptal | | E/e': 12.90Lateral e': 0.09 m/sLateral E/e': 8.96RAP: 5 mmHgRVSP: 17.59 mmHgTR | | maxP.59 mmHgTR Vmax: 1.77 m/s Geriatrician: DHAuthenticated by: Ariadnahed | [facility] Date/Time: -- [id number] IMPRESSION: 1. The left ventricle is | [...] A Billy: 0.03 m/s | |MV Dec [place]: 9.74 m/s2 | |MV DecT: 91.63 ms [...] |TR Vmax: 1.77 m/s | | | |Geriatrician: | |Authenticated by: Conor Garcia | |Report Date/Time: -[id number]:12 | | | |IMPRESSION: | |1. The [...]
--- OUTSIDE RECORDS SUMMARY | ~2019-09-28 | XMS | Clinical Summary ---
Demographics + + + | Address | [address] | | | [place] [address] | + + + | Home Phone [...] Team Providers + +------+ + | Care Cath Laboratory Technician Name | Role | Phone [...] Noted Date | + + + | Immunosuppression | [...] | | | | unspecified type | +--------+---------+ + + + from Last [...] | | | | | [place] | | | | | | [address] | | | | | | | [...] | + +--------+ + + + | ECHO-EXTERNAL SCAN | | 07/03/2019 | | Results for this | | [...] MD | | | | | | ([id number]) on 09/28/2019 | | | | | [...] | | | + +---------+ + + ECHO-EXTERNAL SCAN (07/03/2019 12:00 AM PST) + + + | Narrative | Performed At | + + + | Ordered by an | | | unspecified provider. | | + + + from Last 3 Months Insurance [...] | [employer] | [employer] | [id number] | 05/23/19 | | | Medica | | | HEALTH | | 14-Pre | | | re | | | MDCR | | sent | | | | + +--------+ +--------+ +---------+--------+ | [employer] | [employer] | [id number] | 05/23/19 | | | Medica | | | HEALTH | | 19-Pre | | | re | | | MDCR | | sent | | | | + +--------+ +--------+ +---------+--------+ | [employer] | [employer] | [id number] | 05/30/19 | [phone] | | Medica | | MEDICAID HMO [...] | | | | | | | [address] | + +--------+ +--------+ + + | Opal Petty | Person | Self [birth year] | [address] | | [place] | al/Fam | | 1946 | [phone] | | | [place] | | | 1 (Home) | [place] | | | | | | | [address] | + +--------+ +--------+ + + Advance Directives + + + + + | Type | Date Recorded | Patient | Explanation | | | | Card Brusher | | + + + + + | Power of | | | | | Hand Tube Bender | | | | + + + + + | Advance | 05/10/2014 | | | | Directive | 12:33 PM | | | + + + + +
--- OUTSIDE RECORDS SUMMARY | ~2019-09-28 | XMS | Encounter Summary ---
Demographics + + + | Address | [address] | | | [place] [address] | + + + | Home Phone [...] Team Providers + +------+ + | Care Chief Of Hospital Medicine Name | Role | Phone | + [...] Lee | | | | | | [facility] | | | | | | [place], [place] | | | | | | [address] | | | | | | [phone] | | | +--------+ + + + [...]
--- OUTSIDE RECORDS SUMMARY | ~2019-09-28 | XMS | Encounter Summary ---
Demographics + + + | Address | [address] | | | [place] [address] | + + + | Home Phone | | + + + | Preferred Language | Unknown | + + + | Marital Status | Single | + + + | Restorationist Affiliation | 1041 | + + + | Race | Unknown | + + + | Ethnic Group | Unknown | + + + Author + + + | Author | [facility] | | | and [place] | + + + | Organization | [facility] | | [...] Team Providers + +------+ + | Care Permastone Applicator Name | Role | Phone | + +------+ + | Rick Osorio DO | PCP | | + +------+ + Encounter Details +--------+ + + + + | Date | Type | Department | Care Team | Description | +--------+ + + + + | 06/04/ | Orders Only | [facility] | Emil Oliva MD | | | 2013 | | NEPHROLOGY [place] | [address] | | | | | [address] | [address] [place], [place] | | | | | [address] [place], [place] | [address] | | | | | [address] | | | | | | [phone] | | | +--------+ + + + [...] [place] | | | | | | [address] | | | | | | | [...] ETHIOPIAN | | | | | + +-------+ [...]
--- OUTSIDE RECORDS SUMMARY | ~2019-09-28 | XMS | Clinical Summary ---
Demographics + + + | Address | [address] | | | [place] [address] | + + + | Home Phone | | + + + | Preferred Language | Unknown | + + + | Marital Status | Single | + + + | Faith Affiliation | 1041 | + + + | Race | Unknown | + + + | Ethnic Group | Unknown | + + + Author + + + | Author | [facility] | | | and [place] | + + + | Organization | [facility] | | | and [...] Team Providers + +------+ + | Care Shot Man Name | Role | Phone | + [...] | | | | | [place] | | | | | | [address] | | | | | | | [...] MD | | | | | | ([id number]) on 09/28/2019 | | | | | [...] | [employer] | [employer] | [id number] | 05/23/19 | | | Medica | | | HEALTH | | 14-Pre | | | re | | | MDCR | | sent | | | | + +--------+ +--------+ +---------+--------+ | [employer] | [employer] | [id number] | 05/23/19 | | | Medica | | | HEALTH | | 19-Pre | | | re | | | MDCR | | sent | | | | + +--------+ +--------+ +---------+--------+ | [employer] | [employer] | [id number] | 05/30/19 | [phone] | | Medica | | MEDICAID HMO [...] | | | | | | | [address] | + +--------+ +--------+ + + | Opal Petty | Person | Self | [birth year] | [address] | | [place] | al/Fam | | 1946 | [phone] | | | [place] | | | [address] (Home) | [place] | | | | | | | [address] | + +--------+ +--------+ + + Advance Directives + + + + + | Type | Date Recorded | Patient | Explanation | | | | Bus Matron | | + + + + + | Power of | | | | | Supervisor Soakers | | | | + + + + + | Advance | 05/10/2014 | | | | Directive | 12:33 PM | | | + + + + +
--- OUTSIDE RECORDS SUMMARY | ~2019-09-28 | XMS | Encounter Summary ---
Demographics + + + | Address | [address] | | | [place] [address] | + + + | Home Phone [...] Team Providers + +------+ + | Care Dock Attendant Name | Role | Phone | + +------+ + | Rick Osoiro DO | PCP | | + +------+ + Encounter Details +--------+ + + + + | Date | Type | Department | Care Team | Description | +--------+ + + + + | 12/05/ | Orders Only | [facility] | Emil Oliva MD | | | 2013 | | NEPRHOLOGY [place] | [address] [facility] | | | | | [address] | [address] [place], [place] | | | | | [address] [place], [place] | [address] | | | | | [address] | | | | | | [phone] | | | +--------+ + + + [...] [place] | | | | | | [address] | | | | | | | [...]
--- OUTSIDE RECORDS SUMMARY | ~2019-09-28 | XMS | Encounter Summary ---
Demographics + + + | Address | [address] | | | [place] [address] | + + + | Home Phone [...] Providers + +------+ + | Care Flask Cleaner Name | Role | Phone | + +------+ + | Rick Osorio DO | PCP | | + +------+ + Encounter Details +--------+ + + + + | Date | Type | Department | Care Team | Description | +--------+ + + + + | 12/05/ | Orders Only | [facility] | Emil Oliva MD | | | 2013 | | NEPRHOLOGY [place] | [address] [facility] | | | | | [address] | [address] [place], [place] | | | | | [address] [place], [place] | [address] | | | | | [address] | | | | | | [phone] | | | +--------+ + + + [...] [place] | | | | | | [address] | | | | | | | [...]
--- OUTSIDE RECORDS SUMMARY | ~2019-09-28 | XMS | Encounter Summary ---
Demographics + + + | Address | [address] | | | [place] [address] | + + + | Home Phone | | + + + | Preferred Language | Unknown | + + + | Marital Status | Unknown | + + + | Mormonism Affiliation | Unknown | + + + | Race | Unknown | + + + | Ethnic Group | Unknown | + + + Author + + + | Author | [facility] | + + + | Organization | [facility] | + + + | Address | Unknown | + + + | Phone | Unavailable | + + + Care Team Providers + +------+ + | Care Pie Bottomer Name | Role | Phone | + [...] | [address] | [facility] [place] | | | | | [place], | [address] | | | | | [place] [address] | [phone] | | | | | [phone] | | | +--------+ + + + [...] + | [facility] | | | [phone] | | [facility] | | | | + +---------+ + + | [facility] | | [place], [place] | [phone] | | [facility]PITAL | | | | + +---------+ + + documented in this encounter Visit Diagnoses Not on filedocumented in this encounter"
--- OUTSIDE RECORDS SUMMARY | ~2019-09-28 | XMS | Encounter Summary ---
Demographics + + + | Address | [address] | | | [place] [address] | + + + | Home Phone | | + + + | Preferred Language | Unknown | + + + | Marital Status | Unknown | + + + | Advent Affiliation | Unknown | + + + | Race | Unknown | + + + | Ethnic Group | Unknown | + + + Author + + + | Author | [facility] | + + + | Organization | [facility] | + + + | Address | Unknown | + + + | Phone | Unavailable | + + + Care Team Providers + +------+ + | Care Education And Development Manager Name | Role | Phone [...] | | | | | [place], | [place], [place] | | | | | [place] [address] | [address] | | | | | [phone] | | | +--------+ + + + [...]
--- OUTSIDE RECORDS SUMMARY | ~2019-09-28 | XMS | Encounter Summary ---
Demographics + + + | Address | [address] | | | [place] [address] | + + + | Home Phone [...] Team Providers + +------+ + | Care Mill Operator Helper Name | Role | Phone | [...] | | | | | [place], | [place], [place] | | | | | [place] [address] | [address] | | | | | [phone] | | | +--------+ + + + [...]
--- OUTSIDE RECORDS SUMMARY | ~2019-09-28 | XMS | Encounter Summary ---
Demographics + + + | Address | [address] | | | [place] [address] | + + + | Home Phone [...] Team Providers + +------+ + | Care Doll Wig Maker Name | Role | Phone | [...] | | | | | [place], | [place], [place] | | | | | [place] [address] | [address] | | | | | [phone] | | | +--------+ + + + [...]
--- OUTSIDE RECORDS SUMMARY | ~2019-09-28 | XMS | Encounter Summary ---
Demographics + + + | Address | [address] | | | [place] [address] | + + + | Home Phone [...] + + + | Author | [facility] | | | and [place] | + + + | Organization | [facility] | | | [...] Team Providers + +------+ + | Care Bee Breeder Name | Role | Phone | + [...] | | | CONSULT | [place] | [place] [address] | | | | | | [place], [place] | Phone: | | | | | | [address] | [phone] | | | | | | Phone: | Fax: | | | | | | [phone] | [phone] | | | | | | Fax: | | | | | | | [phone] | | +--------+--------+ + + + + [...] | Dx); Kyphosis | | | | [place], | [place], [place] | deformity of spine | | | | [place] [address] | [address] | | | | | [phone] | | | +--------+---------+ + + + [...] oxygen at 2 L per minute at [facility] while she slept. Over [...] copy of the patient's echocardiogram from [facility] will be reviewed. CC: Yovani [...] | | | | | [place] | | | | | | [address] | | | | | | | | +--------+---------+ + + + documented as of this encounter Results PFT PULMONARY FUNCTION TESTING ORDERS Full PFT ([place] w/BD, lung volumes, diffusion)?: Yes; Rest and [...] Melendez MD 03/27/2014 13:24 | | | [facility] | | + + + + [...] signed by: Gary Melendez MD 03/27/2014 13:24[facility] | | [facility] | | | |No prior pulmonary function tests available for comparison. | | | |Test performed: 03/26/14 | |Electronically signed by: Gary Melendez MD 03/27/2014 13:24 | |[facility] | + + documented in this encounter Visit Diagnoses + + | Diagnosis | + + | Hypoxemia - Primary | + + | Kyphosis deformity of spine Kyphosis (acquired) (postural) | + + documented in this encounter
--- OUTSIDE RECORDS SUMMARY | ~2019-09-28 | XMS | Encounter Summary ---
Demographics + + + | Address | [address] | | | [place] [address] | + + + | Home Phone [...] + + + | Author | [facility] | | | and [place] | + + + | Organization | [facility] | | [...] Team Providers + +------+ + | Care Bobbin Winder Name | Role | Phone | + [...] [place], [place] | | | | | [place], [place] | [address] | | | | | [address] | | | | | | [phone] | | | +--------+ + + + [...] | | | | | [place] | | | | | | [address] | | | | | | | [...] 0.03 m/s | | | MV Dec Whitley: 9.74 m/s2 MV DecT: 91.63 ms MV E Billy: 0.89 | | | m/s MV E/A Ratio: 26.03 MV PHT: 26.57 ms MVA By PHT: 8.27 | | | cm2 Septal e': 0.06 m/s Septal E/e': 12.90 Lateral e': | | | 0.09 m/s Lateral E/e': 8.96 RAP: 5 mmHg RVSP: 17.59 mmHg | | | TR maxP.59 mmHg TR Vmax: 1.77 m/s Supervisor Blood Donor Recruiters: NAIF | | | Authenticated by: Conor [facility] Report Date/Time: -- | | | [id number] | | + + + + + [...] cmLVPWd: 1.14 cmLVOT | | Area: 3.33 tq2KGUE Diam: 2.06 cm%FS: 26.43 %EF(Teich): 51.67 %ESV(Teich): [...] (A-L): | | 45.82 ml/m2LAAs A2C: 22.15 [id number] A-L A2C: 71.25 mlLALs A2C: 5.84 cmLAAs A4C: | | 28.64 [id number] A-L A4C: 104.24 mlLALs A4C: 6.68 cmRAAs: 14.65 [id number] A-L: | | 33.90 mlRAESV MOD: 34.21 mlRALs: 5.37 cmAV maxP.81 mmHgAV meanP.70 | | mmHgAV Vmax: 1.30 m/Sorin Vmean: 0.90 m/Sorin VTI: 24.74 cmAVA Vmax: 2.36 cm2AVA | | (VTI): 2.24 rf9DGAO maxP.41 mmHgLVOT meanP.88 mmHgLVSI Dopp: 27.63 | | ml/m2LVSV Dopp: 55.54 mlLVOT Vmax: 0.92 m/sLVOT Vmean: 0.64 m/sLVOT VTI: 16.66 | | cmMV A Billy: 0.03 m/sMV Dec Whitley: 9.74 m/s2MV DecT: 91.63 msMV E Billy: 0.89 m/sMV | | E/A Ratio: 26.03MV PHT: 26.57 msMVA By PHT: 8.27 ev5Lpkale e': 0.06 m/sSeptal | | E/e': 12.90Lateral e': 0.09 m/sLateral E/e': 8.96RAP: 5 mmHgRVSP: 17.59 mmHgTR | | maxP.59 mmHgTR Vmax: 1.77 m/s Supervisor Blood Donor Recruiters: DHAuthenticated by: Ariadnahed | | [facility] Date/Time: -- [id number] IMPRESSION: 1. The left ventricle is | [...] A Billy: 0.03 m/s | |MV Dec Whitley: 9.74 m/s2 | |MV DecT: 91.63 ms [...] |TR Vmax: 1.77 m/s | | | |Supervisor Blood Donor Recruiters: | |Authenticated by: Conor Garcia | |Report Date/Time: -[id number] | | | |IMPRESSION: | |1. The [...]
--- OUTSIDE RECORDS SUMMARY | ~2019-09-28 | XMS | Encounter Summary ---
Demographics + + + | Address | [address] | | | [place] [address] | + + + | Home Phone [...] Team Providers + +------+ + | Care V Belt Builder Name | Role | Phone | + +------+ + | Yovani Santana MD | PCP | | + +------+ + Encounter Details +--------+ + + + + | Date | Type | Department | Care Team | Description | +--------+ + + + + | 01/28/ | Hospital | [facility] | Jacob Smith, | | | 2014 - | Encounter | [facility] | MD Carmelo SANTAMARIA | | | | | CARE FLOOR [address] | [place] [address] | | | 02/03/ | | TIERA SANTAMARIA | [phone] | | | 2014 | | [place], [place] | | | | | | [address] | | | | | | [phone] | | | +--------+ + + + [...] Date of Service: 02/03/15 1029 Status: Signed Sales Professional: Jose Maria Espinal MD (Physician) Related Notes: Original Note by Jose Maria Espinal MD (Physician) filed at 02/04/15 1345 [facility]: Hospitalist Physician Discharge Summary Patient [...] 2-4 lpm, Presented as a transfer from [facility] in [place] for fever of 101 and altered mental s tatus. She was discharged from [facility] on 01/09/15 for elevated troponin and [...] antibiotics. She was brought back in to [facility] for fever and confusion. UA and CXR reportedly negative there. SBP was 90s. She had formed stool there but en route here she did develop watery stool, tested C diff + here.".......per admitting MD/Dr. Smith . The patient was admitted to [facility] with a diagnosis of Clostridium difficile infection while she was being transferred from [facility] with fever and altered mental status. Th e patient has underlying immunosuppression secondary to a remote history of liver transplant on chronic immunosuppressive therapy with azathioprine and cyclosporin. Following her trans fletcher to [facility], she was started on oral vancomycin [...] medically stable for discharge to return to [facility] in [place] on Jan. ADDITIONAL ISSUES 1. Recurrent atelectasis. [...] usp facility where the patient resides in [facility] to check anothe r magnesium [...] Procedure: COLONOSCOPY; Surgeon: Juan Ramey MD; Location: [facility] ENDOSCOPY; Service: Gastroenterology; Laterality: N/A; Discharged [...] Follow up: Ki De Jesus DO [address] [facility] [address] [place] [id number] Schedule an appointment as soon as possible [...] to Get Your Medications You need to apple picker these prescriptions. We sent some of them to a specific pharmacy. Go t o these places to get your medications. [facility] - [place], [place] - [address] - lactobacillus granules [address] [place] [address] You may get the following medications from [...] Management by Pedro Partida RN at 02/03/15 4464 Author: Pedro Partida RN Service: (none) Author Type: Registered Nurse Filed: 02/03/15 6040 Date of Service: 02/03/151608 Status: Signed Sales Professional: Pedro Partida RN (Registered Nurse) 02/03/15 160 Discharge Planning Evaluation Admitting Diagnosis Elevated temp, [...] Oriented Anticipated Disposition Facility Type halfway facility [facility] Other (comment[facility] ([facility] in [place]) Disposition: Return to [facility] Transportation: Facility van to transport. All [...] Date of Service: 02/02/15 1522 Status: Signed Sales Professional: Jose Maria Espinal MD (Physician) Related Notes: Original Note by Jose Maria Espinal MD (Physician) filed at 02/02/15 1950 [facility]: Hospitalist Progress Note Pt: Cole Ernst AGE/SEX: 69 y.o. female : 1945 ROOM: [address] [place] [address] History of Present Illness: " The patient is a 69 y.o. female with significant past medical history of liver transplant int he 90s on cyclosporine and imuran, chronic pain on methadone, CKD st 3, chronic home O2 of unclear etiology from 2-4 lpm, Presented as a transfer from [facility] in [place] for fever of 101 and altered mental s tatus. She was discharged from [facility] on 01/09/15 for elevated troponin and [...] antibiotics. She was brought back in to [facility] for fever and confusion. UA and [...] establishing readiness of the faci lity in [place] to accept the patient in the next [...] contrast. Prior study for comparison: None FINDINGS: Family Practice Md 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 deg enerative changes of [...] LA/Ao: 1.57 D-E Excursion: 2.11 cm E-F Cecil: 0.09 m/s EPSS: 0.48 cm HR: 77.41 [...] TV A Billy: 0.66 m/s TV Dec Cecil: 4.36 m/s2 TV Dec Time: 184.41 ms TV E Billy: 0.80 m/s TV E/A Rat io: 1.21 Head Start Coordinator: NEDRA Authenticated by: Gil Martines MD Report [...] Procedure: COLONOSCOPY; Surgeon: Juan Ramey MD; Location: [facility] ENDOSCOPY; Service: Gastroenterology; Laterality: N/A; PROBLEM [...] by Jose Maria Espinal MD at 02/01/15 0652 Author: Jose Maria Espinal MD Service: Hospitalist Author Type: Physician Filed: 02/02/15 1521 Date of Service: 02/01/151716 Status: Signed Sales Professional: Jose Maria Espinal MD (Physician) Related Notes: Original Note by Jose Maria Espinal MD (Physician) filed at 02/02/15 0177 [facility]: Hospitalist Progress Note Pt: Cole Ernst AGE/SEX: 69 y.o. female : 1945 ROOM: [address] [place] [address] History of Present Illness: " The patient is a 69 y.o. female with significant past medical history of liver transplant int he 90s on cyclosporine and imuran, chronic pain on methadone, CKD st 3, chronic home O2 of unclear etiology from 2-4 lpm, Presented as a transfer from [facility] in [place] for fever of 101 and altered mental s tatus. She was discharged from [facility] on 01/09/15 for elevated troponin and [...] antibiotics. She was brought back in to [facility] for fever and confusion. UA and [...] establishing readiness of the faci lity in [place] to accept the patient in the next [...] contrast. Prior study for comparison: None FINDINGS: Family Practice Md 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 deg enerative changes of [...] LA/Ao: 1.57 D-E Excursion: 2.11 cm E-F Cecil: 0.09 m/s EPSS: 0.48 cm HR: 77.41 [...] TV A Billy: 0.66 m/s TV Dec Cecil: 4.36 m/s2 TV Dec Time: 184.41 ms TV E Billy: 0.80 m/s TV E/A Rat io: 1.21 Head Start Coordinator: NEDRA Authenticated by: Gil Martines MD Report [...] Procedure: COLONOSCOPY; Surgeon: Juan Ramey MD; Location: [facility] ENDOSCOPY; Service: Gastroenterology; Laterality: N/A; PROBLEM [...] Currently with normal liver function tests. 3. Zazvo-hj-ksqwdxv liver disease, stage III. Creatinine level has [...] 01/31/152124 Date of Service: 01/31/151513 Status: Signed Sales Professional: Jose Maria Espinal MD (Physician) Related Notes: Original Note by Jose Maria Espinal MD (Physician) filed at 01/31/15 1523 [facility]: Hospitalist Progress Note Pt: Cole Ernst AGE/SEX: 69 y.o. female : 1945 ROOM: [address] [place] [address] History of Present Illness: " The patient is a 69 y.o. female with significant past medical history of liver transplant int he 90s on cyclosporine and imuran, chronic pain on methadone, CKD st 3, chronic home O2 of unclear etiology from 2-4 lp, Presented as a transfer from [facility] in [place] for fever of 101 and altered mental s tatus. She was discharged from [facility] on 01/09/15 for elevated troponin and [...] antibiotics. She was brought back in to [facility] for fever and confusion. UA and [...] contrast. Prior study for comparison: None FINDINGS: Family Practice Md 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 deg enerative changes of [...] LA/Ao: 1.57 D-E Excursion: 2.11 cm E-F Cecil: 0.09 m/s EPSS: 0.48 cm HR: 77.41 [...] TV A Billy: 0.66 m/s TV Dec Cecil: 4.36 m/s2 TV Dec Time: 184.41 ms TV E Billy: 0.80 m/s TV E/A Rat io: 1.21 Head Start Coordinator: NEDRA Authenticated by: Gil Martines MD Report [...] Procedure: COLONOSCOPY; Surgeon: Juan Ramey MD; Location: [facility] ENDOSCOPY; Service: Gastroenterology; Laterality: N/A; PROBLEM [...] 01/31/151312 Date of Service: 01/31/151312 Status: Signed Sales Professional: Catina Moon () Attempted visit. Pt sitting in chair sleeping. No family present. Chaplain Catina Moon onver alessandro Transaction, Provider Unknown - 01/31/2015 11:35 AM PDT Therapy Progress Note by Mahi Yanes PTA at 01/31/15 0134 Author: Mahi Yanes PTA Service: (none) Author Type: [place] Filed: 01/31/15 2470 Date of Service: 01/31/151134 Status: Signed Sales Professional: Mahi Yanes PTA ([place]) 01/31/15 1132 PT Last Visit PT Received On 01/31/15 [...] PDT Case Management by Gregg Keene MS, TRACK MACHINE OPERATOR REPAIRER at 01/31/15 1007 Author: Gregg Keene MS, TRACK MACHINE OPERATOR REPAIRER Service: (none) Author Type: Floor And Wall Applier Liquid Filed: 01/31/15 1546 Date of Service: 01/31/15 1007 Status: Addendum Sales Professional: Gregg Keene MS, TRACK MACHINE OPERATOR REPAIRER (Floor And Wall Applier Liquid) Related Notes: Original Note by Gregg Keene MS, TRACK MACHINE OPERATOR REPAIRER (Floor And Wall Applier Liquid) filed at 01/31/15 1007 Discharge planning - CM faxed updated clinical to Gi at [facility]. Discharge form s on front of chart for MD signature. CM notified Gi of anticipated d/c this weekend. onver alessandro Transaction, Provider Unknown - 01/30/2015 5:05 PM PDT Therapy Progress Note by Gail Vernon PT at 01/30/151704 Author: Gail Vernon PT Service: (none) Author Type: Physical Therapist Filed: 01/30/15 1758 Date of Service: 01/30/151704 Status: Signed Sales Professional: Gail Vernon PT (Physical Therapist) 01/30/151704 PT [...] by Jose Maria Espinal MD at 01/30/15 2915 Author: Jose Maria Espinal MD Service: Hospitalist Author Type: Physician Filed: 01/31/15 1050 Date of Service: 01/30/154 Status: Signed Sales Professional: Jose Maria Espinal MD (Physician) Related Notes: Original Note by Jose Maria Espinal MD (Physician) filed at 01/30/15 9634 [facility]: Hospitalist Progress Note Pt: Cole Ernst AGE/SEX: 69 y.o. female : 1945 ROOM: [facility]/6601-1 History of Present Illness: " The patient is a 69 y.o. female with significant past medical history of liver transplant int he 90s on cyclosporine and imuran, chronic pain on methadone, CKD st 3, chronic home O2 of unclear etiology from 2-4 lpm, Presented as a transfer from [facility] in [place] for fever of 101 and altered mental s tatus. She was discharged from [facility] on 01/09/15 for elevated troponin and [...] antibiotics. She was brought back in to [facility] for fever and confusion. UA and [...] contrast. Prior study for comparison: None FINDINGS: Family Practice Md 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 deg enerative changes of [...] LA/Ao: 1.57 D-E Excursion: 2.11 cm E-F Cecil: 0.09 m/s EPSS: 0.48 cm HR: 77.41 [...] TV A Billy: 0.66 m/s TV Dec Cecil: 4.36 m/s2 TV Dec Time: 184.41 ms TV E Billy: 0.80 m/s TV E/A Rat io: 1.21 Head Start Coordinator: NEDRA Authenticated by: Gil Martines MD Report [...] Procedure: COLONOSCOPY; Surgeon: Juan Ramey MD; Location: [facility] END[facility]COPY; Service: Gastroenterology; Laterality: N/A; PROBLEM [...] Patient's live r functions remain normal. 3. Rmqcz-pd-zjcpgsm kidney disease stage III. Creatinine level has [...] by Jose Maria Espinal MD at 01/29/15 4851 Author: Jose Maria Espinal MD Service: Hospitalist Author Type: Physician Filed: 01/30/15 0957 Date of Service: 01/29/15 1651 Status: Signed Sales Professional: Jose Maria Espinal MD (Physician) Related Notes: Original Note by Jose Maria Espinal MD (Physician) filed at 01/29/152024 [facility]: Hospitalist Progress Note Pt: Cole Ernst AGE/SEX: 69 y.o. female : 1945 ROOM: [address] [place] [address] History of Present Illness: " The patient is a 69 y.o. female with significant past medical history of liver transplant int he 90s on cyclosporine and imuran, chronic pain on methadone, CKD st 3, chronic home O2 of unclear etiology from 2-4 lp, Presented as a transfer from [facility] in [place] for fever of 101 and altered mental s tatus. She was discharged from [facility] on 01/09/15 for elevated troponin and [...] antibiotics. She was brought back in to [facility] for fever and confusion. UA and [...] contrast. Prior study for comparison: None FINDINGS: Family Practice Md 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 deg enerative changes of [...] LA/Ao: 1.57 D-E Excursion: 2.11 cm E-F Cecil: 0.09 m/s EPSS: 0.48 cm HR: 77.41 [...] TV A Billy: 0.66 m/s TV Dec Cecil: 4.36 m/s2 TV Dec Time: 184.41 ms TV E Billy: 0.80 m/s TV E/A Rat io: 1.21 Head Start Coordinator: NEDRA Authenticated by: Gil Martines MD Report [...] Procedure: COLONOSCOPY; Surgeon: Juan Ramey MD; Location: [facility]COPY; Service: Gastroenterology; Laterality: N/A; PROBLEM [...] Management by Pedro Partida RN at 01/29/15 0444 Author: Pedro Partida RN Service: (none) Author Type: Registered Nurse Filed: 01/29/15 1541 Date of Service: 01/29/15 1525 Status: Signed Sales Professional: Pedro Partida RN (Registered Nurse) 01/29/15 152 [...] Oriented Anticipated Disposition Facility Type halfway facility [facility] Other (comment) ([facility] in [place]) Met with: patient and discussed discharge planning, Pt is a 69 y.o., female who was discharged from [facility] 2 wee ks ago to [facility]. Her sister, Renée Tipton is emergency contact, . Patient's PCP is: KI DE JESUS Patient's insurance: Medicare Coverage concerns: Medication coverage/concerns: Community resources utilized / needed: Assistance in transportation: Identification of any specific education / training: Barriers to Discharge / Alternative housing needed: Anticipated DCP: Return to [facility] PEDRO PARTIDA RN onver alessandro Transaction, Provider Unknown - 01/29/2015 8:55 AM PDT Therapy Progress Note by Barbara Edmond PT at 01/29/15 0896 Author: Barbara Edmond PT Service: (none) Author Type: Physical Therapist Filed: 01/29/15 0933 Date of Service: 01/29/15 0855 Status: Signed Sales Professional: Barbara Edmond PT (Physical Therapist) 01/29/15854 PT [...] to SNF after current hospital stay. Just [employer] Júnior ADL's and Júnior mobility using 4ww for short room distances, had been using manual w/c in hallway at SNF. Reports a few falls at facility ov er last week, otherwise denies falls over last 6mos. Was getting therapies at facility. Prior Function Level of [place] Modified independent with ADLs;Modified independent with functional [...] Barriers to Discharge Physical Deficits Impacting Functional [place];Self-care Deficit s Impacting Functional [place];Equipment Needs (see comment);Pain Recommendation Comments Needs return [...] Barriers to Discharge Physical Deficits Impacting Functional [place];Self-care Deficit s Impacting Functional [place];Equipment Needs (see comment);Pain Recommendation Comments Needs return [...] 01/29/15831 Date of Service: 01/29/15830 Status: Signed Sales Professional: Malick Ramos RN (Registered Nurse) Infection Prevention Note: Patient stool is positive for C. Diff. Contact Enteric Precautions are required until furt her notice. Thank you. Malick Ramos RN, BA, Plastics Fitter onver alessandro Transaction, Provider Unknown - 01/28/2015 3:23 PM PDT Progress Notes by Jimena Duarte RPH at 01/28/15 1523 Author: Jimena Duarte RPH Service: (none) Author Type: Pharmacist Filed: 01/28/151522 Date of Service: 01/28/151522 Status: Signed Sales Professional: Jimena Duarte RPH (Pharmacist) Zosyn Extended Infusion Initial Consult-Per Dr. Jacob Ernst 69 y.o. female CrCl cannot be calculated (Unknown ideal weight.). NEUTROPHILS ABS Date Value Ref Range Status 01/18/2015 3.26 1.90 - 7.40 K/uL Final Comment: Testing performed at [facility], [address] [place] [address] CREATININE Date Value Ref Range Status 01/19/2015 0.96 0.50 - 1.00 mg/dL Final Comment: Testing performed at [facility], [address] [place] [address] Zosyn extended Infusion loading and maintenance dose guidelines Loading Dose 4.5 g IV Over 30 minutes CrCl >20 ml/min 3.375 g IV Q 8 hours Over 4 hours CrCl 10-20 ml/min 3.375 g IV Q 12 hours Over 4 hours CrCl <10, HD, PD Follow [facility] Dosage Adjustments in Renal Dysfunction Protocol [...] 01/28/151515 Date of Service: 01/28/151515 Status: Signed Sales Professional: Jimena Duarte RPH (Pharmacist) Renal Dosing Monitoring: [...] | | | | | [place] | | | | | | [id number] | | | | | | | [...] EXTERNAL | | | | performed at [facility], [address] | K/uL | LAB | | | | [address] [place], | | | | | | [place] [address] | | | | + + + + + + | Red Blood | 2.72 (L)Comment: Testing | 3.70 - 5.10 | EXTERNAL | | | Cells | performed at [facility], [address] | M/uL | LAB | | | Counted | [address], | | | | | | [place] [address] | | | | + + + + + + | Hemoglobin | 9.6 (L)Comment: Testing | 11.3 - 15.5 | EXTERNAL | | | | performed at [facility], [address] | g/dL | LAB | | | | [address], | | | | | | [place] [address] | | | | + + + + + + | Hematocrit, | 28.8 (L)Comment: Testing | 34.0 - 46.0 % | EXTERNAL | | | POC | performed at [facility], [address] | | LAB | | | | [address], | | | | | | [place] [address] | | | | + + + + + + | MCV | 106.0 (H)Comment: | 80.0 - 100.0 fl | EXTERNAL | | | | Testing performed at | | LAB | | | | [facility], [address] | | | | | | [place] | | | | | | [address] | | | | + + + + + + | MCH | 35.2 (H)Comment: Testing | 27.0 - 34.0 pg | EXTERNAL | | | | performed at [facility], [address] | | LAB | | | | [address], | | | | | | [place] [address] | | | | + + + + + + | MCHC | 33.2Comment: Testing | 32.0 - 35.5 | EXTERNAL | | | | performed at [facility], [address] | g/dL | LAB | | | | [address], | | | | | | [place] [address] | | | | + + + + + + | RDW-CV | 53.4 (H)Comment: Testing | 37 - 53 fl | EXTERNAL | | | | performed at [facility], [address] | | LAB | | | | [address], | | | | | | [place] [address] | | | | + + + + + + | Platelet | 216Comment: Testing | 150 - 400 K/uL | EXTERNAL | | | Count | performed at [facility], [address] | | LAB | | | Plasma | [address], | | | | | | [place] [address] | | | | + + + + + + | MPV | 10.5Comment: Testing | fl | EXTERNAL | | | | performed at [facility], [address] | | LAB | | | | [address], | | | | | | [place] [address] | | | | + + + + + + | Differentia | MANUALComment: Testing | | EXTERNAL | | | l Type | performed at [facility], [address] | | LAB | | | | [address], | | | | | | [place], [place] [address] | | | | + + + + + + | Segmented | 35Comment: Testing | % | EXTERNAL | | | Neutrophils | performed at [facility], [address] | | LAB | | | Manual | [address], | | | | | | [place], [place] [address] | | | | + + + + + + | % Bands | 1Comment: Testing | % | EXTERNAL | | | | performed at [facility], [address] | | LAB | | | | [address], | | | | | | [place], [place] [address] | | | | + + + + + + | Lymphocytes | 44Comment: Testing | % | EXTERNAL | | | Manual | performed at [facility], [address] | | LAB | | | | [address], | | | | | | [place] [address] | | | | + + + + + + | Monocytes | 12Comment: Testing | % | EXTERNAL | | | Manual | performed at [facility], [address] | | LAB | | | | [address], | | | | | | [place] [address] | | | | + + + + + + | Eosinophils | 8Comment: Testing | % | EXTERNAL | | | Manual | performed at [facility], [address] | | LAB | | | | [address], | | | | | | [place] [address] | | | | + + + + + + | Absolute | 3.08Comment: Testing | 1.90 - 7.40 | EXTERNAL | | | Neutrophils | performed at [facility], [address] | K/uL | LAB | | | | [address], | | | | | | [place] [address] | | | | + + + + + + | Bands | 0.09Comment: Testing | 0.00 - 0.20 | EXTERNAL | | | Manual | performed at [facility], [address] | K/uL | LAB | | | | [address], | | | | | | [place] [address] | | | | + + + + + + | Absolute | 3.88Comment: Testing | 1.00 - 3.90 | EXTERNAL | | | Lymphocytes | performed at [facility], [address] | K/uL | LAB | | | | [address], | | | | | | [place] [address] | | | | + + + + + + | Absolute | 1.06 (H)Comment: Testing | 0.00 - 0.80 | EXTERNAL | | | Monocytes | performed at [facility], [address] | K/uL | LAB | | | | [address], | | | | | | [place] [address] | | | | + + + + + + | Absolute | 0.70 (H)Comment: Testing | 0.00 - 0.50 | EXTERNAL | | | Eosinophils | performed at [facility], [address] | K/uL | LAB | | | | [address] [facility], | | | | | | [place] [address] | | | | + + + + + + | RBC | NORMAL PLT MORPHComment: | | EXTERNAL | | | Morphology | NORMAL RBC MORPHTesting | | LAB | | | | performed at [facility], [address] | | | | | | [address] [facility], | | | | | | [place] [address] | | | | + + + [...] EXTERNAL | | | | performed at [facility], [address] | | LAB | | | | [address], | | | | | | [place] [address] | | | | + + + [...] EXTERNAL | | | | performed at [facility], [address] | | LAB | | | | [address], | | | | | | [place] [address] | | | | + + + [...] | | | | | [place] [address] | | | | + + + + + + | K | 4.0Comment: Testing | 3.5 - 4.9 | EXTERNAL | | | | performed at [facility], [address] | mmol/L | LAB | | | | [address], | | | | | | [place] [address] | | | | + + + + + + | Cl | 102Comment: Testing | 99 - 109 mmol/L | EXTERNAL | | | | performed at [facility], [address] | | LAB | | | | [address], | | | | | | [place] [address] | | | | + + + + + + | CO2 | 33 (H)Comment: Testing | 23 - 32 mmol/L | EXTERNAL | | | | performed at [facility], [address] | | LAB | | | | [address], | | | | | | [place] [address] | | | | + + + + + + | Anion Gap | 5Comment: Testing | 5 - 20 mmol/L | EXTERNAL | | | | performed at [facility], [address] | | LAB | | | | [address], | | | | | | [place] [address] | | | | + + + + + + | Glucose, | 105 (H)Comment: Testing | 65 - 99 mg/dL | EXTERNAL | | | Fasting | performed at [facility], [address] | | LAB | | | | [address], | | | | | | [place] [address] | | | | + + + + + + | BUN | 9Comment: Testing | 8 - 25 mg/dL | EXTERNAL | | | | performed at [facility], [address] | | LAB | | | | [address], | | | | | | [place] [address] | | | | + + + + + + | Creatinine | 0.82Comment: Testing | 0.50 - 1.00 | EXTERNAL | | | | performed at [facility], [address] | mg/dL | LAB | | | | [address], | | | | | | [place] [address] | | | | + + + + + + | BUN/Creatin | 11Comment: Testing | | EXTERNAL | | | ine Ratio | performed at [facility], [address] | | LAB | | | | [address], | | | | | | [place] [address] | | | | + + + + + + | Calcium | 8.5Comment: Testing | 8.5 - 10.5 | EXTERNAL | | | | performed at [facility], [address] | mg/dL | LAB | | | | [address], | | | | | | [place] [address] | | | | + + + [...] | | | | | [place] [address] | | | | + + + + + + | Globulin | 3.5Comment: Testing | 1.3 - 4.9 g/dL | EXTERNAL | | | | performed at [facility], [address] | | LAB | | | | [address], | | | | | | [place] [address] | | | | + + + + + + | A/G Ratio | 0.8 (L)Comment: Testing | 1.0 - 2.4 | EXTERNAL | | | | performed at [facility], [address] | | LAB | | | | [address], | | | | | | [place] [address] | | | | + + + + + + | Bilirubin | 0.5Comment: Testing | 0.1 - 1.5 mg/dL | EXTERNAL | | | Total | performed at [facility], [address] | | LAB | | | | [address], | | | | | | [place] [address] | | | | + + + + + + | ALP, | 102Comment: Testing | 35 - 115 U/L | EXTERNAL | | | External | performed at [facility], [address] | | LAB | | | | [address], | | | | | | [place] [address] | | | | + + + + + + | AST | 53 (H)Comment: Testing | 10 - 45 U/L | EXTERNAL | | | | performed at [facility], [address] | | LAB | | | | [address], | | | | | | [place] [address] | | | | + + + + + + | ALT | 21Comment: Testing | 10 - 65 U/L | EXTERNAL | | | | performed at [facility], [address] | | LAB | | | | [address], | | | | | | [place] [address] | | | | + + + [...] | | | | | [place] [address] | | | | + + + [...] EXTERNAL | | | | performed at [facility];888 | mmol/L | LAB | | | | [address];[place], [place] | | | | | | [address] | | | | + + + [...] EXTERNAL | | | | performed at [facility] | | LAB | | | | [facility];[place], [place] | | | | | | [address] | | | | + + + [...] EXTERNAL | | | | performed at [facility], [address] | K/uL | LAB | | | | [address], | | | | | | [place] [address] | | | | + + + + + + | Red Blood | 2.78 (L)Comment: Testing | 3.70 - 5.10 | EXTERNAL | | | Cells | performed at [facility], [address] | M/uL | LAB | | | Counted | [address], | | | | | | [place] [address] | | | | + + + + + + | Hemoglobin | 9.7 (L)Comment: Testing | 11.3 - 15.5 | EXTERNAL | | | | performed at [facility], [address] | g/dL | LAB | | | | [address], | | | | | | [place] [address] | | | | + + + + + + | Hematocrit, | 29.6 (L)Comment: Testing | 34.0 - 46.0 % | EXTERNAL | | | POC | performed at [facility], [address] | | LAB | | | | [address], | | | | | | [place] [address] | | | | + + + + + + | MCV | 106.3 (H)Comment: | 80.0 - 100.0 fl | EXTERNAL | | | | Testing performed at | | LAB | | | | [facility], [address] | | | | | | [place] | | | | | | [address] | | | | + + + + + + | MCH | 34.8 (H)Comment: Testing | 27.0 - 34.0 pg | EXTERNAL | | | | performed at [facility], [address] | | LAB | | | | [address], | | | | | | [place] [address] | | | | + + + + + + | MCHC | 32.8Comment: Testing | 32.0 - 35.5 | EXTERNAL | | | | performed at [facility], [address] | g/dL | LAB | | | | [address], | | | | | | [place] [address] | | | | + + + + + + | RDW-CV | 53.8 (H)Comment: Testing | 37 - 53 fl | EXTERNAL | | | | performed at [facility], [address] | | LAB | | | | [address], | | | | | | [place] [address] | | | | + + + + + + | Platelet | 181Comment: Testing | 150 - 400 K/uL | EXTERNAL | | | Count | performed at [facility], [address] | | LAB | | | Plasma | [address], | | | | | | [place] [address] | | | | + + + + + + | MPV | 11.3Comment: Testing | fl | EXTERNAL | | | | performed at [facility], [address] | | LAB | | | | [address], | | | | | | [place] [address] | | | | + + + + + + | Differentia | MANUALComment: Testing | | EXTERNAL | | | l Type | performed at [facility], [address] | | LAB | | | | [address], | | | | | | [place] [address] | | | | + + + + + + | Segmented | 45Comment: Testing | % | EXTERNAL | | | Neutrophils | performed at [facility], [address] | | LAB | | | Manual | [address], | | | | | | [place] [address] | | | | + + + + + + | % Bands | 1Comment: Testing | % | EXTERNAL | | | | performed at [facility], [address] | | LAB | | | | [address], | | | | | | [place] [address] | | | | + + + + + + | Lymphocytes | 35Comment: Testing | % | EXTERNAL | | | Manual | performed at [facility], [address] | | LAB | | | | [address], | | | | | | [place] [address] | | | | + + + + + + | Monocytes | 11Comment: Testing | % | EXTERNAL | | | Manual | performed at [facility], [address] | | LAB | | | | [address], | | | | | | [place] [address] | | | | + + + + + + | Eosinophils | 8Comment: Testing | % | EXTERNAL | | | Manual | performed at [facility], [address] | | LAB | | | | [address], | | | | | | [place] [address] | | | | + + + + + + | Absolute | 3.85Comment: Testing | 1.90 - 7.40 | EXTERNAL | | | Neutrophils | performed at [facility], [address] | K/uL | LAB | | | | [address], | | | | | | [place] [address] | | | | + + + + + + | Bands | 0.09Comment: Testing | 0.00 - 0.20 | EXTERNAL | | | Manual | performed at [facility], [address] | K/uL | LAB | | | | [address], | | | | | | [place] [address] | | | | + + + + + + | Absolute | 3.01Comment: Testing | 1.00 - 3.90 | EXTERNAL | | | Lymphocytes | performed at [facility], [address] | K/uL | LAB | | | | [address], | | | | | | [place] [address] | | | | + + + + + + | Absolute | 0.95 (H)Comment: Testing | 0.00 - 0.80 | EXTERNAL | | | Monocytes | performed at [facility], [address] | K/uL | LAB | | | | [address], | | | | | | [place] [address] | | | | + + + + + + | Absolute | 0.69 (H)Comment: Testing | 0.00 - 0.50 | EXTERNAL | | | Eosinophils | performed at [facility], [address] | K/uL | LAB | | | | [address], | | | | | | [place] [address] | | | | + + + + + + | RBC | 2+Comment: MACRONORMAL | | EXTERNAL | | | Morphology | PLT MORPHTesting | | LAB | | | | performed at [facility], [address] | | | | | | [address], | | | | | | [place] [address] | | | | | | | [...] EXTERNAL | | | | performed at [facility], [address] | | LAB | | | | [facility], | | | | | | [place] [address] | | | | + + + [...] | | | | | [place] [address] | | | | + + + [...] | | | | | [place] [address] | | | | + + + + + + | K | 3.2 (L)Comment: Testing | 3.5 - 4.9 | EXTERNAL | | | | performed at [facility], [address] | mmol/L | LAB | | | | [address], | | | | | | [place] [address] | | | | + + + + + + | Cl | 103Comment: Testing | 99 - 109 mmol/L | EXTERNAL | | | | performed at [facility], [address] | | LAB | | | | [address], | | | | | | [place] [address] | | | | + + + + + + | CO2 | 31Comment: Testing | 23 - 32 mmol/L | EXTERNAL | | | | performed at [facility], [address] | | LAB | | | | [address], | | | | | | [place] [address] | | | | + + + + + + | Anion Gap | 7Comment: Testing | 5 - 20 mmol/L | EXTERNAL | | | | performed at [facility], [address] | | LAB | | | | [address], | | | | | | [place] [address] | | | | + + + + + + | Glucose, | 104 (H)Comment: Testing | 65 - 99 mg/dL | EXTERNAL | | | Fasting | performed at [facility], [address] | | LAB | | | | [address], | | | | | | [place] [address] | | | | + + + + + + | BUN | 10Comment: Testing | 8 - 25 mg/dL | EXTERNAL | | | | performed at [facility], [address] | | LAB | | | | [address], | | | | | | [place] [address] | | | | + + + + + + | Creatinine | 0.83Comment: Testing | 0.50 - 1.00 | EXTERNAL | | | | performed at [facility], [address] | mg/dL | LAB | | | | [address], | | | | | | [place] [address] | | | | + + + + + + | BUN/Creatin | 12Comment: Testing | | EXTERNAL | | | ine Ratio | performed at [facility], [address] | | LAB | | | | [address], | | | | | | [place] [address] | | | | + + + + + + | Calcium | 8.2 (L)Comment: Testing | 8.5 - 10.5 | EXTERNAL | | | | performed at [facility], [address] | mg/dL | LAB | | | | [address], | | | | | | [place] [address] | | | | + + + + + + | Protein, | 6.2 (L)Comment: Testing | 6.3 - 8.2 g/dL | EXTERNAL | | | Total | performed at [facility], [address] | | LAB | | | | [address], | | | | | | [place] [address] | | | | + + + + + + | Albumin | 2.7 (L)Comment: Testing | 3.3 - 4.8 g/dL | EXTERNAL | | | | performed at [facility], [address] | | LAB | | | | [address], | | | | | | [place] [address] | | | | + + + + + + | Globulin | 3.5Comment: Testing | 1.3 - 4.9 g/dL | EXTERNAL | | | | performed at [facility], [address] | | LAB | | | | [address], | | | | | | [place] [address] | | | | + + + + + + | A/G Ratio | 0.8 (L)Comment: Testing | 1.0 - 2.4 | EXTERNAL | | | | performed at [facility], [address] | | LAB | | | | [address], | | | | | | [place] [address] | | | | + + + + + + | Bilirubin | 0.5Comment: Testing | 0.1 - 1.5 mg/dL | EXTERNAL | | | Total | performed at [facility], [address] | | LAB | | | | [address], | | | | | | [place] [address] | | | | + + + + + + | ALP, | 98Comment: Testing | 35 - 115 U/L | EXTERNAL | | | External | performed at [facility], [address] | | LAB | | | | [address], | | | | | | [place] [address] | | | | + + + + + + | AST | 35Comment: Testing | 10 - 45 U/L | EXTERNAL | | | | performed at [facility], [address] | | LAB | | | | [address], | | | | | | [place] [address] | | | | + + + + + + | ALT | 15Comment: Testing | 10 - 65 U/L | EXTERNAL | | | | performed at [facility], [address] | | LAB | | | | [address], | | | | | | [place] [address] | | | | + + [...] | | | | | | at [facility], [address] | | | | | | [address], | | | | | | [place] [address] | | | | + + + [...] | | | | | [place] [address] | | | | + + + [...] | | | B-12 | performed at [facility], [address] | pg/mL | LAB | | | | [address], | | | | | | [place] [address] | | | | + + + [...] EXTERNAL | | | | performed at [facility], [address] | K/uL | LAB | | | | [address], | | | | | | [place] [address] | | | | + + + + + + | Red Blood | 2.72 (L)Comment: Testing | 3.70 - 5.10 | EXTERNAL | | | Cells | performed at [facility], [address] | M/uL | LAB | | | Counted | [address], | | | | | | [place] [address] | | | | + + + + + + | Hemoglobin | 9.4 (L)Comment: Testing | 11.3 - 15.5 | EXTERNAL | | | | performed at [facility], [address] | g/dL | LAB | | | | [address], | | | | | | [place] [address] | | | | + + + + + + | Hematocrit, | 29.1 (L)Comment: Testing | 34.0 - 46.0 % | EXTERNAL | | | POC | performed at [facility], [address] | | LAB | | | | [address], | | | | | | [place] [address] | | | | + + + + + + | MCV | 107.3 (H)Comment: | 80.0 - 100.0 fl | EXTERNAL | | | | Testing performed at | | LAB | | | | [facility], [address] [facility] | | | | | | [place] | | | | | | [address] | | | | + + + + + + | MCH | 34.6 (H)Comment: Testing | 27.0 - 34.0 pg | EXTERNAL | | | | performed at [facility], [address] | | LAB | | | | [address], | | | | | | [place] [address] | | | | + + + + + + | MCHC | 32.2Comment: Testing | 32.0 - 35.5 | EXTERNAL | | | | performed at [facility], [address] | g/dL | LAB | | | | [address], | | | | | | [place] [address] | | | | + + + + + + | RDW-CV | 57.3 (H)Comment: Testing | 37 - 53 fl | EXTERNAL | | | | performed at [facility], [address] | | LAB | | | | [address], | | | | | | [place] [address] | | | | + + + + + + | Platelet | 174Comment: Testing | 150 - 400 K/uL | EXTERNAL | | | Count | performed at [facility], [address] | | LAB | | | Plasma | [address], | | | | | | [place] [address] | | | | + + + + + + | MPV | 10.9Comment: Testing | fl | EXTERNAL | | | | performed at [facility], [address] | | LAB | | | | [address], | | | | | | [place] [address] | | | | + + + + + + | Differentia | MANUALComment: Testing | | EXTERNAL | | | l Type | performed at [facility], [address] | | LAB | | | | [address], | | | | | | [place] [address] | | | | + + + + + + | Segmented | 45Comment: Testing | % | EXTERNAL | | | Neutrophils | performed at [facility], [address] | | LAB | | | Manual | [address], | | | | | | [place] [address] | | | | + + + + + + | % Bands | 1Comment: Testing | % | EXTERNAL | | | | performed at [facility], [address] | | LAB | | | | [address], | | | | | | [place] [address] | | | | + + + + + + | Lymphocytes | 34Comment: Testing | % | EXTERNAL | | | Manual | performed at [facility], [address] | | LAB | | | | [address], | | | | | | [place] [address] | | | | + + + + + + | Monocytes | 11Comment: Testing | % | EXTERNAL | | | Manual | performed at [facility], [address] | | LAB | | | | [address], | | | | | | [place] [address] | | | | + + + + + + | Eosinophils | 9Comment: Testing | % | EXTERNAL | | | Manual | performed at [facility], [address] | | LAB | | | | [address], | | | | | | [place] [address] | | | | + + + + + + | Absolute | 3.77Comment: Testing | 1.90 - 7.40 | EXTERNAL | | | Neutrophils | performed at [facility], [address] | K/uL | LAB | | | | [address], | | | | | | [place] [address] | | | | + + + + + + | Bands | 0.08Comment: Testing | 0.00 - 0.20 | EXTERNAL | | | Manual | performed at [facility], [address] | K/uL | LAB | | | | [address], | | | | | | [place] [address] | | | | + + + + + + | Absolute | 2.84Comment: Testing | 1.00 - 3.90 | EXTERNAL | | | Lymphocytes | performed at [facility], [address] | K/uL | LAB | | | | [address], | | | | | | [place] [address] | | | | + + + + + + | Absolute | 0.92 (H)Comment: Testing | 0.00 - 0.80 | EXTERNAL | | | Monocytes | performed at [facility], [address] | K/uL | LAB | | | | [address], | | | | | | [place] [address] | | | | + + + + + + | Absolute | 0.75 (H)Comment: Testing | 0.00 - 0.50 | EXTERNAL | | | Eosinophils | performed at [facility], [address] | K/uL | LAB | | | | [address], | | | | | | [place] [address] | | | | + + + + + + | RBC | NORMAL PLT MORPHComment: | | EXTERNAL | | | Morphology | NORMAL RBC MORPHTesting | | LAB | | | | performed at [facility], [address] | | | | | | [address], | | | | | | [place] [address] | | | | + + + [...] EXTERNAL | | | | performed at [facility], [address] | | LAB | | | | [address], | | | | | | [place] [address] | | | | + + + [...] | | | | | [place] [address] | | | | + + + [...] | | | | | [place] [address] | | | | + + + + + + | K | 3.8Comment: Testing | 3.5 - 4.9 | EXTERNAL | | | | performed at [facility], [address] | mmol/L | LAB | | | | [address], | | | | | | [place] [address] | | | | + + + + + + | Cl | 111 (H)Comment: Testing | 99 - 109 mmol/L | EXTERNAL | | | | performed at [facility], [address] | | LAB | | | | [address], | | | | | | [place] [address] | | | | + + + + + + | CO2 | 25Comment: Testing | 23 - 32 mmol/L | EXTERNAL | | | | performed at [facility], [address] | | LAB | | | | [address], | | | | | | [place] [address] | | | | + + + + + + | Anion Gap | 5Comment: Testing | 5 - 20 mmol/L | EXTERNAL | | | | performed at [facility], [address] | | LAB | | | | [address], | | | | | | [place] [address] | | | | + + + + + + | Glucose, | 112 (H)Comment: Testing | 65 - 99 mg/dL | EXTERNAL | | | Fasting | performed at [facility], [address] | | LAB | | | | [address], | | | | | | [place] [address] | | | | + + + + + + | BUN | 13Comment: Testing | 8 - 25 mg/dL | EXTERNAL | | | | performed at [facility], [address] | | LAB | | | | [address], | | | | | | [place] [address] | | | | + + + + + + | Creatinine | 0.74Comment: Testing | 0.50 - 1.00 | EXTERNAL | | | | performed at [facility], [address] | mg/dL | LAB | | | | [address], | | | | | | [place] [address] | | | | + + + + + + | BUN/Creatin | 18Comment: Testing | | EXTERNAL | | | ine Ratio | performed at [facility], [address] | | LAB | | | | [address], | | | | | | [place] [address] | | | | + + + + + + | Calcium | 8.0 (L)Comment: Testing | 8.5 - 10.5 | EXTERNAL | | | | performed at [facility], [address] | mg/dL | LAB | | | | [address], | | | | | | [place] [address] | | | | + + + + + + | Protein, | 5.9 (L)Comment: Testing | 6.3 - 8.2 g/dL | EXTERNAL | | | Total | performed at [facility], [address] | | LAB | | | | [address], | | | | | | [place] [address] | | | | + + + + + + | Albumin | 2.6 (L)Comment: Testing | 3.3 - 4.8 g/dL | EXTERNAL | | | | performed at [facility], [address] | | LAB | | | | [address], | | | | | | [place] [address] | | | | + + + + + + | Globulin | 3.3Comment: Testing | 1.3 - 4.9 g/dL | EXTERNAL | | | | performed at [facility], [address] | | LAB | | | | [address], | | | | | | [place] [address] | | | | + + + + + + | A/G Ratio | 0.8 (L)Comment: Testing | 1.0 - 2.4 | EXTERNAL | | | | performed at [facility], [address] | | LAB | | | [address], | | | | | | [place] [address] | | | | + + + + + + | Bilirubin | 0.4Comment: Testing | 0.1 - 1.5 mg/dL | EXTERNAL | | | Total | performed at [facility], [address] | | LAB | | | | [address], | | | | | | [place] [address] | | | | + + + + + + | ALP, | 93Comment: Testing | 35 - 115 U/L | EXTERNAL | | | External | performed at [facility], [address] | | LAB | | | | [address], | | | | | | [place] [address] | | | | + + + + + + | AST | 23Comment: Testing | 10 - 45 U/L | EXTERNAL | | | | performed at [facility], [address] | | LAB | | | | [address], | | | | | | [place] [address] | | | | + + + + + + | ALT | 14Comment: Testing | 10 - 65 U/L | EXTERNAL | | | | performed at [facility], [address] | | LAB | | | | [facility], | | | | | | [place] [address] | | | | + + + [...] W | | | | | | [facility], | | | | | | [place] [address] | | | | + + + [...] | | | | | [place] [address] | | | | + + + + + + | Red Blood | 2.78 (L)Comment: Testing | 3.70 - 5.10 | EXTERNAL | | | Cells | performed at [facility], [address] | M/uL | LAB | | | Counted | [address], | | | | | | [place] [address] | | | | + + + + + + | Hemoglobin | 9.7 (L)Comment: Testing | 11.3 - 15.5 | EXTERNAL | | | | performed at [facility], [address] | g/dL | LAB | | | | [address], | | | | | | [place] [address] | | | | + + + + + + | Hematocrit, | 29.9 (L)Comment: Testing | 34.0 - 46.0 % | EXTERNAL | | | POC | performed at [facility], [address] | | LAB | | | | [address], | | | | | | [place] [address] | | | | + + + + + + | MCV | 107.5 (H)Comment: | 80.0 - 100.0 fl | EXTERNAL | | | | Testing performed at | | LAB | | | | [facility], [address] | | | | | | [place] | | | | | | [address] | | | | + + + + + + | MCH | 34.9 (H)Comment: Testing | 27.0 - 34.0 pg | EXTERNAL | | | | performed at [facility], [address] | | LAB | | | | [address], | | | | | | [place] [address] | | | | + + + + + + | MCHC | 32.5Comment: Testing | 32.0 - 35.5 | EXTERNAL | | | | performed at [facility], [address] | g/dL | LAB | | | | [address], | | | | | | [place] [address] | | | | + + + + + + | RDW-CV | 57.3 (H)Comment: Testing | 37 - 53 fl | EXTERNAL | | | | performed at [facility], [address] | | LAB | | | | [address], | | | | | | [place] [address] | | | | + + + + + + | Platelet | 162Comment: Testing | 150 - 400 K/uL | EXTERNAL | | | Count | performed at [facility], [address] | | LAB | | | Plasma | [address], | | | | | | [place] [address] | | | | + + + + + + | MPV | 11.6Comment: Testing | fl | EXTERNAL | | | | performed at [facility], [address] | | LAB | | | | [address], | | | | | | [place] [address] | | | | + + + + + + | Differentia | MANUALComment: Testing | | EXTERNAL | | | l Type | performed at [facility], [address] | | LAB | | | | [address], | | | | | | [place] [address] | | | | + + + + + + | Segmented | 31Comment: Testing | % | EXTERNAL | | | Neutrophils | performed at [facility], [address] | | LAB | | | Manual | [address], | | | | | | [place] [address] | | | | + + + + + + | Lymphocytes | 52Comment: Testing | % | EXTERNAL | | | Manual | performed at [facility], [address] | | LAB | | | | [address], | | | | | | [place] [address] | | | | + + + + + + | Monocytes | 11Comment: Testing | % | EXTERNAL | | | Manual | performed at [facility], [address] | | LAB | | | | [address], | | | | | | [place] [address] | | | | + + + + + + | Eosinophils | 6Comment: Testing | % | EXTERNAL | | | Manual | performed at [facility], [address] | | LAB | | | | [address], | | | | | | [place] [address] | | | | + + + + + + | Absolute | 3.19Comment: Testing | 1.90 - 7.40 | EXTERNAL | | | Neutrophils | performed at [facility], [address] | K/uL | LAB | | | | [address], | | | | | | [place] [address] | | | | + + + + + + | Absolute | 5.36 (H)Comment: Testing | 1.00 - 3.90 | EXTERNAL | | | Lymphocytes | performed at [facility], [address] | K/uL | LAB | | | | [address], | | | | | | [place] [address] | | | | + + + + + + | Absolute | 1.13 (H)Comment: Testing | 0.00 - 0.80 | EXTERNAL | | | Monocytes | performed at [facility], [address] | K/uL | LAB | | | | [address], | | | | | | [place] [address] | | | | + + + + + + | Absolute | 0.62 (H)Comment: Testing | 0.00 - 0.50 | EXTERNAL | | | Eosinophils | performed at [facility], [address] | K/uL | LAB | | | | [address], | | | | | | [place] [address] | | | | + + + + + + | RBC | 2+Comment: MACRONORMAL | | EXTERNAL | | | Morphology | PLT MORPHTesting | | LAB | | | | performed at [facility], [address] | | | | | | [address], | | | | | | [place] [address] | | | | | | | [...] EXTERNAL | | | | performed at [facility], [address] | | LAB | | | | [address], | | | | | | [place] [address] | | | | + + + [...] EXTERNAL | | | | performed at [facility], [address] | | LAB | | | | [address], | | | | | | [place] [address] | | | | + + [...] | | | | | [place] [address] | | | | + + + + + + | K | 4.2Comment: Testing | 3.5 - 4.9 | EXTERNAL | | | | performed at [facility], [address] | mmol/L | LAB | | | | [address], | | | | | | [place] [address] | | | | + + + + + + | Cl | 112 (H)Comment: Testing | 99 - 109 mmol/L | EXTERNAL | | | | performed at [facility], [address] | | LAB | | | | [address], | | | | | | [place] [address] | | | | + + + + + + | CO2 | 27Comment: Testing | 23 - 32 mmol/L | EXTERNAL | | | | performed at [facility], [address] | | LAB | | | | [address], | | | | | | [place] [address] | | | | + + + + + + | Anion Gap | 4 (L)Comment: Testing | 5 - 20 mmol/L | EXTERNAL | | | | performed at [facility], [address] | | LAB | | | | [address], | | | | | | [place] [address] | | | | + + + + + + | Glucose, | 94Comment: Testing | 65 - 99 mg/dL | EXTERNAL | | | Fasting | performed at [facility], [address] | | LAB | | | | [address], | | | | | | [place] [address] | | | | + + + + + + | BUN | 19Comment: Testing | 8 - 25 mg/dL | EXTERNAL | | | | performed at [facility], [address] | | LAB | | | | [address], | | | | | | [place] [id number] | | | | + + + + + + | Creatinine | 1.01 (H)Comment: Testing | 0.50 - 1.00 | EXTERNAL | | | | performed at [facility], [address] | mg/dL | LAB | | | | [address], | | | | | | [place] [address] | | | | + + + + + + | BUN/Creatin | 19Comment: Testing | | EXTERNAL | | | ine Ratio | performed at [facility], [address] | | LAB | | | | [address], | | | | | | [place] [address] | | | | + + + + + + | Calcium | 8.1 (L)Comment: Testing | 8.5 - 10.5 | EXTERNAL | | | | performed at [facility], [address] | mg/dL | LAB | | | | [address], | | | | | | [place] [address] | | | | + + + + + + | Protein, | 5.9 (L)Comment: Testing | 6.3 - 8.2 g/dL | EXTERNAL | | | Total | performed at [facility], [address] | | LAB | | | | [address], | | | | | | [place] [address] | | | | + + + + + + | Albumin | 2.5 (L)Comment: Testing | 3.3 - 4.8 g/dL | EXTERNAL | | | | performed at [facility], [address] | | LAB | | | | [address], | | | | | | [place] [address] | | | | + + + + + + | Globulin | 3.4Comment: Testing | 1.3 - 4.9 g/dL | EXTERNAL | | | | performed at [facility], [address] | | LAB | | | | [address], | | | | | | [place] [address] | | | | + + + + + + | A/G Ratio | 0.7 (L)Comment: Testing | 1.0 - 2.4 | EXTERNAL | | | | performed at [facility], [address] | | LAB | | | | [address], | | | | | | [place] [address] | | | | + + + + + + | Bilirubin | 0.3Comment: Testing | 0.1 - 1.5 mg/dL | EXTERNAL | | | Total | performed at [facility], [address] | | LAB | | | | [address], | | | | | | [place] [address] | | | | + + + + + + | ALP, | 98Comment: Testing | 35 - 115 U/L | EXTERNAL | | | External | performed at [facility], [address] | | LAB | | | | [address], | | | | | | [place] [address] | | | | + + + + + + | AST | 24Comment: Testing | 10 - 45 U/L | EXTERNAL | | | | performed at [facility], [address] | | LAB | | | | [address], | | | | | | [place] [address] | | | | + + + + + + | ALT | 14Comment: Testing | 10 - 65 U/L | EXTERNAL | | | | performed at [facility], [address] | | LAB | | | | [address], | | | | | | [place] [address] | | | | + + + [...] | | | | | | at [facility], [address] | | | | | | [address], | | | | | | [place] [address] | | | | + + + [...] L | LAB | | | | [facility], [address] [facility] | | | | | | [place] | | | | | | [id number] | | | | + + +---- + + + | Red Blood | 2.93 (L)Comment: Testing | 3.7 0 - 5.10 | EXTERNAL | | | Cells | performed at [facility], [address] | M/u L | LAB | | | Counted | [address], | | | | | | [place] [address] | | | | + + +---- + + + | Hemoglobin | 10.2 (L)Comment: Testing | 11. 3 - 15.5 | EXTERNAL | | | | performed at [facility], [address] | g/d L | LAB | | | | [address], | | | | | | [place] [address] | | | | + + +---- + + + | Hematocrit, | 31.6 (L)Comment: Testing | 34. 0 - 46.0 % | EXTERNAL | | | POC | performed at [facility], [address] | | LAB | | | | [address], | | | | | | [place] [address] | | | | + + +---- + + + | MCV | 107.8 (H)Comment: | 80. 0 - 100.0 fl | EXTERNAL | | | | Testing performed at | | LAB | | | | [facility], [address] | | | | | | [place] | | | | | | [address] | | | | + + +---- + + + | MCH | 34.8 (H)Comment: Testing | 27. 0 - 34.0 pg | EXTERNAL | | | | performed at [facility], [address] | | LAB | | | | [address], | | | | | | [place] [address] | | | | + + +---- + + + | MCHC | 32.3Comment: Testing | 32. 0 - 35.5 | EXTERNAL | | | | performed at [facility], [address] | g/d L | LAB | | | | [address], | | | | | | [place] [address] | | | | + + +---- + + + | RDW-CV | 57.3 (H)Comment: Testing | 37 - 53 fl | EXTERNAL | | | | performed at [facility], [address] | | LAB | | | | [address], | | | | | | [place] [address] | | | | + + +---- + + + | Platelet | 146 (L)Comment: Testing | 150 - 400 K/uL | EXTERNAL | | | Count | performed at [facility], [address] | | LAB | | | Plasma | [address], | | | | | | [place] [address] | | | | + + +---- + + + | MPV | 11.2Comment: Testing | fl | EXTERNAL | | | | performed at [facility], [address] | | LAB | | | | [address], | | | | | | [place] [address] | | | | + + +---- + + + | Differentia | MANUALComment: Testing | | EXTERNAL | | | l Type | performed at [facility], [address] | | LAB | | | | [address], | | | | | | [place] [address] | | | | + + +---- + + + | Segmented | 58Comment: Testing | % | EXTERNAL | | | Neutrophils | performed at [facility], [address] | | LAB | | | Manual | [address], | | | | | | [place] [address] | | | | + + +---- + + + | % Bands | 20Comment: Testing | % | EXTERNAL | | | | performed at [facility], [address] | | LAB | | | | [address] [place], | | | | | | [place] [address] | | | | + + +---- + + + | Lymphocytes | 13Comment: Testing | % | EXTERNAL | | | Manual | performed at [facility], [address] | | LAB | | | | [address], | | | | | | [place] [address] | | | | + + +---- + + + | Monocytes | 7Comment: Testing | % | EXTERNAL | | | Manual | performed at [facility], [address] | | LAB | | | | [address], | | | | | | [place] [address] | | | | + + +---- + + + | Eosinophils | 2Comment: Testing | % | EXTERNAL | | | Manual | performed at [facility], [address] | | LAB | | | | [address], | | | | | | [place] [address] | | | | + + +---- + + + | Absolute | 9.23 (H)Comment: Testing | 1.9 0 - 7.40 | EXTERNAL | | | Neutrophils | performed at [facility], [address] | K/u L | LAB | | | | [address] [place], | | | | | | [place] [address] | | | | + + +---- + + + | Bands | 3.18 (H)Comment: Testing | 0.0 0 - 0.20 | EXTERNAL | | | Manual | performed at [facility], [address] | K/u L | LAB | | | | [address], | | | | | | [place] [address] | | | | + + +---- + + + | Absolute | 2.07Comment: Testing | 1.0 0 - 3.90 | EXTERNAL | | | Lymphocytes | performed at [facility], [address] | K/u L | LAB | | | | [address] [place], | | | | | | [place] [address] | | | | + + +---- + + + | Absolute | 1.11 (H)Comment: Testing | 0.0 0 - 0.80 | EXTERNAL | | | Monocytes | performed at [facility], [address] | K/u L | LAB | | | | [address], | | | | | | [place] [address] | | | | + + +---- + + + | Absolute | 0.32Comment: Testing | 0.0 0 - 0.50 | EXTERNAL | | | Eosinophils | performed at [facility], [address] | K/u L | LAB | | | | [address], | | | | | | [place] [address] | | | | + + +---- + + + | RBC | 2+Comment: | | EXTERNAL | | | Morphology | MACRO1+ANISONORMAL PLT | | LAB | | | | MORPHTesting performed | | | | | | at [facility], [address] | | | | | | [address], | | | | | | [place] [address] | | | | | |Testing performed at [facility], [address] [facility] [place] [address] | | | | | | | [...] EXTERNAL | | | | performed at [facility], [address] | | LAB | | | | [address], | | | | | | [place] [address] | | | | + + + [...] EXTERNAL | | | | performed at [facility], [address] | | LAB | | | | [address], | | | | | | [place] [address] | | | | + + + [...] | | | | | [place] [address] | | | | + + + + + + | K | 3.9Comment: Testing | 3.5 - 4.9 | EXTERNAL | | | | performed at [facility], [address] | mmol/L | LAB | | | | [address], | | | | | | [place] [address] | | | | + + + + + + | Cl | 109Comment: Testing | 99 - 109 mmol/L | EXTERNAL | | | | performed at [facility], [address] | | LAB | | | | [address], | | | | | | [place] [address] | | | | + + + + + + | CO2 | 24Comment: Testing | 23 - 32 mmol/L | EXTERNAL | | | | performed at [facility], [address] | | LAB | | | | [address], | | | | | | [place] [address] | | | | + + + + + + | Anion Gap | 8Comment: Testing | 5 - 20 mmol/L | EXTERNAL | | | | performed at [facility], [address] | | LAB | | | | [address], | | | | | | [place] [address] | | | | + + + + + + | Glucose, | 98Comment: Testing | 65 - 99 mg/dL | EXTERNAL | | | Fasting | performed at [facility], [address] | | LAB | | | | [address], | | | | | | [place] [address] | | | | + + + + + + | BUN | 25Comment: Testing | 8 - 25 mg/dL | EXTERNAL | | | | performed at [facility], [address] | | LAB | | | | [address], | | | | | | [place] [address] | | | | + + + + + + | Creatinine | 1.39 (H)Comment: Testing | 0.50 - 1.00 | EXTERNAL | | | | performed at [facility], [address] | mg/dL | LAB | | | | [address], | | | | | | [place] [address] | | | | + + + + + + | BUN/Creatin | 18Comment: Testing | | EXTERNAL | | | ine Ratio | performed at [facility], [address] | | LAB | | | | [address], | | | | | | [place] [address] | | | | + + + + + + | Calcium | 8.2 (L)Comment: Testing | 8.5 - 10.5 | EXTERNAL | | | | performed at [facility], [address] | mg/dL | LAB | | | | [address], | | | | | | [place] [address] | | | | + + + + + + | Protein, | 6.1 (L)Comment: Testing | 6.3 - 8.2 g/dL | EXTERNAL | | | Total | performed at [facility], [address] | | LAB | | | | [address], | | | | | | [place] [address] | | | | + + + + + + | Albumin | 2.4 (L)Comment: Testing | 3.3 - 4.8 g/dL | EXTERNAL | | | | performed at [facility], [address] | | LAB | | | | [address], | | | | | | [place] [address] | | | | + + + + + + | Globulin | 3.7Comment: Testing | 1.3 - 4.9 g/dL | EXTERNAL | | | | performed at [facility], [address] | | LAB | | | | [address], | | | | | | [place] [address] | | | | + + + + + + | A/G Ratio | 0.6 (L)Comment: Testing | 1.0 - 2.4 | EXTERNAL | | | | performed at [facility], [address] | | LAB | | | | [address], | | | | | | [place] [address] | | | | + + + + + + | Bilirubin | 0.4Comment: Testing | 0.1 - 1.5 mg/dL | EXTERNAL | | | Total | performed at [facility], [address] | | LAB | | | | [address], | | | | | | [place] [address] | | | | + + + + + + | ALP, | 111Comment: Testing | 35 - 115 U/L | EXTERNAL | | | External | performed at [facility], [address] | | LAB | | | | [address], | | | | | | [place] [address] | | | | + + + + + + | AST | 29Comment: Testing | 10 - 45 U/L | EXTERNAL | | | | performed at [facility], [address] | | LAB | | | | [address], | | | | | | [place] [address] | | | | + + + + + + | ALT | 14Comment: Testing | 10 - 65 U/L | EXTERNAL | | | | performed at [facility], [address] | | LAB | | | | [address], | | | | | | [place] [address] | | | | + + + [...] | | | | | [place] [address] | | | | + + + [...] K/uL | LAB | | | | [facility], [address] [facility] | | | | | | [place] | | | | | | [address] | | | | + + + + + + | Red Blood | 3.12 (L)Comment: Testing | 3.70 - 5.10 | EXTERNAL | | | Cells | performed at [facility], [address] | M/uL | LAB | | | Counted | [address], | | | | | | [place] [address] | | | | + + + + + + | Hemoglobin | 10.8 (L)Comment: Testing | 11.3 - 15.5 | EXTERNAL | | | | performed at [facility], [address] | g/dL | LAB | | | | [address] [place], | | | | | | [place] [address] | | | | + + + + + + | Hematocrit, | 33.7 (L)Comment: Testing | 34.0 - 46.0 % | EXTERNAL | | | POC | performed at [facility], [address] | | LAB | | | | [address], | | | | | | [place] [address] | | | | + + + + + + | MCV | 108.0 (H)Comment: | 80.0 - 100.0 fl | EXTERNAL | | | | Testing performed at | | LAB | | | | [facility], [address] [facility] | | | | | | [place] | | | | | | [address] | | | | + + + + + + | MCH | 34.7 (H)Comment: Testing | 27.0 - 34.0 pg | EXTERNAL | | | | performed at [facility], [address] | | LAB | | | | [address], | | | | | | [place] [address] | | | | + + + + + + | MCHC | 32.1Comment: Testing | 32.0 - 35.5 | EXTERNAL | | | | performed at [facility], [address] | g/dL | LAB | | | | [address] [place], | | | | | | [place] [address] | | | | + + + + + + | RDW-CV | 55.6 (H)Comment: Testing | 37 - 53 fl | EXTERNAL | | | | performed at [facility], [address] | | LAB | | | | [address], | | | | | | [place] [address] | | | | + + + + + + | Platelet | 153Comment: Testing | 150 - 400 K/uL | EXTERNAL | | | Count | performed at [facility], [address] | | LAB | | | Plasma | [address], | | | | | | [place] [address] | | | | + + + + + + | MPV | 11.2Comment: Testing | fl | EXTERNAL | | | | performed at [facility], [address] | | LAB | | | | [address], | | | | | | [place] [address] | | | | + + + + + + | Differentia | MANUALComment: Testing | | EXTERNAL | | | l Type | performed at [facility], [address] | | LAB | | | | [address], | | | | | | [place], [place] [address] | | | | + + + + + + | Segmented | 64Comment: Testing | % | EXTERNAL | | | Neutrophils | performed at [facility], [address] | | LAB | | | Manual | [address], | | | | | | [place] [address] | | | | + + + + + + | % Bands | 15Comment: Testing | % | EXTERNAL | | | | performed at [facility], [address] | | LAB | | | | [address], | | | | | | [place] [address] | | | | + + + + + + | % | 2Comment: Testing | % | EXTERNAL | | | Metamyelocy | performed at [facility], [address] | | LAB | | | [address] | [address], | | | | | | [place] [address] | | | | + + + + + + | Lymphocytes | 12Comment: Testing | % | EXTERNAL | | | Manual | performed at [facility], [address] | | LAB | | | | [address], | | | | | | [place] [address] | | | | + + + + + + | Monocytes | 6Comment: Testing | % | EXTERNAL | | | Manual | performed at [facility], [address] | | LAB | | | | [address], | | | | | | [place] [address] | | | | + + + + + + | Eosinophils | 1Comment: Testing | % | EXTERNAL | | | Manual | performed at [facility], [address] | | LAB | | | | [address], | | | | | | [place] [address] | | | | + + + + + + | Absolute | 11.48 (H)Comment: | 1.90 - 7.40 | EXTERNAL | | | Neutrophils | Testing performed at | K/uL | LAB | | | | [facility], [address] [facility] | | | | | | [place] | | | | | | [address] | | | | + + + + + + | Bands | 2.69 (H)Comment: Testing | 0.00 - 0.20 | EXTERNAL | | | Manual | performed at [facility], [address] | K/uL | LAB | | | | [address] [place], | | | | | | [place] [address] | | | | + + + + + + | Absolute | 0.36 (H)Comment: Testing | K/uL | EXTERNAL | | | Metamyelocy | performed at [facility], [address] | | LAB | | | [address] | [address], | | | | | | [place] [address] | | | | + + + + + + | Absolute | 2.15Comment: Testing | 1.00 - 3.90 | EXTERNAL | | | Lymphocytes | performed at [facility], [address] | K/uL | LAB | | | | [address], | | | | | | [place] [address] | | | | + + + + + + | Absolute | 1.08 (H)Comment: Testing | 0.00 - 0.80 | EXTERNAL | | | Monocytes | performed at [facility], [address] | K/uL | LAB | | | | [address], | | | | | | [place] [address] | | | | + + + + + + | Absolute | 0.18Comment: Testing | 0.00 - 0.50 | EXTERNAL | | | Eosinophils | performed at [facility], [address] | K/uL | LAB | | | | [address], | | | | | | [place] [address] | | | | + + + + + + | RBC | 2+Comment: MACRONORMAL | | EXTERNAL | | | Morphology | PLT MORPHTesting | | LAB | | | | performed at [facility], [address] | | | | | | [address], | | | | | | [place] [address] | | | | | | | [...] EXTERNAL | | | | performed at [facility];[address] | mmol/L | LAB | | | | [address];[place] | | | | | | [address] | | | | + + + + + + | K | 3.8Comment: Testing | 3.5 - 4.9 | EXTERNAL | | | | performed at [facility];[address] | mmol/L | LAB | | | | [address];[place] | | | | | | [address] | | | | + + + + + + | Cl | 107Comment: Testing | 99 - 109 mmol/L | EXTERNAL | | | | performed at [facility];[address] | | LAB | | | | [address];[place] | | | | | | [address] | | | | + + + + + + | CO2 | 26Comment: Testing | 23 - 32 mmol/L | EXTERNAL | | | | performed at [facility];[address] | | LAB | | | | [address];[place] | | | | | | [address] | | | | + + + + + + | Anion Gap | 12Comment: Testing | 5 - 20 mmol/L | EXTERNAL | | | | performed at [facility];[address] | | LAB | | | | [address];[place] | | | | | | [address] | | | | + + + + + + | Glucose, | 127 (H)Comment: Testing | 65 - 99 mg/dL | EXTERNAL | | | Fasting | performed at [facility];[address] | | LAB | | | | [address];[place] | | | | | | [address] | | | | + + + + + + | BUN | 28 (H)Comment: Testing | 8 - 25 mg/dL | EXTERNAL | | | | performed at [facility];[address] | | LAB | | | | [address];[place] | | | | | | [address] | | | | + + + + + + | Creatinine | 1.8 (H)Comment: Testing | 0.50 - 1.00 | EXTERNAL | | | | performed at [facility];[address] | mg/dL | LAB | | | | [address];[place] | | | | | | [address] | | | | + + + + + + | BUN/Creatin | 16Comment: Testing | | EXTERNAL | | | ine Ratio | performed at [facility];[address] | | LAB | | | | [address];[place] | | | | | | [address] | | | | + + + + + + | Calcium | 7.6 (L)Comment: Testing | 8.5 - 10.5 | EXTERNAL | | | | performed at [facility];[address] | mg/dL | LAB | | | | [address];[place], [place] | | | | | | [address] | | | | + + + [...] | | | | | | at [facility];[address] [place] [address] | | | | | | Blvd;[place] [address] | | | | + + + [...] | | | | | | at [facility];[address] [place] [address] | | | | | | Blvd;[place] [address] | | | | + + + [...] L | LAB | | | | [facility], [address] | | | | | | [place] | | | | | | [address] | | | | + + +---- + + + | Red Blood | 3.07 (L)Comment: Testing | 3.7 0 - 5.10 | EXTERNAL | | | Cells | performed at [facility], [address] | M/u L | LAB | | | Counted | [address] [place], | | | | | | [place] [address] | | | | + + +---- + + + | Hemoglobin | 10.8 (L)Comment: Testing | 11. 3 - 15.5 | EXTERNAL | | | | performed at [facility], [address] | g/d L | LAB | | | | [address], | | | | | | [place] [address] | | | | + + +---- + + + | Hematocrit, | 32.7 (L)Comment: Testing | 34. 0 - 46.0 % | EXTERNAL | | | POC | performed at [facility], [address] | | LAB | | | | [address], | | | | | | [place] [address] | | | | + + +---- + + + | MCV | 106.4 (H)Comment: | 80. 0 - 100.0 fl | EXTERNAL | | | | Testing performed at | | LAB | | | | [facility], [address] | | | | | | [place] | | | | | | [address] | | | | + + +---- + + + | MCH | 35.1 (H)Comment: Testing | 27. 0 - 34.0 pg | EXTERNAL | | | | performed at [facility], [address] | | LAB | | | | [address], | | | | | | [place] [address] | | | | + + +---- + + + | MCHC | 33.0Comment: Testing | 32. 0 - 35.5 | EXTERNAL | | | | performed at [facility], [address] | g/d L | LAB | | | | [address], | | | | | | [place] [address] | | | | + + +---- + + + | RDW-CV | 56.0 (H)Comment: Testing | 37 - 53 fl | EXTERNAL | | | | performed at [facility], [address] | | LAB | | | | [address], | | | | | | [place] [address] | | | | + + +---- + + + | Platelet | 151Comment: Testing | 150 - 400 K/uL | EXTERNAL | | | Count | performed at [facility], [address] | | LAB | | | Plasma | [address], | | | | | | [place] [address] | | | | + + +---- + + + | MPV | 11.7Comment: Testing | fl | EXTERNAL | | | | performed at [facility], [address] | | LAB | | | | [address], | | | | | | [place] [address] | | | | + + +---- + + + | Differentia | MANUALComment: Testing | | EXTERNAL | | | l Type | performed at [facility], [address] | | LAB | | | | [address], | | | | | | [place] [address] | | | | + + +---- + + + | Segmented | 57Comment: Testing | % | EXTERNAL | | | Neutrophils | performed at [facility], [address] | | LAB | | | Manual | [address], | | | | | | [place] [address] | | | | + + +---- + + + | % Bands | 26Comment: Testing | % | EXTERNAL | | | | performed at [facility], [address] | | LAB | | | | [address], | | | | | | [place] [address] | | | | + + +---- + + + | % | 4Comment: Testing | % | EXTERNAL | | | Metamyelocy | performed at [facility], [address] | | LAB | | | [address] | [address], | | | | | | [place] [address] | | | | + + +---- + + + | Lymphocytes | 9Comment: Testing | % | EXTERNAL | | | Manual | performed at [facility], [address] | | LAB | | | | [address], | | | | | | [place] [address] | | | | + + +---- + + + | Monocytes | 4Comment: Testing | % | EXTERNAL | | | Manual | performed at [facility], [address] | | LAB | | | | [facility], | | | | | | [place] [address] | | | | + + +---- + + + | Absolute | 10.53 (H)Comment: | 1.9 0 - 7.40 | EXTERNAL | | | Neutrophils | Testing performed at | K/u L | LAB | | | | [facility], [address] | | | | | | [place] | | | | | | [address] | | | | + + +---- + + + | Bands | 4.80 (H)Comment: Testing | 0.0 0 - 0.20 | EXTERNAL | | | Manual | performed at [facility], [address] | K/u L | LAB | | | | [address], | | | | | | [place] [address] | | | | + + +---- + + + | Absolute | 0.74 (H)Comment: Testing | K/u L | EXTERNAL | | | Metamyelocy | performed at [facility], [address] | | LAB | | | [address] | [address], | | | | | | [place] [address] | | | | + + +---- + + + | Absolute | 1.66Comment: Testing | 1.0 0 - 3.90 | EXTERNAL | | | Lymphocytes | performed at [facility], [address] | K/u L | LAB | | | | [address], | | | | | | [place] [address] | | | | + + +---- + + + | Absolute | 0.74Comment: Testing | 0.0 0 - 0.80 | EXTERNAL | | | Monocytes | performed at [facility], [address] | K/u L | LAB | | | | [address], | | | | | | [place] [address] | | | | + + +---- + + + | RBC | 2+Comment: | | EXTERNAL | | | Morphology | MACRO1+ANISONORMAL PLT | | LAB | | | | MORPHTesting performed | | | | | | at [facility], [address] | | | | | | [address], | | | | | | [place] [address] | | | | | |Testing performed at [facility], [address] [place] [address] | | | | | | | [...] EXTERNAL | | | | performed at [facility];[address] | | LAB | | | | [address];[place], [place] | | | | | | [address] | | | | + + + [...] | | | | | performed at [facility];[address] | | | | | | [address];[place], [place] | | | | | | [address] | | | | + + + [...] EXTERNAL | | | | performed at [facility];[address] | mmol/L | LAB | | | | [address];[place] | | | | | | [address] | | | | + + + [...] EXTERNAL | | | | performed at [facility];[address] | mmol/L | LAB | | | | [address];[place] | | | | | | [address] | | | | + + + + + + | K | 4.4Comment: SPECIMEN | 3.5 - 4.9 | EXTERNAL | | | | SLIGHTLY | mmol/L | LAB | | | | HEMOLYZEDTesting | | | | | | performed at [facility];[address] | | | | | | [address];[place] | | | | | | [address] | | | | + + + + + + | Cl | 106Comment: Testing | 99 - 109 mmol/L | EXTERNAL | | | | performed at [facility];[address] | | LAB | | | | [address];[place] | | | | | | [address] | | | | + + + + + + | CO2 | 24Comment: Testing | 23 - 32 mmol/L | EXTERNAL | | | | performed at [facility];[address] | | LAB | | | | [address];[place] | | | | | | [address] | | | | + + + + + + | Anion Gap | 12Comment: Testing | 5 - 20 mmol/L | EXTERNAL | | | | performed at [facility];[address] | | LAB | | | | [address];[place] | | | | | | [address] | | | | + + + + + + | Glucose, | 103 (H)Comment: Testing | 65 - 99 mg/dL | EXTERNAL | | | Fasting | performed at [facility];[address] | | LAB | | | | [address];[place] | | | | | | [address] | | | | + + + + + + | BUN | 22Comment: Testing | 8 - 25 mg/dL | EXTERNAL | | | | performed at [facility];[address] | | LAB | | | | [address];[place] | | | | | | [address] | | | | + + + + + + | Creatinine | 1.9 (H)Comment: Testing | 0.50 - 1.00 | EXTERNAL | | | | performed at [facility];[address] | mg/dL | LAB | | | | [address];[place] | | | | | | [address] | | | | + + + + + + | BUN/Creatin | 12Comment: Testing | | EXTERNAL | | | ine Ratio | performed at [facility];[address] | | LAB | | | | [address];[place] | | | | | | [address] | | | | + + + + + + | Calcium | 7.4 (L)Comment: Testing | 8.5 - 10.5 | EXTERNAL | | | | performed at [facility];888 | mg/dL | LAB | | | | [address];[place] | | | | | | [address] | | | | + + + + + + | Protein, | 6.5Comment: Testing | 6.3 - 8.2 g/dL | EXTERNAL | | | Total | performed at [facility];[address] | | LAB | | | | [address];[place] | | | | | | [address] | | | | + + + + + + | Albumin | 2.2 (L)Comment: Testing | 3.3 - 4.8 g/dL | EXTERNAL | | | | performed at [facility];[address] | | LAB | | | | [address];[place] | | | | | | [address] | | | | + + + + + + | Globulin | 4.4Comment: Testing | 1.3 - 4.9 g/dL | EXTERNAL | | | | performed at [facility];[address] | | LAB | | | | [address];[place] | | | | | | [address] | | | | + + + + + + | A/G Ratio | 0.5 (L)Comment: Testing | 1.0 - 2.4 | EXTERNAL | | | | performed at [facility];[address] | | LAB | | | | [address];[place] | | | | | | [address] | | | | + + + + + + | Bilirubin | 0.5Comment: Testing | 0.1 - 1.5 mg/dL | EXTERNAL | | | Total | performed at [facility];[address] | | LAB | | | | [address];[place] | | | | | | [address] | | | | + + + + + + | ALP, | 148 (H)Comment: Testing | 35 - 115 U/L | EXTERNAL | | | External | performed at [facility];[address] | | LAB | | | | [address];[place] | | | | | | [address] | | | | + + + + + + | AST | 41Comment: SPECIMEN | 10 - 45 U/L | EXTERNAL | | | | SLIGHTLY | | LAB | | | | HEMOLYZEDTesting | | | | | | performed at [facility];[address] | | | | | | [address];[place] | | | | | | [address] | | | | + + + + + + | ALT | 23Comment: Testing | 10 - 65 U/L | EXTERNAL | | | | performed at [facility];[address] | | LAB | | | | [facility];[place], [place] | | | | | | [address] | | | | + + + [...] | | | | | | at [facility];[address] [facility] | | | | | | [address];[place] [address] | | | | + + + [...] WORKUP | | | Testing performed at [facility], [address], [place] | | | [address] | | + + + + +---------+ [...] | | | | | [place] [address] | | | | + + + + + + | Clarity | CLOUDYComment: Testing | | EXTERNAL | | | | performed at [facility], [address] | | LAB | | | | [address], | | | | | | [place] [address] | | | | + + + + + + | Specific | 1.015Comment: Testing | 1.002 - 1.030 | EXTERNAL | | | Natalia, | performed at [facility], [address] | | LAB | | | Urine | [address], | | | | | | [place] [address] | | | | + + + + + + | Leukocyte | SMALL (A)Comment: | | EXTERNAL | | | Esterase, | Testing performed at | | LAB | | | Urine | [facility], [address] | | | | | | [place] | | | | | | [address] | | | | + + + + + + | Nitrite, | NEGATIVEComment: Testing | | EXTERNAL | | | Urine | performed at [facility], [address] | | LAB | | | | [address], | | | | | | [place] [address] | | | | + + + + + + | Urobilinoge | 0.2Comment: Testing | mg/dL | EXTERNAL | | | n, Urine | performed at [facility], [address] | | LAB | | | | [address], | | | | | | [place] [address] | | | | + + + + + + | Protein, | 100 (A)Comment: Testing | mg/dL | EXTERNAL | | | Urine | performed at [facility], [address] | | LAB | | | | [address], | | | | | | [place] [address] | | | | + + + [...] | | | | [facility] [address] [facility] | | | | | | [place] | | | | | | [address] | | | | + + + + + + | Ketones | NEGATIVEComment: Testing | mg/dL | EXTERNAL | | | | performed at [facility], [address] | | LAB | | | | [address], | | | | | | [place] [address] | | | | + + + + + + | Bilirubin, | NEGATIVEComment: Testing | | EXTERNAL | | | Urine | performed at [facility], [address] | | LAB | | | | [address], | | | | | | [place] [address] | | | | + + + + + + | Glucose, | NEGATIVEComment: Testing | mg/dL | EXTERNAL | | | Urine | performed at [facility], [address] | | LAB | | | | [address], | | | | | | [place] [address] | | | | + + + [...] | | | | | [place] [address] | | | | + + + + + + | RBC, UA | 1-5Comment: Testing | 0 - 5 /hpf | EXTERNAL | | | | performed at [facility], [address] | | LAB | | | | [address], | | | | | | [place] [address] | | | | + + + + + + | Epithelial | 0-2Comment: Testing | /lpf | EXTERNAL | | | Cells | performed at [facility], [address] | | LAB | | | | [address] [place], | | | | | | [place] [address] | | | | + + + + + + | Bacteria, | TRACE (A)Comment: | | EXTERNAL | | | UA | Testing performed at | | LAB | | | | [facility], [address] | | | | | | [place] | | | | | | [address] | | | | + + + + + + | Urinalysis | CULTURE TO | | EXTERNAL | | | Comments | FOLLOWComment: Testing | | LAB | | | | performed at [facility], [address] | | | | | | [address], | | | | | | [place] [address] | | | | + + + [...] EXTERNAL | | | | performed at [facility];[address] | mg/dL | LAB | | | | [address];[place], [place] | | | | | | [address] | | | | + + + [...] LAB | | C.diffAbnormal Testing performed at [facility];[address] [place] [address];[place], [place] | | | [phone] NAP1 BI 027 NAP1 BI | | | PRESUMPTIVE NEGATIVE Detection of 027 NAP1 BI strains of C. difficile | | | is presumptive and for epidemiological purposes and not intended to | | | guide or monitor treatment for C. difficile infections. Testing | | | performed at [facility];[address] [place] [address];[place] [address] | | + + + + +---------+ [...] EXTERNAL | | | | performed at [facility];888 | mmol/L | LAB | | | | [address];[place], [place] | | | | | | [address] | | | | + + + [...] | | | | | | at [facility];[address] [place] [address] | | | | | | [facility];[place] [address] | | | | + + + [...] EXTERNAL | | | | performed at [facility];[address] | | LAB | | | | [address] [facility];[place], [place] | | | | | | [address] | | | | + + + [...] | | | | | performed at [facility];[address] | | | | | | [address];[place], [place] | | | | | | [address] | | | | + + + [...] K/uL | LAB | | | | [facility];[address];[place] [address] | | | | + + + + + + | Red Blood | 3.66 (L)Comment: Testing | 3.70 - 5.10 | EXTERNAL | | | Cells | performed at [facility];[address] | M/uL | LAB | | | Counted | [address];[place] | | | | | | [address] | | | | + + + + + + | Hemoglobin | 12.6Comment: Testing | 11.3 - 15.5 | EXTERNAL | | | | performed at [facility];[address] | g/dL | LAB | | | | [address];[place] | | | | | | [address] | | | | + + + + + + | Hematocrit, | 38.9Comment: Testing | 34.0 - 46.0 % | EXTERNAL | | | POC | performed at [facility];[address] | | LAB | | | | [address];[place] | | | | | | [address] | | | | + + + + + + | MCV | 106.3 (H)Comment: | 80.0 - 100.0 fl | EXTERNAL | | | | Testing performed at | | LAB | | | | [facility];[address];[place] [address] | | | | + + + + + + | MCH | 34.3 (H)Comment: Testing | 27.0 - 34.0 pg | EXTERNAL | | | | performed at [facility];[address] | | LAB | | | | [address];[place] | | | | | | [address] | | | | + + + + + + | MCHC | 32.3Comment: Testing | 32.0 - 35.5 | EXTERNAL | | | | performed at [facility];[address] | g/dL | LAB | | | | [address];[place] | | | | | | [address] | | | | + + + + + + | RDW-CV | 54.7 (H)Comment: Testing | 37 - 53 fl | EXTERNAL | | | | performed at [facility];[address] | | LAB | | | | [address];[place] | | | | | | [address] | | | | + + + + + + | Platelet | 167Comment: Testing | 150 - 400 K/uL | EXTERNAL | | | Count | performed at [facility];[address] | | LAB | | | Plasma | [address];[place] | | | | | | [address] | | | | + + + + + + | MPV | 10.6Comment: Testing | fl | EXTERNAL | | | | performed at [facility];[address] | | LAB | | | | [address];[place] | | | | | | [address] | | | | + + + + + + | Differentia | MANUALComment: Testing | | EXTERNAL | | | l Type | performed at [facility];[address] | | LAB | | | | [address];[place] | | | | | | [address] | | | | + + + + + + | Segmented | 54Comment: Testing | % | EXTERNAL | | | Neutrophils | performed at [facility];[address] | | LAB | | | Manual | [address];[place] | | | | | | [address] | | | | + + + + + + | % Bands | 18Comment: Testing | % | EXTERNAL | | | | performed at [facility];[address] | | LAB | | | | [address];[place] | | | | | | [address] | | | | + + + + + + | Lymphocytes | 16Comment: Testing | % | EXTERNAL | | | Manual | performed at [facility];[address] | | LAB | | | | [address];[place] | | | | | | [address] | | | | + + + + + + | Monocytes | 12Comment: Testing | % | EXTERNAL | | | Manual | performed at [facility];[address] | | LAB | | | | [address];[place] | | | | | | [address] | | | | + + + + + + | Absolute | 10.69 (H)Comment: | 1.90 - 7.40 | EXTERNAL | | | Neutrophils | Testing performed at | K/uL | LAB | | | | [facility];[address];[place] [address] | | | | + + + + + + | Bands | 3.56 (H)Comment: Testing | 0.00 - 0.20 | EXTERNAL | | | Manual | performed at [facility];[address] | K/uL | LAB | | | | [address];[place] | | | | | | [address] | | | | + + + + + + | Absolute | 3.16Comment: Testing | 1.00 - 3.90 | EXTERNAL | | | Lymphocytes | performed at [facility];[address] | K/uL | LAB | | | | [address];[place] | | | | | | [address] | | | | + + + + + + | Absolute | 2.37 (H)Comment: Testing | 0.00 - 0.80 | EXTERNAL | | | Monocytes | performed at [facility];[address] | K/uL | LAB | | | | [address];[place] | | | | | | [address] | | | | + + + + + + | Platelet | ADEQUATEComment: Testing | | EXTERNAL | | | Estimate | performed at [facility];[address] | | LAB | | | | [address];[place] | | | | | | [address] | | | | + + + + + + | RBC | NORMAL PLT MORPHComment: | | EXTERNAL | | | Morphology | 1+ANISOTesting | | LAB | | | | performed at [facility];[address] | | | | | | [address];[place], [place] | | | | | | [address] | | | | | | | [...] EXTERNAL | | | | performed at [facility];[address] | uIU/mL | LAB | | | | [address];[place], [place] | | | | | | [address] | | | | + + + [...] EXTERNAL | | | | performed at [facility];[address] | | LAB | | | | [address];[place] | | | | | | [address] | | | | + + + [...] | | LAB | | | | [facility];[address];[place] [address] | | | | + + + [...] EXTERNAL | | | | performed at [facility];[address] | | LAB | | | | [address];[place], [place] | | | | | | [address] | | | | + + + [...] EXTERNAL | | | | performed at [facility];[address] | | LAB | | | | [address];[place] | | | | | | [address] | | | | + + + [...] EXTERNAL | | | | performed at [facility];888 | mmol/L | LAB | | | | [address];[place] | | | | | | [address] | | | | + + + + + + | K | 3.4 (L)Comment: Testing | 3.5 - 4.9 | EXTERNAL | | | | performed at [facility];888 | mmol/L | LAB | | | | [address];[place] | | | | | | [address] | | | | + + + + + + | Cl | 101Comment: Testing | 99 - 109 mmol/L | EXTERNAL | | | | performed at [facility];[address] | | LAB | | | | [address];[place] | | | | | | [address] | | | | + + + + + + | CO2 | 27Comment: Testing | 23 - 32 mmol/L | EXTERNAL | | | | performed at [facility];[address] | | LAB | | | | [address];[place] | | | | | | [address] | | | | + + + + + + | Anion Gap | 12Comment: Testing | 5 - 20 mmol/L | EXTERNAL | | | | performed at [facility];[address] | | LAB | | | | [address];[place] | | | | | | [address] | | | | + + + + + + | Glucose, | 106 (H)Comment: Testing | 65 - 99 mg/dL | EXTERNAL | | | Fasting | performed at [facility];[address] | | LAB | | | | [address];[place] | | | | | | [address] | | | | + + + + + + | BUN | 18Comment: Testing | 8 - 25 mg/dL | EXTERNAL | | | | performed at [facility];[address] | | LAB | | | | [address];[place] | | | | | | [address] | | | | + + + + + + | Creatinine | 1.3 (H)Comment: Testing | 0.50 - 1.00 | EXTERNAL | | | | performed at [facility];888 | mg/dL | LAB | | | | [address];[place] | | | | | | [address] | | | | + + + + + + | BUN/Creatin | 14Comment: Testing | | EXTERNAL | | | ine Ratio | performed at [facility];[address] | | LAB | | | | [address];[place] | | | | | | [address] | | | | + + + + + + | Calcium | 7.3 (L)Comment: Testing | 8.5 - 10.5 | EXTERNAL | | | | performed at [facility];888 | mg/dL | LAB | | | | [address];[place] | | | | | | [address] | | | | + + + + + + | Protein, | 7.9Comment: Testing | 6.3 - 8.2 g/dL | EXTERNAL | | | Total | performed at [facility];[address] | | LAB | | | | [address];[place] | | | | | | [address] | | | | + + + + + + | Albumin | 2.5 (L)Comment: Testing | 3.3 - 4.8 g/dL | EXTERNAL | | | | performed at [facility];[address] | | LAB | | | | [address];[place] | | | | | | [address] | | | | + + + + + + | Globulin | 5.4 (H)Comment: Testing | 1.3 - 4.9 g/dL | EXTERNAL | | | | performed at [facility];[address] | | LAB | | | | [address];[place] | | | | | | [address] | | | | + + + + + + | A/G Ratio | 0.5 (L)Comment: Testing | 1.0 - 2.4 | EXTERNAL | | | | performed at [facility];[address] | | LAB | | | | [address];[place] | | | | | | [address] | | | | + + + + + + | Bilirubin | 0.6Comment: Testing | 0.1 - 1.5 mg/dL | EXTERNAL | | | Total | performed at [facility];[address] | | LAB | | | | [address];[place] | | | | | | [address] | | | | + + + + + + | ALP, | 188 (H)Comment: Testing | 35 - 115 U/L | EXTERNAL | | | External | performed at [facility];[address] | | LAB | | | | [address];[place] | | | | | | [address] | | | | + + + + + + | AST | 51 (H)Comment: Testing | 10 - 45 U/L | EXTERNAL | | | | performed at [facility];[address] | | LAB | | | | [address];[place] | | | | | | [address] | | | | + + + + + + | ALT | 30Comment: Testing | 10 - 65 U/L | EXTERNAL | | | | performed at [facility];[address] | | LAB | | | | [address];[place] | | | | | | [address] | | | | + + + [...] | | | | | | at [facility];[address] [place] [address] | | | | | | [facility];[place] [address] | | | | + + + [...] Blake - 01/05/2019 4:32 AM ALTAGRACIA COLEEnid [id number] yearsXR | | CHEST 1 VIEW01/28/2015 2:40 [...]
--- OUTSIDE RECORDS SUMMARY | ~2019-09-28 | XMS | Encounter Summary ---
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 In some [facility], a lung transplant is an option. Your healthcare team may include: A primary care provider,such as your family doctor. A miller head,a specialist in lung problems. A pulmonary nurse specialistwho helps you understand and carry out your treatment. A pulmonary rehabilitation specialistwho helps you gain strength through exercise. A social workerwho helps with your daily needs, family life, and stress. [phone] [employer]. [address] [place] [address]. All righ ts reserved. This information is [...] | | | | | [place] | | | | | | [phone] | | | | | | | [...]
--- OUTSIDE RECORDS SUMMARY | 2019-09-28 20:02 | XMS ---
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 - Has Care Guidelines - PDMP CARE PROVIDERS Name Unknown Intermediate Facility Current PHONE: [phone] KI DE JESUS Internal Medicine 02/06/2018-Current PHONE: [phone] Cristhian Rinaldi Candle Maker/Rescue Instructor 01/17/2019-Current PHONE: [phone] Anu has no Care Guidelines for this patient. Care History Medical/Surgical 06/13/2019 [facility] Patient being seen for multiple falls.\T\nbsp; Patient has follow up appointment with Dr. De Jesus 06/14/2019 . 06/04/2019 [facility] Patient was admitted 06/03/2019.\T\nbsp; Referral made for clinical specialty rep on 11/2019.\T\nbsp;Has a scheduled appointment on 06/05/[address] De Jesus. 05/30/2019 [facility] Patient has follow up appointment on 06/05/[address] Jo Rowell VISIT COUNT (12 MO.) 10 [facility] TOTAL 10 NOTE: Visits indicate total known visits. ED/UCC VISIT TRACKING (12 MO.) [facility] COMPLAINT: - WEAKNESS 06/13/2019 09:14 [facility] [place] TYPE: Emergency COMPLAINT: - FALL DIAGNOSES: - Hypothyroidism, unspecified - Contusion of right knee, initial encounter - retirement (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 - Unspecified atrial fibrillation - Pain in right knee - Allergy status to narcotic agent status - Other nursing home (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 - Unspecified fall, initial encounter 06/12/2019 11:06 [facility] [place] TYPE: Emergency COMPLAINT: - FAAKNESS DIAGNOSES: - Weakness - Chronic kidney disease, unspecified - Allergy status to narcotic agent status - 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 - Hypothyroidism, unspecified - retirement (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 - Unspecified atrial fibrillation 06/03/2019 17:00 [facility] [place] TYPE: Emergency COMPLAINT: - WEAKNESS 05/29/2019 15:14 [facility] [place] TYPE: Emergency COMPLAINT: - HIGH HEARTRATE DIAGNOSES: - Chronic kidney disease, unspecified - 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 - Allergy status to narcotic agent status - retirement (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 - Hypothyroidism, unspecified - Unspecified atrial fibrillation 05/19/2019 06:17 [facility] [place] TYPE: Emergency COMPLAINT: - SOB DIAGNOSES: - Unspecified atrial fibrillation - Chronic kidney disease, unspecified - retirement (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 - Shortness of breath - Heart failure, unspecified - Allergy status to narcotic agent status - Hypothyroidism, unspecified - Other nursing home (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 05/09/2019 11:17 [facility] [place] TYPE: Emergency COMPLAINT: - AFIB 05/06/2019 15:13 [facility] [place] TYPE: Emergency COMPLAINT: - HEART PALPITATIONS DIAGNOSES: - Hypothyroidism, unspecified - Allergy status to narcotic agent status - 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 - Dyspnea, unspecified [...] nicotine dependence - Unspecified atrial fibrillation - retirement (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 - Chronic kidney disease, unspecified - Other nursing home (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 - Hypothyroidism, unspecified - Overexertion from prolonged static or awkward postures, initi INPATIENT VISIT TRACKING (12 MO.) 06/03/2019 19:31 [facility] [place] TYPE: Medical Surgical COMPLAINT: - UTI DIAGNOSES: - Do not resuscitate - retirement (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 - Essential (primary) hypertension - Somnolence - Somnolence - Unspecified place in hospital as the place of occurrence of t - Essential (primary) hypertension - Unspecified place in hospital as the place of occurrence of t - Other persistent atrial fibrillation - Hyperlipidemia, unspecified - Klebsiella pneumoniae [K. pneumoniae] as the cause of disease - Dorsalgia, unspecified - Hypothyroidism, unspecified - Hyperuricemia without signs of inflammatory arthritis and top - Liver transplant status - retirement (current) use of bisphosphonates - Adverse effect of selective serotonin and norepinephrine reup - Adverse effect of selective serotonin and norepinephrine reup - Chronic respiratory failure with hypoxia - Chronic respiratory failure with hypoxia - Unspecified mood [affective] disorder - Hypothyroidism, unspecified - Other persistent atrial fibrillation - Chronic pain syndrome - Allergy status to narcotic agent status - Acute cystitis without hematuria - Hyperuricemia without signs of inflammatory arthritis and top - retirement (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 - Anemia, unspecified - Dorsalgia, unspecified - Hyperlipidemia, unspecified - Unspecified mood [affective] disorder - Liver transplant status - Other disorders of lung - meterman (current) use of bisphosphonates - Acute kidney failure, unspecified - Chronic pain syndrome - 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 - Psychophysiologic insomnia - Other disorders of lung - 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 - Psychophysiologic insomnia - Acute cystitis without hematuria - Do not resuscitate - Klebsiella pneumoniae [K. 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 [place] TYPE: Medical Surgical COMPLAINT: - ZULAY,UTI,R FOOT FX DIAGNOSES: - Scoliosis, unspecified - Displaced fracture of second metatarsal bone, right foot, ini - Unspecified place in unspecified non-institutional (private) - Other nursing home (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 - Unspecified fall, initial encounter - Acute kidney failure, unspecified - Other specified bacterial agents as the cause of diseases cla - Chronic kidney disease, unspecified - Unspecified place in unspecified non-institutional (private) - Hypothyroidism, unspecified - Urinary tract infection, site not specified - Other specified bacterial agents as the cause of diseases cla - Restless legs syndrome - Hypothyroidism, unspecified - Raynaud's syndrome without gangrene - Abnormal coagulation profile - Allergy status to narcotic agent status - Displaced fracture of second metatarsal bone, right foot, ini - Liver transplant status - Displaced fracture of third metatarsal bone, right foot, subs - Allergy status to narcotic agent status - Displaced fracture of first metatarsal bone, right foot, init - Chronic kidney disease, unspecified - Displaced fracture of fourth metatarsal bone, right foot, sub - Displaced fracture of third metatarsal bone, right foot, subs - Abnormal coagulation profile - Scoliosis, unspecified - Other nursing home (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 - Adverse effect of anticoagulants, initial encounter - Urinary tract infection, site not specified - Displaced fracture of first metatarsal bone, right foot, init - Raynaud's syndrome without gangrene - Unspecified fall, initial encounter - Liver transplant status - Dependence on supplemental oxygen - Adverse effect of anticoagulants, initial encounter - Displaced fracture of fourth metatarsal bone, right foot, sub - Dependence on supplemental oxygen - Other chronic pain - Other chronic pain - Restless legs syndrome [email or web address]
--- NOTE | 2019-09-30 11:34 | EKG ---
[facility] [address] [facility] [place] [address] Signed Normal sinus rhythm Possible Left atrial enlargement Nonspecific ST and T wave abnormality Abnormal ECG When compared with ECG of 12-JUN-2019 11:52, Sinus rhythm has replaced Atrial fibrillation Non-specific change in ST segment in Lateral leads Nonspecific T wave abnormality now evident in Inferior leads T wave inversion now evident in Anterior leads QT has shortened Confirmed by CASSANDRA FLETCHER MD ([id number]) on 09/30/2019 11:34:39 AM Electronically Signed By: CASSANDRA FLETCHER MD 09/30/19 1134 PATIENT NAME: COLE ERNST Electrocardiogram DATE OF : 45 PHYSICIAN: CASSANDRA FLETCHER MD REPORT #: [id number] REPORT IS CONFIDENTIAL AND NOT TO BE RELEASED WITHOUT AUTHORIZATION
== END 2019-09-28 22:45 | disposition home or self-care (01) ==
LOC: ED 20:00
DX: R41.0 Disorientation, unspecified (principal); E03.9 Hypothyroidism, unspecified; N18.9 Chronic kidney disease, unspecified; I48.91 Unspecified atrial fibrillation; Z88.5 Allergy status to narcotic agent; Z79.899 Other long term (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
CPT/HCPCS: 51701; 71045; 80053; 81001; 84484; 85025; 93005; 93010; 99285-25; G0480; J7030

== ENCOUNTER 2019-10-16 14:24 | Emergency (ER) | payer MEDICARE, OTHER ==
[~2019-10-16] VITALS: Ht 157.5 cm; Wt 99.3 kg
--- OUTSIDE RECORDS SUMMARY | ~2019-10-16 | XMS | Encounter Summary ---
Demographics + + + | Address | [address] | | | [place] [address] | + + + | Home Phone | | + + + | Preferred Language | Unknown | + + + | Marital Status | Single | + + + | Temple Affiliation | 1041 | + + + | Race | Unknown | + + + | Ethnic Group | Unknown | + + + Author + + + | Author | [facility] | | | and [place] | + + + | Organization | [facility] | | | [...] Team Providers + +------+ + | Care Supervisor Belt And Link Assembly Name | Role | Phone | + +------+ + | Rick Osorio DO | PCP | | + +------+ + Encounter Details +--------+ + + + + | Date | Type | Department | Care Team | Description | +--------+ + + + + | 11/15/ | Orders Only | [facility] | Emil Oliva MD | | | 2014 | | NEPRHOLOGY [place] | [address] [facility] | | | | | [address] | [address] [place], [place] | | | | | [address] [place], [place] | [address] | | | | | [address] | | | | | | [phone] | | | +--------+ + + + [...] as of this encounter Plan of Treatment +--------+---------+ + + + | Date | Type | Specialty | Care Team | Description | +--------+---------+ + + + | 10/24/ | Office | Cardiology | Yaquelin Alves DO | | | 2019 | Visit | | [address] | | | | | | [place], [place] | | | | | | [address] | | | | | | | | +--------+---------+ + + + documented as of this encounter Procedures + +--------+ + + + | Procedure Name | Priori | Date/Time | Associated Diagnosis | Comments | | | ty | | | | + +--------+ + + + | EXTERNAL LAB: GREGG | Routin | 11/15/2014 | | Results for this | | | e | 12:00 AM | | procedure are in the | | | | PDT | | results section. | + +--------+ + + + | URINALYSIS WITH | Routin | 11/15/2014 | | Results for this | | MICROSCOPIC IF | e | 12:00 AM | | procedure are in the | | INDICATED | | PDT | | results section. | + +--------+ + + + | VITAMIN D, | Routin | 11/15/2014 | | Results for this | | DEFICIENCY SCREEN | e | 12:00 AM | | procedure are in the | | (25-HYDROXY) | | PDT | | results section. | + +--------+ + + + | PARATHYROID HORMONE, | Routin | 11/15/2014 | | Results for this | | INTACT AND CALCIUM | e | 12:00 AM | | procedure are in the | | | | PDT | | results section. | + +--------+ + + + | PROTEIN/CREATININE | Routin | 11/15/2014 | | Results for this | | RATIO, URINE | e | 12:00 AM | | procedure are in the | | | | PDT | | results section. | + +--------+ + + + | URIC ACID | Routin | 11/15/2014 | | Results for this | | | e | 12:00 AM | | procedure are in the | | | | PDT | | results section. | + +--------+ + + + | MAGNESIUM | Routin | 11/15/2014 | | Results for this | | | e | 12:00 AM | | procedure are in the | | | | PDT | | results section. | + +--------+ + + + | RENAL FUNCTION PANEL | Routin | 11/15/2014 | | Results for this | | | e | 12:00 AM | | procedure are in the | | | | PDT | | results section. | + +--------+ + + + documented in this encounter Results Parathyroid Hormone, Intact and Calcium (11/15/2014 12:00 AM PDT) + +-------+ + + + | Component | Value | Ref Range | Performed | Pathologist | | | | | At | Signature | + +-------+ + + + | PTH Intact | 36.81 | 15 - 65 | EXTERNAL | | | | | | LAB | | + +-------+ + + + | Calcium | 9.1 | 8.4 - 10.2 | EXTERNAL | | | | | [...] + +---------+ + + Protein/Creatinine Ratio, Urine (11/15/2014 12:00 AM PDT) + + + + + + | Component | Value | Ref Range | Performed | Pathologist | | | | | At | Signature | + + + + + + | Protein/Cre | 222.2 (A) | 0 - 150 | EXTERNAL | | | at Ratio [...] + + Vitamin D, Deficiency Screen (25-Hydroxy) (11/15/2014 12:00 AM PDT) + +-------+ + + + | Component | Value | Ref Range | Performed | Pathologist | | | | | At | Signature | + +-------+ + + + | Vit D, | 37 | 30 - 100 | EXTERNAL | | | 25-Hydroxy | [...] + +---------+ + + Urinalysis with Microscopic if Indicated (11/15/2014 12:00 AM PDT) + + + + [...] + + + | Spec Grav, | 1.007 | 1.005 - 1.030 | EXTERNAL | | | Fluid | | | LAB | | + + + + + + | Leukocyte | 1+Comment: 100 | | EXTERNAL | | | Esterase, [...] + | pH, Urine | 5 | 5 - 9 | EXTERNAL | | | | | [...] + + + + | Glucose, | | | EXTERNAL | | | Urine [...] + +---------+ + + External Lab: CBC (11/15/2014 12:00 AM PDT) + + + + + + | Component | Value | Ref Range | Performed | Pathologist | | | | | At | Signature | + + + + + + | WBC | 7.2 | 4.5 - 11.0 10 | EXTERNAL | | | | | | LAB | | + + + + + + | Red Blood | 3.16 (A) | 3.8 - 5.1 10 | EXTERNAL | | | Cells | | | LAB | | | Counted | | | | | + + + + + + | Hemoglobin | 11.1 (A) | 12.0 - 16.0 | EXTERNAL | | | | | g/dL | LAB | | + + + + + + | Hematocrit, | 33.8 (A) | 35 - 45 % | EXTERNAL | | | POC | | | LAB | | + + + + + + | MCV | 106.8 (A) | 81 - 99 fL | EXTERNAL | | | | | | LAB | | + + + + + + | MCH | 35 (A) | 27 - 33 pg | EXTERNAL | | | | | | LAB | | + + + + + + | MCHC | 33 | 30 - 36 g/dL | EXTERNAL | | | | | | LAB | | + + + + + + | Platelet | 139 (A) | 140 - 440 % | EXTERNAL | | | Count | | | LAB | | | Plasma | | | | | + + + + + + | RDW-CV | 14.1 | 10.5 - 15.0 % | EXTERNAL | | | | | | LAB | | + + + + + + | MPV | | fL | EXTERNAL | | | | | | LAB | | + + + + + + | Differentia | Auto | | EXTERNAL | | | l Type | | | LAB | | + + + + + + | % Segmented | 32.9 (A) | 39 - 80 % | EXTERNAL | | | | | | LAB | | | Neutrophils | | | | | + + + + + + | % | 49.8 (A) | 24 - 44 % | EXTERNAL | | | Lymphocytes | | | LAB | | + + + + + + | % Monocytes | 13.5 (A) | 0 - 12 % | EXTERNAL | | | | | | LAB | | + + + + + + | % | 2.9 | 0 - 6 % | EXTERNAL | | | Eosinophils | | | LAB | | + + + + + + | % Basophils | 0.9 | 0 - 2 % | EXTERNAL | | | | | | LAB | | + + + + + + | Absolute | | / L | EXTERNAL | | | Segmented | | | LAB | | | Neutrophils | | | | | + + + + + + | Absolute | | / L | EXTERNAL | | | Lymphocytes | | | LAB | | + + + + + + | Absolute | | / L | EXTERNAL | | | Monocytes | | | LAB | | + + + + + + | Absolute | | / L | EXTERNAL | | | Eosinophils | | | LAB | | + + + + + + | Absolute | | [...] | + +---------+ + + Uric Acid (11/15/2014 12:00 AM PDT) + + + + + + | Component | Value | Ref Range | Performed | Pathologist | | | | | At | Signature | + + + + + + | Uric Acid | 10.0 (A) | 2.3 - 6.6 | EXTERNAL | | | | | [...] | | + +---------+ + + Magnesium (11/15/2014 12:00 AM PDT) + +-------+ + + + | Component | Value | Ref Range | Performed | Pathologist | | | | | At | Signature | + +-------+ + + + | Magnesium | 1.8 | 1.7 - 2.5 mg/dL | EXTERNAL | | | | [...] + +---------+ + + Renal Function Panel (11/15/2014 12:00 AM PDT) + + + + + + | Component | Value | Ref Range | Performed | Pathologist | | | | | At | Signature | + + + + + + | Glucose, | 82 | 70 - 100 mg/dL | EXTERNAL | | | Fasting | | | LAB | | + + + + + + | BUN | 33 (A) | 6 - 23 mg/dL | EXTERNAL | | | | | | LAB | | + + + + + + | Creatinine | 1.38 (A) | 0.70 - 1.25 | EXTERNAL | | | | | mg/dL | LAB | | + + + + + + | PHOSPHORUS | | mg/dL | EXTERNAL | | | | | | LAB | | + + + + + + | Albumin | 3.7 | 3.5 - 5.0 | EXTERNAL | | | | | | LAB | | + + + + + + | Na | 137 | 132 - 143 | EXTERNAL | | | | | mmol/L | LAB | | + + + + + + | K | 4.4 | 3.6 - 5.1 | EXTERNAL | | | | | mmol/L | LAB | | + + + + + + | Cl | 94 (A) | 95 - 112 mmol/L | EXTERNAL | | | | | | LAB | | + + + + + + | CO2 | 36 (A) | 19 - 31 mmol/L | EXTERNAL | | | | | | LAB | | + + + + + + | Anion Gap | 11.4 | 7 - 21 mmol/L | EXTERNAL | | | | | | LAB | | + + + + + + | eGFR if not | | | EXTERNAL | | | | | | LAB | | | GUYANESE | | | | | + + + + + + | Phosphorus, | 4.0 | 2.5 - 5.0 | EXTERNAL | | | Inorganic | | | LAB | | + + + + + + | BUN/Creatin | 23.9 | 6.0 - 28.6 | EXTERNAL | | | ine Ratio | | | LAB | | + + + + + + | Calcium | 9.1 | 8.4 - 10.2 | EXTERNAL | | | | | mg/dL | LAB | | + + + + + + | Estimated | 38 [...]
--- OUTSIDE RECORDS SUMMARY | ~2019-10-16 | XMS | Encounter Summary ---
Demographics + + + | Address | [address] | | | [place] [address] | + + + | Home Phone | | + + + | Preferred Language | Unknown | + + + | Marital Status | Unknown | + + + | Sabianism Affiliation | Unknown | + + + | Race | Unknown | + + + | Ethnic Group | Unknown | + + + Author + + + | Author | [facility] | + + + | Organization | [facility] | + + + | Address | Unknown | + + + | Phone | Unavailable | + + + Care Team Providers + +------+ + | Care Rn Iv Therapy Name | Role | Phone | + +------+ + PCP | Unavailable | + +------+ + Encounter Details +--------+ + + + + | Date | Type | Department | Care Team | Description | +--------+ + + + + | 07/22/ | Abstract | Clinical | Ashlyn Albarran | | | 2019 | | Transplant Services | MD Aric [address] | | | | | [address] | [facility] [place] | | | | | [place], | [address] | | | | | [place] [address] | [phone] | | | | | [phone] | | | +--------+ + + + [...]
--- OUTSIDE RECORDS SUMMARY | ~2019-10-16 | XMS | Encounter Summary ---
Demographics + + + | Address | [address] | | | [place] [address] | + + + | Home Phone | | + + + | Preferred Language | Unknown | + + + | Marital Status | Unknown | + + + | Rastafari Affiliation | Unknown | + + + | Race | Unknown | + + + | Ethnic Group | Unknown | + + + Author + + + | Author | [facility] | + + + | Organization | [facility] | + + + | Address | Unknown | + + + | Phone | Unavailable | + + + Care Team Providers + +------+ + | Care Store Receiver Name | Role | Phone | + [...] | | [address] | [facility] [place] | | | | | [place], | [address] | | | | | [place] [address] | [phone] | | | | | [phone] | | | +--------+ + + + [...] + | [facility] | | | [phone] | | [facility] | | | | + +---------+ + + | [facility] | | [place], [place] | [phone] | | [facility]OSPITAL | | | | + +---------+ + + documented in this encounter Visit Diagnoses Not on filedocumented in this encounter"
--- OUTSIDE RECORDS SUMMARY | ~2019-10-16 | XMS | Encounter Summary ---
Demographics + + + | Address | [address] | | | [place] [address] | + + + | Home Phone | | + + + | Preferred Language | Unknown | + + + | Marital Status | Single | + + + | Catholic Affiliation | 1041 | + + + | Race | Unknown | + + + | Ethnic Group | Unknown | + + + Author + + + | Author | [facility] | | | and [place] | + + + | Organization | [facility] | | | [...] Team Providers + +------+ + | Care Adding Machine Mechanic Name | Role | Phone | + +------+ + | Rick Osorio DO | PCP | | + +------+ + Encounter Details +--------+ + + + + | Date | Type | Department | Care Team | Description | +--------+ + + + + | 11/15/ | Orders Only | [facility] | Emil Oliva MD | | | 2014 | | NEPHROLOGY [place] | [address] | | | | | [address] | [address] [place], [place] | | | | | [address] [place], [place] | [address] | | | | | [address] | | | | | | [phone] | | | +--------+ + + + [...] | | | | | [place], [place] | | | | | | [address] | | | | | | | [...]
--- OUTSIDE RECORDS SUMMARY | ~2019-10-16 | XMS | Encounter Summary ---
Demographics + + + | Address | [address] | | | [place] [address] | + + + | Home Phone [...] Team Providers + +------+ + | Care Boiler Plant Worker Name | Role | Phone | + +------+ + | Rick Osorio DO | PCP | | + +------+ + Encounter Details +--------+ + + + + | Date | Type | Department | Care Team | Description | +--------+ + + + + | 11/15/ | Orders Only | [facility] | Emil Oliva MD | | | 2014 | | NEPHROLOGY [place] | [address] | | | | | [address] | [address] [place], [place] | | | | | [address] [place], [place] | [address] | | | | | [address] | | | | | | [phone] | | | +--------+ + + + [...] | | | | | [place], [place] | | | | | | [address] | | | | | | | [...]
--- OUTSIDE RECORDS SUMMARY | ~2019-10-16 | XMS | Encounter Summary ---
Demographics + + + | Address | [address] | | | [place] [address] | + + + | Home Phone [...] + + + | Author | [facility] | | | and [place] | + + + | Organization | [facility] | | | [...] Providers + +------+ + | Care Gas Golf Cart Repairer Name | Role | Phone | + +------+ + | Yovani Santana MD | PCP | | + +------+ + Encounter Details +--------+ + + + + | Date | Type | Department | Care Team | Description | +--------+ + + + + | 05/10/ | Hospital | [facility] | Gary Melendez, | Hypoxemia; | | 2014 | Encounter | MED CTR XRAY [address] | MD [address] | Restrictive lung | | | | [address] | [place], [place] | disease | | | | [place] [address] | [address] | | | | | [phone] | | | | | | | [...] [place] | | | | | | [address] | | | | | | | [...] + | MISCELLANEOUS LAB | | | [phone] | + +---------+ + + | MISCELANIOUS LAB | | | [phone] | + +---------+ + + documented in this encounter Visit Diagnoses + + | Diagnosis | + + | Hypoxemia | + + | Restrictive lung disease Other diseases of lung, not elsewhere classified | + + documented in this encounter"
--- OUTSIDE RECORDS SUMMARY | ~2019-10-16 | XMS | Clinical Summary ---
Demographics + + + | Address | [address] | | | [place] [address] | + + + | Home Phone | | + + + | Preferred Language | Unknown | + + + | Marital Status | | + + + | Baptist Affiliation | 1041 | + + + | Race | Unknown | + + + | Ethnic Group | Unknown | + + + Author + + + | Author | [facility] [employer] (Historical as of | | | 01-06-19) | + + + | Organization | [facility] [employer] (Historical as of | | | 01-06-19) [...] Team Providers + +------+ + | Care Wire Coiner Name | Role | Phone | + [...] | MA - GENERIC | MA-GEN | [id number] | [employer] | | | | | [...] | | | | | | | [address] | + +--------+ +--------+ + +
--- OUTSIDE RECORDS SUMMARY | ~2019-10-16 | XMS | Encounter Summary ---
Demographics + + + | Address | [address] | | | [place] [address] | + + + | Home Phone [...] Providers + +------+ + | Care Control Clerk Food And Beverage Name | Role | Phone | + [...] | | | | | [place], | [place], [place] | | | | | [place] [address] | [address] | | | | | [phone] | | | +--------+ + + + [...]
--- OUTSIDE RECORDS SUMMARY | ~2019-10-16 | XMS | Encounter Summary ---
Demographics + + + | Address | [address] | | | [place] [address] | + + + | Home Phone [...] Team Providers + +------+ + | Care Band Manager Name | Role | Phone | + +------+ + | Yovani Santana MD | PCP | | + +------+ + Encounter Details +--------+ + + + + | Date | Type | Department | Care Team | Description | +--------+ + + + + | 01/14/ | Hospital | [facility] | Jennifer Hartman MD | Near syncope; | | 2015 - | Encounter | [facility] | [address] | Elevated troponin; | | | | CARE FLOOR [address] | [place] [address] | Non-STEMI (non-ST | | 01/19/ | | [address] | [phone] | elevated myocardial | | 2015 | | [place], [place] | | infarction) ([facility]); | | | | [address] | | CKD (chronic kidney | | | | [phone] | | disease), | | | | | | unspecified stage; | | | | | | Leukocytosis; ZULAY | | | | | | (acute kidney | | | | | | injury) ([facility]); Liver | | | | | | replaced by | | | | | | transplant ([facility]) | +--------+ + + + + [...] Date of Service: 01/19/15 0753 Status: Signed Manager Organizational: Emma Hardy MD (Physician) Related Notes: Original Note by Emma Hardy MD (Physician) filed at 01/19/15 0800 [facility] Service: Hospitalist Physician Discharge Summary Patient ID: [...] history of chronic pain, on chronic methadone, 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 The patient was taken off methadone about 3 weeks prior to admission. Pre vious creatinine was 1.38 and the patient was presented at [facility] in [place] , was found to have elevated troponin of 0.55 and noted to have creatinine of 2.4 and leukoc ytosis and was transferred for scw-WB-ktagdpcgi DE. HOSPITAL COURSE The patient was admitted with dld-IL-ucdvsiytl DE. Cardiology consult was obtained. She was started [...] lipid-lowerin g therapy. The patient also has tljqq-af-bclyucp kidney disease, stage III. Acute renal fail [...] to have severe protein calorie malnutrition and material reprocessing associate was consulted. Her blood pressures remain stable. [...] 1.5* 1.8 1.4* Invalid input(s): ABG Disposition: [facility] facility Follow up: Ki De Jesus DO [address] [facility] [address] [place] [address] Schedule an appointment as soon as possible for a visit in 4 days Juan Ramey MD [address] [facility] [address] [facility] [address] Schedule an appointment as soon as possible for a visit in 1 week Follow up biopsy results Juju Riggins MD [address] [place] [address] Schedule an appointment as soon as [...] are the prescriptions that you need to mixing picker tender. You may get the following medications from [...] summary. This entry has been created using Command Information Speech Recognition software and BetaVersity. The entry has been reviewed and there [...] (none) Author Type: Registered Nurse Filed: 01/19/15 5062 Date of Service: 01/19/15 1300 Status: Signed Manager Organizational: Shaista Lin RN (Registered Nurse) Pt discharged via wheel chair on 2 L of oxygen. To [facility] in [place]. Pt alert and o rientedX4. onver alessandro Transaction, Provider Unknown - 01/19/2015 8:20 AM PDT Case Management by PHUONG Roman at 01/19/15819 Author: PHUONG Roman Service: (none) Author Type: Telegrapher Agent Filed: 01/19/15819 Date of Service: 01/19/15819 Status: Signed Manager Organizational: PHUONG Roman (Telegrapher Agent) Disposition: [facility] Transportation: facility van All orders, signed AVS, and prescriptions have been faxed- yes All DC paperwork completed Patient and family in agreement with discharge plan Medicare important message (Given or N/A): PHUONG Roman onver alessandro Transaction, Provider Unknown - 01/19/2015 4:13 AM PDT Nurse Progress Note by Yady Singh RN at 01/19/15412 Author: Yady Singh RN Service: (none) Author Type: Registered Nurse Filed: 01/19/15624 Date of Service: 01/19/15412 Status: Signed Manager Organizational: Yady Singh RN (Registered Nurse) Patient resting quietly all night. Medicated once for all over general pain. No further com plaints. VSS. onver alessandro Transaction, Provider Unknown - 01/18/2015 3:21 PM PDT Case Management by PHUONG Roman at 01/18/151520 Author: PHUONG Roman Service: (none) Author Type: Telegrapher Agent Filed: 01/18/151520 Date of Service: 01/18/151520 Status: Signed Manager Organizational: PHUONG Roman (Telegrapher Agent) spoke w/ Will at [place] who reports they can accept and transport pt tomorrow AM. PHUNOG Roman osangela Kirk MD - 01/18/2015 3:10 PM PDT Progress Notes by Rosangela Steinberg MD at 01/18/15 151 Author: Rosangela Steinberg MD Service: Infectious Disease Author Type: Physician Filed: 01/18/15 3691 Date of Service: 01/18/151509 Status: Signed Manager Organizational: Rosangela Steinberg MD (Physician) [facility] Service: Infectious Disease Progress Note Hospital Day: [...] vomiting and diarrhea. Had initially presented to [facility] in [place] with similar complaints. Was foun d to have an elevated troponin. She was mainly admitted as a non-STEMI. Found to have a leuk ocytosis. Since patient is immunocompromised, she was started empirically on IV ceftriaxone. Chest x-ray showed no infiltrate. Patient denies any recent fevers or chills. She went to [facility] mainly becau se of syncope. [...] extraluminal fluid collection abdomen pelvis without contrast [[id number]] Impression 1. Hypoinflated chest, but no evident infiltrate chest 1 view [[id number]] Impression 1. Indication for study and thus [...] Status: Full Code ROSANGELA STEINBERG MD 01/18/2015 Wade Rider MD - 01/18/2015 7:49 AM PDTFormatting of this note might be different from the origin al. Progress Notes by Emma Hardy MD at 01/18/15 0749 Author: Emma Hardy MD Service: (none) Author Type: Physician Filed: 01/18/15 1445 Date of Service: 01/18/1549 Status: Signed Manager Organizational: Emma Hardy MD (Physician) [facility] Service: Hospitalist Progress Note Hospital Day: LOS: 4 days SUBJECTIVE Patient Summary: 69-year-old female with history of liver transplant secondary to [facility] biliary cirrhosis on immunosuppression, chronic pain, [...] C) Temporal 70 16 99 % - 01/17/15 1941 152/85 mmHg 98.2 F (36.8 C) Oral [...] AUTOMATED AUTOMATED Recent Labs Lab 01/18/15 0325 01/17/15222501/17/15 1413 01/17/15 0353 01/16/15 0321 NA 136 [...] CKMBINDEX -- -- 2.6 Recent Labs Lab 01/18/1532401/17/15222501/17/15 1413 PHOS 2.6 3.2 2.1* Recent Labs Lab 01/18/1532401/17/15222501/17/15 1413 MG 1.8 1.4* 1.2* Invalid input(s): [...] (HCC) ASSESSMENT & PLAN 1. Non-ST elevation DE. Possible demand ischemia. Will schedule for nuclear [...] schrader 8. Deconditioning Continue physical therapy and fpc facility placement versus home PT 9. Chronic [...] AM This entry has been created using Command Information Speech Recognition software and BetaVersity. The entry has been reviewed and there may still exist sound alike word errors. onversion Trans action, Provider Unknown - 01/18/2015 5:16 AM PDT Nurse Progress Note by Yady Singh RN at 01/18/15 05 Author: Yady Singh RN Service: (none) Author Type: Registered Nurse Filed: 01/18/152104 Date of Service: 01/18/15515 Status: Signed Manager Organizational: Yady Singh RN (Registered Nurse) Pt taken [...] Filed: 01/18/15 1631 Date of Service: 01/17/15 1629 Status: Signed Manager Organizational: Jose Maria Espinal MD (Physician) Related Notes: Original Note by Jose Maria Espinal MD (Physician) filed at 01/17/152012 [facility] Service: Hospitalist Progress Note Pt: Cole Ernst AGE/SEX: 69 y.o. female : 1945 ROOM: [address] [place] [address] History of Present Illness: " The patient [...] who called EMS. Patient was taken to [facility] in [place]. Susie ent was noted to have a [...] Patient had borderline blood pressure. While at [facility] with systolic in the low 90s. [...] CT done several days ago while in [place]. She also stat es that her vomiting and diarrhea have significantly improved. She denies any fevers, hemat emesis, melena, bright red blood per rectum, hematuria, dysuria, she denies any leg pain or swelling. No palpitations. She states she does have a history of "kidney disease" and was told that it was secondary to cyclosporine. However, she is not seen kidney specialist [facility] e her liver transplant.".....per admitting [...] collected as n oted. I urged the event staff to introduce a hat so that sample [...] behavior is normal. LABS: Recent Labs Lab 01/17/1535201/16/1532001/15/15 0632 WBC 10.74 10.55 13.11* HGB 12.0 11.6 11.2* HCT 35.8 34.5 34.4 PLT 149* 144* 160 NEUTOPHILPCT 52.08 37.99 50.65 MONOPCT 10.07 11.24 9.60 Recent Labs Lab 01/17/15 14101/17/1535201/16/15200201/16/1532001/15/15 0632 NA -- 138 -- -- 138 [...] 1413 PHOS 2.1* Recent Labs Lab 01/17/15 14101/16/15200201/16/15 032 MG 1.2* 1.5* 1.2* Recent Labs Lab [...] contrast. Prior study for comparison: None FINDINGS: [employer] 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 deg enerative changes of [...] LA/Ao: 1.57 D-E Excursion: 2.11 cm E-F Woods: 0.09 m/s EPSS: 0.48 cm HR: 77.41 [...] 21.32 cm MCO: 394.46 ms MV A Bilyl: 0.39 m/s MV DecT: 206.91 ms MV [...] TV A Billy: 0.66 m/s TV Dec Woods: 4.36 m/s2 TV Dec Time: 184.41 ms TV E Billy: 0.80 m/s TV E/A Rat io: 1.21 Electrical Design Technician: NEDRA Authenticated by: Gil Coronel MD Report [...] nutritional supplements as recommend ed by nutrition service/material reprocessing associate. Jose Maria Espinal MD 01/17/2015 4:29 PM onversion Transa ction, Provider Unknown - 01/17/2015 3:15 PM PDT Case Management by PHUONG Sandhu at 01/17/15 1515 Author: PHUONG Sandhu Service: (none) Author Type: Defence Intelligence Analyst Filed: 01/17/15 3148 Date of Service: 01/17/155 Status: Signed Manager Organizational: PHUONG Sandhu (Defence Intelligence Analyst) 01/17/15 1500 Discharge Planning Evaluation Admitting Diagnosis Near syncope, elevated tropinin, non-stemi, CKD Anticipated Disposition Facility Type [facility] facility Medicare Important Message (MEREDITH) Given Prison Facility Other (comment) ([facility]) COMPLIANCE REVIEW OFFICER met with Pt for discharge planning, on board with going to [facility] when medically ready. COMPLIANCE REVIEW OFFICER p/c to [facility] - will accept Pt when medically ready. [facility] ([place] miles) [address] [facility], [place] Milling Machinist: Will DCP: [facility] Transportation: [facility] Facility Van - Milling Machinist: Will Medicare important message signed and copy in chart LUIS FOUNTAIN, Telegrapher Agent [phone] cell osangela Kirk MD - 01/17/2015 1:11 PM PDT Progress Notes by Rosangela Steinberg MD at 01/17/15 1311 Author: Rosangela Steinberg MD Service: Infectious Disease Author Type: Physician Filed: 01/17/15 7167 Date of Service: 01/17/15 1311 Status: Signed Manager Organizational: Rosangela Steinberg MD (Physician) [facility] Service: Infectious Disease Progress Note Hospital Day: [...] vomiting and diarrhea. Had initially presented to [facility] in [place] with similar complaints. Was foun d to have an elevated troponin. She was mainly admitted as a non-STEMI. Found to have a leuk ocytosis. Since patient is immunocompromised, she was started empirically on IV ceftriaxone. Chest x-ray showed no infiltrate. Patient denies any recent fevers or chills. She went to [facility] mainly becau se of syncope. [...] cardiology to proceed for colonoscopy. Per nu rsing report, still has diarrhea. According to the [...] (36.8 C)] 98.3 F (36.8 C) (01/17 124) BP: (148-182)/(71-99) 155/96 mmHg (01/17 124) Heart Rate: [64-78] 64 (01/17 124) Resp: [16-18] 18 (01/17 124) SpO2: [95 %-99 %] 98 % (01/17 124) Weight: [86.5 kg (190 lb 11.2 oz)] [...] extraluminal fluid collection abdomen pelvis without contrast [[id number]] Impression 1. Hypoinflated chest, but no evident infiltrate chest 1 view [[id number]] Impression 1. Indication for study and thus [...] Status: Full Code ROSANGELA STEINBERG MD 01/17/2015 axu, Elgin Rahman MD - 01/16/2015 9:28 PM PDTFormatting of this note might be different from the or iginal. Progress Notes by Juju Riggins MD at 01/16/152127 Author: Juju Riggins MD Service: Cardiology Author Type: Physician Filed: 01/16/152137 Date of Service: 01/16/152127 Status: Signed Manager Organizational: Juju Riggins MD (Physician) [facility] Service: Cardiology Progress Note Hospital Day: LOS: [...] original. Case Management by PHUONG Sandhu at 01/16/153 Author: PHUONG Sandhu Service: (none) Author Type: Defence Intelligence Analyst Filed: 01/16/156 Date of Service: 01/16/151642 Status: Signed Manager Organizational: PHUONG Sandhu (Defence Intelligence Analyst) 01/16/15 1600 Discharge Planning Evaluation Admitting Diagnosis Near syncope, elevated tropinin, non-stemi, CKD Anticipated Disposition Facility Type [facility] facility [facility] Facility Other (comment) ([facility]) PHUONG received p/c from Will, admissions at [facility], states they are willi ng to accept Pt to their Prison Facility, states their house physician will not pre scribe Methadone. Will states she will start authorization process with [employer] who is Managing the Medicare benefits. Will states the first 20 days are covered at 100% then day 21 will be $100.00 a day. DCP: [facility] or [place] LUIS FOUNTAIN,Telegrapher Agent [phone] cell Jose Maria Grimes MD - 01/16/2015 11:29 AM PDTFormatting of this note might be different from armando tellez original. Progress Notes by Jose Maria Espinal MD at 01/16/15 1129 Author: Jose Maria Espinal MD Service: Hospitalist Author Type: Physician Filed: 01/17/15 1149 Date of Service: 01/16/15 112 Status: Signed Manager Organizational: Jose Maria Espinal MD (Physician) Related Notes: Original Note by Jose Maria Espinal MD (Physician) filed at 01/16/15 1137 [facility] Service: Hospitalist Progress Note Pt: Cole Ernst AGE/SEX: 69 y.o. female : 1945 ROOM: [address] [place] [address] History of Present Illness: " The patient [...] who called EMS. Patient was taken to [facility] in [place]. Susie ent was noted to have a [...] Patient had borderline blood pressure. While at [facility] with systolic in the low 90s. [...] CT done several days ago while in [place]. She also stat es that her vomiting and diarrhea have significantly improved. She denies any fevers, hemat emesis, melena, bright red blood per rectum, hematuria, dysuria, she denies any leg pain or swelling. No palpitations. She states she does have a history of "kidney disease" and was told that it was secondary to cyclosporine. However, she is not seen kidney specialist [facility] e her liver transplant.".....per admitting [...] collected as n oted. I urged the event staff to introduce a hat so that sample [...] behavior is normal. LABS: Recent Labs Lab 01/16/1532001/15/15 0632 01/14/15 1548 WBC 10.55 13.11* 16.19* HGB [...] 01/16/15 0321 PHOS 2.0* Recent Labs Lab 01/16/15 0321 01/15/15 0632 01/14/15 1549 MG 1.2* 1.7 1.9 Recent Labs Lab 01/14/15 1549 AMYLASE 85 Recent Labs Lab 01/14/15 1549 LIPASE 559* Recent Labs Lab 01/14/15 1548 APTT 26 INR 1.3 Recent Labs Lab 01/16/15 0321 01/15/15 0623 TSH 18.97* 9.51* FREET4 0.9 -- [...] contrast. Prior study for comparison: None FINDINGS: [employer] 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 deg enerative changes of [...] LA/Ao: 1.57 D-E Excursion: 2.11 cm E-F Woods: 0.09 m/s EPSS: 0.48 cm HR: 77.41 [...] TV A Billy: 0.66 m/s TV Dec Woods: 4.36 m/s2 TV Dec Time: 184.41 ms TV E Billy: 0.80 m/s TV E/A Rat io: 1.21 Electrical Design Technician: NEDRA Authenticated by: Gil Coronel MD Report [...] pressure has been showing increasing trend since oh toprolol has been held on admission due [...] Benito, PT at 01/16/15 1102 Author: Natalio Benito, PT Service: (none) Author Type: Physical Therapist Filed: 01/16/15 1220 Date of Service: 01/16/15 1102 Status: Signed Manager Organizational: Natalio Benito PT (Physical Therapist) 01/16/15 1102 PT Last Visit PT Received On 01/16/15 Reason for Treatment Deconditioning;Other (comment) (NSTEMI; Syncope) Requires PT Follow Up Awaiting tx order Follow up PT Only? No PT Eval/Reassessment Date 01/16/15 Assistance Required 1 person Hydrodynamicist Needed No Home Environment Type of Home Apartment ground level Home Exterior Layout Entry steps none Home Interior Layout Lives on main level with bedroom/bathroom Bathroom Shower/Tub Tub/shower unit Bathroom Toilet Standard Bathroom Equipment Shower stool;Grab bars in shower/bath;Grab bars outside of shower/bath Bathroom Accessibility Other (Comment) (Small bathroom) Home Equipment Walker 4 wheeled;Cane single point Prior Function Level of Todd Modified independent with functional mobility;Modified independent wi [...] (sitting in recliner w/ call light and EXHAUST EMISSIONS INSPECTOR present) Restraints Initially in Place No Precautions [...] Eval/Reassessment Date 01/16/15 Assistance Required 1 person Hydrodynamicist Needed No Precautions Other Precautions Fall Risk [...] support. Patient in the recli ner w/ EXHAUST EMISSIONS INSPECTOR present at end of session, no new [...] (sitting in recliner w/ call light and EXHAUST EMISSIONS INSPECTOR present) Restraints Initially in Place No Plan [...] Notes by Nupur Tadeo MD at 01/16/15 2501 Author: Nupur Tadeo MD Service: Infectious Disease Author Type: Physician Filed: 01/16/15 1257 Date of Service: 01/16/15 1045 Status: Signed Manager Organizational: Nupur Tadeo MD (Physician) [facility] Service: Infectious Disease Progress Note Hospital Day: [...] vomiting and diarrhea. Had initially presented to [facility] in [place] with similar complaints. Was found to have an elevated troponin . She was mainly admitted as a non-STEMI. Found to have a leukocytosis. Since patient is imm unocompromised, she was started empirically on IV ceftriaxone. Chest x-ray showed no infiltrate. Patient denies any recent fevers or chills. She went to [facility] mainly becau se of syncope. [...] Author: PHUONG Sandhu Service: (none) Author Type: Defence Intelligence Analyst Filed: 01/16/15 1042 Date of Service: 01/16/15 1030 Status: Signed Manager Organizational: PHUONG Sandhu (Defence Intelligence Analyst) 01/16/15 1000 Discharge Planning Evaluation Admitting Diagnosis Near syncope, elevated tropinin, non-stemi, CKD Anticipated Disposition Facility Type [facility] facility COMPLIANCE REVIEW OFFICER met with Pt and discussed discharge planning, states she has concerns returning home at this time, as Pt resides alone. COMPLIANCE REVIEW OFFICER discussed rehab options, SNF vs Home Health vs Outpatient PT. Pt states her sister (Annie Tipton [phone] cell) assists with IADLs as Pt does not dri ve. Pt states she resides alone and has been doing ADLs on her own. Pt states she uses a 4WW with seat at home, then uses a cane when out of the home, stated, "I am a little vain" abou t using the 4WW in public. Pt is interested in [facility], due to close proximity to her home. COMPLIANCE REVIEW OFFICER faxe d SNF referral. Pt is a [...] need SNF Anticipated DCP: Pending placement at [facility] [place] LUIS FOUNTAIN, Telegrapher Agent [phone] cell Luisito Mejía - 01/16/2015 9:12 AM PDTFormatting of this note might be different from the or iginal. Progress Notes by Luisito Thomas MD at 01/16/1512 Author: Luisito Thomas MD Service: Nephrology Author Type: Physician Filed: 01/20/15 190 Date of Service: 01/16/15911 Status: Signed Manager Organizational: Luisito Thomas MD (Physician) [facility] Service: NEPHROLOGY PROGRESS Note Cole Ernst 69 y.o. [phone] [id number] female KI KARGAR Hospital Day: LOS: 2 days The patient is a 69 y.o. 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 Scheduled Medications azaTHIOprine 50 mg Oral Daily [...] K 2.8* 01/14/2015 S/P LIVER TXP AT [place] IN 1991 IMMUNOSUPPRESSION ON CYCLOSPORIN 75 MG BID ON AZA 50 MG DAILY HYPOPHOSPHATEMIA IMPROVING REPLACE TO KEEP P GREATER THAN 2.5 REPEAT P LEVEL IN AM Lab Results Component Value Date PHOS 2.0* 01/16/2015 PHOS 1.5* 01/15/2015 PHOS 1.4* 01/14/2015 Abdominal pain / LEUCOCYTOSIS PER HOSPITALIST CT SCAN WITH ORAL CONTRAST DONE, PLAN FOR COLONOSCOPY Possible UTI pyuria on her urinalysis from [facility] on ceftriaxone CASE DISCUSSED IN DETAIL [...] 01/16/15508 Date of Service: 01/16/15505 Status: Signed Manager Organizational: Michelle Paulson RN (Registered Nurse) Patient resting quietly t/o shift. High CIWA this shift =4. Patient c/o generalized pain, treated with PRN Girard per orders. Patient observed to be sle eping, following PRN medication and repositioning. Patient continues to be NSR-ST on tele. Vitals stable. Will continue to monitor patient. Jose Maria Grimes MD - 01/15/2015 3:19 PM PDTFormatting of this note might be different from armando tellez original. Progress Notes by Jose Maria Espinal MD at 01/15/15 737 Author: Jose Maria Espinal MD Service: Hospitalist Author Type: Physician Filed: 01/16/1507 Date of Service: 01/15/151518 Status: Signed Manager Organizational: Jose Maria Espinal MD (Physician) Related Notes: Original Note by Jose Maria Espinal MD (Physician) filed at 01/15/151939 [facility] Service: Hospitalist Progress Note Pt: Cole Ernst AGE/SEX: 69 y.o. female : 1945 ROOM: [address] [place] [address] History of Present Illness: " The patient [...] who called EMS. Patient was taken to [facility] in [place]. Susie ent was noted to have a [...] Patient had borderline blood pressure. While at [facility] with systolic in the low 90s. [...] CT done several days ago while in [place]. She also stat es that her vomiting and diarrhea have significantly improved. She denies any fevers, hemat emesis, melena, bright red blood per rectum, hematuria, dysuria, she denies any leg pain or swelling. No palpitations. She states she does have a history of "kidney disease" and was told that it was secondary to cyclosporine. However, she is not seen kidney specialist [facility] e her liver transplant.".....per admitting [...] Oral 81 16 97 % - - 01/14/152153 - - - - - - - [...] 01/14/152153 89.6 kg (197 lb 8.5 oz) 01/14/152137 89.6 kg (197 lb 8.5 oz) 01/14/15 [...] contrast. Prior study for comparison: None FINDINGS: Char[employer] 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 deg enerative changes of [...] LA/Ao: 1.57 D-E Excursion: 2.11 cm E-F Woods: 0.09 m/s EPSS: 0.48 cm HR: 77.41 [...] TV A Billy: 0.66 m/s TV Dec Woods: 4.36 m/s2 TV Dec Time: 184.41 ms TV E Billy: 0.80 m/s TV E/A Rat io: 1.21 Electrical Design Technician: NEDRA Authenticated by: Gil Coronel MD Report [...] Elevated troponins, question underlying non ST elevation DE. Continue current medical th erapy. I appreciate [...] Notes by Ronda Michaels RD at 01/15/15 1433 Author: Ronda Michaels RD Service: (none) Author Type: Registered Dietitian Filed: 01/15/15 0436 Date of Service: 01/15/151429 Status: Signed Manager Organizational: Ronda Michaels RD (Registered Dietitian) 01/15/15 2377 Subjective Timepoint Admit Pt c/o In to [...] Estimated Energy Needs Total Energy Estimated Needs 0198-4963 kcal Method for Estimating Needs 25-30 kcal/kg [...] MD Service: Nephrology Author Type: Physician Filed: 01/20/151901 Date of Service: 01/15/15 1043 Status: Signed Manager Organizational: Luisito Thomas MD (Physician) [facility] Service: NEPHROLOGY PROGRESS Note Cole Ernst 69 y.o. [phone] female [facility] Day: LOS: 1 day The patient is a 69 y.o. 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 See ED Record for Physician Inter pretation. 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 REPEAT P LEVEL IN AM Lab Results Component Value Date PHOS 1.5* 01/15/2015 PHOS 1.4* 01/14/2015 Abdominal pain / LEUCOCYTOSIS PER HOSPITALIST CT SCAN WITH ORAL CONTRAST DONE Possible UTI pyuria on her urinalysis from [facility] on ceftriaxone CASE DISCUSSED IN DETAIL WITH PATIENT/ Care team / HOSPITALIST, ANSWERS ALL QUESTIONS IN D ETAIL, VERBALIZES UNDERSTANDING LUISITO THOMAS MD 01/15/2015 [facility] onversion Transactio n, Provider Unknown - 01/14/2015 11:16 PM PDT Nurse Progress Note by Giovanna Bejarano RN at 01/14/150 Author: Giovanna Bejarano RN Service: (none) Author Type: Registered Nurse Filed: 01/14/150 Date of Service: 08/25/15 2316 Status: Signed Manager Organizational: Giovanna Bejarano, RN (Registered Nurse) Called Dr. Riggins to clarify if heparin gtt should be continued after CT results. Order rec eived not to restart heparin drip at this time. elbert davila, Jazz Caceres RP - 01/14/2015 10:27 PM PDTFormatting of this note might be different from t he original. Progress Notes by Jazz Rahman RPH at 01/14/152226 Author: Jazz Rahman RPH Service: (none) Author Type: Pharmacist Filed: 01/14/152226 Date of Service: 01/14/152226 Status: Signed Manager Organizational: Jazz Rahman RPH (Pharmacist) Clinical Pharmacy Note - Renal Dose Adjustment Cole Ernst 69 y.o. female Ht Readings from Last 1 Encounters: 01/14/15 1.6 m (5' 3") Wt Readings from Last 1 Encounters: 01/14/15 89.6 kg (197 lb 8.5 oz) CREATININE Date Value Ref Range Status 01/14/2015 2.4* 0.50 - 1.00 mg/dL Final Comment: Testing performed at [facility];[address] [place] [address];[place] [address] CREATININE: 2.4 mg/dL ABNORMAL (01/14/15 1548) Estimated [...] Case Management by PHUONG Crump LICSW at 01/14/155 Author: PHUONG Crump, VINAY Service: (none) Author Type: Telegrapher Agent Filed: 01/14/151734 Date of Service: 01/14/151733 Status: Signed Manager Organizational: PHUONG Crump, C T TECH (Telegrapher Agent) 01/14/15 4620 Discharge Planning Evaluation Admitting Diagnosis Near syncope, elevated tropinin, non-stemi, CKD Readmission No Living Arrangements Alone Support Systems Family members;Friends/neighbors Type of Residence Private residence House type Apartment Bathrooms on 1st Floor 1-Full Independent with ADL's Yes Independent with Mobility No-comment Home Care Services No Mental Status Oriented Power of Superintendent Car Construction No;Other (comment) Resources Transportation issues No Prescription Plan Yes Name of Pharmacy [facility] in [place], [place] Previous home health equipment Yes Anticipated Disposition Facility Type Home Met with patient and discussed discharge planning, Pt is a 69 y.o., female who reports dru giron alone. Patient reports her sister, Annie Tipton, will transport her home a t discharge. Patient's PCP is: [facility] (General) Patient's insurance:b [employer] & Medicare Coverage concerns: Medication coverage/concerns[facility] Delivery: Community resources utilized / needed: TBD Assistance in transportation: Sister to transport Identification of any specific education / training:TBD Barriers to Discharge / Alternative housing needed: No Anticipated DCP: Home. Annie Pineda docume nted in this encounter Plan of Treatment +--------+---------+ + + + | Date | Type | Specialty | Care Team | Description | +--------+---------+ + + + | 10/24/ | Office | Cardiology | Yaquelin Alves DO | | | 2020 | Visit | | [address] | | | | | | [place] | | | | | | [address] | | | | | | | [...] | EXTERNAL LAB: [facility] | Routin | 01/17/2015 | | Results [...] preparation was | | | performed by [facility], [facility] | | | [place] [address] (Plant Floor Automation Manager: Martin | | | Zhang Galvan; [facility]#: [id number]). Diagnostician: Martin Potter | Pathologist Electronically Signed 01/21/2015 | | [...] | | | | | [place] [address] | | | | + + + [...] EXTERNAL | | | | performed at [facility], [address] | | LAB | | | | [address], | | | | | | [place] [address] | | | | + + + [...] | | | | | [place] [address] | | | | + + + [...] | | | | | [place] [address] | | | | + + + + + + | CO2 | 28Comment: Testing | 23 - 32 mmol/L | EXTERNAL | | | | performed at [facility], [address] | | LAB | | | | [address], | | | | | | [place] [address] | | | | + + + + + + | Anion Gap | 10Comment: Testing | 5 - 20 mmol/L | EXTERNAL | | | | performed at [facility], [address] | | LAB | | | | [address], | | | | | | [place] [address] | | | | + + + + + + | Glucose, | 107 (H)Comment: Testing | 65 - 99 mg/dL | EXTERNAL | | | Fasting | performed at [facility], [address] | | LAB | | | | [address], | | | | | | [place] [address] | | | | + + + + + + | BUN | 8Comment: Testing | 8 - 25 mg/dL | EXTERNAL | | | | performed at [facility], [address] | | LAB | | | | [address], | | | | | | [place] [address] | | | | + + + + + + | Creatinine | 0.96Comment: Testing | 0.50 - 1.00 | EXTERNAL | | | | performed at [facility], [address] | mg/dL | LAB | | | | [address], | | | | | | [place] [address] | | | | + + + + + + | BUN/Creatin | 8Comment: Testing | | EXTERNAL | | | ine Ratio | performed at [facility], [address] | | LAB | | | | [address], | | | | | | [place] [address] | | | | + + + + + + | Calcium | 8.6Comment: Testing | 8.5 - 10.5 | EXTERNAL | | | | performed at [facility], [address] | mg/dL | LAB | | | | [facility], | | | | | | [place] [address] | | | | + + + [...] | | | | | | at [facility], [address] | | | | | | [facility], | | | | | | [place] [address] | | | | + + + [...] + + + | COLE ERNST 1945 [place] MYOCARDIAL PERFUSION SPECT - STRESS | | [...] Hayden, Rad Conversion - 01/05/2019 4:32 AM ALTAGRACIA ERNST6NM MYOCARDIAL | | PERFUSION SPECT - STRESS [...] | | | + + External Lab: CBC (01/18/2015 3:25 AM PDT) + + + + + + | Component | Value | Ref Range | Performed | Pathologist | | | | | At | Signature | + + + + + + | WBC | 8.07Comment: Testing | 3.80 - 11.00 | EXTERNAL | | | | performed at [facility], [address] | K/uL | LAB | | | | [address], | | | | | | [place] [address] | | | | + + + + + + | Red Blood | 3.41 (L)Comment: Testing | 3.70 - 5.10 | EXTERNAL | | | Cells | performed at [facility], [address] | [address] | LAB | | | Counted | [address], | | | | | | [place] [address] | | | | + + + + + + | Hemoglobin | 11.9Comment: Testing | 11.3 - 15.5 | EXTERNAL | | | | performed at [facility], [address] | g/dL | LAB | | | | [address], | | | | | | [place] [address] | | | | + + + + + + | Hematocrit, | 35.7Comment: Testing | 34.0 - 46.0 % | EXTERNAL | | | POC | performed at [facility], [address] | | LAB | | | | [address], | | | | | | [place] [address] | | | | + + + + + + | MCV | 104.6 (H)Comment: | 80.0 - 100.0 fl | EXTERNAL | | | | Testing performed at | | LAB | | | | [facility], [address] | | | | | | [place] | | | | | | [address] | | | | + + + + + + | MCH | 34.9 (H)Comment: Testing | 27.0 - 34.0 pg | EXTERNAL | | | | performed at [facility], [address] | | LAB | | | | [address], | | | | | | [place] [address] | | | | + + + + + + | MCHC | 33.3Comment: Testing | 32.0 - 35.5 | EXTERNAL | | | | performed at [facility], [address] | g/dL | LAB | | | | [address], | | | | | | [place] [address] | | | | + + + + + + | RDW-CV | 50.8Comment: Testing | 37 - 53 fl | EXTERNAL | | | | performed at [facility], [address] | | LAB | | | | [address], | | | | | | [place] [address] | | | | + + + + + + | Platelet | 170Comment: SLIDE | 150 - 400 K/uL | EXTERNAL | | | Count | SCANNED, AGREES WITH | | LAB | | | Plasma | AUTOMATED | | | | | | RESULTS.Testing | | | | | | performed at [facility], [address] | | | | | [address], | | | | | | [place] [address] | | | | + + + + + + | MPV | 12.6Comment: Testing | fl | EXTERNAL | | | | performed at [facility], [address] | | LAB | | | | [address], | | | | | | [place] [address] | | | | + + + + + + | Differentia | AUTOMATEDComment: | | EXTERNAL | | | l Type | Testing performed at | | LAB | | | | [facility], [address] | | | | | | [place] | | | | | | [address] | | | | + + + + + + | % Segmented | 40.31Comment: Testing | % | EXTERNAL | | | | performed at [facility], [address] | | LAB | | | Neutrophils | [address], | | | | | | [place] [address] | | | | + + + + + + | % | 39.78Comment: Testing | % | EXTERNAL | | | Lymphocytes | performed at [facility], [address] | | LAB | | | | [address], | | | | | | [place] [address] | | | | + + + + + + | % Monocytes | 12.51Comment: Testing | % | EXTERNAL | | | | performed at [facility], [address] | | LAB | | | | [address], | | | | | | [place] [address] | | | | + + + + + + | % | 6.45Comment: Testing | % | EXTERNAL | | | Eosinophils | performed at [facility], [address] | | LAB | | | | [address], | | | | | | [place] [address] | | | | + + + + + + | % Basophils | 0.95Comment: Testing | % | EXTERNAL | | | | performed at [facility], [address] | | LAB | | | | [address], | | | | | | [place] [address] | | | | + + + + + + | Absolute | 3.26Comment: Testing | 1.90 - 7.40 | EXTERNAL | | | Segmented | performed at [facility], [address] | K/uL | LAB | | | Neutrophils | [address], | | | | | | [place] [address] | | | | + + + + + + | Absolute | 3.21Comment: Testing | 1.00 - 3.90 | EXTERNAL | | | Lymphocytes | performed at [facility], [address] | K/uL | LAB | | | | [address], | | | | | | [place] [address] | | | | + + + + + + | Absolute | 1.01 (H)Comment: Testing | 0.00 - 0.80 | EXTERNAL | | | Monocytes | performed at [facility], [address] | K/uL | LAB | | | | [address], | | | | | | [place] [address] | | | | + + + + + + | Absolute | 0.52 (H)Comment: Testing | 0.00 - 0.50 | EXTERNAL | | | Eosinophils | performed at [facility], [address] | K[address]L | LAB | | | | [address], | | | | | | [place] [address] | | | | + + + + + + | Absolute | 0.08Comment: Testing | 0.00 - 0.10 | EXTERNAL | | | Basophils | performed at [facility], [address] | K/uL | LAB | | | | [address], | | | | | | [place] [address] | | | | + + + + + + | RBC | RBC AND PLT MORPHOLOGY | | EXTERNAL | | | Morphology | APPEAR NORMALComment: | | LAB | | | | Testing performed at | | | | | | [facility], [address] | | | | | | [place] | | | | | | [address] | | | | + + + [...] EXTERNAL | | | | performed at [facility], [address] | | LAB | | | | [address], | | | | | | [place] [address] | | | | + + + [...] EXTERNAL | | | | performed at [facility], [address] | | LAB | | | | [address], | | | | | | [place] [address] | | | | + + + [...] | | | | | [place] [address] | | | | + + + + + + | K | 3.8Comment: Testing | 3.5 - 4.9 | EXTERNAL | | | | performed at [facility], [address] | mmol/L | LAB | | | | [address], | | | | | | [place] [address] | | | | + + + + + + | Cl | 101Comment: Testing | 99 - 109 mmol/L | EXTERNAL | | | | performed at [facility], [address] | | LAB | | | | [address], | | | | | | [place] [address] | | | | + + + + + + | CO2 | 27Comment: Testing | 23 - 32 mmol/L | EXTERNAL | | | | performed at [facility], [address] | | LAB | | | | [address], | | | | | | [place] [address] | | | | + + + + + + | Anion Gap | 12Comment: Testing | 5 - 20 mmol/L | EXTERNAL | | | | performed at [facility], [address] | | LAB | | | [address], | | | | | | [place] [address] | | | | + + + + + + | Glucose, | 118 (H)Comment: Testing | 65 - 99 mg/dL | EXTERNAL | | | Fasting | performed at [facility], [address] | | LAB | | | | [address], | | | | | | [place] [address] | | | | + + + + + + | BUN | 7 (L)Comment: Testing | 8 - 25 mg/dL | EXTERNAL | | | | performed at [facility], [address] | | LAB | | | | [address], | | | | | | [place] [address] | | | | + + + + + + | Creatinine | 0.79Comment: Testing | 0.50 - 1.00 | EXTERNAL | | | | performed at [facility], [address] | mg/dL | LAB | | | | [address], | | | | | | [place] [address] | | | | + + + + + + | BUN/Creatin | 9Comment: Testing | | EXTERNAL | | | ine Ratio | performed at [facility], [address] | | LAB | | | | [address], | | | | | | [place] [address] | | | | + + + + + + | Calcium | 7.5 (L)Comment: Testing | 8.5 - 10.5 | EXTERNAL | | | | performed at [facility], [address] | mg/dL | LAB | | | | [address], | | | | | | [place] [address] | | | | + + + + + + | Protein, | 7.2Comment: Testing | 6.3 - 8.2 g/dL | EXTERNAL | | | Total | performed at [facility], [address] | | LAB | | | | [address], | | | | | | [place] [address] | | | | + + + + + + | Albumin | 3.1 (L)Comment: Testing | 3.3 - 4.8 g/dL | EXTERNAL | | | | performed at [facility], [address] | | LAB | | | | [address], | | | | | | [place] [address] | | | | + + + + + + | Globulin | 4.1Comment: Testing | 1.3 - 4.9 g/dL | EXTERNAL | | | | performed at [facility], [address] | | LAB | | | | [address], | | | | | | [place] [address] | | | | + + + + + + | A/G Ratio | 0.8 (L)Comment: Testing | 1.0 - 2.4 | EXTERNAL | | | | performed at [facility], [address] | | LAB | | | [address], | | | | | | [place] [address] | | | | + + + + + + | Bilirubin | 0.5Comment: Testing | 0.1 - 1.5 mg/dL | EXTERNAL | | | Total | performed at [facility], [address] | | LAB | | | | [address], | | | | | | [place] [address] | | | | + + + + + + | ALP, | 76Comment: Testing | 35 - 115 U/L | EXTERNAL | | | External | performed at [facility], [address] | | LAB | | | [address], | | | | | | [place] [address] | | | | + + + + + + | AST | 43Comment: Testing | 10 - 45 U/L | EXTERNAL | | | | performed at [facility], [address] | | LAB | | | | [address], | | | | | | [place] [address] | | | | + + + + + + | ALT | 25Comment: Testing | 10 - 65 U/L | EXTERNAL | | | | performed at [facility], [address] | | LAB | | | | [facility], | | | | | | [place] [address] | | | | + + + [...] | | | | | | [facility], | | | | | | [place] [address] | | | | + + + [...] EXTERNAL | | | | performed at [facility];[address] | mmol/L | LAB | | | | [address];[place], [place] | | | | | | [address] | | | | + + + [...] EXTERNAL | | | | performed at [facility];[address] | | LAB | | | | [address];[place], [place] | | | | | | [address] | | | | + + + [...] EXTERNAL | | | | performed at [facility] | | LAB | | | | [address];[place], [place] | | | | | | [address] | | | | + + + [...] EXTERNAL | | | | performed at [facility];[address] | mmol/L | LAB | | | | [facility];[place], [place] | | | | | | [address] | | | | + + + [...] EXTERNAL | | | | performed at [facility] | | LAB | | | | [address];[place], [place] | | | | | | [address] | | | | + + + [...] EXTERNAL | | | | performed at [facility];[address] | | LAB | | | | [address];[place], [place] | | | | | | [address] | | | | + + + [...] + +---------+ + + External Lab: [facility] (01/17/2015 3:53 AM PDT) + + + + + + | Component | Value | Ref Range | Performed | Pathologist | | | | | At | Signature | + + + + + + | WBC | 10.74Comment: Testing | 3.80 - 11.00 | EXTERNAL | | | | performed at [facility], [address] | K/uL | LAB | | | | [address], | | | | | | [place] [address] | | | | + + + + + + | Red Blood | 3.40 (L)Comment: Testing | 3.70 - 5.10 | EXTERNAL | | | Cells | performed at [facility], [address] | M/uL | LAB | | | Counted | [address], | | | | | | [place] [address] | | | | + + + + + + | Hemoglobin | 12.0Comment: Testing | 11.3 - 15.5 | EXTERNAL | | | | performed at [facility], [address] | g/dL | LAB | | | | [address], | | | | | | [place] [address] | | | | + + + + + + | Hematocrit, | 35.8Comment: Testing | 34.0 - 46.0 % | EXTERNAL | | | POC | performed at [facility], [address] | | LAB | | | | [address], | | | | | | [place] [address] | | | | + + + + + + | MCV | 105.3 (H)Comment: | 80.0 - 100.0 fl | EXTERNAL | | | | Testing performed at | | LAB | | | | [facility], [address] | | | | | | [place] | | | | | | [address] | | | | + + + + + + | MCH | 35.3 (H)Comment: Testing | 27.0 - 34.0 pg | EXTERNAL | | | | performed at [facility], [address] | | LAB | | | | [address], | | | | | | [place] [address] | | | | + + + + + + | MCHC | 33.6Comment: Testing | 32.0 - 35.5 | EXTERNAL | | | | performed at [facility], [address] | g/dL | LAB | | | | [address], | | | | | | [place] [address] | | | | + + + + + + | RDW-CV | 50.8Comment: Testing | 37 - 53 fl | EXTERNAL | | | | performed at [facility], [address] | | LAB | | | | [address], | | | | | | [place] [address] | | | | + + + + + + | Platelet | 149 (L)Comment: Testing | 150 - 400 K/uL | EXTERNAL | | | Count | performed at [facility], [address] | | LAB | | | Plasma | [address], | | | | | | [place] [address] | | | | + + + + + + | MPV | 13.0Comment: Testing | fl | EXTERNAL | | | | performed at [facility], [address] | | LAB | | | | [address], | | | | | | [place] [address] | | | | + + + + + + | Differentia | AUTOMATEDComment: | | EXTERNAL | | | l Type | Testing performed at | | LAB | | | | [facility], [address] | | | | | | [place] | | | | | | [address] | | | | + + + + + + | % Segmented | 52.08Comment: Testing | % | EXTERNAL | | | | performed at [facility], [address] | | LAB | | | Neutrophils | [address], | | | | | | [place] [address] | | | | + + + + + + | % | 32.37Comment: Testing | % | EXTERNAL | | | Lymphocytes | performed at [facility], [address] | | LAB | | | | [address], | | | | | | [place] [address] | | | | + + + + + + | % Monocytes | 10.07Comment: Testing | % | EXTERNAL | | | | performed at [facility], [address] | | LAB | | | [address], | | | | | | [place] [address] | | | | + + + + + + | % | 4.41Comment: Testing | % | EXTERNAL | | | Eosinophils | performed at [facility], [address] | | LAB | | | | [address], | | | | | | [place] [address] | | | | + + + + + + | % Basophils | 1.07Comment: Testing | % | EXTERNAL | | | | performed at [facility], [address] | | LAB | | | | [address], | | | | | | [place] [address] | | | | + + + + + + | Absolute | 5.59Comment: Testing | 1.90 - 7.40 | EXTERNAL | | | Segmented | performed at [facility], [address] | K/uL | LAB | | | Neutrophils | [address], | | | | | | [place] [address] | | | | + + + + + + | Absolute | 3.48Comment: Testing | 1.00 - 3.90 | EXTERNAL | | | Lymphocytes | performed at [facility], [address] | K/uL | LAB | | | | [address], | | | | | | [place] [address] | | | | + + + + + + | Absolute | 1.08 (H)Comment: Testing | 0.00 - 0.80 | EXTERNAL | | | Monocytes | performed at [facility], [address] | K/uL | LAB | | | | [address], | | | | | | [place] [address] | | | | + + + + + + | Absolute | 0.47Comment: Testing | 0.00 - 0.50 | EXTERNAL | | | Eosinophils | performed at [facility], [address] | K/uL | LAB | | | | [address], | | | | | | [place] [address] | | | | + + + + + + | Absolute | 0.12 (H)Comment: Testing | 0.00 - 0.10 | EXTERNAL | | | Basophils | performed at [facility], [address] | K/uL | LAB | | | | [address], | | | | | | [place] [address] | | | | + + + + + + | RBC | NORMAL RBC MORPHComment: | | EXTERNAL | | | Morphology | Testing performed at | | LAB | | | | [facility], [address] | | | | | | [place] | | | | | | [address] | | | | + + + + + + | Differentia | 1+ GIANT PLTComment: | | EXTERNAL | | | l Comments | Testing performed at | | LAB | | | | [facility], [address] | | | | | | [place] | | | | | | [address] | | | | + + + [...] | | | | | [place] [address] | | | | + + + + + + | K | 3.2 (L)Comment: Testing | 3.5 - 4.9 | EXTERNAL | | | | performed at [facility], [address] | mmol/L | LAB | | | | [address], | | | | | | [place] [address] | | | | + + + + + + | Cl | 100Comment: Testing | 99 - 109 mmol/L | EXTERNAL | | | | performed at [facility], [address] | | LAB | | | | [address], | | | | | | [place] [address] | | | | + + + + + + | CO2 | 28Comment: Testing | 23 - 32 mmol/L | EXTERNAL | | | | performed at [facility], [address] | | LAB | | | | [address], | | | | | | [place] [address] | | | | + + + + + + | Anion Gap | 13Comment: Testing | 5 - 20 mmol/L | EXTERNAL | | | | performed at [facility], [address] | | LAB | | | | [address], | | | | | | [place] [address] | | | | + + + + + + | Glucose, | 114 (H)Comment: Testing | 65 - 99 mg/dL | EXTERNAL | | | Fasting | performed at [facility], [address] | | LAB | | | | [address], | | | | | | [place] [address] | | | | + + + + + + | BUN | 8Comment: Testing | 8 - 25 mg/dL | EXTERNAL | | | | performed at [facility], [address] | | LAB | | | | [address], | | | | | | [place] [address] | | | | + + + + + + | Creatinine | 0.94Comment: Testing | 0.50 - 1.00 | EXTERNAL | | | | performed at [facility], [address] | mg/dL | LAB | | | | [address], | | | | | | [place] [address] | | | | + + + + + + | BUN/Creatin | 9Comment: Testing | | EXTERNAL | | | ine Ratio | performed at [facility], [address] | | LAB | | | | [address], | | | | | | [place] [id number] | | | | + + + + + + | Calcium | 7.8 (L)Comment: Testing | 8.5 - 10.5 | EXTERNAL | | | | performed at [facility], [address] | mg/dL | LAB | | | | [address], | | | | | | [place] [address] | | | | + + + + + + | Protein, | 7.8Comment: Testing | 6.3 - 8.2 g/dL | EXTERNAL | | | Total | performed at [facility], [address] | | LAB | | | | [address], | | | | | | [place] [id number] | | | | + + + + + + | Albumin | 3.3Comment: Testing | 3.3 - 4.8 g/dL | EXTERNAL | | | | performed at [facility], [address] | | LAB | | | | [address], | | | | | | [place] [address] | | | | + + + + + + | Globulin | 4.5Comment: Testing | 1.3 - 4.9 g/dL | EXTERNAL | | | | performed at [facility], [address] | | LAB | | | | [address], | | | | | | [place] [address] | | | | + + + + + + | A/G Ratio | 0.7 (L)Comment: Testing | 1.0 - 2.4 | EXTERNAL | | | | performed at [facility], [address] | | LAB | | | | [address], | | | | | | [place] [address] | | | | + + + + + + | Bilirubin | 0.4Comment: Testing | 0.1 - 1.5 mg/dL | EXTERNAL | | | Total | performed at [facility], [address] | | LAB | | | | [address], | | | | | | [place] [address] | | | | + + + + + + | ALP, | 83Comment: Testing | 35 - 115 U/L | EXTERNAL | | | External | performed at [facility], [address] | | LAB | | | | [address], | | | | | | [place] [address] | | | | + + + + + + | AST | 34Comment: Testing | 10 - 45 U/L | EXTERNAL | | | | performed at [facility], [address] | | LAB | | | | [address], | | | | | | [place] [address] | | | | + + + + + + | ALT | 24Comment: Testing | 10 - 65 U/L | EXTERNAL | | | | performed at [facility], [address] | | LAB | | | | [address], | | | | | | [place] [address] | | | | + + + [...] W | | | | | | Janna Aly, | | | | | | [place] [address] | | | | + + + [...] LAB | | | | performed at [facility];[address] | | | | | | [address];[place], [place] | | | | | | [address] | | | | + + + [...] LAB | | | | performed at [facility] | | | | | | [address];[place], [place] | | | | | | [address] | | | | + + + [...] EXTERNAL | | | | performed at [facility];888 | mmol/L | LAB | | | | [address];[place], [place] | | | | | | [address] | | | | + + + [...] EXTERNAL | | | | performed at [facility] | | LAB | | | | [address];[place], [place] | | | | | | [address] | | | | + + + [...] TESTING. | | | Testing performed at [facility], [address] | | | [place] [address] | | + + + + +---------+ [...] | Testing performed at | | | [facility], [address] [place] [address] | | + + + + +---------+ [...] NONE SEEN to 1+ Testing performed at [address] | | | [place] [address] | | + + + + +---------+ [...] antigen detected by ICA Testing performed at [facility], [address] | | | [place] [address] | | + + + + +---------+ [...] at | | | | | | [facility], [address] | | | | | | [facility] | | | | | | [address] | | | | + + + [...] | | | | | performed at [facility], [address] | | | | | | [facility] | | | | | | [place] [address] | | | | + + + + + + + + | Specimen | + + | | + + + +---------+ + + | Performing | Address | City/State/Zipcode | Phone Number | | Organization | | | | + +---------+ + + | EXTERNAL LAB | | | | + +---------+ + + Cytomegalovirus, [place], Quant (01/16/2015 9:10 AM PDT) + + + + + + | Component | Value | Ref Range | Performed | Pathologist | | | | | At | Signature | + + + + + + | Source | PLASMAComment: Testing | | EXTERNAL | | | | performed at [facility];[address] | | LAB | | | | [address];[place] | | | | | | [address] | | | | + + + + + + | CMV DNA | NOT DETECTEDComment: | | EXTERNAL | | | QUANTITATIV | Unit: IU/MLTesting | | LAB | | | E INTERP | performed at [facility], [address] | | | | | | [place] | | | | | | [place] [address] | | | | + + + + + + | CMV DNA, | NOT DETECTEDComment: | | EXTERNAL | | | Qual PCR | Unit: COPIES/MLTesting | | LAB | | | | [facility] at [facility], [address] | | | | | | [place] | | | | | | [place] [address] | | | | + + + [...] | | | | | | DETERMINEDBY [facility] | | | | | | [facility] [...] | | | | | | DECISIONS. [facility] | | | | | | IS [...] | | | | | | at [facility], [address] | | | | | | [place] | | | | | | [address] | | | | + + + [...] EXTERNAL | | | | performed at [facility], [address] | K/uL | LAB | | | | [address], | | | | | | [place] [address] | | | | + + + + + + | Red Blood | 3.28 (L)Comment: Testing | 3.70 - 5.10 | EXTERNAL | | | Cells | performed at [facility], [address] | M/uL | LAB | | | Counted | [address], | | | | | | [place] [address] | | | | + + + + + + | Hemoglobin | 11.6Comment: Testing | 11.3 - 15.5 | EXTERNAL | | | | performed at [facility], [address] | g/dL | LAB | | | | [address], | | | | | | [place] [address] | | | | + + + + + + | Hematocrit, | 34.5Comment: Testing | 34.0 - 46.0 % | EXTERNAL | | | POC | performed at [facility], [address] | | LAB | | | | [address], | | | | | | [place] [address] | | | | + + + + + + | MCV | 105.1 (H)Comment: | 80.0 - 100.0 fl | EXTERNAL | | | | Testing performed at | | LAB | | | | [facility], [address] [facility] | | | | | | [place] | | | | | | [address] | | | | + + + + + + | MCH | 35.3 (H)Comment: Testing | 27.0 - 34.0 pg | EXTERNAL | | | | performed at [facility], [address] | | LAB | | | | [address], | | | | | | [place] [address] | | | | + + + + + + | MCHC | 33.5Comment: Testing | 32.0 - 35.5 | EXTERNAL | | | | performed at [facility], [address] | g/dL | LAB | | | | [address], | | | | | | [place] [address] | | | | + + + + + + | RDW-CV | 50.8Comment: Testing | 37 - 53 fl | EXTERNAL | | | | performed at [facility], [address] | | LAB | | | | [address], | | | | | | [place] [address] | | | | + + + + + + | Platelet | 144 (L)Comment: Testing | 150 - 400 K/uL | EXTERNAL | | | Count | performed at [facility], [address] | | LAB | | | Plasma | [address], | | | | | | [place] [address] | | | | + + + + + + | MPV | 13.0Comment: Testing | fl | EXTERNAL | | | | performed at [facility], [address] | | LAB | | | | [address], | | | | | | [place] [address] | | | | + + + + + + | Differentia | AUTOMATEDComment: | | EXTERNAL | | | l Type | Testing performed at | | LAB | | | | [facility], [address] | | | | | | [place] | | | | | | [address] | | | | + + + + + + | % Segmented | 37.99Comment: Testing | % | EXTERNAL | | | | performed at [facility], [address] | | LAB | | | Neutrophils | [address], | | | | | | [place] [address] | | | | + + + + + + | % | 43.49Comment: Testing | % | EXTERNAL | | | Lymphocytes | performed at [facility], [address] | | LAB | | | | [address], | | | | | | [place] [address] | | | | + + + + + + | % Monocytes | 11.24Comment: Testing | % | EXTERNAL | | | | performed at [facility], [address] | | LAB | | | | [address], | | | | | | [place] [address] | | | | + + + + + + | % | 5.97Comment: Testing | % | EXTERNAL | | | Eosinophils | performed at [facility], [address] | | LAB | | | | [address], | | | | | | [place] [address] | | | | + + + + + + | % Basophils | 1.31Comment: Testing | % | EXTERNAL | | | | performed at [facility], [address] | | LAB | | | | [address], | | | | | | [place] [address] | | | | + + + + + + | Absolute | 4.01Comment: Testing | 1.90 - 7.40 | EXTERNAL | | | Segmented | performed at [facility], [address] | K/uL | LAB | | | Neutrophils | [address], | | | | | | [place] [address] | | | | + + + + + + | Absolute | 4.59 (H)Comment: Testing | 1.00 - 3.90 | EXTERNAL | | | Lymphocytes | performed at [facility], [address] | K/uL | LAB | | | | [address], | | | | | | [place] [address] | | | | + + + + + + | Absolute | 1.19 (H)Comment: Testing | 0.00 - 0.80 | EXTERNAL | | | Monocytes | performed at [facility], [address] | K/uL | LAB | | | | [address], | | | | | | [place] [address] | | | | + + + + + + | Absolute | 0.63 (H)Comment: Testing | 0.00 - 0.50 | EXTERNAL | | | Eosinophils | performed at [facility], [address] | K/uL | LAB | | | | [address], | | | | | | [place] [address] | | | | + + + + + + | Absolute | 0.14 (H)Comment: Testing | 0.00 - 0.10 | EXTERNAL | | | Basophils | performed at [facility], [address] | K/uL | LAB | | [...] [place] | | | | | | [address] | | | | + + + + + + | Differentia | 2+ GIANT PLTComment: | | EXTERNAL | | | l Comments | Testing performed at | | LAB | | | | [facility], [address] | | | | | | [place] | | | | | | [address] | | | | + + + [...] [address] | | | | | | [place] | | | | | | [address] | | | | + + + + + + + + | Specimen | + + | Blood specimen | | (specimen) | + + + +---------+ + + | Performing | Address | City/State/Zipcode | Phone Number | | Organization | | | | + +---------+ + + | EXTERNAL LAB | | | | + +---------+ + + T4 Free (01/16/2015 3:21 AM PDT) + + + + + + | Component | Value | Ref Range | Performed | Pathologist | | | | | At | Signature | + + + + + + | FREE T4 | 0.9Comment: Testing | 0.7 - 1.5 ng/dL | EXTERNAL | | | (REF) | performed at [facility], [address] | | LAB | | | | [address], | | | | | | [place] [address] | | | | + + + [...] EXTERNAL | | | | performed at [facility], [address] | | LAB | | | | [address], | | | | | | [place] [address] | | | | + + + [...] | | | | | [place] [address] | | | | + + + [...] | | | | | [place] [address] | | | | + + + + + + | K | 3.0 (L)Comment: Testing | 3.5 - 4.9 | EXTERNAL | | | | performed at [facility], [address] | mmol/L | LAB | | | | [address], | | | | | | [place] [address] | | | | + + + + + + | Cl | 104Comment: Testing | 99 - 109 mmol/L | EXTERNAL | | | | performed at [facility], [address] | | LAB | | | | [address], | | | | | | [place] [address] | | | | + + + + + + | CO2 | 22 (L)Comment: Testing | 23 - 32 mmol/L | EXTERNAL | | | | performed at [facility], [address] | | LAB | | | | [address], | | | | | | [place] [address] | | | | + + + + + + | Anion Gap | 15Comment: Testing | 5 - 20 mmol/L | EXTERNAL | | | | performed at [facility], [address] | | LAB | | | | [address], | | | | | | [place] [address] | | | | + + + + + + | Glucose, | 82Comment: Testing | 65 - 99 mg/dL | EXTERNAL | | | Fasting | performed at [facility], [address] | | LAB | | | | [address], | | | | | | [place] [address] | | | | + + + + + + | BUN | 13Comment: Testing | 8 - 25 mg/dL | EXTERNAL | | | | performed at [facility], [address] | | LAB | | | | [address], | | | | | | [place] [address] | | | | + + + + + + | Creatinine | 1.01 (H)Comment: Testing | 0.50 - 1.00 | EXTERNAL | | | | performed at [facility], [address] | mg/dL | LAB | | | | [address], | | | | | | [place] [address] | | | | + + + + + + | BUN/Creatin | 13Comment: Testing | | EXTERNAL | | | ine Ratio | performed at [facility], [address] | | LAB | | | | [address], | | | | | | [place] [address] | | | | + + + + + + | Calcium | 7.7 (L)Comment: Testing | 8.5 - 10.5 | EXTERNAL | | | | performed at [facility], [address] | mg/dL | LAB | | | | [address], | | | | | | [place] [address] | | | | + + + + + + | Protein, | 7.1Comment: Testing | 6.3 - 8.2 g/dL | EXTERNAL | | | Total | performed at [facility], [address] | | LAB | | | | [address], | | | | | | [place] [address] | | | | + + + + + + | Albumin | 3.2 (L)Comment: Testing | 3.3 - 4.8 g/dL | EXTERNAL | | | | performed at [facility], [address] | | LAB | | | | [address], | | | | | | [place] [address] | | | | + + + + + + | Globulin | 3.9Comment: Testing | 1.3 - 4.9 g/dL | EXTERNAL | | | | performed at [facility], [address] | | LAB | | | | [address], | | | | | | [place] [address] | | | | + + + + + + | A/G Ratio | 0.8 (L)Comment: Testing | 1.0 - 2.4 | EXTERNAL | | | | performed at [facility], [address] | | LAB | | | | [address], | | | | | | [place] [address] | | | | + + + + + + | Bilirubin | 0.4Comment: Testing | 0.1 - 1.5 mg/dL | EXTERNAL | | | Total | performed at [facility], [address] | | LAB | | | | [address], | | | | | | [place] [address] | | | | + + + + + + | ALP, | 76Comment: Testing | 35 - 115 U/L | EXTERNAL | | | External | performed at [facility], [address] | | LAB | | | | [address], | | | | | | [place] [address] | | | | + + + + + + | AST | 26Comment: Testing | 10 - 45 U/L | EXTERNAL | | | | performed at [facility], [address] | | LAB | | | [address], | | | | | | [place] [address] | | | | + + + + + + | ALT | 19Comment: Testing | 10 - 65 U/L | EXTERNAL | | | | performed at [facility], [address] | | LAB | | | | [address], | | | | | | [place] [address] | | | | + + + [...] | | | | | [place] [address] | | | | + + + [...] + + + + | Eosinophils | NO EOSINOPHILS | % | EXTERNAL | | | , Urine | SEENComment: Testing | | LAB | | | | performed at [facility], [address] | | | | | | [place] [address], | | | | | | [place] [address] | | | | + + + [...] | | | Urine | performed at [facility], [address] | | LAB | | | Random | [address], | | | | | | [place] [address] | | | | + + + [...] | Testing performed | | | at [facility], [address] [place] [address] | | + + + + +---------+ [...] LA/Ao: 1.57 D-E Excursion: 2.11 cm E-F Woods: 0.09 m/s | | | EPSS: 0.48 [...] TV A Billy: 0.66 m/s TV Dec Woods: 4.36 m/s2 TV Dec | | | Time: 184.41 ms TV E Billy: 0.80 m/s TV E/A Ratio: 1.21 | | | Electrical Design Technician: NEDRA Authenticated by: Gil Coronel MD Report | | | Date/Time: 01-15-2015 09:12:05 | | + + + + ---+ | Procedure Note | + ---+ | Manuel Blake Conversion - 01/05/2019 4:32 AM PDT Patient Name: Gwyn ERNST of | | : 1945 Performing Physician: Gil Coronel | | ------REPORT | | ADDENDED------INDICATIONS abnormal ekg CONCLUSIONS [...] | Index (A-L): 40.51 ml/m2LAAs A2C: 24.56 [id number] A-L A2C: 76.32 mlLAESV MOD A2C: | | 73.52 mlLALs A2C: 6.71 cmLAAs A4C: 24.96 [id number] A-L A4C: 79.86 mlLAESV MOD A4C: | | 77.20 mlLALs A4C: 6.62 cmAo Diam: 2.73 cmAV Cusp: 2.27 cmLA Diam: 4.29 | | cmLA/Ao: 1.57D-E Excursion: 2.11 cmE-F Woods: 0.09 m/sEPSS: 0.48 cmHR: 77.41 | | BPMAV maxP.05 mmHgAV meanP.21 mmHgAV Vmax: 1.73 m/Sorin Vmean: 1.25 m/Sorin | | VTI: 34.68 cmAVA Vmax: 2.07 cm2AVA (VTI): 1.85 [id number] Dopp: 2.60 l/[id number] | | Dopp: 5.05 l/minHR: 78.81 BPMLVOT [...] | m/sTV A Billy: 0.66 m/sTV Dec Woods: 4.36 m/s2TV Dec Time: 184.41 msTV E Billy: 0.80 | | m/sTV E/A Ratio: 1.21 Electrical Design Technician: Amberhenticated by: Gil Lott | | Date/Time: 01-15-2015 09:12:05 IMPRESSION: 1. [...] | |D-E Excursion: 2.11 cm | |E-F Woods: 0.09 m/s | |EPSS: 0.48 cm | |HR: 77.41 BPM | |AV maxP.05 mmHg | |AV meanP.21 mmHg | |AV Vmax: 1.73 m/s | |AV Vmean: 1.25 m/s | |AV VTI: 34.68 cm | |BARYON Vmax: 2.07 cm2 | |BAYRON (VTI): 1.85 [...] A Billy: 0.66 m/s | |TV Dec Woods: 4.36 m/s2 | |TV Dec Time: 184.41 ms | |TV E Billy: 0.80 m/s | |TV E/A Ratio: 1.21 | | | |Electrical Design Technician: GD | |Authenticated by: Gil Coronel MD | [...] | EXTERNAL LAB | | performed at [facility];[address] [place] [address];[place] [address] 027 NAP1 BI | | | 027 NAP1 BI PRESUMPTIVE NEGATIVE | | | Detection of 027 NAP1 BI strains of C. difficile is presumptive and | | | for epidemiological purposes and not intended to guide or monitor | | | treatment for C. difficile infections. Testing performed at [facility] | | | [facility];[place] [address] | | + + + + +---------+ [...] | | | | | | [place] [address] | | | | + + + + + + | Complement | 19.4Comment: Testing | 10 - 40 mg/dL | EXTERNAL | | | Comp 4 | performed at [facility], [address] | | LAB | | | | [address], | | | | | | [place] [address] | | | | + + + [...] | | | | | | ACUTE DE Testing | | | | | | performed at [facility];[address] | | | | | | [facility];[place], [place] | | | | | | [address] | | | | + + + [...] + +---------+ + + External Lab: CBC (01/15/2015 6:32 AM PDT) + + + + + + | Component | Value | Ref Range | Performed | Pathologist | | | | | At | Signature | + + + + + + | WBC | 13.11 (H)Comment: | 3.80 - 11.00 | EXTERNAL | | | | Testing performed at | K/uL | LAB | | | | [facility];[address];[place] [address] | | | | + + + + + + | Red Blood | 3.27 (L)Comment: Testing | 3.70 - 5.10 | EXTERNAL | | | Cells | performed at [facility];[address] | M/uL | LAB | | | Counted | [address];[place] | | | | | | [address] | | | | + + + + + + | Hemoglobin | 11.2 (L)Comment: Testing | 11.3 - 15.5 | EXTERNAL | | | | performed at [facility];[address] | g/dL | LAB | | | | [address];[place] | | | | | | [address] | | | | + + + + + + | Hematocrit, | 34.4Comment: Testing | 34.0 - 46.0 % | EXTERNAL | | | POC | performed at [facility];[address] | | LAB | | | | [address];[place] | | | | | | [address] | | | | + + + + + + | MCV | 105.2 (H)Comment: | 80.0 - 100.0 fl | EXTERNAL | | | | Testing performed at | | LAB | | | | [facility];[address];[place] [address] | | | | + + + + + + | MCH | 34.2 (H)Comment: Testing | 27.0 - 34.0 pg | EXTERNAL | | | | performed at [facility];[address] | | LAB | | | | [address];[place] | | | | | | [address] | | | | + + + + + + | MCHC | 32.5Comment: Testing | 32.0 - 35.5 | EXTERNAL | | | | performed at [facility];[address] | g/dL | LAB | | | | [address];[place] | | | | | | [address] | | | | + + + + + + | RDW-CV | 50.3Comment: Testing | 37 - 53 fl | EXTERNAL | | | | performed at [facility];[address] | | LAB | | | | [address];[place] | | | | | | [address] | | | | + + + + + + | Platelet | 160Comment: Testing | 150 - 400 K/uL | EXTERNAL | | | Count | performed at [facility];[address] | | LAB | | | Plasma | [address];[place] | | | | | | [address] | | | | + + + + + + | MPV | 11.1Comment: Testing | fl | EXTERNAL | | | | performed at [facility];[address] | | LAB | | | | [address];[place] | | | | | | [address] | | | | + + + + + + | Differentia | AUTOMATEDComment: | | EXTERNAL | | | l Type | Testing performed at | | LAB | | | | [facility];[address];[place] [address] | | | | + + + + + + | % Segmented | 50.65Comment: Testing | % | EXTERNAL | | | | performed at [facility];[address] | | LAB | | | Neutrophils | [address];[place] | | | | | | [address] | | | | + + + + + + | % | 37.06Comment: Testing | % | EXTERNAL | | | Lymphocytes | performed at [facility];[address] | | LAB | | | | [address];[place] | | | | | | [address] | | | | + + + + + + | % Monocytes | 9.60Comment: Testing | % | EXTERNAL | | | | performed at [facility];[address] | | LAB | | | | [address];[place] | | | | | | [address] | | | | + + + + + + | % | 1.30Comment: Testing | % | EXTERNAL | | | Eosinophils | performed at [facility];[address] | | LAB | | | | [address];[place] | | | | | | [address] | | | | + + + + + + | % Basophils | 1.39Comment: Testing | % | EXTERNAL | | | | performed at [facility];[address] | | LAB | | | | [address];[place] | | | | | | [address] | | | | + + + + + + | Absolute | 6.64Comment: Testing | 1.90 - 7.40 | EXTERNAL | | | Segmented | performed at [facility];[address] | K/uL | LAB | | | Neutrophils | [address];[place] | | | | | | [address] | | | | + + + + + + | Absolute | 4.86 (H)Comment: Testing | 1.00 - 3.90 | EXTERNAL | | | Lymphocytes | performed at [facility];[address] | K/uL | LAB | | | | [address];[place] | | | | | | [address] | | | | + + + + + + | Absolute | 1.26 (H)Comment: Testing | 0.00 - 0.80 | EXTERNAL | | | Monocytes | performed at [facility];[address] | K/uL | LAB | | | | [address];[place] | | | | | | [address] | | | | + + + + + + | Absolute | 0.17Comment: Testing | 0.00 - 0.50 | EXTERNAL | | | Eosinophils | performed at [facility];[address] | K/uL | LAB | | | | [address];[place] | | | | | | [address] | | | | + + + + + + | Absolute | 0.18 (H)Comment: Testing | 0.00 - 0.10 | EXTERNAL | | | Basophils | performed at [facility];[address] | K/uL | LAB | | | | [address];[place] | | | | | | [address] | | | | + + + [...] EXTERNAL | | | | performed at [facility];[address] | | LAB | | | | [address];[place] | | | | | | [address] | | | | + + + [...] LAB | | | | performed at [facility] | | | | | | [facility];[place], [place] | | | | | | [address] | | | | + + + [...] EXTERNAL | | | | performed at [facility];888 | mmol/L | LAB | | | | [address];[place] | | | | | | [address] | | | | + + + + + + | K | 3.7Comment: SLT | 3.5 - 4.9 | EXTERNAL | | | | HEMOLYSISTesting | mmol/L | LAB | | | | performed at [facility];[address] | | | | | | [address];[place] | | | | | | [address] | | | | + + + + + + | Cl | 110 (H)Comment: Testing | 99 - 109 mmol/L | EXTERNAL | | | | performed at [facility];[address] | | LAB | | | | [address];[place] | | | | | | [address] | | | | + + + + + + | CO2 | 24Comment: Testing | 23 - 32 mmol/L | EXTERNAL | | | | performed at [facility];[address] | | LAB | | | | [address];[place] | | | | | | [address] | | | | + + + + + + | Anion Gap | 13Comment: Testing | 5 - 20 mmol/L | EXTERNAL | | | | performed at [facility];[address] | | LAB | | | | [address];[place] | | | | | | [address] | | | | + + + + + + | Glucose, | 109 (H)Comment: Testing | 65 - 99 mg/dL | EXTERNAL | | | Fasting | performed at [facility];[address] | | LAB | | | | [address];[place] | | | | | | [address] | | | | + + + + + + | BUN | 24Comment: Testing | 8 - 25 mg/dL | EXTERNAL | | | | performed at [facility] [place];[address] | | LAB | | | | [address];[place] | | | | | | [address] | | | | + + + + + + | Creatinine | 1.7 (H)Comment: Testing | 0.50 - 1.00 | EXTERNAL | | | | performed at [facility] [place];888 | mg/dL | LAB | | | | [address];[place] | | | | | | [address] | | | | + + + + + + | BUN/Creatin | 14Comment: Testing | | EXTERNAL | | | ine Ratio | performed at [facility] [place];[address] | | LAB | | | | [address];[place] | | | | | | [address] | | | | + + + + + + | Calcium | 7.4 (L)Comment: Testing | 8.5 - 10.5 | EXTERNAL | | | | performed at [facility] [place];888 | mg/dL | LAB | | | | [address];[place] | | | | | | [address] | | | | + + + + + + | Protein, | 7.0Comment: Testing | 6.3 - 8.2 g/dL | EXTERNAL | | | Total | performed at [facility] [place] [place];[address] | | LAB | | | | [address];[place] | | | | | | [address] | | | | + + + + + + | Albumin | 2.6 (L)Comment: Testing | 3.3 - 4.8 g/dL | EXTERNAL | | | | performed at [facility] [place];[address] | | LAB | | | | [address];[place] | | | | | | [address] | | | | + + + + + + | Globulin | 4.3Comment: Testing | 1.3 - 4.9 g/dL | EXTERNAL | | | | performed at [facility] [place];[address] | | LAB | | | | [address];[place] | | | | | | [address] | | | | + + + + + + | A/G Ratio | 0.6 (L)Comment: Testing | 1.0 - 2.4 | EXTERNAL | | | | performed at [facility] [place];[address] | | LAB | | | | [address];[place] | | | | | | [address] | | | | + + + + + + | Bilirubin | 0.4Comment: Testing | 0.1 - 1.5 mg/dL | EXTERNAL | | | Total | performed at [facility] [place];[address] | | LAB | | | | [address];[place] | | | | | | [address] | | | | + + + + + + | ALP, | 92Comment: Testing | 35 - 115 U/L | EXTERNAL | | | External | performed at [facility] [place];[address] | | LAB | | | | [address];[place] | | | | | | [address] | | | | + + + + + + | AST | 35Comment: SLT | 10 - 45 U/L | EXTERNAL | | | | HEMOLYSISTesting | | LAB | | | | performed at [facility];[address] | | | | | | [address];[place] | | | | | | [address] | | | | + + + + + + | ALT | 29Comment: Testing | 10 - 65 U/L | EXTERNAL | | | | performed at [facility];[address] | | LAB | | | | [address];[place], [place] | | | | | | [address] | | | | + + + [...] | | | | | | at [facility];[address] [place] [address] | | | | | | Blvd;[place] [address] | | | | + + + [...] EXTERNAL | | | | performed at [facility];888 | uIU/mL | LAB | | | | [address];[place], [place] | | | | | | [address] | | | | + + + [...] | | | | | BON CORONEL (264) on | | | | | | 01/15/2015 11:30:08 AM | | | | + + + + + + + + | Specimen | + + | | + + + + + | Narrative | Performed At | + + + | Historically converted procedure from [facility] environment | EXTERNAL LAB | + + [...] | | | | | | ACUTE DE Testing | | | | | | performed at [facility];[address] | | | | | | [address];[place], [place] | | | | | | [address] | | | | + + + [...] GROWTH | | | Testing performed at [facility], | | | [address] [place] [address] | | + + + + +---------+ [...] | | study for comparison: None FINDINGS: [employer] [place] 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 | | | degenerative [...] study | | for comparison: None FINDINGS: [employer] [place] 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 degenerative changes of the [...] NEGATIVE Testing | | | performed at [facility];[address] [place] [address];[place] [address] | | + + + + +---------+ [...] | | | | | | at [facility];[address] [place] [address] | | | | | | [facility];[place] [address] | | | | + + + [...] EXTERNAL | | | | performed at [facility];[address] | | LAB | | | | [address];[place] | | | | | | [address] | | | | + + + [...] EXTERNAL | | | | performed at [facility];[address] | | LAB | | | | [address];[place] | | | | | | [address] | | | | + + + [...] EXTERNAL | | | | performed at [facility];888 | mmol/L | LAB | | | | [facility];[place], [place] | | | | | | [address] | | | | + + + [...] EXTERNAL | | | | performed at [facility], [address] | | LAB | | | | [address] [facility], | | | | | | [place] [address] | | | | + + + [...] | LAB | | | | [facility], [address] | | | | | | [place] | | | | | | [address] | | | | + + + [...] radiographic examination of the chest, | | | December 2014. Prior study [...] | | | | | ONLY, -COMPUTER (321), | | | | | | purchasing expeditor Shala Gramajo | | | | | | (25) on 01/14/2015 | | | | | | 11:17:50 PM | | | | + + + + + + + + | Specimen | + + | | + + + + + | Narrative | Performed At | + + + | [facility] | EXTERNAL LAB | + + [...] EXTERNAL | | | | performed at [facility] | | LAB | | | | [address];[place] | | | | | | [address] | | | | + + + [...] EXTERNAL | | | | performed at [facility];[address] | | LAB | | | | [address];[place], [place] | | | | | | [address] | | | | + + + [...] LAB | | | | performed at [facility] | | | | | | [address];[place], [place] | | | | | | [address] | | | | + + + [...] EXTERNAL | | | | performed at [facility];[address] | | LAB | | | | [address];[place] | | | | | | [address] | | | | + + + [...] EXTERNAL | | | | performed at [facility];[address] | | LAB | | | | [address];[place], [place] | | | | | | [address] | | | | + + + [...] K/uL | LAB | | | | [facility];[address];[place] [address] | | | | + + + + + + | Red Blood | 4.17Comment: Testing | 3.70 - 5.10 | EXTERNAL | | | Cells | performed at [facility];[address] | M/uL | LAB | | | Counted | [address];[place] | | | | | | [address] | | | | + + + + + + | Hemoglobin | 14.6Comment: Testing | 11.3 - 15.5 | EXTERNAL | | | | performed at [facility];888 | g/dL | LAB | | | | [address];[place] | | | | | | [address] | | | | + + + + + + | Hematocrit, | 42.7Comment: Testing | 34.0 - 46.0 % | EXTERNAL | | | POC | performed at [facility];[address] | | LAB | | | | [address];[place] | | | | | | [address] | | | | + + + + + + | MCV | 102.3 (H)Comment: | 80.0 - 100.0 fl | EXTERNAL | | | | Testing performed at | | LAB | | | | [facility];[address];[place] [address] | | | | + + + + + + | MCH | 35.0 (H)Comment: Testing | 27.0 - 34.0 pg | EXTERNAL | | | | performed at [facility];[address] | | LAB | | | | [address];[place] | | | | | | [address] | | | | + + + + + + | MCHC | 34.2Comment: Testing | 32.0 - 35.5 | EXTERNAL | | | | performed at [facility];888 | g/dL | LAB | | | | [address];[place] | | | | | | [address] | | | | + + + + + + | RDW-CV | 49.9Comment: Testing | 37 - 53 fl | EXTERNAL | | | | performed at [facility];[address] | | LAB | | | | [address];[place] | | | | | | [address] | | | | + + + + + + | Platelet | 209Comment: Testing | 150 - 400 K/uL | EXTERNAL | | | Count | performed at [facility];[address] | | LAB | | | Plasma | [address];[place] | | | | | | [address] | | | | + + + + + + | MPV | 11.1Comment: Testing | fl | EXTERNAL | | | | performed at [facility];[address] | | LAB | | | | [address];[place] | | | | | | [address] | | | | + + + + + + | RBC | 1+Comment: GIANT | | EXTERNAL | | | Morphology | PLATELETS1+MACROTesting | | LAB | | | | performed at [facility];[address] | | | | | [address];[place] | | | | | | [address] | | | | | |Testing performed at [facility];[address];[place] [address] | | | | | | | | | | + + + + + + | Differentia | MANUALComment: Testing | | EXTERNAL | | | l Type | performed at [facility];[address] | | LAB | | | | [address];[place] | | | | | | [address] | | | | + + + + + + | Segmented | 58Comment: Testing | % | EXTERNAL | | | Neutrophils | performed at [facility];[address] | | LAB | | | Manual | [address];[place] | | | | | | [address] | | | | + + + + + + | Lymphocytes | 32Comment: Testing | % | EXTERNAL | | | Manual | performed at [facility];[address] | | LAB | | | | [address];[place] | | | | | | [address] | | | | + + + + + + | Monocytes | 9Comment: Testing | % | EXTERNAL | | | Manual | performed at [facility];[address] | | LAB | | | | [address];[place] | | | | | | [address] | | | | + + + + + + | Eosinophils | 1Comment: Testing | % | EXTERNAL | | | Manual | performed at [facility];[address] | | LAB | | | | [address];[place] | | | | | | [address] | | | | + + + + + + | Absolute | 9.39 (H)Comment: Testing | 1.90 - 7.40 | EXTERNAL | | | Neutrophils | performed at [facility];888 | K/uL | LAB | | | | [address];[place] | | | | | | [address] | | | | + + + + + + | Absolute | 5.18 (H)Comment: Testing | 1.00 - 3.90 | EXTERNAL | | | Lymphocytes | performed at [facility];888 | K/uL | LAB | | | | [address];[place] | | | | | | [address] | | | | + + + + + + | Absolute | 1.46 (H)Comment: Testing | 0.00 - 0.80 | EXTERNAL | | | Monocytes | performed at [facility];888 | K/uL | LAB | | | | [address];[place] | | | | | | [address] | | | | + + + + + + | Absolute | 0.16Comment: Testing | 0.00 - 0.50 | EXTERNAL | | | Eosinophils | performed at [facility];[address] | K/uL | LAB | | | | [address];[place] | | | | | | [address] | | | | + + + + + + | Na | 140Comment: Testing | 135 - 143 | EXTERNAL | | | | performed at [facility];888 | mmol/L | LAB | | | | [address];[place] | | | | | | [address] | | | | + + + + + + | K | 2.8 (L)Comment: Testing | 3.5 - 4.9 | EXTERNAL | | | | performed at [facility];888 | mmol/L | LAB | | | | [address];[place] | | | | | | [address] | | | | + + + + + + | Cl | 100Comment: Testing | 99 - 109 mmol/L | EXTERNAL | | | | performed at [facility];[address] | | LAB | | | | [address];[place] | | | | | | [address] | | | | + + + + + + | CO2 | 29Comment: Testing | 23 - 32 mmol/L | EXTERNAL | | | | performed at [facility];[address] | | LAB | | | | [address];[place] | | | | | | [address] | | | | + + + + + + | Anion Gap | 14Comment: Testing | 5 - 20 mmol/L | EXTERNAL | | | | performed at [facility];[address] | | LAB | | | | [address];[place] | | | | | | [address] | | | | + + + + + + | Glucose, | 107 (H)Comment: Testing | 65 - 99 mg/dL | EXTERNAL | | | Fasting | performed at [facility];[address] | | LAB | | | | [address];[place] | | | | | | [address] | | | | + + + + + + | BUN | 28 (H)Comment: Testing | 8 - 25 mg/dL | EXTERNAL | | | | performed at [facility];[address] | | LAB | | | | [address];[place] | | | | | | [address] | | | | + + + + + + | Creatinine | 2.4 (H)Comment: Testing | 0.50 - 1.00 | EXTERNAL | | | | performed at [facility];888 | mg/dL | LAB | | | | [address];[place] | | | | | | [address] | | | | + + + + + + | BUN/Creatin | 12Comment: Testing | | EXTERNAL | | | ine Ratio | performed at [facility];[address] | | LAB | | | | [address];[place] | | | | | | [address] | | | | + + + + + + | Calcium | 8.1 (L)Comment: Testing | 8.5 - 10.5 | EXTERNAL | | | | performed at [facility];888 | mg/dL | LAB | | | | [address];[place] | | | | | | [address] | | | | + + + + + + | Protein, | 9.3 (H)Comment: Testing | 6.3 - 8.2 g/dL | EXTERNAL | | | Total | performed at [facility];[address] | | LAB | | | | [address];[place] | | | | | | [address] | | | | + + + + + + | Albumin | 3.3Comment: Testing | 3.3 - 4.8 g/dL | EXTERNAL | | | | performed at [facility];[address] | | LAB | | | | [address];[place] | | | | | | [address] | | | | + + + + + + | Globulin | 6.0 (H)Comment: Testing | 1.3 - 4.9 g/dL | EXTERNAL | | | | performed at [facility];[address] | | LAB | | | | [address];[place] | | | | | | [address] | | | | + + + + + + | A/G Ratio | 0.5 (L)Comment: Testing | 1.0 - 2.4 | EXTERNAL | | | | performed at [facility];[address] | | LAB | | | | [address];[place] | | | | | | [address] | | | | + + + + + + | Bilirubin | 0.4Comment: Testing | 0.1 - 1.5 mg/dL | EXTERNAL | | | Total | performed at [facility];[address] | | LAB | | | | [address];[place] | | | | | | [address] | | | | + + + + + + | ALP, | 129 (H)Comment: Testing | 35 - 115 U/L | EXTERNAL | | | External | performed at [facility];[address] | | LAB | | | | [address];[place] | | | | | | [address] | | | | + + + + + + | AST | 39Comment: Testing | 10 - 45 U/L | EXTERNAL | | | | performed at [facility];[address] | | LAB | | | | [address];[place] | | | | | | [address] | | | | + + + + + + | ALT | 38Comment: Testing | 10 - 65 U/L | EXTERNAL | | | | performed at [facility];[address] | | LAB | | | | [address];[place] | | | | | | [address] | | | | + + + [...] | | | | | | at [facility];[address] | | | | | | [address];[place] [address] | | | | + + + + + + | CK, Total | 151Comment: Testing | 30 - 240 U/L | EXTERNAL | | | | performed at [facility];[address] | | LAB | | | | [address];[place] | | | | | | [address] | | | | + + + [...] | | | | | performed at [facility];[address] | | | | | | [address];[place] | | | | | | [address] | | | | + + + + + + | aPTT, | 26Comment: Testing | 23 - 32 seconds | EXTERNAL | | | Patient | performed at [facility];[address] | | LAB | | | | [address];[place] | | | | | | [address] | | | | + + + + + + | CK-MB | 3.9 (H)Comment: Testing | 0.5 - 3.6 ng/mL | EXTERNAL | | | | performed at [facility];[address] | | LAB | | | | [address];[place], [place] | | | | | | [address] | | | | + + + [...] | | | | | | ACUTE DE Testing | | | | | | performed at [facility] | | | | | | [address] [facility];[place], [place] | | | | | | [address] | | | | + + + [...]
--- OUTSIDE RECORDS SUMMARY | ~2019-10-16 | XMS | Encounter Summary ---
Demographics + + + | Address | [address] | | | [place] [address] | + + + | Home Phone | | + + + | Preferred Language | Unknown | + + + | Marital Status | Unknown | + + + | Jew Affiliation | Unknown | + + + | Race | Unknown | + + + | Ethnic Group | Unknown | + + + Author + + + | Author | [facility] | + + + | Organization | [facility] | + + + | Address | Unknown | + + + | Phone | Unavailable | + + + Care Team Providers + +------+ + | Care [employer] Agent Name | Role | Phone | [...] | | [address] | [facility] [place] | | | | | [place], | [address] | | | | | [place] [address] | [phone] | | | | | [phone] | | | +--------+ + + + [...]
--- OUTSIDE RECORDS SUMMARY | ~2019-10-16 | XMS | Encounter Summary ---
Demographics + + + | Address | [address] | | | [place] [address] | + + + | Home Phone | | + + + | Preferred Language | Unknown | + + + | Marital Status | Single | + + + | Evangelical Affiliation | 1041 | + + + | Race | Unknown | + + + | Ethnic Group | Unknown | + + + Author + + + | Author | [facility] | | | and [place] | + + + | Organization | [facility] | | | [...] Team Providers + +------+ + | Care Physicist [employer] Name | Role | Phone | + +------+ + | Yovani Santana MD | PCP | | + +------+ + Encounter Details +--------+ + + + + | Date | Type | Department | Care Team | Description | +--------+ + + + + | 01/28/ | Hospital | [facility] | Jacob Smith, | | | 2014 - | Encounter | [facility] | MD Carmelo SANTAMARIA | | | | | CARE FLO[address] | [place] [address] | | | 02/03/ | | TIERA SANTAMARIA | [phone] | | | 2014 | | [place], [place] | | | | | | [address] | | | | | | [phone] | | | +--------+ + + + [...] Date of Service: 02/03/15 1029 Status: Signed Manager Poker: Jose Maria Espinal MD (Physician) Related Notes: Original Note by Jose Maria Espinal MD (Physician) filed at 02/04/15 1345 [facility] Service: Hospitalist Physician Discharge Summary Patient ID: [...] 2-4 lpm, Presented as a transfer from [facility] in [place] for fever of 101 and altered mental s tatus. She was discharged from [facility] on 01/09/15 for elevated troponin and [...] antibiotics. She was brought back in to [facility] for fever and confusion. UA and CXR reportedly negative there. SBP was 90s. She had formed stool there but en route here she did develop watery stool, tested C diff + here.".......per admitting MD/Dr. Smith . The patient was admitted to [facility] with a diagnosis of Clostridium difficile infection while she was being transferred from [facility] with fever and altered mental status. Th e patient has underlying immunosuppression secondary to a remote history of liver transplant on chronic immunosuppressive therapy with azathioprine and cyclosporin. Following her trans fletcher to [facility], she was started on oral vancomycin [...] medically stable for discharge to return to [facility] in [place] on Jan. ADDITIONAL ISSUES 1. Recurrent atelectasis. [...] days. 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 We sent some of them to a specific pharmacy. Go t o these places to get your medications. [facility] - [place], [place] - [address] - lactobacillus granules [address] [place] [address] You may get the following medications from [...] Case Management by Pedro Partida RN at 02/03/15 8127 Author: Pedro Partida RN Service: (none) Author Type: Registered Nurse Filed: 02/03/15 5546 Date of Service: 02/03/151608 Status: Signed Manager Poker: ePdro Partida RN (Registered Nurse) 02/03/15 1604 Discharge Planning Evaluation Admitting Diagnosis Elevated temp, CKD, post liver transplant Readmission Yes-within 14 days Reason for readmission Fever, confusion, C.dif Last discharge disposition [facility] Needs met at last discharge Yes Picked up discharge Rx medications Yes Started prescribed DC meds Yes Understood discharge instructions Yes Assistance available Yes Concerns for meeting needs No Caregiver after Discharge Yes Mental Status Oriented Anticipated Disposition Facility Type [facility] facility [facility] Other (comment) ([facility] in [place]) Disposition: Return to [facility] Transportation: Facility van to transport. All orders, [...] by Jose Maria Espinal MD at 02/02/15 1522 Author: Jose Maria Espinal MD Service: Hospitalist Author Type: Physician Filed: 02/03/15 0900 Date of Service: 02/02/15 1522 Status: Signed Manager Poker: Jose Maria Espinal MD (Physician) Related Notes: Original Note by Jose Maria Espinal MD (Physician) filed at 02/02/15 1950 [facility] Service: Hospitalist Progress Note Pt: Cole Ernst AGE/SEX: 69 y.o. female : 1945 ROOM: [address] [place] [address] History of Present Illness: " The patient is a 69 y.o. female with significant past medical history of liver transplant int he 90s on cyclosporine and imuran, chronic pain on methadone, CKD st 3, chronic home O2 of unclear etiology from 2-4 lpm, Presented as a transfer from [facility] in [place] for fever of 101 and altered mental s tatus. She was discharged from [facility] on 01/09/15 for elevated troponin and [...] antibiotics. She was brought back in to [facility] for fever and confusion. UA and CXR [...] establishing readiness of the faci lity in [place] to accept the patient in the next [...] behavior is normal. LABS: Recent Labs Lab 02/02/1531602/01/1532501/31/15 0437 WBC 8.59 8.36 10.30 HGB 9.7* 9.4* 9.7* HCT 29.6* 29.1* 29.9* PLT 181 174 162 Recent Labs Lab 02/02/15 1412 02/02/1531602/01/15 0326 01/31/15 0437 NA -- 138 137 139 K 3.7 3.2* 3.8 4.2 CL -- 103 111* 112* CO2 -- 31 25 27 BUN -- 10 13 19 CREATININE -- 0.83 0.74 1.01* PROT -- 6.2* 5.9* 5.9* BILITOT -- 0.5 0.4 0.3 ALT -- 15 14 14 AST -- 35 23 24 Phosphorus: Recent Labs Lab 02/02/15 0317 PHOS 2.9 Recent Labs Lab 02/02/15 1412 [...] contrast. Prior study for comparison: None FINDINGS: Foundation Relations Director 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 deg enerative changes of [...] 61%. Xr Chest 1 View 01/28/2015 COLE HARVEYSH 1945 69 years XR CHEST 1 VIEW [...] LA/Ao: 1.57 D-E Excursion: 2.11 cm E-F Juab: 0.09 m/s EPSS: 0.48 cm HR: 77.41 [...] TV A Billy: 0.66 m/s TV Dec Juab: 4.36 m/s2 TV Dec Time: 184.41 ms TV E Billy: 0.80 m/s TV E/A Rat io: 1.21 Batch Records Clerk: NEDRA Authenticated by: Gil Martines MD Report [...] Procedure: COLONOSCOPY; Surgeon: Juan Ramey MD; Location: [facility]; Service: Gastroenterology; Laterality: N/A; PROBLEM [...] by Jose Maria Espinal MD at 02/01/15 3697 Author: Jose Maria Espinal MD Service: Hospitalist Author Type: Physician Filed: 02/02/15 1521 Date of Service: 02/01/151716 Status: Signed Manager Poker: Jose Maria Espinal MD (Physician) Related Notes: Original Note by Jose Maria Espinal MD (Physician) filed at 02/02/15 7864 [facility] Service: Hospitalist Progress Note Pt: Cole Ernst AGE/SEX: 69 y.o. female : 1945 ROOM: [address] [place] [address] History of Present Illness: " The patient is a 69 y.o. female with significant past medical history of liver transplant int he 90s on cyclosporine and imuran, chronic pain on methadone, CKD st 3, chronic home O2 of unclear etiology from 2-4 lpm, Presented as a transfer from [facility] in [place] for fever of 101 and altered mental s tatus. She was discharged from [facility] on 01/09/15 for elevated troponin and [...] antibiotics. She was brought back in to [facility] for fever and confusion. UA and CXR [...] establishing readiness of the faci lity in [place] to accept the patient in the next [...] C) Temporal 65 16 99 % - 01/31/152025 156/71 mmHg - - 71 - - - 01/31/15 1920 174/85 mmHg 98.4 F (36.9 C) Oral [...] behavior is normal. LABS: Recent Labs Lab 02/01/15 0326 01/31/15 0437 01/30/15 0542 WBC 8.36 10.30 15.91* HGB 9.4* 9.7* 10.2* HCT 29.1* 29.9* 31.6* PLT 174 162 146* Recent Labs Lab 02/01/15 0326 01/31/15 0437 01/30/15 0542 NA 137 139 137 K 3.8 [...] contrast. Prior study for comparison: None FINDINGS: Foundation Relations Director 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 deg enerative changes of [...] LA/Ao: 1.57 D-E Excursion: 2.11 cm E-F Juab: 0.09 m/s EPSS: 0.48 cm HR: 77.41 [...] TV A Billy: 0.66 m/s TV Dec Juab: 4.36 m/s2 TV Dec Time: 184.41 ms TV E Billy: 0.80 m/s TV E/A Rat io: 1.21 Batch Records Clerk: NEDRA Authenticated by: Gil Martines MD Report [...] Procedure: COLONOSCOPY; Surgeon: Juan Ramey MD; Location: [facility]; Service: Gastroenterology; Laterality: N/A; PROBLEM [...] Currently with normal liver function tests. 3. Cbeue-ys-khgjxpu liver disease, stage III. Creatinine level has [...] 01/31/152124 Date of Service: 01/31/151513 Status: Signed Manager Poker: Jose Maria Espinal MD (Physician) Related Notes: Original Note by Jose Maria Espinal MD (Physician) filed at 01/31/15 1523 [facility] Service: Hospitalist Progress Note Pt: Cole Ernst AGE/SEX: 69 y.o. female : 1945 ROOM: [address] [place] [address] History of Present Illness: " The patient is a 69 y.o. female with significant past medical history of liver transplant int he 90s on cyclosporine and imuran, chronic pain on methadone, CKD st 3, chronic home O2 of unclear etiology from 2-4 lp, Presented as a transfer from [facility] in [place] for fever of 101 and altered mental s tatus. She was discharged from [facility] on 01/09/15 for elevated troponin and [...] antibiotics. She was brought back in to [facility] for fever and confusion. UA and CXR [...] behavior is normal. LABS: Recent Labs Lab 01/31/1543601/30/15 0542 01/29/15 1900 WBC 10.30 15.91* 17.94* HGB 9.7* 10.2* [...] contrast. Prior study for comparison: None FINDINGS: Foundation Relations Director 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 deg enerative changes of [...] or extraluminal fluid collection Electronically signed by Gray Wong MD on 10:11 PM Nm Myocardial [...] LA/Ao: 1.57 D-E Excursion: 2.11 cm E-F Juab: 0.09 m/s EPSS: 0.48 cm HR: 77.41 [...] TV A Billy: 0.66 m/s TV Dec Juab: 4.36 m/s2 TV Dec Time: 184.41 ms TV E Billy: 0.80 m/s TV E/A Rat io: 1.21 Batch Records Clerk: NEDRA Authenticated by: Gil Martines MD Report [...] Procedure: COLONOSCOPY; Surgeon: Juan Ramey MD; Location: [facility]; Service: Gastroenterology; Laterality: N/A; PROBLEM [...] Progress Notes by Catina Moon at 01/31/15 131 Author: Catina Moon Service: (none) Author Type: Filed: 01/31/151312 Date of Service: 01/31/151312 Status: Signed Manager Poker: Catina Moon () Attempted visit. Pt sitting in chair sleeping. No family present. Chaplain Catina Moon onver alessandro Transaction, Provider Unknown - 01/31/2015 11:35 AM PDT Therapy Progress Note by Mahi Yanes PTA at 01/31/15 1366 Author: Mahi Yanes PTA Service: (none) Author Type: Traffic Sergeant Filed: 01/31/15 1302 Date of Service: 01/31/151134 Status: Signed Manager Poker: Mahi Yanes PTA (Traffic Sergeant) 01/31/15 113 PT Last Visit PT Received On 01/31/15 [...] PDT Case Management by Gregg Keene MS, DIRECTOR OUTPATIENT SERVICES at 01/31/15 1007 Author: Gregg Keene MS, DIRECTOR OUTPATIENT SERVICES Service: (none) Author Type: Ready To Wear Department Manager Filed: 01/31/15 1546 Date of Service: 01/31/15 1007 Status: Addendum Manager Poker: Gregg Keene MS, DIRECTOR OUTPATIENT SERVICES (Ready To Wear Department Manager) Related Notes: Original Note by Gregg Keene MS, DIRECTOR OUTPATIENT SERVICES (Ready To Wear Department Manager) filed at 01/31/15 1007 Discharge planning - CM faxed updated clinical to Gi at [facility]. Discharge form s on front of chart for MD signature. CM notified Gi of anticipated d/c this weekend. onver alessandro Transaction, Provider Unknown - 01/30/2015 5:05 PM PDT Therapy Progress Note by Gail Vernon PT at 01/30/151704 Author: Gail Vernon PT Service: (none) Author Type: Physical Therapist Filed: 01/30/15 1754 Date of Service: 01/30/151704 Status: Signed Manager Poker: Gail Vernon PT (Physical Therapist) 01/30/151704 PT Last Visit PT Received On 01/30/15 [...] need f/u on L great toe pn/edema Jose Maria Grimes MD - 01/30/2015 2:14 PM PDTFormatting of this note might be different from armando tellez original. Progress Notes by Jose Maria Espinal MD at 01/30/15 4208 Author: Jose Maria Espinal MD Service: Hospitalist Author Type: Physician Filed: 01/31/15 9367 Date of Service: 01/30/154 Status: Signed Manager Poker: Jose Maria Espinal MD (Physician) Related Notes: Original Note by Jose Maria Espinal MD (Physician) filed at 01/30/15 6918 [facility] Service: Hospitalist Progress Note Pt: Cole Ernst AGE/SEX: 69 y.o. female : 1945 ROOM: [facility]/6601-1 History of Present Illness: " The patient is a 69 y.o. female with significant past medical history of liver transplant int he 90s on cyclosporine and imuran, chronic pain on methadone, CKD st 3, chronic home O2 of unclear etiology from 2-4 lpm, Presented as a transfer from [facility] in [place] for fever of 101 and altered mental s tatus. She was discharged from [facility] on 01/09/15 for elevated troponin and [...] antibiotics. She was brought back in to [facility] for fever and confusion. UA and CXR [...] Lab 01/30/15541 PHOS 2.5 Recent Labs Lab 01/30/1554101/29/155 01/28/15 1447 MG 1.9 1.8 1.1* Recent Labs [...] contrast. Prior study for comparison: None FINDINGS: Foundation Relations Director 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 deg enerative changes of [...] 61%. Xr Chest 1 View 01/28/2015 COLE Corcoran JOVANNY 1945 69 years XR CHEST 1 VIEW [...] LA/Ao: 1.57 D-E Excursion: 2.11 cm E-F Juab: 0.09 m/s EPSS: 0.48 cm HR: 77.41 [...] TV A Billy: 0.66 m/s TV Dec Juab: 4.36 m/s2 TV Dec Time: 184.41 ms TV E Billy: 0.80 m/s TV E/A Rat io: 1.21 Batch Records Clerk: NEDRA Authenticated by: Gil Martines MD Report [...] Procedure: COLONOSCOPY; Surgeon: Juan Ramey MD; Location: [facility]; Service: Gastroenterology; Laterality: N/A; PROBLEM [...] Patient's live r functions remain normal. 3. Gorfh-fr-ogoeldk kidney disease stage III. Creatinine level has [...] by Jose Maria Espinal MD at 01/29/15 1360 Author: Jose Maria Espinal MD Service: Hospitalist Author Type: Physician Filed: 01/30/15 0957 Date of Service: 01/29/15 1651 Status: Signed Manager Poker: Jose Maria Espinal MD (Physician) Related Notes: Original Note by Jose Maria Espinal MD (Physician) filed at 01/29/152024 [facility] Service: Hospitalist Progress Note Pt: Cole Ernst AGE/SEX: 69 y.o. female : 1945 ROOM: [address] [place] [address] History of Present Illness: " The patient is a 69 y.o. female with significant past medical history of liver transplant int he 90s on cyclosporine and imuran, chronic pain on methadone, CKD st 3, chronic home O2 of unclear etiology from 2-4 lp, Presented as a transfer from [facility] in [place] for fever of 101 and altered mental s tatus. She was discharged from [facility] on 01/09/15 for elevated troponin and [...] antibiotics. She was brought back in to [facility] for fever and confusion. UA and CXR [...] behavior is normal. LABS: Recent Labs Lab 01/29/1543401/28/151446 WBC 18.47* 19.78* HGB 10.8* 12.6 HCT 32.7* 38.9 PLT 151 167 Recent Labs Lab 01/29/15 04301/28/15 1526 01/28/15 1447 NA 137 -- 137 K 4.4 -- 3.4* CL 106 -- 101 CO2 24 -- 27 BUN 22 -- 18 CREATININE 1.9* 1.4* 1.3* PROT 6.5 -- 7.9 BILITOT 0.5 -- 0.6 ALT 23 -- 30 AST 41 -- 51* Phosphorus: Recent Labs Lab 01/29/15434 PHOS 3.5 Recent Labs Lab 01/29/15 0435 [...] contrast. Prior study for comparison: None FINDINGS: Foundation Relations Director 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 deg enerative changes of [...] at 61%. Xr Chest 1 View 01/28/2015 COLEEnid ERNST 1945 69 years XR CHEST 1 [...] LA/Ao: 1.57 D-E Excursion: 2.11 cm E-F Juab: 0.09 m/s EPSS: 0.48 cm HR: 77.41 [...] TV A Billy: 0.66 m/s TV Dec Juab: 4.36 m/s2 TV Dec Time: 184.41 ms TV E Billy: 0.80 m/s TV E/A Rat io: 1.21 Batch Records Clerk: NEDRA Authenticated by: Gil Martines MD Report [...] Procedure: COLONOSCOPY; Surgeon: Juan Ramey MD; Location: [facility]; Service: Gastroenterology; Laterality: N/A; PROBLEM [...] Management by Pedro Partida RN at 01/29/15 5484 Author: Pedro Partida RN Service: (none) Author Type: Registered Nurse Filed: 01/29/15 1541 Date of Service: 01/29/15 1525 Status: Signed Manager Poker: Pedro Partida RN (Registered Nurse) 01/29/15 152 Discharge Planning Evaluation Admitting Diagnosis Intestinal infection C.dif. Readmission Yes-within 14 days Reason for readmission Intestinal infection C.dif Last discharge disposition [facility] Needs met at last discharge Yes Picked up discharge Rx medications Not applicable Followed up with primary or specialty provider Yes Understood discharge instructions Yes Assistance available Yes Living Arrangements Alone Support Systems Friends/neighbors Type of Residence Private residence House type Apartment Independent with ADL's Yes Independent with Mobility Yes Caregiver after Discharge Yes Mental Status Oriented Anticipated Disposition Facility Type [facility] facility [facility] Other (comment) ([facility] in [place]) Met with: patient and discussed discharge planning, Pt is a 69 y.o., female who was discharged from [facility] 2 wee ks ago to [facility]. Her sister, Renée Tipton is emergency contact, . Patient's PCP is: KI DE JESUS Patient's insurance: Medicare Coverage concerns: Medication coverage/concerns: Community resources utilized / needed: Assistance in transportation: Identification of any specific education / training: Barriers to Discharge / Alternative housing needed: Anticipated DCP: Return to [facility] PEDRO PARTIDA RN onver alessandro Transaction, Provider Unknown - 01/29/2015 8:55 AM PDT Therapy Progress Note by Barbara Edmond PT at 01/29/15 0892 Author: Barbara Edmond PT Service: (none) Author Type: Physical Therapist Filed: 01/29/15 0933 Date of Service: 01/29/15 0855 Status: Signed Manager Poker: Barbara Edmond PT (Physical Therapist) 01/29/15854 PT Last Visit PT Received On 01/29/15 [...] to SNF after current hospital stay. Just MINIATURE MODEL MAKER Júnior ADL's and Júnior mobility using 4ww for short room distances, had been using manual w/c in hallway at SNF. Reports a few falls at facility ov er last week, otherwise denies falls over last 6mos. Was getting therapies at facility. Prior Function Level of Anton Modified independent with ADLs;Modified independent with functional [...] Barriers to Discharge Physical Deficits Impacting Functional Anton;Self-care Deficit s Impacting Functional Anton;Equipment Needs (see comment);Pain Recommendation Comments Needs return [...] Barriers to Discharge Physical Deficits Impacting Functional Anton;Self-care Deficit s Impacting Functional Anton;Equipment Needs (see comment);Pain Recommendation Comments Needs return [...] 01/29/15831 Date of Service: 01/29/15830 Status: Signed Manager Poker: Malick Ramos RN (Registered Nurse) Infection Prevention Note: Patient stool is positive for C. Diff. Contact Enteric Precautions are required until furt her notice. Thank you. Malick Ramos RN, BA, Supervisor Screen Printing onver alessandro Transaction, Provider Unknown - 01/28/2015 3:23 PM PDT Progress Notes by Jimena Duarte RPH at 01/28/15 1523 Author: Jimena Duarte RPH Service: (none) Author Type: Pharmacist Filed: 01/28/151522 Date of Service: 01/28/151522 Status: Signed Manager Poker: Jimena Duarte RPH (Pharmacist) Zosyn Extended Infusion Initial Consult-Per Dr. Jacob Ernst 69 y.o. female CrCl cannot be calculated (Unknown ideal weight.). NEUTROPHILS ABS Date Value Ref Range Status 01/18/2015 3.26 1.90 - 7.40 K/uL Final Comment: Testing performed at [facility], [address] [place] [address] CREATININE Date Value Ref Range Status 01/19/2015 0.96 0.50 - 1.00 mg/dL Final Comment: Testing performed at [facility], [address] [place] [address] Zosyn extended Infusion loading and maintenance dose guidelines Loading Dose 4.5 g IV Over 30 minutes CrCl >20 ml/min 3.375 g IV Q 8 hours Over 4 hours CrCl 10-20 ml/min 3.375 g IV Q 12 hours Over 4 hours CrCl <10, HD, PD Follow [facility] Dosage Adjustments in Renal Dysfunction Protocol [...] Progress Notes by Jimena Duarte RPH at 01/28/151515 Author: Jimena Duarte RPH Service: (none) Author Type: Pharmacist Filed: 01/28/151515 Date of Service: 01/28/151515 Status: Signed Manager Poker: Jimena Duarte RPH (Pharmacist) Renal Dosing Monitoring: Cole Ernst 69 y.o. female Pharmacy dosing for [...] | | | | | [place] | | | | | | [id number] | | | | | | | [...] EXTERNAL | | | | performed at [facility], [address] | K/uL | LAB | | | | [address] [place], | | | | | | [place] [address] | | | | + + + + + + | Red Blood | 2.72 (L)Comment: Testing | 3.70 - 5.10 | EXTERNAL | | | Cells | performed at [facility], [address] | M/uL | LAB | | | Counted | [address], | | | | | | [place] [address] | | | | + + + + + + | Hemoglobin | 9.6 (L)Comment: Testing | 11.3 - 15.5 | EXTERNAL | | | | performed at [facility], [address] | g/dL | LAB | | | | [address], | | | | | | [place] [address] | | | | + + + + + + | Hematocrit, | 28.8 (L)Comment: Testing | 34.0 - 46.0 % | EXTERNAL | | | POC | performed at [facility], [address] | | LAB | | | | [address], | | | | | | [place] [address] | | | | + + + + + + | MCV | 106.0 (H)Comment: | 80.0 - 100.0 fl | EXTERNAL | | | | Testing performed at | | LAB | | | | [facility], [address] | | | | | | [place] | | | | | | [address] | | | | + + + + + + | MCH | 35.2 (H)Comment: Testing | 27.0 - 34.0 pg | EXTERNAL | | | | performed at [facility], [address] | | LAB | | | | [address], | | | | | | [place] [address] | | | | + + + + + + | MCHC | 33.2Comment: Testing | 32.0 - 35.5 | EXTERNAL | | | | performed at [facility], [address] | g/dL | LAB | | | | [address], | | | | | | [place] [address] | | | | + + + + + + | RDW-CV | 53.4 (H)Comment: Testing | 37 - 53 fl | EXTERNAL | | | | performed at [facility], [address] | | LAB | | | | [address], | | | | | | [place] [address] | | | | + + + + + + | Platelet | 216Comment: Testing | 150 - 400 K/uL | EXTERNAL | | | Count | performed at [facility], [address] | | LAB | | | Plasma | [address], | | | | | | [place] [address] | | | | + + + + + + | MPV | 10.5Comment: Testing | fl | EXTERNAL | | | | performed at [facility], [address] | | LAB | | | | [address], | | | | | | [place] [address] | | | | + + + + + + | Differentia | MANUALComment: Testing | | EXTERNAL | | | l Type | performed at [facility], [address] | | LAB | | | | [address], | | | | | | [place], [place] [address] | | | | + + + + + + | Segmented | 35Comment: Testing | % | EXTERNAL | | | Neutrophils | performed at [facility], [address] | | LAB | | | Manual | [address], | | | | | | [place], [place] [address] | | | | + + + + + + | % Bands | 1Comment: Testing | % | EXTERNAL | | | | performed at [facility], [address] | | LAB | | | | [address], | | | | | | [place], [place] [address] | | | | + + + + + + | Lymphocytes | 44Comment: Testing | % | EXTERNAL | | | Manual | performed at [facility], [address] | | LAB | | | | [address], | | | | | | [place] [address] | | | | + + + + + + | Monocytes | 12Comment: Testing | % | EXTERNAL | | | Manual | performed at [facility], [address] | | LAB | | | | [address], | | | | | | [place] [address] | | | | + + + + + + | Eosinophils | 8Comment: Testing | % | EXTERNAL | | | Manual | performed at [facility], [address] | | LAB | | | | [address], | | | | | | [place] [address] | | | | + + + + + + | Absolute | 3.08Comment: Testing | 1.90 - 7.40 | EXTERNAL | | | Neutrophils | performed at [facility], [address] | K/uL | LAB | | | | [address], | | | | | | [place] [address] | | | | + + + + + + | Bands | 0.09Comment: Testing | 0.00 - 0.20 | EXTERNAL | | | Manual | performed at [facility], [address] | K/uL | LAB | | | | [address], | | | | | | [place] [address] | | | | + + + + + + | Absolute | 3.88Comment: Testing | 1.00 - 3.90 | EXTERNAL | | | Lymphocytes | performed at [facility], [address] | K/uL | LAB | | | | [address], | | | | | | [place] [address] | | | | + + + + + + | Absolute | 1.06 (H)Comment: Testing | 0.00 - 0.80 | EXTERNAL | | | Monocytes | performed at [facility], [address] | [address]/uL | LAB | | | | [address], | | | | | | [place] [address] | | | | + + + + + + | Absolute | 0.70 (H)Comment: Testing | 0.00 - 0.50 | EXTERNAL | | | Eosinophils | performed at [facility], [address] | [address]/uL | LAB | | | | W [facility], | | | | | | [place] [address] | | | | + + + + + + | RBC | NORMAL PLT MORPHComment: | | EXTERNAL | | | Morphology | NORMAL RBC MORPHTesting | | LAB | | | | performed at [facility], [address] | | | | | | [facility], | | | | | | [place] [address] | | | | + + + [...] EXTERNAL | | | | performed at [facility], [address] | | LAB | | | | [address], | | | | | | [place] [address] | | | | + + + [...] EXTERNAL | | | | performed at [facility], [address] | | LAB | | | | [address], | | | | | | [place] [address] | | | | + + + [...] | | | | | [place] [address] | | | | + + + + + + | K | 4.0Comment: Testing | 3.5 - 4.9 | EXTERNAL | | | | performed at [facility], [address] | mmol/L | LAB | | | | [address], | | | | | | [place] [address] | | | | + + + + + + | Cl | 102Comment: Testing | 99 - 109 mmol/L | EXTERNAL | | | | performed at [facility], [address] | | LAB | | | | [address], | | | | | | [place] [address] | | | | + + + + + + | CO2 | 33 (H)Comment: Testing | 23 - 32 mmol/L | EXTERNAL | | | | performed at [facility], [address] | | LAB | | | | [address], | | | | | | [place] [address] | | | | + + + + + + | Anion Gap | 5Comment: Testing | 5 - 20 mmol/L | EXTERNAL | | | | performed at [facility], [address] | | LAB | | | | [address], | | | | | | [place] [address] | | | | + + + + + + | Glucose, | 105 (H)Comment: Testing | 65 - 99 mg/dL | EXTERNAL | | | Fasting | performed at [facility], [address] | | LAB | | | | [address], | | | | | | [place] [address] | | | | + + + + + + | BUN | 9Comment: Testing | 8 - 25 mg/dL | EXTERNAL | | | | performed at [facility], [address] | | LAB | | | | [address], | | | | | | [place] [address] | | | | + + + + + + | Creatinine | 0.82Comment: Testing | 0.50 - 1.00 | EXTERNAL | | | | performed at [facility], [address] | mg/dL | LAB | | | | [address], | | | | | | [place] [address] | | | | + + + + + + | BUN/Creatin | 11Comment: Testing | | EXTERNAL | | | ine Ratio | performed at [facility], [address] | | LAB | | | | [address], | | | | | | [place] [address] | | | | + + + + + + | Calcium | 8.5Comment: Testing | 8.5 - 10.5 | EXTERNAL | | | | performed at [facility], [address] | mg/dL | LAB | | | | [address], | | | | | | [place] [address] | | | | + + + + + + | Protein, | 6.3Comment: Testing | 6.3 - 8.2 g/dL | EXTERNAL | | | Total | performed at [facility], [address] | | LAB | | | | [address], | | | | | | [place] [address] | | | | + + + + + + | Albumin | 2.8 (L)Comment: Testing | 3.3 - 4.8 g/dL | EXTERNAL | | | | performed at [facility], [address] | | LAB | | | | [address], | | | | | | [place] [address] | | | | + + + + + + | Globulin | 3.5Comment: Testing | 1.3 - 4.9 g/dL | EXTERNAL | | | | performed at [facility], [address] | | LAB | | | | [address], | | | | | | [place] [address] | | | | + + + + + + | A/G Ratio | 0.8 (L)Comment: Testing | 1.0 - 2.4 | EXTERNAL | | | | performed at [facility], [address] | | LAB | | | | [address], | | | | | | [place] [address] | | | | + + + + + + | Bilirubin | 0.5Comment: Testing | 0.1 - 1.5 mg/dL | EXTERNAL | | | Total | performed at [facility], [address] | | LAB | | | | [address], | | | | | | [place] [address] | | | | + + + + + + | ALP, | 102Comment: Testing | 35 - 115 U/L | EXTERNAL | | | External | performed at [facility], [address] | | LAB | | | | [address], | | | | | | [place] [address] | | | | + + + + + + | AST | 53 (H)Comment: Testing | 10 - 45 U/L | EXTERNAL | | | | performed at [facility], [address] | | LAB | | | | [address], | | | | | | [place] [address] | | | | + + + + + + | ALT | 21Comment: Testing | 10 - 65 U/L | EXTERNAL | | | | performed at [facility], [address] | | LAB | | | | [address], | | | | | | [place] [address] | | | | + + + [...] | | | | | [place] [address] | | | | + + + [...] EXTERNAL | | | | performed at [facility];[address] | mmol/L | LAB | | | | [address];[place], [place] | | | | | | [address] | | | | + + + [...] EXTERNAL | | | | performed at [facility] | | LAB | | | | [address] [facility];[place], [place] | | | | | | [address] [...] EXTERNAL | | | | performed at [facility], [address] | K/uL | LAB | | | | [address], | | | | | | [place] [address] | | | | + + + + + + | Red Blood | 2.78 (L)Comment: Testing | 3.70 - 5.10 | EXTERNAL | | | Cells | performed at [facility], [address] | M/uL | LAB | | | Counted | [address], | | | | | | [place] [address] | | | | + + + + + + | Hemoglobin | 9.7 (L)Comment: Testing | 11.3 - 15.5 | EXTERNAL | | | | performed at [facility], [address] | g/dL | LAB | | | | [address], | | | | | | [place] [address] | | | | + + + + + + | Hematocrit, | 29.6 (L)Comment: Testing | 34.0 - 46.0 % | EXTERNAL | | | POC | performed at [facility], [address] | | LAB | | | | [address], | | | | | | [place] [address] | | | | + + + + + + | MCV | 106.3 (H)Comment: | 80.0 - 100.0 fl | EXTERNAL | | | | Testing performed at | | LAB | | | | [facility], [address] | | | | | | [place] | | | | | | [address] | | | | + + + + + + | MCH | 34.8 (H)Comment: Testing | 27.0 - 34.0 pg | EXTERNAL | | | | performed at [facility], [address] | | LAB | | | | [address], | | | | | | [place] [address] | | | | + + + + + + | MCHC | 32.8Comment: Testing | 32.0 - 35.5 | EXTERNAL | | | | performed at [facility], [address] | g/dL | LAB | | | | [address], | | | | | | [place] [address] | | | | + + + + + + | RDW-CV | 53.8 (H)Comment: Testing | 37 - 53 fl | EXTERNAL | | | | performed at [facility], [address] | | LAB | | | | [address], | | | | | | [place] [address] | | | | + + + + + + | Platelet | 181Comment: Testing | 150 - 400 K/uL | EXTERNAL | | | Count | performed at [facility], [address] | | LAB | | | Plasma | [address], | | | | | | [place] [address] | | | | + + + + + + | MPV | 11.3Comment: Testing | fl | EXTERNAL | | | | performed at [facility], [address] | | LAB | | | | [address], | | | | | | [place] [address] | | | | + + + + + + | Differentia | MANUALComment: Testing | | EXTERNAL | | | l Type | performed at [facility], [address] | | LAB | | | | [address], | | | | | | [place] [address] | | | | + + + + + + | Segmented | 45Comment: Testing | % | EXTERNAL | | | Neutrophils | performed at [facility], [address] | | LAB | | | Manual | [address], | | | | | | [place] [address] | | | | + + + + + + | % Bands | 1Comment: Testing | % | EXTERNAL | | | | performed at [facility], [address] | | LAB | | | | [address], | | | | | | [place] [address] | | | | + + + + + + | Lymphocytes | 35Comment: Testing | % | EXTERNAL | | | Manual | performed at [facility], [address] | | LAB | | | | [address], | | | | | | [place] [address] | | | | + + + + + + | Monocytes | 11Comment: Testing | % | EXTERNAL | | | Manual | performed at [facility], [address] | | LAB | | | | [address], | | | | | | [place] [address] | | | | + + + + + + | Eosinophils | 8Comment: Testing | % | EXTERNAL | | | Manual | performed at [facility], [address] | | LAB | | | | [address], | | | | | | [place] [address] | | | | + + + + + + | Absolute | 3.85Comment: Testing | 1.90 - 7.40 | EXTERNAL | | | Neutrophils | performed at [facility], [address] | K/uL | LAB | | | | [address], | | | | | | [place] [address] | | | | + + + + + + | Bands | 0.09Comment: Testing | 0.00 - 0.20 | EXTERNAL | | | Manual | performed at [facility], [address] | K/uL | LAB | | | | [address], | | | | | | [place] [address] | | | | + + + + + + | Absolute | 3.01Comment: Testing | 1.00 - 3.90 | EXTERNAL | | | Lymphocytes | performed at [facility], [address] | K/uL | LAB | | | | [address], | | | | | | [place] [address] | | | | + + + + + + | Absolute | 0.95 (H)Comment: Testing | 0.00 - 0.80 | EXTERNAL | | | Monocytes | performed at [facility], [address] | [address]/uL | LAB | | | | [address], | | | | | | [place] [address] | | | | + + + + + + | Absolute | 0.69 (H)Comment: Testing | 0.00 - 0.50 | EXTERNAL | | | Eosinophils | performed at [facility], [address] | [address]/uL | LAB | | | | [address], | | | | | | [place] [address] | | | | + + + + + + | RBC | 2+Comment: MACRONORMAL | | EXTERNAL | | | Morphology | PLT MORPHTesting | | LAB | | | | performed at [facility], [address] | | | | | | [address], | | | | | | [place] [address] | | | | | | | [...] EXTERNAL | | | | performed at [facility], [address] | | LAB | | | | [facility], | | | | | | [place] [address] | | | | + + + [...] | | | | | [place] [address] | | | | + + + [...] mmol/L | LAB | | | | [address], | | | | | | [place] [address] | | | | + + + + + + | K | 3.2 (L)Comment: Testing | 3.5 - 4.9 | EXTERNAL | | | | performed at [facility], [address] | mmol/L | LAB | | | | [address], | | | | | | [place] [address] | | | | + + + + + + | Cl | 103Comment: Testing | 99 - 109 mmol/L | EXTERNAL | | | | performed at [facility], [address] | | LAB | | | | [address], | | | | | | [place] [address] | | | | + + + + + + | CO2 | 31Comment: Testing | 23 - 32 mmol/L | EXTERNAL | | | | performed at [facility], [address] | | LAB | | | | [address], | | | | | | [place] [address] | | | | + + + + + + | Anion Gap | 7Comment: Testing | 5 - 20 mmol/L | EXTERNAL | | | | performed at [facility], [address] | | LAB | | | | [address], | | | | | | [place] [address] | | | | + + + + + + | Glucose, | 104 (H)Comment: Testing | 65 - 99 mg/dL | EXTERNAL | | | Fasting | performed at [facility], [address] | | LAB | | | | [address], | | | | | | [place] [address] | | | | + + + + + + | BUN | 10Comment: Testing | 8 - 25 mg/dL | EXTERNAL | | | | performed at [facility], [address] | | LAB | | | | [address], | | | | | | [place] [address] | | | | + + + + + + | Creatinine | 0.83Comment: Testing | 0.50 - 1.00 | EXTERNAL | | | | performed at [facility], [address] | mg/dL | LAB | | | | [address], | | | | | | [place] [address] | | | | + + + + + + | BUN/Creatin | 12Comment: Testing | | EXTERNAL | | | ine Ratio | performed at [facility], [address] | | LAB | | | | [address], | | | | | | [place] [address] | | | | + + + + + + | Calcium | 8.2 (L)Comment: Testing | 8.5 - 10.5 | EXTERNAL | | | | performed at [facility], [address] | mg/dL | LAB | | | | [address], | | | | | | [place] [address] | | | | + + + + + + | Protein, | 6.2 (L)Comment: Testing | 6.3 - 8.2 g/dL | EXTERNAL | | | Total | performed at [facility], [address] | | LAB | | | | [address], | | | | | | [place] [address] | | | | + + + + + + | Albumin | 2.7 (L)Comment: Testing | 3.3 - 4.8 g/dL | EXTERNAL | | | | performed at [facility], [address] | | LAB | | | | [address], | | | | | | [place] [address] | | | | + + + + + + | Globulin | 3.5Comment: Testing | 1.3 - 4.9 g/dL | EXTERNAL | | | | performed at [facility], [address] | | LAB | | | | [address], | | | | | | [place] [address] | | | | + + + + + + | A/G Ratio | 0.8 (L)Comment: Testing | 1.0 - 2.4 | EXTERNAL | | | | performed at [facility], [address] | | LAB | | | | [address], | | | | | | [place] [address] | | | | + + + + + + | Bilirubin | 0.5Comment: Testing | 0.1 - 1.5 mg/dL | EXTERNAL | | | Total | performed at [facility], [address] | | LAB | | | | [address], | | | | | | [place] [address] | | | | + + + + + + | ALP, | 98Comment: Testing | 35 - 115 U/L | EXTERNAL | | | External | performed at [facility], [address] | | LAB | | | | [address], | | | | | | [place] [address] | | | | + + + + + + | AST | 35Comment: Testing | 10 - 45 U/L | EXTERNAL | | | | performed at [facility], [address] | | LAB | | | | [address], | | | | | | [place] [address] | | | | + + + + + + | ALT | 15Comment: Testing | 10 - 65 U/L | EXTERNAL | | | | performed at [facility], [address] | | LAB | | | | [address], | | | | | | [place] [address] | | | | + + + [...] | | | | | | at [facility], [address] | | | | | | [address], | | | | | | [place] [address] | | | | + + + [...] | | | | | [place] [address] | | | | + + + [...] | | | B-12 | performed at [facility], [address] | pg/mL | LAB | | | | [address], | | | | | | [place] [address] | | | | + + + [...] + +---------+ + + External Lab: [facility] (02/01/2015 3:26 AM PDT) + + + + + + | Component | Value | Ref Range | Performed | Pathologist | | | | | At | Signature | + + + + + + | WBC | 8.36Comment: Testing | 3.80 - 11.00 | EXTERNAL | | | | performed at [facility], [address] | K/uL | LAB | | | | [address], | | | | | | [place] [address] | | | | + + + + + + | Red Blood | 2.72 (L)Comment: Testing | 3.70 - 5.10 | EXTERNAL | | | Cells | performed at [facility], [address] | M/uL | LAB | | | Counted | [address], | | | | | | [place] [address] | | | | + + + + + + | Hemoglobin | 9.4 (L)Comment: Testing | 11.3 - 15.5 | EXTERNAL | | | | performed at [facility], [address] | g/dL | LAB | | | | [address], | | | | | | [place] [address] | | | | + + + + + + | Hematocrit, | 29.1 (L)Comment: Testing | 34.0 - 46.0 % | EXTERNAL | | | POC | performed at [facility], [address] | | LAB | | | | [address], | | | | | | [place] [address] | | | | + + + + + + | MCV | 107.3 (H)Comment: | 80.0 - 100.0 fl | EXTERNAL | | | | Testing performed at | | LAB | | | | [facility], [address] [facility] | | | | | | [place] | | | | | | [address] | | | | + + + + + + | MCH | 34.6 (H)Comment: Testing | 27.0 - 34.0 pg | EXTERNAL | | | | performed at [facility], [address] | | LAB | | | | [address], | | | | | | [place] [address] | | | | + + + + + + | MCHC | 32.2Comment: Testing | 32.0 - 35.5 | EXTERNAL | | | | performed at [facility], [address] | g/dL | LAB | | | | [address], | | | | | | [place] [address] | | | | + + + + + + | RDW-CV | 57.3 (H)Comment: Testing | 37 - 53 fl | EXTERNAL | | | | performed at [facility], [address] | | LAB | | | | [address], | | | | | | [place] [address] | | | | + + + + + + | Platelet | 174Comment: Testing | 150 - 400 K/uL | EXTERNAL | | | Count | performed at [facility], [address] | | LAB | | | Plasma | [address], | | | | | | [place] [address] | | | | + + + + + + | MPV | 10.9Comment: Testing | fl | EXTERNAL | | | | performed at [facility], [address] | | LAB | | | | [address], | | | | | | [place] [address] | | | | + + + + + + | Differentia | MANUALComment: Testing | | EXTERNAL | | | l Type | performed at [facility], [address] | | LAB | | | | [address], | | | | | | [place] [address] | | | | + + + + + + | Segmented | 45Comment: Testing | % | EXTERNAL | | | Neutrophils | performed at [facility], [address] | | LAB | | | Manual | [address], | | | | | | [place] [address] | | | | + + + + + + | % Bands | 1Comment: Testing | % | EXTERNAL | | | | performed at [facility], [address] | | LAB | | | | [address], | | | | | | [place] [address] | | | | + + + + + + | Lymphocytes | 34Comment: Testing | % | EXTERNAL | | | Manual | performed at [facility], [address] | | LAB | | | | [address], | | | | | | [place] [address] | | | | + + + + + + | Monocytes | 11Comment: Testing | % | EXTERNAL | | | Manual | performed at [facility], [address] | | LAB | | | | [address], | | | | | | [place] [address] | | | | + + + + + + | Eosinophils | 9Comment: Testing | % | EXTERNAL | | | Manual | performed at [facility], [address] | | LAB | | | | [address], | | | | | | [place] [address] | | | | + + + + + + | Absolute | 3.77Comment: Testing | 1.90 - 7.40 | EXTERNAL | | | Neutrophils | performed at [facility], [address] | K/uL | LAB | | | | [address], | | | | | | [place] [address] | | | | + + + + + + | Bands | 0.08Comment: Testing | 0.00 - 0.20 | EXTERNAL | | | Manual | performed at [facility], [address] | K/uL | LAB | | | | [address], | | | | | | [place] [address] | | | | + + + + + + | Absolute | 2.84Comment: Testing | 1.00 - 3.90 | EXTERNAL | | | Lymphocytes | performed at [facility], [address] | K/uL | LAB | | | | [address], | | | | | | [place] [address] | | | | + + + + + + | Absolute | 0.92 (H)Comment: Testing | 0.00 - 0.80 | EXTERNAL | | | Monocytes | performed at [facility], [address] | K/uL | LAB | | | | [address], | | | | | | [place] [address] | | | | + + + + + + | Absolute | 0.75 (H)Comment: Testing | 0.00 - 0.50 | EXTERNAL | | | Eosinophils | performed at [facility], [address] | K/uL | LAB | | | | [address], | | | | | | [place] [address] | | | | + + + + + + | RBC | NORMAL PLT MORPHComment: | | EXTERNAL | | | Morphology | NORMAL RBC MORPHTesting | | LAB | | | | performed at [facility], [address] | | | | | | [address], | | | | | | [place] [address] | | | | + + + [...] EXTERNAL | | | | performed at [facility], [address] | | LAB | | | | [address], | | | | | | [place] [address] | | | | + + + [...] | | | | | [place] [address] | | | | + + + [...] | | | | | [place] [address] | | | | + + + + + + | K | 3.8Comment: Testing | 3.5 - 4.9 | EXTERNAL | | | | performed at [facility], [address] | mmol/L | LAB | | | | [address], | | | | | | [place] [address] | | | | + + + + + + | Cl | 111 (H)Comment: Testing | 99 - 109 mmol/L | EXTERNAL | | | | performed at [facility], [address] | | LAB | | | | [address], | | | | | | [place] [address] | | | | + + + + + + | CO2 | 25Comment: Testing | 23 - 32 mmol/L | EXTERNAL | | | | performed at [facility], [address] | | LAB | | | | [address], | | | | | | [place] [address] | | | | + + + + + + | Anion Gap | 5Comment: Testing | 5 - 20 mmol/L | EXTERNAL | | | | performed at [facility], [address] | | LAB | | | | [address], | | | | | | [place] [address] | | | | + + + + + + | Glucose, | 112 (H)Comment: Testing | 65 - 99 mg/dL | EXTERNAL | | | Fasting | performed at [facility], [address] | | LAB | | | | [address], | | | | | | [place] [address] | | | | + + + + + + | BUN | 13Comment: Testing | 8 - 25 mg/dL | EXTERNAL | | | | performed at [facility], [address] | | LAB | | | | [address], | | | | | | [place] [address] | | | | + + + + + + | Creatinine | 0.74Comment: Testing | 0.50 - 1.00 | EXTERNAL | | | | performed at [facility], [address] | mg/dL | LAB | | | | [address], | | | | | | [place] [address] | | | | + + + + + + | BUN/Creatin | 18Comment: Testing | | EXTERNAL | | | ine Ratio | performed at [facility], [address] | | LAB | | | | [address], | | | | | | [place] [address] | | | | + + + + + + | Calcium | 8.0 (L)Comment: Testing | 8.5 - 10.5 | EXTERNAL | | | | performed at [facility], [address] | mg/dL | LAB | | | | [address], | | | | | | [place] [address] | | | | + + + + + + | Protein, | 5.9 (L)Comment: Testing | 6.3 - 8.2 g/dL | EXTERNAL | | | Total | performed at [facility], [address] | | LAB | | | | [address], | | | | | | [place] [address] | | | | + + + + + + | Albumin | 2.6 (L)Comment: Testing | 3.3 - 4.8 g/dL | EXTERNAL | | | | performed at [facility], [address] | | LAB | | | | [address], | | | | | | [place] [address] | | | | + + + + + + | Globulin | 3.3Comment: Testing | 1.3 - 4.9 g/dL | EXTERNAL | | | | performed at [facility], [address] | | LAB | | | | [address], | | | | | | [place] [address] | | | | + + + + + + | A/G Ratio | 0.8 (L)Comment: Testing | 1.0 - 2.4 | EXTERNAL | | | | performed at [facility], [address] | | LAB | | | | [address], | | | | | | [place] [address] | | | | + + + + + + | Bilirubin | 0.4Comment: Testing | 0.1 - 1.5 mg/dL | EXTERNAL | | | Total | performed at [facility], [address] | | LAB | | | | [address], | | | | | | [place] [address] | | | | + + + + + + | ALP, | 93Comment: Testing | 35 - 115 U/L | EXTERNAL | | | External | performed at [facility], [address] | | LAB | | | | [address], | | | | | | [place] [address] | | | | + + + + + + | AST | 23Comment: Testing | 10 - 45 U/L | EXTERNAL | | | | performed at [facility], [address] | | LAB | | | | [address], | | | | | | [place] [address] | | | | + + + + + + | ALT | 14Comment: Testing | 10 - 65 U/L | EXTERNAL | | | | performed at [facility], [address] | | LAB | | | | [facility], | | | | | | [place] [address] | | | | + + + [...] W | | | | | | [facility], | | | | | | [place] [address] | | | | + + + [...] | | | | | [place] [address] | | | | + + + + + + | Red Blood | 2.78 (L)Comment: Testing | 3.70 - 5.10 | EXTERNAL | | | Cells | performed at [facility], [address] | M/uL | LAB | | | Counted | [address], | | | | | | [place] [address] | | | | + + + + + + | Hemoglobin | 9.7 (L)Comment: Testing | 11.3 - 15.5 | EXTERNAL | | | | performed at [facility], [address] | g/dL | LAB | | | | [address], | | | | | | [place] [address] | | | | + + + + + + | Hematocrit, | 29.9 (L)Comment: Testing | 34.0 - 46.0 % | EXTERNAL | | | POC | performed at [facility], [address] | | LAB | | | | [address], | | | | | | [place] [address] | | | | + + + + + + | MCV | 107.5 (H)Comment: | 80.0 - 100.0 fl | EXTERNAL | | | | Testing performed at | | LAB | | | | [facility], [address] | | | | | | [place] | | | | | | [address] | | | | + + + + + + | MCH | 34.9 (H)Comment: Testing | 27.0 - 34.0 pg | EXTERNAL | | | | performed at [facility], [address] | | LAB | | | | [address], | | | | | | [place] [address] | | | | + + + + + + | MCHC | 32.5Comment: Testing | 32.0 - 35.5 | EXTERNAL | | | | performed at [facility], [address] | g/dL | LAB | | | | [address], | | | | | | [place] [address] | | | | + + + + + + | RDW-CV | 57.3 (H)Comment: Testing | 37 - 53 fl | EXTERNAL | | | | performed at [facility], [address] | | LAB | | | | [address], | | | | | | [place] [address] | | | | + + + + + + | Platelet | 162Comment: Testing | 150 - 400 K/uL | EXTERNAL | | | Count | performed at [facility], [address] | | LAB | | | Plasma | [address], | | | | | | [place] [address] | | | | + + + + + + | MPV | 11.6Comment: Testing | fl | EXTERNAL | | | | performed at [facility], [address] | | LAB | | | | [address], | | | | | | [place] [address] | | | | + + + + + + | Differentia | MANUALComment: Testing | | EXTERNAL | | | l Type | performed at [facility], [address] | | LAB | | | | [address], | | | | | | [place] [address] | | | | + + + + + + | Segmented | 31Comment: Testing | % | EXTERNAL | | | Neutrophils | performed at [facility], [address] | | LAB | | | Manual | [address], | | | | | | [place] [address] | | | | + + + + + + | Lymphocytes | 52Comment: Testing | % | EXTERNAL | | | Manual | performed at [facility], [address] | | LAB | | | | [address], | | | | | | [place] [address] | | | | + + + + + + | Monocytes | 11Comment: Testing | % | EXTERNAL | | | Manual | performed at [facility], [address] | | LAB | | | | [address], | | | | | | [place] [address] | | | | + + + + + + | Eosinophils | 6Comment: Testing | % | EXTERNAL | | | Manual | performed at [facility], [address] | | LAB | | | | [address], | | | | | | [place] [address] | | | | + + + + + + | Absolute | 3.19Comment: Testing | 1.90 - 7.40 | EXTERNAL | | | Neutrophils | performed at [facility], [address] | K/uL | LAB | | | | [address], | | | | | | [place] [address] | | | | + + + + + + | Absolute | 5.36 (H)Comment: Testing | 1.00 - 3.90 | EXTERNAL | | | Lymphocytes | performed at [facility], [address] | K/uL | LAB | | | | [address], | | | | | | [place] [address] | | | | + + + + + + | Absolute | 1.13 (H)Comment: Testing | 0.00 - 0.80 | EXTERNAL | | | Monocytes | performed at [facility], [address] | [address]/uL | LAB | | | | [address], | | | | | | [place] [address] | | | | + + + + + + | Absolute | 0.62 (H)Comment: Testing | 0.00 - 0.50 | EXTERNAL | | | Eosinophils | performed at [facility], [address] | K/uL | LAB | | | | [address], | | | | | | [place] [address] | | | | + + + + + + | RBC | 2+Comment: MACRONORMAL | | EXTERNAL | | | Morphology | PLT MORPHTesting | | LAB | | | | performed at [facility], [address] | | | | | | [address], | | | | | | [place] [address] | | | | | | | [...] EXTERNAL | | | | performed at [facility], [address] | | LAB | | | | [address], | | | | | | [place] [address] | | | | + + + [...] EXTERNAL | | | | performed at [facility], [address] | | LAB | | | | [address], | | | | | | [place] [address] | | | | + + + [...] | | | | | [place] [address] | | | | + + + + + + | K | 4.2Comment: Testing | 3.5 - 4.9 | EXTERNAL | | | | performed at [facility], [address] | mmol/L | LAB | | | | [address], | | | | | | [place] [address] | | | | + + + + + + | Cl | 112 (H)Comment: Testing | 99 - 109 mmol/L | EXTERNAL | | | | performed at [facility], [address] | | LAB | | | | [address], | | | | | | [place] [address] | | | | + + + + + + | CO2 | 27Comment: Testing | 23 - 32 mmol/L | EXTERNAL | | | | performed at [facility], [address] | | LAB | | | | [address], | | | | | | [place] [address] | | | | + + + + + + | Anion Gap | 4 (L)Comment: Testing | 5 - 20 mmol/L | EXTERNAL | | | | performed at [facility], [address] | | LAB | | | | [address], | | | | | | [place] [address] | | | | + + + + + + | Glucose, | 94Comment: Testing | 65 - 99 mg/dL | EXTERNAL | | | Fasting | performed at [facility], [address] | | LAB | | | | [address], | | | | | | [place] [address] | | | | + + + + + + | BUN | 19Comment: Testing | 8 - 25 mg/dL | EXTERNAL | | | | performed at [facility], [address] | | LAB | | | | [address], | | | | | | [place] [address] | | | | + + + + + + | Creatinine | 1.01 (H)Comment: Testing | 0.50 - 1.00 | EXTERNAL | | | | performed at [facility], [address] | mg/dL | LAB | | | | [address], | | | | | | [place] [address] | | | | + + + + + + | BUN/Creatin | 19Comment: Testing | | EXTERNAL | | | ine Ratio | performed at [facility], [address] | | LAB | | | | [address], | | | | | | [place] [address] | | | | + + + + + + | Calcium | 8.1 (L)Comment: Testing | 8.5 - 10.5 | EXTERNAL | | | | performed at [facility], [address] | mg/dL | LAB | | | | [address], | | | | | | [place] [address] | | | | + + + + + + | Protein, | 5.9 (L)Comment: Testing | 6.3 - 8.2 g/dL | EXTERNAL | | | Total | performed at [facility], [address] | | LAB | | | | [address], | | | | | | [place] [address] | | | | + + + + + + | Albumin | 2.5 (L)Comment: Testing | 3.3 - 4.8 g/dL | EXTERNAL | | | | performed at [facility], [address] | | LAB | | | | [address], | | | | | | [place] [address] | | | | + + + + + + | Globulin | 3.4Comment: Testing | 1.3 - 4.9 g/dL | EXTERNAL | | | | performed at [facility], [address] | | LAB | | | [address], | | | | | | [place] [address] | | | | + + + + + + | A/G Ratio | 0.7 (L)Comment: Testing | 1.0 - 2.4 | EXTERNAL | | | | performed at [facility], [address] | | LAB | | | [address], | | | | | | [place] [address] | | | | + + + + + + | Bilirubin | 0.3Comment: Testing | 0.1 - 1.5 mg/dL | EXTERNAL | | | Total | performed at [facility], [address] | | LAB | | | | [address], | | | | | | [place] [address] | | | | + + + + + + | ALP, | 98Comment: Testing | 35 - 115 U/L | EXTERNAL | | | External | performed at [facility], [address] | | LAB | | | | [address], | | | | | | [place] [address] | | | | + + + + + + | AST | 24Comment: Testing | 10 - 45 U/L | EXTERNAL | | | | performed at [facility], [address] | | LAB | | | | [address], | | | | | | [place] [address] | | | | + + + + + + | ALT | 14Comment: Testing | 10 - 65 U/L | EXTERNAL | | | | performed at [facility], [address] | | LAB | | | | [address], | | | | | | [place] [address] | | | | + + + [...] | | | | | | at [facility], [address] | | | | | | [address], | | | | | | [place] [address] | | | | + + + [...] L | LAB | | | | [facility], [address] [facility] | | | | | | [place] | | | | | | [address] | | | | + + +---- + + + | Red Blood | 2.93 (L)Comment: Testing | 3.7 0 - 5.10 | EXTERNAL | | | Cells | performed at [facility], [address] | M/u L | LAB | | | Counted | [address], | | | | | | [place] [address] | | | | + + +---- + + + | Hemoglobin | 10.2 (L)Comment: Testing | 11. 3 - 15.5 | EXTERNAL | | | | performed at [facility], [address] | g/d L | LAB | | | | [address], | | | | | | [place] [address] | | | | + + +---- + + + | Hematocrit, | 31.6 (L)Comment: Testing | 34. 0 - 46.0 % | EXTERNAL | | | POC | performed at [facility], [address] | | LAB | | | | [address], | | | | | | [place] [address] | | | | + + +---- + + + | MCV | 107.8 (H)Comment: | 80. 0 - 100.0 fl | EXTERNAL | | | | Testing performed at | | LAB | | | | [facility], [address] | | | | | | [place] | | | | | | [address] | | | | + + +---- + + + | MCH | 34.8 (H)Comment: Testing | 27. 0 - 34.0 pg | EXTERNAL | | | | performed at [facility], [address] | | LAB | | | | [address], | | | | | | [place] [address] | | | | + + +---- + + + | MCHC | 32.3Comment: Testing | 32. 0 - 35.5 | EXTERNAL | | | | performed at [facility], [address] | g/d L | LAB | | | | [address], | | | | | | [place] [address] | | | | + + +---- + + + | RDW-CV | 57.3 (H)Comment: Testing | 37 - 53 fl | EXTERNAL | | | | performed at [facility], [address] | | LAB | | | | [address], | | | | | | [place] [address] | | | | + + +---- + + + | Platelet | 146 (L)Comment: Testing | 150 - 400 K/uL | EXTERNAL | | | Count | performed at [facility], [address] | | LAB | | | Plasma | [address], | | | | | | [place] [address] | | | | + + +---- + + + | MPV | 11.2Comment: Testing | fl | EXTERNAL | | | | performed at [facility], [address] | | LAB | | | | [address], | | | | | | [place] [address] | | | | + + +---- + + + | Differentia | MANUALComment: Testing | | EXTERNAL | | | l Type | performed at [facility], [address] | | LAB | | | | [address], | | | | | | [place] [address] | | | | + + +---- + + + | Segmented | 58Comment: Testing | % | EXTERNAL | | | Neutrophils | performed at [facility], [address] | | LAB | | | Manual | [address], | | | | | | [place] [address] | | | | + + +---- + + + | % Bands | 20Comment: Testing | % | EXTERNAL | | | | performed at [facility], [address] | | LAB | | | | [address], | | | | | | [place] [address] | | | | + + +---- + + + | Lymphocytes | 13Comment: Testing | % | EXTERNAL | | | Manual | performed at [facility], [address] | | LAB | | | | [address], | | | | | | [place] [address] | | | | + + +---- + + + | Monocytes | 7Comment: Testing | % | EXTERNAL | | | Manual | performed at [facility], [address] | | LAB | | | | [address], | | | | | | [place] [address] | | | | + + +---- + + + | Eosinophils | 2Comment: Testing | % | EXTERNAL | | | Manual | performed at [facility], [address] | | LAB | | | | [address], | | | | | | [place] [address] | | | | + + +---- + + + | Absolute | 9.23 (H)Comment: Testing | 1.9 0 - 7.40 | EXTERNAL | | | Neutrophils | performed at [facility], [address] | [address] | LAB | | | | [address], | | | | | | [place] [address] | | | | + + +---- + + + | Bands | 3.18 (H)Comment: Testing | 0.0 0 - 0.20 | EXTERNAL | | | Manual | performed at [facility], [address] | K/[address] L | LAB | | | | [address], | | | | | | [place] [address] | | | | + + +---- + + + | Absolute | 2.07Comment: Testing | 1.0 0 - 3.90 | EXTERNAL | | | Lymphocytes | performed at [facility], [address] | K/u L | LAB | | | | [address], | | | | | | [place] [address] | | | | + + +---- + + + | Absolute | 1.11 (H)Comment: Testing | 0.0 0 - 0.80 | EXTERNAL | | | Monocytes | performed at [facility], [address] | [address] | LAB | | | | [address], | | | | | | [place] [address] | | | | + + +---- + + + | Absolute | 0.32Comment: Testing | 0.0 0 - 0.50 | EXTERNAL | | | Eosinophils | performed at [facility], [address] | K/u L | LAB | | | | [address], | | | | | | [place] [address] | | | | + + +---- + + + | RBC | 2+Comment: | | EXTERNAL | | | Morphology | MACRO1+ANISONORMAL PLT | | LAB | | | | MORPHTesting performed | | | | | | at [facility], [address] | | | | | | [address], | | | | | | [place] [address] | | | | | |Testing performed at [facility], [address] [facility] [place] [address] | | | | | | | [...] EXTERNAL | | | | performed at [facility], [address] | | LAB | | | | [address], | | | | | | [place] [address] | | | | + + + [...] EXTERNAL | | | | performed at [facility], [address] | | LAB | | | | [address], | | | | | | [place] [address] | | | | + + + [...] | | | | | [place] [address] | | | | + + + + + + | K | 3.9Comment: Testing | 3.5 - 4.9 | EXTERNAL | | | | performed at [facility], [address] | mmol/L | LAB | | | | [address], | | | | | | [place] [address] | | | | + + + + + + | Cl | 109Comment: Testing | 99 - 109 mmol/L | EXTERNAL | | | | performed at [facility], [address] | | LAB | | | | [address], | | | | | | [place] [address] | | | | + + + + + + | CO2 | 24Comment: Testing | 23 - 32 mmol/L | EXTERNAL | | | | performed at [facility], [address] | | LAB | | | | [address], | | | | | | [place] [address] | | | | + + + + + + | Anion Gap | 8Comment: Testing | 5 - 20 mmol/L | EXTERNAL | | | | performed at [facility], [address] | | LAB | | | | [address], | | | | | | [place] [address] | | | | + + + + + + | Glucose, | 98Comment: Testing | 65 - 99 mg/dL | EXTERNAL | | | Fasting | performed at [facility], [address] | | LAB | | | | [address], | | | | | | [place] [address] | | | | + + + + + + | BUN | 25Comment: Testing | 8 - 25 mg/dL | EXTERNAL | | | | performed at [facility], [address] | | LAB | | | | [address], | | | | | | [place] [address] | | | | + + + + + + | Creatinine | 1.39 (H)Comment: Testing | 0.50 - 1.00 | EXTERNAL | | | | performed at [facility], [address] | mg/dL | LAB | | | | [address], | | | | | | [place] [address] | | | | + + + + + + | BUN/Creatin | 18Comment: Testing | | EXTERNAL | | | ine Ratio | performed at [facility], [address] | | LAB | | | | [address], | | | | | | [place] [address] | | | | + + + + + + | Calcium | 8.2 (L)Comment: Testing | 8.5 - 10.5 | EXTERNAL | | | | performed at [facility], [address] | mg/dL | LAB | | | [address], | | | | | | [place] [address] | | | | + + + + + + | Protein, | 6.1 (L)Comment: Testing | 6.3 - 8.2 g/dL | EXTERNAL | | | Total | performed at [facility], [address] | | LAB | | | [address], | | | | | | [place] [address] | | | | + + + + + + | Albumin | 2.4 (L)Comment: Testing | 3.3 - 4.8 g/dL | EXTERNAL | | | | performed at [facility], [address] | | LAB | | | | [address], | | | | | | [place] [address] | | | | + + + + + + | Globulin | 3.7Comment: Testing | 1.3 - 4.9 g/dL | EXTERNAL | | | | performed at [facility], [address] | | LAB | | | | [address], | | | | | | [place] [address] | | | | + + + + + + | A/G Ratio | 0.6 (L)Comment: Testing | 1.0 - 2.4 | EXTERNAL | | | | performed at [facility], [address] | | LAB | | | | [address], | | | | | | [place] [address] | | | | + + + + + + | Bilirubin | 0.4Comment: Testing | 0.1 - 1.5 mg/dL | EXTERNAL | | | Total | performed at [facility], [address] | | LAB | | | | [address], | | | | | | [place] [address] | | | | + + + + + + | ALP, | 111Comment: Testing | 35 - 115 U/L | EXTERNAL | | | External | performed at [facility], [address] | | LAB | | | | [address], | | | | | | [place] [address] | | | | + + + + + + | AST | 29Comment: Testing | 10 - 45 U/L | EXTERNAL | | | | performed at [facility], [address] | | LAB | | | | [address], | | | | | | [place] [address] | | | | + + + + + + | ALT | 14Comment: Testing | 10 - 65 U/L | EXTERNAL | | | | performed at [facility], [address] | | LAB | | | | [address], | | | | | | [place] [address] | | | | + + + [...] | | | | | [place] [address] | | | | + + + [...] K/uL | LAB | | | | [facility], [address] [facility] | | | | | | [place] | | | | | | [address] | | | | + + + + + + | Red Blood | 3.12 (L)Comment: Testing | 3.70 - 5.10 | EXTERNAL | | | Cells | performed at [facility], [address] | M/uL | LAB | | | Counted | [address], | | | | | | [place] [address] | | | | + + + + + + | Hemoglobin | 10.8 (L)Comment: Testing | 11.3 - 15.5 | EXTERNAL | | | | performed at [facility], [address] | g/dL | LAB | | | | [address], | | | | | | [place] [address] | | | | + + + + + + | Hematocrit, | 33.7 (L)Comment: Testing | 34.0 - 46.0 % | EXTERNAL | | | POC | performed at [facility], [address] | | LAB | | | | [address], | | | | | | [place] [address] | | | | + + + + + + | MCV | 108.0 (H)Comment: | 80.0 - 100.0 fl | EXTERNAL | | | | Testing performed at | | LAB | | | | [facility], [address] [facility] | | | | | | [place] | | | | | | [address] | | | | + + + + + + | MCH | 34.7 (H)Comment: Testing | 27.0 - 34.0 pg | EXTERNAL | | | | performed at [facility], [address] | | LAB | | | | [address], | | | | | | [place] [address] | | | | + + + + + + | MCHC | 32.1Comment: Testing | 32.0 - 35.5 | EXTERNAL | | | | performed at [facility], [address] | g/dL | LAB | | | | [address], | | | | | | [place] [address] | | | | + + + + + + | RDW-CV | 55.6 (H)Comment: Testing | 37 - 53 fl | EXTERNAL | | | | performed at [facility], [address] | | LAB | | | | [address], | | | | | | [place] [address] | | | | + + + + + + | Platelet | 153Comment: Testing | 150 - 400 K/uL | EXTERNAL | | | Count | performed at [facility], [address] | | LAB | | | Plasma | [address], | | | | | | [place] [address] | | | | + + + + + + | MPV | 11.2Comment: Testing | fl | EXTERNAL | | | | performed at [facility], [address] | | LAB | | | | [address], | | | | | | [place] [address] | | | | + + + + + + | Differentia | MANUALComment: Testing | | EXTERNAL | | | l Type | performed at [facility], [address] | | LAB | | | | [address], | | | | | | [place], [place] [address] | | | | + + + + + + | Segmented | 64Comment: Testing | % | EXTERNAL | | | Neutrophils | performed at [facility], [address] | | LAB | | | Manual | [address], | | | | | | [place] [address] | | | | + + + + + + | % Bands | 15Comment: Testing | % | EXTERNAL | | | | performed at [facility], [address] | | LAB | | | | [address], | | | | | | [place] [address] | | | | + + + + + + | % | 2Comment: Testing | % | EXTERNAL | | | Metamyelocy | performed at [facility], [address] | | LAB | | | [address]ma | [address], | | | | | | [place] [address] | | | | + + + + + + | Lymphocytes | 12Comment: Testing | % | EXTERNAL | | | Manual | performed at [facility], [address] | | LAB | | | | [address] [place], | | | | | | [place] [address] | | | | + + + + + + | Monocytes | 6Comment: Testing | % | EXTERNAL | | | Manual | performed at [facility], [address] | | LAB | | | | [address], | | | | | | [place] [address] | | | | + + + + + + | Eosinophils | 1Comment: Testing | % | EXTERNAL | | | Manual | performed at [facility], [address] | | LAB | | | | [address], | | | | | | [place] [address] | | | | + + + + + + | Absolute | 11.48 (H)Comment: | 1.90 - 7.40 | EXTERNAL | | | Neutrophils | Testing performed at | K/uL | LAB | | | | [facility], [address] [facility] | | | | | | [place] | | | | | | [address] | | | | + + + + + + | Bands | 2.69 (H)Comment: Testing | 0.00 - 0.20 | EXTERNAL | | | Manual | performed at [facility], [address] | K/uL | LAB | | | | [address], | | | | | | [place] [address] | | | | + + + + + + | Absolute | 0.36 (H)Comment: Testing | K/uL | EXTERNAL | | | Metamyelocy | performed at [facility], [address] | | LAB | | | irma | [address], | | | | | | [place] [address] | | | | + + + + + + | Absolute | 2.15Comment: Testing | 1.00 - 3.90 | EXTERNAL | | | Lymphocytes | performed at [facility], [address] | K/uL | LAB | | | | [address], | | | | | | [place] [address] | | | | + + + + + + | Absolute | 1.08 (H)Comment: Testing | 0.00 - 0.80 | EXTERNAL | | | Monocytes | performed at [facility], [address] | K/uL | LAB | | | | [address], | | | | | | [place] [address] | | | | + + + + + + | Absolute | 0.18Comment: Testing | 0.00 - 0.50 | EXTERNAL | | | Eosinophils | performed at [facility], [address] | K/uL | LAB | | | | [address], | | | | | | [place] [address] | | | | + + + + + + | RBC | 2+Comment: MACRONORMAL | | EXTERNAL | | | Morphology | PLT MORPHTesting | | LAB | | | | performed at [facility], [address] | | | | | | [address], | | | | | | [place] [address] | | | | | | | [...] EXTERNAL | | | | performed at [facility];888 | mmol/L | LAB | | | | [address];[place] | | | | | | [address] | | | | + + + + + + | K | 3.8Comment: Testing | 3.5 - 4.9 | EXTERNAL | | | | performed at [facility];888 | mmol/L | LAB | | | | [address];[place] | | | | | | [address] | | | | + + + + + + | Cl | 107Comment: Testing | 99 - 109 mmol/L | EXTERNAL | | | | performed at [facility];[address] | | LAB | | | | [address];[place] | | | | | | [address] | | | | + + + + + + | CO2 | 26Comment: Testing | 23 - 32 mmol/L | EXTERNAL | | | | performed at [facility];[address] | | LAB | | | | [address];[place] | | | | | | [address] | | | | + + + + + + | Anion Gap | 12Comment: Testing | 5 - 20 mmol/L | EXTERNAL | | | | performed at [facility];[address] | | LAB | | | | [address];[place] | | | | | | [address] | | | | + + + + + + | Glucose, | 127 (H)Comment: Testing | 65 - 99 mg/dL | EXTERNAL | | | Fasting | performed at [facility];[address] | | LAB | | | | [address];[place] | | | | | | [address] | | | | + + + + + + | BUN | 28 (H)Comment: Testing | 8 - 25 mg/dL | EXTERNAL | | | | performed at [facility];[address] | | LAB | | | | [address];[place] | | | | | | [address] | | | | + + + + + + | Creatinine | 1.8 (H)Comment: Testing | 0.50 - 1.00 | EXTERNAL | | | | performed at [facility];888 | mg/dL | LAB | | | | [address];[place] | | | | | | [address] | | | | + + + + + + | BUN/Creatin | 16Comment: Testing | | EXTERNAL | | | ine Ratio | performed at [facility];[address] | | LAB | | | | [address];[place] | | | | | | [address] | | | | + + + + + + | Calcium | 7.6 (L)Comment: Testing | 8.5 - 10.5 | EXTERNAL | | | | performed at [facility];888 | mg/dL | LAB | | | | [address];[place], [place] | | | | | | [address] | | | | + + + [...] | | | | | | at [facility];[address] [place] [address] | | | | | | Blvd;[place] [address] | | | | + + + [...] Blake - 01/05/2019 4:32 AM PDT COLE HARVEYEVELYN FOOT LEFT HISTORY:69 | | years. Female. [...] | | | | | | at [facility];[address] [place] [address] | | | | | | Blvd;[place] [address] | | | | + + + [...] L | LAB | | | | [facility], [address] | | | | | | [place] | | | | | | [address] | | | | + + +---- + + + | Red Blood | 3.07 (L)Comment: Testing | 3.7 0 - 5.10 | EXTERNAL | | | Cells | performed at [facility], [address] | M/u L | LAB | | | Counted | [address] [place], | | | | | | [place] [address] | | | | + + +---- + + + | Hemoglobin | 10.8 (L)Comment: Testing | 11. 3 - 15.5 | EXTERNAL | | | | performed at [facility], [address] | g/d L | LAB | | | | [address] [place], | | | | | | [place] [address] | | | | + + +---- + + + | Hematocrit, | 32.7 (L)Comment: Testing | 34. 0 - 46.0 % | EXTERNAL | | | POC | performed at [facility], [address] | | LAB | | | | [address], | | | | | | [place] [address] | | | | + + +---- + + + | MCV | 106.4 (H)Comment: | 80. 0 - 100.0 fl | EXTERNAL | | | | Testing performed at | | LAB | | | | [facility], [address] | | | | | | [place] | | | | | | [address] | | | | + + +---- + + + | MCH | 35.1 (H)Comment: Testing | 27. 0 - 34.0 pg | EXTERNAL | | | | performed at [facility], [address] | | LAB | | | | [address] [place], | | | | | | [place] [address] | | | | + + +---- + + + | MCHC | 33.0Comment: Testing | 32. 0 - 35.5 | EXTERNAL | | | | performed at [facility], [address] | g/d L | LAB | | | | [address] [place], | | | | | | [place] [address] | | | | + + +---- + + + | RDW-CV | 56.0 (H)Comment: Testing | 37 - 53 fl | EXTERNAL | | | | performed at [facility], [address] | | LAB | | | | [address] [place], | | | | | | [place] [address] | | | | + + +---- + + + | Platelet | 151Comment: Testing | 150 - 400 K/uL | EXTERNAL | | | Count | performed at [facility], [address] | | LAB | | | Plasma | [address] [place], | | | | | | [place] [address] | | | | + + +---- + + + | MPV | 11.7Comment: Testing | fl | EXTERNAL | | | | performed at [facility], [address] | | LAB | | | | [address], | | | | | | [place] [address] | | | | + + +---- + + + | Differentia | MANUALComment: Testing | | EXTERNAL | | | l Type | performed at [facility], [address] | | LAB | | | | [address], | | | | | | [place] [address] | | | | + + +---- + + + | Segmented | 57Comment: Testing | % | EXTERNAL | | | Neutrophils | performed at [facility], [address] | | LAB | | | Manual | [address] Santamaria, | | | | | | [place] [address] | | | | + + +---- + + + | % Bands | 26Comment: Testing | % | EXTERNAL | | | | performed at [facility], [address] | | LAB | | | | [address], | | | | | | [place] [address] | | | | + + +---- + + + | % | 4Comment: Testing | % | EXTERNAL | | | Metamyelocy | performed at [facility], [address] | | LAB | | | [address] | [address], | | | | | | [place] [address] | | | | + + +---- + + + | Lymphocytes | 9Comment: Testing | % | EXTERNAL | | | Manual | performed at [facility], [address] | | LAB | | | | [address], | | | | | | [place] [address] | | | | + + +---- + + + | Monocytes | 4Comment: Testing | % | EXTERNAL | | | Manual | performed at [facility], [address] | | LAB | | | | [facility], | | | | | | [place] [address] | | | | + + +---- + + + | Absolute | 10.53 (H)Comment: | 1.9 0 - 7.40 | EXTERNAL | | | Neutrophils | Testing performed at | K/u L | LAB | | | | [facility], [address] | | | | | | [place] | | | | | | [address] | | | | + + +---- + + + | Bands | 4.80 (H)Comment: Testing | 0.0 0 - 0.20 | EXTERNAL | | | Manual | performed at [facility], [address] | [address] | LAB | | | | [address], | | | | | | [place] [address] | | | | + + +---- + + + | Absolute | 0.74 (H)Comment: Testing | K/u L | EXTERNAL | | | Metamyelocy | performed at [facility], [address] | | LAB | | | [address] | [address], | | | | | | [place] [address] | | | | + + +---- + + + | Absolute | 1.66Comment: Testing | 1.0 0 - 3.90 | EXTERNAL | | | Lymphocytes | performed at [facility], [address] | K/u L | LAB | | | | [address], | | | | | | [place] [address] | | | | + + +---- + + + | Absolute | 0.74Comment: Testing | 0.0 0 - 0.80 | EXTERNAL | | | Monocytes | performed at [facility], [address] | K/u L | LAB | | | | [address] Sant[address], | | | | | | [place] [address] | | | | + + +---- + + + | RBC | 2+Comment: | | EXTERNAL | | | Morphology | MACRO1+ANISONORMAL PLT | | LAB | | | | MORPHTesting performed | | | | | | at [facility], [address] | | | | | | [address] Santamaria, | | | | | | [place] [address] | | | | | |Testing performed at [facility], [address] [place] [address] | | | | | | | [...] EXTERNAL | | | | performed at [facility];[address] | | LAB | | | | [address];[place], [place] | | | | | | [address] | | | | + + + [...] | | | | | performed at [facility];[address] | | | | | | [address];[place], [place] | | | | | | [address] | | | | + + + [...] EXTERNAL | | | | performed at [facility];888 | mmol/L | LAB | | | | [address] Santamaria;[place] | | | | | | [address] | | | | + + + [...] EXTERNAL | | | | performed at [facility];[address] | mmol/L | LAB | | | | [address];[place] | | | | | | [address] | | | | + + + + + + | K | 4.4Comment: SPECIMEN | 3.5 - 4.9 | EXTERNAL | | | | SLIGHTLY | mmol/L | LAB | | | | HEMOLYZEDTesting | | | | | | performed at [facility];[address] | | | | | | [address];[place] | | | | | | [address] | | | | + + + + + + | Cl | 106Comment: Testing | 99 - 109 mmol/L | EXTERNAL | | | | performed at [facility];[address] | | LAB | | | | [address];[place] | | | | | | [address] | | | | + + + + + + | CO2 | 24Comment: Testing | 23 - 32 mmol/L | EXTERNAL | | | | performed at [facility];[address] | | LAB | | | | [address];[place] | | | | | | [address] | | | | + + + + + + | Anion Gap | 12Comment: Testing | 5 - 20 mmol/L | EXTERNAL | | | | performed at [facility];[address] | | LAB | | | | [address];[place] | | | | | | [address] | | | | + + + + + + | Glucose, | 103 (H)Comment: Testing | 65 - 99 mg/dL | EXTERNAL | | | Fasting | performed at [facility];[address] | | LAB | | | | [address];[place] | | | | | | [address] | | | | + + + + + + | BUN | 22Comment: Testing | 8 - 25 mg/dL | EXTERNAL | | | | performed at [facility];[address] | | LAB | | | | [address];[place] | | | | | | [address] | | | | + + + + + + | Creatinine | 1.9 (H)Comment: Testing | 0.50 - 1.00 | EXTERNAL | | | | performed at [facility];888 | mg/dL | LAB | | | | [address];[place] | | | | | | [address] | | | | + + + + + + | BUN/Creatin | 12Comment: Testing | | EXTERNAL | | | ine Ratio | performed at [facility];[address] | | LAB | | | | [address];[place] | | | | | | [address] | | | | + + + + + + | Calcium | 7.4 (L)Comment: Testing | 8.5 - 10.5 | EXTERNAL | | | | performed at [facility];888 | mg/dL | LAB | | | | [address];[place] | | | | | | [address] | | | | + + + + + + | Protein, | 6.5Comment: Testing | 6.3 - 8.2 g/dL | EXTERNAL | | | Total | performed at [facility];[address] | | LAB | | | | [address];[place] | | | | | | [address] | | | | + + + + + + | Albumin | 2.2 (L)Comment: Testing | 3.3 - 4.8 g/dL | EXTERNAL | | | | performed at [facility];[address] | | LAB | | | | [address];[place] | | | | | | [address] | | | | + + + + + + | Globulin | 4.4Comment: Testing | 1.3 - 4.9 g/dL | EXTERNAL | | | | performed at [facility];[address] | | LAB | | | | [address];[place] | | | | | | [address] | | | | + + + + + + | A/G Ratio | 0.5 (L)Comment: Testing | 1.0 - 2.4 | EXTERNAL | | | | performed at [facility];[address] | | LAB | | | | [address];[place] | | | | | | [address] | | | | + + + + + + | Bilirubin | 0.5Comment: Testing | 0.1 - 1.5 mg/dL | EXTERNAL | | | Total | performed at [facility];[address] | | LAB | | | | [address];[place] | | | | | | [address] | | | | + + + + + + | ALP, | 148 (H)Comment: Testing | 35 - 115 U/L | EXTERNAL | | | External | performed at [facility];[address] | | LAB | | | | [address];[place] | | | | | | [address] | | | | + + + + + + | AST | 41Comment: SPECIMEN | 10 - 45 U/L | EXTERNAL | | | | SLIGHTLY | | LAB | | | | HEMOLYZEDTesting | | | | | | performed at [facility];[address] | | | | | | [address];[place] | | | | | | [address] | | | | + + + + + + | ALT | 23Comment: Testing | 10 - 65 U/L | EXTERNAL | | | | performed at [facility];[address] | | LAB | | | | [facility];[place], [place] | | | | | | [address] | | | | + + + [...] | | | | | | at [facility];[address] [facility] | | | | | | vd;[place] [address] | | | | + + + [...] WORKUP | | | Testing performed at [facility], [address], [place] | | | [address] | | + + + + +---------+ [...] | | | | | | [place] [address] | | | | + + + + + + | Clarity | CLOUDYComment: Testing | | EXTERNAL | | | | performed at [facility], [address] | | LAB | | | | [address], | | | | | | [place] [address] | | | | + + + + + + | Specific | 1.015Comment: Testing | 1.002 - 1.030 | EXTERNAL | | | [place], | performed at [facility], [address] | | LAB | | | Urine | [address], | | | | | | [place] [address] | | | | + + + + + + | Leukocyte | SMALL (A)Comment: | | EXTERNAL | | | Esterase, | Testing performed at | | LAB | | | Urine | [facility] [address] [facility] | | | | | | [place] | | | | | | [address] | | | | + + + + + + | Nitrite, | NEGATIVEComment: Testing | | EXTERNAL | | | Urine | performed at [facility], [address] | | LAB | | | | [address], | | | | | | [place] [address] | | | | + + + + + + | Urobilinoge | 0.2Comment: Testing | mg/dL | EXTERNAL | | | n, Urine | performed at [facility], [address] | | LAB | | | | [address], | | | | | | [place] [address] | | | | + + + + + + | Protein, | 100 (A)Comment: Testing | mg/dL | EXTERNAL | | | Urine | performed at [facility], [address] | | LAB | | | | [address], | | | | | | [place] [address] | | | | + + + + + + | pH, Urine | 6.5Comment: Testing | 5.0 - 8.0 | EXTERNAL | | | | performed at [facility], [address] | | LAB | | | | [address], | | | | | | [place] [address] | | | | + + + + + + | Blood, | MODERATE (A)Comment: | | EXTERNAL | | | Urine | Testing performed at | | LAB | | | | [facility], [address] [facility] | | | | | | [place] | | | | | | [address] | | | | + + + + + + | Ketones | NEGATIVEComment: Testing | mg/dL | EXTERNAL | | | | performed at [facility], [address] | | LAB | | | | [address], | | | | | | [place] [address] | | | | + + + + + + | Bilirubin, | NEGATIVEComment: Testing | | EXTERNAL | | | Urine | performed at [facility], [address] | | LAB | | | | [address], | | | | | | [place] [address] | | | | + + + + + + | Glucose, | NEGATIVEComment: Testing | mg/dL | EXTERNAL | | | Urine | performed at [facility], [address] | | LAB | | | | [address], | | | | | | [place] [address] | | | | + + + [...] | | | | | [place] [address] | | | | + + + + + + | RBC, UA | 1-5Comment: Testing | 0 - 5 /hpf | EXTERNAL | | | | performed at [facility], [address] | | LAB | | | | [address], | | | | | | [place] [address] | | | | + + + + + + | Epithelial | 0-2Comment: Testing | /lpf | EXTERNAL | | | Cells | performed at [facility], [address] | | LAB | | | | [address], | | | | | | [place] [address] | | | | + + + + + + | Bacteria, | TRACE (A)Comment: | | EXTERNAL | | | UA | Testing performed at | | LAB | | | | [facility], [address] | | | | | | [place] | | | | | | [address] | | | | + + + + + + | Urinalysis | CULTURE TO | | EXTERNAL | | | Comments | FOLLOWComment: Testing | | LAB | | | | performed at [facility], [address] | | | | | | [address], | | | | | | [place] [address] | | | | + + + [...] EXTERNAL | | | | performed at [facility];888 | mg/dL | LAB | | | | [address];[place], [place] | | | | | | [address] | | | | + + + [...] LAB | | C.diffAbnormal Testing performed at [facility];[address] [place] [address];[place], [place] | | | [phone] NAP1 BI 027 NAP1 BI | | | PRESUMPTIVE NEGATIVE Detection of 027 NAP1 BI strains of C. difficile | | | is presumptive and for epidemiological purposes and not intended to | | | guide or monitor treatment for C. difficile infections. Testing | | | performed at [facility];[address] [place] [address];[place] [address] | | + + + + +---------+ [...] EXTERNAL | | | | performed at [facility];888 | mmol/L | LAB | | | | [address];[place], [place] | | | | | | [address] | | | | + + + [...] | | | | | | at [facility];[address] [place] [address] | | | | | | [facility];[place] [address] | | | | + + + [...] EXTERNAL | | | | performed at [facility];[address] | | LAB | | | | [address] [facility];[place], [place] | | | | | | [address] | | | | + + + [...] | | | | | | ACUTE NC Testing | | | | | | performed at [facility];[address] | | | | | | [address];[place], [place] | | | | | | [address] | | | | + + + [...] K/uL | LAB | | | | [facility];[address];[place] [address] | | | | + + + + + + | Red Blood | 3.66 (L)Comment: Testing | 3.70 - 5.10 | EXTERNAL | | | Cells | performed at [facility];888 | M/uL | LAB | | | Counted | [address];[place] | | | | | | [address] | | | | + + + + + + | Hemoglobin | 12.6Comment: Testing | 11.3 - 15.5 | EXTERNAL | | | | performed at [facility];888 | g/dL | LAB | | | | [address];[place] | | | | | | [address] | | | | + + + + + + | Hematocrit, | 38.9Comment: Testing | 34.0 - 46.0 % | EXTERNAL | | | POC | performed at [facility];[address] | | LAB | | | | [address];[place] | | | | | | [address] | | | | + + + + + + | MCV | 106.3 (H)Comment: | 80.0 - 100.0 fl | EXTERNAL | | | | Testing performed at | | LAB | | | | [facility];[address];[place] [address] | | | | + + + + + + | MCH | 34.3 (H)Comment: Testing | 27.0 - 34.0 pg | EXTERNAL | | | | performed at [facility];[address] | | LAB | | | | [address];[place] | | | | | | [address] | | | | + + + + + + | MCHC | 32.3Comment: Testing | 32.0 - 35.5 | EXTERNAL | | | | performed at [facility];888 | g/dL | LAB | | | | [address];[place] | | | | | | [address] | | | | + + + + + + | RDW-CV | 54.7 (H)Comment: Testing | 37 - 53 fl | EXTERNAL | | | | performed at [facility];[address] | | LAB | | | | [address];[place] | | | | | | [address] | | | | + + + + + + | Platelet | 167Comment: Testing | 150 - 400 K/uL | EXTERNAL | | | Count | performed at [facility];[address] | | LAB | | | Plasma | [address];[place] | | | | | | [address] | | | | + + + + + + | MPV | 10.6Comment: Testing | fl | EXTERNAL | | | | performed at [facility];[address] | | LAB | | | | [address];[place] | | | | | | [address] | | | | + + + + + + | Differentia | MANUALComment: Testing | | EXTERNAL | | | l Type | performed at [facility];[address] | | LAB | | | | [address];[place] | | | | | | [address] | | | | + + + + + + | Segmented | 54Comment: Testing | % | EXTERNAL | | | Neutrophils | performed at [facility];[address] | | LAB | | | Manual | [address];[place] | | | | | | [address] | | | | + + + + + + | % Bands | 18Comment: Testing | % | EXTERNAL | | | | performed at [facility];[address] | | LAB | | | | [address];[place] | | | | | | [address] | | | | + + + + + + | Lymphocytes | 16Comment: Testing | % | EXTERNAL | | | Manual | performed at [facility];[address] | | LAB | | | | [address];[place] | | | | | | [address] | | | | + + + + + + | Monocytes | 12Comment: Testing | % | EXTERNAL | | | Manual | performed at [facility];[address] | | LAB | | | | [address];[place] | | | | | | [address] | | | | + + + + + + | Absolute | 10.69 (H)Comment: | 1.90 - 7.40 | EXTERNAL | | | Neutrophils | Testing performed at | K/uL | LAB | | | | [facility];[address];[place] [address] | | | | + + + + + + | Bands | 3.56 (H)Comment: Testing | 0.00 - 0.20 | EXTERNAL | | | Manual | performed at [facility];888 | K/uL | LAB | | | | [address];[place] | | | | | | [address] | | | | + + + + + + | Absolute | 3.16Comment: Testing | 1.00 - 3.90 | EXTERNAL | | | Lymphocytes | performed at [facility];[address] | K/uL | LAB | | | | [address];[place] | | | | | | [address] | | | | + + + + + + | Absolute | 2.37 (H)Comment: Testing | 0.00 - 0.80 | EXTERNAL | | | Monocytes | performed at [facility];[address] | K/uL | LAB | | | | [address];[place] | | | | | | [address] | | | | + + + + + + | Platelet | ADEQUATEComment: Testing | | EXTERNAL | | | Estimate | performed at [facility];[address] | | LAB | | | | [address];[place] | | | | | | [address] | | | | + + + + + + | RBC | NORMAL PLT MORPHComment: | | EXTERNAL | | | Morphology | 1+ANISOTesting | | LAB | | | | performed at [facility];[address] | | | | | | [address];[place], [place] | | | | | | [address] | | | | | | | [...] EXTERNAL | | | | performed at [facility];888 | uIU/mL | LAB | | | | [address];[place], [place] | | | | | | [address] | | | | + + + [...] EXTERNAL | | | | performed at [facility];8 | | LAB | | | | [address];[place] | | | | | | [address] | | | | + + + [...] | | LAB | | | | [facility];[address];[place] [address] | | | | + + + [...] EXTERNAL | | | | performed at [facility];[address] | | LAB | | | | [address];[place], [place] | | | | | | [address] | | | | + + + [...] EXTERNAL | | | | performed at [facility];[address] | | LAB | | | | [address];[place] | | | | | | [address] | | | | + + + [...] EXTERNAL | | | | performed at [facility];888 | mmol/L | LAB | | | | [address];[place] | | | | | | [address] | | | | + + + + + + | K | 3.4 (L)Comment: Testing | 3.5 - 4.9 | EXTERNAL | | | | performed at [facility];888 | mmol/L | LAB | | | | [address];[place] | | | | | | [address] | | | | + + + + + + | Cl | 101Comment: Testing | 99 - 109 mmol/L | EXTERNAL | | | | performed at [facility];[address] | | LAB | | | | [address];[place] | | | | | | [address] | | | | + + + + + + | CO2 | 27Comment: Testing | 23 - 32 mmol/L | EXTERNAL | | | | performed at [facility];[address] | | LAB | | | | [address];[place] | | | | | | [address] | | | | + + + + + + | Anion Gap | 12Comment: Testing | 5 - 20 mmol/L | EXTERNAL | | | | performed at [facility];[address] | | LAB | | | | [address];[place] | | | | | | [address] | | | | + + + + + + | Glucose, | 106 (H)Comment: Testing | 65 - 99 mg/dL | EXTERNAL | | | Fasting | performed at [facility];[address] | | LAB | | | | [address];[place] | | | | | | [address] | | | | + + + + + + | BUN | 18Comment: Testing | 8 - 25 mg/dL | EXTERNAL | | | | performed at [facility];[address] | | LAB | | | | [address];[place] | | | | | | [address] | | | | + + + + + + | Creatinine | 1.3 (H)Comment: Testing | 0.50 - 1.00 | EXTERNAL | | | | performed at [facility];888 | mg/dL | LAB | | | | [address];[place] | | | | | | [address] | | | | + + + + + + | BUN/Creatin | 14Comment: Testing | | EXTERNAL | | | ine Ratio | performed at [facility];[address] | | LAB | | | | [address];[place] | | | | | | [address] | | | | + + + + + + | Calcium | 7.3 (L)Comment: Testing | 8.5 - 10.5 | EXTERNAL | | | | performed at [facility];888 | mg/dL | LAB | | | | [address];[place] | | | | | | [address] | | | | + + + + + + | Protein, | 7.9Comment: Testing | 6.3 - 8.2 g/dL | EXTERNAL | | | Total | performed at [facility];[address] | | LAB | | | | [address];[place] | | | | | | [address] | | | | + + + + + + | Albumin | 2.5 (L)Comment: Testing | 3.3 - 4.8 g/dL | EXTERNAL | | | | performed at [facility];[address] | | LAB | | | | [address];[place] | | | | | | [address] | | | | + + + + + + | Globulin | 5.4 (H)Comment: Testing | 1.3 - 4.9 g/dL | EXTERNAL | | | | performed at [facility];[address] | | LAB | | | | [address];[place] | | | | | | [address] | | | | + + + + + + | A/G Ratio | 0.5 (L)Comment: Testing | 1.0 - 2.4 | EXTERNAL | | | | performed at [facility];[address] | | LAB | | | | [address];[place] | | | | | | [address] | | | | + + + + + + | Bilirubin | 0.6Comment: Testing | 0.1 - 1.5 mg/dL | EXTERNAL | | | Total | performed at [facility];[address] | | LAB | | | | [address];[place] | | | | | | [address] | | | | + + + + + + | ALP, | 188 (H)Comment: Testing | 35 - 115 U/L | EXTERNAL | | | External | performed at [facility];[address] | | LAB | | | | [address];[place] | | | | | | [address] | | | | + + + + + + | AST | 51 (H)Comment: Testing | 10 - 45 U/L | EXTERNAL | | | | performed at [facility];[address] | | LAB | | | | [address];[place] | | | | | | [address] | | | | + + + + + + | ALT | 30Comment: Testing | 10 - 65 U/L | EXTERNAL | | | | performed at [facility];[address] | | LAB | | | | [address];[place] | | | | | | [address] | | | | + + + [...] | | | | | | at [facility];[address] [place] [address] | | | | | | [facility];[place] [address] | | | | + + + [...] Performed At | + + + | [facility] 1945 69 years XR CHEST 1 [...] | Manuel Blake - 01/05/2019 4:32 AM ALTAGRACIA [id number] yearsXR | | CHEST 1 VIEW01/28/2015 2:40 [...]
--- OUTSIDE RECORDS SUMMARY | ~2019-10-16 | XMS | Encounter Summary ---
Demographics + + + | Address | [address] | | | [place] [address] | + + + | Home Phone [...] + + + | Author | [facility] | | | and [place] | + + + | Organization | [facility] | | | [...] Team Providers + +------+ + | Care Stagecraft Teacher Name | Role | Phone | + +------+ + | Rick Osorio DO | PCP | | + +------+ + Encounter Details +--------+ + + + + | Date | Type | Department | Care Team | Description | +--------+ + + + + | 06/04/ | Orders Only | [facility] | Emil Oliva MD | | | 2013 | | NEPHROLOGY [place] | [address] | | | | | [address] | [address] [place], [place] | | | | | [address] [place], [place] | [address] | | | | | [address] | | | | | | [phone] | | | +--------+ + + + [...] [place] | | | | | | [address] | | | | | | | [...] | | | LAB | | | [place] | | | | | + +-------+ [...]
--- OUTSIDE RECORDS SUMMARY | ~2019-10-16 | XMS | Encounter Summary ---
Demographics + + + | Address | [address] | | | [place] [address] | + + + | Home Phone | | + + + | Preferred Language | Unknown | + + + | Marital Status | Single | + + + | Mormon Affiliation | 1041 | + + + [...] Team Providers + +------+ + | Care Rubber Curer Name | Role | Phone | + +------+ + | Yovani Santana MD | PCP | | + +------+ + Encounter Details +--------+ + + + + | Date | Type | Department | Care Team | Description | +--------+ + + + + | 05/10/ | Hospital | [facility] | Gary Melendez, | Hypoxemia; | | 2014 | Encounter | MED CTR XRAY [address] | MD [address] | Restrictive lung | | | | [facility] [place] | [place], [place] | disease | | | | [place] [address] | [address] | | | | | [phone] | | | | | | | [...] [place] | | | | | | [address] | | | | | | | [...] + | MISCELLANEOUS LAB | | | [phone] | + +---------+ + + | MISCELANIOUS LAB | | | [phone] | + +---------+ + + documented in this encounter Visit Diagnoses + + | Diagnosis | + + | Hypoxemia | + + | Restrictive lung disease Other diseases of lung, not elsewhere classified | + + documented in this encounter"
--- OUTSIDE RECORDS SUMMARY | ~2019-10-16 | XMS | Encounter Summary ---
Demographics + + + | Address | [address] | | | [place] [address] | + + + | Home Phone | | + + + | Preferred Language | Unknown | + + + | Marital Status | Single | + + + | Baptism Affiliation | 1041 | + + + | Race | Unknown | + + + | Ethnic Group | Unknown | + + + Author + + + | Author | [facility] | | | and [place] | + + + | Organization | [facility] | | [...] Team Providers + +------+ + | Care Linen Controller Name | Role | Phone | + +------+ + | Rick Osorio DO | PCP | | + +------+ + Encounter Details +--------+ + + + + | Date | Type | Department | Care Team | Description | +--------+ + + + + | 12/05/ | Orders Only | [facility] | Emil Oliva MD | | | 2013 | | NEPRHOLOGY [place] | [address] | | | | | [address] | [address] [place], [place] | | | | | [address] [place], [place] | [address] | | | | | [address] | | | | | | [phone] | | | +--------+ + + + [...] [place] | | | | | | [address] | | | | | | | [...]
--- OUTSIDE RECORDS SUMMARY | ~2019-10-16 | XMS | Encounter Summary ---
Demographics + + + | Address | [address] | | | [place] [address] | + + + | Home Phone [...] Team Providers + +------+ + | Care Lens Dotter Name | Role | Phone | + +------+ + | Rick Osorio DO | PCP | | + +------+ + Encounter Details +--------+ + + + + | Date | Type | Department | Care Team | Description | +--------+ + + + + | 12/05/ | Orders Only | [facility] | Emil Oliva MD | | | 2013 | | NEPRHOLOGY [place] | [address] [facility] | | | | | [address] | [address] [place], [place] | | | | | [address] [place], [place] | [address] | | | | | [address] | | | | | | [phone] | | | +--------+ + + + [...] | | | | | | [place] | | | | | | [address] | | | | | | | [...]
--- OUTSIDE RECORDS SUMMARY | ~2019-10-16 | XMS | Encounter Summary ---
Demographics + + + | Address | [address] | | | [place] [address] | + + + | Home Phone [...] + + | Author | [facility] | | | and [place] | + + + | Organization | [facility] | | [...] Team Providers + +------+ + | Care Network Desktop Support Specialist Name | Role | Phone | + +------+ + | Rick Osorio DO | PCP | | + +------+ + Reason for Visit + + + | Reason | Comments | + + + | New Patient | NEW PATIENT | + + + Evaluate & Treat (Urgent) + +--------+ + + + + | Status | Reason | Specialty | Diagnoses / | Referred By | Referred To | | | | | Procedures | Contact | Contact | + +--------+ + + + + | Authorized | | Cardiology | Diagnoses | Jo, | Alves, | | | | | | Rick, DO | Yaquelin DO | | | | | Tachycardia, | [address] | [address] | | | | | unspecified | [address] | OB[address] | | | | | Chronic | [address] | [place], [place] | | | | | atrial | [place], | [address] Phone: | | | | | fibrillation | [place] | [phone] | | | | | , | [address] | Fax: | | | | | unspecified | Phone: | [phone] | | | | | ([facility]) | [phone] | | | | | | Procedures | Fax: | | | | | | Consult | [phone] | | + +--------+ + + + + Encounter Details +--------+---------+ + + + | Date | Type | Department | Care Team | Description | +--------+---------+ + + + | 09/26/ | Office | [facility] | AlvesColleenyDO | Tachycardia (Primary | | 2020 | Visit | CARDIOLOGY [place] | [address] | Dx); Edema, | | | | [address] | [place] [address] [place], [place] | unspecified type; | | | | [address] | [id number] | Paroxysmal atrial | | | | [place], [place] | | fibrillation (HCC) | | | | [address] | | | | | | [phone] | | | +--------+---------+ + + + [...] encounter Progress Notes Yaquelin Alves DO - 09/27/2019 3:20 PM PDT [facility] Cardiology Consult Note Reason for [...] Procedure: COLONOSCOPY; Surgeon: Juan Ramey MD; Location: [facility]; Service: G astroenterology; Laterality: N/A; GALLBLADDER [...] by herself Single No kids 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
--- OUTSIDE RECORDS SUMMARY | ~2019-10-16 | XMS | Encounter Summary ---
Demographics + + + | Address | [address] | | | [place] [address] | + + + | Home Phone | | + + + | Preferred Language | Unknown | + + + | Marital Status | Single | + + + | Temple Affiliation | 1041 | + + + | Race | Unknown | + + + | Ethnic Group | Unknown | + + + Author + + + | Author | [facility] | | | and [place] | + + + | Organization | [facility] | | | and [...] Team Providers + +------+ + | [facility] Path[facility] Associate Professor Name | Role | Phone | + +------+ + | Yovani Santana MD | PCP | | + +------+ + Encounter Details +--------+ + + + + | Date | Type | Department | Care Team | Description | +--------+ + + + + | 01/14/ | Hospital | [facility] | Jennifer Hartman MD | Near syncope; | | 2015 - | Encounter | [facility] | [address] | Elevated troponin; | | | | CARE FLOOR [address] | [place] [address] | Non-STEMI (non-ST | | 01/19/ | | [address] | [phone] | elevated myocardial | | 2015 | | [place], [place] | | infarction) ([facility]); | | | | [address] | | CKD (chronic kidney | | | | [phone] | | disease), | | | | | | unspecified stage; | | | | | | Leukocytosis; ZULAY | | | | | | (acute kidney | | | | | | injury) ([facility]); Liver | | | | | | replaced by | | | | | | transplant ([facility]) | +--------+ + + + + Social [...] Date of Service: 01/19/15 0753 Status: Signed Senior Financial: Emma Hardy MD (Physician) Related Notes: Original Note by Emma Hardy MD (Physician) filed at 01/19/15 0800 [facility] Service: Hospitalist Physician Discharge [...] history of chronic pain, on chronic methadone, 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 The patient was taken off methadone about 3 weeks prior to admission. Pre vious creatinine was 1.38 and the patient was presented at [facility] in [place] , was found to have elevated troponin of 0.55 and noted to have creatinine of 2.4 and leukoc ytosis and was transferred for kxv-IA-hnqwyiujn TN. HOSPITAL COURSE The patient was admitted with sqa-ES-nqwssnpch TN. Cardiology consult was obtained. She was started [...] lipid-lowerin g therapy. The patient also has sbgzw-jw-syfbhvu kidney disease, stage III. Acute renal fail [...] to have severe protein calorie malnutrition and nuclear test technician was consulted. Her blood pressures remain [...] 1.5* 1.8 1.4* Invalid input(s): ABG Disposition: custodial facility Follow up: Ki De Jesus DO [address] [facility] [address] [place] [address] Schedule an appointment as soon as possible for a visit in 4 days Juan Ramey MD [address] [facility] [address] [facility] [address] Schedule an appointment as soon as possible for a visit in 1 week Follow up biopsy results Juju Riggins MD [address] [place] [address] Schedule an appointment as soon as [...] are the prescriptions that you need to chart picker. You may get the following medications [...] summary. This entry has been created using Lightningcast Speech Recognition software and CityCiv. The entry has been reviewed and there [...] (none) Author Type: Registered Nurse Filed: 01/19/15 8685 Date of Service: 01/19/15 1300 Status: Signed Senior Financial: Shaista Lin RN (Registered Nurse) Pt discharged via wheel chair on 2 L of oxygen. To [facility] in [place]. Pt alert and o rientedX4. onver alessandro Transaction, Provider Unknown - 01/19/2015 8:20 AM PDT Case Management by PHUONG Roman at 01/19/15819 Author: PHUONG Roman Service: (none) Author Type: Merchandise Team Manager Filed: 01/19/15819 Date of Service: 01/19/15819 Status: Signed Senior Financial: PHUONG Roman (Merchandise Team Manager) Disposition: [facility] Transportation: facility van All orders, [...] 01/19/15624 Date of Service: 01/19/15412 Status: Signed Senior Financial: Yady Singh RN (Registered Nurse) Patient resting quietly all night. Medicated once for all over general pain. No further com plaints. VSS. onver alessandro Transaction, Provider Unknown - 01/18/2015 3:21 PM PDT Case Management by PHUONG Roman at 01/18/151520 Author: PHUONG Roman Service: (none) Author Type: Merchandise Team Manager Filed: 01/18/151520 Date of Service: 01/18/151520 Status: Signed Senior Financial: PHUONG Roman (Merchandise Team Manager) spoke w/ Will at [facility] who reports they can accept and transport pt tomorrow AM. PHUONG Roman osangela Kirk MD - 01/18/2015 3:10 PM PDT Progress Notes by Rosangela Steinberg MD at 01/18/15 151 Author: Rosangela Steinberg MD Service: Infectious Disease Author Type: Physician Filed: 01/18/15 6300 Date of Service: 01/18/151509 Status: Signed Senior Financial: Rosangela Steinberg MD (Physician) [facility] Service: Infectious Disease Progress Note Hospital [...] vomiting and diarrhea. Had initially presented to [facility] in [place] with similar complaints. Was foun d to have an elevated troponin. She was mainly admitted as a non-STEMI. Found to have a leuk ocytosis. Since patient is immunocompromised, she was started empirically on IV ceftriaxone. Chest x-ray showed no infiltrate. Patient denies any recent fevers or chills. She went to [facility] mainly becau se of syncope. Prior [...] extraluminal fluid collection abdomen pelvis without contrast [[id number]] Impression 1. Hypoinflated chest, but no evident infiltrate chest 1 view [[id number]] Impression 1. Indication for study and thus [...] 1445 Date of Service: 01/18/1549 Status: Signed Senior Financial: Emma Hardy MD (Physician) [facility] Service: Hospitalist Progress Note Hospital Day: LOS: 4 days SUBJECTIVE Patient Summary: 69-year-old female with history of liver transplant secondary to [facility] biliary cirrhosis on immunosuppression, chronic [...] (HCC) ASSESSMENT & PLAN 1. Non-ST elevation TN. Possible demand ischemia. Will schedule for nuclear [...] schrader 8. Deconditioning Continue physical therapy and usp facility placement versus home PT 9. Chronic [...] AM This entry has been created using Lightningcast Speech Recognition software and CityCiv. The entry has been reviewed and there may still exist sound alike word errors. onversion Trans action, Provider Unknown - 01/18/2015 5:16 AM PDT Nurse Progress Note by Yady Singh RN at 01/18/15 05 Author: Yady Singh RN Service: (none) Author Type: Registered Nurse Filed: 01/18/152104 Date of Service: 01/18/15515 Status: Signed Senior Financial: Yady Singh RN (Registered Nurse) Pt taken [...] Date of Service: 01/17/15 1629 Status: Signed Senior Financial: Jose Maria Espinal MD (Physician) Related Notes: Original Note by Jose Maria Espinal MD (Physician) filed at 01/17/152012 [facility] Service: Hospitalist Progress Note Pt: Cole Ernst AGE/SEX: 69 y.o. female : 1945 ROOM: [address] [place] [address] History of Present Illness: " The patient [...] who called EMS. Patient was taken to [facility] in [place]. Susie ent was noted to have a [...] Patient had borderline blood pressure. While at [facility] with systolic in the low 90s. Heart [...] CT done several days ago while in [place]. She also stat es that her vomiting and diarrhea have significantly improved. She denies any fevers, hemat emesis, melena, bright red blood per rectum, hematuria, dysuria, she denies any leg pain or swelling. No palpitations. She states she does have a history of "kidney disease" and was told that it was secondary to cyclosporine. However, she is not seen kidney specialist [facility] e her liver transplant.".....per admitting [...] as n oted. I urged the staff analyst to introduce a hat so that sample [...] contrast. Prior study for comparison: None FINDINGS: Tree Trimming Supervisor 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 deg enerative changes of [...] LA/Ao: 1.57 D-E Excursion: 2.11 cm E-F [place]: 0.09 m/s EPSS: 0.48 cm HR: 77.41 [...] TV A Billy: 0.66 m/s TV Dec [place]: 4.36 m/s2 TV Dec Time: 184.41 ms TV E Billy: 0.80 m/s TV E/A Rat io: 1.21 Top Spotter: NEDRA Authenticated by: Gil Coronel MD Report [...] nutritional supplements as recommend ed by nutrition service/nuclear test technician. Jose Maria Espinal MD 01/17/2015 4:29 PM onversion Transa ction, Provider Unknown - 01/17/2015 3:15 PM PDT Case Management by PHUONG Sandhu at 01/17/15 1515 Author: PHUONG Sandhu Service: (none) Author Type: Carpenter Helper Filed: 01/17/15 0318 Date of Service: 01/17/155 Status: Signed Senior Financial: PHUONG Sandhu (Carpenter Helper) 01/17/15 1500 Discharge Planning Evaluation Admitting Diagnosis Near syncope, elevated tropinin, non-stemi, CKD Anticipated Disposition Facility Type custodial facility Medicare Important Message (MEREDITH) Given Long-Term Facility Other (comment) ([facility]) LEACH TANK TENDER met with Pt for discharge planning, on board with going to [facility] when medically ready. LEACH TANK TENDER p/c to [facility] at [facility] - will accept Pt when medically ready. [facility] (73 miles) [address] [facility], [place] Kindergarten Classroom Teacher: Will DCP: [facility] Transportation: [facility] Facility Van - [employer]inder[employer] Classroom Teacher: Will Medicare important message signed and copy in chart LUIS FOUNTAIN, Merchandise Team Manager [phone] cell osangela Kirk MD - 01/17/2015 1:11 PM PDT Progress Notes by Rosangela Steinberg MD at 01/17/15 1311 Author: Rosangela Steinberg MD Service: Infectious Disease Author Type: Physician Filed: 01/17/15 5058 Date of Service: 01/17/15 1311 Status: Signed Senior Financial: Rosangela Steinberg MD (Physician) [facility] Service: Infectious Disease Progress Note Hospital [...] vomiting and diarrhea. Had initially presented to [facility] in [place] with similar complaints. Was foun d to have an elevated troponin. She was mainly admitted as a non-STEMI. Found to have a leuk ocytosis. Since patient is immunocompromised, she was started empirically on IV ceftriaxone. Chest x-ray showed no infiltrate. Patient denies any recent fevers or chills. She went to [facility] mainly becau se of syncope. Prior [...] extraluminal fluid collection abdomen pelvis without contrast [[id number]] Impression 1. Hypoinflated chest, but no evident infiltrate chest 1 view [[id number]] Impression 1. Indication for study and thus [...] 01/16/152137 Date of Service: 01/16/152127 Status: Signed Senior Financial: Juju Riggins MD (Physician) [facility] Service: Cardiology Progress Note Hospital Day: [...] Management by PHUONG Sandhu at 01/16/153 Author: PHUNOG Sandhu Service: (none) Author Type: Carpenter Helper Filed: 01/16/156 Date of Service: 01/16/151642 Status: Signed Senior Financial: PHUONG Sandhu (Carpenter Helper) 01/16/15 1600 Discharge Planning Evaluation Admitting Diagnosis Near syncope, elevated tropinin, non-stemi, CKD Anticipated Disposition Facility Type custodial facility Long-Term Facility Other (comment) ([facility]) PHUONG received p/c from Will, admissions at [facility], states they are willi ng to accept Pt to their Long-Term Facility, states their house physician will not pre scribe Methadone. Will states she will start authorization process with [employer] who is Managing the Medicare benefits. Will states the first 20 days are covered at 100% then day 21 will be $100.00 a day. DCP: [facility] or [place] LUIS FOUNTAIN,Merchandise Team Manager [phone] cell Jose Maria Grimes MD - 01/16/2015 11:29 AM PDTFormatting of this note might be different from armando tellez original. Progress Notes by Jose Maria Espinal MD at 01/16/15 1129 Author: Jose Maria Espinal MD Service: Hospitalist Author Type: Physician Filed: 01/17/15 1149 Date of Service: 01/16/15 112 Status: Signed Senior Financial: Jose Maria Espinal MD (Physician) Related Notes: Original Note by Jose Maria Espinal MD (Physician) filed at 01/16/15 1137 [facility] Service: Hospitalist Progress Note Pt: Cole Ernst AGE/SEX: 69 y.o. female : 1945 ROOM: [address] [place] [address] History of Present Illness: " The patient [...] who called EMS. Patient was taken to [facility] in [place]. Susie ent was noted to have a [...] Patient had borderline blood pressure. While at [facility] with systolic in the low 90s. Heart [...] CT done several days ago while in [place]. She also stat es that her vomiting and diarrhea have significantly improved. She denies any fevers, hemat emesis, melena, bright red blood per rectum, hematuria, dysuria, she denies any leg pain or swelling. No palpitations. She states she does have a history of "kidney disease" and was told that it was secondary to cyclosporine. However, she is not seen kidney specialist [facility] her liver transplant.".....per admitting [...] as n oted. I urged the staff analyst to introduce a hat so that sample [...] contrast. Prior study for comparison: None FINDINGS: Tree Trimming Supervisor 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 deg enerative changes of [...] LA/Ao: 1.57 D-E Excursion: 2.11 cm E-F [place]: 0.09 m/s EPSS: 0.48 cm HR: 77.41 [...] TV A Billy: 0.66 m/s TV Dec [place]: 4.36 m/s2 TV Dec Time: 184.41 ms TV E Billy: 0.80 m/s TV E/A Rat io: 1.21 Top Spotter: NEDRA Authenticated by: Gil Coronel MD Report [...] pressure has been showing increasing trend since in toprolol has been held on admission due [...] initiate electrolyte replaceme nt protocol. Jose Maria sEpinal MD 01/16/2015 11:29 AM onversion Transa ction, Provider Unknown - 01/16/2015 11:02 AM PDT Therapy Progress Note by Natalio Benito, PT at 01/16/15 1102 Author: Natalio Benito, PT Service: (none) Author Type: Physical Therapist Filed: 01/16/15 1220 Date of Service: 01/16/15 1102 Status: Signed Senior Financial: Natalio Benito PT (Physical Therapist) 01/16/15 1102 PT Last Visit PT Received On 01/16/15 Reason for Treatment Deconditioning;Other (comment) (NSTEMI; Syncope) Requires PT Follow Up Awaiting tx order Follow up PT Only? No PT Eval/Reassessment Date 01/16/15 Assistance Required 1 person Brush Material Preparer Needed No Home Environment Type of Home Apartment ground level Home Exterior Layout Entry steps none Home Interior Layout Lives on main level with bedroom/bathroom Bathroom Shower/Tub Tub/shower unit Bathroom Toilet Standard Bathroom Equipment Shower stool;Grab bars in shower/bath;Grab bars outside of shower/bath Bathroom Accessibility Other (Comment) (Small bathroom) Home Equipment Walker 4 wheeled;Cane single point Prior Function Level of [place] Modified independent with functional mobility;Modified independent wi [...] (sitting in recliner w/ call light and STRETCHING MACHINE OPERATOR present) Restraints Initially in Place No Precautions [...] Eval/Reassessment Date 01/16/15 Assistance Required 1 person Brush Material Preparer Needed No Precautions Other Precautions Fall Risk [...] support. Patient in the recli ner w/ STRETCHING MACHINE OPERATOR present at end of session, no new [...] (sitting in recliner w/ call light and STRETCHING MACHINE OPERATOR present) Restraints Initially in Place No Plan [...] Notes by Nupur Tadeo MD at 01/16/15 5462 Author: Nupur Tadeo MD Service: Infectious Disease Author Type: Physician Filed: 01/16/15 1257 Date of Service: 01/16/15 1045 Status: Signed Senior Financial: Nupur Tadeo MD (Physician) [facility] Service: Infectious Disease Progress Note Hospital [...] vomiting and diarrhea. Had initially presented to [facility] in [place] with similar complaints. Was found to have an elevated troponin . She was mainly admitted as a non-STEMI. Found to have a leukocytosis. Since patient is imm unocompromised, she was started empirically on IV ceftriaxone. Chest x-ray showed no infiltrate. Patient denies any recent fevers or chills. She went to [facility] mainly becau se of syncope. Prior [...] Author: PHUONG Sandhu Service: (none) Author Type: Carpenter Helper Filed: 01/16/15 1042 Date of Service: 01/16/15 1030 Status: Signed Senior Financial: PHUONG Sandhu (Carpenter Helper) 01/16/15 1000 Discharge Planning Evaluation Admitting Diagnosis Near syncope, elevated tropinin, non-stemi, CKD Anticipated Disposition Facility Type custodial facility LEACH TANK TENDER met with Pt and discussed discharge planning, states she has concerns returning home at this time, as Pt resides alone. LEACH TANK TENDER discussed rehab options, SNF vs Home Health vs Outpatient PT. Pt states her sister (Annie Tipton [phone] cell) assists with IADLs as Pt does not dri ve. Pt states she resides alone and has been doing ADLs on her own. Pt states she uses a 4WW with seat at home, then uses a cane when out of the home, stated, "I am a little vain" abou t using the 4WW in public. Pt is interested in [facility], due to close proximity to her home. LEACH TANK TENDER faxe d SNF referral. Pt is a [...] DCP: Pending placement at [facility] [place] LUIS FOUNTAIN, Merchandise Team Manager [phone] cell Luisito Mejía - 01/16/2015 9:12 AM PDTFormatting of this note might be different from the or iginal. Progress Notes by Luisito Thomas MD at 01/16/1512 Author: Luisito Thomas MD Service: Nephrology Author Type: Physician Filed: 01/20/15 190 Date of Service: 01/16/15911 Status: Signed Senior Financial: Luisito Thomas MD (Physician) [facility] Service: NEPHROLOGY PROGRESS Note Cole Ernst 69 y.o. [id number] 4445/[id number] female [facility] Hospital Day: LOS: 2 days The patient is a 69 y.o. 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 IMPROVING REPLACE TO KEEP P GREATER THAN 2.5 REPEAT P LEVEL IN AM Lab Results Component Value Date PHOS 2.0* 01/16/2015 PHOS 1.5* 01/15/2015 PHOS 1.4* 01/14/2015 Abdominal pain / LEUCOCYTOSIS PER HOSPITALIST CT SCAN WITH ORAL CONTRAST DONE, PLAN FOR COLONOSCOPY Possible UTI pyuria on her urinalysis from [facility] on ceftriaxone CASE DISCUSSED IN DETAIL WITH PATIENT/ Care team / HOSPITALIST, ANSWERS ALL QUESTIONS IN DE TAIL, VERBALIZES UNDERSTANDING WILL SIGN OFF, CALL US PRN FOR ANY QUESTIONS, THANKS FOR THE CONSULT LUSIITO THOMAS MD 01/16/2015 [facility] onversion Transactio n, Provider Unknown - 01/16/2015 5:06 AM PDT Nurse Progress Note by Michelle Paulson RN at 01/16/15505 Author: Michelle Paulson RN Service: (none) Author Type: Registered Nurse Filed: 01/16/15508 Date of Service: 01/16/15505 Status: Signed Senior Financial: Michelle Paulson RN (Registered Nurse) Patient resting quietly t/o shift. High CIWA this shift =4. Patient c/o generalized pain, treated with PRN [place] per orders. Patient observed to be sle eping, following PRN medication and repositioning. Patient continues to be NSR-ST on tele. Vitals stable. Will continue to monitor patient. Jose Maria Grimes MD - 01/15/2015 3:19 PM PDTFormatting of this note might be different from armando tellez original. Progress Notes by Jose Maria Espinal MD at 01/15/15 183 Author: Jose Maria Espinal MD Service: Hospitalist Author Type: Physician Filed: 01/16/1566 Date of Service: 01/15/151518 Status: Signed Senior Financial: Jose Maria Espinal MD (Physician) Related Notes: Original Note by Jose Maria Espinal MD (Physician) filed at 01/15/151939 [facility] Service: Hospitalist Progress Note Pt: Cole Ernst AGE/SEX: 69 y.o. female : 1945 ROOM: [address] [place] [address] History of Present Illness: " The patient [...] who called EMS. Patient was taken to [facility] in [place]. Susie ent was noted to have a [...] Patient had borderline blood pressure. While at [facility] with systolic in the low 90s. Heart [...] CT done several days ago while in [place]. She also stat es that her vomiting and diarrhea have significantly improved. She denies any fevers, hemat emesis, melena, bright red blood per rectum, hematuria, dysuria, she denies any leg pain or swelling. No palpitations. She states she does have a history of "kidney disease" and was told that it was secondary to cyclosporine. However, she is not seen kidney specialist [facility] her liver transplant.".....per admitting [...] contrast. Prior study for comparison: None FINDINGS: Tree Trimming Supervisor 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 deg enerative changes of [...] LA/Ao: 1.57 D-E Excursion: 2.11 cm E-F [place]: 0.09 m/s EPSS: 0.48 cm HR: 77.41 [...] TV A Billy: 0.66 m/s TV Dec [place]: 4.36 m/s2 TV Dec Time: 184.41 ms TV E Billy: 0.80 m/s TV E/A Rat io: 1.21 Top Spotter: NEDRA Authenticated by: Gil Coronel MD Report [...] Elevated troponins, question underlying non ST elevation TN. Continue current medical th erapy. I appreciate [...] Notes by Ronda Michaels RD at 01/15/15 1432 Author: Ronda Michaels RD Service: (none) Author Type: Registered Dietitian Filed: 01/15/15 8584 Date of Service: 01/15/151429 Status: Signed Senior Financial: Ronda Michaels RD (Registered Dietitian) 01/15/15 9910 Subjective Timepoint Admit Pt c/o In to [...] Estimated Energy Needs Total Energy Estimated Needs 7409-9318 kcal Method for Estimating Needs 25-30 kcal/kg [...] Date of Service: 01/15/15 1043 Status: Signed Senior Financial: Luisito Thomas MD (Physician) [facility] Service: NEPHROLOGY PROGRESS Note Cole Ernst 69 y.o. [id number] 4445/[id number] female [facility] Hospital Day: LOS: 1 day The patient is a 69 y.o. 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 See ED Record for Physician Inter pretation. 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 REPLACE TO KEEP P GREATER THAN 2.5 REPEAT P LEVEL IN AM Lab Results Component Value Date PHOS 1.5* 01/15/2015 PHOS 1.4* 01/14/2015 Abdominal pain / LEUCOCYTOSIS PER HOSPITALIST CT SCAN WITH ORAL CONTRAST DONE Possible UTI pyuria on her urinalysis from [facility] on ceftriaxone CASE DISCUSSED IN DETAIL WITH PATIENT/ Care team / HOSPITALIST, ANSWERS ALL QUESTIONS IN D ETAIL, VERBALIZES UNDERSTANDING LUISITO THOMAS MD 01/15/2015 KI DE JESUS onversion Transactio n, Provider Unknown - 01/14/2015 11:16 PM PDT Nurse Progress Note by Giovanna Bejarano RN at 01/14/154 Author: Giovanna Bejarano RN Service: (none) Author Type: Registered Nurse Filed: 01/14/159 Date of Service: 08/25/15 2316 Status: Signed Senior Financial: Giovanna Bejarano, RN (Registered Nurse) Called Dr. [...] 01/14/152226 Date of Service: 01/14/152226 Status: Signed Senior Financial: Jazz Rahman RPH (Pharmacist) Clinical Pharmacy Note - Renal Dose Adjustment Cole Ernst 69 y.o. female Ht Readings from Last 1 Encounters: 01/14/15 1.6 m (5' 3") Wt Readings from Last 1 Encounters: 01/14/15 89.6 kg (197 lb 8.5 oz) CREATININE Date Value Ref Range Status 01/14/2015 2.4* 0.50 - 1.00 mg/dL Final Comment: Testing performed at [facility];[address] [place] [address];[place] [address] CREATININE: 2.4 mg/dL ABNORMAL (01/14/15 1548) Estimated [...] PHUONG Crump LICSW at 01/14/159 Author: PHUONG Crump, VINAY Service: (none) Author Type: Merchandise Team Manager Filed: 01/14/151734 Date of Service: 01/14/151733 Status: Signed Senior Financial: PHUONG Crump, WANT AD RECEIVER (Merchandise Team Manager) 01/14/15 8754 Discharge Planning Evaluation Admitting Diagnosis Near syncope, elevated tropinin, non-stemi, CKD Readmission No Living Arrangements Alone Support Systems Family members;Friends/neighbors Type of Residence Private residence House type Apartment Bathrooms on 1st Floor 1-Full Independent with ADL's Yes Independent with Mobility No-comment Home Care Services No Mental Status Oriented Power of Chief Executive Or Managing Director No;Other (comment) Resources Transportation issues No Prescription Plan Yes Name of Pharmacy [facility] in [place], [place] Previous home health equipment Yes Anticipated Disposition Facility Type Home Met with patient and discussed discharge planning, Pt is a 69 y.o., female who reports dru giron alone. Patient reports her sister, Annie Tipton, will transport her home a t discharge. Patient's PCP is: KI DE JESUS (General) Patient's insurance:b [employer] Health Plan & Medicare Coverage concerns: Medication coverage/concerns: [facility] Bed[facility] Delivery: Community resources utilized / [...] [place] | | | | | | [address] | | | | | | | [...] preparation was | | | performed by [employer], [facility], [facility] | | | [place] [address] (Self Propelled Mining Machine Operator: Martin | | | Zhang Galvan; [facility]#: [id number]). Diagnostician: Martin Potter | Pathologist Electronically Signed [...] | | | | | [place] [address] | | | | + + + [...] EXTERNAL | | | | performed at [facility], [address] | | LAB | | | | [address], | | | | | | [place] [address] | | | | + + + [...] | | | | | [place] [address] | | | | + + + + + + | K | 3.4 (L)Comment: Testing | 3.5 - 4.9 | EXTERNAL | | | | performed at [facility], [address] | mmol/L | LAB | | | | [address], | | | | | | [place] [address] | | | | + + + + + + | Cl | 101Comment: Testing | 99 - 109 mmol/L | EXTERNAL | | | | performed at [facility], [address] | | LAB | | | | [address], | | | | | | [place] [address] | | | | + + + + + + | CO2 | 28Comment: Testing | 23 - 32 mmol/L | EXTERNAL | | | | performed at [facility], [address] | | LAB | | | | [address], | | | | | | [place] [address] | | | | + + + + + + | Anion Gap | 10Comment: Testing | 5 - 20 mmol/L | EXTERNAL | | | | performed at [facility], [address] | | LAB | | | | [address], | | | | | | [place] [address] | | | | + + + + + + | Glucose, | 107 (H)Comment: Testing | 65 - 99 mg/dL | EXTERNAL | | | Fasting | performed at [facility], [address] | | LAB | | | | [address], | | | | | | [place] [address] | | | | + + + + + + | BUN | 8Comment: Testing | 8 - 25 mg/dL | EXTERNAL | | | | performed at [facility], [address] | | LAB | | | | [address], | | | | | | [place] [address] | | | | + + + + + + | Creatinine | 0.96Comment: Testing | 0.50 - 1.00 | EXTERNAL | | | | performed at [facility], [address] | mg/dL | LAB | | | | [address], | | | | | | [place] [address] | | | | + + + + + + | BUN/Creatin | 8Comment: Testing | | EXTERNAL | | | ine Ratio | performed at [facility], [address] | | LAB | | | | [address], | | | | | | [place] [address] | | | | + + + + + + | Calcium | 8.6Comment: Testing | 8.5 - 10.5 | EXTERNAL | | | | performed at [facility], [address] | mg/dL | LAB | | | | [facility], | | | | | | [place] [address] | | | | + + + [...] | | | | | | at [facility], [address] | | | | | | [facility], | | | | | | [place] [address] | | | | + + + [...] + + + | COLE ERNST 1945 [place] MYOCARDIAL PERFUSION SPECT - STRESS | | [...] EXTERNAL | | | | performed at [facility], [address] | K/uL | LAB | | | | [address], | | | | | | [place] [address] | | | | + + + + + + | Red Blood | 3.41 (L)Comment: Testing | 3.70 - 5.10 | EXTERNAL | | | Cells | performed at [facility], [address] | [address]/uL | LAB | | | Counted | [address], | | | | | | [place] [address] | | | | + + + + + + | Hemoglobin | 11.9Comment: Testing | 11.3 - 15.5 | EXTERNAL | | | | performed at [facility], [address] | g/dL | LAB | | | | [address], | | | | | | [place] [address] | | | | + + + + + + | Hematocrit, | 35.7Comment: Testing | 34.0 - 46.0 % | EXTERNAL | | | POC | performed at [facility], [address] | | LAB | | | | [address], | | | | | | [place] [address] | | | | + + + + + + | MCV | 104.6 (H)Comment: | 80.0 - 100.0 fl | EXTERNAL | | | | Testing performed at | | LAB | | | | [facility], [address] | | | | | | [place] | | | | | | [address] | | | | + + + + + + | MCH | 34.9 (H)Comment: Testing | 27.0 - 34.0 pg | EXTERNAL | | | | performed at [facility], [address] | | LAB | | | | [address], | | | | | | [place] [address] | | | | + + + + + + | MCHC | 33.3Comment: Testing | 32.0 - 35.5 | EXTERNAL | | | | performed at [facility], [address] | g/dL | LAB | | | | [address], | | | | | | [place] [address] | | | | + + + + + + | RDW-CV | 50.8Comment: Testing | 37 - 53 fl | EXTERNAL | | | | performed at [facility], [address] | | LAB | | | | [address], | | | | | | [place] [address] | | | | + + + [...] | | | | | [place] [address] | | | | + + + + + + | MPV | 12.6Comment: Testing | fl | EXTERNAL | | | | performed at [facility], [address] | | LAB | | | | [address], | | | | | | [place] [address] | | | | + + + + + + | Differentia | AUTOMATEDComment: | | EXTERNAL | | | l Type | Testing performed at | | LAB | | | | [facility], [address] | | | | | | [place] | | | | | | [address] | | | | + + + + + + | % Segmented | 40.31Comment: Testing | % | EXTERNAL | | | | performed at [facility], [address] | | LAB | | | Neutrophils | [address], | | | | | | [place] [address] | | | | + + + + + + | % | 39.78Comment: Testing | % | EXTERNAL | | | Lymphocytes | performed at [facility], [address] | | LAB | | | | [address], | | | | | | [place] [address] | | | | + + + + + + | % Monocytes | 12.51Comment: Testing | % | EXTERNAL | | | | performed at [facility], [address] | | LAB | | | | [address], | | | | | | [place] [address] | | | | + + + + + + | % | 6.45Comment: Testing | % | EXTERNAL | | | Eosinophils | performed at [facility], [address] | | LAB | | | | [address], | | | | | | [place] [address] | | | | + + + + + + | % Basophils | 0.95Comment: Testing | % | EXTERNAL | | | | performed at [facility], [address] | | LAB | | | | [address], | | | | | | [place] [address] | | | | + + + + + + | Absolute | 3.26Comment: Testing | 1.90 - 7.40 | EXTERNAL | | | Segmented | performed at [facility], [address] | K/uL | LAB | | | Neutrophils | [address], | | | | | | [place] [address] | | | | + + + + + + | Absolute | 3.21Comment: Testing | 1.00 - 3.90 | EXTERNAL | | | Lymphocytes | performed at [facility], [address] | K/uL | LAB | | | | [address], | | | | | | [place] [address] | | | | + + + + + + | Absolute | 1.01 (H)Comment: Testing | 0.00 - 0.80 | EXTERNAL | | | Monocytes | performed at [facility], [address] | K/uL | LAB | | | | [address], | | | | | | [place] [address] | | | | + + + + + + | Absolute | 0.52 (H)Comment: Testing | 0.00 - 0.50 | EXTERNAL | | | Eosinophils | performed at [facility], [address] | K/uL | LAB | | | | [address], | | | | | | [place] [address] | | | | + + + + + + | Absolute | 0.08Comment: Testing | 0.00 - 0.10 | EXTERNAL | | | Basophils | performed at [facility], [address] | K/uL | LAB | | | | [address], | | | | | | [place] [address] | | | | + + + + + + | RBC | RBC AND PLT MORPHOLOGY | | EXTERNAL | | | Morphology | APPEAR NORMALComment: | | LAB | | | | Testing performed at | | | | | | [facility], [address] | | | | | | [place] | | | | | | [address] | | | | + + + [...] EXTERNAL | | | | performed at [facility], [address] | | LAB | | | | [address], | | | | | | [place] [address] | | | | + + + [...] EXTERNAL | | | | performed at [facility], [address] | | LAB | | | | [address], | | | | | | [place] [address] | | | | + + + [...] | | | | | [place] [address] | | | | + + + + + + | K | 3.8Comment: Testing | 3.5 - 4.9 | EXTERNAL | | | | performed at [facility], [address] | mmol/L | LAB | | | | [address], | | | | | | [place] [address] | | | | + + + + + + | Cl | 101Comment: Testing | 99 - 109 mmol/L | EXTERNAL | | | | performed at [facility], [address] | | LAB | | | | [address], | | | | | | [place] [address] | | | | + + + + + + | CO2 | 27Comment: Testing | 23 - 32 mmol/L | EXTERNAL | | | | performed at [facility], [address] | | LAB | | | | [address], | | | | | | [place] [address] | | | | + + + + + + | Anion Gap | 12Comment: Testing | 5 - 20 mmol/L | EXTERNAL | | | | performed at [facility], [address] | | LAB | | | [address], | | | | | | [place] [address] | | | | + + + + + + | Glucose, | 118 (H)Comment: Testing | 65 - 99 mg/dL | EXTERNAL | | | Fasting | performed at [facility], [address] | | LAB | | | | [address], | | | | | | [place] [address] | | | | + + + + + + | BUN | 7 (L)Comment: Testing | 8 - 25 mg/dL | EXTERNAL | | | | performed at [facility], [address] | | LAB | | | | [address], | | | | | | [place] [address] | | | | + + + + + + | Creatinine | 0.79Comment: Testing | 0.50 - 1.00 | EXTERNAL | | | | performed at [facility], [address] | mg/dL | LAB | | | | [address], | | | | | | [place] [address] | | | | + + + + + + | BUN/Creatin | 9Comment: Testing | | EXTERNAL | | | ine Ratio | performed at [facility], [address] | | LAB | | | | [address], | | | | | | [place] [address] | | | | + + + + + + | Calcium | 7.5 (L)Comment: Testing | 8.5 - 10.5 | EXTERNAL | | | | performed at [facility], [address] | mg/dL | LAB | | | | [address], | | | | | | [place] [address] | | | | + + + + + + | Protein, | 7.2Comment: Testing | 6.3 - 8.2 g/dL | EXTERNAL | | | Total | performed at [facility], [address] | | LAB | | | | [address], | | | | | | [place] [address] | | | | + + + + + + | Albumin | 3.1 (L)Comment: Testing | 3.3 - 4.8 g/dL | EXTERNAL | | | | performed at [facility], [address] | | LAB | | | | [address], | | | | | | [place] [address] | | | | + + + + + + | Globulin | 4.1Comment: Testing | 1.3 - 4.9 g/dL | EXTERNAL | | | | performed at [facility], [address] | | LAB | | | | [address], | | | | | | [place] [address] | | | | + + + + + + | A/G Ratio | 0.8 (L)Comment: Testing | 1.0 - 2.4 | EXTERNAL | | | | performed at [facility], [address] | | LAB | | | [address], | | | | | | [place] [address] | | | | + + + + + + | Bilirubin | 0.5Comment: Testing | 0.1 - 1.5 mg/dL | EXTERNAL | | | Total | performed at [facility], [address] | | LAB | | | | [address], | | | | | | [place] [address] | | | | + + + + + + | ALP, | 76Comment: Testing | 35 - 115 U/L | EXTERNAL | | | External | performed at [facility], [address] | | LAB | | | [address], | | | | | | [place] [address] | | | | + + + + + + | AST | 43Comment: Testing | 10 - 45 U/L | EXTERNAL | | | | performed at [facility], [address] | | LAB | | | | [address], | | | | | | [place] [address] | | | | + + + + + + | ALT | 25Comment: Testing | 10 - 65 U/L | EXTERNAL | | | | performed at [facility], [address] | | LAB | | | | [facility], | | | | | | [place] [address] | | | | + + + [...] W | | | | | | [facility], | | | | | | [place] [address] | | | | + + + [...] | | | | performed at [facility];[address] | mmol/L | LAB | | | | [address];[place], [place] | | | | | | [address] | | | | + + + [...] | | | | performed at [facility];[address] | | LAB | | | | [address];[place], [place] | | | | | | [address] | | | | + + + [...] | | | | performed at [facility] | | LAB | | | | [address];[place], [place] | | | | | | [address] | | | | + + + [...] | | | | performed at [facility];[address] | mmol/L | LAB | | | | [facility];[place], [place] | | | | | | [address] | | | | + + + [...] | | | | performed at [facility] | | LAB | | | | [address];[place], [place] | | | | | | [address] | | | | + + + [...] | | | | performed at [facility];[address] | | LAB | | | | [address];[place], [place] | | | | | | [address] | | | | + + + [...] EXTERNAL | | | | performed at [facility], [address] | K/uL | LAB | | | | [address], | | | | | | [place] [address] | | | | + + + + + + | Red Blood | 3.40 (L)Comment: Testing | 3.70 - 5.10 | EXTERNAL | | | Cells | performed at [facility], [address] | M/uL | LAB | | | Counted | [address], | | | | | | [place] [address] | | | | + + + + + + | Hemoglobin | 12.0Comment: Testing | 11.3 - 15.5 | EXTERNAL | | | | performed at [facility], [address] | g/dL | LAB | | | | [address], | | | | | | [place] [address] | | | | + + + + + + | Hematocrit, | 35.8Comment: Testing | 34.0 - 46.0 % | EXTERNAL | | | POC | performed at [facility], [address] | | LAB | | | | [address], | | | | | | [place] [address] | | | | + + + + + + | MCV | 105.3 (H)Comment: | 80.0 - 100.0 fl | EXTERNAL | | | | Testing performed at | | LAB | | | | [facility], [address] | | | | | | [place] | | | | | | [address] | | | | + + + + + + | MCH | 35.3 (H)Comment: Testing | 27.0 - 34.0 pg | EXTERNAL | | | | performed at [facility], [address] | LAB | | | | [address], | | | | | | [place] [address] | | | | + + + + + + | MCHC | 33.6Comment: Testing | 32.0 - 35.5 | EXTERNAL | | | | performed at [facility], [address] | g/dL | LAB | | | | [address], | | | | | | [place] [address] | | | | + + + + + + | RDW-CV | 50.8Comment: Testing | 37 - 53 fl | EXTERNAL | | | | performed at [facility], [address] | | LAB | | | | [address], | | | | | | [place] [address] | | | | + + + + + + | Platelet | 149 (L)Comment: Testing | 150 - 400 K/uL | EXTERNAL | | | Count | performed at [facility], [address] | | LAB | | | Plasma | [address], | | | | | | [place] [address] | | | | + + + + + + | MPV | 13.0Comment: Testing | fl | EXTERNAL | | | | performed at [facility], [address] | | LAB | | | | [address], | | | | | | [place] [address] | | | | + + + + + + | Differentia | AUTOMATEDComment: | | EXTERNAL | | | l Type | Testing performed at | | LAB | | | | [facility], [address] | | | | | | [place] | | | | | | [address] | | | | + + + + + + | % Segmented | 52.08Comment: Testing | % | EXTERNAL | | | | performed at [facility], [address] | | LAB | | | Neutrophils | [address], | | | | | | [place] [address] | | | | + + + + + + | % | 32.37Comment: Testing | % | EXTERNAL | | | Lymphocytes | performed at [facility], [address] | | LAB | | | | [address], | | | | | | [place] [address] | | | | + + + + + + | % Monocytes | 10.07Comment: Testing | % | EXTERNAL | | | | performed at [facility], [address] | | LAB | | | [address], | | | | | | [place] [address] | | | | + + + + + + | % | 4.41Comment: Testing | % | EXTERNAL | | | Eosinophils | performed at [facility], [address] | | LAB | | | | [address], | | | | | | [place] [address] | | | | + + + + + + | % Basophils | 1.07Comment: Testing | % | EXTERNAL | | | | performed at [facility], [address] | | LAB | | | | [address], | | | | | | [place] [address] | | | | + + + + + + | Absolute | 5.59Comment: Testing | 1.90 - 7.40 | EXTERNAL | | | Segmented | performed at [facility], [address] | K/uL | LAB | | | Neutrophils | [address], | | | | | | [place] [address] | | | | + + + + + + | Absolute | 3.48Comment: Testing | 1.00 - 3.90 | EXTERNAL | | | Lymphocytes | performed at [facility], [address] | K/uL | LAB | | | | [address], | | | | | | [place] [address] | | | | + + + + + + | Absolute | 1.08 (H)Comment: Testing | 0.00 - 0.80 | EXTERNAL | | | Monocytes | performed at [facility], [address] | K/uL | LAB | | | | [address], | | | | | | [place] [address] | | | | + + + + + + | Absolute | 0.47Comment: Testing | 0.00 - 0.50 | EXTERNAL | | | Eosinophils | performed at [facility], [address] | K/uL | LAB | | | | [address], | | | | | | [place] [address] | | | | + + + + + + | Absolute | 0.12 (H)Comment: Testing | 0.00 - 0.10 | EXTERNAL | | | Basophils | performed at [facility], [address] | K/uL | LAB | | | | [address], | | | | | | [place] [address] | | | | + + + + + + | RBC | NORMAL RBC MORPHComment: | | EXTERNAL | | | Morphology | Testing performed at | | LAB | | | | [facility], [address] | | | | | | [place] | | | | | | [address] | | | | + + + + + + | Differentia | 1+ GIANT PLTComment: | | EXTERNAL | | | l Comments | Testing performed at | | LAB | | | | [facility], [address] | | | | | | [place] | | | | | | [address] | | | | + + [...] | | | | | [place] [address] | | | | + + + + + + | K | 3.2 (L)Comment: Testing | 3.5 - 4.9 | EXTERNAL | | | | performed at [facility], [address] | mmol/L | LAB | | | | [address], | | | | | | [place] [address] | | | | + + + + + + | Cl | 100Comment: Testing | 99 - 109 mmol/L | EXTERNAL | | | | performed at [facility], [address] | | LAB | | | | [address], | | | | | | [place] [address] | | | | + + + + + + | CO2 | 28Comment: Testing | 23 - 32 mmol/L | EXTERNAL | | | | performed at [facility], [address] | | LAB | | | | [address], | | | | | | [place] [address] | | | | + + + + + + | Anion Gap | 13Comment: Testing | 5 - 20 mmol/L | EXTERNAL | | | | performed at [facility], [address] | | LAB | | | | [address], | | | | | | [place] [address] | | | | + + + + + + | Glucose, | 114 (H)Comment: Testing | 65 - 99 mg/dL | EXTERNAL | | | Fasting | performed at [facility], [address] | | LAB | | | | [address], | | | | | | [place] [address] | | | | + + + + + + | BUN | 8Comment: Testing | 8 - 25 mg/dL | EXTERNAL | | | | performed at [facility], [address] | | LAB | | | | [address], | | | | | | [place] [address] | | | | + + + + + + | Creatinine | 0.94Comment: Testing | 0.50 - 1.00 | EXTERNAL | | | | performed at [facility], [address] | mg/dL | LAB | | | | [address], | | | | | | [place] [address] | | | | + + + + + + | BUN/Creatin | 9Comment: Testing | | EXTERNAL | | | ine Ratio | performed at [facility], [address] | | LAB | | | | [address], | | | | | | [place] [address] | | | | + + + + + + | Calcium | 7.8 (L)Comment: Testing | 8.5 - 10.5 | EXTERNAL | | | | performed at [facility], [address] | mg/dL | LAB | | | | [address], | | | | | | [place] [address] | | | | + + + + + + | Protein, | 7.8Comment: Testing | 6.3 - 8.2 g/dL | EXTERNAL | | | Total | performed at [facility], [address] | | LAB | | | [address], | | | | | | [place] [address] | | | | + + + [...] | | | | | [place] [address] | | | | + + + + + + | A/G Ratio | 0.7 (L)Comment: Testing | 1.0 - 2.4 | EXTERNAL | | | | performed at [facility], [address] | | LAB | | | | [address], | | | | | | [place] [address] | | | | + + + + + + | Bilirubin | 0.4Comment: Testing | 0.1 - 1.5 mg/dL | EXTERNAL | | | Total | performed at [facility], [address] | | LAB | | | | [address], | | | | | | [place] [address] | | | | + + + + + + | ALP, | 83Comment: Testing | 35 - 115 U/L | EXTERNAL | | | External | performed at [facility], [address] | | LAB | | | | [address], | | | | | | [place] [address] | | | | + + + + + + | AST | 34Comment: Testing | 10 - 45 U/L | EXTERNAL | | | | performed at [facility], [address] | | LAB | | | | [address], | | | | | | [place] [address] | | | | + + + + + + | ALT | 24Comment: Testing | 10 - 65 U/L | EXTERNAL | | | | performed at [facility], [address] | | LAB | | | | [address], | | | | | | [place] [address] | | | | + + + [...] [address], | | | | | | [place] [address] | | | | + + + [...] | | | | performed at [facility];[address] | | | | | | [address];[place], [place] | | | | | | [address] [...] | | | | performed at [facility] | | | | | | [address];[place], [place] | | | | | | [address] | | | | + + + [...] | | | | performed at [facility];888 | mmol/L | LAB | | | | [address];[place], [place] | | | | | | [address] | | | | + + + [...] | | | | performed at [facility] | | LAB | | | | [address];[place], [place] | | | | | | [address] | | | | + + + [...] TESTING. | | | Testing performed at [facility], [address] | | | [facility] [facility] [place] [address] | | + + + + +---------+ [...] | Testing performed at | | | [facility], [address] [place] [address] | | + + + + +---------+ [...] NONE SEEN to 1+ Testing performed at [address] | | | [place] [address] | | + + + + +---------+ [...] antigen detected by ICA Testing performed at [facility], [address] | | | [place] [address] | | + + + + +---------+ [...] at | | | | | | [facility], [address] | | | | | | [facility] | | | | | | [address] | | | | + + + [...] | | | | | performed at [facility], [address] | | | | | | [facility] | | | | | | [place] [address] | | | | + + + [...] | | | | performed at [facility];[address] | | LAB | | | | [address];[place] | | | | | | [address] | | | | + + + + + + | CMV DNA | NOT DETECTEDComment: | | EXTERNAL | | | QUANTITATIV | Unit: IU/MLTesting | | LAB | | | E INTERP | performed at [facility], [address] | | | | | | [place] | | | | | | [place] [address] | | | | + + + + + + | CMV DNA, | NOT DETECTEDComment: | | EXTERNAL | | | Qual PCR | Unit: COPIES/MLTesting | | LAB | | | | performed at [facility], [address] | | | | | | [place] | | | | | | [place] [address] | | | | + + + [...] | | | | | | DETERMINEDBY [facility] [place] | | | | | | [facility] [...] | | | | | | at [facility], [address] | | | | | | [place] | | | | | | [address] | | | | + + + [...] EXTERNAL | | | | performed at [facility], [address] | K/uL | LAB | | | | [address], | | | | | | [place] [address] | | | | + + + + + + | Red Blood | 3.28 (L)Comment: Testing | 3.70 - 5.10 | EXTERNAL | | | Cells | performed at [facility], [address] | M/uL | LAB | | | Counted | [address], | | | | | | [place] [address] | | | | + + + + + + | Hemoglobin | 11.6Comment: Testing | 11.3 - 15.5 | EXTERNAL | | | | performed at [facility], [address] | g/dL | LAB | | | | [address], | | | | | | [place] [address] | | | | + + + + + + | Hematocrit, | 34.5Comment: Testing | 34.0 - 46.0 % | EXTERNAL | | | POC | performed at [facility], [address] | | LAB | | | | [address], | | | | | | [place] [address] | | | | + + + + + + | MCV | 105.1 (H)Comment: | 80.0 - 100.0 fl | EXTERNAL | | | | Testing performed at | | LAB | | | | [facility], [address] | | | | | | [place] | | | | | | [address] | | | | + + + + + + | MCH | 35.3 (H)Comment: Testing | 27.0 - 34.0 pg | EXTERNAL | | | | performed at [facility], [address] | | LAB | | | | [address], | | | | | | [place] [address] | | | | + + + + + + | MCHC | 33.5Comment: Testing | 32.0 - 35.5 | EXTERNAL | | | | performed at [facility], [address] | g/dL | LAB | | | | [address], | | | | | | [place] [address] | | | | + + + [...] | | | | | [place] [address] | | | | + + + + + + | MPV | 13.0Comment: Testing | fl | EXTERNAL | | | | performed at [facility], [address] | | LAB | | | | [address], | | | | | | [place] [address] | | | | + + + + + + | Differentia | AUTOMATEDComment: | | EXTERNAL | | | l Type | Testing performed at | | LAB | | | | [facility], [address] | | | | | | [place] | | | | | | [address] | | | | + + + + + + | % Segmented | 37.99Comment: Testing | % | EXTERNAL | | | | performed at [facility], [address] | | LAB | | | Neutrophils | [address], | | | | | | [place] [address] | | | | + + + + + + | % | 43.49Comment: Testing | % | EXTERNAL | | | Lymphocytes | performed at [facility], [address] | | LAB | | | | [address], | | | | | | [place] [address] | | | | + + + + + + | % Monocytes | 11.24Comment: Testing | % | EXTERNAL | | | | performed at [facility], [address] | | LAB | | | | [address], | | | | | | [place] [address] | | | | + + + + + + | % | 5.97Comment: Testing | % | EXTERNAL | | | Eosinophils | performed at [facility], [address] | | LAB | | | | [address], | | | | | | [place] [address] | | | | + + + + + + | % Basophils | 1.31Comment: Testing | % | EXTERNAL | | | | performed at [facility], [address] | | LAB | | | | [address], | | | | | | [place] [address] | | | | + + + + + + | Absolute | 4.01Comment: Testing | 1.90 - 7.40 | EXTERNAL | | | Segmented | performed at [facility], [address] | K/uL | LAB | | | Neutrophils | [address], | | | | | | [place] [address] | | | | + + + + + + | Absolute | 4.59 (H)Comment: Testing | 1.00 - 3.90 | EXTERNAL | | | Lymphocytes | performed at [facility], [address] | [address] | LAB | | | | [address], | | | | | | [place] [address] | | | | + + + + + + | Absolute | 1.19 (H)Comment: Testing | 0.00 - 0.80 | EXTERNAL | | | Monocytes | performed at [facility], [address] | [address]/u[address] | LAB | | | | [address], | | | | | | [place] [address] | | | | + + + + + + | Absolute | 0.63 (H)Comment: Testing | 0.00 - 0.50 | EXTERNAL | | | Eosinophils | performed at [facility], [address] | [address] | LAB | | | | [address], | | | | | | [place] [address] | | | | + + + + + + | Absolute | 0.14 (H)Comment: Testing | 0.00 - 0.10 | EXTERNAL | | | Basophils | performed at [facility], [address] | [address] | LAB | | | | [address], | | | | | | [place] [address] | | | | + + + + + + | RBC | NORMAL RBC MORPHComment: | | EXTERNAL | | | Morphology | Testing performed at | | LAB | | | | [facility], [address] | | | | | | [place] | | | | | | [address] | | | | + + + + + + | Differentia | 2+ GIANT PLTComment: | | EXTERNAL | | | l Comments | Testing performed at | | LAB | | | | [facility], [address] | | | | | | [place] | | | | | | [address] | | | | + + + [...] [place] | | | | | | [address] | | | | + + + [...] | | | (REF) | performed at [facility], [address] | | LAB | | | | [address], | | | | | | [place] [address] | | | | + + + [...] | | | | | [place] [address] | | | | + + + [...] | | | | | [place] [address] | | | | + + + [...] | | | | | [place] [address] | | | | + + + + + + | K | 3.0 (L)Comment: Testing | 3.5 - 4.9 | EXTERNAL | | | | performed at [facility], [address] | mmol/L | LAB | | | | [address], | | | | | | [place] [address] | | | | + + + + + + | Cl | 104Comment: Testing | 99 - 109 mmol/L | EXTERNAL | | | | performed at [facility], [address] | | LAB | | | | [address], | | | | | | [place] [address] | | | | + + + + + + | CO2 | 22 (L)Comment: Testing | 23 - 32 mmol/L | EXTERNAL | | | | performed at [facility], [address] | | LAB | | | | [address], | | | | | | [place] [address] | | | | + + + + + + | Anion Gap | 15Comment: Testing | 5 - 20 mmol/L | EXTERNAL | | | | performed at [facility], [address] | | LAB | | | | [address], | | | | | | [place] [address] | | | | + + + + + + | Glucose, | 82Comment: Testing | 65 - 99 mg/dL | EXTERNAL | | | Fasting | performed at [facility], [address] | | LAB | | | | [address], | | | | | | [place] [address] | | | | + + + + + + | BUN | 13Comment: Testing | 8 - 25 mg/dL | EXTERNAL | | | | performed at [facility], [address] | | LAB | | | | [address], | | | | | | [place] [address] | | | | + + + + + + | Creatinine | 1.01 (H)Comment: Testing | 0.50 - 1.00 | EXTERNAL | | | | performed at [facility], [address] | mg/dL | LAB | | | | [address], | | | | | | [place] [address] | | | | + + + + + + | BUN/Creatin | 13Comment: Testing | | EXTERNAL | | | ine Ratio | performed at [facility], [address] | | LAB | | | | [address], | | | | | | [place] [address] | | | | + + + + + + | Calcium | 7.7 (L)Comment: Testing | 8.5 - 10.5 | EXTERNAL | | | | performed at [facility], [address] | mg/dL | LAB | | | | [address], | | | | | | [place] [address] | | | | + + + + + + | Protein, | 7.1Comment: Testing | 6.3 - 8.2 g/dL | EXTERNAL | | | Total | performed at [facility], [address] | | LAB | | | | [address], | | | | | | [place] [address] | | | | + + + + + + | Albumin | 3.2 (L)Comment: Testing | 3.3 - 4.8 g/dL | EXTERNAL | | | | performed at [facility], [address] | | LAB | | | | [address], | | | | | | [place] [address] | | | | + + + + + + | Globulin | 3.9Comment: Testing | 1.3 - 4.9 g/dL | EXTERNAL | | | | performed at [facility], [address] | | LAB | | | | [address], | | | | | | [place] [address] | | | | + + + + + + | A/G Ratio | 0.8 (L)Comment: Testing | 1.0 - 2.4 | EXTERNAL | | | | performed at [facility], [address] | | LAB | | | | [address], | | | | | | [place] [address] | | | | + + + + + + | Bilirubin | 0.4Comment: Testing | 0.1 - 1.5 mg/dL | EXTERNAL | | | Total | performed at [facility], [address] | | LAB | | | | [address], | | | | | | [place] [address] | | | | + + + + + + | ALP, | 76Comment: Testing | 35 - 115 U/L | EXTERNAL | | | External | performed at [facility], [address] | | LAB | | | | [address], | | | | | | [place] [address] | | | | + + + + + + | AST | 26Comment: Testing | 10 - 45 U/L | EXTERNAL | | | | performed at [facility], [address] | | LAB | | | [address], | | | | | | [place] [address] | | | | + + + + + + | ALT | 19Comment: Testing | 10 - 65 U/L | EXTERNAL | | | | performed at [facility], [address] | | LAB | | | | [address], | | | | | | [place] [address] | | | | + + + [...] | | | | | [place] [address] | | | | + + + [...] LAB | | | | performed at [facility], [address] | | | | | | [address], | | | | | | [place] [address] | | | | + + + [...] | | | Urine | performed at [facility], [address] | | LAB | | | Random | [address], | | | | | | [place] [address] | | | | + + + [...] | Testing performed | | | at [facility], [address] [place] [address] | | + + + + +---------+ [...] LA/Ao: 1.57 D-E Excursion: 2.11 cm E-F [place]: 0.09 m/s | | | EPSS: 0.48 [...] TV A Billy: 0.66 m/s TV Dec [place]: 4.36 m/s2 TV Dec | | | Time: 184.41 ms TV E Billy: 0.80 m/s TV E/A Ratio: 1.21 | | | Top Spotter: NEDRA Authenticated by: Gil Coronel MD Report [...] | Index (A-L): 40.51 ml/m2LAAs A2C: 24.56 [id number] A-L A2C: 76.32 mlLAESV MOD A2C: | | 73.52 mlLALs A2C: 6.71 cmLAAs A4C: 24.96 ld2ARTPA A-L A4C: 79.86 mlLAESV MOD A4C: | | 77.20 mlLALs A4C: 6.62 cmAo Diam: 2.73 cmAV Cusp: 2.27 cmLA Diam: 4.29 | | cmLA/Ao: 1.57D-E Excursion: 2.11 cmE-F [place]: 0.09 m/sEPSS: 0.48 cmHR: 77.41 | | BPMAV maxP.05 mmHgAV meanP.21 mmHgAV Vmax: 1.73 m/Sorin Vmean: 1.25 m/Sorin | | VTI: 34.68 cmAVA Vmax: 2.07 cm2AVA (VTI): 1.85 [id number] Dopp: 2.60 l/hrdb7VFMD | | Dopp: 5.05 l/minHR: 78.81 BPMLVOT [...] | m/sTV A Billy: 0.66 m/sTV Dec [place]: 4.36 m/s2TV Dec Time: 184.41 msTV E Billy: 0.80 | | m/sTV E/A Ratio: 1.21 Top Spotter: Amberhenticated by: Gil Lott | | Date/Time: [...] | |D-E Excursion: 2.11 cm | |E-F [place]: 0.09 m/s | |EPSS: 0.48 cm | [...] A Billy: 0.66 m/s | |TV Dec [place]: 4.36 m/s2 | |TV Dec Time: 184.41 ms | |TV E Billy: 0.80 m/s | |TV E/A Ratio: 1.21 | | | |Top Spotter: GD | |Authenticated by: Gil Coronel MD [...] EXTERNAL LAB | | performed at [facility];[address] [place] [address];[place] [address] 027 NAP1 BI | | | 027 NAP1 BI PRESUMPTIVE NEGATIVE | | | Detection of 027 NAP1 BI strains of C. difficile is presumptive and | | | for epidemiological purposes and not intended to guide or monitor | | | treatment for C. difficile infections. Testing performed at [facility] | | | [facility];[place] [address] | | + + + + +---------+ [...] | | | | | | [place] [address] | | | | + + + + + + | Complement | 19.4Comment: Testing | 10 - 40 mg/dL | EXTERNAL | | | Comp 4 | performed at [facility], [address] | | LAB | | | | [address], | | | | | | [place] [address] | | | | + + + [...] | | | | | | ACUTE [place] Testing | | | | | | performed at [facility];[address] | | | | | | [facility];[place], [place] | | | | | | [address] | | | | + + + [...] | LAB | | | | [facility];[address] | [address];[place] [address] | | | | + + + + + + | Red Blood | 3.27 (L)Comment: Testing | 3.70 - 5.10 | EXTERNAL | | | Cells | performed at [facility];[address] | M/uL | LAB | | | Counted | [address];[place] | | | | | | [address] | | | | + + + + + + | Hemoglobin | 11.2 (L)Comment: Testing | 11.3 - 15.5 | EXTERNAL | | | | performed at [facility];[address] | g/dL | LAB | | | | [address];[place] | | | | | | [address] | | | | + + + + + + | Hematocrit, | 34.4Comment: Testing | 34.0 - 46.0 % | EXTERNAL | | | POC | performed at [facility];[address] | | LAB | | | | [address];[place] | | | | | | [address] | | | | + + + + + + | MCV | 105.2 (H)Comment: | 80.0 - 100.0 fl | EXTERNAL | | | | Testing performed at | | LAB | | | | [facility];[address];[place] [address] | | | | + + + + + + | MCH | 34.2 (H)Comment: Testing | 27.0 - 34.0 pg | EXTERNAL | | | | performed at [facility];[address] | | LAB | | | | [address];[place] | | | | | | [address] | | | | + + + + + + | MCHC | 32.5Comment: Testing | 32.0 - 35.5 | EXTERNAL | | | | performed at [facility];[address] | g/dL | LAB | | | | [address];[place] | | | | | | [address] | | | | + + + + + + | RDW-CV | 50.3Comment: Testing | 37 - 53 fl | EXTERNAL | | | | performed at [facility];[address] | | LAB | | | | [address];[place] | | | | | | [address] | | | | + + + + + + | Platelet | 160Comment: Testing | 150 - 400 K/uL | EXTERNAL | | | Count | performed at [facility];[address] | | LAB | | | Plasma | [address];[place] | | | | | | [address] | | | | + + + + + + | MPV | 11.1Comment: Testing | fl | EXTERNAL | | | | performed at [facility];[address] | | LAB | | | | [address];[place] | | | | | | [address] | | | | + + + + + + | Differentia | AUTOMATEDComment: | | EXTERNAL | | | l Type | Testing performed at | | LAB | | | | [facility];[address];[place] [address] | | | | + + + + + + | % Segmented | 50.65Comment: Testing | % | EXTERNAL | | | | performed at [facility];[address] | | LAB | | | Neutrophils | [address];[place] | | | | | | [address] | | | | + + + + + + | % | 37.06Comment: Testing | % | EXTERNAL | | | Lymphocytes | performed at [facility];[address] | | LAB | | | | [address];[place] | | | | | | [address] | | | | + + + + + + | % Monocytes | 9.60Comment: Testing | % | EXTERNAL | | | | performed at [facility];[address] | | LAB | | | | [address];[place] | | | | | | [address] | | | | + + + + + + | % | 1.30Comment: Testing | % | EXTERNAL | | | Eosinophils | performed at [facility];[address] | | LAB | | | | [address];[place] | | | | | | [address] | | | | + + + + + + | % Basophils | 1.39Comment: Testing | % | EXTERNAL | | | | performed at [facility];[address] | | LAB | | | | [address];[place] | | | | | | [address] | | | | + + + + + + | Absolute | 6.64Comment: Testing | 1.90 - 7.40 | EXTERNAL | | | Segmented | performed at [facility];[address] | K/uL | LAB | | | Neutrophils | [address];[place] | | | | | | [address] | | | | + + + + + + | Absolute | 4.86 (H)Comment: Testing | 1.00 - 3.90 | EXTERNAL | | | Lymphocytes | performed at [facility];[address] | K/uL | LAB | | | | [address];[place] | | | | | | [address] | | | | + + + + + + | Absolute | 1.26 (H)Comment: Testing | 0.00 - 0.80 | EXTERNAL | | | Monocytes | performed at [facility];[address] | K/uL | LAB | | | | [address];[place] | | | | | | [address] | | | | + + + + + + | Absolute | 0.17Comment: Testing | 0.00 - 0.50 | EXTERNAL | | | Eosinophils | performed at [facility];[address] | K/uL | LAB | | | | [address];[place] | | | | | | [address] | | | | + + + + + + | Absolute | 0.18 (H)Comment: Testing | 0.00 - 0.10 | EXTERNAL | | | Basophils | performed at [facility];[address] | K/uL | LAB | | | | [address];[place] | | | | | | [address] | | | | + + + [...] | | | | performed at [facility];[address] | | LAB | | | | [address];[place] | | | | | | [address] | | | | + + + [...] | | | | performed at [facility] | | | | | | [address] [facility];[place], [place] | | | | | | [address] | | | | + + + [...] | | | | performed at [facility];[address] | mmol/L | LAB | | | | [address];[place] | | | | | | [address] | | | | + + + + + + | K | 3.7Comment: SLT | 3.5 - 4.9 | EXTERNAL | | | | HEMOLYSISTesting | mmol/L | LAB | | | | performed at [facility];[address] | | | | | | [address];[place] | | | | | | [address] | | | | + + + + + + | Cl | 110 (H)Comment: Testing | 99 - 109 mmol/L | EXTERNAL | | | | performed at [facility];[address] | | LAB | | | | [address];[place] | | | | | | [address] | | | | + + + + + + | CO2 | 24Comment: Testing | 23 - 32 mmol/L | EXTERNAL | | | | performed at [facility];[address] | | LAB | | | | [address];[place] | | | | | | [address] | | | | + + + + + + | Anion Gap | 13Comment: Testing | 5 - 20 mmol/L | EXTERNAL | | | | performed at [facility];[address] | | LAB | | | | [address];[place] | | | | | | [address] | | | | + + + + + + | Glucose, | 109 (H)Comment: Testing | 65 - 99 mg/dL | EXTERNAL | | | Fasting | performed at [facility];[address] | | LAB | | | | [address];[place] | | | | | | [address] | | | | + + + + + + | BUN | 24Comment: Testing | 8 - 25 mg/dL | EXTERNAL | | | | performed at [facility];[address] | | LAB | | | | [address];[place] | | | | | | [address] | | | | + + + + + + | Creatinine | 1.7 (H)Comment: Testing | 0.50 - 1.00 | EXTERNAL | | | | performed at [facility];[address] | mg/dL | LAB | | | | [address];[place] | | | | | | [address] | | | | + + + + + + | BUN/Creatin | 14Comment: Testing | | EXTERNAL | | | ine Ratio | performed at [facility];[address] | | LAB | | | | [address];[place] | | | | | | [address] | | | | + + + + + + | Calcium | 7.4 (L)Comment: Testing | 8.5 - 10.5 | EXTERNAL | | | | performed at [facility];[address] | mg/dL | LAB | | | | [address];[place] | | | | | | [address] | | | | + + + + + + | Protein, | 7.0Comment: Testing | 6.3 - 8.2 g/dL | EXTERNAL | | | Total | performed at [facility];[address] | | LAB | | | | [address];[place] | | | | | | [address] | | | | + + + + + + | Albumin | 2.6 (L)Comment: Testing | 3.3 - 4.8 g/dL | EXTERNAL | | | | performed at [facility];[address] | | LAB | | | | [address];[place] | | | | | | [address] | | | | + + + + + + | Globulin | 4.3Comment: Testing | 1.3 - 4.9 g/dL | EXTERNAL | | | | performed at [facility];[address] | | LAB | | | | [address];[place] | | | | | | [address] | | | | + + + + + + | A/G Ratio | 0.6 (L)Comment: Testing | 1.0 - 2.4 | EXTERNAL | | | | performed at [facility];[address] | | LAB | | | | [address];[place] | | | | | | [address] | | | | + + + + + + | Bilirubin | 0.4Comment: Testing | 0.1 - 1.5 mg/dL | EXTERNAL | | | Total | performed at [facility];[address] | | LAB | | | | [address];[place] | | | | | | [address] | | | | + + + + + + | ALP, | 92Comment: Testing | 35 - 115 U/L | EXTERNAL | | | External | performed at [facility];[address] | | LAB | | | | [address];[place] | | | | | | [address] | | | | + + + + + + | AST | 35Comment: SLT | 10 - 45 U/L | EXTERNAL | | | | HEMOLYSISTesting | | LAB | | | | performed at [facility];[address] | | | | | | [address];[place] | | | | | | [address] | | | | + + + + + + | ALT | 29Comment: Testing | 10 - 65 U/L | EXTERNAL | | | | performed at [facility];[address] | | LAB | | | | [address];[place], [place] | | | | | | [address] | | | | + + + [...] | | | | | at [facility];[address] [place] [address] | | | | | | Blvd;[place] [address] | | | | + + + [...] | | | | performed at [facility];888 | uIU/mL | LAB | | | | [address];[place], [place] | | | | | | [address] | | | | + + + [...] | | | | | [place] CORONEL (915) on | | | | | | [...] | | | | | | ACUTE [place] Testing | | | | | | performed at [facility];[address] | | | | | [address];[place], [place] | | | | | | [address] | | | | + + + [...] GROWTH | | | Testing performed at [facility], | | | [address] [place] [address] | | + + + + +---------+ [...] | | study for comparison: None FINDINGS: Tree Trimming Supervisor 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 | | | degenerative [...] study | | for comparison: None FINDINGS: Tree Trimming Supervisor 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 degenerative changes of the [...] Testing | | | performed at [facility];[address] [place] [address];[place] [address] | | + + + + +---------+ [...] | | | | | at [facility];[address] [place] [address] | | | | | | [facility];[place] [address] | | | | + + + [...] | | | | performed at [facility];[address] | | LAB | | | | [address];[place] | | | | | | [address] | | | | + + + [...] | | | | performed at [facility];[address] | | LAB | | | | [address];[place] | | | | | | [address] | | | | + + + [...] | | | | performed at [facility];[address] | mmol/L | LAB | | | | [facility];[place], [place] | | | | | | [address] | | | | + + + [...] EXTERNAL | | | | performed at [facility], [address] | | LAB | | | | [address] [facility], | | | | | | [place] [address] | | | | + + + [...] | LAB | | | | [facility], [address] | | | | | | [place] | | | | | | [address] | | | | + + + [...] | | | | | ONLY, -COMPUTER ([phone]), | | | | | | field map editor Shala Gramajo | | | | | | (25) on 01/14/2015 | | | | | | 11:17:50 PM | | | | + + + + + + + + | Specimen | + + | | + + + + + | Narrative | Performed At | + + + | [facility] | EXTERNAL LAB | + [...] | | | | performed at [facility] | | LAB | | | | [address];[place] | | | | | | [address] | | | | + + + [...] | | | | performed at [facility];[address] | | LAB | | | | [address];[place], [place] | | | | | | [address] | | | | + + + [...] | | | | performed at [facility] | | | | | | [address];[place], [place] | | | | | | [address] | | | | + + + [...] | | | | performed at [facility];[address] | | LAB | | | | [address];[place] | | | | | | [address] | | | | + + + [...] | | | | performed at [facility];[address] | | LAB | | | | [address];[place], [place] | | | | | | [address] | | | | + + + [...] | LAB | | | | [facility];[address];[place] [address] | | | | + + + + + + | Red Blood | 4.17Comment: Testing | 3.70 - 5.10 | EXTERNAL | | | Cells | performed at [facility];[address] | M/uL | LAB | | | Counted | [address];[place] | | | | | | [address] | | | | + + + + + + | Hemoglobin | 14.6Comment: Testing | 11.3 - 15.5 | EXTERNAL | | | | performed at [facility];888 | g/dL | LAB | | | | [address];[place] | | | | | | [address] | | | | + + + + + + | Hematocrit, | 42.7Comment: Testing | 34.0 - 46.0 % | EXTERNAL | | | POC | performed at [facility];[address] | | LAB | | | | [address];[place] | | | | | | [address] | | | | + + + + + + | MCV | 102.3 (H)Comment: | 80.0 - 100.0 fl | EXTERNAL | | | | Testing performed at | | LAB | | | | [facility];[address];[place] [address] | | | | + + + + + + | MCH | 35.0 (H)Comment: Testing | 27.0 - 34.0 pg | EXTERNAL | | | | performed at [facility];[address] | | LAB | | | | [address];[place] | | | | | | [address] | | | | + + + + + + | MCHC | 34.2Comment: Testing | 32.0 - 35.5 | EXTERNAL | | | | performed at [facility];888 | g/dL | LAB | | | | [address];[place] | | | | | | [address] | | | | + + + + + + | RDW-CV | 49.9Comment: Testing | 37 - 53 fl | EXTERNAL | | | | performed at [facility];[address] | | LAB | | | | [address];[place] | | | | | | [address] | | | | + + + + + + | Platelet | 209Comment: Testing | 150 - 400 K/uL | EXTERNAL | | | Count | performed at [facility];[address] | | LAB | | | Plasma | [address];[place] | | | | | | [address] | | | | + + + + + + | MPV | 11.1Comment: Testing | fl | EXTERNAL | | | | performed at [facility];[address] | | LAB | | | | [address];[place] | | | | | | [address] | | | | + + + + + + | RBC | 1+Comment: GIANT | | EXTERNAL | | | Morphology | PLATELETS1+MACROTesting | | LAB | | | | performed at [facility];[address] | | | | | | [address];[place] | | | | | | [address] | | | | | |Testing performed at [facility];[address];[place] [address] | | | | | | | | | | + + + + + + | Differentia | MANUALComment: Testing | | EXTERNAL | | | l Type | performed at [facility];[address] | | LAB | | | | [address];[place] | | | | | | [address] | | | | + + + + + + | Segmented | 58Comment: Testing | % | EXTERNAL | | | Neutrophils | performed at [facility];[address] | | LAB | | | Manual | [address];[place] | | | | | | [address] | | | | + + + + + + | Lymphocytes | 32Comment: Testing | % | EXTERNAL | | | Manual | performed at [facility];[address] | | LAB | | | | [address];[place] | | | | | | [address] | | | | + + + + + + | Monocytes | 9Comment: Testing | % | EXTERNAL | | | Manual | performed at [facility];[address] | | LAB | | | | [address];[place] | | | | | | [address] | | | | + + + + + + | Eosinophils | 1Comment: Testing | % | EXTERNAL | | | Manual | performed at [facility];[address] | | LAB | | | | [address];[place] | | | | | | [address] | | | | + + + + + + | Absolute | 9.39 (H)Comment: Testing | 1.90 - 7.40 | EXTERNAL | | | Neutrophils | performed at [facility];[address] | K/uL | LAB | | | | [address];[place] | | | | | | [address] | | | | + + + + + + | Absolute | 5.18 (H)Comment: Testing | 1.00 - 3.90 | EXTERNAL | | | Lymphocytes | performed at [facility];[address] | K/uL | LAB | | | | [address];[place] | | | | | | [address] | | | | + + + + + + | Absolute | 1.46 (H)Comment: Testing | 0.00 - 0.80 | EXTERNAL | | | Monocytes | performed at [facility];[address] | K/uL | LAB | | | | [address];[place] | | | | | | [address] | | | | + + + + + + | Absolute | 0.16Comment: Testing | 0.00 - 0.50 | EXTERNAL | | | Eosinophils | performed at [facility];[address] | K/uL | LAB | | | | [address];[place] | | | | | | [address] | | | | + + + + + + | Na | 140Comment: Testing | 135 - 143 | EXTERNAL | | | | performed at [facility] | mmol/L | LAB | | | | [address];[place] | | | | | | [address] | | | | + + + + + + | K | 2.8 (L)Comment: Testing | 3.5 - 4.9 | EXTERNAL | | | | performed at [facility];[address] | mmol/L | LAB | | | | [address];[place] | | | | | | [address] | | | | + + + + + + | Cl | 100Comment: Testing | 99 - 109 mmol/L | EXTERNAL | | | | performed at [facility];[address] | | LAB | | | | [address];[place] | | | | | | [address] | | | | + + + + + + | CO2 | 29Comment: Testing | 23 - 32 mmol/L | EXTERNAL | | | | performed at [facility];[address] | | LAB | | | | [address];[place] | | | | | | [address] | | | | + + + + + + | Anion Gap | 14Comment: Testing | 5 - 20 mmol/L | EXTERNAL | | | | performed at [facility];[address] | | LAB | | | | [address] [address];[place] | | | | | | [address] | | | | + + + + + + | Glucose, | 107 (H)Comment: Testing | 65 - 99 mg/dL | EXTERNAL | | | Fasting | performed at [facility];[address] | | LAB | | | | [address];[place] | | | | | | [address] | | | | + + + + + + | BUN | 28 (H)Comment: Testing | 8 - 25 mg/dL | EXTERNAL | | | | performed at [facility] | | LAB | | | | [address];[place] | | | | | | [address] | | | | + + + + + + | Creatinine | 2.4 (H)Comment: Testing | 0.50 - 1.00 | EXTERNAL | | | | performed at [facility];888 | mg/dL | LAB | | | | [address];[place] | | | | | | [address] | | | | + + + + + + | BUN/Creatin | 12Comment: Testing | | EXTERNAL | | | ine Ratio | performed at [facility];888 | | LAB | | | | [address];[place] | | | | | | [address] | | | | + + + + + + | Calcium | 8.1 (L)Comment: Testing | 8.5 - 10.5 | EXTERNAL | | | | performed at [facility];888 | mg/dL | LAB | | | | [address];[place] | | | | | | [address] | | | | + + + + + + | Protein, | 9.3 (H)Comment: Testing | 6.3 - 8.2 g/dL | EXTERNAL | | | Total | performed at [facility];[address] | | LAB | | | | [address];[place] | | | | | | [address] | | | | + + + + + + | Albumin | 3.3Comment: Testing | 3.3 - 4.8 g/dL | EXTERNAL | | | | performed at [facility];888 | | LAB | | | | [address];[place] | | | | | | [address] | | | | + + + + + + | Globulin | 6.0 (H)Comment: Testing | 1.3 - 4.9 g/dL | EXTERNAL | | | | performed at [facility];888 | | LAB | | | | [address];[place] | | | | | | [address] | | | | + + + + + + | A/G Ratio | 0.5 (L)Comment: Testing | 1.0 - 2.4 | EXTERNAL | | | | performed at [facility];[address] | | LAB | | | | [address];[place] | | | | | | [address] | | | | + + + + + + | Bilirubin | 0.4Comment: Testing | 0.1 - 1.5 mg/dL | EXTERNAL | | | Total | performed at [facility];[address] | | LAB | | | | [address];[place] | | | | | | [address] | | | | + + + + + + | ALP, | 129 (H)Comment: Testing | 35 - 115 U/L | EXTERNAL | | | External | performed at [facility];[address] | | LAB | | | | [address];[place] | | | | | | [address] | | | | + + + + + + | AST | 39Comment: Testing | 10 - 45 U/L | EXTERNAL | | | | performed at [facility];[address] | | LAB | | | | [address];[place] | | | | | | [address] | | | | + + + + + + | ALT | 38Comment: Testing | 10 - 65 U/L | EXTERNAL | | | | performed at [facility];[address] | | LAB | | | | [address];[place] | | | | | | [address] | | | | + + + [...] | | | | | at [facility];[address] | | | | | | [address];[place] [address] | | | | + + + + + + | CK, Total | 151Comment: Testing | 30 - 240 U/L | EXTERNAL | | | | performed at [facility];888 | | LAB | | | | [address];[place] | | | | | | [address] | | | | + + + [...] | | | | performed at [facility];888 | | | | | | [address];[place] | | | | | | [address] | | | | + + + + + + | aPTT, | 26Comment: Testing | 23 - 32 seconds | EXTERNAL | | | Patient | performed at [facility];888 | | LAB | | | | [address];[place] | | | | | | [address] | | | | + + + + + + | CK-MB | 3.9 (H)Comment: Testing | 0.5 - 3.6 ng/mL | EXTERNAL | | | | performed at [facility];[address] | | LAB | | | | [address];[place], [place] | | | | | | [address] | | | | + + + [...] | | | | | | ACUTE [place] Testing | | | | | | performed at [facility] | | | | | | [address] [facility];[place], [place] | | | | | | [address] | | | | + + + [...]
--- OUTSIDE RECORDS SUMMARY | ~2019-10-16 | XMS | Encounter Summary ---
Demographics + + + | Address | [address] | | | [place] [address] | + + + | Home Phone | | + + + | Preferred Language | Unknown | + + + | Marital Status | Single | + + + | Advent Affiliation | 1041 | + + + | Race | Unknown | + + + | Ethnic Group | Unknown | + + + Author + + + | Author | [facility] | | | and [place] | + + + | Organization | [facility] | | | and [...] Team Providers + +------+ + | Care Evp [employer] Founder Name | Role | Phone | + [...] | | Chronic | [address] | [place], [place] | | | | | atrial | [place], | [address] Phone: | | | | | fibrillation | [place] | [phone] | | | | | , | [address] | Fax: | | | | | unspecified | Phone: | [phone] | | | | | ([facility]LY [facility]) | [phone] | | | | | | Procedures | Fax: | | | | | | Consult | [phone] | | + +--------+ + + + + Encounter Details +--------+---------+ + + + | Date | Type | Department | Care Team | Description | +--------+---------+ + + + | 09/26/ | Office | [facility] | AlvesColleenyDO | Tachycardia (Primary | | 2020 | Visit | CARDIOLOGY [place] | [address] | Dx); Edema, | | | | [address] | [place], [place] | unspecified type; | | | | [address] | [address] | Paroxysmal atrial | | | | [place], [place] | | fibrillation (HCC) | | | | [address] | | | | | | [phone] | | | +--------+---------+ + + + [...] Alves DO - 09/27/2019 3:20 PM PDT [facility] Cardiology Cardiology Consult Note Reason for [...] Procedure: COLONOSCOPY; Surgeon: Juan Ramey MD; Location: [facility]; Service: G astroenterology; Laterality: N/A; [...] file Gets together: Not on file Attends caodaism service: Not on file Active member of [...] by herself Single No kids 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
--- OUTSIDE RECORDS SUMMARY | ~2019-10-16 | XMS | Encounter Summary ---
Demographics + + + | Address | [address] | | | [place] [address] | + + + | Home Phone [...] + + + | Author | [facility] | + + + | Organization | [facility] | + + + | Address | Unknown | + + + | Phone | Unavailable | + + + Care Team Providers + +------+ + | Care Manager Pathology Name | Role | Phone | + [...] | | | | | [place], | [place], [place] | | | | | [place] [address] | [address] | | | | | [phone] | | | +--------+ + + + [...]
--- OUTSIDE RECORDS SUMMARY | ~2019-10-16 | XMS | Encounter Summary ---
Demographics + + + | Address | [address] | | | [place] [address] | + + + | Home Phone | | + + + | Preferred Language | Unknown | + + + | Marital Status | Single | + + + | Restorationism Affiliation | 1041 | + + + | Race | Unknown | + + + | Ethnic Group | Unknown | + + + Author + + + | Author | [facility] | | | and [place] | + + + | Organization | [facility] | [...] Team Providers + +------+ + | Care Process Development Manager Name | Role | Phone | [...] [address] | Dx) | | | | [place], | [place], [place] | | | | | [place] [address] | [address] | | | | | [phone] | | | +--------+ + + + [...] | 10/24/ | Office | Cardiology | Alves, Yaquelin, DO | | | 2019 | Visit | | [address] | | | | | | [place] | | | | | | [address] | | | | | | | | +--------+---------+ + + + documented as of this encounter Visit Diagnoses + + | Diagnosis | + + | Hypoxemia - Primary | + + documented in this encounter
--- OUTSIDE RECORDS SUMMARY | ~2019-10-16 | XMS | Clinical Summary ---
Demographics + + + | Address | [address] | | | [place] [address] | + + + | Home Phone [...] Team Providers + +------+ + | Care Automotive Engineering Teacher Name | Role | Phone | [...] + + +---------+------+------+-------+ | warfarin | Take 5 mg by mouth 2 | | 0 | | | Activ | | (COUMADIN) 5 mg | times daily. | | | | | [...] + + +---------+------+------+-------+ | dilTIAZem | Take 360 mg by mouth | | 0 | | | Activ | | (CARDIZEM CD) 180 mg | Daily. | | | | | e | | 24 hr capsule | | | | | | | + + + +---------+------+------+-------+ | furosemide (LASIX) | Take 1 tablet by | 30 | 11 | 05/0 | 05/0 | Activ | | 20 mg tablet | mouth Daily. | tablet | | 7/20 | 7/20 | e | | | | | | 20 | 21 | | + + + +---------+------+------+-------+ | furosemide (LASIX) | Take 20 mg by mouth | | 0 | | 05/0 | Disco | | 20 mg tablet | Daily. | | | | 7/20 | ntinu | | | | | | | 20 | ed | | | | | | | | (Ther | | | | | | | | apy | | | | | | | | compl | | | | | | | | eted) | + + + +---------+------+------+-------+ | fluticasone | 1 spray by Nasal | | 0 | | 05/0 | Disco | | (FLONASE) 50 | route Daily. | | | | 7/20 | ntinu | | mcg/nasal spray | | | | | 20 | ed | | | | | | | | (Ther | | | | | | | | apy | | | | | | | | compl | | | | | | | | eted) | + + + +---------+------+------+-------+ | azaTHIOprine | Take 50 mg by mouth | | 0 | | 05/0 | Disco | | (IMURAN) 50 mg | Daily. | | | | 7/20 | ntinu | | tablet | | | | | 20 | ed | | | | | | | | (Ther | | | | | | | | apy | | | | | | | | compl | | | | | | | | eted) | + + + +---------+------+------+-------+ | metoprolol | Take 100 mg by mouth | | 0 | | 05/0 | Disco | | tartrate (LOPRESSOR) | 2 times daily. | | | | 7/20 | ntinu | | 50 mg tablet | | | | | 20 | ed | | | | | | | | (Ther | | | | | | | | apy | | | | | | | | compl | | | | | | | | eted) | + + + +---------+------+------+-------+ | methadone 10 mg | Take 10 mg by mouth | | 0 | | 05/0 | Disco | | tablet | 2 times daily. | | | | 7/20 | ntinu | | | | | | | 20 | ed | | | | | | | | (Ther | | | | | | | | apy | | | | | | | | compl | | | | | | | | eted) | + + + +---------+------+------+-------+ | | Take 1 tablet by | | 0 | | 05/0 | Disco | | HYDROcodone-acetamin | mouth every 6 hours | | | | 7/20 | ntinu | | ophen (NORCO) 5-325 | as needed. | | | | 20 | ed | | mg per tablet | | | | | | (Ther | | | | | | | | apy | | | | | | | | compl | | | | | | | | eted) | + + + +---------+------+------+-------+ | digoxin (LANOXIN) | Take 125 mcg by | | 0 | | 05/0 | Disco | | 125 mcg tablet | mouth Daily. | | | | 12/09 | ntinu | | | | | | | 20 | ed | + + + +---------+------+------+-------+ Active Problems + + + | Problem | Noted Date | + + + | Paroxysmal atrial [...] | 04/23/2013 | + + + Encounters +--------+---------+ + + + | Date | Type | Specialty | Care Team | Description | +--------+---------+ + + + | 09/26/ | Office | Cardiology | Maria Elena Alves DO | Tachycardia (Primary | | 2020 | Visit | | | Dx); Edema, | | | | | | unspecified type; | | | | | | Paroxysmal atrial | | | | | | fibrillation (HCC) | +--------+---------+ + + + from Last 3 Months [...] + + + + Plan of Treatment +--------+---------+ + + + | Date | Type | Specialty | Care Team | Description | +--------+---------+ + + + | 10/24/ | Office | Cardiology | Maria Elena Alves DO | | | 2019 | Visit | | [address] | | | | | | [place] | | | | | | [address] | | | | | | | | +--------+---------+ + + + + + + + [...] + + | Colorectal Cancer | | 01/17/2015 | | | Screening | 5 | | | | (Colonoscopy) | | | [...] + + from Last 3 Months Results ECG 12 lead (09/27/2019 3:15 PM [...] | | | | | | by MARIA ELENA ALVES MD | | | | | | ([id number]) on 09/28/2019 | | | | | [...] | [employer] | MOD[facility] | [id number] | 05/23/19 | | | Medica | | | HEALTH | | 14-Pre | | | re | | | MDCR | | sent | | | | + +--------+ +--------+ +---------+--------+ | [employer] | [employer] | [id number] | 05/23/19 | | | Medica | | | HEALTH | | 19-Pre | | | re | | | MDCR | | sent | | | | + +--------+ +--------+ +---------+--------+ | [employer] | [employer] | [id number] | 05/30/19 | [phone] | | Medica | | MEDICAID HMO [...] [place] | al/Fam | | 1946 | [phone] | | | [place] | | | 1 (Home) | [place], [place] | | | | | | | [address] | + +--------+ +--------+ + + | Opal Petty | Person | Self | [birth year] | [address] | | [place] | al/Fam | | 1946 | [phone] | [address] | | | [place] | | | 1 (Home) | [place], [place] | | | | | | | [address] | + +--------+ +--------+ + + Advance Directives + + + + + | Type | Date Recorded | Patient | Explanation | | | | Geosciences Professor | | + + + + + | Power of | | | | | Photo Machine Operator | | | | + + + + + | Advance | 05/10/2014 | | | | Directive | 12:33 PM | | | + + + + +
--- OUTSIDE RECORDS SUMMARY | ~2019-10-16 | XMS | Encounter Summary ---
Demographics + + + | Address | [address] | | | [place] [address] | + + + | Home Phone | | + + + | Preferred Language | Unknown | + + + | Marital Status | Unknown | + + + | Amish Affiliation | Unknown | + + + | Race | Unknown | + + + | Ethnic Group | Unknown | + + + Author + + + | Author | [facility] | + + + | Organization | [facility] | + + + | Address | Unknown | + + + | Phone | Unavailable | + + + Care Team Providers + +------+ + | Care Shoe Trimmer Name | Role | Phone | + [...] | | [address] | [facility] [place] | | | | | [place], | [address] | | | | | [place] [address] | [phone] | | | | | [phone] | | | +--------+ + + + [...] + | [facility] | | | [phone] | | [facility] | | | | + +---------+ + + | [facility] | | [place], [place] | [phone] | | HOSPITAL | | | | + +---------+ + + documented in this encounter Visit Diagnoses Not on filedocumented in this encounter"
--- OUTSIDE RECORDS SUMMARY | ~2019-10-16 | XMS | Encounter Summary ---
Demographics + + + | Address | [address] | | | [place] [address] | + + + | Home Phone [...] Team Providers + +------+ + | Care Order Entry Clerk Name | Role | Phone | + +------+ + | Yovani Santana MD | PCP | | + +------+ + Encounter Details +--------+ + + + + | Date | Type | Department | Care Team | Description | +--------+ + + + + | 03/26/ | Hospital | [facility] | Mel[place], Gary, | Hypoxemia; Kyphosis | | 2014 | Encounter | MED CTR PULMONARY | MD [address] | deformity of spine | | | | FUNCTION [address] | [place], [place] | | | | | [place], | [address] | | | | | [place] [address] | | | | | | [phone] | | | +--------+ + + + [...] | | | | | | [facility] | | | | | | [address] | | | | | | | [...] 03/26/14Electronically signed by: Gary [place] MD [facility] | | [facility] | | | |No prior pulmonary function tests available for comparison. | | | |Test performed: 03/26/14 | |Electronically signed by: Gary Mel[place] MD 03/27/2014 13:24 | |[facility] | + + documented in this encounter Visit Diagnoses + + | Diagnosis | + + | Hypoxemia | + + | Kyphosis deformity of spine Kyphosis (acquired) (postural) | + + documented in this encounter"
--- OUTSIDE RECORDS SUMMARY | ~2019-10-16 | XMS | Encounter Summary ---
Demographics + + + | Address | [address] | | | [place] [address] | + + + | Home Phone [...] Team Providers + +------+ + | Care Jailer Chief Name | Role | Phone | [...] + | 01/28/ | Emergency | [facility] Emergency | | | | 2014 | | Department [address] | | | | | | [address] | | | | | | [facility] | | | | | | [place], [place] | | | | | | [address] | | | | | | [phone] | | | +--------+ + + + [...]
--- OUTSIDE RECORDS SUMMARY | ~2019-10-16 | XMS | Encounter Summary ---
Demographics + + + | Address | [address] | | | [place] [address] | + + + | Home Phone [...] + + + | Author | [facility] | + + + | Organization | [facility] | + + + | Address | Unknown | + + + | Phone | Unavailable | + + + Care Team Providers + +------+ + | Care Hand Spinner Name | Role | Phone | + [...] | 01/28/ | Emergency | [facility] Emergency | | | | 2014 | | Department [address] | | | | | | [address] | | | | | | [facility] | | | | | | [place], [place] | | | | | | [address] | | | | | | [phone] | | | +--------+ + + + [...]
--- OUTSIDE RECORDS SUMMARY | ~2019-10-16 | XMS | Clinical Summary ---
Demographics + + + | Address | [address] | | | [place] [address] | + + + | Home Phone [...] Team Providers + +------+ + | Care Resistor Coater Name | Role | Phone | + [...] [place] | | | | | | [address] | | | | | | | [...] MD | | | | | | ([id number]) on 09/28/2019 | | | | | [...] | [employer] | MODA | [id number] | 05/23/19 | | | Medica | | | HEALTH | | 14-Pre | | | re | | | MDCR | | sent | | | | + +--------+ +--------+ +---------+--------+ | [employer] [facility] | [facility] | [id number] | 05/23/19 | | | Medica | | | HEALTH | | 19-Pre | | | re | | | MDCR | | sent | | | | + +--------+ +--------+ +---------+--------+ | [employer] | MODA | [id number] | 05/30/19 | [phone] | | Medica [...] | | | | | | | [address] | + +--------+ +--------+ + + | Opal Petty | Person | Self | [birth year] | [address] | | [place] | al/Fam | | 1946 | [phone] | [address] | | | [place] | | | 1 (Home) | [place], [place] | | | | | | | [address] | + +--------+ +--------+ + + Advance Directives + + + + + | Type | Date Recorded | Patient | Explanation | | | | [employer] [place] | | + + + + + | Power of | | | | | Digital Forensic Analyst | | | | + + + + + | Advance | 05/10/2014 | | | | Directive | 12:33 PM | | | + + + + +
--- OUTSIDE RECORDS SUMMARY | ~2019-10-16 | XMS | Encounter Summary ---
Demographics + + + | Address | [address] | | | [place] [address] | + + + | Home Phone | | + + + | Preferred Language | Unknown | + + + | Marital Status | Unknown | + + + | Islam Affiliation | Unknown | + + + | Race | Unknown | + + + | Ethnic Group | Unknown | + + + Author + + + | Author | [facility] | + + + | Organization | [facility] | + + + | Address | Unknown | + + + | Phone | Unavailable | + + + Care Team Providers + +------+ + | Care Fuel Injection Servicer Name | Role | Phone | + [...] | | [address] | [facility] [place] | | | | | [place], | [address] | | | | | [place] [address] | [phone] | | | | | [phone] | | | +--------+ + + + [...]
--- OUTSIDE RECORDS SUMMARY | ~2019-10-16 | XMS | Encounter Summary ---
Demographics + + + | Address | [address] | | | [place] [address] | + + + | Home Phone [...] Team Providers + +------+ + | Care Mandrel Puller Name | Role | Phone | + +------+ + | Yovani Santana MD | PCP | | + +------+ + Encounter Details +--------+ + + + + | Date | Type | Department | Care Team | Description | +--------+ + + + + | 03/26/ | Hospital | [facility] | Melendez, Gary, | Hypoxemia; Kyphosis | | 2014 | Encounter | MED CTR PULMONARY | MD [address] | deformity of spine | | | | FUNCTION [address] | [place], [place] | | | | | [place], | [address] | | | | | [place] [address] | | | | | | [phone] | | | +--------+ + + + [...] | | | | [facility] | | | | | | [address] | | | | | | | [...] MD 03/27/2014 13:24 | | | [facility] | | + + + + + [...] 03/26/14Electronically signed by: Gary Melendez MD 03/27/2014 [facility] | | [facility] | | | |No prior pulmonary function tests available for comparison. | | | |Test performed: 03/26/14 | |Electronically signed by: Gary Melendez MD 03/27/2014 13:24 | |[facility] | + + documented in this encounter Visit Diagnoses + + | Diagnosis | + + | Hypoxemia | + + | Kyphosis deformity of spine Kyphosis (acquired) (postural) | + + documented in this encounter"
--- OUTSIDE RECORDS SUMMARY | ~2019-10-16 | XMS | Clinical Summary ---
Demographics + + + | Address | [address] | | | [place] [address] | + + + | Home Phone | | + + + | Preferred Language | Unknown | + + + | Marital Status | Unknown | + + + | Religion Affiliation | Unknown | + + + | Race | Unknown | + + + | Ethnic Group | Unknown | + + + Author + + + | Author | [facility] | + + + | Organization | [facility] | + + + | Address | Unknown | + + + | Phone | Unavailable | + + + Care Team Providers + +------+ + | Care High Lighter Name | Role | Phone | + +------+ + PCP | Unavailable | + +------+ + Source Comments JAYDEN is fully live on both EpicCare Ambulatory and EpicCare InPatient.[facility] Allergies Not on File Medications Not on [...]
--- OUTSIDE RECORDS SUMMARY | ~2019-10-16 | XMS | Encounter Summary ---
Demographics + + + | Address | [address] | | | [place] [address] | + + + | Home Phone [...] Team Providers + +------+ + | Care Cartography/Mapping Technician Name | Role | Phone | + +------+ + | Rick Osorio DO | PCP | | + +------+ + Encounter Details +--------+ + + + + | Date | Type | Department | Care Team | Description | +--------+ + + + + | 11/15/ | Orders Only | [facility] | Emil Oliva MD | | | 2014 | | NEPRHOLOGY [place] | [address] [facility] | | | | | [address] | [address] [place], [place] | | | | | [address] [place], [place] | [address] | | | | | [address] | | | | | | [phone] | | | +--------+ + + + [...] | | | | | [address] [place], [place] | | | | | | [address] | | | | | | | [...] | | LAB | | | [place]OU[place] | | | | | + + [...]
--- OUTSIDE RECORDS SUMMARY | ~2019-10-16 | XMS | Encounter Summary ---
Demographics + + + | Address | [address] | | | [place] [address] | + + + | Home Phone | | + + + | Preferred Language | Unknown | + + + | Marital Status | Single | + + + | Jainism Affiliation | 1041 | + + + | Race | Unknown | + + + | Ethnic Group | Unknown | + + + Author + + + | Author | [facility] | | | and [place] | + + + | Organization | [facility] | | [...] Team Providers + +------+ + | Care Obedience Trainer Name | Role | Phone | + +------+ + | Rick Osorio DO | PCP | | + +------+ + Encounter Details +--------+ + + + + | Date | Type | Department | Care Team | Description | +--------+ + + + + | 06/04/ | Orders Only | [facility] | Emil Oliva MD | | | 2013 | | NEPHROLOGY [place] | [address] | | | | | [address] [facility] [address] [address] | [address] [place], [place] | | | | | [address] [place], [place] | [address] | | | | | [address] | | | | | | [phone] | | | +--------+ + + + [...] [place] | | | | | | [address] | | | | | | | [...] | | | LAB | | | SPANISH | | | | | + +-------+ [...]
--- OUTSIDE RECORDS SUMMARY | ~2019-10-16 | XMS | Encounter Summary ---
Demographics + + + | Address | [address] | | | [place] [address] | + + + | Home Phone | | + + + | Preferred Language | Unknown | + + + | Marital Status | Single | + + + | Samaritan Affiliation | 1041 | + + + | Race | Unknown | + + + | Ethnic Group | Unknown | + + + Author + + + | Author | [facility] | | | and [place] | + + + | Organization | [facility] | | [...] Team Providers + +------+ + | Care [place] Worker Name | Role | Phone | [...] + + | 03/26/ | Office | [facility] | Gary Melednez, | Hypoxemia (Primary | | 2014 | Visit | PULMONARY [address] | MD [address] | Dx); Kyphosis | | | | [address], | [place], [place] | deformity of spine; | | | | [place] [address] | [id number] | Restrictive lung | | | | [phone] | | disease | +--------+---------+ + + [...] [facility] | | | | | | [id number] | | | | | | | [...] + | MISCELLANEOUS LAB | | | [phone] | + +---------+ + + | MISCELANIOUS LAB | | | [phone] | + +---------+ + + documented in this encounter Visit Diagnoses + + | Diagnosis | + + | Hypoxemia - Primary | + + | 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
--- OUTSIDE RECORDS SUMMARY | ~2019-10-16 | XMS | Encounter Summary ---
Demographics + + + | Address | [address] | | | [place] [address] | + + + | Home Phone | | + + + | Preferred Language | Unknown | + + + | Marital Status | Unknown | + + + | Scientology Affiliation | Unknown | + + + | Race | Unknown | + + + | Ethnic Group | Unknown | + + + Author + + + | Author | [facility] | + + + | Organization | [facility] | + + + | Address | Unknown | + + + | Phone | Unavailable | + + + Care Team Providers + +------+ + | Care Electrical Laboratory Technician Name | Role | Phone | [...] | | | | | [place], | [place], [place] | | | | | [place] [address] | [address] | | | | | [phone] | | | +--------+ + + + [...]
--- OUTSIDE RECORDS SUMMARY | ~2019-10-16 | XMS | Clinical Summary ---
Demographics + + + | Address | [address] | | | [place] [address] | + + + | Home Phone | | + + + | Preferred Language | Unknown | + + + | Marital Status | Unknown | + + + | Restorationist Affiliation | Unknown | + + + | Race | Unknown | + + + | Ethnic Group | Unknown | + + + Author + + + | Author | [facility] | + + + | Organization | [facility] | + + + | Address | Unknown | + + + | Phone | Unavailable | + + + Care Team Providers + +------+ + | Care Buildings And Grounds Superintendent Name | Role | Phone | + +------+ + PCP | Unavailable | + +------+ + Source Comments JAYDEN is fully live on both EpicCare Ambulatory and EpicCare InPatient.[facility] Allergies Not on File Medications Not [...]
--- OUTSIDE RECORDS SUMMARY | ~2019-10-16 | XMS | Encounter Summary ---
Demographics + + + | Address | [address] | | | [place] [address] | + + + | Home Phone [...] Team Providers + +------+ + | Care Occupational Health Nursing Director Name | Role | Phone | [...] [place], [place] | | | | | [place], [place] | [address] | | | | | [address] | | | | | | [phone] | | | +--------+ + + + [...] | | | | | | [place] | | | | | | [address] | | | | | | | [...] 0.03 m/s | | | MV Dec Cuming: 9.74 m/s2 MV DecT: 91.63 ms MV E Billy: 0.89 | | | m/s MV E/A Ratio: 26.03 MV PHT: 26.57 ms MVA By PHT: 8.27 | | | cm2 Septal e': 0.06 m/s Septal E/e': 12.90 Lateral e': | | | 0.09 m/s Lateral E/e': 8.96 RAP: 5 mmHg RVSP: 17.59 mmHg | | | TR maxP.59 mmHg TR Vmax: 1.77 m/s [employer] Driver: NAIF | | | Authenticated by: [facility] Report Date/Time: -- | | | 14_[id number]_2:51:12 | | + + + + + | Procedure Note | + + | Hayden Manuel Conversion - 01/11/2019 3:56 PM PDT Patient [...] cmLVPWd: 1.14 cmLVOT | | Area: 3.33 hy2WTWB Diam: 2.06 cm%FS: 26.43 %EF(Teich): 51.67 %ESV(Teich): [...] (A-L): | | 45.82 ml/m2LAAs A2C: 22.15 dr1PWTFZ A-L A2C: 71.25 mlLALs A2C: 5.84 cmLAAs A4C: | | 28.64 ul6EOTIA A-L A4C: 104.24 mlLALs A4C: 6.68 cmRAAs: 14.65 rg3RVUOP A-L: | | 33.90 mlRAESV MOD: 34.21 mlRALs: 5.37 cmAV maxP.81 mmHgAV meanP.70 | | mmHgAV Vmax: 1.30 m/Sorin Vmean: 0.90 m/Sorin VTI: 24.74 cmAVA Vmax: 2.36 cm2AVA | | (VTI): 2.24 un3NEEI maxP.41 mmHgLVOT meanP.88 mmHgLVSI Dopp: 27.63 | | ml/m2LVSV Dopp: 55.54 mlLVOT Vmax: 0.92 m/sLVOT Vmean: 0.64 m/sLVOT VTI: 16.66 | | cmMV A Billy: 0.03 m/sMV Dec Cuming: 9.74 m/s2MV DecT: 91.63 msMV E Billy: 0.89 m/sMV | | E/A Ratio: 26.03MV PHT: 26.57 msMVA By PHT: 8.27 xg1Kriifz e': 0.06 m/sSeptal | | E/e': 12.90Lateral e': 0.09 m/sLateral E/e': 8.96RAP: 5 mmHgRVSP: 17.59 mmHgTR | | maxP.59 mmHgTR Vmax: 1.77 m/s [employer] Driver: DHAuthenticated by: Ariadnahed | | [facility] Date/Time: -- [id number]:51:12 IMPRESSION: 1. The left ventricle is | [...] A Billy: 0.03 m/s | |MV Dec Cuming: 9.74 m/s2 | |MV DecT: 91.63 ms [...] |TR Vmax: 1.77 m/s | | | |[employer] Driver: | |Authenticated by: Conor Garcia | |Report Date/Time: -07_[id number]_1:51:12 | | | |IMPRESSION: | |1. The [...]
--- OUTSIDE RECORDS SUMMARY | ~2019-10-16 | XMS | Encounter Summary ---
Demographics + + + | Address | [address] | | | [place] [address] | + + + | Home Phone | | + + + | Preferred Language | Unknown | + + + | Marital Status | Unknown | + + + | Hindu Affiliation | Unknown | + + + [...] Team Providers + +------+ + | Care Molecular Pathologist Name | Role | Phone | + [...] | | [address] | [facility] [place] | | | | | [place], | [address] | | | | | [place] [address] | [phone] | | | | | [phone] | | | +--------+ + + + [...]
--- OUTSIDE RECORDS SUMMARY | ~2019-10-16 | XMS | Encounter Summary ---
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 In some [facility], a lung transplant is an option. Your healthcare team may include: A primary care provider,such as your family doctor. A life educator,a specialist in lung problems. A pulmonary nurse specialistwho helps you understand and carry out your treatment. A pulmonary rehabilitation specialistwho helps you gain strength through exercise. A social workerwho helps with your daily needs, family life, and stress. [id number] [employer]. [address] [place] [address]. All righ ts reserved. This information is [...] | | | | | [place] | | | | | | [phone] | | | | | | | [...]
--- OUTSIDE RECORDS SUMMARY | ~2019-10-16 | XMS | Encounter Summary ---
Demographics + + + | Address | [address] | | | [place] [address] | + + + | Home Phone | | + + + | Preferred Language | Unknown | + + + | Marital Status | Unknown | + + + | Anglican Affiliation | Unknown | + + + | Race | Unknown | + + + | Ethnic Group | Unknown | + + + Author + + + | Author | [facility] | + + + | Organization | [facility] | + + + | Address | Unknown | + + + | Phone | Unavailable | + + + Care Team Providers + +------+ + | Care Thread Machine Operator Name | Role | Phone [...] | | | | | [place], | [place], [place] | | | | | [place] [address] | [address] | | | | | [phone] | | | +--------+ + + + [...]
--- OUTSIDE RECORDS SUMMARY | ~2019-10-16 | XMS | Encounter Summary ---
Demographics + + + | Address | [address] | | | [place] [address] | + + + | Home Phone [...] Team Providers + +------+ + | Care Ruby Rails Developer Name | Role | Phone | [...] [address] | Dx) | | | | [place], | [place], [place] | | | | | [place] [address] | [address] | | | | | [phone] | | | +--------+ + + + [...] [place] | | | | | | [address] | | | | | | | | +--------+---------+ + + + documented as of this encounter Visit Diagnoses + + | Diagnosis | + + | Hypoxemia - Primary | + + documented in this encounter
--- OUTSIDE RECORDS SUMMARY | ~2019-10-16 | XMS | Encounter Summary ---
Demographics + + + | Address | [address] | | | [place] [address] | + + + | Home Phone [...] Team Providers + +------+ + | Care Education Finance Processor Name | Role | Phone | + +------+ + | Yovani Santana MD | PCP | | + +------+ + Encounter Details +--------+ + + + + | Date | Type | Department | Care Team | Description | +--------+ + + + + | 01/28/ | Hospital | [facility] | Jacob Smith, | | | 2014 - | Encounter | [facility] | MD Caremlo SANTAMARIA | | | | | CARE FLO[address] | [place] [address] | | | 02/03/ | | TIERA SANTAMARIA | [phone] | | | 2014 | | [place], [place] | | | | | | [address] | | | | | | [phone] | | | +--------+ + + + [...] Date of Service: 02/03/15 1029 Status: Signed Apprentice Lineman Third Step: Jose Maria Espinal MD (Physician) Related Notes: Original Note by Jose Maria Espinal MD (Physician) filed at 02/04/15 1345 [facility] Service: Hospitalist Physician Discharge Summary Patient ID: [...] lpm, Presented as a transfer from [facility] in [place] for fever of 101 and altered mental s tatus. She was discharged from [facility] on 01/09/15 for elevated troponin and acute [...] antibiotics. She was brought back in to [facility] for fever and confusion. UA and CXR reportedly negative there. SBP was 90s. She had formed stool there but en route here she did develop watery stool, tested C diff + here.".......per admitting MD/Dr. Smith . The patient was admitted to [facility] with a diagnosis of Clostridium difficile infection while she was being transferred from [facility] with fever and altered mental status. Th e patient has underlying immunosuppression secondary to a remote history of liver transplant on chronic immunosuppressive therapy with azathioprine and cyclosporin. Following her trans fletcher to [facility], she was started on oral vancomycin initially [...] medically stable for discharge to return to [facility] in [place] on Jan. ADDITIONAL ISSUES 1. Recurrent atelectasis. [...] days. I would urge managing physician at assisted facility where the patient resides in [place] [...] Procedure: COLONOSCOPY; Surgeon: Juan Ramey MD; Location: [facility] ENDOSCOPY; Service: Gastroenterology; Laterality: N/A; Discharged Condition: [...] [address] [facility] [address] [place] [address] Schedule an appointment as soon as possible [...] to Get Your Medications You need to tow picker these prescriptions. We sent some of them to a specific pharmacy. Go t o these places to get your medications. [facility] - [place], [place] - [address] - lactobacillus granules [address] [place] [address] You may get the following medications from [...] Management by Pedro Partida RN at 02/03/15 6706 Author: Pedro Partida RN Service: (none) Author Type: Registered Nurse Filed: 02/03/15 6250 Date of Service: 02/03/151608 Status: Signed Apprentice Lineman Third Step: Pedro Partida RN (Registered Nurse) 02/03/15 1608 Discharge Planning Evaluation Admitting Diagnosis Elevated temp, [...] Type longterm facility Retirement Facility Other (comment) ([facility] in [place]) Disposition: Return to [facility] Transportation: Facility van to transport. All [...] Date of Service: 02/02/15 1522 Status: Signed Apprentice Lineman Third Step: Jose Maria Espinal MD (Physician) Related Notes: Original Note by Jose Maria Espinal MD (Physician) filed at 02/02/15 1950 [facility] Service: Hospitalist Progress Note Pt: Cole Ernst AGE/SEX: 69 y.o. female : 1945 ROOM: [address] [place] [address] History of Present Illness: " The patient is a 69 y.o. female with significant past medical history of liver transplant int he 90s on cyclosporine and imuran, chronic pain on methadone, CKD st 3, chronic home O2 of unclear etiology from 2-4 lpm, Presented as a transfer from [facility] in [place] for fever of 101 and altered mental s tatus. She was discharged from [facility] on 01/09/15 for elevated troponin and acute [...] antibiotics. She was brought back in to [facility] for fever and confusion. UA and [...] establishing readiness of the faci lity in [place] to accept the patient in the next [...] contrast. Prior study for comparison: None FINDINGS: Car Stereo Installer 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 deg enerative changes of [...] LA/Ao: 1.57 D-E Excursion: 2.11 cm E-F Nicholas: 0.09 m/s EPSS: 0.48 cm HR: 77.41 [...] TV A Billy: 0.66 m/s TV Dec Nicholas: 4.36 m/s2 TV Dec Time: 184.41 ms TV E Billy: 0.80 m/s TV E/A Rat io: 1.21 Granite Sandblaster Apprentice: NEDRA Authenticated by: Gil Martines MD Report [...] Procedure: COLONOSCOPY; Surgeon: Juan Ramey MD; Location: [facility] ENDOSCOPY; Service: Gastroenterology; Laterality: N/A; PROBLEM LIST [...] by Jose Maria Espinal MD at 02/01/15 8214 Author: Jose Maria Espinal MD Service: Hospitalist Author Type: Physician Filed: 02/02/15 1521 Date of Service: 02/01/151716 Status: Signed Apprentice Lineman Third Step: Jose Maria Espinal MD (Physician) Related Notes: Original Note by Jose Maria Espinal MD (Physician) filed at 02/02/15 4423 [facility] Service: Hospitalist Progress Note Pt: Cole Ernst AGE/SEX: 69 y.o. female : 1945 ROOM: [address] [place] [address] History of Present Illness: " The patient is a 69 y.o. female with significant past medical history of liver transplant int he 90s on cyclosporine and imuran, chronic pain on methadone, CKD st 3, chronic home O2 of unclear etiology from 2-4 lpm, Presented as a transfer from [facility] in [place] for fever of 101 and altered mental s tatus. She was discharged from [facility] on 01/09/15 for elevated troponin and acute [...] antibiotics. She was brought back in to [facility] for fever and confusion. UA and [...] establishing readiness of the faci lity in [place] to accept the patient in the next [...] contrast. Prior study for comparison: None FINDINGS: Car Stereo Installer 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 deg enerative changes of [...] LA/Ao: 1.57 D-E Excursion: 2.11 cm E-F Nicholas: 0.09 m/s EPSS: 0.48 cm HR: 77.41 [...] TV A Billy: 0.66 m/s TV Dec Nicholas: 4.36 m/s2 TV Dec Time: 184.41 ms TV E Billy: 0.80 m/s TV E/A Rat io: 1.21 Granite Sandblaster Apprentice: NEDRA Authenticated by: Gil Martines MD Report [...] Procedure: COLONOSCOPY; Surgeon: Juan Ramey MD; Location: [facility] ENDOSCOPY; Service: Gastroenterology; Laterality: N/A; PROBLEM LIST [...] Currently with normal liver function tests. 3. Yjpjs-px-xeyhtsm liver disease, stage III. Creatinine level has [...] 01/31/152124 Date of Service: 01/31/151513 Status: Signed Apprentice Lineman Third Step: Jose Maria Espinal MD (Physician) Related Notes: Original Note by Jose Maria Espinal MD (Physician) filed at 01/31/15 1523 [facility] Service: Hospitalist Progress Note Pt: Cole Ernst AGE/SEX: 69 y.o. female : 1945 ROOM: [address] [place] [address] History of Present Illness: " The patient is a 69 y.o. female with significant past medical history of liver transplant int he 90s on cyclosporine and imuran, chronic pain on methadone, CKD st 3, chronic home O2 of unclear etiology from 2-4 lp, Presented as a transfer from [facility] in [place] for fever of 101 and altered mental s tatus. She was discharged from [facility] on 01/09/15 for elevated troponin and acute [...] antibiotics. She was brought back in to [facility] for fever and confusion. UA and [...] contrast. Prior study for comparison: None FINDINGS: Car Stereo Installer 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 deg enerative changes of [...] Cardiac Adult Complete 01/15/2015 Patient Name: COLE RENST Date of : 1945 Performing Physician: Gil [...] LA/Ao: 1.57 D-E Excursion: 2.11 cm E-F Nicholas: 0.09 m/s EPSS: 0.48 cm HR: 77.41 [...] TV A Billy: 0.66 m/s TV Dec Nicholas: 4.36 m/s2 TV Dec Time: 184.41 ms TV E Billy: 0.80 m/s TV E/A Rat io: 1.21 Granite Sandblaster Apprentice: NEDRA Authenticated by: Gil Martines MD Report [...] Procedure: COLONOSCOPY; Surgeon: Juan Ramey MD; Location: [facility] ENDOSCOPY; Service: Gastroenterology; Laterality: N/A; PROBLEM LIST [...] 01/31/151312 Date of Service: 01/31/151312 Status: Signed Apprentice Lineman Third Step: Catina Moon () Attempted visit. Pt sitting in chair sleeping. No family present. Chaplain Catina Moon onver alessandro Transaction, Provider Unknown - 01/31/2015 11:35 AM PDT Therapy Progress Note by Mahi Yanes PTA at 01/31/15 0796 Author: Mahi Yanes PTA Service: (none) Author Type: Transplanter Orchid Filed: 01/31/15 2391 Date of Service: 01/31/151134 Status: Signed Apprentice Lineman Third Step: Mahi Yanes PTA (Transplanter Orchid) 01/31/15 1133 PT Last Visit PT Received On 01/31/15 [...] Case Management by Gregg Keene MS, DIRECTOR OF ANALYTICS at 01/31/15 1007 Author: Gregg Keene MS, DIRECTOR OF ANALYTICS Service: (none) Author Type: Electrical Project Manager Filed: 01/31/15 1546 Date of Service: 01/31/15 1007 Status: Addendum Apprentice Lineman Third Step: Gregg Keene MS, DIRECTOR OF ANALYTICS (Electrical Project Manager) Related Notes: Original Note by Gregg Keene MS, DIRECTOR OF ANALYTICS (Electrical Project Manager) filed at 01/31/15 1007 Discharge planning - CM faxed updated clinical to Gi at [facility]. Discharge form s on front of chart for MD signature. CM notified Gi of anticipated d/c this weekend. onver alessandro Transaction, Provider Unknown - 01/30/2015 5:05 PM PDT Therapy Progress Note by Gail Vernon PT at 01/30/151704 Author: Gail Vernon PT Service: (none) Author Type: Physical Therapist Filed: 01/30/15 1754 Date of Service: 01/30/151704 Status: Signed Apprentice Lineman Third Step: Gail Vernon PT (Physical Therapist) 01/30/151704 PT [...] by Jose Maria Espinal MD at 01/30/15 2343 Author: Jose Maria Espinal MD Service: Hospitalist Author Type: Physician Filed: 01/31/15 3177 Date of Service: 01/30/154 Status: Signed Apprentice Lineman Third Step: Jose Maria Espinal MD (Physician) Related Notes: Original Note by Jose Maria Espinal MD (Physician) filed at 01/30/15 1378 [facility] Service: Hospitalist Progress Note Pt: Cole Ernst AGE/SEX: 69 y.o. female : 1945 ROOM: [facility]/6601-1 History of Present Illness: " The patient is a 69 y.o. female with significant past medical history of liver transplant int he 90s on cyclosporine and imuran, chronic pain on methadone, CKD st 3, chronic home O2 of unclear etiology from 2-4 lpm, Presented as a transfer from [facility] in [place] for fever of 101 and altered mental s tatus. She was discharged from [facility] on 01/09/15 for elevated troponin and acute [...] antibiotics. She was brought back in to [facility] for fever and confusion. UA and [...] contrast. Prior study for comparison: None FINDINGS: Car Stereo Installer 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 deg enerative changes of [...] LA/Ao: 1.57 D-E Excursion: 2.11 cm E-F Nicholas: 0.09 m/s EPSS: 0.48 cm HR: 77.41 [...] TV A Billy: 0.66 m/s TV Dec Nicholas: 4.36 m/s2 TV Dec Time: 184.41 ms TV E Billy: 0.80 m/s TV E/A Rat io: 1.21 Granite Sandblaster Apprentice: NEDRA Authenticated by: Gil Martines MD Report [...] Procedure: COLONOSCOPY; Surgeon: Juan Ramey MD; Location: [facility] ENDOSCOPY; Service: Gastroenterology; Laterality: N/A; PROBLEM LIST [...] Patient's live r functions remain normal. 3. Ipdsj-sr-pcbquos kidney disease stage III. Creatinine level has [...] by Jose Maria Espinal MD at 01/29/15 1446 Author: Jose Maria Espinal MD Service: Hospitalist Author Type: Physician Filed: 01/30/15 0957 Date of Service: 01/29/15 1651 Status: Signed Apprentice Lineman Third Step: Jose Maria Espinal MD (Physician) Related Notes: Original Note by Jose Maria Espinal MD (Physician) filed at 01/29/152024 [facility] Service: Hospitalist Progress Note Pt: Cole Ernst AGE/SEX: 69 y.o. female : 1945 ROOM: [address] [place] [address] History of Present Illness: " The patient is a 69 y.o. female with significant past medical history of liver transplant int he 90s on cyclosporine and imuran, chronic pain on methadone, CKD st 3, chronic home O2 of unclear etiology from 2-4 lp, Presented as a transfer from [facility] in [place] for fever of 101 and altered mental s tatus. She was discharged from [facility] on 01/09/15 for elevated troponin and acute [...] antibiotics. She was brought back in to [facility] for fever and confusion. UA and [...] contrast. Prior study for comparison: None FINDINGS: Car Stereo Installer 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 deg enerative changes of [...] LA/Ao: 1.57 D-E Excursion: 2.11 cm E-F Nicholas: 0.09 m/s EPSS: 0.48 cm HR: 77.41 [...] TV A Billy: 0.66 m/s TV Dec Nicholas: 4.36 m/s2 TV Dec Time: 184.41 ms TV E Billy: 0.80 m/s TV E/A Rat io: 1.21 Granite Sandblaster Apprentice: NEDRA Authenticated by: Gil Martines MD Report [...] Procedure: COLONOSCOPY; Surgeon: Juan Ramey MD; Location: [facility] ENDOSCOPY; Service: Gastroenterology; Laterality: N/A; PROBLEM LIST [...] Management by Pedro Partida RN at 01/29/15 0581 Author: Pedro Partida RN Service: (none) Author Type: Registered Nurse Filed: 01/29/15 1541 Date of Service: 01/29/15 1525 Status: Signed Apprentice Lineman Third Step: Pedro Partida RN (Registered Nurse) 01/29/15 152 [...] Type longterm facility Retirement Facility Other (comment) ([facility] in [place]) Met with: patient and discussed discharge planning, Pt is a 69 y.o., female who was discharged from [facility] 2 wee ks ago to [facility]. Her sister, Renée Tipton is emergency contact, . Patient's PCP is: K[facility] DE JESUS Patient's insurance: Medicare Coverage concerns: Medication coverage/concerns: Community resources utilized / needed: Assistance in transportation: Identification of any specific education / training: Barriers to Discharge / Alternative housing needed: Anticipated DCP: Return to [facility] PEDRO PARTIDA RN onver alessandro Transaction, Provider Unknown - 01/29/2015 8:55 AM PDT Therapy Progress Note by Barbara Edmond PT at 01/29/15 0871 Author: Barbara Edmond PT Service: (none) Author Type: Physical Therapist Filed: 01/29/15 0933 Date of Service: 01/29/15 0855 Status: Signed Apprentice Lineman Third Step: Barbara Edmond PT (Physical Therapist) 01/29/15854 PT [...] to SNF after current hospital stay. Just DIRECTOR OF INDUSTRIAL RELATIONS Júnior ADL's and Júnior mobility using 4ww for short room distances, had been using manual w/c in hallway at SNF. Reports a few falls at facility ov er last week, otherwise denies falls over last 6mos. Was getting therapies at facility. Prior Function Level of [place] Modified independent with ADLs;Modified independent with functional [...] Barriers to Discharge Physical Deficits Impacting Functional [place];Self-care Deficit s Impacting Functional [place];Equipment Needs (see comment);Pain Recommendation Comments Needs return [...] Barriers to Discharge Physical Deficits Impacting Functional [place];Self-care Deficit s Impacting Functional [place];Equipment Needs (see comment);Pain Recommendation Comments Needs return [...] 01/29/15831 Date of Service: 01/29/15830 Status: Signed Apprentice Lineman Third Step: Malick Ramos RN (Registered Nurse) Infection Prevention Note: Patient stool is positive for C. Diff. Contact Enteric Precautions are required until furt her notice. Thank you. Malick Ramos RN, BA, Promotions Executive Producer onver alessandro Transaction, Provider Unknown - 01/28/2015 3:23 PM PDT Progress Notes by Jimena Duarte RPH at 01/28/15 1523 Author: Jimena Duarte RPH Service: (none) Author Type: Pharmacist Filed: 01/28/151522 Date of Service: 01/28/151522 Status: Signed Apprentice Lineman Third Step: Jimena Duarte RPH (Pharmacist) Zosyn Extended Infusion Initial Consult-Per Dr. Jacob Ernst 69 y.o. female CrCl cannot be calculated (Unknown ideal weight.). NEUTROPHILS ABS Date Value Ref Range Status 01/18/2015 3.26 1.90 - 7.40 K/uL Final Comment: Testing performed at [facility], [address] [place] [address] CREATININE Date Value Ref Range Status 01/19/2015 0.96 0.50 - 1.00 mg/dL Final Comment: Testing performed at [facility], [address] [place] [address] Zosyn extended Infusion loading and maintenance dose guidelines Loading Dose 4.5 g IV Over 30 minutes CrCl >20 ml/min 3.375 g IV Q 8 hours Over 4 hours CrCl 10-20 ml/min 3.375 g IV Q 12 hours Over 4 hours CrCl <10, HD, PD Follow [facility] Dosage Adjustments in Renal Dysfunction Protocol Plan [...] 01/28/151515 Date of Service: 01/28/151515 Status: Signed Apprentice Lineman Third Step: Jimena Duarte RPH (Pharmacist) Renal Dosing Monitoring: [...] | | | | | [place] | | | | | | [id number] | | | | | | | [...] EXTERNAL | | | | performed at [facility], [address] | K/uL | LAB | | | | [address] [place], | | | | | | [place] [address] | | | | + + + + + + | Red Blood | 2.72 (L)Comment: Testing | 3.70 - 5.10 | EXTERNAL | | | Cells | performed at [facility], [address] | M/uL | LAB | | | Counted | [address], | | | | | | [place] [address] | | | | + + + + + + | Hemoglobin | 9.6 (L)Comment: Testing | 11.3 - 15.5 | EXTERNAL | | | | performed at [facility], [address] | g/dL | LAB | | | | [address], | | | | | | [place] [address] | | | | + + + + + + | Hematocrit, | 28.8 (L)Comment: Testing | 34.0 - 46.0 % | EXTERNAL | | | POC | performed at [facility], [address] | | LAB | | | | [address], | | | | | | [place] [address] | | | | + + + + + + | MCV | 106.0 (H)Comment: | 80.0 - 100.0 fl | EXTERNAL | | | | Testing performed at | | LAB | | | | [facility], [address] | | | | | | [place] | | | | | | [address] | | | | + + + + + + | MCH | 35.2 (H)Comment: Testing | 27.0 - 34.0 pg | EXTERNAL | | | | performed at [facility], [address] | | LAB | | | | [address], | | | | | | [place] [address] | | | | + + + + + + | MCHC | 33.2Comment: Testing | 32.0 - 35.5 | EXTERNAL | | | | performed at [facility], [address] | g/dL | LAB | | | | [address], | | | | | | [place] [address] | | | | + + + + + + | RDW-CV | 53.4 (H)Comment: Testing | 37 - 53 fl | EXTERNAL | | | | performed at [facility], [address] | | LAB | | | | [address], | | | | | | [place] [address] | | | | + + + + + + | Platelet | 216Comment: Testing | 150 - 400 K/uL | EXTERNAL | | | Count | performed at [facility], [address] | | LAB | | | Plasma | [address], | | | | | | [place] [address] | | | | + + + + + + | MPV | 10.5Comment: Testing | fl | EXTERNAL | | | | performed at [facility], [address] | | LAB | | | | [address], | | | | | | [place] [address] | | | | + + + + + + | Differentia | MANUALComment: Testing | | EXTERNAL | | | l Type | performed at [facility], [address] | | LAB | | | | [address], | | | | | | [place], [place] [address] | | | | + + + + + + | Segmented | 35Comment: Testing | % | EXTERNAL | | | Neutrophils | performed at [facility], [address] | | LAB | | | Manual | [address], | | | | | | [place], [place] [address] | | | | + + + + + + | % Bands | 1Comment: Testing | % | EXTERNAL | | | | performed at [facility], [address] | | LAB | | | | [address], | | | | | | [place], [place] [address] | | | | + + + + + + | Lymphocytes | 44Comment: Testing | % | EXTERNAL | | | Manual | performed at [facility], [address] | | LAB | | | | [address], | | | | | | [place] [address] | | | | + + + + + + | Monocytes | 12Comment: Testing | % | EXTERNAL | | | Manual | performed at [facility], [address] | | LAB | | | | [address], | | | | | | [place] [address] | | | | + + + + + + | Eosinophils | 8Comment: Testing | % | EXTERNAL | | | Manual | performed at [facility], [address] | | LAB | | | | [address], | | | | | | [place] [address] | | | | + + + + + + | Absolute | 3.08Comment: Testing | 1.90 - 7.40 | EXTERNAL | | | Neutrophils | performed at [facility], [address] | K/uL | LAB | | | | [address], | | | | | | [place] [address] | | | | + + + + + + | Bands | 0.09Comment: Testing | 0.00 - 0.20 | EXTERNAL | | | Manual | performed at [facility], [address] | K/uL | LAB | | | | [address], | | | | | | [place] [address] | | | | + + + + + + | Absolute | 3.88Comment: Testing | 1.00 - 3.90 | EXTERNAL | | | Lymphocytes | performed at [facility], [address] | K/uL | LAB | | | | [address], | | | | | | [place] [address] | | | | + + + + + + | Absolute | 1.06 (H)Comment: Testing | 0.00 - 0.80 | EXTERNAL | | | Monocytes | performed at [facility], [address] | K/uL | LAB | | | | [address], | | | | | | [place] [address] | | | | + + + + + + | Absolute | 0.70 (H)Comment: Testing | 0.00 - 0.50 | EXTERNAL | | | Eosinophils | performed at [facility], [address] | K/uL | LAB | | | | [address] [facility], | | | | | | [place] [address] | | | | + + + + + + | RBC | NORMAL PLT MORPHComment: | | EXTERNAL | | | Morphology | NORMAL RBC MORPHTesting | | LAB | | | | performed at [facility], [address] | | | | | | [facility], | | | | | | [place] [address] | | | | + + + [...] EXTERNAL | | | | performed at [facility], [address] | | LAB | | | | [address], | | | | | | [place] [address] | | | | + + + [...] EXTERNAL | | | | performed at [facility], [address] | | LAB | | | | [address], | | | | | | [place] [address] | | | | + + + [...] | | | | | [place] [address] | | | | + + + [...] | | | | | [place] [address] | | | | + + + [...] | | | | | [place] [address] | | | | + + + + + + | Glucose, | 105 (H)Comment: Testing | 65 - 99 mg/dL | EXTERNAL | | | Fasting | performed at [facility], [address] | | LAB | | | | [address], | | | | | | [place] [address] | | | | + + + + + + | BUN | 9Comment: Testing | 8 - 25 mg/dL | EXTERNAL | | | | performed at [facility], [address] | | LAB | | | | [address], | | | | | | [place] [address] | | | | + + + + + + | Creatinine | 0.82Comment: Testing | 0.50 - 1.00 | EXTERNAL | | | | performed at [facility], [address] | mg/dL | LAB | | | | [address], | | | | | | [place] [address] | | | | + + + + + + | BUN/Creatin | 11Comment: Testing | | EXTERNAL | | | ine Ratio | performed at [facility], [address] | | LAB | | | | [address], | | | | | | [place] [address] | | | | + + + + + + | Calcium | 8.5Comment: Testing | 8.5 - 10.5 | EXTERNAL | | | | performed at [facility], [address] | mg/dL | LAB | | | | [address], | | | | | | [place] [address] | | | | + + + + + + | Protein, | 6.3Comment: Testing | 6.3 - 8.2 g/dL | EXTERNAL | | | Total | performed at [facility], [address] | | LAB | | | | [address], | | | | | | [place] [address] | | | | + + + + + + | Albumin | 2.8 (L)Comment: Testing | 3.3 - 4.8 g/dL | EXTERNAL | | | | performed at [facility], [address] | | LAB | | | | [address], | | | | | | [place] [address] | | | | + + + + + + | Globulin | 3.5Comment: Testing | 1.3 - 4.9 g/dL | EXTERNAL | | | | performed at [facility], [address] | | LAB | | | | [address], | | | | | | [place] [address] | | | | + + + + + + | A/G Ratio | 0.8 (L)Comment: Testing | 1.0 - 2.4 | EXTERNAL | | | | performed at [facility], [address] | | LAB | | | | [address], | | | | | | [place] [address] | | | | + + + [...] | | | | | [place] [address] | | | | + + + + + + | AST | 53 (H)Comment: Testing | 10 - 45 U/L | EXTERNAL | | | | performed at [facility], [address] | | LAB | | | | [address], | | | | | | [place] [address] | | | | + + + + + + | ALT | 21Comment: Testing | 10 - 65 U/L | EXTERNAL | | | | performed at [facility], [address] | | LAB | | | | [address], | | | | | | [place] [address] | | | | + + + [...] | | | | | [place] [address] | | | | + + + [...] EXTERNAL | | | | performed at [facility];888 | mmol/L | LAB | | | | [address];[place], [place] | | | | | | [address] | | | | + + + [...] EXTERNAL | | | | performed at [facility] | | LAB | | | | [facility];[place], [place] | | | | | | [address] | | | | + + + [...] EXTERNAL | | | | performed at [facility], [address] | K/uL | LAB | | | | [address], | | | | | | [place] [address] | | | | + + + + + + | Red Blood | 2.78 (L)Comment: Testing | 3.70 - 5.10 | EXTERNAL | | | Cells | performed at [facility], [address] | [address]/uL | LAB | | | Counted | [address], | | | | | | [place] [address] | | | | + + + + + + | Hemoglobin | 9.7 (L)Comment: Testing | 11.3 - 15.5 | EXTERNAL | | | | performed at [facility], [address] | g/dL | LAB | | | | [address], | | | | | | [place] [address] | | | | + + + + + + | Hematocrit, | 29.6 (L)Comment: Testing | 34.0 - 46.0 % | EXTERNAL | | | POC | performed at [facility], [address] | | LAB | | | | [address], | | | | | | [place] [address] | | | | + + + + + + | MCV | 106.3 (H)Comment: | 80.0 - 100.0 fl | EXTERNAL | | | | Testing performed at | | LAB | | | | [facility], [address] | | | | | | [place] | | | | | | [address] | | | | + + + + + + | MCH | 34.8 (H)Comment: Testing | 27.0 - 34.0 pg | EXTERNAL | | | | performed at [facility], [address] | | LAB | | | | [address], | | | | | | [place] [address] | | | | + + + + + + | MCHC | 32.8Comment: Testing | 32.0 - 35.5 | EXTERNAL | | | | performed at [facility], [address] | g/dL | LAB | | | | [address], | | | | | | [place] [address] | | | | + + + + + + | RDW-CV | 53.8 (H)Comment: Testing | 37 - 53 fl | EXTERNAL | | | | performed at [facility], [address] | | LAB | | | | [address], | | | | | | [place] [address] | | | | + + + + + + | Platelet | 181Comment: Testing | 150 - 400 K/uL | EXTERNAL | | | Count | performed at [facility], [address] | | LAB | | | Plasma | [address], | | | | | | [place] [address] | | | | + + + + + + | MPV | 11.3Comment: Testing | fl | EXTERNAL | | | | performed at [facility], [address] | | LAB | | | | [address], | | | | | | [place] [address] | | | | + + + + + + | Differentia | MANUALComment: Testing | | EXTERNAL | | | l Type | performed at [facility], [address] | | LAB | | | | [address], | | | | | | [place] [address] | | | | + + + + + + | Segmented | 45Comment: Testing | % | EXTERNAL | | | Neutrophils | performed at [facility], [address] | | LAB | | | Manual | [address], | | | | | | [place] [address] | | | | + + + + + + | % Bands | 1Comment: Testing | % | EXTERNAL | | | | performed at [facility], [address] | | LAB | | | | [address], | | | | | | [place] [address] | | | | + + + + + + | Lymphocytes | 35Comment: Testing | % | EXTERNAL | | | Manual | performed at [facility], [address] | | LAB | | | | [address], | | | | | | [place] [address] | | | | + + + + + + | Monocytes | 11Comment: Testing | % | EXTERNAL | | | Manual | performed at [facility], [address] | | LAB | | | | [address], | | | | | | [place] [address] | | | | + + + + + + | Eosinophils | 8Comment: Testing | % | EXTERNAL | | | Manual | performed at [facility], [address] | | LAB | | | | [address], | | | | | | [place] [address] | | | | + + + + + + | Absolute | 3.85Comment: Testing | 1.90 - 7.40 | EXTERNAL | | | Neutrophils | performed at [facility], [address] | K/uL | LAB | | | | [address], | | | | | | [place] [address] | | | | + + + + + + | Bands | 0.09Comment: Testing | 0.00 - 0.20 | EXTERNAL | | | Manual | performed at [facility], [address] | K/uL | LAB | | | | [address], | | | | | | [place] [address] | | | | + + + + + + | Absolute | 3.01Comment: Testing | 1.00 - 3.90 | EXTERNAL | | | Lymphocytes | performed at [facility], [address] | K/uL | LAB | | | | [address], | | | | | | [place] [address] | | | | + + + + + + | Absolute | 0.95 (H)Comment: Testing | 0.00 - 0.80 | EXTERNAL | | | Monocytes | performed at [facility], [address] | K/uL | LAB | | | | [address], | | | | | | [place] [address] | | | | + + + + + + | Absolute | 0.69 (H)Comment: Testing | 0.00 - 0.50 | EXTERNAL | | | Eosinophils | performed at [facility], [address] | K/uL | LAB | | | | [address], | | | | | | [place] [address] | | | | + + + + + + | RBC | 2+Comment: MACRONORMAL | | EXTERNAL | | | Morphology | PLT MORPHTesting | | LAB | | | | performed at [facility], [address] | | | | | | [address], | | | | | | [place] [address] | | | | | | | [...] EXTERNAL | | | | performed at [facility], [address] | | LAB | | | | [facility], | | | | | | [place] [address] | | | | + + + [...] | | | | | [place] [address] | | | | + + + [...] | | | | | [place] [address] | | | | + + + + + + | K | 3.2 (L)Comment: Testing | 3.5 - 4.9 | EXTERNAL | | | | performed at [facility], [address] | mmol/L | LAB | | | | [address], | | | | | | [place] [address] | | | | + + + + + + | Cl | 103Comment: Testing | 99 - 109 mmol/L | EXTERNAL | | | | performed at [facility], [address] | | LAB | | | | [address], | | | | | | [place] [address] | | | | + + + + + + | CO2 | 31Comment: Testing | 23 - 32 mmol/L | EXTERNAL | | | | performed at [facility], [address] | | LAB | | | | [address], | | | | | | [place] [address] | | | | + + + + + + | Anion Gap | 7Comment: Testing | 5 - 20 mmol/L | EXTERNAL | | | | performed at [facility], [address] | | LAB | | | | [address], | | | | | | [place] [address] | | | | + + + + + + | Glucose, | 104 (H)Comment: Testing | 65 - 99 mg/dL | EXTERNAL | | | Fasting | performed at [facility], [address] | | LAB | | | | [address], | | | | | | [place] [address] | | | | + + + + + + | BUN | 10Comment: Testing | 8 - 25 mg/dL | EXTERNAL | | | | performed at [facility], [address] | | LAB | | | | [address], | | | | | | [place] [address] | | | | + + + + + + | Creatinine | 0.83Comment: Testing | 0.50 - 1.00 | EXTERNAL | | | | performed at [facility], [address] | mg/dL | LAB | | | | [address], | | | | | | [place] [address] | | | | + + + + + + | BUN/Creatin | 12Comment: Testing | | EXTERNAL | | | ine Ratio | performed at [facility], [address] | | LAB | | | | [address], | | | | | | [place] [address] | | | | + + + + + + | Calcium | 8.2 (L)Comment: Testing | 8.5 - 10.5 | EXTERNAL | | | | performed at [facility], [address] | mg/dL | LAB | | | | [address], | | | | | | [place] [address] | | | | + + + + + + | Protein, | 6.2 (L)Comment: Testing | 6.3 - 8.2 g/dL | EXTERNAL | | | Total | performed at [facility], [address] | | LAB | | | | [address], | | | | | | [place] [address] | | | | + + + + + + | Albumin | 2.7 (L)Comment: Testing | 3.3 - 4.8 g/dL | EXTERNAL | | | | performed at [facility], [address] | | LAB | | | [address], | | | | | | [place] [address] | | | | + + + + + + | Globulin | 3.5Comment: Testing | 1.3 - 4.9 g/dL | EXTERNAL | | | | performed at [facility], [address] | | LAB | | | | [address], | | | | | | [place] [address] | | | | + + + + + + | A/G Ratio | 0.8 (L)Comment: Testing | 1.0 - 2.4 | EXTERNAL | | | | performed at [facility], [address] | | LAB | | | | [address], | | | | | | [place] [address] | | | | + + + [...] | | | | | [place] [address] | | | | + + + + + + | AST | 35Comment: Testing | 10 - 45 U/L | EXTERNAL | | | | performed at [facility], [address] | | LAB | | | | [address], | | | | | | [place] [address] | | | | + + + + + + | ALT | 15Comment: Testing | 10 - 65 U/L | EXTERNAL | | | | performed at [facility], [address] | | LAB | | | | [address], | | | | | | [place] [address] | | | | + + + [...] | | | | | | at [facility], [address] | | | | | | [address], | | | | | | [place] [address] | | | | + + + [...] | | | | | [place] [address] | | | | + + + [...] | | | B-12 | performed at [facility], [address] | pg/mL | LAB | | | | [address], | | | | | | [place] [address] | | | | + + + [...] EXTERNAL | | | | performed at [facility], [address] | K/uL | LAB | | | | [address], | | | | | | [place] [address] | | | | + + + + + + | Red Blood | 2.72 (L)Comment: Testing | 3.70 - 5.10 | EXTERNAL | | | Cells | performed at [facility], [address] | M/uL | LAB | | | Counted | [address], | | | | | | [place] [address] | | | | + + + + + + | Hemoglobin | 9.4 (L)Comment: Testing | 11.3 - 15.5 | EXTERNAL | | | | performed at [facility], [address] | g/dL | LAB | | | | [address], | | | | | | [place] [address] | | | | + + + + + + | Hematocrit, | 29.1 (L)Comment: Testing | 34.0 - 46.0 % | EXTERNAL | | | POC | performed at [facility], [address] | | LAB | | | | [address], | | | | | | [place] [address] | | | | + + + + + + | MCV | 107.3 (H)Comment: | 80.0 - 100.0 fl | EXTERNAL | | | | Testing performed at | | LAB | | | | [facility], [address] [facility] | | | | | | [place] | | | | | | [address] | | | | + + + + + + | MCH | 34.6 (H)Comment: Testing | 27.0 - 34.0 pg | EXTERNAL | | | | performed at [facility], [address] | | LAB | | | | [address], | | | | | | [place] [address] | | | | + + + + + + | MCHC | 32.2Comment: Testing | 32.0 - 35.5 | EXTERNAL | | | | performed at [facility], [address] | g/dL | LAB | | | | [address], | | | | | | [place] [address] | | | | + + + + + + | RDW-CV | 57.3 (H)Comment: Testing | 37 - 53 fl | EXTERNAL | | | | performed at [facility], [address] | | LAB | | | | [address], | | | | | | [place] [address] | | | | + + + + + + | Platelet | 174Comment: Testing | 150 - 400 K/uL | EXTERNAL | | | Count | performed at [facility], [address] | | LAB | | | Plasma | [address], | | | | | | [place] [address] | | | | + + + + + + | MPV | 10.9Comment: Testing | fl | EXTERNAL | | | | performed at [facility], [address] | | LAB | | | | [address], | | | | | | [place] [address] | | | | + + + + + + | Differentia | MANUALComment: Testing | | EXTERNAL | | | l Type | performed at [facility], [address] | | LAB | | | | [address], | | | | | | [place] [address] | | | | + + + + + + | Segmented | 45Comment: Testing | % | EXTERNAL | | | Neutrophils | performed at [facility], [address] | | LAB | | | Manual | [address], | | | | | | [place] [address] | | | | + + + + + + | % Bands | 1Comment: Testing | % | EXTERNAL | | | | performed at [facility], [address] | | LAB | | | | [address], | | | | | | [place] [address] | | | | + + + [...] | | | Manual | performed at [facility], [address] | | LAB | | | | [address], | | | | | | [place] [address] | | | | + + + + + + | Absolute | 3.77Comment: Testing | 1.90 - 7.40 | EXTERNAL | | | Neutrophils | performed at [facility], [address] | K/uL | LAB | | | | [address], | | | | | | [place] [address] | | | | + + + + + + | Bands | 0.08Comment: Testing | 0.00 - 0.20 | EXTERNAL | | | Manual | performed at [facility], [address] | K/uL | LAB | | | | [address], | | | | | | [place] [address] | | | | + + + + + + | Absolute | 2.84Comment: Testing | 1.00 - 3.90 | EXTERNAL | | | Lymphocytes | performed at [facility], [address] | K/uL | LAB | | | | [address], | | | | | | [place] [address] | | | | + + + + + + | Absolute | 0.92 (H)Comment: Testing | 0.00 - 0.80 | EXTERNAL | | | Monocytes | performed at [facility], [address] | K/uL | LAB | | | | [address], | | | | | | [place] [address] | | | | + + + + + + | Absolute | 0.75 (H)Comment: Testing | 0.00 - 0.50 | EXTERNAL | | | Eosinophils | performed at [facility], [address] | K/uL | LAB | | | | [address], | | | | | | [place] [address] | | | | + + + + + + | RBC | NORMAL PLT MORPHComment: | | EXTERNAL | | | Morphology | NORMAL RBC MORPHTesting | | LAB | | | | performed at [facility], [address] | | | | | | [address], | | | | | | [place] [address] | | | | + + [...] EXTERNAL | | | | performed at [facility], [address] | | LAB | | | | [address], | | | | | | [place] [address] | | | | + + + [...] | | | | | [place] [address] | | | | + + + [...] | | | | | [place] [address] | | | | + + + + + + | K | 3.8Comment: Testing | 3.5 - 4.9 | EXTERNAL | | | | performed at [facility], [address] | mmol/L | LAB | | | | [address], | | | | | | [place] [address] | | | | + + + + + + | Cl | 111 (H)Comment: Testing | 99 - 109 mmol/L | EXTERNAL | | | | performed at [facility], [address] | | LAB | | | | [address], | | | | | | [place] [address] | | | | + + + + + + | CO2 | 25Comment: Testing | 23 - 32 mmol/L | EXTERNAL | | | | performed at [facility], [address] | | LAB | | | | [address], | | | | | | [place] [address] | | | | + + + + + + | Anion Gap | 5Comment: Testing | 5 - 20 mmol/L | EXTERNAL | | | | performed at [facility], [address] | | LAB | | | | [address], | | | | | | [place] [address] | | | | + + + + + + | Glucose, | 112 (H)Comment: Testing | 65 - 99 mg/dL | EXTERNAL | | | Fasting | performed at [facility], [address] | | LAB | | | | [address], | | | | | | [place] [address] | | | | + + + + + + | BUN | 13Comment: Testing | 8 - 25 mg/dL | EXTERNAL | | | | performed at [facility], [address] | | LAB | | | | [address], | | | | | | [place] [address] | | | | + + + + + + | Creatinine | 0.74Comment: Testing | 0.50 - 1.00 | EXTERNAL | | | | performed at [facility], [address] | mg/dL | LAB | | | | [address], | | | | | | [place] [address] | | | | + + + + + + | BUN/Creatin | 18Comment: Testing | | EXTERNAL | | | ine Ratio | performed at [facility], [address] | | LAB | | | | [address], | | | | | | [place] [address] | | | | + + + + + + | Calcium | 8.0 (L)Comment: Testing | 8.5 - 10.5 | EXTERNAL | | | | performed at [facility], [address] | mg/dL | LAB | | | | [address], | | | | | | [place] [address] | | | | + + + + + + | Protein, | 5.9 (L)Comment: Testing | 6.3 - 8.2 g/dL | EXTERNAL | | | Total | performed at [facility], [address] | | LAB | | | | [address], | | | | | | [place] [address] | | | | + + + + + + | Albumin | 2.6 (L)Comment: Testing | 3.3 - 4.8 g/dL | EXTERNAL | | | | performed at [facility], [address] | | LAB | | | | [address], | | | | | | [place] [address] | | | | + + + + + + | Globulin | 3.3Comment: Testing | 1.3 - 4.9 g/dL | EXTERNAL | | | | performed at [facility], [address] | | LAB | | | | [address], | | | | | | [place] [address] | | | | + + + + + + | A/G Ratio | 0.8 (L)Comment: Testing | 1.0 - 2.4 | EXTERNAL | | | | performed at [facility], [address] | | LAB | | | [address], | | | | | | [place] [address] | | | | + + + + + + | Bilirubin | 0.4Comment: Testing | 0.1 - 1.5 mg/dL | EXTERNAL | | | Total | performed at [facility], [address] | | LAB | | | | [address], | | | | | | [place] [address] | | | | + + + + + + | ALP, | 93Comment: Testing | 35 - 115 U/L | EXTERNAL | | | External | performed at [facility], [address] | | LAB | | | | [address], | | | | | | [place] [address] | | | | + + + + + + | AST | 23Comment: Testing | 10 - 45 U/L | EXTERNAL | | | | performed at [facility], [address] | | LAB | | | | [address], | | | | | | [place] [address] | | | | + + + + + + | ALT | 14Comment: Testing | 10 - 65 U/L | EXTERNAL | | | | performed at [facility], [address] | | LAB | | | | [facility], | | | | | | [place] [address] | | | | + + [...] | | [facility], | | | | | | [place] [address] | | | | + + + [...] | | | | | [place] [address] | | | | + + + + + + | Red Blood | 2.78 (L)Comment: Testing | 3.70 - 5.10 | EXTERNAL | | | Cells | performed at [facility], [address] | M/uL | LAB | | | Counted | [address], | | | | | | [place] [address] | | | | + + + + + + | Hemoglobin | 9.7 (L)Comment: Testing | 11.3 - 15.5 | EXTERNAL | | | | performed at [facility], [address] | g/dL | LAB | | | | [address], | | | | | | [place] [address] | | | | + + + + + + | Hematocrit, | 29.9 (L)Comment: Testing | 34.0 - 46.0 % | EXTERNAL | | | POC | performed at [facility], [address] | | LAB | | | | [address], | | | | | | [place] [address] | | | | + + + + + + | MCV | 107.5 (H)Comment: | 80.0 - 100.0 fl | EXTERNAL | | | | Testing performed at | | LAB | | | | [facility], [address] | | | | | | [place] | | | | | | [address] | | | | + + + + + + | MCH | 34.9 (H)Comment: Testing | 27.0 - 34.0 pg | EXTERNAL | | | | performed at [facility], [address] | | LAB | | | | [address], | | | | | | [place] [address] | | | | + + + + + + | MCHC | 32.5Comment: Testing | 32.0 - 35.5 | EXTERNAL | | | | performed at [facility], [address] | g/dL | LAB | | | | [address], | | | | | | [place] [address] | | | | + + + + + + | RDW-CV | 57.3 (H)Comment: Testing | 37 - 53 fl | EXTERNAL | | | | performed at [facility], [address] | | LAB | | | | [address], | | | | | | [place] [address] | | | | + + + + + + | Platelet | 162Comment: Testing | 150 - 400 K/uL | EXTERNAL | | | Count | performed at [facility], [address] | | LAB | | | Plasma | [address], | | | | | | [place] [address] | | | | + + + + + + | MPV | 11.6Comment: Testing | fl | EXTERNAL | | | | performed at [facility], [address] | | LAB | | | | [address], | | | | | | [place] [address] | | | | + + + [...] | | | | | [place] [address] | | | | + + + + + + | Lymphocytes | 52Comment: Testing | % | EXTERNAL | | | Manual | performed at [facility], [address] | | LAB | | | | [address], | | | | | | [place] [address] | | | | + + + + + + | Monocytes | 11Comment: Testing | % | EXTERNAL | | | Manual | performed at [facility], [address] | | LAB | | | | [address], | | | | | | [place] [address] | | | | + + + + + + | Eosinophils | 6Comment: Testing | % | EXTERNAL | | | Manual | performed at [facility], [address] | | LAB | | | | [address], | | | | | | [place] [address] | | | | + + + + + + | Absolute | 3.19Comment: Testing | 1.90 - 7.40 | EXTERNAL | | | Neutrophils | performed at [facility], [address] | K/uL | LAB | | | | [address], | | | | | | [place] [address] | | | | + + + + + + | Absolute | 5.36 (H)Comment: Testing | 1.00 - 3.90 | EXTERNAL | | | Lymphocytes | performed at [facility], [address] | K/uL | LAB | | | | [address], | | | | | | [place] [address] | | | | + + + + + + | Absolute | 1.13 (H)Comment: Testing | 0.00 - 0.80 | EXTERNAL | | | Monocytes | performed at [facility], [address] | K/uL | LAB | | | | [address], | | | | | | [place] [address] | | | | + + + + + + | Absolute | 0.62 (H)Comment: Testing | 0.00 - 0.50 | EXTERNAL | | | Eosinophils | performed at [facility], [address] | K/uL | LAB | | | | [address], | | | | | | [place] [address] | | | | + + + + + + | RBC | 2+Comment: MACRONORMAL | | EXTERNAL | | | Morphology | PLT MORPHTesting | | LAB | | | | performed at [facility], [address] | | | | | | [address], | | | | | | [place] [address] | | | | | | | [...] EXTERNAL | | | | performed at [facility], [address] | | LAB | | | | [address], | | | | | | [place] [address] | | | | + + + [...] EXTERNAL | | | | performed at [facility], [address] | | LAB | | | | [address], | | | | | | [place] [address] | | | | + + + [...] | | | | | [place] [address] | | | | + + + + + + | K | 4.2Comment: Testing | 3.5 - 4.9 | EXTERNAL | | | | performed at [facility], [address] | mmol/L | LAB | | | | [address], | | | | | | [place] [address] | | | | + + + + + + | Cl | 112 (H)Comment: Testing | 99 - 109 mmol/L | EXTERNAL | | | | performed at [facility], [address] | | LAB | | | | [address], | | | | | | [place] [address] | | | | + + + [...] | | | | | [place] [address] | | | | + + + + + + | Glucose, | 94Comment: Testing | 65 - 99 mg/dL | EXTERNAL | | | Fasting | performed at [facility], [address] | | LAB | | | | [address], | | | | | | [place] [address] | | | | + + + + + + | BUN | 19Comment: Testing | 8 - 25 mg/dL | EXTERNAL | | | | performed at [facility], [address] | | LAB | | | | [address], | | | | | | [place] [address] | | | | + + + + + + | Creatinine | 1.01 (H)Comment: Testing | 0.50 - 1.00 | EXTERNAL | | | | performed at [facility], [address] | mg/dL | LAB | | | | [address], | | | | | | [place] [address] | | | | + + + + + + | BUN/Creatin | 19Comment: Testing | | EXTERNAL | | | ine Ratio | performed at [facility], [address] | | LAB | | | | [address], | | | | | | [place] [address] | | | | + + + + + + | Calcium | 8.1 (L)Comment: Testing | 8.5 - 10.5 | EXTERNAL | | | | performed at [facility], [address] | mg/dL | LAB | | | | [address], | | | | | | [place] [address] | | | | + + + + + + | Protein, | 5.9 (L)Comment: Testing | 6.3 - 8.2 g/dL | EXTERNAL | | | Total | performed at [facility], [address] | | LAB | | | | [address], | | | | | | [place] [address] | | | | + + + + + + | Albumin | 2.5 (L)Comment: Testing | 3.3 - 4.8 g/dL | EXTERNAL | | | | performed at [facility], [address] | | LAB | | | | [address], | | | | | | [place] [address] | | | | + + + + + + | Globulin | 3.4Comment: Testing | 1.3 - 4.9 g/dL | EXTERNAL | | | | performed at [facility], [address] | | LAB | | | | [address], | | | | | | [place] [address] | | | | + + + + + + | A/G Ratio | 0.7 (L)Comment: Testing | 1.0 - 2.4 | EXTERNAL | | | | performed at [facility], [address] | | LAB | | | | [address], | | | | | | [place] [address] | | | | + + + + + + | Bilirubin | 0.3Comment: Testing | 0.1 - 1.5 mg/dL | EXTERNAL | | | Total | performed at [facility], [address] | | LAB | | | | [address], | | | | | | [place] [address] | | | | + + + + + + | ALP, | 98Comment: Testing | 35 - 115 U/L | EXTERNAL | | | External | performed at [facility], [address] | | LAB | | | | [address], | | | | | | [place] [address] | | | | + + + + + + | AST | 24Comment: Testing | 10 - 45 U/L | EXTERNAL | | | | performed at [facility], [address] | | LAB | | | | [address], | | | | | | [place] [address] | | | | + + + + + + | ALT | 14Comment: Testing | 10 - 65 U/L | EXTERNAL | | | | performed at [facility], [address] | | LAB | | | | [address], | | | | | | [place] [address] | | | | + + + [...] | | | | | | at [facility], [address] | | | | | | [address], | | | | | | [place] [address] | | | | + + + [...] L | LAB | | | | [facility], [address] [facility] | | | | | | [place] | | | | | | [address] | | | | + + +---- + + + | Red Blood | 2.93 (L)Comment: Testing | 3.7 0 - 5.10 | EXTERNAL | | | Cells | performed at [facility], [address] | M/u L | LAB | | | Counted | [address], | | | | | | [place] [address] | | | | + + +---- + + + | Hemoglobin | 10.2 (L)Comment: Testing | 11. 3 - 15.5 | EXTERNAL | | | | performed at [facility], [address] | g/d L | LAB | | | | [address], | | | | | | [place] [address] | | | | + + +---- + + + | Hematocrit, | 31.6 (L)Comment: Testing | 34. 0 - 46.0 % | EXTERNAL | | | POC | performed at [facility], [address] | | LAB | | | | [address], | | | | | | [place] [address] | | | | + + +---- + + + | MCV | 107.8 (H)Comment: | 80. 0 - 100.0 fl | EXTERNAL | | | | Testing performed at | | LAB | | | | [facility], [address] | | | | | | [place] | | | | | | [address] | | | | + + +---- + + + | MCH | 34.8 (H)Comment: Testing | 27. 0 - 34.0 pg | EXTERNAL | | | | performed at [facility], [address] | | LAB | | | | [address], | | | | | | [place] [address] | | | | + + +---- + + + | MCHC | 32.3Comment: Testing | 32. 0 - 35.5 | EXTERNAL | | | | performed at [facility], [address] | g/d L | LAB | | | | [address], | | | | | | [place] [address] | | | | + + +---- + + + | RDW-CV | 57.3 (H)Comment: Testing | 37 - 53 fl | EXTERNAL | | | | performed at [facility], [address] | | LAB | | | | [address], | | | | | | [place] [address] | | | | + + +---- + + + | Platelet | 146 (L)Comment: Testing | 150 - 400 K/uL | EXTERNAL | | | Count | performed at [facility], [address] | | LAB | | | Plasma | [address], | | | | | | [place] [address] | | | | + + +---- + + + | MPV | 11.2Comment: Testing | fl | EXTERNAL | | | | performed at [facility], [address] | | LAB | | | | [address], | | | | | | [place] [address] | | | | + + +---- + + + | Differentia | MANUALComment: Testing | | EXTERNAL | | | l Type | performed at [facility], [address] | | LAB | | | | [address], | | | | | | [place] [address] | | | | + + +---- + + + | Segmented | 58Comment: Testing | % | EXTERNAL | | | Neutrophils | performed at [facility], [address] | | LAB | | | Manual | [address], | | | | | | [place] [address] | | | | + + +---- + + + | % Bands | 20Comment: Testing | % | EXTERNAL | | | | performed at [facility], [address] | | LAB | | | | [address], | | | | | | [place] [address] | | | | + + +---- + + + | Lymphocytes | 13Comment: Testing | % | EXTERNAL | | | Manual | performed at [facility], [address] | | LAB | | | | [address], | | | | | | [place] [address] | | | | + + +---- + + + | Monocytes | 7Comment: Testing | % | EXTERNAL | | | Manual | performed at [facility], [address] | | LAB | | | | [address], | | | | | | [place] [address] | | | | + + +---- + + + | Eosinophils | 2Comment: Testing | % | EXTERNAL | | | Manual | performed at [facility], [address] | | LAB | | | | [address], | | | | | | [place] [address] | | | | + + +---- + + + | Absolute | 9.23 (H)Comment: Testing | 1.9 0 - 7.40 | EXTERNAL | | | Neutrophils | performed at [facility], [address] | K/u L | LAB | | | | [address], | | | | | | [place] [address] | | | | + + +---- + + + | Bands | 3.18 (H)Comment: Testing | 0.0 0 - 0.20 | EXTERNAL | | | Manual | performed at [facility], [address] | K/u L | LAB | | | | [address], | | | | | | [place] [address] | | | | + + +---- + + + | Absolute | 2.07Comment: Testing | 1.0 0 - 3.90 | EXTERNAL | | | Lymphocytes | performed at [facility], [address] | K/u L | LAB | | | | [address], | | | | | | [place] [address] | | | | + + +---- + + + | Absolute | 1.11 (H)Comment: Testing | 0.0 0 - 0.80 | EXTERNAL | | | Monocytes | performed at [facility], [address] | K/u L | LAB | | | | [address], | | | | | | [place] [address] | | | | + + +---- + + + | Absolute | 0.32Comment: Testing | 0.0 0 - 0.50 | EXTERNAL | | | Eosinophils | performed at [facility], [address] | K/u L | LAB | | | | [address], | | | | | | [place] [address] | | | | + + +---- + + + | RBC | 2+Comment: | | EXTERNAL | | | Morphology | MACRO1+ANISONORMAL PLT | | LAB | | | | MORPHTesting performed | | | | | | at [facility], [address] | | | | | | [address], | | | | | | [place] [address] | | | | | |Testing performed at [facility], [address] [facility] [place] [address] | | | | | | | [...] EXTERNAL | | | | performed at [facility], [address] | | LAB | | | | [address], | | | | | | [place] [address] | | | | + + + [...] EXTERNAL | | | | performed at [facility], [address] | | LAB | | [...] | | | | | [place] [address] | | | | + + + + + + | K | 3.9Comment: Testing | 3.5 - 4.9 | EXTERNAL | | | | performed at [facility], [address] | mmol/L | LAB | | | | [address], | | | | | | [place] [address] | | | | + + + + + + | Cl | 109Comment: Testing | 99 - 109 mmol/L | EXTERNAL | | | | performed at [facility], [address] | | LAB | | | | [address], | | | | | | [place] [address] | | | | + + + + + + | CO2 | 24Comment: Testing | 23 - 32 mmol/L | EXTERNAL | | | | performed at [facility], [address] | | LAB | | | | [address], | | | | | | [place] [address] | | | | + + + + + + | Anion Gap | 8Comment: Testing | 5 - 20 mmol/L | EXTERNAL | | | | performed at [facility], [address] | | LAB | | | | [address], | | | | | | [place] [address] | | | | + + + + + + | Glucose, | 98Comment: Testing | 65 - 99 mg/dL | EXTERNAL | | | Fasting | performed at [facility], [address] | | LAB | | | | [address], | | | | | | [place] [address] | | | | + + + + + + | BUN | 25Comment: Testing | 8 - 25 mg/dL | EXTERNAL | | | | performed at [facility], [address] | | LAB | | | | [address], | | | | | | [place] [address] | | | | + + + + + + | Creatinine | 1.39 (H)Comment: Testing | 0.50 - 1.00 | EXTERNAL | | | | performed at [facility], [address] | mg/dL | LAB | | | | [address], | | | | | | [place] [address] | | | | + + + + + + | BUN/Creatin | 18Comment: Testing | | EXTERNAL | | | ine Ratio | performed at [facility], [address] | | LAB | | | | [address], | | | | | | [place] [address] | | | | + + + + + + | Calcium | 8.2 (L)Comment: Testing | 8.5 - 10.5 | EXTERNAL | | | | performed at [facility], [address] | mg/dL | LAB | | | | [address], | | | | | | [place] [address] | | | | + + + + + + | Protein, | 6.1 (L)Comment: Testing | 6.3 - 8.2 g/dL | EXTERNAL | | | Total | performed at [facility], [address] | | LAB | | | | [address], | | | | | | [place] [address] | | | | + + + + + + | Albumin | 2.4 (L)Comment: Testing | 3.3 - 4.8 g/dL | EXTERNAL | | | | performed at [facility], [address] | | LAB | | | | [address], | | | | | | [place] [address] | | | | + + + + + + | Globulin | 3.7Comment: Testing | 1.3 - 4.9 g/dL | EXTERNAL | | | | performed at [facility], [address] | | LAB | | | | [address], | | | | | | [place] [address] | | | | + + + + + + | A/G Ratio | 0.6 (L)Comment: Testing | 1.0 - 2.4 | EXTERNAL | | | | performed at [facility], [address] | | LAB | | | | [address], | | | | | | [place] [address] | | | | + + + + + + | Bilirubin | 0.4Comment: Testing | 0.1 - 1.5 mg/dL | EXTERNAL | | | Total | performed at [facility], [address] | | LAB | | | | [address], | | | | | | [place] [address] | | | | + + + + + + | ALP, | 111Comment: Testing | 35 - 115 U/L | EXTERNAL | | | External | performed at [facility], [address] | | LAB | | | | [address], | | | | | | [place] [address] | | | | + + + + + + | AST | 29Comment: Testing | 10 - 45 U/L | EXTERNAL | | | | performed at [facility], [address] | | LAB | | | | [address], | | | | | | [place] [address] | | | | + + + + + + | ALT | 14Comment: Testing | 10 - 65 U/L | EXTERNAL | | | | performed at [facility], [address] | | LAB | | | | [address], | | | | | | [place] [address] | | | | + + + [...] | | | | | [place] [address] | | | | + + + [...] K/uL | LAB | | | | [facility], [address] [facility] | | | | | | [place] | | | | | | [address] | | | | + + + + + + | Red Blood | 3.12 (L)Comment: Testing | 3.70 - 5.10 | EXTERNAL | | | Cells | performed at [facility], [address] | M/uL | LAB | | | Counted | [address], | | | | | | [place] [address] | | | | + + + + + + | Hemoglobin | 10.8 (L)Comment: Testing | 11.3 - 15.5 | EXTERNAL | | | | performed at [facility], [address] | g/dL | LAB | | | | [address], | | | | | | [place] [address] | | | | + + + + + + | Hematocrit, | 33.7 (L)Comment: Testing | 34.0 - 46.0 % | EXTERNAL | | | POC | performed at [facility], [address] | | LAB | | | | [address], | | | | | | [place] [address] | | | | + + + + + + | MCV | 108.0 (H)Comment: | 80.0 - 100.0 fl | EXTERNAL | | | | Testing performed at | | LAB | | | | [facility], [address] | | | | | | [place] | | | | | | [address] | | | | + + + + + + | MCH | 34.7 (H)Comment: Testing | 27.0 - 34.0 pg | EXTERNAL | | | | performed at [facility], [address] | | LAB | | | | [address], | | | | | | [place] [address] | | | | + + + + + + | MCHC | 32.1Comment: Testing | 32.0 - 35.5 | EXTERNAL | | | | performed at [facility], [address] | g/dL | LAB | | | | [address], | | | | | | [place] [address] | | | | + + + + + + | RDW-CV | 55.6 (H)Comment: Testing | 37 - 53 fl | EXTERNAL | | | | performed at [facility], [address] | | LAB | | | | [address], | | | | | | [place] [address] | | | | + + + + + + | Platelet | 153Comment: Testing | 150 - 400 K/uL | EXTERNAL | | | Count | performed at [facility], [address] | | LAB | | | Plasma | [address], | | | | | | [place] [address] | | | | + + + + + + | MPV | 11.2Comment: Testing | fl | EXTERNAL | | | | performed at [facility], [address] | | LAB | | | | [address], | | | | | | [place] [address] | | | | + + + + + + | Differentia | MANUALComment: Testing | | EXTERNAL | | | l Type | performed at [facility], [address] | | LAB | | | | [address], | | | | | | [place], [place] [address] | | | | + + + + + + | Segmented | 64Comment: Testing | % | EXTERNAL | | | Neutrophils | performed at [facility], [address] | | LAB | | | Manual | [address], | | | | | | [place] [address] | | | | + + + + + + | % Bands | 15Comment: Testing | % | EXTERNAL | | | | performed at [facility], [address] | | LAB | | | | [address], | | | | | | [place] [address] | | | | + + + + + + | % | 2Comment: Testing | % | EXTERNAL | | | Metamyelocy | performed at [facility], [address] | | LAB | | | irma | [address], | | | | | | [place] [address] | | | | + + + + + + | Lymphocytes | 12Comment: Testing | % | EXTERNAL | | | Manual | performed at [facility], [address] | | LAB | | | | [address], | | | | | | [place] [address] | | | | + + + + + + | Monocytes | 6Comment: Testing | % | EXTERNAL | | | Manual | performed at [facility], [address] | | LAB | | | | [address], | | | | | | [place] [address] | | | | + + + + + + | Eosinophils | 1Comment: Testing | % | EXTERNAL | | | Manual | performed at [facility], [address] | | LAB | | | | [address], | | | | | | [place] [address] | | | | + + + + + + | Absolute | 11.48 (H)Comment: | 1.90 - 7.40 | EXTERNAL | | | Neutrophils | Testing performed at | K/uL | LAB | | | | [facility], [address] | | | | | | [place] | | | | | | [address] | | | | + + + + + + | Bands | 2.69 (H)Comment: Testing | 0.00 - 0.20 | EXTERNAL | | | Manual | performed at [facility], [address] | K/uL | LAB | | | | [address], | | | | | | [place] [address] | | | | + + + + + + | Absolute | 0.36 (H)Comment: Testing | K/uL | EXTERNAL | | | Metamyelocy | performed at [facility], [address] | | LAB | | | irma | [address], | | | | | | [place] [address] | | | | + + + + + + | Absolute | 2.15Comment: Testing | 1.00 - 3.90 | EXTERNAL | | | Lymphocytes | performed at [facility], [address] | K/uL | LAB | | | | [address], | | | | | | [place] [address] | | | | + + + + + + | Absolute | 1.08 (H)Comment: Testing | 0.00 - 0.80 | EXTERNAL | | | Monocytes | performed at [facility], [address] | K/uL | LAB | | | | [address], | | | | | | [place] [address] | | | | + + + + + + | Absolute | 0.18Comment: Testing | 0.00 - 0.50 | EXTERNAL | | | Eosinophils | performed at [facility], [address] | K/uL | LAB | | | | [address], | | | | | | [place] [address] | | | | + + + + + + | RBC | 2+Comment: MACRONORMAL | | EXTERNAL | | | Morphology | PLT MORPHTesting | | LAB | | | | performed at [facility], [address] | | | | | | [address], | | | | | | [place] [address] | | | | | | | [...] EXTERNAL | | | | performed at [facility];[address] | mmol/L | LAB | | | | [address];[place] | | | | | | [address] | | | | + + + + + + | K | 3.8Comment: Testing | 3.5 - 4.9 | EXTERNAL | | | | performed at [facility];[address] | mmol/L | LAB | | | | [address];[place] | | | | | | [address] | | | | + + + + + + | Cl | 107Comment: Testing | 99 - 109 mmol/L | EXTERNAL | | | | performed at [facility];[address] | | LAB | | | | [address];[place] | | | | | | [address] | | | | + + + + + + | CO2 | 26Comment: Testing | 23 - 32 mmol/L | EXTERNAL | | | | performed at [facility];[address] | | LAB | | | | [address];[place] | | | | | | [address] | | | | + + + + + + | Anion Gap | 12Comment: Testing | 5 - 20 mmol/L | EXTERNAL | | | | performed at [facility];[address] | | LAB | | | | [address];[place] | | | | | | [address] | | | | + + + + + + | Glucose, | 127 (H)Comment: Testing | 65 - 99 mg/dL | EXTERNAL | | | Fasting | performed at [facility];[address] | | LAB | | | | [address];[place] | | | | | | [address] | | | | + + + + + + | BUN | 28 (H)Comment: Testing | 8 - 25 mg/dL | EXTERNAL | | | | performed at [facility];[address] | | LAB | | | | [address];[place] | | | | | | [address] | | | | + + + + + + | Creatinine | 1.8 (H)Comment: Testing | 0.50 - 1.00 | EXTERNAL | | | | performed at [facility];[address] | mg/dL | LAB | | | | [address];[place] | | | | | | [address] | | | | + + + + + + | BUN/Creatin | 16Comment: Testing | | EXTERNAL | | | ine Ratio | performed at [facility];[address] | | LAB | | | | [address];[place] | | | | | | [address] | | | | + + + + + + | Calcium | 7.6 (L)Comment: Testing | 8.5 - 10.5 | EXTERNAL | | | | performed at [facility];[address] | mg/dL | LAB | | | | [address];[place], [place] | | | | | | [address] | | | | + + + [...] | | | | | | at [facility];[address] [place] [address] | | | | | | Blvd;[place] [address] | | | | + + + [...] | | | | | | at [facility];[address] [place] [address] | | | | | | Blvd;[place] [address] | | | | + + + [...] L | LAB | | | | [facility], [address] | | | | | | [place] | | | | | | [address] | | | | + + +---- + + + | Red Blood | 3.07 (L)Comment: Testing | 3.7 0 - 5.10 | EXTERNAL | | | Cells | performed at [facility], [address] | M/u L | LAB | | | Counted | [address], | | | | | | [place] [address] | | | | + + +---- + + + | Hemoglobin | 10.8 (L)Comment: Testing | 11. 3 - 15.5 | EXTERNAL | | | | performed at [facility], [address] | g/d L | LAB | | | | [address], | | | | | | [place] [address] | | | | + + +---- + + + | Hematocrit, | 32.7 (L)Comment: Testing | 34. 0 - 46.0 % | EXTERNAL | | | POC | performed at [facility], [address] | | LAB | | | | [address] [place], | | | | | | [place] [address] | | | | + + +---- + + + | MCV | 106.4 (H)Comment: | 80. 0 - 100.0 fl | EXTERNAL | | | | Testing performed at | | LAB | | | | [facility], [address] | | | | | | [place] | | | | | | [address] | | | | + + +---- + + + | MCH | 35.1 (H)Comment: Testing | 27. 0 - 34.0 pg | EXTERNAL | | | | performed at [facility], [address] | | LAB | | | | [address], | | | | | | [place] [address] | | | | + + +---- + + + | MCHC | 33.0Comment: Testing | 32. 0 - 35.5 | EXTERNAL | | | | performed at [facility], [address] | g/d L | LAB | | | | [address], | | | | | | [place] [address] | | | | + + +---- + + + | RDW-CV | 56.0 (H)Comment: Testing | 37 - 53 fl | EXTERNAL | | | | performed at [facility], [address] | | LAB | | | | [address], | | | | | | [place] [address] | | | | + + +---- + + + | Platelet | 151Comment: Testing | 150 - 400 K/uL | EXTERNAL | | | Count | performed at [facility], [address] | | LAB | | | Plasma | [address], | | | | | | [place] [address] | | | | + + +---- + + + | MPV | 11.7Comment: Testing | fl | EXTERNAL | | | | performed at [facility], [address] | | LAB | | | | [address], | | | | | | [place] [address] | | | | + + +---- + + + | Differentia | MANUALComment: Testing | | EXTERNAL | | | l Type | performed at [facility], [address] | | LAB | | | | [address], | | | | | | [place] [address] | | | | + + +---- + + + | Segmented | 57Comment: Testing | % | EXTERNAL | | | Neutrophils | performed at [facility], [address] | | LAB | | | Manual | [address], | | | | | | [place] [address] | | | | + + +---- + + + | % Bands | 26Comment: Testing | % | EXTERNAL | | | | performed at [facility], [address] | | LAB | | | | [address], | | | | | | [place] [address] | | | | + + +---- [...] | | | | | [place] [address] | | | | + + +---- + + + | Monocytes | 4Comment: Testing | % | EXTERNAL | | | Manual | performed at [facility], [address] | | LAB | | | | [facility] [address] [address], | | | | | | [place] [address] | | | | + + +---- + + + | Absolute | 10.53 (H)Comment: | 1.9 0 - 7.40 | EXTERNAL | | | Neutrophils | Testing performed at | K/u L | LAB | | | | [facility], [address] | | | | | | [place] | | | | | | [address] | | | | + + +---- + + + | Bands | 4.80 (H)Comment: Testing | 0.0 0 - 0.20 | EXTERNAL | | | Manual | performed at [facility], [address] | K/u L | LAB | | | | [address], | | | | | | [place] [address] | | | | + + +---- + + + | Absolute | 0.74 (H)Comment: Testing | K/u L | EXTERNAL | | | Metamyelocy | performed at [facility], [address] | | LAB | | | [address] | [address], | | | | | | [place] [address] | | | | + + +---- + + + | Absolute | 1.66Comment: Testing | 1.0 0 - 3.90 | EXTERNAL | | | Lymphocytes | performed at [facility], [address] | K/u L | LAB | | | | [address], | | | | | | [place] [address] | | | | + + +---- + + + | Absolute | 0.74Comment: Testing | 0.0 0 - 0.80 | EXTERNAL | | | Monocytes | performed at [facility], [address] | K/u L | LAB | | | | [address] [place], | | | | | | [place] [address] | | | | + + +---- + + + | RBC | 2+Comment: | | EXTERNAL | | | Morphology | MACRO1+ANISONORMAL PLT | | LAB | | | | MORPHTesting performed | | | | | | at [facility], [address] | | | | | | [address] [place], | | | | | | [place] [address] | | | | | |Testing performed at [facility], [address] [place] [address] | | | | | | | [...] EXTERNAL | | | | performed at [facility];[address] | | LAB | | | | [address];[place], [place] | | | | | | [address] | | | | + + + [...] | | | | | performed at [facility];[address] | | | | | | [address];[place], [place] | | | | | | [address] | | | | + + + [...] EXTERNAL | | | | performed at [facility];[address] | mmol/L | LAB | | | | [address];[place] | | | | | | [address] | | | | + + + [...] EXTERNAL | | | | performed at [facility];[address] | mmol/L | LAB | | | | [address];[place] | | | | | | [address] | | | | + + + + + + | K | 4.4Comment: SPECIMEN | 3.5 - 4.9 | EXTERNAL | | | | SLIGHTLY | mmol/L | LAB | | | | HEMOLYZEDTesting | | | | | | performed at [facility];[address] | | | | | | [address];[place] | | | | | | [address] | | | | + + + + + + | Cl | 106Comment: Testing | 99 - 109 mmol/L | EXTERNAL | | | | performed at [facility];[address] | | LAB | | | | [address];[place] | | | | | | [address] | | | | + + + + + + | CO2 | 24Comment: Testing | 23 - 32 mmol/L | EXTERNAL | | | | performed at [facility];[address] | | LAB | | | | [address];[place] | | | | | | [address] | | | | + + + + + + | Anion Gap | 12Comment: Testing | 5 - 20 mmol/L | EXTERNAL | | | | performed at [facility];[address] | | LAB | | | | [address];[place] | | | | | | [address] | | | | + + + + + + | Glucose, | 103 (H)Comment: Testing | 65 - 99 mg/dL | EXTERNAL | | | Fasting | performed at [facility];[address] | | LAB | | | | [address];[place] | | | | | | [address] | | | | + + + + + + | BUN | 22Comment: Testing | 8 - 25 mg/dL | EXTERNAL | | | | performed at [facility];[address] | | LAB | | | | [address];[place] | | | | | | [address] | | | | + + + + + + | Creatinine | 1.9 (H)Comment: Testing | 0.50 - 1.00 | EXTERNAL | | | | performed at [facility];888 | mg/dL | LAB | | | | [address];[place] | | | | | | [address] | | | | + + + + + + | BUN/Creatin | 12Comment: Testing | | EXTERNAL | | | ine Ratio | performed at [facility];[address] | | LAB | | | | [address];[place] | | | | | | [address] | | | | + + + + + + | Calcium | 7.4 (L)Comment: Testing | 8.5 - 10.5 | EXTERNAL | | | | performed at [facility];[address] | mg/dL | LAB | | | | [address];[place] | | | | | | [address] | | | | + + + + + + | Protein, | 6.5Comment: Testing | 6.3 - 8.2 g/dL | EXTERNAL | | | Total | performed at [facility];[address] | | LAB | | | | [address];[place] | | | | | | [address] | | | | + + + + + + | Albumin | 2.2 (L)Comment: Testing | 3.3 - 4.8 g/dL | EXTERNAL | | | | performed at [facility];[address] | | LAB | | | | [address];[place] | | | | | | [address] | | | | + + + + + + | Globulin | 4.4Comment: Testing | 1.3 - 4.9 g/dL | EXTERNAL | | | | performed at [facility];[address] | | LAB | | | | [address];[place] | | | | | | [address] | | | | + + + + + + | A/G Ratio | 0.5 (L)Comment: Testing | 1.0 - 2.4 | EXTERNAL | | | | performed at [facility];[address] | | LAB | | | | [address];[place] | | | | | | [address] | | | | + + + + + + | Bilirubin | 0.5Comment: Testing | 0.1 - 1.5 mg/dL | EXTERNAL | | | Total | performed at [facility];[address] | | LAB | | | | [address];[place] | | | | | | [address] | | | | + + + + + + | ALP, | 148 (H)Comment: Testing | 35 - 115 U/L | EXTERNAL | | | External | performed at [facility];[address] | | LAB | | | | [address];[place] | | | | | | [address] | | | | + + + + + + | AST | 41Comment: SPECIMEN | 10 - 45 U/L | EXTERNAL | | | | SLIGHTLY | | LAB | | | | HEMOLYZEDTesting | | | | | | performed at [facility];[address] | | | | | | [address];[place] | | | | | | [address] | | | | + + + + + + | ALT | 23Comment: Testing | 10 - 65 U/L | EXTERNAL | | | | performed at [facility];[address] | | LAB | | | | [facility];[place], [place] | | | | | | [address] | | | | + + + [...] | | | | | | at [facility];[address] [facility] | | | | | | [address];[place] [address] | | | | + + + [...] WORKUP | | | Testing performed at [facility], [address], [place] | | | [address] | | + + + + +---------+ [...] | | | | | [place] [address] | | | | + + + + + + | Clarity | CLOUDYComment: Testing | | EXTERNAL | | | | performed at [facility], [address] | | LAB | | | | [address], | | | | | | [place] [address] | | | | + + + + + + | Specific | 1.015Comment: Testing | 1.002 - 1.030 | EXTERNAL | | | [place], | performed at [facility], [address] | | LAB | | | Urine | [address], | | | | | | [place] [address] | | | | + + + + + + | Leukocyte | SMALL (A)Comment: | | EXTERNAL | | | Esterase, | Testing performed at | | LAB | | | Urine | [facility], [address] | | | | | | [place] | | | | | | [address] | | | | + + + + + + | Nitrite, | NEGATIVEComment: Testing | | EXTERNAL | | | Urine | performed at [facility], [address] | | LAB | | | | [address], | | | | | | [place] [address] | | | | + + + + + + | Urobilinoge | 0.2Comment: Testing | mg/dL | EXTERNAL | | | n, Urine | performed at [facility], [address] | | LAB | | | | [address], | | | | | | [place] [address] | | | | + + + + + + | Protein, | 100 (A)Comment: Testing | mg/dL | EXTERNAL | | | Urine | performed at [facility], [address] | | LAB | | | | [address], | | | | | | [place] [address] | | | | + + + + + + | pH, Urine | 6.5Comment: Testing | 5.0 - 8.0 | EXTERNAL | | | | performed at [facility], [address] | | LAB | | | | [address], | | | | | | [place] [address] | | | | + + + + + + | Blood, | MODERATE (A)Comment: | | EXTERNAL | | | Urine | Testing performed at | | LAB | | | | [facility], [address] | | | | | | [place] | | | | | | [address] | | | | + + + + + + | Ketones | NEGATIVEComment: Testing | mg/dL | EXTERNAL | | | | performed at [facility], [address] | | LAB | | | | [address], | | | | | | [place] [address] | | | | + + + + + + | Bilirubin, | NEGATIVEComment: Testing | | EXTERNAL | | | Urine | performed at [facility], [address] | | LAB | | | | [address] [place], | | | | | | [place] [address] | | | | + + + + + + | Glucose, | NEGATIVEComment: Testing | mg/dL | EXTERNAL | | | Urine | performed at [facility], [address] | | LAB | | | | [address], | | | | | | [place] [address] | | | | + + + [...] | | | | | [place] [address] | | | | + + + + + + | Epithelial | 0-2Comment: Testing | /lpf | EXTERNAL | | | Cells | performed at [facility], [address] | | LAB | | | | [address] [place], | | | | | | [place] [address] | | | | + + + + + + | Bacteria, | TRACE (A)Comment: | | EXTERNAL | | | UA | Testing performed at | | LAB | | | | [facility], [address] | | | | | | [place] | | | | | | [address] | | | | + + + + + + | Urinalysis | CULTURE TO | | EXTERNAL | | | Comments | FOLLOWComment: Testing | | LAB | | | | performed at [facility], [address] | | | | | | [address] [place], | | | | | | [place] [address] | | | | + + + [...] EXTERNAL | | | | performed at [facility];888 | mg/dL | LAB | | | | [address];[place], [place] | | | | | | [address] | | | | + + + [...] LAB | | C.diffAbnormal Testing performed at [facility];[address] [place] [address];[place], [place] | | | [phone] NAP1 BI 027 NAP1 BI | | | PRESUMPTIVE NEGATIVE Detection of 027 NAP1 BI strains of C. difficile | | | is presumptive and for epidemiological purposes and not intended to | | | guide or monitor treatment for C. difficile infections. Testing | | | performed at [facility];[address] [place] [address];[place] [address] | | + + + + +---------+ [...] EXTERNAL | | | | performed at [facility];888 | mmol/L | LAB | | | | [address];[place], [place] | | | | | | [address] | | | | + + + [...] | | | | | | at [facility];[address] [place] [address] | | | | | | [facility];[place] [address] | | | | + + + [...] EXTERNAL | | | | performed at [facility];[address] | | LAB | | | | [address] [facility];[place], [place] | | | | | | [address] | | | | + + + [...] | | | | | performed at [facility];[address] | | | | | | [address];[place], [place] | | | | | | [address] | | | | + + + [...] K/uL | LAB | | | | [facility];[address];[place] [address] | | | | + + + + + + | Red Blood | 3.66 (L)Comment: Testing | 3.70 - 5.10 | EXTERNAL | | | Cells | performed at [facility];[address] | M/uL | LAB | | | Counted | [address];[place] | | | | | | [address] | | | | + + + + + + | Hemoglobin | 12.6Comment: Testing | 11.3 - 15.5 | EXTERNAL | | | | performed at [facility];888 | g/dL | LAB | | | | [address];[place] | | | | | | [address] | | | | + + + + + + | Hematocrit, | 38.9Comment: Testing | 34.0 - 46.0 % | EXTERNAL | | | POC | performed at [facility];[address] | | LAB | | | | [address];[place] | | | | | | [address] | | | | + + + + + + | MCV | 106.3 (H)Comment: | 80.0 - 100.0 fl | EXTERNAL | | | | Testing performed at | | LAB | | | | [facility];[address];[place] [address] | | | | + + + + + + | MCH | 34.3 (H)Comment: Testing | 27.0 - 34.0 pg | EXTERNAL | | | | performed at [facility];[address] | | LAB | | | | [address];[place] | | | | | | [address] | | | | + + + + + + | MCHC | 32.3Comment: Testing | 32.0 - 35.5 | EXTERNAL | | | | performed at [facility];888 | g/dL | LAB | | | | [address];[place] | | | | | | [address] | | | | + + + + + + | RDW-CV | 54.7 (H)Comment: Testing | 37 - 53 fl | EXTERNAL | | | | performed at [facility];[address] | | LAB | | | | [address];[place] | | | | | | [address] | | | | + + + + + + | Platelet | 167Comment: Testing | 150 - 400 K/uL | EXTERNAL | | | Count | performed at [facility];[address] | | LAB | | | Plasma | [address];[place] | | | | | | [address] | | | | + + + + + + | MPV | 10.6Comment: Testing | fl | EXTERNAL | | | | performed at [facility];[address] | | LAB | | | | [address];[place] | | | | | | [address] | | | | + + + + + + | Differentia | MANUALComment: Testing | | EXTERNAL | | | l Type | performed at [facility];[address] | | LAB | | | | [address];[place] | | | | | | [address] | | | | + + + + + + | Segmented | 54Comment: Testing | % | EXTERNAL | | | Neutrophils | performed at [facility];[address] | | LAB | | | Manual | [address];[place] | | | | | | [address] | | | | + + + + + + | % Bands | 18Comment: Testing | % | EXTERNAL | | | | performed at [facility];[address] | | LAB | | | | [address];[place] | | | | | | [address] | | | | + + + + + + | Lymphocytes | 16Comment: Testing | % | EXTERNAL | | | Manual | performed at [facility];[address] | | LAB | | | | [address];[place] | | | | | | [address] | | | | + + + + + + | Monocytes | 12Comment: Testing | % | EXTERNAL | | | Manual | performed at [facility];[address] | | LAB | | | | [address];[place] | | | | | | [address] | | | | + + + + + + | Absolute | 10.69 (H)Comment: | 1.90 - 7.40 | EXTERNAL | | | Neutrophils | Testing performed at | K/uL | LAB | | | | [facility];[address];[place] [address] | | | | + + + + + + | Bands | 3.56 (H)Comment: Testing | 0.00 - 0.20 | EXTERNAL | | | Manual | performed at [facility];888 | K/uL | LAB | | | | [address];[place] | | | | | | [address] | | | | + + + + + + | Absolute | 3.16Comment: Testing | 1.00 - 3.90 | EXTERNAL | | | Lymphocytes | performed at [facility];888 | K/uL | LAB | | | | [address];[place] | | | | | | [address] | | | | + + + + + + | Absolute | 2.37 (H)Comment: Testing | 0.00 - 0.80 | EXTERNAL | | | Monocytes | performed at [facility];888 | K/uL | LAB | | | | [address];[place] | | | | | | [address] | | | | + + + + + + | Platelet | ADEQUATEComment: Testing | | EXTERNAL | | | Estimate | performed at [facility];[address] | | LAB | | | | [address];[place] | | | | | | [address] | | | | + + + + + + | RBC | NORMAL PLT MORPHComment: | | EXTERNAL | | | Morphology | 1+ANISOTesting | | LAB | | | | performed at [facility];[address] | | | | | | [address];[place], [place] | | | | | | [address] | | | | | | | [...] EXTERNAL | | | | performed at [facility];888 | uIU/mL | LAB | | | | [address];[place], [place] | | | | | | [address] | | | | + + + [...] EXTERNAL | | | | performed at [facility];8 | | LAB | | | | [address];[place] | | | | | | [address] | | | | + + + [...] | | LAB | | | | [facility];[address];[place] [address] | | | | + + + [...] EXTERNAL | | | | performed at [facility];[address] | | LAB | | | | [address];[place], [place] | | | | | | [address] | | | | + + + [...] EXTERNAL | | | | performed at [facility];[address] | | LAB | | | | [address];[place] | | | | | | [address] | | | | + + + [...] EXTERNAL | | | | performed at [facility];888 | mmol/L | LAB | | | | [address];[place] | | | | | | [address] | | | | + + + + + + | K | 3.4 (L)Comment: Testing | 3.5 - 4.9 | EXTERNAL | | | | performed at [facility];888 | mmol/L | LAB | | | | [address];[place] | | | | | | [address] | | | | + + + + + + | Cl | 101Comment: Testing | 99 - 109 mmol/L | EXTERNAL | | | | performed at [facility];[address] | | LAB | | | | [address];[place] | | | | | | [address] | | | | + + + + + + | CO2 | 27Comment: Testing | 23 - 32 mmol/L | EXTERNAL | | | | performed at [facility];[address] | | LAB | | | | [address];[place] | | | | | | [address] | | | | + + + + + + | Anion Gap | 12Comment: Testing | 5 - 20 mmol/L | EXTERNAL | | | | performed at [facility];[address] | | LAB | | | | [address];[place] | | | | | | [address] | | | | + + + + + + | Glucose, | 106 (H)Comment: Testing | 65 - 99 mg/dL | EXTERNAL | | | Fasting | performed at [facility];[address] | | LAB | | | | [address];[place] | | | | | | [address] | | | | + + + + + + | BUN | 18Comment: Testing | 8 - 25 mg/dL | EXTERNAL | | | | performed at [facility];[address] | | LAB | | | | [address];[place] | | | | | | [address] | | | | + + + + + + | Creatinine | 1.3 (H)Comment: Testing | 0.50 - 1.00 | EXTERNAL | | | | performed at [facility];888 | mg/dL | LAB | | | | [address];[place] | | | | | | [address] | | | | + + + + + + | BUN/Creatin | 14Comment: Testing | | EXTERNAL | | | ine Ratio | performed at [facility];888 | | LAB | | | | [address];[place] | | | | | | [address] | | | | + + + + + + | Calcium | 7.3 (L)Comment: Testing | 8.5 - 10.5 | EXTERNAL | | | | performed at [facility];888 | mg/dL | LAB | | | | [address];[place] | | | | | | [address] | | | | + + + + + + | Protein, | 7.9Comment: Testing | 6.3 - 8.2 g/dL | EXTERNAL | | | Total | performed at [facility];[address] | | LAB | | | | [address];[place] | | | | | | [address] | | | | + + + + + + | Albumin | 2.5 (L)Comment: Testing | 3.3 - 4.8 g/dL | EXTERNAL | | | | performed at [facility];[address] | | LAB | | | | [address];[place] | | | | | | [address] | | | | + + + + + + | Globulin | 5.4 (H)Comment: Testing | 1.3 - 4.9 g/dL | EXTERNAL | | | | performed at [facility];[address] | | LAB | | | | [address];[place] | | | | | | [address] | | | | + + + + + + | A/G Ratio | 0.5 (L)Comment: Testing | 1.0 - 2.4 | EXTERNAL | | | | performed at [facility];[address] | | LAB | | | | [address];[place] | | | | | | [address] | | | | + + + + + + | Bilirubin | 0.6Comment: Testing | 0.1 - 1.5 mg/dL | EXTERNAL | | | Total | performed at [facility];[address] | | LAB | | | | [address];[place] | | | | | | [address] | | | | + + + + + + | ALP, | 188 (H)Comment: Testing | 35 - 115 U/L | EXTERNAL | | | External | performed at [facility];[address] | | LAB | | | | [address];[place] | | | | | | [address] | | | | + + + + + + | AST | 51 (H)Comment: Testing | 10 - 45 U/L | EXTERNAL | | | | performed at [facility];[address] | | LAB | | | | [address];[place] | | | | | | [address] | | | | + + + + + + | ALT | 30Comment: Testing | 10 - 65 U/L | EXTERNAL | | | | performed at [facility];[address] | | LAB | | | | [address];[place] | | | | | | [address] | | | | + + + [...] | | | | | | at [facility];[address] [place] [address] | | | | | | [facility];[place] [address] | | | | + + + [...] | Manuel Blake - 01/05/2019 4:32 AM ALTAGRCAIA COLEEnid [id number] yearsXR | | CHEST 1 VIEW01/28/2015 2:40 [...]
--- OUTSIDE RECORDS SUMMARY | ~2019-10-16 | XMS | Clinical Summary ---
Demographics + + + | Address | [address] | | | [place] [address] | + + + | Home Phone | | + + + | Preferred Language | Unknown | + + + | Marital Status | | + + + | Orthodoxy Affiliation | 1041 | + + + | Race | Unknown | + + + | Ethnic Group | Unknown | + + + Author + + + | Author | [facility] [employer] (Historical as of | | | 01-06-19) | + + + | Organization | [facility] [employer] (Historical as of | | | 01-06-19) [...] Team Providers + +------+ + | Care Dividend Clerk Name | Role | Phone | [...] | MA - GENERIC | MA-GEN | [id number] | Medica | | | | | [...] | | | | | | | [address] | + +--------+ +--------+ + +
--- OUTSIDE RECORDS SUMMARY | ~2019-10-16 | XMS | Encounter Summary ---
Demographics + + + | Address | [address] | | | [place] [address] | + + + | Home Phone [...] Team Providers + +------+ + | Care Forestry Fire Aid Name | Role | Phone | + [...] | | CONSULT | [place] | [place] [address] | | | | | | [place], [place] | Phone: | | | | | | [address] | [phone] | | | | | | Phone: | Fax: | | | | | | [phone] | [phone] | | | | | | Fax: | | | | | | | [phone] | | +--------+--------+ + + + + [...] | Dx); Kyphosis | | | | [place], | [place], [place] | deformity of spine | | | | [place] [address] | [address] | | | | | [phone] | | | +--------+---------+ + + + [...] oxygen at 2 L per minute at [facility] while she slept. Over last 3 [...] A copy of the patient's echocardiogram from [facility] will be reviewed. CC: Yovani Santana documented in this encounter Plan of Treatment +--------+---------+ + + + | Date | Type | Specialty | Care Team | Description | +--------+---------+ + + + | 10/24/ | Office | Cardiology | Yaquelin Alves DO | | | 2019 | Visit | | [address] | | | | | | [place] | | | | | | [address] | | | | | | | | +--------+---------+ + + + documented as of this encounter Results PFT PULMONARY FUNCTION TESTING ORDERS Full PFT ([place] w/BD, lung volumes, diffusion)?: Yes; Rest and [...] Melendez MD 03/27/2014 13:24 | | | [facility] | | + + + [...] signed by: Gary Melendez MD 03/27/2014 13:24[facility] | | [facility] | | | |No prior pulmonary function tests available for comparison. | | | |Test performed: 03/26/14 | |Electronically signed by: Gary Melendez MD 03/27/2014 13:24 | |[facility] | + + documented in this encounter Visit Diagnoses + + | Diagnosis | + + | Hypoxemia - Primary | + + | Kyphosis deformity of spine Kyphosis (acquired) (postural) | + + documented in this encounter
--- OUTSIDE RECORDS SUMMARY | ~2019-10-16 | XMS | Encounter Summary ---
Demographics + + + | Address | [address] | | | [place] [address] | + + + | Home Phone [...] Providers + +------+ + | Care Medical Authorization Specialist Name | Role | Phone | [...] [place], [place] | | | | | [place], [place] | [address] | | | | | [address] | | | | | | [phone] | | | +--------+ + + + [...] | | | | | [place] | | | | | | [address] | | | | | | | [...] 0.03 m/s | | | MV Dec Mccormick: 9.74 m/s2 MV DecT: 91.63 ms MV E Billy: 0.89 | | | m/s MV E/A Ratio: 26.03 MV PHT: 26.57 ms MVA By PHT: 8.27 | | | cm2 Septal e': 0.06 m/s Septal E/e': 12.90 Lateral e': | | | 0.09 m/s Lateral E/e': 8.96 RAP: 5 mmHg RVSP: 17.59 mmHg | | | TR maxP.59 mmHg TR Vmax: 1.77 m/s Mixer Driver: NAIF | | | Authenticated by: Con[facility] Report Date/Time: -- | | | 08_24-4-2771_3:51:12 | | + + + + + [...] cmLVPWd: 1.14 cmLVOT | | Area: 3.33 mv5VESZ Diam: 2.06 cm%FS: 26.43 %EF(Teich): 51.67 %ESV(Teich): [...] (A-L): | | 45.82 ml/m2LAAs A2C: 22.15 oy3INBYN A-L A2C: 71.25 mlLALs A2C: 5.84 cmLAAs A4C: | | 28.64 do8NJHLD A-L A4C: 104.24 mlLALs A4C: 6.68 cmRAAs: 14.65 ko6UJATZ A-L: | | 33.90 mlRAESV MOD: 34.21 mlRALs: 5.37 cmAV maxP.81 mmHgAV meanP.70 | | mmHgAV Vmax: 1.30 m/Sorin Vmean: 0.90 m/Sorin VTI: 24.74 cmAVA Vmax: 2.36 cm2AVA | | (VTI): 2.24 eq0VZNT maxP.41 mmHgLVOT meanP.88 mmHgLVSI Dopp: 27.63 | | ml/m2LVSV Dopp: 55.54 mlLVOT Vmax: 0.92 m/sLVOT Vmean: 0.64 m/sLVOT VTI: 16.66 | | cmMV A Billy: 0.03 m/sMV Dec Mccormick: 9.74 m/s2MV DecT: 91.63 msMV E Billy: 0.89 m/sMV | | E/A Ratio: 26.03MV PHT: 26.57 msMVA By PHT: 8.27 bi6Mrwewn e': 0.06 m/sSeptal | | E/e': 12.90Lateral e': 0.09 m/sLateral E/e': 8.96RAP: 5 mmHgRVSP: 17.59 mmHgTR | | maxP.59 mmHgTR Vmax: 1.77 m/s Mixer Driver: DHAuthenticated by: Ariadnahed | | [facility] Date/Time: -- 63_53-6-4857_3:51:12 IMPRESSION: 1. The left ventricle is | [...] A Billy: 0.03 m/s | |MV Dec Mccormick: 9.74 m/s2 | |MV DecT: 91.63 ms [...] |TR Vmax: 1.77 m/s | | | |Mixer Driver: | |Authenticated by: Conor Garcia | |Report Date/Time: -29_07-4-0341_4:51:12 | | | |IMPRESSION: | |1. The [...]
--- OUTSIDE RECORDS SUMMARY | ~2019-10-16 | XMS | Encounter Summary ---
Demographics + + + | Address | [address] | | | [place] [address] | + + + | Home Phone [...] + +------+ + | Care Human Resources Temp Name | Role | Phone | + [...] + | 03/26/ | Office | [facility] | Gary Melendez, | Hypoxemia (Primary | | 2014 | Visit | PULMONARY [address] | MD [address] | Dx); Kyphosis | | | | [place], | [place], [place] | deformity of spine; | | | | [place] [address] | [address] | Restrictive lung | | | | [phone] | | disease | +--------+---------+ + + [...] [place] | | | | | | [id number] | | | | | | | [...] + | MISCELLANEOUS LAB | | | [phone] | + +---------+ + + | MISCELANIOUS LAB | | | [phone] | + +---------+ + + documented in this encounter Visit Diagnoses + + | Diagnosis | + + | Hypoxemia - Primary | + + | 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
--- OUTSIDE RECORDS SUMMARY | ~2019-10-16 | XMS | Encounter Summary ---
Demographics + + + | Address | [address] | | | [place] [address] | + + + | Home Phone [...] + + + | Author | [facility] | | | and [place] | + + + | Organization | [facility] | | | [...] Team Providers + +------+ + | Care Box Nailer Name | Role | Phone | + [...] | disease (Primary | | | | [place], | [place], [place] | Dx); Hypoxemia; | | | | [place] [address] | [address] | Kyphosis deformity | | | | [phone] | | of spine | +--------+---------+ + [...] techniques, exercise, and stress management. In some [facility], a lung transplant is an option. Your healthcare team may include: A primary care provider,such as your family doctor. A belt maker,a specialist in lung problems. A pulmonary nurse specialistwho helps you understand and carry out your treatment. A pulmonary rehabilitation specialistwho helps you gain strength through exercise. A social workerwho helps with your daily needs, family life, and stress. [phone] [employer]. [address] [place] [address]. All righ ts reserved. This information is [...] No new medical issues are reported. Currently pOal Petty is able to walk one block [...] | | | | | [place] | | | | | | [id number] | | | | | | | [...]
--- OUTSIDE RECORDS SUMMARY | ~2019-10-16 | XMS | Encounter Summary ---
Demographics + + + | Address | [address] | | | [place] [address] | + + + | Home Phone [...] Team Providers + +------+ + | Care Associate Professor Of Kinesiology Name | Role | Phone | + [...] | | | CONSULT | [place] | [place] [address] | | | | | | [place], [place] | Phone: | | | | | | [address] | [phone] | | | | | | Phone: | Fax: | | | | | | [phone] | [phone] | | | | | | Fax: | | | | | | | [phone] | | +--------+--------+ + + + + [...] | Dx); Kyphosis | | | | [address] [place], | [place], [place] | deformity [place] spine | | | | [place] [address] | [address] | | | | | [phone] | | | +--------+---------+ + + + [...] [facility]. Over last 3 [...] A copy of the patient's echocardiogram from [facility] will be reviewed. CC: [...] | | | | | [place] | | | | | | [address] | | | | | | | | +--------+---------+ + + + documented as of this encounter Results PFT PULMONARY FUNCTION TESTING ORDERS Full PFT ([place] w/BD, lung volumes, diffusion)?: Yes; Rest and [...] Melendez MD 03/27/2014 13:24 | | | [facility] | | + + + + + [...] signed by: Gary Melendez MD 03/27/2014 13:24[facility] | | [facility] | | | |No prior pulmonary function tests available for comparison. | | | |Test performed: 03/26/14 | |Electronically signed by: Gary Melendez MD 03/27/2014 13:24 | |[facility] | + + documented in this encounter Visit Diagnoses + + | Diagnosis | + + | Hypoxemia - Primary | + + | Kyphosis deformity of spine Kyphosis (acquired) (postural) | + + documented in this encounter
--- OUTSIDE RECORDS SUMMARY | 2019-10-16 14:28 | XMS ---
PreManage Notification: COLE ERNST Security Bottom Wheeler Events No recent Security Events currently on file CRITERIA MET - 6 ED Visits in 6 Months - [facility] - Has Care Guidelines - PDMP - [facility] - 2 Visits in 30 Days CARE PROVIDERS Name Unknown Longterm Facility Current PHONE: [phone] [facility] 02/06/2018-Current PHONE: [phone] Cristhian Rinaldi [employer] Tech/Can Tender 01/17/2019-Current PHONE: [phone] Anu has no Care Guidelines for this patient. Care History Medical/Surgical 10/08/2019 [facility] - PATIENT HAS AN APT WITH DR DE JESUS ON 10/16/2019 FOR FOLLOW UP TO ED VISIT. 06/13/2019 [facility] Patient being seen for multiple falls.\T\nbsp; Patient has follow up appointment with Dr. De Jesus 06/14/2019 . 06/04/2019 [facility] Patient was admitted 06/03/2019.\T\nbsp; Referral made for shaper and presser on 11/2019.\T\nbsp;Has a scheduled appointment on 06/05/[address] De Jesus. Lelia VISIT COUNT (12 MO.) 10 [facility]. TOTAL 10 NOTE: Visits indicate total known visits. ED/UCC VISIT TRACKING (12 MO.) 10/16/2019 14:25 [facility] TYPE: Emergency COMPLAINT: - SOB 09/28/2019 20:00 [facility] TYPE: Emergency COMPLAINT: - WEAKNESS DIAGNOSES: - Chronic kidney disease, unspecified - Allergy status to narcotic agent status - Hypothyroidism, unspecified - Other termite exterminator helper (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 - Unspecified atrial fibrillation - Disorientation, unspecified - Disorientation, unspecified 06/13/2019 09:14 [facility] TYPE: Emergency COMPLAINT: - FALL DIAGNOSES: - Hypothyroidism, unspecified - Contusion of right knee, initial encounter - rat exterminator (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 - Unspecified atrial fibrillation - Pain in right knee - Allergy status to narcotic agent status - Other termite exterminator helper (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 - Unspecified fall, initial encounter 06/12/2019 11:06 [facility] TYPE: Emergency COMPLAINT: - FAAKNESS DIAGNOSES: - Weakness - Chronic kidney disease, unspecified - Allergy status to narcotic agent status - Other skilled nursing (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 - Hypothyroidism, unspecified - rat exterminator (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 - Unspecified atrial fibrillation 06/03/2019 17:00 [facility] TYPE: Emergency COMPLAINT: - WEAKNESS 05/29/2019 15:14 [facility] TYPE: Emergency COMPLAINT: - HIGH HEARTRATE DIAGNOSES: - Chronic kidney disease, unspecified - Other skilled nursing (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 - Allergy status to narcotic agent status - rat exterminator (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 - Hypothyroidism, unspecified - Unspecified atrial fibrillation 05/19/2019 06:17 [facility] TYPE: Emergency COMPLAINT: - SOB DIAGNOSES: - Unspecified atrial fibrillation - Chronic kidney disease, unspecified - rat exterminator (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 - Shortness of breath - Heart failure, unspecified - Allergy status to narcotic agent status - Hypothyroidism, unspecified - Other termite exterminator helper (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 05/09/2019 11:17 [facility] TYPE: Emergency COMPLAINT: - AFIB 05/06/2019 15:13 [facility] TYPE: Emergency COMPLAINT: - HEART PALPITATIONS DIAGNOSES: - Hypothyroidism, unspecified - Allergy status to narcotic agent status - Other termite exterminator helper (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 - Dyspnea, unspecified - Unspecified atrial fibrillation 11/29/2018 07:36 [facility] TYPE: Emergency COMPLAINT: - WEAKNESS INPATIENT VISIT TRACKING (12 MO.) 06/03/2019 19:31 [facility] TYPE: Medical Surgical COMPLAINT: - UTI DIAGNOSES: - Do not resuscitate - alf (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 - Essential (primary) [...] and top - Liver transplant status - rat exterminator (current) use of bisphosphonates - Adverse effect [...] signs of inflammatory arthritis and top - rat exterminator (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 - Anemia, unspecified - Dorsalgia, unspecified - Hyperlipidemia, unspecified - Unspecified mood [affective] disorder - Liver transplant status - Other disorders of lung - alf (current) use of bisphosphonates - Acute kidney failure, unspecified - Chronic pain syndrome - Other skilled nursing (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 - Psychophysiologic insomnia - Other disorders of lung - Other termite exterminator helper (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 - Psychophysiologic insomnia - Acute cystitis without hematuria - Do not resuscitate - Klebsiella pneumoniae [K. pneumoniae] as the cause of disease - Anemia, unspecified - Allergy status to narcotic agent status 05/09/2019 11:18 [facility] TYPE: Observation COMPLAINT: - AFIB DIAGNOSES: - Chronic respiratory failure with hypoxia - Other termite exterminator helper (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 - alf (current) use of opiate analgesic - Liver [...] place in unspecified non-institutional (private) - Other skilled nursing (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 - Unspecified fall, initial [...] coagulation profile - Scoliosis, unspecified - Other skilled nursing (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 - Adverse effect of [...] Other chronic pain - Restless legs syndrome [email or web address]
--- NOTE | 2019-10-18 13:10 | EKG ---
[facility] [address] [facility] [place] [address] Signed Atrial fibrillation with slow ventricular response Abnormal ECG When compared with ECG of 28-SEP-2019 20:38, Atrial fibrillation has replaced Sinus rhythm Nonspecific T wave abnormality no longer evident in Lateral leads Confirmed by OLIVERIO YU MD ([id number]) on 10/18/2019 1:10:41 PM Electronically Signed By: OLIVERIO YU MD 10/18/19 1310 PATIENT NAME: COLE ERNST Electrocardiogram DATE OF : 45 PHYSICIAN: OLIVERIO YU MD REPORT #: [id number] REPORT IS CONFIDENTIAL AND NOT TO BE RELEASED WITHOUT AUTHORIZATION
== END 2019-10-16 19:58 | disposition short-term general hospital (02) ==
LOC: ED 14:24
DX: N17.9 Acute kidney failure, unspecified (principal); N18.9 Chronic kidney disease, unspecified; E03.9 Hypothyroidism, unspecified; I48.91 Unspecified atrial fibrillation; Z88.5 Allergy status to narcotic agent; Z79.899 Other long term (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
CPT/HCPCS: 71045; 80053; 83735; 83880; 84484; 85025; 85610; 85730; 93005; 93010; 99285-25

== ENCOUNTER → 2019-10-31 | Emergency (ER) | payer MEDICARE, OTHER ==
[~2019-10-31] VITALS: Ht 157.5 cm; Wt 99.3 kg
[~2019-10-31] MED LIST changes: +DILTIAZEM 24HR360 MG; +HYDROXYZINE HCL10 MG PO
--- OUTSIDE RECORDS SUMMARY | 2019-10-31 13:34 | XMS ---
PreManage Notification: COLE ERNST Security Sausage Canner Events No recent Security Events currently on file CRITERIA MET - 6 ED Visits in [address] Mon[address] - [facility] - Has Care Guidelines - PDMP - [facility] - 2 Visits in 30 Days CARE PROVIDERS Name Unknown [facility] Facility Current PHONE: [phone] K[facility] DE JESUS Internal Medicine 02/06/2018-Current PHONE: [phone] Cristhian Rinaldi Photoengraving Etcher/Foundry Manager 01/17/2019-Current PHONE: [phone] Anu has no Care Guidelines for this patient. Care History Medical/Surgical 10/08/[address] [facility] - PATIENT HAS AN APT WITH DR DE JESUS ON 10/16/2019 FOR FOLLOW UP TO ED VISIT. 06/13/2019 [facility] Patient being seen for multiple falls.\T\nbsp; Patient has follow up appointment with Dr. De Jesus 06/14/2019 . 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 De Jesus. Lelia VISIT COUNT (12 MO.) 11 [facility] H. TOTAL 11 NOTE: Visits indicate total known visits. ED/UCC VISIT TRACKING (12 MO.) 10/31/2019 13:32 [facility] [place] Emergency COMPLAINT: - ITCHY ALL OVER 10/16/2019 14:[address] [facility] [facility] [place] TYPE: Emergency COMPLAINT: - SOB DIAGNOSES: - Other intermediate frame tender (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 - Chronic kidney disease, unspecified - Unspecified atrial fibrillation - Hypothyroidism, unspecified - Shortness of breath - Allergy status to narcotic agent status - Acute kidney failure, unspecified 09/28/2019 20:00 [facility] [place] TYPE: Emergency COMPLAINT: - WEAKNESS DIAGNOSES: - Chronic kidney disease, unspecified - Allergy status to narcotic agent status - Hypothyroidism, unspecified - Other alf (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 - Unspecified atrial fibrillation - Disorientation, unspecified - Disorientation, unspecified 06/13/2019 09:[address] [facility] [facility] [place] TYPE: Emergency COMPLAINT: - FALL DIAGNOSES: - Hypothyroidism, unspecified - Contusion of right knee, initial encounter - [facility] (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 - Unspecified atrial fibrillation - Pain in right knee - Allergy status to narcotic agent status - Other intermediate frame tender (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 - Unspecified fall, initial encounter 06/12/2019 11:06 [facility] [place] TYPE: Emergency COMPLAINT: - FAAKNESS DIAGNOSES: - Weakness - Chronic kidney disease, unspecified - Allergy status to narcotic agent status - Other intermediate frame tender (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 - Hypothyroidism, unspecified - [facility] (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 - Unspecified atrial fibrillation 06/03/2019 17:00 [facility] [place] TYPE: Emergency COMPLAINT: - WEAKNESS 05/29/2019 15:14 [facility] [place] TYPE: Emergency COMPLAINT: - HIGH HEARTRATE DIAGNOSES: - Chronic kidney disease, unspecified - Other alf (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 - Allergy status to narcotic agent status - terminologist (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 - Hypothyroidism, unspecified - Unspecified atrial fibrillation 05/19/2019 06:17 [facility] [place] TYPE: Emergency COMPLAINT: - SOB DIAGNOSES: - Unspecified atrial fibrillation - Chronic kidney disease, unspecified - [facility] (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 - Shortness of breath - Heart failure, unspecified - Allergy status to narcotic agent status - Hypothyroidism, unspecified - Other intermediate frame tender (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 05/09/2019 11:17 [facility] [place] TYPE: Emergency COMPLAINT: - AFIB 05/06/2019 15:13 [facility] [place] TYPE: Emergency COMPLAINT: - HEART PALPITATIONS DIAGNOSES: - Hypothyroidism, unspecified - Allergy status to narcotic agent status - Other alf (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 - Dyspnea, unspecified - Unspecified atrial fibrillation 11/29/2018 07:36 [facility] [place] TYPE: Emergency COMPLAINT: - WEAKNESS INPATIENT VISIT TRACKING (12 MO.) 10/16/2019 22:03 [facility] TYPE: Medical Surgical COMPLAINT: - ZULAY; CHF EXAC; SOB DIAGNOSES: 0. Unspecified atrial fibrillation 1. Hypertensive heart and chronic kidney disease with heart fail 2. Acute respiratory failure with hypoxia 3. Acute diastolic (congestive) heart failure 4. Acute kidney failure, unspecified 5. Hypo-osmolality and hyponatremia 6. Liver transplant status 7. Unspecified kyphosis, site unspecified 8. Repeated falls 9. Gastro-esophageal reflux disease without esophagitis 10. Gout, unspecified 11. Hypothyroidism, unspecified 12. Hyperkalemia 13. Other specified diseases of blood and blood-forming organs 14. Do not resuscitate 15. Chronic kidney disease, unspecified 16. Nephropathy induced by other drugs, medicaments and biologica 17. Paroxysmal atrial fibrillation 18. Chronic obstructive pulmonary disease, unspecified 19. History of falling 20. [facility] (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 21. Adverse effect of antineoplastic and immunosuppressive drugs, 22. Adverse effect of drugs affecting uric acid metabolism, initi 06/03/2019 19:31 [facility] [place] TYPE: Medical Surgical COMPLAINT: - UTI DIAGNOSES: - Do not resuscitate - [facility] (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 - Essential (primary) [...] and top - Liver transplant status - terminologist (current) use of bisphosphonates - Adverse effect [...] signs of inflammatory arthritis and top - [facility] (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 - Anemia, unspecified - Dorsalgia, unspecified - Hyperlipidemia, unspecified - Unspecified mood [affective] disorder - Liver transplant status - Other disorders of lung - terminologist (current) use of bisphosphonates - Acute kidney failure, unspecified - Chronic pain syndrome - Other alf (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 - Psychophysiologic insomnia - Other disorders of lung - Other intermediate frame tender (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 - Psychophysiologic insomnia - Acute cystitis without hematuria - Do not resuscitate - Klebsiella pneumoniae [K. pneumoniae] as the cause of disease - Anemia, unspecified - Allergy status to narcotic agent status 05/09/2019 11:18 [facility] [place] TYPE: Observation COMPLAINT: - AFIB DIAGNOSES: - Chronic respiratory failure with hypoxia - Other intermediate frame tender (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 - [facility] (current) use of opiate analgesic - Liver [...] place in unspecified non-institutional (private) - Other intermediate frame tender (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 - Unspecified fall, initial [...] coagulation profile - Scoliosis, unspecified - Other alf (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 - Adverse effect of [...] Other chronic pain - Restless legs syndrome [email or web address]
== END ==
LOC: ED 13:31
DX: L29.9 Pruritus, unspecified (principal); R79.1 Abnormal coagulation profile; F41.9 Anxiety disorder, unspecified; N18.9 Chronic kidney disease, unspecified; E03.9 Hypothyroidism, unspecified; I48.91 Unspecified atrial fibrillation; Z88.5 Allergy status to narcotic agent; Z79.01 Long term (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; Z79.899 Other long term (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
CPT/HCPCS: 80053; 80162; 85025; 85610; 99283; Q0177

== ENCOUNTER 2019-12-24 10:49 | Emergency (ER) | payer MEDICARE, OTHER ==
[~2019-12-24] VITALS: Ht 157.5 cm; Wt 86.2 kg
--- OUTSIDE RECORDS SUMMARY | ~2019-12-24 | XMS | Encounter Summary ---
Demographics + + + | Address | [address] | | | [place] [address] | + + + | Home Phone | | + + + | Preferred Language | Unknown | + + + | Marital Status | Unknown | + + + | Jain Affiliation | Unknown | + + + | Race | Unknown | + + + | Ethnic Group | Unknown | + + + Author + + + | Author | [facility] | + + + | Organization | [facility] | + + + | Address | Unknown | + + + | Phone | Unavailable | + + + Care Team Providers + +------+ + | Care Graduate Rn Name | Role | Phone | + +------+ + PCP | Unavailable | + +------+ + Encounter Details +--------+ + + + + | Date | Type | Department | Care Team | Description | +--------+ + + + + | 07/23/ | Documentati | Clinical | Ashlyn Albarran | | | 2020 | on | Transplant Services | MD Aric [address] | | | | | [address] | [place] [facility] [place] | | | | | [place], | [address] | | | | | [place] [address] | [phone] | | | | | [phone] | | | +--------+ + + + [...]
--- OUTSIDE RECORDS SUMMARY | ~2019-12-24 | XMS | Encounter Summary ---
Demographics + + + | Address | [address] | | | [place] [address] | + + + | Home Phone | | + + + | Preferred Language | Unknown | + + + | Marital Status | Unknown | + + + | Restorationist Affiliation | Unknown | + + + | Race | Unknown | + + + | Ethnic Group | Unknown | + + + Author + + + | Author | [facility] | + + + | Organization | [facility] | + + + | Address | Unknown | + + + | Phone | Unavailable | + + + Care Team Providers + +------+ + | Care Gate Mortiser Operator Name | Role | Phone | [...] | | | | | [place], | [place], [place] | | | | | [place] [address] | [address] | | | | | [phone] | | | +--------+ + + + [...]
--- OUTSIDE RECORDS SUMMARY | ~2019-12-24 | XMS | Encounter Summary ---
Demographics + + + | Address | [address] | | | [place] [address] | + + + | Home Phone | | + + + | Preferred Language | Unknown | + + + | Marital Status | Single | + + + | Hoahaoism Affiliation | [id number] | + + + [...] Team Providers + +------+ + | Care Injection Molding Engineer Name | Role | Phone | + +------+ + | Rick Osorio DO | PCP | | + +------+ + Reason for Referral Evaluate & Treat (Routine) +--------+ + + + + + | Status | Reason | Specialty | Diagnoses / | Referred By | Referred To | | | | | Procedures | Contact | Contact | +--------+ + + + + + | Closed | Specialty | Nephrology | Diagnoses | Joselyn | Bert | | | Services | | Chronic | DO Yaquelin | Nephrology | | | Required | | kidney | [address] | [place] | | | | | disease, | [address] | [address] | | | | | unspecified | [address] | [address] | | | | | CKD stage | [place], [place] | [address] | | | | | | [address] | [place], [place] | | | | | | Phone: | [phone] | | | | | | [phone] | Phone: | | | | | | Fax: | [phone] | | | | | | [phone] | Fax: | | | | | | | [phone] | +--------+ + + + + + Reason for Visit + + + | Reason | Comments | + + + | Follow-up | 4 week FU | + + + Evaluate & Treat (Urgent) +--------+--------+ + + + + | Status | Reason | Specialty | Diagnoses / | Referred By | Referred To | | | | | Procedures | Contact | Contact | +--------+--------+ + + + + | Closed | | Cardiology | Diagnoses | Jo, | Joselyn, | | | | | | DO Rick | DO Yaquelin | | | | | Tachycardia, | [address] | [address] | | | | | unspecified | [address] | [address] | | | | | Chronic | [address] | [place] | | | | | atrial | [place], | [address] Phone: | | | | | fibrillation | [place] | [phone] | | | | | , | [address] | Fax: | | | | | unspecified | Phone: | [phone] | | | | | ([facility]) | [phone] | | | | | | Procedures | Fax: | | | | | | Consult | [phone] | | +--------+--------+ + + + + Encounter Details +--------+---------+ + + + | Date | Type | Department | Care Team | Description | +--------+---------+ + + + | 10/24/ | Office | [facility] | Yaquelin Alves DO | Chronic kidney | | 2020 | Visit | CARDIOLOGY [place] | [address] | disease, unspecified | | | | [address] | [address] [place], [place] | CKD stage (Primary | | | | [address] | [address] | Dx); Paroxysmal | | | | [place], [place] | | atrial fibrillation | | | | [address] | | (HCC); Essential | | | | [phone] | | hypertension, | | | | | | benign; Liver | | | | | | replaced by | | | | | | transplant (HCC); | | | | | | Dyslipidemia; CKD | | | | | | (chronic kidney | | | | | | disease), stage III | | | | | | (HCC) | +--------+---------+ + + + Social History + +-------+ +--------+------+ | Tobacco Use | Types | Packs/Day | Years | Date | | | | | Used | | + +-------+ +--------+------+ | Never Smoker | | | | | + +-------+ +--------+------+ + +---+---+---+ | Smokeless Tobacco: | | | | | Never Used | | | | + +---+---+---+ + + +---------+ + | Alcohol Use [...] on file | | + + + documented as of this encounter Last Filed Vital Signs + + + + + | Vital Sign | Reading | Time Taken | Comments | + + + + + | Blood Pressure | 118/70 | 10/25/2019 1:45 PM | | | | | PDT | | + + + + + | Pulse | 85 | 10/25/2019 1:45 PM | | | | | PDT | | + + + + + | Temperature | - | - | | + + + + + | Respiratory Rate | - | - | | + + + + + | Oxygen Saturation | 100% | 10/25/2019 1:45 PM | | | | | PDT | | + + + + + | Inhaled Oxygen | - | - | | | Concentration | | | | + + + + + | Weight | 88.9 kg (196 lb) | 10/25/2019 1:45 PM | | | | | PDT | | + + + + + | Height | 160 cm (5' 3") | 10/25/2019 1:45 PM | | | | | PDT | | + + + + + | Body Mass Index | 34.72 | 10/25/2019 1:45 PM | | | | | PDT | | + + + + + documented in this encounter Progress Notes Yaquelin Alves DO - 10/25/2019 2:00 PM PDT [facility] Cardiology Cardiology Follow Up Note Reason for Consultation: tachycardia, chronic atrial fibrillation Requesting Physician: Rick Osorio History Obtained From: patient HISTORY OF PRESENT ILLNESS: Cardiac Problem List Atrial fibrillation HFpEF Non Cardiac Problem List COPD- Restrictive lung disease, oxygen dependent History of liver transplant Hypothyroidism CKD- single kidney The patient is a 73-year-old female, who presents to the Cardiology office for initial cons ultation regarding tachycardia and a history of atrial fibrillation. She has been rate cont rolled with diltiazem, digoxin, and metoprolol. She is on very large doses of diltiazem and metoprolol. She is in normal sinus rhythm today. She believes that recently, she has been feeling exhausted and thinks that it may be due to low heart rates. She typically gets ar ound in a wheelchair and has for the last year. She reports that this is mainly due to weak ness and balance issues. She was doing physical therapy, but was unable to make significant gains with them. Recently, she denies any palpitations. She does admit to some lower extr emity edema. She is oxygen dependent and has been for at least the last 2 years. She is cu rrently on anticoagulation and denies any bleeding issues. She denies any chest pains, ty rtness of breath. She denies any orthopnea or PND. Interim History I last saw the patient on 09/27/2019. At that time, I started the patient on Lasix 20 mg b y mouth daily. We repeated blood work 1 week after starting this medication, which was fair ly unremarkable. After this, patient had an ER visit after this for generalized weakness. S he was sent home. She again returned to the emergency department with shortness of breath a nd was found to be in acute renal failure. She was transferred to [facility] she was admitted on 10/16/2019. She was given IV Lasix. Nephrology was consulted. She was found to be in atrial fibrillation with RVR during the hospitalization and was restarted on digoxin 0.125 mg by mouth twice weekly. With these therapies, her renal function did im prove, but was still above her baseline. An echocardiogram was done during this hospitaliza tion, which demonstrated a normal left ventricular ejection fraction, she had indeterminate diastolic function, normal right ventricular size and function, right ventricular systolic p ressure was 36 mmHg. Overall, looking at available data, I think it is unclear exactly what caused the extent of her renal dysfunction. She may have had a component of congestive hea rt failure, but I do not believe that that in and of itself is what caused her decompensatio n. She has not followed up with her primary care physician. She has not followed up with Nephrology. Since she has been discharged, she reports that she has been feeling back to no rmal in terms of her breathing. She is still on 4L nasal cannula of oxygen, which is what s he was on prior to this admission. She reports that she has not been eating very well prima rily due to lack of appetite. She has not had any lower extremity swelling since discharge. She has not had any bleeding issues since discharge. Review of Systems Constitutional: Negative for fatigue. HENT: Negative for nosebleeds. Eyes: Negative for visual disturbance. Respiratory: Negative for cough and positive for shortness of breath. Cardiovascular: see HPI Gastrointestinal: Negative for nausea, vomiting, abdominal pain and blood in stool. Genitourinary: Negative for hematuria or dysuria. Musculoskeletal: Negative for myalgias, back pain and arthralgias. Skin: Negative for color change. Neurological: Negative for dizziness, syncope and numbness. Hematological: Does not bruise/bleed easily. Psychiatric/Behavioral: The patient is not nervous/anxious. PAST MEDICAL & SURGICAL HISTORY Past Medical History: Diagnosis Date Atrial fibrillation (HCC) Compression fracture Approx. T-6 Heart murmur Hypercholesteremia Hyperlipidemia Hypertension Hypertension Hypothyroidism Hypoxemia KG (obstructive sleep apnea) No CPAP, oxygen at 2LPM Primary biliary cirrhosis (HCC) Raynaud's syndrome Renal insufficiency Stroke (HCC) Tachycardia Unspecified hereditary and idiopathic peripheral neuropathy Past Surgical History: Procedure Laterality Date APPENDECTOMY 1965 CHOLECYSTECTOMY COLONOSCOPY 01/17/2015 Procedure: COLONOSCOPY; Surgeon: Juan Ramey MD; Location: [facility] END[facility]COPY; Service: G astroenterology; Laterality: N/A; GALLBLADDER SURGERY 1991 LIVER TRANSPLANT 1990 LIVER TRANSPLANT 192 SPLENECTOMY, TOTAL s/p splenic vein thrombosis SPLENECTOMY, TOTAL TONSILLECTOMY AND ADENOIDECTOMY 1950 MEDICATIONS Home Medications Outpatient Encounter Medications as of 10/25/2019 Medication Sig Dispense Refill alendronate (FOSAMAX) 70 mg tablet Take 70 mg by mouth every 7 days. allopurinol (ZYLOPRIM) 100 mg tablet Take 100 mg by mouth Daily. cholecalciferol (VITAMIN D-3) 25 mcg (1,000 units) tablet Take 25 mcg by mouth Daily. cyanocobalamin (VITAMIN B 12) 500 mcg tablet Take 500 mcg by mouth Daily. cycloSPORINE (SANDIMMUNE) 25 mg capsule Take 25 mg by mouth 2 times daily. digoxin (LANOXIN) 125 mcg tablet Take 125 mcg by mouth Daily. dilTIAZem (CARDIZEM CD) 180 mg 24 hr capsule Take 360 mg by mouth Daily. ferrous sulfate 325 mg tablet Take 325 mg by mouth daily (with breakfast). furosemide (LASIX) 20 mg tablet Take 1 tablet by mouth Daily. 30 tablet 11 gabapentin (NEURONTIN) 400 mg capsule Take 400 mg by mouth 2 times daily. levothyroxine (SYNTHROID) 88 mcg tablet Take by mouth every morning (before breakfast) . metoprolol succinate (TOPROL-XL) 200 mg ER tablet Take 200 mg by mouth Daily. omeprazole (PRILOSEC) 20 mg capsule Take 20 mg by mouth every morning (before breakfast ). pravastatin (PRAVACHOL) 10 mg tablet Take 10 mg by mouth nightly. traZODone (DESYREL) 100 mg tablet Take 100 mg by mouth nightly. warfarin (COUMADIN) 5 mg tablet Take 5 mg by mouth 2 times daily. No facility-administered encounter medications on file as of 10/25/2019. Allergies Allergies Allergen Reactions Codeine Nausea And Vomiting FAMILY HISTORY Family History Problem Relation Age of Onset * Mother after sugery for a bowel obstruction ADD/ADHD Father Diabetes, NIDDM Father Diabetes Father * Sister healthy Stroke Brother * Brother lung lung disease NOS Kidney disease Neg Hx SOCIAL HISTORY Social History Socioeconomic History Marital status: Single Spouse name: Not on file Number of children: Not on file Years of education: Not on file Highest education level: Not on file Occupational History Not on file Social Needs Financial resource strain: Not on file Food insecurity: Worry: Not on file Inability: Not on file Transportation needs: Medical: Not on file Non-medical: Not on file Tobacco Use Smoking status: Never Smoker Smokeless tobacco: Never Used Substance and Sexual Activity Alcohol use: Yes Alcohol/week: 5.8 standard drinks Types: 7 Standard drinks or equivalent per week Comment: Alcoholic Drinks/day: beer / night Drug use: No Comment: Drug use: No Sexual activity: Not on file Lifestyle Physical activity: Days per week: Not on file Minutes per session: Not on file Stress: Not on file Relationships Social connections: Talks on phone: Not on file Gets together: Not on file Attends quaker service: Not on file Active member of club or organization: Not on file Attends meetings of clubs or organizations: Not on file Relationship status: Not on file Intimate partner violence: Fear of current or ex partner: Not on file Emotionally abused: Not on file Physically abused: Not on file Forced sexual activity: Not on file Other Topics Concern Not on file Social History Narrative Lives by herself Single No kids 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 Appears approximately stated age . HEENT: Normocephalic, atraumatic. EYES: PERRL, sclerae anicteric, no xanthelsasmas NECK: No JVD, lymphadenopathy, thyromegaly, bruits. Carotid pulses are 2+ bilaterally LUNGS: Clear bilaterally, with no rales, rhonchi or wheezing noted, respirations unlabored HEART: Nondisplaced PMI, regular rate and rhythm, S1, S2 normal. No murmurs, rubs or gall ops noted. ABDOMEN: Soft, nontender, no organomegaly, masses or bruits. Bowel sounds are normal in a ll 4 quadrants. EXTREMITIES: No edema. Radial pulses 2+ bilaterally. DP and PT pulses are 2+ bilaterally. SKIN: Warm and dry, capillary refill is normal, no lesions. NEUROLOGIC: Awake, alert and oriented x 3. No focal motor deficits. PSYCHIATRIC: Appropriate, affect appears normal DATA Lab Results Component Value Date WBC 8.81 02/03/2015 HGB 9.6 (L) 02/03/2015 Lab Results Component Value Date INR 1.3 01/14/2015 Lab Results Component Value Date NA 136 02/03/2015 K 4.0 02/03/2015 CL 102 02/03/2015 CO2 33 (H) 02/03/2015 BUN 9 02/03/2015 MG 1.4 (L) 02/03/2015 AST 53 (H) 02/03/2015 ALT 21 02/03/2015 BNP 2,060 (H) 01/28/2015 TSH 1.71 01/28/2015 Lab Results Component Value Date TSH 1.71 01/28/2015 Recent blood work from 06/12/2019 reviewed including sodium 141, potassium 5.1, chloride 100 , carbon dioxide 28, glucose 121, BUN 82, creatinine 1.95, GFR 25, calcium 9.6, AST 14, ALT 28, alkaline phosphatase 276, total bilirubin 0.6, total protein 8.3, albumin 3.8, white blo od cell count 12.2, hemoglobin 11.7, hematocrit 36.6, MCV 101.3, platelets 219. 10/16/19 Blood work from 10/16/2019 reviewed: Sodium 127, potassium 6.0, chloride 90, carbon dioxide 28, glucose 132, BUN 91, creatinine 4.61, GFR 9, AST 25, ALT 20, alkaline phosphatase magnes ium 2.1, BNP 1580, white blood cell count 9.5, hemoglobin 11.2, hematocrit 34.1, platelets 1 89 6 EKG: Last Echo: 06/04/2019 There is mildly increased left ventricular systolic function, ejection fraction is 45% with mild global hypokinesis except for 5 dyskinesis of the apical segment, normal right ventri cular size and function, mild mitral and tricuspid regurgitation. 02/01/18 CONCLUSIONS 1. The left ventricle is normal in size, mild concentric hypertrophy and normal systolic fu nction EF 55-60%. 2. The right ventricle is normal in size and function. 3. Mild mitral regurgitation and moderately dilated left atrium. 4. There is no pericardial effusion. Last stress test: 01/18/15 IMPRESSION: 1. Normal myocardial perfusion study. 2. No evidence of pharmacologic stress induced ischemia or infarct. 3. Mild decreased wall motion of the inferior septum. 4. Left ventricular ejection fraction is calculated at 61%. Last cath: Carotid US: AAA screening: Lower extremity US: OTHERS: ASSESSMENT & PLAN 1. Atrial fibrillation 2. HFpEF 3. COPD- Restrictive lung disease, oxygen dependent 4. History of liver transplant 5. Hypothyroidism 6. CKD- single kidney -The patient is a 73-year-old female who presents to the cardiology office for follow up re garding paroxysmal atrial fibrillation. She has been rate controlled with diltiazem, metopr olol, and digoxin. She had a recent hospitalization during which she presented with acute r enal failure. She was treated for fluid overload. Echocardiogram during that admission dem onstrated normal left ventricular function with indeterminate diastolic function and unremar kable right ventricular systolic pressure. It is unclear what caused the degree of her anson l dysfunction that she had during the hospitalization. She has not yet followed up with [facility] hrology. She appears euvolemic on physical exam today. - Continue digoxin 125mcg po twice weekly- will check a digoxin level Continue diltiazem 360 mg by mouth daily Continue metoprolol succinate 200 mg by mouth daily Continue Lasix 20 mg by mouth daily Continue pravastatin 10 mg by mouth daily Continue warfarin for anticoagulation - Obtain blood work including BNP, CBC, CMP, digoxin level. Refer to [facility] nephrology - Follow up in 3 months with Jessica Barnes Thank you for allowing me to participate in the care of this patient. Primary Care Physician: DO Yaquelin Bellamy DO 10/29/2019 documented in this enco unter Plan of Treatment +--------+ + + + + | Date | Type | Specialty | Care Team | Description | +--------+ + + + + | 02/05/ | Virtual | Nephrology | Emil Oliva MD | | | 2019 | Office | | [address] [facility] | | | | Visit | | [address] [place], [place] | | | | | | [address] | | | | | | | | +--------+ + + + + | 03/20/ | Office | Cardiology | Jessica Barnes | | | 2019 | Visit | | [address] | | | | | | [address] | | | | | | [place] [address] | | | | | | [phone] | | | | | | | | +--------+ + + + + + +------+--------+ + + | Name | Type | Priori | Associated Diagnoses | Order Schedule | | | | ty | | | + +------+--------+ + + | Digoxin Level | Lab | Routin | Chronic kidney | 1 Occurrences | | | | e | disease, unspecified | starting 10/25/2019 | | | | | CKD stage | until 10/24/2020 | + +------+--------+ + + | Comprehensive | Lab | Routin | Chronic kidney | 1 Occurrences | | Metabolic Panel | | e | disease, unspecified | starting 10/25/2019 | | | | | CKD stage | until 10/24/2020 | + +------+--------+ + + | B Type Natriuretic | Lab | Routin | Chronic kidney | 1 Occurrences | | Peptide | | e | disease, unspecified | starting 10/25/2019 | | | | | CKD stage | until 10/24/2020 | + +------+--------+ + + | CBC no Differential | Lab | Routin | Chronic kidney | 1 Occurrences | | | | e | disease, unspecified | starting 10/25/2019 | | | | | CKD stage | until 10/24/2020 | + +------+--------+ + + + + +--------+ + + | Name | Type | Priori | Associated Diagnoses | Order Schedule | | | | ty | | | + + +--------+ + + | Ambulatory Referral | Outpatient | Routin | Chronic kidney | Ordered: 10/25/2019 | | to [facility] Nephrology | Referral | e | disease, unspecified | | | (Multi-Location) | | | CKD stage | | + + +--------+ + + documented as of this encounter Visit Diagnoses + + | Diagnosis | + + | Chronic kidney disease, unspecified CKD stage - Primary | + + | Paroxysmal atrial fibrillation (HCC) Atrial fibrillation | + + | Essential hypertension, benign | + + | Liver replaced by transplant (HCC) Liver replaced by transplant | + + | Dyslipidemia Other and unspecified hyperlipidemia | + + | CKD (chronic kidney disease), stage III (HCC) Chronic kidney disease, Stage III | | (moderate) | + + documented in this encounter
--- OUTSIDE RECORDS SUMMARY | ~2019-12-24 | XMS | Encounter Summary ---
Demographics + + + | Address | [address] | | | [place] [address] | + + + | Home Phone | | + + + | Preferred Language | Unknown | + + + | Marital Status | Unknown | + + + | Mandaeism Affiliation | Unknown | + + + | Race | Unknown | + + + | Ethnic Group | Unknown | + + + Author + + + | Author | [facility] | + + + | Organization | [facility] | + + + | Address | Unknown | + + + | Phone | Unavailable | + + + Care Team Providers + +------+ + | Care Oven Tender Name | Role | Phone | + [...] | | | | | [place], | [place], [place] | | | | | [place] [address] | [address] | | | | | [phone] | | | +--------+ + + + [...]
--- OUTSIDE RECORDS SUMMARY | ~2019-12-24 | XMS | Encounter Summary ---
Demographics + + + | Address | [address] | | | [place] [address] | + + + | Home Phone | | + + + | Preferred Language | Unknown | + + + | Marital Status | Single | + + + | Episcopalian Affiliation | 1041 | + + + | Race | Unknown | + + + | Ethnic Group | Unknown | + + + Author + + + | Author | [facility] | | | and [place] | + + + | Organization | [facility] | | [...] Team Providers + +------+ + | Care Riverboat Master Name | Role | Phone | + [...] + + | 03/26/ | Office | [facility] [place] | Gary Melendez, | Hypoxemia (Primary | | 2013 | Visit | PULMONARY [address] | MD [address] | Dx); Kyphosis | | | | [place], | [place], [place] | deformity of spine; | | | | [place] [address] | [address] | Restrictive lung | | | | [phone] | | disease | +--------+---------+ + + [...] the original. Pulmonary Clinic Follow Up 03/26/2014 HEATHER Odonnellmaddie Petty is a 68 y.o. female patient [...] spray, 1 spray by Nasal route Linda velasquez., Disp: , Rfl: ; furosemide (LASIX) 20 [...] documented in this encounter Plan of Treatment +--------+ + + + + | Date | Type | Specialty | Care Team | Description | +--------+ + + + + | 02/05/ | Virtual | Nephrology | Emil Oliva MD | | | 2019 | Office | | [address] [address] [place] | | | | Visit | | [address] [place] | | | | | | [address] | | | | | | | | +--------+ + + + + | 03/20/ | Office | Cardiology | Jessica Barnes | | | 2019 | Visit | | [address] | | | | | | [address] | | | | | | [place] [address] | | | | | | [phone] | | | | | | | | +--------+ + + + + + + +--------+ + [...] + | MISCELLANEOUS LAB | | | [phone] | + +---------+ + + | MISCELANIOUS LAB | | | [phone] | + +---------+ + + documented in this encounter Visit Diagnoses + + | Diagnosis | + + | Hypoxemia - Primary | + + | 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
--- OUTSIDE RECORDS SUMMARY | ~2019-12-24 | XMS | Encounter Summary ---
Demographics + + + | Address | [address] | | | [place] [address] | + + + | Home Phone | | + + + | Preferred Language | Unknown | + + + | Marital Status | Unknown | + + + | Nondenominational Affiliation | Unknown | + + + | Race | Unknown | + + + | Ethnic Group | Unknown | + + + Author + + + | Author | [facility] | + + + | Organization | [facility] | + + + | Address | Unknown | + + + | Phone | Unavailable | + + + Care Team Providers + +------+ + | Care Plastic Cutter Name | Role | Phone | + [...] | | | | | [place], | [place], [place] | | | | | [place] [address] | [address] | | | | | [phone] | | | +--------+ + + + [...]
--- OUTSIDE RECORDS SUMMARY | ~2019-12-24 | XMS | Encounter Summary ---
Demographics + + + | Address | [address] | | | [place] [address] | + + + | Home Phone | | + + + | Preferred Language | Unknown | + + + | Marital Status | Single | + + + | Mandaen Affiliation | [id number] | + + + [...] Providers + +------+ + | Care Senior Escrow Officer Name | Role | Phone | + +------+ + | Yovani Santana MD | PCP | | + +------+ + Reason for Visit + + + | Reason | Comments | + + + | Establish Care | | + + + Evaluate & Treat (Routine) +--------+--------+ + + + + | Status | Reason | Specialty | Diagnoses / | Referred By | Referred To | | | | | Procedures | Contact | Contact | +--------+--------+ + + + + | Closed | | Pulmonology | Diagnoses | Max, | Al | | | | | EARNEST Pina | MD Gary | | | | | Procedures | MD Bhargav | [address] | | | | | NEW PATIENT | [address] | [place], | | | | | CONSULT | [facility] | [place] [address] | | | | | | [place], [place] | Phone: | | | | | | [address] | [phone] | | | | | | Phone: | Fax: | | | | | | [phone] | [phone] | | | | | | Fax: | | | | | | | [phone] | | +--------+--------+ + + + + Encounter Details +--------+---------+ + + + | Date | Type | Department | Care Team | Description | +--------+---------+ + + + | 03/04/ | Office | [facility] [place] | Gary Melendez, | Earnest (Primary | | 2013 | Visit | PULMONARY [address] | MD [address] | Dx); Kyphosis | | | | [place], | [place], [place] | deformity of spine | | | | [place] [address] | [address] | | | | | [phone] | | | +--------+---------+ + + + Social History [...] + + + | Blood Pressure | 144/84 | 03/04/2014 2:55 PM | | | | | PDT | | + + + + + | Pulse | 60 | 03/04/2014 2:55 PM | | | | | PDT | | + + + + + | Temperature | 36.4 C (97.6 F) | 03/04/2014 2:55 PM | | | | | PDT | | + + + + + | Respiratory Rate | - | - | | + + + + + | Oxygen Saturation | 97% | 03/04/2014 2:55 PM | On 3LPM | | | | PDT | | + + + + + | Inhaled Oxygen | - | - | | | Concentration | | | | + + + + + | Weight | 96.5 kg (212 lb 12.8 | 03/04/2014 2:55 PM | | | | oz) | PDT | | + + + + + | Height | 160 cm (5' 3") | 03/04/2014 2:55 PM | | | | | PDT | | + + + + + | Body Mass Index | 37.7 | 03/04/2014 2:55 PM | | | | | PDT | | + + + + + documented in this encounter Progress Notes Gary Melendez MD - 03/04/2014 3:21 PM PDTFormatting of this note might be different f rom the original. Pulmonary Consult Note 03/04/2014 HPI Opal Petty is a 68 y.o. female patient of Yovani Santana M.D. here today for ev aluation of hypoxemia. She first noted troubles with low supplemental oxygen to 4 years ago. No treatment was ini tiated initially. Patient states that she had a polysomnogram performed about the same time and CPAP was not started but she was placed on supplemental oxygen at 2 L per minute at [facility] while she slept. Over last 3 or so years Opal developed dyspnea on exertion. She began using supplement al oxygen during the day. Approximately month ago the patient developed worsening exertional shortness of breath and was subsequently treated with furosemide. This resulted in marked improvement of her sympto ms and lessening of lower extremity edema. Otherwise Opal denies therapy for shortness of breath/hypoxemia. They are able to walk "short block" at their own pace on supplemental O2 level ground befor e developing shortness of breath. The distance walked is predominately limited by dyspnea. O ne year ago, they feel that they could walk full block. Triggers for their shortness of wilma ath include exertion. Relieving factors include rest. They do not exercise regularly. They are not enrolled in cardiac/pulmonary rehabilitation o r other physical therapy. They have not completed pulmonary rehabilitation in the past. She does not cough chronically, and does not produce mucous. They have not had hemoptysis in the last 6 months. Treatments that they have been used to this point include -none. They have not had to be hospitalized for breathing issues in the past. Opal has not re quired intubation in the past. They have not had to go to the emergency room in the last yea r related to a breathing problem. They have had 0 exacerbations in the past year requiring t reatment with prednisone and 0 treatments with antibiotics. Opal has been evaluated for nocturnal oxygen and does qualify for use. They are curren tly on 2 LPM at night. They report good compliance. They have been evaluated for daytime oxy gen and do use it. They are currently on 2 LPM at rest and 3 LPM (pulse) with exertion. Past Medical History: Past Medical History Diagnosis Date Unspecified hereditary and idiopathic peripheral neuropathy (HCC) Renal insufficiency Hypoxemia (HCC) Hypothyroidism Hypercholesteremia Hypertension Raynaud's syndrome Compression fracture Approx. T-6 Primary biliary cirrhosis (HCC) KG (obstructive sleep apnea) No CPAP, oxygen at 2LPM Past Surgical History: Past Surgical History Procedure Date Liver transplant 1990 Appendectomy 1965 Tonsillectomy and adenoidectomy 1949 Cholecystectomy Splenectomy, total s/p splenic vein thrombosis Family History: Family History Problem Relation Age of Onset * Mother after sugery for a bowel obstruction ADD/ADHD Father Diabetes, NIDDM Father * Sister healthy Stroke Brother * Brother lung lung disease NOS Social History: She reports that she has never smoked. She does not have any smokeless tobacco history on . She reports that she drinks about 3.5 ounces of alcohol per week. She reports that she does not use illicit drugs. Allergies: Allergies Allergen Reactions Codeine Nausea And [...] by mouth nightly., Disp: , Rfl: Immunizations: There is no immunization history on file for this patient. Review of Systems Constitutional: Denies fever, chills, sweats, fatigue/weakness, and unexpected weight ling ge. Sleep: Denies trouble sleeping, loud snoring, and excessive daytime sleepiness. Eyes: Denies vision change, and eye irritation. ENT: Denies earache, tinnitus, decreased hearing, nasal congestion, nosebleeds, sore throa t, and hoarseness. Resp: Denies hemoptysis or pleuritic chest pain. CV: Denies neck/chest/jaw pain with exertion, palpitations, lightheadedness, syncope, orth opnea, PND, peripheral edema, and claudication. GI: Denies trouble swallowing, heartburn, nausea, vomiting, abdominal pain, diarrhea,melen a, and hematochezia. Denies dysuria, hematuria, urinary frequency, difficulty emptying bladder, nocturia. Musculoskeletal: Denies joint pain/stiffness, joint swelling, muscle pain/cramps, muscle we akness. Derm: Denies rash, itching, dryness, and suspicious lesions. Neurologic: Denies frequent headaches, seizures, tremors, numbness or tingling in hands or feet, vertigo or difficulty walking in past 6 months. Psych Denies depression, anxiety, suicidal ideation. Endo Denies cold intolerance or heat intolerance. Heme Denies abnormal bruising, bleeding, and enlarged lymph nodes. Allergy Denies urticaria, allergic rash, hay fever Objective BP 144/84 | Pulse 60 | Temp 36.4 C (97.6 F) (Tympanic) | Ht 1.6 m (5' 3") | Wt 96.525 k g (212 lb 12.8 oz) | BMI 37.71 kg/m2 | SpO2 97% General Appearance: Alert, cooperative, no distress, appears stated age. Head: Normocephalic, without obvious abnormality, atraumatic. Eyes: PERRL, conjunctiva/corneas clear. Ears: Normal external appearance, TM's not examined. Nose: Nares normal, septum midline, mucosa normal, no drainage or sinus tenderness. Throat: Lips, mucosa, and tongue normal; teeth and gums normal. MP 3. Neck: Supple, symmetrical, no adenopathy. Lungs: No accessory muscle use, breath sounds are reduced to auscultation bilaterally, no wheezes, crackles or rhonchi. No dullness to percussion. Chest [place]: No tenderness. The patient has rather dramatic lordosis/kyphosis. Heart: Regular rate and rhythm, S1 normal, S2 is accentuated, no murmur, rub or gallop Abdomen: Soft, non-tender. No hepatosplenomegaly. Extremities: Extremities normal, atraumatic, no cyanosis, clubbing. Edema trace to the mid calf bilaterally Pulses: Radial pulses 2+ and symmetric Skin: Warm and dry Lymph nodes: Cervical and supraclavicular nodes normal Neurologic: patient walks with a cane Data: Chest x-ray(s) from 01/25/14 were reviewed today with the patient present. They show patient has an elevated right hemidiaphragm, cardiomegaly, increased AP diameter with lordosis promi nent vascular markings and an apparent enlarged pulmonary artery. Yovani Bhargav Santana's notes were reviewed in clinic today. Assessment Opal Petty is a 68-year-old nonsmoker who is referred by Yovani Santana M.D. for pulmona ry consultation regarding hypoxemia. The patient's past medical history is significant for liver transplantation for primary rafael iary cirrhosis. Over last 3-4 years Opal is had hypoxemia and associated dyspnea on exe rtion. The patient wears supplemental oxygen at 2 L per minute at rest/sleeping at 3 L per minute with exertion. Other potential contributing factors include possible obstructive sleep apnea, vertebral co mpression fractures with significant lordosis/kyphosis. The patient's physical exam 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 a loud S2 potentially consistent with pulmonary hypertension. Her chest x-ray shows an elevated right hemidiaphragm suggesting the possibil ity of right-sided diaphragmatic paralysis. Etiology of this patient's hypoxemia is not immediately evident and is potentially multifac torial. Her kyphosis is likely contributing to significant restrictive changes. 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 There is a component of obesity further affecting restrictive changes. Other findings inc lude the possibility of pulmonary hypertension and cardiomegaly potentially consistent with myocardial dysfunction. The patient is apparently had a prior echocardiogram. I would like to review this study. Opal is in need of pulmonary function tests to further quantitate the extent of her res trictive changes. Based on these changes we will decide if fluoroscopy of the diaphragm rigoberto l be pursued. Her echocardiogram we'll clarify the issues of pulmonary hypertension and left ventricular function. Plan 1. Spirometry, lung volumes and diffusion capacity. 2. No change the patient's supplemental oxygen at this time. 3. Exertional oximetry on supplemental oxygen. 4. A copy of the patient's echocardiogram from [facility] will be reviewed. CC: Yovani Santana documented in this encounter Miscellaneous Notes Miscellaneous - JV SANTOSVA - 03/04/2014 12:00 AM PDT documented in this encounter Plan of Treatment +--------+ + + + + | Date | Type | Specialty | Care Team | Description | +--------+ + + + + | 02/05/ | Virtual | Nephrology | Emil Oliva MD | | | 2019 | Office | | [address] [place] | | | | Visit | | [address] [place] | | | | | | [address] | | | | | | | | +--------+ + + + + | 03/20/ | Office | Cardiology | Jessica Barnes | | | 2019 | Visit | | [address] | | | | | | [address] | | | | | | [place] [address] | | | | | | [phone] | | | | | | | | +--------+ + + + + documented as of this encounter Results PFT PULMONARY FUNCTION TESTING ORDERS Full PFT ([employer] w/BD, lung volumes, diffusion)?: Yes; Rest and [...] Melendez MD 03/27/2014 13:24 | | | [facility] | | + + + + + [...] 03/26/14Electronically signed by: Gary Melendez MD 03/27/2014 13:24[facility] | [facility] | | | |No prior pulmonary function tests available for comparison. 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
--- OUTSIDE RECORDS SUMMARY | ~2019-12-24 | XMS | Clinical Summary ---
Demographics + + + | Address | [address] | | | [place] [address] | + + + | Home Phone | | + + + | Preferred Language | Unknown | + + + | Marital Status | Single | + + + | Christian Affiliation | [phone] | + + + [...] Team Providers + +------+ + | Care Clinical Evaluator Name | Role | Phone | + [...] | | + + + +---------+------+------+-------+ | gabapentin | Take 400 mg by mouth | | 0 | | | Activ | | (NEURONTIN) 400 mg | 2 times daily. | | | | | e | | capsule | | | | | | | + + + +---------+------+------+-------+ | cycloSPORINE | Take 25 mg by mouth | | 0 | | | Activ | | (SANDIMMUNE) 25 mg | 2 times daily. | | | | | e | | capsule | | | | | | | + + + +---------+------+------+-------+ | levothyroxine | Take by mouth every | | 0 | | | Activ | | (SYNTHROID) 88 mcg | morning (before | | | | | e | | tablet | breakfast). | | | | | | + + + +---------+------+------+-------+ | pravastatin | Take 10 mg by mouth | | 0 | | | Activ | | (PRAVACHOL) 10 mg | nightly. | | | | | e | | tablet | | | | | | | + + + +---------+------+------+-------+ | ferrous sulfate | Take 325 mg by mouth | | 0 | | | Activ | | 325 mg tablet | daily (with | | | | | e | | | breakfast). | | | | | | + + + +---------+------+------+-------+ | cyanocobalamin | Take 500 mcg by | | 0 | | | Activ | | (VITAMIN B 12) 500 | mouth Daily. | | | | | e | | mcg tablet | | | | | | | + + + +---------+------+------+-------+ | traZODone | Take 100 mg by mouth | | 0 | | | Activ | | (DESYREL) 100 mg | nightly. | | | | | e | | tablet | | | | | | | + + + +---------+------+------+-------+ | cholecalciferol | Take 25 mcg by mouth | | 0 | | | Activ | | (VITAMIN D-3) 25 mcg | Daily. | | | | | e | | (1,000 units) | | | | | | | | tablet | | | | | | | + + + +---------+------+------+-------+ | omeprazole | Take 20 mg by mouth | | 0 | | | Activ | | (PRILOSEC) 20 mg | every morning | | | | | e | | capsule | (before breakfast). | | | | | | + + + +---------+------+------+-------+ | warfarin | Take 2.5 mg by mouth | | 0 | | | Activ | | (COUMADIN) 5 mg | 2 times daily . | | | | | e | | tablet | | | | | | | + + + +---------+------+------+-------+ | alendronate | Take 70 mg by mouth | | 0 | | | Activ | | (FOSAMAX) 70 mg | every 7 days. | | | | | e | | tablet | | | | | | | + + + +---------+------+------+-------+ | allopurinol | Take 100 mg by mouth | | 0 | | | Activ | | (ZYLOPRIM) 100 mg | Daily. | | | | | e | | tablet | | | | | | | + + + +---------+------+------+-------+ | metoprolol | Take 200 mg by mouth | | 0 | | | Activ | | succinate | Daily. | | | | | e | | (TOPROL-XL) 200 mg | | | | | | | | ER tablet | | | | | | | + + + +---------+------+------+-------+ | dilTIAZem | Take 180 mg by mouth | | 0 | | | Activ | | (CARDIZEM CD) 180 mg | Daily . | | | | | e | | 24 hr capsule | | | | | | | + + + +---------+------+------+-------+ | furosemide (LASIX) | Take 1 tablet by | 30 | 11 | 05/0 | 05/0 | Activ | | 20 mg tablet | mouth Daily. | tablet | | 12/09 | 12/09 | e | | | | | | 20 | 21 | | + + + +---------+------+------+-------+ +---+ + | | Additional | | | InformationPatient | | | not taking. Reported | | | on 11/29/2019 11:31 | | | AM | +---+ + + + +---+---+---+---+-------+ | digoxin (LANOXIN) | Take 125 mcg by | | 0 | | | Activ | | 125 mcg tablet | mouth Twice a week. | | | | | e | + + +---+---+---+---+-------+ Active Problems + + + | Problem | Noted Date | + + + | ZULAY (acute kidney injury) | 11/29/2019 | + + + | ATN (acute tubular necrosis) | 11/29/2019 | + + + | Paroxysmal atrial fibrillation | 09/30/2019 | + + + | Immunosuppression | 01/14/2015 | + + + | Restrictive lung disease | 03/26/2014 | + + + | Kyphosis deformity of spine | 03/04/2014 | + + + | Hypoxemia | 02/20/2014 | + + + | CKD (chronic kidney disease), stage III | 06/11/2013 | + + + | Dyslipidemia | 04/23/2013 | + + + | Essential hypertension, benign | 04/23/2013 | + + + | Hypothyroidism | 04/23/2013 | + + + | Liver replaced by transplant | 04/23/2013 | + + + | Osteoarthrosis | 04/23/2013 | + + + | Persistent proteinuria | 04/23/2013 | + + + | Vitamin D deficiency | 04/23/2013 | + + + Encounters +--------+ + + + + | Date | Type | Specialty | Care Team | Description | +--------+ + + + + | 11/28/ | Virtual | Nephrology | Emil Oliva MD | Essential | | 2020 | Office | | | hypertension, benign | | | Visit | | | (Primary Dx); ZULAY | | | | | | (acute kidney | | | | | | injury) (HCC); ATN | | | | | | (acute tubular | | | | | | necrosis) ([facility]); | | | | | | Immunosuppression | | | | | | ([facility]); Persistent | | | | | | proteinuria; Vitamin | | | | | | D deficiency | +--------+ + + + + | 11/28/ | Orders Only | Nephrology | Emil Oliva MD | Persistent | | 2020 | | | | proteinuria (Primary | | | | | | Dx); CKD (chronic | | | | | | kidney disease), | | | | | | stage III ([facility]); ZULAY | | | | | | (acute kidney | | | | | | injury) ([facility]) | +--------+ + + + + | 11/28/ | Telephone | Nephrology | Kavya Schwab | Other (Request for | | 2019 | | | A, Medical | Medical Records) | | | | | Undercover Operator | | +--------+ + + + + | 11/27/ | Documentati | Nephrology | Batsheva Bellamy, | Results | | 2019 | on | | Calliope Player | (interpath-11/24/2019) | +--------+ + + + + | 11/20/ | Documentati | Nephrology | Batsheva Bellamy, | Other (abstracting | | 2019 | on | | Calliope Player | referral ) | +--------+ + + + + | 11/06/ | Orders Only | Nephrology | Emil Oliva MD | Essential | | 2020 | | | | hypertension, benign | | | | | | (Primary Dx); CKD | | | | | | (chronic kidney | | | | | | disease), stage III | | | | | | ([facility]); Proteinuria, | | | | | | unspecified type | +--------+ + + + + | 10/24/ | Office | Cardiology | Yaquelin Alves DO | Chronic kidney | | 2020 | Visit | | | disease, unspecified | | | | | | CKD stage (Primary | | | | | | Dx); Paroxysmal | | | | | | atrial fibrillation | | | | | | ([facility]); Essential | | | | | | hypertension, | | | | | | benign; Liver | | | | | | replaced by | | | | | | transplant ([facility]); | | | | | | Dyslipidemia; CKD | | | | | | (chronic kidney | | | | | | disease), stage III | | | | | | ([facility]) | +--------+ + + + + | 09/26/ | Office | Cardiology | Yaquelin Alves DO | Tachycardia (Primary | | 2020 | Visit | | | Dx); Edema, | | | | | | unspecified type; | | | | | | Paroxysmal atrial | | | | | | fibrillation (HCC) | +--------+ + + + + from Last 3 Months Immunizations + + + + | Name [...] + + + + Plan of Treatment +--------+ + + + + | Date | Type | Specialty | Care Team | Description | +--------+ + + + + | 02/05/ | Virtual | Nephrology | Emil Oliva MD | | | 2019 | Office | | [address] | | | | Visit | | [address] [place] | | | | | | [address] | | | | | | | | +--------+ + + + + | 03/20/ | Office | Cardiology | Jessica Barnes | | 2019 | Visit | | [address] | | | | [address] | | | | | | [place] [address] | | | | | | [phone] | | | | | | | | +--------+ + + + + + + + + + | Health Maintenance | Due Date | Last | Comments | | | | Done | | + + + + + | Hepatitis C | | | | | Screening | 6 | | | + + + + + | Med Mgmt: | | | | | Cyclosporine | 6 | | | + + + + + | Med Mgmt: INR | | | | | | 6 | | | + + + + + | Medication | | | | | Management | 6 | | | + + [...] | + + + + + | Med Mgmt: Mg | | 02/04/20 | | | | 6 | 15, | | | | | 02/03/20 | | | | | 15, | | | | | 02/03/20 | | | | | 15, | | | | | Addition | | | | | al | | | | | history | | | | | exists | | + + + + + | Adult Annual | | | | | Wellness Visit | 0 | | | + + + + + | Statin Therapy | | | | | (optimal intensity) | 0 | | | + + + + + | Vaccine: Influenza | | 02/13/20 | | | (#1) | 0 | 14 | | + + + + + | Med Mgmt: ECG | | 09/27/19 | | | | 1 | 20, | | | | | 01/16/20 | | | | | 15, | | | | | 01/15/20 | | | | | 15 | | + + + + + | Med Mgmt: ALT | | 11/24/19 | | | | 1 | 20, | | | | | 10/31/19 | | | | | 20, | | | | | 02/04/20 | | | | | 15, | | | | | Addition | | | | | al | | | | | history | | | | | exists | | + + + + + | Med Mgmt: AST | | 11/24/19 | | | | 1 | 20, | | | | | 10/31/19 | | | | | 20, | | | | | 02/04/20 | | | | | 15, | | | | | Addition | | | | | al | | | | | history | | | | | exists | | + + + + + | Med Mgmt: BUN | | 11/24/19 | | | | 1 | 20, | | | | | 10/31/19 | | | | | 20, | | | | | 10/24/19 | | | | | 20, | | | | | Addition | | | | | al | | | | | history | | | | | exists | | + + + + + | Med Mgmt: Ca | | 11/24/19 | | | | 1 | 20, | | | | | 10/31/19 | | | | | 20, | | | | | 02/04/20 | | | | | 15, | | | | | Addition | | | | | al | | | | | history | | | | | exists | | + + + + + | Med Mgmt: Cr | | 11/24/19 | | | | 1 | 20, | | | | | 10/31/19 | | | | | 20, | | | | | 10/24/19 | | | | | 20, | | | | | Addition | | | | | al | | | | | history | | | | | exists | | + + + + + | Med Mgmt: Glucose | | 11/24/19 | | | | 1 | 20, | | | | | 10/31/19 | | | | | 20, | | | | | 10/24/19 | | | | | 20, | | | | | Addition | | | | | al | | | | | history | | | | | exists | | + + + + + | Med Mgmt: HCT | | 11/24/19 | | | | 1 | 20, | | | | | 10/31/19 | | | | | 20, | | | | | 02/04/20 | | | | | 15, | | | | | Addition | | | | | al | | | | | history | | | | | exists | | + + + + + | Med Mgmt: HGB | | 11/24/19 | | | | 1 | 20, | | | | | 10/31/19 | | | | | 20, | | | | | 02/04/20 | | | | | 15, | | | | | Addition | | | | | al | | | | | history | | | | | exists | | + + + + + | Med Mgmt: K | | 11/24/19 | | | | 1 | 20, | | | | | 10/31/19 | | | | | 20, | | | | | 10/24/19 | | | | | 20, | | | | | Addition | | | | | al | | | | | history | | | | | exists | | + + + + + | Med Mgmt: Na | | 11/24/19 | | | | 1 | 20, | | | | | 10/31/19 | | | | | 20, | | | | | 10/24/19 | | | | | 20, | | | | | Addition | | | | | al | | | | | history | | | | | exists | | + + + + + | Med Mgmt: PLT | | 11/24/19 | | | | 1 | 20, | | | | | 10/31/19 | | | | | 20, | | | | | 02/04/20 | | | | | 15, | | | | | Addition | | | | | al | | | | | history | | | | | exists | | + + + + + | Med Mgmt: TSH | | 11/24/19 | | | | 1 | 20, | | | | | 01/29/20 | | | | | 15, | | | | | 01/17/20 | | | | | 15, | | | | | Addition | | | | | al | | | | | history | | | | | exists | | + + + + + | Med Mgmt: Uric Acid | | 11/24/19 | | | | 1 | 20, | | | | | 08/25/20 | | | | | 15, | | | | | 11/16/19 | | | | | 15, | | | | | Addition | | | | | al | | | | | history | | | | | exists | | + + + + + | Med Mgmt: Vit D | | 11/24/19 | | | | 1 | 20, | | | | | 11/16/19 | | | | | 15, | | | | | 12/06/19 | | | | | 14 | | + + + + + | Med Mgmt: WBC | | 11/24/19 | | | | 1 | 20, | | | | | 10/31/19 | | | | | 20, | | | | | 02/04/20 | | | | | 15, | | | | | Addition | | | | | al | | | | | history | | | | | exists | | + + + + + | Med Mgmt: eGFR | | 11/24/19 | | | | 1 | 20, | | | | | 10/31/19 | | | | | 20, | | | | | 10/24/19 | | | | | 20, | | | | | Addition | | | | | al | | | | | history | | | | | exists | | + + + + + | Colorectal Cancer | | 01/18/20 | | | Screening | 5 | 15 | | | (Colonoscopy) | | | | + + + + + | Vaccine: | Completed | 01/30/20 | | | Pneumococcal 65+ | | 15 | | + + + + + Procedures + +--------+ + + + | Procedure Name | Priori | Date/Time | Associated Diagnosis | Comments | | | ty | | | | + +--------+ + + + | LABS - EXTERNAL SCAN | | 11/28/2019 | | Results for this | | | | 12:00 AM | | procedure are in the | | | | PDT | | results section. | + +--------+ + + + | LABS - EXTERNAL SCAN | | 11/24/2019 | | Results for this | | | | 12:00 AM | | procedure are in the | | | | PDT | | results section. | + +--------+ + + + | CBC WITH | Routin | 11/24/2019 | | Results for this | | DIFFERENTIAL | e | | | procedure are in the | | | | | | results section. | + +--------+ + + + | VITAMIN D, | Routin | 11/24/2019 | | Results for this | | DEFICIENCY SCREEN | e | | | procedure are in the | | (25-HYDROXY) | | | | results section. | + +--------+ + + + | TSH | Routin | 11/24/2019 | | Results for this | | | e | | | procedure are in the | | | | | | results section. | + +--------+ + + + | VITAMIN B-12 | Routin | 11/24/2019 | | Results for this | | | e | | | procedure are in the | | | | | | results section. | + +--------+ + + + | COMPREHENSIVE | Routin | 11/24/2019 | | Results for this | | METABOLIC PANEL | e | | | procedure are in the | | | | | | results section. | + +--------+ + + + | URIC ACID | Routin | 11/24/2019 | | Results for this | | | e | | | procedure are in the | | | | | | results section. | + +--------+ + + + | CBC WITH | Routin | 10/31/2019 | | Results for this | | DIFFERENTIAL | e | | | procedure are in the | | | | | | results section. | + +--------+ + + + | COMPREHENSIVE | Routin | 10/31/2019 | | Results for this | | METABOLIC PANEL | e | | | procedure are in the | | | | | | results section. | + +--------+ + + + | RENAL FUNCTION PANEL | Routin | 10/24/2019 | | Results for this | | | e | | | procedure are in the | | | | | | results section. | + +--------+ + + + | ECG 12 LEAD | Routin | 09/27/2019 | Tachycardia | Results for this | | | e | 3:15 PM | | procedure are in the | | | | PDT | | results section. | + +--------+ + + + from Last 3 Months Results LABS - EXTERNAL SCAN (11/28/2019 12:00 AM PDT)Only the most recent of 2 results within the time period is included. + + + | Narrative | Performed At | + + + | Ordered by an | | | unspecified provider. | | + + + Vitamin B-12 (11/24/2019) + + + + + + | Component | Value | Ref Range | Performed | Pathologist | | | | | At | Signature | + + + + + + | VITAMIN | 2,000 (A) | 232 - 1,245 | | | | B-12 | | pg/mL | | | + + + + + + + + | Specimen | + + | Blood | + + Vitamin D, Deficiency Screen (25-Hydroxy) (11/24/2019) + +-------+ + + + | Component | Value | Ref Range | Performed | Pathologist | | | | | At | Signature | + +-------+ + + + | Vit D, | 54 | 30 - 100 | | | | 25-Hydroxy | | | | | + +-------+ + + + + + | Specimen | + + | Blood | + + CBC with Differential (11/24/2019)Only the most recent of 2 results within the time period is included. + + + + + + | Component | Value | Ref Range | Performed | Pathologist | | | | | At | Signature | + + + + + + | WBC | 8.6 | 4.5 - 11.0 | | | | | | 10*3/uL | | | + + + + + + | Red Blood | 3.76 (A) | 3.8 - 5.1 | | | | Cells | | | | | + + + + + + | Hemoglobin | 12.5 | 12.0 - 16.0 | | | | | | g/dL | | | + + + + + + | Hematocrit | 39.3 | 35.0 - 45.0 % | | | + + + + + + | MCV | 104.5 (A) | 81.0 - 99.0 fL | | | + + + + + + | MCH | 33 | 27 - 33 | | | + + + + + + | MCHC | 32.0 | 30.0 - 36.0 | | | | | | g/dL | | | + + + + + + | RDW | 14.7 | 10.5 - 15 | | | + + + + + + | Platelet | 194 | 140 - 440 K/uL | | | | Count | | | | | + + + + + + + + | Specimen | + + | Blood | + + Uric Acid (11/24/2019) + +-------+ + + + | Component | Value | Ref Range | Performed | Pathologist | | | | | At | Signature | + +-------+ + + + | Uric Acid | 9.6 | 2.3 - 6.6. | | | + +-------+ + + + + + | Specimen | + + | Blood | + + TSH (11/24/2019) + +-------+ + + + | Component | Value | Ref Range | Performed | Pathologist | | | | | At | Signature | + +-------+ + + + | TSH | 2.30 | 0.27 - 4.20 | | | | | | uIU/mL | | | + +-------+ + + + + + | Specimen | + + | Blood | + + Comprehensive Metabolic Panel (11/24/2019)Only the most recent of 2 results within the time period is included. + + + + + + | Component | Value | Ref Range | Performed | Pathologist | | | | | At | Signature | + + + + + + | Na | 138 | 132 - 143 | | | | | | mmol/L | | | + + + + + + | K | 4.2 | 3.2 - 5.7 | | | | | | mmol/L | | | + + + + + + | Cl | 92 (A) | 95 - 112 mmol/L | | | + + + + + + | CO2 | 37 (A) | 19 - 31 mmol/L | | | + + + + + + | Anion Gap | 13 | 7 - 21 mmol/L | | | + + + + + + | Glucose | 68 (A) | 70 - 100 mg/dL | | | + + + + + + | BUN | 46 (A) | 6 - 23 mg/dL | | | + + + + + + | Creatinine | 2.06 (A) | 0.70 - 1.18 | | | | | | mg/dL | | | + + + + + + | BUN/Creatin | 22.4 | 6.0 - 28.6 | | | | ine Ratio | | | | | + + + + + + | Calcium | 8.5 | 8.5 - 10.3 | | | + + + + + + | Protein, | 6.3 | 6.0 - 8.3 | | | | Total | | | | | + + + + + + | Albumin | 2.9 (A) | 3.5 - 5.0 g/dL | | | + + + + + + | Globulin | 3.4 | 1.8 - 3.5 | | | + + + + + + | Albumin/Zoe | 0.9 (A) | 1.1 - 2.4 | | | | bulin Ratio | | | | | + + + + + + | BILIRUBIN, | 0.9 | 0.0 - 1.2 | | | | TOTAL | | | | | + + + + + + | Alkaline | 172 (A) | 31 - 130 U/L | | | | Phosphatase | | | | | + + + + + + | AST | 45 (A) | 13 - 39 U/L | | | + + + + + + | ALT | 21 | 7 - 52 U/L | | | + + + + + + | Estimated | 24.0 | >60 | | | | GFR | | mL/min/1.73m2 | | | + + + + + + + + | Specimen | + + | Blood | + + Renal Function Panel (10/24/2019) + + + + + + | Component | Value | Ref Range | Performed | Pathologist | | | | | At | Signature | + + + + + + | Glucose, | 99 | 70 - 100 mg/dL | | | | Fasting | | | | | + + + + + + | BUN | 77 (A) | 6 - 23 mg/dL | | | + + + + + + | Creatinine | 3.20 (A) | 0.70 - 1.18 | | | + + + + + + | PHOSPHORUS | 3.5 | 2.5 - 5.0 | | | + + + + + + | Albumin | 3.6 | 3.5 - 5.0 g/dL | | | + + + + + + | Na | 136 | 132 - 143 | | | | | | mmol/L | | | + + + + + + | K | 5.6 | 3.2 - 5.7 | | | | | | mmol/L | | | + + + + + + | Cl | 86 (A) | 95 - 112 mmol/L | | | + + + + + + | CO2 | 33 | 19 - 33 mmol/L | | | + + + + + + | Anion Gap | 23 (A) | 7 - 21 mmol/L | | | + + + + + + | Estimated | 14.0 | >60 | | | | GFR | | mL/min/1.73m2 | | | + + + + + + | BUN/Creatin | 24.1 | 6 - 28.6 | | | | ine Ratio | | | | | + + + + + + | Calcium | 9.5 | 8.5 - 10.3 | | | + + + + + + + + | Specimen | + + | Blood | + + ECG 12 lead (09/27/2019 3:15 PM PDT) + + + + + + | Component | Value | Ref Range | Performed | Pathologist | | | | | At | Signature | + + + + + + | VENTRICULAR | 55 | BPM | [facility] | | | RATE EKG | | | | | + + + + + + | ATRIAL RATE | 55 | BPM | [facility] | | + + + + + + | P-R | 186 | ms | [facility] | | | INTERVAL | | | | | + + + + + + | QRS | 96 | ms | [facility] | | | DURATION | | | | | + + + + + + | Q-T | 354 | ms | [facility] | | | INTERVAL | | | | | + + + + + + | Q-T | 338 | ms | [facility] | | | INTERVAL | | | | | | (CORRECTED) | | | | | + + + + + + | P WAVE AXIS | 34 | degrees | [facility] | | + + + + + + | QRS AXIS | -16 | degrees | [facility] | | + + + + + + | T AXIS | 43 | degrees | [facility] | | + + + + + + | INTERPRETAT | Sinus bradycardiaLeft | | [facility] | | | ION TEXT | axis deviationLow | | | | | | voltage QRSCannot rule | | | | | | out Anterior infarct | | | | | | (cited on or before | | | | | | 18-JAN-2015)Abnormal | | | | | | ECGWhen compared with | | | | | | ECG of 18-JAN-2015 | | | | | | 14:18,ST no longer | | | | | | depressed in Anterior | | | | | | leadsNonspecific T wave | | | | | | abnormality, improved in | | | | | | Inferior | | | | | | leadsNonspecific T wave | | | | | | abnormality has replaced | | | | | | inverted T waves in | | | | | | Anterolateral leadsQT | | | | | | has shortenedConfirmed | | | | | | by PARAM MCKEON, YAQUELIN | | | | | | ([id number]) on 09/28/2019 | | | | | | 11:04:26 AM | | | | + + [...] | | + +---------+ + + | [facility] | | | | + +---------+ + + from Last 3 Months Insurance + +--------+ +--------+ +---------+--------+ | Payer | Benefi | Subscriber | Effect | Phone | Address | Type | | | t Plan | ID | kj | | | | | | / | | Dates | | | | | | Group | | | | | | + +--------+ +--------+ +---------+--------+ | [employer] | [employer] | [id number] | 05/23/19 | | | Medica | | | HEALTH | | 14-Pre | | | re | | | MDCR | | sent | | | | + +--------+ +--------+ +---------+--------+ | [employer] | [employer] | [id number] | 05/23/19 | | | Medica | | | HEALTH | | 19-Pre | | | re | | | MDCR | | sent | | | | + +--------+ +--------+ +---------+--------+ | [employer] | [employer] | [id number] | 05/30/19 | [phone] | | Medica | | MEDICAID HMO | HEALTH | | 20-Pre | 1 | | id | | | MDCD | | sent | | | | | | [place]MO [place] | | | | | | + +--------+ +--------+ +---------+--------+ + +--------+ +--------+ + + | Guarantor Name | Accoun | Relation to | Date | Phone | Billing Address | | | t Type | Patient | of | | | | | | | | | | + +--------+ +--------+ + + | Opal Petty | Person | Self [birth year] [address] | | [place] | al/Fam | | 1946 | [phone] | [address] | | | [place] | | | [address] (Home) | [place], [place] | | | | | | | [address] | + +--------+ +--------+ + + | Opal Petty | Person | Self [birth year] | [address] | | [place] | al/Fam | | 1946 | [phone] | [address] | | | [place] | | | 1 (Home) | [place], [place] | | | | | | | [phone] | + +--------+ +--------+ + + Advance Directives + + + + + | Type | Date Recorded | Patient | Explanation | | | | Cross Country/Track And Field Coach | | + + + + + | Power of | | | | | Repeater Chief | | | | + + + + + | Advance | 05/10/2014 | | | | Directive | 12:33 PM | | | + + + + +
--- OUTSIDE RECORDS SUMMARY | ~2019-12-24 | XMS | Encounter Summary ---
Demographics + + + | Address | [address] | | | [place] [address] | + + + | Home Phone | | + + + | Preferred Language | Unknown | + + + | Marital Status | Single | + + + | Zoroastrian Affiliation | 1041 | + + + | Race | Unknown | + + + | Ethnic Group | Unknown | + + + Author + + + | Author | [facility] | | | and [place] | + + + | Organization | [facility] | | | and [...] Team Providers + +------+ + | Care Technician Terminal And Repeater Name | Role | Phone | + +------+ + | Rick Osorio DO | PCP | | + +------+ + Reason for Visit Evaluate & Treat (Routine) +--------+ + + [...] Required | | kidney | [address] | [place] | | | | | disease, | [address] | [address] | | | | | unspecified | [address] | [place] [address] | | | | | CKD stage | [place], [place] | [address] | | | | | | [address] | [place], [place] | | | | | | Phone: | [phone] | | | | | | [phone] | Phone: | | | | | | Fax: | [phone] | | | | | | [phone] | Fax: | | | | | | | [phone] | +--------+ + + + + + Encounter Details +--------+ + + + + | Date | Type | Department | Care Team | Description | +--------+ + + + + | 11/28/ | Virtual | [facility] | Emil Oliva MD | Essential | | 2020 | Office | NEPHROLOGY [place] | [address] | hypertension, benign | | | Visit | [address] | [address] [place], [place] | (Primary Dx); ZULAY | | | | [address] [place], [place] | [address] | (acute kidney | | | | [address] | | injury) ([facility]); ATN | | | | [phone] | | (acute tubular | | | | | | necrosis) ([facility]); | | | | | | Immunosuppression | | | | | | ([facility]); Persistent | | | | | | proteinuria; Vitamin | | | | | | D deficiency | +--------+ + + + + Social [...] + + documented as of this encounter Patient Instructions Patient Instructions Emil Oliva MD - 11/29/2019 10:40 AM PDTDiscussions/Recommendations : I discussed today with Ms. Petty the meaning of her severe ZULAY and the interaction of th at with her hemodynamics. I stressed the importance of keeping her BP controlled and avoiding getting dehydrated i f we are to have a chance at helping preserve her renal function. She showed good understan ding. I gave her instructions on how to chart her blood pressure in the appropriate manner at home. She is to call us if they fall outside of the optimal provided range. She will bring her sphygmomanometer for validation once a year. She will abide by a low salt diet. She will avoid all kinds of NSAIDs for analgesia. Also: She is to F/U with her primary team on her ongoing dysuria. Hold Diltiazem till SBP's > 100 mmHg. She will report back to me her home weights & home BP readings in 2 weeks. At that time, I will decide whether any change to his vasoactive regimen is warranted. Retrieve the report of her renal & bladder U/S from her [facility] hospitalization in late . Management of her immunosuppression is per her Liver team. She will F/U with your office regularly. She will have a BMP, CBC, intact PTH, uric acid, Urine total ljhjpyw-vw-sruromlclq ratio before she comes back in 2 months. 1 1:43 AM PDT documented in this encounter Progress Notes Emil Oliva MD - 11/29/2019 10:40 AM PDT Patient Active Problem List Diagnosis Date Noted POA Paroxysmal atrial fibrillation 09/30/2019 Unknown Immunosuppression 01/14/2015 Unknown Restrictive lung disease 03/26/2014 Unknown Kyphosis deformity of spine 03/04/2014 Unknown Hypoxemia 02/20/2014 Unknown CKD (chronic kidney disease), stage III 06/11/2013 Unknown Dyslipidemia 04/23/2013 Unknown Essential hypertension, benign 04/23/2013 Unknown Hypothyroidism 04/23/2013 Unknown Liver replaced by transplant 04/23/2013 Unknown Osteoarthrosis 04/23/2013 Unknown Proteinuria 04/23/2013 Unknown Vitamin D deficiency 04/23/[address] Osorio: Thank you for the opportunity to see Ms. Petty in consult in hospital F/U on an urgent basi s today. As you are familiar with her case, I will not state her past history in detail. Jose A bergman, she is a 73 y.o. female patient with past history as delineated above. She is here to be evaluated for a recent decline in her GFR. She was hospitalized at [facility] with ADHF, ZULAY in late 09/2019. Diuresed. The patient has history of hypertension since ~1999. Her BP control has been reportedly low .* She denies any history of prolonged exposure to NSAIDs or recent exposure to known nephro toxins. She denies any recurrent nephrolithiasis or pyelonephritis. she tells me that She's had no history of urinary retention, gross hematuria or dysuria. She has no incontinence sym ptoms. +ve symptoms of UTI: dysuria for 1 week. She has 0 nightly nocturia. No history of p assing kidney stones. She has no foamy urine either. Her baseline Creatinine is 0.82 from 20 15. There is no family history of renal genetic diseases such as PKD. She says that she feels 'good ' today. She denies any blurred vision tinnitus, headache, f ever, chills, or cough. No nausea, vomiting, abdominal pain, diarrhea, melena, or hematoche fran. No chest pain, palpitation, loss of consciousness, orthopnea, paroxysmal nocturnal dys pnea, or leg edema. She has postural dizziness. The following portions of the patient's history were reviewed and updated as appropriate: a llergies, current medications, past medical history, past social history, past surgical hist ory, family history and problem list. I also reviewed with her the records received from you r office; these were very informative. *I also reviewed with her the records from her most recent hospitalization, but no discharg e summary available.* As in History of Present Illness & in Assessment. All the twelve systems were reviewed and were otherwise negative. Active comorbid conditions include: - hypertension; essential; with renal disease; with CKD stage 1-4 - renal disease; kidney failure; acute - endocrine problem - hypothyroidism - cirrhosis - CVA Past Medical History: Diagnosis Date Atrial fibrillation [...] Procedure: COLONOSCOPY; Surgeon: Juan Ramey MD; Location: [facility]; Service: G astroenterology; Laterality: N/A; GALLBLADDER SURGERY 1991 LIVER TRANSPLANT 1990 LIVER TRANSPLANT 192 SPLENECTOMY, TOTAL s/p splenic vein thrombosis SPLENECTOMY, TOTAL TONSILLECTOMY AND ADENOIDECTOMY 1950 Family History Problem Relation Age of Onset * Mother after sugery for a bowel obstruction ADD/ADHD Father Diabetes, NIDDM Father Diabetes Father * Sister healthy Stroke Brother * Brother lung lung disease NOS Kidney disease Neg Hx Social History Socioeconomic History Marital status: Single Spouse name: Not on file Number of children: Not on file Years of education: Not on file Highest education level: Not on file Occupational History Not on file Social Needs Financial resource strain: Not on file Food insecurity Worry: Not on file Inability: Not on file Transportation needs Medical: Not on file Non-medical: Not on file Tobacco Use Smoking status: Never Smoker Smokeless tobacco: Never Used Substance and Sexual Activity Alcohol use: Yes Alcohol/week: 5.8 standard drinks Types: 7 Standard drinks or equivalent per week Comment: Alcoholic Drinks/day: beer / night Drug use: No Comment: Drug use: No Sexual activity: Not on file Lifestyle Physical activity Days per week: Not on file Minutes per session: Not on file Stress: Not on file Relationships Social connections Talks on phone: Not on file Gets together: Not on file Attends rastafari service: Not on file Active member of club or organization: Not on file Attends meetings of clubs or organizations: Not on file Relationship status: Not on file Intimate partner violence Fear of current or ex partner: Not on file Emotionally abused: Not on file Physically abused: Not on file Forced sexual activity: Not on file Other Topics Concern Not on file Social History Narrative Lives by herself Single No kids 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 , Disp: , Rfl: cyanocobalamin (VITAMIN B 12) 500 mcg tablet, Take 500 mcg by mouth Daily., Disp: , Rf l: cycloSPORINE (SANDIMMUNE) 25 mg capsule, Take 25 mg by mouth 2 times daily., Disp: , R fl: digoxin (LANOXIN) 125 mcg tablet, Take 125 mcg by mouth Twice a week., Disp: , Rfl: dilTIAZem (CARDIZEM CD) 180 mg 24 hr capsule, Take 180 mg by mouth Daily ., Disp: , Rf l: ferrous sulfate 325 mg tablet, Take 325 mg by mouth daily (with breakfast)., Disp: , R fl: furosemide (LASIX) 20 mg tablet, Take 1 tablet by mouth Daily. (Patient not taking: Re ported on 11/29/2019.), Disp: 30 tablet, Rfl: 11 gabapentin (NEURONTIN) 400 mg capsule, Take 400 mg by mouth 2 times daily., Disp: , Rf l: levothyroxine (SYNTHROID) 88 mcg tablet, Take by mouth every morning (before breakfas t)., Disp: , Rfl: metoprolol succinate (TOPROL-XL) 200 mg ER tablet, Take 200 mg by mouth Daily., Disp: , Rfl: omeprazole (PRILOSEC) 20 mg capsule, Take 20 mg by mouth every morning (before break st)., Disp: , Rfl: pravastatin (PRAVACHOL) 10 mg tablet, Take 10 mg by mouth nightly., Disp: , Rfl: traZODone (DESYREL) 100 mg tablet, Take 100 mg by mouth nightly., Disp: , Rfl: warfarin (COUMADIN) 5 mg tablet, Take 2.5 mg by mouth 2 times daily ., Disp: , Rfl: Physical Exam: There were no vitals taken for this visit. General appearance: Pleasant, not in acute distress. Neck: Supple without tracheal deviation or no jugular venous distension. Head and ENT: Head is atraumatic. Hearing is appropriate. Eyes: Anicteric. The extraocular muscle movements are normal. Lungs: Good chest expansion. Breathing comfortably. Musculoskeletal: No swelling of hand joints bilaterally. No deformities noted. Extremities: Warm to touch with trace leg edema, as performed by caregiver after coaching on how to do it by myself. There is no digital cyanosis. Skin: There are no rashes, petechiae, or ecchymosis in the visible parts of the skin. Neurological: Awake, alert, and oriented to time, place, and person. Normal gross motor po wer. There is no asterixis. Psychiatric: The patient s behavior is normal. Judgment and thought content are normal. Lab Results Component Value Date HGB 12.5 11/24/2019 HCT 39.3 11/24/2019 NA 138 11/24/2019 K 4.2 11/24/2019 CL 92 (A) 11/24/2019 CO2 37 (A) 11/24/2019 BUN 46 (A) 11/24/2019 CREA 2.06 (A) 11/24/2019 CALCIUM 8.5 11/24/2019 ALBUMIN 2.9 (A) 11/24/2019 EGFR 24.0 11/24/2019 LABPROT 6.3 02/03/2015 LABPROT 222.2 (A) 11/15/2014 No results for input(s): BUN, CREA, EGFR, NA, K, CL, CO2, CALCIUM, PHOS, MG, ALBUMIN, HGB, HCT, IRON in the last 72 hours. No components found for: MALBRX No components found for: MICROALBUR Assessment: Ms. Petty is a 73 y.o. female patient with stage a recovering severe ZULAY (acute kidney inju ry), likelt ATN (acute tubular necrosis) that was hemodynamic in the setting of ADHF; on a background of long standing hypertension. RENAL FUNCTION: GFr is improving vs late 09/2019 BLOOD PRESSURE: low BLOOD SUGAR: Reports it normal ELECTROLYTES: ok ANEMIA: none VITAMIN D: To be checked thru your office PARATHYROID HORMONE: To be checked when indicated soon URIC ACID: To be checked PROTEINURIA: To be quantitated. Her SPIE was negative on 10/29/2019 URINALYSIS: To be rechecked thru your office VOLUME STATUS: Euvolumic. Discussions/Recommendations: I discussed today with Ms. Petty the meaning of her severe ZULAY and the interaction of th at with her hemodynamics. I stressed the importance of keeping her BP controlled and avoiding getting dehydrated i f we are to have a chance at helping preserve her renal function. She showed good understan ding. I gave her instructions on how to chart her blood pressure in the appropriate manner at home. She is to call us if they fall outside of the optimal provided range. She will bring her sphygmomanometer for validation once a year. She will abide by a low salt diet. She will avoid all kinds of NSAIDs for analgesia. Also: She is to F/U with her primary team on her ongoing dysuria. Hold Diltiazem till SBP's > 100 mmHg. She will report back to me her home weights & home BP readings in 2 weeks. At that time, I will decide whether any change to his vasoactive regimen is warranted. Retrieve the report of her renal & bladder U/S from her [facility] hospitalization in late . Retrieve the report of her discharge summary from her [facility] hospitalization in late 09/21 020. Management of her immunosuppression is per her Liver team. She will F/U with your office regularly. She will have a BMP, CBC, intact PTH, uric acid, Urine total wzzairl-cf-rcvpsqrlcu ratio before she comes back in [address]. [address] Osorio for the opportunity to see this patient in consult in hospital F/U on a n urgent basis today. Please do not hesitate to call me at any time with questions or concer ns. Truly yours, Emil Oliva MD FAC FAHA This exam was initially conducted via a secure 256-bit AES encrypted bidirectional video se ssion. You have chosen to receive care through the use of telemedicine. Telemedicine enables [facility] care providers at different locations to provide safe, effective and convenient care throu gh the use of technology. As with any health care service, there are risks associated with t he use of telemedicine, including equipment failure, poor image resolution and information s ecurity issues. Do you understand the risks and benefits of telemedicine as I have explained them to you? " Yes" Have your questions regarding telemedicine been answered? "Yes" Patient is currently at home Do you consent to the use of telemedicine in your medical care today? Yes. Last question, I need to confirm where are you physically located right now? Answer: Patient confirms they are located in a state where IEmil MD am licensed. documented in this enco unter Plan of Treatment +--------+ + + + + | Date | Type | Specialty | Care Team | Description | +--------+ + + + + | 02/05/ | Virtual | Nephrology | Emil Oliva MD | | | 2019 | Office | | [address] | | | | Visit | | [facility] | | | | | | [address] | | | | | | | | +--------+ + + + + | 03/20/ | Office | Cardiology | ParvezlazJessica barger | | | 2019 | Visit | | [address] | | | | | | [address] | | | | | | [place] [address] | | | | | | [phone] | | | | | | | | +--------+ + + + + documented as of this encounter Visit Diagnoses + + | Diagnosis | + + | Essential hypertension, benign - Primary | + + | ZULAY (acute kidney injury) ([facility]) Acute kidney failure, unspecified | + + | ATN (acute tubular necrosis) ([facility]) Acute kidney failure with lesion of tubular | | necrosis | + + | Immunosuppression ([facility]) Unspecified disorder of immune mechanism | + + | Persistent proteinuria Proteinuria | + + | Vitamin D deficiency Unspecified vitamin D deficiency | + + documented in this encounter
--- OUTSIDE RECORDS SUMMARY | ~2019-12-24 | XMS | Encounter Summary ---
Demographics + + + | Address | [address] | | | [place] [address] | + + + | Home Phone [...] Team Providers + +------+ + | Care Reinsurance Analyst Name | Role | Phone | + +------+ + | Rick Osorio DO | PCP | | + +------+ + Encounter Details +--------+ + + + + | Date | Type | Department | Care Team | Description | +--------+ + + + + | 11/28/ | Orders Only | [facility] | Emil Oliva MD | Persistent | | 2020 | | [facility]HOLOGY [place] | [address] [facility] [address] | proteinuria (Primary | | | | [address] | [address] [facility] [place] | Dx); CKD (chronic | | | | [address] [place], [place] | [address] | kidney disease), | | | | [address] | | stage III (HCC); ZULAY | | | | [phone] | | (acute kidney | | | | | | injury) (HCC) | +--------+ + + + + Social [...] + + documented as of this encounter Progress Notes Kavya Schwab, Deputy Administrator - 11/29/2019 11:58 AM PDT She will have a BMP, CB C, intact PTH, uric acid, Urine total yiemkww-de-qhtqeeqmlp ratio before she comes back in 2 months. documented in this encounter Plan of Treatment +--------+ + + + + | Date | Type | Specialty | Care Team | Description | +--------+ + + + + | 02/05/ | Virtual | Nephrology | Emil Oliva MD | | | 2019 | Office | | [address] [facility] [address] | | | | Visit | | [address] [place] | | | | | | [address] | | | | | | | | +--------+ + + + + | 03/20/ | Office | Cardiology | Jessica Barnes | | | 2019 | Visit | | [address] | | | | | | [address] | | | | | | [place] [address] | | | | | | [phone] | | | | | | | | +--------+ + + + + + +------+--------+ + + | Name | Type | Priori | Associated Diagnoses | Order Schedule | | | | ty | | | + +------+--------+ + + | Basic Metabolic | Lab | Routin | Persistent | Expected: | | Panel | | e | proteinuria CKD | 01/30/2020, Expires: | | | | | (chronic kidney | 05/31/2020 | | | | | disease), stage III | | | | | | ([facility]) ZULAY (acute | | | | | | kidney injury) ([facility]) | | + +------+--------+ + + | CBC no Differential | Lab | Routin | Persistent | Expected: | | | | e | proteinuria CKD | 01/30/2020, Expires: | | | | | (chronic kidney | 11/28/2020 | | | | | disease), stage III | | | | | | ([facility]) ZULAY (acute | | | | | | kidney injury) ([facility]) | | + +------+--------+ + + | Parathyroid Hormone, | Lab | Routin | Persistent | Expected: | | Intact | | e | proteinuria CKD | 01/30/2020, Expires: | | | | | (chronic kidney | 11/28/2020 | | | | | disease), stage III | | | | | | ([facility]) ZULAY (acute | | | | | | kidney injury) ([facility]) | | + +------+--------+ + + | Uric Acid | Lab | Routin | Persistent | Expected: | | | | e | proteinuria CKD | 01/30/2020, Expires: | | | | | (chronic kidney | 05/31/2020 | | | | | disease), stage III | | | | | | ([facility]) ZULAY (acute | | | | | | kidney injury) ([facility]) | | + +------+--------+ + + | Protein/Creatinine | Lab | Routin | Persistent | Expected: | | Ratio, Urine | | e | proteinuria CKD | 01/30/2020, Expires: | | | | | (chronic kidney | 11/28/2020 | | | | | disease), stage III | | | | | | ([facility]) ZULAY (acute | | | | | | kidney injury) ([facility]) | | + +------+--------+ + + documented as of this encounter Visit Diagnoses + + | Diagnosis | + + | Persistent proteinuria - Primary Proteinuria | + + | CKD (chronic kidney disease), stage III (HCC) Chronic kidney disease, Stage III | | (moderate) | + + | ZULAY (acute kidney injury) (HCC) Acute kidney failure, unspecified | + + documented in this encounter"
--- OUTSIDE RECORDS SUMMARY | ~2019-12-24 | XMS | Encounter Summary ---
Demographics + + + | Address | [address] | | | [place] [address] | + + + | Home Phone | | + + + | Preferred Language | Unknown | + + + | Marital Status | Single | + + + | Taoism Affiliation | 1041 | + + + | Race | Unknown | + + + | Ethnic Group | Unknown | + + + Author + + + | Author | [facility] | | | and [place] | + + + | Organization | [facility] | | | and [place] | + [...] Team Providers + +------+ + | Care Presentation Designer Name | Role | Phone | + +------+ + | Rick Osorio DO | PCP | | + +------+ + Encounter Details +--------+ + + + + | Date | Type | Department | Care Team | Description | +--------+ + + + + | 06/04/ | Orders Only | [facility] | Emil Oliva MD | | | 2013 | | NEPHROLOGY [place] | [address] | | | | | [address] | [address] [place], [place] | | | | | [address] [place], [place] | [address] | | | | | [address] | | | | | | [phone] | | | +--------+ + + + [...] as of this encounter Plan of Treatment +--------+ + [...] [place] | | | | | | [address] | | | | | | | | +--------+ + + + + | 03/20/ | Office | Cardiology | Jessica Barnes | | | 2020 | Visit | | [address] | | | | | | [address] | | | | | | [place] [address] | | | | | | [phone] | | | | | | | [...] | + +-------+ + + + | Non- | 3.19 | 10 | EXTERNAL | | | Red Blood | | | LAB | | | Cells | | | | | | Counted | | | [...] | + +-------+ + + + | eGFR, | | | EXTERNAL | | | non- | | | LAB | | | [place] | | | | | + +-------+ [...] + + + + + + | Clarity, | Clear | | EXTERNAL | | | Urine [...] + +---------+ + + External Lab: [facility] (06/04/2013 12:00 AM PST) + +-------+ + + + | Component | Value | Ref Range | Performed | Pathologist | | | | | At | Signature | + +-------+ + + + | WBC | 9.5 | 10 | EXTERNAL | | | | | | LAB | | + +-------+ + + + | Non- | 3.14 | 10 | EXTERNAL | | | Red Blood | | | LAB | | | Cells | | | | | | Counted | | | [...]
--- OUTSIDE RECORDS SUMMARY | ~2019-12-24 | XMS | Encounter Summary ---
Demographics + + + | Address | [address] | | | [place] [address] | + + + | Home Phone | | + + + | Preferred Language | Unknown | + + + | Marital Status | Single | + + + | Confucianist Affiliation | 1041 | + + + [...] Team Providers + +------+ + | Care Plumber Apprentice Name | Role | Phone | + +------+ + | Rick Osorio DO | PCP | | + +------+ + Encounter Details +--------+ + + + + | Date | Type | Department | Care Team | Description | +--------+ + + + + | 11/15/ | Orders Only | [facility] | Emil Oliva MD | | | 2014 | | NEPHROLOGY [place] | [address] | | | | | [address] [facility] [address] | [address] [place], [place] | | | | | [address] [place], [place] | [address] | | | | | [address] | | | | | | [phone] | | | +--------+ + + + [...] 2019 | Office | | [address] [facility] [address] | | | | Visit | | [address] [place] | | | | | | [address] | | | | | | | | +--------+ + + + + | 03/20/ | Office | Cardiology | Chascharbel Jessica | | | 2019 | Visit | | [address] | | | | | [address] | | | | | | [place] [address] | | | | | | [phone] | | | | | | | [...]
--- OUTSIDE RECORDS SUMMARY | ~2019-12-24 | XMS | Encounter Summary ---
Demographics + + + | Address | [address] | | | [place] [address] | + + + | Home Phone | | + + + | Preferred Language | Unknown | + + + | Marital Status | Single | + + + | Jain Affiliation | [id number] | + + + [...] Team Providers + +------+ + | Care Shrink Pit Operator Name | Role | Phone | + +------+ + | Rick Osorio DO | PCP | | + +------+ + Reason for Visit +--------+ + | Reason | Comments | +--------+ + | Other | abstracting referral | +--------+ + Encounter Details +--------+ + + + + | Date | Type | Department | Care Team | Description | +--------+ + + + + | 11/20/ | Documentati | [facility] | Batsheva Bellamy, | Other (abstracting | | 2020 | on | [facility] [place] | Bridge Ironworker Helper | referral ) | | | | [address] | | | | | | [address] [place], [place] | | | | | | [address] | | | | | | [phone] | | | +--------+ + + + [...] 2019 | Office | | [address] | | | | Visit | | [address] [place], [place] | | | | | | [address] | | | | | | | | +--------+ + + + + | 03/20/ | Office | Cardiology | Molly Jessica | | | 2020 | Visit | | [address] | | | | | [address] | | | | | | [place] [address] | | | | | | [phone] | | | | | | | [...] + + documented in this encounter Results CBC with Differential (10/31/2019) + + + + + + | Component | Value | Ref Range | Performed | Pathologist | | | | | At | Signature | + + + + + + | WBC | 9.7 | 4.5 - 11.0 | | | | | | 10*3/uL | | | + + + + + + | Red Blood | 4.10 | 3.8 - 5.1 | | | | Cells | | | | | + + + + + + | Hemoglobin | 13.9 | 12.0 - 16.0 | | | | | | g/dL | | | + + + + + + | Hematocrit | 42.1 | 35.0 - 45.0 % | | | + + + + + + | MCV | 102.7 (A) | 81.0 - 99.0 fL | | | + + + + + + | MCH | 34 (A) | 27 - 33 | | | + + + + + + | MCHC | 33.0 | 30.0 - 36.0 | | | | | | g/dL | | | + + + + + + | RDW | 13.8 | 10.5 - 15 | | | + + + + + + | Platelet | 223 | 140 - 400 K/uL | | | | Count | | | | | + + + + + + + + | Specimen | + + | Blood | + + Comprehensive Metabolic Panel (10/31/2019) + + + + + + | Component | Value | Ref Range | Performed | Pathologist | | | | | At | Signature | + + + + + + | Na | 134 | 132 - 143 | | | | | | mmol/L | | | + + + + + + | K | 4.1 | 3.2 - 5.7 | | | | | | mmol/L | | | + + + + + + | Cl | 85 (A) | 95 - 112 mmol/L | | | + + + + + + | CO2 | 36 (A) | 19 - 31 mmol/L | | | + + + + + + | Anion Gap | 17 | 7 - 21 mmol/L | | | + + + + + + | Glucose | 100 | 70 - 100 mg/dL | | | + + + + + + | BUN | 62 (A) | 6 - 23 mg/dL | | | + + + + + + | Creatinine | 2.39 (A) | 0.70 - 1.30 | | | | | | mg/dL | | | + + + + + + | BUN/Creatin | 25.9 | 6.0 - 28.6 | | | | ine Ratio | | | | | + + + + + + | Calcium | 10.2 | 8.5 - 10.3 | | | + + + + + + | Protein, | 8.9 (A) | 6.0 - 8.3 | | | | Total | | | | | + + + + + + | Albumin | 4.0 | 3.5 - 5.0 g/dL | | | + + + + + + | Globulin | 4.0 (A) | 1.8 - 3.5 | | | + + + + + + | Albumin/Zoe | 0.8 (A) | 1.1 - 2.4 | | | | bulin Ratio | | | | | + + + + + + | BILIRUBIN, | 1.0 | 0.0 - 1.2 | | | | TOTAL | | | | | + + + + + + | Alkaline | 247 (A) | 31 - 139 U/L | | | | Phosphatase | | | | | + + + + + + | AST | 32 | 13 - 39 U/L | | | + + + + + + | ALT | 16 | 7 - 52 U/L | | | + + + + + + | Estimated | 20.0 | >60 | | | | GFR [...] + + | Blood | + + documented in this encounter Visit Diagnoses Not on filedocumented in this encounter"
--- OUTSIDE RECORDS SUMMARY | ~2019-12-24 | XMS | Encounter Summary ---
Demographics + + + | Address | [address] | | | [place] [address] | + + + | Home Phone [...] | + + +---------+ + | Annie Saeed | ECON | Unknown | | + + +---------+ + Care Team Providers + +------+ + | Care Community Service Coordinator Name | Role | Phone | + +------+ + | Rick Osorio DO | PCP | | + +------+ + Reason for Visit + + + | Reason | Comments | + + + | New Patient | NEW PATIENT | + + + Evaluate & Treat (Urgent) +--------+--------+ + + + + | Status | Reason | Specialty | Diagnoses / | Referred By | Referred To | | | | | Procedures | Contact | Contact | +--------+--------+ + + + + | Closed | | Cardiology | Diagnoses | Jo, | Alves, | | | | | | Rick, DO | Yaquelin, DO | | | | | Tachycardia, | [address] | [address] | | | | | unspecified | [address] | [address] | | | | | Chronic | [address] | [place], [place] | | | | | atrial | [place], | [address] Phone: | | | | | fibrillation | [place] | [phone] | | | | | , | [address] | Fax: | | | | | unspecified | Phone: | [phone] | | | | | ([facility]LY [facility]) | [phone] | | | | | | Procedures | Fax: | | | | | | Consult | [phone] | | +--------+--------+ + + + + Encounter Details +--------+---------+ + + + | Date | Type | Department | Care Team | Description | +--------+---------+ + + + | 09/26/ | Office | [facility] | Yaquelin Alves DO | Tachycardia (Primary | | 2020 | Visit | CARDIOLOGY [place] | [address] | Dx); Edema, | | | | [address] | [address] [place], [place] | unspecified type; | | | | [address] | [address] | Paroxysmal atrial | | | | [place], [place] | | fibrillation (HCC) | | | | [address] | | | | | | [phone] | | | +--------+---------+ + + + [...] + + + | Blood Pressure | 120/68 | 09/27/2019 3:11 PM | | | | | PDT | | + + + + + | Pulse | 55 | 09/27/2019 3:11 PM | | | | | PDT | | + + + + + | Temperature | - | - | | + + + + + | Respiratory Rate | - | - | | + + + + + | Oxygen Saturation | 99% | 09/27/2019 3:11 PM | | | | | PDT | | + + + + + | Inhaled Oxygen | - | - | | | Concentration | | | | + + + + + | Weight | 94.8 kg (209 lb) | 09/27/2019 3:11 PM | | | | | PDT | | + + + + + | Height | 160 cm (5' 3") | 09/27/2019 3:11 PM | | | | | PDT | | + + + + + | Body Mass Index | 37.02 | 09/27/2019 3:11 PM | | | | | PDT | | + + + + + documented in this encounter Progress Yaquelin Dobbs DO - 09/27/2019 3:20 PM PDT [facility] Cardiology Cardiology Consult Note Reason for Consultation: tachycardia, chronic atrial [...] breath. She denies any orthopnea or PND. Review of Systems Constitutional: Negative for fatigue. [...] Past Surgical History: Procedure Laterality Date APPENDECTOMY 1966 CHOLECYSTECTOMY COLONOSCOPY 01/17/2015 Procedure: COLONOSCOPY; Surgeon: Juan Ramey MD; Location: [facility]; Service: G astroenterology; Laterality: N/A; GALLBLADDER SURGERY 1991 LIVER TRANSPLANT 1990 LIVER TRANSPLANT 192 SPLENECTOMY, TOTAL s/p splenic vein thrombosis SPLENECTOMY, TOTAL TONSILLECTOMY AND ADENOIDECTOMY 1950 MEDICATIONS Home Medications Outpatient Encounter Medications as of 09/27/2019 Medication Sig Dispense Refill alendronate (FOSAMAX) 70 mg tablet Take 70 mg by mouth every 7 days. allopurinol (ZYLOPRIM) 100 mg tablet Take 100 mg by mouth Daily. [DISCONTINUED] azaTHIOprine (IMURAN) 50 mg tablet Take 50 mg by mouth Daily. cholecalciferol (VITAMIN D-3) 25 mcg (1,000 units) tablet Take 25 mcg by mouth Daily. cyanocobalamin (VITAMIN B 12) 500 mcg tablet Take 500 mcg by mouth Daily. cycloSPORINE (SANDIMMUNE) 25 mg capsule Take 25 mg by mouth 3 times daily. [DISCONTINUED] digoxin (LANOXIN) 125 mcg tablet Take 125 mcg by mouth Daily. dilTIAZem (CARDIZEM CD) 180 mg 24 hr capsule Take 360 mg by mouth Daily. ferrous sulfate 325 mg tablet Take 325 mg by mouth daily (with breakfast). [DISCONTINUED] fluticasone (FLONASE) 50 mcg/nasal spray 1 spray by Nasal route Daily. furosemide (LASIX) 20 mg tablet Take 1 tablet by mouth Daily. 30 tablet 11 [DISCONTINUED] furosemide (LASIX) 20 mg tablet Take 20 mg by mouth Daily. gabapentin (NEURONTIN) 400 mg capsule Take 400 mg by mouth 2 times daily. [DISCONTINUED] HYDROcodone-acetaminophen (NORCO) 5-325 mg per tablet Take 1 tablet by m outh every 6 hours as needed. levothyroxine (SYNTHROID) 88 mcg tablet Take by mouth every morning (before breakfast) . [DISCONTINUED] methadone 10 mg tablet Take 10 mg by mouth 2 times daily. metoprolol succinate (TOPROL-XL) 200 mg ER tablet Take 200 mg by mouth Daily. [DISCONTINUED] metoprolol tartrate (LOPRESSOR) 50 mg tablet Take 100 mg by mouth 2 time s daily. omeprazole (PRILOSEC) 20 mg capsule Take 20 mg by mouth every morning (before breakfast ). pravastatin (PRAVACHOL) 10 mg tablet Take 10 mg by mouth nightly. traZODone (DESYREL) 100 mg tablet Take 100 mg by mouth nightly. warfarin (COUMADIN) 5 mg tablet Take 5 mg by mouth 2 times daily. No facility-administered encounter medications on file as of 09/27/2019. 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 EKG: Last Echo: 06/04/2019 There is mildly [...] who presents to the cardiology office for initial cons ultation regarding paroxysmal atrial fibrillation. She has been rate controlled with diltia zem, metoprolol, and digoxin. She is in normal sinus rhythm today. She has been feeling a lack of energy lately and believes that it is from low heart rates. She has also been having some mild SOB and LE edema. We will plan to scale back on her rate control and discontinue digoxin and add lasix. She has been tolerating anticoagulation well without any bleeding iss ues. - Discontinue digoxin Continue diltiazem 360 mg by mouth daily Continue metoprolol succinate 200 mg by mouth daily Start Lasix 20 mg by mouth daily - Obtain blood work in one week Continue pravastatin 10 mg by mouth daily Continue warfarin for anticoagulation Follow up in 4 weeks Thank you for allowing me to participate in the care of this patient. Primary Care Physician: DO Yaquelin Bellamy DO 09/30/2019 documented in this enco unter Plan of Treatment +--------+ + + + + | Date | Type | Specialty | Care Team | Description | +--------+ + + + + | 02/05/ | Virtual | Nephrology | Emil Oliva MD | | | 2019 | Office | | [address] | | | | Visit | | [address] [place] | | | | | | [address] | | | | | | | | +--------+ + + + + | 03/20/ | Office | Cardiology | ParvezlazJessica barger | | | 2019 | Visit | | [address] | | | | [address] | | | | | | [place] [address] | | | | | | [phone] | | | | | | | | +--------+ + + + + + +------+--------+ + + | Name | Type | Priori | Associated Diagnoses | Order Schedule | | | | ty | | | + +------+--------+ + + | Basic Metabolic | Lab | Routin | Edema, unspecified | 1 Occurrences | | Panel | | e | type | starting 09/27/2019 | | | | | | until 09/26/2020 | + +------+--------+ + + documented as [...] + + documented in this encounter Results ECG 12 lead (09/27/2019 3:15 PM PDT) [...] | | | | | | by YAQUELIN ALVES MD | | | | | | ([id number]) on 09/28/2019 | | | | | [...] + | Diagnosis | + + | Tachycardia - Primary Tachycardia, unspecified | + + | Edema, unspecified type | + + | Paroxysmal atrial fibrillation (HCC) Atrial fibrillation | + + documented in this encounter
--- OUTSIDE RECORDS SUMMARY | ~2019-12-24 | XMS | Encounter Summary ---
Demographics + + + | Address | [address] | | | [place] [address] | + + + | Home Phone | | + + + | Preferred Language | Unknown | + + + | Marital Status | Unknown | + + + | Lutheran Affiliation | Unknown | + + + | Race | Unknown | + + + | Ethnic Group | Unknown | + + + Author + + + | Author | [facility] | + + + | Organization | [facility] | + + + | Address | Unknown | + + + | Phone | Unavailable | + + + Care Team Providers + +------+ + | Care Waiter/Waitress Cafeteria Name | Role | Phone | + [...] | | [address] | [facility] [place] | | | | | [place], | [address] | | | | | [place] [address] | [phone] | | | | | [phone] | | | +--------+ + + + [...]
--- OUTSIDE RECORDS SUMMARY | ~2019-12-24 | XMS | Encounter Summary ---
Demographics + + + | Address | [address] | | | [place] [address] | + + + | Home Phone | | + + + | Preferred Language | Unknown | + + + | Marital Status | Unknown | + + + | Rastafarian Affiliation | Unknown | + + + | Race | Unknown | + + + | Ethnic Group | Unknown | + + + Author + + + | Author | [facility] | + + + | Organization | [facility] | + + + | Address | Unknown | + + + | Phone | Unavailable | + + + Care Team Providers + +------+ + | Care Fashion Merchandiser Name | Role | Phone | + +------+ + PCP | Unavailable | + +------+ + Reason for Visit +--------+ + | Reason | Comments | +--------+ + | Sepsis | | +--------+ + Encounter Details +--------+ + + + + | Date | Type | Department | Care Team | Description | +--------+ + + + + | 01/28/ | Emergency | [facility] | | | | 2014 | | Department [address] | | | | | [address] | | | | | | [facility] | | | | | | [place], [place] | | | | | | [address] | | | | | | [phone] | | | +--------+ + + + [...]
--- OUTSIDE RECORDS SUMMARY | ~2019-12-24 | XMS | Encounter Summary ---
Demographics + + + | Address | [address] | | | [place] [address] | + + + | Home Phone | | + + + | Preferred Language | Unknown | + + + | Marital Status | Single | + + + | Denominational Affiliation | 1041 | + + + | Race | Unknown | + + + | Ethnic Group | Unknown | + + + Author + + + | Author | [facility] | | | and [place] | + + + | Organization | [facility] | | [...] Team Providers + +------+ + | Care Smoke Control Supervisor Name | Role | Phone | + +------+ + | Yovani Santana MD | PCP | | + +------+ + Encounter Details +--------+ + + + + | Date | Type | Department | Care Team | Description | +--------+ + + + + | 01/14/ | Hospital | [facility] | Jennifer Weathers MD | Near syncope; | | 2015 - | Encounter | [facility] | [address] | Elevated troponin; | | | | CARE FLOOR [address] | [place] [address] | Non-STEMI (non-ST | | 01/19/ | | [address] | [phone] | elevated myocardial | | 2015 | | [place], [place] | | infarction) ([facility]); | | | | [id number] | | CKD (chronic kidney | | | | [phone] | | disease), | | | | [...] Discharge Summaries by Emma Hardy MD at 01/19/15752 Author: Emma Hardy MD Service: (none) Author Type: Physician Filed: 01/19/15 1411 Date of Service: 01/19/15752 Status: Signed Dairy Department Manager: Emma Hardy MD (Physician) Related Notes: Original Note by Emma Hardy MD (Physician) filed at 01/19/15 0800 [facility] Service: Hospitalist Physician Discharge Summary Patient ID: Cole Petty 1945 69 y.o. Admit date: 01/14/2015 Discharge date: 01/19/2015 Admitting Physician: Jennifer Weathers MD Discharge Physician: Emma Hardy MD Consultants: Treatment Team: Consulting Physician: Juju Riggins MD Consulting Physician: Nupur Tadeo MD Consulting Physician: Juan Ramey MD Admitting Provider: Jennifer Weathers MD Primary Discharge Diagnoses: Acute renal failure. 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 The patient was taken off methadone about 3 weeks prior to admission. Pre vious creatinine was 1.38 and the patient was presented at [facility] in [place] , was found to have elevated troponin of 0.55 and noted to have creatinine of 2.4 and leukoc ytosis and was transferred for xft-NO-dsgrowlgl ME. HOSPITAL COURSE The patient was admitted with vvj-WD-rjmvfqhht ME. Cardiology consult was obtained. She was started [...] lipid-lowerin g therapy. The patient also has quozo-kp-bzjdcex kidney disease, stage III. Acute renal fail [...] to have severe protein calorie malnutrition and slurry blender was consulted. Her blood pressures remain stable. 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 Discharge Vitals: Filed Vitals: 08/29/15 1922 01/18/15 2324 01/19/15 0350 01/19/15 0742 [...] Motor grossly intact. LABS: Recent Labs Lab 01/18/1532401/17/1535201/16/15320 WBC 8.07 10.74 10.55 RBC 3.41* 3.40* 3.28* HGB 11.9 12.0 11.6 HCT 35.7 35.8 34.5 MCV 104.6* 105.3* 105.1* MCH 34.9* 35.3* 35.3* MCHC 33.3 33.6 33.5 RDW 50.8 50.8 50.8 PLT 170 149* 144* MPV 12.6 13.0 13.0 DIFFTYPE AUTOMATED AUTOMATED AUTOMATED Recent Labs Lab 01/19/15 0330 01/18/1532401/17/156 01/17/153 01/16/15320 NA 136 136 -- -- 138 -- [...] 1.5* 1.8 1.4* Invalid input(s): ABG Disposition: assisted facility Follow up: Ki Osorio DO [address] [facility] [address] [place] [address] Schedule an appointment as soon as possible for a visit in 4 days Juan Ramey MD [address] [facility] [address] [facility] [address] Schedule an appointment as soon as possible for a visit in 1 week Follow up biopsy results Juju Riggins MD [address] [place] [address] Schedule an appointment as soon as [...] are the prescriptions that you need to 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 You may get the following medications from [...] summary. This entry has been created using [employer] Speech Recognition software and [employer]. The entry has been reviewed and there [...] | | | (SANDIMMUNE) 25 mg | 2 [...] Date of Service: 01/19/15 1300 Status: Signed Dairy Department Manager: Shaista Lin RN (Registered Nurse) Pt discharged via wheel chair on 2 L of oxygen. To [facility] in [place]. Pt alert and o rientedX4. onver alessandro Transaction, Provider Unknown - 01/19/2015 8:20 AM PDT Case Management by PHUONG Roman at 01/19/15819 Author: PHUONG Roman Service: (none) Author Type: Medical Assistant Ob Gyn Filed: 01/19/15819 Date of Service: 01/19/15819 Status: Signed Dairy Department Manager: PHUONG Roman (Medical Assistant Ob Gyn) Disposition: [facility] Transportation: facility van All orders, signed AVS, and prescriptions have been faxed- yes All DC paperwork completed Patient and family in agreement with discharge plan Medicare important message (Given or N/A): PHUONG Roman onver alessandro Transaction, Provider Unknown - 01/19/2015 4:13 AM PDT Nurse Progress Note by Yady Singh RN at 01/19/15 0413 Author: Yady Singh RN Service: (none) Author Type: Registered Nurse Filed: 01/19/15 0625 Date of Service: 01/19/15 041 Status: Signed Dairy Department Manager: Yady Singh RN (Registered Nurse) Patient resting quietly all night. Medicated once for all over general pain. No further com plaints. VSS. onver alessandro Transaction, Provider Unknown - 01/18/2015 3:21 PM PDT Case Management by PHUONG Roman at 01/18/15 1521 Author: PHUONG Roman Service: (none) Author Type: Medical Assistant Ob Gyn Filed: 01/18/15 1521 Date of Service: 01/18/15 152 Status: Signed Dairy Department Manager: PHUONG Roman (Medical Assistant Ob Gyn) CM spoke w/ Rondi at [facility] who reports they can accept and transport pt tomorrow AM. PHUONG Roman osangela Kirk MD - 01/18/2015 3:10 PM PDT Progress Notes by Rosangela Deras MD at 01/18/151509 Author: Rosangela Deras MD Service: Infectious Disease Author Type: Physician Filed: 01/18/15 1756 Date of Service: 01/18/151509 Status: Signed Dairy Department Manager: Rosangela Deras MD (Physician) [facility] Service: Infectious Disease Progress Note Hospital [...] vomiting and diarrhea. Had initially presented to [facility] in [place] with similar complaints. Was foun d to have an elevated troponin. She was mainly admitted as a non-STEMI. Found to have a leuk ocytosis. Since patient is immunocompromised, she was started empirically on IV ceftriaxone. Chest x-ray showed no infiltrate. Patient denies any recent fevers or chills. She went to [facility] mainly becau se of syncope. Prior [...] (01/18 1127) Heart Rate: [62-78] 78 (01/18 1125) Resp: [14-20] 18 (01/18 112) SpO2: [96 %-99 %] 98 % (01/18 112) Weight: [85.3 kg (188 lb 0.8 oz)-88.6 [...] extraluminal fluid collection abdomen pelvis without contrast [[id number]] Impression 1. Hypoinflated chest, but no evident infiltrate chest 1 view [[id number]] Impression 1. Indication for study and thus [...] Dr. Hardy Code Status: Full Code ROSANGELA DERAS MD 01/18/2015 ade Hardy MD - 01/18/2015 7:49 AM PDTFormatting of this note might be different from the origin al. Progress Notes by Emma Hardy MD at 01/18/15 0749 Author: Emma Hardy MD Service: (none) Author Type: Physician Filed: 01/18/15 1445 Date of Service: 01/18/15 0749 Status: Signed Dairy Department Manager: Emma Hardy MD (Physician) [facility] Service: Hospitalist Progress Note Hospital Day: LOS: 4 days SUBJECTIVE Patient Summary: 69-year-old female with history of liver transplant secondary to [facility] d[facility] biliary cirrhosis on immunosuppression, chronic pain, [...] C) Oral 62 20 96 % - 01/17/152244 143/89 mmHg - - 74 - 98 % - 01/17/15 2215 148/86 mmHg - - 74 - 98 % - 01/17/150 172/88 mmHg - - 70 - 96 % - 01/17/152143 - - - - - - 85.3 kg (188 lb 0.8 oz) 01/17/152141 158/88 mmHg 98.4 F (36.9 C) Oral 65 14 96 % - 01/17/152117 122/72 mmHg 97.3 F (36.3 C) Temporal 70 16 98 % - 01/17/152114 123/68 mmHg 97.4 F (36.3 C) Temporal 70 16 99 % - 01/17/15 194 152/85 mmHg 98.2 F (36.8 C) Oral [...] mood and affect. DATA Recent Labs Lab 01/18/1532401/17/1535201/16/15320 WBC 8.07 10.74 10.55 RBC 3.41* 3.40* 3.28* HGB 11.9 12.0 11.6 HCT 35.7 35.8 34.5 MCV 104.6* 105.3* 105.1* MCH 34.9* 35.3* 35.3* MCHC 33.3 33.6 33.5 RDW 50.8 50.8 50.8 PLT 170 149* 144* MPV 12.6 13.0 13.0 DIFFTYPE AUTOMATED AUTOMATED AUTOMATED Recent Labs Lab 01/18/1532401/17/15222501/17/15141201/17/1535201/16/15320 NA 136 -- -- 138 -- 138 [...] CKMBINDEX -- -- 2.6 Recent Labs Lab 01/18/1532401/17/15222501/17/151412 PHOS 2.6 3.2 2.1* Recent Labs Lab [...] (HCC) ASSESSMENT & PLAN 1. Non-ST elevation ME. Possible demand ischemia. Will schedule for nuclear [...] AM This entry has been created using [employer] Speech Recognition software and [employer]. The entry has been reviewed and there may still exist sound alike word errors. onversion Trans action, Provider Unknown - 01/18/2015 5:16 AM PDT Nurse Progress Note by Yady Singh RN at 01/18/15 0516 Author: Yady Singh RN Service: (none) Author Type: Registered Nurse Filed: 01/18/152104 Date of Service: 01/18/15515 Status: Signed Dairy Department Manager: Yady Singh RN (Registered Nurse) Pt [...] Date of Service: 01/17/15 1629 Status: Signed Dairy Department Manager: Jose Maria Espinal MD (Physician) Related Notes: Original Note by Jose Maria Espinal MD (Physician) filed at 01/17/152012 [facility] Service: Hospitalist Progress Note Pt: Cole Petty AGE/SEX: 69 y.o. female : 1945 ROOM: [address] [place] [address] History of Present Illness: " The patient [...] who called EMS. Patient was taken to [facility] in [place]. Susie ent was noted to have a [...] Patient had borderline blood pressure. While at [facility] with systolic in the low [...] CT done several days ago while in [place]. She also stat es that her vomiting and diarrhea have significantly improved. She denies any fevers, hemat emesis, melena, bright red blood per rectum, hematuria, dysuria, she denies any leg pain or swelling. No palpitations. She states she does have a history of "kidney disease" and was told that it was secondary to cyclosporine. However, she is not seen kidney specialist [facility] e her liver transplant.".....per admitting MD/Dr. Weathers. TODAY'S DATE: 01/17/2015 Hospital Day: LOS: 3 [...] as n oted. I urged the staff development coordinator rn to introduce a hat so that sample can be obtained. The case was d iscussed with Dr. Ramey with regards to the patient's abnormal colon appearance in the CT of the abdomen and pelvis in the area of splenic flexure. We asked Dr. Ramey to evaluate whether or not colonoscopy would be appropriate for further evaluation. Ms. Petty had an episode of chest pain lasting [...] So far, blood cultures remain negative. Bill Petty has been adherent to her immunosuppressive therapy [...] Oral 72 16 97 % - 01/16/15 195 (!) 166/99 mmHg 98.3 F (36.8 C) [...] MONOPCT 10.07 11.24 9.60 Recent Labs Lab 01/17/15141201/17/1535201/16/15200201/16/1532001/15/15 0632 NA -- 138 -- -- 138 [...] interval not displayed. Phosphorus: Recent Labs Lab 01/17/151412 PHOS 2.1* Recent Labs Lab 01/17/15141201/16/152002 08/27/15 0321 MG 1.2* 1.5* 1.2* Recent Labs [...] contrast. Prior study for comparison: None FINDINGS: Train Attendant 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 deg enerative changes [...] Cardiac Adult Complete 01/15/2015 Patient Name: COLE PETTY Date of : 1945 Performing Physician: Gil [...] LA/Ao: 1.57 D-E Excursion: 2.11 cm E-F [place]: 0.09 m/s EPSS: 0.48 cm HR: 77.41 [...] TV A Billy: 0.66 m/s TV Dec [place]: 4.36 m/s2 TV Dec Time: 184.41 ms TV E Billy: 0.80 m/s TV E/A Rat io: 1.21 Retort Setter: NEDRA Authenticated by: Gil Coronel MD Report [...] has been showing increasing trend since ad . Hydralazine p.r.n. Will add p.r.n. IV labetalol [...] nutritional supplements as recommend ed by nutrition service/slurry blender. Jose Maria Espinal MD 01/17/2015 4:29 PM onversion Transa ction, Provider Unknown - 01/17/2015 3:15 PM PDT Case Management by PHUONG Sandhu at 01/17/15 7229 Author: PHUONG Sandhu Service: (none) Author Type: Completions Engineer Filed: 01/17/15 3235 Date of Service: 01/17/151514 Status: Signed Dairy Department Manager: PHUONG Sandhu (Completions Engineer) 01/17/15 1500 Discharge Planning Evaluation Admitting Diagnosis Near syncope, elevated tropinin, non-stemi, CKD Anticipated Disposition Facility Type assisted facility Medicare Important Message (MEREDITH) Given [facility] Facility Other (comment) ([facility]) TRUSS PULLER HELPER met with Pt for discharge planning, on board with going to [facility] when medically ready. TRUSS PULLER HELPER p/c to Jus at [facility] - will accept Pt when medically ready. [facility] (73 miles) [address] [place], [place] Sleep Lab Technologist: Will DCP: [facility] Transportation: [facility] Facility Van - Sleep Lab Technologist: Will Medicare important message signed and copy in chart LUIS FOUNTAIN, Medical Assistant Ob Gyn [phone] cell Rosangela Zavala MD - 01/17/2015 1:11 PM PDT Progress Notes by Rosangela Deras MD at 01/17/15 1311 Author: Rosangela Deras MD Service: Infectious Disease Author Type: Physician Filed: 01/17/15 8168 Date of Service: 01/17/15 1311 Status: Signed Dairy Department Manager: Rosangela Deras MD (Physician) [facility] Service: Infectious Disease Progress Note Hospital [...] vomiting and diarrhea. Had initially presented to [facility] in [place] with similar complaints. Was foun d to have an elevated troponin. She was mainly admitted as a non-STEMI. Found to have a leuk ocytosis. Since patient is immunocompromised, she was started empirically on IV ceftriaxone. Chest x-ray showed no infiltrate. Patient denies any recent fevers or chills. She went to [facility] mainly becau se of syncope. Prior [...] extraluminal fluid collection abdomen pelvis without contrast [[id number]] Impression 1. Hypoinflated chest, but no evident infiltrate chest 1 view [[id number]] Impression 1. Indication for study and thus [...] dose adjustment Code Status: Full Code ROSANGELA DERAS MD 01/17/2015 Sander, Elgin Rahman MD - 01/16/2015 9:28 PM PDTFormatting of this note might be different from the or iginal. Progress Notes by Juju Riggins MD at 01/16/152127 Author: Juju Riggins MD Service: Cardiology Author Type: Physician Filed: 01/16/152137 Date of Service: 01/16/152127 Status: Signed Dairy Department Manager: Juju Riggins MD (Physician) [facility] Service: Cardiology Progress Note Hospital Day: [...] Case Management by PHUONG Sandhu at 01/16/15 1643 Author: PHUONG Sandhu Service: (none) Author Type: Completions Engineer Filed: 01/16/15 1646 Date of Service: 01/16/15 164 Status: Signed Dairy Department Manager: PHUONG Sandhu (Completions Engineer) 01/16/15 1600 Discharge Planning Evaluation Admitting Diagnosis Near syncope, elevated tropinin, non-stemi, CKD Anticipated Disposition Facility Type assisted facility [facility] Other (comment) ([facility]) PHUONG received p/c from Will, admissions at [facility], states they are willi ng to accept Pt to their [facility] Facility, states their house physician will not pre scribe Methadone. Will states she will start authorization process with [employer] who is Managing the Medicare benefits. Will states the first 20 days are covered at 100% then day 21 will be $100.00 a day. DCP: [facility] or Home LUIS FOUNTAIN,Medical Assistant Ob Gyn [phone] cell Jose Maria Grimes MD - 01/16/2015 11:29 AM PDTFormatting of this note might be different from armando tellez original. Progress Notes by Jose Maria Espinal MD at 01/16/15 1129 Author: Jose Maria Espinal MD Service: Hospitalist Author Type: Physician Filed: 01/17/15 1149 Date of Service: 01/16/15 1129 Status: Signed Dairy Department Manager: Jose Maria Espinal MD (Physician) Related Notes: Original Note by Jose Maria Espinal MD (Physician) filed at 01/16/15 1137 [facility] Service: Hospitalist Progress Note Pt: Cole Petty AGE/SEX: 69 y.o. female : 1945 ROOM: 45/4445-1 History of Present Illness: " The patient [...] who called EMS. Patient was taken to [facility] in [place]. Susie ent was noted to have a [...] Patient had borderline blood pressure. While at [facility] with systolic in the low [...] CT done several days ago while in [place]. She also stat es that her vomiting and diarrhea have significantly improved. She denies any fevers, hemat emesis, melena, bright red blood per rectum, hematuria, dysuria, she denies any leg pain or swelling. No palpitations. She states she does have a history of "kidney disease" and was told that it was secondary to cyclosporine. However, she is not seen kidney specialist [facility] e her liver transplant.".....per admitting MD/Dr. Weathers. TODAY'S DATE: 01/16/2015 Hospital Day: LOS: 2 [...] as n oted. I urged the staff development coordinator rn to introduce a hat so that sample can be obtained. The case was d iscussed with Dr. Ramey with regards to the patient's abnormal colon appearance in the CT of the abdomen and pelvis in the area of splenic flexure. We asked Dr. Ramey to evaluate whether or not colonoscopy would be appropriate for further evaluation. Ms. Petty had an episode of chest pain lasting [...] So far, blood cultures remain negative. Bill Petty has been adherent to her immunosuppressive therapy [...] behavior is normal. LABS: Recent Labs Lab 01/16/15 0321 01/15/15 0632 01/14/15 1548 WBC 10.55 13.11* 16.19* HGB 11.6 11.2* 14.6 HCT 34.5 34.4 42.7 PLT 144* 160 209 NEUTOPHILPCT 37.99 50.65 -- MONOPCT 11.24 9.60 -- Recent Labs Lab 01/16/15 0321 01/15/15 0632 01/14/15 1548 NA 138 143 140 [...] contrast. Prior study for comparison: None FINDINGS: Train Attendant 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 deg enerative changes [...] Cardiac Adult Complete 01/15/2015 Patient Name: COLE PETTY Date of : 1945 Performing Physician: Gil [...] LA/Ao: 1.57 D-E Excursion: 2.11 cm E-F [place]: 0.09 m/s EPSS: 0.48 cm HR: 77.41 [...] TV A Billy: 0.66 m/s TV Dec [place]: 4.36 m/s2 TV Dec Time: 184.41 ms TV E Billy: 0.80 m/s TV E/A Rat io: 1.21 Retort Setter: NEDRA Authenticated by: Gil Coronel MD Report [...] medical therapy. Appreciate Dr. Riggins's recommendations and lele negrete. Question remains whether or not the patient [...] AM PDT Therapy Progress Note by Natalio Benito PT at 01/16/15 1102 Author: Natalio Benito PT Service: (none) Author Type: Physical Therapist Filed: 01/16/15 1220 Date of Service: 01/16/15 1102 Status: Signed Dairy Department Manager: Natalio Benito PT (Physical Therapist) 01/16/15 1102 PT Last Visit PT Received On 01/16/15 Reason for Treatment Deconditioning;Other (comment) (NSTEMI; Syncope) Requires PT Follow Up Awaiting tx order Follow up PT Only? No PT Eval/Reassessment Date 01/16/15 Assistance Required 1 person Senior Engineer Needed No Home Environment Type of Home Apartment ground level Home Exterior Layout Entry steps none Home Interior Layout Lives on main level with bedroom/bathroom Bathroom Shower/Tub Tub/shower unit Bathroom Toilet Standard Bathroom Equipment Shower stool;Grab bars in shower/bath;Grab bars outside of shower/bath Bathroom Accessibility Other (Comment) (Small bathroom) Home Equipment Walker 4 wheeled;Cane single point Prior Function Level of Stevens Modified independent with functional mobility;Modified independent wi [...] (sitting in recliner w/ call light and CESSATION SYSTEMS OUTREACH SPECIALIST present) Restraints Initially in Place No [...] Eval/Reassessment Date 01/16/15 Assistance Required 1 person Senior Engineer Needed No Precautions Other Precautions Fall Risk [...] support. Patient in the recli ner w/ CESSATION SYSTEMS OUTREACH SPECIALIST present at end of session, no [...] (sitting in recliner w/ call light and CESSATION SYSTEMS OUTREACH SPECIALIST present) Restraints Initially in Place No [...] Patient was in agreement with this assessment. GRACIASuNupur ferrari MD - 01/16/2015 10:45 AM PDT Progress Notes by Nupur Tadeo MD at 01/16/15 1045 Author: Nupur Tadeo MD Service: Infectious Disease Author Type: Physician Filed: 01/16/15 1257 Date of Service: 01/16/15 1045 Status: Signed Dairy Department Manager: Nupur Tadeo MD (Physician) [facility] Service: Infectious Disease Progress Note Hospital [...] diarrhea. Had initially presented to [facility] in [place] with similar complaints. Was found to have an elevated troponin . She was mainly admitted as a non-STEMI. Found to have a leukocytosis. Since patient is imm unocompromised, she was started empirically on IV ceftriaxone. Chest x-ray showed no infiltrate. Patient denies any recent fevers or chills. She went to [facility] mainly becau se of syncope. Prior [...] (36.9 C)] 97.7 F (36.5 C) (01/16 0743) BP: (137-194)/(65-92) 173/92 mmHg (08/27 0743) Heart Rate: [80-99] 87 (01/16 743) Resp: [16-18] 18 (01/16 743) SpO2: [96 %-99 %] 98 % (01/16 743) Weight: [89.5 kg (197 lb 5 oz)] 89.5 kg (197 lb 5 oz) (01/16 033) Vitals reviewed, nontoxic afebrile appears comfortable and [...] from gastroenterology. Continue ceftriaxone for now. Dr Deras Will assume ID service from tomorrow. Code Status: Full Code Nupur Tadeo MD 01/16/2015 onversio n Transaction, Provider Unknown - 01/16/2015 10:30 AM PDTFormatting of this note might be di fferent from the original. Case Management by PHUONG Sandhu at 01/16/15 1030 Author: PHUONG Sandhu Service: (none) Author Type: Completions Engineer Filed: 01/16/15 1042 Date of Service: 01/16/15 1030 Status: Signed Dairy Department Manager: PHUONG Sandhu (Completions Engineer) 01/16/15 1000 Discharge Planning Evaluation Admitting Diagnosis Near syncope, elevated tropinin, non-stemi, CKD Anticipated Disposition Facility Type assisted facility TRUSS PULLER HELPER met with Pt and discussed discharge planning, states she has concerns returning home at this time, as Pt resides alone. TRUSS PULLER HELPER discussed rehab options, SNF vs Home Health vs Outpatient PT. Pt states her sister (Annie Tipton [phone] cell) assists with IADLs as Pt does not polo ve. Pt states she resides alone and has been doing ADLs on her own. Pt states she uses a 4WW with seat at home, then uses a cane when out of the home, stated, "I am a little vain" abou t using the 4WW in public. Pt is interested in [facility], due to close proximity to her home. TRUSS PULLER HELPER faxe d SNF referral. Pt is a 69 y.o. single female here for NSTEMI. Patient's PCP is: K[facility] OSORIO Patient's insurance:Medicare / ODS Health Plan - [employer] Coverage concerns: None at this time Medication coverage/concerns: None at this time Community resources utilized / needed: SNF Assistance in transportation: Pt sister or SNF facility van Identification of any specific education / training: Pending clinical course Barriers to Discharge / Alternative housing needed: May need SNF Anticipated DCP: Pending placement at [facility] [place] LUIS FOUNTAIN, Medical Assistant Ob Gyn [phone] cell riLuisito bello - 01/16/2015 9:12 AM PDTFormatting of this note might be different from the or iginal. Progress Notes by Luisito Garcia MD at 01/16/15911 Author: Luisito Garcia MD Service: Nephrology Author Type: Physician Filed: 01/20/15 1907 Date of Service: 01/16/15911 Status: Signed Dairy Department Manager: Luisito Garcia MD (Physician) [facility] Service: NEPHROLOGY PROGRESS Note Cole Petty 69 y.o. [id number] female [facility] Day: LOS: 2 days The patient is a 69 y.o. 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 Scheduled Medications azaTHIOprine 50 mg Oral Daily [...] K 2.8* 01/14/2015 S/P LIVER TXP AT [facility] IN 1991 IMMUNOSUPPRESSION ON CYCLOSPORIN 75 MG BID ON AZA 50 MG DAILY HYPOPHOSPHATEMIA IMPROVING REPLACE TO KEEP P GREATER THAN 2.5 REPEAT P LEVEL IN AM Lab Results Component Value Date PHOS 2.0* 01/16/2015 PHOS 1.5* 01/15/2015 PHOS 1.4* 01/14/2015 Abdominal pain / LEUCOCYTOSIS PER HOSPITALIST CT SCAN WITH ORAL CONTRAST DONE, PLAN FOR COLONOSCOPY Possible UTI pyuria on her urinalysis from [facility] on ceftriaxone CASE DISCUSSED IN DETAIL WITH PATIENT/ Care team / HOSPITALIST, ANSWERS ALL QUESTIONS IN DE TAIL, VERBALIZES UNDERSTANDING WILL SIGN OFF, CALL US PRN FOR ANY QUESTIONS, THANKS FOR THE CONSULT LUISITO GARCIA MD 01/16/2015 K[facility] OSORIO onversion Transactio n, Provider Unknown - 01/16/2015 5:06 AM PDT Nurse Progress Note by Michelle Paulson RN at 01/16/15 0505 Author: Michelle Paulson RN Service: (none) Author Type: Registered Nurse Filed: 01/16/15 0507 Date of Service: 01/16/15505 Status: Signed Dairy Department Manager: Michelle Paulson RN (Registered Nurse) Patient resting quietly t/o shift. High CIWA this shift =4. Patient c/o generalized pain, treated with PRN [place] per orders. Patient observed to be sle eping, following PRN medication and repositioning. Patient continues to be NSR-ST on tele. Vitals stable. Will continue to monitor patient. ose Maria Black MD - 01/15/2015 3:19 PM PDTFormatting of this note might be different from armando tellez original. Progress Notes by Jose Maria Espinal MD at 01/15/151518 Author: Jose Maria Espinal MD Service: Hospitalist Author Type: Physician Filed: 01/16/15924 Date of Service: 01/15/151518 Status: Signed Dairy Department Manager: Jose Maria Espinal MD (Physician) Related Notes: Original Note by Jose Maria Espinal MD (Physician) filed at 01/15/151939 [facility] Service: Hospitalist Progress Note Pt: Cole Petty AGE/SEX: 69 y.o. female : 1945 ROOM: [address] [place] [address] History of Present Illness: " The patient [...] who called EMS. Patient was taken to [facility] in [place]. Susie ent was noted to have a [...] Patient had borderline blood pressure. While at [facility] with systolic in the low [...] CT done several days ago while in [place]. She also stat es that her vomiting and diarrhea have significantly improved. She denies any fevers, hemat emesis, melena, bright red blood per rectum, hematuria, dysuria, she denies any leg pain or swelling. No palpitations. She states she does have a history of "kidney disease" and was told that it was secondary to cyclosporine. However, she is not seen kidney specialist [facility] e her liver transplant.".....per admitting MD/Dr. Weathers. TODAY'S DATE: 01/15/2015 Hospital Day: LOS: 1 [...] 81 16 97 % - - 01/14/15 2154 - - - - - - - 89.6 kg (197 lb 8.5 oz) 01/14/15 2138 138/74 mmHg 98.4 F (36.9 C) Oral 79 18 94 % 1.6 m (5' 3") 89.6 kg (197 lb 8.5 oz) 01/14/152003 102/64 mmHg 99.3 F (37.4 C) Oral 87 - 97 % - - 01/14/15 1808 96/51 mmHg 99 F (37.2 C) Oral 79 14 98 % - - 01/14/15 1705 - - - - - - - [...] contrast. Prior study for comparison: None FINDINGS: Train Attendant 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 deg enerative changes [...] Cardiac Adult Complete 01/15/2015 Patient Name: COLE PETTY Date of : 1945 Performing Physician: Gil [...] LA/Ao: 1.57 D-E [place]cursion: 2.11 cm E-F [place]: 0.09 m/s EPSS: 0.48 cm HR: 77.41 [...] TV A Billy: 0.66 m/s TV Dec [place]: 4.36 m/s2 TV Dec Time: 184.41 ms TV E Billy: 0.80 m/s TV E/A Rat io: 1.21 Retort Setter: NEDRA Authenticated by: Gil Coronle MD Report Date/Time: 01-15 09:12:05 01/15/2015 1. [...] Elevated troponins, question underlying non ST elevation ME. Continue current medical th erapy. I appreciate [...] Maria Espinal MD 01/15/2015 3:19 PM onversion Transluis ction, Provider Unknown - 01/15/2015 2:30 PM PDT Progress Notes by Ronda Michaels RD at 01/15/15 1430 Author: Ronda Michaels RD Service: (none) Author Type: Registered Dietitian Filed: 01/15/15 1439 Date of Service: 01/15/151429 Status: Signed Dairy Department Manager: Ronda Michaels RD (Registered Dietitian) 01/15/15 1348 Subjective Timepoint Admit Pt c/o In to [...] Estimated Energy Needs Total Energy Estimated Needs 7785-3663 kcal Method for Estimating Needs 25-30 kcal/kg [...] the or iginal. Progress Notes by Luisito Garcia MD at 01/15/15 1043 Author: Luisito Garcia MD Service: Nephrology Author Type: Physician Filed: 01/20/15 190 Date of Service: 01/15/151042 Status: Signed Dairy Department Manager: Luisito Garcia MD (Physician) [facility] Service: NEPHROLOGY PROGRESS Note Cole Petty 69 y.o. [id number] female [facility] Day: LOS: 1 day The patient is a 69 y.o. 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 See ED Record for Physician Inter pretation. Confirmed by MUSE READ ONLY, -COMPUTER ([id number]), online editor Shala Gramajo ([id number]) on 01/14/2015 11:17 [...] K 4.4 11/15/2014 S/P LIVER TXP AT [facility] IN 1991 IMMUNOSUPPRESSION ON CYCLOSPORIN 75 MG BID ON AZA 50 MG DAILY HYPOPHOSPHATEMIA REPLACE TO KEEP P GREATER THAN 2.5 REPEAT P LEVEL IN AM Lab Results Component Value Date PHOS 1.5* 01/15/2015 PHOS 1.4* 01/14/2015 Abdominal pain / LEUCOCYTOSIS PER HOSPITALIST CT SCAN WITH ORAL CONTRAST DONE Possible UTI pyuria on her urinalysis from [facility] on ceftriaxone CASE DISCUSSED IN DETAIL WITH PATIENT/ Care team / HOSPITALIST, ANSWERS ALL QUESTIONS IN D ETAIL, VERBALIZES UNDERSTANDING LUISITO GARCIA MD 01/15/2015 KI OSORIO onversion Transactio n, Provider Unknown - 01/14/2015 11:16 PM PDT Nurse Progress Note by Giovanna Bejarano RN at 01/14/152315 Author: Giovanna Bejarano RN Service: (none) Author Type: Registered Nurse Filed: 01/14/152316 Date of Service: 01/14/152315 Status: Signed Dairy Department Manager: Giovanna Bejarano RN (Registered Nurse) Called Dr. Riggins to clarify if heparin gtt should be continued after CT results. Order rec eived not to restart heparin drip at this time. azz Swann RPH - 01/14/2015 10:27 PM PDTFormatting of this note might be different from t he original. Progress Notes by Jazz Rahman RPH at 01/14/152226 Author: Jazz Rahman RPH Service: (none) Author Type: Pharmacist Filed: 01/14/152226 Date of Service: 01/14/152226 Status: Signed Dairy Department Manager: Jazz Rahman RPH (Pharmacist) Clinical Pharmacy Note - Renal Dose Adjustment Cole Petty 69 y.o. female Ht Readings from Last 1 Encounters: 01/14/15 1.6 m (5' 3") Wt Readings from Last 1 Encounters: 01/14/15 89.6 kg (197 lb 8.5 oz) CREATININE Date Value Ref Range Status 01/14/2015 2.4* 0.50 - 1.00 mg/dL Final Comment: Testing performed at [facility];[address] [place] [address];[place] [address] CREATININE: 2.4 mg/dL ABNORMAL (01/14/15 1548) Estimated creatinine clearance - 23.5 mL/min Pharmacy to renally adjust medications per Dr. Weathers Plan: No medications will require renal dose adjustment based on patient's current estimate d Crcl. Pharmacy will continue to follow and adjust as appropriate. Pharmacist: Jazz Rahman 01/14/2015 10:26 PM onversio n Transaction, Provider Unknown - 01/14/2015 5:34 PM PDTFormatting of this note might be di fferent from the original. Case Management by PHUONG Crump LICSW at 01/14/15 0150 Author: PHUONG Crump LICSW Service: (none) Author Type: Medical Assistant Ob Gyn Filed: 01/14/159 Date of Service: 01/14/151733 Status: Signed Dairy Department Manager: PHUONG Crump LICSW (Medical Assistant Ob Gyn) 01/14/152 Discharge Planning Evaluation Admitting Diagnosis Near syncope, elevated tropinin, non-stemi, CKD Readmission No Living Arrangements Alone Support Systems Family members;Friends/neighbors Type of Residence Private residence House type Apartment Bathrooms on 1st Floor 1-Full Independent with ADL's Yes Independent with Mobility No-comment Home Care Services No Mental Status Oriented Power of Drapery Installer No;Other (comment) Resources Transportation issues No Prescription Plan Yes Name of Pharmacy [facility] in [place], [place] Previous home health equipment Yes Anticipated Disposition Facility Type Home Met with patient and discussed discharge planning, Pt is a 69 y.o., female who reports dru giron alone. Patient reports her sister, Annie Tipton, will transport her home a t discharge. Patient's PCP is: KI OSORIO (General) Patient's insurance:b ODS Health Plan & Medicare Coverage concerns: Medication coverage/concerns: [facility] Delivery: Community resources utilized / needed: TBD Assistance in transportation: Sister to transport Identification of any specific education / training:TBD Barriers to Discharge / Alternative housing needed: No Anticipated DCP: Home. Annie Pineda docume nted in this encounter H&P Notes Jennifer Weathers MD - 01/14/2015 5:33 PM PDTFormatting of this note might be different from t he original. H&P by Jennifer Weathers MD at 01/14/151732 Author: Jennifer Weathers MD Service: Hospitalist Author Type: Physician Filed: 01/14/151929 Date of Service: 01/14/151732 Status: Signed Dairy Department Manager: Jennifer Weathers MD (Physician) [facility] Service: Hospitalist Admission History & Physical Pt: Cole Petty AGE/SEX: 69 y.o. female ROOM: 11/26 PCP: KI OSORIO (General) : 1945 TODAY'S DATE: 01/14/2015 Date of Admission: 01/14/2015 Chief Complaint: Weakness, near syncope History of Present Illness: The patient is a 69 y.o. 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 Patient states that her doctor "cut her off cold turkey" of her methadone 3 weeks ago. Sh e states that since that time she has been having vomiting 8-10 episodes per day, diarrhea, 8-10 episodes per day, abdominal pain, poor appetite, generalized myalgias, and insomnia. S he states that the vomiting and diarrhea have improved. However, today she was walking acro ss her apartment when she "collapsed. She states that she felt lightheaded prior to this, a nd sweaty. She did not lose consciousness. She states that she called out for her neighbor who called EMS. Patient was taken to [facility] in [place]. Patient was not ed to have a white count of 12,000, hemoglobin of 14, hematocrit 44, platelet count 190, glu cose 145, creatinine of 2.4, BUN of 28, potassium of 3.2, albumin of 3.4, CO2 25, calcium 8. 6. Her troponin was borderline elevated at 0.76, patient had a lactic acid of 1.4. Twelve- lead ECG showed normal sinus rhythm with rate of 75 and antrolateral T-wave inversion. Susie ent was transferred here for higher level of care. Patient had borderline blood pressure. While at [facility] with systolic in the low 90s. Heart rate was in the 70s. Patient's previous creatinine was 1.38 on 11/15/14 and 1.25 on 06/04/13. Upon arrival here, patient was found to have a troponin which was elevated to 0.55. Twel ve-lead ECG was unchanged. Patient was noted to have a creatinine of 2.4 here and a white c ount of 16,000, here as well. ED physician and spoke with cardiology and patient was starte d on heparin for non-STEMI. Patient denies any chest pain, shortness of breath, headache. She states that she continu es to have abdominal pain, which has been present for 3 weeks but is improved. She states t hat she had abdominal CT done several days ago while in [place]. She also states that her vomiting and diarrhea have significantly improved. She denies any fevers, hematemesis, param tamika, bright red blood per rectum, hematuria, dysuria, she denies any leg pain or swelling. No palpitations. She states she does have a history of "kidney disease" and was told that i t was secondary to cyclosporine. However, she is not seen kidney specialist since her liver transplant. PMHx: Past Medical History Diagnosis Date Stroke (HCC) Hyperlipidemia Hypertension PSHx: Past Surgical History Procedure Laterality Date Liver transplant 192 Gallbladder surgery 1991 Splenectomy Prior To admission Meds: Prior to Admission medications Medication Sig Start Date End Date Taking? Authorizing Provider azaTHIOprine (IMURAN) 50 MG tablet Take 50 mg by mouth daily. Historical Provider Cholecalciferol 2000 UNITS CAPS Take 2,000 Units by mouth daily. Historical Provider cycloSPORINE (SANDIMMUNE) 25 MG capsule Take 75 mg by mouth 2 (two) times daily. Histori laith Provider fluticasone (FLONASE) 50 MCG/ACT nasal 1 spray by Each Nare route daily. Historical Prov ider gabapentin (NEURONTIN) 400 MG capsule Take 400 mg by mouth 4 (four) times daily. Histori laith Provider HYDROcodone-acetaminophen (NORCO) 5-325 MG per tablet Take 1 tablet by mouth every 6 (six) hours as needed. Historical Provider levothyroxine (SYNTHROID, LEVOTHROID) 125 MCG tablet Take 125 mcg by mouth every morning be fore breakfast. Historical Provider metoprolol (LOPRESSOR) 100 MG tablet Take 100 mg by mouth 2 (two) times daily. Historica l Provider pravastatin (PRAVACHOL) 10 MG tablet Take 10 mg by mouth nightly. Historical Provider vitamin B-12 (CYANOCOBALAMIN) 1000 MCG tablet Take 1,000 mcg by mouth daily. Historical Provider methadone (DOLOPHINE) 10 MG tablet Take 10 mg by mouth 2 (two) times daily. 01/14/15 Histo rical Provider Allergies: Allergies Allergen Reactions Codeine Nausea and Vomiting Family Hx: Family History Problem Relation Age of Onset Stroke Brother Kidney disease Neg Hx Diabetes Father Social Hx: History Substance Use Topics Smoking status: Never Smoker Smokeless tobacco: Not on file Alcohol Use: 0.0 oz/week 0 Not specified per week Comment: beer / night Review of Systems: Review of Systems Constitutional: Positive for malaise/fatigue and diaphoresis. Negative for fever, chills an d weight loss. HENT: Negative. Negative for nosebleeds. Eyes: Negative. Negative for blurred vision, double vision and photophobia. Respiratory: Negative. Negative for cough, hemoptysis, sputum production and shortness of breath. Cardiovascular: Negative for chest pain, palpitations, orthopnea, claudication, leg swellin g and PND. Gastrointestinal: Positive for nausea, vomiting, abdominal pain and diarrhea. Negative for constipation, blood in stool and melena. Genitourinary: Negative for dysuria, hematuria and flank pain. Musculoskeletal: Positive for myalgias, back pain and falls. Negative for neck pain. Skin: Negative. Negative for rash. Neurological: Positive for dizziness and weakness. Negative for tingling, tremors, sensory change, speech change, focal weakness and seizures. Endo/Heme/Allergies: Negative. Psychiatric/Behavioral: Negative. Physical Exam: BP 96/51 mmHg | Pulse 79 | Temp(Src) 99 F (37.2 C) (Oral) | Resp 14 | Wt 88.451 kg (195 lb) | SpO2 98% Physical Exam Constitutional: She is oriented to person, place, and time. She appears well-developed and well-nourished. No distress. HENT: Head: Normocephalic and atraumatic. Nose: Nose normal. Mouth/Throat: Oropharynx is clear and moist. Dry mucous membranes Eyes: Conjunctivae and EOM are normal. Pupils are equal, round, and reactive to light. Righ t eye exhibits no discharge. Left eye exhibits no discharge. No scleral icterus. Neck: Normal range of motion. Neck supple. No JVD present. No tracheal deviation present. N o thyromegaly present. Cardiovascular: Normal rate, regular rhythm, normal heart sounds and intact distal pulses. Exam reveals no gallop and no friction rub. No murmur heard. Pulmonary/Chest: Effort normal and breath sounds normal. No stridor. No respiratory distres s. She has no wheezes. She has no rales. She exhibits no tenderness. Abdominal: Soft. Bowel sounds are normal. She exhibits no mass. There is tenderness. There is no guarding. Tenderness palpation in the epigastrium. No rebound or guarding Musculoskeletal: She exhibits edema. She exhibits no tenderness. Trace pitting pedal edema, symmetric bilaterally Lymphadenopathy: She has no cervical adenopathy. Neurological: She is alert and oriented to person, place, and time. She has normal reflexes . She displays normal reflexes. No cranial nerve deficit. She exhibits normal muscle tone. C oordination normal. Skin: Skin is warm and dry. No rash noted. She is not diaphoretic. No erythema. No pallor. Very dry skin Nursing note and vitals reviewed. Data: Admission on 01/14/2015 Component Date Value Ref Range Status TROPONIN I 01/14/2015 0.555* 0.00 - 0.10 ng/mL Final WBC 01/14/2015 16.19* 3.80 - 11.00 K/uL Final RBC 01/14/2015 4.17 3.70 - 5.10 M/uL Final HGB 01/14/2015 14.6 11.3 - 15.5 g/dL Final HCT 01/14/2015 42.7 34.0 - 46.0 % Final MCV 01/14/2015 102.3* 80.0 - 100.0 fl Final MCH 01/14/2015 35.0* 27.0 - 34.0 pg Final MCHC 01/14/2015 34.2 32.0 - 35.5 g/dL Final RDW SD 01/14/2015 49.9 37 - 53 fl Final PLT 01/14/2015 209 150 - 400 K/uL Final MPV 01/14/2015 11.1 Final MORPHOLOGY 01/14/2015 1+ Final DIFF TYPE 01/14/2015 MANUAL Final Neutrophils Manual 01/14/2015 58 Final Lymphocytes Manual 01/14/2015 32 Final Monocytes Manual 01/14/2015 9 Final Eosinophils Manual 01/14/2015 1 Final Neutrophils Absolute 01/14/2015 9.39* 1.90 - 7.40 K/uL Final Lymphocytes Absolute 01/14/2015 5.18* 1.00 - 3.90 K/uL Final Monocytes Absolute 01/14/2015 1.46* 0.00 - 0.80 K/uL Final Eosinophils Absolute 01/14/2015 0.16 0.00 - 0.50 K/uL Final SODIUM 01/14/2015 140 135 - 143 mmol/L Final POTASSIUM 01/14/2015 2.8* 3.5 - 4.9 mmol/L Final CHLORIDE 01/14/2015 100 99 - 109 mmol/L Final CO2 01/14/2015 29 23 - 32 mmol/L Final ANION GAP AGAP 01/14/2015 14 5 - 20 mmol/L Final GLUCOSE 01/14/2015 107* 65 - 99 mg/dL Final BUN 01/14/2015 28* 8 - 25 mg/dL Final CREATININE 01/14/2015 2.4* 0.50 - 1.00 mg/dL Final BUN/CREAT 01/14/2015 12 Final CALCIUM 01/14/2015 8.1* 8.5 - 10.5 mg/dL Final TOTAL PROTEIN 01/14/2015 9.3* 6.3 - 8.2 g/dL Final Albumin 01/14/2015 3.3 3.3 - 4.8 g/dL Final GLOBULIN 01/14/2015 6.0* 1.3 - 4.9 g/dL Final A/G 01/14/2015 0.5* 1.0 - 2.4 Final TBIL 01/14/2015 0.4 0.1 - 1.5 mg/dL Final ALK PHOS 01/14/2015 129* 35 - 115 U/L Final AST 01/14/2015 39 10 - 45 U/L Final ALT 01/14/2015 38 10 - 65 U/L Final EGFR 01/14/2015 21* >60 mL/min/1.73m2 Final CPK 01/14/2015 151 30 - 240 U/L Final INR 01/14/2015 1.3 Final APTT 01/14/2015 26 23 - 32 seconds Final MMB 01/14/2015 3.9* 0.5 - 3.6 ng/mL Final CK-MB Index 01/14/2015 2.6 Final ] IMAGING: No results found. EKG: Normal sinus rhythm with rate of 79, T-wave inversion V1 through V4. No change from p revious ECG from [facility] today at 11:19 AM Problem List: Principal Problem: NSTEMI (non-ST elevated myocardial infarction) (HCC) Active Problems: ZULAY (acute kidney injury) (HCC) Liver replaced by transplant (HCC) Essential hypertension, benign CKD (chronic kidney disease), stage III Hypokalemia Immunosuppression (HCC) Leukocytosis, unspecified Macrocytosis without anemia Assessment and Plan: Elevated troponin/non-STEMI -Cardiology consulted -hold heparin until CT is obtained as if the patient has an ongoing intra-abdominal process or surgical abdominal process would not want to have the patient on heparin at this time. However, if her CT comes back unremarkable, would recommend resuming heparin. This was disc ussed with cardiology -Serial troponin and ECG -Check echo -BNP -Check chest x-ray -Beta jann and statin are held at this moment as patient has blood pressure in the 90s s ystolic range and it is unclear if patient may have pancreatitis at this time as the amylase , lipase and CT are pending. Would consider starting these , if patient has no evidence of pancreatitis, liver injury, and improvement in blood pressure ZULAY on chronic kidney disease/hypokalemia -Patient has had significant vomiting and diarrhea and most likely her acute kidney injury is secondary to volume depletion. Patient, however , patient is also on cyclosporine and az athioprine for her liver transplant. Additionally, patient reports that she had abdominal C T done in [place] 2-3 days ago she may have received IV contrast with this. She also take s chronic analgesic medication Her baseline creatinine is approximately 1.3. Nephrology con sulted. Patient is also hypokalemic. Will treat with judicious potassium replacement. Flu id replacement may be difficult secondary to risk of CHF secondary to her elevated troponin/ non-STEMI. We will monitor closely -Normal saline 1 L IV bolus -IV fluid at 150 mL's per hour -Replace K -Monitor electrolyte MG/K/phosphate/uric acid Leukocytosis/immunocompromise -Check blood culture 2, blood cultures 2 were sent at [facility] -Urine culture -Sedimentation rate, CRP, pro-calcitonin - ID consulted - Check Lactic acid -Check MRSA PCR, - check C. difficile, abdomen CT pending -Ceftriaxone iv . Discussed with ID, will cover for intra-abdominal process until workup i s completed Abdominal pain , unknown etiology -Check abdominal CT with oral contrast only, no IV contrast secondary to renal impairment. Would consider multiple etiologies, codeine pancreatitis given the location of her pain. T his may be all secondary to narcotic withdrawal, but would also consider possible enteritis/ colitis given her vomiting and diarrhea or other intra-abdominal process as patient is also immunocompromised. Patient has hepatic transplant and on clinical examination does not have evidence of ascites . However, CT again will be helpful. -We will obtain records from [facility] regarding her previous abdominal CT Possible UTI -Patient had pyuria on her urinalysis from [facility]. She would be well covered on cef triaxone htn - will hold betablocker due to hypotension Liver transplant -Monitor LFTs/INR -Continue azathioprine and cyclosporine Macrocytosis -Patient reports that she drinks 1 beer per day -We will check B12, folate -[facility] protocol -Thiamine replacement DVT prophylaxis -Mechanical until no evidence of surgical abdomen. Then patient will resume on IV heparin for non-STEMI. If no evidence of intra-abdominal surgical problem and should be well covere d for DVT prophylaxis Patient's old records and labs were reviewed in detail and summarized. Code Status: No Order Primary Care Physician: KI OSORIO (General) Jennifer Weathers MD 01/14/2015 7:30 PM documented in this enco unter Procedure Notes Lisa Cheng ARNP - 01/18/2015 2:01 PM PDTFormatting of this note might be different f rom the original. Procedures by PATRIA Garcia at 01/18/15 1401 Author: PATRIA Garcia Service: Vascular Surgery Author Type: Advanced Registered N kyleee Practitioner Filed: 01/18/15 140 Date of Service: 01/18/151400 Status: Signed Dairy Department Manager: PATRIA Garcia (Advanced Registered Nurse Practitioner) Pre-procedure Diagnoses: 1. Chest pain, unspecified chest pain type [786.50] Post-procedure Diagnoses: 1. Chest pain, unspecified chest pain type [786.50] Procedures: 1. NM MYOCARDIAL PERFUSION SPECT - STRESS AND REST [[id number] (Custom)] [facility] Service: Diagnostic Imaging/Nuclear Medicine Cardiac Stress Test Note Type of Stress Test performed (protocol): Pharmacologic, Lexiscan Benjie protocol time (if applicable): N/A Rhythm changes: none Ectopy: none Symptoms experienced during exam: chest pain "twinges" 2/10 ST/T wave changes: non specific ST segment changes. Difficult to determine due to artifact despite interventions to correct such as lead change, electrode change, and position change . Medications administered: Lexiscan 0.4 mgs Mednez Treadmill Score: N/A PATRIA Garcia 01/18/2015 2:02 PM documented in this encounter Consult Notes Juan Ramey - 01/16/2015 6:33 PM PDT Consults by Juan Ramey MD at 01/16/151832 Author: Juan Ramey MD Service: Gastroenterology Author Type: Physician Filed: 01/22/15 1006 Date of Service: 01/16/151832 Status: Signed Dairy Department Manager: Juan Ramey MD (Physician) Related Notes: Original Note by Juan Ramey MD (Physician) filed at 01/16/152037 Consult Orders: 1. Inpatient consult to GI [[id number]] ordered by Jose Maria Espinal MD at 01/16/15 0910 [facility] Service: Gastroenterology Initial Consult Note Date of Admission: 01/14/2015 Reason for Consultation: diarrhea Requesting Physician: Dr. Espinal History Obtained From: patient CHIEF COMPLAINT: Diarrhea HISTORY OF PRESENT ILLNESS The patient is a 69 y.o. 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 Had a CT s can done in [place] which showed focal thickness of colon on the and ID was on board and Clostridium difficile study was negative and GI was requested to do a colonoscopy. Patie nt never had a screening colonoscopy done in the past. She denied any gross GI bleeding, param tamika, black stool, or fresh blood per rectum. REVIEW OF SYSTEMS ROS obtained from patient. Negative except for pertinent items noted in HPI. Past Medical History Diagnosis Date Stroke (HCC) Hyperlipidemia Hypertension Past Surgical History Procedure Laterality Date Liver transplant 192 Gallbladder surgery 1991 Splenectomy Allergies Allergen Reactions Codeine Nausea and Vomiting Prescriptions prior to admission Medication Sig Dispense Refill Last Dose azaTHIOprine (IMURAN) 50 MG tablet Take 50 mg by mouth daily. Taking Cholecalciferol 2000 UNITS CAPS Take 2,000 Units by mouth daily. Taking cycloSPORINE (SANDIMMUNE) 25 MG capsule Take 75 mg by mouth 2 (two) times daily. Taki ng fluticasone (FLONASE) 50 MCG/ACT nasal 1 spray by Each Nare route daily. Taking gabapentin (NEURONTIN) 400 MG capsule Take 400 mg by mouth 4 (four) times daily. Taki ng HYDROcodone-acetaminophen (NORCO) 5-325 MG per tablet Take 1 tablet by mouth every 6 (s ix) hours as needed. Taking levothyroxine (SYNTHROID, LEVOTHROID) 125 MCG tablet Take 125 mcg by mouth every mornin g before breakfast. Taking metoprolol (LOPRESSOR) 100 MG tablet Take 100 mg by mouth 2 (two) times daily. Taking pravastatin (PRAVACHOL) 10 MG tablet Take 10 mg by mouth nightly. Taking vitamin B-12 (CYANOCOBALAMIN) 1000 MCG tablet Take 1,000 mcg by mouth daily. 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 No Temp: [97.7 F (36.5 C)-98.2 F (36.8 C)] 97.7 F (36.5 C) (01/17 1516) BP: (137-173)/(65-92) 165/89 mmHg (01/17 1516) Heart Rate: [73-99] 73 (01/17 1516) Resp: [18] 18 (01/17 1516) SpO2: [94 %-98 %] 95 % (01/17 1516) Weight: [89.5 kg (197 lb 5 oz)] 89.5 kg (197 lb 5 oz) (01/16 331) Constitutional: She is oriented to person, place, [...] mood and affect. Her behavior is normal. DATA CBC: Lab Results Component Value Date WBC 10.55 01/16/2015 RBC 3.28* 01/16/2015 HGB 11.6 01/16/2015 HCT 34.5 01/16/2015 MCV 105.1* 01/16/2015 MCH 35.3* 01/16/2015 MCHC 33.5 01/16/2015 RDW 50.8 01/16/2015 PLT 144* 01/16/2015 MPV 13.0 01/16/2015 DIFFTYPE AUTOMATED 01/16/2015 CMP: Lab Results Component Value Date NA 138 01/16/2015 K 3.1* 01/16/2015 CL 104 01/16/2015 CO2 22* 01/16/2015 ANIONGAP 15 01/16/2015 GLUF 82 01/16/2015 BUN 13 01/16/2015 CREATININE 1.01* 01/16/2015 BCR 13 01/16/2015 CA 7.7* 01/16/2015 CA 9.1 11/15/2014 PROT 7.1 01/16/2015 ALB 3.2* 01/16/2015 GLOB 3.9 01/16/2015 BILITOT 0.4 01/16/2015 ALP 76 01/16/2015 AST 26 01/16/2015 ALT 19 01/16/2015 EGFR 58* 01/16/2015 Hepatic Function Panel: Lab Results Component Value Date PROT 7.1 01/16/2015 ALB 3.2* 01/16/2015 BILITOT 0.4 01/16/2015 ALP 76 01/16/2015 AST 26 01/16/2015 ALT 19 01/16/2015 PT/INR: Lab Results Component Value Date INR 1.3 01/14/2015 PROBLEM LIST Principal Problem: NSTEMI (non-ST elevated myocardial infarction) (HCC) Active Problems: ZULAY (acute kidney injury) (HCC) Liver replaced by transplant (HCC) Essential hypertension, benign CKD (chronic kidney disease), stage III Hypokalemia Immunosuppression (HCC) Leukocytosis, unspecified Macrocytosis without anemia Hypophosphatemia Other severe protein-calorie malnutrition (HCC) ASSESSMENT & PLAN Patient had diarrhea, abnormal CT scan, on immunosuppressants for over 20 years. Certainly will need to rule out CMV, other opportunistic infection related colitis. Certainly she will also benefit from a colon cancer screening for her age since she never had one. The benefit s and the risks and complications for the procedure explained to patient and she understands well and is willing to proceed with the procedure. Further recommendation will depend on en doscopic findings. At the same time I would recommend checking the CMV IgM and IgG titer. Ot herwise, hydration and supportive care. Code Status: Full Code Primary Care Physician: KI OSORIO Thank you for allowing me to participate in the care of this patient. I have discussed my recommendations with the attending physician. JUAN RAMEY MD 01/16/2015 uresh, Nupur Melendez MD - 10:56 AM PDT Consult* by Nupur Tadeo MD at 01/15/15 1056 Author: Nupur Tadeo MD Service: Infectious Disease Author Type: Physician Filed: 01/15/15 1443 Date of Service: 01/15/15 1056 Status: Signed Dairy Department Manager: Nupur Tadeo MD (Physician) [facility] Service: Infectious Disease Initial Consult Note Date of Admission: 01/14/2015 Reason for Consultation: Leukocytosis Requesting Physician: Dr. Garth Weathers Hospitalist History Obtained From: patient, chart review CHIEF COMPLAINT: Syncope HISTORY OF PRESENT ILLNESS The patient is a 69 y.o. female with significant past medical history of liver transplant, renal insufficiency, dyslipidemia, follows with Dr. Oliva, on methadone for chronic back elena n-abruptly stopped about 3 weeks ago, presented to emergency room yesterday with generalized weakness, vomiting and diarrhea. Had initially presented to [facility] in [place] with similar complaints. Was found to have an elevated troponin. She was mainly admitt ed as a non-STEMI. Found to have a leukocytosis. Since patient is immunocompromised, she was started empirically on IV ceftriaxone. Chest x-ray showed no infiltrate. Patient denies any recent fevers or chills. She went to [facility] mainly becau se of syncope. Prior [...] of exposure to anyone who is sick REVIEW OF SYSTEMS Review of Systems GEN: No fevers ,chills,unexpected significant loss of appetite or loss of weight HEENT: No redness,pain in eyes. No blurred vision. No tinnitus or ear pain.No sore throat o r difficulty swallowing NECK: no stiffness. CHEST: no cough or difficulty breathing . No chest pain or palpitations. ABDOMEN:No pain abdomen . ++ nausea, vomiting and diarrhea-described as 1-2 per day for the last 2-3 weeks about 2 weeks ago-used to have even 5-6 bowel movements per day.. : no dysuria, no hematuria, frequency. PERIPHERIES: no swelling or open wounds. SKIN: no areas of redness, rash or skin breakdown JOINTS: no swelling . No pain on movement other than that with usual arthritis NEURO: no significant headaches, focal weaknesses. PSYCH: No agitation, confusion, insomnia Past Medical History Diagnosis Date Stroke (HCC) Hyperlipidemia Hypertension Past Surgical History Procedure Laterality Date Liver transplant 192 Gallbladder surgery 1991 Splenectomy Allergies Allergen Reactions Codeine Nausea and Vomiting Prescriptions prior to admission Medication Sig Dispense Refill Last Dose azaTHIOprine (IMURAN) 50 MG tablet Take 50 mg by mouth daily. Taking Cholecalciferol 2000 UNITS CAPS Take 2,000 Units by mouth daily. Taking cycloSPORINE (SANDIMMUNE) 25 MG capsule Take 75 mg by mouth 2 (two) times daily. Taki ng fluticasone (FLONASE) 50 MCG/ACT nasal 1 spray by Each Nare route daily. Taking gabapentin (NEURONTIN) 400 MG capsule Take 400 mg by mouth 4 (four) times daily. Taki ng HYDROcodone-acetaminophen (NORCO) 5-325 MG per tablet Take 1 tablet by mouth every 6 (s ix) hours as needed. Taking levothyroxine (SYNTHROID, LEVOTHROID) 125 MCG tablet Take 125 mcg by mouth every mornin g before breakfast. Taking metoprolol (LOPRESSOR) 100 MG tablet Take 100 mg by mouth 2 (two) times daily. Taking pravastatin (PRAVACHOL) 10 MG tablet Take 10 mg by mouth nightly. Taking vitamin B-12 (CYANOCOBALAMIN) 1000 MCG tablet Take 1,000 mcg by mouth daily. 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 No Temp: [98.2 F (36.8 C)-99.7 F (37.6 C)] 98.2 F (36.8 C) (01/15 750) BP: (96-160)/(51-83) 160/83 mmHg (01/15 750) Heart Rate: [78-88] 82 (01/15 750) Resp: [14-18] 16 (01/15 750) SpO2: [94 %-98 %] 97 % (01/15 750) Height: [160 cm (5' 3")] 160 cm (5' 3") (01/14 2138) Weight: [88.451 kg (195 lb)-90.8 kg (200 lb 2.8 oz)] 90.8 kg (200 lb 2.8 oz) (01/15 351) BMI (Calculated): [35.1] 35.1 (01/14 2138) Physical Exam GENERAL: vitals reviewed. Non toxic , afebrile . Appears comfortable and not in any distres s HEENT: conjunctivae normal. No icterus. External ears appear normal. Throat- no thrush or e rythema. NECK: supple . No significant cervical lymphadenopathy LUNGS: normal vesicular sounds . No obvious rales or rhonchi HEART : Normal heart sounds . No significant murmur or rub ABDOMEN: soft, no mass or tenderness . PERIPHERIES: No edema, varicosities or ulcers SKIN: no rash. No areas of cellulitis JOINTS: no swelling or limitation of movement NEURO: no obvious focal deficits . Alert , conscious and oriented PSYCH: mood and affect normal HEME ; No significant bleeding or Clots on exam IV SITE: clean without any obvious purulence DATA CBC: Lab Results Component Value Date WBC 13.11* 01/15/2015 RBC 3.27* 01/15/2015 HGB 11.2* 01/15/2015 HCT 34.4 01/15/2015 MCV 105.2* 01/15/2015 MCH 34.2* 01/15/2015 MCHC 32.5 01/15/2015 RDW 50.3 01/15/2015 PLT 160 01/15/2015 MPV 11.1 01/15/2015 DIFFTYPE AUTOMATED 01/15/2015 WBC: Lab Results Component Value Date WBC 13.11* 01/15/2015 NEUTABSMAN 9.39* 01/14/2015 NEUTROABS 6.64 01/15/2015 NEUTROMAN 58 01/14/2015 LYMPHOABS 5.18* 01/14/2015 LYMPHOMAN 32 01/14/2015 LYMPHSABS 4.86* 01/15/2015 LYMPHOPCT 37.06 01/15/2015 MONOABSMAN 1.46* 01/14/2015 MONOMAN 9 01/14/2015 MONOPCT 9.60 01/15/2015 EOSINOABS 0.16 01/14/2015 EOSINOMAN 1 01/14/2015 EOSABS 0.17 01/15/2015 EOSPCT 1.30 01/15/2015 BASOSABS 0.18* 01/15/2015 BASOPCT 1.39 01/15/2015 CMP: Lab Results Component Value Date NA 143 01/15/2015 K 3.7 01/15/2015 CL 110* 01/15/2015 CO2 24 01/15/2015 ANIONGAP 13 01/15/2015 GLUF 109* 01/15/2015 BUN 24 01/15/2015 CREATININE 1.7* 01/15/2015 BCR 14 01/15/2015 CA 7.4* 01/15/2015 CA 9.1 11/15/2014 PROT 7.0 01/15/2015 ALB 2.6* 01/15/2015 GLOB 4.3 01/15/2015 BILITOT 0.4 01/15/2015 ALP 92 01/15/2015 AST 35 01/15/2015 ALT 29 01/15/2015 EGFR 32* 01/15/2015 LDH: No results found for: LDH CPK: Lab Results Component Value Date CKTOTAL 151 01/14/2015 Impression 1. Hypoinflated chest, but no evident infiltrate chest 1 view [[id number]] Impression 1. Irregular or infiltrative segment of [...] extraluminal fluid collection abdomen pelvis without contrast [[id number]] C diff toxin by PCR (TAT 3 hr in house) Status: Final result Visible to patient: Not Released Next appt: None Ref Range 01/15/15 6:52 AM Toxigenic C Difficile NEGATIVE NEGATIVE Comments: Testing performed at [facility];[address] [place] [address];[place] [address] 027 NAP1 BI 027 NAP1 BI PRESUMPTIVE NEGATIVE 01/14/15 7:07 PM Flag CRP <0.5 mg/dL 0.5 Component Latest Ref Rng 01/14/2015 01/15/2015 3:48 PM 6:32 AM WBC 3.80 - 11.00 K/uL 16.19 (H) 13.11 (H) PROBLEM LIST Principal Problem: NSTEMI (non-ST elevated myocardial infarction) (HCC) Active Problems: ZULAY (acute kidney injury) (HCC) Liver replaced by transplant (HCC) Essential hypertension, benign CKD (chronic kidney disease), stage III Hypokalemia Immunosuppression (HCC) Leukocytosis, unspecified Macrocytosis without anemia Hypophosphatemia ASSESSMENT & PLAN Leukocytosis Appears to be nonspecific and reactive at this time question of some colitis on the CT scan of the abdomen-C. difficile negative Chest x-ray was unremarkable Blood culture-pending Urine culture not collected prior to antibiotics Pro-calcitonin was low and unremarkable Patient does have diarrhea for the last 3 weeks-C. difficile negative. I suggest she be evaluated by colonoscopy-patient has never had one. We will also get stool cultures, or parasites done Diarrhea As above Immunocompromised patient/status post-liver transplant Continue IV antibiotics until blood culture reports finalized as negative. Renal insufficiency Ceftriaxone will not need adjustment Code Status: Full Code Primary Care Physician: KI OSORIO Thank you for allowing me to participate in the care of this patient. I will continue to follow with you. Nupur Tadeo MD 01/15/2015 Luis Boucher MD - 01/14/2015 8:39 PM PDT Consults by Juju Riggins MD at 01/14/152038 Author: Juju Riggins MD Service: Cardiology Author Type: Physician Filed: 01/18/152002 Date of Service: 01/14/152038 Status: Signed Dairy Department Manager: Juju Riggins MD (Physician) Related Notes: Original Note by Juju Riggins MD (Physician) filed at 01/14/152105 Consult Orders: 1. Inpatient consult to Cardiology [[id number]] ordered by Jennifer Weathers MD at 01/14/15 190 [facility] Service: Cardiology Cardiology Consult Date of Admission: 01/14/2015 Date of Consultation: 01/14/2015 Requesting Physician: Jennifer Weathers MD Reason for Consultation: Elevated troponins History Obtained From: patient, chart review HISTORY OF PRESENT ILLNESS: It is my pleasure to see Cole Petty in cardiology consultation today. She is a pleasant 69-year-old female with a history of liver transplant secondary to primary biliary cirrhosi s, and history of chronic kidney disease, stage III, stroke, hypertension, hyperlipidemia, w ho was transferred from [facility] She presented there with episodes of near sync ope and subsequently was found to have mildly elevated troponin, leukocytosis, and acute ki dney injury. The patient stated that she was walking across her apartment when she felt lightheaded, swe aty and subsequently collapsed, although she did not lose consciousness. She called out for her neighbor who then helped her with calling EMS. At [facility] her troponin was found to be borderline elevated at 0.76. A 12-lead EKG showed ST-T wave inversion anterolate ral leads. The patient was found to have acute kidney injury with a creatinine of 2.4 and le ukocytosis of 12,000. The patient was transferred to [facility] where re peat troponin was showed troponin of 0.55. Her creatinine was 2.4 and white blood cells high er at 16,000. The patient was taken off methadone about 3 weeks ago and subsequently the patient develope d multiple episodes of nausea, vomiting and diarrhea and abdominal pain as she had been feel ing general weakness and generalized muscle weakness and poor appetite. This has been improv ing. The patient, however, denies any chest pain, shortness of breath, orthopnea, paroxysmal nocturnal dyspnea or palpitations. The patient stated she had a stress test prior to her liver transplant a number of years ag o and she was told everything was fine. She denies prior heart attacks or heart problems. REVIEW OF SYSTEMS Negative except for pertinent items noted in HPI PAST MEDICAL & SURGICAL HISTORY Past Medical History Diagnosis Date Stroke (HCC) Hyperlipidemia Hypertension Past Surgical History Procedure Laterality Date Liver transplant 192 Gallbladder surgery 1991 Splenectomy MEDICATIONS Home Medications (Not in a hospital admission) Allergies Allergies Allergen Reactions Codeine Nausea and Vomiting FAMILY HISTORY Family History Problem Relation Age of Onset Stroke Brother Kidney disease Neg Hx Diabetes Father SOCIAL HISTORY History Social History Marital Status: Spouse Name: [...] by herself Single No kids 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 HEENT: No xanthelasmas. Extraocular movements were intact. No jaundice. NECK: no JVD, lymphadenopathy. Trachea is at midline. Thyroid is not palpable. CARDIAC: There is normal S1 and S2. No added sounds, murmurs, gallop, or rub. CHEST: Normal bilateral symmetrical chest excursion. Good bilateral air entry with no crack les or wheezing. No evidence of dullness. ABDOMEN: Soft and lax. No tenderness. Active bowel sounds. EXTREMITIES: Trace lower extremities edema. No cyanosis. VASCULAR: Right carotid artery is +2 with no bruit. Left carotid artery is +2 with no bruit. Right radial artery is +2. Left radial artery is +2. Right dorsalis pedis is +2. Left dorsalis pedis is +2. NEURO: Alert and oriented times three with no focal deficit. Cranial nerves are grossly no rmal. SKIN: No bruises or rash. No pallor. Psychiatric: Appropriate mood and affect. DATA Recent Labs Lab 01/14/15 1549 01/14/15 1548 NA -- 140 K -- 2.8* CO2 -- 29 BUN -- 28* CREATININE -- 2.4* MG 1.9 -- Recent Labs Lab 01/14/15 1548 CKTOTAL 151 CKMB 3.9* CKMBINDEX 2.6 TROPONINI 0.555* Recent Labs Lab 01/14/15 1548 WBC 16.19* HGB 14.6 HCT 42.7 MCV 102.3* PLT 209 Xr Chest 1 View 01/14/2015 1. Hypoinflated chest, but no evident infiltrate : NSR, ST depressions and T wave inversions anterolateral leads suggestive of ischemia Problem List: Patient Active Problem List Diagnosis ZULAY (acute kidney injury) (HCC) Liver replaced by transplant (HCC) Essential hypertension, benign Stroke (HCC) Dyslipidemia Hyperuricemia Anemia Proteinuria Hypothyroidism Osteoarthritis Vitamin D deficiency CKD (chronic kidney disease), stage III Hypokalemia Immunosuppression (HCC) NSTEMI (non-ST elevated myocardial infarction) (HCC) Leukocytosis, unspecified Macrocytosis without anemia Hypophosphatemia 1. Mildly elevated troponin. Probable non-ST elevation myocardial infarction. 2. Acute kidney injury. 3. Status post liver transplant. On chronic immunosuppressive therapy. 4. Abdominal pain. 5. Leukocytosis. 6. Hypertension. Current borderline low blood pressure. 7. History of stroke. 8. Dyslipidemia. The patient does have mildly elevated troponin in the setting of acute kidney injury. This could represent demand ischemia. The patient's ECG changes are suggestive of ischemia as wel l. Recommend treating empirically for non-ST elevation myocardial infarction with aspirin and heparin. However, since the patient had abdominal pain and leukocytosis, will recommend hold ing heparin for now until CT scan of the abdomen is done. If CT scan of the abdomen is negat kj, no immediate surgery is anticipated, then resume heparin. Follow cardiac markers. Get an echocardiogram to assess the left ventricular systolic function, assess for any wall motion abnormalities. Will start beta jann when blood pressure is stable. Will restart statins if liver function remains stable. Given the acute kidney injury, the patient will be treated medically initially. Will avoid invasive coronary angiogram if needed until renal function has improved. Thank you for allowing us to participate in the care of this patient. ASSESSMENT & PLAN Code Status: No Order Primary Care Physician: KI OSORIO (General) Juju Riggins MD 01/14/2015 rif, Luisitoling Alejo - 01/14/2015 6:33 PM PDT . Consult* by Luisito Garcia MD at 01/14/151832 Author: Luisito Garcia MD Service: Nephrology Author Type: Physician Filed: 01/14/15 194 Date of Service: 01/14/151832 Status: Signed Dairy Department Manager: Luisito Garcia MD (Physician) [facility] Service: NEPHROLOGY CONSULT Note Cole Petty 69 y.o. [phone] [birth year] female KI OSORIO (General) Hospital Day: LOS: 0 days Date of Consultation: 01/14/2015 Requesting Physician: Hospitalist Reason for CONSULTATION: ZULAY History Obtained From: patient, care team, records HISTORY OF PRESENT ILLNESS The patient is a 69 y.o. 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 and Azithromycin done in 1991 at [place], on chronic methadone, chronic kidney disease who presents with generalized weaknes s, acute renal failure and elevated troponin. Patient states that her doctor stopped her methadone 3 weeks ago. She states that since th at time she has been having vomiting 8-10 episodes per day, diarrhea, 8-10 episodes per day, abdominal pain, poor appetite, generalized myalgias, and insomnia. She states that the vomi ting and diarrhea have improved. However, today she was walking across her apartment when sh e collapsed. She states that she felt lightheaded prior to this, and sweaty. She did not lo se consciousness. She states that she called out for her neighbor who called EMS. Patient wa s taken to [facility] in [place]. Patient was noted to have a white count of 1 2,000, hemoglobin of 14, hematocrit 44, platelet count 190, glucose 145, creatinine of 2.4, BUN of 28, potassium of 3.2, albumin of 3.4, CO2 25, calcium 8.6. Her troponin was borderlin e elevated, lactic acid of 1.4. Twelve-lead ECG showed normal sinus rhythm with rate of [address] antrolateral T-wave inversion. Patient was transferred here for higher level of care. [place] jones had borderline blood pressure. While at [facility] with systolic in the low 90s. Hea rt rate was in the 70s. Patient's previous creatinine was 1.38 on 11/15/14 and 1.25 on 06/04/13. Upon arrival here, patient was found to have a troponin which was elevated to 0.55. Twelve- lead ECG was unchanged. Patient was noted to have a creatinine of 2.4 and a white count of 16,000. ED physician spoke with cardiology and patient was started on heparin for non-STEMI. She states that she continues to have abdominal pain, which has been present for 3 weeks bu t is improved. She states that she had abdominal CT done several days ago while in [place] . She also states that her vomiting and diarrhea have significantly improved. She denies any fevers, hematemesis, melena, bright red blood per rectum, hematuria, dysuria, she denies an y leg pain or swelling. No palpitations. She states she does have a history of kidney diseas e and was told that it was secondary to cyclosporine Nephrology consulted for evaluation and management of ZULAY on ckd Lab Results Component Value Date BUN 28* 01/14/2015 BUN 33* 11/15/2014 BUN 42 12/05/2013 BUN 29 06/04/2013 BUN 49* 04/05/2013 CREATININE 2.4* 01/14/2015 CREATININE 1.38* 11/15/2014 CREATININE 1.38 12/05/2013 CREATININE 1.25 06/04/2013 CREATININE 2.54* 04/05/2013 ONSET ACUTE on chronic severity SEVERE, worsening Associated with fluid electrolyte acid base imbalances RF: PRE RENAL/ POOR PO INTAKE/ NAUSEA/ VOMITING/ DIARRHEA/ LOW BP The patient has history of hypertension since ~1999. She denies any history of prolonged exposure to NSAIDs or recent exposure to known nephrotoxins. No recent IV dye exposure. She denies any recurrent nephrolithiasis or pyelonephritis. She tells me that she's had no histo ry of urinary retention, gross hematuria or dysuria. she has no incontinence symptoms. No sy mptoms of UTI. She has 2 or 3 nightly nocturia. she has no foamy urine either. Her baseline Creatinine is ~1.1-1.3. There is no family history of renal genetic diseases such as PKD. Review of Systems Constitutional: Negative for fever or recent illness +VE WEAKNESS/ fatigue Eyes: Negative for vision changes Nose: Negative for congestion Throat: Negative for sore throat CV: Negative for chest pain or palpitations Resp: Negative for pgosnaogq-nm-stdscf or cough GI: Positive for nausea, vomiting and diarrhea (onset 3 weeks, last vomiting 3 days ago) : +VE DECREASED URINE OUTPUT Musculoskeletal: Positive for generalized weakness/ myalgias/ back pain Negative for back pain, neck pain or extremity pain Skin: Negative for rash Neuro/Psych: Positive for dizziness/ weakness Negative for headache, or numbness All other systems reviewed and negative except as noted. 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 VITALS: Reviewed as listed. HEAD: NC/AT. EYES: PERRLA. EOMI. Non-icteric sclera. ENT: No oropharyngeal erythema. Buccal mucosa is dry. No gross ear or nasal proble ms noted. NECK: Supple. No raised JVD or thyromegaly. LYMPHATIC: No palpable lymphadenopathy. LUNGS: Clear to auscultation bilaterally. HEART: S1, S2, no pericardial rub noted. ABDOMEN: Full, soft, +ve epigastric discomfort. Bowel sounds are present. No organomeg mauro or bruits noted. EXTREMITIES: trace pedal edema noted. No cyanosis or clubbing. Peripheral pulses palpable SKIN: Warm to touch. No rash or ecchymosis noted. NEUROLOGIC: No gross focal motor deficit noted. PSYCH: The patient is alert and oriented x 3, mood and affect looks ok, memory seems to be intact. BACK: no CVA tenderness noted LABS: Recent [...] 0.5 - 3.6 ng/mL CK-MB Index 2.6 IMAGING: Reviewed CXR 01/14/15 FINDINGS: Mediastinum -- [...] PLAN ZULAY LIKELY SECONDARY TO Renal hypoperfusion R.O AIN R.O POST INFECTIOUS GLOMERULONEPHRITIS R.O HYDRONEPHROSIS RULED OUT RHABDOMYOLYSIS NL CPK Start IV FLUIDS KEEP MAP GREATER THAN 70 MM HG Hold Diuretics/ THADDEUS-I/ ARBS Urine studies ordered C3, C4 levels Strict I & O, Daily weights Daily RFP Renal diet AVOID NSAIDS/ WALTON-2 INHIBITORS AVOID NEPHROTOXIC MEDS INCLUDING AMINOGLYCOSIDES/ IV CONTRAST Assess daily for need for hd Dose all meds for crcl less than 15 mls/min Lab Results Component Value Date BUN 28* 01/14/2015 BUN 33* 11/15/2014 BUN 42 12/05/2013 BUN 29 06/04/2013 BUN 49* 04/05/2013 CREATININE 2.4* 01/14/2015 CREATININE 1.38* 11/15/2014 CREATININE 1.38 12/05/2013 CREATININE 1.25 06/04/2013 CREATININE 2.54* 04/05/2013 HYPOKALEMIA LIKELY DUE TO DIARRHEA REPLACE TO KEEP k GREATER THAN 3.8 REPEAT k LEVEL IN AM Lab Results Component Value Date K 2.8* 01/14/2015 K 4.4 11/15/2014 K 4.8 12/05/2013 S/P LIVER TXP AT [facility] IN 1991 IMMUNOSUPPRESSION ON CYCLOSPORIN 75 MG BID ON AZA 50 MG DAILY HYPOPHOSPHATEMIA REPLACE TO KEEP P GREATER THAN 2.5 REPEAT P LEVEL IN AM Lab Results Component Value Date PHOS 1.4* 01/14/2015 Abdominal pain / LEUCOCYTOSIS PER HOSPITALIST CT SCAN WITH ORAL CONTRAST, AVOID IV CONTRAST GIVEN RENAL FAILURE Possible UTI pyuria on her urinalysis from [facility] on ceftriaxone CASE DISCUSSED IN DETAIL WITH PATIENT/ Care team / HOSPITALIST, ANSWERS ALL QUESTIONS IN D ETAIL, VERBALIZES UNDERSTANDING I thank Dr WEATHERS for giving me the opportunity to take part in the care of this pritesh susie ent with multiple complex medical problems LUISITO GARCIA MD 01/14/2015 K[facility] OSORIO (General) documented in this en counter ED Notes Mir Nolen MD - 01/14/2015 3:57 PM PDTFormatting of this note might be different fr om the original. ED Provider Notes by Mir Nolen MD at 01/14/15 9838 Author: Mir Nolen MD Service: Emergency Department Author Type: Physician Filed: 01/15/15 1222 Date of Service: 01/14/151556 Status: Signed Dairy Department Manager: Mir Nolen MD (Physician) [facility] Department of Emergency Medicine 3:57 PM History of Present Illness Patient Identification Cole Petty is a 69 y.o. female. Patient information was obtained from patient. History/Exam limitations: none. Patient presented to the Emergency Department by: Ambulance Chief Complaint Chief Complaint Patient presents with Abnormal Labs pt seen for generalized weakness and was found to have elevated troponin. (0.076) Chief complaint: generalized weakness Location: generalized Quality: weakness Severity: moderate Duration: constant Timing: this morning Modifying factors: none Care prior to arrival: none Associated symptoms: vomiting and diarrhea (onset 3 weeks, last vomiting 3 days ago, last d iarrhea earlier today), dizziness Denies: any pain at this time, or palpitations Context: The patient states that she fell off of her couch this morning at 10 AM because he r legs were weak. She was taken to the ED in [place] and was found to have an elevated tro ponin. She denies ay chest pain. She reports that she just doesn't feel well with decreased energy and generalized weakness. She states that she had a liver transplant 20 years ago, wh ich was why she was transferred to this ED. The patient reports that she was taking methadone for chronic back pain, but stopped taking it 3 weeks ago. She also states that she was hospitalized 15 years ago for heart problems. PCP: KI OSORIO (General) Review of Systems Constitutional: Negative for fever or recent illness Eyes: Negative for vision changes Nose: Negative for congestion Throat: Negative for sore throat CV: Negative for chest pain or palpitations Resp: Negative for cadujawsx-aj-dfoecj or cough GI: Positive for vomiting and diarrhea (onset 3 weeks, last vomiting 3 days ago) Negative for abdominal pain, nausea, vomiting or diarrhea : Negative for urinary problems Musculoskeletal: Positive for chronic back pain (no change) Negative for extremity pain or swelling Skin: Negative for rash Neuro/Psych: Positive for dizziness Positive for generalized weakness Negative for headache, or numbness All other systems reviewed and negative except as noted. Past Medical History Diagnosis Date Stroke (HCC) [...] 2 (two) times daily. Histori laith Provider fluticasone (FLONASE) 50 MCG/ACT nasal 1 spray by Each Nare route daily. Historical Prov ider gabapentin (NEURONTIN) 400 MG capsule Take 400 mg by mouth 4 (four) times daily. Histori laith Provider HYDROcodone-acetaminophen (NORCO) 5-325 MG per tablet Take 1 tablet by mouth every 6 (six) hours as needed. Historical Provider levothyroxine (SYNTHROID, LEVOTHROID) 125 MCG tablet Take 125 mcg by mouth every morning be fore breakfast. Historical Provider metoprolol (LOPRESSOR) 100 MG tablet Take 100 mg by mouth 2 (two) times daily. Historica l Provider pravastatin (PRAVACHOL) 10 MG tablet Take 10 mg by mouth nightly. Historical Provider vitamin B-12 (CYANOCOBALAMIN) 1000 MCG tablet Take 1,000 mcg by mouth daily. Historical Provider methadone (DOLOPHINE) 10 MG tablet Take 10 mg by mouth 2 (two) times daily. 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 Family History Problem Relation Age of Onset Stroke Brother Kidney disease Neg Hx Diabetes Father Physical Exam BP 114/58 mmHg | Pulse 78 | Temp(Src) 99.7 F (37.6 C) | Resp 17 | SpO2 94% Vital signs interpretation: WNL Pulse Oximetry interpretation: Normal General: Alert, in no apparent distress Eyes: Normal inspection, non-icteric, non-injected, PERRL, EOMI, sustained nystagmus with lateral gaze ENT: Ears normal, L TM is partially occluded with cerumen (what I see of the TM is normal) , R TM is normal Nose normal Pharynx normal Moist mucous membranes No erythema, exudate, or lesions Neck: Normal inspection Supple, no lymphadenopathy Back: Normal inspection CV: Rate and rhythm normal No murmurs Symmetric radial pulses Respiratory: Bilaterally clear to auscultation No rales, wheezing or rhonchi Abdomen: Soft, non-distended, non-tender No masses, rebound or guarding Extremities: Mild tenderness in the anterolateral region on the L knee, FROM Skin: Color normal Warm and dry No rash Neuro: Alert, no AMS No gross motor/sensory deficits Medical Decision Making and Emergency Department Course ED Department Course Patient presents to ED with complaints of generalized weakness, dizziness, vomiting, and di arrhea. She was found to have an elevated Troponin in [place]. My DDx includes, but is no t limited to: ACS, dehydration, electrolyte abnormality, metabolic abnormality, vs other. W ill order cardiac panel, Troponin, and EKG. Labs and EKG from [facility] reviewed EKG: NSR @ 75, nonspecific T/ST wave abnormality, no STEMI Trop: 0.076 CBC: WBC 12.0, Hgb 14.1, plt 190 CMP: Cr 2.4, BUN 28, GFR 20, K 3.2 Lactic acid: 1.4 Reviewed labs. Troponin was 0.555, which has increased from 0.076 at the [place] ED. Base d on her EKG and trop, I believe the patient has a non STEMI. Will start her on heparin (rigoberto l give IV ggt due to her renal function) and discuss with cardiology 5:08 PM Discussed patient's case with Dr. Riggins, ip architect. He will consult. Upon review of the patient s history, physical and the results of studies I believe that the patient warrants admission to the hospital for further evaluation and treatment. I have spoken with the patient regarding the need for admission to the hospital, and the patient h as expressed understanding of this. I will call and arrange for admission at this time. 5:09 PM Discussed patient's case with Dr. Weathers, hospitalist, who accepts the patient for a dmission. 7:34 PM Discussed patient's case with Dr. Weathers, who has evaluated the patient in the ED. Filed Vitals: 01/14/15 1808 01/14/15200301/14/158 01/14/152153 BP: 96/51 102/64 138/74 Pulse: 79 87 79 Temp: 99 F (37.2 C) 99.3 F (37.4 C) 98.4 F (36.9 C) TempSrc: Oral Oral Oral Resp: 14 18 Height: 1.6 m (5' 3") Weight: 89.6 kg (197 lb 8.5 oz) 89.6 kg (197 lb 8.5 oz) SpO2: 98% 97% 94% Records Reviewed Old medical records. Nursing notes. No previous [facility] ED visits available in [email or web address] for review. Laboratory Evaluation Results Procedure Component Value Ref Range Date/Time Procalcitonin [[id number]] Collected: 01/14/151906 Order Status: Completed Updated: 01/14/151958 PROCALCITONIN 0.29 <0.5 ng/mL CRP [[id number]] (Abnormal) Collected: 01/14/151906 Order Status: Completed Specimen Information: Blood Updated: 01/14/151945 CRP 0.5 (H) <0.5 mg/dL ESR [[id number]] (Abnormal) Collected: 01/14/151906 Order Status: Completed Specimen Information: Blood Updated: 01/14/151930 ESR 42 (H) 0 - 30 mm/Hr Folate [[id number]] Collected: 01/14/151906 Order Status: Sent Specimen Information: Blood Updated: 01/14/151921 Vitamin B12 [[id number]] Collected: 01/14/151906 Order Status: Sent Specimen Information: Blood Updated: 01/14/151921 Blood culture [[id number]] Order Status: Sent Specimen Information: Blood / Blood Cardiac Panel [[id number]] (Abnormal) Collected: 01/14/15 1548 Order Status: Completed Updated: 01/14/15 1648 WBC 16.19 (H) 3.80 - 11.00 K/uL [...] 0.5 - 3.6 ng/mL CK-MB Index 2.6 Troponin I, Lab [[id number]] (Abnormal) Collected: 01/14/15 1548 Order Status: Completed Specimen Information: Blood Updated: 01/14/15 1644 TROPONIN I 0.555 (H) 0.00 - 0.10 ng/mL I personally reviewed the lab results and they have been posted to the chart. Pertinent po sitive and negative findings have been addressed appropriately. Radiology and EKG Evaluation EKG @ 16:01 Rate: 79 bpm Normal sinus rhythm Nonspecific T wave abnormality No evidence of STEMI Interpreted by me: Mir Nolen MD ED Diagnoses Final diagnoses Near syncope Elevated troponin Non-STEMI (non-ST elevated myocardial infarction) (HCC) CKD (chronic kidney disease), unspecified stage Leukocytosis Disposition: ED Disposition Admit/Observation Requested Unit:: Acute Care Bed request special needs: Telemetry Diagnosis?: Near syncope, Elevated trop, non STEMI, CKD, leukocytosis Mir Nolen MD Procedures Additional Documentation Procedures Attending Note: Documentation assistance provided by Tara Jackson (Scribe). Information recorded by the scribe has been reviewed and validated by me. I laz ross with its contents. MD Mir Jones MD 01/15/15 1222 onversion Transact ion, Provider Unknown - 01/14/2015 3:51 PM PDTFormatting of this note might be different fr om the original. ED Notes by Abhishek Benito RN at 01/14/15 3688 Author: Abhishek Benito RN Service: (none) Author Type: Registered Nurse Filed: 01/14/151550 Date of Service: 01/14/151550 Status: Signed Dairy Department Manager: Abhishek Beinto RN (Registered Nurse) Pt denies chest pain at this time. Pt denies nausea/vomiting, SOB. Pt states she just doesn 't feel right. Abhishek Benito RN 01/14/151550 Electronically signed by [facility] Transaction, Provider at 01/13/2019 3:31 PM PDTdocume nted in this encounter Miscellaneous Notes Op Note - Juan Ramey - 01/17/2015 9:14 PM PDT Op Note by Juan Ramey MD at 01/17/152113 Author: Juan Ramey MD Service: Gastroenterology Author Type: Physician Filed: 01/17/152116 Date of Service: 01/17/152113 Status: Signed Dairy Department Manager: Juan Ramey MD (Physician) [facility] Service: Gastroenterology ENDOSCOPY SUITE PROCEDURE NOTE Colonoscopy Indications: Diarrhea Consent: The benefits, risks (bleeding, perforation, infection and reaction to medication) , and alternatives to the procedure were discussed and informed consent was obtained from th e patient. Preparation: EKG, pulse, pulse oximetry, and blood pressure were monitored throughout the procedure. Medications: MAC Digital Rectal Exam: Normal rectal exam. Procedure: The Olympus colonoscope was passed through the anus under direct visualization and was advanced with ease to the cecum, confirmed by appendiceal orifice and ileocecal valv e. The scope was withdrawn and the mucosa was carefully examined. The quality of the prepara tion was good. The views were good. The patient's toleration of the procedure was good. Ther e were no apparent complications. Findings: -normal colonic mucosa throughout -diverticulosis, moderate in degree, involving the descending colon and the sigmoid -hemorrhoids (internal), Small in size Random biopsy was obtained from Terminal ilium and colon Specimens: Terminal ilium and colon Complications: None; patient tolerated the procedure well. Impression: Diverticulosis and hemorrhoids, otherwise normal colonoscopy, s/p biopsy EBL: Minimal Recommendations: -Await pathology.- Return floor and resume current care. JUAN RAMEY MD 01/17/2015 lan of Care - Conversion Transaction, Provider Unknown - 01/15/2015 11:55 AM PDTFormatting of this note might be diff erent from the original. Plan of Care by Filemon Butler RN at 01/15/15 3701 Author: Filemon Butler RN Service: (none) Author Type: Registered Nurse Filed: 01/15/15 1305 Date of Service: 01/15/153 Status: Signed Dairy Department Manager: Filemon Butler RN (Registered Nurse) Patient is progressing with daily goals. docume nted in this encounter Plan of Treatment +--------+ + + + + | Date | Type | Specialty | Care Team | Description | +--------+ + + + + | 02/05/ | Virtual | Nephrology | Emil Oliva MD | | 2019 | Office | | [address] [facility] | | | | Visit | | [address] [place], [place] | | | | | | [address] | | | | | | | | +--------+ + + + + | 03/20/ | Office | Cardiology | Dang Barnes | | | 2019 | Visit | | [address] | | | | | | [address] | | | | | | [place] [address] | | | | | | [phone] | | | | | | | [...] | is entirely submitted in cassette (B1). fm:mdm PERFORMING | | | LABORATORY: Professional interpretation and technical preparation was | | | performed by [facility], [facility], [facility] | | | [place] [address] (Patient Consumer Marketer: Martin | | | Zhang Galvan; [facility]#: [id number]). Diagnostician: Martin Galvan | | | Pathologist [...] | | | | | [place] [address] | | | | + + + [...] EXTERNAL | | | | performed at [facility], [address] | | LAB | | | | [address], | | | | | | [place] [address] | | | | + + + [...] | | | | | [place] [address] | | | | + + + + + + | K | 3.4 (L)Comment: Testing | 3.5 - 4.9 | EXTERNAL | | | | performed at [facility], [address] | mmol/L | LAB | | | | [address], | | | | | | [place] [address] | | | | + + + + + + | Cl | 101Comment: Testing | 99 - 109 mmol/L | EXTERNAL | | | | performed at [facility], [address] | | LAB | | | | [address], | | | | | | [place] [address] | | | | + + + + + + | CO2 | 28Comment: Testing | 23 - 32 mmol/L | EXTERNAL | | | | performed at [facility], [address] | | LAB | | | | [address], | | | | | | [place] [address] | | | | + + + + + + | Anion Gap | 10Comment: Testing | 5 - 20 mmol/L | EXTERNAL | | | | performed at [facility], [address] | | LAB | | | | [address], | | | | | | [place] [address] | | | | + + + + + + | Glucose, | 107 (H)Comment: Testing | 65 - 99 mg/dL | EXTERNAL | | | Fasting | performed at [facility], [address] | | LAB | | | | [address], | | | | | | [place] [address] | | | | + + + + + + | BUN | 8Comment: Testing | 8 - 25 mg/dL | EXTERNAL | | | | performed at [facility], [address] | | LAB | | | | [address], | | | | | | [place] [address] | | | | + + + + + + | Creatinine | 0.96Comment: Testing | 0.50 - 1.00 | EXTERNAL | | | | performed at [facility], [address] | mg/dL | LAB | | | | [address], | | | | | | [place] [address] | | | | + + + + + + | BUN/Creatin | 8Comment: Testing | | EXTERNAL | | | ine Ratio | performed at [facility], [address] | | LAB | | | | [address], | | | | | | [place] [address] | | | | + + + + + + | Calcium | 8.6Comment: Testing | 8.5 - 10.5 | EXTERNAL | | | | performed at [facility], [address] | mg/dL | LAB | | | | [address], | | | | | | [place] [address] | | | | + + + [...] | | | | | | at [facility], [address] | | | | | | [address], | | | | | | [place] [address] | | | | + + + [...] At | + + + | [place] 1945 [place] MYOCARDIAL PERFUSION SPECT - STRESS | | [...] Blake - 01/05/2019 4:32 AM PDT [place]1945[facility] MYOCARDIAL | | PERFUSION SPECT - STRESS [...] | | | | | [place] [address] | | | | + + + + + + | Non- | 3.41 (L)Comment: Testing | 3.70 - 5.10 | EXTERNAL | | | Red Blood | performed at [facility], [address] | M/uL | LAB | | | Cells | [address], | | | | | Counted | [place] [address] | | | | + + + + + + | Hemoglobin | 11.9Comment: Testing | 11.3 - 15.5 | EXTERNAL | | | | performed at [facility], [address] | g/dL | LAB | | | | [address], | | | | | | [place] [address] | | | | + + + + + + | Hematocrit, | 35.7Comment: Testing | 34.0 - 46.0 % | EXTERNAL | | | POC | performed at [facility], [address] | | LAB | | | | [address], | | | | | | [place] [address] | | | | + + + + + + | MCV | 104.6 (H)Comment: | 80.0 - 100.0 fl | EXTERNAL | | | | Testing performed at | | LAB | | | | [facility], [address] | | | | | | [place] | | | | | | [address] | | | | + + + + + + | MCH | 34.9 (H)Comment: Testing | 27.0 - 34.0 pg | EXTERNAL | | | | performed at [facility], [address] | | LAB | | | | [address], | | | | | | [place] [address] | | | | + + + + + + | MCHC | 33.3Comment: Testing | 32.0 - 35.5 | EXTERNAL | | | | performed at [facility], [address] | g/dL | LAB | | | | [address], | | | | | | [place] [address] | | | | + + + + + + | RDW-CV | 50.8Comment: Testing | 37 - 53 fl | EXTERNAL | | | | performed at [facility], [address] | | LAB | | | | [address], | | | | | | [place] [address] | | | | + + + [...] | | | | | [place] [address] | | | | + + + + + + | MPV | 12.6Comment: Testing | fl | EXTERNAL | | | | performed at [facility], [address] | | LAB | | | | [address], | | | | | | [place] [address] | | | | + + + + + + | Differentia | AUTOMATEDComment: | | EXTERNAL | | | l Type | Testing performed at | | LAB | | | | [facility] [address] [facility] [facility] | | | | | | [place] | | | | | | [address] | | | | + + + + + + | % Segmented | 40.31Comment: Testing | % | EXTERNAL | | | | performed at [facility], [address] | | LAB | | | Neutrophils | [address], | | | | | | [place], [place] [address] | | | | + + + + + + | % | 39.78Comment: Testing | % | EXTERNAL | | | Lymphocytes | performed at [facility], [address] | | LAB | | | | [address], | | | | | | [place], [place] [address] | | | | + + + + + + | % Monocytes | 12.51Comment: Testing | % | EXTERNAL | | | | performed at [facility], [address] | | LAB | | | | [address], | | | | | | [place] [address] | | | | + + + + + + | % | 6.45Comment: Testing | % | EXTERNAL | | | Eosinophils | performed at [facility], [address] | | LAB | | | | [address], | | | | | | [place] [address] | | | | + + + + + + | % Basophils | 0.95Comment: Testing | % | EXTERNAL | | | | performed at [facility], [address] | | LAB | | | | [address], | | | | | | [place] [address] | | | | + + + + + + | Absolute | 3.26Comment: Testing | 1.90 - 7.40 | EXTERNAL | | | Segmented | performed at [facility], [address] | K/uL | LAB | | | Neutrophils | [address], | | | | | | [place] [address] | | | | + + + + + + | Absolute | 3.21Comment: Testing | 1.00 - 3.90 | EXTERNAL | | | Lymphocytes | performed at [facility], [address] | K/uL | LAB | | | | [address], | | | | | | [place] [address] | | | | + + + + + + | Absolute | 1.01 (H)Comment: Testing | 0.00 - 0.80 | EXTERNAL | | | Monocytes | performed at [facility], [address] | K/uL | LAB | | | | [address], | | | | | | [place] [address] | | | | + + + + + + | Absolute | 0.52 (H)Comment: Testing | 0.00 - 0.50 | EXTERNAL | | | Eosinophils | performed at [facility], [address] | K/uL | LAB | | | | [address], | | | | | | [place] [address] | | | | + + + + + + | Absolute | 0.08Comment: Testing | 0.00 - 0.10 | EXTERNAL | | | Basophils | performed at [facility], [address] | K/uL | LAB | | | | [address], | | | | | | [place] [address] | | | | + + + + + + | RBC | RBC AND PLT MORPHOLOGY | | EXTERNAL | | | Morphology | APPEAR NORMALComment: | | LAB | | | | Testing performed at | | | | | | [facility], [address] | | | | | | [place] | | | | | | [address] | | | | + + + [...] EXTERNAL | | | | performed at [facility], [address] | | LAB | | | | [address], | | | | | | [place] [address] | | | | + + + [...] EXTERNAL | | | | performed at [facility], [address] | | LAB | | | | [address], | | | | | | [place] [address] | | | | + + + [...] | | | | | [place] [address] | | | | + + + + + + | K | 3.8Comment: Testing | 3.5 - 4.9 | EXTERNAL | | | | performed at [facility], [address] | mmol/L | LAB | | | | [address], | | | | | | [place] [address] | | | | + + + + + + | Cl | 101Comment: Testing | 99 - 109 mmol/L | EXTERNAL | | | | performed at [facility], [address] | | LAB | | | | [address], | | | | | | [place] [address] | | | | + + + + + + | CO2 | 27Comment: Testing | 23 - 32 mmol/L | EXTERNAL | | | | performed at [facility], [address] | | LAB | | | | [address], | | | | | | [place] [address] | | | | + + + + + + | Anion Gap | 12Comment: Testing | 5 - 20 mmol/L | EXTERNAL | | | | performed at [facility], [address] | | LAB | | | | [address], | | | | | | [place] [address] | | | | + + + + + + | Glucose, | 118 (H)Comment: Testing | 65 - 99 mg/dL | EXTERNAL | | | Fasting | performed at [facility], [address] | | LAB | | | | [address], | | | | | | [place] [address] | | | | + + + + + + | BUN | 7 (L)Comment: Testing | 8 - 25 mg/dL | EXTERNAL | | | | performed at [facility], [address] | | LAB | | | | [address], | | | | | | [place] [address] | | | | + + + + + + | Creatinine | 0.79Comment: Testing | 0.50 - 1.00 | EXTERNAL | | | | performed at [facility], [address] | mg/dL | LAB | | | | [address], | | | | | | [place] [address] | | | | + + + + + + | BUN/Creatin | 9Comment: Testing | | EXTERNAL | | | ine Ratio | performed at [facility], [address] | | LAB | | | | [address], | | | | | | [place] [address] | | | | + + + + + + | Calcium | 7.5 (L)Comment: Testing | 8.5 - 10.5 | EXTERNAL | | | | performed at [facility], [address] | mg/dL | LAB | | | | [address], | | | | | | [place] [address] | | | | + + + + + + | Protein, | 7.2Comment: Testing | 6.3 - 8.2 g/dL | EXTERNAL | | | Total | performed at [facility], [address] | | LAB | | | | [address], | | | | | | [place] [address] | | | | + + + + + + | Albumin | 3.1 (L)Comment: Testing | 3.3 - 4.8 g/dL | EXTERNAL | | | | performed at [facility], [address] | | LAB | | | | [address], | | | | | | [place] [address] | | | | + + + + + + | Globulin | 4.1Comment: Testing | 1.3 - 4.9 g/dL | EXTERNAL | | | | performed at [facility], [address] | | LAB | | | | [address], | | | | | | [place] [address] | | | | + + + + + + | A/G Ratio | 0.8 (L)Comment: Testing | 1.0 - 2.4 | EXTERNAL | | | | performed at [facility], [address] | | LAB | | | | [address], | | | | | | [place] [address] | | | | + + + + + + | Bilirubin | 0.5Comment: Testing | 0.1 - 1.5 mg/dL | EXTERNAL | | | Total | performed at [facility], [address] | | LAB | | | | [address], | | | | | | [place] [address] | | | | + + + + + + | ALP, | 76Comment: Testing | 35 - 115 U/L | EXTERNAL | | | External | performed at [facility], [address] | | LAB | | | | [address], | | | | | | [place] [address] | | | | + + + + + + | AST | 43Comment: Testing | 10 - 45 U/L | EXTERNAL | | | | performed at [facility], [address] | | LAB | | | | [address], | | | | | | [place] [address] | | | | + + + + + + | ALT | 25Comment: Testing | 10 - 65 U/L | EXTERNAL | | | | performed at [facility], [address] | | LAB | | | | [address], | | | | | | [place] [address] | | | | + + + [...] [address] | | | | | | [address], | | | | | | [place] [address] | | | | + + + [...] EXTERNAL | | | | performed at [facility];[address] | mmol/L | LAB | | | | [address];[place] | | | | | | [address] | | | | + + + [...] EXTERNAL | | | | performed at [facility];[address] | | LAB | | | | [address];[place], [place] | | | | | | [address] | | | | + + + [...] EXTERNAL | | | | performed at [facility];[address] | | LAB | | | | [address];[place], [place] | | | | | | [address] | | | | + + + [...] EXTERNAL | | | | performed at [facility];888 | mmol/L | LAB | | | | [address];[place] | | | | | | [address] | | | | + + + [...] EXTERNAL | | | | performed at [facility];[address] | | LAB | | | | [address];[place], [place] | | | | | | [address] | | | | + + [...] EXTERNAL | | | | performed at [facility] | | LAB | | | | [address];[place] | | | | | | [address] | | | | + + + [...] EXTERNAL | | | | performed at [facility], [address] | K/uL | LAB | | | | [address], | | | | | | [place] [address] | | | | + + + + + + | Non- | 3.40 (L)Comment: Testing | 3.70 - 5.10 | EXTERNAL | | | Red Blood | performed at [facility], [address] | M/uL | LAB | | | Cells | [address], | | | | | Counted | [place] [address] | | | | + + + + + + | Hemoglobin | 12.0Comment: Testing | 11.3 - 15.5 | EXTERNAL | | | | performed at [facility], [address] | g/dL | LAB | | | | [address], | | | | | | [place] [address] | | | | + + + + + + | Hematocrit, | 35.8Comment: Testing | 34.0 - 46.0 % | EXTERNAL | | | POC | performed at [facility], [address] | | LAB | | | | [address], | | | | | | [place] [address] | | | | + + + + + + | MCV | 105.3 (H)Comment: | 80.0 - 100.0 fl | EXTERNAL | | | | Testing performed at | | LAB | | | | [facility], [address] | | | | | | [place] | | | | | | [address] | | | | + + + + + + | MCH | 35.3 (H)Comment: Testing | 27.0 - 34.0 pg | EXTERNAL | | | | performed at [facility], [address] | | LAB | | | | [address], | | | | | | [place] [address] | | | | + + + + + + | MCHC | 33.6Comment: Testing | 32.0 - 35.5 | EXTERNAL | | | | performed at [facility], [address] | g/dL | LAB | | | | [address], | | | | | | [place] [address] | | | | + + + + + + | RDW-CV | 50.8Comment: Testing | 37 - 53 fl | EXTERNAL | | | | performed at [facility], [address] | | LAB | | | | [address], | | | | | | [place] [address] | | | | + + + + + + | Platelet | 149 (L)Comment: Testing | 150 - 400 K/uL | EXTERNAL | | | Count | performed at [facility], [address] | | LAB | | | Plasma | [address], | | | | | | [place] [address] | | | | + + + + + + | MPV | 13.0Comment: Testing | fl | EXTERNAL | | | | performed at [facility], [address] | | LAB | | | | [address], | | | | | | [place] [address] | | | | + + + + + + | Differentia | AUTOMATEDComment: | | EXTERNAL | | | l Type | Testing performed at | | LAB | | | | [facility], [address] | | | | | | [place] | | | | | | [address] | | | | + + + + + + | % Segmented | 52.08Comment: Testing | % | EXTERNAL | | | | performed at [facility], [address] | | LAB | | | Neutrophils | [address], | | | | | | [place], [place] [address] | | | | + + + + + + | % | 32.37Comment: Testing | % | EXTERNAL | | | Lymphocytes | performed at [facility], [address] | | LAB | | | | [address], | | | | | | [place], [place] [address] | | | | + + + + + + | % Monocytes | 10.07Comment: Testing | % | EXTERNAL | | | | performed at [facility], [address] | | LAB | | | | [address], | | | | | | [place] [address] | | | | + + + + + + | % | 4.41Comment: Testing | % | EXTERNAL | | | Eosinophils | performed at [facility], [address] | | LAB | | | | [address], | | | | | | [place] [address] | | | | + + + + + + | % Basophils | 1.07Comment: Testing | % | EXTERNAL | | | | performed at [facility], [address] | | LAB | | | | [address], | | | | | | [place] [address] | | | | + + + + + + | Absolute | 5.59Comment: Testing | 1.90 - 7.40 | EXTERNAL | | | Segmented | performed at [facility], [address] | K/uL | LAB | | | Neutrophils | [address], | | | | | | [place] [address] | | | | + + + + + + | Absolute | 3.48Comment: Testing | 1.00 - 3.90 | EXTERNAL | | | Lymphocytes | performed at [facility], [address] | K/uL | LAB | | | | [address], | | | | | | [place] [address] | | | | + + + + + + | Absolute | 1.08 (H)Comment: Testing | 0.00 - 0.80 | EXTERNAL | | | Monocytes | performed at [facility], [address] | K/uL | LAB | | | | [address], | | | | | | [place] [address] | | | | + + + + + + | Absolute | 0.47Comment: Testing | 0.00 - 0.50 | EXTERNAL | | | Eosinophils | performed at [facility], [address] | K/uL | LAB | | | | [address], | | | | | | [place] [address] | | | | + + + + + + | Absolute | 0.12 (H)Comment: Testing | 0.00 - 0.10 | EXTERNAL | | | Basophils | performed at [facility], [address] | K/uL | LAB | | | | [address], | | | | | | [place] [address] | | | | + + + + + + | RBC | NORMAL RBC MORPHComment: | | EXTERNAL | | | Morphology | Testing performed at | | LAB | | | | [facility], [address] | | | | | | [place] | | | | | | [address] | | | | + + + + + + | Differentia | 1+ GIANT PLTComment: | | EXTERNAL | | | l Comments | Testing performed at | | LAB | | | | [facility], [address] | | | | | | [place] | | | | | | [address] | | | | + + + [...] | | | | | [place] [address] | | | | + + + + + + | K | 3.2 (L)Comment: Testing | 3.5 - 4.9 | EXTERNAL | | | | performed at [facility], [address] | mmol/L | LAB | | | | [address], | | | | | | [place] [address] | | | | + + + + + + | Cl | 100Comment: Testing | 99 - 109 mmol/L | EXTERNAL | | | | performed at [facility], [address] | | LAB | | | | [address], | | | | | | [place] [address] | | | | + + + + + + | CO2 | 28Comment: Testing | 23 - 32 mmol/L | EXTERNAL | | | | performed at [facility], [address] | | LAB | | | | [address], | | | | | | [place] [address] | | | | + + + + + + | Anion Gap | 13Comment: Testing | 5 - 20 mmol/L | EXTERNAL | | | | performed at [facility], [address] | | LAB | | | | [address], | | | | | | [place] [address] | | | | + + + + + + | Glucose, | 114 (H)Comment: Testing | 65 - 99 mg/dL | EXTERNAL | | | Fasting | performed at [facility], [address] | | LAB | | | | [address], | | | | | | [place] [address] | | | | + + + + + + | BUN | 8Comment: Testing | 8 - 25 mg/dL | EXTERNAL | | | | performed at [facility], [address] | | LAB | | | | [address], | | | | | | [place] [address] | | | | + + + + + + | Creatinine | 0.94Comment: Testing | 0.50 - 1.00 | EXTERNAL | | | | performed at [facility], [address] | mg/dL | LAB | | | | [address], | | | | | | [place] [address] | | | | + + + + + + | BUN/Creatin | 9Comment: Testing | | EXTERNAL | | | ine Ratio | performed at [facility], [address] | | LAB | | | | [address], | | | | | | [place] [address] | | | | + + + + + + | Calcium | 7.8 (L)Comment: Testing | 8.5 - 10.5 | EXTERNAL | | | | performed at [facility], [address] | mg/dL | LAB | | | | [address], | | | | | | [place] [address] | | | | + + + + + + | Protein, | 7.8Comment: Testing | 6.3 - 8.2 g/dL | EXTERNAL | | | Total | performed at [facility], [address] | | LAB | | | | [address], | | | | | | [place] [address] | | | | + + + + + + | Albumin | 3.3Comment: Testing | 3.3 - 4.8 g/dL | EXTERNAL | | | | performed at [facility], [address] | | LAB | | | | [address], | | | | | | [place] [address] | | | | + + + + + + | Globulin | 4.5Comment: Testing | 1.3 - 4.9 g/dL | EXTERNAL | | | | performed at [facility], [address] | | LAB | | | | [address], | | | | | | [place] [address] | | | | + + + + + + | A/G Ratio | 0.7 (L)Comment: Testing | 1.0 - 2.4 | EXTERNAL | | | | performed at [facility], [address] | | LAB | | | | [address], | | | | | | [place] [address] | | | | + + + + + + | Bilirubin | 0.4Comment: Testing | 0.1 - 1.5 mg/dL | EXTERNAL | | | Total | performed at [facility], [address] | | LAB | | | | [address], | | | | | | [place], [place] [address] | | | | + + + + + + | ALP, | 83Comment: Testing | 35 - 115 U/L | EXTERNAL | | | External | performed at [facility], [address] | | LAB | | | | [address], | | | | | | [place] [address] | | | | + + + + + + | AST | 34Comment: Testing | 10 - 45 U/L | EXTERNAL | | | | performed at [facility], [address] | | LAB | | | | [address], | | | | | | [place] [address] | | | | + + + + + + | ALT | 24Comment: Testing | 10 - 65 U/L | EXTERNAL | | | | performed at [facility], [address] | | LAB | | | | [address], | | | | | | [place] [address] | | | | + + + [...] | | | | | | at [facility], [address] | | | | | | [address], | | | | | | [place] [address] | | | | + + + [...] LAB | | | | performed at [facility];[address] | | | | | | [address];[place], [place] | | | | | | [address] | | | | + + + [...] LAB | | | | performed at [facility];[address] | | | | | | [address];[place] | | | | | | [address] | | | | + + + [...] EXTERNAL | | | | performed at [facility];[address] | mmol/L | LAB | | | | [address];[place], [place] | | | | | | [address] | | | | + + [...] EXTERNAL | | | | performed at [facility];[address] | | LAB | | | | [address];[place], [place] | | | | | | [address] | | | | + + + [...] TESTING. | | | Testing performed at [facility], [address] | | | [place] [address] | | + + + + +---------+ [...] | Testing performed at | | | [facility], [address] [place] [address] | | + + + + +---------+ [...] NONE SEEN to 1+ Testing performed at [facility], [address] [facility] | | | [place] [address] | | + + + + +---------+ [...] antigen detected by ICA Testing performed at [facility], [address] | | | [place] [address] | | + + + + +---------+ [...] at | | | | | | [facility], [address] | | | | | | [place] | | | | | | [address] | | | | + + + [...] [place] | | | | | | [place] [address] | | | | + + + + + + + + | Specimen | + + | | + + + +---------+ + + | Performing | Address | City/State/Zipcode | Phone Number | | Organization | | | | + +---------+ + + | EXTERNAL LAB | | | | + +---------+ + + Cytomegalovirus, YURIY Quant (01/16/2015 9:10 AM PDT) + + + + + + | Component | Value | Ref Range | Performed | Pathologist | | | | | At | Signature | + + + + + + | Source | PLASMAComment: Testing | | EXTERNAL | | | | performed at [facility];[address] | | LAB | | | | [address];[place], [place] | | | | | | [address] | | | | + + + + + + | CMV DNA | NOT DETECTEDComment: | | EXTERNAL | | | QUANTITATIV | Unit: IU/MLTesting | | LAB | | | E INTERP | performed at [facility], [address] | | | | | | [place] | | | | | | [place] [address] | | | | + + + + + + | CMV DNA, | NOT DETECTEDComment: | | EXTERNAL | | | Qual PCR | Unit: COPIES/MLTesting | | LAB | | | | performed at [facility], [address] | | | | | | [place] | | | | | | [place] [address] | | | | + + + [...] | | | | | | [facility] | | | | | | [facility] [...] | | | | | | at [facility], [address] | | | | | | [place] | | | | | | [address] | | | | + + + [...] EXTERNAL | | | | performed at [facility], [address] | K/uL | LAB | | | | [address], | | | | | | [place] [address] | | | | + + + + + + | Non- | 3.28 (L)Comment: Testing | 3.70 - 5.10 | EXTERNAL | | | Red Blood | performed at [facility], [address] | M/uL | LAB | | | Cells | [address], | | | | | Counted | [place] [address] | | | | + + + + + + | Hemoglobin | 11.6Comment: Testing | 11.3 - 15.5 | EXTERNAL | | | | performed at [facility], [address] | g/dL | LAB | | | | [address], | | | | | | [place] [address] | | | | + + + + + + | Hematocrit, | 34.5Comment: Testing | 34.0 - 46.0 % | EXTERNAL | | | POC | performed at [facility], [address] | | LAB | | | | [address], | | | | | | [place] [address] | | | | + + + + + + | MCV | 105.1 (H)Comment: | 80.0 - 100.0 fl | EXTERNAL | | | | Testing performed at | | LAB | | | | [facility], [address] [facility] | | | | | | [place] | | | | | | [address] | | | | + + + + + + | MCH | 35.3 (H)Comment: Testing | 27.0 - 34.0 pg | EXTERNAL | | | | performed at [facility], [address] | | LAB | | | | [address] [facility] [address], | | | | | | [place] [address] | | | | + + + + + + | MCHC | 33.5Comment: Testing | 32.0 - 35.5 | EXTERNAL | | | | performed at [facility], [address] | g/dL | LAB | | | | [address], | | | | | | [place] [address] | | | | + + + + + + | RDW-CV | 50.8Comment: Testing | 37 - 53 fl | EXTERNAL | | | | performed at [facility], [address] | | LAB | | | | [address], | | | | | | [place] [address] | | | | + + + + + + | Platelet | 144 (L)Comment: Testing | 150 - 400 K/uL | EXTERNAL | | | Count | performed at [facility], [address] | | LAB | | | Plasma | [address], | | | | | | [place] [address] | | | | + + + + + + | MPV | 13.0Comment: Testing | fl | EXTERNAL | | | | performed at [facility], [address] | | LAB | | | | [address], | | | | | | [place] [address] | | | | + + + + + + | Differentia | AUTOMATEDComment: | | EXTERNAL | | | l Type | Testing performed at | | LAB | | | | [facility], [address] [facility] | | | | | | [place] | | | | | | [address] | | | | + + + + + + | % Segmented | 37.99Comment: Testing | % | EXTERNAL | | | | performed at [facility], [address] | | LAB | | | Neutrophils | [address], | | | | | | [place] [address] | | | | + + + + + + | % | 43.49Comment: Testing | % | EXTERNAL | | | Lymphocytes | performed at [facility], [address] | | LAB | | | | [address], | | | | | | [place] [address] | | | | + + + + + + | % Monocytes | 11.24Comment: Testing | % | EXTERNAL | | | | performed at [facility], [address] | | LAB | | | | [address], | | | | | | [place] [address] | | | | + + + + + + | % | 5.97Comment: Testing | % | EXTERNAL | | | Eosinophils | performed at [facility], [address] | | LAB | | | | [address], | | | | | | [place] [address] | | | | + + + + + + | % Basophils | 1.31Comment: Testing | % | EXTERNAL | | | | performed at [facility], [address] | | LAB | | | | [address], | | | | | | [place] [address] | | | | + + + + + + | Absolute | 4.01Comment: Testing | 1.90 - 7.40 | EXTERNAL | | | Segmented | performed at [facility], [address] | K/uL | LAB | | | Neutrophils | [address], | | | | | | [place] [address] | | | | + + + + + + | Absolute | 4.59 (H)Comment: Testing | 1.00 - 3.90 | EXTERNAL | | | Lymphocytes | performed at [facility], [address] | K/uL | LAB | | | | [address], | | | | | | [place] [address] | | | | + + + + + + | Absolute | 1.19 (H)Comment: Testing | 0.00 - 0.80 | EXTERNAL | | | Monocytes | performed at [facility], [address] | K/uL | LAB | | | | [address], | | | | | | [place] [address] | | | | + + + + + + | Absolute | 0.63 (H)Comment: Testing | 0.00 - 0.50 | EXTERNAL | | | Eosinophils | performed at [facility], [address] | K/uL | LAB | | | | [address], | | | | | | [place] [address] | | | | + + + + + + | Absolute | 0.14 (H)Comment: Testing | 0.00 - 0.10 | EXTERNAL | | | Basophils | performed at [facility], [address] | K/uL | LAB | | | | [address], | | | | | | [place] [address] | | | | + + + + + + | RBC | NORMAL RBC MORPHComment: | | EXTERNAL | | | Morphology | Testing performed at | | LAB | | | | [facility], [address] | | | | | | [place] | | | | | | [address] | | | | + + + + + + | Differentia | 2+ GIANT PLTComment: | | EXTERNAL | | | l Comments | Testing performed at | | LAB | | | | [facility], [address] | | | | | | [place] | | | | | | [address] | | | | + + + [...] | | | | | | [place], [place] | | | | | | [address] | | | | + + + [...] | | | (REF) | performed at [facility], [address] | | LAB | | | | [address], | | | | | | [place] [address] | | | | + + + [...] EXTERNAL | | | | performed at [facility], [address] | | LAB | | | | [address], | | | | | | [place] [address] | | | | + + + [...] | | | | | [place] [address] | | | | + + + [...] | | | | | [place] [address] | | | | + + + + + + | K | 3.0 (L)Comment: Testing | 3.5 - 4.9 | EXTERNAL | | | | performed at [facility], [address] | mmol/L | LAB | | | | [address], | | | | | | [place] [address] | | | | + + + + + + | Cl | 104Comment: Testing | 99 - 109 mmol/L | EXTERNAL | | | | performed at [facility], [address] | | LAB | | | | [address], | | | | | | [place] [address] | | | | + + + + + + | CO2 | 22 (L)Comment: Testing | 23 - 32 mmol/L | EXTERNAL | | | | performed at [facility], [address] | | LAB | | | | [address], | | | | | | [place] [address] | | | | + + + + + + | Anion Gap | 15Comment: Testing | 5 - 20 mmol/L | EXTERNAL | | | | performed at [facility], [address] | | LAB | | | [address], | | | | | | [place] [address] | | | | + + + + + + | Glucose, | 82Comment: Testing | 65 - 99 mg/dL | EXTERNAL | | | Fasting | performed at [facility], [address] | | LAB | | | | [address], | | | | | | [place] [address] | | | | + + + + + + | BUN | 13Comment: Testing | 8 - 25 mg/dL | EXTERNAL | | | | performed at [facility], [address] | | LAB | | | | [address], | | | | | | [place] [address] | | | | + + + + + + | Creatinine | 1.01 (H)Comment: Testing | 0.50 - 1.00 | EXTERNAL | | | | performed at [facility], [address] | mg/dL | LAB | | | | [address], | | | | | | [place] [address] | | | | + + + + + + | BUN/Creatin | 13Comment: Testing | | EXTERNAL | | | ine Ratio | performed at [facility], [address] | | LAB | | | | [address], | | | | | | [place] [address] | | | | + + + + + + | Calcium | 7.7 (L)Comment: Testing | 8.5 - 10.5 | EXTERNAL | | | | performed at [facility], [address] | mg/dL | LAB | | | | [address], | | | | | | [place] [address] | | | | + + + + + + | Protein, | 7.1Comment: Testing | 6.3 - 8.2 g/dL | EXTERNAL | | | Total | performed at [facility], [address] | | LAB | | | | [address], | | | | | | [place] [id number] | | | | + + + + + + | Albumin | 3.2 (L)Comment: Testing | 3.3 - 4.8 g/dL | EXTERNAL | | | | performed at [facility], [address] | | LAB | | | | [address], | | | | | | [place] [address] | | | | + + + + + + | Globulin | 3.9Comment: Testing | 1.3 - 4.9 g/dL | EXTERNAL | | | | performed at [facility], [address] | | LAB | | | | [address], | | | | | | [place] [address] | | | | + + + + + + | A/G Ratio | 0.8 (L)Comment: Testing | 1.0 - 2.4 | EXTERNAL | | | | performed at [facility], [address] | | LAB | | | | [address], | | | | | | [place] [address] | | | | + + + + + + | Bilirubin | 0.4Comment: Testing | 0.1 - 1.5 mg/dL | EXTERNAL | | | Total | performed at [facility], [address] | | LAB | | | | [address], | | | | | | [place] [address] | | | | + + + + + + | ALP, | 76Comment: Testing | 35 - 115 U/L | EXTERNAL | | | External | performed at [facility], [address] | | LAB | | | | [address], | | | | | | [place] [id number] | | | | + + + + + + | AST | 26Comment: Testing | 10 - 45 U/L | EXTERNAL | | | | performed at [facility], [address] | | LAB | | | | [address], | | | | | | [place] [address] | | | | + + + + + + | ALT | 19Comment: Testing | 10 - 65 U/L | EXTERNAL | | | | performed at [facility], [address] | | LAB | | | | [address], | | | | | | [place] [address] | | | | + + + [...] | | | | | | at [facility], [address] | | | | | | [address], | | | | | | [place] [address] | | | | + + + [...] LAB | | | | performed at [facility], [address] | | | | | | [facility], | | | | | | [place] [address] | | | | + + + [...] | | | Urine | performed at [facility], [address] | | LAB | | | Random | [address], | | | | | | [place] [address] | | | | + + [...] | Testing performed | | | at [facility], [address] [place] [address] | | + + + + +---------+ [...] + + + | Patient Name: COLE PETTY Date of : 1945 | | | [...] LA/Ao: 1.57 D-E Excursion: 2.11 cm E-F [place]: 0.09 m/s | | | EPSS: 0.48 [...] TV A Billy: 0.66 m/s TV Dec [place]: 4.36 m/s2 TV Dec | | | Time: 184.41 ms TV E Billy: 0.80 m/s TV E/A Ratio: 1.21 | | | Retort Setter: GD Authenticated by: Gil Coronel MD Report | | | Date/Time: 01-15-2015 09:12:05 | | + + + + ---+ | Procedure Note | + ---+ | Manuel Blake Conversion - 01/05/2019 4:32 AM PDT Patient Name: Gwny PETTY of | | : 1945 Performing Physician: [...] | Index (A-L): 40.51 ml/m2LAAs A2C: 24.56 [id number] A-L A2C: 76.32 mlLAESV MOD A2C: | | 73.52 mlLALs A2C: 6.71 cmLAAs A4C: 24.96 [id number] A-L A4C: 79.86 mlLAESV MOD A4C: | | 77.20 mlLALs A4C: 6.62 cmAo Diam: 2.73 cmAV Cusp: 2.27 cmLA Diam: 4.29 | | cmLA/Ao: 1.57D-E Excursion: 2.11 cmE-F [place]: 0.09 m/sEPSS: 0.48 cmHR: 77.41 | | BPMAV maxP.05 mmHgAV meanP.21 mmHgAV Vmax: 1.73 m/Sorin Vmean: 1.25 m/Sorin | | VTI: 34.68 cmAVA Vmax: 2.07 cm2AVA (VTI): 1.85 [id number] Dopp: 2.60 [id number] | | Dopp: 5.05 l/minHR: 78.81 BPMLVOT [...] | m/sTV A Billy: 0.66 m/sTV Dec [place]: 4.36 m/s2TV Dec Time: 184.41 msTV E Billy: 0.80 | | m/sTV E/A Ratio: 1.21 Retort Setter: NEDRAAuthenticated by: Gil PURDYdennis | | Date/Time: 01-15-2015 09:12:05 IMPRESSION: 1. [...] | |D-E Excursion: 2.11 cm | |E-F [place]: 0.09 m/s | |EPSS: 0.48 cm | [...] A Billy: 0.66 m/s | |TV Dec [place]: 4.36 m/s2 | |TV Dec Time: 184.41 ms | |TV E Billy: 0.80 m/s | |TV E/A Ratio: 1.21 | | | |Retort Setter: GD | |Authenticated by: Gil Coronel MD [...] | EXTERNAL LAB | | performed at [facility];[address] [place] [address];[place] [address] 027 NAP1 BI | | | 027 NAP1 BI PRESUMPTIVE NEGATIVE | | | Detection of 027 NAP1 BI strains of C. difficile is presumptive and | | | for epidemiological purposes and not intended to guide or monitor | | | treatment for C. difficile infections. Testing performed at [facility];[address] | | | [facility];[place] [address] | | + + + + +---------+ [...] [address], | | | | | | [place] [address] | | | | + + + + + + | Complement | 19.4Comment: Testing | 10 - 40 mg/dL | EXTERNAL | | | Comp 4 | performed at [facility], [address] | | LAB | | | | [address], | | | | | | [place] [address] | | | | + + + [...] | | | | | | ACUTE ME Testing | | | | | | performed at [facility];[address] | | | | | | [address];[place] | | | | | | [address] | | | | + + + [...] K/uL | LAB | | | | [facility];[address];[place] [address] | | | | + + + + + + | Non- | 3.27 (L)Comment: Testing | 3.70 - 5.10 | EXTERNAL | | | Red Blood | performed at [facility];[address] | M/uL | LAB | | | Cells | [address];[place] | | | | | Counted | [address] | | | | + + + + + + | Hemoglobin | 11.2 (L)Comment: Testing | 11.3 - 15.5 | EXTERNAL | | | | performed at [facility];888 | g/dL | LAB | | | | [address];[place] | | | | | | [address] | | | | + + + + + + | Hematocrit, | 34.4Comment: Testing | 34.0 - 46.0 % | EXTERNAL | | | POC | performed at [facility];[address] | | LAB | | | | [address];[place] | | | | | | [address] | | | | + + + + + + | MCV | 105.2 (H)Comment: | 80.0 - 100.0 fl | EXTERNAL | | | | Testing performed at | | LAB | | | | [facility];[address];[place] [address] | | | | + + + + + + | MCH | 34.2 (H)Comment: Testing | 27.0 - 34.0 pg | EXTERNAL | | | | performed at [facility];[address] | | LAB | | | | [address];[place] | | | | | | [address] | | | | + + + + + + | MCHC | 32.5Comment: Testing | 32.0 - 35.5 | EXTERNAL | | | | performed at [facility];888 | g/dL | LAB | | | | [address];[place] | | | | | | [address] | | | | + + + + + + | RDW-CV | 50.3Comment: Testing | 37 - 53 fl | EXTERNAL | | | | performed at [facility];[address] | | LAB | | | | [address];[place] | | | | | | [address] | | | | + + + + + + | Platelet | 160Comment: Testing | 150 - 400 K/uL | EXTERNAL | | | Count | performed at [facility];[address] | | LAB | | | Plasma | [address];[place] | | | | | | [address] | | | | + + + + + + | MPV | 11.1Comment: Testing | fl | EXTERNAL | | | | performed at [facility];[address] | | LAB | | | | [address];[place] | | | | | | [address] | | | | + + + + + + | Differentia | AUTOMATEDComment: | | EXTERNAL | | | l Type | Testing performed at | | LAB | | | | [facility];[address];[place] [address] | | | | + + + + + + | % Segmented | 50.65Comment: Testing | % | EXTERNAL | | | | performed at [facility];[address] | | LAB | | | Neutrophils | [address];[place] | | | | | | [address] | | | | + + + + + + | % | 37.06Comment: Testing | % | EXTERNAL | | | Lymphocytes | performed at [facility];[address] | | LAB | | | | [address];[place] | | | | | | [address] | | | | + + + + + + | % Monocytes | 9.60Comment: Testing | % | EXTERNAL | | | | performed at [facility];[address] | | LAB | | | | [address];[place] | | | | | | [address] | | | | + + + + + + | % | 1.30Comment: Testing | % | EXTERNAL | | | Eosinophils | performed at [facility];[address] | | LAB | | | | [address];[place] | | | | | | [address] | | | | + + + + + + | % Basophils | 1.39Comment: Testing | % | EXTERNAL | | | | performed at [facility];[address] | | LAB | | | | [address];[place] | | | | | | [address] | | | | + + + + + + | Absolute | 6.64Comment: Testing | 1.90 - 7.40 | EXTERNAL | | | Segmented | performed at [facility];888 | K/uL | LAB | | | Neutrophils | [address];[place] | | | | | | [address] | | | | + + + + + + | Absolute | 4.86 (H)Comment: Testing | 1.00 - 3.90 | EXTERNAL | | | Lymphocytes | performed at [facility];[address] | K/uL | LAB | | | | [address];[place] | | | | | | [address] | | | | + + + + + + | Absolute | 1.26 (H)Comment: Testing | 0.00 - 0.80 | EXTERNAL | | | Monocytes | performed at [facility];[address] | K/uL | LAB | | | | [address];[place] | | | | | | [address] | | | | + + + + + + | Absolute | 0.17Comment: Testing | 0.00 - 0.50 | EXTERNAL | | | Eosinophils | performed at [facility];[address] | K/uL | LAB | | | | [address];[place] | | | | | | [address] | | | | + + + + + + | Absolute | 0.18 (H)Comment: Testing | 0.00 - 0.10 | EXTERNAL | | | Basophils | performed at [facility];[address] | K/uL | LAB | | | | [address];[place], [place] | | | | | | [address] | | | | + + + [...] EXTERNAL | | | | performed at [facility];[address] | | LAB | | | | [address];[place], [place] | | | | | | [address] | | | | + + + [...] LAB | | | | performed at [facility] | | | | | | [address];[place], [place] | | | | | | [address] | | | | + + + [...] EXTERNAL | | | | performed at [facility];888 | mmol/L | LAB | | | | [address];[place] | | | | | | [address] | | | | + + + + + + | K | 3.7Comment: SLT | 3.5 - 4.9 | EXTERNAL | | | | HEMOLYSISTesting | mmol/L | LAB | | | | performed at [facility];[address] | | | | | | [address];[place] | | | | | | [address] | | | | + + + + + + | Cl | 110 (H)Comment: Testing | 99 - 109 mmol/L | EXTERNAL | | | | performed at [facility];[address] | | LAB | | | | [address];[place] | | | | | | [address] | | | | + + + + + + | CO2 | 24Comment: Testing | 23 - 32 mmol/L | EXTERNAL | | | | performed at [facility];[address] | | LAB | | | | [address];[place] | | | | | | [address] | | | | + + + + + + | Anion Gap | 13Comment: Testing | 5 - 20 mmol/L | EXTERNAL | | | | performed at [facility];[address] | | LAB | | | | [address];[place] | | | | | | [address] | | | | + + + + + + | Glucose, | 109 (H)Comment: Testing | 65 - 99 mg/dL | EXTERNAL | | | Fasting | performed at [facility];[address] | | LAB | | | | [address];[place] | | | | | | [address] | | | | + + + + + + | BUN | 24Comment: Testing | 8 - 25 mg/dL | EXTERNAL | | | | performed at [facility];[address] | | LAB | | | | [address];[place] | | | | | | [address] | | | | + + + + + + | Creatinine | 1.7 (H)Comment: Testing | 0.50 - 1.00 | EXTERNAL | | | | performed at [facility];[address] | mg/dL | LAB | | | | [address];[place] | | | | | | [address] | | | | + + + + + + | BUN/Creatin | 14Comment: Testing | | EXTERNAL | | | ine Ratio | performed at [facility];[address] | | LAB | | | | [address];[place] | | | | | | [address] | | | | + + + + + + | Calcium | 7.4 (L)Comment: Testing | 8.5 - 10.5 | EXTERNAL | | | | performed at [facility];888 | mg/dL | LAB | | | | [address];[place] | | | | | | [address] | | | | + + + + + + | Protein, | 7.0Comment: Testing | 6.3 - 8.2 g/dL | EXTERNAL | | | Total | performed at [facility];[address] | | LAB | | | | [address];[place] | | | | | | [address] | | | | + + + + + + | Albumin | 2.6 (L)Comment: Testing | 3.3 - 4.8 g/dL | EXTERNAL | | | | performed at [facility];[address] | | LAB | | | | [address];[place] | | | | | | [address] | | | | + + + + + + | Globulin | 4.3Comment: Testing | 1.3 - 4.9 g/dL | EXTERNAL | | | | performed at [facility];[address] | | LAB | | | | [address];[place] | | | | | | [address] | | | | + + + + + + | A/G Ratio | 0.6 (L)Comment: Testing | 1.0 - 2.4 | EXTERNAL | | | | performed at [facility];[address] | | LAB | | | | [address];[place] | | | | | | [address] | | | | + + + + + + | Bilirubin | 0.4Comment: Testing | 0.1 - 1.5 mg/dL | EXTERNAL | | | Total | performed at [facility];[address] | | LAB | | | | [address];[place] | | | | | | [address] | | | | + + + + + + | ALP, | 92Comment: Testing | 35 - 115 U/L | EXTERNAL | | | External | performed at [facility];[address] | | LAB | | | | [address];[place] | | | | | | [address] | | | | + + + + + + | AST | 35Comment: SLT | 10 - 45 U/L | EXTERNAL | | | | HEMOLYSISTesting | | LAB | | | | performed at [facility];[address] | | | | | | [address];[place] | | | | | | [address] | | | | + + + + + + | ALT | 29Comment: Testing | 10 - 65 U/L | EXTERNAL | | | | performed at [facility];[address] | | LAB | | | | [facility], [place] | | | | | | [address] | | | | + + + [...] | | | | | | at [facility];[address];[place] [address] | | | | + + + [...] EXTERNAL | | | | performed at [facility];888 | uIU/mL | LAB | | | | [address];[place] | | | | | | [address] | | | | + + + [...] | | | | | | [place] (204) on | | | | | | 01/15/2015 11:30:08 AM | | | | + + + + + + + + | Specimen | + + | | + + + + + | Narrative | Performed At | + + + | Historically converted procedure from [facility] environment | EXTERNAL LAB | + [...] | | | | | | ACUTE ME Testing | | | | | | performed at [facility];[address] | | | | | | [facility];[place], [place] | | | | | | [address] | | | | + + + [...] GROWTH | | | Testing performed at [facility], | | | [address] [facility] [place] [address] | | + + + + +---------+ [...] | | study for comparison: None FINDINGS: Train Attendant 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 | | | [...] study | | for comparison: None FINDINGS: Train Attendant 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 degenerative changes of [...] NEGATIVE Testing | | | performed at [facility];[address] [place] [address];[place] [address] | | + + + + +---------+ [...] | | | | | | at [address] | | | | | | [facility];[place] [address] | | | | + + + [...] EXTERNAL | | | | performed at [facility] | | LAB | | | | [address];[place] | | | | | | [address] | | | | + + + [...] EXTERNAL | | | | performed at [facility];[address] | | LAB | | | | [address];[place], [place] | | | | | | [address] | | | | + + + [...] EXTERNAL | | | | performed at [facility];888 | mmol/L | LAB | | | | [address];[place] | | | | | | [address] | | | | + + + [...] EXTERNAL | | | | performed at [facility], [address] | | LAB | | | | [address], | | | | | | [place] [address] | | | | + + + [...] [place] | | | | | | [address] | | | | + + + [...] (500), | | | | | | online editor Shala Gramajo | | | | | | (25) on 01/14/2015 | | | | | | 11:17:50 PM | | | | + + + + + + + + | Specimen | + + | | + + + + + | Narrative | Performed At | + + + | Historically converted procedure from [facility] environment | EXTERNAL LAB | + [...] EXTERNAL | | | | performed at [facility];[address] | | LAB | | | | [address];[place], [place] | | | | | | [address] | | | | + + + [...] EXTERNAL | | | | performed at [facility] | | LAB | | | | [address];[place] | | | | | | [address] | | | | + + + [...] LAB | | | | performed at [facility];[address] | | | | | | [address];[place], [place] | | | | | | [address] | | | | + + + [...] EXTERNAL | | | | performed at [facility];[address] | | LAB | | | | [address];[place], [place] | | | | | | [address] | | | | + + + [...] EXTERNAL | | | | performed at [facility];[address] | | LAB | | | | [address];[place], [place] | | | | | | [address] | | | | + + + [...] K/uL | LAB | | | | [facility];[address];[place] [address] | | | | + + + + + + | Non- | 4.17Comment: Testing | 3.70 - 5.10 | EXTERNAL | | | Red Blood | performed at [facility];888 | M/uL | LAB | | | Cells | [address];[place] | | | | | Counted | [address] | | | | + + + + + + | Hemoglobin | 14.6Comment: Testing | 11.3 - 15.5 | EXTERNAL | | | | performed at [facility];888 | g/dL | LAB | | | | [address];[place] | | | | | | [address] | | | | + + + + + + | Hematocrit, | 42.7Comment: Testing | 34.0 - 46.0 % | EXTERNAL | | | POC | performed at [facility];[address] | | LAB | | | | [address];[place] | | | | | | [address] | | | | + + + + + + | MCV | 102.3 (H)Comment: | 80.0 - 100.0 fl | EXTERNAL | | | | Testing performed at | | LAB | | | | [facility];[address] | [address] | | [address];[place] [address] | | | | + + + + + + | MCH | 35.0 (H)Comment: Testing | 27.0 - 34.0 pg | EXTERNAL | | | | performed at [facility];[address] | | LAB | | | | [address];[place] | | | | | | [address] | | | | + + + + + + | MCHC | 34.2Comment: Testing | 32.0 - 35.5 | EXTERNAL | | | | performed at [facility];888 | g/dL | LAB | | | | [address];[place] | | | | | | [address] | | | | + + + + + + | RDW-CV | 49.9Comment: Testing | 37 - 53 fl | EXTERNAL | | | | performed at [facility];[address] | | LAB | | | | [address];[place] | | | | | | [address] | | | | + + + + + + | Platelet | 209Comment: Testing | 150 - 400 K/uL | EXTERNAL | | | Count | performed at [facility];[address] | | LAB | | | Plasma | [address];[place] | | | | | | [address] | | | | + + + + + + | MPV | 11.1Comment: Testing | fl | EXTERNAL | | | | performed at [facility];[address] | | LAB | | | | [address];[place] | | | | | | [address] | | | | + + + + + + | RBC | 1+Comment: GIANT | | EXTERNAL | | | Morphology | PLATELETS1+MACROTesting | | LAB | | | | performed at [facility];[address] | | | | | | [address];[place] | | | | | | [address] | | | | | |Testing performed at [facility];[address];[place] [address] | | | | | | | | | | + + + + + + | Differentia | MANUALComment: Testing | | EXTERNAL | | | l Type | performed at [facility];[address] | | LAB | | | | [address];[place] | | | | | | [address] | | | | + + + + + + | Segmented | 58Comment: Testing | % | EXTERNAL | | | Neutrophils | performed at [facility];[address] | | LAB | | | Manual | [address];[place] | | | | | | [address] | | | | + + + + + + | Lymphocytes | 32Comment: Testing | % | EXTERNAL | | | Manual | performed at [facility];[address] | | LAB | | | | [address];[place] | | | | | | [address] | | | | + + + + + + | Monocytes | 9Comment: Testing | % | EXTERNAL | | | Manual | performed at [facility];[address] | | LAB | | | | [address];[place] | | | | | | [address] | | | | + + + + + + | Eosinophils | 1Comment: Testing | % | EXTERNAL | | | Manual | performed at [facility];[address] | | LAB | | | | [address];[place] | | | | | | [address] | | | | + + + + + + | Absolute | 9.39 (H)Comment: Testing | 1.90 - 7.40 | EXTERNAL | | | Neutrophils | performed at [facility];888 | K/uL | LAB | | | | [address];[place] | | | | | | [address] | | | | + + + + + + | Absolute | 5.18 (H)Comment: Testing | 1.00 - 3.90 | EXTERNAL | | | Lymphocytes | performed at [facility];888 | K/uL | LAB | | | | [address];[place] | | | | | | [address] | | | | + + + + + + | Absolute | 1.46 (H)Comment: Testing | 0.00 - 0.80 | EXTERNAL | | | Monocytes | performed at [facility];[address] | K/uL | LAB | | | | [address];[place] | | | | | | [address] | | | | + + + + + + | Absolute | 0.16Comment: Testing | 0.00 - 0.50 | EXTERNAL | | | Eosinophils | performed at [facility];[address] | K/uL | LAB | | | | [address];[place] | | | | | | [address] | | | | + + + + + + | Na | 140Comment: Testing | 135 - 143 | EXTERNAL | | | | performed at [facility];888 | mmol/L | LAB | | | | [address];[place] | | | | | | [address] | | | | + + + + + + | K | 2.8 (L)Comment: Testing | 3.5 - 4.9 | EXTERNAL | | | | performed at [facility];888 | mmol/L | LAB | | | | [address];[place] | | | | | | [address] | | | | + + + + + + | Cl | 100Comment: Testing | 99 - 109 mmol/L | EXTERNAL | | | | performed at [facility];[address] | | LAB | | | | [address];[place] | | | | | | [address] | | | | + + + + + + | CO2 | 29Comment: Testing | 23 - 32 mmol/L | EXTERNAL | | | | performed at [facility];[address] | | LAB | | | | [address];[place] | | | | | | [address] | | | | + + + + + + | Anion Gap | 14Comment: Testing | 5 - 20 mmol/L | EXTERNAL | | | | performed at [facility];[address] | | LAB | | | | [address];[place] | | | | | | [address] | | | | + + + + + + | Glucose, | 107 (H)Comment: Testing | 65 - 99 mg/dL | EXTERNAL | | | Fasting | performed at [facility];[address] | | LAB | | | | [address];[place] | | | | | | [address] | | | | + + + + + + | BUN | 28 (H)Comment: Testing | 8 - 25 mg/dL | EXTERNAL | | | | performed at [facility];[address] | | LAB | | | | [address];[place] | | | | | | [address] | | | | + + + + + + | Creatinine | 2.4 (H)Comment: Testing | 0.50 - 1.00 | EXTERNAL | | | | performed at [facility];888 | mg/dL | LAB | | | | [address];[place] | | | | | | [address] | | | | + + + + + + | BUN/Creatin | 12Comment: Testing | | EXTERNAL | | | ine Ratio | performed at [facility];[address] | | LAB | | | | [address];[place] | | | | | | [address] | | | | + + + + + + | Calcium | 8.1 (L)Comment: Testing | 8.5 - 10.5 | EXTERNAL | | | | performed at [facility];888 | mg/dL | LAB | | | | [address];[place] | | | | | | [address] | | | | + + + + + + | Protein, | 9.3 (H)Comment: Testing | 6.3 - 8.2 g/dL | EXTERNAL | | | Total | performed at [facility];[address] | | LAB | | | | [address];[place] | | | | | | [address] | | | | + + + + + + | Albumin | 3.3Comment: Testing | 3.3 - 4.8 g/dL | EXTERNAL | | | | performed at [facility];[address] | | LAB | | | | [address];[place] | | | | | | [address] | | | | + + + + + + | Globulin | 6.0 (H)Comment: Testing | 1.3 - 4.9 g/dL | EXTERNAL | | | | performed at [facility];[address] | | LAB | | | | [address];[place] | | | | | | [address] | | | | + + + + + + | A/G Ratio | 0.5 (L)Comment: Testing | 1.0 - 2.4 | EXTERNAL | | | | performed at [facility];[address] | | LAB | | | | [address];[place] | | | | | | [address] | | | | + + + + + + | Bilirubin | 0.4Comment: Testing | 0.1 - 1.5 mg/dL | EXTERNAL | | | Total | performed at [facility];[address] | | LAB | | | | [address];[place] | | | | | | [address] | | | | + + + + + + | ALP, | 129 (H)Comment: Testing | 35 - 115 U/L | EXTERNAL | | | External | performed at [facility];[address] | | LAB | | | | [address];[place] | | | | | | [address] | | | | + + + + + + | AST | 39Comment: Testing | 10 - 45 U/L | EXTERNAL | | | | performed at [facility];[address] | | LAB | | | | [address];[place] | | | | | | [address] | | | | + + + + + + | ALT | 38Comment: Testing | 10 - 65 U/L | EXTERNAL | | | | performed at [facility];[address] | | LAB | | | | [address];[place] | | | | | | [address] | | | | + + + [...] | | | | | | at [facility];[address];[place] [address] | | | | + + + + + + | CK, Total | 151Comment: Testing | 30 - 240 U/L | EXTERNAL | | | | performed at [facility];[address] | | LAB | | | | [address];[place] | | | | | | [address] | | | | + + + [...] | | | | | performed at [facility];[address] | | | | | | [address];[place] | | | | | | [address] | | | | + + + + + + | aPTT, | 26Comment: Testing | 23 - 32 seconds | EXTERNAL | | | Patient | performed at [facility];[address] | | LAB | | | | [address];[place] | | | | | | [address] | | | | + + + + + + | CK-MB | 3.9 (H)Comment: Testing | 0.5 - 3.6 ng/mL | EXTERNAL | | | | performed at [facility];[address] | | LAB | | | | [address];[place], [place] | | | | | | [address] | | | | + + + [...] | | | | | | ACUTE ME Testing | | | | | | performed at [facility];[address] | | | | | | [address];[place], [place] | | | | | | [address] | | | | + + + [...]
--- OUTSIDE RECORDS SUMMARY | ~2019-12-24 | XMS | Encounter Summary ---
Demographics + + + | Address | [address] | | | [place] [address] | + + + | Home Phone | | + + + | Preferred Language | Unknown | + + + | Marital Status | Unknown | + + + | Zoroastrian Affiliation | Unknown | + + + [...] Team Providers + +------+ + | Care Breakfast Attendant Name | Role | Phone | + [...] + | 01/28/ | Emergency | [facility] | | | | 2014 | | Department [address] | | | | | | [address] | | | | | | [facility] | | | | | | [place], [place] | | | | | | [address] | | | | | | [phone] | | | +--------+ + + + [...]
--- OUTSIDE RECORDS SUMMARY | ~2019-12-24 | XMS | Encounter Summary ---
Demographics + + + | Address | [address] | | | [place] [address] | + + + | Home Phone [...] Team Providers + +------+ + | Care Business Services Officer Name | Role | Phone | + +------+ + | Yovani Santana MD | PCP | | + +------+ + Encounter Details +--------+ + + + + | Date | Type | Department | Care Team | Description | +--------+ + + + + | 01/28/ | Hospital | [facility] | Jacob Smith, | | | 2014 - | Encounter | [facility] | MD [address] | | | | | CARE FLO[address] | [place] [address] | | | 02/03/ | | [address] | [phone] | | | 2014 | | [place], [place] | | | | | | [address] | | | | | | [phone] | | | +--------+ + + + [...] Filed: 02/12/15 0924 Date of Service: 02/03/15 102 Status: Signed N[employer] Weaver: Jose Maria Espinal MD (Physician) Related Notes: Original Note by Jose Maria Espinal MD (Physician) filed at 02/04/15 1343 [facility] Service: Hospitalist Physician Discharge Summary Patient ID: [...] 2-4 lp, Presented as a transfer from [facility] in [place] for fever of 101 and altered mental s tatus. She was discharged from [facility] on 01/09/15 for elevated troponin [...] antibiotics. She was brought back in to [facility] for fever and confusion. UA and CXR reportedly negative there. SBP was 90s. She had formed stool there but en route here she did develop watery stool, tested C diff + here.".......per admitting MD/Dr. Smith . The patient was admitted to [facility] with a diagnosis of Clostridium difficile infection while she was being transferred from [facility] with fever and altered mental status. Th e patient has underlying immunosuppression secondary to a remote history of liver transplant on chronic immunosuppressive therapy with azathioprine and cyclosporin. Following her trans fletcher to [facility], she was started on oral [...] medically stable for discharge to return to [facility] in [place] on Jan. ADDITIONAL ISSUES 1. Recurrent atelectasis. [...] to reclining at 30-degree angle. The pat karen has a body habitus as such that [...] infection. This point was reiterated to Ms. Ernst willis viera and she seems to understand that. ADDITIONAL ISSUES Hypomagnesemia. The patient has demonstrated recurrent low levels of magnesium for which sh e was requiring nearly daily supplementation of magnesium. [...] days. I would urge managing physician at [facility] facility where the patient resides in [facility] to check anothe r magnesium level [...] Procedure: COLONOSCOPY; Surgeon: Juan Ramey MD; Location: [facility] ENDOSCOPY; Service: Gastroenterology; Laterality: N/A; [...] behavior is normal. LABS: Recent Labs Lab 02/03/15 0324 02/02/15 0317 02/01/15 0326 WBC 8.81 8.59 8.36 HGB 9.6* 9.7* 9.4* HCT 28.8* 29.6* 29.1* PLT 216 181 174 Recent Labs Lab 02/03/15 0324 02/02/15 1412 02/02/15 0317 02/01/15 0326 NA 136 -- 138 137 K 4.0 3.7 3.2* 3.8 CL 102 -- 103 111* CO2 33* -- 31 25 BUN 9 -- 10 13 CREATININE 0.82 -- 0.83 0.74 PROT 6.3 -- 6.2* 5.9* BILITOT 0.5 -- 0.5 0.4 ALT 21 -- 15 14 AST 53* -- 35 23 Phosphorus: Recent Labs Lab 02/03/15 0324 PHOS 2.7 Recent Labs Lab 02/03/15 0324 02/02/15 1412 02/02/15 0317 MG 1.4* 1.7 1.3* Recent Labs Lab 01/28/15 1447 TSH 1.71 Recent Labs Lab 01/28/15 1447 CKTOTAL 266* TROPONINI 0.083 CKMBINDEX 0.4 Disposition: SNF Follow up: Ki De Jesus DO [address] [facility] [address] [place] [address] Schedule an appointment as soon as possible [...] Get Your Medications You need to picker and sorter load and unload these prescriptions. We sent some of them to a specific pharmacy. Go t o these places to get your medications. [facility] - [place], [place] - [address] - lactobacillus granules [address] [facility] [place] [address] You may get the following medications from any pharmacy - HYDROcodone-acetaminophen 10-325 MG per tablet - vancomycin 25 mg/mL Solgiovanni Espinal MD 02/03/2015 10:29 AM Discharge took [...] Management by Pedro Partida RN at 02/03/15 711 Author: Pedro Partida RN Service: (none) Author Type: Registered Nurse Filed: 02/03/151608 Date of Service: 02/03/151608 Status: Signed [employer] Weaver: Pedro Partida RN (Registered Nurse) 02/03/15 3123 Discharge Planning Evaluation Admitting Diagnosis Elevated temp, CKD, post liver transplant Readmission Yes-within 14 days Reason for readmission Fever, confusion, C.dif [facility] disposition [facility] Needs met at last discharge Yes Picked up discharge Rx medications Yes Started prescribed DC meds Yes Understood discharge instructions Yes Assistance available Yes Concerns for meeting needs No Caregiver after Discharge Yes Mental Status Oriented Anticipated Disposition Facility Type penitentiary facility [facility] Other (comment) ([facility] in [place]) Disposition: Return to [facility] Transportation: Facility van to transport. All orders, [...] 02/03/15899 Date of Service: 02/02/151521 Status: Signed [employer] Weaver: Jose Maria Espinal MD (Physician) Related Notes: Original Note by Jose Maria Espinal MD (Physician) filed at 02/02/151949 [facility] Service: Hospitalist Progress Note Pt: Cole Ernst AGE/SEX: 69 y.o. female : 1945 ROOM: [facility]/660- History of Present Illness: " The patient is a 69 y.o. female with significant past medical history of liver transplant int he 90s on cyclosporine and imuran, chronic pain on methadone, CKD st 3, chronic home O2 of unclear etiology from 2-4 lpm, Presented as a transfer from [facility] in [place] for fever of 101 and altered mental s tatus. She was discharged from [facility] on 01/09/15 for elevated troponin [...] antibiotics. She was brought back in to [facility] for fever and confusion. UA and [...] sulfate. Case management establishing [facility] of the [facility] [place] to accept the patient in the next [...] behavior is normal. LABS: Recent Labs Lab 02/02/1531602/01/1532501/31/15436 WBC 8.59 8.36 10.30 HGB 9.7* 9.4* 9.7* HCT 29.6* 29.1* 29.9* PLT 181 174 162 Recent Labs Lab 02/02/15141102/02/1531602/01/156 01/31/15 0437 NA -- 138 137 139 K 3.7 3.2* 3.8 4.2 CL -- 103 111* 112* CO2 -- 31 25 27 BUN -- 10 13 19 CREATININE -- 0.83 0.74 1.01* PROT -- 6.2* 5.9* 5.9* BILITOT -- 0.5 0.4 0.3 ALT -- 15 14 14 AST -- 35 23 24 Phosphorus: Recent Labs Lab 02/02/15316 PHOS 2.9 Recent Labs Lab 02/02/152 02/02/1531602/01/15 032 MG 1.7 1.3* 1.4* Recent Labs Lab 01/28/15 1447 TSH 1.71 Recent Labs Lab 01/28/15 1447 CKTOTAL 266* TROPONINI 0.083 CKMBINDEX 0.4 Diagnostic: Ct Abdomen Pelvis Without Contrast 01/14/2015 HISTORY: 69 year-old female with abdominal pain TECHNIQUE: CT through the abdo men and pelvis. Performed without the administration of IV contrast. Examination performed w ith enteric contrast. Prior study for comparison: None FINDINGS: Cardiac Rn 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 deg enerative changes of [...] LA/Ao: 1.57 D-E Excursion: 2.11 cm E-F [place]: 0.09 m/s EPSS: 0.48 cm HR: 77.41 [...] 21.32 cm MCO: 394.46 ms MV A Ramona: 0.39 m/s MV DecT: 206.91 ms MV E Ramona: 0.66 m/s MV E/A R atio: 1.69 [...] mmHg TR Vmax: 2.65 m/s TV A Ramona: 0.66 m/s TV Dec [place]: 4.36 m/s2 TV Dec Time: 184.41 ms TV E Ramona: 0.80 m/s TV E/A Rat io: 1.21 Speedometer Mechanic: NEDRA Authenticated by: Gil Martines MD Report [...] Procedure: COLONOSCOPY; Surgeon: Juan Ramey MD; Location: [facility] END[facility]COPY; Service: Gastroenterology; Laterality: N/A; [...] by Jose Maria Espinal MD at 02/01/15 0159 Author: Jose Maria Espinal MD Service: Hospitalist Author Type: Physician Filed: 02/02/15 1521 Date of Service: 02/01/15 5507 Status: Signed [employer] Weaver: Jose Maria Espinal MD (Physician) Related Notes: Original Note by Jose Maria Espinal MD (Physician) filed at 02/02/15 7291 [facility] Service: Hospitalist Progress Note Pt: Cole Ernst AGE/SEX: 69 y.o. female : 1945 ROOM: [address] [place] [address] History of Present Illness: " The patient is a 69 y.o. female with significant past medical history of liver transplant int he 90s on cyclosporine and imuran, chronic pain on methadone, CKD st 3, chronic home O2 of unclear etiology from 2-4 lpm, Presented as a transfer from [facility] in [place] for fever of 101 and altered mental s tatus. She was discharged from [facility] on 01/09/15 for elevated troponin [...] antibiotics. She was brought back in to [facility] for fever and confusion. UA and [...] establishing readiness of the faci lity in [place] to accept the patient in the next [...] C) Temporal 65 16 99 % - 01/31/15 2026 156/71 mmHg - - 71 - [...] contrast. Prior study for comparison: None FINDINGS: Cardiac Rn 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 deg enerative changes of [...] LA/Ao: 1.57 D-E Excursion: 2.11 cm E-F [place]: 0.09 m/s EPSS: 0.48 cm HR: 77.41 [...] 21.32 cm MCO: 394.46 ms MV A Ramona: 0.39 m/s MV DecT: 206.91 ms MV E Ramona: 0.66 m/s MV E/A R atio: 1.69 [...] mmHg TR Vmax: 2.65 m/s TV A Ramona: 0.66 m/s TV Dec [place]: 4.36 m/s2 TV Dec Time: 184.41 ms TV E Ramona: 0.80 m/s TV E/A Rat io: 1.21 Speedometer Mechanic: NEDRA Authenticated by: Gil Martines MD Report [...] Procedure: COLONOSCOPY; Surgeon: Juan Ramey MD; Location: [facility] END[facility]COPY; Service: Gastroenterology; Laterality: N/A; [...] Currently with normal liver function tests. 3. Uxkyk-vb-kymxsfn liver disease, stage III. Creatinine level has [...] Jose Maria Espinal MD 02/01/2015 5:17 PM ose Maria Hawk MD - 01/31/2015 3:14 PM PDT Progress Notes by Jose Maria Espinal MD at 01/31/15 1514 Author: Jose Maria Espinal MD Service: Hospitalist Author Type: Physician Filed: 01/31/152124 Date of Service: 01/31/151513 Status: Signed [employer] Weaver: Jose Maria Espinal MD (Physician) Related Notes: Original Note by Jose Maria Espinal MD (Physician) filed at 01/31/15 1523 [facility] Service: Hospitalist Progress Note Pt: Cole Ernst AGE/SEX: 69 y.o. female : 1945 ROOM: [facility]/6601-1 History of Present Illness: " The patient is a 69 y.o. female with significant past medical history of liver transplant int he 90s on cyclosporine and imuran, chronic pain on methadone, CKD st 3, chronic home O2 of unclear etiology from 2-4 [facility], Presented as a transfer from [facility] in [place] for fever of 101 and altered mental s tatus. She was discharged from [facility] on 01/09/15 for elevated troponin [...] antibiotics. She was brought back in to [facility] for fever and confusion. UA and [...] - Oral 70 18 98 % - 01/30/15 2147 - - - 68 - - - [...] is normal. LABS: Recent Labs Lab 01/31/1543601/30/1554101/29/15 1900 WBC 10.30 15.91* 17.94* HGB 9.7* 10.2* 10.8* HCT 29.9* 31.6* 33.7* PLT 162 146* 153 Recent Labs Lab 01/31/1543601/30/1542 01/29/15 1900 01/29/15434 NA 139 137 142 137 K 4.2 3.9 3.8 4.4 CL 112* 109 107 106 CO2 27 24 26 24 BUN 19 25 28* 22 CREATININE 1.01* 1.39* 1.8* 1.9* PROT 5.9* 6.1* -- 6.5 BILITOT 0.3 0.4 -- 0.5 ALT 14 14 -- 23 AST 24 29 -- 41 Phosphorus: Recent Labs Lab 01/31/15436 PHOS 2.1* Recent Labs Lab 01/31/15 0437 [...] contrast. Prior study for comparison: None FINDINGS: Cardiac Rn 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 deg enerative changes of [...] LA/Ao: 1.57 D-E Excursion: 2.11 cm E-F [place]: 0.09 m/s EPSS: 0.48 cm HR: 77.41 [...] 21.32 cm MCO: 394.46 ms MV A Ramona: 0.39 m/s MV DecT: 206.91 ms MV E Ramona: 0.66 m/s MV E/A R atio: 1.69 [...] mmHg TR Vmax: 2.65 m/s TV A Ramona: 0.66 m/s TV Dec [place]: 4.36 m/s2 TV Dec Time: 184.41 ms TV E Ramona: 0.80 m/s TV E/A Rat io: 1.21 Speedometer Mechanic: NEDRA Authenticated by: Gil Martines MD Report [...] Procedure: COLONOSCOPY; Surgeon: Juan Ramey MD; Location: [facility]; Service: Gastroenterology; Laterality: N/A; [...] Author: Catina Moon Service: (none) Author Type: Rose Grading Supervisor Filed: 01/31/15 1313 Date of Service: 01/31/15 1313 Status: Signed [employer] Weaver: Catina Moon () Attempted visit. Pt sitting in chair sleeping. No family present. Chaplain Catina Moon onver alessandro Transaction, Provider Unknown - 01/31/2015 11:35 AM PDT Therapy Progress Note by Mahi Yanes PTA at 01/31/15 1135 Author: Mahi Yanes PTA Service: (none) Author Type: Letterpress Printing Machinist Filed: 01/31/15 1410 Date of Service: 01/31/15 1135 Status: Signed [employer] Weaver: Mahi Yanes PTA (Letterpress Printing Machinist) 01/31/15 1135 PT Last Visit PT Received [...] PDT Case Management by Gregg Keene MS, BIOMETRICS SPECIALIST at 01/31/15 1007 Author: Gregg Keene MS, BIOMETRICS SPECIALIST Service: (none) Author Type: Director Motion Picture Filed: 01/31/15 1546 Date of Service: 01/31/15 1007 Status: Addendum [employer] Weaver: Gregg Keene MS, BIOMETRICS SPECIALIST (Director Motion Picture) Related Notes: Original Note by Gregg Keene MS, BIOMETRICS SPECIALIST (Director Motion Picture) filed at 01/31/15 1007 Discharge planning - CM faxed updated clinical to Gi at [facility]. Discharge form s on front of chart for MD signature. CM notified Gi of anticipated d/c this weekend. onver alessandro Transaction, Provider Unknown - 01/30/2015 5:05 PM PDT Therapy Progress Note by Gail Vernon PT at 01/30/15 1705 Author: Gail Vernon PT Service: (none) Author Type: Physical Therapist Filed: 01/30/15 7283 Date of Service: 01/30/15 1705 Status: Signed [employer] Weaver: Gail Vernon PT (Physical Therapist) 01/30/15 1705 PT Last Visit PT Received On 01/30/15 [...] by Jose Maria Espinal MD at 01/30/15 9434 Author: Jose Maria Espinal MD Service: Hospitalist Author Type: Physician Filed: 01/31/15 3207 Date of Service: 01/30/15 1413 Status: Signed [employer] Weaver: Jose Maria Espinal MD (Physician) Related Notes: Original Note by Jose Maria Espinal MD (Physician) filed at 01/30/15 6876 [facility] Service: Hospitalist Progress Note Pt: Cole Ernst AGE/SEX: 69 y.o. female : 1945 ROOM: [address] [place] [address] History of Present Illness: " The patient is a 69 y.o. female with significant past medical history of liver transplant int he 90s on cyclosporine and imuran, chronic pain on methadone, CKD st 3, chronic home O2 of unclear etiology from 2-4 lp, Presented as a transfer from [facility] in [place] for fever of 101 and altered mental s tatus. She was discharged from [facility] on 01/09/15 for elevated troponin [...] antibiotics. She was brought back in to [facility] for fever and confusion. UA and [...] behavior is normal. LABS: Recent Labs Lab 01/30/1542 01/29/15189901/29/15 0435 WBC 15.91* 17.94* 18.47* HGB 10.2* 10.8* 10.8* HCT 31.6* 33.7* 32.7* PLT 146* 153 151 Recent Labs Lab 01/30/15 0542 01/29/15 1900 01/29/15 0435 01/28/15 1447 NA 137 142 137 -- 137 [...] interval not displayed. Phosphorus: Recent Labs Lab 01/30/15 0542 PHOS 2.5 Recent Labs Lab 01/30/15 0542 01/29/15 0435 01/28/15 1447 MG 1.9 1.8 1.1* Recent [...] contrast. Prior study for comparison: None FINDINGS: Cardiac Rn 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 deg enerative changes of [...] LA/Ao: 1.57 D-E Excursion: 2.11 cm E-F [place]: 0.09 m/s EPSS: 0.48 cm HR: 77.41 [...] 21.32 cm MCO: 394.46 ms MV A Ramona: 0.39 m/s MV DecT: 206.91 ms MV E Ramona: 0.66 m/s MV E/A R atio: 1.69 [...] mmHg TR Vmax: 2.65 m/s TV A Ramona: 0.66 m/s TV Dec [place]: 4.36 m/s2 TV Dec Time: 184.41 ms TV E Ramona: 0.80 m/s TV E/A Rat io: 1.21 Speedometer Mechanic: NEDRA Authenticated by: Gil Martines MD Report [...] Procedure: COLONOSCOPY; Surgeon: Juan Ramey MD; Location: [facility] END[facility]COPY; Service: Gastroenterology; Laterality: N/A; [...] Patient's live r functions remain normal. 3. Bwbpa-dj-mogdsgt kidney disease stage III. Creatinine level has improved from 1.8 to 1.3 9 with IV fluids overnight. 4. Dyslipidemia. Statin on hold for now. 5. Hypothyroidism. Continue levothyroxine. 6. Severe protein-calorie malnutrition. Continue nutritional supplements/dietitian consult ordered. 7. DVT prophylaxis. Subcutaneous heparin. 8. History of hypertension. Continue metoprolol. Jose Maria Espinal MD 01/30/2015 2:14 PM Ozzie, Jose Maria Khan MD - 01/29/2015 4:51 PM PDT Progress Notes by Jose Maria Espinal MD at 01/29/151650 Author: Jose Maria Espinal MD Service: Hospitalist Author Type: Physician Filed: 01/30/15956 Date of Service: 01/29/151650 Status: Signed [employer] Weaver: Jose Maria Espinal MD (Physician) Related Notes: Original Note by Jose Maria Espinal MD (Physician) filed at 01/29/152024 [facility] Service: Hospitalist Progress Note Pt: Cole Ernst AGE/SEX: 69 y.o. female : 1945 ROOM: [address] [place] [address] History of Present Illness: " The patient is a 69 y.o. female with significant past medical history of liver transplant int he 90s on cyclosporine and imuran, chronic pain on methadone, CKD st 3, chronic home O2 of unclear etiology from 2-4 lpm, Presented as a transfer from [facility] in [place] for fever of 101 and altered mental s tatus. She was discharged from [facility] on 01/09/15 for elevated troponin [...] antibiotics. She was brought back in to [facility] for fever and confusion. UA and [...] (36.7 C) Oral 73 17 93 % 01/28/152011 109/55 mmHg 98.1 F (36.7 C) Oral [...] behavior is normal. LABS: Recent Labs Lab 01/29/15 0435 01/28/15 1447 WBC 18.47* 19.78* HGB 10.8* 12.6 [...] -- 51* Phosphorus: Recent Labs Lab 01/29/15 0435 PHOS 3.5 Recent Labs Lab 01/29/15 0435 [...] contrast. Prior study for comparison: None FINDINGS: Cardiac Rn 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 deg enerative changes of [...] LA/Ao: 1.57 D-E Excursion: 2.11 cm E-F [place]: 0.09 m/s EPSS: 0.48 cm HR: 77.41 [...] 21.32 cm MCO: 394.46 ms MV A Ramona: 0.39 m/s MV DecT: 206.91 ms MV E Ramona: 0.66 m/s MV E/A R atio: 1.69 [...] mmHg TR Vmax: 2.65 m/s TV A Ramona: 0.66 m/s TV Dec [place]: 4.36 m/s2 TV Dec Time: 184.41 ms TV E Ramona: 0.80 m/s TV E/A Rat io: 1.21 Speedometer Mechanic: NEDRA Authenticated by: Gil Martines MD Report [...] Procedure: COLONOSCOPY; Surgeon: Juan Ramey MD; Location: [facility]; Service: Gastroenterology; Laterality: N/A; [...] 01/29/2015 3:25 PM PDT Case Management by Perdo Partida RN at 01/29/15 1525 Author: Pedro Partida RN Service: (none) Author Type: Registered Nurse Filed: 01/29/15 1541 Date of Service: 01/29/15 1525 Status: Signed [employer] Weaver: Pedro Partida RN (Registered Nurse) 01/29/15 1521 Discharge Planning Evaluation Admitting Diagnosis Intestinal infection C.dif. Readmission Yes-within 14 days Reason for readmission Intestinal infection C.dif Last discharge disposition [facility] Needs met at last discharge Yes Picked up discharge Rx medications Not applicable Followed up with primary or specialty provider Yes Understood discharge instructions Yes Assistance available Yes Living Arrangements Alone Support Systems Friends/neighbors Type of Residence Private residence House type Apartment Independent with ADL's Yes Independent with Mobility Yes Caregiver after Discharge Yes Mental Status Oriented Anticipated Disposition Facility Type penitentiary facility [facility] Care Facility Other (comment) ([facility] in [place]) Met with: patient and discussed discharge planning, Pt is a 69 y.o., female who was discharged from [facility] [address] [facility]. Her sister, Renée Tipton is emergency contact, . Patient's PCP is: K[facility] DE JESUS Patient's insurance: Medicare Coverage concerns: Medication coverage/concerns: Community resources utilized / needed: Assistance in transportation: Identification of any specific education / training: Barriers to Discharge / Alternative housing needed: Anticipated DCP: Return to [facility] PEDRO PARTIDA RN onver alessandro Transaction, Provider Unknown - 01/29/2015 8:55 AM PDT Therapy Progress Note by Barbara Edmond PT at 01/29/15 08 Author: Barbara Edmond PT Service: (none) Author Type: Physical Therapist Filed: 01/29/15932 Date of Service: 01/29/15854 Status: Signed [employer] Weaver: Barbara Edmond PT (Physical Therapist) 01/29/15854 PT [...] to SNF after current hospital stay. Just REAL ESTATE RENTAL AGENT Júnior ADL's and Júnior mobility using 4ww for short room distances, had been using manual w/c in hallway at SNF. Reports a few falls at facility ov er last week, otherwise denies falls over last 6mos. Was getting therapies at facility. Prior Function Level of [place] Modified independent with ADLs;Modified independent with functional [...] Barriers to Discharge Physical Deficits Impacting Functional [place];Self-care Deficit s Impacting Functional [place];Equipment Needs (see comment);Pain Recommendation Comments Needs return [...] Patient limited by pain Nurse Made Aware ROB Henriquez notified of pt status and recommendations Safety Devices Safety Devices in Place (call light in reach, bed alarm, RN in room) Plan Treatment/Interventions Balance training;Bed mobility training;Gait training;Monitor O2 sat s;Monitor vital signs;Review precautions;Therapeutic exercise;Transfer training PT Frequency 5-7x/wk;Once per day;Twice a day Care Duration (# of days) 7 # of days Recommendation Recommendations SNF Barriers to Discharge Physical Deficits Impacting Functional [place];Self-care Deficit s Impacting Functional [place];Equipment Needs (see comment);Pain Recommendation Comments Needs return [...] 01/29/15831 Date of Service: 01/29/15830 Status: Signed [employer] Weaver: Malick Ramos RN (Registered Nurse) Infection Prevention Note: Patient stool is positive for C. Diff. Contact Enteric Precautions are required until furt her notice. Thank you. Malick Ramos RN, BA, Network Operations Manager onver alessandro Transaction, Provider Unknown - 01/28/2015 3:23 PM PDT Progress Notes by Jimena Duarte RPH at 01/28/15 152 Author: Jimena Duarte RPH Service: (none) Author Type: Pharmacist Filed: 01/28/151522 Date of Service: 01/28/151522 Status: Signed [employer] Weaver: Jimena Duarte RPH (Pharmacist) Zosyn Extended Infusion Initial Consult-Per Dr. Jacob Ernst 69 y.o. female CrCl cannot be calculated (Unknown ideal weight.). NEUTROPHILS ABS Date Value Ref Range Status 01/18/2015 3.26 1.90 - 7.40 K/uL Final Comment: Testing performed at [facility], [address] [place] [id number] CREATININE Date Value Ref Range Status 01/19/2015 0.96 0.50 - 1.00 mg/dL Final Comment: Testing performed at [facility], [address] [place] [id number] Zosyn extended Infusion loading and maintenance dose guidelines Loading Dose 4.5 g IV Over 30 minutes CrCl >20 ml/min 3.375 g IV Q 8 hours Over 4 hours CrCl 10-20 ml/min 3.375 g IV Q 12 hours Over 4 hours CrCl <10, HD, PD Follow [facility] Dosage Adjustments in Renal Dysfunction [...] 01/28/151515 Date of Service: 01/28/151515 Status: Signed N[employer] Weaver: Jimena Duarte RPH (Pharmacist) Renal Dosing Monitoring: [...] Jimena Duarte docume nted in this encounter H&P Notes Jacob Smith MD - 01/28/2015 12:01 PM PDTFormatting of this note might be different f rom the original. H&P by Jacob Smiht MD at 01/28/15 1201 Author: Jacob Smith MD Service: (none) Author Type: Physician Filed: 01/29/15 0038 Date of Service: 01/28/15 1201 Status: Addendum N[employer] Weaver: Jacob Smith MD (Physician) Related Notes: Original Note by Jacob Smith MD (Physician) filed at 01/28/15 1741 [facility] Service: Hospitalist Admission History & Physical Pt: Cole Ernst AGE/SEX: 69 y.o. female ROOM: [facility]660-1 PCP: KI DE JESUS : 1945 TODAY'S DATE: 01/28/2015 Date of Admission: 01/28/2015 Chief Complaint: "I'm not sure" History of Present Illness: The patient is a 69 y.o. female with significant past medical history of liver transplant i nt he 90s on cyclosporine and imuran, chronic pain on methadone, CKD st 3, chronic home O2 o f unclear etiology from 2-4 lpm, Presented as a transfer from [facility] in [place] for fever of 101 and altered mental s tatus. She was discharged from [facility] on 01/09/15 for elevated troponin [...] antibiotics. She was brought back in to [facility] for fever and confusion. UA and CXR reportedly negative there. SBP was 90s. She had formed stool there but en route here she did develop watery stool, tested C diff + here. ROS: Complete ROS done, all 12 systems negative unless otherwise stated Limited due to mental status + fever, fatigue, diarrhea , dysuria, lower abdominal pain No fevers, chills, fatigue, change in appetite, weight loss, headache, dizziness, focal wea kness. No cough, colds, shortness of breath, chest pain, palpitations. No nausea, vomiting, constipation, frequency, hematuria, hematochezia and melena. PMHx: Past Medical History Diagnosis Date Stroke (HCC) Hyperlipidemia Hypertension PSHx: Past Surgical History Procedure Laterality Date Liver transplant 192 Gallbladder surgery 1991 Splenectomy Colonoscopy N/A 01/17/2015 Procedure: COLONOSCOPY; Surgeon: Juan Ramey MD; Location: [facility] ENDOSCOPY; Service: Gastroenterology; Laterality: N/A; Prior To admission Meds: Prior to Admission medications Medication Sig Start Date End Date Taking? Authorizing Provider aspirin EC 81 MG EC tablet Take 1 tablet by mouth daily with breakfast. 01/19/15 01/19/16 Bert Hardy MD azaTHIOprine (IMURAN) 50 MG tablet Take 50 mg by mouth daily. Historical Provider Cholecalciferol 2000 UNITS CAPS Take 2,000 Units by mouth daily. Historical Provider cycloSPORINE (SANDIMMUNE) 25 MG capsule Take 75 mg by mouth 2 (two) times daily. Histori laith Provider fluticasone (FLONASE) 50 MCG/ACT nasal 1 spray by Each Nare route daily. Historical Prov ider gabapentin (NEURONTIN) 400 MG capsule Take 1 capsule by mouth 2 (two) times daily. 01/19/15 01/19/16 Emma Hardy MD HYDROcodone-acetaminophen (NORCO) 10-325 MG per tablet Take 1 tablet by mouth every 4 (four ) hours as needed. 01/19/15 01/29/15 Emma Hardy MD levothyroxine (SYNTHROID, LEVOTHROID) 125 MCG tablet Take 125 mcg by mouth every morning be fore breakfast. Historical Provider metoprolol (LOPRESSOR) 100 MG tablet Take 100 mg by mouth 2 (two) times daily. Historica l Provider pravastatin (PRAVACHOL) 10 MG tablet Take 10 mg by mouth nightly. Historical Provider Vit-Fe Fumarate-FA ( MULTIVITAMIN & MINERALS W IRON/FA) 27-0.8 MG TABS tab let Take 1 tablet by mouth daily. 01/19/15 Emma Hardy MD vitamin B-12 (CYANOCOBALAMIN) 1000 MCG tablet Take 1,000 mcg by mouth daily. Historical Provider Medications scheduled: Allergies: Allergies Allergen Reactions Codeine Nausea and Vomiting Family Hx: Family History Problem Relation Age of Onset Stroke Brother Kidney disease Neg Hx Diabetes Father Social Hx: History Substance Use Topics Smoking status: Never Smoker Smokeless tobacco: Not on file Alcohol Use: 0.0 oz/week 0 Not specified per week Comment: beer / night Objective: Vital Signs: BP 130/63 mmHg | Pulse 104 | Temp(Src) 98.3 F (36.8 C) (Oral) | Resp 20 | Wt 95.5 kg (2 10 lb 8.6 oz) | SpO2 93% Physical Exam: Constitutional: Alert and oriented to self only. No distress. Pleasant spirits. Communicat kj and cooperative HEENT: atraumatic, moist mucous membranes, pink conjunctivae and anicteric sclerae. Neck supple Cardiovascular: Normal rate and rhythm. Normal heart sounds with S1 and S2. No appreciable mumrurs. Pulmonary: Non labored breathing. Breath sounds are diminished in bases Abdominal: Soft and mild tenderness in lower abdomen. Bowel sounds are present. No rebound or guarding. Obesity limits exam Extremities: No edema or cyanosis. Neurological: AAO x1. No CN deficit. Grossly non focal. Moves all extremities Skin: Warm and dry. No diaphoresis Psychiatric: Calm , no delirium Data: Recent Labs Lab 01/28/15 1447 WBC 19.78* HGB 12.6 HCT 38.9 PLT 167 Recent Labs Lab 01/28/15 1447 NA 137 K 3.4* CL 101 CO2 27 BUN 18 CREATININE 1.3* PROT 7.9 BILITOT 0.6 ALT 30 AST 51* Phosphorus: Lab Results Component Value Date PHOS 3.0 01/28/2015 Invalid input(s): LABALBU Recent Labs Lab 01/28/15 1447 MG 1.1* No results for input(s): AMYLASE in the last 168 hours. No results for input(s): PHART, PO2ART, MSV3HMC, V9QGZMYP, BEART in the last 168 hours. No results for input(s): APTT, INR, PTT in the last 168 hours. Recent Labs Lab 01/28/15 1447 TSH 1.71 Recent Labs Lab 01/28/15 1447 CKTOTAL 266* TROPONINI 0.083 CKMBINDEX 0.4 Problem List: Principal Problem: Intestinal infection due to Clostridium difficile Active Problems: Liver replaced by transplant (HCC) Essential hypertension, benign Dyslipidemia Anemia Hypothyroidism CKD (chronic kidney disease), stage III Other severe protein-calorie malnutrition (HCC) Feve Assessment and Plan: Principal Problem: C diff colitis with sepsis - She has immunosuppressants on board but she is clinically stable at the moment. With this and significant leukocytosis, will start on oral vancomycin. Follow blood cultures dr quezada from [facility]. UA was reportedly negative. RN to retrieve report. Hydration ordered. Contact enteric precautions. Likely to need at least 2 midnight stay due to sepsi s. Discussed briefly with Dr Tadeo, Consult ID formally as needed . - of note, initially there was no report of diarrhea and the CXR here showed PNA cannot be excluded, so I ordered zosyn and levaquin for possible HAP. However She later Had loos e stool and C diff came back + so I then stopped zosyn levaquin and switched to vancomycin . Lactic acid elevated but VS fairly stable, I think she is stable on the floors at this scarlett e. Active Problems: Acute on CKD St III - likely due to volume depletion. Will hydrate with NS at 75 cc/hr x 12 hours, she has alr [place] received 3 L from [facility]' of note. BNP was elevated but I think she is clinically dry. Echo Dec 2014 EF is 65-70% , will not repeat Liver replaced by transplant (HCC) - continue with azathioprine and cyclosporine, monitor LFTs. Currently a bit elevated, rigoberto l hydrate and monitor, This has been stable for a number of years. Essential hypertension, benign - Continue B jann Dyslipidemia - hold statin for now Anemia, macrocytic - b12 and folate were WNL last admission, on B12 supplement Hypothyroidism -TSH WNL, continue with levothyroxine Other severe protein-calorie malnutrition (HCC) dietary consult Hypokalemia/hypomagensemia - replete Heparin subcutaneous for DVT prophylaxis PT evaluation when more stable More than 70 mins were spent on the review of H/P, imaging and labs, formulation of assessm ent and plan, discussion with the patient/family, staff and providers. Anticipate at least 2 midnight stay for monitoring and IV medications Code Status: Full Code Primary Care Physician: KI SMITH MD 01/28/2015 4:17 PM documented in this encounter Miscellaneous Notes Plan of Care - Conversion Transaction, Provider Unknown - 01/30/2015 12:06 AM PDT Plan of Care by Shanita Wilson RN at 01/30/15 0006 Author: Shanita Wilson RN Service: (none) Author Type: Registered Nurse Filed: 01/30/155 Date of Service: 01/30/155 Status: Signed [employer] Weaver: Shanita Wilson RN (Registered Nurse) Problem: Pain Goal: Patient s pain/discomfort is manageable Assess and monitor patient s pain using appropriate pain scale. Collaborate with interdis ciplinary team and initiate plan and interventions as ordered. Re-assess patient s pain le ramona approximately 1-2 hours after pain management intervention. Premedicate as needed. Outcome: Progressing Pt continues to state that the L great toe is in pain. This is well controlled with oral m edication. docume murali in this encounter Plan of Treatment +--------+ + + + + | Date | Type | Specialty | Care Team | Description | +--------+ + + + + | 02/05/ | Virtual | Nephrology | Emil Oliva MD | | 2019 | Office | | [address] [facility] | | | | Visit | | [address] [place], [place] | | | | | | [id number] | | | | | | | | +--------+ + + + + | 03/20/ | Office | Cardiology | Jessica Barnes | | | 2020 | Visit | | [address] | | | | | [address] | | | | | | [place] [address] | | | | | | [phone] | | | | | | | | +--------+ + + + + documented as of this encounter Procedures + +--------+ + + + | Procedure Name | Priori | Date/Time | Associated Diagnosis | Comments | | | ty | | | | + +--------+ + + + | EXTERNAL LAB: GREGG | Routin | 02/03/2015 | | Results [...] EXTERNAL | | | | performed at [facility], [address] | K/uL | LAB | | | | [address], | | | | | | [place] [address] | | | | + + + + + + | Non- | 2.72 (L)Comment: Testing | 3.70 - 5.10 | EXTERNAL | | | Red Blood | performed at [facility], [address] | M/uL | LAB | | | Cells | [address], | | | | | Counted | [place] [address] | | | | + + + + + + | Hemoglobin | 9.6 (L)Comment: Testing | 11.3 - 15.5 | EXTERNAL | | | | performed at [facility], [address] | g/dL | LAB | | | | [address], | | | | | | [place] [address] | | | | + + + + + + | Hematocrit, | 28.8 (L)Comment: Testing | 34.0 - 46.0 % | EXTERNAL | | | POC | performed at [facility], [address] | | LAB | | | | [address], | | | | | | [place] [address] | | | | + + + + + + | MCV | 106.0 (H)Comment: | 80.0 - 100.0 fl | EXTERNAL | | | | Testing performed at | | LAB | | | | [facility], [address] | | | | | | [place] | | | | | | [address] | | | | + + + + + + | MCH | 35.2 (H)Comment: Testing | 27.0 - 34.0 pg | EXTERNAL | | | | performed at [facility], [address] | | LAB | | | | [address], | | | | | | [place] [address] | | | | + + + + + + | MCHC | 33.2Comment: Testing | 32.0 - 35.5 | EXTERNAL | | | | performed at [facility], [address] | g/dL | LAB | | | | [address], | | | | | | [place] [address] | | | | + + + + + + | RDW-CV | 53.4 (H)Comment: Testing | 37 - 53 fl | EXTERNAL | | | | performed at [facility], [address] | | LAB | | | | [address], | | | | | | [place] [address] | | | | + + + + + + | Platelet | 216Comment: Testing | 150 - 400 K/uL | EXTERNAL | | | Count | performed at [facility], [address] | | LAB | | | Plasma | [address], | | | | | | [place] [address] | | | | + + + + + + | MPV | 10.5Comment: Testing | fl | EXTERNAL | | | | performed at [facility], [address] | | LAB | | | | [address], | | | | | | [place] [address] | | | | + + + + + + | Differentia | MANUALComment: Testing | | EXTERNAL | | | l Type | performed at [facility], [address] | | LAB | | | | [address], | | | | | | [place] [address] | | | | + + + + + + | Segmented | 35Comment: Testing | % | EXTERNAL | | | Neutrophils | performed at [facility], [address] | | LAB | | | Manual | [address], | | | | | | [place] [address] | | | | + + + + + + | % Bands | 1Comment: Testing | % | EXTERNAL | | | | performed at [facility], [address] | | LAB | | | | [address], | | | | | | [place] [address] | | | | + + + + + + | Lymphocytes | 44Comment: Testing | % | EXTERNAL | | | Manual | performed at [facility], [address] | | LAB | | | | [address], | | | | | | [place], [place] [address] | | | | + + + + + + | Monocytes | 12Comment: Testing | % | EXTERNAL | | | Manual | performed at [facility], [address] | | LAB | | | | [address], | | | | | | [place], [place] [address] | | | | + + + + + + | Eosinophils | 8Comment: Testing | % | EXTERNAL | | | Manual | performed at [facility], [address] | | LAB | | | [address], | | | | | | [place] [address] | | | | + + + + + + | Absolute | 3.08Comment: Testing | 1.90 - 7.40 | EXTERNAL | | | Neutrophils | performed at [facility], [address] | K/uL | LAB | | | | [address], | | | | | | [place] [address] | | | | + + + + + + | Bands | 0.09Comment: Testing | 0.00 - 0.20 | EXTERNAL | | | Manual | performed at [facility], [address] | K/uL | LAB | | | | [address], | | | | | | [place] [address] | | | | + + + + + + | Absolute | 3.88Comment: Testing | 1.00 - 3.90 | EXTERNAL | | | Lymphocytes | performed at [facility], [address] | K/uL | LAB | | | | [address], | | | | | | [place] [address] | | | | + + + + + + | Absolute | 1.06 (H)Comment: Testing | 0.00 - 0.80 | EXTERNAL | | | Monocytes | performed at [facility], [address] | K/uL | LAB | | | | [address], | | | | | | [place] [address] | | | | + + + + + + | Absolute | 0.70 (H)Comment: Testing | 0.00 - 0.50 | EXTERNAL | | | Eosinophils | performed at [facility], [address] | [address] | LAB | | | | [address], | | | | | | [place] [address] | | | | + + + + + + | RBC | NORMAL PLT MORPHComment: | | EXTERNAL | | | Morphology | NORMAL RBC MORPHTesting | | LAB | | | | performed at [facility], [address] | | | | | | [address], | | | | | | [place] [address] | | | | + + + [...] EXTERNAL | | | | performed at [facility], [address] | | LAB | | | | [address], | | | | | | [place] [address] | | | | + + + [...] EXTERNAL | | | | performed at [facility], [address] | | LAB | | | | [address], | | | | | | [place] [address] | | | | + + + [...] | | | | | [place] [address] | | | | + + + + + + | Cl | 102Comment: Testing | 99 - 109 mmol/L | EXTERNAL | | | | performed at [facility], [address] | | LAB | | | | [address], | | | | | | [place] [address] | | | | + + + + + + | CO2 | 33 (H)Comment: Testing | 23 - 32 mmol/L | EXTERNAL | | | | performed at [facility], [address] | | LAB | | | | [address], | | | | | | [place] [address] | | | | + + + + + + | Anion Gap | 5Comment: Testing | 5 - 20 mmol/L | EXTERNAL | | | | performed at [facility], [address] | | LAB | | | | [address], | | | | | | [place] [address] | | | | + + + + + + | Glucose, | 105 (H)Comment: Testing | 65 - 99 mg/dL | EXTERNAL | | | Fasting | performed at [facility], [address] | | LAB | | | | [address], | | | | | | [place] [address] | | | | + + + + + + | BUN | 9Comment: Testing | 8 - 25 mg/dL | EXTERNAL | | | | performed at [facility], [address] | | LAB | | | | [address], | | | | | | [place] [address] | | | | + + + + + + | Creatinine | 0.82Comment: Testing | 0.50 - 1.00 | EXTERNAL | | | | performed at [facility], [address] | mg/dL | LAB | | | | [address], | | | | | | [place] [address] | | | | + + + + + + | BUN/Creatin | 11Comment: Testing | | EXTERNAL | | | ine Ratio | performed at [facility], [address] | | LAB | | | | [address], | | | | | | [place] [address] | | | | + + + + + + | Calcium | 8.5Comment: Testing | 8.5 - 10.5 | EXTERNAL | | | | performed at [facility], [address] | mg/dL | LAB | | | | [address], | | | | | | [place] [address] | | | | + + + + + + | Protein, | 6.3Comment: Testing | 6.3 - 8.2 g/dL | EXTERNAL | | | Total | performed at [facility], [address] | | LAB | | | [address], | | | | | | [place] [address] | | | | + + + + + + | Albumin | 2.8 (L)Comment: Testing | 3.3 - 4.8 g/dL | EXTERNAL | | | | performed at [facility], [address] | | LAB | | | | [address], | | | | | | [place] [address] | | | | + + + + + + | Globulin | 3.5Comment: Testing | 1.3 - 4.9 g/dL | EXTERNAL | | | | performed at [facility], [address] | | LAB | | | | [address], | | | | | | [place] [address] | | | | + + + + + + | A/G Ratio | 0.8 (L)Comment: Testing | 1.0 - 2.4 | EXTERNAL | | | | performed at [facility], [address] | | LAB | | | | [address], | | | | | | [place] [address] | | | | + + + + + + | Bilirubin | 0.5Comment: Testing | 0.1 - 1.5 mg/dL | EXTERNAL | | | Total | performed at [facility], [address] | | LAB | | | | [address], | | | | | | [place] [address] | | | | + + + + + + | ALP, | 102Comment: Testing | 35 - 115 U/L | EXTERNAL | | | External | performed at [facility], [address] | | LAB | | | | [address], | | | | | | [place] [address] | | | | + + + + + + | AST | 53 (H)Comment: Testing | 10 - 45 U/L | EXTERNAL | | | | performed at [facility], [address] | | LAB | | | | [address], | | | | | | [place] [address] | | | | + + + + + + | ALT | 21Comment: Testing | 10 - 65 U/L | EXTERNAL | | | | performed at [facility], [address] | | LAB | | | | [address], | | | | | | [place] [address] | | | | + + + [...] | | | | | [place] [address] | | | | + + + [...] EXTERNAL | | | | performed at [facility];[address] | mmol/L | LAB | | | | [address];[place] | | | | | | [address] | | | | + + + [...] EXTERNAL | | | | performed at [facility];8 | | LAB | | | | [facility];[place], [place] | | | | | | [address] | | | | + + + [...] | | | | | [place] [address] | | | | + + + + + + | Non- | 2.78 (L)Comment: Testing | 3.70 - 5.10 | EXTERNAL | | | Red Blood | performed at [facility], [address] | M/uL | LAB | | | Cells | [address], | | | | | Counted | [place] [address] | | | | + + + + + + | Hemoglobin | 9.7 (L)Comment: Testing | 11.3 - 15.5 | EXTERNAL | | | | performed at [facility], [address] | g/dL | LAB | | | | [address], | | | | | | [place] [address] | | | | + + + + + + | Hematocrit, | 29.6 (L)Comment: Testing | 34.0 - 46.0 % | EXTERNAL | | | POC | performed at [facility], [address] | | LAB | | | | [address], | | | | | | [place] [address] | | | | + + + + + + | MCV | 106.3 (H)Comment: | 80.0 - 100.0 fl | EXTERNAL | | | | Testing performed at | | LAB | | | | [facility], [address] | | | | | | [place] | | | | | | [address] | | | | + + + + + + | MCH | 34.8 (H)Comment: Testing | 27.0 - 34.0 pg | EXTERNAL | | | | performed at [facility], [address] | | LAB | | | | [address], | | | | | | [place] [address] | | | | + + + + + + | MCHC | 32.8Comment: Testing | 32.0 - 35.5 | EXTERNAL | | | | performed at [facility], [address] | g/dL | LAB | | | | [address], | | | | | | [place] [address] | | | | + + + + + + | RDW-CV | 53.8 (H)Comment: Testing | 37 - 53 fl | EXTERNAL | | | | performed at [facility], [address] | | LAB | | | | [address], | | | | | | [place] [address] | | | | + + + + + + | Platelet | 181Comment: Testing | 150 - 400 K/uL | EXTERNAL | | | Count | performed at [facility], [address] | | LAB | | | Plasma | [address], | | | | | | [place] [address] | | | | + + + + + + | MPV | 11.3Comment: Testing | fl | EXTERNAL | | | | performed at [facility], [address] | | LAB | | | | [address], | | | | | | [place] [address] | | | | + + + + + + | Differentia | MANUALComment: Testing | | EXTERNAL | | | l Type | performed at [facility], [address] | | LAB | | | | [address], | | | | | | [place], [place] [address] | | | | + + + + + + | Segmented | 45Comment: Testing | % | EXTERNAL | | | Neutrophils | performed at [facility], [address] | | LAB | | | Manual | [address], | | | | | | [place] [address] | | | | + + + + + + | % Bands | 1Comment: Testing | % | EXTERNAL | | | | performed at [facility], [address] | | LAB | | | | [address], | | | | | | [place] [address] | | | | + + + + + + | Lymphocytes | 35Comment: Testing | % | EXTERNAL | | | Manual | performed at [facility], [address] | | LAB | | | | [address], | | | | | | [place] [address] | | | | + + + + + + | Monocytes | 11Comment: Testing | % | EXTERNAL | | | Manual | performed at [facility], [address] | | LAB | | | | [address], | | | | | | [place] [address] | | | | + + + + + + | Eosinophils | 8Comment: Testing | % | EXTERNAL | | | Manual | performed at [facility], [address] | | LAB | | | | [address], | | | | | | [place] [address] | | | | + + + + + + | Absolute | 3.85Comment: Testing | 1.90 - 7.40 | EXTERNAL | | | Neutrophils | performed at [facility], [address] | K/uL | LAB | | | | [address], | | | | | | [place] [address] | | | | + + + + + + | Bands | 0.09Comment: Testing | 0.00 - 0.20 | EXTERNAL | | | Manual | performed at [facility], [address] | K/uL | LAB | | | | [address], | | | | | | [place] [address] | | | | + + + + + + | Absolute | 3.01Comment: Testing | 1.00 - 3.90 | EXTERNAL | | | Lymphocytes | performed at [facility], [address] | K/uL | LAB | | | | [address], | | | | | | [place] [address] | | | | + + + + + + | Absolute | 0.95 (H)Comment: Testing | 0.00 - 0.80 | EXTERNAL | | | Monocytes | performed at [facility], [address] | K/uL | LAB | | | | [address], | | | | | | [place] [address] | | | | + + + + + + | Absolute | 0.69 (H)Comment: Testing | 0.00 - 0.50 | EXTERNAL | | | Eosinophils | performed at [facility], [address] | K/uL | LAB | | | | [address], | | | | | | [place] [address] | | | | + + + + + + | RBC | 2+Comment: MACRONORMAL | | EXTERNAL | | | Morphology | PLT MORPHTesting | | LAB | | | | performed at [facility], [address] | | | | | | [address], | | | | | | [place] [address] | | | | | | | [...] EXTERNAL | | | | performed at [facility], [address] | | LAB | | | | [address], | | | | | | [place] [address] | | | | + + + [...] | | | | | [place] [address] | | | | + + + [...] | | | | | [place] [address] | | | | + + + + + + | K | 3.2 (L)Comment: Testing | 3.5 - 4.9 | EXTERNAL | | | | performed at [facility], [address] | mmol/L | LAB | | | | [address], | | | | | | [place] [address] | | | | + + + + + + | Cl | 103Comment: Testing | 99 - 109 mmol/L | EXTERNAL | | | | performed at [facility], [address] | | LAB | | | | [address], | | | | | | [place] [address] | | | | + + + + + + | CO2 | 31Comment: Testing | 23 - 32 mmol/L | EXTERNAL | | | | performed at [facility], [address] | | LAB | | | | [address], | | | | | | [place] [address] | | | | + + + + + + | Anion Gap | 7Comment: Testing | 5 - 20 mmol/L | EXTERNAL | | | | performed at [facility], [address] | | LAB | | | | [address], | | | | | | [place] [address] | | | | + + + + + + | Glucose, | 104 (H)Comment: Testing | 65 - 99 mg/dL | EXTERNAL | | | Fasting | performed at [facility], [address] | | LAB | | | | [address], | | | | | | [place] [address] | | | | + + + + + + | BUN | 10Comment: Testing | 8 - 25 mg/dL | EXTERNAL | | | | performed at [facility], [address] | | LAB | | | | [address], | | | | | | [place] [address] | | | | + + + + + + | Creatinine | 0.83Comment: Testing | 0.50 - 1.00 | EXTERNAL | | | | performed at [facility], [address] | mg/dL | LAB | | | | [address], | | | | | | [place] [address] | | | | + + + + + + | BUN/Creatin | 12Comment: Testing | | EXTERNAL | | | ine Ratio | performed at [facility], [address] | | LAB | | | | [address], | | | | | | [place] [address] | | | | + + + + + + | Calcium | 8.2 (L)Comment: Testing | 8.5 - 10.5 | EXTERNAL | | | | performed at [facility], [address] | mg/dL | LAB | | | | [address], | | | | | | [place] [address] | | | | + + + + + + | Protein, | 6.2 (L)Comment: Testing | 6.3 - 8.2 g/dL | EXTERNAL | | | Total | performed at [facility], [address] | | LAB | | | | [address], | | | | | | [place] [address] | | | | + + + + + + | Albumin | 2.7 (L)Comment: Testing | 3.3 - 4.8 g/dL | EXTERNAL | | | | performed at [facility], [address] | | LAB | | | [address], | | | | | | [place] [address] | | | | + + + + + + | Globulin | 3.5Comment: Testing | 1.3 - 4.9 g/dL | EXTERNAL | | | | performed at [facility], [address] | | LAB | | | | [address], | | | | | | [place] [address] | | | | + + + + + + | A/G Ratio | 0.8 (L)Comment: Testing | 1.0 - 2.4 | EXTERNAL | | | | performed at [facility], [address] | | LAB | | | | [address], | | | | | | [place] [address] | | | | + + + + + + | Bilirubin | 0.5Comment: Testing | 0.1 - 1.5 mg/dL | EXTERNAL | | | Total | performed at [facility], [address] | | LAB | | | | [address], | | | | | | [place] [id number] | | | | + + + + + + | ALP, | 98Comment: Testing | 35 - 115 U/L | EXTERNAL | | | External | performed at [facility], [address] | | LAB | | | | [address], | | | | | | [place] [id number] | | | | + + + + + + | AST | 35Comment: Testing | 10 - 45 U/L | EXTERNAL | | | | performed at [facility], [address] | | LAB | | | | [address], | | | | | | [place] [id number] | | | | + + + + + + | ALT | 15Comment: Testing | 10 - 65 U/L | EXTERNAL | | | | performed at [facility], [address] | | LAB | | | | [address], | | | | | | [place] [address] | | | | + + + [...] | | | | | [place] [address] | | | | + + + [...] EXTERNAL | | | | performed at [facility], [address] | | LAB | | | | [address], | | | | | | [place] [address] | | | | + + + [...] | | | B-12 | performed at [facility], [address] | pg/mL | LAB | | | | [address], | | | | | | [place] [address] | | | | + + + [...] EXTERNAL | | | | performed at [facility], [address] | K/uL | LAB | | | | [address], | | | | | | [place] [address] | | | | + + + + + + | Non- | 2.72 (L)Comment: Testing | 3.70 - 5.10 | EXTERNAL | | | Red Blood | performed at [facility], [address] | M/uL | LAB | | | Cells | [address], | | | | | Counted | [place] [address] | | | | + + + + + + | Hemoglobin | 9.4 (L)Comment: Testing | 11.3 - 15.5 | EXTERNAL | | | | performed at [facility], [address] | g/dL | LAB | | | | [address], | | | | | | [place] [address] | | | | + + + + + + | Hematocrit, | 29.1 (L)Comment: Testing | 34.0 - 46.0 % | EXTERNAL | | | POC | performed at [facility], [address] | | LAB | | | | [address], | | | | | | [place] [address] | | | | + + + + + + | MCV | 107.3 (H)Comment: | 80.0 - 100.0 fl | EXTERNAL | | | | Testing performed at | | LAB | | | | [facility], [address] | | | | | | [place] | | | | | | [address] | | | | + + + + + + | MCH | 34.6 (H)Comment: Testing | 27.0 - 34.0 pg | EXTERNAL | | | | performed at [facility], [address] | | LAB | | | | [address], | | | | | | [place] [address] | | | | + + + + + + | MCHC | 32.2Comment: Testing | 32.0 - 35.5 | EXTERNAL | | | | performed at [facility], [address] | g/dL | LAB | | | | [address], | | | | | | [place] [address] | | | | + + + + + + | RDW-CV | 57.3 (H)Comment: Testing | 37 - 53 fl | EXTERNAL | | | | performed at [facility], [address] | | LAB | | | | [address], | | | | | | [place] [address] | | | | + + + + + + | Platelet | 174Comment: Testing | 150 - 400 K/uL | EXTERNAL | | | Count | performed at [facility], [address] | | LAB | | | Plasma | [address], | | | | | | [place] [address] | | | | + + + + + + | MPV | 10.9Comment: Testing | fl | EXTERNAL | | | | performed at [facility], [address] | | LAB | | | | [address], | | | | | | [place] [address] | | | | + + + + + + | Differentia | MANUALComment: Testing | | EXTERNAL | | | l Type | performed at [facility], [address] | | LAB | | | | [address], | | | | | | [place] [address] | | | | + + + + + + | Segmented | 45Comment: Testing | % | EXTERNAL | | | Neutrophils | performed at [facility], [address] | | LAB | | | Manual | [address], | | | | | | [place] [address] | | | | + + + + + + | % Bands | 1Comment: Testing | % | EXTERNAL | | | | performed at [facility], [address] | | LAB | | | | [address], | | | | | | [place] [address] | | | | + + + + + + | Lymphocytes | 34Comment: Testing | % | EXTERNAL | | | Manual | performed at [facility], [address] | | LAB | | | | [address], | | | | | | [place] [address] | | | | + + + + + + | Monocytes | 11Comment: Testing | % | EXTERNAL | | | Manual | performed at [facility], [address] | | LAB | | | | [address], | | | | | | [place] [address] | | | | + + + + + + | Eosinophils | 9Comment: Testing | % | EXTERNAL | | | Manual | performed at [facility], [address] | | LAB | | | | [address], | | | | | | [place] [address] | | | | + + + + + + | Absolute | 3.77Comment: Testing | 1.90 - 7.40 | EXTERNAL | | | Neutrophils | performed at [facility], [address] | K/uL | LAB | | | | [address], | | | | | | [place] [address] | | | | + + + + + + | Bands | 0.08Comment: Testing | 0.00 - 0.20 | EXTERNAL | | | Manual | performed at [facility], [address] | K/uL | LAB | | | | [address], | | | | | | [place] [address] | | | | + + + + + + | Absolute | 2.84Comment: Testing | 1.00 - 3.90 | EXTERNAL | | | Lymphocytes | performed at [facility], [address] | K/uL | LAB | | | | [address], | | | | | | [place] [address] | | | | + + + + + + | Absolute | 0.92 (H)Comment: Testing | 0.00 - 0.80 | EXTERNAL | | | Monocytes | performed at [facility], [address] | K/uL | LAB | | | | [address], | | | | | | [place] [address] | | | | + + + + + + | Absolute | 0.75 (H)Comment: Testing | 0.00 - 0.50 | EXTERNAL | | | Eosinophils | performed at [facility], [address] | K/uL | LAB | | | | [address], | | | | | | [place] [address] | | | | + + + + + + | RBC | NORMAL PLT MORPHComment: | | EXTERNAL | | | Morphology | NORMAL RBC MORPHTesting | | LAB | | | | performed at [facility], [address] | | | | | [address], | | | | | | [place] [address] | | | | + + + [...] EXTERNAL | | | | performed at [facility], [address] | | LAB | | | | [address], | | | | | | [place] [address] | | | | + + + [...] | | | | | [place] [address] | | | | + + + [...] | | | | | [place] [address] | | | | + + + + + + | K | 3.8Comment: Testing | 3.5 - 4.9 | EXTERNAL | | | | performed at [facility], [address] | mmol/L | LAB | | | | [address], | | | | | | [place] [address] | | | | + + + + + + | Cl | 111 (H)Comment: Testing | 99 - 109 mmol/L | EXTERNAL | | | | performed at [facility], [address] | | LAB | | | | [address], | | | | | | [place] [address] | | | | + + + + + + | CO2 | 25Comment: Testing | 23 - 32 mmol/L | EXTERNAL | | | | performed at [facility], [address] | | LAB | | | | [address], | | | | | | [place] [address] | | | | + + + + + + | Anion Gap | 5Comment: Testing | 5 - 20 mmol/L | EXTERNAL | | | | performed at [facility], [address] | | LAB | | | | [address], | | | | | | [place] [address] | | | | + + + + + + | Glucose, | 112 (H)Comment: Testing | 65 - 99 mg/dL | EXTERNAL | | | Fasting | performed at [facility], [address] | | LAB | | | | [address], | | | | | | [place] [address] | | | | + + + + + + | BUN | 13Comment: Testing | 8 - 25 mg/dL | EXTERNAL | | | | performed at [facility], [address] | | LAB | | | | [address], | | | | | | [place] [address] | | | | + + + + + + | Creatinine | 0.74Comment: Testing | 0.50 - 1.00 | EXTERNAL | | | | performed at [facility], [address] | mg/dL | LAB | | | | [address], | | | | | | [place] [address] | | | | + + + + + + | BUN/Creatin | 18Comment: Testing | | EXTERNAL | | | ine Ratio | performed at [facility], [address] | | LAB | | | | [address], | | | | | | [place] [address] | | | | + + + + + + | Calcium | 8.0 (L)Comment: Testing | 8.5 - 10.5 | EXTERNAL | | | | performed at [facility], [address] | mg/dL | LAB | | | | [address], | | | | | | [place] [address] | | | | + + + + + + | Protein, | 5.9 (L)Comment: Testing | 6.3 - 8.2 g/dL | EXTERNAL | | | Total | performed at [facility], [address] | | LAB | | | | [address], | | | | | | [place] [address] | | | | + + + + + + | Albumin | 2.6 (L)Comment: Testing | 3.3 - 4.8 g/dL | EXTERNAL | | | | performed at [facility], [address] | | LAB | | | | [address], | | | | | | [place] [address] | | | | + + + + + + | Globulin | 3.3Comment: Testing | 1.3 - 4.9 g/dL | EXTERNAL | | | | performed at [facility], [address] | | LAB | | | | [address], | | | | | | [place] [address] | | | | + + + + + + | A/G Ratio | 0.8 (L)Comment: Testing | 1.0 - 2.4 | EXTERNAL | | | | performed at [facility], [address] | | LAB | | | | [address], | | | | | | [place] [address] | | | | + + + + + + | Bilirubin | 0.4Comment: Testing | 0.1 - 1.5 mg/dL | EXTERNAL | | | Total | performed at [facility], [address] | | LAB | | | | [address], | | | | | | [place] [address] | | | | + + + + + + | ALP, | 93Comment: Testing | 35 - 115 U/L | EXTERNAL | | | External | performed at [facility], [address] | | LAB | | | | [address], | | | | | | [place] [address] | | | | + + + + + + | AST | 23Comment: Testing | 10 - 45 U/L | EXTERNAL | | | | performed at [facility], [address] | | LAB | | | | [address], | | | | | | [place] [address] | | | | + + + + + + | ALT | 14Comment: Testing | 10 - 65 U/L | EXTERNAL | | | | performed at [facility], [address] | | LAB | | | | [facility], | | | | | | [place] [address] | | | | + + + [...] | | | | | | at [facility], [address] | | | | | | [facility], | | | | | | [place] [address] | | | | + + + [...] EXTERNAL | | | | performed at [facility], [address] | K/uL | LAB | | | | [address], | | | | | | [place] [address] | | | | + + + + + + | Non- | 2.78 (L)Comment: Testing | 3.70 - 5.10 | EXTERNAL | | | Red Blood | performed at [facility], [address] | M/uL | LAB | | | Cells | [address], | | | | | Counted | [place] [address] | | | | + + + + + + | Hemoglobin | 9.7 (L)Comment: Testing | 11.3 - 15.5 | EXTERNAL | | | | performed at [facility], [address] | g/dL | LAB | | | | [address], | | | | | | [place] [address] | | | | + + + + + + | Hematocrit, | 29.9 (L)Comment: Testing | 34.0 - 46.0 % | EXTERNAL | | | POC | performed at [facility], [address] | | LAB | | | | [address], | | | | | | [place] [address] | | | | + + + + + + | MCV | 107.5 (H)Comment: | 80.0 - 100.0 fl | EXTERNAL | | | | Testing performed at | | LAB | | | | [facility], [address] [facility] | | | | | | [place] | | | | | | [address] | | | | + + + + + + | MCH | 34.9 (H)Comment: Testing | 27.0 - 34.0 pg | EXTERNAL | | | | performed at [facility], [address] | | LAB | | | | [address], | | | | | | [place] [address] | | | | + + + + + + | MCHC | 32.5Comment: Testing | 32.0 - 35.5 | EXTERNAL | | | | performed at [facility], [address] | g/dL | LAB | | | | [address], | | | | | | [place] [address] | | | | + + + + + + | RDW-CV | 57.3 (H)Comment: Testing | 37 - 53 fl | EXTERNAL | | | | performed at [facility], [address] | | LAB | | | | [address], | | | | | | [place] [address] | | | | + + + + + + | Platelet | 162Comment: Testing | 150 - 400 K/uL | EXTERNAL | | | Count | performed at [facility], [address] | | LAB | | | Plasma | [address], | | | | | | [place] [address] | | | | + + + + + + | MPV | 11.6Comment: Testing | fl | EXTERNAL | | | | performed at [facility], [address] | | LAB | | | | [address], | | | | | | [place] [address] | | | | + + + + + + | Differentia | MANUALComment: Testing | | EXTERNAL | | | l Type | performed at [facility], [address] | | LAB | | | | [address], | | | | | | [place] [address] | | | | + + + + + + | Segmented | 31Comment: Testing | % | EXTERNAL | | | Neutrophils | performed at [facility], [address] | | LAB | | | Manual | [address], | | | | | | [place] [address] | | | | + + + [...] | | | | | [place] [address] | | | | + + + + + + | Eosinophils | 6Comment: Testing | % | EXTERNAL | | | Manual | performed at [facility], [address] | | LAB | | | | [address], | | | | | | [place] [address] | | | | + + + + + + | Absolute | 3.19Comment: Testing | 1.90 - 7.40 | EXTERNAL | | | Neutrophils | performed at [facility], [address] | K/uL | LAB | | | | [address], | | | | | | [place] [address] | | | | + + + + + + | Absolute | 5.36 (H)Comment: Testing | 1.00 - 3.90 | EXTERNAL | | | Lymphocytes | performed at [facility], [address] | K/uL | LAB | | | | [address], | | | | | | [place] [address] | | | | + + + + + + | Absolute | 1.13 (H)Comment: Testing | 0.00 - 0.80 | EXTERNAL | | | Monocytes | performed at [facility], [address] | K/uL | LAB | | | | [address], | | | | | | [place] [address] | | | | + + + + + + | Absolute | 0.62 (H)Comment: Testing | 0.00 - 0.50 | EXTERNAL | | | Eosinophils | performed at [facility], [address] | K/uL | LAB | | | | [address], | | | | | | [place] [address] | | | | + + + + + + | RBC | 2+Comment: MACRONORMAL | | EXTERNAL | | | Morphology | PLT MORPHTesting | | LAB | | | | performed at [facility], [address] | | | | | [address], | | | | | | [place] [address] | | | | | | | [...] EXTERNAL | | | | performed at [facility], [address] | | LAB | | | | [address], | | | | | | [place] [address] | | | | + + + [...] EXTERNAL | | | | performed at [facility], [address] | | LAB | | | | [facility], | | | | | | [place] [address] | | | | + + + [...] EXTERNAL | | | | performed at [facility], [address] | mmol/L | LAB | | | | [address], | | | | | | [place] [address] | | | | + + + + + + | K | 4.2Comment: Testing | 3.5 - 4.9 | EXTERNAL | | | | performed at [facility], [address] | mmol/L | LAB | | | | [address], | | | | | | [place] [address] | | | | + + + + + + | Cl | 112 (H)Comment: Testing | 99 - 109 mmol/L | EXTERNAL | | | | performed at [facility], [address] | | LAB | | | | [address], | | | | | | [place] [address] | | | | + + + + + + | CO2 | 27Comment: Testing | 23 - 32 mmol/L | EXTERNAL | | | | performed at [facility], [address] | | LAB | | | | [address], | | | | | | [place] [address] | | | | + + + + + + | Anion Gap | 4 (L)Comment: Testing | 5 - 20 mmol/L | EXTERNAL | | | | performed at [facility], [address] | | LAB | | | | [address], | | | | | | [place] [address] | | | | + + + + + + | Glucose, | 94Comment: Testing | 65 - 99 mg/dL | EXTERNAL | | | Fasting | performed at [facility], [address] | | LAB | | | | [address], | | | | | | [place] [address] | | | | + + + + + + | BUN | 19Comment: Testing | 8 - 25 mg/dL | EXTERNAL | | | | performed at [facility], [address] | | LAB | | | | [address], | | | | | | [place] [address] | | | | + + + + + + | Creatinine | 1.01 (H)Comment: Testing | 0.50 - 1.00 | EXTERNAL | | | | performed at [facility], [address] | mg/dL | LAB | | | | [address], | | | | | | [place] [address] | | | | + + + + + + | BUN/Creatin | 19Comment: Testing | | EXTERNAL | | | ine Ratio | performed at [facility], [address] | | LAB | | | | [address], | | | | | | [place] [address] | | | | + + + + + + | Calcium | 8.1 (L)Comment: Testing | 8.5 - 10.5 | EXTERNAL | | | | performed at [facility], [address] | mg/dL | LAB | | | | [address], | | | | | | [place] [address] | | | | + + + + + + | Protein, | 5.9 (L)Comment: Testing | 6.3 - 8.2 g/dL | EXTERNAL | | | Total | performed at [facility], [address] | | LAB | | | | [address], | | | | | | [place] [address] | | | | + + + + + + | Albumin | 2.5 (L)Comment: Testing | 3.3 - 4.8 g/dL | EXTERNAL | | | | performed at [facility], [address] | | LAB | | | | [address], | | | | | | [place] [address] | | | | + + + + + + | Globulin | 3.4Comment: Testing | 1.3 - 4.9 g/dL | EXTERNAL | | | | performed at [facility], [address] | | LAB | | | | [address], | | | | | | [place] [address] | | | | + + + + + + | A/G Ratio | 0.7 (L)Comment: Testing | 1.0 - 2.4 | EXTERNAL | | | | performed at [facility], [address] | | LAB | | | | [address], | | | | | | [place] [address] | | | | + + + + + + | Bilirubin | 0.3Comment: Testing | 0.1 - 1.5 mg/dL | EXTERNAL | | | Total | performed at [facility], [address] | | LAB | | | | [address], | | | | | | [place] [address] | | | | + + + + + + | ALP, | 98Comment: Testing | 35 - 115 U/L | EXTERNAL | | | External | performed at [facility], [address] | | LAB | | | | [address], | | | | | | [place] [address] | | | | + + + + + + | AST | 24Comment: Testing | 10 - 45 U/L | EXTERNAL | | | | performed at [facility], [address] | | LAB | | | | [address], | | | | | | [place] [address] | | | | + + + + + + | ALT | 14Comment: Testing | 10 - 65 U/L | EXTERNAL | | | | performed at [facility], [address] | | LAB | | | | [address], | | | | | | [place] [address] | | | | + + + [...] | | | | | | at [facility], [address] | | | | | | [address], | | | | | | [place] [address] | | | | + + + [...] Blake Conversion - 01/05/2019 4:32 AM PDT HISTORY:Sepsis. [...] | | + + External Lab: CBC (01/30/2015 5:42 AM PDT) + + +---- [...] [place] | | | | | | [address] | | | | + + +---- + + + | Non- | 2.93 (L)Comment: Testing | 3.7 0 - 5.10 | EXTERNAL | | | Red Blood | performed at [facility], [address] | M/u L | LAB | | | Cells | [address], | | | | | Counted | [place] [address] | | | | + + +---- + + + | Hemoglobin | 10.2 (L)Comment: Testing | 11. 3 - 15.5 | EXTERNAL | | | | performed at [facility], [address] | g/d L | LAB | | | | [address], | | | | | | [place] [address] | | | | + + +---- + + + | Hematocrit, | 31.6 (L)Comment: Testing | 34. 0 - 46.0 % | EXTERNAL | | | POC | performed at [facility], [address] | | LAB | | | | [address], | | | | | | [place] [address] | | | | + + +---- + + + | MCV | 107.8 (H)Comment: | 80. 0 - 100.0 fl | EXTERNAL | | | | Testing performed at | | LAB | | | | [facility], [address] | | | | | | [place] | | | | | | [address] | | | | + + +---- + + + | MCH | 34.8 (H)Comment: Testing | 27. 0 - 34.0 pg | EXTERNAL | | | | performed at [facility], [address] | | LAB | | | | [address], | | | | | | [place] [address] | | | | + + +---- + + + | MCHC | 32.3Comment: Testing | 32. 0 - 35.5 | EXTERNAL | | | | performed at [facility], [address] | g/d L | LAB | | | | [address], | | | | | | [place] [address] | | | | + + +---- + + + | RDW-CV | 57.3 (H)Comment: Testing | 37 - 53 fl | EXTERNAL | | | | performed at [facility], [address] | | LAB | | | | [address], | | | | | | [place] [address] | | | | + + +---- + + + | Platelet | 146 (L)Comment: Testing | 150 - 400 K/uL | EXTERNAL | | | Count | performed at [facility], [address] | | LAB | | | Plasma | [address], | | | | | | [place] [address] | | | | + + +---- + + + | MPV | 11.2Comment: Testing | fl | EXTERNAL | | | | performed at [facility], [address] | | LAB | | | | [address], | | | | | | [place] [address] | | | | + + +---- + + + | Differentia | MANUALComment: Testing | | EXTERNAL | | | l Type | performed at [facility], [address] | | LAB | | | | [address], | | | | | | [place] [address] | | | | + + +---- + + + | Segmented | 58Comment: Testing | % | EXTERNAL | | | Neutrophils | performed at [facility], [address] | | LAB | | | Manual | [address], | | | | | | [place] [address] | | | | + + +---- + + + | % Bands | 20Comment: Testing | % | EXTERNAL | | | | performed at [facility], [address] | | LAB | | | | [address], | | | | | | [place] [address] | | | | + + +---- + + + | Lymphocytes | 13Comment: Testing | % | EXTERNAL | | | Manual | performed at [facility], [address] | | LAB | | | | [address], | | | | | | [place] [address] | | | | + + +---- + + + | Monocytes | 7Comment: Testing | % | EXTERNAL | | | Manual | performed at [facility], [address] | | LAB | | | | [address], | | | | | | [place] [address] | | | | + + +---- + + + | Eosinophils | 2Comment: Testing | % | EXTERNAL | | | Manual | performed at [facility], [address] | | LAB | | | | [address], | | | | | | [place] [address] | | | | + + +---- + + + | Absolute | 9.23 (H)Comment: Testing | 1.9 0 - 7.40 | EXTERNAL | | | Neutrophils | performed at [facility], [address] | K/u L | LAB | | | | [address], | | | | | | [place] [address] | | | | + + +---- + + + | Bands | 3.18 (H)Comment: Testing | 0.0 0 - 0.20 | EXTERNAL | | | Manual | performed at [facility], [facility] | K/u L | LAB | | | | [address], | | | | | | [place] [address] | | | | + + +---- + + + | Absolute | 2.07Comment: Testing | 1.0 0 - 3.90 | EXTERNAL | | | Lymphocytes | performed at [facility], [address] | K/u L | LAB | | | | [address], | | | | | | [place] [address] | | | | + + +---- + + + | Absolute | 1.11 (H)Comment: Testing | 0.0 0 - 0.80 | EXTERNAL | | | Monocytes | performed at [facility], [address] | K/u L | LAB | | | | [address], | | | | | | [place] [address] | | | | + + +---- + + + | Absolute | 0.32Comment: Testing | 0.0 0 - 0.50 | EXTERNAL | | | Eosinophils | performed at [facility], [address] | K/u L | LAB | | | | [address], | | | | | | [place] [address] | | | | + + +---- + + + | RBC | 2+Comment: | | EXTERNAL | | | Morphology | MACRO1+ANISONORMAL PLT | | LAB | | | | MORPHTesting performed | | | | | | at [facility], [address] | | | | | | [facility], | | | | | | [place] [address] | | | | | |Testing performed at [facility], [address] [facility], [place] [address] | | | | | | | [...] EXTERNAL | | | | performed at [facility], [address] | | LAB | | | | [address], | | | | | | [place] [address] | | | | + + + [...] | | | | | [place] [address] | | | | + + + [...] | | | | | [place] [address] | | | | + + + + + + | K | 3.9Comment: Testing | 3.5 - 4.9 | EXTERNAL | | | | performed at [facility], [address] | mmol/L | LAB | | | | [address], | | | | | | [place] [address] | | | | + + + + + + | Cl | 109Comment: Testing | 99 - 109 mmol/L | EXTERNAL | | | | performed at [facility], [address] | | LAB | | | | [address], | | | | | | [place] [address] | | | | + + + + + + | CO2 | 24Comment: Testing | 23 - 32 mmol/L | EXTERNAL | | | | performed at [facility], [address] | | LAB | | | | [address], | | | | | | [place] [address] | | | | + + + + + + | Anion Gap | 8Comment: Testing | 5 - 20 mmol/L | EXTERNAL | | | | performed at [facility], [address] | | LAB | | | | [address], | | | | | | [place] [address] | | | | + + + + + + | Glucose, | 98Comment: Testing | 65 - 99 mg/dL | EXTERNAL | | | Fasting | performed at [facility], [address] | | LAB | | | | [address], | | | | | | [place] [address] | | | | + + + + + + | BUN | 25Comment: Testing | 8 - 25 mg/dL | EXTERNAL | | | | performed at [facility], [address] | | LAB | | | | [address], | | | | | | [place] [id number] | | | | + + + + + + | Creatinine | 1.39 (H)Comment: Testing | 0.50 - 1.00 | EXTERNAL | | | | performed at [facility], [address] | mg/dL | LAB | | | | [address], | | | | | | [place] [id number] | | | | + + + + + + | BUN/Creatin | 18Comment: Testing | | EXTERNAL | | | ine Ratio | performed at [facility], [address] | | LAB | | | | [address], | | | | | | [place] [address] | | | | + + + + + + | Calcium | 8.2 (L)Comment: Testing | 8.5 - 10.5 | EXTERNAL | | | | performed at [facility], [address] | mg/dL | LAB | | | | [address], | | | | | | [place] [address] | | | | + + + + + + | Protein, | 6.1 (L)Comment: Testing | 6.3 - 8.2 g/dL | EXTERNAL | | | Total | performed at [facility], [address] | | LAB | | | | [address], | | | | | | [place] [address] | | | | + + + + + + | Albumin | 2.4 (L)Comment: Testing | 3.3 - 4.8 g/dL | EXTERNAL | | | | performed at [facility], [address] | | LAB | | | | [address], | | | | | | [place] [address] | | | | + + + + + + | Globulin | 3.7Comment: Testing | 1.3 - 4.9 g/dL | EXTERNAL | | | | performed at [facility], [address] | | LAB | | | | [address], | | | | | | [place] [address] | | | | + + + + + + | A/G Ratio | 0.6 (L)Comment: Testing | 1.0 - 2.4 | EXTERNAL | | | | performed at [facility], [address] | | LAB | | | | [address], | | | | | | [place] [address] | | | | + + + + + + | Bilirubin | 0.4Comment: Testing | 0.1 - 1.5 mg/dL | EXTERNAL | | | Total | performed at [facility], [address] | | LAB | | | | [address], | | | | | | [place] [address] | | | | + + + + + + | ALP, | 111Comment: Testing | 35 - 115 U/L | EXTERNAL | | | External | performed at [facility], [address] | | LAB | | | | [address], | | | | | | [place] [address] | | | | + + + + + + | AST | 29Comment: Testing | 10 - 45 U/L | EXTERNAL | | | | performed at [facility], [address] | | LAB | | | | [address], | | | | | | [place] [address] | | | | + + + + + + | ALT | 14Comment: Testing | 10 - 65 U/L | EXTERNAL | | | | performed at [facility], [address] | | LAB | | | | [address], | | | | | | [place] [address] | | | | + + + [...] | | | | | | at [facility], [address] | | | | | | [address], | | | | | | [place] [address] | | | | + + + [...] | | | | [facility], [address] [facility] | | | | | | [place] | | | | | | [id number] | | | | + + + + + + | Non- | 3.12 (L)Comment: Testing | 3.70 - 5.10 | EXTERNAL | | | Red Blood | performed at [facility], [address] | M/uL | LAB | | | Cells | [address], | | | | | Counted | [place] [address] | | | | + + + + + + | Hemoglobin | 10.8 (L)Comment: Testing | 11.3 - 15.5 | EXTERNAL | | | | performed at [facility], [address] | g/dL | LAB | | | | [address], | | | | | | [place] [address] | | | | + + + + + + | Hematocrit, | 33.7 (L)Comment: Testing | 34.0 - 46.0 % | EXTERNAL | | | POC | performed at [facility], [address] | | LAB | | | | [address], | | | | | | [place] [address] | | | | + + + + + + | MCV | 108.0 (H)Comment: | 80.0 - 100.0 fl | EXTERNAL | | | | Testing performed at | | LAB | | | | [facility], [address] | | | | | | [place] | | | | | | [address] | | | | + + + + + + | MCH | 34.7 (H)Comment: Testing | 27.0 - 34.0 pg | EXTERNAL | | | | performed at [facility], [address] | | LAB | | | | [address], | | | | | | [place] [address] | | | | + + + + + + | MCHC | 32.1Comment: Testing | 32.0 - 35.5 | EXTERNAL | | | | performed at [facility], [address] | g/dL | LAB | | | | [address], | | | | | | [place], [place] [address] | | | | + + + + + + | RDW-CV | 55.6 (H)Comment: Testing | 37 - 53 fl | EXTERNAL | | | | performed at [facility], [address] | | LAB | | | | [address], | | | | | | [place] [address] | | | | + + + + + + | Platelet | 153Comment: Testing | 150 - 400 K/uL | EXTERNAL | | | Count | performed at [facility], [address] | | LAB | | | Plasma | [address], | | | | | | [place] [address] | | | | + + + + + + | MPV | 11.2Comment: Testing | fl | EXTERNAL | | | | performed at [facility], [address] | | LAB | | | | [address], | | | | | | [place] [address] | | | | + + + + + + | Differentia | MANUALComment: Testing | | EXTERNAL | | | l Type | performed at [facility], [address] | | LAB | | | | [address], | | | | | | [place] [address] | | | | + + + + + + | Segmented | 64Comment: Testing | % | EXTERNAL | | | Neutrophils | performed at [facility], [address] | | LAB | | | Manual | [address], | | | | | | [place] [address] | | | | + + + + + + | % Bands | 15Comment: Testing | % | EXTERNAL | | | | performed at [facility], [address] | | LAB | | | | [address], | | | | | | [place] [address] | | | | + + + + + + | % | 2Comment: Testing | % | EXTERNAL | | | Metamyelocy | performed at [facility], [address] | | LAB | | | [address]ma | [address], | | | | | | [place] [address] | | | | + + + + + + | Lymphocytes | 12Comment: Testing | % | EXTERNAL | | | Manual | performed at [facility], [address] | | LAB | | | | [address], | | | | | | [place] [address] | | | | + + + + + + | Monocytes | 6Comment: Testing | % | EXTERNAL | | | Manual | performed at [facility], [address] | | LAB | | | | [address], | | | | | | [place] [address] | | | | + + + + + + | Eosinophils | 1Comment: Testing | % | EXTERNAL | | | Manual | performed at [facility], [address] | | LAB | | | | [address], | | | | | | [place] [address] | | | | + + + + + + | Absolute | 11.48 (H)Comment: | 1.90 - 7.40 | EXTERNAL | | | Neutrophils | Testing performed at | K/uL | LAB | | | | [facility], [address] [facility] | | | | | | [place] | | | | | | [address] | | | | + + + + + + | Bands | 2.69 (H)Comment: Testing | 0.00 - 0.20 | EXTERNAL | | | Manual | performed at [facility], [address] | K/uL | LAB | | | | [address], | | | | | | [place] [address] | | | | + + + + + + | Absolute | 0.36 (H)Comment: Testing | K/uL | EXTERNAL | | | Metamyelocy | performed at [facility], [address] | | LAB | | | [place] | [address], | | | | | | [place] [address] | | | | + + + + + + | Absolute | 2.15Comment: Testing | 1.00 - 3.90 | EXTERNAL | | | Lymphocytes | performed at [facility], [address] | K/uL | LAB | | | | [address], | | | | | | [place] [address] | | | | + + + + + + | Absolute | 1.08 (H)Comment: Testing | 0.00 - 0.80 | EXTERNAL | | | Monocytes | performed at [facility], [address] | K/uL | LAB | | | | [address], | | | | | | [place] [address] | | | | + + + + + + | Absolute | 0.18Comment: Testing | 0.00 - 0.50 | EXTERNAL | | | Eosinophils | performed at [facility], [address] | K/uL | LAB | | | | [address], | | | | | | [place] [address] | | | | + + + + + + | RBC | 2+Comment: MACRONORMAL | | EXTERNAL | | | Morphology | PLT MORPHTesting | | LAB | | | | performed at [facility], [address] | | | | | | [address], | | | | | | [place] [address] | | | | | | | [...] EXTERNAL | | | | performed at [facility];[address] | mmol/L | LAB | | | | [address];[place] | | | | | | [address] | | | | + + + + + + | K | 3.8Comment: Testing | 3.5 - 4.9 | EXTERNAL | | | | performed at [facility];888 | mmol/L | LAB | | | | [address];[place] | | | | | | [address] | | | | + + + + + + | Cl | 107Comment: Testing | 99 - 109 mmol/L | EXTERNAL | | | | performed at [facility];[address] | | LAB | | | | [address];[place] | | | | | | [address] | | | | + + + + + + | CO2 | 26Comment: Testing | 23 - 32 mmol/L | EXTERNAL | | | | performed at [facility];[address] | | LAB | | | | [address];[place] | | | | | | [address] | | | | + + + + + + | Anion Gap | 12Comment: Testing | 5 - 20 mmol/L | EXTERNAL | | | | performed at [facility];[address] | | LAB | | | | [address];[place] | | | | | | [address] | | | | + + + + + + | Glucose, | 127 (H)Comment: Testing | 65 - 99 mg/dL | EXTERNAL | | | Fasting | performed at [facility];[address] | | LAB | | | | [address];[place] | | | | | | [address] | | | | + + + + + + | BUN | 28 (H)Comment: Testing | 8 - 25 mg/dL | EXTERNAL | | | | performed at [facility];[address] | | LAB | | | | [address];[place] | | | | | | [address] | | | | + + + + + + | Creatinine | 1.8 (H)Comment: Testing | 0.50 - 1.00 | EXTERNAL | | | | performed at [facility];888 | mg/dL | LAB | | | | [address];[place] | | | | | | [address] | | | | + + + + + + | BUN/Creatin | 16Comment: Testing | | EXTERNAL | | | ine Ratio | performed at [facility];[address] | | LAB | | | | [address];[place] | | | | | | [address] | | | | + + + + + + | Calcium | 7.6 (L)Comment: Testing | 8.5 - 10.5 | EXTERNAL | | | | performed at [facility];888 | mg/dL | LAB | | | | [address];[place], [place] | | | | | | [address] | | | | + + + [...] | | | | | | at [facility];[address];[place] [address] | | | | + + + [...] Conversion - 01/05/2019 4:32 AM PDT COLE PARRY [...] | | | | | | at [facility];[address] | | | | | [address];[place] [address] | | | | + + + [...] L | LAB | | | | [facility], [address] [facility] | | | | | | [place] | | | | | | [address] | | | | + + +---- + + + | Non- | 3.07 (L)Comment: Testing | 3.7 0 - 5.10 | EXTERNAL | | | Red Blood | performed at [facility], [address] | M/u L | LAB | | | Cells | [address], | | | | | Counted | [place] [address] | | | | + + +---- + + + | Hemoglobin | 10.8 (L)Comment: Testing | 11. 3 - 15.5 | EXTERNAL | | | | performed at [facility], [address] | g/d L | LAB | | | | [address], | | | | | | [place] [address] | | | | + + +---- + + + | Hematocrit, | 32.7 (L)Comment: Testing | 34. 0 - 46.0 % | EXTERNAL | | | POC | performed at [facility], [address] | | [address] | | | | [address], | | | | | | [place] [address] | | | | + + +---- + + + | MCV | 106.4 (H)Comment: | 80. 0 - 100.0 fl | EXTERNAL | | | | Testing performed at | | LAB | | | | [facility], [address] [facility] | | | | | | [place] | | | | | | [address] | | | | + + +---- + + + | MCH | 35.1 (H)Comment: Testing | 27. 0 - 34.0 pg | EXTERNAL | | | | performed at [facility], [address] | | LAB | | | | [address], | | | | | | [place] [address] | | | | + + +---- + + + | MCHC | 33.0Comment: Testing | 32. 0 - 35.5 | EXTERNAL | | | | performed at [facility], [address] | g/d L | LAB | | | | [address], | | | | | | [place] [address] | | | | + + +---- + + + | RDW-CV | 56.0 (H)Comment: Testing | 37 - 53 fl | EXTERNAL | | | | performed at [facility], [address] | | LAB | | | | [address], | | | | | | [place] [address] | | | | + + +---- + + + | Platelet | 151Comment: Testing | 150 - 400 K/uL | EXTERNAL | | | Count | performed at [facility], [address] | | LAB | | | Plasma | [address], | | | | | | [place] [address] | | | | + + +---- + + + | MPV | 11.7Comment: Testing | fl | EXTERNAL | | | | performed at [facility], [address] | | LAB | | | | [address], | | | | | | [place] [address] | | | | + + +---- + + + | Differentia | MANUALComment: Testing | | EXTERNAL | | | l Type | performed at [facility], [address] | | LAB | | | | [address], | | | | | | [place] [address] | | | | + + +---- + + + | Segmented | 57Comment: Testing | % | EXTERNAL | | | Neutrophils | performed at [facility], [address] | | LAB | | | Manual | [address], | | | | | | [place] [address] | | | | + + +---- + + + | % Bands | 26Comment: Testing | % | EXTERNAL | | | | performed at [facility], [address] | | LAB | | | | [address], | | | | | | [place] [address] | | | | + + +---- + + + | % | 4Comment: Testing | % | EXTERNAL | | | Metamyelocy | performed at [facility], [address] | | LAB | | | irma | [address], | | | | | | [place] [address] | | | | + + +---- + + + | Lymphocytes | 9Comment: Testing | % | EXTERNAL | | | Manual | performed at [facility], [address] | | LAB | | | | [address], | | | | | | [place] [address] | | | | + + +---- + + + | Monocytes | 4Comment: Testing | % | EXTERNAL | | | Manual | performed at [facility], [address] | | LAB | | | | [address], | | | | | | [place] [address] | | | | + + +---- + + + | Absolute | 10.53 (H)Comment: | 1.9 0 - 7.40 | EXTERNAL | | | Neutrophils | Testing performed at | K/u L | LAB | | | | [facility], [address] | | | | | | [place] | | | | | | [address] | | | | + + +---- + + + | Bands | 4.80 (H)Comment: Testing | 0.0 0 - 0.20 | EXTERNAL | | | Manual | performed at [facility], [address] | K/u L | LAB | | | | [address], | | | | | | [place] [address] | | | | + + +---- + + + | Absolute | 0.74 (H)Comment: Testing | K/u L | EXTERNAL | | | Metamyelocy | performed at [facility], [address] | | LAB | | | irma | [address], | | | | | | [place] [address] | | | | + + +---- + + + | Absolute | 1.66Comment: Testing | 1.0 0 - 3.90 | EXTERNAL | | | Lymphocytes | performed at [facility], [address] | K/u L | LAB | | | | [address], | | | | | | [place] [address] | | | | + + +---- + + + | Absolute | 0.74Comment: Testing | 0.0 0 - 0.80 | EXTERNAL | | | Monocytes | performed at [facility], [address] | K/u L | LAB | | | | [address], | | | | | | [place] [address] | | | | + + +---- + + + | RBC | 2+Comment: | | EXTERNAL | | | Morphology | MACRO1+ANISONORMAL PLT | | LAB | | | | MORPHTesting performed | | | | | | at [facility], [address] | | | | | | [address], | | | | | | [place] [address] | | | | | |Testing performed at [facility], [address] [place] [address] | | | | | | | [...] EXTERNAL | | | | performed at [facility] | | LAB | | | | [address] [facility];[place], [place] | | | | | | [address] | | | | + + + [...] | | | | | performed at [facility] | | | | | | [address] [facility];[place], [place] | | | | | | [address] | | | | + + + [...] EXTERNAL | | | | performed at [facility];[address] | mmol/L | LAB | | | | [address];[place], [place] | | | | | | [address] | | | | + + + [...] EXTERNAL | | | | performed at [facility];[address] | mmol/L | LAB | | | | [address];[place] | | | | | | [address] | | | | + + + + + + | K | 4.4Comment: SPECIMEN | 3.5 - 4.9 | EXTERNAL | | | | SLIGHTLY | mmol/L | LAB | | | | HEMOLYZEDTesting | | | | | | performed at [facility];[address] | | | | | | [address];[place] | | | | | | [address] | | | | + + + + + + | Cl | 106Comment: Testing | 99 - 109 mmol/L | EXTERNAL | | | | performed at [facility];[address] | | LAB | | | | [address];[place] | | | | | | [address] | | | | + + + + + + | CO2 | 24Comment: Testing | 23 - 32 mmol/L | EXTERNAL | | | | performed at [facility];[address] | | LAB | | | | [address];[place] | | | | | | [address] | | | | + + + + + + | Anion Gap | 12Comment: Testing | 5 - 20 mmol/L | EXTERNAL | | | | performed at [facility];[address] | | LAB | | | | [address];[place] | | | | | | [address] | | | | + + + + + + | Glucose, | 103 (H)Comment: Testing | 65 - 99 mg/dL | EXTERNAL | | | Fasting | performed at [facility];[address] | | LAB | | | | [address];[place] | | | | | | [address] | | | | + + + + + + | BUN | 22Comment: Testing | 8 - 25 mg/dL | EXTERNAL | | | | performed at [facility];[address] | | LAB | | | | [address];[place] | | | | | | [address] | | | | + + + + + + | Creatinine | 1.9 (H)Comment: Testing | 0.50 - 1.00 | EXTERNAL | | | | performed at [facility];888 | mg/dL | LAB | | | | [address];[place] | | | | | | [address] | | | | + + + + + + | BUN/Creatin | 12Comment: Testing | | EXTERNAL | | | ine Ratio | performed at [facility];[address] | | LAB | | | | [address];[place] | | | | | | [address] | | | | + + + + + + | Calcium | 7.4 (L)Comment: Testing | 8.5 - 10.5 | EXTERNAL | | | | performed at [facility];888 | mg/dL | LAB | | | | [address];[place] | | | | | | [address] | | | | + + + + + + | Protein, | 6.5Comment: Testing | 6.3 - 8.2 g/dL | EXTERNAL | | | Total | performed at [facility];[address] | | LAB | | | | [address];[place] | | | | | | [address] | | | | + + + + + + | Albumin | 2.2 (L)Comment: Testing | 3.3 - 4.8 g/dL | EXTERNAL | | | | performed at [facility];[address] | | LAB | | | | [address];[place] | | | | | | [address] | | | | + + + + + + | Globulin | 4.4Comment: Testing | 1.3 - 4.9 g/dL | EXTERNAL | | | | performed at [facility];[address] | | LAB | | | | [address];[place] | | | | | | [address] | | | | + + + + + + | A/G Ratio | 0.5 (L)Comment: Testing | 1.0 - 2.4 | EXTERNAL | | | | performed at [facility];[address] | | LAB | | | | [address];[place] | | | | | | [address] | | | | + + + + + + | Bilirubin | 0.5Comment: Testing | 0.1 - 1.5 mg/dL | EXTERNAL | | | Total | performed at [facility];[address] | | LAB | | | | [address];[place] | | | | | | [address] | | | | + + + + + + | ALP, | 148 (H)Comment: Testing | 35 - 115 U/L | EXTERNAL | | | External | performed at [facility];[address] | | LAB | | | | [address];[place] | | | | | | [address] | | | | + + + + + + | AST | 41Comment: SPECIMEN | 10 - 45 U/L | EXTERNAL | | | | SLIGHTLY | | LAB | | | | HEMOLYZEDTesting | | | | | | performed at [facility];[address] | | | | | | [facility];[place] | | | | | | [address] | | | | + + + + + + | ALT | 23Comment: Testing | 10 - 65 U/L | EXTERNAL | | | | performed at [facility];[address] | | LAB | | | | [facility];[place] | | | | | | [address] | | | | + + + [...] | | | | | | at [facility];[address] [facility] | | | | | | [address];[place] [address] | | | | + + [...] WORKUP | | | Testing performed at [facility], [address] [place], [place] | | | [address] | | + + + + +---------+ [...] | | | | | [place] [address] | | | | + + + + + + | Clarity, | CLOUDYComment: Testing | | EXTERNAL | | | Urine | performed at [facility], [address] | | LAB | | | | [address], | | | | | | [place] [address] | | | | + + + + + + | Specific | 1.015Comment: Testing | 1.002 - 1.030 | EXTERNAL | | | [place], | performed at [facility], [address] | | LAB | | | Urine | [address], | | | | | | [place] [address] | | | | + + + + + + | Leukocyte | SMALL (A)Comment: | | EXTERNAL | | | Esterase, | Testing performed at | | LAB | | | Urine | [facility], [address] [facility] | | | | | | [place] | | | | | | [address] | | | | + + + + + + | Nitrite, | NEGATIVEComment: Testing | | EXTERNAL | | | Urine | performed at [facility], [address] | | LAB | | | | [address], | | | | | | [place] [address] | | | | + + + + + + | Urobilinoge | 0.2Comment: Testing | mg/dL | EXTERNAL | | | n, Urine | performed at [facility], [address] | | LAB | | | | [address], | | | | | | [place] [address] | | | | + + + + + + | Protein, | 100 (A)Comment: Testing | mg/dL | EXTERNAL | | | Urine | performed at [facility], [address] | | LAB | | | | [address], | | | | | | [place] [address] | | | | + + + + + + | pH, Urine | 6.5Comment: Testing | 5.0 - 8.0 | EXTERNAL | | | | performed at [facility], [address] | | LAB | | | | [address], | | | | | | [place] [address] | | | | + + + + + + | Blood, | MODERATE (A)Comment: | | EXTERNAL | | | Urine | Testing performed at | | LAB | | | | [facility], [address] | | | | | | [place] | | | | | | [address] | | | | + + + + + + | Ketones | NEGATIVEComment: Testing | mg/dL | EXTERNAL | | | | performed at [facility], [address] | | LAB | | | | [address], | | | | | | [place] [address] | | | | + + + + + + | Bilirubin, | NEGATIVEComment: Testing | | EXTERNAL | | | Urine | performed at [facility], [address] | | LAB | | | | [address], | | | | | | [place] [address] | | | | + + + + + + | Glucose, | NEGATIVEComment: Testing | mg/dL | EXTERNAL | | | Urine | performed at [facility], [address] | | LAB | | | | [address], | | | | | | [place] [address] | | | | + + + [...] EXTERNAL | | | | performed at [facility], [address] | | LAB | | | | [address], | | | | | | [place] [address] | | | | + + + + + + | RBC, UA | 1-5Comment: Testing | 0 - 5 /hpf | EXTERNAL | | | | performed at [facility], [address] | | LAB | | | | [address], | | | | | | [place] [address] | | | | + + + + + + | Epithelial | 0-2Comment: Testing | /lpf | EXTERNAL | | | Cells | performed at [facility], [address] | | LAB | | | | [address], | | | | | | [place] [address] | | | | + + + + + + | Bacteria, | TRACE (A)Comment: | | EXTERNAL | | | UA | Testing performed at | | LAB | | | | [facility], [address] | | | | | | [place] | | | | | | [address] | | | | + + + + + + | Urinalysis | CULTURE TO | | EXTERNAL | | | Comments | FOLLOWComment: Testing | | LAB | | | | performed at [facility], [address] | | | | | | [address], | | | | | | [place] [address] | | | | + + + [...] EXTERNAL | | | | performed at [facility];888 | mg/dL | LAB | | | | [address];[place], [place] | | | | | | [address] | | | | + + + [...] LAB | | C.diffAbnormal Testing performed at [facility];[address] [place] [address];[place], [place] | | | [phone] NAP1 BI 027 NAP1 BI | | | PRESUMPTIVE NEGATIVE Detection of 027 NAP1 BI strains of C. difficile | | | is presumptive and for epidemiological purposes and not intended to | | | guide or monitor treatment for C. difficile infections. Testing | | | performed at [facility];[address] [place] [address];[place] [address] | | + + + + +---------+ [...] EXTERNAL | | | | performed at [facility];888 | mmol/L | LAB | | | | [address];[place] | | | | | | [address] | | | | + + + [...] | | | | | | at [facility];[address];[place] [address] | | | | + + + [...] EXTERNAL | | | | performed at [facility];[address] | | LAB | | | | [facility], [place] | | | | | | [address] | | | | + + + [...] | | | | | performed at [facility];[address] | | | | | | [address];[place], [place] | | | | | | [address] | | | | + + + [...] K/uL | LAB | | | | [facility];[address];[place] [address] | | | | + + + + + + | Non- | 3.66 (L)Comment: Testing | 3.70 - 5.10 | EXTERNAL | | | Red Blood | performed at [facility];888 | M/uL | LAB | | | Cells | [address];[place] | | | | | Counted | [address] | | | | + + + + + + | Hemoglobin | 12.6Comment: Testing | 11.3 - 15.5 | EXTERNAL | | | | performed at [facility];888 | g/dL | LAB | | | | [address];[place] | | | | | | [address] | | | | + + + + + + | Hematocrit, | 38.9Comment: Testing | 34.0 - 46.0 % | EXTERNAL | | | POC | performed at [facility];[address] | | LAB | | | | [address];[place] | | | | | | [address] | | | | + + + + + + | MCV | 106.3 (H)Comment: | 80.0 - 100.0 fl | EXTERNAL | | | | Testing performed at | | LAB | | | | [facility];[address];[place] [address] | | | | + + + + + + | MCH | 34.3 (H)Comment: Testing | 27.0 - 34.0 pg | EXTERNAL | | | | performed at [facility];[address] | | LAB | | | | [address];[place] | | | | | | [address] | | | | + + + + + + | MCHC | 32.3Comment: Testing | 32.0 - 35.5 | EXTERNAL | | | | performed at [facility];888 | g/dL | LAB | | | | [address];[place] | | | | | | [address] | | | | + + + + + + | RDW-CV | 54.7 (H)Comment: Testing | 37 - 53 fl | EXTERNAL | | | | performed at [facility];[address] | | LAB | | | | [address];[place] | | | | | | [address] | | | | + + + + + + | Platelet | 167Comment: Testing | 150 - 400 K/uL | EXTERNAL | | | Count | performed at [facility];888 | | LAB | | | Plasma | [address];[place] | | | | | | [address] | | | | + + + + + + | MPV | 10.6Comment: Testing | fl | EXTERNAL | | | | performed at [facility];[address] | | LAB | | | | [address];[place] | | | | | | [address] | | | | + + + + + + | Differentia | MANUALComment: Testing | | EXTERNAL | | | l Type | performed at [facility];[address] | | LAB | | | | [address];[place] | | | | | | [address] | | | | + + + + + + | Segmented | 54Comment: Testing | % | EXTERNAL | | | Neutrophils | performed at [facility];[address] | | LAB | | | Manual | [address];[place] | | | | | | [address] | | | | + + + + + + | % Bands | 18Comment: Testing | % | EXTERNAL | | | | performed at [facility];[address] | | LAB | | | | [address];[place] | | | | | | [address] | | | | + + + + + + | Lymphocytes | 16Comment: Testing | % | EXTERNAL | | | Manual | performed at [facility];[address] | | LAB | | | | [address];[place] | | | | | | [address] | | | | + + + + + + | Monocytes | 12Comment: Testing | % | EXTERNAL | | | Manual | performed at [facility];[address] | | LAB | | | | [address];[place] | | | | | | [address] | | | | + + + + + + | Absolute | 10.69 (H)Comment: | 1.90 - 7.40 | EXTERNAL | | | Neutrophils | Testing performed at | K/uL | LAB | | | | [facility];[address];[place] [address] | | | | + + + + + + | Bands | 3.56 (H)Comment: Testing | 0.00 - 0.20 | EXTERNAL | | | Manual | performed at [facility];888 | K/uL | LAB | | | | [address];[place] | | | | | | [address] | | | | + + + + + + | Absolute | 3.16Comment: Testing | 1.00 - 3.90 | EXTERNAL | | | Lymphocytes | performed at [facility];888 | K/uL | LAB | | | | [address];[place] | | | | | | [address] | | | | + + + + + + | Absolute | 2.37 (H)Comment: Testing | 0.00 - 0.80 | EXTERNAL | | | Monocytes | performed at [facility];888 | K/uL | LAB | | | | [address];[place] | | | | | | [address] | | | | + + + + + + | Platelet | ADEQUATEComment: Testing | | EXTERNAL | | | Estimate | performed at [facility];[address] | | LAB | | | | [address];[place] | | | | | | [address] | | | | + + + + + + | RBC | NORMAL PLT MORPHComment: | | EXTERNAL | | | Morphology | 1+ANISOTesting | | LAB | | | | performed at [facility] [place];[address] | | | | | | [address];[place] | | | | | | [address] | | | | | | | [...] EXTERNAL | | | | performed at [facility];888 | uIU/mL | LAB | | | | Ciro Garcia;[place], [place] | | | | | | [address] | | | | + + + [...] EXTERNAL | | | | performed at [facility];888 | | LAB | | | | Ciro Lu;[place] | | | | | | [address] | | | | + + + [...] | | LAB | | | | [facility];[address];[place] [address] | | | | + + + [...] EXTERNAL | | | | performed at [facility] | | LAB | | | | Ciro Garcia;[place], [place] | | | | | | [address] | | | | + + + [...] EXTERNAL | | | | performed at [facility];888 | | LAB | | | | Ciro Lu;[place] | | | | | | [address] | | | | + + + [...] EXTERNAL | | | | performed at [facility];888 | mmol/L | LAB | | | | [address];[place] | | | | | | [address] | | | | + + + + + + | K | 3.4 (L)Comment: Testing | 3.5 - 4.9 | EXTERNAL | | | | performed at [facility];888 | mmol/L | LAB | | | | [address];[place] | | | | | | [address] | | | | + + + + + + | Cl | 101Comment: Testing | 99 - 109 mmol/L | EXTERNAL | | | | performed at [facility];[address] | | LAB | | | | [address];[place] | | | | | | [address] | | | | + + + + + + | CO2 | 27Comment: Testing | 23 - 32 mmol/L | EXTERNAL | | | | performed at [facility];[address] | | LAB | | | | [address];[place] | | | | | | [address] | | | | + + + + + + | Anion Gap | 12Comment: Testing | 5 - 20 mmol/L | EXTERNAL | | | | performed at [facility];[address] | | LAB | | | | [address];[place] | | | | | | [address] | | | | + + + + + + | Glucose, | 106 (H)Comment: Testing | 65 - 99 mg/dL | EXTERNAL | | | Fasting | performed at [facility];[address] | | LAB | | | | [address];[place] | | | | | | [address] | | | | + + + + + + | BUN | 18Comment: Testing | 8 - 25 mg/dL | EXTERNAL | | | | performed at [facility];[address] | | LAB | | | | [address];[place] | | | | | | [address] | | | | + + + + + + | Creatinine | 1.3 (H)Comment: Testing | 0.50 - 1.00 | EXTERNAL | | | | performed at [facility];888 | mg/dL | LAB | | | | [address];[place] | | | | | | [address] | | | | + + + + + + | BUN/Creatin | 14Comment: Testing | | EXTERNAL | | | ine Ratio | performed at [facility];[address] | | LAB | | | | [address];[place] | | | | | | [address] | | | | + + + + + + | Calcium | 7.3 (L)Comment: Testing | 8.5 - 10.5 | EXTERNAL | | | | performed at [facility];888 | mg/dL | LAB | | | | [address];[place] | | | | | | [address] | | | | + + + + + + | Protein, | 7.9Comment: Testing | 6.3 - 8.2 g/dL | EXTERNAL | | | Total | performed at [facility];[address] | | LAB | | | | [address];[place] | | | | | | [address] | | | | + + + + + + | Albumin | 2.5 (L)Comment: Testing | 3.3 - 4.8 g/dL | EXTERNAL | | | | performed at [facility];[address] | | LAB | | | | [address];[place] | | | | | | [address] | | | | + + + + + + | Globulin | 5.4 (H)Comment: Testing | 1.3 - 4.9 g/dL | EXTERNAL | | | | performed at [facility];[address] | | LAB | | | | [address];[place] | | | | | | [address] | | | | + + + + + + | A/G Ratio | 0.5 (L)Comment: Testing | 1.0 - 2.4 | EXTERNAL | | | | performed at [facility];[address] | | LAB | | | | [address];[place] | | | | | | [address] | | | | + + + + + + | Bilirubin | 0.6Comment: Testing | 0.1 - 1.5 mg/dL | EXTERNAL | | | Total | performed at [facility];[address] | | LAB | | | | [address];[place] | | | | | | [address] | | | | + + + + + + | ALP, | 188 (H)Comment: Testing | 35 - 115 U/L | EXTERNAL | | | External | performed at [facility];[address] | | LAB | | | | [address];[place] | | | | | | [address] | | | | + + + + + + | AST | 51 (H)Comment: Testing | 10 - 45 U/L | EXTERNAL | | | | performed at [facility];[address] | | LAB | | | | [address];[place] | | | | | | [address] | | | | + + + + + + | ALT | 30Comment: Testing | 10 - 65 U/L | EXTERNAL | | | | performed at [facility];888 | | LAB | | | | [address] [facility];[place], [place] | | | | | | [address] | | | | + + + [...] | | | | | | at [facility];[address];[place] [address] | | | | + + + [...] Conversion - 01/05/2019 4:32 AM PDT COLE [id number] yearsXR | | CHEST 1 VIEW01/28/2015 2:40 [...]
--- OUTSIDE RECORDS SUMMARY | ~2019-12-24 | XMS | Clinical Summary ---
Demographics + + + | Address | [address] | | | [place] [address] | + + + | Home Phone | | + + + | Preferred Language | Unknown | + + + | Marital Status | Unknown | + + + | Denominational Affiliation | Unknown | + + + | Race | Unknown | + + + | Ethnic Group | Unknown | + + + Author + + + | Author | [facility] | + + + | Organization | [facility] | + + + | Address | Unknown | + + + | Phone | Unavailable | + + + Care Team Providers + +------+ + | Care Lead Application Architect Name | Role | Phone | + +------+ + PCP | Unavailable | + +------+ + Source Comments JAYDEN is fully live on both [facility] and [facility] In[facility] Allergies Not on File Medications Not on file Active Problems Not on file Social History + +-------+ +--------+------+ | Tobacco [...]
--- OUTSIDE RECORDS SUMMARY | ~2019-12-24 | XMS | Encounter Summary ---
Demographics + + + | Address | [address] | | | [place] [address] | + + + | Home Phone [...] Team Providers + +------+ + | Care Global Engineering Manager Name | Role | Phone | [...] [address] | Dx) | | | | [place], | [place], [place] | | | | | [place] [address] | [address] | | | | | [phone] | | | +--------+ + + + [...] | | | Visit | | [address] [facility] | | | | | | [address] | | | | | | | | +--------+ + + + + | 03/20/ | Office | Cardiology | Jessica Barnes | | | 2020 | Visit | | [address] | | | [address] | | | | | | [place] [address] | | | | | | [phone] | | | | | | | | +--------+ + + + + documented as of this encounter Visit Diagnoses + + | Diagnosis | + + | Hypoxemia - Primary | + + documented in this encounter
--- OUTSIDE RECORDS SUMMARY | ~2019-12-24 | XMS | Encounter Summary ---
Demographics + + + | Address | [address] | | | [place] [address] | + + + | Home Phone | | + + + | Preferred Language | Unknown | + + + | Marital Status | Single | + + + | Restorationism Affiliation | 1041 | + + + | Race | Unknown | + + + | Ethnic Group | Unknown | + + + Author + + + | Author | [facility] | | | and [place] | + + + | Organization | [facility] | | | [...] Team Providers + +------+ + | Care Guest Services Director Name | Role | Phone | + +------+ + | Rick Osorio DO | PCP | | + +------+ + Encounter Details +--------+ + + + + | Date | Type | Department | Care Team | Description | +--------+ + + + + | 11/06/ | Orders Only | [facility] | Emil Oliva MD | Essential | | 2020 | | NEPRHOLOGY [place] | [address] | hypertension, benign | | | | [address] | [address] [place], [place] | (Primary Dx); CKD | | | | [address] [place], [place] | [address] | (chronic kidney | | | | [address] | | disease), stage III | | | | [phone] | | (HCC); Proteinuria, | | | | | | unspecified type | +--------+ + + + + Social [...] + documented as of this encounter Progress Monica Haro, Collective Bargaining Specialist - 11/07/2019 10:[address] Oliva: Schedule SOON in our [place] office Initial labs prior to scheduled appt. docum ented in this encounter Plan of Treatment +--------+ [...] [place] | | | | | | [address] | | | | | | | | +--------+ + + + + | 03/20/ | Office | Cardiology | Jessica Barnes | | | 2019 | Visit | | [address] | | | | [address] | | | | | | [place] [address] | | | | | | [phone] | | | | | | | | +--------+ + + + + + +------+--------+ + + | Name | Type | Priori | Associated Diagnoses | Order Schedule | | | | ty | | | + +------+--------+ + + | Basic Metabolic | Lab | Routin | Essential | Expected: | | Panel | | e | hypertension, benign | 11/21/2019, Expires: | | | | | CKD (chronic | 11/20/2020 | | | | | kidney disease), | | | | | | stage III (HCC) | | | | | | Proteinuria, | | | | | | unspecified type | | + +------+--------+ + + | CBC with | Lab | Routin | Essential | Expected: | | Differential | | e | hypertension, benign | 11/21/2019, Expires: | | | | | CKD (chronic | 11/20/2020 | | | | | kidney disease), | | | | | | stage III (HCC) | | | | | | Proteinuria, | | | | | | unspecified type | | + +------+--------+ + + | Magnesium | Lab | Routin | Essential | Expected: | | | | e | hypertension, benign | 11/21/2019, Expires: | | | | | CKD (chronic | 11/20/2020 | | | | | kidney disease), | | | | | | stage III (HCC) | | | | | | Proteinuria, | | | | | | unspecified type | | + +------+--------+ + + | Protein/Creatinine | Lab | Routin | Essential | Expected: | | Ratio, Urine | | e | hypertension, benign | 11/21/2019, Expires: | | | | | CKD (chronic | 11/20/2020 | | | | | kidney disease), | | | | | | stage III (HCC) | | | | | | Proteinuria, | | | | | | unspecified type | | + +------+--------+ + + | Uric Acid | Lab | Routin | Essential | Expected: | | | | e | hypertension, benign | 11/21/2019, Expires: | | | | | CKD (chronic | 11/20/2020 | | | | | kidney disease), | | | | | | stage III (HCC) | | | | | | Proteinuria, | | | | | | unspecified type | | + +------+--------+ + + | Urinalysis with | Lab | Routin | Essential | Expected: | | Microscopic if | | e | hypertension, benign | 11/21/2019, Expires: | | Indicated | | | CKD (chronic | 11/20/2020 | | | | | kidney disease), | | | | | | stage III (HCC) | | | | | | Proteinuria, | | | | | | unspecified type | | + +------+--------+ + + documented as of this encounter Visit Diagnoses + + | Diagnosis | + + | Essential hypertension, benign - Primary | + + | CKD (chronic kidney disease), stage III (HCC) Chronic kidney disease, Stage III | | (moderate) | + + | Proteinuria, unspecified type | + + documented in this encounter"
--- OUTSIDE RECORDS SUMMARY | ~2019-12-24 | XMS | Encounter Summary ---
Demographics + + + | Address | [address] | | | [place] [address] | + + + | Home Phone [...] Team Providers + +------+ + | Care Communications Specialist Name | Role | Phone | [...] | | | | | [place], | [address] | | | | | [place] [address] | [phone] | | | | | [phone] | | | +--------+ + + + [...]
--- OUTSIDE RECORDS SUMMARY | ~2019-12-24 | XMS | Encounter Summary ---
Demographics + + + | Address | [address] | | | [place] [address] | + + + | Home Phone [...] Providers + +------+ + | Care Wire Stretcher Name | Role | Phone | + [...] | | [address] | [facility] [place] | | | | | [place], | [address] | | | | | [place] [address] | [phone] | | | | | [phone] | | | +--------+ + + + [...] + | [facility] | | | [phone] | | [facility] | | | | + +---------+ + + | [facility] | | [place], [place] | [phone] | | HOSPITAL | | | | + +---------+ + + documented in this encounter Visit Diagnoses Not on filedocumented in this encounter"
--- OUTSIDE RECORDS SUMMARY | ~2019-12-24 | XMS | Encounter Summary ---
Demographics + + + | Address | [address] | | | [place] [address] | + + + | Home Phone | | + + + | Preferred Language | Unknown | + + + | Marital Status | Unknown | + + + | Episcopal Affiliation | Unknown | + + + [...] Team Providers + +------+ + | Care Secondary Connector Armature Name | Role | Phone | + [...] | | | | | [place], | [place], [place] | | | | | [place] [address] | [address] | | | | | [phone] | | | +--------+ + + + [...]
--- OUTSIDE RECORDS SUMMARY | ~2019-12-24 | XMS | Encounter Summary ---
Demographics + + + | Address | [address] | | | [place] [address] | + + + | Home Phone [...] Team Providers + +------+ + | Care Organization Development Consultant Name | Role | Phone | + +------+ + | Yovani Santana MD | PCP | | + +------+ + Encounter Details +--------+ + + + + | Date | Type | Department | Care Team | Description | +--------+ + + + + | 03/26/ | Hospital | [facility] | Melendez, Gary, | Hypoxemia; Kyphosis | | 2014 | Encounter | MED CTR PULMONARY | MD [address] | deformity of spine | | | | FUNCTION [address] | [place], [place] | | | | | [place], | [address] | | | | | [place] [address] | | | | | | [phone] | | | +--------+ + + + [...] +---------+--------+ + documented as of this encounter Procedure Notes Gary Melendez MD - 03/27/2014 1:24 PM PSTAssociated Order(s): PFT PULMONARY FUNCTION TESTING ORDERSProcedure(s): PFT PULMONARY FUNCTION TESTING ORDERSPre-Procedure Diagnose(s): Hypoxemia; Kyphosis deformity of spine PULMONARY FUNCTION TESTING SPIROMETRY: The FVC was 1.13 L or 40 % of predicted. The FEV1 was 0.93 L or 43 % of predict ed. FEV1/FVC ratio was 82 %. LUNG VOLUMES: The total lung capacity was 2.10 L or 43 % of predicted. The residual volume was 0.95 L or 46 % of predicted. RV/TLC ratio was 107 % of predicted. DIFFUSION CAPACITY: The diffusion capacity was 7.8mL/mmHg per minute or 34 % of predicted. IMPRESSION: Spirometry is consistent with severe restrictive physiology. Lung volume testin g is consistent with severe restrictive physiology. Diffusion capacity is severely reduced a nd is not corrected for measured hemoglobin. No prior pulmonary function tests available for comparison. Test performed: 03/26/14 Electronically signed by: Gary Melendez MD 03/27/2014 13:24 [facility] Electronically signed by Gary Melendez MD at 1 05/27/2013 1:25 PM [facility] - 03/26/2014 12:00 AM PSTAssociated Order(s): DIAGNOS TIC REPORT - EXTERNAL SCAN N [facility] - 03/26/2014 12:00 AM PSTAssociated Order(s): DIAGNOSTIC REPORT - EXTERNAL SC AN documented in this encount er Plan of Treatment +--------+ + + + + | Date | Type | Specialty | Care Team | Description | +--------+ + + + + | 02/05/ | Virtual | Nephrology | Emil Oliva MD | | | 2019 | Office | | [address] [facility] | | | | Visit | | [address] [place], [place] | | | | | | [address] | | | | | | | | +--------+ + + + + | 03/20/ | Office | Cardiology | Jessica Barnes | | | 2019 | Visit | | [address] | | | | | [address] | | | | | | [place] [address] | | | | | | [phone] | | | | | | | [...] + + + | PFT PULMONARY | [facility] | 03/27/2014 | Hypoxemia | Results for [...] PFT PULMONARY FUNCTION TESTING ORDERS Full PFT ([place] w/BD, lung volumes, diffusion)?: Yes; Rest and [...] 13:24 | | | [facility] | | + + + + + [...] 03/26/14Electronically signed by: Gary [facility] MD [facility]2014 [facility] | | [facility] | | | |No prior pulmonary function tests available for comparison. | | | |Test performed: 03/26/14 | |Electronically signed by: Gary Melendez MD 03/27/2014 13:24 | |[facility] | + + documented in this encounter Visit Diagnoses + + | Diagnosis | + + | Hypoxemia | + + | Kyphosis deformity of spine Kyphosis (acquired) (postural) | + + documented in this encounter"
--- OUTSIDE RECORDS SUMMARY | ~2019-12-24 | XMS | Encounter Summary ---
Demographics + + + | Address | [address] | | | [place] [address] | + + + | Home Phone [...] Team Providers + +------+ + | Care Acute Care Clinical Nurse Specialist Name | Role | Phone | [...] + + | 05/10/ | Office | [facility] | Gary Melendez, | Restrictive lung | | 2013 | Visit | PULMONARY [address] | MD [address] | disease (Primary | | | | [place], | [place], [place] | Dx); Hypoxemia; | | | | [place] [address] | [address] | Kyphosis deformity | | | | [phone] | | of spine | +--------+---------+ + [...] techniques, exercise, and stress management. In some ga ses, a lung transplant is an option. Your healthcare team may include: A primary care provider,such as your family doctor. A blocker and cutter contact lens,a specialist in lung problems. A pulmonary nurse specialistwho helps you understand and carry out your treatment. A pulmonary rehabilitation specialistwho helps you gain strength through exercise. A social workerwho helps with your daily needs, family life, and stress. [id number] [employer]. [address] [place] [address]. All righ ts reserved. This information is not intended as a substitute for professional medical care. Always follow your healthcare professional's instructions. documented in this encounter Progress Notes Gary Melendez MD - 05/10/2014 2:10 PM PSTFormatting of this note might be different f rom the original. Pulmonary Clinic Follow Up 05/10/2014 HEATHER Opal Petty is a 68 y.o. female [...] followup appointment in 6 months time to shabbir abarca the status of her symptoms. If the [...] 2019 | Office | | [address] [facility] | | | | Visit | | [address] [place], [place] | | | | | | [address] | | | | | | | | +--------+ + + + + | 03/20/ | Office | Cardiology | Jessica Barnes | | | 2019 | Visit | | [address] | | | | | [address] | | | | | | [place] [address] | | | | | | [phone] | | | | | | | [...]
--- OUTSIDE RECORDS SUMMARY | ~2019-12-24 | XMS | Encounter Summary ---
Demographics + + + | Address | [address] | | | [place] [address] | + + + | Home Phone | | + + + | Preferred Language | Unknown | + + + | Marital Status | Single | + + + | Tenriism Affiliation | 1041 | + + + [...] Team Providers + +------+ + | Care Flask Maker Name | Role | Phone | + +------+ + | Rick Osorio DO | PCP | | + +------+ + Reason for Visit +--------+--------+ + | Reason | Onset | Comments | | | Date | | +--------+--------+ + | Other | 11/28/ | Request for Medical Records | | | 2020 | | +--------+--------+ + Encounter Details +--------+ + + + + | Date | Type | Department | Care Team | Description | +--------+ + + + + | 11/28/ | Telephone | [facility] | Kavya Schwab | Other (Request for | | 2019 | | NEPRHOLOGY [place] | Luis, Medical | Medical Records) | | | | [address] | Wall Crane Operator | | | | | [address] [place], [place] | | | | | | [address] | | | | | | [phone] | | | +--------+ + + + [...] + + documented as of this encounter Miscellaneous Notes Telephone Encounter - Kavya Schwab Senior Statistician - 11/29/2019 11:56 AM PDTFaxe d request for recent hospitalization note and most recent Renal US. Confirmation received. Electronically signed by Kayva Schwab Senior Statistician at 0 11/29/2019 11:57 AM PDTdocumented in this encounter Plan of Treatment +--------+ + + + + | Date | Type | Specialty | Care Team | Description | +--------+ + + + + | 02/05/ | Virtual | Nephrology | Emil Oliva MD | | | 2019 | Office | | [address] | | | | Visit | | [address] [place], [place] | | | | | | [address] | | | | | | | | +--------+ + + + + | 03/20/ | Office | Cardiology | Jessica Barnes | | 2019 | Visit | | [address] | | | | | [address] | | | | | | [place] [address] | | | | | | [phone] | | | | | | | | +--------+ + + + + documented as of this encounter Visit Diagnoses Not on filedocumented in this encounter"
--- OUTSIDE RECORDS SUMMARY | ~2019-12-24 | XMS | Encounter Summary ---
Demographics + + + | Address | [address] | | | [place] [address] | + + + | Home Phone [...] Author + + + | Author | [facility] | | | and [place] | + + + | Organization | [facility] | | [...] + | 11/15/ | Orders Only | [facility] | Emil Oliva MD | | | 2014 | | NEPRHOLOGY [place] | [address] | | | | | [address] | [address] [place], [place] | | | | | [address] [place], [place] | [address] | | | | | [address] | | | | | | [phone] | | | +--------+ + + + [...] 2019 | Office | | [address] [facility] | | | | Visit | | [address] [place] | | | | | | [address] | | | | | | | | +--------+ + + + + | 03/20/ | Office | Cardiology | Jessica Barnes | | | 2019 | Visit | | [address] | | | | | [address] | | | | | | [place] [address] | | | | | | [phone] | | | | | | | [...] + + + + | Non- | 3.16 (A) | 3.8 - 5.1 10 | EXTERNAL | | | Red [...] + + + + + + | eGFR, | | | EXTERNAL | | | non- | | | LAB | | | German | | | | | + + [...]
--- OUTSIDE RECORDS SUMMARY | ~2019-12-24 | XMS | Encounter Summary ---
Demographics + + + | Address | [address] | | | [place] [address] | + + + | Home Phone | | + + + | Preferred Language | Unknown | + + + | Marital Status | Single | + + + | Shinto Affiliation | 1041 | + + + [...] Team Providers + +------+ + | Care Topline Beading Machine Tender Name | Role | Phone | + +------+ + | Rick Osorio DO | PCP | | + +------+ + Reason for Visit +---------+ + | Reason | Comments | +---------+ + | Results | shobha-11/24/2019 | +---------+ + Encounter Details +--------+ + + + + | Date | Type | Department | Care Team | Description | +--------+ + + + + | 11/27/ | Documentati | [facility] | Batsheva Bellamy, | Results | | 2019 | on | NEPRHOLOGY [place] | Capper Machine Operator | (interpath-11/24/2019) | | | | [address] | | | | | | [address] [place], [place] | | | | | | [address] | | | | | | [phone] | | | +--------+ + + + [...] 2019 | Office | | [address] | | | | Visit | | [address] [place] | | | | | | [address] | | | | | | | | +--------+ + + + + | 03/20/ | Office | Cardiology | MollyJessica | | | 2019 | Visit | | [address] | | | | | [address] | | | | | | [place] [address] | | | | | | [phone] | | | | | | | [...] in this encounter Results CBC with Differential (11/24/2019) + + + + + + [...] + | Blood | + + Vitamin B-12 (11/24/2019) + + [...] Blood | + + Comprehensive Metabolic Panel (11/24/2019) + + + + + + [...]
--- OUTSIDE RECORDS SUMMARY | ~2019-12-24 | XMS | Encounter Summary ---
Demographics + + + | Address | [address] | | | [place] [address] | + + + | Home Phone [...] Providers + +------+ + | Care Supply And Distribution Manager Name | Role | Phone | [...] [place], [place] | | | | | [place], [place] | [address] | | | | | [address] | | | | | | [phone] | | | +--------+ + + + [...] 2019 | Office | | [address] [facility] [address] | | | | Visit | | [address] | | | | | | [address] | | | | | | | | +--------+ + + + + | 03/20/ | Office | Cardiology | Parvezdaniel Jessica | | | 2020 | Visit | | [address] | | | | | | [address] | | | | | | [place] [address] | | | | | | [phone] | | | | | | | [...] 0.03 m/s | | | MV Dec [place]: 9.74 m/s2 MV DecT: 91.63 ms MV E Billy: 0.89 | | | m/s MV E/A Ratio: 26.03 MV PHT: 26.57 ms MVA By PHT: 8.27 | | | cm2 Septal e': 0.06 m/s Septal E/e': 12.90 Lateral e': | | | 0.09 m/s Lateral E/e': 8.96 RAP: 5 mmHg RVSP: 17.59 mmHg | | | TR maxP.59 mmHg TR Vmax: 1.77 m/s Restaurant Crew: NAIF | | | Authenticated by: Conor Garcia Report Date/Time: -- | | | 64_[id number]_0:51:12 | | + + + + + | Procedure Note | + + | Manuel Blake - 01/11/2019 3:56 PM PDT Patient Name: Jorge ERNST | | : 1945 Performing Physician: Conor [...] cmLVPWd: 1.14 cmLVOT | | Area: 3.33 [id number] Diam: 2.06 cm%FS: 26.43 %EF(Teich): 51.67 %ESV(Teich): [...] (A-L): | | 45.82 ml/m2LAAs A2C: 22.15 in0QFXLR A-L A2C: 71.25 mlLALs A2C: 5.84 cmLAAs A4C: | | 28.64 nj3GEZFV A-L A4C: 104.24 mlLALs A4C: 6.68 cmRAAs: 14.65 so1NSNDA A-L: | | 33.90 mlRAESV MOD: 34.21 mlRALs: 5.37 cmAV maxP.81 mmHgAV meanP.70 | | mmHgAV Vmax: 1.30 m/Sorin Vmean: 0.90 m/oSrin VTI: 24.74 cmAVA Vmax: 2.36 cm2AVA | | (VTI): 2.24 ij3BWVJ maxP.41 mmHgLVOT meanP.88 mmHgLVSI Dopp: 27.63 | | ml/m2LVSV Dopp: 55.54 mlLVOT Vmax: 0.92 m/sLVOT Vmean: 0.64 m/sLVOT VTI: 16.66 | | cmMV A Billy: 0.03 m/sMV Dec [place]: 9.74 m/s2MV DecT: 91.63 msMV E Billy: 0.89 m/sMV | | E/A Ratio: 26.03MV PHT: 26.57 msMVA By PHT: 8.27 kj3Actndg e': 0.06 m/sSeptal | | E/e': 12.90Lateral e': 0.09 m/sLateral E/e': 8.96RAP: 5 mmHgRVSP: 17.59 mmHgTR | | maxP.59 mmHgTR Vmax: 1.77 m/s Restaurant Crew: SUNNYuthenticated by: Conor | | [facility] Date/Time: -- 08_24-7-1487_8:51:12 IMPRESSION: 1. The left ventricle is | [...] A Billy: 0.03 m/s | |MV Dec [place]: 9.74 m/s2 | |MV DecT: 91.63 ms [...] |TR Vmax: 1.77 m/s | | | |Restaurant Crew: NAIF | |Authenticated by: Conor Garcia | |Report Date/Time: -- 54_57-2-1428_9:51:12 | | | |IMPRESSION: | |1. The [...]
--- OUTSIDE RECORDS SUMMARY | ~2019-12-24 | XMS | Encounter Summary ---
Demographics + + + | Address | [address] | | | [place] [address] | + + + | Home Phone [...] Team Providers + +------+ + | Care Stretch Box Tender Name | Role | Phone | [...] | [address] | [facility] [place] | | | | | [place], | [address] | | | | | [place] [address] | [phone] | | | | | [phone] | | | +--------+ + + + [...]
--- OUTSIDE RECORDS SUMMARY | ~2019-12-24 | XMS | Encounter Summary ---
Demographics + + + | Address | [address] | | | [place] [address] | + + + | Home Phone [...] Team Providers + +------+ + | Care Producer Name | Role | Phone | + +------+ + | Rick Osorio DO | PCP | | + +------+ + Encounter Details +--------+ + + + + | Date | Type | Department | Care Team | Description | +--------+ + + + + | 12/05/ | Orders Only | [facility] | Emil Oliva MD | | | 2013 | | NEPRHOLOGY DAHINDA | [address] | | | | | [address] | [address] [place], [place] | | | | | [address] [place], [place] | [address] | | | | | [address] | | | | | | [phone] | | | +--------+ + + + [...] [place] | | | | | | [address] | | | | | | | | +--------+ + + + + | 03/20/ | Office | Cardiology | Jessica Barnes | | | 2020 | Visit | | [address] | | | | | [address] | | | | | | [place] [address] | | | | | | [phone] | | | | | | | [...]
--- OUTSIDE RECORDS SUMMARY | ~2019-12-24 | XMS | Encounter Summary ---
Demographics + + + | Address | [address] | | | [place] [address] | + + + | Home Phone | | + + + | Preferred Language | Unknown | + + + | Marital Status | Single | + + + | Voodoo Affiliation | [id number] | + + + [...] Team Providers + +------+ + | Care Plant Wrapper Name | Role | Phone | + +------+ + | Yovani Santana MD | PCP | | + +------+ + Encounter Details +--------+ + + + + | Date | Type | Department | Care Team | Description | +--------+ + + + + | 05/10/ | Hospital | [facility] | Gary Melendez, | Hypoxemia; | | 2014 | Encounter | MED CTR XRAY [address] | MD [address] | Restrictive lung | | | | [place] | [place], [place] | disease | | | | [place] [address] | [address] | | | | | [phone] | | | | | | | [...] 2019 | Office | | [address] [facility] | | | | Visit | | [address] | | | | | | [address] | | | | | | | | +--------+ + + + + | 03/20/ | Office | Cardiology | Jessica Barnes | | | 2019 | Visit | | [address] | | | | | | [address] | | | | | | [place] [address] | | | | | | [phone] | | | | | | | [...] + | MISCELLANEOUS LAB | | | [phone] | + +---------+ + + | MISCELANIOUS LAB | | | [phone] | + +---------+ + + documented in this encounter Visit Diagnoses + + | Diagnosis | + + | Hypoxemia | + + | Restrictive lung disease Other diseases of lung, not elsewhere classified | + + documented in this encounter"
--- OUTSIDE RECORDS SUMMARY | ~2019-12-24 | XMS | Encounter Summary ---
Demographics + + + | Address | [address] | | | [place] [address] | + + + | Home Phone | | + + + | Preferred Language | Unknown | + + + | Marital Status | Unknown | + + + | Judaism Affiliation | Unknown | + + + | Race | Unknown | + + + | Ethnic Group | Unknown | + + + Author + + + | Author | [facility] | + + + | Organization | [facility] | + + + | Address | Unknown | + + + | Phone | Unavailable | + + + Care Team Providers + +------+ + | Care Facility Sales And Admin Name | Role | Phone | + [...] | [address] | [facility] [place] | | | | | [place], | [address] | | | | | [place] [address] | [phone] | | | | | [phone] | | | +--------+ + + + [...] + | [facility] | | | [phone] | | [facility] | | | | + +---------+ + + | [facility] | | [place], [place] | [phone] | | [facility] | | | | + +---------+ + + documented in this encounter Visit Diagnoses Not on filedocumented in this encounter"
--- OUTSIDE RECORDS SUMMARY | ~2019-12-24 | XMS | Clinical Summary ---
Demographics + + + | Address | [address] | | | [place] [address] | + + + | Home Phone | | + + + | Preferred Language | Unknown | + + + | Marital Status | Unknown | + + + | Shinto Affiliation | Unknown | + + + | Race | Unknown | + + + | Ethnic Group | Unknown | + + + Author + + + | Author | [facility] | + + + | Organization | [facility] | + + + | Address | Unknown | + + + | Phone | Unavailable | + + + Care Team Providers + +------+ + | Care Sample Paster Name | Role | Phone | + +------+ + PCP | Unavailable | + +------+ + Source Comments JAYDEN is fully live on both [facility] and [facility] Allergies Not on File Medications Not on [...]
--- OUTSIDE RECORDS SUMMARY | 2019-12-24 10:52 | XMS ---
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 Care History Medical/Surgical 11/01/2019 [facility] Patient has follow up visit with Dr. De Jesus on 11/06/2019.\T\nbsp; Left voice mail re: ED visit for itch.\T\nbsp; 10/08/2019 [facility] - PATIENT HAS AN APT WITH DR DE JESUS ON 10/16/2019 FOR FOLLOW UP TO ED VISIT. 06/13/2019 [facility] Patient being seen for multiple falls.\T\nbsp; Patient has follow up appointment with Dr. De Jesus 06/14/2019 . [facility] NOTE: Visits indicate total known visits. ED/UCC VISIT TRACKING (12 MO.) [facility] COMPLAINT: - SOB 10/31/2019 13:32 [facility] [place] TYPE: Emergency COMPLAINT: - ITCHY ALL OVER DIAGNOSES: - Chronic kidney disease, unspecified - [facility] (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 - Anxiety disorder, unspecified - Abnormal coagulation profile - Other group home (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 - Pruritus, unspecified - Allergy status to narcotic agent status - Hypothyroidism, unspecified - Unspecified atrial fibrillation 10/16/2019 14:25 [facility] [place] TYPE: Emergency COMPLAINT: - SOB DIAGNOSES: - Other long lines operator (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 - Chronic kidney disease, unspecified - Unspecified atrial fibrillation - Hypothyroidism, unspecified - Shortness of breath - Allergy status to narcotic agent status - Acute kidney failure, unspecified 09/28/2019 20:00 [facility] [place] TYPE: Emergency COMPLAINT: - WEAKNESS DIAGNOSES: - Chronic kidney disease, unspecified - Allergy status to narcotic agent status - Hypothyroidism, unspecified - Other group home (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 - Unspecified atrial fibrillation - Disorientation, unspecified - Disorientation, unspecified 06/13/2019 09:14 [facility] [place] TYPE: Emergency COMPLAINT: - FALL DIAGNOSES: - Hypothyroidism, unspecified - Contusion of right knee, initial encounter - 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 - Unspecified atrial fibrillation - Pain in right knee - Allergy status to narcotic agent status - Other long lines operator (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 - Unspecified fall, initial encounter 06/12/2019 11:06 [facility] [place] TYPE: Emergency COMPLAINT: - FAAKNESS DIAGNOSES: - Weakness - Chronic kidney disease, unspecified - Allergy status to narcotic agent status - Other long lines operator (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 - Hypothyroidism, unspecified - 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 - Unspecified atrial fibrillation 06/03/2019 17:00 [facility] [place] TYPE: Emergency COMPLAINT: - WEAKNESS 05/29/2019 15:14 [facility] [place] TYPE: Emergency COMPLAINT: - HIGH HEARTRATE DIAGNOSES: - Chronic kidney disease, unspecified - Other group home (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 - Allergy status to narcotic agent status - 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 - Hypothyroidism, unspecified - Unspecified atrial fibrillation 05/19/2019 06:17 [facility] [place] TYPE: Emergency COMPLAINT: - SOB DIAGNOSES: - Unspecified atrial fibrillation - Chronic kidney disease, unspecified - 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 - Shortness of breath - Heart failure, unspecified - Allergy status to narcotic agent status - Hypothyroidism, unspecified - Other group home (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 05/09/2019 11:17 [facility] [place] TYPE: Emergency COMPLAINT: - AFIB 05/06/2019 15:13 [facility] [place] TYPE: Emergency COMPLAINT: - HEART PALPITATIONS DIAGNOSES: - Hypothyroidism, unspecified - Allergy status to narcotic agent status - Other long lines operator (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 - Dyspnea, unspecified - Unspecified atrial fibrillation INPATIENT VISIT TRACKING (12 MO.) 10/16/2019 22:03 [...] disease, unspecified 19. History of falling 20. [facility] (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 21. Adverse effect of antineoplastic and immunosuppressive drugs, 22. Adverse effect of drugs affecting uric acid metabolism, initi 06/03/2019 19:31 [facility] [place] TYPE: Medical Surgical COMPLAINT: - UTI DIAGNOSES: - Do not resuscitate - [facility] (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 - Essential (primary) [...] and top - Liver transplant status - 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 assembler (current) use of bisphosphonates - Adverse effect [...] signs of inflammatory arthritis and top - 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 - Anemia, unspecified - Dorsalgia, unspecified - Hyperlipidemia, unspecified - Unspecified mood [affective] disorder - Liver transplant status - Other disorders of lung - [facility] (current) use of bisphosphonates - Acute kidney failure, unspecified - Chronic pain syndrome - Other group home (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 - Psychophysiologic insomnia - Other disorders of lung - Other long lines operator (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 - Psychophysiologic insomnia - Acute cystitis without hematuria - Do not resuscitate - Klebsiella pneumoniae [K. pneumoniae] as the cause of disease - Anemia, unspecified - Allergy status to narcotic agent status 05/09/2019 11:18 [facility] [place] TYPE: Observation COMPLAINT: - AFIB DIAGNOSES: - Chronic respiratory failure with hypoxia - Other long lines operator (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 - 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 assembler (current) use of opiate analgesic - Liver [...] kidney disease, unspecified - Unspecified atrial fibrillation [email or web address]
[2019-12-24] MEDS ORDERED: CARTIA XT180 MG PO (11:15)
[2019-12-24] MEDS ORDERED: CELEXA20 MG PO (12:04)
[2019-12-24] MEDS ORDERED: ZOFRAN4 MG PO (12:06)
[2019-12-24] MEDS ORDERED: ULTRAM50 MG PO (12:07)
--- NOTE | 2019-12-24 13:24 | EKG ---
[facility] [address] [facility] [place] [address] Signed Atrial fibrillation with slow ventricular response T wave abnormality, consider anterior ischemia Abnormal ECG When compared with ECG of 16-OCT-2019 14:33, QT has lengthened Confirmed by TODD ORELLANA DO ([id number]) on 12/24/2019 1:23:43 PM Electronically Signed By: TODD ORELLANA DO 12/24/19 1324 PATIENT NAME: ROGER ERNSTEnid DUVALLRAUDEL Electrocardiogram DATE OF : 45 PHYSICIAN: TODD ORELLANA DO REPORT #: [id number] REPORT IS CONFIDENTIAL AND NOT TO BE RELEASED WITHOUT AUTHORIZATION
== END 2019-12-24 17:30 | disposition short-term general hospital (02) ==
LOC: ED 10:49
PROC: 0T9B70Z Drainage of Bladder with Drainage Device, Via Natural or Artificial Opening (ICD-10-PCS; principal; 2019-12-24)
DX: I95.9 Hypotension, unspecified (principal); R00.1 Bradycardia, unspecified; N18.9 Chronic kidney disease, unspecified; I50.9 Heart failure, unspecified; I48.91 Unspecified atrial fibrillation; E03.9 Hypothyroidism, unspecified; Z88.5 Allergy status to narcotic agent; Z79.899 Other long term (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; Z79.01 Long term (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
CPT/HCPCS: 51702; 71045; 80053; 81001; 83735; 83880; 84484; 85025; 85610; 93005; 93010; 99285-25; J0461; J0610; J1265; J2405; J7050